=== PATIENT | female | born 1955 | race Caucasian/White ===

== ENCOUNTER 2017-08-30 17:26 | Inpatient (IN) | payer MEDICARE ==
[2017-08-30] MEDS ORDERED: Albuterol 0.083% Inhal Sol (2.5 mg/3 mL) UD INH STA (17:47)
[2017-08-30] MEDS ORDERED: Albuterol-Ipratrop 3 mg / 0.5 (3 ml) UD IH STA (17:47)
--- NOTE | 2017-08-30 17:50 | ED PDOC ---
Arrival/HPI - General Chief Complaint: Shortness Of Breath Time Seen by Provider: 08/30/17 17:36 Historian: Patient - History of Present Illness Narrative History of Present Illness (Text): 08/30/17 17:46 A 61 year old female, whose past medical history includes hypertension, hyperlipidemia, CHF, CAD, PE, colorectal cancer and colostomy bag, presents to the emergency department complaining of shortness of breath for 2-3 weeks. Patient reports her symptom has progressively worsened over the past few days which caused her to come in for further evaluation. Patient is conversationally dyspneic, family answering most questions. Patient denies any fever, chills, nausea, vomiting, abdominal pain, chest pain or any other complaints. Patient is on O2 at home. PMD: Dr. Florian Time/Duration: Other (2-3 weeks) Symptom Course: Worsening (past few days) Context: Home Past Medical History - Provider Review Nursing Documentation Reviewed: Yes - Infectious Disease Hx of Infectious Diseases: None - Tetanus Immunization Tetanus Immunization: Unknown - Reproductive Menopause: No - Cardiac Hx Cardiac Disorders: Yes Hx Hypertension: Yes - Neurological Hx Neurological Disorder: Yes Hx Dizziness: Yes - HEENT Hx Macular Degeneration: No - Renal Hx Renal Disorder: Yes Hx Kidney Stones: Yes - Endocrine/Metabolic Hx Diabetes Mellitus Type 2: Yes - Hematological/Oncological Hx Blood Transfusions: No Hx Blood Transfusion Reaction: No - Integumentary Hx Dermatological Disorder: No - Musculoskeletal/Rheumatological Hx Musculoskeletal Disorders: Yes (SCIATICA) Hx Falls: No Hx Unsteady Gait: Yes (WALKER) - Gastrointestinal Hx Gastrointestinal Disorders: Yes (RECTAL CA WITH COLOSTOMY,GI BLEED) - Genitourinary/Gynecological Hx Genitourinary Disorders: Yes (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,UTI) Hx Urinary Tract Infection: Yes - Psychiatric Hx Emotional Abuse: No Hx Physical Abuse: No Hx Substance Use: No - Surgical History Hx Appendectomy: Yes - Anesthesia Hx Anesthesia: Yes Hx Anesthesia Reactions: No Hx Malignant Hyperthermia: No - Suicidal Assessment Feels Threatened In Home Enviroment: No Family/Social History - Physician Review Nursing Documentation Reviewed: Yes Family/Social History: No Known Family HX Smoking Status: Never Smoked Hx Alcohol Use: No Hx Substance Use: No Hx Substance Use Treatment: No Allergies/Home Meds Allergies/Adverse Reactions: Allergies No Known Allergies Allergy (Verified 01/10/16 14:34) Home Medications: Home Meds Medication Instructions Recorded Confirmed Simvastatin 40 mg PO DAILY 03/16/14 01/12/16 ALPRAZolam [Xanax] 0.25 mg PO Q8 PRN 08/27/14 01/12/16 Acetaminophen [Tylenol] 650 mg PO Q4 PRN 08/27/14 01/12/16 Amino Acids/Protein Hydrolys 30 ml PO BID 08/27/14 01/12/16 [Pro-Stat Sugar Free 30 ml] Insulin Human (NPH)/Regular 10 units SC QPM 08/27/14 01/12/16 [Novolin 70/30 (70/30 units/ml) 10 ml] Insulin Human (NPH)/Regular 14 units SC QAM 08/27/14 01/12/16 [Novolin 70/30 (70/30 units/ml) 10 ml] Omeprazole [Prilosec] 20 mg PO BID 08/27/14 01/12/16 Sugar Freehealth Tabs Supplement 4 oz PO TID 08/27/14 01/12/16 HYDROmorphone [Dilaudid] 4 mg PO Q4H PRN 01/03/16 01/12/16 Review of Systems - Physician Review All systems were reviewed & negative as marked: Yes - Review of Systems Constitutional: absent: Fevers, Night Sweats Respiratory: SOB Cardiovascular: absent: Chest Pain Gastrointestinal: absent: Abdominal Pain, Nausea, Vomiting Physical Exam Vital Signs Temp Pulse Resp BP Pulse Ox 08/30/17 21:11 208/103 H 08/30/17 20:00 18 90 L 08/30/17 18:19 98.4 F 95 H 16 100 08/30/17 18:17 228/108 H Appearance: Positive for: Well-Appearing, Non-Toxic, Comfortable, Other ( Morbidly obese female) Pain Distress: None Mental Status: Positive for: Alert and Oriented X 3 - Systems Exam Head: Present: Atraumatic, Normocephalic Pupils: Present: PERRL Extroacular Muscles: Present: EOMI Conjunctiva: Present: Normal Mouth: Present: Moist Mucous Membranes Neck: Present: Normal Range of Motion, JVD Respiratory/Chest: Present: Good Air Exchange, Wheezes, Rales, Other (hoarse voice). No: Respiratory Distress, Accessory Muscle Use Cardiovascular: Present: Regular Rate and Rhythm, Normal S1, S2. No: Murmurs Abdomen: Present: Normal Bowel Sounds. No: Tenderness, Distention, Peritoneal Signs Back: Present: Normal Inspection Upper Extremity: Present: Normal Inspection, Normal ROM, NORMAL PULSES. No: Cyanosis, Edema Lower Extremity: Present: Edema (bilateral pitting edema), NORMAL PULSES, Normal ROM. No: CALF TENDERNESS Neurological: Present: GCS=15, CN II-XII Intact, Speech Normal Skin: Present: Warm, Dry, Normal Color. No: Rashes Psychiatric: Present: Alert, Oriented x 3, Normal Insight, Normal Concentration Medical Decision Making ED Course and Treatment: 08/30/17 17:46 Impression: A 61 year old female with worsening shortness of breath Plan: -- Angio chest CT -- Chest xray -- EKG -- Labs -- Urinalysis -- Albuterol, Duoneb, Lasix and Solumedrol -- Reassess and disposition Progress Notes: EKG shows NSR at [address]-segment elevations, normal intervals, normal axis. Interpreted by me. Report Date : 08/30/2017 18:33:27 Procedure: Chest xray Dictator : Radha Murillo MD IMPRESSION: Moderate cardiomegaly and severe pulmonary venous congestion. Question of mild perihilar pulmonary edema, worse in the right lung. - Lab Interpretations Lab Results: 08/30/17 18:30 08/30/17 18:30 Lab Results 08/30/17 19:00: Urine Color Light yellow, Urine Appearance Sl cloudy, Urine pH 7.0, Ur Specific [place] 1.020, Urine Protein 100 H, Urine Glucose (UA) Negative , Urine Ketones Negative, Urine Blood Small H, Urine Nitrate Positive H, Urine Bilirubin Negative, Urine Urobilinogen 0.2, Ur Leukocyte Esterase Trace H, Urine RBC 1 - 3, Urine WBC 10 - 15, Ur Epithelial Cells 1 - 3, Urine Bacteria Mod 08/30/17 18:30: Sodium 143, Potassium 5.1 H, Chloride 103, Carbon Dioxide 33, Anion Gap 12, BUN 27 H, Creatinine 1.2, Est GFR ( Amer) 55, Est GFR (Non- Af Amer) 46, Random Glucose 158 H, Calcium 9.8, Total Bilirubin 0.4, AST 35, ALT 11, Alkaline Phosphatase 167 H, Lactate Dehydrogenase 535, Total Creatine Kinase 57, Troponin I < 0.01 D, NT-Pro-B Natriuret Pep 1030 H, Total Protein 7.9, Albumin 3.5, Globulin 4.4, Albumin/Globulin Ratio 0.8 L 08/30/17 18:30: PT 12.0, INR 1.05 08/30/17 18:30: WBC 8.5, RBC 3.80, Hgb 10.0 L, Hct 33.3 L, MCV 87.6, MCH 26.3, MCHC 30.0 L, RDW 14.6 H, Plt Count 299, MPV 10.1, Gran % 73.1 H, Lymph % (Auto) 19.4 L, [place] % (Auto) 4.3, Eos % (Auto) 2.8, Baso % (Auto) 0.4, Gran # 6.24, Lymph # (Auto) 1.7, [place] # (Auto) 0.4, Eos # (Auto) 0.2, Baso # (Auto) 0.03 I have reviewed the lab results: Yes - RAD Interpretation Radiology Orders: 08/30/17 17:50 ANGIO CHEST PE PROTOCOL [CT] Stat CHEST PORTABLE [RAD] Stat - Medication Orders Current Medication Orders: Discontinued Medications Albuterol Sulfate (Albuterol 0.083% Inhal [place] (2.5 Mg/3 Ml) Ud) 5 mg INH STAT STA Stop: 08/30/17 17:48 Last Admin: 08/30/17 18:16 Dose: 5 mg Albuterol/Ipratropium (Duoneb 3 Mg/0.5 Mg (3 Ml) Ud) 3 ml IH STAT STA Stop: 08/30/17 17:48 Last Admin: 08/30/17 18:15 Dose: 3 ml Furosemide (Lasix) 40 mg IVP STAT STA Stop: 08/30/17 17:48 Last Admin: 08/30/17 18:17 Dose: 40 mg MAR Blood Pressure Document 08/30/17 18:17 EQ (Rec: 08/30/17 18:17 EQ [id number]) Blood Pressure Blood Pressure (100/60-150/90) 228/108 IVP Administration Document 08/30/17 18:17 EQ (Rec: 08/30/17 18:17 EQ [id number]) Charges for Administration # of IVP Administrations 1 Furosemide (Lasix) 40 mg IVP STAT STA Stop: 08/30/17 20:05 Last Admin: 08/30/17 21:11 Dose: 40 mg MAR Blood Pressure Document 08/30/17 21:11 EQ (Rec: 08/30/17 21:11 EQ [facility] [email or web address] Blood Pressure Blood Pressure (100/60-150/90) 208/103 IVP Administration Document 08/30/17 21:11 EQ (Rec: 08/30/17 21:11 EQ [facility] [email or web address] Charges for Administration # of IVP Administrations 1 Ceftriaxone Sodium (Rocephin 2 Gm Ivpb) 2 gm in 100 mls @ 100 mls/hr IVPB STAT STA PRN Reason: Protocol Stop: 08/30/17 21:03 Last Admin: 08/30/17 21:11 Dose: 100 mls/hr eMAR Start Stop Document 08/30/17 21:11 EQ (Rec: 08/30/17 21:12 EQ [facility] [email or web address] Intravenous Solution Start Date 08/30/17 Start Time 21:11 Methylprednisolone (Solu-Medrol) 125 mg IVP STAT STA Stop: 08/30/17 17:48 Last Admin: 08/30/17 18:15 Dose: 125 mg IVP Administration Document 08/30/17 18:15 EQ (Rec: 08/30/17 18:15 EQ [id number]) Charges for Administration # of IVP Administrations 1 - PA / TECHNICAL TRANSLATOR / Resident Statement MD/DO has reviewed & agrees with the documentation as recorded. - Scribe Statement The provider has reviewed the documentation as recorded by the Ervinibtyshawn Joseph Provider Scribe Attestation: All medical record entries made by the Scribe were at my direction and personally dictated by me. I have reviewed the chart and agree that the record accurately reflects my personal performance of the history, physical exam, medical decision making, and the department course for this patient. I have also personally directed, reviewed, and agree with the discharge instructions and disposition. Disposition/Present on Arrival - Present on Arrival Any Indicators Present on Arrival: No History of DVT/PE: No History of Uncontrolled Diabetes: No Urinary Catheter: No History of Decub. Ulcer: No History Surgical Site Infection Following: None - Disposition Have Diagnosis and Disposition been Completed?: Yes Diagnosis: Pulmonary edema, CHF (congestive heart failure), Respiratory compromise, Rectal carcinoma, Respiratory distress, Urinary tract infection Disposition: HOSPITALIZED Disposition Time: 22:28 Patient Plan: Admission, ICU Condition: CRITICAL
--- NOTE | 2017-08-30 18:35 | RAD ---
HISTORY: Dyspnea COMPARISON: 01/06/2016. FINDINGS: The right IJV line terminates at the cavoatrial junction. LUNGS: There is severe pulmonary venous congestion. There is perihilar haziness and opacity in the right lower lobe. PLEURA: No significant pleural effusion identified, no pneumothorax apparent. CARDIOVASCULAR: There is moderate cardiomegaly with prominent central vasculature. OSSEOUS STRUCTURES: No significant abnormalities. VISUALIZED UPPER ABDOMEN: Normal. OTHER FINDINGS: None. IMPRESSION: Moderate cardiomegaly and severe pulmonary venous congestion. Question of mild perihilar pulmonary edema, worse in the right lung.
[2017-08-30 18:51] LABS: BASO # 0.03 K/mm3 (0.0-2.0); BASO % 0.4 % (0.0-3.0); EOS # 0.2 (0.0-0.7); EOS % 2.8 % (1.5-5.0); GRAN # 6.24 (1.4-6.5); GRAN % 73.1 % (50.0-68.0); LYMPH # 1.7 (1.2-3.4); LYMPH % 19.4 % (22.0-35.0); MEAN CELL VOLUME 87.6 fl (80.0-105.0); MEAN CORPUSCULAR HEMOGLOBIN 26.3 pg (25.0-35.0); MEAN PLATELET VOLUME 10.1 fl (7.0-11.0); MONO # 0.4 (0.1-0.6); MONO % 4.3 % (1.0-6.0); RBC 3.8 10^6/uL (3.5-6.1); RED CELL DISTRIBUTION WIDTH 14.6 % (11.5-14.5); WHITE BLOOD COUNT 8.5 10^3/ul (4.5-11.0)
[2017-08-30 18:57] LABS: INR 1.05 (0.93-1.08)
[2017-08-30 18:58] LABS: ALB/GLOB RATIO 0.8 (1.1-1.8); ALBUMIN 3.5 g/dL (3.0-4.8); ALT/SGPT 11 U/L (7-56); AST/SGOT 35 U/L (14-36); BLOOD UREA NITROGEN 27 mg/dL (7-21); CALCIUM 9.8 mg/dL (8.4-10.5); GFR AFRICAN-AMERICAN 55; GFR NON-AFRICAN AMERICAN 46
[2017-08-30 19:10] LABS: B-TYPE NATRIURETIC PEPTIDE 1030 pg/mL (0-450); TROPONIN I < 0.01 ng/mL
[2017-08-30 19:11] LABS: URINE BILIRUBIN NEGATIVE (NEGATIVE); URINE BLOOD SMALL (NEGATIVE); URINE GLUCOSE (UA) NEGATIVE (NEGATIVE); URINE LEUKOCYTE ESTERASE TRACE Leu/uL (NEGATIVE); URINE PROTEIN 100 mg/dL (<30 mg/dL); URINE UROBILINOGEN 0.2 E.U./dL (<1 E.U./dL)
[2017-08-30 19:12] LABS: URINE APPEARANCE SL CLOUDY (CLEAR); URINE COLOR LIGHT YELLOW (YELLOW)
[2017-08-30 19:17] LABS: URINE BACTERIA MOD (NEG)
[2017-08-30] MEDS ORDERED: cefTRIAXone 2 GM IN NS 2 GM/100 ML BAG IVPB STA (20:04)
[2017-08-30 21:17] LABS: ARTERIAL BLOOD GAS HCO3 35.2 mmol/L (21-28); ARTERIAL BLOOD GAS O2 SAT 99.3 % (95-98); ARTERIAL BLOOD GAS PCO2 70 mm/Hg (35-45); ARTERIAL BLOOD GAS PH 7.31 (7.35-7.45); ARTERIAL BLOOD GAS TCO2 37.3 mmol.L (22-28)
--- NOTE | 2017-08-30 21:44 | CARD ---
APPROVED REPORT EKG Measurement Heart [id number] <Conclusion> Normal sinus rhythm Normal ECG
--- NOTE | 2017-08-30 23:12 | CP.PCM.CON ---
History of Present Illness - History of Present Illness History of Present Illness: History of Present Illness: The patient is a 61 year old woman with a history of CAD (s/p PCI), colorectal cancer (s/p colostomy), PE (s/p IVC filter and on Eliquis), HL, IDDM and HTN, who presents with 2-3 weeks of worsening SOB, MOSELEY, orthopnea and PND. She admits to inconsistant Lasix use. She denies chest pain, fevers, chills or cough. Home Medications: Per MAR Allergies: NKDA Past Medical History: Per HPI Past Surgical History: Per HPI Family History: Non-contributory Social History: Denies tobacco, alcohol or illicit drug use Review of Systems: 14 bodily systems reviewed and found to be negative except as noted in the HPI Physical Examination: Vitals (recorded below) GEN: Bipap in place; No acute distress HEENT: MMM; Unable to assess JVD due to Bipap machine and patient body habitus CARDS: Tachycardic; Regular rhythm RESP: Bibasilar crackles; No wheezes or accessory muscle use GI: Soft, NT, ND EXT: BLE pitting edema up to knees NEURO: Grossly normal exam Assessment and Plan: The patient is a 61 year old woman with a history of CAD (s/p PCI), colorectal cancer (s/p colostomy), PE (s/p IVC filter and on Eliquis), HL, IDDM and HTN, who presents with acute CHF exacerbation (due to Lasix non-compliance) and uncontrolled HTN. The patients symptoms markedly improved (per son sitting at bedside) after she started Bipap and recieved 2 doses of Lasix 40mg IV in the ED. As a result, she doesnt require ICU level of care. Recommend continued IV diruresis and Bipap. If her condition deteriorates, please feel free to re- consult. Thanks. Past Patient History - Infectious Disease Hx of Infectious Diseases: None - Tetanus Immunizations Tetanus Immunization: Unknown - Past Social History Smoking Status: Never Smoked - CARDIAC Hx Cardiac Disorders: Yes Hx Hypertension: Yes - NEUROLOGICAL Hx Neurological Disorder: Yes Hx Dizziness: Yes - HEENT Hx Macular Degeneration: No - RENAL Hx Chronic Kidney Disease: Yes Hx Kidney Stones: Yes - ENDOCRINE/METABOLIC Hx Diabetes Mellitus Type 2: Yes - HEMATOLOGICAL/ONCOLOGICAL Hx Blood Transfusions: No Hx Blood Transfusion Reaction: No - INTEGUMENTARY Hx Dermatological Problems: No - MUSCULOSKELETAL/RHEUMATOLOGICAL Hx Musculoskeletal Disorders: Yes (SCIATICA) Hx Falls: No Hx Unsteady Gait: Yes (WALKER) - GASTROINTESTINAL Hx Gastrointestinal Disorders: Yes (RECTAL CA WITH COLOSTOMY,GI BLEED) - GENITOURINARY/GYNECOLOGICAL Hx Genitourinary Disorders: Yes (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,UTI) Hx Urinary Tract Infection: Yes - PSYCHIATRIC Hx Emotional Abuse: No Hx Physical Abuse: No Hx Substance Use: No - SURGICAL HISTORY Hx Appendectomy: Yes - ANESTHESIA Hx Anesthesia: Yes Hx Anesthesia Reactions: No Hx Malignant Hyperthermia: No Meds Allergies/Adverse Reactions: Allergies Allergy/AdvReac Type Severity Reaction Status Date / Time No Known Allergies Allergy Verified 01/10/16 14:34 - Medications Medications: Current Medications Clonidine HCl (Catapres) 0.2 mg PO Q6H PRN PRN Reason: BP Systolic > 170 Results - Vital Signs Recent Vital Signs: Last Vital Signs Temp 98.6 F 08/30/17 22:49 Pulse 96 H 08/30/17 22:49 Resp 20 08/30/17 22:49 BP 169/79 H 08/30/17 22:49 Pulse Ox 100 08/30/17 22:49 - Labs Result Diagrams: 08/31/17 05:30 08/31/17 05:30 Labs: Laboratory Results - last 24 hr 08/30/17 21:05 pCO2 70 H pO2 381.0 H HCO3 35.2 H ABG pH 7.31 L ABG Total CO2 37.3 H ABG O2 Saturation 99.3 H ABG Base Excess 6.4 H ABG Potassium 4.7 Sodium 140.0 Chloride 108.0 H Glucose 187 H Lactate 0.4 L Mechanical Rate 20 FiO2 100.0 Inspiratory BiPAP 18 Arterial Blood Potassium 4.7
[2017-08-31] MEDS: Nitroglycerin 2% Ointment Foilpak UD TOP SCH ×3 (02:22→14:36)
--- NOTE | 2017-08-31 02:57 | CP.PCM.PN ---
Subjective - Date & Time of Evaluation Date of Evaluation: 08/31/17 Time of Evaluation: 02:57 - Subjective Subjective: Patient was seen at bedside. She complained of lowback pain and requested pain medication. When I saw her , she said that she does not have pain anymore after she changed position of bed . States that she takes dilaudid 8mg at home for pain when needed, last time she took it was 3 days ago. Has no other complaints now. Pertinent medical record was reviewed. This 61 year old woman was admitted with shortness of breath of 2-3 weeks duration. Has PMH of HTN,HLD,CHF,CAD, PE, morbid obesity,back pain,anemia,colostomy. Objective - Vital Signs/Intake and Output Vital Signs (last 24 hours): Temp Pulse Resp BP Pulse Ox 98.6 F 95 H 20 174/66 H 100 08/30/17 22:49 08/31/17 02:26 08/30/17 22:49 08/31/17 02:26 08/30/17 22:49 - Medications Medications: Current Medications Clonidine HCl (Catapres) 0.2 mg PO Q6H PRN PRN Reason: BP Systolic > 170 Last Admin: 08/31/17 01:08 Dose: 0.2 mg Furosemide (Lasix) 40 mg IVP Q12 JR Nitroglycerin (Nitro-Bid 2% Oint) 1 ea TOP Q6H JR Last Admin: 08/31/17 02:22 Dose: 1 ea - Labs Labs: PT 12.0 SECONDS (9.4-12.5) 08/30/17 18:30 INR 1.05 (0.93-1.08) 08/30/17 18:30 Most Recent Lab Values WBC 8.5 10^3/ul (4.5-11.0) 08/30/17 18:30 RBC 3.80 10^6/uL (3.5-6.1) 08/30/17 18:30 Hgb 10.0 g/dL (12.0-16.0) L 08/30/17 18:30 Hct 33.3 % (36.0-48.0) L 08/30/17 18:30 MCV 87.6 fl (80.0-105.0) 08/30/17 18:30 MCH 26.3 pg (25.0-35.0) 08/30/17 18:30 MCHC 30.0 g/dl (31.0-37.0) L 08/30/17 18:30 RDW 14.6 % (11.5-14.5) H 08/30/17 18:30 Plt Count 299 10^3/uL (120.0-450.0) 08/30/17 18: MPV 10.1 fl (7.0-11.0) 08/30/17 18: Gran % 73.1 % (50.0-68.0) H 08/30/17 18:30 Lymph % (Auto) 19.4 % (22.0-35.0) L 08/30/17 18: [place] % (Auto) 4.3 % (1.0-6.0) 08/30/17 18: Eos % (Auto) 2.8 % (1.5-5.0) 08/30/17 18: Baso % (Auto) 0.4 % (0.0-3.0) 08/30/17 18: Gran # 6.24 (1.4-6.5) 08/30/17 18:30 Lymph # (Auto) 1.7 (1.2-3.4) 08/30/17 18:30 [place] # (Auto) 0.4 (0.1-0.6) 08/30/17 18:30 Eos # (Auto) 0.2 (0.0-0.7) 08/30/17 18: Baso # (Auto) 0.03 K/mm3 (0.0-2.0) 08/30/17 18: PT 12.0 SECONDS (9.4-12.5) 08/30/17 18:30 INR 1.05 (0.93-1.08) 08/30/17 18:30 pCO2 70 mm/Hg (35-45) H 08/30/17 21:05 pO2 381.0 mm/Hg (80-100) H 08/30/17 21:05 HCO3 35.2 mmol/L (21-28) H 08/30/17 21:05 ABG pH 7.31 (7.35-7.45) L 08/30/17 21:05 ABG Total CO2 37.3 mmol.L (22-28) H 08/30/17 21:05 ABG O2 Saturation 99.3 % (95-98) H 08/30/17 21:05 ABG Base Excess 6.4 mmol/L (-2.0-3.0) H 08/30/17 21:05 ABG Potassium 4.7 mmol/L (3.6-5.2) 08/30/17 21:05 Sodium 140.0 mmol/L (132-148) 08/30/17 21:05 Chloride 108.0 mmol/L (98-107) H 08/30/17 21:05 Glucose 187 mg/dl (65-105) H 08/30/17 21:05 Lactate 0.4 mmol/L (0.7-2.1) L 08/30/17 21:05 Mechanical Rate 20 08/30/17 21:05 FiO2 100.0 % 08/30/17 21:05 Inspiratory BiPAP 18 08/30/17 21:05 Sodium 143 mmol/L (132-148) 08/30/17 18:30 Potassium 5.1 mmol/L (3.6-5.0) H 08/30/17 18:30 Chloride 103 mmol/L (98-107) 08/30/17 18:30 Carbon Dioxide 33 mmol/L (21-33) 08/30/17 18:30 Anion Gap 12 (10-20) 08/30/17 18:30 BUN 27 mg/dL (7-21) H 08/30/17 18:30 Creatinine 1.2 mg/dl (0.7-1.2) 08/30/17 18:30 Est GFR ( Amer) 55 08/30/17 18:30 Est GFR (Non-Af Amer) 46 08/30/17 18:30 Random Glucose 158 mg/dL (70-110) H 08/30/17 18:30 Calcium 9.8 mg/dL (8.4-10.5) 08/30/17 18:30 Total Bilirubin 0.4 mg/dL (0.2-1.3) 08/30/17 18:30 AST 35 U/L (14-36) 08/30/17 18:30 ALT 11 U/L (7-56) 08/30/17 18:30 Alkaline Phosphatase 167 U/L (38-126) H 08/30/17 18:30 Lactate Dehydrogenase 535 U/L (333-699) 08/30/17 18:30 Total Creatine Kinase 57 U/L (35-230) 08/30/17 18:30 Troponin I < 0.01 ng/mL D 08/30/17 18:30 NT-Pro-B Natriuret Pep 1030 pg/mL (0-450) H 08/30/17 18:30 Total Protein 7.9 g/dL (5.8-8.3) 08/30/17 18:30 Albumin 3.5 g/dL (3.0-4.8) 08/30/17 18:30 Globulin 4.4 gm/dL 08/30/17 18:30 Albumin/Globulin Ratio 0.8 (1.1-1.8) L 08/30/17 18:30 Arterial Blood Potassium 4.7 mmol/L (3.6-5.2) 08/30/17 21:05 Urine Color Light yellow (YELLOW) 08/30/17 19:00 Urine Appearance Sl cloudy (CLEAR) 08/30/17 19:00 Urine pH 7.0 (4.7-8.0) 08/30/17 19:00 Ur Specific [place] 1.020 (1.005-1.035) 08/30/17 19:00 Urine Protein 100 mg/dL (<30 mg/dL) H 08/30/17 19:00 Urine Glucose (UA) Negative mg/dL (NEGATIVE) 08/30/17 19:00 Urine Ketones Negative mg/dL (NEGATIVE) 08/30/17 19:00 Urine Blood Small (NEGATIVE) H 08/30/17 19:00 Urine Nitrate Positive (NEGATIVE) H 08/30/17 19:00 Urine Bilirubin Negative (NEGATIVE) 08/30/17 19:00 Urine Urobilinogen 0.2 E.U./dL (<1 E.U./dL) 08/30/17 19:00 Ur Leukocyte Esterase Trace [place]/uL (NEGATIVE) H 08/30/17 19:00 Urine RBC 1 - 3 /hpf (0-2) 08/30/17 19:00 Urine WBC 10 - 15 /hpf (0-6) 08/30/17 19:00 Ur Epithelial Cells 1 - 3 /hpf (0-5) 08/30/17 19:00 Urine Bacteria Mod (NEG) 08/30/17 19:00 - Constitutional Appears: Well, No Acute Distress - Head Exam Head Exam: ATRAUMATIC, NORMAL INSPECTION, NORMOCEPHALIC - Eye Exam Eye Exam: Normal appearance - ENT Exam ENT Exam: Normal External Ear Exam - Neck Exam Neck Exam: Normal Inspection - Respiratory Exam Respiratory Exam: NORMAL BREATHING PATTERN - Cardiovascular Exam Cardiovascular Exam: absent: JVD - GI/Abdominal Exam GI & Abdominal Exam: absent: Distended - Rectal Exam Rectal Exam: Deferred - Exam Additional comments: Deferred. - Extremities Exam Extremities Exam: Normal Inspection - Back Exam Back Exam: NORMAL INSPECTION - Neurological Exam Neurological Exam: Alert, Awake, Oriented x3 - Psychiatric Exam Psychiatric exam: Normal Affect, Normal Mood - Skin Skin Exam: Normal Color Assessment and Plan - Assessment and Plan (Free Text) Assessment: Back pain Dyspnea. Elevated blood pressure reading. Pulmonary edema. Anemia. HTN. MOrbid obesity. HLD. Rectal CA. IDDM. Hyperkalemia. Chronic back pain OA. Coronary stent placement. Plan: Dilaudid 2 mg IV x 1 prn later. Continue management as per PMD.
[2017-08-31 03:06] VITALS: BMI 49.9
[2017-08-31] MEDS ORDERED: HYDROmorphone 2 mg/ml ISec IVP STA (04:21)
[2017-08-31] MEDS ORDERED: HYDROmorphone 1 mg/ml ISec IVP STA (04:35)
[2017-08-31 04:47] LABS: ARTERIAL BLOOD GAS HCO3 33.1 mmol/L (21-28); ARTERIAL BLOOD GAS O2 SAT 98.4 % (95-98); ARTERIAL BLOOD GAS PCO2 51 mm/Hg (35-45); ARTERIAL BLOOD GAS PH 7.42 (7.35-7.45); ARTERIAL BLOOD GAS TCO2 34.7 mmol.L (22-28)
[2017-08-31 06:28] LABS: BASO # 0.01 K/mm3 (0.0-2.0); BASO % 0.1 % (0.0-3.0); GRAN # 6.45 (1.4-6.5); GRAN % 86.7 % (50.0-68.0); HEMOGLOBIN 10.2 g/dL (12.0-16.0); LYMPH % 12.9 % (22.0-35.0); MEAN CELL VOLUME 86.5 fl (80.0-105.0); MEAN CORPUSCULAR HEMOGLOBIN 26.6 pg (25.0-35.0); MEAN CORPUSCULAR HGB CONC 30.7 g/dl (31.0-37.0); MEAN PLATELET VOLUME 10.5 fl (7.0-11.0); MONO % 0.3 % (1.0-6.0); RBC 3.84 10^6/uL (3.5-6.1); RED CELL DISTRIBUTION WIDTH 14.5 % (11.5-14.5); WHITE BLOOD COUNT 7.4 10^3/ul (4.5-11.0)
[2017-08-31 07:37] LABS: ALB/GLOB RATIO 0.8 (1.1-1.8); ALBUMIN 3.4 g/dL (3.0-4.8); CALCIUM 9.8 mg/dL (8.4-10.5)
[2017-08-31] MEDS ORDERED: Sod Polystyrene Sulf 15 gm/60 ml Susp PO ONE (08:09)
[2017-08-31] MEDS: Insulin Reg-MEDIUM-Coverage SC SCH ×4 (10:30→21:42)
[2017-08-31] MEDS: Metoprolol Succinate 25 mg XL Tab PO SCH (10:31)
[2017-08-31] MEDS ORDERED: Insulin Reg-MEDIUM-Coverage SC SCH ×2 (11:30)
[2017-08-31] MEDS: Albuterol-Ipratrop 3 mg / 0.5 (3 ml) UD IH SCH ×2 (13:30→19:18)
[2017-08-31] MEDS: Morphine 4 mg/ml ISec IVP PRN ×2 (17:15→23:49)
[2017-08-31] MEDS: Cefepime IV 2 gm in NS 2 GM/100 ML BAG IVPB SCH ×2 (17:15→22:03)
[2017-08-31] MEDS: Pantoprazole 20 mg EC Tab PO SCH (17:15)
[2017-08-31] MEDS ORDERED: Insulin Detemir 100 units/ml Vial (Levemir) SC SCH (18:00)
[2017-08-31] MEDS: MethylPREDNISolone 40 mg Vial IVP SCH (21:41)
[2017-09-01] MEDS: Albuterol-Ipratrop 3 mg / 0.5 (3 ml) UD IH SCH ×5 (01:19→23:00)
--- NOTE | 2017-09-01 06:02 | CON ---
DATE: PULMONARY CONSULTATION REFERRING PHYSICIAN: Dr. Florian. REASON FOR CONSULTATION: Cough, rhinitis, shortness of breath, sleep apnea syndrome, pulmonary hypertension. HISTORY OF PRESENT ILLNESS: This is a 61-year-old female with known history of morbid obesity, pulmonary hypertension, hypertension, hyperlipidemia, sleep apnea syndrome, coronary artery disease, history of colorectal cancer requiring colectomy and colostomy, comes into emergency room with progressive shortness of breath, cough, rhinitis, sputum production. No hemoptysis, no hematemesis, no hematuria. No diarrhea reported. Patient has home oxygen and CPAP. PAST MEDICAL HISTORY: As per history present illness. Also has diabetes, history of recurrent UTI. ALLERGIES: NONE KNOWN. SOCIAL HISTORY: Nonsmoker, nondrinker. FAMILY HISTORY: No significant cardiopulmonary disease reported. MEDICATIONS: She is on Catapres 0.2 mg every hours p.r.n., clonidine 0.1 mg every 4 hours p.r.n., doxycycline 100 mg twice a day, DuoNeb every 6 hours [id number], Eliquis 5 mg twice a day, insulin coverage, Imdur 60 mg daily, Lasix 40 mg twice a day, Levemir 10 units subcu twice a day, cefepime 2 g IV every 12 hours, morphine mg IV every 4 hours p.r.n., Norvasc 10 mg daily, Protonix 20 mg every 8 hours, Toprol-XL 75 mg twice a day. REVIEW OF SYSTEMS: Headache and rhinitis, postnasal drip, cough, shortness of breath. No hemoptysis, no hematemesis, no hematuria. Has back pain. Does have leg swelling. PHYSICAL EXAMINATION: VITAL SIGNS: Temperature is 98, heart rate is 88, respiratory rate is 22, blood pressure 166/88, pulse ox 97% on nasal cannula. HEENT: Moist mucous membrane. Crowded airway. Mallampati score is IV. NECK: Supple. No JVD. LUNGS: Have scattered rhonchi and few wheezing. HEART: S1 and S2. ABDOMEN: Soft, nontender, nondistended. Colostomy is draining well. EXTREMITIES: Trace edema. NEUROLOGIC: Awake and alert, follows simple command. LABORATORY DATA: Shows hemoglobin 10.2, hematocrit 33.2, WBC 7.4, platelet is 328. INR 1.05. Blood gas is done, which shows pH 7.42, pCO2 51, O2 81. On admission, pCO2 was 70. Sodium 141, potassium 4.3, chloride 100, bicarbonate 34, BUN 27, creatinine 1.2, glucose 246, calcium 9.8, phosphorus 4.3, magnesium 1.7, AST 38, ALT 17, alk phos is 159. Albumin is 3.4. Urinalysis shows wbc 10 to 15, rbc 1 to 3. Chest x-ray done in ER shows moderate cardiomegaly with severe pulmonary venous congestion with mild perihilar pulmonary edema. IMPRESSION AND PLAN: Exacerbation of chronic obstructive lung disease with rhinitis; postnasal drip and cough; respiratory failure with hypoxemia and CO2 retention, requiring noninvasive ventilation; has a sleep apnea syndrome; rectal carcinoma, requiring laparotomy with hemicolectomy and colostomy; anemia; obesity; hypertension; diabetes; pulmonary hypertension. Case discussed with Dr. Florian in detail. We will add Flonase 1 spay each nostril twice a day, Singulair 10 mg at bedtime, Zyrtec 10 mg at bedtime. May add Solu-Medrol 20 mg every 12 hours. Continue antibiotics. We will place her on bilevel positive airway pressure with nasal mask while sleeping and p.r.n. She had echocardiogram done about 4 years ago, which showed right ventricular systolic pressure is 33 and normal left ventricular wall thickening. Left ventricular function was normal, so we will repeat transthoracic echocardiogram in hope to assess right ventricular and left ventricular function and check pulmonary pressure. Thank you and we will follow with you. Pamela Ayala MD : 08/31/2017 20:17:43
[2017-09-01] MEDS: Pantoprazole 20 mg EC Tab PO SCH ×2 (06:25→18:14)
[2017-09-01 06:35] LABS: HEMOGLOBIN 9.2 g/dL (12.0-16.0); MEAN CORPUSCULAR HEMOGLOBIN 26.4 pg (25.0-35.0); MEAN CORPUSCULAR HGB CONC 30.7 g/dl (31.0-37.0); MEAN PLATELET VOLUME 10.3 fl (7.0-11.0); RBC 3.49 10^6/uL (3.5-6.1); RED CELL DISTRIBUTION WIDTH 14.6 % (11.5-14.5); WHITE BLOOD COUNT 5.4 10^3/ul (4.5-11.0)
[2017-09-01 06:47] LABS: ALB/GLOB RATIO 0.8 (1.1-1.8); CALCIUM 9.2 mg/dL (8.4-10.5)
[2017-09-01] MEDS: Insulin Reg-MEDIUM-Coverage SC SCH ×4 (08:14→22:15)
[2017-09-01] MEDS ORDERED: Insulin Detemir 100 units/ml Vial (Levemir) SC SCH (10:00)
[2017-09-01] MEDS: Fluticasone Nasal 50 mcg/Spray NS SCH (11:03)
[2017-09-01] MEDS: MethylPREDNISolone 40 mg Vial IVP SCH ×2 (11:04→22:19)
[2017-09-01] MEDS: Cefepime IV 2 gm in NS 2 GM/100 ML BAG IVPB SCH ×2 (11:04→22:20)
[2017-09-01] MEDS: Metoprolol Succinate 25 mg XL Tab PO SCH (11:06)
[2017-09-01] MEDS: Insulin Lispro 1 UNITS/0.01 ML SC SCH ×2 (13:02→18:11)
--- NOTE | 2017-09-01 13:46 | PN ---
DATE: PULMONARY PROGRESS NOTE REFERRING PHYSICIAN: Dr. Florian SUBJECTIVE: The patient is lying in the bed, head at 45 degrees. Part of the night, she used BiPAP. Rhinitis, cough better. No nausea, abdominal pain, diarrhea. Mild leg swelling. OBJECTIVE GENERAL: In no acute distress. VITAL SIGNS: Temperature is 98, heart rate is 78, respiratory rate is 20, blood pressure 165/64, pulse ox 96% on nasal cannula. HEENT: Moist mucous membrane. Small oral cavity. Crowded airway. NECK: Supple. No JVD. LUNGS: Had scattered rhonchi HEART: S1 and S2. ABDOMEN: Soft, nontender, nondistended. Colostomy bag looks okay, draining well. EXTREMITIES: Not much edema. NEUROLOGIC: Awake, alert. Follows simple command. MEDICATIONS: She is on Catapres 0.2 mg every 6 hours p.r.n. also clonidine 0.1 mg every 4 hours p.r.n., Claritin 10 mg daily, doxycycline 100 mg twice a day, DuoNeb every 6 hours, Eliquis 5 mg twice a day, Flonase one spray each nostril daily, insulin coverage, Imdur 60 mg daily, Lasix 40 mg twice a day, Levemir 10 units subcutaneous twice a day, cefepime 2 g IV every 12 hours, morphine 4 mg every 4 hours p.r.n., Norvasc 10 mg daily, Protonix 40 mg daily, Singulair 10 mg daily, Solu-Medrol 20 mg every 12 hour, Toprol-XL 75 mg daily. LABORATORY DATA: Shows hemoglobin 9.2, hematocrit 30, WBC 5.4, platelet is 303,000. Sodium 141, potassium 4.9, chloride 97, bicarbonate 38, BUN 37, creatinine 1.5, glucose 293, calcium 9.2. AST 26, ALT 21, alkaline phosphatase is 126. Album is 3. IMPRESSION AND PLAN: Exacerbation of chronic obstructive lung disease with rhinitis; postnasal drip and cough; respiratory failure with hypoxemia; carbon dioxide retention, requiring noninvasive ventilation; sleep apnea syndrome; rectal carcinoma requiring surgery, has a colostomy, working well; obesity; hypertension; diabetes; pulmonary hypertension. Pulmonary point of view, doing okay. Encourage continuous positive airway pressure use. Keep head at 45 degrees. Intravenous and inhaled bronchodilator, antibiotics. Gastric prophylaxis. Fall precaution. Thank you and we will follow with you. Pamela Ayala MD
--- NOTE | 2017-09-01 15:31 | CARD ---
APPROVED REPORT EXAM: Two-dimensional and M-mode echocardiogram with Doppler and color Doppler. INDICATION 2D DIMENSIONS IVSd1.8 (0.7-1.1cm)LVDd3.7 (3.9-5.9cm) PWd1.5 (0.7-1.1cm)LVDs2.7 (2.5-4.0cm) FS (%) 26.6 %LVEF (%)53.0 (>50%) M-Mode DIMENSIONS Left Atrium (MM)4.50 (2.5-4.0cm)Aortic Root2.90 (2.2-3.7cm) Aortic Cusp Exc.1.70 (1.5-2.0cm) Aortic Valve AoV Peak Gbdnhndn380.0cm/Amanda Peak GR.16mmHg Mitral Valve MV E Oiceerqv120.0cm/sMV A Lepahdim538.0cm/sE/A ratio1.2 TDI Lateral E' Peak V6.63cm/sMedial E' Peak V7.60cm/sE/Lateral E'20.4 E/Medial E'17.8 Tricuspid Valve TR Peak Mtpcytwt187ve/sRAP [id number] Peak Gr.15mmHg [id number] LEFT VENTRICLE The left ventricle is normal size. There is moderate concentric left ventricular hypertrophy. The left ventricular function is normal. The left ventricular ejection fraction is within the normal range. There is normal LV segmental wall motion. Transmitral Doppler flow pattern is Grade II-pseudonormal filling dynamics. RIGHT VENTRICLE The right ventricle is normal size. There is normal right ventricular wall thickness. The right ventricular systolic function is normal. ATRIA The left atrium is mildly dilated. The right atrium size is normal. AORTIC VALVE The aortic valve is not well visualized. No aortic regurgitation is present. There is no aortic valvular stenosis. MITRAL VALVE Mitral annular calcification is mild to moderate. There is no mitral valve regurgitation noted. There is no mitral valve stenosis. TRICUSPID VALVE The tricuspid valve is normal in structure. There is no tricuspid valve regurgitation noted. GREAT VESSELS The aortic root is normal in size. The IVC is normal in size and collapses >50% with inspiration. PERICARDIAL EFFUSION There is no pericardial effusion. <Conclusion> Poor Echo window The left ventricle is normal size. There is moderate concentric left ventricular hypertrophy. The left ventricular function is normal. The left ventricular ejection fraction is within the normal range. There is normal LV segmental wall motion. Transmitral Doppler flow pattern is Grade II-pseudonormal filling dynamics.
[2017-09-01] MEDS: Insulin Detemir 100 units/ml Vial (Levemir) SC SCH (18:12)
--- NOTE | 2017-09-01 21:29 | HP ---
DATE OF EXAM: 08/31/2017 MAIN COMPLAINT: Dyspnea. HISTORY OF PRESENT ILLNESS: This is a 61-year-old female with history of hypertension, poorly controlled diabetes, on insulin, hypercholesterolemia, morbid obesity, colorectal cancer with colostomy bag and has been short of breath for the last 3 weeks. The patient seems getting dyspneic. However, the son called patient getting more dyspneic, she could not get out of the bed for the last few days. She denied any chest pain, any fever, any chills. She also noted her legs swell up and she came to the ER for evaluation. The patient does have a history of congestive heart failure in the past, coronary artery disease with stent placement. She had a history of PE and DVT in the past. No other complaints. PAST MEDICAL HISTORY: As I mentioned above, she had a history of colorectal cancer mainly 5 years ago, colostomy, she had radiation/chemo, she had hypertension poorly controlled, she has morbid obesity, she has insulin dependent diabetes, she has chronic severe back pain and chronic arthritis, hypercholesterolemia, history of urinary tract infection, kidney stone. ALLERGIES: NO KNOWN ALLERGIES. SOCIAL HISTORY: She is a . She lives herself. There are people to serve her, but her son lives in the same building. MEDICATIONS: She takes multiple medications including fentanyl patch 50 mcg every 3 days, clonidine 0.1 every 4 hours p.r.n., Norvasc 10 mg once a day, she takes simvastatin 40 mg p.o. daily, Lyrica 150 mg t.i.d., Protonix 40 mg once a day, Ditropan 5 mg b.i.d., Prilosec 20 mg b.i.d., Toprol-XL 75 mg once a day, mag oxide 400 mg t.i.d., Cozaar 50 mg daily, Imdur 60 mg daily, insulin 70/30 14 units in the morning and 14 units at night, Levemir 30 units b.i.d., Eliquis 5 mg b.i.d., aspirin 81 mg once a day, Lipitor 20 mg once a day. REVIEW OF SYSTEMS: As in the history of present illness, the patient does have difficulty ambulating because of her morbid obesity, chronic back pain, arthritis, and poor general conditions. PHYSICAL EXAMINATION: VITAL SIGNS: Her temperature is 98.4, heart rate 95, blood pressure is very high at 208/88, respirations 20, saturating on oxygen 95%. HEAD AND NECK: Normal. CHEST: Clear bilateral, diminished breath sounds bilaterally. ABDOMEN: Soft, there is mild tenderness around the colostomy bag. EXTREMITIES: There is mild edema bilaterally, it was worse . NEUROLOGICAL: The patient moves all extremities. She is alert, awake, oriented times 3. LABORATORY DATA: Her laboratory study shows white count 7.4, hemoglobin 10.2, hematocrit 33.2, platelets 328. Chemistry noted for sodium 141, potassium 5.3, chloride 100, bicarbonate 34, BUN 27, creatinine 1.2. Blood sugar is 276. Calcium 9.8, phosphorus 4.3, magnesium 1.7, and AST slightly elevated at 38, Alk phos 169 elevated, and ALT is normal. The patient also had a blood gas when she came in and it shows initially pCO2 is 70, pO2 is 381, bicarb 35, pH 7.31. The patient has respiratory acidosis. The patient had a chest x-ray done while in Emergency Room and there is severe pulmonary vascular congestion. There is perihilar haziness opacity in the right lower lobe. IMPRESSION AND PLAN: This is a 61-year-old female with morbid obesity, hypertension, insulin dependent diabetes, colorectal cancer, colostomy bag, has been short of breath for the last few weeks, got worse, with edema in the lower extremity, coughing. The patient is initially admitted to Intensive Care Unit and she is doing well and transferred to telemetry. At this time, the patient will be admitted as above to Intensive Care Unit, intravenous Lasix, oxygen, intravenous steroids, inhaled bronchodilators. Pulmonary consult, Dr. Ayala. Cardiology consult, Dr. Raleigh Sepulveda. We will continue nebulizer treatment, continue intravenous Lasix. Infectious Disease consultation, Dr. Mathew. Continue Rocephin, Zithromax for pneumonia and we will follow up clinically. Also, we will get troponin and we would repeat labs in the morning. Continue all other blood pressure medicines, insulin and follow up. We will follow up clinically. Elroy Florian MD [facility] # [id number]
--- NOTE | 2017-09-01 22:47 | CON ---
DATE: 09/01/2017 LOCATION: The patient seen in room 262, bed 1. CHIEF COMPLAINT: Shortness of breath times 3 weeks, which has gotten worse in the past few days. HISTORY OF PRESENT ILLNESS: This is a 61-year-old female with a history of morbid obesity with BMI of 53, diabetes mellitus; hypertension; coronary artery disease; congestive heart failure; rectal cancer, which was unresectable, had a chemotherapy and radiation; also had obstructive sleep apnea; pulmonary emboli; VRE urinary tract infection, ESBL Klebsiella; pyelonephritis who was admitted with shortness of breath. No fevers, no chills. There is mild cough. No chest pain, no hemoptysis. No abdominal pain, diarrhea, or constipation. No dysuria or frequency. PAST MEDICAL HISTORY: Significant for diabetes mellitus; hypertension; congestive heart failure; coronary artery disease; morbid obesity with a BMI of 53; rectal cancer, unresectable with chemotherapy and radiation; obstructive sleep apnea; pulmonary emboli; VRE urinary tract infection, ESBL Klebsiella; pyelonephritis. PAST SURGICAL HISTORY: Significant for Port-A-Cath, IVC filter, colostomy, and appendectomy. ALLERGIES: THE PATIENT HAS NO KNOWN ALLERGIES. MEDICATIONS AT HOME: Revealed the patient to be on pantoprazole, metoprolol, losartan, isosorbide, insulin, glipizide, enoxaparin, and atorvastatin. PHYSICAL EXAMINATION: GENERAL: She is in bed, in no acute distress. VITAL SIGNS: Temperature of 97, blood pressure is 160/60, respiratory rate of 20, and heart rate of 74, it regan up to 104. HEENT: Unremarkable. NECK: Supple. LUNGS: Have decreased breath sounds. HEART: Normal S1, S2. ABDOMEN: Soft, nontender. LABORATORY DATA: Chest x-ray shows congestion. White count of 8.5, hemoglobin of 10, platelets of 299. BUN of 37, creatinine of 1.5. Urinalysis is noted, 10 to 15 wbc's, moderate bacteria. Urine has gram-negative hong. ASSESSMENT AND PLAN: This is a 61-year-old female with morbid obesity with body mass index of 53; diabetes; hypertension; coronary artery disease; congestive heart failure; rectal cancer, on chemotherapy and radiation; obstructive sleep apnea; pulmonary emboli; vancomycin-resistant Enterococcus urinary tract infection, extended-spectrum beta-lactamase Klebsiella; pyelonephritis exacerbation of chronic obstructive lung disease with gram-negative rods in urine; however, the patient is asymptomatic. We will treat the patient with doxycycline and cefepime pending blood culture and procalcitonin. The patient is also on Solu-Medrol. We will follow with you. Lawrence Cheek MD
[2017-09-02] MEDS: Albuterol-Ipratrop 3 mg / 0.5 (3 ml) UD IH SCH ×4 (02:00→20:35)
[2017-09-02] MEDS: Morphine 4 mg/ml ISec IVP PRN (02:03)
--- NOTE | 2017-09-02 03:51 | CON ---
DATE: This patient was seen and evaluated earlier. REASON FOR CONSULTATION: Abdominal pain. HISTORY OF PRESENT ILLNESS: This 61-year-old patient with a past medical history of morbid obesity, pulmonary hypertension, dyslipidemia, obstructive sleep apnea, coronary artery disease, history of rectal carcinoma, status post radiation, chemo, status post AP resection, history of C. diff colitis, also complaining of diffuse abdominal pain. She also notices small amount of blood from the colostomy site. Patient has been followed by Dr. Faye for rectal carcinoma. Patient had a PET scan done about three months ago, it was reported as suboptimal study due to the patient's habitus, otherwise no increased significant uptake. The patient has history of chronic back pain, history of rhinitis, headache. PAST MEDICAL HISTORY: Other past medical history significant as above, history of diabetes mellitus, history of recurrent UTI, history of C. diff. ALLERGIES: NO KNOWN DRUG ALLERGIES. SOCIAL HISTORY: Denies smoking, alcohol. FAMILY HISTORY: Noncontributory. REVIEW OF SYSTEMS: Positive as above. Other systems reviewed and negative. PHYSICAL EXAMINATION: GENERAL: Patient is lying on the bed, not in acute distress. VITAL SIGNS: Temperature is 98.1, pulse 78, blood pressure 172/77, respirations 18. HEENT: Atraumatic, anicteric. NECK: Supple. HEART: S1, S2 heard. LUNGS: Bilateral air entry present. ABDOMEN: Soft. There is a colostomy present. There is also dressing covering the left lower wound present. EXTREMITIES: No cyanosis, no clubbing. NEUROLOGICAL: Alert, oriented, moves all the extremities. LABORATORY DATA: Hemoglobin 9.2, hematocrit 30, WBC 5.4, platelets 303. Chemistry shows BUN 37, creatinine 1.5. LFTs normal. IMPRESSION: This 61-year-old patient admitted with the shortness of breath. Patient has chronic obstructive pulmonary disease, fluid retention, hypoxia, being treated, has abdominal pain, has colostomy in place, history of rectal cancer, status post radiation therapy and abdominoperineal resection. Other past medical history significant for diabetes mellitus, chronic obstructive pulmonary disease, dyslipidemia, hypertension, obesity, pulmonary hypertension. Continue the antibiotics and bronchodilators. Patient is presently on Eliquis, antibiotics. Patient has acute on chronic kidney injury. Would recommend; 1. Stool for C. diff. 2. Request for an ultrasound scan of the abdomen. 3. Empirically we will continue the patient on PPI. 4. Continue to closely follow up her care and suggest further workup. We will also discuss with oncologist regarding the GI workup. RECOMMENDATIONS: Last colonoscopy evaluated. Patient would benefits. Thank you very much for allowing us to participate in the care of the patient. Gita Benitez MD
[2017-09-02] MEDS: Pantoprazole 20 mg EC Tab PO SCH ×2 (05:44→17:39)
[2017-09-02 07:07] LABS: MEAN CELL VOLUME 84.6 fl (80.0-105.0); MEAN CORPUSCULAR HEMOGLOBIN 26.2 pg (25.0-35.0); MEAN CORPUSCULAR HGB CONC 30.9 g/dl (31.0-37.0); MEAN PLATELET VOLUME 10.5 fl (7.0-11.0); RBC 3.44 10^6/uL (3.5-6.1); RED CELL DISTRIBUTION WIDTH 14.2 % (11.5-14.5); WHITE BLOOD COUNT 6.3 10^3/ul (4.5-11.0)
--- NOTE | 2017-09-02 08:13 | CON ---
262, bed 1. This consult is being dictated on behalf of Dr. Sepulveda whom I am covering. REASON FOR CONSULTATION: Shortness of breath, congestive heart failure, hypertension, diabetes, coronary artery disease, history of stent insertion. HISTORY OF PRESENT ILLNESS: Patient is a 61-year-old female, known case of coronary artery disease, history of stent insertion, CHF, hypertension, diabetes, morbid obesity, status post surgery for colorectal cancer with colostomy bag admitted with shortness of breath since last three weeks, which has been gradually getting worse. Patient also got edema in the legs. Patient denies chest pain or palpitation. Patient sleeps upright. PAST MEDICAL HISTORY: As mentioned above, history of coronary artery disease, history of stent, history of CHF, hypertension, diabetes, hyperlipidemia, morbid obesity, colorectal cancer 5 years ago for which she had surgery and had colostomy bag, back pain, chronic arthritis, hypercholesterolemia, history of urinary tract infection, kidney stone. ALLERGIES: NO KNOWN ALLERGIES. PERSONAL HISTORY: Denies smoking, denies drinking. MEDICATIONS: Patient is on multiple medications as per the list. REVIEW OF SYSTEMS: All the systems reviewed. Positives mentioned in the history, others were negative. PHYSICAL EXAMINATION VITAL SIGNS: Blood pressure 154/65, respirations 18, pulse 78, temperature 98.1. HEENT: Head is normocephalic. Eyes: Pupils normal. Conjunctivae slightly pale. NECK: JVP low. Carotids equal. THORAX: AP diameter normal. LUNGS: Bilateral rales. CARDIOVASCULAR: S1 and S2. ABDOMEN: Protuberant, colostomy bag. EXTREMITIES: 2+ to 3+ edema, bilateral legs. LABORATORY DATA: WBC 5.4, hemoglobin 9.2, hematocrit 30, platelets 303,000. Sodium 141, potassium 4.9, BUN 37, creatinine 1.5, sugar 250. AST and ALT are normal. Total protein, albumin normal. Chest x-ray: Congestive heart failure, perihilar haziness and opacity in the right lower lobe, cardiomegaly. EKG shows regular sinus rhythm. DIAGNOSES: Congestive heart failure, pulmonary edema, coronary artery disease, history of stent insertion, hypertension, diabetes mellitus, morbid obesity, colorectal cancer, arthritis, back pain, hypercholesterolemia, history of urinary tract infection, history of kidney stone. Patient is on doxycycline hyclate 100 mg p.o. every 12 hours, Eliquis 5 mg b.i.d., insulin is added, isosorbide mononitrate 60 mg daily, furosemide 40 mg IV every 12 hours, cefepime IV 2 g every 12 hours, amlodipine 10 mg daily, Protonix 20 mg b.i.d., Singulair 10 mg at bedtime, methylprednisolone 20 mg IV every 12 hours, metoprolol succinate 75 mg p.o. daily. We will add Cozaar 50 mg daily that the patient was taking at home. Advised patient to lose weight. We will follow with you. We will monitor intake and output and follow up electrolytes and BUN. Pamela Hernandez MD
[2017-09-02] MEDS: Metoprolol Succinate 25 mg XL Tab PO SCH (08:45)
[2017-09-02] MEDS: Insulin Lispro 1 UNITS/0.01 ML SC SCH ×3 (08:46→17:40)
[2017-09-02] MEDS: Insulin Reg-MEDIUM-Coverage SC SCH ×4 (08:46→21:40)
[2017-09-02] MEDS: MethylPREDNISolone 40 mg Vial IVP SCH (11:15)
[2017-09-02] MEDS: Fluticasone Nasal 50 mcg/Spray NS SCH (11:16)
[2017-09-02] MEDS: Cefepime IV 2 gm in NS 2 GM/100 ML BAG IVPB SCH ×2 (11:17→21:31)
[2017-09-02] MEDS: Insulin Detemir 100 units/ml Vial (Levemir) SC SCH ×2 (11:17→17:40)
--- NOTE | 2017-09-02 17:48 | PN ---
DATE: SUBJECTIVE: The patient was seen earlier this morning in 261, bed 1. No fevers. No chills. No nausea or vomiting. PHYSICAL EXAMINATION VITAL SIGNS: Temperature is 98, blood pressure is 160/70, respiratory rate 20, heart rate of 90. HEENT: Examination is unremarkable. NECK: Supple, LUNGS: Have decreased breath sounds. HEART: Normal S1, S2. ABDOMEN: Soft. LABORATORY DATA: Reveals a white count of 6.3, hemoglobin of 9. Platelets of 313,000. Chemistry reveals a BUN of 37, creatinine is 1.5. Procalcitonin is 0.07. Influenza is negative. Microbiology reveals the patient's urine has Providencia stuartii. Blood cultures are negative. The Providencia is resistant to cefazolin and Cipro, sensitive to cefepime and meropenem. The patient is on cefepime, doxycycline and Solu-Medrol. ASSESSMENT AND PLAN: This is a 61-year-old female with history of morbid obesity, body mass index of 53, diabetes mellitus, hypertension, coronary artery disease, congestive heart failure, rectal cancer. chemotherapy radiation, obstructive sleep apnea, pulmonary emboli, vancomycin-resistant enterococci urinary tract infection, extended-spectrum beta-lactamases Klebsiella, pyelonephritis with rectal cancer, congestive heart failure, vancomycin-resistant enterococci urinary tract infection with Providencia urinary tract infection. The patient is asymptomatic. Admitted with exacerbation of chronic obstructive lung disease with normal procalcitonin. We will check on final culture result. The patient does not have any urinary symptoms. Lawrence Cheek MD
--- NOTE | 2017-09-02 21:35 | PN ---
DATE: 09/02/2017 LOCATION: The patient is in room 262, bed 1. This progress note is being dictated on behalf of Dr. Sepulveda, whom I am covering. REASON FOR CONSULTATION AND FOLLOWUP: Shortness of breath, congestive heart failure, hypertension, diabetes, coronary artery disease, history of stent insertion. SUBJECTIVE: Patient admitted with congestive heart failure. She states her breathing is improving. Denies chest pain or palpitations. PHYSICAL EXAMINATION VITAL SIGNS: Blood pressure 169/73, respirations 20, pulse 90, temperature 98.1. HEENT: Head is normocephalic. Eyes; pupils are normal. Conjunctivae slightly pale. NECK: JVP is low. Carotids are equal. THORAX: AP diameter normal. LUNGS: Basal rales. CARDIOVASCULAR: S1 and S2. ABDOMEN: Protuberant, has colostomy. EXTREMITIES: No clubbing. No cyanosis. LABORATORY DATA: WBC 6.3, hemoglobin 9.0, hematocrit 29.1, platelet 313. Random sugar 239. Sodium 141, potassium 4.9, BUN 37, creatinine 1.5. Total protein 6.9, albumin 3.0. Echo on 09/01/2017, poor echo window, left ventricle normal size, moderate concentric left ventricular hypertrophy; left ventricle systolic function normal; transmitral Doppler flow pattern is grade II; pseudonormal filling dynamics; ejection fraction around 53%. PLAN: We will continue diuretics, Lasix 40 mg IV b.i.d.; we will increase dose of losartan to 100 mg daily, because blood pressure is elevated; patient is on Eliquis 5 mg b.i.d.; doxycycline 100 mg p.o. every 12 hours; isosorbide mononitrate 60 p.o. daily; cefepime 2 g IV every 12 hours; methylprednisolone 20 mg IV daily; metoprolol succinate 75 mg b.i.d. Since BUN went up to 37, creatinine 1.5, we will add hydralazine to therapy to help her blood pressure. We will repeat chest x-ray tomorrow and Dr. Sepulveda will follow patient starting tomorrow. Pamela Hernandez MD [facility] # [id number]
--- NOTE | 2017-09-02 21:49 | PN ---
DATE: PULMONARY PROGRESS NOTE REFERRING PHYSICIAN: Elroy Florian MD SUBJECTIVE: She is lying in the bed, not very compliant with the CPAP and BiPAP. Rhinitis, cough and sputum production is better. No nausea. No vomiting. No abdominal pain. Colostomy bag working well. Leg swelling is better. PHYSICAL EXAMINATION: GENERAL: No acute distress. VITAL SIGNS: Temperature is 98, heart rate is 90, respiratory rate is 20, blood pressure 169/73, pulse ox 98% on nasal cannula. HEENT: Moist mucous membrane. Crowded airway. Mallampati score is 4. NECK: Supple. No JVD. LUNGS: Have scattered rhonchi. HEART: S1 and S2. ABDOMEN: Soft, nontender, nondistended. Colostomy bag looks okay. EXTREMITIES: There is no edema. NEUROLOGIC: Awake and alert, follows simple command. MEDICATIONS: She is on clonidine 0.2 mg every 6 hours p.r.n., Claritin 10 mg daily, Cozaar 50 mg daily, doxycycline 100 mg twice a day, DuoNeb every 6 hours, Eliquis 5 mg twice a day, Flonase one spray each nostril daily, insulin coverage, Lasix 40 mg every 12 hours, Levemir 20 units subcutaneous twice a day, cefepime 2 g IV every 12 hours, morphine 4 mg every 4 hours p.r.n., amlodipine 10 mg daily, Protonix 20 mg twice a day, Singulair 10 mg daily, Solu-Medrol 20 mg every 12 hours, Toprol-XL 75 mg daily, Tylenol p.r.n. basis. LABORATORY DATA: Shows hemoglobin 9, hematocrit 29.1, WBC 6.3, platelet is 313. Blood sugar this morning 239. Microbiology, blood culture has been negative. Urine culture has Providencia stuartii. Has echocardiogram done yesterday, shows right ventricular systolic pressure is 25, moderate concentric left ventricular hypertrophy, some diastolic cardiac dysfunction is there. IMPRESSION AND PLAN: Exacerbation of chronic obstructive lung disease, rhinitis, postnasal drip and cough, respiratory failure requiring noninvasive ventilation; since claustrophobic, cannot use BiPAP, encourage her to use nasal mask though. This may be component of hypoventilation syndrome. History of rectal carcinoma requiring surgery, has a colostomy; hypertension, diabetes, has a history of hypertension but most recent echo does not suggest of that. So Pulmonary point of view, encouraged bilevel positive airway pressure use. Keep head at 45 degrees. Intravenous and inhaled bronchodilator. When she is up, may benefit from rehab; once improved, upon discharge, will need attended sleep study. Thank you and we will follow with you. Pamela Ayala MD
[2017-09-03] MEDS: Morphine 4 mg/ml ISec IVP PRN (01:03)
--- NOTE | 2017-09-03 01:15 | PN ---
DATE: 09/02/2017 SUBJECTIVE: This patient was seen and evaluated earlier today. Patient is comfortable. Has mild discomfort on the right side of the abdomen. Colostomy is working. PHYSICAL EXAMINATION VITAL SIGNS: Temperature is 98.5, pulse 75, blood pressure is 168/74. HEENT: Atraumatic, anicteric. NECK: Supple. HEART: S1 and S2 heard. LUNGS: Bilateral air entry present. ABDOMEN: Soft. Colostomy present. The dressing present in the left lower quadrant. EXTREMITIES: Mild edema present bilaterally. NEUROLOGIC: Alert, oriented. Moves all the extremities. LABORATORY DATA: Hemoglobin 9.0, hematocrit 29.1, WBC is 6.3, platelets 313. Chemistry: BUN 37, creatinine 1.5 yesterday. LFTs normal. IMPRESSION: This is a 61-year-old patient with rectal cancer, status post radiation chemo and had low anterior resection, has transverse colostomy and closure of the mucous fistula on the left side. Patient had last admitted with respiratory failure, exacerbation of chronic obstructive pulmonary disease. Clinically, now slowly improving. The patient does have a pulmonary hypertension. The patient is reluctant to use CPAP. The patient's, the last colonoscopy was before the surgery. Patient had a PET scan done in April. The patient has been closely followed by Dr. Faye. Patient is anemic now. We will discuss with an oncologist regarding the follow-up colonoscopic evaluation, in view of these rectal carcinoma and last colonoscopy more than three years and patient is anemic. At the present time, patient is admitted with respiratory failure, slowly improving. The colonoscopy can be done electively, but need further optimization; patient has a pulmonary hypertension, higher risk for the procedure. I had a detailed discussion with the patient. The patient's last ultrasound done was in about 2013, had no stones, common bile duct normal, liver function test is normal. The PET scan done last was also reviewed. Thank you very much for allowing us to participate in the care of the patient. Gita Benitez MD
[2017-09-03] MEDS: Albuterol-Ipratrop 3 mg / 0.5 (3 ml) UD IH SCH ×3 (01:40→13:57)
[2017-09-03] MEDS: Pantoprazole 20 mg EC Tab PO SCH ×2 (05:38→17:51)
[2017-09-03 06:05] VITALS: O2SAT 98
[2017-09-03 07:03] LABS: CALCIUM 9.4 mg/dL (8.4-10.5)
[2017-09-03] MEDS: Metoprolol Succinate 25 mg XL Tab PO SCH (08:24)
[2017-09-03] MEDS: Insulin Lispro 1 UNITS/0.01 ML SC SCH ×3 (08:25→17:51)
[2017-09-03] MEDS: Insulin Reg-MEDIUM-Coverage SC SCH ×3 (08:25→17:51)
[2017-09-03] MEDS ORDERED: MethylPREDNISolone 40 mg Vial IVP SCH (10:00)
--- NOTE | 2017-09-03 10:09 | PN ---
DATE: 09/01/2017 SUBJECTIVE: The patient is clinically feeling better. Less short of breath. Afebrile. No nausea. No vomiting. She is much better than before. PHYSICAL EXAMINATION: VITAL SIGNS: Temperature 97.6, heart rate 75, blood pressure 154/65 . HEAD AND NECK: Normal. CHEST: . ABDOMEN: Soft. Colostomy bag site looks . EXTREMITIES: Mild edema . NEUROLOGIC: Patient is . LABORATORY STUDY: Shows white count of 5.4, hemoglobin 9.2, hematocrit 30, platelets . Chemistry shows sodium 141, potassium 4.9, chloride 97, BUN 37, creatinine 1.5. . IMPRESSION AND PLAN: 1. Acute respiratory distress due to acute congestive heart failure continue Lasix . 2. Insulin-dependent diabetes. Blood sugar . We will repeat . 3. Hypertension, better controlled. Continue . 4. Patient is stable. . Continue current medicines. . Elory Florian MD
[2017-09-03] MEDS: Insulin Detemir 100 units/ml Vial (Levemir) SC SCH ×2 (10:49→17:52)
[2017-09-03] MEDS: Cefepime IV 2 gm in NS 2 GM/100 ML BAG IVPB SCH (10:51)
[2017-09-03] MEDS: Fluticasone Nasal 50 mcg/Spray NS SCH (10:53)
[2017-09-03 11:03] LABS: MEAN CELL VOLUME 85.7 fl (80.0-105.0); MEAN CORPUSCULAR HEMOGLOBIN 26.5 pg (25.0-35.0); MEAN PLATELET VOLUME 11.1 fl (7.0-11.0); RBC 3.77 10^6/uL (3.5-6.1); RED CELL DISTRIBUTION WIDTH 14.5 % (11.5-14.5); WHITE BLOOD COUNT 7.1 10^3/ul (4.5-11.0)
--- NOTE | 2017-09-03 11:55 | RAD ---
HISTORY: COMPARISON: 08/30/2017 TECHNIQUE: Chest PA and lateral FINDINGS: LINES AND TUBES: The right MediPort terminates in the SVC. LUNG AND PLEURA: The lungs are well inflated. There is interval improved aeration in both lungs with residual mild pulmonary venous congestion and mild interstitial pulmonary edema. No focal consolidation. No pleural effusions or pneumothorax. HEART AND MEDIASTINUM: The heart is not enlarged. The hilar and mediastinal contours are within normal limits. SKELETAL STRUCTURES: The bony structures are within normal limits for the patient's age. VISUALIZED UPPER ABDOMEN: Normal. OTHER FINDINGS: None. IMPRESSION: Interval improved aeration in the lungs with residual mild pulmonary venous congestion and interstitial pulmonary edema.
--- NOTE | 2017-09-03 12:12 | RAD ---
PROCEDURE: Radiographs of the Left Shoulder HISTORY: pain COMPARISON: No prior. FINDINGS: BONES: Normal. No fracture. JOINTS: Normal. Glenohumeral and acromioclavicular joints preserved. No osteoarthritis. SOFT TISSUES: Normal. OTHER FINDINGS: None. IMPRESSION: Normal radiographs of the left shoulder.
--- NOTE | 2017-09-03 12:14 | RAD ---
PROCEDURE: Radiographs of the Right Shoulder HISTORY: pain COMPARISON: No prior. FINDINGS: BONES: Normal. No fracture. JOINTS: Normal. Glenohumeral and acromioclavicular joints preserved. No osteoarthritis. SOFT TISSUES: Normal. OTHER FINDINGS: None. IMPRESSION: Normal radiographs of the right shoulder.
--- NOTE | 2017-09-03 14:03 | PQF CHF ---
This form is a permanent part of the medical record Dr. Florian, Patient admitted with CHF, EF 53% on echo. Please specify type and severity of CHF when determined. Clarification of your documentation is requested to better reflect the severity of illness and intensity of treatment of your patient. Indicators present [x] Diagnosis of CHF and/or history of CHF [x] BNP > 200 [x] Imaging Finding of Pulmonary Edema /Pleural Effusions [] Fluid/Volume Overload [] Pitting edema [] Ejection Fraction < 40% (Indicative of Systolic Heart Failure) [x] Ejection Fraction > 40% (Indicative of Diastolic Heart Failure) [] Dyspnea / Orthopenea / Paroxysmal Nocturnal Dyspnea [] Other: lasix IV Location in the medical record that reflects the above clinical findings: [] Treatment Provided: [] PHYSICIAN'S RESPONSE Based on your medical judgment of the clinical indicators outlined above, are you treating this patient for a known or suspected: [xx] Acute CHF [] Systolic [] Diastolic [x] Combined [] Chronic CHF [] Systolic [] Diastolic [] Combined [] Acute on Chronic CHF []Systolic [] Diastolic [] Combined [x] CHF due hypertension [] Acute systolic []Chronic systolic [] Acute/ chronic systolic [x] Other, please indicate: [xcoronary artery disease] [] If Unable to Determine, please check the box, sign and date. Present On Admission (POA) Indicator: [x] Present at the time of admission [] Not present at the time of admission [] Clinically Undetermined In responding to this query, please exercise your independent professional judgment. The fact that a question is asked does not imply that any particular answer is desired or expected. Thank you for your clarification on this documentation. If you have any questions please call:[ ] * Thank you, [ ]Ezequiel Rubio [facility] #[id number] power plant operator apprentice ANT
--- NOTE | 2017-09-03 14:07 | PQF RESP ---
This form is a permanent part of the medical record Dr. Ayala, Your consult and subsequent documentation notes "respiratory failure with hypoxemia and CO2 retention". Please specify if this is acute or chronic in nature. Clarification of your documentation is requested to better reflect the severity of illness and intensity of treatment of your patient. Indicators present [] Use of Home Oxygen [] Respiratory rate > 28 or <8/min (Labored respirations) [] PCO2 > 50 mm Hg or (Hypercapnia) (somnolence) [] PaO2 < 60 mm Hg or Hypoxemia (confusion) [] ABG blood gas pH < 7.35 [] SpO2 < 90% sat on Room Air [] Cyanosis [] Unable to Speak in Full Sentences [] Use of Accessory Muscles / Tripoding [] Wheezing [] Other: [] Location in the medical record that reflects the above clinical findings: [] Treatment Provided: [] PHYSICIAN'S RESPONSE Based on your medical judgment of the clinical indicators outlined above, are you treating this patient for a known or suspected: [] Acute Respiratory Failure (hypoxia or hypercapnia) [] Chronic Respiratory Failure (hypoxia or hypercapnia) [] Acute on Chronic Respiratory Failure (hypoxia or hypercapnia) [] Hypoxemia please specify ACUTE, CHRONIC or ACUTE on CHRONIC [] Other []_ [] If unable to determine, please check the box, sign and date. Present On Admission (POA) Indicator: [] Present at the time of admission [] Not present at the time of admission [] Clinically Undetermined In responding to this query, please exercise your independent professional judgment. The fact that a question is asked does not imply that any particular answer is desired or expected. Thank you for your clarification on this documentation. If you have any questions please call:[ ] * Thank you, [ ]Ezequiel Rubio [facility] #[id number] door builder Chronic Respiratory Failure Description: Respiratory failure is a syndrome in which the respiratory system fails in one or both of its gas exchange functions: oxygenation and carbon dioxide elimination. In theory, respiratory failure is defined as a Pa02 value of <60 mm/Hg or a PaC02 of >50 mm/Hg. However, these values may be affected by renal compensation. Respiratory failure may be acute or chronic. While acute respiratory failure is characterized by life-threatening derangement in arterial blood gases and acid-base balance, the manifestations of chronic respiratory failure are less dramatic and may not be as readily apparent. Classifications: Respiratory failure may be classified as hypoxemic (usually characterized by Pa02 of <60 mm/Hg) or hypercapnic (usually characterized by PaC02 >50 mm/Hg) and either may be acute or chronic. Chronic hypercapnic respiratory failure develops over time and allows for renal compensation and an increase in bicarbonate concentration; therefore the pH is usually only slightly decreased. The distinction between acute and chronic hypoxemic respiratory failure cannot readily be made on the basis of ABGs; the clinical markers of chronic hypoxemia, such as polythycemia or cor pulmonale suggest a long standing disorder (chronic hypoxemic respiratory failure). Clinical Indicators: dyspnea at rest or "chronic" dyspnea, concomitant conditions such as polycythemia or cor pulmonale, requirement for continuous oxygen support, forced expiratory volume in one second (FEV1) of 49 or less, pursed lip breathing, "barrel" chest, hyperinflation by CXR, muscle wasting, malnutrition/obesity, poor exercise capacity, peripheral edema, description as a "blue bloater" (usually associated with chronic, obstructive bronchitis) or "pink puffer" (usually associated with emphysema) Risks: Chronic Hypoxemic Respiratory Failure - COPD, pulmonary fibrosis, asthma , pulmonary arterial hypertension, granulomatous lung diseases, congenital heart disease, bronchiectasis, kyphoscoliosis, obesity; Chronic Hypercapnic Respiratory Failure - COPD, severe asthma, myasthenia gravis, polyneuropathy, polio, head and cervical spine injuries, obesity hypoventilation syndrome. Treatment: supplemental oxygen, bronchodilators, corticosteroids, adequate nutrition, lung transplant References: Am. J. Respir. Crit. Care Med. "Global Strategy for the Diagnosis, Management and Prevention of COPD: GOLD Exectuive Summary," Alfred Mahoney Anzueto - 2007; Proceedings of the [place] [employer] "Mechanisms and Measurements of Dyspnea in COPD," Nehemiah - 2006; WebMD; Respiratory Failure, Abner Strickland MD - 12/2005; John's Principles of Internal Medicine, 17th edition. Acute Respiratory Failure Acute Respiratory Failure indicators include: ~Respirations >28 ~Air hunger ~Use of accessory muscles of respiration ~Inability to speak in full sentences Cyanosis ~Pulse ox <90% RA or <95% on O2 pH <7.35 or >7.45 ~pO2 < 60 mm Hg (or 10mm below COPD patient's baseline) ~pCO2 >50mm Hg (or 10mm above COPD patient's baseline) "Respiratory failure may be assigned as a principal diagnosis when it is the condition established after study to be chiefly responsible for occasioning admission to the hospital. The fact that the respiratory failure was managed without intubation and mechanical ventilation does not preclude its use." [facility], 3rd Qtr., 1988, p. 7 MTDD
[2017-09-03 14:45] VITALS: RESP 18
--- NOTE | 2017-09-03 15:58 | PN ---
DATE: 09/03/2017 CARDIOLOGY FOLLOWUP SUBJECTIVE: The patient is without shortness of breath, without chest pain. PHYSICAL EXAMINATION: VITAL SIGNS: Stable. NECK: Negative JVD. LUNGS: Without rales. HEART: Reveals S1, S2. EXTREMITIES: Without edema. LABORATORY DATA: New echocardiogram is noted. IMPRESSION: 1. Stable angina. 2. Coronary artery disease. 3. Anemia. 4. History of colon cancer. 5. Obesity. 6. Hypertension. Given these findings, the patient will need to have colonoscopy to see the cause of her anemia. I have discussed with the patient and family. At some point, she will need a stress test to evaluate her coronary disease. Raleigh Sepulveda MD
--- NOTE | 2017-09-03 16:43 | CP.PCM.PN ---
Subjective - Date & Time of Evaluation Date of Evaluation: 09/03/17 Time of Evaluation: 08:30 - Subjective Subjective: No fevers, breathing better. Objective - Vital Signs/Intake and Output Vital Signs (last 24 hours): Temp Pulse Resp BP Pulse Ox 97 F L 70 18 162/73 H 98 09/03/17 12:00 09/03/17 14:00 09/03/17 12:00 09/03/17 13:59 09/03/17 06:00 Intake and Output: 09/03/17 09/03/17 06:59 18:59 Intake Total 320 300 Output Total 2000 900 Balance -1680 -600 - Medications Medications: Current Medications Acetaminophen (Tylenol 325mg Tab) 650 mg PO Q6H PRN PRN Reason: Headache Last Admin: 09/03/17 08:53 Dose: 650 mg Albuterol/Ipratropium (Duoneb 3 Mg/0.5 Mg (3 Ml) Ud) 3 ml IH [id number] JR Last Admin: 09/03/17 13:57 Dose: 3 ml Amlodipine Besylate (Norvasc) 10 mg PO DAILY JR Last Admin: 09/03/17 10:50 Dose: 10 mg Apixaban (Eliquis) 5 mg PO BID JR PRN Reason: Protocol Last Admin: 09/03/17 10:50 Dose: 5 mg Clonidine HCl (Catapres) 0.2 mg PO Q6H PRN PRN Reason: BP Systolic > 170 Last Admin: 09/02/17 17:39 Dose: 0.2 mg Doxycycline Hyclate (Doryx) 100 mg PO Q12 JR PRN Reason: Protocol Last Admin: 09/03/17 10:50 Dose: 100 mg Fluticasone Propionate (Flonase) 1 actuation NS DAILY JR Last Admin: 09/03/17 10:53 Dose: 1 actuation Furosemide (Lasix) 40 mg IVP Q12H JR Last Admin: 09/02/17 22:46 Dose: 40 mg Hydralazine HCl (Apresoline) 25 mg PO TID JR Last Admin: 09/03/17 13:59 Dose: 25 mg Cefepime HCl (Maxipime 2gm) 2 gm in 100 mls @ 100 mls/hr IVPB Q12 JR PRN Reason: Protocol Stop: 09/05/17 15:46 Last Admin: 09/03/17 10:51 Dose: 100 mls/hr Insulin Detemir (Levemir) 30 unit SC BID [facility] Last Admin: 09/03/17 10:49 Dose: 30 unit Insulin Human Lispro (Humalog) 5 units SC AC [facility] Last Admin: 09/03/17 12:12 Dose: Not Given Insulin Human Regular (Humulin R Med) 0 units SC ACHS [facility] PRN Reason: Protocol Last Admin: 09/03/17 12:13 Dose: Not Given Isosorbide Mononitrate (Imdur) 60 mg PO DAILY [facility] Last Admin: 09/03/17 10:50 Dose: 60 mg Loratadine (Claritin) 10 mg PO DAILY [facility] Last Admin: 09/03/17 10:50 Dose: 10 mg Losartan Potassium (Cozaar) 50 mg PO DAILY [facility] Last Admin: 09/03/17 10:49 Dose: 50 mg Methylprednisolone (Solu-Medrol) 20 mg IVP DAILY [facility] Last Admin: 09/03/17 10:51 Dose: 20 mg Metoprolol Succinate (Toprol Xl) 75 mg PO BRK [facility] Last Admin: 09/03/17 08:24 Dose: 75 mg Montelukast Sodium (Singulair) 10 mg PO HS [facility] Last Admin: 09/02/17 21:33 Dose: 10 mg Morphine Sulfate (Morphine) 4 mg IVP Q4H PRN PRN Reason: Pain, severe (8-10) Last Admin: 09/03/17 01:03 Dose: 4 mg Pantoprazole Sodium (Protonix Ec Tab) 20 mg PO 0600,1600 [facility] Last Admin: 09/03/17 05:38 Dose: 20 mg - Labs Labs: 09/03/17 10:55 09/03/17 05:00 PT 12.0 SECONDS (9.4-12.5) 08/30/17 18:30 INR 1.05 (0.93-1.08) 08/30/17 18:30 - Constitutional Appears: Chronically Ill - Head Exam Head Exam: NORMAL INSPECTION - Neck Exam Neck Exam: absent: Meningismus - Respiratory Exam Respiratory Exam: Decreased Breath Sounds - Cardiovascular Exam Cardiovascular Exam: +S1, +S2 - GI/Abdominal Exam GI & Abdominal Exam: Soft. absent: Tenderness Assessment and Plan - Assessment and Plan (Free Text) Plan: Assessment Acute exacerbation of COPD asymptomatic bacteriuria history of VRE UTI DM HTN CAD history of rectal cancer morbid obesity with BMI 53 obstructive sleep apnea history of pulmonary embolism Plan on Cefepime and Doxcycline to complete 3-5 days of therapy
[2017-09-03 17:16] VITALS: BP 164/76; PULSE 77; TEMP 98.2
--- NOTE | 2017-09-03 20:56 | CON ---
DATE: 09/03/2017 REASON FOR CONSULTATION: Left shoulder pain. HISTORY OF PRESENT ILLNESS: This is a 61-year-old female, who is admitted for pulmonary edema and respiratory compromised on 08/30, who said she has a complaint of left shoulder pain. Actually today she states the pain is in both her shoulders but worse on the left. She states she has had a history of left shoulder pain in the past. She denies any history of any trauma. She states that the pain is worse depending on how she moves it. She states she also gets some intermittent numbness and tingling down her hands at times. Today she denies any neck pain. She denies any numbness at the moment. She states that in the past she has had a what sounds like a steroid injection in the left shoulder. PHYSICAL EXAMINATION: This is a morbidly obese female, in no apparent distress. She is awake, alert and oriented x3. Her affect is pleasant and appropriate. Evaluation of the left shoulder shows no obvious deformity. Her skin is intact. She has some mild tenderness anteriorly along the anterior aspect of the shoulder. She is able to actively forward flex to about 110 degrees and abduct to about 70 degrees. Difficult to assess internal rotation due to the position of the bed. She is tolerating some passive internal and external rotation of the shoulder without any significant pain. Grossly, she has good strength in resisted abduction and forward flexion with some mild pain. She is grossly neurovascularly intact distally. Evaluation of the right shoulder again shows no obvious swelling, no obvious deformity. Her skin is intact. Again she has active range of motion to approximately 115 to 120 degrees. She can abduct to about 80 degrees. Internal rotation is difficult to assess. She has good strength in resisted abduction and forward flexion with some mild pain. She has a negative Yi sign. Grossly, she is neurovascularly intact. She has palpable distal pulses bilaterally. There are no x-rays available for my review. IMPRESSION: Bilateral shoulder pain. PLANT: At this point, we are going to go ahead and order x-rays of both her shoulders. We will reevaluate once the x-rays are complete. For now, let her do activities as tolerated with bilateral upper extremities. Pain medications as needed. Lino Garcia MD [facility] # [id number]
--- NOTE | 2017-09-03 23:32 | PN ---
DATE: 09/03/2017 PULMONARY PROGRESS NOTE REFERRING PHYSICIAN: Elroy Florian MD. SUBJECTIVE: The patient is lying in the bed, head at 45 degrees. Sister is at bedside. Feels much better. Decreased rhinitis. Decreased cough. No nausea. No vomiting, diarrhea, leg pain, leg swelling. Still does not like to use CPAP/BiPAP. OBJECTIVE: GENERAL: In no acute distress. VITAL SIGNS: Temp is 98, heart rate is 77, respiratory rate is 18, blood pressure 164/76, pulse ox 98% on 4 L nasal cannula. HEENT: Moist mucous membrane. Crowded airway. Mallampati score is 4. NECK: Supple. No JVD. LUNGS: Have a fair airflow with rhonchi. HEART: S1 and S2. ABDOMEN: Soft, nontender. No organomegaly. EXTREMITIES: There is no edema. NEUROLOGICAL: Awake, alert. Follows simple command. LABORATORY DATA: Shows hemoglobin 10.0, hematocrit 32.3, WBC 7.1, platelet is 327. Sodium 139, potassium 4.0, chloride 93, bicarbonate 38, BUN 52, creatinine 1.7, glucose 116, calcium is 9.4. Urine cultures have Providencia stuartii. Blood culture has been negative. Echocardiogram shows LV function. No pulmonary hypertension reported by echo. Chest x-ray done today shows interval improved aeration in the lungs with residual mild pulmonary venous congestion and interstitial pulmonary edema. MEDICATIONS: She is on hydralazine 50 mg 3 times a day, clonidine 0.2 mg q. 6 hours, Claritin 10 mg daily, Cozaar is at 50 mg daily, doxycycline 100 mg twice a day, DuoNeb every 6 hours, Eliquis 5 mg twice a day, Flonase one spray each nostril daily, insulin coverage, Imdur 60 mg daily, Lasix 40 mg daily, Levemir 20 units subcu twice a day, cefepime 2 g IV every 12 hours, morphine 4 mg IV every 4 hours p.r.n., Norvasc 10 mg daily, Protonix is 20 mg twice a day, Singulair 10 mg daily, Solu-Medrol 20 mg IV daily, Toprol-XL 75 mg daily, Tylenol p.r.n. basis. IMPRESSION AND PLAN: Chronic obstructive lung disease, status post respiratory failure requiring noninvasive ventilation, had carbon dioxide retention and hypoxemia. She is claustrophobic. Refused further use of continuous positive airway pressure and bilevel positive airway pressure, morbid obesity. There may be component of hypoventilation syndrome. History of rectal carcinoma requiring surgery and has a colostomy, hypertension, diabetes. Spoke to the patient and sister all the question answer. The patient will need a sleep study. We will do half apnea, half continuous positive airway pressure to qualify and may benefit from nasal continuous positive airway pressure/ bilevel positive airway pressure. Spoke to floor nurse practitioner. The patient will be transferred to subacute for continued care. Start therapy. Out of bed to chair, but fall precaution. Thank you and we will follow with you. Pamela Ayala MD
--- NOTE | 2017-09-03 23:40 | CON ---
DATE: 09/03/2017 REASON FOR CONSULTATION: Acute kidney injury, shortness of breath, NIDDM, obesity. HISTORY OF PRESENTING ILLNESS: Morbidly obese lady with history of NIDDM, hypertension and chronic kidney disease stage II/III was admitted on 08/30/2017 with complaints of shortness of breath, anasarca, respiratory distress. She was found to have pulmonary edema. She was found to have anasarca, total body volume overload. Patient was diuresed with IV Lasix, 40 mg IV every 12 hours. She has been in a negative balance for the last 3 days about 5 liters negative. Her creatinine has risen from 1.2 to 1.7. Consultation is requested for acute kidney injury. PAST MEDICAL AND SURGICAL HISTORY: Morbid obesity, NIDDM, hypertension, history of rectal CA, history of colostomy, hyperlipidemia, chronic back pain, chronic arthritis, recurrent UTI. FAMILY HISTORY: Hypertension and diabetes. SOCIAL HISTORY: No smoking, no alcohol use. No IV drug abuse. ALLERGIES: NO KNOWN DRUG ALLERGIES. MEDICATIONS AT HOME: Included fentanyl patch, clonidine 0.1 mg every 4 p.r.n, Norvasc 10, simvastatin 40 mg, Lyrica 150 t.i.d., Protonix 40, Ditropan, Prilosec, Toprol-XL 75, magnesium oxide, Cozaar 50 mg, Imdur 60 mg; insulin 70/30 of 14 units in the morning, 14 units at night; aspirin and Lipitor. REVIEW OF SYSTEMS: All systems are reviewed, pertinent positives as mentioned in history of presenting illness, rest unremarkable. PHYSICAL EXAMINATION: GENERAL: Obese, elderly lady, lying in bed. VITAL SIGNS: Blood pressure 162/73, heart rate 73, respiratory rate 18, temperature 97. HEENT: Normocephalic, atraumatic, positive pallor. NECK: Supple. No JVD. LUNGS: Bilateral equal air entry, bilaterally equal expansion. No rales appreciated anteriorly. CARDIAC: S1, S2, regular rate and rhythm. No murmur, no rub. ABDOMEN: Obese, distended, soft, nontender, positive colostomy, bowel sounds present. EXTREMITIES: 1+ pitting edema of the lower extremities. INTAKE AND OUTPUT: 320/2000. LABORATORY DATA: WBC 7.1, hemoglobin 10, hematocrit 32, platelets 327. Sodium 139, potassium 4, chloride 93, CO2 of 38, BUN 52, creatinine 1.7, glucose 185, calcium 9.4. Urinalysis light yellow, slightly cloudy, pH 7, specific gravity 1.020, protein 100, blood small, nitrite positive, leukocyte esterase trace. Urine culture, Providencia. Blood cultures, no growth. CURRENT MEDICATIONS: Tylenol, Toprol-XL 75 mg, Solu-Medrol 20 IV daily, Singulair, Protonix, Norvasc 10 mg daily, morphine 4 mg IV push every 4 p.r.n., cefepime 2 g every 12, insulin; Lasix 40 mg IV every 12, on hold, last dose given yesterday; Imdur 60 mg, Apresoline 25 t.i.d., Catapres 0.2 mg every 6 p.r.n., doxycycline 100 mg every 12, losartan 50 mg daily and Eliquis 5 mg b.i.d. ASSESSMENT: 1. Acute kidney injury superimposed on chronic kidney disease stage II/III?. 2. Contraction alkalosis. 3. Prerenal azotemia. 4. Morbid obesity. 5. Svt-kfzrkoj-mvyjiqhix diabetes mellitus. 6. Severe hypertension. 7. Urinary tract infection?. PLAN: 1. Agree with holding Lasix today. 2. Change to 40 mg IV daily. 3. Okay to continue losartan. 4. Avoid nephrotoxins. 5. Severe uncontrolled hypertension; increase hydralazine to 50 t.i.d. Kristine Archibald MD
--- NOTE | 2017-09-05 06:49 | DS ---
HISTORY OF PRESENT ILLNESS: This is a 61-year-old female, came in with congestive heart failure and pneumonia. The patient was admitted to initially ICU, then transferred to Telemetry. She was given IV Lasix, IV meropenem and she did very well. Her vital signs on discharge was temperature 98, discharged to Transitional Care Unit for continuation of IV antibiotics and current medication. PHYSICAL EXAMINATION: VITAL SIGNS: Temperature is 98.2, heart rate 77, blood pressure 164/76, respirations 18, and seems stable. HEAD AND NECK: Normal. No JVD. No thyromegaly. CHEST: Clear bilaterally. CARDIAC: First sound and second sound normal. ABDOMEN: Morbid obese with colostomy bag in the left side. EXTREMITIES: Decreased edema significantly, mild edema. NEUROLOGIC: Normal. The patient is alert, awake, oriented x3. Moves all extremities. The patient is morbidly obese, her BMI is 50.2. HOSPITAL COURSE: The patient is admitted to ICU, Telemetry, IV antibiotics. She had echocardiogram, which shows systolic function is 50%. Chest x-ray initially shows pneumonia, congestive heart failure, IV Lasix was given. The patient improved. She also had a shoulder x-ray, which shows normal x-ray; however, the patient complained of shoulder pain. IMPRESSION: The patient did well. She was given IV meropenem, IV Lasix, insulin for her poorly controlled diabetes, DuoNeb, nebulizer. Blood pressure was poorly controlled, was given hydralazine, Cozaar, Norvasc and Imdur, we increasing the hydralazine gradually. The patient also was given steroids 20 mg IV daily. She seems stable, also she getting Toprol XL 75 mg once a day. She does also have history of coronary artery disease, she had a stent placement, seen by the following consultation while she is in the hospital, Cardiology consults Dr. Raleigh Sepulveda, Pulmonary consult Dr. Ayala and GI consult Dr. Benitez, also she is seen by Dr. Mathew, Infectious Disease consultation. The patient still getting meropenem 2 g IV every 12 and she is still getting doxycycline 100 b.i.d. Continue current medicine. We will discharge the patient to rehab for continuation of IV antibiotics, Lasix. Monitor her electrolytes and follow up her medical conditions, uncontrolled diabetes and uncontrolled hypertension. We will continue current therapy, monitor closely, follow up with other sourcing consultant. DISCHARGE DIAGNOSES: As follow: 1. Congestive heart failure, systolic and diastolic, acute on top of chronic. 2. Hypertension, uncontrolled. 3. Pneumonia, community acquired. 4. Diabetes, insulin dependent, poorly controlled. 5. Chronic back pain and neuropathy, continue pain medicines. 6. Possibly obstructive sleep apnea. Chronic obstructive pulmonary disease. The patient needs to do outpatient sleep study. 7. Morbid obesity. 8. History of rectal cancer with colostomy. PLAN: Continue current therapy. Elroy Florian MD
== END 2017-09-03 19:02 | DRG 291 ==
LOC: ED 17:26 → ERH 20:31 → 2RNO 08-31 00:16
PROVIDERS: ADMIT Internal Medicine; ATTEND Internal Medicine
DX: I13.0 Hypertensive heart and chronic kidney disease with heart failure and stage 1 through stage 4 chronic kidney disease, or unspecified chronic kidney disease (principal); J18.9 Pneumonia, unspecified organism; I50.41 Acute combined systolic (congestive) and diastolic (congestive) heart failure; J96.91 Respiratory failure, unspecified with hypoxia; J44.0 Chronic obstructive pulmonary disease with (acute) lower respiratory infection; J44.1 Chronic obstructive pulmonary disease with (acute) exacerbation; N17.9 Acute kidney failure, unspecified; E87.4 Mixed disorder of acid-base balance; N12 Tubulo-interstitial nephritis, not specified as acute or chronic; Z68.43 Body mass index [BMI] 50.0-59.9, adult; E11.65 Type 2 diabetes mellitus with hyperglycemia; E11.22 Type 2 diabetes mellitus with diabetic chronic kidney disease; G89.29 Other chronic pain; E11.42 Type 2 diabetes mellitus with diabetic polyneuropathy; G47.33 Obstructive sleep apnea (adult) (pediatric); N18.2 Chronic kidney disease, stage 2 (mild); M54.5 Low back pain; E78.00 Pure hypercholesterolemia, unspecified; E66.01 Morbid (severe) obesity due to excess calories; I25.118 Atherosclerotic heart disease of native coronary artery with other forms of angina pectoris; M19.90 Unspecified osteoarthritis, unspecified site; E87.5 Hyperkalemia; I27.20 Pulmonary hypertension, unspecified; D64.9 Anemia, unspecified; J31.0 Chronic rhinitis; R09.82 Postnasal drip; B96.89 Other specified bacterial agents as the cause of diseases classified elsewhere; M25.511 Pain in right shoulder; M25.512 Pain in left shoulder; Z95.5 Presence of coronary angioplasty implant and graft; Z99.81 Dependence on supplemental oxygen; Z79.4 Long term (current) use of insulin; Z85.048 Personal history of other malignant neoplasm of rectum, rectosigmoid junction, and anus; Z93.3 Colostomy status; Z86.718 Personal history of other venous thrombosis and embolism; Z86.711 Personal history of pulmonary embolism; Z87.442 Personal history of urinary calculi

== ENCOUNTER 2017-09-03 18:29 | Inpatient (IN) | payer OTHER ==
[2017-09-03] MEDS: Morphine 4 mg/ml ISec IVP PRN (20:10)
[2017-09-03 20:17] VITALS: BMI 50.4
[2017-09-03] MEDS: Insulin Reg-MEDIUM-Coverage SC SCH (21:14)
--- NOTE | 2017-09-04 00:13 | CP.PCM.PN ---
Subjective - Date & Time of Evaluation Date of Evaluation: 09/04/17 Time of Evaluation: 00:10 - Subjective Subjective: S:Seen at bedside. Requests a sleeping pill. Has no complaints now. Denies chest pain, sob, backpain. Pertinent medical record was reviewed. O: Last Vital Signs 3 Temp 98.4 F 09/03/17 20:04 Pulse 78 09/03/17 20:04 Resp 19 09/03/17 20:04 BP 157/69 H 09/03/17 20:04 Pulse Ox Awake, alert, not in distress. LUNGS:Normal breathing pattern. NEURO: Speech normal. A: Adjustment Insomnia. P:Ambien 5 mg PO x 1. Objective - Vital Signs/Intake and Output Vital Signs (last 24 hours): Temp Pulse Resp BP Pulse Ox 98.4 F 78 19 157/69 H 09/03/17 20:04 09/03/17 20:04 09/03/17 20:04 09/03/17 20:04 - Medications Medications: Current Medications Acetaminophen (Tylenol 325mg Tab) 650 mg PO Q6H PRN; Protocol PRN Reason: Pain, moderate (4-7) Albuterol/Ipratropium (Duoneb 3 Mg/0.5 Mg (3 Ml) Ud) 3 ml IH [id number] JR PRN Reason: Protocol Amlodipine Besylate (Norvasc) 10 mg PO DAILY JR PRN Reason: Protocol Apixaban (Eliquis) 5 mg PO BID JR PRN Reason: Protocol Clonidine HCl (Catapres) 0.2 mg PO Q6H PRN; Protocol PRN Reason: SBP>170 Doxycycline Hyclate (Doryx) 100 mg PO 1000,1800 JR PRN Reason: Protocol Fluticasone Propionate (Flonase) 1 actuation NS DAILY JR PRN Reason: Protocol Furosemide (Lasix) 40 mg IVP 1000,1800 JR PRN Reason: Protocol Hydralazine HCl (Apresoline) 25 mg PO TID JR PRN Reason: Protocol Cefepime HCl (Maxipime 2gm) 2 gm in 100 mls @ 100 mls/hr IVPB 0600,1800 JR PRN Reason: Protocol Stop: 09/09/17 06:01 Insulin Detemir (Levemir) 30 unit SC BID JR PRN Reason: Protocol Insulin Human Lispro (Humalog) 5 units SC AC JR PRN Reason: Protocol Insulin Human Regular (Humulin R Med) 0 units SC ACHS JR PRN Reason: Protocol Last Admin: 09/03/17 21:14 Dose: Not Given Isosorbide Mononitrate (Imdur) 60 mg PO 0600 JR PRN Reason: Protocol Loratadine (Claritin) 10 mg PO DAILY JR PRN Reason: Protocol Losartan Potassium (Cozaar) 50 mg PO DAILY JR PRN Reason: Protocol Methylprednisolone (Solu-Medrol) 20 mg IVP DAILY JR PRN Reason: Protocol Metoprolol Succinate (Toprol Xl) 75 mg PO BRK JR PRN Reason: Protocol Montelukast Sodium (Singulair) 10 mg PO HS JR PRN Reason: Protocol Last Admin: 09/03/17 21:22 Dose: 10 mg Morphine Sulfate (Morphine) 4 mg IVP Q4H PRN; Protocol PRN Reason: Pain, severe (8-10) Last Admin: 09/03/17 20:10 Dose: 4 mg Pantoprazole Sodium (Protonix Ec Tab) 20 mg PO 0600,1600 JR PRN Reason: Protocol
[2017-09-04] MEDS: Morphine 4 mg/ml ISec IVP PRN ×2 (00:32→14:44)
[2017-09-04] MEDS: Albuterol-Ipratrop 3 mg / 0.5 (3 ml) UD IH SCH ×4 (02:05→19:56)
[2017-09-04] MEDS: Cefepime IV 2 gm in NS 2 GM/100 ML BAG IVPB SCH ×2 (06:13→17:26)
[2017-09-04] MEDS: Pantoprazole 20 mg EC Tab PO SCH ×2 (06:14→17:24)
[2017-09-04] MEDS: Insulin Lispro 1 UNITS/0.01 ML SC SCH ×3 (06:32→17:49)
[2017-09-04] MEDS: Insulin Reg-MEDIUM-Coverage SC SCH ×4 (06:33→22:02)
[2017-09-04 07:44] LABS: HEMOGLOBIN 9.5 g/dL (12.0-16.0); MEAN CELL VOLUME 84.6 fl (80.0-105.0); MEAN CORPUSCULAR HEMOGLOBIN 26.1 pg (25.0-35.0); MEAN CORPUSCULAR HGB CONC 30.8 g/dl (31.0-37.0); MEAN PLATELET VOLUME 10.2 fl (7.0-11.0); RBC 3.64 10^6/uL (3.5-6.1); RED CELL DISTRIBUTION WIDTH 14.4 % (11.5-14.5); WHITE BLOOD COUNT 7.8 10^3/ul (4.5-11.0)
[2017-09-04 08:00] LABS: CALCIUM 9.2 mg/dL (8.4-10.5)
[2017-09-04] MEDS: Fluticasone Nasal 50 mcg/Spray NS SCH (10:33)
[2017-09-04] MEDS: Insulin Detemir 100 units/ml Vial (Levemir) SC SCH ×2 (10:34→17:23)
[2017-09-04] MEDS: Olopatadine 0.1% Opht Sol OU SCH (10:35)
[2017-09-04] MEDS: Metoprolol Succinate 25 mg XL Tab PO SCH (10:36)
[2017-09-04] MEDS: MethylPREDNISolone 40 mg Vial IVP SCH (10:36)
--- NOTE | 2017-09-04 12:15 | CP.PCM.CON ---
History of Present Illness - History of Present Illness History of Present Illness: 61 year old female with PMH of COPD, history of VRE UTI, DM, HTN, CAD, history of unresectable rectal cancer S/P chemotherapy and radiation therapy S/P colostomy S/P Port-a-cath placement, morbid obesity with BMI 50, obstructive sleep apnea, history of pulmonary embolism S/P IVC filter placement, history of severe sepsis secondary to left medial thigh abscess, growing Proteus, S/P incision and drainage initially came in to [facility] because of shortness of breath and cough and has been on treatment for COPD exacerbation. She has been doing well and is now transferred to [facility] for continued medical therapy and physical rehab. Infectious Diseases consult is requested to continue her antibiotics for the COPD exacerbation. She is currently comfortable on a chair, no fever or chills, no nausea or vomiting, no headache or dizziness, no chest pain, no abdominal pain, no sore throat, no cough is improving and phlegm is less, no diarrhea, no dysuria. Review of Systems - Review of Systems All systems: reviewed and no additional remarkable complaints except (as per HPI ) Past Patient History - Infectious Disease Hx of Infectious Diseases: None - Tetanus Immunizations Tetanus Immunization: Unknown - Past Social History Smoking Status: Never Smoked - CARDIAC Hx Congestive Heart Failure: Yes Hx Hypercholesterolemia: Yes Hx Hypertension: Yes - NEUROLOGICAL Hx Neurological Disorder: Yes Hx Dizziness: Yes - HEENT Hx Macular Degeneration: No - RENAL Hx Chronic Kidney Disease: Yes Hx Kidney Stones: Yes - ENDOCRINE/METABOLIC Hx Diabetes Mellitus Type 2: Yes - HEMATOLOGICAL/ONCOLOGICAL Hx Blood Transfusions: No Hx Blood Transfusion Reaction: No - INTEGUMENTARY Hx Dermatological Problems: No - MUSCULOSKELETAL/RHEUMATOLOGICAL Hx Falls: Yes (ONE TIME MANY YEARS AGO) - GASTROINTESTINAL Hx Gastrointestinal Disorders: Yes (COLOSTOMY) - GENITOURINARY/GYNECOLOGICAL Hx Genitourinary Disorders: No Hx Reproductive Disorders: No - PSYCHIATRIC Hx Emotional Abuse: No Hx Physical Abuse: No Hx Substance Use: No - SURGICAL HISTORY Hx Appendectomy: Yes - ANESTHESIA Hx Anesthesia: Yes Hx Anesthesia Reactions: No Hx Malignant Hyperthermia: No Meds Allergies/Adverse Reactions: Allergies Allergy/AdvReac Type Severity Reaction Status Date / Time No Known Allergies Allergy Verified 01/10/16 14:34 - Medications Medications: Current Medications Acetaminophen (Tylenol 325mg Tab) 650 mg PO Q6H PRN; Protocol PRN Reason: Pain, moderate (4-7) Albuterol/Ipratropium (Duoneb 3 Mg/0.5 Mg (3 Ml) Ud) 3 ml IH [id number] JR PRN Reason: Protocol Last Admin: 09/04/17 02:05 Dose: Not Given Amlodipine Besylate (Norvasc) 10 mg PO DAILY JR PRN Reason: Protocol Apixaban (Eliquis) 5 mg PO BID JR PRN Reason: Protocol Clonidine HCl (Catapres) 0.2 mg PO Q6H PRN; Protocol PRN Reason: SBP>170 Last Admin: 09/04/17 06:14 Dose: 0.2 mg Doxycycline Hyclate (Doryx) 100 mg PO 1000,1800 JR PRN Reason: Protocol Fluticasone Propionate (Flonase) 1 actuation NS DAILY JR PRN Reason: Protocol Furosemide (Lasix) 40 mg IVP 1000,1800 JR PRN Reason: Protocol Hydralazine HCl (Apresoline) 25 mg PO TID JR PRN Reason: Protocol Cefepime HCl (Maxipime 2gm) 2 gm in 100 mls @ 100 mls/hr IVPB 0600,1800 JR PRN Reason: Protocol Stop: 09/09/17 06:01 Last Admin: 09/04/17 06:13 Dose: 100 mls/hr Insulin Detemir (Levemir) 30 unit SC BID JR PRN Reason: Protocol Insulin Human Lispro (Humalog) 5 units SC AC JR PRN Reason: Protocol Insulin Human Regular (Humulin R Med) 0 units SC ACHS JR PRN Reason: Protocol Last Admin: 09/03/17 21:14 Dose: Not Given Isosorbide Mononitrate (Imdur) 60 mg PO 0600 JR PRN Reason: Protocol Last Admin: 09/04/17 06:14 Dose: 60 mg Loratadine (Claritin) 10 mg PO DAILY JR PRN Reason: Protocol Losartan Potassium (Cozaar) 50 mg PO DAILY JR PRN Reason: Protocol Methylprednisolone (Solu-Medrol) 20 mg IVP DAILY JR PRN Reason: Protocol Metoprolol Succinate (Toprol Xl) 75 mg PO BRK JR PRN Reason: Protocol Montelukast Sodium (Singulair) 10 mg PO HS JR PRN Reason: Protocol Last Admin: 09/03/17 21:22 Dose: 10 mg Morphine Sulfate (Morphine) 4 mg IVP Q4H PRN; Protocol PRN Reason: Pain, severe (8-10) Last Admin: 09/04/17 00:32 Dose: 4 mg Pantoprazole Sodium (Protonix Ec Tab) 20 mg PO 0600,1600 JR PRN Reason: Protocol Last Admin: 09/04/17 06:14 Dose: 20 mg Physical Exam - Constitutional Appears: Non-toxic, Chronically Ill - Head Exam Head Exam: NORMAL INSPECTION - Neck Exam Neck exam: Negative for: Lymphadenopathy, Meningismus - Respiratory Exam Respiratory Exam: Decreased Breath Sounds - Cardiovascular Exam Cardiovascular Exam: +S1, +S2 - GI/Abdominal Exam GI & Abdominal Exam: Soft. absent: Tenderness Results - Vital Signs Recent Vital Signs: Last Vital Signs Temp 98.4 F 09/03/17 20:04 Pulse 68 09/04/17 06:14 Resp 19 09/03/17 20:04 BP 185/80 H 09/04/17 06:14 Pulse Ox - Labs Result Diagrams: 09/04/17 07:30 09/04/17 07:30 Labs: Laboratory Results - last 24 hr 09/03/17 09/04/17 21:03 06:05 POC Glucose (mg/dL) 268 H 120 H Assessment & Plan - Assessment and Plan (Free Text) Plan: Assessment Acute exacerbation of COPD, slowly improving asymptomatic bacteriuria history of VRE UTI history of severe sepsis secondary to left medial thigh abscess, growing Proteus , S/P incision and drainage DM HTN CAD Unresectable rectal cancer S/P chemotherapy and radiation therapy S/P colostomy S/P Port-a-cath placement morbid obesity with BMI 50 obstructive sleep apnea history of pulmonary embolism S/P IVC filter placement Plan on Cefepime and Doxcycline to complete 2-4 more days of therapy and will continue to monitor clinically
--- NOTE | 2017-09-04 16:15 | CON ---
DATE: 09/04/2017 REASON FOR CONSULTATION: Anemia, hypokalemia. HISTORY OF PRESENTING ILLNESS: A 61-year-old lady known to me from recent evaluation on the medical side. The patient was admitted with shortness of breath, was found to have pulmonary edema, anasarca. The patient was aggressively diuresed. She was seen on the medical side for acute kidney injury. Etiology of acute kidney injury was largely prerenal azotemia in the setting of aggressive diuresis. Her creatinine had risen from 1.2 to 1.7. She is now on the Transitional Care Unit for physical therapy. Consultation is requested for potassium of 3.5. Hemoglobin of 9.5. She is currently lying in bed. She is comfortable. She does not appear to have any shortness of breath at present. PAST MEDICAL AND SURGICAL HISTORY: Morbid obesity, NIDDM, hypertension, history of rectal CA, history of colostomy, hyperlipidemia, chronic back pain, chronic arthritis, recurrent UTI, episodes of acute kidney injury. FAMILY HISTORY: Hypertension and diabetes. SOCIAL HISTORY: No smoking, no alcohol use, no IV drug abuse. ALLERGIES: NO KNOWN DRUG ALLERGIES. MEDICATIONS: Included Apresoline 50 t.i.d., Catapres 0.2 every 6 p.r.n., Claritin 10, losartan 50, doxycycline 100 every 12, DuoNeb, Eliquis 5 b.i.d., Flonase, insulin, Imdur 60, Lasix 40 IV every 12, cefepime 2 g, morphine, amlodipine 10, Protonix, Singulair, Solu-Medrol 20 IV daily, Toprol XL 75, Tylenol. ASSESSMENT: 1. Hypokalemia secondary to diuresis. 2. Acute kidney injury superimposed on chronic kidney disease stage 3. 3. Anemia, multifactorial, suspect. 4. Morbid obesity. 5. Status post decompensated congestive heart failure, currently compensated. 6. Chronic pain. PLAN: 1. Potassium 20 mEq p.o. daily. 2. Change Lasix to 40 IV daily. 3. Monitor urine output/weight. 4. Check iron stores. 5. Monitor fingersticks and continue insulin coverage. Thank you for the courtesy of this consultation. We will follow this patient closely with you. Kristine Archibald MD [facility] # [id number]
[2017-09-04 19:04] LABS: IRON 56 ug/dL (45-180)
[2017-09-04 19:14] LABS: % IRON SATURATION 23 % (20-55); TOTAL IRON BINDING CAPACITY 248 ug/dL (265-497)
[2017-09-05] MEDS: Albuterol-Ipratrop 3 mg / 0.5 (3 ml) UD IH SCH ×4 (01:24→19:30)
--- NOTE | 2017-09-05 05:58 | CON ---
DATE: PULMONARY CONSULTATION REFERRING PHYSICIAN: Elroy Florian MD REASON FOR CONSULTATION: May have sleep apnea syndrome, admitted originally with respiratory failure, CO2 retention, chronic lung disease. HISTORY OF PRESENT ILLNESS: This is a 61-year-old female well known to me from acute side of the hospital with morbid obesity, pulmonary hypertension, hypertension, hyperlipidemia, sleep apnea syndrome, coronary artery disease, history of colorectal cancer requiring colostomy, came in with shortness of breath, rhinitis, sputum production, was placed on noninvasive ventilation because of CO2 retention which slowly improved, but she did not like the BiPAP. She was started on antibiotics, steroids, inhaled bronchodilator with good result, presently admitted to [facility] continue care. She has some headache, not very compliant with the CPAP. No hemoptysis, hematemesis, hematuria, or diarrhea reported. PAST MEDICAL HISTORY: As per history of present illness. ALLERGIES: NONE KNOWN. SOCIAL HISTORY: Nonsmoker, nondrinker. FAMILY HISTORY: No significant cardiopulmonary disease reported. MEDICATIONS: She is on hydralazine 50 mg three times a day, clonidine 0.2 mg every 6 hours p.r.n., Claritin 10 mg daily, Cozaar 50 mg daily, doxycycline 100 mg twice a day, DuoNeb every 6 hours, Eliquis 5 mg twice a day, Flonase one spray each nostril daily, insulin coverage, Imdur 60 mg daily, potassium 20 mEq daily, Lasix 40 mg daily, Levemir 30 units subcutaneous twice a day, cefepime 2 g IV every 12 hours, morphine 6 mg every 6 hours p.r.n. for pain, Norvasc 10 mg daily, Protonix 20 mg twice a day, Singulair 10 mg daily, Solu-Medrol 20 mg daily, Toprol XL 75 mg daily, Tylenol p.r.n. basis. REVIEW OF SYSTEMS: Has some headache. No rhinitis. Cough is better. Denies any shortness of breath. No chest pain, no nausea, no vomiting, diarrhea or low back pain. Colostomy working well. No leg pain or leg swelling. PHYSICAL EXAMINATION VITAL SIGNS: Temperature is 98, heart rate 71, respiratory rate is 18, blood pressure 152/72, pulse ox 96% on room air. HEENT: Moist mucous membranes. Crowded airway. Mallampati score is 4. NECK: Supple. No JVD. LUNGS: Has a few scattered rhonchi. HEART: S1 and S2. ABDOMEN: Soft and nontender. No organomegaly. Does have a colostomy bag, working well. EXTREMITIES: There is no edema. NEUROLOGIC: Awake and follows simple commands. LABORATORY DATA: Shows hemoglobin 9.5, hematocrit 30.8, WBC 7.8, platelets 297. Sodium 140, potassium 3.5, chloride 96, bicarbonate 39, BUN 53, creatinine 1.6, glucose 126, calcium 9.2. Iron is 56. Urine culture has Providencia. IMPRESSION AND PLAN: Chronic obstructive lung disease, status post respiratory failure requiring noninvasive ventilation, had CO2 retention and hypoxemia, claustrophobic, not very compliant with the bilevel positive airway pressure. There may be component of hypoventilation syndrome, rectal carcinoma requiring surgery, has a colostomy, morbid obesity, hypertension, diabetes, chronic lung disease. Spoke to the patient and sister at bedside. All the questions answered. Encouraged bilevel positive airway pressure use. Keep head at 45 degrees. IV and inhaled bronchodilator, antibiotics and . Also has urinary tract infection, start therapy. Fall precaution. Thank you and we will follow with you. Pamela Ayala MD
[2017-09-05] MEDS: Pantoprazole 20 mg EC Tab PO SCH ×2 (06:00→17:54)
[2017-09-05] MEDS: Cefepime IV 2 gm in NS 2 GM/100 ML BAG IVPB SCH ×2 (06:01→17:53)
[2017-09-05] MEDS: Insulin Lispro 1 UNITS/0.01 ML SC SCH ×3 (06:35→17:51)
[2017-09-05] MEDS: Insulin Reg-MEDIUM-Coverage SC SCH ×4 (06:35→22:14)
[2017-09-05] MEDS ORDERED: Potassium Chloride 20 mEq ER Tab PO SCH (08:00)
[2017-09-05] MEDS: Metoprolol Succinate 25 mg XL Tab PO SCH (08:01)
[2017-09-05] MEDS: Morphine 4 mg/ml ISec IVP PRN ×3 (08:35→19:40)
--- NOTE | 2017-09-05 09:03 | CP.PCM.PN ---
Subjective - Date & Time of Evaluation Date of Evaluation: 09/05/17 Time of Evaluation: 08:59 - Subjective Subjective: Pt states that her shoulders feel better. Denies any numbness or tingling in her fingers. Reviewed xrays of biltateral shoulders. No obvious fxs or dislocations. No significant degenerative changes. b/l active FF to 110 degrees NVI distally Recommend PT for ROM, strengthening and ADL's f/u as outpatient Objective - Vital Signs/Intake and Output Vital Signs (last 24 hours): Temp Pulse Resp BP Pulse Ox 98 F 84 24 155/80 H 97 09/05/17 06:00 09/05/17 08:01 09/05/17 06:00 09/05/17 08:01 09/05/17 06:00 - Medications Medications: Current Medications Acetaminophen (Tylenol 325mg Tab) 650 mg PO Q6H PRN; Protocol PRN Reason: Pain, moderate (4-7) Last Admin: 09/05/17 04:06 Dose: 650 mg Albuterol/Ipratropium (Duoneb 3 Mg/0.5 Mg (3 Ml) Ud) 3 ml IH [id number] JR PRN Reason: Protocol Last Admin: 09/05/17 07:45 Dose: 3 ml Amlodipine Besylate (Norvasc) 10 mg PO DAILY JR PRN Reason: Protocol Last Admin: 09/04/17 10:35 Dose: Not Given Apixaban (Eliquis) 5 mg PO BID JR PRN Reason: Protocol Last Admin: 09/04/17 17:21 Dose: 5 mg Clonidine HCl (Catapres) 0.2 mg PO Q6H PRN; Protocol PRN Reason: SBP>170 Last Admin: 09/04/17 06:14 Dose: 0.2 mg Doxycycline Hyclate (Doryx) 100 mg PO 1000,1800 JR PRN Reason: Protocol Last Admin: 09/04/17 17:21 Dose: 100 mg Fluticasone Propionate (Flonase) 1 actuation NS DAILY JR PRN Reason: Protocol Last Admin: 09/04/17 10:33 Dose: 1 spr Furosemide (Lasix) 40 mg IVP 0600 JR PRN Reason: Protocol Last Admin: 09/05/17 06:29 Dose: 40 mg Hydralazine HCl (Apresoline) 50 mg PO TID JR Last Admin: 09/04/17 17:20 Dose: 50 mg Cefepime HCl (Maxipime 2gm) 2 gm in 100 mls @ 100 mls/hr IVPB 0600,1800 JR PRN Reason: Protocol Stop: 09/09/17 06:01 Last Admin: 09/05/17 06:01 Dose: 100 mls/hr Insulin Detemir (Levemir) 30 unit SC BID JR PRN Reason: Protocol Last Admin: 09/04/17 17:23 Dose: 30 unit Insulin Human Lispro (Humalog) 5 units SC AC JR PRN Reason: Protocol Last Admin: 09/05/17 06:35 Dose: Not Given Insulin Human Regular (Humulin R Med) 0 units SC ACHS JR PRN Reason: Protocol Last Admin: 09/05/17 06:35 Dose: Not Given Isosorbide Mononitrate (Imdur) 60 mg PO 0600 JR PRN Reason: Protocol Last Admin: 09/05/17 05:59 Dose: 60 mg Loratadine (Claritin) 10 mg PO DAILY JR PRN Reason: Protocol Last Admin: 09/04/17 10:31 Dose: 10 mg Losartan Potassium (Cozaar) 50 mg PO DAILY JR PRN Reason: Protocol Last Admin: 09/04/17 10:32 Dose: 50 mg Methylprednisolone (Solu-Medrol) 20 mg IVP DAILY RJ PRN Reason: Protocol Last Admin: 09/04/17 10:36 Dose: 20 mg Metoprolol Succinate (Toprol Xl) 75 mg PO BRK JR PRN Reason: Protocol Last Admin: 09/05/17 08:01 Dose: 75 mg Montelukast Sodium (Singulair) 10 mg PO HS JR PRN Reason: Protocol Last Admin: 09/04/17 21:06 Dose: 10 mg Morphine Sulfate (Morphine) 6 mg IVP Q6H PRN; Protocol PRN Reason: Pain, severe (8-10) Last Admin: 09/05/17 08:35 Dose: 6 mg Olopatadine HCl (Patanol 0.1% Opht Soln) 0 ml OU DAILY [facility] Last Admin: 09/04/17 10:35 Dose: 1 drop Pantoprazole Sodium (Protonix Ec Tab) 20 mg PO 0600,1600 JR PRN Reason: Protocol Last Admin: 09/05/17 06:00 Dose: 20 mg Potassium Chloride (K-Dur 20 Meq Er Tab) 20 meq PO 0800 [facility] Last Admin: 09/05/17 08:01 Dose: 20 meq - Labs Labs: 09/04/17 07:30 09/04/17 07:30
[2017-09-05] MEDS: Insulin Detemir 100 units/ml Vial (Levemir) SC SCH ×2 (10:57→17:53)
[2017-09-05] MEDS: Olopatadine 0.1% Opht Sol OU SCH (10:58)
[2017-09-05] MEDS: MethylPREDNISolone 40 mg Vial IVP SCH (10:58)
[2017-09-05] MEDS: Fluticasone Nasal 50 mcg/Spray NS SCH (11:00)
--- NOTE | 2017-09-05 16:01 | CP.PCM.PN ---
Subjective - Date & Time of Evaluation Date of Evaluation: 09/05/17 Time of Evaluation: 10:40 - Subjective Subjective: Seen and examined at the bedside earlier today, chart review. Patient occasionally has abdominal discomfort but no acute distress. Denies shortness of breath, chest pain, nausea, vomiting.colostomy is brown stool no bleeding reported. Objective - Vital Signs/Intake and Output Vital Signs (last 24 hours): Temp Pulse Resp BP Pulse Ox 98 F 86 24 168/64 H 97 09/05/17 06:00 09/05/17 10:59 09/05/17 06:00 09/05/17 10:59 09/05/17 06:00 - Medications Medications: Current Medications Acetaminophen (Tylenol 325mg Tab) 650 mg PO Q6H PRN; Protocol PRN Reason: Pain, moderate (4-7) Last Admin: 09/05/17 04:06 Dose: 650 mg Albuterol/Ipratropium (Duoneb 3 Mg/0.5 Mg (3 Ml) Ud) 3 ml IH [id number] JR PRN Reason: Protocol Last Admin: 09/05/17 07:45 Dose: 3 ml Amlodipine Besylate (Norvasc) 10 mg PO DAILY JR PRN Reason: Protocol Last Admin: 09/05/17 10:57 Dose: 10 mg Apixaban (Eliquis) 5 mg PO BID JR PRN Reason: Protocol Last Admin: 09/05/17 11:00 Dose: 5 mg Clonidine HCl (Catapres) 0.2 mg PO Q6H PRN; Protocol PRN Reason: SBP>170 Last Admin: 09/04/17 06:14 Dose: 0.2 mg Doxycycline Hyclate (Doryx) 100 mg PO 1000,1800 JR PRN Reason: Protocol Last Admin: 09/05/17 11:00 Dose: 100 mg Fluticasone Propionate (Flonase) 1 actuation NS DAILY JR PRN Reason: Protocol Last Admin: 09/05/17 11:00 Dose: 1 spr Furosemide (Lasix) 40 mg IVP 0600 JR PRN Reason: Protocol Last Admin: 09/05/17 06:29 Dose: 40 mg Hydralazine HCl (Apresoline) 50 mg PO TID JR Last Admin: 09/05/17 10:59 Dose: 50 mg Cefepime HCl (Maxipime 2gm) 2 gm in 100 mls @ 100 mls/hr IVPB 0600,1800 JR PRN Reason: Protocol Stop: 09/09/17 06:01 Last Admin: 09/05/17 06:01 Dose: 100 mls/hr Insulin Detemir (Levemir) 30 unit SC BID JR PRN Reason: Protocol Last Admin: 09/05/17 10:57 Dose: Not Given Insulin Human Lispro (Humalog) 5 units SC AC JR PRN Reason: Protocol Last Admin: 09/05/17 12:55 Dose: 5 units Insulin Human Regular (Humulin R Med) 0 units SC ACHS JR PRN Reason: Protocol Last Admin: 09/05/17 12:56 Dose: 1 units Isosorbide Mononitrate (Imdur) 60 mg PO 0600 JR PRN Reason: Protocol Last Admin: 09/05/17 05:59 Dose: 60 mg Loratadine (Claritin) 10 mg PO DAILY JR PRN Reason: Protocol Last Admin: 09/05/17 10:59 Dose: 10 mg Losartan Potassium (Cozaar) 50 mg PO DAILY JR PRN Reason: Protocol Last Admin: 09/04/17 10:32 Dose: 50 mg Methylprednisolone (Solu-Medrol) 20 mg IVP DAILY JR PRN Reason: Protocol Last Admin: 09/05/17 10:58 Dose: 20 mg Metoprolol Succinate (Toprol Xl) 75 mg PO BRK JR PRN Reason: Protocol Last Admin: 09/05/17 08:01 Dose: 75 mg Montelukast Sodium (Singulair) 10 mg PO HS JR PRN Reason: Protocol Last Admin: 09/04/17 21:06 Dose: 10 mg Morphine Sulfate (Morphine) 6 mg IVP Q6H PRN; Protocol PRN Reason: Pain, severe (8-10) Last Admin: 09/05/17 08:35 Dose: 6 mg Olopatadine HCl (Patanol 0.1% Opht Soln) 0 ml OU DAILY [facility] Last Admin: 09/05/17 10:58 Dose: 1 drop Pantoprazole Sodium (Protonix Ec Tab) 20 mg PO 0600,1600 JR PRN Reason: Protocol Last Admin: 09/05/17 06:00 Dose: 20 mg Potassium Chloride (Klor-Con 10) 10 meq PO 0800 JR - Labs Labs: 09/04/17 07:30 09/04/17 07:30 - Constitutional Appears: No Acute Distress - Head Exam Head Exam: NORMOCEPHALIC - Eye Exam Eye Exam: Normal appearance. absent: Scleral icterus - ENT Exam ENT Exam: Mucous Membranes Moist - Neck Exam Neck Exam: Normal Inspection - Respiratory Exam Respiratory Exam: NORMAL BREATHING PATTERN. absent: Respiratory Distress - Cardiovascular Exam Cardiovascular Exam: +S1, +S2 - GI/Abdominal Exam GI & Abdominal Exam: Soft, Tenderness (around colostomy site), Normal Bowel Sounds. absent: Guarding, Rebound Additional comments: positive colostomy with brown stool, no blood, mucous fistula no bleeding noted dressing in place. - Extremities Exam Extremities Exam: absent: Calf Tenderness - Neurological Exam Neurological Exam: Alert, Awake, Oriented x3 Assessment and Plan - Assessment and Plan (Free Text) Assessment: Assessment: S/P Respiratory Distress, H/O COPD Abdominal pain Rectal carcinoma s/p chemo radiation w/ anterior resection, transverse colostomy and closure of mucous fistula Pulmonary hypertension Morbid Obesity Anemia H/O PE PLAN: diet as tolerated continue PPI, on Protonix 20 mg BID on IV and oral antibiotics on Solumedrol DVT prophylaxsis on Eliquis monitor H/H and overt GI bleeding will need colonoscopy at some point when patient is optimized can be done electively outpatient unless otherwise indicated. Recent Respiratory failure and h/o pulmonary hypertension. Seen and discussed w/ Dr. Benitez.
--- NOTE | 2017-09-05 17:35 | CP.PCM.CON ---
History of Present Illness - History of Present Illness History of Present Illness: Heme-onc Consult Note, Alfredo Renteria DO, PGY2 IM This is a 61 yo F with PMH of COPD, DM, HTN, CAD, unresectable rectal cancer s/ p chemo/rads tx and colostomy, s/p Port-a-cath placement, morbid obesity with BMI 50, obstructive sleep apnea non-compliant with Bipap, and hx of severe pulmonary embolism on life-long anticoagulation s/p clot lysis and IVC filter placement who originally presented to [facility] for progressively worsening shortness of breath x2-3 weeks. She has been worked up and treated for CHF exacerbation vs pneumonia, and is now in the TCU for reconditioning while continuing treatment. Heme-onc was consulted for lack of appetite. Pt seen and examined at bedside in the TCU. Reports that she does feel hungry, but reports early satiety and nausea when eating. Minimal stool output into her colostomy (bag last changed 2 days prior, 09/03/17, only has one small stool present in it today), but is passing minimal flatus into the bag. Denies emesis , dysuria, hematuria. Does note excessive belching, and increased urinary frequency. Is known to have compliance issues with home meds, and she admits she was not regularly taking her Lasix prior to this episode of shortness of breath. Denies chest pain, current shortness of breath, bilious or bloody emesis, fevers, chills, focal weakness. Admits to sensations of early satiety, abdominal fullness, and constipation. All other ROS in 12-system review negative. PMH: as above PSH: Colostomy, Port-a-cath placement, IVC filter placement Fam Hx: pt uncertain but denies family hx of cardiac disease Soc Hx: , lives alone, denies tobacco/alcohol/illicits/IVDA PMD: Dr. Florian Review of Systems - Review of Systems All systems: reviewed and no additional remarkable complaints except (as per HPI ) Past Patient History - Infectious Disease Hx of Infectious Diseases: None - Tetanus Immunizations Tetanus Immunization: Unknown - Past Social History Smoking Status: Never Smoked - CARDIAC Hx Cardiac Disorders: Yes Hx Congestive Heart Failure: Yes Hx Hypercholesterolemia: Yes Hx Hypertension: Yes - NEUROLOGICAL Hx Neurological Disorder: Yes Hx Dizziness: Yes - HEENT Hx Macular Degeneration: No - RENAL Hx Chronic Kidney Disease: Yes Hx Kidney Stones: Yes - ENDOCRINE/METABOLIC Hx Diabetes Mellitus Type 2: Yes - HEMATOLOGICAL/ONCOLOGICAL Hx Blood Transfusions: No Hx Blood Transfusion Reaction: No - INTEGUMENTARY Hx Dermatological Problems: No - MUSCULOSKELETAL/RHEUMATOLOGICAL Hx Falls: Yes (ONE TIME MANY YEARS AGO) - GASTROINTESTINAL Hx Gastrointestinal Disorders: Yes (COLOSTOMY) - GENITOURINARY/GYNECOLOGICAL Hx Genitourinary Disorders: No Hx Reproductive Disorders: No - PSYCHIATRIC Hx Emotional Abuse: No Hx Physical Abuse: No Hx Substance Use: No - SURGICAL HISTORY Hx Appendectomy: Yes - ANESTHESIA Hx Anesthesia: Yes Hx Anesthesia Reactions: No Hx Malignant Hyperthermia: No Meds Allergies/Adverse Reactions: Allergies Allergy/AdvReac Type Severity Reaction Status Date / Time No Known Allergies Allergy Verified 01/10/16 14:34 - Medications Medications: Current Medications Acetaminophen (Tylenol 325mg Tab) 650 mg PO Q6H PRN; Protocol PRN Reason: Pain, moderate (4-7) Last Admin: 09/05/17 04:06 Dose: 650 mg Albuterol/Ipratropium (Duoneb 3 Mg/0.5 Mg (3 Ml) Ud) 3 ml IH [id number] JR PRN Reason: Protocol Last Admin: 09/05/17 13:25 Dose: 3 ml Amlodipine Besylate (Norvasc) 10 mg PO DAILY JR PRN Reason: Protocol Last Admin: 09/05/17 10:57 Dose: 10 mg Apixaban (Eliquis) 5 mg PO BID JR PRN Reason: Protocol Last Admin: 09/05/17 11:00 Dose: 5 mg Clonidine HCl (Catapres) 0.2 mg PO Q6H PRN; Protocol PRN Reason: SBP>170 Last Admin: 09/04/17 06:14 Dose: 0.2 mg Doxycycline Hyclate (Doryx) 100 mg PO 1000,1800 JR PRN Reason: Protocol Last Admin: 09/05/17 11:00 Dose: 100 mg Fluticasone Propionate (Flonase) 1 actuation NS DAILY JR PRN Reason: Protocol Last Admin: 09/05/17 11:00 Dose: 1 spr Furosemide (Lasix) 40 mg IVP 0600 JR PRN Reason: Protocol Last Admin: 09/05/17 06:29 Dose: 40 mg Hydralazine HCl (Apresoline) 50 mg PO TID JR Last Admin: 09/05/17 10:59 Dose: 50 mg Cefepime HCl (Maxipime 2gm) 2 gm in 100 mls @ 100 mls/hr IVPB 0600,1800 JR PRN Reason: Protocol Stop: 09/09/17 06:01 Last Admin: 09/05/17 06:01 Dose: 100 mls/hr Insulin Detemir (Levemir) 30 unit SC BID JR PRN Reason: Protocol Last Admin: 09/05/17 10:57 Dose: Not Given Insulin Human Lispro (Humalog) 5 units SC AC JR PRN Reason: Protocol Last Admin: 09/05/17 12:55 Dose: 5 units Insulin Human Regular (Humulin R Med) 0 units SC ACHS JR PRN Reason: Protocol Last Admin: 09/05/17 12:56 Dose: 1 units Isosorbide Mononitrate (Imdur) 60 mg PO 0600 JR PRN Reason: Protocol Last Admin: 09/05/17 05:59 Dose: 60 mg Losartan Potassium (Cozaar) 50 mg PO DAILY JR PRN Reason: Protocol Last Admin: 09/04/17 10:32 Dose: 50 mg Methylprednisolone (Solu-Medrol) 20 mg IVP DAILY JR PRN Reason: Protocol Last Admin: 09/05/17 10:58 Dose: 20 mg Metoprolol Succinate (Toprol Xl) 75 mg PO BRK JR PRN Reason: Protocol Last Admin: 09/05/17 08:01 Dose: 75 mg Montelukast Sodium (Singulair) 10 mg PO HS JR PRN Reason: Protocol Last Admin: 09/04/17 21:06 Dose: 10 mg Morphine Sulfate (Morphine) 6 mg IVP Q6H PRN; Protocol PRN Reason: Pain, severe (8-10) Last Admin: 09/05/17 14:06 Dose: 6 mg Olopatadine HCl (Patanol 0.1% Opht Soln) 0 ml OU DAILY JR Last Admin: 09/05/17 10:58 Dose: 1 drop Pantoprazole Sodium (Protonix Ec Tab) 20 mg PO 0600,1600 JR PRN Reason: Protocol Last Admin: 09/05/17 06:00 Dose: 20 mg Potassium Chloride (Klor-Con 10) 10 meq PO 0800 [facility] Physical Exam - Constitutional Appears: Non-toxic, No Acute Distress - Head Exam Head Exam: ATRAUMATIC, NORMAL INSPECTION, NORMOCEPHALIC - Eye Exam Eye Exam: EOMI, Normal appearance. absent: Conjunctival injection, Scleral icterus Pupil Exam: absent: Irregular, Unequal - ENT Exam ENT Exam: Mucous Membranes Moist - Neck Exam Neck exam: Negative for: Lymphadenopathy, Thyromegaly - Respiratory Exam Respiratory Exam: Decreased Breath Sounds (mildly decreased breath sounds in all jessica, likely 2/2 body habitus), Clear to Auscultation Bilateral, NORMAL BREATHING PATTERN. absent: Accessory Muscle Use, Chest Wall Tenderness, Prolonged Expiratory Phase, Rales, Rhonchi, Wheezes, Respiratory Distress - Cardiovascular Exam Cardiovascular Exam: REGULAR RHYTHM, RRR, +S1, +S2. absent: Bradycardia, Tachycardia, Irregular Rhythm, JVD, +S4 - GI/Abdominal Exam GI & Abdominal Exam: Diminished Bowel Sounds, Soft. absent: Distended ( morbidly obese but not distended), Firm, Guarding, Hyperactive Bowel Sounds, Hypoactive Bowel Sounds, Normal Bowel Sounds, Rigid, Tenderness Additional comments: Colostomy present, 1 small solid stool present in bag (last changed 2 days prior ) - Extremities Exam Extremities exam: Negative for: calf tenderness, pedal edema, tenderness Additional comments: some stretched/flaccid skin along bilateral LE (reported Anasarca on admission, now resolved) - Neurological Exam Neurological exam: Alert, Oriented x3 - Psychiatric Exam Psychiatric exam: Normal Affect, Normal Mood - Skin Skin Exam: Dry, Intact, Normal Color, Warm Results - Vital Signs Recent Vital Signs: Last Vital Signs Temp 98 F 09/05/17 06:00 Pulse 86 09/05/17 10:59 Resp 24 09/05/17 06:00 BP 168/64 H 09/05/17 10:59 Pulse Ox 97 09/05/17 06:00 - Labs Result Diagrams: 09/04/17 07:30 09/04/17 07:30 Labs: Laboratory Results - last 24 hr 09/04/17 09/04/17 09/04/17 07:30 07:30 21:50 POC Glucose (mg/dL) 259 H Iron 56 TIBC 248 L % Saturation 23 Ferritin 111.0 09/05/17 09/05/17 05:57 16:42 POC Glucose (mg/dL) 141 H 174 H Iron TIBC % Saturation Ferritin Assessment & Plan - Assessment and Plan (Free Text) Assessment: This is a 61 yo F with PMH of COPD, DM, HTN, CAD, unresectable rectal cancer s/ p chemo/rads tx and colostomy, s/p Port-a-cath placement, morbid obesity with BMI 50, obstructive sleep apnea non-compliant with Bipap, and hx of severe pulmonary embolism on life-long anticoagulation s/p clot lysis and IVC filter placement who originally presented to [facility] for progressively worsening shortness of breath x2-3 weeks. She has been worked up and treated for CHF exacerbation vs pneumonia, and is now in the TCU for reconditioning while continuing treatment. Heme-onc was consulted for lack of appetite. Plan: COPD DM HTN CAD unresectable rectal cancer s/p chemo/rads tx and colostomy s/p Port-a-cath placement morbid obesity with BMI 50 obstructive sleep apnea non-compliant with Bipap hx of severe pulmonary embolism on life-long anticoagulation s/p clot lysis and IVC filter placement CHF exacerbation vs pneumonia, severe sepsis - improved -Given hx of medication compliance morbid obesity, likely DM remains poorly controlled (last A1c obtained 12/02/13, was 12.3), high risk for gastroparesis -Denies B-symptoms, including uncontrolled/unintentional weight loss (has lost weight since admission, 2/2 diuresis in setting of anasarca/chf exacerbation), night sweats, etc; less likely lack of appetite is oncologic in nature -minimal colostomy output, decreased bowel sounds, early satiety, and excessive belching consistent with gastroparesis, yaneth in setting of (likely) poorly controlled DM -May have lack of appetite 2/2 recovery from recent severe disease -GI following, might consider Reglan for suspected gastroparesis but will defer to GI for this -consider new A1c Patient reviewed and discussed with attending, Dr. Faye
--- NOTE | 2017-09-05 18:28 | PN ---
DATE: 09/05/2017 PULMONARY PROGRESS NOTE REFERRING PHYSICIAN: lEroy Florian MD. SUBJECTIVE: She is lying in the bed, tolerated BiPAP about 5 to 6 hours, feels tired. Cough is better. No sputum production. No nausea. No vomiting. No diarrhea. No leg pain or leg swelling. PHYSICAL EXAMINATION: GENERAL: In no acute distress. VITAL SIGNS: Temperature is 98, heart rate is 84, respiratory rate is 24, blood pressure is 168/64, pulse of 97% nasal cannula. HEENT: Moist mucous membrane. Crowded airway. NECK: Supple. No JVD. LUNGS: Have a fair airflow with a few rhonchi. HEART: S1 and S2. ABDOMEN: Soft, nontender, nondistended. Colostomy bag working well. EXTREMITIES: There is no edema. NEUROLOGIC: Awake and follows simple command. MEDICATIONS: She is on hydralazine 50 mg three times a day, clonidine 0.2 mg every 6 hours p.r.n., Claritin 10 mg daily, Cozaar 50 mg daily, doxycycline 100 mg twice a day, DuoNeb every 6 hours, Eliquis 5 mg twice a day, Flonase one spray each nostril daily, insulin coverage, Imdur 60 mg daily, potassium 10 mEq daily, Lasix 40 mg daily, Levemir 30 units subcu b.i.d., cefepime 2 g IV twice a day, morphine 6 mg every 6 hours p.r.n., Norvasc 10 mg daily, Patanol ophthalmic solution, Protonix 20 mg twice a day, Singulair 10 mg at bedtime, Solu-Medrol 20 mg daily, Toprol-XL 75 mg daily, and Tylenol p.r.n. basis given. LABORATORY DATA: Showed blood sugar this morning 141. IMPRESSION AND PLAN: Chronic obstructive lung disease, status post respiratory failure requiring noninvasive ventilation, had a CO2 retention and hypoxemia, claustrophobia. Noncompliant with CPAP/BiPAP last night, she surprised me using CPAP almost 5 hour or so. There may be a component of hypoventilation syndrome. Rectal carcinoma requiring surgery, has a colostomy, morbid obesity, diabetes, chronic lung disease. Pulmonary point of view, she is doing well. Continue IV steroids, inhaled bronchodilator, discontinue Claritin for now. Aspiration precaution. Continue CPAP use. Thank you and we will follow with you. Pamela Ayala MD [facility] # [id number]
--- NOTE | 2017-09-05 19:44 | PN ---
DATE: 09/05/2017 SUBJECTIVE: The patient is seen lying in bed. She is awake, she is alert. She reports less shortness of breath today. She denies any chest tightness. PHYSICAL EXAMINATION: GENERAL: Morbidly obese elderly lady lying in bed. VITAL SIGNS: Blood pressure 155/71, heart rate 87, respiratory rate 18, temperature 98.2. HEENT: Normocephalic, atraumatic, positive pallor. NECK: Supple, no JVD. LUNGS: Bilateral equal air entry, bilateral equal expansion, no rales. CARDIAC: S1 and S2, regular rate and rhythm, no murmur, no rub. ABDOMEN: Obese, distended, soft, nontender, bowel sounds present. Positive colostomy. EXTREMITIES: Trace lower extremity edema. INTAKE AND OUTPUT: Not charted. LABORATORY DATA: WBC 7.8, hemoglobin 9.5, hematocrit 30.8, platelets 297. No chemistry available except for iron saturation 23, iron 56, TIBC 248. ASSESSMENT: 1. Acute kidney injury superimposed on chronic kidney disease stage II/III. 2. Prerenal azotemia. 3. Status post pulmonary edema. 4. Morbid obesity. 5. Sleep apnea. 6. Non-insulin diabetes mellitus. 7. Hypertension. 8. Anemia. 9. History of colostomy, rectal cancer. PLAN: 1. Okay to continue Lasix 40 mg IV daily. 2. Continue antibiotics. 3. Fingerstick monitoring and insulin coverage. 4. Continue current antihypertensives. 5. Avoid nephrotoxins. Kristine Archibald MD
[2017-09-06] MEDS: Albuterol-Ipratrop 3 mg / 0.5 (3 ml) UD IH SCH ×4 (00:15→19:29)
[2017-09-06] MEDS: Cefepime IV 2 gm in NS 2 GM/100 ML BAG IVPB SCH ×2 (05:34→17:43)
[2017-09-06] MEDS: Pantoprazole 20 mg EC Tab PO SCH ×2 (05:36→17:38)
--- NOTE | 2017-09-06 06:05 | HP ---
REASON FOR ADMISSION: The patient was admitted to Transitional Care Unit for continuation of IV antibiotics, IV Lasix for her underlying multiple medical problems including but not limited to congestive heart failure, pneumonia and uncontrolled diabetes and hypertension. HISTORY OF PRESENT ILLNESS: As above, the patient was admitted to TCU for continuation of IV antibiotic, IV Lasix, monitoring her clinical conditions, pain management, insulin-dependent diabetes management, and same time the patient does have generalized weakness, gait disorder. We will continue physical therapy. The patient denied any fever, any nausea or vomiting at this time, and she will be monitored clinically on daily basis. PAST MEDICAL HISTORY: 1. As mentioned above, she does have a history of coronary artery disease with stent placement . 2. Morbid obesity with possible underlying pulmonary hypertension. She does have a history in the past of pulmonary embolism, DVT. She has a history of hypertension uncontrolled; insulin-dependent diabetes, poorly controlled; morbid obesity with possible obstructive sleep apnea. 3. Hypercholesterolemia. 4. Chronic back pain, chronic sciatica. 5. Colorectal cancer with surgical and radiation chemotherapy done. The patient has colostomy more than five years ago. REVIEW OF SYSTEMS: As in the present illness. MEDICATIONS: The patient takes multiple medications, which include hydralazine 50 mg t.i.d., Catapres 0.2 mg every 6 hours p.r.n., Cozaar 50 mg p.o. daily, DuoNeb four times daily, Eliquis 5 mg b.i.d., Flonase, Humalog 5 units before meals, Imdur 60 mg once a day, K-Dur 10 mEq once a day, Lasix 40 once a day, Levemir 30 units b.i.d., meropenem 2 gm IV b.i.d., morphine 6 mg IV every 6 hours p.r.n., Norvasc 10 mg once a day, Patanol, Protonix 20 mg twice a day, Singular 10 mg, Solu-Medrol 20 mg once a day, Toprol-XL 75 mg once a day, Tylenol, and Zofran. ALLERGIES: NO KNOWN ALLERGY. SOCIAL HISTORY: She lives by herself in same family house where son lives. No smoking. No drinking. PHYSICAL EXAMINATION: VITAL SIGNS: On 09/04/2017, the patient had temperature 98.1, heart rate 71, blood pressure 152/72, respirations 18, saturations 96% on room air. HEAD AND NECK: Normal. No JVD. No thyromegaly. CHEST: Clear. Diminished breath sounds. CARDIAC: First sound and second sound normal. ABDOMEN: Morbid obesity with colostomy bag on the left side. Mild tender. EXTREMITIES: Mild edema, right more than left. Pulse is intact bilaterally, good pulse. NEUROLOGIC: Normal. The patient is alert, awake, oriented. Moves all extremities. LABORATORY STUDIES: She had white count 7.8, hemoglobin 9.5, hematocrit 30.8, platelets 297. Chemistry noted for sodium 140, potassium 3.5, chloride 96, bicarb 39, BUN 53, creatinine 1.6, blood sugar 126, calcium 9.2, and ferritin 111. IMPRESSION AND PLAN: 1. Community acquired pneumonia, congestive heart failure. Continue IV Lasix. Continue IV meropenem 2 gm IV every 12 hours. Continue inhaled bronchodilator. 2. Respiratory distress due to multifactorial, congestive heart failure, pneumonia, chronic obstructive pulmonary disease, obstructive sleep apnea, morbid obesity. Continue inhaled bronchodilators every 8 hours and intravenous Lasix and oxygen. 3. Insulin-dependent diabetes. Insulin has been adjusted. Seems doing better now in 100-200 range. Observed the patient has poor appetite. 4. Hypertension. Continue current medication. We will increase the medication to 50 mg t.i.d. of hydralazine, and we will monitor the blood pressure plus continue Norvasc, Cozaar, Imdur. 5. Anemia, chronic, stable. 6. Hypertension, coronary artery disease, hypercholesterolemia, morbid obesity. Continue current medicines. Continue gastrointestinal and deep venous thrombosis prophylaxis. Continue Eliquis for her history of deep venous thrombosis, pulmonary embolism, and hypercoagulable states. 7. Colostomy. History of colorectal cancer. We will consider Oncology consult for further evaluations. 8. Renal insufficiency, acute, worsening, probably due to diuretics. We will monitor. We will follow up with Nephrology consult. Elroy Florian MD
--- NOTE | 2017-09-06 06:07 | PN ---
DATE: 09/05/2017 SUBJECTIVE: The patient today, she is comfortable. No respiratory distress. Her breathing is better. She feel weak, could not do physical therapy. Yesterday she gets so tired. Patient also has very poor appetite noted. Denied any chest pain, any fever or any chills. PHYSICAL EXAMINATION: VITAL SIGNS: Temperature 98, heart rate 84, blood pressure 155/80, respirations 24, saturation 97% on room air. HEAD AND NECK: Normal. No JVD. No thyromegaly. CHEST: Clear. Good air entry. CARDIAC: First sound and second sound normal. Systolic ejection murmur in aortic area. ABDOMEN: Obese, nontender. EXTREMITIES: Mild edema bilaterally, right more than left. NEUROLOGIC: Normal except generalized weakness. LABORATORY DATA: Noted for blood sugar in the range of 100 to 200s. IMPRESSION AND PLAN: 1. Community-acquired pneumonia, congestive heart failure. Continue intravenous Lasix. Continue meropenem intravenously 2 g every 12. 2. Acute renal insufficiency, multifactorial, probably diuresis related. We will monitor with the Nephrology. 3. Insulin-dependent diabetes. Continue insulin regimen and monitor blood sugar. We will not increase insulin because of poor appetite. We will monitor her case clinically. 4. Poor p.o. intake. We will get Dr. Faye to follow up to elevate for possible recurrence of retention. 5. Chronic anemia, iron deficiency. Dr. Benitez seeing the patient. We will monitor clinically. 6. Chronic obstructive pulmonary disease, possible obstructive sleep apnea, morbid obesity. Continue intravenous steroids. Continue inhaled bronchodilators. 7. Hypertension, hypercholesterolemia. Continue current medicine. Blood pressure seems responding better. Plan to continue current therapy. 8. Patient also have coronary artery disease , history of deep venous thrombosis, pulmonary embolism. We will continue Eliquis. Continue metoprolol. Elroy Florian MD
[2017-09-06] MEDS: Insulin Lispro 1 UNITS/0.01 ML SC SCH ×3 (06:45→17:38)
[2017-09-06] MEDS: Insulin Reg-MEDIUM-Coverage SC SCH ×4 (06:46→22:05)
[2017-09-06] MEDS: Potassium Chloride 10 mEq ER Tab PO SCH (08:25)
[2017-09-06] MEDS: Metoprolol Succinate 25 mg XL Tab PO SCH (08:26)
[2017-09-06] MEDS: MethylPREDNISolone 40 mg Vial IVP SCH (10:24)
[2017-09-06] MEDS: Olopatadine 0.1% Opht Sol OU SCH (10:24)
[2017-09-06] MEDS: Insulin Detemir 100 units/ml Vial (Levemir) SC SCH ×2 (10:27→17:42)
[2017-09-06] MEDS: Fluticasone Nasal 50 mcg/Spray NS SCH (10:28)
--- NOTE | 2017-09-06 11:12 | CP.PCM.PN ---
Subjective - Date & Time of Evaluation Date of Evaluation: 09/06/17 Time of Evaluation: 11:00 - Subjective Subjective: Comfortable, no fevers, not in distress, breathing better, cough is much improved. Objective - Vital Signs/Intake and Output Vital Signs (last 24 hours): Temp Pulse Resp BP Pulse Ox 98 F 88 17 170/67 H 92 L 09/06/17 06:00 09/06/17 08:26 09/06/17 06:00 09/06/17 08:26 09/06/17 06:00 - Medications Medications: Current Medications Acetaminophen (Tylenol 325mg Tab) 650 mg PO Q6H PRN; Protocol PRN Reason: Pain, moderate (4-7) Last Admin: 09/05/17 04:06 Dose: 650 mg Albuterol/Ipratropium (Duoneb 3 Mg/0.5 Mg (3 Ml) Ud) 3 ml IH [id number] JR PRN Reason: Protocol Last Admin: 09/06/17 07:14 Dose: 3 ml Amlodipine Besylate (Norvasc) 10 mg PO DAILY JR PRN Reason: Protocol Last Admin: 09/05/17 10:57 Dose: 10 mg Apixaban (Eliquis) 5 mg PO BID JR PRN Reason: Protocol Last Admin: 09/05/17 17:50 Dose: 5 mg Clonidine HCl (Catapres) 0.2 mg PO Q6H PRN; Protocol PRN Reason: SBP>170 Last Admin: 09/04/17 06:14 Dose: 0.2 mg Doxycycline Hyclate (Doryx) 100 mg PO 1000,1800 JR PRN Reason: Protocol Last Admin: 09/05/17 17:50 Dose: 100 mg Fluticasone Propionate (Flonase) 1 actuation NS DAILY JR PRN Reason: Protocol Last Admin: 09/05/17 11:00 Dose: 1 spr Furosemide (Lasix) 40 mg IVP 0600 JR PRN Reason: Protocol Last Admin: 09/06/17 05:37 Dose: 40 mg Hydralazine HCl (Apresoline) 50 mg PO TID JR Last Admin: 09/05/17 17:48 Dose: 50 mg Hydromorphone HCl (Dilaudid) 8 mg PO BID PRN PRN Reason: Pain, moderate (4-7) Last Admin: 09/06/17 03:16 Dose: 8 mg Cefepime HCl (Maxipime 2gm) 2 gm in 100 mls @ 100 mls/hr IVPB 0600,1800 JR PRN Reason: Protocol Stop: 09/09/17 06:01 Last Admin: 09/06/17 05:34 Dose: 100 mls/hr Insulin Detemir (Levemir) 30 unit SC BID JR PRN Reason: Protocol Last Admin: 09/05/17 17:53 Dose: 30 unit Insulin Human Lispro (Humalog) 5 units SC AC JR PRN Reason: Protocol Last Admin: 09/06/17 06:45 Dose: 5 units Insulin Human Regular (Humulin R Med) 0 units SC ACHS JR PRN Reason: Protocol Last Admin: 09/06/17 06:46 Dose: 3 units Isosorbide Mononitrate (Imdur) 60 mg PO 0600 JR PRN Reason: Protocol Last Admin: 09/06/17 05:19 Dose: 60 mg Losartan Potassium (Cozaar) 50 mg PO DAILY JR PRN Reason: Protocol Last Admin: 09/05/17 10:49 Dose: Not Given Methylprednisolone (Solu-Medrol) 20 mg IVP DAILY [facility] PRN Reason: Protocol Last Admin: 09/05/17 10:58 Dose: 20 mg Metoprolol Succinate (Toprol Xl) 75 mg PO BRK JR PRN Reason: Protocol Last Admin: 09/06/17 08:26 Dose: 75 mg Montelukast Sodium (Singulair) 10 mg PO HS JR PRN Reason: Protocol Last Admin: 09/05/17 21:19 Dose: 10 mg Morphine Sulfate (Morphine) 6 mg IVP Q6H PRN; Protocol PRN Reason: Pain, severe (8-10) Last Admin: 09/05/17 19:40 Dose: 6 mg Olopatadine HCl (Patanol 0.1% Opht Soln) 0 ml OU DAILY [facility] Last Admin: 09/05/17 10:58 Dose: 1 drop Ondansetron HCl (Zofran Inj) 4 mg IVP Q4H PRN PRN Reason: Nausea/Vomiting Pantoprazole Sodium (Protonix Ec Tab) 20 mg PO 0600,1600 [facility] PRN Reason: Protocol Last Admin: 09/06/17 05:36 Dose: 20 mg Potassium Chloride (Klor-Con 10) 10 meq PO 0800 [facility] Last Admin: 09/06/17 08:25 Dose: 10 meq - Labs Labs: 09/04/17 07:30 09/04/17 07:30 - Constitutional Appears: Non-toxic - Head Exam Head Exam: NORMAL INSPECTION - ENT Exam ENT Exam: Mucous Membranes Moist - Neck Exam Neck Exam: absent: Meningismus - Respiratory Exam Respiratory Exam: Decreased Breath Sounds - Cardiovascular Exam Cardiovascular Exam: +S1, +S2 - GI/Abdominal Exam GI & Abdominal Exam: Soft. absent: Tenderness Assessment and Plan - Assessment and Plan (Free Text) Plan: Assessment Acute exacerbation of COPD, clinically improving asymptomatic bacteriuria history of VRE UTI history of severe sepsis secondary to left medial thigh abscess, growing Proteus , S/P incision and drainage DM HTN CAD Unresectable rectal cancer S/P chemotherapy and radiation therapy S/P colostomy S/P Port-a-cath placement morbid obesity with BMI 50 obstructive sleep apnea history of pulmonary embolism S/P IVC filter placement Plan on Cefepime and Doxcycline to complete another day and will d/c after today will continue to monitor clinically
[2017-09-06] MEDS: Morphine 4 mg/ml ISec IVP PRN (13:13)
--- NOTE | 2017-09-06 13:49 | CP.PCM.PN ---
Subjective - Date & Time of Evaluation Date of Evaluation: 09/06/17 Time of Evaluation: 09:30 - Subjective Subjective: Heme-onc Progress Note, Alfredo Renteria DO, PGY2 IM This is a 61 yo F with PMH of COPD, DM, HTN, CAD, unresectable rectal cancer s/ p chemo/rads tx and colostomy, s/p Port-a-cath placement, morbid obesity with BMI 50, obstructive sleep apnea non-compliant with Bipap, and hx of severe pulmonary embolism on life-long anticoagulation s/p clot lysis and IVC filter placement who originally presented to [facility] [place] for progressively worsening shortness of breath x2-3 weeks. She has been worked up and treated for CHF exacerbation vs pneumonia, and is now in the TCU for reconditioning while continuing treatment. Heme-onc was consulted for lack of appetite. Pt seen and examined at bedside in the TCU. Reports multiple episodes of yellow -green emesis this AM, unable to tolerate PO since overnight. Denies hematemesis. Denies chest pain, shortness of breath, dizziness, room-spinning. Colostomy bag now has 2nd small stool present, minimal gas, minimal bowel sounds on abd exam. Objective - Vital Signs/Intake and Output Vital Signs (last 24 hours): Temp Pulse Resp BP Pulse Ox 98 F 84 17 164/66 H 92 L 09/06/17 06:00 09/06/17 10:23 09/06/17 06:00 09/06/17 10:23 09/06/17 06:00 - Medications Medications: Current Medications Acetaminophen (Tylenol 325mg Tab) 650 mg PO Q6H PRN; Protocol PRN Reason: Pain, moderate (4-7) Last Admin: 09/05/17 04:06 Dose: 650 mg Albuterol/Ipratropium (Duoneb 3 Mg/0.5 Mg (3 Ml) Ud) 3 ml IH [id number] JR PRN Reason: Protocol Last Admin: 09/06/17 13:27 Dose: Not Given Amlodipine Besylate (Norvasc) 10 mg PO DAILY JR PRN Reason: Protocol Last Admin: 09/06/17 10:23 Dose: 10 mg Apixaban (Eliquis) 5 mg PO BID JR PRN Reason: Protocol Last Admin: 09/06/17 10:23 Dose: 5 mg Clonidine HCl (Catapres) 0.2 mg PO Q6H PRN; Protocol PRN Reason: SBP>170 Last Admin: 09/04/17 06:14 Dose: 0.2 mg Doxycycline Hyclate (Doryx) 100 mg PO 1000,1800 JR PRN Reason: Protocol Last Admin: 09/06/17 10:23 Dose: 100 mg Fluticasone Propionate (Flonase) 1 actuation NS DAILY JR PRN Reason: Protocol Last Admin: 09/06/17 10:28 Dose: 1 spr Furosemide (Lasix) 40 mg IVP 0600 JR PRN Reason: Protocol Last Admin: 09/06/17 05:37 Dose: 40 mg Hydralazine HCl (Apresoline) 50 mg PO TID [facility] Last Admin: 09/06/17 10:22 Dose: 50 mg Hydromorphone HCl (Dilaudid) 8 mg PO BID PRN PRN Reason: Pain, moderate (4-7) Last Admin: 09/06/17 03:16 Dose: 8 mg Cefepime HCl (Maxipime 2gm) 2 gm in 100 mls @ 100 mls/hr IVPB 0600,1800 JR PRN Reason: Protocol Stop: 09/09/17 06:01 Last Admin: 09/06/17 05:34 Dose: 100 mls/hr Insulin Detemir (Levemir) 30 unit SC BID JR PRN Reason: Protocol Last Admin: 09/06/17 10:27 Dose: 30 unit Insulin Human Lispro (Humalog) 5 units SC AC JR PRN Reason: Protocol Last Admin: 09/06/17 12:02 Dose: Not Given Insulin Human Regular (Humulin R Med) 0 units SC ACHS JR PRN Reason: Protocol Last Admin: 09/06/17 12:02 Dose: Not Given Isosorbide Mononitrate (Imdur) 60 mg PO 0600 [facility] PRN Reason: Protocol Last Admin: 09/06/17 05:19 Dose: 60 mg Losartan Potassium (Cozaar) 50 mg PO DAILY JR PRN Reason: Protocol Last Admin: 09/06/17 10:23 Dose: 50 mg Methylprednisolone (Solu-Medrol) 20 mg IVP DAILY JR PRN Reason: Protocol Last Admin: 09/06/17 10:24 Dose: 20 mg Metoprolol Succinate (Toprol Xl) 75 mg PO BRK JR PRN Reason: Protocol Last Admin: 09/06/17 08:26 Dose: 75 mg Montelukast Sodium (Singulair) 10 mg PO HS JR PRN Reason: Protocol Last Admin: 09/05/17 21:19 Dose: 10 mg Morphine Sulfate (Morphine) 6 mg IVP Q6H PRN; Protocol PRN Reason: Pain, severe (8-10) Last Admin: 09/06/17 13:13 Dose: 6 mg Olopatadine HCl (Patanol 0.1% Opht Soln) 0 ml OU DAILY [facility] Last Admin: 09/06/17 10:24 Dose: 1 drop Ondansetron HCl (Zofran Inj) 4 mg IVP Q4H PRN PRN Reason: Nausea/Vomiting Last Admin: 09/06/17 10:28 Dose: 4 mg Pantoprazole Sodium (Protonix Ec Tab) 20 mg PO 0600,1600 JR PRN Reason: Protocol Last Admin: 09/06/17 05:36 Dose: 20 mg Potassium Chloride (Klor-Con 10) 10 meq PO 0800 [facility] Last Admin: 09/06/17 08:25 Dose: 10 meq - Labs Labs: 09/04/17 07:30 09/04/17 07:30 - Additional Findings Additional findings: - Constitutional Appears: Non-toxic, No Acute Distress, some emesis staining clothes - Head Exam Head Exam: ATRAUMATIC, NORMAL INSPECTION, NORMOCEPHALIC - Eye Exam Eye Exam: EOMI, Normal appearance. absent: Conjunctival injection, Scleral icterus Pupil Exam: absent: Irregular, Unequal - ENT Exam ENT Exam: Mucous Membranes Moist - Neck Exam Neck exam: Negative for: Lymphadenopathy, Thyromegaly - Respiratory Exam Respiratory Exam: Decreased Breath Sounds (mildly decreased breath sounds in all jessica, likely 2/2 body habitus), Clear to Auscultation Bilateral, NORMAL BREATHING PATTERN. absent: Accessory Muscle Use, Chest Wall Tenderness, Prolonged Expiratory Phase, Rales, Rhonchi, Wheezes, Respiratory Distress - Cardiovascular Exam Cardiovascular Exam: REGULAR RHYTHM, RRR, +S1, +S2. absent: Bradycardia, Tachycardia, Irregular Rhythm, JVD, +S4 - GI/Abdominal Exam GI & Abdominal Exam: Diminished Bowel Sounds, Soft. absent: Distended ( morbidly obese but not distended), Firm, Guarding, Hyperactive Bowel Sounds, Hypoactive Bowel Sounds, Normal Bowel Sounds, Rigid, Tenderness Additional comments: Colostomy present, 2 small solid stools present in bag (last changed 3 days prior) - Extremities Exam Extremities exam: Negative for: calf tenderness, pedal edema, tenderness Additional comments: some stretched/flaccid skin along bilateral LE (reported Anasarca on admission, now resolved) - Neurological Exam Neurological exam: Alert, Oriented x3 - Psychiatric Exam Psychiatric exam: Normal Affect, Normal Mood - Skin Skin Exam: Dry, Intact, Normal Color, Warm Assessment and Plan - Assessment and Plan (Free Text) Assessment: This is a 61 yo F with PMH of COPD, DM, HTN, CAD, unresectable rectal cancer s/ p chemo/rads tx and colostomy, s/p Port-a-cath placement, morbid obesity with BMI 50, obstructive sleep apnea non-compliant with Bipap, and hx of severe pulmonary embolism on life-long anticoagulation s/p clot lysis and IVC filter placement who originally presented to [facility] [place] for progressively worsening shortness of breath x2-3 weeks. She has been worked up and treated for CHF exacerbation vs pneumonia, and is now in the TCU for reconditioning while continuing treatment. Heme-onc was consulted for lack of appetite. Plan: COPD DM HTN CAD unresectable rectal cancer s/p chemo/rads tx and colostomy s/p Port-a-cath placement morbid obesity with BMI 50 obstructive sleep apnea non-compliant with Bipap hx of severe pulmonary embolism on life-long anticoagulation s/p clot lysis and IVC filter placement CHF exacerbation vs pneumonia, severe sepsis - improved -Given hx of medication compliance morbid obesity, likely DM remains poorly controlled (last A1c obtained 12/02/13, was 12.3), high risk for gastroparesis -Denies B-symptoms, including uncontrolled/unintentional weight loss (has lost weight since admission, 2/2 diuresis in setting of anasarca/chf exacerbation), night sweats, etc; less likely lack of appetite is oncologic in nature -minimal colostomy output, decreased bowel sounds, early satiety, and excessive belching consistent with gastroparesis, yaneth in setting of (likely) poorly controlled DM -May have lack of appetite 2/2 recovery from recent severe disease -Multiple episodes AM emesis, rec zofran prn for nausea/emesis -GI following, appreciate their insights; may be 2/2 gastroparesis, likely needs repeat colonoscopy (last 3 yrs ago) -new A1c ordered, CT chest/abd/pelvis to rule out new mets ordered -continue therapeutic anticoagulation, requires lifelong AC 2/2 severe pulm embolism requiring lysis and IVC filter Patient reviewed and discussed with attending, Dr. Faye
--- NOTE | 2017-09-06 16:51 | PN ---
DATE: 09/06/2017 PULMONARY PROGRESS NOTE REFERRING PHYSICIAN: Elroy Florian M.D. SUBJECTIVE: She is lying in the bed. Night was unremarkable. Tolerated BiPAP for 2 hours. Cough and rhinitis is better. Feels weak and tired. No nausea, no vomiting, no abdomina pain. No leg pain and no leg swelling. PHYSICAL EXAMINATION: GENERAL: In no acute distress. VITAL SIGNS: Temperature is 98, heart rate is 84, respiratory rate is 18, blood pressure is 164/66, and pulse ox is 92% on room air. HEENT: Moist mucous membrane. Crowded airway. NECK: Supple. No JVD. LUNGS: Have fair airflow with rhonchi. HEART: S1 and S2. ABDOMEN: Soft, nontender and nondistended. G-tube area looks okay. EXTREMITIES: No edema. NEUROLOGICAL: Awake and alert. Follows simple commands. MEDICATIONS: She is on hydralazine 50 mg three times a day, clonidine 0.2 mg every 6 hours p.r.n., Cozaar 50 mg daily, Dilaudid 8 mg p.o. twice a day p.r.n., doxycycline 100 mg twice a day, DuoNeb every 6 hours round the clock, Eliquis 5 mg twice a day, Flonase one spray each nostril daily, insulin coverage, Imdur 60 mg daily, potassium 10 mEq daily, Lasix 40 mg daily, Levemir 30 units subcutaneous twice a day, cefepime 2 g IV twice a day, morphine 6 mg every 6 hours p.r.n., Norvasc 10 mg daily. She is on Patanol eye drops, also on Protonix 20 mg twice a day, Singulair 10 mg at bedtime, Solu-Medrol 20 mg daily, Toprol-XL 75 mg daily, Tylenol p.r.n., Zofran on a p.r.n. basis. LABORATORY DATA: Showed blood sugar this morning 119. Microbiology, no report is available. IMPRESSION AND PLAN: Chronic obstructive lung disease, status post respiratory failure requiring noninvasive ventilation, CO2 retention and hypoxemia, has a claustrophobia. Noncompliant with CPAP/BiPAP. I will continue to encourage her. Has a chronic pain syndrome, on lot of pain medication; also anxiety disorder on sedatives; history of colorectal cancer requiring surgery and colostomy; diabetes; chronic lung disease. Pulmonary point of view, she is doing okay. There maybe component of hypoventilation syndrome, need to watch closely with all these opiates and benzodiazepines. High risk of respiratory failure. Continue to encourage BiPAP while sleeping. May use BiPAP while sleeping during the daytime. Keep head elevated at 45 degrees. Gastric prophylaxis, sequential compression device to lower extremities. High risk for fall. Continue therapy. Thank you and we will follow up with you. Pamela Ayala MD
[2017-09-07] MEDS: Albuterol-Ipratrop 3 mg / 0.5 (3 ml) UD IH SCH ×5 (02:00→20:14)
[2017-09-07] MEDS: Cefepime IV 2 gm in NS 2 GM/100 ML BAG IVPB SCH (05:00)
[2017-09-07] MEDS: Pantoprazole 20 mg EC Tab PO SCH ×2 (05:04→17:52)
[2017-09-07] MEDS: Insulin Reg-MEDIUM-Coverage SC SCH ×4 (06:42→22:09)
[2017-09-07] MEDS: Insulin Lispro 1 UNITS/0.01 ML SC SCH ×3 (06:42→17:46)
[2017-09-07 06:46] LABS: BASO # 0.02 K/mm3 (0.0-2.0); BASO % 0.2 % (0.0-3.0); EOS # 0.1 (0.0-0.7); EOS % 1.6 % (1.5-5.0); GRAN # 4.64 (1.4-6.5); GRAN % 57.3 % (50.0-68.0); HEMOGLOBIN 9.7 g/dL (12.0-16.0); LYMPH # 2.6 (1.2-3.4); LYMPH % 31.5 % (22.0-35.0); MEAN CORPUSCULAR HEMOGLOBIN 26.4 pg (25.0-35.0); MEAN CORPUSCULAR HGB CONC 30.3 g/dl (31.0-37.0); MEAN PLATELET VOLUME 10.5 fl (7.0-11.0); MONO # 0.8 (0.1-0.6); MONO % 9.4 % (1.0-6.0); RBC 3.68 10^6/uL (3.5-6.1); RED CELL DISTRIBUTION WIDTH 15.4 % (11.5-14.5); WHITE BLOOD COUNT 8.1 10^3/ul (4.5-11.0)
[2017-09-07 07:16] LABS: ALB/GLOB RATIO 0.8 (1.1-1.8); CALCIUM 8.6 mg/dL (8.4-10.5)
[2017-09-07] MEDS: Potassium Chloride 10 mEq ER Tab PO SCH (08:40)
[2017-09-07] MEDS ORDERED: Potassium Chloride 20 mEq ER Tab PO ONE (09:37)
--- NOTE | 2017-09-07 09:42 | PN ---
DATE: 09/06/2017 SUBJECTIVE: The patient is seen lying in bed. She is lying comfortably. She does not appear to be any kind of distress. PHYSICAL EXAMINATION: VITAL SIGNS: Blood pressure 164/66, heart rate 84, respiratory rate 17, temperature 98. HEENT: Normocephalic, atraumatic, positive pallor. NECK: Supple, no JVD. LUNGS: Bilateral equal air entry, bilateral equal expansion, no rales. CARDIAC: S1 and S2, regular rate and rhythm, no murmur, no rub. ABDOMEN: Obese, distended, soft, nontender, bowel sounds present, positive colostomy. EXTREMITIES: Trace lower extremity edema. INTAKE AND OUTPUT: Not charted. LABORATORY DATA: No new labs. MEDICATIONS: Apresoline 50 t.i.d., Catapres 0.2 every 6 p.r.n., losartan 50, Dilaudid, doxycycline, Eliquis, insulin. Kristine Archibald MD
--- NOTE | 2017-09-07 10:42 | CP.PCM.PN ---
Subjective - Date & Time of Evaluation Date of Evaluation: 09/07/17 Time of Evaluation: 09:05 - Subjective Subjective: Comfortable on a chair, no fevers, not in distress. Objective - Vital Signs/Intake and Output Vital Signs (last 24 hours): Temp Pulse Resp BP Pulse Ox 98.5 F 87 18 161/60 H 94 L 09/06/17 17:02 09/06/17 17:40 09/06/17 17:02 09/07/17 05:07 09/06/17 17:02 - Medications Medications: Current Medications Acetaminophen (Tylenol 325mg Tab) 650 mg PO Q6H PRN; Protocol PRN Reason: Pain, moderate (4-7) Last Admin: 09/05/17 04:06 Dose: 650 mg Albuterol/Ipratropium (Duoneb 3 Mg/0.5 Mg (3 Ml) Ud) 3 ml IH [id number] JR PRN Reason: Protocol Last Admin: 09/07/17 02:00 Dose: Not Given Amlodipine Besylate (Norvasc) 10 mg PO DAILY JR PRN Reason: Protocol Last Admin: 09/06/17 10:23 Dose: 10 mg Apixaban (Eliquis) 5 mg PO BID JR PRN Reason: Protocol Last Admin: 09/06/17 17:42 Dose: 5 mg Clonidine HCl (Catapres) 0.2 mg PO Q6H PRN; Protocol PRN Reason: SBP>170 Last Admin: 09/04/17 06:14 Dose: 0.2 mg Fluticasone Propionate (Flonase) 1 actuation NS DAILY JR PRN Reason: Protocol Last Admin: 09/06/17 10:28 Dose: 1 spr Furosemide (Lasix) 40 mg IVP 0600 JR PRN Reason: Protocol Last Admin: 09/07/17 05:07 Dose: 40 mg Hydralazine HCl (Apresoline) 100 mg PO TID JR Hydromorphone HCl (Dilaudid) 8 mg PO BID PRN PRN Reason: Pain, moderate (4-7) Last Admin: 09/06/17 16:41 Dose: 8 mg Insulin Detemir (Levemir) 30 unit SC BID JR PRN Reason: Protocol Last Admin: 09/06/17 17:42 Dose: 30 unit Insulin Human Lispro (Humalog) 5 units SC AC JR PRN Reason: Protocol Last Admin: 09/06/17 17:38 Dose: 5 units Insulin Human Regular (Humulin R Med) 0 units SC ACHS JR PRN Reason: Protocol Last Admin: 09/06/17 22:05 Dose: Not Given Isosorbide Mononitrate (Imdur) 60 mg PO 0600 JR PRN Reason: Protocol Last Admin: 09/07/17 05:04 Dose: 60 mg Losartan Potassium (Cozaar) 100 mg PO DAILY JR Methylprednisolone (Solu-Medrol) 20 mg IVP DAILY [facility] PRN Reason: Protocol Last Admin: 09/06/17 10:24 Dose: 20 mg Metoprolol Succinate (Toprol Xl) 100 mg PO BRK JR Montelukast Sodium (Singulair) 10 mg PO HS JR PRN Reason: Protocol Last Admin: 09/06/17 22:04 Dose: 10 mg Morphine Sulfate (Morphine) 6 mg IVP Q6H PRN; Protocol PRN Reason: Pain, severe (8-10) Last Admin: 09/06/17 13:13 Dose: 6 mg Olopatadine HCl (Patanol 0.1% Opht Soln) 0 ml OU DAILY [facility] Last Admin: 09/06/17 10:24 Dose: 1 drop Ondansetron HCl (Zofran Inj) 4 mg IVP Q4H PRN PRN Reason: Nausea/Vomiting Last Admin: 09/06/17 17:50 Dose: 4 mg Pantoprazole Sodium (Protonix Ec Tab) 20 mg PO 0600,1600 JR PRN Reason: Protocol Last Admin: 09/07/17 05:04 Dose: 20 mg Potassium Chloride (Klor-Con 10) 10 meq PO 0800 [facility] Last Admin: 09/06/17 08:25 Dose: 10 meq - Labs Labs: 09/04/17 07:30 09/04/17 07:30 - Constitutional Appears: Chronically Ill - Head Exam Head Exam: NORMAL INSPECTION - Respiratory Exam Respiratory Exam: Decreased Breath Sounds - Cardiovascular Exam Cardiovascular Exam: +S1, +S2 - GI/Abdominal Exam GI & Abdominal Exam: Soft. absent: Tenderness Assessment and Plan - Assessment and Plan (Free Text) Plan: Assessment Acute exacerbation of COPD, clinically improved asymptomatic bacteriuria history of VRE UTI history of severe sepsis secondary to left medial thigh abscess, growing Proteus , S/P incision and drainage DM HTN CAD Unresectable rectal cancer S/P chemotherapy and radiation therapy S/P colostomy S/P Port-a-cath placement morbid obesity with BMI 50 obstructive sleep apnea history of pulmonary embolism S/P IVC filter placement Plan S/P Cefepime and Doxcycline - will monitor off antibiotics since she is at risk for nosocomial infections
[2017-09-07] MEDS: Metoprolol Succinate 100 mg XL Tab PO SCH (11:11)
--- NOTE | 2017-09-07 13:28 | RAD ---
HISTORY: nausea, emesis, distension COMPARISON: No prior. FINDINGS: BOWEL: Normal. No obstruction. No free air. BONES: Normal. OTHER FINDINGS: None. IMPRESSION: No active disease.
[2017-09-07] MEDS: Insulin Detemir 100 units/ml Vial (Levemir) SC SCH ×2 (14:05→22:09)
[2017-09-07] MEDS: Olopatadine 0.1% Opht Sol OU SCH (14:06)
[2017-09-07] MEDS: MethylPREDNISolone 40 mg Vial IVP SCH (14:07)
--- NOTE | 2017-09-07 15:35 | CP.PCM.PN ---
Subjective - Date & Time of Evaluation Date of Evaluation: 09/07/17 Time of Evaluation: 09:20 - Subjective Subjective: Heme-onc Progress Note, Alfredo Renteria DO, PGY2 IM This is a 61 yo F with PMH of COPD, DM, HTN, CAD, unresectable rectal cancer s/ p chemo/rads tx and colostomy, s/p Port-a-cath placement, morbid obesity with BMI 50, obstructive sleep apnea non-compliant with Bipap, and hx of severe pulmonary embolism on life-long anticoagulation s/p clot lysis and IVC filter placement who [place] [facility] [place] worsening shortness of breath x2-3 weeks. She has been worked up and treated for CHF exacerbation vs pneumonia, and is now in the TCU for reconditioning while continuing treatment. Heme-onc was consulted for lack of appetite. Pt seen and examined at bedside in the TCU. Reports additional emesis episodes since yesterday, clear to yellow emesis. Denies hematemesis. Denies chest pain , shortness of breath, dizziness, room-spinning. Only small additional stool in colostomy, and now had mild diffuse abdominal pain. Only able to minimally tolerate PO fluids. Objective - Vital Signs/Intake and Output Vital Signs (last 24 hours): Temp Pulse Resp BP Pulse Ox 98.7 F 105 H 18 159/77 H 96 09/07/17 10:37 09/07/17 14:03 09/07/17 10:37 09/07/17 14:03 09/07/17 10:37 - Medications Medications: Current Medications Acetaminophen (Tylenol 325mg Tab) 650 mg PO Q6H PRN; Protocol PRN Reason: Pain, moderate (4-7) Last Admin: 09/05/17 04:06 Dose: 650 mg Albuterol/Ipratropium (Duoneb 3 Mg/0.5 Mg (3 Ml) Ud) 3 ml IH [id number] JR PRN Reason: Protocol Last Admin: 09/07/17 13:17 Dose: Not Given Amlodipine Besylate (Norvasc) 10 mg PO DAILY JR PRN Reason: Protocol Last Admin: 09/07/17 11:10 Dose: 10 mg Apixaban (Eliquis) 5 mg PO BID JR PRN Reason: Protocol Last Admin: 09/07/17 11:09 Dose: 5 mg Clonidine HCl (Catapres) 0.2 mg PO Q6H PRN; Protocol PRN Reason: SBP>170 Last Admin: 09/04/17 06:14 Dose: 0.2 mg Fluticasone Propionate (Flonase) 1 actuation NS DAILY [facility] PRN Reason: Protocol Last Admin: 09/06/17 10:28 Dose: 1 spr Furosemide (Lasix) 40 mg IVP 0600 JR PRN Reason: Protocol Last Admin: 09/07/17 05:07 Dose: 40 mg Hydralazine HCl (Apresoline) 100 mg PO TID [facility] Last Admin: 09/07/17 14:03 Dose: 100 mg Hydromorphone HCl (Dilaudid) 8 mg PO BID PRN PRN Reason: Pain, moderate (4-7) Last Admin: 09/07/17 14:47 Dose: 8 mg Potassium Chloride (Potassium Chloride 20 Meq/100 Ml) 20 meq in 100 mls @ 50 mls/hr IVPB Q2H JR PRN Reason: Protocol Stop: 09/07/17 18:29 Insulin Detemir (Levemir) 30 unit SC BID [facility] PRN Reason: Protocol Last Admin: 09/07/17 14:05 Dose: Not Given Insulin Human Lispro (Humalog) 5 units SC AC JR PRN Reason: Protocol Last Admin: 09/07/17 12:03 Dose: Not Given Insulin Human Regular (Humulin R Med) 0 units SC ACHS [facility] PRN Reason: Protocol Last Admin: 09/07/17 12:04 Dose: Not Given Isosorbide Mononitrate (Imdur) 60 mg PO 0600 [facility] PRN Reason: Protocol Last Admin: 09/07/17 05:04 Dose: 60 mg Losartan Potassium (Cozaar) 100 mg PO DAILY [facility] Last Admin: 09/07/17 12:01 Dose: 100 mg Methylprednisolone (Solu-Medrol) 20 mg IVP DAILY [facility] PRN Reason: Protocol Last Admin: 09/07/17 14:07 Dose: 20 mg Metoprolol Succinate (Toprol Xl) 100 mg PO BRK [facility] Last Admin: 09/07/17 11:11 Dose: 100 mg Montelukast Sodium (Singulair) 10 mg PO HS [facility] PRN Reason: Protocol Last Admin: 09/06/17 22:04 Dose: 10 mg Morphine Sulfate (Morphine) 6 mg IVP Q6H PRN; Protocol PRN Reason: Pain, severe (8-10) Last Admin: 09/06/17 13:13 Dose: 6 mg Nystatin (Nystatin Oral Susp) 5 ml PO QID [facility] Olopatadine HCl (Patanol 0.1% Opht Soln) 0 ml OU DAILY JR Last Admin: 09/07/17 14:06 Dose: 1 drop Ondansetron HCl (Zofran Inj) 4 mg IVP Q4H PRN PRN Reason: Nausea/Vomiting Last Admin: 09/06/17 17:50 Dose: 4 mg Pantoprazole Sodium (Protonix Ec Tab) 20 mg PO 0600,1600 JR PRN Reason: Protocol Last Admin: 09/07/17 05:04 Dose: 20 mg Potassium Chloride (Klor-Con 10) 10 meq PO 0800 JR Last Admin: 09/07/17 08:40 Dose: 10 meq - Labs Labs: 09/07/17 06:37 09/07/17 06:37 - Additional Findings Additional findings: - Constitutional Appears: Non-toxic, No Acute Distress, some emesis staining clothes - Head Exam Head Exam: ATRAUMATIC, NORMAL INSPECTION, NORMOCEPHALIC - Eye Exam Eye Exam: EOMI, Normal appearance. absent: Conjunctival injection, Scleral icterus Pupil Exam: absent: Irregular, Unequal - ENT Exam ENT Exam: Dry membranes with whitish secretions - Neck Exam Neck exam: Negative for: Lymphadenopathy, Thyromegaly - Respiratory Exam Respiratory Exam: Decreased Breath Sounds (mildly decreased breath sounds in all jessica, likely 2/2 body habitus), Clear to Auscultation Bilateral, NORMAL BREATHING PATTERN. absent: Accessory Muscle Use, Chest Wall Tenderness, Prolonged Expiratory Phase, Rales, Rhonchi, Wheezes, Respiratory Distress - Cardiovascular Exam Cardiovascular Exam: REGULAR RHYTHM, RRR, +S1, +S2. absent: Bradycardia, Tachycardia, Irregular Rhythm, JVD, +S4 - GI/Abdominal Exam GI & Abdominal Exam: Diminished Bowel Sounds, Soft. absent: Distended ( morbidly obese but not distended), Firm, Guarding, Hyperactive Bowel Sounds, Hypoactive Bowel Sounds, Normal Bowel Sounds, Rigid, Tenderness Additional comments: Colostomy present, 3 small solid stools present in bag (last changed 4 days prior) - Extremities Exam Extremities exam: Negative for: calf tenderness, pedal edema, tenderness Additional comments: some stretched/flaccid skin along bilateral LE (reported Anasarca on admission, now resolved) - Neurological Exam Neurological exam: Alert, Oriented x3 - Psychiatric Exam Psychiatric exam: Normal Affect, Normal Mood - Skin Skin Exam: Dry, Intact, Normal Color, Warm Assessment and Plan - Assessment and Plan (Free Text) Assessment: This is a 61 yo F with PMH of COPD, DM, HTN, CAD, unresectable rectal cancer s/ p chemo/rads tx and colostomy, s/p Port-a-cath placement, morbid obesity with BMI 50, obstructive sleep apnea non-compliant with Bipap, and hx of severe pulmonary embolism on life-long anticoagulation s/p clot lysis and IVC filter placement who originally presented [place] [facility] [place] progressively worsening shortness of breath x2-3 weeks. She has been worked up and treated for CHF exacerbation vs pneumonia, and is now in the TCU for reconditioning while continuing treatment. Heme-onc was consulted for lack of appetite. Plan: COPD DM HTN CAD unresectable rectal cancer s/p chemo/rads tx and colostomy s/p Port-a-cath placement morbid obesity with BMI 50 obstructive sleep apnea non-compliant with Bipap hx of severe pulmonary embolism on life-long anticoagulation s/p clot lysis and IVC filter placement CHF exacerbation vs pneumonia, severe sepsis - improved -Given hx of medication compliance morbid obesity, A1c 7.3 so less likely uncontrolled DM -Denies B-symptoms, including uncontrolled/unintentional weight loss (has lost weight since admission, 2/2 diuresis in setting of anasarca/chf exacerbation), night sweats, etc; less likely lack of appetite is oncologic in nature -minimal colostomy output, decreased bowel sounds, early satiety, and excessive belching consistent with gastroparesis, yaneth in setting of (likely) poorly controlled DM -May have lack of appetite 2/2 recovery from recent severe disease -still having recurrent emesis, continue zofran prn -GI following, appreciate their insights; may be 2/2 gastroparesis, likely needs repeat colonoscopy (last 3 yrs ago) -unable to obtain CT due to being in TCU, flat plate obtained, negative for SBO -continue therapeutic anticoagulation, requires lifelong AC 2/2 severe pulm embolism requiring lysis and IVC filter -dry mouth today with possible secretions, start swish and swallow nystatin Patient reviewed and discussed with attending, Dr. Faye
[2017-09-07] MEDS: Fluticasone Nasal 50 mcg/Spray NS SCH (16:56)
[2017-09-07] MEDS: Nystatin 100,000 Units/ml Oral Susp 5 ml UD PO SCH ×2 (17:51→21:22)
--- NOTE | 2017-09-07 17:53 | CP.PCM.PN ---
<Ginger Chatterjee - Last Filed: 09/07/17 17:52> Subjective - Date & Time of Evaluation Date of Evaluation: 09/07/17 Time of Evaluation: 10:20 - Subjective Subjective: Seen and examined at the bedside earlier today, chart reviewed. No acute overnight events reported. Patient does report having nausea and no appetite, had some vomiting, no hematemesis, patient did not have dinner last night or eat breakfast yet this morning. No reports of vomiting. Patient having small amount of stool via colostomy, no reports of bleeding. Abdominal xray noted and no active disease, no obstruction. Objective - Vital Signs/Intake and Output Vital Signs (last 24 hours): Temp Pulse Resp BP Pulse Ox 98.8 F 95 H 18 130/66 95 09/07/17 16:47 09/07/17 16:47 09/07/17 16:47 09/07/17 16:47 09/07/17 16:47 - Medications Medications: Current Medications Acetaminophen (Tylenol 325mg Tab) 650 mg PO Q6H PRN; Protocol PRN Reason: Pain, moderate (4-7) Last Admin: 09/05/17 04:06 Dose: 650 mg Albuterol/Ipratropium (Duoneb 3 Mg/0.5 Mg (3 Ml) Ud) 3 ml IH [id number] JR PRN Reason: Protocol Last Admin: 09/07/17 13:17 Dose: Not Given Amlodipine Besylate (Norvasc) 10 mg PO DAILY JR PRN Reason: Protocol Last Admin: 09/07/17 11:10 Dose: 10 mg Apixaban (Eliquis) 5 mg PO BID JR PRN Reason: Protocol Last Admin: 09/07/17 11:09 Dose: 5 mg Clonidine HCl (Catapres) 0.2 mg PO Q6H PRN; Protocol PRN Reason: SBP>170 Last Admin: 09/04/17 06:14 Dose: 0.2 mg Fluticasone Propionate (Flonase) 1 actuation NS DAILY JR PRN Reason: Protocol Last Admin: 09/07/17 16:56 Dose: 1 spr Furosemide (Lasix) 40 mg IVP 0600 JR PRN Reason: Protocol Last Admin: 09/07/17 05:07 Dose: 40 mg Hydralazine HCl (Apresoline) 100 mg PO TID JR Last Admin: 09/07/17 14:03 Dose: 100 mg Hydromorphone HCl (Dilaudid) 8 mg PO BID PRN PRN Reason: Pain, moderate (4-7) Last Admin: 09/07/17 14:47 Dose: 8 mg Potassium Chloride (Potassium Chloride 20 Meq/100 Ml) 20 meq in 100 mls @ 50 mls/hr IVPB Q2H [facility] PRN Reason: Protocol Stop: 09/07/17 18:29 Last Admin: 09/07/17 16:58 Dose: 50 mls/hr Insulin Detemir (Levemir) 30 unit SC BID [facility] PRN Reason: Protocol Last Admin: 09/07/17 14:05 Dose: Not Given Insulin Human Lispro (Humalog) 5 units SC AC [facility] PRN Reason: Protocol Last Admin: 09/07/17 12:03 Dose: Not Given Insulin Human Regular (Humulin R Med) 0 units SC ACHS [facility] PRN Reason: Protocol Last Admin: 09/07/17 12:04 Dose: Not Given Isosorbide Mononitrate (Imdur) 60 mg PO 0600 [facility] PRN Reason: Protocol Last Admin: 09/07/17 05:04 Dose: 60 mg Losartan Potassium (Cozaar) 100 mg PO DAILY [facility] Last Admin: 09/07/17 12:01 Dose: 100 mg Methylprednisolone (Solu-Medrol) 20 mg IVP DAILY [facility] PRN Reason: Protocol Last Admin: 09/07/17 14:07 Dose: 20 mg Metoprolol Succinate (Toprol Xl) 100 mg PO BRK [facility] Last Admin: 09/07/17 11:11 Dose: 100 mg Montelukast Sodium (Singulair) 10 mg PO HS [facility] PRN Reason: Protocol Last Admin: 09/06/17 22:04 Dose: 10 mg Morphine Sulfate (Morphine) 6 mg IVP Q6H PRN; Protocol PRN Reason: Pain, severe (8-10) Last Admin: 09/06/17 13:13 Dose: 6 mg Nystatin (Nystatin Oral Susp) 5 ml PO QID [facility] Olopatadine HCl (Patanol 0.1% Opht Soln) 0 ml OU DAILY [facility] Last Admin: 09/07/17 14:06 Dose: 1 drop Ondansetron HCl (Zofran Inj) 4 mg IVP Q4H PRN PRN Reason: Nausea/Vomiting Last Admin: 09/06/17 17:50 Dose: 4 mg Pantoprazole Sodium (Protonix Ec Tab) 20 mg PO 0600,1600 JR PRN Reason: Protocol Last Admin: 09/07/17 05:04 Dose: 20 mg Potassium Chloride (Klor-Con 10) 10 meq PO 0800 JR Last Admin: 09/07/17 08:40 Dose: 10 meq - Labs Labs: 09/07/17 06:37 09/07/17 06:37 - Constitutional Appears: No Acute Distress - Eye Exam Eye Exam: Normal appearance. absent: Scleral icterus - ENT Exam ENT Exam: Mucous Membranes Moist - Respiratory Exam Respiratory Exam: NORMAL BREATHING PATTERN. absent: Respiratory Distress - Cardiovascular Exam Cardiovascular Exam: +S1, +S2 - GI/Abdominal Exam GI & Abdominal Exam: Soft, Tenderness (LUQ, ileostomy with soft brown stool, no blood, mucus fistula no bleeing, dressing dry), Hypoactive Bowel Sounds. absent : Guarding, Rebound - Extremities Exam Extremities Exam: absent: Calf Tenderness, Pedal Edema - Neurological Exam Neurological Exam: Alert, Awake, Oriented x3 - Skin Skin Exam: Dry, Warm Assessment and Plan - Assessment and Plan (Free Text) Assessment: Assessment: S/P Respiratory Distress, H/O COPD Abdominal pain Nausea Gastroparesis Rectal carcinoma s/p chemo radiation w/ anterior resection, transverse colostomy and closure of mucous fistula Pulmonary hypertension Morbid Obesity DM Anemia H/O PE PLAN: diet as tolerated continue PPI, on Protonix 20 mg BID on IV and oral antibiotics on Solumedrol DVT prophylaxsis on Eliquis monitor H/H and overt GI bleeding will need colonoscopy at some point when patient is optimized can be done electively outpatient unless otherwise indicated. Recent Respiratory failure and h/o pulmonary hypertension. Seen and discussed w/ Dr. Benitez. <Gita Benitez V - Last Filed: 09/07/17 23:45> Objective - Vital Signs/Intake and Output Vital Signs (last 24 hours): Temp Pulse Resp BP Pulse Ox 98.8 F 95 H 18 130/66 95 09/07/17 16:47 09/07/17 17:44 09/07/17 16:47 09/07/17 17:44 09/07/17 16:47 - Medications Medications: Current Medications Acetaminophen (Tylenol 325mg Tab) 650 mg PO Q6H PRN; Protocol PRN Reason: Pain, moderate (4-7) Last Admin: 09/05/17 04:06 Dose: 650 mg Albuterol/Ipratropium (Duoneb 3 Mg/0.5 Mg (3 Ml) Ud) 3 ml IH [id number] JR PRN Reason: Protocol Last Admin: 09/07/17 20:14 Dose: 3 ml Amlodipine Besylate (Norvasc) 10 mg PO DAILY JR PRN Reason: Protocol Last Admin: 09/07/17 11:10 Dose: 10 mg Apixaban (Eliquis) 5 mg PO BID JR PRN Reason: Protocol Last Admin: 09/07/17 17:45 Dose: 5 mg Clonidine HCl (Catapres) 0.2 mg PO Q6H PRN; Protocol PRN Reason: SBP>170 Last Admin: 09/04/17 06:14 Dose: 0.2 mg Fluticasone Propionate (Flonase) 1 actuation NS DAILY [facility] PRN Reason: Protocol Last Admin: 09/07/17 16:56 Dose: 1 spr Hydralazine HCl (Apresoline) 100 mg PO TID [facility] Last Admin: 09/07/17 17:44 Dose: 100 mg Hydromorphone HCl (Dilaudid) 8 mg PO BID PRN PRN Reason: Pain, moderate (4-7) Last Admin: 09/07/17 14:47 Dose: 8 mg Insulin Detemir (Levemir) 30 unit SC BID [facility] PRN Reason: Protocol Last Admin: 09/07/17 22:09 Dose: Not Given Insulin Human Lispro (Humalog) 5 units SC AC JR PRN Reason: Protocol Last Admin: 09/07/17 17:46 Dose: 5 units Insulin Human Regular (Humulin R Med) 0 units SC ACHS JR PRN Reason: Protocol Last Admin: 09/07/17 22:09 Dose: Not Given Isosorbide Mononitrate (Imdur) 60 mg PO 0600 [facility] PRN Reason: Protocol Last Admin: 09/07/17 05:04 Dose: 60 mg Losartan Potassium (Cozaar) 100 mg PO DAILY [facility] Last Admin: 09/07/17 12:01 Dose: 100 mg Methylprednisolone (Solu-Medrol) 20 mg IVP DAILY [facility] PRN Reason: Protocol Last Admin: 09/07/17 14:07 Dose: 20 mg Metoprolol Succinate (Toprol Xl) 100 mg PO BRK [facility] Last Admin: 09/07/17 11:11 Dose: 100 mg Montelukast Sodium (Singulair) 10 mg PO HS [facility] PRN Reason: Protocol Last Admin: 09/07/17 21:23 Dose: 10 mg Morphine Sulfate (Morphine) 6 mg IVP Q6H PRN; Protocol PRN Reason: Pain, severe (8-10) Last Admin: 09/06/17 13:13 Dose: 6 mg Nystatin (Nystatin Oral Susp) 5 ml PO QID JR Last Admin: 09/07/17 21:22 Dose: 5 ml Olopatadine HCl (Patanol 0.1% Opht Soln) 0 ml OU DAILY [facility] Last Admin: 09/07/17 14:06 Dose: 1 drop Ondansetron HCl (Zofran Inj) 4 mg IVP Q4H PRN PRN Reason: Nausea/Vomiting Last Admin: 09/06/17 17:50 Dose: 4 mg Pantoprazole Sodium (Protonix Ec Tab) 20 mg PO 0600,1600 [facility] PRN Reason: Protocol Last Admin: 09/07/17 17:52 Dose: 20 mg Potassium Chloride (Klor-Con 10) 20 meq PO 0800 [facility] - Labs Labs: 09/07/17 06:37 09/07/17 06:37 Attending/Attestation - Attestation I have personally seen and examined this patient.: Yes I have fully participated in the care of the patient.: Yes I have reviewed all pertinent clinical information, including history, physical exam and plan: Yes Notes (Text): This is an addendum to GI progress report dictated by Ginger Chatterjee APN.The patient was seen and examined earlier. Medical records, lab studies, imagings were reviewed. Last 24 hours events reviewed. Agreed with the above treatment plan as outlined in Ginger Chatterjee APN's notes the with the addition of the following 09/07/17 23:45
[2017-09-07] MEDS ORDERED: Potassium Chloride 10 mEq ER Tab PO SCH (19:24)
--- NOTE | 2017-09-07 21:50 | PN ---
DATE: 09/07/2017 PULMONARY PROGRESS NOTE REFERRING PHYSICIAN: Elroy Florian M.D. SUBJECTIVE: Patient was sitting in the reclining chair, back to bed with the help of staff. Cough is better. Has a poor appetite. No nausea. No vomiting. No diarrhea. There is no significant leg swelling. Has a chronic back pain. OBJECTIVE: GENERAL: In no acute distress. VITAL SIGNS: Temp is 98, heart rate is 95, respiratory rate is 18, blood pressure 130/66, pulse ox 95% on room air. HEENT: Moist mucous membrane. Crowded airway. NECK: Supple. No JVD. LUNGS: Have a fair airflow with few rhonchi. HEART: S1 and S2. ABDOMEN: Soft, nontender, no organomegaly. EXTREMITIES: No edema. NEUROLOGIC: Awake, alert, follows simple commands. MEDICATIONS: She is on hydralazine 100 mg three times a day, clonidine patch 0.2 mg every 6 hours, Cozaar 100 mg daily, Dilaudid 8 mg twice a day p.r.n., DuoNeb every 6 hours, Eliquis 5 mg twice a day, Flonase one spray to each nostril daily, insulin coverage, Imdur 60 mg daily, potassium 10 mEq daily, Lasix 40 mg daily, Levemir 30 units subcu twice a day, morphine 6 mg every 6 hours p.r.n., Norvasc 10 mg daily, Protonix 20 mg twice a day, Singulair 10 mg daily, Solu-Medrol 20 mg daily, Toprol-XL 100 mg daily, Tylenol p.r.n., Zofran p.r.n. LABORATORY DATA: Shows hemoglobin 9.7, hematocrit 32.7, WBC 8.1, platelet count is 311. Sodium 146, potassium 3.0, chloride 107, bicarbonate 34, BUN 50, creatinine 1.7, glucose 260, calcium is 8.6, phosphorus 3.0, magnesium 1.4. AST 48, ALT 67, alk phos is 109. Albumin is 3.0. IMPRESSION AND PLAN: Chronic obstructive lung disease, respiratory failure requiring noninvasive ventilation on admission, had a carbon dioxide retention and hypoxemia, also may have a sleep apnea syndrome, chronic pain syndrome, anxiety disorder, history of colorectal cancer requiring nephrostomy and has a colostomy, diabetes, chronic lung disease. From a Pulmonary point of view, she is slowly improving. Continue antibiotics, p.o. and inhaled bronchodilators. Keep head at 45 degrees. Encourage BiPAP use. Gastric prophylaxis. May benefit from Orthopedic Surgery consult and/or pain management. Fall precaution. Thank you and we will follow with you. Pamela Ayala MD
--- NOTE | 2017-09-07 23:03 | PN ---
DATE: 09/07/2017 SUBJECTIVE: The patient is seen sitting in chair. She is awake, she is alert. She is very fatigued. She complains of being tired. PHYSICAL EXAMINATION: GENERAL: Morbidly obese, middle-aged lady, sitting in chair. VITAL SIGNS: Blood pressure 188/65, heart rate 90, respiratory rate 18, temperature 98.8. HEENT: Normocephalic, dry, positive pallor. NECK: Supple, no JVD. LUNGS: Bilateral equal air entry, bilateral equal expansion. CARDIAC: S1 and S2, regular rate rhythm, no murmur, no rub. ABDOMEN: Obese, distended, soft, nontender, bowel sounds present, positive colostomy. EXTREMITIES: 1+ pitting edema. INTAKE AND OUTPUT: Not charted. LABORATORY DATA: WBC 8.1, hemoglobin 9.7, hematocrit 32, platelets 311. Sodium 146, potassium 3, chloride 107, CO2 of 34, BUN 50, creatinine 1.7, glucose 91, calcium 8.6, phosphorus 3, magnesium 1.4, AST 48, ALT 67. CURRENT MEDICATIONS: Apresoline, Catapres; Cozaar 100, increased yesterday because of uncontrolled hypertension, Dilaudid 8 mg p.o. b.i.d. p.r.n. DuoNeb, Eliquis 5 b.i.d., insulin, Imdur 60, potassium 10 mEq, Lasix 40 IV daily, amlodipine 10. ASSESSMENT: 1. Acute kidney injury superimposed on chronic kidney disease stage III. 2. Severe hypokalemia. 3. Prerenal azotemia. 4. Morbid obesity. 5. Hypertension. 6. Non-insulin dependent diabetes mellitus. 7. History of rectal cancer, colostomy. 8. Recent pulmonary edema. PLAN: 1. Discontinue IV Lasix. 2. Start Lasix 40 mg p.o. daily. 3. Increase potassium supplementation. 4. Monitor potassium and creatinine closely. 5. Monitor labs closely. Kristine Archibald MD
[2017-09-08] MEDS: Albuterol-Ipratrop 3 mg / 0.5 (3 ml) UD IH SCH ×4 (04:31→19:55)
[2017-09-08] MEDS: Pantoprazole 20 mg EC Tab PO SCH ×2 (05:23→18:05)
[2017-09-08] MEDS: Insulin Reg-MEDIUM-Coverage SC SCH ×4 (06:46→22:01)
[2017-09-08] MEDS: Insulin Lispro 1 UNITS/0.01 ML SC SCH ×3 (06:46→18:00)
[2017-09-08] MEDS: Metoprolol Succinate 100 mg XL Tab PO SCH (10:27)
[2017-09-08] MEDS: MethylPREDNISolone 40 mg Vial IVP SCH (10:31)
[2017-09-08] MEDS: Olopatadine 0.1% Opht Sol OU SCH (10:34)
[2017-09-08] MEDS: Nystatin 100,000 Units/ml Oral Susp 5 ml UD PO SCH ×4 (10:34→21:37)
--- NOTE | 2017-09-08 11:39 | CP.PCM.PN ---
Subjective - Date & Time of Evaluation Date of Evaluation: 09/08/17 Time of Evaluation: 11:10 - Subjective Subjective: Patient is about to for physical therapy, no fevers, cough and breathing are better. Objective - Vital Signs/Intake and Output Vital Signs (last 24 hours): Temp Pulse Resp BP Pulse Ox 98.8 F 95 H 18 171/66 H 95 09/07/17 16:47 09/07/17 17:44 09/07/17 16:47 09/08/17 05:22 09/07/17 16:47 - Medications Medications: Current Medications Acetaminophen (Tylenol 325mg Tab) 650 mg PO Q6H PRN; Protocol PRN Reason: Pain, moderate (4-7) Last Admin: 09/05/17 04:06 Dose: 650 mg Albuterol/Ipratropium (Duoneb 3 Mg/0.5 Mg (3 Ml) Ud) 3 ml IH [id number] JR PRN Reason: Protocol Last Admin: 09/08/17 04:31 Dose: Not Given Amlodipine Besylate (Norvasc) 10 mg PO DAILY JR PRN Reason: Protocol Last Admin: 09/07/17 11:10 Dose: 10 mg Apixaban (Eliquis) 5 mg PO BID JR PRN Reason: Protocol Last Admin: 09/07/17 17:45 Dose: 5 mg Clonidine HCl (Catapres) 0.2 mg PO Q6H PRN; Protocol PRN Reason: SBP>170 Last Admin: 09/08/17 05:22 Dose: 0.2 mg Fluticasone Propionate (Flonase) 1 actuation NS DAILY JR PRN Reason: Protocol Last Admin: 09/07/17 16:56 Dose: 1 spr Hydralazine HCl (Apresoline) 100 mg PO TID [facility] Last Admin: 09/07/17 17:44 Dose: 100 mg Hydromorphone HCl (Dilaudid) 8 mg PO BID PRN PRN Reason: Pain, moderate (4-7) Last Admin: 09/07/17 14:47 Dose: 8 mg Insulin Detemir (Levemir) 30 unit SC BID JR PRN Reason: Protocol Last Admin: 09/07/17 22:09 Dose: Not Given Insulin Human Lispro (Humalog) 5 units SC AC JR PRN Reason: Protocol Last Admin: 09/08/17 06:46 Dose: Not Given Insulin Human Regular (Humulin R Med) 0 units SC ACHS [facility] PRN Reason: Protocol Last Admin: 09/08/17 06:46 Dose: Not Given Isosorbide Mononitrate (Imdur) 60 mg PO 0600 [facility] PRN Reason: Protocol Last Admin: 09/08/17 05:23 Dose: 60 mg Losartan Potassium (Cozaar) 100 mg PO DAILY [facility] Last Admin: 09/07/17 12:01 Dose: 100 mg Methylprednisolone (Solu-Medrol) 20 mg IVP DAILY [facility] PRN Reason: Protocol Last Admin: 09/07/17 14:07 Dose: 20 mg Metoprolol Succinate (Toprol Xl) 100 mg PO BRK [facility] Last Admin: 09/07/17 11:11 Dose: 100 mg Montelukast Sodium (Singulair) 10 mg PO HS [facility] PRN Reason: Protocol Last Admin: 09/07/17 21:23 Dose: 10 mg Morphine Sulfate (Morphine) 6 mg IVP Q6H PRN; Protocol PRN Reason: Pain, severe (8-10) Last Admin: 09/06/17 13:13 Dose: 6 mg Nystatin (Nystatin Oral Susp) 5 ml PO QID [facility] Last Admin: 09/07/17 21:22 Dose: 5 ml Olopatadine HCl (Patanol 0.1% Opht Soln) 0 ml OU DAILY [facility] Last Admin: 09/07/17 14:06 Dose: 1 drop Ondansetron HCl (Zofran Inj) 4 mg IVP Q4H PRN PRN Reason: Nausea/Vomiting Last Admin: 09/06/17 17:50 Dose: 4 mg Pantoprazole Sodium (Protonix Ec Tab) 20 mg PO 0600,1600 [facility] PRN Reason: Protocol Last Admin: 09/08/17 05:23 Dose: 20 mg Potassium Chloride (Klor-Con 10) 20 meq PO 0800 [facility] - Labs Labs: 09/07/17 06:37 09/07/17 06:37 - Constitutional Appears: Chronically Ill - Head Exam Head Exam: NORMAL INSPECTION - Neck Exam Additional comments: right IJ TLC in place - Respiratory Exam Respiratory Exam: Decreased Breath Sounds - Cardiovascular Exam Cardiovascular Exam: +S1, +S2 - GI/Abdominal Exam GI & Abdominal Exam: Soft. absent: Tenderness Assessment and Plan - Assessment and Plan (Free Text) Plan: Assessment Acute exacerbation of COPD, clinically improved and S/P treatment with antibiotics asymptomatic bacteriuria history of VRE UTI history of severe sepsis secondary to left medial thigh abscess, growing Proteus , S/P incision and drainage DM HTN CAD Unresectable rectal cancer S/P chemotherapy and radiation therapy S/P colostomy S/P Port-a-cath placement morbid obesity with BMI 50 obstructive sleep apnea history of pulmonary embolism S/P IVC filter placement Plan S/P Cefepime and Doxcycline - will monitor off antibiotics since she is at risk for hospital-acquired infections will recommend removal of the right IJ central venous catheter to minimize risk of infection
[2017-09-08] MEDS: Insulin Detemir 100 units/ml Vial (Levemir) SC SCH ×2 (12:45→18:02)
[2017-09-08] MEDS: Fluticasone Nasal 50 mcg/Spray NS SCH (13:55)
--- NOTE | 2017-09-08 15:38 | PN ---
DATE: 09/08/2017 SUBJECTIVE: The patient is seen lying in bed. She is lethargic. She is arousable. She appears very weak. PHYSICAL EXAMINATION: GENERAL: Obese elderly lady, lying in bed. VITAL SIGNS: Blood pressure 154/74, heart rate 92, respiratory rate 18-20, temperature 98. HEENT: Normocephalic, atraumatic. NECK: Supple, no JVD. LUNGS: Bilateral equal air entry, bilateral equal expansion. CARDIAC: S1 and S2. Regular rate and rhythm, no murmur, no rub. ABDOMEN: Obese, distended, soft, nontender, bowel sounds present, positive colostomy. EXTREMITIES: No lower extremity edema. LABORATORY DATA: No new labs. MEDICATIONS: Apresoline, Catapres, losartan, Dilaudid, Eliquis, Flonase, insulin, Imdur, potassium 20 mEq daily, Levemir, Norvasc, nystatin, Singulair, Solu-Medrol, Toprol-XL, Tylenol, Zofran. ASSESSMENT: 1. Acute kidney injury superimposed on chronic kidney disease stage 3. 2. Hypokalemia. 3. Status post pulmonary edema. 4. Cbk-esobang-xirfhfihl diabetes mellitus. 5. Hypertension. 6. Morbid obesity. PLAN: 1. Change Lasix to p.o. 2. Continue potassium supplementation. 3. Monitor closely as outpatient. Kristine Archibald MD
--- NOTE | 2017-09-08 16:19 | PN ---
DATE: 09/08/2017 This is [facility]'s surgical specialty hospital-coordinated hlth visit on TCU. For Dr. Faye. SUBJECTIVE: The patient is a 61-year-old female lying awake in bed with a bland affect, the family at the bedside, with poor appetite, otherwise appears to be in no acute distress. She is on TCU for reconditioning with possible discharge home once she is stable; however, her hypokalemia is currently being addressed. The patient is known to suffer from history of colon cancer with a colostomy, morbid obesity, history of pulmonary embolism, COPD, diabetes mellitus, coronary artery disease. With this, the patient is otherwise known to have a port, which is flushed periodically with Dr. Faye's office. PHYSICAL EXAMINATION: VITAL SIGNS: Temperature 98.8, pulse 92, respirations 18, blood pressure 154/72 with a pulse ox of 95%. HEENT: Tongue is moist, but coated with questionable Candidiasis, yeast infection. NECK: Supple. HEART: Regular rate. LUNGS: Occasional rhonchi. ABDOMEN: Morbidly obese with a viable colostomy. EXTREMITIES: Faint +1 edema. SKIN: Warm and dry. NEUROLOGIC: Awake, alert, but lethargic with the patient complaining of fatigue. LABORATORY DATA: The patient's labs were done yesterday. White blood cell count of 8.1, hemoglobin 9.7, hematocrit of 32, platelet count of 311,000 with a chem metabolic panel showing a potassium of 3 yesterday, BUN of 50, creatinine of 1.7 with nonfasting glucose today of 225. AST of 48, ALT of 67 yesterday. The patient had a flat plate of the abdomen done yesterday that was read as no active disease. It should be noted that the patient did have a PET/CT scan done in [facility] on 04/17/2017; the impression was suboptimal study due to the patient's body habitus, no evidence of FDG avid tumor or lymphadenopathy, presacral soft tissue density noted posterior to the bladder without evidence of significant increased FDG uptake. ASSESSMENT: For this patient is that of history of cancer of the rectum with colostomy, diabetes mellitus, morbid obesity, status post pulmonary embolism with hypercoagulable state, congestive heart failure, history of left thigh abscess, sleep apnea, status post vena cava filter placement, anemia of chronic disease, with hypokalemia, now questionable depression. PLAN: For this patient,after conversation with Dr. Faye, is to continue present medical regimen as per Dr. Florian. The patient is seen with Dr. Archibald, renal admissions consultant, with recommendation to give oral potassium as the patient was taking diuretic at home, Lasix. We will also continue with her nystatin oral suspension for her oral candidiasis. The patient to be out of bed to chair with consideration for Psych consult for what appears to be depression, with her potassium to replenish orally as per Dr. Archibald and Dr. Florian's recommendation. Prognosis for this patient is guarded. Upon discharge, we will recommend the patient to follow up with us in the office with her port to be flushed every 6 weeks. Should the patient stay in the hospital, we will ask for labs to be done in the morning including a CEA and CA19-9. This is a complex patient with a comprehensive medically necessary and appropriate visit carried out in excess of 30 minutes [id number] time with the patient's history reviewed, with the patient's medications reviewed with the nurses on the floor and questions answered as per the patient's family members in attendance at the bedside. Zuhair Herrera MD
[2017-09-08 16:51] VITALS: O2SAT 93
[2017-09-09] MEDS: Albuterol-Ipratrop 3 mg / 0.5 (3 ml) UD IH SCH ×4 (01:52→20:16)
[2017-09-09] MEDS: Insulin Lispro 1 UNITS/0.01 ML SC SCH ×3 (06:31→17:19)
[2017-09-09] MEDS: Insulin Reg-MEDIUM-Coverage SC SCH ×4 (06:32→21:56)
[2017-09-09] MEDS: Pantoprazole 20 mg EC Tab PO SCH ×2 (06:41→17:22)
[2017-09-09 07:09] LABS: BASO # 0.03 K/mm3 (0.0-2.0); BASO % 0.3 % (0.0-3.0); EOS # 0.1 (0.0-0.7); EOS % 1.3 % (1.5-5.0); GRAN # 4.5 (1.4-6.5); GRAN % 48.4 % (50.0-68.0); HEMOGLOBIN 10.6 g/dL (12.0-16.0); LYMPH # 3.7 (1.2-3.4); LYMPH % 39.7 % (22.0-35.0); MEAN CELL VOLUME 87.8 fl (80.0-105.0); MEAN CORPUSCULAR HEMOGLOBIN 26.3 pg (25.0-35.0); MEAN CORPUSCULAR HGB CONC 29.9 g/dl (31.0-37.0); MEAN PLATELET VOLUME 10.9 fl (7.0-11.0); MONO % 10.3 % (1.0-6.0); RBC 4.03 10^6/uL (3.5-6.1); RED CELL DISTRIBUTION WIDTH 15.7 % (11.5-14.5); WHITE BLOOD COUNT 9.3 10^3/ul (4.5-11.0)
[2017-09-09 07:38] LABS: ALB/GLOB RATIO 0.9 (1.1-1.8); ALBUMIN 3.4 g/dL (3.0-4.8); CALCIUM 9.8 mg/dL (8.4-10.5)
[2017-09-09] MEDS ORDERED: Sodium Chloride 0.45% 1,000 ML IV SCH (10:15)
[2017-09-09] MEDS: Nystatin 100,000 Units/ml Oral Susp 5 ml UD PO SCH ×4 (10:23→21:17)
[2017-09-09] MEDS: Fluticasone Nasal 50 mcg/Spray NS SCH (10:25)
[2017-09-09] MEDS: Olopatadine 0.1% Opht Sol OU SCH (10:27)
[2017-09-09] MEDS: MethylPREDNISolone 40 mg Vial IVP SCH (10:28)
[2017-09-09] MEDS: Metoprolol Succinate 100 mg XL Tab PO SCH (10:28)
--- NOTE | 2017-09-09 11:21 | CP.PCM.PCO ---
Addendum Addendum: I met with patient at bedside. She is alert and oriented to month, location, year and circumstances. She defers on any psychiatric management at this time, reports that she has a lot of back pain. She is not suicidal and denies thoughts to harm others. Her responses are relevant to questioning though brief. Delusions were not elicited. She does not present as an acute, active danger to herself or others. At this time psychiatry will respect patient's wishes and sign off. Treatment team should discuss patient's pain concerns. Patient aware she may request our f/u at any time if she should change her mind. 09/09/17 11:18
[2017-09-09] MEDS: Insulin Detemir 100 units/ml Vial (Levemir) SC SCH ×3 (11:43→17:21)
--- NOTE | 2017-09-09 11:53 | CP.PCM.PN ---
Subjective - Date & Time of Evaluation Date of Evaluation: 09/09/17 Time of Evaluation: 10:55 - Subjective Subjective: Comfortable on a chair, no fevers, no diarrhea, still with occasional shortness of breath but no cough currently. Objective - Vital Signs/Intake and Output Vital Signs (last 24 hours): Temp Pulse Resp BP Pulse Ox 97.7 F 91 H 19 165/92 H 93 L 09/08/17 16:00 09/08/17 17:55 09/08/17 16:00 09/08/17 17:55 09/08/17 16:00 - Medications Medications: Current Medications Acetaminophen (Tylenol 325mg Tab) 650 mg PO Q6H PRN; Protocol PRN Reason: Pain, moderate (4-7) Last Admin: 09/05/17 04:06 Dose: 650 mg Albuterol/Ipratropium (Duoneb 3 Mg/0.5 Mg (3 Ml) Ud) 3 ml IH [id number] JR PRN Reason: Protocol Last Admin: 09/09/17 07:34 Dose: 3 ml Amlodipine Besylate (Norvasc) 10 mg PO DAILY JR PRN Reason: Protocol Last Admin: 09/08/17 10:30 Dose: 10 mg Apixaban (Eliquis) 5 mg PO BID JR PRN Reason: Protocol Last Admin: 09/08/17 17:56 Dose: 5 mg Clonidine HCl (Catapres) 0.2 mg PO Q6H PRN; Protocol PRN Reason: SBP>170 Last Admin: 09/08/17 05:22 Dose: 0.2 mg Fluticasone Propionate (Flonase) 1 actuation NS DAILY JR PRN Reason: Protocol Last Admin: 09/08/17 13:55 Dose: 1 spr Hydralazine HCl (Apresoline) 100 mg PO TID JR Last Admin: 09/08/17 17:55 Dose: 100 mg Hydromorphone HCl (Dilaudid) 8 mg PO BID PRN PRN Reason: Pain, moderate (4-7) Last Admin: 09/08/17 18:22 Dose: 8 mg Insulin Detemir (Levemir) 30 unit SC BID JR PRN Reason: Protocol Last Admin: 09/08/17 18:02 Dose: 30 unit Insulin Human Lispro (Humalog) 5 units SC AC JR PRN Reason: Protocol Last Admin: 09/09/17 06:31 Dose: Not Given Insulin Human Regular (Humulin R Med) 0 units SC ACHS JR PRN Reason: Protocol Last Admin: 09/09/17 06:32 Dose: Not Given Isosorbide Mononitrate (Imdur) 60 mg PO 0600 JR PRN Reason: Protocol Last Admin: 09/09/17 06:40 Dose: 60 mg Losartan Potassium (Cozaar) 100 mg PO DAILY [facility] Last Admin: 09/08/17 10:30 Dose: 100 mg Methylprednisolone (Solu-Medrol) 20 mg IVP DAILY JR PRN Reason: Protocol Last Admin: 09/08/17 10:31 Dose: 20 mg Metoprolol Succinate (Toprol Xl) 100 mg PO BRK [facility] Last Admin: 09/08/17 10:27 Dose: 100 mg Mirtazapine (Remeron) 30 mg PO HS [facility] Last Admin: 09/08/17 21:54 Dose: 30 mg Montelukast Sodium (Singulair) 10 mg PO HS [facility] PRN Reason: Protocol Last Admin: 09/08/17 21:55 Dose: 10 mg Nystatin (Nystatin Oral Susp) 5 ml PO QID [facility] Last Admin: 09/08/17 21:37 Dose: 5 ml Olopatadine HCl (Patanol 0.1% Opht Soln) 0 ml OU DAILY [facility] Last Admin: 09/08/17 10:34 Dose: 1 drop Ondansetron HCl (Zofran Inj) 4 mg IVP Q4H PRN PRN Reason: Nausea/Vomiting Last Admin: 09/08/17 12:46 Dose: 4 mg Pantoprazole Sodium (Protonix Ec Tab) 20 mg PO 0600,1600 JR PRN Reason: Protocol Last Admin: 09/09/17 06:41 Dose: 20 mg Potassium Chloride (Klor-Con 10) 20 meq PO 0800 [facility] Last Admin: 09/08/17 13:57 Dose: 20 meq - Labs Labs: 09/09/17 06:30 09/09/17 06:30 - Constitutional Appears: Chronically Ill - Head Exam Head Exam: NORMAL INSPECTION - ENT Exam ENT Exam: Mucous Membranes Moist - Neck Exam Neck Exam: absent: Meningismus Additional comments: right IJ TLC in place - Respiratory Exam Respiratory Exam: Decreased Breath Sounds - Cardiovascular Exam Cardiovascular Exam: +S1, +S2 - GI/Abdominal Exam GI & Abdominal Exam: Soft. absent: Tenderness Assessment and Plan - Assessment and Plan (Free Text) Plan: Assessment Acute exacerbation of COPD, clinically improved and S/P treatment with antibiotics asymptomatic bacteriuria history of VRE UTI history of severe sepsis secondary to left medial thigh abscess, growing Proteus , S/P incision and drainage DM HTN CAD Unresectable rectal cancer S/P chemotherapy and radiation therapy S/P colostomy S/P Port-a-cath placement morbid obesity with BMI 50 obstructive sleep apnea history of pulmonary embolism S/P IVC filter placement Plan S/P Cefepime and Doxcycline - will monitor off antibiotics since she is at risk for healthcare-associated infections will recommend removal of the right IJ central venous catheter to minimize risk of infection
[2017-09-09] MEDS: Sodium Chloride 0.45% 1,000 ML IV SCH (13:38)
[2017-09-09 16:36] VITALS: RESP 15; TEMP 99.9
--- NOTE | 2017-09-09 18:01 | PN ---
DATE: 09/09/2017 This is [facility]'s hospital visit on the TCU floor. For Dr. Faye. SUBJECTIVE: The patient is a 61-year-old female seen sitting up in a chair with a family member at the bedside, complaining of poor appetite, with the patient with a depressed affect; otherwise, she appears to be in no acute distress. However, upon testing, she is noted now to have signs of acute renal failure with her creatinine of 2.9, BUN of 79, with a conversation held with Dr. Archibald, kidney specialist and Dr. Florian, her primary doctor and the nurses on the floor and her family member at the bedside along with the patient recommending readmission to the medical floor. Also conversation was held with Dr. Benitez, gastrointestinal retail client solutions consultant, who reports that the patient was noncompliant with recommendations to followup for colonoscopy as she has a history of rectal cancer with a colostomy, with recent PET/CT in 04/2017 reviewed; however, the patient has not seen gastrointestinal consultants despite recommendations to do so in the past. This was addressed to her family member and with the patient reporting that she will consider this to be done. However, she is considered at a higher risk of testing due to her pulmonary hypertension with the sedation necessary to complete the test putting her higher risk. This would be considered at the time of evaluation before this procedure. The patient is also on Eliquis for history of pulmonary embolisms with this needing to be held in anticipation of any testing. At present, she is on IV fluids as the patient continues to have poor appetite. She was also seen by Psychiatry earlier today with the patient refusing to participate and reports that she is not suicidal; however, her depression appears to be a problem possibly due to her oncologic issues and pulmonary hypertension along with history of pulmonary emboli as possible causes of her depressed affect. PHYSICAL EXAMINATION: VITAL SIGNS: Temperature 97.3, pulse 95, respirations 20, blood pressure 122/60 with a pulse ox of 93%. HEENT: Unremarkable. Tongue is coated as she is being treated for oropharyngeal candidiasis. NECK: Supple. HEART: Regular rate. LUNGS: Scattered rhonchi. ABDOMEN: Morbidly obese with a viable colostomy. EXTREMITIES: A +1 edema of chronic nature. NEUROLOGIC: She is awake and alert with a depressed affect; however, she does answer questions appropriately to mini mental status exam given with her family member at the bedside. SKIN: Otherwise warm and dry. LABORATORY DATA: The patient's labs were done. White blood cell count of 9.3, hemoglobin of 10.6, hematocrit of 35.4, platelet count of 323,000 as this may be heme-constricted values as the patient has not been taking orally and she has no IV fluids at this point, just begun today. Her hemoglobin yesterday was 9.7 with a repeat of 10.6 today. The patient's other testing include a chem metabolic panel with a sodium of 151; her potassium is now 4.1, yesterday was 3.0. However, her BUN yesterday was 50; the BUN today is 79 with a creatinine of 1.7 yesterday, it is now 2.9. Her CEA value was done, the CEA was 4.4 with a CA-19-9 pending. ASSESSMENT: Deconditioning; acute renal failure; failure to thrive; history of cancer at the rectum with colostomy; diabetes mellitus; morbid obesity; status post pulmonary embolism with hypercoagulable state, on Eliquis; history of congestive heart failure; sleep apnea; anemia of chronic disease; hypokalemia, now improved and probable depression. PLAN: After conversation with Dr. Faye, Dr. Benitez, Dr. Archibald and Dr. Florian is to recommend readmission for treatment of acute renal failure with considerations for holding her Eliquis and anticipation of an endoscopy should be possible as the patient does also suffer from pulmonary hypertension. We will also continue her nystatin for her oropharyngeal candidiasis with her other medicines to continue as per consultants recommendations. The patient be transferred for hydration and readmitted to the medical floor as per Dr. Florian's recommendations as indicated. This is a complex patient with a comprehensive medically necessary and appropriate visit carried out in excess of 30 minutes [id number] time and also conversations were held with Dr. Florian, Dr. Benitez, Dr. Archibald, her nurse on the floor and the patient regarding recommendations listed above, with prognosis for this patient guarded. Also, the questions for the patient's family member at the bedtime were answered to his satisfaction with labs to be monitored and the patient to be monitored clinically. Zuhair MD [facility] # [id number]
--- NOTE | 2017-09-09 20:39 | PN ---
DATE: 09/09/2017 SUBJECTIVE: The patient is seen sitting in chair. She is awake. She is alert. She is smiling today. She is eating lunch. She denies any shortness of breath at present. PHYSICAL EXAMINATION GENERAL: Morbidly obese middle-aged lady sitting in chair. VITAL SIGNS: Blood pressure 122/60, heart rate 95, respiratory rate 20, temperature 97. HEENT: Normocephalic, atraumatic, positive pallor. NECK: Supple, no JVD. LUNGS: Bilateral equal air entry, no rales. CARDIAC: S1 and S2, regular rate and rhythm, no murmur, no rub. ABDOMEN: Obese, distended, soft, nontender, bowel sounds present. EXTREMITIES: No lower extremity edema. LABORATORY DATA: WBC 9, hemoglobin 10.6, hematocrit 35, platelets 323. Sodium 151, potassium 4.1, chloride 107, CO2 of 37, BUN 79, creatinine 2.9, glucose 128, calcium 9.8, albumin 3.4. CURRENT MEDICATIONS: Apresoline, Catapres, Dilaudid, DuoNeb, Eliquis, Imdur, Levemir, Lyrica, amlodipine 10, nystatin 5 four times a day, Protonix, Remeron, Singulair, half-normal saline at 50, Solu-Medrol, Toprol XL. ASSESSMENT: 1. Acute kidney injury superimposed on chronic kidney disease stage II/III, prerenal azotemia plus angiotensin II receptor blockers. 2. Resolved hypokalemia. 3. Recent pulmonary edema. 4. Hou-vwhiuft-phnyepbqo diabetes mellitus. 5. Hypertension. 6. Morbid obesity. 7. Sleep apnea. 8. Rectal caner with surgery colostomy. PLAN: 1. Agree with holding ARB. 2. Agree with discontinuation of Lasix. 3. Discontinue potassium supplementation. 4. Gentle dehydration. 5. Push p.o. fluids. 6. Check labs in a.m. Kristine Archibald MD
--- NOTE | 2017-09-09 23:55 | PN ---
DATE: 09/09/2017 REFERRING PHYSICIAN: Elroy Florian MD SUBJECTIVE: The patient is lying in the bed, head at 45 degrees. Night was unremarkable. No other compliant with the CPAP. No nausea, no vomiting. No diarrhea. Decreased cough. No abdominal pain. No leg pain. OBJECTIVE: GENERAL: In no acute distress. VITAL SIGNS: Temp is 99.9, heart rate is 96, respiratory rate is 16, blood pressure 134/62, pulse of 93% on room air. HEENT: Moist mucous membranes. Small oral cavity. Crowded airway. NECK: Supple. No JVD. LUNGS: Has a fair airflow with rhonchi. HEART: S1 and S2. ABDOMEN: Soft, nontender, nondistended. Colostomy bag was looks okay. EXTREMITIES: There is no edema. NEUROLOGIC: Awake and follows simple command. MEDICATIONS: She is on hydralazine 100 mg three times a day, clonidine 0.2 mg every 6 hours p.r.n., Dilaudid 8 mg p.o. twice a day p.r.n., DuoNeb every 6 hours, Eliquis 2.5 mg twice a day, Flonase once a day each nostril daily, insulin coverage, Imdur 60 mg daily, Levemir 30 units subcu twice a day, Lyrica 150 mg twice a day, Norvasc 10 mg daily, nystatin oral suspension four times daily, Protonix 20 mg twice a day, Remeron 30 mg at bedtime, Singulair 10 mg daily, IV fluid of normal saline 50 mL per hour, Solu-Medrol 20 mg IV daily, Toprol-XL 100 mg p.o. daily, Tylenol p.r.n., Zofran p.r.n. basis. LABORATORY DATA: Shows hemoglobin 10.6, hematocrit 35.4, WBC 9.3, platelet is 323. Sodium 151, potassium 4.1, chloride 107, bicarbonate 37, BUN 79, creatinine 2.9, glucose 128, calcium 9.8, AST 31, ALT 46, alk phos is 121, globulin 3.9. Carcinoembryonic antigen 4.4. CA 90/9 antigen is 59.6. IMPRESSION AND PLAN: Chronic obstructive lung disease, respiratory failure requiring noninvasive ventilation, had a CO2 retention and hypoxemia, may have sleep apnea syndrome, chronic pain syndrome, anxiety disorder, colorectal cancer requiring laparotomy and colostomy, diabetes, chronic lung disease, seen by Psychiatry, probably of depression. Pulmonary point of view, encouraged CPAP use. Keep head at 45 degrees. IV and inhaled bronchodilator, gastric prophylaxis. Sequential compression device to lower extremities. Thank you and we will follow with you. Pamela Ayala MD
--- NOTE | 2017-09-10 02:03 | PN ---
DATE: 09/09/2017 SUBJECTIVE: This patient was seen and evaluated earlier today. Discussed with nursing staff and TCU and also with Dr. Florian. PHYSICAL EXAMINATION: VITAL SIGNS: Temperature is 99.9, pulse 96, blood pressure 134/62. HEENT: Atraumatic, anicteric. NECK: Supple. HEART: S1 and S2 heard. LUNGS: Bilateral air entry present. ABDOMEN: Softly distended. EXTREMITIES: No cyanosis. No clubbing. LABORATORY DATA: Hemoglobin is 10.9, hematocrit 35, platelets 223, WBC is 9. Sodium 151, BUN 79, creatinine 2.9. IMPRESSION: This 61-year-old patient with a past medical history of morbid obesity, obstructive sleep apnea, noncompliant, chronic obstructive pulmonary disease, diabetes mellitus, hypertension, coronary artery disease, history of rectal cancer status post radiation chemotherapy and status post surgery, has transverse colostomy, admitted with shortness of breath. The patient has a history of pulmonary hypertension, obstructive sleep apnea, coronary artery disease. The patient has history of rectal cancer, rectal surgery, status post chemotherapy and radiation, admitted initially with shortness of breath. The patient was treated with noninvasive ventilation because fluid retention is improved. Now, the patient is in the TCU, has developed [id number] renal failure, and the patient is on intravenous hydration. The patient did have a PET scan done in April, did not show any increased activity, and the patient's last colonoscopy was in 2013. The patient would benefit from colonoscopic evaluation, but has to be further optimized before considering the procedure. The patient has high respiratory risk. We will discuss with anesthesiologist. RECOMMENDATIONS: The patient needs to be further optimized to consider colonoscopy evaluation. I will also discuss with Dr. Faye. I did have a detailed discussion with Dr. Florian earlier. I also spoke with the patient's son who was at bedside and also the patient at length today. Thank you very much for allowing us to participate in the care of the patient. Gita Benitez MD
[2017-09-10] MEDS: Albuterol-Ipratrop 3 mg / 0.5 (3 ml) UD IH SCH ×3 (02:12→13:20)
--- NOTE | 2017-09-10 05:01 | CP.PCM.PN ---
Subjective - Date & Time of Evaluation Date of Evaluation: 09/10/17 Time of Evaluation: 04:56 - Subjective Subjective: Nurse calls and tells that BP is 190/80. States that patient is somewhat drowsy, if she can give clonidine that is ordered prn for elevated blood pressure. FSBS is 279 mg %----> 141 mg %, HR 84/min, Pulse ox 98% , RR 14/min, Temp:98.5* F. Patient received Dilaudid 8mg IV at 8:49 PM. She has no complaints. No headache , dizziness, chest pain, sob. She is able to tell that she is in the hospital and recognize nurse. Can not give me the month and year. Medical record was reviewed. This 61 year old woman is admitted for IV antibiotics, diabetic management. Has PMH of CAD, coronary stent placement , pulmonary HTN, DVT,PE, HTN, IDDM, morbid obesity, SUMMER, HLD, chronic back pain, colorectal cancer,anemia, renal insufficiency. Objective - Vital Signs/Intake and Output Vital Signs (last 24 hours): Temp Pulse Resp BP Pulse Ox 99.9 F H 84 15 190/88 H 93 L 09/09/17 16:00 09/10/17 02:46 09/09/17 16:00 09/10/17 02:46 09/09/17 16:00 Intake and Output: 09/09/17 09/10/17 18:59 06:59 Intake Total 750 Output Total 400 Balance 350 - Medications Medications: Current Medications Acetaminophen (Tylenol 325mg Tab) 650 mg PO Q6H PRN; Protocol PRN Reason: Pain, moderate (4-7) Last Admin: 09/05/17 04:06 Dose: 650 mg Albuterol/Ipratropium (Duoneb 3 Mg/0.5 Mg (3 Ml) Ud) 3 ml IH [id number] JR PRN Reason: Protocol Last Admin: 09/10/17 02:12 Dose: Not Given Amlodipine Besylate (Norvasc) 10 mg PO DAILY JR PRN Reason: Protocol Last Admin: 09/09/17 10:27 Dose: 10 mg Apixaban (Eliquis) 2.5 mg PO BID JR PRN Reason: Protocol Last Admin: 09/09/17 17:18 Dose: 2.5 mg Clonidine HCl (Catapres) 0.2 mg PO Q6H PRN; Protocol PRN Reason: SBP>170 Last Admin: 09/10/17 02:46 Dose: 0.2 mg Fluticasone Propionate (Flonase) 1 actuation NS DAILY [facility] PRN Reason: Protocol Last Admin: 09/09/17 10:25 Dose: 1 spr Hydralazine HCl (Apresoline) 100 mg PO TID [facility] Last Admin: 09/09/17 17:17 Dose: 100 mg Hydromorphone HCl (Dilaudid) 8 mg PO BID PRN PRN Reason: Pain, moderate (4-7) Last Admin: 09/09/17 20:49 Dose: 8 mg Sodium Chloride (Sodium Chloride 0.45%) 1,000 mls @ 50 mls/hr IV .Q20H [facility] Last Admin: 09/09/17 13:38 Dose: 50 mls/hr Insulin Detemir (Levemir) 30 unit SC BID [facility] PRN Reason: Protocol Last Admin: 09/09/17 17:21 Dose: 30 unit Insulin Human Lispro (Humalog) 5 units SC AC [facility] PRN Reason: Protocol Last Admin: 09/09/17 17:19 Dose: 5 units Insulin Human Regular (Humulin R Med) 0 units SC ACHS [facility] PRN Reason: Protocol Last Admin: 09/09/17 21:56 Dose: Not Given Isosorbide Mononitrate (Imdur) 60 mg PO 0600 [facility] PRN Reason: Protocol Last Admin: 09/09/17 06:40 Dose: 60 mg Methylprednisolone (Solu-Medrol) 20 mg IVP DAILY [facility] PRN Reason: Protocol Last Admin: 09/09/17 10:28 Dose: 20 mg Metoprolol Succinate (Toprol Xl) 100 mg PO BRK [facility] Last Admin: 09/09/17 10:28 Dose: 100 mg Mirtazapine (Remeron) 30 mg PO HS [facility] Last Admin: 09/09/17 21:17 Dose: 30 mg Montelukast Sodium (Singulair) 10 mg PO HS [facility] PRN Reason: Protocol Last Admin: 09/09/17 21:17 Dose: 10 mg Nystatin (Nystatin Oral Susp) 5 ml PO QID [facility] Last Admin: 09/09/17 21:17 Dose: 5 ml Olopatadine HCl (Patanol 0.1% Opht Soln) 0 ml OU DAILY JR Last Admin: 09/09/17 10:27 Dose: 1 drop Ondansetron HCl (Zofran Inj) 4 mg IVP Q4H PRN PRN Reason: Nausea/Vomiting Last Admin: 09/08/17 12:46 Dose: 4 mg Pantoprazole Sodium (Protonix Ec Tab) 20 mg PO 0600,1600 JR PRN Reason: Protocol Last Admin: 09/09/17 17:22 Dose: 20 mg Pregabalin (Lyrica) 150 mg PO BID JR Last Admin: 09/09/17 17:24 Dose: 150 mg - Labs Labs: 09/09/17 06:30 09/09/17 06:30 Most Recent Lab Values WBC 9.3 10^3/ul (4.5-11.0) 09/09/17 06:30 RBC 4.03 10^6/uL (3.5-6.1) 09/09/17 06:30 Hgb 10.6 g/dL (12.0-16.0) L 09/09/17 06:30 Hct 35.4 % (36.0-48.0) L 09/09/17 06:30 MCV 87.8 fl (80.0-105.0) 09/09/17 06:30 MCH 26.3 pg (25.0-35.0) 09/09/17 06:30 MCHC 29.9 g/dl (31.0-37.0) L 09/09/17 06:30 RDW 15.7 % (11.5-14.5) H 09/09/17 06:30 Plt Count 323 10^3/uL (120.0-450.0) 09/09/17 06:30 MPV 10.9 fl (7.0-11.0) 09/09/17 06:30 Gran % 48.4 % (50.0-68.0) L 09/09/17 06:30 Lymph % (Auto) 39.7 % (22.0-35.0) H 09/09/17 06:30 Butts % (Auto) 10.3 % (1.0-6.0) H 09/09/17 06:30 Eos % (Auto) 1.3 % (1.5-5.0) L 09/09/17 06:30 Baso % (Auto) 0.3 % (0.0-3.0) 09/09/17 06:30 Gran # 4.50 (1.4-6.5) 09/09/17 06:30 Lymph # (Auto) 3.7 (1.2-3.4) H 09/09/17 06:30 Butts # (Auto) 1.0 (0.1-0.6) H 09/09/17 06:30 Eos # (Auto) 0.1 (0.0-0.7) 09/09/17 06:30 Baso # (Auto) 0.03 K/mm3 (0.0-2.0) 09/09/17 06:30 Sodium 151 mmol/L (132-148) H 09/09/17 06:30 Potassium 4.1 mmol/L (3.6-5.0) 09/09/17 06:30 Chloride 107 mmol/L (98-107) 09/09/17 06:30 Carbon Dioxide 37 mmol/L (21-33) H 09/09/17 06:30 Anion Gap 12 (10-20) 09/09/17 06:30 BUN 79 mg/dL (7-21) H 09/09/17 06:30 Creatinine 2.9 mg/dl (0.7-1.2) H 09/09/17 06:30 Est GFR ( Amer) 20 09/09/17 06:30 Est GFR (Non-Af Amer) 16 09/09/17 06:30 POC Glucose (mg/dL) 141 mg/dL (65-110) H 09/10/17 02:41 Random Glucose 128 mg/dL (70-110) H 09/09/17 06:30 Hemoglobin A1c 7.3 % (4.2-6.5) H D 09/06/17 13:00 Calcium 9.8 mg/dL (8.4-10.5) 09/09/17 06:30 Phosphorus 3.0 mg/dL (2.5-4.5) 09/07/17 06:37 Magnesium 1.4 mg/dL (1.7-2.2) L 09/07/17 06:37 Iron 56 ug/dL (45-180) 09/04/17 07:30 TIBC 248 ug/dL (265-497) L 09/04/17 07:30 % Saturation 23 % (20-55) 09/04/17 07:30 Ferritin 111.0 ng/mL 09/04/17 07:30 Total Bilirubin 0.3 mg/dL (0.2-1.3) 09/09/17 06:30 AST 31 U/L (14-36) 09/09/17 06:30 ALT 46 U/L (7-56) 09/09/17 06:30 Alkaline Phosphatase 121 U/L (38-126) 09/09/17 06:30 Total Protein 7.3 g/dL (5.8-8.3) 09/09/17 06:30 Albumin 3.4 g/dL (3.0-4.8) 09/09/17 06:30 Globulin 3.9 gm/dL 09/09/17 06:30 Albumin/Globulin Ratio 0.9 (1.1-1.8) L 09/09/17 06:30 Carcinoembryonic Ag 4.4 ng/mL (0.0-3.0) H 09/09/17 06:30 CA 19-9 Antigen 59.6 U/mL (0-37) H 09/09/17 06:30 - Constitutional Appears: Well, No Acute Distress - Head Exam Head Exam: ATRAUMATIC, NORMAL INSPECTION, NORMOCEPHALIC - Eye Exam Additional comments: Miotic pupils.Reactive to light. - ENT Exam ENT Exam: Normal External Ear Exam - Neck Exam Neck Exam: Normal Inspection - Respiratory Exam Respiratory Exam: NORMAL BREATHING PATTERN - Cardiovascular Exam Cardiovascular Exam: absent: JVD - GI/Abdominal Exam GI & Abdominal Exam: absent: Distended - Rectal Exam Rectal Exam: Deferred - Exam Additional comments: Deferred. - Extremities Exam Extremities Exam: Normal Inspection - Back Exam Back Exam: NORMAL INSPECTION - Neurological Exam Neurological Exam: Alert, Awake Additional comments: somewhat drowsy. - Psychiatric Exam Additional comments: Drowsy. - Skin Skin Exam: Normal Color Assessment and Plan - Assessment and Plan (Free Text) Assessment: Elevated blood pressure reading. Drowsy 2* to 8 mg of Dilaudid.? CAD. History of coronary stent placement . DVT history. PE history. Pulmonary HTN. HTN. IDDM. Morbid obesity. SUMMER. HLD. Chronic back pain. History of colorectal cancer. Anemia. Renal insufficiency. Plan: May have clonidine 0.2 mg PO x 1. BP was 128/54 one hour after clonidine was given. May need to adjust dilaudid dosage towards down side. Continue present management as per PMD.
[2017-09-10] MEDS: Pantoprazole 20 mg EC Tab PO SCH (05:43)
[2017-09-10] MEDS: Sodium Chloride 0.45% 1,000 ML IV SCH (05:43)
[2017-09-10] MEDS: Insulin Lispro 1 UNITS/0.01 ML SC SCH ×2 (06:44→12:11)
[2017-09-10] MEDS: Insulin Reg-MEDIUM-Coverage SC SCH ×2 (06:44→12:12)
[2017-09-10 07:18] LABS: BASO # 0.02 K/mm3 (0.0-2.0); BASO % 0.2 % (0.0-3.0); EOS # 0.2 (0.0-0.7); EOS % 2.2 % (1.5-5.0); GRAN # 5.43 (1.4-6.5); GRAN % 53.9 % (50.0-68.0); HEMOGLOBIN 9.4 g/dL (12.0-16.0); LYMPH # 3.6 (1.2-3.4); LYMPH % 36.1 % (22.0-35.0); MEAN CELL VOLUME 88.9 fl (80.0-105.0); MEAN CORPUSCULAR HEMOGLOBIN 26.2 pg (25.0-35.0); MEAN CORPUSCULAR HGB CONC 29.5 g/dl (31.0-37.0); MONO # 0.8 (0.1-0.6); MONO % 7.6 % (1.0-6.0); RBC 3.59 10^6/uL (3.5-6.1); WHITE BLOOD COUNT 10.1 10^3/ul (4.5-11.0)
[2017-09-10] MEDS ORDERED: Sodium Chloride 0.45% 1,000 ML IV SCH ×2 (07:32→08:30)
[2017-09-10 07:42] LABS: ALB/GLOB RATIO 0.9 (1.1-1.8); CALCIUM 9.3 mg/dL (8.4-10.5)
[2017-09-10] MEDS: Metoprolol Succinate 100 mg XL Tab PO SCH (08:09)
[2017-09-10] MEDS ORDERED: Magnesium Sulfate 2 GM in Sodium Chloride 0.9% 100 ML IV ONE (09:37)
[2017-09-10] MEDS ORDERED: Magnesium Oxide 400 mg Tab UD PO SCH (10:00)
[2017-09-10] MEDS: Fluticasone Nasal 50 mcg/Spray NS SCH (10:30)
[2017-09-10] MEDS: Nystatin 100,000 Units/ml Oral Susp 5 ml UD PO SCH ×2 (10:31→15:36)
[2017-09-10] MEDS: Olopatadine 0.1% Opht Sol OU SCH (10:32)
[2017-09-10] MEDS: MethylPREDNISolone 40 mg Vial IVP SCH (10:32)
[2017-09-10 10:52] VITALS: BP 138/68; PULSE 82
--- NOTE | 2017-09-10 10:56 | CP.PCM.PN ---
Subjective - Date & Time of Evaluation Date of Evaluation: 09/10/17 Time of Evaluation: 09:45 - Subjective Subjective: Comfortable in bed, no fevers, not in distress. Objective - Vital Signs/Intake and Output Vital Signs (last 24 hours): Temp Pulse Resp BP Pulse Ox 99.9 F H 79 15 145/65 93 L 09/09/17 16:00 09/10/17 08:09 09/09/17 16:00 09/10/17 08:09 09/09/17 16:00 Intake and Output: 09/10/17 09/10/17 06:59 18:59 Intake Total 750 Output Total 400 Balance 350 - Medications Medications: Current Medications Acetaminophen (Tylenol 325mg Tab) 650 mg PO Q6H PRN; Protocol PRN Reason: Pain, moderate (4-7) Last Admin: 09/05/17 04:06 Dose: 650 mg Albuterol/Ipratropium (Duoneb 3 Mg/0.5 Mg (3 Ml) Ud) 3 ml IH [id number] PRN Reason: Protocol Last Admin: 09/10/17 07:09 Dose: 3 ml Amlodipine Besylate (Norvasc) 10 mg PO DAILY JR PRN Reason: Protocol Last Admin: 09/09/17 10:27 Dose: 10 mg Apixaban (Eliquis) 2.5 mg PO BID JR PRN Reason: Protocol Last Admin: 09/09/17 17:18 Dose: 2.5 mg Clonidine HCl (Catapres) 0.2 mg PO Q6H PRN; Protocol PRN Reason: SBP>170 Last Admin: 09/10/17 02:46 Dose: 0.2 mg Fluticasone Propionate (Flonase) 1 actuation NS DAILY JR PRN Reason: Protocol Last Admin: 09/09/17 10:25 Dose: 1 spr Hydralazine HCl (Apresoline) 100 mg PO TID JR Last Admin: 09/09/17 17:17 Dose: 100 mg Hydromorphone HCl (Dilaudid) 8 mg PO BID PRN PRN Reason: Pain, moderate (4-7) Last Admin: 09/09/17 20:49 Dose: 8 mg Sodium Chloride (Sodium Chloride 0.45%) 1,000 mls @ 75 mls/hr IV .[id number] [facility] Last Admin: 09/10/17 08:09 Dose: 75 mls/hr Insulin Detemir (Levemir) 30 unit SC BID JR PRN Reason: Protocol Last Admin: 09/09/17 17:21 Dose: 30 unit Insulin Human Lispro (Humalog) 5 units SC AC JR PRN Reason: Protocol Last Admin: 09/10/17 06:44 Dose: Not Given Insulin Human Regular (Humulin R Med) 0 units SC ACHS JR PRN Reason: Protocol Last Admin: 09/10/17 06:44 Dose: Not Given Isosorbide Mononitrate (Imdur) 60 mg PO 0600 JR PRN Reason: Protocol Last Admin: 09/10/17 05:43 Dose: 60 mg Methylprednisolone (Solu-Medrol) 20 mg IVP DAILY [facility] PRN Reason: Protocol Last Admin: 09/09/17 10:28 Dose: 20 mg Metoprolol Succinate (Toprol Xl) 100 mg PO BRK [facility] Last Admin: 09/10/17 08:09 Dose: 100 mg Mirtazapine (Remeron) 30 mg PO HS [facility] Last Admin: 09/09/17 21:17 Dose: 30 mg Montelukast Sodium (Singulair) 10 mg PO HS [facility] PRN Reason: Protocol Last Admin: 09/09/17 21:17 Dose: 10 mg Nystatin (Nystatin Oral Susp) 5 ml PO QID [facility] Last Admin: 09/09/17 21:17 Dose: 5 ml Olopatadine HCl (Patanol 0.1% Opht Soln) 0 ml OU DAILY [facility] Last Admin: 09/09/17 10:27 Dose: 1 drop Ondansetron HCl (Zofran Inj) 4 mg IVP Q4H PRN PRN Reason: Nausea/Vomiting Last Admin: 09/08/17 12:46 Dose: 4 mg Pantoprazole Sodium (Protonix Ec Tab) 20 mg PO 0600,1600 [facility] PRN Reason: Protocol Last Admin: 09/10/17 05:43 Dose: 20 mg Pregabalin (Lyrica) 150 mg PO BID [facility] Last Admin: 09/09/17 17:24 Dose: 150 mg - Labs Labs: 09/10/17 06:50 09/10/17 06:50 - Constitutional Appears: Chronically Ill - Head Exam Head Exam: NORMAL INSPECTION - Respiratory Exam Respiratory Exam: Decreased Breath Sounds - Cardiovascular Exam Cardiovascular Exam: +S1, +S2 - GI/Abdominal Exam GI & Abdominal Exam: Soft. absent: Tenderness Assessment and Plan - Assessment and Plan (Free Text) Plan: Assessment Acute exacerbation of COPD, clinically improved and S/P treatment with antibiotics asymptomatic bacteriuria history of VRE UTI history of severe sepsis secondary to left medial thigh abscess, growing Proteus , S/P incision and drainage DM HTN CAD Unresectable rectal cancer S/P chemotherapy and radiation therapy S/P colostomy S/P Port-a-cath placement morbid obesity with BMI 50 obstructive sleep apnea history of pulmonary embolism S/P IVC filter placement Plan S/P Cefepime and Doxcycline - will monitor off antibiotics since she is at risk for nosocomial infections will recommend removal of the right IJ central venous catheter to minimize risk of infection
[2017-09-10] MEDS: Insulin Detemir 100 units/ml Vial (Levemir) SC SCH (11:25)
--- NOTE | 2017-09-10 14:09 | PN ---
DATE: 09/07/2017 SUBJECTIVE: Patient was seen. She complained her appetite is not good. She still feels weak. She wants to go home for [facility], but she still needs followup as outpatient within next few days. Otherwise, no chest pain, no shortness of breath, no leg edema. Eating very little. Patient was advised to drink lot of fluids. PHYSICAL EXAMINATION VITAL SIGNS: Temperature 98.8, heart rate 95, blood pressure 130/66, respirations 18, saturation 94%. HEAD AND NECK: Normal. No JVD. No thyromegaly. CHEST: Clear. Good air entry. CARDIAC: First sound and second sound normal. ABDOMEN: Soft, nontender. Colostomy area seems clean. EXTREMITIES: No edema. Pulse bilaterally strong. NEUROLOGIC: Generalized weakness; otherwise, she is alert, awake, oriented and she recognized the persons and move all extremities although she is generally weak. LABORATORY DATA: White count 8.1, hemoglobin 9.7, hematocrit 32, platelets 311. Her chemistry on 09/07, blood sugar is in the 100-200 range. Her sodium 146, potassium 3, chloride 107, bicarbonate 34, BUN 50, creatinine 1.7. Liver function test is normal. Magnesium is low and the patient also had an AST and ALT that is elevated. IMPRESSION AND PLAN 1. Acute renal insufficiency, probably diuretic related. Dr. Archibald will see the patient and we will repeat the labs. Depending on the lab in the morning, we will decide where the patient should be going home and followed up closely or maybe we should keep her and monitor her condition. 2. Acute congestive heart failure. She is still on Lasix. Patient encouraged to increase p.o. We will consider holding Lasix as the kidney got worse. 3. Insulin-dependent diabetes. Blood sugar is stable. I do not want to go over the medication because she is not eating much. We will continue to monitor her blood sugar. 4. Electrolyte abnormality. We will replace potassium and magnesium. 5. Coronary artery disease with cardiac stents. 6. Morbid obesity. Patient does have probably obstructive sleep apnea, has never been evaluated and treated or maybe she did in the past and she did not follow up. We will take a look at the previous testing. 7. Anemia. Patient does have a history of rectal cancer. Had a PET scan in 2017 was negative. GI consult with Dr. Benitez. Recommendations to get a colonoscopy for further evaluation. 8. Loss of appetite, maybe due to underlying medical illnesses or depression or anxiety associated with that. We will continue to monitor her condition. 9. Hypercoagulable state including deep venous thrombosis and pulmonary embolism. Patient is getting Eliquis 5 mg b.i.d. If the kidney continue to get worse, we will decrease the Eliquis to 2.5 mg daily. Continue current therapy for now. Follow up with the other consultants. Elroy Florian MD
--- NOTE | 2017-09-10 14:12 | CP.PCM.PN ---
Subjective - Date & Time of Evaluation Date of Evaluation: 09/10/17 Time of Evaluation: 09:00 - Subjective Subjective: PGY-2 Heme-onc Progress Note Pt seen and examined at bedside in the TCU. Patient continues to report decreased appeitie and fatigue. Patient had decreased urinary output. She denies nausea or vomiting. She denies general pain, chest pain, shortness of breath, dizziness. Patient continue to have opening next to colostomy with no erythema and mild drainage. Objective - Vital Signs/Intake and Output Vital Signs (last 24 hours): Temp Pulse Resp BP Pulse Ox 99.9 F H 82 15 138/68 93 L 09/09/17 16:00 09/10/17 10:29 09/09/17 16:00 09/10/17 10:31 09/09/17 16:00 Intake and Output: 09/10/17 09/10/17 06:59 18:59 Intake Total 750 Output Total 400 Balance 350 - Medications Medications: Current Medications Acetaminophen (Tylenol 325mg Tab) 650 mg PO Q6H PRN; Protocol PRN Reason: Pain, moderate (4-7) Last Admin: 09/05/17 04:06 Dose: 650 mg Albuterol/Ipratropium (Duoneb 3 Mg/0.5 Mg (3 Ml) Ud) 3 ml IH [id number] PRN Reason: Protocol Last Admin: 09/10/17 13:20 Dose: 3 ml Amlodipine Besylate (Norvasc) 10 mg PO DAILY JR PRN Reason: Protocol Last Admin: 09/10/17 10:31 Dose: 10 mg Clonidine HCl (Catapres) 0.2 mg PO Q6H PRN; Protocol PRN Reason: SBP>170 Last Admin: 09/10/17 02:46 Dose: 0.2 mg Fluticasone Propionate (Flonase) 1 actuation NS DAILY JR PRN Reason: Protocol Last Admin: 09/10/17 10:30 Dose: 1 spr Heparin Sodium (Porcine) (Heparin) 800 units IV Q1 JR Hydralazine HCl (Apresoline) 100 mg PO TID JR Last Admin: 09/10/17 10:29 Dose: 100 mg Hydromorphone HCl (Dilaudid) 8 mg PO BID PRN PRN Reason: Pain, moderate (4-7) Last Admin: 09/09/17 20:49 Dose: 8 mg Sodium Chloride (Sodium Chloride 0.45%) 1,000 mls @ 100 mls/hr IV .Q10H [facility] Last Admin: 09/10/17 11:35 Dose: 100 mls/hr Insulin Detemir (Levemir) 30 unit SC BID [facility] PRN Reason: Protocol Last Admin: 09/10/17 11:25 Dose: 30 unit Insulin Human Lispro (Humalog) 5 units SC AC [facility] PRN Reason: Protocol Last Admin: 09/10/17 12:11 Dose: Not Given Insulin Human Regular (Humulin R Med) 0 units SC ACHS [facility] PRN Reason: Protocol Last Admin: 09/10/17 12:12 Dose: Not Given Isosorbide Mononitrate (Imdur) 60 mg PO 0600 [facility] PRN Reason: Protocol Last Admin: 09/10/17 05:43 Dose: 60 mg Magnesium Oxide (Mag-Ox) 400 mg PO BID [facility] Last Admin: 09/10/17 10:42 Dose: 400 mg Methylprednisolone (Solu-Medrol) 20 mg IVP DAILY [facility] PRN Reason: Protocol Last Admin: 09/10/17 10:32 Dose: 20 mg Metoprolol Succinate (Toprol Xl) 100 mg PO BRK [facility] Last Admin: 09/10/17 08:09 Dose: 100 mg Mirtazapine (Remeron) 30 mg PO HS [facility] Last Admin: 09/09/17 21:17 Dose: 30 mg Montelukast Sodium (Singulair) 10 mg PO HS [facility] PRN Reason: Protocol Last Admin: 09/09/17 21:17 Dose: 10 mg Nystatin (Nystatin Oral Susp) 5 ml PO QID [facility] Last Admin: 09/10/17 10:31 Dose: 5 ml Olopatadine HCl (Patanol 0.1% Opht Soln) 0 ml OU DAILY [facility] Last Admin: 09/10/17 10:32 Dose: 1 drop Ondansetron HCl (Zofran Inj) 4 mg IVP Q4H PRN PRN Reason: Nausea/Vomiting Last Admin: 09/10/17 10:36 Dose: 4 mg Pantoprazole Sodium (Protonix Ec Tab) 20 mg PO 0600,1600 [facility] PRN Reason: Protocol Last Admin: 09/10/17 05:43 Dose: 20 mg Pregabalin (Lyrica) 50 mg PO BID [facility] - Labs Labs: 09/10/17 06:50 09/10/17 06:50 - Constitutional Appears: No Acute Distress - Head Exam Head Exam: ATRAUMATIC, NORMOCEPHALIC - Eye Exam Eye Exam: EOMI, Normal appearance - ENT Exam ENT Exam: Mucous Membranes Moist - Respiratory Exam Respiratory Exam: Clear to Ausculation Bilateral, NORMAL BREATHING PATTERN. absent: Rhonchi, Wheezes, Respiratory Distress - Cardiovascular Exam Cardiovascular Exam: REGULAR RHYTHM. absent: Bradycardia, Tachycardia, Murmur - GI/Abdominal Exam GI & Abdominal Exam: Soft, Normal Bowel Sounds. absent: Tenderness Additional comments: colostomy in place, no erythema, opening next to colostomy bag, mild drainage - Extremities Exam Extremities Exam: Normal Inspection - Neurological Exam Neurological Exam: Alert, Awake, Oriented x3 - Skin Skin Exam: Dry, Intact, Normal Color, Warm Assessment and Plan - Assessment and Plan (Free Text) Assessment: 61 yo F with PMH of COPD, DM, HTN, CAD, unresectable rectal cancer s/p chemo/ rads tx and colostomy, morbid obesity with BMI 50, obstructive sleep apnea non- compliant with Bipap, and hx of severe pulmonary embolism on life-long anticoagulation s/p clot lysis and IVC filter placement who originally presented to [facility] for progressively worsening shortness of breath x2-3 weeks. She has been worked up and treated for CHF exacerbation vs pneumonia, and is now in the TCU for reconditioning while continuing treatment. Heme-onc was consulted for lack of appetite. Plan: COPD DM HTN CAD unresectable rectal cancer s/p chemo/rads tx and colostomy s/p Port-a-cath placement morbid obesity with BMI 50 obstructive sleep apnea non-compliant with Bipap hx of severe pulmonary embolism on life-long anticoagulation s/p clot lysis and IVC filter placement CHF exacerbation vs pneumonia, severe sepsis - improved - Worsening renal function, consider renal ultrasound and transfer to medical floor. -GI following, recommended colonoscope . -unable to obtain CT due to being in TCU, flat plate obtained, negative for SBO -continue therapeutic anticoagulation, with stop eliqus and start heparin due to increaseing creatinine. - will start heparin 8000unit and increase to 1000 - cont swish and swallow nystatin Patient reviewed and discussed with attending, Dr. Faye
--- NOTE | 2017-09-10 15:21 | PN ---
DATE: 09/09/2017 SUBJECTIVE: The patient is still weak, although she started eating on Remeron, but still feeling weak and still need assistance with most of the activity. The patient also discussed with the other consultants including Renal and GI. We are going to keep the patient and we may need to readmit her for further treatment. PHYSICAL EXAMINATION VITAL SIGNS: On 09/09/2017, include temperature 97.3, heart rate 95, blood pressure is 165/92, respirations 19, saturation 94% on room air. HEAD AND NECK: Normal. No JVD. No thyromegaly. CHEST: Clear bilaterally. CARDIAC: First sound and second sound normal. ABDOMEN: Obese, nontender. Colostomy area is clean. EXTREMITIES: No edema, pulses bilaterally are intact. The patient is very sensitive to touch in both legs and it seems to be hurting her. NEUROLOGIC: Generally weak. LABORATORY DATA: Sodium 151, potassium 4.1, chloride 107, bicarbonate 37, BUN 79, creatinine 2.9, 127, calcium 9.8. Liver function test is normal. IMPRESSION AND PLAN 1. Acute renal failure, probably diuretic related. We discontinued Lasix already, she is off Lasix. We will start IV fluids. She is off ESTEVAN inhibitors or ARBs, which is losartan, she is off losartan. We will start IV fluids at 100, but Dr. Archibald recommended to start slowly first 50 mL and we will monitor her labs in the morning. Hold Lasix, hold potassium. Continue to encourage the patient's p.o. intake and we will follow up clinically. Continue current therapy. Repeat labs in the morning. 2. Electrolyte abnormalities, the patient's potassium is better. We will continue magnesium, continue other therapy. 3. Congestive heart failure, she is compensated. Her lungs are clear and her breathing is better. She is more dry. 4. Anemia, etiology needs further evaluations. The patient will go for colonoscopy, has to be readmitted to medical floor for getting colonoscopy done, which could be done as outpatient; however, because of the comorbid illnesses of the patient with morbid obesity and possible pulmonary hypertension, we will get Cardiology as well as Pulmonary on the case, Dr. Ayala and Dr. Guerrero, to maximize her clinical condition to be better before any colonoscopy. 5. Chronic obstructive pulmonary disease and morbid obesity, obstructive sleep apnea. Continue inhaled bronchodilator, steroids small dose. We will continue her current therapy. 6. Hypertension, this is controlled, seems better now with the medications she is getting. She is off losartan and we will continue to monitor her condition. Blood pressure runs 170s most of the time; however, we will continue to monitor her conditions because the patient is not eating or drinking enough. 7. Coronary artery disease, chronic systolic diastolic heart failure. Continue current therapy. PLAN: Continue IV fluids, repeat labs in the morning and we will decrease Eliquis to 2.5 mg b.i.d. and monitor her condition clinically. The patient is seen also by Oncology, Dr. Mfofett, who is Dr. Faye's associate. We will continue to monitor the case. CURRENT MEDICATIONS: Hydralazine 100 mg 3 times a day; clonidine p.r.n.; Dilaudid 8 mg b.i.d. for back pain; DuoNeb; Eliquis 2.5 b.i.d.; Flonase; Humalog 5 units before meals, however, she is not eating; Imdur 60 mg p.o. daily; Levemir, she is getting 30 units b.i.d. The patient wants back to [facility]. We will monitor her mental status, she is on 150 b.i.d. Norvasc 10 mg once a day, Patanol eyedrops, Protonix 20 IV twice a day, Remeron started 30 mg p.o. at bedtime, Singulair 10 mg once a day, IV fluids, Solu-Medrol 20 IV, Toprol-XL 100 mg p.o. daily, Tylenol p.r.n., Zofran p.r.n. We will continue current therapy. The patient is a high-risk patient with multiple comorbid illnesses including cardiopulmonary and renal active problems. We will continue to monitor her conditions. Probably, we will see her in the morning, repeat labs in the morning, monitor her kidney functions and we may consider readmitting her to medical floor for her continuation of medical therapy as well as getting colonoscopy done. Elroy Florian MD [facility] # [id number]
--- NOTE | 2017-09-10 17:39 | PN ---
DATE: 09/10/2017 SUBJECTIVE: The patient is seen lying in bed. She is awake. She is alert. She feels better, she reports. She ate. She denies any pain. She denies any shortness of breath. PHYSICAL EXAMINATION: GENERAL: Obese elderly lady, lying in bed. VITAL SIGNS: Blood pressure 138/68, heart rate 82, respiratory rate 18, temperature 99.9 yesterday. HEENT: Normocephalic, atraumatic, positive pallor. NECK: Supple, no JVD. LUNGS: Bilateral equal air entry, bilateral equal expansion. CARDIAC: S1 and S2, regular rate and rhythm, no murmur, no rub. ABDOMEN: Obese, distended, soft, bowel sounds present, positive colostomy. EXTREMITIES: No lower extremity edema. INTAKE AND OUTPUT: 750/400? LABORATORY DATA: WBC 10, hemoglobin 9.4, hematocrit 32, platelets 276. Sodium 144, potassium 4.5, chloride 104, CO2 of 35, BUN 99, creatinine 3.8, glucose 89, calcium 9.3, AST 28, ALT 38, albumin 3.0. CURRENT MEDICATIONS: Apresoline, Catapres, Dilaudid, DuoNeb, Flonase, normal saline, heparin 800 units per hour, insulin, Imdur, Levemir, Lyrica, mag oxide, Norvasc, Protonix, Remeron, half normal saline at 100, Toprol-XL, Tylenol, Zofran. ASSESSMENT: 1. Acute kidney injury superimposed on chronic kidney disease stage III, is at worsening renal function. ? Largely prerenal azotemia plus. Angiotensin receptor joseph usage? 2. Recent pulmonary edema. 3. Morbid obesity. 4. Sleep apnea. 5. Xzh-opkeilh-etuggeccl diabetes mellitus. 6. Hypertension. 7. History of rectal cancer, partial colectomy, colostomy. PLAN: 1. Agree with fluid resuscitation. 2. The patient is off ARB for the last 2 days. 3. The patient is not on Lasix. 4. Avoid nephrotoxins. 5. Low-grade fever. Monitor for further fevers and leucocytosis. Kristine Archibald MD [facility] # [id number]
[2017-09-10] MEDS ORDERED: Heparin25000 units/250ml 1/2NS 25,000 UNITS/250 ML BAG IV SCH (22:30)
--- NOTE | 2017-09-11 06:45 | PN ---
DATE: 09/08/2017 REFERRING PHYSICIAN: Elroy Florian MD SUBJECTIVE: Patient is lying in the bed, head at 45 degrees, does not feel well, depressed and down. Sister is at bedside, supposed to go home. Medically feels okay. No cough. No sputum production. No nausea. No vomiting. No diarrhea. No leg pain, no leg swelling. PHYSICAL EXAMINATION: GENERAL: In no acute distress. VITAL SIGNS: Temperature 98, heart rate 91, respiratory rate is 18, blood pressure 165/72, pulse ox 93% on nasal cannula. HEENT: Moist mucous membranes. Crowded airway. NECK: Supple. No JVD. LUNGS: Has fair airflow with rhonchus. HEART: S1 and S2. ABDOMEN: Soft, nontender, nondistended. Colostomy working well. EXTREMITIES: No edema. NEUROLOGICAL: Awake and alert. Follows simple commands. MEDICATIONS: She is on hydralazine 100 mg 3 times a day, clonidine 0.2 mg q. 6 hours p.r.n., Cozaar 100 mg daily, Dilaudid 8 mg p.o. twice a day p.r.n., DuoNeb q. 6 hours, Eliquis 5 mg twice a day, Flonase one spray to each nostril daily, insulin coverage, Imdur 60 mg daily, potassium 10 mEq daily, Levemir 30 units subcu twice a day, Norvasc 10 daily, Nystatin 5 mL twice a day, Protonix 20 mg twice a day, Remeron mg at bedtime, Singulair 10 mg at bedtime, Solu-Medrol 20 mg daily, Toprol XL 100 mg daily, Tylenol p.r.n., Zofran p.r.n. LABORATORY DATA: Reviewed and it shows blood sugar this morning 225. IMPRESSION AND PLAN: Chronic obstructive lung disease, may have sleep apnea syndrome, chronic pain syndrome, anxiety disorder, history of colorectal cancer requiring laparotomy and colostomy, diabetes. From a Pulmonary point of view, doing okay. Keep head at 45 degrees, encourage CPAP use, bronchodilator, gastric prophylaxis, SCD to lower extremities, fall precautions. Will benefit from full therapy. Pamela Ayala MD [facility] # [id number]
== END 2017-09-10 14:40 | disposition short-term general hospital (02) | DRG 291 ==
LOC: TRCU 18:29
PROVIDERS: ADMIT Internal Medicine; ATTEND Internal Medicine
PROC: F07Z9FZ Gait Training/Functional Ambulation Treatment using Assistive, Adaptive, Supportive or Protective Equipment (ICD-10-PCS; principal; 2017-09-04)
PROC: F07M6ZZ Therapeutic Exercise Treatment of Musculoskeletal System - Whole Body (ICD-10-PCS; 2017-09-04)
PROC: F08Z0ZZ Bathing/Showering Techniques Treatment (ICD-10-PCS; 2017-09-04)
PROC: F08Z1ZZ Dressing Techniques Treatment (ICD-10-PCS; 2017-09-04)
PROC: F08Z2ZZ Grooming/Personal Hygiene Treatment (ICD-10-PCS; 2017-09-04)
DX: I13.0 Hypertensive heart and chronic kidney disease with heart failure and stage 1 through stage 4 chronic kidney disease, or unspecified chronic kidney disease (principal); J18.9 Pneumonia, unspecified organism; J96.91 Respiratory failure, unspecified with hypoxia; I50.42 Chronic combined systolic (congestive) and diastolic (congestive) heart failure; J44.0 Chronic obstructive pulmonary disease with (acute) lower respiratory infection; J44.1 Chronic obstructive pulmonary disease with (acute) exacerbation; N17.9 Acute kidney failure, unspecified; N39.0 Urinary tract infection, site not specified; Z68.43 Body mass index [BMI] 50.0-59.9, adult; D68.59 Other primary thrombophilia; E87.2 Acidosis; I27.20 Pulmonary hypertension, unspecified; J31.0 Chronic rhinitis; K31.84 Gastroparesis; K59.00 Constipation, unspecified; N18.3 Chronic kidney disease, stage 3 (moderate); R62.7 Adult failure to thrive; T50.2X5A Adverse effect of carbonic-anhydrase inhibitors, benzothiadiazides and other diuretics, initial encounter; Z79.01 Long term (current) use of anticoagulants; Z79.4 Long term (current) use of insulin; Z85.048 Personal history of other malignant neoplasm of rectum, rectosigmoid junction, and anus; Z86.711 Personal history of pulmonary embolism; Z86.718 Personal history of other venous thrombosis and embolism; Z87.440 Personal history of urinary (tract) infections; Z87.442 Personal history of urinary calculi; D50.9 Iron deficiency anemia, unspecified; D63.8 Anemia in other chronic diseases classified elsewhere; E11.22 Type 2 diabetes mellitus with diabetic chronic kidney disease; E11.43 Type 2 diabetes mellitus with diabetic autonomic (poly)neuropathy; E66.01 Morbid (severe) obesity due to excess calories; E78.00 Pure hypercholesterolemia, unspecified; E78.5 Hyperlipidemia, unspecified; E87.6 Hypokalemia; F32.89 Other specified depressive episodes; F40.240 Claustrophobia; F51.02 Adjustment insomnia; G47.33 Obstructive sleep apnea (adult) (pediatric); G89.4 Chronic pain syndrome; I25.10 Atherosclerotic heart disease of native coronary artery without angina pectoris; Z90.49 Acquired absence of other specified parts of digestive tract; Z91.19 Patient's noncompliance with other medical treatment and regimen; Z92.21 Personal history of antineoplastic chemotherapy; Z92.3 Personal history of irradiation; Z93.3 Colostomy status; Z95.5 Presence of coronary angioplasty implant and graft

== ENCOUNTER 2017-09-10 14:40 | Inpatient (IN) | payer MEDICARE, MEDICAID, OTHER ==
[2017-09-10 14:47] VITALS: BMI 48.7
--- NOTE | 2017-09-10 15:12 | ED PDOC ---
Arrival/HPI - General Chief Complaint: Female Genitourinary Time Seen by Provider: 09/10/17 14:43 Historian: Patient - History of Present Illness Narrative History of Present Illness (Text): 09/10/17 15:02 61yo female morbidly obese female with PMhx of Diabetes, hypertension, Cervical CA, Pulmonary edema referred to ED from TCU for Acute kidney failure. Patient states she has the urgency to urinate, but has not been able to urinate since yesterday. She denies chest pain, dysuria, nausea, vomiting, dizziness, abdominal pain, back pain, any other complaint. Past Medical History - Provider Review Nursing Documentation Reviewed: Yes - Infectious Disease Hx of Infectious Diseases: None - Tetanus Immunization Tetanus Immunization: Unknown - Cardiac Hx Cardiac Disorders: Yes Hx Congestive Heart Failure: Yes Hx Hypertension: Yes - Pulmonary Hx Respiratory Disorders: Yes Hx Pulmonary Edema: Yes - Neurological Hx Neurological Disorder: Yes Hx Dizziness: Yes - HEENT Hx Macular Degeneration: No - Renal Hx Renal Disorder: Yes Hx Kidney Stones: Yes - Endocrine/Metabolic Hx Endocrine Disorders: Yes Hx Diabetes Mellitus Type 2: Yes - Hematological/Oncological Hx Blood Disorders: No Hx Blood Transfusions: No Hx Blood Transfusion Reaction: No - Integumentary Hx Dermatological Disorder: No - Musculoskeletal/Rheumatological Hx Musculoskeletal Disorders: No Hx Falls: No - Gastrointestinal Hx Gastrointestinal Disorders: Yes (RECTAL CA WITH COLOSTOMY,GI BLEED) - Genitourinary/Gynecological Hx Genitourinary Disorders: Yes (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,UTI) - Psychiatric Hx Emotional Abuse: No Hx Physical Abuse: No Hx Substance Use: No - Surgical History Hx Appendectomy: Yes Other/Comment: colostomy - Anesthesia Hx Anesthesia: Yes Hx Anesthesia Reactions: No Hx Malignant Hyperthermia: No - Suicidal Assessment Feels Threatened In Home Enviroment: No Family/Social History - Physician Review Nursing Documentation Reviewed: Yes Family/Social History: Unknown Family HX Smoking Status: Never Smoked Hx Alcohol Use: Yes Frequency of alcohol use: Socially Hx Substance Use: No Hx Substance Use Treatment: No Allergies/Home Meds Allergies/Adverse Reactions: Allergies No Known Allergies Allergy (Verified 09/10/17 14:43) Home Medications: Home Meds Medication Instructions Recorded Confirmed ALPRAZolam [Xanax] 0.25 mg PO Q8 PRN 08/27/14 01/12/16 Review of Systems - Physician Review All systems were reviewed & negative as marked: Yes - Review of Systems Constitutional: Normal, Other (Morbidly obese) Eyes: Normal ENT: Normal Respiratory: Normal Cardiovascular: Normal Gastrointestinal: Normal Genitourinary Female: Normal Musculoskeletal: Normal Skin: Normal Neurological: Normal Endocrine: Normal Hemo/Lymphatic: Normal Psychiatric: Normal Physical Exam Vital Signs Temp Pulse Resp BP Pulse Ox 09/10/17 14:46 98.5 F 97 H 19 110/58 L 98 Medical Decision Making ED Course and Treatment: 09/10/17 15:14 61yo female referred to ED from TCU for admission secondary to SHELBI Pt reports urinary retention in ED. Marrero was inserted and 300l urine noted. Lab from TCU was reviewed and Cr of 3.8 was noted from todays lab. Case was DW Dr. Florian and he recommends admission of the patient and consult of Dr.s Guerrero, [place], and Lucy. Disposition/Present on Arrival - Present on Arrival Any Indicators Present on Arrival: No History of DVT/PE: No History of Uncontrolled Diabetes: No Urinary Catheter: No History of Decub. Ulcer: No History Surgical Site Infection Following: None - Disposition Have Diagnosis and Disposition been Completed?: Yes Diagnosis: Pulmonary edema, Renal failure (ARF), acute on chronic Disposition: HOSPITALIZED Disposition Time: 15:10 Patient Problems: Current Active Problems Problem Status Onset Pulmonary edema Acute Renal failure (ARF), acute on chronic Acute Condition: FAIR Referrals: Elroy Florian MD [Primary Care Provider] - Follow up with primary Forms: Hemarina (Guamanian)
[2017-09-10 16:19] LABS: PH,URINE 5.5 (4.7-8.0); URINE APPEARANCE TURBID (CLEAR); URINE BILIRUBIN NEGATIVE (NEGATIVE); URINE BLOOD NEGATIVE (NEGATIVE); URINE COLOR YELLOW (YELLOW); URINE GLUCOSE (UA) NEGATIVE (NEGATIVE); URINE LEUKOCYTE ESTERASE NEGATIVE Leu/uL (NEGATIVE); URINE PROTEIN 100 mg/dL (<30 mg/dL); URINE UROBILINOGEN 0.2 E.U./dL (<1 E.U./dL)
[2017-09-10 16:28] LABS: URINE BACTERIA FEW (NEG); URINE RBC NEGATIVE /hpf (0-2)
[2017-09-10 16:29] LABS: URINE HYALINE CAST 0 - 2 /hpf; URINE WBC 0 - 2 /hpf (0-6)
[2017-09-10] MEDS ORDERED: Sodium Chloride 0.9% 100 ML IV SCH (20:15)
[2017-09-11] MEDS: Albuterol-Ipratrop 3 mg / 0.5 (3 ml) UD IH SCH ×4 (01:26→20:02)
[2017-09-11] MEDS: Sodium Chloride 0.9% 1,000 ML IV SCH ×3 (04:45→12:55)
--- NOTE | 2017-09-11 05:09 | CON ---
DATE: 09/10/2017 PULMONARY CONSULTATION REFERRING PHYSICIAN: Elroy Florian MD REASON FOR CONSULTATION: Chronic lung disease, has some cough, suspected sleep apnea syndrome, renal failure. HISTORY OF PRESENT ILLNESS: This is a 61-year-old female well known to me, originally admitted to [facility] side of the hospital at [facility] with exacerbation of chronic lung disease with cough, shortness of breath, sputum production, respiratory failure with CO2 retention, requiring noninvasive ventilation. She was successfully treated, improved, and sent to TICU for continued care. While in TICU, clinically, I think she became depressed. P.o. intake was very low. She was not drinking enough. Seen by Dr. Florian today in TICU. Lab shows acute renal failure. She is sent to emergency room where she is being admitted. She has a very poor appetite, not eating well, not drinking well. Also started having some cough and sputum. No nausea, no vomiting, no diarrhea. Decreased urine output. No leg pain or leg swelling. PAST MEDICAL HISTORY: Morbid obesity, hypertension, pulmonary hypertension, hyperlipidemia, may have sleep apnea syndrome, coronary artery disease, colorectal cancer requiring laparotomy and colostomy, status post respiratory failure with CO2 retention. ALLERGIES: NONE KNOWN. SOCIAL HISTORY: Nonsmoker, nondrinker. FAMILY HISTORY: No significant cardiopulmonary disease reported. MEDICATIONS: She is on hydralazine 100 mg three times a day, Catapres 0.2 mg every 6 hours p.r.n., Dilaudid 8 mg p.o. twice a day p.r.n., DuoNeb every 6 hours, Eliquis 2.5 mg twice a day, Flonase one spray each nostril daily, insulin coverage, Imdur 60 mg daily, Levemir 30 units subcu twice a day, Lyrica 150 mg twice a day, magnesium oxide 400 mg twice a day, Norvasc 10 mg daily, Protonix 40 mg daily, Remeron 30 mg at bedtime, Singulair 10 mg daily, IV fluid half-normal saline 100 mL per hour, Solu-Medrol mg daily, Toprol XL 100 mg daily, Tylenol p.r.n., Zofran p.r.n. REVIEW OF SYSTEMS: No headache, no rhinitis. Has some cough and sputum production. No nausea, no vomiting. Has a very poor appetite. No abdominal pain. Colostomy bag working okay. No leg pain or leg swelling. Decreased urine output. PHYSICAL EXAMINATION: GENERAL: Lying in the bed. VITAL SIGNS: Temperature is 98, heart rate is 88, respiratory rate is 18, blood pressure 114/56, pulse ox 98% on nasal cannula. HEENT: Moist mucous membrane. Crowded airway. Mallampati score is 4. NECK: Supple. No JVD. LUNGS: Have a scattered rhonchi. HEART: S1 and S2. ABDOMEN: Obese, soft. Colostomy bag working well. EXTREMITIES: There is no edema. NEUROLOGIC: Awake, alert, follows simple commands. LABORATORY DATA: Shows hemoglobin 9.4, hematocrit 31.9, WBC 10.1, platelet is 276. Sodium 144, potassium 4.5, chloride 104, bicarbonate 35, BUN 99, creatinine 3.8, glucose is 89, calcium is 9.3. AST 28, ALT 38, alk phos is 97. Albumin is 3.0. Urinalysis shows wbc's 0 to 2, rbc's few. IMPRESSION AND PLAN: Acute renal failure, chronic lung disease, sleep apnea syndrome, history of deep venous thrombosis, pulmonary embolism in the remote past, anxiety disorder, colorectal cancer requiring laparotomy and colostomy, diabetes, depression, morbid obesity. Spoke to family at bedside. All the questions answered. Will continue IV fluid, inhaled bronchodilator. Send urine for culture. Avoid nephrotoxic drugs. Out of bed to chair if possible. Pain management. Gastric prophylaxis. Follow up labs in the morning. Thank you and we will follow with you. Pamela Ayala MD
[2017-09-11] MEDS: Pantoprazole 20 mg EC Tab PO SCH ×2 (06:34→18:16)
[2017-09-11 07:27] LABS: BASO # 0.03 K/mm3 (0.0-2.0); BASO % 0.3 % (0.0-3.0); EOS # 0.2 (0.0-0.7); EOS % 1.9 % (1.5-5.0); GRAN # 5.99 (1.4-6.5); GRAN % 60.3 % (50.0-68.0); HEMOGLOBIN 9.8 g/dL (12.0-16.0); LYMPH # 3.2 (1.2-3.4); LYMPH % 31.9 % (22.0-35.0); MEAN CELL VOLUME 87.4 fl (80.0-105.0); MEAN CORPUSCULAR HEMOGLOBIN 26.3 pg (25.0-35.0); MEAN CORPUSCULAR HGB CONC 30.2 g/dl (31.0-37.0); MEAN PLATELET VOLUME 11.2 fl (7.0-11.0); MONO # 0.6 (0.1-0.6); MONO % 5.6 % (1.0-6.0); RBC 3.72 10^6/uL (3.5-6.1); RED CELL DISTRIBUTION WIDTH 15.5 % (11.5-14.5); WHITE BLOOD COUNT 9.9 10^3/ul (4.5-11.0)
[2017-09-11] MEDS ORDERED: Metoprolol Succinate 25 mg XL Tab PO SCH (08:00)
[2017-09-11 08:01] LABS: ALB/GLOB RATIO 0.9 (1.1-1.8); ALBUMIN 3.1 g/dL (3.0-4.8)
--- NOTE | 2017-09-11 09:02 | CON ---
DATE: 09/10/2017 REASON FOR CONSULTATION: Followup cardiac evaluation, admitted due to swelling of body and acute kidney injury, history of coronary artery disease, history of stent in the past. BRIEF CLINICAL HISTORY: This is a 61-year-old female with past medical history of morbid obesity, morbidly obese female, weight more than 240 pounds, body mass index kg/m2, diabetes, hypertension, cervical cancer, pulmonary edema, transferred from TCU because of worsening renal insufficiency and pulmonary edema. PAST MEDICAL HISTORY: Significant for morbid obesity, diabetes, hypertension, hyperlipidemia, colorectal cancer with colostomy bag, who was in transitional care unit and very abnormal labs, so the patient was transferred to ER and admitted to . Past history is also significant for coronary artery disease, history of stent in the past, history of CHF, hypertension, diabetes, hyperlipidemia, colorectal cancer 5 years ago and had colon surgery and colostomy, history of arthritis, history of urinary tract infection; history of CKD disease, stage II to III, now with acute kidney failure, hypertension, hyperlipidemia. ALLERGIES: NO KNOWN DRUG ALLERGIES. SOCIAL HISTORY: Denies any history of alcohol abuse. CURRENT MEDICATIONS: The patient at home is taking Dilaudid, Zofran, , magnesium, isosorbide nitrate, insulin, hydralazine, amlodipine, and prednisone. RECENT CARDIAC WORKUP: As follows, the patient had cardiac catheterization on 03/17/2014 and had PTCA of obtuse margin 1 done with a bare-metal stent on 03/17/2014, history of DVT and PE, status post TPA, history of Xarelto for DVT and PE, was on Xarelto at one point, and a cardiac catheterization was done by Dr. Barry on 03/17/2014 and with circumflex bare-metal stent was placed. At that time, bare-metal was placed because surgical intervention was planned at that time by plunket nurse-oncologist surgeon. Recent echocardiography was done on 08/05/2015 that showed ejection fraction normal, normal wall motion, no pulmonary hypertension at that time, ejection fraction 52%. The patient had a repeat echocardiography done on 09/01/2017 that showed a normal LV size, ejection fraction normal, grade 2 diastolic dysfunction, no mitral valve regurgitation, no tricuspid regurgitation, RV systolic pressure 25. EKG showed normal sinus, no acute ST-T changes noted. PHYSICAL EXAMINATION VITAL SIGNS: Height of the patient 5 feet 2 inches, weight of the patient 240 pounds, his body mass index kg/m2. Temperature afebrile, heart rate 80, blood pressure 114/56. HEENT: PERRLA. Extraocular muscles intact. NECK: Supple. No carotid bruit. No thyromegaly. CHEST: Clear to auscultation. HEART: S1 and S2 regular. ABDOMEN: Soft. EXTREMITIES: Clubbing and cyanosis negative. LABORATORY DATA: Blood workup as follows, WBC 10.1, hemoglobin , hematocrit 31.9, platelet count 276. Chemistry shows sodium 144, potassium 4.5, chloride 104, carbon dioxide 35, anion gap of 9, BUN 90, creatinine 3.8. IMPRESSION: Acute kidney injury. The patient runs baseline creatinine of 1.7, it has jumped to 3.8, morbid obesity, diabetes, hypertension, hyperlipidemia, preserved left ventricular function, coronary artery disease, status post angioplasty in 2013 with obtuse marginal 1 with bare-metal stent, colorectal cancer, status post colostomy. RECOMMENDATION: We will start IV fluid, monitor electrolytes, repeat blood workup tomorrow. We will follow with you. Thank you, Dr. Florian, for providing us the opportunity in taking care of the patient, Pedro Guevara. Pamela Guerrero MD
[2017-09-11] MEDS: Fluticasone Nasal 50 mcg/Spray NS SCH (11:07)
--- NOTE | 2017-09-11 15:21 | CON ---
DATE: 09/11/2017 Date of readmission back to the hospital is 09/10/2017. Date of consultation is 09/11/2017. The patient admitted for Dr. Florian. REFERRING MD: Dr. Florian. REASON FOR CONSULTATION: Evaluation of a patient who has been followed by us during the present hospitalization TCU stay and now back to the acute care part of the hospital because of worsening BUN and creatinine in the setting of diuretic therapy for treatment of pulmonary edema. HISTORY OF PRESENT ILLNESS: The patient is a 61-year-old [place]ian female with a history of morbid obesity; history of NIDDM; ASHD, status post PTCA stent; hypertension; history of chronic kidney disease stage 3 with a baseline creatinine in the 1.2 range and a baseline BUN in the 27 range. History of recent pulmonary edema. History of SUMMER. History of rectal cancer, status post partial colectomy with a colostomy. History of hyperlipidemia, history of recent pneumonia, history of anemia secondary to chronic kidney disease, history of secondary hyperparathyroidism and history of a recent urinary tract infection. The patient was transferred back from the TCU to acute care because of a BUN of 106 and a creatinine of 4.1. Again, her baseline BUN is in the mid to upper 20 range with a baseline creatinine in the lower 1 range. We were asked to evaluate the patient regarding her elevated BUN and creatinine. PAST MEDICAL HISTORY: Significant for that of obesity, NIDDM, ASHD, history of stent and PTCA, history of hypertension, chronic kidney disease stage 3, pulmonary edema, SUMMER, rectal cancer, status post partial colectomy with colostomy, hyperlipidemia, anemia secondary to chronic kidney disease, history of secondary hyperparathyroidism, past history of UTI and pneumonia. CURRENT MEDICATIONS: Include that of Dilaudid, DuoNeb, Flonase, Imdur, Lipitor, Lyrica, Norvasc, Protonix, Singulair, normal saline 125 mL an hour, Toprol, Tylenol p.r.n. ALLERGIES: NO KNOWN ALLERGIES TO MEDICATIONS. MEDICATIONS AT HOME: Include that of hydralazine, Catapres, Norvasc, Lyrica, Protonix, Zofran, Singulair, Remeron, Toprol, mag oxide, Imdur, Humalog, Levemir, Dilaudid, Flonase, Doryx, DuoNeb and Tylenol p.r.n. SOCIAL HISTORY: No history of cigarette smoking. No history of alcohol use. FAMILY HISTORY: Mother of complications of diabetes, father had hypertension. REVIEW OF SYSTEMS: 10+ systems reviewed with the patient. All negative except for what is noted above. General: The patient states the appetite and weight have been stable. ENT: Denies any hearing or visual problems. Pulmonary: Denies any shortness of breath, but the patient is sedentary. Cardiac: History of ASHD as noted above. GI: No excessive amounts of fluid losses through her colostomy. : History of chronic kidney disease stage 3. [employer]ER: Postmenopausal. Endocrine: History of diabetes as noted above. Musculoskeletal: No complaints. Neuro: No history of CVA, TIA, seizures or syncope. Heme/onc: History of anemia, in part secondary to chronic kidney disease. Iron saturations were 23%. Psychiatric history is negative. PHYSICAL EXAMINATION: GENERAL: The patient is currently seen on 3R, sitting up in bed. She appears to be comfortable. IV fluids are infusing. She has absolutely no uremic symptoms. VITAL SIGNS: Blood pressure 152/62, temperature 98.1, respiratory rate of 19 with a pulse of 90. HEENT: Exam shows her to be normocephalic, atraumatic. Conjunctivae are pale. Sclerae are nonicteric. Pupils equal, reactive to light and accommodation. Extraocular muscles are intact. Posterior pharynx is normal. NECK: Supple. No neck vein distention. No thyromegaly. No lymphadenopathy. No bruits. CHEST: Clear to auscultation and percussion with decreased breath sounds at the bases. No rales, rhonchi or wheezing. CARDIOVASCULAR: Shows a regular rate and rhythm with distant heart sounds. No murmurs noted. No S3. No S4. No rub. ABDOMEN: Morbid obesity. Positive colostomy. Bowel sounds normal. No rebound. No guarding. No masses. BACK: No CVAT. No spinal tenderness. EXTREMITIES: Show no lower extremity edema. No cyanosis or clubbing. Diminished lower extremity pulses bilaterally. NEURO: Shows her to be alert and oriented x3 with no gross focal motor or sensory deficits noted. LABORATORY DATA AND IMAGING: Echocardiogram done on 08/31/2017 shows an ejection fraction of 53% with concentric LVH with no significant valvular pathology. Labs: CBC, white blood cell count 9.9, hemoglobin 9.8 with a platelet count of 279,000. Coags are normal. Chemistries from today showed normal electrolytes. BUN up to 106 with a creatinine of 4.1. Again, her baseline BUN is 27 with creatinine of 1.2. Glucose is 253. Calcium 9. Phosphorus mildly elevated at 5.1. Magnesium level of 2.5. Liver enzymes are normal. Albumin is 3.1. Urines from yesterday showed 2+ protein. Otherwise negative. Microbiology: Urine cultures were negative from yesterday. Blood cultures were negative from when she was on acute care. She did have Providencia, which grew out of her urine on 08/31/2017. ASSESSMENT: 1. Acute renal failure superimposed on chronic kidney disease stage 3 with significant and severe prerenal azotemia. This is likely in the setting of diuretic therapy for treatment of congestive heart failure, pulmonary edema and hypervolemia. Diuretics are currently on hold. Agree with cautious IV fluid hydration. The patient does have an ejection fraction of 53%, so she should tolerate IV fluid hydration. IV fluids have been started by Cardiology and we should continue these with close monitoring of her lab work and monitoring for any signs of hypervolemia, congestive heart failure or pulmonary edema. 2. History of chronic kidney disease stage 3, likely secondary to diabetes. 3. History of atherosclerotic heart disease, status post percutaneous transluminal coronary angioplasty stent, appears to be stable. 4. History of hypertension. Blood pressure control is acceptable on current medical therapy. At present, no role for ESTEVAN inhibitors or angiotensin receptor blockers. 5. Status post pulmonary edema hypervolemia. The patient right now is euvolemic and does not require any diuretic therapy. 6. History of obstructive sleep apnea. The patient should use the continuous positive airway pressure therapy at night. 7. History of rectal cancer, status post partial colectomy with colostomy. 8. History of hyperlipidemia, on diet and statin therapy. 9. History of anemia, likely secondary to chronic kidney disease. Iron saturations were 23% when she was in the hospital 1 week ago. 10. Secondary hyperparathyroidism with elevated phosphorus levels. The patient will start on binder therapy. PLAN: 1. Continue to monitor very strict accurate I's and O's. 2. Cautious IV fluid hydration. 3. Continue a renal diet. 4. Start the patient on binder therapy. 5. If BUN and creatinine did not improve, I will order renal imaging studies. 6. We will obtain a urine sodium, urine creatinine and urine Himanshu's stain. I expect her urine electrolytes to be consistent with renal hypoperfusion. Case discussed with the patient and her family in detail. Thank you for letting me partake and share in the care of your patient. Osman Preea MD
--- NOTE | 2017-09-11 15:44 | PN ---
DATE: 09/11/2017 REASON FOR CONSULTATION AND FOLLOWUP: Cardiac evaluation, admitted swelling of the body, acute kidney injury, history of coronary artery disease, history of stent in the past. SUBJECTIVE: The patient denies any chest pain, shortness of breath or any palpitation. OBJECTIVE: GENERAL: Not in any apparent distress. VITAL SIGNS: As follows: Temperature afebrile, heart rate , blood pressure 142/60. HEENT: PERRLA. Extraocular muscles intact. NECK: Supple. No carotid bruit or thyromegaly. CHEST: Clear to auscultation. HEART: S1, S2 regular. ABDOMEN: Soft. EXTREMITIES: Clubbing and cyanosis negative. LABORATORY DATA: WBC 9.8, hemoglobin 9.8, hematocrit 32.5, platelet count 279. Chemistry shows sodium 130, potassium 4.9, chloride 101, carbon dioxide 20, anion gap of 14, BUN , creatinine 4.1. Today, lab is pending, is not available as of yet. IMPRESSION: Acute kidney injury, morbid obesity, diabetes, hypertension, hyperlipidemia, coronary artery disease, status post stent, 4-year-old bare-metal stent. No evidence of acute myocardial infarction. Status post colostomy, chronic kidney disease, acute kidney injury, history of congestive heart failure in the past, history of deep venous thrombosis, pulmonary embolism, on Xarelto at one point. RECOMMENDATIONS: Continue IV fluids, repeat the blood workup in the morning. Today, lab is not available as of yet. Repeat the blood workup in the morning. Patient had a repeat echo, 09/01/2017 that showed LV size and ejection fraction normal, grade II diastolic dysfunction. No mitral valve regurgitation, no tricuspid regurgitation, RV systolic pressure 25. Needs blood workup today. We will repeat tomorrow. We will follow up with you. Thank you, Dr. Florian, for providing us the opportunity in taking care of patient, Pedro Guevara. Pamela Guerrero MD
[2017-09-11 15:46] LABS: CREATININE,RANDOM URINE 105 mg/dL
--- NOTE | 2017-09-11 16:11 | PN ---
DATE: 09/11/2017 PULMONARY PROGRESS NOTE REFERRING PHYSICIAN: Elroy Florian MD SUBJECTIVE: She is lying in the bed, head at 45 degrees. Night was unremarkable. Could use CPAP only for half an hour or so; claustrophobic, could not use it. Mild cough. No sputum production. No nausea. No vomiting. No diarrhea. Better urine output. Colostomy bag working well. No leg swelling. OBJECTIVE GENERAL: In no acute distress. VITAL SIGNS: Temperature is 98, heart rate 79, respiratory rate is 20, blood pressure 143/60, pulse ox 98% on 3 liters nasal cannula. HEENT: Moist mucous membrane. Crowded airway. NECK: Supple. No JVD. LUNGS: Has a fair airflow with a few rhonchi. HEART: S1 and S2. ABDOMEN: Soft, nontender, nondistended. Colostomy bag working well. EXTREMITIES: There is no edema. NEUROLOGIC: Awake, alert, follows simple command. MEDICATIONS: She is on Dilaudid 4 mg every 4 hours p.r.n., DuoNeb every 6 hours round the clock, Ecotrin 81 mg daily, Flonase one spray each nostril daily, Imdur 60 mg daily, Lipitor 40 mg daily, Lyrica 50 mg twice a day, Norvasc 10 mg daily, Protonix 40 mg daily, Singulair 10 mg daily, IV fluid normal saline 125 mL per hour, Toprol-XL 100 mg daily, Tylenol on p.r.n. basis. LABORATORY DATA: Shows hemoglobin 9.8, hematocrit 32.5, WBC 9.9, platelet is 279. Sodium 139, potassium 4.9, chloride 101, bicarbonate 29, BUN 106, creatinine 4.1, glucose 205, calcium 9, phosphorus 5.1, magnesium 2.5, AST 27, ALT 43, albumin 3.1, cholesterol is 242, TSH 0.12. IMPRESSION AND PLAN: Acute renal failure; chronic lung disease; sleep apnea syndrome; history of deep venous thrombosis; pulmonary embolism, obesity; anxiety disorder; colorectal cancer, requiring surgery; has colostomy; diabetes; depression. Continue to encourage p.o. intake, encourage BiPAP use, keep head at 45 degrees, bronchodilator, antibiotics. Recently has radiculopathy with leg pains. Continue to get her out of bed to chair. Continue IV fluids. Followup labs in the morning. Pamela Ayala MD
--- NOTE | 2017-09-11 16:12 | US ---
PROCEDURE: Ultrasound of the Kidneys HISTORY: ARF, CKD3 COMPARISON: None available. TECHNIQUE: Grayscale imaging was performed. Examination is limited due to patient body habitus and bowel gas. FINDINGS: RIGHT KIDNEY: Measures: 10.9 cm. Normal in size, contour and echogenicity. No stone, solid mass lesion or hydronephrosis visualized. LEFT KIDNEY: Measures: 10.6 cm. Normal in size, contour and echogenicity. No stone, solid mass lesion or hydronephrosis visualized. OTHER FINDINGS: None. IMPRESSION: Limited examination, no hydronephrosis or nephrolithiasis.
[2017-09-11] MEDS: Insulin Reg-LOW-Coverage SC SCH ×2 (18:16→22:22)
[2017-09-11] MEDS: Iron Complex Polysacch 150mg Cap PO SCH (18:16)
[2017-09-11] MEDS: Insulin Detemir 100 units/ml Vial (Levemir) SC SCH (18:16)
[2017-09-11] MEDS: Insulin Lispro 1 UNITS/0.01 ML SC SCH (18:17)
--- NOTE | 2017-09-11 18:55 | CP.PCM.CON ---
<Ginger Chatterjee - Last Filed: 09/11/17 18:54> History of Present Illness - History of Present Illness History of Present Illness: Seen and examined at the bedside earlier today, chart was reviewed. Request for GI consult is for anemia, history of colorectal cancer. HPI: This is a 61-year-old female with a history of anemia, rectal cancer status post partial colectomy with colostomy and mucous fistula, morbid obesity , chronic kidney disease, status post PTCA stent with history of recent pulmonary edema was transferred from U for acute kidney failure. The patient unable to urinate since Sunday. The patient was noted to have elevated BUN/ creatinine creatinine. This morning the patient is awake and alert she has a Marrero catheter and does report feeling a bit better. She reports good appetite , no nausea vomiting or abdominal pain. Her colostomy has brown soft stool a good amount and and gas. No reports of overt GI bleed. Her last colonoscopy was 2013. Found to have rectal cancer. Past medical history: Morbid obesity, [id number] diabetes, rectal cancer status post chemotherapy radiation, pulmonary edema, chronic kidney disease, hyperlipidemia, anemia, pneumonia Past surgical history: Partial colectomy with colostomy and mucous fistula, history of PTCA with stent Allergies: No known drug allergies Family history: Noncontributory this time Medications: Reviewed as per MAR Social history: No history of tobacco use, EtOH or illicit drugs ROS: Systems review took positive finding see HPI Past Patient History - Infectious Disease Hx of Infectious Diseases: None - Tetanus Immunizations Tetanus Immunization: Unknown - Past Social History Smoking Status: Never Smoked - CARDIAC Hx Cardiac Disorders: Yes Hx Congestive Heart Failure: Yes Hx Hypercholesterolemia: Yes Hx Hypertension: Yes - PULMONARY Hx Respiratory Disorders: Yes Hx Bronchitis: Yes - NEUROLOGICAL Hx Neurological Disorder: Yes Hx Dizziness: Yes - HEENT Hx Macular Degeneration: No - RENAL Hx Chronic Kidney Disease: Yes Hx Kidney Stones: Yes - ENDOCRINE/METABOLIC Hx Endocrine Disorders: Yes Hx Diabetes Mellitus Type 2: Yes - HEMATOLOGICAL/ONCOLOGICAL Hx Blood Disorders: No - INTEGUMENTARY Hx Dermatological Problems: No - MUSCULOSKELETAL/RHEUMATOLOGICAL Hx Musculoskeletal Disorders: Yes Hx Arthritis: Yes Hx Back Pain: Yes Hx Falls: No Hx Unsteady Gait: Yes (use walker) - GASTROINTESTINAL Hx Gastrointestinal Disorders: Yes (RECTAL CA WITH COLOSTOMY,GI BLEED) - GENITOURINARY/GYNECOLOGICAL Hx Genitourinary Disorders: Yes (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,UTI) - PSYCHIATRIC Hx Psychophysiologic Disorder: Yes Hx Anxiety: Yes Hx Substance Use: No - SURGICAL HISTORY Hx Surgeries: Yes Hx Appendectomy: Yes Hx Coronary Stent: Yes Other/Comment: colostomy - ANESTHESIA Hx Anesthesia: Yes Hx Anesthesia Reactions: No Hx Malignant Hyperthermia: No Meds Allergies/Adverse Reactions: Allergies Allergy/AdvReac Type Severity Reaction Status Date / Time No Known Allergies Allergy Verified 09/10/17 14:43 - Medications Medications: Current Medications Acetaminophen (Tylenol 325mg Tab) 650 mg PO Q6H PRN PRN Reason: Headache Albuterol/Ipratropium (Duoneb 3 Mg/0.5 Mg (3 Ml) Ud) 3 ml IH [id number] [facility] Last Admin: 09/11/17 13:39 Dose: Not Given Amlodipine Besylate (Norvasc) 10 mg PO DAILY [facility] Last Admin: 09/11/17 11:07 Dose: 10 mg Aspirin (Ecotrin) 81 mg PO DAILY [facility] Last Admin: 09/11/17 11:06 Dose: 81 mg Atorvastatin Calcium (Lipitor) 40 mg PO DIN JR Calcium Acetate (Phoslo) 667 mg PO WM [facility] Darbepoetin Timothy (Aranesp) 60 mcg SC ONCE ONE Stop: 09/12/17 10:01 Fluticasone Propionate (Flonase) 0 actuation NS DAILY [facility] Last Admin: 09/11/17 11:07 Dose: 1 spray Hydromorphone HCl (Dilaudid) 4 mg PO Q4H PRN PRN Reason: Pain, severe (8-10) Sodium Chloride (Sodium Chloride 0.9%) 1,000 mls @ 125 mls/hr IV .Q8H [facility] Last Admin: 09/11/17 12:55 Dose: Not Given Insulin Detemir (Levemir) 20 unit SC BID [facility] Insulin Human Lispro (Humalog) 5 units SC AC JR Insulin Human Regular (Humulin R Low) 1 units SC ACHS [facility] PRN Reason: Protocol Isosorbide Mononitrate (Imdur) 60 mg PO DAILY [facility] Last Admin: 09/11/17 11:06 Dose: 60 mg Metoprolol Succinate (Toprol Xl) 100 mg PO BRK JR Montelukast Sodium (Singulair) 10 mg PO HS [facility] Last Admin: 09/10/17 22:21 Dose: 10 mg Pantoprazole Sodium (Protonix Ec Tab) 20 mg PO 0600,1600 [facility] Last Admin: 09/11/17 06:34 Dose: 20 mg Polysaccharide Iron Complex (Ferrex-150) 150 mg PO DAILY [facility] Pregabalin (Lyrica) 50 mg PO BID [facility] Last Admin: 09/11/17 11:06 Dose: 50 mg Physical Exam - Constitutional Appears: No Acute Distress - Head Exam Head Exam: NORMOCEPHALIC - Eye Exam Eye Exam: Normal appearance. absent: Scleral icterus - ENT Exam ENT Exam: Mucous Membranes Moist - Respiratory Exam Respiratory Exam: Decreased Breath Sounds, NORMAL BREATHING PATTERN. absent: Wheezes, Respiratory Distress - Cardiovascular Exam Cardiovascular Exam: +S1, +S2 - GI/Abdominal Exam GI & Abdominal Exam: Soft. absent: Guarding, Rebound, Tenderness Additional comments: abdomen is obese, positive colostomy with brown soft stool no blood there is air in the colostomy bag - Extremities Exam Extremities exam: Positive for: pedal edema, pedal pulses present. Negative for : calf tenderness - Neurological Exam Neurological exam: Alert, Oriented x3 - Skin Skin Exam: Dry, Warm Results - Vital Signs Recent Vital Signs: Last Vital Signs Temp 98.1 F 09/11/17 12:00 Pulse 90 09/11/17 12:00 Resp 19 09/11/17 12:00 BP 152/62 H 09/11/17 12:00 Pulse Ox 98 09/11/17 05:48 - Labs Result Diagrams: 09/11/17 07:00 09/11/17 07:00 Labs: Laboratory Results - last 24 hr 09/11/17 09/11/17 09/11/17 07:00 07:00 07:00 WBC 9.9 RBC 3.72 Hgb 9.8 L Hct 32.5 L MCV 87.4 MCH 26.3 MCHC 30.2 L RDW 15.5 H Plt Count 279 MPV 11.2 H Gran % 60.3 Lymph % (Auto) 31.9 [place] % (Auto) 5.6 Eos % (Auto) 1.9 Baso % (Auto) 0.3 Gran # 5.99 Lymph # (Auto) 3.2 [place] # (Auto) 0.6 Eos # (Auto) 0.2 Baso # (Auto) 0.03 Sodium 139 Potassium 4.9 Chloride 101 Carbon Dioxide 29 Anion Gap 14 BUN 106 H Creatinine 4.1 H Est GFR ( Amer) 13 Est GFR (Non-Af Amer) 11 POC Glucose (mg/dL) Random Glucose 253 H Hemoglobin A1c 7.5 H Calcium 9.0 Phosphorus 5.1 H Magnesium 2.5 H Total Bilirubin 0.1 L AST 27 ALT 43 Alkaline Phosphatase 98 Total Protein 6.5 Albumin 3.1 Globulin 3.4 Albumin/Globulin Ratio 0.9 L Triglycerides 161 H Cholesterol 242 H LDL Cholesterol Direct 136 H HDL Cholesterol 48 TSH 3rd Generation Urine Eosinophils Ur Random Creatinine Ur Random Sodium 09/11/17 09/11/17 09/11/17 07:00 08:10 11:40 WBC RBC Hgb Hct MCV MCH MCHC RDW Plt Count MPV Gran % Lymph % (Auto) [place] % (Auto) Eos % (Auto) Baso % (Auto) Gran # Lymph # (Auto) [place] # (Auto) Eos # (Auto) Baso # (Auto) Sodium Potassium Chloride Carbon Dioxide Anion Gap BUN Creatinine Est GFR ( Amer) Est GFR (Non-Af Amer) POC Glucose (mg/dL) 205 H 328 H Random Glucose Hemoglobin A1c Calcium Phosphorus Magnesium Total Bilirubin AST ALT Alkaline Phosphatase Total Protein Albumin Globulin Albumin/Globulin Ratio Triglycerides Cholesterol LDL Cholesterol Direct HDL Cholesterol TSH 3rd Generation 0.12 L Urine Eosinophils Ur Random Creatinine Ur Random Sodium 09/11/17 09/11/17 09/11/17 15:10 15:10 16:30 WBC RBC Hgb Hct MCV MCH MCHC RDW Plt Count MPV Gran % Lymph % (Auto) [place] % (Auto) Eos % (Auto) Baso % (Auto) Gran # Lymph # (Auto) [place] # (Auto) Eos # (Auto) Baso # (Auto) Sodium Potassium Chloride Carbon Dioxide Anion Gap BUN Creatinine Est GFR ( Amer) Est GFR (Non-Af Amer) POC Glucose (mg/dL) 273 H Random Glucose Hemoglobin A1c Calcium Phosphorus Magnesium Total Bilirubin AST ALT Alkaline Phosphatase Total Protein Albumin Globulin Albumin/Globulin Ratio Triglycerides Cholesterol LDL Cholesterol Direct HDL Cholesterol TSH 3rd Generation Urine Eosinophils Negative Ur Random Creatinine 105 Ur Random Sodium 30 Assessment & Plan - Assessment and Plan (Free Text) Assessment: Assessment: Acute on chronic renal failure Rectal carcinoma s/p chemo radiation w/ anterior resection, transverse colostomy and closure of mucous fistula Pulmonary hypertension Morbid Obesity DM Anemia H/O PE PLAN: diet as tolerated continue PPI, on Protonix 20 mg BID monitor H/H and overt GI bleeding On iron supplement as per renal, cardiology and pulmonary Would benefit colonoscopy at some point when patient is optimized , recent respiratory failure and history of pulmonary hypertension. Thank you for this consult and follow us to participate in your patient's care, further recommendations based upon clinical course. Seen and discussed w/ Dr. Benitez. <Gita Benitez V - Last Filed: 09/11/17 23:33> Meds - Medications Medications: Current Medications Acetaminophen (Tylenol 325mg Tab) 650 mg PO Q6H PRN PRN Reason: Headache Albuterol/Ipratropium (Duoneb 3 Mg/0.5 Mg (3 Ml) Ud) 3 ml IH [id number] [facility] Last Admin: 09/11/17 20:02 Dose: 3 ml Amlodipine Besylate (Norvasc) 10 mg PO DAILY [facility] Last Admin: 09/11/17 11:07 Dose: 10 mg Aspirin (Ecotrin) 81 mg PO DAILY [facility] Last Admin: 09/11/17 11:06 Dose: 81 mg Atorvastatin Calcium (Lipitor) 40 mg PO DIN [facility] Last Admin: 09/11/17 18:19 Dose: 40 mg Calcium Acetate (Phoslo) 667 mg PO WM [facility] Last Admin: 09/11/17 18:16 Dose: 667 mg Darbepoetin Timothy (Aranesp) 60 mcg SC ONCE ONE Stop: 09/12/17 10:01 Enoxaparin Sodium (Lovenox) 30 mg SC DAILY [facility] Fluticasone Propionate (Flonase) 0 actuation NS DAILY [facility] Last Admin: 09/11/17 11:07 Dose: 1 spray Hydromorphone HCl (Dilaudid) 4 mg PO Q4H PRN PRN Reason: Pain, severe (8-10) Last Admin: 09/11/17 20:05 Dose: 4 mg Sodium Chloride (Sodium Chloride 0.9%) 1,000 mls @ 125 mls/hr IV .Q8H [facility] Last Admin: 09/11/17 12:55 Dose: Not Given Insulin Detemir (Levemir) 20 unit SC BID [facility] Last Admin: 09/11/17 18:16 Dose: 20 unit Insulin Human Lispro (Humalog) 5 units SC AC [facility] Last Admin: 09/11/17 18:17 Dose: 5 units Insulin Human Regular (Humulin R Low) 1 units SC ACHS [facility] PRN Reason: Protocol Last Admin: 09/11/17 22:22 Dose: Not Given Isosorbide Mononitrate (Imdur) 60 mg PO DAILY [facility] Last Admin: 09/11/17 11:06 Dose: 60 mg Metoprolol Succinate (Toprol Xl) 100 mg PO BRK [facility] Montelukast Sodium (Singulair) 10 mg PO HS [facility] Last Admin: 09/11/17 21:15 Dose: 10 mg Pantoprazole Sodium (Protonix Ec Tab) 20 mg PO 0600,1600 [facility] Last Admin: 09/11/17 18:16 Dose: 20 mg Polysaccharide Iron Complex (Ferrex-150) 150 mg PO DAILY [facility] Last Admin: 09/11/17 18:16 Dose: 150 mg Pregabalin (Lyrica) 50 mg PO BID [facility] Last Admin: 09/11/17 18:16 Dose: 50 mg Results - Vital Signs Recent Vital Signs: Last Vital Signs Temp 98.2 F 09/11/17 18:00 Pulse 98 H 09/11/17 18:00 Resp 15 09/11/17 18:00 BP 161/65 H 09/11/17 18:00 Pulse Ox 98 09/11/17 05:48 - Labs Result Diagrams: 09/11/17 07:00 09/11/17 07:00 Labs: Laboratory Results - last 24 hr 09/11/17 09/11/17 09/11/17 07:00 07:00 07:00 WBC 9.9 RBC 3.72 Hgb 9.8 L Hct 32.5 L MCV 87.4 MCH 26.3 MCHC 30.2 L RDW 15.5 H Plt Count 279 MPV 11.2 H Gran % 60.3 Lymph % (Auto) 31.9 [place] % (Auto) 5.6 Eos % (Auto) 1.9 Baso % (Auto) 0.3 Gran # 5.99 Lymph # (Auto) 3.2 [place] # (Auto) 0.6 Eos # (Auto) 0.2 Baso # (Auto) 0.03 Sodium 139 Potassium 4.9 Chloride 101 Carbon Dioxide 29 Anion Gap 14 BUN 106 H Creatinine 4.1 H Est GFR ( Amer) 13 Est GFR (Non-Af Amer) 11 POC Glucose (mg/dL) Random Glucose 253 H Hemoglobin A1c 7.5 H Calcium 9.0 Phosphorus 5.1 H Magnesium 2.5 H Total Bilirubin 0.1 L AST 27 ALT 43 Alkaline Phosphatase 98 Total Protein 6.5 Albumin 3.1 Globulin 3.4 Albumin/Globulin Ratio 0.9 L Triglycerides 161 H Cholesterol 242 H LDL Cholesterol Direct 136 H HDL Cholesterol 48 TSH 3rd Generation Urine Eosinophils Ur Random Creatinine Ur Random Sodium 09/11/17 09/11/17 09/11/17 07:00 08:10 11:40 WBC RBC Hgb Hct MCV MCH MCHC RDW Plt Count MPV Gran % Lymph % (Auto) [place] % (Auto) Eos % (Auto) Baso % (Auto) Gran # Lymph # (Auto) [place] # (Auto) Eos # (Auto) Baso # (Auto) Sodium Potassium Chloride Carbon Dioxide Anion Gap BUN Creatinine Est GFR ( Amer) Est GFR (Non-Af Amer) POC Glucose (mg/dL) 205 H 328 H Random Glucose Hemoglobin A1c Calcium Phosphorus Magnesium Total Bilirubin AST ALT Alkaline Phosphatase Total Protein Albumin Globulin Albumin/Globulin Ratio Triglycerides Cholesterol LDL Cholesterol Direct HDL Cholesterol TSH 3rd Generation 0.12 L Urine Eosinophils Ur Random Creatinine Ur Random Sodium 09/11/17 09/11/17 09/11/17 15:10 15:10 16:30 WBC RBC Hgb Hct MCV MCH MCHC RDW Plt Count MPV Gran % Lymph % (Auto) [place] % (Auto) Eos % (Auto) Baso % (Auto) Gran # Lymph # (Auto) [place] # (Auto) Eos # (Auto) Baso # (Auto) Sodium Potassium Chloride Carbon Dioxide Anion Gap BUN Creatinine Est GFR ( Amer) Est GFR (Non-Af Amer) POC Glucose (mg/dL) 273 H Random Glucose Hemoglobin A1c Calcium Phosphorus Magnesium Total Bilirubin AST ALT Alkaline Phosphatase Total Protein Albumin Globulin Albumin/Globulin Ratio Triglycerides Cholesterol LDL Cholesterol Direct HDL Cholesterol TSH 3rd Generation Urine Eosinophils Negative Ur Random Creatinine 105 Ur Random Sodium 30 09/11/17 21:59 WBC RBC Hgb Hct MCV MCH MCHC RDW Plt Count MPV Gran % Lymph % (Auto) [place] % (Auto) Eos % (Auto) Baso % (Auto) Gran # Lymph # (Auto) [place] # (Auto) Eos # (Auto) Baso # (Auto) Sodium Potassium Chloride Carbon Dioxide Anion Gap BUN Creatinine Est GFR ( Amer) Est GFR (Non-Af Amer) POC Glucose (mg/dL) 272 H Random Glucose Hemoglobin A1c Calcium Phosphorus Magnesium Total Bilirubin AST ALT Alkaline Phosphatase Total Protein Albumin Globulin Albumin/Globulin Ratio Triglycerides Cholesterol LDL Cholesterol Direct HDL Cholesterol TSH 3rd Generation Urine Eosinophils Ur Random Creatinine Ur Random Sodium Attending/Attestation - Attestation I have personally seen and examined this patient.: Yes I have fully participated in the care of the patient.: Yes I have reviewed all pertinent clinical information: Yes Notes (Text): This is an addendum to GI progress report dictated by Ginger Chatterjee APN.The patient was seen and examined earlier. Medical records, lab studies, imagings were reviewed. Last 24 hours events reviewed. Agreed with the above treatment plan as outlined in Ginger Chatterjee APN's notes with the addition of the following 09/11/17 23:31
[2017-09-12] MEDS: Albuterol-Ipratrop 3 mg / 0.5 (3 ml) UD IH SCH ×4 (01:39→20:33)
[2017-09-12] MEDS: Sodium Chloride 0.9% 1,000 ML IV SCH ×5 (03:31→22:55)
[2017-09-12] MEDS: Pantoprazole 20 mg EC Tab PO SCH ×2 (07:02→19:06)
[2017-09-12 07:22] LABS: BASO # 0.04 K/mm3 (0.0-2.0); BASO % 0.4 % (0.0-3.0); EOS # 0.6 (0.0-0.7); EOS % 6.5 % (1.5-5.0); GRAN # 5.58 (1.4-6.5); GRAN % 57.9 % (50.0-68.0); HEMOGLOBIN 9.4 g/dL (12.0-16.0); LYMPH # 2.8 (1.2-3.4); LYMPH % 29.4 % (22.0-35.0); MEAN CELL VOLUME 89.2 fl (80.0-105.0); MEAN CORPUSCULAR HGB CONC 29.2 g/dl (31.0-37.0); MEAN PLATELET VOLUME 11.5 fl (7.0-11.0); MONO # 0.6 (0.1-0.6); MONO % 5.8 % (1.0-6.0); RBC 3.61 10^6/uL (3.5-6.1); RED CELL DISTRIBUTION WIDTH 15.4 % (11.5-14.5); WHITE BLOOD COUNT 9.6 10^3/ul (4.5-11.0)
[2017-09-12 07:59] LABS: ALB/GLOB RATIO 0.9 (1.1-1.8); ALT/SGPT 38 U/L (7-56); AST/SGOT 22 U/L (14-36); BLOOD UREA NITROGEN 100 mg/dL (7-21); CALCIUM 8.3 mg/dL (8.4-10.5); GFR AFRICAN-AMERICAN 24; GFR NON-AFRICAN AMERICAN 20
[2017-09-12] MEDS: Insulin Lispro 1 UNITS/0.01 ML SC SCH ×3 (08:38→19:05)
[2017-09-12] MEDS: Insulin Reg-LOW-Coverage SC SCH ×4 (08:39→22:56)
[2017-09-12] MEDS: Metoprolol Succinate 100 mg XL Tab PO SCH (08:40)
[2017-09-12] MEDS ORDERED: Darbepoetin Alfa 60 mcg/ml Inj SC ONE (10:00)
[2017-09-12] MEDS ORDERED: Enoxaparin 40 mg Syringe SC SCH (10:00)
[2017-09-12] MEDS: Enoxaparin 30 mg Syringe SC SCH (10:32)
[2017-09-12] MEDS: Iron Complex Polysacch 150mg Cap PO SCH (10:33)
--- NOTE | 2017-09-12 11:43 | CP.PCM.PN ---
<Yajaira Rice - Last Filed: 09/12/17 15:10> Subjective - Date & Time of Evaluation Date of Evaluation: 09/12/17 Time of Evaluation: 07:00 - Subjective Subjective: Pgy-2 consult note for heme/onc 61 year old female with a history of anemia, rectal cancer status post partial colectomy with colostomy and mucous fistula, morbid obesity, chronic kidney disease, status post PTCA stent with history of recent pulmonary edema was transferred from TCU for acute kidney failure. The patient had decreased urinate since Sunday. She was also noted to have elevated BUN and creatinine. This morning the patient states that she is doing better, she feels better then when she was in the TCU. Patient also reports improvement in her appetite. She denies fever chills, headache, dizziness, nausea vomiting or abdominal pain or GI bleed. Her colostomy is in place without any problems. PMH: Morbid obesity, [id number] diabetes, rectal cancer status post chemotherapy radiation, pulmonary edema, chronic kidney disease, hyperlipidemia , anemia, pneumonia PSH: Partial colectomy with colostomy and mucous fistula, history of PTCA with stent Allergies: No known drug allergies Family history: breast cancer to sister, brother had heart complications, father at age 49 with heart problems Social history: No history of tobacco use, EtOH or illicit drugs Objective - Vital Signs/Intake and Output Vital Signs (last 24 hours): Temp Pulse Resp BP Pulse Ox 98.5 F 80 20 164/70 H 98 09/12/17 06:00 09/12/17 08:40 09/12/17 06:00 09/12/17 10:32 09/12/17 06:00 Intake and Output: 09/12/17 09/12/17 06:59 18:59 Intake Total 0 Output Total 1000 Balance -1000 - Medications Medications: Current Medications Acetaminophen (Tylenol 325mg Tab) 650 mg PO Q6H PRN PRN Reason: Headache Albuterol/Ipratropium (Duoneb 3 Mg/0.5 Mg (3 Ml) Ud) 3 ml IH [id number] [facility] Last Admin: 09/12/17 08:05 Dose: 3 ml Amlodipine Besylate (Norvasc) 10 mg PO DAILY [facility] Last Admin: 09/12/17 10:32 Dose: 10 mg Aspirin (Ecotrin) 81 mg PO DAILY [facility] Last Admin: 09/12/17 10:33 Dose: 81 mg Atorvastatin Calcium (Lipitor) 40 mg PO DIN [facility] Last Admin: 09/11/17 18:19 Dose: 40 mg Calcium Acetate (Phoslo) 667 mg PO WM [facility] Last Admin: 09/12/17 10:33 Dose: 667 mg Enoxaparin Sodium (Lovenox) 30 mg SC DAILY [facility] Last Admin: 09/12/17 10:32 Dose: 30 mg Fluticasone Propionate (Flonase) 0 actuation NS DAILY [facility] Last Admin: 09/11/17 11:07 Dose: 1 spray Hydralazine HCl (Apresoline) 10 mg PO QID PRN PRN Reason: for sbp>170 Hydromorphone HCl (Dilaudid) 4 mg PO Q4H PRN PRN Reason: Pain, severe (8-10) Last Admin: 09/11/17 20:05 Dose: 4 mg Sodium Chloride (Sodium Chloride 0.9%) 1,000 mls @ 125 mls/hr IV .Q8H [facility] Last Admin: 09/12/17 03:31 Dose: 125 mls/hr Insulin Detemir (Levemir) 30 unit SC BID [facility] Insulin Human Lispro (Humalog) 5 units SC AC [facility] Last Admin: 09/12/17 08:38 Dose: 5 units Insulin Human Regular (Humulin R Low) 1 units SC ACHS [facility] PRN Reason: Protocol Last Admin: 09/12/17 08:39 Dose: 1 units Isosorbide Mononitrate (Imdur) 60 mg PO DAILY [facility] Last Admin: 09/12/17 10:33 Dose: 60 mg Metoprolol Succinate (Toprol Xl) 100 mg PO BRK [facility] Last Admin: 09/12/17 08:40 Dose: 100 mg Montelukast Sodium (Singulair) 10 mg PO HS [facility] Last Admin: 09/11/17 21:15 Dose: 10 mg Pantoprazole Sodium (Protonix Ec Tab) 20 mg PO 0600,1600 [facility] Last Admin: 09/12/17 07:02 Dose: 20 mg Polysaccharide Iron Complex (Ferrex-150) 150 mg PO DAILY [facility] Last Admin: 09/12/17 10:33 Dose: 150 mg Pregabalin (Lyrica) 50 mg PO BID [facility] Last Admin: 09/12/17 10:32 Dose: 50 mg - Labs Labs: 09/12/17 06:30 09/12/17 06:30 - Constitutional Appears: No Acute Distress - Head Exam Head Exam: ATRAUMATIC, NORMAL INSPECTION, NORMOCEPHALIC - Eye Exam Eye Exam: EOMI, Normal appearance - ENT Exam ENT Exam: Mucous Membranes Moist - Respiratory Exam Respiratory Exam: Clear to Ausculation Bilateral, NORMAL BREATHING PATTERN. absent: Rhonchi, Wheezes, Respiratory Distress - Cardiovascular Exam Cardiovascular Exam: REGULAR RHYTHM, +S1, +S2. absent: Tachycardia, Murmur - GI/Abdominal Exam GI & Abdominal Exam: Soft, Normal Bowel Sounds. absent: Distended, Firm, Guarding, Tenderness - Extremities Exam Extremities Exam: Normal Inspection - Neurological Exam Neurological Exam: Alert, Awake, Oriented x3 - Psychiatric Exam Psychiatric exam: Normal Affect, Normal Mood - Skin Skin Exam: Dry, Intact, Normal Color, Warm Assessment and Plan - Assessment and Plan (Free Text) Assessment: 61 yo F with PMH of COPD, DM, HTN, CAD, unresectable rectal cancer s/p chemo/ rads tx and colostomy, morbid obesity with BMI 50, obstructive sleep apnea non- compliant with Bipap, and hx of severe pulmonary embolism on life-long anticoagulation s/p clot lysis and IVC filter placement who [place] [facility] [place]ness of breath x2-3 weeks. Patient was in TCU however was found to have increased weakness, lack of appetite and SHELBI. Patient was readmitted to telemetry for acute renal failure. SHELBI DM HTN CAD unresectable rectal cancer s/p chemo/rads tx and colostomy obstructive sleep apnea non-compliant with Bipap hx of severe pulmonary embolism on life-long anticoagulation s/p clot lysis and IVC filter placement Plan: - Renal function have improved since admission - nephrology following, recommended strict I&O, IVF - renal ultrasound- limited examination, no hydronephrosis and nephrolithiasis - GI following, recommended colonoscope once patient is optimized. - continue therapeutic anticoagulation Patient reviewed and discussed with attending, Dr. Faye <Maria Ines Faye P - Last Filed: 09/16/17 19:33> Objective - Vital Signs/Intake and Output Vital Signs (last 24 hours): Temp Pulse Resp BP Pulse Ox 98.3 F 87 18 161/59 H 99 09/14/17 12:00 09/14/17 17:16 09/14/17 12:00 09/14/17 17:16 09/14/17 08:00 - Labs Labs: 09/12/17 06:30 09/14/17 08:50 Attending/Attestation - Attestation I have personally seen and examined this patient.: Yes I have fully participated in the care of the patient.: Yes I have reviewed all pertinent clinical information, including history, physical exam and plan: Yes
[2017-09-12] MEDS: Fluticasone Nasal 50 mcg/Spray NS SCH (12:29)
[2017-09-12] MEDS: Insulin Detemir 100 units/ml Vial (Levemir) SC SCH ×3 (12:33→19:46)
--- NOTE | 2017-09-12 13:39 | HP ---
DATE OF EXAM: 09/11/2017 REASON FOR ADMISSION: Acute renal failure. HISTORY OF PRESENT ILLNESS: A 61-year-old female with multiple medical problems including congestive heart failure, chronic diastolic and systolic plus coronary artery disease, pulmonary hypertension, morbid obesity, COPD, obstructive sleep apnea and came in with respiratory distress initially to the hospital within a week and she got IV Lasix. Patient has poor appetite and the appetite plus the Lasix, patient got dehydrated and developed acute renal failure with anuria. Patient was transferred to emergency room for evaluations due to her poor appetite and increased her p.o. intake. Patient also feels generally weak and unsafe to be discharged home and feels unsteady. She has also nausea. No vomiting and no abdominal pain. Patient initially seen by multiple consultants including GI, Nephrology consults, Pulmonary consults and Cardiology consultations. There is no any fever. No rectal bleeding. No other complaint. PAST MEDICAL HISTORY: As I mentioned above, pulmonary hypertension, COPD, obstructive sleep apnea, colorectal cancer, colostomy, hypertension, hypercholesterolemia, insulin-dependent diabetes, morbid obesity, chronic back pain, disk disease, sciatica and radiculopathy. ALLERGIES: NO KNOWN ALLERGIES. SOCIAL HISTORY: No smoking. No drinking. She lives by herself with poor social support and her son also. REVIEW OF SYSTEMS: As in the present illness. PHYSICAL EXAMINATION: VITAL SIGNS: Temperature 98.1, heart rate 90, blood pressure 152/62, respirations 19. HEAD AND NECK: Normal. No JVD. No thyromegaly. CHEST: Clear. Good air entry bilaterally. CARDIAC: First sound and second sounds are normal. ABDOMEN: Soft, obese and nontender. EXTREMITIES: No edema. NEUROLOGICAL: Normal. LABORATORY DATA: Shows white count 9.9, hemoglobin 9.8, hematocrit 32.5, and platelets 279. Chemistry: Sodium 139, potassium 4.9, chloride 101, bicarbonate 29, BUN 106, creatinine 4.1. Blood sugar 253 and hemoglobin A1c is 7.5, phosphorous 5.1, magnesium 2.5. Liver function test is normal. Patient also had triglycerides 161, cholesterol 242 and LDL 136. Patient also had TSH of 0.12. IMPRESSION AND PLAN: 1. Acute renal failure. Continue IV fluid. We will discuss with Dr. Perea. 2. Insulin-dependent diabetes, uncontrolled with continued insulin and will follow up appetite and p.o. intake and monitor accordingly. 3. Anemia, history of colorectal cancer. Patient may need repeat colonoscopy through the colostomy area and Dr. Benitez GI consulted the case. 4. Chronic obstructive pulmonary disease, obstructive sleep apnea, morbid obesity. Continue BiPAP. Continue nebulizer treatment. 5. Hypertension, uncontrolled. Continue blood pressure medicine. We will monitor her blood pressure. She is off hydralazine at this time and we will see how she does. 6. Hypercholesterolemia. Continue Lipitor 40 mg daily. 7. Coronary artery disease. Continue Imdur. Patient also had a renal failure. We will give her deep vein thrombosis prophylaxis, Lovenox 30 mg at this time. Repeat lab in the morning. Monitor urine output and will follow up clinically. Elroy Florian MD
[2017-09-12 13:42] LABS: IRON 44 ug/dL (45-180)
[2017-09-12 13:51] LABS: % IRON SATURATION 24 % (20-55); TOTAL IRON BINDING CAPACITY 184 ug/dL (265-497)
--- NOTE | 2017-09-12 14:23 | PN ---
DATE: 09/12/2017 SUBJECTIVE: The patient is seen lying in bed. She is awake. She is alert. She is comfortable. She has a Marrero, which is draining clear urine. PHYSICAL EXAMINATION: GENERAL: Morbidly obese, middle-aged lady lying in bed. VITAL SIGNS: Blood pressure 164/70, heart rate 80, respiratory rate 20, temperature 98.5. HEENT: Normocephalic, atraumatic. NECK: Supple, no JVD. LUNGS: Bilateral equal air entry, bilateral equal expansion, no rales. CARDIAC: S1 and S2, regular rate and rhythm, no murmur, no rub. ABDOMEN: Obese, distended, soft, nontender, bowel sounds present. EXTREMITIES: Trace lower extremity edema. INTAKE AND OUTPUT: 1000 output. LABORATORY DATA: WBC 9.6, hemoglobin 9.4, hematocrit 32, platelets 277. Sodium 142, potassium 4.4, chloride 107, CO2 of 28, BUN 100, creatinine 2.5, glucose 279, calcium 8.3, phosphorus 4.9, magnesium to 2.1, albumin 3, corrected calcium is 9. Urinalysis: Yellow, turbid, pH 5.5, specific gravity greater than 1.030, protein 100, leukocyte esterase negative, urine eosinophils negative, urine creatinine 100, urine sodium 30. Urine culture, no growth so far. CURRENT MEDICATIONS: Apresoline, Dilaudid, DuoNeb, Ecotrin, Ferrex, Flonase, insulin, Imdur 60, Lipitor 40, Lovenox 30, Lyrica 50 b.i.d., amlodipine 10, PhosLo 667 t.i.d., Protonix, Singulair, normal saline at 125, Toprol-XL. ASSESSMENT: 1. Acute kidney injury superimposed on chronic kidney disease stage III. 2. Prerenal azotemia. 3. Coronary artery disease, history of percutaneous transluminal coronary angioplasty and stent. 4. Hypertension. 5. Pulmonary edema/hypervolemia. 6. Chronic obstructive pulmonary disease. 7. History of rectal cancer, colectomy, colostomy. 8. Severe anemia. 9. Secondary hyperparathyroidism. PLAN: 1. Continue IV fluids. 2. Monitor strict intake and output. 3. Monitor fingersticks. 4. Continue phosphate binder. 5. Avoid nephrotoxins. 6. Repeat iron studies. Kristine Archibald MD [facility] # [id number]
--- NOTE | 2017-09-12 15:12 | PN ---
DATE: REASON FOR CONSULTATION AND FOLLOWUP: Cardiac evaluation, admitted with swelling of the body, acute kidney injury, history of coronary artery disease, history of a stent in the past. SUBJECTIVE: The patient denies any chest pain, shortness of breath or any palpitation. Complaining of shaking of the hand and tremor. OBJECTIVE GENERAL: Not in any apparent distress, lying flat on the bed. VITAL SIGNS: Temperature afebrile, heart rate 80, blood pressure 164/70. HEENT: PERRLA. Extraocular muscles intact. NECK: Supple. No carotid bruit or thyromegaly. CHEST: Clear to auscultation. HEART: S1, S2 regular. ABDOMEN: Soft. EXTREMITIES: Clubbing and cyanosis negative. LABORATORY DATA: Blood workup as follows: WBC 9.6, hemoglobin 9.5, hematocrit 32.2, platelet count 277. Chemistry shows sodium 140, potassium 4.4, chloride , carbon dioxide 20, anion gap of 12, BUN 100, creatinine 2.5. IMPRESSION AND RECOMMENDATION: Uncontrolled hypertension, acute kidney injury, diabetes, hypertension, hyperlipidemia, morbid obesity, history of coronary artery disease status post stent, history of colorectal cancer status post colostomy, history of bare-metal stents four years ago as mentioned above, history of deep vein thrombosis. History of pulmonary embolism, on Xarelto at one point, now the patient is on Coumadin at one point. Acute kidney injury, improving. Avoid nephrotoxic mediation. The patient is beta joseph. We will put some hydralazine p.r.n. for better control of the blood pressure. Recent echo on 09/01/2017 shows normal left ventricular function, ejection fraction preserved, no mitral regurgitation, no tricuspid regurgitation, right ventricular systolic pressure of 25. Continue antihypertensive medication. Monitor electrolytes. Monitor kidney function. Continue gentle hydration. Avoid nephrotoxic medication. We will follow with you. Thank you, Dr. Florian, for providing us the opportunity in taking care of patient, Pedro Guevara. Pamela Guerrero MD
--- NOTE | 2017-09-12 16:45 | PN ---
DATE: PULMONARY PROGRESS NOTE REFERRING PHYSICIAN: Elroy Florian MD SUBJECTIVE: She is lying in the bed at 45 degree. Night was unremarkable. Not very fond of CPAP and BiPAP. Cough is better. No nausea. No vomiting. No diarrhea. No leg pain or leg swelling. PHYSICAL EXAMINATION GENERAL: In no acute distress. VITAL SIGNS: Temperature 98, heart rate is 80, respiratory rate is 20, blood pressure 164/70, and pulse ox is 98% on 2 liters nasal cannula. HEENT: Moist mucous membrane. Crowded airway. NECK: Supple. No JVD. LUNGS: Has a fair air flow with rhonchi. HEART: S1 and S2. ABDOMEN: Soft, nontender. No organomegaly. EXTREMITIES: No edema. NEUROLOGIC: Awake and alert. Follow simple commands. MEDICATIONS: She is on hydralazine 10 mg four times a day p.r.n., Dilaudid 0.5 mg every 4 hour p.r.n., DuoNeb every 6 hours round the clock, Ecotrin 81 mg daily, Flexeril 150 mg daily, Flonase one spray to each nostril daily, insulin coverage, Imdur 60 mg daily, Levemir 30 units subcu b.i.d., Lipitor 40 mg daily, Lovenox 30 mg subcu daily, Lyrica 50 mg twice a day, Norvasc 10 mg daily, Protonix 20 mg twice a day, Singulair 10 mg daily, IV fluid normal saline 125 mL per hour, Toprol-XL 100 mg daily, Tylenol p.r.n. basis. LABORATORY DATA: Shows hemoglobin 9.4, hematocrit 32.2, WBC 9.6, platelet count is 277. Sodium 142, potassium 4.4, chloride 107, bicarbonate 28, BUN 100, creatinine 2.5, glucose 279, calcium is 8.3, phosphorous is 4.9, magnesium 2.1, total bilirubin less than 0.1. AST 22, ALT 38, alkaline phosphatase is 91, albumin is 3.0. IMPRESSION AND PLAN: Acute renal failure, chronic lung disease, sleep apnea syndrome, history of deep venous thrombosis, pulmonary embolism, anxiety disorder, colorectal cancer requiring colostomy, diabetes, depression, renal failure. Spoke to the patient and family at the beside. All the questions answered. We will continue current CPAP use. Keep head at 45 degree. Continue IV fluid. Gastric prophylaxis. Elevate lower extremity. Recommended to get the patient out of bed to chair. Start therapy. Thank you and we will follow with you. Pamela Ayala MD
--- NOTE | 2017-09-12 17:38 | CP.PCM.PN ---
Subjective - Date & Time of Evaluation Date of Evaluation: 09/12/17 Time of Evaluation: 11:25 - Subjective Subjective: Seen and examined at the bedside earlier today, chart reviewed. Patient with no new complaints. Colostomy bag has good stool output, soft brown in color. Patient tolerating oral intake, no nausea, vomiting, or abdominal pain. Objective - Vital Signs/Intake and Output Vital Signs (last 24 hours): Temp Pulse Resp BP Pulse Ox 98.3 F 89 20 146/55 L 98 09/12/17 12:00 09/12/17 12:00 09/12/17 12:00 09/12/17 12:00 09/12/17 06:00 Intake and Output: 09/12/17 09/12/17 06:59 18:59 Intake Total 0 Output Total 1000 Balance -1000 - Medications Medications: Current Medications Acetaminophen (Tylenol 325mg Tab) 650 mg PO Q6H PRN PRN Reason: Headache Albuterol/Ipratropium (Duoneb 3 Mg/0.5 Mg (3 Ml) Ud) 3 ml IH [id number] [facility] Last Admin: 09/12/17 13:09 Dose: Not Given Amlodipine Besylate (Norvasc) 10 mg PO DAILY [facility] Last Admin: 09/12/17 10:32 Dose: 10 mg Aspirin (Ecotrin) 81 mg PO DAILY [facility] Last Admin: 09/12/17 10:33 Dose: 81 mg Atorvastatin Calcium (Lipitor) 40 mg PO DIN [facility] Last Admin: 09/11/17 18:19 Dose: 40 mg Calcium Acetate (Phoslo) 667 mg PO WM [facility] Last Admin: 09/12/17 12:34 Dose: 667 mg Enoxaparin Sodium (Lovenox) 30 mg SC DAILY [facility] Last Admin: 09/12/17 10:32 Dose: 30 mg Fluticasone Propionate (Flonase) 0 actuation NS DAILY [facility] Last Admin: 09/12/17 12:29 Dose: 1 spray Hydralazine HCl (Apresoline) 10 mg PO QID PRN PRN Reason: for sbp>170 Hydromorphone HCl (Dilaudid) 4 mg PO Q4H PRN PRN Reason: Pain, severe (8-10) Last Admin: 09/11/17 20:05 Dose: 4 mg Sodium Chloride (Sodium Chloride 0.9%) 1,000 mls @ 75 mls/hr IV .[id number] [facility] Insulin Detemir (Levemir) 30 unit SC BID [facility] Last Admin: 09/12/17 12:33 Dose: 30 unit Insulin Human Lispro (Humalog) 5 units SC AC [facility] Last Admin: 09/12/17 12:34 Dose: 5 units Insulin Human Regular (Humulin R Low) 1 units SC ACHS [facility] PRN Reason: Protocol Last Admin: 09/12/17 12:33 Dose: 1 units Isosorbide Mononitrate (Imdur) 60 mg PO DAILY [facility] Last Admin: 09/12/17 10:33 Dose: 60 mg Metoprolol Succinate (Toprol Xl) 100 mg PO BRK [facility] Last Admin: 09/12/17 08:40 Dose: 100 mg Montelukast Sodium (Singulair) 10 mg PO HS [facility] Last Admin: 09/11/17 21:15 Dose: 10 mg Pantoprazole Sodium (Protonix Ec Tab) 20 mg PO 0600,1600 [facility] Last Admin: 09/12/17 07:02 Dose: 20 mg Polysaccharide Iron Complex (Ferrex-150) 150 mg PO DAILY [facility] Last Admin: 09/12/17 10:33 Dose: 150 mg Pregabalin (Lyrica) 50 mg PO BID [facility] Last Admin: 09/12/17 10:32 Dose: 50 mg - Labs Labs: 09/12/17 06:30 09/12/17 06:30 - Constitutional Appears: No Acute Distress - Eye Exam Eye Exam: Normal appearance. absent: Scleral icterus - ENT Exam ENT Exam: Mucous Membranes Moist - Respiratory Exam Respiratory Exam: NORMAL BREATHING PATTERN. absent: Respiratory Distress - Cardiovascular Exam Cardiovascular Exam: +S1, +S2 - GI/Abdominal Exam GI & Abdominal Exam: Soft, Normal Bowel Sounds. absent: Guarding, Tenderness, Rebound Additional comments: abdomen is obese, positive colostomy with soft brown stool - Extremities Exam Extremities Exam: Pedal Edema (trace). absent: Calf Tenderness - Neurological Exam Neurological Exam: Alert, Awake, Oriented x3 - Skin Skin Exam: Dry, Warm Assessment and Plan - Assessment and Plan (Free Text) Assessment: Assessment: Acute on chronic renal failure Rectal carcinoma s/p chemo radiation w/ anterior resection, transverse colostomy and closure of mucous fistula Pulmonary hypertension Morbid Obesity DM Anemia H/O PE PLAN: diet as tolerated continue PPI, on Protonix 20 mg BID monitor H/H and overt GI bleeding On iron supplement On Lovenox as per renal, cardiology and pulmonary Would benefit colonoscopy at some point when patient is optimized , recent respiratory failure and history of pulmonary hypertension now in acute RF, consider CT scan of abdomen and pelvis when acute renal failure has improved. Seen and discussed w/ Dr. Benitez.
[2017-09-13] MEDS: Pantoprazole 20 mg EC Tab PO SCH ×2 (05:56→18:07)
[2017-09-13] MEDS: Sodium Chloride 0.9% 1,000 ML IV SCH (07:06)
[2017-09-13 07:14] LABS: CALCIUM 8.5 mg/dL (8.4-10.5)
[2017-09-13] MEDS: Albuterol-Ipratrop 3 mg / 0.5 (3 ml) UD IH SCH ×4 (07:45→21:57)
[2017-09-13] MEDS: Insulin Reg-LOW-Coverage SC SCH ×4 (08:15→21:56)
[2017-09-13] MEDS: Metoprolol Succinate 100 mg XL Tab PO SCH (08:19)
[2017-09-13] MEDS: Insulin Lispro 1 UNITS/0.01 ML SC SCH ×3 (08:20→18:06)
--- NOTE | 2017-09-13 08:48 | CP.PCM.PN ---
<Yjaaira Rice - Last Filed: 09/14/17 08:26> Subjective - Date & Time of Evaluation Date of Evaluation: 09/13/17 Time of Evaluation: 07:30 - Subjective Subjective: PGY-2 Heme/onc progress note Patient seen and examined at bedside. No acute distress. No acute events overnight per nurse. Patient states that she feels better today then she did yesterday. She states that she has pain from her rectum but states that she has this pain from time to time. Pain is relieved with medication. She is eating well and tolerating diet. She is advised to avoid sugary foods due to her diabetes. She denies fever, sob, chest pain, abd pain, n/v. Objective - Vital Signs/Intake and Output Vital Signs (last 24 hours): Temp Pulse Resp BP Pulse Ox 98.3 F 101 H 20 246/96 H 99 09/13/17 06:00 09/13/17 06:00 09/13/17 06:00 09/13/17 06:00 09/13/17 06:00 Intake and Output: 09/13/17 09/13/17 06:59 18:59 Intake Total 1260 Output Total 1300 Balance -40 - Medications Medications: Current Medications Acetaminophen (Tylenol 325mg Tab) 650 mg PO Q6H PRN PRN Reason: Headache Albuterol/Ipratropium (Duoneb 3 Mg/0.5 Mg (3 Ml) Ud) 3 ml IH [id number] [facility] Last Admin: 09/13/17 07:45 Dose: 3 ml Amlodipine Besylate (Norvasc) 10 mg PO DAILY [facility] Last Admin: 09/12/17 10:32 Dose: 10 mg Aspirin (Ecotrin) 81 mg PO DAILY [facility] Last Admin: 09/12/17 10:33 Dose: 81 mg Atorvastatin Calcium (Lipitor) 40 mg PO DIN [facility] Last Admin: 09/12/17 19:06 Dose: 40 mg Calcium Acetate (Phoslo) 667 mg PO WM [facility] Last Admin: 09/13/17 08:19 Dose: 667 mg Clonidine HCl (Catapres) 0.1 mg PO Q4H PRN PRN Reason: Systolic Blood Pressure Enoxaparin Sodium (Lovenox) 30 mg SC DAILY [facility] Last Admin: 09/12/17 10:32 Dose: 30 mg Fluticasone Propionate (Flonase) 0 actuation NS DAILY [facility] Last Admin: 09/12/17 12:29 Dose: 1 spray Hydralazine HCl (Apresoline) 10 mg PO QID PRN PRN Reason: for sbp>170 Last Admin: 09/13/17 05:57 Dose: 10 mg Hydralazine HCl (Apresoline) 10 mg PO QID JR Hydromorphone HCl (Dilaudid) 4 mg PO Q4H PRN PRN Reason: Pain, severe (8-10) Last Admin: 09/13/17 01:58 Dose: 4 mg Sodium Chloride (Sodium Chloride 0.9%) 1,000 mls @ 75 mls/hr IV .[id number] [facility] Last Admin: 09/13/17 07:06 Dose: Not Given Insulin Detemir (Levemir) 30 unit SC BID [facility] Last Admin: 09/12/17 19:06 Dose: 30 unit Insulin Detemir (Levemir) 40 unit SC BID [facility] Insulin Human Lispro (Humalog) 8 units SC AC [facility] Last Admin: 09/13/17 08:20 Dose: 8 units Insulin Human Regular (Humulin R Low) 0 units SC ACHS [facility] PRN Reason: Protocol Isosorbide Mononitrate (Imdur) 60 mg PO DAILY [facility] Last Admin: 09/12/17 10:33 Dose: 60 mg Metoprolol Succinate (Toprol Xl) 100 mg PO BRK [facility] Last Admin: 09/13/17 08:19 Dose: 100 mg Montelukast Sodium (Singulair) 10 mg PO HS [facility] Last Admin: 09/12/17 22:56 Dose: 10 mg Pantoprazole Sodium (Protonix Ec Tab) 20 mg PO 0600,1600 [facility] Last Admin: 09/13/17 05:56 Dose: 20 mg Polysaccharide Iron Complex (Ferrex-150) 150 mg PO DAILY [facility] Last Admin: 09/12/17 10:33 Dose: 150 mg Pregabalin (Lyrica) 50 mg PO BID [facility] Last Admin: 09/12/17 19:06 Dose: 50 mg - Labs Labs: 09/12/17 06:30 09/13/17 06:40 - Constitutional Appears: Well, No Acute Distress - Head Exam Head Exam: ATRAUMATIC, NORMOCEPHALIC - Eye Exam Eye Exam: EOMI, Normal appearance - ENT Exam ENT Exam: Mucous Membranes Moist - Respiratory Exam Respiratory Exam: Clear to Ausculation Bilateral, NORMAL BREATHING PATTERN. absent: Rales, Rhonchi, Wheezes, Respiratory Distress - Cardiovascular Exam Cardiovascular Exam: REGULAR RHYTHM, +S1, +S2. absent: Tachycardia, Murmur - GI/Abdominal Exam GI & Abdominal Exam: Soft, Normal Bowel Sounds. absent: Distended, Tenderness Additional comments: colostomy in place, brown stool - Neurological Exam Neurological Exam: Alert, Awake, Oriented x3 - Skin Skin Exam: Dry, Intact, Normal Color, Warm Assessment and Plan - Assessment and Plan (Free Text) Assessment: 61 yo F with PMH of COPD, DM, HTN, CAD, unresectable rectal cancer s/p chemo/ rads tx and colostomy, morbid obesity with BMI 50, obstructive sleep apnea non- compliant with Bipap, and hx of severe pulmonary embolism on life-long anticoagulation s/p clot lysis and IVC filter placement who originally presented to [facility] for progressively worsening shortness of breath x2-3 weeks. Patient was in TCU however was found to have increased weakness, lack of appetite and SHELBI. Patient was readmitted to telemetry for acute renal failure. SHELBI DM HTN CAD unresectable rectal cancer s/p chemo/rads tx and colostomy obstructive sleep apnea non-compliant with Bipap hx of severe pulmonary embolism on life-long anticoagulation s/p clot lysis and IVC filter placement Plan: - Renal function continues to improve - nephrology following, recommended strict I&O, IVF - renal ultrasound- limited examination, no hydronephrosis and nephrolithiasis - GI following, recommended colonoscope once patient is optimized. Will consider CT scan of abdomen and pelvis when acute renal failure has improved. - continue therapeutic anticoagulation Patient reviewed and discussed with attending, Dr. Faye <Maria Ines Fyae P - Last Filed: 09/16/17 19:25> Objective - Vital Signs/Intake and Output Vital Signs (last 24 hours): Temp Pulse Resp BP Pulse Ox 98.3 F 87 18 161/59 H 99 09/14/17 12:00 09/14/17 17:16 09/14/17 12:00 09/14/17 17:16 09/14/17 08:00 - Labs Labs: 09/12/17 06:30 09/14/17 08:50 Attending/Attestation - Attestation I have personally seen and examined this patient.: Yes I have fully participated in the care of the patient.: Yes I have reviewed all pertinent clinical information, including history, physical exam and plan: Yes
[2017-09-13] MEDS: Iron Complex Polysacch 150mg Cap PO SCH (10:05)
[2017-09-13] MEDS: Insulin Detemir 100 units/ml Vial (Levemir) SC SCH ×2 (10:06→18:06)
[2017-09-13] MEDS: Fluticasone Nasal 50 mcg/Spray NS SCH (10:06)
[2017-09-13] MEDS: Enoxaparin 30 mg Syringe SC SCH (10:07)
--- NOTE | 2017-09-13 15:11 | PN ---
DATE: 09/13/2017 SUBJECTIVE: The patient is seen lying in bed. She appears tachypneic. She reports she had trouble breathing last night. She denies any chest pain. She denies any palpitations. PHYSICAL EXAMINATION: GENERAL: Morbidly obese middle-aged lady lying in bed. VITAL SIGNS: Blood pressure 180/90. Blood pressure was 246/96 during the night. Heart rate 101, respiratory rate 20, temperature 98.3. HEENT: Normocephalic, atraumatic, positive pallor. NECK: Supple, no JVD. LUNGS: Bilateral equal air entry, no rales appreciated anteriorly. CARDIAC: S1 and S2, regular rate and rhythm, no murmur, no rub. ABDOMEN: Obese, distended, soft, positive colostomy. EXTREMITIES: No lower extremity edema. INTAKE AND OUTPUT: 1260/1300?? The patient is receiving IV fluids at 125 mL per hour. LABORATORY DATA: Sodium 145, potassium 4.8, chloride 111, CO2 of 30, BUN 75, creatinine 1.7, glucose 349, calcium 8.5. Iron saturation 24, iron 44, ferritin 134. CURRENT MEDICATIONS: Apresoline, Catapres, Dilaudid, DuoNeb, Ecotrin, insulin, Imdur, Levemir, Lipitor, Lovenox, Lyrica, amlodipine, PhosLo, Protonix, Singulair, Toprol-XL, and Tylenol. ASSESSMENT: 1. Acute kidney injury superimposed on chronic kidney disease stage III, largely prerenal azotemia. 2. Severe hypertension. 3. [id number] diabetes mellitus. 4. Morbid obesity. 5. Recent pulmonary edema. 6. History of rectal cancer, colostomy. PLAN: 1. Discontinue IV fluids. 2. Monitor blood pressure closely, the patient was on losartan, which had to be discontinued because of SHELBI. 3. Monitor fingersticks closely and attempt euglycemia. 4. Physical therapy. 5. A 2 g sodium 1800 kilocalorie ADA diet. Kristine Archibald MD
--- NOTE | 2017-09-13 17:38 | CP.PCM.PN ---
Subjective - Date & Time of Evaluation Date of Evaluation: 09/13/17 Time of Evaluation: 10:05 - Subjective Subjective: Seen and examined at the bedside earlier today, chart was reviewed. Patient denies nausea, vomiting, or abdominal pain. Patient continues to have good stool output, no reports of bleeding. Patient with no new complaints. Objective - Vital Signs/Intake and Output Vital Signs (last 24 hours): Temp Pulse Resp BP Pulse Ox 97.1 F L 90 19 193/75 H 99 09/13/17 12:00 09/13/17 12:00 09/13/17 12:00 09/13/17 12:00 09/13/17 06:00 Intake and Output: 09/13/17 09/13/17 06:59 18:59 Intake Total 1260 Output Total 1300 Balance -40 - Medications Medications: Current Medications Acetaminophen (Tylenol 325mg Tab) 650 mg PO Q6H PRN PRN Reason: Headache Albuterol/Ipratropium (Duoneb 3 Mg/0.5 Mg (3 Ml) Ud) 3 ml IH [id number] [facility] Last Admin: 09/13/17 13:34 Dose: 3 ml Amlodipine Besylate (Norvasc) 10 mg PO DAILY [facility] Last Admin: 09/13/17 10:07 Dose: 10 mg Aspirin (Ecotrin) 81 mg PO DAILY [facility] Last Admin: 09/13/17 10:05 Dose: 81 mg Atorvastatin Calcium (Lipitor) 40 mg PO DIN [facility] Last Admin: 09/12/17 19:06 Dose: 40 mg Calcium Acetate (Phoslo) 667 mg PO WM [facility] Last Admin: 09/13/17 12:50 Dose: 667 mg Clonidine HCl (Catapres) 0.1 mg PO Q4H PRN PRN Reason: Systolic Blood Pressure Enoxaparin Sodium (Lovenox) 30 mg SC DAILY [facility] Last Admin: 09/13/17 10:07 Dose: 30 mg Fluticasone Propionate (Flonase) 0 actuation NS DAILY [facility] Last Admin: 09/13/17 10:06 Dose: 1 spray Hydralazine HCl (Apresoline) 10 mg PO QID PRN PRN Reason: for sbp>170 Last Admin: 09/13/17 05:57 Dose: 10 mg Hydralazine HCl (Apresoline) 10 mg PO QID [facility] Last Admin: 09/13/17 13:13 Dose: 10 mg Hydromorphone HCl (Dilaudid) 4 mg PO Q4H PRN PRN Reason: Pain, severe (8-10) Last Admin: 09/13/17 01:58 Dose: 4 mg Insulin Detemir (Levemir) 40 unit SC BID [facility] Last Admin: 09/13/17 10:06 Dose: 40 unit Insulin Human Lispro (Humalog) 8 units SC AC [facility] Last Admin: 09/13/17 12:50 Dose: 8 units Insulin Human Regular (Humulin R Low) 0 units SC ACHS [facility] PRN Reason: Protocol Last Admin: 09/13/17 12:50 Dose: 2 units Isosorbide Mononitrate (Imdur) 60 mg PO DAILY [facility] Last Admin: 09/13/17 10:06 Dose: 60 mg Metoprolol Succinate (Toprol Xl) 100 mg PO BRK [facility] Last Admin: 09/13/17 08:19 Dose: 100 mg Montelukast Sodium (Singulair) 10 mg PO HS [facility] Last Admin: 09/12/17 22:56 Dose: 10 mg Pantoprazole Sodium (Protonix Ec Tab) 20 mg PO 0600,1600 [facility] Last Admin: 09/13/17 05:56 Dose: 20 mg Polysaccharide Iron Complex (Ferrex-150) 150 mg PO DAILY [facility] Last Admin: 09/13/17 10:05 Dose: 150 mg Pregabalin (Lyrica) 50 mg PO BID [facility] Last Admin: 09/13/17 10:07 Dose: 50 mg - Labs Labs: 09/12/17 06:30 09/13/17 06:40 - Constitutional Appears: No Acute Distress - Eye Exam Eye Exam: Normal appearance. absent: Scleral icterus - ENT Exam ENT Exam: Mucous Membranes Moist - Neck Exam Neck Exam: Normal Inspection - Respiratory Exam Respiratory Exam: NORMAL BREATHING PATTERN. absent: Respiratory Distress - Cardiovascular Exam Cardiovascular Exam: +S1, +S2 - GI/Abdominal Exam GI & Abdominal Exam: Soft, Normal Bowel Sounds. absent: Guarding, Tenderness, Rebound Additional comments: colostomy with soft brown stool no bleeding - Extremities Exam Extremities Exam: Pedal Edema. absent: Calf Tenderness - Neurological Exam Neurological Exam: Alert, Awake, Oriented x3 Assessment and Plan - Assessment and Plan (Free Text) Assessment: Assessment: Acute on chronic renal failure Rectal carcinoma s/p chemo radiation w/ anterior resection, transverse colostomy and closure of mucous fistula Pulmonary hypertension Morbid Obesity DM Anemia H/O PE PLAN: diet as tolerated continue PPI, on Protonix 20 mg BID monitor H/H and overt GI bleeding On iron supplement On Lovenox as per renal, cardiology and pulmonary Would benefit colonoscopy at some point when patient is optimized , recent respiratory failure and history of pulmonary hypertension now in acute RF, consider CT scan of abdomen and pelvis when acute renal failure has improved. Seen and discussed w/ Dr. Benitez.
--- NOTE | 2017-09-13 18:01 | PN ---
DATE: 09/13/2017 LOCATION: Patient in room 375, bed 1. REASON FOR CONSULTATION AND FOLLOWUP: Cardiac evaluation, admitted with swelling of the body, acute kidney injury, history of coronary artery disease, history of stent in the past. SUBJECTIVE: Patient sitting in bed. Denies any chest pain, shortness of breath or palpitation. Patient states that she is feeling better as compared to before. PHYSICAL EXAMINATION: VITAL SIGNS: Blood pressure 180/90, respirations 20, pulse 101, temperature 98.3. HEENT: Head is normocephalic. Eyes: Pupils normal. Conjunctivae slightly pale. NECK: JVP low, carotids equal. THORAX: AP diameter normal. LUNGS: No significant rales. CARDIOVASCULAR: S1, S2. ABDOMEN: Protuberant, has colostomy. No organomegaly. EXTREMITIES: No clubbing, no cyanosis. LABORATORY DATA: WBC 90.6, hemoglobin 9.4, hematocrit 32.2, platelets 277. Sodium 145, potassium 4.8, BUN 75, creatinine 1.7, random sugar 249. On admission, patient's BUN was 106, creatinine 4.1 and today, BUN is 75 and creatinine 1.7, which shows improvement. IMPRESSION: Uncontrolled hypertension; acute kidney injury; diabetes; hyperlipidemia; morbid obesity; history of coronary artery disease, status post stent insertion many years ago; history of colorectal cancer, status post colostomy; history of bare-metal stent 4 years ago as mentioned above; history of deep vein thrombosis; history of pulmonary embolism, patient was on Xarelto at one point, now patient is on Coumadin. PLAN: To avoid nephrotoxic medication, will need adjustment for the blood pressure medication. Recent echo on 09/01/2017 showed normal LV function, ejection fraction preserved, no mitral regurg, no tricuspid regurg, right ventricular systolic pressure 25 mmHg. Patient started on hydralazine 10 mg four times daily to her previous therapy of blood pressure medication. Patient is on hand-held nebulizer therapy, aspirin 81 daily, iron-polysaccharide 150 mg p.o. daily, insulin as ordered, isosorbide mono 60 daily, Lipitor 40 daily, Lovenox 30 subcu daily, Lyrica 50 mg b.i.d., amlodipine 10 mg daily, Singulair 10 mg daily, IV fluid 75 mL an hour, metoprolol succinate 100 mg daily. We will see with hydralazine, how much the blood pressure improves and we will continue to monitor if need to readjust the medication. Told patient to lose weight. We will follow. Pamela Hernandez MD
[2017-09-14] MEDS: Albuterol-Ipratrop 3 mg / 0.5 (3 ml) UD IH SCH ×3 (01:20→13:50)
--- NOTE | 2017-09-14 02:35 | PN ---
DATE: 09/13/2017 PULMONARY PROGRESS NOTE REFERRING PHYSICIAN: Elroy Florian MD. SUBJECTIVE: The patient is lying in the bed, head at 45 degrees. Night was unremarkable. Sleepy today. Not very compliant with the BiPAP. No headache. No rhinitis. Cough is better. No nausea. No vomiting. Colostomy bag is draining well. OBJECTIVE: GENERAL: In no acute distress. VITAL SIGNS: Temp is 99.2, heart rate is 93, respiratory rate is 18, blood pressure 185/79, pulse ox 99% on 3 L nasal cannula. HEENT: Moist mucous membrane. Crowded airway. Mallampati score is IV. NECK: Supple. No JVD. LUNGS: Have fair airflow with rhonchi. HEART: S1, S2. ABDOMEN: Soft, nontender. Colostomy is draining well. EXTREMITIES: No edema. NEUROLOGIC: Sleepy, arousable. MEDICATIONS: She is on hydralazine 10 mg four times daily p.r.n., Catapres 0.1 mg every 4 hours p.r.n., Dilaudid 4 mg every 4 hours p.r.n., DuoNeb every 6 hours, Ecotrin 81 mg daily, mg daily, Flonase one spray to each nostril daily, insulin coverage, Imdur 60 mg daily, Levemir 40 units subcu twice a day, Lipitor 40 mg daily, Lovenox 30 mg subcu daily, Lyrica 50 mg twice a day, Norvasc 10 mg daily, PhosLo 667 with the meals, Protonix 20 mg twice a day, Singulair 10 mg daily, Toprol XL 100 mg daily and Tylenol p.r.n. basis. LABORATORY DATA: Shows hemoglobin 9.4, hematocrit 32.2, WBC 9.6, platelet is 277. Sodium 145, potassium 4.8, chloride 111, bicarbonate 30, BUN 75, creatinine 1.7, glucose 242, calcium is 8.5 and iron is 44. IMPRESSION AND PLAN: Renal failure, chronic lung disease, sleep apnea syndrome, history of deep vein thrombosis, pulmonary embolism in the past, anxiety disorder, colorectal cancer with colostomy, diabetes and depression. Pulmonary point of view, doing okay. Continue current bilevel positive airway pressure use. Keep head at 45 degrees. Bronchodilator. Gastric prophylaxis. Sequential compression device to lower extremity. Careful with sedation. Deep vein thrombosis prophylaxis. Start physical therapy. Out of bed to chair if possible. Thank you and we will follow with you. Pamela Ayala MD
[2017-09-14] MEDS: Pantoprazole 20 mg EC Tab PO SCH ×2 (06:11→17:17)
[2017-09-14 06:35] VITALS: TEMP 98.3
[2017-09-14] MEDS: Metoprolol Succinate 100 mg XL Tab PO SCH (08:24)
[2017-09-14] MEDS: Insulin Lispro 1 UNITS/0.01 ML SC SCH ×3 (08:24→17:16)
[2017-09-14] MEDS: Insulin Reg-LOW-Coverage SC SCH ×3 (08:24→17:15)
--- NOTE | 2017-09-14 08:47 | CP.PCM.PN ---
<Yajaira Rice - Last Filed: 09/14/17 18:44> Subjective - Date & Time of Evaluation Date of Evaluation: 09/14/17 Time of Evaluation: 08:00 - Subjective Subjective: PGY-2 Heme/onc progress note Patient seen and examined at bedside. No acute distress. No acute events overnight per nurse. Patient states that she feels well today. She is eating well and tolerating diet. She is advised to avoid sugary foods due to her diabetes. She denies fever, sob, chest pain, abd pain, n/v. Patient is encouraged to have BIPAP overnight and to go oob to chair. Objective - Vital Signs/Intake and Output Vital Signs (last 24 hours): Temp Pulse Resp BP Pulse Ox 98.3 F 89 22 140/59 L 96 09/14/17 06:00 09/14/17 08:24 09/14/17 06:00 09/14/17 08:24 09/14/17 06:00 - Medications Medications: Current Medications Acetaminophen (Tylenol 325mg Tab) 650 mg PO Q6H PRN PRN Reason: Headache Albuterol/Ipratropium (Duoneb 3 Mg/0.5 Mg (3 Ml) Ud) 3 ml IH [id number] [facility] Last Admin: 09/14/17 08:09 Dose: 3 ml Amlodipine Besylate (Norvasc) 10 mg PO DAILY [facility] Last Admin: 09/13/17 10:07 Dose: 10 mg Aspirin (Ecotrin) 81 mg PO DAILY [facility] Last Admin: 09/13/17 10:05 Dose: 81 mg Atorvastatin Calcium (Lipitor) 40 mg PO DIN [facility] Last Admin: 09/13/17 18:07 Dose: 40 mg Calcium Acetate (Phoslo) 667 mg PO WM [facility] Last Admin: 09/14/17 08:25 Dose: 667 mg Clonidine HCl (Catapres) 0.1 mg PO Q4H PRN PRN Reason: Systolic Blood Pressure Last Admin: 09/14/17 06:11 Dose: 0.1 mg Enoxaparin Sodium (Lovenox) 30 mg SC DAILY [facility] Last Admin: 09/13/17 10:07 Dose: 30 mg Fluticasone Propionate (Flonase) 0 actuation NS DAILY [facility] Last Admin: 09/13/17 10:06 Dose: 1 spray Hydralazine HCl (Apresoline) 10 mg PO QID PRN PRN Reason: for sbp>170 Last Admin: 09/13/17 05:57 Dose: 10 mg Hydralazine HCl (Apresoline) 10 mg PO QID [facility] Last Admin: 09/13/17 22:01 Dose: 10 mg Hydromorphone HCl (Dilaudid) 4 mg PO Q4H PRN PRN Reason: Pain, severe (8-10) Last Admin: 09/13/17 01:58 Dose: 4 mg Insulin Detemir (Levemir) 40 unit SC BID [facility] Last Admin: 09/13/17 18:06 Dose: 40 unit Insulin Human Lispro (Humalog) 8 units SC AC [facility] Last Admin: 09/14/17 08:24 Dose: 8 units Insulin Human Regular (Humulin R Low) 0 units SC ACHS [facility] PRN Reason: Protocol Last Admin: 09/14/17 08:24 Dose: 1 units Isosorbide Mononitrate (Imdur) 60 mg PO DAILY [facility] Last Admin: 09/13/17 10:06 Dose: 60 mg Metoprolol Succinate (Toprol Xl) 100 mg PO BRK [facility] Last Admin: 09/14/17 08:24 Dose: 100 mg Montelukast Sodium (Singulair) 10 mg PO HS [facility] Last Admin: 09/13/17 22:00 Dose: 10 mg Pantoprazole Sodium (Protonix Ec Tab) 20 mg PO 0600,1600 [facility] Last Admin: 09/14/17 06:11 Dose: 20 mg Polysaccharide Iron Complex (Ferrex-150) 150 mg PO DAILY [facility] Last Admin: 09/13/17 10:05 Dose: 150 mg Pregabalin (Lyrica) 50 mg PO BID [facility] Last Admin: 09/13/17 18:07 Dose: 50 mg - Labs Labs: 09/12/17 06:30 09/13/17 06:40 - Constitutional Appears: No Acute Distress - Head Exam Head Exam: ATRAUMATIC, NORMAL INSPECTION, NORMOCEPHALIC - Eye Exam Eye Exam: EOMI, Normal appearance - ENT Exam ENT Exam: Mucous Membranes Moist - Respiratory Exam Respiratory Exam: Clear to Ausculation Bilateral, NORMAL BREATHING PATTERN. absent: Rhonchi, Wheezes, Respiratory Distress - Cardiovascular Exam Cardiovascular Exam: REGULAR RHYTHM, +S1, +S2. absent: Tachycardia, Murmur - GI/Abdominal Exam GI & Abdominal Exam: Soft, Normal Bowel Sounds. absent: Distended, Firm, Guarding, Tenderness - Extremities Exam Extremities Exam: Normal Inspection. absent: Pedal Edema, Tenderness - Back Exam Back Exam: NORMAL INSPECTION - Neurological Exam Neurological Exam: Alert, Awake, Oriented x3 - Skin Skin Exam: Dry, Intact, Normal Color, Warm Assessment and Plan - Assessment and Plan (Free Text) Assessment: 61 yo F with PMH of COPD, DM, HTN, CAD, unresectable rectal cancer s/p chemo/ rads tx and colostomy, morbid obesity with BMI 50, obstructive sleep apnea non- compliant with Bipap, and hx of severe pulmonary embolism on life-long anticoagulation s/p clot lysis and IVC filter placement who [place] [facility] [place] worsening shortness of breath x2-3 weeks. Patient was in TCU however was found to have increased weakness, lack of appetite and SHELBI. Patient was readmitted to telemetry for acute renal failure. SHELBI DM HTN CAD unresectable rectal cancer s/p chemo/rads tx and colostomy obstructive sleep apnea non-compliant with Bipap hx of severe pulmonary embolism on life-long anticoagulation s/p clot lysis and IVC filter placement Plan: - Renal function continues to improve - nephrology following - renal ultrasound- limited examination, no hydronephrosis and nephrolithiasis - GI following, recommended colonoscope once patient is optimized. Will consider CT scan of abdomen and pelvis when acute renal failure has improved. - Lower extremities ultrasound was negative for DVT - continue therapeutic anticoagulation - patient is doing better, she is hematologically stable - PT following patient - patient is encouraged to oob to chair and wear bipap at night Patient reviewed and discussed with attending, Dr. Faye <Maria Ines Faye P - Last Filed: 09/16/17 19:11> Objective - Vital Signs/Intake and Output Vital Signs (last 24 hours): Temp Pulse Resp BP Pulse Ox 98.3 F 87 18 161/59 H 99 09/14/17 12:00 09/14/17 17:16 09/14/17 12:00 09/14/17 17:16 09/14/17 08:00 - Labs Labs: 09/12/17 06:30 09/14/17 08:50 Attending/Attestation - Attestation I have personally seen and examined this patient.: Yes I have fully participated in the care of the patient.: Yes I have reviewed all pertinent clinical information, including history, physical exam and plan: Yes
[2017-09-14 09:19] LABS: CALCIUM 9.6 mg/dL (8.4-10.5)
[2017-09-14] MEDS: Insulin Detemir 100 units/ml Vial (Levemir) SC SCH ×2 (10:19→17:16)
[2017-09-14] MEDS: Enoxaparin 30 mg Syringe SC SCH (10:19)
[2017-09-14] MEDS: Iron Complex Polysacch 150mg Cap PO SCH (10:20)
[2017-09-14] MEDS: Fluticasone Nasal 50 mcg/Spray NS SCH (10:21)
--- NOTE | 2017-09-14 11:11 | CP.PCM.PN ---
Subjective - Date & Time of Evaluation Date of Evaluation: 09/14/17 Time of Evaluation: 08:20 - Subjective Subjective: Seen and examined at the bedside earlier today this morning, chart was reviewed. Patient is sleepy but easily arousable, denies nausea, vomiting, or abdominal pain tolerating oral intake. Currently colostomy is empty but reports stool yesterday. No blood noted. Had ultrasound of extremities, results pending. Objective - Vital Signs/Intake and Output Vital Signs (last 24 hours): Temp Pulse Resp BP Pulse Ox 98.3 F 97 H 22 150/65 96 09/14/17 06:00 09/14/17 10:20 09/14/17 06:00 09/14/17 10:20 09/14/17 06:00 - Medications Medications: Current Medications Acetaminophen (Tylenol 325mg Tab) 650 mg PO Q6H PRN PRN Reason: Headache Albuterol/Ipratropium (Duoneb 3 Mg/0.5 Mg (3 Ml) Ud) 3 ml IH [id number] [facility] Last Admin: 09/14/17 08:09 Dose: 3 ml Amlodipine Besylate (Norvasc) 10 mg PO DAILY [facility] Last Admin: 09/14/17 10:20 Dose: 10 mg Aspirin (Ecotrin) 81 mg PO DAILY [facility] Last Admin: 09/14/17 10:20 Dose: 81 mg Atorvastatin Calcium (Lipitor) 40 mg PO DIN [facility] Last Admin: 09/13/17 18:07 Dose: 40 mg Calcium Acetate (Phoslo) 667 mg PO WM [facility] Last Admin: 09/14/17 08:25 Dose: 667 mg Clonidine HCl (Catapres) 0.1 mg PO Q4H PRN PRN Reason: Systolic Blood Pressure Last Admin: 09/14/17 06:11 Dose: 0.1 mg Enoxaparin Sodium (Lovenox) 30 mg SC DAILY [facility] Last Admin: 09/14/17 10:19 Dose: 30 mg Fluticasone Propionate (Flonase) 0 actuation NS [facility]ILY [facility] Last Admin: 09/14/17 10:21 Dose: 2 spray Hydralazine HCl (Apresoline) 10 mg PO QID PRN PRN Reason: for sbp>170 Last Admin: 09/13/17 05:57 Dose: 10 mg Hydralazine HCl (Apresoline) 25 mg PO BID [facility] Last Admin: 09/14/17 10:20 Dose: 25 mg Hydromorphone HCl (Dilaudid) 4 mg PO Q4H PRN PRN Reason: Pain, severe (8-10) Last Admin: 09/13/17 01:58 Dose: 4 mg Insulin Detemir (Levemir) 40 unit SC BID [facility] Last Admin: 09/14/17 10:19 Dose: 40 unit Insulin Human Lispro (Humalog) 10 units SC AC [facility] Insulin Human Regular (Humulin R Low) 0 units SC ACHS [facility] PRN Reason: Protocol Last Admin: 09/14/17 08:24 Dose: 1 units Isosorbide Mononitrate (Imdur) 60 mg PO DAILY [facility] Last Admin: 09/14/17 10:20 Dose: 60 mg Metoprolol Succinate (Toprol Xl) 100 mg PO BRK [facility] Last Admin: 09/14/17 08:24 Dose: 100 mg Montelukast Sodium (Singulair) 10 mg PO HS [facility] Last Admin: 09/13/17 22:00 Dose: 10 mg Pantoprazole Sodium (Protonix Ec Tab) 20 mg PO 0600,1600 [facility] Last Admin: 09/14/17 06:11 Dose: 20 mg Polysaccharide Iron Complex (Ferrex-150) 150 mg PO DAILY [facility] Last Admin: 09/14/17 10:20 Dose: 150 mg Pregabalin (Lyrica) 50 mg PO BID [facility] Last Admin: 09/14/17 10:20 Dose: 50 mg Sitagliptin Phosphate (Januvia) 25 mg PO DAILY [facility] Last Admin: 09/14/17 10:20 Dose: 25 mg - Labs Labs: 09/12/17 06:30 09/14/17 08:50 - Constitutional Appears: No Acute Distress - Head Exam Head Exam: NORMOCEPHALIC - Eye Exam Eye Exam: Normal appearance. absent: Scleral icterus - ENT Exam ENT Exam: Mucous Membranes Moist - Respiratory Exam Respiratory Exam: NORMAL BREATHING PATTERN. absent: Respiratory Distress - Cardiovascular Exam Cardiovascular Exam: +S1, +S2 - GI/Abdominal Exam GI & Abdominal Exam: Soft, Normal Bowel Sounds. absent: Guarding, Tenderness, Rebound Additional comments: positive for colostomy currently no stool in the bag, no blood, area nontender - Extremities Exam Extremities Exam: absent: Calf Tenderness, Pedal Edema - Neurological Exam Neurological Exam: Awake, Oriented x3 - Skin Skin Exam: Dry, Warm Assessment and Plan - Assessment and Plan (Free Text) Assessment: Assessment: Acute on chronic renal failure, improving renal funtions Rectal carcinoma s/p chemo radiation w/ anterior resection, transverse colostomy and closure of mucous fistula Pulmonary hypertension Morbid Obesity DM Anemia H/O PE PLAN: diet as tolerated continue PPI, on Protonix 20 mg BID monitor H/H and overt GI bleeding On iron supplement On Lovenox as per renal, cardiology and pulmonary Would benefit colonoscopy at some point when patient is optimized , recent respiratory failure and history of pulmonary hypertension now in acute RF, consider CT scan of abdomen and pelvis when acute renal failure has improved. Seen and discussed w/ Dr. Benitez.
--- NOTE | 2017-09-14 11:18 | US ---
HISTORY: Leg pain and swelling. Evaluate for DVT PHYSICIAN(S): Raleigh Arevalo MD. TECHNIQUE: Duplex sonography and color-flow Doppler with graded compression were used to evaluate the deep venous systems of both lower extremities. The exam is very limited by body habitus and edema. The lower femoral veins and tibial veins are not adequately seen. FINDINGS: The visualized deep venous systems of both lower extremities are sonographically normal and compressible. Normal wave forms and augmentation are seen. There is no sonographic evidence for deep venous thrombosis in the visualized segments of both lower extremities. IMPRESSION: No sonographic evidence for deep venous thrombosis in the visualized segments of both lower extremities. Very limited study
[2017-09-14 12:12] VITALS: RESP 18
--- NOTE | 2017-09-14 13:53 | PN ---
DATE: 09/14/2017 SUBJECTIVE: The patient is seen lying in bed. She is awake. She is alert. She denies any chest pain. She denies any shortness of breath at present. PHYSICAL EXAMINATION: GENERAL: Obese middle-aged lady, lying in bed. VITAL SIGNS: Blood pressure 195/76?, heart rate 93, respiratory rate 18, temperature 98.3. HEENT: Normocephalic, atraumatic. NECK: Supple. No JVD. LUNGS: Bilateral equal air entry, bilateral equal expansion, no rales appreciated anteriorly. CARDIAC: S1 and S2, regular rate and rhythm, no murmur, no rub. Abdomen: Obese, distended, soft, nontender, positive colostomy, bowel sounds present. EXTREMITIES: No lower extremity edema. INTAKE AND OUTPUT: Not charted. LABORATORY DATA: Sodium 148, potassium 4.5, chloride 112, CO2 of 31, BUN 56, creatinine 1.3, glucose 145, calcium 9.6, magnesium 1.7. CURRENT MEDICATIONS: Apresoline 25 b.i.d., Catapres 0.5 every 4 p.r.n. given this morning, Dilaudid, DuoNeb, Ecotrin, Eliquis, Flonase, insulin, Januvia 25 mg, Levemir 40, Lipitor, Lyrica 50 b.i.d., amlodipine 10, PhosLo 667 t.i.d. ASSESSMENT: 1. Resolving acute kidney injury. 2. Underlying chronic kidney disease stage 2, suspect 3. Resolved hyperphosphatemia. 4. Prerenal azotemia, now euvolemic. 5. History of pulmonary edema. 6. Morbid obesity. 7. Fod-ivoaxaf-zcftwgyyw diabetes mellitus. 8. Severe hypertension. 9. History of rectal cancer, colostomy. PLAN: 1. Discontinue PhosLo. 2. Push p.o. free fluids. 3. Check phosphorus levels. 4. Out of bed to chair daily. 5. Monitor fingersticks. 6. Limit pain medication. 7. Discharge planning. Kristine Archibald MD
[2017-09-14 15:19] VITALS: O2SAT 99
--- NOTE | 2017-09-14 16:09 | PN ---
DATE: 09/12/2017 SUBJECTIVE: The patient is comfortable. She is feeling better. She is making urine. She started eating. Blood sugars started to coming up. No nausea, no vomiting, and seems doing well. PHYSICAL EXAMINATION: On 08/12/2017: VITAL SIGNS: As follows; temperature 98.3, heart rate 89, blood pressure 146/55, and respirations 20. HEAD AND NECK: Normal. No JVD. No thyromegaly. CHEST: Clear. Good air entry. CARDIAC: First sound and second sound normal. ABDOMEN: Soft, obese, and nontender. EXTREMITIES: No edema. NEUROLOGIC: Normal. LABORATORY STUDY: White count 9.6, hemoglobin 9.4, hematocrit 32.2, and platelets 277. Sodium 142, potassium 4.4, chloride 107, bicarb 28. BUN 100, creatinine 2.5. Blood sugar 279. Calcium 8.3, phosphorus 4.9, magnesium 2.1. Liver function test is normal. IMPRESSION AND PLAN: A 61-year-old female came in with; 1. Acute renal failure. The patient is improving with IV hydration, holding Lasix and holding ARBs. Creatinine going down to 2.5, which is better, came down from 4 down to 2.5 with continuation of fluid hydration. Monitor urine output and follow up with a printer's devil. 2. Hypertension, seems stable. We will keep monitor blood pressure. We will give her p.r.n. medication, clonidine p.r.n. for systolic above or equivalent to 70. 3. Rectal carcinoma, colostomy. The patient is stable. We will discuss with Dr. Benitez about possible colonoscopy. It seems he is not going to do at this time. We will need the silverware buffer as well as remelt worker to stabilize her for surgery for colonoscopy. 4. Insulin-dependent diabetes. Continue insulin. Monitor her sugar. We may increase insulin to 8 units or maybe 10 units before meals and increase her Lantus to 30 units b.i.d. may be more later on, depending on how the patient's appetite improving and how is the blood sugar values on fingerstick. 5. Hypercholesterolemia, hypertension, hypercoagulable state. We may consider resuming Eliquis. Currently on Lovenox 30 mg subcutaneous daily. 6. Chronic back pain, chronic disk disease, and sciatica. Continue Dilaudid p.r.n. 7. Chronic obstructive pulmonary disease, obstructive sleep apnea, morbid obesity. Continue inhaled bronchodilators and follow up with remelt worker Dr. Ayala. At this time, continue current therapy. Follow up clinically. Regarding her cardiac condition, she is stable. She has coronary artery disease, history of chronic diastolic heart failure. Monitor lung status and monitor her status and we will continue to monitor with the silverware buffer. Elroy Florian MD
[2017-09-14 17:17] VITALS: BP 161/59; PULSE 87
--- NOTE | 2017-09-14 17:38 | PN ---
DATE: 09/14/2017 LOCATION: The patient in room 375, bed 1. REASON FOR CONSULTATION AND FOLLOWUP: Cardiac evaluation, admitted with swelling of the body, acute kidney injury, history of coronary artery disease, history of stent insertion in the past. SUBJECTIVE: The patient denies any chest pain, shortness of breath, palpitation. The patient is lying flat at bed without any cardiac symptoms. PHYSICAL EXAMINATION: VITAL SIGNS: Blood pressure 140/59, respirations 18, pulse 89, the patient is afebrile. HEENT: Head is normocephalic. Eyes: Pupils normal. Conjunctivae slightly pale. NECK: JVP low. Carotids equal. THORAX: AP diameter normal. LUNGS: A few fine rales on the left base, otherwise lungs are clear. CARDIOVASCULAR: S1 and S2. ABDOMEN: Protuberant. The patient has colostomy bag. No organomegaly. Bowel sound normal. EXTREMITIES: No clubbing. No cyanosis. LABORATORY DATA: WBC 9.6, hemoglobin 9.4, hematocrit 32.2, platelets 277. Sodium 148, potassium 4.5, BUN 56, creatinine 1.3, random sugar 155, calcium 9.6, magnesium 1.7. DIAGNOSES: Uncontrolled hypertension, acute kidney injury, diabetes, hyperlipidemia, morbid obesity, history of coronary artery disease, status post stent insertion many years ago, history of colorectal cancer, status post colostomy. Stent was put in 4 years ago, bare metal stent. History of deep vein thrombosis, history of pulmonary embolism. The patient was on Xarelto at one point. Now, the patient on Eliquis and aspirin. PLAN: The patient's BUN and creatinine continued to improve. Recent echo showed on 09/01/2017, normal LV function. Plan is to continue aspirin and Eliquis. The patient's hydralazine has been changed to 25 mg p.o. b.i.d. starting today. Iron polysaccharide 150 mg p.o. daily, insulin as ordered, isosorbide mononitrate 60 daily, Januvia 25 mg daily, Lipitor 40 daily, Lyrica 50 mg b.i.d., amlodipine 10 daily, Singulair 10 mg at bedtime, metoprolol succinate 100 mg p.o. daily. We will continue to avoid nephrotoxic medications. We will follow. Pamela Hernandez MD
--- NOTE | 2017-09-14 22:32 | PN ---
DATE: PULMONARY PROGRESS NOTE REFERRING PHYSICIAN: Elroy Florian MD. SUBJECTIVE: She is lying in the bed, head at 45 degrees. Much more awake and alert. Nursing staff is at bedside. Being accepted in TICU to continue care. Not very compliant with the CPAP and BiPAP. No chest pain, no nausea, no vomiting, no diarrhea. No leg pain, no leg swelling. OBJECTIVE: GENERAL: In no acute distress. VITAL SIGNS: Temp is 98, heart rate is 101, respiratory rate is 18, blood pressure 195/76, pulse ox 99% on 2 L nasal cannula. HEENT: Moist mucous membrane. Crowded airway. Mallampati score is 4. NECK: Short, thick neck. LUNGS: Have a fair airflow with rhonchi. HEART: S1 and S2. ABDOMEN: Soft, nontender, nondistended. Colostomy bag had no stool. EXTREMITIES: There is no edema. NEUROLOGICAL: Awake and alert. Follows simple command. MEDICATIONS: She is on hydralazine 10 mg four times daily p.r.n., also 25 mg twice a day round the clock; clonidine 0.1 mg every 4 hours p.r.n; Dilaudid 0.4 mg every 4 hour p.r.n.; DuoNeb every 6 hours round the clock; Ecotrin 81 mg daily; Eliquis 2.5 mg twice a day; Ferrex 150 mg daily; Flonase one spray to each nostril daily; insulin coverage, Imdur 60 mg daily, Januvia 25 mg daily, Levemir 40 units subcu twice a day; Lipitor 40 mg daily; Lyrica 50 mg twice a day; Norvasc 10 mg daily; Protonix 20 mg twice a day; Singulair 10 mg daily; Toprol-XL 100 mg daily; Tylenol p.r.n. basis. LABORATORY DATA: Shows sodium 148, potassium 4.5, chloride 112, bicarbonate 31, BUN 56, creatinine 1.3, glucose 145, calcium is 9.6, phosphorus 2.7, magnesium 1.7. IMPRESSION AND PLAN: Renal failure, chronic lung disease, sleep apnea syndrome, history of deep venous thrombosis, pulmonary embolism in the past, anxiety disorder, colorectal cancer with colostomy, diabetes, depression, activities of daily living dysfunction, daytime hypersomnia, noncompliant with the CPAP and BiPAP and discussed the risk-benefit ratio. We will add daytime stimulant. Also spoke to nursing staff. Patient expressed willing that she will be compliant with therapy, would like to go home, and wanted to get back on her feet. Fall precaution. Thank you and we will follow with you. Pamela Ayala MD
== END 2017-09-14 17:43 | DRG 683 ==
LOC: ED 14:40 → ERH 15:25 → 3RSO 18:08
PROVIDERS: ADMIT Internal Medicine; ATTEND Internal Medicine
PROC: 3E0F7GC Introduction of Other Therapeutic Substance into Respiratory Tract, Via Natural or Artificial Opening (ICD-10-PCS; principal; 2017-09-11)
DX: N17.9 Acute kidney failure, unspecified (principal); I50.42 Chronic combined systolic (congestive) and diastolic (congestive) heart failure; I13.0 Hypertensive heart and chronic kidney disease with heart failure and stage 1 through stage 4 chronic kidney disease, or unspecified chronic kidney disease; Z68.43 Body mass index [BMI] 50.0-59.9, adult; C20 Malignant neoplasm of rectum; E66.01 Morbid (severe) obesity due to excess calories; E11.22 Type 2 diabetes mellitus with diabetic chronic kidney disease; J44.9 Chronic obstructive pulmonary disease, unspecified; N18.3 Chronic kidney disease, stage 3 (moderate); N25.81 Secondary hyperparathyroidism of renal origin; I27.20 Pulmonary hypertension, unspecified; I25.10 Atherosclerotic heart disease of native coronary artery without angina pectoris; D63.1 Anemia in chronic kidney disease; G47.33 Obstructive sleep apnea (adult) (pediatric); E78.00 Pure hypercholesterolemia, unspecified; E86.0 Dehydration; F41.9 Anxiety disorder, unspecified; M54.30 Sciatica, unspecified side; F40.240 Claustrophobia; G89.29 Other chronic pain; F32.9 Major depressive disorder, single episode, unspecified; Z91.19 Patient's noncompliance with other medical treatment and regimen; Z79.4 Long term (current) use of insulin; Z93.3 Colostomy status; Z86.718 Personal history of other venous thrombosis and embolism; Z86.711 Personal history of pulmonary embolism; Z79.01 Long term (current) use of anticoagulants; Z92.3 Personal history of irradiation; Z92.21 Personal history of antineoplastic chemotherapy; Z95.5 Presence of coronary angioplasty implant and graft

== ENCOUNTER 2017-09-14 17:43 | Inpatient (IN) | payer MEDICAID, OTHER ==
[2017-09-14] MEDS: Insulin Detemir 100 units/ml Vial (Levemir) SC SCH (22:49)
[2017-09-14] MEDS: Insulin Reg-LOW-Coverage SC SCH (22:50)
[2017-09-15] MEDS: Albuterol-Ipratrop 3 mg / 0.5 (3 ml) UD IH SCH ×5 (00:07→23:30)
[2017-09-15] MEDS: Pantoprazole 20 mg EC Tab PO SCH ×2 (06:05→17:17)
[2017-09-15] MEDS: Insulin Lispro 1 UNITS/0.01 ML SC SCH ×3 (06:52→17:17)
[2017-09-15] MEDS: Insulin Reg-LOW-Coverage SC SCH ×4 (06:55→21:41)
[2017-09-15] MEDS: Metoprolol Succinate 100 mg XL Tab PO SCH (08:27)
--- NOTE | 2017-09-15 08:48 | PN ---
DATE: SUBJECTIVE: The patient is currently seen in the TCU. She was transferred from acute care. She is currently stable, eating breakfast. Her BUN and creatinine have returned to baseline levels with BUN of 43 and a creatinine of 1.3. This is status post IV fluid hydration for severe prerenal azotemia. MEDICATIONS: Medication list reviewed. The patient is currently on hydralazine, Dilaudid, DuoNeb, Ecotrin, Eliquis, Ferrex, Flonase, insulin, Imdur, Januvia, Lipitor, Lyrica, Norvasc, Protonix, Singulair, Toprol and Tylenol. OBJECTIVE: VITAL SIGNS: Blood pressure is 161/78, heart rate is 100. Temperature 97.9 with respiratory rate of 22. HEENT: Shows her to be normocephalic, atraumatic. Conjunctivae are pale. Sclerae nonicteric. NECK: Supple. No neck vein distention. CHEST: Clear to auscultation and percussion. No rales, rhonchi or wheezing. CARDIOVASCULAR: Shows a regular rate and rhythm without audible murmurs, rubs or gallops. ABDOMEN: Soft. Obese. Positive colostomy. Bowel sounds are normal. EXTREMITIES: Show no lower extremity cyanosis, clubbing or edema. LABORATORY DATA AND IMAGING: Chemistries from this morning showed a BUN of 43 with a creatinine of 1.3. Her baseline BUN is below 30. Her baseline creatinine is in the 1.2-1.3 range, so she is at baseline levels. CBC is pending. ASSESSMENT: 1. Acute renal failure superimposed on chronic kidney disease stage 3. This has resolved nicely with cautious administration of IV fluid hydration. The patient does have a history of congestive heart failure. So perhaps prior to discharge, she will need to be placed back on low-dose diuretic therapy. 2. History of chronic kidney disease stage 3, likely secondary to diabetes. 3. History of atherosclerotic heart disease, status post percutaneous transluminal coronary angioplasty and stent, stable. 4. History of hypertension. Avoid angiotensin-converting enzyme inhibitors. Avoid angiotensin receptor blockers. Continue to monitor blood pressure and adjust medications accordingly. She is presently on a calcium channel joseph, hydralazine, nitrates and beta joseph therapy. 5. History of obstructive sleep apnea. The patient uses continuous positive airway pressure therapy at night. 6. History of rectal cancer, status post partial colectomy with colostomy. 7. History of hyperlipidemia, on diet and statin therapy. 8. History of anemia, likely secondary to chronic kidney disease. Repeat CBC levels in the Transitional Care Unit. 9. History of secondary hyperparathyroidism. The patient was started on binder therapy. This was discontinued. Repeat calcium and phosphorus levels. PLAN: 1. Continue to monitor vital signs, daily weights in the TCU. 2. Continue renal diet. 3. Check labs on a routine basis. 4. Evaluate for possible reinstitution of low-dose diuretic therapy to prevent CHF and pulmonary edema as her BUN and creatinine have returned to baseline levels. Osman Perea MD
[2017-09-15] MEDS: Iron Complex Polysacch 150mg Cap PO SCH (10:58)
[2017-09-15] MEDS: Insulin Detemir 100 units/ml Vial (Levemir) SC SCH ×2 (10:59→17:19)
[2017-09-15] MEDS: Fluticasone Nasal 50 mcg/Spray NS SCH (10:59)
--- NOTE | 2017-09-15 23:43 | CON ---
DATE: CARDIOLOGY CONSULT REASON FOR CONSULTATION: History of coronary artery disease, colorectal CA status post resection with permanent colostomy and improved renal insufficiency. HISTORY OF PRESENT ILLNESS: The patient is a 61-year-old [place] female, who has history of hypertension, diabetes mellitus, history of colorectal cancer status post resection with permanent colostomy, history of coronary artery disease status post coronary stenting, circumflex artery prior to her pelvic surgery few years ago and history of pulmonary embolism around the time of surgery. The patient was admitted on the 09/10/2017, because of shortness of breath and was found to be an acute renal failure. The patient's initial BUN and creatinine on the were 106 and 4.1 respectively and upon discharge yesterday they were 43 and 1.3 respectively. At this time, the patient is in TCU, denies any chest pain. She is mildly short of breath. SOCIAL HISTORY: Nonsmoker, nondrinker. She is . She has 1 son, who is . MEDICATIONS: Current medications, hydralazine 10 mg p.o. four times a day, Dilaudid 4 mg p.o. every 4 hours p.r.n., albuterol inhaler every 6 hours, aspirin 81 mg once a day, Eliquis 2. 5 mg twice a day, Ferrex 150 p.o. daily, Flonase, Humalog insulin, Imdur 60 mg once a day, Januvia 25 mg once a day, Lipitor 40 mg once a day, Lyrica 25 mg twice a day, Norvasc 10 mg once a day, Toprol XL 100 mg once a day. REVIEW OF SYSTEMS: No nausea or vomiting, no fever or chills, no recent diarrhea. PHYSICAL EXAMINATION GENERAL: The patient is morbid obese, middle-aged female, who does not appear to be in any acute distress. VITAL SIGNS: Blood pressure 171/75, heart rate 109, temperature 98.6, respirations 22. HEENT: Normocephalic. CHEST: Clear. HEART: S1 and S2 regular. EXTREMITIES: Trace leg edema. LABORATORY DATA: Yesterday's hemoglobin and hematocrit were 9.4 and 32.2 respectively, white count and platelet count are within normal limits. Yesterday's SMA-7: Sodium 146, potassium 4.3, chloride 109, CO2 of 31, glucose 154, BUN 46, creatinine 1.3. Echocardiogram study in 09/01/2017, i.e., two weeks ago, moderate concentric LVH with normal ejection fraction and normal segmental wall motion with reduced compliance. EKG 2 weeks ago revealed normal sinus rhythm. ASSESSMENT: 1. Coronary artery disease status post circumflex artery stenting few years ago. The patient is currently chest pain free. 2. Improved renal insufficiency. 3. History of colorectal cancer status post resection with permanent colostomy. 4. Diabetes mellitus. 5. Morbid obesity. 6. Mild anemia. RECOMMENDATIONS: Continue current hydralazine, aspirin, Eliquis, Ferrlecit, Imdur, Lipitor, Norvasc and Toprol XL. Start subcutaneous heparin 5000 units twice a day. Obtain 12-lead EKG. Gildardo Barry MD
[2017-09-16] MEDS: Pantoprazole 20 mg EC Tab PO SCH ×2 (05:27→17:31)
[2017-09-16 06:08] LABS: ALB/GLOB RATIO 0.9 (1.1-1.8); CALCIUM 9.1 mg/dL (8.4-10.5)
[2017-09-16 06:19] LABS: HEMOGLOBIN 9.1 g/dL (12.0-16.0); MEAN CELL VOLUME 86.8 fl (80.0-105.0); MEAN CORPUSCULAR HEMOGLOBIN 26.1 pg (25.0-35.0); MEAN CORPUSCULAR HGB CONC 30.1 g/dl (31.0-37.0); MEAN PLATELET VOLUME 11.4 fl (7.0-11.0); RBC 3.48 10^6/uL (3.5-6.1); RED CELL DISTRIBUTION WIDTH 15.1 % (11.5-14.5); WHITE BLOOD COUNT 7.6 10^3/ul (4.5-11.0)
[2017-09-16] MEDS: Insulin Lispro 1 UNITS/0.01 ML SC SCH ×3 (06:38→17:32)
[2017-09-16] MEDS: Insulin Reg-LOW-Coverage SC SCH ×4 (06:38→22:10)
--- NOTE | 2017-09-16 06:54 | CON ---
DATE: PULMONARY CONSULTATION REFERRING PHYSICIAN: Dr. Florian. REASON FOR CONSULTATION: Sleep apnea syndrome, acute bronchitis, chronic lung disease. HISTORY OF PRESENT ILLNESS: This is a 61-year-old obese female well known to me from [facility] [address] with multiple medical issues including chronic lung disease, morbid obesity, may have sleep apnea syndrome, renal failure, hyperlipidemia, hypertension, coronary artery disease, history of colorectal cancer requiring laparotomy and colostomy, originally admitted to [facility] with respiratory failure with CO2 retention, hypoxemia, was at [facility], became lethargic, found to have renal failure, had a very poor p.o. intake, necessitated with the fluid, improved, then back to [facility]. She is lying in the bed, feels tired, done well, was in chair today, but noncompliant with CPAP/BiPAP, daytime sleepy and tired. No nausea or vomiting. No diarrhea. No leg pain or leg swelling. Past medical history: As per history present illness. ALLERGIES: NONE KNOWN. SOCIAL HISTORY: Nonsmoker, nondrinker. FAMILY HISTORY: No significant cardiopulmonary disease reported. MEDICATIONS: She is on hydralazine 25 mg four times a day., Dilaudid 4 mg p.o. every 4 hours p.r.n. DuoNeb every 6 hours, Ecotrin 81 g daily, Eliquis 2.5 mg twice a day, Ferrex 150 mg daily, Flonase one spray to each nostril daily, insulin coverage, Imdur 60 mg daily, Januvia 25 mg daily, Levemir 40 units subcu twice a day, Lipitor 40 mg daily, Lyrica 25 mg twice a day, Norvasc 10 mg daily, Protonix 20 mg twice a day, Singulair 10 mg at bedtime, Toprol-XL 40 mg daily, Tylenol p.r.n. basis REVIEW OF SYSTEMS: No headache, no rhinitis. No significant cough or short of breath, sputum production. No chest pain. No nausea, no vomiting. Colostomy bag working well. No leg pain or leg swelling. PHYSICAL EXAMINATION: GENERAL: Lying in the bed, in no acute distress. VITAL SIGNS: Temperature is 98, heart rate 92, respiratory rate is 22, blood pressure 176/78, pulse ox 98% on nasal cannula. HEENT: Moist mucous membrane. Crowded airway. Mallampati score is IV. NECK: Supple. No JVD. LUNGS: Have fair airflow with rhonchi. HEART: S1 and S2. ABDOMEN: Soft, nontender. Colostomy bag working well. EXTREMITIES: There is no edema. NEUROLOGIC: Awake and alert, follows simple commands. LABORATORY DATA: Shows hemoglobin 9.4, hematocrit 32.2, WBC 9.6, platelet is 277. Sodium 146, potassium 4.3, chloride 109, bicarbonate 31, BUN 43, creatinine 1.3, glucose 154, calcium is 9.0. Urinalysis is unremarkable. Microbiology, urine culture, there is no growth. IMPRESSION AND PLAN: Renal failure, chronic obstructive lung disease, sleep apnea syndrome, history of deep venous thrombosis, pulmonary embolism in the past, anxiety disorder, colorectal cancer requiring colostomy, diabetes, depression, activity of daily living dysfunction, daytime hypersomnia, noncompliant with continuous positive airway pressure and bilevel positive airway pressure. Pulmonary point of view, doing okay. We will add inhaled bronchodilator. Keep head at 45 degrees. Encourage bilevel positive airway pressure use and a daytime stimulant. Out of bed to chair, physical therapy. Fall precaution. Follow up labs the morning. Thank you and we will follow with you. Pamela Ayala MD
[2017-09-16] MEDS: Albuterol-Ipratrop 3 mg / 0.5 (3 ml) UD IH SCH ×3 (07:31→21:36)
[2017-09-16] MEDS: Metoprolol Succinate 100 mg XL Tab PO SCH (08:05)
--- NOTE | 2017-09-16 08:38 | RAD ---
HISTORY: SOB COMPARISON: 09/03/2017 TECHNIQUE: Chest PA and lateral FINDINGS: LUNGS: No active pulmonary disease. PLEURA: No significant pleural effusion identified. No pneumothorax apparent. CARDIOVASCULAR: Right central venous infusion port OSSEOUS STRUCTURES: No significant abnormalities. VISUALIZED UPPER ABDOMEN: Normal. OTHER FINDINGS: None. IMPRESSION: No active disease.
--- NOTE | 2017-09-16 09:22 | CARD ---
APPROVED REPORT EKG Measurement Heart [id number] <Conclusion> Sinus tachycardia Minimal voltage criteria for LVH, may be normal variant No change except increased voltage.
--- NOTE | 2017-09-16 10:09 | PN ---
DATE: SUBJECTIVE: The patient is currently seen sitting in a chair in the TCU. She is entirely comfortable. She has returned back to her baseline BUN and creatinine post IV fluid hydration for severe prerenal azotemia. MEDICATIONS Medication list reviewed. The patient is on Apresoline, p.r.n. Dilaudid, inhalation therapy with albuterol, Ecotrin, Eliquis, Ferrex, Flonase, insulin, Imdur, Januvia, Lipitor, Lyrica, Norvasc, Nuvigil, Protonix, Singulair, Toprol and p.r.n. Tylenol. OBJECTIVE VITAL SIGNS: Blood pressure 142/63, temperature 97.9, pulse of 84. Oxygen saturation is 93%. HEENT: Normocephalic, atraumatic. Conjunctivae remain pale. Sclerae nonicteric. NECK: Supple. No neck vein distention. CHEST: Clear to auscultation and percussion. No rales, rhonchi or wheezing. CARDIOVASCULAR: Shows a regular rate and rhythm without audible murmurs. No rubs or gallops. ABDOMEN: Soft. Positive colostomy, obese. Bowel sounds are normal. EXTREMITIES: Show no lower extremity cyanosis, clubbing or edema. LABORATORY DATA AND IMAGING: CBC: White blood cell count today 7.6, hemoglobin 9.1 which is stable. Platelet count is 221,000. Chemistries from today shows BUN of 36 with a creatinine of 1.4. Electrolytes were all within normal limits. Glucose is 183. Calcium 9.1, phosphorus 2.8. Magnesium level is low at 1.3 and will be supplemented. ASSESSMENT 1. Acute renal failure superimposed on chronic kidney disease stage III. This has resolved. The patient responded nicely to intravenous fluid hydration given cautiously because of her history of congestive heart failure. 2. History of chronic kidney disease stage III, likely secondary to diabetes. 3. History of atherosclerotic heart disease, status post percutaneous transluminal coronary angioplasty and stent, stable. 4. History of hypertension. Avoid ESTEVAN inhibitors and angiotensin receptor blockers. Continue to monitor blood pressure and adjust her medications accordingly. The patient is presently on calcium channel joseph therapy, hydralazine, nitrates and beta joseph therapy. 5. History of obstructive sleep apnea, on CPAP therapy. 6. History of rectal cancer, status post partial colectomy with colostomy. 7. History of hyperlipidemia, on diet and statin therapy. 8. History of anemia in part secondary to chronic kidney disease. Repeat CBC showed hemoglobin of 9.1. The patient would benefit from Aranesp along with oral iron supplementation which she is receiving. 9. History of secondary hyperparathyroidism. The patient will continue on a renal diet. We will assess the need for binder therapy with future labs. Her last phosphorus level was excellent at 2.8. 10. Hypomagnesemia. The patient will receive oral magnesium supplements. PLAN: 1. Continue renal diet. 2. Continue rehabilitation in the TCU. 3. For right now, keep the patient off diuretic therapy, but she might need low-dose diuretic therapy upon discharge as the patient does have a history of CHF and chronic kidney disease stage III. 4. Supplement magnesium accordingly. 5. Start the patient on Aranesp and continue oral iron therapy. Osman Perea MD
[2017-09-16] MEDS: Fluticasone Nasal 50 mcg/Spray NS SCH (10:25)
[2017-09-16] MEDS: Iron Complex Polysacch 150mg Cap PO SCH (10:25)
[2017-09-16] MEDS: Insulin Detemir 100 units/ml Vial (Levemir) SC SCH ×2 (10:26→17:34)
[2017-09-16] MEDS: Magnesium Oxide 400 mg Tab UD PO SCH ×2 (10:27→17:34)
--- NOTE | 2017-09-16 14:29 | PN ---
DATE: FOLLOWUP SUBJECTIVE: The patient denies chest pain. She did experience worsening shortness of breath and she had to sleep on a recliner last night. She is also reporting worsening of the leg swelling. PHYSICAL EXAMINATION: VITAL SIGNS: Blood pressure 176/83, heart rate 83, temperature 98.1, respirations 20. HEENT: Pale conjunctivae. CHEST: No rales. HEART: S1 and S2 regular and distant. ABDOMEN: Soft. EXTREMITIES: 2+ pitting edema. LABORATORY DATA: SMA-7: Sodium 144, potassium 4.2, chloride 107, CO2 of 31, glucose 183, BUN 36, creatinine 1.4. Today's hemoglobin and hematocrit 9.1 and 38.2. White count and platelet count are within normal limit. Chest x-ray revealed cardiomegaly with mild CHF. EKG yesterday revealed sinus tachycardia at rate 105 with minimal voltage criteria for LVH. I did review the pulmonary consult by Dr. Ayala and his impression was chronic obstructive lung disease and sleep apnea with history of DVT and pulmonary embolism. Bronchodilators were added and the head would be kept at 45 degrees angle. Encourage bilevel positive airway pressure use and daytime stimulant. ASSESSMENT: 1. Coronary artery disease with history coronary artery stenting in the past. 2. Mild renal insufficiency. 3. Morbid obesity. 4. Sleep apnea and chronic obstructive lung disease. 5. Diabetes mellitus. 6. Mild anemia. RECOMMENDATIONS: Continue hydralazine 25 mg four times daily. Clonidine was increased to 0.1 mg every 6 hours today. Continue aspirin and Eliquis therapy. Continue Norvasc 10 mg once a day, Toprol-XL 100 mg once a day. Start Zaroxolyn 2.5 mg orally daily. Gildardo Barry MD
[2017-09-16] MEDS: metOLazone 2.5 MG TAB PO SCH (15:04)
--- NOTE | 2017-09-16 21:27 | PN ---
DATE: PULMONARY PROGRESS NOTE REFERRRING PHYSICIAN: Elroy Florian M.D. SUBJECTIVE: She is out of bed to chair. Slept on reclining chair last night, refusing to use CPAP/BiPAP. No headache, no rhinitis. Short of breath with minimal exertion. No chest pain. No nausea, no vomiting. Colostomy bag working well. No leg pain or leg swelling. OBJECTIVE: GENERAL: In no acute distress. VITAL SIGNS: Temperature is 98, heart rate is 90, respiratory rate is 20, blood pressure 185/69, pulse ox 98% on nasal cannula. HEENT: Moist mucous membrane. Crowded airway. Mallampati score is 4. NECK: Supple. No JVD. LUNGS: Has fair airflow with few rhonchi. HEART: S1 and S2. ABDOMEN: Soft, nontender. No organomegaly. Colostomy bag working well. EXTREMITIES: No edema. NEUROLOGIC: Awake and alert. Follows simple command. MEDICATIONS She is on hydralazine 50 mg three times a day, Aranesp 60 mcg was given, Catapres 0.1 mg q.6 hours p.r.n., Dilaudid 4 mg q.6 hours p.r.n., DuoNeb q.6 hours [id number], Ecotrin 81 mg daily, Eliquis 5 mg twice a day, Ferrex 150 mg daily, Flonase one spray to each nostril daily, insulin coverage, Imdur 60 mg daily, Januvia 25 mg daily, Levemir 40 units subcu , Lyrica 50 mg twice a day, magnesium oxide 400 mg twice a day, Norvasc 10 mg daily, Nuvigil 150 mg daily, Protonix 20 mg twice a day, Singulair 10 mg daily, Toprol-XL 100 mg daily, Tylenol p.r.n. basis, Zaroxolyn 2.5 mg daily. LABORATORY DATA: Reviewed. No new lab is available since yesterday. IMPRESSION AND PLAN: Renal failure, which is slowly improving, chronic obstructive lung disease, sleep apnea syndrome, history of deep vein thrombosis, pulmonary embolism, anxiety disorder, colorectal cancer requiring laparotomy and colostomy, diabetes, depression, activities of daily living dysfunction, daytime hypersomnia, noncompliant with CPAP overnight. Spoke to nursing. We will continue current CPAP use. Keep head at 45 degrees. Avoid nocturnal sedation. Continue daytime stimulant. Fall precaution. Follow up blood pressure closely. Thank you and we will follow with you. Pamela Ayala MD
[2017-09-17] MEDS: Albuterol-Ipratrop 3 mg / 0.5 (3 ml) UD IH SCH ×2 (03:00→07:59)
[2017-09-17] MEDS: Pantoprazole 20 mg EC Tab PO SCH ×2 (05:32→15:18)
[2017-09-17 06:07] LABS: HEMOGLOBIN 9.5 g/dL (12.0-16.0); MEAN CELL VOLUME 86.1 fl (80.0-105.0); MEAN CORPUSCULAR HEMOGLOBIN 26.5 pg (25.0-35.0); MEAN CORPUSCULAR HGB CONC 30.7 g/dl (31.0-37.0); MEAN PLATELET VOLUME 11.1 fl (7.0-11.0); RBC 3.59 10^6/uL (3.5-6.1); RED CELL DISTRIBUTION WIDTH 14.9 % (11.5-14.5); WHITE BLOOD COUNT 7.7 10^3/ul (4.5-11.0)
[2017-09-17 06:29] VITALS: BMI 50.4
[2017-09-17] MEDS: Insulin Lispro 1 UNITS/0.01 ML SC SCH ×3 (06:31→17:44)
[2017-09-17] MEDS: Insulin Reg-LOW-Coverage SC SCH ×4 (06:32→22:27)
[2017-09-17 06:39] LABS: ALBUMIN 3.2 g/dL (3.0-4.8)
[2017-09-17] MEDS: Metoprolol Succinate 100 mg XL Tab PO SCH (07:59)
[2017-09-17] MEDS: Iron Complex Polysacch 150mg Cap PO SCH (09:26)
[2017-09-17] MEDS: Fluticasone Nasal 50 mcg/Spray NS SCH (09:27)
[2017-09-17] MEDS: Insulin Detemir 100 units/ml Vial (Levemir) SC SCH ×2 (09:27→17:44)
[2017-09-17] MEDS: Magnesium Oxide 400 mg Tab UD PO SCH ×2 (09:28→17:47)
[2017-09-17] MEDS: metOLazone 2.5 MG TAB PO SCH (09:34)
[2017-09-17] MEDS ORDERED: Darbepoetin Alfa 60 mcg/ml Inj SC ONE (10:00)
--- NOTE | 2017-09-17 12:01 | PN ---
DATE: SUBJECTIVE: The patient was admitted to TCU. This is a 61-year-old female, morbidly obese patient. The patient had acute renal failure and was admitted to medical floor, seen by skiver [employer]ings and her kidney function improved slowly with IV hydration. The patient did well and her breathing seemed stable and we will admit the patient to TCU for further evaluation and treatment. PHYSICAL EXAMINATION VITAL SIGNS: On admission on 09/15/2017, temperature 97.7, heart rate was 100, blood pressure was 157/67, respirations 22. HEAD AND NECK: Normal. No JVD, no thyromegaly. CHEST: Clear bilaterally. CARDIAC: First sound and second sound normal. ABDOMEN: Soft, obese, nontender. EXTREMITIES: There is mild edema of both legs. NEUROLOGICAL: General weakness, nonfocal. LABORATORY DATA: When she came in, white count 7.6, hemoglobin 9.1, hematocrit 30.2, platelets 221. Her chemistry was noted for blood sugar of 150s, while her sodium was 146, potassium 4.3, chloride 109, bicarbonate 31, BUN 43, creatinine 1.3, blood sugar 154, calcium 9. MEDICATIONS: Medication ji, the patient is getting all the following medications: Hydralazine, was getting 10 mg t.i.d.; getting Dilaudid p.r.n.; Ecotrin 81; Eliquis 2.5 b.i.d., was replaced from Lovenox and will be increased accordingly; iron pills p.o. daily; Flonase; Humalog was 10 units a.c. meals; Imdur 60 mg daily; Januvia 25 mg daily; Levemir 40 units b.i.d.; Lipitor 40 p.o. at bedtime; Lyrica 50 p.o. b.i.d.; mag oxide; Norvasc 10; Nuvigil 150 and she received pneumococcal vaccine, Protonix 20 b.i.d., Singulair 10, Toprol-XL 100, Tylenol 650 and we will follow up clinically. IMPRESSION AND PLAN 1. Acute renal failure, improving. Continue to monitor her creatinine. 2. The patient has generalized weakness, deconditioning. We will do physical therapy. 3. Coronary artery disease, congestive heart failure, obstructive sleep apnea, chronic obstructive pulmonary disease. We will continue current medications, continue inhalers, bronchodilators and aspirin. 4. Hypertension, uncontrolled. We will titrate the medications, blood pressure medicines accordingly. We will monitor clinically. 5. Diabetes, insulin dependent. Continue Levemir, Humalog and insulin coverage. We will follow up clinically. Elroy Florian MD
--- NOTE | 2017-09-17 13:02 | PN ---
DATE: 09/16/2017 SUBJECTIVE: The patient seems stable, feels better, seen by Dr. Barry, Cardiology consult in the case. She has no chest pain. She does feel weak and otherwise no new complaint. PHYSICAL EXAMINATION: VITAL SIGNS: Temperature 98.1, heart rate 83, blood pressure 176/83, respirations 20, saturation 98% on room air. HEAD AND NECK: Normal. No JVD. No thyromegaly. CHEST: Clear. Good air entry. CARDIAC: First sound and second sound normal. ABDOMEN: Soft, obese, nontender. EXTREMITIES: Mild edema bilaterally. NEUROLOGICAL: The patient is able to walk by the walker, go to the bathroom by herself, which is much better. LABORATORY DATA: Shows sodium 144, potassium 4.2, chloride 107, bicarbonate 31, BUN 36, creatinine 1.4, blood sugars 183. CBC shows white count 7.6, hemoglobin 9.1, hematocrit 30.2, and platelets 221. IMPRESSION AND PLAN: 1. Acute renal failure, improving. Continue current therapy. The patient is off Lasix now. 2. Generalized weakness. Continue physical therapy. 3. Hypertension, uncontrolled. We will increase hydralazine to 25, then 50 if continue to be high and we will add clonidine 0.1 every 6 hours p.r.n and we will see how the patient does. 4. Chronic back pain, sciatica. Continue Dilaudid, continue Lyrica and continue physical therapy. 5. Hypercoagulable state, history of pulmonary embolism and deep venous thrombosis. Her creatinine 1.4. Her body weight is high, she is 61. We will go ahead and increase the Eliquis from 2.5 twice a day to 5 mg twice a day. 6. Diabetes. Continue insulin, Levemir, Januvia and insulin coverage and 10 units before meals of Humalog. 7. Coronary artery disease, congestive heart failure. See Dr. Barry. Add Zaroxolyn 2.5 mg p.o. daily. We will continue follow up on that. At this time for her underlying chronic obstructive pulmonary disease, morbid obesity, obstructive sleep apnea, she refused the meds continue support. Follow up clinically. Resume all her meds. Elroy Florian MD [facility] # [phone]
--- NOTE | 2017-09-17 18:55 | PN ---
DATE: 09/17/2017 SUBJECTIVE: The patient is seen lying in bed. She is awake. She is alert. She reports that she did not sleep well last night. She denies any chest pain, shortness of breath at present. PHYSICAL EXAMINATION: GENERAL: Morbidly obese young woman, lying in bed. VITAL SIGNS: Blood pressure 160/90, heart rate 95, respiratory rate 20, temperature 97.4. HEENT: Normocephalic, atraumatic. NECK: Supple, no JVD. LUNGS: Bilateral equal air entry, bilateral equal expansion. CARDIAC: S1 and S2, regular rate and rhythm, no murmur, no rub. ABDOMEN: Obese, distended, soft, positive colostomy, bowel sounds present. EXTREMITIES: No lower extremity edema. INTAKE AND OUTPUT: Not charted. LABORATORY DATA: WBC 7.7, hemoglobin 9.5, hematocrit 30.9, platelets 205. Sodium 142, potassium 4, chloride 106, CO2 30, BUN 27, creatinine 1.2, glucose 92, calcium 9.0. CURRENT MEDICATIONS: Apresoline, Catapres, Dilaudid, DuoNeb, Ecotrin, Eliquis, iron, Flonase, Humalog, Imdur, Januvia 25 mg daily, Levemir, Lipitor, Lyrica, mag oxide, amlodipine 10, Singulair, Toprol-XL 100, Tylenol, Zaroxolyn. ASSESSMENT: 1. Acute kidney injury superimposed on chronic kidney disease stage III, resolved acute kidney injury. 2. Coronary artery disease, history of percutaneous transluminal coronary angioplasty and stents. 3. Hypertension. 4. Sleep apnea. 5. History of rectal cancer. 6. Hyperlipidemia. 7. Anemia of chronic kidney disease. 8. Secondary hyperparathyroidism. 9. Morbid obesity. PLAN: 1. Continue Zaroxolyn per Dr. Barry. 2. Monitor potassium and creatinine closely. 3. Continue to hold ARB. 4. Ideally we would like to restart ARB. 5. Monitor labs closely. Kristine Archibald MD
--- NOTE | 2017-09-18 01:47 | PN ---
DATE: PULMONARY PROGRESS NOTE REFERRING PHYSICIAN: Elroy Florian MD. SUBJECTIVE: She is out of bed to chair, participating in the therapy. Night was unremarkable. Still does not use CPAP. No cough. No sputum production. Short of breath with minimal exertion. Still has a low back discomfort, knee discomfort, not much leg swelling. OBJECTIVE: GENERAL: In no acute distress. VITAL SIGNS: Temperature is 98, heart rate is 95, respiratory rate is 20, blood pressure 160/80, pulse ox 96% on room air. HEENT: Moist mucous membrane. Crowded airway. NECK: Supple. No JVD. LUNGS: Have a fair airflow with rhonchi. HEART: S1 and S2. ABDOMEN: Soft, nontender. No organomegaly. EXTREMITIES: There is no edema. NEUROLOGIC: Awake and alert. Follows simple command. MEDICATIONS: She is on hydralazine 50 mg three times a day, clonidine 0.1 mg every 6 hours p.r.n, Dilaudid 4 mg every 6 hours p.r.n., DuoNeb every 6 hours, Ecotrin 81 mg daily, Eliquis 5 mg twice a day, Ferrex 150 mg daily, Flonase one spray to each nostril daily, insulin coverage, Imdur 60 mg daily, Januvia 25 mg daily, Levemir 40 units subcu twice a day, Lipitor 40 mg daily, Lyrica 50 mg three times a day, Norvasc 10 mg daily, Nuvigil 150 mg daily, Protonix 20 mg twice a day, Singulair 10 mg daily, Toprol-XL 100 mg daily, Tylenol p.r.n., Zaroxolyn 2.5 mg daily. LABORATORY DATA: Shows hemoglobin 9.5, hematocrit 30.9, WBC 7.7, platelet is 205. Sodium 142, potassium 4, chloride 106, bicarbonate is 30, BUN 27, creatinine 1.2, glucose 185. Total bilirubin 0.2, AST 24, ALT 27, albumin is 3.2. IMPRESSION AND PLAN: Renal failure, slowly improved; chronic obstructive lung disease, sleep apnea syndrome, history of deep venous thrombosis, pulmonary embolism, anxiety disorder; colorectal cancer, requiring laparotomy, has a colostomy; diabetes, depression, activities of daily living dysfunction, daytime hypersomnia, noncompliant with continuous positive airway pressure. Pulmonary point of view, doing well. Keep head at 45 degrees. Continue with current continuous positive airway pressure use, daytime stimulant, bronchodilator. Gastric prophylaxis. Fall precaution. Continue therapy. Thank you and we will follow with you. Pamela Ayala MD
[2017-09-18] MEDS: Pantoprazole 20 mg EC Tab PO SCH ×2 (05:31→17:29)
[2017-09-18 06:18] LABS: HEMOGLOBIN 9.1 g/dL (12.0-16.0); MEAN CELL VOLUME 86.1 fl (80.0-105.0); MEAN CORPUSCULAR HEMOGLOBIN 26.3 pg (25.0-35.0); MEAN CORPUSCULAR HGB CONC 30.5 g/dl (31.0-37.0); MEAN PLATELET VOLUME 10.7 fl (7.0-11.0); RBC 3.46 10^6/uL (3.5-6.1); WHITE BLOOD COUNT 7.5 10^3/ul (4.5-11.0)
[2017-09-18] MEDS: Insulin Lispro 1 UNITS/0.01 ML SC SCH ×3 (06:31→17:27)
[2017-09-18] MEDS: Insulin Reg-LOW-Coverage SC SCH ×5 (06:31→21:31)
[2017-09-18 06:50] LABS: ALBUMIN 2.9 g/dL (3.0-4.8); ALT/SGPT 30 U/L (7-56); AST/SGOT 21 U/L (14-36); BLOOD UREA NITROGEN 29 mg/dL (7-21); CALCIUM 8.3 mg/dL (8.4-10.5); GFR AFRICAN-AMERICAN 43; GFR NON-AFRICAN AMERICAN 35
[2017-09-18] MEDS: Albuterol-Ipratrop 3 mg / 0.5 (3 ml) UD IH SCH ×3 (07:20→19:36)
[2017-09-18] MEDS: Metoprolol Succinate 100 mg XL Tab PO SCH (08:05)
--- NOTE | 2017-09-18 09:28 | PN ---
DATE: 09/17/2017 SUBJECTIVE: Patient is a 61-year-old female in TCU. Patient seems doing better. She is getting more out of bed, going to the bathroom, getting physical therapy, less short of breath. She complained of her bilateral feet, on the toes area, some pain and discomfort when she walks, but she seems better regarding her back pain. Patient has no chest pain. No other complaints. PHYSICAL EXAMINATION: VITAL SIGNS: Temperature 97.4, heart rate 95, blood pressure 160/80, repeat blood pressure 144/74, respirations 20, saturation 96%. HEAD AND NECK: Normal. No JVD. No thyromegaly. CHEST: Clear. Good air entry. CARDIAC: First sound and second sound normal. ABDOMEN: Soft, obese, nontender. EXTREMITIES: There is mild edema. NEUROLOGIC: Normal. LABORATORY DATA: Sodium 142, potassium 4, chloride 106, bicarbonate 30, BUN 27, creatinine 1.2, which is normal. Blood sugar 92. Liver function test is normal. Her sugar is 150, it is in the 100 range. IMPRESSION AND PLAN: 1. Acute renal failure, resolved, probably prerenal due to excessive diuretics and lack of p.o. intake. 2. Hypertension, improving. We increased the hydralazine to 50 mg 3 times a day, continue to monitor blood pressure. She is on clonidine 0.6 p.r.n. for any systolic above 170. Also continue metoprolol succinate (Toprol-XL) 100 mg once a day. Continue amlodipine (Norvasc) 10 mg once a day. We will follow up clinically. 3. Leg edema. I see Dr. Barry took off the Lasix and he replaced it with Zaroxolyn, which is more gentle on the kidney. We will continue that 2.5 mg p.o. daily. 4. Morbid obesity, chronic obstructive pulmonary disease, obstructive sleep apnea. Patient refused bilevel positive airway pressure machine. Continue current management, oxygen, bronchodilators. Seems doing well. 5. Insulin-dependent diabetes. Sugar is in the 100 range, 150. Continue current management with Levemir 40 units twice a day plus Humalog 10 units before each meal, and continue insulin coverage low algorithm. 6. Coronary artery disease, chronic heart failure, more right-sided, probably diastolic heart failure. Continue Imdur 60 mg p.o. daily. Continue Toprol-XL and baby aspirin 81 mg p.o. daily. 7. History of deep vein thrombosis and pulmonary embolism. Currently her renal function is normal. We will continue Eliquis 5 mg p.o. b.i.d. Continue current management. Continue physical therapy. Patient seems doing well. We will discuss with the patient about further treatment plan. Elroy Florian MD
[2017-09-18] MEDS: Iron Complex Polysacch 150mg Cap PO SCH (11:15)
[2017-09-18] MEDS: Insulin Detemir 100 units/ml Vial (Levemir) SC SCH ×2 (11:15→18:00)
[2017-09-18] MEDS: Fluticasone Nasal 50 mcg/Spray NS SCH (11:15)
[2017-09-18] MEDS: Magnesium Oxide 400 mg Tab UD PO SCH ×3 (11:19→18:00)
[2017-09-18] MEDS: metOLazone 2.5 MG TAB PO SCH (11:21)
--- NOTE | 2017-09-18 15:34 | CP.PCM.CON ---
<Shanique De Paz - Last Filed: 09/18/17 15:31> History of Present Illness - History of Present Illness History of Present Illness: Podiatry Consult note: Dr. Sanchez/Dr. Mccloud 61 year old female with extensive PMHx was seen and evaluated at bedside with attending Dr. Sanchez for bilateral feet pain. Patient reports that her pain is mainly localized in the forefoot area. Reports that the pain started about 4 months ago. States that the pain is worst when she walks or flexes her toes when sitting down. Denies of any recent trauma or injury to the bilateral feet. Patient denies of seeking any care or has not tried anything to relieve the pain. States that she just sits down to relieve the pain. Patient denies of having any recent F/N/V/C/SOB/CP/headache. Denies of any other pedal complains at this time Review of Systems - Constitutional Constitutional: As Per HPI Past Patient History - Infectious Disease Hx of Infectious Diseases: None - Tetanus Immunizations Tetanus Immunization: Unknown - Past Social History Smoking Status: Never Smoked - CARDIAC Hx Congestive Heart Failure: Yes - PULMONARY Hx Chronic Obstructive Pulmonary Disease (COPD): Yes - NEUROLOGICAL Hx Neurological Disorder: Yes Hx Dizziness: Yes - HEENT Hx Macular Degeneration: No - RENAL Hx Chronic Kidney Disease: Yes Hx Kidney Stones: Yes - ENDOCRINE/METABOLIC Hx Diabetes Mellitus Type 2: Yes - HEMATOLOGICAL/ONCOLOGICAL Hx Blood Disorders: No - INTEGUMENTARY Hx Dermatological Problems: No - MUSCULOSKELETAL/RHEUMATOLOGICAL Hx Falls: Yes - GASTROINTESTINAL Hx Gastrointestinal Disorders: Yes (h/o colorectal CA, Colostomy) - GENITOURINARY/GYNECOLOGICAL Hx Genitourinary Disorders: Yes (urinary retention) Hx Reproductive Disorders: No - PSYCHIATRIC Hx Psychophysiologic Disorder: Yes Hx Anxiety: Yes Hx Substance Use: No - SURGICAL HISTORY Hx Surgeries: Yes Hx Appendectomy: Yes Hx Coronary Stent: Yes Other/Comment: colostomy - ANESTHESIA Hx Anesthesia: Yes Hx Anesthesia Reactions: No Hx Malignant Hyperthermia: No Meds Allergies/Adverse Reactions: Allergies Allergy/AdvReac Type Severity Reaction Status Date / Time No Known Allergies Allergy Verified 09/15/17 22:10 - Medications Medications: Current Medications Acetaminophen (Tylenol 325mg Tab) 650 mg PO Q6H PRN; Protocol PRN Reason: Headache Last Admin: 09/15/17 22:04 Dose: 650 mg Albuterol/Ipratropium (Duoneb 3 Mg/0.5 Mg (3 Ml) Ud) 3 ml IH [id number] PRN Reason: Protocol Last Admin: 09/18/17 13:46 Dose: Not Given Amlodipine Besylate (Norvasc) 10 mg PO DAILY [facility] PRN Reason: Protocol Last Admin: 09/18/17 11:20 Dose: 10 mg Apixaban (Eliquis) 5 mg PO BID [facility] PRN Reason: Protocol Last Admin: 09/18/17 11:14 Dose: 5 mg Armodafinil (Nuvigil 150 Mg Tab) 150 mg PO DAILY [facility] Last Admin: 09/18/17 10:00 Dose: 150 mg Aspirin (Ecotrin) 81 mg PO 0800 [facility] PRN Reason: Protocol Last Admin: 09/18/17 08:04 Dose: 81 mg Atorvastatin Calcium (Lipitor) 40 mg PO DIN [facility] PRN Reason: Protocol Last Admin: 09/17/17 17:47 Dose: 40 mg Clonidine HCl (Catapres) 0.1 mg PO Q6H PRN; Protocol PRN Reason: Systolic Blood Pressure Fluticasone Propionate (Flonase) 0 actuation NS DAILY [facility] PRN Reason: Protocol Last Admin: 09/18/17 11:15 Dose: 1 spr Hydralazine HCl (Apresoline) 50 mg PO TID [facility] Last Admin: 09/18/17 15:04 Dose: 50 mg Hydromorphone HCl (Dilaudid) 4 mg PO Q6H PRN; Protocol PRN Reason: Pain, severe (8-10) Last Admin: 09/17/17 22:20 Dose: 4 mg Insulin Detemir (Levemir) 40 unit SC BID [facility] PRN Reason: Protocol Last Admin: 09/18/17 11:15 Dose: 40 unit Insulin Human Lispro (Humalog) 10 units SC AC [facility] PRN Reason: Protocol Last Admin: 09/18/17 12:33 Dose: 10 units Insulin Human Regular (Humulin R Low) 0 units SC ACHS [facility] PRN Reason: Protocol Last Admin: 09/18/17 12:35 Dose: 2 units Isosorbide Mononitrate (Imdur) 60 mg PO 0600 [facility] PRN Reason: Protocol Last Admin: 09/18/17 05:33 Dose: Not Given Magnesium Oxide (Mag-Ox) 400 mg PO BID [facility] Last Admin: 09/18/17 11:19 Dose: 400 mg Metolazone (Zaroxolyn) 2.5 mg PO DAILY [facility] Last Admin: 09/18/17 11:21 Dose: 2.5 mg Metoprolol Succinate (Toprol Xl) 100 mg PO BRK JR PRN Reason: Protocol Last Admin: 09/18/17 08:05 Dose: Not Given Montelukast Sodium (Singulair) 10 mg PO HS JR PRN Reason: Protocol Last Admin: 09/17/17 22:28 Dose: 10 mg Pantoprazole Sodium (Protonix Ec Tab) 20 mg PO 0600,1600 [facility] PRN Reason: Protocol Last Admin: 09/18/17 05:31 Dose: 20 mg Pneumococcal Polyvalent Vaccine (Pneumovax 23 Vaccine) 0.5 ml IM .ONCE ONE Stop: 09/21/17 10:01 Polysaccharide Iron Complex (Ferrex-150) 150 mg PO DAILY [facility] PRN Reason: Protocol Last Admin: 09/18/17 11:15 Dose: 150 mg Pregabalin (Lyrica) 50 mg PO TID [facility] PRN Reason: Protocol Last Admin: 09/18/17 15:05 Dose: 50 mg Sitagliptin Phosphate (Januvia) 25 mg PO DAILY [facility] PRN Reason: Protocol Last Admin: 09/18/17 11:15 Dose: 25 mg Physical Exam - Constitutional Appears: Well, Non-toxic, No Acute Distress - Extremities Exam Additional comments: Bilateral LE focused exam: VASC: DP/PT pulses are palpable 1/4, Cap refill time: < 3 sec to all digits, Temp gradient: warm to cool from proximal to distal, no pitting or non-pitting edema noted DERM: no interdigital maceration, no open lesions, no erythema, no clinical suspicion of active infection NEURO: Protective sensation intact on bilateral extremity ORTHO: Pain greater on L compared to R, Pain mainly localized sub-metatarsal heads bilaterally with greatest intensity at sub-metatarsal head 1 on the left, mild pain on the plantar forefoot during active and passive DF and PF at the MTPJ on the left; MMT: 5/5 in all 4 directions at the ankle joint - Neurological Exam Neurological exam: Alert, Oriented x3 - Psychiatric Exam Psychiatric exam: Normal Affect, Normal Mood Results - Vital Signs Recent Vital Signs: Last Vital Signs Temp 97.9 F 09/18/17 10:00 Pulse 99 H 09/18/17 11:14 Resp 20 09/18/17 10:00 BP 156/84 H 09/18/17 11:20 Pulse Ox 94 L 09/18/17 10:00 - Labs Result Diagrams: 09/18/17 06:00 09/18/17 06:00 Labs: Laboratory Results - last 24 hr 09/17/17 09/18/17 09/18/17 17:06 05:31 06:00 WBC 7.5 RBC 3.46 L Hgb 9.1 L Hct 29.8 L MCV 86.1 MCH 26.3 MCHC 30.5 L RDW 15.0 H Plt Count 193 MPV 10.7 Sodium Potassium Chloride Carbon Dioxide Anion Gap BUN Creatinine Est GFR ( Amer) Est GFR (Non-Af Amer) POC Glucose (mg/dL) 185 H 166 H Random Glucose Calcium Phosphorus Magnesium Total Bilirubin AST ALT Alkaline Phosphatase Total Protein Albumin Globulin Albumin/Globulin Ratio 09/18/17 09/18/17 06:00 11:27 WBC RBC Hgb Hct MCV MCH MCHC RDW Plt Count MPV Sodium 138 Potassium 4.3 Chloride 105 Carbon Dioxide 30 Anion Gap 8 L BUN 29 H Creatinine 1.5 H Est GFR ( Amer) 43 Est GFR (Non-Af Amer) 35 POC Glucose (mg/dL) 212 H Random Glucose 179 H Calcium 8.3 L Phosphorus 4.3 Magnesium 1.4 L Total Bilirubin < 0.1 L AST 21 ALT 30 Alkaline Phosphatase 101 Total Protein 5.9 Albumin 2.9 L Globulin 3.0 Albumin/Globulin Ratio 1.0 L Assessment & Plan - Assessment and Plan (Free Text) Assessment: 61 year old female with metatarsalgia vs. sesamoiditis of bilateral feet Plan: Patient seen and evaluated with attending Dr. Daniel FRAGOSO X-rays of the bilateral feet ordered Educated patient of the possible etiology of the pain Educated patient of [facility] protocol Podiatry to follow up with the x-rays Thank you for the consult and allowing to take part in patient care <Glenn Sanchez - Last Filed: 09/19/17 08:14> Meds - Medications Medications: Current Medications Acetaminophen (Tylenol 325mg Tab) 650 mg PO Q6H PRN; Protocol PRN Reason: Headache Last Admin: 09/15/17 22:04 Dose: 650 mg Albuterol/Ipratropium (Duoneb 3 Mg/0.5 Mg (3 Ml) Ud) 3 ml IH [id number] PRN Reason: Protocol Last Admin: 09/19/17 07:44 Dose: Not Given Amlodipine Besylate (Norvasc) 10 mg PO DAILY [facility] PRN Reason: Protocol Last Admin: 09/18/17 11:20 Dose: 10 mg Apixaban (Eliquis) 5 mg PO BID JR PRN Reason: Protocol Last Admin: 09/18/17 17:26 Dose: 5 mg Armodafinil (Nuvigil 150 Mg Tab) 150 mg PO DAILY [facility] Last Admin: 09/18/17 10:00 Dose: 150 mg Aspirin (Ecotrin) 81 mg PO 0800 [facility] PRN Reason: Protocol Last Admin: 09/18/17 08:04 Dose: 81 mg Atorvastatin Calcium (Lipitor) 40 mg PO DIN [facility] PRN Reason: Protocol Last Admin: 09/18/17 17:29 Dose: 40 mg Clonidine HCl (Catapres) 0.1 mg PO Q6H PRN; Protocol PRN Reason: Systolic Blood Pressure Fluticasone Propionate (Flonase) 0 actuation NS DAILY [facility] PRN Reason: Protocol Last Admin: 09/18/17 11:15 Dose: 1 spr Hydralazine HCl (Apresoline) 50 mg PO TID [facility] Last Admin: 09/18/17 17:25 Dose: 50 mg Hydromorphone HCl (Dilaudid) 4 mg PO Q6H PRN; Protocol PRN Reason: Pain, severe (8-10) Last Admin: 09/19/17 03:46 Dose: 4 mg Insulin Detemir (Levemir) 40 unit SC BID [facility] PRN Reason: Protocol Last Admin: 09/18/17 18:00 Dose: Not Given Insulin Human Lispro (Humalog) 10 units SC AC JR PRN Reason: Protocol Last Admin: 09/19/17 06:33 Dose: Not Given Insulin Human Regular (Humulin R Low) 0 units SC ACHS [facility] PRN Reason: Protocol Last Admin: 09/19/17 06:33 Dose: Not Given Isosorbide Mononitrate (Imdur) 60 mg PO 0600 [facility] PRN Reason: Protocol Last Admin: 09/19/17 05:23 Dose: 60 mg Magnesium Oxide (Mag-Ox) 400 mg PO TID [facility] Last Admin: 09/18/17 18:00 Dose: 400 mg Metolazone (Zaroxolyn) 2.5 mg PO DAILY [facility] Last Admin: 09/18/17 11:21 Dose: 2.5 mg Metoprolol Succinate (Toprol Xl) 100 mg PO BRK [facility] PRN Reason: Protocol Last Admin: 09/18/17 08:05 Dose: Not Given Metoprolol Succinate (Toprol Xl) 50 mg PO BRK [facility] Montelukast Sodium (Singulair) 10 mg PO HS JR PRN Reason: Protocol Last Admin: 09/18/17 21:32 Dose: 10 mg Pantoprazole Sodium (Protonix Ec Tab) 40 mg PO 0600,1600 [facility] PRN Reason: Protocol Last Admin: 09/19/17 05:24 Dose: 40 mg Pneumococcal Polyvalent Vaccine (Pneumovax 23 Vaccine) 0.5 ml IM .ONCE ONE Stop: 09/21/17 10:01 Polysaccharide Iron Complex (Ferrex-150) 150 mg PO DAILY [facility] PRN Reason: Protocol Last Admin: 09/18/17 11:15 Dose: 150 mg Pregabalin (Lyrica) 50 mg PO TID [facility] PRN Reason: Protocol Last Admin: 09/18/17 19:39 Dose: Not Given Sitagliptin Phosphate (Januvia) 25 mg PO DAILY [facility] PRN Reason: Protocol Last Admin: 09/18/17 11:15 Dose: 25 mg Results - Vital Signs Recent Vital Signs: Last Vital Signs Temp 97.5 F L 09/18/17 17:05 Pulse 113 H 09/18/17 17:25 Resp 18 09/18/17 17:05 BP 163/83 H 09/18/17 17:25 Pulse Ox 95 09/18/17 17:05 - Labs Result Diagrams: 09/18/17 06:00 09/18/17 06:00 Labs: Laboratory Results - last 24 hr 09/18/17 09/18/17 09/19/17 11:27 21:21 05:26 POC Glucose (mg/dL) 212 H 198 H 201 H Attending/Attestation - Attestation I have personally seen and examined this patient.: Yes I have fully participated in the care of the patient.: Yes I have reviewed all pertinent clinical information: Yes
--- NOTE | 2017-09-18 18:09 | RAD ---
PROCEDURE: Bilateral Feet Radiographs. HISTORY: Submetatarsal head pain COMPARISON: None. FINDINGS: BONES: Right Foot: Normal. No fracture. Left Foot: Normal. No fracture. JOINTS: Right Foot: Minor hallux valgus deformity. No osteoarthritis. Left Foot: Symmetrical hallux valgus deformity. No osteoarthritis. SOFT TISSUES: Right Foot: Diffusely edematous lower extremities. Left Foot: Symmetric edema primarily affecting calf ankle and to lesser extent foot OTHER FINDINGS: None. IMPRESSION: Diffuse edema. No acute or significant osseous or articular abnormalities.
--- NOTE | 2017-09-18 18:42 | PN ---
DATE: SUBJECTIVE: The patient is currently seen lying comfortable in bed. She appears to be in no acute distress. Zaroxolyn had been restarted by Cardiology. Her BUN and creatinine are slightly higher. MEDICATIONS: Medication list reviewed. The patient is currently on hydralazine, clonidine p.r.n., Dilaudid, DuoNeb, Ecotrin, Eliquis, polysaccharide iron complex, Flonase, insulin, Imdur, Januvia low dose, Levemir, Lipitor, Lyrica, mag oxide, Norvasc, Nuvigil, Protonix, Singulair, Toprol, Tylenol p.r.n., and Zaroxolyn. OBJECTIVE: VITAL SIGNS: Blood pressure 163/83, temperature 97.5, pulse ranging from 86 to 113, respiratory rate is 18, pulse ox is 95%. HEENT: Show her be normocephalic, atraumatic. Conjunctivae are pale. Sclerae nonicteric. NECK: Supple. No neck vein distention. CHEST: Clear to auscultation and percussion with no rales, rhonchi, or wheezing. CARDIOVASCULAR: Shows a regular rate and rhythm without audible murmurs, rubs, or gallops. ABDOMEN: Soft. Positive colostomy, moderate obesity. Bowel sounds normal. EXTREMITIES: Show no lower extremity cyanosis, clubbing, or edema. LABORATORY DATA AND IMAGING: CBC: White blood cell count from today 7.5, hemoglobin 9.1 with a platelet count of 193,000. Chemistry showed normal electrolytes. BUN slightly higher at 29, creatinine 1.5 and slightly higher. Baseline creatinine had been running in the 1.2 to 1.3 range. Glucose is 179. Calcium 8.3, phosphorus 4.3. Magnesium level remains low at 1.4, up from 1.3. The patient continues on magnesium oxide supplements. Albumin is low at 2.9. ASSESSMENT: 1. Acute renal failure superimposed on chronic kidney disease stage 3. For the most part, her BUN and creatinine are back to baseline levels. With the start of diuretic therapy, the patient will likely maintain BUN and creatinine level slightly higher than her lowest baseline range. This should be acceptable given her history of CHF and cardiac disease. 2. History of chronic kidney disease stage 3, currently stable. This is likely secondary to diabetes. 3. History of atherosclerotic heart disease, status post percutaneous transluminal coronary angioplasty and stent, all stable. 4. History of hypertension. For right now, the patient will remain off ESTEVAN inhibitors and angiotensin receptor blockers. Blood pressure remains controlled on calcium channel blockers. Hydralazine, nitrates, and beta-joseph therapy. 5. History of obstructive sleep apnea, on CPAP therapy. 6. History of rectal cancer, status post colectomy with colostomy. 7. History of hyperlipidemia, on diet and statin therapy. 8. History of anemia in part secondary to chronic kidney disease. The patient is status post one dose of Aranesp 60 mcg. She does remain on oral iron therapy. Under the guidance of her event sales representative, the patient was restarted back on low-dose diuretic therapy. Continue magnesium supplements. Continue rehabilitation in the TCU. The patient is essentially stable from a renal standpoint. With close outpatient management, the patient may be discharged from the TCU soon. Osman Perea MD
[2017-09-19] MEDS: Albuterol-Ipratrop 3 mg / 0.5 (3 ml) UD IH SCH ×4 (03:36→19:52)
[2017-09-19] MEDS: Pantoprazole 40 mg EC Tab PO SCH ×2 (05:24→16:41)
--- NOTE | 2017-09-19 05:27 | PN ---
DATE: 09/18/2017 PULMONARY PROGRESS NOTE REFERRING PHYSICIAN: Elroy Florian MD SUBJECTIVE: She is lying in the bed at 45 degrees. Has some dry cough, acid reflux. No nausea. No abdominal pain. No dysuria. No leg pain or leg swelling. OBJECTIVE: GENERAL: In no acute distress. VITAL SIGNS: Temperature is 98, heart rate 99, respiratory rate is 14, blood pressure 156/84, pulse ox 94% on nasal cannula. HEENT: Moist mucous membrane. Crowded airway. Mallampati score is 4. NECK: Supple. No JVD. LUNGS: Have a fair airflow with rhonchi. HEART: S1 and S2. ABDOMEN: Positive bowel sounds. Epigastric area tenderness. NEUROLOGIC: Awake, alert. Follows simple command. MEDICATIONS: She is on hydralazine 50 mg three times a day, clonidine 0.1 mg every 6 hours p.r.n., Dilaudid 4 mg every 6 hours p.r.n., DuoNeb every 6 hours [id number], Ecotrin 81 mg daily, Eliquis 5 mg twice a day, Ferrex 150 mg daily, Flonase one spray to each nostril daily, insulin coverage, Januvia 25 mg daily, Levemir 40 units subcu twice a day, Lipitor 40 mg daily, Lyrica 50 mg three times a day, mag oxide 400 mg three times a day, Norvasc 10 mg daily, Nuvigil 150 mg daily, Protonix 20 mg twice a day, Singulair 10 mg h.s., Toprol-XL 100 mg daily, Tylenol p.r.n. basis, and Zaroxolyn 2.5 mg daily. LABORATORY DATA: Shows hemoglobin 9.1, hematocrit 29.8, WBC 7.5, platelet is 193. Sodium 138, potassium 4.3, chloride 105, bicarbonate 30, BUN 29, creatinine 1.5, glucose 179, calcium is 8.3, phosphorus 4.3, magnesium 1.4, AST 21, ALT 30, alk phos is 101, and albumin is 2.9. IMPRESSION AND PLAN: Chronic obstructive lung disease, obstructive sleep apnea syndrome, history of deep venous thrombosis, history of pulmonary embolism, anxiety disorder, colorectal cancer requiring laparotomy and colostomy, diabetes, depression, activities of daily living dysfunction, renal insufficiency, daytime hypersomnia, nocturnal insomnia. Continue bronchodilator. Keep head at 45 degrees. Continue proton inhibitor, gastroesophageal reflux disease precaution, daytime stimulant, continue therapy. Thank you and we will follow with you. Pamela Ayala MD
[2017-09-19] MEDS: Insulin Lispro 1 UNITS/0.01 ML SC SCH ×3 (06:33→17:49)
[2017-09-19] MEDS: Insulin Reg-LOW-Coverage SC SCH ×4 (06:33→22:03)
[2017-09-19] MEDS ORDERED: Metoprolol Succinate 50 mg XL Tab PO SCH (08:00)
[2017-09-19] MEDS: Metoprolol Succinate 100 mg XL Tab PO SCH (08:20)
[2017-09-19] MEDS: Iron Complex Polysacch 150mg Cap PO SCH (09:53)
[2017-09-19] MEDS: Fluticasone Nasal 50 mcg/Spray NS SCH (09:53)
[2017-09-19] MEDS: Insulin Detemir 100 units/ml Vial (Levemir) SC SCH ×2 (09:54→17:48)
[2017-09-19] MEDS: Magnesium Oxide 400 mg Tab UD PO SCH ×3 (09:55→17:40)
[2017-09-19] MEDS: metOLazone 2.5 MG TAB PO SCH (10:42)
--- NOTE | 2017-09-19 13:39 | PN ---
DATE: 09/18/2017 SUBJECTIVE: The patient seems comfortable, better appetite, walking better. No chest pain. No shortness of breath. PHYSICAL EXAMINATION VITAL SIGNS: Temperature 97, heart rate 113, blood pressure 163/83, respiratory rate 18, and saturation 94% on 3 liters. HEAD AND NECK: Normal. No JVD. No thyromegaly. CHEST: Clear. Good air entry. CARDIAC: First sound and second sound is normal. ABDOMEN: Soft, obese with two colostomy bags. Nontender. EXTREMITIES: Mild edema, both legs. NEUROLOGIC: The patient is alert, awake, and oriented x3. Moves all extremities. There are no sensory deficits. LABORATORY DATA: Sodium 138, potassium 4.3, chloride 105, bicarbonate 30, BUN 29, creatinine 1.5, glucose 179. Calcium 8.3. Total bilirubin is 0.1. CBC: White count 7.5, hemoglobin 9.1, hematocrit 29.8, and platelets 193. Laboratory studies on 09/17/2017 shows BUN 27 and creatinine 1.2. IMPRESSION AND PLAN 1. Acute renal failure, probably diuretic related. The patient is currently on Zaroxolyn 2.5 mg daily. Seems stable. We will discuss with Renal consult. 2. Insulin-dependent diabetes. Sugar is improving. Continue Levemir 40 units b.i.d. and continue Humalog 10 units before each meal. Also, the patient getting Januvia 25 mg, will increase that to 50 mg once a day. 3. Hypertension, uncontrolled. Continue current blood pressure medicine. We will monitor her blood pressure. Currently, she is on hydralazine 50 t.i.d. and Catapres 0.1 mg every 6 hours p.r.n. She is getting Norvasc 10 mg once a day and Toprol 100 mg once a day, which we may increase to 150 because she is always tachycardiac and I will continue to monitor the blood pressure. 4. Morbid obesity, possible obstructive sleep apnea and chronic obstructive pulmonary disease. Continue nebulizer treatment. Continue Nuvigil. 5. The patient does have rectal cancer with colostomy. We will follow up as outpatient. Dr. Benitez has seen the patient. She should have a colonoscopy, will be done as outpatient. 6. History of deep venous thrombosis and pulmonary embolism. Continue Eliquis 5 mg b.i.d. Continue current therapy. Follow up with other solar sales consultant. Elroy Florian MD
--- NOTE | 2017-09-19 16:08 | CP.PCM.PN ---
Subjective - Date & Time of Evaluation Date of Evaluation: 09/19/17 Time of Evaluation: 16:03 - Subjective Subjective: Podiatry progress note: Dr. Sanchez/Dr. Mccloud 61 year old female was seen and evaluated at bedside with attending Dr. Mccloud for bilateral feet pain. Patient is AAOx3 and is in NAD. Reports that her pain has reduced a little since the ice application. Denies of any other acute events overnight. Denies of having F/N/V/C/CP. Denies of any other pedal complains now. Objective - Vital Signs/Intake and Output Vital Signs (last 24 hours): Temp Pulse Resp BP Pulse Ox 97.5 F L 113 H 18 184/81 H 95 09/18/17 17:05 09/18/17 17:25 09/18/17 17:05 09/19/17 09:55 09/18/17 17:05 Intake and Output: 09/19/17 09/19/17 06:59 18:59 Intake Total 420 Balance 420 - Medications Medications: Current Medications Acetaminophen (Tylenol 325mg Tab) 650 mg PO Q6H PRN; Protocol PRN Reason: Headache Last Admin: 09/15/17 22:04 Dose: 650 mg Albuterol/Ipratropium (Duoneb 3 Mg/0.5 Mg (3 Ml) Ud) 3 ml IH [id number] JR PRN Reason: Protocol Last Admin: 09/19/17 13:03 Dose: Not Given Amlodipine Besylate (Norvasc) 10 mg PO DAILY JR PRN Reason: Protocol Last Admin: 09/19/17 09:55 Dose: 10 mg Apixaban (Eliquis) 5 mg PO BID JR PRN Reason: Protocol Last Admin: 09/19/17 09:53 Dose: 5 mg Armodafinil (Nuvigil 150 Mg Tab) 150 mg PO DAILY JR Last Admin: 09/19/17 09:58 Dose: 150 mg Aspirin (Ecotrin) 81 mg PO 0800 JR PRN Reason: Protocol Last Admin: 09/19/17 08:20 Dose: 81 mg Atorvastatin Calcium (Lipitor) 40 mg PO DIN JR PRN Reason: Protocol Last Admin: 09/18/17 17:29 Dose: 40 mg Clonidine HCl (Catapres) 0.1 mg PO Q6H PRN; Protocol PRN Reason: Systolic Blood Pressure Fluticasone Propionate (Flonase) 0 actuation NS DAILY [facility] PRN Reason: Protocol Last Admin: 09/19/17 09:53 Dose: 2 spr Hydralazine HCl (Apresoline) 50 mg PO TID [facility] Last Admin: 09/19/17 09:53 Dose: 50 mg Hydromorphone HCl (Dilaudid) 4 mg PO Q6H PRN; Protocol PRN Reason: Pain, severe (8-10) Last Admin: 09/19/17 03:46 Dose: 4 mg Insulin Detemir (Levemir) 40 unit SC BID [facility] PRN Reason: Protocol Last Admin: 09/19/17 09:54 Dose: 40 unit Insulin Human Lispro (Humalog) 10 units SC AC [facility] PRN Reason: Protocol Last Admin: 09/19/17 12:27 Dose: 10 units Insulin Human Regular (Humulin R Low) 0 units SC ACHS [facility] PRN Reason: Protocol Last Admin: 09/19/17 12:27 Dose: 10 units Isosorbide Mononitrate (Imdur) 60 mg PO 0600 [facility] PRN Reason: Protocol Last Admin: 09/19/17 05:23 Dose: 60 mg Magnesium Oxide (Mag-Ox) 400 mg PO TID [facility] Last Admin: 09/19/17 09:55 Dose: 400 mg Metolazone (Zaroxolyn) 2.5 mg PO DAILY [facility] Last Admin: 09/18/17 11:21 Dose: 2.5 mg Metoprolol Succinate (Toprol Xl) 50 mg PO BRK JR Montelukast Sodium (Singulair) 10 mg PO HS [facility] PRN Reason: Protocol Last Admin: 09/18/17 21:32 Dose: 10 mg Pantoprazole Sodium (Protonix Ec Tab) 40 mg PO 0600,1600 [facility] PRN Reason: Protocol Last Admin: 09/19/17 05:24 Dose: 40 mg Pneumococcal Polyvalent Vaccine (Pneumovax 23 Vaccine) 0.5 ml IM .ONCE ONE Stop: 09/21/17 10:01 Polysaccharide Iron Complex (Ferrex-150) 150 mg PO DAILY [facility] PRN Reason: Protocol Last Admin: 09/19/17 09:53 Dose: 150 mg Pregabalin (Lyrica) 50 mg PO TID [facility] PRN Reason: Protocol Last Admin: 09/19/17 09:58 Dose: 50 mg Sitagliptin Phosphate (Januvia) 25 mg PO DAILY JR PRN Reason: Protocol Last Admin: 09/19/17 09:54 Dose: 25 mg - Labs Labs: 09/18/17 06:00 09/18/17 06:00 - Constitutional Appears: Well, Non-toxic, No Acute Distress - Extremities Exam Additional comments: Bilateral LE focused exam: VASC: DP/PT pulses are palpable 1/4, Cap refill time: < 3 sec to all digits, Temp gradient: warm to cool from proximal to distal, no pitting or non-pitting edema noted DERM: no interdigital maceration, no open lesions, no erythema, no clinical suspicion of active infection NEURO: Protective sensation intact on bilateral extremity ORTHO: Pain greater on L compared to R, Pain mainly localized sub-metatarsal heads bilaterally with greatest intensity at sub-metatarsal head 1 on the left, mild pain on the plantar forefoot during active and passive DF and PF at the MTPJ on the left; MMT: 5/5 in all 4 directions at the ankle joint - Neurological Exam Neurological Exam: Alert, Awake, Oriented x3 - Psychiatric Exam Psychiatric exam: Normal Affect, Normal Mood Assessment and Plan - Assessment and Plan (Free Text) Assessment: 61 year old female with metatarsalgia of bilateral feet Plan: Patient seen and evaluated with attending Dr. Daniel FRAGOSO X-rays of the bilateral feet reviewed - no acute fractures or dislocations noted Educated patient of the possible etiology of the pain Educated patient of RICE protocol Thank you for the consult and allowing to take part in patient care
[2017-09-19 17:18] LABS: TROPONIN I 0.03 ng/mL
--- NOTE | 2017-09-19 17:43 | PN ---
DATE: 09/19/2017 PULMONARY PROGRESS NOTE REFERRING PHYSICIAN: Elroy Florian MD. SUBJECTIVE: The patient is lying in the bed, sleepy, arousable. Night was unremarkable. Refused to use CPAP. No headache, no rhinitis. Cough is better today. No vomiting. No hematuria. No diarrhea. No leg pain or leg swelling. PHYSICAL EXAMINATION: GENERAL: In no acute distress. VITAL SIGNS: Temperature is 98, heart rate is 113, respiratory rate is 20, blood pressure 184/81, pulse ox is 94% on nasal cannula. HEENT: Moist mucous membrane. Small oral cavity. Crowded airway. NECK: Supple. No JVD. LUNGS: Have a fair airflow with few rhonchi. HEART: S1 and S2. Tachycardic. ABDOMEN: Soft, nontender. No organomegaly. EXTREMITIES: No edema. NEUROLOGIC: Sleepy, arousable, follows simple command. MEDICATIONS: She is on hydralazine 50 mg three times a day, Catapres 0.1 mg every 6 hours p.r.n., Dilaudid 4 mg every 6 hours p.r.n., aspirin 81 mg daily, DuoNeb every 6 hours, Eliquis 5 mg twice a day, Ferrex 150 mg daily, Flonase one spray to each nostril daily, insulin coverage, Imdur 60 mg daily, Januvia 25 mg daily, Levemir 40 units subcutaneously twice a day, Lipitor 40 mg daily, Lyrica 50 mg three times a day, magnesium oxide 400 mg three times a day, Norvasc 10 mg daily, Nuvigil 150 mg daily, Protonix 40 mg daily, Singulair 10 mg daily, Toprol-XL 150 mg daily, Tylenol p.r.n. basis, and Zaroxolyn 2.5 mg daily. LABORATORY DATA: Reviewed and noted. Blood sugar this morning is 279. IMPRESSION AND PLAN: Chronic obstructive lung disease, obstructive sleep apnea syndrome, history of deep venous thrombosis, history of pulmonary embolism, anxiety disorder, colorectal cancer requiring laparotomy and colostomy, diabetes, depression, activities of daily living dysfunction, gastroesophageal reflux disease, daytime hypersomnia, nocturnal insomnia, tachycardia. Pulmonary point of view, she is doing okay. Continue to encourage BiPAP, she is refusing to use it. Understands risk-benefit ratio. Continue inhaled bronchodilator. Keep head at 45 degrees. Continue proton inhibitor, antihypertensive medication, on beta-joseph. Fall precaution. Continue therapy. Thank you and we will follow with you. Pamela Ayala MD
--- NOTE | 2017-09-19 22:05 | CARD ---
APPROVED REPORT EKG Measurement Heart [id number] <Conclusion> Normal sinus rhythm Normal ECG
--- NOTE | 2017-09-19 22:39 | PN ---
DATE: 09/19/2017 SUBJECTIVE: Patient is seen lying in bed. She is awake, she is alert. She reports she got out into the chair earlier. She washed . She wants to go home. PHYSICAL EXAMINATION: GENERAL: Morbidly obese, middle-aged lady, lying in bed. VITAL SIGNS: Blood pressure 184/81, heart rate 113, respiratory rate 20, temperature 98. HEENT: Normocephalic, atraumatic. NECK: Supple, no JVD. LUNGS: Bilateral equal air entry, bilateral rhonchi. No rales. CARDIAC: S1, S2, regular rate and rhythm. No murmur, no rub. ABDOMEN: Obese, distended, soft, positive colostomy, bowel sounds present. EXTREMITIES: Trace lower extremity edema. INTAKE AND OUTPUT: Not charted. LABORATORY DATA: Hemoglobin 9.1, potassium 4.3, BUN 29, creatinine 1.5. CURRENT MEDICATIONS: Apresoline 50 t.i.d., Catapres 0.1 p.r.n., Dilaudid, DuoNeb, Ecotrin, Eliquis, Flonase, insulin, Imdur, Januvia, Levemir, Lipitor, pregabalin, mag oxide, amlodipine, Protonix, Singulair, Toprol-XL 50, Tylenol, Zaroxolyn. ASSESSMENT: 1. Resolved acute kidney injury, underlying chronic kidney disease, stage III. 2. Severe uncontrolled hypertension. 3. Coronary artery disease, history of percutaneous transluminal coronary angioplasty and stent. 4. Chronic obstructive pulmonary disease/sleep apnea. 5. History of rectal cancer, history of colostomy and colectomy. 6. Hyperlipidemia. 7. Anemia. PLAN: 1. Continue Zaroxolyn 2.5? 2. Restart losartan 25 mg daily. 3. P.r.n. increase hydralazine to 100 mg three times a day. 4. Check labs in a.m. 5. Physical therapy. Kristine Archibald MD
[2017-09-20] MEDS: Albuterol-Ipratrop 3 mg / 0.5 (3 ml) UD IH SCH ×3 (02:13→13:46)
--- NOTE | 2017-09-20 05:24 | CON ---
DATE: 09/19/2017 TYPE OF DICTATION: . REASON FOR CONSULTATION: Left arm pain, history of coronary artery disease, history of colorectal cancer status post resection with permanent colostomy, impaired acute renal failure. BRIEF CLINICAL HISTORY: This is a 61-year-old [place] female with past medical history of significant hypertension, diabetes, morbid obesity, history of colorectal cancer status post resection with permanent colostomy, history of coronary artery disease, status post a bare-metal stent to the circumflex prior to pelvic surgery, history of DVT, PE at that time, recently admitted with acute kidney injury on 09/10/2017 with a BUN 106 and creatinine 4.5, was treated with IV fluids. Patient stabilized and was transferred to Transitional Care Unit with a BUN 40 and creatinine of 1.3, was complaining of left arm pain. Cardiology consult was called. Patient denies any chest pain, denies any shortness of breath, denies any palpitation. PAST MEDICAL HISTORY: Past history significant for morbid obesity, diabetes, hypertension, hyperlipidemia, colorectal cancer with colostomy bag who was at that time in Transitional Care Unit, found to be in acute renal failure and transferred to med/surg floor and now the patient is back to the TCU. ALLERGIES: NO KNOWN DRUG ALLERGIES. SOCIAL HISTORY: Denies smoking. Denies any history of alcohol abuse. CURRENT MEDICATIONS: Patient at home was taking hydralazine, clonidine, amlodipine, Januvia, Lyrica, Singulair, metoprolol succinate 100 mg daily, isosorbide nitrate Eliquis, aspirin and albuterol. RECENT CARDIAC WORKUP: As follows. The patient had a cardiac catheterization on 03/17/2014 and a PTCA of obtuse marginal 1 with a bare-metal stent, history of DVT, history PE status post TPA, history of Xarelto for DVT and PE. Patient's last echocardiography done on 09/01/2017 that revealed normal LV function, normal LV segmental wall motion abnormality, transmitral flow consistent with grade 2 diastolic dysfunction. No mitral stenosis, no mitral regurgitation, no tricuspid valve regurgitation noted. REVIEW OF SYSTEMS: As per HPI. PHYSICAL EXAMINATION: As follows: VITAL SIGNS: Height of the patient, 5 feet 5 inches; weight of the patient, 303 pounds, body mass index 50 kg/m2. Rest of the examination, heart rate 113, blood pressure 184/81. HEENT: PERRLA. Extraocular muscles intact. NECK: Supple. No carotid bruit or thyromegaly. CHEST: Clear to auscultation. HEART: S1 and S2 regular. ABDOMEN: Soft. EXTREMITIES: Clubbing and cyanosis, negative. LABORATORY DATA: WBC 7.5, hemoglobin 9.1, hematocrit 29.8, platelet 193. Chemistry shows sodium 130, potassium 4.0, chloride 105, , anion gap of 8, BUN 29, creatinine 1.5. IMPRESSION: Chronic renal insufficiency, II to III stage chronic kidney disease, recently status post acute kidney injury improved, preserved left ventricular function, no significant valvular heart disease, morbid obesity, diabetes, hypertension, hyperlipidemia, history of deep venous thrombosis, pulmonary embolism in the past, on Xarelto. Now patient is on Eliquis b.i.d. RECOMMENDATION: Continue hydralazine, avoid nephrotoxic medication. Patient is tachycardiac and blood pressure is poorly controlled. Now, patient is on metoprolol 50 and he is tachycardiac. If need, we can go up to 100 mg daily and continue p.r.n. We will follow with you. We will get lipid profile, TSH, hemoglobin A1c. Because of the chest pain, ordered by Dr. Florian. We will follow the blood workup. Though patient has renal insufficiency, may channel turner to be borderline positive because of the renal insufficiency, we will monitor closely. Thank you, Dr. Florian, for providing us the opportunity in taking care of Pedro Guevara. Pamela Guerrero MD
[2017-09-20] MEDS: Pantoprazole 40 mg EC Tab PO SCH (05:50)
[2017-09-20 06:26] LABS: MEAN CELL VOLUME 86.7 fl (80.0-105.0); MEAN CORPUSCULAR HEMOGLOBIN 26.5 pg (25.0-35.0); MEAN CORPUSCULAR HGB CONC 30.6 g/dl (31.0-37.0); MEAN PLATELET VOLUME 10.3 fl (7.0-11.0); RBC 3.39 10^6/uL (3.5-6.1); RED CELL DISTRIBUTION WIDTH 15.4 % (11.5-14.5); WHITE BLOOD COUNT 5.6 10^3/ul (4.5-11.0)
[2017-09-20] MEDS: Insulin Reg-LOW-Coverage SC SCH ×2 (06:31→11:17)
[2017-09-20] MEDS: Insulin Lispro 1 UNITS/0.01 ML SC SCH ×2 (06:32→11:17)
[2017-09-20 06:54] VITALS: RESP 20; TEMP 97.9; O2SAT 98
[2017-09-20 07:00] LABS: TROPONIN I 0.03 ng/mL
[2017-09-20 07:32] LABS: ALB/GLOB RATIO 0.9 (1.1-1.8); ALBUMIN 2.8 g/dL (3.0-4.8); CALCIUM 8.4 mg/dL (8.4-10.5)
[2017-09-20] MEDS ORDERED: Metoprolol Succinate 100 mg XL Tab PO SCH (08:00)
--- NOTE | 2017-09-20 09:30 | CP.PCM.PN ---
Subjective - Date & Time of Evaluation Date of Evaluation: 09/20/17 Time of Evaluation: 06:20 - Subjective Subjective: Seen and examined by me and Dr. Guerrero Reason for consultation and follow up:Continuity of care in TCU, left arm pain, history of coronary artery disease with stent, hypertension, diabetes mellitus, DVT, PE, COPD with sleep apnea, history of colorectal cancer post resection with permanent colostomy, renal failure,, Subjective: feels okay, denies shortness of breath, denies chest pain, feels weak but okay Objective - Vital Signs/Intake and Output Vital Signs (last 24 hours): Temp Pulse Resp BP Pulse Ox 97.9 F 82 20 126/57 L 98 09/20/17 06:00 09/20/17 08:17 09/20/17 06:00 09/20/17 08:17 09/20/17 06:00 Intake and Output: 09/20/17 09/20/17 06:59 18:59 Intake Total 420 Balance 420 - Medications Medications: Current Medications Acetaminophen (Tylenol 325mg Tab) 650 mg PO Q6H PRN; Protocol PRN Reason: Headache Last Admin: 09/15/17 22:04 Dose: 650 mg Albuterol/Ipratropium (Duoneb 3 Mg/0.5 Mg (3 Ml) Ud) 3 ml IH [id number] PRN Reason: Protocol Last Admin: 09/20/17 07:24 Dose: Not Given Amlodipine Besylate (Norvasc) 10 mg PO DAILY [facility] PRN Reason: Protocol Last Admin: 09/19/17 09:55 Dose: 10 mg Apixaban (Eliquis) 5 mg PO BID JR PRN Reason: Protocol Last Admin: 09/19/17 17:40 Dose: 5 mg Armodafinil (Nuvigil 150 Mg Tab) 150 mg PO DAILY [facility] Last Admin: 09/19/17 09:58 Dose: 150 mg Aspirin (Ecotrin) 81 mg PO 0800 [facility] PRN Reason: Protocol Last Admin: 09/20/17 08:41 Dose: 81 mg Atorvastatin Calcium (Lipitor) 40 mg PO DIN [facility] PRN Reason: Protocol Last Admin: 09/19/17 17:40 Dose: 40 mg Clonidine HCl (Catapres) 0.1 mg PO Q6H PRN; Protocol PRN Reason: Systolic Blood Pressure Fluticasone Propionate (Flonase) 0 actuation NS DAILY [facility] PRN Reason: Protocol Last Admin: 09/19/17 09:53 Dose: 2 spr Hydralazine HCl (Apresoline) 50 mg PO TID [facility] Last Admin: 09/19/17 17:37 Dose: 50 mg Hydromorphone HCl (Dilaudid) 4 mg PO Q6H PRN; Protocol PRN Reason: Pain, severe (8-10) Last Admin: 09/20/17 08:40 Dose: 4 mg Insulin Detemir (Levemir) 40 unit SC BID JR PRN Reason: Protocol Last Admin: 09/19/17 17:48 Dose: 40 unit Insulin Human Lispro (Humalog) 10 units SC AC [facility] PRN Reason: Protocol Last Admin: 09/20/17 06:32 Dose: 10 units Insulin Human Regular (Humulin R Low) 0 units SC ACHS [facility] PRN Reason: Protocol Last Admin: 09/20/17 06:31 Dose: Not Given Isosorbide Mononitrate (Imdur) 60 mg PO 0600 [facility] PRN Reason: Protocol Last Admin: 09/20/17 05:50 Dose: 60 mg Losartan Potassium (Cozaar) 25 mg PO DAILY [facility] Last Admin: 09/19/17 17:46 Dose: 25 mg Magnesium Oxide (Mag-Ox) 400 mg PO TID [facility] Last Admin: 09/19/17 17:40 Dose: 400 mg Metolazone (Zaroxolyn) 2.5 mg PO DAILY [facility] Last Admin: 09/19/17 10:42 Dose: 2.5 mg Metoprolol Succinate (Toprol Xl) 100 mg PO BRK [facility] Last Admin: 09/20/17 08:17 Dose: Not Given Montelukast Sodium (Singulair) 10 mg PO HS [facility] PRN Reason: Protocol Last Admin: 09/19/17 22:04 Dose: 10 mg Pantoprazole Sodium (Protonix Ec Tab) 40 mg PO 0600,1600 [facility] PRN Reason: Protocol Last Admin: 09/20/17 05:50 Dose: 40 mg Pneumococcal Polyvalent Vaccine (Pneumovax 23 Vaccine) 0.5 ml IM .ONCE ONE Stop: 09/21/17 10:01 Polysaccharide Iron Complex (Ferrex-150) 150 mg PO DAILY [facility] PRN Reason: Protocol Last Admin: 09/19/17 09:53 Dose: 150 mg Pregabalin (Lyrica) 50 mg PO TID JR PRN Reason: Protocol Last Admin: 09/19/17 17:47 Dose: 50 mg - Labs Labs: 09/20/17 06:13 09/20/17 06:13 - Constitutional Appears: No Acute Distress - Eye Exam Eye Exam: Normal appearance Pupil Exam: NORMAL ACCOMODATION - ENT Exam ENT Exam: Mucous Membranes Moist, Normal Exam - Respiratory Exam Respiratory Exam: Decreased Breath Sounds, Clear to Ausculation Bilateral, NORMAL BREATHING PATTERN - Cardiovascular Exam Cardiovascular Exam: REGULAR RHYTHM, +S1, +S2 Additional comments: normal sinus rythm - GI/Abdominal Exam GI & Abdominal Exam: Soft, Normal Bowel Sounds Additional comments: colostomy brown stools - Extremities Exam Extremities Exam: Normal Capillary Refill - Neurological Exam Neurological Exam: Alert, Awake, Oriented x3 - Skin Skin Exam: Dry, Intact, Normal Color, Warm - Additional Findings Additional findings: Obese Assessment and Plan - Assessment and Plan (Free Text) Assessment: IMPRESSION: Continuity of care in TCU for strenghtening and rehab, history of coronary artery disease with stent, hypertension, diabetes mellitus, DVT, PE, COPD with sleep apnea, history of colorectal cancer post resection with permanent colostomy, renal failure,, Plan: Cardiac status stable Heart rate NSR 80's, blood pressure stable Continue Norvasc 10 mg daily, Eliquis 5 mg BID, ASA 81 mg daily,Lipitor 40 mg daily, PRN Clonidine 0.1 mg every 6 hours, Hydralazine 50 mg TID, Cozaar 25 mg daily, Toprol XL 100 mg daily, Imdur 60 mg daily. Tolerating physical therapy Continue current treatment Continue current medications Will follow up Plan and treatment discussed with Dr. Guerrero
[2017-09-20] MEDS: Iron Complex Polysacch 150mg Cap PO SCH (11:05)
[2017-09-20] MEDS: Magnesium Oxide 400 mg Tab UD PO SCH ×2 (11:06→14:56)
[2017-09-20] MEDS: Fluticasone Nasal 50 mcg/Spray NS SCH (11:07)
[2017-09-20] MEDS: Insulin Detemir 100 units/ml Vial (Levemir) SC SCH (11:10)
[2017-09-20] MEDS: metOLazone 2.5 MG TAB PO SCH (11:18)
[2017-09-20 11:20] VITALS: PULSE 80
--- NOTE | 2017-09-20 14:23 | CARD ---
APPROVED REPORT EKG Measurement Heart [id number] <Conclusion> Normal sinus rhythm Normal ECG
[2017-09-20 14:57] VITALS: BP 172/60
--- NOTE | 2017-09-20 16:17 | PN ---
DATE: 09/19/2017 SUBJECTIVE: The patient is comfortable, no distress. She did complain of left-sided arm and breast area pain, it stays for 10 to 15 minutes and go away while she is sitting, but however, the patient did not have any shortness of breath, any sweating, nausea associated with that and the patient wants to go home. The patient advised to stay in to be seen by Dr. Barry and to get the troponin and EKG. PHYSICAL EXAMINATION VITAL SIGNS: On 09/19/2017, temperature 98.3, heart rate 94, blood pressure 161/69, respirations 22 and on 2 L, she is saturating 98%. HEAD AND NECK: Normal. No JVD. No thyromegaly. CHEST: Clear. Good air entry bilaterally. CARDIAC: First sound and second sound normal. ABDOMEN: Soft, obese with two colostomy bags. EXTREMITIES: Mild edema. NEUROLOGIC: Normal. The patient is moving better, able to walk with a walker to the bathroom and getting out of bed to chair by herself. LABORATORY DATA: Shows white count 7.5, hemoglobin 9.1, hematocrit 29.8, and platelets 193. Sodium 141, potassium 4.3, chloride 106, bicarbonate 30, BUN 28, creatinine 1.6, and blood sugar of 160s. Magnesium has been running low, we will replace it. Repeat one is 1.8. IMPRESSION AND PLAN 1. Acute renal failure, improved with moderate diuresis with gentle diuretics, replacement and hydration. We will continue to monitor her kidney functions. 2. Congestive heart failure. The patient currently on Lasix, seems to be doing well, probably had some more chronic diastolic heart failure. 3. Chronic obstructive pulmonary disease, obstructive sleep apnea, morbid obesity. The patient refused BiPAP. 4. Diabetes, insulin dependent. Continue insulin regimen. Blood sugar in the 130 range. 5. Rectal cancer with bilateral colostomies, status post radiation and chemo. Last PET scan in 2017 was negative. Follow up with Dr. Faye as outpatient. 6. The patient has left-sided arm pain and breast area pain. We will get an EKG. EKG was read as normal sinus rhythm. No ST-T changes and her troponin came back two times within normal range. 7. Morbid obesity, general weakness. Continue physical therapy even at home and resume all her medications. The patient, otherwise, seems okay; will be discharged and will be followed as outpatient. Elroy Florian MD
--- NOTE | 2017-09-20 18:09 | PN ---
DATE: 09/20/2017 SUBJECTIVE: The patient is seen lying in bed. She is awake. She is alert. She is comfortable. She denies any headaches or dizziness. PHYSICAL EXAMINATION: GENERAL: Obese elderly lady, lying in bed. VITAL SIGNS: Blood pressure 135/63, heart rate 80, respiratory rate 20, temperature 98.7. HEENT: Normocephalic, atraumatic. NECK: Supple, no JVD. LUNGS: Bilateral equal air entry, bilateral equal expansion, no rales. CARDIAC: S1 and S2, regular rate and rhythm, no murmur, rub. ABDOMEN: Obese, distended, soft, nontender, positive ileostomy, bowel sounds present. EXTREMITIES: 1+ pitting edema of the lower extremities. INTAKE AND OUTPUT: Not charted. LABORATORY DATA: Hemoglobin 9, potassium 4.3. Creatinine 1.6. A1c 7.7. Phosphorus 4.6 magnesium 1.8. Albumin 2.8. MEDICATIONS: Hydralazine 50 t.i.d., losartan 25, Dilaudid 4 mg p.r.n., DuoNeb, Ecotrin, Eliquis, Humalog, Imdur, Januvia, Lipitor, Lopressor, Lyrica, mag oxide 400 t.i.d., amlodipine 10, Tylenol, and Zaroxolyn. ASSESSMENT: 1. Status post acute kidney injury, resolved. 2. Chronic kidney disease stage 3, stable. 3. Morbid obesity. 4. Congestive heart failure, compensated. 5. [id number] diabetes mellitus. 6. Hypertension. 7. Sleep apnea. 8. History of rectal cancer. PLAN: 1. Continue current antihypertensives. 2. Continue low-dose losartan. 3. Follow up as outpatient. Kristine Archibald MD
[2017-09-21] MEDS ORDERED: Pneumococcal 23-Valent Vaccine IM ONE (10:00)
--- NOTE | 2017-09-21 16:51 | DS ---
HISTORY OF PRESENT ILLNESS: The patient has been admitted to TCU after an episode of acute renal injury, whose creatinine went up to 4.5. The patient on medical floor, has hydrations, IV fluid, holding Lasix, the patient did very well, and her creatinine start coming down to below 2. The patient was transferred to Transitional Care Unit for physical therapy because of deconditioning, generalized weakness associated with chronic back pain, morbid obesity and generalized weakness due to multiple medical problems including rectal cancer with 2 colostomy, hypertension, hypercholesterolemia, morbid obesity with gait disorder. The patient will be in TCU for continuation of physical therapy and continuation of her medical therapy. Her sugar seems stable in 100 to 200 range. No other complaint, no fever, no chills, no nausea, no vomiting. Her appetite is improving. Her mental status a lot better than before. The patient seems doing very well, seen by different consultants, seen by Pulmonary consult Dr. Ayala, Cardiology consult Dr. Barry and seen by Oncology Dr. Faye and has been managed for blood pressure and hypertension and diabetes by Dr. Florian, primary care and also followed by Dr. Archibald for renal functions, which seems stable. The patient's medical condition otherwise stable and will be discharged home on 09/20/2017. PHYSICAL EXAMINATION: VITAL SIGNS: Temperature 98, heart rate 80, blood pressure 135/63, respirations 18, sat 95%. HEAD AND NECK: Normal. No JVD, no thyromegaly. CHEST: Clear. Good air entry. CARDIAC: First sound and second sound normal. ABDOMEN: Soft, obese, nontender with 2 colostomy bags, one in each side. EXTREMITIES: Mild edema. NEUROLOGIC: She is more alert, awake, oriented x3 and move all extremities and no sensory deficits. LABORATORY DATA: White count 5.6, hemoglobin 9, hematocrit 29.4, platelets 177. Chemistry: Sodium 141, potassium 4.3, chloride 106, bicarbonate 30, BUN 28, creatinine is 1.6, blood sugar 132, phosphorus 4.6, calcium 8.4. Liver function test is normal. Total protein 5.7, albumin 2.8, globulin 2.9, triglycerides 163, LDL 99, HDL 36, and total cholesterol 177. The patient also has a TSH, which was normal. DISCHARGE DIAGNOSES: As follows: 1. Acute renal failure, resolved. 2. Congestive heart failure, is chronic diastolic heart failure, probably mixed with chronic systolic. 3. Pulmonary hypertension. 4. Insulin-dependent diabetes. 5. Morbid obesity. 6. Chronic obstructive pulmonary disease. 7. Obstructive sleep apnea, need to do sleep study as outpatient. 8. Hypercholesterolemia. 9. Hypertension. 10. Anemia. The patient seen by GI, Dr. Benitez, recommend endoscopy; however, the patient will be done again as he is recommended to be done as outpatient after maximize her medical therapy. 11. Rectal cancer with colostomy bags. 12. Deconditioning and generalized weakness. 13. Electrolyte abnormalities, stable now. 14. Chronic back pain and sciatica, multiple disk prolapse and sciatic on both legs. 15. Gait disorder. PLAN: We will discharge the patient to home. Home reconciliation meds have been done, explained to the patient, Zaroxolyn 2.5 mg will be given every day, no Lasix. Also, the patient will be given Provigil because Nuvigil may be difficult to authorize, so we will try to get Provigil for her. Otherwise, if Nuvigil available, we will give it to her, has been prescribed and we will follow up. Continue insulin, continue blood pressure medicine, which include Toprol XL 100 mg, Norvasc 10 mg. The patient was getting here losartan. We will put her back on Diovan and monitor her electrolytes, Diovan 160 plus hydralazine 25 mg b.i.d. and t.i.d. p.r.n. We will follow up clinically. Continue pain medicine, continue all other medications, magnesium, no Lasix, continue Lipitor, all other medication is being discussed with the patient and all medicine has been sent to the pharmacy. The patient does have narcotics with her for her chronic back pain. She does not need anymore Dilaudid. She moves her bowel good, so no need for any further medication and we will continue follow up as outpatient in the office within a week. Elroy Florian MD
== END 2017-09-20 16:16 | disposition home or self-care (01) | DRG 683 ==
LOC: TRCU 17:43
PROVIDERS: ADMIT Internal Medicine; ATTEND Internal Medicine
PROC: F07Z9FZ Gait Training/Functional Ambulation Treatment using Assistive, Adaptive, Supportive or Protective Equipment (ICD-10-PCS; principal; 2017-09-15)
PROC: F07M6ZZ Therapeutic Exercise Treatment of Musculoskeletal System - Whole Body (ICD-10-PCS; 2017-09-15)
PROC: F08Z2ZZ Grooming/Personal Hygiene Treatment (ICD-10-PCS; 2017-09-15)
PROC: F08Z1ZZ Dressing Techniques Treatment (ICD-10-PCS; 2017-09-15)
PROC: F08Z2ZZ Grooming/Personal Hygiene Treatment (ICD-10-PCS; 2017-09-15)
DX: N17.9 Acute kidney failure, unspecified (principal); I13.0 Hypertensive heart and chronic kidney disease with heart failure and stage 1 through stage 4 chronic kidney disease, or unspecified chronic kidney disease; I50.32 Chronic diastolic (congestive) heart failure; J44.0 Chronic obstructive pulmonary disease with (acute) lower respiratory infection; D68.59 Other primary thrombophilia; N18.3 Chronic kidney disease, stage 3 (moderate); J20.9 Acute bronchitis, unspecified; K21.9 Gastro-esophageal reflux disease without esophagitis; M54.30 Sciatica, unspecified side; M77.40 Metatarsalgia, unspecified foot; N25.81 Secondary hyperparathyroidism of renal origin; T50.2X5A Adverse effect of carbonic-anhydrase inhibitors, benzothiadiazides and other diuretics, initial encounter; Z53.20 Procedure and treatment not carried out because of patient's decision for unspecified reasons; Z79.01 Long term (current) use of anticoagulants; Z79.4 Long term (current) use of insulin; Z79.82 Long term (current) use of aspirin; Z85.048 Personal history of other malignant neoplasm of rectum, rectosigmoid junction, and anus; Z86.711 Personal history of pulmonary embolism; Z86.718 Personal history of other venous thrombosis and embolism; Z87.442 Personal history of urinary calculi; D63.1 Anemia in chronic kidney disease; E11.22 Type 2 diabetes mellitus with diabetic chronic kidney disease; E66.01 Morbid (severe) obesity due to excess calories; E78.5 Hyperlipidemia, unspecified; E83.42 Hypomagnesemia; G47.33 Obstructive sleep apnea (adult) (pediatric); G89.29 Other chronic pain; I25.10 Atherosclerotic heart disease of native coronary artery without angina pectoris; Z90.49 Acquired absence of other specified parts of digestive tract; Z91.19 Patient's noncompliance with other medical treatment and regimen; Z92.21 Personal history of antineoplastic chemotherapy; Z92.3 Personal history of irradiation; Z93.3 Colostomy status; Z95.5 Presence of coronary angioplasty implant and graft

== ENCOUNTER 2018-02-10 18:31 | Inpatient (IN) | payer MEDICARE, OTHER ==
[2018-02-10 18:32] VITALS: BMI 50.4
--- NOTE | 2018-02-10 21:10 | ED PDOC ---
Arrival/HPI <CarmenOsman - Last Filed: 02/10/18 21:15> - General Historian: Patient, Family <Marisel Barnes - Last Filed: 02/10/18 23:59> - General Chief Complaint: Weakness/Neurological Deficit Time Seen by Provider: 02/10/18 18:52 - History of Present Illness Narrative History of Present Illness (Text): 02/10/18 21:04 62-year-old female presents today with chronic low back pain. pt states the she has been having pain for a long time. pt states she took 16mg of hydromorphine at home 2 days ago and ended up standing and falling in the bathroom. pt states she felt unsteady on her feet and fell to the ground. pt denies fever/chills. pt states since then the pain is unchanged but she states she cant walk. pt states she just feels generally weak. pt denies cp or sob. no urinary symptoms. pt c/o chronic mid low back pain. pt states she is on 3L oxygen at home via nasal cannula. pt denies headache, denies neck pain. pt denies numbness or tingling in the lower extremities. no other complaints. (Marisel Barnes) Past Medical History - Provider Review Nursing Documentation Reviewed: Yes - Travel History Have you recently traveled outside [place] w/in the past 3 mons?: No - Infectious Disease Hx of Infectious Diseases: None - Tetanus Immunization Tetanus Immunization: Unknown - Reproductive Menopause: Yes - Cardiac Hx Congestive Heart Failure: Yes - Pulmonary Hx Respiratory Disorders: Yes Hx Bronchitis: Yes - Neurological Hx Neurological Disorder: Yes Hx Dizziness: Yes - HEENT Hx Macular Degeneration: No - Renal Hx Renal Disorder: Yes Hx Kidney Stones: Yes - Endocrine/Metabolic Hx Diabetes Mellitus Type 2: Yes - Hematological/Oncological Hx Blood Disorders: No - Integumentary Hx Dermatological Disorder: No - Musculoskeletal/Rheumatological Hx Falls: No - Gastrointestinal Hx Gastrointestinal Disorders: Yes (RECTAL CA WITH COLOSTOMY,GI BLEED) - Genitourinary/Gynecological Hx Genitourinary Disorders: Yes (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,UTI) - Psychiatric Hx Psychophysiologic Disorder: Yes Hx Anxiety: Yes Hx Substance Use: No - Surgical History Hx Appendectomy: Yes Hx Coronary Stent: Yes Other/Comment: colostomy - Anesthesia Hx Anesthesia: Yes Hx Anesthesia Reactions: No Hx Malignant Hyperthermia: No - Suicidal Assessment Feels Threatened In Home Enviroment: No <Marisel Barnes - Last Filed: 02/10/18 23:59> Family/Social History - Physician Review Nursing Documentation Reviewed: Yes Family/Social History: Unknown Family HX Smoking Status: Never Smoked Hx Alcohol Use: No Hx Substance Use: No Hx Substance Use Treatment: No <Marisel Barnes - Last Filed: 02/10/18 23:59> Allergies/Home Meds <Osman Morales - Last Filed: 02/10/18 21:15> <Marisel Barnes - Last Filed: 02/10/18 23:59> Allergies/Adverse Reactions: Allergies No Known Allergies Allergy (Verified 02/10/18 19:15) Home Medications: Home Meds Medication Instructions Recorded Confirmed Apixaban [Eliquis] 1 tab PO DAILY 02/10/18 02/10/18 Aspirin [Adult Low Dose Aspirin EC] 1 tab PO DAILY 02/10/18 02/10/18 Furosemide [Lasix] 1 tab PO HS 02/10/18 02/10/18 Hydralazine HCl [Hydralazine HCl] 25 mg PO TID 02/10/18 02/10/18 Isosorbide Mononitrate [Imdur] 1 tab PO DAILY 02/10/18 02/10/18 Metoprolol Succinate [Kapspargo 1 tab PO DAILY 02/10/18 02/10/18 Sprinkle] Oxybutynin Chloride [Oxybutynin 1 tab PO DAILY 02/10/18 02/10/18 Chloride ER] Pantoprazole [Protonix EC Tab] 1 tab PO DAILY 02/10/18 02/10/18 Pregabalin [Lyrica] 1 tab PO DAILY 02/10/18 02/10/18 Primidone [Mysoline] 1 tab PO DAILY 02/10/18 02/10/18 Simvastatin [Zocor] 1 tab PO HS 02/10/18 02/10/18 amLODIPine [Norvasc] 1 tab PO DAILY 02/10/18 02/10/18 metOLazone [Zaroxolyn] 1 tab PO DAILY 02/10/18 02/10/18 Review of Systems - Review of Systems Constitutional: Fatigue. absent: Fevers Respiratory: absent: SOB, Cough Cardiovascular: absent: Chest Pain, Palpitations Gastrointestinal: Abdominal Pain. absent: Constipation, Diarrhea, Nausea, Vomiting Genitourinary Female: absent: Dysuria, Frequency, Hematuria Musculoskeletal: Back Pain. absent: Arthralgias Skin: absent: Rash, Pruritis Neurological: absent: Headache, Dizziness Psychiatric: absent: Anxiety, Depression, Suicidal Ideation <Marisel Barnes - Last Filed: 02/10/18 23:59> Physical Exam Vital Signs Reviewed: Yes Temperature: Afebrile Blood Pressure: Hypertensive Pulse: Regular Respiratory Rate: Normal Appearance: Positive for: Well-Appearing, Non-Toxic, Comfortable Pain Distress: None Mental Status: Positive for: Alert and Oriented X 3 - Systems Exam Head: Present: Atraumatic Mouth: Present: Moist Mucous Membranes Neck: Present: Normal Range of Motion Respiratory/Chest: Present: Clear to Auscultation, Good Air Exchange. No: Respiratory Distress, Accessory Muscle Use Cardiovascular: Present: Regular Rate and Rhythm, Normal S1, S2. No: Murmurs Abdomen: Present: Tenderness (minimal diffuse abd tenderness). No: Distention, Peritoneal Signs, Rebound, Guarding Back: Present: Normal Inspection, Midline Tenderness, Paraspinal Tenderness Upper Extremity: Present: Normal Inspection, Normal ROM Lower Extremity: Present: Normal Inspection, Edema, NORMAL PULSES, Other (pt with inability to straight raise lift legs off the bed. ). No: CALF TENDERNESS , Normal ROM Neurological: Present: GCS=15, Speech Normal Skin: Present: Warm, Dry, Normal Color Psychiatric: Present: Alert, Oriented x 3 <Marisel Barnes - Last Filed: 02/10/18 23:59> Vital Signs Temp Pulse Resp BP Pulse Ox 02/10/18 19:51 98.3 F 81 22 156/76 H 96 Medical Decision Making <Osman Morales - Last Filed: 02/10/18 21:15> <Marisel Barnes - Last Filed: 02/10/18 23:59> ED Course and Treatment: 02/10/18 22:24 62yr old female with chronic back pain abdominal pain and generalized weakness CBC: hgb; 9 CMP; bun: 48 cr; 1.8 ekg; normal sinus rhythm at 90 bpm normal axis no ST elevations cxr; no infiltrate. ct head; FINDINGS: Brain: Calcification right basal ganglia. There is cerebral and cerebellar cortical volume loss compatible with the patient's age. Scattered low density areas in the periventricular white matter and basal ganglia probably reflect chronic small vessel ischemic changes. Vascular calcifications are present. There is no intracranial hemorrhage or mass. No abnormal extra-axial or parenchymal fluid collections. Posterior fossa is unremarkable. Ventricles: The ventricles and basilar cisterns are prominant likely related to chronic volume loss. Bones/joints: . No acute fracture. Sinuses: Mild mucosal thickening in the ethmoid sinuses present. Mastoid air cells: Normal as visualized. No mastoid effusion. Soft tissues: Normal. IMPRESSION: 1. Chronic changes probably related to small vessel ischemia present. 2. No acute intracranial process present.. ct abd/pelvis; FINDINGS: Lower thorax: Interstitial thickening in the lung bases. Cardiomegaly. ABDOMEN: Streak artifact does degrade image quality secondary to body habitus Liver: . No mass for noncontrasted exam. Gallbladder and bile ducts: . No calcified stones. No ductal dilation. Pancreas: . No ductal dilation. Spleen: . No splenomegaly. Adrenals: There is left adrenal nodule measuring 19 mm noted previously. Nonspecific. Kidneys and ureters: Prominent hyperdense areas in the right side of the kidney present unclear whether this represents proteinaceous or hemorrhagic cyst further evaluation with post contrast images may be warranted on followup. Stomach and bowel: Large anterior -abdominal wall hernia with extension of small bowel loops through the hernia defect. Extension of stomach through the hernia present as well. This was present previously. No definite proximal obstruction present. Left-sided abdominal wall hernia present as well with extension of the decompressed bowel through the hernia defect which is also previously present. Left anterior -abdominal ostomy site present . Appendix: Appendix is not clearly visualized and therefore difficult to characterize. PELVIS: Bladder: Distended urinary bladder. Reproductive: Unremarkable as visualized. Subperitoneal space: Extensive presacral soft tissue thickening is again identified as noted previously. ABDOMEN and PELVIS: Intraperitoneal space: Nonspecific minimal mesenteric stranding. Bones/joints: Degenerative spondylosis. Soft tissues: Stranding of the anterior subcutaneous soft tissue fat in the lower pelvis present. Vasculature: Diffuse vascular calcifications present. IVC filter present. Lymph nodes: . No enlarged lymph nodes. Other findings: . Nonspecific perinephritic stranding bilaterally present. Vascular calcifications diffusely present. IMPRESSION: 1. There is left adrenal nodule measuring 19 mm noted previously. Nonspecific. 2. Prominent hyperdense areas in the right side of the kidney present unclear whether this represents proteinaceous or hemorrhagic cyst further evaluation with post contrast images may be warranted on followup. 3. Nonspecific minimal mesenteric stranding. 4. Large anterior -abdominal wall hernia with extension of small bowel loops through the hernia defect. Extension of stomach through the hernia present as well. This was present previously. No definite proximal obstruction present. Left-sided abdominal wall hernia present as well with extension of the decompressed bowel through the hernia defect which is also previously present. Left anterior - abdominal ostomy site present 02/10/18 23:[address] pt c/o worsening back pain; pt states she always get worsening back pain after laying in CT table. pt states this is the same pain she always has in the back. 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 denies any cp or sob. will start patient on rocephin for UTI. morphine for pain. case was discussed with dr. morillo, who advised to admit to hospitalist service. case discussed with accepts admission to med/surg impression; intractable back pain, generalized weakness, UTI admit to med/surg (Marisel Barnes) - Lab Interpretations Lab Results: 02/10/18 21:15 02/10/18 21:15 Lab Results 02/10/18 21:15: WBC 10.1 D, RBC 3.59, Hgb 9.0 L, Hct 30.5 L, MCV 85.0, MCH 25.1 , MCHC 29.5 L, RDW 16.0 H, Plt Count 352, MPV 11.4 H, Gran % 78.8 H, Lymph % ( Auto) 14.4 L, [place] % (Auto) 4.0, Eos % (Auto) 2.7, Baso % (Auto) 0.1, Gran # 7.97 H, Lymph # (Auto) 1.5, [place] # (Auto) 0.4, Eos # (Auto) 0.3, Baso # (Auto) 0.01 02/10/18 21:15: Sodium 140, Potassium 4.9, Chloride 100, Carbon Dioxide 35 H, Anion Gap 9 L, BUN 48 H, Creatinine 1.8 H, Est GFR ( Amer) 34, Est GFR ( Non-Af Amer) 28, Random Glucose 137 H, Calcium 9.2, Total Bilirubin 0.2, AST 39 H D, ALT 11, Alkaline Phosphatase 126, Total Protein 7.1, Albumin 3.3, Globulin 3.8, Albumin/Globulin Ratio 0.9 L, Lipase 37 02/10/18 20:05: Urine Color Light yellow, Urine Appearance Clear, Urine pH 6.5, Ur Specific [place] 1.025, Urine Protein 100 H, Urine Glucose (UA) Negative, Urine Ketones Negative, Urine Blood Negative, Urine Nitrate Negative, Urine Bilirubin Negative, Urine Urobilinogen 0.2, Ur Leukocyte Esterase Small H, Urine RBC 2 - 5, Urine WBC 15 - 20, Ur Epithelial Cells 6 - 8, Urine Bacteria Many, Urine Other Fiber - RAD Interpretation Radiology Orders: 02/10/18 19:31 CHEST PORTABLE [RAD] Stat 02/10/18 19:33 HEAD W/O CONTRAST [CT] Stat 02/10/18 22:14 ABD & PELVIS W/O PO OR IV CONT [CT] Stat - PA / TERRESTRIAL ECOLOGIST / Resident Statement VERONIQUE has reviewed & agrees with the documentation as recorded. / has examined the patient and agrees with the treatment plan. <Osman Morales - Last Filed: 02/10/18 21:15> Disposition/Present on Arrival <Osman Morales - Last Filed: 02/10/18 21:15> - Present on Arrival Any Indicators Present on Arrival: No History of DVT/PE: No History of Uncontrolled Diabetes: No Urinary Catheter: No History of Decub. Ulcer: No History Surgical Site Infection Following: None - Disposition Have Diagnosis and Disposition been Completed?: Yes Disposition Time: 23:33 Patient Plan: Admission <Marisel Barnes - Last Filed: 02/10/18 23:59> - Disposition Diagnosis: Urinary tract infection, Back pain, Renal insufficiency Disposition: HOSPITALIZED Condition: FAIR Referrals: Elroy Morillo MD [Primary Care Provider] - Follow up with primary Forms: [employer] (Vietnamese)
[2018-02-10 21:15] LABS: PH,URINE 6.5 (4.7-8.0); URINE BILIRUBIN NEGATIVE (NEGATIVE); URINE BLOOD NEGATIVE (NEGATIVE); URINE GLUCOSE (UA) NEGATIVE (NEGATIVE); URINE LEUKOCYTE ESTERASE SMALL Leu/uL (NEGATIVE); URINE PROTEIN 100 mg/dL (<30 mg/dL); URINE UROBILINOGEN 0.2 E.U./dL (<1 E.U./dL)
[2018-02-10 21:22] LABS: URINE APPEARANCE CLEAR (CLEAR); URINE COLOR LIGHT YELLOW (YELLOW)
[2018-02-10 22:00] LABS: BASO # 0.01 K/mm3 (0.0-2.0); BASO % 0.1 % (0.0-3.0); EOS # 0.3 (0.0-0.7); EOS % 2.7 % (1.5-5.0); GRAN # 7.97 (1.4-6.5); GRAN % 78.8 % (50.0-68.0); LYMPH # 1.5 (1.2-3.4); LYMPH % 14.4 % (22.0-35.0); MEAN CORPUSCULAR HEMOGLOBIN 25.1 pg (25.0-35.0); MEAN CORPUSCULAR HGB CONC 29.5 g/dl (31.0-37.0); MEAN PLATELET VOLUME 11.4 fl (7.0-11.0); MONO # 0.4 (0.1-0.6); RBC 3.59 10^6/uL (3.5-6.1); WHITE BLOOD COUNT 10.1 10^3/ul (4.5-11.0)
[2018-02-10 22:07] LABS: ALB/GLOB RATIO 0.9 (1.1-1.8); ALBUMIN 3.3 g/dL (3.0-4.8); CALCIUM 9.2 mg/dL (8.4-10.5)
[2018-02-10 22:16] LABS: URINE BACTERIA MANY (NEG); URINE WBC 15 - 20 /hpf (0-6)
[2018-02-10] MEDS ORDERED: cefTRIAXone 1 gm 1 GM/100 ML BAG IVPB STA (23:30)
[2018-02-10] MEDS ORDERED: Morphine 4 mg/ml ISec IVP STA (23:30)
--- NOTE | 2018-02-11 02:38 | CP.PCM.HP ---
<Shay Cunningham - Last Filed: 02/11/18 06:11> History of Present Illness - History of Present Illness History of Present Illness: Shay Cunningham DO, PGY-1 History and physical for hospitalist CC: fall with back pain This is a 62 year old female with PMH of renal failure, chronic renal insufficiency, anemia, colorectal ca s/p resection, colostomy x 2, morbid obesity, obstructive sleep apnea, COPD, chronic back pain, djd, sciatica, DM2, HTN, hypercholesterolemia, CAD with baremetal stent placed in 2013, pulmonary embolus and DVT who was BIBA with complaints of difficulty ambulating and lower back pain s/p fall. Pt states that at 7 am on 02/08/18 she accidentally took Dilaudid 8 mg x 2 PO instead of her usual one tablet. When she woke up at 11 am that morning, her legs gave out and she fell on the floor. She denies hitting her head, but states that she has had weakness and difficulty ambulating since then. Pt also endorses dysuria for the past couple of days. She denies loss of consciousness, urinary or bowel incontinence, fever, chills, chest pain, SOB, abdominal pain, n/v/d. Of note, pt states that she has had worsening of her hand tremors over the past 2-3 weeks. Pt talked with her PMD, Dr. Florian, who informed her to to increase her Primidone 50 mg PO from 1/2 tablet to 1 full tablet. Pt denies any alleviation of symptoms from the dosage increase. A 12-point ROS was reviewed and is otherwise unremarkable. PMD: Dr. Florian PMHx: renal failure, chronic renal insufficiency, anemia, colorectal ca s/p resection, colostomy x 2, morbid obesity, obstructive sleep apnea, COPD, chronic back pain, djd, sciatica, DM2, HTN, hypercholesterolemia, CAD with baremetal stent placed in 2013, pulmonary embolus and DVT PSHx: colectomy with colostomy, appendectomy, h/o Meds: Amlodipine, Apixaban, Oxybutynin Chloride ER, Simvastatin, Primirdone, Metolazone, Hydralazine, Metoprolol succinate, Isosorbide mononitrate, furosemide, aspirin, pantoprazole. Allx: NKDA Social Hx: Denies smoking or drinking. Present on Admission - Present on Admission Any Indicators Present on Admission: Yes History of DVT/PE: Yes Review of Systems - Review of Systems All systems: reviewed and no additional remarkable complaints except (see HPI) Past Patient History - Infectious Disease Hx of Infectious Diseases: None - Tetanus Immunizations Tetanus Immunization: Unknown - Past Social History Smoking Status: Never Smoked - CARDIAC Hx Congestive Heart Failure: Yes - PULMONARY Hx Respiratory Disorders: Yes Hx Bronchitis: Yes - NEUROLOGICAL Hx Neurological Disorder: Yes Hx Dizziness: Yes - HEENT Hx Macular Degeneration: No - RENAL Hx Chronic Kidney Disease: Yes Hx Kidney Stones: Yes - ENDOCRINE/METABOLIC Hx Diabetes Mellitus Type 2: Yes - HEMATOLOGICAL/ONCOLOGICAL Hx Blood Disorders: No - INTEGUMENTARY Hx Dermatological Problems: No - MUSCULOSKELETAL/RHEUMATOLOGICAL Hx Falls: No - GASTROINTESTINAL Hx Gastrointestinal Disorders: Yes (RECTAL CA WITH COLOSTOMY,GI BLEED) - GENITOURINARY/GYNECOLOGICAL Hx Genitourinary Disorders: Yes (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,UTI) - PSYCHIATRIC Hx Psychophysiologic Disorder: Yes Hx Anxiety: Yes Hx Substance Use: No - SURGICAL HISTORY Hx Appendectomy: Yes Hx Coronary Stent: Yes Other/Comment: colostomy - ANESTHESIA Hx Anesthesia: Yes Hx Anesthesia Reactions: No Hx Malignant Hyperthermia: No Meds Allergies/Adverse Reactions: Allergies Allergy/AdvReac Type Severity Reaction Status Date / Time No Known Allergies Allergy Verified 02/10/18 19:15 Physical Exam - Constitutional Appears: Well, Non-toxic - Head Exam Head Exam: ATRAUMATIC, NORMAL INSPECTION - Eye Exam Eye Exam: EOMI Pupil Exam: PERRL - ENT Exam ENT Exam: Mucous Membranes Moist - Respiratory Exam Respiratory Exam: Clear to Auscultation Bilateral (examination difficult due to patient's body habitus) - Cardiovascular Exam Cardiovascular Exam: REGULAR RHYTHM, +S1, +S2 - GI/Abdominal Exam GI & Abdominal Exam: Normal Bowel Sounds, Soft (morbidly obese), Tenderness ( mild tenderness around colostomy site; (+) colostomy bag with nonbloody stool; ( -) suprapubic tenderness) - Extremities Exam Extremities exam: Positive for: normal capillary refill (<2seconds), pedal edema (bilateral 1+ pitting edema, (-) calf tenderness), pedal pulses present ( difficult to assess due to morbid obesity and pitting edema) - Neurological Exam Neurological exam: Alert, Oriented x3 - Psychiatric Exam Psychiatric exam: Normal Affect, Normal Mood - Skin Skin Exam: Normal Color, Warm Additional comments: (-) ecchymoses, or petechiae noted on exam, although pt's dorsum of the body was unable to be assessed due to body habitus Results - Vital Signs Recent Vital Signs: Last Vital Signs Temp 98.3 F 02/10/18 19:51 Pulse 81 02/10/18 19:51 Resp 22 02/10/18 19:51 BP 156/76 H 02/10/18 19:51 Pulse Ox 96 02/10/18 19:51 - Labs Result Diagrams: 02/10/18 21:15 02/10/18 21:15 Assessment & Plan - Assessment and Plan (Free Text) Assessment: This is a 62 year old female with PMH of renal failure, chronic renal insufficiency, anemia, colorectal ca s/p resection, colostomy x 2, morbid obesity, obstructive sleep apnea, COPD, chronic back pain, djd, sciatica, DM2, HTN, hypercholesterolemia, CAD with bare metal stent placed in 2013, pulmonary embolus and DVT who was BIBA with complaints of difficulty ambulating and lower back pain s/p fall (02/08/18) after accidentally taking double her regular pain medication dosage. Pt is also complaining of dysuria for the last couple of days. Patient to be admitted for observation and evaluation. Plan: 1. Back pain secondary to fall - Head CT shows no acute intracranial process present - Abdominal CT shows 1. There is left adrenal nodule measuring 19 mm noted previously. Nonspecific. 2. Prominent hyperdense areas in the right side of the kidney present unclear whether this represents proteinaceous or hemorrhagic cyst further evaluation with post contrast images may be warranted on followup. 3. Nonspecific minimal mesenteric stranding. 4. Large anterior -abdominal wall hernia with extension of small bowel loops through the hernia defect. Extension of stomach through the hernia present as well. This was present previously. No definite proximal obstruction present. Left-sided abdominal wall hernia present as well with extension of the decompressed bowel through the hernia defect which is also previously present. Left anterior - abdominal ostomy site present - lidoderm patch to back - morphine 2 mg q4h - percocet 5/325 mg PO Q6H PRN pain - physical therapy evaluation and treatment; given morbid obesity this may be challenging - Lumbosacral MRI without contrast to rule out spinal subdural or epidural hematoma due to pt being on anticoagulation 2. UTI - no leukocytosis at this time - small leukocyte esterase, urine WBCs 15-20 - urine culture, blood culture x2 - continue rocephin - f/u CBC in am 3. SHELBI on CKD stage 3 - BUN/Cr is 48/1.8 - no fluids at this time, fluid restriction to 2 L daily - hold home lasix, metolazone - f/u CMP in am 4. Abdominal CT findings of hyperdense area (see full report) - Prominent hyperdense areas in the right side of the kidney present unclear whether this represents proteinaceous or hemorrhagic cyst further evaluation with post contrast images may be warranted on followup. - nephrology consulted, recs appreciated 5. Tremors, essential - continue pramidone as per PMD - f/u TSH, t4, vitamin d levels 6. Hypertension - continue home amlodipine, hydralazine, metoprolol - pt is currently hemodynamically stable 7. CHF - last echo done 09/01/17 shows LVEF of 53.0%. Moderate concentric left ventricular hypertrophy. Transmitral doppler flow patten is grade II- pseudonormal filling. 8. Hyperlipidemia - continue home atorvastatin - last lipid panel was done 09/20/17 which was normal except for TG of 163 Case discussed with attending physician, Dr. Landrum - Date & Time Date: 02/11/18 Time: 03:00 <Shagufta Landrum - Last Filed: 02/18/18 19:09> Results - Vital Signs Recent Vital Signs: Last Vital Signs Temp 98.7 F 02/18/18 14:00 Pulse 82 02/18/18 17:04 Resp 20 02/18/18 14:00 BP 161/62 H 02/18/18 17:04 Pulse Ox 94 L 02/18/18 14:00 - Labs Result Diagrams: 02/18/18 06:00 02/18/18 06:00 Labs: Laboratory Results - last 24 hr 02/17/18 02/18/18 02/18/18 21:11 06:00 06:00 WBC 6.9 RBC 3.62 Hgb 8.8 L Hct 31.0 L MCV 85.6 MCH 24.3 L MCHC 28.4 L RDW 15.5 H Plt Count 358 MPV 11.2 H Sodium 138 Potassium 4.9 Chloride 98 Carbon Dioxide 37 H Anion Gap 8 L BUN 63 H Creatinine 2.3 H Est GFR ( Amer) 26 Est GFR (Non-Af Amer) 21 POC Glucose (mg/dL) 196 H Random Glucose 226 H Calcium 8.6 Total Bilirubin 0.1 L AST 29 ALT 13 Alkaline Phosphatase 97 Total Protein 6.3 Albumin 2.9 L Globulin 3.4 Albumin/Globulin Ratio 0.9 L 02/18/18 02/18/18 02/18/18 07:26 11:30 11:59 WBC RBC Hgb Hct MCV MCH MCHC RDW Plt Count MPV Sodium Potassium Chloride Carbon Dioxide Anion Gap BUN Creatinine Est GFR ( Amer) Est GFR (Non-Af Amer) POC Glucose (mg/dL) 220 H 179 H 179 H Random Glucose Calcium Total Bilirubin AST ALT Alkaline Phosphatase Total Protein Albumin Globulin Albumin/Globulin Ratio 02/18/18 15:53 WBC RBC Hgb Hct MCV MCH MCHC RDW Plt Count MPV Sodium Potassium Chloride Carbon Dioxide Anion Gap BUN Creatinine Est GFR ( Amer) Est GFR (Non-Af Amer) POC Glucose (mg/dL) 215 H Random Glucose Calcium Total Bilirubin AST ALT Alkaline Phosphatase Total Protein Albumin Globulin Albumin/Globulin Ratio Attending/Attestation - Attestation I have personally seen and examined this patient.: Yes I have fully participated in the care of the patient.: Yes I have reviewed all pertinent clinical information: Yes
[2018-02-11] MEDS: Morphine 2 mg/ml ISec IVP SCH ×6 (05:52→16:00)
[2018-02-11] MEDS: Pantoprazole 20 mg EC Tab PO SCH (05:52)
[2018-02-11] MEDS ORDERED: Pantoprazole 20 mg EC Tab PO SCH (06:00)
--- NOTE | 2018-02-11 07:46 | CT ---
Date of service: 02/10/2018 PROCEDURE: CT HEAD WITHOUT CONTRAST. HISTORY: fall 2 days ago COMPARISON: Comparison is made with the previous study dated 12/31/2015 TECHNIQUE: Axial computed tomography images were obtained through the head/brain without intravenous contrast. Radiation dose: Total exam DLP = 992.73 mGy-cm. This CT exam was performed using one or more of the following dose reduction techniques: Automated exposure control, adjustment of the mA and/or kV according to patient size, and/or use of iterative reconstruction technique. FINDINGS: HEMORRHAGE: No intracranial hemorrhage. BRAIN: No mass effect or edema. Mild atrophy and [id number] white matter changes likely represent chronic microvascular ischemic disease again noted. VENTRICLES: Unremarkable. No hydrocephalus. CALVARIUM: Unremarkable. PARANASAL SINUSES: Unremarkable as visualized. No significant inflammatory changes. MASTOID AIR CELLS: Unremarkable as visualized. No inflammatory changes. OTHER FINDINGS: None. IMPRESSION: Suboptimal study due to patient's motion. No evidence of acute intracranial hemorrhage mass effect or midline shift. Mild atrophy and [id number] chronic microvascular white matter ischemic disease. Preliminary report was submitted by [facility] Rad[facility].
[2018-02-11] MEDS ORDERED: Labetalol 5 mg/ml Inj 20ML IV STA (07:51)
[2018-02-11] MEDS ORDERED: Levalbuterol 1.25 MG/3 ML Inhal Soln UD IH STA ×2 (07:51→07:52)
[2018-02-11 08:01] LABS: BASO # 0.02 K/mm3 (0.0-2.0); BASO % 0.1 % (0.0-3.0); EOS # 0.1 (0.0-0.7); EOS % 0.4 % (1.5-5.0); GRAN # 11.92 (1.4-6.5); GRAN % 87.6 % (50.0-68.0); HEMOGLOBIN 9.7 g/dL (12.0-16.0); LYMPH % 7.3 % (22.0-35.0); MEAN CELL VOLUME 84.4 fl (80.0-105.0); MEAN CORPUSCULAR HEMOGLOBIN 25.3 pg (25.0-35.0); MEAN CORPUSCULAR HGB CONC 29.9 g/dl (31.0-37.0); MEAN PLATELET VOLUME 11.4 fl (7.0-11.0); MONO # 0.6 (0.1-0.6); MONO % 4.6 % (1.0-6.0); RBC 3.84 10^6/uL (3.5-6.1); RED CELL DISTRIBUTION WIDTH 16.1 % (11.5-14.5); WHITE BLOOD COUNT 13.6 10^3/ul (4.5-11.0)
[2018-02-11 08:05] LABS: IRON 21 ug/dL (45-180)
[2018-02-11 08:15] LABS: % IRON SATURATION 9 % (20-55); TOTAL IRON BINDING CAPACITY 233 ug/dL (265-497)
[2018-02-11 08:18] LABS: TROPONIN I 0.06 ng/mL
[2018-02-11] MEDS: Metoprolol Succinate 100 mg XL Tab PO SCH (08:23)
--- NOTE | 2018-02-11 08:30 | CT ---
Date of service: 02/10/2018 PROCEDURE: CT Abdomen and Pelvis without intravenous contrast HISTORY: ABDOMINAL PAIN/midline back pain. History of rectal cancer COMPARISON: Comparison is made with the previous study dated 12/31/2015 TECHNIQUE: Axial and reformatted coronal and sagittal CT images of the abdomen and pelvis were obtained without IV or oral contrast administration.. Contrast dose: 0 Radiation dose: Total exam DLP = 1064.78 mGy-cm. This CT exam was performed using one or more of the following dose reduction techniques: Automated exposure control, adjustment of the mA and/or kV according to patient size, and/or use of iterative reconstruction technique. FINDINGS: Suboptimal study due to patient's body habitus. The assessment is also suboptimal due to lack of IV contrast and oral contrast administration. LOWER THORAX: No evidence of pleural effusion or mass lesion. The heart is enlarged. LIVER: No definite evidence of mass lesion in this noncontrast study. GALLBLADDER AND BILE DUCTS: Unremarkable. PANCREAS: Unremarkable. No gross lesion or ductal dilatation. SPLEEN: Unremarkable. ADRENALS: Again noted is low-attenuation 1.9 centimeter lesion at the left adrenal gland which has not significantly changed since the previous CT dated 12/31/2015 and may represent benign adenoma. The right adrenal glands grossly unremarkable. KIDNEYS AND URETERS: There is high attenuation lesion at the midpole of the right kidney measures 2.[address] density of 48 Hounsfield unit noted. Findings may represent hemorrhagic or proteinaceous cysts. However the possibility of solid lesion is not totally excluded. VASCULATURE: IVC filter is seen in place. . No aortic aneurysm. BOWEL: Unremarkable. No obstruction. No gross mural thickening. APPENDIX: There is no evidence of appendicitis. PERITONEUM: Unremarkable. No free fluid. No free air. LYMPH NODES: Unremarkable. No enlarged lymph nodes. BLADDER: The urinary bladder is grossly unremarkable. REPRODUCTIVE: The uterus and adnexa are not clearly visualized. Again seen is pre sacral soft tissue thickening which has not significantly changed since the previous exam. BONES: No acute fracture. OTHER FINDINGS: Again noted is large midline ventral hernia contains part of the stomach, small and large bowel loops without evidence of bowel obstruction or incarceration. IMPRESSION: Suboptimal study due to patient's body habitus and lack of IV and oral contrast administration. No evidence of acute pathology in the abdomen and pelvis. Re- demonstration of 1.9 centimeter low-attenuation nodule at the left adrenal gland. Hyperdense lesion in the right kidney may represent hemorrhagic cyst. The possibility of renal neoplasm is not totally excluded and further assessment by ultrasound or other modality is suggested. Large ventral hernia contains part of the stomach, small and large bowel loops without evidence of bowel obstruction or incarceration. Re- demonstration of pre sacral soft tissue thickening and/or infiltrate. Nonspecific mild mesenteric stranding noted in the mid and lower abdomen. Given the patient's history of rectal cancer further assessment by PET-CT may be obtained if clinically warranted. Preliminary report was submitted by virtual Radiology.
[2018-02-11] MEDS: Insulin Reg-LOW-Coverage SC SCH ×4 (09:00→21:55)
--- NOTE | 2018-02-11 09:01 | RAD ---
Date of service: 02/10/2018 HISTORY: back pain COMPARISON: 09/15/2017 FINDINGS: LUNGS: No active pulmonary disease. PLEURA: No significant pleural effusion identified, no pneumothorax apparent. CARDIOVASCULAR: There is moderate vascular congestion. Mild cardiomegaly OSSEOUS STRUCTURES: No significant abnormalities. VISUALIZED UPPER ABDOMEN: Normal. OTHER FINDINGS: None. IMPRESSION: There is moderate vascular congestion. Mild cardiomegaly
--- NOTE | 2018-02-11 09:05 | RAD ---
Date of service: 02/11/2018 HISTORY: sob COMPARISON: 02/10/2018 FINDINGS: LUNGS: New extensive infiltrate right lung. PLEURA: No significant pleural effusion identified, no pneumothorax apparent. CARDIOVASCULAR: Mild cardiomegaly OSSEOUS STRUCTURES: No significant abnormalities. VISUALIZED UPPER ABDOMEN: Normal. OTHER FINDINGS: None. IMPRESSION: New extensive infiltrate right lung.
[2018-02-11 09:14] LABS: CALCIUM 9.3 mg/dL (8.4-10.5)
[2018-02-11 09:15] LABS: ALB/GLOB RATIO 0.9 (1.1-1.8); ALBUMIN 3.1 g/dL (3.0-4.8)
[2018-02-11] MEDS: Lidocaine 5% Patch TD SCH (09:19)
[2018-02-11] MEDS ORDERED: OXYBUTYNIN CHLORIDE PO SCH (10:00)
[2018-02-11] MEDS ORDERED: metOLazone 2.5 MG TAB PO SCH ×2 (10:00)
[2018-02-11] MEDS ORDERED: METOPROLOL SUCCINATE PO SCH (10:00)
[2018-02-11] MEDS ORDERED: PREGABALIN PO SCH (10:00)
--- NOTE | 2018-02-11 10:14 | CARD ---
APPROVED REPORT Date of service: 02/11/2018 EKG Measurement Heart [id number] <Conclusion> Sinus tachycardia ST & T wave abnormality, consider anterior ischemia Abnormal ECG
[2018-02-11] MEDS: cefTRIAXone 1 gm 1 GM/100 ML BAG IVPB SCH (10:40)
[2018-02-11] MEDS ORDERED: Albuterol-Ipratrop 3 mg / 0.5 (3 ml) UD IH PRN (11:51)
[2018-02-11 11:59] LABS: FERRITIN 86.8 ng/mL
[2018-02-11] MEDS: Azithromycin 250 MG in Sodium Chloride 0.9% 250 ML IVPB SCH (13:12)
--- NOTE | 2018-02-11 14:32 | CP.PCM.CON ---
History of Present Illness - History of Present Illness History of Present Illness: Nephrology Consultation Note: Assessment: critical Acute Kidney Injury (N17.9) likely hemodynamic due to BP fluctuations left adrenal adenoma, Rt renal hyperdense cyst Pneumonia ? fluid overload Diabetic chronic Kidney Disease (E11.22) Hypertensive Chronic Kidney Disease (I12.9) Chronic Kidney Disease (N18.3) Stage 3 with ? mg proteinuria (R80.9) likely due to DM/HTN Anemia Vit D def morbid obesity, CAD s/p stent, COPD/SUMMER, rectal ca s/p colostomy Plan No acute need for renal replacement therapy at this time. . Hypertension control with meds as ordered. Maintain hemodynamics stable. Avoid hypotension. Patient not on ACEI/ARB due to recent SHELBI and elevated K Monitor Input/Output, daily weights and renal function with basic metabolic panel started iron supplements, MVI and weekly Vit D started IV lasix 40 bid check ABG if pt more somnolent or new respi issues arises to check her pCO2 Check urine analysis, spot protein/creatinine, albumin/creatinine ratio Adrenal adenoma work up with plasma renin/aldosterone, plasma metanephrine. outpt 1 mg dexa suppression test repeat renal sono in 6 months to assess her Rt renal cyst Dose meds/antibiotics for reduced GFR. Avoid fleets enema/magnesium based laxatives. Avoid nephrotoxins/NSAIDs/ iodinated contrast (unless needed emergently) Glycemic control Further work up/management as per primary team Thanks for allowing me to participate in care of your patient. Will follow patient with you. Please call if any Qs Dr Dae Dawn Office: [phone] Chief Complaint; fall and back pain Reason for consult: Acute Kidney Injury, CKD 3 HPI: Pt is a 62 F with hx of diabetes Mellitus (15 years), hypertension (years) , CKD 3 with baseline cr 1.2-1.3, morbid obesity, CAD s/p stent, COPD/SUMMER, rectal ca s/p colostomy presented with complaints of fall and low back pain. renal consult for CKD and SHELBI management. pt feels sleepy today. reports mild cough. no urine complaints. found to have lung infiltrates ? Pneumonia Denies OTC/herbal meds or NSAIDs No recent iodinated contrast exposure. No obvious episodes of low BP. In fact BP was high in 200+ range ROS: Cardiovascular: No chest pain. Pulmonary: c/o shortness of breath Gastrointestinal: denies abdominal pain No nausea. No vomiting. Genitourinary: No pain while urinating. Denies blood in urine. All other negative except as mentioned in HPI. has back pain Physical Examination: General Appearance: Comfortable, in no acute respiratory distress, co-operative . morbidly obese. appears somewhat sleepy Vitals reviewed and noted as below Head; Atraumatic, normocephalic ENT: no ulcers no thrush. Tongue is midline. Oropharynx: no rash or ulcers. EYES: Pupils are equal, round and reactive to light accommodation. Eye muscles and extraocular movement intact. Sclera is anicteric. Neck; supple no lymphadenopathy, no thyromegaly or bruit Lungs: Normal respiratory rate/effort. Breath sounds bilateral with crackles + Heart: Normal rate. s1s2 normal. No rub or gallop. Extremities: 2-3+ edema. No varicose veins Neurological: Patient is alert, awake and oriented to person, place and time. No focal deficit. Strength bilateral appropriate and equal Skin: Warm and dry. Normal turgor. No rash. Palpitation: Normal elasticity for age Abdomen: Abdomen is soft. Bowel sounds +. There is no abdominal tenderness, no guarding/rigidity no organomegaly. has colostomy and ventral hernia Psych: normal insight and normal affect/mood MSK: no joint tenderness or swelling. Digits and nails normal, no deformity : kidney or bladder not palpable Labs/imaging reviewed. Past medical history, past surgical history, family history, social history, allergy reviewed and noted as below Family hx: no hx of CKD. Rest non-contributory PET CT 04/2017: neg CT abdomen: left adrenal adenoma 1.9 cm Rt kidney 2.6 cm hyperdense cyst UA 100 protein, neg for blood Past Patient History - Infectious Disease Hx of Infectious Diseases: None - Tetanus Immunizations Tetanus Immunization: Unknown - Past Social History Smoking Status: Never Smoked - CARDIAC Hx Congestive Heart Failure: Yes - PULMONARY Hx Respiratory Disorders: Yes Hx Bronchitis: Yes - NEUROLOGICAL Hx Neurological Disorder: Yes Hx Dizziness: Yes - HEENT Hx Macular Degeneration: No - RENAL Hx Chronic Kidney Disease: Yes Hx Kidney Stones: Yes - ENDOCRINE/METABOLIC Hx Diabetes Mellitus Type 2: Yes - HEMATOLOGICAL/ONCOLOGICAL Hx Blood Disorders: No - INTEGUMENTARY Hx Dermatological Problems: No - MUSCULOSKELETAL/RHEUMATOLOGICAL Hx Falls: No - GASTROINTESTINAL Hx Gastrointestinal Disorders: Yes (RECTAL CA WITH COLOSTOMY,GI BLEED) - GENITOURINARY/GYNECOLOGICAL Hx Genitourinary Disorders: Yes (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,UTI) - PSYCHIATRIC Hx Psychophysiologic Disorder: Yes Hx Anxiety: Yes Hx Substance Use: No - SURGICAL HISTORY Hx Appendectomy: Yes Hx Coronary Stent: Yes Other/Comment: colostomy - ANESTHESIA Hx Anesthesia: Yes Hx Anesthesia Reactions: No Hx Malignant Hyperthermia: No Meds Allergies/Adverse Reactions: Allergies Allergy/AdvReac Type Severity Reaction Status Date / Time No Known Allergies Allergy Verified 02/10/18 19:15 - Medications Medications: Current Medications Amlodipine Besylate (Norvasc) 10 mg PO DAILY [facility] Last Admin: 02/11/18 09:34 Dose: Not Given Apixaban (Eliquis) 2.5 mg PO BID [facility] PRN Reason: Protocol Last Admin: 02/11/18 09:44 Dose: Not Given Aspirin (Ecotrin) 81 mg PO DAILY [facility] Last Admin: 02/11/18 09:31 Dose: Not Given Atorvastatin Calcium (Lipitor) 20 mg PO HS [facility] Ferrous Gluconate (Fergon) 324 mg PO TID [facility] Last Admin: 02/11/18 13:54 Dose: 324 mg Hydralazine HCl (Apresoline) 100 mg PO Q8 [facility] Last Admin: 02/11/18 13:56 Dose: 100 mg Ceftriaxone Sodium (Rocephin 1 Gram Ivpb) 1 gm in 100 mls @ 100 mls/hr IVPB DAILY [facility] PRN Reason: Protocol Stop: 02/12/18 10:00 Last Admin: 02/11/18 10:40 Dose: 100 mls/hr Azithromycin 250 mg/ Sodium (Chloride) 250 mls @ 167 mls/hr IVPB DAILY [facility] PRN Reason: Protocol Stop: 02/15/18 23:59 Last Admin: 02/11/18 13:12 Dose: 167 mls/hr Insulin Human Regular (Humulin R Low) 0 units SC ACHS [facility] PRN Reason: Protocol Last Admin: 02/11/18 12:33 Dose: 2 unit Isosorbide Mononitrate (Imdur) 60 mg PO DAILY [facility] Last Admin: 02/11/18 09:33 Dose: Not Given Lidocaine (Lidoderm) 1 ea TD DAILY [facility] Last Admin: 02/11/18 09:19 Dose: 1 ea Metoprolol Succinate (Toprol Xl) 100 mg PO BRK [facility] Last Admin: 02/11/18 08:23 Dose: 100 mg Morphine Sulfate (Morphine) 4 mg IVP Q4H [facility] Last Admin: 02/11/18 12:30 Dose: Not Given Oxybutynin Chloride (Ditropan Tab) 10 mg PO DAILY [facility] Oxycodone/Acetaminophen (Percocet 5/325 Mg Tab) 1 tab PO Q6H PRN PRN Reason: Pain, severe (8-10) Stop: 02/14/18 03:46 Pantoprazole Sodium (Protonix Ec Tab) 20 mg PO 0600 [facility] Last Admin: 02/11/18 05:52 Dose: 20 mg Pregabalin (Lyrica) 200 mg PO DAILY [facility] Last Admin: 02/11/18 09:20 Dose: 200 mg Primidone (Mysoline) 50 mg PO DAILY [facility] Last Admin: 02/11/18 09:20 Dose: 50 mg Vitamin B Complex/Vit C/Folic Acid (Nephro-Holland) 1 tab PO 0800 [facility] Results - Vital Signs Recent Vital Signs: Last Vital Signs Temp 99.6 F 02/11/18 12:00 Pulse 90 02/11/18 13:56 Resp 20 02/11/18 12:00 BP 128/47 L 02/11/18 13:56 Pulse Ox 92 L 02/11/18 10:40 - Labs Result Diagrams: 02/11/18 07:27 02/11/18 07:52 Labs: Laboratory Results - last 24 hr 02/11/18 02/11/18 02/11/18 06:30 07:00 07:00 WBC RBC Hgb Hct MCV MCH MCHC RDW Plt Count MPV Gran % Lymph % (Auto) Irion % (Auto) Eos % (Auto) Baso % (Auto) Gran # Lymph # (Auto) Irion # (Auto) Eos # (Auto) Baso # (Auto) Differential Comment Sodium Potassium Chloride Carbon Dioxide Anion Gap BUN Creatinine Est GFR ( Amer) Est GFR (Non-Af Amer) POC Glucose (mg/dL) 208 H Random Glucose Serum Osmolality Calcium Phosphorus Magnesium Iron TIBC % Saturation Ferritin 86.8 Total Bilirubin AST ALT Alkaline Phosphatase Troponin I NT-Pro-B Natriuret Pep Total Protein Albumin Globulin Albumin/Globulin Ratio Vitamin B12 > 1000 H 25-OH Vitamin D Total < 12.8 L 02/11/18 02/11/18 02/11/18 07:27 07:29 07:36 WBC 13.6 H D RBC 3.84 Hgb 9.7 L Hct 32.4 L MCV 84.4 MCH 25.3 MCHC 29.9 L RDW 16.1 H Plt Count 404 MPV 11.4 H Gran % 87.6 H Lymph % (Auto) 7.3 L Irion % (Auto) 4.6 Eos % (Auto) 0.4 L Baso % (Auto) 0.1 Gran # 11.92 H Lymph # (Auto) 1.0 L Irion # (Auto) 0.6 Eos # (Auto) 0.1 Baso # (Auto) 0.02 Differential Comment Cancelled Sodium Potassium Chloride Carbon Dioxide Anion Gap BUN Creatinine Est GFR ( Amer) Est GFR (Non-Af Amer) POC Glucose (mg/dL) Random Glucose Serum Osmolality 312 H Calcium Phosphorus Magnesium Iron 21 L TIBC 233 L % Saturation 9 L Ferritin Total Bilirubin AST ALT Alkaline Phosphatase Troponin I NT-Pro-B Natriuret Pep Total Protein Albumin Globulin Albumin/Globulin Ratio Vitamin B12 25-OH Vitamin D Total 02/11/18 02/11/18 02/11/18 07:52 07:52 11:04 WBC RBC Hgb Hct MCV MCH MCHC RDW Plt Count MPV Gran % Lymph % (Auto) Irion % (Auto) Eos % (Auto) Baso % (Auto) Gran # Lymph # (Auto) Irion # (Auto) Eos # (Auto) Baso # (Auto) Differential Comment Sodium 140 Potassium 5.3 H Chloride 100 Carbon Dioxide 31 Anion Gap 14 BUN 42 H Creatinine 1.5 H Est GFR ( Amer) 42 Est GFR (Non-Af Amer) 35 POC Glucose (mg/dL) 223 H Random Glucose 196 H Serum Osmolality Calcium 9.3 Phosphorus 4.5 Magnesium 2.3 H Iron TIBC % Saturation Ferritin Total Bilirubin 0.2 AST 23 ALT 15 Alkaline Phosphatase 145 H Troponin I 0.06 D NT-Pro-B Natriuret Pep 3470 H Total Protein 6.6 Albumin 3.1 Globulin 3.5 Albumin/Globulin Ratio 0.9 L Vitamin B12 25-OH Vitamin D Total 02/11/18 13:00 WBC RBC Hgb Hct MCV MCH MCHC RDW Plt Count MPV Gran % Lymph % (Auto) Irion % (Auto) Eos % (Auto) Baso % (Auto) Gran # Lymph # (Auto) Irion # (Auto) Eos # (Auto) Baso # (Auto) Differential Comment Sodium Potassium Chloride Carbon Dioxide Anion Gap BUN Creatinine Est GFR ( Amer) Est GFR (Non-Af Amer) POC Glucose (mg/dL) Random Glucose Serum Osmolality Calcium Phosphorus Magnesium Iron TIBC % Saturation Ferritin Total Bilirubin AST ALT Alkaline Phosphatase Troponin I 0.09 D NT-Pro-B Natriuret Pep Total Protein Albumin Globulin Albumin/Globulin Ratio Vitamin B12 25-OH Vitamin D Total
[2018-02-11] MEDS: Ergocalciferol 50,000 Intl Units Cap PO SCH (15:18)
--- NOTE | 2018-02-11 15:50 | CARD ---
APPROVED REPORT Date of service: 02/10/2018 EKG Measurement Heart [id number] 188P51 [id number] <Conclusion> Normal sinus rhythm Possible Left atrial enlargement Borderline ECG
[2018-02-11] MEDS ORDERED: Morphine 4 mg/ml ISec IVP SCH (16:31)
[2018-02-11 16:59] LABS: ARTERIAL BLOOD GAS HCO3 33.6 mmol/L (21-28); ARTERIAL BLOOD GAS HEMOGLOBIN 9.1 g/dL (11.7-17.4); ARTERIAL BLOOD GAS O2 CAPACITY 12.6 mL/dl (16-24); ARTERIAL BLOOD GAS O2 SAT 95.2 % (95-98); ARTERIAL BLOOD GAS PCO2 53 mm/Hg (35-45); ARTERIAL BLOOD GAS PH 7.41 (7.35-7.45); ARTERIAL BLOOD GAS TCO2 35.2 mmol.L (22-28)
[2018-02-11] MEDS: Oxycodone/Acetaminophen 5/325 mg Tab PO PRN (18:07)
--- NOTE | 2018-02-11 19:44 | CON ---
DATE: 02/11/2018 CARDIOLOGY CONSULT REASON FOR CONSULTATION: Weakness and recent fall at home. HISTORY OF PRESENT ILLNESS: The patient is a 62-year-old female who has a history of rectal carcinoma, status post surgery and permanent colostomy, history of DVT and pulmonary embolism in the past, history of coronary artery disease, status post PCI to the circumflex artery prior to her surgery for rectal carcinoma few years ago. The patient is morbidly obese, lives at home by herself with the help of homemaker. She presented because of weakness and fall. The patient stated that her legs would not carry her. She does not lose consciousness and she did not sustained any injury from her fall. The patient denies any chest pain to me. This patient is experiencing chronic back pain. SOCIAL HISTORY: Nonsmoker. She is few years ago. She has one son who is . MEDICATIONS: Hydralazine 100 mg every 8 hours, Zithromax 250 mg intravenously daily, Ditropan 10 mg daily, aspirin 81 mg once a day, Eliquis 2.5 mg twice a day, Lipitor 20 mg once a day, Imdur 60 mg once a day, Norvasc 10 mg once a day, Toprol-XL 100 mg once a day, Rocephin 1 g intravenously daily, Protonix 20 mg p.o. daily. REVIEW OF SYSTEMS: No fever or chills. No nausea or vomiting. No loss of consciousness. PHYSICAL EXAMINATION GENERAL: The patient is a middle-aged female who does not appear to be in acute distress. VITAL SIGNS: Blood pressure 162/72, heart rate 108, respiration 22, temperature 99. HEENT: Pale conjunctivae. CHEST: Diminished breath sounds over the bases. HEART: S1, S2 regular and distant. ABDOMEN: Soft. EXTREMITIES: 2+ pitting edema. LABORATORY DATA: Hemoglobin and hematocrit 9.7 and 32.4, white count 13.6, platelet count 404,000. SMA-7: Sodium 140, potassium 5.3, chloride 100, CO2 of 31, glucose 196, BUN 42, creatinine 1.5. Troponin was 0.06 today, proBNP is 3470. Chest x-ray revealed cardiomegaly, near total opacification of the right lung. CT scan, suboptimal study due to the patient's body habitus and lack of IV and oral contrast. No evidence of acute pathology in the abdomen and pelvis. Hyperdense lesion in the right kidney may represent hemorrhagic cyst. Renal neoplasm cannot be completely excluded. Large ventral hernia containing part of the stomach, small and large bowel loops without evidence of bowel obstruction or incarceration. CT scan without contrast, suboptimal study due to the patient's motion. No evidence of acute intracranial hemorrhage, mass effects, or midline shift. Mild atrophy and [id number] chronic microvascular ischemic changes. EKG yesterday revealed sinus rhythm, possible left atrial enlargement. Admission EKG revealed sinus tachycardia of 117, consider anterior ischemia, which in my opinion was not evident at all. ASSESSMENT: 1. Status post fall. 2. Consider right lung pneumonia. 3. Coronary artery disease with history of circumflex artery stenting in the past. 4. History of deep venous thrombosis and pulmonary embolus, status post inferior vena cava filter placement in the past. RECOMMENDATIONS: Continue current hydralazine 100 mg every 8 hours, IV Zithromax at 250 mg daily, aspirin 81 mg once a day, resume Eliquis 2.5 mg twice a day. as there is no contraindication. Continue Imdur 60 mg once a day, IV Rocephin at 1 g daily, Toprol-XL at 100 mg once a day. Obtain chest CT scan without contrast. Gildardo Barry MD
[2018-02-11] MEDS ORDERED: Non Formulary Medication (Simvastatin [Zocor] 1 TAB) PO SCH (22:00)
[2018-02-11] MEDS ORDERED: Levalbuterol 0.63 MG/3 ML Inhal Soln UD IH STA (22:58)
[2018-02-12] MEDS ORDERED: Levalbuterol 0.63 MG/3 ML Inhal Soln UD IH STA ×2 (02:44→06:21)
[2018-02-12] MEDS: Pantoprazole 20 mg EC Tab PO SCH (06:01)
[2018-02-12 06:23] LABS: BASO # 0.02 K/mm3 (0.0-2.0); BASO % 0.2 % (0.0-3.0); EOS % 0.3 % (1.5-5.0); GRAN # 10.39 (1.4-6.5); LYMPH # 1.3 (1.2-3.4); LYMPH % 10.3 % (22.0-35.0); MEAN CORPUSCULAR HEMOGLOBIN 25.1 pg (25.0-35.0); MEAN CORPUSCULAR HGB CONC 30.3 g/dl (31.0-37.0); MEAN PLATELET VOLUME 10.5 fl (7.0-11.0); MONO # 0.6 (0.1-0.6); MONO % 5.2 % (1.0-6.0); RBC 3.58 10^6/uL (3.5-6.1); RED CELL DISTRIBUTION WIDTH 16.1 % (11.5-14.5); WHITE BLOOD COUNT 12.4 10^3/ul (4.5-11.0)
[2018-02-12 06:28] LABS: INR 1.28; PROTHROMBIN TIME 14.8 SECONDS (9.4-12.5)
[2018-02-12 07:09] LABS: ALB/GLOB RATIO 0.8 (1.1-1.8); ALBUMIN 3.3 g/dL (3.0-4.8); CALCIUM 9.1 mg/dL (8.4-10.5)
[2018-02-12] MEDS: Insulin Reg-LOW-Coverage SC SCH ×4 (08:27→22:29)
[2018-02-12] MEDS: Oxycodone/Acetaminophen 5/325 mg Tab PO PRN (08:28)
[2018-02-12] MEDS: Multivitamin Vitamin B Complex (Nephro-Vite) Tab PO SCH (08:29)
[2018-02-12] MEDS: Metoprolol Succinate 100 mg XL Tab PO SCH (08:29)
[2018-02-12] MEDS: cefTRIAXone 1 gm 1 GM/100 ML BAG IVPB SCH (09:38)
[2018-02-12] MEDS: Lidocaine 5% Patch TD SCH (09:38)
--- NOTE | 2018-02-12 10:52 | CP.PCM.PN ---
Subjective - Date & Time of Evaluation Date of Evaluation: 02/12/18 Time of Evaluation: 10:48 - Subjective Subjective: Nephrology Consultation Note: Assessment: critical Acute Kidney Injury (N17.9) likely hemodynamic due to BP fluctuations left adrenal adenoma, Rt renal hyperdense cyst Pneumonia ? fluid overload acute on chronic hypercapnic respi failure Diabetic chronic Kidney Disease (E11.22) Hypertensive Chronic Kidney Disease (I12.9) Chronic Kidney Disease (N18.3) Stage 3 with 3.6 gm proteinuria (R80.9) likely due to DM/HTN/Obesity Anemia Vit D def morbid obesity, CAD s/p stent, COPD/SUMMER, rectal ca s/p colostomy Plan No acute need for renal replacement therapy at this time. . Hypertension control with meds as ordered. Maintain hemodynamics stable. Avoid hypotension. Patient not on ACEI/ARB due to recent SHELBI and elevated K. Increased hydralazine 50 tid Monitor Input/Output, daily weights and renal function with basic metabolic panel started iron supplements, MVI and weekly Vit D continue with IV lasix 40 bid monitor ABG cardiology following. Adrenal adenoma work up with plasma renin/aldosterone, plasma metanephrine. outpt 1 mg dexa suppression test repeat renal sono in 6 months to assess her Rt renal cyst Dose meds/antibiotics for reduced GFR. Avoid fleets enema/magnesium based laxatives. Avoid nephrotoxins/NSAIDs/ iodinated contrast (unless needed emergently) Glycemic control Further work up/management as per primary team Thanks for allowing me to participate in care of your patient. Will follow patient with you. Please call if any Qs. had d/w team Dr Dae Dawn Office: [phone] Chief Complaint; fall and back pain Reason for consult: Acute Kidney Injury, CKD 3 HPI: Pt is a 62 F with hx of diabetes Mellitus (15 years), hypertension (years) , CKD 3 with baseline cr 1.2-1.3, morbid obesity, CAD s/p stent, COPD/SUMMER, rectal ca s/p colostomy presented with complaints of fall and low back pain. renal consult for CKD and SHELBI management. pt feels sleepy today. reports mild cough. no urine complaints. found to have lung infiltrates ? Pneumonia Denies OTC/herbal meds or NSAIDs No recent iodinated contrast exposure. No obvious episodes of low BP. In fact BP was high in 200+ range ROS: hx limited from pt as she was on BiPAP Physical Examination: General Appearance: Comfortable, co-operative . morbidly obese. on BiPAP. ill appearing Vitals reviewed and noted as below Head; Atraumatic, normocephalic ENT: on BiPAP EYES: Pupils are equal, round and reactive to light accommodation. Eye muscles and extraocular movement intact. Sclera is anicteric. Neck; supple no lymphadenopathy, no thyromegaly or bruit Lungs: Normal respiratory rate/effort. Breath sounds bilateral with crackles + Heart: Incr rate. s1s2 normal. No rub or gallop. Extremities: 2-3+ edema. No varicose veins Neurological: Patient is bit sleepy but oriented to person, place and time. No focal deficit. Strength bilateral appropriate and equal Skin: Warm and dry. Normal turgor. No rash. Palpitation: Normal elasticity for age Abdomen: Abdomen is soft. Bowel sounds +. There is no abdominal tenderness, no guarding/rigidity no organomegaly. has colostomy and ventral hernia Psych: normal insight and normal affect/mood MSK: no joint tenderness or swelling. Digits and nails normal, no deformity : kidney or bladder not palpable Labs/imaging reviewed. Past medical history, past surgical history, family history, social history, allergy reviewed and noted as below Family hx: no hx of CKD. Rest non-contributory PET CT 04/2017: neg CT abdomen: left adrenal adenoma 1.9 cm Rt kidney 2.6 cm hyperdense cyst UA 100 protein, neg for blood Objective - Vital Signs/Intake and Output Vital Signs (last 24 hours): Temp Pulse Resp BP Pulse Ox 99.6 F 107 H 20 179/84 H 91 L 02/12/18 06:00 02/12/18 10:09 02/12/18 06:00 02/12/18 10:08 02/12/18 06:00 Intake and Output: 02/12/18 02/12/18 06:59 18:59 Intake Total 350 960 Output Total 2700 Balance 350 -1740 - Medications Medications: Current Medications Amlodipine Besylate (Norvasc) 10 mg PO DAILY REPLACED BY [facility] Last Admin: 02/12/18 09:40 Dose: 10 mg Apixaban (Eliquis) 2.5 mg PO BID REPLACED BY [facility] PRN Reason: Protocol Last Admin: 02/12/18 09:40 Dose: 2.5 mg Aspirin (Ecotrin) 81 mg PO DAILY REPLACED BY [facility] Last Admin: 02/12/18 09:39 Dose: 81 mg Atorvastatin Calcium (Lipitor) 20 mg PO HS REPLACED BY [facility] Last Admin: 02/11/18 21:39 Dose: 20 mg Ergocalciferol (Drisdol 50,000 Intl Units Cap) 1 cap PO Q7D REPLACED BY [facility] Last Admin: 02/11/18 15:18 Dose: 1 cap Ferrous Gluconate (Fergon) 324 mg PO TID REPLACED BY [facility] Last Admin: 02/12/18 09:39 Dose: 324 mg Furosemide (Lasix) 40 mg IVP BID REPLACED BY [facility] Stop: 02/15/18 18:01 Last Admin: 02/12/18 09:40 Dose: 40 mg Hydralazine HCl (Apresoline) 50 mg PO TID REPLACED BY [facility] Last Admin: 02/12/18 10:16 Dose: Not Given Azithromycin 250 mg/ Sodium (Chloride) 250 mls @ 167 mls/hr IVPB DAILY REPLACED BY [facility] PRN Reason: Protocol Stop: 02/15/18 23:59 Last Admin: 02/11/18 13:12 Dose: 167 mls/hr Insulin Human Regular (Humulin R Low) 0 units SC ACHS JR PRN Reason: Protocol Last Admin: 02/12/18 08:27 Dose: 2 unit Isosorbide Mononitrate (Imdur) 60 mg PO DAILY REPLACED BY [facility] Last Admin: 02/12/18 09:39 Dose: 60 mg Lidocaine (Lidoderm) 1 ea TD DAILY REPLACED BY [facility] Last Admin: 02/12/18 09:38 Dose: 1 ea Metoprolol Succinate (Toprol Xl) 100 mg PO BRK REPLACED BY [facility] Last Admin: 02/12/18 08:29 Dose: 100 mg Oxybutynin Chloride (Ditropan Tab) 10 mg PO DAILY REPLACED BY [facility] Last Admin: 02/12/18 09:39 Dose: 10 mg Oxycodone/Acetaminophen (Percocet 5/325 Mg Tab) 1 tab PO Q6H PRN PRN Reason: Pain, severe (8-10) Stop: 02/14/18 03:46 Last Admin: 02/12/18 08:28 Dose: 1 tab Pantoprazole Sodium (Protonix Ec Tab) 20 mg PO 0600 REPLACED BY [facility] Last Admin: 02/12/18 06:01 Dose: 20 mg Pregabalin (Lyrica) 200 mg PO DAILY REPLACED BY [facility] Last Admin: 02/12/18 09:39 Dose: 200 mg Primidone (Mysoline) 50 mg PO DAILY REPLACED BY [facility] Last Admin: 02/12/18 09:39 Dose: 50 mg Vitamin B Complex/Vit C/Folic Acid (Nephro-Holland) 1 tab PO 0800 REPLACED BY [facility] Last Admin: 02/12/18 08:29 Dose: 1 tab - Labs Labs: 02/12/18 06:00 02/12/18 06:00 PT 14.8 SECONDS (9.4-12.5) H 02/12/18 06:00 INR 1.28 02/12/18 06:00
[2018-02-12] MEDS: Azithromycin 250 MG in Sodium Chloride 0.9% 250 ML IVPB SCH (11:22)
[2018-02-12 11:43] LABS: ARTERIAL BLOOD GAS HCO3 35.2 mmol/L (21-28); ARTERIAL BLOOD GAS HEMOGLOBIN 8.2 g/dL (11.7-17.4); ARTERIAL BLOOD GAS O2 CAPACITY 11.4 mL/dl (16-24); ARTERIAL BLOOD GAS O2 CONTENT 11.1 ML/dl (15-23); ARTERIAL BLOOD GAS O2 SAT 97.4 % (95-98); ARTERIAL BLOOD GAS PCO2 53 mm/Hg (35-45); ARTERIAL BLOOD GAS PH 7.43 (7.35-7.45); ARTERIAL BLOOD GAS TCO2 36.8 mmol.L (22-28)
--- NOTE | 2018-02-12 12:58 | CP.PCM.PN ---
<Zackery Naqvi - Last Filed: 02/12/18 18:52> Subjective - Date & Time of Evaluation Date of Evaluation: 02/12/18 Time of Evaluation: 05:30 - Subjective Subjective: Zackery Naqvi DO PGY-1, Internal Medicine Resident. Hospitalist Progress Note Patient seen and examined at bedside. Patient is in moderate respiratory distress with shallow rapid breathing. Did not sleep well because of difficulty breathing. Her back pain is getting worse because of lack of ambulation since admission. No acute events overnight. Patient denied CP, palpitations, headache , fever. ROS is otherwise negative Objective - Vital Signs/Intake and Output Vital Signs (last 24 hours): Temp Pulse Resp BP Pulse Ox 100 F H 100 H 20 124/67 91 L 02/12/18 11:50 02/12/18 11:50 02/12/18 11:50 02/12/18 11:50 02/12/18 06:00 Intake and Output: 02/12/18 02/12/18 06:59 18:59 Intake Total 350 960 Output Total 2700 Balance 350 -1740 - Medications Medications: Current Medications Amlodipine Besylate (Norvasc) 10 mg PO DAILY [facility] Last Admin: 02/12/18 09:40 Dose: 10 mg Apixaban (Eliquis) 2.5 mg PO BID [facility] PRN Reason: Protocol Last Admin: 02/12/18 09:40 Dose: 2.5 mg Aspirin (Ecotrin) 81 mg PO DAILY [facility] Last Admin: 02/12/18 09:39 Dose: 81 mg Atorvastatin Calcium (Lipitor) 20 mg PO HS [facility] Last Admin: 02/11/18 21:39 Dose: 20 mg Ergocalciferol (Drisdol 50,000 Intl Units Cap) 1 cap PO Q7D [facility] Last Admin: 02/11/18 15:18 Dose: 1 cap Ferrous Gluconate (Fergon) 324 mg PO TID [facility] Last Admin: 02/12/18 09:39 Dose: 324 mg Furosemide (Lasix) 40 mg IVP BID [facility] Stop: 02/15/18 18:01 Last Admin: 02/12/18 09:40 Dose: 40 mg Hydralazine HCl (Apresoline) 50 mg PO TID [facility] Last Admin: 02/12/18 10:16 Dose: Not Given Azithromycin 250 mg/ Sodium (Chloride) 250 mls @ 167 mls/hr IVPB DAILY JR PRN Reason: Protocol Stop: 02/15/18 23:59 Last Admin: 02/12/18 11:22 Dose: 167 mls/hr Insulin Human Regular (Humulin R Low) 0 units SC ACHS JR PRN Reason: Protocol Last Admin: 02/12/18 12:22 Dose: 2 unit Isosorbide Mononitrate (Imdur) 60 mg PO DAILY [facility] Last Admin: 02/12/18 09:39 Dose: 60 mg Lidocaine (Lidoderm) 1 ea TD DAILY [facility] Last Admin: 02/12/18 09:38 Dose: 1 ea Metoprolol Succinate (Toprol Xl) 100 mg PO BRK [facility] Last Admin: 02/12/18 08:29 Dose: 100 mg Oxybutynin Chloride (Ditropan Tab) 10 mg PO DAILY [facility] Last Admin: 02/12/18 09:39 Dose: 10 mg Oxycodone/Acetaminophen (Percocet 5/325 Mg Tab) 1 tab PO Q6H PRN PRN Reason: Pain, severe (8-10) Stop: 02/14/18 03:46 Last Admin: 02/12/18 08:28 Dose: 1 tab Pantoprazole Sodium (Protonix Ec Tab) 20 mg PO 0600 [facility] Last Admin: 02/12/18 06:01 Dose: 20 mg Pregabalin (Lyrica) 200 mg PO DAILY [facility] Last Admin: 02/12/18 09:39 Dose: 200 mg Primidone (Mysoline) 50 mg PO DAILY [facility] Last Admin: 02/12/18 09:39 Dose: 50 mg Vitamin B Complex/Vit C/Folic Acid (Nephro-Holland) 1 tab PO 0800 [facility] Last Admin: 02/12/18 08:29 Dose: 1 tab - Labs Labs: 02/12/18 06:00 02/12/18 06:00 PT 14.8 SECONDS (9.4-12.5) H 02/12/18 06:00 INR 1.28 02/12/18 06:00 - Constitutional Appears: In Acute Distress - Head Exam Head Exam: ATRAUMATIC, NORMOCEPHALIC - Eye Exam Eye Exam: EOMI, Normal appearance, PERRL Pupil Exam: NORMAL ACCOMODATION, PERRL - ENT Exam ENT Exam: Mucous Membranes Moist, Normal Exam - Neck Exam Neck Exam: Full ROM, Normal Inspection. absent: Lymphadenopathy - Respiratory Exam Respiratory Exam: Decreased Breath Sounds, Respiratory Distress - Cardiovascular Exam Cardiovascular Exam: REGULAR RHYTHM, +S1, +S2. absent: Murmur - GI/Abdominal Exam GI & Abdominal Exam: Soft, Normal Bowel Sounds. absent: Tenderness - Extremities Exam Extremities Exam: Pedal Edema. absent: Calf Tenderness - Back Exam Back Exam: muscle spasm, paraspinal tenderness. absent: CVA tenderness (L), CVA tenderness (R) - Neurological Exam Neurological Exam: Alert, Awake, CN II-XII Intact, Oriented x3 - Psychiatric Exam Psychiatric exam: Normal Affect, Normal Mood - Skin Skin Exam: Dry, Intact, Normal Color, Warm Assessment and Plan - Assessment and Plan (Free Text) Assessment: 62 y/o female with PMH of HTN, DM2, HLD CAD with stents palced, COPD, PE/ DVT, renal failure, chronic renal insufficiency, anemia, colorectal ca s/p resection , colostomy x 2, morbid obesity, obstructive sleep apnea, chronic back pain admitted for intractable back pain s/p fall at home. Found to have right sided pneumonia, SHELBI on CKD, acute on chronic respiratory failure Plan: Acute on chronic respiratory failure -Likely due to morbid obesity with immobilization and COPD complicated with pneumonia -ABG showed hypoxia, hypercapnia -Placed on CPAP. ABG repeated that showed improvement -Patient received Xopenex. symtoms improved -CPAP QS ordered. follow ABG in AM -CT chest w/o contrast Pneumonia -CXR: right lung infiltrate -continue azithromycin and rocephin -O2 NC prn Adrenal nodule on abdominal CT -Nephrology consulted Dr Dawn with following recs -plasma renin/aldosterone, plasma metanephrine ordered -dexamethasone 1 mg suppression test (outpatient) -repeat renal sono in 6 months to assess renal cyst. SHELBI on CKD stage 3 - BUN/Cr is 48/1.8 at admission - Microalbumin/Cr >1700 - continue with IV lasix 40 bid - Increased hydralazine 50 tid - hold ACEI/ARB due to recent SHELBI - started iron supplements, MVI and weekly Vit D - avoid nephrotoxins/NSAIDs/ iodinated contrast Chronic back pain -Likely 2/2 morbid obesity. BMI>55. immobilization -Medical management with oxycontin and dilaudid by PMD, multiple steroid injections with recurrent symptoms -Patient initially refused L/S spine MRI but agreed today. r/o hematoma being on anticoagulation -Lidoderm patch to back -Percocet 5/325 mg PO Q6H PRN pain -Morphine 2 mg q4h S/P fall -Patient felt dizzy after taking 2 dilaudid doses by mistake. no injuries reported -Head CT shows no acute intracranial hge -physical therapy evaluation and treatment ordered Hyperlipidemia - continue home atorvastatin - lipid panel ordered UTI - no leukocytosis - small leukocyte esterase, urine WBCs 15-20 - urine culture, blood culture x2 -Essential Tremors - continue pramidone as per PMD - f/u TSH, t4, vitamin d levels Hypertension - continue home meds amlodipine, hydralazine, metoprolol - patient has multiple episodes of hypertensive urgencies controlled with hydralazine, lasix DM2 -accucheck -Hgb A1c ordered -ISS CHF -continue metoprolol, eliques -cardiology on board. no further workup -Echo (08/2017) showed LVEF of 53.0%. Moderate concentric LVH GI ppx:protonix heart healthy diet Case reviewed and plan discussed with attending physician Dr. Andre <Susanna Andre - Last Filed: 02/13/18 06:55> Objective - Vital Signs/Intake and Output Vital Signs (last 24 hours): Temp Pulse Resp BP Pulse Ox 97.5 F L 90 20 123/75 98 02/13/18 00:01 02/13/18 02:00 02/13/18 00:01 02/13/18 00:01 02/13/18 00:01 Intake and Output: 02/12/18 02/13/18 18:59 06:59 Intake Total 1680 120 Output Total 2700 450 Balance -1020 -330 - Medications Medications: Current Medications Acetylcysteine (Acetylcysteine 20%) 3 ml INH [id number] [facility] Amlodipine Besylate (Norvasc) 10 mg PO DAILY [facility] Last Admin: 02/12/18 09:40 Dose: 10 mg Apixaban (Eliquis) 2.5 mg PO BID [facility] PRN Reason: Protocol Last Admin: 02/12/18 18:01 Dose: 2.5 mg Arformoterol Tartrate (Brovana) 15 mcg IH [id number] [facility] Aspirin (Ecotrin) 81 mg PO DAILY [facility] Last Admin: 02/12/18 09:39 Dose: 81 mg Atorvastatin Calcium (Lipitor) 20 mg PO HS [facility] Last Admin: 02/12/18 21:34 Dose: 20 mg Budesonide (Pulmicort Respules) 0.5 mg IH [id number] Ergocalciferol (Drisdol 50,000 Intl Units Cap) 1 cap PO Q7D [facility] Last Admin: 02/11/18 15:18 Dose: 1 cap Ferrous Gluconate (Fergon) 324 mg PO TID [facility] Last Admin: 02/12/18 21:34 Dose: 324 mg Furosemide (Lasix) 40 mg IVP BID [facility] Stop: 02/15/18 18:01 Last Admin: 02/12/18 18:00 Dose: 40 mg Hydralazine HCl (Apresoline) 50 mg PO TID [facility] Last Admin: 02/12/18 21:34 Dose: 50 mg Azithromycin 250 mg/ Sodium (Chloride) 250 mls @ 167 mls/hr IVPB DAILY [facility] PRN Reason: Protocol Stop: 02/15/18 23:59 Last Admin: 02/12/18 11:22 Dose: 167 mls/hr Ceftriaxone Sodium (Rocephin 1 Gram Ivpb) 1 gm in 100 mls @ 100 mls/hr IVPB DAILY [facility] PRN Reason: Protocol Stop: 02/16/18 23:59 Insulin Human Regular (Humulin R Low) 0 units SC ACHS [facility] PRN Reason: Protocol Last Admin: 02/12/18 22:29 Dose: Not Given Isosorbide Mononitrate (Imdur) 60 mg PO DAILY [facility] Last Admin: 02/12/18 09:39 Dose: 60 mg Lidocaine (Lidoderm) 1 ea TD DAILY [facility] Last Admin: 02/12/18 09:38 Dose: 1 ea Metoprolol Succinate (Toprol Xl) 100 mg PO BRK [facility] Last Admin: 02/12/18 08:29 Dose: 100 mg Oxybutynin Chloride (Ditropan Tab) 10 mg PO DAILY [facility] Last Admin: 02/12/18 09:39 Dose: 10 mg Oxycodone/Acetaminophen (Percocet 5/325 Mg Tab) 1 tab PO Q6H PRN PRN Reason: Pain, severe (8-10) Stop: 02/14/18 03:46 Last Admin: 09/11/18 08:28 Dose: 1 tab Pantoprazole Sodium (Protonix Ec Tab) 20 mg PO 0600 [facility] Last Admin: 02/13/18 05:42 Dose: 20 mg Pregabalin (Lyrica) 200 mg PO DAILY [facility] Last Admin: 02/12/18 09:39 Dose: 200 mg Primidone (Mysoline) 50 mg PO DAILY [facility] Last Admin: 02/12/18 09:39 Dose: 50 mg Vitamin B Complex/Vit C/Folic Acid (Nephro-Holland) 1 tab PO 0800 [facility] Last Admin: 02/12/18 08:29 Dose: 1 tab - Labs Labs: 02/13/18 05:48 PT 14.8 SECONDS (9.4-12.5) H 02/12/18 06:00 INR 1.28 02/12/18 06:00 Attending/Attestation - Attestation I have personally seen and examined this patient.: Yes I have fully participated in the care of the patient.: Yes I have reviewed all pertinent clinical information, including history, physical exam and plan: Yes Notes (Text): 02/12/18 62 year old female with past medical history of hypertension, diabetes, CAD, COPD, DVT/PE on eliquis, CKD, colorectal cancer s/p resection and colostomy, obesity and chronic back pain who presented s/p fall and intractable back pain. Found to have acute on chronic respiratoy failure secondary to right sided pneumonia and CHF. Continue with iv lasix and iv antibiotics. CT chest is pending. Cardiology is following. Likely SUMMER/COPD component as well. Continue with Bipap HS. Pulmonary evaluation is requested. She was also found to have to acute on chronic renal failure, adrenal nodule and uncontrolled hypertension for which nephrology is following. Plasma renin/ aldosterone and metanephrin is ordered. Outpatient dexamathasone suppression test and repeat sonogram in 6 months is suggested. Renal function is improving. Hydralazine was increased for hypertension. Patient is on percocet prn for back pain. Xray spines were refused. Patient refused MRI spine yesterday. Unable to complete today secondary to weight. Recommended outpatient open MRI. PT evaluation was appreciated; recommended SAR. Susanna Andre MD Hospitalist.
--- NOTE | 2018-02-12 14:51 | PN ---
DATE: 02/12/2018 SUBJECTIVE: The patient is currently short of breath, on BiPAP. She denies retrosternal chest pain. PHYSICAL EXAMINATION: VITAL SIGNS: Blood pressure 124/67, heart rate 104, temperature 100, respirations 20. HEENT: Pale conjunctivae. CHEST: Bilateral rhonchi. HEART: S1, S2 regular. ABDOMEN: Soft. EXTREMITIES: 1+ pitting edema. LABORATORY DATA: SMA-7: Sodium 138, potassium 4.5, chloride 96, CO2 36, glucose 209, BUN 38, creatinine 1.6. Today's hemoglobin and hematocrit 9 and 29.7. White count 12.4, platelet count 373,000. Yesterday chest x-ray, new extensive infiltrate involving the right lung. Chest CT scan was ordered, but still pending. ASSESSMENT: 1. Right entire lung pneumonia. 2. History of coronary artery disease status post percutaneous coronary intervention to circumflex artery a few years ago. 3. Status post fall. 4. History of deep venous thrombosis and pulmonary embolus, status post inferior vena cava filter in the past. 5. History of rectal carcinoma, status post local resection and colostomy. RECOMMENDATIONS: We will continue IV Zithromax at 250 mg daily; continue aspirin 81 mg once a day; Eliquis 2.5 mg twice a day; Imdur 60 mg once a day; Lasix 40 mg intravenously twice a day, Lipitor 20 mg once a day; Toprol-XL 100 mg once a day. Chest CT scan is pending and I requested x-ray of the lumbosacral spine. Gildardo Barry MD
--- NOTE | 2018-02-12 15:37 | RAD ---
Date of service: 02/12/2018 HISTORY: fall COMPARISON: No prior. FINDINGS: BONES: Alignment maintained. No fracture. DISC SPACES: Multilevel disc degeneration with right-sided osteophytes SOFT TISSUES: Normal. OTHER FINDINGS: None. IMPRESSION: No acute compression fractures
--- NOTE | 2018-02-12 15:38 | RAD ---
Date of service: 02/12/2018 PROCEDURE: Radiographs of the Lumbar Spine. HISTORY: fall COMPARISON: No prior. FINDINGS: BONES: Normal alignment. No listhesis. No fracture. DISC SPACES: Unremarkable. OTHER FINDINGS: None. IMPRESSION: Unremarkable radiographs of the lumbar spine.
--- NOTE | 2018-02-13 04:28 | CON ---
DATE: 02/12/2018 PULMONARY CONSULTATION REFERRING PHYSICIAN: Dr. Andre REASON FOR CONSULTATION: Respiratory failure, on noninvasive ventilation, has a pneumonia, chronic lung disease, known sleep apnea syndrome. HISTORY OF PRESENT ILLNESS: This is a 62-year-old female known to me from previous admission, noncompliant with the followup, multiple medical issues including diabetes, hypertension, renal failure, morbid obesity, history of coronary artery disease, coronary stent, pulmonary hypertension, chronic lung disease, sleep apnea syndrome, history of rectal carcinoma, requiring colostomy, comes in with shortness of breath and cough, found to have a multilobar pneumonia. Has a respiratory failure, requiring noninvasive ventilation. Seen by Infectious Diseases and Nephrology. No hemoptysis, no hematemesis, no hematuria, no diarrhea. Does have a leg swelling. PAST MEDICAL HISTORY: Chronic lung disease, sleep apnea syndrome, obesity hypoventilation syndrome, coronary artery disease, hypertension, renal failure, diabetes, morbid obesity, noncompliant with followup. ALLERGIES: NONE KNOWN. SOCIAL HISTORY: Nonsmoker, nondrinker. FAMILY HISTORY: No significant cardiopulmonary disease reported. MEDICATIONS: She is on hydralazine 50 mg three times a day, Zithromax 250 mg daily, Ditropan 10 mg daily, vitamin D 50,000 units every 7 days, Ecotrin 81 mg daily, Eliquis 2.5 mg twice a day, ferrous gluconate 325 mg three times a day, insulin coverage, Imdur 60 mg daily, Lasix 40 mg twice a day, lidocaine patch to affected area, Lipitor 20 mg at bedtime, Lyrica 200 mg daily, 50 mg daily, vitamin B complex daily, Norvasc 10 mg daily Percocet 5/325 1 tablet every 6 hours p.r.n., Protonix 20 mg daily, Rocephin 1 g daily, Toprol XL 100 mg daily. REVIEW OF SYSTEMS: No headache, no rhinitis. Has a cough, shortness of breath. No chest pain. No abdominal pain. No dysuria. Colostomy working well. Has a leg swelling. PHYSICAL EXAMINATION: GENERAL: Lethargy, on noninvasive ventilation. VITAL SIGNS: Temperature is 98, heart rate is 81, respiratory rate is 18, blood pressure 145/65, pulse ox 96% on BiPAP with 50% oxygen. HEENT: Moist mucous membrane. No facial tenderness. Small oral cavity. Short thick neck. LUNGS: Have a scattered rhonchi and expiratory wheezing. HEART: S1 and S2. ABDOMEN: Soft, nontender. Colostomy bag working okay. EXTREMITIES: Edema. NEUROLOGIC: Lethargic, arousable. LABORATORY DATA: Shows hemoglobin 9, hematocrit 29.7, WBC 12.4, platelet is 373. INR is 1.28. PTT 14. Blood gases show pH 7.43, pCO2 of 53, O2 93, this is on BiPAP with 50% oxygen. Sodium 138, potassium 4.5, chloride 96, bicarbonate 36, BUN 38, creatinine 1.6, glucose 209, calcium 9.1, AST 39, ALT 30, alk phos is 135. Albumin is 3.3. Microbiology; blood culture, urine culture, there is so far no growth. She had a chest x-ray done on admission, shows congestion and cardiomegaly with a chest x-ray which was done yesterday morning shows a new extensive infiltrate in the right lung. IMPRESSION AND PLAN: Respiratory failure with multilobar pneumonia, morbid obesity, chronic obstructive lung disease, hypoventilation syndrome, sleep apnea syndrome, coronary artery disease with cardiomyopathy, history of pulmonary embolism, deep venous thrombosis, renal insufficiency, anemia, history of colorectal carcinoma, requiring resection and colostomy bag. Agree with the BiPAP use. May use BiPAP while sleeping. May switch to high-flow oxygen during the daytime and while sleeping. Keep head elevated at 45 degrees. Continue antibiotics. We will get procalcitonin, ProBNP for the morning. Anticoagulation. Gastric prophylaxis. Pressure ulcer precaution. CT scan chest has been ordered. We will follow. Thank you and we will follow with you. Pamela Ayala MD
[2018-02-13] MEDS: Pantoprazole 20 mg EC Tab PO SCH (05:42)
[2018-02-13 05:51] LABS: ARTERIAL BLOOD GAS HEMOGLOBIN 9.9 g/dL (11.7-17.4); ARTERIAL BLOOD GAS O2 CAPACITY 13.6 mL/dl (16-24); ARTERIAL BLOOD GAS O2 CONTENT 12.9 ML/dl (15-23); ARTERIAL BLOOD GAS PCO2 68 mm/Hg (35-45); ARTERIAL BLOOD GAS PH 7.32 (7.35-7.45); ARTERIAL BLOOD GAS TCO2 37.1 mmol.L (22-28)
[2018-02-13 06:25] LABS: BASO # 0.03 K/mm3 (0.0-2.0); BASO % 0.4 % (0.0-3.0); EOS # 0.2 (0.0-0.7); EOS % 2.5 % (1.5-5.0); GRAN # 5.69 (1.4-6.5); GRAN % 68.7 % (50.0-68.0); HEMOGLOBIN 7.9 g/dL (12.0-16.0); LYMPH # 1.9 (1.2-3.4); LYMPH % 22.5 % (22.0-35.0); MEAN CELL VOLUME 83.9 fl (80.0-105.0); MEAN CORPUSCULAR HEMOGLOBIN 24.5 pg (25.0-35.0); MEAN CORPUSCULAR HGB CONC 29.3 g/dl (31.0-37.0); MEAN PLATELET VOLUME 10.5 fl (7.0-11.0); MONO # 0.5 (0.1-0.6); MONO % 5.9 % (1.0-6.0); RBC 3.22 10^6/uL (3.5-6.1); RED CELL DISTRIBUTION WIDTH 16.3 % (11.5-14.5); WHITE BLOOD COUNT 8.3 10^3/ul (4.5-11.0)
[2018-02-13 06:54] LABS: ALB/GLOB RATIO 0.9 (1.1-1.8); CALCIUM 8.5 mg/dL (8.4-10.5)
--- NOTE | 2018-02-13 07:18 | CP.PCM.PN ---
<Zackery Naqvi - Last Filed: 02/13/18 17:39> Subjective - Date & Time of Evaluation Date of Evaluation: 02/13/18 Time of Evaluation: 05:35 - Subjective Subjective: Zackery Naqvi DO PGY-1, Internal Medicine Resident. Hospitalist Progress Note Patient seen and examined at bedside. Patient is on BiPAP with improved breathing pattern and no respiratory distress . Slept well. Her back pain is controlled. She c/o bilateral hand and foot numbness. No acute events overnight. Patient denied CP, palpitations, headache, fever. ROS is otherwise negative Objective - Vital Signs/Intake and Output Vital Signs (last 24 hours): Temp Pulse Resp BP Pulse Ox 98 F 74 20 165/60 H 96 02/13/18 06:00 02/13/18 06:00 02/13/18 06:00 02/13/18 06:00 02/13/18 06:00 Intake and Output: 02/13/18 02/13/18 06:59 18:59 Intake Total 120 Output Total 450 Balance -330 - Medications Medications: Current Medications Acetylcysteine (Acetylcysteine 20%) 3 ml INH [id number] [facility] Amlodipine Besylate (Norvasc) 10 mg PO DAILY [facility] Last Admin: 02/12/18 09:40 Dose: 10 mg Apixaban (Eliquis) 2.5 mg PO BID [facility] PRN Reason: Protocol Last Admin: 02/12/18 18:01 Dose: 2.5 mg Arformoterol Tartrate (Brovana) 15 mcg IH [id number] [facility] Aspirin (Ecotrin) 81 mg PO DAILY [facility] Last Admin: 02/12/18 09:39 Dose: 81 mg Atorvastatin Calcium (Lipitor) 20 mg PO HS [facility] Last Admin: 02/12/18 21:34 Dose: 20 mg Budesonide (Pulmicort Respules) 0.5 mg IH [id number] [facility] Ergocalciferol (Drisdol 50,000 Intl Units Cap) 1 cap PO Q7D [facility] Last Admin: 02/11/18 15:18 Dose: 1 cap Ferrous Gluconate (Fergon) 324 mg PO TID [facility] Last Admin: 02/12/18 21:34 Dose: 324 mg Furosemide (Lasix) 40 mg IVP BID [facility] Stop: 02/15/18 18:01 Last Admin: 02/12/18 18:00 Dose: 40 mg Hydralazine HCl (Apresoline) 50 mg PO TID [facility] Last Admin: 02/12/18 21:34 Dose: 50 mg Azithromycin 250 mg/ Sodium (Chloride) 250 mls @ 167 mls/hr IVPB DAILY JR PRN Reason: Protocol Stop: 02/15/18 23:59 Last Admin: 02/12/18 11:22 Dose: 167 mls/hr Ceftriaxone Sodium (Rocephin 1 Gram Ivpb) 1 gm in 100 mls @ 100 mls/hr IVPB DAILY JR PRN Reason: Protocol Stop: 02/16/18 23:59 Insulin Human Regular (Humulin R Low) 0 units SC ACHS JR PRN Reason: Protocol Last Admin: 02/12/18 22:29 Dose: Not Given Isosorbide Mononitrate (Imdur) 60 mg PO DAILY [facility] Last Admin: 02/12/18 09:39 Dose: 60 mg Lidocaine (Lidoderm) 1 ea TD DAILY [facility] Last Admin: 02/12/18 09:38 Dose: 1 ea Metoprolol Succinate (Toprol Xl) 100 mg PO BRK [facility] Last Admin: 02/12/18 08:29 Dose: 100 mg Oxybutynin Chloride (Ditropan Tab) 10 mg PO DAILY [facility] Last Admin: 02/12/18 09:39 Dose: 10 mg Oxycodone/Acetaminophen (Percocet 5/325 Mg Tab) 1 tab PO Q6H PRN PRN Reason: Pain, severe (8-10) Stop: 02/14/18 03:46 Last Admin: 02/12/18 08:28 Dose: 1 tab Pantoprazole Sodium (Protonix Ec Tab) 20 mg PO 0600 [facility] Last Admin: 02/13/18 05:42 Dose: 20 mg Pregabalin (Lyrica) 200 mg PO DAILY [facility] Last Admin: 02/12/18 09:39 Dose: 200 mg Primidone (Mysoline) 50 mg PO DAILY [facility] Last Admin: 02/12/18 09:39 Dose: 50 mg Vitamin B Complex/Vit C/Folic Acid (Nephro-Holland) 1 tab PO 0800 [facility] Last Admin: 02/12/18 08:29 Dose: 1 tab - Labs Labs: 02/13/18 05:48 02/13/18 05:48 PT 14.8 SECONDS (9.4-12.5) H 02/12/18 06:00 INR 1.28 02/12/18 06:00 - Additional Findings Additional findings: - Constitutional Appears: In Acute Distress - Head Exam Head Exam: ATRAUMATIC, NORMOCEPHALIC - Eye Exam Eye Exam: EOMI, Normal appearance, PERRL Pupil Exam: NORMAL ACCOMODATION, PERRL - ENT Exam ENT Exam: Mucous Membranes Moist, Normal Exam - Neck Exam Neck Exam: Full ROM, Normal Inspection. absent: Lymphadenopathy - Respiratory Exam Respiratory Exam: improving Breath Sounds, No Respiratory Distress - Cardiovascular Exam Cardiovascular Exam: REGULAR RHYTHM, +S1, +S2. absent: Murmur - GI/Abdominal Exam GI & Abdominal Exam: Soft, Normal Bowel Sounds. absent: Tenderness - Extremities Exam Extremities Exam: Pedal Edema. absent: Calf Tenderness - Back Exam Back Exam: muscle spasm, paraspinal tenderness. absent: CVA tenderness (L), CVA tenderness (R) - Neurological Exam Neurological Exam: Alert, Awake, CN II-XII Intact, Oriented x3 - Psychiatric Exam Psychiatric exam: Normal Affect, Normal Mood - Skin Skin Exam: Dry, Intact, Normal Color, Warm Assessment and Plan - Assessment and Plan (Free Text) Assessment: 62 y/o female with PMH of HTN, DM2, HLD CAD with stents palced, COPD, PE/ DVT, renal failure, chronic renal insufficiency, anemia, colorectal ca s/p resection , colostomy x 2, morbid obesity, obstructive sleep apnea, chronic back pain admitted for intractable back pain s/p fall at home. Found to have right sided pneumonia, SHELBI on CKD, acute on chronic respiratory failure. On BiPAP during night Plan: Acute on chronic respiratory failure -Breathing patterned improved today -On BiPAP during sleep and high-flow during daytime as per pulmonology recs -ABG in AM showed high CO2 and bicarb -Pulmonology consulted Dr Ayala Anemia -normochromic normocytic. likely 2/2 chronic disease -H/H dropped from 29.7 to 7.9/ in one day -PRBCs transfusion. 1 unit ordered. follow H/H in AM -patient is asymptomatic -Iron 26, TIBC 192, 14% saturation -FOBT positive -GI consulted Dr Benitez -h/o colon cancer s/p patial colectomy with colostomy (2013) Pneumonia -CXR showed right multilobar pneumonia -CT chest: multifocal infiltrate right>left -continue Azithromycin and rocephin -Blood culture negative to date -procalcitonin 1.59 SHELBI on CKD stage 3 - BUN/Cr is 48/1.8 at admission - Microalbumin/Cr >1700 - continue with IV lasix 40 bid - Increased hydralazine 50 tid - hold ACEI/ARB due to recent SHELBI - started iron supplements, MVI and weekly Vit D - avoid nephrotoxins/NSAIDs/ iodinated contrast - monitor I/O - bladder scan Chronic back pain -Likely 2/2 morbid obesity. BMI>55. immobilization -Medical management with oxycontin and dilaudid by PMD, multiple steroid injections with recurrent symptoms -L/S spine MRI ordered to r/o hematoma being on anticoagulation. Patient couldn' t fit in MRI machine. will be done outpatient -Lidoderm patch to back -Percocet 5/325 mg PO Q6H PRN pain -Thoracic/Lumbar XR: no compression fracture S/P fall -Patient felt dizzy after taking 2 dilaudid doses by mistake. no injuries reported -Head CT shows no acute intracranial hge -physical therapy evaluation and treatment ordered Hyperlipidemia - continue home atorvastatin - lipid panel wnl UTI - no leukocytosis - small leukocyte esterase, urine WBCs 15-20 - urine culture, blood culture x2 -Essential Tremors - continue pramidone as per PMD Hypertension - continue home meds amlodipine, hydralazine, metoprolol - patient has multiple episodes of hypertensive urgencies controlled with hydralazine, lasix DM2 -accucheck >200 -Hgb A1c 7.4 -Levimir 20u q12hr started -ISS CHF -continue metoprolol, eliques -cardiology on board. no further workup -Echo (08/2017) showed LVEF of 53.0%. Moderate concentric LVH -BNP 6280 today -started on zaroxolyn 2.5mg BID as per nephro GI ppx:protonix heart healthy diet Head elevation Case discussed and plan reviewed with attending physician Dr. Andre <Susanna Andre - Last Filed: 02/13/18 19:06> Objective - Vital Signs/Intake and Output Vital Signs (last 24 hours): Temp Pulse Resp BP Pulse Ox 98.3 F 85 20 113/86 96 02/13/18 17:47 02/13/18 18:00 02/13/18 17:47 02/13/18 17:47 02/13/18 06:00 Intake and Output: 02/13/18 02/14/18 18:59 06:59 Intake Total 660 Output Total 1400 Balance -740 - Medications Medications: Current Medications Acetylcysteine (Acetylcysteine 20%) 3 ml INH [id number] [facility] Last Admin: 02/13/18 07:33 Dose: 3 ml Amlodipine Besylate (Norvasc) 10 mg PO DAILY [facility] Last Admin: 02/13/18 09:25 Dose: 10 mg Apixaban (Eliquis) 2.5 mg PO BID JR PRN Reason: Protocol Last Admin: 02/13/18 17:28 Dose: 2.5 mg Arformoterol Tartrate (Brovana) 15 mcg IH [id number] [facility] Last Admin: 02/13/18 07:33 Dose: 15 mcg Aspirin (Ecotrin) 81 mg PO DAILY [facility] Last Admin: 02/13/18 09:26 Dose: 81 mg Atorvastatin Calcium (Lipitor) 20 mg PO HS [facility] Last Admin: 02/12/18 21:34 Dose: 20 mg Budesonide (Pulmicort Respules) 0.5 mg IH [id number] [facility] Last Admin: 02/13/18 07:33 Dose: 0.5 mg Dextrose (Dextrose 50% Inj) 0 ml IV STAT PRN; Protocol PRN Reason: Hypoglycemia Protocol Ergocalciferol (Drisdol 50,000 Intl Units Cap) 1 cap PO Q7D [facility] Last Admin: 02/11/18 15:18 Dose: 1 cap Ferrous Gluconate (Fergon) 324 mg PO TID [facility] Last Admin: 02/13/18 17:28 Dose: 324 mg Furosemide (Lasix) 40 mg IVP BID JR Stop: 02/15/18 18:01 Last Admin: 02/13/18 17:26 Dose: 40 mg Hydralazine HCl (Apresoline) 50 mg PO TID [facility] Last Admin: 02/13/18 17:26 Dose: 50 mg Azithromycin 250 mg/ Sodium (Chloride) 250 mls @ 167 mls/hr IVPB DAILY JR PRN Reason: Protocol Stop: 02/15/18 23:59 Last Admin: 02/13/18 11:09 Dose: 167 mls/hr Ceftriaxone Sodium (Rocephin 1 Gram Ivpb) 1 gm in 100 mls @ 100 mls/hr IVPB DAILY [facility] PRN Reason: Protocol Stop: 02/16/18 23:59 Last Admin: 02/13/18 09:24 Dose: 100 mls/hr Dextrose (Dextrose 5% In Water 1000 Ml) 1,000 mls @ 0 mls/hr IV .Q0M PRN; Protocol; Per Protocol PRN Reason: Hypoglycemia Protocol Insulin Detemir (Levemir) 20 unit SC Q12H [facility] Last Admin: 02/13/18 12:26 Dose: 20 units Insulin Human Regular (Humulin R Low) 0 units SC ACHS [facility] PRN Reason: Protocol Last Admin: 02/13/18 17:28 Dose: 2 unit Isosorbide Mononitrate (Imdur) 60 mg PO DAILY [facility] Last Admin: 02/13/18 09:24 Dose: 60 mg Lidocaine (Lidoderm) 1 ea TD DAILY [facility] Last Admin: 02/13/18 09:23 Dose: 1 ea Metolazone (Zaroxolyn) 2.5 mg PO DAILY [facility] Metoprolol Succinate (Toprol Xl) 100 mg PO BRK [facility] Last Admin: 02/13/18 08:20 Dose: 100 mg Oxybutynin Chloride (Ditropan Tab) 10 mg PO DAILY [facility] Last Admin: 02/13/18 09:25 Dose: 10 mg Oxycodone/Acetaminophen (Percocet 5/325 Mg Tab) 1 tab PO Q6H PRN PRN Reason: Pain, severe (8-10) Stop: 02/14/18 03:46 Last Admin: 02/12/18 08:28 Dose: 1 tab Pantoprazole Sodium (Protonix Ec Tab) 20 mg PO 0600 [facility] Last Admin: 02/13/18 05:42 Dose: 20 mg Pregabalin (Lyrica) 200 mg PO DAILY [facility] Last Admin: 02/13/18 09:26 Dose: 200 mg Primidone (Mysoline) 50 mg PO DAILY [facility] Last Admin: 02/13/18 09:26 Dose: 50 mg Vitamin B Complex/Vit C/Folic Acid (Nephro-Holland) 1 tab PO 0800 [facility] Last Admin: 02/13/18 08:19 Dose: 1 tab - Labs Labs: 02/13/18 05:48 02/13/18 05:48 PT 14.8 SECONDS (9.4-12.5) H 02/12/18 06:00 INR 1.28 02/12/18 06:00 Attending/Attestation - Attestation I have personally seen and examined this patient.: Yes I have fully participated in the care of the patient.: Yes I have reviewed all pertinent clinical information, including history, physical exam and plan: Yes Notes (Text): 02/13/18 19:01 62 year old female with past medical history of hypertension, diabetes, CAD, COPD, DVT/PE on eliquis, CKD, colorectal cancer s/p resection and colostomy, obesity and chronic back pain who presented s/p fall and intractable back pain. Found to have acute on chronic respiratoy failure secondary to right sided pneumonia and CHF. Continue with iv lasix and iv antibiotics. CT chest showed right sided pneumonia. Cardiology is following. Likely SUMMER/COPD component as well. Continue with Bipap HS and high flow during day as per pulmonary recommendations. ABG shows respiratory acidosis with metabolic alkalosis component as well. Discussed with nephrology who recommended added zaroloxyn. Continue to monitor kidney function closely while on diuretics. She was also found to have to acute on chronic renal failure, adrenal nodule and uncontrolled hypertension for which nephrology is following. Plasma renin/ aldosterone and metanephrin is ordered. Outpatient dexamathasone suppression test and repeat sonogram in 6 months is suggested. Patient is on percocet prn for back pain. Xray spines were reviewed. Unable to complete MRI secondary to weight. Recommended outpatient open MRI. PT evaluation was appreciated; recommended [facility]. Today patient is noted to have anemia with hemoglobin 7.9. Stool occult blood is positive. Iron studies reviewed. Will transfuse one unit; monitor fluid status closely with possible lasix if needed. GI evaluation is requested. Susanna Andre MD Hospitalist.
[2018-02-13] MEDS: Arformoterol 15 mcg/2 ml Inh Sol IH SCH ×2 (07:33→19:50)
[2018-02-13] MEDS: Budesonide 0.5 mg/2 ml Inhal Susp UD IH SCH ×2 (07:33→19:51)
[2018-02-13] MEDS: Acetylcysteine 20% Inhal Soln (4ml) INH SCH ×2 (07:33→19:50)
[2018-02-13] MEDS: Multivitamin Vitamin B Complex (Nephro-Vite) Tab PO SCH (08:19)
[2018-02-13] MEDS: Insulin Reg-LOW-Coverage SC SCH ×3 (08:20→17:28)
[2018-02-13] MEDS: Metoprolol Succinate 100 mg XL Tab PO SCH (08:20)
[2018-02-13] MEDS: Lidocaine 5% Patch TD SCH (09:23)
[2018-02-13] MEDS: cefTRIAXone 1 gm 1 GM/100 ML BAG IVPB SCH (09:24)
[2018-02-13 10:26] LABS: IRON 26 ug/dL (45-180)
[2018-02-13 10:36] LABS: % IRON SATURATION 14 % (20-55); TOTAL IRON BINDING CAPACITY 192 ug/dL (265-497)
--- NOTE | 2018-02-13 10:54 | CT ---
Date of service: 02/13/2018 PROCEDURE: CT Chest without contrast HISTORY: Intractable back pain. Pneumonia suspected. COMPARISON: 02/11/2018 single-view chest TECHNIQUE: Contiguous axial images were obtained through the chest without intravenous contrast enhancement. Sagittal and coronal reconstructions were performed. Radiation dose (DLP): 742.22 mGy-cm. This CT exam was performed using one or more of the following dose reduction techniques: Automated exposure control, adjustment of the mA and/or kV according to patient size, and/or use of iterative reconstruction technique. FINDINGS: LUNGS: Multifocal infiltrates primarily affecting right upper lobe and to lesser extent right lower lobe. Similar less pronounced changes identified left upper lobe. MEDIASTINUM: Unremarkable thoracic aorta. No aneurysm. Normal sized heart. Main pulmonary artery unremarkable. No vascular congestion. No lymphadenopathy.Venous access catheter in stable, satisfactory position. PLEURA: Trace right pleural effusion. BONES: No fracture. No destructive lesion. All degenerative change. UPPER ABDOMEN: Grossly unremarkable. Enlarged left adrenal gland, and incidental finding confirmed on prior CT scans as far back as 12/31/2015 to be stable. OTHER FINDINGS: None. IMPRESSION: Multifocal infiltrates right greater than left likely inflammatory/ infectious. Additional benign and/or incidental findings described above.
[2018-02-13] MEDS: Azithromycin 250 MG in Sodium Chloride 0.9% 250 ML IVPB SCH (11:09)
[2018-02-13] MEDS ORDERED: Dextrose 50% SYRINGE Inj (50 ml) IV PRN (12:11)
[2018-02-13] MEDS ORDERED: Insulin Detemir 100 units/ml Vial (Levemir) SC SCH (12:15)
[2018-02-13] MEDS: Insulin Detemir 100 units/ml Vial (Levemir) SC SCH ×2 (12:26→23:18)
--- NOTE | 2018-02-13 14:43 | PN ---
DATE: 02/13/2018 PULMONARY PROGRESS NOTE REFERRING PHYSICIAN: Dr. Andre. SUBJECTIVE: She is lying in the bed, head at 45 degrees. Much more awake and alert, on noninvasive ventilation, has some cough and shortness breath. No chest pain. No nausea. No vomiting. Colostomy bag draining well. Does have leg swelling. OBJECTIVE: GENERAL: In no acute distress. VITAL SIGNS: Temperature is 98, heart rate 77, respiratory rate is 20, blood pressure 135/73, pulse ox is 96% on BiPAP with 60% oxygen. HEENT: Moist mucous membrane. Crowded airway. NECK: Supple. No JVD. LUNGS: Have a scattered rhonchi. HEART: S1 and S2. ABDOMEN: Soft, nontender, nondistended. Colostomy bag working well. EXTREMITIES: Edema. NEUROLOGICAL: Awake and alert. Follows simple command. MEDICATIONS: She is on Mucomyst inhaled twice a day, hydralazine 50 mg three times a day, Zithromax 250 mg daily, Brovana inhaled twice a day, also on Ditropan 10 mg daily, vitamin D 50,000 units every 7 days, Ecotrin 81 mg daily, Eliquis 2.5 mg twice a day, ferrous gluconate 324 mg three times a day, Imdur 60 mg daily, Lasix 40 mg twice a day, Levemir 20 units subcu every 12 hours, lidocaine patch daily, Lipitor 20 mg daily, Lyrica 200 mg daily, primidone 50 mg daily, Nephro vitamins daily, Norvasc 10 mg daily, Percocet 5/325 one tab every 6 hours p.r.n., Protonix 20 mg daily, Pulmicort inhaled twice a day, Rocephin 1 g daily, Toprol-XL 100 mg daily. LABORATORY DATA: Shows hemoglobin 7.9, hematocrit 27, WBC 8.3, platelet count is 318. Blood gases this morning showed pH 7.32, pCO2 of 68, O2 of 68. This is on noninvasive ventilation with 50% oxygen. Sodium 140, potassium 4.3, chloride 97, bicarbonate 35, BUN 44, creatinine 2.1, glucose 154, hemoglobin A1c 7.4, iron is 26, AST 25, ALT 11, alk phos is 105. ProBNP 6280. Albumin is 3. Procalcitonin is 1.59. Microbiology: Blood culture, urine culture, there is no growth. IMPRESSION AND PLAN: Respiratory failure, [id number], requiring noninvasive ventilation; carbon dioxide retention; multilobar pneumonia; chronic obstructive lung disease; morbid obesity; coronary artery disease with cardiomyopathy; history of pulmonary embolism; history of deep venous thrombosis; renal failure; anemia; history of colorectal carcinoma requiring resection; has a colostomy. We will suggest to place her on high-flow oxygen while awake. Keep head elevated at 45 degrees. May use bilevel positive airway pressure while sleeping. Continue supplemental oxygen. Continue antibiotics, bronchodilator, gastric prophylaxis. On anticoagulation. Follow up H and H closely. Spoke to nursing staff. Thank you. We will follow with you. Pamela Ayala MD
--- NOTE | 2018-02-13 18:09 | PN ---
DATE: 02/13/2018 FOLLOWUP SUBJECTIVE: The patient is short of breath. She is currently on BiPAP. She denies any retrosternal chest pain. PHYSICAL EXAMINATION VITAL SIGNS: Blood pressure 135/73, heart rate 79, temperature 98.5, and respirations 18. HEENT: Pale conjunctivae. CHEST: Absent breath sounds over the right base. HEART: S1 and S2, regular. ABDOMEN: Soft. EXTREMITIES: 1+ pitting edema. LABORATORY DATA: Hemoglobin and hematocrit 7.9 and 27. White count and platelet count are within normal limits. Today's SMA-7: Sodium 140, potassium 4.3, chloride 97, CO2 of 35. Glucose 154. BUN 44, creatinine 2.1. X-ray of thoracic and lumbar spine revealed no fracture. Chest CT scan without contrast revealed multifocal infiltrate of the right greater than the left, likely inflammatory/infectious. ASSESSMENT: 1. Bilateral pneumonia. 2. Coronary artery disease/history of chronic stenting a few years ago to the circumflex artery. 3. Anemia. 4. Status post fall. 5. History of deep venous thrombosis and pulmonary embolism in the past, status post inferior vena cava filter placement. 6. History of rectal carcinoma, status post resection and colostomy as well as chemotherapy. 7. Hypertension and diabetes mellitus. 8. Chronic renal insufficiency. RECOMMENDATIONS: Continue hydralazine 50 mg b.i.d., Zithromax 250 mg intravenously daily, Brovana 15 mcg inhalation twice a day, aspirin 81 mg once a day, Eliquis 2.5 mg twice a day, Imdur 60 mg once a day, Lasix 40 mg intravenously twice a day, Lipitor 20 mg once a day, Norvasc 10 mg once a day, Toprol-XL 100 mg once a day, and Rocephin 1 g intravenously daily. Gildardo Barry MD
--- NOTE | 2018-02-13 18:33 | PN ---
DATE: 02/13/2018 SUBJECTIVE: The patient is seen lying in bed. She is awake, somewhat groggy. She is on BiPAP currently. She appears to be in mild respiratory distress. She really cannot participate with review of systems. Her 24-hour urine output was 3150. Her intake was 1800. She is receiving Lasix 40 mg b.i.d. She has been on BiPAP overnight. PHYSICAL EXAMINATION GENERAL: Morbidly obese elderly lady, lying in bed, in mild respiratory distress, on BiPAP. VITAL SIGNS: Blood pressure 135/73, heart rate 73, respiratory rate 18, temperature 98.5. HEENT: Normocephalic, atraumatic, positive pallor. NECK: Supple, no JVD. LUNGS: Bilateral equal air entry, bilateral rhonchi, no rales appreciated anteriorly. CARDIAC: S1 and S2, regular rate rhythm, no murmur, no rub. ABDOMEN: Obese, distended, soft, bowel sounds present, left-sided colostomy. EXTREMITIES: A 2+ pitting edema of the lower extremities. INTAKE AND OUTPUT: 1800/3150. LABORATORY DATA: WBC 8.3, hemoglobin 7.9, hematocrit 27, platelets 318. Sodium 140, potassium 4.3, chloride 97, CO2 of 35, BUN 44, creatinine 2.1, glucose 154, calcium 8.5, A1c 7.4. Iron saturation 14, iron 26, ferritin 86. BNP 6280, albumin 3, globulin 3.4, procalcitonin 1.5. PTH 82. Urinalysis done on the , urine protein 100, nitrite negative, leukocyte esterase small. Stool occults positive. Blood cultures no growth. CURRENT MEDICATIONS: Mucomyst, hydralazine 50 t.i.d., Zithromax 250 daily, Brovana, D5W p.r.n., Ditropan 10 mg, Drisdol 50,000 units, Ecotrin, Eliquis 2.5 b.i.d., ferrous gluconate 324 t.i.d., Imdur, Lasix 40 IV every 12 hours, insulin, Lipitor, Lyrica, amlodipine 10, Protonix, Percocet, Pulmicort, Rocephin 1 g daily, Toprol XL 100. ASSESSMENT: 1. Acute kidney injury superimposed on chronic kidney disease stage III. 2. Acute kidney injury, likely secondary to gastrointestinal blood loss, pneumonia. 3. Respiratory failure. 4. Combined metabolic and respiratory acidosis. 5. Intractable back pain. 6. Sleep apnea/chronic obstructive pulmonary disease. 7. Pneumonia. 8. CT of the chest shows multifocal infiltrates, right greater than left. PLAN: 1. Add Zaroxolyn 2.5 mg daily. 2. Recommend GI evaluation for GI blood loss. 3. Consider blood transfusion. 4. Continue antibiotics for pneumonia. 5. Dose all antibiotics for creatinine clearance 10-30 mL/minute. 6. Monitor urine output closely. 7. Continue respiratory support with BiPAP. PMSFSHx/ROS all reviewed Kristine Archibald MD [id number]
[2018-02-13] MEDS: Oxycodone/Acetaminophen 5/325 mg Tab PO PRN (23:17)
[2018-02-14] MEDS: Insulin Reg-LOW-Coverage SC SCH ×5 (00:40→23:24)
[2018-02-14 05:42] LABS: ARTERIAL BLOOD GAS HCO3 36.4 mmol/L (21-28); ARTERIAL BLOOD GAS HEMOGLOBIN 9.3 g/dL (11.7-17.4); ARTERIAL BLOOD GAS O2 CAPACITY 12.9 mL/dl (16-24); ARTERIAL BLOOD GAS O2 CONTENT 12.6 ML/dl (15-23); ARTERIAL BLOOD GAS O2 SAT 97.4 % (95-98); ARTERIAL BLOOD GAS PCO2 66 mm/Hg (35-45); ARTERIAL BLOOD GAS PH 7.35 (7.35-7.45); ARTERIAL BLOOD GAS TCO2 38.4 mmol.L (22-28)
[2018-02-14] MEDS: Pantoprazole 20 mg EC Tab PO SCH (05:58)
[2018-02-14 06:38] LABS: BASO # 0.02 K/mm3 (0.0-2.0); BASO % 0.3 % (0.0-3.0); EOS # 0.3 (0.0-0.7); EOS % 4.7 % (1.5-5.0); GRAN # 4.13 (1.4-6.5); HEMOGLOBIN 8.6 g/dL (12.0-16.0); LYMPH # 1.7 (1.2-3.4); LYMPH % 25.6 % (22.0-35.0); MEAN CELL VOLUME 82.6 fl (80.0-105.0); MEAN CORPUSCULAR HEMOGLOBIN 24.9 pg (25.0-35.0); MEAN CORPUSCULAR HGB CONC 30.2 g/dl (31.0-37.0); MEAN PLATELET VOLUME 10.7 fl (7.0-11.0); MONO # 0.4 (0.1-0.6); MONO % 6.4 % (1.0-6.0); RBC 3.45 10^6/uL (3.5-6.1); WHITE BLOOD COUNT 6.6 10^3/ul (4.5-11.0)
[2018-02-14 06:56] LABS: ALB/GLOB RATIO 0.8 (1.1-1.8); CALCIUM 8.6 mg/dL (8.4-10.5)
--- NOTE | 2018-02-14 06:58 | CP.PCM.CON ---
<Caio Stokes - Last Filed: 02/14/18 09:27> History of Present Illness - History of Present Illness History of Present Illness: GI Fellow PGY4, consult note. Pedro Guevara is a very complex 62F with extensive medical history, importantly rectal CA (2013) s/[ chemoradiation, colostomy. PET scan 2017 - no systemic disease. CEA 09/2017 4.4. She has been seen several times in the past by GI inpatient team. She has not followed up as outpt for colonoscopy. This time, she is presenting with fall, and found to have UTI/PNA. GI consulted for drop in Hb and +FOBT. Patient takes Eliquis for hx of DVT/PE. PMHx - T2DM, HTN, COPD/SUMMER, CKD, Rectal CA, PE on OAC PSHx - Appy, colostomy 12pt ROS neg except for above. Past Patient History - Infectious Disease Hx of Infectious Diseases: None - Tetanus Immunizations Tetanus Immunization: Unknown - Past Social History Smoking Status: Never Smoked - CARDIAC Hx Hypercholesterolemia: Yes Hx Hypertension: Yes - PULMONARY Hx Respiratory Disorders: Yes Hx Bronchitis: Yes - NEUROLOGICAL Hx Neurological Disorder: Yes Hx Dizziness: Yes - HEENT Hx Macular Degeneration: No - RENAL Hx Renal Failure: Yes - ENDOCRINE/METABOLIC Hx Diabetes Mellitus Type 2: Yes - HEMATOLOGICAL/ONCOLOGICAL Hx Blood Disorders: No - INTEGUMENTARY Hx Dermatological Problems: No - MUSCULOSKELETAL/RHEUMATOLOGICAL Hx Falls: No - GASTROINTESTINAL Hx Gastrointestinal Disorders: Yes (RECTAL CA WITH COLOSTOMY,GI BLEED) - GENITOURINARY/GYNECOLOGICAL Hx Genitourinary Disorders: Yes (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,UTI) - PSYCHIATRIC Hx Psychophysiologic Disorder: Yes Hx Anxiety: Yes Hx Substance Use: No - SURGICAL HISTORY Hx Appendectomy: Yes Hx Coronary Stent: Yes Other/Comment: colostomy - ANESTHESIA Hx Anesthesia: Yes Hx Anesthesia Reactions: No Hx Malignant Hyperthermia: No Meds Allergies/Adverse Reactions: Allergies Allergy/AdvReac Type Severity Reaction Status Date / Time No Known Allergies Allergy Verified 02/10/18 19:15 - Medications Medications: Current Medications Acetylcysteine (Acetylcysteine 20%) 3 ml INH [id number] [facility] Last Admin: 02/13/18 19:50 Dose: 3 ml Amlodipine Besylate (Norvasc) 10 mg PO DAILY [facility] Last Admin: 02/13/18 09:25 Dose: 10 mg Apixaban (Eliquis) 2.5 mg PO BID [facility] PRN Reason: Protocol Last Admin: 02/13/18 17:28 Dose: 2.5 mg Arformoterol Tartrate (Brovana) 15 mcg IH [id number] [facility] Last Admin: 02/13/18 19:50 Dose: 15 mcg Aspirin (Ecotrin) 81 mg PO DAILY [facility] Last Admin: 02/13/18 09:26 Dose: 81 mg Atorvastatin Calcium (Lipitor) 20 mg PO HS [facility] Last Admin: 02/13/18 23:17 Dose: 20 mg Budesonide (Pulmicort Respules) 0.5 mg IH [id number] [facility] Last Admin: 02/13/18 19:51 Dose: 0.5 mg Dextrose (Dextrose 50% Inj) 0 ml IV STAT PRN; Protocol PRN Reason: Hypoglycemia Protocol Ergocalciferol (Drisdol 50,000 Intl Units Cap) 1 cap PO Q7D [facility] Last Admin: 02/11/18 15:18 Dose: 1 cap Ferrous Gluconate (Fergon) 324 mg PO TID [facility] Last Admin: 02/13/18 17:28 Dose: 324 mg Furosemide (Lasix) 40 mg IVP BID [facility] Stop: 02/15/18 18:01 Last Admin: 02/13/18 17:26 Dose: 40 mg Hydralazine HCl (Apresoline) 50 mg PO TID [facility] Last Admin: 02/13/18 17:26 Dose: 50 mg Azithromycin 250 mg/ Sodium (Chloride) 250 mls @ 167 mls/hr IVPB DAILY [facility] PRN Reason: Protocol Stop: 02/15/18 23:59 Last Admin: 02/13/18 11:09 Dose: 167 mls/hr Ceftriaxone Sodium (Rocephin 1 Gram Ivpb) 1 gm in 100 mls @ 100 mls/hr IVPB DAILY [facility] PRN Reason: Protocol Stop: 02/16/18 23:59 Last Admin: 02/13/18 09:24 Dose: 100 mls/hr Dextrose (Dextrose 5% In Water 1000 Ml) 1,000 mls @ 0 mls/hr IV .Q0M PRN; Protocol; Per Protocol PRN Reason: Hypoglycemia Protocol Insulin Detemir (Levemir) 20 unit SC Q12H [facility] Last Admin: 02/13/18 23:18 Dose: 20 units Insulin Human Regular (Humulin R Low) 0 units SC ACHS JR PRN Reason: Protocol Last Admin: 02/14/18 00:40 Dose: Not Given Isosorbide Mononitrate (Imdur) 60 mg PO DAILY [facility] Last Admin: 02/13/18 09:24 Dose: 60 mg Lidocaine (Lidoderm) 1 ea TD DAILY [facility] Last Admin: 02/13/18 09:23 Dose: 1 ea Metolazone (Zaroxolyn) 2.5 mg PO DAILY [facility] Metoprolol Succinate (Toprol Xl) 100 mg PO BRK [facility] Last Admin: 02/13/18 08:20 Dose: 100 mg Oxybutynin Chloride (Ditropan Tab) 10 mg PO DAILY [facility] Last Admin: 02/13/18 09:25 Dose: 10 mg Oxycodone/Acetaminophen (Percocet 5/325 Mg Tab) 1 tab PO Q6H PRN PRN Reason: Pain, moderate (4-7) Stop: 02/17/18 05:27 Pantoprazole Sodium (Protonix Ec Tab) 20 mg PO 0600 [facility] Last Admin: 02/14/18 05:58 Dose: 20 mg Pregabalin (Lyrica) 200 mg PO DAILY [facility] Last Admin: 02/13/18 09:26 Dose: 200 mg Primidone (Mysoline) 50 mg PO DAILY [facility] Last Admin: 02/13/18 09:26 Dose: 50 mg Vitamin B Complex/Vit C/Folic Acid (Nephro-[place]) 1 tab PO 0800 [facility] Last Admin: 02/13/18 08:19 Dose: 1 tab Physical Exam - Constitutional Appears: No Acute Distress, Chronically Ill - Head Exam Head Exam: NORMAL INSPECTION - Eye Exam Eye Exam: Normal appearance - ENT Exam ENT Exam: Mucous Membranes Moist - Neck Exam Additional comments: short, large neck - Respiratory Exam Respiratory Exam: Clear to Auscultation Bilateral, Prolonged Expiratory Phase, Wheezes, NORMAL BREATHING PATTERN - Cardiovascular Exam Cardiovascular Exam: REGULAR RHYTHM, +S1, +S2 - GI/Abdominal Exam GI & Abdominal Exam: Normal Bowel Sounds, Soft. absent: Tenderness Additional comments: Brown stool in ostomy bag. - Extremities Exam Extremities exam: Positive for: normal inspection - Neurological Exam Neurological exam: Alert, CN II-XII Intact, Oriented x3 - Psychiatric Exam Psychiatric exam: Normal Affect, Normal Mood - Skin Skin Exam: Dry, Normal Color Results - Vital Signs Recent Vital Signs: Last Vital Signs Temp 98.3 F 02/14/18 06:00 Pulse 67 02/14/18 06:00 Resp 20 02/14/18 06:00 BP 170/66 H 02/14/18 06:00 Pulse Ox 97 02/14/18 06:00 - Labs Result Diagrams: 02/14/18 06:15 02/14/18 06:15 Labs: Laboratory Results - last 24 hr 02/13/18 02/13/18 02/13/18 05:30 05:48 05:48 WBC RBC Hgb Hct MCV MCH MCHC RDW Plt Count MPV Gran % Lymph % (Auto) [place] % (Auto) Eos % (Auto) Baso % (Auto) Gran # Lymph # (Auto) [place] # (Auto) Eos # (Auto) Baso # (Auto) pCO2 68 H pO2 68.0 L HCO3 35.0 H ABG pH 7.32 L ABG Total CO2 37.1 H ABG O2 Saturation 95.0 ABG O2 Content 12.9 L ABG Base Excess 7.3 H ABG Hemoglobin 9.9 L ABG Carboxyhemoglobin 2.0 H POC ABG HHb (Measured) 4.9 ABG Methemoglobin 0.8 ABG O2 Capacity 13.6 L Hgb O2 Saturation 92.3 L FiO2 50.0 Sodium 140 Potassium 4.3 Chloride 97 L Carbon Dioxide 35 H Anion Gap 12 BUN 44 H Creatinine 2.1 H Est GFR ( Amer) 29 Est GFR (Non-Af Amer) 24 POC Glucose (mg/dL) Random Glucose 154 H Hemoglobin A1c 7.4 H Calcium 8.5 Iron TIBC % Saturation Ferritin Total Bilirubin 0.2 AST 25 ALT 11 Alkaline Phosphatase 105 Total Protein 6.4 Albumin 3.0 Globulin 3.4 Albumin/Globulin Ratio 0.9 L Triglycerides 89 Cholesterol 167 LDL Cholesterol Direct 92 HDL Cholesterol 36 Procalcitonin Stool Occult Blood Blood Type Antibody Screen Crossmatch BBK History Checked 02/13/18 02/13/18 02/13/18 05:48 07:18 09:00 WBC RBC Hgb Hct MCV MCH MCHC RDW Plt Count MPV Gran % Lymph % (Auto) [place] % (Auto) Eos % (Auto) Baso % (Auto) Gran # Lymph # (Auto) [place] # (Auto) Eos # (Auto) Baso # (Auto) pCO2 pO2 HCO3 ABG pH ABG Total CO2 ABG O2 Saturation ABG O2 Content ABG Base Excess ABG Hemoglobin ABG Carboxyhemoglobin POC ABG HHb (Measured) ABG Methemoglobin ABG O2 Capacity Hgb O2 Saturation FiO2 Sodium Potassium Chloride Carbon Dioxide Anion Gap BUN Creatinine Est GFR ( Amer) Est GFR (Non-Af Amer) POC Glucose (mg/dL) 165 H Random Glucose Hemoglobin A1c Calcium Iron 26 L TIBC 192 L % Saturation 14 L Ferritin Total Bilirubin AST ALT Alkaline Phosphatase Total Protein Albumin Globulin Albumin/Globulin Ratio Triglycerides Cholesterol LDL Cholesterol Direct HDL Cholesterol Procalcitonin 1.59 H Stool Occult Blood Blood Type Antibody Screen Crossmatch BBK History Checked 02/13/18 02/13/18 02/13/18 09:00 11:07 13:55 WBC RBC Hgb Hct MCV MCH MCHC RDW Plt Count MPV Gran % Lymph % (Auto) [place] % (Auto) Eos % (Auto) Baso % (Auto) Gran # Lymph # (Auto) [place] # (Auto) Eos # (Auto) Baso # (Auto) pCO2 pO2 HCO3 ABG pH ABG Total CO2 ABG O2 Saturation ABG O2 Content ABG Base Excess ABG Hemoglobin ABG Carboxyhemoglobin POC ABG HHb (Measured) ABG Methemoglobin ABG O2 Capacity Hgb O2 Saturation FiO2 Sodium Potassium Chloride Carbon Dioxide Anion Gap BUN Creatinine Est GFR ( Amer) Est GFR (Non-Af Amer) POC Glucose (mg/dL) 237 H Random Glucose Hemoglobin A1c Calcium Iron TIBC % Saturation Ferritin 164.0 Total Bilirubin AST ALT Alkaline Phosphatase Total Protein Albumin Globulin Albumin/Globulin Ratio Triglycerides Cholesterol LDL Cholesterol Direct HDL Cholesterol Procalcitonin Stool Occult Blood Positive H Blood Type Antibody Screen Crossmatch BBK History Checked 02/13/18 02/13/18 02/13/18 16:01 19:56 21:26 WBC RBC Hgb Hct MCV MCH MCHC RDW Plt Count MPV Gran % Lymph % (Auto) [place] % (Auto) Eos % (Auto) Baso % (Auto) Gran # Lymph # (Auto) [place] # (Auto) Eos # (Auto) Baso # (Auto) pCO2 pO2 HCO3 ABG pH ABG Total CO2 ABG O2 Saturation ABG O2 Content ABG Base Excess ABG Hemoglobin ABG Carboxyhemoglobin POC ABG HHb (Measured) ABG Methemoglobin ABG O2 Capacity Hgb O2 Saturation FiO2 Sodium Potassium Chloride Carbon Dioxide Anion Gap BUN Creatinine Est GFR ( Amer) Est GFR (Non-Af Amer) POC Glucose (mg/dL) 203 H 216 H Random Glucose Hemoglobin A1c Calcium Iron TIBC % Saturation Ferritin Total Bilirubin AST ALT Alkaline Phosphatase Total Protein Albumin Globulin Albumin/Globulin Ratio Triglycerides Cholesterol LDL Cholesterol Direct HDL Cholesterol Procalcitonin Stool Occult Blood Blood Type O POSITIVE Antibody Screen Negative Crossmatch See Detail BBK History Checked Patient has bt 02/14/18 02/14/18 05:25 06:15 WBC 6.6 D RBC 3.45 L Hgb 8.6 L Hct 28.5 L MCV 82.6 MCH 24.9 L MCHC 30.2 L RDW 16.0 H Plt Count 329 MPV 10.7 Gran % 63.0 Lymph % (Auto) 25.6 [place] % (Auto) 6.4 H Eos % (Auto) 4.7 Baso % (Auto) 0.3 Gran # 4.13 Lymph # (Auto) 1.7 [place] # (Auto) 0.4 Eos # (Auto) 0.3 Baso # (Auto) 0.02 pCO2 66 H pO2 90.0 HCO3 36.4 H ABG pH 7.35 ABG Total CO2 38.4 H ABG O2 Saturation 97.4 ABG O2 Content 12.6 L ABG Base Excess 9.2 H ABG Hemoglobin 9.3 L ABG Carboxyhemoglobin 1.6 H POC ABG HHb (Measured) 2.5 ABG Methemoglobin 0.9 ABG O2 Capacity 12.9 L Hgb O2 Saturation 95.0 FiO2 50.0 Sodium Potassium Chloride Carbon Dioxide Anion Gap BUN Creatinine Est GFR ( Amer) Est GFR (Non-Af Amer) POC Glucose (mg/dL) Random Glucose Hemoglobin A1c Calcium Iron TIBC % Saturation Ferritin Total Bilirubin AST ALT Alkaline Phosphatase Total Protein Albumin Globulin Albumin/Globulin Ratio Triglycerides Cholesterol LDL Cholesterol Direct HDL Cholesterol Procalcitonin Stool Occult Blood Blood Type Antibody Screen Crossmatch BBK History Checked Assessment & Plan - Assessment and Plan (Free Text) Assessment: Very complex 62F with extensive history including cardiopulmonary disease, rectal CA s/p chemoradiation 2013 now presenting with fall. We were consulted for anemia with FOBT+. #Chronic anemia - Ranges from 8 to 10 over the last two years. Likely multifactorial (chronic disease, CKD). Cannot r/o GI bleed at this time while on OAC. #Hx of rectal CA (2013) s/p chemoradiation and colostomy - CEA 2014 normal. 4.4, elevated. PET scan 2016 - No systemic disease. #DVT/PE - On Eliquis #Acute on chronic hypercapnic respiratory failure #Pulmonary HTN #Sepsis - UTI/PNA #Morbid obesity #SUMMER #T2DM #HTN #SHELBI on CKD PLAN: -Very complex, non-compliant patient currently with acute on chronic conditions. She is at very high risk for intraoperative complication. Will need to discuss with primary, anesthesia, cardiology, pulmonology before any endoscopic procedures to be done. -CT reviewed w/o oral or IV contrast. -Optimize clinical conditions -Continue PPI -Would continue OAC consider previous b/l PE and no signs of major bleed at this time. However, she must be monitored closely. -Trend Hb daily. Monitor ostomy site output for melena, bloody. -Retic count -CEA - Date & Time Date: 02/14/18 Time: 06:51 <Gita Benitez V - Last Filed: 02/14/18 22:17> Meds - Medications Medications: Current Medications Acetylcysteine (Acetylcysteine 20%) 3 ml INH [id number] [facility] Last Admin: 02/14/18 19:24 Dose: 3 ml Amlodipine Besylate (Norvasc) 10 mg PO DAILY [facility] Last Admin: 02/14/18 10:26 Dose: 10 mg Apixaban (Eliquis) 2.5 mg PO BID JR PRN Reason: Protocol Last Admin: 02/14/18 17:35 Dose: 2.5 mg Arformoterol Tartrate (Brovana) 15 mcg IH [id number] [facility] Last Admin: 02/14/18 19:24 Dose: 15 mcg Aspirin (Ecotrin) 81 mg PO DAILY [facility] Last Admin: 02/14/18 10:27 Dose: 81 mg Atorvastatin Calcium (Lipitor) 20 mg PO HS [facility] Last Admin: 02/13/18 23:17 Dose: 20 mg Budesonide (Pulmicort Respules) 0.5 mg IH [id number] [facility] Last Admin: 02/14/18 19:25 Dose: 0.5 mg Dextrose (Dextrose 50% Inj) 0 ml IV STAT PRN; Protocol PRN Reason: Hypoglycemia Protocol Ergocalciferol (Drisdol 50,000 Intl Units Cap) 1 cap PO Q7D [facility] Last Admin: 02/11/18 15:18 Dose: 1 cap Ferrous Gluconate (Fergon) 324 mg PO TID [facility] Last Admin: 02/14/18 17:35 Dose: 324 mg Furosemide (Lasix) 40 mg IVP BID [facility] Stop: 02/15/18 18:01 Last Admin: 02/14/18 17:34 Dose: 40 mg Hydralazine HCl (Apresoline) 50 mg PO TID [facility] Last Admin: 02/14/18 17:35 Dose: 50 mg Azithromycin 250 mg/ Sodium (Chloride) 250 mls @ 167 mls/hr IVPB DAILY [facility] PRN Reason: Protocol Stop: 02/15/18 23:59 Last Admin: 02/14/18 10:28 Dose: 167 mls/hr Ceftriaxone Sodium (Rocephin 1 Gram Ivpb) 1 gm in 100 mls @ 100 mls/hr IVPB DAILY [facility] PRN Reason: Protocol Stop: 02/16/18 23:59 Last Admin: 02/14/18 10:28 Dose: 100 mls/hr Dextrose (Dextrose 5% In Water 1000 Ml) 1,000 mls @ 0 mls/hr IV .Q0M PRN; Protocol; Per Protocol PRN Reason: Hypoglycemia Protocol Insulin Detemir (Levemir) 20 unit SC Q12H [facility] Last Admin: 02/14/18 12:20 Dose: 20 units Insulin Human Regular (Humulin R Low) 0 units SC ACHS [facility] PRN Reason: Protocol Last Admin: 02/14/18 16:59 Dose: Not Given Isosorbide Mononitrate (Imdur) 60 mg PO DAILY [facility] Last Admin: 02/14/18 10:26 Dose: 60 mg Lidocaine (Lidoderm) 1 ea TD DAILY [facility] Last Admin: 02/14/18 10:27 Dose: 1 ea Metolazone (Zaroxolyn) 2.5 mg PO DAILY [facility] Last Admin: 02/14/18 10:25 Dose: 2.5 mg Metoprolol Succinate (Toprol Xl) 100 mg PO BRK [facility] Last Admin: 02/14/18 08:32 Dose: 100 mg Oxybutynin Chloride (Ditropan Tab) 10 mg PO DAILY [facility] Last Admin: 02/14/18 10:26 Dose: 10 mg Oxycodone/Acetaminophen (Percocet 5/325 Mg Tab) 1 tab PO Q6H PRN PRN Reason: Pain, moderate (4-7) Stop: 02/17/18 05:27 Pantoprazole Sodium (Protonix Ec Tab) 20 mg PO 0600 [facility] Last Admin: 02/14/18 05:58 Dose: 20 mg Pregabalin (Lyrica) 200 mg PO DAILY [facility] Last Admin: 02/14/18 10:25 Dose: 200 mg Primidone (Mysoline) 50 mg PO DAILY [facility] Last Admin: 02/14/18 10:27 Dose: 50 mg Vitamin B Complex/Vit C/Folic Acid (Nephro-[place]) 1 tab PO 0800 [facility] Last Admin: 02/14/18 08:32 Dose: 1 tab Results - Vital Signs Recent Vital Signs: Last Vital Signs Temp 97.8 F 02/14/18 17:36 Pulse 82 02/14/18 19:30 Resp 18 02/14/18 17:36 BP 135/64 02/14/18 17:36 Pulse Ox 97 02/14/18 06:00 - Labs Result Diagrams: 02/14/18 06:15 02/14/18 06:15 Labs: Laboratory Results - last 24 hr 02/13/18 02/14/18 02/14/18 19:56 05:25 06:15 WBC 6.6 D RBC 3.45 L Hgb 8.6 L Hct 28.5 L MCV 82.6 MCH 24.9 L MCHC 30.2 L RDW 16.0 H Plt Count 329 MPV 10.7 Gran % 63.0 Lymph % (Auto) 25.6 [place] % (Auto) 6.4 H Eos % (Auto) 4.7 Baso % (Auto) 0.3 Gran # 4.13 Lymph # (Auto) 1.7 [place] # (Auto) 0.4 Eos # (Auto) 0.3 Baso # (Auto) 0.02 pCO2 66 H pO2 90.0 HCO3 36.4 H ABG pH 7.35 ABG Total CO2 38.4 H ABG O2 Saturation 97.4 ABG O2 Content 12.6 L ABG Base Excess 9.2 H ABG Hemoglobin 9.3 L ABG Carboxyhemoglobin 1.6 H POC ABG HHb (Measured) 2.5 ABG Methemoglobin 0.9 ABG O2 Capacity 12.9 L Hgb O2 Saturation 95.0 FiO2 50.0 Sodium Potassium Chloride Carbon Dioxide Anion Gap BUN Creatinine Est GFR ( Amer) Est GFR (Non-Af Amer) POC Glucose (mg/dL) Random Glucose Calcium Total Bilirubin AST ALT Alkaline Phosphatase Total Protein Albumin Globulin Albumin/Globulin Ratio Blood Type O POSITIVE Antibody Screen Negative Crossmatch See Detail BBK History Checked Patient has bt 02/14/18 02/14/18 02/14/18 06:15 07:08 10:59 WBC RBC Hgb Hct MCV MCH MCHC RDW Plt Count MPV Gran % Lymph % (Auto) [place] % (Auto) Eos % (Auto) Baso % (Auto) Gran # Lymph # (Auto) [place] # (Auto) Eos # (Auto) Baso # (Auto) pCO2 pO2 HCO3 ABG pH ABG Total CO2 ABG O2 Saturation ABG O2 Content ABG Base Excess ABG Hemoglobin ABG Carboxyhemoglobin POC ABG HHb (Measured) ABG Methemoglobin ABG O2 Capacity Hgb O2 Saturation FiO2 Sodium 139 Potassium 4.4 Chloride 97 L Carbon Dioxide 38 H Anion Gap 9 L BUN 52 H Creatinine 2.0 H Est GFR ( Amer) 30 Est GFR (Non-Af Amer) 25 POC Glucose (mg/dL) 123 H 150 H Random Glucose 136 H Calcium 8.6 Total Bilirubin 0.3 AST 32 ALT 14 Alkaline Phosphatase 106 Total Protein 6.5 Albumin 3.0 Globulin 3.6 Albumin/Globulin Ratio 0.8 L Blood Type Antibody Screen Crossmatch BBK History Checked 02/14/18 02/14/18 16:25 21:31 WBC RBC Hgb Hct MCV MCH MCHC RDW Plt Count MPV Gran % Lymph % (Auto) [place] % (Auto) Eos % (Auto) Baso % (Auto) Gran # Lymph # (Auto) [place] # (Auto) Eos # (Auto) Baso # (Auto) pCO2 pO2 HCO3 ABG pH ABG Total CO2 ABG O2 Saturation ABG O2 Content ABG Base Excess ABG Hemoglobin ABG Carboxyhemoglobin POC ABG HHb (Measured) ABG Methemoglobin ABG O2 Capacity Hgb O2 Saturation FiO2 Sodium Potassium Chloride Carbon Dioxide Anion Gap BUN Creatinine Est GFR ( Amer) Est GFR (Non-Af Amer) POC Glucose (mg/dL) 132 H 181 H Random Glucose Calcium Total Bilirubin AST ALT Alkaline Phosphatase Total Protein Albumin Globulin Albumin/Globulin Ratio Blood Type Antibody Screen Crossmatch BBK History Checked Attending/Attestation - Attestation I have personally seen and examined this patient.: Yes I have fully participated in the care of the patient.: Yes I have reviewed all pertinent clinical information: Yes Notes (Text): This is an addendum to GI consult report dictated by the GI Fellow.The patient was seen and examined earlier. Medical records, lab studies, imagings were reviewed. Last 24 hours events reviewed. Agreed with the above treatment plan as outlined in GI Fellow 's notes with the addition of the following This mobidly obese patient present with severe anemia patient has severe multiple co morbidity On examination patient has a colostomy and mucus fistula Patient denies any GI bleeding Would benefit from EGD colonoscopy after optimization 02/14/18 22:14
[2018-02-14] MEDS: Arformoterol 15 mcg/2 ml Inh Sol IH SCH ×2 (07:24→19:24)
[2018-02-14] MEDS: Budesonide 0.5 mg/2 ml Inhal Susp UD IH SCH ×3 (07:24→19:25)
[2018-02-14] MEDS: Acetylcysteine 20% Inhal Soln (4ml) INH SCH ×2 (07:24→19:24)
--- NOTE | 2018-02-14 08:03 | CP.PCM.PN ---
<Zackery Naqvi - Last Filed: 02/14/18 20:12> Subjective - Date & Time of Evaluation Date of Evaluation: 02/14/18 Time of Evaluation: 05:49 - Subjective Subjective: Zackery Naqvi DO PGY-1, Internal Medicine Resident. Hospitalist Progress Note Patient seen and examined at bedside. Patient is on BiPAP with improved breathing pattern and no respiratory distress. Slept well. . No acute events overnight. No complications after pRBCs transfusion last night. Patient denied CP, palpitations, headache, fever. ROS is otherwise negative Objective - Vital Signs/Intake and Output Vital Signs (last 24 hours): Temp Pulse Resp BP Pulse Ox 98.3 F 67 20 170/66 H 97 02/14/18 06:00 02/14/18 06:00 02/14/18 06:00 02/14/18 06:00 02/14/18 06:00 Intake and Output: 02/14/18 02/14/18 06:59 18:59 Intake Total 1520 Output Total 1300 Balance 220 - Medications Medications: Current Medications Acetylcysteine (Acetylcysteine 20%) 3 ml INH [id number] [facility] Last Admin: 02/14/18 07:24 Dose: Not Given Amlodipine Besylate (Norvasc) 10 mg PO DAILY [facility] Last Admin: 02/13/18 09:25 Dose: 10 mg Apixaban (Eliquis) 2.5 mg PO BID JR PRN Reason: Protocol Last Admin: 02/13/18 17:28 Dose: 2.5 mg Arformoterol Tartrate (Brovana) 15 mcg IH [id number] [facility] Last Admin: 02/14/18 07:24 Dose: 15 mcg Aspirin (Ecotrin) 81 mg PO DAILY [facility] Last Admin: 02/13/18 09:26 Dose: 81 mg Atorvastatin Calcium (Lipitor) 20 mg PO HS [facility] Last Admin: 02/13/18 23:17 Dose: 20 mg Budesonide (Pulmicort Respules) 0.5 mg IH [id number] [facility] Last Admin: 02/14/18 07:24 Dose: 0.5 mg Dextrose (Dextrose 50% Inj) 0 ml IV STAT PRN; Protocol PRN Reason: Hypoglycemia Protocol Ergocalciferol (Drisdol 50,000 Intl Units Cap) 1 cap PO Q7D [facility] Last Admin: 02/11/18 15:18 Dose: 1 cap Ferrous Gluconate (Fergon) 324 mg PO TID [facility] Last Admin: 02/13/18 17:28 Dose: 324 mg Furosemide (Lasix) 40 mg IVP BID [facility] Stop: 02/15/18 18:01 Last Admin: 02/13/18 17:26 Dose: 40 mg Hydralazine HCl (Apresoline) 50 mg PO TID [facility] Last Admin: 02/13/18 17:26 Dose: 50 mg Azithromycin 250 mg/ Sodium (Chloride) 250 mls @ 167 mls/hr IVPB DAILY [facility] PRN Reason: Protocol Stop: 02/15/18 23:59 Last Admin: 02/13/18 11:09 Dose: 167 mls/hr Ceftriaxone Sodium (Rocephin 1 Gram Ivpb) 1 gm in 100 mls @ 100 mls/hr IVPB DAILY [facility] PRN Reason: Protocol Stop: 02/16/18 23:59 Last Admin: 02/13/18 09:24 Dose: 100 mls/hr Dextrose (Dextrose 5% In Water 1000 Ml) 1,000 mls @ 0 mls/hr IV .Q0M PRN; Protocol; Per Protocol PRN Reason: Hypoglycemia Protocol Insulin Detemir (Levemir) 20 unit SC Q12H [facility] Last Admin: 02/13/18 23:18 Dose: 20 units Insulin Human Regular (Humulin R Low) 0 units SC ACHS [facility] PRN Reason: Protocol Last Admin: 02/14/18 07:49 Dose: Not Given Isosorbide Mononitrate (Imdur) 60 mg PO DAILY [facility] Last Admin: 02/13/18 09:24 Dose: 60 mg Lidocaine (Lidoderm) 1 ea TD DAILY [facility] Last Admin: 02/13/18 09:23 Dose: 1 ea Metolazone (Zaroxolyn) 2.5 mg PO DAILY [facility] Metoprolol Succinate (Toprol Xl) 100 mg PO BRK [facility] Last Admin: 02/13/18 08:20 Dose: 100 mg Oxybutynin Chloride (Ditropan Tab) 10 mg PO DAILY [facility] Last Admin: 02/13/18 09:25 Dose: 10 mg Oxycodone/Acetaminophen (Percocet 5/325 Mg Tab) 1 tab PO Q6H PRN PRN Reason: Pain, moderate (4-7) Stop: 02/17/18 05:27 Pantoprazole Sodium (Protonix Ec Tab) 20 mg PO 0600 [facility] Last Admin: 02/14/18 05:58 Dose: 20 mg Pregabalin (Lyrica) 200 mg PO DAILY [facility] Last Admin: 02/13/18 09:26 Dose: 200 mg Primidone (Mysoline) 50 mg PO DAILY [facility] Last Admin: 02/13/18 09:26 Dose: 50 mg Vitamin B Complex/Vit C/Folic Acid (Nephro-Holland) 1 tab PO 0800 [facility] Last Admin: 02/13/18 08:19 Dose: 1 tab - Labs Labs: 02/14/18 06:15 02/14/18 06:15 PT 14.8 SECONDS (9.4-12.5) H 02/12/18 06:00 INR 1.28 02/12/18 06:00 - Additional Findings Additional findings: - Constitutional Appears: In Acute Distress - Head Exam Head Exam: ATRAUMATIC, NORMOCEPHALIC - Eye Exam Eye Exam: EOMI, Normal appearance, PERRL Pupil Exam: NORMAL ACCOMODATION, PERRL - ENT Exam ENT Exam: Mucous Membranes Moist, Normal Exam - Neck Exam Neck Exam: Full ROM, Normal Inspection. absent: Lymphadenopathy - Respiratory Exam Respiratory Exam: improving Breath Sounds, No Respiratory Distress - Cardiovascular Exam Cardiovascular Exam: REGULAR RHYTHM, +S1, +S2. absent: Murmur - GI/Abdominal Exam GI & Abdominal Exam: Soft, Normal Bowel Sounds. absent: Tenderness - Extremities Exam Extremities Exam: Pedal Edema. absent: Calf Tenderness - Back Exam Back Exam: muscle spasm, paraspinal tenderness. absent: CVA tenderness (L), CVA tenderness (R) - Neurological Exam Neurological Exam: Alert, Awake, CN II-XII Intact, Oriented x3 - Psychiatric Exam Psychiatric exam: Normal Affect, Normal Mood - Skin Skin Exam: Dry, Intact, Normal Color, Warm Assessment and Plan - Assessment and Plan (Free Text) Assessment: 62 y/o female with PMH of HTN, DM2, HLD CAD with stents palced, COPD, PE/ DVT, renal failure, chronic renal insufficiency, anemia, colorectal ca s/p resection , colostomy x 2, morbid obesity, obstructive sleep apnea, chronic back pain admitted for intractable back pain s/p fall at home. Found to have right sided pneumonia, SHELBI on CKD, acute on chronic respiratory failure. On BiPAP during night. Plan: Acute on chronic respiratory failure -Breathing patterned improved today -On BiPAP during sleep and high-flow during daytime as per pulmonology recs -ABG in AM still hypercapnic -Pulmonology consulted Dr Ayala -Duplex LE U/S ordered to r/o DVT Anemia -normochromic normocytic. likely 2/2 chronic disease -H/H dropped from 9/29.7 to 7.9/27 in one day -PRBCs transfusion. 1 unit given. follow H/H 8.6/28.5 this am -patient is asymptomatic -Iron 26, TIBC 192, 14% saturation -FOBT positive -h/o colon cancer s/p patial colectomy with colostomy (2013) -As per GI consult, continue medical management, endoscopy in question, will discuss with other consultants -Retic count, CEA ordered -Monitor ostomy site output for melena and blood. continue anticoagulants Pneumonia -CXR showed right multilobar pneumonia -CT chest: multifocal infiltrate right>left -continue Azithromycin and rocephin -Blood culture negative to date -procalcitonin 1.59 SHELBI on CKD stage 3 - BUN/Cr is 48/1.8 at admission. today 52/2 - Microalbumin/Cr >1700 - continue with IV lasix 40 bid - Increased hydralazine 50 tid - hold ACEI/ARB due to recent SHELBI - started iron supplements, MVI and weekly Vit D - avoid nephrotoxins/NSAIDs/ iodinated contrast - monitor I/O Chronic back pain -Likely 2/2 morbid obesity. BMI>55. immobilization -Medical management with oxycontin and dilaudid by PMD, multiple steroid injections with recurrent symptoms -L/S spine MRI ordered to r/o hematoma being on anticoagulation. Patient couldn' t fit in MRI machine. will be done outpatient -Lidoderm patch to back -Percocet 5/325 mg PO Q6H PRN pain -Thoracic/Lumbar XR: no compression fracture S/P fall -Patient felt dizzy after taking 2 dilaudid doses by mistake. no injuries reported -Head CT shows no acute intracranial hge -Per physical therapy note: patient to go for [facility] Hyperlipidemia - continue home atorvastatin - lipid panel wnl UTI - no leukocytosis - small leukocyte esterase, urine WBCs 15-20 - urine culture, blood culture x2 -Essential Tremors - continue pramidone as per PMD Hypertension - continue home meds amlodipine, hydralazine, metoprolol - patient has multiple episodes of hypertensive urgencies controlled with hydralazine, lasix DM2 -accucheck >200 -Hgb A1c 7.4 -Levimir 20u q12hr started -ISS CHF -continue metoprolol, eliquIs -cardiology on board. no further workup -Echo (08/2017) showed LVEF of 53.0%. Moderate concentric LVH -BNP 6280 -started on zaroxolyn 2.5mg BID as per nephro GI ppx:protonix heart healthy diet Head elevation Case reviewed and plan discussed with attending physician Dr. Andre <Susanna Andre - Last Filed: 02/15/18 06:40> Objective - Vital Signs/Intake and Output Vital Signs (last 24 hours): Temp Pulse Resp BP Pulse Ox 98.2 F 67 19 157/66 H 96 02/15/18 06:00 02/15/18 06:00 02/15/18 06:00 02/15/18 06:00 02/15/18 06:00 Intake and Output: 02/14/18 02/15/18 18:59 06:59 Intake Total 830 30 Output Total 200 400 Balance 630 -370 - Medications Medications: Current Medications Acetylcysteine (Acetylcysteine 20%) 3 ml INH [id number] [facility] Last Admin: 02/14/18 19:24 Dose: 3 ml Amlodipine Besylate (Norvasc) 10 mg PO DAILY [facility] Last Admin: 02/14/18 10:26 Dose: 10 mg Apixaban (Eliquis) 2.5 mg PO BID [facility] PRN Reason: Protocol Last Admin: 02/14/18 17:35 Dose: 2.5 mg Arformoterol Tartrate (Brovana) 15 mcg IH [id number] [facility] Last Admin: 02/14/18 19:24 Dose: 15 mcg Aspirin (Ecotrin) 81 mg PO DAILY [facility] Last Admin: 02/14/18 10:27 Dose: 81 mg Atorvastatin Calcium (Lipitor) 20 mg PO HS [facility] Last Admin: 02/14/18 22:27 Dose: 20 mg Budesonide (Pulmicort Respules) 0.5 mg IH [id number] [facility] Last Admin: 02/14/18 19:25 Dose: 0.5 mg Dextrose (Dextrose 50% Inj) 0 ml IV STAT PRN; Protocol PRN Reason: Hypoglycemia Protocol Ergocalciferol (Drisdol 50,000 Intl Units Cap) 1 cap PO Q7D [facility] Last Admin: 02/11/18 15:18 Dose: 1 cap Ferrous Gluconate (Fergon) 324 mg PO TID [facility] Last Admin: 02/14/18 17:35 Dose: 324 mg Furosemide (Lasix) 40 mg IVP BID [facility] Stop: 02/15/18 18:01 Last Admin: 02/14/18 17:34 Dose: 40 mg Hydralazine HCl (Apresoline) 50 mg PO TID [facility] Last Admin: 02/14/18 17:35 Dose: 50 mg Azithromycin 250 mg/ Sodium (Chloride) 250 mls @ 167 mls/hr IVPB DAILY [facility] PRN Reason: Protocol Stop: 02/15/18 23:59 Last Admin: 02/14/18 10:28 Dose: 167 mls/hr Ceftriaxone Sodium (Rocephin 1 Gram Ivpb) 1 gm in 100 mls @ 100 mls/hr IVPB DAILY [facility] PRN Reason: Protocol Stop: 02/16/18 23:59 Last Admin: 02/14/18 10:28 Dose: 100 mls/hr Dextrose (Dextrose 5% In Water 1000 Ml) 1,000 mls @ 0 mls/hr IV .Q0M PRN; Protocol; Per Protocol PRN Reason: Hypoglycemia Protocol Insulin Detemir (Levemir) 20 unit SC Q12H [facility] Last Admin: 02/15/18 00:00 Dose: Not Given Insulin Human Regular (Humulin R Low) 0 units SC ACHS [facility] PRN Reason: Protocol Last Admin: 02/14/18 23:24 Dose: Not Given Isosorbide Mononitrate (Imdur) 60 mg PO DAILY [facility] Last Admin: 02/14/18 10:26 Dose: 60 mg Lidocaine (Lidoderm) 1 ea TD DAILY [facility] Last Admin: 02/14/18 10:27 Dose: 1 ea Metolazone (Zaroxolyn) 2.5 mg PO DAILY [facility] Last Admin: 02/14/18 10:25 Dose: 2.5 mg Metoprolol Succinate (Toprol Xl) 100 mg PO BRK [facility] Last Admin: 02/14/18 08:32 Dose: 100 mg Oxybutynin Chloride (Ditropan Tab) 10 mg PO DAILY [facility] Last Admin: 02/14/18 10:26 Dose: 10 mg Oxycodone/Acetaminophen (Percocet 5/325 Mg Tab) 1 tab PO Q6H PRN PRN Reason: Pain, moderate (4-7) Stop: 02/17/18 05:27 Pantoprazole Sodium (Protonix Ec Tab) 20 mg PO 0600 [facility] Last Admin: 02/14/18 05:58 Dose: 20 mg Pregabalin (Lyrica) 200 mg PO DAILY [facility] Last Admin: 02/14/18 10:25 Dose: 200 mg Primidone (Mysoline) 50 mg PO DAILY [facility] Last Admin: 02/14/18 10:27 Dose: 50 mg Vitamin B Complex/Vit C/Folic Acid (Nephro-Holland) 1 tab PO 0800 [facility] Last Admin: 02/14/18 08:32 Dose: 1 tab - Labs Labs: 02/14/18 06:15 02/14/18 06:15 PT 14.8 SECONDS (9.4-12.5) H 02/12/18 06:00 INR 1.28 02/12/18 06:00 Attending/Attestation - Attestation I have personally seen and examined this patient.: Yes I have fully participated in the care of the patient.: Yes I have reviewed all pertinent clinical information, including history, physical exam and plan: Yes Notes (Text): 02/14/18 62 year old female with past medical history of hypertension, diabetes, CAD, COPD, DVT/PE on eliquis, CKD, colorectal cancer s/p resection and colostomy, obesity and chronic back pain who presented s/p fall and intractable back pain. Found to have acute on chronic respiratoy failure secondary to right sided pneumonia and CHF. CT chest showed right sided pneumonia. Continue with iv lasix and iv antibiotics. Cardiology is following. Likely SUMMER /COPD component as well. Continue with Bipap HS and high flow during day as per pulmonary recommendations. Continue to monitor kidney function closely while on diuretics. Nephrology is following and started metolazone. She was also found to have to acute on chronic renal failure, adrenal nodule and uncontrolled hypertension for which nephrology is following. Plasma renin/ aldosterone and metanephrin is ordered. Outpatient dexamathasone suppression test and repeat sonogram in 6 months is suggested. Patient is on percocet prn for back pain. Xray spines were reviewed. Unable to complete MRI secondary to weight. Recommended outpatient open MRI. PT evaluation was appreciated; recommended [facility]. Patient was transfused one unit prbc yesterday for anemia. Started on iv iron today by nephrology. Stool occult blood was positive. Iron studies reviewed. Anemia is likely multi-factorial. Patient is on eliquis for history of DVT/PE. Continue to monitor CBC closely. GI evaluation was appreciated; recommended possible EGD after optimization. Susanna Andre MD Hospitalist.
[2018-02-14] MEDS: Multivitamin Vitamin B Complex (Nephro-Vite) Tab PO SCH (08:32)
[2018-02-14] MEDS: Metoprolol Succinate 100 mg XL Tab PO SCH (08:32)
[2018-02-14] MEDS: metOLazone 2.5 MG TAB PO SCH (10:25)
[2018-02-14] MEDS: Lidocaine 5% Patch TD SCH (10:27)
[2018-02-14] MEDS: cefTRIAXone 1 gm 1 GM/100 ML BAG IVPB SCH (10:28)
[2018-02-14] MEDS: Azithromycin 250 MG in Sodium Chloride 0.9% 250 ML IVPB SCH (10:28)
[2018-02-14] MEDS: Insulin Detemir 100 units/ml Vial (Levemir) SC SCH (12:20)
--- NOTE | 2018-02-14 12:43 | PN ---
DATE: 02/14/2018 FOLLOWUP SUBJECTIVE: The patient received 1 unit of packed RBC transfusion. She complains of bilateral leg pain. She is short of breath, on high-flow nasal O2. PHYSICAL EXAMINATION: VITAL SIGNS: Blood pressure 166/67, heart rate 68, temperature 98.4, respirations 18. HEENT: Pale conjunctivae. CHEST: Bilateral rhonchi. HEART: S1 and S2 regular. EXTREMITIES: 1+ pitting edema. LABORATORY DATA: Hemoglobin and hematocrit 8.6 and 28.5. White count and platelet count are within normal limit. Today's SMA-7: Sodium 139, potassium 4.4, chloride 97, CO2 of 38, glucose 136, BUN 52, creatinine 2. ASSESSMENT: 1. Pneumonia involving the entire right lung. 2. Chronic renal insufficiency. 3. Coronary artery disease with history of circumflex artery stenting. 4. History of rectocele, status post resection and chemotherapy and permanent colostomy. 5. History of deep venous thrombosis and pulmonary embolism, status post inferior vena cava filter placement. RECOMMENDATIONS: Continue IV Zithromax at 250 mg daily, Brovana 15 mcg inhalation every 12 hours, aspirin 81 mg once a day, Eliquis 2.5 mg twice a day, Lasix 40 mg intravenously twice a day, Lipitor 20 mg p.o. at bedtime, Norvasc 10 mg once a day, Rocephin at 1 g intravenously daily, Toprol-XL at 100 mg once a day, Zaroxolyn 2.5 mg daily was started today. Obtain venous Doppler of the lower extremities. Gildardo Barry MD
--- NOTE | 2018-02-14 22:41 | PN ---
DATE: 02/14/2018 PULMONARY PROGRESS NOTE REFERRING PHYSICIAN: Dr. Andre. SUBJECTIVE: She is lying in the bed on noninvasive ventilation. Night was unremarkable. Much more awake and alert, complaining about some air leak under the mask. No hemoptysis, no hematemesis, no hematuria, no diarrhea. Does have leg swelling. OBJECTIVE: GENERAL: In no acute distress. VITAL SIGNS: Temperature is 98, heart rate is 82, respiratory rate is 18, blood pressure 135/64, pulse ox 97% on BiPAP with 50% oxygen. HEENT: Moist mucous membranes. NECK: Short thick neck. LUNGS: Have scattered rhonchi and crackles. HEART: S1 and S2. ABDOMEN: Soft, nontender, nondistended. Colostomy bag looks okay. EXTREMITIES: Trace edema. NEUROLOGICAL: Awake and alert. Follows simple command. MEDICATIONS: She is on Mucomyst 20% inhaled every 12 hours, hydralazine 50 mg three times a day, Zithromax 250 mg daily, Brovana inhaled twice a day, Ditropan 10 mg daily, vitamin D 50,000 units weekly, Ecotrin 81 mg daily, Eliquis 2.5 mg twice a day, ferrous gluconate 325 mg three times a day, Imdur 60 mg daily, Lasix 40 mg twice a day, Levemir 20 units subcu every 12 hours, lidocaine patch at affected area, Lipitor 20 mg daily, Lyrica 200 mg daily, primidone 50 mg daily, Nephro vitamins daily, Norvasc 10 mg daily, Percocet 5/325 one tab every 6 hours p.r.n., Protonix 20 mg daily, Pulmicort inhaled twice a day, Rocephin 1 g IV daily, Toprol XL 100 mg daily, Zaroxolyn 2.5 mg daily. LABORATORY DATA: Shows hemoglobin 8.6, hematocrit 28.5, WBC 6.6, platelet is 329. Blood gases show pH 7.35; pCO2 of 66; O2 is 90, this is on BiPAP with 50% oxygen. Sodium 139, potassium 4.4, chloride 97, bicarbonate 38, BUN 52, creatinine 2, glucose 136, calcium 8.6, AST 32, ALT 14, alk phos is 106. Albumin is 3. Microbiology: Blood culture, urine culture, there is no growth. IMPRESSION AND PLAN: Respiratory failure, [id number], requiring noninvasive ventilation; multilobar pneumonia; chronic obstructive lung disease; morbid obesity; coronary artery disease; cardiomyopathy; pulmonary embolism by history; also history of deep vein thrombosis; renal failure; anemia; history of colorectal cancer requiring resection, has been on chemotherapy, has colostomy. Pulmonary point of view, slowly improving. She is on 24-hour noninvasive ventilation, did not like high-flow nasal cannula, mask readjusted by me for air leak. Continue antibiotics. Continue bronchodilator, anticoagulation, gastric prophylaxis, pressure ulcer precautions. Follow up labs in the morning. Thank you and we will follow with you. Pamela Ayala MD
--- NOTE | 2018-02-15 01:07 | PN ---
DATE: 02/14/2018 SUBJECTIVE: Patient is seen lying in bed. She is awake. She is alert. She reports she is feeling much better. She is trying to eat lunch. She denies any pain. She still has a lot of shortness of breath. PHYSICAL EXAMINATION: GENERAL: Morbidly obese, middle-aged lady, lying in bed. VITAL SIGNS: Blood pressure 135/64, heart rate 61, respiratory rate 18, temperature 97.8. HEENT: Normocephalic, atraumatic, positive pallor. NECK: Supple, no JVD. LUNGS: Bilateral equal air entry, bilateral equal expansion. CARDIAC: S1 and S2, regular rate rhythm, no murmur, no rub. ABDOMEN: Obese, distended, soft, colostomy, bowel sounds present. EXTREMITIES: 2+ pitting edema of the lower extremities. INTAKE AND OUTPUT: 2180/2700. LABORATORY DATA: WBC 6.6, hemoglobin 8.6, hematocrit 28.5, platelets 329. Sodium 139, potassium 4.4, chloride 97, CO2 38, BUN 52, creatinine 2, glucose 136, calcium 8.6. AST 32, ALT 14, albumin 3. Cultures, no growth. CURRENT MEDICATIONS: Mucomyst, Apresoline, Zithromax, Brovana, Ditropan, ergocalciferol, Ecotrin, Eliquis, Fergon, insulin, Imdur, Lasix 40 IV b.i.d., Levemir, lidocaine, Lipitor, Lyrica, Mysoline, amlodipine 10, Protonix, Rocephin 1 g, Toprol-XL 100, Zaroxolyn 2.5 daily. ASSESSMENT: 1. Bilateral pneumonia, respiratory distress, respiratory failure. 2. Combined metabolic and respiratory acidosis. 3. Sleep apnea/chronic obstructive pulmonary disease. 4. Morbid obesity. 5. Acute kidney injury superimposed on chronic kidney disease stage III. 6. Severe anemia, gastrointestinal blood loss, stool occult positive. 7. History of rectal cancer, history of partial colectomy, colostomy. PLAN: 1. Continue to diurese, keep O's greater than I's. 2. Monitor H and H closely. 3. Patient has received 1 unit of PRBCs yesterday. 4. We will start IV Venofer. 5. GI followup. Kristine Archibald MD Psychiatric # [id number]
--- NOTE | 2018-02-15 06:18 | CP.PCM.PN ---
<Caio Stokes - Last Filed: 02/15/18 12:51> Subjective - Date & Time of Evaluation Date of Evaluation: 02/15/18 Time of Evaluation: 06:16 - Subjective Subjective: GI Fellow PGY4, No changes. Patient on BiPAP. She is have brown stool in ostomy bag. No complaints. Objective - Vital Signs/Intake and Output Vital Signs (last 24 hours): Temp Pulse Resp BP Pulse Ox 98.2 F 67 19 157/66 H 96 02/15/18 06:00 02/15/18 06:00 02/15/18 06:00 02/15/18 06:00 02/15/18 06:00 Intake and Output: 02/14/18 02/15/18 18:59 06:59 Intake Total 830 30 Output Total 200 400 Balance 630 -370 - Medications Medications: Current Medications Acetylcysteine (Acetylcysteine 20%) 3 ml INH [id number] [facility] Last Admin: 02/14/18 19:24 Dose: 3 ml Amlodipine Besylate (Norvasc) 10 mg PO DAILY [facility] Last Admin: 02/14/18 10:26 Dose: 10 mg Apixaban (Eliquis) 2.5 mg PO BID JR PRN Reason: Protocol Last Admin: 02/14/18 17:35 Dose: 2.5 mg Arformoterol Tartrate (Brovana) 15 mcg IH [id number] [facility] Last Admin: 02/14/18 19:24 Dose: 15 mcg Aspirin (Ecotrin) 81 mg PO DAILY [facility] Last Admin: 02/14/18 10:27 Dose: 81 mg Atorvastatin Calcium (Lipitor) 20 mg PO HS [facility] Last Admin: 02/14/18 22:27 Dose: 20 mg Budesonide (Pulmicort Respules) 0.5 mg IH [id number] [facility] Last Admin: 02/14/18 19:25 Dose: 0.5 mg Dextrose (Dextrose 50% Inj) 0 ml IV STAT PRN; Protocol PRN Reason: Hypoglycemia Protocol Ergocalciferol (Drisdol 50,000 Intl Units Cap) 1 cap PO Q7D [facility] Last Admin: 02/11/18 15:18 Dose: 1 cap Ferrous Gluconate (Fergon) 324 mg PO TID [facility] Last Admin: 02/14/18 17:35 Dose: 324 mg Furosemide (Lasix) 40 mg IVP BID [facility] Stop: 02/15/18 18:01 Last Admin: 02/14/18 17:34 Dose: 40 mg Hydralazine HCl (Apresoline) 50 mg PO TID [facility] Last Admin: 02/14/18 17:35 Dose: 50 mg Azithromycin 250 mg/ Sodium (Chloride) 250 mls @ 167 mls/hr IVPB DAILY [facility] PRN Reason: Protocol Stop: 02/15/18 23:59 Last Admin: 02/14/18 10:28 Dose: 167 mls/hr Ceftriaxone Sodium (Rocephin 1 Gram Ivpb) 1 gm in 100 mls @ 100 mls/hr IVPB DAILY [facility] PRN Reason: Protocol Stop: 02/16/18 23:59 Last Admin: 02/14/18 10:28 Dose: 100 mls/hr Dextrose (Dextrose 5% In Water 1000 Ml) 1,000 mls @ 0 mls/hr IV .Q0M PRN; Protocol; Per Protocol PRN Reason: Hypoglycemia Protocol Insulin Detemir (Levemir) 20 unit SC Q12H [facility] Last Admin: 02/15/18 00:00 Dose: Not Given Insulin Human Regular (Humulin R Low) 0 units SC ACHS [facility] PRN Reason: Protocol Last Admin: 02/14/18 23:24 Dose: Not Given Isosorbide Mononitrate (Imdur) 60 mg PO DAILY [facility] Last Admin: 02/14/18 10:26 Dose: 60 mg Lidocaine (Lidoderm) 1 ea TD DAILY [facility] Last Admin: 02/14/18 10:27 Dose: 1 ea Metolazone (Zaroxolyn) 2.5 mg PO DAILY [facility] Last Admin: 02/14/18 10:25 Dose: 2.5 mg Metoprolol Succinate (Toprol Xl) 100 mg PO BRK [facility] Last Admin: 02/14/18 08:32 Dose: 100 mg Oxybutynin Chloride (Ditropan Tab) 10 mg PO DAILY [facility] Last Admin: 02/14/18 10:26 Dose: 10 mg Oxycodone/Acetaminophen (Percocet 5/325 Mg Tab) 1 tab PO Q6H PRN PRN Reason: Pain, moderate (4-7) Stop: 02/17/18 05:27 Pantoprazole Sodium (Protonix Ec Tab) 20 mg PO 0600 [facility] Last Admin: 02/14/18 05:58 Dose: 20 mg Pregabalin (Lyrica) 200 mg PO DAILY [facility] Last Admin: 02/14/18 10:25 Dose: 200 mg Primidone (Mysoline) 50 mg PO DAILY [facility] Last Admin: 02/14/18 10:27 Dose: 50 mg Vitamin B Complex/Vit C/Folic Acid (Nephro-Holland) 1 tab PO 0800 [facility] Last Admin: 02/14/18 08:32 Dose: 1 tab - Labs Labs: 02/14/18 06:15 02/14/18 06:15 PT 14.8 SECONDS (9.4-12.5) H 02/12/18 06:00 INR 1.28 02/12/18 06:00 - Constitutional Appears: No Acute Distress - Head Exam Head Exam: NORMAL INSPECTION - Eye Exam Eye Exam: Normal appearance - ENT Exam ENT Exam: Mucous Membranes Moist - Respiratory Exam Respiratory Exam: Clear to Ausculation Bilateral - Cardiovascular Exam Cardiovascular Exam: REGULAR RHYTHM - GI/Abdominal Exam GI & Abdominal Exam: Soft, Normal Bowel Sounds. absent: Tenderness Additional comments: ostomy with brown stool. - Extremities Exam Extremities Exam: Normal Inspection - Neurological Exam Neurological Exam: Alert, Awake, Oriented x3 - Psychiatric Exam Psychiatric exam: Normal Affect, Normal Mood - Skin Skin Exam: Normal Color Assessment and Plan - Assessment and Plan (Free Text) Assessment: Very complex 62F with extensive history including cardiopulmonary disease, rectal CA s/p chemoradiation 2013 now presenting with fall. We were consulted for anemia with FOBT+. #Chronic anemia - Ranges from 8 to 10 over the last two years. Likely multifactorial (chronic disease, CKD). Unlikely GI bleed at this time. On OAC. #Hx of rectal CA (2013) s/p chemoradiation and colostomy - CEA 2014 normal. 4.4, elevated. PET scan 2016 - No systemic disease. #DVT/PE - On Eliquis #Acute on chronic hypercapnic respiratory failure #Pulmonary HTN #Sepsis - UTI/PNA #Morbid obesity #SUMMER #T2DM #HTN #SHELBI on CKD PLAN: -Very complex, non-compliant patient currently with acute on chronic conditions. She is at very high risk for intraoperative complication. Will need to discuss with primary, anesthesia, cardiology, pulmonology before any endoscopic procedures to be done. -CT reviewed w/o oral or IV contrast. -Optimize clinical conditions -Continue PPI -Would continue OAC consider previous b/l PE and no signs of major bleed at this time. However, she must be monitored closely. -Trend Hb daily. Monitor ostomy site output for melena, bloody. -CEA 5.4, minimally elevated compared to previous. <Emmanuel,Kovil V - Last Filed: 02/15/18 23:17> Objective - Vital Signs/Intake and Output Vital Signs (last 24 hours): Temp Pulse Resp BP Pulse Ox 98.9 F 70 18 150/60 96 02/15/18 17:52 02/15/18 18:00 02/15/18 17:52 02/15/18 17:52 02/15/18 06:00 Intake and Output: 02/15/18 02/16/18 18:59 06:59 Intake Total 600 Output Total 250 Balance 350 - Medications Medications: Current Medications Acetylcysteine (Acetylcysteine 20%) 3 ml INH [id number] [facility] Last Admin: 02/15/18 19:48 Dose: 3 ml Amlodipine Besylate (Norvasc) 10 mg PO DAILY [facility] Last Admin: 02/15/18 09:35 Dose: 10 mg Apixaban (Eliquis) 2.5 mg PO BID JR PRN Reason: Protocol Last Admin: 02/15/18 09:36 Dose: 2.5 mg Arformoterol Tartrate (Brovana) 15 mcg IH [id number] [facility] Last Admin: 02/15/18 19:48 Dose: 15 mcg Aspirin (Ecotrin) 81 mg PO DAILY [facility] Last Admin: 02/15/18 09:37 Dose: 81 mg Atorvastatin Calcium (Lipitor) 20 mg PO HS [facility] Last Admin: 02/15/18 22:25 Dose: 20 mg Budesonide (Pulmicort Respules) 0.5 mg IH [id number] [facility] Last Admin: 02/15/18 19:48 Dose: 0.5 mg Dextrose (Dextrose 50% Inj) 0 ml IV STAT PRN; Protocol PRN Reason: Hypoglycemia Protocol Ergocalciferol (Drisdol 50,000 Intl Units Cap) 1 cap PO Q7D [facility] Last Admin: 02/11/18 15:18 Dose: 1 cap Ferrous Gluconate (Fergon) 324 mg PO TID [facility] Last Admin: 02/15/18 14:29 Dose: 324 mg Hydralazine HCl (Apresoline) 100 mg PO TID [facility] Azithromycin 250 mg/ Sodium (Chloride) 250 mls @ 167 mls/hr IVPB DAILY [facility] PRN Reason: Protocol Stop: 02/15/18 23:59 Last Admin: 02/15/18 12:04 Dose: 167 mls/hr Ceftriaxone Sodium (Rocephin 1 Gram Ivpb) 1 gm in 100 mls @ 100 mls/hr IVPB DAILY [facility] PRN Reason: Protocol Stop: 02/16/18 23:59 Last Admin: 02/15/18 09:38 Dose: 100 mls/hr Dextrose (Dextrose 5% In Water 1000 Ml) 1,000 mls @ 0 mls/hr IV .Q0M PRN; Protocol; Per Protocol PRN Reason: Hypoglycemia Protocol Iron Sucrose 200 mg/ Sodium (Chloride) 110 mls @ 110 mls/hr IVPB DAILY [facility] Stop: 02/18/18 10:59 Insulin Detemir (Levemir) 20 unit SC Q12H [facility] Last Admin: 02/15/18 12:05 Dose: 20 units Insulin Human Regular (Humulin R Low) 0 units SC ACHS [facility] PRN Reason: Protocol Last Admin: 02/15/18 22:27 Dose: Not Given Isosorbide Mononitrate (Imdur) 60 mg PO DAILY [facility] Last Admin: 02/15/18 09:35 Dose: 60 mg Lidocaine (Lidoderm) 1 ea TD DAILY [facility] Last Admin: 02/15/18 09:38 Dose: 1 ea Metolazone (Zaroxolyn) 2.5 mg PO DAILY [facility] Last Admin: 02/15/18 09:36 Dose: 2.5 mg Metoprolol Succinate (Toprol Xl) 100 mg PO BRK [facility] Last Admin: 02/15/18 08:30 Dose: 100 mg Oxybutynin Chloride (Ditropan Tab) 10 mg PO DAILY [facility] Last Admin: 02/15/18 09:36 Dose: 10 mg Oxycodone/Acetaminophen (Percocet 5/325 Mg Tab) 1 tab PO Q6H PRN PRN Reason: Pain, moderate (4-7) Stop: 02/17/18 05:27 Pantoprazole Sodium (Protonix Ec Tab) 20 mg PO 0600 [facility] Last Admin: 02/15/18 07:15 Dose: Not Given Pregabalin (Lyrica) 200 mg PO DAILY [facility] Last Admin: 02/15/18 09:35 Dose: 200 mg Primidone (Mysoline) 50 mg PO DAILY [facility] Last Admin: 02/15/18 09:37 Dose: 50 mg Vitamin B Complex/Vit C/Folic Acid (Nephro-Hol[place]) 1 tab PO 0800 [facility] Last Admin: 02/15/18 08:30 Dose: 1 tab - Labs Labs: 02/15/18 08:20 02/15/18 08:20 PT 14.8 SECONDS (9.4-12.5) H 02/12/18 06:00 INR 1.28 02/12/18 06:00 Attending/Attestation - Attestation I have personally seen and examined this patient.: Yes I have fully participated in the care of the patient.: Yes I have reviewed all pertinent clinical information, including history, physical exam and plan: Yes Notes (Text): This is an addendum to GI progress report dictated by the GI Fellow.The patient was seen and examined earlier. Medical records, lab studies, imagings were reviewed. Last 24 hours events reviewed. Agreed with the above treatment plan as outlined in GI Fellow 's notes with the addition of the following Patient comfortable not in acute distress Denies any abdominal pain on examination Abdomen soft Colostomy and mucus fistula are in place Hb stable 9.2 grams would recomend EGD colonscopy when optimized Patient is high risk for any anesthesia I will discuss with the primary physician 02/15/18 23:13
[2018-02-15 07:04] LABS: ARTERIAL BLOOD GAS HCO3 36.1 mmol/L (21-28); ARTERIAL BLOOD GAS HEMOGLOBIN 9.3 g/dL (11.7-17.4); ARTERIAL BLOOD GAS O2 CAPACITY 12.9 mL/dl (16-24); ARTERIAL BLOOD GAS O2 CONTENT 12.6 ML/dl (15-23); ARTERIAL BLOOD GAS O2 SAT 97.3 % (95-98); ARTERIAL BLOOD GAS PCO2 67 mm/Hg (35-45); ARTERIAL BLOOD GAS PH 7.34 (7.35-7.45); ARTERIAL BLOOD GAS TCO2 38.2 mmol.L (22-28)
[2018-02-15] MEDS: Pantoprazole 20 mg EC Tab PO SCH (07:15)
[2018-02-15] MEDS: Arformoterol 15 mcg/2 ml Inh Sol IH SCH ×2 (08:01→19:48)
[2018-02-15] MEDS: Acetylcysteine 20% Inhal Soln (4ml) INH SCH ×2 (08:01→19:48)
[2018-02-15] MEDS: Budesonide 0.5 mg/2 ml Inhal Susp UD IH SCH ×2 (08:02→19:48)
[2018-02-15] MEDS: Metoprolol Succinate 100 mg XL Tab PO SCH (08:30)
[2018-02-15] MEDS: Multivitamin Vitamin B Complex (Nephro-Vite) Tab PO SCH (08:30)
[2018-02-15] MEDS: Insulin Reg-LOW-Coverage SC SCH ×3 (08:31→22:27)
[2018-02-15 08:37] LABS: BASO # 0.02 K/mm3 (0.0-2.0); BASO % 0.3 % (0.0-3.0); EOS # 0.4 (0.0-0.7); EOS % 6.3 % (1.5-5.0); GRAN # 4.05 (1.4-6.5); HEMOGLOBIN 9.2 g/dL (12.0-16.0); LYMPH # 1.4 (1.2-3.4); LYMPH % 22.3 % (22.0-35.0); MEAN CORPUSCULAR HGB CONC 29.8 g/dl (31.0-37.0); MEAN PLATELET VOLUME 10.9 fl (7.0-11.0); MONO # 0.4 (0.1-0.6); MONO % 6.1 % (1.0-6.0); PLATELET COUNT 318 10^3/uL (120.0-450.0); RBC 3.68 10^6/uL (3.5-6.1); RED CELL DISTRIBUTION WIDTH 15.7 % (11.5-14.5); WHITE BLOOD COUNT 6.2 10^3/ul (4.5-11.0)
[2018-02-15 08:46] LABS: ALB/GLOB RATIO 0.8 (1.1-1.8)
[2018-02-15] MEDS: metOLazone 2.5 MG TAB PO SCH (09:36)
[2018-02-15] MEDS: Lidocaine 5% Patch TD SCH (09:38)
[2018-02-15] MEDS: cefTRIAXone 1 gm 1 GM/100 ML BAG IVPB SCH (09:38)
[2018-02-15] MEDS: Azithromycin 250 MG in Sodium Chloride 0.9% 250 ML IVPB SCH (12:04)
[2018-02-15] MEDS: Insulin Detemir 100 units/ml Vial (Levemir) SC SCH ×2 (12:05)
--- NOTE | 2018-02-15 13:47 | CP.PCM.PN ---
<Zackery Naqvi - Last Filed: 02/15/18 15:29> Subjective - Date & Time of Evaluation Date of Evaluation: 02/15/18 Time of Evaluation: 05:36 - Subjective Subjective: Zackery Naqvi DO PGY-1, Internal Medicine Resident. Hospitalist Progress Note Patient seen and examined at bedside. Patient is still on BiPAP at night and high-flow during the day which improved her breathing pattern. No respiratory distress. Slept well. No acute events overnight. Patient denied CP, palpitations , headache, fever. ROS is otherwise negative Objective - Vital Signs/Intake and Output Vital Signs (last 24 hours): Temp Pulse Resp BP Pulse Ox 99 F 86 20 188/73 H 96 02/15/18 12:00 02/15/18 12:00 02/15/18 12:00 02/15/18 12:00 02/15/18 06:00 Intake and Output: 02/15/18 02/15/18 06:59 18:59 Intake Total 30 Output Total 400 Balance -370 - Medications Medications: Current Medications Acetylcysteine (Acetylcysteine 20%) 3 ml INH [id number] [facility] Last Admin: 02/15/18 08:01 Dose: 3 ml Amlodipine Besylate (Norvasc) 10 mg PO DAILY [facility] Last Admin: 02/15/18 09:35 Dose: 10 mg Apixaban (Eliquis) 2.5 mg PO BID JR PRN Reason: Protocol Last Admin: 02/15/18 09:36 Dose: 2.5 mg Arformoterol Tartrate (Brovana) 15 mcg IH [id number] [facility] Last Admin: 02/15/18 08:01 Dose: 15 mcg Aspirin (Ecotrin) 81 mg PO DAILY [facility] Last Admin: 02/15/18 09:37 Dose: 81 mg Atorvastatin Calcium (Lipitor) 20 mg PO HS [facility] Last Admin: 02/14/18 22:27 Dose: 20 mg Budesonide (Pulmicort Respules) 0.5 mg IH [id number] [facility] Last Admin: 02/15/18 08:02 Dose: 0.5 mg Dextrose (Dextrose 50% Inj) 0 ml IV STAT PRN; Protocol PRN Reason: Hypoglycemia Protocol Ergocalciferol (Drisdol 50,000 Intl Units Cap) 1 cap PO Q7D [facility] Last Admin: 02/11/18 15:18 Dose: 1 cap Ferrous Gluconate (Fergon) 324 mg PO TID [facility] Last Admin: 02/15/18 09:36 Dose: 324 mg Furosemide (Lasix) 40 mg IVP BID [facility] Stop: 02/15/18 18:01 Last Admin: 02/15/18 09:37 Dose: 40 mg Hydralazine HCl (Apresoline) 50 mg PO TID [facility] Last Admin: 02/15/18 09:35 Dose: 50 mg Azithromycin 250 mg/ Sodium (Chloride) 250 mls @ 167 mls/hr IVPB DAILY [facility] PRN Reason: Protocol Stop: 02/15/18 23:59 Last Admin: 02/15/18 12:04 Dose: 167 mls/hr Ceftriaxone Sodium (Rocephin 1 Gram Ivpb) 1 gm in 100 mls @ 100 mls/hr IVPB DAILY [facility] PRN Reason: Protocol Stop: 02/16/18 23:59 Last Admin: 02/15/18 09:38 Dose: 100 mls/hr Dextrose (Dextrose 5% In Water 1000 Ml) 1,000 mls @ 0 mls/hr IV .Q0M PRN; Protocol; Per Protocol PRN Reason: Hypoglycemia Protocol Insulin Detemir (Levemir) 20 unit SC Q12H [facility] Last Admin: 02/15/18 12:05 Dose: 20 units Insulin Human Regular (Humulin R Low) 0 units SC ACHS [facility] PRN Reason: Protocol Last Admin: 02/15/18 12:04 Dose: 2 unit Isosorbide Mononitrate (Imdur) 60 mg PO DAILY [facility] Last Admin: 02/15/18 09:35 Dose: 60 mg Lidocaine (Lidoderm) 1 ea TD DAILY [facility] Last Admin: 02/15/18 09:38 Dose: 1 ea Metolazone (Zaroxolyn) 2.5 mg PO DAILY [facility] Last Admin: 02/15/18 09:36 Dose: 2.5 mg Metoprolol Succinate (Toprol Xl) 100 mg PO BRK [facility] Last Admin: 02/15/18 08:30 Dose: 100 mg Oxybutynin Chloride (Ditropan Tab) 10 mg PO DAILY [facility] Last Admin: 02/15/18 09:36 Dose: 10 mg Oxycodone/Acetaminophen (Percocet 5/325 Mg Tab) 1 tab PO Q6H PRN PRN Reason: Pain, moderate (4-7) Stop: 02/17/18 05:27 Pantoprazole Sodium (Protonix Ec Tab) 20 mg PO 0600 [facility] Last Admin: 02/15/18 07:15 Dose: Not Given Pregabalin (Lyrica) 200 mg PO DAILY [facility] Last Admin: 02/15/18 09:35 Dose: 200 mg Primidone (Mysoline) 50 mg PO DAILY [facility] Last Admin: 02/15/18 09:37 Dose: 50 mg Vitamin B Complex/Vit C/Folic Acid (Nephro-Holland) 1 tab PO 0800 [facility] Last Admin: 02/15/18 08:30 Dose: 1 tab - Labs Labs: 02/15/18 08:20 02/15/18 08:20 PT 14.8 SECONDS (9.4-12.5) H 02/12/18 06:00 INR 1.28 02/12/18 06:00 - Additional Findings Additional findings: - Constitutional Appears: In Acute Distress - Head Exam Head Exam: ATRAUMATIC, NORMOCEPHALIC - Eye Exam Eye Exam: EOMI, Normal appearance, PERRL Pupil Exam: NORMAL ACCOMODATION, PERRL - ENT Exam ENT Exam: Mucous Membranes Moist, Normal Exam - Neck Exam Neck Exam: Full ROM, Normal Inspection. absent: Lymphadenopathy - Respiratory Exam Respiratory Exam: improving Breath Sounds, No Respiratory Distress - Cardiovascular Exam Cardiovascular Exam: REGULAR RHYTHM, +S1, +S2. absent: Murmur - GI/Abdominal Exam GI & Abdominal Exam: Soft, Normal Bowel Sounds. absent: Tenderness - Extremities Exam Extremities Exam: Pedal Edema. absent: Calf Tenderness - Back Exam Back Exam: muscle spasm, paraspinal tenderness. absent: CVA tenderness (L), CVA tenderness (R) - Neurological Exam Neurological Exam: Alert, Awake, CN II-XII Intact, Oriented x3 - Psychiatric Exam Psychiatric exam: Normal Affect, Normal Mood - Skin Skin Exam: Dry, Intact, Normal Color, Warm Assessment and Plan - Assessment and Plan (Free Text) Assessment: 62 y/o female with PMH of HTN, DM2, HLD CAD with stents palced, COPD, PE/ DVT, renal failure, chronic renal insufficiency, anemia, colorectal ca s/p resection with colostomy, morbid obesity, SUMMER, chronic back pain admitted for intractable back pain s/p fall at home. Found to have right sided pneumonia, SHELBI on CKD, acute on chronic respiratory failure, anemia with drop in H/H. On BiPAP during night and high-flow at daytime. Plan: Multilobar Pneumonia -CXR showed right multilobar pneumonia -CT chest: multifocal infiltrate right>left -continue Azithromycin and rocephin -Blood culture negative to date -procalcitonin 1.59 Acute on chronic respiratory failure -Breathing patterned improving -On BiPAP during sleep and high-flow during daytime as per pulmonology recs -ABG in AM still consistently hypercapnic -Pulmonology consulted Dr Ayala: continue abx and bronchodilator -Duplex LE U/S ordered to r/o DVT Anemia -normochromic normocytic. likely 2/2 chronic disease -H/H dropped from 9/29.7 to 7.9/27 in one day -PRBCs transfusion. 1 unit given. follow H/H 9.2/30.9 today -patient is asymptomatic -Iron 26, TIBC 192, 14% saturation -Given Venofir 200 mg -FOBT positive -h/o colon cancer s/p patial colectomy with colostomy (2013) -As per GI consult, continue medical management, endoscopy in question, will discuss with other consultants -Retic count 0.85 -CEA 5.4 -Monitor ostomy site output for melena and blood. continue anticoagulants SHELBI on CKD stage 3 - BUN/Cr is 48/1.8 at admission. today 52/2 - Microalbumin/Cr >1700 - continue with IV lasix 40 bid - Increased hydralazine 50 tid - hold ACEI/ARB due to recent SHELBI - started iron supplements, MVI and weekly Vit D - avoid nephrotoxins/NSAIDs/ iodinated contrast - monitor I/O Chronic back pain -Likely 2/2 morbid obesity. BMI>55. immobilization -Medical management with oxycontin and dilaudid by PMD, multiple steroid injections with recurrent symptoms -L/S spine MRI ordered to r/o hematoma being on anticoagulation. Patient couldn' t fit in MRI machine. will be done outpatient -Lidoderm patch to back -Percocet 5/325 mg PO Q6H PRN pain -Thoracic/Lumbar XR: no compression fracture S/P fall -Patient felt dizzy after taking 2 dilaudid doses by mistake. no injuries reported -Head CT shows no acute intracranial hge -Per physical therapy note: patient to go for [facility] Hyperlipidemia - continue home atorvastatin - lipid panel wnl UTI - no leukocytosis - small leukocyte esterase, urine WBCs 15-20 - urine culture, blood culture x2 -Essential Tremors - continue pramidone as per PMD Hypertension - continue home meds amlodipine, hydralazine, metoprolol - patient has multiple episodes of hypertensive urgencies controlled with hydralazine, lasix DM2 -accucheck -Hgb A1c 7.4 -Levimir 20u q12hr started -ISS CHF -continue metoprolol, eliquis -cardiology on board. Duplex LE U/S done. pending read -Echo (08/2017) showed LVEF of 53.0%. Moderate concentric LVH -BNP 6280 -started on zaroxolyn 2.5mg BID as per nephro GI ppx:protonix heart healthy diet Head elevation Case reviewed and plan discussed with attending physician Dr. Andre <Susanna Andre - Last Filed: 02/15/18 18:40> Objective - Vital Signs/Intake and Output Vital Signs (last 24 hours): Temp Pulse Resp BP Pulse Ox 98.9 F 70 18 150/60 96 02/15/18 17:52 02/15/18 17:52 02/15/18 17:52 02/15/18 17:52 02/15/18 06:00 Intake and Output: 02/15/18 02/15/18 06:59 18:59 Intake Total 30 Output Total 400 Balance -370 - Medications Medications: Current Medications Acetylcysteine (Acetylcysteine 20%) 3 ml INH [id number] [facility] Last Admin: 02/15/18 08:01 Dose: 3 ml Amlodipine Besylate (Norvasc) 10 mg PO DAILY [facility] Last Admin: 02/15/18 09:35 Dose: 10 mg Apixaban (Eliquis) 2.5 mg PO BID [facility] PRN Reason: Protocol Last Admin: 02/15/18 09:36 Dose: 2.5 mg Arformoterol Tartrate (Brovana) 15 mcg IH [id number] [facility] Last Admin: 02/15/18 08:01 Dose: 15 mcg Aspirin (Ecotrin) 81 mg PO DAILY [facility] Last Admin: 02/15/18 09:37 Dose: 81 mg Atorvastatin Calcium (Lipitor) 20 mg PO HS [facility] Last Admin: 02/14/18 22:27 Dose: 20 mg Budesonide (Pulmicort Respules) 0.5 mg IH [id number] [facility] Last Admin: 02/15/18 08:02 Dose: 0.5 mg Dextrose (Dextrose 50% Inj) 0 ml IV STAT PRN; Protocol PRN Reason: Hypoglycemia Protocol Ergocalciferol (Drisdol 50,000 Intl Units Cap) 1 cap PO Q7D [facility] Last Admin: 02/11/18 15:18 Dose: 1 cap Ferrous Gluconate (Fergon) 324 mg PO TID [facility] Last Admin: 02/15/18 14:29 Dose: 324 mg Hydralazine HCl (Apresoline) 100 mg PO TID [facility] Azithromycin 250 mg/ Sodium (Chloride) 250 mls @ 167 mls/hr IVPB DAILY [facility] PRN Reason: Protocol Stop: 02/15/18 23:59 Last Admin: 02/15/18 12:04 Dose: 167 mls/hr Ceftriaxone Sodium (Rocephin 1 Gram Ivpb) 1 gm in 100 mls @ 100 mls/hr IVPB DAILY [facility] PRN Reason: Protocol Stop: 02/16/18 23:59 Last Admin: 02/15/18 09:38 Dose: 100 mls/hr Dextrose (Dextrose 5% In Water 1000 Ml) 1,000 mls @ 0 mls/hr IV .Q0M PRN; Protocol; Per Protocol PRN Reason: Hypoglycemia Protocol Iron Sucrose 200 mg/ Sodium (Chloride) 110 mls @ 110 mls/hr IVPB DAILY [facility] Stop: 02/18/18 10:59 Insulin Detemir (Levemir) 20 unit SC Q12H [facility] Last Admin: 02/15/18 12:05 Dose: 20 units Insulin Human Regular (Humulin R Low) 0 units SC ACHS [facility] PRN Reason: Protocol Last Admin: 02/15/18 12:04 Dose: 2 unit Isosorbide Mononitrate (Imdur) 60 mg PO DAILY [facility] Last Admin: 02/15/18 09:35 Dose: 60 mg Lidocaine (Lidoderm) 1 ea TD DAILY [facility] Last Admin: 02/15/18 09:38 Dose: 1 ea Metolazone (Zaroxolyn) 2.5 mg PO DAILY [facility] Last Admin: 09/14/18 09:36 Dose: 2.5 mg Metoprolol Succinate (Toprol Xl) 100 mg PO BRK [facility] Last Admin: 02/15/18 08:30 Dose: 100 mg Oxybutynin Chloride (Ditropan Tab) 10 mg PO DAILY [facility] Last Admin: 02/15/18 09:36 Dose: 10 mg Oxycodone/Acetaminophen (Percocet 5/325 Mg Tab) 1 tab PO Q6H PRN PRN Reason: Pain, moderate (4-7) Stop: 02/17/18 05:27 Pantoprazole Sodium (Protonix Ec Tab) 20 mg PO 0600 [facility] Last Admin: 02/15/18 07:15 Dose: Not Given Pregabalin (Lyrica) 200 mg PO DAILY [facility] Last Admin: 02/15/18 09:35 Dose: 200 mg Primidone (Mysoline) 50 mg PO DAILY [facility] Last Admin: 02/15/18 09:37 Dose: 50 mg Vitamin B Complex/Vit C/Folic Acid (Nephro-Holland) 1 tab PO 0800 [facility] Last Admin: 02/15/18 08:30 Dose: 1 tab - Labs Labs: 02/15/18 08:20 02/15/18 08:20 PT 14.8 SECONDS (9.4-12.5) H 02/12/18 06:00 INR 1.28 02/12/18 06:00 Attending/Attestation - Attestation I have personally seen and examined this patient.: Yes I have fully participated in the care of the patient.: Yes I have reviewed all pertinent clinical information, including history, physical exam and plan: Yes Notes (Text): 02/15/18 62 year old female with past medical history of hypertension, diabetes, CAD, COPD, DVT/PE on eliquis, CKD, colorectal cancer s/p resection and colostomy, obesity and chronic back pain who presented s/p fall and intractable back pain. Found to have acute on chronic respiratory failure secondary to right sided pneumonia and CHF. CT chest showed right sided pneumonia. Continue with iv lasix and iv antibiotics. Cardiology is following. Likely SUMMER /COPD component as well. Continue with Bipap HS and high flow during day as per pulmonary recommendations. Continue to monitor kidney function closely while on diuretics. Nephrology is following and started metolazone. She was also found to have to acute on chronic renal failure, adrenal nodule and uncontrolled hypertension for which nephrology is following. Plasma renin/ aldosterone and metanephrin is ordered. Outpatient dexamathasone suppression test and repeat sonogram in 6 months is suggested. Patient is on percocet prn for back pain. Xray spines were reviewed. Unable to complete MRI secondary to weight. Recommended outpatient open MRI. PT evaluation was appreciated; recommended [facility]. Patient was transfused one unit prbc earlier this week for anemia. Started on iv iron by nephrology. Stool occult blood was positive. Iron studies reviewed. Anemia is likely multi-factorial. Patient is on eliquis for history of DVT/PE. Continue to monitor CBC closely. GI evaluation was appreciated; recommended possible EGD after optimization. Susanna Andre MD Hospitalist.
--- NOTE | 2018-02-15 17:07 | PN ---
DATE: 02/15/2018 SUBJECTIVE: The patient's shortness of breath has slightly improved. She denies retrosternal chest pain. PHYSICAL EXAMINATION VITAL SIGNS: Blood pressure 188/73, heart rate 86, temperature of 99, and respirations 20. HEENT: Pale conjunctivae. CHEST: Minimal rhonchi. HEART: S1 and S2, regular. ABDOMEN: Soft. EXTREMITIES: Trace leg edema. LABORATORY DATA: Today's SMA-7, sodium 137, potassium 4.2, chloride 97, CO2 of 38. Glucose 122. BUN 64, creatinine 1.9. Today's hemoglobin and hematocrit 9.2 and 30.9, white count and platelet count are within normal limit. Venous Doppler of the lower extremity was performed, the report is still pending. ASSESSMENT: 1. Bilateral pneumonia. 2. Coronary artery disease with history of circumflex artery stenting in the past. 3. History of pulmonary embolism and deep venous thrombosis in the past, status post inferior vena cava filter, rule out recurrent deep venous thrombosis. 4. History of rectal cancer, status post resection, permanent colostomy. 5. Anemia, status post packed red blood cell transfusion. RECOMMENDATIONS: Continue hydralazine 50 mg t.i.d., Zithromax 250 mg intravenously daily, Brovana 15 mcg inhalation every 12 hours, aspirin 81 mg once a day, Eliquis 2.5 mg once a day, Lasix 40 mg intravenously twice a day, Imdur 60 mg once a day, Lipitor 20 mg daily, Lyrica 200 mg daily, Mysoline 50 mg p.o. once a day, oxycodone 1 tablet every 6 hours p.r.n., Norvasc 10 mg once a day, Rocephin 1 g intravenously daily, Toprol-XL 100 mg once a day, Zaroxolyn 2.5 mg once a day. Case was discussed with Dr. Andre. GI endoscopy was recommended. I will follow the venous Doppler of the lower extremity study. Gildardo Barry MD
--- NOTE | 2018-02-15 17:24 | US ---
HISTORY: Leg pain and swelling. Evaluate for DVT PHYSICIAN(S): Raleigh Arevalo MD. TECHNIQUE: Duplex sonography and color-flow Doppler with graded compression were used to evaluate the deep venous systems of both lower extremities. FINDINGS: The exam is limited by body habitus and edema The visualized deep venous systems of both lower extremities are sonographically normal and compressible. Normal wave forms and augmentation are seen. There is no sonographic evidence for deep venous thrombosis in the visualized segments of both lower extremities. There is a 2 x 3 cm fluid collection in the right popliteal fossa consistent with a Godinez's cyst IMPRESSION: No sonographic evidence for deep venous thrombosis in the visualized segments of both lower extremities.
--- NOTE | 2018-02-15 20:21 | PN ---
DATE: 02/15/2018 SUBJECTIVE: The patient is seen lying in bed. She is awake, she is alert. She reports her breathing is better. She complains of burning in the urine. She denies any chest pain. She denies any palpitations. PHYSICAL EXAMINATION: GENERAL: Obese, elderly lady, lying in bed. VITAL SIGNS: Blood pressure 170/80, heart rate 80, respiratory rate 20, temperature 99, T-max is 99. HEENT: Normocephalic, atraumatic, positive pallor. NECK: Supple, no JVD. LUNGS: Bilateral rhonchi, bilateral equal air entry, no rales appreciated anteriorly. CARDIAC: S1 and S2, regular rate and rhythm, no murmur, no rub. ABDOMEN: Obese, distended, soft, nontender, and bowel sounds present. EXTREMITIES: 1+ pitting edema of the lower extremities. INTAKE AND OUTPUT: 860/600 LABORATORY DATA: WBC 6.2, hemoglobin 9.2, hematocrit 30.9, and platelets 318. Sodium 137, potassium 4.2, chloride 97, CO2 of 38. BUN 54, creatinine 1.9. Glucose 122. Calcium 9, albumin 3. Blood cultures no growth. Urine culture, multiple species. CURRENT MEDICATIONS: Mucomyst. Apresoline 50 t.i.d., azithromycin 250, Brovana, Ditropan, Drisdol, Ecotrin, Eliquis 2.5 b.i.d., Fergon, Imdur, Lasix 40 intravenously every 12 hours, Levemir, lidocaine, Lipitor, Lyrica, Mysoline, Nephro-Holland, amlodipine, Percocet, Protonix, Toprol-XL, and Zaroxolyn. ASSESSMENT AND PLAN: 1. Acute kidney injury superimposed on chronic kidney disease stage III. 2. Severe uncontrolled hypertension. 3. Bilateral pneumonia. 4. Sleep apnea/chronic obstructive pulmonary disease/respiratory failure. 5. Severe anemia, stool occult positive. 6. History of rectal cancer. 7. Morbid obesity. 8. Burning in the urine. PLAN: 1. Continue diuresis, continue the Lasix and Zaroxolyn. Keep O's greater than I's. 2. Blood pressure is suboptimally controlled, currently the patient is on amlodipine 10 mg daily, Toprol-XL 100, Imdur 60, hydralazine 50 t.i.d. At this time, I will increase the hydralazine to 100 t.i.d. 3. Continue IV iron supplementation. 4. GI followup. 5. Monitor blood pressure. 6. Monitor urine output. 7. Repeat urinalysis and urine culture. Kristine Archibald MD
--- NOTE | 2018-02-15 22:24 | PN ---
DATE: 02/15/2018 PULMONARY PROGRESS NOTE REFERRING PHYSICIAN: Dr. Andre SUBJECTIVE: She is lying in the bed, head at 45 degrees, on nasal cannula, feels much better, still most of the time using noninvasive ventilation complaining about pressure point at nasal bridge and cheeks. Cough is better. No nausea, no vomiting, no diarrhea. Trace leg swelling. OBJECTIVE: GENERAL: In no acute distress. VITAL SIGNS: Temperature is 99, heart rate 80, respiratory rate is 20, blood pressure 170/80, pulse ox 96% on nasal cannula. HEENT: Moist mucous membrane. Crowded airway. Mallampati score is 4. NECK: Supple. No JVD. LUNGS: Have fair airflow with rhonchi. HEART: S1 and S2. ABDOMEN: Soft, nontender, no organomegaly. EXTREMITIES: Does have edema. NEUROLOGIC: Awake and alert. Follows simple command. MEDICATIONS: She is on Mucomyst inhaled twice a day, hydralazine 100 mg three times a day, Zithromax 250 mg daily, Brovana inhaled twice a day, Ditropan 10 mg daily, vitamin D 50,000 units weekly, Ecotrin 81 mg daily, Eliquis 2.5 mg twice a day, ferrous gluconate 325 mg three times a day, insulin coverage, Imdur 60 mg daily, iron 200 mg daily, Lasix 40 mg twice a day, Levemir 20 units subcu twice a day, Lidoderm patch to affected area, Lipitor 20 mg at bedtime, Lyrica 200 mg daily, primidone 50 mg daily, Nephro vitamins daily, Norvasc 10 mg daily, Percocet 5/325 1 tablet every 6 hours p.r.n., Protonix 20 mg daily, Pulmicort inhaled twice a day, Rocephin 1 g IV daily, Toprol XL 100 mg daily, Zaroxolyn 2.5 mg daily. LABORATORY DATA: Shows hemoglobin 9.2, hematocrit 30.9, WBC 6.2, platelet count is 318. Blood gases this morning showed pH 7.34, pCO2 67, O2 87, this is on BiPAP with 50% oxygen. Sodium 137, potassium 4.2, chloride 97, bicarbonate 38, BUN 54, creatinine 1.9, calcium is 9.0, AST 27, ALT 14, alk phos is 110. Albumin is 3.0. Carcinoembryonic antigen is 5.4. Microbiology, blood culture, urine culture is unremarkable. Had extremity ultrasound done, report is still pending. IMPRESSION AND PLAN: [id number] respiratory failure, hypoventilation syndrome, multilobar pneumonia, chronic lung disease, morbid obesity, coronary artery disease, cardiomyopathy, pulmonary embolism which is a also history of deep vein thrombosis, renal failure is slowly improving, history of colorectal cancer requiring resection and chemotherapy, has a colostomy bag. Case discussed with respiratory therapist. Requested to get entire face mask to change the trigger points, may continue supplemental oxygen with nasal cannula during the daytime. Continue antibiotics, bronchodilator, gastric prophylaxis, deep vein thrombosis prophylaxis. May not need to do a arterial blood gases on a daily basis. Thank you and we will follow with you. Pamela Ayala MD
[2018-02-16] MEDS: Oxycodone/Acetaminophen 5/325 mg Tab PO PRN ×2 (01:14→19:02)
[2018-02-16] MEDS: Pantoprazole 20 mg EC Tab PO SCH (06:13)
[2018-02-16] MEDS: Insulin Detemir 100 units/ml Vial (Levemir) SC SCH ×2 (06:18→14:00)
--- NOTE | 2018-02-16 06:36 | CP.PCM.PN ---
<Zackery Naqvi - Last Filed: 02/16/18 18:32> Subjective - Date & Time of Evaluation Date of Evaluation: 02/16/18 Time of Evaluation: 05:36 - Subjective Subjective: Zackery Naqvi DO PGY-1, Internal Medicine Resident. Hospitalist Progress Note Patient seen and examined at bedside. Patient is still on BiPAP at day and night , improved her breathing pattern. No respiratory distress. Slept well. No acute events overnight. Patient denied CP, palpitations, headache, fever. ROS is otherwise negative Objective - Vital Signs/Intake and Output Vital Signs (last 24 hours): Temp Pulse Resp BP Pulse Ox 98.9 F 70 18 150/60 96 02/15/18 17:52 02/16/18 00:01 02/15/18 17:52 02/15/18 17:52 02/15/18 06:00 Intake and Output: 02/15/18 02/16/18 18:59 06:59 Intake Total 600 300 Output Total 250 Balance 350 300 - Medications Medications: Current Medications Acetylcysteine (Acetylcysteine 20%) 3 ml INH [id number] [facility] [place] Last Admin: 02/15/18 19:48 Dose: 3 ml Amlodipine Besylate (Norvasc) 10 mg PO DAILY JR Last Admin: 02/15/18 09:35 Dose: 10 mg Apixaban (Eliquis) 2.5 mg PO BID JR PRN Reason: Protocol Last Admin: 02/15/18 09:36 Dose: 2.5 mg Arformoterol Tartrate (Brovana) 15 mcg IH [id number] [facility] [place] Last Admin: 02/15/18 19:48 Dose: 15 mcg Aspirin (Ecotrin) 81 mg PO DAILY JR Last Admin: 02/15/18 09:37 Dose: 81 mg Atorvastatin Calcium (Lipitor) 20 mg PO HS JR Last Admin: 02/15/18 22:25 Dose: 20 mg Budesonide (Pulmicort Respules) 0.5 mg IH [id number] [facility] [place] Last Admin: 02/15/18 19:48 Dose: 0.5 mg Dextrose (Dextrose 50% Inj) 0 ml IV STAT PRN; Protocol PRN Reason: Hypoglycemia Protocol Ergocalciferol (Drisdol 50,000 Intl Units Cap) 1 cap PO Q7D [facility] [place] Last Admin: 02/11/18 15:18 Dose: 1 cap Ferrous Gluconate (Fergon) 324 mg PO TID [facility] [place] Last Admin: 02/15/18 14:29 Dose: 324 mg Hydralazine HCl (Apresoline) 100 mg PO TID [facility] [place] Ceftriaxone Sodium (Rocephin 1 Gram Ivpb) 1 gm in 100 mls @ 100 mls/hr IVPB DAILY [facility] [place] PRN Reason: Protocol Stop: 02/16/18 23:59 Last Admin: 02/15/18 09:38 Dose: 100 mls/hr Dextrose (Dextrose 5% In Water 1000 Ml) 1,000 mls @ 0 mls/hr IV .Q0M PRN; Protocol; Per Protocol PRN Reason: Hypoglycemia Protocol Iron Sucrose 200 mg/ Sodium (Chloride) 110 mls @ 110 mls/hr IVPB DAILY [facility] [place] Stop: 02/18/18 10:59 Insulin Detemir (Levemir) 20 unit SC Q12H [facility] [place] Last Admin: 02/16/18 06:18 Dose: Not Given Insulin Human Regular (Humulin R Low) 0 units SC ACHS [facility] [place] PRN Reason: Protocol Last Admin: 02/15/18 22:27 Dose: Not Given Isosorbide Mononitrate (Imdur) 60 mg PO DAILY [facility] [place] Last Admin: 02/15/18 09:35 Dose: 60 mg Lidocaine (Lidoderm) 1 ea TD DAILY [facility] [place] Last Admin: 02/15/18 09:38 Dose: 1 ea Metolazone (Zaroxolyn) 2.5 mg PO DAILY [facility] [place] Last Admin: 02/15/18 09:36 Dose: 2.5 mg Metoprolol Succinate (Toprol Xl) 100 mg PO BRK [facility] [place] Last Admin: 02/15/18 08:30 Dose: 100 mg Oxybutynin Chloride (Ditropan Tab) 10 mg PO DAILY [facility] [place] Last Admin: 02/15/18 09:36 Dose: 10 mg Oxycodone/Acetaminophen (Percocet 5/325 Mg Tab) 1 tab PO Q6H PRN PRN Reason: Pain, moderate (4-7) Stop: 02/17/18 05:27 Last Admin: 02/16/18 01:14 Dose: 1 tab Pantoprazole Sodium (Protonix Ec Tab) 20 mg PO 0600 [facility] [place] Last Admin: 02/16/18 06:13 Dose: 20 mg Pregabalin (Lyrica) 200 mg PO DAILY [facility] [place] Last Admin: 02/15/18 09:35 Dose: 200 mg Primidone (Mysoline) 50 mg PO DAILY [facility] [place] Last Admin: 02/15/18 09:37 Dose: 50 mg Vitamin B Complex/Vit C/Folic Acid (Nephro-Holland) 1 tab PO 0800 [facility] [place] Last Admin: 02/15/18 08:30 Dose: 1 tab - Labs Labs: 02/15/18 08:20 02/15/18 08:20 PT 14.8 SECONDS (9.4-12.5) H 02/12/18 06:00 INR 1.28 02/12/18 06:00 - Additional Findings Additional findings: - Constitutional Appears: In Acute Distress - Head Exam Head Exam: ATRAUMATIC, NORMOCEPHALIC - Eye Exam Eye Exam: EOMI, Normal appearance, PERRL Pupil Exam: NORMAL ACCOMODATION, PERRL - ENT Exam ENT Exam: Mucous Membranes Moist, Normal Exam - Neck Exam Neck Exam: Full ROM, Normal Inspection. absent: Lymphadenopathy - Respiratory Exam Respiratory Exam: improving Breath Sounds, No Respiratory Distress - Cardiovascular Exam Cardiovascular Exam: REGULAR RHYTHM, +S1, +S2. absent: Murmur - GI/Abdominal Exam GI & Abdominal Exam: Soft, Normal Bowel Sounds. absent: Tenderness - Extremities Exam Extremities Exam: Pedal Edema. absent: Calf Tenderness - Back Exam Back Exam: muscle spasm, paraspinal tenderness. absent: CVA tenderness (L), CVA tenderness (R) - Neurological Exam Neurological Exam: Alert, Awake, CN II-XII Intact, Oriented x3 - Psychiatric Exam Psychiatric exam: Normal Affect, Normal Mood - Skin Skin Exam: Dry, Intact, Normal Color, Warm Assessment and Plan - Assessment and Plan (Free Text) Assessment: 62 y/o female with PMH of HTN, DM2, HLD CAD with stents palced, COPD, PE/ DVT, renal failure, chronic renal insufficiency, anemia, colorectal ca s/p resection with colostomy, morbid obesity, SUMMER, chronic back pain admitted for intractable back pain s/p fall at home. Found to have right sided pneumonia, SHELBI on CKD, acute on chronic respiratory failure, anemia with drop in H/H. On BiPAP intermittently during night and daytime. Plan: Multilobar Pneumonia -CXR showed right multilobar pneumonia -CT chest: multifocal infiltrate right>left -continue Azithromycin and rocephin -Blood culture negative to date -procalcitonin 1.59 on 02/13 Acute on chronic respiratory failure -Breathing patterned improving -On BiPAP during sleep and high-flow during daytime as per pulmonology recs -ABG in AM still consistently hypercapnic -Pulmonology consulted Dr Ayala: continue abx and bronchodilator -Duplex LE U/S ordered to r/o DVT Anemia -normochromic normocytic. likely 2/2 chronic disease -H/H dropped from 29.7 to 7.9/27 in one day -PRBCs transfusion. 1 unit given. follow H/H 9.2/30.9 today -patient is asymptomatic -Iron 26, TIBC 192, 14% saturation -Given Venofir 200 mg -FOBT positive -h/o colon cancer s/p patial colectomy with colostomy (2013) -As per GI consult, continue medical management, endoscopy in question, will discuss with other consultants -Retic count 0.85 -CEA 5.4 -Monitor ostomy site output for melena and blood. continue anticoagulants SHELBI on CKD stage 3 - BUN/Cr is 48/1.8 at admission. remains elevated - Microalbumin/Cr >1700 - continue with IV lasix 40 QD - Increased hydralazine 50 tid - hold ACEI/ARB due to recent SHELBI - started iron supplements, MVI and weekly Vit D - avoid nephrotoxins/NSAIDs/ iodinated contrast Chronic back pain -Likely 2/2 morbid obesity. BMI>55. immobilization -Medical management with oxycontin and dilaudid by PMD, multiple steroid injections with recurrent symptoms -L/S spine MRI ordered to r/o hematoma being on anticoagulation. Patient couldn' t fit in MRI machine. will be done outpatient -Lidoderm patch to back -Percocet 5/325 mg PO Q6H PRN pain -Thoracic/Lumbar XR: no compression fracture S/P fall -Patient felt dizzy after taking 2 dilaudid doses by mistake. no injuries reported -Head CT shows no acute intracranial hge -Per physical therapy note: patient to go for [facility]. Patient prefers [facility] in [facility] otherwise home with PT service Hyperlipidemia - continue home atorvastatin - lipid panel wnl UTI - no leukocytosis - small leukocyte esterase, urine WBCs 15-20 - urine culture, blood culture x2 -Essential Tremors - continue pramidone as per PMD Hypertension - continue home meds amlodipine, hydralazine, metoprolol - patient has multiple episodes of hypertensive urgencies controlled with hydralazine, lasix DM2 -accucheck -Hgb A1c 7.4 -Levimir 20u q12hr started -ISS CHF -continue metoprolol, eliquis -cardiology on board. -Duplex LE U/S: negative for DVT, 2x3 cm fluid collection in R popliteal fossa consistent with Godinez's cyst -Echo (08/2017) showed LVEF of 53.0%. Moderate concentric LVH -BNP 6280 -started on zaroxolyn 2.5mg BID as per nephro -continue I/O, +balance of 250-650 GI ppx:protonix heart healthy diet Head elevation Case reviewed and plan discussed with attending physician Dr. Andre <Susanna Andre - Last Filed: 02/17/18 06:43> Objective - Vital Signs/Intake and Output Vital Signs (last 24 hours): Temp Pulse Resp BP Pulse Ox 98.0 F 77 18 180/65 H 97 02/17/18 06:00 02/17/18 06:00 02/17/18 06:00 02/17/18 06:00 02/17/18 06:00 Intake and Output: 02/16/18 02/17/18 18:59 06:59 Intake Total 720 Output Total 2 Balance 718 - Medications Medications: Current Medications Acetylcysteine (Acetylcysteine 20%) 3 ml INH [id number] [facility] Last Admin: 02/16/18 19:40 Dose: 3 ml Amlodipine Besylate (Norvasc) 10 mg PO DAILY [facility] [place] Last Admin: 02/16/18 10:03 Dose: 10 mg Apixaban (Eliquis) 2.5 mg PO BID [facility] PRN Reason: Protocol Last Admin: 02/16/18 18:05 Dose: 2.5 mg Arformoterol Tartrate (Brovana) 15 mcg IH [id number] [facility] [place] Last Admin: 02/16/18 19:40 Dose: 15 mcg Aspirin (Ecotrin) 81 mg PO DAILY [facility] [place] Last Admin: 02/16/18 10:02 Dose: 81 mg Atorvastatin Calcium (Lipitor) 20 mg PO HS [facility] [place] Last Admin: 02/16/18 22:24 Dose: 20 mg Budesonide (Pulmicort Respules) 0.5 mg IH [id number] [facility] [place] Last Admin: 02/16/18 19:40 Dose: 0.5 mg Dextrose (Dextrose 50% Inj) 0 ml IV STAT PRN; Protocol PRN Reason: Hypoglycemia Protocol Ergocalciferol (Drisdol 50,000 Intl Units Cap) 1 cap PO Q7D [facility] [place] Last Admin: 02/11/18 15:18 Dose: 1 cap Ferrous Gluconate (Fergon) 324 mg PO TID [facility] [place] Last Admin: 02/16/18 18:05 Dose: 324 mg Furosemide (Lasix) 40 mg PO DAILY [facility] [place] Last Admin: 02/16/18 10:02 Dose: 40 mg Hydralazine HCl (Apresoline) 100 mg PO TID [facility] [place] Last Admin: 02/16/18 18:04 Dose: 100 mg Dextrose (Dextrose 5% In Water 1000 Ml) 1,000 mls @ 0 mls/hr IV .Q0M PRN; Protocol; Per Protocol PRN Reason: Hypoglycemia Protocol Iron Sucrose 200 mg/ Sodium (Chloride) 110 mls @ 110 mls/hr IVPB DAILY [facility] [place] Stop: 02/18/18 10:59 Last Admin: 02/16/18 10:04 Dose: 110 mls/hr Insulin Detemir (Levemir) 20 unit SC Q12H [facility] [place] Last Admin: 02/17/18 00:39 Dose: 20 units Insulin Human Regular (Humulin R Low) 0 units SC ACHS [facility] [place] PRN Reason: Protocol Last Admin: 02/16/18 22:21 Dose: Not Given Isosorbide Mononitrate (Imdur) 60 mg PO DAILY [facility] [place] Last Admin: 02/16/18 10:02 Dose: 60 mg Lidocaine (Lidoderm) 1 ea TD DAILY [facility] [place] Last Admin: 02/16/18 09:57 Dose: 1 ea Metolazone (Zaroxolyn) 2.5 mg PO DAILY [facility] [place] Last Admin: 02/16/18 10:04 Dose: 2.5 mg Metoprolol Succinate (Toprol Xl) 100 mg PO BRK [facility] [place] Last Admin: 02/16/18 08:15 Dose: 100 mg Oxybutynin Chloride (Ditropan Tab) 10 mg PO DAILY [facility] [place] Last Admin: 02/16/18 10:02 Dose: 10 mg Pantoprazole Sodium (Protonix Ec Tab) 20 mg PO 0600 [facility] [place] Last Admin: 02/17/18 05:42 Dose: 20 mg Pregabalin (Lyrica) 200 mg PO DAILY [facility] [place] Last Admin: 02/16/18 10:03 Dose: 200 mg Primidone (Mysoline) 50 mg PO DAILY [facility] [place] Last Admin: 02/16/18 10:03 Dose: 50 mg Vitamin B Complex/Vit C/Folic Acid (Nephro-Holland) 1 tab PO 0800 [facility] [place] Last Admin: 02/16/18 08:14 Dose: 1 tab - Labs Labs: 02/16/18 06:00 02/16/18 06:00 PT 14.8 SECONDS (9.4-12.5) H 02/12/18 06:00 INR 1.28 02/12/18 06:00 Attending/Attestation - Attestation I have personally seen and examined this patient.: Yes I have fully participated in the care of the patient.: Yes I have reviewed all pertinent clinical information, including history, physical exam and plan: Yes Notes (Text): 02/16/18 62 year old female with past medical history of hypertension, diabetes, CAD, COPD, DVT/PE on eliquis, CKD, colorectal cancer s/p resection and colostomy, obesity and chronic back pain who presented s/p fall and intractable back pain. Found to have acute on chronic respiratory failure secondary to right sided pneumonia and CHF. CT chest showed right sided pneumonia. Likely SUMMER/COPD component as well. Respiratory symptoms are slowly improving on iv lasix and iv antibiotics. Cardiology and pulmonary are following. Continue with Bipap HS as per pulmonary recommendations. Continue to monitor kidney function closely while on diuretics. Nephrology is following and started metolazone. She was also found to have to acute on chronic renal failure, adrenal nodule and uncontrolled hypertension for which nephrology is following. Plasma renin/ aldosterone and metanephrin is ordered. Outpatient dexamathasone suppression test and repeat sonogram in 6 months is suggested. Patient is on percocet prn for back pain. Xray spines were reviewed. Unable to complete MRI secondary to weight. Recommended outpatient open MRI. PT evaluation was appreciated; recommended [facility]. However patient prefers either TCU or home with services. Will request PT follow up. Patient was transfused one unit prbc earlier this week for anemia. Started on iv iron by nephrology. Stool occult blood was positive. Iron studies reviewed. Anemia is likely multi-factorial. Patient is on eliquis for history of DVT/PE. Continue to monitor CBC closely. GI evaluation was appreciated; recommended possible EGD after optimization. Susanna Andre MD Hospitalist.
[2018-02-16 07:17] LABS: BASO # 0.03 K/mm3 (0.0-2.0); BASO % 0.5 % (0.0-3.0); EOS # 0.4 (0.0-0.7); EOS % 6.9 % (1.5-5.0); GRAN # 3.18 (1.4-6.5); GRAN % 56.3 % (50.0-68.0); HEMOGLOBIN 9.3 g/dL (12.0-16.0); LYMPH # 1.7 (1.2-3.4); LYMPH % 29.2 % (22.0-35.0); MEAN CORPUSCULAR HEMOGLOBIN 24.9 pg (25.0-35.0); MEAN CORPUSCULAR HGB CONC 29.6 g/dl (31.0-37.0); MONO # 0.4 (0.1-0.6); MONO % 7.1 % (1.0-6.0); RBC 3.74 10^6/uL (3.5-6.1); RED CELL DISTRIBUTION WIDTH 15.5 % (11.5-14.5); WHITE BLOOD COUNT 5.7 10^3/ul (4.5-11.0)
[2018-02-16 07:39] LABS: ALB/GLOB RATIO 0.9 (1.1-1.8); ALBUMIN 3.1 g/dL (3.0-4.8); CALCIUM 8.8 mg/dL (8.4-10.5)
--- NOTE | 2018-02-16 07:56 | PN ---
DATE: 02/16/2018 SUBJECTIVE: The patient is currently seen in the mission planner hours. She has a BiPAP mask in place. She appears to be in no acute distress. MEDICATIONS: Medication list reviewed. The patient is on acetylcysteine inhalation therapy, Apresoline, Brovana, Ditropan, vitamin D, Ecotrin, Eliquis, oral iron, insulin, Imdur, IV Venofer, Lidoderm, Lipitor, Lyrica, Mysoline, Nephro-Holland, Norvasc, p.r.n. Percocet, Protonix, Pulmicort, IV Rocephin, Toprol and Zaroxolyn 2.5 mg a day. IV Lasix was discontinued. OBJECTIVE: INTAKE/OUTPUT: Intake is 900, output is 250. VITAL SIGNS: Blood pressure 150/60, temperature 98.9, respiratory rate 18 with a pulse of 70. The patient is presently on a BiPAP mask. FIO2 of 50%. Last oxygen saturation was 96%. HEENT: Shows her to be normocephalic, atraumatic. Conjunctivae are pale. NECK: Supple. No neck vein distention. CHEST: Clear to auscultation and percussion with slight decreased breath sounds at the bases. No rales, rhonchi or wheezing noted. CARDIAC: Shows a regular rate and rhythm without audible murmurs, rubs or gallops. ABDOMEN: Obese. Positive lower quadrant colostomy. Nondistended. Bowel sounds normal. No rebound, guarding or masses. EXTREMITIES: Show puffy arms and 1+ pitting edema of her lower extremity bilaterally. NEURO: Shows her to be alert and oriented. LABORATORY DATA AND IMAGING: CBC from yesterday showed a white blood cell count 6.2; hemoglobin of 9.2, up from 7.9 post 1 unit of packed red blood cell transfusion. Platelet count is 318,000. Last blood gas from yesterday: PH 7.34, pCO2 of 67 with a pO2 of 87. Chemistries showed normal potassium, normal sodium. CO2 level was 38. Appropriate compensation for her CO2 retention. BUN is 54, up from a baseline during this present admission of 48. Her previous baseline had been in the upper 20 range. Creatinine is 1.9, down from 2.1. She was 1.5 on admission. Glucose is 122. Calcium 9. Phosphorus level has been normal. Magnesium level on last check was 2.3. Iron saturation was 14%. Liver enzymes are normal. Albumin is 3. Urine showed proteinuria. Stools are positive for blood. Microbiology: All cultures are negative. ASSESSMENT: 1. Acute renal failure, prerenal azotemia superimposed on chronic kidney disease stage 3. The patient is found to have chronic kidney disease secondary to diabetes and hypertension. She does have proteinuria as noted above. 2. Hypertension with better control on present medical therapy. The patient is presently off angiotensin-converting enzyme inhibitors and angiotensin receptor blockers because of issues related to worsening renal parameters. 3. Bilateral pneumonia. The patient remains on empiric antibiotic therapy. All cultures are negative. 4. History of obstructive sleep apnea, chronic obstructive pulmonary disease, CO2 retention, respiratory failure. The patient is presently on bilevel positive airway pressure. 5. History of anemia, status post 1 unit packed red blood cells. Stools are positive for blood. The patient evaluated by GI and when stable will likely have an endoscopy. The patient will continue IV iron supplements along with oral iron. Try and maintain hemoglobin in the 9-10 range. 6. Atherosclerotic heart disease, status post percutaneous transluminal coronary angioplasty, stent. The patient appears to be stable and remains on telemetry. 7. History of rectal cancer, status post colectomy with colostomy. This appears to be stable. 8. History of hyperlipidemia, on statin therapy. 9. Edema of her lower extremity. The patient had been on IV Lasix and oral Zaroxolyn. From my standpoint, the patient may remain on combination therapy, perhaps using oral Lasix together with Zaroxolyn. She should be maintained in negative fluid balance and it would be acceptable to keep her mildly prerenal. PLAN: 1. Attempt to continue diuresis. Using combination therapy with diuretics. 2. In light of her anemia and iron deficiency, continue IV iron supplementation. Blood cultures are negative, so no issues receiving IV Venofer. 3. Continue GI followup. 4. Continue to monitor her blood pressures and adjust medications accordingly. 5. For right now, continue chronic anticoagulation. 6. Continue to monitor accurate I's and O's and attempt to keep the patient in negative fluid balance. 7. Continue to monitor the patient on telemetry. Osman Perea MD [facility] # [id number]
[2018-02-16] MEDS: Acetylcysteine 20% Inhal Soln (4ml) INH SCH ×2 (08:00→19:40)
[2018-02-16] MEDS: Arformoterol 15 mcg/2 ml Inh Sol IH SCH ×2 (08:01→19:40)
[2018-02-16] MEDS: Budesonide 0.5 mg/2 ml Inhal Susp UD IH SCH ×2 (08:01→19:40)
[2018-02-16] MEDS: Insulin Reg-LOW-Coverage SC SCH ×4 (08:11→22:21)
[2018-02-16] MEDS: Multivitamin Vitamin B Complex (Nephro-Vite) Tab PO SCH (08:14)
[2018-02-16] MEDS: Metoprolol Succinate 100 mg XL Tab PO SCH (08:15)
[2018-02-16] MEDS: Lidocaine 5% Patch TD SCH (09:57)
[2018-02-16] MEDS: metOLazone 2.5 MG TAB PO SCH (10:04)
[2018-02-16] MEDS: cefTRIAXone 1 gm 1 GM/100 ML BAG IVPB SCH (10:04)
--- NOTE | 2018-02-16 17:36 | PN ---
DATE: 02/16/2018 SUBJECTIVE: The patient is short of breath, currently on BiPAP. PHYSICAL EXAMINATION: VITAL SIGNS: Blood pressure 173/57, heart rate 73, temperature 99.2, respiration 20. HEENT: Pale conjunctivae. CHEST: Diffuse bilateral rhonchi. HEART: S1, S2 regular. EXTREMITIES: 1+ pitting edema. LABORATORY DATA: Today's hemoglobin and hematocrit 9.3 and 31.4. White count and platelet count are within normal limit. SMA-7: Sodium 139, potassium 4.4, chloride 97, CO2 of 39, glucose 134, BUN 57, creatinine 1.8. Venous Doppler of lower extremities: No sonographic evidence of DVT and the visualized segments of both lower extremities. ASSESSMENT: 1. Worsening renal insufficiency with prerenal azotemia. 2. Diastolic heart failure. 3. Bilateral pneumonia. 4. Anemia, status post one unit of packed RBC transfusion. 5. History of rectal cancer, status post resection, chemotherapy and ileostomy. RECOMMENDATIONS: Continue hydralazine 100 mg t.i.d., Eliquis 2.5 mg twice a day, aspirin 81 mg once a day, Lasix 40 mg p.o. once a day, Imdur 60 mg once a day, Lipitor 20 mg once a day, Percocet one tablet every 6 hours p.r.n. for moderate pain, Protonix 40 mg p.o. once a day, IV Rocephin at 1 g daily, Toprol-XL 100 mg daily, Zaroxolyn 2.5 mg daily. Gildardo Barry MD
--- NOTE | 2018-02-16 19:11 | PN ---
DATE: 02/16/2018 PULMONARY PROGRESS NOTE REFERRING PHYSICIAN: Dr. Andre. SUBJECTIVE: She is out of bed to chair, on nasal cannula, feels better, still needed a noninvasive ventilation at nighttime, cough and shortness of breath better. No nausea, vomiting, or diarrhea. No leg pain, but has a trace leg swelling. OBJECTIVE: GENERAL: In no distress. VITAL SIGNS: Temperature is 99, heart rate 73, respiratory rate is 20, blood pressure 173/57, pulse ox 96% on BiPAP. HEENT: Moist mucous membranes. Crowded airway. NECK: Short thick neck. LUNGS: Scattered rhonchi. HEART: S1 and S2. ABDOMEN: Soft, nontender, and nondistended. Colostomy bag looks okay. EXTREMITIES: There is trace edema. NEUROLOGIC: Awake, alert, and follows simple command. MEDICATIONS: She is on Mucomyst 3 mL inhaled twice a day, hydralazine 100 mg three times a day, Brovana inhaled twice a day, Ditropan 10 mg daily, vitamin D 50,000 units every 7 days, Ecotrin 81 mg daily, Eliquis 2.5 mg twice a day, ferrous gluconate 325 mg three times a day, insulin coverage, Imdur 60 mg daily, iron sucrose 200 mg daily, Lasix 40 mg daily, Levemir 20 units subcu every 12 hours, lidocaine patch daily, Lipitor 20 mg daily, Lyrica 200 mg daily, primidone 50 mg daily, Nephro vitamins daily, Norvasc 10 mg daily, Percocet 5/325 one tablet every 6 hours p.r.n., Protonix 20 mg daily, Pulmicort inhaled twice a day, Rocephin 1 g daily, Toprol XL 100 mg daily, Zaroxolyn 2.5 mg daily. LABORATORY DATA: Hemoglobin 9.3, hematocrit 31.4, WBC 5.7, and platelets 361. ABG shows pH of 7.34 from yesterday, pCO2 was 67. Sodium 139, potassium 4.4, chloride 97, bicarbonate 39. BUN 57, creatinine 1.8. Glucose 134. Calcium 8.8. AST 33 ALT 17, alk phos is 112. Albumin is 3.1. Stool for occult blood is positive. Microbiology: Blood culture and urine culture, there is no growth. IMPRESSION AND PLAN: Chronic respiratory failure, hypoventilation syndrome, multilobar pneumonia, chronic lung disease, morbid obesity, coronary artery disease, cardiomyopathy with pulmonary embolism in the past, also had deep venous thrombosis in the past, renal failure is slowly improving, history of colorectal cancer requiring resection and chemotherapy, has a colostomy, morbid obesity. Pulmonary point of view, slowly improving. Continue antibiotics, bronchodilator. Continue BiPAP on as needed basis, supplemental oxygen 2 L while sitting up in a chair. Gastric prophylaxis, anticoagulation, fall precaution. Thank you and we will follow with you. Pamela Ayala MD
[2018-02-17] MEDS: Insulin Detemir 100 units/ml Vial (Levemir) SC SCH ×2 (00:39→11:41)
[2018-02-17] MEDS: Pantoprazole 20 mg EC Tab PO SCH (05:42)
--- NOTE | 2018-02-17 06:39 | CP.PCM.PN ---
<Zackery Naqvi - Last Filed: 02/17/18 15:06> Subjective - Date & Time of Evaluation Date of Evaluation: 02/17/18 Time of Evaluation: 05:48 - Subjective Subjective: Zackery Naqvi DO PGY-1, Internal Medicine Resident. Hospitalist Progress Note Patient seen and examined at bedside. Patient is still on BiPAP at day and night , improved her breathing pattern. No respiratory distress. Slept well. No acute events overnight. She is not ambulating out of bed. Patient denied CP, palpitations, headache, fever. ROS is otherwise negative Objective - Vital Signs/Intake and Output Vital Signs (last 24 hours): Temp Pulse Resp BP Pulse Ox 98.0 F 77 18 180/65 H 97 02/17/18 06:00 02/17/18 06:00 02/17/18 06:00 02/17/18 06:00 02/17/18 06:00 Intake and Output: 02/16/18 02/17/18 18:59 06:59 Intake Total 720 Output Total 2 Balance 718 - Medications Medications: Current Medications Acetylcysteine (Acetylcysteine 20%) 3 ml INH [id number] [facility] Last Admin: 02/16/18 19:40 Dose: 3 ml Amlodipine Besylate (Norvasc) 10 mg PO DAILY [facility] Last Admin: 02/16/18 10:03 Dose: 10 mg Apixaban (Eliquis) 2.5 mg PO BID JR PRN Reason: Protocol Last Admin: 02/16/18 18:05 Dose: 2.5 mg Arformoterol Tartrate (Brovana) 15 mcg IH [id number] [facility] Last Admin: 02/16/18 19:40 Dose: 15 mcg Aspirin (Ecotrin) 81 mg PO DAILY [facility] Last Admin: 02/16/18 10:02 Dose: 81 mg Atorvastatin Calcium (Lipitor) 20 mg PO HS [facility] Last Admin: 02/16/18 22:24 Dose: 20 mg Budesonide (Pulmicort Respules) 0.5 mg IH [id number] [facility] Last Admin: 02/16/18 19:40 Dose: 0.5 mg Dextrose (Dextrose 50% Inj) 0 ml IV STAT PRN; Protocol PRN Reason: Hypoglycemia Protocol Ergocalciferol (Drisdol 50,000 Intl Units Cap) 1 cap PO Q7D [facility] Last Admin: 02/11/18 15:18 Dose: 1 cap Ferrous Gluconate (Fergon) 324 mg PO TID [facility] Last Admin: 02/16/18 18:05 Dose: 324 mg Furosemide (Lasix) 40 mg PO DAILY [facility] Last Admin: 02/16/18 10:02 Dose: 40 mg Hydralazine HCl (Apresoline) 100 mg PO TID [facility] Last Admin: 02/16/18 18:04 Dose: 100 mg Dextrose (Dextrose 5% In Water 1000 Ml) 1,000 mls @ 0 mls/hr IV .Q0M PRN; Protocol; Per Protocol PRN Reason: Hypoglycemia Protocol Iron Sucrose 200 mg/ Sodium (Chloride) 110 mls @ 110 mls/hr IVPB DAILY [facility] Stop: 02/18/18 10:59 Last Admin: 02/16/18 10:04 Dose: 110 mls/hr Insulin Detemir (Levemir) 20 unit SC Q12H [facility] Last Admin: 02/17/18 00:39 Dose: 20 units Insulin Human Regular (Humulin R Low) 0 units SC ACHS [facility] PRN Reason: Protocol Last Admin: 02/16/18 22:21 Dose: Not Given Isosorbide Mononitrate (Imdur) 60 mg PO DAILY [facility] Last Admin: 02/16/18 10:02 Dose: 60 mg Lidocaine (Lidoderm) 1 ea TD DAILY [facility] Last Admin: 02/16/18 09:57 Dose: 1 ea Metolazone (Zaroxolyn) 2.5 mg PO DAILY [facility] Last Admin: 02/16/18 10:04 Dose: 2.5 mg Metoprolol Succinate (Toprol Xl) 100 mg PO BRK [facility] Last Admin: 02/16/18 08:15 Dose: 100 mg Oxybutynin Chloride (Ditropan Tab) 10 mg PO DAILY [facility] Last Admin: 02/16/18 10:02 Dose: 10 mg Pantoprazole Sodium (Protonix Ec Tab) 20 mg PO 0600 [facility] Last Admin: 02/17/18 05:42 Dose: 20 mg Pregabalin (Lyrica) 200 mg PO DAILY [facility] Last Admin: 02/16/18 10:03 Dose: 200 mg Primidone (Mysoline) 50 mg PO DAILY [facility] Last Admin: 02/16/18 10:03 Dose: 50 mg Vitamin B Complex/Vit C/Folic Acid (Nephro-Holland) 1 tab PO 0800 [facility] Last Admin: 02/16/18 08:14 Dose: 1 tab - Labs Labs: 02/16/18 06:00 02/16/18 06:00 PT 14.8 SECONDS (9.4-12.5) H 02/12/18 06:00 INR 1.28 02/12/18 06:00 - Additional Findings Additional findings: - Constitutional Appears: In Acute Distress - Head Exam Head Exam: ATRAUMATIC, NORMOCEPHALIC - Eye Exam Eye Exam: EOMI, Normal appearance, PERRL Pupil Exam: NORMAL ACCOMODATION, PERRL - ENT Exam ENT Exam: Mucous Membranes Moist, Normal Exam - Neck Exam Neck Exam: Full ROM, Normal Inspection. absent: Lymphadenopathy - Respiratory Exam Respiratory Exam: improving Breath Sounds, No Respiratory Distress - Cardiovascular Exam Cardiovascular Exam: REGULAR RHYTHM, +S1, +S2. absent: Murmur - GI/Abdominal Exam GI & Abdominal Exam: Soft, Normal Bowel Sounds. absent: Tenderness - Extremities Exam Extremities Exam: Pedal Edema. absent: Calf Tenderness - Back Exam Back Exam: muscle spasm, paraspinal tenderness. absent: CVA tenderness (L), CVA tenderness (R) - Neurological Exam Neurological Exam: Alert, Awake, CN II-XII Intact, Oriented x3 - Psychiatric Exam Psychiatric exam: Normal Affect, Normal Mood - Skin Skin Exam: Dry, Intact, Normal Color, Warm Assessment and Plan - Assessment and Plan (Free Text) Assessment: 62 y/o female with PMH of HTN, DM2, HLD CAD with stents palced, COPD, PE/ DVT, renal failure, chronic renal insufficiency, anemia, colorectal ca s/p resection with colostomy, morbid obesity, SUMMER, chronic back pain admitted for intractable back pain s/p fall at home. Found to have right sided pneumonia, SHELBI on CKD, acute on chronic respiratory failure, anemia with drop in H/H. On BiPAP intermittently during night and daytime. Plan: Multilobar Pneumonia -CXR showed right multilobar pneumonia -CT chest: multifocal infiltrate right>left -Azithromycin switched to PO -Rocephin discontinued -Blood culture negative to date -procalcitonin 1.59 on 02/13 Acute on chronic respiratory failure -Breathing patterned improving -On BiPAP during sleep and high-flow during daytime as per pulmonology recs -ABG in AM still consistently hypercapnic -Pulmonology consulted Dr Ayala: continue abx and bronchodilator -Duplex LE U/S negative for DVT Anemia -normochromic normocytic. likely 2/2 chronic disease -H/H dropped from /29.7 to 7.9/27 in one day -PRBCs transfusion. 1 unit given. follow H/H 9.2/30.9 today -patient is asymptomatic -Iron 26, TIBC 192, 14% saturation -Given Venofir 200 mg -FOBT positive -h/o colon cancer s/p patial colectomy with colostomy (2013) -As per GI consult, continue medical management, endoscopy in question, will discuss with other consultants -Retic count 0.85 -CEA 5.4 -Monitor ostomy site output for melena and blood. continue anticoagulants SHELBI on CKD stage 3 - BUN/Cr is 48/1.8 at admission. remains elevated - Microalbumin/Cr >1700 - continue with IV lasix 40 QD - Increased hydralazine 50 tid - hold ACEI/ARB due to recent SHELBI - started iron supplements, MVI and weekly Vit D - avoid nephrotoxins/NSAIDs/ iodinated contrast Chronic back pain -Likely 2/2 morbid obesity. BMI>55. immobilization -Medical management with oxycontin and dilaudid by PMD, multiple steroid injections with recurrent symptoms -L/S spine MRI ordered to r/o hematoma being on anticoagulation. Patient couldn' t fit in MRI machine. will be done outpatient -Lidoderm patch to back -Percocet 5/325 mg PO Q6H PRN pain -Thoracic/Lumbar XR: no compression fracture S/P fall -Patient felt dizzy after taking 2 dilaudid doses by mistake. no injuries reported -Head CT shows no acute intracranial hge -Per physical therapy note: patient to go for [facility]. Patient prefers [facility] in [facility] otherwise home with PT service -Will talk to case filler tomorrow for possible TSU transfer Hyperlipidemia - continue home atorvastatin - lipid panel wnl UTI - no leukocytosis - small leukocyte esterase, urine WBCs 15-20 - urine culture, blood culture x2 -Essential Tremors - continue pramidone as per PMD Hypertension - continue home meds amlodipine, hydralazine, metoprolol - patient has multiple episodes of hypertensive urgencies controlled with hydralazine, lasix DM2 -accucheck -Hgb A1c 7.4 -Levimir 20u q12hr started -ISS CHF -continue metoprolol, eliquis -cardiology on board. -Duplex LE U/S: negative for DVT, 2x3 cm fluid collection in R popliteal fossa consistent with Godinez's cyst -Echo (08/2017) showed LVEF of 53.0%. Moderate concentric LVH -BNP 6280 -started on zaroxolyn 2.5mg BID as per nephro -continue I/O, +balance of 250-650 GI ppx:protonix heart healthy diet Head elevation Case reviewed and plan discussed with attending physician Dr. Andre <Susanna Andre - Last Filed: 02/17/18 15:28> Objective - Vital Signs/Intake and Output Vital Signs (last 24 hours): Temp Pulse Resp BP Pulse Ox 98.8 F 81 18 164/61 H 97 02/17/18 12:00 02/17/18 15:19 02/17/18 12:00 02/17/18 15:19 02/17/18 06:00 Intake and Output: 02/17/18 02/17/18 06:59 18:59 Intake Total 720 Output Total 2 Balance 718 - Medications Medications: Current Medications Acetylcysteine (Acetylcysteine 20%) 3 ml INH [id number] [facility] Last Admin: 02/17/18 07:59 Dose: 3 ml Amlodipine Besylate (Norvasc) 10 mg PO DAILY [facility] Last Admin: 02/17/18 09:03 Dose: 10 mg Apixaban (Eliquis) 2.5 mg PO BID [facility] PRN Reason: Protocol Last Admin: 02/17/18 09:03 Dose: 2.5 mg Arformoterol Tartrate (Brovana) 15 mcg IH [id number] Last Admin: 02/17/18 08:00 Dose: 15 mcg Aspirin (Ecotrin) 81 mg PO DAILY [facility] Last Admin: 02/17/18 09:04 Dose: 81 mg Atorvastatin Calcium (Lipitor) 20 mg PO HS [facility] Last Admin: 02/16/18 22:24 Dose: 20 mg Azithromycin (Zithromax) 250 mg PO DAILY [facility] PRN Reason: Protocol Last Admin: 02/17/18 15:18 Dose: 250 mg Budesonide (Pulmicort Respules) 0.5 mg IH [id number] [facility] Last Admin: 02/17/18 08:00 Dose: 0.5 mg Dextrose (Dextrose 50% Inj) 0 ml IV STAT PRN; Protocol PRN Reason: Hypoglycemia Protocol Ergocalciferol (Drisdol 50,000 Intl Units Cap) 1 cap PO Q7D [facility] Last Admin: 02/11/18 15:18 Dose: 1 cap Ferrous Gluconate (Fergon) 324 mg PO TID [facility] Last Admin: 02/17/18 15:18 Dose: 324 mg Furosemide (Lasix) 40 mg PO DAILY [facility] Last Admin: 02/17/18 09:03 Dose: 40 mg Hydralazine HCl (Apresoline) 100 mg PO TID [facility] Last Admin: 02/17/18 15:19 Dose: 100 mg Dextrose (Dextrose 5% In Water 1000 Ml) 1,000 mls @ 0 mls/hr IV .Q0M PRN; Protocol; Per Protocol PRN Reason: Hypoglycemia Protocol Iron Sucrose 200 mg/ Sodium (Chloride) 110 mls @ 110 mls/hr IVPB DAILY [facility] Stop: 02/18/18 10:59 Last Admin: 02/17/18 09:53 Dose: 110 mls/hr Insulin Detemir (Levemir) 20 unit SC Q12H [facility] Last Admin: 02/17/18 11:41 Dose: 20 units Insulin Human Regular (Humulin R Low) 0 units SC ACHS [facility] PRN Reason: Protocol Last Admin: 02/17/18 11:28 Dose: Not Given Isosorbide Mononitrate (Imdur) 60 mg PO DAILY [facility] Last Admin: 02/17/18 09:02 Dose: 60 mg Lidocaine (Lidoderm) 1 ea TD DAILY [facility] Last Admin: 02/17/18 10:42 Dose: 1 ea Metolazone (Zaroxolyn) 2.5 mg PO DAILY [facility] Last Admin: 02/17/18 09:04 Dose: 2.5 mg Metoprolol Succinate (Toprol Xl) 100 mg PO BRK [facility] Last Admin: 02/17/18 09:02 Dose: 100 mg Oxybutynin Chloride (Ditropan Tab) 10 mg PO DAILY [facility] Last Admin: 02/17/18 09:02 Dose: 10 mg Pantoprazole Sodium (Protonix Ec Tab) 20 mg PO 0600 [facility] Last Admin: 02/17/18 05:42 Dose: 20 mg Pregabalin (Lyrica) 200 mg PO DAILY [facility] Last Admin: 02/17/18 09:03 Dose: 200 mg Primidone (Mysoline) 50 mg PO DAILY [facility] Last Admin: 02/17/18 09:03 Dose: 50 mg Vitamin B Complex/Vit C/Folic Acid (Nephro-Holland) 1 tab PO 0800 [facility] Last Admin: 02/17/18 09:02 Dose: 1 tab - Labs Labs: 02/17/18 10:00 02/17/18 10:00 PT 14.8 SECONDS (9.4-12.5) H 02/12/18 06:00 INR 1.28 02/12/18 06:00 Attending/Attestation - Attestation I have personally seen and examined this patient.: Yes I have fully participated in the care of the patient.: Yes I have reviewed all pertinent clinical information, including history, physical exam and plan: Yes Notes (Text): 02/16/18 62 year old female with past medical history of hypertension, diabetes, CAD, COPD, DVT/PE on eliquis, CKD, colorectal cancer s/p resection and colostomy, obesity and chronic back pain who presented s/p fall and intractable back pain. Found to have acute on chronic respiratory failure secondary to right sided pneumonia and CHF. CT chest showed right sided pneumonia. Likely SUMMER/COPD component as well. Respiratory symptoms have been improving for the past few days. Now lasix has been switched to po. Ceftriaxone is discontinued and patient is on po azithromcyin. Cardiology and pulmonary are following. Continue with Bipap HS as per pulmonary recommendations. Continue to monitor kidney function closely while on diuretics. Nephrology is following and patient is also on metolazone. She was also found to have to acute on chronic renal failure, adrenal nodule and uncontrolled hypertension for which nephrology is following. Plasma renin/ aldosterone and metanephrin is ordered. Outpatient dexamathasone suppression test and repeat sonogram in 6 months is suggested. Patient was transfused one unit prbc earlier this week for anemia. Started on iv iron by nephrology. Stool occult blood was positive. Iron studies reviewed. Anemia is likely multi-factorial. Patient is on eliquis for history of DVT/PE. Continue to monitor CBC closely. GI evaluation was appreciated; recommended possible EGD after optimization. Patient is on percocet prn for back pain. Xray spines were reviewed. Unable to complete MRI secondary to weight. Recommended outpatient open MRI. PT evaluation was appreciated; recommended [facility]. However patient prefers either TCU or home with services. Will request PT follow up for d/c planning recommendations. Susanna Andre MD Hospitalist.
[2018-02-17] MEDS: Acetylcysteine 20% Inhal Soln (4ml) INH SCH ×2 (07:59→19:16)
[2018-02-17] MEDS: Budesonide 0.5 mg/2 ml Inhal Susp UD IH SCH ×2 (08:00→19:17)
[2018-02-17] MEDS: Arformoterol 15 mcg/2 ml Inh Sol IH SCH ×2 (08:00→19:17)
[2018-02-17] MEDS: Insulin Reg-LOW-Coverage SC SCH ×4 (08:23→22:17)
[2018-02-17] MEDS: Metoprolol Succinate 100 mg XL Tab PO SCH (09:02)
[2018-02-17] MEDS: Multivitamin Vitamin B Complex (Nephro-Vite) Tab PO SCH (09:02)
[2018-02-17] MEDS: metOLazone 2.5 MG TAB PO SCH (09:04)
[2018-02-17] MEDS: Lidocaine 5% Patch TD SCH (10:42)
[2018-02-17 10:52] LABS: ALB/GLOB RATIO 0.9 (1.1-1.8); ALBUMIN 3.1 g/dL (3.0-4.8); CALCIUM 8.9 mg/dL (8.4-10.5)
[2018-02-17 11:18] LABS: HEMOGLOBIN 9.6 g/dL (12.0-16.0); MEAN CELL VOLUME 85.3 fl (80.0-105.0); MEAN CORPUSCULAR HEMOGLOBIN 24.7 pg (25.0-35.0); MEAN CORPUSCULAR HGB CONC 28.9 g/dl (31.0-37.0); MEAN PLATELET VOLUME 10.8 fl (7.0-11.0); RBC 3.89 10^6/uL (3.5-6.1); RED CELL DISTRIBUTION WIDTH 15.6 % (11.5-14.5); WHITE BLOOD COUNT 7.2 10^3/ul (4.5-11.0)
--- NOTE | 2018-02-17 11:33 | CP.PCM.PN ---
<Caio Stokes - Last Filed: 02/17/18 11:31> Subjective - Date & Time of Evaluation Date of Evaluation: 02/17/18 Time of Evaluation: 11:31 - Subjective Subjective: GI fellow PGY4, No complaints. Still on supplemental O2. No reports of bleeding. Objective - Vital Signs/Intake and Output Vital Signs (last 24 hours): Temp Pulse Resp BP Pulse Ox 98.0 F 72 18 188/60 H 97 02/17/18 06:00 02/17/18 09:02 02/17/18 06:00 02/17/18 09:03 02/17/18 06:00 Intake and Output: 02/17/18 02/17/18 06:59 18:59 Intake Total 720 Output Total 2 Balance 718 - Medications Medications: Current Medications Acetylcysteine (Acetylcysteine 20%) 3 ml INH [id number] [facility] Last Admin: 02/17/18 07:59 Dose: 3 ml Amlodipine Besylate (Norvasc) 10 mg PO DAILY [facility] Last Admin: 02/17/18 09:03 Dose: 10 mg Apixaban (Eliquis) 2.5 mg PO BID [facility] PRN Reason: Protocol Last Admin: 02/17/18 09:03 Dose: 2.5 mg Arformoterol Tartrate (Brovana) 15 mcg IH [id number] [facility] Last Admin: 02/17/18 08:00 Dose: 15 mcg Aspirin (Ecotrin) 81 mg PO DAILY [facility] Last Admin: 02/17/18 09:04 Dose: 81 mg Atorvastatin Calcium (Lipitor) 20 mg PO HS [facility] Last Admin: 02/16/18 22:24 Dose: 20 mg Budesonide (Pulmicort Respules) 0.5 mg IH [id number] [facility] Last Admin: 02/17/18 08:00 Dose: 0.5 mg Dextrose (Dextrose 50% Inj) 0 ml IV STAT PRN; Protocol PRN Reason: Hypoglycemia Protocol Ergocalciferol (Drisdol 50,000 Intl Units Cap) 1 cap PO Q7D [facility] Last Admin: 02/11/18 15:18 Dose: 1 cap Ferrous Gluconate (Fergon) 324 mg PO TID [facility] Last Admin: 02/17/18 09:03 Dose: 324 mg Furosemide (Lasix) 40 mg PO DAILY [facility] Last Admin: 02/17/18 09:03 Dose: 40 mg Hydralazine HCl (Apresoline) 100 mg PO TID [facility] Last Admin: 02/17/18 09:02 Dose: 100 mg Dextrose (Dextrose 5% In Water 1000 Ml) 1,000 mls @ 0 mls/hr IV .Q0M PRN; Protocol; Per Protocol PRN Reason: Hypoglycemia Protocol Iron Sucrose 200 mg/ Sodium (Chloride) 110 mls @ 110 mls/hr IVPB DAILY [facility] Stop: 02/18/18 10:59 Last Admin: 02/17/18 09:53 Dose: 110 mls/hr Insulin Detemir (Levemir) 20 unit SC Q12H [facility] Last Admin: 02/17/18 00:39 Dose: 20 units Insulin Human Regular (Humulin R Low) 0 units SC ACHS [facility] PRN Reason: Protocol Last Admin: 02/17/18 08:23 Dose: Not Given Isosorbide Mononitrate (Imdur) 60 mg PO DAILY [facility] Last Admin: 02/17/18 09:02 Dose: 60 mg Lidocaine (Lidoderm) 1 ea TD DAILY [facility] Last Admin: 02/17/18 10:42 Dose: 1 ea Metolazone (Zaroxolyn) 2.5 mg PO DAILY [facility] Last Admin: 02/17/18 09:04 Dose: 2.5 mg Metoprolol Succinate (Toprol Xl) 100 mg PO BRK [facility] Last Admin: 02/17/18 09:02 Dose: 100 mg Oxybutynin Chloride (Ditropan Tab) 10 mg PO DAILY [facility] Last Admin: 02/17/18 09:02 Dose: 10 mg Pantoprazole Sodium (Protonix Ec Tab) 20 mg PO 0600 [facility] Last Admin: 02/17/18 05:42 Dose: 20 mg Pregabalin (Lyrica) 200 mg PO DAILY [facility] Last Admin: 02/17/18 09:03 Dose: 200 mg Primidone (Mysoline) 50 mg PO DAILY [facility] Last Admin: 02/17/18 09:03 Dose: 50 mg Vitamin B Complex/Vit C/Folic Acid (Nephro-Holland) 1 tab PO 0800 [facility] Last Admin: 02/17/18 09:02 Dose: 1 tab - Labs Labs: 02/17/18 10:00 02/17/18 10:00 PT 14.8 SECONDS (9.4-12.5) H 09/11/18 06:00 INR 1.28 02/12/18 06:00 - Constitutional Appears: Non-toxic, No Acute Distress - Head Exam Head Exam: NORMAL INSPECTION - Eye Exam Eye Exam: Normal appearance - Respiratory Exam Respiratory Exam: Clear to Ausculation Bilateral. absent: NORMAL BREATHING PATTERN - Cardiovascular Exam Cardiovascular Exam: REGULAR RHYTHM, +S1, +S2 - GI/Abdominal Exam GI & Abdominal Exam: Soft, Normal Bowel Sounds. absent: Tenderness - Extremities Exam Extremities Exam: Normal Inspection - Neurological Exam Neurological Exam: Alert, Awake, Oriented x3 - Psychiatric Exam Psychiatric exam: Normal Affect, Normal Mood Assessment and Plan - Assessment and Plan (Free Text) Assessment: Very complex 62F with extensive history including cardiopulmonary disease, rectal CA s/p chemoradiation 2013 now presenting with fall. We were consulted for anemia with FOBT+. #Chronic anemia - Ranges from 8 to 10 over the last two years. Likely multifactorial (chronic disease, CKD). Unlikely GI bleed at this time. On OAC. #Hx of rectal CA (2013) s/p chemoradiation and colostomy - CEA 2014 normal. 4.4, elevated. PET scan 2016 - No systemic disease. #DVT/PE - On Eliquis #Acute on chronic hypercapnic respiratory failure #Pulmonary HTN #Sepsis - UTI/PNA #Morbid obesity #SUMMER #T2DM #HTN #SHELBI on CKD PLAN: -Very complex, non-compliant patient currently with acute on chronic conditions. She is at very high risk for intraoperative complication. Will need to discuss with primary, anesthesia, cardiology, pulmonology before any endoscopic procedures to be done. -CT reviewed w/o oral or IV contrast. -Optimize clinical conditions -Continue PPI -Would continue OAC consider previous b/l PE and no signs of major bleed at this time. However, she must be monitored closely. -Trend Hb daily. Monitor ostomy site output for melena, bloody. -CEA 5.4, minimally elevated compared to previous. <Gita Benitez V - Last Filed: 02/17/18 18:29> Objective - Vital Signs/Intake and Output Vital Signs (last 24 hours): Temp Pulse Resp BP Pulse Ox 98.4 F 70 18 164/66 H 95 02/17/18 17:36 02/17/18 18:04 02/17/18 17:36 02/17/18 18:04 02/17/18 17:36 Intake and Output: 18 02/17/18 06:59 18:59 Intake Total 720 Output Total 2 Balance 718 - Medications Medications: Current Medications Acetylcysteine (Acetylcysteine 20%) 3 ml INH [id number] [facility] Last Admin: 02/17/18 07:59 Dose: 3 ml Amlodipine Besylate (Norvasc) 10 mg PO DAILY [facility] Last Admin: 02/17/18 09:03 Dose: 10 mg Apixaban (Eliquis) 2.5 mg PO BID [facility] PRN Reason: Protocol Last Admin: 02/17/18 18:04 Dose: 2.5 mg Arformoterol Tartrate (Brovana) 15 mcg IH [id number] [facility] Last Admin: 02/17/18 08:00 Dose: 15 mcg Aspirin (Ecotrin) 81 mg PO DAILY [facility] Last Admin: 02/17/18 09:04 Dose: 81 mg Atorvastatin Calcium (Lipitor) 20 mg PO HS [facility] Last Admin: 02/16/18 22:24 Dose: 20 mg Azithromycin (Zithromax) 250 mg PO DAILY [facility] PRN Reason: Protocol Last Admin: 02/17/18 15:18 Dose: 250 mg Budesonide (Pulmicort Respules) 0.5 mg IH [id number] [facility] Last Admin: 02/17/18 08:00 Dose: 0.5 mg Dextrose (Dextrose 50% Inj) 0 ml IV STAT PRN; Protocol PRN Reason: Hypoglycemia Protocol Ergocalciferol (Drisdol 50,000 Intl Units Cap) 1 cap PO Q7D [facility] Last Admin: 02/11/18 15:18 Dose: 1 cap Ferrous Gluconate (Fergon) 324 mg PO TID [facility] Last Admin: 02/17/18 18:04 Dose: 324 mg Furosemide (Lasix) 40 mg PO DAILY [facility] Last Admin: 02/17/18 09:03 Dose: 40 mg Hydralazine HCl (Apresoline) 100 mg PO TID [facility] Last Admin: 02/17/18 18:04 Dose: 100 mg Dextrose (Dextrose 5% In Water 1000 Ml) 1,000 mls @ 0 mls/hr IV .Q0M PRN; Protocol; Per Protocol PRN Reason: Hypoglycemia Protocol Iron Sucrose 200 mg/ Sodium (Chloride) 110 mls @ 110 mls/hr IVPB DAILY [facility] Stop: 02/18/18 10:59 Last Admin: 02/17/18 09:53 Dose: 110 mls/hr Insulin Detemir (Levemir) 20 unit SC Q12H [facility] Last Admin: 02/17/18 11:41 Dose: 20 units Insulin Human Regular (Humulin R Low) 0 units SC ACHS [facility] PRN Reason: Protocol Last Admin: 02/17/18 18:15 Dose: 1 unit Isosorbide Mononitrate (Imdur) 60 mg PO DAILY [facility] Last Admin: 02/17/18 09:02 Dose: 60 mg Lidocaine (Lidoderm) 1 ea TD DAILY [facility] Last Admin: 02/17/18 10:42 Dose: 1 ea Metolazone (Zaroxolyn) 2.5 mg PO DAILY [facility] Last Admin: 02/17/18 09:04 Dose: 2.5 mg Metoprolol Succinate (Toprol Xl) 100 mg PO BRK [facility] Last Admin: 02/17/18 09:02 Dose: 100 mg Oxybutynin Chloride (Ditropan Tab) 10 mg PO DAILY [facility] Last Admin: 02/17/18 09:02 Dose: 10 mg Pantoprazole Sodium (Protonix Ec Tab) 20 mg PO 0600 [facility] Last Admin: 02/17/18 05:42 Dose: 20 mg Pregabalin (Lyrica) 200 mg PO DAILY [facility] Last Admin: 02/17/18 09:03 Dose: 200 mg Primidone (Mysoline) 50 mg PO DAILY [facility] Last Admin: 02/17/18 09:03 Dose: 50 mg Vitamin B Complex/Vit C/Folic Acid (Nephro-Holland) 1 tab PO 0800 [facility] Last Admin: 02/17/18 09:02 Dose: 1 tab - Labs Labs: 02/17/18 10:00 02/17/18 10:00 PT 14.8 SECONDS (9.4-12.5) H 02/12/18 06:00 INR 1.28 02/12/18 06:00 Attending/Attestation - Attestation I have personally seen and examined this patient.: Yes I have fully participated in the care of the patient.: Yes I have reviewed all pertinent clinical information, including history, physical exam and plan: Yes Notes (Text): This is an addendum to GI progress report dictated by the GI Fellow.The patient was seen and examined earlier. Medical records, lab studies, imagings were reviewed. Last 24 hours events reviewed. Agreed with the above treatment plan as outlined in GI Fellow 's notes with the addition of the following This patient has a history of colorectal cancer status post surgery admitted with a shortness of breath pneumonia has multiple co-morbidities status post transfusion Will schedule for EGD colonscopy when optimized High risk patient for endo procedures May need to be intubated 02/17/18 18:27
--- NOTE | 2018-02-17 13:45 | PN ---
DATE: 02/17/2018 FOLLOWUP SUBJECTIVE: The patient is still short of breath. She denies any leg pain or chest pain. PHYSICAL EXAMINATION: VITAL SIGNS: Blood pressure 188/60, heart rate 72, temperature 98, respirations 18. HEENT: Normocephalic. CHEST: Minimal basilar rhonchi. HEART: S1 and S2 regular. ABDOMEN: Soft. EXTREMITIES: +1 pitting edema. LABORATORY DATA: Hemoglobin and hematocrit 9.6 and 33.2. White count and platelet count are within normal limit. Today's SMA-7: Sodium 140, potassium 4.7, chloride 98, CO2 of 36, glucose is 138, BUN 59, creatinine 2. ASSESSMENT: 1. Worsening renal insufficiency. 2. Diastolic left ventricular dysfunction. 3. Bilateral pneumonia. 4. Anemia, status post red blood cells transfusion. 5. History of rectal cancer, status post resection and chemotherapy. 6. History of deep venous thrombosis and pulmonary embolism in the past. 7. Coronary artery disease with history of circumflex artery stenting in the past. RECOMMENDATIONS: Continue hydralazine 100 mg t.i.d., Brovana 15 mcg inhalation every 12 hours, Ditropan 10 mg once a day, aspirin 81 mg once a day, Eliquis 2.5 mg twice a day, Imdur 60 mg once a day, Lasix 40 mg p.o. once a day, Lipitor 20 mg at bedtime, Norvasc 10 mg once a day, Toprol-XL 100 mg once a day, Zaroxolyn 2.5 mg once a day, Zithromax 250 mg orally once a day. Gildardo Barry MD
[2018-02-18] MEDS: Insulin Detemir 100 units/ml Vial (Levemir) SC SCH ×2 (01:09→12:32)
--- NOTE | 2018-02-18 01:53 | PN ---
DATE: 02/17/2018 REFERRING PHYSICIAN: Dr. Andre. SUBJECTIVE: She is out of bed to chair. Night was unremarkable, tolerated noninvasive ventilation, valve has some pressure, skin irritation on the nose. Breathing is better. Cough is better. No nausea, no vomiting, no diarrhea. No leg pain. OBJECTIVE: GENERAL: In no acute distress. VITAL SIGNS: Temperature is 98, heart rate is 88, respiratory rate is 18, blood pressure 164/66, pulse ox 95% on nasal cannula while sitting up. HEENT: Moist mucous membrane. Crowded airway. NECK: Supple. No JVD. LUNGS: Have a few scattered rhonchi. HEART: S1 and S2. ABDOMEN: Soft, nontender, no organomegaly. EXTREMITIES: Trace edema. NEUROLOGIC: Awake, alert. Follows simple command. MEDICATIONS: She is on Mucomyst 20% inhaled every 12 hours, hydralazine 100 mg three times a day, Brovana inhaled twice a day, Ditropan 10 mg daily, vitamin D 50,000 units weekly, Ecotrin 81 mg daily, Eliquis 2.5 mg twice a day, ferrous gluconate 325 mg three times a day, Imdur 60 mg daily, IV iron 200 mg daily, Lasix 40 mg daily, Levemir 20 units subcu every 12 hours, Lidoderm patch to affected area, Lipitor 20 mg daily, Lyrica 200 mg daily, primidone 50 mg daily, vitamin B complex daily, Norvasc 10 mg daily, Protonix 20 mg daily, Pulmicort inhaled twice a day, Toprol XL 100 mg daily, Zaroxolyn 2.5 mg daily, Zithromax 250 mg daily. LABORATORY DATA: Shows hemoglobin 9.6, hematocrit 33.2, WBC 7.2, platelet count is 342. Sodium 140, potassium 4.7, chloride 98, bicarbonate 36, BUN 59, creatinine 2, glucose 138, calcium 8.9, phosphorus 5.2, magnesium 1.8, AST 22, ALT 13, alk phos is 108. Albumin is 3.1. Microbiology, blood culture, urine culture, there is no growth. IMPRESSION AND PLAN: Chronic respiratory failure; hypoventilation syndrome; multilobar pneumonia; chronic lung disease; morbid obesity; coronary artery disease; cardiomyopathy with history of pulmonary embolism; history of deep vein thrombosis; renal failure, slowly improving; colorectal cancer requiring resection and chemotherapy, has a colostomy. Pulmonary point of view, much improved. Continue bronchodilator, antibiotics, gastric prophylaxis, anticoagulation. We will get PA and lateral chest x-ray to assess the improvement of pneumonia. Also spoke to nursing staff, they requested for respiratory therapist to use gel pad under the CPAP mask. Thank you and we will follow with you. Pamela Ayala MD
[2018-02-18] MEDS: Pantoprazole 20 mg EC Tab PO SCH (06:01)
--- NOTE | 2018-02-18 06:20 | CP.PCM.PN ---
Subjective - Date & Time of Evaluation Date of Evaluation: 02/18/18 Time of Evaluation: 05:58 - Subjective Subjective: Zackery Naqvi DO PGY-1, Internal Medicine Resident. Hospitalist Progress Note Patient seen and examined at bedside. Patient is still on BiPAP at day and night , improved her breathing pattern. No respiratory distress. Slept well. No acute events overnight. She is not ambulating out of bed. Patient denied CP, palpitations, headache, fever. ROS is otherwise negative Objective - Vital Signs/Intake and Output Vital Signs (last 24 hours): Temp Pulse Resp BP Pulse Ox 98.2 F 77 20 136/65 98 02/18/18 00:01 02/18/18 02:00 02/18/18 00:01 02/18/18 00:01 02/18/18 00:01 Intake and Output: 02/17/18 02/18/18 18:59 06:59 Intake Total 1260 Output Total 750 Balance 510 - Medications Medications: Current Medications Acetylcysteine (Acetylcysteine 20%) 3 ml INH [id number] Last Admin: 02/17/18 19:16 Dose: 3 ml Amlodipine Besylate (Norvasc) 10 mg PO DAILY JR Last Admin: 02/17/18 09:03 Dose: 10 mg Apixaban (Eliquis) 2.5 mg PO BID JR PRN Reason: Protocol Last Admin: 02/17/18 18:04 Dose: 2.5 mg Arformoterol Tartrate (Brovana) 15 mcg IH [id number] JR Last Admin: 02/17/18 19:17 Dose: 15 mcg Aspirin (Ecotrin) 81 mg PO DAILY JR Last Admin: 02/17/18 09:04 Dose: 81 mg Atorvastatin Calcium (Lipitor) 20 mg PO HS JR Last Admin: 02/17/18 22:21 Dose: 20 mg Azithromycin (Zithromax) 250 mg PO DAILY JR PRN Reason: Protocol Last Admin: 02/17/18 15:18 Dose: 250 mg Budesonide (Pulmicort Respules) 0.5 mg IH [id number] JR Last Admin: 02/17/18 19:17 Dose: 0.5 mg Dextrose (Dextrose 50% Inj) 0 ml IV STAT PRN; Protocol PRN Reason: Hypoglycemia Protocol Ergocalciferol (Drisdol 50,000 Intl Units Cap) 1 cap PO Q7D [facility] Last Admin: 02/11/18 15:18 Dose: 1 cap Ferrous Gluconate (Fergon) 324 mg PO TID [facility] Last Admin: 02/17/18 18:04 Dose: 324 mg Furosemide (Lasix) 40 mg PO DAILY [facility] Last Admin: 02/17/18 09:03 Dose: 40 mg Hydralazine HCl (Apresoline) 100 mg PO TID [facility] Last Admin: 02/17/18 18:04 Dose: 100 mg Dextrose (Dextrose 5% In Water 1000 Ml) 1,000 mls @ 0 mls/hr IV .Q0M PRN; Protocol; Per Protocol PRN Reason: Hypoglycemia Protocol Iron Sucrose 200 mg/ Sodium (Chloride) 110 mls @ 110 mls/hr IVPB DAILY [facility] Stop: 02/18/18 10:59 Last Admin: 02/17/18 09:53 Dose: 110 mls/hr Insulin Detemir (Levemir) 20 unit SC Q12H [facility] Last Admin: 02/18/18 01:09 Dose: 20 units Insulin Human Regular (Humulin R Low) 0 units SC ACHS [facility] PRN Reason: Protocol Last Admin: 02/17/18 22:17 Dose: Not Given Isosorbide Mononitrate (Imdur) 60 mg PO DAILY [facility] Last Admin: 02/17/18 09:02 Dose: 60 mg Lidocaine (Lidoderm) 1 ea TD DAILY [facility] Last Admin: 02/17/18 10:42 Dose: 1 ea Metolazone (Zaroxolyn) 2.5 mg PO DAILY [facility] Last Admin: 02/17/18 09:04 Dose: 2.5 mg Metoprolol Succinate (Toprol Xl) 100 mg PO BRK [facility] Last Admin: 02/17/18 09:02 Dose: 100 mg Oxybutynin Chloride (Ditropan Tab) 10 mg PO DAILY [facility] Last Admin: 02/17/18 09:02 Dose: 10 mg Pantoprazole Sodium (Protonix Ec Tab) 20 mg PO 0600 [facility] Last Admin: 02/18/18 06:01 Dose: 20 mg Pregabalin (Lyrica) 200 mg PO DAILY [facility] Last Admin: 02/17/18 09:03 Dose: 200 mg Primidone (Mysoline) 50 mg PO DAILY [facility] Last Admin: 02/17/18 09:03 Dose: 50 mg Vitamin B Complex/Vit C/Folic Acid (Nephro-Holland) 1 tab PO 0800 JR Last Admin: 02/17/18 09:02 Dose: 1 tab - Labs Labs: 02/17/18 10:00 02/17/18 10:00 PT 14.8 SECONDS (9.4-12.5) H 02/12/18 06:00 INR 1.28 02/12/18 06:00 - Additional Findings Additional findings: - Constitutional Appears: In Acute Distress - Head Exam Head Exam: ATRAUMATIC, NORMOCEPHALIC - Eye Exam Eye Exam: EOMI, Normal appearance, PERRL Pupil Exam: NORMAL ACCOMODATION, PERRL - ENT Exam ENT Exam: Mucous Membranes Moist, Normal Exam - Neck Exam Neck Exam: Full ROM, Normal Inspection. absent: Lymphadenopathy - Respiratory Exam Respiratory Exam: improving Breath Sounds, No Respiratory Distress - Cardiovascular Exam Cardiovascular Exam: REGULAR RHYTHM, +S1, +S2. absent: Murmur - GI/Abdominal Exam GI & Abdominal Exam: Soft, Normal Bowel Sounds. absent: Tenderness - Extremities Exam Extremities Exam: Pedal Edema. absent: Calf Tenderness - Back Exam Back Exam: muscle spasm, paraspinal tenderness. absent: CVA tenderness (L), CVA tenderness (R) - Neurological Exam Neurological Exam: Alert, Awake, CN II-XII Intact, Oriented x3 - Psychiatric Exam Psychiatric exam: Normal Affect, Normal Mood - Skin Skin Exam: Dry, Intact, Normal Color, Warm Assessment and Plan - Assessment and Plan (Free Text) Assessment: 62 y/o female with PMH of HTN, DM2, HLD CAD with stents palced, COPD, PE/ DVT, renal failure, chronic renal insufficiency, anemia, colorectal ca s/p resection with colostomy, morbid obesity, SUMMER, chronic back pain admitted for intractable back pain s/p fall at home. Found to have right sided pneumonia, SHELBI on CKD, acute on chronic respiratory failure, anemia with drop in H/H. On BiPAP intermittently during night and daytime. Plan: Multilobar Pneumonia -CXR showed right multilobar pneumonia -CT chest: multifocal infiltrate right>left -Azithromycin switched to PO -Rocephin discontinued -Blood culture negative to date -procalcitonin 1.59 on 02/13 Acute on chronic respiratory failure -Breathing patterned improving -On BiPAP during sleep and high-flow during daytime as per pulmonology recs -ABG in AM still consistently hypercapnic -Pulmonology consulted Dr Ayala: continue abx and bronchodilator -Duplex LE U/S negative for DVT Anemia -normochromic normocytic. likely 2/2 chronic disease -H/H dropped from 9/29.7 to 7.9/27 in one day -PRBCs transfusion. 1 unit given. follow H/H 9.2/30.9 today -patient is asymptomatic -Iron 26, TIBC 192, 14% saturation -Venofir 200 mg -FOBT positive -h/o colon cancer s/p patial colectomy with colostomy (2013) -As per GI consult, continue medical management, endoscopy in question, will discuss with other consultants -Retic count 0.85 -CEA 5.4 -Monitor ostomy site output for melena and blood. continue anticoagulants SHELBI on CKD stage 3 - BUN/Cr is 48/1.8 at admission. remains elevated - Microalbumin/Cr >1700 - continue with IV lasix 40 QD - Increased hydralazine 50 tid - hold ACEI/ARB due to recent SHELBI - started iron supplements, MVI and weekly Vit D - avoid nephrotoxins/NSAIDs/ iodinated contrast Chronic back pain -Likely 2/2 morbid obesity. BMI>55. immobilization -Medical management with oxycontin and dilaudid by PMD, multiple steroid injections with recurrent symptoms -L/S spine MRI ordered to r/o hematoma being on anticoagulation. Patient couldn' t fit in MRI machine. will be done outpatient -Lidoderm patch to back -Percocet 5/325 mg PO Q6H PRN pain -Thoracic/Lumbar XR: no compression fracture S/P fall -Patient felt dizzy after taking 2 dilaudid doses by mistake. no injuries reported -Head CT shows no acute intracranial hge -Per physical therapy note: patient to go for [facility]. Patient [place] [facility] [place] with PT service -Will talk to continuous pillowcase cutter tomorrow for possible TSU transfer Hyperlipidemia - continue home atorvastatin - lipid panel wnl UTI - no leukocytosis - small leukocyte esterase, urine WBCs 15-20 - urine culture, blood culture x2 -Essential Tremors - continue pramidone as per PMD Hypertension - continue home meds amlodipine, hydralazine, metoprolol - patient has multiple episodes of hypertensive urgencies controlled with hydralazine, lasix DM2 -accucheck -Hgb A1c 7.4 -Levimir 20u q12hr started -ISS CHF -continue metoprolol, eliquis -cardiology on board. -Duplex LE U/S: negative for DVT, 2x3 cm fluid collection in R popliteal fossa consistent with Godinez's cyst -Echo (08/2017) showed LVEF of 53.0%. Moderate concentric LVH -BNP 6280 -started on zaroxolyn 2.5mg BID as per nephro -continue I/O, +balance of 250-650 Patient was not accepted at [place] unit at [facility] [place]. She also refused outside [facility] because they are not clean. Patient chose to go home with PT services. Possible discharge tomorrow. GI ppx:protonix heart healthy diet Head elevation Case reviewed and plan discussed with attending physician Dr. Fernandez
[2018-02-18 06:52] LABS: HEMOGLOBIN 8.8 g/dL (12.0-16.0); MEAN CELL VOLUME 85.6 fl (80.0-105.0); MEAN CORPUSCULAR HEMOGLOBIN 24.3 pg (25.0-35.0); MEAN CORPUSCULAR HGB CONC 28.4 g/dl (31.0-37.0); MEAN PLATELET VOLUME 11.2 fl (7.0-11.0); RBC 3.62 10^6/uL (3.5-6.1); RED CELL DISTRIBUTION WIDTH 15.5 % (11.5-14.5); WHITE BLOOD COUNT 6.9 10^3/ul (4.5-11.0)
[2018-02-18 07:04] LABS: ALB/GLOB RATIO 0.9 (1.1-1.8); ALBUMIN 2.9 g/dL (3.0-4.8); CALCIUM 8.6 mg/dL (8.4-10.5)
[2018-02-18] MEDS: Arformoterol 15 mcg/2 ml Inh Sol IH SCH ×2 (07:51→19:55)
[2018-02-18] MEDS: Acetylcysteine 20% Inhal Soln (4ml) INH SCH ×2 (07:51→19:55)
[2018-02-18] MEDS: Budesonide 0.5 mg/2 ml Inhal Susp UD IH SCH ×2 (07:54→19:56)
--- NOTE | 2018-02-18 08:37 | RAD ---
HISTORY: COMPARISON: 02/11/2018 TECHNIQUE: Chest PA and lateral FINDINGS: LINES AND TUBES: The right MediPort terminates in the SVC. LUNG AND PLEURA: The lungs are well inflated. There is interval improved aeration in the upper lobes with residual airspace disease in the right lower lobe. There is airspace disease in the left lower lobe. No pleural effusion or pneumothorax. HEART AND MEDIASTINUM: Mild cardiomegaly. The hilar and mediastinal contours are within normal limits. SKELETAL STRUCTURES: The bony structures are within normal limits for the patient's age. VISUALIZED UPPER ABDOMEN: Normal. OTHER FINDINGS: None. IMPRESSION: Interval improved aeration in both lungs with residual airspace disease in both lower lobes, worse on the right.
[2018-02-18] MEDS: Multivitamin Vitamin B Complex (Nephro-Vite) Tab PO SCH (08:45)
[2018-02-18] MEDS: Insulin Reg-LOW-Coverage SC SCH ×5 (08:45→22:00)
[2018-02-18] MEDS: Metoprolol Succinate 100 mg XL Tab PO SCH (08:45)
[2018-02-18] MEDS ORDERED: Oxycodone/Acetaminophen 5/325 mg Tab PO ONE (09:48)
[2018-02-18] MEDS: Lidocaine 5% Patch TD SCH (10:15)
--- NOTE | 2018-02-18 13:19 | PN ---
DATE: 02/18/2018 SUBJECTIVE: The patient's shortness of breath has improved. She is experiencing numbness and tremors in both hands. PHYSICAL EXAMINATION: VITAL SIGNS: Blood pressure 190/69, heart rate is 80, temperature 98.9, respirations 20. HEENT: Normocephalic. CHEST: Minimal rhonchi. HEART: S1 and S2 regular. EXTREMITIES: Non-pitting edema. LABORATORY DATA: Today's hemoglobin and hematocrit 8.8 and 31. White count and platelet count are within normal limits. Today's BUN and creatinine is 63 and 2.3, glucose 226. ASSESSMENT: 1. Pneumonia. 2. Worsening renal insufficiency. 3. Hypertension. 4. Coronary artery disease with history of percutaneous coronary intervention to circumflex artery. 5. History of deep venous thrombosis and pulmonary embolism in the past. This current venous Doppler study is negative. RECOMMENDATIONS: Discontinue Zaroxolyn and Lasix. Continue aspirin 81 mg once a day, Eliquis 2.5 mg twice a day, Imdur 60 mg once a day, Norvasc 10 mg once a day, Toprol-XL 100 mg once a day, oral Zithromax 250 mg daily. Start clonidine at 0.1 mg t.i.d. Gildardo Barry MD
[2018-02-18] MEDS: Ergocalciferol 50,000 Intl Units Cap PO SCH (13:31)
--- NOTE | 2018-02-18 16:08 | CP.PCM.PN ---
<Caio Stokes - Last Filed: 02/18/18 16:05> Subjective - Date & Time of Evaluation Date of Evaluation: 02/18/18 Time of Evaluation: 16:05 - Subjective Subjective: GI Fellow PGY4 Patient is doing well relatively. No reports of bleeding. Brown stool in colostomy bag. Objective - Vital Signs/Intake and Output Vital Signs (last 24 hours): Temp Pulse Resp BP Pulse Ox 98.9 F 88 20 134/67 97 02/18/18 06:00 02/18/18 13:30 02/18/18 06:00 02/18/18 13:30 02/18/18 06:00 Intake and Output: 02/18/18 02/18/18 06:59 18:59 Intake Total 1360 Output Total 750 Balance 610 - Medications Medications: Current Medications Acetylcysteine (Acetylcysteine 20%) 3 ml INH [id number] [facility] Last Admin: 02/18/18 07:51 Dose: 3 ml Amlodipine Besylate (Norvasc) 10 mg PO DAILY [facility] Last Admin: 02/18/18 10:16 Dose: 10 mg Apixaban (Eliquis) 2.5 mg PO BID JR PRN Reason: Protocol Last Admin: 02/18/18 10:16 Dose: 2.5 mg Arformoterol Tartrate (Brovana) 15 mcg IH [id number] JR Last Admin: 02/18/18 07:51 Dose: 15 mcg Aspirin (Ecotrin) 81 mg PO DAILY JR Last Admin: 02/18/18 10:16 Dose: 81 mg Atorvastatin Calcium (Lipitor) 20 mg PO HS [facility] Last Admin: 02/17/18 22:21 Dose: 20 mg Azithromycin (Zithromax) 250 mg PO DAILY JR PRN Reason: Protocol Last Admin: 02/18/18 10:16 Dose: 250 mg Budesonide (Pulmicort Respules) 0.5 mg IH [id number] [facility] Last Admin: 02/18/18 07:54 Dose: 0.5 mg Clonidine HCl (Catapres) 0.1 mg PO TID JR Last Admin: 02/18/18 13:29 Dose: 0.1 mg Dextrose (Dextrose 50% Inj) 0 ml IV STAT PRN; Protocol PRN Reason: Hypoglycemia Protocol Ergocalciferol (Drisdol 50,000 Intl Units Cap) 1 cap PO Q7D [facility] Last Admin: 02/18/18 13:31 Dose: 1 cap Ferrous Gluconate (Fergon) 324 mg PO TID [facility] Last Admin: 02/18/18 13:31 Dose: 324 mg Hydralazine HCl (Apresoline) 100 mg PO TID [facility] Last Admin: 02/18/18 13:30 Dose: 100 mg Dextrose (Dextrose 5% In Water 1000 Ml) 1,000 mls @ 0 mls/hr IV .Q0M PRN; Protocol; Per Protocol PRN Reason: Hypoglycemia Protocol Insulin Detemir (Levemir) 20 unit SC Q12H [facility] Last Admin: 02/18/18 12:32 Dose: 20 units Insulin Human Regular (Humulin R Low) 0 units SC ACHS [facility] PRN Reason: Protocol Last Admin: 02/18/18 12:32 Dose: 1 unit Isosorbide Mononitrate (Imdur) 60 mg PO DAILY [facility] Last Admin: 02/18/18 10:16 Dose: 60 mg Lidocaine (Lidoderm) 1 ea TD DAILY [facility] Last Admin: 02/18/18 10:15 Dose: 1 ea Metoprolol Succinate (Toprol Xl) 100 mg PO BRK [facility] Last Admin: 02/18/18 08:45 Dose: 100 mg Oxybutynin Chloride (Ditropan Tab) 10 mg PO DAILY [facility] Last Admin: 02/18/18 10:17 Dose: 10 mg Pantoprazole Sodium (Protonix Ec Tab) 20 mg PO 0600 [facility] Last Admin: 02/18/18 06:01 Dose: 20 mg Pregabalin (Lyrica) 200 mg PO DAILY [facility] Last Admin: 02/18/18 10:15 Dose: 200 mg Primidone (Mysoline) 50 mg PO DAILY [facility] Last Admin: 02/18/18 10:16 Dose: 50 mg Vitamin B Complex/Vit C/Folic Acid (Nephro-Holland) 1 tab PO 0800 [facility] Last Admin: 02/18/18 08:45 Dose: 1 tab - Labs Labs: 02/18/18 06:00 02/18/18 06:00 PT 14.8 SECONDS (9.4-12.5) H 02/12/18 06:00 INR 1.28 02/12/18 06:00 - Constitutional Appears: No Acute Distress - Eye Exam Eye Exam: Normal appearance - ENT Exam ENT Exam: Mucous Membranes Moist - Respiratory Exam Respiratory Exam: Clear to Ausculation Bilateral. absent: NORMAL BREATHING PATTERN - Cardiovascular Exam Cardiovascular Exam: REGULAR RHYTHM - GI/Abdominal Exam GI & Abdominal Exam: Soft, Normal Bowel Sounds. absent: Tenderness Additional comments: Brown stool in colostomy bag Assessment and Plan - Assessment and Plan (Free Text) Assessment: Very complex 62F with extensive history including cardiopulmonary disease, rectal CA s/p chemoradiation 2013 now presenting with fall. We were consulted for anemia with FOBT+. #Chronic anemia - Ranges from 8 to 10 over the last two years. Likely multifactorial (chronic disease, CKD). Unlikely GI bleed at this time. On OAC. #Hx of rectal CA (2013) s/p chemoradiation and colostomy - CEA 2014 normal. 4.4, elevated. PET scan 2016 - No systemic disease. #DVT/PE - On Eliquis #Acute on chronic hypercapnic respiratory failure #Pulmonary HTN #Sepsis - UTI/PNA #Morbid obesity #SUMMER #T2DM #HTN #SHELBI on CKD PLAN: -Very complex, non-compliant patient currently with acute on chronic conditions. She is at very high risk for intraoperative complication. Will need to discuss with primary, anesthesia, cardiology, pulmonology before any endoscopic procedures to be done. No planned procedures at this time. -CT reviewed w/o oral or IV contrast. -Optimize clinical conditions -Continue PPI -Would continue OAC consider previous b/l PE and no signs of major bleed at this time. However, she must be monitored closely. -Trend Hb daily. Monitor ostomy site output for melena, bloody. -CEA 5.4, minimally elevated compared to previous. <Gita Benitez V - Last Filed: 02/18/18 22:47> Objective - Vital Signs/Intake and Output Vital Signs (last 24 hours): Temp Pulse Resp BP Pulse Ox 98.7 F 82 20 161/62 H 94 L 02/18/18 14:00 02/18/18 17:04 02/18/18 14:00 02/18/18 17:04 02/18/18 14:00 Intake and Output: 02/18/18 02/19/18 18:59 06:59 Intake Total 540 Balance 540 - Medications Medications: Current Medications Acetylcysteine (Acetylcysteine 20%) 3 ml INH [id number] [facility] Last Admin: 02/18/18 19:55 Dose: 3 ml Amlodipine Besylate (Norvasc) 10 mg PO DAILY [facility] Last Admin: 02/18/18 10:16 Dose: 10 mg Apixaban (Eliquis) 2.5 mg PO BID [facility] PRN Reason: Protocol Last Admin: 02/18/18 17:03 Dose: 2.5 mg Arformoterol Tartrate (Brovana) 15 mcg IH [id number] [facility] Last Admin: 02/18/18 19:55 Dose: 15 mcg Aspirin (Ecotrin) 81 mg PO DAILY [facility] Last Admin: 02/18/18 10:16 Dose: 81 mg Atorvastatin Calcium (Lipitor) 20 mg PO HS [facility] Last Admin: 02/18/18 22:15 Dose: 20 mg Azithromycin (Zithromax) 250 mg PO DAILY [facility] PRN Reason: Protocol Last Admin: 02/18/18 10:16 Dose: 250 mg Budesonide (Pulmicort Respules) 0.5 mg IH [id number] [facility] Last Admin: 02/18/18 19:56 Dose: 0.5 mg Clonidine HCl (Catapres) 0.1 mg PO TID [facility] Last Admin: 02/18/18 17:03 Dose: 0.1 mg Dextrose (Dextrose 50% Inj) 0 ml IV STAT PRN; Protocol PRN Reason: Hypoglycemia Protocol Ergocalciferol (Drisdol 50,000 Intl Units Cap) 1 cap PO Q7D [facility] Last Admin: 02/18/18 13:31 Dose: 1 cap Ferrous Gluconate (Fergon) 324 mg PO TID [facility] Last Admin: 02/18/18 17:03 Dose: 324 mg Furosemide (Lasix) 40 mg PO DAILY [facility] Hydralazine HCl (Apresoline) 100 mg PO TID [facility] Last Admin: 02/18/18 17:04 Dose: 100 mg Dextrose (Dextrose 5% In Water 1000 Ml) 1,000 mls @ 0 mls/hr IV .Q0M PRN; Protocol; Per Protocol PRN Reason: Hypoglycemia Protocol Insulin Detemir (Levemir) 20 unit SC Q12H [facility] Last Admin: 02/18/18 12:32 Dose: 20 units Insulin Human Regular (Humulin R Low) 0 units SC ACHS [facility] PRN Reason: Protocol Last Admin: 02/18/18 17:10 Dose: Not Given Isosorbide Mononitrate (Imdur) 60 mg PO DAILY [facility] Last Admin: 02/18/18 10:16 Dose: 60 mg Lidocaine (Lidoderm) 1 ea TD DAILY [facility] Last Admin: 02/18/18 10:15 Dose: 1 ea Metolazone (Zaroxolyn) 2.5 mg PO DAILY [facility] Metoprolol Succinate (Toprol Xl) 100 mg PO BRK [facility] Last Admin: 02/18/18 08:45 Dose: 100 mg Oxybutynin Chloride (Ditropan Tab) 10 mg PO DAILY [facility] Last Admin: 02/18/18 10:17 Dose: 10 mg Pantoprazole Sodium (Protonix Ec Tab) 20 mg PO 0600 [facility] Last Admin: 02/18/18 06:01 Dose: 20 mg Pregabalin (Lyrica) 200 mg PO DAILY [facility] Last Admin: 02/18/18 10:15 Dose: 200 mg Primidone (Mysoline) 50 mg PO DAILY [facility] Last Admin: 02/18/18 10:16 Dose: 50 mg Vitamin B Complex/Vit C/Folic Acid (Nephro-Holland) 1 tab PO 0800 [facility] Last Admin: 02/18/18 08:45 Dose: 1 tab - Labs Labs: 02/18/18 06:00 02/18/18 06:00 PT 14.8 SECONDS (9.4-12.5) H 02/12/18 06:00 INR 1.28 02/12/18 06:00 Attending/Attestation - Attestation I have personally seen and examined this patient.: Yes I have fully participated in the care of the patient.: Yes I have reviewed all pertinent clinical information, including history, physical exam and plan: Yes Notes (Text): This is an addendum to GI progress report dictated by the GI Fellow.The patient was seen and examined earlier. Medical records, lab studies, imagings were reviewed. Last 24 hours events reviewed. Agreed with the above treatment plan as outlined in GI Fellow 's notes with the addition of the following No episodes of bleeding per rectum or vomiting Tolerating diet Multiple comordities High risk for endoscopic procedures Recommended for EGD and colon when optimized 02/18/18 22:46
--- NOTE | 2018-02-18 18:58 | PN ---
DATE: 02/18/2018 PULMONARY PROGRESS NOTE REFERRING PHYSICIAN: Dr. Andre. SUBJECTIVE: She is lying in the bed, head at 45 degrees, on nasal cannula oxygen, tolerated noninvasive ventilation well at nighttime and while sleeping. Cough and shortness breath better. No nausea, vomiting, or diarrhea. OBJECTIVE: GENERAL: In no acute distress. VITAL SIGNS: Temperature is 98, heart rate 82, respiratory rate is 20, blood pressure 161/62, pulse ox 94% on nasal cannula. HEENT: Moist mucous membranes. Crowded airway. NECK: Supple. No JVD. LUNGS: A fair airflow with rhonchi. HEART: S1 and S2. ABDOMEN: Soft and nontender. No organomegaly. EXTREMITIES: Trace edema. NEUROLOGIC: Awake, alert, and follows simple command. MEDICATIONS: She is on Mucomyst 20% inhaled twice a day, hydralazine 100 mg three times a day, Brovana inhaled twice a day, clonidine 0.1 mg three times a day, Ditropan 10 mg daily, vitamin D 50,000 units every 7 days, Ecotrin 81 mg daily, Eliquis 2.5 mg twice a day, ferrous gluconate 325 mg three times a day, insulin coverage, Imdur 60 mg daily, Levemir 20 units subcu every 12 hours, lidocaine patch at affected area, Lipitor 20 mg at bedtime, Lyrica 200 mg daily, primidone 50 mg daily. Vitamin C, B, and folic acid daily. Norvasc 10 mg daily, Protonix 40 mg daily, Pulmicort inhaled twice a day, Toprol XL 100 mg daily, Zithromax 250 mg daily. LABORATORY DATA: Shows hemoglobin 8.8, hematocrit 31, WBC 6.9, and platelets 358. Sodium 138, potassium 4.9, chloride 98, bicarbonate 37. BUN 63, creatinine 2.3. Glucose 226. Calcium is 8.6. AST 29, ALT 13, alk phos is 97. Albumin is 2.9. Microbiology: Blood culture and urine culture, there is no growth. Chest x-ray done yesterday shows decreased infiltrate, still have a basilar infiltrate. IMPRESSION AND PLAN: Chronic obstructive lung disease, hypoventilation syndrome, multilobar pneumonia, morbid obesity, coronary artery disease, cardiomyopathy, history of pulmonary embolism and deep vein thrombosis in the remote past, renal insufficiency, history of colorectal cancer requiring resection and chemotherapy, has a colostomy. Pulmonary point of view, doing better, actually is improved. Spoke to therapist and nursing staff. Continue noninvasive ventilation while sleeping. Anticoagulation, gastric prophylaxis, fall precaution. Out of bed to chair. Thank you and we will follow with you. Pamela Ayala MD
[2018-02-18 23:17] VITALS: RESP 18
[2018-02-19] MEDS: Insulin Detemir 100 units/ml Vial (Levemir) SC SCH ×2 (01:04→12:35)
--- NOTE | 2018-02-19 01:13 | PN ---
DATE: 02/18/2018 SUBJECTIVE: The patient is seen lying in bed. She is awake and alert. She reports feeling little bit better. She still have some shortness of breath. She denies any abdominal pain. She denies any nausea or vomiting. She complains of some dysuria. PHYSICAL EXAMINATION: GENERAL: Obese, elderly lady lying in bed. VITAL SIGNS: Blood pressure 134/67, heart rate 88, respiratory rate 20, temperature 98.7. HEENT: Normocephalic, atraumatic, positive pallor. NECK: Supple, no JVD. LUNGS: Bilateral equal air entry, bilateral equal expansion. CARDIAC: S1, S2, regular rate and rhythm, no murmur, no rub. ABDOMEN: Obese, distended, soft, positive colostomy, bowel sounds present. EXTREMITIES: 2+ pitting edema of the lower extremities. INTAKE AND OUTPUT: 1360/750. LABORATORY DATA: WBC 6.9, hemoglobin 8.8, hematocrit 31, platelets 358. Sodium 138, potassium 4.9, chloride 98, CO2 of 37, BUN 63, creatinine 2.3, glucose 226, calcium 8.6, albumin 2.9. Blood culture no growth. CURRENT MEDICATIONS: Mucomyst, hydralazine 100 t.i.d., Brovana, Catapres 0.1 t.i.d., Ditropan 10 mg, ergocalciferol, Ecotrin, Eliquis 2.5 b.i.d., Fergon, insulin, Lidoderm, Lipitor, Lyrica, amlodipine, Protonix, Toprol XL 100, Zithromax 250, Venofer 200 mg. ASSESSMENT AND PLAN: 1. Acute kidney injury superimposed on chronic kidney disease, stage III. 2. Hypertension. 3. Bilateral pneumonia. 4. Sleep apnea, chronic obstructive pulmonary disease, CO2 retention, respiratory acidosis. 5. Severe anemia, GI blood loss. 6. Coronary artery disease, history of percutaneous transluminal coronary angioplasty and stent. 7. History of rectal cancer, history of colectomy and colostomy. 8. Hyperlipidemia. 9. Edema. PLAN: 1. Continue to diurese, continue Lasix and Zaroxolyn. 2. Complete antibiotics as per ID recommendations. 3. Complete total of 1 g of iron infusion. 4. Avoid nephrotoxins. 5. Keep outputs greater than inputs. 6. Monitor H and H. Kristine Archibald MD
[2018-02-19] MEDS: Pantoprazole 20 mg EC Tab PO SCH (06:00)
--- NOTE | 2018-02-19 06:27 | CP.PCM.PN ---
Objective - Vital Signs/Intake and Output Vital Signs (last 24 hours): Temp Pulse Resp BP Pulse Ox 97.9 F 68 18 146/58 L 94 L 02/18/18 23:16 02/19/18 02:10 02/18/18 23:16 02/18/18 23:16 02/18/18 23:16 Intake and Output: 02/18/18 02/19/18 18:59 06:59 Intake Total 540 Balance 540 - Medications Medications: Current Medications Acetylcysteine (Acetylcysteine 20%) 3 ml INH [id number] [facility] Last Admin: 02/18/18 19:55 Dose: 3 ml Amlodipine Besylate (Norvasc) 10 mg PO DAILY [facility] Last Admin: 02/18/18 10:16 Dose: 10 mg Apixaban (Eliquis) 2.5 mg PO BID [facility] PRN Reason: Protocol Last Admin: 02/18/18 17:03 Dose: 2.5 mg Arformoterol Tartrate (Brovana) 15 mcg IH [id number] [facility] Last Admin: 02/18/18 19:55 Dose: 15 mcg Aspirin (Ecotrin) 81 mg PO DAILY [facility] Last Admin: 02/18/18 10:16 Dose: 81 mg Atorvastatin Calcium (Lipitor) 20 mg PO HS [facility] Last Admin: 02/18/18 22:15 Dose: 20 mg Azithromycin (Zithromax) 250 mg PO DAILY [facility] PRN Reason: Protocol Last Admin: 02/18/18 10:16 Dose: 250 mg Budesonide (Pulmicort Respules) 0.5 mg IH [id number] [facility] Last Admin: 02/18/18 19:56 Dose: 0.5 mg Clonidine HCl (Catapres) 0.1 mg PO TID [facility] Last Admin: 02/18/18 17:03 Dose: 0.1 mg Dextrose (Dextrose 50% Inj) 0 ml IV STAT PRN; Protocol PRN Reason: Hypoglycemia Protocol Ergocalciferol (Drisdol 50,000 Intl Units Cap) 1 cap PO Q7D [facility] Last Admin: 02/18/18 13:31 Dose: 1 cap Ferrous Gluconate (Fergon) 324 mg PO TID [facility] Last Admin: 02/18/18 17:03 Dose: 324 mg Furosemide (Lasix) 40 mg PO DAILY [facility] Hydralazine HCl (Apresoline) 100 mg PO TID [facility] Last Admin: 02/18/18 17:04 Dose: 100 mg Dextrose (Dextrose 5% In Water 1000 Ml) 1,000 mls @ 0 mls/hr IV .Q0M PRN; Protocol; Per Protocol PRN Reason: Hypoglycemia Protocol Insulin Detemir (Levemir) 20 unit SC Q12H [facility] Last Admin: 02/19/18 01:04 Dose: Not Given Insulin Human Regular (Humulin R Low) 0 units SC ACHS [facility] PRN Reason: Protocol Last Admin: 02/18/18 22:00 Dose: Not Given Isosorbide Mononitrate (Imdur) 60 mg PO DAILY [facility] Last Admin: 02/18/18 10:16 Dose: 60 mg Lidocaine (Lidoderm) 1 ea TD DAILY [facility] Last Admin: 02/18/18 10:15 Dose: 1 ea Metolazone (Zaroxolyn) 2.5 mg PO DAILY [facility] Metoprolol Succinate (Toprol Xl) 100 mg PO BRK [facility] Last Admin: 02/18/18 08:45 Dose: 100 mg Oxybutynin Chloride (Ditropan Tab) 10 mg PO DAILY [facility] Last Admin: 02/18/18 10:17 Dose: 10 mg Pantoprazole Sodium (Protonix Ec Tab) 20 mg PO 0600 [facility] Last Admin: 02/19/18 06:00 Dose: 20 mg Pregabalin (Lyrica) 200 mg PO DAILY [facility] Last Admin: 02/18/18 10:15 Dose: 200 mg Primidone (Mysoline) 50 mg PO DAILY [facility] Last Admin: 02/18/18 10:16 Dose: 50 mg Vitamin B Complex/Vit C/Folic Acid (Nephro-Holland) 1 tab PO 0800 [facility] Last Admin: 02/18/18 08:45 Dose: 1 tab - Labs Labs: 02/18/18 06:00 02/18/18 06:00 PT 14.8 SECONDS (9.4-12.5) H 02/12/18 06:00 INR 1.28 02/12/18 06:00
[2018-02-19 07:21] LABS: ALB/GLOB RATIO 0.9 (1.1-1.8); ALBUMIN 3.1 g/dL (3.0-4.8); CALCIUM 8.9 mg/dL (8.4-10.5)
[2018-02-19 07:23] LABS: MEAN CELL VOLUME 86.3 fl (80.0-105.0); MEAN CORPUSCULAR HEMOGLOBIN 24.7 pg (25.0-35.0); MEAN CORPUSCULAR HGB CONC 28.6 g/dl (31.0-37.0); MEAN PLATELET VOLUME 10.9 fl (7.0-11.0); RBC 3.65 10^6/uL (3.5-6.1); RED CELL DISTRIBUTION WIDTH 15.7 % (11.5-14.5)
[2018-02-19] MEDS: Acetylcysteine 20% Inhal Soln (4ml) INH SCH (07:30)
[2018-02-19] MEDS: Budesonide 0.5 mg/2 ml Inhal Susp UD IH SCH (07:30)
[2018-02-19] MEDS: Arformoterol 15 mcg/2 ml Inh Sol IH SCH (07:31)
[2018-02-19] MEDS: Insulin Reg-LOW-Coverage SC SCH ×2 (08:40→12:35)
[2018-02-19] MEDS: Multivitamin Vitamin B Complex (Nephro-Vite) Tab PO SCH (08:40)
[2018-02-19] MEDS: Metoprolol Succinate 100 mg XL Tab PO SCH (08:40)
[2018-02-19 09:09] VITALS: TEMP 98.3; O2SAT 95
--- NOTE | 2018-02-19 09:43 | CP.PCM.PN ---
<Caio Stokes - Last Filed: 02/19/18 09:40> Subjective - Date & Time of Evaluation Date of Evaluation: 02/19/18 Time of Evaluation: 09:40 - Subjective Subjective: GI Fellow PGY4, No changes in symptoms. No blood in stool. Not ambulating. Objective - Vital Signs/Intake and Output Vital Signs (last 24 hours): Temp Pulse Resp BP Pulse Ox 98.3 F 64 18 149/57 L 95 02/19/18 09:08 02/19/18 09:08 02/19/18 09:08 02/19/18 09:08 02/19/18 09:08 Intake and Output: 02/19/18 02/19/18 06:59 18:59 Intake Total 540 Balance 540 - Medications Medications: Current Medications Acetylcysteine (Acetylcysteine 20%) 3 ml INH [id number] [facility] Last Admin: 02/19/18 07:30 Dose: 3 ml Amlodipine Besylate (Norvasc) 10 mg PO DAILY [facility] Last Admin: 02/18/18 10:16 Dose: 10 mg Apixaban (Eliquis) 2.5 mg PO BID [facility] PRN Reason: Protocol Last Admin: 02/18/18 17:03 Dose: 2.5 mg Arformoterol Tartrate (Brovana) 15 mcg IH [id number] [facility] Last Admin: 02/19/18 07:31 Dose: 15 mcg Aspirin (Ecotrin) 81 mg PO DAILY [facility] Last Admin: 02/18/18 10:16 Dose: 81 mg Atorvastatin Calcium (Lipitor) 20 mg PO HS [facility] Last Admin: 02/18/18 22:15 Dose: 20 mg Azithromycin (Zithromax) 250 mg PO DAILY [facility] PRN Reason: Protocol Last Admin: 02/18/18 10:16 Dose: 250 mg Budesonide (Pulmicort Respules) 0.5 mg IH [id number] [facility] Last Admin: 02/19/18 07:30 Dose: 0.5 mg Clonidine HCl (Catapres) 0.1 mg PO TID [facility] Last Admin: 02/18/18 17:03 Dose: 0.1 mg Dextrose (Dextrose 50% Inj) 0 ml IV STAT PRN; Protocol PRN Reason: Hypoglycemia Protocol Ergocalciferol (Drisdol 50,000 Intl Units Cap) 1 cap PO Q7D [facility] Last Admin: 02/18/18 13:31 Dose: 1 cap Ferrous Gluconate (Fergon) 324 mg PO TID [facility] Last Admin: 02/18/18 17:03 Dose: 324 mg Furosemide (Lasix) 40 mg PO DAILY [facility] Hydralazine HCl (Apresoline) 100 mg PO TID [facility] Last Admin: 02/18/18 17:04 Dose: 100 mg Dextrose (Dextrose 5% In Water 1000 Ml) 1,000 mls @ 0 mls/hr IV .Q0M PRN; Protocol; Per Protocol PRN Reason: Hypoglycemia Protocol Insulin Detemir (Levemir) 20 unit SC Q12H [facility] Last Admin: 02/19/18 01:04 Dose: Not Given Insulin Human Regular (Humulin R Low) 0 units SC ACHS [facility] PRN Reason: Protocol Last Admin: 02/19/18 08:40 Dose: 1 unit Isosorbide Mononitrate (Imdur) 60 mg PO DAILY [facility] Last Admin: 02/18/18 10:16 Dose: 60 mg Lidocaine (Lidoderm) 1 ea TD DAILY [facility] Last Admin: 02/18/18 10:15 Dose: 1 ea Metolazone (Zaroxolyn) 2.5 mg PO DAILY [facility] Metoprolol Succinate (Toprol Xl) 100 mg PO BRK [facility] Last Admin: 02/19/18 08:40 Dose: 100 mg Oxybutynin Chloride (Ditropan Tab) 10 mg PO DAILY [facility] Last Admin: 02/18/18 10:17 Dose: 10 mg Pantoprazole Sodium (Protonix Ec Tab) 20 mg PO 0600 [facility] Last Admin: 02/19/18 06:00 Dose: 20 mg Pregabalin (Lyrica) 200 mg PO DAILY [facility] Last Admin: 02/18/18 10:15 Dose: 200 mg Primidone (Mysoline) 50 mg PO DAILY [facility] Last Admin: 02/18/18 10:16 Dose: 50 mg Vitamin B Complex/Vit C/Folic Acid (Nephro-Holland) 1 tab PO 0800 [facility] Last Admin: 02/19/18 08:40 Dose: 1 tab - Labs Labs: 02/19/18 06:30 02/19/18 06:30 PT 14.8 SECONDS (9.4-12.5) H 02/12/18 06:00 INR 1.28 02/12/18 06:00 - Constitutional Appears: Non-toxic, No Acute Distress, Chronically Ill - Head Exam Head Exam: NORMAL INSPECTION - Eye Exam Eye Exam: Normal appearance - ENT Exam ENT Exam: Mucous Membranes Moist - Respiratory Exam Respiratory Exam: Clear to Ausculation Bilateral. absent: NORMAL BREATHING PATTERN - Cardiovascular Exam Cardiovascular Exam: REGULAR RHYTHM - GI/Abdominal Exam GI & Abdominal Exam: Soft, Normal Bowel Sounds. absent: Tenderness Additional comments: Colostomy bag new, clean, no stool. - Extremities Exam Extremities Exam: Normal Inspection - Neurological Exam Neurological Exam: Alert, Awake, Oriented x3 - Psychiatric Exam Psychiatric exam: Normal Affect, Normal Mood - Skin Skin Exam: Normal Color Assessment and Plan - Assessment and Plan (Free Text) Assessment: Very complex 62F with extensive history including cardiopulmonary disease, rectal CA s/p chemoradiation 2013 now presenting with fall. We were consulted for anemia with FOBT+. #Chronic anemia - Ranges from 8 to 10 over the last two years. Likely multifactorial (chronic disease, CKD). Unlikely GI bleed at this time. On OAC. #Hx of rectal CA (2013) s/p chemoradiation and colostomy - CEA 2014 normal. 4.4, elevated. PET scan 2016 - No systemic disease. #DVT/PE - On Eliquis #Acute on chronic hypercapnic respiratory failure #Pulmonary HTN #Sepsis - UTI/PNA #Morbid obesity #SUMMER #T2DM #HTN #SHELBI on CKD PLAN: -Very complex, non-compliant patient currently with acute on chronic conditions. She is at very high risk for intraoperative complication. Will need to discuss with primary, anesthesia, cardiology, pulmonology before any endoscopic procedures to be done. No planned procedures at this time. -Optimize clinical conditions. no planned endoscopic procedures. -Continue PPI -Would continue OAC consider previous b/l PE and no signs of major bleed at this time. However, she must be monitored closely. -Recommend continue PT. Patient states she is not ambulating. <Gita Benitez V - Last Filed: 02/19/18 22:06> Objective - Vital Signs/Intake and Output Vital Signs (last 24 hours): Temp Pulse Resp BP Pulse Ox 98.3 F 71 18 136/62 95 02/19/18 09:08 02/19/18 14:57 02/19/18 09:08 02/19/18 14:57 02/19/18 09:08 - Labs Labs: 02/19/18 06:30 02/19/18 06:30 PT 14.8 SECONDS (9.4-12.5) H 02/12/18 06:00 INR 1.28 02/12/18 06:00 Attending/Attestation - Attestation I have personally seen and examined this patient.: Yes I have fully participated in the care of the patient.: Yes I have reviewed all pertinent clinical information, including history, physical exam and plan: Yes Notes (Text): This is an addendum to GI progress report dictated by the GI Fellow.The patient was seen and examined earlier. Medical records, lab studies, imagings were reviewed. Last 24 hours events reviewed. Agreed with the above treatment plan as outlined in GI Fellow 's notes with the addition of the following Patient is planned to be transferred to [facility] consider colonoscopy after optimization of patient's condition 02/19/18 22:05
[2018-02-19] MEDS: Lidocaine 5% Patch TD SCH (09:52)
[2018-02-19] MEDS ORDERED: metOLazone 2.5 MG TAB PO SCH (10:00)
--- NOTE | 2018-02-19 12:52 | PN ---
DATE: 02/19/2018 SUBJECTIVE: The patient is currently seen on 5R. She is sitting in a chair. She is scheduled for discharge to subacute rehab later today. She continues to be in positive fluid balance despite receiving diuretics, her BUN and creatinine have trended higher. MEDICATIONS: Medication list reviewed. The patient is on acetylcysteine inhalation therapy, hydralazine, Brovana, clonidine, Ditropan, vitamin D, Ecotrin, Eliquis, ferrous gluconate, insulin, Imdur, p.o. Lasix, Lidoderm, Lipitor, Lyrica, Mysoline, Nephro-Holland, Norvasc, Protonix, Pulmicort Respules, Toprol, p.o. Zaroxolyn, and Zithromax. PHYSICAL EXAMINATION: INTAKE AND OUTPUT: Intake is 1360, output is 750. Her weight is 312 pounds 8 ounces. VITAL SIGNS: Blood pressure is ranging from 149-178 systolic, diastolics ranging from 57-65. Pulse is 80, respiratory rate is 18 with a temperature of 98.3, pulse ox is 95%. HEENT: Shows her to be normocephalic, atraumatic. Conjunctivae remain pale. Sclerae are nonicteric. NECK: Supple. No neck vein distention. CHEST: Clear to auscultation and percussion with decreased breath sounds at bases. No rales, rhonchi, or wheezing. CARDIOVASCULAR: Shows a regular rate and rhythm without audible murmurs, rubs, or gallops. ABDOMEN: Soft. Bowel sounds normal. Positive lower quadrant colostomy. Obese. Nondistended. Bowel sounds normal. No rebound, guarding, or masses. EXTREMITIES: Show arms to be puffy with 1+ pitting edema of her lower extremities bilaterally. LABORATORY DATA AND IMAGING STUDIES: CBC: White blood cell count is 6, hemoglobin stable 9, platelet count is 354,000. Chemistry showed normal electrolytes with the exception of a CO2 of 38, BUN is 68 with a creatinine of 2.3. Glucose is 140. Calcium is 8.9. Last phosphorus was 5.2 with a magnesium level of 1.8. Liver enzymes are normal. Albumin is 3.1. Microbiology, all cultures are negative. ASSESSMENT: 1. Acute renal failure superimposed on chronic kidney disease stage 3. The patient is prerenal in nature. She remains on diuretic therapy for lower extremity edema and hypervolemia. 2. Hypertension with fair control. Blood pressure medications will need to be further adjusted in the outpatient setting at the subacute rehab. The patient presently remains off of ESTEVAN inhibitors and angiotensin receptor blockers because of the elevated BUN and creatinine. 3. Bilateral pneumonia. The patient has been switched over to oral antibiotic therapy in preparation for discharge. All cultures are negative. 4. History of obstructive sleep apnea with chronic obstructive pulmonary disease, CO2 retention, respiratory failure. The patient remains on BiPAP therapy. 5. History of anemia, status post transfusions, stools were positive for blood. The patient is evaluated by GI, an elective endoscopy at some future point in time. Hemoglobin is stable in the 9-10 range. 6. Atherosclerotic heart disease, status post percutaneous transluminal coronary angioplasty and stent. The patient appears stable. 7. History of rectal cancer, status post colectomy with colostomy, stable. 8. Hyperlipidemia. The patient is being maintained on statin therapy. 9. Lower extremity edema with hypervolemia. The patient will continue on oral Lasix therapy together with oral Zaroxolyn therapy. If necessary, we need to increase these medications in the outpatient setting. However, need to closely monitor her BUN and creatinine. PLAN: 1. Continue diuresis with diuretics, discussed with house staff. 2. Continue iron supplementation. 3. GI followup for possible elective endoscopy. 4. Continue chronic anticoagulation with Eliquis. 5. Suggest following outpatient blood work on a frequent basis in light of the fact that she is on double diuretic therapy. Osman Perea MD
--- NOTE | 2018-02-19 14:31 | CP.PCM.DIS ---
Provider - Provider Date of Admission: 02/11/18 01:08 Attending physician: Susanna Andre MD Primary care physician: Elroy Florian MD Consults: cardio nephro ID GI Time Spent in preparation of Discharge (in minutes): 50 Hospital Course - Lab Results Lab Results: Most Recent Lab Values WBC 6.0 10^3/ul (4.5-11.0) 02/19/18 06:30 RBC 3.65 10^6/uL (3.5-6.1) 02/19/18 06:30 Hgb 9.0 g/dL (12.0-16.0) L 02/19/18 06:30 Hct 31.5 % (36.0-48.0) L 02/19/18 06:30 MCV 86.3 fl (80.0-105.0) 02/19/18 06:30 MCH 24.7 pg (25.0-35.0) L 02/19/18 06:30 MCHC 28.6 g/dl (31.0-37.0) L 02/19/18 06:30 RDW 15.7 % (11.5-14.5) H 02/19/18 06:30 Plt Count 354 10^3/uL (120.0-450.0) 02/19/18 06:30 MPV 10.9 fl (7.0-11.0) 02/19/18 06:30 Gran % 56.3 % (50.0-68.0) 02/16/18 06:00 Lymph % (Auto) 29.2 % (22.0-35.0) 02/16/18 06:00 [place] % (Auto) 7.1 % (1.0-6.0) H 02/16/18 06:00 Eos % (Auto) 6.9 % (1.5-5.0) H 02/16/18 06:00 Baso % (Auto) 0.5 % (0.0-3.0) 02/16/18 06:00 Gran # 3.18 (1.4-6.5) 02/16/18 06:00 Lymph # (Auto) 1.7 (1.2-3.4) 02/16/18 06:00 [place] # (Auto) 0.4 (0.1-0.6) 02/16/18 06:00 Eos # (Auto) 0.4 (0.0-0.7) 02/16/18 06:00 Baso # (Auto) 0.03 K/mm3 (0.0-2.0) 02/16/18 06:00 Differential Comment Cancelled 02/11/18 07:27 Retic Count 0.85 % (0.5-1.5) 02/15/18 08:20 PT 14.8 SECONDS (9.4-12.5) H 02/12/18 06:00 INR 1.28 02/12/18 06:00 pCO2 67 mm/Hg (35-45) H 02/15/18 07:00 pO2 87.0 mm/Hg (80-100) 02/15/18 07:00 HCO3 36.1 mmol/L (21-28) H 02/15/18 07:00 ABG pH 7.34 (7.35-7.45) L 02/15/18 07:00 ABG Total CO2 38.2 mmol.L (22-28) H 02/15/18 07:00 ABG O2 Saturation 97.3 % (95-98) 02/15/18 07:00 ABG O2 Content 12.6 ML/dl (15-23) L 02/15/18 07:00 ABG Base Excess 8.7 mmol/L (-2.0-3.0) H 02/15/18 07:00 ABG Hemoglobin 9.3 g/dL (11.7-17.4) L 02/15/18 07:00 ABG Carboxyhemoglobin 1.4 % (0.5-1.5) 02/15/18 07:00 POC ABG HHb (Measured) 2.6 % (0-5) 02/15/18 07:00 ABG Methemoglobin 0.8 % (0.0-3.0) 02/15/18 07:00 ABG O2 Capacity 12.9 mL/dl (16-24) L 02/15/18 07:00 Hgb O2 Saturation 95.2 % (95.0-98.0) 02/15/18 07:00 FiO2 50.0 % 02/15/18 07:00 Sodium 139 mmol/L (132-148) 02/19/18 06:30 Potassium 4.9 mmol/L (3.6-5.0) 02/19/18 06:30 Chloride 98 mmol/L (98-107) 02/19/18 06:30 Carbon Dioxide 38 mmol/L (21-33) H 02/19/18 06:30 Anion Gap 8 (10-20) L 02/19/18 06:30 BUN 68 mg/dL (7-21) H 02/19/18 06:30 Creatinine 2.3 mg/dl (0.7-1.2) H 02/19/18 06:30 Est GFR ( Amer) 26 02/19/18 06:30 Est GFR (Non-Af Amer) 02/19/18 06:30 POC Glucose (mg/dL) 237 mg/dL (65-110) H 02/19/18 10:51 Random Glucose 140 mg/dL (70-110) H 02/19/18 06:30 Hemoglobin A1c 7.4 % (4.2-6.5) H 02/13/18 05:48 Serum Osmolality 312 mosm/kg (272-300) H 02/11/18 07:36 Calcium 8.9 mg/dL (8.4-10.5) 02/19/18 06:30 Phosphorus 5.2 mg/dL (2.5-4.5) H 02/17/18 10:00 Magnesium 1.8 mg/dL (1.7-2.2) 02/17/18 10:00 Iron 26 ug/dL (45-180) L 02/13/18 09:00 TIBC 192 ug/dL (265-497) L 02/13/18 09:00 % Saturation 14 % (20-55) L 02/13/18 09:00 Ferritin 164.0 ng/mL 02/13/18 09:00 Total Bilirubin 0.2 mg/dL (0.2-1.3) 02/19/18 06:30 AST 31 U/L (14-36) 02/19/18 06:30 ALT 15 U/L (7-56) 02/19/18 06:30 Alkaline Phosphatase 101 U/L (38-126) 02/19/18 06:30 Troponin I 0.08 ng/mL 02/11/18 18:40 NT-Pro-B Natriuret Pep 6280 pg/mL (0-450) H 02/13/18 05:48 Total Protein 6.6 g/dL (5.8-8.3) 02/19/18 06:30 Albumin 3.1 g/dL (3.0-4.8) 02/19/18 06:30 Globulin 3.5 gm/dL 02/19/18 06:30 Albumin/Globulin Ratio 0.9 (1.1-1.8) L 02/19/18 06:30 Triglycerides 89 mg/dL (35-160) 02/13/18 05:48 Cholesterol 167 mg/dL (130-200) 02/13/18 05:48 LDL Cholesterol Direct 92 mg/dL (0-129) 02/13/18 05:48 HDL Cholesterol 36 mg/dL (29-60) 02/13/18 05:48 Lipase 37 U/L (23-300) 02/10/18 21:15 Carcinoembryonic Ag 5.4 ng/mL (0.0-3.0) H 02/15/18 08:20 Renin 0.43 ng/mL/h (0.25-5.82) 02/12/18 06:00 Aldosterone <1 ng/dL 02/12/18 06:00 Aldosterone/Renin Ratio See note Ratio (0.9-28.9) 02/12/18 06:00 Vitamin B12 > 1000 pg/mL (239-931) H 02/11/18 07:00 25-OH Vitamin D Total 30 ng/mL (30-100) 02/11/18 07:00 Procalcitonin 1.59 NG/ML (0.19-0.49) H 02/13/18 05:48 PTH Intact Whole Molec 82 pg/mL (14-64) H 02/11/18 11:00 Plasma Metanephrine <25 pg/mL (<=57) 02/12/18 06:00 Plasma Normetanephrine 292 pg/mL (<=148) H 02/12/18 06:00 Plas Total Metaneph 292 pg/mL (<=205) H 02/12/18 06:00 Urine Color Light yellow (YELLOW) 02/10/18 20:05 Urine Appearance Clear (CLEAR) 02/10/18 20:05 Urine pH 6.5 (4.7-8.0) 02/10/18 20:05 Ur Specific [place] 1.025 (1.005-1.035) 02/10/18 20:05 Urine Protein 100 mg/dL (<30 mg/dL) H 02/10/18 20:05 Urine Glucose (UA) Negative mg/dL (NEGATIVE) 02/10/18 20:05 Urine Ketones Negative mg/dL (NEGATIVE) 02/10/18 20:05 Urine Blood Negative (NEGATIVE) 02/10/18 20:05 Urine Nitrate Negative (NEGATIVE) 02/10/18 20:05 Urine Bilirubin Negative (NEGATIVE) 02/10/18 20:05 Urine Urobilinogen 0.2 E.U./dL (<1 E.U./dL) 02/10/18 20:05 Ur Leukocyte Esterase Small Martinez/uL (NEGATIVE) H 02/10/18 20:05 Urine RBC 2 - 5 /hpf (0-2) 02/10/18 20:05 Urine WBC 15 - 20 /hpf (0-6) 02/10/18 20:05 Ur Epithelial Cells 6 - 8 /hpf (0-5) 02/10/18 20:05 Urine Bacteria Many (NEG) 02/10/18 20:05 Urine Other Fiber 02/10/18 20:05 Urine Osmolality 333 mosm/kg (300-1000) 02/11/18 17:35 Ur Random Creatinine 39 mg/dL (20-320) 02/11/18 17:35 U Random Total Protein 3698 mg/g creat (21-161) H 02/11/18 17:35 Ur Random Sodium 102 meq/L 02/11/18 17:35 Ur Random Potassium 31.0 meq/L 02/11/18 17:35 Ur Random Uric Acid 12.2 mg/dL 02/11/18 17:35 Ur Random Urea Nitrogn 215 mg/dL 02/11/18 17:35 Urine Total Volume 67.0 mg/dL 02/11/18 17:35 Microalb/Creat Ratio 1700 (<30) H 02/11/18 17:35 Stool Occult Blood Positive (NEGATIVE) H 02/13/18 13:55 Blood Type O POSITIVE 02/13/18 19:56 Antibody Screen Negative 02/13/18 19:56 Crossmatch See Detail 02/13/18 19:56 BBK History Checked Patient has bt 02/13/18 19:56 - Hospital Course Hospital Course: 62 year old female with past medical history of hypertension, diabetes, CAD, COPD, DVT/PE on eliquis, CKD, colorectal cancer s/p resection and colostomy, obesity and chronic back pain who presented s/p fall and intractable back pain. Found to have acute on chronic respiratory failure secondary to right sided pneumonia and CHF. CT chest showed bilateral pneumonia but more extensive on right lung. Patient was admitted for treatment of pneumonia and respiratory failure and CHF. Patient received IV antibiotics for her pneumonia She was seen by diet tech and was started on bronchodilators and non invasive ventilation via BiPAP which improved her breathing pattern. Patient seen by cardiology who started her on aggressive antihypertensive medications as her uncontrolled HTN . Nephrology was onboard monitoring kidney function closely while on diuretics and metolazone. Plasma renin/aldosterone and metanephrin were ordered by tamale machine feeder Dr Ayala, results still pending to date and patient was told t follow up the results as outpatient. Patient was found to have anemia and FOBT positive, gastroenterology consulted and recommended EGD/ colonscopy as outpatient as there was no signs of acute GI bleeding. Patient was transfused one unit PRBCs and recieved IV iron for her anemia. CBC closely monitored and hemoglobin level got stabilized with blood transfusion and iron. Nephrology follow up was recommended as outpatient. Patient was on percocet for back pain which is likely due to inactivity and morbid obesity . Xray spines were negative for fractures. Unable to complete MRI secondary to weight and open MRI recommended outpatient. PT evaluated the patient and recommended NARA. Patient has a lot of comorbidities and was adviced to follow up with GI, nephrology, cardiology, pulmonology as outpatient. Patient was advised to have sleep study done and to get BiPAP to improve her sleep quality. Patient was constantly counseled to increase her activity level as tolerated and follow healthy diet and be compliant with her medication regimens. Patient was transferred to [facility], [place]. On discharge: -Please follow up with you PMD Dr Florian within one week of discharge -Please follow up with your diet tech Dr Ayala in 2 weeks -Please follow up with your checker dump grounds Dr Luna in 2 weeks -Please follow up with your Dispatcher Ship Pilot Dr Benitez in 2 weeks -Please follow up with your Print Graphic Designer Dr Archibald 2 weeks, need repeat BMP in 1- 2 weeks -Please follow up with Dr Ayala regarding pending lab [place] [facility] [place]Diet 2 gram sodium, low cholesterol diet -Acitivity as tolerated. -Please take your medication as prescribed -Please avoid smoking, drinking alcohol to reduce risk of hospital admission and risk of heart attack and stroke -please cut down fatty food -Please return to the emergency department if symptoms reoccur Discharge Exam - Head Exam Head Exam: NORMAL INSPECTION - Eye Exam Eye Exam: EOMI, Normal appearance, PERRL Pupil Exam: NORMAL ACCOMODATION, PERRL - ENT Exam ENT Exam: Mucous Membranes Moist, Normal Exam, Normal External Ear Exam - Neck Exam Neck exam: Full Rom, Normal Inspection - Respiratory Exam Respiratory Exam: Clear to PA & Lateral, NORMAL BREATHING PATTERN - Cardiovascular Exam Cardiovascular Exam: REGULAR RHYTHM, +S1, +S2 - GI/Abdominal Exam GI & Abdominal Exam: Hernia, Normal Bowel Sounds, Soft - Extremities Exam Extremities exam: normal capillary refill, pedal pulses present Additional comments: B/L 2+ lower limb edema - Neurological Exam Neurological exam: Alert, CN II-XII Intact, Oriented x3, Reflexes Normal - Psychiatric Exam Psychiatric exam: Normal Affect, Normal Mood - Skin Skin Exam: Dry, Intact, Normal Color, Warm Discharge Plan - Follow Up Plan Condition: FAIR Disposition: REHAB FACILITY/REHAB UNIT Instructions: Heart Failure, Adult (DC), Carbohydrate Counting Diet, Acute Pain , Adult, Pneumococcal Polysaccharide Vaccine (23-Valent), Heart Failure (DC) Additional Instructions: -Please follow up with you PMD Dr Florian within one week of discharge -Please follow up with your diet tech Dr Ayala in 2 weeks -Please follow up with your checker dump grounds Dr Luna in 2 weeks -Please follow up with your Dispatcher Ship Pilot Dr Benitez in 2 weeks -Please follow up with your Print Graphic Designer Dr Archibald 2 weeks, need repeat BMP in 1- 2 weeks -Please follow up with Dr Aayla regarding pending lab work [place] [facility] [place]Diet 2 gram sodium, low cholesterol diet -Acitivity as tolerated. -Please take your medication as prescribed -Please avoid smoking, drinking alcohol to reduce risk of hospital admission and risk of heart attack and stroke -please cut down fatty food -Please return to the emergency department if symptoms reoccur Referrals: Elroy Florian MD [Primary Care Provider] -
[2018-02-19 15:00] VITALS: BP 136/62; PULSE 71
--- NOTE | 2018-02-19 21:09 | PN ---
DATE: 02/19/2018 PULMONARY PROGRESS NOTE REFERRING PHYSICIAN: Dr. Andre. SUBJECTIVE: She is out of bed to chair. Night was unremarkable. Using supplemental oxygen. Uses BiPAP at nighttime. No nausea. No vomiting. No diarrhea. No leg swelling. OBJECTIVE: GENERAL: In no acute distress. VITAL SIGNS: Temperature is 98, heart rate 71, respiratory rate is 20, blood pressure 136/62, pulse ox 95% on nasal cannula. HEENT: Moist mucous membranes. Crowded airway. NECK: Short thick neck. LUNGS: Have a fair airflow with rhonchi. HEART: S1 and S2. ABDOMEN: Soft, nontender. No organomegaly. EXTREMITIES: Trace edema. NEUROLOGICAL: Awake and alert. Follows simple command. MEDICATIONS: Reviewed and noted no new changes in medication reported since yesterday. LABORATORY DATA: Shows hemoglobin 9, hematocrit 31.5, WBC 6, platelet is 354. Sodium 139, potassium 4.9, chloride 98, bicarbonate is 38, BUN 68, creatinine 2.3, glucose 140, calcium 8.9, AST 31, ALT is 15, alkaline phosphatase is 101. Albumin is 3.1. Microbiology: Blood culture and urine culture, there is no growth. IMPRESSION AND PLAN: Chronic obstructive lung disease, hypoventilation syndrome, multilobar pneumonia, status post respiratory failure, morbid obesity, coronary artery disease, cardiomyopathy, pulmonary embolism in the remote past, has history of deep vein thrombosis, renal insufficiency, colorectal cancer requiring resection and chemotherapy in the past, has a colostomy. The patient is being discharged to subacute facility. Spoke to social worker school. Advised the [facility] will [facility] and also will need as outpatient when discharged for home. Antibiotics as per Infectious Diseases, bronchodilator, fall precaution. We will follow up after discharged from the subacute. Thank you and we will follow with you. Pamela Ayala MD
--- NOTE | 2018-02-20 19:10 | PQF ---
PROVIDER RESPONSE TEXT: Please refer to progress notes. pneumonia REVIEWER QUERY TEXT: Rule Out Sepsis Clarification Rule out Sepsis is documented in the Medical Record. Please clarify whether: -- Patient has sepsis - Please document confirmed, suspected or probable causative organism - Please document confirmed, suspected or probable localized infection - Please clarify if sepsis is related to a device - Please clarify if sepsis was present on admission -- Sepsis was ruled out (include corresponding diagnosis for patient?s clinical picture and treatment ) -- Patient had sepsis which is resolved -- Other, please specify The patient's Clinical Indicators include: Please verify if SEPSIS is present on admission. Query created by: Ivette Alcantar on 02/20/2018 12:12 PM Electronically signed by: Susanna Andre MD 02/20/2018 7:07 PM
== END 2018-02-19 16:58 | DRG 193 ==
LOC: ED 18:31 → ERH 02-11 01:08 → 5RNO 02-11 03:34 → 2RNO 02-11 09:33 → 5RSO 02-18 12:03
PROVIDERS: ADMIT Internal Medicine; ATTEND Internal Medicine
PROC: 3E0F7GC Introduction of Other Therapeutic Substance into Respiratory Tract, Via Natural or Artificial Opening (ICD-10-PCS; 2018-02-11)
PROC: 5A09557 Assistance with Respiratory Ventilation, Greater than 96 Consecutive Hours, Continuous Positive Airway Pressure (ICD-10-PCS; principal; 2018-02-12)
PROC: 30233N1 Transfusion of Nonautologous Red Blood Cells into Peripheral Vein, Percutaneous Approach (ICD-10-PCS; 2018-02-13)
DX: J18.9 Pneumonia, unspecified organism (principal); J96.22 Acute and chronic respiratory failure with hypercapnia; N39.0 Urinary tract infection, site not specified; N17.9 Acute kidney failure, unspecified; J44.0 Chronic obstructive pulmonary disease with (acute) lower respiratory infection; I13.0 Hypertensive heart and chronic kidney disease with heart failure and stage 1 through stage 4 chronic kidney disease, or unspecified chronic kidney disease; I42.9 Cardiomyopathy, unspecified; E87.4 Mixed disorder of acid-base balance; I50.30 Unspecified diastolic (congestive) heart failure; Z68.43 Body mass index [BMI] 50.0-59.9, adult; G89.29 Other chronic pain; M54.40 Lumbago with sciatica, unspecified side; E66.01 Morbid (severe) obesity due to excess calories; Z79.82 Long term (current) use of aspirin; K43.9 Ventral hernia without obstruction or gangrene; G47.33 Obstructive sleep apnea (adult) (pediatric); N18.3 Chronic kidney disease, stage 3 (moderate); I25.10 Atherosclerotic heart disease of native coronary artery without angina pectoris; I27.20 Pulmonary hypertension, unspecified; E11.22 Type 2 diabetes mellitus with diabetic chronic kidney disease; D50.0 Iron deficiency anemia secondary to blood loss (chronic); E55.9 Vitamin D deficiency, unspecified; G25.0 Essential tremor; D63.1 Anemia in chronic kidney disease; E78.00 Pure hypercholesterolemia, unspecified; E78.5 Hyperlipidemia, unspecified; R19.5 Other fecal abnormalities; D35.02 Benign neoplasm of left adrenal gland; Z93.3 Colostomy status; Z99.81 Dependence on supplemental oxygen; Z91.19 Patient's noncompliance with other medical treatment and regimen; Z95.5 Presence of coronary angioplasty implant and graft; Z86.711 Personal history of pulmonary embolism; Z85.048 Personal history of other malignant neoplasm of rectum, rectosigmoid junction, and anus; Z86.718 Personal history of other venous thrombosis and embolism; Z92.21 Personal history of antineoplastic chemotherapy; Z92.3 Personal history of irradiation; Z79.01 Long term (current) use of anticoagulants; Z91.81 History of falling

== ENCOUNTER 2018-03-16 10:09 | Inpatient (IN) | payer MEDICARE, OTHER ==
--- NOTE | 2018-03-16 10:28 | ED PDOC ---
Arrival/HPI - General Time Seen by Provider: 03/16/18 10:18 Historian: Patient - History of Present Illness Narrative History of Present Illness (Text): 03/16/18 10:24 62 year old female, pmh including htn/hld/CHF/PE on eliquis/DM2/CAD with stent placed in 2013/Obstructive sleep apnea/anemia, nkda, post menopausal, BMI 56, biba with the son at the bedside complaining of worsening fatigue/lethargic/coughing/chills and shortness of breath with activity for the past 2 weeks. Pt. was recently admitted for the anemia and CHF, hospitalized and discharged home. However the patient been having worsening of the fatigue and tired, associated with shortness of breath, on eliquis for the PE, no night sweat, no rash, no recent traveling outside of the [facility], no chest pain or palpitation, no abdominal or pelvic pain but admits feeling chills. Pt. has no f all or trauma. Past Medical History - Provider Review Nursing Documentation Reviewed: Yes - Infectious Disease Hx of Infectious Diseases: None - Tetanus Immunization Tetanus Immunization: Unknown - Cardiac Hx Hypertension: Yes - Pulmonary Hx Respiratory Disorders: Yes Hx Bronchitis: Yes - Neurological Hx Neurological Disorder: Yes Hx Dizziness: Yes - HEENT Hx Macular Degeneration: No - Renal Hx Renal Failure: Yes - Endocrine/Metabolic Hx Diabetes Mellitus Type 2: Yes - Hematological/Oncological Hx Blood Disorders: No - Integumentary Hx Dermatological Disorder: No - Musculoskeletal/Rheumatological Hx Falls: No - Gastrointestinal Hx Gastrointestinal Disorders: Yes (RECTAL CA WITH COLOSTOMY,GI BLEED) - Genitourinary/Gynecological Hx Genitourinary Disorders: Yes (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,UTI) - Psychiatric Hx Psychophysiologic Disorder: Yes Hx Anxiety: Yes Hx Substance Use: No - Surgical History Hx Appendectomy: Yes Hx Coronary Stent: Yes Other/Comment: colostomy - Anesthesia Hx Anesthesia: Yes Hx Anesthesia Reactions: No Hx Malignant Hyperthermia: No - Suicidal Assessment Feels Threatened In Home Enviroment: No Family/Social History - Physician Review Nursing Documentation Reviewed: Yes Family/Social History: Unknown Family HX Smoking Status: Never Smoked Hx Alcohol Use: No Hx Substance Use: No Hx Substance Use Treatment: No Allergies/Home Meds Allergies/Adverse Reactions: Allergies No Known Allergies Allergy (Verified 03/16/18 16:57) Home Medications: Home Meds Medication Instructions Recorded Confirmed Apixaban [Eliquis] 1 tab PO DAILY 02/10/18 02/10/18 Aspirin [Adult Low Dose Aspirin EC] 1 tab PO DAILY 02/10/18 02/10/18 Furosemide [Lasix] 1 tab PO HS 02/10/18 02/10/18 Hydralazine HCl 25 mg PO TID 02/10/18 02/10/18 Isosorbide Mononitrate [Imdur] 1 tab PO DAILY 02/10/18 02/10/18 Metoprolol Succinate [Kapspargo 1 tab PO DAILY 02/10/18 02/10/18 Sprinkle] Oxybutynin Chloride [Oxybutynin 1 tab PO DAILY 02/10/18 02/10/18 Chloride ER] Pantoprazole [Protonix EC Tab] 1 tab PO DAILY 02/10/18 02/10/18 Pregabalin [Lyrica] 1 tab PO DAILY 02/10/18 02/10/18 Primidone [Mysoline] 1 tab PO DAILY 02/10/18 02/10/18 Simvastatin [Zocor] 1 tab PO HS 02/10/18 02/10/18 amLODIPine [Norvasc] 1 tab PO DAILY 02/10/18 02/10/18 metOLazone [Zaroxolyn] 1 tab PO DAILY 02/10/18 02/10/18 Review of Systems - Review of Systems Constitutional: Fatigue, Other (chills). absent: Fevers Eyes: absent: Vision Changes ENT: absent: Hearing Changes Respiratory: SOB, Cough, Sputum. absent: Wheezing Cardiovascular: absent: Chest Pain Gastrointestinal: absent: Abdominal Pain, Diarrhea, Nausea, Vomiting Skin: absent: Rash, Pruritis Neurological: absent: Headache, Dizziness Psychiatric: absent: Anxiety, Depression, Suicidal Ideation Physical Exam Vital Signs Reviewed: Yes Temperature: Afebrile Blood Pressure: Hypertensive Pulse: Regular Respiratory Rate: Normal Appearance: Positive for: Ill-Appearing Pain Distress: None Mental Status: Positive for: Alert and Oriented X 3 - Systems Exam Head: Present: Atraumatic, Normocephalic Pupils: Present: PERRL Extroacular Muscles: Present: EOMI Conjunctiva: Present: Normal Mouth: Present: Moist Mucous Membranes Neck: Present: Normal Range of Motion Respiratory/Chest: Present: Clear to Auscultation, Good Air Exchange, Rales (rt. sided lung), Rhonchi (rt. sided lung). No: Respiratory Distress, Accessory Muscle Use, Wheezes, Decreased Breath Sounds, Retracting, Tachypneic, Tender to Palpation Cardiovascular: Present: Regular Rate and Rhythm, Normal S1, S2. No: Murmurs Abdomen: No: Tenderness, Distention, Peritoneal Signs, Rebound, Guarding Back: Present: Normal Inspection Upper Extremity: Present: Normal Inspection. No: Cyanosis, Edema Lower Extremity: Present: Normal Inspection. No: Edema Neurological: Present: GCS=15, CN II-XII Intact, Speech Normal, Motor Func Grossly Intact, Memory Normal Skin: Present: Warm, Dry, Normal Color. No: Rashes Psychiatric: Present: Alert, Oriented x 3, Normal Insight, Normal Concentration Medical Decision Making ED Course and Treatment: 03/16/18 10:39 -labs/trop/bnp/ua/rapid flu -ekg -cxr -oxygen 2L -Observe and reassess 03/16/18 12:37 -EKG: NSR @ 85 BPM, no ST elevation or depression, no T wave inversion -Chest X-Ray Emergency room wet read: rt. infiltrate noted -Labs show hgb 14.1 from 6.0 (blood cultures/IV antibiotics ordered), Hgb 9.7 from 9.0 (chronic anemia), Bun 68 from 68 and creatine 2.5 from 2.3 (mildly worsened) -Rapid flu is negative -Lactic acid within normal limit -MG within normal limit -Trop is negative -BNP is 3400 from 6280 -UA show + trace leuko -Pt. has been hospitalized in the past 90 days, will admit for the IV vanco/c ipro/zosyn -All labs and radiology results discussed with the patient and the son, agreed on the plan of the care -Paging hospitalist for admission. 03/16/18 12:52 -I discussed the case with the hospitalist DR. Andre (Dr. Florian is on the blue list), discussed about the labs/radiology result and agreed to admit to his service with follow up care. - Lab Interpretations I have reviewed the lab results: Yes - RAD Interpretation Radiology Orders: Date of service: 03/16/2018 HISTORY: h/o pneumonia COMPARISON: 02/17/2018 FINDINGS: LUNGS: Persistent right lung pulmonary infiltrate. No definite left-sided pulmonary infiltrate appreciated. PLEURA: No significant pleural effusion identified, no pneumothorax apparent. CARDIOVASCULAR: Mild cardiomegaly. Right central venous infusion port. OSSEOUS STRUCTURES: No significant abnormalities. VISUALIZED UPPER ABDOMEN: Normal. OTHER FINDINGS: None. IMPRESSION: Diffuse right-sided pulmonary infiltrate. Grossly unchanged from prior. Set Up Mechanic Stamping Machines: Radiologist - EKG Interpretation EKG Interpretation (Text): 03/16/18 11:59 -EKG: NSR @ 85 BPM, no ST elevation or depression, no T wave inversion Interpreted by ED Physician: Yes Type: 12 lead EKG - PA / MAINTENANCE ASSOCIATE / Resident Statement MD/DO has reviewed & agrees with the documentation as recorded. Disposition/Present on Arrival - Present on Arrival Any Indicators Present on Arrival: No History of DVT/PE: Yes History of Uncontrolled Diabetes: No Urinary Catheter: No History of Decub. Ulcer: No History Surgical Site Infection Followin, 5 - Disposition Have Diagnosis and Disposition been Completed?: Yes Diagnosis: Leukocytosis, Pneumonia, Renal failure (ARF), acute on chronic Disposition: HOSPITALIZED Disposition Time: 12:38 Patient Plan: Admission, Observation Patient Problems: Current Active Problems Problem Status Onset Leukocytosis Acute Pneumonia Acute Renal failure (ARF), acute on chronic Acute Condition: STABLE
[2018-03-16 11:23] LABS: BASO # 0.08 K/mm3 (0.0-2.0); BASO % 0.6 % (0.0-3.0); EOS # 0.4 (0.0-0.7); EOS % 2.7 % (1.5-5.0); GRAN # 11.54 (1.4-6.5); GRAN % 81.8 % (50.0-68.0); HEMOGLOBIN 9.7 g/dL (12.0-16.0); LYMPH # 1.7 (1.2-3.4); LYMPH % 12.3 % (22.0-35.0); MEAN CELL VOLUME 84.1 fl (80.0-105.0); MEAN CORPUSCULAR HEMOGLOBIN 25.7 pg (25.0-35.0); MEAN CORPUSCULAR HGB CONC 30.6 g/dl (31.0-37.0); MEAN PLATELET VOLUME 11.1 fl (7.0-11.0); MONO # 0.4 (0.1-0.6); MONO % 2.6 % (1.0-6.0); RBC 3.77 10^6/uL (3.5-6.1); RED CELL DISTRIBUTION WIDTH 17.3 % (11.5-14.5); WHITE BLOOD COUNT 14.1 10^3/ul (4.5-11.0)
[2018-03-16 11:38] LABS: VENOUS BLOOD GAS BASE EXCESS 4.4 mmol/L (0.0-2.0); VENOUS BLOOD GAS PO2 192 mm/Hg (30-55); VENOUS BLOOD PH 7.31 (7.32-7.43)
[2018-03-16 11:48] LABS: INR 1.07; PARTIAL THROMBOPLASTIN TIME 30.7 Seconds (25.1-36.5); PROTHROMBIN TIME 12.3 SECONDS (9.4-12.5)
[2018-03-16 11:51] LABS: ALB/GLOB RATIO 0.9 (1.1-1.8); ALBUMIN 3.5 g/dL (3.0-4.8); ALT/SGPT 12 U/L (7-56); AST/SGOT 25 U/L (14-36); BLOOD UREA NITROGEN 68 mg/dL (7-21); CALCIUM 9.1 mg/dL (8.4-10.5); GFR NON-AFRICAN AMERICAN 19; URINE BILIRUBIN NEGATIVE (NEGATIVE); URINE BLOOD NEGATIVE (NEGATIVE); URINE GLUCOSE (UA) NEGATIVE (NEGATIVE); URINE LEUKOCYTE ESTERASE SMALL Leu/uL (NEGATIVE); URINE PROTEIN >=300 mg/dL (<30 mg/dL); URINE UROBILINOGEN 0.2 E.U./dL (<1 E.U./dL)
[2018-03-16 11:54] LABS: URINE APPEARANCE SL CLOUDY (CLEAR); URINE COLOR YELLOW (YELLOW)
[2018-03-16 12:01] LABS: B-TYPE NATRIURETIC PEPTIDE 3400 pg/mL (0-450); TROPONIN I < 0.01 ng/mL
[2018-03-16 12:07] LABS: URINE RBC 0 - 2 /hpf (0-2)
[2018-03-16] MEDS ORDERED: Piperacillin/Tazobact 3.375 gm 100 ML IVPB STA (12:30)
[2018-03-16] MEDS ORDERED: Vancomycin 1gm in NS 250ml 1 GM/250 ML BAG IVPB STA (12:30)
[2018-03-16] MEDS ORDERED: Ciprofloxacin 400mg/200ml D5W 400 MG/200 ML BAG IVPB STA (12:30)
[2018-03-16] MEDS ORDERED: Sodium Chloride 0.9% 1,000 ML IV STA (15:29)
[2018-03-16] MEDS ORDERED: Piperacillin/Tazobact 2.25gm 2.25 GM/100 ML BAG IVPB STA (15:32)
--- NOTE | 2018-03-16 15:35 | CP.PCM.HP ---
History of Present Illness - History of Present Illness History of Present Illness: Adonis De Paz PGY1 - Internal Medicine Resp Ther - Hospital Progress Note CC: Lethargy, SOB, MOSELEY x2 weeks 62F w/ a significant PMH most notable for DVT/PE on Eliquis, COPD on 3L NC at home, CKD, presented to [facility] on [place] / CC of Lethargy, SOB, MOSELEY x2 weeks. Of note, patient reports her symptoms are similar to when she was previously admitted for Acute on Chronic Resp failure 2/2 PNA + CHF. She was discharged from rehab facility 2 weeks ago. As per son chief complaints have been worsening over the past 2 weeks; Morning prior to presentation son reported mother had a fall while ambulating with walker from bed to bathroom. No trauma reported, no LOC reported; no seizure like activity reported. Patient reports fall was due more to weakness and uncoordination. Son reports that patient was much more lethargic and confused after fall this AM. On ROS patient reports chills, dizziness, and dysuria. Denies: CP, SOB at rest, Abd pain, n/v, Increase/ decrease ostomy output, blood in ostomy, change in appetite. Remainder of 12 system ROS is otherwise negative PMD: Dr. Florian PMHx: renal failure, chronic renal insufficiency, anemia, colorectal ca s/p resection, colostomy x 2, morbid obesity, obstructive sleep apnea, COPD on 3L NC at home, chronic back pain, djd, sciatica, DM2, HTN, hypercholesterolemia, CAD with baremetal stent placed in 2013, pulmonary embolus and DVT PSHx: colectomy with colostomy, appendectomy, h/o Meds: Duonebs Q6 PRN Brovana 15mcg Q12 Budesonide 0.5mg Q12 Norvasc 10 daily Imdur 60 daily Clonidine 0.1 po TID Hydralazine 25 TID Metolazone 2.5 QD Furosemide 40 HS Metoprolol 100 QD Eliquis 2.5 Daily Levemir 20 Q12 ISS Low ACHS Primidone 50 QD Zocor 40 QD Allx: NKDA Social Hx: Denies smoking or drinking. Present on Admission - Present on Admission Any Indicators Present on Admission: Yes History of DVT/PE: Yes Review of Systems - Review of Systems All systems: reviewed and no additional remarkable complaints except Review of Systems: As per HPI Past Patient History - Infectious Disease Hx of Infectious Diseases: None - Tetanus Immunizations Tetanus Immunization: Unknown - Past Social History Smoking Status: Never Smoked - CARDIAC Hx Hypertension: Yes - PULMONARY Hx Respiratory Disorders: Yes Hx Bronchitis: Yes - NEUROLOGICAL Hx Neurological Disorder: Yes Hx Dizziness: Yes - HEENT Hx Macular Degeneration: No - RENAL Hx Renal Failure: Yes - ENDOCRINE/METABOLIC Hx Diabetes Mellitus Type 2: Yes - HEMATOLOGICAL/ONCOLOGICAL Hx Blood Disorders: No - INTEGUMENTARY Hx Dermatological Problems: No - MUSCULOSKELETAL/RHEUMATOLOGICAL Hx Falls: No - GASTROINTESTINAL Hx Gastrointestinal Disorders: Yes (RECTAL CA WITH COLOSTOMY,GI BLEED) - GENITOURINARY/GYNECOLOGICAL Hx Genitourinary Disorders: Yes (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,UTI) - PSYCHIATRIC Hx Psychophysiologic Disorder: Yes Hx Anxiety: Yes Hx Substance Use: No - SURGICAL HISTORY Hx Appendectomy: Yes Hx Coronary Stent: Yes Other/Comment: colostomy - ANESTHESIA Hx Anesthesia: Yes Hx Anesthesia Reactions: No Hx Malignant Hyperthermia: No Meds Allergies/Adverse Reactions: Allergies Allergy/AdvReac Type Severity Reaction Status Date / Time No Known Allergies Allergy Verified 03/16/18 16:57 Physical Exam - Constitutional Appears: Confused Additional comments: Somnolent - Head Exam Head Exam: ATRAUMATIC, NORMOCEPHALIC - Eye Exam Eye Exam: EOMI, PERRL. absent: Scleral icterus - ENT Exam ENT Exam: Mucous Membranes Dry - Respiratory Exam Respiratory Exam: Wheezes (Minimal), NORMAL BREATHING PATTERN. absent: Rales, Rhonchi, Respiratory Distress - Cardiovascular Exam Cardiovascular Exam: RRR, +S1, +S2. absent: Systolic Murmur - GI/Abdominal Exam GI & Abdominal Exam: Normal Bowel Sounds, Soft. absent: Tenderness Additional comments: Colostomy present; draining appropriately - Extremities Exam Additional comments: 4+ Pitting edema BL lower extremities Extremities warm; Pulses difficult to palpate - Neurological Exam Neurological exam: Alert, CN II-XII Intact, Oriented x3 Additional comments: LUE and LLE strength relatively weaker than than RUE/ RLE ; UE display 5/5 gross strength bilaterally Patient shows no tremors Unable to hold out L arm - Psychiatric Exam Psychiatric exam: Anxious - Skin Skin Exam: Dry, Intact, Warm Results - Vital Signs Recent Vital Signs: Last Vital Signs Temp 98.5 F 03/16/18 15:20 Pulse 78 03/16/18 15:20 Resp 19 03/16/18 15:20 BP 123/71 03/16/18 15:20 Pulse Ox 96 03/16/18 15:20 - Labs Result Diagrams: 03/16/18 11:10 03/16/18 10:20 Labs: Laboratory Results - last 24 hr 03/16/18 03/16/18 03/16/18 10:20 10:20 10:20 WBC RBC Hgb Hct MCV MCH MCHC RDW Plt Count MPV Gran % Lymph % (Auto) [place] % (Auto) Eos % (Auto) Baso % (Auto) Gran # Lymph # (Auto) [place] # (Auto) Eos # (Auto) Baso # (Auto) PT 12.3 INR 1.07 APTT 30.7 pO2 VBG pH VBG pCO2 VBG HCO3 VBG Total CO2 VBG O2 Sat (Calc) VBG Base Excess VBG Potassium Glucose Lactate FiO2 Sodium 136 Potassium 4.2 Chloride 96 L Carbon Dioxide 32 Anion Gap 12 BUN 68 H Creatinine 2.5 H Est GFR ( Amer) 24 Est GFR (Non-Af Amer) 19 POC Glucose (mg/dL) Random Glucose 182 H Calcium 9.1 Magnesium 1.9 Total Bilirubin 0.1 L AST 25 ALT 12 Alkaline Phosphatase 113 Lactate Dehydrogenase 617 Total Creatine Kinase 39 Troponin I < 0.01 D NT-Pro-B Natriuret Pep 3400 H Total Protein 7.4 Albumin 3.5 Globulin 3.9 Albumin/Globulin Ratio 0.9 L Venous Blood Potassium Urine Color Urine Appearance Urine pH Ur Specific [place] Urine Protein Urine Glucose (UA) Urine Ketones Urine Blood Urine Nitrate Urine Bilirubin Urine Urobilinogen Ur Leukocyte Esterase Urine RBC Urine WBC Ur Epithelial Cells Influenza Typ A,B (EIA) Blood Type O POSITIVE Antibody Screen Negative BBK History Checked Patient has bt 03/16/18 03/16/18 03/16/18 10:20 10:20 10:22 WBC RBC Hgb Hct MCV MCH MCHC RDW Plt Count MPV Gran % Lymph % (Auto) [place] % (Auto) Eos % (Auto) Baso % (Auto) Gran # Lymph # (Auto) [place] # (Auto) Eos # (Auto) Baso # (Auto) PT INR APTT pO2 VBG pH VBG pCO2 VBG HCO3 VBG Total CO2 VBG O2 Sat (Calc) VBG Base Excess VBG Potassium Glucose Lactate FiO2 Sodium Potassium Chloride Carbon Dioxide Anion Gap BUN Creatinine Est GFR ( Amer) Est GFR (Non-Af Amer) POC Glucose (mg/dL) 247 H Random Glucose Calcium Magnesium Total Bilirubin AST ALT Alkaline Phosphatase Lactate Dehydrogenase Total Creatine Kinase Troponin I NT-Pro-B Natriuret Pep Total Protein Albumin Globulin Albumin/Globulin Ratio Venous Blood Potassium Urine Color Yellow Urine Appearance Sl cloudy Urine pH 6.0 Ur Specific [place] 1.025 Urine Protein >=300 H Urine Glucose (UA) Negative Urine Ketones Negative Urine Blood Negative Urine Nitrate Negative Urine Bilirubin Negative Urine Urobilinogen 0.2 Ur Leukocyte Esterase Small H Urine RBC 0 - 2 Urine WBC 1 - 3 Ur Epithelial Cells 1 - 3 Influenza Typ A,B (EIA) Negative for flu a/b Blood Type Antibody Screen BBK History Checked 03/16/18 03/16/18 11:10 11:20 WBC 14.1 H D RBC 3.77 Hgb 9.7 L Hct 31.7 L MCV 84.1 MCH 25.7 MCHC 30.6 L RDW 17.3 H Plt Count 233 MPV 11.1 H Gran % 81.8 H Lymph % (Auto) 12.3 L [place] % (Auto) 2.6 Eos % (Auto) 2.7 Baso % (Auto) 0.6 Gran # 11.54 H Lymph # (Auto) 1.7 [place] # (Auto) 0.4 Eos # (Auto) 0.4 Baso # (Auto) 0.08 PT INR APTT pO2 192 H VBG pH 7.31 L VBG pCO2 65.0 H VBG HCO3 32.7 H VBG Total CO2 34.7 H VBG O2 Sat (Calc) 98.7 H VBG Base Excess 4.4 H VBG Potassium 4.1 Glucose 175 H Lactate 0.8 FiO2 21.0 Sodium 134.0 Potassium Chloride 101.0 Carbon Dioxide Anion Gap BUN Creatinine Est GFR ( Amer) Est GFR (Non-Af Amer) POC Glucose (mg/dL) Random Glucose Calcium Magnesium Total Bilirubin AST ALT Alkaline Phosphatase Lactate Dehydrogenase Total Creatine Kinase Troponin I NT-Pro-B Natriuret Pep Total Protein Albumin Globulin Albumin/Globulin Ratio Venous Blood Potassium 4.1 Urine Color Urine Appearance Urine pH Ur Specific [place] Urine Protein Urine Glucose (UA) Urine Ketones Urine Blood Urine Nitrate Urine Bilirubin Urine Urobilinogen Ur Leukocyte Esterase Urine RBC Urine WBC Ur Epithelial Cells Influenza Typ A,B (EIA) Blood Type Antibody Screen BBK History Checked Assessment & Plan - Assessment and Plan (Free Text) Assessment: Assessment: 62F w/ significant comorbid conditions previously admitted to [facility] for acute on chronic respiratory failure 2/2 PNA + CHF presented to [facility] on 03/16 w/ CC of MOSELEY, Lethargy, and fatigue x2 weeks. Patient was subsequently admitted for treatment of Hypercapnic respiratory Acidosis 2/2 HCAP vs decompensated COPD. Problem List: HCAP Previously admitted to inpatient as well as rehab within last three months; previous RLL infiltrate CXR - Diffuse R sided pulm infiltrate; unchanged from prior Afebrile; Leukocytosis Lactate wnl Will give 1L bolus; Start Vanco renal dosing Start Zosyn renal dosing Rodriguez-culture pending Procal pending Hypercapnic Respiratory Acidosis ABG -7.30/64/106/31.5 Bipap at night Hx COPD Duonebs Q6 PRN Brovana 15mcg Q12 Budesonide 0.5mg Q12 HTN Norvasc 10 daily Imdur 60 daily Clonidine 0.1 po TID Hx CHF Echo 08/2017 - EF 53% w/ Grade II diastolic dysfunction Pro BNP 3400 Holding Hydralazine 25 TID Holding Metolazone 2.5 QD Holding Metoprolol 100 QD Low salt diet SHELBI on CKD - Baseline Cr 1.8 BUN/Cr 68/2.5 1L bolus as above Hold diuretics Avoid nephrotoxic agents Hx DVT/PE Eliquis 2.5 Daily Hx DM w/ Neuropathy Levemir 20 Q12 ISS Low ACHS Lyrica 200 QD UTI Symptomatic; Leuk Esterase + Start Cipro renal dosing UCx pending Hx tremors Primidone 50 QD Hx HLD Zocor 40 QD Dispo: Continued inpatient management of Hypercapnic Respiratory Failure and other comorbidities DIET: Heart healthy diet low carb ; 2gm Na GI: Protonix 40 IVp DVT: Eliquis as above + SCD Code: FULL CODE Patient seen, examined, and discussed w/ attending physician Dr. Alice De Paz DO PGY1 - Internal Medicine Resp Ther - Pager [phone] - Date & Time Date: 03/16/18 Time: 20:51
--- NOTE | 2018-03-16 16:18 | RAD ---
Date of service: 03/16/2018 HISTORY: h/o pneumonia COMPARISON: 02/17/2018 FINDINGS: LUNGS: Persistent right lung pulmonary infiltrate. No definite left-sided pulmonary infiltrate appreciated. PLEURA: No significant pleural effusion identified, no pneumothorax apparent. CARDIOVASCULAR: Mild cardiomegaly. Right central venous infusion port. OSSEOUS STRUCTURES: No significant abnormalities. VISUALIZED UPPER ABDOMEN: Normal. OTHER FINDINGS: None. IMPRESSION: Diffuse right-sided pulmonary infiltrate. Grossly unchanged from prior.
[2018-03-16 17:23] LABS: ARTERIAL BLOOD GAS HCO3 31.5 mmol/L (21-28); ARTERIAL BLOOD GAS HEMOGLOBIN 9.2 g/dL (11.7-17.4); ARTERIAL BLOOD GAS O2 CAPACITY 12.8 mL/dl (16-24); ARTERIAL BLOOD GAS O2 CONTENT 12.7 ML/dl (15-23); ARTERIAL BLOOD GAS O2 SAT 98.9 % (95-98); ARTERIAL BLOOD GAS PCO2 64 mm/Hg (35-45); ARTERIAL BLOOD GAS TCO2 33.5 mmol.L (22-28)
[2018-03-16] MEDS: Insulin Reg-LOW-Coverage SC SCH (17:46)
[2018-03-16] MEDS: Insulin Detemir 100 units/ml Vial (Levemir) SC SCH (17:46)
[2018-03-16 19:46] VITALS: BMI 56.5
[2018-03-16] MEDS ORDERED: Influenza Vaccine 60 mcg/0.5 mL SYR (4YR UP) IM ONE (19:46)
[2018-03-16] MEDS ORDERED: Pneumococcal 23-Valent Vaccine IM ONE (19:46)
[2018-03-16] MEDS: Arformoterol 15 mcg/2 ml Inh Sol IH SCH (19:50)
[2018-03-16] MEDS: Budesonide 0.5 mg/2 ml Inhal Susp UD IH SCH (19:50)
[2018-03-16] MEDS ORDERED: Arformoterol 15 mcg/2 ml Inh Sol IH SCH (20:00)
[2018-03-16] MEDS ORDERED: Vancomycin 500mg in NS 500 MG/100 ML BAG IVPB SCH (22:00)
--- NOTE | 2018-03-16 22:25 | CARD ---
APPROVED REPORT Date of service: 03/16/2018 EKG Measurement Heart [id number] [id number] <Conclusion> Normal sinus rhythm Normal ECG
[2018-03-17] MEDS: Insulin Reg-LOW-Coverage SC SCH ×4 (02:57→22:55)
[2018-03-17] MEDS: Insulin Detemir 100 units/ml Vial (Levemir) SC SCH ×2 (05:25→21:10)
[2018-03-17] MEDS: Piperacillin/Tazobact 2.25gm 2.25 GM/100 ML BAG IVPB SCH ×3 (05:26→18:13)
[2018-03-17 05:41] LABS: ARTERIAL BLOOD GAS HCO3 31.5 mmol/L (21-28); ARTERIAL BLOOD GAS HEMOGLOBIN 9.1 g/dL (11.7-17.4); ARTERIAL BLOOD GAS O2 CAPACITY 12.7 mL/dl (16-24); ARTERIAL BLOOD GAS O2 CONTENT 12.4 ML/dl (15-23); ARTERIAL BLOOD GAS O2 SAT 97.7 % (95-98); ARTERIAL BLOOD GAS PCO2 67 mm/Hg (35-45); ARTERIAL BLOOD GAS PH 7.28 (7.35-7.45); ARTERIAL BLOOD GAS TCO2 33.6 mmol.L (22-28)
--- NOTE | 2018-03-17 07:43 | CP.PCM.PN ---
Subjective - Date & Time of Evaluation Date of Evaluation: 03/17/18 Time of Evaluation: 07:42 - Subjective Subjective: Adonis De Paz DO PGY1 - Internal Medicine [employer]nequin [employer] Artist - Hospital Progress Note Patient seen and examined at bedside this morning Patient tolerated bipap well overnight day time settings adjusted based on AM ABG values Appears to be much more clinically stable at this time. Still complains of generalized weakness, increased tremor in L arm; Does report improved breathing. Asking for Pain medication for neck; started on tylenol. Objective - Vital Signs/Intake and Output Vital Signs (last 24 hours): Temp Pulse Resp BP Pulse Ox 98.3 F 68 19 124/57 L 94 L 03/16/18 21:24 03/17/18 06:22 03/16/18 21:24 03/17/18 06:22 03/16/18 21:24 - Medications Medications: Current Medications Acetaminophen (Tylenol 325mg Tab) 650 mg PO Q6H PRN PRN Reason: Pain, Mild (1-3) Albuterol/Ipratropium (Duoneb 3 Mg/0.5 Mg (3 Ml) Ud) 3 ml IH [id number] PRN PRN Reason: Wheezing Amlodipine Besylate (Norvasc) 10 mg PO DAILY JR Apixaban (Eliquis) 2.5 mg PO BID JR; Protocol Last Admin: 03/16/18 17:22 Dose: 2.5 mg Arformoterol Tartrate (Brovana) 15 mcg IH [id number] JR Last Admin: 03/16/18 19:50 Dose: 15 mcg Aspirin (Ecotrin) 81 mg PO DAILY [facility] Budesonide (Pulmicort Respules) 0.5 mg IH [id number] JR Last Admin: 03/16/18 19:50 Dose: 0.5 mg Ciprofloxacin (Cipro) 250 mg PO DAILY JR; Protocol Stop: 03/17/18 15:40 Clonidine HCl (Catapres) 0.1 mg PO TID JR Last Admin: 03/16/18 17:52 Dose: 0.1 mg Vancomycin HCl (Vancomycin 500mg In Ns) 500 mg in 100 mls @ 200 mls/hr IVPB Q12 JR; Protocol Piperacillin Sod/Tazobactam Sod (Zosyn 2.25 Gm In 0.9% 100 Ml) 2.25 gm in 100 mls @ 100 mls/hr IVPB Q6 JR; Protocol Last Admin: 03/17/18 05:26 Dose: 100 mls/hr Insulin Detemir (Levemir) 20 unit SC Q12H [facility] Last Admin: 03/17/18 05:25 Dose: Not Given Insulin Human Regular (Humulin R Low) 0 units SC ACHS [facility]; Protocol Last Admin: 03/17/18 02:57 Dose: Not Given Isosorbide Mononitrate (Imdur) 60 mg PO DAILY [facility] Metoprolol Succinate (Toprol Xl) 100 mg PO BRK [facility] Oxybutynin Chloride (Ditropan Tab) 10 mg PO DAILY [facility] Pregabalin (Lyrica) 50 mg PO Q12 [facility] Primidone (Mysoline) 50 mg PO DAILY [facility] Vitamin B Complex/Vit C/Folic Acid (Nephro-[place]) 1 tab PO 0800 [facility] - Labs Labs: 03/16/18 11:10 03/16/18 10:20 PT 12.3 SECONDS (9.4-12.5) 03/16/18 10:20 INR 1.07 03/16/18 10:20 APTT 30.7 Seconds (25.1-36.5) 03/16/18 10:20 Physical Exam - Constitutional Appears: More active than day prior; however moderately somnolent - Head Exam Head Exam: ATRAUMATIC, NORMOCEPHALIC - Eye Exam Eye Exam: EOMI, PERRL. absent: Scleral icterus - ENT Exam ENT Exam: Mucous Membranes Dry - Respiratory Exam Respiratory Exam: On bipap, tolerating well, does not look to be doing increased work w/ breathing - Cardiovascular Exam Cardiovascular Exam: RRR, +S1, +S2. absent: Systolic Murmur - GI/Abdominal Exam GI & Abdominal Exam: Normal Bowel Sounds, Soft. absent: Tenderness Additional comments: Colostomy present; draining appropriately - Extremities Exam Additional comments: 4+ Pitting edema BL lower extremities Extremities warm; Pulses difficult to palpate - Neurological Exam Neurological exam: Alert, CN II-XII Intact, Oriented x3 Additional comments: LUE and LLE strength relatively weaker than than RUE/ RLE ; UE display 5/5 gross strength bilaterally Patient shows no tremors Unable to hold out L arm - Psychiatric Exam Psychiatric exam: Less Anxious than day prior - Skin Skin Exam: Dry, Intact, Warm Assessment and Plan - Assessment and Plan (Free Text) Assessment: Assessment: 62F w/ significant comorbid conditions previously admitted to [facility] for acute on chronic respiratory failure 2/2 PNA + CHF presented to [facility] ED on 03/16 w/ CC of MOSELEY, Lethargy, and fatigue x2 weeks. Patient was subsequently admitted for treatment of Hypercapnic respiratory Acidosis 2/2 HCAP vs decompensated COPD. Patient was placed on bipap overnight; her AM abg showed mild worsening to no change; Bipap settings adjusted and patient reassessed in AM. She is tolerating it relatively well; clinically looks improved. Problem List: HCAP Previously admitted to inpatient as well as rehab within last three months; previous RLL infiltrate CXR - Diffuse R sided pulm infiltrate; unchanged from prior Afebrile; Leukocytosis Lactate wnl S/p 1L bolus Start Vanco renal dosing Start Zosyn renal dosing Bcx negative Ucx pending Procal negative Hypercapnic Respiratory Acidosis Adm ABG -7.30/64/106/31.5 Most recent - 7.30/61/65/30 Bipap throughout the day Hx COPD Duonebs Q6 PRN Brovana 15mcg Q12 Budesonide 0.5mg Q12 HTN Morning pressures elevated because pt. had not received Rx Reevaluate 24 hours Cont Monitoing Norvasc 10 daily Imdur 60 daily Clonidine 0.1 po TID Hx CHF Echo 08/2017 - EF 53% w/ Grade II diastolic dysfunction Pro BNP 3400 Holding Hydralazine 25 TID Holding Metolazone 2.5 QD Holding Metoprolol 100 QD Low salt diet SHELBI on CKD - Baseline Cr 1.8 BUN/Cr 68/2.5 on admission this morning 64/2.3; mildly improving Hold diuretics Avoid nephrotoxic agents Hx DVT/PE Eliquis 2.5 Daily Hx DM w/ Neuropathy Levemir 20 Q12 ISS Low ACHS Lyrica 200 QD UTI Symptomatic; Leuk Esterase + C/w Cipro renal dosing UCx pending Hx tremors Primidone 50 QD Hx HLD Zocor 40 QD Dispo: Continued inpatient management of Hypercapnic Respiratory Failure and other comorbidities DIET: Heart healthy diet low carb ; 2gm Na GI: Protonix 40 IVp DVT: Eliquis as above + SCD Code: FULL CODE Patient seen, examined, and discussed w/ attending physician Dr. Alice De Paz DO PGY1 - Internal Medicine [employer]quin [employer] Artist - Pager [phone]
[2018-03-17] MEDS: Arformoterol 15 mcg/2 ml Inh Sol IH SCH ×2 (08:14→20:40)
[2018-03-17] MEDS: Budesonide 0.5 mg/2 ml Inhal Susp UD IH SCH ×2 (08:15→20:40)
[2018-03-17 08:18] LABS: BASO # 0.05 K/mm3 (0.0-2.0); BASO % 0.5 % (0.0-3.0); EOS # 0.4 (0.0-0.7); EOS % 3.9 % (1.5-5.0); GRAN # 6.64 (1.4-6.5); GRAN % 71.3 % (50.0-68.0); HEMOGLOBIN 9.2 g/dL (12.0-16.0); LYMPH # 1.8 (1.2-3.4); LYMPH % 19.4 % (22.0-35.0); MEAN CELL VOLUME 85.7 fl (80.0-105.0); MEAN CORPUSCULAR HEMOGLOBIN 25.3 pg (25.0-35.0); MEAN CORPUSCULAR HGB CONC 29.6 g/dl (31.0-37.0); MEAN PLATELET VOLUME 10.7 fl (7.0-11.0); MONO # 0.5 (0.1-0.6); MONO % 4.9 % (1.0-6.0); RBC 3.63 10^6/uL (3.5-6.1); RED CELL DISTRIBUTION WIDTH 17.8 % (11.5-14.5); WHITE BLOOD COUNT 9.3 10^3/ul (4.5-11.0)
[2018-03-17 09:03] LABS: ALB/GLOB RATIO 0.8 (1.1-1.8); ALBUMIN 2.9 g/dL (3.0-4.8); CALCIUM 8.6 mg/dL (8.4-10.5)
[2018-03-17 11:21] LABS: ARTERIAL BLOOD GAS O2 SAT 95.6 % (95-98); ARTERIAL BLOOD GAS PCO2 61 mm/Hg (35-45); ARTERIAL BLOOD GAS TCO2 31.9 mmol.L (22-28)
[2018-03-17] MEDS: Multivitamin Vitamin B Complex (Nephro-Vite) Tab PO SCH (11:24)
[2018-03-17] MEDS: Metoprolol Succinate 100 mg XL Tab PO SCH (11:26)
[2018-03-17] MEDS: Vancomycin 500mg in NS 500 MG/100 ML BAG IVPB SCH ×2 (11:27→21:26)
[2018-03-18] MEDS: Piperacillin/Tazobact 2.25gm 2.25 GM/100 ML BAG IVPB SCH ×2 (01:24→07:06)
[2018-03-18] MEDS: Insulin Detemir 100 units/ml Vial (Levemir) SC SCH (07:06)
[2018-03-18 07:32] LABS: BASO # 0.05 K/mm3 (0.0-2.0); BASO % 0.6 % (0.0-3.0); EOS # 0.7 (0.0-0.7); EOS % 8.6 % (1.5-5.0); GRAN # 4.89 (1.4-6.5); GRAN % 60.2 % (50.0-68.0); HEMOGLOBIN 8.7 g/dL (12.0-16.0); LYMPH # 2.2 (1.2-3.4); LYMPH % 27.3 % (22.0-35.0); MEAN CELL VOLUME 84.7 fl (80.0-105.0); MEAN CORPUSCULAR HEMOGLOBIN 25.6 pg (25.0-35.0); MEAN CORPUSCULAR HGB CONC 30.2 g/dl (31.0-37.0); MEAN PLATELET VOLUME 10.9 fl (7.0-11.0); MONO # 0.3 (0.1-0.6); MONO % 3.3 % (1.0-6.0); RBC 3.4 10^6/uL (3.5-6.1); WHITE BLOOD COUNT 8.1 10^3/ul (4.5-11.0)
[2018-03-18 07:49] LABS: ALB/GLOB RATIO 0.8 (1.1-1.8); ALBUMIN 2.9 g/dL (3.0-4.8); CALCIUM 8.7 mg/dL (8.4-10.5)
[2018-03-18] MEDS: Insulin Reg-LOW-Coverage SC SCH ×4 (07:55→22:18)
[2018-03-18] MEDS: Budesonide 0.5 mg/2 ml Inhal Susp UD IH SCH ×2 (08:04→20:25)
[2018-03-18] MEDS: Arformoterol 15 mcg/2 ml Inh Sol IH SCH ×2 (08:04→20:25)
[2018-03-18] MEDS: Multivitamin Vitamin B Complex (Nephro-Vite) Tab PO SCH (10:08)
[2018-03-18] MEDS: Metoprolol Succinate 100 mg XL Tab PO SCH (10:09)
[2018-03-18] MEDS: Vancomycin 500mg in NS 500 MG/100 ML BAG IVPB SCH (10:09)
[2018-03-18 10:11] LABS: ARTERIAL BLOOD GAS HCO3 29.9 mmol/L (21-28); ARTERIAL BLOOD GAS HEMOGLOBIN 8.8 g/dL (11.7-17.4); ARTERIAL BLOOD GAS O2 CAPACITY 12.3 mL/dl (16-24); ARTERIAL BLOOD GAS O2 SAT 97.8 % (95-98); ARTERIAL BLOOD GAS PCO2 53 mm/Hg (35-45); ARTERIAL BLOOD GAS PH 7.36 (7.35-7.45); ARTERIAL BLOOD GAS TCO2 31.5 mmol.L (22-28)
[2018-03-18] MEDS ORDERED: Sodium Chloride 0.9% 1,000 ML IV SCH (15:30)
--- NOTE | 2018-03-18 19:59 | CP.PCM.PN ---
<Adonis De Paz - Last Filed: 03/18/18 19:55> Subjective - Date & Time of Evaluation Date of Evaluation: 03/18/18 Time of Evaluation: 19:55 - Subjective Subjective: Adonis De Paz DO PGY1 - Internal Medicine [facility] - Hospital Progress Note Patient seen and examined at bedside this morning Patient seen and examined today in the AM at bedside. Patient states she fells "better." She states that her legs are swollen, but much less than last time she was here. She would like to walk around. She states she has some SOB with exerti on, but is sitting comfortably at bedside chair. She denies F/C, DIXON, lightheadness, CP, palpitations, abdominal pain, urinary symptoms. Remainder of 12 system ROS is negative at this time. Objective - Vital Signs/Intake and Output Vital Signs (last 24 hours): Temp Pulse Resp BP Pulse Ox 97.9 F 76 20 197/76 H 98 03/18/18 14:00 03/18/18 17:58 03/18/18 14:00 03/18/18 17:58 03/18/18 14:00 - Medications Medications: Current Medications Acetaminophen (Tylenol 325mg Tab) 650 mg PO Q6H PRN PRN Reason: Pain, Mild (1-3) Last Admin: 03/18/18 07:07 Dose: 650 mg Albuterol/Ipratropium (Duoneb 3 Mg/0.5 Mg (3 Ml) Ud) 3 ml IH [id number] PRN PRN Reason: Wheezing Amlodipine Besylate (Norvasc) 10 mg PO DAILY [facility] Last Admin: 03/18/18 10:07 Dose: 10 mg Apixaban (Eliquis) 2.5 mg PO BID [facility]; Protocol Last Admin: 03/18/18 17:55 Dose: 2.5 mg Arformoterol Tartrate (Brovana) 15 mcg IH [id number] [facility] Last Admin: 03/18/18 08:04 Dose: 15 mcg Aspirin (Ecotrin) 81 mg PO DAILY [facility] Last Admin: 03/18/18 10:07 Dose: 81 mg Budesonide (Pulmicort Respules) 0.5 mg IH [id number] [facility] Last Admin: 03/18/18 08:04 Dose: 0.5 mg Clonidine HCl (Catapres) 0.1 mg PO TID [facility] Last Admin: 10/15/18 17:58 Dose: 0.1 mg Hydralazine HCl (Apresoline) 10 mg IVP Q6 PRN PRN Reason: hypertension Vancomycin HCl (Vancomycin 500mg In Ns) 500 mg in 100 mls @ 200 mls/hr IVPB Q12 [facility]; Protocol Last Admin: 03/18/18 10:09 Dose: 200 mls/hr Piperacillin Sod/Tazobactam Sod (Zosyn 3.375 In Ns 100ml) 100 mls @ 25 mls/hr IVPB Q12 JR Stop: 03/19/18 13:59 Sodium Chloride (Sodium Chloride 0.9%) 1,000 mls @ 60 mls/hr IV .[id number] [facility] Last Admin: 03/18/18 15:53 Dose: 60 mls/hr Insulin Detemir (Levemir) 20 unit SC Q12H [facility] Last Admin: 03/18/18 07:06 Dose: Not Given Insulin Human Regular (Humulin R Low) 0 units SC ACHS [facility]; Protocol Last Admin: 03/18/18 12:17 Dose: Not Given Isosorbide Mononitrate (Imdur) 60 mg PO DAILY [facility] Last Admin: 03/18/18 10:09 Dose: 60 mg Metoprolol Succinate (Toprol Xl) 100 mg PO BRK [facility] Last Admin: 03/18/18 10:09 Dose: 100 mg Oxybutynin Chloride (Ditropan Tab) 10 mg PO DAILY [facility] Last Admin: 03/18/18 10:08 Dose: 10 mg Pregabalin (Lyrica) 50 mg PO Q12 [facility] Last Admin: 03/18/18 10:08 Dose: 50 mg Primidone (Mysoline) 50 mg PO DAILY [facility] Last Admin: 03/18/18 10:07 Dose: 50 mg Vitamin B Complex/Vit C/Folic Acid (Nephro-Holland) 1 tab PO 0800 [facility] Last Admin: 03/18/18 10:08 Dose: 1 tab - Labs Labs: 03/18/18 07:00 03/18/18 07:00 PT 12.3 SECONDS (9.4-12.5) 03/16/18 10:20 INR 1.07 03/16/18 10:20 APTT 30.7 Seconds (25.1-36.5) 03/16/18 10:20 Physical Exam - Constitutional Appears: Alertness / SOmonolence much improved; Patient is less confused than initial presentation - Head Exam Head Exam: ATRAUMATIC, NORMOCEPHALIC - Eye Exam Eye Exam: EOMI, PERRL. absent: Scleral icterus - ENT Exam ENT Exam: Mucous Membranes Dry - Respiratory Exam Respiratory Exam: Tolerating bipap well; CTA however respiratory exam is limited - Cardiovascular Exam Cardiovascular Exam: RRR, +S1, +S2. absent: Systolic Murmur - GI/Abdominal Exam GI & Abdominal Exam: Normal Bowel Sounds, Soft. absent: Tenderness Additional comments: Colostomy present; draining appropriately - Extremities Exam Additional comments: 4+ Pitting edema BL lower extremities Extremities warm; Pulses difficult to palpate - Neurological Exam Neurological exam: Alert, CN II-XII Intact, Oriented x3 Additional comments: LUE and LLE strength relatively weaker than than RUE/ RLE ; UE display 5/5 gross strength bilaterally Patient shows no tremors - Psychiatric Exam Psychiatric exam: Less Anxious than day prior - Skin Skin Exam: Dry, Intact, Warm Assessment and Plan - Assessment and Plan (Free Text) Assessment: Assessment: 62F w/ significant comorbid conditions previously admitted to [facility] for acute on chronic respiratory failure 2/2 PNA + CHF presented to [facility] ED on 03/16 w/ CC of MOSELEY, Lethargy, and fatigue x2 weeks. Patient was subsequently admitted for treatment of Hypercapnic respiratory Acidosis 2/2 HCAP vs decompensated COPD. Patient on bipap throughout the day and overnight; she is much more alert and awake; appears to be clinically improving Problem List: SHELBI on CKD - Baseline Cr 1.8 BUN/Cr 68/2.5 on admission this morning 65/2.7 - worsening started NS @ 60cc/hr Hold diuretics Avoid nephrotoxic agents Hypercapnic Respiratory Acidosis Patient was to follow up w/ sleep study/pulm outpt however has not done so; reports she has previously been rejected by insurance for bipap Adm ABG -7.30/64/106/31.5 Most recent - 7.36/53/81/81 Improving Bipap throughout the day Pulmonology consulted, appreciate recommendations HCAP Previously admitted to inpatient as well as rehab within last three months; prev ious RLL infiltrate CXR - Diffuse R sided pulm infiltrate; unchanged from prior Afebrile; Leukocytosis Lactate wnl S/p 1L bolus Start Vanco renal dosing Start Zosyn renal dosing Bcx negative Ucx pending Procal negative ID Consulted, appreciate reccs Hx COPD Duonebs Q6 PRN Brovana 15mcg Q12 Budesonide 0.5mg Q12 HTN Morning pressures elevated because pt. had not received Rx Reevaluate 24 hours Cont Monitoing Norvasc 10 daily Imdur 60 daily Clonidine 0.1 po TID Hx CHF Echo 08/2017 - EF 53% w/ Grade II diastolic dysfunction Pro BNP 3400 Holding Hydralazine 25 TID Holding Metolazone 2.5 QD Holding Lasix 40 QD Low salt diet Hx DVT/PE Eliquis 2.5 Daily Hx DM w/ Neuropathy Sugars well controlled Continue: Levemir 20 Q12 ISS Low ACHS Lyrica 200 QD UTI Symptomatic; Leuk Esterase + C/w Cipro renal dosing UCx contaminated Hx tremors Primidone 50 QD Hx HLD Zocor 40 QD Dispo: Continued inpatient management of Hypercapnic Respiratory Failure and other comorbidities DIET: Heart healthy diet low carb ; 2gm Na GI: Protonix 40 IVp DVT: Eliquis as above + SCD Code: FULL CODE Patient seen, examined, and discussed w/ attending physician Dr. Alice De Paz DO PGY1 - Internal Medicine [facility] - Pager [phone] <Florentino Lewis - Last Filed: 03/21/18 14:07> Objective - Vital Signs/Intake and Output Vital Signs (last 24 hours): Temp Pulse Resp BP Pulse Ox 98.4 F 80 20 199/81 H 97 03/21/18 06:00 03/21/18 09:07 03/21/18 06:00 03/21/18 09:07 03/21/18 06:00 Intake and Output: 03/21/18 03/21/18 06:59 18:59 Intake Total 480 Output Total 550 Balance -70 - Medications Medications: Current Medications Acetaminophen (Tylenol 325mg Tab) 650 mg PO Q6H PRN PRN Reason: Pain, Mild (1-3) Last Admin: 03/21/18 10:53 Dose: 650 mg Albuterol/Ipratropium (Duoneb 3 Mg/0.5 Mg (3 Ml) Ud) 3 ml IH [id number] PRN PRN Reason: Wheezing Last Admin: 03/21/18 13:16 Dose: 3 ml Amlodipine Besylate (Norvasc) 10 mg PO DAILY [facility] Last Admin: 03/21/18 09:06 Dose: 10 mg Apixaban (Eliquis) 2.5 mg PO BID [facility]; Protocol Last Admin: 03/21/18 09:05 Dose: 2.5 mg Arformoterol Tartrate (Brovana) 15 mcg IH [id number] [facility] Last Admin: 03/21/18 07:32 Dose: 15 mcg Aspirin (Ecotrin) 81 mg PO DAILY [facility] Last Admin: 03/21/18 09:06 Dose: 81 mg Budesonide (Pulmicort Respules) 0.5 mg IH [id number] [facility] Last Admin: 03/21/18 07:32 Dose: 0.5 mg Clonidine HCl (Catapres) 0.1 mg PO Q8H JR Doxycycline Hyclate (Doryx) 100 mg PO Q12 [facility]; Protocol Stop: 03/28/18 10:01 Last Admin: 03/21/18 09:06 Dose: 100 mg Ergocalciferol (Drisdol 50,000 Intl Units Cap) 1 cap PO Q7D [facility] Last Admin: 03/20/18 09:57 Dose: 1 cap Furosemide (Lasix) 40 mg PO DAILY [facility] Last Admin: 03/21/18 09:06 Dose: 40 mg Furosemide (Lasix) 20 mg PO DAILY@1800 [facility] Last Admin: 03/20/18 18:01 Dose: 20 mg Hydralazine HCl (Apresoline) 25 mg PO Q8H [facility] Cefepime HCl (Maxipime 1gm) 1 gm in 100 mls @ 25 mls/hr IVPB Q24H [facility]; Protocol Stop: 03/27/18 23:16 Last Admin: 03/20/18 23:30 Dose: 25 mls/hr Insulin Detemir (Levemir) 20 unit SC Q12H [facility] Last Admin: 03/21/18 06:44 Dose: 20 units Insulin Human Regular (Humulin R Low) 0 units SC ACHS [facility]; Protocol Last Admin: 03/21/18 09:07 Dose: Not Given Isosorbide Mononitrate (Imdur) 60 mg PO DAILY [facility] Last Admin: 03/21/18 09:06 Dose: 60 mg Losartan Potassium (Cozaar) 25 mg PO DAILY [facility] Last Admin: 03/21/18 09:07 Dose: 25 mg Metoprolol Succinate (Toprol Xl) 100 mg PO BRK [facility] Last Admin: 03/21/18 08:14 Dose: 100 mg Oxybutynin Chloride (Ditropan Tab) 10 mg PO DAILY [facility] Last Admin: 03/21/18 09:06 Dose: 10 mg Pregabalin (Lyrica) 50 mg PO Q12 [facility] Last Admin: 03/21/18 09:06 Dose: 50 mg Primidone (Mysoline) 50 mg PO DAILY [facility] Last Admin: 03/21/18 09:06 Dose: 50 mg Sodium Chloride ([place] Nasal [place]) 0 ml NS DAILY PRN PRN Reason: Nasal congestion Last Admin: 03/19/18 12:49 Dose: 2 spray Vitamin B Complex/Vit C/Folic Acid (Nephro-Hol[place]) 1 tab PO 0800 [facility] Last Admin: 03/21/18 08:14 Dose: 1 tab - Labs Labs: 03/21/18 07:00 03/21/18 07:00 PT 12.3 SECONDS (9.4-12.5) 03/16/18 10:20 INR 1.07 03/16/18 10:20 APTT 30.7 Seconds (25.1-36.5) 03/16/18 10:20 Attending/Attestation - Attestation I have personally seen and examined this patient.: Yes I have fully participated in the care of the patient.: Yes I have reviewed all pertinent clinical information, including history, physical exam and plan: Yes Notes (Text): 03/21/18 13:59 Attending note; Patient seen and examined with the resident. Patient is alert and awake. Was using BiPAP at night. Currently on oxygen nasal cannula. Complaining of dry nose and minimal irritation with bleeding. Not in any acute distress. Patient is a 62 year old female with past medical history of hypertension, diabetes, CAD, COPD, DVT/PE on eliquis, CKD, colorectal cancer s/p resection and colostomy, morbid obesity and chronic back pain is admitted with acute shortness of breath. 1. Hypercapnic respiratory failure. Secondary to sleep apnea and morbid obesity. Started on BiPAP during night. Continue oxygen during daytime. Continue DuoNeb treatment. Case discussed with kieselguhr regenerator operator Dr. Ayala in detail. 2. Right sided pneumonia and sepsis. ID evaluation appreciated. Patient is on doxycycline and cefepime. Monitor closely. 3. Hypertension; continue Norvasc, Imdur and clonidine. Will restart Lasix. 4. Acute on chronic kidney disease; monitor creatinine closely. Strict input and output ordered. Cozaar on hold. Nephrology evaluation appreciated. 5.Anemia; chronic and stable .hemoglobin is 8.2 . 6. History of DVT and PE; Patient is on eliquis. Continue to monitor CBC closely. 7. History of colostomy; monitor output. Patient has multiple medical issues. Prognosis is guarded. Upon discharge patient will follow-up with PMD Dr. Florian.
[2018-03-18] MEDS ORDERED: Piperacillin/Tazobact 3.375 gm 100 ML IVPB SCH (22:00)
[2018-03-18] MEDS: Cefepime 1gm in NS 100ml 1 GM/100 ML BAG IVPB SCH (23:44)
--- NOTE | 2018-03-18 23:53 | CP.PCM.CON ---
History of Present Illness - History of Present Illness History of Present Illness: See dictated full consult. Past Patient History - Infectious Disease Hx of Infectious Diseases: None - Tetanus Immunizations Tetanus Immunization: Unknown - Past Social History Smoking Status: Never Smoked - CARDIAC Hx Hypertension: Yes - PULMONARY Hx Respiratory Disorders: Yes Hx Bronchitis: Yes - NEUROLOGICAL Hx Neurological Disorder: Yes Hx Dizziness: Yes - HEENT Hx Macular Degeneration: No - RENAL Hx Renal Failure: Yes - ENDOCRINE/METABOLIC Hx Diabetes Mellitus Type 2: Yes - HEMATOLOGICAL/ONCOLOGICAL Hx Blood Disorders: No - INTEGUMENTARY Hx Dermatological Problems: No - MUSCULOSKELETAL/RHEUMATOLOGICAL Hx Falls: No - GASTROINTESTINAL Hx Gastrointestinal Disorders: Yes (RECTAL CA WITH COLOSTOMY,GI BLEED) - GENITOURINARY/GYNECOLOGICAL Hx Genitourinary Disorders: Yes (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,UTI) - PSYCHIATRIC Hx Psychophysiologic Disorder: Yes Hx Anxiety: Yes Hx Substance Use: No - SURGICAL HISTORY Hx Appendectomy: Yes Hx Coronary Stent: Yes Other/Comment: colostomy - ANESTHESIA Hx Anesthesia: Yes Hx Anesthesia Reactions: No Hx Malignant Hyperthermia: No Meds Allergies/Adverse Reactions: Allergies Allergy/AdvReac Type Severity Reaction Status Date / Time No Known Allergies Allergy Verified 03/16/18 16:57 - Medications Medications: Current Medications Acetaminophen (Tylenol 325mg Tab) 650 mg PO Q6H PRN PRN Reason: Pain, Mild (1-3) Last Admin: 03/18/18 07:07 Dose: 650 mg Albuterol/Ipratropium (Duoneb 3 Mg/0.5 Mg (3 Ml) Ud) 3 ml IH [id number] PRN PRN Reason: Wheezing Amlodipine Besylate (Norvasc) 10 mg PO DAILY [facility] Last Admin: 03/18/18 10:07 Dose: 10 mg Apixaban (Eliquis) 2.5 mg PO BID [facility]; Protocol Last Admin: 03/18/18 17:55 Dose: 2.5 mg Arformoterol Tartrate (Brovana) 15 mcg IH [id number] [facility] Last Admin: 03/18/18 20:25 Dose: 15 mcg Aspirin (Ecotrin) 81 mg PO DAILY [facility] Last Admin: 03/18/18 10:07 Dose: 81 mg Budesonide (Pulmicort Respules) 0.5 mg IH [id number] [facility] Last Admin: 03/18/18 20:25 Dose: 0.5 mg Clonidine HCl (Catapres) 0.1 mg PO TID [facility] Last Admin: 03/18/18 17:58 Dose: 0.1 mg Doxycycline Hyclate (Doryx) 100 mg PO Q12 [facility]; Protocol Stop: 03/28/18 10:01 Hydralazine HCl (Apresoline) 10 mg IVP Q6 PRN PRN Reason: hypertension Sodium Chloride (Sodium Chloride 0.9%) 1,000 mls @ 60 mls/hr IV .[id number] [facility] Last Admin: 03/18/18 15:53 Dose: 60 mls/hr Cefepime HCl (Maxipime 1gm) 1 gm in 100 mls @ 25 mls/hr IVPB Q24H [facility]; Protocol Stop: 03/27/18 23:16 Last Admin: 03/18/18 23:44 Dose: 25 mls/hr Insulin Detemir (Levemir) 20 unit SC Q12H [facility] Last Admin: 03/18/18 07:06 Dose: Not Given Insulin Human Regular (Humulin R Low) 0 units SC ACHS [facility]; Protocol Last Admin: 03/18/18 22:18 Dose: Not Given Isosorbide Mononitrate (Imdur) 60 mg PO DAILY [facility] Last Admin: 03/18/18 10:09 Dose: 60 mg Metoprolol Succinate (Toprol Xl) 100 mg PO BRK [facility] Last Admin: 03/18/18 10:09 Dose: 100 mg Oxybutynin Chloride (Ditropan Tab) 10 mg PO DAILY [facility] Last Admin: 03/18/18 10:08 Dose: 10 mg Pregabalin (Lyrica) 50 mg PO Q12 [facility] Last Admin: 03/18/18 21:57 Dose: 50 mg Primidone (Mysoline) 50 mg PO DAILY [facility] Last Admin: 03/18/18 10:07 Dose: 50 mg Vitamin B Complex/Vit C/Folic Acid (Nephro-Holland) 1 tab PO 0800 [facility] Last Admin: 03/18/18 10:08 Dose: 1 tab Results - Vital Signs Recent Vital Signs: Last Vital Signs Temp 98.4 F 03/18/18 22:38 Pulse 78 03/18/18 23:12 Resp 20 03/18/18 22:38 BP 162/62 H 03/18/18 22:38 Pulse Ox 98 03/18/18 22:38 - Labs Result Diagrams: 03/18/18 07:00 03/18/18 07:00 Labs: Laboratory Results - last 24 hr 03/18/18 03/18/18 03/18/18 06:34 07:00 07:00 WBC 8.1 RBC 3.40 L Hgb 8.7 L Hct 28.8 L MCV 84.7 MCH 25.6 MCHC 30.2 L RDW 18.0 H Plt Count 199 MPV 10.9 Gran % 60.2 Lymph % (Auto) 27.3 [place] % (Auto) 3.3 Eos % (Auto) 8.6 H Baso % (Auto) 0.6 Gran # 4.89 Lymph # (Auto) 2.2 [place] # (Auto) 0.3 Eos # (Auto) 0.7 Baso # (Auto) 0.05 pCO2 pO2 HCO3 ABG pH ABG Total CO2 ABG O2 Saturation ABG O2 Content ABG Base Excess ABG Hemoglobin ABG Carboxyhemoglobin POC ABG HHb (Measured) ABG Methemoglobin ABG O2 Capacity Hgb O2 Saturation FiO2 Sodium 138 Potassium 4.6 Chloride 102 Carbon Dioxide 29 Anion Gap 10 BUN 65 H Creatinine 2.7 H Est GFR ( Amer) 22 Est GFR (Non-Af Amer) 18 POC Glucose (mg/dL) 92 Random Glucose 97 Calcium 8.7 Total Bilirubin 0.1 L AST 26 ALT 14 Alkaline Phosphatase 94 Total Protein 6.5 Albumin 2.9 L Globulin 3.6 Albumin/Globulin Ratio 0.8 L Urine Eosinophils Vancomycin Trough Ur L.pneumophila Ag 03/18/18 03/18/18 03/18/18 10:00 11:07 12:20 WBC RBC Hgb Hct MCV MCH MCHC RDW Plt Count MPV Gran % Lymph % (Auto) [place] % (Auto) Eos % (Auto) Baso % (Auto) Gran # Lymph # (Auto) [place] # (Auto) Eos # (Auto) Baso # (Auto) pCO2 53 H pO2 81.0 HCO3 29.9 H ABG pH 7.36 ABG Total CO2 31.5 H ABG O2 Saturation 97.8 ABG O2 Content 12.0 L ABG Base Excess 3.8 H ABG Hemoglobin 8.8 L ABG Carboxyhemoglobin 1.4 POC ABG HHb (Measured) 2.2 ABG Methemoglobin 0.3 ABG O2 Capacity 12.3 L Hgb O2 Saturation 96.1 FiO2 32.0 Sodium Potassium Chloride Carbon Dioxide Anion Gap BUN Creatinine Est GFR ( Amer) Est GFR (Non-Af Amer) POC Glucose (mg/dL) 118 H Random Glucose Calcium Total Bilirubin AST ALT Alkaline Phosphatase Total Protein Albumin Globulin Albumin/Globulin Ratio Urine Eosinophils Vancomycin Trough Ur L.pneumophila Ag Negative 03/18/18 03/18/18 03/18/18 14:30 16:07 21:11 WBC RBC Hgb Hct MCV MCH MCHC RDW Plt Count MPV Gran % Lymph % (Auto) [place] % (Auto) Eos % (Auto) Baso % (Auto) Gran # Lymph # (Auto) [place] # (Auto) Eos # (Auto) Baso # (Auto) pCO2 pO2 HCO3 ABG pH ABG Total CO2 ABG O2 Saturation ABG O2 Content ABG Base Excess ABG Hemoglobin ABG Carboxyhemoglobin POC ABG HHb (Measured) ABG Methemoglobin ABG O2 Capacity Hgb O2 Saturation FiO2 Sodium Potassium Chloride Carbon Dioxide Anion Gap BUN Creatinine Est GFR ( Amer) Est GFR (Non-Af Amer) POC Glucose (mg/dL) 167 H 149 H Random Glucose Calcium Total Bilirubin AST ALT Alkaline Phosphatase Total Protein Albumin Globulin Albumin/Globulin Ratio Urine Eosinophils Negative Vancomycin Trough Ur L.pneumophila Ag 03/18/18 21:58 WBC RBC Hgb Hct MCV MCH MCHC RDW Plt Count MPV Gran % Lymph % (Auto) [place] % (Auto) Eos % (Auto) Baso % (Auto) Gran # Lymph # (Auto) [place] # (Auto) Eos # (Auto) Baso # (Auto) pCO2 pO2 HCO3 ABG pH ABG Total CO2 ABG O2 Saturation ABG O2 Content ABG Base Excess ABG Hemoglobin ABG Carboxyhemoglobin POC ABG HHb (Measured) ABG Methemoglobin ABG O2 Capacity Hgb O2 Saturation FiO2 Sodium Potassium Chloride Carbon Dioxide Anion Gap BUN Creatinine Est GFR ( Amer) Est GFR (Non-Af Amer) POC Glucose (mg/dL) Random Glucose Calcium Total Bilirubin AST ALT Alkaline Phosphatase Total Protein Albumin Globulin Albumin/Globulin Ratio Urine Eosinophils Vancomycin Trough 15.9 H* Ur L.pneumophila Ag
[2018-03-19 04:22] LABS: URINE BILIRUBIN NEGATIVE (NEGATIVE); URINE BLOOD NEGATIVE (NEGATIVE); URINE GLUCOSE (UA) NEGATIVE (NEGATIVE); URINE LEUKOCYTE ESTERASE NEGATIVE Leu/uL (NEGATIVE); URINE PROTEIN 100 mg/dL (<30 mg/dL); URINE UROBILINOGEN 0.2 E.U./dL (<1 E.U./dL)
[2018-03-19 04:42] LABS: URINE APPEARANCE CLEAR (CLEAR); URINE COLOR YELLOW (YELLOW)
[2018-03-19 04:44] LABS: URINE BACTERIA RARE (NEG); URINE RBC 0 - 2 /hpf (0-2); URINE WBC 0 - 2 /hpf (0-6)
--- NOTE | 2018-03-19 05:19 | CON ---
DATE: 03/18/2018 PULMONARY CONSULTATION REFERRING PHYSICIAN: Dr. Lewis REASON FOR CONSULT: Respiratory failure, requiring noninvasive ventilation, has obesity hypoventilation syndrome. HISTORY OF PRESENT ILLNESS: This is a 62-year-old female known to me from previous admission, noncompliant with followup, was discharged to subacute a few weeks ago, stayed in the subacute for a month or so, just recently about 2 weeks ago went home. According to the patient, she felt very weak, could not stand on her feet and collapse, brought into emergency room, found to have a right lung infiltrate, was placed on noninvasive ventilation, presently admitted to hospital, feeling a little better, still has some cough and shortness breath. No chest pain. No abdominal pain. Does have leg swelling. PAST MEDICAL HISTORY: Morbid obesity with hypoventilation syndrome, renal failure, anemia, history of colorectal cancer, requiring surgery and radiation, has a colostomy, also suspected chronic lung disease, morbid obesity, diabetes, hypertension, coronary artery disease, history of stent placement, history of pulmonary embolism and DVT. ALLERGIES: NONE KNOWN. SOCIAL HISTORY: Nonsmoker, nondrinker. FAMILY HISTORY: No significant cardiopulmonary disease reported. MEDICATIONS: She is on hydralazine 10 mg every 6 hours p.r.n., Brovana inhaled twice a day, Catapres 0.4 mg three times a day, Ditropan 10 mg daily, albuterol/Atrovent nebulizer every 6 hours p.r.n., Ecotrin 81 mg daily, Eliquis 2.5 mg twice a day, insulin coverage, Imdur 60 mg daily, Levemir 20 units subcu every 12 hours, Lyrica 50 mg twice a day, primidone 50 mg daily, vitamin B complex with folic acid 1 tab daily, Norvasc 10 mg daily, budesonide inhaled twice a day, IV fluid normal saline 60 mL per hour, Toprol XL 100 mg daily, Tylenol p.r.n., vancomycin 500 mg every 12 hours, also getting Zosyn 3.375 g every 12 hours. REVIEW OF SYSTEMS: Has on and off headache, cough, shortness of breath. No chest pain, no nausea, no vomiting. Colostomy bag working well. Does have a leg swelling. PHYSICAL EXAMINATION: GENERAL: Lying in the bed. VITAL SIGNS: Temperature is 98, heart rate 76, respiratory is 20, blood pressure 197/76, pulse ox 98% on nasal cannula. HEENT: Moist mucous membrane. Crowded airway. Short thick neck. LUNGS: Has scattered rhonchi, prolonged expiratory phase. HEART: S1 and S2. ABDOMEN: Obese, soft, nontender. Colostomy bag working well. EXTREMITIES: Trace edema. NEUROLOGIC: Awake and alert, follows simple commands. LABORATORY DATA: Shows hemoglobin 8.7, hematocrit 28.8, WBC 8.1, platelet is 199. INR on admission 1.07, PTT 31. On admission blood gases shows pH 7.3, pCO2 of 64, O2 106, this was on supplemental oxygen. Today's ABG show pH 7.36, pCO2 of 53, O2 51, this is on nasal cannula but wean on BiPAP overnight. Sodium 138, potassium 4.6, chloride 102, bicarbonate 29, BUN 65, creatinine 2.7, glucose 149, AST 26, ALT 14, alk phos is 94. Albumin is 2.9. Microbiology; blood culture, urine culture, there is no growth. Chest x-ray done in the ER shows right lung infiltrate. IMPRESSION AND PLAN: Chronic respiratory failure with CO2 retention, hypoventilation syndrome, obesity, multilobar pneumonia, history of deep venous thrombosis, pulmonary embolism, coronary artery disease, cardiomyopathy, history of coronary stent, renal insufficiency, history of colon cancer, requiring surgery, has colostomy, morbid obesity. Case discussed with Dr. Lewis. For now, continue antibiotics, bronchodilator. Continue BiPAP while sleeping and sleepy during the daytime, anticoagulation, gastric prophylaxis. Pressure ulcer precaution. Out of bed to chair if possible. We will try to get her noninvasive ventilation before discharge. Thank you and we will follow with you. Pamela Ayala MD
[2018-03-19 06:40] LABS: BASO # 0.03 K/mm3 (0.0-2.0); BASO % 0.4 % (0.0-3.0); EOS # 0.5 (0.0-0.7); EOS % 6.7 % (1.5-5.0); GRAN # 4.76 (1.4-6.5); GRAN % 66.8 % (50.0-68.0); HEMOGLOBIN 8.2 g/dL (12.0-16.0); LYMPH # 1.5 (1.2-3.4); LYMPH % 21.6 % (22.0-35.0); MEAN CELL VOLUME 84.1 fl (80.0-105.0); MEAN CORPUSCULAR HGB CONC 29.7 g/dl (31.0-37.0); MEAN PLATELET VOLUME 10.5 fl (7.0-11.0); MONO # 0.3 (0.1-0.6); MONO % 4.5 % (1.0-6.0); RBC 3.28 10^6/uL (3.5-6.1); RED CELL DISTRIBUTION WIDTH 17.8 % (11.5-14.5); WHITE BLOOD COUNT 7.1 10^3/ul (4.5-11.0)
[2018-03-19] MEDS: Insulin Detemir 100 units/ml Vial (Levemir) SC SCH (06:41)
[2018-03-19 06:45] LABS: ALB/GLOB RATIO 0.8 (1.1-1.8); ALBUMIN 2.7 g/dL (3.0-4.8); ALT/SGPT 13 U/L (7-56); AST/SGOT 28 U/L (14-36); BLOOD UREA NITROGEN 62 mg/dL (7-21); CALCIUM 8.5 mg/dL (8.4-10.5); GFR NON-AFRICAN AMERICAN 25
[2018-03-19] MEDS: Arformoterol 15 mcg/2 ml Inh Sol IH SCH (07:25)
[2018-03-19] MEDS: Budesonide 0.5 mg/2 ml Inhal Susp UD IH SCH (07:25)
[2018-03-19] MEDS: Albuterol-Ipratrop 3 mg / 0.5 (3 ml) UD IH PRN ×2 (08:51→13:19)
--- NOTE | 2018-03-19 09:21 | CP.PCM.PN ---
<Sergio Mari - Last Filed: 03/19/18 15:09> Subjective - Date & Time of Evaluation Date of Evaluation: 03/19/18 Time of Evaluation: 07:30 - Subjective Subjective: Sergio Mari DO, PGY-2: Nephrology Progress Note Patient was seen and examined at bedside. Patient used NIPV device overnight. She denies any nausea, vomiting, dyspnea, or production with cough. Chart review indicates patient has persistent right infiltrate since last admission. Patient is on Wick urinary catheter. Objective - Vital Signs/Intake and Output Vital Signs (last 24 hours): Temp Pulse Resp BP Pulse Ox 97.5 F L 65 18 162/58 H 99 03/19/18 06:00 03/19/18 06:00 03/19/18 06:00 03/19/18 06:00 03/19/18 06:00 Intake and Output: 03/19/18 03/19/18 06:59 18:59 Intake Total 0 Output Total 1600 Balance -1600 - Medications Medications: Current Medications Acetaminophen (Tylenol 325mg Tab) 650 mg PO Q6H PRN PRN Reason: Pain, Mild (1-3) Last Admin: 03/18/18 07:07 Dose: 650 mg Albuterol/Ipratropium (Duoneb 3 Mg/0.5 Mg (3 Ml) Ud) 3 ml IH [id number] PRN PRN Reason: Wheezing Last Admin: 03/19/18 08:51 Dose: 3 ml Amlodipine Besylate (Norvasc) 10 mg PO DAILY [facility] Last Admin: 03/18/18 10:07 Dose: 10 mg Apixaban (Eliquis) 2.5 mg PO BID [facility]; Protocol Last Admin: 03/18/18 17:55 Dose: 2.5 mg Arformoterol Tartrate (Brovana) 15 mcg IH [id number] [facility] Last Admin: 03/19/18 07:25 Dose: 15 mcg Aspirin (Ecotrin) 81 mg PO DAILY [facility] Last Admin: 03/18/18 10:07 Dose: 81 mg Budesonide (Pulmicort Respules) 0.5 mg IH [id number] [facility] Last Admin: 03/19/18 07:25 Dose: 0.5 mg Clonidine HCl (Catapres) 0.1 mg PO TID [facility] Last Admin: 03/18/18 17:58 Dose: 0.1 mg Doxycycline Hyclate (Doryx) 100 mg PO Q12 [facility]; Protocol Stop: 03/28/18 10:01 Furosemide (Lasix) 40 mg PO DAILY [facility] Furosemide (Lasix) 20 mg PO DAILY@1800 [facility] Hydralazine HCl (Apresoline) 10 mg IVP Q6 PRN PRN Reason: hypertension Hydralazine HCl (Apresoline) 25 mg PO Q8H JR Cefepime HCl (Maxipime 1gm) 1 gm in 100 mls @ 25 mls/hr IVPB Q24H [facility]; Protocol Stop: 03/27/18 23:16 Last Admin: 03/18/18 23:44 Dose: 25 mls/hr Insulin Detemir (Levemir) 20 unit SC Q12H [facility] Last Admin: 03/19/18 06:41 Dose: 20 units Insulin Human Regular (Humulin R Low) 0 units SC ACHS [facility]; Protocol Last Admin: 03/18/18 22:18 Dose: Not Given Isosorbide Mononitrate (Imdur) 60 mg PO DAILY [facility] Last Admin: 03/18/18 10:09 Dose: 60 mg Metoprolol Succinate (Toprol Xl) 100 mg PO BRK [facility] Last Admin: 03/18/18 10:09 Dose: 100 mg Oxybutynin Chloride (Ditropan Tab) 10 mg PO DAILY [facility] Last Admin: 03/18/18 10:08 Dose: 10 mg Pregabalin (Lyrica) 50 mg PO Q12 [facility] Last Admin: 03/18/18 21:57 Dose: 50 mg Primidone (Mysoline) 50 mg PO DAILY [facility] Last Admin: 03/18/18 10:07 Dose: 50 mg Vitamin B Complex/Vit C/Folic Acid (Nephro-[place]) 1 tab PO 0800 [facility] Last Admin: 03/18/18 10:08 Dose: 1 tab - Labs Labs: 03/19/18 06:00 03/19/18 06:00 PT 12.3 SECONDS (9.4-12.5) 03/16/18 10:20 INR 1.07 03/16/18 10:20 APTT 30.7 Seconds (25.1-36.5) 03/16/18 10:20 - Constitutional Appears: Non-toxic, No Acute Distress - Head Exam Head Exam: ATRAUMATIC, NORMOCEPHALIC - Eye Exam Eye Exam: EOMI, Normal appearance - ENT Exam ENT Exam: Mucous Membranes Moist, Normal Oropharynx - Respiratory Exam Respiratory Exam: Decreased Breath Sounds (right lung field), NORMAL BREATHING PATTERN - Cardiovascular Exam Cardiovascular Exam: RRR, +S1, +S2 - GI/Abdominal Exam GI & Abdominal Exam: Soft, Normal Bowel Sounds - Extremities Exam Additional comments: 2/4 pitting edema - Neurological Exam Neurological Exam: Alert, Awake - Psychiatric Exam Psychiatric exam: Normal Affect, Normal Mood - Skin Skin Exam: Dry, Intact, Normal Color, Warm Assessment and Plan (1) [id number] kidney injury Assessment & Plan: Patient is stage 3B CKD. Dose antibiotics renally, recommend dosing Cefepime 750 mg q24h, unless otherwise indicated. Status: Acute (2) Nephrotic range proteinuria Assessment & Plan: Previous urine to protein to Creatinine ratio was nephrotic in the past. Will order 24 hour urine protein with electrophoresis. Full serologic work-up for ne phrotic range proteinuria ordered and pending. Status: Acute (3) Chronic kidney disease-mineral and bone disorder Assessment & Plan: 25-hydroxyvitamin D low at 27.0 Start patient of 50,000 of cholecalciferol once a week PTH pending Status: Acute (4) Anemia of chronic disease Assessment & Plan: Iron studies point to a diagnosis of Anemia of Chronic Disease. Will give iron and or Aranesp, unless otherwise indicated. Status: Acute (5) Diastolic CHF Assessment & Plan: Patient on Lasix 40 mg PO daily in AM and 20 mg in evening. Status: Acute (6) Hypertensive chronic kidney disease Assessment & Plan: Patient is on Lasix 40 mg and 20 in evening. Amlodipine 10. Hydralazine 25 q8h. Imdur 60 Clonidine 0.1 TID Status: Acute - Assessment and Plan (Free Text) Plan: We will continue to follow with you <Wes Swift - Last Filed: 03/20/18 08:42> Objective - Vital Signs/Intake and Output Vital Signs (last 24 hours): Temp Pulse Resp BP Pulse Ox 99.7 F H 70 18 177/75 H 96 03/19/18 23:25 03/20/18 06:55 03/19/18 23:25 03/20/18 06:55 03/19/18 23:25 Intake and Output: 03/20/18 03/20/18 06:59 18:59 Intake Total 360 Balance 360 - Medications Medications: Current Medications Acetaminophen (Tylenol 325mg Tab) 650 mg PO Q6H PRN PRN Reason: Pain, Mild (1-3) Last Admin: 03/19/18 13:02 Dose: 650 mg Albuterol/Ipratropium (Duoneb 3 Mg/0.5 Mg (3 Ml) Ud) 3 ml IH [id number] PRN PRN Reason: Wheezing Last Admin: 03/19/18 13:19 Dose: 3 ml Amlodipine Besylate (Norvasc) 10 mg PO DAILY [facility] Last Admin: 03/19/18 10:07 Dose: 10 mg Apixaban (Eliquis) 2.5 mg PO BID [facility]; Protocol Last Admin: 03/19/18 17:25 Dose: 2.5 mg Arformoterol Tartrate (Brovana) 15 mcg IH [id number] Last Admin: 03/20/18 07:42 Dose: 15 mcg Aspirin (Ecotrin) 81 mg PO DAILY [facility] Last Admin: 03/19/18 10:07 Dose: 81 mg Budesonide (Pulmicort Respules) 0.5 mg IH [id number] [facility] Last Admin: 03/20/18 07:43 Dose: 0.5 mg Clonidine HCl (Catapres) 0.1 mg PO TID [facility] Last Admin: 03/19/18 17:25 Dose: 0.1 mg Doxycycline Hyclate (Doryx) 100 mg PO Q12 [facility]; Protocol Stop: 03/28/18 10:01 Last Admin: 03/19/18 23:30 Dose: 100 mg Ergocalciferol (Drisdol 50,000 Intl Units Cap) 1 cap PO Q7D JR Furosemide (Lasix) 40 mg PO DAILY [facility] Last Admin: 03/19/18 10:07 Dose: 40 mg Furosemide (Lasix) 20 mg PO DAILY@1800 [facility] Last Admin: 03/19/18 17:25 Dose: 20 mg Hydralazine HCl (Apresoline) 25 mg PO Q8H [facility] Last Admin: 03/20/18 06:55 Dose: 25 mg Cefepime HCl (Maxipime 1gm) 1 gm in 100 mls @ 25 mls/hr IVPB Q24H [facility]; Protocol Stop: 03/27/18 23:16 Last Admin: 03/20/18 00:44 Dose: 25 mls/hr Insulin Detemir (Levemir) 20 unit SC Q12H [facility] Last Admin: 03/20/18 05:54 Dose: 20 units Insulin Human Regular (Humulin R Low) 0 units SC ACHS [facility]; Protocol Last Admin: 03/19/18 23:30 Dose: Not Given Isosorbide Mononitrate (Imdur) 60 mg PO DAILY [facility] Last Admin: 03/19/18 10:07 Dose: 60 mg Metoprolol Succinate (Toprol Xl) 100 mg PO BRK [facility] Last Admin: 03/19/18 10:08 Dose: 100 mg Oxybutynin Chloride (Ditropan Tab) 10 mg PO DAILY [facility] Last Admin: 03/19/18 10:07 Dose: 10 mg Pregabalin (Lyrica) 50 mg PO Q12 [facility] Last Admin: 03/20/18 00:23 Dose: 50 mg Primidone (Mysoline) 50 mg PO DAILY [facility] Last Admin: 03/19/18 10:07 Dose: 50 mg Sodium Chloride ([place] Nasal [place]) 0 ml NS DAILY PRN PRN Reason: Nasal congestion Last Admin: 03/19/18 12:49 Dose: 2 spray Vitamin B Complex/Vit C/Folic Acid (Nephro-[place]) 1 tab PO 0800 [facility] Last Admin: 03/19/18 10:06 Dose: 1 tab - Labs Labs: 03/20/18 07:00 03/20/18 07:00 PT 12.3 SECONDS (9.4-12.5) 03/16/18 10:20 INR 1.07 03/16/18 10:20 APTT 30.7 Seconds (25.1-36.5) 03/16/18 10:20 Attending/Attestation - Attestation I have personally seen and examined this patient.: Yes I have fully participated in the care of the patient.: Yes I have reviewed all pertinent clinical information, including history, physical exam and plan: Yes Notes (Text): Patient seen and examined; I agree with the resident's note as above with the following additions/edits: Patient with pmh of htn, dm, CAD s/p stent, COPD on home O2, s/p DVT/PE on eliquis, admitted with HCAP/COPD exacerbation; Renal function improved after patient given IVF; nevertheless our management right now will be to continue diuretics as patient has evidence of diastolic CHF and is volume overloaded with elevated BP, JVD and marked peripheral edema; workup sent for etiology of proteinuric kidney disease; will obtain 24 hr urine to assess degree of proteinuria; HTN better controlled but still far from goal, being on standing diuretics will help (can expect serum creatinine to rise); Anemia of CKD; will give dose of aranesp;
[2018-03-19] MEDS: Multivitamin Vitamin B Complex (Nephro-Vite) Tab PO SCH (10:06)
[2018-03-19] MEDS: Metoprolol Succinate 100 mg XL Tab PO SCH (10:08)
--- NOTE | 2018-03-19 10:43 | CON ---
DATE: 03/19/2018 NEPHROLOGY CONSULTATION HISTORY OF PRESENT ILLNESS: The patient is a 62-year-old female with past medical history of hypertension; diabetes; COPD, on 3 L home O2; status post DVT/PE, on Eliquis; and CAD, status post stent; colorectal cancer, status post resection and colostomy; morbid obesity; and CKD stage III, presented to ED status post fall. Nephrology being consulted for renal insufficiency. The patient was discharged last month from [facility] after an admission for bilateral pneumonia, was discharged to rehab facility before going home. The patient reports that her breathing has been stable since initial discharge. Denies any cough. Ambulation has been limited with the patient only able to walk using walker. Otherwise denies any chest pain or palpitations. Reports having shaking episode prior to presentation when she fell. The patient otherwise had been seeing a activities attendant as an outpatient many years ago; reports having had some issue with hyperkalemia in the past; reports some intermittent dysuria. Urinates about three times per night. PAST MEDICAL HISTORY: As above. SOCIAL HISTORY: Denies ever smoking. FAMILY HISTORY: Denies any renal failure. REVIEW OF SYSTEMS: Constitutional: Good appetite. HEENT: Denies any dysphagia or sore throat. Respiratory: As per HPI. Cardiovascular: As per HPI. Reports intermittent leg swelling that occurs when she is seated and improves when she has her legs straightened. Neuro: Reports an intermittent dizziness. GI: Denies any nausea, vomiting, or diarrhea. : As per HPI. Musculoskeletal: Has chronic back and leg pain, for which she uses p.o. Dilaudid at home, rarely uses ibuprofen. PHYSICAL EXAMINATION: Vital Signs: This evening, blood pressure 162/62, heart rate 75, respirations 20, temperature 98.4, and O2 sat 98% on O2 via nasal cannula. General: No distress. Conversing coherently in full sentences. HEENT: Moist mucous membranes. Nonicteric. No cervical lymphadenopathy. Respiratory: Lungs clear to auscultation bilaterally. No respiratory distress. No rales or rhonchi. No wheezes. Cardiovascular: Regular rate and rhythm. No rubs. No gallops. Elevated JVD. Extremities: 2+ lower extremity edema bilaterally. GI: Abdomen soft, nontender, nondistended. : Mild suprapubic tenderness. No bladder distention overtly. Skin: Warm. No cyanosis. Neuro: No resting tremor. Psychiatric: Normal mood, normal affect. LABORATORY DATA: CBC: WBC 8.1, hemoglobin 8.7, hematocrit 28.8, platelets 199. Chemistry panel: Sodium 138, potassium 4.6, chloride 102, bicarb 29, BUN 65, creatinine 2.7, glucose 97, calcium 8.7, AST 26, ALT 14, albumin 2.9, decreased from 3.5 on presentation. Urine studies, UA showing 3+ protein. Chest x-ray: Directly visualized showing right-sided infiltrate. ASSESSMENT AND PLAN: 1. Acute kidney injury on chronic kidney disease IIIB. The patient with proteinuric kidney disease in the setting of diabetes that was previously very poorly controlled. Serum creatinine has been progressively increasing over the last few years. Baseline serum creatinine about 1.5 recently corresponding to EGFR of 35 mL per minute. On review of records, the patient does not have any extensive workup to look for other causes of proteinuric kidney disease. Current degree of acute kidney injury is unchanged from previous admission; maybe hemodynamically mediated in the setting of aggressive diuresis. The patient still has signs of volume excess on exam. Otherwise stable electrolyte status. Recommend to continue standing dose of Lasix 40 mg p.o. daily along with 20 mg p.o. in the evening. We will obtain detailed serologic workup to look for other possible causes of proteinuric kidney disease. We will repeat random urine for protein and creatinine. 2. Congestive heart failure with evidence of diastolic dysfunction. The patient currently with signs of volume excess on exam and is rather hypertensive. Recommend to continue with diuretics as mentioned above. 3. Hypertensive chronic kidney disease. Blood pressure uncontrolled. The patient is currently on clonidine 0.1 mg t.i.d., amlodipine 10 mg daily, Imdur 60 mg daily, Toprol XL 100 mg daily; had been on hydralazine 25 mg t.i.d. at home. We will restart the same. We will DC IV fluids. 4. Pneumonia. The patient is currently being covered with broad-spectrum antibiotics for possible healthcare-associated pneumonia, on vanco 500 mg every 12 hours and Zosyn 3.375 mg every 12 hours. We will hold vanco dose this evening and obtain trough level before re-dosing in order to avoid nephrotoxicity. 5. Anemia. Hemoglobin little below goal of 10 to 11 g in advanced chronic kidney disease. We will check iron studies, may need to start iron infusions and/or Aranesp. 6. Chronic kidney disease mineral bone disorder. Phos was mildly elevated. We will check PTH and 25-hydroxy vitamin D levels. Thank you for this referral. We will be following up closely. Wes Swift MD
--- NOTE | 2018-03-19 11:01 | CON ---
DATE: 03/18/2018 The patient was seen earlier today in room# 568. CHIEF COMPLAINT: Weakness times several days. HISTORY OF PRESENT ILLNESS: This is a 62-year-old female with no known allergies. Past medical history is significant for the patient with diabetes mellitus, coronary artery disease, history of cardiac cath and stent, history of obstructive sleep apnea, history of rectal cancer, history of colostomy, appendectomy, cardiac stents, anxiety, super morbid obesity with a BMI of 56, who was admitted now with diagnosis of pneumonia, leukocytosis and fatigue. Infectious Disease consultation requested for antibiotic choices. The patient states that she has some cough. REVIEW OF SYSTEMS: Low-grade fevers. No chest pain now. She had some abdominal discomfort, and no dysuria or frequency. A 12-point review of systems is performed. PAST MEDICAL HISTORY: Significant for super morbid obesity with a BMI of 56, diabetes mellitus, coronary artery disease, hypertension, congestive heart failure, rectal cancer, which was unresectable and had chemo and radiation in the past, obstructive sleep apnea, pulmonary emboli. The patient had VRE urinary tract infection and ESBL Klebsiella, pyelonephritis, has a Port-A-Cath in. PAST SURGICAL HISTORY: Significant for Port-A-Cath, cardiac catheterization, stent placement, colostomy, appendectomy. ALLERGIES: THE PATIENT HAS NO KNOWN ALLERGIES. MEDICATIONS AT HOME: Reviewed. PHYSICAL EXAMINATION: GENERAL: On exam, the patient is in bed, extremely large female, difficulty moving because of her size. VITAL SIGNS: BMI of 56, temperature of 98, pulse OF 76, it was up to 96, respiratory rate of 20, blood pressure is 180/70. HEENT: Examination of HEENT is unremarkable. NECK: Supple. LUNGS: Decreased breath sounds. HEART: Normal S1, S2. ABDOMEN: Soft. LABORATORY EXAMINATION: Reveals a white count of 14,000, hemoglobin of 9. Chemistries reveals a BUN of 65 and creatinine of 2.7. The patient has had renal disease in the past with elevated creatinine. The patient also had a procalcitonin, which revealed to be 0.10. Urinalysis is unremarkable. Toxicology reveals vancomycin trough of 15.9. Urine for Legionella antigen is negative and influenza is negative. Microbiology reveals the urine culture mixed organisms and blood cultures show no growth. Chest x-ray, persistent right lung pulmonary infiltrate. No definite left-sided infiltrate. Diffuse right-sided pulmonary infiltrate, grossly unchanged from prior x-ray. Dr. De Paz's note is reviewed. The patient also had an echo in August, which revealed an ejection fraction of 53%. ASSESSMENT AND PLAN: This is a 62-year-old female with diabetes mellitus; coronary artery disease; obstructive sleep apnea; rectal cancer, unresectable, and had chemotherapy and radiation; anxiety; super morbid obesity, BMI of 56; hypertension; congestive heart failure; pulmonary emboli; renal disease; history of vancomycin-resistant enterococcus; history of recent hospitalization, now is admitted with sepsis with a healthcare-associated pneumonia. Currently on vancomycin and Zosyn. We will discontinue the vancomycin because of the presence of creatinine of 2.7. We will also discontinue the Zosyn because of volume and high sodium load of low piperacillin. We will use Maxipime and doxycycline. Check on the final blood cultures and order sputum cultures, nasal methicillin-resistant Staphylococcus aureus screen, and we will make further recommendations upon the initial imaging, cultures, and antibiotic response. I will also order an ANCA screen and vasculitis to rule out Emy's and glomerular basement membrane. We will make further recommendations upon availability of initial results. Lawrence Cheek MD
[2018-03-19 12:08] LABS: HEPATITIS B SURFACE AG Negative (NEGATIVE)
[2018-03-19 12:13] LABS: COMPLEMENT C4 66.9 mg/dL (14.0-44.0)
[2018-03-19 12:25] LABS: HEPATITIS C ANTIBODY NEGATIVE (NEGATIVE)
[2018-03-19] MEDS: Insulin Reg-LOW-Coverage SC SCH ×3 (12:53→23:30)
--- NOTE | 2018-03-19 14:25 | CP.PCM.PN ---
<Adonis De Paz - Last Filed: 03/19/18 21:32> Subjective - Date & Time of Evaluation Date of Evaluation: 03/19/18 Time of Evaluation: 14:21 - Subjective Subjective: Adonis De Paz DO PGY1 - Internal Medicine Eligibility And Occupancy Interviewer - Hospital Progress Note Patient seen and examined in the A.M at bedside. Patient stated that she used BiPAP all night and she was able to breathe well all night; but was unable to get a good night's rest thus she is very tired. Ms. Guevara had a nosebleed from the right nostril. She states that her SOB has decreased with the use of the BiPAP and is feeling better in regards to her breathing. Patient stated that she feels weak, but is open to going to TCU and would like to be able to walk around more. Patient denied headache, lightheadedness, sore throat, CP, palpitations, back pain, abdominal pain, nausea, vomiting, urinary symptoms, leg pain. Patient was again seen this afternoon at bedside; Nursing informed patient was febrile and hypertensive w/ SBP in 200s. Hydralazine PRN given; cultures drawn. Patient complained of some chills. Alertness/ Awakeness was unchanged from presentation in AM. Objective - Vital Signs/Intake and Output Vital Signs (last 24 hours): Temp Pulse Resp BP Pulse Ox 97.5 F L 99 H 18 156/65 H 99 03/19/18 06:00 03/19/18 14:06 03/19/18 06:00 03/19/18 14:06 03/19/18 06:00 Intake and Output: 03/19/18 03/19/18 06:59 18:59 Intake Total 0 Output Total 1600 Balance -1600 - Medications Medications: Current Medications Acetaminophen (Tylenol 325mg Tab) 650 mg PO Q6H PRN PRN Reason: Pain, Mild (1-3) Last Admin: 03/19/18 13:02 Dose: 650 mg Albuterol/Ipratropium (Duoneb 3 Mg/0.5 Mg (3 Ml) Ud) 3 ml IH [id number] PRN PRN Reason: Wheezing Last Admin: 03/19/18 13:19 Dose: 3 ml Amlodipine Besylate (Norvasc) 10 mg PO DAILY JR Last Admin: 03/19/18 10:07 Dose: 10 mg Apixaban (Eliquis) 2.5 mg PO BID [facility]; Protocol Last Admin: 03/19/18 12:49 Dose: 2.5 mg Arformoterol Tartrate (Brovana) 15 mcg IH [id number] [facility] Last Admin: 03/19/18 07:25 Dose: 15 mcg Aspirin (Ecotrin) 81 mg PO DAILY [facility] Last Admin: 03/19/18 10:07 Dose: 81 mg Budesonide (Pulmicort Respules) 0.5 mg IH [id number] [facility] Last Admin: 03/19/18 07:25 Dose: 0.5 mg Clonidine HCl (Catapres) 0.1 mg PO TID [facility] Last Admin: 03/19/18 14:06 Dose: 0.1 mg Doxycycline Hyclate (Doryx) 100 mg PO Q12 [facility]; Protocol Stop: 03/28/18 10:01 Last Admin: 03/19/18 10:06 Dose: 100 mg Furosemide (Lasix) 40 mg PO DAILY [facility] Last Admin: 03/19/18 10:07 Dose: 40 mg Furosemide (Lasix) 20 mg PO DAILY@1800 JR Hydralazine HCl (Apresoline) 10 mg IVP Q6 PRN PRN Reason: hypertension Last Admin: 03/19/18 12:59 Dose: 10 mg Hydralazine HCl (Apresoline) 25 mg PO Q8H [facility] Last Admin: 03/19/18 14:06 Dose: Not Given Cefepime HCl (Maxipime 1gm) 1 gm in 100 mls @ 25 mls/hr IVPB Q24H [facility]; Protocol Stop: 03/27/18 23:16 Last Admin: 03/18/18 23:44 Dose: 25 mls/hr Insulin Detemir (Levemir) 20 unit SC Q12H [facility] Last Admin: 03/19/18 06:41 Dose: 20 units Insulin Human Regular (Humulin R Low) 0 units SC ACHS [facility]; Protocol Last Admin: 03/19/18 14:07 Dose: Not Given Isosorbide Mononitrate (Imdur) 60 mg PO DAILY [facility] Last Admin: 03/19/18 10:07 Dose: 60 mg Metoprolol Succinate (Toprol Xl) 100 mg PO BRK [facility] Last Admin: 03/19/18 10:08 Dose: 100 mg Oxybutynin Chloride (Ditropan Tab) 10 mg PO DAILY [facility] Last Admin: 03/19/18 10:07 Dose: 10 mg Pregabalin (Lyrica) 50 mg PO Q12 [facility] Last Admin: 03/19/18 10:07 Dose: 50 mg Primidone (Mysoline) 50 mg PO DAILY [facility] Last Admin: 03/19/18 10:07 Dose: 50 mg Sodium Chloride ([place] Nasal [place]) 0 ml NS DAILY PRN PRN Reason: Nasal congestion Last Admin: 03/19/18 12:49 Dose: 2 spray Vitamin B Complex/Vit C/Folic Acid (Nephro-Holland) 1 tab PO 0800 [facility] Last Admin: 03/19/18 10:06 Dose: 1 tab - Labs Labs: 03/19/18 06:00 03/19/18 06:00 PT 12.3 SECONDS (9.4-12.5) 03/16/18 10:20 INR 1.07 03/16/18 10:20 APTT 30.7 Seconds (25.1-36.5) 03/16/18 10:20 Physical Exam - Constitutional Appears: Somnolent in the morning; however much less fatigued in afternoon. Presentation unchanged from day prior. - Head Exam Head Exam: ATRAUMATIC, NORMOCEPHALIC - Eye Exam Eye Exam: EOMI, PERRL. absent: Scleral icterus - ENT Exam ENT Exam: Mucous Membranes Moist, R nasal passage w/ some minimal bleeding - Respiratory Exam Respiratory Exam: Tolerating bipap well; RLL Rales appreciated; no wheezes; good air movement throughout - Cardiovascular Exam Cardiovascular Exam: RRR, +S1, +S2. absent: Systolic Murmur - GI/Abdominal Exam GI & Abdominal Exam: Normal Bowel Sounds, Soft. absent: Tenderness Additional comments: Colostomy present; draining appropriately - Extremities Exam Additional comments: 4+ Pitting edema BL lower extremities Extremities warm; Pulses difficult to palpate - Neurological Exam Neurological exam: Alert, CN II-XII Intact, Oriented x3 Additional comments: LUE and LLE strength relatively weaker than than RUE/ RLE ; UE display 5/5 gross strength bilaterally Patient shows no tremors - Psychiatric Exam Psychiatric exam: Comfortable, normal affect, normal mood - Skin Skin Exam: Dry, Intact, Warm Assessment and Plan - Assessment and Plan (Free Text) Assessment: Assessment: 62F w/ significant comorbid conditions previously admitted to [facility] for acute on chronic respiratory failure 2/2 PNA + CHF presented to [facility] ED on 03/16 w/ CC of [place]SE[place], Lethargy, and fatigue x2 weeks. Patient was subsequently admitted for treatment of Hypercapnic respiratory Acidosis 2/2 HCAP vs decompensated COPD. Patient is still on bipap at this time; stable presentation from day prior. C/o chills in the afternoon and febrile today. BCx drawn; will continue to monitor at this time. Problem List: SHELBI on CKD - Baseline Cr 1.8 Previous UAs point towards gross proteinuria BUN/Cr 68/2.5 on admission this morning 62/2.0 - improving DC NS @ 60cc/hr Lasix 40PO QD, Lasix 20PO @ 1800 as per Nephro 24Hour urine collection; Marrero started today Avoid nephrotoxic agents Urine eosinophil negative Hypercapnic Respiratory Acidosis Patient was to follow up w/ sleep study/pulm outpt however has not done so; reports she has previously been rejected by insurance for bipap Adm ABG -7.30/64/106/31.5 ; Most recent - 7.36/53/81/81 Bipap throughout the day ; Had complaints of nose bleed today; Started Nasal Saline Pulmonology consulted, appreciate recommendations HCAP Previously admitted to inpatient as well as rehab within last three months; previous RLL infiltrate CXR - Diffuse R sided pulm infiltrate; unchanged from prior Febrile this afternoon w/o leukocytosis; Will closely monitor; possible need for CT Chest tomorrow if unstable Lactate wnl S/p 1L bolus DC Vanc/Zosyn renally dosed Start Doxycycline + Cefepime as per ID Bcx negative Repeat BCx drawn in setting of new fevers Ucx pending Procal negative ID Consulted, appreciate reccs HTN Hypertensive this afternoon; required hydralazine PRN Dose Norvasc 10 daily Imdur 60 daily Clonidine 0.1 po TID Hx COPD Duonebs Q6 PRN Brovana 15mcg Q12 Budesonide 0.5mg Q12 Started Chest PT Hx CHF Echo 08/2017 - EF 53% w/ Grade II diastolic dysfunction Pro BNP 3400 Holding Metolazone 2.5 QD Low salt diet Hx DVT/PE Eliquis 2.5 Daily Hx DM w/ Neuropathy Sugars well controlled Continue: Levemir 20 Q12 ISS Low ACHS Lyrica 200 QD UTI Symptomatic; Leuk Esterase + DC Cipro UCx contaminated Hx tremors Primidone 50 QD Hx HLD Zocor 40 QD Dispo: Continued inpatient management of Hypercapnic Respiratory Failure and other comorbidities; Continued medical management at this time. Patient is to follow up w/ PMD Dr. Florian once discharged DIET: Heart healthy diet low carb ; 2gm Na GI: Protonix 40 IVp DVT: Eliquis as above + SCD Code: FULL CODE Patient seen, examined, and discussed w/ attending physician Dr. Debbie De Paz DO PGY1 - Internal Medicine Eligibility And Occupancy Interviewer - Pager [phone] <Florentino Lewis - Last Filed: 03/21/18 14:11> Objective - Vital Signs/Intake and Output Vital Signs (last 24 hours): Temp Pulse Resp BP Pulse Ox 98.4 F 80 20 199/81 H 97 03/21/18 06:00 03/21/18 09:07 03/21/18 06:00 03/21/18 09:07 03/21/18 06:00 Intake and Output: 03/21/18 03/21/18 06:59 18:59 Intake Total 480 Output Total 550 Balance -70 - Medications Medications: Current Medications Acetaminophen (Tylenol 325mg Tab) 650 mg PO Q6H PRN PRN Reason: Pain, Mild (1-3) Last Admin: 03/21/18 10:53 Dose: 650 mg Albuterol/Ipratropium (Duoneb 3 Mg/0.5 Mg (3 Ml) Ud) 3 ml IH [id number] PRN PRN Reason: Wheezing Last Admin: 03/21/18 13:16 Dose: 3 ml Amlodipine Besylate (Norvasc) 10 mg PO DAILY [facility] Last Admin: 03/21/18 09:06 Dose: 10 mg Apixaban (Eliquis) 2.5 mg PO BID [facility]; Protocol Last Admin: 03/21/18 09:05 Dose: 2.5 mg Arformoterol Tartrate (Brovana) 15 mcg IH [id number] [facility] Last Admin: 03/21/18 07:32 Dose: 15 mcg Aspirin (Ecotrin) 81 mg PO DAILY [facility] Last Admin: 03/21/18 09:06 Dose: 81 mg Budesonide (Pulmicort Respules) 0.5 mg IH [id number] [facility] Last Admin: 03/21/18 07:32 Dose: 0.5 mg Clonidine HCl (Catapres) 0.1 mg PO Q8H JR Doxycycline Hyclate (Doryx) 100 mg PO Q12 [facility]; Protocol Stop: 03/28/18 10:01 Last Admin: 03/21/18 09:06 Dose: 100 mg Ergocalciferol (Drisdol 50,000 Intl Units Cap) 1 cap PO Q7D [facility] Last Admin: 03/20/18 09:57 Dose: 1 cap Furosemide (Lasix) 40 mg PO DAILY [facility] Last Admin: 03/21/18 09:06 Dose: 40 mg Furosemide (Lasix) 20 mg PO DAILY@1800 JR Last Admin: 03/20/18 18:01 Dose: 20 mg Hydralazine HCl (Apresoline) 25 mg PO Q8H JR Cefepime HCl (Maxipime 1gm) 1 gm in 100 mls @ 25 mls/hr IVPB Q24H [facility]; Protocol Stop: 03/27/18 23:16 Last Admin: 03/20/18 23:30 Dose: 25 mls/hr Insulin Detemir (Levemir) 20 unit SC Q12H [facility] Last Admin: 03/21/18 06:44 Dose: 20 units Insulin Human Regular (Humulin R Low) 0 units SC ACHS [facility]; Protocol Last Admin: 03/21/18 09:07 Dose: Not Given Isosorbide Mononitrate (Imdur) 60 mg PO DAILY [facility] Last Admin: 03/21/18 09:06 Dose: 60 mg Losartan Potassium (Cozaar) 25 mg PO DAILY [facility] Last Admin: 03/21/18 09:07 Dose: 25 mg Metoprolol Succinate (Toprol Xl) 100 mg PO BRK [facility] Last Admin: 03/21/18 08:14 Dose: 100 mg Oxybutynin Chloride (Ditropan Tab) 10 mg PO DAILY [facility] Last Admin: 03/21/18 09:06 Dose: 10 mg Pregabalin (Lyrica) 50 mg PO Q12 [facility] Last Admin: 03/21/18 09:06 Dose: 50 mg Primidone (Mysoline) 50 mg PO DAILY [facility] Last Admin: 03/21/18 09:06 Dose: 50 mg Sodium Chloride ([place] Nasal [place]) 0 ml NS DAILY PRN PRN Reason: Nasal congestion Last Admin: 03/19/18 12:49 Dose: 2 spray Vitamin B Complex/Vit C/Folic Acid (Nephro-[place]) 1 tab PO 0800 JR Last Admin: 03/21/18 08:14 Dose: 1 tab - Labs Labs: 03/21/18 07:00 03/21/18 07:00 PT 12.3 SECONDS (9.4-12.5) 03/16/18 10:20 INR 1.07 03/16/18 10:20 APTT 30.7 Seconds (25.1-36.5) 03/16/18 10:20 Attending/Attestation - Attestation I have personally seen and examined this patient.: Yes I have fully participated in the care of the patient.: Yes I have reviewed all pertinent clinical information, including history, physical exam and plan: Yes Notes (Text): 03/21/18 14:08 Attending note; Patient seen and examined with the resident. Patient is alert and awake. Was using BiPAP at night. Currently on oxygen nasal cannula. Not in any acute distress. Patient is a 62 year old female with past medical history of hypertension, diabetes, CAD, COPD, DVT/PE on eliquis, CKD, colorectal cancer s/p resection and colostomy, morbid obesity and chronic back pain is admitted with acute short ness of breath. 1. Hypercapnic respiratory failure. Secondary to sleep apnea and morbid obesity. Started on BiPAP during night. Continue oxygen during daytime. Continue DuoNeb treatment. Case discussed with data analyst Dr. Ayala in detail. Case discussed with mental health case manager for outpatient BiPAP/CPAP arrangement. nasal saline/humidified oxygen to avoid nosebleeds. 2. Right sided pneumonia and sepsis. ID evaluation appreciated. Patient is on doxycycline and cefepime. Monitor closely. 3. Hypertension; continue Norvasc, Imdur and clonidine. Will restart Lasix. 4. Acute on chronic kidney disease; creatinine is improving .continue Lasix . Strict input and output ordered. Cozaar on hold. Nephrology evaluation appreciated. 5.Anemia; chronic and stable .hemoglobin is 8.2 . 6. History of DVT and PE; Patient is on eliquis. Continue to monitor CBC closely. 7. History of colostomy; monitor output. PT evaluation appreciated. Patient is strongly advised to get out of bed to chair as possible. Patient has multiple medical issues. Prognosis is guarded. Upon discharge patient will follow-up with PMD Dr. Florian. 03/21/18 14:09
[2018-03-20 00:24] LABS: SOURCE SERUM
[2018-03-20] MEDS: Cefepime 1gm in NS 100ml 1 GM/100 ML BAG IVPB SCH ×2 (00:44→23:30)
--- NOTE | 2018-03-20 01:46 | PN ---
DATE: 03/19/2018 PULMONARY PROGRESS NOTE REFERRING PHYSICIAN: Florentino Lewis MD. SUBJECTIVE: The patient is lying in the bed, head at 45 degrees. Tolerating BiPAP well. Complaining about chest tightness, shortness of breath. No nausea, no vomiting, no diarrhea. Colostomy working well. Trace leg swelling. OBJECTIVE: GENERAL: In no acute distress. VITAL SIGNS: Temperature is 99, heart rate is 74, respiratory rate is 18, blood pressure 141/53, pulse ox 96% on 40% oxygen. HEENT: Moist mucous membrane. Crowded airway. NECK: Supple. No JVD. LUNGS: Have prolonged expiratory phase with some rhonchi. HEART: S1 and S2. ABDOMEN: Soft, nontender and nondistended. Colostomy bag looks okay. EXTREMITIES: Trace edema. NEUROLOGICAL: Awake and alert. Follows simple command. MEDICATIONS: She is on hydralazine every 8 hours, Brovana inhaled twice a day, clonidine 0.1 mg three times a day, oxybutynin 10 mg daily, doxycycline 100 mg twice a day, vitamin D 50,000 units every 7 days, DuoNeb every 6 hours p.r.n., Ecotrin 81 mg daily, Eliquis 2.5 mg twice a day, insulin coverage, Imdur 60 mg daily, Lasix 40 mg daily, also Lasix 20 mg at bedtime, Levemir 20 units subcu twice a day, Lyrica 50 mg twice a day, cefepime 1 g IV every 24 hours, Mysoline 50 mg daily, Nephro vitamins daily, Norvasc 10 mg daily, nasal saline p.r.n., Pulmicort inhaled twice a day, Toprol-XL 100 mg daily, Tylenol p.r.n. basis. LABORATORY DATA: Shows hemoglobin 8.2, hematocrit 27.6, WBC 7.1, platelet is 183. Sodium 140, potassium 4.6, chloride 105, bicarbonate 30, BUN 62, creatinine 2, glucose 151, calcium 8.5, iron is 38, ferritin 229, AST 28, ALT 13, alk phos is 88, albumin is 2.7. Microbiology: Blood culture, urine culture, there is no growth. IMPRESSION AND PLAN: Chronic respiratory failure with carbon dioxide retention and hypoxemia, probably has a hypoventilation syndrome, obesity, multilobar infiltrate, history of deep venous thrombosis, pulmonary embolism, coronary artery disease, cardiomyopathy, history of coronary stent, renal insufficiency, colon cancer requiring surgery, has a colostomy, morbid obesity. We will continue diuretics, antibiotics, anticoagulation. Add inhaled bronchodilator. Encourage bilevel positive airway pressure use at night. May use bilevel positive airway pressure if sleepy and short of breath during the daytime. Follow up labs in the morning. Thank you and we will follow with you. Pamela Ayala MD
[2018-03-20] MEDS: Insulin Detemir 100 units/ml Vial (Levemir) SC SCH ×3 (05:54→16:37)
--- NOTE | 2018-03-20 06:56 | CP.PCM.PN ---
Subjective - Date & Time of Evaluation Date of Evaluation: 03/20/18 Time of Evaluation: 06:56 - Subjective Subjective: Sergio Mari DO, PGY-2: Nephrology Progress Note for Dr. Swift Patient was seen and examined at bedside. Patient denies any recollection of having a fever in the past 24 hours. Night nurse reports 24 hour urine collection began at 3:00 because the urinal attached to the Marrero was not kept in ice. Patient denies any productive cough, dyspnea, headache, or vision changes. Objective - Vital Signs/Intake and Output Vital Signs (last 24 hours): Temp Pulse Resp BP Pulse Ox 99.7 F H 70 18 177/75 H 96 03/19/18 23:25 03/20/18 06:55 03/19/18 23:25 03/20/18 06:55 03/19/18 23:25 Intake and Output: 03/19/18 03/20/18 18:59 06:59 Intake Total 360 Balance 360 - Medications Medications: Current Medications Acetaminophen (Tylenol 325mg Tab) 650 mg PO Q6H PRN PRN Reason: Pain, Mild (1-3) Last Admin: 03/19/18 13:02 Dose: 650 mg Albuterol/Ipratropium (Duoneb 3 Mg/0.5 Mg (3 Ml) Ud) 3 ml IH [id number] PRN PRN Reason: Wheezing Last Admin: 03/19/18 13:19 Dose: 3 ml Amlodipine Besylate (Norvasc) 10 mg PO DAILY [facility] Last Admin: 03/19/18 10:07 Dose: 10 mg Apixaban (Eliquis) 2.5 mg PO BID [facility]; Protocol Last Admin: 03/19/18 17:25 Dose: 2.5 mg Arformoterol Tartrate (Brovana) 15 mcg IH [id number] [facility] Last Admin: 03/19/18 07:25 Dose: 15 mcg Aspirin (Ecotrin) 81 mg PO DAILY [facility] Last Admin: 03/19/18 10:07 Dose: 81 mg Budesonide (Pulmicort Respules) 0.5 mg IH [id number] [facility] Last Admin: 03/19/18 07:25 Dose: 0.5 mg Clonidine HCl (Catapres) 0.1 mg PO TID [facility] Last Admin: 03/19/18 17:25 Dose: 0.1 mg Doxycycline Hyclate (Doryx) 100 mg PO Q12 JR; Protocol Stop: 03/28/18 10:01 Last Admin: 03/19/18 23:30 Dose: 100 mg Ergocalciferol (Drisdol 50,000 Intl Units Cap) 1 cap PO Q7D JR Furosemide (Lasix) 40 mg PO DAILY [facility] Last Admin: 03/19/18 10:07 Dose: 40 mg Furosemide (Lasix) 20 mg PO DAILY@1800 JR Last Admin: 03/19/18 17:25 Dose: 20 mg Hydralazine HCl (Apresoline) 25 mg PO Q8H [facility] Last Admin: 03/20/18 06:55 Dose: 25 mg Cefepime HCl (Maxipime 1gm) 1 gm in 100 mls @ 25 mls/hr IVPB Q24H [facility]; Protocol Stop: 03/27/18 23:16 Last Admin: 03/20/18 00:44 Dose: 25 mls/hr Insulin Detemir (Levemir) 20 unit SC Q12H [facility] Last Admin: 03/20/18 05:54 Dose: 20 units Insulin Human Regular (Humulin R Low) 0 units SC ACHS [facility]; Protocol Last Admin: 03/19/18 23:30 Dose: Not Given Isosorbide Mononitrate (Imdur) 60 mg PO DAILY [facility] Last Admin: 03/19/18 10:07 Dose: 60 mg Metoprolol Succinate (Toprol Xl) 100 mg PO BRK [facility] Last Admin: 03/19/18 10:08 Dose: 100 mg Oxybutynin Chloride (Ditropan Tab) 10 mg PO DAILY [facility] Last Admin: 03/19/18 10:07 Dose: 10 mg Pregabalin (Lyrica) 50 mg PO Q12 [facility] Last Admin: 03/20/18 00:23 Dose: 50 mg Primidone (Mysoline) 50 mg PO DAILY [facility] Last Admin: 03/19/18 10:07 Dose: 50 mg Sodium Chloride ([place] Nasal [place]) 0 ml NS DAILY PRN PRN Reason: Nasal congestion Last Admin: 03/19/18 12:49 Dose: 2 spray Vitamin B Complex/Vit C/Folic Acid (Nephro-Hol[place]) 1 tab PO 0800 [facility] Last Admin: 03/19/18 10:06 Dose: 1 tab - Labs Labs: 03/19/18 06:00 03/19/18 06:00 PT 12.3 SECONDS (9.4-12.5) 03/16/18 10:20 INR 1.07 03/16/18 10:20 APTT 30.7 Seconds (25.1-36.5) 03/16/18 10:20 - Constitutional Appears: Non-toxic - Head Exam Head Exam: ATRAUMATIC, NORMOCEPHALIC - Eye Exam Eye Exam: EOMI, Normal appearance - ENT Exam ENT Exam: Mucous Membranes Moist - Neck Exam Additional comments: JVD - Respiratory Exam Respiratory Exam: Decreased Breath Sounds, NORMAL BREATHING PATTERN. absent: Accessory Muscle Use - Cardiovascular Exam Cardiovascular Exam: +S1, +S2. absent: Tachycardia - GI/Abdominal Exam GI & Abdominal Exam: Soft, Normal Bowel Sounds - Extremities Exam Extremities Exam: absent: Calf Tenderness Additional comments: 2/4 pitting edema - Back Exam Back Exam: absent: CVA tenderness (L), CVA tenderness (R) - Neurological Exam Neurological Exam: Alert, Awake, Oriented x3 - Psychiatric Exam Psychiatric exam: Normal Affect, Normal Mood - Skin Skin Exam: Dry, Intact, Normal Color, Warm Assessment and Plan (1) [id number] kidney injury Assessment & Plan: Patient is stage 3B CKD. Dose antibiotics renally, recommend dosing Cefepime 750 mg q24h, unless otherwise indicated. Status: Acute (2) Nephrotic range proteinuria Assessment & Plan: Previous urine to protein to Creatinine ratio was nephrotic in the past. Will order 24 hour urine protein with electrophoresis. Full serologic work-up for nephrotic range proteinuria ordered and pending. Status: Acute (3) Chronic kidney disease-mineral and bone disorder Assessment & Plan: 25-hydroxyvitamin D low at 27.0 Start patient of 50,000 of cholecalciferol once a week PTH pending Status: Acute (4) Anemia of chronic disease Assessment & Plan: Aranesp 0.45 mcg/kg/IV/SC given patient has anemia of CKD and hemoglobin is less than 10; however, will not given patient's blood pressure is already high and Aranesp will further increase it Status: Acute (5) Diastolic CHF Assessment & Plan: Patient on Lasix 40 mg PO daily in AM and 20 mg in evening. Metoprolol Succinate 100 mg PO daily Status: Acute (6) Hypertensive chronic kidney disease Assessment & Plan: Patient is on Lasix 40 mg and 20 in evening. Amlodipine 10. Hydralazine 25 q8h JR Imdur 60 Clonidine 0.1 TID: Consider discontinue Status: Acute
[2018-03-20] MEDS ORDERED: Ergocalciferol 50,000 Intl Units Cap PO SCH (07:00)
[2018-03-20 07:24] LABS: BASO # 0.03 K/mm3 (0.0-2.0); BASO % 0.5 % (0.0-3.0); EOS # 0.3 (0.0-0.7); EOS % 4.8 % (1.5-5.0); GRAN # 3.79 (1.4-6.5); GRAN % 59.1 % (50.0-68.0); LYMPH # 1.8 (1.2-3.4); MEAN CELL VOLUME 83.7 fl (80.0-105.0); MEAN CORPUSCULAR HEMOGLOBIN 25.1 pg (25.0-35.0); MEAN PLATELET VOLUME 10.6 fl (7.0-11.0); MONO # 0.5 (0.1-0.6); MONO % 7.6 % (1.0-6.0); RBC 3.19 10^6/uL (3.5-6.1); RED CELL DISTRIBUTION WIDTH 18.1 % (11.5-14.5); WHITE BLOOD COUNT 6.4 10^3/ul (4.5-11.0)
[2018-03-20] MEDS: Arformoterol 15 mcg/2 ml Inh Sol IH SCH ×3 (07:42→19:41)
[2018-03-20] MEDS: Budesonide 0.5 mg/2 ml Inhal Susp UD IH SCH ×3 (07:43→19:41)
[2018-03-20 07:47] LABS: ALB/GLOB RATIO 0.8 (1.1-1.8); ALBUMIN 2.9 g/dL (3.0-4.8)
--- NOTE | 2018-03-20 08:18 | PN ---
DATE: 03/19/2018 SUBJECTIVE: The patient was seen earlier this morning, in no acute distress, nontoxic. PHYSICAL EXAMINATION: VITAL SIGNS: Temperature is 98, T-max is 101, blood pressure is 222/98, respiratory rate of 20. HEENT: Unremarkable. NECK: Supple. LUNGS: Have decreased breath sounds. HEART: Normal S1, S2. ABDOMEN: Soft. LABORATORY EXAMINATION: Reveals a white count of 7.1, hemoglobin of 8, platelets of 183. Chemistries reveals BUN of 62, creatinine of 2. Urinalysis is noted. Vanco level is noted. Urine for Legionella antigen is negative. Influenza is negative. Hepatitis C is negative. RPR is negative. Blood cultures, no growth. Urine cultures with count at 50,000. ASSESSMENT AND PLAN: A 62-year-old female with super morbid obesity, body mass index of 56; diabetes; coronary artery disease; hypertension; congestive heart failure; rectal cancer, unresectable and status post chemotherapy and radiation; obstructive sleep apnea; pulmonary emboli; had vancomycin-resistant enterococcus in urine, extended spectrum beta-lactamase in the past, now is admitted with sepsis, healthcare-associated pneumonia, on Maxipime and doxycycline, day #2. We will check on the final culture results to see if . Review of orders reveals the doxycycline and cefepime were active and we will follow closely with you. Lawrence Cheek MD
[2018-03-20] MEDS: Multivitamin Vitamin B Complex (Nephro-Vite) Tab PO SCH (09:52)
[2018-03-20] MEDS: Metoprolol Succinate 100 mg XL Tab PO SCH (09:54)
[2018-03-20 11:57] LABS: ALBUMIN (PEP) 2.3 g/dL (3.8-4.8); ALPHA-1-GLOBULIN (PEP) 0.4 g/dL (0.2-0.3)
[2018-03-20] MEDS: Insulin Reg-LOW-Coverage SC SCH ×5 (12:54→21:52)
[2018-03-20] MEDS: Albuterol-Ipratrop 3 mg / 0.5 (3 ml) UD IH PRN (13:27)
--- NOTE | 2018-03-20 17:17 | PN ---
DATE: 03/20/2018 PULMONARY PROGRESS NOTE REFERRING PHYSICIAN: Florentino Lewis MD. SUBJECTIVE: She is lying in the bed, nasal cannula. Tolerated BiPAP well. No headache. No rhinitis. Breathing is better. No nausea, vomiting, diarrhea, leg pain, leg swelling. OBJECTIVE: GENERAL: In no acute distress. VITAL SIGNS: Temperature is 98, heart rate is 83, respiratory rate is 20, blood pressure 164/67. HEENT: Moist mucous membrane. Crowded airway. Mallampati score is 4. NECK: Supple. No JVD. LUNGS: Have a fair airflow. HEART: S1 and S2. ABDOMEN: Soft, nontender, nondistended. Has a colostomy bag. EXTREMITIES: There is no edema. NEUROLOGICAL: Awake and alert. Follows simple command. MEDICATIONS: She is on hydralazine 25 mg every 8 hours [id number], Brovana inhaled twice a day, clonidine 0.1 mg three times a day, Cozaar is 12.5 mg daily, Ditropan 10 mg daily, doxycycline 100 mg twice a day, vitamin D 50,000 units every 7 days, DuoNeb every 6 hours p.r.n., Ecotrin 81 mg daily, Eliquis 2.5 mg twice a day, insulin coverage, Imdur 60 mg daily, Lasix 20 mg daily, Levemir 20 units subcu every 12 hours, Lyrica 50 mg twice a day, cefepime 1 g IV every 24 hours, primidone 50 mg daily, vitamin B complex is 1 tab daily, Norvasc 10 mg daily, Pulmicort inhaled twice a day, Toprol-XL 100 mg daily, Tylenol p.r.n. basis. LABORATORY DATA: Shows hemoglobin 8, hematocrit 26.7, WBC 6.4, platelet count is 188. Sodium 141, potassium 4.5, chloride 105, bicarbonate 33, BUN 55, creatinine 1.9, glucose 136, calcium is 9, AST 25, ALT 12, alk phos is 99, albumin is 2.9, procalcitonin 0.15. Microbiology: Blood culture, urine culture and nasal cultures are unremarkable. IMPRESSION AND PLAN: Chronic respiratory failure with carbon dioxide retention, hypoxemia, probably has hypoventilation syndrome, obesity, multilobar infiltrate, history of venous thrombosis, pulmonary embolism in the past, coronary artery disease, history of colorectal cancer requiring surgery, has a colostomy, has been on radiation therapy, morbid obesity. Pulmonary point of view, doing okay. Continue bronchodilator. Keep head at 45 degrees. Continue noninvasive ventilation. Gastric prophylaxis. Anticoagulation. Infectious Diseases followup. Out of bed to chair. Fall precaution. Thank you and we will follow with you. Pamela Ayala MD
--- NOTE | 2018-03-20 22:29 | CP.PCM.PN ---
<De PazAdonis - Last Filed: 03/20/18 22:24> Subjective - Date & Time of Evaluation Date of Evaluation: 03/20/18 Time of Evaluation: 22:24 - Subjective Subjective: Adonis Herrerael PGY1 - Internal Medicine Arabic Translator - Hospital Progress Note Seen and examined at bedside this monring. She states that she used the BIPAP all night, but was not able to have a restful sleep because of it; however, she does feel that she was able to breathe better in the morning after using it all night. She feels that she is having trouble tolerating the bipap. Denies complaints of fevers/ chills, no more nose bleeds this AM. No other complaints offered on exam this AM. Objective - Vital Signs/Intake and Output Vital Signs (last 24 hours): Temp Pulse Resp BP Pulse Ox 98.7 F 65 20 153/69 H 95 03/20/18 14:00 03/20/18 21:51 03/20/18 14:00 03/20/18 21:51 03/20/18 14:00 Intake and Output: 03/20/18 03/21/18 18:59 06:59 Intake Total 240 480 Output Total 550 Balance 240 -70 - Medications Medications: Current Medications Acetaminophen (Tylenol 325mg Tab) 650 mg PO Q6H PRN PRN Reason: Pain, Mild (1-3) Last Admin: 03/19/18 13:02 Dose: 650 mg Albuterol/Ipratropium (Duoneb 3 Mg/0.5 Mg (3 Ml) Ud) 3 ml IH [id number] PRN PRN Reason: Wheezing Last Admin: 03/20/18 13:27 Dose: 3 ml Amlodipine Besylate (Norvasc) 10 mg PO DAILY [facility] Last Admin: 03/20/18 09:53 Dose: 10 mg Apixaban (Eliquis) 2.5 mg PO BID [facility]; Protocol Last Admin: 03/20/18 18:01 Dose: 2.5 mg Arformoterol Tartrate (Brovana) 15 mcg IH [id number] Last Admin: 03/20/18 19:41 Dose: 15 mcg Aspirin (Ecotrin) 81 mg PO DAILY [facility] Last Admin: 03/20/18 09:52 Dose: 81 mg Budesonide (Pulmicort Respules) 0.5 mg IH [id number] [facility] Last Admin: 03/20/18 19:41 Dose: 0.5 mg Clonidine HCl (Catapres) 0.1 mg PO TID [facility] Last Admin: 03/20/18 18:02 Dose: 0.1 mg Doxycycline Hyclate (Doryx) 100 mg PO Q12 JR; Protocol Stop: 03/28/18 10:01 Last Admin: 03/20/18 21:51 Dose: 100 mg Ergocalciferol (Drisdol 50,000 Intl Units Cap) 1 cap PO Q7D [facility] Last Admin: 03/20/18 09:57 Dose: 1 cap Furosemide (Lasix) 40 mg PO DAILY [facility] Last Admin: 03/20/18 09:53 Dose: 40 mg Furosemide (Lasix) 20 mg PO DAILY@1800 JR Last Admin: 03/20/18 18:01 Dose: 20 mg Hydralazine HCl (Apresoline) 25 mg PO Q8H [facility] Last Admin: 03/20/18 21:51 Dose: 25 mg Cefepime HCl (Maxipime 1gm) 1 gm in 100 mls @ 25 mls/hr IVPB Q24H [facility]; Protocol Stop: 03/27/18 23:16 Last Admin: 03/20/18 00:44 Dose: 25 mls/hr Insulin Detemir (Levemir) 20 unit SC Q12H [facility] Last Admin: 03/20/18 16:37 Dose: Not Given Insulin Human Regular (Humulin R Low) 0 units SC ACHS [facility]; Protocol Last Admin: 03/20/18 21:52 Dose: Not Given Isosorbide Mononitrate (Imdur) 60 mg PO DAILY [facility] Last Admin: 03/20/18 09:53 Dose: 60 mg Losartan Potassium (Cozaar) 12.5 mg PO DAILY [facility] Last Admin: 03/20/18 12:56 Dose: 12.5 mg Metoprolol Succinate (Toprol Xl) 100 mg PO BRK [facility] Last Admin: 03/20/18 09:54 Dose: 100 mg Oxybutynin Chloride (Ditropan Tab) 10 mg PO DAILY [facility] Last Admin: 03/20/18 09:52 Dose: 10 mg Pregabalin (Lyrica) 50 mg PO Q12 [facility] Last Admin: 03/20/18 21:52 Dose: 50 mg Primidone (Mysoline) 50 mg PO DAILY [facility] Last Admin: 03/20/18 09:52 Dose: 50 mg Sodium Chloride ([place] Nasal [place]) 0 ml NS DAILY PRN PRN Reason: Nasal congestion Last Admin: 03/19/18 12:49 Dose: 2 spray Vitamin B Complex/Vit C/Folic Acid (Nephro-Hol[place]) 1 tab PO 0800 [facility] Last Admin: 03/20/18 09:52 Dose: 1 tab - Labs Labs: 03/20/18 07:00 03/20/18 07:00 PT 12.3 SECONDS (9.4-12.5) 03/16/18 10:20 INR 1.07 03/16/18 10:20 APTT 30.7 Seconds (25.1-36.5) 03/16/18 10:20 Physical Exam - Constitutional Appears: Somnolent in the morning; however much less fatigued in afternoon. Presentation unchanged from day prior. - Head Exam Head Exam: ATRAUMATIC, NORMOCEPHALIC - Eye Exam Eye Exam: EOMI, PERRL. absent: Scleral icterus - ENT Exam ENT Exam: Mucous Membranes Moist, No further bleeding in R nasal passage - Respiratory Exam Respiratory Exam: Tolerating bipap well; Bibasilar crackles - Cardiovascular Exam Cardiovascular Exam: RRR, +S1, +S2. absent: Systolic Murmur - GI/Abdominal Exam GI & Abdominal Exam: Normal Bowel Sounds, Soft. absent: Tenderness Additional comments: Colostomy present; draining appropriately - Extremities Exam Additional comments: 4+ Pitting edema BL lower extremities Extremities warm; Pulses difficult to palpate - Neurological Exam Neurological exam: Alert, CN II-XII Intact, Oriented x3 Additional comments: LUE and LLE strength relatively weaker than than RUE/ RLE ; UE display 5/5 gross strength bilaterally Patient shows no tremors - Psychiatric Exam Psychiatric exam: Comfortable, normal affect, normal mood - Skin Skin Exam: Dry, Intact, Warm Assessment and Plan - Assessment and Plan (Free Text) Assessment: Assessment: 62F w/ significant comorbid conditions previously admitted to [facility] for acute on chronic respiratory failure 2/2 PNA + CHF presented to [facility] ED on w/ CC of [place], Lethargy, and fatigue x2 weeks. Patient was subsequently admitted for treatment of Hypercapnic respiratory Acidosis 2/2 HCAP vs decompensated COPD. Patient is still on bipap at this time; stable presentation from day prior. Patient no longer voices c/o F/Chills as she had prior aft ladi. We are also continuing to work up her SHELBI at this time and manage her blood pressures. Problem List: SHELBI on CKD - Baseline Cr 1.8 Previous UAs point towards gross proteinuria BUN/Cr 68/2.5 on admission this morning 55/1.9 - improving Cw Lasix 40PO QD, Lasix 20PO @ 1800 as per Nephro 24Hour urine collection; 1507 total protein; Avoid nephrotoxic agents Urine eosinophil negative Hypercapnic Respiratory Acidosis Patient was to follow up w/ sleep study/pulm outpt however has not done so; reports she has not gotten bipap outpt Adm ABG -7.30/64/106/31.5 ; Most recent - 7.36/53//81 Pulmonology consulted, appreciate recommendations HCAP Previously admitted to inpatient as well as rehab within last three months; previous RLL infiltrate CXR - Diffuse R sided pulm infiltrate; unchanged from prior Will closely monitor; possible need for CT Chest tomorrow if unstable Lactate wnl S/p 1L bolus CW Doxycycline + Cefepime as per ID Bcx negative Repeat BCx negative Ucx pending Procal negative ID Consulted, appreciate reccs HTN Norvasc 10 daily Imdur 60 daily Clonidine 0.1 po TID Hydralazine 25 Q8 Hx COPD Duonebs Q6 PRN Brovana 15mcg Q12 Budesonide 0.5mg Q12 Started Chest PT Hx CHF Echo 08/2017 - EF 53% w/ Grade II diastolic dysfunction Pro BNP [address] Holding Metolazone 2.5 QD Low salt diet Hx DVT/PE Eliquis 2.5 Daily Hx DM w/ Neuropathy Sugars well controlled Continue: Levemir 20 Q12 ISS Low ACHS Lyrica 200 QD UTI Symptomatic; Leuk Esterase + DC Cipro UCx contaminated Hx tremors Primidone 50 QD Hx HLD Zocor 40 QD Dispo: Continued inpatient management of Hypercapnic Respiratory Failure and other comorbidities; Continued medical management at this time. In Summary: Ms. Guevara has chronic respiratory failure due to severe COPD. Patient has been having trouble tolerating hte BiPAP and complains of symptoms of parallel to breath stacking. The plan moving forward is to discontinue the use of the BiPAP as it has proven insufficient and order Non -Invasive ventilation to target volume control and reduce the elevated PCO2 levels that the patient has been experience on Bipap. Without noninvasive ventilation the patient might endure additional hospital admissions or even a life threatening event. The plan has been discussed w/ the patient. Patient is to follow up w/ PMD Dr. Florian once discharged DIET: Heart healthy diet low carb ; 2gm Na GI: Protonix 40 IVp DVT: Eliquis as above + SCD Code: FULL CODE Patient seen, examined, and discussed w/ attending physician Dr. Debbie De Paz DO PGY1 - Internal Medicine Arabic Translator - Pager [phone] <Florentino Lewis - Last Filed: 03/21/18 14:24> Objective - Vital Signs/Intake and Output Vital Signs (last 24 hours): Temp Pulse Resp BP Pulse Ox 98.4 F 80 20 199/81 H 97 03/21/18 06:00 03/21/18 09:07 03/21/18 06:00 03/21/18 09:07 03/21/18 06:00 Intake and Output: 03/21/18 03/21/18 06:59 18:59 Intake Total 480 Output Total 550 Balance -70 - Medications Medications: Current Medications Acetaminophen (Tylenol 325mg Tab) 650 mg PO Q6H PRN PRN Reason: Pain, Mild (1-3) Last Admin: 03/21/18 10:53 Dose: 650 mg Albuterol/Ipratropium (Duoneb 3 Mg/0.5 Mg (3 Ml) Ud) 3 ml IH [id number] PRN PRN Reason: Wheezing Last Admin: 03/21/18 13:16 Dose: 3 ml Amlodipine Besylate (Norvasc) 10 mg PO DAILY [facility] Last Admin: 03/21/18 09:06 Dose: 10 mg Apixaban (Eliquis) 2.5 mg PO BID [facility]; Protocol Last Admin: 03/21/18 09:05 Dose: 2.5 mg Arformoterol Tartrate (Brovana) 15 mcg IH [id number] Last Admin: 03/21/18 07:32 Dose: 15 mcg Aspirin (Ecotrin) 81 mg PO DAILY [facility] Last Admin: 03/21/18 09:06 Dose: 81 mg Budesonide (Pulmicort Respules) 0.5 mg IH [id number] [facility] Last Admin: 03/21/18 07:32 Dose: 0.5 mg Clonidine HCl (Catapres) 0.1 mg PO Q8H JR Doxycycline Hyclate (Doryx) 100 mg PO Q12 RJ; Protocol Stop: 03/28/18 10:01 Last Admin: 03/21/18 09:06 Dose: 100 mg Ergocalciferol (Drisdol 50,000 Intl Units Cap) 1 cap PO Q7D [facility] Last Admin: 03/20/18 09:57 Dose: 1 cap Furosemide (Lasix) 40 mg PO DAILY [facility] Last Admin: 03/21/18 09:06 Dose: 40 mg Furosemide (Lasix) 20 mg PO DAILY@1800 JR Last Admin: 03/20/18 18:01 Dose: 20 mg Hydralazine HCl (Apresoline) 25 mg PO Q8H JR Cefepime HCl (Maxipime 1gm) 1 gm in 100 mls @ 25 mls/hr IVPB Q24H [facility]; Protocol Stop: 03/27/18 23:16 Last Admin: 03/20/18 23:30 Dose: 25 mls/hr Insulin Detemir (Levemir) 20 unit SC Q12H [facility] Last Admin: 03/21/18 06:44 Dose: 20 units Insulin Human Regular (Humulin R Low) 0 units SC ACHS [facility]; Protocol Last Admin: 03/21/18 09:07 Dose: Not Given Isosorbide Mononitrate (Imdur) 60 mg PO DAILY [facility] Last Admin: 03/21/18 09:06 Dose: 60 mg Losartan Potassium (Cozaar) 25 mg PO DAILY [facility] Last Admin: 03/21/18 09:07 Dose: 25 mg Metoprolol Succinate (Toprol Xl) 100 mg PO BRK [facility] Last Admin: 03/21/18 08:14 Dose: 100 mg Oxybutynin Chloride (Ditropan Tab) 10 mg PO DAILY [facility] Last Admin: 03/21/18 09:06 Dose: 10 mg Pregabalin (Lyrica) 50 mg PO Q12 [facility] Last Admin: 03/21/18 09:06 Dose: 50 mg Primidone (Mysoline) 50 mg PO DAILY [facility] Last Admin: 03/21/18 09:06 Dose: 50 mg Sodium Chloride ([place] Nasal [place]) 0 ml NS DAILY PRN PRN Reason: Nasal congestion Last Admin: 03/19/18 12:49 Dose: 2 spray Vitamin B Complex/Vit C/Folic Acid (Nephro-[place]) 1 tab PO 0800 [facility] Last Admin: 03/21/18 08:14 Dose: 1 tab - Labs Labs: 03/21/18 07:00 03/21/18 07:00 PT 12.3 SECONDS (9.4-12.5) 03/16/18 10:20 INR 1.07 03/16/18 10:20 APTT 30.7 Seconds (25.1-36.5) 03/16/18 10:20 Attending/Attestation - Attestation I have personally seen and examined this patient.: Yes I have fully participated in the care of the patient.: Yes I have reviewed all pertinent clinical information, including history, physical exam and plan: Yes Notes (Text): 03/21/18 14:13 Attending note; Patient seen and examined with the resident. Patient is alert and awake. Was using BiPAP at night. Currently on oxygen nasal cannula. Denies any fevers, chills. Denies any nosebleeds. fever resolved. Not in any acute distress. Patient is a 62 year old female with past medical history of hypertension, diabetes, CAD, COPD, DVT/PE on eliquis, CKD, colorectal cancer s/p resection and colostomy, morbid obesity and chronic back pain is admitted with acute shortness of breath. 1. Hypercapnic respiratory failure. Secondary to sleep apnea and morbid obesity. Started on BiPAP during night. Continue oxygen during daytime. Continue DuoNeb treatment. Case discussed with cuff turner Dr. Ayala in detail. Case discussed with manager case for outpatient BiPAP/CPAP arrangement. nasal saline/humidified oxygen to avoid nosebleeds. 2. Right sided pneumonia and sepsis. ID evaluation appreciated. Patient is on doxycycline and cefepime. Blood culture is negative. Urine cultures negative. MRSA screen negative. 3. Hypertension; Fluctuating bp. Medications increased .continue Norvasc, Imdur, hydralazine and clonidine. 4. Acute on chronic kidney disease; creatinine is improving .continue Lasix . Nephrology evaluation appreciated. Needs close outpatient follow-up. 5.Anemia; chronic and stable .hemoglobin is 8.2 . 6. History of DVT and PE; Patient is on eliquis. Continue to monitor CBC closel y. 7. History of colostomy; monitor output. Paperwork completed for outpatient noninvasive ventilation arrangement. Case discussed with manager case in detail. PT evaluation appreciated. Possible rehabilitation needed. Patient has multiple medical issues. Prognosis is guarded. Upon discharge patient will follow-up with PMD Dr. Florian.
--- NOTE | 2018-03-21 04:27 | PN ---
DATE: 03/20/2018 SUBJECTIVE: The patient is in bed, in no acute distress, nontoxic. PHYSICAL EXAMINATION: VITAL SIGNS: On exam, temperature is 98, blood pressure is 150/60, respiratory rate 20, heart rate of 65. HEENT: Examination of HEENT is unremarkable. NECK: Supple. LUNGS: Have decreased breath sounds. HEART: Normal S1, S2. ABDOMEN: Soft, nontender. LABORATORY DATA: Laboratory examination reveals a white count of 6.4, hemoglobin of 8, platelets of 188, creatinine is 1.9. Urinalysis is noted. Toxicology is noted. Vanco trough was 15.9. Immunology is noted and RPR is negative and microbiology reveals the blood cultures, no growth. The patient's procalcitonin is 0.15, another one was 0.10. 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 The blood cultures are negative. Nasal methicillin-sensitive Staphylococcus aureus screen is negative. Urine cultures are negative and on cefepime day #3 and doxycycline. We will be discontinuing the cefepime in next 24 hours. Lawrence Cheek MD
[2018-03-21 04:56] LABS: URINE 24 HOUR TOTAL PROTEIN 2415 mg/24HR (42-225); URINE COLLECTION TIME 24 HOURS; URINE TOTAL VOLUME 2100 mL (800-1400)
[2018-03-21] MEDS: Insulin Detemir 100 units/ml Vial (Levemir) SC SCH ×2 (06:44→17:29)
[2018-03-21 07:21] LABS: BASO # 0.05 K/mm3 (0.0-2.0); BASO % 0.9 % (0.0-3.0); EOS # 0.4 (0.0-0.7); EOS % 6.7 % (1.5-5.0); GRAN # 3.04 (1.4-6.5); HEMOGLOBIN 8.2 g/dL (12.0-16.0); LYMPH # 1.8 (1.2-3.4); LYMPH % 31.6 % (22.0-35.0); MEAN CORPUSCULAR HEMOGLOBIN 25.5 pg (25.0-35.0); MEAN PLATELET VOLUME 10.7 fl (7.0-11.0); MONO # 0.3 (0.1-0.6); MONO % 5.8 % (1.0-6.0); RBC 3.21 10^6/uL (3.5-6.1); WHITE BLOOD COUNT 5.5 10^3/ul (4.5-11.0)
[2018-03-21] MEDS: Arformoterol 15 mcg/2 ml Inh Sol IH SCH ×2 (07:32→19:54)
[2018-03-21] MEDS: Budesonide 0.5 mg/2 ml Inhal Susp UD IH SCH ×2 (07:32→19:54)
[2018-03-21 08:03] LABS: ALB/GLOB RATIO 0.8 (1.1-1.8); ALBUMIN 2.9 g/dL (3.0-4.8); CALCIUM 8.6 mg/dL (8.4-10.5)
[2018-03-21] MEDS: Metoprolol Succinate 100 mg XL Tab PO SCH (08:14)
[2018-03-21] MEDS: Multivitamin Vitamin B Complex (Nephro-Vite) Tab PO SCH (08:14)
[2018-03-21] MEDS: Insulin Reg-LOW-Coverage SC SCH ×4 (09:07→22:30)
--- NOTE | 2018-03-21 10:32 | CP.PCM.PN ---
Subjective - Date & Time of Evaluation Date of Evaluation: 03/21/18 Time of Evaluation: 07:40 - Subjective Subjective: Sergio Mari DO, PGY-2: Nephrology Progress Note for Dr. Swift Patient seen and examined at bedside. Patient reports cough but inabilty to produce phlegm. Urine collection studies noted. She remain in bed. Chest physiotherapy discussed with patient, nurse, and respiratory therapist. Physical therapy had the patient out of bed today. Induced sputum collection also discussed with Respitory Therapist. Objective - Vital Signs/Intake and Output Vital Signs (last 24 hours): Temp Pulse Resp BP Pulse Ox 98.4 F 80 20 199/81 H 97 03/21/18 06:00 03/21/18 09:07 03/21/18 06:00 03/21/18 09:07 03/21/18 06:00 Intake and Output: 03/21/18 03/21/18 06:59 18:59 Intake Total 480 Output Total 550 Balance -70 - Medications Medications: Current Medications Acetaminophen (Tylenol 325mg Tab) 650 mg PO Q6H PRN PRN Reason: Pain, Mild (1-3) Last Admin: 03/19/18 13:02 Dose: 650 mg Albuterol/Ipratropium (Duoneb 3 Mg/0.5 Mg (3 Ml) Ud) 3 ml IH [id number] PRN PRN Reason: Wheezing Last Admin: 03/20/18 13:27 Dose: 3 ml Amlodipine Besylate (Norvasc) 10 mg PO DAILY [facility] Last Admin: 03/21/18 09:06 Dose: 10 mg Apixaban (Eliquis) 2.5 mg PO BID [facility]; Protocol Last Admin: 03/21/18 09:05 Dose: 2.5 mg Arformoterol Tartrate (Brovana) 15 mcg IH [id number] [facility] Last Admin: 03/21/18 07:32 Dose: 15 mcg Aspirin (Ecotrin) 81 mg PO DAILY [facility] Last Admin: 03/21/18 09:06 Dose: 81 mg Budesonide (Pulmicort Respules) 0.5 mg IH [id number] [facility] Last Admin: 03/21/18 07:32 Dose: 0.5 mg Doxycycline Hyclate (Doryx) 100 mg PO Q12 [facility]; Protocol Stop: 03/28/18 10:01 Last Admin: 03/21/18 09:06 Dose: 100 mg Ergocalciferol (Drisdol 50,000 Intl Units Cap) 1 cap PO Q7D [facility] Last Admin: 03/20/18 09:57 Dose: 1 cap Furosemide (Lasix) 40 mg PO DAILY [facility] Last Admin: 03/21/18 09:06 Dose: 40 mg Furosemide (Lasix) 20 mg PO DAILY@1800 JR Last Admin: 03/20/18 18:01 Dose: 20 mg Hydralazine HCl (Apresoline) 25 mg PO Q8H [facility] Last Admin: 03/21/18 06:29 Dose: 25 mg Cefepime HCl (Maxipime 1gm) 1 gm in 100 mls @ 25 mls/hr IVPB Q24H [facility]; Protocol Stop: 03/27/18 23:16 Last Admin: 03/20/18 23:30 Dose: 25 mls/hr Insulin Detemir (Levemir) 20 unit SC Q12H [facility] Last Admin: 03/21/18 06:44 Dose: 20 units Insulin Human Regular (Humulin R Low) 0 units SC ACHS [facility]; Protocol Last Admin: 03/21/18 09:07 Dose: Not Given Isosorbide Mononitrate (Imdur) 60 mg PO DAILY [facility] Last Admin: 03/21/18 09:06 Dose: 60 mg Losartan Potassium (Cozaar) 25 mg PO DAILY [facility] Last Admin: 03/21/18 09:07 Dose: 25 mg Metoprolol Succinate (Toprol Xl) 100 mg PO BRK [facility] Last Admin: 03/21/18 08:14 Dose: 100 mg Oxybutynin Chloride (Ditropan Tab) 10 mg PO DAILY [facility] Last Admin: 03/21/18 09:06 Dose: 10 mg Pregabalin (Lyrica) 50 mg PO Q12 [facility] Last Admin: 03/21/18 09:06 Dose: 50 mg Primidone (Mysoline) 50 mg PO DAILY [facility] Last Admin: 03/21/18 09:06 Dose: 50 mg Sodium Chloride ([place] Nasal [place]) 0 ml NS DAILY PRN PRN Reason: Nasal congestion Last Admin: 03/19/18 12:49 Dose: 2 spray Vitamin B Complex/Vit C/Folic Acid (Nephro-[place]) 1 tab PO 0800 [facility] Last Admin: 03/21/18 08:14 Dose: 1 tab - Labs Labs: 03/21/18 07:00 03/21/18 07:00 PT 12.3 SECONDS (9.4-12.5) 03/16/18 10:20 INR 1.07 03/16/18 10:20 APTT 30.7 Seconds (25.1-36.5) 03/16/18 10:20 - Constitutional Appears: Non-toxic, No Acute Distress - Head Exam Head Exam: ATRAUMATIC, NORMOCEPHALIC - Eye Exam Eye Exam: EOMI, Normal appearance - ENT Exam ENT Exam: Mucous Membranes Moist - Neck Exam Additional comments: JVD noted - Respiratory Exam Respiratory Exam: Decreased Breath Sounds (right greater than left), NORMAL BREATHING PATTERN - GI/Abdominal Exam GI & Abdominal Exam: Soft. absent: Tenderness - Extremities Exam Additional comments: 2/4 pitting edema - Neurological Exam Neurological Exam: Alert, Awake, Oriented x3 - Psychiatric Exam Psychiatric exam: Normal Affect, Normal Mood - Skin Skin Exam: Dry, Intact, Normal Color, Warm Assessment and Plan (1) [id number] kidney injury Assessment & Plan: Patient is stage 3B CKD. Dose antibiotics renally, recommend dosing Cefepime 750 mg q24h, unless otherwise indicated. Creatinine today is 1.7 Status: Acute (2) Chronic kidney disease-mineral and bone disorder Assessment & Plan: 25-hydroxyvitamin D low at 27.0 Start patient of 50,000 of cholecalciferol once a week PTH elevated in the setting of a normal Ca indicates secondary hyperparathyroidism Status: Acute (3) Anemia of chronic disease Assessment & Plan: Aranesp 0.45 mcg/kg/IV/SC given patient has anemia of CKD and hemoglobin is less than 10; however, will not given patient's blood pressure is already high and Aranesp will further increase it Status: Acute (4) Diastolic CHF Assessment & Plan: Patient on Lasix 20 mg q12h Metoprolol Succinate 100 mg PO daily Status: Acute (5) Hypertensive chronic kidney disease Assessment & Plan: Lasix 20 mg q12h Amlodipine 10 Hydralazine 25 q8h JR Imdur 60 Clonidine 0.1 Q8H Losartan 25 mg Status: Acute (6) Proteinuria Assessment & Plan: 24 hour urine shows sub-nephrotic range proteinuria. Complete serologic work up is pending. Etiology is likely secondary to DM II and uncontrolled hypertension. Status: Acute
[2018-03-21] MEDS: Albuterol-Ipratrop 3 mg / 0.5 (3 ml) UD IH PRN ×2 (13:16→19:54)
--- NOTE | 2018-03-21 13:47 | PQF ---
PROVIDER RESPONSE TEXT: patient has sepsis from pneumonia. Patient has fevers and chills and pneumonia on chest x-ray. REVIEWER QUERY TEXT: Rule Out Sepsis Clarification Rule out Sepsis is documented in the Medical Record. Please clarify whether: -- Patient has sepsis - Please document confirmed, suspected or probable causative organism - Please document confirmed, suspected or probable localized infection - Please clarify if sepsis is related to a device - Please clarify if sepsis was present on admission -- Sepsis was ruled out (include corresponding diagnosis for patient?s clinical picture and treatment ) -- Patient had sepsis which is resolved -- Other, please specify The patient's Clinical Indicators include: ID cardiology consultants noted that patient had sepsis with pneumonia when admitted. CXR did show infiltrate un changed from previous admission. Noted to have fever 101 once, now afebrile. Leukocytosis on admission but now normal. Treated with antibiotics. Please document if you concur with this diagnosis, POA, ruled out this admission? Query created by: Pushpa Rubio on 03/21/2018 11:12 AM Electronically signed by: Florentino Lewis MD 03/21/2018 1:45 PM
[2018-03-21 17:16] VITALS: TEMP 98.6
--- NOTE | 2018-03-21 20:24 | CP.PCM.PN ---
<Adonis De Paz - Last Filed: 03/21/18 20:35> Subjective - Date & Time of Evaluation Date of Evaluation: 03/21/18 Time of Evaluation: 20:15 - Subjective Subjective: Adonis De Paz DO PGY1 - Internal Medicine [facility] - Hospital Progress Note No acute events overnight Stable Objective - Vital Signs/Intake and Output Vital Signs (last 24 hours): Temp Pulse Resp BP Pulse Ox 98.6 F 75 20 185/72 H 93 L 03/21/18 14:00 03/21/18 18:46 03/21/18 14:00 03/21/18 18:46 03/21/18 14:00 Intake and Output: 03/21/18 03/22/18 18:59 06:59 Intake Total 480 480 Output Total 500 Balance -20 480 - Medications Medications: Current Medications Acetaminophen (Tylenol 325mg Tab) 650 mg PO Q6H PRN PRN Reason: Pain, Mild (1-3) Last Admin: 03/21/18 10:53 Dose: 650 mg Albuterol/Ipratropium (Duoneb 3 Mg/0.5 Mg (3 Ml) Ud) 3 ml IH [id number] PRN PRN Reason: Wheezing Last Admin: 03/21/18 19:54 Dose: 3 ml Amlodipine Besylate (Norvasc) 10 mg PO DAILY [facility] Last Admin: 03/21/18 09:06 Dose: 10 mg Apixaban (Eliquis) 2.5 mg PO BID [facility]; Protocol Last Admin: 03/21/18 17:27 Dose: 2.5 mg Arformoterol Tartrate (Brovana) 15 mcg IH [id number] [facility] Last Admin: 03/21/18 19:54 Dose: 15 mcg Aspirin (Ecotrin) 81 mg PO DAILY [facility] Last Admin: 03/21/18 09:06 Dose: 81 mg Budesonide (Pulmicort Respules) 0.5 mg IH [id number] [facility] Last Admin: 03/21/18 19:54 Dose: 0.5 mg Clonidine HCl (Catapres) 0.1 mg PO Q8H [facility] Last Admin: 03/21/18 16:07 Dose: 0.1 mg Doxycycline Hyclate (Doryx) 100 mg PO Q12 [facility]; Protocol Stop: 03/28/18 10:01 Last Admin: 03/21/18 09:06 Dose: 100 mg Ergocalciferol (Drisdol 50,000 Intl Units Cap) 1 cap PO Q7D [facility] Last Admin: 03/20/18 09:57 Dose: 1 cap Furosemide (Lasix) 20 mg IVP Q12 [facility] Last Admin: 03/21/18 17:27 Dose: 20 mg Hydralazine HCl (Apresoline) 25 mg PO Q8H JR Last Admin: 03/21/18 16:07 Dose: 25 mg Cefepime HCl (Maxipime 1gm) 1 gm in 100 mls @ 25 mls/hr IVPB Q24H [facility]; Protocol Stop: 03/27/18 23:16 Last Admin: 03/20/18 23:30 Dose: 25 mls/hr Insulin Detemir (Levemir) 20 unit SC Q12H [facility] Last Admin: 03/21/18 17:29 Dose: Not Given Insulin Human Regular (Humulin R Low) 0 units SC ACHS [facility]; Protocol Last Admin: 03/21/18 17:28 Dose: 1 unit Isosorbide Mononitrate (Imdur) 60 mg PO DAILY [facility] Last Admin: 03/21/18 09:06 Dose: 60 mg Losartan Potassium (Cozaar) 50 mg PO DAILY [facility] Metoprolol Succinate (Toprol Xl) 100 mg PO BRK [facility] Last Admin: 03/21/18 08:14 Dose: 100 mg Oxybutynin Chloride (Ditropan Tab) 10 mg PO DAILY [facility] Last Admin: 03/21/18 09:06 Dose: 10 mg Pregabalin (Lyrica) 50 mg PO Q12 [facility] Last Admin: 03/21/18 09:06 Dose: 50 mg Primidone (Mysoline) 50 mg PO DAILY [facility] Last Admin: 03/21/18 09:06 Dose: 50 mg Sodium Chloride ([place] Nasal [place]) 0 ml NS DAILY PRN PRN Reason: Nasal congestion Last Admin: 03/19/18 12:49 Dose: 2 spray Vitamin B Complex/Vit C/Folic Acid (Nephro-[place]) 1 tab PO 0800 [facility] Last Admin: 03/21/18 08:14 Dose: 1 tab - Labs Labs: 03/21/18 07:00 03/21/18 07:00 PT 12.3 SECONDS (9.4-12.5) 03/16/18 10:20 INR 1.07 03/16/18 10:20 APTT 30.7 Seconds (25.1-36.5) 03/16/18 10:20 Physical Exam - Constitutional Appears: Somnolent in the morning; however much less fatigued in afternoon. Presentation unchanged from day prior. - Head Exam Head Exam: ATRAUMATIC, NORMOCEPHALIC - Eye Exam Eye Exam: EOMI, PERRL. absent: Scleral icterus - ENT Exam ENT Exam: Mucous Membranes Moist, No further bleeding in R nasal passage - Respiratory Exam Respiratory Exam: Tolerating bipap well; Bibasilar crackles - Cardiovascular Exam Cardiovascular Exam: RRR, +S1, +S2. absent: Systolic Murmur - GI/Abdominal Exam GI & Abdominal Exam: Normal Bowel Sounds, Soft. absent: Tenderness Additional comments: Colostomy present; draining appropriately; green/brown stool - Extremities Exam Additional comments: 4+ Pitting edema BL lower extremities Extremities warm; Pulses difficult to palpate - Neurological Exam Neurological exam: Alert, CN II-XII Intact, Oriented x3 Additional comments: LUE and LLE strength relatively weaker than than RUE/ RLE ; UE display 5/5 gross strength bilaterally Patient shows no tremors - Psychiatric Exam Psychiatric exam: Comfortable, normal affect, normal mood - Skin Skin Exam: Dry, Intact, Warm Assessment and Plan - Assessment and Plan (Free Text) Assessment: Assessment: 62F w/ significant comorbid conditions previously admitted to [facility] for acute on chronic respiratory failure 2/2 PNA + CHF presented to [facility] ED on w/ CC of [place], Lethargy, and fatigue x2 weeks. Patient was subsequently admitted for treatment of Hypercapnic respiratory Acidosis 2/2 HCAP vs decompensated COPD. Patient is still on bipap at this time; stable presentation from day prior. No systemic signs/ symptoms of infection at this time. We are going to continue to optimize her medically. Problem List: SHELBI on CKD - Baseline Cr 1.8 Stage 3B CKD SHELBI is improving 24H Protein <3500 less likely nephrotic in nature Lasix is now 20mg Q12 Cozaar 40 QD Avoid nephrotoxic agents Urine eosinophil negative Hypercapnic Respiratory Acidosis - improved Patient was to follow up w/ sleep study/pulm outpt however has not done so; reports she has not gotten bipap outpt Adm ABG -7.30/64/106/31.5 ; Most recent - 7.36/// Pulmonology consulted, appreciate recommendations HCAP - improving Previously admitted to inpatient as well as rehab within last three months; previous RLL infiltrate CXR - Diffuse R sided pulm infiltrate; unchanged from prior Will closely monitor; possible need for CT Chest tomorrow if unstable Lactate wnl S/p 1L bolus CW Doxycycline + Cefepime as per ID - will DC within 24 H Bcx negative Repeat BCx negative Ucx negative Procal negative ID Consulted, appreciate reccs HTN Norvasc 10 daily Imdur 60 daily Clonidine 0.1 po TID Hydralazine 25 Q8 Hx COPD Duonebs Q6 PRN Brovana 15mcg Q12 Budesonide 0.5mg Q12 Started Chest PT Hx CHF Echo 08/2017 - EF 53% w/ Grade II diastolic dysfunction Pro BNP 3400 Holding Metolazone 2.5 QD Low salt diet Hx DVT/PE Eliquis 2.5 Daily Hx DM w/ Neuropathy Sugars well controlled Continue: Levemir 20 Q12 ISS Low ACHS Lyrica 200 QD UTI Symptomatic; Leuk Esterase + DC Cipro UCx contaminated Hx tremors Primidone 50 QD Hx HLD Zocor 40 QD Dispo: Continued inpatient management of Hypercapnic Respiratory Failure and other comorbidities; Continued medical management at this time. In Summary: Ms. Guevara has chronic respiratory failure due to severe COPD. Patient has been having trouble tolerating hte BiPAP and complains of symptoms of parallel to breath stacking. The plan moving forward is to discontinue the use of the BiPAP as it has proven insufficient and order Non -Invasive ventilation to target volume control and reduce the elevated PCO2 levels that the patient has been experience on Bipap. Without noninvasive ventilation the patient might endure additional hospital admissions or even a life threatening event. The plan has been discussed w/ the patient. Patient is to follow up w/ PMD Dr. Florian once discharged DIET: Heart healthy diet low carb ; 2gm Na GI: Protonix 40 IVp DVT: Eliquis as above + SCD Code: FULL CODE Patient seen, examined, and discussed w/ attending physician Dr. Debbie De Paz DO PGY1 - Internal Medicine [facility] - Pager [phone] <Florentino Lewis - Last Filed: 03/23/18 13:03> Objective - Vital Signs/Intake and Output Vital Signs (last 24 hours): Temp Pulse Resp BP Pulse Ox 98.6 F 61 22 160/63 H 99 03/22/18 06:00 03/22/18 06:16 03/22/18 06:00 03/22/18 14:46 03/22/18 06:00 - Labs Labs: 03/22/18 06:30 03/22/18 06:30 PT 12.3 SECONDS (9.4-12.5) 03/16/18 10:20 INR 1.07 03/16/18 10:20 APTT 30.7 Seconds (25.1-36.5) 03/16/18 10:20 Attending/Attestation - Attestation I have personally seen and examined this patient.: Yes I have fully participated in the care of the patient.: Yes I have reviewed all pertinent clinical information, including history, physical exam and plan: Yes Notes (Text): 03/23/18 13:01 Attending note; Patient seen and examined with the resident. Patient is alert and awake. Was using BiPAP at night. Currently on oxygen nasal cannula. Patient is a 62 year old female with past medical history of hypertension, diabetes, CAD, COPD, DVT/PE on eliquis, CKD, colorectal cancer s/p resection and colostomy, morbid obesity and chronic back pain is admitted with acute shortness of breath. 1. Hypercapnic respiratory failure. Secondary to sleep apnea and morbid obesity. Started on BiPAP during night. Continue oxygen during daytime. Continue DuoNeb treatment. Case discussed with senior pricing analyst Dr. Ayala in detail. Case discussed with sample case porter for outpatient BiPAP/CPAP arrangement. forms completed. nasal saline/humidified oxygen to avoid nosebleeds. 2. Right sided pneumonia and sepsis. ID evaluation appreciated. Patient is on doxycycline and cefepime. Blood culture is negative. Urine cultures negative. MRSA screen negative. 3. Hypertension; BP is elevated. Medications increased .continue Norvasc, Imdur,lasix, hydralazine and clonidine. 4. Acute on chronic kidney disease; creatinine is improving. Nephrology eval uation appreciated. Needs close outpatient follow-up. 5.Anemia; chronic and stable .hemoglobin is 8.2 . 6. History of DVT and PE; Patient is on eliquis. Continue to monitor CBC closely. 7. History of colostomy; monitor output. PT evaluation appreciated. Subacute rehabilitation recommended. Case discussed with sample case porter in detail for discharge planning. Patient has multiple medical issues. Prognosis is guarded. Upon discharge patient will follow-up with PMD Dr. Florian.
[2018-03-21] MEDS: Cefepime 1gm in NS 100ml 1 GM/100 ML BAG IVPB SCH (22:36)
--- NOTE | 2018-03-21 23:46 | PN ---
DATE: 03/21/2018 SUBJECTIVE: The patient is in bed, in no acute distress, nontoxic. PHYSICAL EXAMINATION: VITAL SIGNS: On exam, temperature is 98, blood pressure is 120/70, respiratory rate of 16. HEENT: Examination of HEENT is unremarkable. NECK: Supple. LUNGS: Have decreased breath sounds. HEART: Normal S1, S2. ABDOMEN: Soft, nontender. LABORATORY DATA: Laboratory examination reveals the white count is down to 5.5. The patient's procalcitonin is negative x2. The patient's BNP is elevated over 3000. Microbiology is negative. Cultures: Blood, urine, nasal MRSA is not detected. ASSESSMENT AND PLAN: A 62-year-old female with morbid obesity, body mass index of 66; diabetes mellitus; coronary artery disease; hypertension; congestive heart failure; rectal cancer, unresectable, status post chemotherapy, radiation; obstructive sleep apnea; pulmonary emboli; vancomycin-resistant Enterococcus in the urine; extended-spectrum beta-lactamase in the past. Admitted now with sepsis, healthcare-associated pneumonia, normal procalcitonins x2, on doxycycline and Maxipime, day #4, would complete 4-7 days of antibiotics. Most likely, we will discontinue the Maxipime tomorrow and complete with the doxycycline therapy. Lawrence Cheek MD
--- NOTE | 2018-03-22 04:13 | PN ---
DATE: 03/21/2018 PULMONARY PROGRESS NOTE REFERRING PHYSICIAN: Florentino Lewis MD SUBJECTIVE: She is lying in the bed. Feels much better. Tolerated BiPAP well at night. Family is at bedside. Decreased cough and shortness of breath. No chest pain. No abdominal pain. Colostomy bag working well. No leg pain or leg swelling. OBJECTIVE: GENERAL: In no acute distress. VITAL SIGNS: Temperature is 98, heart rate 71, respiratory rate is 20, blood pressure 191/72, pulse ox 93% on 2 liter nasal cannula. HEENT: Moist mucous membrane. Crowded airway. NECK: Supple. No JVD. Short thick neck. LUNGS: Have fair airflow with few rhonchi. HEART: S1 and S2. ABDOMEN: Soft and nontender. No organomegaly. Colostomy bag working well. EXTREMITIES: There is no significant edema. Colostomy bag is working well. NEUROLOGIC: Awake and alert. Follows simple command. MEDICATIONS: She is on hydralazine 25 mg every 8 hour, Brovana inhaled twice a day, clonidine patch every 8 hour, Cozaar 50 mg daily, Ditropan 10 mg daily, doxycycline 100 mg twice a day, vitamin D 50,000 units every 7 days, DuoNeb every 6 hours p.r.n., Ecotrin 81 mg daily, Eliquis 2.5 mg daily, Imdur 60 mg daily, Lasix 20 mg twice a day, Levemir 20 units subcu every 12 hours, Lyrica 50 mg every 12 hour, cefepime 1 g IV every 24 hours, Mysoline 50 mg daily, Nephro vitamins daily, Norvasc 10 mg daily, Pulmicort inhaled twice a day, metoprolol succinate 100 mg daily, Tylenol p.r.n. basis. LABORATORY DATA: Shows hemoglobin is 8.2, hematocrit 27.3, WBC 5.5, platelet count is 187. Sodium 141, potassium 4.6, chloride 105, bicarbonate 32, BUN 52, creatinine 1.7, glucose 126. Uric acid 9.4. Calcium is 8.6. AST 23, ALT 17, alk phos is 89, albumin is 2.9. IMPRESSION AND PLAN: Chronic respiratory failure with carbon dioxide retention and hypoxemia, hypoventilation syndrome, obesity, multilobar infiltrate, venous thrombosis, pulmonary embolism in the past, coronary artery disease, history of colorectal cancer requiring surgery, and has a colostomy, morbid obesity, renal insufficiency. I spoke to patient's family at the bedside. All questions answered. We will try to get a noninvasive ventilation before she leaves. Her pCO2 was over 55 with hypoxemia. Continue inhaled bronchodilator, antibiotics, gastric prophylaxis, anticoagulation. Out of bed to chair. Physical therapy. Thank you and we will follow with you. Pamela Ayala MD
[2018-03-22] MEDS: Insulin Detemir 100 units/ml Vial (Levemir) SC SCH ×3 (06:17→09:18)
[2018-03-22 06:24] VITALS: PULSE 61
--- NOTE | 2018-03-22 07:17 | CP.PCM.PN ---
Subjective - Date & Time of Evaluation Date of Evaluation: 03/22/18 Time of Evaluation: 07:14 - Subjective Subjective: Sergio Mari DO, PGY-2: Nephrology Progress Note for Dr. Swift Patient was seen and examined at bedside. Patient reports no nausea, vomiting, diarrhea, chest pain. She was OOB to chair yesterday. She was encouraged to participate fully with the Respiratory Therapist in regards to Chest Physiotherapy. Objective - Vital Signs/Intake and Output Vital Signs (last 24 hours): Temp Pulse Resp BP Pulse Ox 98.6 F 61 20 178/60 H 93 L 03/21/18 14:00 03/22/18 06:16 03/21/18 14:00 03/22/18 06:16 03/21/18 14:00 Intake and Output: 03/22/18 03/22/18 06:59 18:59 Intake Total 820 Output Total 600 Balance 220 - Medications Medications: Current Medications Acetaminophen (Tylenol 325mg Tab) 650 mg PO Q6H PRN PRN Reason: Pain, Mild (1-3) Last Admin: 03/21/18 10:53 Dose: 650 mg Albuterol/Ipratropium (Duoneb 3 Mg/0.5 Mg (3 Ml) Ud) 3 ml IH [id number] PRN PRN Reason: Wheezing Last Admin: 03/21/18 19:54 Dose: 3 ml Amlodipine Besylate (Norvasc) 10 mg PO DAILY [facility] Last Admin: 03/21/18 09:06 Dose: 10 mg Apixaban (Eliquis) 2.5 mg PO BID JR; Protocol Last Admin: 03/21/18 17:27 Dose: 2.5 mg Arformoterol Tartrate (Brovana) 15 mcg IH [id number] [facility] Last Admin: 03/21/18 19:54 Dose: 15 mcg Aspirin (Ecotrin) 81 mg PO DAILY [facility] Last Admin: 03/21/18 09:06 Dose: 81 mg Budesonide (Pulmicort Respules) 0.5 mg IH [id number] [facility] Last Admin: 03/21/18 19:54 Dose: 0.5 mg Clonidine HCl (Catapres) 0.1 mg PO Q8H JR Last Admin: 03/22/18 06:16 Dose: 0.1 mg Doxycycline Hyclate (Doryx) 100 mg PO Q12 [facility]; Protocol Stop: 03/28/18 10:01 Last Admin: 03/21/18 21:28 Dose: 100 mg Ergocalciferol (Drisdol 50,000 Intl Units Cap) 1 cap PO Q7D [facility] Last Admin: 03/20/18 09:57 Dose: 1 cap Furosemide (Lasix) 20 mg IVP Q12 JR Last Admin: 03/21/18 21:28 Dose: 20 mg Hydralazine HCl (Apresoline) 50 mg PO Q8H JR Cefepime HCl (Maxipime 1gm) 1 gm in 100 mls @ 25 mls/hr IVPB Q24H [facility]; Protocol Stop: 03/27/18 23:16 Last Admin: 03/21/18 22:36 Dose: 25 mls/hr Insulin Detemir (Levemir) 20 unit SC Q12H [facility] Last Admin: 03/21/18 17:29 Dose: Not Given Insulin Human Regular (Humulin R Low) 0 units SC ACHS [facility]; Protocol Last Admin: 03/21/18 22:30 Dose: Not Given Isosorbide Mononitrate (Imdur) 60 mg PO DAILY [facility] Last Admin: 03/21/18 09:06 Dose: 60 mg Losartan Potassium (Cozaar) 50 mg PO DAILY [facility] Metoprolol Succinate (Toprol Xl) 100 mg PO BRK [facility] Last Admin: 03/21/18 08:14 Dose: 100 mg Oxybutynin Chloride (Ditropan Tab) 10 mg PO DAILY [facility] Last Admin: 03/21/18 09:06 Dose: 10 mg Pregabalin (Lyrica) 50 mg PO Q12 [facility] Last Admin: 03/21/18 21:28 Dose: 50 mg Primidone (Mysoline) 50 mg PO DAILY [facility] Last Admin: 03/21/18 09:06 Dose: 50 mg Sodium Chloride ([place] Nasal [place]) 0 ml NS DAILY PRN PRN Reason: Nasal congestion Last Admin: 03/19/18 12:49 Dose: 2 spray Vitamin B Complex/Vit C/Folic Acid (Nephro-[place]) 1 tab PO 0800 [facility] Last Admin: 03/21/18 08:14 Dose: 1 tab - Labs Labs: 03/21/18 07:00 03/21/18 07:00 PT 12.3 SECONDS (9.4-12.5) 03/16/18 10:20 INR 1.07 03/16/18 10:20 APTT 30.7 Seconds (25.1-36.5) 03/16/18 10:20 - Constitutional Appears: Non-toxic, No Acute Distress - Head Exam Head Exam: ATRAUMATIC, NORMOCEPHALIC - Eye Exam Eye Exam: EOMI, Normal appearance - ENT Exam ENT Exam: Mucous Membranes Moist - Neck Exam Additional comments: JVD noted - Respiratory Exam Respiratory Exam: Decreased Breath Sounds (right greater than left), NORMAL BREATHING PATTERN - Cardiovascular Exam Cardiovascular Exam: RRR, +S1, +S2 - Extremities Exam Extremities Exam: absent: Calf Tenderness Additional comments: 2/4 pitting edema - Neurological Exam Neurological Exam: Alert, Awake - Psychiatric Exam Psychiatric exam: Normal Affect, Normal Mood - Skin Skin Exam: Dry, Intact, Normal Color, Warm Assessment and Plan (1) [id number] kidney injury Assessment & Plan: Patient is stage 3B CKD. Dose antibiotics renally, agree with dosing Cefepime 1 g q24h, unless otherwise indicated. Status: Acute (2) Chronic kidney disease-mineral and bone disorder Assessment & Plan: 25-hydroxyvitamin D low at 27.0 Start patient of 50,000 of cholecalciferol once a week PTH elevated in the setting of a normal Ca indicates secondary hyperparathyroidism Status: Acute (3) Anemia of chronic disease Assessment & Plan: Aranesp 0.45 mcg/kg/IV/SC given patient has anemia of CKD and hemoglobin is less than 10; however, will not given patient's blood pressure is already high and Aranesp will further increase it Status: Acute (4) Diastolic CHF Assessment & Plan: Patient on Lasix 20 mg q12h Metoprolol Succinate 100 mg PO daily Status: Acute (5) Hypertensive chronic kidney disease Assessment & Plan: Lasix 20 mg q12h Amlodipine 10 Hydralazine 50 q8h JR Imdur 60 Clonidine 0.1 Q8H Losartan 50 mg Status: Acute (6) Proteinuria Assessment & Plan: 24 hour urine shows sub-nephrotic range proteinuria. Complete serologic work up is pending. Etiology is likely secondary to DM II and uncontrolled hypertension. Status: Acute - Assessment and Plan (Free Text) Plan: Patient to follow up with Dr. Swift as an outpatient
[2018-03-22] MEDS: Arformoterol 15 mcg/2 ml Inh Sol IH SCH (07:23)
[2018-03-22] MEDS: Budesonide 0.5 mg/2 ml Inhal Susp UD IH SCH (07:23)
[2018-03-22] MEDS: Insulin Reg-LOW-Coverage SC SCH ×3 (07:30→16:08)
[2018-03-22 07:56] LABS: BASO # 0.04 K/mm3 (0.0-2.0); BASO % 0.8 % (0.0-3.0); EOS # 0.4 (0.0-0.7); EOS % 7.5 % (1.5-5.0); GRAN # 2.89 (1.4-6.5); GRAN % 55.3 % (50.0-68.0); HEMOGLOBIN 8.4 g/dL (12.0-16.0); LYMPH # 1.6 (1.2-3.4); LYMPH % 29.9 % (22.0-35.0); MEAN CELL VOLUME 84.9 fl (80.0-105.0); MEAN CORPUSCULAR HEMOGLOBIN 25.4 pg (25.0-35.0); MEAN CORPUSCULAR HGB CONC 29.9 g/dl (31.0-37.0); MEAN PLATELET VOLUME 10.6 fl (7.0-11.0); MONO # 0.3 (0.1-0.6); MONO % 6.5 % (1.0-6.0); RBC 3.31 10^6/uL (3.5-6.1); RED CELL DISTRIBUTION WIDTH 17.7 % (11.5-14.5); WHITE BLOOD COUNT 5.2 10^3/ul (4.5-11.0)
[2018-03-22 08:04] VITALS: RESP 22; O2SAT 99
[2018-03-22 08:13] LABS: ALB/GLOB RATIO 0.8 (1.1-1.8); ALBUMIN 2.8 g/dL (3.0-4.8); CALCIUM 8.6 mg/dL (8.4-10.5)
[2018-03-22 09:01] LABS: CREATININE, 24 HOUR URINE 1.13 g/24 h (0.63-2.50)
[2018-03-22] MEDS: Multivitamin Vitamin B Complex (Nephro-Vite) Tab PO SCH (09:16)
[2018-03-22] MEDS: Metoprolol Succinate 100 mg XL Tab PO SCH (09:17)
[2018-03-22 11:52] LABS: ANCA SCREEN NEGATIVE (NEGATIVE)
--- NOTE | 2018-03-22 12:52 | CP.PCM.DIS ---
<Adonis De Paz - Last Filed: 03/23/18 14:38> Provider - Provider Date of Admission: 03/18/18 08:05 Attending physician: Florentino Lewis MD Primary care physician: Elroy Florian MD Consults: Pulmonology - [facility] Time Spent in preparation of Discharge (in minutes): 45 Diagnosis - Discharge Diagnosis (1) Acute hypercapnic respiratory failure due to obstructive sleep apnea Status: Acute (2) Hypercapnic respiratory failure, chronic Status: Acute (3) Acute kidney injury Status: Acute (4) Hypertension Status: Acute (5) Jbdyt-ud-yfzvvni kidney injury Status: Acute (6) Leukocytosis Status: Acute Hospital Course - Lab Results Lab Results: Micro Results 03/19/18 17:55 Blood Blood Culture - Preliminary NO GROWTH AFTER 48 HOURS 03/19/18 17:55 Blood Blood Culture - Preliminary NO GROWTH AFTER 48 HOURS 03/16/18 12:15 Blood-Venous Blood Culture - Final NO GROWTH AFTER 5 DAYS 03/16/18 12:15 Blood-Venous Gram Stain - Final TEST NOT PERFORMED 03/16/18 12:00 Blood-Venous Blood Culture - Final NO GROWTH AFTER 5 DAYS 03/16/18 12:00 Blood-Venous Gram Stain - Final TEST NOT PERFORMED 03/19/18 01:45 Nose MRSA Culture (Admit) - Final MRSA NOT DETECTED 03/19/18 03:30 Urine Urine Culture - Final No Growth (<1,000 CFU/ML) 03/16/18 15:12 Urine,Clean Catch Urine Culture - Final Most Recent Lab Values WBC 5.2 10^3/ul (4.5-11.0) 03/22/18 06:30 RBC 3.31 10^6/uL (3.5-6.1) L 03/22/18 06:30 Hgb 8.4 g/dL (12.0-16.0) L 03/22/18 06:30 Hct 28.1 % (36.0-48.0) L 03/22/18 06:30 MCV 84.9 fl (80.0-105.0) 03/22/18 06:30 MCH 25.4 pg (25.0-35.0) 03/22/18 06:30 MCHC 29.9 g/dl (31.0-37.0) L 03/22/18 06:30 RDW 17.7 % (11.5-14.5) H 03/22/18 06:30 Plt Count 201 10^3/uL (120.0-450.0) 03/22/18 06:30 MPV 10.6 fl (7.0-11.0) 03/22/18 06:30 Gran % 55.3 % (50.0-68.0) 03/22/18 06:30 Lymph % (Auto) 29.9 % (22.0-35.0) 03/22/18 06:30 [place] % (Auto) 6.5 % (1.0-6.0) H 03/22/18 06:30 Eos % (Auto) 7.5 % (1.5-5.0) H 03/22/18 06:30 Baso % (Auto) 0.8 % (0.0-3.0) 03/22/18 06:30 Gran # 2.89 (1.4-6.5) 03/22/18 06:30 Lymph # (Auto) 1.6 (1.2-3.4) 03/22/18 06:30 [place] # (Auto) 0.3 (0.1-0.6) 03/22/18 06:30 Eos # (Auto) 0.4 (0.0-0.7) 03/22/18 06:30 Baso # (Auto) 0.04 K/mm3 (0.0-2.0) 03/22/18 06:30 PT 12.3 SECONDS (9.4-12.5) 03/16/18 10:20 INR 1.07 03/16/18 10:20 APTT 30.7 Seconds (25.1-36.5) 03/16/18 10:20 pCO2 53 mm/Hg (35-45) H 03/18/18 10:00 pO2 81.0 mm/Hg (80-100) 03/18/18 10:00 HCO3 29.9 mmol/L (21-28) H 03/18/18 10:00 ABG pH 7.36 (7.35-7.45) 03/18/18 10:00 ABG Total CO2 31.5 mmol.L (22-28) H 03/18/18 10:00 ABG O2 Saturation 97.8 % (95-98) 03/18/18 10:00 ABG O2 Content 12.0 ML/dl (15-23) L 03/18/18 10:00 ABG Base Excess 3.8 mmol/L (-2.0-3.0) H 03/18/18 10:00 ABG Hemoglobin 8.8 g/dL (11.7-17.4) L 03/18/18 10:00 ABG Carboxyhemoglobin 1.4 % (0.5-1.5) 03/18/18 10:00 POC ABG HHb (Measured) 2.2 % (0-5) 03/18/18 10:00 ABG Methemoglobin 0.3 % (0.0-3.0) 03/18/18 10:00 ABG O2 Capacity 12.3 mL/dl (16-24) L 03/18/18 10:00 ABG Potassium 3.8 mmol/L (3.6-5.2) 03/17/18 11:15 VBG pH 7.31 (7.32-7.43) L 03/16/18 11:20 VBG pCO2 65.0 (40-60) H 03/16/18 11:20 VBG HCO3 32.7 mmol/l (21-28) H 03/16/18 11:20 VBG Total CO2 34.7 mmol.L (22-28) H 03/16/18 11:20 VBG O2 Sat (Calc) 98.7 % (40-65) H 03/16/18 11:20 VBG Base Excess 4.4 mmol/L (0.0-2.0) H 03/16/18 11:20 VBG Potassium 4.1 mmol/L (3.6-5.2) 03/16/18 11:20 Hgb O2 Saturation 96.1 % (95.0-98.0) 03/18/18 10:00 Sodium 139.0 mmol/L (132-148) 03/17/18 11:15 Chloride 106.0 mmol/L (98-107) 03/17/18 11:15 Glucose 93 mg/dl (65-105) 03/17/18 11:15 Lactate 0.3 mmol/L (0.7-2.1) L 03/17/18 11:15 FiO2 32.0 % 03/18/18 10:00 Sodium 141 mmol/L (132-148) 03/22/18 06:30 Potassium 4.4 mmol/L (3.6-5.0) 03/22/18 06:30 Chloride 104 mmol/L (98-107) 03/22/18 06:30 Carbon Dioxide 35 mmol/L (21-33) H 03/22/18 06:30 Anion Gap 7 (10-20) L 03/22/18 06:30 BUN 50 mg/dL (7-21) H 03/22/18 06:30 Creatinine 1.6 mg/dl (0.7-1.2) H 03/22/18 06:30 Est GFR ( Amer) 39 03/22/18 06:30 Est GFR (Non-Af Amer) 33 03/22/18 06:30 POC Glucose (mg/dL) 153 mg/dL (65-110) H 03/22/18 11:12 Random Glucose 138 mg/dL (70-110) H 03/22/18 06:30 Uric Acid 9.4 mg/dL (2.5-6.2) H 03/21/18 07:00 Calcium 8.6 mg/dL (8.4-10.5) 03/22/18 06:30 Phosphorus 4.6 mg/dL (2.5-4.5) H 03/17/18 07:00 Magnesium 1.8 mg/dL (1.7-2.2) 03/17/18 07:00 Iron 38 ug/dL (45-180) L 03/19/18 06:00 TIBC 182 ug/dL (265-497) L 03/19/18 06:00 % Saturation 21 % (20-55) 03/19/18 06:00 Ferritin 229.0 ng/mL 03/19/18 06:00 Total Bilirubin 0.3 mg/dL (0.2-1.3) 03/22/18 06:30 AST 34 U/L (14-36) 03/22/18 06:30 ALT 19 U/L (7-56) 03/22/18 06:30 Alkaline Phosphatase 94 U/L (38-126) 03/22/18 06:30 Lactate Dehydrogenase 617 U/L (333-699) 03/16/18 10:20 Total Creatine Kinase 39 U/L (35-230) 03/16/18 10:20 Troponin I < 0.01 ng/mL D 03/16/18 10:20 NT-Pro-B Natriuret Pep 3400 pg/mL (0-450) H 03/16/18 10:20 Total Protein 6.4 g/dL (5.8-8.3) 03/22/18 06:30 Total Protein (PEP) 5.6 g/dL (6.1-8.1) L 03/19/18 06:00 Albumin 2.8 g/dL (3.0-4.8) L 03/22/18 06:30 Albumin (PEP) 2.3 g/dL (3.8-4.8) L 03/19/18 06:00 Globulin 3.5 gm/dL 03/22/18 06:30 Albumin/Globulin Ratio 0.8 (1.1-1.8) L 03/22/18 06:30 Wkurl-9-Yrsbhktdh 0.4 g/dL (0.2-0.3) H 03/19/18 06:00 Paoze-9-Mqeklkobu 0.8 g/dL (0.5-0.9) 03/19/18 06:00 Pbgd-5-Vaeywhqb 0.4 g/dL (0.4-0.6) 03/19/18 06:00 Ywov-0-Gpdrnnfq 0.5 g/dL (0.2-0.5) 03/19/18 06:00 Gamma Globulins 1.2 g/dL (0.8-1.7) 03/19/18 06:00 Abnorm Protein Band 1 TEST NOT PERFORMED 03/19/18 06:00 Abnorm Protein Band 2 TEST NOT PERFORMED 03/19/18 06:00 Abnorm Protein Band 3 TEST NOT PERFORMED 03/19/18 06:00 25-OH Vitamin D Total 27.3 NG/ML (30.0-100.0) L 03/19/18 06:00 Procalcitonin 0.15 NG/ML (0.19-0.49) L 03/20/18 07:00 PTH Intact Whole Molec 133 pg/mL (14-64) H 03/19/18 06:00 Arterial Blood Potassium 3.8 mmol/L (3.6-5.2) 03/17/18 11:15 Venous Blood Potassium 4.1 mmol/L (3.6-5.2) 03/16/18 11:20 Urine Color Yellow (YELLOW) 03/19/18 03:30 Urine Appearance Clear (CLEAR) 03/19/18 03:30 Urine pH 6.0 (4.7-8.0) 03/19/18 03:30 Ur Specific [place]ile 1.015 (1.005-1.035) 03/19/18 03:30 Urine Protein 100 mg/dL (<30 mg/dL) H 03/19/18 03:30 Urine Glucose (UA) Negative mg/dL (NEGATIVE) 03/19/18 03:30 Urine Ketones Negative mg/dL (NEGATIVE) 03/19/18 03:30 Urine Blood Negative (NEGATIVE) 03/19/18 03:30 Urine Nitrate Negative (NEGATIVE) 03/19/18 03:30 Urine Bilirubin Negative (NEGATIVE) 03/19/18 03:30 Urine Urobilinogen 0.2 E.U./dL (<1 E.U./dL) 03/19/18 03:30 Ur Leukocyte Esterase Negative Martinez/uL (NEGATIVE) 03/19/18 03:30 Urine RBC 0 - 2 /hpf (0-2) 03/19/18 03:30 Urine WBC 0 - 2 /hpf (0-6) 03/19/18 03:30 Ur Epithelial Cells 1 - 3 /hpf (0-5) 03/19/18 03:30 Urine Bacteria Rare (NEG) 03/19/18 03:30 Urine Eosinophils Negative 03/18/18 14:30 Ur Random Creatinine 52 mg/dL (20-320) 03/19/18 03:30 U Random Total Protein 1507 mg/g creat (21-161) H 03/19/18 03:30 Urine Collection Time 24 HOURS 03/21/18 03:00 Urine Total Volume 2100 mL (800-1400) H 03/21/18 03:00 Urine Creatinine 0.54 g/L 03/21/18 03:00 Ur Creatinine 24 Hour 1.13 g/24 h (0.63-2.50) 03/21/18 03:00 Urine Total Volume 28.5 mg/dL 03/19/18 03:30 Microalb/Creat Ratio 543 (<30) H 03/19/18 03:30 Ur Total Protein 24 Hr 2585 mg/24 h (<150) H 03/21/18 03:00 Protein/Creat Ratio 24h 2297 mg/g creat (</=84) H 03/21/18 03:00 Urine Total Protein 1231 mg/L (50-240) H 03/21/18 03:00 Ur Protein 24 Hr Calc 2415 mg/24HR (42-225) H 03/21/18 03:00 Vancomycin Trough 15.9 ug/mL (5.0-10.0) H* 03/18/18 21:58 HOLLAND & SPEP Interp See note 03/19/18 06:00 Serum Immunofixation Not detected (Not Detected) 03/19/18 06:00 ANCA Screen Negative (NEGATIVE) 03/19/18 06:00 c-ANCA Titer TNP 03/19/18 06:00 Proteinase 3 (PR3) <1.0 AI (<1.0) 03/19/18 06:00 p-ANCA Titer TNP 03/19/18 06:00 Atypical p-ANCA Titer TNP 03/19/18 06:00 Myeloperoxidase Ab <1.0 AI (<1.0) 03/19/18 06:00 Histone Antibodies <1.0 U (<1.0) 03/19/18 06:00 Complement C3 97.0 mg/dL (88.0-165.0) 03/19/18 06:00 Complement C4 66.9 mg/dL (14.0-44.0) H 03/19/18 06:00 RPR Nonreactive (NONREACTIVE) 03/19/18 06:00 Hep Bs Antigen Negative (NEGATIVE) 03/19/18 06:00 Hepatitis C Antibody Negative (NEGATIVE) 03/19/18 06:00 Influenza Typ A,B (EIA) Negative for flu a/b (NEGATIVE) 03/16/18 10:20 Ur L.pneumophila Ag Negative (NEGATIVE) 03/18/18 12:20 Pneumocystis Source Serum 03/16/18 11:00 S. 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 Of note, patient reports her symptoms are similar to when she was previously admitted on 02/11/18 for Acute on Chronic Resp failure 2/2 PNA + CHF. She was discharged from rehab facility 2 weeks prior to presentation on 03/16. Symptoms have been worsening over these previous two weeks; she was recommended to follow up with pulmonology as an outpatient for sleep study. She reports she had not followed up; does not have Bipap at home which she was recommended to start using. She also reported some burning upon urination at time of admisision. She was also noted to have Acute kidney injury And uncontrolled hypertension. She was started on empiric antibiotic therapy to cover for Healthcare associated pneumonia as well as UTI. Infectious disease was consulted, Pulmonology was consulted, And nephrology was consulted. She was subsequently admitted for hypercapnic respiratory acidosis, and started on bipap. Repeat ABGs begin showing her acidosis was improving; and subsequently patient was stabilized by using bipap nightly. Nightly bipap use along w/ duoneb and chest PT helped reduce her overall complaints of lethargy/ fatigue/ SOB. From an infectious disease stand point, her CXR showed diffuse R sided infiltrates which were unchanged from prior images. Patient was managed w/ iv antibiotics and spiked a fever once during admission. Patient's white count remained stable throughout admission, her repeat UA showed no bacteria, and her procal level was negative. Through her course her SHELBI improved, and heruncontrolled hypertension were stabilized by nephrology. On time of admission; her BP was 160/60. She wis to follow up with nephrology while she is in [facility]. Morning prior to discharge patient was voicing no complaints, she denied any shortness of breath, fever, chills, urinary discomfort, chest pain. Medications were reconciled and she was discharged to [facility] with the following instructions: Please follow up with your primary care doctor, Dr. Florian, within 3-5 days of being discharged. Please discuss all medical issues addressed during your admission. Please follow up with your objects conservator, Dr. Swift, in one week (even if you are at rehab). You will need to complete a basic metabolic panel prior to seeing him in his office to assess your kidney function and electrolyte status. Please follow up with your outside machinist helper, Dr. Ayala, ine one to two weeks to reassess your respiratory function. Some changes have been made to your medications as follows: 1. You were taking Lasix 40mg tablet by mouth at night. YOU WILL NOW BE TAKING Lasix 40mg tablet by mouth once daily in the MORNING. YOU WILL ALSO BE TAKING Lasix 20mg tablet by mouth once daily in the AFTERNOON. 2. You will be taking COZAAR 50mg tablet by mouth once daily. This is a blood pressure pill. Please continue all other medications as prescribed while at subacute rehab Please continue using BiPAP overnight; Apply BiPap before bed time w/ the following settings: IPAP 20, EPAP 10, FiO2 40%, Rate 18 During the day you can use Home Oxygen via nasal canula at setting of 3L If your symptoms return, please seek emergency medical treatment immediately. ------- Patient is medically optimized for discharge at this time - Date & Time of H&P Date of H&P: 03/16/18 Time of H&P: 15:29 Discharge Exam - Head Exam Head Exam: ATRAUMATIC, NORMOCEPHALIC - Eye Exam Eye Exam: EOMI, Normal appearance, PERRL. absent: Scleral icterus - ENT Exam ENT Exam: Mucous Membranes Moist - Respiratory Exam Respiratory Exam: Rales (Bibasilar improved), NORMAL BREATHING PATTERN - Cardiovascular Exam Cardiovascular Exam: RRR, +S1, +S2. absent: Systolic Murmur - GI/Abdominal Exam GI & Abdominal Exam: Normal Bowel Sounds, Unremarkable. absent: Tenderness Additional comments: Ostomy appliance in place draining appropriately - Extremities Exam Additional comments: 4+ pitting edema LE BL - Neurological Exam Neurological exam: Alert, CN II-XII Intact, Oriented x3 - Psychiatric Exam Psychiatric exam: Normal Affect, Normal Mood - Skin Skin Exam: Dry, Intact, Normal Color, Warm Discharge Plan - Discharge Medications Prescriptions: Furosemide [Lasix] 20 mg PO QPM #14 tab Furosemide [Lasix] 40 mg PO QAM #14 tab hydrALAZINE [Apresoline] 50 mg PO TID #84 tab - Follow Up Plan Condition: STABLE Disposition: REHAB FACILITY/REHAB UNIT Patient education suggested?: Yes Instructions: Pneumonia in Adults, Preventing Falls in the Older Adult Additional Instructions: Please follow up with your primary care doctor, Dr. Florian, within 3-5 days of being discharged. Please discuss all medical issues addressed during your admission. Please follow up with your objects conservator, Dr. Swift, in one week (even if you are at rehab). You will need to complete a basic metabolic panel prior to seeing him in his office to assess your kidney function and electrolyte status. Please follow up with your outside machinist helper, Dr. Ayala, ine one to two weeks to reassess your respiratory function. Some changes have been made to your medications as follows: 1. You were taking Lasix 40mg tablet by mouth at night. YOU WILL NOW BE TAKING Lasix 40mg tablet by mouth once daily in the MORNING. YOU WILL ALSO BE TAKING Lasix 20mg tablet by mouth once daily in the AFTERNOON. 2. You will be taking COZAAR 50mg tablet by mouth once daily. This is a blood pressure pill. Please continue all other medications as prescribed while at subacute rehab Please continue using BiPAP overnight; Apply BiPap before bed time w/ the following settings: IPAP 20, EPAP 10, FiO2 40%, Rate 18 During the day you can use Home Oxygen via nasal canula at setting of 3L If your symptoms return, please seek emergency medical treatment immediately. Referrals: Wes Swift MD [Staff Provider] - Elroy Florian MD [Primary Care Provider] - <Florentino Lewis - Last Filed: 03/23/18 15:08> Provider - Provider Date of Admission: 03/18/18 08:05 Attending physician: Florentino Lewis MD Primary care physician: Elroy Florian MD Hospital Course - Lab Results Lab Results: Micro Results 03/19/18 17:55 Blood Blood Culture - Preliminary NO GROWTH AFTER 3 DAYS 03/19/18 17:55 Blood Blood Culture - Preliminary NO GROWTH AFTER 3 DAYS 03/16/18 12:15 Blood-Venous Blood Culture - Final NO GROWTH AFTER 5 DAYS 03/16/18 12:15 Blood-Venous Gram Stain - Final TEST NOT PERFORMED 03/16/18 12:00 Blood-Venous Blood Culture - Final NO GROWTH AFTER 5 DAYS 03/16/18 12:00 Blood-Venous Gram Stain - Final TEST NOT PERFORMED 03/19/18 01:45 Nose MRSA Culture (Admit) - Final MRSA NOT DETECTED 03/19/18 03:30 Urine Urine Culture - Final No Growth (<1,000 CFU/ML) 03/16/18 15:12 Urine,Clean Catch Urine Culture - Final Most Recent Lab Values WBC 5.2 10^3/ul (4.5-11.0) 03/22/18 06:30 RBC 3.31 10^6/uL (3.5-6.1) L 03/22/18 06:30 Hgb 8.4 g/dL (12.0-16.0) L 03/22/18 06:30 Hct 28.1 % (36.0-48.0) L 03/22/18 06:30 MCV 84.9 fl (80.0-105.0) 03/22/18 06:30 MCH 25.4 pg (25.0-35.0) 03/22/18 06:30 MCHC 29.9 g/dl (31.0-37.0) L 03/22/18 06:30 RDW 17.7 % (11.5-14.5) H 03/22/18 06:30 Plt Count 201 10^3/uL (120.0-450.0) 03/22/18 06:30 MPV 10.6 fl (7.0-11.0) 03/22/18 06:30 Gran % 55.3 % (50.0-68.0) 03/22/18 06:30 Lymph % (Auto) 29.9 % (22.0-35.0) 03/22/18 06:30 [place] % (Auto) 6.5 % (1.0-6.0) H 03/22/18 06:30 Eos % (Auto) 7.5 % (1.5-5.0) H 03/22/18 06:30 Baso % (Auto) 0.8 % (0.0-3.0) 03/22/18 06:30 Gran # 2.89 (1.4-6.5) 03/22/18 06:30 Lymph # (Auto) 1.6 (1.2-3.4) 03/22/18 06:30 [place] # (Auto) 0.3 (0.1-0.6) 03/22/18 06:30 Eos # (Auto) 0.4 (0.0-0.7) 03/22/18 06:30 Baso # (Auto) 0.04 K/mm3 (0.0-2.0) 03/22/18 06:30 PT 12.3 SECONDS (9.4-12.5) 03/16/18 10:20 INR 1.07 03/16/18 10:20 APTT 30.7 Seconds (25.1-36.5) 03/16/18 10:20 pCO2 53 mm/Hg (35-45) H 03/18/18 10:00 pO2 81.0 mm/Hg (80-100) 03/18/18 10:00 HCO3 29.9 mmol/L (21-28) H 03/18/18 10:00 ABG pH 7.36 (7.35-7.45) 03/18/18 10:00 ABG Total CO2 31.5 mmol.L (22-28) H 03/18/18 10:00 ABG O2 Saturation 97.8 % (95-98) 03/18/18 10:00 ABG O2 Content 12.0 ML/dl (15-23) L 03/18/18 10:00 ABG Base Excess 3.8 mmol/L (-2.0-3.0) H 03/18/18 10:00 ABG Hemoglobin 8.8 g/dL (11.7-17.4) L 03/18/18 10:00 ABG Carboxyhemoglobin 1.4 % (0.5-1.5) 03/18/18 10:00 POC ABG HHb (Measured) 2.2 % (0-5) 03/18/18 10:00 ABG Methemoglobin 0.3 % (0.0-3.0) 03/18/18 10:00 ABG O2 Capacity 12.3 mL/dl (16-24) L 03/18/18 10:00 ABG Potassium 3.8 mmol/L (3.6-5.2) 03/17/18 11:15 VBG pH 7.31 (7.32-7.43) L 03/16/18 11:20 VBG pCO2 65.0 (40-60) H 03/16/18 11:20 VBG HCO3 32.7 mmol/l (21-28) H 03/16/18 11:20 VBG Total CO2 34.7 mmol.L (22-28) H 03/16/18 11:20 VBG O2 Sat (Calc) 98.7 % (40-65) H 03/16/18 11:20 VBG Base Excess 4.4 mmol/L (0.0-2.0) H 03/16/18 11:20 VBG Potassium 4.1 mmol/L (3.6-5.2) 03/16/18 11:20 Hgb O2 Saturation 96.1 % (95.0-98.0) 03/18/18 10:00 Sodium 139.0 mmol/L (132-148) 03/17/18 11:15 Chloride 106.0 mmol/L (98-107) 03/17/18 11:15 Glucose 93 mg/dl (65-105) 03/17/18 11:15 Lactate 0.3 mmol/L (0.7-2.1) L 03/17/18 11:15 FiO2 32.0 % 03/18/18 10:00 Sodium 141 mmol/L (132-148) 03/22/18 06:30 Potassium 4.4 mmol/L (3.6-5.0) 03/22/18 06:30 Chloride 104 mmol/L (98-107) 03/22/18 06:30 Carbon Dioxide 35 mmol/L (21-33) H 03/22/18 06:30 Anion Gap 7 (10-20) L 03/22/18 06:30 BUN 50 mg/dL (7-21) H 03/22/18 06:30 Creatinine 1.6 mg/dl (0.7-1.2) H 03/22/18 06:30 Est GFR ( Amer) 39 03/22/18 06:30 Est GFR (Non-Af Amer) 33 03/22/18 06:30 POC Glucose (mg/dL) 137 mg/dL (65-110) H 03/22/18 16:00 Random Glucose 138 mg/dL (70-110) H 03/22/18 06:30 Uric Acid 9.4 mg/dL (2.5-6.2) H 03/21/18 07:00 Calcium 8.6 mg/dL (8.4-10.5) 03/22/18 06:30 Phosphorus 4.6 mg/dL (2.5-4.5) H 03/17/18 07:00 Magnesium 1.8 mg/dL (1.7-2.2) 03/17/18 07:00 Iron 38 ug/dL (45-180) L 03/19/18 06:00 TIBC 182 ug/dL (265-497) L 03/19/18 06:00 % Saturation 21 % (20-55) 03/19/18 06:00 Ferritin 229.0 ng/mL 03/19/18 06:00 Total Bilirubin 0.3 mg/dL (0.2-1.3) 03/22/18 06:30 AST 34 U/L (14-36) 03/22/18 06:30 ALT 19 U/L (7-56) 03/22/18 06:30 Alkaline Phosphatase 94 U/L (38-126) 03/22/18 06:30 Lactate Dehydrogenase 617 U/L (333-699) 03/16/18 10:20 Total Creatine Kinase 39 U/L (35-230) 03/16/18 10:20 Troponin I < 0.01 ng/mL D 03/16/18 10:20 NT-Pro-B Natriuret Pep 3400 pg/mL (0-450) H 03/16/18 10:20 Total Protein 6.4 g/dL (5.8-8.3) 03/22/18 06:30 Total Protein (PEP) 5.6 g/dL (6.1-8.1) L 03/19/18 06:00 Albumin 2.8 g/dL (3.0-4.8) L 03/22/18 06:30 Albumin (PEP) 2.3 g/dL (3.8-4.8) L 03/19/18 06:00 Globulin 3.5 gm/dL 03/22/18 06:30 Albumin/Globulin Ratio 0.8 (1.1-1.8) L 03/22/18 06:30 Gbfbh-5-Dqrfhwcwn 0.0 Relative % 03/21/18 03:00 Cixup-5-Oxmaeedhn 8.1 Relative % 03/21/18 03:00 Beta Globulins 9.4 Relative % 03/21/18 03:00 Vrjr-3-Mogfbyeb 0.4 g/dL (0.4-0.6) 03/19/18 06:00 Cmuf-6-Dvxpqbfw 0.5 g/dL (0.2-0.5) 03/19/18 06:00 Gamma Globulins 25.4 Relative % 03/21/18 03:00 Abnorm Protein Band 1 TEST NOT PERFORMED 03/19/18 06:00 Abnorm Protein Band 2 TEST NOT PERFORMED 03/19/18 06:00 Abnorm Protein Band 3 TEST NOT PERFORMED 03/19/18 06:00 25-OH Vitamin D Total 27.3 NG/ML (30.0-100.0) L 03/19/18 06:00 Procalcitonin 0.15 NG/ML (0.19-0.49) L 03/20/18 07:00 PTH Intact Whole Molec 133 pg/mL (14-64) H 03/19/18 06:00 Arterial Blood Potassium 3.8 mmol/L (3.6-5.2) 03/17/18 11:15 Venous Blood Potassium 4.1 mmol/L (3.6-5.2) 03/16/18 11:20 Urine Color Yellow (YELLOW) 03/19/18 03:30 Urine Appearance Clear (CLEAR) 03/19/18 03:30 Urine pH 6.0 (4.7-8.0) 03/19/18 03:30 Ur Specific [place] 1.015 (1.005-1.035) 03/19/18 03:30 Urine Protein 100 mg/dL (<30 mg/dL) H 03/19/18 03:30 Urine Glucose (UA) Negative mg/dL (NEGATIVE) 03/19/18 03:30 Urine Ketones Negative mg/dL (NEGATIVE) 03/19/18 03:30 Urine Blood Negative (NEGATIVE) 03/19/18 03:30 Urine Nitrate Negative (NEGATIVE) 03/19/18 03:30 Urine Bilirubin Negative (NEGATIVE) 03/19/18 03:30 Urine Urobilinogen 0.2 E.U./dL (<1 E.U./dL) 03/19/18 03:30 Ur Leukocyte Esterase Negative Martinez/uL (NEGATIVE) 03/19/18 03:30 Urine RBC 0 - 2 /hpf (0-2) 03/19/18 03:30 Urine WBC 0 - 2 /hpf (0-6) 03/19/18 03:30 Ur Epithelial Cells 1 - 3 /hpf (0-5) 03/19/18 03:30 Urine Bacteria Rare (NEG) 03/19/18 03:30 Urine Eosinophils Negative 03/18/18 14:30 Ur Random Creatinine 52 mg/dL (20-320) 03/19/18 03:30 U Random Total Protein 1507 mg/g creat (21-161) H 03/19/18 03:30 Urine Collection Time 24 HOURS 03/21/18 03:00 Urine Total Volume 2100 mL (800-1400) H 03/21/18 03:00 Urine Creatinine 0.54 g/L 03/21/18 03:00 Ur Creatinine 24 Hour 1.13 g/24 h (0.63-2.50) 03/21/18 03:00 Urine Total Volume 28.5 mg/dL 03/19/18 03:30 Microalb/Creat Ratio 543 (<30) H 03/19/18 03:30 Ur Total Protein 24 Hr 2585 mg/24 h (<150) H 03/21/18 03:00 Protein/Creat Ratio 24h 2297 mg/g creat (</=84) H 03/21/18 03:00 Urine Total Protein 1231 mg/L (50-240) H 03/21/18 03:00 Ur Protein 24 Hr Calc 2415 mg/24HR (42-225) H 03/21/18 03:00 Urine Albumin (PEP) 57.1 Relative % 03/21/18 03:00 Ur Protein Fractions See note 03/21/18 03:00 Vancomycin Trough 15.9 ug/mL (5.0-10.0) H* 03/18/18 21:58 HOLLAND & SPEP Interp See note 03/19/18 06:00 Serum Immunofixation Not detected (Not Detected) 03/19/18 06:00 MARIA LUZ Screen Negative (Negative) 03/19/18 06:00 MARIA LUZ Titer TEST NOT PERFORMED 03/19/18 06:00 MARIA LUZ Titer 2 TEST NOT PERFORMED 03/19/18 06:00 MARIA LUZ Pattern TEST NOT PERFORMED 03/19/18 06:00 MARIA LUZ Pattern 2 TEST NOT PERFORMED 03/19/18 06:00 ANCA Screen Negative (NEGATIVE) 03/19/18 06:00 c-ANCA Titer TNP 03/19/18 06:00 Proteinase 3 (PR3) <1.0 AI (<1.0) 03/19/18 06:00 p-ANCA Titer TNP 03/19/18 06:00 Atypical p-ANCA Titer TNP 03/19/18 06:00 Myeloperoxidase Ab <1.0 AI (<1.0) 03/19/18 06:00 Histone Antibodies <1.0 U (<1.0) 03/19/18 06:00 Complement C3 97.0 mg/dL (88.0-165.0) 03/19/18 06:00 Complement C4 66.9 mg/dL (14.0-44.0) H 03/19/18 06:00 [place]/Lambda Light Chain (()) 03/19/18 06:00 Free [place] Light Chains 83.8 mg/L (3.3-19.4) H 03/19/18 06:00 Free Lambda Light Chain 50.9 mg/L (5.7-26.3) H 03/19/18 06:00 Free [place]/Lambda Ratio 1.65 (0.26-1.65) 03/19/18 06:00 RPR Nonreactive (NONREACTIVE) 03/19/18 06:00 Hep Bs Antigen Negative (NEGATIVE) 03/19/18 06:00 Hepatitis C Antibody Negative (NEGATIVE) 03/19/18 06:00 Influenza Typ A,B (EIA) Negative for flu a/b (NEGATIVE) 03/16/18 10:20 Ur L.pneumophila Ag Negative (NEGATIVE) 03/18/18 12:20 Pneumocystis Source Serum 03/16/18 11:00 S. pneumoniae Antigen Not detected 03/16/18 11:00 Blood Type O POSITIVE 03/16/18 10:20 Antibody Screen Negative 03/16/18 10:20 BBK History Checked Patient has bt 03/16/18 10:20 Attending/Attestation - Attestation I have personally seen and examined this patient.: Yes I have fully participated in the care of the patient.: Yes I have reviewed all pertinent clinical information, including history, physical exam and plan: Yes Notes (Text): 03/23/18 15:07 Attending note; Patient seen and examined with the resident. Patient is alert and awake. Was using BiPAP at night. Currently on oxygen nasal cannula. no nose bleed. Patient is a 62 year old female with past medical history of hypertension, diabetes, CAD, COPD, DVT/PE on eliquis, CKD, colorectal cancer s/p resection and colostomy, morbid obesity and chronic back pain is admitted with acute shortness of breath. 1. Hypercapnic respiratory failure. Secondary to sleep apnea and morbid obesity. Started on BiPAP during night. Continue oxygen during daytime. Continue DuoNeb treatment. Case discussed with outside machinist helper Dr. Ayala in detail. Case discussed with welfare case worker for outpatient BiPAP/CPAP arrangement. forms completed. nasal saline/humidified oxygen to avoid nosebleeds. 2. Right sided pneumonia and sepsis. ID evaluation appreciated. Patient is on doxycycline and cefepime. Blood culture is negative. Urine cultures negative. MRSA screen negative. 3. Hypertension; BP is elevated. Medications increased .continue Norvasc, Imdur,lasix, hydralazine and clonidine. 4. Acute on chronic kidney disease; creatinine is improving. Nephrology evaluation appreciated. Needs close outpatient follow-up. 5.Anemia; chronic and stable .hemoglobin is 8.4. 6. History of DVT and PE; Patient is on eliquis. Continue to monitor CBC closely. 7. History of colostomy; monitor output. PT evaluation appreciated. Subacute rehabilitation recommended. Case discussed with welfare case worker in detail for discharge planning. Transfer to [facility] for subacute rehabilitation today. Upon discharge patient will follow-up with PMD Dr. Florian.
[2018-03-22 13:59] LABS: ALBUMIN 57.1 Relative %
[2018-03-22 14:48] VITALS: BP 160/63
--- NOTE | 2018-03-22 23:26 | PN ---
DATE: 03/22/2018 PULMONARY PROGRESS NOTE REFERRING PHYSICIAN: Florentino Lewis MD. SUBJECTIVE: She is lying in the bed, on nasal cannula oxygen. Night was unremarkable, tolerated noninvasive ventilation well. No cough. No sputum production. No hemoptysis. No emesis. No hematuria. No diarrhea reported. OBJECTIVE: GENERAL: No acute distress. VITAL SIGNS: Temperature is 98, heart rate 61, respiratory is 22, blood pressure 170/80, pulse ox 99% on 2 liters nasal cannula. HEENT: Moist mucous membrane. Crowded airway, short thick neck. LUNGS: Have a fair airflow with few rhonchi. HEART: S1, S2. ABDOMEN: Soft, nontender, no organomegaly. EXTREMITIES: No edema. NEUROLOGIC: Awake, alert, follows simple command. Medication reviewed. Noted no change in medications since yesterday. LABORATORY DATA: Reviewed, shows hemoglobin 8.4, hematocrit 28.1, WBC 5.2, platelet is 201. Sodium 141, potassium 4.4, chloride 104, bicarbonate 31, BUN 50, creatinine 1.6, glucose 138, calcium is 8.6, AST 34, ALT 19, alk phos is 94. Albumin is 2.8. IMPRESSION AND PLAN: Chronic respiratory failure with CO2 retention and hypoxemia, hypoventilation syndrome, obesity, multilobar infiltrate deep venous thrombosis, pulmonary embolism, coronary artery disease, history of colorectal cancer requiring colostomy, radiation and chemotherapy, renal insufficiency. Pulmonary point of view, doing well. Will need noninvasive ventilation at home. She is being discharged to subacute. Advised to call me in my office so we can make arrangement for noninvasive ventilation for home. Continue bronchodilator. Keep head at 45 degrees. Gastric prophylaxis, anticoagulation, fall precaution. Pressure ulcer precaution. Thank you and we will follow with you. Pamela Ayala MD
[2018-03-25 08:06] LABS: COLLECTION TIME 24 Hours; TOTAL VOLUME 2.1 Liters
--- NOTE | 2018-03-25 08:39 | PN ---
DATE: 03/22/2018 SUBJECTIVE: The patient is in bed, in no acute distress, nontoxic. PHYSICAL EXAMINATION: VITAL SIGNS: Temperature is 98, blood pressure is 120/70, respiratory rate 16. HEENT: Unremarkable. NECK: Supple. LUNGS: Have decreased breath sounds. HEART: Normal S1 and S2. ABDOMEN: Soft, nontender. LABORATORY DATA: Reviewed. Cultures are negative. ASSESSMENT AND PLAN: This is a 62-year-old female with morbid obesity, body mass index of 66; diabetes mellitus; coronary artery disease; hypertension; congestive heart failure; rectal cancer, unresectable, status post chemotherapy, radiation; obstructive sleep apnea; pulmonary emboli and vancomycin-resistant Enterococcus in the urine, extended-spectrum beta-lactamase in the past. Admitted with sepsis, healthcare-associated pneumonia, normal procalcitonin, day #5 of doxycycline and Maxipime. The patient has got adequate therapy. Case discussed with nursing staff. Lawrence Cheek MD
== END 2018-03-22 17:11 | DRG 871 ==
LOC: ED 10:09 → ERH 12:50 → 5RNO 15:43 → OBSVTOIN 03-18 08:05
PROVIDERS: ADMIT Internal Medicine; ATTEND Internal Medicine
PROC: 5A09457 Assistance with Respiratory Ventilation, 24-96 Consecutive Hours, Continuous Positive Airway Pressure (ICD-10-PCS; principal; 2018-03-17)
DX: A41.9 Sepsis, unspecified organism (principal); J18.9 Pneumonia, unspecified organism; J96.21 Acute and chronic respiratory failure with hypoxia; J96.22 Acute and chronic respiratory failure with hypercapnia; I13.0 Hypertensive heart and chronic kidney disease with heart failure and stage 1 through stage 4 chronic kidney disease, or unspecified chronic kidney disease; N17.9 Acute kidney failure, unspecified; I50.32 Chronic diastolic (congestive) heart failure; E87.2 Acidosis; J44.0 Chronic obstructive pulmonary disease with (acute) lower respiratory infection; N39.0 Urinary tract infection, site not specified; E66.2 Morbid (severe) obesity with alveolar hypoventilation; I42.9 Cardiomyopathy, unspecified; J44.1 Chronic obstructive pulmonary disease with (acute) exacerbation; N25.81 Secondary hyperparathyroidism of renal origin; C20 Malignant neoplasm of rectum; Z68.43 Body mass index [BMI] 50.0-59.9, adult; I25.10 Atherosclerotic heart disease of native coronary artery without angina pectoris; E11.40 Type 2 diabetes mellitus with diabetic neuropathy, unspecified; E11.22 Type 2 diabetes mellitus with diabetic chronic kidney disease; N18.3 Chronic kidney disease, stage 3 (moderate); D63.1 Anemia in chronic kidney disease; R04.0 Epistaxis; Y95 Nosocomial condition; E78.5 Hyperlipidemia, unspecified; Z86.711 Personal history of pulmonary embolism; Z93.3 Colostomy status; Z86.718 Personal history of other venous thrombosis and embolism; Z91.19 Patient's noncompliance with other medical treatment and regimen; Z99.81 Dependence on supplemental oxygen; Z95.5 Presence of coronary angioplasty implant and graft; Z79.4 Long term (current) use of insulin; Z79.01 Long term (current) use of anticoagulants; Z79.82 Long term (current) use of aspirin

== ENCOUNTER 2018-04-08 21:08 | Inpatient (IN) | payer MEDICARE, OTHER ==
--- NOTE | 2018-04-08 21:24 | ED PDOC ---
Arrival/HPI - General Chief Complaint: Abnormal Labs Time Seen by Provider: 04/08/18 21:09 Historian: Patient - History of Present Illness Narrative History of Present Illness (Text): 04/08/18 21:24 Pedro Guevara is a 62 year old female, whose past medical history includes DVT/PE on Eliquis, COPD, CKD, anemia, colorectal cancer s/p resection with colostomy, CAD with stent placement, hypertension, and chronic back pain, who presents to the Emergency department sent from [facility] accompanied by son for abnormal labs. Son reports patient was sent by her PMD for low hemoglobin noted in her labwork from earlier today. Patient also complaining of diffuse abdominal pain. Patient denies any fever, chills, chest pain, shortness of breath, urinary symptoms, back pain, neck pain, headache, dizziness, or any other complaints. PMD: Dr. Hanny Florian Symptom Onset: Gradual Symptom Course: Unchanged Activities at Onset: Light Context: Home Past Medical History - Provider Review Nursing Documentation Reviewed: Yes - Infectious Disease Hx of Infectious Diseases: None - Tetanus Immunization Tetanus Immunization: Unknown - Cardiac Hx Congestive Heart Failure: Yes Hx Hypertension: Yes - Pulmonary Hx Respiratory Disorders: Yes Hx Bronchitis: Yes Hx Chronic Obstructive Pulmonary Disease (COPD): Yes Hx Pulmonary Embolism: Yes - Neurological Hx Neurological Disorder: Yes Hx Dizziness: Yes - HEENT Hx Macular Degeneration: No - Renal Hx Renal Failure: Yes - Endocrine/Metabolic Hx Diabetes Mellitus Type 2: Yes - Hematological/Oncological Hx Blood Disorders: No - Integumentary Hx Dermatological Disorder: No - Musculoskeletal/Rheumatological Hx Falls: No - Gastrointestinal Hx Gastrointestinal Disorders: Yes (RECTAL CA WITH COLOSTOMY,GI BLEED) - Genitourinary/Gynecological Hx Genitourinary Disorders: Yes (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,UTI) - Psychiatric Hx Psychophysiologic Disorder: Yes Hx Anxiety: Yes Hx Substance Use: No - Surgical History Hx Appendectomy: Yes Hx Coronary Stent: Yes Other/Comment: colostomy - Anesthesia Hx Anesthesia: Yes Hx Anesthesia Reactions: No Hx Malignant Hyperthermia: No - Suicidal Assessment Feels Threatened In Home Enviroment: No Family/Social History - Physician Review Nursing Documentation Reviewed: Yes Family/Social History: Unknown Family HX Smoking Status: Never Smoked Hx Alcohol Use: No Hx Substance Use: No Hx Substance Use Treatment: No Allergies/Home Meds Allergies/Adverse Reactions: Allergies No Known Allergies Allergy (Verified 04/08/18 21:16) Home Medications: Home Meds Medication Instructions Recorded Confirmed Apixaban [Eliquis] 1 tab PO DAILY 02/10/18 04/08/18 Aspirin [Adult Low Dose Aspirin EC] 1 tab PO DAILY 02/10/18 04/08/18 Furosemide [Lasix] 1 tab PO HS 02/10/18 04/08/18 Isosorbide Mononitrate [Imdur] 1 tab PO DAILY 02/10/18 04/08/18 Metoprolol Succinate [Kapspargo 1 tab PO DAILY 02/10/18 04/08/18 Sprinkle] Oxybutynin Chloride [Oxybutynin 1 tab PO DAILY 02/10/18 04/08/18 Chloride ER] Pantoprazole [Protonix EC Tab] 1 tab PO DAILY 02/10/18 04/08/18 Pregabalin [Lyrica] 1 tab PO DAILY 02/10/18 04/08/18 Primidone [Mysoline] 1 tab PO DAILY 02/10/18 04/08/18 Simvastatin [Zocor] 1 tab PO HS 02/10/18 04/08/18 amLODIPine [Norvasc] 1 tab PO DAILY 02/10/18 04/08/18 metOLazone [Zaroxolyn] 1 tab PO DAILY 02/10/18 04/08/18 Review of Systems - Physician Review All systems were reviewed & negative as marked: Yes - Review of Systems Constitutional: Normal. absent: Fevers Eyes: Normal ENT: Normal Respiratory: Normal. absent: SOB, Cough Cardiovascular: Normal. absent: Chest Pain Gastrointestinal: Abdominal Pain Genitourinary Female: Normal. absent: Dysuria, Frequency, Hematuria, Urine Output Changes Musculoskeletal: Normal. absent: Back Pain, Neck Pain Skin: Normal. absent: Rash Neurological: Normal. absent: Headache, Dizziness Endocrine: Normal Hemo/Lymphatic: Other (+low hemoglobin) Psychiatric: Normal Physical Exam Vital Signs Reviewed: Yes Temperature: Afebrile Blood Pressure: Hypertensive Pulse: Regular Respiratory Rate: Normal Appearance: Positive for: Well-Appearing, Non-Toxic, Comfortable Pain Distress: None Mental Status: Positive for: Alert and Oriented X 3 - Systems Exam Head: Present: Atraumatic, Normocephalic Pupils: Present: PERRL Extroacular Muscles: Present: EOMI Conjunctiva: Present: Normal Mouth: Present: Moist Mucous Membranes Neck: Present: Normal Range of Motion Respiratory/Chest: Present: Clear to Auscultation, Good Air Exchange. No: Respiratory Distress, Accessory Muscle Use Cardiovascular: Present: Regular Rate and Rhythm, Normal S1, S2. No: Murmurs Abdomen: Present: Tenderness (Diffuse mid/lower abdominal tenderness). No: Distention, Peritoneal Signs, Other (No erythema noted around colostomy) Back: Present: Normal Inspection Upper Extremity: Present: Normal Inspection. No: Cyanosis, Edema Lower Extremity: Present: Normal Inspection. No: Edema Neurological: Present: GCS=15, CN II-XII Intact, Speech Normal Skin: Present: Warm, Dry, Normal Color. No: Rashes Psychiatric: Present: Alert, Oriented x 3, Normal Insight, Normal Concentration Medical Decision Making ED Course and Treatment: 04/08/18 21:24 Impression: 62 year old female [facility] from [facility] for low hemoglobin and abdominal pain. Plan: -- CT Abdomen and Pelvis -- EKG -- Chest X-ray -- Labs, lipase -- IV fluids -- Zofran -- Protonix -- Morphine -- Reassess and disposition Prior Visits: Notes and results from previous visits were reviewed. Progress Notes: 04/08/18 21:50 Reviewed EKG, NSR at [address]-segment elevations or depressions, no T-wave inversions, normal intervals. 04/08/18 23:40 Chest X-ray reviewed, shows no acute processes. 04/09/18 01:03 CT Abdomen and Pelvis: Bilateral basilar atelectatic memory changes, unchanged. Left lower quadrant colostomy is unremarkable. Unchanged adjacent fat containing peristomal hernia. Stomach and anterior abdominal wall hernia containing nonincarcerated stomach and small bowel loops. Partial small bowel obstruction with a transition zone in the right lower quadrant. No evidence of incarcerated hernia. Pleural effusion is noted. Unchanged presacral soft tissue thickening. IVC filter is noted. Mildly enlarged unenhanced liver. Normal gallbladder and extrahepatic biliary system. Normal unenhanced spleen. Normal pancreas. Normal bilateral adrenal glands. Normal size of the right kidney. There is no right renal mass. There are no right renal calculi. There is no right hydronephrosis. Normal visualized right ureter. Normal size of the left kidney. There is no left renal mass. There are no left renal calculi. There is no left hydronephrosis. Normal visualized left ureter. There is no demonstrated peritoneal fluid. Normal abdominal aorta. Filter is noted in the inferior vena cava. Normal retroperitoneum. Normal urinary bladder. There is no pelvic mass lesion or lymphadenopathy. There is no pelvic fluid. Mild diffuse spondylosis. IMPRESSION: Partial small bowel obstruction. The transition zone in the right lower quadrant. No bowel perforation or pneumatosis intestinalis. Electronically signed on Apr 09, 2018 12:59:42 AM EST by: Joan Tabares M.D., Certified by ABR, MSK, Neuroradiology 04/09/18 01:[address] Florian, who is aware and agrees with plan. Accepts pt in to his service. [facility] will go to [facility] observation for partial small bowel obstruction. Requests Dr. Mckeon, Dr. Benitez, and Dr. Faye on consult. \ - Lab Interpretations I have reviewed the lab results: Yes - RAD Interpretation Hand Rug Cleaner: ED Physician, Radiologist - EKG Interpretation Interpreted by ED Physician: Yes Type: 12 lead EKG - Scribe Statement The provider has reviewed the documentation as recorded by the Joanna Mares Provider Scribe Attestation: All medical record entries made by the Scribe were at my direction and personally dictated by me. I have reviewed the chart and agree that the record accurately reflects my personal performance of the history, physical exam, medical decision making, and the department course for this patient. I have also personally directed, reviewed, and agree with the discharge instructions and disposition. Disposition/Present on Arrival - Present on Arrival Any Indicators Present on Arrival: No History of DVT/PE: Yes History of Uncontrolled Diabetes: No Urinary Catheter: No History of Decub. Ulcer: No History Surgical Site Infection Following: None - Disposition Have Diagnosis and Disposition been Completed?: Yes Diagnosis: Partial small bowel obstruction Disposition: HOSPITALIZED Disposition Time: 01:07 Condition: GOOD
[2018-04-08] MEDS ORDERED: Morphine 4 mg/ml ISec IVP STA (21:42)
[2018-04-08] MEDS: Sodium Chloride 0.9% 1,000 ML IV SCH (22:13)
[2018-04-08 22:43] LABS: HEMOGLOBIN 8.7 g/dL (12.0-16.0); MEAN CELL VOLUME 85.4 fl (80.0-105.0); MEAN CORPUSCULAR HEMOGLOBIN 26.4 pg (25.0-35.0); MEAN PLATELET VOLUME 11.4 fl (7.0-11.0); RBC 3.29 10^6/uL (3.5-6.1)
[2018-04-08 22:53] LABS: INR 1.09; PARTIAL THROMBOPLASTIN TIME 29.8 Seconds (25.1-36.5); PROTHROMBIN TIME 12.4 SECONDS (9.4-12.5)
[2018-04-08 22:56] LABS: ALB/GLOB RATIO 0.8 (1.1-1.8)
[2018-04-09] MEDS ORDERED: Morphine 2 mg/ml ISec IVP STA (00:25)
--- NOTE | 2018-04-09 01:39 | CP.PCM.CON ---
History of Present Illness - History of Present Illness History of Present Illness: General Surgery Dr. Mckeon 62 y/o F w/ PMHx of CAD, CHF, HTN, DVT/PE, rectal ca presents to the ED at direction of PMD for abd pain and anemia. 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 pain described as crampy, gas pains. Pt admits to similar pains in the past that usually self-resolve. Pt admits to concurrent decreased ostomy output as well as decreased flatus. Pt reports recent constipation w/ formed, hard stool in loop colostomy. Pt denies F/C, CP, SOB, N/V, dysuria. Preliminary read on CT A/P performed in ED concerning for pSBO w/ RLQ, for which surgery consulted. PMHx: see above, COPD, DM2, anemia Meds: reviewed in chart, *Eliquis* NKDA PSHx: appendectomy, cardiac stents, loop colostomy (2013) SHx: denies tobacco, EtOH, drug use FHx: noncontributory Review of Systems - Review of Systems All systems: reviewed and no additional remarkable complaints except (see HPI) Past Patient History - Infectious Disease Hx of Infectious Diseases: None - Tetanus Immunizations Tetanus Immunization: Unknown - Past Social History Smoking Status: Never Smoked - CARDIAC Hx Congestive Heart Failure: Yes Hx Hypertension: Yes - PULMONARY Hx Respiratory Disorders: Yes Hx Bronchitis: Yes Hx Chronic Obstructive Pulmonary Disease (COPD): Yes Hx Pulmonary Embolism: Yes - NEUROLOGICAL Hx Neurological Disorder: Yes Hx Dizziness: Yes - HEENT Hx Macular Degeneration: No - RENAL Hx Renal Failure: Yes - ENDOCRINE/METABOLIC Hx Diabetes Mellitus Type 2: Yes - HEMATOLOGICAL/ONCOLOGICAL Hx Blood Disorders: No - INTEGUMENTARY Hx Dermatological Problems: No - MUSCULOSKELETAL/RHEUMATOLOGICAL Hx Falls: No - GASTROINTESTINAL Hx Gastrointestinal Disorders: Yes (RECTAL CA WITH COLOSTOMY,GI BLEED) - GENITOURINARY/GYNECOLOGICAL Hx Genitourinary Disorders: Yes (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,UTI) - PSYCHIATRIC Hx Psychophysiologic Disorder: Yes Hx Anxiety: Yes Hx Substance Use: No - SURGICAL HISTORY Hx Appendectomy: Yes Hx Coronary Stent: Yes Other/Comment: colostomy - ANESTHESIA Hx Anesthesia: Yes Hx Anesthesia Reactions: No Hx Malignant Hyperthermia: No Meds Allergies/Adverse Reactions: Allergies Allergy/AdvReac Type Severity Reaction Status Date / Time No Known Allergies Allergy Verified 04/08/18 21:16 - Medications Medications: Current Medications Sodium Chloride (Sodium Chloride 0.9%) 1,000 mls @ 100 mls/hr IV .Q10H JR Last Admin: 04/08/18 22:13 Dose: 100 mls/hr Physical Exam - Constitutional Appears: Non-toxic, No Acute Distress - Head Exam Head Exam: NORMAL INSPECTION - Eye Exam Eye Exam: Normal appearance - ENT Exam ENT Exam: Mucous Membranes Moist - Respiratory Exam Respiratory Exam: NORMAL BREATHING PATTERN. absent: Accessory Muscle Use, Respiratory Distress - Cardiovascular Exam Cardiovascular Exam: absent: Bradycardia, Tachycardia - GI/Abdominal Exam GI & Abdominal Exam: Distended (obese), Hernia (parastomal and ventral wall), Soft. absent: Guarding, Rebound Additional comments: loop colostomy w/ hard, formed stool stoma pink, patent - Extremities Exam Extremities exam: Positive for: normal inspection - Neurological Exam Neurological exam: Alert, Oriented x3 - Psychiatric Exam Psychiatric exam: Normal Affect, Normal Mood - Skin Skin Exam: Dry, Intact, Normal Color, Warm Results - Vital Signs Recent Vital Signs: Last Vital Signs Temp 98.5 F 04/08/18 21:26 Pulse 73 04/08/18 23:46 Resp 18 04/08/18 23:46 BP 144/63 04/08/18 23:46 Pulse Ox 96 04/08/18 23:46 - Labs Result Diagrams: 04/08/18 22:30 04/08/18 22:30 Labs: Laboratory Results - last 24 hr 04/08/18 04/08/18 04/08/18 22:30 22:30 22:30 WBC 6.0 RBC 3.29 L Hgb 8.7 L Hct 28.1 L MCV 85.4 MCH 26.4 MCHC 31.0 RDW 18.0 H Plt Count 295 MPV 11.4 H PT 12.4 INR 1.09 APTT 29.8 Sodium 138 Potassium 4.9 Chloride 104 Carbon Dioxide 27 Anion Gap 12 BUN 94 H Creatinine 2.9 H Est GFR ( Amer) 20 Est GFR (Non-Af Amer) 16 Random Glucose 218 H Calcium 9.0 Total Bilirubin 0.2 AST 23 ALT 18 Alkaline Phosphatase 152 H D Total Protein 6.7 Albumin 3.0 Globulin 3.7 Albumin/Globulin Ratio 0.8 L Lipase 355 H - Imaging and Cardiology CT scan - abdomen Status: Image reviewed by me, Report reviewed by me Assessment & Plan - Assessment and Plan (Free Text) Assessment: 62 y/o F w/ loop colostomy 2/2 rectal adenocarcinoma c/o abd pain and anemia found on outpatient work up CT scan concerning for partial SBO Plan: - NPO/IVF - monitor ostomy output - non-narcotic pain management - zofran/reglan for nausea - NGT if vomiting develops - stool softeners - encourage OOB to chair/Amb - f/u GI recs - f/u heme/onc recs Will discuss w/ Dr. Mike Wilkinson DO PGY3
[2018-04-09] MEDS ORDERED: Morphine 4 mg/ml ISec IVP STA ×2 (03:26→10:35)
[2018-04-09] MEDS: Sodium Chloride 0.9% 1,000 ML IV SCH ×2 (08:00→18:11)
--- NOTE | 2018-04-09 08:15 | CP.PCM.CON ---
<Jung Alaniz - Last Filed: 04/09/18 10:38> History of Present Illness - History of Present Illness History of Present Illness: PGY-2 GI consult note for Dr Benitez Mrs Guevara is a 62 year old female with a PMHx of CAD, CHF, DM2, HTN, CKD, DVT/PE on eliquis, w/ loop colostomy 2/2 rectal adenocarcinoma presents to the ED sent from [facility] at direction of PMD for abd pain and low hemoglobin. She reports the pain began 24 hours prior to arrival to ED, she describes the pain as crampy, gas pains. She admits to similar pains in the past that usually self-resolve. Patient admits to concurrent decreased ostomy output as well as decreased flatus. She reports recent constipation w/ formed, hard stool in loop colostomy. She denies F/C, CP, SOB, N/V, dysuria. PMD: Dr. Hanny Florian PMHx: CAD, CHF, DM2, HTN, CKD, DVT/PE on eliquis, w/ loop colostomy 2/2 rectal adenocarcinoma Meds: reviewed in chart, *Eliquis* Allergies: NKDA PSHx: appendectomy, cardiac stents, loop colostomy (2013) SHx: denies tobacco, EtOH, drug use FHx: noncontributory Review of Systems - Constitutional Constitutional: absent: Chills, Fever - EENT Eyes: absent: Change in Vision - Cardiovascular Cardiovascular: absent: Chest Pain - Respiratory Respiratory: absent: Cough, Dyspnea - Gastrointestinal Gastrointestinal: Abdominal Pain, Bloating, Constipation. absent: Diarrhea - Genitourinary Genitourinary: absent: Dysuria Past Patient History - Infectious Disease Hx of Infectious Diseases: None - Tetanus Immunizations Tetanus Immunization: Unknown - Past Social History Smoking Status: Never Smoked - CARDIAC Hx Congestive Heart Failure: Yes Hx Hypertension: Yes - PULMONARY Hx Respiratory Disorders: Yes Hx Bronchitis: Yes Hx Chronic Obstructive Pulmonary Disease (COPD): Yes Hx Pulmonary Embolism: Yes - NEUROLOGICAL Hx Neurological Disorder: Yes Hx Dizziness: Yes - HEENT Hx Macular Degeneration: No - RENAL Hx Renal Failure: Yes - ENDOCRINE/METABOLIC Hx Diabetes Mellitus Type 2: Yes - HEMATOLOGICAL/ONCOLOGICAL Hx Blood Disorders: No - INTEGUMENTARY Hx Dermatological Problems: No - MUSCULOSKELETAL/RHEUMATOLOGICAL Hx Falls: No - GASTROINTESTINAL Hx Gastrointestinal Disorders: Yes (RECTAL CA WITH COLOSTOMY,GI BLEED) - GENITOURINARY/GYNECOLOGICAL Hx Genitourinary Disorders: Yes (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,UTI) - PSYCHIATRIC Hx Psychophysiologic Disorder: Yes Hx Anxiety: Yes Hx Substance Use: No - SURGICAL HISTORY Hx Appendectomy: Yes Hx Coronary Stent: Yes Other/Comment: colostomy - ANESTHESIA Hx Anesthesia: Yes Hx Anesthesia Reactions: No Hx Malignant Hyperthermia: No Meds Allergies/Adverse Reactions: Allergies Allergy/AdvReac Type Severity Reaction Status Date / Time No Known Allergies Allergy Verified 04/08/18 21:16 - Medications Medications: Current Medications Sodium Chloride (Sodium Chloride 0.9%) 1,000 mls @ 100 mls/hr IV .Q10H JR Last Admin: 04/08/18 22:13 Dose: 100 mls/hr Physical Exam - Additional Findings Additional findings: - Constitutional Appears: Non-toxic, No Acute Distress - Head Exam Head Exam: NORMAL INSPECTION - Eye Exam Eye Exam: Normal appearance - ENT Exam ENT Exam: Mucous Membranes Moist - Respiratory Exam Respiratory Exam: NORMAL BREATHING PATTERN. absent: Accessory Muscle Use, Respiratory Distress - Cardiovascular Exam Cardiovascular Exam: absent: Bradycardia, Tachycardia - GI/Abdominal Exam GI & Abdominal Exam: Distended (obese), Hernia (parastomal and ventral wall), Soft. absent: Guarding, Rebound Additional comments: loop colostomy w/ hard, formed stool stoma pink, patent - Extremities Exam Extremities exam: Positive for: normal inspection - Neurological Exam Neurological exam: Alert, Oriented x3 - Psychiatric Exam Psychiatric exam: Normal Affect, Normal Mood - Skin Skin Exam: Dry, Intact, Normal Color, Warm Results - Vital Signs Recent Vital Signs: Last Vital Signs Temp 98.5 F 04/08/18 21:26 Pulse 65 04/09/18 06:44 Resp 17 04/09/18 06:44 BP 143/71 04/09/18 06:44 Pulse Ox 97 04/09/18 06:44 - Labs Result Diagrams: 04/08/18 22:30 04/08/18 22:30 Labs: Laboratory Results - last 24 hr 04/08/18 04/08/18 04/08/18 22:30 22:30 22:30 WBC 6.0 RBC 3.29 L Hgb 8.7 L Hct 28.1 L MCV 85.4 MCH 26.4 MCHC 31.0 RDW 18.0 H Plt Count 295 MPV 11.4 H PT 12.4 INR 1.09 APTT 29.8 Sodium 138 Potassium 4.9 Chloride 104 Carbon Dioxide 27 Anion Gap 12 BUN 94 H Creatinine 2.9 H Est GFR ( Amer) 20 Est GFR (Non-Af Amer) 16 Random Glucose 218 H Calcium 9.0 Total Bilirubin 0.2 AST 23 ALT 18 Alkaline Phosphatase 152 H D Total Protein 6.7 Albumin 3.0 Globulin 3.7 Albumin/Globulin Ratio 0.8 L Lipase 355 H Assessment & Plan - Assessment and Plan (Free Text) Plan: Mrs Guevara is a 62 year old female with a PMHx of CAD, diastolic CHF, DM2, HTN, CKD, DVT/PE on eliquis, w/ loop colostomy 2/2 rectal adenocarcinoma presents to the ED sent from [facility] at direction of PMD for abd pain and low hemoglobin: Partial Small Bowel Obstruction Loop Colostomy 2/2 Rectal Adenocarcinoma Non-obstructing Paracolostomy Hernia -CT scan as read by Dr Benitez shows a paracolostomy hernia that does not appear to be obstructed -rectal CA (2013) s/p chemoradiation, colostomy, PET scan 2017 - no systemic disease, CEA 09/2017 4.4, CEA 02/2018 5.4 -iron studies from last month indicative of anemia of chronic disease/anemia of chronic kidney disease, Hgb ranges from 8 to 10 over the last two years, no evidence of ed bleeding at this time, however GI bleed cannot be ruled out -would continue OAC consider previous b/l PE and no signs of major bleed at this time. However, she must be monitored closely -continue PPI, NPO/IVF, NGT if vomiting develops, stool softeners -monitor ostomy site output for melena, bloody -very complex, non-compliant patient currently with acute on chronic conditions. She is at very high risk for intraoperative complication. Will need to discuss with primary, anesthesia, cardiology, pulmonology before any endoscopic proc edures to be done. Seen and discussed with Dr Benitez <Gita Benitez V - Last Filed: 04/09/18 19:20> Meds - Medications Medications: Current Medications Clonidine HCl (Catapres Tts1 0.1 Mg/24 Hr) 1 patch TD Q7D@1000 ONE Stop: 04/16/18 13:51 Enoxaparin Sodium (Lovenox) 40 mg SC DAILY [facility]; Protocol Hydralazine HCl (Apresoline) 10 mg IVP Q6 PRN PRN Reason: Systolic Blood Pressure Sodium Chloride (Sodium Chloride 0.9%) 1,000 mls @ 100 mls/hr IV .Q10H JR Last Admin: 04/09/18 18:11 Dose: 100 mls/hr Metronidazole (Flagyl) 500 mg in 100 mls @ 100 mls/hr IVPB Q8 JR; Protocol Last Admin: 04/09/18 18:10 Dose: 100 mls/hr Ceftriaxone Sodium (Rocephin 1 Gram Ivpb) 1 gm in 100 mls @ 100 mls/hr IVPB DAILY [facility]; Protocol Insulin Human Regular (Humulin R Low) 0 units SC ACHS [facility]; Protocol Last Admin: 04/09/18 18:10 Dose: Not Given Pantoprazole Sodium (Protonix Inj) 40 mg IVP DAILY [facility] Results - Vital Signs Recent Vital Signs: Last Vital Signs Temp 97.9 F 04/09/18 14:00 Pulse 65 04/09/18 17:00 Resp 17 04/09/18 17:00 BP 144/94 H 04/09/18 14:00 Pulse Ox 98 04/09/18 14:00 - Labs Result Diagrams: 04/08/18 22:30 04/08/18 22:30 Labs: Laboratory Results - last 24 hr 04/08/18 04/08/18 04/08/18 22:30 22:30 22:30 WBC 6.0 RBC 3.29 L Hgb 8.7 L Hct 28.1 L MCV 85.4 MCH 26.4 MCHC 31.0 RDW 18.0 H Plt Count 295 MPV 11.4 H PT 12.4 INR 1.09 APTT 29.8 Sodium 138 Potassium 4.9 Chloride 104 Carbon Dioxide 27 Anion Gap 12 BUN 94 H Creatinine 2.9 H Est GFR ( Amer) 20 Est GFR (Non-Af Amer) 16 POC Glucose (mg/dL) Random Glucose 218 H Calcium 9.0 Total Bilirubin 0.2 AST 23 ALT 18 Alkaline Phosphatase 152 H D Total Protein 6.7 Albumin 3.0 Globulin 3.7 Albumin/Globulin Ratio 0.8 L Lipase 355 H 04/09/18 18:08 WBC RBC Hgb Hct MCV MCH MCHC RDW Plt Count MPV PT INR APTT Sodium Potassium Chloride Carbon Dioxide Anion Gap BUN Creatinine Est GFR ( Amer) Est GFR (Non-Af Amer) POC Glucose (mg/dL) 163 H Random Glucose Calcium Total Bilirubin AST ALT Alkaline Phosphatase Total Protein Albumin Globulin Albumin/Globulin Ratio Lipase Attending/Attestation - Attestation I have personally seen and examined this patient.: Yes I have fully participated in the care of the patient.: Yes I have reviewed all pertinent clinical information: Yes Notes (Text): This is an addendum to GI consult report dictated by the Static Balancer.The patient was seen and evaluated earlier. Medical records, lab studies, imagings were reviewed. Last 24 hours events reviewed. Agreed with the above treatment plan as outlined in Static Balancer 's notes with the addition of the following This 62 year old patient with multiple comorbidities: morbid obesity, pulmonary hypertension, mostly home-bound Status post colon resection colostomy Admitted with abdominal pain and anemia Patient appears to have paracolostomy hernia Patient did not have colonoscopy post surgery Patient refused multiple times workup Also high risk History of pulmonary hypertension On examination abdomen soft Bowl sounds normal colostomy in place Positive hernia Would recommend pulmonary evaluation, optimization Will discuss with the PMD and oncology regarding GI workup 04/09/18 19:15
--- NOTE | 2018-04-09 08:37 | RAD ---
Date of service: 04/08/2018 HISTORY: abdominal pain COMPARISON: 03/16/2018 FINDINGS: LUNGS: No active pulmonary disease. PLEURA: No significant pleural effusion identified, no pneumothorax apparent. CARDIOVASCULAR: Aortic calcifications Moderate cardiomegaly no pulmonary vascular congestion. OSSEOUS STRUCTURES: No significant abnormalities. VISUALIZED UPPER ABDOMEN: Normal. OTHER FINDINGS: None. IMPRESSION: No active disease.
--- NOTE | 2018-04-09 11:29 | CT ---
Date of service: 04/08/2018 PROCEDURE: CT Abdomen and Pelvis. HISTORY: Pain COMPARISON: Comparison made with prior CT scan of the abdomen pelvis 02/10/2018. TECHNIQUE: Contiguous axial images of the abdomen and pelvis performed without oral or intravenous contrast material. Additional 2D sagittal and coronal reformats generated. Radiation dose: Total exam DLP = 1635.43 mGy-cm. This CT exam was performed using one or more of the following dose reduction techniques: Automated exposure control, adjustment of the mA and/or kV according to patient size, and/or use of iterative reconstruction technique. Note that the CT examination is limited by large body habitus. FINDINGS: LOWER THORAX: Mild atelectasis passive/dependent type atelectasis both posterior lower lung jessica. There also appears to be localized scarring in the left lung base/lingular region.. Heart is enlarged. No significant pericardial effusion. LIVER: Unremarkable. No gross lesion or ductal dilatation. GALLBLADDER AND BILE DUCTS: Gallbladder appears incompletely distended. PANCREAS: Pancreas slightly atrophic and fatty replaced. No obvious pancreatic masses or collections. SPLEEN: Unremarkable. No splenomegaly. ADRENALS: Again noted is a low-attenuation left adrenal lesion that measures approximately 2.1 cm. This probably represents a adrenal adenoma. Normal right adrenal gland. KIDNEYS AND URETERS: Kidneys exhibit relatively symmetric size. No evidence of nephrolithiasis or hydronephrosis.. Previously noted 2.6 cm high attenuation lesion midpole right kidney is not appreciated on this study. Follow-up renal ultrasound could be performed for further evaluation. BLADDER: Grossly unremarkable. REPRODUCTIVE: Uterus is not definitively identified on this though may be compressed due to distended urinary bladder APPENDIX: Appendix is not seen with certainty however no definitive radiographic evidence of acute appendicitis. BOWEL: Evaluation of the bowel slightly limited due to the lack of oral contrast material. Mid and left parasagittal of large ventral wall hernia containing a portion of stomach as well as a segment of the distal transverse colon and several loops of small bowel again seen.. There is mild distension of one of the loops of small bowel within this hernia extending down to the right lower quadrant of the abdomen. Rule out partial or intermittent small bowel obstruction. Stool and air seen throughout the right colon.. The left colon is collapsed. PERITONEUM: No evidence of free intraperitoneal air. No free or loculated fluid collections. Large ventral wall hernia as detailed above. There is a 2nd smaller ventral wall hernia left lateral lower pelvis that contains mesenteric fat. LYMPH NODES: Unremarkable. No enlarged lymph nodes. VASCULATURE: In situ IVC filter. No aortic aneurysm. Mild aortic atherosclerotic calcification or mural plaque present. BONES: Multilevel degenerative spondylosis of the lower thoracic and lumbar spine. OTHER FINDINGS: None. IMPRESSION: There is a large ventral wall hernia containing stomach a segment of the distal transverse colon as well as several loops of small bowel 1 of which is distended and extends into the right lower quadrant of the abdomen. Rule out partial and or intermittent small bowel obstruction. There is a 2nd smaller ventral wall hernia left lateral lower pelvis that contains mesenteric fat. Stable appearing left adrenal lesion likely representing adenoma See above discussion for additional findings and details.
--- NOTE | 2018-04-09 12:29 | CARD ---
APPROVED REPORT Date of service: 04/08/2018 EKG Measurement Heart [id number] <Conclusion> Normal sinus rhythm Normal ECG
--- NOTE | 2018-04-09 12:37 | CP.PCM.CON ---
History of Present Illness - History of Present Illness History of Present Illness: Nephrology Consultation Note: Assessment: stable SBO Acute Kidney Injury (N17.9) likely pre-renal state left adrenal adenoma, Rt renal hyperdense cyst chronic hypercapnic respi failure Diabetic chronic Kidney Disease (E11.22) Hypertensive Chronic Kidney Disease (I12.9) Chronic Kidney Disease (N18.3) Stage 3 with 2.4 gm proteinuria (R80.9) likely due to DM/HTN/Obesity Anemia Vit D def morbid obesity, CAD s/p stent, COPD/SUMMER, rectal ca s/p colostomy Plan No acute need for renal replacement therapy at this time. . Hypertension control with meds as ordered. Maintain hemodynamics stable. Avoid hypotension. Patient not on ACEI/ARB due to recent SHELBI Monitor Input/Output, daily weights and renal function with basic metabolic panel continue with IVF pulmonary and surgery following defer management of anemia to heme/onc. due to hx of malignancy, will defer use of ESAs. Adrenal adenoma work up with plasma renin/aldosterone, plasma metanephrine NEGATIVE. outpt 1 mg dexa suppression test repeat renal sono in 6 months to assess her Rt renal cyst Dose meds/antibiotics for reduced GFR. Avoid fleets enema/magnesium based laxatives. Avoid nephrotoxins/NSAIDs/ iodinated contrast (unless needed emergently) Glycemic control Further work up/management as per primary team Thanks for allowing me to participate in care of your patient. Will follow patient with you. Please call if any Qs. had d/w team Dr Dae Dawn Office: [phone] Chief Complaint; abdomen pain Reason for consult: Acute Kidney Injury, CKD 3 HPI: Pt is a 62 F with hx of diabetes Mellitus (15 years), hypertension (years), CKD 3 with baseline cr 1.2-1.3 with AKIs, morbid obesity, CAD s/p stent, COPD/SUMMER on CPAP, rectal ca s/p colostomy presented with complaints of abdomen pain with nausea/vomiting. renal consult for CKD and SHELBI management. pt has no urine complaints. found to have partial SBO Denies OTC/herbal meds or NSAIDs No recent iodinated contrast exposure. No obvious episodes of low BP. ROS: c/o pain abdomen with nausea/vomiting. feels sleepy. no SOB. rest all other negative. denies urine complaints. reports decreased oral intake Physical Examination: General Appearance: Comfortable, co-operative . morbidly obese. ill appearing Vitals reviewed and noted as below Head; Atraumatic, normocephalic ENT: normal oral mucosa/dry. no rash/ulcer EYES: Pupils are equal, round and reactive to light accommodation. Eye muscles and extraocular movement intact. Sclera is anicteric. Neck; supple no lymphadenopathy, no thyromegaly or bruit Lungs: Normal respiratory rate/effort. Breath sounds bilateral equal, diminished at bases Heart: normal rate. s1s2 normal. No rub or gallop. Extremities: 2+ edema. No varicose veins Neurological: Patient is bit sleepy but oriented to person, place and time. No focal deficit. Strength bilateral appropriate and equal Skin: Warm and dry. Normal turgor. No rash. Palpitation: Normal elasticity for age Abdomen: Abdomen is soft. Bowel sounds +. There is no abdominal tenderness, no guarding/rigidity no organomegaly. has colostomy and ventral hernia Psych: normal insight and normal affect/mood MSK: no joint tenderness or swelling. Digits and nails normal, no deformity : kidney or bladder not palpable Labs/imaging reviewed. Past medical history, past surgical history, family history, social history, allergy reviewed and noted as below Family hx: no hx of CKD. Rest non-contributory PET CT 04/2017: neg CT abdomen: left adrenal adenoma 1.9 cm Rt kidney 2.6 cm hyperdense cyst UA 100 protein, neg for blood renin and roma low, metanehrine WNL PTH 133 Vit D 27 ANCA neg, K/L ratio WNL Past Patient History - Infectious Disease Hx of Infectious Diseases: None - Tetanus Immunizations Tetanus Immunization: Unknown - Past Social History Smoking Status: Never Smoked - CARDIAC Hx Congestive Heart Failure: Yes Hx Hypertension: Yes - PULMONARY Hx Respiratory Disorders: Yes Hx Bronchitis: Yes Hx Chronic Obstructive Pulmonary Disease (COPD): Yes Hx Pulmonary Embolism: Yes - NEUROLOGICAL Hx Neurological Disorder: Yes Hx Dizziness: Yes - HEENT Hx Macular Degeneration: No - RENAL Hx Renal Failure: Yes - ENDOCRINE/METABOLIC Hx Diabetes Mellitus Type 2: Yes - HEMATOLOGICAL/ONCOLOGICAL Hx Blood Disorders: No - INTEGUMENTARY Hx Dermatological Problems: No - MUSCULOSKELETAL/RHEUMATOLOGICAL Hx Falls: No - GASTROINTESTINAL Hx Gastrointestinal Disorders: Yes (RECTAL CA WITH COLOSTOMY,GI BLEED) - GENITOURINARY/GYNECOLOGICAL Hx Genitourinary Disorders: Yes (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,UTI) - PSYCHIATRIC Hx Psychophysiologic Disorder: Yes Hx Anxiety: Yes Hx Substance Use: No - SURGICAL HISTORY Hx Appendectomy: Yes Hx Coronary Stent: Yes Other/Comment: colostomy - ANESTHESIA Hx Anesthesia: Yes Hx Anesthesia Reactions: No Hx Malignant Hyperthermia: No Meds Allergies/Adverse Reactions: Allergies Allergy/AdvReac Type Severity Reaction Status Date / Time No Known Allergies Allergy Verified 04/08/18 21:16 - Medications Medications: Current Medications Sodium Chloride (Sodium Chloride 0.9%) 1,000 mls @ 100 mls/hr IV .Q10H JR Last Admin: 04/09/18 08:00 Dose: 100 mls/hr Results - Vital Signs Recent Vital Signs: Last Vital Signs Temp 98.5 F 04/08/18 21:26 Pulse 65 04/09/18 06:44 Resp 17 04/09/18 06:44 BP 143/71 04/09/18 06:44 Pulse Ox 97 04/09/18 06:44 - Labs Result Diagrams: 04/08/18 22:30 04/08/18 22:30 Labs: Laboratory Results - last 24 hr 04/08/18 04/08/18 04/08/18 22:30 22:30 22:30 WBC 6.0 RBC 3.29 L Hgb 8.7 L Hct 28.1 L MCV 85.4 MCH 26.4 MCHC 31.0 RDW 18.0 H Plt Count 295 MPV 11.4 H PT 12.4 INR 1.09 APTT 29.8 Sodium 138 Potassium 4.9 Chloride 104 Carbon Dioxide 27 Anion Gap 12 BUN 94 H Creatinine 2.9 H Est GFR ( Amer) 20 Est GFR (Non-Af Amer) 16 Random Glucose 218 H Calcium 9.0 Total Bilirubin 0.2 AST 23 ALT 18 Alkaline Phosphatase 152 H D Total Protein 6.7 Albumin 3.0 Globulin 3.7 Albumin/Globulin Ratio 0.8 L Lipase 355 H
[2018-04-09 17:38] VITALS: BMI 53.4
[2018-04-09] MEDS ORDERED: Influenza Vaccine 60 mcg/0.5 mL SYR (4YR UP) IM ONE (17:38)
[2018-04-09] MEDS ORDERED: Pneumococcal 23-Valent Vaccine IM ONE (17:38)
[2018-04-09] MEDS: metroNIDAZOLE IV 500 mg/100 ml 500 MG/100 ML BAG IVPB SCH ×2 (18:10→21:27)
[2018-04-09] MEDS: Insulin Reg-LOW-Coverage SC SCH ×2 (18:10→22:10)
[2018-04-09] MEDS ORDERED: Oxycodone/Acetaminophen 5/325 mg Tab PO ONE (23:53)
[2018-04-10] MEDS ORDERED: Morphine 2 mg/ml ISec IVP ONE (00:27)
[2018-04-10] MEDS: metroNIDAZOLE IV 500 mg/100 ml 500 MG/100 ML BAG IVPB SCH ×3 (05:22→22:16)
[2018-04-10] MEDS: Sodium Chloride 0.9% 1,000 ML IV SCH ×2 (05:29→14:34)
--- NOTE | 2018-04-10 06:48 | CON ---
DATE: 04/09/2018 PULMONARY CONSULTATION REFERRING PHYSICIAN: Elroy Florian MD REASON FOR CONSULTATION: Chronic obstructive lung disease, hypoventilation syndrome, morbid obesity, admitted with abdominal pain. HISTORY OF PRESENT ILLNESS: This is a 62-year-old female well known to me from previous admission. She is morbidly obese, hypoventilation syndrome, probably have sleep apnea syndrome, coronary artery disease, history of DVT, pulmonary embolism, history of rectal carcinoma, status post resection, has a colostomy, mostly bedridden, was at subacute facility, has severe abdominal pain, brought into emergency room and presently under observation. She is lying in the bed on supplemental oxygen. No hemoptysis. No hematemesis. No hematuria. No diarrhea reported. PAST MEDICAL HISTORY: As per history of present illness. ALLERGIES: NONE KNOWN. SOCIAL HISTORY: Deny any smoking or alcohol use. FAMILY HISTORY: No significant cardiopulmonary disease reported. MEDICATIONS: She is on hydralazine 10 mg every 6 hours p.r.n., also clonidine patch t.i.d., Flagyl 500 mg every 8 hours, insulin coverage, Lovenox 40 mg subcutaneously daily, Protonix 40 mg daily, Rocephin 1 g daily, and IV fluid normal saline 100 mL per hour. REVIEW OF SYSTEMS: No headache. No rhinitis, suspected sleep apnea syndrome. Use BiPAP. Has abdominal pain mostly epigastric area. Trace leg swelling. PHYSICAL EXAMINATION: GENERAL: Mild distress secondary to abdominal pain. VITAL SIGNS: Temperature is 98, heart rate is 67, respiratory rate is 18, blood pressure 144/94, and pulse ox is 98% on nasal cannula. HEENT: Moist mucous membranes. Small oral cavity. Crowded airway. NECK: Short thick neck. LUNGS: Has a fair airflow with rhonchi. HEART: S1 and S2. ABDOMEN: Has a colostomy midepigastric area tenderness. EXTREMITIES: Trace edema. NEUROLOGIC: Awake, alert and follow simple commands. LABORATORY DATA: Shows hemoglobin 8.7, hematocrit 28.1, WBC 6, platelet count is 295. INR 1.09. PTT is 30. Sodium 138, potassium 4.9, chloride 104, bicarbonate 27, BUN 94, creatinine 2.9, glucose 163, calcium 9, total bili 0.2, AST 23, ALT 18, and alk phos is 152. Albumin is 3. Lipase is 355. CT of the abdomen and pelvis done on admission shows there is a large central wall hernia containing stomach, a segment of the distal transverse colon as well as several loops of small bowel one of which is distended and extended into the right lower quadrant of the abdomen, rule out partial or intubated obstruction. There is also a second smaller ventral hernia left lateral, lower pelvic that contains mesenteric fat, stable appearing left adrenal lesion likely representing adenoma. Had a chest x-ray done, which shows no active disease. IMPRESSION AND PLAN: Chronic respiratory failure with CO2 retention, hypoxemia, hypoventilation syndrome, morbid obesity, history of deep vein thrombosis and pulmonary embolism, coronary artery disease, history of colorectal cancer requiring surgery and colostomy, history of radiation and chemotherapy, has a ventral hernia, pancreatitis. Case discussed with Dr. Florian. Spoke to nursing staff. We will place on bilevel positive airway pressure while sleeping. Keep head at 45 degrees. Surgical and GI consult. Gastric prophylaxis, anticoagulation. Follow up ABG in the morning. Thank you and we will follow with you. Pamela Ayala MD
[2018-04-10 07:06] LABS: BASO # 0.02 K/mm3 (0.0-2.0); BASO % 0.2 % (0.0-3.0); EOS # 0.1 (0.0-0.7); EOS % 1.7 % (1.5-5.0); GRAN # 6.03 (1.4-6.5); GRAN % 72.2 % (50.0-68.0); HEMOGLOBIN 8.7 g/dL (12.0-16.0); LYMPH # 1.8 (1.2-3.4); MEAN CELL VOLUME 87.7 fl (80.0-105.0); MEAN CORPUSCULAR HEMOGLOBIN 26.2 pg (25.0-35.0); MEAN CORPUSCULAR HGB CONC 29.9 g/dl (31.0-37.0); MONO # 0.3 (0.1-0.6); MONO % 3.9 % (1.0-6.0); RBC 3.32 10^6/uL (3.5-6.1); RED CELL DISTRIBUTION WIDTH 18.2 % (11.5-14.5); WHITE BLOOD COUNT 8.4 10^3/uL (4.5-11.0)
[2018-04-10] MEDS: Arformoterol 15 mcg/2 ml Inh Sol IH SCH ×2 (07:32→19:53)
[2018-04-10] MEDS: Budesonide 0.5 mg/2 ml Inhal Susp UD IH SCH ×2 (07:33→19:53)
[2018-04-10] MEDS: Insulin Reg-LOW-Coverage SC SCH ×4 (08:16→22:09)
[2018-04-10] MEDS ORDERED: HYDROmorphone 2 mg/ml ISec IVP PRN (08:29)
[2018-04-10 09:30] LABS: IRON 40 ug/dL (45-180)
[2018-04-10 09:39] LABS: % IRON SATURATION 24 % (20-55); TOTAL IRON BINDING CAPACITY 166 ug/dL (265-497)
--- NOTE | 2018-04-10 09:49 | CP.PCM.PN ---
<Jung Alaniz - Last Filed: 04/10/18 09:43> Subjective - Date & Time of Evaluation Date of Evaluation: 04/10/18 Time of Evaluation: 09:43 - Subjective Subjective: PGY-2 GI progress note for Dr Benitez Overnight patient complained of nausea - she did not have emesis - she received zofran which helped. Also had high BP and was given hydralazine. Complained of some abd pain as well and was given percocet. Today states the abdominal pain comes and goes. Denied fever, chest pain, diarrhea, emesis. Objective - Vital Signs/Intake and Output Vital Signs (last 24 hours): Temp Pulse Resp BP Pulse Ox 98.2 F 95 H 16 172/92 H 96 04/10/18 06:00 04/10/18 06:00 04/10/18 06:00 04/10/18 06:00 04/10/18 06:00 Intake and Output: 04/10/18 04/10/18 06:59 18:59 Output Total 800 Balance -800 - Medications Medications: Current Medications Arformoterol Tartrate (Brovana) 15 mcg IH [id number] [facility] Last Admin: 04/10/18 07:32 Dose: 15 mcg Budesonide (Pulmicort Respules) 0.5 mg IH [id number] [facility] Last Admin: 04/10/18 07:33 Dose: 0.5 mg Clonidine HCl (Catapres Tts1 0.1 Mg/24 Hr) 1 patch TD Q7D@1000 ONE Stop: 04/16/18 13:51 Enoxaparin Sodium (Lovenox) 40 mg SC DAILY JR; Protocol Hydralazine HCl (Apresoline) 10 mg IVP Q6 PRN PRN Reason: Systolic Blood Pressure Last Admin: 04/10/18 05:51 Dose: 10 mg Hydromorphone HCl (Dilaudid) 2 mg IVP Q4H PRN PRN Reason: Pain, severe (8-10) Sodium Chloride (Sodium Chloride 0.9%) 1,000 mls @ 100 mls/hr IV .Q10H JR Last Admin: 04/10/18 05:29 Dose: 100 mls/hr Metronidazole (Flagyl) 500 mg in 100 mls @ 100 mls/hr IVPB Q8 JR; Protocol Last Admin: 04/10/18 05:22 Dose: 100 mls/hr Ceftriaxone Sodium (Rocephin 1 Gram Ivpb) 1 gm in 100 mls @ 100 mls/hr IVPB DAILY JR; Protocol Insulin Human Regular (Humulin R Low) 0 units SC ACHS JR; Protocol Last Admin: 04/10/18 08:16 Dose: 1 unit Pantoprazole Sodium (Protonix Inj) 40 mg IVP DAILY JR - Labs Labs: 04/10/18 05:30 04/08/18 22:30 PT 12.4 SECONDS (9.4-12.5) 04/08/18 22:30 INR 1.09 04/08/18 22:30 APTT 29.8 Seconds (25.1-36.5) 04/08/18 22:30 - Additional Findings Additional findings: - Constitutional Appears: Non-toxic, No Acute Distress - Head Exam Head Exam: NORMAL INSPECTION - Eye Exam Eye Exam: Normal appearance - ENT Exam ENT Exam: Mucous Membranes Moist - Respiratory Exam Respiratory Exam: NORMAL BREATHING PATTERN. absent: Accessory Muscle Use, Respiratory Distress - Cardiovascular Exam Cardiovascular Exam: absent: Bradycardia, Tachycardia - GI/Abdominal Exam GI & Abdominal Exam: Distended (obese), Hernia (parastomal and ventral wall), Soft. absent: Guarding, Rebound Additional comments: loop colostomy w/ hard, formed stool stoma pink, patent - Extremities Exam Extremities exam: Positive for: normal inspection - Neurological Exam Neurological exam: Alert, Oriented x3 - Psychiatric Exam Psychiatric exam: Normal Affect, Normal Mood - Skin Skin Exam: Dry, Intact, Normal Color, Warm Assessment and Plan - Assessment and Plan (Free Text) Plan: Mrs Guevara is a 62 year old female with a PMHx of CAD, diastolic CHF, DM2, HTN, CKD, DVT/PE on eliquis, w/ loop colostomy 2/2 rectal adenocarcinoma presents to the ED sent from [facility] at direction of PMD for abd pain and low hemoglobin: Partial Small Bowel Obstruction Loop Colostomy 2/2 Rectal Adenocarcinoma Non-obstructing Paracolostomy Hernia -CT scan as read by Dr Benitez shows a paracolostomy hernia that does not appear to be obstructed -rectal CA (2013) s/p chemoradiation, colostomy, PET scan 2016 - no systemic disease, CEA 09/2017 4.4, CEA 02/2018 5.4 -iron studies from last month indicative of anemia of chronic disease/anemia of chronic kidney disease, Hgb ranges from 8 to 10 over the last two years, no evidence of ed bleeding at this time, however GI bleed cannot be ruled out -would continue OAC consider previous b/l PE and no signs of major bleed at this time. However, she must be monitored closely -tolerating clear liquid diet -continue PPI, IVF, NGT if vomiting develops, stool softeners -monitor ostomy site output for melena, bloody -would recommend pulmonary evaluation, optimization -very complex, non-compliant patient currently with acute on chronic conditions. She is at very high risk for intraoperative complication. Will need to discuss with primary, anesthesia, cardiology, pulmonology before any endoscopic procedures to be done. Seen and discussed with Dr Benitez <Gita Benitez V - Last Filed: 04/10/18 23:56> Objective - Vital Signs/Intake and Output Vital Signs (last 24 hours): Temp Pulse Resp BP Pulse Ox 99.3 F 125 H 21 177/69 H 96 04/10/18 18:00 04/10/18 23:10 04/10/18 18:00 04/10/18 23:10 04/10/18 06:00 Intake and Output: 04/10/18 04/11/18 18:59 06:59 Intake Total 800 Balance 800 - Medications Medications: Current Medications Amlodipine Besylate (Norvasc) 10 mg PO DAILY [facility] Last Admin: 04/10/18 11:23 Dose: Not Given Arformoterol Tartrate (Brovana) 15 mcg IH [id number] [facility] Last Admin: 04/10/18 19:53 Dose: 15 mcg Budesonide (Pulmicort Respules) 0.5 mg IH [id number] [facility] Last Admin: 04/10/18 19:53 Dose: 0.5 mg Enoxaparin Sodium (Lovenox) 40 mg SC DAILY [facility]; Protocol Last Admin: 04/10/18 11:21 Dose: 40 mg Hydralazine HCl (Apresoline) 10 mg IVP Q6 PRN PRN Reason: Systolic Blood Pressure Last Admin: 04/10/18 14:46 Dose: 10 mg Hydralazine HCl (Apresoline) 50 mg PO TID [facility] Last Admin: 04/10/18 13:36 Dose: Not Given Hydromorphone HCl (Dilaudid) 1 mg IVP Q4H PRN PRN Reason: Pain, moderate (4-7) Sodium Chloride (Sodium Chloride 0.9%) 1,000 mls @ 100 mls/hr IV .Q10H [facility] Last Admin: 04/10/18 14:34 Dose: 100 mls/hr Metronidazole (Flagyl) 500 mg in 100 mls @ 100 mls/hr IVPB Q8 [facility]; Protocol Last Admin: 04/10/18 22:16 Dose: 100 mls/hr Ceftriaxone Sodium (Rocephin 1 Gram Ivpb) 1 gm in 100 mls @ 100 mls/hr IVPB DAILY [facility]; Protocol Last Admin: 04/10/18 11:22 Dose: 100 mls/hr Insulin Human Regular (Humulin R Low) 0 units SC ACHS [facility]; Protocol Last Admin: 04/10/18 22:09 Dose: Not Given Metoprolol Succinate (Toprol Xl) 100 mg PO BRK JR Metoprolol Tartrate (Lopressor) 5 mg IV Q6H [facility] Last Admin: 04/10/18 23:10 Dose: 5 mg Ondansetron HCl (Zofran Inj) 4 mg IVP Q6H PRN PRN Reason: Nausea/Vomiting Last Admin: 04/10/18 23:09 Dose: 4 mg Pantoprazole Sodium (Protonix Inj) 40 mg IVP DAILY [facility] Last Admin: 04/10/18 11:22 Dose: 40 mg - Labs Labs: 04/10/18 17:31 04/10/18 16:40 PT 12.4 SECONDS (9.4-12.5) 04/08/18 22:30 INR 1.09 04/08/18 22:30 APTT 29.8 Seconds (25.1-36.5) 04/08/18 22:30 Attending/Attestation - Attestation I have personally seen and examined this patient.: Yes I have fully participated in the care of the patient.: Yes I have reviewed all pertinent clinical information, including history, physical exam and plan: Yes Notes (Text): This is an addendum to GI consult report dictated by the Laborer Heading.The patient was seen and evaluated earlier. Medical records, lab studies, imagings were reviewed. Last 24 hours events reviewed. Agreed with the above treatment plan as outlined in Laborer Heading 's notes with the addition of the following This 62 year old patient with multiple comorbidities: morbid obesity, pulmonary hypertension, mostly home-bound Status post colon resection colostomy Admitted with abdominal pain and anemia Patient appears to have paracolostomy hernia Patient did not have colonoscopy post surgery Patient refused multiple times workup Also high risk History of pulmonary hypertension,DVT,PE, status post rapid response today Patient is on non-invasive ventilation support would hold off any GI workup at the present time We will reevaluate once patient's condition is optimized after further discussion with pulmonary and PCP 04/10/18 23:28
[2018-04-10 09:50] LABS: ARTERIAL BLOOD GAS HCO3 25.4 mmol/L (21-28); ARTERIAL BLOOD GAS HEMOGLOBIN 8.8 g/dL (11.7-17.4); ARTERIAL BLOOD GAS O2 CAPACITY 12.2 mL/dl (16-24); ARTERIAL BLOOD GAS O2 CONTENT 12.1 ML/dl (15-23); ARTERIAL BLOOD GAS O2 SAT 98.8 % (95-98); ARTERIAL BLOOD GAS PCO2 62 mm/Hg (35-45); ARTERIAL BLOOD GAS PH 7.22 (7.35-7.45); ARTERIAL BLOOD GAS TCO2 27.3 mmol.L (22-28)
[2018-04-10] MEDS ORDERED: Metoprolol Succinate 100 mg XL Tab PO SCH (10:00)
[2018-04-10] MEDS: Enoxaparin 40 mg Syringe SC SCH (11:21)
[2018-04-10] MEDS: cefTRIAXone 1 gm 1 GM/100 ML BAG IVPB SCH (11:22)
--- NOTE | 2018-04-10 11:40 | CP.PCM.CON ---
History of Present Illness - History of Present Illness History of Present Illness: Hematology/Oncology Consultation (Dr. Faye's Service) CC: Abdominal pain/Anemia HPI: Mrs. 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 Hematology/Oncology was consulted for her history of rectal adenocarcinoma and anemia. Patient reports that her abdominal pain is diffuse, crampy/sharp, and intermittent. She denies any alleviating/aggravating factors but does endorse decreased ostomy output/flatus. Of note, her stool has been formed and hard in her colostomy bag which usually represents constipation, per patient. She denies any hematochezia, N/V/D, melena, or hematemesis. 12 point ROS outside of what has been mentioned already was reviewed and is otherwise unremarkable. PMH: As stated above PSH: Appendectomy, cardiac stents, loop colostomy (2013) Family History: Non-Contributory Social History: Denies any tobacco, alcohol or illicit drug use Allergies: NKDA Home Medications: As per MAR Review of Systems - Review of Systems Review of Systems: As stated in HPI, otherwise negative Past Patient History - Infectious Disease Hx of Infectious Diseases: None - Tetanus Immunizations Tetanus Immunization: Unknown - Past Social History Smoking Status: Never Smoked - CARDIAC Hx Cardiac Disorders: Yes (CAD) Hx Congestive Heart Failure: Yes Hx Hypercholesterolemia: Yes Hx Hypertension: Yes - PULMONARY Hx Respiratory Disorders: Yes Hx Bronchitis: Yes Hx Chronic Obstructive Pulmonary Disease (COPD): Yes - NEUROLOGICAL Hx Neurological Disorder: Yes Hx Dizziness: Yes - HEENT Hx HEENT Problems: No Hx Macular Degeneration: No - RENAL Hx Renal Failure: Yes - ENDOCRINE/METABOLIC Hx Endocrine Disorders: Yes Hx Diabetes Mellitus Type 2: Yes - HEMATOLOGICAL/ONCOLOGICAL Hx Blood Disorders: Yes Hx Cancer: Yes (COLON CA,RECTAL ADENOCARCINOMA WITH COLON RESECTION WITH COLOSTOMY.) - INTEGUMENTARY Hx Dermatological Problems: Yes Other/Comment: MASD UNDER FOLDS OF SKIN,SPECIALLY UNDER THE BREAST ,GROIN AREA. IASD IN BETWEEN BUTTOCKS ,SKIN IS RED FLUSHED. - MUSCULOSKELETAL/RHEUMATOLOGICAL Hx Musculoskeletal Disorders: Yes Hx Falls: No Hx Unsteady Gait: Yes - GASTROINTESTINAL Hx Gastrointestinal Disorders: Yes (RECTAL CA WITH COLOSTOMY,GI BLEED) - GENITOURINARY/GYNECOLOGICAL Hx Genitourinary Disorders: Yes (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,UTI) - PSYCHIATRIC Hx Psychophysiologic Disorder: Yes Hx Anxiety: Yes - SURGICAL HISTORY Hx Surgeries: Yes Hx Appendectomy: Yes Hx Coronary Stent: Yes Other/Comment: colostomy - ANESTHESIA Hx Anesthesia: Yes Hx Anesthesia Reactions: No Hx Malignant Hyperthermia: No Meds Allergies/Adverse Reactions: Allergies Allergy/AdvReac Type Severity Reaction Status Date / Time No Known Allergies Allergy Verified 04/08/18 21:16 - Medications Medications: Current Medications Amlodipine Besylate (Norvasc) 10 mg PO DAILY [facility] Last Admin: 04/10/18 11:23 Dose: Not Given Arformoterol Tartrate (Brovana) 15 mcg IH [id number] [facility] Last Admin: 04/10/18 07:32 Dose: 15 mcg Budesonide (Pulmicort Respules) 0.5 mg IH [id number] [facility] Last Admin: 04/10/18 07:33 Dose: 0.5 mg Clonidine HCl (Catapres Tts1 0.1 Mg/24 Hr) 1 patch TD Q7D@1000 ONE Stop: 04/16/18 13:51 Enoxaparin Sodium (Lovenox) 40 mg SC DAILY [facility]; Protocol Last Admin: 04/10/18 11:21 Dose: 40 mg Hydralazine HCl (Apresoline) 10 mg IVP Q6 PRN PRN Reason: Systolic Blood Pressure Last Admin: 04/10/18 05:51 Dose: 10 mg Hydralazine HCl (Apresoline) 50 mg PO TID [facility] Last Admin: 04/10/18 11:22 Dose: Not Given Hydromorphone HCl (Dilaudid) 2 mg IVP Q4H PRN PRN Reason: Pain, severe (8-10) Sodium Chloride (Sodium Chloride 0.9%) 1,000 mls @ 100 mls/hr IV .Q10H [facility] Last Admin: 04/10/18 05:29 Dose: 100 mls/hr Metronidazole (Flagyl) 500 mg in 100 mls @ 100 mls/hr IVPB Q8 [facility]; Protocol Last Admin: 04/10/18 05:22 Dose: 100 mls/hr Ceftriaxone Sodium (Rocephin 1 Gram Ivpb) 1 gm in 100 mls @ 100 mls/hr IVPB DAILY [facility]; Protocol Last Admin: 04/10/18 11:22 Dose: 100 mls/hr Iron Sucrose 100 mg/ Sodium (Chloride) 105 mls @ 210 mls/hr IVPB ONCE ONE Stop: 04/10/18 11:48 Insulin Human Regular (Humulin R Low) 0 units SC ACHS [facility]; Protocol Last Admin: 04/10/18 08:16 Dose: 1 unit Metoprolol Succinate (Toprol Xl) 100 mg PO BRK [facility] Metoprolol Tartrate (Lopressor) 5 mg IV Q6H [facility] Pantoprazole Sodium (Protonix Inj) 40 mg IVP DAILY [facility] Last Admin: 04/10/18 11:22 Dose: 40 mg Physical Exam - Constitutional Appears: Non-toxic, No Acute Distress - Head Exam Head Exam: ATRAUMATIC, NORMOCEPHALIC - Eye Exam Eye Exam: EOMI, Normal appearance - ENT Exam ENT Exam: Mucous Membranes Moist - Neck Exam Neck exam: Positive for: Full Rom, Normal Inspection. Negative for: Lymphadenopathy, Meningismus, Tenderness, Thyromegaly - Respiratory Exam Respiratory Exam: Clear to Auscultation Bilateral, NORMAL BREATHING PATTERN. absent: Accessory Muscle Use, Decreased Breath Sounds, Rales, Rhonchi, Wheezes, Respiratory Distress - Cardiovascular Exam Cardiovascular Exam: REGULAR RHYTHM, RRR, +S1, +S2. absent: Bradycardia, Tac hycardia - GI/Abdominal Exam GI & Abdominal Exam: Distended, Hernia, Normal Bowel Sounds Additional comments: Loop colostomy with formed stool; Stoma pink and patent - Extremities Exam Extremities exam: Negative for: calf tenderness - Neurological Exam Neurological exam: Alert, Oriented x3 - Psychiatric Exam Psychiatric exam: Normal Affect, Normal Mood - Skin Skin Exam: Dry, Intact, Warm Results - Vital Signs Recent Vital Signs: Last Vital Signs Temp 98.2 F 04/10/18 06:00 Pulse 116 H 04/10/18 10:04 Resp 16 04/10/18 06:00 BP 172/92 H 04/10/18 06:00 Pulse Ox 96 04/10/18 06:00 - Labs Result Diagrams: 04/10/18 05:30 04/10/18 09:00 Labs: Laboratory Results - last 24 hr 04/09/18 04/09/18 04/10/18 18:08 21:33 05:30 WBC 8.4 D RBC 3.32 L Hgb 8.7 L Hct 29.1 L MCV 87.7 MCH 26.2 MCHC 29.9 L RDW 18.2 H Plt Count 311 MPV 11.0 Gran % 72.2 H Lymph % (Auto) 22.0 Mclennan % (Auto) 3.9 Eos % (Auto) 1.7 Baso % (Auto) 0.2 Gran # 6.03 Lymph # (Auto) 1.8 Mclennan # (Auto) 0.3 Eos # (Auto) 0.1 Baso # (Auto) 0.02 pCO2 pO2 HCO3 ABG pH ABG Total CO2 ABG O2 Saturation ABG O2 Content ABG Base Excess ABG Hemoglobin ABG Carboxyhemoglobin POC ABG HHb (Measured) ABG Methemoglobin ABG O2 Capacity Hgb O2 Saturation FiO2 POC Glucose (mg/dL) 163 H 179 H Iron TIBC % Saturation 04/10/18 04/10/18 04/10/18 06:34 09:00 09:45 WBC RBC Hgb Hct MCV MCH MCHC RDW Plt Count MPV Gran % Lymph % (Auto) Mclennan % (Auto) Eos % (Auto) Baso % (Auto) Gran # Lymph # (Auto) Mclennan # (Auto) Eos # (Auto) Baso # (Auto) pCO2 62 H pO2 71.0 L HCO3 25.4 ABG pH 7.22 L ABG Total CO2 27.3 ABG O2 Saturation 98.8 H ABG O2 Content 12.1 L ABG Base Excess -2.7 L ABG Hemoglobin 8.8 L ABG Carboxyhemoglobin 1.2 POC ABG HHb (Measured) 1.2 ABG Methemoglobin 1.0 ABG O2 Capacity 12.2 L Hgb O2 Saturation 96.7 FiO2 32.0 POC Glucose (mg/dL) 189 H Iron 40 L TIBC 166 L % Saturation 24 04/10/18 11:12 WBC RBC Hgb Hct MCV MCH MCHC RDW Plt Count MPV Gran % Lymph % (Auto) Mclennan % (Auto) Eos % (Auto) Baso % (Auto) Gran # Lymph # (Auto) Mclennan # (Auto) Eos # (Auto) Baso # (Auto) pCO2 pO2 HCO3 ABG pH ABG Total CO2 ABG O2 Saturation ABG O2 Content ABG Base Excess ABG Hemoglobin ABG Carboxyhemoglobin POC ABG HHb (Measured) ABG Methemoglobin ABG O2 Capacity Hgb O2 Saturation FiO2 POC Glucose (mg/dL) 171 H Iron TIBC % Saturation Assessment & Plan - Assessment and Plan (Free Text) Assessment: 62 year old female with a past medical history significant for 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 Hematology/Oncology was consulted for her history of rectal adenocarcinoma and anemia. Plan: -H/H (04/10): 8.7/29.1 (Baseline: 9.5-10.0) -Iron Studies: Iron-40, TIBC-166, %Saturation-24, Ferritin-301 -Vitamin B12/Folate: within normal limits -Lead: Pending -Likely secondary to LANEY and CKD -Given one dose of Venofer IV; Can give up to five doses of Venofer in 14 day period -Will give one dose of Aranesp, per Dr. Faye, at 0.45mcg/kg (Approximately 60mcg) -Continue to monitor with daily CBC's -Further recommendations as per Dr. Faye Patient seen and case discussed with attending, Dr. Faye. Jeff Perez PGY2 - Date & Time Date: 04/10/18 Time: 11:39
--- NOTE | 2018-04-10 11:58 | PN ---
DATE: 04/09/2018 SUBJECTIVE: The patient is still n.p.o. No pain. No abdominal pain. She is still nauseous on and off. Otherwise, she is in no respiratory distress. Seems stable. PHYSICAL EXAMINATION: VITAL SIGNS: Temperature 97.9, heart rate 67, blood pressure is 143/71, respirations 18, sat 98% on 2 L nasal cannula. HEAD AND NECK: Normal. No JVD. No thyromegaly. CHEST: Clear bilaterally. CARDIAC: First sound and second sound normal. No murmur, rub or gallop. ABDOMEN: Soft, obese with colostomy bags and mild tenderness. EXTREMITIES: No edema. NEUROLOGICAL: Normal. LABORATORY STUDY: Labs are ordered for tomorrow, but she has the BUN 94, creatinine 2.9. Her hemoglobin is 8.7, hematocrit 28.1 and platelets 295, white count 6. IMPRESSION: 1. Small bowel obstruction secondary to abdominal wall hernia. Probably, the patient will need surgery. The patient is a complicated case with rectal cancer, 2 colostomies. Seen initially with the surgeon. We will consider getting another surgical consult for this complicated case by surgical oncologist. 2. The patient has hypertension, diabetes type 2, hypercholesterolemia, morbid obesity, obstructive sleep apnea. Continue current medications. The patient was given hydralazine IV every 6 for systolic 170. Given clonidine patch. I will monitor her blood pressure. She may need more medications and the patient is n.p.o. 3. Anemia. The patient does have gastrointestinal bleed, probably slow gastrointestinal bleed. No active risks at this moment, but continue monitor her hemoglobin. 4. Acute renal failure. Continue IV fluid. We will monitor her creatinine and Renal consult was seen the patient. PLAN: Continue current therapy. Follow up clinically. Follow up with the patient account specialist, Dr. Ayala for obstructive sleep apnea, her BiPAP setting 17/01 with 3 L nasal cannula. We will continue current treatment and we will get Dr. Faye, Oncology consult. Elroy Florian MD
--- NOTE | 2018-04-10 12:14 | CP.PCM.PCO ---
Physician Communication Note - Physician Communication Note Physician Communication Note: SSE BEFORE TELEMETRY
[2018-04-10 12:33] LABS: ALB/GLOB RATIO 0.8 (1.1-1.8); ALBUMIN 2.8 g/dL (3.0-4.8); CALCIUM 9.1 mg/dL (8.4-10.5)
--- NOTE | 2018-04-10 12:36 | CP.PCM.PN ---
Subjective - Date & Time of Evaluation Date of Evaluation: 04/10/18 Time of Evaluation: 12:32 - Subjective Subjective: General Surgery Progress Note for Dr. Dutta covering for Dr. Mckeon 62F morbidly obese female seen and evaluated at bedside this morning. Patient had multiple episodes of NBNB vomiting overnight. States she is experiencing pain around the ostomy site. Tolerating clears. Relatively bed bound. Denies f/c, diarrhea, SOB, CP, or urinary symptoms. Objective - Vital Signs/Intake and Output Vital Signs (last 24 hours): Temp Pulse Resp BP Pulse Ox 98.2 F 116 H 16 172/92 H 96 04/10/18 06:00 04/10/18 10:04 04/10/18 06:00 04/10/18 06:00 04/10/18 06:00 Intake and Output: 04/10/18 04/10/18 06:59 18:59 Output Total 800 Balance -800 - Medications Medications: Current Medications Amlodipine Besylate (Norvasc) 10 mg PO DAILY [facility] Last Admin: 04/10/18 11:23 Dose: Not Given Arformoterol Tartrate (Brovana) 15 mcg IH [id number] [facility] Last Admin: 04/10/18 07:32 Dose: 15 mcg Budesonide (Pulmicort Respules) 0.5 mg IH [id number] [facility] Last Admin: 04/10/18 07:33 Dose: 0.5 mg Clonidine HCl (Catapres Tts1 0.1 Mg/24 Hr) 1 patch TD Q7D@1000 ONE Stop: 04/16/18 13:51 Enoxaparin Sodium (Lovenox) 40 mg SC DAILY [facility]; Protocol Last Admin: 04/10/18 11:21 Dose: 40 mg Hydralazine HCl (Apresoline) 10 mg IVP Q6 PRN PRN Reason: Systolic Blood Pressure Last Admin: 04/10/18 05:51 Dose: 10 mg Hydralazine HCl (Apresoline) 50 mg PO TID [facility] Last Admin: 04/10/18 11:22 Dose: Not Given Hydromorphone HCl (Dilaudid) 2 mg IVP Q4H PRN PRN Reason: Pain, severe (8-10) Sodium Chloride (Sodium Chloride 0.9%) 1,000 mls @ 100 mls/hr IV .Q10H [facility] Last Admin: 04/10/18 05:29 Dose: 100 mls/hr Metronidazole (Flagyl) 500 mg in 100 mls @ 100 mls/hr IVPB Q8 [facility]; Protocol Last Admin: 04/10/18 05:22 Dose: 100 mls/hr Ceftriaxone Sodium (Rocephin 1 Gram Ivpb) 1 gm in 100 mls @ 100 mls/hr IVPB DAILY [facility]; Protocol Last Admin: 04/10/18 11:22 Dose: 100 mls/hr Insulin Human Regular (Humulin R Low) 0 units SC ACHS [facility]; Protocol Last Admin: 04/10/18 11:53 Dose: Not Given Metoprolol Succinate (Toprol Xl) 100 mg PO BRK JR Metoprolol Tartrate (Lopressor) 5 mg IV Q6H [facility] Pantoprazole Sodium (Protonix Inj) 40 mg IVP DAILY [facility] Last Admin: 04/10/18 11:22 Dose: 40 mg - Labs Labs: 04/10/18 05:30 04/08/18 22:30 PT 12.4 SECONDS (9.4-12.5) 04/08/18 22:30 INR 1.09 04/08/18 22:30 APTT 29.8 Seconds (25.1-36.5) 04/08/18 22:30 - Constitutional Appears: Non-toxic, No Acute Distress - Head Exam Head Exam: ATRAUMATIC, NORMAL INSPECTION, NORMOCEPHALIC - Eye Exam Eye Exam: EOMI - ENT Exam ENT Exam: Mucous Membranes Moist - GI/Abdominal Exam GI & Abdominal Exam: Soft, Tenderness. absent: Firm, Guarding, Rigid, Rebound Additional comments: ostomy site pink, patent with no visible output stoma digitized with palpable hard stool - Neurological Exam Neurological Exam: Alert, Awake - Skin Skin Exam: Dry, Intact, Normal Color, Warm Assessment and Plan - Assessment and Plan (Free Text) Assessment: 62F w/ pSBO vs. fecal impaction Plan: Stoma digitized with moderate removal of hard stool at bedside Tap water enemas ordered Continue clear liquids Continue IVF IV Abx Analgesics and antiemetics Further management per primary team Further recommendations per Dr. Dutta/Mike Atkinson PGY1
--- NOTE | 2018-04-10 12:38 | CP.PCM.CON ---
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 Pt reports began ~24hrs [employer]. pain described as crampy, gas pains. Pt admits to similar pains in the past that usually self-resolved. Pt admits to concurrent decreased ostomy output as well as decreased flatus. Pt reports recent constipation w/ formed, hard stool in loop colostomy. Pt denies F/C, CP, SOB, N/V, dysuria. CT A/P performed in ED concerning for partial vs intermittent SBO from parastomal hernia. Overnight pt c/o nausea w/ multiple episodes NBNB vomiting. Pt denies ostomy output, however some flatus is passing. PMHx: see above, COPD, DM2, anemia Meds: reviewed in chart, *Eliquis* NKDA PSHx: loop coloscomt, APR, appendectomy, cardiac stents SHx: denies tobacco, EtOH, drug use FHx: noncontributory Review of Systems - Review of Systems All systems: reviewed and no additional remarkable complaints except (see HPI) Past Patient History - Infectious Disease Hx of Infectious Diseases: None - Tetanus Immunizations Tetanus Immunization: Unknown - Past Social History Smoking Status: Never Smoked - CARDIAC Hx Cardiac Disorders: Yes (CAD) Hx Congestive Heart Failure: Yes Hx Hypercholesterolemia: Yes Hx Hypertension: Yes - PULMONARY Hx Respiratory Disorders: Yes Hx Bronchitis: Yes Hx Chronic Obstructive Pulmonary Disease (COPD): Yes - NEUROLOGICAL Hx Neurological Disorder: Yes Hx Dizziness: Yes - HEENT Hx HEENT Problems: No Hx Macular Degeneration: No - RENAL Hx Renal Failure: Yes - ENDOCRINE/METABOLIC Hx Endocrine Disorders: Yes Hx Diabetes Mellitus Type 2: Yes - HEMATOLOGICAL/ONCOLOGICAL Hx Blood Disorders: Yes Hx Cancer: Yes (COLON CA,RECTAL ADENOCARCINOMA WITH COLON RESECTION WITH COLOSTOMY.) - INTEGUMENTARY Hx Dermatological Problems: Yes Other/Comment: MASD UNDER FOLDS OF SKIN,SPECIALLY UNDER THE BREAST ,GROIN AREA. IASD IN BETWEEN BUTTOCKS ,SKIN IS RED FLUSHED. - MUSCULOSKELETAL/RHEUMATOLOGICAL Hx Musculoskeletal Disorders: Yes Hx Falls: No Hx Unsteady Gait: Yes - GASTROINTESTINAL Hx Gastrointestinal Disorders: Yes (RECTAL CA WITH COLOSTOMY,GI BLEED) - GENITOURINARY/GYNECOLOGICAL Hx Genitourinary Disorders: Yes (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,UTI) - PSYCHIATRIC Hx Psychophysiologic Disorder: Yes Hx Anxiety: Yes - SURGICAL HISTORY Hx Surgeries: Yes Hx Appendectomy: Yes Hx Coronary Stent: Yes Other/Comment: colostomy - ANESTHESIA Hx Anesthesia: Yes Hx Anesthesia Reactions: No Hx Malignant Hyperthermia: No Meds Allergies/Adverse Reactions: Allergies Allergy/AdvReac Type Severity Reaction Status Date / Time No Known Allergies Allergy Verified 04/08/18 21:16 - Medications Medications: Current Medications Amlodipine Besylate (Norvasc) 10 mg PO DAILY ON LICENSE OF [facility] Last Admin: 04/10/18 11:23 Dose: Not Given Arformoterol Tartrate (Brovana) 15 mcg IH [id number] ON LICENSE OF [facility] Last Admin: 04/10/18 07:32 Dose: 15 mcg Budesonide (Pulmicort Respules) 0.5 mg IH [id number] ON LICENSE OF [facility] Last Admin: 04/10/18 07:33 Dose: 0.5 mg Clonidine HCl (Catapres Tts1 0.1 Mg/24 Hr) 1 patch TD Q7D@1000 ONE Stop: 04/16/18 13:51 Enoxaparin Sodium (Lovenox) 40 mg SC DAILY ON LICENSE OF [facility]; Protocol Last Admin: 04/10/18 11:21 Dose: 40 mg Hydralazine HCl (Apresoline) 10 mg IVP Q6 PRN PRN Reason: Systolic Blood Pressure Last Admin: 04/10/18 05:51 Dose: 10 mg Hydralazine HCl (Apresoline) 50 mg PO TID ON LICENSE OF [facility] Last Admin: 04/10/18 11:22 Dose: Not Given Hydromorphone HCl (Dilaudid) 2 mg IVP Q4H PRN PRN Reason: Pain, severe (8-10) Sodium Chloride (Sodium Chloride 0.9%) 1,000 mls @ 100 mls/hr IV .Q10H ON LICENSE OF [facility] Last Admin: 04/10/18 05:29 Dose: 100 mls/hr Metronidazole (Flagyl) 500 mg in 100 mls @ 100 mls/hr IVPB Q8 ON LICENSE OF [facility]; Protocol Last Admin: 04/10/18 05:22 Dose: 100 mls/hr Ceftriaxone Sodium (Rocephin 1 Gram Ivpb) 1 gm in 100 mls @ 100 mls/hr IVPB DAILY ON LICENSE OF [facility]; Protocol Last Admin: 04/10/18 11:22 Dose: 100 mls/hr Insulin Human Regular (Humulin R Low) 0 units SC ACHS ON LICENSE OF [facility]; Protocol Last Admin: 04/10/18 11:53 Dose: Not Given Metoprolol Succinate (Toprol Xl) 100 mg PO BRK JR Metoprolol Tartrate (Lopressor) 5 mg IV Q6H JR Pantoprazole Sodium (Protonix Inj) 40 mg IVP DAILY ON LICENSE OF [facility] Last Admin: 04/10/18 11:22 Dose: 40 mg Physical Exam - Constitutional Appears: Non-toxic, No Acute Distress - Head Exam Head Exam: NORMAL INSPECTION - Eye Exam Eye Exam: Normal appearance - ENT Exam ENT Exam: Mucous Membranes Moist - Respiratory Exam Respiratory Exam: NORMAL BREATHING PATTERN. absent: Accessory Muscle Use, Respiratory Distress - Cardiovascular Exam Cardiovascular Exam: absent: Bradycardia, Tachycardia - GI/Abdominal Exam GI & Abdominal Exam: Distended (mordidly obese), Soft. absent: Firm, Guarding, Rebound, Rigid, Tenderness Additional comments: ostomy w/ gas present in bag stoma pink, patent w/ hard stool on digital exam. no stenosis palpable - Extremities Exam Extremities exam: Positive for: normal inspection - Neurological Exam Neurological exam: Alert, Oriented x3 - Psychiatric Exam Psychiatric exam: Normal Affect, Normal Mood - Skin Skin Exam: Dry, Intact, Normal Color, Warm Results - Vital Signs Recent Vital Signs: Last Vital Signs Temp 98.2 F 04/10/18 06:00 Pulse 116 H 04/10/18 10:04 Resp 16 04/10/18 06:00 BP 172/92 H 04/10/18 06:00 Pulse Ox 96 04/10/18 06:00 - Labs Result Diagrams: 04/10/18 05:30 04/10/18 09:00 Labs: Laboratory Results - last 24 hr 04/09/18 04/09/18 04/10/18 18:08 21:33 05:30 WBC 8.4 D RBC 3.32 L Hgb 8.7 L Hct 29.1 L MCV 87.7 MCH 26.2 MCHC 29.9 L RDW 18.2 H Plt Count 311 MPV 11.0 Gran % 72.2 H Lymph % (Auto) 22.0 [place] % (Auto) 3.9 Eos % (Auto) 1.7 Baso % (Auto) 0.2 Gran # 6.03 Lymph # (Auto) 1.8 [place] # (Auto) 0.3 Eos # (Auto) 0.1 Baso # (Auto) 0.02 pCO2 pO2 HCO3 ABG pH ABG Total CO2 ABG O2 Saturation ABG O2 Content ABG Base Excess ABG Hemoglobin ABG Carboxyhemoglobin POC ABG HHb (Measured) ABG Methemoglobin ABG O2 Capacity Hgb O2 Saturation FiO2 Sodium Potassium Chloride Carbon Dioxide Anion Gap BUN Creatinine Est GFR ( Amer) Est GFR (Non-Af Amer) POC Glucose (mg/dL) 163 H 179 H Random Glucose Calcium Iron TIBC % Saturation Ferritin Total Bilirubin AST ALT Alkaline Phosphatase Total Protein Albumin Globulin Albumin/Globulin Ratio 04/10/18 04/10/18 04/10/18 06:34 08:00 09:00 WBC RBC Hgb Hct MCV MCH MCHC RDW Plt Count MPV Gran % Lymph % (Auto) [place] % (Auto) Eos % (Auto) Baso % (Auto) Gran # Lymph # (Auto) [place] # (Auto) Eos # (Auto) Baso # (Auto) pCO2 pO2 HCO3 ABG pH ABG Total CO2 ABG O2 Saturation ABG O2 Content ABG Base Excess ABG Hemoglobin ABG Carboxyhemoglobin POC ABG HHb (Measured) ABG Methemoglobin ABG O2 Capacity Hgb O2 Saturation FiO2 Sodium Potassium Chloride Carbon Dioxide Anion Gap BUN Creatinine Est GFR ( Amer) Est GFR (Non-Af Amer) POC Glucose (mg/dL) 189 H Random Glucose Calcium Iron 40 L TIBC 166 L % Saturation 24 Ferritin 301.0 Total Bilirubin AST ALT Alkaline Phosphatase Total Protein Albumin Globulin Albumin/Globulin Ratio 04/10/18 04/10/18 04/10/18 09:00 09:45 11:12 WBC RBC Hgb Hct MCV MCH MCHC RDW Plt Count MPV Gran % Lymph % (Auto) [place] % (Auto) Eos % (Auto) Baso % (Auto) Gran # Lymph # (Auto) [place] # (Auto) Eos # (Auto) Baso # (Auto) pCO2 62 H pO2 71.0 L HCO3 25.4 ABG pH 7.22 L ABG Total CO2 27.3 ABG O2 Saturation 98.8 H ABG O2 Content 12.1 L ABG Base Excess -2.7 L ABG Hemoglobin 8.8 L ABG Carboxyhemoglobin 1.2 POC ABG HHb (Measured) 1.2 ABG Methemoglobin 1.0 ABG O2 Capacity 12.2 L Hgb O2 Saturation 96.7 FiO2 32.0 Sodium 143 Potassium 5.6 H* Chloride 114 H Carbon Dioxide 20 L Anion Gap 14 BUN 80 H Creatinine 2.1 H Est GFR ( Amer) 29 Est GFR (Non-Af Amer) 24 POC Glucose (mg/dL) 171 H Random Glucose 181 H Calcium 9.1 Iron TIBC % Saturation Ferritin Total Bilirubin 0.3 AST 32 ALT 30 Alkaline Phosphatase 152 H Total Protein 6.3 Albumin 2.8 L Globulin 3.5 Albumin/Globulin Ratio 0.8 L - Imaging and Cardiology CT scan - abdomen Status: Image reviewed by me, Report reviewed by me Assessment & Plan - Assessment and Plan (Free Text) Assessment: 62 y/o F w/ APR and blind loop colostomy 2/2 rectal adenocarcinoma c/o abd pain and anemia found on outpatient work up CT scan concerning for partial vs intermittent SBO Plan: - NPO/IVF - monitor ostomy output - soap suds enema - non-narcotic pain management - zofran/reglan for nausea - NGT if vomiting develops - stool softeners if tolerating PO At current BMI, pt is very high risk for significant morbidity and mortality Recommend f/u w/ [facility] for weight-loss surgery prior to parastoma hernia repair Pt discussed w/ Dr. Trish Wilkinson DO PGY3
[2018-04-10 13:03] LABS: FOLATE > 20.0 ng/mL
--- NOTE | 2018-04-10 14:05 | CP.PCM.PN ---
Subjective - Date & Time of Evaluation Date of Evaluation: 04/10/18 Time of Evaluation: 14:04 - Subjective Subjective: Nephrology Consultation Note: Assessment: stable SBO Acute Kidney Injury (N17.9) likely pre-renal state left adrenal adenoma, Rt renal hyperdense cyst chronic hypercapnic respi failure Diabetic chronic Kidney Disease (E11.22) Hypertensive Chronic Kidney Disease (I12.9) Chronic Kidney Disease (N18.3) Stage 3 with 2.4 gm proteinuria (R80.9) likely due to DM/HTN/Obesity Anemia Vit D def morbid obesity, CAD s/p stent, COPD/SUMMER, rectal ca s/p colostomy Plan No acute need for renal replacement therapy at this time. . Hypertension control with meds as ordered. Maintain hemodynamics stable. Avoid hypotension. Patient not on ACEI/ARB due to recent SHELBI. resume her norvasc, toprol and hydralazne Monitor Input/Output, daily weights and renal function with basic metabolic panel continue with IVF pulmonary and surgery following defer management of anemia to heme/onc. due to hx of malignancy, will defer use of ESAs. Adrenal adenoma work up with plasma renin/aldosterone, plasma metanephrine NEGATIVE. outpt 1 mg dexa suppression test repeat renal sono in 6 months to assess her Rt renal cyst Dose meds/antibiotics for reduced GFR. Avoid fleets enema/magnesium based laxatives. Avoid nephrotoxins/NSAIDs/ iodinated contrast (unless needed emergently) Glycemic control Further work up/management as per primary team Thanks for allowing me to participate in care of your patient. Will follow patient with you. Please call if any Qs. had d/w team Dr Dae Dawn Office: [phone] Chief Complaint; abdomen pain Reason for consult: Acute Kidney Injury, CKD 3 HPI: Pt is a 62 F with hx of diabetes Mellitus (15 years), hypertension (years), CKD 3 with baseline cr 1.2-1.3 with AKIs, morbid obesity, CAD s/p s tent, COPD/SUMMER on CPAP, rectal ca s/p colostomy presented with complaints of abdomen pain with nausea/vomiting. renal consult for CKD and SHELBI management. pt has no urine complaints. found to have partial SBO Denies OTC/herbal meds or NSAIDs No recent iodinated contrast exposure. No obvious episodes of low BP. ROS: c/o pain abdomen with nausea/vomiting. feels sleepy. no SOB. denies urine complaints. reports decreased oral intake. On BIPAP Physical Examination: General Appearance: Comfortable, co-operative . morbidly obese. ill appearing, on BiPAP Vitals reviewed and noted as below Head; Atraumatic, normocephalic ENT: normal oral mucosa/dry. no rash/ulcer EYES: Pupils are equal, round and reactive to light accommodation. Eye muscles and extraocular movement intact. Sclera is anicteric. Neck; supple no lymphadenopathy, no thyromegaly or bruit Lungs: Normal respiratory rate/effort. Breath sounds bilateral equal, diminished at bases Heart: normal rate. s1s2 normal. No rub or gallop. Extremities: 2+ edema. No varicose veins Neurological: Patient is bit sleepy but oriented to person, place and time. No focal deficit. Strength bilateral appropriate and equal Skin: Warm and dry. Normal turgor. No rash. Palpitation: Normal elasticity for age Abdomen: Abdomen is soft. Bowel sounds +. There is no abdominal tenderness, no guarding/rigidity no organomegaly. has colostomy and ventral hernia Psych: normal insight and normal affect/mood MSK: no joint tenderness or swelling. Digits and nails normal, no deformity : kidney or bladder not palpable Labs/imaging reviewed. Past medical history, past surgical history, family history, social history, allergy reviewed and noted as below Family hx: no hx of CKD. Rest non-contributory PET CT 04/2017: neg CT abdomen: left adrenal adenoma 1.9 cm Rt kidney 2.6 cm hyperdense cyst UA 100 protein, neg for blood renin and roma low, metanehrine WNL PTH 133 Vit D 27 ANCA neg, K/L ratio WNL Objective - Vital Signs/Intake and Output Vital Signs (last 24 hours): Temp Pulse Resp BP Pulse Ox 98.2 F 105 H 16 163/43 H 96 04/10/18 06:00 04/10/18 13:36 04/10/18 06:00 04/10/18 13:36 04/10/18 06:00 Intake and Output: 04/10/18 04/10/18 06:59 18:59 Output Total 800 Balance -800 - Medications Medications: Current Medications Amlodipine Besylate (Norvasc) 10 mg PO DAILY JR Last Admin: 04/10/18 11:23 Dose: Not Given Arformoterol Tartrate (Brovana) 15 mcg IH [id number] JR Last Admin: 04/10/18 07:32 Dose: 15 mcg Budesonide (Pulmicort Respules) 0.5 mg IH [id number] JR Last Admin: 04/10/18 07:33 Dose: 0.5 mg Clonidine HCl (Catapres Tts1 0.1 Mg/24 Hr) 1 patch TD Q7D@1000 ONE Stop: 04/16/18 13:51 Enoxaparin Sodium (Lovenox) 40 mg SC DAILY [facility]; Protocol Last Admin: 04/10/18 11:21 Dose: 40 mg Hydralazine HCl (Apresoline) 10 mg IVP Q6 PRN PRN Reason: Systolic Blood Pressure Last Admin: 04/10/18 05:51 Dose: 10 mg Hydralazine HCl (Apresoline) 50 mg PO TID [facility] Last Admin: 04/10/18 13:36 Dose: Not Given Hydromorphone HCl (Dilaudid) 2 mg IVP Q4H PRN PRN Reason: Pain, severe (8-10) Sodium Chloride (Sodium Chloride 0.9%) 1,000 mls @ 100 mls/hr IV .Q10H [facility] Last Admin: 04/10/18 05:29 Dose: 100 mls/hr Metronidazole (Flagyl) 500 mg in 100 mls @ 100 mls/hr IVPB Q8 JR; Protocol Last Admin: 04/10/18 05:22 Dose: 100 mls/hr Ceftriaxone Sodium (Rocephin 1 Gram Ivpb) 1 gm in 100 mls @ 100 mls/hr IVPB DAILY [facility]; Protocol Last Admin: 04/10/18 11:22 Dose: 100 mls/hr Insulin Human Regular (Humulin R Low) 0 units SC ACHS [facility]; Protocol Last Admin: 04/10/18 11:53 Dose: Not Given Metoprolol Succinate (Toprol Xl) 100 mg PO BRK JR Metoprolol Tartrate (Lopressor) 5 mg IV Q6H JR Pantoprazole Sodium (Protonix Inj) 40 mg IVP DAILY [facility] Last Admin: 04/10/18 11:22 Dose: 40 mg - Labs Labs: 04/10/18 05:30 04/10/18 09:00 PT 12.4 SECONDS (9.4-12.5) 04/08/18 22:30 INR 1.09 04/08/18 22:30 APTT 29.8 Seconds (25.1-36.5) 04/08/18 22:30
[2018-04-10] MEDS ORDERED: Darbepoetin Alfa 60 mcg/ml Inj SC ONE (14:06)
[2018-04-10] MEDS ORDERED: Sod Polystyrene Sulf 15 gm/60 ml Susp PO ONE ×2 (15:02→18:53)
[2018-04-10] MEDS ORDERED: Dextrose 50% SYRINGE Inj (50 ml) IVP ONE (16:58)
[2018-04-10] MEDS ORDERED: Insulin Regular 1 UNITS/0.01 ML ML SC ONE (17:00)
[2018-04-10] MEDS ORDERED: Dextrose 50% SYRINGE Inj (50 ml) ONE (17:03)
[2018-04-10] MEDS ORDERED: Insulin Regular 1 UNITS/0.01 ML ML IVP ONE (17:06)
[2018-04-10] MEDS: Metoprolol 1 mg/ml Inj IV SCH ×2 (17:07→23:10)
[2018-04-10 17:34] LABS: VENOUS BLOOD GAS BASE EXCESS -3.1 mmol/L (0.0-2.0); VENOUS BLOOD GAS PO2 178 mm/Hg (30-55); VENOUS BLOOD PH 7.25 (7.32-7.43)
[2018-04-10 17:38] LABS: BASO # 0.02 K/mm3 (0.0-2.0); BASO % 0.2 % (0.0-3.0); EOS % 0.3 % (1.5-5.0); GRAN # 8.54 (1.4-6.5); GRAN % 83.8 % (50.0-68.0); HEMOGLOBIN 8.5 g/dL (12.0-16.0); LYMPH # 0.9 (1.2-3.4); LYMPH % 8.5 % (22.0-35.0); MEAN CELL VOLUME 88.4 fl (80.0-105.0); MEAN CORPUSCULAR HGB CONC 29.4 g/dl (31.0-37.0); MONO # 0.7 (0.1-0.6); MONO % 7.2 % (1.0-6.0); RBC 3.27 10^6/uL (3.5-6.1); RED CELL DISTRIBUTION WIDTH 18.3 % (11.5-14.5); WHITE BLOOD COUNT 10.2 10^3/uL (4.5-11.0)
[2018-04-10 17:40] LABS: TROPONIN I 0.14 ng/mL
[2018-04-10 17:46] LABS: ALB/GLOB RATIO 0.8 (1.1-1.8); ALBUMIN 3.1 g/dL (3.0-4.8); CALCIUM 8.9 mg/dL (8.4-10.5)
--- NOTE | 2018-04-10 18:59 | PCM.RRT ---
BUDDER Nurse Assessment - Situation Date: 04/10/18 Time BUDDER was called: 16:55 BUDDER Responder Arrival Time: 16:56 BUDDER Location:: [address] [place] [address] Room Number: [id number] BUDDER Reason for Call: Tachycardia, Hypotension BUDDER Called By: RN - IV IV Inserted during BUDDER?: No - Respiratory Oxygen Delivery Method: BiPAP @% Oxygen Flow Rate: 3 Received Nebulizer Treatments:: No Was the Patient Ventilated with Bag/Mask 100% O2?: No Secretions Suctioned?: No Was the Patient Intubated?: No Was the Patient Placed on a Ventilator?: No - Medication Medications Administered During BUDDER: Dextrose 50%. Regular Insulin 6u. Lopressor 5mg IVP - Diagnostic Test Ordered EKG: Yes Chest X-Ray: No CT Scan: No - Stat Labs Ordered BUDDER Stat Labs Ordered: CBC, LACTIC ACID CPR started during BUDDER?: No - Vital Signs Vital Sign: Rapid Response Vital Sign Blood Pressure 94/50 Pulse Rate 111 Respiratory Rate 15 Temperature 99.3 F Oxygen Saturation 93 - Finger Stick Blood Glucose Finger Stick Blood Glucose: 200 - Sepsis Screen Part 1 Sepsis Screen Part 1: Hypotensive - Sepsis Screen Part 2 Sepsis Screen Part 2: Glucose elevated, Pt not on steroids - Time BUDDER Ended Time BUDDER Ended: 17:10 - Vital Signs at end of BUDDER Vital Signs at end of BUDDER: Rapid Response End Vital Sign Blood Pressure 115/61 Pulse Rate 112 Respiratory Rate 15 Temperature 99.3 F O2 Sat by Pulse Oximetry 93 - Recommendations Notifications: Attending Physician, Consultations I.Reason for BUDDER - A) Acute Change in Patient: Subjective: This is a 62 year old female with CHF, CAD, HTN, rectal cancer and DVT/PE who had BUDDER called after nurse found patient to have HR in the 130s and BP of 94/53. Patient admitted to nausea and denied CP, SOB, vomiting, abdominal pain, back pain, numbness, tingling, swelling, and headaches. Patient noted to have elevated potassium earlier in the day and scheduled to receive kayexalate; however patient unable to tolerate due to nausea. After BUDDER called, patient given D50 glucose and 6 units insulin. EKG showed NSR at 100bpm with ST or T changes. BP was rechecked and noted to be 111/53 with pulse of 105. O2 sat was 93% while on bipap. - Respiratory Oxygen Delivery Method: BiPAP @% Oxygen Flow Rate: 3 - Constitutional Appears: No Acute Distress - Head Head Exam: ATRAUMATIC, NORMAL INSPECTION - Eyes Eye Exam: EOMI - Respiratory Exam Respiratory Exam: Clear to Ausculation Bilateral. absent: Accessory Muscle Use, Respiratory Distress - Cardiovascular Exam Cardiovascular Exam: REGULAR RHYTHM, +S1, +S2 - GI/Abdominal Exam GI & Abdominal Exam: Normal Bowel Sounds. absent: Guarding, Rigid - Neurological Exam Neurological Exam: Alert, Oriented x3 - Extremities Exam Extremities Exam: Normal Inspection. absent: Calf Tenderness Plan - Assessment of Findings&Treatment Plan -CBC -CMP -troponin -EKG
--- NOTE | 2018-04-10 19:37 | CARD ---
APPROVED REPORT Date of service: 04/10/2018 EKG Measurement Heart [id number] <Conclusion> Normal sinus rhythm Normal ECG
--- NOTE | 2018-04-10 20:12 | HP ---
DATE OF EXAM: 04/09/2018 REASON FOR ADMISSIONS: Low hemoglobin and vomiting. HISTORY OF PRESENT ILLNESS: This is a 62-year-old female with history of rectal CA with resection, radiation, chemo, in the last 5 years, she had 2 colostomies. She has history of coronary artery disease, hypertension, congestive heart failure, DVT/PE filter, came in to the ER from rehab unit at 10 a.m. after finishing the IV antibiotic. She has been having nausea, not eating, that seems getting worse. The patient's repeat labs shows hemoglobin is low 7.5 and was advised to come to the ER for evaluation of a persistent nausea and low hemoglobin. She denied any fever, chills and any burning urination. She does have some mild abdominal discomfort. PAST MEDICAL HISTORY: As I mentioned above, she has rectal CA, she got radiation, she got chemo. She had 2 surgical colostomies permanent and has insulin-dependent diabetes, hypertension severe, that seems controlled. She is morbid obese and she has pulmonary embolism with right-sided heart failure. She has coronary artery disease, with I believe RCA stent, we will review the records. She had history of anemia, that seems getting worse now. She has history of obstructive sleep apnea and congestive heart failure right-sided and she is on BiPAP. SOCIAL HISTORY: She is a . She lives by herself. No smoking. No drugs. No alcohol. PAST SURGICAL HISTORY: As I mentioned, she did have appendectomy, she had rectal CA resected and she had a colostomy. FAMILY HISTORY: Noncontributory. PHYSICAL EXAMINATION: GENERAL: The patient is lying in bed, supine position and no distress. Seems comfortable. VITAL SIGNS: Temperature 97.9, heart rate 67, blood pressure 144/94, respiratory rate 18 and saturation 98%. HEENT: Head and neck normal. No JVD. No thyromegaly. CHEST: Clear bilaterally. CARDIAC: First sound and second sound normal. ABDOMEN: Soft, obese with 2 colostomies bags and mild generalized tenderness. EXTREMITIES: No edema. NEUROLOGIC: Normal. LABORATORY DATA: Shows white count 6, hemoglobin 8.7, hematocrit 28.1 and platelets is 295,000. Sodium 138, potassium 4.9, chloride 104, bicarb 27, BUN 94, creatinine 2.9, blood sugar is 218 and calcium 9. AST and ALT is normal. Bilirubin is normal. Alk phos is 152. The patient has a PT/PTT, it was normal. She also had a CT abdomen, it shows small bowel obstruction with abdominal wall hernia. She has a chest x-ray which shows no active pulmonary disease. EKG also was done and it shows normal sinus rhythm and normal EKG. IMPRESSION: This is a 62-year-old female with multiple medical problems and comorbid illnesses came in with low hemoglobin, nausea and vomiting persistent. CT abdomen shows small bowel obstruction and abdominal wall hernia. PLAN: 1. To admit the patient n.p.o., IV fluid and we will get a surgical consult, general surgeon to look her and evaluate her. We will also add IV antibiotic, Rocephin and Flagyl, and we will continue to monitor the patient. 2. The patient has rectal carcinoma with [address] Faye to follow up on that and anemia and necessity for transfusion. She does have history of coronary artery disease. So a hemoglobin of 10 would be very appropriate. 3. The patient has morbid obesity, chronic obstructive pulmonary disease, obstructive sleep apnea, get the pulmonary to look at her and monitor her pulmonary conditions. 4. Gastrointestinal ji, we will get Dr. Benitez to evaluate her small bowel obstruction, see his input and recommendations. At this time, we will continue current medication, monitor blood pressure and insulin coverage. She is n.p.o. and we will see how she does. Continue current therapy. Followup with the lead consultant. We will see how she is doing. We will discuss with the patient on daily basis. 5. We need to see her acute renal failure, BUN 94 and creatinine 2.9. I will get Dr. Dae Dawn for evaluations, IV fluid and repeat labs in the morning. Elroy Florian MD
--- NOTE | 2018-04-10 22:43 | PN ---
DATE: 04/10/2018 PULMONARY PROGRESS NOTE REFERRING PHYSICIAN: Elroy Florian MD. SUBJECTIVE: She is lying in the bed on noninvasive ventilation, has a respiratory failure with CO2 retention and hypoxemia, requiring BiPAP. No chest pain, no nausea, no vomiting, diarrhea, leg pain, leg swelling. OBJECTIVE: GENERAL: In no acute distress. VITAL SIGNS: Temperature is 99, heart rate is 109, respiratory rate is 20, blood pressure is 111/53, pulse ox is 93% on BiPAP. HEENT: Small oral cavity. Crowded airway. Short thick neck. LUNGS: Have a scattered rhonchi. HEART: S1 and S2, tachycardic. ABDOMEN: Soft, nontender, no organomegaly. EXTREMITIES: No edema. NEUROLOGICAL: Awake and alert. Follows simple command. MEDICATIONS: She is on hydralazine 10 mg every 6 hours p.r.n., Brovana inhaled twice a day, Dilaudid 1 mg every 4 hours p.r.n., Flagyl 500 mg every 8 hours, insulin coverage, metoprolol tartrate 5 mg every 6 hour, Lovenox 40 mg daily, amlodipine 10 mg daily, Protonix 40 mg daily, Pulmicort inhaled twice a day, Rocephin 1 g IV daily, IV fluid normal saline 100 mL/hour, Toprol-XL is 100 mg daily, Zofran p.r.n. basis. LABORATORY DATA: Shows hemoglobin 8.5, hematocrit 28.9, WBC 10.2, platelet is 295. ABG done, which shows pH 7.22, pCO2 is 62, O2 is 71. Sodium 143, potassium 5.2, chloride 111, bicarbonate 24, BUN 72, creatinine 2, glucose 211, calcium is 8.9, AST 31, ALT 23, alk phos is 157. Troponin 0.14, albumin is 3.1. EKG done today shows normal sinus rhythm with rate was 100 at that time. she had a rapid response done because of tachycardia and hypotension. IMPRESSION AND PLAN: Acute on chronic respiratory failure with CO2 retention, metabolic and respiratory acidosis, renal failure, hypoventilation syndrome, morbid obesity, history of deep venous thrombosis, history of pulmonary embolism, coronary artery disease, history of colorectal cancer requiring surgery, has colostomy, ventral hernia, pancreatitis. Case discussed with nursing staff. Kayexalate was given for hyperkalemia. IV fluid had been started. Continue noninvasive ventilation for now, inhaled bronchodilators. Continue antibiotics, pain management. Follow up ABG, chest x-ray, CBC, CMP in the morning. Thank you and we will follow with you. Pamela Ayala MD
--- NOTE | 2018-04-10 23:41 | CON ---
DATE: 04/10/2018 REASON FOR CONSULTATION: Tachycardia, lethargic, small bowel obstruction, cardiac evaluation, history of coronary artery disease, possible OR. BRIEF CLINICAL HISTORY: This is a 62-year-old morbidly obese female, mostly bedridden; pickwickian syndrome; possibly obstructive sleep apnea; coronary artery disease, status post PTCA; history of DVT; history of PE; history of rectal cancer, status post resection, status post colostomy, who was in nursing facility, mostly bedridden, abdominal pain, possible small bowel obstruction. Cardiac consult was called for cardiac evaluation for possible OR and for lethargy and tachycardia. Patient denies any chest pain. Denies any shortness of breath. Denies any palpitation at this time. History of coronary artery disease, history of bare-metal stent circumflex prior to pelvic surgery. PAST MEDICAL HISTORY: Significant for morbid obesity; diabetes; hypertension; hyperlipidemia; colorectal cancer, status post colostomy bag; history of cardiac catheterization and stent prior to pelvic surgery with a bare-metal in the circumflex; history of kidney injury 09/10/2017 with a BUN 106 and creatinine 4.5 at that time. Previous cardiac workup as follows, patient had a cardiac cath on 03/17/2014 and PTCA obtuse marginal I with a bare-metal sten. History of DVT, PE, status post tPA, history of Xarelto for DVT and PE. Last echo done 09/01/2017 that revealed normal LV function, normal LV segmental wall motion abnormality, grade II diastolic dysfunction. No mitral stenosis, no mitral regurgitation, and no tricuspid valve vegetation noted. ALLERGIES: NO KNOWN DRUG ALLERGIES. SOCIAL HISTORY: Denies any history of alcohol abuse. CURRENT MEDICATIONS: Patient at home before coming here was taking Zaroxolyn 1 tablet daily, hydralazine, clonidine, Catapres patch, clonidine as a tablet p.o. 0.1 mg three times a day, Norvasc 1 tablet daily, Zocor, primidone, Lyrica, Lasix 40 mg in the morning and 20 at night, ferrous gluconate, aspirin, Eliquis 1 tablet b.i.d. REVIEW OF SYSTEMS: As per HPI. PHYSICAL EXAMINATION: VITAL SIGNS: Height of the patient is 5 feet 2 inches. Weight of the patient 292 pounds. Body mass index 53 kg/m2. Temperature afebrile, heart rate 111, blood pressure 113/53. HEENT: PERRLA. Extraocular muscles are intact. NECK: Supple. No carotid bruit or thyromegaly. CHEST: Clear to auscultation. HEART: S1 and S2 regular. ABDOMEN: Soft. EXTREMITIES: Clubbing and cyanosis negative. LABORATORY DATA: EKG shows normal sinus, dated 04/08/2018, rate of 83. Blood workup as follows; WBC 8.4, hemoglobin 8.7, hematocrit 29.1, platelet count 311,000. Chemistry shows sodium 140, potassium 5, chloride , carbon dioxide 20, anion gap of 14, BUN 80, creatinine 2.1. IMPRESSION: A 62-year-old morbidly obese female with past medical history significant for coronary artery disease, status post percutaneous transluminal coronary angioplasty with a bare-metal stent in the past before the pelvic surgery; history of colorectal cancer, status post percutaneous transluminal coronary angioplasty, in the past admitted from the custodial for possible small bowel obstruction and abdominal pain. EKG normal, now patient has a little bit tachycardia multifactorial secondary to underlying abdominal pain and anemia. History of acute kidney injury 09/10/2017, at that time creatinine went up to 4.5 and BUN 106. History of chronic kidney disease, history of colorectal cancer, status post permanent colostomy, history of bare-metal stent in the circumflex in the past as mentioned, history of chronic renal insufficiency, history of deep venous thrombosis and pulmonary embolism, on at one point Xarelto, now patient is on Eliquis for renal adjusted possibly. Last echocardiogram 09/01/2017 shows a preserved left ventricular function, diastolic dysfunction, no significant mitral regurgitation, no significant tricuspid regurgitation, history of deep venous thrombosis and pulmonary embolus, morbid obesity. RECOMMENDATIONS: We will closely monitor, get electrolytes, keep hemoglobin 10, we will start low-dose beta-joseph as blood pressure, heart rate as tolerated. We will follow. Discuss with surgical if the patient needs surgery, patient can go with [id number] risk for underlying comorbidity. We will monitor electrolytes and repeat the renal function in the morning. Patient's critical long-term prognosis is guarded. DE. EKG looks like normal sinus, but given the multiple risk factor cannot rule out, agree to follow up CPK, troponin. Depending upon the blood pressure response, if it remains stable, we will start low-dose beta-joseph. For now, we will continue IV fluid. We will closely monitor. We will hold for now hydralazine because patient has running low blood pressure and continue p.r.n. Also discontinue clonidine patch. If blood pressure tolerate, we will start beta-joseph. We will also hold amlodipine and restart as the blood pressure picks up. We will repeat the EKG in the morning. We will follow with you. Thank you Dr. Florian to providing us an opportunity in taking care of the patient, Pedro Guveara. Pamela Guerrero MD
[2018-04-11] MEDS: Sodium Chloride 0.9% 1,000 ML IV SCH ×2 (02:23→18:14)
[2018-04-11] MEDS: HYDROmorphone 1 mg/ml ISec IVP PRN ×3 (03:23→22:00)
[2018-04-11] MEDS: Metoprolol 1 mg/ml Inj IV SCH ×3 (06:01→12:23)
[2018-04-11] MEDS: metroNIDAZOLE IV 500 mg/100 ml 500 MG/100 ML BAG IVPB SCH ×3 (06:03→22:00)
[2018-04-11 07:02] LABS: ARTERIAL BLOOD GAS HCO3 27.1 mmol/L (21-28); ARTERIAL BLOOD GAS HEMOGLOBIN 9.4 g/dL (11.7-17.4); ARTERIAL BLOOD GAS O2 CAPACITY 12.9 mL/dl (16-24); ARTERIAL BLOOD GAS O2 CONTENT 12.7 ML/dl (15-23); ARTERIAL BLOOD GAS O2 SAT 98.2 % (95-98); ARTERIAL BLOOD GAS PCO2 59 mm/Hg (35-45); ARTERIAL BLOOD GAS PH 7.27 (7.35-7.45); ARTERIAL BLOOD GAS TCO2 28.9 mmol.L (22-28)
[2018-04-11 07:29] LABS: HDL CHOLESTEROL 43 mg/dL (29-60)
[2018-04-11 07:40] LABS: LDL CHOLESTEROL 135 mg/dL (0-129)
[2018-04-11 07:43] LABS: TROPONIN I 0.31 ng/mL
[2018-04-11] MEDS: Arformoterol 15 mcg/2 ml Inh Sol IH SCH ×2 (08:00→20:02)
[2018-04-11] MEDS: Budesonide 0.5 mg/2 ml Inhal Susp UD IH SCH ×2 (08:00→20:02)
[2018-04-11] MEDS ORDERED: Barium Sulfate Susp 2.1% w/v, 2.0% w/w 450 mL Bottle PO ONE (08:06)
[2018-04-11 08:36] LABS: BASO # 0.02 K/mm3 (0.0-2.0); BASO % 0.2 % (0.0-3.0); EOS % 0.2 % (1.5-5.0); GRAN # 8.56 (1.4-6.5); GRAN % 80.4 % (50.0-68.0); HEMOGLOBIN 8.9 g/dL (12.0-16.0); LYMPH # 1.5 (1.2-3.4); LYMPH % 13.7 % (22.0-35.0); MEAN CELL VOLUME 88.2 fl (80.0-105.0); MEAN CORPUSCULAR HEMOGLOBIN 26.3 pg (25.0-35.0); MEAN CORPUSCULAR HGB CONC 29.8 g/dl (31.0-37.0); MONO # 0.6 (0.1-0.6); MONO % 5.5 % (1.0-6.0); RBC 3.39 10^6/uL (3.5-6.1); RED CELL DISTRIBUTION WIDTH 18.8 % (11.5-14.5); WHITE BLOOD COUNT 10.6 10^3/uL (4.5-11.0)
[2018-04-11 08:43] LABS: ALB/GLOB RATIO 0.8 (1.1-1.8)
[2018-04-11] MEDS ORDERED: Sodium Chloride 0.9% 50 ML IV SCH (08:45)
[2018-04-11] MEDS ORDERED: Sodium Chloride 0.9% 1,000 ML IV SCH ×2 (08:45→11:46)
--- NOTE | 2018-04-11 08:56 | CP.PCM.PN ---
Subjective - Date & Time of Evaluation Date of Evaluation: 04/11/18 Time of Evaluation: 08:51 - Subjective Subjective: General Surgery/Surg Onc Dr. Dutta/Dr. Chambers Pt S&E @bedside. Pt had [employer] called yesterday for tachycardia, hypotension, and potential ICU consult. Dr. Florian and conventional underwriter present at bedside at time of [employer]. pt lethargic but responsive, but not complaining of abd pain. Hypotension resolved. 1 episode vomiting overnight, nausea resolved w/ zofran. This AM, pt has no complaints. denies abd pain, N/V. no ostomy output. tolerating diet. Objective - Vital Signs/Intake and Output Vital Signs (last 24 hours): Temp Pulse Resp BP Pulse Ox 98.5 F 91 H 20 179/71 H 97 04/11/18 05:51 04/11/18 06:01 04/11/18 05:51 04/11/18 06:01 04/11/18 05:51 Intake and Output: 04/11/18 04/11/18 06:59 18:59 Intake Total 800 Balance 800 - Medications Medications: Current Medications Amlodipine Besylate (Norvasc) 10 mg PO DAILY [facility] Last Admin: 04/10/18 11:23 Dose: Not Given Arformoterol Tartrate (Brovana) 15 mcg IH [id number] [facility] Last Admin: 04/11/18 08:00 Dose: 15 mcg Budesonide (Pulmicort Respules) 0.5 mg IH [id number] [facility] Last Admin: 04/11/18 08:00 Dose: 0.5 mg Clonidine HCl (Catapres Tts1 0.1 Mg/24 Hr) 1 patch TD Q7D@1000 [facility] Enoxaparin Sodium (Lovenox) 40 mg SC DAILY [facility]; Protocol Last Admin: 04/10/18 11:21 Dose: 40 mg Hydralazine HCl (Apresoline) 10 mg IVP Q6 PRN PRN Reason: Systolic Blood Pressure Last Admin: 04/11/18 02:23 Dose: 10 mg Hydralazine HCl (Apresoline) 50 mg PO TID [facility] Last Admin: 04/10/18 13:36 Dose: Not Given Hydromorphone HCl (Dilaudid) 1 mg IVP Q4H PRN PRN Reason: Pain, moderate (4-7) Last Admin: 04/11/18 03:23 Dose: 1 mg Metronidazole (Flagyl) 500 mg in 100 mls @ 100 mls/hr IVPB Q8 [facility]; Protocol Last Admin: 04/11/18 06:03 Dose: 100 mls/hr Ceftriaxone Sodium (Rocephin 1 Gram Ivpb) 1 gm in 100 mls @ 100 mls/hr IVPB DAILY [facility]; Protocol Last Admin: 04/10/18 11:22 Dose: 100 mls/hr Sodium Chloride (Sodium Chloride 0.9%) 1,000 mls @ 50 mls/hr IV .Q20H [facility] Insulin Human Regular (Humulin R Low) 0 units SC ACHS [facility]; Protocol Last Admin: 04/10/18 22:09 Dose: Not Given Methylprednisolone (Solu-Medrol) 30 mg IVP Q12 [facility] Metoprolol Succinate (Toprol Xl) 100 mg PO BRK JR Metoprolol Tartrate (Lopressor) 5 mg IV Q6H [facility] Last Admin: 04/11/18 06:01 Dose: 5 mg Ondansetron HCl (Zofran Inj) 4 mg IVP Q6H PRN PRN Reason: Nausea/Vomiting Last Admin: 04/11/18 04:00 Dose: 4 mg Pantoprazole Sodium (Protonix Inj) 40 mg IVP DAILY [facility] Last Admin: 04/10/18 11:22 Dose: 40 mg - Labs Labs: 04/11/18 07:00 04/11/18 07:00 PT 12.4 SECONDS (9.4-12.5) 04/08/18 22:30 INR 1.09 04/08/18 22:30 APTT 29.8 Seconds (25.1-36.5) 04/08/18 22:30 - Constitutional Appears: Non-toxic, No Acute Distress - Head Exam Head Exam: NORMAL INSPECTION - Eye Exam Eye Exam: Normal appearance - ENT Exam ENT Exam: Mucous Membranes Moist - Respiratory Exam Respiratory Exam: NORMAL BREATHING PATTERN. absent: Accessory Muscle Use, Respiratory Distress - Cardiovascular Exam Cardiovascular Exam: Tachycardia. absent: Bradycardia - GI/Abdominal Exam GI & Abdominal Exam: Soft. absent: Distended, Guarding, Tenderness, Rebound Additional comments: stoma pink, patent ostomy bag empty to stool palpable on digital exam. - Extremities Exam Extremities Exam: Normal Inspection - Neurological Exam Neurological Exam: Alert, Awake, Oriented x3 - Psychiatric Exam Psychiatric exam: Normal Affect, Normal Mood - Skin Skin Exam: Dry, Intact, Normal Color, Warm Assessment and Plan - Assessment and Plan (Free Text) Assessment: 62 y/o F w/ APR and blind loop colostomy 2/2 rectal adenocarcinoma c/o abd pain Plan: - NPO vs CLD - cont IVF - monitor ostomy output - soap suds enema - stool softeners - non-narcotic pain management - zofran/reglan for nausea - NGT if vomiting develops Pt discussed w/ Dr. Dutta and Dr. Trish Wilkinson DO PGY3
--- NOTE | 2018-04-11 09:13 | CP.PCM.PN ---
Subjective - Date & Time of Evaluation Date of Evaluation: 04/11/18 Time of Evaluation: 06:20 - Subjective Subjective: Awake, alert, no distress Reason for consultation and follow up: Cardiac evaluation of tachycardia, history of coronary artery disease, admitted for possible bowel obstruction Seen and examined by me and Dr. Guerrero Objective - Vital Signs/Intake and Output Vital Signs (last 24 hours): Temp Pulse Resp BP Pulse Ox 98.5 F 91 H 20 179/71 H 97 04/11/18 05:51 04/11/18 06:01 04/11/18 05:51 04/11/18 06:01 04/11/18 05:51 Intake and Output: 04/11/18 04/11/18 06:59 18:59 Intake Total 800 Balance 800 - Medications Medications: Current Medications Amlodipine Besylate (Norvasc) 10 mg PO DAILY [facility] Last Admin: 04/10/18 11:23 Dose: Not Given Arformoterol Tartrate (Brovana) 15 mcg IH [id number] [facility] Last Admin: 04/11/18 08:00 Dose: 15 mcg Budesonide (Pulmicort Respules) 0.5 mg IH [id number] [facility] Last Admin: 04/11/18 08:00 Dose: 0.5 mg Clonidine HCl (Catapres Tts1 0.1 Mg/24 Hr) 1 patch TD Q7D@1000 JR Enoxaparin Sodium (Lovenox) 40 mg SC DAILY [facility]; Protocol Last Admin: 04/10/18 11:21 Dose: 40 mg Hydralazine HCl (Apresoline) 10 mg IVP Q6 PRN PRN Reason: Systolic Blood Pressure Last Admin: 04/11/18 02:23 Dose: 10 mg Hydralazine HCl (Apresoline) 50 mg PO TID [facility] Last Admin: 04/10/18 13:36 Dose: Not Given Hydralazine HCl (Apresoline) 50 mg PO BID [facility] Hydromorphone HCl (Dilaudid) 1 mg IVP Q4H PRN PRN Reason: Pain, moderate (4-7) Last Admin: 04/11/18 03:23 Dose: 1 mg Metronidazole (Flagyl) 500 mg in 100 mls @ 100 mls/hr IVPB Q8 [facility]; Protocol Last Admin: 04/11/18 06:03 Dose: 100 mls/hr Ceftriaxone Sodium (Rocephin 1 Gram Ivpb) 1 gm in 100 mls @ 100 mls/hr IVPB DAILY [facility]; Protocol Last Admin: 04/10/18 11:22 Dose: 100 mls/hr Sodium Chloride (Sodium Chloride 0.9%) 1,000 mls @ 50 mls/hr IV .Q20H [facility] Insulin Human Regular (Humulin R Low) 0 units SC ACHS [facility]; Protocol Last Admin: 04/10/18 22:09 Dose: Not Given Methylprednisolone (Solu-Medrol) 30 mg IVP Q12 [facility] Metoprolol Succinate (Toprol Xl) 100 mg PO BRK JR Metoprolol Tartrate (Lopressor) 5 mg IV Q6H [facility] Last Admin: 04/11/18 06:01 Dose: 5 mg Ondansetron HCl (Zofran Inj) 4 mg IVP Q6H PRN PRN Reason: Nausea/Vomiting Last Admin: 04/11/18 04:00 Dose: 4 mg Pantoprazole Sodium (Protonix Inj) 40 mg IVP DAILY [facility] Last Admin: 04/10/18 11:22 Dose: 40 mg - Labs Labs: 04/11/18 07:00 04/11/18 07:00 PT 12.4 SECONDS (9.4-12.5) 04/08/18 22:30 INR 1.09 04/08/18 22:30 APTT 29.8 Seconds (25.1-36.5) 04/08/18 22:30 - Constitutional Appears: Non-toxic, No Acute Distress - Head Exam Head Exam: NORMAL INSPECTION, NORMOCEPHALIC - Eye Exam Eye Exam: Normal appearance Pupil Exam: NORMAL ACCOMODATION - ENT Exam ENT Exam: Mucous Membranes Dry - Respiratory Exam Respiratory Exam: Decreased Breath Sounds, Clear to Ausculation Bilateral, NORMAL BREATHING PATTERN - Cardiovascular Exam Cardiovascular Exam: REGULAR RHYTHM, +S1, +S2 Additional comments: no JVD Telemetry NSR 90's right chest port/accessed - GI/Abdominal Exam GI & Abdominal Exam: Soft, Normal Bowel Sounds Additional comments: colostomy - Neurological Exam Neurological Exam: Alert, Awake, Oriented x3 - Psychiatric Exam Psychiatric exam: Normal Affect, Normal Mood - Skin Skin Exam: Dry, Normal Color, Warm Assessment and Plan - Assessment and Plan (Free Text) Assessment: A 62 year old morbidly obese female who came in from [facility] to the ER due to diffuse abdominal pain and abnormal lab results. History of DVT/PE on Eliquis, COPD, CKD, anemia, colorectal cancer s/p resection with colostomy, CAD with stent placement,hypertension, and chronic back pain, Plan: Post [employer] last night for hypotension and tachycardia elevated potassium , kayexalate was ordered but unable to tolerate due to nausea D50W and insulin given No distress, denies shortness of breath this morning Uncontrolled blood pressure Hydralazine PRN Heart rate controlled Troponin today 0.31 maybe due to renal insufficency Denies chest pain or shortness of breath BUN/Creatinine 67/2.1 K-5.2, will give Kayexalate Continue current treatment Continue current medications chart reviewed Will follow up Plan and treatment discussed with Dr. Guerrero
[2018-04-11] MEDS ORDERED: Sod Polystyrene Sulf 15 gm/60 ml Susp PO ONE (09:31)
--- NOTE | 2018-04-11 09:55 | CARD ---
APPROVED REPORT Date of service: 04/11/2018 EKG Measurement Heart [id number] <Conclusion> Sinus tachycardia Nonspecific ST abnormality Abnormal ECG
--- NOTE | 2018-04-11 11:03 | CP.PCM.CON ---
History of Present Illness - History of Present Illness History of Present Illness: 62 year old female with PMH of COPD, history of VRE UTI, DM, HTN, CAD, history of unresectable rectal cancer S/P chemotherapy and radiation therapy S/P colostomy S/P Port-a-cath placement, morbid obesity with BMI 50, obstructive sleep apnea, history of pulmonary embolism S/P IVC filter placement, history of severe sepsis secondary to left medial thigh abscess, growing Proteus, S/P incision and drainage came in to [facility] because of crampy abdominal pain which has been intermittent for the past day with some nausea and decreased flatus and decreased ostomy output. She denies vomiting, no no fever or chills, no diarrhea, no chest pain, no SOB, no cough or colds, no headache or dizziness, no dysuria, no sore throat. CT A/P was done which is showing a large ventral hernia and possible partial small bowel obstruction. Patient currently does not have leukocytosis. Infectious diseases consult is requested to further evaluate and manage. Review of Systems - Review of Systems All systems: reviewed and no additional remarkable complaints except (as per HPI) Past Patient History - Infectious Disease Hx of Infectious Diseases: None - Tetanus Immunizations Tetanus Immunization: Unknown - Past Social History Smoking Status: Never Smoked - CARDIAC Hx Cardiac Disorders: Yes (CAD) Hx Congestive Heart Failure: Yes Hx Hypercholesterolemia: Yes Hx Hypertension: Yes - PULMONARY Hx Respiratory Disorders: Yes Hx Bronchitis: Yes Hx Chronic Obstructive Pulmonary Disease (COPD): Yes - NEUROLOGICAL Hx Neurological Disorder: Yes Hx Dizziness: Yes - HEENT Hx HEENT Problems: No Hx Macular Degeneration: No - RENAL Hx Renal Failure: Yes - ENDOCRINE/METABOLIC Hx Endocrine Disorders: Yes Hx Diabetes Mellitus Type 2: Yes - HEMATOLOGICAL/ONCOLOGICAL Hx Blood Disorders: Yes Hx Cancer: Yes (COLON CA,RECTAL ADENOCARCINOMA WITH COLON RESECTION WITH COLOSTOMY.) - INTEGUMENTARY Hx Dermatological Problems: Yes Other/Comment: MASD UNDER FOLDS OF SKIN,SPECIALLY UNDER THE BREAST ,GROIN AREA. IASD IN BETWEEN BUTTOCKS ,SKIN IS RED FLUSHED. - MUSCULOSKELETAL/RHEUMATOLOGICAL Hx Musculoskeletal Disorders: Yes Hx Falls: No Hx Unsteady Gait: Yes - GASTROINTESTINAL Hx Gastrointestinal Disorders: Yes (RECTAL CA WITH COLOSTOMY,GI BLEED) - GENITOURINARY/GYNECOLOGICAL Hx Genitourinary Disorders: Yes (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,UTI) - PSYCHIATRIC Hx Psychophysiologic Disorder: Yes Hx Anxiety: Yes - SURGICAL HISTORY Hx Surgeries: Yes Hx Appendectomy: Yes Hx Coronary Stent: Yes Other/Comment: colostomy - ANESTHESIA Hx Anesthesia: Yes Hx Anesthesia Reactions: No Hx Malignant Hyperthermia: No Meds Allergies/Adverse Reactions: Allergies Allergy/AdvReac Type Severity Reaction Status Date / Time No Known Allergies Allergy Verified 04/08/18 21:16 - Medications Medications: Current Medications Amlodipine Besylate (Norvasc) 10 mg PO DAILY ON [facility] OF [facility] Last Admin: 04/10/18 11:23 Dose: Not Given Arformoterol Tartrate (Brovana) 15 mcg IH [id number] ON [facility] OF [facility] Last Admin: 04/11/18 08:00 Dose: 15 mcg Budesonide (Pulmicort Respules) 0.5 mg IH [id number] ON [facility] OF [facility] Last Admin: 04/11/18 08:00 Dose: 0.5 mg Clonidine HCl (Catapres Tts1 0.1 Mg/24 Hr) 1 patch TD Q7D@1000 JR Enoxaparin Sodium (Lovenox) 40 mg SC DAILY ON [facility] OF [facility]; Protocol Last Admin: 04/10/18 11:21 Dose: 40 mg Hydralazine HCl (Apresoline) 10 mg IVP Q6 PRN PRN Reason: Systolic Blood Pressure Last Admin: 04/11/18 02:23 Dose: 10 mg Hydralazine HCl (Apresoline) 50 mg PO TID ON [facility] OF [facility] Last Admin: 04/10/18 13:36 Dose: Not Given Hydralazine HCl (Apresoline) 50 mg PO BID ON [facility] Hydromorphone HCl (Dilaudid) 1 mg IVP Q4H PRN PRN Reason: Pain, moderate (4-7) Last Admin: 04/11/18 03:23 Dose: 1 mg Metronidazole (Flagyl) 500 mg in 100 mls @ 100 mls/hr IVPB Q8 ON [facility] OF [facility]; Protocol Last Admin: 04/11/18 06:03 Dose: 100 mls/hr Ceftriaxone Sodium (Rocephin 1 Gram Ivpb) 1 gm in 100 mls @ 100 mls/hr IVPB DAILY ON [facility]; Protocol Last Admin: 04/10/18 11:22 Dose: 100 mls/hr Sodium Chloride (Sodium Chloride 0.9%) 1,000 mls @ 50 mls/hr IV .Q20H ON [facility] OF [facility] Insulin Human Regular (Humulin R Low) 0 units SC ACHS ON [facility] OF [facility]; Protocol Last Admin: 04/10/18 22:09 Dose: Not Given Methylprednisolone (Solu-Medrol) 30 mg IVP Q12 ON [facility] OF [facility] Metoprolol Succinate (Toprol Xl) 100 mg PO BRK ON LICENSE OF [facility] Metoprolol Tartrate (Lopressor) 5 mg IV Q6H ON [facility] OF [facility] Last Admin: 04/11/18 06:01 Dose: 5 mg Ondansetron HCl (Zofran Inj) 4 mg IVP Q6H PRN PRN Reason: Nausea/Vomiting Last Admin: 04/11/18 04:00 Dose: 4 mg Pantoprazole Sodium (Protonix Inj) 40 mg IVP DAILY ON [facility] Last Admin: 04/10/18 11:22 Dose: 40 mg Physical Exam - Constitutional Appears: Chronically Ill - Head Exam Head Exam: NORMAL INSPECTION - ENT Exam ENT Exam: Mucous Membranes Moist - Neck Exam Neck exam: Negative for: Meningismus - Respiratory Exam Respiratory Exam: Decreased Breath Sounds - Cardiovascular Exam Cardiovascular Exam: +S1, +S2 - GI/Abdominal Exam GI & Abdominal Exam: Soft. absent: Tenderness Additional comments: colostomy in place Results - Vital Signs Recent Vital Signs: Last Vital Signs Temp 98.5 F 04/11/18 05:51 Pulse 91 H 04/11/18 06:01 Resp 20 04/11/18 05:51 BP 179/71 H 04/11/18 06:01 Pulse Ox 97 04/11/18 05:51 - Labs Result Diagrams: 04/11/18 07:00 04/11/18 07:00 Labs: Laboratory Results - last 24 hr 04/10/18 04/10/18 04/10/18 08:00 09:00 09:00 WBC RBC Hgb Hct MCV MCH MCHC RDW Plt Count MPV Gran % Lymph % (Auto) [place] % (Auto) Eos % (Auto) Baso % (Auto) Gran # Lymph # (Auto) [place] # (Auto) Eos # (Auto) Baso # (Auto) pCO2 pO2 HCO3 ABG pH ABG Total CO2 ABG O2 Saturation ABG O2 Content ABG Base Excess ABG Hemoglobin ABG Carboxyhemoglobin POC ABG HHb (Measured) ABG Methemoglobin ABG O2 Capacity VBG pH VBG pCO2 VBG HCO3 VBG Total CO2 VBG O2 Sat (Calc) VBG Base Excess VBG Potassium Hgb O2 Saturation Glucose Lactate FiO2 Sodium 143 Potassium 5.6 H* Chloride 114 H Carbon Dioxide 20 L Anion Gap 14 BUN 80 H Creatinine 2.1 H Est GFR ( Amer) 29 Est GFR (Non-Af Amer) 24 POC Glucose (mg/dL) Random Glucose 181 H Calcium 9.1 Phosphorus Magnesium Transferrin 108.61 L Ferritin 301.0 Total Bilirubin 0.3 AST 32 ALT 30 Alkaline Phosphatase 152 H Lactate Dehydrogenase Total Creatine Kinase Troponin I Total Protein 6.3 Albumin 2.8 L Globulin 3.5 Albumin/Globulin Ratio 0.8 L Triglycerides Cholesterol LDL Cholesterol Direct HDL Cholesterol Vitamin B12 > 1000 H Folate > 20.0 TSH 3rd Generation Venous Blood Potassium 04/10/18 04/10/18 04/10/18 11:12 16:40 17:31 WBC RBC Hgb Hct MCV MCH MCHC RDW Plt Count MPV Gran % Lymph % (Auto) [place] % (Auto) Eos % (Auto) Baso % (Auto) Gran # Lymph # (Auto) [place] # (Auto) Eos # (Auto) Baso # (Auto) pCO2 pO2 178 H HCO3 ABG pH ABG Total CO2 ABG O2 Saturation ABG O2 Content ABG Base Excess ABG Hemoglobin ABG Carboxyhemoglobin POC ABG HHb (Measured) ABG Methemoglobin ABG O2 Capacity VBG pH 7.25 L VBG pCO2 57.0 VBG HCO3 25.0 VBG Total CO2 26.7 VBG O2 Sat (Calc) 99.3 H VBG Base Excess -3.1 L VBG Potassium 5.4 H Hgb O2 Saturation Glucose 311 H Lactate 0.9 FiO2 21.0 Sodium 143 145.0 Potassium 5.2 H Chloride 111 H 115.0 H Carbon Dioxide 24 Anion Gap 13 BUN 72 H Creatinine 2.0 H Est GFR ( Amer) 30 Est GFR (Non-Af Amer) 25 POC Glucose (mg/dL) 171 H Random Glucose 207 H Calcium 8.9 Phosphorus Magnesium Transferrin Ferritin Total Bilirubin 0.5 AST 31 ALT 23 Alkaline Phosphatase 157 H Lactate Dehydrogenase Total Creatine Kinase Troponin I 0.14 H* D Total Protein 6.8 Albumin 3.1 Globulin 3.8 Albumin/Globulin Ratio 0.8 L Triglycerides Cholesterol LDL Cholesterol Direct HDL Cholesterol Vitamin B12 Folate TSH 3rd Generation Venous Blood Potassium 5.4 H 04/10/18 04/10/18 04/11/18 17:31 21:07 06:50 WBC 10.2 D RBC 3.27 L Hgb 8.5 L Hct 28.9 L MCV 88.4 MCH 26.0 MCHC 29.4 L RDW 18.3 H Plt Count 295 MPV 11.0 Gran % 83.8 H Lymph % (Auto) 8.5 L [place] % (Auto) 7.2 H Eos % (Auto) 0.3 L Baso % (Auto) 0.2 Gran # 8.54 H Lymph # (Auto) 0.9 L [place] # (Auto) 0.7 H Eos # (Auto) 0.0 Baso # (Auto) 0.02 pCO2 59 H pO2 83.0 HCO3 27.1 ABG pH 7.27 L ABG Total CO2 28.9 H ABG O2 Saturation 98.2 H ABG O2 Content 12.7 L ABG Base Excess -0.4 ABG Hemoglobin 9.4 L ABG Carboxyhemoglobin 1.8 H POC ABG HHb (Measured) 1.8 ABG Methemoglobin 0.9 ABG O2 Capacity 12.9 L VBG pH VBG pCO2 VBG HCO3 VBG Total CO2 VBG O2 Sat (Calc) VBG Base Excess VBG Potassium Hgb O2 Saturation 95.5 Glucose Lactate FiO2 40.0 Sodium Potassium Chloride Carbon Dioxide Anion Gap BUN Creatinine Est GFR ( Amer) Est GFR (Non-Af Amer) POC Glucose (mg/dL) 211 H Random Glucose Calcium Phosphorus Magnesium Transferrin Ferritin Total Bilirubin AST ALT Alkaline Phosphatase Lactate Dehydrogenase Total Creatine Kinase Troponin I Total Protein Albumin Globulin Albumin/Globulin Ratio Triglycerides Cholesterol LDL Cholesterol Direct HDL Cholesterol Vitamin B12 Folate TSH 3rd Generation Venous Blood Potassium 04/11/18 04/11/18 04/11/18 07:00 07:00 07:00 WBC 10.6 RBC 3.39 L Hgb 8.9 L Hct 29.9 L MCV 88.2 MCH 26.3 MCHC 29.8 L RDW 18.8 H Plt Count 286 MPV 11.0 Gran % 80.4 H Lymph % (Auto) 13.7 L [place] % (Auto) 5.5 Eos % (Auto) 0.2 L Baso % (Auto) 0.2 Gran # 8.56 H Lymph # (Auto) 1.5 [place] # (Auto) 0.6 Eos # (Auto) 0.0 Baso # (Auto) 0.02 pCO2 pO2 HCO3 ABG pH ABG Total CO2 ABG O2 Saturation ABG O2 Content ABG Base Excess ABG Hemoglobin ABG Carboxyhemoglobin POC ABG HHb (Measured) ABG Methemoglobin ABG O2 Capacity VBG pH VBG pCO2 VBG HCO3 VBG Total CO2 VBG O2 Sat (Calc) VBG Base Excess VBG Potassium Hgb O2 Saturation Glucose Lactate FiO2 Sodium Potassium Chloride Carbon Dioxide Anion Gap BUN Creatinine Est GFR ( Amer) Est GFR (Non-Af Amer) POC Glucose (mg/dL) Random Glucose Calcium Phosphorus 4.0 Magnesium 1.7 Transferrin Ferritin Total Bilirubin AST ALT Alkaline Phosphatase Lactate Dehydrogenase 515 Total Creatine Kinase < 20 L Troponin I 0.31 H* D Total Protein Albumin Globulin Albumin/Globulin Ratio Triglycerides 77 Cholesterol 195 LDL Cholesterol Direct 135 H HDL Cholesterol 43 Vitamin B12 Folate TSH 3rd Generation 0.85 Venous Blood Potassium 04/11/18 04/11/18 07:00 07:38 WBC RBC Hgb Hct MCV MCH MCHC RDW Plt Count MPV Gran % Lymph % (Auto) [place] % (Auto) Eos % (Auto) Baso % (Auto) Gran # Lymph # (Auto) [place] # (Auto) Eos # (Auto) Baso # (Auto) pCO2 pO2 HCO3 ABG pH ABG Total CO2 ABG O2 Saturation ABG O2 Content ABG Base Excess ABG Hemoglobin ABG Carboxyhemoglobin POC ABG HHb (Measured) ABG Methemoglobin ABG O2 Capacity VBG pH VBG pCO2 VBG HCO3 VBG Total CO2 VBG O2 Sat (Calc) VBG Base Excess VBG Potassium Hgb O2 Saturation Glucose Lactate FiO2 Sodium 145 Potassium 5.2 H Chloride 113 H Carbon Dioxide 28 Anion Gap 9 L BUN 67 H Creatinine 2.1 H Est GFR ( Amer) 29 Est GFR (Non-Af Amer) 24 POC Glucose (mg/dL) 182 H Random Glucose 194 H Calcium 9.0 Phosphorus Magnesium Transferrin Ferritin Total Bilirubin 0.4 AST 36 ALT 23 Alkaline Phosphatase 158 H Lactate Dehydrogenase Total Creatine Kinase Troponin I Total Protein 6.9 Albumin 3.0 Globulin 3.8 Albumin/Globulin Ratio 0.8 L Triglycerides Cholesterol LDL Cholesterol Direct HDL Cholesterol Vitamin B12 Folate TSH 3rd Generation Venous Blood Potassium Assessment & Plan - Assessment and Plan (Free Text) Plan: Assessment consider partial small bowel obstruction COPD history of VRE UTI history of severe sepsis secondary to left medial thigh abscess, growing Proteus, S/P incision and drainage DM HTN CAD Unresectable rectal cancer S/P chemotherapy and radiation therapy S/P colostomy S/P Port-a-cath placement morbid obesity with BMI 50 obstructive sleep apnea history of pulmonary embolism S/P IVC filter placement Plan patient has been started on Rocephin and Flagyl - will keep while patient is NPO and will await blood cx follow up further plans of surgery and see how her diet is advanced will monitor clinically
--- NOTE | 2018-04-11 11:38 | CP.PCM.PN ---
<Jung Alaniz - Last Filed: 04/11/18 11:39> Subjective - Date & Time of Evaluation Date of Evaluation: 04/11/18 Time of Evaluation: 11:35 - Subjective Subjective: PGY-[address] note for Dr Benitez Yesterday evening patient had a CNS called for hypotension and tachycardia. 1 episode vomiting overnight, nausea resolved w/ zofran. Patient was evaluated by cardio Dr Guerrero. Infectious disease is also now on board. Today patient stated she had diffuse abdominal pain. Passing flatus. Objective - Vital Signs/Intake and Output Vital Signs (last 24 hours): Temp Pulse Resp BP Pulse Ox 98.5 F 91 H 20 179/71 H 97 04/11/18 05:51 04/11/18 06:01 04/11/18 05:51 04/11/18 06:01 04/11/18 05:51 Intake and Output: 04/11/18 04/11/18 06:59 18:59 Intake Total 800 Balance 800 - Medications Medications: Current Medications Amlodipine Besylate (Norvasc) 10 mg PO DAILY [facility] Last Admin: 04/10/18 11:23 Dose: Not Given Arformoterol Tartrate (Brovana) 15 mcg IH [id number] [facility] Last Admin: 04/11/18 08:00 Dose: 15 mcg Budesonide (Pulmicort Respules) 0.5 mg IH [id number] [facility] Last Admin: 04/11/18 08:00 Dose: 0.5 mg Clonidine HCl (Catapres Tts1 0.1 Mg/24 Hr) 1 patch TD Q7D@1000 [facility] Enoxaparin Sodium (Lovenox) 40 mg SC DAILY [facility]; Protocol Last Admin: 04/10/18 11:21 Dose: 40 mg Hydralazine HCl (Apresoline) 10 mg IVP Q6 PRN PRN Reason: Systolic Blood Pressure Last Admin: 04/11/18 02:23 Dose: 10 mg Hydralazine HCl (Apresoline) 50 mg PO TID [facility] Last Admin: 04/10/18 13:36 Dose: Not Given Hydralazine HCl (Apresoline) 50 mg PO BID [facility] Hydromorphone HCl (Dilaudid) 1 mg IVP Q4H PRN PRN Reason: Pain, moderate (4-7) Last Admin: 04/11/18 03:23 Dose: 1 mg Metronidazole (Flagyl) 500 mg in 100 mls @ 100 mls/hr IVPB Q8 [facility]; Protocol Last Admin: 04/11/18 06:03 Dose: 100 mls/hr Ceftriaxone Sodium (Rocephin 1 Gram Ivpb) 1 gm in 100 mls @ 100 mls/hr IVPB DAILY [facility]; Protocol Last Admin: 04/10/18 11:22 Dose: 100 mls/hr Sodium Chloride (Sodium Chloride 0.9%) 1,000 mls @ 50 mls/hr IV .Q20H [facility] Insulin Human Regular (Humulin R Low) 0 units SC ACHS [facility]; Protocol Last Admin: 04/10/18 22:09 Dose: Not Given Methylprednisolone (Solu-Medrol) 30 mg IVP Q12 JR Metoprolol Succinate (Toprol Xl) 100 mg PO BRK JR Metoprolol Tartrate (Lopressor) 5 mg IV Q6H [facility] Last Admin: 04/11/18 06:01 Dose: 5 mg Ondansetron HCl (Zofran Inj) 4 mg IVP Q6H PRN PRN Reason: Nausea/Vomiting Last Admin: 04/11/18 04:00 Dose: 4 mg Pantoprazole Sodium (Protonix Inj) 40 mg IVP DAILY [facility] Last Admin: 04/10/18 11:22 Dose: 40 mg - Labs Labs: 04/11/18 07:00 04/11/18 07:00 PT 12.4 SECONDS (9.4-12.5) 04/08/18 22:30 INR 1.09 04/08/18 22:30 APTT 29.8 Seconds (25.1-36.5) 04/08/18 22:30 - Additional Findings Additional findings: - Constitutional Appears: Non-toxic, No Acute Distress - Head Exam Head Exam: NORMAL INSPECTION - Eye Exam Eye Exam: Normal appearance - ENT Exam ENT Exam: Mucous Membranes Moist - Respiratory Exam Respiratory Exam: NORMAL BREATHING PATTERN. absent: Accessory Muscle Use, Respiratory Distress - Cardiovascular Exam Cardiovascular Exam: absent: Bradycardia, Tachycardia - GI/Abdominal Exam GI & Abdominal Exam: Distended (obese), Hernia (parastomal and ventral wall), Soft. absent: Guarding, Rebound Additional comments: loop colostomy w/o ostomy output stoma pink, patent - Extremities Exam Extremities exam: Positive for: normal inspection - Neurological Exam Neurological exam: Alert, Oriented x3 - Psychiatric Exam Psychiatric exam: Normal Affect, Normal Mood - Skin Skin Exam: Dry, Intact, Normal Color, Warm Assessment and Plan - Assessment and Plan (Free Text) Plan: Mrs Guevara is a 62 year old female with a PMHx of CAD, diastolic CHF, DM2, HTN, CKD, DVT/PE on eliquis, w/ loop colostomy 2/2 rectal adenocarcinoma presents to the ED sent from [facility] at direction of PMD for abd pain and low hemoglobin: Partial Small Bowel Obstruction Loop Colostomy 2/2 Rectal Adenocarcinoma Non-obstructing Paracolostomy Hernia -CT scan as read by Dr Benitez shows a paracolostomy hernia that does not appe ar to be obstructed -rectal CA (2013) s/p chemoradiation, colostomy, PET scan 2016 - no systemic dis ease, CEA 09/2017 4.4, CEA 02/2018 5.4 -iron studies from last month indicative of anemia of chronic disease/anemia of chronic kidney disease, Hgb ranges from 8 to 10 over the last two years, no evidence of ed bleeding at this time, however GI bleed cannot be ruled out -would continue OAC consider previous b/l PE and no signs of major bleed at this time. However, she must be monitored closely -tolerating clear liquid diet -continue PPI, IVF, NGT if vomiting develops, stool softeners -monitor ostomy site output for melena, bloody -started on rocephin and flagyl by ID -would recommend pulmonary evaluation, optimization -very complex, non-compliant patient currently with acute on chronic conditions. She is at very high risk for intraoperative complication. Will need to discuss with primary, anesthesia, cardiology, pulmonology before any endoscopic procedures to be done. Seen and discussed with Dr Benitez <Gita Benitez V - Last Filed: 04/11/18 23:56> Objective - Vital Signs/Intake and Output Vital Signs (last 24 hours): Temp Pulse Resp BP Pulse Ox 98.9 F 110 H 20 192/93 H 97 04/11/18 12:00 04/11/18 23:39 04/11/18 12:00 04/11/18 18:19 04/11/18 05:51 Intake and Output: 11/08/18 11/09/18 18:59 06:59 Intake Total 900 Balance 900 - Medications Medications: Current Medications Arformoterol Tartrate (Brovana) 15 mcg IH [id number] [facility] Last Admin: 04/11/18 20:02 Dose: 15 mcg Budesonide (Pulmicort Respules) 0.5 mg IH [id number] [facility] Last Admin: 04/11/18 20:02 Dose: 0.5 mg Clonidine HCl (Catapres-Tts3 0.3 Mg/24 Hr) 1 patch TD Q7D@1000 JR Last Admin: 04/11/18 18:17 Dose: 1 patch Docusate Sodium (Colace) 100 mg PO TID [facility] Last Admin: 04/11/18 18:18 Dose: Not Given Enoxaparin Sodium (Lovenox) 40 mg SC DAILY [facility]; Protocol Last Admin: 04/11/18 12:06 Dose: 40 mg Hydralazine HCl (Apresoline) 50 mg PO BID [facility] Last Admin: 04/11/18 18:15 Dose: Not Given Hydralazine HCl (Apresoline) 10 mg IVP Q4 PRN PRN Reason: Systolic Blood Pressure Last Admin: 04/11/18 18:15 Dose: 10 mg Hydromorphone HCl (Dilaudid) 1 mg IVP Q4H PRN PRN Reason: Pain, moderate (4-7) Last Admin: 04/11/18 22:00 Dose: 1 mg Metronidazole (Flagyl) 500 mg in 100 mls @ 100 mls/hr IVPB Q8 [facility]; Protocol Last Admin: 04/11/18 22:00 Dose: 100 mls/hr Ceftriaxone Sodium (Rocephin 1 Gram Ivpb) 1 gm in 100 mls @ 100 mls/hr IVPB DAILY [facility]; Protocol Last Admin: 04/11/18 12:07 Dose: 100 mls/hr Sodium Chloride (Sodium Chloride 0.9%) 1,000 mls @ 75 mls/hr IV .[id number] [facility] Last Admin: 04/11/18 18:14 Dose: 75 mls/hr Insulin Human Regular (Humulin R Low) 0 units SC ACHS [facility]; Protocol Last Admin: 04/11/18 22:03 Dose: Not Given Labetalol HCl (Trandate) 10 mg IV Q6 [facility] Last Admin: 04/11/18 18:19 Dose: 10 mg Levalbuterol HCl (Xopenex) 1.25 mg IH [id number] PRN PRN Reason: Shortness of Breath Methylprednisolone (Solu-Medrol) 30 mg IVP Q12 [facility] Last Admin: 04/11/18 22:00 Dose: 30 mg Ondansetron HCl (Zofran Inj) 4 mg IVP Q6H PRN PRN Reason: Nausea/Vomiting Last Admin: 04/11/18 12:10 Dose: 4 mg Pantoprazole Sodium (Protonix Inj) 40 mg IVP DAILY [facility] Last Admin: 04/11/18 12:05 Dose: 40 mg - Labs Labs: 04/11/18 07:00 04/11/18 07:00 PT 12.4 SECONDS (9.4-12.5) 04/08/18 22:30 INR 1.09 04/08/18 22:30 APTT 29.8 Seconds (25.1-36.5) 04/08/18 22:30 Attending/Attestation - Attestation I have personally seen and examined this patient.: Yes I have fully participated in the care of the patient.: Yes I have reviewed all pertinent clinical information, including history, physical exam and plan: Yes Notes (Text): This is an addendum to GI followup report dictated by the Shuttle Route Vehicle Operator. The patient was seen and evaluated earlier. Medical records, lab studies, imagings were reviewed. Last 24 hours events reviewed. Agreed with the above treatment plan as outlined in Shuttle Route Vehicle Operator 's notes with the addition of the following 04/11/18 23:56
[2018-04-11] MEDS: Enoxaparin 40 mg Syringe SC SCH (12:06)
[2018-04-11] MEDS: MethylPREDNISolone 40 mg Vial IVP SCH ×2 (12:06→22:00)
[2018-04-11] MEDS: cefTRIAXone 1 gm 1 GM/100 ML BAG IVPB SCH (12:07)
--- NOTE | 2018-04-11 12:11 | PN ---
DATE: 04/10/2018 SUBJECTIVE: The patient was transferred to telemetry because of uncontrolled blood pressure and her comorbid illnesses, anemia. During the round, patient had low blood pressure, it was 90/60. She received Norvasc, metoprolol, clonidine and was given IV fluid. Blood pressure went up to 111 systolic and she seems otherwise stable on BiPAP. She has no chest pain. She did complain occasionally of intermittently abdominal discomfort. Surgical consult is seeing the patient on the bedside. Patient did have nausea. PHYSICAL EXAMINATION: VITAL SIGNS: Temperature 99.3, heart rate 109, blood pressure 111/53, respiration 21, saturation is by the machine 94%. HEAD AND NECK: Normal. No JVD. No thyromegaly. CHEST: Clear, diminished breath sounds bilaterally. CARDIAC: First sound and second sounds are normal. ABDOMEN: Obese, soft, nontender and colostomy bag. EXTREMITIES: No edema. NEUROLOGIC: Normal. LABORATORY DATA: On 04/10/2018, white count 10.2, hemoglobin 8.5, hematocrit 28.9, platelets 295. Her chemistry shows sodium 143, potassium initially 5.9 and on repeat was still high, now it is 5.2, chloride 111, bicarbonate is 24, BUN 72, creatinine is 2. Patient's blood sugar is 207, calcium 8.9. Patient has positive troponin 0.14. She also had liver functions test normal. Her LDL 175, her HDL 43, her cholesterol 195, triglyceride 77, and TSH is 0.85. IMPRESSION AND PLAN: 1. Hypotension. Etiology unclear. It could be multiple. Could be cardiac. Could be sepsis. Could be medication related. We will give the patient fluid, responded well. So we will continue IV fluids. She is dehydrate due to small bowel obstructions. We are also going to monitor her blood pressure and we will get Cardiology consult and Nephrology consult for blood pressure management. 2. Small bowel obstruction. Stressed to see surgeon. There is no active bowel obstructions now and we will hold any surgery. He recommended bariatric surgery to decrease her weight, which is her major problem. Her BMI is 53.4. 3. Colorectal cancer with colostomy, stable. 4. Non-ST elevation myocardial infarctions. There is positive troponin. Continue beta-blockers and we will monitor her conditions with Cardiology. 5. Diabetes is controlled. Continue insulin coverage. 6. History of pulmonary embolism, deep vein thrombosis, hypercoagulable state. He has underlying malignancy. 7. Obstructive sleep apnea, chronic obstructive pulmonary disease, morbid obesity. Continue BiPAP as much as tolerated and we will follow up clinically. Continue current management, Patient has multiple comorbid illnesses. Her prognosis is guarded. We will continue current therapy for now. Elroy Florian MD
[2018-04-11] MEDS: Insulin Reg-LOW-Coverage SC SCH ×4 (12:19→22:03)
--- NOTE | 2018-04-11 12:51 | CP.PCM.PCO ---
Physician Communication Note - Physician Communication Note Physician Communication Note: Patient adamently refused NG tube placement
[2018-04-11] MEDS ORDERED: Labetalol 5 mg/ml Inj 20ML IV ONE (13:57)
[2018-04-11] MEDS ORDERED: Levalbuterol 1.25 MG/3 ML Inhal Soln UD IH PRN (14:03)
--- NOTE | 2018-04-11 14:50 | CP.PCM.PN ---
Subjective - Date & Time of Evaluation Date of Evaluation: 04/11/18 Time of Evaluation: 14:48 - Subjective Subjective: Hematology/Oncology Progress Note Patient seen and assessed at bedside. Patient was noted to have an DELI CUTTER SLICER called last evening after she was found to be tachycardic and with hypotension. She continues to endorse abdominal pain but does report that it has mildly improved. She denies any other complaints at this time including fevers, chills, headache, chest pain, SOB, cough,D/C, changes in urine output, skin changes or any numbness/tingling of any extremity. Objective - Vital Signs/Intake and Output Vital Signs (last 24 hours): Temp Pulse Resp BP Pulse Ox 98.9 F 126 H 20 200/86 H 97 04/11/18 12:00 04/11/18 12:22 04/11/18 12:00 04/11/18 12:22 04/11/18 05:51 Intake and Output: 04/11/18 04/11/18 06:59 18:59 Intake Total 800 Balance 800 - Medications Medications: Current Medications Amlodipine Besylate (Norvasc) 10 mg PO DAILY [facility] Last Admin: 04/10/18 11:23 Dose: Not Given Arformoterol Tartrate (Brovana) 15 mcg IH [id number] [facility] Last Admin: 04/11/18 08:00 Dose: 15 mcg Budesonide (Pulmicort Respules) 0.5 mg IH [id number] [facility] Last Admin: 04/11/18 08:00 Dose: 0.5 mg Clonidine HCl (Catapres Tts1 0.1 Mg/24 Hr) 1 patch TD Q7D@1000 [facility] Last Admin: 04/11/18 12:04 Dose: 1 patch Docusate Sodium (Colace) 100 mg PO TID [facility] Last Admin: 04/11/18 14:30 Dose: Not Given Enoxaparin Sodium (Lovenox) 40 mg SC DAILY [facility]; Protocol Last Admin: 04/11/18 12:06 Dose: 40 mg Hydralazine HCl (Apresoline) 10 mg IVP Q6 PRN PRN Reason: Systolic Blood Pressure Last Admin: 04/11/18 12:09 Dose: 10 mg Hydralazine HCl (Apresoline) 50 mg PO TID [facility] Last Admin: 04/10/18 13:36 Dose: Not Given Hydralazine HCl (Apresoline) 50 mg PO BID [facility] Last Admin: 04/11/18 12:47 Dose: Not Given Hydromorphone HCl (Dilaudid) 1 mg IVP Q4H PRN PRN Reason: Pain, moderate (4-7) Last Admin: 04/11/18 13:13 Dose: 1 mg Metronidazole (Flagyl) 500 mg in 100 mls @ 100 mls/hr IVPB Q8 [facility]; Protocol Last Admin: 04/11/18 14:32 Dose: 100 mls/hr Ceftriaxone Sodium (Rocephin 1 Gram Ivpb) 1 gm in 100 mls @ 100 mls/hr IVPB DAILY [facility]; Protocol Last Admin: 04/11/18 12:07 Dose: 100 mls/hr Sodium Chloride (Sodium Chloride 0.9%) 1,000 mls @ 150 mls/hr IV .Q6H40M [facility] Last Admin: 04/11/18 12:48 Dose: 150 mls/hr Insulin Human Regular (Humulin R Low) 0 units SC ACHS [facility]; Protocol Last Admin: 04/11/18 12:21 Dose: Not Given Levalbuterol HCl (Xopenex) 1.25 mg IH [id number] PRN PRN Reason: Shortness of Breath Methylprednisolone (Solu-Medrol) 30 mg IVP Q12 [facility] Last Admin: 04/11/18 12:06 Dose: 30 mg Metoprolol Succinate (Toprol Xl) 100 mg PO BRK JR Ondansetron HCl (Zofran Inj) 4 mg IVP Q6H PRN PRN Reason: Nausea/Vomiting Last Admin: 04/11/18 12:10 Dose: 4 mg Pantoprazole Sodium (Protonix Inj) 40 mg IVP DAILY [facility] Last Admin: 04/11/18 12:05 Dose: 40 mg - Labs Labs: 04/11/18 07:00 04/11/18 07:00 PT 12.4 SECONDS (9.4-12.5) 04/08/18 22:30 INR 1.09 04/08/18 22:30 APTT 29.8 Seconds (25.1-36.5) 04/08/18 22:30 - Additional Findings Additional findings: - Constitutional Appears: Non-toxic, No Acute Distress - Head Exam Head Exam: ATRAUMATIC, NORMOCEPHALIC - Eye Exam Eye Exam: EOMI, Normal appearance - ENT Exam ENT Exam: Mucous Membranes Moist - Neck Exam Neck exam: Positive for: Full Rom, Normal Inspection. Negative for: Lymphadenopathy, Meningismus, Tenderness, Thyromegaly - Respiratory Exam Respiratory Exam: Clear to Auscultation Bilateral, NORMAL BREATHING PATTERN. absent: Accessory Muscle Use, Decreased Breath Sounds, Rales, Rhonchi, Wheezes, Respiratory Distress - Cardiovascular Exam Cardiovascular Exam: REGULAR RHYTHM, RRR, +S1, +S2. absent: Bradycardia, Tachycardia - GI/Abdominal Exam GI & Abdominal Exam: Distended, Hernia, Normal Bowel Sounds Additional comments: Loop colostomy with brown liquid stool; Stoma pink and patent - Extremities Exam Extremities exam: Negative for: calf tenderness - Neurological Exam Neurological exam: Alert, Oriented x3 - Psychiatric Exam Psychiatric exam: Normal Affect, Normal Mood - Skin Skin Exam: Dry, Intact, Warm Assessment and Plan - Assessment and Plan (Free Text) Assessment: 62 year old female with a past medical history significant for Rectal Adenocarcinoma s/p AIR TRANSPORTATION PROVIDER and loop colostomy, CAD s/p GLORIA, CHF, DM2, HTN, CKD, and DVT/PE on Eliquis who presents from [place] after being sent by PMD for abdominal pain and anemia. Hematology/Oncology was consulted for her history of rectal adenocarcinoma and anemia. Plan: -H/H (04/11): 8.9/29.9 (Baseline: 9.5-10.0) -Iron Studies reviewed -Vitamin B12/Folate: within normal limits -Lead: Pending -Likely secondary to LANEY and CKD -S/P one dose of IV Venofer and SC Anaresp -Continue to monitor with daily CBC's -Further recommendations as per Dr. Faye Patient seen and case discussed with attending, Dr. Faye. Jeff Perez PGY2
--- NOTE | 2018-04-11 15:16 | CP.PCM.PN ---
Subjective - Date & Time of Evaluation Date of Evaluation: 04/11/18 Time of Evaluation: 15:12 - Subjective Subjective: Nephrology Consultation Note: Assessment: critical SBO Acute Kidney Injury (N17.9) likely pre-renal state HTN urgency, hyperkalemia left adrenal adenoma, Rt renal hyperdense cyst chronic hypercapnic respi failure Diabetic chronic Kidney Disease (E11.22) Hypertensive Chronic Kidney Disease (I12.9) Chronic Kidney Disease (N18.3) Stage 3 with 2.4 gm proteinuria (R80.9) likely due to DM/HTN/Obesity Anemia Vit D def morbid obesity, CAD s/p stent, COPD/SUMMER, rectal ca s/p colostomy Plan No acute need for renal replacement therapy at this time. . Hypertension control with meds as ordered. Maintain hemodynamics stable. Avoid hypotension. Patient not on ACEI/ARB due to recent SHELBI. rpt NPO: added labetalol. also on hydralazine and clonidine Monitor Input/Output, daily weights and renal function with basic metabolic panel continue with IVF as NS @ 75 ml/hr pulmonary and surgery following defer management of anemia to heme/onc. due to hx of malignancy, will defer use of ESAs. PRBC as needed Adrenal adenoma work up with plasma renin/aldosterone, plasma metanephrine NEGATIVE. outpt 1 mg dexa suppression test repeat renal sono in 6 months to assess her Rt renal cyst Dose meds/antibiotics for reduced GFR. Avoid fleets enema/magnesium based laxatives. Avoid nephrotoxins/NSAIDs/ iodinated contrast (unless needed emergently) Glycemic control Further work up/management as per primary team Thanks for allowing me to participate in care of your patient. Will follow patient with you. Please call if any Qs. had d/w team Dr Dae Dawn Office: [phone] Chief Complaint; abdomen pain Reason for consult: Acute Kidney Injury, CKD 3 HPI: Pt is a 62 F with hx of diabetes Mellitus (15 years), hypertension (years), CKD 3 with baseline cr 1.2-1.3 with AKIs, morbid obesity, CAD s/p stent, COPD/SUMMER on CPAP, rectal ca s/p colostomy presented with complaints of abdomen pain with nausea/vomiting. renal consult for CKD and SHELBI management. pt has no urine complaints. found to have partial SBO Denies OTC/herbal meds or NSAIDs No recent iodinated contrast exposure. No obvious episodes of low BP. ROS: improved pain abdomen with nausea/vomiting. feels better now. no SOB. denies urine complaints. reports decreased oral intake. BP fluctuating Physical Examination: General Appearance: Comfortable, co-operative . morbidly obese. ill appearing Vitals reviewed and noted as below Head; Atraumatic, normocephalic ENT: normal oral mucosa/dry. no rash/ulcer EYES: Pupils are equal, round and reactive to light accommodation. Eye muscles and extraocular movement intact. Sclera is anicteric. Neck; supple no lymphadenopathy, no thyromegaly or bruit Lungs: Normal respiratory rate/effort. Breath sounds bilateral equal, diminished at bases Heart: normal rate. s1s2 normal. No rub or gallop. Extremities: 2+ edema. No varicose veins Neurological: Patient is alert awake but oriented to person, place and time. No focal deficit. Strength bilateral appropriate and equal Skin: Warm and dry. Normal turgor. No rash. Palpitation: Normal elasticity for age Abdomen: Abdomen is soft. Bowel sounds +. There is no abdominal tenderness, no g uarding/rigidity no organomegaly. has colostomy and ventral hernia Psych: normal insight and normal affect/mood MSK: no joint tenderness or swelling. Digits and nails normal, no deformity : kidney or bladder not palpable Labs/imaging reviewed. Past medical history, past surgical history, family history, social history, al lergy reviewed and noted as below Family hx: no hx of CKD. Rest non-contributory PET CT 04/2017: neg CT abdomen: left adrenal adenoma 1.9 cm Rt kidney 2.6 cm hyperdense cyst UA 100 protein, neg for blood renin and roma low, metanehrine WNL PTH 133 Vit D 27 ANCA neg, K/L ratio WNL Objective - Vital Signs/Intake and Output Vital Signs (last 24 hours): Temp Pulse Resp BP Pulse Ox 98.9 F 126 H 20 200/86 H 97 04/11/18 12:00 04/11/18 12:22 04/11/18 12:00 04/11/18 12:22 04/11/18 05:51 Intake and Output: 04/11/18 04/11/18 06:59 18:59 Intake Total 800 Balance 800 - Medications Medications: Current Medications Amlodipine Besylate (Norvasc) 10 mg PO DAILY [facility] Last Admin: 04/10/18 11:23 Dose: Not Given Arformoterol Tartrate (Brovana) 15 mcg IH [id number] [facility] Last Admin: 04/11/18 08:00 Dose: 15 mcg Budesonide (Pulmicort Respules) 0.5 mg IH [id number] [facility] Last Admin: 04/11/18 08:00 Dose: 0.5 mg Clonidine HCl (Catapres Tts1 0.1 Mg/24 Hr) 1 patch TD Q7D@1000 [facility] Last Admin: 04/11/18 12:04 Dose: 1 patch Docusate Sodium (Colace) 100 mg PO TID [facility] Last Admin: 04/11/18 14:30 Dose: Not Given Enoxaparin Sodium (Lovenox) 40 mg SC DAILY [facility]; Protocol Last Admin: 04/11/18 12:06 Dose: 40 mg Hydralazine HCl (Apresoline) 10 mg IVP Q6 PRN PRN Reason: Systolic Blood Pressure Last Admin: 04/11/18 12:09 Dose: 10 mg Hydralazine HCl (Apresoline) 50 mg PO TID [facility] Last Admin: 04/10/18 13:36 Dose: Not Given Hydralazine HCl (Apresoline) 50 mg PO BID [facility] Last Admin: 04/11/18 12:47 Dose: Not Given Hydromorphone HCl (Dilaudid) 1 mg IVP Q4H PRN PRN Reason: Pain, moderate (4-7) Last Admin: 04/11/18 13:13 Dose: 1 mg Metronidazole (Flagyl) 500 mg in 100 mls @ 100 mls/hr IVPB Q8 [facility]; Protocol Last Admin: 04/11/18 14:32 Dose: 100 mls/hr Ceftriaxone Sodium (Rocephin 1 Gram Ivpb) 1 gm in 100 mls @ 100 mls/hr IVPB DAILY [facility]; Protocol Last Admin: 04/11/18 12:07 Dose: 100 mls/hr Sodium Chloride (Sodium Chloride 0.9%) 1,000 mls @ 150 mls/hr IV .Q6H40M [facility] Last Admin: 04/11/18 12:48 Dose: 150 mls/hr Insulin Human Regular (Humulin R Low) 0 units SC ACHS [facility]; Protocol Last Admin: 04/11/18 12:21 Dose: Not Given Levalbuterol HCl (Xopenex) 1.25 mg IH [id number] PRN PRN Reason: Shortness of Breath Methylprednisolone (Solu-Medrol) 30 mg IVP Q12 [facility] Last Admin: 04/11/18 12:06 Dose: 30 mg Metoprolol Succinate (Toprol Xl) 100 mg PO BRK JR Ondansetron HCl (Zofran Inj) 4 mg IVP Q6H PRN PRN Reason: Nausea/Vomiting Last Admin: 04/11/18 12:10 Dose: 4 mg Pantoprazole Sodium (Protonix Inj) 40 mg IVP DAILY [facility] Last Admin: 04/11/18 12:05 Dose: 40 mg - Labs Labs: 04/11/18 07:00 04/11/18 07:00 PT 12.4 SECONDS (9.4-12.5) 04/08/18 22:30 INR 1.09 04/08/18 22:30 APTT 29.8 Seconds (25.1-36.5) 04/08/18 22:30
--- NOTE | 2018-04-11 18:16 | CP.PCM.CON ---
History of Present Illness - History of Present Illness History of Present Illness: Critical Care Consult: 62F with a past medical history significant for rectal Adenocarcinoma s/p PRACTICE ASSISTANT and loop colostomy, CAD s/p GLORIA, SUMMER, CHF, DM2, HTN, CKD, and DVT/PE on Eliquis admitted with abd pain. CT abd suggests possible partial small bowel obstruction. ICU Consulted for HTN. Currently she c/o abd pain. No back pain, no chest pain no SOB. No visual changes, no DIXON. PMH: As above PSH: Appendectomy, cardiac stents, loop colostomy (2013) Family History: HTN Social History: Denies any tobacco, alcohol or illicit drug use Allergies: NKDA Home Medications: As per MAR Past Patient History - Infectious Disease Hx of Infectious Diseases: None - Tetanus Immunizations Tetanus Immunization: Unknown - Past Social History Smoking Status: Never Smoked - CARDIAC Hx Congestive Heart Failure: Yes Hx Hypertension: Yes - PULMONARY Hx Respiratory Disorders: Yes Hx Bronchitis: Yes Hx Chronic Obstructive Pulmonary Disease (COPD): Yes Hx Pulmonary Embolism: Yes - NEUROLOGICAL Hx Neurological Disorder: Yes Hx Dizziness: Yes - HEENT Hx Macular Degeneration: No - RENAL Hx Renal Failure: Yes - ENDOCRINE/METABOLIC Hx Diabetes Mellitus Type 2: Yes - HEMATOLOGICAL/ONCOLOGICAL Hx Blood Disorders: No - INTEGUMENTARY Hx Dermatological Problems: No - MUSCULOSKELETAL/RHEUMATOLOGICAL Hx Falls: No - GASTROINTESTINAL Hx Gastrointestinal Disorders: Yes (RECTAL CA WITH COLOSTOMY,GI BLEED) - GENITOURINARY/GYNECOLOGICAL Hx Genitourinary Disorders: Yes (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,UTI) - PSYCHIATRIC Hx Psychophysiologic Disorder: Yes Hx Anxiety: Yes Hx Substance Use: No - SURGICAL HISTORY Hx Appendectomy: Yes Hx Coronary Stent: Yes Other/Comment: colostomy - ANESTHESIA Hx Anesthesia: Yes Hx Anesthesia Reactions: No Hx Malignant Hyperthermia: No Meds Allergies/Adverse Reactions: Allergies Allergy/AdvReac Type Severity Reaction Status Date / Time No Known Allergies Allergy Verified 04/08/18 21:16 - Medications Medications: Current Medications Arformoterol Tartrate (Brovana) 15 mcg IH [id number] [facility] Last Admin: 04/11/18 08:00 Dose: 15 mcg Budesonide (Pulmicort Respules) 0.5 mg IH [id number] [facility] Last Admin: 04/11/18 08:00 Dose: 0.5 mg Clonidine HCl (Catapres-Tts3 0.3 Mg/24 Hr) 1 patch TD Q7D@1000 [facility] Docusate Sodium (Colace) 100 mg PO TID [facility] Last Admin: 04/11/18 14:30 Dose: Not Given Enoxaparin Sodium (Lovenox) 40 mg SC DAILY [facility]; Protocol Last Admin: 04/11/18 12:06 Dose: 40 mg Hydralazine HCl (Apresoline) 50 mg PO BID [facility] Last Admin: 04/11/18 12:47 Dose: Not Given Hydralazine HCl (Apresoline) 10 mg IVP Q4 PRN PRN Reason: Systolic Blood Pressure Hydromorphone HCl (Dilaudid) 1 mg IVP Q4H PRN PRN Reason: Pain, moderate (4-7) Last Admin: 04/11/18 13:13 Dose: 1 mg Metronidazole (Flagyl) 500 mg in 100 mls @ 100 mls/hr IVPB Q8 [facility]; Protocol Last Admin: 04/11/18 14:32 Dose: 100 mls/hr Ceftriaxone Sodium (Rocephin 1 Gram Ivpb) 1 gm in 100 mls @ 100 mls/hr IVPB DAILY [facility]; Protocol Last Admin: 04/11/18 12:07 Dose: 100 mls/hr Sodium Chloride (Sodium Chloride 0.9%) 1,000 mls @ 75 mls/hr IV .[id number] [facility] Insulin Human Regular (Humulin R Low) 0 units SC ACHS [facility]; Protocol Last Admin: 04/11/18 12:21 Dose: Not Given Labetalol HCl (Trandate) 10 mg IV Q6 [facility] Levalbuterol HCl (Xopenex) 1.25 mg IH [id number] PRN PRN Reason: Shortness of Breath Methylprednisolone (Solu-Medrol) 30 mg IVP Q12 [facility] Last Admin: 04/11/18 12:06 Dose: 30 mg Ondansetron HCl (Zofran Inj) 4 mg IVP Q6H PRN PRN Reason: Nausea/Vomiting Last Admin: 04/11/18 12:10 Dose: 4 mg Pantoprazole Sodium (Protonix Inj) 40 mg IVP DAILY [facility] Last Admin: 04/11/18 12:05 Dose: 40 mg Physical Exam - Constitutional Appears: In Acute Distress - Head Exam Head Exam: ATRAUMATIC, NORMAL INSPECTION, NORMOCEPHALIC - Eye Exam Eye Exam: EOMI, Normal appearance, PERRL Pupil Exam: NORMAL ACCOMODATION, PERRL - Respiratory Exam Respiratory Exam: Clear to Auscultation Bilateral. absent: Accessory Muscle Use, Chest Wall Tenderness - Cardiovascular Exam Cardiovascular Exam: Tachycardia - GI/Abdominal Exam GI & Abdominal Exam: Distended, Hypoactive Bowel Sounds, Tenderness Results - Vital Signs Recent Vital Signs: Last Vital Signs Temp 98.9 F 04/11/18 12:00 Pulse 126 H 04/11/18 12:22 Resp 20 04/11/18 12:00 BP 161/69 H 04/11/18 13:30 Pulse Ox 97 04/11/18 05:51 - Labs Result Diagrams: 04/11/18 07:00 04/11/18 07:00 Labs: Laboratory Results - last 24 hr 04/10/18 04/11/18 04/11/18 21:07 06:50 07:00 WBC RBC Hgb Hct MCV MCH MCHC RDW Plt Count MPV Gran % Lymph % (Auto) [place] % (Auto) Eos % (Auto) Baso % (Auto) Gran # Lymph # (Auto) [place] # (Auto) Eos # (Auto) Baso # (Auto) pCO2 59 H pO2 83.0 HCO3 27.1 ABG pH 7.27 L ABG Total CO2 28.9 H ABG O2 Saturation 98.2 H ABG O2 Content 12.7 L ABG Base Excess -0.4 ABG Hemoglobin 9.4 L ABG Carboxyhemoglobin 1.8 H POC ABG HHb (Measured) 1.8 ABG Methemoglobin 0.9 ABG O2 Capacity 12.9 L Hgb O2 Saturation 95.5 FiO2 40.0 Sodium Potassium Chloride Carbon Dioxide Anion Gap BUN Creatinine Est GFR ( Amer) Est GFR (Non-Af Amer) POC Glucose (mg/dL) 211 H Random Glucose Hemoglobin A1c Calcium Phosphorus 4.0 Magnesium 1.7 Total Bilirubin AST ALT Alkaline Phosphatase Lactate Dehydrogenase 515 Total Creatine Kinase < 20 L Troponin I 0.31 H* D Total Protein Albumin Globulin Albumin/Globulin Ratio Triglycerides 77 Cholesterol 195 LDL Cholesterol Direct 135 H HDL Cholesterol 43 TSH 3rd Generation 04/11/18 04/11/18 04/11/18 07:00 07:00 07:00 WBC 10.6 RBC 3.39 L Hgb 8.9 L Hct 29.9 L MCV 88.2 MCH 26.3 MCHC 29.8 L RDW 18.8 H Plt Count 286 MPV 11.0 Gran % 80.4 H Lymph % (Auto) 13.7 L [place] % (Auto) 5.5 Eos % (Auto) 0.2 L Baso % (Auto) 0.2 Gran # 8.56 H Lymph # (Auto) 1.5 [place] # (Auto) 0.6 Eos # (Auto) 0.0 Baso # (Auto) 0.02 pCO2 pO2 HCO3 ABG pH ABG Total CO2 ABG O2 Saturation ABG O2 Content ABG Base Excess ABG Hemoglobin ABG Carboxyhemoglobin POC ABG HHb (Measured) ABG Methemoglobin ABG O2 Capacity Hgb O2 Saturation FiO2 Sodium Potassium Chloride Carbon Dioxide Anion Gap BUN Creatinine Est GFR ( Amer) Est GFR (Non-Af Amer) POC Glucose (mg/dL) Random Glucose Hemoglobin A1c 7.0 H Calcium Phosphorus Magnesium Total Bilirubin AST ALT Alkaline Phosphatase Lactate Dehydrogenase Total Creatine Kinase Troponin I Total Protein Albumin Globulin Albumin/Globulin Ratio Triglycerides Cholesterol LDL Cholesterol Direct HDL Cholesterol TSH 3rd Generation 0.85 04/11/18 04/11/18 04/11/18 07:00 07:38 11:20 WBC RBC Hgb Hct MCV MCH MCHC RDW Plt Count MPV Gran % Lymph % (Auto) [place] % (Auto) Eos % (Auto) Baso % (Auto) Gran # Lymph # (Auto) [place] # (Auto) Eos # (Auto) Baso # (Auto) pCO2 pO2 HCO3 ABG pH ABG Total CO2 ABG O2 Saturation ABG O2 Content ABG Base Excess ABG Hemoglobin ABG Carboxyhemoglobin POC ABG HHb (Measured) ABG Methemoglobin ABG O2 Capacity Hgb O2 Saturation FiO2 Sodium 145 Potassium 5.2 H Chloride 113 H Carbon Dioxide 28 Anion Gap 9 L BUN 67 H Creatinine 2.1 H Est GFR ( Amer) 29 Est GFR (Non-Af Amer) 24 POC Glucose (mg/dL) 182 H 208 H Random Glucose 194 H Hemoglobin A1c Calcium 9.0 Phosphorus Magnesium Total Bilirubin 0.4 AST 36 ALT 23 Alkaline Phosphatase 158 H Lactate Dehydrogenase Total Creatine Kinase Troponin I Total Protein 6.9 Albumin 3.0 Globulin 3.8 Albumin/Globulin Ratio 0.8 L Triglycerides Cholesterol LDL Cholesterol Direct HDL Cholesterol TSH 3rd Generation 04/11/18 17:11 WBC RBC Hgb Hct MCV MCH MCHC RDW Plt Count MPV Gran % Lymph % (Auto) [place] % (Auto) Eos % (Auto) Baso % (Auto) Gran # Lymph # (Auto) [place] # (Auto) Eos # (Auto) Baso # (Auto) pCO2 pO2 HCO3 ABG pH ABG Total CO2 ABG O2 Saturation ABG O2 Content ABG Base Excess ABG Hemoglobin ABG Carboxyhemoglobin POC ABG HHb (Measured) ABG Methemoglobin ABG O2 Capacity Hgb O2 Saturation FiO2 Sodium Potassium Chloride Carbon Dioxide Anion Gap BUN Creatinine Est GFR ( Amer) Est GFR (Non-Af Amer) POC Glucose (mg/dL) 213 H Random Glucose Hemoglobin A1c Calcium Phosphorus Magnesium Total Bilirubin AST ALT Alkaline Phosphatase Lactate Dehydrogenase Total Creatine Kinase Troponin I Total Protein Albumin Globulin Albumin/Globulin Ratio Triglycerides Cholesterol LDL Cholesterol Direct HDL Cholesterol TSH 3rd Generation Assessment & Plan - Assessment and Plan (Free Text) Assessment: 62F with a past medical history significant for rectal Adenocarcinoma s/p PRACTICE ASSISTANT a nd loop colostomy, CAD s/p GLORIA, SUMMER, CHF, DM2, HTN, CKD, and DVT/PE on Eliquis being tx of abd pain and partial small bowel obstruction. As a result she is NPO which has create a challenge to her HTN management. During my exam, her BP responded to IV anti-HTN med and was 161/69. I think we can optimize her non-oral BP meds to limit the fluctuations in pressure. Recommend increasing her clonidine to patch as she is on the lowest dose. Cont to adjust [id number] PRN anti-HTN. Prefer IV BB given her tachycardia. Hydralazine is known to cause reflex tachycardia which may make her HR worse. P ain is also likely contributing to her tachycardia - optimize pain meds. No indication for ICU level care at this time however if her blood pressures cont to fluctuate dramatically despite optimizing non-po meds, please re-call. Lawson Sweet MD Abstract Searcher
[2018-04-11] MEDS: Labetalol 5 mg/ml Inj 20ML IV SCH (18:19)
--- NOTE | 2018-04-11 22:41 | PN ---
DATE: 04/11/2018 REASON FOR CONSULTATION AND FOLLOWUP: Tachycardia, lethargic, small bowel obstruction, history of coronary artery disease, borderline positive troponin, impaired acute renal failure, uncontrolled hypertension. Patient feels better. Yesterday, the patient's dropped the blood pressure to 94, so all the antihypertensive medication was held. Today, blood pressure 200/86. Hemoglobin 8.9. BUN and creatinine 2.1. Creatinine clearance . Troponin 0.32, probably not significant. Could be underlying coronary artery disease, could be demand supply ischemia. In view of above, not a candidate to go to labor conciliator. Patient has small bowel obstruction as well as acute kidney injury. RECOMMENDATIONS: Aggressive medical treatment. We will resume antihypertensive medication and avoid nephrotoxic medication, ESTEVAN and ARB. Use clonidine, hydralazine, and we will follow with you. Discussed with Dr. Dae Dawn and discussed management. We will start antihypertensive medication, hydralazine as well as clonidine patch and change clonidine patch to 0.3 and put labetalol IV as ordered by Dr. Dawn. We will follow with you. We will put clonidine patch #3, and we will hold for systolic blood pressure less than 120. We will cut down to 50 mL an hour. This note is an addition to dictated by nurse practitioner, Tiffanie Osborne. Thank you Dr. Florian and Dr. Dawn in providing us an opportunity in taking care of the patient, Pedro Guevara. Pamela Guerrero MD
--- NOTE | 2018-04-11 23:42 | PN ---
DATE: 04/11/2018 REFERRING PHYSICIAN: Dr. Florian SUBJECTIVE: She is lying in the bed, overnight events noted. This morning, had a severe abdominal pain with tachypnea, tachycardia and uncontrolled blood pressure. The patient on pain medication, seen by surgical team. NG tube was suggested but patient refused understanding risk, benefit ratio. She is n.p.o. This evening, she was little better, sleepy, arousable, on nasal cannula. Still has a mid abdominal pain, blood pressure was still uncontrolled, hydralazine IV been added and also clonidine patch 0.3 mg is being given. No chest pain. Denying any significant shortness of breath and no leg swelling. OBJECTIVE: GENERAL: Mild moderate distress secondary to pain. VITAL SIGNS: Temperature is 98, heart rate is 120, respiratory rate is 22, blood pressure 192/93, pulse ox 97% nasal cannula. HEENT: Moist mucous membrane. Crowded airway. Mallampati score is 4. NECK: Supple. No JVD. LUNGS: Fair airflow with few rhonchi. HEART: S1 and S2. ABDOMEN: Colostomy bag working okay. Midabdominal has a tenderness. EXTREMITIES: Trace edema. NEUROLOGIC: Sleepy, arousable. Follows simple command. MEDICATIONS: She is on hydralazine 50 mg twice a day, also getting hydralazine 10 mg every 4 hours p.r.n., Brovana 15 mcg inhaled twice a day, clonidine patch 0.3 mg, Colace 100 mg three times daily, Dilaudid 1 mg every 4 hours p.r.n., Flagyl 500 mg every 8 hours, insulin coverage, Lovenox 40 mg daily, Protonix 40 mg daily, Pulmicort inhaled twice a day, Rocephin 1 g IV daily, IV fluid normal saline 75 mL per hour, Solu-Medrol 30 mg every 12 hours, labetalol 10 mg every 6 hours, Xopenex inhaler every 6 hours. p.r.n., Zofran p.r.n. basis. LABORATORY DATA: Shows hemoglobin 8.9, hematocrit 29.9, WBC 10.6, platelet count is 286,000. ABG showed pH 7.27, pCO2 was 59, O2 is 83. Sodium 144, potassium 4.2, chloride 113, bicarbonate 28, BUN 67, creatinine 2.1, glucose 194, calcium is 9.0, AST 36, ALT 23, alk phos is 158. Albumin is 3.0. TSH 0.85. EKG done earlier today shows sinus tachycardia, nonspecific ST-T abnormalities. IMPRESSION AND PLAN: [id number] respiratory failure with CO2 retention and hypoxemia. Has a metabolic respiratory acidosis, renal failure, may have hypovolemia secondary to n.p.o. and possible intestinal obstruction, morbid obesity, history of deep venous thrombosis and pulmonary embolism in the past, coronary artery disease, history of colorectal carcinoma requiring surgery, has a colostomy. Case discussed with Dr. Florian this morning. Suggested to transfer to Intensive Care Unit. The patient was seen by eyeglass lens generator in the evening time and patient feels little better. Tachycardia, blood pressure is improved on IV beta-blockers. The patient refusing NG tube placement. We will continue to encourage BiPAP especially while on sedation. Continue antibiotics. Follow up ABG, chest x-ray, CBC, CMP in the morning. Thank you and we will follow with you. Pamela Ayala MD
[2018-04-12] MEDS: Labetalol 5 mg/ml Inj 20ML IV SCH ×3 (04:04→14:17)
[2018-04-12] MEDS: Sodium Chloride 0.9% 1,000 ML IV SCH (04:07)
[2018-04-12] MEDS: HYDROmorphone 1 mg/ml ISec IVP PRN ×5 (04:09→21:04)
[2018-04-12] MEDS: metroNIDAZOLE IV 500 mg/100 ml 500 MG/100 ML BAG IVPB SCH ×2 (05:34→17:35)
[2018-04-12 06:38] LABS: ARTERIAL BLOOD GAS HCO3 19.3 mmol/L (21-28); ARTERIAL BLOOD GAS HEMOGLOBIN 7.7 g/dL (11.7-17.4); ARTERIAL BLOOD GAS O2 CAPACITY 10.7 mL/dl (16-24); ARTERIAL BLOOD GAS O2 CONTENT 10.6 ML/dl (15-23); ARTERIAL BLOOD GAS O2 SAT 99.4 % (95-98); ARTERIAL BLOOD GAS PCO2 35 mm/Hg (35-45); ARTERIAL BLOOD GAS PH 7.35 (7.35-7.45); ARTERIAL BLOOD GAS TCO2 20.4 mmol.L (22-28)
[2018-04-12 07:15] LABS: BASO # 0.02 K/mm3 (0.0-2.0); BASO % 0.2 % (0.0-3.0); GRAN # 7.31 (1.4-6.5); HEMOGLOBIN 8.7 g/dL (12.0-16.0); LYMPH # 1.2 (1.2-3.4); LYMPH % 13.6 % (22.0-35.0); MEAN CELL VOLUME 88.1 fl (80.0-105.0); MEAN CORPUSCULAR HEMOGLOBIN 25.8 pg (25.0-35.0); MEAN CORPUSCULAR HGB CONC 29.3 g/dl (31.0-37.0); MEAN PLATELET VOLUME 10.9 fl (7.0-11.0); MONO # 0.4 (0.1-0.6); MONO % 4.2 % (1.0-6.0); RBC 3.37 10^6/uL (3.5-6.1); RED CELL DISTRIBUTION WIDTH 19.2 % (11.5-14.5); WHITE BLOOD COUNT 8.9 10^3/uL (4.5-11.0)
--- NOTE | 2018-04-12 07:29 | CP.PCM.PN ---
Subjective - Date & Time of Evaluation Date of Evaluation: 04/12/18 Time of Evaluation: 06:40 - Subjective Subjective: Awake, alert, no distress, BIPAP/CPAP in use Reason for consultation and follow up: Cardiac evaluation of tachycardia, history of coronary artery disease, admitted for possible bowel obstruction Seen and examined by me and Dr. Guerrero Objective - Vital Signs/Intake and Output Vital Signs (last 24 hours): Temp Pulse Resp BP Pulse Ox 98.8 F 116 H 18 211/97 H 94 L 04/12/18 06:00 04/12/18 07:06 04/12/18 06:00 04/12/18 07:06 04/12/18 06:00 Intake and Output: 04/12/18 04/12/18 06:59 18:59 Intake Total 1850 Output Total 0 Balance 1850 - Medications Medications: Current Medications Arformoterol Tartrate (Brovana) 15 mcg IH [id number] [facility] Last Admin: 04/11/18 20:02 Dose: 15 mcg Budesonide (Pulmicort Respules) 0.5 mg IH [id number] [facility] Last Admin: 04/11/18 20:02 Dose: 0.5 mg Clonidine HCl (Catapres-Tts3 0.3 Mg/24 Hr) 1 patch TD Q7D@1000 JR Last Admin: 04/11/18 18:17 Dose: 1 patch Docusate Sodium (Colace) 100 mg PO TID [facility] Last Admin: 04/11/18 18:18 Dose: Not Given Enoxaparin Sodium (Lovenox) 40 mg SC DAILY [facility]; Protocol Last Admin: 04/11/18 12:06 Dose: 40 mg Hydralazine HCl (Apresoline) 50 mg PO BID [facility] Last Admin: 04/11/18 18:15 Dose: Not Given Hydralazine HCl (Apresoline) 10 mg IVP Q4 PRN PRN Reason: Systolic Blood Pressure Last Admin: 04/12/18 07:06 Dose: 10 mg Hydromorphone HCl (Dilaudid) 1 mg IVP Q4H PRN PRN Reason: Pain, moderate (4-7) Last Admin: 04/12/18 04:09 Dose: 1 mg Metronidazole (Flagyl) 500 mg in 100 mls @ 100 mls/hr IVPB Q8 [facility]; Protocol Last Admin: 04/12/18 05:34 Dose: 100 mls/hr Ceftriaxone Sodium (Rocephin 1 Gram Ivpb) 1 gm in 100 mls @ 100 mls/hr IVPB DAILY [facility]; Protocol Last Admin: 04/11/18 12:07 Dose: 100 mls/hr Sodium Chloride (Sodium Chloride 0.9%) 1,000 mls @ 75 mls/hr IV .[id number] [facility] Last Admin: 04/12/18 04:07 Dose: 75 mls/hr Insulin Human Regular (Humulin R Low) 0 units SC ACHS [facility]; Protocol Last Admin: 04/11/18 22:03 Dose: Not Given Labetalol HCl (Trandate) 10 mg IV Q6 [facility] Last Admin: 04/12/18 04:04 Dose: 10 mg Levalbuterol HCl (Xopenex) 1.25 mg IH [id number] PRN PRN Reason: Shortness of Breath Methylprednisolone (Solu-Medrol) 30 mg IVP Q12 [facility] Last Admin: 04/11/18 22:00 Dose: 30 mg Ondansetron HCl (Zofran Inj) 4 mg IVP Q6H PRN PRN Reason: Nausea/Vomiting Last Admin: 04/11/18 12:10 Dose: 4 mg Pantoprazole Sodium (Protonix Inj) 40 mg IVP DAILY [facility] Last Admin: 04/11/18 12:05 Dose: 40 mg - Labs Labs: 04/12/18 06:50 04/11/18 07:00 PT 12.4 SECONDS (9.4-12.5) 04/08/18 22:30 INR 1.09 04/08/18 22:30 APTT 29.8 Seconds (25.1-36.5) 04/08/18 22:30 - Constitutional Appears: Non-toxic, No Acute Distress - Head Exam Head Exam: NORMAL INSPECTION, NORMOCEPHALIC - Eye Exam Eye Exam: Normal appearance - ENT Exam ENT Exam: Mucous Membranes Dry - Respiratory Exam Respiratory Exam: Decreased Breath Sounds, NORMAL BREATHING PATTERN - Cardiovascular Exam Cardiovascular Exam: Tachycardia, +S1, +S2 Additional comments: Telemetry 100's ST - GI/Abdominal Exam GI & Abdominal Exam: Soft, Normal Bowel Sounds Additional comments: colostomy - Extremities Exam Additional comments: 2+ edema - Neurological Exam Neurological Exam: Alert, Awake, Oriented x3 - Psychiatric Exam Psychiatric exam: Normal Affect, Normal Mood - Skin Skin Exam: Dry, Normal Color, Warm Assessment and Plan - Assessment and Plan (Free Text) Assessment: A 62 year old morbidly obese female who came in from [facility] to the ER due to diffuse abdominal pain and abnormal lab results. History of DVT/PE on Eliquis, COPD, CKD, anemia, colorectal cancer s/p resection with colostomy, CAD with stent placement,hypertension, and chronic back pain. 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 CPAP/BIPAP in use. Plan: No distress, denies shortness, CPAP/BIPAP in use Uncontrolled blood pressure Yesterday all antihypertensive medications held due to hypotension Will resume antihypertensive medications Hydralazine PRN Heart rate controlled On Clonidine patch,Apresoline 50 mg BID, Labetolol 10 mg IV every 6 hours, Solumedrol 30 mg every 12 hours Glucose control Continue IV antibiotics as ordered Continue current treatment Continue current medications Chart reviewed Will follow up Plan and treatment discussed with Dr. Guerrero
[2018-04-12 07:33] LABS: ALB/GLOB RATIO 0.8 (1.1-1.8); CALCIUM 9.2 mg/dL (8.4-10.5)
[2018-04-12] MEDS: Budesonide 0.5 mg/2 ml Inhal Susp UD IH SCH ×2 (08:07→20:24)
[2018-04-12] MEDS: Arformoterol 15 mcg/2 ml Inh Sol IH SCH ×2 (08:07→20:24)
[2018-04-12] MEDS ORDERED: Labetalol 5 mg/ml Inj 20ML IV ONE (08:17)
--- NOTE | 2018-04-12 08:50 | CP.PCM.PN ---
<Jeff Perez - Last Filed: 04/12/18 16:08> Subjective - Date & Time of Evaluation Date of Evaluation: 04/12/18 Time of Evaluation: 08:47 - Subjective Subjective: Hematology/Oncology Progress Note Patient seen and assessed at bedside. Patient was noted to have HTN overnight. ICU consult was placed for this but patient did not meet ICU criteria for transfer. She continues to endorse mild abdominal pain with some associated n ausea. She denies any other complaints at this time including fevers, chills, headache, chest pain, SOB, cough, D/C, changes in urine output, skin changes or any numbness/tingling of any extremity. Objective - Vital Signs/Intake and Output Vital Signs (last 24 hours): Temp Pulse Resp BP Pulse Ox 98.8 F 129 H 18 211/97 H 94 L 04/12/18 06:00 04/12/18 08:36 04/12/18 06:00 04/12/18 08:36 04/12/18 06:00 Intake and Output: 04/12/18 04/12/18 06:59 18:59 Intake Total 1850 Output Total 0 Balance 1850 - Medications Medications: Current Medications Arformoterol Tartrate (Brovana) 15 mcg IH [id number] [facility] Last Admin: 04/12/18 08:07 Dose: 15 mcg Budesonide (Pulmicort Respules) 0.5 mg IH [id number] [facility] Last Admin: 04/12/18 08:07 Dose: 0.5 mg Clonidine HCl (Catapres-Tts3 0.3 Mg/24 Hr) 1 patch TD Q7D@1000 [facility] Last Admin: 04/11/18 18:17 Dose: 1 patch Docusate Sodium (Colace) 100 mg PO TID [facility] Last Admin: 04/11/18 18:18 Dose: Not Given Enoxaparin Sodium (Lovenox) 40 mg SC DAILY [facility]; Protocol Last Admin: 04/11/18 12:06 Dose: 40 mg Hydralazine HCl (Apresoline) 50 mg PO BID [facility] Last Admin: 04/11/18 18:15 Dose: Not Given Hydralazine HCl (Apresoline) 10 mg IVP Q4 PRN PRN Reason: Systolic Blood Pressure Last Admin: 04/12/18 07:06 Dose: 10 mg Hydromorphone HCl (Dilaudid) 1 mg IVP Q4H PRN PRN Reason: Pain, moderate (4-7) Last Admin: 04/12/18 04:09 Dose: 1 mg Metronidazole (Flagyl) 500 mg in 100 mls @ 100 mls/hr IVPB Q8 [facility]; Protocol Last Admin: 04/12/18 05:34 Dose: 100 mls/hr Ceftriaxone Sodium (Rocephin 1 Gram Ivpb) 1 gm in 100 mls @ 100 mls/hr IVPB DAILY [facility]; Protocol Last Admin: 04/11/18 12:07 Dose: 100 mls/hr Sodium Chloride (Sodium Chloride 0.9%) 1,000 mls @ 75 mls/hr IV .[id number] [facility] Last Admin: 04/12/18 04:07 Dose: 75 mls/hr Insulin Human Regular (Humulin R Low) 0 units SC ACHS [facility]; Protocol Last Admin: 04/11/18 22:03 Dose: Not Given Labetalol HCl (Trandate) 10 mg IV Q6 [facility] Last Admin: 04/12/18 04:04 Dose: 10 mg Levalbuterol HCl (Xopenex) 1.25 mg IH [id number] PRN PRN Reason: Shortness of Breath Methylprednisolone (Solu-Medrol) 30 mg IVP Q12 [facility] Last Admin: 04/11/18 22:00 Dose: 30 mg Ondansetron HCl (Zofran Inj) 4 mg IVP Q6H PRN PRN Reason: Nausea/Vomiting Last Admin: 04/11/18 12:10 Dose: 4 mg Pantoprazole Sodium (Protonix Inj) 40 mg IVP DAILY [facility] Last Admin: 04/11/18 12:05 Dose: 40 mg - Labs Labs: 04/12/18 06:50 04/12/18 06:50 PT 12.4 SECONDS (9.4-12.5) 04/08/18 22:30 INR 1.09 04/08/18 22:30 APTT 29.8 Seconds (25.1-36.5) 04/08/18 22:30 - Additional Findings Additional findings: - Constitutional Appears: Non-toxic, No Acute Distress - Head Exam Head Exam: ATRAUMATIC, NORMOCEPHALIC - Eye Exam Eye Exam: EOMI, Normal appearance - ENT Exam ENT Exam: Mucous Membranes Moist - Neck Exam Neck exam: Positive for: Full Rom, Normal Inspection. Negative for: Lymphadenopathy, Meningismus, Tenderness, Thyromegaly - Respiratory Exam Respiratory Exam: Clear to Auscultation Bilateral, NORMAL BREATHING PATTERN. absent: Accessory Muscle Use, Decreased Breath Sounds, Rales, Rhonchi, Wheezes, Respiratory Distress - Cardiovascular Exam Cardiovascular Exam: REGULAR RHYTHM, RRR, +S1, +S2. 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 Hematology/Oncology was consulted for her history of rectal adenocarcinoma and anemia. Plan: -H/H (04/12): 8.7/29.7 (Baseline: 9.5-10.0) -Iron Studies reviewed -Vitamin B12/Folate: within normal limits -Lead: Negative -Anemia likely secondary to LANEY and CKD -S/P one dose of IV Venofer and SC Anaresp -Continue to monitor with daily CBC's -Continue management as per GI, cardio and primary teams -Further recommendations as per Dr. Faye Patient seen and case discussed with attending, Dr. Faye. Jeff Perez PGY2 <Maria Ines Faye P - Last Filed: 04/14/18 14:13> Objective - Vital Signs/Intake and Output Vital Signs (last 24 hours): Temp Pulse Resp BP Pulse Ox 98.1 F 76 13 163/60 H 99 04/14/18 03:51 04/14/18 05:20 04/14/18 05:20 04/14/18 05:01 04/14/18 05:20 Intake and Output: 04/14/18 04/14/18 06:59 18:59 Intake Total 2024 Output Total 600 Balance 1425 - Medications Medications: Current Medications Amlodipine Besylate (Norvasc) 10 mg PO DAILY [facility] Last Admin: 04/14/18 14:07 Dose: Not Given Arformoterol Tartrate (Brovana) 15 mcg IH [id number] [facility] Last Admin: 04/14/18 08:19 Dose: 15 mcg Budesonide (Pulmicort Respules) 0.5 mg IH [id number] [facility] Last Admin: 04/14/18 08:19 Dose: 0.5 mg Clonidine HCl (Catapres-Tts3 0.3 Mg/24 Hr) 1 patch TD Q7D@1000 [facility] Last Admin: 04/11/18 18:17 Dose: 1 patch Docusate Sodium (Colace) 100 mg PO TID [facility] Last Admin: 04/13/18 17:21 Dose: 100 mg Hydralazine HCl (Apresoline) 50 mg PO TID [facility] Last Admin: 04/13/18 17:20 Dose: 50 mg Hydromorphone HCl (Dilaudid) 0.5 mg IVP Q2H PRN PRN Reason: Pain, Mild (1-3) Last Admin: 04/14/18 07:32 Dose: 0.5 mg Hydromorphone HCl (Dilaudid) 1 mg IVP Q4H PRN PRN Reason: Pain, severe (8-10) Last Admin: 04/14/18 03:11 Dose: 1 mg Heparin Sodium/Sodium Chloride (Heparin 59781 Units/250ml 1/2 Normal Saline) 25,000 units in 250 mls @ 16.346 mls/hr IV .[id number] [facility]; Protocol Last Admin: 04/13/18 23:51 Dose: Not Given Sodium Chloride (Sodium Chloride 0.45%) 1,000 mls @ 50 mls/hr IV .Q20H [facility] Last Admin: 04/13/18 12:14 Dose: 50 mls/hr Labetalol HCl 250 mg/ Sodium (Chloride) 250 mls @ 60 mls/hr IV .Q4H10M PRN; Protocol PRN Reason: TITRATE PER MD ORDER Last Admin: 04/14/18 03:11 Dose: 1.5 mg/min, 90 mls/hr Cefepime HCl (Maxipime 2gm) 2 gm in 100 mls @ 25 mls/hr IVPB DAILY JR; Protocol Stop: 04/18/18 10:01 Last Admin: 04/14/18 09:04 Dose: 25 mls/hr Propofol (Diprivan) 1,000 mg in 100 mls @ 4.218 mls/hr IV .[id number] PRN; Protocol PRN Reason: TITRATE PER MD ORDER Insulin Human Regular (Humulin R Low) 0 units SC ACHS [facility]; Protocol Last Admin: 04/14/18 11:30 Dose: Not Given Isosorbide Mononitrate (Imdur Er) 30 mg PO DAILY [facility] Last Admin: 04/14/18 14:06 Dose: Not Given Levalbuterol HCl (Xopenex) 1.25 mg IH [id number] PRN PRN Reason: Shortness of Breath Methylprednisolone (Solu-Medrol) 30 mg IVP Q12 [facility] Last Admin: 04/14/18 09:22 Dose: 30 mg Metoprolol Tartrate (Lopressor) 100 mg PO BID [facility] Last Admin: 04/14/18 14:06 Dose: Not Given Ondansetron HCl (Zofran Inj) 4 mg IVP Q6H PRN PRN Reason: Nausea/Vomiting Last Admin: 04/11/18 12:10 Dose: 4 mg Pantoprazole Sodium (Protonix Inj) 40 mg IVP DAILY [facility] Last Admin: 04/14/18 09:22 Dose: 40 mg - Labs Labs: 04/14/18 05:30 04/14/18 05:30 PT 19.0 SECONDS (9.4-12.5) H 04/14/18 05:30 INR 1.64 04/14/18 05:30 APTT 28.9 Seconds (25.1-36.5) 04/14/18 05:30 Attending/Attestation - Attestation I have personally seen and examined this patient.: Yes I have fully participated in the care of the patient.: Yes I have reviewed all pertinent clinical information, including history, physical exam and plan: Yes
[2018-04-12] MEDS ORDERED: Sodium Chloride 0.45% 1,000 ML IV SCH (09:30)
--- NOTE | 2018-04-12 10:01 | CP.PCM.PN ---
Subjective - Date & Time of Evaluation Date of Evaluation: 04/12/18 Time of Evaluation: 09:38 - Subjective Subjective: General Surgery Progress Note for Dr. Dutta covering for Dr. Mckeon 62F seen and evaluated at bedside this morning. Patient hypertensive and tachycardic overnight. Continues to refuse the contrast and NG tube. Patient lethargic but responsive. Complaining of left sided abdominal pain. No ostomy output. Denies f/c, n/v/d, CP, or urinary symptoms. Objective - Vital Signs/Intake and Output Vital Signs (last 24 hours): Temp Pulse Resp BP Pulse Ox 98.8 F 129 H 18 211/97 H 94 L 04/12/18 06:00 04/12/18 08:36 04/12/18 06:00 04/12/18 08:36 04/12/18 06:00 Intake and Output: 04/12/18 04/12/18 06:59 18:59 Intake Total 1850 Output Total 0 Balance 1850 - Medications Medications: Current Medications Arformoterol Tartrate (Brovana) 15 mcg IH [id number] [facility] Last Admin: 04/12/18 08:07 Dose: 15 mcg Budesonide (Pulmicort Respules) 0.5 mg IH [id number] [facility] Last Admin: 04/12/18 08:07 Dose: 0.5 mg Clonidine HCl (Catapres-Tts3 0.3 Mg/24 Hr) 1 patch TD Q7D@1000 JR Last Admin: 04/11/18 18:17 Dose: 1 patch Docusate Sodium (Colace) 100 mg PO TID [facility] Last Admin: 04/11/18 18:18 Dose: Not Given Enoxaparin Sodium (Lovenox) 40 mg SC DAILY [facility]; Protocol Last Admin: 04/11/18 12:06 Dose: 40 mg Hydralazine HCl (Apresoline) 10 mg IVP Q4 JR Hydralazine HCl (Apresoline) 50 mg PO TID [facility] Hydromorphone HCl (Dilaudid) 1 mg IVP Q4H PRN PRN Reason: Pain, moderate (4-7) Last Admin: 04/12/18 04:09 Dose: 1 mg Metronidazole (Flagyl) 500 mg in 100 mls @ 100 mls/hr IVPB Q8 [facility]; Protocol Last Admin: 04/12/18 05:34 Dose: 100 mls/hr Ceftriaxone Sodium (Rocephin 1 Gram Ivpb) 1 gm in 100 mls @ 100 mls/hr IVPB DAILY [facility]; Protocol Last Admin: 04/11/18 12:07 Dose: 100 mls/hr Sodium Chloride (Sodium Chloride 0.45%) 1,000 mls @ 75 mls/hr IV .[id number] [facility] Insulin Human Regular (Humulin R Low) 0 units SC ACHS [facility]; Protocol Last Admin: 04/11/18 22:03 Dose: Not Given Isosorbide Mononitrate (Imdur Er) 30 mg PO DAILY [facility] Labetalol HCl (Trandate) 20 mg IV Q6 JR Levalbuterol HCl (Xopenex) 1.25 mg IH [id number] PRN PRN Reason: Shortness of Breath Methylprednisolone (Solu-Medrol) 30 mg IVP Q12 [facility] Last Admin: 04/11/18 22:00 Dose: 30 mg Metoprolol Tartrate (Lopressor) 50 mg PO BID [facility] Ondansetron HCl (Zofran Inj) 4 mg IVP Q6H PRN PRN Reason: Nausea/Vomiting Last Admin: 04/11/18 12:10 Dose: 4 mg Pantoprazole Sodium (Protonix Inj) 40 mg IVP DAILY [facility] Last Admin: 04/11/18 12:05 Dose: 40 mg - Labs Labs: 04/12/18 06:50 04/12/18 06:50 PT 12.4 SECONDS (9.4-12.5) 04/08/18 22:30 INR 1.09 04/08/18 22:30 APTT 29.8 Seconds (25.1-36.5) 04/08/18 22:30 Assessment and Plan - Assessment and Plan (Free Text) Assessment: 62F w/ history of rectal carcinoma s/p APR and loop colostomy presents w/ pSBO Plan: NPO IVF Monitor AM labs Monitor ostomy output Analgesics and anti-emetics Continue IV Abx per ID NGT placement CT abdomen pelvis w/ PO contrast through NGT Possible need for surgical intervention secondary to obstruction Pt to be transferred to ICU Further recommendations per Dr. Dutta/Mike Atkinson PGY1
--- NOTE | 2018-04-12 10:49 | PN ---
DATE: 04/11/2018 SUBJECTIVE: The patient seems to complain of abdominal pain. She runs high blood pressure, 200 systolic. The patient had vomiting. Cannot take any p.o. medicines. PHYSICAL EXAMINATION: On 04/11/2018 is as follows: VITAL SIGNS: Temperature 98.9, heart rate 132, blood pressure 206/86, respirations 20. The patient had repeat blood pressure after medication given, came down to 169 and the patient seems stable. HEAD AND NECK: Normal. No JVD. No thyromegaly. CHEST: Clear bilateral. CARDIAC: First sound and second sound normal. Tachycardic. ABDOMEN: Soft. There is tenderness allover the abdomen. Colostomy bag on the right side. EXTREMITIES: No edema. NEUROLOGIC: Normal. LABORATORY DATA: Shows on 04/11/2018, white count 10.6, hemoglobin 8.9, hematocrit 29.9, platelets 286. Chemistry shows sodium 145, potassium 5.2, chloride 113, bicarb 28, BUN 67, creatinine 2.1, blood sugar 194, calcium 9, total bilirubin 0.4, AST normal, ALT normal, alk phos 158. IMPRESSION AND PLAN: 1. Abdominal pain. CT shows small bowel obstructions. Will need surgical reevaluations. The patient is vomiting. Discussed with Dr. Ayala to get the video engineer. We will keep the patient n.p.o. and video engineer's team to see the patient because of her comorbid illnesses and necessity of needing IV medication more often. 2. Obstructive sleep apnea, morbid obesity, chronic obstructive pulmonary disease. We will give her a small dose of steroids, nebulizer treatment, and also continue BiPAP as tolerated. 3. Diabetes. Continue insulin coverage. Blood sugar runs in 170s-180s. 4. Acute renal failure. Continue IV fluid. We will repeat lab in the morning. Discussed with the energy scheduler about blood pressure. He will give labetalol 20, which he ordered, but he will come back and put labetalol standing orders. We will keep monitoring her blood pressures, this lady will need more medicine to keep blood pressure down. We will discuss further with the energy scheduler. 5. The patient has history of rectal cancer with colostomy. Follow up with Dr. Faye. Chronic back pain. Continue Dilaudid in the minimum dose as needed because of the bowel obstructions. At this time, continue current medicine, follow up clinically. Currently, she is on hydralazine 10 mg IV every 4 hours. Continue Brovana and Pulmicort. Dilaudid 1 mg, Flagyl and Rocephin, insulin coverage, Lovenox 40, Protonix 40, Solu-Medrol 30 IV every 12 hours. Labetalol was ordered. Xopenex and Zofran. Continue current medications. Follow up clinically. The patient was seen by Cardiology, Dr. Guerrero, and by Nephrology, Dr. Dawn. Elroy Florian MD
[2018-04-12] MEDS: MethylPREDNISolone 40 mg Vial IVP SCH ×2 (10:54→21:08)
[2018-04-12] MEDS: cefTRIAXone 1 gm 1 GM/100 ML BAG IVPB SCH (11:10)
[2018-04-12] MEDS: Insulin Reg-LOW-Coverage SC SCH ×4 (11:11→21:08)
--- NOTE | 2018-04-12 11:48 | RAD ---
Date of service: 04/12/2018 HISTORY: r/o obstruction COMPARISON: None available. FINDINGS: BOWEL: No visible free air on this limited study single-view AP upright study. Dilated proximal small bowel loops. BONES: Normal. OTHER FINDINGS: None. IMPRESSION: No visible free air. Incomplete assessment described above.
--- NOTE | 2018-04-12 12:10 | CP.PCM.PN ---
Subjective - Date & Time of Evaluation Date of Evaluation: 04/12/18 Time of Evaluation: 09:40 - Subjective Subjective: Still having some abdominal pain, no fevers, still feels weak. Objective - Vital Signs/Intake and Output Vital Signs (last 24 hours): Temp Pulse Resp BP Pulse Ox 98.5 F 91 H 20 179/71 H 97 04/11/18 05:51 04/11/18 06:01 04/11/18 05:51 04/11/18 06:01 04/11/18 05:51 Intake and Output: 04/11/18 04/11/18 06:59 18:59 Intake Total 800 Balance 800 - Medications Medications: Current Medications Amlodipine Besylate (Norvasc) 10 mg PO DAILY [facility] Last Admin: 04/10/18 11:23 Dose: Not Given Arformoterol Tartrate (Brovana) 15 mcg IH [id number] [facility] Last Admin: 04/11/18 08:00 Dose: 15 mcg Budesonide (Pulmicort Respules) 0.5 mg IH [id number] [facility] Last Admin: 04/11/18 08:00 Dose: 0.5 mg Clonidine HCl (Catapres Tts1 0.1 Mg/24 Hr) 1 patch TD Q7D@1000 JR Enoxaparin Sodium (Lovenox) 40 mg SC DAILY [facility]; Protocol Last Admin: 04/10/18 11:21 Dose: 40 mg Hydralazine HCl (Apresoline) 10 mg IVP Q6 PRN PRN Reason: Systolic Blood Pressure Last Admin: 04/11/18 02:23 Dose: 10 mg Hydralazine HCl (Apresoline) 50 mg PO TID [facility] Last Admin: 04/10/18 13:36 Dose: Not Given Hydralazine HCl (Apresoline) 50 mg PO BID [facility] Hydromorphone HCl (Dilaudid) 1 mg IVP Q4H PRN PRN Reason: Pain, moderate (4-7) Last Admin: 04/11/18 03:23 Dose: 1 mg Metronidazole (Flagyl) 500 mg in 100 mls @ 100 mls/hr IVPB Q8 [facility]; Protocol Last Admin: 04/11/18 06:03 Dose: 100 mls/hr Ceftriaxone Sodium (Rocephin 1 Gram Ivpb) 1 gm in 100 mls @ 100 mls/hr IVPB DAILY [facility]; Protocol Last Admin: 04/10/18 11:22 Dose: 100 mls/hr Sodium Chloride (Sodium Chloride 0.9%) 1,000 mls @ 50 mls/hr IV .Q20H [facility] Insulin Human Regular (Humulin R Low) 0 units SC ACHS [facility]; Protocol Last Admin: 04/10/18 22:09 Dose: Not Given Methylprednisolone (Solu-Medrol) 30 mg IVP Q12 [facility] Metoprolol Succinate (Toprol Xl) 100 mg PO BRK [facility] Metoprolol Tartrate (Lopressor) 5 mg IV Q6H [facility] Last Admin: 04/11/18 06:01 Dose: 5 mg Ondansetron HCl (Zofran Inj) 4 mg IVP Q6H PRN PRN Reason: Nausea/Vomiting Last Admin: 04/11/18 04:00 Dose: 4 mg Pantoprazole Sodium (Protonix Inj) 40 mg IVP DAILY [facility] Last Admin: 04/10/18 11:22 Dose: 40 mg - Labs Labs: 04/11/18 07:00 04/11/18 07:00 PT 12.4 SECONDS (9.4-12.5) 04/08/18 22:30 INR 1.09 04/08/18 22:30 APTT 29.8 Seconds (25.1-36.5) 04/08/18 22:30 - Constitutional Appears: Chronically Ill - Head Exam Head Exam: NORMAL INSPECTION - Respiratory Exam Respiratory Exam: Decreased Breath Sounds - Cardiovascular Exam Cardiovascular Exam: +S1, +S2 - GI/Abdominal Exam GI & Abdominal Exam: Soft. absent: Tenderness Assessment and Plan - Assessment and Plan (Free Text) Plan: Assessment consider partial small bowel obstruction COPD history of VRE UTI history of severe sepsis secondary to left medial thigh abscess, growing Proteus, S/P incision and drainage DM HTN CAD Unresectable rectal cancer S/P chemotherapy and radiation therapy S/P colostomy S/P Port-a-cath placement morbid obesity with BMI 50 obstructive sleep apnea history of pulmonary embolism S/P IVC filter placement Plan continue Rocephin and Flagyl day 2 - will keep while patient is NPO and will await blood cx follow up further plans of surgery and see how her diet is advanced will continue to monitor clinically
[2018-04-12] MEDS ORDERED: Lidocaine 2% Jelly (Uro-Jet) TOP ONE (12:34)
[2018-04-12] MEDS ORDERED: Labetalol 100 MG in Sodium Chloride 0.9% 80 ML IV PRN (14:07)
[2018-04-12] MEDS: Heparin25000 units/250ml 1/2NS 25,000 UNITS/250 ML BAG IV SCH (14:33)
--- NOTE | 2018-04-12 14:48 | RAD ---
Date of service: 04/12/2018 HISTORY: NGT placement COMPARISON: 04/08/2018 FINDINGS: LUNGS: There is moderate perihilar edema PLEURA: No significant pleural effusion identified, no pneumothorax apparent. CARDIOVASCULAR: Aortic calcification Moderate cardiomegaly no pulmonary vascular congestion. OSSEOUS STRUCTURES: No significant abnormalities. VISUALIZED UPPER ABDOMEN: Nasogastric tube in satisfactory position OTHER FINDINGS: None. IMPRESSION: Nasogastric tube in satisfactory position
[2018-04-12] MEDS ORDERED: Metoprolol 1 mg/ml Inj IVP PRN (15:06)
--- NOTE | 2018-04-12 15:21 | CP.PCM.PN ---
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 Yesterday patient could not tolerate po contrast thus CT abd/pelvis cancelled. Patient lethargic but responsive. Complaining of left sided abdominal pain. No ostomy output. Denies f/c, n/v/d, CP, or urinary symptoms. Objective - Vital Signs/Intake and Output Vital Signs (last 24 hours): Temp Pulse Resp BP Pulse Ox 99.8 F H 123 H 21 203/101 H 94 L 04/12/18 12:00 04/12/18 14:17 04/12/18 12:00 04/12/18 14:17 04/12/18 06:00 Intake and Output: 04/12/18 04/12/18 06:59 18:59 Intake Total 1850 Output Total 0 Balance 1850 - Medications Medications: Current Medications Arformoterol Tartrate (Brovana) 15 mcg IH [id number] [facility] Last Admin: 04/12/18 08:07 Dose: 15 mcg Budesonide (Pulmicort Respules) 0.5 mg IH [id number] [facility] Last Admin: 04/12/18 08:07 Dose: 0.5 mg Clonidine HCl (Catapres-Tts3 0.3 Mg/24 Hr) 1 patch TD Q7D@1000 [facility] Last Admin: 04/11/18 18:17 Dose: 1 patch Docusate Sodium (Colace) 100 mg PO TID [facility] Last Admin: 04/12/18 11:05 Dose: 100 mg Enoxaparin Sodium (Lovenox) 40 mg SC DAILY [facility]; Protocol Last Admin: 04/11/18 12:06 Dose: 40 mg Hydralazine HCl (Apresoline) 50 mg PO TID [facility] Last Admin: 04/12/18 15:07 Dose: Not Given Hydralazine HCl (Apresoline) 10 mg IVP Q4 PRN PRN Reason: Other Hydromorphone HCl (Dilaudid) 1 mg IVP Q4H PRN PRN Reason: Pain, moderate (4-7) Last Admin: 04/12/18 13:17 Dose: 1 mg Ceftriaxone Sodium (Rocephin 1 Gram Ivpb) 1 gm in 100 mls @ 100 mls/hr IVPB DAILY [facility]; Protocol Stop: 04/14/18 10:59 Last Admin: 04/12/18 11:10 Dose: 100 mls/hr Labetalol HCl 100 mg/ Sodium (Chloride) 100 mls @ 60 mls/hr IV .Q1H40M PRN; Protocol PRN Reason: TITRATE PER MD ORDER Heparin Sodium/Sodium Chloride (Heparin 12100 Units/250ml 1/2 Normal Saline) 25,000 units in 250 mls @ 16.346 mls/hr IV .[id number] [facility]; Protocol Last Admin: 04/12/18 14:33 Dose: 12 units/kg/hr, 16.346 mls/hr Sodium Chloride (Sodium Chloride 0.45%) 1,000 mls @ 50 mls/hr IV .Q20H [facility] Insulin Human Regular (Humulin R Low) 0 units SC ACHS [facility]; Protocol Last Admin: 04/12/18 13:11 Dose: 3 unit Isosorbide Mononitrate (Imdur Er) 30 mg PO DAILY [facility] Last Admin: 04/12/18 13:13 Dose: Not Given Levalbuterol HCl (Xopenex) 1.25 mg IH [id number] PRN PRN Reason: Shortness of Breath Methylprednisolone (Solu-Medrol) 30 mg IVP Q12 [facility] Last Admin: 04/12/18 10:54 Dose: 30 mg Metoprolol Tartrate (Lopressor) 50 mg PO BID [facility] Last Admin: 04/12/18 11:09 Dose: 50 mg Metoprolol Tartrate (Lopressor) 5 mg IVP Q6 PRN PRN Reason: Other Ondansetron HCl (Zofran Inj) 4 mg IVP Q6H PRN PRN Reason: Nausea/Vomiting Last Admin: 04/11/18 12:10 Dose: 4 mg Pantoprazole Sodium (Protonix Inj) 40 mg IVP DAILY [facility] Last Admin: 04/12/18 10:54 Dose: 40 mg - Labs Labs: 04/12/18 06:50 04/12/18 06:50 PT 12.4 SECONDS (9.4-12.5) 04/08/18 22:30 INR 1.09 04/08/18 22:30 APTT 29.8 Seconds (25.1-36.5) 04/08/18 22:30 - Additional Findings Additional findings: - Constitutional Appears: Non-toxic, No Acute Distress - Head Exam Head Exam: NORMAL INSPECTION - Eye Exam Eye Exam: Normal appearance - ENT Exam ENT Exam: Mucous Membranes Moist - Respiratory Exam Respiratory Exam: NORMAL BREATHING PATTERN. absent: Accessory Muscle Use, Respiratory Distress - Cardiovascular Exam Cardiovascular Exam: absent: Bradycardia, Tachycardia - GI/Abdominal Exam GI & Abdominal Exam: Distended (obese), Hernia (parastomal and ventral wall), Soft. absent: Guarding, Rebound Additional comments: loop colostomy w/o ostomy output stoma pink, patent - Extremities Exam Extremities exam: Positive for: normal inspection - Neurological Exam Neurological exam: Alert, Oriented x3 - Psychiatric Exam Psychiatric exam: Normal Affect, Normal Mood - Skin Skin Exam: Dry, Intact, Normal Color, Warm Assessment and Plan - Assessment and Plan (Free Text) Plan: Mrs Guevara is a 62 year old female with a PMHx of CAD, diastolic CHF, DM2, HTN, CKD, DVT/PE on eliquis, w/ loop colostomy 2/2 rectal adenocarcinoma presents to the ED sent from [facility] at direction of PMD for abd pain and low hemoglobin: Partial Small Bowel Obstruction Loop Colostomy 2/2 Rectal Adenocarcinoma Non-obstructing Paracolostomy Hernia -CT scan as read by Dr Benitez shows a paracolostomy hernia that does not appear to be obstructed -rectal CA (2013) s/p chemoradiation, colostomy, PET scan 2016 - no systemic disease, CEA 09/2017 4.4, CEA 02/2018 5.4 -iron studies from last month indicative of anemia of chronic disease/anemia of chronic kidney disease, Hgb ranges from 8 to 10 over the last two years, no evidence of ed bleeding at this time, however GI bleed cannot be ruled out -would continue OAC consider previous b/l PE and no signs of major bleed at this time. However, she must be monitored closely -tolerating clear liquid diet -continue PPI, IVF, NGT if vomiting develops, stool softeners -monitor ostomy site output for melena, bloody -started on rocephin and flagyl by ID -would recommend pulmonary evaluation, optimization -very complex, non-compliant patient currently with acute on chronic conditions. She is at very high risk for intraoperative complication. Will need to discuss with primary, anesthesia, cardiology, pulmonology before any endoscopic procedures to be done. Seen and discussed with Dr Benitez <Gita Benitez V - Last Filed: 04/12/18 23:38> Objective - Vital Signs/Intake and Output Vital Signs (last 24 hours): Temp Pulse Resp BP Pulse Ox 99 F 79 20 177/81 H 95 04/12/18 22:00 04/12/18 22:50 04/12/18 22:50 04/12/18 22:30 04/12/18 22:50 Intake and Output: 04/12/18 04/13/18 18:59 06:59 Intake Total 540 64 Output Total 0 Balance 540 64 - Medications Medications: Current Medications Arformoterol Tartrate (Brovana) 15 mcg IH [id number] [facility] Last Admin: 04/12/18 20:24 Dose: 15 mcg Budesonide (Pulmicort Respules) 0.5 mg IH [id number] [facility] Last Admin: 04/12/18 20:24 Dose: 0.5 mg Clonidine HCl (Catapres-Tts3 0.3 Mg/24 Hr) 1 patch TD Q7D@1000 [facility] Last Admin: 04/11/18 18:17 Dose: 1 patch Docusate Sodium (Colace) 100 mg PO TID [facility] Last Admin: 04/12/18 17:20 Dose: Not Given Enoxaparin Sodium (Lovenox) 40 mg SC DAILY [facility]; Protocol Last Admin: 04/11/18 12:06 Dose: 40 mg Hydralazine HCl (Apresoline) 50 mg PO TID [facility] Last Admin: 04/12/18 19:21 Dose: Not Given Hydromorphone HCl (Dilaudid) 1 mg IVP Q4H PRN PRN Reason: Pain, moderate (4-7) Last Admin: 04/12/18 21:04 Dose: 1 mg Ceftriaxone Sodium (Rocephin 1 Gram Ivpb) 1 gm in 100 mls @ 100 mls/hr IVPB DAILY [facility]; Protocol Stop: 04/14/18 10:59 Last Admin: 04/12/18 11:10 Dose: 100 mls/hr Heparin Sodium/Sodium Chloride (Heparin 27837 Units/250ml 1/2 Normal Saline) 25,000 units in 250 mls @ 16.346 mls/hr IV .[id number] [facility]; Protocol Last Titration: 04/12/18 22:11 Dose: 14 units/kg/hr, 19.07 mls/hr Sodium Chloride (Sodium Chloride 0.45%) 1,000 mls @ 50 mls/hr IV .Q20H JR Labetalol HCl 250 mg/ Sodium (Chloride) 250 mls @ 60 mls/hr IV .Q4H10M PRN; Protocol PRN Reason: TITRATE PER MD ORDER Last Admin: 04/12/18 21:11 Dose: 1 mg/min, 60 mls/hr Insulin Human Regular (Humulin R Low) 0 units SC ACHS [facility]; Protocol Last Admin: 04/12/18 21:08 Dose: 2 unit Isosorbide Mononitrate (Imdur Er) 30 mg PO DAILY [facility] Last Admin: 04/12/18 13:13 Dose: Not Given Levalbuterol HCl (Xopenex) 1.25 mg IH [id number] PRN PRN Reason: Shortness of Breath Methylprednisolone (Solu-Medrol) 30 mg IVP Q12 [facility] Last Admin: 04/12/18 21:08 Dose: 30 mg Metoprolol Tartrate (Lopressor) 50 mg PO BID [facility] Last Admin: 04/12/18 19:22 Dose: Not Given Ondansetron HCl (Zofran Inj) 4 mg IVP Q6H PRN PRN Reason: Nausea/Vomiting Last Admin: 04/11/18 12:10 Dose: 4 mg Pantoprazole Sodium (Protonix Inj) 40 mg IVP DAILY [facility] Last Admin: 04/12/18 10:54 Dose: 40 mg - Labs Labs: 04/12/18 06:50 04/12/18 06:50 PT 12.4 SECONDS (9.4-12.5) 04/08/18 22:30 INR 1.09 04/08/18 22:30 APTT 48.6 Seconds (25.1-36.5) H 04/12/18 21:21 Attending/Attestation - Attestation I have personally seen and examined this patient.: Yes I have fully participated in the care of the patient.: Yes I have reviewed all pertinent clinical information, including history, physical exam and plan: Yes Notes (Text): This is an addendum to GI followup report dictated by the Sergeant Missile Crewman. The patient was seen and evaluated earlier. Medical records, lab studies, imagings were reviewed. Last 24 hours events reviewed. Agreed with the above treatment plan as outlined in Sergeant Missile Crewman 's notes with the addition of the following 04/12/18 23:37
--- NOTE | 2018-04-12 15:36 | CP.PCM.PN ---
Subjective - Date & Time of Evaluation Date of Evaluation: 04/12/18 Time of Evaluation: 15:34 - Subjective Subjective: Nephrology Consultation Note: Assessment: critical SBO Acute Kidney Injury (N17.9) likely pre-renal state HTN urgency, hyperkalemia left adrenal adenoma, Rt renal hyperdense cyst chronic hypercapnic respi failure Diabetic chronic Kidney Disease (E11.22) Hypertensive Chronic Kidney Disease (I12.9) Chronic Kidney Disease (N18.3) Stage 3 with 2.4 gm proteinuria (R80.9) likely due to DM/HTN/Obesity Anemia Vit D def morbid obesity, CAD s/p stent, COPD/SUMMER, rectal ca s/p colostomy Plan No acute need for renal replacement therapy at this time. . HTN uncontrolled, transferred to ICU, started on labetalol drip. Monitor Input/Output, daily weights and renal function with basic metabolic panel continue with IVF as 0.45% saline @ 50 ml/hr while pt NPO pulmonary and surgery following defer management of anemia to heme/onc. due to hx of malignancy, will defer use of ESAs. PRBC as needed Adrenal adenoma work up with plasma renin/aldosterone, plasma metanephrine NEGATIVE. outpt 1 mg dexa suppression test repeat renal sono in 6 months to assess her Rt renal cyst Dose meds/antibiotics for reduced GFR. Avoid fleets enema/magnesium based laxatives. Avoid nephrotoxins/NSAIDs/ iodinated contrast (unless needed emergently) Glycemic control Further work up/management as per primary team Thanks for allowing me to participate in care of your patient. Will follow patie nt with you. Please call if any Qs. had d/w team Dr Dae Dawn Office: [phone] Chief Complaint; abdomen pain Reason for consult: Acute Kidney Injury, CKD 3 HPI: Pt is a 62 F with hx of diabetes Mellitus (15 years), hypertension (yea rs), CKD 3 with baseline cr 1.2-1.3 with AKIs, morbid obesity, CAD s/p stent, COPD/SUMMER on CPAP, rectal ca s/p colostomy presented with complaints of abdomen pain with nausea/vomiting. renal consult for CKD and SHELBI management. pt has no urine complaints. found to have partial SBO Denies OTC/herbal meds or NSAIDs No recent iodinated contrast exposure. No obvious episodes of low BP. ROS: improved pain abdomen with nausea/vomiting. no SOB. denies urine complaints. reports decreased oral intake. BP fluctuating but mostly high Physical Examination: General Appearance: Comfortable, co-operative . morbidly obese. ill appearing Vitals reviewed and noted as below Head; Atraumatic, normocephalic ENT: normal oral mucosa/dry. no rash/ulcer EYES: Pupils are equal, round and reactive to light accommodation. Eye muscles and extraocular movement intact. Sclera is anicteric. Neck; supple no lymphadenopathy, no thyromegaly or bruit Lungs: Normal respiratory rate/effort. Breath sounds bilateral equal, diminished at bases Heart: normal rate. s1s2 normal. No rub or gallop. Extremities: 2+ edema. No varicose veins Neurological: Patient is lethargic but oriented to person, place and time. No focal deficit. Strength bilateral appropriate and equal Skin: Warm and dry. Normal turgor. No rash. Palpitation: Normal elasticity for age Abdomen: Abdomen is soft. Bowel sounds +. There is no abdominal tenderness, no guarding/rigidity no organomegaly. has colostomy and ventral hernia Psych: normal insight and normal affect/mood MSK: no joint tenderness or swelling. Digits and nails normal, no deformity : kidney or bladder not palpable Labs/imaging reviewed. Past medical history, past surgical history, family history, social history, allergy reviewed and noted as below Family hx: no hx of CKD. Rest non-contributory PET CT 04/2017: neg CT abdomen: left adrenal adenoma 1.9 cm Rt kidney 2.6 cm hyperdense cyst UA 100 protein, neg for blood renin and roma low, metanehrine WNL PTH 133 Vit D 27 ANCA neg, K/L ratio WNL Objective - Vital Signs/Intake and Output Vital Signs (last 24 hours): Temp Pulse Resp BP Pulse Ox 99.8 F H 123 H 21 203/101 H 94 L 04/12/18 12:00 04/12/18 14:17 04/12/18 12:00 04/12/18 14:17 04/12/18 06:00 Intake and Output: 04/12/18 04/12/18 06:59 18:59 Intake Total 1850 Output Total 0 Balance 1850 - Medications Medications: Current Medications Arformoterol Tartrate (Brovana) 15 mcg IH [id number] Last Admin: 04/12/18 08:07 Dose: 15 mcg Budesonide (Pulmicort Respules) 0.5 mg IH [id number] [facility] Last Admin: 04/12/18 08:07 Dose: 0.5 mg Clonidine HCl (Catapres-Tts3 0.3 Mg/24 Hr) 1 patch TD Q7D@1000 JR Last Admin: 04/11/18 18:17 Dose: 1 patch Docusate Sodium (Colace) 100 mg PO TID [facility] Last Admin: 04/12/18 11:05 Dose: 100 mg Enoxaparin Sodium (Lovenox) 40 mg SC DAILY [facility]; Protocol Last Admin: 04/11/18 12:06 Dose: 40 mg Hydralazine HCl (Apresoline) 50 mg PO TID [facility] Last Admin: 04/12/18 15:07 Dose: Not Given Hydralazine HCl (Apresoline) 10 mg IVP Q4 PRN PRN Reason: 170/110 Hydromorphone HCl (Dilaudid) 1 mg IVP Q4H PRN PRN Reason: Pain, moderate (4-7) Last Admin: 04/12/18 13:17 Dose: 1 mg Ceftriaxone Sodium (Rocephin 1 Gram Ivpb) 1 gm in 100 mls @ 100 mls/hr IVPB DAILY [facility]; Protocol Stop: 04/14/18 10:59 Last Admin: 04/12/18 11:10 Dose: 100 mls/hr Labetalol HCl 100 mg/ Sodium (Chloride) 100 mls @ 60 mls/hr IV .Q1H40M PRN; Protocol PRN Reason: TITRATE PER MD ORDER Heparin Sodium/Sodium Chloride (Heparin 11561 Units/250ml 1/2 Normal Saline) 25,000 units in 250 mls @ 16.346 mls/hr IV .[id number] JR; Protocol Last Admin: 04/12/18 14:33 Dose: 12 units/kg/hr, 16.346 mls/hr Sodium Chloride (Sodium Chloride 0.45%) 1,000 mls @ 50 mls/hr IV .Q20H JR Insulin Human Regular (Humulin R Low) 0 units SC ACHS [facility]; Protocol Last Admin: 04/12/18 13:11 Dose: 3 unit Isosorbide Mononitrate (Imdur Er) 30 mg PO DAILY [facility] Last Admin: 04/12/18 13:13 Dose: Not Given Levalbuterol HCl (Xopenex) 1.25 mg IH [id number] PRN PRN Reason: Shortness of Breath Methylprednisolone (Solu-Medrol) 30 mg IVP Q12 [facility] Last Admin: 04/12/18 10:54 Dose: 30 mg Metoprolol Tartrate (Lopressor) 50 mg PO BID [facility] Last Admin: 04/12/18 11:09 Dose: 50 mg Ondansetron HCl (Zofran Inj) 4 mg IVP Q6H PRN PRN Reason: Nausea/Vomiting Last Admin: 04/11/18 12:10 Dose: 4 mg Pantoprazole Sodium (Protonix Inj) 40 mg IVP DAILY [facility] Last Admin: 04/12/18 10:54 Dose: 40 mg - Labs Labs: 04/12/18 06:50 04/12/18 06:50 PT 12.4 SECONDS (9.4-12.5) 04/08/18 22:30 INR 1.09 04/08/18 22:30 APTT 29.8 Seconds (25.1-36.5) 04/08/18 22:30
--- NOTE | 2018-04-12 15:54 | PN ---
DATE: 04/12/2018 This note is in addition to dictated by our nurse practitioner, Tiffanie Osborne. REASON FOR DICTATION: Cardiac evaluation, abdominal pain, history of coronary artery disease, borderline positive troponin in phase of renal insufficiency. SUBJECTIVE: The patient denies any chest pain, shortness of breath, or any palpitation. Blood pressure is still elevated. Started on clonidine patch and hydralazine. We will increase hydralazine to 50 mg t.i.d. Continue to monitor closely blood pressure. Discussed with Dr. Florian. Borderline troponin is most likely secondary to underlying renal insufficiency. Monitor H and H. The patient admitted with small bowel obstruction. Creatinine clearance is around 20 mL. Troponin 0.3, probably secondary to demand and supply ischemia versus uncontrolled hypertension LA. Anyway, the patient is not a candidate to go to the cathode builder. No complaint of chest pain. We will treat medically. Continue beta-joseph. We will put 50 b.i.d. beta-joseph as well as we will put some nitrate. We will put again metoprolol 50 twice a day and Imdur 60 mg once a day. We will follow. Thank you, Dr. Florian, for providing us the opportunity in taking care of the patient, Pedro Guevara. Pamela Guerrero MD
--- NOTE | 2018-04-12 16:49 | CP.PCM.CON ---
<Chidi Cunningham - Last Filed: 04/12/18 17:27> History of Present Illness - History of Present Illness History of Present Illness: Patient is a 62 morbidly obese F with history of rectal adenocarcinoma s/p abdominal perinea resection, radiation, chemotherapy and 2 colostomies, CAD, hypertension, congestive heart failure, DVT/PE s/p filter and on eliquis for anticoagulation who was brought to the emergency department from [facility] as requested by her PMD due to low hemoglobin and abdominal pain. Workup in emergency department was normal except for partial small bowel obstr uction with a transition zone in lower right quadrant, non-incarcerated anterior abdominal wall hernia. During course of hospital stay patient was found to experience episodes of hypotension and hypertension. Patient was also found to have elevated troponins. With signs of end organ damage and hypertension, patient was found to be in hypertensive emergency and therefore transferred to the ICU for management of her condition. Review of Systems - Constitutional Constitutional: Anorexia, Fatigue, Malaise. absent: Chills, Increased Appetite - EENT Eyes: absent: Change in Vision - Cardiovascular Cardiovascular: absent: Chest Pain - Respiratory Respiratory: absent: Cough, Dyspnea - Gastrointestinal Gastrointestinal: Abdominal Pain, Vomiting. absent: Diarrhea - Genitourinary Genitourinary: absent: Dysuria - Neurological Neurological: absent: Dizziness - Psychiatric Psychiatric: absent: Confusion Past Patient History - Infectious Disease Hx of Infectious Diseases: None - Tetanus Immunizations Tetanus Immunization: Unknown - Past Social History Smoking Status: Never Smoked - CARDIAC Hx Congestive Heart Failure: Yes Hx Hypertension: Yes - PULMONARY Hx Respiratory Disorders: Yes Hx Bronchitis: Yes Hx Chronic Obstructive Pulmonary Disease (COPD): Yes Hx Pulmonary Embolism: Yes - NEUROLOGICAL Hx Neurological Disorder: Yes Hx Dizziness: Yes - HEENT Hx Macular Degeneration: No - RENAL Hx Renal Failure: Yes - ENDOCRINE/METABOLIC Hx Diabetes Mellitus Type 2: Yes - HEMATOLOGICAL/ONCOLOGICAL Hx Blood Disorders: No - INTEGUMENTARY Hx Dermatological Problems: No - MUSCULOSKELETAL/RHEUMATOLOGICAL Hx Falls: No - GASTROINTESTINAL Hx Gastrointestinal Disorders: Yes (RECTAL CA WITH COLOSTOMY,GI BLEED) - GENITOURINARY/GYNECOLOGICAL Hx Genitourinary Disorders: Yes (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,UTI) - PSYCHIATRIC Hx Psychophysiologic Disorder: Yes Hx Anxiety: Yes Hx Substance Use: No - SURGICAL HISTORY Hx Appendectomy: Yes Hx Coronary Stent: Yes Other/Comment: colostomy - ANESTHESIA Hx Anesthesia: Yes Hx Anesthesia Reactions: No Hx Malignant Hyperthermia: No Meds Allergies/Adverse Reactions: Allergies Allergy/AdvReac Type Severity Reaction Status Date / Time No Known Allergies Allergy Verified 04/08/18 21:16 - Medications Medications: Current Medications Arformoterol Tartrate (Brovana) 15 mcg IH [id number] [facility] Last Admin: 04/12/18 08:07 Dose: 15 mcg Budesonide (Pulmicort Respules) 0.5 mg IH [id number] [facility] Last Admin: 04/12/18 08:07 Dose: 0.5 mg Clonidine HCl (Catapres-Tts3 0.3 Mg/24 Hr) 1 patch TD Q7D@1000 [facility] Last Admin: 04/11/18 18:17 Dose: 1 patch Docusate Sodium (Colace) 100 mg PO TID [facility] Last Admin: 04/12/18 16:08 Dose: Not Given Enoxaparin Sodium (Lovenox) 40 mg SC DAILY [facility]; Protocol Last Admin: 04/11/18 12:06 Dose: 40 mg Hydralazine HCl (Apresoline) 50 mg PO TID [facility] Last Admin: 04/12/18 15:07 Dose: Not Given Hydromorphone HCl (Dilaudid) 1 mg IVP Q4H PRN PRN Reason: Pain, moderate (4-7) Last Admin: 04/12/18 13:17 Dose: 1 mg Ceftriaxone Sodium (Rocephin 1 Gram Ivpb) 1 gm in 100 mls @ 100 mls/hr IVPB DAILY [facility]; Protocol Stop: 04/14/18 10:59 Last Admin: 04/12/18 11:10 Dose: 100 mls/hr Labetalol HCl 100 mg/ Sodium (Chloride) 100 mls @ 60 mls/hr IV .Q1H40M PRN; Protocol PRN Reason: TITRATE PER MD ORDER Last Admin: 04/12/18 15:22 Dose: 1 mg/min, 60 mls/hr Heparin Sodium/Sodium Chloride (Heparin 27361 Units/250ml 1/2 Normal Saline) 25,000 units in 250 mls @ 16.346 mls/hr IV .[id number] [facility]; Protocol Last Admin: 04/12/18 14:33 Dose: 12 units/kg/hr, 16.346 mls/hr Sodium Chloride (Sodium Chloride 0.45%) 1,000 mls @ 50 mls/hr IV .Q20H [facility] Insulin Human Regular (Humulin R Low) 0 units SC ACHS [facility]; Protocol Last Admin: 04/12/18 13:11 Dose: 3 unit Isosorbide Mononitrate (Imdur Er) 30 mg PO DAILY [facility] Last Admin: 04/12/18 13:13 Dose: Not Given Levalbuterol HCl (Xopenex) 1.25 mg IH [id number] PRN PRN Reason: Shortness of Breath Methylprednisolone (Solu-Medrol) 30 mg IVP Q12 [facility] Last Admin: 04/12/18 10:54 Dose: 30 mg Metoprolol Tartrate (Lopressor) 50 mg PO BID [facility] Last Admin: 04/12/18 11:09 Dose: 50 mg Ondansetron HCl (Zofran Inj) 4 mg IVP Q6H PRN PRN Reason: Nausea/Vomiting Last Admin: 04/11/18 12:10 Dose: 4 mg Pantoprazole Sodium (Protonix Inj) 40 mg IVP DAILY [facility] Last Admin: 04/12/18 10:54 Dose: 40 mg Physical Exam - Constitutional Appears: Non-toxic - Head Exam Head Exam: ATRAUMATIC, NORMAL INSPECTION, NORMOCEPHALIC - Eye Exam Eye Exam: Normal appearance - ENT Exam ENT Exam: Mucous Membranes Dry Additional comments: NG tube in place - Respiratory Exam Respiratory Exam: Rhonchi. absent: Wheezes, NORMAL BREATHING PATTERN - Cardiovascular Exam Cardiovascular Exam: REGULAR RHYTHM - GI/Abdominal Exam GI & Abdominal Exam: Hyperactive Bowel Sounds, Soft Additional comments: ostomy site has no purulent drainage, no erythema - Extremities Exam Extremities exam: Positive for: calf tenderness. Negative for: normal i nspection - Neurological Exam Neurological exam: Oriented x3 - Psychiatric Exam Psychiatric exam: Normal Affect, Normal Mood - Skin Skin Exam: Dry, Intact, Warm Results - Vital Signs Recent Vital Signs: Last Vital Signs Temp 99.8 F H 04/12/18 12:00 Pulse 94 H 04/12/18 15:22 Resp 21 04/12/18 12:00 BP 191/81 H 04/12/18 15:22 Pulse Ox 94 L 04/12/18 06:00 - Labs Result Diagrams: 04/12/18 06:50 04/12/18 06:50 Labs: Laboratory Results - last 24 hr 04/10/18 04/11/18 04/11/18 09:00 17:11 21:20 WBC RBC Hgb Hct MCV MCH MCHC RDW Plt Count MPV Gran % Lymph % (Auto) Elbert % (Auto) Eos % (Auto) Baso % (Auto) Gran # Lymph # (Auto) Elbert # (Auto) Eos # (Auto) Baso # (Auto) pCO2 pO2 HCO3 ABG pH ABG Total CO2 ABG O2 Saturation ABG O2 Content ABG Base Excess ABG Hemoglobin ABG Carboxyhemoglobin POC ABG HHb (Measured) ABG Methemoglobin ABG O2 Capacity Hgb O2 Saturation FiO2 Sodium Potassium Chloride Carbon Dioxide Anion Gap BUN Creatinine Est GFR ( Amer) Est GFR (Non-Af Amer) POC Glucose (mg/dL) 213 H 223 H Random Glucose Calcium Total Bilirubin AST ALT Alkaline Phosphatase Troponin I Total Protein Albumin Globulin Albumin/Globulin Ratio Whole Blood Lead <1 04/12/18 04/12/18 04/12/18 06:20 06:50 06:50 WBC 8.9 RBC 3.37 L Hgb 8.7 L Hct 29.7 L MCV 88.1 MCH 25.8 MCHC 29.3 L RDW 19.2 H Plt Count 273 MPV 10.9 Gran % 82.0 H Lymph % (Auto) 13.6 L Elbert % (Auto) 4.2 Eos % (Auto) 0.0 L Baso % (Auto) 0.2 Gran # 7.31 H Lymph # (Auto) 1.2 Elbert # (Auto) 0.4 Eos # (Auto) 0.0 Baso # (Auto) 0.02 pCO2 35 pO2 103.0 H HCO3 19.3 L ABG pH 7.35 ABG Total CO2 20.4 L ABG O2 Saturation 99.4 H ABG O2 Content 10.6 L ABG Base Excess -5.7 L ABG Hemoglobin 7.7 L ABG Carboxyhemoglobin 2.3 H POC ABG HHb (Measured) 0.6 ABG Methemoglobin 1.5 ABG O2 Capacity 10.7 L Hgb O2 Saturation 95.6 FiO2 30.0 Sodium 150 H Potassium 5.0 Chloride 116 H Carbon Dioxide 27 Anion Gap 12 BUN 59 H Creatinine 1.8 H Est GFR ( Amer) 34 Est GFR (Non-Af Amer) 28 POC Glucose (mg/dL) Random Glucose 267 H Calcium 9.2 Total Bilirubin 0.4 AST 37 H ALT 17 Alkaline Phosphatase 160 H Troponin I Total Protein 7.0 Albumin 3.0 Globulin 4.0 Albumin/Globulin Ratio 0.8 L Whole Blood Lead 04/12/18 04/12/18 04/12/18 08:10 10:00 11:06 WBC RBC Hgb Hct MCV MCH MCHC RDW Plt Count MPV Gran % Lymph % (Auto) Elbert % (Auto) Eos % (Auto) Baso % (Auto) Gran # Lymph # (Auto) Elbert # (Auto) Eos # (Auto) Baso # (Auto) pCO2 pO2 HCO3 ABG pH ABG Total CO2 ABG O2 Saturation ABG O2 Content ABG Base Excess ABG Hemoglobin ABG Carboxyhemoglobin POC ABG HHb (Measured) ABG Methemoglobin ABG O2 Capacity Hgb O2 Saturation FiO2 Sodium Potassium Chloride Carbon Dioxide Anion Gap BUN Creatinine Est GFR ( Amer) Est GFR (Non-Af Amer) POC Glucose (mg/dL) 267 H 254 H Random Glucose Calcium Total Bilirubin AST ALT Alkaline Phosphatase Troponin I 1.30 H* D Total Protein Albumin Globulin Albumin/Globulin Ratio Whole Blood Lead Assessment & Plan - Assessment and Plan (Free Text) Assessment: Patient is a 62 morbidly obese F with history of rectal adenocarcinoma s/p abdominal perinea resection, radiation, chemotherapy and 2 colostomies, CAD, hypertension, congestive heart failure, DVT/PE s/p filter and on eliquis for anticoagulation who was brought to the emergency department from [facility] as requested by her PMD due to low hemoglobin and abdominal pain. Workup in emergency department was normal except for partial small bowel obstruction with a transition zone in lower right quadrant, non-incarcerated anterior abdominal wall hernia. During course of hospital stay patient was found to experience episodes of hypotension and hypertension. Patient was also found to have elevated troponins. With signs of end organ damage and hypertension, patient was found to be in hypertensive emergency and therefore transferred to the ICU for management of her condition. Plan: Neuro/Psych: AAOx3 Patient appears slightly lucid however as per son this is how patient is when on pain medication Cardiovascular: NSTEMI-heparin drip started, will trend troponins, cardiology on consult Hypertensive emergency-Labetalol drip started. Continue with plavix Pulmonary: Chronic hypercapnic respiratory failure with underlying hypoventilation syndrome Continue with BiPAP qHS Keep head above bed at 45 degrees Maintain o2 sat >90%, c/w NC support as needed Continue with solu-medrol 30 mg q12, xopenex, budesonide, brovana Gastrointestinal: Partial SBO; NG tube to suction Gen surg on consult; mgmt of SBO as per surgical team Keep NPO Continue with pain control regimen Continue with antiemetics Infectious disease: Continue with Rocephin and Flagyl day 2 as per ID Blood cx negative after 24 hours Heme: Hx of DVT/PE; DVT prophylaxis with heparin drip. Hx of anemia; Iron given, Heme/Onc on consult <Lawson Sweet - Last Filed: 04/12/18 18:25> Meds - Medications Medications: Current Medications Arformoterol Tartrate (Brovana) 15 mcg IH [id number] [facility] Last Admin: 04/12/18 08:07 Dose: 15 mcg Budesonide (Pulmicort Respules) 0.5 mg IH [id number] [facility] Last Admin: 04/12/18 08:07 Dose: 0.5 mg Clonidine HCl (Catapres-Tts3 0.3 Mg/24 Hr) 1 patch TD Q7D@1000 [facility] Last Admin: 04/11/18 18:17 Dose: 1 patch Docusate Sodium (Colace) 100 mg PO TID [facility] Last Admin: 04/12/18 17:20 Dose: Not Given Enoxaparin Sodium (Lovenox) 40 mg SC DAILY [facility]; Protocol Last Admin: 04/11/18 12:06 Dose: 40 mg Hydralazine HCl (Apresoline) 50 mg PO TID [facility] Last Admin: 04/12/18 15:07 Dose: Not Given Hydromorphone HCl (Dilaudid) 1 mg IVP Q4H PRN PRN Reason: Pain, moderate (4-7) Last Admin: 04/12/18 17:33 Dose: 1 mg Ceftriaxone Sodium (Rocephin 1 Gram Ivpb) 1 gm in 100 mls @ 100 mls/hr IVPB DAILY [facility]; Protocol Stop: 04/14/18 10:59 Last Admin: 04/12/18 11:10 Dose: 100 mls/hr Labetalol HCl 100 mg/ Sodium (Chloride) 100 mls @ 60 mls/hr IV .Q1H40M PRN; Protocol PRN Reason: TITRATE PER MD ORDER Last Admin: 04/12/18 15:22 Dose: 1 mg/min, 60 mls/hr Heparin Sodium/Sodium Chloride (Heparin 54215 Units/250ml 1/2 Normal Saline) 25,000 units in 250 mls @ 16.346 mls/hr IV .[id number] [facility]; Protocol Last Admin: 04/12/18 14:33 Dose: 12 units/kg/hr, 16.346 mls/hr Sodium Chloride (Sodium Chloride 0.45%) 1,000 mls @ 50 mls/hr IV .Q20H [facility] Insulin Human Regular (Humulin R Low) 0 units SC ACHS [facility]; Protocol Last Admin: 04/12/18 13:11 Dose: 3 unit Isosorbide Mononitrate (Imdur Er) 30 mg PO DAILY [facility] Last Admin: 04/12/18 13:13 Dose: Not Given Levalbuterol HCl (Xopenex) 1.25 mg IH [id number] PRN PRN Reason: Shortness of Breath Methylprednisolone (Solu-Medrol) 30 mg IVP Q12 [facility] Last Admin: 04/12/18 10:54 Dose: 30 mg Metoprolol Tartrate (Lopressor) 50 mg PO BID [facility] Last Admin: 04/12/18 11:09 Dose: 50 mg Ondansetron HCl (Zofran Inj) 4 mg IVP Q6H PRN PRN Reason: Nausea/Vomiting Last Admin: 04/11/18 12:10 Dose: 4 mg Pantoprazole Sodium (Protonix Inj) 40 mg IVP DAILY [facility] Last Admin: 04/12/18 10:54 Dose: 40 mg Results - Vital Signs Recent Vital Signs: Last Vital Signs Temp 99.8 F H 04/12/18 12:00 Pulse 91 H 04/12/18 17:16 Resp 18 04/12/18 17:16 BP 188/74 H 04/12/18 17:16 Pulse Ox 94 L 04/12/18 17:16 - Labs Result Diagrams: 04/12/18 06:50 04/12/18 06:50 Labs: Laboratory Results - last 24 hr 04/10/18 04/11/18 04/12/18 09:00 21:20 06:20 WBC RBC Hgb Hct MCV MCH MCHC RDW Plt Count MPV Gran % Lymph % (Auto) Elbert % (Auto) Eos % (Auto) Baso % (Auto) Gran # Lymph # (Auto) Elbert # (Auto) Eos # (Auto) Baso # (Auto) pCO2 35 pO2 103.0 H HCO3 19.3 L ABG pH 7.35 ABG Total CO2 20.4 L ABG O2 Saturation 99.4 H ABG O2 Content 10.6 L ABG Base Excess -5.7 L ABG Hemoglobin 7.7 L ABG Carboxyhemoglobin 2.3 H POC ABG HHb (Measured) 0.6 ABG Methemoglobin 1.5 ABG O2 Capacity 10.7 L Hgb O2 Saturation 95.6 FiO2 30.0 Sodium Potassium Chloride Carbon Dioxide Anion Gap BUN Creatinine Est GFR ( Amer) Est GFR (Non-Af Amer) POC Glucose (mg/dL) 223 H Random Glucose Calcium Total Bilirubin AST ALT Alkaline Phosphatase Troponin I Total Protein Albumin Globulin Albumin/Globulin Ratio Whole Blood Lead <1 04/12/18 04/12/18 04/12/18 06:50 06:50 08:10 WBC 8.9 RBC 3.37 L Hgb 8.7 L Hct 29.7 L MCV 88.1 MCH 25.8 MCHC 29.3 L RDW 19.2 H Plt Count 273 MPV 10.9 Gran % 82.0 H Lymph % (Auto) 13.6 L Elbert % (Auto) 4.2 Eos % (Auto) 0.0 L Baso % (Auto) 0.2 Gran # 7.31 H Lymph # (Auto) 1.2 Elbert # (Auto) 0.4 Eos # (Auto) 0.0 Baso # (Auto) 0.02 pCO2 pO2 HCO3 ABG pH ABG Total CO2 ABG O2 Saturation ABG O2 Content ABG Base Excess ABG Hemoglobin ABG Carboxyhemoglobin POC ABG HHb (Measured) ABG Methemoglobin ABG O2 Capacity Hgb O2 Saturation FiO2 Sodium 150 H Potassium 5.0 Chloride 116 H Carbon Dioxide 27 Anion Gap 12 BUN 59 H Creatinine 1.8 H Est GFR ( Amer) 34 Est GFR (Non-Af Amer) 28 POC Glucose (mg/dL) 267 H Random Glucose 267 H Calcium 9.2 Total Bilirubin 0.4 AST 37 H ALT 17 Alkaline Phosphatase 160 H Troponin I Total Protein 7.0 Albumin 3.0 Globulin 4.0 Albumin/Globulin Ratio 0.8 L Whole Blood Lead 04/12/18 04/12/18 10:00 11:06 WBC RBC Hgb Hct MCV MCH MCHC RDW Plt Count MPV Gran % Lymph % (Auto) Elbert % (Auto) Eos % (Auto) Baso % (Auto) Gran # Lymph # (Auto) Elbert # (Auto) Eos # (Auto) Baso # (Auto) pCO2 pO2 HCO3 ABG pH ABG Total CO2 ABG O2 Saturation ABG O2 Content ABG Base Excess ABG Hemoglobin ABG Carboxyhemoglobin POC ABG HHb (Measured) ABG Methemoglobin ABG O2 Capacity Hgb O2 Saturation FiO2 Sodium Potassium Chloride Carbon Dioxide Anion Gap BUN Creatinine Est GFR ( Amer) Est GFR (Non-Af Amer) POC Glucose (mg/dL) 254 H Random Glucose Calcium Total Bilirubin AST ALT Alkaline Phosphatase Troponin I 1.30 H* D Total Protein Albumin Globulin Albumin/Globulin Ratio Whole Blood Lead Addendum Addendum: 04/12/18 18:25 ICU Attending Addendum Patient seen and examined. Case reviewed on round with housestaff. Agree with resident note above with the following additions/exceptions: 62F with morbid obesity rectal adenocarcinoma s/p abdominal perinea resection, radiation, chemotherapy and 2 colostomies, CAD, hypertension, congestive heart failure, DVT/PE s/p filter and on eliquis admitted for abd pain and being manage for partial SBO. HTN urgency elevated TNI require IV labetolol to bring down her MAP by 25% in the first 24 hours. She is npo which is the main obstacle to give her home meds. Cont clinidine patch at 0.3 Surg on board for SBO TNI elevated, will start heparin, no plan for surgery over the week as per my discussion with Dr Dutta Rest of care as above Lawson Sweet MD Pulmonary Critical Care and Sleep Medicine Critical Care Time: 35mins
--- NOTE | 2018-04-12 18:33 | CP.PCM.PCO ---
Physician Communication Note - Physician Communication Note Physician Communication Note: Worsening CA/NG drainning/OR now too risky-Rx conservatively now
--- NOTE | 2018-04-12 22:27 | PN ---
DATE: 04/12/2018 PULMONARY CRITICAL CARE PROGRESS NOTE REFERRING PHYSICIAN: Dr. Florian SUBJECTIVE: She just moved to Intensive Care Unit because of tachycardia, tachypnea, uncontrolled blood pressure and intractable abdominal pain. Finally, she has allowed nasogastric tube which is on intermittent suction. No chest pain. Short of breath with minimal exertion. Has abdominal pain, been n.p.o. No leg swelling. OBJECTIVE: GENERAL: [id number] distress secondary to pain. VITAL SIGNS: She is afebrile, presently heart rate is 84, blood pressure 148/59, pulse ox 96% on nasal cannula. HEENT: Moist mucous membrane. Crowded airway. Mallampati score is 4. NECK: Supple. No JVD. LUNGS: Have fair airflow with rhonchi. HEART: S1, S2. ABDOMEN: Soft. Has epigastric area pain. Colostomy bag looks okay. Has some bloody secretion. EXTREMITIES: There is no much edema. NEUROLOGIC: Sleepy, arousable. Follows simple command. MEDICATIONS: She is on hydralazine 50 mg three times a day, Brovana inhaled twice a day, also on clonidine patch every 7 days, Colace 100 mg three times a day, Dilaudid 1 mg every 4 hours p.r.n., she is on IV heparin, insulin coverage, Imdur ER 30 mg daily, she started on labetalol IV drips, metoprolol tartrate 50 mg twice a day which has been on hold because of n.p.o., Lovenox 40 mg once daily which is placed on hold, Protonix 40 mg daily, Pulmicort inhaled twice a day, Rocephin 1 g IV daily, IV fluid half-normal saline 50 mL per hour, Solu-Medrol 30 mg every 12 hours, Xopenex inhaled every 6 hours or p.r.n., Zofran p.r.n. basis. LABORATORY DATA: Shows hemoglobin 8.7, hematocrit 29.7, WBC 8.9, platelet count is 273. PTT is 151. ABG shows pH 7.35, pCO2 of 35, O2 of 103, this is on supplemental oxygen. Sodium 150, potassium 5, chloride 116, bicarbonate 27, BUN 59, creatinine 1.8, glucose 267, calcium is 9.2, AST 37, ALT 17, alk phos is 160. Troponin is 1.3. Albumin is 3. Blood culture has been negative. Chest x-ray done in Intensive Care Unit shows nasogastric tube is in satisfactory position. There is moderate perihilar edema/infiltrate. Has abdominal x-ray done today which shows no visible free air, incomplete assessment because of the body habitus. IMPRESSION AND PLAN: Acute abdomen with hernia; chronic obstructive lung disease, may have hypoventilation syndrome, cannot rule out sleep apnea syndrome; history of deep vein thrombosis; history of pulmonary embolus; coronary artery disease; history of colorectal cancer, requiring surgery, has a colostomy; has a ventral hernia, severe pain, finally allowed the nasogastric tube, being followed by GI and surgery. Agree with moving to Intensive Care Unit. Finally getting labetalol drip and feeling better, heart rate better, blood pressure is better. Continue inhaled bronchodilator. Encourage BiPAP use at nighttime. Careful with CO2 retention. Being followed by Surgical Team, at present not a surgical candidate. Follow up ABG, chest x-ray, CBC, CMP in the morning. Critical care time was 35 minutes. Thank you and we will follow with you. Pamela Ayala MD
[2018-04-13] MEDS ORDERED: Barium Sulfate Susp 2.1% w/v, 2.0% w/w 450 mL Bottle PO ONE (00:36)
[2018-04-13] MEDS: HYDROmorphone 1 mg/ml ISec IVP PRN ×5 (02:43→23:45)
[2018-04-13] MEDS: Heparin25000 units/250ml 1/2NS 25,000 UNITS/250 ML BAG IV SCH ×2 (05:07→23:51)
[2018-04-13] MEDS: Sodium Chloride 0.45% 1,000 ML IV SCH ×2 (05:07→12:14)
[2018-04-13 05:37] LABS: ARTERIAL BLOOD GAS HCO3 25.9 mmol/L (21-28); ARTERIAL BLOOD GAS HEMOGLOBIN 8.2 g/dL (11.7-17.4); ARTERIAL BLOOD GAS O2 CAPACITY 11.4 mL/dl (16-24); ARTERIAL BLOOD GAS O2 CONTENT 11.3 ML/dl (15-23); ARTERIAL BLOOD GAS PCO2 48 mm/Hg (35-45); ARTERIAL BLOOD GAS PH 7.34 (7.35-7.45); ARTERIAL BLOOD GAS TCO2 27.4 mmol.L (22-28)
[2018-04-13 06:12] LABS: BASO # 0.01 K/mm3 (0.0-2.0); BASO % 0.1 % (0.0-3.0); GRAN # 6.41 (1.4-6.5); GRAN % 78.9 % (50.0-68.0); HEMOGLOBIN 8.2 g/dL (12.0-16.0); LYMPH # 1.4 (1.2-3.4); LYMPH % 16.6 % (22.0-35.0); MEAN CELL VOLUME 87.4 fl (80.0-105.0); MEAN CORPUSCULAR HEMOGLOBIN 25.8 pg (25.0-35.0); MEAN CORPUSCULAR HGB CONC 29.5 g/dl (31.0-37.0); MEAN PLATELET VOLUME 10.9 fl (7.0-11.0); MONO # 0.4 (0.1-0.6); MONO % 4.4 % (1.0-6.0); RBC 3.18 10^6/uL (3.5-6.1); RED CELL DISTRIBUTION WIDTH 19.4 % (11.5-14.5); WHITE BLOOD COUNT 8.1 10^3/uL (4.5-11.0)
[2018-04-13 06:50] LABS: ALB/GLOB RATIO 0.8 (1.1-1.8); ALBUMIN 2.8 g/dL (3.0-4.8); CALCIUM 9.2 mg/dL (8.4-10.5); TROPONIN I 1.1 ng/mL
[2018-04-13] MEDS ORDERED: Vancomycin 2 GM in Sodium Chloride 0.9% 500 ML IVPB ONE (07:52)
[2018-04-13] MEDS: Arformoterol 15 mcg/2 ml Inh Sol IH SCH ×2 (08:30→21:26)
[2018-04-13] MEDS: Budesonide 0.5 mg/2 ml Inhal Susp UD IH SCH ×2 (08:31→21:26)
--- NOTE | 2018-04-13 09:03 | CP.PCM.PN ---
Subjective - Date & Time of Evaluation Date of Evaluation: 04/13/18 Time of Evaluation: 07:45 - Subjective Subjective: Patient seen and examined this morning. No acute events over night. Patient pulled NGT in afternoon. Reports feeling better this morning and states abdominal pain has improved. Objective - Vital Signs/Intake and Output Vital Signs (last 24 hours): Temp Pulse Resp BP Pulse Ox 97.5 F L 88 23 168/74 H 96 04/13/18 04:00 04/13/18 06:20 04/13/18 06:20 04/13/18 06:19 04/13/18 06:10 Intake and Output: 04/13/18 04/13/18 06:59 18:59 Intake Total 3002 0 Output Total 400 Balance 2602 0 - Medications Medications: Current Medications Arformoterol Tartrate (Brovana) 15 mcg IH [id number] [facility] Last Admin: 04/12/18 20:24 Dose: 15 mcg Budesonide (Pulmicort Respules) 0.5 mg IH [id number] [facility] Last Admin: 04/12/18 20:24 Dose: 0.5 mg Clonidine HCl (Catapres-Tts3 0.3 Mg/24 Hr) 1 patch TD Q7D@1000 [facility] Last Admin: 04/11/18 18:17 Dose: 1 patch Docusate Sodium (Colace) 100 mg PO TID [facility] Last Admin: 04/12/18 17:20 Dose: Not Given Enoxaparin Sodium (Lovenox) 40 mg SC DAILY [facility]; Protocol Last Admin: 04/11/18 12:06 Dose: 40 mg Hydralazine HCl (Apresoline) 50 mg PO TID [facility] Last Admin: 04/12/18 19:21 Dose: Not Given Hydromorphone HCl (Dilaudid) 1 mg IVP Q4H PRN PRN Reason: Pain, moderate (4-7) Last Admin: 04/13/18 06:36 Dose: 1 mg Heparin Sodium/Sodium Chloride (Heparin 64639 Units/250ml 1/2 Normal Saline) 25,000 units in 250 mls @ 16.346 mls/hr IV .[id number] [facility]; Protocol Last Titration: 04/13/18 07:13 Dose: 0 units/kg/hr, 0 mls/hr Sodium Chloride (Sodium Chloride 0.45%) 1,000 mls @ 50 mls/hr IV .Q20H [facility] Last Admin: 04/13/18 05:07 Dose: 50 mls/hr Labetalol HCl 250 mg/ Sodium (Chloride) 250 mls @ 60 mls/hr IV .Q4H10M PRN; Protocol PRN Reason: TITRATE PER MD ORDER Last Admin: 04/13/18 05:10 Dose: 1 mg/min, 60 mls/hr Cefepime HCl (Maxipime 2gm) 2 gm in 100 mls @ 25 mls/hr IVPB DAILY [facility]; Protocol Stop: 04/18/18 10:01 Vancomycin HCl 2 gm/ Sodium (Chloride) 500 mls @ 170 mls/hr IVPB ONCE ONE; Protocol Stop: 04/13/18 10:48 Insulin Human Regular (Humulin R Low) 0 units SC ACHS [facility]; Protocol Last Admin: 04/12/18 21:08 Dose: 2 unit Isosorbide Mononitrate (Imdur Er) 30 mg PO DAILY [facility] Last Admin: 04/12/18 13:13 Dose: Not Given Levalbuterol HCl (Xopenex) 1.25 mg IH Q1QTABN PRN PRN Reason: Shortness of Breath Methylprednisolone (Solu-Medrol) 30 mg IVP Q12 [facility] Last Admin: 04/12/18 21:08 Dose: 30 mg Metoprolol Tartrate (Lopressor) 50 mg PO BID [facility] Last Admin: 04/12/18 19:22 Dose: Not Given Ondansetron HCl (Zofran Inj) 4 mg IVP Q6H PRN PRN Reason: Nausea/Vomiting Last Admin: 04/11/18 12:10 Dose: 4 mg Pantoprazole Sodium (Protonix Inj) 40 mg IVP DAILY [facility] Last Admin: 04/12/18 10:54 Dose: 40 mg - Labs Labs: 04/13/18 05:30 04/13/18 05:30 PT 12.4 SECONDS (9.4-12.5) 04/08/18 22:30 INR 1.09 04/08/18 22:30 APTT 93.9 Seconds (25.1-36.5) H 04/13/18 05:30 - Constitutional Appears: No Acute Distress - Head Exam Head Exam: NORMOCEPHALIC - Eye Exam Eye Exam: EOMI, Normal appearance - ENT Exam ENT Exam: Mucous Membranes Moist - Respiratory Exam Respiratory Exam: NORMAL BREATHING PATTERN - Cardiovascular Exam Cardiovascular Exam: +S1, +S2 - GI/Abdominal Exam GI & Abdominal Exam: Soft - Neurological Exam Neurological Exam: Alert, Awake, Oriented x3 - Psychiatric Exam Psychiatric exam: Normal Mood - Skin Skin Exam: Dry, Intact, Warm Assessment and Plan - Assessment and Plan (Free Text) Assessment: 62F with abdominal pain, improving Plan: -NPO -F/u PO CT Abd & Pel -IVF -ABX per ID -troponin trending down 1.53-->1.10 -NGT insertion if vomiting -Further recommendations per Dr. Tra Herrmann PGY3
--- NOTE | 2018-04-13 09:41 | CARD ---
APPROVED REPORT Date of service: 04/12/2018 EKG Measurement Heart [id number] <Conclusion> Normal sinus rhythm Normal ECG
--- NOTE | 2018-04-13 09:47 | CP.CCUPN ---
<Darby Candelario - Last Filed: 04/13/18 09:43> CCU Subjective - Physician Review Subjective (Free Text): CRITICAL CARE PROGRESS NOTE FOR DR. CHRISSY Candelario PGY-1 Pt seen and examined at bedside this am. She had pulled out her NG tube yesterday. She is scheduled to undergo CT scan of abdomen today. She is awake AxO. She is complaining of diffuse severe abdominal pain after drinking po contrast for CT scan. She reports fatigue and nausea/vomiting. CCU Objective - Vital Signs / Intake & Output Vital Signs (Last 4 hours): Vital Signs Temp Pulse Resp BP Pulse Ox 04/13/18 09:01 89 17 178/69 H 92 L 04/13/18 09:00 84 16 90 L 04/13/18 08:50 89 16 86 L 04/13/18 08:40 83 14 99 04/13/18 08:30 89 10 L 112/57 L 93 L 04/13/18 08:20 87 17 96 04/13/18 08:10 84 13 97 04/13/18 08:00 87 14 133/60 95 04/13/18 07:50 79 13 87 L 04/13/18 07:40 77 13 86 L 04/13/18 07:31 79 13 140/55 L 87 L 04/13/18 07:30 97.5 F L 78 14 88 L 04/13/18 07:20 80 15 89 L 04/13/18 07:10 82 19 92 L 04/13/18 07:00 82 15 166/67 H 90 L 04/13/18 06:50 82 15 93 L 04/13/18 06:40 80 12 93 L 04/13/18 06:31 84 21 158/56 H 93 L 04/13/18 06:30 82 12 91 L 04/13/18 06:20 88 23 04/13/18 06:19 84 14 168/74 H 04/13/18 06:10 86 21 96 04/13/18 06:01 85 14 190/85 H 97 04/13/18 06:00 85 14 04/13/18 05:50 83 15 95 Intake and Output (Last 8hrs): Intake & Output 04/12/18 04/13/18 04/13/18 22:59 06:59 14:59 Intake Total 604 2938 0 Output Total 0 400 Balance 604 2538 0 Weight 138.799 kg Intake: IV 604 2738 0 Left Forearm 1762 RCWP 540 540 Oral 0 Other 200 Output: Urine 0 400 Urine, Voided 0 400 Emesis 0 Other: # Bowel Movements 0 - Physical Exam Head: Positive for: Atraumatic, Normocephalic Pupils: Positive for: PERRL Extroacular Muscles: Positive for: EOMI Conjunctiva: Positive for: Normal Mouth: Positive for: Moist Mucous Membranes Neck: Positive for: Normal Range of Motion Respiratory/Chest: Positive for: Clear to Auscultation, Good Air Exchange. Negative for: Respiratory Distress, Accessory Muscle Use Cardiovascular: Positive for: Regular Rate and Rhythm, Normal S1, S2. Negative for: Murmurs Abdomen: Positive for: Tenderness (Diffuse mid/lower abdominal tenderness). Negative for: Distention, Peritoneal Signs, Other (No erythema noted around colostomy) Back: Positive for: Normal Inspection Upper Extremity: Positive for: Normal Inspection. Negative for: Cyanosis, Edema Lower Extremity: Positive for: Normal Inspection. Negative for: Edema Neurological: Positive for: GCS=15, CN II-XII Intact, Speech Normal Skin: Positive for: Warm, Dry, Normal Color. Negative for: Rashes Psychiatric: Positive for: Alert, Oriented x 3, Normal Insight, Normal Concentration - Medications Active Medications: Active Medications Generic Name Dose Route Start Last Admin Trade Name Freq PRN Reason Stop Dose Admin Arformoterol Tartrate 15 mcg 04/10/18 08:00 04/13/18 08:30 Brovana IH 15 mcg [id number] JR Administration Budesonide 0.5 mg 04/10/18 08:00 04/13/18 08:31 Pulmicort Respules IH 0.5 mg [id number] JR Administration Clonidine HCl 1 patch 04/11/18 16:15 04/11/18 18:17 Catapres-Tts3 0.3 Mg/24 Hr TD 1 patch Q7D@1000 JR Administration Docusate Sodium 100 mg 04/11/18 14:00 04/12/18 17:20 Colace PO Not Given TID JR Hydralazine HCl 50 mg 04/12/18 10:00 04/12/18 19:21 Apresoline PO Not Given TID JR Hydromorphone HCl 1 mg 04/10/18 17:12 04/13/18 06:36 Dilaudid IVP 1 mg Q4H PRN Administration Pain, moderate (4-7) Heparin Sodium/Sodium Chloride 25,000 units in 250 mls @ 16.346 mls/hr 04/12/18 14:15 04/13/18 07:13 Heparin 99012 Units/250ml 1/2 Normal Saline IV 0 units/kg/hr .[id number] JR 0 mls/hr Titration Protocol 12 UNITS/KG/HR Sodium Chloride 1,000 mls @ 50 mls/hr 04/12/18 15:06 04/13/18 05:07 Sodium Chloride 0.45% IV 50 mls/hr .Q20H JR Administration Labetalol HCl 250 mg/ Sodium 250 mls @ 60 mls/hr 04/12/18 20:57 04/13/18 05:10 Chloride IV 1 mg/min .Q4H10M PRN 60 mls/hr TITRATE PER MD ORDER Administration Protocol 1 MG/MIN Cefepime HCl 2 gm in 100 mls @ 25 mls/hr 04/13/18 10:00 Maxipime 2gm IVPB 04/18/18 10:01 DAILY JR Protocol Vancomycin HCl 2 gm/ Sodium 500 mls @ 170 mls/hr 04/13/18 07:52 Chloride IVPB 04/13/18 10:48 ONCE ONE Protocol Insulin Human Regular 0 units 04/09/18 16:30 04/12/18 21:08 Humulin R Low SC 2 unit ACHS JR Administration Protocol Isosorbide Mononitrate 30 mg 04/12/18 10:00 04/12/18 13:13 Imdur Er PO Not Given DAILY JR Levalbuterol HCl 1.25 mg 04/11/18 14:03 Xopenex IH [id number] PRN Shortness of Breath Methylprednisolone 30 mg 04/11/18 10:00 04/12/18 21:08 Solu-Medrol IVP 30 mg Q12 JR Administration Metoprolol Tartrate 50 mg 04/12/18 10:00 04/12/18 19:22 Lopressor PO Not Given BID JR Ondansetron HCl 4 mg 04/10/18 16:21 04/11/18 12:10 Zofran Inj IVP 4 mg Q6H PRN Administration Nausea/Vomiting Pantoprazole Sodium 40 mg 04/10/18 10:00 04/12/18 10:54 Protonix Inj IVP 40 mg DAILY JR Administration - Patient Studies Lab Studies: Microbiology Studies 04/11/18 10:30 Blood Culture - Preliminary Blood-Venous NO GROWTH AFTER 24 HOURS 04/11/18 10:00 Blood Culture - Preliminary Blood-Venous NO GROWTH AFTER 24 HOURS Lab Studies 04/13/18 04/13/18 04/13/18 Range/Units 05:32 05:30 05:30 WBC (4.5-11.0) 10^3/uL RBC (3.5-6.1) 10^6/uL Hgb (12.0-16.0) g/dL Hct (36.0-48.0) % MCV (80.0-105.0) fl MCH (25.0-35.0) pg MCHC (31.0-37.0) g/dl RDW (11.5-14.5) % Plt Count (120.0-450.0) 10^3/uL MPV (7.0-11.0) fl Gran % (50.0-68.0) % Lymph % (Auto) (22.0-35.0) % [place] % (Auto) (1.0-6.0) % Eos % (Auto) (1.5-5.0) % Baso % (Auto) (0.0-3.0) % Gran # (1.4-6.5) Lymph # (Auto) (1.2-3.4) [place] # (Auto) (0.1-0.6) Eos # (Auto) (0.0-0.7) Baso # (Auto) (0.0-2.0) K/mm3 APTT 93.9 H (25.1-36.5) Seconds pCO2 48 H (35-45) mm/Hg pO2 92.0 (80-100) mm/Hg HCO3 25.9 (21-28) mmol/L ABG pH 7.34 L (7.35-7.45) ABG Total CO2 27.4 (22-28) mmol.L ABG O2 Saturation 99.0 H (95-98) % ABG O2 Content 11.3 L (15-23) ML/dl ABG Base Excess -0.1 (-2.0-3.0) mmol/L ABG Hemoglobin 8.2 L (11.7-17.4) g/dL ABG Carboxyhemoglobin 1.8 H (0.5-1.5) % POC ABG HHb (Measured) 1.0 (0-5) % ABG Methemoglobin 0.5 (0.0-3.0) % ABG O2 Capacity 11.4 L (16-24) mL/dl Hgb O2 Saturation 96.6 (95.0-98.0) % FiO2 30.0 % Sodium 150 H (132-148) mmol/L Potassium 5.0 (3.6-5.0) mmol/L Chloride 120 H (98-107) mmol/L Carbon Dioxide 26 (21-33) mmol/L Anion Gap 9 L (10-20) BUN 60 H (7-21) mg/dL Creatinine 1.8 H (0.7-1.2) mg/dl Est GFR ( Amer) 34 Est GFR (Non-Af Amer) 28 POC Glucose (mg/dL) (65-110) mg/dL Random Glucose 231 H (70-110) mg/dL Calcium 9.2 (8.4-10.5) mg/dL Total Bilirubin 0.4 (0.2-1.3) mg/dL AST 31 (14-36) U/L ALT 22 (7-56) U/L Alkaline Phosphatase 148 H (38-126) U/L Troponin I 1.10 H* D ng/mL Total Protein 6.4 (5.8-8.3) g/dL Albumin 2.8 L (3.0-4.8) g/dL Globulin 3.6 gm/dL Albumin/Globulin Ratio 0.8 L (1.1-1.8) 04/13/18 04/12/18 04/12/18 Range/Units 05:30 21:21 21:21 WBC 8.1 (4.5-11.0) 10^3/uL RBC 3.18 L (3.5-6.1) 10^6/uL Hgb 8.2 L (12.0-16.0) g/dL Hct 27.8 L (36.0-48.0) % MCV 87.4 (80.0-105.0) fl MCH 25.8 (25.0-35.0) pg MCHC 29.5 L (31.0-37.0) g/dl RDW 19.4 H (11.5-14.5) % Plt Count 214 (120.0-450.0) 10^3/uL MPV 10.9 (7.0-11.0) fl Gran % 78.9 H (50.0-68.0) % Lymph % (Auto) 16.6 L (22.0-35.0) % [place] % (Auto) 4.4 (1.0-6.0) % Eos % (Auto) 0.0 L (1.5-5.0) % Baso % (Auto) 0.1 (0.0-3.0) % Gran # 6.41 (1.4-6.5) Lymph # (Auto) 1.4 (1.2-3.4) [place] # (Auto) 0.4 (0.1-0.6) Eos # (Auto) 0.0 (0.0-0.7) Baso # (Auto) 0.01 (0.0-2.0) K/mm3 APTT 48.6 H (25.1-36.5) Seconds pCO2 (35-45) mm/Hg pO2 (80-100) mm/Hg HCO3 (21-28) mmol/L ABG pH (7.35-7.45) ABG Total CO2 (22-28) mmol.L ABG O2 Saturation (95-98) % ABG O2 Content (15-23) ML/dl ABG Base Excess (-2.0-3.0) mmol/L ABG Hemoglobin (11.7-17.4) g/dL ABG Carboxyhemoglobin (0.5-1.5) % POC ABG HHb (Measured) (0-5) % ABG Methemoglobin (0.0-3.0) % ABG O2 Capacity (16-24) mL/dl Hgb O2 Saturation (95.0-98.0) % FiO2 % Sodium (132-148) mmol/L Potassium (3.6-5.0) mmol/L Chloride (98-107) mmol/L Carbon Dioxide (21-33) mmol/L Anion Gap (10-20) BUN (7-21) mg/dL Creatinine (0.7-1.2) mg/dl Est GFR ( Amer) Est GFR (Non-Af Amer) POC Glucose (mg/dL) (65-110) mg/dL Random Glucose (70-110) mg/dL Calcium (8.4-10.5) mg/dL Total Bilirubin (0.2-1.3) mg/dL AST (14-36) U/L ALT (7-56) U/L Alkaline Phosphatase (38-126) U/L Troponin I 1.53 H* ng/mL Total Protein (5.8-8.3) g/dL Albumin (3.0-4.8) g/dL Globulin gm/dL Albumin/Globulin Ratio (1.1-1.8) 04/12/18 04/12/18 04/12/18 Range/Units 21:04 20:12 11:06 WBC (4.5-11.0) 10^3/uL RBC (3.5-6.1) 10^6/uL Hgb (12.0-16.0) g/dL Hct (36.0-48.0) % MCV (80.0-105.0) fl MCH (25.0-35.0) pg MCHC (31.0-37.0) g/dl RDW (11.5-14.5) % Plt Count (120.0-450.0) 10^3/uL MPV (7.0-11.0) fl Gran % (50.0-68.0) % Lymph % (Auto) (22.0-35.0) % [place] % (Auto) (1.0-6.0) % Eos % (Auto) (1.5-5.0) % Baso % (Auto) (0.0-3.0) % Gran # (1.4-6.5) Lymph # (Auto) (1.2-3.4) [place] # (Auto) (0.1-0.6) Eos # (Auto) (0.0-0.7) Baso # (Auto) (0.0-2.0) K/mm3 APTT 151.0 H* (25.1-36.5) Seconds pCO2 (35-45) mm/Hg pO2 (80-100) mm/Hg HCO3 (21-28) mmol/L ABG pH (7.35-7.45) ABG Total CO2 (22-28) mmol.L ABG O2 Saturation (95-98) % ABG O2 Content (15-23) ML/dl ABG Base Excess (-2.0-3.0) mmol/L ABG Hemoglobin (11.7-17.4) g/dL ABG Carboxyhemoglobin (0.5-1.5) % POC ABG HHb (Measured) (0-5) % ABG Methemoglobin (0.0-3.0) % ABG O2 Capacity (16-24) mL/dl Hgb O2 Saturation (95.0-98.0) % FiO2 % Sodium (132-148) mmol/L Potassium (3.6-5.0) mmol/L Chloride (98-107) mmol/L Carbon Dioxide (21-33) mmol/L Anion Gap (10-20) BUN (7-21) mg/dL Creatinine (0.7-1.2) mg/dl Est GFR ( Amer) Est GFR (Non-Af Amer) POC Glucose (mg/dL) 230 H 254 H (65-110) mg/dL Random Glucose (70-110) mg/dL Calcium (8.4-10.5) mg/dL Total Bilirubin (0.2-1.3) mg/dL AST (14-36) U/L ALT (7-56) U/L Alkaline Phosphatase (38-126) U/L Troponin I ng/mL Total Protein (5.8-8.3) g/dL Albumin (3.0-4.8) g/dL Globulin gm/dL Albumin/Globulin Ratio (1.1-1.8) 04/12/18 04/12/18 Range/Units 10:00 08:10 WBC (4.5-11.0) 10^3/uL RBC (3.5-6.1) 10^6/uL Hgb (12.0-16.0) g/dL Hct (36.0-48.0) % MCV (80.0-105.0) fl MCH (25.0-35.0) pg MCHC (31.0-37.0) g/dl RDW (11.5-14.5) % Plt Count (120.0-450.0) 10^3/uL MPV (7.0-11.0) fl Gran % (50.0-68.0) % Lymph % (Auto) (22.0-35.0) % [place] % (Auto) (1.0-6.0) % Eos % (Auto) (1.5-5.0) % Baso % (Auto) (0.0-3.0) % Gran # (1.4-6.5) Lymph # (Auto) (1.2-3.4) [place] # (Auto) (0.1-0.6) Eos # (Auto) (0.0-0.7) Baso # (Auto) (0.0-2.0) K/mm3 APTT (25.1-36.5) Seconds pCO2 (35-45) mm/Hg pO2 (80-100) mm/Hg HCO3 (21-28) mmol/L ABG pH (7.35-7.45) ABG Total CO2 (22-28) mmol.L ABG O2 Saturation (95-98) % ABG O2 Content (15-23) ML/dl ABG Base Excess (-2.0-3.0) mmol/L ABG Hemoglobin (11.7-17.4) g/dL ABG Carboxyhemoglobin (0.5-1.5) % POC ABG HHb (Measured) (0-5) % ABG Methemoglobin (0.0-3.0) % ABG O2 Capacity (16-24) mL/dl Hgb O2 Saturation (95.0-98.0) % FiO2 % Sodium (132-148) mmol/L Potassium (3.6-5.0) mmol/L Chloride (98-107) mmol/L Carbon Dioxide (21-33) mmol/L Anion Gap (10-20) BUN (7-21) mg/dL Creatinine (0.7-1.2) mg/dl Est GFR ( Amer) Est GFR (Non-Af Amer) POC Glucose (mg/dL) 267 H (65-110) mg/dL Random Glucose (70-110) mg/dL Calcium (8.4-10.5) mg/dL Total Bilirubin (0.2-1.3) mg/dL AST (14-36) U/L ALT (7-56) U/L Alkaline Phosphatase (38-126) U/L Troponin I 1.30 H* D ng/mL Total Protein (5.8-8.3) g/dL Albumin (3.0-4.8) g/dL Globulin gm/dL Albumin/Globulin Ratio (1.1-1.8) Laboratory Results - last 24 hr 04/12/18 04/12/18 04/12/18 08:10 10:00 11:06 WBC RBC Hgb Hct MCV MCH MCHC RDW Plt Count MPV Gran % Lymph % (Auto) [place] % (Auto) Eos % (Auto) Baso % (Auto) Gran # Lymph # (Auto) [place] # (Auto) Eos # (Auto) Baso # (Auto) APTT pCO2 pO2 HCO3 ABG pH ABG Total CO2 ABG O2 Saturation ABG O2 Content ABG Base Excess ABG Hemoglobin ABG Carboxyhemoglobin POC ABG HHb (Measured) ABG Methemoglobin ABG O2 Capacity Hgb O2 Saturation FiO2 Sodium Potassium Chloride Carbon Dioxide Anion Gap BUN Creatinine Est GFR ( Amer) Est GFR (Non-Af Amer) POC Glucose (mg/dL) 267 H 254 H Random Glucose Calcium Total Bilirubin AST ALT Alkaline Phosphatase Troponin I 1.30 H* D Total Protein Albumin Globulin Albumin/Globulin Ratio 04/12/18 04/12/18 04/12/18 20:12 21:04 21:21 WBC RBC Hgb Hct MCV MCH MCHC RDW Plt Count MPV Gran % Lymph % (Auto) [place] % (Auto) Eos % (Auto) Baso % (Auto) Gran # Lymph # (Auto) [place] # (Auto) Eos # (Auto) Baso # (Auto) APTT 151.0 H* pCO2 pO2 HCO3 ABG pH ABG Total CO2 ABG O2 Saturation ABG O2 Content ABG Base Excess ABG Hemoglobin ABG Carboxyhemoglobin POC ABG HHb (Measured) ABG Methemoglobin ABG O2 Capacity Hgb O2 Saturation FiO2 Sodium Potassium Chloride Carbon Dioxide Anion Gap BUN Creatinine Est GFR ( Amer) Est GFR (Non-Af Amer) POC Glucose (mg/dL) 230 H Random Glucose Calcium Total Bilirubin AST ALT Alkaline Phosphatase Troponin I 1.53 H* Total Protein Albumin Globulin Albumin/Globulin Ratio 04/12/18 04/13/18 04/13/18 21:21 05:30 05:30 WBC 8.1 RBC 3.18 L Hgb 8.2 L Hct 27.8 L MCV 87.4 MCH 25.8 MCHC 29.5 L RDW 19.4 H Plt Count 214 MPV 10.9 Gran % 78.9 H Lymph % (Auto) 16.6 L [place] % (Auto) 4.4 Eos % (Auto) 0.0 L Baso % (Auto) 0.1 Gran # 6.41 Lymph # (Auto) 1.4 [place] # (Auto) 0.4 Eos # (Auto) 0.0 Baso # (Auto) 0.01 APTT 48.6 H pCO2 pO2 HCO3 ABG pH ABG Total CO2 ABG O2 Saturation ABG O2 Content ABG Base Excess ABG Hemoglobin ABG Carboxyhemoglobin POC ABG HHb (Measured) ABG Methemoglobin ABG O2 Capacity Hgb O2 Saturation FiO2 Sodium 150 H Potassium 5.0 Chloride 120 H Carbon Dioxide 26 Anion Gap 9 L BUN 60 H Creatinine 1.8 H Est GFR ( Amer) 34 Est GFR (Non-Af Amer) 28 POC Glucose (mg/dL) Random Glucose 231 H Calcium 9.2 Total Bilirubin 0.4 AST 31 ALT 22 Alkaline Phosphatase 148 H Troponin I 1.10 H* D Total Protein 6.4 Albumin 2.8 L Globulin 3.6 Albumin/Globulin Ratio 0.8 L 04/13/18 04/13/18 05:30 05:32 WBC RBC Hgb Hct MCV MCH MCHC RDW Plt Count MPV Gran % Lymph % (Auto) [place] % (Auto) Eos % (Auto) Baso % (Auto) Gran # Lymph # (Auto) [place] # (Auto) Eos # (Auto) Baso # (Auto) APTT 93.9 H pCO2 48 H pO2 92.0 HCO3 25.9 ABG pH 7.34 L ABG Total CO2 27.4 ABG O2 Saturation 99.0 H ABG O2 Content 11.3 L ABG Base Excess -0.1 ABG Hemoglobin 8.2 L ABG Carboxyhemoglobin 1.8 H POC ABG HHb (Measured) 1.0 ABG Methemoglobin 0.5 ABG O2 Capacity 11.4 L Hgb O2 Saturation 96.6 FiO2 30.0 Sodium Potassium Chloride Carbon Dioxide Anion Gap BUN Creatinine Est GFR ( Amer) Est GFR (Non-Af Amer) POC Glucose (mg/dL) Random Glucose Calcium Total Bilirubin AST ALT Alkaline Phosphatase Troponin I Total Protein Albumin Globulin Albumin/Globulin Ratio Fingerstick Blood Sugar Results: 230 Review of Systems - Review of Systems Review of Systems: per [facility] Critical Care Progress Note - Nutrition Nutrition: Nutrition Category Date Time Status NPO Diet [DIET] Diets 04/11/18 Lunch Ordered Assessment/Plan - Assessment and Plan (Free Text) Assessment: 62F with morbid obesity rectal adenocarcinoma s/p abdominal perinea resection, radiation, chemotherapy and 2 colostomies, CAD, hypertension, congestive heart failure, 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 hydralazine 50mg bid, imdur 30mg qd, metoprolol 50mg bid Continue with plavix NS@50mls/hr per nephro recs Pulmonary: Chronic hypercapnic respiratory failure with underlying obesity hypoventilation syndrome Continue with BiPAP qHS Keep head above bed at 45 degrees Maintain o2 sat >90%, c/w NC support as needed Continue with solu-medrol 30 mg q12, xopenex, budesonide, brovana, pulmicort Gastrointestinal: Partial SBO; NG tube to suction Gen surg on consult; mgmt of SBO as per surgical team Keep NPO Continue with pain control regimen. Dilaudid 0.5mg q2h prn pain, 1mg q4h severe pain. Continue with antiemetics Colace po-per surg recs ID: Continue with Rocephin and Flagyl day 3 as per ID Blood cx negative after 24 hours Heme: Hx of DVT/PE; DVT prophylaxis with heparin drip. Hx of anemia; Iron given, Heme/Onc on consult DVT/GI: Hep/Ptx IVP Case seen, examined and discussed with attending physician, Dr. Sweet <Lawson Sweet - Last Filed: 04/13/18 11:54> CCU Objective - Vital Signs / Intake & Output Vital Signs (Last 4 hours): Vital Signs Pulse Resp BP Pulse Ox 04/13/18 10:49 81 190/73 H 04/13/18 10:02 85 175/66 H 04/13/18 09:59 91 H 180/70 H 04/13/18 09:01 89 17 178/69 H 92 L 04/13/18 09:00 84 16 90 L 04/13/18 08:50 89 16 86 L 04/13/18 08:40 83 14 99 04/13/18 08:30 89 10 L 112/57 L 93 L 04/13/18 08:20 87 17 96 04/13/18 08:10 84 13 97 04/13/18 08:00 87 14 133/60 95 04/13/18 07:50 79 13 87 L Intake and Output (Last 8hrs): Intake & Output 04/12/18 04/13/18 04/13/18 22:59 06:59 14:59 Intake Total 604 2938 250 Output Total 0 400 Balance 604 2538 250 Weight 138.799 kg Intake: IV 604 2738 250 Left Forearm 1762 RCWP 540 540 Oral 0 Other 200 Output: Urine 0 400 Urine, Voided 0 400 Emesis 0 Other: # Bowel Movements 0 - Medications Active Medications: Active Medications Generic Name Dose Route Start Last Admin Trade Name Freq PRN Reason Stop Dose Admin Amlodipine Besylate 10 mg 04/13/18 10:30 Norvasc PO DAILY JR Arformoterol Tartrate 15 mcg 04/10/18 08:00 04/13/18 08:30 Brovana IH 15 mcg [id number] JR Administration Budesonide 0.5 mg 04/10/18 08:00 04/13/18 08:31 Pulmicort Respules IH 0.5 mg [id number] JR Administration Clonidine HCl 1 patch 04/11/18 16:15 04/11/18 18:17 Catapres-Tts3 0.3 Mg/24 Hr TD 1 patch Q7D@1000 JR Administration Docusate Sodium 100 mg 04/11/18 14:00 04/13/18 10:03 Colace PO 100 mg TID JR Administration Hydralazine HCl 50 mg 04/12/18 10:00 04/13/18 10:02 Apresoline PO 50 mg TID JR Administration Hydromorphone HCl 0.5 mg 04/13/18 09:52 04/13/18 10:22 Dilaudid IVP 0.5 mg Q2H PRN Administration Pain, Mild (1-3) Hydromorphone HCl 1 mg 04/13/18 09:53 Dilaudid IVP Q4H PRN Pain, severe (8-10) Heparin Sodium/Sodium Chloride 25,000 units in 250 mls @ 16.346 mls/hr 04/12/18 14:15 04/13/18 07:13 Heparin 03163 Units/250ml 1/2 Normal Saline IV 0 units/kg/hr .[id number] JR 0 mls/hr Titration Protocol 12 UNITS/KG/HR Sodium Chloride 1,000 mls @ 50 mls/hr 04/12/18 15:06 04/13/18 05:07 Sodium Chloride 0.45% IV 50 mls/hr .Q20H JR Administration Labetalol HCl 250 mg/ Sodium 250 mls @ 60 mls/hr 04/12/18 20:57 04/13/18 10:49 Chloride IV 1 mg/min .Q4H10M PRN 60 mls/hr TITRATE PER MD ORDER Administration Protocol 1 MG/MIN Cefepime HCl 2 gm in 100 mls @ 25 mls/hr 04/13/18 10:00 04/13/18 10:50 Maxipime 2gm IVPB 04/18/18 10:01 25 mls/hr DAILY JR Administration Protocol Insulin Human Regular 0 units 04/09/18 16:30 04/13/18 10:05 Humulin R Low SC Not Given ACHS [facility] Protocol Isosorbide Mononitrate 30 mg 04/12/18 10:00 04/13/18 10:04 Imdur Er PO 30 mg DAILY JR Administration Levalbuterol HCl 1.25 mg 04/11/18 14:03 Xopenex IH [id number] PRN Shortness of Breath Methylprednisolone 30 mg 04/11/18 10:00 04/13/18 09:58 Solu-Medrol IVP 30 mg Q12 JR Administration Metoprolol Tartrate 100 mg 04/13/18 18:00 Lopressor PO BID JR Ondansetron HCl 4 mg 04/10/18 16:21 04/11/18 12:10 Zofran Inj IVP 4 mg Q6H PRN Administration Nausea/Vomiting Pantoprazole Sodium 40 mg 04/10/18 10:00 04/13/18 09:58 Protonix Inj IVP 40 mg DAILY JR Administration - Patient Studies Lab Studies: Microbiology Studies 04/11/18 10:30 Blood Culture - Preliminary Blood-Venous NO GROWTH AFTER 48 HOURS 04/11/18 10:00 Blood Culture - Preliminary Blood-Venous NO GROWTH AFTER 48 HOURS Lab Studies 04/13/18 04/13/18 04/13/18 Range/Units 05:32 05:30 05:30 WBC (4.5-11.0) 10^3/uL RBC (3.5-6.1) 10^6/uL Hgb (12.0-16.0) g/dL Hct (36.0-48.0) % MCV (80.0-105.0) fl MCH (25.0-35.0) pg MCHC (31.0-37.0) g/dl RDW (11.5-14.5) % Plt Count (120.0-450.0) 10^3/uL MPV (7.0-11.0) fl Gran % (50.0-68.0) % Lymph % (Auto) (22.0-35.0) % [place] % (Auto) (1.0-6.0) % Eos % (Auto) (1.5-5.0) % Baso % (Auto) (0.0-3.0) % Gran # (1.4-6.5) Lymph # (Auto) (1.2-3.4) [place] # (Auto) (0.1-0.6) Eos # (Auto) (0.0-0.7) Baso # (Auto) (0.0-2.0) K/mm3 APTT 93.9 H (25.1-36.5) Seconds pCO2 48 H (35-45) mm/Hg pO2 92.0 (80-100) mm/Hg HCO3 25.9 (21-28) mmol/L ABG pH 7.34 L (7.35-7.45) ABG Total CO2 27.4 (22-28) mmol.L ABG O2 Saturation 99.0 H (95-98) % ABG O2 Content 11.3 L (15-23) ML/dl ABG Base Excess -0.1 (-2.0-3.0) mmol/L ABG Hemoglobin 8.2 L (11.7-17.4) g/dL ABG Carboxyhemoglobin 1.8 H (0.5-1.5) % POC ABG HHb (Measured) 1.0 (0-5) % ABG Methemoglobin 0.5 (0.0-3.0) % ABG O2 Capacity 11.4 L (16-24) mL/dl Hgb O2 Saturation 96.6 (95.0-98.0) % FiO2 30.0 % Sodium 150 H (132-148) mmol/L Potassium 5.0 (3.6-5.0) mmol/L Chloride 120 H (98-107) mmol/L Carbon Dioxide 26 (21-33) mmol/L Anion Gap 9 L (10-20) BUN 60 H (7-21) mg/dL Creatinine 1.8 H (0.7-1.2) mg/dl Est GFR ( Amer) 34 Est GFR (Non-Af Amer) 28 POC Glucose (mg/dL) (65-110) mg/dL Random Glucose 231 H (70-110) mg/dL Calcium 9.2 (8.4-10.5) mg/dL Total Bilirubin 0.4 (0.2-1.3) mg/dL AST 31 (14-36) U/L ALT 22 (7-56) U/L Alkaline Phosphatase 148 H (38-126) U/L Troponin I 1.10 H* D ng/mL Total Protein 6.4 (5.8-8.3) g/dL Albumin 2.8 L (3.0-4.8) g/dL Globulin 3.6 gm/dL Albumin/Globulin Ratio 0.8 L (1.1-1.8) 04/13/18 04/12/18 04/12/18 Range/Units 05:30 21:21 21:21 WBC 8.1 (4.5-11.0) 10^3/uL RBC 3.18 L (3.5-6.1) 10^6/uL Hgb 8.2 L (12.0-16.0) g/dL Hct 27.8 L (36.0-48.0) % MCV 87.4 (80.0-105.0) fl MCH 25.8 (25.0-35.0) pg MCHC 29.5 L (31.0-37.0) g/dl RDW 19.4 H (11.5-14.5) % Plt Count 214 (120.0-450.0) 10^3/uL MPV 10.9 (7.0-11.0) fl Gran % 78.9 H (50.0-68.0) % Lymph % (Auto) 16.6 L (22.0-35.0) % [place] % (Auto) 4.4 (1.0-6.0) % Eos % (Auto) 0.0 L (1.5-5.0) % Baso % (Auto) 0.1 (0.0-3.0) % Gran # 6.41 (1.4-6.5) Lymph # (Auto) 1.4 (1.2-3.4) [place] # (Auto) 0.4 (0.1-0.6) Eos # (Auto) 0.0 (0.0-0.7) Baso # (Auto) 0.01 (0.0-2.0) K/mm3 APTT 48.6 H (25.1-36.5) Seconds pCO2 (35-45) mm/Hg pO2 (80-100) mm/Hg HCO3 (21-28) mmol/L ABG pH (7.35-7.45) ABG Total CO2 (22-28) mmol.L ABG O2 Saturation (95-98) % ABG O2 Content (15-23) ML/dl ABG Base Excess (-2.0-3.0) mmol/L ABG Hemoglobin (11.7-17.4) g/dL ABG Carboxyhemoglobin (0.5-1.5) % POC ABG HHb (Measured) (0-5) % ABG Methemoglobin (0.0-3.0) % ABG O2 Capacity (16-24) mL/dl Hgb O2 Saturation (95.0-98.0) % FiO2 % Sodium (132-148) mmol/L Potassium (3.6-5.0) mmol/L Chloride (98-107) mmol/L Carbon Dioxide (21-33) mmol/L Anion Gap (10-20) BUN (7-21) mg/dL Creatinine (0.7-1.2) mg/dl Est GFR ( Amer) Est GFR (Non-Af Amer) POC Glucose (mg/dL) (65-110) mg/dL Random Glucose (70-110) mg/dL Calcium (8.4-10.5) mg/dL Total Bilirubin (0.2-1.3) mg/dL AST (14-36) U/L ALT (7-56) U/L Alkaline Phosphatase (38-126) U/L Troponin I 1.53 H* ng/mL Total Protein (5.8-8.3) g/dL Albumin (3.0-4.8) g/dL Globulin gm/dL Albumin/Globulin Ratio (1.1-1.8) 04/12/18 04/12/18 04/12/18 Range/Units 21:04 20:12 10:00 WBC (4.5-11.0) 10^3/uL RBC (3.5-6.1) 10^6/uL Hgb (12.0-16.0) g/dL Hct (36.0-48.0) % MCV (80.0-105.0) fl MCH (25.0-35.0) pg MCHC (31.0-37.0) g/dl RDW (11.5-14.5) % Plt Count (120.0-450.0) 10^3/uL MPV (7.0-11.0) fl Gran % (50.0-68.0) % Lymph % (Auto) (22.0-35.0) % [place] % (Auto) (1.0-6.0) % Eos % (Auto) (1.5-5.0) % Baso % (Auto) (0.0-3.0) % Gran # (1.4-6.5) Lymph # (Auto) (1.2-3.4) [place] # (Auto) (0.1-0.6) Eos # (Auto) (0.0-0.7) Baso # (Auto) (0.0-2.0) K/mm3 APTT 151.0 H* (25.1-36.5) Seconds pCO2 (35-45) mm/Hg pO2 (80-100) mm/Hg HCO3 (21-28) mmol/L ABG pH (7.35-7.45) ABG Total CO2 (22-28) mmol.L ABG O2 Saturation (95-98) % ABG O2 Content (15-23) ML/dl ABG Base Excess (-2.0-3.0) mmol/L ABG Hemoglobin (11.7-17.4) g/dL ABG Carboxyhemoglobin (0.5-1.5) % POC ABG HHb (Measured) (0-5) % ABG Methemoglobin (0.0-3.0) % ABG O2 Capacity (16-24) mL/dl Hgb O2 Saturation (95.0-98.0) % FiO2 % Sodium (132-148) mmol/L Potassium (3.6-5.0) mmol/L Chloride (98-107) mmol/L Carbon Dioxide (21-33) mmol/L Anion Gap (10-20) BUN (7-21) mg/dL Creatinine (0.7-1.2) mg/dl Est GFR ( Amer) Est GFR (Non-Af Amer) POC Glucose (mg/dL) 230 H (65-110) mg/dL Random Glucose (70-110) mg/dL Calcium (8.4-10.5) mg/dL Total Bilirubin (0.2-1.3) mg/dL AST (14-36) U/L ALT (7-56) U/L Alkaline Phosphatase (38-126) U/L Troponin I 1.30 H* D ng/mL Total Protein (5.8-8.3) g/dL Albumin (3.0-4.8) g/dL Globulin gm/dL Albumin/Globulin Ratio (1.1-1.8) Laboratory Results - last 24 hr 04/12/18 04/12/18 04/12/18 10:00 20:12 21:04 WBC RBC Hgb Hct MCV MCH MCHC RDW Plt Count MPV Gran % Lymph % (Auto) [place] % (Auto) Eos % (Auto) Baso % (Auto) Gran # Lymph # (Auto) [place] # (Auto) Eos # (Auto) Baso # (Auto) APTT 151.0 H* pCO2 pO2 HCO3 ABG pH ABG Total CO2 ABG O2 Saturation ABG O2 Content ABG Base Excess ABG Hemoglobin ABG Carboxyhemoglobin POC ABG HHb (Measured) ABG Methemoglobin ABG O2 Capacity Hgb O2 Saturation FiO2 Sodium Potassium Chloride Carbon Dioxide Anion Gap BUN Creatinine Est GFR ( Amer) Est GFR (Non-Af Amer) POC Glucose (mg/dL) 230 H Random Glucose Calcium Total Bilirubin AST ALT Alkaline Phosphatase Troponin I 1.30 H* D Total Protein Albumin Globulin Albumin/Globulin Ratio 04/12/18 04/12/18 04/13/18 21:21 21:21 05:30 WBC 8.1 RBC 3.18 L Hgb 8.2 L Hct 27.8 L MCV 87.4 MCH 25.8 MCHC 29.5 L RDW 19.4 H Plt Count 214 MPV 10.9 Gran % 78.9 H Lymph % (Auto) 16.6 L [place] % (Auto) 4.4 Eos % (Auto) 0.0 L Baso % (Auto) 0.1 Gran # 6.41 Lymph # (Auto) 1.4 [place] # (Auto) 0.4 Eos # (Auto) 0.0 Baso # (Auto) 0.01 APTT 48.6 H pCO2 pO2 HCO3 ABG pH ABG Total CO2 ABG O2 Saturation ABG O2 Content ABG Base Excess ABG Hemoglobin ABG Carboxyhemoglobin POC ABG HHb (Measured) ABG Methemoglobin ABG O2 Capacity Hgb O2 Saturation FiO2 Sodium Potassium Chloride Carbon Dioxide Anion Gap BUN Creatinine Est GFR ( Amer) Est GFR (Non-Af Amer) POC Glucose (mg/dL) Random Glucose Calcium Total Bilirubin AST ALT Alkaline Phosphatase Troponin I 1.53 H* Total Protein Albumin Globulin Albumin/Globulin Ratio 04/13/18 04/13/18 04/13/18 05:30 05:30 05:32 WBC RBC Hgb Hct MCV MCH MCHC RDW Plt Count MPV Gran % Lymph % (Auto) [place] % (Auto) Eos % (Auto) Baso % (Auto) Gran # Lymph # (Auto) [place] # (Auto) Eos # (Auto) Baso # (Auto) APTT 93.9 H pCO2 48 H pO2 92.0 HCO3 25.9 ABG pH 7.34 L ABG Total CO2 27.4 ABG O2 Saturation 99.0 H ABG O2 Content 11.3 L ABG Base Excess -0.1 ABG Hemoglobin 8.2 L ABG Carboxyhemoglobin 1.8 H POC ABG HHb (Measured) 1.0 ABG Methemoglobin 0.5 ABG O2 Capacity 11.4 L Hgb O2 Saturation 96.6 FiO2 30.0 Sodium 150 H Potassium 5.0 Chloride 120 H Carbon Dioxide 26 Anion Gap 9 L BUN 60 H Creatinine 1.8 H Est GFR ( Amer) 34 Est GFR (Non-Af Amer) 28 POC Glucose (mg/dL) Random Glucose 231 H Calcium 9.2 Total Bilirubin 0.4 AST 31 ALT 22 Alkaline Phosphatase 148 H Troponin I 1.10 H* D Total Protein 6.4 Albumin 2.8 L Globulin 3.6 Albumin/Globulin Ratio 0.8 L Critical Care Progress Note - Nutrition Nutrition: Nutrition Category Date Time Status NPO Diet [DIET] Diets 04/11/18 Lunch Ordered NPO past midnight [NPO Diet] [DIET] Diets 04/13/18 Dinner Ordered Addendum Addendum: 04/13/18 11:44 ICU Attending Addendum Patient seen and examined. Case reviewed on round with housestaff. Agree with resident note above with the following additions/exceptions: 62F with morbid obesity rectal adenocarcinoma s/p abdominal perinea resection, radiation, chemotherapy and 2 colostomies, CAD, hypertension, congestive heart failure, DVT/PE s/p filter and on eliquis admitted for abd pain and being manage for partial SBO. HTN urgency elevated TNI require IV labetolol Can keep her at a normal BP goal 120/60 now Cardio managing HTN meds however will be NPO tonight Planned for OR in the morning (if patient agreeable to surgery) NPO at midnight and stop heparin as per surg NSTEMI likely exacerbated by elevated BP and tachycardia increasing the demand on the heart Cardio on board, f/u recs CXR shows BL patchy infiltrates with upper lobe predominance. This findings were seen on CT scan on 02/12/2018. 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 As an outpatient she needs pulmonary follow-up and workup for ILD. She would benefit from bronchoscopy with biopsy and BAL as well. I do not think she has a PNA at the moment. SUMMER - she should be on CPAP QHS. She may also have obesity hypoventilation syndrome for which CPAP is indicated as well. I am not sure what her home setting are but will try and find out. If she does go to surgery, it is imperative that anesthesiology is aware about her SUMMER and possible OHS so she can be placed on CPAP post-op extubation. Na and Cl rising, would stop 1/2NS and switch to D5W SHELBI is improving, nephro on board Abx as per ID Dilaudid PRN for pain PPI for GI ppx Rest of care as above Lawson Sweet MD Pulmonary Critical Care and Sleep Medicine Critical Care Time: 33mins
[2018-04-13] MEDS: MethylPREDNISolone 40 mg Vial IVP SCH ×2 (09:58→23:45)
[2018-04-13] MEDS: Insulin Reg-LOW-Coverage SC SCH ×4 (10:05→22:13)
[2018-04-13] MEDS: HYDROmorphone 0.5 mg/0.5 ml ISec IVP PRN ×3 (10:22→20:33)
--- NOTE | 2018-04-13 10:27 | CP.PCM.PN ---
Subjective - Date & Time of Evaluation Date of Evaluation: 04/13/18 Time of Evaluation: 10:26 - Subjective Subjective: Nephrology Consultation Note: Assessment: critical SBO Acute Kidney Injury (N17.9) likely pre-renal state HTN urgency, hyperkalemia left adrenal adenoma, Rt renal hyperdense cyst chronic hypercapnic respi failure Diabetic chronic Kidney Disease (E11.22) Hypertensive Chronic Kidney Disease (I12.9) Chronic Kidney Disease (N18.3) Stage 3 with 2.4 gm proteinuria (R80.9) likely due to DM/HTN/Obesity Anemia Vit D def morbid obesity, CAD s/p stent, COPD/SUMMER, rectal ca s/p colostomy Plan No acute need for renal replacement therapy at this time. . HTN uncontrolled, transferred to ICU, started on labetalol drip. resume norvasc 10 mg/day. lopressor 100 bid, also on hydralazine and imdur. pt encouraged to take PO meds so that Iv drip can be tapered off. Monitor Input/Output, daily weights and renal function with basic metabolic panel continue with IVF as 0.45% saline @ 50 ml/hr while pt NPO pulmonary and surgery following defer management of anemia to heme/onc. due to hx of malignancy, will defer use of ESAs. PRBC as needed Adrenal adenoma work up with plasma renin/aldosterone, plasma metanephrine NEGATIVE. outpt 1 mg dexa suppression test repeat renal sono in 6 months to assess her Rt renal cyst Dose meds/antibiotics for reduced GFR. Avoid fleets enema/magnesium based laxatives. Avoid nephrotoxins/NSAIDs/ iodinated contrast (unless needed emergently) Glycemic control Further work up/management as per primary team Thanks for allowing me to participate in care of your patient. Will follow patient with you. Please call if any Qs. had d/w team Dr Dae Dawn Office: [phone] Chief Complaint; abdomen pain Reason for consult: Acute Kidney Injury, CKD 3 HPI: Pt is a 62 F with hx of diabetes Mellitus (15 years), hypertension (years), CKD 3 with baseline cr 1.2-1.3 with AKIs, morbid obesity, CAD s/p stent, COPD/SUMMER on CPAP, rectal ca s/p colostomy presented with complaints of abdomen pain with nausea/vomiting. renal consult for CKD and SHELBI management. pt has no urine complaints. found to have partial SBO Denies OTC/herbal meds or NSAIDs No recent iodinated contrast exposure. No obvious episodes of low BP. ROS: improved pain abdomen but has nausea/vomiting. no SOB. denies urine complaints. reports decreased oral intake. BP fluctuating but mostly high Physical Examination: General Appearance: uncomfortable, co-operative . morbidly obese. ill appearing Vitals reviewed and noted as below Head; Atraumatic, normocephalic ENT: normal oral mucosa/dry. no rash/ulcer EYES: Pupils are equal, round and reactive to light accommodation. Eye muscles and extraocular movement intact. Sclera is anicteric. Neck; supple no lymphadenopathy, no thyromegaly or bruit Lungs: Normal respiratory rate/effort. Breath sounds bilateral equal, diminished at bases Heart: normal rate. s1s2 normal. No rub or gallop. Extremities: 2+ edema. No varicose veins Neurological: Patient is lethargic but oriented to person, place and time. No focal deficit. Strength bilateral appropriate and equal Skin: Warm and dry. Normal turgor. No rash. Palpitation: Normal elasticity for age Abdomen: Abdomen is soft. Bowel sounds +. There is no abdominal tenderness, no guarding/rigidity no organomegaly. has colostomy and ventral hernia Psych: normal insight and normal affect/mood MSK: no joint tenderness or swelling. Digits and nails normal, no deformity : kidney or bladder not palpable Labs/imaging reviewed. Past medical history, past surgical history, family history, social history, allergy reviewed and noted as below Family hx: no hx of CKD. Rest non-contributory PET CT 04/2017: neg CT abdomen: left adrenal adenoma 1.9 cm Rt kidney 2.6 cm hyperdense cyst UA 100 protein, neg for blood renin and roma low, metanehrine WNL PTH 133 Vit D 27 ANCA neg, K/L ratio WNL Objective - Vital Signs/Intake and Output Vital Signs (last 24 hours): Temp Pulse Resp BP Pulse Ox 97.5 F L 85 17 175/66 H 92 L 04/13/18 07:30 04/13/18 10:02 04/13/18 09:01 04/13/18 10:02 04/13/18 09:01 Intake and Output: 04/13/18 04/13/18 06:59 18:59 Intake Total 3002 0 Output Total 400 Balance 2602 0 - Medications Medications: Current Medications Arformoterol Tartrate (Brovana) 15 mcg IH [id number] [facility] Last Admin: 04/13/18 08:30 Dose: 15 mcg Budesonide (Pulmicort Respules) 0.5 mg IH [id number] [facility] Last Admin: 04/13/18 08:31 Dose: 0.5 mg Clonidine HCl (Catapres-Tts3 0.3 Mg/24 Hr) 1 patch TD Q7D@1000 [facility] Last Admin: 04/11/18 18:17 Dose: 1 patch Docusate Sodium (Colace) 100 mg PO TID [facility] Last Admin: 04/13/18 10:03 Dose: 100 mg Hydralazine HCl (Apresoline) 50 mg PO TID [facility] Last Admin: 04/13/18 10:02 Dose: 50 mg Hydromorphone HCl (Dilaudid) 0.5 mg IVP Q2H PRN PRN Reason: Pain, Mild (1-3) Last Admin: 04/13/18 10:22 Dose: 0.5 mg Hydromorphone HCl (Dilaudid) 1 mg IVP Q4H PRN PRN Reason: Pain, severe (8-10) Heparin Sodium/Sodium Chloride (Heparin 26602 Units/250ml 1/2 Normal Saline) 25,000 units in 250 mls @ 16.346 mls/hr IV .[id number] [facility]; Protocol Last Titration: 04/13/18 07:13 Dose: 0 units/kg/hr, 0 mls/hr Sodium Chloride (Sodium Chloride 0.45%) 1,000 mls @ 50 mls/hr IV .Q20H [facility] Last Admin: 04/13/18 05:07 Dose: 50 mls/hr Labetalol HCl 250 mg/ Sodium (Chloride) 250 mls @ 60 mls/hr IV .Q4H10M PRN; Protocol PRN Reason: TITRATE PER MD ORDER Last Admin: 04/13/18 05:10 Dose: 1 mg/min, 60 mls/hr Cefepime HCl (Maxipime 2gm) 2 gm in 100 mls @ 25 mls/hr IVPB DAILY [facility]; Protocol Stop: 04/18/18 10:01 Vancomycin HCl 2 gm/ Sodium (Chloride) 500 mls @ 170 mls/hr IVPB ONCE ONE; Protocol Stop: 04/13/18 10:48 Last Admin: 04/13/18 10:11 Dose: 170 mls/hr Insulin Human Regular (Humulin R Low) 0 units SC ACHS [facility]; Protocol Last Admin: 04/13/18 10:05 Dose: Not Given Isosorbide Mononitrate (Imdur Er) 30 mg PO DAILY [facility] Last Admin: 04/13/18 10:04 Dose: 30 mg Levalbuterol HCl (Xopenex) 1.25 mg IH [id number] PRN PRN Reason: Shortness of Breath Methylprednisolone (Solu-Medrol) 30 mg IVP Q12 [facility] Last Admin: 04/13/18 09:58 Dose: 30 mg Ondansetron HCl (Zofran Inj) 4 mg IVP Q6H PRN PRN Reason: Nausea/Vomiting Last Admin: 04/11/18 12:10 Dose: 4 mg Pantoprazole Sodium (Protonix Inj) 40 mg IVP DAILY [facility] Last Admin: 04/13/18 09:58 Dose: 40 mg - Labs Labs: 04/13/18 05:30 04/13/18 05:30 PT 12.4 SECONDS (9.4-12.5) 04/08/18 22:30 INR 1.09 04/08/18 22:30 APTT 93.9 Seconds (25.1-36.5) H 04/13/18 05:30
[2018-04-13] MEDS: Cefepime IV 2 gm in NS 2 GM/100 ML BAG IVPB SCH (10:50)
--- NOTE | 2018-04-13 11:16 | PN ---
DATE: 04/12/2018 SUBJECTIVE: Pedro Guevara is 62-year-old female on telemetry. She is in complain of abdominal pain, nausea, just patient early put in NG tube because of not tolerating diet and nausea. PHYSICAL EXAMINATION VITAL SIGNS: Temperature is 99, heart rate 76, blood pressure 173/75, and respirations 13. HEAD AND NECK: Normal. No JVD. CHEST: Clear. Bilateral diminished breath sounds. CARDIAC: First sound and second sound normal. ABDOMEN: Large, obese with colostomy bag and mild general tenderness more in the midline. EXTREMITIES: No edema. NEUROLOGIC: Normal. LABORATORY DATA: Shows white count 8.9, hemoglobin 8.7, hematocrit 29.7 and platelets 273. Chemistry: Sodium 145, potassium 5.2, chloride 115, bicarb 28, BUN 67, creatinine 2.1, blood sugar 194. Liver function test is normal except alk phos. IMPRESSION AND PLAN: 1. Small bowel obstructions. The patient finally agree about putting an nasogastric tube today by Dr. Dutta, she refused it a day before that and in spite of discussing benefits of it, so now the patient is on continuous suction for now then will be intermittent. But at this time she is stable. 2. Hypertension, still uncontrolled. Discussed with roller printing supervisor and with the other consultants. The patient will benefit from Intensive Care monitoring and therapy. For her, we will monitor with comorbid illnesses. 3. The patient has chronic obstructive pulmonary disease, obstructive sleep apnea, morbid obesity, on bilevel positive airway pressure. We will start already steroids intravenously b.i.d. to help her breathing and we will continue monitor her conditions. The patient has last blood gas was PCO2 of 39, PO2 103, bicarb 219 and pH 7.35. We will continue current inhaled and intravenous bronchodilators and we will monitor this with Dr. Ayala also. 4. Hypertension, morbid obesity, hypercholesterolemia, insulin-dependent diabetes, rectal cancer with colostomy was done more than 10 years ago. We will continue current therapy. Infectious Disease consultation has been asked. She is on Rocephin, Flagyl, which has been changed to cefepime and Maxipime 2 g intravenously. 5. For hypertension, uncontrolled. Labetalol 20 mg was given intravenously one dose and to be followed up by Dr. Dawn for monitoring of blood pressure. Discussed with intensivists and other specialists. Continue current medications. We will follow up clinically. A phone call was put in for her son answer machine. Elroy Florian MD
--- NOTE | 2018-04-13 11:17 | CP.PCM.PN ---
Subjective - Date & Time of Evaluation Date of Evaluation: 04/13/18 Time of Evaluation: 09:05 - Subjective Subjective: No fevers but still having abdominal pain, no nausea currently, no chest pain or SOB at rest. Objective - Vital Signs/Intake and Output Vital Signs (last 24 hours): Temp Pulse Resp BP Pulse Ox 98.8 F 123 H 18 203/101 H 94 L 04/12/18 06:00 04/12/18 11:09 04/12/18 06:00 04/12/18 11:09 04/12/18 06:00 Intake and Output: 04/12/18 04/12/18 06:59 18:59 Intake Total 1850 Output Total 0 Balance 1850 - Medications Medications: Current Medications Arformoterol Tartrate (Brovana) 15 mcg IH [id number] [facility] Last Admin: 04/12/18 08:07 Dose: 15 mcg Budesonide (Pulmicort Respules) 0.5 mg IH [id number] [facility] Last Admin: 04/12/18 08:07 Dose: 0.5 mg Clonidine HCl (Catapres-Tts3 0.3 Mg/24 Hr) 1 patch TD Q7D@1000 [facility] Last Admin: 04/11/18 18:17 Dose: 1 patch Docusate Sodium (Colace) 100 mg PO TID [facility] Last Admin: 04/12/18 11:05 Dose: 100 mg Enoxaparin Sodium (Lovenox) 40 mg SC DAILY [facility]; Protocol Last Admin: 04/11/18 12:06 Dose: 40 mg Hydralazine HCl (Apresoline) 10 mg IVP Q4 JR Hydralazine HCl (Apresoline) 50 mg PO TID [facility] Last Admin: 04/12/18 10:56 Dose: 50 mg Hydromorphone HCl (Dilaudid) 1 mg IVP Q4H PRN PRN Reason: Pain, moderate (4-7) Last Admin: 04/12/18 11:10 Dose: 1 mg Metronidazole (Flagyl) 500 mg in 100 mls @ 100 mls/hr IVPB Q8 [facility]; Protocol Last Admin: 04/12/18 05:34 Dose: 100 mls/hr Ceftriaxone Sodium (Rocephin 1 Gram Ivpb) 1 gm in 100 mls @ 100 mls/hr IVPB DAILY [facility]; Protocol Stop: 04/14/18 10:59 Last Admin: 04/12/18 11:10 Dose: 100 mls/hr Sodium Chloride (Sodium Chloride 0.45%) 1,000 mls @ 75 mls/hr IV .[id number] [facility] Last Admin: 04/12/18 11:27 Dose: 75 mls/hr Insulin Human Regular (Humulin R Low) 0 units SC ACHS [facility]; Protocol Last Admin: 04/12/18 11:11 Dose: 3 unit Isosorbide Mononitrate (Imdur Er) 30 mg PO DAILY [facility] Labetalol HCl (Trandate) 20 mg IV Q6 [facility] Levalbuterol HCl (Xopenex) 1.25 mg IH [id number] PRN PRN Reason: Shortness of Breath Methylprednisolone (Solu-Medrol) 30 mg IVP Q12 [facility] Last Admin: 04/12/18 10:54 Dose: 30 mg Metoprolol Tartrate (Lopressor) 50 mg PO BID [facility] Last Admin: 04/12/18 11:09 Dose: 50 mg Ondansetron HCl (Zofran Inj) 4 mg IVP Q6H PRN PRN Reason: Nausea/Vomiting Last Admin: 04/11/18 12:10 Dose: 4 mg Pantoprazole Sodium (Protonix Inj) 40 mg IVP DAILY [facility] Last Admin: 04/12/18 10:54 Dose: 40 mg - Labs Labs: 04/12/18 06:50 04/12/18 06:50 PT 12.4 SECONDS (9.4-12.5) 04/08/18 22:30 INR 1.09 04/08/18 22:30 APTT 29.8 Seconds (25.1-36.5) 04/08/18 22:30 - Constitutional Appears: Chronically Ill - Head Exam Head Exam: NORMAL INSPECTION - Neck Exam Neck Exam: absent: Meningismus - Respiratory Exam Respiratory Exam: Decreased Breath Sounds Additional comments: right anterior chest wall port in place - Cardiovascular Exam Cardiovascular Exam: +S1, +S2 - GI/Abdominal Exam GI & Abdominal Exam: Soft, Tenderness (diffuse). absent: Distended, Guarding, Rigid, Rebound Assessment and Plan - Assessment and Plan (Free Text) Plan: Assessment consider small bowel obstruction in this patient with ventral wall hernia R/O acute coronary syndrome COPD history of VRE UTI history of severe sepsis secondary to left medial thigh abscess, growing Proteus, S/P incision and drainage DM HTN CAD Unresectable rectal cancer S/P chemotherapy and radiation therapy S/P colostomy S/P Port-a-cath placement morbid obesity with BMI 50 obstructive sleep apnea history of pulmonary embolism S/P IVC filter placement Plan will change Rocephin to Cefepime, give intermittent Vancomycin and continue Flagyl day 3 - will keep while patient is NPO; blood cx are negative discussed with Surgery - will probably need surgery but patient needs to be medically stabilized first prior to any procedure will continue to monitor clinically
--- NOTE | 2018-04-13 12:52 | PN ---
DATE: 04/13/[address] Guerrero. SUBJECTIVE: The patient was transferred to the ICU. The patient was evaluated by Dr. Mckeon and was recommended to undergo surgery. The patient is experiencing abdominal pain, but denies any retrosternal chest pain. She is mildly short of breath. OBJECTIVE: VITAL SIGNS: Blood pressure 190/73, heart rate 81, temperature 97.5, respirations 15. HEENT: Pale conjunctivae. CHEST: Diminished breath sounds at the bases. HEART: S1, S2 regular. EXTREMITIES: 1+ pitting edema. LABORATORY DATA: Hemoglobin and hematocrit 8.2 and 27.8, white count and platelet count are within normal limit. Today's SMA-7, sodium 150, potassium 5.0, chloride 120, CO2 26, glucose 231, BUN 60, creatinine 1.8. Troponin is 1.1. DIAGNOSTIC DATA: Echocardiogram study in August of this year revealed mild concentric LVH with normal ejection fraction and grade II abnormal relaxation pattern. EKG revealed sinus rhythm at a rate of 91. Most recent venous Doppler from February of this year, no evidence of DVT. ASSESSMENT: 1. Small bowel obstruction. 2. Tna-AL-bzmhkmvrg myocardial infarction. 3. Acute renal insufficiency. 4. History of pulmonary embolus in the past. 5. Systemic hypertension. The patient to continue current clonidine patch at 0.3 mg weekly. Continue intravenous heparin. Continue IV labetalol and oral Lopressor. Continue IV Maxipime at 2 g daily. The patient can undergo surgery from cardiac point of view with a moderate to high cardiac risk; however, surgery is unavoidable. Close preoperative blood pressure needs monitoring with postoperative ICU monitoring. Gildardo Barry MD
--- NOTE | 2018-04-13 17:00 | CT ---
Date of service: 04/13/2018 PROCEDURE: CT Abdomen and Pelvis with contrast HISTORY: obstipation, obstruction COMPARISON: 04/08/2018. TECHNIQUE: CT scan of the abdomen and pelvis was performed without administration of intravenous contrast. Oral contrast was administered. Coronal and sagittal reformatted images were obtained. Contrast dose: Radiation dose: Total exam DLP = 1692.58 mGy-cm. This CT exam was performed using one or more of the following dose reduction techniques: Automated exposure control, adjustment of the mA and/or kV according to patient size, and/or use of iterative reconstruction technique. FINDINGS: LOWER THORAX: There is subsegmental atelectasis in the lingula. There are small effusions. There is mild cardiomegaly and atherosclerotic coronary artery calcifications. LIVER: Normal in size. No gross lesion or ductal dilatation. GALLBLADDER AND BILE DUCTS: Well distended. No calcified gallstones, wall thickening or pericholecystic fluid. PANCREAS: Normal in size. No gross lesion or ductal dilatation. SPLEEN: Normal in size. ADRENALS: The right adrenal gland is normal. There is a 1.9 x 2.6 cm adenoma in the left adrenal gland KIDNEYS AND URETERS: Bilateral renal cortical atrophy. No hydronephrosis. There is nonspecific perinephric fat stranding. VASCULATURE: No aortic aneurysm. Aortic atherosclerotic calcifications are present. There is an infrarenal IVC filter. BOWEL: There is redemonstration of a large midline umbilical hernia containing dilated small bowel loops with multiple air-fluid levels and herniation of the gastric antrum and pylorus. There is interval progression of mid small bowel dilatation with decompressed small bowel loops within the hernia sac. The distal small bowel loops are decompressed and the terminal ileum and ileocecal junction are normal. There is moderate amount of stool in the ascending colon and the decompressed transverse colon is herniated into the umbilical hernia. APPENDIX: Normal appendix. PERITONEUM: No free fluid. No free air. LYMPH NODES: No enlarged lymph nodes. BLADDER: Well distended and normal in appearance. REPRODUCTIVE: The uterus is surgically absent. BONES: No acute fracture. Within normal limits for the patient's age. OTHER FINDINGS: There is a left lower quadrant colostomy with large parastomal fat containing hernia. There is stranding of subcutaneous fat overlying the hernia. IMPRESSION: Findings are most compatible with incarcerated umbilical hernia with high-grade acute small bowel obstruction. The hernia sac also contains the gastric antrum and pylorus and decompressed transverse colon.
--- NOTE | 2018-04-13 17:49 | CP.PCM.PN ---
Subjective - Date & Time of Evaluation Date of Evaluation: 04/13/18 Time of Evaluation: 17:35 - Subjective Subjective: Spoke with patient's son, Rajat, at bedside. He is aware of patient's increased risk of mortality due to mutiple medical comorbidities. Both patient and son have agreed to move forward with surgical intervention. All questions and conc erns were addressed. Patient is schedule for OR tomorrow at 9AM. Objective - Vital Signs/Intake and Output Vital Signs (last 24 hours): Temp Pulse Resp BP Pulse Ox 98.9 F 82 15 178/81 H 96 04/13/18 16:47 04/13/18 17:21 04/13/18 17:20 04/13/18 17:21 04/13/18 17:20 Intake and Output: 04/13/18 04/13/18 06:59 18:59 Intake Total 3002 550 Output Total 400 Balance 2602 550 - Medications Medications: Current Medications Amlodipine Besylate (Norvasc) 10 mg PO DAILY [facility] Last Admin: 04/13/18 12:10 Dose: 10 mg Arformoterol Tartrate (Brovana) 15 mcg IH [id number] [facility] Last Admin: 04/13/18 08:30 Dose: 15 mcg Budesonide (Pulmicort Respules) 0.5 mg IH [id number] [facility] Last Admin: 04/13/18 08:31 Dose: 0.5 mg Clonidine HCl (Catapres-Tts3 0.3 Mg/24 Hr) 1 patch TD Q7D@1000 [facility] Last Admin: 04/11/18 18:17 Dose: 1 patch Docusate Sodium (Colace) 100 mg PO TID [facility] Last Admin: 04/13/18 17:21 Dose: 100 mg Hydralazine HCl (Apresoline) 50 mg PO TID [facility] Last Admin: 04/13/18 17:20 Dose: 50 mg Hydromorphone HCl (Dilaudid) 0.5 mg IVP Q2H PRN PRN Reason: Pain, Mild (1-3) Last Admin: 04/13/18 15:07 Dose: 0.5 mg Hydromorphone HCl (Dilaudid) 1 mg IVP Q4H PRN PRN Reason: Pain, severe (8-10) Last Admin: 04/13/18 12:07 Dose: 1 mg Heparin Sodium/Sodium Chloride (Heparin 71807 Units/250ml 1/2 Normal Saline) 25,000 units in 250 mls @ 16.346 mls/hr IV .[id number] [facility]; Protocol Last Titration: 04/13/18 15:30 Dose: 0 units/kg/hr, 0 mls/hr Sodium Chloride (Sodium Chloride 0.45%) 1,000 mls @ 50 mls/hr IV .Q20H [facility] Last Admin: 04/13/18 12:14 Dose: 50 mls/hr Labetalol HCl 250 mg/ Sodium (Chloride) 250 mls @ 60 mls/hr IV .Q4H10M PRN; Protocol PRN Reason: TITRATE PER MD ORDER Last Admin: 04/13/18 17:41 Dose: 1.5 mg/min, 90 mls/hr Cefepime HCl (Maxipime 2gm) 2 gm in 100 mls @ 25 mls/hr IVPB DAILY [facility]; Protocol Stop: 04/18/18 10:01 Last Admin: 04/13/18 10:50 Dose: 25 mls/hr Insulin Human Regular (Humulin R Low) 0 units SC ACHS [facility]; Protocol Last Admin: 04/13/18 16:48 Dose: 2 unit Isosorbide Mononitrate (Imdur Er) 30 mg PO DAILY [facility] Last Admin: 04/13/18 10:04 Dose: 30 mg Levalbuterol HCl (Xopenex) 1.25 mg IH [id number] PRN PRN Reason: Shortness of Breath Methylprednisolone (Solu-Medrol) 30 mg IVP Q12 [facility] Last Admin: 04/13/18 09:58 Dose: 30 mg Metoprolol Tartrate (Lopressor) 100 mg PO BID [facility] Last Admin: 04/13/18 17:21 Dose: 100 mg Ondansetron HCl (Zofran Inj) 4 mg IVP Q6H PRN PRN Reason: Nausea/Vomiting Last Admin: 04/11/18 12:10 Dose: 4 mg Pantoprazole Sodium (Protonix Inj) 40 mg IVP DAILY [facility] Last Admin: 04/13/18 09:58 Dose: 40 mg - Labs Labs: 04/13/18 05:30 04/13/18 05:30 PT 12.4 SECONDS (9.4-12.5) 04/08/18 22:30 INR 1.09 04/08/18 22:30 APTT 74.0 Seconds (25.1-36.5) H 04/13/18 15:42
--- NOTE | 2018-04-13 18:46 | PN ---
DATE: 04/13/2018 This is [facility]'s hospital visit in the intensive care unit. For Dr. Faye: SUBJECTIVE: The patient is a 62-year-old female, who follows with Dr. 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 At present, she seems lying awake in the intensive care unit with recommendations for surgical evaluation for possible surgery with anemic indices and recent hypertensive crisis for which she was transferred to the intensive care unit. Working diagnosis that of a possible small bowel obstruction with a non-incarcerated anterior abdominal wall hernia. The patient also now has elevated troponin values suggesting a subendocardial myocardial infarction. At present, she is in no acute distress with healthcare network consultant's recommendations being implemented with recommendations for transfusion of 1 unit packed red blood cells if okay with her computer operations analyst consult, Dr. Dawn. PHYSICAL EXAMINATION: VITAL SIGNS: Temperature 97.5, pulse 81, respirations 17, blood pressure 187/77 with a pulse ox of 92%. HEENT: Possible copeland face. Tongue is moist. NECK: Supple. HEART: Regular rate. LUNGS: Decreased breath sounds bilateral. ABDOMEN: Obese with minimal generalized vague tenderness to gentle palpation. EXTREMITIES: +1 edema. NEUROLOGIC: Somnolent, but arousable. SKIN: Warm and dry. LABORATORY DATA: The patient's labs were done; white blood cell count of 8.1; hemoglobin 8.2, down from 8.7 yesterday and 8.9 prior testing; hematocrit was 27.8; platelet count of 214,000. She is on heparin with a PTT of 93.9. Her most recent blood gas showed PO2 of 92, PCO2 of 48, pH of 7.3. Her Chem panel showed a troponin of 1.1, down from 1.53 yesterday. Sodium of 150, chloride of 120 with normal saline having been changed as per her computer operations analyst. Blood sugar 231. The patient had chest x-ray done yesterday which was read as nasogastric tube in satisfactory condition which has been pulled out. Flat plate of her abdomen done yesterday showed no visible air, incomplete assessment with dilated proximal small bowel loops. The patient's EKG done yesterday was read as normal sinus rhythm, normal EKG. ASSESSMENT: The assessment for this patient is that of acute abdomen with questionable small bowel obstruction, morbid obesity, rectal carcinoma, two colonostomies, anemia of chronic disease, atherosclerotic cardiovascular disease status post subendocardial myocardial infarction, hypertension with crisis, acute renal failure with BUN of 60, creatinine of 1.8, chronic obstructive pulmonary disease, history of deep vein thrombosis and pulmonary embolism on anticoagulation. PLAN: 1. For this patient is as per the rn surgical's recommendations. If okay with Dr. Dawn, renal healthcare network consultant, we will transfuse 1 unit of packed red blood cells with 3 additional units on hold for her anemic indices with continuation of present medical regimen as per healthcare network consultant's recommendations. 2. This is a complex patient with a comprehensive medically necessary and appropriate visit carried out in excess of 40 minutes with the patient's care discussed with army manager, Dr. Sweet, his nurse, and the patient. Questions were answered to her satisfaction. Zuhair Herrera MD
--- NOTE | 2018-04-13 22:15 | PN ---
DATE: 04/13/2018 PULMONARY PROGRESS NOTE REFERRING PHYSICIAN: Dr. Florian SUBJECTIVE: She is lying in the bed head at 45 degrees, on supplemental oxygen. Son is at bedside. Dr. Florian is bedside. Also surgical team is present. The patient being scheduled for tomorrow for possible surgery. No more nasogastric tube, intubation pulled out, still has a severe epigastric pain, short of breath with exertion. No chest pain. No leg pain or leg swelling. OBJECTIVE: GENERAL: Nmhy-ci-melfsbua distress secondary to pain. VITAL SIGNS: Afebrile, heart rate is 80 at present, blood pressure 167/68, pulse ox is 93% on nasal cannula. HEENT: Moist mucous membrane. Crowded airway. Mallampati score is 4. NECK: Supple. No JVD. LUNGS: Have a fair airflow with rhonchi. HEART: S1 and S2. ABDOMEN: Obese. Colostomy bag looks okay. Epigastric area tenderness on palpation. EXTREMITIES: There is not much edema. NEUROLOGIC: Sedated but arousable. Follows simple command. MEDICATIONS: She is on hydralazine 50 mg three times a day, Brovana inhaled twice a day, clonidine patch every 7 days, Colace 100 mg three times a day, Dilaudid 0.5 mg every 2 hours p.r.n. and also Dilaudid 1 mg every 4 hours for severe pain. She is on IV heparin, Imdur 30 mg daily, labetalol IV drip, metoprolol tartrate 100 mg twice a day, cefepime 2 g daily, Norvasc 10 mg daily, Protonix 40 mg daily, Pulmicort inhaled twice a day, IV fluid half-normal saline 50 mL per hour, Solu-Medrol 30 mg every 12 hours, Xopenex inhaled every 6 hours, Zofran p.r.n. basis. LABORATORY DATA: Shows hemoglobin 8.2, hematocrit 27.8, WBC 8.1, platelet count is 214. PTT is 74. ABG showed pH 7.34, PCO2 48, O2 92 that is on nasal cannula. Sodium 150, potassium 5, chloride 120, bicarbonate is 26, BUN 60, creatinine 1.8, glucose is 231, calcium is 9.2, total bili 0.4, AST 31, ALT 22, alk phos is 148. Troponin is 1.1. Albumin is 2.8. Microbiology, blood culture has been negative. Has a CT of the abdomen and pelvis done today which shows compatible with incarcerated umbilical hernia with high-grade acute small bowel obstruction. The hernia sac also contains gastric antrum and pylorus and decompressed transverse colon. IMPRESSION AND PLAN: Incarcerated hernia with severe pain, chronic obstructive lung disease, hypoventilation syndrome, morbid obesity, history of pulmonary embolism, history of deep venous thrombosis, history of colorectal cancer, requiring colostomy. Case discussed with the patient's son at bedside. All the questions answered. Also spoke to Dr. Florian in detail. Also spoke to surgical elastic knitter hand frame. Family clearly understands risk of laparotomy on this patient because of cardiomyopathy, pulmonary embolism, pulmonary hypertension, high risk for . This kind of emergency to do the surgery need very close cardiopulmonary monitoring intraoperative and postoperative. Follow up ABG, chest x-ray, CBC, CMP in the morning. Critical care time more than 35 minutes. Thank you and we will follow with you. Pamela Ayala MD
[2018-04-14 00:21] LABS: URINE BILIRUBIN NEGATIVE (NEGATIVE); URINE BLOOD SMALL (NEGATIVE); URINE GLUCOSE (UA) NEGATIVE (NEGATIVE); URINE LEUKOCYTE ESTERASE LARGE Leu/uL (NEGATIVE); URINE PROTEIN 100 mg/dL (<30 mg/dL); URINE UROBILINOGEN 0.2 E.U./dL (<1 E.U./dL)
[2018-04-14 00:34] LABS: URINE APPEARANCE TURBID (CLEAR); URINE COLOR YELLOW (YELLOW)
[2018-04-14 00:36] LABS: URINE EPITHELIAL CELLS 0 - 2 /hpf (0-5); URINE WBC 25 - 30 /hpf (0-6)
[2018-04-14 00:37] LABS: URINE BACTERIA MANY (NEG)
--- NOTE | 2018-04-14 02:34 | PN ---
DATE: 04/10/2018 SUBJECTIVE: The patient is in ICU on IV drip. She is seen by surgeon, Dr. Mckeon; seen by hand washer, Dr. Ayala; and surgical team. The patient is still n.p.o. NG tube, she could not tolerate it, is out and she currently has no chest pain, no short of breath. PHYSICAL EXAMINATION VITAL SIGNS: As follow; temperature is 98, blood pressure 130/72, respirations 23, saturation 97%. HEAD AND NECK: Normal. No JVD. No thyromegaly. CHEST: Clear bilateral. CARDIAC: First sound and second sound normal. ABDOMEN: Obese. There is tenderness especially in middle all over the abdomen. EXTREMITIES: No edema. NEUROLOGIC: Normal. LABORATORY DATA: Shows white count 8.1, hemoglobin 8.2, hematocrit 27.8, platelet 214,000. Chemistry: Sodium 150, potassium 5, chloride 120, bicarb 26, BUN is 60, and creatinine 1.8. Blood sugar is 230 and her bilirubin is 0.4. AST and ALT are normal, alk phos is 148. Troponin is coming down now, it was 1.30 and 1.53, now it is 1.10. The patient had CT abdomen with contrast which is consistent with large midline umbilical hernia containing dilated small bowel loop with multiple air fluid level and herniation of gastric antrum and pylorus. There is interval progression of the mid small bowel dilation with decompression, small bowel loop with hernia sac, so finely compatible with increased umbilical hernia with high-grade acute small bowel obstruction. The hernia also contained gastric antrum, pylorus, and decompressed transverse colon. IMPRESSION AND PLAN: 1. Small bowel obstruction. The patient and her son, Mr. Porter discussed with him and Dr. Ayala and his surgical team and the resident. Risk and benefit explained to the patient including risk of dying intraoperatively during anesthesia and during surgery. The reason the patient is high risk, she has acute non-ST elevation myocardial infarction, she also has cardiac dysfunction, pulmonary hypertension, she has a history of pulmonary embolism in the past and morbid obesity and comorbid illnesses including diabetes. Condition explained to the patient. The alternative is that it will be worsened clinically for her hernia and will need to be operated. Discussed with Dr. Mckeon. Also, I discussed with him, although its a high risk, it has to be done. The patient's son was explained the condition. He understood the risks and benefits and alternatives and agreed with proceeding with the plan. Anesthesiologist is on-call today and tomorrow. The patient's condition including pulmonary hypertension has been known to them. We will go ahead and do the surgery tomorrow. 2. Hypertension, controlled better with IV labetalol. 3. Diabetes. Continue insulin coverage, is n.p.o. 4. Continue current medications for her underlying chronic obstructive pulmonary disease, obstructive sleep apnea. Continue steroids. Continue Protonix IV. Continue the rest of the medications including current IV heparin for non-ST elevation myocardial infarction, which will be discontinued within the hours before surgery. Continue Dilaudid. Continue current medications, inhaled and IV bronchodilators. Discussed with Dr. Ayala and other consultants. Elroy Florian MD
[2018-04-14] MEDS: HYDROmorphone 1 mg/ml ISec IVP PRN (03:11)
[2018-04-14] MEDS: HYDROmorphone 0.5 mg/0.5 ml ISec IVP PRN ×2 (05:02→07:32)
[2018-04-14 05:57] LABS: BASO # 0.02 K/mm3 (0.0-2.0); BASO % 0.2 % (0.0-3.0); EOS % 0.1 % (1.5-5.0); GRAN # 8.34 (1.4-6.5); GRAN % 85.4 % (50.0-68.0); HEMOGLOBIN 8.6 g/dL (12.0-16.0); LYMPH # 1.1 (1.2-3.4); LYMPH % 10.8 % (22.0-35.0); MEAN CELL VOLUME 89.7 fl (80.0-105.0); MEAN CORPUSCULAR HEMOGLOBIN 26.9 pg (25.0-35.0); MEAN PLATELET VOLUME 10.6 fl (7.0-11.0); MONO # 0.3 (0.1-0.6); MONO % 3.5 % (1.0-6.0); RBC 3.2 10^6/uL (3.5-6.1); RED CELL DISTRIBUTION WIDTH 19.5 % (11.5-14.5); WHITE BLOOD COUNT 9.8 10^3/uL (4.5-11.0)
[2018-04-14 06:00] LABS: INR 1.64; PARTIAL THROMBOPLASTIN TIME 28.9 Seconds (25.1-36.5)
[2018-04-14 06:05] LABS: ALB/GLOB RATIO 0.8 (1.1-1.8); ALBUMIN 2.7 g/dL (3.0-4.8); CALCIUM 8.7 mg/dL (8.4-10.5)
[2018-04-14] MEDS ORDERED: Magnesium Sulfate 2 gm/50 ml 2 GM/50 ML BAG IVPB ONE (07:18)
[2018-04-14] MEDS: Insulin Reg-LOW-Coverage SC SCH ×4 (07:30→21:46)
[2018-04-14] MEDS: Budesonide 0.5 mg/2 ml Inhal Susp UD IH SCH ×2 (08:19→19:52)
[2018-04-14] MEDS: Arformoterol 15 mcg/2 ml Inh Sol IH SCH ×2 (08:19→19:52)
[2018-04-14] MEDS: Cefepime IV 2 gm in NS 2 GM/100 ML BAG IVPB SCH (09:04)
[2018-04-14] MEDS ORDERED: Propofol 10 mg/ml Inj (20 ML) ONE (09:22)
[2018-04-14] MEDS: MethylPREDNISolone 40 mg Vial IVP SCH ×2 (09:22→22:20)
[2018-04-14] MEDS ORDERED: Midazolam 2 MG/2 ML VIAL ONE (09:23)
[2018-04-14] MEDS ORDERED: Glycopyrrolate 0.2 mg/ml (2ml vial) ONE (09:23)
[2018-04-14] MEDS ORDERED: Succinylcholine 200 mg/10 ml Inj IV ONE (09:23)
[2018-04-14] MEDS ORDERED: Rocuronium 10 mg/ml (5 ml) ONE ×3 (09:23→11:25)
[2018-04-14] MEDS ORDERED: Etomidate 20 mg/10ml Inj IV ONE (09:24)
[2018-04-14] MEDS ORDERED: Neostigmine Methylsulfate 3mg/3ml Syringe IV ONE (09:25)
--- NOTE | 2018-04-14 09:57 | PN ---
DATE: 04/14/2018 PUBLICITY DIRECTOR NOTE SUBJECTIVE: The patient is awake and alert in the bed and family is at bedside. The patient continues to have abdominal pain. ANESTHESIA: Is in the room getting consent for surgery. The patient is more planned for abdominal surgery for incarcerated hernia. The patient is on labetalol and hemodynamically is stable. Labetalol is helping to correct the increased blood pressure. She is on O2 via nasal cannula. No active respiratory distress at this time. The patient had no nausea or vomiting. No diarrhea and is n.p.o. for the surgery. PHYSICAL EXAMINATION: VITAL SIGNS: Note that her temperature is 98.1, her pulse is 76, respirations are 13 and BP is 163/60. SKIN: Warm and dry. HEENT: Head atraumatic, normocephalic. Eyes reactive to light. Ears, nose and throat seem to be within normal limits. NECK: Supple. No JVD. No thyroid enlargement, no lymph nodes. HEART: Has regular rate and rhythm. Normal S1, S2. LUNGS: Reveal decreased breath sounds at the bases bilaterally. ABDOMEN: Soft, obese. Tender to palpation, little to no bowel sounds. GENITALIA AND RECTAL: Deferred. MUSCULOSKELETAL: No joint deformities. EXTREMITIES: Reveal positive lower extremity edema. NEUROLOGIC: She seemed to be grossly intact. LABORATORY DATA: As far as her laboratories, let us see now, her white count is 9.8, hemoglobin is 8.6 and hematocrit is 28.7 with platelets of 184,000. The patient's sodium is 147, potassium 5.0, chloride 118, CO2 of 26 with a BUN of 59, creatinine of 1.7 and glucose of 239. Note that the patient's troponins latest one is 1.10. IMPRESSION: As far as my impression, the patient has small bowel obstruction with incarcerated hernia, has a history of colon carcinoma and colostomy. The patient has myocardial infarction with increased troponins, but is hemodynamically stable with IV labetalol for blood pressure. The patient has hypertension, obstructive sleep apnea, chronic obstructive pulmonary disease, morbid obesity and a history of pulmonary embolus and deep venous thrombosis. It is noted that she has a cardiomyopathy and carries a diagnosis of anemia as well as renal insufficiency. The patient does have obesity hypoventilation syndrome. PLAN: As far as our plan, the patient is being closely followed by Surgery, Cardiology as well as Pulmonary and clearance for Surgery has been given the Pulmonary and Cardiology understanding the risk and both services have explained the risks of surgery to the family as well as the patient. The patient is on IV fluids. She is getting hydralazine as well as clonidine and Brovana and is on Dilaudid for pain. The patient is getting Lopressor as well as Maxipime and Protonix. She is on Pulmicort, Solu-Medrol as well as Zofran for p.r.n. for nauseousness. The patient is scheduled to go to the ER for surgery to correct the incarcerated hernia, and we will continue to treat aggressively along with the other consultants and the primary care doctor. Jamal Masters MD
[2018-04-14] MEDS: Propofol 10 mg/ml 1,000 MG/100 ML VIAL IV PRN ×3 (13:45→23:43)
--- NOTE | 2018-04-14 13:47 | PCM.SURG1 ---
Surgeon's Initial Post Op Note - Surgeon's Notes Surgeon: Dr. Mckeon Director Of Maternity Services: Dr. Wilkinson PGY3 Type of Anesthesia: General Endo Pre-Operative Diagnosis: incarcerated ventral hernia, small bowel obstruction Operative Findings: see dictation. small bowel obstruction in lower abd. Post-Operative Diagnosis: same Operation Performed: exploratory laparotomy, ventral hernia repair with mesh, revision of colostomy with mucous fistula, lysis of adhesions Specimen/Specimens Removed: hernia sac, colostomy Estimated Blood Loss: EBL {In ML}: 150 Blood Products Given: PRBC (1 unit pRBC) Drains Used: Dewayne Post-Op Condition: Fair Date of Surgery/Procedure: 04/14/18 Time of Surgery/Procedure: 13:48
[2018-04-14 14:14] LABS: HEMOGLOBIN 9.9 g/dL (12.0-16.0); MEAN CELL VOLUME 87.9 fl (80.0-105.0); MEAN CORPUSCULAR HEMOGLOBIN 26.5 pg (25.0-35.0); MEAN CORPUSCULAR HGB CONC 30.2 g/dl (31.0-37.0); MEAN PLATELET VOLUME 10.6 fl (7.0-11.0); RBC 3.73 10^6/uL (3.5-6.1); RED CELL DISTRIBUTION WIDTH 19.3 % (11.5-14.5); WHITE BLOOD COUNT 11.7 10^3/uL (4.5-11.0)
--- NOTE | 2018-04-14 14:14 | RAD ---
Date of service: 04/14/2018 HISTORY: s/p intubation COMPARISON: 04/12/2018 FINDINGS: Endotracheal tube terminates 2 cm proximal to the alexey. The nasogastric tube terminates in the stomach. The right central venous line terminates at the cavoatrial junction. LUNGS: There is worsening pulmonary venous congestion and perihilar edema. PLEURA: Small effusions. No pneumothorax. CARDIOVASCULAR: Severe cardiomegaly. Atherosclerotic aortic arch calcifications are present. OSSEOUS STRUCTURES: Within normal limits for the patient's age. VISUALIZED UPPER ABDOMEN: Normal. OTHER FINDINGS: None. IMPRESSION: Endotracheal tube terminates 2 cm proximal to the alexey. Worsening congestive heart failure and pulmonary edema.
[2018-04-14 14:17] LABS: ALB/GLOB RATIO 0.8 (1.1-1.8); ALBUMIN 2.5 g/dL (3.0-4.8); CALCIUM 8.6 mg/dL (8.4-10.5)
[2018-04-14] MEDS: Sodium Chloride 0.45% 1,000 ML IV SCH (14:22)
--- NOTE | 2018-04-14 14:58 | CP.PCM.PN ---
Subjective - Date & Time of Evaluation Date of Evaluation: 04/14/18 Time of Evaluation: 14:55 - Subjective Subjective: Nephrology Consultation Note: Assessment: critical SBO s/p ex lap Acute Kidney Injury (N17.9) likely pre-renal state HTN urgency, hyperkalemia left adrenal adenoma, Rt renal hyperdense cyst chronic hypercapnic respi failure Diabetic chronic Kidney Disease (E11.22) Hypertensive Chronic Kidney Disease (I12.9) Chronic Kidney Disease (N18.3) Stage 3 with 2.4 gm proteinuria (R80.9) likely due to DM/HTN/Obesity Anemia Vit D def morbid obesity, CAD s/p stent, COPD/SUMMER, rectal ca s/p colostomy Plan No acute need for renal replacement therapy at this time. . HTN better controlled in ICU on labetalol drip. also has clonidine patch. once orally taking resume norvasc 10 mg/day. lopressor 100 bid, hydralazine and imdur. Monitor Input/Output, daily weights and renal function with basic metabolic panel continue with IVF as 0.45% saline @ 50 ml/hr while pt NPO pulmonary and surgery following defer management of anemia to heme/onc. due to hx of malignancy, will defer use of ESAs. PRBC as needed Adrenal adenoma work up with plasma renin/aldosterone, plasma metanephrine NEGATIVE. outpt 1 mg dexa suppression test repeat renal sono in 6 months to assess her Rt renal cyst Dose meds/antibiotics for reduced GFR. Avoid fleets enema/magnesium based laxatives. Avoid nephrotoxins/NSAIDs/ iodinated contrast (unless needed emergently) Glycemic control Further work up/management as per primary team Thanks for allowing me to participate in care of your patient. Will follow patient with you. Please call if any Qs. had d/w team Dr Dae Dawn Office: [phone] Chief Complaint; abdomen pain Reason for consult: Acute Kidney Injury, CKD 3 HPI: Pt is a 62 F with hx of diabetes Mellitus (15 years), hypertension (years), CKD 3 with baseline cr 1.2-1.3 with AKIs, morbid obesity, CAD s/p stent, COPD/SUMMER on CPAP, rectal ca s/p colostomy presented with complaints of abdomen pain with nausea/vomiting. renal consult for CKD and SHELBI management. pt has no urine complaints. found to have partial SBO Denies OTC/herbal meds or NSAIDs No recent iodinated contrast exposure. No obvious episodes of low BP. ROS: unable to obtian. pt intubated Physical Examination: General Appearance: comfortable,morbidly obese. ill appearing intubated Vitals reviewed and noted as below Head; Atraumatic, normocephalic ENT: nintubated EYES: Pupils are equal, round and reactive to light accommodation. Eye muscles and extraocular movement intact. Sclera is anicteric. Neck; supple no lymphadenopathy, no thyromegaly or bruit Lungs: Normal respiratory rate/effort. Breath sounds bilateral equal, diminished at bases Heart: normal rate. s1s2 normal. No rub or gallop. Extremities: 1+ edema. No varicose veins Neurological: Patient is sedated Skin: Warm and dry. Normal turgor. No rash. Palpitation: Normal elasticity for age Abdomen: Abdomen is s/p ex lap Psych: deferred MSK: no joint tenderness or swelling. Digits and nails normal, no deformity : kidney or bladder not palpable Labs/imaging reviewed. Past medical history, past surgical history, family history, social history, allergy reviewed and noted as below Family hx: no hx of CKD. Rest non-contributory PET CT 04/2017: neg CT abdomen: left adrenal adenoma 1.9 cm Rt kidney 2.6 cm hyperdense cyst UA 100 protein, neg for blood renin and roma low, metanehrine WNL PTH 133 Vit D 27 ANCA neg, K/L ratio WNL Objective - Vital Signs/Intake and Output Vital Signs (last 24 hours): Temp Pulse Resp BP Pulse Ox 98.1 F 76 13 163/60 H 99 04/14/18 03:51 04/14/18 05:20 04/14/18 05:20 04/14/18 05:01 04/14/18 05:20 Intake and Output: 04/14/18 04/14/18 06:59 18:59 Intake Total 5 0 Output Total 600 Balance 1425 0 - Medications Medications: Current Medications Amlodipine Besylate (Norvasc) 10 mg PO DAILY [facility] Last Admin: 04/14/18 14:07 Dose: Not Given Arformoterol Tartrate (Brovana) 15 mcg IH [id number] [facility] Last Admin: 04/14/18 08:19 Dose: 15 mcg Budesonide (Pulmicort Respules) 0.5 mg IH [id number] [facility] Last Admin: 04/14/18 08:19 Dose: 0.5 mg Clonidine HCl (Catapres-Tts3 0.3 Mg/24 Hr) 1 patch TD Q7D@1000 JR Last Admin: 04/11/18 18:17 Dose: 1 patch Docusate Sodium (Colace) 100 mg PO TID [facility] Last Admin: 04/14/18 14:19 Dose: Not Given Hydralazine HCl (Apresoline) 50 mg PO TID [facility] Last Admin: 04/14/18 14:18 Dose: Not Given Hydromorphone HCl (Dilaudid) 0.5 mg IVP Q2H PRN PRN Reason: Pain, Mild (1-3) Last Admin: 04/14/18 07:32 Dose: 0.5 mg Hydromorphone HCl (Dilaudid) 1 mg IVP Q4H PRN PRN Reason: Pain, severe (8-10) Last Admin: 04/14/18 03:11 Dose: 1 mg Heparin Sodium/Sodium Chloride (Heparin 78220 Units/250ml 1/2 Normal Saline) 25,000 units in 250 mls @ 16.346 mls/hr IV .[id number] [facility]; Protocol Last Admin: 04/13/18 23:51 Dose: Not Given Sodium Chloride (Sodium Chloride 0.45%) 1,000 mls @ 50 mls/hr IV .Q20H [facility] Last Admin: 04/14/18 14:22 Dose: 50 mls/hr Labetalol HCl 250 mg/ Sodium (Chloride) 250 mls @ 60 mls/hr IV .Q4H10M PRN; Protocol PRN Reason: TITRATE PER MD ORDER Last Titration: 04/14/18 14:32 Dose: 0.5 mg/min, 30 mls/hr Cefepime HCl (Maxipime 2gm) 2 gm in 100 mls @ 25 mls/hr IVPB DAILY [facility]; Protocol Stop: 04/18/18 10:01 Last Admin: 04/14/18 09:04 Dose: 25 mls/hr Propofol (Diprivan) 1,000 mg in 100 mls @ 4.218 mls/hr IV .[id number] PRN; Protocol PRN Reason: TITRATE PER MD ORDER Insulin Human Regular (Humulin R Low) 0 units SC ACHS [facility]; Protocol Last Admin: 04/14/18 11:30 Dose: Not Given Isosorbide Mononitrate (Imdur Er) 30 mg PO DAILY [facility] Last Admin: 04/14/18 14:06 Dose: Not Given Levalbuterol HCl (Xopenex) 1.25 mg IH [id number] PRN PRN Reason: Shortness of Breath Methylprednisolone (Solu-Medrol) 30 mg IVP Q12 [facility] Last Admin: 04/14/18 09:22 Dose: 30 mg Metoprolol Tartrate (Lopressor) 100 mg PO BID [facility] Last Admin: 04/14/18 14:06 Dose: Not Given Ondansetron HCl (Zofran Inj) 4 mg IVP Q6H PRN PRN Reason: Nausea/Vomiting Last Admin: 04/11/18 12:10 Dose: 4 mg Pantoprazole Sodium (Protonix Inj) 40 mg IVP DAILY [facility] Last Admin: 04/14/18 09:22 Dose: 40 mg - Labs Labs: 04/14/18 13:50 04/14/18 13:50 PT 19.0 SECONDS (9.4-12.5) H 04/14/18 05:30 INR 1.64 04/14/18 05:30 APTT 28.9 Seconds (25.1-36.5) 04/14/18 05:30
[2018-04-14 15:03] LABS: ARTERIAL BLOOD GAS HCO3 22.7 mmol/L (21-28); ARTERIAL BLOOD GAS HEMOGLOBIN 10.5 g/dL (11.7-17.4); ARTERIAL BLOOD GAS O2 CAPACITY 14.5 mL/dl (16-24); ARTERIAL BLOOD GAS O2 CONTENT 14.3 ML/dl (15-23); ARTERIAL BLOOD GAS O2 SAT 98.8 % (95-98); ARTERIAL BLOOD GAS PCO2 42 mm/Hg (35-45); ARTERIAL BLOOD GAS PH 7.34 (7.35-7.45)
--- NOTE | 2018-04-14 18:13 | PN ---
DATE: 04/14/2018 This is [facility]'s hospital visit in the Intensive Care Unit. For Dr. Faye: SUBJECTIVE: The patient is a 62-year-old female, now status post procedure earlier today on an emergency basis for repair of an incarcerated ventral hernia, small bowel obstruction with exploratory laparotomy, ventral hernia repair with mesh and revision of the colostomy with a mucous fistula and lysis of adhesions. She is still intubated and sedated with family at the bedside with the original report as per Dr. Mckeon's evaluation that the procedure went well. She appears to be resting comfortably post procedure. PHYSICAL EXAMINATION: VITAL SIGNS: Temperature 98.1, pulse 85. The patient is still on a ventilator. Blood pressure 196/84 with a pulse ox of 100%. HEENT: She is intubated. NECK: No nodes. HEART: Tachy rate, regular rhythm. LUNGS: Clear with decreased breath sounds due to difficulty in auscultation due to the patient's obesity. EXTREMITIES: Chronic +1 edema. ABDOMEN: Obese and soft, status post procedure with dressings dry and intact. SKIN: Warm and dry. NEUROLOGIC: Still intubated and sedated post surgery. LABORATORY DATA: The patient's labs were drawn. White blood cell count 11.7, hemoglobin 9.9 after transfusion of 1 unit of packed cells prior to surgery and 1 unit after surgery as was reported, hematocrit of 32.8, platelet count of 177,000 with a chem metabolic panel showing a BUN of 59, creatinine of 1.6. The patient did have a troponin that was elevated at 1.1 yesterday, 1.5 day prior with a total protein of 5.7. The patient had a chest x-ray done today which was read as ET tube terminates 2 cm proximal to the alexey, worsening congestive failure, and pulmonary edema. ASSESSMENT: The assessment for this patient is that of postop today for emergency laparotomy for incarcerated ventral hernia, small bowel obstruction with revision of colostomy, mucous fistula, lysis of adhesions, and ventral hernia repair as per Dr. Mckeon. Pulmonary congestion, status post subendocardial myocardial infarction, chronic renal failure, history of rectal carcinoma with colostomies, atherosclerotic cardiovascular disease, anemia of chronic disease, hypertension, chronic obstructive pulmonary disease, history of deep venous thrombosis, pulmonary embolism, on anticoagulation, morbid obesity. Family members were at the bedside with report of the surgical procedure relayed to them with the prognosis guarded as the patient is now postop from her emergency surgical procedure. This is a complex patient with a comprehensive medically necessary and appropriate visit carried out in excess of 50 minutes with the patient's family at the bedside, questions answered to their satisfaction with the patient's labs reported as above and continuation of present medical regimen as per Dr. Masters, bridge worker. Prognosis for this patient is guarded. Zuhair Herrera MD
--- NOTE | 2018-04-14 20:33 | PN ---
DATE: 04/14/2018 REFERRING PHYSICIAN: Elroy Florian MD SUBJECTIVE: She is intubated and sedated, went to OR with laparotomy and hernia repair. According to nursing staff, every went well. Her colostomy area was changed to more on the right side of the abdomen from left, has a surgical drainage with serosanguineous secretion. She is still sedated. Not much ET tube secretion, hemoptysis or emesis, hematuria or diarrhea reported. OBJECTIVE: GENERAL: On ventilator and sedated. VITAL SIGNS: Afebrile, heart rate 78, respiratory rate is 20, blood pressure 154/60, pulse ox 100% on ventilator. HEENT: Moist mucous membranes. ET tube, no secretion. NECK: Supple. No JVD. LUNGS: Have fair airflow with rhonchi. HEART: S1 and S2. ABDOMEN: Colostomy looked okay. Midline surgical scar covered with dressing. Old colostomy area has been closed. EXTREMITIES: There is no edema. NEUROLOGIC: Intubated and sedated. MEDICATIONS: She is on Brovana inhaled twice a day, clonidine patch weekly, Colace 100 mg twice a day, Dilaudid 0.5 mg every 12 hours., also Dilaudid 1 mg every 4 hours p.r.n., propofol IV drip. She is getting IV labetalol, cefepime 2 g IV is being given, Protonix 40 mg daily, Pulmicort inhaled twice a day, IV fluid half-normal saline 50 mL/h, Solu-Medrol 30 mg IV every 12 hours, Zofran p.r.n. basis, Xopenex every 6 hours p.r.n. LABORATORY DATA: Hemoglobin 9.9, hematocrit 32.8, WBC 11.7, platelet count is 177. INR 1.64. PTT 29. Blood gases show pH 7.34, pCO2 of 42, O2 of 121. This is on 60% oxygen on ventilator. Sodium 148, potassium 4.9, chloride 119, bicarbonate 24, BUN 59, creatinine 1.6, glucose 224, calcium 8.6. AST 32, ALT 24, alk phos is 121. Albumin is 2.5. Microbiology: Blood culture has been negative. Chest x-ray done this afternoon shows endotracheal tube terminate 2 cm proximal to the alexey, worsening congestion. IMPRESSION AND PLAN: Status post laparotomy for incarcerated hernia with small bowel obstruction, also status post relocation of colostomy bag, chronic obstructive lung disease, hypoventilation syndrome, morbid obesity, history of pulmonary embolism, history of deep vein thrombosis, colorectal cancer requiring colostomy, morbid obesity, noncompliant with CPAP and BiPAP. From a pulmonary point of view, she looks okay. Continue bronchodilator. Keep head at 45 degrees. Pain management, antibiotics, gastric prophylaxis, DVT prophylaxis. Follow up ABG, chest x-ray, CBC, CMP and procalcitonin. Critical care time more than 35 minutes and we will follow with you. Pamela Ayala MD
--- NOTE | 2018-04-14 22:08 | PN ---
DATE: 04/14/2018 CLINIC FOLLOWUP SUBJECTIVE: The patient was seen earlier in the ICU following her surgery. The patient was found to have incarcerated ventral hernia with small bowel obstruction. She underwent exploratory laparotomy, ventral hernia repair with a mesh and revision of colostomy with mucous fistula, lysis of adhesions. The patient was hemodynamically stable, on a ventilator, sedated. PHYSICAL EXAMINATION: VITAL SIGNS: Blood pressure 154/60, heart rate 76, temperature 98.9. HEENT: Pale conjunctivae. CHEST: Clear. HEART: S1 and S2 are regular. EXTREMITIES: 1+ pitting edema. LABORATORY DATA: Hemoglobin and hematocrit 9.9 and 32.8, white count 11.7, platelet count 177,000. SMA-7 postoperatively, sodium 148, potassium 4.9, chloride 119, CO2 of 24, glucose 124, BUN 59, creatinine 1.6. ASSESSMENT: 1. Status post repair of incarcerated ventral hernia with a mesh with revision of colostomy. 2. Recent [id number]-yfcbdzywb myocardial infarction. 3. Acute renal insufficiency. 4. History of pulmonary embolism in the past. 5. History of rectal carcinoma, status post resection and colostomy a few years ago. 6. History of coronary artery disease, status post circumflex artery stenting in the past prior to her rectal surgery. RECOMMENDATIONS: Continue current clonidine patch. Continue labetalol infusion. Continue IV Maxipime at 2 g daily, Solu-Medrol 30 mg intravenously every 12 hours, and Xopenex inhaler every 6 hours p.r.n. Obtain 12-lead EKG postoperatively and resume heparin once the patient is cleared by the surgical team. Gildardo Barry MD
[2018-04-15] MEDS: Propofol 10 mg/ml 1,000 MG/100 ML VIAL IV PRN ×2 (03:04→06:54)
[2018-04-15 05:56] LABS: BASO # 0.02 K/mm3 (0.0-2.0); BASO % 0.1 % (0.0-3.0); GRAN % 89.6 % (50.0-68.0); HEMOGLOBIN 9.7 g/dL (12.0-16.0); LYMPH # 1.6 (1.2-3.4); LYMPH % 7.4 % (22.0-35.0); MEAN CELL VOLUME 87.2 fl (80.0-105.0); MEAN CORPUSCULAR HEMOGLOBIN 26.9 pg (25.0-35.0); MEAN CORPUSCULAR HGB CONC 30.9 g/dl (31.0-37.0); MEAN PLATELET VOLUME 10.9 fl (7.0-11.0); MONO # 0.6 (0.1-0.6); MONO % 2.9 % (1.0-6.0); PLATELET COUNT 167 10^3/uL (120.0-450.0); RED CELL DISTRIBUTION WIDTH 19.4 % (11.5-14.5); WHITE BLOOD COUNT 21.2 10^3/uL (4.5-11.0)
[2018-04-15 06:33] LABS: ALB/GLOB RATIO 0.8 (1.1-1.8); ALBUMIN 2.3 g/dL (3.0-4.8); CALCIUM 8.4 mg/dL (8.4-10.5)
[2018-04-15 06:42] LABS: ARTERIAL BLOOD GAS HCO3 23.1 mmol/L (21-28); ARTERIAL BLOOD GAS HEMOGLOBIN 9.8 g/dL (11.7-17.4); ARTERIAL BLOOD GAS O2 CAPACITY 13.8 mL/dl (16-24); ARTERIAL BLOOD GAS O2 CONTENT 13.7 ML/dl (15-23); ARTERIAL BLOOD GAS O2 SAT 99.4 % (95-98); ARTERIAL BLOOD GAS PCO2 39 mm/Hg (35-45); ARTERIAL BLOOD GAS PH 7.38 (7.35-7.45); ARTERIAL BLOOD GAS TCO2 24.3 mmol.L (22-28)
[2018-04-15] MEDS: HYDROmorphone 1 mg/ml ISec IVP PRN ×5 (06:53→22:49)
[2018-04-15] MEDS ORDERED: Potassium & Sodium Phosphate PO ONE (06:55)
[2018-04-15] MEDS ORDERED: Vancomycin 2 GM in Sodium Chloride 0.9% 500 ML IVPB ONE (07:02)
[2018-04-15] MEDS: Arformoterol 15 mcg/2 ml Inh Sol IH SCH ×2 (07:17→20:04)
[2018-04-15] MEDS: Budesonide 0.5 mg/2 ml Inhal Susp UD IH SCH ×2 (07:17→20:04)
[2018-04-15] MEDS ORDERED: Sodium Phosphate 15 MMOLE in Sodium Chloride 0.9% 250 ML IVPB ONE (07:39)
--- NOTE | 2018-04-15 07:40 | CP.PCM.PN ---
Objective - Vital Signs/Intake and Output Vital Signs (last 24 hours): Temp Pulse Resp BP Pulse Ox 99.1 F 81 16 149/64 99 04/15/18 03:00 04/15/18 04:20 04/15/18 03:00 04/15/18 04:00 04/15/18 04:20 Intake and Output: 04/15/18 04/15/18 06:59 18:59 Intake Total 1130 Balance 1130 - Medications Medications: Current Medications Arformoterol Tartrate (Brovana) 15 mcg IH [id number] [facility] Last Admin: 04/15/18 07:17 Dose: 15 mcg Budesonide (Pulmicort Respules) 0.5 mg IH [id number] [facility] Last Admin: 04/15/18 07:17 Dose: 0.5 mg Clonidine HCl (Catapres-Tts3 0.3 Mg/24 Hr) 1 patch TD Q7D@1000 JR Last Admin: 04/11/18 18:17 Dose: 1 patch Docusate Sodium (Colace) 100 mg PO TID [facility] Last Admin: 04/14/18 18:50 Dose: Not Given Hydralazine HCl (Apresoline) 50 mg PO TID [facility] Last Admin: 04/14/18 18:50 Dose: Not Given Hydromorphone HCl (Dilaudid) 0.5 mg IVP Q2H PRN PRN Reason: Pain, Mild (1-3) Last Admin: 04/14/18 07:32 Dose: 0.5 mg Hydromorphone HCl (Dilaudid) 1 mg IVP Q4H PRN PRN Reason: Pain, severe (8-10) Last Admin: 04/15/18 06:53 Dose: 1 mg Heparin Sodium/Sodium Chloride (Heparin 79678 Units/250ml 1/2 Normal Saline) 25,000 units in 250 mls @ 16.346 mls/hr IV .[id number] JR; Protocol Last Admin: 04/13/18 23:51 Dose: Not Given Sodium Chloride (Sodium Chloride 0.45%) 1,000 mls @ 50 mls/hr IV .Q20H [facility] Last Admin: 04/14/18 14:22 Dose: 50 mls/hr Labetalol HCl 250 mg/ Sodium (Chloride) 250 mls @ 60 mls/hr IV .Q4H10M PRN; Protocol PRN Reason: TITRATE PER MD ORDER Last Titration: 04/15/18 06:15 Dose: 0.5 mg/min, 30 mls/hr Cefepime HCl (Maxipime 2gm) 2 gm in 100 mls @ 25 mls/hr IVPB DAILY [facility]; Protocol Stop: 04/18/18 10:01 Last Admin: 04/14/18 09:04 Dose: 25 mls/hr Propofol (Diprivan) 1,000 mg in 100 mls @ 4.218 mls/hr IV .[id number] PRN; Protocol PRN Reason: TITRATE PER MD ORDER Last Admin: 04/15/18 06:54 Dose: 30 mcg/kg/min, 25.311 mls/hr Vancomycin HCl 2 gm/ Sodium (Chloride) 500 mls @ 170 mls/hr IVPB ONCE ONE; Protocol Stop: 04/15/18 09:58 Metronidazole (Flagyl) 500 mg in 100 mls @ 100 mls/hr IVPB Q8 JR; Protocol Sodium Phosphate 15 mmole/ (Sodium Chloride) 255 mls @ 42.5 mls/hr IVPB ONCE ONE Stop: 04/15/18 13:38 Insulin Human Regular (Humulin R Low) 0 units SC ACHS [facility]; Protocol Last Admin: 04/14/18 21:46 Dose: Not Given Isosorbide Mononitrate (Imdur Er) 30 mg PO DAILY [facility] Last Admin: 04/14/18 14:06 Dose: Not Given Levalbuterol HCl (Xopenex) 1.25 mg IH [id number] PRN PRN Reason: Shortness of Breath Methylprednisolone (Solu-Medrol) 30 mg IVP Q12 [facility] Last Admin: 04/14/18 22:20 Dose: 30 mg Ondansetron HCl (Zofran Inj) 4 mg IVP Q6H PRN PRN Reason: Nausea/Vomiting Last Admin: 04/11/18 12:10 Dose: 4 mg Pantoprazole Sodium (Protonix Inj) 40 mg IVP DAILY [facility] Last Admin: 04/14/18 09:22 Dose: 40 mg - Labs Labs: 04/15/18 05:30 04/15/18 05:30 PT 19.0 SECONDS (9.4-12.5) H 11/11/18 05:30 INR 1.64 04/14/18 05:30 APTT 28.9 Seconds (25.1-36.5) 04/14/18 05:30
--- NOTE | 2018-04-15 08:11 | PN ---
DATE: 04/15/2018 SUBJECTIVE: The patient was seen and examined at bedside. She was on propofol 30 mcg/kg per minute. However, it was stopped. The patient is slowly waking up. PHYSICAL EXAMINATION: VITAL SIGNS: She is on pressure support 10/5 with FiO2 of 40%. On that setting, her heart rate 85, oxygen saturation 98%, end-tidal CO2 on the monitor 44, blood pressure 147/57. She is on pressure support as was mentioned above. She is pulling about 310-320 tidal volume with respiratory rate 23. Her rapid shallow breathing index is 76. She is comfortable. She does not appear to be in pain. ENT: Head and neck atraumatic. LUNGS: Clear to auscultation bilaterally. HEART: Regular rate and rhythm. S1 and S2 distant. ABDOMEN: Soft. Mildly tender in perioperative area. Colostomy viable and pink. The was only air in the colostomy overnight. NEURO: The patient was seen moving all extremities spontaneously. SKIN: Moist. PSYCH: The patient is following commands and comfortable. LABORATORY DATA: WBC 21.2, hemoglobin 9.7 (relatively stable), platelet count 167. Sodium 146, potassium 4.3, chloride 118, carbon dioxide 26. BUN 57; creatinine 1.8, up from 1.6. Glucose 278. Chest x-ray showed some vascular congestion bilaterally with some perihilar predominance. Some subsegmental atelectasis. NG tube is below diaphragm and endotracheal tube is in correct position. Low tidal volume bilaterally. MEDICATIONS: Normal saline at 50 mL/hour, Brovana, Pulmicort, clonidine patch, Colace, Flagyl, hydralazine, Dilaudid p.r.n., isosorbide mononitrate, labetalol drip, cefepime, Solu-Medrol 30 mg IV every 12, Protonix, heparin 5000 every 8 for DVT prophylaxis (discussed with surgical team, who agreed), the patient had only 80 mL of serosanguineous discharge from GP overnight. The patient had 300 mL of urinary output over the 12 hours. ASSESSMENT AND PLAN: This is a 62-year-old lady, who presented to ICU with postoperative respiratory failure. At present time, the patient is awake, following commands. She has significant positive fluid balance. She has some vascular congestion on chest x-ray. We will proceed with sedation vacation and PST/weaning trial. Conservative fluid and oxygen management. Head of bed elevated more than 35 degrees. Oral hygiene. The patient's leukocytosis a little bit concerning. The patient has leukocytosis, which is most likely reactive, however if fever occurs or leukocytosis continue to rise will proceed with septic workup and empiric abx. Avoiding positive fluid balance may also be beneficial for acute kidney injury that the patient has. The patient has hyperchloremia and I will stop normal saline. We will try to avoid nephrotoxic medication and maintain euvolemia and euglycemia. The patient is on antibiotics. We will continue with deep venous thrombosis, gastrointestinal prophylaxis. At present time, the patient will be n.p.o. Her colostomy look viable and pink. Abdominal exam is fairly benign. Pain is controlled. If the patient passed pressure support trial, she will be extubated to bilevel positive airway pressure as she is morbidly obese and high risk for post extubation failure. We will maintain blood glucose within 140-180 range according to NICE-SUGAR trial. Addendum: patient was successfully extubated to BPAP, which she tolerates very well. will continue ICU monitoring. Labetolol switched to cardene drip, which will also be tapered off as tolerated. May need TC and IV route for antihypertensives as patient is s/p abdominal surgery. Will continue taper down steroids ccm time 40 min Sandro Patrick MD ANT
[2018-04-15 08:19] LABS: EOSINOPHIL 1 % (0.0-3.0); LYMPHOCYTE 4 % (22.0-35.0); MONOCYTE 2 % (1.0-6.0); NEUTROPHIL 93 % (50.0-70.0); PLATELET ESTIMATE NORMAL (NORMAL)
[2018-04-15] MEDS: Insulin Reg-LOW-Coverage SC SCH ×3 (08:48→19:10)
[2018-04-15] MEDS: metroNIDAZOLE IV 500 mg/100 ml 500 MG/100 ML BAG IVPB SCH ×3 (08:50→21:17)
--- NOTE | 2018-04-15 09:27 | RAD ---
Date of service: 04/15/2018 HISTORY: infiltrate COMPARISON: 04/14/2018 FINDINGS: LUNGS: Improved vascular congestion. Central lines and tubes unchanged PLEURA: No significant pleural effusion identified, no pneumothorax apparent. CARDIOVASCULAR: Aortic calcification Mild cardiomegaly. Mild vascular congestion OSSEOUS STRUCTURES: No significant abnormalities. VISUALIZED UPPER ABDOMEN: Normal. OTHER FINDINGS: None. IMPRESSION: Improved vascular congestion
[2018-04-15] MEDS: HYDROmorphone 0.5 mg/0.5 ml ISec IVP PRN ×4 (09:32→21:22)
[2018-04-15] MEDS: MethylPREDNISolone 40 mg Vial IVP SCH ×2 (10:25→21:17)
[2018-04-15] MEDS: Cefepime IV 2 gm in NS 2 GM/100 ML BAG IVPB SCH (10:45)
[2018-04-15] MEDS: Nicardipine 20 MG/200 ML 20 MG/200 ML BAG IV PRN ×4 (10:48→20:57)
--- NOTE | 2018-04-15 11:30 | CP.PCM.PN ---
Subjective - Date & Time of Evaluation Date of Evaluation: 04/14/18 Time of Evaluation: 08:55 - Subjective Subjective: Had surgery yesterday, still with abdominal pain, no fevers, no SOB at rest, no chest pain currently. Objective - Vital Signs/Intake and Output Vital Signs (last 24 hours): Temp Pulse Resp BP Pulse Ox 97.5 F L 81 17 190/73 H 92 L 04/13/18 07:30 04/13/18 10:49 04/13/18 09:01 04/13/18 10:49 04/13/18 09:01 Intake and Output: 04/13/18 04/13/18 06:59 18:59 Intake Total 3002 250 Output Total 400 Balance 2602 250 - Medications Medications: Current Medications Amlodipine Besylate (Norvasc) 10 mg PO DAILY [facility] Arformoterol Tartrate (Brovana) 15 mcg IH [id number] [facility] Last Admin: 04/13/18 08:30 Dose: 15 mcg Budesonide (Pulmicort Respules) 0.5 mg IH [id number] [facility] Last Admin: 04/13/18 08:31 Dose: 0.5 mg Clonidine HCl (Catapres-Tts3 0.3 Mg/24 Hr) 1 patch TD Q7D@1000 [facility] Last Admin: 04/11/18 18:17 Dose: 1 patch Docusate Sodium (Colace) 100 mg PO TID [facility] Last Admin: 04/13/18 10:03 Dose: 100 mg Hydralazine HCl (Apresoline) 50 mg PO TID [facility] Last Admin: 04/13/18 10:02 Dose: 50 mg Hydromorphone HCl (Dilaudid) 0.5 mg IVP Q2H PRN PRN Reason: Pain, Mild (1-3) Last Admin: 04/13/18 10:22 Dose: 0.5 mg Hydromorphone HCl (Dilaudid) 1 mg IVP Q4H PRN PRN Reason: Pain, severe (8-10) Heparin Sodium/Sodium Chloride (Heparin 34322 Units/250ml 1/2 Normal Saline) 25,000 units in 250 mls @ 16.346 mls/hr IV .[id number] [facility]; Protocol Last Titration: 04/13/18 07:13 Dose: 0 units/kg/hr, 0 mls/hr Sodium Chloride (Sodium Chloride 0.45%) 1,000 mls @ 50 mls/hr IV .Q20H JR Last Admin: 04/13/18 05:07 Dose: 50 mls/hr Labetalol HCl 250 mg/ Sodium (Chloride) 250 mls @ 60 mls/hr IV .Q4H10M PRN; Protocol PRN Reason: TITRATE PER MD ORDER Last Admin: 04/13/18 10:49 Dose: 1 mg/min, 60 mls/hr Cefepime HCl (Maxipime 2gm) 2 gm in 100 mls @ 25 mls/hr IVPB DAILY JR; Protocol Stop: 04/18/18 10:01 Last Admin: 04/13/18 10:50 Dose: 25 mls/hr Insulin Human Regular (Humulin R Low) 0 units SC ACHS JR; Protocol Last Admin: 04/13/18 10:05 Dose: Not Given Isosorbide Mononitrate (Imdur Er) 30 mg PO DAILY [facility] Last Admin: 04/13/18 10:04 Dose: 30 mg Levalbuterol HCl (Xopenex) 1.25 mg IH [id number] PRN PRN Reason: Shortness of Breath Methylprednisolone (Solu-Medrol) 30 mg IVP Q12 [facility] Last Admin: 04/13/18 09:58 Dose: 30 mg Metoprolol Tartrate (Lopressor) 100 mg PO BID [facility] Ondansetron HCl (Zofran Inj) 4 mg IVP Q6H PRN PRN Reason: Nausea/Vomiting Last Admin: 04/11/18 12:10 Dose: 4 mg Pantoprazole Sodium (Protonix Inj) 40 mg IVP DAILY [facility] Last Admin: 04/13/18 09:58 Dose: 40 mg - Labs Labs: 04/13/18 05:30 04/13/18 05:30 PT 12.4 SECONDS (9.4-12.5) 04/08/18 22:30 INR 1.09 04/08/18 22:30 APTT 93.9 Seconds (25.1-36.5) H 04/13/18 05:30 - Constitutional Appears: Chronically Ill - Head Exam Head Exam: NORMAL INSPECTION - Respiratory Exam Respiratory Exam: Decreased Breath Sounds - Cardiovascular Exam Cardiovascular Exam: +S1, +S2 - GI/Abdominal Exam GI & Abdominal Exam: Soft. absent: Tenderness Additional comments: abdominal dressings in place Assessment and Plan - Assessment and Plan (Free Text) Plan: Assessment consider small bowel obstruction in this patient with ventral wall hernia, S/P ventral incarcerated hernia repair, adhesiolysis and revision of colostomy POD #1 acute coronary syndrome with NSTEMI COPD history of VRE UTI history of severe sepsis secondary to left medial thigh abscess, growing Proteus, S/P incision and drainage DM HTN CAD Unresectable rectal cancer S/P chemotherapy and radiation therapy S/P colostomy S/P Port-a-cath placement morbid obesity with BMI 50 obstructive sleep apnea history of pulmonary embolism S/P IVC filter placement Plan continue Cefepime, give intermittent Vancomycin and continue Flagyl day 4 and will continue to monitor clinically
--- NOTE | 2018-04-15 12:04 | CP.CCUPN ---
<Darby Candelario - Last Filed: 04/15/18 16:33> CCU Subjective - Physician Review Subjective (Free Text): CRITICAL CARE PROGRESS NOTE FOR DR. SUMAYA Candelario PGY-1 Pt seen and examined at bedside this am. 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 She was trialed on PS this am and tolerated extubation. She denied BiPAP and was extubated to 3L NC. She is awake, alert, obeying commands. She reports continued pain and discomfort. Other ROS is negative. CCU Objective - Vital Signs / Intake & Output Vital Signs (Last 4 hours): Vital Signs Temp Pulse Resp BP Pulse Ox 04/15/18 11:30 79 26 H 161/56 H 98 04/15/18 11:20 80 26 H 98 04/15/18 11:10 79 24 99 04/15/18 11:08 80 26 H 165/70 H 98 04/15/18 11:00 78 25 H 164/63 H 100 04/15/18 10:50 78 26 H 99 04/15/18 10:40 79 25 H 99 04/15/18 10:30 80 23 154/54 H 99 04/15/18 10:20 80 24 98 04/15/18 10:10 81 24 98 04/15/18 10:00 157/57 H 04/15/18 09:59 81 22 98 04/15/18 09:50 80 21 97 04/15/18 09:40 81 25 H 97 04/15/18 09:30 169/58 H 04/15/18 09:29 81 25 H 97 04/15/18 09:20 82 24 100 04/15/18 09:10 83 27 H 100 04/15/18 09:00 98.6 F 166/58 H 04/15/18 08:59 85 28 H 99 04/15/18 08:50 85 28 H 100 04/15/18 08:43 164/66 H 04/15/18 08:40 88 46 H 100 04/15/18 08:34 87 25 H 164/66 H 100 04/15/18 08:30 160/76 H 04/15/18 08:29 86 32 H 100 04/15/18 08:20 83 97 04/15/18 08:10 84 97 Intake and Output (Last 8hrs): Intake & Output 04/14/18 04/15/18 04/15/18 22:59 06:59 14:59 Intake Total 2200 655 80 Output Total 1245 Balance 955 655 80 Intake: IV 1875 655 80 RCWP 1300 Blood Product 325 Output: Gastric Amount 600 Stomach 600 Drainage 95 Right Abdomen 95 Urine 550 Urethral ([place]) 550 Other: # Bowel Movements 0 - Physical Exam Head: Positive for: Atraumatic, Normocephalic Pupils: Positive for: PERRL Extroacular Muscles: Positive for: EOMI Conjunctiva: Positive for: Normal Mouth: Positive for: Moist Mucous Membranes Neck: Positive for: Normal Range of Motion Respiratory/Chest: Positive for: Clear to Auscultation, Good Air Exchange. Negative for: Respiratory Distress, Accessory Muscle Use Cardiovascular: Positive for: Regular Rate and Rhythm, Normal S1, S2. Negative for: Murmurs Abdomen: Positive for: Tenderness (Diffuse mid/lower abdominal tenderness). Negative for: Distention, Peritoneal Signs, Other (No erythema noted around colostomy. Abdominal binder in place. Dressing c/d/i) Back: Positive for: Normal Inspection Upper Extremity: Positive for: Normal Inspection. Negative for: Cyanosis, Edema Lower Extremity: Positive for: Normal Inspection. Negative for: Edema Neurological: Positive for: GCS=15, CN II-XII Intact, Speech Normal Skin: Positive for: Warm, Dry, Normal Color. Negative for: Rashes Psychiatric: Positive for: Alert, Oriented x 3, Normal Insight, Normal Concentration - Medications Active Medications: Active Medications Generic Name Dose Route Start Last Admin Trade Name Timaq PRN Reason Stop Dose Admin Arformoterol Tartrate 15 mcg 04/10/18 08:00 04/15/18 07:17 Brovana IH 15 mcg [id number] JR Administration Budesonide 0.5 mg 04/10/18 08:00 04/15/18 07:17 Pulmicort Respules IH 0.5 mg [id number] JR Administration Clonidine HCl 1 patch 04/11/18 16:15 04/11/18 18:17 Catapres-Tts3 0.3 Mg/24 Hr TD 1 patch Q7D@1000 JR Administration Docusate Sodium 100 mg 04/11/18 14:00 04/14/18 18:50 Colace PO Not Given TID JR Heparin Sodium (Porcine) 5,000 units 04/15/18 07:45 04/15/18 08:53 Heparin SC 5,000 units Q8 JR Administration Protocol Hydralazine HCl 50 mg 04/12/18 10:00 04/15/18 10:45 Apresoline PO Not Given TID JR Hydromorphone HCl 0.5 mg 04/13/18 09:52 04/15/18 09:32 Dilaudid IVP 0.5 mg Q2H PRN Administration Pain, Mild (1-3) Hydromorphone HCl 1 mg 04/13/18 09:53 04/15/18 06:53 Dilaudid IVP 1 mg Q4H PRN Administration Pain, severe (8-10) Heparin Sodium/Sodium Chloride 25,000 units in 250 mls @ 16.346 mls/hr 04/12/18 14:15 04/13/18 23:51 Heparin 26351 Units/250ml 1/2 Normal Saline IV Not Given .[id number] JR Protocol 12 UNITS/KG/HR Sodium Chloride 1,000 mls @ 50 mls/hr 04/12/18 15:06 04/14/18 14:22 Sodium Chloride 0.45% IV 50 mls/hr .Q20H JR Administration Cefepime HCl 2 gm in 100 mls @ 25 mls/hr 04/13/18 10:00 04/15/18 10:45 Maxipime 2gm IVPB 04/18/18 10:01 25 mls/hr DAILY JR Administration Protocol Metronidazole 500 mg in 100 mls @ 100 mls/hr 04/15/18 07:15 04/15/18 08:50 Flagyl IVPB 100 mls/hr Q8 JR Administration Protocol Sodium Phosphate 15 mmole/ 255 mls @ 42.5 mls/hr 04/15/18 07:39 04/15/18 09:3 9 Sodium Chloride IVPB 04/15/18 13:38 42.5 mls/hr ONCE ONE Administration Nicardipine HCl 20 mg in 200 mls @ 50 mls/hr 04/15/18 10:18 04/15/18 10:48 Cardene Iv Premix IV 5 mg/hr .Q4H PRN 50 mls/hr TITRATE PER MD ORDER Administration Protocol 5 MG/HR Insulin Human Regular 0 units 04/15/18 08:00 04/15/18 08:48 Humulin R Low SC 2 u Q6H JR Administration Protocol Isosorbide Mononitrate 30 mg 04/12/18 10:00 04/15/18 10:46 Imdur Er PO Not Given DAILY JR Levalbuterol HCl 1.25 mg 04/11/18 14:03 Xopenex IH [id number] PRN Shortness of Breath Methylprednisolone 30 mg 04/11/18 10:00 04/14/18 22:20 Solu-Medrol IVP 30 mg Q12 JR Administration Ondansetron HCl 4 mg 04/10/18 16:21 04/11/18 12:10 Zofran Inj IVP 4 mg Q6H PRN Administration Nausea/Vomiting Pantoprazole Sodium 40 mg 04/10/18 10:00 04/15/18 10:49 Protonix Inj IVP 40 mg DAILY JR Administration - Patient Studies Lab Studies: Microbiology Studies 04/11/18 10:30 Blood Culture - Preliminary Blood-Venous NO GROWTH AFTER 4 DAYS 04/11/18 10:00 Blood Culture - Preliminary Blood-Venous NO GROWTH AFTER 4 DAYS Lab Studies 04/15/18 04/15/18 04/15/18 Range/Units 07:41 06:36 05:30 WBC 21.2 H D (4.5-11.0) 10^3/uL RBC 3.60 (3.5-6.1) 10^6/uL Hgb 9.7 L (12.0-16.0) g/dL Hct 31.4 L (36.0-48.0) % MCV 87.2 (80.0-105.0) fl MCH 26.9 (25.0-35.0) pg MCHC 30.9 L (31.0-37.0) g/dl RDW 19.4 H (11.5-14.5) % Plt Count 167 (120.0-450.0) 10^3/uL MPV 10.9 (7.0-11.0) fl Gran % 89.6 H (50.0-68.0) % Lymph % (Auto) 7.4 L (22.0-35.0) % [place] % (Auto) 2.9 (1.0-6.0) % Eos % (Auto) 0.0 L (1.5-5.0) % Baso % (Auto) 0.1 (0.0-3.0) % Gran # 19.00 H (1.4-6.5) Lymph # (Auto) 1.6 (1.2-3.4) [place] # (Auto) 0.6 (0.1-0.6) Eos # (Auto) 0.0 (0.0-0.7) Baso # (Auto) 0.02 (0.0-2.0) K/mm3 Neutrophils % (Manual) 93 H (50.0-70.0) % Lymphocytes % (Manual) 4 L (22.0-35.0) % Monocytes % (Manual) 2 (1.0-6.0) % Eosinophils % (Manual) 1 (0.0-3.0) % Platelet Evaluation Normal (NORMAL) pCO2 39 (35-45) mm/Hg pO2 180.0 H (80-100) mm/Hg HCO3 23.1 (21-28) mmol/L ABG pH 7.38 (7.35-7.45) ABG Total CO2 24.3 (22-28) mmol.L ABG O2 Saturation 99.4 H (95-98) % ABG O2 Content 13.7 L (15-23) ML/dl ABG Base Excess -1.8 (-2.0-3.0) mmol/L ABG Hemoglobin 9.8 L (11.7-17.4) g/dL ABG Carboxyhemoglobin 1.8 H (0.5-1.5) % POC ABG HHb (Measured) 0.6 (0-5) % ABG Methemoglobin 1.0 (0.0-3.0) % ABG O2 Capacity 13.8 L (16-24) mL/dl Hgb O2 Saturation 96.6 (95.0-98.0) % FiO2 60.0 % Sodium (132-148) mmol/L Potassium (3.6-5.0) mmol/L Chloride (98-107) mmol/L Carbon Dioxide (21-33) mmol/L Anion Gap (10-20) BUN (7-21) mg/dL Creatinine (0.7-1.2) mg/dl Est GFR ( Amer) Est GFR (Non-Af Amer) POC Glucose (mg/dL) 241 H (65-110) mg/dL Random Glucose (70-110) mg/dL Calcium (8.4-10.5) mg/dL Phosphorus (2.5-4.5) mg/dL Magnesium (1.7-2.2) mg/dL Total Bilirubin (0.2-1.3) mg/dL AST (14-36) U/L ALT (7-56) U/L Alkaline Phosphatase (38-126) U/L Total Protein (5.8-8.3) g/dL Albumin (3.0-4.8) g/dL Globulin gm/dL Albumin/Globulin Ratio (1.1-1.8) Blood Type Antibody Screen Crossmatch BBK History Checked 04/15/18 04/14/18 04/14/18 Range/Units 05:30 21:29 14:43 WBC (4.5-11.0) 10^3/uL RBC (3.5-6.1) 10^6/uL Hgb (12.0-16.0) g/dL Hct (36.0-48.0) % MCV (80.0-105.0) fl MCH (25.0-35.0) pg MCHC (31.0-37.0) g/dl RDW (11.5-14.5) % Plt Count (120.0-450.0) 10^3/uL MPV (7.0-11.0) fl Gran % (50.0-68.0) % Lymph % (Auto) (22.0-35.0) % [place] % (Auto) (1.0-6.0) % Eos % (Auto) (1.5-5.0) % Baso % (Auto) (0.0-3.0) % Gran # (1.4-6.5) Lymph # (Auto) (1.2-3.4) [place] # (Auto) (0.1-0.6) Eos # (Auto) (0.0-0.7) Baso # (Auto) (0.0-2.0) K/mm3 Neutrophils % (Manual) (50.0-70.0) % Lymphocytes % (Manual) (22.0-35.0) % Monocytes % (Manual) (1.0-6.0) % Eosinophils % (Manual) (0.0-3.0) % Platelet Evaluation (NORMAL) pCO2 42 (35-45) mm/Hg pO2 121.0 H (80-100) mm/Hg HCO3 22.7 (21-28) mmol/L ABG pH 7.34 L (7.35-7.45) ABG Total CO2 24.0 (22-28) mmol.L ABG O2 Saturation 98.8 H (95-98) % ABG O2 Content 14.3 L (15-23) ML/dl ABG Base Excess -3.0 L (-2.0-3.0) mmol/L ABG Hemoglobin 10.5 L (11.7-17.4) g/dL ABG Carboxyhemoglobin 1.9 H (0.5-1.5) % POC ABG HHb (Measured) 1.2 (0-5) % ABG Methemoglobin 1.2 (0.0-3.0) % ABG O2 Capacity 14.5 L (16-24) mL/dl Hgb O2 Saturation 95.7 (95.0-98.0) % FiO2 60.0 % Sodium 146 (132-148) mmol/L Potassium 4.3 (3.6-5.0) mmol/L Chloride 118 H (98-107) mmol/L Carbon Dioxide 26 (21-33) mmol/L Anion Gap 7 L (10-20) BUN 57 H (7-21) mg/dL Creatinine 1.8 H (0.7-1.2) mg/dl Est GFR ( Amer) 34 Est GFR (Non-Af Amer) 28 POC Glucose (mg/dL) 294 H (65-110) mg/dL Random Glucose 278 H (70-110) mg/dL Calcium 8.4 (8.4-10.5) mg/dL Phosphorus 2.4 L (2.5-4.5) mg/dL Magnesium 1.9 (1.7-2.2) mg/dL Total Bilirubin 0.4 (0.2-1.3) mg/dL AST 29 (14-36) U/L ALT 29 (7-56) U/L Alkaline Phosphatase 108 (38-126) U/L Total Protein 5.3 L (5.8-8.3) g/dL Albumin 2.3 L (3.0-4.8) g/dL Globulin 3.0 gm/dL Albumin/Globulin Ratio 0.8 L (1.1-1.8) Blood Type Antibody Screen Crossmatch BBK History Checked 04/14/18 04/14/18 04/14/18 Range/Units 13:57 13:50 13:50 WBC 11.7 H (4.5-11.0) 10^3/uL RBC 3.73 (3.5-6.1) 10^6/uL Hgb 9.9 L (12.0-16.0) g/dL Hct 32.8 L (36.0-48.0) % MCV 87.9 (80.0-105.0) fl MCH 26.5 (25.0-35.0) pg MCHC 30.2 L (31.0-37.0) g/dl RDW 19.3 H (11.5-14.5) % Plt Count 177 (120.0-450.0) 10^3/uL MPV 10.6 (7.0-11.0) fl Gran % (50.0-68.0) % Lymph % (Auto) (22.0-35.0) % [place] % (Auto) (1.0-6.0) % Eos % (Auto) (1.5-5.0) % Baso % (Auto) (0.0-3.0) % Gran # (1.4-6.5) Lymph # (Auto) (1.2-3.4) [place] # (Auto) (0.1-0.6) Eos # (Auto) (0.0-0.7) Baso # (Auto) (0.0-2.0) K/mm3 Neutrophils % (Manual) (50.0-70.0) % Lymphocytes % (Manual) (22.0-35.0) % Monocytes % (Manual) (1.0-6.0) % Eosinophils % (Manual) (0.0-3.0) % Platelet Evaluation (NORMAL) pCO2 (35-45) mm/Hg pO2 (80-100) mm/Hg HCO3 (21-28) mmol/L ABG pH (7.35-7.45) ABG Total CO2 (22-28) mmol.L ABG O2 Saturation (95-98) % ABG O2 Content (15-23) ML/dl ABG Base Excess (-2.0-3.0) mmol/L ABG Hemoglobin (11.7-17.4) g/dL ABG Carboxyhemoglobin (0.5-1.5) % POC ABG HHb (Measured) (0-5) % ABG Methemoglobin (0.0-3.0) % ABG O2 Capacity (16-24) mL/dl Hgb O2 Saturation (95.0-98.0) % FiO2 % Sodium 148 (132-148) mmol/L Potassium 4.9 (3.6-5.0) mmol/L Chloride 119 H (98-107) mmol/L Carbon Dioxide 24 (21-33) mmol/L Anion Gap 9 L (10-20) BUN 59 H (7-21) mg/dL Creatinine 1.6 H (0.7-1.2) mg/dl Est GFR ( Amer) 39 Est GFR (Non-Af Amer) 33 POC Glucose (mg/dL) 225 H (65-110) mg/dL Random Glucose 224 H (70-110) mg/dL Calcium 8.6 (8.4-10.5) mg/dL Phosphorus (2.5-4.5) mg/dL Magnesium (1.7-2.2) mg/dL Total Bilirubin 0.6 (0.2-1.3) mg/dL AST 32 (14-36) U/L ALT 24 (7-56) U/L Alkaline Phosphatase 121 (38-126) U/L Total Protein 5.7 L (5.8-8.3) g/dL Albumin 2.5 L (3.0-4.8) g/dL Globulin 3.2 gm/dL Albumin/Globulin Ratio 0.8 L (1.1-1.8) Blood Type Antibody Screen Crossmatch BBK History Checked 04/14/18 04/13/18 04/13/18 Range/Units 08:00 22:12 15:32 WBC (4.5-11.0) 10^3/uL RBC (3.5-6.1) 10^6/uL Hgb (12.0-16.0) g/dL Hct (36.0-48.0) % MCV (80.0-105.0) fl MCH (25.0-35.0) pg MCHC (31.0-37.0) g/dl RDW (11.5-14.5) % Plt Count (120.0-450.0) 10^3/uL MPV (7.0-11.0) fl Gran % (50.0-68.0) % Lymph % (Auto) (22.0-35.0) % [place] % (Auto) (1.0-6.0) % Eos % (Auto) (1.5-5.0) % Baso % (Auto) (0.0-3.0) % Gran # (1.4-6.5) Lymph # (Auto) (1.2-3.4) [place] # (Auto) (0.1-0.6) Eos # (Auto) (0.0-0.7) Baso # (Auto) (0.0-2.0) K/mm3 Neutrophils % (Manual) (50.0-70.0) % Lymphocytes % (Manual) (22.0-35.0) % Monocytes % (Manual) (1.0-6.0) % Eosinophils % (Manual) (0.0-3.0) % Platelet Evaluation (NORMAL) pCO2 (35-45) mm/Hg pO2 (80-100) mm/Hg HCO3 (21-28) mmol/L ABG pH (7.35-7.45) ABG Total CO2 (22-28) mmol.L ABG O2 Saturation (95-98) % ABG O2 Content (15-23) ML/dl ABG Base Excess (-2.0-3.0) mmol/L ABG Hemoglobin (11.7-17.4) g/dL ABG Carboxyhemoglobin (0.5-1.5) % POC ABG HHb (Measured) (0-5) % ABG Methemoglobin (0.0-3.0) % ABG O2 Capacity (16-24) mL/dl Hgb O2 Saturation (95.0-98.0) % FiO2 % Sodium (132-148) mmol/L Potassium (3.6-5.0) mmol/L Chloride (98-107) mmol/L Carbon Dioxide (21-33) mmol/L Anion Gap (10-20) BUN (7-21) mg/dL Creatinine (0.7-1.2) mg/dl Est GFR ( Amer) Est GFR (Non-Af Amer) POC Glucose (mg/dL) 242 H 220 H 226 H (65-110) mg/dL Random Glucose (70-110) mg/dL Calcium (8.4-10.5) mg/dL Phosphorus (2.5-4.5) mg/dL Magnesium (1.7-2.2) mg/dL Total Bilirubin (0.2-1.3) mg/dL AST (14-36) U/L ALT (7-56) U/L Alkaline Phosphatase (38-126) U/L Total Protein (5.8-8.3) g/dL Albumin (3.0-4.8) g/dL Globulin gm/dL Albumin/Globulin Ratio (1.1-1.8) Blood Type Antibody Screen Crossmatch BBK History Checked 04/13/18 04/13/18 04/13/18 Range/Units 14:00 12:01 08:08 WBC (4.5-11.0) 10^3/uL RBC (3.5-6.1) 10^6/uL Hgb (12.0-16.0) g/dL Hct (36.0-48.0) % MCV (80.0-105.0) fl MCH (25.0-35.0) pg MCHC (31.0-37.0) g/dl RDW (11.5-14.5) % Plt Count (120.0-450.0) 10^3/uL MPV (7.0-11.0) fl Gran % (50.0-68.0) % Lymph % (Auto) (22.0-35.0) % [place] % (Auto) (1.0-6.0) % Eos % (Auto) (1.5-5.0) % Baso % (Auto) (0.0-3.0) % Gran # (1.4-6.5) Lymph # (Auto) (1.2-3.4) [place] # (Auto) (0.1-0.6) Eos # (Auto) (0.0-0.7) Baso # (Auto) (0.0-2.0) K/mm3 Neutrophils % (Manual) (50.0-70.0) % Lymphocytes % (Manual) (22.0-35.0) % Monocytes % (Manual) (1.0-6.0) % Eosinophils % (Manual) (0.0-3.0) % Platelet Evaluation (NORMAL) pCO2 (35-45) mm/Hg pO2 (80-100) mm/Hg HCO3 (21-28) mmol/L ABG pH (7.35-7.45) ABG Total CO2 (22-28) mmol.L ABG O2 Saturation (95-98) % ABG O2 Content (15-23) ML/dl ABG Base Excess (-2.0-3.0) mmol/L ABG Hemoglobin (11.7-17.4) g/dL ABG Carboxyhemoglobin (0.5-1.5) % POC ABG HHb (Measured) (0-5) % ABG Methemoglobin (0.0-3.0) % ABG O2 Capacity (16-24) mL/dl Hgb O2 Saturation (95.0-98.0) % FiO2 % Sodium (132-148) mmol/L Potassium (3.6-5.0) mmol/L Chloride (98-107) mmol/L Carbon Dioxide (21-33) mmol/L Anion Gap (10-20) BUN (7-21) mg/dL Creatinine (0.7-1.2) mg/dl Est GFR ( Amer) Est GFR (Non-Af Amer) POC Glucose (mg/dL) 224 H 221 H (65-110) mg/dL Random Glucose (70-110) mg/dL Calcium (8.4-10.5) mg/dL Phosphorus (2.5-4.5) mg/dL Magnesium (1.7-2.2) mg/dL Total Bilirubin (0.2-1.3) mg/dL AST (14-36) U/L ALT (7-56) U/L Alkaline Phosphatase (38-126) U/L Total Protein (5.8-8.3) g/dL Albumin (3.0-4.8) g/dL Globulin gm/dL Albumin/Globulin Ratio (1.1-1.8) Blood Type O POSITIVE Antibody Screen Negative Crossmatch See Detail BBK History Checked Patient has bt Laboratory Results - last 24 hr 04/13/18 04/13/18 04/13/18 08:08 12:01 14:00 WBC RBC Hgb Hct MCV MCH MCHC RDW Plt Count MPV Gran % Lymph % (Auto) [place] % (Auto) Eos % (Auto) Baso % (Auto) Gran # Lymph # (Auto) [place] # (Auto) Eos # (Auto) Baso # (Auto) Neutrophils % (Manual) Lymphocytes % (Manual) Monocytes % (Manual) Eosinophils % (Manual) Platelet Evaluation pCO2 pO2 HCO3 ABG pH ABG Total CO2 ABG O2 Saturation ABG O2 Content ABG Base Excess ABG Hemoglobin ABG Carboxyhemoglobin POC ABG HHb (Measured) ABG Methemoglobin ABG O2 Capacity Hgb O2 Saturation FiO2 Sodium Potassium Chloride Carbon Dioxide Anion Gap BUN Creatinine Est GFR ( Amer) Est GFR (Non-Af Amer) POC Glucose (mg/dL) 221 H 224 H Random Glucose Calcium Phosphorus Magnesium Total Bilirubin AST ALT Alkaline Phosphatase Total Protein Albumin Globulin Albumin/Globulin Ratio Blood Type O POSITIVE Antibody Screen Negative Crossmatch See Detail BBK History Checked Patient has bt 04/13/18 04/13/18 04/14/18 15:32 22:12 08:00 WBC RBC Hgb Hct MCV MCH MCHC RDW Plt Count MPV Gran % Lymph % (Auto) [place] % (Auto) Eos % (Auto) Baso % (Auto) Gran # Lymph # (Auto) [place] # (Auto) Eos # (Auto) Baso # (Auto) Neutrophils % (Manual) Lymphocytes % (Manual) Monocytes % (Manual) Eosinophils % (Manual) Platelet Evaluation pCO2 pO2 HCO3 ABG pH ABG Total CO2 ABG O2 Saturation ABG O2 Content ABG Base Excess ABG Hemoglobin ABG Carboxyhemoglobin POC ABG HHb (Measured) ABG Methemoglobin ABG O2 Capacity Hgb O2 Saturation FiO2 Sodium Potassium Chloride Carbon Dioxide Anion Gap BUN Creatinine Est GFR ( Amer) Est GFR (Non-Af Amer) POC Glucose (mg/dL) 226 H 220 H 242 H Random Glucose Calcium Phosphorus Magnesium Total Bilirubin AST ALT Alkaline Phosphatase Total Protein Albumin Globulin Albumin/Globulin Ratio Blood Type Antibody Screen Crossmatch BBK History Checked 04/14/18 04/14/18 04/14/18 13:50 13:50 13:57 WBC 11.7 H RBC 3.73 Hgb 9.9 L Hct 32.8 L MCV 87.9 MCH 26.5 MCHC 30.2 L RDW 19.3 H Plt Count 177 MPV 10.6 Gran % Lymph % (Auto) [place] % (Auto) Eos % (Auto) Baso % (Auto) Gran # Lymph # (Auto) [place] # (Auto) Eos # (Auto) Baso # (Auto) Neutrophils % (Manual) Lymphocytes % (Manual) Monocytes % (Manual) Eosinophils % (Manual) Platelet Evaluation pCO2 pO2 HCO3 ABG pH ABG Total CO2 ABG O2 Saturation ABG O2 Content ABG Base Excess ABG Hemoglobin ABG Carboxyhemoglobin POC ABG HHb (Measured) ABG Methemoglobin ABG O2 Capacity Hgb O2 Saturation FiO2 Sodium 148 Potassium 4.9 Chloride 119 H Carbon Dioxide 24 Anion Gap 9 L BUN 59 H Creatinine 1.6 H Est GFR ( Amer) 39 Est GFR (Non-Af Amer) 33 POC Glucose (mg/dL) 225 H Random Glucose 224 H Calcium 8.6 Phosphorus Magnesium Total Bilirubin 0.6 AST 32 ALT 24 Alkaline Phosphatase 121 Total Protein 5.7 L Albumin 2.5 L Globulin 3.2 Albumin/Globulin Ratio 0.8 L Blood Type Antibody Screen Crossmatch BBK History Checked 04/14/18 04/14/18 04/15/18 14:43 21:29 05:30 WBC RBC Hgb Hct MCV MCH MCHC RDW Plt Count MPV Gran % Lymph % (Auto) [place] % (Auto) Eos % (Auto) Baso % (Auto) Gran # Lymph # (Auto) [place] # (Auto) Eos # (Auto) Baso # (Auto) Neutrophils % (Manual) Lymphocytes % (Manual) Monocytes % (Manual) Eosinophils % (Manual) Platelet Evaluation pCO2 42 pO2 121.0 H HCO3 22.7 ABG pH 7.34 L ABG Total CO2 24.0 ABG O2 Saturation 98.8 H ABG O2 Content 14.3 L ABG Base Excess -3.0 L ABG Hemoglobin 10.5 L ABG Carboxyhemoglobin 1.9 H POC ABG HHb (Measured) 1.2 ABG Methemoglobin 1.2 ABG O2 Capacity 14.5 L Hgb O2 Saturation 95.7 FiO2 60.0 Sodium 146 Potassium 4.3 Chloride 118 H Carbon Dioxide 26 Anion Gap 7 L BUN 57 H Creatinine 1.8 H Est GFR ( Amer) 34 Est GFR (Non-Af Amer) 28 POC Glucose (mg/dL) 294 H Random Glucose 278 H Calcium 8.4 Phosphorus 2.4 L Magnesium 1.9 Total Bilirubin 0.4 AST 29 ALT 29 Alkaline Phosphatase 108 Total Protein 5.3 L Albumin 2.3 L Globulin 3.0 Albumin/Globulin Ratio 0.8 L Blood Type Antibody Screen Crossmatch BBK History Checked 04/15/18 04/15/18 04/15/18 05:30 06:36 07:41 WBC 21.2 H D RBC 3.60 Hgb 9.7 L Hct 31.4 L MCV 87.2 MCH 26.9 MCHC 30.9 L RDW 19.4 H Plt Count 167 MPV 10.9 Gran % 89.6 H Lymph % (Auto) 7.4 L [place] % (Auto) 2.9 Eos % (Auto) 0.0 L Baso % (Auto) 0.1 Gran # 19.00 H Lymph # (Auto) 1.6 [place] # (Auto) 0.6 Eos # (Auto) 0.0 Baso # (Auto) 0.02 Neutrophils % (Manual) 93 H Lymphocytes % (Manual) 4 L Monocytes % (Manual) 2 Eosinophils % (Manual) 1 Platelet Evaluation Normal pCO2 39 pO2 180.0 H HCO3 23.1 ABG pH 7.38 ABG Total CO2 24.3 ABG O2 Saturation 99.4 H ABG O2 Content 13.7 L ABG Base Excess -1.8 ABG Hemoglobin 9.8 L ABG Carboxyhemoglobin 1.8 H POC ABG HHb (Measured) 0.6 ABG Methemoglobin 1.0 ABG O2 Capacity 13.8 L Hgb O2 Saturation 96.6 FiO2 60.0 Sodium Potassium Chloride Carbon Dioxide Anion Gap BUN Creatinine Est GFR ( Amer) Est GFR (Non-Af Amer) POC Glucose (mg/dL) 241 H Random Glucose Calcium Phosphorus Magnesium Total Bilirubin AST ALT Alkaline Phosphatase Total Protein Albumin Globulin Albumin/Globulin Ratio Blood Type Antibody Screen Crossmatch BBK History Checked Fingerstick Blood Sugar Results: 241 Review of Systems - Review of Systems Review of Systems: per HPI Critical Care Progress Note - Nutrition Nutrition: Nutrition Category Date Time Status NPO past midnight [NPO Diet] [DIET] Diets 04/13/18 Dinner Ordered Assessment/Plan - Assessment and Plan (Free Text) Assessment: 62F with morbid obesity rectal adenocarcinoma s/p abdominal perineal resection, radiation, chemotherapy and 2 colostomies, CAD, hypertension, congestive heart failure, 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 She was subsequently found to have SBO on CT scan, and is POD2 s/p exploratory laparotomy with lysis of adhesion, ventral hernia repiar, mucus fistula and colostomy revision. She was sent back to ICU Plan: Neuro: AxO Following commands. Tolerated extubation Reorient as necessary Cardiovascular: Hypertensive emergency Heparin drip on hold post-operatively switch from labetalol to nicardipine drip NPO oral hydralazine,imdur clonidine patch Pulm levalbuterol arformoterol budesonide solu-medrol 30mg IVPq12 significant positive fluid balance vascular congestion on xray avoid positive fluid balance hyperchloremia, stop NS GI: colostomy pink and viable. IVETTE draining serosanguinous fluid Abdominal binder/dressings in place Remain NPO. Advance diet per surgery recs abdominal exam appropriate for post-operative. pain is controlled /Renal avoid nephrotoxins ID: Leukocytosis likely related to surgery currently on cefepime/flagyl if fever/leukocytosis occurs, may proceed with septic workup Endo: maintain euglycemia within 140-180 per NICE-SUGAR trial DVT/GI PPx: Hep SC/Protonix Case seen, examined and discussed with attending physician, Dr. Soriano <Sandro Patrick - Last Filed: 04/15/18 18:00> CCU Objective - Vital Signs / Intake & Output Vital Signs (Last 4 hours): Vital Signs Pulse Resp BP Pulse Ox 04/15/18 15:30 80 43 H 172/54 H 92 L 04/15/18 15:20 80 22 91 L 04/15/18 15:10 80 19 91 L 04/15/18 15:00 81 26 H 166/64 H 90 L 04/15/18 14:50 81 20 91 L 04/15/18 14:40 81 17 94 L 04/15/18 14:30 80 20 162/54 H 100 11/18 14:20 81 20 95 04/15/18 14:15 80 160/54 H 04/15/18 14:10 79 22 96 04/15/18 14:00 79 22 157/58 H 98 Intake and Output (Last 8hrs): Intake & Output 04/15/18 04/15/18 04/15/18 06:59 14:59 22:59 Intake Total 655 280 200 Balance 655 280 200 Weight 322 lb Intake: IV 655 280 200 - Medications Active Medications: Active Medications Generic Name Dose Route Start Last Admin Trade Name Freq PRN Reason Stop Dose Admin Arformoterol Tartrate 15 mcg 04/10/18 08:00 04/15/18 07:17 Brovana IH 15 mcg [id number] [facility] Administration Budesonide 0.5 mg 04/10/18 08:00 04/15/18 07:17 Pulmicort Respules IH 0.5 mg [id number] JR Administration Clonidine HCl 1 patch 04/11/18 16:15 04/11/18 18:17 Catapres-Tts3 0.3 Mg/24 Hr TD 1 patch Q7D@1000 [facility] Administration Docusate Sodium 100 mg 04/11/18 14:00 04/15/18 14:48 Colace PO Not Given TID [facility] Heparin Sodium (Porcine) 5,000 units 04/15/18 07:45 04/15/18 14:47 Heparin SC 5,000 units Q8 [facility] Administration Protocol Hydralazine HCl 50 mg 04/12/18 10:00 04/15/18 14:49 Apresoline PO Not Given TID [facility] Hydralazine HCl 10 mg 04/15/18 13:41 Apresoline IVP Q6 PRN for sbp>160 Hydromorphone HCl 0.5 mg 04/13/18 09:52 04/15/18 17:46 Dilaudid IVP 0.5 mg Q2H PRN Administration Pain, Mild (1-3) Hydromorphone HCl 1 mg 04/13/18 09:53 04/15/18 16:25 Dilaudid IVP 1 mg Q4H PRN Administration Pain, severe (8-10) Heparin Sodium/Sodium Chloride 25,000 units in 250 mls @ 16.346 mls/hr 04/12/18 14:15 04/13/18 23:51 Heparin 02808 Units/250ml 1/2 Normal Saline IV Not Given .[id number] JR Protocol 12 UNITS/KG/HR Cefepime HCl 2 gm in 100 mls @ 25 mls/hr 04/13/18 10:00 04/15/18 10:45 Maxipime 2gm IVPB 04/18/18 10:01 25 mls/hr DAILY JR Administration Protocol Metronidazole 500 mg in 100 mls @ 100 mls/hr 04/15/18 07:15 04/15/18 14:19 Flagyl IVPB 100 mls/hr Q8 JR Administration Protocol Nicardipine HCl 20 mg in 200 mls @ 50 mls/hr 04/15/18 10:18 04/15/18 17:39 Cardene Iv Premix IV 7.5 mg/hr .Q4H PRN 75 mls/hr TITRATE PER MD ORDER Administration Protocol 5 MG/HR Insulin Human Regular 0 units 04/15/18 08:00 04/15/18 14:31 Humulin R Low SC 2 u Q6H JR Administration Protocol Isosorbide Mononitrate 30 mg 04/12/18 10:00 04/15/18 10:46 Imdur Er PO Not Given DAILY JR Levalbuterol HCl 1.25 mg 04/11/18 14:03 Xopenex IH [id number] PRN Shortness of Breath Methylprednisolone 20 mg 04/15/18 22:00 Solu-Medrol IVP Q12 JR Metoprolol Tartrate 5 mg 04/15/18 13:15 04/15/18 14:15 Lopressor IVP 5 mg Q6H JR Administration Ondansetron HCl 4 mg 04/10/18 16:21 04/11/18 12:10 Zofran Inj IVP 4 mg Q6H PRN Administration Nausea/Vomiting Pantoprazole Sodium 40 mg 04/10/18 10:00 04/15/18 10:49 Protonix Inj IVP 40 mg DAILY JR Administration - Patient Studies Lab Studies: Microbiology Studies 04/14/18 00:03 Urine Culture - Final Urine,Catheterized Yeast Species 04/11/18 10:30 Blood Culture - Preliminary Blood-Venous NO GROWTH AFTER 4 DAYS 04/11/18 10:00 Blood Culture - Preliminary Blood-Venous NO GROWTH AFTER 4 DAYS Lab Studies 04/15/18 04/15/18 04/15/18 Range/Units 07:41 06:36 05:30 WBC 21.2 H D (4.5-11.0) 10^3/uL RBC 3.60 (3.5-6.1) 10^6/uL Hgb 9.7 L (12.0-16.0) g/dL Hct 31.4 L (36.0-48.0) % MCV 87.2 (80.0-105.0) fl MCH 26.9 (25.0-35.0) pg MCHC 30.9 L (31.0-37.0) g/dl RDW 19.4 H (11.5-14.5) % Plt Count 167 (120.0-450.0) 10^3/uL MPV 10.9 (7.0-11.0) fl Gran % 89.6 H (50.0-68.0) % Lymph % (Auto) 7.4 L (22.0-35.0) % [place] % (Auto) 2.9 (1.0-6.0) % Eos % (Auto) 0.0 L (1.5-5.0) % Baso % (Auto) 0.1 (0.0-3.0) % Gran # 19.00 H (1.4-6.5) Lymph # (Auto) 1.6 (1.2-3.4) [place] # (Auto) 0.6 (0.1-0.6) Eos # (Auto) 0.0 (0.0-0.7) Baso # (Auto) 0.02 (0.0-2.0) K/mm3 Neutrophils % (Manual) 93 H (50.0-70.0) % Lymphocytes % (Manual) 4 L (22.0-35.0) % Monocytes % (Manual) 2 (1.0-6.0) % Eosinophils % (Manual) 1 (0.0-3.0) % Platelet Evaluation Normal (NORMAL) pCO2 39 (35-45) mm/Hg pO2 180.0 H (80-100) mm/Hg HCO3 23.1 (21-28) mmol/L ABG pH 7.38 (7.35-7.45) ABG Total CO2 24.3 (22-28) mmol.L ABG O2 Saturation 99.4 H (95-98) % ABG O2 Content 13.7 L (15-23) ML/dl ABG Base Excess -1.8 (-2.0-3.0) mmol/L ABG Hemoglobin 9.8 L (11.7-17.4) g/dL ABG Carboxyhemoglobin 1.8 H (0.5-1.5) % POC ABG HHb (Measured) 0.6 (0-5) % ABG Methemoglobin 1.0 (0.0-3.0) % ABG O2 Capacity 13.8 L (16-24) mL/dl Hgb O2 Saturation 96.6 (95.0-98.0) % FiO2 60.0 % Sodium (132-148) mmol/L Potassium (3.6-5.0) mmol/L Chloride (98-107) mmol/L Carbon Dioxide (21-33) mmol/L Anion Gap (10-20) BUN (7-21) mg/dL Creatinine (0.7-1.2) mg/dl Est GFR ( Amer) Est GFR (Non-Af Amer) POC Glucose (mg/dL) 241 H (65-110) mg/dL Random Glucose (70-110) mg/dL Calcium (8.4-10.5) mg/dL Phosphorus (2.5-4.5) mg/dL Magnesium (1.7-2.2) mg/dL Total Bilirubin (0.2-1.3) mg/dL AST (14-36) U/L ALT (7-56) U/L Alkaline Phosphatase (38-126) U/L Total Protein (5.8-8.3) g/dL Albumin (3.0-4.8) g/dL Globulin gm/dL Albumin/Globulin Ratio (1.1-1.8) 04/15/18 04/14/18 04/14/18 Range/Units 05:30 21:29 13:57 WBC (4.5-11.0) 10^3/uL RBC (3.5-6.1) 10^6/uL Hgb (12.0-16.0) g/dL Hct (36.0-48.0) % MCV (80.0-105.0) fl MCH (25.0-35.0) pg MCHC (31.0-37.0) g/dl RDW (11.5-14.5) % Plt Count (120.0-450.0) 10^3/uL MPV (7.0-11.0) fl Gran % (50.0-68.0) % Lymph % (Auto) (22.0-35.0) % [place] % (Auto) (1.0-6.0) % Eos % (Auto) (1.5-5.0) % Baso % (Auto) (0.0-3.0) % Gran # (1.4-6.5) Lymph # (Auto) (1.2-3.4) [place] # (Auto) (0.1-0.6) Eos # (Auto) (0.0-0.7) Baso # (Auto) (0.0-2.0) K/mm3 Neutrophils % (Manual) (50.0-70.0) % Lymphocytes % (Manual) (22.0-35.0) % Monocytes % (Manual) (1.0-6.0) % Eosinophils % (Manual) (0.0-3.0) % Platelet Evaluation (NORMAL) pCO2 (35-45) mm/Hg pO2 (80-100) mm/Hg HCO3 (21-28) mmol/L ABG pH (7.35-7.45) ABG Total CO2 (22-28) mmol.L ABG O2 Saturation (95-98) % ABG O2 Content (15-23) ML/dl ABG Base Excess (-2.0-3.0) mmol/L ABG Hemoglobin (11.7-17.4) g/dL ABG Carboxyhemoglobin (0.5-1.5) % POC ABG HHb (Measured) (0-5) % ABG Methemoglobin (0.0-3.0) % ABG O2 Capacity (16-24) mL/dl Hgb O2 Saturation (95.0-98.0) % FiO2 % Sodium 146 (132-148) mmol/L Potassium 4.3 (3.6-5.0) mmol/L Chloride 118 H (98-107) mmol/L Carbon Dioxide 26 (21-33) mmol/L Anion Gap 7 L (10-20) BUN 57 H (7-21) mg/dL Creatinine 1.8 H (0.7-1.2) mg/dl Est GFR ( Amer) 34 Est GFR (Non-Af Amer) 28 POC Glucose (mg/dL) 294 H 225 H (65-110) mg/dL Random Glucose 278 H (70-110) mg/dL Calcium 8.4 (8.4-10.5) mg/dL Phosphorus 2.4 L (2.5-4.5) mg/dL Magnesium 1.9 (1.7-2.2) mg/dL Total Bilirubin 0.4 (0.2-1.3) mg/dL AST 29 (14-36) U/L ALT 29 (7-56) U/L Alkaline Phosphatase 108 (38-126) U/L Total Protein 5.3 L (5.8-8.3) g/dL Albumin 2.3 L (3.0-4.8) g/dL Globulin 3.0 gm/dL Albumin/Globulin Ratio 0.8 L (1.1-1.8) 04/14/18 04/13/18 04/13/18 Range/Units 08:00 22:12 15:32 WBC (4.5-11.0) 10^3/uL RBC (3.5-6.1) 10^6/uL Hgb (12.0-16.0) g/dL Hct (36.0-48.0) % MCV (80.0-105.0) fl MCH (25.0-35.0) pg MCHC (31.0-37.0) g/dl RDW (11.5-14.5) % Plt Count (120.0-450.0) 10^3/uL MPV (7.0-11.0) fl Gran % (50.0-68.0) % Lymph % (Auto) (22.0-35.0) % [place] % (Auto) (1.0-6.0) % Eos % (Auto) (1.5-5.0) % Baso % (Auto) (0.0-3.0) % Gran # (1.4-6.5) Lymph # (Auto) (1.2-3.4) [place] # (Auto) (0.1-0.6) Eos # (Auto) (0.0-0.7) Baso # (Auto) (0.0-2.0) K/mm3 Neutrophils % (Manual) (50.0-70.0) % Lymphocytes % (Manual) (22.0-35.0) % Monocytes % (Manual) (1.0-6.0) % Eosinophils % (Manual) (0.0-3.0) % Platelet Evaluation (NORMAL) pCO2 (35-45) mm/Hg pO2 (80-100) mm/Hg HCO3 (21-28) mmol/L ABG pH (7.35-7.45) ABG Total CO2 (22-28) mmol.L ABG O2 Saturation (95-98) % ABG O2 Content (15-23) ML/dl ABG Base Excess (-2.0-3.0) mmol/L ABG Hemoglobin (11.7-17.4) g/dL ABG Carboxyhemoglobin (0.5-1.5) % POC ABG HHb (Measured) (0-5) % ABG Methemoglobin (0.0-3.0) % ABG O2 Capacity (16-24) mL/dl Hgb O2 Saturation (95.0-98.0) % FiO2 % Sodium (132-148) mmol/L Potassium (3.6-5.0) mmol/L Chloride (98-107) mmol/L Carbon Dioxide (21-33) mmol/L Anion Gap (10-20) BUN (7-21) mg/dL Creatinine (0.7-1.2) mg/dl Est GFR ( Amer) Est GFR (Non-Af Amer) POC Glucose (mg/dL) 242 H 220 H 226 H (65-110) mg/dL Random Glucose (70-110) mg/dL Calcium (8.4-10.5) mg/dL Phosphorus (2.5-4.5) mg/dL Magnesium (1.7-2.2) mg/dL Total Bilirubin (0.2-1.3) mg/dL AST (14-36) U/L ALT (7-56) U/L Alkaline Phosphatase (38-126) U/L Total Protein (5.8-8.3) g/dL Albumin (3.0-4.8) g/dL Globulin gm/dL Albumin/Globulin Ratio (1.1-1.8) 04/13/18 04/13/18 Range/Units 12:01 08:08 WBC (4.5-11.0) 10^3/uL RBC (3.5-6.1) 10^6/uL Hgb (12.0-16.0) g/dL Hct (36.0-48.0) % MCV (80.0-105.0) fl MCH (25.0-35.0) pg MCHC (31.0-37.0) g/dl RDW (11.5-14.5) % Plt Count (120.0-450.0) 10^3/uL MPV (7.0-11.0) fl Gran % (50.0-68.0) % Lymph % (Auto) (22.0-35.0) % [place] % (Auto) (1.0-6.0) % Eos % (Auto) (1.5-5.0) % Baso % (Auto) (0.0-3.0) % Gran # (1.4-6.5) Lymph # (Auto) (1.2-3.4) [place] # (Auto) (0.1-0.6) Eos # (Auto) (0.0-0.7) Baso # (Auto) (0.0-2.0) K/mm3 Neutrophils % (Manual) (50.0-70.0) % Lymphocytes % (Manual) (22.0-35.0) % Monocytes % (Manual) (1.0-6.0) % Eosinophils % (Manual) (0.0-3.0) % Platelet Evaluation (NORMAL) pCO2 (35-45) mm/Hg pO2 (80-100) mm/Hg HCO3 (21-28) mmol/L ABG pH (7.35-7.45) ABG Total CO2 (22-28) mmol.L ABG O2 Saturation (95-98) % ABG O2 Content (15-23) ML/dl ABG Base Excess (-2.0-3.0) mmol/L ABG Hemoglobin (11.7-17.4) g/dL ABG Carboxyhemoglobin (0.5-1.5) % POC ABG HHb (Measured) (0-5) % ABG Methemoglobin (0.0-3.0) % ABG O2 Capacity (16-24) mL/dl Hgb O2 Saturation (95.0-98.0) % FiO2 % Sodium (132-148) mmol/L Potassium (3.6-5.0) mmol/L Chloride (98-107) mmol/L Carbon Dioxide (21-33) mmol/L Anion Gap (10-20) BUN (7-21) mg/dL Creatinine (0.7-1.2) mg/dl Est GFR ( Amer) Est GFR (Non-Af Amer) POC Glucose (mg/dL) 224 H 221 H (65-110) mg/dL Random Glucose (70-110) mg/dL Calcium (8.4-10.5) mg/dL Phosphorus (2.5-4.5) mg/dL Magnesium (1.7-2.2) mg/dL Total Bilirubin (0.2-1.3) mg/dL AST (14-36) U/L ALT (7-56) U/L Alkaline Phosphatase (38-126) U/L Total Protein (5.8-8.3) g/dL Albumin (3.0-4.8) g/dL Globulin gm/dL Albumin/Globulin Ratio (1.1-1.8) Laboratory Results - last 24 hr 04/13/18 04/13/18 04/13/18 08:08 12:01 15:32 WBC RBC Hgb Hct MCV MCH MCHC RDW Plt Count MPV Gran % Lymph % (Auto) [place] % (Auto) Eos % (Auto) Baso % (Auto) Gran # Lymph # (Auto) [place] # (Auto) Eos # (Auto) Baso # (Auto) Neutrophils % (Manual) Lymphocytes % (Manual) Monocytes % (Manual) Eosinophils % (Manual) Platelet Evaluation pCO2 pO2 HCO3 ABG pH ABG Total CO2 ABG O2 Saturation ABG O2 Content ABG Base Excess ABG Hemoglobin ABG Carboxyhemoglobin POC ABG HHb (Measured) ABG Methemoglobin ABG O2 Capacity Hgb O2 Saturation FiO2 Sodium Potassium Chloride Carbon Dioxide Anion Gap BUN Creatinine Est GFR ( Amer) Est GFR (Non-Af Amer) POC Glucose (mg/dL) 221 H 224 H 226 H Random Glucose Calcium Phosphorus Magnesium Total Bilirubin AST ALT Alkaline Phosphatase Total Protein Albumin Globulin Albumin/Globulin Ratio 04/13/18 04/14/18 04/14/18 22:12 08:00 13:57 WBC RBC Hgb Hct MCV MCH MCHC RDW Plt Count MPV Gran % Lymph % (Auto) [place] % (Auto) Eos % (Auto) Baso % (Auto) Gran # Lymph # (Auto) [place] # (Auto) Eos # (Auto) Baso # (Auto) Neutrophils % (Manual) Lymphocytes % (Manual) Monocytes % (Manual) Eosinophils % (Manual) Platelet Evaluation pCO2 pO2 HCO3 ABG pH ABG Total CO2 ABG O2 Saturation ABG O2 Content ABG Base Excess ABG Hemoglobin ABG Carboxyhemoglobin POC ABG HHb (Measured) ABG Methemoglobin ABG O2 Capacity Hgb O2 Saturation FiO2 Sodium Potassium Chloride Carbon Dioxide Anion Gap BUN Creatinine Est GFR ( Amer) Est GFR (Non-Af Amer) POC Glucose (mg/dL) 220 H 242 H 225 H Random Glucose Calcium Phosphorus Magnesium Total Bilirubin AST ALT Alkaline Phosphatase Total Protein Albumin Globulin Albumin/Globulin Ratio 04/14/18 04/15/18 04/15/18 21:29 05:30 05:30 WBC 21.2 H D RBC 3.60 Hgb 9.7 L Hct 31.4 L MCV 87.2 MCH 26.9 MCHC 30.9 L RDW 19.4 H Plt Count 167 MPV 10.9 Gran % 89.6 H Lymph % (Auto) 7.4 L [place] % (Auto) 2.9 Eos % (Auto) 0.0 L Baso % (Auto) 0.1 Gran # 19.00 H Lymph # (Auto) 1.6 [place] # (Auto) 0.6 Eos # (Auto) 0.0 Baso # (Auto) 0.02 Neutrophils % (Manual) 93 H Lymphocytes % (Manual) 4 L Monocytes % (Manual) 2 Eosinophils % (Manual) 1 Platelet Evaluation Normal pCO2 pO2 HCO3 ABG pH ABG Total CO2 ABG O2 Saturation ABG O2 Content ABG Base Excess ABG Hemoglobin ABG Carboxyhemoglobin POC ABG HHb (Measured) ABG Methemoglobin ABG O2 Capacity Hgb O2 Saturation FiO2 Sodium 146 Potassium 4.3 Chloride 118 H Carbon Dioxide 26 Anion Gap 7 L BUN 57 H Creatinine 1.8 H Est GFR ( Amer) 34 Est GFR (Non-Af Amer) 28 POC Glucose (mg/dL) 294 H Random Glucose 278 H Calcium 8.4 Phosphorus 2.4 L Magnesium 1.9 Total Bilirubin 0.4 AST 29 ALT 29 Alkaline Phosphatase 108 Total Protein 5.3 L Albumin 2.3 L Globulin 3.0 Albumin/Globulin Ratio 0.8 L 04/15/18 04/15/18 06:36 07:41 WBC RBC Hgb Hct MCV MCH MCHC RDW Plt Count MPV Gran % Lymph % (Auto) [place] % (Auto) Eos % (Auto) Baso % (Auto) Gran # Lymph # (Auto) [place] # (Auto) Eos # (Auto) Baso # (Auto) Neutrophils % (Manual) Lymphocytes % (Manual) Monocytes % (Manual) Eosinophils % (Manual) Platelet Evaluation pCO2 39 pO2 180.0 H HCO3 23.1 ABG pH 7.38 ABG Total CO2 24.3 ABG O2 Saturation 99.4 H ABG O2 Content 13.7 L ABG Base Excess -1.8 ABG Hemoglobin 9.8 L ABG Carboxyhemoglobin 1.8 H POC ABG HHb (Measured) 0.6 ABG Methemoglobin 1.0 ABG O2 Capacity 13.8 L Hgb O2 Saturation 96.6 FiO2 60.0 Sodium Potassium Chloride Carbon Dioxide Anion Gap BUN Creatinine Est GFR ( Amer) Est GFR (Non-Af Amer) POC Glucose (mg/dL) 241 H Random Glucose Calcium Phosphorus Magnesium Total Bilirubin AST ALT Alkaline Phosphatase Total Protein Albumin Globulin Albumin/Globulin Ratio EKG/Cardiology Studies: Cardiology / EKG Studies 04/15/18 07:34 EKG [ELECTROCARDIOGRAM] Routine Comment: Reason For Exam: follow up ekg Critical Care Progress Note - Nutrition Nutrition: Nutrition Category Date Time Status NPO past midnight [NPO Diet] [DIET] Diets 04/13/18 Dinner Ordered Attending/Attestation - Attestation I have personally seen and examined this patient.: Yes I have fully participated in the care of the patient.: Yes I have reviewed all pertinent clinical information: Yes Notes (Text): 04/15/18 17:[address] Patrick note
--- NOTE | 2018-04-15 12:55 | CP.PCM.PN ---
Subjective - Date & Time of Evaluation Date of Evaluation: 04/15/18 Time of Evaluation: 12:50 - Subjective Subjective: Hematology/Oncology Progress Note Patient seen and assessed at bedside in ICU. Patient was noted to have been extubated successfully this AM and is now resting comfortably on BiPAP. She continues to endorse mild abdominal pain but reports that this has improved significantly. She denies any other complaints at this time including fevers, chills, headache, chest pain, SOB, cough, N/V/D/C, changes in urine output, skin changes or any numbness/tingling of any extremity. Objective - Vital Signs/Intake and Output Vital Signs (last 24 hours): Temp Pulse Resp BP Pulse Ox 98.6 F 79 26 H 161/56 H 98 04/15/18 09:00 04/15/18 11:30 04/15/18 11:30 04/15/18 11:30 04/15/18 11:30 Intake and Output: 04/15/18 04/15/18 06:59 18:59 Intake Total 1130 80 Balance 1130 80 - Medications Medications: Current Medications Arformoterol Tartrate (Brovana) 15 mcg IH [id number] [facility], 1928[facility]1983 Last Admin: 04/15/18 07:17 Dose: 15 mcg Budesonide (Pulmicort Respules) 0.5 mg IH [id number] [facility], [facility]1983 Last Admin: 04/15/18 07:17 Dose: 0.5 mg Clonidine HCl (Catapres-Tts3 0.3 Mg/24 Hr) 1 patch TD Q7D@1000 [facility], [facility]1983 Last Admin: 04/11/18 18:17 Dose: 1 patch Docusate Sodium (Colace) 100 mg PO TID [facility], [facility]1983 Last Admin: 04/14/18 18:50 Dose: Not Given Heparin Sodium (Porcine) (Heparin) 5,000 units SC Q8 [facility], [facility]; Protocol Last Admin: 04/15/18 08:53 Dose: 5,000 units Hydralazine HCl (Apresoline) 50 mg PO TID [facility]1983 Last Admin: 04/15/18 10:45 Dose: Not Given Hydromorphone HCl (Dilaudid) 0.5 mg IVP Q2H PRN PRN Reason: Pain, Mild (1-3) Last Admin: 04/15/18 09:32 Dose: 0.5 mg Hydromorphone HCl (Dilaudid) 1 mg IVP Q4H PRN PRN Reason: Pain, severe (8-10) Last Admin: 04/15/18 12:28 Dose: 1 mg Heparin Sodium/Sodium Chloride (Heparin 26573 Units/250ml 1/2 Normal Saline) 25,000 units in 250 mls @ 16.346 mls/hr IV .[id number] [facility], [facility]; Protocol Last Admin: 04/13/18 23:51 Dose: Not Given Sodium Chloride (Sodium Chloride 0.45%) 1,000 mls @ 50 mls/hr IV .Q20H JR Last Admin: 04/14/18 14:22 Dose: 50 mls/hr Cefepime HCl (Maxipime 2gm) 2 gm in 100 mls @ 25 mls/hr IVPB DAILY [facility], [facility]; Protocol Stop: 04/18/18 10:01 Last Admin: 04/15/18 10:45 Dose: 25 mls/hr Metronidazole (Flagyl) 500 mg in 100 mls @ 100 mls/hr IVPB Q8 JR; Protocol Last Admin: 04/15/18 08:50 Dose: 100 mls/hr Sodium Phosphate 15 mmole/ (Sodium Chloride) 255 mls @ 42.5 mls/hr IVPB ONCE ONE Stop: 04/15/18 13:38 Last Admin: 04/15/18 09:39 Dose: 42.5 mls/hr Nicardipine HCl (Cardene Iv Premix) 20 mg in 200 mls @ 50 mls/hr IV .Q4H PRN; Protocol PRN Reason: TITRATE PER MD ORDER Last Admin: 04/15/18 10:48 Dose: 5 mg/hr, 50 mls/hr Insulin Human Regular (Humulin R Low) 0 units SC Q6H JR; Protocol Last Admin: 04/15/18 08:48 Dose: 2 u Isosorbide Mononitrate (Imdur Er) 30 mg PO DAILY [facility]1983 Last Admin: 04/15/18 10:46 Dose: Not Given Levalbuterol HCl (Xopenex) 1.25 mg IH [id number] PRN PRN Reason: Shortness of Breath Methylprednisolone (Solu-Medrol) 30 mg IVP Q12 [facility] Last Admin: 04/14/18 22:20 Dose: 30 mg Ondansetron HCl (Zofran Inj) 4 mg IVP Q6H PRN PRN Reason: Nausea/Vomiting Last Admin: 04/11/18 12:10 Dose: 4 mg Pantoprazole Sodium (Protonix Inj) 40 mg IVP DAILY JR Last Admin: 04/15/18 10:49 Dose: 40 mg - Labs Labs: 04/15/18 05:30 04/15/18 05:30 PT 19.0 SECONDS (9.4-12.5) H 04/14/18 05:30 INR 1.64 04/14/18 05:30 APTT 28.9 Seconds (25.1-36.5) 04/14/18 05:30 - Additional Findings Additional findings: - Constitutional Appears: Non-toxic, No Acute Distress - Head Exam Head Exam: ATRAUMATIC, NORMOCEPHALIC - Eye Exam Eye Exam: EOMI, Normal appearance - ENT Exam ENT Exam: Mucous Membranes Moist - Neck Exam Neck exam: Positive for: Full Rom, Normal Inspection. Negative for: Lymphadenopathy, Meningismus, Tenderness, Thyromegaly - Respiratory Exam Respiratory Exam: Clear to Auscultation Bilateral, NORMAL BREATHING PATTERN. absent: Accessory Muscle Use, Decreased Breath Sounds, Rales, Rhonchi, Wheezes, Respiratory Distress - Cardiovascular Exam Cardiovascular Exam: REGULAR RHYTHM, RRR, +S1, +S2. absent: Bradycardia, Tachycardia - GI/Abdominal Exam GI & Abdominal Exam: Distended, Hernia, Normal Bowel Sounds Additional comments: IVETTE drain noted to RLQ with serosanguineous drainage noted; Surgical wound dressing clean dry and intact - Extremities Exam Extremities exam: Negative for: calf tenderness - Neurological Exam Neurological exam: Alert, Oriented x3 - Psychiatric Exam Psychiatric exam: Normal Affect, Normal Mood - Skin Skin Exam: Dry, Intact, Warm Assessment and Plan - Assessment and Plan (Free Text) Assessment: 62 year old female with a past medical history significant for Rectal Adenocarcinoma s/p APPLIANCE ADJUSTER and loop colostomy, CAD s/p GLORIA, CHF, DM2, HTN, CKD, and DVT/PE on Eliquis who presents [place] after being sent by PMD for abdominal pain and anemia. Hematology/Oncology was consulted for her history of rectal adenocarcinoma and anemia. Plan: -H/H (04/15): 9.7/31.4 (Baseline: 9.5-10.0) -Iron Studies reviewed -Vitamin B12/Folate/Lead: within normal limits -Anemia likely secondary to LANEY and CKD -S/P transfusion of two units of pRBC's -S/P one dose of IV Venofer and SC Anaresp -Continue to monitor with daily CBC's -Continue management as per Surgery, GI, Cardiology and Primary teams -Further recommendations as per Dr. Faye Patient seen and case discussed with attending, Dr. Fyae. Jeff Perez PGY2
[2018-04-15] MEDS: Metoprolol 1 mg/ml Inj IVP SCH ×2 (14:15→19:52)
--- NOTE | 2018-04-15 14:56 | CP.PCM.PN ---
Subjective - Date & Time of Evaluation Date of Evaluation: 04/15/18 Time of Evaluation: 14:55 - Subjective Subjective: Nephrology Consultation Note: Assessment: critical SBO s/p ex lap Acute Kidney Injury (N17.9) likely pre-renal state HTN urgency, hyperkalemia left adrenal adenoma, Rt renal hyperdense cyst chronic hypercapnic respi failure Diabetic chronic Kidney Disease (E11.22) Hypertensive Chronic Kidney Disease (I12.9) Chronic Kidney Disease (N18.3) Stage 3 with 2.4 gm proteinuria (R80.9) likely due to DM/HTN/Obesity Anemia Vit D def morbid obesity, CAD s/p stent, COPD/SUMMER, rectal ca s/p colostomy Plan No acute need for renal replacement therapy at this time. HTN better controlled in ICU on nicardipine drip. also has clonidine patch. once orally taking resume norvasc 10 mg/day. lopressor 100 bid, hydralazine and imdur. Monitor Input/Output, daily weights and renal function with basic metabolic panel continue with IVF as 0.45% saline @ 50 ml/hr while pt NPO, can stop IVF once pt on diet pulmonary and surgery following defer management of anemia to heme/onc. due to hx of malignancy, will defer use of ESAs. PRBC as needed agree with diuretics as lasix as needed Adrenal adenoma work up with plasma renin/aldosterone, plasma metanephrine NEGATIVE. outpt 1 mg dexa suppression test repeat renal sono in 6 months to assess her Rt renal cyst Dose meds/antibiotics for reduced GFR. Avoid fleets enema/magnesium based laxatives. Avoid nephrotoxins/NSAIDs/ iodinated contrast (unless needed emergently) Glycemic control Further work up/management as per primary team Thanks for allowing me to participate in care of your patient. Will follow patient with you. Please call if any Qs. had d/w team Dr Dae Dawn Office: [phone] Chief Complaint; abdomen pain Reason for consult: Acute Kidney Injury, CKD 3 HPI: Pt is a 62 F with hx of diabetes Mellitus (15 years), hypertension (years), CKD 3 with baseline cr 1.2-1.3 with AKIs, morbid obesity, CAD s/p stent, COPD/SUMMER on CPAP, rectal ca s/p colostomy presented with complaints of abdomen pain with nausea/vomiting. renal consult for CKD and SHELBI management. pt has no urine complaints. found to have partial SBO Denies OTC/herbal meds or NSAIDs No recent iodinated contrast exposure. No obvious episodes of low BP. ROS: pt extubated. on BiPAP. feels better Physical Examination: General Appearance: comfortable,morbidly obese. better appearing on BiPAP Vitals reviewed and noted as below Head; Atraumatic, normocephalic ENT: on BiPAP EYES: Pupils are equal, round and reactive to light accommodation. Eye muscles and extraocular movement intact. Sclera is anicteric. Neck; supple no lymphadenopathy, no thyromegaly or bruit Lungs: Normal respiratory rate/effort. Breath sounds bilateral equal, diminished at bases Heart: normal rate. s1s2 normal. No rub or gallop. Extremities: 2+ edema. No varicose veins Neurological: Patient is sedated Skin: Warm and dry. Normal turgor. No rash. Palpitation: Normal elasticity for age Abdomen: Abdomen is s/p ex lap Psych: deferred MSK: no joint tenderness or swelling. Digits and nails normal, no deformity : kidney or bladder not palpable Labs/imaging reviewed. Past medical history, past surgical history, family history, social history, allergy reviewed and noted as below Family hx: no hx of CKD. Rest non-contributory PET CT 04/2017: neg CT abdomen: left adrenal adenoma 1.9 cm Rt kidney 2.6 cm hyperdense cyst UA 100 protein, neg for blood renin and roma low, metanehrine WNL PTH 133 Vit D 27 ANCA neg, K/L ratio WNL Objective - Vital Signs/Intake and Output Vital Signs (last 24 hours): Temp Pulse Resp BP Pulse Ox 98.6 F 79 26 H 161/56 H 98 04/15/18 09:00 04/15/18 11:30 04/15/18 11:30 04/15/18 11:30 04/15/18 11:30 Intake and Output: 04/15/18 04/15/18 06:59 18:59 Intake Total 1130 280 Balance 1130 280 - Medications Medications: Current Medications Arformoterol Tartrate (Brovana) 15 mcg IH [id number] JR Last Admin: 04/15/18 07:17 Dose: 15 mcg Budesonide (Pulmicort Respules) 0.5 mg IH [id number] [facility] Last Admin: 04/15/18 07:17 Dose: 0.5 mg Clonidine HCl (Catapres-Tts3 0.3 Mg/24 Hr) 1 patch TD Q7D@1000 JR Last Admin: 04/11/18 18:17 Dose: 1 patch Docusate Sodium (Colace) 100 mg PO TID [facility] Last Admin: 04/14/18 18:50 Dose: Not Given Heparin Sodium (Porcine) (Heparin) 5,000 units SC Q8 JR; Protocol Last Admin: 04/15/18 08:53 Dose: 5,000 units Hydralazine HCl (Apresoline) 50 mg PO TID [facility] Last Admin: 04/15/18 10:45 Dose: Not Given Hydralazine HCl (Apresoline) 10 mg IVP Q6 PRN PRN Reason: for sbp>160 Hydromorphone HCl (Dilaudid) 0.5 mg IVP Q2H PRN PRN Reason: Pain, Mild (1-3) Last Admin: 04/15/18 14:11 Dose: 0.5 mg Hydromorphone HCl (Dilaudid) 1 mg IVP Q4H PRN PRN Reason: Pain, severe (8-10) Last Admin: 04/15/18 12:28 Dose: 1 mg Heparin Sodium/Sodium Chloride (Heparin 84652 Units/250ml 1/2 Normal Saline) 25,000 units in 250 mls @ 16.346 mls/hr IV .[id number] [facility]; Protocol Last Admin: 04/13/18 23:51 Dose: Not Given Sodium Chloride (Sodium Chloride 0.45%) 1,000 mls @ 50 mls/hr IV .Q20H JR Last Admin: 04/14/18 14:22 Dose: 50 mls/hr Cefepime HCl (Maxipime 2gm) 2 gm in 100 mls @ 25 mls/hr IVPB DAILY [facility]; Protocol Stop: 04/18/18 10:01 Last Admin: 04/15/18 10:45 Dose: 25 mls/hr Metronidazole (Flagyl) 500 mg in 100 mls @ 100 mls/hr IVPB Q8 [facility]; Protocol Last Admin: 04/15/18 14:19 Dose: 100 mls/hr Nicardipine HCl (Cardene Iv Premix) 20 mg in 200 mls @ 50 mls/hr IV .Q4H PRN; Protocol PRN Reason: TITRATE PER MD ORDER Last Admin: 04/15/18 14:20 Dose: 5 mg/hr, 50 mls/hr Insulin Human Regular (Humulin R Low) 0 units SC Q6H JR; Protocol Last Admin: 04/15/18 08:48 Dose: 2 u Isosorbide Mononitrate (Imdur Er) 30 mg PO DAILY [facility] Last Admin: 04/15/18 10:46 Dose: Not Given Levalbuterol HCl (Xopenex) 1.25 mg IH [id number] PRN PRN Reason: Shortness of Breath Methylprednisolone (Solu-Medrol) 20 mg IVP Q12 [facility] Metoprolol Tartrate (Lopressor) 5 mg IVP Q6H [facility] Ondansetron HCl (Zofran Inj) 4 mg IVP Q6H PRN PRN Reason: Nausea/Vomiting Last Admin: 04/11/18 12:10 Dose: 4 mg Pantoprazole Sodium (Protonix Inj) 40 mg IVP DAILY [facility] Last Admin: 04/15/18 10:49 Dose: 40 mg - Labs Labs: 04/15/18 05:30 04/15/18 05:30 PT 19.0 SECONDS (9.4-12.5) H 04/14/18 05:30 INR 1.64 04/14/18 05:30 APTT 28.9 Seconds (25.1-36.5) 04/14/18 05:30
--- NOTE | 2018-04-15 16:13 | CP.PCM.PN ---
Subjective - Date & Time of Evaluation Date of Evaluation: 04/15/18 Time of Evaluation: 07:00 - Subjective Subjective: Patient seen and examined. No acute events over night. Remains intubated. NGT 600cc's bilious output. 650 UOP. 95cc serosanguinous output from martin drain. Stoma is nice and pink. Objective - Vital Signs/Intake and Output Vital Signs (last 24 hours): Temp Pulse Resp BP Pulse Ox 98.6 F 80 43 H 172/54 H 92 L 04/15/18 09:00 04/15/18 15:30 04/15/18 15:30 04/15/18 15:30 04/15/18 15:30 Intake and Output: 04/15/18 04/15/18 06:59 18:59 Intake Total 1130 280 Balance 1130 280 - Medications Medications: Current Medications Arformoterol Tartrate (Brovana) 15 mcg IH [id number] [facility] Last Admin: 04/15/18 07:17 Dose: 15 mcg Budesonide (Pulmicort Respules) 0.5 mg IH [id number] [facility] Last Admin: 04/15/18 07:17 Dose: 0.5 mg Clonidine HCl (Catapres-Tts3 0.3 Mg/24 Hr) 1 patch TD Q7D@1000 [facility] Last Admin: 04/11/18 18:17 Dose: 1 patch Docusate Sodium (Colace) 100 mg PO TID [facility] Last Admin: 04/15/18 14:48 Dose: Not Given Heparin Sodium (Porcine) (Heparin) 5,000 units SC Q8 [facility]; Protocol Last Admin: 04/15/18 14:47 Dose: 5,000 units Hydralazine HCl (Apresoline) 50 mg PO TID [facility] Last Admin: 04/15/18 14:49 Dose: Not Given Hydralazine HCl (Apresoline) 10 mg IVP Q6 PRN PRN Reason: for sbp>160 Hydromorphone HCl (Dilaudid) 0.5 mg IVP Q2H PRN PRN Reason: Pain, Mild (1-3) Last Admin: 04/15/18 14:11 Dose: 0.5 mg Hydromorphone HCl (Dilaudid) 1 mg IVP Q4H PRN PRN Reason: Pain, severe (8-10) Last Admin: 04/15/18 12:28 Dose: 1 mg Heparin Sodium/Sodium Chloride (Heparin 44396 Units/250ml 1/2 Normal Saline) 25,000 units in 250 mls @ 16.346 mls/hr IV .[id number] [facility]; Protocol Last Admin: 04/13/18 23:51 Dose: Not Given Cefepime HCl (Maxipime 2gm) 2 gm in 100 mls @ 25 mls/hr IVPB DAILY [facility]; Protocol Stop: 04/18/18 10:01 Last Admin: 04/15/18 10:45 Dose: 25 mls/hr Metronidazole (Flagyl) 500 mg in 100 mls @ 100 mls/hr IVPB Q8 JR; Protocol Last Admin: 04/15/18 14:19 Dose: 100 mls/hr Nicardipine HCl (Cardene Iv Premix) 20 mg in 200 mls @ 50 mls/hr IV .Q4H PRN; Protocol PRN Reason: TITRATE PER MD ORDER Last Admin: 04/15/18 14:20 Dose: 5 mg/hr, 50 mls/hr Insulin Human Regular (Humulin R Low) 0 units SC Q6H JR; Protocol Last Admin: 04/15/18 14:31 Dose: 2 u Isosorbide Mononitrate (Imdur Er) 30 mg PO DAILY [facility] Last Admin: 04/15/18 10:46 Dose: Not Given Levalbuterol HCl (Xopenex) 1.25 mg IH [id number] PRN PRN Reason: Shortness of Breath Methylprednisolone (Solu-Medrol) 20 mg IVP Q12 [facility] Metoprolol Tartrate (Lopressor) 5 mg IVP Q6H [facility] Last Admin: 04/15/18 14:15 Dose: 5 mg Ondansetron HCl (Zofran Inj) 4 mg IVP Q6H PRN PRN Reason: Nausea/Vomiting Last Admin: 04/11/18 12:10 Dose: 4 mg Pantoprazole Sodium (Protonix Inj) 40 mg IVP DAILY [facility] Last Admin: 04/15/18 10:49 Dose: 40 mg - Labs Labs: 04/15/18 05:30 04/15/18 05:30 PT 19.0 SECONDS (9.4-12.5) H 04/14/18 05:30 INR 1.64 04/14/18 05:30 APTT 28.9 Seconds (25.1-36.5) 04/14/18 05:30 - Constitutional Appears: No Acute Distress - Head Exam Head Exam: NORMOCEPHALIC - Eye Exam Eye Exam: EOMI, Normal appearance - ENT Exam ENT Exam: Mucous Membranes Moist - Respiratory Exam Additional comments: intubated - Cardiovascular Exam Cardiovascular Exam: +S1, +S2 - GI/Abdominal Exam GI & Abdominal Exam: Soft. absent: Distended, Firm, Guarding, Rigid, Rebound - Skin Skin Exam: Dry, Normal Color, Warm Assessment and Plan - Assessment and Plan (Free Text) Assessment: 62F with incarcerated hernia s/p exlap, lysis of adhesions, ventral hernia repair with mesh, colostomy revision with mucous fistula POD1 Plan: -NPO -IVF -ABx -Liberation trial -DVT/GI ppx -Strict I&O's D/w Dr. Mike Herrmann PGY3
--- NOTE | 2018-04-15 17:06 | PN ---
DATE: 04/15/2018 REASON FOR CONSULTATION AND FOLLOWUP: Cardiac evaluation, preop and postop followup, coronary artery disease, non-ST segment myocardial infarction, acute renal failure, status post exploratory laparotomy, and ventral hernia repair for acute abdomen. SUBJECTIVE: The patient remains in ICU, intubated, sedated. On waking up, denies any chest pain. PHYSICAL EXAMINATION VITAL SIGNS: Temperature afebrile, heart rate 71, blood pressure 160/56. HEENT: PERRLA. Extraocular muscles intact. NECK: Supple. No carotid bruit or thyromegaly. CHEST: Clear to auscultation. HEART: S1, S2 regular. ABDOMEN: Soft. EXTREMITIES: Clubbing and cyanosis negative. LABORATORY DATA: Blood workup as follows; WBC 21.2, hemoglobin , hematocrit 31.4, platelet count 167,000. Chemistry shows sodium 146, potassium 4.8, chloride 118, carbon dioxide 26, anion gap is 7, BUN 57, and creatinine 1.8. Total protein 5.3, albumin 2.3, albumin-globulin ratio of 0.8. DIAGNOSTIC DATA: The patient's last echo of 09/01/2017 revealed normal LV function, normal segmental wall motion, grade 2 diastolic dysfunction. No mitral stenosis, no mitral regurgitation, no tricuspid regurgitation. IMPRESSION: A 62-year-old female with past medical history significant for coronary artery disease, morbid obesity, history of PE in the past, history of rectal carcinoma, status post resection and colostomy a few years ago, admitted with acute abdomen, small-bowel obstruction, subsequently underwent exploratory laparotomy, ventral hernia repair with mesh and revision of colostomy with mucous fistula, lysis of adhesions. Perioperative course was complicated by non-ST segment myocardial infarction, acute renal failure is improving, history of pulmonary embolism, history of coronary artery disease, history of stent in the circumflex in the past, status post respiratory failure. RECOMMENDATIONS: Continue to wean off the vent as tolerated. The patient is still being sedated. Continue adequate analgesia. Started clonidine patch. Put hydralazine as needed for systolic more than 160. Continue beta-joseph. Overall, the patient's condition is critical. Long-term prognosis is guarded. We will put as-needed hydralazine as the patient is nothing by mouth. We will repeat echo to assess LV function and manage her fluid status. We will follow with you. We will start IV hydralazine. Thank you Dr. Florian for providing us the opportunity in taking care of the patient. Pamela Guerrero MD (Delete this signature block when dictator is a preceptor.) cc: MD Favio (Delete if not dictated.)
--- NOTE | 2018-04-15 20:12 | PN ---
DATE: 04/15/2018 PULMONARY AND CRITICAL CARE PROGRESS NOTE REFERRING PHYSICIAN: Elroy Florian MD. SUBJECTIVE: She is extubated, on noninvasive ventilation. Awake, alert. Still has a lot of abdominal pain. Surgical drainage has a serosanguineous secretion. No hemoptysis. No hematemesis. No leg swelling. PHYSICAL EXAMINATION: GENERAL: [id number] distress. VITAL SIGNS: Temperature is 98, heart rate is 79, respiratory rate is 23, blood pressure 120/38, pulse ox 100% on noninvasive ventilation. HEENT: Moist mucous membrane. Crowded airway. NECK: Short, thick. LUNGS: Have a fair airflow with few rhonchi. HEART: S1 and S2. ABDOMEN: Incision site looks okay. Colostomy bag looks okay. Diffusely tender. EXTREMITIES: There is no edema. NEUROLOGIC: Awake, alert. MEDICATIONS: She is on hydralazine 10 mg every 6 hours p.r.n., Brovana inhaled twice a day, also on nicardipine IV, Catapres patch 0.3 mg, Dilaudid 1 mg every 4 hours for severe pain, Flagyl 500 mg IV every 8 hours, heparin 5000 units subcu every 8 hours, Imdur extended release 30 mg, metoprolol tartrate 5 mg IV every 6 hours, cefepime 2 g IV daily, budesonide inhaled twice a day, Solu-Medrol 20 mg every 12 hours, and Zofran p.r.n. basis. LABORATORY DATA: Shows hemoglobin 9.7, hematocrit 31.4, WBC 21,000, platelet is 167. ABG show pH 7.38, pCO2 of 39, pO2 of 180, that was on 60% oxygen while on ventilator. Sodium 146, potassium 4.3, chloride 118, bicarbonate 26, BUN 57, creatinine 1.8, glucose 241, calcium 8.4, phosphorus is 2.4, magnesium 1.9. AST 29, ALT 29, alk phos is 108. Albumin is 2.3. Urine culture has some yeast. Blood culture has been negative. Had echocardiogram done, report is pending. Chest x-ray done this morning, shows improved congestion. IMPRESSION AND PLAN: Status post laparotomy for incarcerated hernia and small bowel obstruction, also relocation of colostomy; chronic obstructive lung disease; hypoventilation syndrome; morbid obesity; history of pulmonary embolism; deep venous thrombosis; colorectal cancer requiring surgery; may have sleep apnea syndrome; hypoventilation syndrome, presently on noninvasive ventilation. Spoke to the patient's son, also spoke to nursing staff. Continue bronchodilator, pain management, antibiotics, gastric and DVT prophylaxis. Follow up ABG, chest x-ray, CBC, CMP in the morning. Critical care time spent more than 35 minutes. Thank you and we will follow with you. Pamela Ayala MD
[2018-04-16] MEDS: Nicardipine 20 MG/200 ML 20 MG/200 ML BAG IV PRN ×2 (01:55→06:05)
[2018-04-16] MEDS: HYDROmorphone 1 mg/ml ISec IVP PRN ×3 (03:21→21:32)
[2018-04-16] MEDS: HYDROmorphone 0.5 mg/0.5 ml ISec IVP PRN ×4 (04:37→19:02)
[2018-04-16] MEDS: Insulin Reg-LOW-Coverage SC SCH ×4 (04:50→20:51)
[2018-04-16] MEDS: Metoprolol 1 mg/ml Inj IVP SCH ×2 (04:52→16:29)
[2018-04-16] MEDS: metroNIDAZOLE IV 500 mg/100 ml 500 MG/100 ML BAG IVPB SCH ×3 (05:44→21:45)
[2018-04-16 06:03] LABS: BASO # 0.01 K/mm3 (0.0-2.0); GRAN # 19.48 (1.4-6.5); GRAN % 92.2 % (50.0-68.0); HEMOGLOBIN 9.2 g/dL (12.0-16.0); LYMPH % 4.8 % (22.0-35.0); MEAN CELL VOLUME 86.8 fl (80.0-105.0); MEAN CORPUSCULAR HEMOGLOBIN 27.1 pg (25.0-35.0); MEAN CORPUSCULAR HGB CONC 31.2 g/dl (31.0-37.0); MEAN PLATELET VOLUME 11.2 fl (7.0-11.0); MONO # 0.6 (0.1-0.6); RBC 3.4 10^6/uL (3.5-6.1); RED CELL DISTRIBUTION WIDTH 19.8 % (11.5-14.5); WHITE BLOOD COUNT 21.2 10^3/uL (4.5-11.0)
[2018-04-16 06:55] LABS: ALB/GLOB RATIO 0.8 (1.1-1.8); ALBUMIN 2.4 g/dL (3.0-4.8); CALCIUM 8.1 mg/dL (8.4-10.5)
[2018-04-16] MEDS: Budesonide 0.5 mg/2 ml Inhal Susp UD IH SCH ×2 (07:36→19:36)
[2018-04-16] MEDS: Arformoterol 15 mcg/2 ml Inh Sol IH SCH ×2 (07:36→19:36)
--- NOTE | 2018-04-16 08:22 | CP.PCM.PN ---
Subjective - Date & Time of Evaluation Date of Evaluation: 04/16/18 Time of Evaluation: 07:00 - Subjective Subjective: Patient seen and examined. No acute events over night. On high flow O2. Scant output from NGT, +BM. Stoma nice and pink, productive. NGT removed. Objective - Vital Signs/Intake and Output Vital Signs (last 24 hours): Temp Pulse Resp BP Pulse Ox 98.5 F 84 27 H 159/59 H 99 04/16/18 06:00 04/16/18 06:20 04/16/18 06:20 04/16/18 05:00 04/16/18 06:20 Intake and Output: 04/16/18 04/16/18 06:59 18:59 Intake Total 1450 Output Total 1170 Balance 280 - Medications Medications: Current Medications Arformoterol Tartrate (Brovana) 15 mcg IH [id number] [facility] Last Admin: 04/16/18 07:36 Dose: 15 mcg Budesonide (Pulmicort Respules) 0.5 mg IH [id number] [facility] Last Admin: 04/16/18 07:36 Dose: 0.5 mg Clonidine HCl (Catapres-Tts3 0.3 Mg/24 Hr) 1 patch TD Q7D@1000 [facility] Last Admin: 04/11/18 18:17 Dose: 1 patch Docusate Sodium (Colace) 100 mg PO TID [facility] Last Admin: 04/15/18 14:48 Dose: Not Given Heparin Sodium (Porcine) (Heparin) 5,000 units SC Q8 [facility]; Protocol Last Admin: 04/16/18 05:44 Dose: 5,000 units Hydralazine HCl (Apresoline) 50 mg PO TID [facility] Last Admin: 04/15/18 14:49 Dose: Not Given Hydralazine HCl (Apresoline) 10 mg IVP Q6 PRN PRN Reason: for sbp>160 Hydromorphone HCl (Dilaudid) 0.5 mg IVP Q2H PRN PRN Reason: Pain, Mild (1-3) Last Admin: 04/16/18 04:37 Dose: 0.5 mg Hydromorphone HCl (Dilaudid) 1 mg IVP Q4H PRN PRN Reason: Pain, severe (8-10) Last Admin: 04/16/18 03:21 Dose: 1 mg Heparin Sodium/Sodium Chloride (Heparin 49659 Units/250ml 1/2 Normal Saline) 25,000 units in 250 mls @ 16.346 mls/hr IV .[id number] JR; Protocol Last Admin: 04/13/18 23:51 Dose: Not Given Cefepime HCl (Maxipime 2gm) 2 gm in 100 mls @ 25 mls/hr IVPB DAILY JR; Protocol Stop: 04/18/18 10:01 Last Admin: 04/15/18 10:45 Dose: 25 mls/hr Metronidazole (Flagyl) 500 mg in 100 mls @ 100 mls/hr IVPB Q8 JR; Protocol Last Admin: 04/16/18 05:44 Dose: 100 mls/hr Nicardipine HCl (Cardene Iv Premix) 20 mg in 200 mls @ 50 mls/hr IV .Q4H PRN; Protocol PRN Reason: TITRATE PER MD ORDER Last Admin: 04/16/18 06:05 Dose: 5 mg/hr, 50 mls/hr Calcium Gluconate 1,000 mg/ (Sodium Chloride) 110 mls @ 110 mls/hr IVPB ONCE ONE Stop: 04/16/18 08:31 Insulin Human Regular (Humulin R Low) 0 units SC Q6H JR; Protocol Last Admin: 04/16/18 04:50 Dose: Not Given Isosorbide Mononitrate (Imdur Er) 30 mg PO DAILY [facility] Last Admin: 04/15/18 10:46 Dose: Not Given Levalbuterol HCl (Xopenex) 1.25 mg IH [id number] PRN PRN Reason: Shortness of Breath Methylprednisolone (Solu-Medrol) 20 mg IVP Q12 [facility] Last Admin: 04/15/18 21:17 Dose: 20 mg Metoprolol Tartrate (Lopressor) 5 mg IVP Q6H JR Last Admin: 04/16/18 04:52 Dose: 5 mg Ondansetron HCl (Zofran Inj) 4 mg IVP Q6H PRN PRN Reason: Nausea/Vomiting Last Admin: 04/11/18 12:10 Dose: 4 mg Pantoprazole Sodium (Protonix Inj) 40 mg IVP DAILY [facility] Last Admin: 04/15/18 10:49 Dose: 40 mg - Labs Labs: 04/16/18 05:59 04/16/18 05:59 PT 19.0 SECONDS (9.4-12.5) H 04/14/18 05:30 INR 1.64 04/14/18 05:30 APTT 28.9 Seconds (25.1-36.5) 04/14/18 05:30 - Constitutional Appears: No Acute Distress - Head Exam Head Exam: NORMOCEPHALIC - Eye Exam Eye Exam: EOMI, Normal appearance - ENT Exam ENT Exam: Mucous Membranes Moist - Respiratory Exam Respiratory Exam: NORMAL BREATHING PATTERN - Cardiovascular Exam Cardiovascular Exam: +S1, +S2 - GI/Abdominal Exam GI & Abdominal Exam: Soft - Neurological Exam Neurological Exam: Alert, Awake, Oriented x3 - Psychiatric Exam Psychiatric exam: Normal Mood - Skin Skin Exam: Dry, Intact, Warm Assessment and Plan - Assessment and Plan (Free Text) Assessment: 62F with incarcerated hernia s/p exlap, lysis of adhesions, ventral hernia repair with mesh, colostomy revision with mucous fistula POD2 Plan: -D/c NGT -CLD -IVF -ABx -Wean off High flow O2 -DVT/GI ppx -Strict I&O's D/w Dr. Mike Herrmann PGY3
--- NOTE | 2018-04-16 08:25 | CP.CCUPN ---
<Darby Candelario - Last Filed: 04/16/18 15:42> CCU Subjective - Physician Review Subjective (Free Text): CRITICAL CARE PROGRESS NOTE FOR DR. CHRISSY Candelario PGY-1 Pt seen and examined at bedside this am. She reports abdominal pain that has been controlled with current regimen. She is AxO, answering questions, currently on high-flow oxygen at 35 % and 50L. Per surgery recs, she is to be put on clear liquid diet. She is tolerating ice chips. Abdominal binder removed, NG tubed and linares catheter to be removed today. Colostomy draining brown stool, and IVETTE draining serosanguinous fluid. Apart from abdominal pain, she denies other ROS. CCU Objective - Vital Signs / Intake & Output Vital Signs (Last 4 hours): Vital Signs Temp Pulse Resp BP Pulse Ox 04/16/18 06:20 84 27 H 99 04/16/18 06:10 84 24 99 04/16/18 06:00 98.5 F 82 21 99 04/16/18 05:50 83 22 100 04/16/18 05:40 86 18 100 04/16/18 05:30 90 17 04/16/18 05:29 88 24 04/16/18 05:28 92 H 26 H 04/16/18 05:20 92 H 14 92 L 04/16/18 05:10 89 32 H 93 L 04/16/18 05:00 85 21 159/59 H 98 04/16/18 04:52 85 141/62 04/16/18 04:50 85 24 100 04/16/18 04:40 86 22 94 L 04/16/18 04:30 85 22 141/52 L 94 L Intake and Output (Last 8hrs): Intake & Output 04/15/18 04/16/18 04/16/18 22:59 06:59 14:59 Intake Total 2215 1250 Output Total 1370 1170 Balance 845 80 Intake: IV 2185 1200 Left Upper arm 1050 RCWP 735 800 Oral 30 50 Output: Gastric Amount 240 500 Stomach 240 500 Drainage 130 70 Right Abdomen 130 70 Urine 1000 600 Urethral (Linares) 1000 600 Other: # Bowel Movements 0 - Physical Exam Head: Positive for: Atraumatic, Normocephalic Pupils: Positive for: PERRL Extroacular Muscles: Positive for: EOMI Conjunctiva: Positive for: Normal Mouth: Positive for: Moist Mucous Membranes Neck: Positive for: Normal Range of Motion Respiratory/Chest: Positive for: Clear to Auscultation, Good Air Exchange. Negative for: Respiratory Distress, Accessory Muscle Use Cardiovascular: Positive for: Regular Rate and Rhythm, Normal S1, S2. Negative for: Murmurs Abdomen: Positive for: Tenderness (Diffuse mid/lower abdominal tenderness). Negative for: Distention, Peritoneal Signs, Other (No erythema noted around colostomy. Abdominal binder in place. Dressing c/d/i) Back: Positive for: Normal Inspection Upper Extremity: Positive for: Normal Inspection. Negative for: Cyanosis, Edema Lower Extremity: Positive for: Normal Inspection. Negative for: Edema Neurological: Positive for: GCS=15, CN II-XII Intact, Speech Normal Skin: Positive for: Warm, Dry, Normal Color. Negative for: Rashes Psychiatric: Positive for: Alert, Oriented x 3, Normal Insight, Normal Concentration - Medications Active Medications: Active Medications Generic Name Dose Route Start Last Admin Trade Name Freq PRN Reason Stop Dose Admin Arformoterol Tartrate 15 mcg 04/10/18 08:00 04/16/18 07:36 Brovana IH 15 mcg [id number] JR Administration Budesonide 0.5 mg 04/10/18 08:00 04/16/18 07:36 Pulmicort Respules IH 0.5 mg [id number] JR Administration Clonidine HCl 1 patch 04/11/18 16:15 04/11/18 18:17 Catapres-Tts3 0.3 Mg/24 Hr TD 1 patch Q7D@1000 JR Administration Docusate Sodium 100 mg 04/11/18 14:00 04/15/18 14:48 Colace PO Not Given TID [facility] Heparin Sodium (Porcine) 5,000 units 04/15/18 07:45 04/16/18 05:44 Heparin SC 5,000 units Q8 JR Administration Protocol Hydralazine HCl 50 mg 04/12/18 10:00 04/15/18 14:49 Apresoline PO Not Given TID JR Hydralazine HCl 10 mg 04/15/18 13:41 Apresoline IVP Q6 PRN for sbp>160 Hydromorphone HCl 0.5 mg 04/13/18 09:52 04/16/18 04:37 Dilaudid IVP 0.5 mg Q2H PRN Administration Pain, Mild (1-3) Hydromorphone HCl 1 mg 04/13/18 09:53 04/16/18 03:21 Dilaudid IVP 1 mg Q4H PRN Administration Pain, severe (8-10) Heparin Sodium/Sodium Chloride 25,000 units in 250 mls @ 16.346 mls/hr 04/12/18 14:15 04/13/18 23:51 Heparin 03352 Units/250ml 1/2 Normal Saline IV Not Given .[id number] JR Protocol 12 UNITS/KG/HR Cefepime HCl 2 gm in 100 mls @ 25 mls/hr 04/13/18 10:00 04/15/18 10:45 Maxipime 2gm IVPB 04/18/18 10:01 25 mls/hr DAILY JR Administration Protocol Metronidazole 500 mg in 100 mls @ 100 mls/hr 04/15/18 07:15 04/16/18 05:44 Flagyl IVPB 100 mls/hr Q8 JR Administration Protocol Nicardipine HCl 20 mg in 200 mls @ 50 mls/hr 04/15/18 10:18 04/16/18 06:05 Cardene Iv Premix IV 5 mg/hr .Q4H PRN 50 mls/hr TITRATE PER MD ORDER Administration Protocol 5 MG/HR Calcium Gluconate 1,000 mg/ 110 mls @ 110 mls/hr 04/16/18 07:32 Sodium Chloride IVPB 04/16/18 08:31 ONCE ONE Insulin Human Regular 0 units 04/15/18 08:00 04/16/18 04:50 Humulin R Low SC Not Given Q6H JR Protocol Isosorbide Mononitrate 30 mg 04/12/18 10:00 04/15/18 10:46 Imdur Er PO Not Given DAILY JR Levalbuterol HCl 1.25 mg 04/11/18 14:03 Xopenex IH [id number] PRN Shortness of Breath Methylprednisolone 20 mg 04/15/18 22:00 04/15/18 21:17 Solu-Medrol IVP 20 mg Q12 JR Administration Metoprolol Tartrate 5 mg 04/15/18 13:15 04/16/18 04:52 Lopressor IVP 5 mg Q6H JR Administration Ondansetron HCl 4 mg 04/10/18 16:21 04/11/18 12:10 Zofran Inj IVP 4 mg Q6H PRN Administration Nausea/Vomiting Pantoprazole Sodium 40 mg 04/10/18 10:00 04/15/18 10:49 Protonix Inj IVP 40 mg DAILY JR Administration - Patient Studies Lab Studies: Microbiology Studies 04/14/18 00:03 Urine Culture - Final Urine,Catheterized Yeast Species 04/11/18 10:30 Blood Culture - Preliminary Blood-Venous NO GROWTH AFTER 4 DAYS 04/11/18 10:00 Blood Culture - Preliminary Blood-Venous NO GROWTH AFTER 4 DAYS Lab Studies 04/16/18 04/16/18 04/16/18 Range/Units 05:59 05:59 03:43 WBC 21.2 H (4.5-11.0) 10^3/uL RBC 3.40 L (3.5-6.1) 10^6/uL Hgb 9.2 L (12.0-16.0) g/dL Hct 29.5 L (36.0-48.0) % MCV 86.8 (80.0-105.0) fl MCH 27.1 (25.0-35.0) pg MCHC 31.2 (31.0-37.0) g/dl RDW 19.8 H (11.5-14.5) % Plt Count 143 (120.0-450.0) 10^3/uL MPV 11.2 H (7.0-11.0) fl Gran % 92.2 H (50.0-68.0) % Lymph % (Auto) 4.8 L (22.0-35.0) % Cassia % (Auto) 3.0 (1.0-6.0) % Eos % (Auto) 0.0 L (1.5-5.0) % Baso % (Auto) 0.0 (0.0-3.0) % Gran # 19.48 H (1.4-6.5) Lymph # (Auto) 1.0 L (1.2-3.4) Cassia # (Auto) 0.6 (0.1-0.6) Eos # (Auto) 0.0 (0.0-0.7) Baso # (Auto) 0.01 (0.0-2.0) K/mm3 Sodium 146 (132-148) mmol/L Potassium 4.1 (3.6-5.0) mmol/L Chloride 116 H (98-107) mmol/L Carbon Dioxide 23 (21-33) mmol/L Anion Gap 12 (10-20) BUN 56 H (7-21) mg/dL Creatinine 1.7 H (0.7-1.2) mg/dl Est GFR ( Amer) 37 Est GFR (Non-Af Amer) 30 POC Glucose (mg/dL) 221 H (65-110) mg/dL Random Glucose 241 H (70-110) mg/dL Calcium 8.1 L (8.4-10.5) mg/dL Phosphorus 4.1 (2.5-4.5) mg/dL Magnesium 1.8 (1.7-2.2) mg/dL Total Bilirubin 0.4 (0.2-1.3) mg/dL AST 26 (14-36) U/L ALT 21 (7-56) U/L Alkaline Phosphatase 110 (38-126) U/L Total Protein 5.5 L (5.8-8.3) g/dL Albumin 2.4 L (3.0-4.8) g/dL Globulin 3.1 gm/dL Albumin/Globulin Ratio 0.8 L (1.1-1.8) 04/15/18 04/15/18 04/15/18 Range/Units 17:58 11:48 07:41 WBC (4.5-11.0) 10^3/uL RBC (3.5-6.1) 10^6/uL Hgb (12.0-16.0) g/dL Hct (36.0-48.0) % MCV (80.0-105.0) fl MCH (25.0-35.0) pg MCHC (31.0-37.0) g/dl RDW (11.5-14.5) % Plt Count (120.0-450.0) 10^3/uL MPV (7.0-11.0) fl Gran % (50.0-68.0) % Lymph % (Auto) (22.0-35.0) % Cassia % (Auto) (1.0-6.0) % Eos % (Auto) (1.5-5.0) % Baso % (Auto) (0.0-3.0) % Gran # (1.4-6.5) Lymph # (Auto) (1.2-3.4) Cassia # (Auto) (0.1-0.6) Eos # (Auto) (0.0-0.7) Baso # (Auto) (0.0-2.0) K/mm3 Sodium (132-148) mmol/L Potassium (3.6-5.0) mmol/L Chloride (98-107) mmol/L Carbon Dioxide (21-33) mmol/L Anion Gap (10-20) BUN (7-21) mg/dL Creatinine (0.7-1.2) mg/dl Est GFR ( Amer) Est GFR (Non-Af Amer) POC Glucose (mg/dL) 203 H 220 H 241 H (65-110) mg/dL Random Glucose (70-110) mg/dL Calcium (8.4-10.5) mg/dL Phosphorus (2.5-4.5) mg/dL Magnesium (1.7-2.2) mg/dL Total Bilirubin (0.2-1.3) mg/dL AST (14-36) U/L ALT (7-56) U/L Alkaline Phosphatase (38-126) U/L Total Protein (5.8-8.3) g/dL Albumin (3.0-4.8) g/dL Globulin gm/dL Albumin/Globulin Ratio (1.1-1.8) 04/14/18 04/14/18 04/14/18 Range/Units 21:29 13:57 08:00 WBC (4.5-11.0) 10^3/uL RBC (3.5-6.1) 10^6/uL Hgb (12.0-16.0) g/dL Hct (36.0-48.0) % MCV (80.0-105.0) fl MCH (25.0-35.0) pg MCHC (31.0-37.0) g/dl RDW (11.5-14.5) % Plt Count (120.0-450.0) 10^3/uL MPV (7.0-11.0) fl Gran % (50.0-68.0) % Lymph % (Auto) (22.0-35.0) % Cassia % (Auto) (1.0-6.0) % Eos % (Auto) (1.5-5.0) % Baso % (Auto) (0.0-3.0) % Gran # (1.4-6.5) Lymph # (Auto) (1.2-3.4) Cassia # (Auto) (0.1-0.6) Eos # (Auto) (0.0-0.7) Baso # (Auto) (0.0-2.0) K/mm3 Sodium (132-148) mmol/L Potassium (3.6-5.0) mmol/L Chloride (98-107) mmol/L Carbon Dioxide (21-33) mmol/L Anion Gap (10-20) BUN (7-21) mg/dL Creatinine (0.7-1.2) mg/dl Est GFR ( Amer) Est GFR (Non-Af Amer) POC Glucose (mg/dL) 294 H 225 H 242 H (65-110) mg/dL Random Glucose (70-110) mg/dL Calcium (8.4-10.5) mg/dL Phosphorus (2.5-4.5) mg/dL Magnesium (1.7-2.2) mg/dL Total Bilirubin (0.2-1.3) mg/dL AST (14-36) U/L ALT (7-56) U/L Alkaline Phosphatase (38-126) U/L Total Protein (5.8-8.3) g/dL Albumin (3.0-4.8) g/dL Globulin gm/dL Albumin/Globulin Ratio (1.1-1.8) 04/13/18 04/13/18 04/13/18 Range/Units 22:12 15:32 12:01 WBC (4.5-11.0) 10^3/uL RBC (3.5-6.1) 10^6/uL Hgb (12.0-16.0) g/dL Hct (36.0-48.0) % MCV (80.0-105.0) fl MCH (25.0-35.0) pg MCHC (31.0-37.0) g/dl RDW (11.5-14.5) % Plt Count (120.0-450.0) 10^3/uL MPV (7.0-11.0) fl Gran % (50.0-68.0) % Lymph % (Auto) (22.0-35.0) % Cassia % (Auto) (1.0-6.0) % Eos % (Auto) (1.5-5.0) % Baso % (Auto) (0.0-3.0) % Gran # (1.4-6.5) Lymph # (Auto) (1.2-3.4) Cassia # (Auto) (0.1-0.6) Eos # (Auto) (0.0-0.7) Baso # (Auto) (0.0-2.0) K/mm3 Sodium (132-148) mmol/L Potassium (3.6-5.0) mmol/L Chloride (98-107) mmol/L Carbon Dioxide (21-33) mmol/L Anion Gap (10-20) BUN (7-21) mg/dL Creatinine (0.7-1.2) mg/dl Est GFR ( Amer) Est GFR (Non-Af Amer) POC Glucose (mg/dL) 220 H 226 H 224 H (65-110) mg/dL Random Glucose (70-110) mg/dL Calcium (8.4-10.5) mg/dL Phosphorus (2.5-4.5) mg/dL Magnesium (1.7-2.2) mg/dL Total Bilirubin (0.2-1.3) mg/dL AST (14-36) U/L ALT (7-56) U/L Alkaline Phosphatase (38-126) U/L Total Protein (5.8-8.3) g/dL Albumin (3.0-4.8) g/dL Globulin gm/dL Albumin/Globulin Ratio (1.1-1.8) 04/13/18 Range/Units 08:08 WBC (4.5-11.0) 10^3/uL RBC (3.5-6.1) 10^6/uL Hgb (12.0-16.0) g/dL Hct (36.0-48.0) % MCV (80.0-105.0) fl MCH (25.0-35.0) pg MCHC (31.0-37.0) g/dl RDW (11.5-14.5) % Plt Count (120.0-450.0) 10^3/uL MPV (7.0-11.0) fl Gran % (50.0-68.0) % Lymph % (Auto) (22.0-35.0) % Cassia % (Auto) (1.0-6.0) % Eos % (Auto) (1.5-5.0) % Baso % (Auto) (0.0-3.0) % Gran # (1.4-6.5) Lymph # (Auto) (1.2-3.4) Cassia # (Auto) (0.1-0.6) Eos # (Auto) (0.0-0.7) Baso # (Auto) (0.0-2.0) K/mm3 Sodium (132-148) mmol/L Potassium (3.6-5.0) mmol/L Chloride (98-107) mmol/L Carbon Dioxide (21-33) mmol/L Anion Gap (10-20) BUN (7-21) mg/dL Creatinine (0.7-1.2) mg/dl Est GFR ( Amer) Est GFR (Non-Af Amer) POC Glucose (mg/dL) 221 H (65-110) mg/dL Random Glucose (70-110) mg/dL Calcium (8.4-10.5) mg/dL Phosphorus (2.5-4.5) mg/dL Magnesium (1.7-2.2) mg/dL Total Bilirubin (0.2-1.3) mg/dL AST (14-36) U/L ALT (7-56) U/L Alkaline Phosphatase (38-126) U/L Total Protein (5.8-8.3) g/dL Albumin (3.0-4.8) g/dL Globulin gm/dL Albumin/Globulin Ratio (1.1-1.8) Laboratory Results - last 24 hr 04/13/18 04/13/18 04/13/18 08:08 12:01 15:32 WBC RBC Hgb Hct MCV MCH MCHC RDW Plt Count MPV Gran % Lymph % (Auto) Cassia % (Auto) Eos % (Auto) Baso % (Auto) Gran # Lymph # (Auto) Cassia # (Auto) Eos # (Auto) Baso # (Auto) Sodium Potassium Chloride Carbon Dioxide Anion Gap BUN Creatinine Est GFR ( Amer) Est GFR (Non-Af Amer) POC Glucose (mg/dL) 221 H 224 H 226 H Random Glucose Calcium Phosphorus Magnesium Total Bilirubin AST ALT Alkaline Phosphatase Total Protein Albumin Globulin Albumin/Globulin Ratio 04/13/18 04/14/18 04/14/18 22:12 08:00 13:57 WBC RBC Hgb Hct MCV MCH MCHC RDW Plt Count MPV Gran % Lymph % (Auto) Cassia % (Auto) Eos % (Auto) Baso % (Auto) Gran # Lymph # (Auto) Cassia # (Auto) Eos # (Auto) Baso # (Auto) Sodium Potassium Chloride Carbon Dioxide Anion Gap BUN Creatinine Est GFR ( Amer) Est GFR (Non-Af Amer) POC Glucose (mg/dL) 220 H 242 H 225 H Random Glucose Calcium Phosphorus Magnesium Total Bilirubin AST ALT Alkaline Phosphatase Total Protein Albumin Globulin Albumin/Globulin Ratio 04/14/18 04/15/18 04/15/18 21:29 07:41 11:48 WBC RBC Hgb Hct MCV MCH MCHC RDW Plt Count MPV Gran % Lymph % (Auto) Cassia % (Auto) Eos % (Auto) Baso % (Auto) Gran # Lymph # (Auto) Cassia # (Auto) Eos # (Auto) Baso # (Auto) Sodium Potassium Chloride Carbon Dioxide Anion Gap BUN Creatinine Est GFR ( Amer) Est GFR (Non-Af Amer) POC Glucose (mg/dL) 294 H 241 H 220 H Random Glucose Calcium Phosphorus Magnesium Total Bilirubin AST ALT Alkaline Phosphatase Total Protein Albumin Globulin Albumin/Globulin Ratio 04/15/18 04/16/18 04/16/18 17:58 03:43 05:59 WBC RBC Hgb Hct MCV MCH MCHC RDW Plt Count MPV Gran % Lymph % (Auto) Cassia % (Auto) Eos % (Auto) Baso % (Auto) Gran # Lymph # (Auto) Cassia # (Auto) Eos # (Auto) Baso # (Auto) Sodium 146 Potassium 4.1 Chloride 116 H Carbon Dioxide 23 Anion Gap 12 BUN 56 H Creatinine 1.7 H Est GFR ( Amer) 37 Est GFR (Non-Af Amer) 30 POC Glucose (mg/dL) 203 H 221 H Random Glucose 241 H Calcium 8.1 L Phosphorus 4.1 Magnesium 1.8 Total Bilirubin 0.4 AST 26 ALT 21 Alkaline Phosphatase 110 Total Protein 5.5 L Albumin 2.4 L Globulin 3.1 Albumin/Globulin Ratio 0.8 L 04/16/18 05:59 WBC 21.2 H RBC 3.40 L Hgb 9.2 L Hct 29.5 L MCV 86.8 MCH 27.1 MCHC 31.2 RDW 19.8 H Plt Count 143 MPV 11.2 H Gran % 92.2 H Lymph % (Auto) 4.8 L Cassia % (Auto) 3.0 Eos % (Auto) 0.0 L Baso % (Auto) 0.0 Gran # 19.48 H Lymph # (Auto) 1.0 L Cassia # (Auto) 0.6 Eos # (Auto) 0.0 Baso # (Auto) 0.01 Sodium Potassium Chloride Carbon Dioxide Anion Gap BUN Creatinine Est GFR ( Amer) Est GFR (Non-Af Amer) POC Glucose (mg/dL) Random Glucose Calcium Phosphorus Magnesium Total Bilirubin AST ALT Alkaline Phosphatase Total Protein Albumin Globulin Albumin/Globulin Ratio EKG/Cardiology Studies: Cardiology / EKG Studies 04/15/18 07:34 EKG [ELECTROCARDIOGRAM] Routine Comment: Reason For Exam: follow up ekg Fingerstick Blood Sugar Results: 221 Review of Systems - Review of Systems Review of Systems: per [facility] Critical Care Progress Note - Nutrition Nutrition: Nutrition Category Date Time Status Liquid Diet [DIET] Diets 04/16/18 Breakfast Ordered Assessment/Plan - Assessment and Plan (Free Text) Assessment: 62F with morbid obesity rectal adenocarcinoma s/p abdominal perineal resection, radiation, chemotherapy and 2 colostomies, CAD, hypertension, congestive heart failure, 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 She was subsequently found to have SBO on CT scan, and is s/p exploratory laparotomy with lysis of adhesion, ventral hernia repiar, mucus fistula and colostomy revision. She was sent back to ICU Plan: Neuro: AxO Following commands. Tolerated extubation Reorient as necessary Cardiovascular: Hypertensive emergency Heparin drip on hold post-operatively. Resume per surgery recs No longer NPO. Transition to oral antihypertensives. Oral hydralazine,imdur clonidine patch Clear liquid diet per surgery recs Pulm levalbuterol arformoterol budesonide solu-medrol 20mg IVPq12 significant positive fluid balance vascular congestion on xray avoid positive fluid balance hyperchloremia, stop NS GI: colostomy draining brown stool IVETTE draining serosanguinous fluid, 200cc over 24 hrs Abdominal binder removed per surgery recs dressings in place Clear liquid diet per surgery recs abdominal exam appropriate for post-operative. pain is controlled /Renal avoid nephrotoxins ID: Leukocytosis likely related to surgery currently on cefepime/flagyl if fever/leukocytosis occurs, may proceed with septic workup Endo: maintain euglycemia within 140-180 per [employer] trial Dispo: Pt is doing well this am. She reports complaints of abdominal pain controlled with analgesics. She is no longer NPO, nicardipine drip discontinued, patient transitioned to oral anti-hypertensives. Heparin drip to be started based on surgery recs. Vital signs are stable. Pt no longer requires ICU care. Stable for transfer to telemetry floor. DVT/GI PPx: Hep SC/Protonix Case seen, examined and discussed with attending physician, Dr. Sweet <Lawson Sweet - Last Filed: 04/16/18 17:54> CCU Objective - Vital Signs / Intake & Output Vital Signs (Last 4 hours): Vital Signs Pulse Resp BP 04/16/18 17:26 79 04/16/18 17:20 78 21 04/16/18 17:10 79 23 04/16/18 17:00 81 25 H 158/66 H 04/16/18 16:50 84 24 04/16/18 16:40 75 45 H 04/16/18 16:30 73 46 H 135/41 L 04/16/18 16:20 73 66 H 04/16/18 16:10 74 20 04/16/18 16:00 79 22 141/49 L 04/16/18 15:50 80 27 H 04/16/18 15:40 82 25 H 04/16/18 15:30 85 25 H 141/59 L 04/16/18 15:23 82 16 176/137 H 04/16/18 15:22 82 23 04/16/18 15:10 88 16 04/16/18 15:00 85 14 04/16/18 14:50 82 23 04/16/18 14:40 84 46 H 04/16/18 14:30 77 28 H 04/16/18 14:20 81 23 04/16/18 14:10 81 18 04/16/18 14:00 95 H Intake and Output (Last 8hrs): Intake & Output 04/16/18 04/16/18 04/16/18 06:59 14:59 22:59 Intake Total 1250 Output Total 1170 Balance 80 Intake: IV 1200 RCWP 800 Oral 50 Output: Gastric Amount 500 Stomach 500 Drainage 70 Right Abdomen 70 Urine 600 Urethral (Linares) 600 Other: # Bowel Movements 0 - Medications Active Medications: Active Medications Generic Name Dose Route Start Last Admin Trade Name Freq PRN Reason Stop Dose Admin Amlodipine Besylate 10 mg 04/16/18 10:00 04/16/18 10:34 Norvasc PO 10 mg DAILY JR Administration Arformoterol Tartrate 15 mcg 04/10/18 08:00 04/16/18 07:36 Brovana IH 15 mcg [id number] JR Administration Budesonide 0.5 mg 04/10/18 08:00 04/16/18 07:36 Pulmicort Respules IH 0.5 mg [id number] JR Administration Clonidine HCl 1 patch 04/11/18 16:15 04/11/18 18:17 Catapres-Tts3 0.3 Mg/24 Hr TD 1 patch Q7D@1000 JR Administration Docusate Sodium 100 mg 04/11/18 14:00 04/16/18 09:00 Colace PO Not Given TID JR Furosemide 40 mg 04/16/18 12:15 Lasix PO DAILY [facility] Hydralazine HCl 50 mg 04/12/18 10:00 04/16/18 10:41 Apresoline PO 50 mg TID JR Administration Hydralazine HCl 10 mg 04/15/18 13:41 Apresoline IVP Q6 PRN for sbp>160 Hydromorphone HCl 0.5 mg 04/13/18 09:52 04/16/18 15:36 Dilaudid IVP 0.5 mg Q2H PRN Administration Pain, Mild (1-3) Hydromorphone HCl 1 mg 04/13/18 09:53 04/16/18 08:14 Dilaudid IVP 1 mg Q4H PRN Administration Pain, severe (8-10) Heparin Sodium/Sodium Chloride 25,000 units in 250 mls @ 16.346 mls/hr 14:15 04/13/18 23:51 Heparin 16859 Units/250ml 1/2 Normal Saline IV Not Given .[id number] JR Protocol 12 UNITS/KG/HR Cefepime HCl 2 gm in 100 mls @ 25 mls/hr 04/13/18 10:00 04/16/18 10:36 Maxipime 2gm IVPB 04/18/18 10:01 25 mls/hr DAILY JR Administration Protocol Metronidazole 500 mg in 100 mls @ 100 mls/hr 04/15/18 07:15 04/16/18 05:44 Flagyl IVPB 100 mls/hr Q8 JR Administration Protocol Insulin Human Regular 0 units 04/15/18 08:00 04/16/18 09:15 Humulin R Low SC 2 u Q6H JR Administration Protocol Isosorbide Mononitrate 30 mg 04/12/18 10:00 04/16/18 10:38 Imdur Er PO 30 mg DAILY JR Administration Levalbuterol HCl 1.25 mg 04/11/18 14:03 04/16/18 13:42 Xopenex IH 1.25 mg [id number] PRN Administration Shortness of Breath Methylprednisolone 20 mg 04/15/18 22:00 04/16/18 10:30 Solu-Medrol IVP 20 mg Q12 JR Administration Metoprolol Tartrate 50 mg 04/16/18 10:00 04/16/18 10:40 Lopressor PO 50 mg BID JR Administration Ondansetron HCl 4 mg 04/10/18 16:21 04/11/18 12:10 Zofran Inj IVP 4 mg Q6H PRN Administration Nausea/Vomiting Pantoprazole Sodium 40 mg 04/10/18 10:00 04/16/18 10:33 Protonix Inj IVP 40 mg DAILY JR Administration - Patient Studies Lab Studies: Microbiology Studies 04/11/18 10:30 Blood Culture - Final Blood-Venous NO GROWTH AFTER 5 DAYS Gram Stain - Final TEST NOT PERFORMED 04/11/18 10:00 Blood Culture - Final Blood-Venous NO GROWTH AFTER 5 DAYS Gram Stain - Final TEST NOT PERFORMED Lab Studies 04/16/18 04/16/18 04/16/18 Range/Units 11:22 05:59 05:59 WBC 21.2 H (4.5-11.0) 10^3/uL RBC 3.40 L (3.5-6.1) 10^6/uL Hgb 9.2 L (12.0-16.0) g/dL Hct 29.5 L (36.0-48.0) % MCV 86.8 (80.0-105.0) fl MCH 27.1 (25.0-35.0) pg MCHC 31.2 (31.0-37.0) g/dl RDW 19.8 H (11.5-14.5) % Plt Count 143 (120.0-450.0) 10^3/uL MPV 11.2 H (7.0-11.0) fl Gran % 92.2 H (50.0-68.0) % Lymph % (Auto) 4.8 L (22.0-35.0) % Cassia % (Auto) 3.0 (1.0-6.0) % Eos % (Auto) 0.0 L (1.5-5.0) % Baso % (Auto) 0.0 (0.0-3.0) % Gran # 19.48 H (1.4-6.5) Lymph # (Auto) 1.0 L (1.2-3.4) Cassia # (Auto) 0.6 (0.1-0.6) Eos # (Auto) 0.0 (0.0-0.7) Baso # (Auto) 0.01 (0.0-2.0) K/mm3 Sodium 146 (132-148) mmol/L Potassium 4.1 (3.6-5.0) mmol/L Chloride 116 H (98-107) mmol/L Carbon Dioxide 23 (21-33) mmol/L Anion Gap 12 (10-20) BUN 56 H (7-21) mg/dL Creatinine 1.7 H (0.7-1.2) mg/dl Est GFR ( Amer) 37 Est GFR (Non-Af Amer) 30 POC Glucose (mg/dL) 212 H (65-110) mg/dL Random Glucose 241 H (70-110) mg/dL Calcium 8.1 L (8.4-10.5) mg/dL Phosphorus 4.1 (2.5-4.5) mg/dL Magnesium 1.8 (1.7-2.2) mg/dL Total Bilirubin 0.4 (0.2-1.3) mg/dL AST 26 (14-36) U/L ALT 21 (7-56) U/L Alkaline Phosphatase 110 (38-126) U/L Total Protein 5.5 L (5.8-8.3) g/dL Albumin 2.4 L (3.0-4.8) g/dL Globulin 3.1 gm/dL Albumin/Globulin Ratio 0.8 L (1.1-1.8) Crossmatch 04/16/18 04/15/18 04/15/18 Range/Units 03:43 17:58 11:48 WBC (4.5-11.0) 10^3/uL RBC (3.5-6.1) 10^6/uL Hgb (12.0-16.0) g/dL Hct (36.0-48.0) % MCV (80.0-105.0) fl MCH (25.0-35.0) pg MCHC (31.0-37.0) g/dl RDW (11.5-14.5) % Plt Count (120.0-450.0) 10^3/uL MPV (7.0-11.0) fl Gran % (50.0-68.0) % Lymph % (Auto) (22.0-35.0) % Cassia % (Auto) (1.0-6.0) % Eos % (Auto) (1.5-5.0) % Baso % (Auto) (0.0-3.0) % Gran # (1.4-6.5) Lymph # (Auto) (1.2-3.4) Cassia # (Auto) (0.1-0.6) Eos # (Auto) (0.0-0.7) Baso # (Auto) (0.0-2.0) K/mm3 Sodium (132-148) mmol/L Potassium (3.6-5.0) mmol/L Chloride (98-107) mmol/L Carbon Dioxide (21-33) mmol/L Anion Gap (10-20) BUN (7-21) mg/dL Creatinine (0.7-1.2) mg/dl Est GFR ( Amer) Est GFR (Non-Af Amer) POC Glucose (mg/dL) 221 H 203 H 220 H (65-110) mg/dL Random Glucose (70-110) mg/dL Calcium (8.4-10.5) mg/dL Phosphorus (2.5-4.5) mg/dL Magnesium (1.7-2.2) mg/dL Total Bilirubin (0.2-1.3) mg/dL AST (14-36) U/L ALT (7-56) U/L Alkaline Phosphatase (38-126) U/L Total Protein (5.8-8.3) g/dL Albumin (3.0-4.8) g/dL Globulin gm/dL Albumin/Globulin Ratio (1.1-1.8) Crossmatch 04/13/18 Range/Units 14:00 WBC (4.5-11.0) 10^3/uL RBC (3.5-6.1) 10^6/uL Hgb (12.0-16.0) g/dL Hct (36.0-48.0) % MCV (80.0-105.0) fl MCH (25.0-35.0) pg MCHC (31.0-37.0) g/dl RDW (11.5-14.5) % Plt Count (120.0-450.0) 10^3/uL MPV (7.0-11.0) fl Gran % (50.0-68.0) % Lymph % (Auto) (22.0-35.0) % Cassia % (Auto) (1.0-6.0) % Eos % (Auto) (1.5-5.0) % Baso % (Auto) (0.0-3.0) % Gran # (1.4-6.5) Lymph # (Auto) (1.2-3.4) Cassia # (Auto) (0.1-0.6) Eos # (Auto) (0.0-0.7) Baso # (Auto) (0.0-2.0) K/mm3 Sodium (132-148) mmol/L Potassium (3.6-5.0) mmol/L Chloride (98-107) mmol/L Carbon Dioxide (21-33) mmol/L Anion Gap (10-20) BUN (7-21) mg/dL Creatinine (0.7-1.2) mg/dl Est GFR ( Amer) Est GFR (Non-Af Amer) POC Glucose (mg/dL) (65-110) mg/dL Random Glucose (70-110) mg/dL Calcium (8.4-10.5) mg/dL Phosphorus (2.5-4.5) mg/dL Magnesium (1.7-2.2) mg/dL Total Bilirubin (0.2-1.3) mg/dL AST (14-36) U/L ALT (7-56) U/L Alkaline Phosphatase (38-126) U/L Total Protein (5.8-8.3) g/dL Albumin (3.0-4.8) g/dL Globulin gm/dL Albumin/Globulin Ratio (1.1-1.8) Crossmatch See Detail Laboratory Results - last 24 hr 04/13/18 04/15/18 04/15/18 14:00 11:48 17:58 WBC RBC Hgb Hct MCV MCH MCHC RDW Plt Count MPV Gran % Lymph % (Auto) Cassia % (Auto) Eos % (Auto) Baso % (Auto) Gran # Lymph # (Auto) Cassia # (Auto) Eos # (Auto) Baso # (Auto) Sodium Potassium Chloride Carbon Dioxide Anion Gap BUN Creatinine Est GFR ( Amer) Est GFR (Non-Af Amer) POC Glucose (mg/dL) 220 H 203 H Random Glucose Calcium Phosphorus Magnesium Total Bilirubin AST ALT Alkaline Phosphatase Total Protein Albumin Globulin Albumin/Globulin Ratio Crossmatch See Detail 04/16/18 04/16/18 04/16/18 03:43 05:59 05:59 WBC 21.2 H RBC 3.40 L Hgb 9.2 L Hct 29.5 L MCV 86.8 MCH 27.1 MCHC 31.2 RDW 19.8 H Plt Count 143 MPV 11.2 H Gran % 92.2 H Lymph % (Auto) 4.8 L Cassia % (Auto) 3.0 Eos % (Auto) 0.0 L Baso % (Auto) 0.0 Gran # 19.48 H Lymph # (Auto) 1.0 L Cassia # (Auto) 0.6 Eos # (Auto) 0.0 Baso # (Auto) 0.01 Sodium 146 Potassium 4.1 Chloride 116 H Carbon Dioxide 23 Anion Gap 12 BUN 56 H Creatinine 1.7 H Est GFR ( Amer) 37 Est GFR (Non-Af Amer) 30 POC Glucose (mg/dL) 221 H Random Glucose 241 H Calcium 8.1 L Phosphorus 4.1 Magnesium 1.8 Total Bilirubin 0.4 AST 26 ALT 21 Alkaline Phosphatase 110 Total Protein 5.5 L Albumin 2.4 L Globulin 3.1 Albumin/Globulin Ratio 0.8 L Crossmatch 04/16/18 11:22 WBC RBC Hgb Hct MCV MCH MCHC RDW Plt Count MPV Gran % Lymph % (Auto) Cassia % (Auto) Eos % (Auto) Baso % (Auto) Gran # Lymph # (Auto) Cassia # (Auto) Eos # (Auto) Baso # (Auto) Sodium Potassium Chloride Carbon Dioxide Anion Gap BUN Creatinine Est GFR ( Amer) Est GFR (Non-Af Amer) POC Glucose (mg/dL) 212 H Random Glucose Calcium Phosphorus Magnesium Total Bilirubin AST ALT Alkaline Phosphatase Total Protein Albumin Globulin Albumin/Globulin Ratio Crossmatch Critical Care Progress Note - Nutrition Nutrition: Nutrition Category Date Time Status Liquid Diet [DIET] Diets 04/16/18 Breakfast Ordered Addendum Addendum: 04/16/18 17:54 ICU Attending Addendum Patent seen and examined with housestaff. Agree with progress note with following additions/exceptions: ICU Attending Addendum Patient seen and examined. Case reviewed on round with housestaff. 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 Now on cardizem drip. Cardio managing htn and transition off drip. NSTEMI likely exacerbated by elevated BP and tachycardia. Hep drip ok with durg CXR shows BL patchy infiltrates with upper lobe predominance. This findings were seen on CT scan on 02/12/2018. 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 As an outpatient she needs pulmonary follow-up and workup for ILD. She would benefit from bronchoscopy with biopsy and BAL as well. SUMMER - she should be on CPAP QHS. She may also have obesity hypoventilation syndrome for which CPAP is indicated as well. Abx as per ID Dilaudid PRN for pain PPI for GI ppx Rest of care as above Lawson Sweet MD Pulmonary Critical Care and Sleep Medicine
--- NOTE | 2018-04-16 08:25 | CP.PCM.PN ---
Subjective - Date & Time of Evaluation Date of Evaluation: 04/16/18 Time of Evaluation: 08:25 - Subjective Subjective: Hematology/Oncology Progress Note Patient seen and assessed at bedside in ICU. No acute events noted overnight. Patient reports that her abdominal pain has improved. She denies any other complaints at this time including fevers, chills, headache, chest pain, SOB, cough, N/V/D/C, changes in urine output, skin changes or any numbness/tingling of any extremity. Objective - Vital Signs/Intake and Output Vital Signs (last 24 hours): Temp Pulse Resp BP Pulse Ox 98.5 F 84 27 H 159/59 H 99 04/16/18 06:00 04/16/18 06:20 04/16/18 06:20 04/16/18 05:00 04/16/18 06:20 Intake and Output: 04/16/18 04/16/18 06:59 18:59 Intake Total 1450 Output Total 1170 Balance 280 - Medications Medications: Current Medications Arformoterol Tartrate (Brovana) 15 mcg IH [id number] [facility] Last Admin: 04/16/18 07:36 Dose: 15 mcg Budesonide (Pulmicort Respules) 0.5 mg IH [id number] [facility] Last Admin: 04/16/18 07:36 Dose: 0.5 mg Clonidine HCl (Catapres-Tts3 0.3 Mg/24 Hr) 1 patch TD Q7D@1000 [facility] Last Admin: 04/11/18 18:17 Dose: 1 patch Docusate Sodium (Colace) 100 mg PO TID [facility] Last Admin: 04/15/18 14:48 Dose: Not Given Heparin Sodium (Porcine) (Heparin) 5,000 units SC Q8 [facility]; Protocol Last Admin: 04/16/18 05:44 Dose: 5,000 units Hydralazine HCl (Apresoline) 50 mg PO TID [facility] Last Admin: 04/15/18 14:49 Dose: Not Given Hydralazine HCl (Apresoline) 10 mg IVP Q6 PRN PRN Reason: for sbp>160 Hydromorphone HCl (Dilaudid) 0.5 mg IVP Q2H PRN PRN Reason: Pain, Mild (1-3) Last Admin: 04/16/18 04:37 Dose: 0.5 mg Hydromorphone HCl (Dilaudid) 1 mg IVP Q4H PRN PRN Reason: Pain, severe (8-10) Last Admin: 04/16/18 03:21 Dose: 1 mg Heparin Sodium/Sodium Chloride (Heparin 66830 Units/250ml 1/2 Normal Saline) 25,000 units in 250 mls @ 16.346 mls/hr IV .[id number] JR; Protocol Last Admin: 04/13/18 23:51 Dose: Not Given Cefepime HCl (Maxipime 2gm) 2 gm in 100 mls @ 25 mls/hr IVPB DAILY [facility]; Protocol Stop: 04/18/18 10:01 Last Admin: 04/15/18 10:45 Dose: 25 mls/hr Metronidazole (Flagyl) 500 mg in 100 mls @ 100 mls/hr IVPB Q8 JR; Protocol Last Admin: 04/16/18 05:44 Dose: 100 mls/hr Nicardipine HCl (Cardene Iv Premix) 20 mg in 200 mls @ 50 mls/hr IV .Q4H PRN; Protocol PRN Reason: TITRATE PER MD ORDER Last Admin: 04/16/18 06:05 Dose: 5 mg/hr, 50 mls/hr Calcium Gluconate 1,000 mg/ (Sodium Chloride) 110 mls @ 110 mls/hr IVPB ONCE ONE Stop: 04/16/18 08:31 Insulin Human Regular (Humulin R Low) 0 units SC Q6H JR; Protocol Last Admin: 04/16/18 04:50 Dose: Not Given Isosorbide Mononitrate (Imdur Er) 30 mg PO DAILY [facility] Last Admin: 04/15/18 10:46 Dose: Not Given Levalbuterol HCl (Xopenex) 1.25 mg IH [id number] PRN PRN Reason: Shortness of Breath Methylprednisolone (Solu-Medrol) 20 mg IVP Q12 [facility] Last Admin: 04/15/18 21:17 Dose: 20 mg Metoprolol Tartrate (Lopressor) 5 mg IVP Q6H [facility] Last Admin: 04/16/18 04:52 Dose: 5 mg Ondansetron HCl (Zofran Inj) 4 mg IVP Q6H PRN PRN Reason: Nausea/Vomiting Last Admin: 11/08/18 12:10 Dose: 4 mg Pantoprazole Sodium (Protonix Inj) 40 mg IVP DAILY JR Last Admin: 04/15/18 10:49 Dose: 40 mg - Labs Labs: 04/16/18 05:59 04/16/18 05:59 PT 19.0 SECONDS (9.4-12.5) H 04/14/18 05:30 INR 1.64 04/14/18 05:30 APTT 28.9 Seconds (25.1-36.5) 04/14/18 05:30 - Additional Findings Additional findings: - Constitutional Appears: Non-toxic, No Acute Distress - Head Exam Head Exam: ATRAUMATIC, NORMOCEPHALIC - Eye Exam Eye Exam: EOMI, Normal appearance - ENT Exam ENT Exam: Mucous Membranes Moist - Neck Exam Neck exam: Positive for: Full Rom, Normal Inspection. Negative for: Lymphadenopathy, Meningismus, Tenderness, Thyromegaly - Respiratory Exam Respiratory Exam: Clear to Auscultation Bilateral, NORMAL BREATHING PATTERN. absent: Accessory Muscle Use, Decreased Breath Sounds, Rales, Rhonchi, Wheezes, Respiratory Distress - Cardiovascular Exam Cardiovascular Exam: REGULAR RHYTHM, RRR, +S1, +S2. 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 Hematology/Oncology was consulted for her history of rectal adenocarcinoma and anemia. Plan: -H/H (04/16): 9.2/29.5 (Baseline: 9.5-10.0) -Iron Studies reviewed -Vitamin B12/Folate/Lead: within normal limits -Anemia likely secondary to LANEY and CKD -S/P transfusion of two units of pRBC's -S/P one dose of IV Venofer and SC Anaresp -Continue to monitor with daily CBC's -Continue management as per Surgery, GI, Cardiology and Primary teams -Further recommendations as per Dr. Faye Patient seen and case discussed with attending, Dr. Faye. Jeff Perez PGY2
[2018-04-16] MEDS ORDERED: Vancomycin 1gm in NS 250ml 1 GM/250 ML BAG IVPB STA (08:48)
--- NOTE | 2018-04-16 09:04 | OP ---
PROCEDURE DATE: 04/14/2018 PREOPERATIVE DIAGNOSES: Small bowel obstruction with a large ventral hernia with multiple premorbid medical conditions. SURGEON: Osmar Mckeon MD. BOX MAKER WOOD: Raven Wilkinson DO. DESCRIPTION OF PROCEDURE: In the operating room, patient was identified by name, name of procedure, laterality and my jorge. Having had a long discussion with the patient and the son indicating the tremendous medical comorbidities. Multiple doctors have seen her. Dr. Dutta and , both of which considered her a prohibited risk, however, small bowel resection is re-demonstrated on a repeat CAT scan and with the understanding of the risks, we went to the OR. In the operating room, patient was dressed with Betadine followed by the Betadine . After the successful time-out, the abdomen was entered through the upper part and immediately identifying the hernia sac. The hernia sac was intimately involved with the transverse colostomy and going circumferentially around the sac, we were able to separate the ostomy from the skin, however, we did enter lumen on the proximal end. This colostomy was then from the hernia sac, eventually it was divided and the plan was to widely separate them. There was no contamination. The abdomen was copiously irrigated and dried. Small bowel was relatively uninvolved except in the lower part of the incision. This was opened. The small bowel was not entered. It was lysed and unkinked and there was good flow through it. Although, there might have been a mild stricture. Small bowel was placed back in the abdomen. A ostomy was fashioned in the right upper quadrant with the proximal colon, left upper quadrant with the mucous fistula. Large piece of mesh was placed, the largest we had. There was some overlap with the 10 cm hernia was closed with a 10 cm piece of mesh. Multiple mattress parachute stitches were placed bilaterally to give a good repair. Dewayne was placed in the subcutaneous tissue and skin was closed with Vicryl followed by donita and with multiple retention like nylon was placed. Binder was placed. Patient was taken to the ICU in good condition after the sponge and needles counts declared correct. Osmar Mckeon MD [facility] # [id number]
--- NOTE | 2018-04-16 09:15 | PN ---
DATE: 04/14/2018 SUBJECTIVE: The patient, Pedro, seems status post open surgery for incarcerated hernia. The patient's surgery was done on Sunday, and the patient in remission because of the continuous vomiting and continuous abdominal pain. The patient stood now. The patient is status post surgery, intubated, seems stable hemodynamically on the vent. Son next to the bedside, discussed the plan of extubation depending on the patient's progress and response. PHYSICAL EXAMINATION: VITAL SIGNS: Currently on 04/14/2018, her vital signs are as follows; temperature 98.1, heart rate 74, blood pressure 163/60, respirations 23. HEAD AND NECK: Normal. CHEST: Bilaterally clear. CARDIAC: First sound and second sounds are normal. ABDOMEN: Covered with dressing and drains. EXTREMITIES: No edema. NEUROLOGIC: The patient is heavily sedated on a ventilator and IV drips or Fentanyl. LABORATORY STUDY: On 04/14 shows white count 9.8, hemoglobin is 8.6, hematocrit 28.7, and platelets 184. Her chemistries showed sodium 147, potassium 5, chloride 118, bicarb 26, BUN 59, creatinine 1.7, and platelets 239. Her magnesium level was 1.6. IMPRESSION AND PLAN: 1. Status post abdominal surgery, hernia reduction of the intestinal and gastroduodenal contents back to the abdominal cavity and closure of the hernia. The patient is currently on a vent, sedated. 2. Hypertension, controlled, still on multiple IV drips. She is currently on hydralazine 50 mg p.o. t.i.d. She was on IV labetalol, which has been switched. Currently, on insulin coverage, isosorbide 30 mg, labetalol drip, Protonix 40 mg, IV fluid, Solu-Medrol 30 IV every 12, Dilaudid IV 1 mg every 4 hours p.r.n., Colace 100 b.i.d., clonidine 0.3 mg patch every once a week, Brovana and Pulmicort nebulizers treatment in addition to IV Solu-Medrol 30. We will continue hydralazine 50 t.i.d., as the patient is able to take anything by mouth. Continue vancomycin. Continue meropenem. Followup will be with ID specialist. 3. Coronary artery disease, history of non-ST elevation myocardial infarction. Continue IV heparin. Continue beta-joseph. Cardiology, Dr. Guerrero. 4. Severe back pain. Continue Dilaudid p.r.n., and currently, the patient is on propofol drip at 6 mcg/kg/min. 5. Diabetes. The patient is not eating much. Continue insulin. 6. Obstructive sleep apnea, chronic obstructive lung disease, severe obesity. Continue current support and follow up clinically. Elroy Florian MD
[2018-04-16] MEDS: MethylPREDNISolone 40 mg Vial IVP SCH ×2 (10:30→21:46)
[2018-04-16] MEDS: Cefepime IV 2 gm in NS 2 GM/100 ML BAG IVPB SCH (10:36)
--- NOTE | 2018-04-16 11:58 | PN ---
DATE: 04/15/2018 SUBJECTIVE: Pedro Guevara is a 62-year-old female complained of abdominal pain status post surgery. She is extubated. She is on 16/6 BiPAP and 30% oxygen. She is doing well pulmonary ji, hemodynamically she is better. She is on nicardipine IV drips. Her blood pressure is 153/54. The patient is hopeful of , but she is able to communicate under the mask and she complained of pain, otherwise stable. PHYSICAL EXAMINATION: VITAL SIGNS: Blood pressure 153/54, heart rate is 90, temperature 98, respiration saturation in mid 90s. HEAD AND NECK: Normal. No JVD, no thyromegaly. CHEST: Clear, diminished breath sounds bilaterally. CARDIAC: First sound and second sound normal. ABDOMEN: Soft, obese, there is lot of midline incision and lot of in covering the abdomen due to recent surgery and is tender. EXTREMITIES: SCDs on. NEUROLOGIC: Normal. She moves all extremities. She is alert, awake and oriented x3. LABORATORY STUDY: Shows white count 21,042, hemoglobin 9.7, hematocrit 31.4 and platelets 167,000. Chemistry ji sodium 146, potassium 4.3, chloride 118, bicarb 26, BUN 57, creatinine 1.8, blood sugar 278 and phosphorous 2.4 and magnesium 1.9. Liver function test is normal. The patient had been on IV heparin. She will be monitored postoperatively. IMPRESSION AND PLAN: 1. Status post hernia surgery for strangulated hernia. The patient is doing okay and well. No vomiting. 2. Status post respiratory extubation, postoperatively doing well on BiPAP and continue current therapy. 3. The patient has non-ST elevation myocardial infarction. She is on current medication nicardipine, discussed with the resident, per the patient beta-blockers in addition to nicardipine, reduce the labetalol. We will monitor her heart rate and we will follow with the carbonizer. 4. Hypertension, continue nicardipine, continue hydralazine p.r.n., Lopressor to be added. I spoke to the resident on the case. 5. Insulin-dependent diabetes. Continue insulin coverage. 6. The patient has underlying chronic obstructive pulmonary disease. Solu-Medrol, will treat with Solu-Medrol 20 mg every 12 hours. The patient was on inhaled bronchodilators which and that will be helpful to the breathing conditions. Continue inhaled on IV bronchodilator for now. 7. History of pulmonary embolism and deep vein thrombosis. The patient is getting Eliquis. We will follow up. We will DC IV heparin tomorrow and put the patient on Eliquis as long as there is no active bleeding. Continue current therapy, followup clinically. We will see how the patient do. We will, depending on the patient's response, we will start advancing medication p.o. and put her back on previous medicines. Continue current therapy. Elroy Florian MD
--- NOTE | 2018-04-16 12:16 | CP.PCM.PN ---
Subjective - Date & Time of Evaluation Date of Evaluation: 04/16/18 Time of Evaluation: 12:16 - Subjective Subjective: Nephrology Consultation Note: Assessment: stable SBO s/p ex lap Acute Kidney Injury (N17.9) likely pre-renal state HTN urgency, hyperkalemia left adrenal adenoma, Rt renal hyperdense cyst chronic hypercapnic respi failure Diabetic chronic Kidney Disease (E11.22) Hypertensive Chronic Kidney Disease (I12.9) Chronic Kidney Disease (N18.3) Stage 3 with 2.4 gm proteinuria (R80.9) likely due to DM/HTN/Obesity Anemia Vit D def morbid obesity, CAD s/p stent, COPD/SUMMER, rectal ca s/p colostomy Plan No acute need for renal replacement therapy at this time. HTN better controlled in ICU off nicardipine drip. also has clonidine patch. resume norvasc 10 mg/day. lopressor, hydralazine and imdur. added lasix 40/day Monitor Input/Output, daily weights and renal function with basic metabolic panel pulmonary and surgery following defer management of anemia to heme/onc. due to hx of malignancy, will defer use of ESAs. PRBC as needed agree with diuretics as lasix as needed Adrenal adenoma work up with plasma renin/aldosterone, plasma metanephrine NEGATIVE. outpt 1 mg dexa suppression test repeat renal sono in 6 months to assess her Rt renal cyst Dose meds/antibiotics for reduced GFR. Avoid fleets enema/magnesium based laxatives. Avoid nephrotoxins/NSAIDs/ iodinated contrast (unless needed emergently) Glycemic control Further work up/management as per primary team Thanks for allowing me to participate in care of your patient. Will follow patient with you. Please call if any Qs. had d/w team Dr Dae Dawn Office: [phone] Chief Complaint; abdomen pain Reason for consult: Acute Kidney Injury, CKD 3 HPI: Pt is a 62 F with hx of diabetes Mellitus (15 years), hypertension (years), CKD 3 with baseline cr 1.2-1.3 with AKIs, morbid obesity, CAD s/p stent, COPD/SUMMER on CPAP, rectal ca s/p colostomy presented with complaints of abdomen pain with nausea/vomiting. renal consult for CKD and SHELBI management. pt has no urine complaints. found to have partial SBO Denies OTC/herbal meds or NSAIDs No recent iodinated contrast exposure. No obvious episodes of low BP. ROS: pt extubated. feels better. tolerating liquid diet Physical Examination: General Appearance: comfortable,morbidly obese. better appearing Vitals reviewed and noted as below Head; Atraumatic, normocephalic ENT: on BiPAP EYES: Pupils are equal, round and reactive to light accommodation. Eye muscles and extraocular movement intact. Sclera is anicteric. Neck; supple no lymphadenopathy, no thyromegaly or bruit Lungs: Normal respiratory rate/effort. Breath sounds bilateral equal, diminished at bases Heart: normal rate. s1s2 normal. No rub or gallop. Extremities: 2+ edema. No varicose veins Neurological: Patient is sedated Skin: Warm and dry. Normal turgor. No rash. Palpitation: Normal elasticity for age Abdomen: Abdomen is s/p ex lap Psych: deferred MSK: no joint tenderness or swelling. Digits and nails normal, no deformity : kidney or bladder not palpable Labs/imaging reviewed. Past medical history, past surgical history, family history, social history, allergy reviewed and noted as below Family hx: no hx of CKD. Rest non-contributory PET CT 04/2017: neg CT abdomen: left adrenal adenoma 1.9 cm Rt kidney 2.6 cm hyperdense cyst UA 100 protein, neg for blood renin and roma low, metanehrine WNL PTH 133 Vit D 27 ANCA neg, K/L ratio WNL Objective - Vital Signs/Intake and Output Vital Signs (last 24 hours): Temp Pulse Resp BP Pulse Ox 98.5 F 84 27 H 168/78 H 99 04/16/18 06:00 04/16/18 06:20 04/16/18 06:20 04/16/18 10:34 04/16/18 06:20 Intake and Output: 04/16/18 04/16/18 06:59 18:59 Intake Total 1450 Output Total 1170 Balance 280 - Medications Medications: Current Medications Amlodipine Besylate (Norvasc) 10 mg PO DAILY [facility] Last Admin: 04/16/18 10:34 Dose: 10 mg Arformoterol Tartrate (Brovana) 15 mcg IH [id number] [facility] Last Admin: 04/16/18 07:36 Dose: 15 mcg Budesonide (Pulmicort Respules) 0.5 mg IH [id number] [facility] Last Admin: 04/16/18 07:36 Dose: 0.5 mg Clonidine HCl (Catapres-Tts3 0.3 Mg/24 Hr) 1 patch TD Q7D@1000 [facility] Last Admin: 04/11/18 18:17 Dose: 1 patch Docusate Sodium (Colace) 100 mg PO TID [facility] Last Admin: 04/16/18 09:00 Dose: Not Given Heparin Sodium (Porcine) (Heparin) 5,000 units SC Q8 [facility]; Protocol Last Admin: 04/16/18 05:44 Dose: 5,000 units Hydralazine HCl (Apresoline) 50 mg PO TID [facility] Last Admin: 04/16/18 10:41 Dose: 50 mg Hydralazine HCl (Apresoline) 10 mg IVP Q6 PRN PRN Reason: for sbp>160 Hydromorphone HCl (Dilaudid) 0.5 mg IVP Q2H PRN PRN Reason: Pain, Mild (1-3) Last Admin: 04/16/18 11:01 Dose: 0.5 mg Hydromorphone HCl (Dilaudid) 1 mg IVP Q4H PRN PRN Reason: Pain, severe (8-10) Last Admin: 04/16/18 08:14 Dose: 1 mg Heparin Sodium/Sodium Chloride (Heparin 42472 Units/250ml 1/2 Normal Saline) 25,000 units in 250 mls @ 16.346 mls/hr IV .[id number] [facility]; Protocol Last Admin: 04/13/18 23:51 Dose: Not Given Cefepime HCl (Maxipime 2gm) 2 gm in 100 mls @ 25 mls/hr IVPB DAILY [facility]; Protocol Stop: 04/18/18 10:01 Last Admin: 04/16/18 10:36 Dose: 25 mls/hr Metronidazole (Flagyl) 500 mg in 100 mls @ 100 mls/hr IVPB Q8 [facility]; Protocol Last Admin: 04/16/18 05:44 Dose: 100 mls/hr Insulin Human Regular (Humulin R Low) 0 units SC Q6H [facility]; Protocol Last Admin: 04/16/18 09:15 Dose: 2 u Isosorbide Mononitrate (Imdur Er) 30 mg PO DAILY [facility] Last Admin: 04/16/18 10:38 Dose: 30 mg Levalbuterol HCl (Xopenex) 1.25 mg IH [id number] PRN PRN Reason: Shortness of Breath Methylprednisolone (Solu-Medrol) 20 mg IVP Q12 [facility] Last Admin: 04/16/18 10:30 Dose: 20 mg Metoprolol Tartrate (Lopressor) 50 mg PO BID [facility] Last Admin: 04/16/18 10:40 Dose: 50 mg Ondansetron HCl (Zofran Inj) 4 mg IVP Q6H PRN PRN Reason: Nausea/Vomiting Last Admin: 04/11/18 12:10 Dose: 4 mg Pantoprazole Sodium (Protonix Inj) 40 mg IVP DAILY [facility] Last Admin: 04/16/18 10:33 Dose: 40 mg - Labs Labs: 04/16/18 05:59 04/16/18 05:59 PT 19.0 SECONDS (9.4-12.5) H 04/14/18 05:30 INR 1.64 04/14/18 05:30 APTT 28.9 Seconds (25.1-36.5) 04/14/18 05:30
--- NOTE | 2018-04-16 13:43 | PN ---
DATE: 04/16/2018 REASON FOR CONSULTATION: Cardiac evaluation, preop and postop followup, coronary artery disease, non-ST segment myocardial infarction, acute renal failure, acute abdomen status post exploratory laparotomy, and ventral hernia repair for acute abdomen. SUBJECTIVE: The patient is awake and alert, status post extubated on noninvasive ventilator high flow oxygen. Denies any chest pain, shortness of breath, any palpitations. PHYSICAL EXAMINATION: GENERAL: Not in apparent distress. VITAL SIGNS: Temperature afebrile, heart rate 84, blood pressure 130/80. HEENT: PERRLA. Extraocular muscles intact. NECK: Supple. No carotid bruit or thyromegaly. CHEST: Clear to auscultation. HEART: S1 and S2 regular. ABDOMEN: Soft. EXTREMITIES: Clubbing and cyanosis negative. LABORATORY DATA: Blood workup as follows; WBC 21.2, hemoglobin 9.8, hematocrit 29.5, platelet count 143. Chemistry shows sodium 140, potassium 4.5, chloride 116, carbon dioxide 23, anion gap is 12, BUN 56, and creatinine 1.7. Total protein 5.4, albumin 2.4, albumin-globulin ratio of 0.8. IMPRESSION: A 62-year-old morbidly obese female with past medical history significant for coronary artery disease, history of pulmonary embolism in the past, history of rectal carcinoma, status post colonic resection and colostomy few days ago, transferred to [facility] because of the abdominal pain and found to be the small bowel obstruction, initially was treated conservatively and later on the patient had exploratory laparotomy, ventral hernia repair with mesh and revision of the colostomy and mucous fistula and lysis of adhesions. Perioperative course was complicated by non-ST segment myocardial infarction before surgery, which is being treated conservatively. The patient denies any chest pain, history of renal insufficiency, maximum troponin is 1.3 with the creatinine clearance at 28 mL. Electrocardiogram, normal sinus. The patient is now successfully extubated in the high flow oxygen noninvasive ventilator. Denies any chest pain, shortness of breath, any palpitations,. The patient last had echocardiography done to follow up that showed normal left ventricular size, [id number] concentric left ventricular hypertrophy, ejection fraction 65 to 70%. There is a trace aortic regurgitation, aortic sclerosis versus mild aortic stenosis, trace mitral regurgitation and moderate tricuspid regurgitation, , moderate pulmonary hypertension, no pericardial effusion . The right ventricle is moderately dilated, again preserved left ventricular function. Echocardiogram done yesterday dated 04/15/2018 though it was read but not transmitted to the Medicare, still in the 8-minute system. RECOMMENDATIONS: We will start p.o. meds, increase nutritional support. We will put some Glucerna shaking to increase nutritional support. The patient has [id number] protein-calorie malnutrition, which was not present on admission. Changed medication to p.o. for blood pressure. We will follow closely. The patient could benefit with gentle diuretics and keeping the negative fluid balance. We will follow with you. Continue clonidine patch #3. Continue hydralazine 50 t.i.d. We will change Lopressor to p.o. Discussed with nursing staff and the resident taking care of the patient. We will put some supplement for Glucerna one can p.o. t.i.d. Already been started actually Pro-Stat sugar free, so we will continue with this. Thank you Dr. Florian for providing us the opportunity in taking care of the patient, Ismael Vasquez. Pamela Guerrero MD cc: Elroy Florian MD
--- NOTE | 2018-04-16 17:01 | CP.PCM.PN ---
Subjective - Date & Time of Evaluation Date of Evaluation: 04/16/18 Time of Evaluation: 10:05 - Subjective Subjective: Still with abdominal pain but no nausea, no fevers. Objective - Vital Signs/Intake and Output Vital Signs (last 24 hours): Temp Pulse Resp BP Pulse Ox 99.1 F 84 16 164/66 H 98 04/15/18 03:00 04/15/18 07:40 04/15/18 03:00 04/15/18 08:43 04/15/18 07:40 Intake and Output: 04/15/18 04/15/18 06:59 18:59 Intake Total 1130 80 Balance 1130 80 - Medications Medications: Current Medications Arformoterol Tartrate (Brovana) 15 mcg IH [id number] [facility] Last Admin: 04/15/18 07:17 Dose: 15 mcg Budesonide (Pulmicort Respules) 0.5 mg IH [id number] [facility] Last Admin: 04/15/18 07:17 Dose: 0.5 mg Clonidine HCl (Catapres-Tts3 0.3 Mg/24 Hr) 1 patch TD Q7D@1000 [facility] Last Admin: 04/11/18 18:17 Dose: 1 patch Docusate Sodium (Colace) 100 mg PO TID [facility] Last Admin: 04/14/18 18:50 Dose: Not Given Heparin Sodium (Porcine) (Heparin) 5,000 units SC Q8 [facility]; Protocol Last Admin: 04/15/18 08:53 Dose: 5,000 units Hydralazine HCl (Apresoline) 50 mg PO TID [facility] Last Admin: 04/15/18 10:45 Dose: Not Given Hydromorphone HCl (Dilaudid) 0.5 mg IVP Q2H PRN PRN Reason: Pain, Mild (1-3) Last Admin: 04/15/18 09:32 Dose: 0.5 mg Hydromorphone HCl (Dilaudid) 1 mg IVP Q4H PRN PRN Reason: Pain, severe (8-10) Last Admin: 04/15/18 06:53 Dose: 1 mg Heparin Sodium/Sodium Chloride (Heparin 36640 Units/250ml 1/2 Normal Saline) 25,000 units in 250 mls @ 16.346 mls/hr IV .[id number] [facility]; Protocol Last Admin: 04/13/18 23:51 Dose: Not Given Sodium Chloride (Sodium Chloride 0.45%) 1,000 mls @ 50 mls/hr IV .Q20H [facility] Last Admin: 04/14/18 14:22 Dose: 50 mls/hr Cefepime HCl (Maxipime 2gm) 2 gm in 100 mls @ 25 mls/hr IVPB DAILY [facility]; Protocol Stop: 04/18/18 10:01 Last Admin: 04/15/18 10:45 Dose: 25 mls/hr Metronidazole (Flagyl) 500 mg in 100 mls @ 100 mls/hr IVPB Q8 [facility]; Protocol Last Admin: 04/15/18 08:50 Dose: 100 mls/hr Sodium Phosphate 15 mmole/ (Sodium Chloride) 255 mls @ 42.5 mls/hr IVPB ONCE ONE Stop: 04/15/18 13:38 Last Admin: 04/15/18 09:39 Dose: 42.5 mls/hr Nicardipine HCl (Cardene Iv Premix) 20 mg in 200 mls @ 50 mls/hr IV .Q4H PRN; Protocol PRN Reason: TITRATE PER MD ORDER Last Admin: 04/15/18 10:48 Dose: 5 mg/hr, 50 mls/hr Insulin Human Regular (Humulin R Low) 0 units SC Q6H [facility]; Protocol Last Admin: 04/15/18 08:48 Dose: 2 u Isosorbide Mononitrate (Imdur Er) 30 mg PO DAILY [facility] Last Admin: 04/15/18 10:46 Dose: Not Given Levalbuterol HCl (Xopenex) 1.25 mg IH [id number] PRN PRN Reason: Shortness of Breath Methylprednisolone (Solu-Medrol) 30 mg IVP Q12 [facility] Last Admin: 04/14/18 22:20 Dose: 30 mg Ondansetron HCl (Zofran Inj) 4 mg IVP Q6H PRN PRN Reason: Nausea/Vomiting Last Admin: 04/11/18 12:10 Dose: 4 mg Pantoprazole Sodium (Protonix Inj) 40 mg IVP DAILY [facility] Last Admin: 04/15/18 10:49 Dose: 40 mg - Labs Labs: 04/15/18 05:30 04/15/18 05:30 PT 19.0 SECONDS (9.4-12.5) H 04/14/18 05:30 INR 1.64 04/14/18 05:30 APTT 28.9 Seconds (25.1-36.5) 04/14/18 05:30 - Constitutional Appears: Chronically Ill - Head Exam Head Exam: NORMAL INSPECTION - Neck Exam Neck Exam: absent: Meningismus - Respiratory Exam Respiratory Exam: Decreased Breath Sounds Additional comments: right anterior chest wall port in place - Cardiovascular Exam Cardiovascular Exam: +S1, +S2 - GI/Abdominal Exam GI & Abdominal Exam: Soft, Tenderness (mild). absent: Distended, Firm, Guarding, Rigid, Rebound Additional comments: dressings in place, IVETTE drain in place Assessment and Plan - Assessment and Plan (Free Text) Plan: Assessment consider small bowel obstruction in this patient with ventral wall hernia, S/P ventral incarcerated hernia repair, adhesiolysis and revision of colostomy POD #2 acute coronary syndrome with NSTEMI COPD history of VRE UTI history of severe sepsis secondary to left medial thigh abscess, growing Proteu s, S/P incision and drainage DM HTN CAD Unresectable rectal cancer S/P chemotherapy and radiation therapy S/P colostomy S/P Port-a-cath placement morbid obesity with BMI 50 obstructive sleep apnea history of pulmonary embolism S/P IVC filter placement Plan continue Cefepime, give intermittent Vancomycin and continue Flagyl day 5 and will continue to monitor clinically
--- NOTE | 2018-04-16 22:24 | PN ---
DATE: 04/16/2018 SUBJECTIVE: She is lying in the bed with the head of the bed elevated at 45 degrees. Day was little better than yesterday, was able to get out of bed to chair with the help of staff. Cleve lift was used. Presently lying in the bed. Family is at bedside. On high-flow nasal cannula oxygen. Feels much better. Pain decreased. No cough. No sputum production. Short of breath with minimal exertion. No leg pain or leg swelling. PHYSICAL EXAMINATION: GENERAL: No acute distress. VITAL SIGNS: Temp is 98, heart rate is 81, respiratory rate is 22, blood pressure 190/71, pulse ox 95% on high-flow nasal cannula. HEENT: Moist mucous membranes. Crowded airway. NECK: Short thick neck. LUNGS: Have fair airflow with rhonchi. HEART: S1, S2. ABDOMEN: Obese. Midline surgical scar looks okay. Colostomy is okay, not much drainage. Positive bowel sounds. Mild tenderness. EXTREMITIES: There is no edema. NEUROLOGIC: Awake, alert, follows simple commands. MEDICATIONS: She is on hydralazine 50 mg three times a day, Brovana inhaled twice a day, clonidine patch every 7 days, Colace 100 mg three times a day, Dilaudid 7.5 mg every 12 hours p.r.n. and Dilaudid 1 mg every 4 hours p.r.n. for severe pain, Flagyl 500 mg every 8 hours, on heparin, Imdur 30 mg daily, Lasix 40 mg daily, metoprolol tartrate 50 mg twice a day, cefepime 2 g IV daily, Norvasc 10 mg daily, Protonix 40 mg daily, Pulmicort inhaled twice a day, Solu-Medrol 20 mg every 12 hours, Xopenex inhaled every 6 hours p.r.n., Zofran p.r.n. basis. LABORATORY DATA: Hemoglobin 9.2, hematocrit 29.5, WBC 21,000, platelet count is 143. Sodium 146, potassium 4.1, chloride 116, bicarbonate 23, BUN 56, creatinine 1.7, glucose 241, calcium is 8.1, phosphorus 4.1, magnesium 1.8, AST 26, ALT 21, alk phos is 110, albumin is 2.4. Microbiology: Blood culture negative. Urine has some yeast. IMPRESSION AND PLAN: Status post laparotomy for incarcerated hernia and small bowel obstruction; also relocation of colostomy; chronic obstructive lung disease; morbid obesity; pulmonary embolism; deep vein thrombosis in the past; colorectal cancer, which has been resected; hypoventilation syndrome, presently on high-flow oxygen. Continue bronchodilator, pain management. Gastric and DVT prophylaxis. Spoke to nursing staff. Also spoke to family at bedside. All the questions answered. We will get physical therapy involved to get her out of bed to chair as much possible. Incentive spirometer. Follow up ABG, chest x-ray, CBC, and CMP in the morning. Critical care time more than 35 minutes. Thank you and we will follow with you. Pamela Ayala MD
[2018-04-17] MEDS: HYDROmorphone 0.5 mg/0.5 ml ISec IVP PRN ×4 (00:38→21:54)
[2018-04-17] MEDS: Insulin Reg-LOW-Coverage SC SCH ×2 (02:18→08:21)
[2018-04-17] MEDS: HYDROmorphone 1 mg/ml ISec IVP PRN ×3 (04:29→17:05)
[2018-04-17] MEDS ORDERED: HYDROmorphone 0.5 mg/0.5 ml ISec IVP STA (05:33)
[2018-04-17] MEDS: metroNIDAZOLE IV 500 mg/100 ml 500 MG/100 ML BAG IVPB SCH ×3 (05:48→22:04)
[2018-04-17 06:52] LABS: BASO # 0.01 K/mm3 (0.0-2.0); BASO % 0.1 % (0.0-3.0); GRAN # 14.79 (1.4-6.5); GRAN % 92.5 % (50.0-68.0); HEMOGLOBIN 8.8 g/dL (12.0-16.0); LYMPH # 0.8 (1.2-3.4); LYMPH % 5.1 % (22.0-35.0); MEAN CELL VOLUME 86.5 fl (80.0-105.0); MEAN CORPUSCULAR HEMOGLOBIN 27.1 pg (25.0-35.0); MEAN CORPUSCULAR HGB CONC 31.3 g/dl (31.0-37.0); MEAN PLATELET VOLUME 11.3 fl (7.0-11.0); MONO # 0.4 (0.1-0.6); MONO % 2.3 % (1.0-6.0); RBC 3.25 10^6/uL (3.5-6.1); RED CELL DISTRIBUTION WIDTH 19.9 % (11.5-14.5)
[2018-04-17 06:59] LABS: ALB/GLOB RATIO 0.8 (1.1-1.8); ALBUMIN 2.5 g/dL (3.0-4.8); CALCIUM 8.3 mg/dL (8.4-10.5)
[2018-04-17] MEDS ORDERED: Magnesium Sulfate 2 gm/50 ml 2 GM/50 ML BAG IVPB ONE (07:18)
[2018-04-17] MEDS: Heparin25000 units/250ml 1/2NS 25,000 UNITS/250 ML BAG IV SCH ×2 (07:56→13:55)
[2018-04-17] MEDS: Budesonide 0.5 mg/2 ml Inhal Susp UD IH SCH ×2 (08:02→19:42)
[2018-04-17] MEDS: Arformoterol 15 mcg/2 ml Inh Sol IH SCH ×2 (08:02→19:42)
--- NOTE | 2018-04-17 08:38 | CP.CCUPN ---
<Darby Candelario - Last Filed: 04/17/18 09:19> CCU Subjective - Physician Review Subjective (Free Text): CRITICAL CARE PROGRESS NOTE FOR DR. ALPA Candelario PGY-1 Pt seen and examined at bedside this am. She reports abdominal pain that has been controlled with dilaudid. She is AxO, conversing well in no apparent distress. She is tolerating her diet. She was able to get OOB to chair yesterday with assistance. She denies other 12 point ROS CCU Objective - Vital Signs / Intake & Output Vital Signs (Last 4 hours): Vital Signs Pulse Resp BP Pulse Ox 04/17/18 08:06 79 191/69 H 04/17/18 06:21 73 195/66 H 04/17/18 05:10 74 42 H 04/17/18 05:01 78 41 H 193/84 H 04/17/18 05:00 80 29 H 04/17/18 04:53 24 04/17/18 04:52 17 04/17/18 04:51 25 H 04/17/18 04:50 67 H 04/17/18 04:49 19 04/17/18 04:48 18 04/17/18 04:47 19 04/17/18 04:40 79 19 100 Intake and Output (Last 8hrs): Intake & Output 04/16/18 04/17/18 04/17/18 22:59 06:59 14:59 Intake Total 600 458 100 Output Total 940 520 Balance -340 -62 100 Intake: IV 0 458 100 Left Upper arm 358 Oral 600 Output: Drainage 140 Right Abdomen 140 Urine 800 350 Urethral (Marrero) 800 350 Other 170 - Physical Exam Head: Positive for: Atraumatic, Normocephalic Pupils: Positive for: PERRL Extroacular Muscles: Positive for: EOMI Conjunctiva: Positive for: Normal Mouth: Positive for: Moist Mucous Membranes Neck: Positive for: Normal Range of Motion Respiratory/Chest: Positive for: Clear to Auscultation, Good Air Exchange. Negative for: Respiratory Distress, Accessory Muscle Use Cardiovascular: Positive for: Regular Rate and Rhythm, Normal S1, S2. Negative for: Murmurs Abdomen: Positive for: Tenderness (Diffuse mid/lower abdominal tenderness). Negative for: Distention, Peritoneal Signs, Other (No erythema noted around colostomy. Abdominal binder in place. Dressing c/d/i) Back: Positive for: Normal Inspection Upper Extremity: Positive for: Normal Inspection. Negative for: Cyanosis, Edema Lower Extremity: Positive for: Normal Inspection. Negative for: Edema Neurological: Positive for: GCS=15, CN II-XII Intact, Speech Normal Skin: Positive for: Warm, Dry, Normal Color. Negative for: Rashes Psychiatric: Positive for: Alert, Oriented x 3, Normal Insight, Normal Concentration - Medications Active Medications: Active Medications Generic Name Dose Route Start Last Admin Trade Name Freq PRN Reason Stop Dose Admin Amlodipine Besylate 10 mg 04/16/18 10:00 04/16/18 10:34 Norvasc PO 10 mg DAILY JR Administration Arformoterol Tartrate 15 mcg 04/10/18 08:00 04/17/18 08:02 Brovana IH 15 mcg [id number] JR Administration Budesonide 0.5 mg 04/10/18 08:00 04/17/18 08:02 Pulmicort Respules IH 0.5 mg [id number] JR Administration Clonidine HCl 1 patch 04/11/18 16:15 04/11/18 18:17 Catapres-Tts3 0.3 Mg/24 Hr TD 1 patch Q7D@1000 JR Administration Docusate Sodium 100 mg 04/11/18 14:00 04/16/18 18:54 Colace PO Not Given TID [facility] Furosemide 40 mg 04/16/18 12:15 Lasix PO DAILY [facility] Hydralazine HCl 50 mg 04/12/18 10:00 04/17/18 08:06 Apresoline PO 50 mg TID JR Administration Hydralazine HCl 10 mg 04/15/18 13:41 04/17/18 06:21 Apresoline IVP 10 mg Q6 PRN Administration for sbp>160 Hydromorphone HCl 0.5 mg 04/13/18 09:52 04/17/18 04:29 Dilaudid IVP 0.5 mg Q2H PRN Administration Pain, Mild (1-3) Hydromorphone HCl 1 mg 04/13/18 09:53 04/17/18 04:29 Dilaudid IVP 1 mg Q4H PRN Administration Pain, severe (8-10) Heparin Sodium/Sodium Chloride 25,000 units in 250 mls @ 16.346 mls/hr 04/12/18 14:15 04/17/18 07:56 Heparin 07292 Units/250ml 1/2 Normal Saline IV 9 units/kg/hr .[id number] JR 12.259 mls/hr Administration Protocol 12 UNITS/KG/HR Cefepime HCl 2 gm in 100 mls @ 25 mls/hr 04/13/18 10:00 04/16/18 10:36 Maxipime 2gm IVPB 04/18/18 10:01 25 mls/hr DAILY JR Administration Protocol Metronidazole 500 mg in 100 mls @ 100 mls/hr 04/15/18 07:15 04/17/18 05:48 Flagyl IVPB 100 mls/hr Q8 JR Administration Protocol Insulin Human Regular 0 units 04/15/18 08:00 04/17/18 08:21 Humulin R Low SC 3 u Q6H JR Administration Protocol Isosorbide Mononitrate 30 mg 04/12/18 10:00 04/16/18 10:38 Imdur Er PO 30 mg DAILY JR Administration Levalbuterol HCl 1.25 mg 04/11/18 14:03 04/16/18 13:42 Xopenex IH 1.25 mg [id number] PRN Administration Shortness of Breath Methylprednisolone 20 mg 04/15/18 22:00 04/16/18 21:46 Solu-Medrol IVP 20 mg Q12 JR Administration Metoprolol Tartrate 50 mg 04/16/18 10:00 04/16/18 18:58 Lopressor PO 50 mg BID JR Administration Ondansetron HCl 4 mg 04/10/18 16:21 04/11/18 12:10 Zofran Inj IVP 4 mg Q6H PRN Administration Nausea/Vomiting Pantoprazole Sodium 40 mg 04/10/18 10:00 04/16/18 10:33 Protonix Inj IVP 40 mg DAILY JR Administration - Patient Studies Lab Studies: Microbiology Studies 04/11/18 10:30 Blood Culture - Final Blood-Venous NO GROWTH AFTER 5 DAYS Gram Stain - Final TEST NOT PERFORMED 04/11/18 10:00 Blood Culture - Final Blood-Venous NO GROWTH AFTER 5 DAYS Gram Stain - Final TEST NOT PERFORMED Lab Studies 04/17/18 04/17/18 04/17/18 Range/Units 08:02 06:20 06:20 WBC 16.0 H D (4.5-11.0) 10^3/uL RBC 3.25 L (3.5-6.1) 10^6/uL Hgb 8.8 L (12.0-16.0) g/dL Hct 28.1 L (36.0-48.0) % MCV 86.5 (80.0-105.0) fl MCH 27.1 (25.0-35.0) pg MCHC 31.3 (31.0-37.0) g/dl RDW 19.9 H (11.5-14.5) % Plt Count 144 (120.0-450.0) 10^3/uL MPV 11.3 H (7.0-11.0) fl Gran % 92.5 H (50.0-68.0) % Lymph % (Auto) 5.1 L (22.0-35.0) % [place] % (Auto) 2.3 (1.0-6.0) % Eos % (Auto) 0.0 L (1.5-5.0) % Baso % (Auto) 0.1 (0.0-3.0) % Gran # 14.79 H (1.4-6.5) Lymph # (Auto) 0.8 L (1.2-3.4) [place] # (Auto) 0.4 (0.1-0.6) Eos # (Auto) 0.0 (0.0-0.7) Baso # (Auto) 0.01 (0.0-2.0) K/mm3 APTT (25.1-36.5) Seconds Sodium 146 (132-148) mmol/L Potassium 4.2 (3.6-5.0) mmol/L Chloride 114 H (98-107) mmol/L Carbon Dioxide 24 (21-33) mmol/L Anion Gap 12 (10-20) BUN 49 H (7-21) mg/dL Creatinine 1.8 H (0.7-1.2) mg/dl Est GFR ( Amer) 34 Est GFR (Non-Af Amer) 28 POC Glucose (mg/dL) 280 H (65-110) mg/dL Random Glucose 275 H (70-110) mg/dL Calcium 8.3 L (8.4-10.5) mg/dL Phosphorus 3.5 (2.5-4.5) mg/dL Magnesium 1.6 L (1.7-2.2) mg/dL Total Bilirubin 0.4 (0.2-1.3) mg/dL AST 20 (14-36) U/L ALT 25 (7-56) U/L Alkaline Phosphatase 115 (38-126) U/L Total Protein 5.8 (5.8-8.3) g/dL Albumin 2.5 L (3.0-4.8) g/dL Globulin 3.3 gm/dL Albumin/Globulin Ratio 0.8 L (1.1-1.8) Crossmatch 04/17/18 04/17/18 04/16/18 Range/Units 02:40 02:15 20:48 WBC (4.5-11.0) 10^3/uL RBC (3.5-6.1) 10^6/uL Hgb (12.0-16.0) g/dL Hct (36.0-48.0) % MCV (80.0-105.0) fl MCH (25.0-35.0) pg MCHC (31.0-37.0) g/dl RDW (11.5-14.5) % Plt Count (120.0-450.0) 10^3/uL MPV (7.0-11.0) fl Gran % (50.0-68.0) % Lymph % (Auto) (22.0-35.0) % [place] % (Auto) (1.0-6.0) % Eos % (Auto) (1.5-5.0) % Baso % (Auto) (0.0-3.0) % Gran # (1.4-6.5) Lymph # (Auto) (1.2-3.4) [place] # (Auto) (0.1-0.6) Eos # (Auto) (0.0-0.7) Baso # (Auto) (0.0-2.0) K/mm3 APTT > 400.0 H* (25.1-36.5) Seconds Sodium (132-148) mmol/L Potassium (3.6-5.0) mmol/L Chloride (98-107) mmol/L Carbon Dioxide (21-33) mmol/L Anion Gap (10-20) BUN (7-21) mg/dL Creatinine (0.7-1.2) mg/dl Est GFR ( Amer) Est GFR (Non-Af Amer) POC Glucose (mg/dL) 249 H 244 H (65-110) mg/dL Random Glucose (70-110) mg/dL Calcium (8.4-10.5) mg/dL Phosphorus (2.5-4.5) mg/dL Magnesium (1.7-2.2) mg/dL Total Bilirubin (0.2-1.3) mg/dL AST (14-36) U/L ALT (7-56) U/L Alkaline Phosphatase (38-126) U/L Total Protein (5.8-8.3) g/dL Albumin (3.0-4.8) g/dL Globulin gm/dL Albumin/Globulin Ratio (1.1-1.8) Crossmatch 04/16/18 04/16/18 04/16/18 Range/Units 18:15 11:22 05:59 WBC (4.5-11.0) 10^3/uL RBC (3.5-6.1) 10^6/uL Hgb (12.0-16.0) g/dL Hct (36.0-48.0) % MCV (80.0-105.0) fl MCH (25.0-35.0) pg MCHC (31.0-37.0) g/dl RDW (11.5-14.5) % Plt Count 143 (120.0-450.0) 10^3/uL MPV (7.0-11.0) fl Gran % (50.0-68.0) % Lymph % (Auto) (22.0-35.0) % [place] % (Auto) (1.0-6.0) % Eos % (Auto) (1.5-5.0) % Baso % (Auto) (0.0-3.0) % Gran # (1.4-6.5) Lymph # (Auto) (1.2-3.4) [place] # (Auto) (0.1-0.6) Eos # (Auto) (0.0-0.7) Baso # (Auto) (0.0-2.0) K/mm3 APTT (25.1-36.5) Seconds Sodium (132-148) mmol/L Potassium (3.6-5.0) mmol/L Chloride (98-107) mmol/L Carbon Dioxide (21-33) mmol/L Anion Gap (10-20) BUN (7-21) mg/dL Creatinine (0.7-1.2) mg/dl Est GFR ( Amer) Est GFR (Non-Af Amer) POC Glucose (mg/dL) 266 H 212 H (65-110) mg/dL Random Glucose (70-110) mg/dL Calcium (8.4-10.5) mg/dL Phosphorus (2.5-4.5) mg/dL Magnesium (1.7-2.2) mg/dL Total Bilirubin (0.2-1.3) mg/dL AST (14-36) U/L ALT (7-56) U/L Alkaline Phosphatase (38-126) U/L Total Protein (5.8-8.3) g/dL Albumin (3.0-4.8) g/dL Globulin gm/dL Albumin/Globulin Ratio (1.1-1.8) Crossmatch 04/13/18 Range/Units 14:00 WBC (4.5-11.0) 10^3/uL RBC (3.5-6.1) 10^6/uL Hgb (12.0-16.0) g/dL Hct (36.0-48.0) % MCV (80.0-105.0) fl MCH (25.0-35.0) pg MCHC (31.0-37.0) g/dl RDW (11.5-14.5) % Plt Count (120.0-450.0) 10^3/uL MPV (7.0-11.0) fl Gran % (50.0-68.0) % Lymph % (Auto) (22.0-35.0) % [place] % (Auto) (1.0-6.0) % Eos % (Auto) (1.5-5.0) % Baso % (Auto) (0.0-3.0) % Gran # (1.4-6.5) Lymph # (Auto) (1.2-3.4) [place] # (Auto) (0.1-0.6) Eos # (Auto) (0.0-0.7) Baso # (Auto) (0.0-2.0) K/mm3 APTT (25.1-36.5) Seconds Sodium (132-148) mmol/L Potassium (3.6-5.0) mmol/L Chloride (98-107) mmol/L Carbon Dioxide (21-33) mmol/L Anion Gap (10-20) BUN (7-21) mg/dL Creatinine (0.7-1.2) mg/dl Est GFR ( Amer) Est GFR (Non-Af Amer) POC Glucose (mg/dL) (65-110) mg/dL Random Glucose (70-110) mg/dL Calcium (8.4-10.5) mg/dL Phosphorus (2.5-4.5) mg/dL Magnesium (1.7-2.2) mg/dL Total Bilirubin (0.2-1.3) mg/dL AST (14-36) U/L ALT (7-56) U/L Alkaline Phosphatase (38-126) U/L Total Protein (5.8-8.3) g/dL Albumin (3.0-4.8) g/dL Globulin gm/dL Albumin/Globulin Ratio (1.1-1.8) Crossmatch See Detail Laboratory Results - last 24 hr 04/13/18 04/16/18 04/16/18 14:00 05:59 11:22 WBC RBC Hgb Hct MCV MCH MCHC RDW Plt Count 143 MPV Gran % Lymph % (Auto) [place] % (Auto) Eos % (Auto) Baso % (Auto) Gran # Lymph # (Auto) [place] # (Auto) Eos # (Auto) Baso # (Auto) APTT Sodium Potassium Chloride Carbon Dioxide Anion Gap BUN Creatinine Est GFR ( Amer) Est GFR (Non-Af Amer) POC Glucose (mg/dL) 212 H Random Glucose Calcium Phosphorus Magnesium Total Bilirubin AST ALT Alkaline Phosphatase Total Protein Albumin Globulin Albumin/Globulin Ratio Crossmatch See Detail 04/16/18 04/16/18 04/17/18 18:15 20:48 02:15 WBC RBC Hgb Hct MCV MCH MCHC RDW Plt Count MPV Gran % Lymph % (Auto) [place] % (Auto) Eos % (Auto) Baso % (Auto) Gran # Lymph # (Auto) [place] # (Auto) Eos # (Auto) Baso # (Auto) APTT Sodium Potassium Chloride Carbon Dioxide Anion Gap BUN Creatinine Est GFR ( Amer) Est GFR (Non-Af Amer) POC Glucose (mg/dL) 266 H 244 H 249 H Random Glucose Calcium Phosphorus Magnesium Total Bilirubin AST ALT Alkaline Phosphatase Total Protein Albumin Globulin Albumin/Globulin Ratio Crossmatch 04/17/18 04/17/18 04/17/18 02:40 06:20 06:20 WBC 16.0 H D RBC 3.25 L Hgb 8.8 L Hct 28.1 L MCV 86.5 MCH 27.1 MCHC 31.3 RDW 19.9 H Plt Count 144 MPV 11.3 H Gran % 92.5 H Lymph % (Auto) 5.1 L [place] % (Auto) 2.3 Eos % (Auto) 0.0 L Baso % (Auto) 0.1 Gran # 14.79 H Lymph # (Auto) 0.8 L [place] # (Auto) 0.4 Eos # (Auto) 0.0 Baso # (Auto) 0.01 APTT > 400.0 H* Sodium 146 Potassium 4.2 Chloride 114 H Carbon Dioxide 24 Anion Gap 12 BUN 49 H Creatinine 1.8 H Est GFR ( Amer) 34 Est GFR (Non-Af Amer) 28 POC Glucose (mg/dL) Random Glucose 275 H Calcium 8.3 L Phosphorus 3.5 Magnesium 1.6 L Total Bilirubin 0.4 AST 20 ALT 25 Alkaline Phosphatase 115 Total Protein 5.8 Albumin 2.5 L Globulin 3.3 Albumin/Globulin Ratio 0.8 L Crossmatch 04/17/18 08:02 WBC RBC Hgb Hct MCV MCH MCHC RDW Plt Count MPV Gran % Lymph % (Auto) [place] % (Auto) Eos % (Auto) Baso % (Auto) Gran # Lymph # (Auto) [place] # (Auto) Eos # (Auto) Baso # (Auto) APTT Sodium Potassium Chloride Carbon Dioxide Anion Gap BUN Creatinine Est GFR ( Amer) Est GFR (Non-Af Amer) POC Glucose (mg/dL) 280 H Random Glucose Calcium Phosphorus Magnesium Total Bilirubin AST ALT Alkaline Phosphatase Total Protein Albumin Globulin Albumin/Globulin Ratio Crossmatch Fingerstick Blood Sugar Results: 280 Review of Systems - Review of Systems Review of Systems: per [facility] Critical Care Progress Note - Nutrition Nutrition: Nutrition Category Date Time Status Liquid Diet [DIET] Diets 04/16/18 Breakfast Ordered Assessment/Plan - Assessment and Plan (Free Text) Assessment: 62F with morbid obesity, rectal adenocarcinoma s/p abdominal perineal resection, radiation, chemotherapy and 2 colostomies, CAD, hypertension, congestive heart failure, 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 She was subsequently found to have SBO on CT scan, and is s/p exploratory laparotomy with lysis of adhesion, ventral hernia repiar, mucus fistula and colostomy revision. She was initially admitted to ICU for hypertensive emergency, and returned s/p abdominal surgery. Plan: Neuro: AxO Following commands. Reorient as necessary Cardiovascular: Hypertensive emergency NSTEMI likely exacerbated by elevated BP and tachycardia. Heparin drip resumed, ok with surgery Oral antihypertensive adjustments per cardiology recommendations Oral hydralazine,imdur, clonidine patch Clear liquid diet per surgery recs. Advance as tolerated Pulm SUMMER, likely has obesity hypoventilation syndrome CPAP qhs levalbuterol arformoterol budesonide solu-medrol 20mg IVPq12 significant positive fluid balance avoid positive fluid balance CXR shows BL patchy infiltrates with upper lobe predominance. This findings were seen on CT scan on 02/12/2018. 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 As an outpatient she needs pulmonary follow-up and workup for ILD. She would benefit from bronchoscopy with biopsy and BAL as well. GI: colostomy draining brown stool IVETTE draining serosanguinous fluid, 170cc Abdominal binder removed per surgery recs dressings in place, c/d/i Clear liquid diet per surgery recs abdominal exam appropriate for post-operative. dilaudid for pain control /Renal avoid nephrotoxins maintain euvolemia ID: Leukocytosis downtrending likely related to surgery currently on cefepime/flagyl if fever/leukocytosis occurs, may proceed with septic workup antibiotics per ID recs Endo: maintain euglycemia within 140-180 per NICE-[employer]GAR trial Dispo: Pt is doing well this am. She reports complaints of abdominal pain controlled with analgesics. She is tolerating her diet. She is currently on oral anti-hypertensives. Heparin drip resumed per surgery recs for NSTEMI. She was oob to chair yesterday. Vital signs are stable. Pt no longer requires ICU care. Stable for transfer to telemetry floor. DVT/GI PPx: Hep drip/Protonix IVP Case seen, examined and discussed with attending physician, Dr De León <Moustapha De León - Last Filed: 04/17/18 09:40> CCU Objective - Vital Signs / Intake & Output Vital Signs (Last 4 hours): Vital Signs Pulse BP 04/17/18 09:04 172/64 H 04/17/18 09:03 172/64 H 04/17/18 09:01 78 172/64 H 04/17/18 08:06 79 191/69 H 04/17/18 06:21 73 195/66 H Intake and Output (Last 8hrs): Intake & Output 04/16/18 04/17/18 04/17/18 22:59 06:59 14:59 Intake Total 600 458 100 Output Total 940 520 Balance -340 -62 100 Intake: IV 0 458 100 Left Upper arm 358 Oral 600 Output: Drainage 140 Right Abdomen 140 Urine 800 350 Urethral (Marrero) 800 350 Other 170 - Medications Active Medications: Active Medications Generic Name Dose Route Start Last Admin Trade Name Freq PRN Reason Stop Dose Admin Amlodipine Besylate 10 mg 04/16/18 10:00 04/17/18 09:03 Norvasc PO 10 mg DAILY JR Administration Arformoterol Tartrate 15 mcg 04/10/18 08:00 04/17/18 08:02 Brovana IH 15 mcg [id number] JR Administration Budesonide 0.5 mg 04/10/18 08:00 04/17/18 08:02 Pulmicort Respules IH 0.5 mg [id number] JR Administration Clonidine HCl 1 patch 04/11/18 16:15 04/11/18 18:17 Catapres-Tts3 0.3 Mg/24 Hr TD 1 patch Q7D@1000 JR Administration Docusate Sodium 100 mg 04/11/18 14:00 04/17/18 09:23 Colace PO 100 mg TID JR Administration Furosemide 40 mg 04/16/18 12:15 04/17/18 09:04 Lasix PO 40 mg DAILY JR Administration Hydralazine HCl 50 mg 04/12/18 10:00 04/17/18 09:23 Apresoline PO Not Given TID JR Hydralazine HCl 10 mg 04/15/18 13:41 04/17/18 06:21 Apresoline IVP 10 mg Q6 PRN Administration for sbp>160 Hydromorphone HCl 0.5 mg 04/13/18 09:52 04/17/18 04:29 Dilaudid IVP 0.5 mg Q2H PRN Administration Pain, Mild (1-3) Hydromorphone HCl 1 mg 04/13/18 09:53 04/17/18 09:00 Dilaudid IVP 1 mg Q4H PRN Administration Pain, severe (8-10) Heparin Sodium/Sodium Chloride 25,000 units in 250 mls @ 16.346 mls/hr 04/12/18 14:15 04/17/18 07:56 Heparin 83664 Units/250ml 1/2 Normal Saline IV 9 units/kg/hr .[id number] JR 12.259 mls/hr Administration Protocol 12 UNITS/KG/HR Cefepime HCl 2 gm in 100 mls @ 25 mls/hr 04/13/18 10:00 04/17/18 09:02 Maxipime 2gm IVPB 04/18/18 10:01 25 mls/hr DAILY JR Administration Protocol Metronidazole 500 mg in 100 mls @ 100 mls/hr 04/15/18 07:15 04/17/18 05:48 Flagyl IVPB 100 mls/hr Q8 JR Administration Protocol Insulin Human Regular 0 units 04/15/18 08:00 04/17/18 08:21 Humulin R Low SC 3 u Q6H JR Administration Protocol Isosorbide Mononitrate 30 mg 04/12/18 10:00 04/17/18 09:01 Imdur Er PO 30 mg DAILY JR Administration Levalbuterol HCl 1.25 mg 04/11/18 14:03 04/16/18 13:42 Xopenex IH 1.25 mg [id number] PRN Administration Shortness of Breath Methylprednisolone 20 mg 04/15/18 22:00 04/17/18 08:59 Solu-Medrol IVP 20 mg Q12 JR Administration Metoprolol Tartrate 50 mg 04/16/18 10:00 04/17/18 09:01 Lopressor PO 50 mg BID JR Administration Ondansetron HCl 4 mg 04/10/18 16:21 04/11/18 12:10 Zofran Inj IVP 4 mg Q6H PRN Administration Nausea/Vomiting Pantoprazole Sodium 40 mg 04/10/18 10:00 04/17/18 09:09 Protonix Inj IVP 40 mg DAILY JR Administration - Patient Studies Lab Studies: Microbiology Studies 04/11/18 10:30 Blood Culture - Final Blood-Venous NO GROWTH AFTER 5 DAYS Gram Stain - Final TEST NOT PERFORMED 04/11/18 10:00 Blood Culture - Final Blood-Venous NO GROWTH AFTER 5 DAYS Gram Stain - Final TEST NOT PERFORMED Lab Studies 04/17/18 04/17/18 04/17/18 Range/Units 08:02 06:20 06:20 WBC 16.0 H D (4.5-11.0) 10^3/uL RBC 3.25 L (3.5-6.1) 10^6/uL Hgb 8.8 L (12.0-16.0) g/dL Hct 28.1 L (36.0-48.0) % MCV 86.5 (80.0-105.0) fl MCH 27.1 (25.0-35.0) pg MCHC 31.3 (31.0-37.0) g/dl RDW 19.9 H (11.5-14.5) % Plt Count 144 (120.0-450.0) 10^3/uL MPV 11.3 H (7.0-11.0) fl Gran % 92.5 H (50.0-68.0) % Lymph % (Auto) 5.1 L (22.0-35.0) % [place] % (Auto) 2.3 (1.0-6.0) % Eos % (Auto) 0.0 L (1.5-5.0) % Baso % (Auto) 0.1 (0.0-3.0) % Gran # 14.79 H (1.4-6.5) Lymph # (Auto) 0.8 L (1.2-3.4) [place] # (Auto) 0.4 (0.1-0.6) Eos # (Auto) 0.0 (0.0-0.7) Baso # (Auto) 0.01 (0.0-2.0) K/mm3 APTT (25.1-36.5) Seconds Sodium 146 (132-148) mmol/L Potassium 4.2 (3.6-5.0) mmol/L Chloride 114 H (98-107) mmol/L Carbon Dioxide 24 (21-33) mmol/L Anion Gap 12 (10-20) BUN 49 H (7-21) mg/dL Creatinine 1.8 H (0.7-1.2) mg/dl Est GFR ( Amer) 34 Est GFR (Non-Af Amer) 28 POC Glucose (mg/dL) 280 H (65-110) mg/dL Random Glucose 275 H (70-110) mg/dL Calcium 8.3 L (8.4-10.5) mg/dL Phosphorus 3.5 (2.5-4.5) mg/dL Magnesium 1.6 L (1.7-2.2) mg/dL Total Bilirubin 0.4 (0.2-1.3) mg/dL AST 20 (14-36) U/L ALT 25 (7-56) U/L Alkaline Phosphatase 115 (38-126) U/L Total Protein 5.8 (5.8-8.3) g/dL Albumin 2.5 L (3.0-4.8) g/dL Globulin 3.3 gm/dL Albumin/Globulin Ratio 0.8 L (1.1-1.8) Crossmatch 04/17/18 04/17/18 04/16/18 Range/Units 02:40 02:15 20:48 WBC (4.5-11.0) 10^3/uL RBC (3.5-6.1) 10^6/uL Hgb (12.0-16.0) g/dL Hct (36.0-48.0) % MCV (80.0-105.0) fl MCH (25.0-35.0) pg MCHC (31.0-37.0) g/dl RDW (11.5-14.5) % Plt Count (120.0-450.0) 10^3/uL MPV (7.0-11.0) fl Gran % (50.0-68.0) % Lymph % (Auto) (22.0-35.0) % [place] % (Auto) (1.0-6.0) % Eos % (Auto) (1.5-5.0) % Baso % (Auto) (0.0-3.0) % Gran # (1.4-6.5) Lymph # (Auto) (1.2-3.4) [place] # (Auto) (0.1-0.6) Eos # (Auto) (0.0-0.7) Baso # (Auto) (0.0-2.0) K/mm3 APTT > 400.0 H* (25.1-36.5) Seconds Sodium (132-148) mmol/L Potassium (3.6-5.0) mmol/L Chloride (98-107) mmol/L Carbon Dioxide (21-33) mmol/L Anion Gap (10-20) BUN (7-21) mg/dL Creatinine (0.7-1.2) mg/dl Est GFR ( Amer) Est GFR (Non-Af Amer) POC Glucose (mg/dL) 249 H 244 H (65-110) mg/dL Random Glucose (70-110) mg/dL Calcium (8.4-10.5) mg/dL Phosphorus (2.5-4.5) mg/dL Magnesium (1.7-2.2) mg/dL Total Bilirubin (0.2-1.3) mg/dL AST (14-36) U/L ALT (7-56) U/L Alkaline Phosphatase (38-126) U/L Total Protein (5.8-8.3) g/dL Albumin (3.0-4.8) g/dL Globulin gm/dL Albumin/Globulin Ratio (1.1-1.8) Crossmatch 04/16/18 04/16/18 04/16/18 Range/Units 18:15 11:22 05:59 WBC (4.5-11.0) 10^3/uL RBC (3.5-6.1) 10^6/uL Hgb (12.0-16.0) g/dL Hct (36.0-48.0) % MCV (80.0-105.0) fl MCH (25.0-35.0) pg MCHC (31.0-37.0) g/dl RDW (11.5-14.5) % Plt Count 143 (120.0-450.0) 10^3/uL MPV (7.0-11.0) fl Gran % (50.0-68.0) % Lymph % (Auto) (22.0-35.0) % [place] % (Auto) (1.0-6.0) % Eos % (Auto) (1.5-5.0) % Baso % (Auto) (0.0-3.0) % Gran # (1.4-6.5) Lymph # (Auto) (1.2-3.4) [place] # (Auto) (0.1-0.6) Eos # (Auto) (0.0-0.7) Baso # (Auto) (0.0-2.0) K/mm3 APTT (25.1-36.5) Seconds Sodium (132-148) mmol/L Potassium (3.6-5.0) mmol/L Chloride (98-107) mmol/L Carbon Dioxide (21-33) mmol/L Anion Gap (10-20) BUN (7-21) mg/dL Creatinine (0.7-1.2) mg/dl Est GFR ( Amer) Est GFR (Non-Af Amer) POC Glucose (mg/dL) 266 H 212 H (65-110) mg/dL Random Glucose (70-110) mg/dL Calcium (8.4-10.5) mg/dL Phosphorus (2.5-4.5) mg/dL Magnesium (1.7-2.2) mg/dL Total Bilirubin (0.2-1.3) mg/dL AST (14-36) U/L ALT (7-56) U/L Alkaline Phosphatase (38-126) U/L Total Protein (5.8-8.3) g/dL Albumin (3.0-4.8) g/dL Globulin gm/dL Albumin/Globulin Ratio (1.1-1.8) Crossmatch 04/13/18 Range/Units 14:00 WBC (4.5-11.0) 10^3/uL RBC (3.5-6.1) 10^6/uL Hgb (12.0-16.0) g/dL Hct (36.0-48.0) % MCV (80.0-105.0) fl MCH (25.0-35.0) pg MCHC (31.0-37.0) g/dl RDW (11.5-14.5) % Plt Count (120.0-450.0) 10^3/uL MPV (7.0-11.0) fl Gran % (50.0-68.0) % Lymph % (Auto) (22.0-35.0) % [place] % (Auto) (1.0-6.0) % Eos % (Auto) (1.5-5.0) % Baso % (Auto) (0.0-3.0) % Gran # (1.4-6.5) Lymph # (Auto) (1.2-3.4) [place] # (Auto) (0.1-0.6) Eos # (Auto) (0.0-0.7) Baso # (Auto) (0.0-2.0) K/mm3 APTT (25.1-36.5) Seconds Sodium (132-148) mmol/L Potassium (3.6-5.0) mmol/L Chloride (98-107) mmol/L Carbon Dioxide (21-33) mmol/L Anion Gap (10-20) BUN (7-21) mg/dL Creatinine (0.7-1.2) mg/dl Est GFR ( Amer) Est GFR (Non-Af Amer) POC Glucose (mg/dL) (65-110) mg/dL Random Glucose (70-110) mg/dL Calcium (8.4-10.5) mg/dL Phosphorus (2.5-4.5) mg/dL Magnesium (1.7-2.2) mg/dL Total Bilirubin (0.2-1.3) mg/dL AST (14-36) U/L ALT (7-56) U/L Alkaline Phosphatase (38-126) U/L Total Protein (5.8-8.3) g/dL Albumin (3.0-4.8) g/dL Globulin gm/dL Albumin/Globulin Ratio (1.1-1.8) Crossmatch See Detail Laboratory Results - last 24 hr 04/13/18 04/16/18 04/16/18 14:00 05:59 11:22 WBC RBC Hgb Hct MCV MCH MCHC RDW Plt Count 143 MPV Gran % Lymph % (Auto) [place] % (Auto) Eos % (Auto) Baso % (Auto) Gran # Lymph # (Auto) [place] # (Auto) Eos # (Auto) Baso # (Auto) APTT Sodium Potassium Chloride Carbon Dioxide Anion Gap BUN Creatinine Est GFR ( Amer) Est GFR (Non-Af Amer) POC Glucose (mg/dL) 212 H Random Glucose Calcium Phosphorus Magnesium Total Bilirubin AST ALT Alkaline Phosphatase Total Protein Albumin Globulin Albumin/Globulin Ratio Crossmatch See Detail 04/16/18 04/16/18 04/17/18 18:15 20:48 02:15 WBC RBC Hgb Hct MCV MCH MCHC RDW Plt Count MPV Gran % Lymph % (Auto) [place] % (Auto) Eos % (Auto) Baso % (Auto) Gran # Lymph # (Auto) [place] # (Auto) Eos # (Auto) Baso # (Auto) APTT Sodium Potassium Chloride Carbon Dioxide Anion Gap BUN Creatinine Est GFR ( Amer) Est GFR (Non-Af Amer) POC Glucose (mg/dL) 266 H 244 H 249 H Random Glucose Calcium Phosphorus Magnesium Total Bilirubin AST ALT Alkaline Phosphatase Total Protein Albumin Globulin Albumin/Globulin Ratio Crossmatch 04/17/18 04/17/18 04/17/18 02:40 06:20 06:20 WBC 16.0 H D RBC 3.25 L Hgb 8.8 L Hct 28.1 L MCV 86.5 MCH 27.1 MCHC 31.3 RDW 19.9 H Plt Count 144 MPV 11.3 H Gran % 92.5 H Lymph % (Auto) 5.1 L [place] % (Auto) 2.3 Eos % (Auto) 0.0 L Baso % (Auto) 0.1 Gran # 14.79 H Lymph # (Auto) 0.8 L [place] # (Auto) 0.4 Eos # (Auto) 0.0 Baso # (Auto) 0.01 APTT > 400.0 H* Sodium 146 Potassium 4.2 Chloride 114 H Carbon Dioxide 24 Anion Gap 12 BUN 49 H Creatinine 1.8 H Est GFR ( Amer) 34 Est GFR (Non-Af Amer) 28 POC Glucose (mg/dL) Random Glucose 275 H Calcium 8.3 L Phosphorus 3.5 Magnesium 1.6 L Total Bilirubin 0.4 AST 20 ALT 25 Alkaline Phosphatase 115 Total Protein 5.8 Albumin 2.5 L Globulin 3.3 Albumin/Globulin Ratio 0.8 L Crossmatch 04/17/18 08:02 WBC RBC Hgb Hct MCV MCH MCHC RDW Plt Count MPV Gran % Lymph % (Auto) [place] % (Auto) Eos % (Auto) Baso % (Auto) Gran # Lymph # (Auto) [place] # (Auto) Eos # (Auto) Baso # (Auto) APTT Sodium Potassium Chloride Carbon Dioxide Anion Gap BUN Creatinine Est GFR ( Amer) Est GFR (Non-Af Amer) POC Glucose (mg/dL) 280 H Random Glucose Calcium Phosphorus Magnesium Total Bilirubin AST ALT Alkaline Phosphatase Total Protein Albumin Globulin Albumin/Globulin Ratio Crossmatch Critical Care Progress Note - Nutrition Nutrition: Nutrition Category Date Time Status Liquid Diet [DIET] Diets 04/16/18 Breakfast Ordered Attending/Attestation - Attestation I have personally seen and examined this patient.: Yes I have fully participated in the care of the patient.: Yes I have reviewed all pertinent clinical information: Yes Notes (Text): 04/17/18 09:34 The patient was seen and examined at the bedside. Patient care was discussed with resident Medical records, lab studies were reviewed and management issues were discussed and formulated. Last 24H events reviewed. Agree with above treatment plans as outlined in 's note with addition of the following: Respiratory Failure \ Hypoxemia \ COPD \ SUMMER \ OHS \ NSTEMI \ HTN \ CKD \ DM 2 \ Colorectal CA \ Sepsis \ho PE and DVT \ s\p Abdominal Surgery -hemodynamic monitoring to maintain MAP>65 -cardiology team following; continue anti-HTN regiment -o2 supplementation with High-flow NC to maintain Spo2 90-92 Pao2>60; Bipap QHS (pt refused last night) -continue nebs taper steroids -continue Abx as per ID team and f\u cultures -f\u Bun\Cr and U\o; monitor and replace e-lites -advance PO diet as per surgical team; continue and aspiration precautions -ISS and BGM monitoring -Heme\Onc f\u -surgical team f\u -continue heparin drip as per protocol and monitor PTT and for bleeding -DVT \ PUD prophylaxis CCM time 31min
[2018-04-17] MEDS: MethylPREDNISolone 40 mg Vial IVP SCH ×2 (08:59→21:59)
[2018-04-17] MEDS: Cefepime IV 2 gm in NS 2 GM/100 ML BAG IVPB SCH (09:02)
[2018-04-17] MEDS: Furosemide 40 mg/5 mL Oral Soln UD PO SCH (09:04)
[2018-04-17] MEDS: Metoprolol Succinate 100 mg XL Tab PO SCH (10:06)
--- NOTE | 2018-04-17 11:01 | PN ---
DATE: 04/17/2018 REASON FOR CONSULTATION AND FOLLOWUP: Cardiac evaluation, preop and postop followup, coronary artery disease, non-ST segment myocardial infarction, acute renal failure, acute abdomen status post exploratory laparotomy, respiratory failure, now successfully extubated. SUBJECTIVE: The patient denies any chest pain, shortness of breath or any palpitations. Feels a lot better. Blood pressure is poorly controlled. OBJECTIVE: GENERAL: Not in apparent distress. VITAL SIGNS: Temperature afebrile, heart rate 78, blood pressure 172/64. HEENT: PERRLA. Extraocular muscles intact. NECK: Supple. No carotid bruit or thyromegaly. CHEST: Clear to auscultation. HEART: S1, S2 regular. ABDOMEN: Soft. EXTREMITIES: Clubbing and cyanosis negative. LABORATORY DATA: Blood workup as follows: WBC 16, hemoglobin 8.8, hematocrit 28.1 and platelet count 144. Chemistry shows sodium 140, potassium 4.2, chloride 114, carbon dioxide 24, anion gap of 12, BUN 49, creatinine 1.8. IMPRESSION: A 62-year-old morbidly obese female with past medical history significant for hypertension, coronary artery disease, pulmonary embolism in the past, history of rectal cancer status post carcinoma resection and colostomy who admitted a few days ago transfer from the longterm because of abdomen pain. Initially plan was to treat conservatively but later on in the weekend the patient developed acute abdomen so exploratory laparotomy was done, hernia repair and lysis of adhesions and revision of the colostomy was done. Perioperative course was complicated by non-ST segment myocardial infarction before the surgery, now the patient is asymptomatic and stable. Only the blood pressure is controlled, successfully extubated. The patient had echo done the day before yesterday that shows left ventricular ejection fraction 65 to 70%, left ventricular hypertrophy, trace aortic regurgitation, aortic stenosis versus mild sclerosis, trace mitral regurgitation, moderate tricuspid regurgitation, dilated right ventricle, echo dated 04/15/2018. Though, it was available in [employer], in the 8-minute system, not transmitted to the [employer] possibly some computer glitch. RECOMMENDATIONS: Aggressively control off blood pressure, add Glucerna shake to increase nutritional support because the patient has a protein-calorie malnutrition, [id number]. Albumin level is 2.2, which was not present on admission. Continue clonidine patch #3, hydralazine 50 mg p.o. t.i.d., if not, we will increase 100 b.i.d., change to 100 b.i.d. Add on Norvasc 10 mg daily, increase Imdur to 60 mg daily, metoprolol 50 b.i.d. We will follow with you. Overall patient is improving. Thank you Dr. Florian for providing us the opportunity in taking care of the patient, Pedro Guevara. Pamela Guerrero MD
--- NOTE | 2018-04-17 12:18 | CP.PCM.PN ---
Subjective - Date & Time of Evaluation Date of Evaluation: 04/17/18 Time of Evaluation: 10:00 - Subjective Subjective: General Surgery Dr. Mckeon Pt S&E @bedside. Pt started on CLD yesterday, tolerated well. No acute events overnight. pt reports improved pain. denies F/C, N/V, D/C. Objective - Vital Signs/Intake and Output Vital Signs (last 24 hours): Temp Pulse Resp BP Pulse Ox 98.2 F 74 42 H 123/47 L 100 04/17/18 00:00 04/17/18 10:06 04/17/18 05:10 04/17/18 10:06 04/17/18 04:40 Intake and Output: 04/17/18 04/17/18 06:59 18:59 Intake Total 458 100 Output Total 520 Balance -62 100 - Medications Medications: Current Medications Amlodipine Besylate (Norvasc) 10 mg PO DAILY [facility] Last Admin: 04/17/18 09:03 Dose: 10 mg Arformoterol Tartrate (Brovana) 15 mcg IH [id number] [facility] Last Admin: 04/17/18 08:02 Dose: 15 mcg Budesonide (Pulmicort Respules) 0.5 mg IH [id number] [facility] Last Admin: 04/17/18 08:02 Dose: 0.5 mg Clonidine HCl (Catapres-Tts3 0.3 Mg/24 Hr) 1 patch TD Q7D@1000 [facility] Last Admin: 04/11/18 18:17 Dose: 1 patch Docusate Sodium (Colace) 100 mg PO TID [facility] Last Admin: 04/17/18 09:23 Dose: 100 mg Furosemide (Lasix) 40 mg PO DAILY [facility] Last Admin: 04/17/18 09:04 Dose: 40 mg Hydralazine HCl (Apresoline) 50 mg PO TID [facility] Last Admin: 04/17/18 09:23 Dose: Not Given Hydralazine HCl (Apresoline) 10 mg IVP Q6 PRN PRN Reason: for sbp>160 Last Admin: 04/17/18 06:21 Dose: 10 mg Hydromorphone HCl (Dilaudid) 0.5 mg IVP Q2H PRN PRN Reason: Pain, Mild (1-3) Last Admin: 04/17/18 11:36 Dose: 0.5 mg Hydromorphone HCl (Dilaudid) 0.5 mg IVP Q4H PRN PRN Reason: Pain, severe (8-10) Heparin Sodium/Sodium Chloride (Heparin 75917 Units/250ml 1/2 Normal Saline) 25,000 units in 250 mls @ 16.346 mls/hr IV .[id number] [facility]; Protocol Last Admin: 04/17/18 07:56 Dose: 9 units/kg/hr, 12.259 mls/hr Cefepime HCl (Maxipime 2gm) 2 gm in 100 mls @ 25 mls/hr IVPB DAILY [facility]; Protocol Stop: 04/18/18 10:01 Last Admin: 04/17/18 09:02 Dose: 25 mls/hr Metronidazole (Flagyl) 500 mg in 100 mls @ 100 mls/hr IVPB Q8 [facility]; Protocol Last Admin: 04/17/18 05:48 Dose: 100 mls/hr Insulin Human Regular (Humulin R High) 0 units SC ACHS [facility]; Protocol Isosorbide Mononitrate (Imdur Er) 60 mg PO DAILY [facility] Last Admin: 04/17/18 10:07 Dose: 30 mg Levalbuterol HCl (Xopenex) 1.25 mg IH [id number] PRN PRN Reason: Shortness of Breath Last Admin: 04/16/18 13:42 Dose: 1.25 mg Methylprednisolone (Solu-Medrol) 20 mg IVP Q12 [facility] Last Admin: 04/17/18 08:59 Dose: 20 mg Metoprolol Succinate (Toprol Xl) 100 mg PO BRK [facility] Last Admin: 04/17/18 10:06 Dose: 100 mg Ondansetron HCl (Zofran Inj) 4 mg IVP Q6H PRN PRN Reason: Nausea/Vomiting Last Admin: 04/11/18 12:10 Dose: 4 mg Pantoprazole Sodium (Protonix Inj) 40 mg IVP DAILY [facility] Last Admin: 04/17/18 09:09 Dose: 40 mg - Labs Labs: 04/17/18 06:20 04/17/18 06:20 PT 19.0 SECONDS (9.4-12.5) H 04/14/18 05:30 INR 1.64 04/14/18 05:30 APTT 46.6 Seconds (25.1-36.5) H 04/17/18 11:00 - Constitutional Appears: Non-toxic, No Acute Distress - Head Exam Head Exam: NORMAL INSPECTION - Eye Exam Eye Exam: Normal appearance - ENT Exam ENT Exam: Mucous Membranes Moist - Respiratory Exam Respiratory Exam: NORMAL BREATHING PATTERN. absent: Accessory Muscle Use, Respiratory Distress - Cardiovascular Exam Cardiovascular Exam: absent: Bradycardia, Tachycardia - GI/Abdominal Exam GI & Abdominal Exam: Distended (obese), Soft, Tenderness (appropriate TTP ely- incisional). absent: Firm, Guarding, Rigid, Rebound Additional comments: dressing c/d/i martin w/ serosanguinous drainage stoma pink, patent. mucous fistula w/ clear mucous. - Extremities Exam Extremities Exam: Normal Inspection - Neurological Exam Neurological Exam: Alert, Awake, Oriented x3 - Psychiatric Exam Psychiatric exam: Normal Affect, Normal Mood - Skin Skin Exam: Dry, Normal Color, Warm Assessment and Plan - Assessment and Plan (Free Text) Assessment: 62 y/o F w/ small bowel obstruction POD#3 s/p ex-lap, lysis of adhesions, ventral hernia repair with mesh, colostomy revision w/ mucous fistula Plan: - advance diet as tolerated - d/c IVF if tolerating adequate PO - cont Abx per ID - strict Is&Os - monitor bowel fxn - Wean off High flow O2 - DVT/GI ppx Pt discussed w/ Dr. Mike Wilkinson DO PGY3
[2018-04-17] MEDS ORDERED: Darbepoetin Alfa 100 mcg/ml Inj SC ONE (12:56)
--- NOTE | 2018-04-17 14:07 | PN ---
DATE: 04/17/2018 SUBJECTIVE: The patient is comfortable, no distress. She is better. She is eating, tolerating food, no vomiting. Afebrile. No respiratory distress. Day #3 postoperatively. She is doing very well. She is still complaining of pain in the abdominal area. The patient has difficulty sitting on the chair because of her rectal pain, states ____ which is chronic. PHYSICAL EXAMINATION: VITAL SIGNS: Temperature 98, heart rate 75, blood pressure 158/60, respiration 19. HEAD AND NECK: Normal. No JVD, no thyromegaly. CHEST: Clear bilaterally. CARDIAC: First sound and second sound normal. ABDOMEN: Soft, obese. There is tenderness in the midline and upper abdomen. EXTREMITIES: No edema. The patient has SCDs on lower extremity. NEUROLOGIC: Normal. LABORATORY STUDY: Shows white count 21.2, hemoglobin 9.2, hematocrit 29.5 platelets 143. Chemistry: Sodium 146, potassium 4.1, chloride 116, bicarb 23, BUN 56, creatinine 1.7, blood sugar 241, calcium 8.1. Liver function test is normal. Total bilirubin, AST, ALT, alkaline phosphatase, the total protein 5.5, the albumin 2.4 which is low. IMPRESSION AND PLAN: 1. Incarcerated abdominal wall hernia, status post reduction and surgical closure of the defect, doing better, tolerating diet. No vomiting. 2. Generalized weakness, deconditioned. The patient was advised to get donut to sit on the chair and to start moving around. 3. Chronic obstructive pulmonary disease, morbid obesity, obstructive sleep apnea. Continue BiPAP. Continue inhaled and IV bronchodilators. 4. Hypertension, difficult to control. 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 The patient also getting hydralazine and she is getting Norvasc 10 mg daily and Lopressor 50 mg b.i.d. We will continue current therapy for now. 5. Questionable intraabdominal infection. Continue Maxipime, continue Flagyl, see doing okay. 6. Insulin-dependent diabetes. Continue insulin coverage. The patient will do well after that. 7. Coronary heart disease, status post non-ST elevation myocardial infarction. Continue current therapy, baby aspirin will be added and we will follow up clinically. Continue current therapy. Follow up clinically. Elroy Florian MD [facility] # [id number]
--- NOTE | 2018-04-17 14:07 | CP.PCM.PN ---
Subjective - Date & Time of Evaluation Date of Evaluation: 04/17/18 Time of Evaluation: 14:07 - Subjective Subjective: Hematology/Oncology Progress Note Patient seen and assessed at bedside in ICU. No acute events noted overnight. Patient noticeably more engaging in conversation and appears to be more comfortable. She does still endorse mild abdominal pain that she states limits her time spent sitting upright in the chair. She denies any other complaints at this time including fevers, chills, headache, chest pain, SOB, cough, N/V/D/C, changes in urine output, skin changes or any numbness/tingling of any extremity. Objective - Vital Signs/Intake and Output Vital Signs (last 24 hours): Temp Pulse Resp BP Pulse Ox 98.2 F 71 42 H 154/50 H 100 04/17/18 00:00 04/17/18 13:57 04/17/18 05:10 04/17/18 13:57 04/17/18 04:40 Intake and Output: 04/17/18 04/17/18 06:59 18:59 Intake Total 458 350 Output Total 520 Balance -62 350 - Medications Medications: Current Medications Amlodipine Besylate (Norvasc) 10 mg PO DAILY [facility] Last Admin: 04/17/18 09:03 Dose: 10 mg Arformoterol Tartrate (Brovana) 15 mcg IH [id number] [facility] Last Admin: 04/17/18 08:02 Dose: 15 mcg Aspirin (Ecotrin) 81 mg PO DAILY [facility] Last Admin: 04/17/18 14:01 Dose: 81 mg Atorvastatin Calcium (Lipitor) 10 mg PO DIN [facility] Budesonide (Pulmicort Respules) 0.5 mg IH [id number] [facility] Last Admin: 04/17/18 08:02 Dose: 0.5 mg Clonidine HCl (Catapres-Tts3 0.3 Mg/24 Hr) 1 patch TD Q7D@1000 [facility] Last Admin: 04/11/18 18:17 Dose: 1 patch Docusate Sodium (Colace) 100 mg PO TID [facility] Last Admin: 04/17/18 13:57 Dose: 100 mg Furosemide (Lasix) 40 mg PO DAILY [facility] Last Admin: 04/17/18 09:04 Dose: 40 mg Hydralazine HCl (Apresoline) 50 mg PO TID [facility] Last Admin: 04/17/18 13:57 Dose: 50 mg Hydralazine HCl (Apresoline) 10 mg IVP Q6 PRN PRN Reason: for sbp>160 Last Admin: 04/17/18 06:21 Dose: 10 mg Hydromorphone HCl (Dilaudid) 0.5 mg IVP Q2H PRN PRN Reason: Pain, Mild (1-3) Last Admin: 04/17/18 11:36 Dose: 0.5 mg Hydromorphone HCl (Dilaudid) 0.5 mg IVP Q4H PRN PRN Reason: Pain, severe (8-10) Heparin Sodium/Sodium Chloride (Heparin 11834 Units/250ml 1/2 Normal Saline) 25,000 units in 250 mls @ 16.346 mls/hr IV .[id number] [facility]; Protocol Last Admin: 04/17/18 13:55 Dose: 11 units/kg/hr, 14.984 mls/hr Cefepime HCl (Maxipime 2gm) 2 gm in 100 mls @ 25 mls/hr IVPB DAILY [facility]; Protocol Stop: 04/18/18 10:01 Last Admin: 04/17/18 09:02 Dose: 25 mls/hr Metronidazole (Flagyl) 500 mg in 100 mls @ 100 mls/hr IVPB Q8 [facility]; Protocol Last Admin: 04/17/18 13:59 Dose: 100 mls/hr Insulin Human Regular (Humulin R High) 0 units SC ACHS [facility]; Protocol Isosorbide Mononitrate (Imdur Er) 60 mg PO DAILY [facility] Last Admin: 04/17/18 10:07 Dose: 30 mg Levalbuterol HCl (Xopenex) 1.25 mg IH [id number] PRN PRN Reason: Shortness of Breath Last Admin: 04/16/18 13:42 Dose: 1.25 mg Methylprednisolone (Solu-Medrol) 20 mg IVP Q12 [facility] Last Admin: 04/17/18 08:59 Dose: 20 mg Metoprolol Succinate (Toprol Xl) 100 mg PO BRK [facility] Last Admin: 04/17/18 10:06 Dose: 100 mg Ondansetron HCl (Zofran Inj) 4 mg IVP Q6H PRN PRN Reason: Nausea/Vomiting Last Admin: 04/11/18 12:10 Dose: 4 mg Pantoprazole Sodium (Protonix Inj) 40 mg IVP DAILY [facility] Last Admin: 04/17/18 09:09 Dose: 40 mg - Labs Labs: 04/17/18 06:20 04/17/18 06:20 PT 19.0 SECONDS (9.4-12.5) H 04/14/18 05:30 INR 1.64 04/14/18 05:30 APTT 46.6 Seconds (25.1-36.5) H 04/17/18 11:00 - Additional Findings Additional findings: - Constitutional Appears: Non-toxic, No Acute Distress - Head Exam Head Exam: ATRAUMATIC, NORMOCEPHALIC - Eye Exam Eye Exam: EOMI, Normal appearance - ENT Exam ENT Exam: Mucous Membranes Moist - Neck Exam Neck exam: Positive for: Full Rom, Normal Inspection. Negative for: Lymphadenopathy, Meningismus, Tenderness, Thyromegaly - Respiratory Exam Respiratory Exam: Clear to Auscultation Bilateral, NORMAL BREATHING PATTERN. absent: Accessory Muscle Use, Decreased Breath Sounds, Rales, Rhonchi, Wheezes, Respiratory Distress - Cardiovascular Exam Cardiovascular Exam: REGULAR RHYTHM, RRR, +S1, +S2. 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 Hematology/Oncology was consulted for her history of rectal adenocarcinoma and anemia. Plan: -H/H (04/17): 8.8/28.1 (Baseline: 9.5-10.0) -Iron Studies reviewed -Vitamin B12/Folate/Lead: within normal limits -Anemia likely secondary to LANEY and CKD -S/P transfusion of two units of pRBC's -S/P one dose of IV Venofer and SC Anaresp; Will give additional doses of both Aranesp SC and IV Venofer 200mg -Continue to monitor with daily CBC's -Continue management as per Surgery, GI, Cardiology and Primary teams -Further recommendations as per Dr. Faye Patient seen and case discussed with attending, Dr. Faye. Jeff Perez PGY2
--- NOTE | 2018-04-17 15:56 | CP.PCM.PN ---
Subjective - Date & Time of Evaluation Date of Evaluation: 04/17/18 Time of Evaluation: 15:55 - Subjective Subjective: Nephrology Consultation Note: Assessment: stable SBO s/p ex lap Acute Kidney Injury (N17.9) likely pre-renal state HTN urgency, hyperkalemia left adrenal adenoma, Rt renal hyperdense cyst chronic hypercapnic respi failure Diabetic chronic Kidney Disease (E11.22) Hypertensive Chronic Kidney Disease (I12.9) Chronic Kidney Disease (N18.3) Stage 3 with 2.4 gm proteinuria (R80.9) likely due to DM/HTN/Obesity Anemia Vit D def morbid obesity, CAD s/p stent, COPD/SUMMER, rectal ca s/p colostomy Plan No acute need for renal replacement therapy at this time. HTN better controlled on clonidine patch. norvasc 10 mg/day.metoprolol, hydralazine and imdur. added lasix 40/day and losartan 50 mg/day Monitor Input/Output, daily weights and renal function with basic metabolic panel pulmonary and surgery following defer management of anemia to heme/onc. due to hx of malignancy, will defer use of ESAs. PRBC as needed supplement lytes as needed Adrenal adenoma work up with plasma renin/aldosterone, plasma metanephrine NEGATIVE. outpt 1 mg dexa suppression test repeat renal sono in 6 months to assess her Rt renal cyst Dose meds/antibiotics for reduced GFR. Avoid fleets enema/magnesium based laxatives. Avoid nephrotoxins/NSAIDs/ iodinated contrast (unless needed emergently) Glycemic control Further work up/management as per primary team Thanks for allowing me to participate in care of your patient. Will follow patient with you. Please call if any Qs. had d/w team Dr Dae Dawn Office: [phone] Chief Complaint; abdomen pain Reason for consult: Acute Kidney Injury, CKD 3 HPI: Pt is a 62 F with hx of diabetes Mellitus (15 years), hypertension (years), CKD 3 with baseline cr 1.2-1.3 with AKIs, morbid obesity, CAD s/p stent, COPD/SUMMER on CPAP, rectal ca s/p colostomy presented with complaints of abdomen pain with nausea/vomiting. renal consult for CKD and SHELBI management. pt has no urine complaints. found to have partial SBO Denies OTC/herbal meds or NSAIDs No recent iodinated contrast exposure. No obvious episodes of low BP. ROS: pt extubated. feels better. tolerating liquid diet Physical Examination: General Appearance: comfortable,morbidly obese. better appearing Vitals reviewed and noted as below Head; Atraumatic, normocephalic ENT: on BiPAP EYES: Pupils are equal, round and reactive to light accommodation. Eye muscles and extraocular movement intact. Sclera is anicteric. Neck; supple no lymphadenopathy, no thyromegaly or bruit Lungs: Normal respiratory rate/effort. Breath sounds bilateral equal, diminished at bases Heart: normal rate. s1s2 normal. No rub or gallop. Extremities: 2+ edema. No varicose veins Neurological: Patient is sedated Skin: Warm and dry. Normal turgor. No rash. Palpitation: Normal elasticity for age Abdomen: Abdomen is s/p ex lap Psych: deferred MSK: no joint tenderness or swelling. Digits and nails normal, no deformity : kidney or bladder not palpable Labs/imaging reviewed. Past medical history, past surgical history, family history, social history, allergy reviewed and noted as below Family hx: no hx of CKD. Rest non-contributory PET CT 04/2017: neg CT abdomen: left adrenal adenoma 1.9 cm Rt kidney 2.6 cm hyperdense cyst UA 100 protein, neg for blood renin and roma low, metanehrine WNL PTH 133 Vit D 27 ANCA neg, K/L ratio WNL Objective - Vital Signs/Intake and Output Vital Signs (last 24 hours): Temp Pulse Resp BP Pulse Ox 98.1 F 68 54 H 162/63 H 98 04/17/18 12:00 04/17/18 15:10 04/17/18 15:10 04/17/18 14:30 04/17/18 15:10 Intake and Output: 04/17/18 04/17/18 06:59 18:59 Intake Total 458 350 Output Total 520 Balance -62 350 - Medications Medications: Current Medications Amlodipine Besylate (Norvasc) 10 mg PO DAILY [facility] Last Admin: 04/17/18 09:03 Dose: 10 mg Arformoterol Tartrate (Brovana) 15 mcg IH [id number] [facility] Last Admin: 04/17/18 08:02 Dose: 15 mcg Aspirin (Ecotrin) 81 mg PO DAILY [facility] Last Admin: 04/17/18 14:01 Dose: 81 mg Atorvastatin Calcium (Lipitor) 10 mg PO DIN [facility] Budesonide (Pulmicort Respules) 0.5 mg IH [id number] [facility] Last Admin: 04/17/18 08:02 Dose: 0.5 mg Clonidine HCl (Catapres-Tts3 0.3 Mg/24 Hr) 1 patch TD Q7D@1000 [facility] Last Admin: 04/11/18 18:17 Dose: 1 patch Docusate Sodium (Colace) 100 mg PO TID [facility] Last Admin: 04/17/18 13:57 Dose: 100 mg Furosemide (Lasix) 40 mg PO DAILY [facility] Last Admin: 04/17/18 09:04 Dose: 40 mg Hydralazine HCl (Apresoline) 50 mg PO TID [facility] Last Admin: 04/17/18 13:57 Dose: 50 mg Hydralazine HCl (Apresoline) 10 mg IVP Q6 PRN PRN Reason: for sbp>160 Last Admin: 04/17/18 06:21 Dose: 10 mg Hydromorphone HCl (Dilaudid) 0.5 mg IVP Q2H PRN PRN Reason: Pain, Mild (1-3) Last Admin: 04/17/18 11:36 Dose: 0.5 mg Hydromorphone HCl (Dilaudid) 0.5 mg IVP Q4H PRN PRN Reason: Pain, severe (8-10) Heparin Sodium/Sodium Chloride (Heparin 14776 Units/250ml 1/2 Normal Saline) 25,000 units in 250 mls @ 16.346 mls/hr IV .[id number] [facility]; Protocol Last Admin: 04/17/18 13:55 Dose: 11 units/kg/hr, 14.984 mls/hr Cefepime HCl (Maxipime 2gm) 2 gm in 100 mls @ 25 mls/hr IVPB DAILY [facility]; Protocol Stop: 04/18/18 10:01 Last Admin: 04/17/18 09:02 Dose: 25 mls/hr Metronidazole (Flagyl) 500 mg in 100 mls @ 100 mls/hr IVPB Q8 [facility]; Protocol Last Admin: 04/17/18 13:59 Dose: 100 mls/hr Insulin Human Regular (Humulin R High) 0 units SC ACHS [facility]; Protocol Isosorbide Mononitrate (Imdur Er) 60 mg PO DAILY [facility] Last Admin: 04/17/18 10:07 Dose: 30 mg Levalbuterol HCl (Xopenex) 1.25 mg IH [id number] PRN PRN Reason: Shortness of Breath Last Admin: 04/16/18 13:42 Dose: 1.25 mg Losartan Potassium (Cozaar) 50 mg PO DAILY [facility] Methylprednisolone (Solu-Medrol) 20 mg IVP Q12 [facility] Last Admin: 04/17/18 08:59 Dose: 20 mg Metoprolol Succinate (Toprol Xl) 100 mg PO BRK [facility] Last Admin: 04/17/18 10:06 Dose: 100 mg Ondansetron HCl (Zofran Inj) 4 mg IVP Q6H PRN PRN Reason: Nausea/Vomiting Last Admin: 04/11/18 12:10 Dose: 4 mg Pantoprazole Sodium (Protonix Ec Tab) 40 mg PO ACB [facility] - Labs Labs: 04/17/18 06:20 04/17/18 06:20 PT 19.0 SECONDS (9.4-12.5) H 04/14/18 05:30 INR 1.64 04/14/18 05:30 APTT 46.6 Seconds (25.1-36.5) H 04/17/18 11:00
--- NOTE | 2018-04-17 16:25 | PN ---
DATE: 04/17/2018 PULMONARY PROGRESS NOTE REFERRING PHYSICIAN: Elroy Florian MD. SUBJECTIVE: She is lying in the bed on high-flow oxygen. Feels better. She was out of bed to chair. Overall feels improved. No chest pain. No short of breath with exertion. Still have abdominal pain. No leg pain or leg swelling. OBJECTIVE: VITAL SIGNS: On supplemental oxygen, temperature is 98, heart rate 68, respiratory rate is 22, blood pressure is 162/63, pulse ox 100% on high-flow nasal cannula. HEENT: Moist mucous membrane. Crowded airway. NECK: Short thick neck. LUNGS: Have a fair airflow with rhonchi. HEART: S1 and S2. ABDOMEN: Soft. Mild tenderness. Colostomy bag looks okay. EXTREMITIES: There is no edema. NEUROLOGICAL: Sleepy, arousable. Follows simple command. MEDICATIONS: She is on hydralazine 50 mg three times a day, also every 6 hours hydralazine p.r.n. basis, Brovana inhaled twice a day, Catapres patch every 7 days, Colace 100 mg three times a day, Dilaudid 0.5 mg every 2 hours p.r.n., 0.5 mg every 4 hours p.r.n., Ecotrin 81 mg daily, metronidazole 500 mg IV every 8 hours. She is on IV heparin, also on insulin, Imdur ER 60 mg daily, Lasix 40 mg daily, Lipitor 10 mg daily, cefepime 2 g IV daily, Norvasc 10 mg daily, Protonix 40 mg daily, Pulmicort inhaled twice a day, Solu-Medrol 20 mg every 12 hours, Xopenex inhaled every 6 hours p.r.n., Zofran p.r.n. basis. LABORATORY DATA: Shows hemoglobin 8.8, hematocrit 28.1, WBC 16, platelet is 144. PTT is 46. Sodium 146, potassium 4.2, chloride 114, bicarbonate 24, BUN 49, creatinine 1.8, glucose 278, calcium 8.3, phosphorus is 35, magnesium 1.6, AST 20, ALT 25, alkaline phosphatase is 115. Albumin is 2.5. Urine culture has some yeast. Blood culture has been negative. IMPRESSION AND PLAN: Status post laparotomy for incarcerated hernia and small bowel obstruction, relocation of colostomy, history of rectal carcinoma requiring surgery in the remote past, obesity, pulmonary embolism, deep vein thrombosis, history of hypoventilation syndrome, probably sleep apnea syndrome. Pulmonary point of view, doing well. Continue supplemental oxygen. Keep head at 45 degrees. Bronchodilator, antibiotics as per Infectious Disease. Gastric prophylaxis, deep vein thrombosis prophylaxis, out of bed to chair, physical therapy. Follow up labs in the morning. Critical care time more than 35 minutes. Thank you and we will follow with you. Pamela Ayala MD
[2018-04-17] MEDS: Insulin Reg-HIGH-Coverage SC SCH ×2 (16:49→23:00)
--- NOTE | 2018-04-17 17:44 | CP.PCM.PN ---
Subjective - Date & Time of Evaluation Date of Evaluation: 04/17/18 Time of Evaluation: 09:50 - Subjective Subjective: Will be started on full diet today, no fevers. Objective - Vital Signs/Intake and Output Vital Signs (last 24 hours): Temp Pulse Resp BP Pulse Ox 98.5 F 84 27 H 168/78 H 99 04/16/18 06:00 04/16/18 06:20 04/16/18 06:20 04/16/18 10:34 04/16/18 06:20 Intake and Output: 04/16/18 04/16/18 06:59 18:59 Intake Total 1450 Output Total 1170 Balance 280 - Medications Medications: Current Medications Amlodipine Besylate (Norvasc) 10 mg PO DAILY ON LICENSE OF [facility] Last Admin: 04/16/18 10:34 Dose: 10 mg Arformoterol Tartrate (Brovana) 15 mcg IH [id number] ON LICENSE OF [facility] Last Admin: 04/16/18 07:36 Dose: 15 mcg Budesonide (Pulmicort Respules) 0.5 mg IH [id number] ON LICENSE OF [facility] Last Admin: 04/16/18 07:36 Dose: 0.5 mg Clonidine HCl (Catapres-Tts3 0.3 Mg/24 Hr) 1 patch TD Q7D@1000 ON LICENSE OF [facility] Last Admin: 04/11/18 18:17 Dose: 1 patch Docusate Sodium (Colace) 100 mg PO TID ON LICENSE OF [facility] Last Admin: 04/16/18 09:00 Dose: Not Given Furosemide (Lasix) 40 mg PO DAILY ON LICENSE OF [facility] Hydralazine HCl (Apresoline) 50 mg PO TID ON LICENSE OF [facility] Last Admin: 04/16/18 10:41 Dose: 50 mg Hydralazine HCl (Apresoline) 10 mg IVP Q6 PRN PRN Reason: for sbp>160 Hydromorphone HCl (Dilaudid) 0.5 mg IVP Q2H PRN PRN Reason: Pain, Mild (1-3) Last Admin: 04/16/18 15:36 Dose: 0.5 mg Hydromorphone HCl (Dilaudid) 1 mg IVP Q4H PRN PRN Reason: Pain, severe (8-10) Last Admin: 04/16/18 08:14 Dose: 1 mg Heparin Sodium/Sodium Chloride (Heparin 33149 Units/250ml 1/2 Normal Saline) 25,000 units in 250 mls @ 16.346 mls/hr IV .[id number] JR; Protocol Last Admin: 04/13/18 23:51 Dose: Not Given Cefepime HCl (Maxipime 2gm) 2 gm in 100 mls @ 25 mls/hr IVPB DAILY JR; Protocol Stop: 04/18/18 10:01 Last Admin: 04/16/18 10:36 Dose: 25 mls/hr Metronidazole (Flagyl) 500 mg in 100 mls @ 100 mls/hr IVPB Q8 JR; Protocol Last Admin: 04/16/18 05:44 Dose: 100 mls/hr Insulin Human Regular (Humulin R Low) 0 units SC Q6H JR; Protocol Last Admin: 04/16/18 09:15 Dose: 2 u Isosorbide Mononitrate (Imdur Er) 30 mg PO DAILY ON [facility] OF [facility] Last Admin: 04/16/18 10:38 Dose: 30 mg Levalbuterol HCl (Xopenex) 1.25 mg IH [id number] PRN PRN Reason: Shortness of Breath Last Admin: 04/16/18 13:42 Dose: 1.25 mg Methylprednisolone (Solu-Medrol) 20 mg IVP Q12 JR Last Admin: 04/16/18 10:30 Dose: 20 mg Metoprolol Tartrate (Lopressor) 50 mg PO BID ON LICENSE OF [facility] Last Admin: 04/16/18 10:40 Dose: 50 mg Ondansetron HCl (Zofran Inj) 4 mg IVP Q6H PRN PRN Reason: Nausea/Vomiting Last Admin: 04/11/18 12:10 Dose: 4 mg Pantoprazole Sodium (Protonix Inj) 40 mg IVP DAILY ON [facility] OF [facility] Last Admin: 04/16/18 10:33 Dose: 40 mg - Labs Labs: 04/16/18 05:59 04/16/18 05:59 PT 19.0 SECONDS (9.4-12.5) H 04/14/18 05:30 INR 1.64 04/14/18 05:30 APTT 28.9 Seconds (25.1-36.5) 04/14/18 05:30 - Constitutional Appears: Chronically Ill - Head Exam Head Exam: NORMAL INSPECTION - Respiratory Exam Respiratory Exam: Decreased Breath Sounds - Cardiovascular Exam Cardiovascular Exam: +S1, +S2 - GI/Abdominal Exam GI & Abdominal Exam: Soft. absent: Tenderness Additional comments: dressings and IVETTE drain in place Assessment and Plan - Assessment and Plan (Free Text) Plan: Assessment consider small bowel obstruction in this patient with ventral wall hernia, S/P ventral incarcerated hernia repair, adhesiolysis and revision of colostomy POD #3 acute coronary syndrome with NSTEMI COPD history of VRE UTI history of severe sepsis secondary to left medial thigh abscess, growing Proteus, S/P incision and drainage DM HTN CAD Unresectable rectal cancer S/P chemotherapy and radiation therapy S/P colostomy S/P Port-a-cath placement morbid obesity with BMI 50 obstructive sleep apnea history of pulmonary embolism S/P IVC filter placement Plan continue Cefepime, give intermittent Vancomycin and continue Flagyl day 6 and will continue to monitor clinically - may consider discontinuing antibiotics if patient is tolerating full diet
[2018-04-18] MEDS: HYDROmorphone 0.5 mg/0.5 ml ISec IVP PRN ×4 (02:43→22:00)
[2018-04-18 04:33] LABS: BASO # 0.01 K/mm3 (0.0-2.0); BASO % 0.1 % (0.0-3.0); EOS % 0.1 % (1.5-5.0); GRAN # 11.46 (1.4-6.5); GRAN % 87.8 % (50.0-68.0); HEMOGLOBIN 8.6 g/dL (12.0-16.0); LYMPH # 1.1 (1.2-3.4); LYMPH % 8.4 % (22.0-35.0); MEAN CELL VOLUME 87.7 fl (80.0-105.0); MEAN CORPUSCULAR HEMOGLOBIN 26.5 pg (25.0-35.0); MEAN CORPUSCULAR HGB CONC 30.2 g/dl (31.0-37.0); MEAN PLATELET VOLUME 11.3 fl (7.0-11.0); MONO # 0.5 (0.1-0.6); MONO % 3.6 % (1.0-6.0); RBC 3.25 10^6/uL (3.5-6.1); RED CELL DISTRIBUTION WIDTH 20.2 % (11.5-14.5)
[2018-04-18 04:46] LABS: ALB/GLOB RATIO 0.8 (1.1-1.8); ALBUMIN 2.6 g/dL (3.0-4.8); CALCIUM 8.4 mg/dL (8.4-10.5)
[2018-04-18 04:57] LABS: TROPONIN I 0.08 ng/mL
[2018-04-18] MEDS: Heparin25000 units/250ml 1/2NS 25,000 UNITS/250 ML BAG IV SCH (06:02)
[2018-04-18 06:06] LABS: WHITE BLOOD COUNT 13.1 10^3/uL (4.5-11.0)
[2018-04-18] MEDS: metroNIDAZOLE IV 500 mg/100 ml 500 MG/100 ML BAG IVPB SCH ×2 (06:31→13:18)
[2018-04-18] MEDS: Arformoterol 15 mcg/2 ml Inh Sol IH SCH ×2 (07:50→20:15)
[2018-04-18] MEDS: Budesonide 0.5 mg/2 ml Inhal Susp UD IH SCH ×2 (07:50→20:16)
[2018-04-18] MEDS: Insulin Reg-HIGH-Coverage SC SCH ×4 (08:44→22:02)
[2018-04-18] MEDS ORDERED: Magnesium Sulfate 2 gm/50 ml 2 GM/50 ML BAG IVPB ONE (08:46)
[2018-04-18] MEDS: Pantoprazole 40 mg EC Tab PO SCH (08:46)
[2018-04-18] MEDS: Metoprolol Succinate 100 mg XL Tab PO SCH (08:47)
--- NOTE | 2018-04-18 08:50 | CP.PCM.PN ---
Subjective - Date & Time of Evaluation Date of Evaluation: 04/18/18 Time of Evaluation: 08:47 - Subjective Subjective: General Surgery Dr. Mckeon Pt S&E @bedside. Pt transferred out of ICU yesterday. No acute events overnight. Pt reports decreased ostomy output overnight and continued, unchanged cramping abd pain. Pt denies F/C, N/V, CP, SOB. pain controlled. tolerating diet. Objective - Vital Signs/Intake and Output Vital Signs (last 24 hours): Temp Pulse Resp BP Pulse Ox 98.2 F 72 20 169/66 H 97 04/18/18 00:00 04/18/18 06:00 04/18/18 00:00 04/18/18 00:00 04/18/18 00:00 Intake and Output: 04/18/18 04/18/18 06:59 18:59 Intake Total 1050.0 Output Total 520 Balance 530.0 - Medications Medications: Current Medications Amlodipine Besylate (Norvasc) 10 mg PO DAILY [facility] Last Admin: 04/17/18 09:03 Dose: 10 mg Arformoterol Tartrate (Brovana) 15 mcg IH [id number] [facility] Last Admin: 04/18/18 07:50 Dose: 15 mcg Aspirin (Ecotrin) 81 mg PO DAILY [facility] Last Admin: 04/17/18 14:01 Dose: 81 mg Atorvastatin Calcium (Lipitor) 10 mg PO DIN [facility] Last Admin: 04/17/18 16:49 Dose: 10 mg Budesonide (Pulmicort Respules) 0.5 mg IH [id number] [facility] Last Admin: 04/18/18 07:50 Dose: 0.5 mg Clonidine HCl (Catapres-Tts3 0.3 Mg/24 Hr) 1 patch TD Q7D@1000 [facility] Last Admin: 04/11/18 18:17 Dose: 1 patch Docusate Sodium (Colace) 100 mg PO TID [facility] Last Admin: 04/17/18 17:00 Dose: 100 mg Furosemide (Lasix) 40 mg PO DAILY [facility] Last Admin: 04/17/18 09:04 Dose: 40 mg Hydralazine HCl (Apresoline) 50 mg PO TID [facility] Last Admin: 04/17/18 17:00 Dose: 50 mg Hydralazine HCl (Apresoline) 10 mg IVP Q6 PRN PRN Reason: for sbp>160 Last Admin: 04/17/18 16:09 Dose: 10 mg Hydromorphone HCl (Dilaudid) 0.5 mg IVP Q2H PRN PRN Reason: Pain, Mild (1-3) Last Admin: 04/18/18 06:21 Dose: 0.5 mg Hydromorphone HCl (Dilaudid) 0.5 mg IVP Q4H PRN PRN Reason: Pain, severe (8-10) Last Admin: 04/17/18 17:05 Dose: 0.5 mg Heparin Sodium/Sodium Chloride (Heparin 73255 Units/250ml 1/2 Normal Saline) 25,000 units in 250 mls @ 16.346 mls/hr IV .[id number] [facility]; Protocol Last Admin: 04/18/18 06:02 Dose: 11.81 units/kg/hr, 16.1 mls/hr Cefepime HCl (Maxipime 2gm) 2 gm in 100 mls @ 25 mls/hr IVPB DAILY [facility]; Protocol Stop: 04/18/18 10:01 Last Admin: 04/17/18 09:02 Dose: 25 mls/hr Metronidazole (Flagyl) 500 mg in 100 mls @ 100 mls/hr IVPB Q8 [facility]; Protocol Last Admin: 04/18/18 06:31 Dose: 100 mls/hr Insulin Detemir (Levemir) 10 unit SC HS JR Insulin Human Regular (Humulin R High) 0 units SC ACHS [facility]; Protocol Last Admin: 04/17/18 23:00 Dose: Not Given Isosorbide Mononitrate (Imdur Er) 60 mg PO DAILY [facility] Last Admin: 04/17/18 10:07 Dose: 30 mg Levalbuterol HCl (Xopenex) 1.25 mg IH [id number] PRN PRN Reason: Shortness of Breath Last Admin: 04/16/18 13:42 Dose: 1.25 mg Losartan Potassium (Cozaar) 50 mg PO DAILY [facility] Last Admin: 04/17/18 16:10 Dose: 50 mg Methylprednisolone (Solu-Medrol) 20 mg IVP Q12 [facility] Last Admin: 04/17/18 21:59 Dose: 20 mg Metoprolol Succinate (Toprol Xl) 100 mg PO BRK [facility] Last Admin: 04/17/18 10:06 Dose: 100 mg Ondansetron HCl (Zofran Inj) 4 mg IVP Q6H PRN PRN Reason: Nausea/Vomiting Last Admin: 04/11/18 12:10 Dose: 4 mg Pantoprazole Sodium (Protonix Ec Tab) 40 mg PO ACB JR - Labs Labs: 04/18/18 04:15 04/18/18 04:15 PT 19.0 SECONDS (9.4-12.5) H 04/14/18 05:30 INR 1.64 04/14/18 05:30 APTT 91.0 Seconds (25.1-36.5) H 04/18/18 04:15 - Constitutional Appears: Non-toxic, No Acute Distress - Head Exam Head Exam: NORMAL INSPECTION - Eye Exam Eye Exam: Normal appearance - ENT Exam ENT Exam: Mucous Membranes Moist - Respiratory Exam Respiratory Exam: NORMAL BREATHING PATTERN. absent: Accessory Muscle Use, Respiratory Distress - Cardiovascular Exam Cardiovascular Exam: REGULAR RHYTHM. absent: Bradycardia, Tachycardia - GI/Abdominal Exam GI & Abdominal Exam: Distended (obese), Soft, Tenderness (appropriate TTP ely- incisional). absent: Firm, Guarding, Rigid, Rebound Additional comments: stoma pink, patent stool present in ostomy mucous fistula dressings c/d/i martin w/ serosanguinous drainage - Extremities Exam Extremities Exam: Normal Inspection - Neurological Exam Neurological Exam: Alert, Awake, Oriented x3 - Psychiatric Exam Psychiatric exam: Normal Affect, Normal Mood - Skin Skin Exam: Dry, Normal Color, Warm Assessment and Plan - Assessment and Plan (Free Text) Assessment: 62 y/o F w/ SBO POD#4 s/p ex-lap, RAJESH, ventral hernia repair w/ mesh, revision of colostomy w/ creation of mucous fistula Plan: - cont regular diet as tolerated - cont PO pain management - monitor ostomy, drain, UOP - encourage OOB to chair/Amb/IS use - cont medical management Pt discussed w/ Dr. Mike Wilkinson DO PGY3
[2018-04-18] MEDS: Furosemide 40 mg/5 mL Oral Soln UD PO SCH (09:03)
[2018-04-18] MEDS: MethylPREDNISolone 40 mg Vial IVP SCH ×2 (09:04→22:04)
--- NOTE | 2018-04-18 09:11 | CP.PCM.PN ---
Subjective - Date & Time of Evaluation Date of Evaluation: 04/18/18 Time of Evaluation: 07:05 - Subjective Subjective: Awake, alert, no distress, watching TV Reason for consultation and follow up: Cardiac evaluation of tachycardia, history of coronary artery disease, pre and post follow up, status post surgery for incarcerated hernia and lysis of adhesion, relocation of colostomy, NSTEMI,acute renal failure,respiratory failure post extubation. Seen and examined by me and Dr. Guerrero Objective - Vital Signs/Intake and Output Vital Signs (last 24 hours): Temp Pulse Resp BP Pulse Ox 98 F 75 20 173/63 H 99 04/18/18 08:47 04/18/18 08:47 04/18/18 08:47 04/18/18 08:47 04/18/18 08:47 Intake and Output: 04/18/18 04/18/18 06:59 18:59 Intake Total 1050.0 Output Total 520 Balance 530.0 - Medications Medications: Current Medications Amlodipine Besylate (Norvasc) 10 mg PO DAILY [facility] Last Admin: 04/18/18 08:45 Dose: 10 mg Arformoterol Tartrate (Brovana) 15 mcg IH [id number] [facility] Last Admin: 04/18/18 07:50 Dose: 15 mcg Aspirin (Ecotrin) 81 mg PO DAILY [facility] Last Admin: 04/17/18 14:01 Dose: 81 mg Atorvastatin Calcium (Lipitor) 10 mg PO DIN [facility] Last Admin: 04/17/18 16:49 Dose: 10 mg Budesonide (Pulmicort Respules) 0.5 mg IH [id number] [facility] Last Admin: 04/18/18 07:50 Dose: 0.5 mg Clonidine HCl (Catapres-Tts3 0.3 Mg/24 Hr) 1 patch TD Q7D@1000 [facility] Last Admin: 04/11/18 18:17 Dose: 1 patch Docusate Sodium (Colace) 100 mg PO TID [facility] Last Admin: 04/17/18 17:00 Dose: 100 mg Furosemide (Lasix) 40 mg PO DAILY [facility] Last Admin: 04/17/18 09:04 Dose: 40 mg Hydralazine HCl (Apresoline) 50 mg PO TID [facility] Last Admin: 04/17/18 17:00 Dose: 50 mg Hydralazine HCl (Apresoline) 10 mg IVP Q6 PRN PRN Reason: for sbp>160 Last Admin: 04/17/18 16:09 Dose: 10 mg Hydromorphone HCl (Dilaudid) 0.5 mg IVP Q2H PRN PRN Reason: Pain, Mild (1-3) Last Admin: 04/18/18 06:21 Dose: 0.5 mg Hydromorphone HCl (Dilaudid) 0.5 mg IVP Q4H PRN PRN Reason: Pain, severe (8-10) Last Admin: 04/17/18 17:05 Dose: 0.5 mg Heparin Sodium/Sodium Chloride (Heparin 06839 Units/250ml 1/2 Normal Saline) 25,000 units in 250 mls @ 16.346 mls/hr IV .[id number] [facility]; Protocol Last Admin: 04/18/18 06:02 Dose: 11.81 units/kg/hr, 16.1 mls/hr Cefepime HCl (Maxipime 2gm) 2 gm in 100 mls @ 25 mls/hr IVPB DAILY [facility]; Protocol Stop: 04/18/18 10:01 Last Admin: 04/17/18 09:02 Dose: 25 mls/hr Metronidazole (Flagyl) 500 mg in 100 mls @ 100 mls/hr IVPB Q8 [facility]; Protocol Last Admin: 04/18/18 06:31 Dose: 100 mls/hr Magnesium Sulfate (Magnesium Sulfate 2 Gm/50 Ml Water) 2 gm in 50 mls @ 50 mls/hr IVPB ONCE ONE Stop: 04/18/18 09:45 Insulin Detemir (Levemir) 10 unit SC HS [facility] Insulin Human Regular (Humulin R High) 0 units SC ACHS [facility]; Protocol Last Admin: 04/18/18 08:44 Dose: 7 u Isosorbide Mononitrate (Imdur Er) 60 mg PO DAILY [facility] Last Admin: 04/17/18 10:07 Dose: 30 mg Levalbuterol HCl (Xopenex) 1.25 mg IH [id number] PRN PRN Reason: Shortness of Breath Last Admin: 04/16/18 13:42 Dose: 1.25 mg Losartan Potassium (Cozaar) 50 mg PO DAILY [facility] Last Admin: 04/17/18 16:10 Dose: 50 mg Methylprednisolone (Solu-Medrol) 20 mg IVP Q12 [facility] Last Admin: 04/17/18 21:59 Dose: 20 mg Metoprolol Succinate (Toprol Xl) 100 mg PO BRK [facility] Last Admin: 04/18/18 08:47 Dose: 100 mg Ondansetron HCl (Zofran Inj) 4 mg IVP Q6H PRN PRN Reason: Nausea/Vomiting Last Admin: 04/11/18 12:10 Dose: 4 mg Pantoprazole Sodium (Protonix Ec Tab) 40 mg PO ACB [facility] Last Admin: 04/18/18 08:46 Dose: 40 mg - Labs Labs: 04/18/18 04:15 04/18/18 04:15 PT 19.0 SECONDS (9.4-12.5) H 04/14/18 05:30 INR 1.64 04/14/18 05:30 APTT 91.0 Seconds (25.1-36.5) H 04/18/18 04:15 - Constitutional Appears: Non-toxic, No Acute Distress - Head Exam Head Exam: NORMAL INSPECTION, NORMOCEPHALIC - Eye Exam Eye Exam: Normal appearance Pupil Exam: NORMAL ACCOMODATION - ENT Exam ENT Exam: Mucous Membranes Moist, Normal Exam - Respiratory Exam Respiratory Exam: Decreased Breath Sounds, Clear to Ausculation Bilateral, NORMAL BREATHING PATTERN - Cardiovascular Exam Cardiovascular Exam: REGULAR RHYTHM, +S1, +S2 Additional comments: No JVD right chest criss cath - GI/Abdominal Exam GI & Abdominal Exam: Soft, Normal Bowel Sounds Additional comments: colostomy IVETTE drain Abdominal dressing intact - Exam Additional comments: incontinent - Extremities Exam Additional comments: 3-4+ edema - Neurological Exam Neurological Exam: Alert, Awake, Oriented x3 - Psychiatric Exam Psychiatric exam: Normal Affect, Normal Mood - Skin Skin Exam: Dry, Normal Color, Warm Assessment and Plan - Assessment and Plan (Free Text) Assessment: A 62 year old morbidly obese female who came in from [facility] to the ER due to diffuse abdominal pain and abnormal lab results. History of DVT/PE on Eliquis, COPD, CKD, anemia, colorectal cancer s/p resection with colostomy, CAD with stent placement,hypertension, and chronic back pain. Initial plan of care was to treat conservatively however developed acute abdomen requiring explor laparotomy. Repair of incarcerated hernia, , lysis of adhesions, revision of colostomy was done. Jayda-operatively complicated by NSTEMI, intubated and was transferred to ICU. Stabilized in ICU and now transferred back to telemetry. Plan: Transferred to telemetry from ICU Status post explor lap POD # 4 Heart rate controlled Labile uncontrolled Blood pressure SBP 160's 170's Will increase Hydralazine to 100 mg BID On Amlodipine 10 mg daily,ASA 81 mg daily,Lipitor 10 mg daily, Clonidine patch every week, Lasix 40 mg daily, Apresoline 50 mg BID, Imdur Er 60 mg daily,Cozaar 50 mg daily,Toprol 100 mg daily, Solumedrol 20 mg BID Labetolol 10 mg IV every 6 hours, Solumedrol 30 mg every 12 hours Glucose control Continue IV antibiotics as ordered Clinically improved from baseline [facility] Continue current treatment Continue current medications Chart reviewed Will follow up Plan and treatment discussed with Dr. Guerrero
[2018-04-18] MEDS: Cefepime IV 2 gm in NS 2 GM/100 ML BAG IVPB SCH (11:32)
--- NOTE | 2018-04-18 11:50 | PN ---
DATE: 04/17/2018 LOCATION: ICU. SUBJECTIVE: Patient is sitting on a chair, comfortable. No respiratory distress. No vomiting. She is passing stool through the colostomy. She has no other complaint. Patient is otherwise stable, better than before, hemodynamically controlled. PHYSICAL EXAMINATION: VITAL SIGNS: Temperature 98, heart rate 72, blood pressure 140/53, respirations 19. HEAD AND NECK: Normal. No JVD. No thyromegaly. CHEST: Clear bilateral. CARDIAC: First sound and second sound normal. No murmur, rub, or gallop. ABDOMEN: Obese with tenderness. EXTREMITIES: No edema. NEUROLOGIC: Normal. LABORATORY DATA: As follows: White count 16.7, hemoglobin 8.8, hematocrit 28.1, platelets 144,000. Chemistry: Sodium 146, potassium 4.2, chloride 114, bicarb 24, BUN 49, creatinine is 1.8, blood sugar 280, and calcium 8.3. Magnesium 1.6. Patient had an echocardiogram, which was reviewed and it shows good LV function, pseudonormal diastolic dysfunction. Patient also has a moderate pulmonary hypertension. IMPRESSION AND PLAN: 1. Small bowel obstruction, status post surgery with closure of the hernia and revision of the stoma. Patient doing well, tolerating diet. 2. Non ST-elevation myocardial infarctions, had good left ventricular functions without any obvious wall motion abnormality, although patient has technically difficult study with left ventricular hypertrophy and good systolic function and noted pulmonary hypertension. We will continue the diuretics . Continue Lasix 40 p.o. daily. Currently on beta-joseph, heparin, aspirin, Lipitor. Continue current medications. 3. Chronic obstructive pulmonary disease, obstructive sleep apnea. Continue inhaled bronchodilator on bilevel positive airway pressure machine, tolerating well. 4. Hypertension, better controlled now. She is getting Toprol-XL 100, plus clonidine patch, and hydralazine 50 t.i.d. Patient also was started on Cozaar 50 mg p.o. daily because of associated diabetes, monitor kidney functions. We will discuss present regime with the toy painter. 5. Intra-abdominal infection, possible pneumonia. Continue Maxipime. 6. Patient has underlying chronic obstructive pulmonary disease, with Solu-medrol 20 b.i.d. We may decrease gradually. Continue current therapy. Followup clinically. Patient's oral medications right now, she is getting Norvasc 10, Cozaar 50, hydralazine 50 t.i.d., and Catapres patch, and Toprol 100 plus aspirin, Lipitor, Imdur ER 60, and insulin coverage for underlying diabetes. We will continue to monitor her sugar and patient's appetite is not that great, so we will monitor her sugar by sliding scale and give more of insulin to the patient. Continue current therapy. Elroy Florian MD
[2018-04-18] MEDS: Enoxaparin 40 mg Syringe SC SCH (13:17)
[2018-04-18] MEDS: HYDROmorphone 1 mg/ml ISec IVP PRN ×2 (13:18→16:55)
--- NOTE | 2018-04-18 13:48 | PN ---
DATE: 04/18/2018 This is [facility]'s hospital visit on the medical floor. For Dr. Faye. SUBJECTIVE: The patient is a 61-year-old female, seen sitting up in bed, status post her emergency surgery recently as per Dr. Mckeon with the patient now recuperating well with ventral hernia repair, mesh revision of colostomy and occasional mucous fistula. She is now tolerating her diet with her pain controlled with analgesics with good effect. She reports being out of bed yesterday and is otherwise in no acute distress. OBJECTIVE PHYSICAL EXAMINATION: VITAL SIGNS: Temperature 98.6, pulse 74, respirations 18, blood pressure 164/67 with a pulse ox of 96%. HEENT: Unremarkable. NECK: Supple. HEART: Regular rate. LUNGS: Clear. ABDOMEN: Obese, soft with minimal generalized tenderness with dressings dry and intact. Viable colostomy. EXTREMITIES: Chronic +1 edema. NEUROLOGIC: Awake and alert. Abdomen, again obese with findings as above. LABORATORY DATA: The patient's labs were done. White blood cell count of 13.1, hemoglobin 8.6, hematocrit 28.5, platelet count of 184,000 with a chem metabolic panel showing a BUN of 51 with a creatinine of 1.7, nonfasting glucose of 265. PTT of 91 as she still is on IV heparin as the patient has suffered a non-ST elevated segment RI prior to her procedure for acute abdomen. The patient's labs were done. ASSESSMENT: The assessment for this patient is postoperative hernia repair with revision of colostomy, [id number] myocardial infarction, pulmonary hypertension, chronic obstructive pulmonary disease, hypertension, anemia of chronic disease, morbid obesity, chronic renal failure, history of rectal carcinoma, history of deep venous thrombosis, pulmonary embolism. PLAN: The plan for this patient after conservation with Dr. Faye is to continue present medical regimen. We will monitor clinically with consideration for transfusion. As indicated, we will type and cross and hold blood for the morning as indicated with change from IV heparin as per Dr. Guerrero, Cardiology as the patient is status post myocardial infarction. This is a complex patient with comprehensive medically necessary and appropriate visit carried out in excess of 40 minutes with the patient's questions answered to her satisfaction. Zuhair Herrera MD [facility] # [id number]
--- NOTE | 2018-04-18 14:08 | PN ---
DATE: 04/18/2018 REASON FOR CONSULTATION AND FOLLOWUP: Cardiac evaluation, preop and postop followup, acute abdomen, non-ST segment myocardial infarction, now the patient successfully extubated, started tolerating p.o., and is in 3R. Denies any chest pain, shortness of breath, or any palpitation. This note is in addition to dictated by a nurse practitioner. The patient's blood pressure is still not very well controlled, today it is 173/63. History of morbid obesity. History of coronary artery disease. History of perioperative non-STEMI, status post acute abdomen, status post ventral hernia repair, lysis of adhesions. RECOMMENDATION: Continue amlodipine. Continue aspirin. Continue Lipitor. Continue clonidine patch. Increase Imdur. Increase hydralazine to 100 mg p.o. t.i.d. If still blood pressure not controlled, we will add losartan, increase to 100 mg BUN and creatinine as tolerated. We will follow with you. We will discontinue heparin and change to DVT prophylaxis. Started on heparin on 04/12/2018, is almost a week and the patient is asymptomatic. We will follow with you. She is for DVT prophylaxis. Increase nutritional support as tolerated. Monitor blood pressure. Thank you Dr. Florian for providing us the opportunity in taking care of the patient, Pedro Guevara. This note in addition to dictated by nurse practitioner, Tiffanie Osborne. Pamela Guerrero MD
--- NOTE | 2018-04-18 15:11 | CP.PCM.PN ---
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 HTN better controlled on clonidine patch. norvasc 10 mg/day.metoprolol, hydralazine and imdur. added lasix 40/day and losartan 50 mg/day Monitor Input/Output, daily weights and renal function with basic metabolic panel pulmonary and surgery following defer management of anemia to heme/onc. due to hx of malignancy, will defer use of ESAs. PRBC as needed supplement lytes as needed check UA and urine cul Adrenal adenoma work up with plasma renin/aldosterone, plasma metanephrine NEGATIVE. outpt 1 mg dexa suppression test repeat renal sono in 6 months to assess her Rt renal cyst Dose meds/antibiotics for reduced GFR. Avoid fleets enema/magnesium based laxatives. Avoid nephrotoxins/NSAIDs/ iodinated contrast (unless needed emergently) Glycemic control Further work up/management as per primary team Thanks for allowing me to participate in care of your patient. Will follow patient with you. Please call if any Qs. had d/w team Dr Dae Dawn Office: [phone] Chief Complaint; abdomen pain Reason for consult: Acute Kidney Injury, CKD 3 HPI: Pt is a 62 F with hx of diabetes Mellitus (15 years), hypertension (years), CKD 3 with baseline cr 1.2-1.3 with AKIs, morbid obesity, CAD s/p stent, COPD/SUMMER on CPAP, rectal ca s/p colostomy presented with complaints of abdomen pain with nausea/vomiting. renal consult for CKD and SHELBI management. pt has no urine complaints. found to have partial SBO Denies OTC/herbal meds or NSAIDs No recent iodinated contrast exposure. No obvious episodes of low BP. ROS: feels better. tolerating liquid diet c/o burning urination Physical Examination: General Appearance: comfortable,morbidly obese. better appearing Vitals reviewed and noted as below Head; Atraumatic, normocephalic ENT: on BiPAP EYES: Pupils are equal, round and reactive to light accommodation. Eye muscles and extraocular movement intact. Sclera is anicteric. Neck; supple no lymphadenopathy, no thyromegaly or bruit Lungs: Normal respiratory rate/effort. Breath sounds bilateral equal, diminished at bases Heart: normal rate. s1s2 normal. No rub or gallop. Extremities: 2+ edema. No varicose veins Neurological: Patient is sedated Skin: Warm and dry. Normal turgor. No rash. Palpitation: Normal elasticity for age Abdomen: Abdomen is s/p ex lap Psych: deferred MSK: no joint tenderness or swelling. Digits and nails normal, no deformity : kidney or bladder not palpable Labs/imaging reviewed. Past medical history, past surgical history, family history, social history, allergy reviewed and noted as below Family hx: no hx of CKD. Rest non-contributory PET CT 04/2017: neg CT abdomen: left adrenal adenoma 1.9 cm Rt kidney 2.6 cm hyperdense cyst UA 100 protein, neg for blood renin and roma low, metanehrine WNL PTH 133 Vit D 27 ANCA neg, K/L ratio WNL Objective - Vital Signs/Intake and Output Vital Signs (last 24 hours): Temp Pulse Resp BP Pulse Ox 98.6 F 74 18 164/67 H 96 04/18/18 10:00 04/18/18 12:36 04/18/18 10:00 04/18/18 12:36 04/18/18 10:00 Intake and Output: 04/18/18 04/18/18 06:59 18:59 Intake Total 1050.0 Output Total 520 Balance 530.0 - Medications Medications: Current Medications Amlodipine Besylate (Norvasc) 10 mg PO DAILY [facility] Last Admin: 04/18/18 08:45 Dose: 10 mg Arformoterol Tartrate (Brovana) 15 mcg IH [id number] [facility] Last Admin: 04/18/18 07:50 Dose: 15 mcg Aspirin (Ecotrin) 81 mg PO DAILY [facility] Last Admin: 04/18/18 09:03 Dose: 81 mg Atorvastatin Calcium (Lipitor) 10 mg PO DIN [facility] Last Admin: 04/17/18 16:49 Dose: 10 mg Budesonide (Pulmicort Respules) 0.5 mg IH [id number] [facility] Last Admin: 04/18/18 07:50 Dose: 0.5 mg Clonidine HCl (Catapres-Tts3 0.3 Mg/24 Hr) 1 patch TD Q7D@1000 [facility] Last Admin: 04/18/18 12:36 Dose: 1 patch Docusate Sodium (Colace) 100 mg PO TID [facility] Last Admin: 04/18/18 13:19 Dose: 100 mg Enoxaparin Sodium (Lovenox) 40 mg SC DAILY [facility]; Protocol Last Admin: 04/18/18 13:17 Dose: 40 mg Furosemide (Lasix) 40 mg PO DAILY [facility] Last Admin: 04/18/18 09:03 Dose: 40 mg Hydralazine HCl (Apresoline) 10 mg IVP Q6 PRN PRN Reason: for sbp>160 Last Admin: 04/17/18 16:09 Dose: 10 mg Hydralazine HCl (Apresoline) 100 mg PO BID [facility] Last Admin: 04/18/18 08:45 Dose: 100 mg Hydromorphone HCl (Dilaudid) 0.5 mg IVP Q2H PRN PRN Reason: Pain, Mild (1-3) Last Admin: 04/18/18 09:05 Dose: 0.5 mg Hydromorphone HCl (Dilaudid) 0.5 mg IVP Q4H PRN PRN Reason: Pain, severe (8-10) Last Admin: 04/18/18 13:18 Dose: 0.5 mg Metronidazole (Flagyl) 500 mg in 100 mls @ 100 mls/hr IVPB Q8 [facility]; Protocol Last Admin: 04/18/18 13:18 Dose: 100 mls/hr Insulin Detemir (Levemir) 10 unit SC HS [facility] Insulin Human Regular (Humulin R High) 0 units SC ACHS [facility]; Protocol Last Admin: 04/18/18 11:45 Dose: 4 u Isosorbide Mononitrate (Imdur Er) 60 mg PO DAILY [facility] Last Admin: 04/18/18 09:02 Dose: 60 mg Levalbuterol HCl (Xopenex) 1.25 mg IH [id number] PRN PRN Reason: Shortness of Breath Last Admin: 04/16/18 13:42 Dose: 1.25 mg Losartan Potassium (Cozaar) 50 mg PO DAILY [facility] Last Admin: 04/18/18 08:45 Dose: 50 mg Methylprednisolone (Solu-Medrol) 20 mg IVP Q12 [facility] Last Admin: 04/18/18 09:04 Dose: 20 mg Metoprolol Succinate (Toprol Xl) 100 mg PO BRK [facility] Last Admin: 04/18/18 08:47 Dose: 100 mg Ondansetron HCl (Zofran Inj) 4 mg IVP Q6H PRN PRN Reason: Nausea/Vomiting Last Admin: 04/11/18 12:10 Dose: 4 mg Pantoprazole Sodium (Protonix Ec Tab) 40 mg PO ACB [facility] Last Admin: 04/18/18 08:46 Dose: 40 mg - Labs Labs: 04/18/18 04:15 04/18/18 04:15 PT 19.0 SECONDS (9.4-12.5) H 04/14/18 05:30 INR 1.64 04/14/18 05:30 APTT 91.0 Seconds (25.1-36.5) H 04/18/18 04:15
--- NOTE | 2018-04-18 15:57 | PN ---
DATE: 04/18/2018 PULMONARY PROGRESS NOTE REFERRING PHYSICAN: Elroy Florian MD. SUBJECTIVE: The patient is lying in the bed, head at 45 degrees, on supplemental oxygen, moved out of Intensive Care Unit to remote tele. No cough, no sputum production, is short of breath on minimal exertions, has abdominal discomfort. No stool in colostomy. Trace leg swelling. PHYSICAL EXAMINATION: VITAL SIGNS: Temp is 98, heart rate 74, respiratory rate is 20, blood pressure 166/64, pulse ox 96% on nasal cannula. HEENT: Moist mucous membrane. Crowded airway. Mallampati score is 4. NECK: Supple. No JVD. LUNGS: Have a fair airflow with rhonchi. HEART: S1, S2. ABDOMEN: Obese, has a colostomy bag, which is empty. Midline surgical scar is healing well. EXTREMITIES: Has trace edema. NEUROLOGIC: Awake and alert. Follows simple command. MEDICATIONS: She is on hydralazine 10 mg every 6 hours p.r.n., also hydralazine 100 m g twice a day, Brovana inhaled twice a day, clonidine patch every 7 days, Colace 100 mg 3 times a day, Cozaar 50 mg daily, Dilaudid 0.5 mg every 12 hours p.r.n., also Dilaudid 0.5 mg every 4 hours p.r.n., Ecotrin 81 mg daily, Flagyl 500 mg every 8 hours, Imdur ER 60 mg daily, Lasix 40 mg daily, Levemir 10 units subcu at bedtime, Lipitor 10 mg daily, Lovenox 40 mg daily, Norvasc 10 mg daily, Protonix 40 mg daily, Pulmicort inhaled twice a day, Solu-Medrol 20 mg every 12 hours, Xopenex 1.25 mg every 6 hours p.r.n., Zofran p.r.n. basis. LABORATORY DATA: Shows hemoglobin 8.6, hematocrit 28.5, WBC 13.1, platelet count is 184. PTT is 91. Sodium 145, potassium 4.3, chloride 114, bicarbonate 24, BUN 51, creatinine 1.7, glucose 273, calcium is 8.4, phosphorus 3.6, magnesium 1.3, AST 19, ALT 22, alk phos is 107, albumin is 2.6. Microbiology, urine has some yeast, blood cultures have been negative. IMPRESSION: Status post laparotomy for incarcerated hernia with small bowel obstruction. PLAN: She had a relocation of colostomy, history of rectal carcinoma requiring surgery, pulmonary embolism, deep venous thrombosis, history of hypoventilation syndrome, sleep apnea syndrome. We will continue bronchodilator, keep head at 45 degrees, supplement oxygen, pain management. Gastric prophylaxis. Deep venous thrombosis prophylaxis. Surgical and GI followup. Out of bed to chair if possible and bedside therapy. Follow up labs in the morning. Thank you and we will follow with you. Pamela Ayala MD
[2018-04-18 17:15] LABS: URINE BILIRUBIN NEGATIVE (NEGATIVE); URINE BLOOD TRACE-LYSED (NEGATIVE); URINE GLUCOSE (UA) NEGATIVE (NEGATIVE); URINE LEUKOCYTE ESTERASE NEGATIVE Leu/uL (NEGATIVE); URINE PROTEIN 30 mg/dL (<30 mg/dL); URINE UROBILINOGEN 0.2 E.U./dL (<1 E.U./dL)
[2018-04-18 17:21] LABS: URINE APPEARANCE SL CLOUDY (CLEAR); URINE COLOR YELLOW (YELLOW)
[2018-04-18 17:26] LABS: URINE BACTERIA TRACE (NEG); URINE RBC NEGATIVE /hpf (0-2); URINE WBC 0 - 2 /hpf (0-6)
[2018-04-18] MEDS ORDERED: Insulin Detemir 100 units/ml Vial (Levemir) SC SCH (22:00)
[2018-04-19] MEDS: HYDROmorphone 0.5 mg/0.5 ml ISec IVP PRN ×4 (02:03→14:44)
[2018-04-19 06:19] LABS: BASO # 0.04 K/mm3 (0.0-2.0); BASO % 0.3 % (0.0-3.0); EOS # 0.1 (0.0-0.7); EOS % 0.6 % (1.5-5.0); GRAN # 10.69 (1.4-6.5); GRAN % 83.5 % (50.0-68.0); HEMOGLOBIN 9.2 g/dL (12.0-16.0); LYMPH # 1.2 (1.2-3.4); LYMPH % 9.3 % (22.0-35.0); MEAN CELL VOLUME 88.3 fl (80.0-105.0); MEAN CORPUSCULAR HEMOGLOBIN 26.3 pg (25.0-35.0); MEAN CORPUSCULAR HGB CONC 29.8 g/dl (31.0-37.0); MEAN PLATELET VOLUME 11.6 fl (7.0-11.0); MONO # 0.8 (0.1-0.6); MONO % 6.3 % (1.0-6.0); RBC 3.5 10^6/uL (3.5-6.1); WHITE BLOOD COUNT 12.8 10^3/uL (4.5-11.0)
[2018-04-19] MEDS: Budesonide 0.5 mg/2 ml Inhal Susp UD IH SCH ×2 (07:18→20:09)
[2018-04-19] MEDS: Arformoterol 15 mcg/2 ml Inh Sol IH SCH ×2 (07:18→20:09)
[2018-04-19 07:37] LABS: ALB/GLOB RATIO 0.8 (1.1-1.8); ALBUMIN 2.6 g/dL (3.0-4.8); CALCIUM 8.2 mg/dL (8.4-10.5)
--- NOTE | 2018-04-19 08:19 | PN ---
DATE: 04/18/2018 The patient was seen earlier today in 371. No fevers, no chills. PHYSICAL EXAMINATION VITAL SIGNS: Temperature of 98, blood pressure is 160/70, respiratory rate of 18, heart rate of 80. HEENT: Unremarkable. NECK: Supple. LUNGS: Decreased breath sounds. HEART: Normal S1 and S2. ABDOMEN: Soft, nontender. LABORATORY DATA: Reveals a white count of 13,000, hemoglobin of 8, platelets of 184,000. BUN of 51, creatinine of 1.7. Urine culture has yeast. Blood cultures have no growth. Review of orders reveals the patient is off of antibiotics. ASSESSMENT AND PLAN: This is a 62-year-old female seen earlier today in 371, bed 1, with a small bowel obstruction in a patient with a ventral hernia, status post ventral incarcerated hernia repair, adenolysis, and revision of colostomy. Postop day #3, with acute coronary symptom with non-ST elevation AR, chronic obstructive lung disease, day #7 of antibiotics, currently now off of antibiotics. The patient did receive cefepime and Flagyl. Off of antibiotics, afebrile. The patient is on Flagyl. We will discontinue the Flagyl. The patient does have a white count of 13,100. However, the patient is on Solu-Medrol. We will discontinue the Flagyl. Still needs antibiotic use on at this time. Lawrence Cheek MD
[2018-04-19] MEDS: Metoprolol Succinate 100 mg XL Tab PO SCH (09:41)
[2018-04-19] MEDS: MethylPREDNISolone 40 mg Vial IVP SCH (09:42)
[2018-04-19] MEDS: Enoxaparin 40 mg Syringe SC SCH (09:44)
[2018-04-19] MEDS: Furosemide 40 mg/5 mL Oral Soln UD PO SCH ×2 (09:46→09:47)
[2018-04-19] MEDS: Insulin Reg-HIGH-Coverage SC SCH ×3 (09:47→17:51)
[2018-04-19] MEDS ORDERED: Olopatadine 0.1% Opht Sol OU SCH (10:00)
--- NOTE | 2018-04-19 10:01 | CP.PCM.PN ---
Subjective - Date & Time of Evaluation Date of Evaluation: 04/19/18 Time of Evaluation: 10:01 - Subjective Subjective: Hematology/Oncology Progress Note Patient seen and assessed at bedside in ICU. No acute events noted overnight. Patient reports that she is worried about going back to [place] as she still has some mild abdominal pain and has had no BM since Sunday. However, patient had BM immediately after assessment. She denies any other complaints at this time including fevers, chills, headache, chest pain, SOB, cough, N/V/D/C, changes in urine output, skin changes or any numbness/tingling of any extremity. Objective - Vital Signs/Intake and Output Vital Signs (last 24 hours): Temp Pulse Resp BP Pulse Ox 98.1 F 79 20 183/70 H 97 04/19/18 06:00 04/19/18 06:02 04/19/18 06:00 04/19/18 06:02 04/19/18 06:00 Intake and Output: 04/19/18 04/19/18 06:59 18:59 Intake Total 898 Output Total 1545 Balance -647 - Medications Medications: Current Medications Amlodipine Besylate (Norvasc) 10 mg PO DAILY [facility] Last Admin: 04/18/18 08:45 Dose: 10 mg Arformoterol Tartrate (Brovana) 15 mcg IH [id number] [facility] Last Admin: 04/19/18 07:18 Dose: 15 mcg Aspirin (Ecotrin) 81 mg PO DAILY [facility] Last Admin: 04/18/18 09:03 Dose: 81 mg Atorvastatin Calcium (Lipitor) 10 mg PO DIN [facility] Last Admin: 04/18/18 16:56 Dose: 10 mg Budesonide (Pulmicort Respules) 0.5 mg IH [id number] [facility] Last Admin: 04/19/18 07:18 Dose: 0.5 mg Clonidine HCl (Catapres-Tts3 0.3 Mg/24 Hr) 1 patch TD Q7D@1000 [facility] Last Admin: 04/18/18 12:36 Dose: 1 patch Docusate Sodium (Colace) 100 mg PO TID [facility] Last Admin: 04/18/18 17:00 Dose: 100 mg Enoxaparin Sodium (Lovenox) 40 mg SC DAILY [facility]; Protocol Last Admin: 04/18/18 13:17 Dose: 40 mg Furosemide (Lasix) 40 mg PO DAILY [facility] Last Admin: 04/18/18 09:03 Dose: 40 mg Hydralazine HCl (Apresoline) 10 mg IVP Q6 PRN PRN Reason: for sbp>160 Last Admin: 04/19/18 06:02 Dose: 10 mg Hydralazine HCl (Apresoline) 100 mg PO BID [facility] Last Admin: 04/18/18 17:00 Dose: 100 mg Hydromorphone HCl (Dilaudid) 0.5 mg IVP Q2H PRN PRN Reason: Pain, Mild (1-3) Last Admin: 04/19/18 05:12 Dose: 0.5 mg Hydromorphone HCl (Dilaudid) 0.5 mg IVP Q4H PRN PRN Reason: Pain, severe (8-10) Last Admin: 04/18/18 16:55 Dose: 0.5 mg Insulin Detemir (Levemir) 20 unit SC HS [facility] Insulin Human Regular (Humulin R High) 0 units SC [facility]; Protocol Last Admin: 04/18/18 22:02 Dose: Not Given Isosorbide Mononitrate (Imdur Er) 60 mg PO DAILY [facility] Last Admin: 04/18/18 09:02 Dose: 60 mg Levalbuterol HCl (Xopenex) 1.25 mg IH [id number] PRN PRN Reason: Shortness of Breath Last Admin: 04/16/18 13:42 Dose: 1.25 mg Losartan Potassium (Cozaar) 50 mg PO DAILY [facility] Last Admin: 04/18/18 08:45 Dose: 50 mg Methylprednisolone (Solu-Medrol) 20 mg IVP Q12 [facility] Last Admin: 04/18/18 22:04 Dose: 20 mg Metoprolol Succinate (Toprol Xl) 100 mg PO BRK [facility] Last Admin: 04/18/18 08:47 Dose: 100 mg Olopatadine HCl (Patanol 0.1% Opht Soln) 0 ml OU DAILY [facility] Ondansetron HCl (Zofran Inj) 4 mg IVP Q6H PRN PRN Reason: Nausea/Vomiting Last Admin: 04/11/18 12:10 Dose: 4 mg Pantoprazole Sodium (Protonix Ec Tab) 40 mg PO ACB [facility] Last Admin: 04/18/18 08:46 Dose: 40 mg - Labs Labs: 04/19/18 06:00 04/19/18 06:00 PT 19.0 SECONDS (9.4-12.5) H 04/14/18 05:30 INR 1.64 04/14/18 05:30 APTT 91.0 Seconds (25.1-36.5) H 04/18/18 04:15 - Additional Findings Additional findings: - Constitutional Appears: Non-toxic, No Acute Distress - Head Exam Head Exam: ATRAUMATIC, NORMOCEPHALIC - Eye Exam Eye Exam: EOMI, Normal appearance - ENT Exam ENT Exam: Mucous Membranes Moist - Neck Exam Neck exam: Positive for: Full Rom, Normal Inspection. Negative for: Lymphadenopathy, Meningismus, Tenderness, Thyromegaly - Respiratory Exam Respiratory Exam: Clear to Auscultation Bilateral, NORMAL BREATHING PATTERN. absent: Accessory Muscle Use, Decreased Breath Sounds, Rales, Rhonchi, Wheezes, Respiratory Distress - Cardiovascular Exam Cardiovascular Exam: REGULAR RHYTHM, RRR, +S1, +S2. absent: Bradycardia, Tachycardia - GI/Abdominal Exam GI & Abdominal Exam: Distended, Hernia, Normal Bowel Sounds Additional comments: Surgical wound dressings clean dry and intact - Extremities Exam Extremities exam: Negative for: calf tenderness - Neurological Exam Neurological exam: Alert, Oriented x3 - Psychiatric Exam Psychiatric exam: Normal Affect, Normal Mood - Skin Skin Exam: Dry, Intact, Warm Assessment and Plan - Assessment and Plan (Free Text) Assessment: 62 year old female with a past medical history significant for Rectal Adenocarcinoma s/p [employer] and loop colostomy, CAD s/p GLORIA, CHF, DM2, HTN, CKD, and DVT/PE on Eliquis who presents from [place] after being sent by PMD for abdominal pain and anemia. Hematology/Oncology was consulted for her history of rectal adenocarcinoma and anemia. Plan: -H/H (04/19): 9.2/30.9 (Baseline: 9.5-10.0) -Iron Studies reviewed -Vitamin B12/Folate/Lead: within normal limits -Anemia likely secondary to LANEY and CKD -S/P transfusion of two units of pRBC's -S/P one dose of IV Venofer and SC Anaresp; Will give additional doses of both Aranesp SC and IV Venofer 200mg -Continue to monitor with daily CBC's -Continue management as per Surgery, GI, Cardiology and Primary teams -Further recommendations as per Dr. Faye Patient seen and case discussed with attending, Dr. Faye. Jeff Perez PGY2
--- NOTE | 2018-04-19 10:34 | CP.PCM.PCO ---
Additional Comments - Additional Comments Additional Comments: General Surgery Dr. Mckeon Pt tolerating regular diet. good ostomy output. Martin drain 20cc x24hrs. A/P: 62 y/o F POD#5 s/p ex-lap, RAJESH, ventral hernia repair w/ mesh, revision of colosotmy w/ mucous fistula - d/c martin drain - transition to PO steroids and wean - cont pain management - cont Abx per ID - monitor ostomy output - ADAT - pt cleared for discharge from surgical standpoint. - no further surgical intervention at this time. Pt discussed w/ Mike Wilkinson DO PGY3
[2018-04-19] MEDS: Pantoprazole 40 mg EC Tab PO SCH (11:29)
--- NOTE | 2018-04-19 11:39 | PN ---
DATE: 04/18/2018 SUBJECTIVE: Patient is a 62-year-old female status post incarcerated hernia surgery. She is in medical floor now. She seems doing better. No shortness of breath. Pain is controlled. She does complain of burning urinations. There is no other complaint. PHYSICAL EXAMINATION: VITAL SIGNS: Her temperature is 98, heart rate is 72, blood pressure 169/66, respirations 20. GENERAL: Patient tolerated to using BiPAP. She is doing better. HEAD AND NECK: Normal. No JVD. No thyromegaly. CHEST: Clear bilaterally. CARDIAC: First sound and second sound normal. ABDOMEN: Soft, obese. There is tenderness at the site of surgery. EXTREMITIES: No edema. NEUROLOGICAL: Normal. LABORATORY STUDIES: On 04/18/2018, white count 15.1, hemoglobin 8.6, hematocrit 28.5, platelets 184,000. Chemistry: Sodium 145, potassium 4.3, chloride 114. bicarb 24, BUN 61, creatinine 1.7 and blood sugar is 273. Liver function test is normal. PTT is 91. IMPRESSION AND PLAN: 1. Status post incarcerated hernia surgery. She is doing well, tolerated oral and doing better. 2. Hypertension, still uncontrolled. We will continue current therapy. Will follow up with . Continue current blood pressure medications. She is on metoprolol; Toprol-XL 100, maybe we will increase it to 150. Continue hydralazine 100 mg twice a day and continue Norvasc 10 mg once a day. Patient was on Cozaar 50 mg p.o. daily. We will continue current therapy and monitor blood pressure. 3. Patient complained of red eyes and itchy eyes. We will give Patanol as needed for symptomatic treatment and itchy eyes, and we will follow up. 4. Diabetes, insulin-dependent. Blood sugar running in 200s. We will start patient on Levemir plus insulin coverage, monitor blood sugar and patient starts eating more now. We may need to increase her insulin coverage. Continue current therapy. Patient needs physical therapy, ambulation, she is out of bed to chair and we will continue follow up with other otm consultant. Elroy Florian MD
--- NOTE | 2018-04-19 13:24 | CP.PCM.PN ---
Subjective - Date & Time of Evaluation Date of Evaluation: 04/19/18 Time of Evaluation: 13:23 - Subjective Subjective: Nephrology Consultation Note: Assessment: stable SBO s/p ex lap Acute Kidney Injury (N17.9) likely pre-renal state HTN urgency, hyperkalemia left adrenal adenoma, Rt renal hyperdense cyst chronic hypercapnic respi failure Diabetic chronic Kidney Disease (E11.22) Hypertensive Chronic Kidney Disease (I12.9) Chronic Kidney Disease (N18.3) Stage 3 with 2.4 gm proteinuria (R80.9) likely due to DM/HTN/Obesity Anemia Vit D def morbid obesity, CAD s/p stent, COPD/SUMMER, rectal ca s/p colostomy Plan No acute need for renal replacement therapy at this time. HTN better controlled on clonidine patch. norvasc 10 mg/day.metoprolol, hydralazine and imdur. added lasix 40/day and losartan 50 mg/day. hydralazine increased to 100 TID Monitor Input/Output, daily weights and renal function with basic metabolic panel pulmonary and surgery following defer management of anemia to heme/onc. due to hx of malignancy, will defer use of ESAs. PRBC as needed supplement lytes as needed check UA (NEG) and urine cul Adrenal adenoma work up with plasma renin/aldosterone, plasma metanephrine NEGATIVE. outpt 1 mg dexa suppression test repeat renal sono in 6 months to assess her Rt renal cyst Dose meds/antibiotics for reduced GFR. Avoid fleets enema/magnesium based laxatives. Avoid nephrotoxins/NSAIDs/ iodinated contrast (unless needed emergently) Glycemic control Further work up/management as per primary team pt stable from renal perspective Thanks for allowing me to participate in care of your patient. Will follow patient with you. Please call if any Qs. had d/w team Dr Dae Dawn Office: [phone] Chief Complaint; abdomen pain Reason for consult: Acute Kidney Injury, CKD 3 HPI: Pt is a 62 F with hx of diabetes Mellitus (15 years), hypertension (years), CKD 3 with baseline cr 1.2-1.3 with AKIs, morbid obesity, CAD s/p stent, COPD/SUMMER on CPAP, rectal ca s/p colostomy presented with complaints of abdomen pain with nausea/vomiting. renal consult for CKD and SHELBI management. pt has no urine complaints. found to have partial SBO Denies OTC/herbal meds or NSAIDs No recent iodinated contrast exposure. No obvious episodes of low BP. ROS: feels better. tolerating liquid diet c/o burning urination upset about d/c plan to rehab Physical Examination: General Appearance: comfortable,morbidly obese. better appearing Vitals reviewed and noted as below Head; Atraumatic, normocephalic ENT: normal mucosa EYES: Pupils are equal, round and reactive to light accommodation. Eye muscles and extraocular movement intact. Sclera is anicteric. Neck; supple no lymphadenopathy, no thyromegaly or bruit Lungs: Normal respiratory rate/effort. Breath sounds bilateral equal, diminished at bases Heart: normal rate. s1s2 normal. No rub or gallop. Extremities: 2+ edema. No varicose veins Neurological: Patient is sedated Skin: Warm and dry. Normal turgor. No rash. Palpitation: Normal elasticity for age Abdomen: Abdomen is s/p ex lap soft Psych: upset MSK: no joint tenderness or swelling. Digits and nails normal, no deformity : kidney or bladder not palpable Labs/imaging reviewed. Past medical history, past surgical history, family history, social history, allergy reviewed and noted as below Family hx: no hx of CKD. Rest non-contributory PET CT 04/2017: neg CT abdomen: left adrenal adenoma 1.9 cm Rt kidney 2.6 cm hyperdense cyst UA 100 protein, neg for blood renin and roma low, metanehrine WNL PTH 133 Vit D 27 ANCA neg, K/L ratio WNL Objective - Vital Signs/Intake and Output Vital Signs (last 24 hours): Temp Pulse Resp BP Pulse Ox 98.1 F 78 20 170/70 H 97 04/19/18 06:00 04/19/18 10:00 04/19/18 06:00 04/19/18 11:28 04/19/18 06:00 Intake and Output: 04/19/18 04/19/18 06:59 18:59 Intake Total 898 Output Total 1545 Balance -647 - Medications Medications: Current Medications Amlodipine Besylate (Norvasc) 10 mg PO DAILY JR Last Admin: 04/19/18 11:28 Dose: 10 mg Arformoterol Tartrate (Brovana) 15 mcg IH [id number] [facility] Last Admin: 04/19/18 07:18 Dose: 15 mcg Aspirin (Ecotrin) 81 mg PO DAILY [facility] Last Admin: 04/19/18 11:28 Dose: 81 mg Atorvastatin Calcium (Lipitor) 10 mg PO DIN [facility] Last Admin: 04/18/18 16:56 Dose: 10 mg Budesonide (Pulmicort Respules) 0.5 mg IH [id number] [facility] Last Admin: 04/19/18 07:18 Dose: 0.5 mg Clonidine HCl (Catapres-Tts3 0.3 Mg/24 Hr) 1 patch TD Q7D@1000 [facility] Last Admin: 04/18/18 12:36 Dose: 1 patch Docusate Sodium (Colace) 100 mg PO TID [facility] Last Admin: 04/19/18 09:48 Dose: 100 mg Enoxaparin Sodium (Lovenox) 40 mg SC DAILY [facility]; Protocol Last Admin: 04/19/18 09:44 Dose: 40 mg Furosemide (Lasix) 40 mg PO DAILY [facility] Last Admin: 04/19/18 09:47 Dose: 40 mg Hydralazine HCl (Apresoline) 10 mg IVP Q6 PRN PRN Reason: for sbp>160 Last Admin: 04/19/18 09:44 Dose: 10 mg Hydralazine HCl (Apresoline) 100 mg PO TID [facility] Hydromorphone HCl (Dilaudid) 0.5 mg IVP Q2H PRN PRN Reason: Pain, Mild (1-3) Last Admin: 04/19/18 09:46 Dose: 0.5 mg Hydromorphone HCl (Dilaudid) 4 mg PO Q6H PRN PRN Reason: Pain, moderate (4-7) Last Admin: 04/19/18 11:43 Dose: 4 mg Insulin Detemir (Levemir) 20 unit SC [facility] Insulin Human Regular (Humulin R High) 0 units SC [facility]; Protocol Last Admin: 04/19/18 12:22 Dose: 4 u Isosorbide Mononitrate (Imdur Er) 60 mg PO DAILY [facility] Last Admin: 04/19/18 09:46 Dose: 60 mg Levalbuterol HCl (Xopenex) 1.25 mg IH [id number] PRN PRN Reason: Shortness of Breath Last Admin: 04/16/18 13:42 Dose: 1.25 mg Losartan Potassium (Cozaar) 50 mg PO DAILY [facility] Last Admin: 04/19/18 09:54 Dose: 50 mg Methylprednisolone (Solu-Medrol) 20 mg IVP Q12 JR Last Admin: 04/19/18 09:42 Dose: 20 mg Metoprolol Succinate (Toprol Xl) 100 mg PO BRK JR Last Admin: 04/19/18 09:41 Dose: 100 mg Olopatadine HCl (Patanol 0.1% Opht Soln) 0 ml OU DAILY [facility] Last Admin: 04/19/18 11:28 Dose: 1 drop Ondansetron HCl (Zofran Inj) 4 mg IVP Q6H PRN PRN Reason: Nausea/Vomiting Last Admin: 04/11/18 12:10 Dose: 4 mg Pantoprazole Sodium (Protonix Ec Tab) 40 mg PO ACB [facility] Last Admin: 04/19/18 11:29 Dose: 40 mg - Labs Labs: 04/19/18 06:00 04/19/18 06:00 PT 19.0 SECONDS (9.4-12.5) H 04/14/18 05:30 INR 1.64 04/14/18 05:30 APTT 91.0 Seconds (25.1-36.5) H 04/18/18 04:15
--- NOTE | 2018-04-19 15:35 | CP.PCM.PN ---
Subjective - Date & Time of Evaluation Date of Evaluation: 04/19/18 Time of Evaluation: 09:15 - Subjective Subjective: Still not eating well, no fevers, improved abdominal pain. No nausea or vomiting. Objective - Vital Signs/Intake and Output Vital Signs (last 24 hours): Temp Pulse Resp BP Pulse Ox 98.4 F 74 54 H 168/57 H 98 04/17/18 16:03 04/17/18 17:00 04/17/18 15:10 04/17/18 17:00 04/17/18 15:10 Intake and Output: 04/17/18 04/17/18 06:59 18:59 Intake Total 458 350 Output Total 520 Balance -62 350 - Medications Medications: Current Medications Amlodipine Besylate (Norvasc) 10 mg PO DAILY [facility] Last Admin: 04/17/18 09:03 Dose: 10 mg Arformoterol Tartrate (Brovana) 15 mcg IH [id number] [facility] Last Admin: 04/17/18 08:02 Dose: 15 mcg Aspirin (Ecotrin) 81 mg PO DAILY [facility] Last Admin: 04/17/18 14:01 Dose: 81 mg Atorvastatin Calcium (Lipitor) 10 mg PO DIN [facility] Last Admin: 04/17/18 16:49 Dose: 10 mg Budesonide (Pulmicort Respules) 0.5 mg IH [id number] [facility] Last Admin: 04/17/18 08:02 Dose: 0.5 mg Clonidine HCl (Catapres-Tts3 0.3 Mg/24 Hr) 1 patch TD Q7D@1000 [facility] Last Admin: 04/11/18 18:17 Dose: 1 patch Docusate Sodium (Colace) 100 mg PO TID [facility] Last Admin: 04/17/18 17:00 Dose: 100 mg Furosemide (Lasix) 40 mg PO DAILY [facility] Last Admin: 04/17/18 09:04 Dose: 40 mg Hydralazine HCl (Apresoline) 50 mg PO TID [facility] Last Admin: 04/17/18 17:00 Dose: 50 mg Hydralazine HCl (Apresoline) 10 mg IVP Q6 PRN PRN Reason: for sbp>160 Last Admin: 04/17/18 16:09 Dose: 10 mg Hydromorphone HCl (Dilaudid) 0.5 mg IVP Q2H PRN PRN Reason: Pain, Mild (1-3) Last Admin: 04/17/18 11:36 Dose: 0.5 mg Hydromorphone HCl (Dilaudid) 0.5 mg IVP Q4H PRN PRN Reason: Pain, severe (8-10) Last Admin: 04/17/18 17:05 Dose: 0.5 mg Heparin Sodium/Sodium Chloride (Heparin 32482 Units/250ml 1/2 Normal Saline) 25,000 units in 250 mls @ 16.346 mls/hr IV .[id number] [facility]; Protocol Last Admin: 04/17/18 13:55 Dose: 11 units/kg/hr, 14.984 mls/hr Cefepime HCl (Maxipime 2gm) 2 gm in 100 mls @ 25 mls/hr IVPB DAILY [facility]; Protocol Stop: 04/18/18 10:01 Last Admin: 04/17/18 09:02 Dose: 25 mls/hr Metronidazole (Flagyl) 500 mg in 100 mls @ 100 mls/hr IVPB Q8 [facility]; Protocol Last Admin: 04/17/18 13:59 Dose: 100 mls/hr Insulin Human Regular (Humulin R High) 0 units SC ACHS [facility]; Protocol Last Admin: 04/17/18 16:49 Dose: 10 u Isosorbide Mononitrate (Imdur Er) 60 mg PO DAILY [facility] Last Admin: 04/17/18 10:07 Dose: 30 mg Levalbuterol HCl (Xopenex) 1.25 mg IH [id number] PRN PRN Reason: Shortness of Breath Last Admin: 04/16/18 13:42 Dose: 1.25 mg Losartan Potassium (Cozaar) 50 mg PO DAILY [facility] Last Admin: 04/17/18 16:10 Dose: 50 mg Methylprednisolone (Solu-Medrol) 20 mg IVP Q12 [facility] Last Admin: 04/17/18 08:59 Dose: 20 mg Metoprolol Succinate (Toprol Xl) 100 mg PO BRK [facility] Last Admin: 04/17/18 10:06 Dose: 100 mg Ondansetron HCl (Zofran Inj) 4 mg IVP Q6H PRN PRN Reason: Nausea/Vomiting Last Admin: 04/11/18 12:10 Dose: 4 mg Pantoprazole Sodium (Protonix Ec Tab) 40 mg PO ACB JR - Labs Labs: 11/14/18 06:20 04/17/18 06:20 PT 19.0 SECONDS (9.4-12.5) H 04/14/18 05:30 INR 1.64 04/14/18 05:30 APTT 46.6 Seconds (25.1-36.5) H 04/17/18 11:00 - Constitutional Appears: Chronically Ill - Head Exam Head Exam: NORMAL INSPECTION - Respiratory Exam Respiratory Exam: Decreased Breath Sounds - Cardiovascular Exam Cardiovascular Exam: +S1, +S2 - GI/Abdominal Exam GI & Abdominal Exam: Soft. absent: Tenderness Assessment and Plan - Assessment and Plan (Free Text) Plan: Assessment consider small bowel obstruction in this patient with ventral wall hernia, S/P ventral incarcerated hernia repair, adhesiolysis and revision of colostomy POD #5 acute coronary syndrome with NSTEMI COPD history of VRE UTI history of severe sepsis secondary to left medial thigh abscess, growing Proteus, S/P incision and drainage DM HTN CAD Unresectable rectal cancer S/P chemotherapy and radiation therapy S/P colostomy S/P Port-a-cath placement morbid obesity with BMI 50 obstructive sleep apnea history of pulmonary embolism S/P IVC filter placement Plan completed 7 days of antibiotics, no fevers; leukocytosis may be from Solumedrol continue to monitor diet yeast in the urine is probably colonization
[2018-04-19 17:16] VITALS: PULSE 76; RESP 19; TEMP 98.8; O2SAT 95
[2018-04-19 17:53] VITALS: BP 164/64
--- NOTE | 2018-04-19 20:41 | PN ---
DATE: 04/19/2018 PULMONARY PROGRESS NOTE REFERRING PHYSICIAN: Elroy Florian MD SUBJECTIVE: She is lying in the bed, head at 45 degrees, on nasal cannula oxygen. Feels better, still gets short of breath with exertion. No chest pain. Does have mild abdominal pain. Small stool in colostomy bag. Trace leg swelling. OBJECTIVE: GENERAL: In no acute distress. VITAL SIGNS: Temperature is 98, heart rate is 76, respiratory rate is 18, blood pressure is 164/64, and pulse ox 95% on nasal cannula. HEENT: Moist mucous membrane. Crowded airway. NECK: Supple. No JVD. Short thick neck. LUNGS: Has a fair airflow with rhonchi. HEART: S1 and S2. ABDOMEN: Soft. Incision site looks okay. Colostomy bag working okay. EXTREMITIES: edema. NEUROLOGIC: Awake, alert, and follows simple command. MEDICATIONS: She is on hydralazine 10 mg every 6 hours p.r.n. and hydralazine 100 mg three times a day, Brovana inhaled twice a day, clonidine 0.3 mg every 7 days, Colace 100 mg three times a day, Cozaar 50 mg daily, Dilaudid 0.5 mg every 2 hours p.r.n. and also 4 mg every 6 hours p.r.n. for severe pain, Ecotrin 81 mg daily, Imdur ER 60 mg daily, Lasix 40 mg daily, Levemir 20 units subcutaneously at bedtime, Lipitor 10 mg daily, Lovenox 40 mg daily, Norvasc 10 mg daily, Protonix 40 mg daily, Pulmicort inhaled twice a day, Solu-Medrol 20 mg every 12 hours, Toprol-XL 100 mg in the morning, Xopenex inhaled every 6 hours, and Zofran p.r.n. basis. LABORATORY DATA: Shows hemoglobin 9.2, hematocrit 30.9, WBC 12.8, and platelet is 230,000. Sodium 142, potassium 4.1, chloride 112, bicarbonate 26, BUN 52, creatinine 1.6, glucose 237, and calcium 8.2. AST 26, ALT 17, and alk phos is 110. Albumin is 2.6. Microbiology; blood culture, there is no growth. IMPRESSION AND PLAN: Status post laparotomy for incarcerated hernia with small bowel obstruction, morbid obesity, hypoventilation syndrome, history of pulmonary embolism, deep venous thrombosis, activities of daily living dysfunction. We will continue bronchodilator. Keep head at 45 degrees. Continue supplemental oxygen. Gastric prophylaxis. Deep venous thrombosis prophylaxis. Fall precaution and will benefit from therapy. Thank you and we will follow with you. Pamela Ayala MD
--- NOTE | 2018-04-19 20:54 | PN ---
DATE: 04/19/2018 LOCATION: The patient in room 371, bed 1. REASON FOR CONSULTATION AND FOLLOWUP: Coronary artery disease, non-ST elevation myocardial infarction, hypertension, morbid obesity. The patient is status post acute abdomen. BRIEF HISTORY: The patient is admitted with acute abdomen, had a ventral hernia surgery, had perioperative non-ST elevation myocardial infarction. The patient was extubated, now she is extubated, now she is on free air. The patient is lying flat in bed without chest pain, shortness of breath, or palpitations. PHYSICAL EXAMINATION: VITAL SIGNS: Blood pressure 170/70, yesterday blood pressure was 183/71, respirations 18, and pulse 78. The patient is afebrile. HEENT: Head is normocephalic. Eyes: Pupils are normal. Conjunctivae slightly pale. NECK: JVP. No carotid bruits. CHEST: Normal. LUNGS: Clear. CARDIOVASCULAR: S1 and S2. ABDOMEN: As mentioned before surgery. EXTREMITIES: No clubbing, no cyanosis. LABORATORY DATA: WBC 12.8, hemoglobin 9.2, hematocrit 30.9, platelets 230. Sodium 143, potassium 4.1, BUN 52, creatinine 1.6, sugar 204. AST and ALT are normal. Total protein 6.1, albumin 2.6. DIAGNOSES: Status post acute abdomen, status post ventral hernia surgery, coronary artery disease with stent placement, hypertension, chronic back pain, anemia, history of colorectal cancer resection with colostomy, history of deep vein thrombosis, pulmonary embolism, renal dysfunction, lysis of adhesions, colostomy was also done, perioperative complications, non-ST elevation myocardial infarction, intubated. PLAN: The patient on hydralazine 10 mg IV p.r.n. every 6 hours for high blood pressure, hydralazine was increased yesterday to 100 mg p.o. t.i.d. The patient is on clonidine 0.3 mg patch two weekly, aspirin 81 mg daily, insulin as ordered, isosorbide mononitrate 60 mg daily, furosemide 40 mg daily, atorvastatin 10 mg daily, Lovenox 40 mg subcutaneously daily, amlodipine 10 mg daily, losartan 50 mg daily, Protonix 40 mg daily, methylprednisolone 20 mg IV every 12 hours, metoprolol succinate 100 mg daily, Xopenex nebulizer therapy. Yesterday, hydralazine dose was increased. We will monitor blood pressures. If it continues to stay high, we will adjust the medications further. In the meantime, we will continue present therapy. We will follow. Pamela Hernandez MD
[2018-04-19] MEDS ORDERED: Insulin Detemir 100 units/ml Vial (Levemir) SC SCH (22:00)
--- NOTE | 2018-04-21 23:14 | DS ---
HISTORY OF PRESENT ILLNESS: A 62-year-old female admitted with small bowel obstruction. CT shows bowel obstruction. The patient was managed medically; did not work, NG tube suction was done and surgical consult Dr. Mckeon and another surgical consult second opinion . The patient's condition got worse and repeat CT shows strangulated abnormal hernia. She went to surgery and the patient hemodynamically was unstable. Her blood pressure was 180s and 190s. Renal consult Dr. Dae Dawn, seen the patient. The patient also seen by Pulmonary Dr. Ayala. BiPAP machine, was on inhaled bronchodilators. She did well till surgery, which would be high risk surgery because of pulmonary hypertension. She went to surgery and she did very well and back to ICU. During the ICU, NG tube is out. The patient tolerated diet. Blood pressure monitored and was discharged to [facility] for rehabilitation. PHYSICAL EXAMINATION: VITAL SIGNS: On day of discharge, her temperature 98, heart rate 76, blood pressure 164/64, and respirations 18. HEAD AND NECK: Normal. No JVD. No thyromegaly. CHEST: Clear bilaterally. CARDIAC: First sound and second sound normal. ABDOMEN: Tender, obese, colostomy site is clean. EXTREMITIES: Mild edema. NEUROLOGICAL: Normal. LABORATORY DATA: White count 12.6, hemoglobin 9.2, hematocrit 30.9, and platelets 230,000. Chemistry: Sodium 143, potassium 4.1, chloride 112, bicarbonate 26, BUN 52, creatinine 1.6, blood sugar is 237, calcium 8.2. Liver function test is normal. DISCHARGE DIAGNOSES: 1. Acute small bowel obstruction. 2. Hypertension, uncontrolled. 3. Hypercholesterolemia. 4. Insulin-dependent diabetes. 5. Obstructive sleep apnea. 6. Chronic obstructive pulmonary disease. 7. Acute renal failure. PLAN: Discharge the patient to rehab. We will continue with her medications. The patient was seen by multiple specialists. MEDICATIONS ON DISCHARGE: She is on Zaroxolyn 2.5 mg p.o. every day, clonidine 0.3 patch once a week, Norvasc 10 mg, Zocor 40, Lyrica 100 three times a day, Protonix 20 once a day, the patient has Imdur 60 mg once a day, Lasix 40 in the morning, the patient has iron pills p.o., vitamin B, Pulmicort, aspirin baby, Eliquis 2.5 twice a day, Brovana, hydralazine 100 t.i.d., clonidine patch 0.3 for 24 hours once every 7 days, the patient has Patanol eyedrops, metoprolol 100 once a day, Cozaar 50 once a day, Xopenex nebulizer treatment, insulin coverage plus Levemir 20 subcu daily. The patient is also getting Dilaudid 4 mg p.o. every 4 hours p.r.n., Colace 100 twice a day. Continue Brovana. Continue current therapy. We will follow up clinically. Follow up in rehab. Elroy Florian MD
== END 2018-04-19 23:00 | DRG 335 ==
LOC: ED 21:08 → ERH 04-09 01:07 → 5RNO 04-09 11:33 → 2RNO 04-10 13:52 → OBSVTOIN 04-10 14:03 → ICU 04-12 15:08 → 3RSO 04-17 18:44
PROVIDERS: ADMIT Internal Medicine; ATTEND Internal Medicine
PROC: 5A09457 Assistance with Respiratory Ventilation, 24-96 Consecutive Hours, Continuous Positive Airway Pressure (ICD-10-PCS; 2018-04-10)
PROC: 30233N1 Transfusion of Nonautologous Red Blood Cells into Peripheral Vein, Percutaneous Approach (ICD-10-PCS; 2018-04-13)
PROC: 5A1935Z Respiratory Ventilation, Less than 24 Consecutive Hours (ICD-10-PCS; 2018-04-14)
PROC: 0WUF0JZ Supplement Abdominal Wall with Synthetic Substitute, Open Approach (ICD-10-PCS; principal; 2018-04-14 08:44)
PROC: 0DNW0ZZ Release Peritoneum, Open Approach (ICD-10-PCS; 2018-04-14 08:44)
PROC: 0WQF0ZZ Repair Abdominal Wall, Open Approach (ICD-10-PCS; 2018-04-14 08:44)
DX: K43.6 Other and unspecified ventral hernia with obstruction, without gangrene (principal); I21.4 Non-ST elevation (NSTEMI) myocardial infarction; J95.821 Acute postprocedural respiratory failure; I13.0 Hypertensive heart and chronic kidney disease with heart failure and stage 1 through stage 4 chronic kidney disease, or unspecified chronic kidney disease; N17.9 Acute kidney failure, unspecified; Z68.43 Body mass index [BMI] 50.0-59.9, adult; K92.2 Gastrointestinal hemorrhage, unspecified; I50.32 Chronic diastolic (congestive) heart failure; E87.4 Mixed disorder of acid-base balance; E66.2 Morbid (severe) obesity with alveolar hypoventilation; I16.1 Hypertensive emergency; C19 Malignant neoplasm of rectosigmoid junction; I42.9 Cardiomyopathy, unspecified; J96.12 Chronic respiratory failure with hypercapnia; K43.3 Parastomal hernia with obstruction, without gangrene; N18.3 Chronic kidney disease, stage 3 (moderate); I25.10 Atherosclerotic heart disease of native coronary artery without angina pectoris; J44.9 Chronic obstructive pulmonary disease, unspecified; E11.22 Type 2 diabetes mellitus with diabetic chronic kidney disease; D63.1 Anemia in chronic kidney disease; I27.20 Pulmonary hypertension, unspecified; D50.0 Iron deficiency anemia secondary to blood loss (chronic); D35.02 Benign neoplasm of left adrenal gland; E78.00 Pure hypercholesterolemia, unspecified; E87.5 Hyperkalemia; E55.9 Vitamin D deficiency, unspecified; I50.9 Heart failure, unspecified; G47.33 Obstructive sleep apnea (adult) (pediatric); G89.18 Other acute postprocedural pain; Z93.3 Colostomy status; Z86.711 Personal history of pulmonary embolism; Z92.3 Personal history of irradiation; Z92.21 Personal history of antineoplastic chemotherapy; Z86.718 Personal history of other venous thrombosis and embolism; Z91.19 Patient's noncompliance with other medical treatment and regimen; Z79.4 Long term (current) use of insulin; Z74.01 Bed confinement status; Z95.5 Presence of coronary angioplasty implant and graft

== ENCOUNTER 2018-04-25 15:55 | Inpatient (IN) | payer MEDICARE, OTHER ==
--- NOTE | 2018-04-25 16:34 | ED PDOC ---
Arrival/HPI - General Chief Complaint: Weakness/Neurological Deficit Time Seen by Provider: 04/25/18 16:04 Historian: Patient - Critical Care Narrative Critical Care (Text): 04/25/18 16:31 62 yo female h/o Small Bowel Obstruction (recent Surgery, Dr. Mckeon), HTN, HLD, DM, Sleep Apnea, COPD, CHF, presents to the ED from the [facility] due to increased lethargy. Patient provides limited history due to mental status. She is alert away and oriented x 3 but drowsy. She denies any chest pain, shortness of breathe or abdominal pain. Abdominal pain she does have if you press on her abdomen. Elevated temp reported from the shelter. No vomiting or diarrhea. PMD: Dr. Florian Surgery: Dr. Mckeon Resp: Dr. Ayala Renal: Dr. Dawn Past Medical History - Provider Review Nursing Documentation Reviewed: Yes - Infectious Disease Hx of Infectious Diseases: None - Tetanus Immunization Tetanus Immunization: Unknown - Cardiac Hx Cardiac Disorders: Yes (CAD with stent placement,) Hx Congestive Heart Failure: Yes Hx Hypertension: Yes - Pulmonary Hx Chronic Obstructive Pulmonary Disease (COPD): Yes Hx Respiratory Tract Infection: Yes Hx Sleep Apnea: Yes - Neurological Hx Neurological Disorder: Yes Hx Dizziness: Yes - HEENT Hx Macular Degeneration: No - Renal Hx Renal Failure: Yes - Endocrine/Metabolic Hx Diabetes Mellitus Type 2: Yes - Hematological/Oncological Hx Blood Disorders: Yes Hx Anemia: Yes - Integumentary Hx Dermatological Disorder: No - Musculoskeletal/Rheumatological Hx Falls: No - Gastrointestinal Hx Gastrointestinal Disorders: Yes (RECTAL CA WITH COLOSTOMY,GI BLEED) Hx Colostomy: Yes Hx Gastroesophageal Reflux: Yes - Genitourinary/Gynecological Hx Genitourinary Disorders: Yes (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,UTI) - Psychiatric Hx Psychophysiologic Disorder: Yes Hx Anxiety: Yes Hx Substance Use: No - Surgical History Hx Appendectomy: Yes Hx Coronary Stent: Yes Hx Vascular Access Device: Yes Other/Comment: colostomy - Anesthesia Hx Anesthesia: Yes Hx Anesthesia Reactions: No Hx Malignant Hyperthermia: No - Suicidal Assessment Feels Threatened In Home Enviroment: No Family/Social History - Physician Review Nursing Documentation Reviewed: Yes Family/Social History: No Known Family HX Smoking Status: Never Smoked Hx Alcohol Use: No Hx Substance Use: No Hx Substance Use Treatment: No Allergies/Home Meds Allergies/Adverse Reactions: Allergies No Known Allergies Allergy (Verified 04/08/18 21:16) Home Medications: Home Meds Medication Instructions Recorded Confirmed Apixaban [Eliquis] 1 tab PO DAILY 02/10/18 04/08/18 Aspirin [Adult Low Dose Aspirin EC] 1 tab PO DAILY 02/10/18 04/08/18 Furosemide [Lasix] 1 tab PO HS 02/10/18 04/08/18 Isosorbide Mononitrate [Imdur] 1 tab PO DAILY 02/10/18 04/08/18 Metoprolol Succinate [Kapspargo 1 tab PO DAILY 02/10/18 04/08/18 Sprinkle] Oxybutynin Chloride [Oxybutynin 1 tab PO DAILY 02/10/18 04/08/18 Chloride ER] Pantoprazole [Protonix EC Tab] 1 tab PO DAILY 02/10/18 04/08/18 Pregabalin [Lyrica] 1 tab PO DAILY 02/10/18 04/08/18 Primidone [Mysoline] 1 tab PO DAILY 02/10/18 04/08/18 Simvastatin [Zocor] 1 tab PO HS 02/10/18 04/08/18 amLODIPine [Norvasc] 1 tab PO DAILY 02/10/18 04/08/18 metOLazone [Zaroxolyn] 1 tab PO DAILY 02/10/18 04/08/18 Review of Systems - Review of Systems Constitutional: Fatigue ENT: Normal Respiratory: Normal Cardiovascular: Normal Gastrointestinal: Abdominal Pain Genitourinary Female: Normal Musculoskeletal: Normal Skin: Normal Endocrine: Normal Psychiatric: Normal Physical Exam Vital Signs Reviewed: Yes Vital Signs Temp Pulse Resp BP Pulse Ox 04/25/18 15:56 99.1 F 72 18 122/77 98 Temperature: Afebrile Blood Pressure: Normal Pulse: Regular Respiratory Rate: Normal Appearance: Positive for: Non-Toxic, Comfortable, Ill-Appearing Pain Distress: None Mental Status: Positive for: Alert and Oriented X 3 - Systems Exam Head: Present: Atraumatic, Normocephalic Pupils: Present: PERRL Extroacular Muscles: Present: EOMI Conjunctiva: Present: Normal Mouth: Present: Moist Mucous Membranes Neck: Present: Normal Range of Motion Respiratory/Chest: Present: Clear to Auscultation, Good Air Exchange. No: Respiratory Distress, Accessory Muscle Use Cardiovascular: Present: Regular Rate and Rhythm, Normal S1, S2. No: Murmurs Abdomen: Present: Other (colostomy bag with liquid stool). No: Tenderness, Distention, Peritoneal Signs Back: Present: Normal Inspection Upper Extremity: Present: Normal Inspection. No: Cyanosis, Edema Lower Extremity: Present: Normal Inspection. No: Edema Neurological: Present: GCS=15, CN II-XII Intact, Speech Normal Skin: Present: Warm, Dry, Normal Color. No: Rashes Psychiatric: Present: Alert, Oriented x 3, Lethargic Medical Decision Making ED Course and Treatment: 04/25/18 16:37 62 yo female with increased lethargy r/o Sepsis, r/o Electrolyte Imbalance -- Labs -- Blood cultures -- UA, Urine cultures -- CXR, EKG -- VBG -- Revaluate and disposition Alistair Andrade, Affiliate Marketing Coordinator came to evaluate patient. She will discuss the case with Dr. Mckeon. 04/25/18 16:44 Dr. Andrade discussed the case with Dr. Mckeon. They don't need a CT at this time and will order one for her on admission. 04/25/18 17:[address] Florian who called. He states patient has been more drowsy lately so he stopped the Lyrica. She did not get it last night. She complained of double vision. Currently denies visual changes. CT ordered and pending. He states also that she has not had good PO intake at the shelter so we should lightly hydrate her. Acute on chronic renal failure noted. Lungs are mild congestion. CXR shows congestion similar to previous XRay, with concern for RLL PNA. Will treat with Zosyn IV due to CXR and history of fever at the ID as well. Dr. Florian agreed also to lightly hydrate her and consult Dr. Dawn for Renal, Ab for Neuro and Dr. Ayala for her COPD. 04/25/18 18:07 EKG: NSR at [address] elevatiosn, nl intervals 04/25/18 18:36 Corrected calcium 8.7. - RAD Interpretation Radiology Orders: 04/25/18 16:14 CHEST PORTABLE [RAD] Stat Disposition/Present on Arrival - Present on Arrival Any Indicators Present on Arrival: Yes History of DVT/PE: Yes History of Uncontrolled Diabetes: No Urinary Catheter: No History of Decub. Ulcer: Yes History Surgical Site Infection Following: None - Disposition Have Diagnosis and Disposition been Completed?: Yes Diagnosis: Altered mental status, Dehydration, Pneumonia Disposition: HOSPITALIZED Disposition Time: 17:06 Patient Plan: Admission Patient Problems: Current Active Problems Problem Status Onset Pneumonia Acute Altered mental status Acute Dehydration Acute Condition: GUARDED
[2018-04-25 16:44] LABS: VENOUS BLOOD GAS BASE EXCESS -5.1 mmol/L (0.0-2.0); VENOUS BLOOD GAS PO2 44 mm/Hg (30-55); VENOUS BLOOD PH 7.21 (7.32-7.43)
[2018-04-25 16:47] LABS: BASO # 0.01 K/mm3 (0.0-2.0); BASO % 0.1 % (0.0-3.0); EOS # 0.2 (0.0-0.7); EOS % 1.5 % (1.5-5.0); GRAN # 8.42 (1.4-6.5); GRAN % 77.6 % (50.0-68.0); HEMOGLOBIN 8.3 g/dL (12.0-16.0); LYMPH # 1.3 (1.2-3.4); MEAN CELL VOLUME 89.1 fl (80.0-105.0); MEAN CORPUSCULAR HEMOGLOBIN 26.5 pg (25.0-35.0); MEAN CORPUSCULAR HGB CONC 29.7 g/dl (31.0-37.0); MEAN PLATELET VOLUME 11.4 fl (7.0-11.0); MONO % 8.8 % (1.0-6.0); RBC 3.13 10^6/uL (3.5-6.1); RED CELL DISTRIBUTION WIDTH 18.9 % (11.5-14.5); WHITE BLOOD COUNT 10.9 10^3/uL (4.5-11.0)
[2018-04-25 16:54] LABS: ALB/GLOB RATIO 0.7 (1.1-1.8); ALBUMIN 2.4 g/dL (3.0-4.8); CALCIUM 7.4 mg/dL (8.4-10.5)
[2018-04-25] MEDS ORDERED: Piperacillin/Tazobact 2.25gm 2.25 GM/100 ML BAG IVPB STA (16:59)
[2018-04-25 17:00] LABS: INR 1.21; PROTHROMBIN TIME 13.8 SECONDS (9.4-12.5)
[2018-04-25] MEDS ORDERED: Sodium Chloride 0.9% 500 ML IV SCH (17:00)
[2018-04-25 17:29] LABS: PARTIAL THROMBOPLASTIN TIME 118.1 Seconds (25.1-36.5)
[2018-04-25 17:46] LABS: PH,URINE 5.5 (4.7-8.0); URINE BILIRUBIN NEGATIVE (NEGATIVE); URINE BLOOD NEGATIVE (NEGATIVE); URINE GLUCOSE (UA) NEGATIVE (NEGATIVE); URINE LEUKOCYTE ESTERASE NEGATIVE Leu/uL (NEGATIVE); URINE PROTEIN 100 mg/dL (<30 mg/dL); URINE UROBILINOGEN 0.2 E.U./dL (<1 E.U./dL)
[2018-04-25 17:47] LABS: URINE APPEARANCE CLEAR (CLEAR); URINE COLOR YELLOW (YELLOW)
[2018-04-25 17:55] LABS: TROPONIN I 0.08 ng/mL
[2018-04-25 18:11] VITALS: BMI 52.4
[2018-04-25 18:21] LABS: URINE WBC 0 - 2 /hpf (0-6)
[2018-04-25 18:22] LABS: URINE AMORPHOUS SEDIMENT SMALL; URINE BACTERIA NEG (NEG)
[2018-04-25] MEDS ORDERED: Magnesium Sulfate 2 gm/50 ml 2 GM/50 ML BAG IVPB ONE (20:31)
[2018-04-25 20:38] LABS: ARTERIAL BLOOD GAS HEMOGLOBIN 8.7 g/dL (11.7-17.4); ARTERIAL BLOOD GAS O2 CAPACITY 11.9 mL/dl (16-24); ARTERIAL BLOOD GAS O2 CONTENT 11.7 ML/dl (15-23); ARTERIAL BLOOD GAS O2 SAT 98.3 % (95-98); ARTERIAL BLOOD GAS PCO2 49 mm/Hg (35-45); ARTERIAL BLOOD GAS PH 7.28 (7.35-7.45); ARTERIAL BLOOD GAS TCO2 24.5 mmol.L (22-28)
--- NOTE | 2018-04-25 20:56 | CP.PCM.PN ---
<Rhonda Olvera - Last Filed: 04/25/18 20:56> Subjective - Date & Time of Evaluation Date of Evaluation: 04/25/18 Time of Evaluation: 19:48 - Subjective Subjective: PGY-3 resident house physician Note: Paged by nurse, 62 y/o morbidly obese, recent laparoscopic surgery due to incarcerated hernia admitted with AMS, now O2 sat 80-90 while sleeping, SBP 150s, HR 70s, Upon examining patient is A&OX3, but appears lethargic, admits to SOB, and feeling fatigued. + Mild wheezes on right lower lobe upon auscultating. Plan: Will obtain ABG, and ammonia level Will place patient on BIPAP based on ABG, and monitor respiratory status and vitals. Objective - Vital Signs/Intake and Output Vital Signs (last 24 hours): Temp Pulse Resp BP Pulse Ox 97.7 F 73 15 150/61 92 L 04/25/18 18:45 04/25/18 18:45 04/25/18 18:45 04/25/18 18:45 04/25/18 18:45 - Medications Medications: Current Medications Sodium Chloride (Sodium Chloride 0.9%) 500 mls @ 75 mls/hr IV .[id number] JR Last Admin: 04/25/18 17:30 Dose: 75 mls/hr Magnesium Sulfate (Magnesium Sulfate 2 Gm/50 Ml Water) 2 gm in 50 mls @ 50 mls/hr IVPB ONCE ONE Stop: 04/25/18 21:30 - Labs Labs: 04/25/18 16:33 04/25/18 16:33 PT 13.8 SECONDS (9.4-12.5) H 04/25/18 16:33 INR 1.21 04/25/18 16:33 APTT 118.1 Seconds (25.1-36.5) H* 04/25/18 16:33 <Ivania Marshall - Last Filed: 04/26/18 02:49> Objective - Vital Signs/Intake and Output Vital Signs (last 24 hours): Temp Pulse Resp BP Pulse Ox 97.7 F 70 15 177/59 H 92 L 04/25/18 18:45 04/26/18 02:44 04/25/18 18:45 04/26/18 02:44 04/25/18 18:45 - Medications Medications: Current Medications Apixaban (Eliquis) 2.5 mg PO BID JR; Protocol Insulin Human Regular (Humulin R Low) 0 units SC ACHS JR; Protocol Last Admin: 04/25/18 22:45 Dose: Not Given - Labs Labs: 04/25/18 16:33 04/25/18 16:33 PT 13.8 SECONDS (9.4-12.5) H 04/25/18 16:33 INR 1.21 04/25/18 16:33 APTT 118.1 Seconds (25.1-36.5) H* 04/25/18 16:33 Attending/Attestation - Attestation I have personally seen and examined this patient.: Yes I have fully participated in the care of the patient.: Yes I have reviewed all pertinent clinical information, including history, physical exam and plan: Yes Notes (Text): 04/26/18 02:48 Medical record was reviewed. Patient was seen at bedside. Agree with documentation by resident physician.
[2018-04-25] MEDS: Insulin Reg-LOW-Coverage SC SCH (22:45)
[2018-04-25] MEDS ORDERED: Metoprolol 1 mg/ml Inj IVP ONE (23:25)
[2018-04-26 00:06] LABS: ARTERIAL BLOOD GAS HCO3 22.6 mmol/L (21-28); ARTERIAL BLOOD GAS O2 CAPACITY 13.6 mL/dl (16-24); ARTERIAL BLOOD GAS O2 CONTENT 13.2 ML/dl (15-23); ARTERIAL BLOOD GAS O2 SAT 96.9 % (95-98); ARTERIAL BLOOD GAS PCO2 46 mm/Hg (35-45)
[2018-04-26] MEDS ORDERED: Metoprolol 1 mg/ml Inj IVP ONE (02:45)
[2018-04-26] MEDS ORDERED: Metoprolol Succinate 100 mg XL Tab PO SCH ×2 (08:15→15:07)
--- NOTE | 2018-04-26 08:40 | CT ---
Date of service: 04/25/2018 PROCEDURE: CT HEAD WITHOUT CONTRAST. HISTORY: altered mental status COMPARISON: None available. TECHNIQUE: Axial computed tomography images were obtained through the head/brain without intravenous contrast. Radiation dose: Total exam DLP = 1011.3 mGy-cm. This CT exam was performed using one or more of the following dose reduction techniques: Automated exposure control, adjustment of the mA and/or kV according to patient size, and/or use of iterative reconstruction technique. FINDINGS: HEMORRHAGE: No intracranial hemorrhage. BRAIN: No mass effect or edema. No atrophy or chronic microvascular ischemic changes. VENTRICLES: Unremarkable. No hydrocephalus. CALVARIUM: Unremarkable. PARANASAL SINUSES: Unremarkable as visualized. No significant inflammatory changes. MASTOID AIR CELLS: Unremarkable as visualized. No inflammatory changes. OTHER FINDINGS: None. IMPRESSION: Normal CT of the Head.
--- NOTE | 2018-04-26 09:01 | RAD ---
HISTORY: Sepsis Patient COMPARISON: Chest x-ray performed 04/15/18 TECHNIQUE: Chest, one view. FINDINGS: Examination limited by habitus and patient obliquity. Right-sided MediPort extends expected location of the cavoatrial junction. LUNGS: Moderate pulmonary venous congestion. PLEURA: No significant pleural effusion identified. No definite pneumothorax . CARDIOVASCULAR: Cardiomegaly. Atherosclerotic calcification present. OSSEOUS STRUCTURES: Degenerative changes. VISUALIZED UPPER ABDOMEN: Unremarkable. OTHER FINDINGS: None. IMPRESSION: Cardiomegaly. Moderate pulmonary venous congestion. Right-sided MediPort.
--- NOTE | 2018-04-26 09:23 | CARD ---
APPROVED REPORT Date of service: 04/25/2018 EKG Measurement Heart [id number] P25 [id number] <Conclusion> RSR Baseline artifact present Probably no change
[2018-04-26] MEDS: Ergocalciferol 50,000 Intl Units Cap PO SCH (10:23)
[2018-04-26] MEDS: MEROPENEM 500 MG in NS 500 MG/50 ML BAG IVPB SCH ×2 (10:24→21:48)
[2018-04-26] MEDS: Insulin Reg-LOW-Coverage SC SCH ×4 (10:25→22:28)
[2018-04-26 11:13] LABS: HEMOGLOBIN 9.6 g/dL (12.0-16.0); MEAN CELL VOLUME 87.1 fl (80.0-105.0); MEAN CORPUSCULAR HEMOGLOBIN 28.2 pg (25.0-35.0); MEAN CORPUSCULAR HGB CONC 32.3 g/dl (31.0-37.0); MEAN PLATELET VOLUME 10.6 fl (7.0-11.0); RBC 3.41 10^6/uL (3.5-6.1); RED CELL DISTRIBUTION WIDTH 18.5 % (11.5-14.5); WHITE BLOOD COUNT 11.8 10^3/uL (4.5-11.0)
[2018-04-26] MEDS: Sodium Chloride 0.9% 1,000 ML IV SCH (11:36)
[2018-04-26 11:44] LABS: CALCIUM 7.8 mg/dL (8.4-10.5)
--- NOTE | 2018-04-26 13:05 | CP.PCM.CON ---
History of Present Illness - History of Present Illness History of Present Illness: Nephrology Consultation Note: Assessment: critical altered mental status SBO s/p ex lap Acute Kidney Injury (N17.9) likely pre-renal state left adrenal adenoma, Rt renal hyperdense cyst chronic hypercapnic respi failure Diabetic chronic Kidney Disease (E11.22) Hypertensive Chronic Kidney Disease (I12.9) Chronic Kidney Disease (N18.3) Stage 3 with 2.4 gm proteinuria (R80.9) likely due to DM/HTN/Obesity Anemia Vit D def morbid obesity, CAD s/p stent, COPD/SUMMER, rectal ca s/p colostomy Plan No acute need for renal replacement therapy at this time. HTN control on clonidine patch. norvasc 10 mg/day.metoprolol, hydralazine and imdur. hold ARB due to SHELBI Monitor Input/Output, daily weights and renal function with basic metabolic panel pulmonary and surgery following defer management of anemia to heme/onc. due to hx of malignancy, will defer use of ESAs. PRBC as needed supplement lytes as needed gentle IVF while pt with limited oral intake Adrenal adenoma work up with plasma renin/aldosterone, plasma metanephrine NEGATIVE. outpt 1 mg dexa suppression test repeat renal sono in 6 months to assess her Rt renal cyst Dose meds/antibiotics for reduced GFR. Avoid fleets enema/magnesium based laxatives. Avoid nephrotoxins/NSAIDs/ iodinated contrast (unless needed emergently) Glycemic control Further work up/management as per primary team pt stable from renal perspective Thanks for allowing me to participate in care of your patient. Will follow patient with you. Please call if any Qs. had d/w team Dr Dae Dawn Office: [phone] Chief Complaint;AMS Reason for consult: Acute Kidney Injury, CKD 3 HPI: Pt is a 62 F with hx of diabetes Mellitus (15 years), hypertension (years), CKD 3 with baseline cr 1.2-1.3 with AKIs, morbid obesity, CAD s/p stent, COPD/SUMMER on CPAP, rectal ca s/p colostomy recently admitted for SBP s/p ex-lap, seen for SHELBI and HTN urgency came back with complaints of AMS and fever. renal consult for CKD and SHELBI management. pt has no urine complaints. Denies OTC/herbal meds or NSAIDs No recent iodinated contrast exposure. No obvious episodes of low BP. ROS:pt unable to provide much hx and appears confused Physical Examination: General Appearance: comfortable,morbidly obese. ill appearing confused Vitals reviewed and noted as below Head; Atraumatic, normocephalic ENT: dry mucosa EYES: Pupils are equal, round and reactive to light accommodation. Eye muscles and extraocular movement intact. Sclera is anicteric. Neck; supple no lymphadenopathy, no thyromegaly or bruit Lungs: Normal respiratory rate/effort. Breath sounds bilateral equal, diminished at bases Heart: normal rate. s1s2 normal. No rub or gallop. Extremities: 2+ edema. No varicose veins Neurological: Patient is sleepy and confused Skin: Warm and dry. Normal turgor. No rash. Palpitation: Normal elasticity for age Abdomen: Abdomen is s/p ex lap soft Psych: unable MSK: no joint tenderness or swelling. Digits and nails normal, no deformity : kidney or bladder not palpable Labs/imaging reviewed. Past medical history, past surgical history, family history, social history, allergy reviewed and noted as below Family hx: no hx of CKD. Rest non-contributory PET CT 04/2017: neg CT abdomen: left adrenal adenoma 1.9 cm Rt kidney 2.6 cm hyperdense cyst UA 100 protein, neg for blood renin and roma low, metanehrine WNL PTH 133 Vit D 27 ANCA neg, K/L ratio WNL Past Patient History - Infectious Disease Hx of Infectious Diseases: None - Tetanus Immunizations Tetanus Immunization: Unknown - Past Social History Smoking Status: Never Smoked - CARDIAC Hx Cardiac Disorders: Yes (CAD with stent placement,) Hx Congestive Heart Failure: Yes Hx Hypertension: Yes - PULMONARY Hx Chronic Obstructive Pulmonary Disease (COPD): Yes Hx Respiratory Tract Infection: Yes Hx Sleep Apnea: Yes - NEUROLOGICAL Hx Neurological Disorder: Yes Hx Dizziness: Yes - HEENT Hx Macular Degeneration: No - RENAL Hx Renal Failure: Yes - ENDOCRINE/METABOLIC Hx Diabetes Mellitus Type 2: Yes - HEMATOLOGICAL/ONCOLOGICAL Hx Blood Disorders: Yes Hx Anemia: Yes - INTEGUMENTARY Hx Dermatological Problems: No - MUSCULOSKELETAL/RHEUMATOLOGICAL Hx Falls: No - GASTROINTESTINAL Hx Gastrointestinal Disorders: Yes (RECTAL CA WITH COLOSTOMY,GI BLEED) Hx Colostomy: Yes Hx Gastroesophageal Reflux: Yes - GENITOURINARY/GYNECOLOGICAL Hx Genitourinary Disorders: Yes (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,UTI) - PSYCHIATRIC Hx Psychophysiologic Disorder: Yes Hx Anxiety: Yes Hx Substance Use: No - SURGICAL HISTORY Hx Appendectomy: Yes Hx Coronary Stent: Yes Hx Vascular Access Device: Yes Other/Comment: colostomy - ANESTHESIA Hx Anesthesia: Yes Hx Anesthesia Reactions: No Hx Malignant Hyperthermia: No Meds Allergies/Adverse Reactions: Allergies Allergy/AdvReac Type Severity Reaction Status Date / Time No Known Allergies Allergy Verified 04/08/18 21:16 - Medications Medications: Current Medications Amlodipine Besylate (Norvasc) 10 mg PO DAILY [facility] Last Admin: 04/26/18 10:20 Dose: 10 mg Apixaban (Eliquis) 2.5 mg PO BID [facility]; Protocol Last Admin: 04/26/18 10:23 Dose: 2.5 mg Arformoterol Tartrate (Brovana) 15 mcg IH [id number] [facility] Aspirin (Ecotrin) 81 mg PO DAILY [facility] Last Admin: 04/26/18 10:23 Dose: 81 mg Atorvastatin Calcium (Lipitor) 20 mg PO HS [facility] Clonidine HCl (Catapres-Tts3 0.3 Mg/24 Hr) 1 patch TD Q7D@1000 [facility] Last Admin: 04/26/18 10:21 Dose: 1 patch Clonidine HCl (Catapres) 0.1 mg PO Q6H PRN PRN Reason: Systolic Blood Pressure >170 Docusate Sodium (Colace) 100 mg PO TID [facility] Last Admin: 04/26/18 10:24 Dose: 100 mg Ergocalciferol (Drisdol 50,000 Intl Units Cap) 1 cap PO Q7D [facility] Last Admin: 04/26/18 10:23 Dose: 1 cap Ferrous Gluconate (Fergon) 324 mg PO TID [facility] Last Admin: 04/26/18 10:23 Dose: 324 mg Hydralazine HCl (Apresoline) 100 mg PO TID [facility] Last Admin: 04/26/18 10:23 Dose: 100 mg Hydromorphone HCl (Dilaudid) 4 mg PO Q6H PRN PRN Reason: Pain, moderate (4-7) Last Admin: 04/26/18 10:20 Dose: 4 mg Meropenem/Sodium Chloride (Merrem Iv 500 Mg/Ns 50 Ml) 500 mg in 50 mls @ 100 mls/hr IVPB Q12 [facility]; Protocol Stop: 05/05/18 10:01 Last Admin: 04/26/18 10:24 Dose: 100 mls/hr Sodium Chloride (Sodium Chloride 0.9%) 1,000 mls @ 50 mls/hr IV .Q20H [facility] Last Admin: 04/26/18 11:36 Dose: 50 mls/hr Insulin Detemir (Levemir) 20 unit SC HS [facility] Insulin Human Regular (Humulin R Low) 0 units SC ACHS [facility]; Protocol Last Admin: 04/26/18 10:25 Dose: Not Given Levalbuterol HCl (Xopenex) 1.25 mg IH [id number] PRN PRN Reason: Shortness of Breath Linezolid (Zyvox) 600 mg PO BID [facility]; Protocol Stop: 05/05/18 10:01 Last Admin: 04/26/18 10:23 Dose: 600 mg Metoprolol Succinate (Toprol Xl) 100 mg PO BRK [facility] Last Admin: 04/26/18 10:21 Dose: 100 mg Pantoprazole Sodium (Protonix Ec Tab) 20 mg PO ACB [facility] Vitamin B Complex/Vit C/Folic Acid (Nephro-[place]) 1 tab PO 0800 [facility] Results - Vital Signs Recent Vital Signs: Last Vital Signs Temp 98.1 F 04/26/18 12:00 Pulse 86 04/26/18 12:00 Resp 19 04/26/18 12:00 BP 189/69 H 04/26/18 12:00 Pulse Ox 98 04/26/18 12:00 - Labs Result Diagrams: 04/26/18 11:00 04/26/18 11:00 Labs: Laboratory Results - last 24 hr 04/25/18 04/25/18 04/25/18 16:33 16:33 16:33 WBC 10.9 RBC 3.13 L Hgb 8.3 L Hct 27.9 L MCV 89.1 MCH 26.5 MCHC 29.7 L RDW 18.9 H Plt Count 479 H MPV 11.4 H Gran % 77.6 H Lymph % (Auto) 12.0 L [place] % (Auto) 8.8 H Eos % (Auto) 1.5 Baso % (Auto) 0.1 Gran # 8.42 H Lymph # (Auto) 1.3 [place] # (Auto) 1.0 H Eos # (Auto) 0.2 Baso # (Auto) 0.01 PT 13.8 H INR 1.21 APTT 118.1 H* pCO2 pO2 44 HCO3 ABG pH ABG Total CO2 ABG O2 Saturation ABG O2 Content ABG Base Excess ABG Hemoglobin ABG Carboxyhemoglobin POC ABG HHb (Measured) ABG Methemoglobin ABG O2 Capacity VBG pH 7.21 L VBG pCO2 59.0 VBG HCO3 23.6 VBG Total CO2 25.4 VBG O2 Sat (Calc) 86.3 H VBG Base Excess -5.1 L VBG Potassium 4.6 Hgb O2 Saturation Sodium 133.0 Chloride 102.0 Glucose 188 H Lactate 0.6 L FiO2 21.0 Potassium Carbon Dioxide Anion Gap BUN Creatinine Est GFR ( Amer) Est GFR (Non-Af Amer) POC Glucose (mg/dL) Random Glucose Calcium Phosphorus Magnesium Total Bilirubin AST ALT Alkaline Phosphatase Ammonia Lactate Dehydrogenase Total Creatine Kinase Troponin I NT-Pro-B Natriuret Pep Total Protein Albumin Globulin Albumin/Globulin Ratio Procalcitonin Venous Blood Potassium 4.6 Urine Color Urine Appearance Urine pH Ur Specific [place] Urine Protein Urine Glucose (UA) Urine Ketones Urine Blood Urine Nitrate Urine Bilirubin Urine Urobilinogen Ur Leukocyte Esterase Urine RBC Urine WBC Ur Epithelial Cells Amorphous Sediment Urine Bacteria Urine Other 04/25/18 04/25/18 04/25/18 16:33 16:33 17:25 WBC RBC Hgb Hct MCV MCH MCHC RDW Plt Count MPV Gran % Lymph % (Auto) [place] % (Auto) Eos % (Auto) Baso % (Auto) Gran # Lymph # (Auto) [place] # (Auto) Eos # (Auto) Baso # (Auto) PT INR APTT pCO2 pO2 HCO3 ABG pH ABG Total CO2 ABG O2 Saturation ABG O2 Content ABG Base Excess ABG Hemoglobin ABG Carboxyhemoglobin POC ABG HHb (Measured) ABG Methemoglobin ABG O2 Capacity VBG pH VBG pCO2 VBG HCO3 VBG Total CO2 VBG O2 Sat (Calc) VBG Base Excess VBG Potassium Hgb O2 Saturation Sodium 134 Chloride 103 Glucose Lactate FiO2 Potassium 4.7 Carbon Dioxide 24 Anion Gap 12 BUN 67 H Creatinine 3.7 H Est GFR ( Amer) 15 Est GFR (Non-Af Amer) 12 POC Glucose (mg/dL) Random Glucose 177 H Calcium 7.4 L Phosphorus 5.8 H Magnesium 1.4 L Total Bilirubin 0.2 AST 20 ALT 18 Alkaline Phosphatase 114 Ammonia Lactate Dehydrogenase 489 Total Creatine Kinase 114 Troponin I 0.08 NT-Pro-B Natriuret Pep 64462 H Total Protein 5.8 Albumin 2.4 L Globulin 3.4 Albumin/Globulin Ratio 0.7 L Procalcitonin 0.43 Venous Blood Potassium Urine Color Yellow Urine Appearance Clear Urine pH 5.5 Ur Specific [place] >= 1.030 Urine Protein 100 H Urine Glucose (UA) Negative Urine Ketones Negative Urine Blood Negative Urine Nitrate Negative Urine Bilirubin Negative Urine Urobilinogen 0.2 Ur Leukocyte Esterase Negative Urine RBC 1 - 3 Urine WBC 0 - 2 Ur Epithelial Cells 3 - 4 Amorphous Sediment Small Urine Bacteria Neg Urine Other Uyeast 04/25/18 04/25/18 04/25/18 20:30 20:40 23:55 WBC RBC Hgb Hct MCV MCH MCHC RDW Plt Count MPV Gran % Lymph % (Auto) [place] % (Auto) Eos % (Auto) Baso % (Auto) Gran # Lymph # (Auto) [place] # (Auto) Eos # (Auto) Baso # (Auto) PT INR APTT pCO2 49 H 46 H pO2 75.0 L 71.0 L HCO3 23.0 22.6 ABG pH 7.28 L 7.30 L ABG Total CO2 24.5 24.0 ABG O2 Saturation 98.3 H 96.9 ABG O2 Content 11.7 L 13.2 L ABG Base Excess -3.7 L -3.8 L ABG Hemoglobin 8.7 L 10.0 L ABG Carboxyhemoglobin 2.7 H 2.8 H POC ABG HHb (Measured) 1.6 3.0 ABG Methemoglobin 0.8 0.7 ABG O2 Capacity 11.9 L 13.6 L VBG pH VBG pCO2 VBG HCO3 VBG Total CO2 VBG O2 Sat (Calc) VBG Base Excess VBG Potassium Hgb O2 Saturation 94.9 L 93.5 L Sodium Chloride Glucose Lactate FiO2 25.0 25.0 Potassium Carbon Dioxide Anion Gap BUN Creatinine Est GFR ( Amer) Est GFR (Non-Af Amer) POC Glucose (mg/dL) Random Glucose Calcium Phosphorus Magnesium Total Bilirubin AST ALT Alkaline Phosphatase Ammonia 12 Lactate Dehydrogenase Total Creatine Kinase Troponin I NT-Pro-B Natriuret Pep Total Protein Albumin Globulin Albumin/Globulin Ratio Procalcitonin Venous Blood Potassium Urine Color Urine Appearance Urine pH Ur Specific [place] Urine Protein Urine Glucose (UA) Urine Ketones Urine Blood Urine Nitrate Urine Bilirubin Urine Urobilinogen Ur Leukocyte Esterase Urine RBC Urine WBC Ur Epithelial Cells Amorphous Sediment Urine Bacteria Urine Other 04/26/18 04/26/18 04/26/18 07:36 11:00 11:00 WBC 11.8 H RBC 3.41 L Hgb 9.6 L Hct 29.7 L MCV 87.1 MCH 28.2 MCHC 32.3 RDW 18.5 H Plt Count 523 H MPV 10.6 Gran % Lymph % (Auto) [place] % (Auto) Eos % (Auto) Baso % (Auto) Gran # Lymph # (Auto) [place] # (Auto) Eos # (Auto) Baso # (Auto) PT INR APTT pCO2 pO2 HCO3 ABG pH ABG Total CO2 ABG O2 Saturation ABG O2 Content ABG Base Excess ABG Hemoglobin ABG Carboxyhemoglobin POC ABG HHb (Measured) ABG Methemoglobin ABG O2 Capacity VBG pH VBG pCO2 VBG HCO3 VBG Total CO2 VBG O2 Sat (Calc) VBG Base Excess VBG Potassium Hgb O2 Saturation Sodium 136 Chloride 106 Glucose Lactate FiO2 Potassium 4.5 Carbon Dioxide 24 Anion Gap 11 BUN 66 H Creatinine 2.9 H Est GFR ( Amer) 20 Est GFR (Non-Af Amer) 16 POC Glucose (mg/dL) 146 H Random Glucose 162 H Calcium 7.8 L Phosphorus 5.5 H Magnesium 1.7 Total Bilirubin AST ALT Alkaline Phosphatase Ammonia Lactate Dehydrogenase Total Creatine Kinase Troponin I NT-Pro-B Natriuret Pep Total Protein Albumin Globulin Albumin/Globulin Ratio Procalcitonin Venous Blood Potassium Urine Color Urine Appearance Urine pH Ur Specific [place] Urine Protein Urine Glucose (UA) Urine Ketones Urine Blood Urine Nitrate Urine Bilirubin Urine Urobilinogen Ur Leukocyte Esterase Urine RBC Urine WBC Ur Epithelial Cells Amorphous Sediment Urine Bacteria Urine Other 04/26/18 11:48 WBC RBC Hgb Hct MCV MCH MCHC RDW Plt Count MPV Gran % Lymph % (Auto) [place] % (Auto) Eos % (Auto) Baso % (Auto) Gran # Lymph # (Auto) [place] # (Auto) Eos # (Auto) Baso # (Auto) PT INR APTT pCO2 pO2 HCO3 ABG pH ABG Total CO2 ABG O2 Saturation ABG O2 Content ABG Base Excess ABG Hemoglobin ABG Carboxyhemoglobin POC ABG HHb (Measured) ABG Methemoglobin ABG O2 Capacity VBG pH VBG pCO2 VBG HCO3 VBG Total CO2 VBG O2 Sat (Calc) VBG Base Excess VBG Potassium Hgb O2 Saturation Sodium Chloride Glucose Lactate FiO2 Potassium Carbon Dioxide Anion Gap BUN Creatinine Est GFR ( Amer) Est GFR (Non-Af Amer) POC Glucose (mg/dL) 154 H Random Glucose Calcium Phosphorus Magnesium Total Bilirubin AST ALT Alkaline Phosphatase Ammonia Lactate Dehydrogenase Total Creatine Kinase Troponin I NT-Pro-B Natriuret Pep Total Protein Albumin Globulin Albumin/Globulin Ratio Procalcitonin Venous Blood Potassium Urine Color Urine Appearance Urine pH Ur Specific [place] Urine Protein Urine Glucose (UA) Urine Ketones Urine Blood Urine Nitrate Urine Bilirubin Urine Urobilinogen Ur Leukocyte Esterase Urine RBC Urine WBC Ur Epithelial Cells Amorphous Sediment Urine Bacteria Urine Other
[2018-04-26] MEDS: Pantoprazole 20 mg EC Tab PO SCH (13:26)
[2018-04-26] MEDS ORDERED: Metoprolol Succinate 50 mg XL Tab PO ONE (15:07)
[2018-04-26] MEDS ORDERED: Labetalol 5 mg/ml Inj 20ML IV PRN (15:26)
--- NOTE | 2018-04-26 17:02 | CON ---
DATE OF CONSULTATION: 04/26/2018 CHIEF COMPLAINT: Weakness for several days. HISTORY OF PRESENT ILLNESS: This is a 62-year-old female with a history of small bowel obstruction, recent abdominal surgery, hypertension, hyperlipidemia, diabetes mellitus, sleep apnea, chronic obstructive lung disease, congestive heart failure. [facility] a [facility] and admitted with weakness and change of mental status. Denies any chest pain or abdominal pain. At this time, she states she was having intermittent abdominal pain earlier and mild temperatures. The patient also has a history of rectal cancer, GI bleed, and GERD. The patient also has a history of VRE and ESBL urinary tract infections in addition to anxiety. PAST MEDICAL HISTORY: Significant for coronary artery disease, recent ND, chronic obstructive lung disease, anemia, ESBL and VRE urinary tract infection, anxiety, sleep apnea, diabetes mellitus, hypertension, recent small bowel obstruction, ventral hernia status post ventral incarcerated hernia repair, lysis of adhesions and revision of a colostomy and recent hospitalization. PAST SURGICAL HISTORY: Significant for recent abdominal surgery. The patient had surgery on 04/14/2018 exploratory laparotomy, lysis of adhesions, fistula, hernia repair ventral with a mesh, and colostomy reversion. This was done on 04/14/2018. The patient also has a history of appendectomy and colostomy. MEDICATIONS: Reviewed. ALLERGIES: THE PATIENT HAS NO KNOWN ALLERGIES. REVIEW OF SYSTEMS: A 12-point review of systems is performed. PHYSICAL EXAMINATION: GENERAL: She is in bed with super morbid obesity with BMI of 52. Overall in no acute distress. VITAL SIGNS: Low-grade fever with temperature of 99.1; heart rate of 74, it was up to 92; respiratory rate of 19; blood pressure is 170/60. The patient is saturating at 97% and it was down to 92% saturation. HEENT: Unremarkable. NECK: Supple. LUNGS: Decreased breath sounds. HEART: Normal S1, S2. ABDOMEN: Distended. No rebound or guarding. She has mild erythema at the wound site. She also has a wound from the previous surgery. LABORATORY EXAMINATION: The patient has a white count of 10,000, hemoglobin of 8, platelets of 479. Chemistries reveal that the creatinine is 3.7 she had had elevated creatinine, and upon discharge on 04/19/2018 creatinine was 1.6, now it is up to 3.7. Glucose is elevated. The patient has an elevated BMP and she has renal disease and she is obese. Review of microbiology from previous has yeast in urine from 04/14/2018 and blood cultures have always been reported to be negative in the past. In 2015, the patient had a Peptostreptococcus in the blood, had Klebsiella in the urine in 2014, had Proteus in the wound of the leg in 2015, ESBL in the urine in 2013, and VRE in urine in 01/2014. The patient had a CAT scan of the head. The results are not available. ER physician's notes reviewed, Dr. Best De Dios. The patient's medications at home are reviewed. ASSESSMENT AND PLAN: This is a 62-year-old female with hypertension, hyperlipidemia, diabetes, super morbid obesity with BMI of 52, sleep apnea, chronic obstructive lung disease, congestive heart failure, coronary artery disease, myocardial infarction, anemia, anxiety, history of gastrointestinal bleed, history of rectal cancer, who had a negative HIV, negative hepatitis profile in 2016 for the HIV and hepatitis profile in 03/2018, who has had surgery on 04/14/2018, over a month ago, now is admitted with weakness and with acute diastolic congestive heart failure on top of chronic congestive heart failure and abdominal wall cellulitis at the wound site with acute kidney injury on top of chronic renal failure. We will start the patient on Zyvox and meropenem. Should have a CAT scan of the abdomen and pelvis to rule out a collection. However, because of the extremely large size and BMI of 52, most difficult to do a CAT I am told by nursing staff. We will discuss with PMD. We will treat with Zyvox and meropenem. The meropenem will be adjusted for renal disease. I will follow closely with you. Lawrence Cheek MD
[2018-04-26] MEDS: NIFEdipine 60 mg ER Tab PO SCH (17:50)
[2018-04-26] MEDS: Arformoterol 15 mcg/2 ml Inh Sol IH SCH (20:23)
[2018-04-26] MEDS: Insulin Detemir 100 units/ml Vial (Levemir) SC SCH (22:00)
--- NOTE | 2018-04-26 22:21 | CON ---
DATE OF CONSULTATION: 04/26/2018 HISTORY OF PRESENT ILLNESS: This is a 62-year-old female with a past medical history and a recent abdominal surgery for a bowel obstruction. Also, suffers from hypertension, diabetes, sleep apnea, COPD, CHF. The patient was in the [facility] and had a change in mental status, was transferred to [facility], and a CAT scan of the head was done, which was normal. Family at bedside. Spoke to the family in detail. The patient is more awake, less confused now. SOCIAL HISTORY: Does not smoke. Does not drink. ALLERGIES: NO KNOWN DRUG ALLERGIES. PHYSICAL EXAMINATION: HEENT: Normocephalic, atraumatic. NECK: Supple. NEUROLOGIC: Awake, oriented to self. Cranial nerves II through XII are tested. Pupils reactive. EOM intact. Visual field full. No facial asymmetry. Tongue midline. Motor examination is spontaneous. Movement of the extremities noted, but limited. Deep tendon reflexes 1+. Both plantars are downgoing. Sensory appears intact. Cerebellar gait deferred. IMPRESSION AND PLAN: A 62-year-old female with past medical history of hypertension, diabetes, hyperlipidemia, sleep apnea, chronic obstructive pulmonary disease, congestive heart failure, coronary artery disease, and recently had a surgery. The patient is still recovering. Mental state is improving. CAT scan of the head was negative. Continue present management. We will follow up. Timothy Berger MD
--- NOTE | 2018-04-27 07:28 | CP.PCM.CON ---
History of Present Illness - History of Present Illness History of Present Illness: Surgery: Dr. Mckeon Reason for consult: s/p ely-stomal hernia repair, revision of colostomy and creation of new 2nd mucous fistula HPI: Patient is a 62 y/o female w/ history of rectal CA s/p APR by a Dr. Mckinley. Patient presented earlier this month with SBO s/p ely-stomal hernia which required surgical intervention. Patient underwent ely-stomal hernia repair, revision of loop colostomy to end colostomy, and creation of a new 2nd mucous fistula on the superior left abdomen. Post operative course unremarkable and was d/c'd home. Patient now presents with AMS and undergoing work up with medical team. Surgery consulted for evaluation of post surgical sites. Patient tolerating diet and ostomy continues to function. PMHx of CAD, CHF, HTN, DVT/PE, rectal ca PSHx: loop colostomy, APR, appendectomy, cardiac stents, ely-stomal hernia repair w/ colostomy revision and creation of 2nd mucous fistula SHx: denies tobacco, EtOH, drug use Review of Systems - Review of Systems Systems not reviewed;Unavailable: Altered Mental Status Past Patient History - Infectious Disease Hx of Infectious Diseases: None - Tetanus Immunizations Tetanus Immunization: Unknown - Past Social History Smoking Status: Never Smoked - CARDIAC Hx Cardiac Disorders: Yes (CAD with stent placement,) Hx Congestive Heart Failure: Yes Hx Hypertension: Yes - PULMONARY Hx Chronic Obstructive Pulmonary Disease (COPD): Yes Hx Respiratory Tract Infection: Yes Hx Sleep Apnea: Yes - NEUROLOGICAL Hx Neurological Disorder: Yes Hx Dizziness: Yes - HEENT Hx Macular Degeneration: No - RENAL Hx Renal Failure: Yes - ENDOCRINE/METABOLIC Hx Diabetes Mellitus Type 2: Yes - HEMATOLOGICAL/ONCOLOGICAL Hx Blood Disorders: Yes Hx Anemia: Yes - INTEGUMENTARY Hx Dermatological Problems: No - MUSCULOSKELETAL/RHEUMATOLOGICAL Hx Falls: No - GASTROINTESTINAL Hx Gastrointestinal Disorders: Yes (RECTAL CA WITH COLOSTOMY,GI BLEED) Hx Colostomy: Yes Hx Gastroesophageal Reflux: Yes - GENITOURINARY/GYNECOLOGICAL Hx Genitourinary Disorders: Yes (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,UTI) - PSYCHIATRIC Hx Psychophysiologic Disorder: Yes Hx Anxiety: Yes Hx Substance Use: No - SURGICAL HISTORY Hx Appendectomy: Yes Hx Coronary Stent: Yes Hx Vascular Access Device: Yes Other/Comment: colostomy - ANESTHESIA Hx Anesthesia: Yes Hx Anesthesia Reactions: No Hx Malignant Hyperthermia: No Meds Allergies/Adverse Reactions: Allergies Allergy/AdvReac Type Severity Reaction Status Date / Time No Known Allergies Allergy Verified 04/08/18 21:16 - Medications Medications: Current Medications Amlodipine Besylate (Norvasc) 10 mg PO DAILY [facility] Last Admin: 04/26/18 10:20 Dose: 10 mg Apixaban (Eliquis) 2.5 mg PO BID [facility]; Protocol Last Admin: 04/26/18 17:49 Dose: 2.5 mg Arformoterol Tartrate (Brovana) 15 mcg IH [id number] [facility] Last Admin: 04/26/18 20:23 Dose: 15 mcg Aspirin (Ecotrin) 81 mg PO DAILY [facility] Last Admin: 04/26/18 10:23 Dose: 81 mg Atorvastatin Calcium (Lipitor) 20 mg PO [facility] Last Admin: 04/26/18 21:49 Dose: 20 mg Docusate Sodium (Colace) 100 mg PO TID [facility] Last Admin: 04/26/18 17:51 Dose: 100 mg Ergocalciferol (Drisdol 50,000 Intl Units Cap) 1 cap PO Q7D [facility] Last Admin: 04/26/18 10:23 Dose: 1 cap Ferrous Gluconate (Fergon) 324 mg PO TID [facility] Last Admin: 04/26/18 17:49 Dose: 324 mg Hydralazine HCl (Apresoline) 100 mg PO TID [facility] Last Admin: 04/26/18 17:49 Dose: 100 mg Hydromorphone HCl (Dilaudid) 2 mg PO Q6H PRN PRN Reason: Pain, moderate (4-7) Last Admin: 04/26/18 22:25 Dose: 2 mg Meropenem/Sodium Chloride (Merrem Iv 500 Mg/Ns 50 Ml) 500 mg in 50 mls @ 100 mls/hr IVPB Q12 [facility]; Protocol Stop: 05/05/18 10:01 Last Admin: 04/26/18 21:48 Dose: 100 mls/hr Sodium Chloride (Sodium Chloride 0.9%) 1,000 mls @ 50 mls/hr IV .Q20H [facility] Last Admin: 04/26/18 11:36 Dose: 50 mls/hr Insulin Detemir (Levemir) 20 unit SC [facility] Last Admin: 04/26/18 22:00 Dose: Not Given Insulin Human Regular (Humulin R Low) 0 units SC ACHS [facility]; Protocol Last Admin: 04/26/18 22:28 Dose: Not Given Isosorbide Mononitrate (Imdur Er) 60 mg PO DAILY [facility] Last Admin: 04/26/18 14:41 Dose: 60 mg Labetalol HCl (Trandate) 200 mg PO TID [facility] Last Admin: 04/26/18 17:50 Dose: 200 mg Labetalol HCl (Trandate) 20 mg IV Q4 PRN PRN Reason: Other Levalbuterol HCl (Xopenex) 1.25 mg IH [id number] PRN PRN Reason: Shortness of Breath Linezolid (Zyvox) 600 mg PO BID [facility]; Protocol Stop: 05/05/18 10:01 Last Admin: 04/26/18 17:50 Dose: 600 mg Nifedipine (Procardia Xl) 60 mg PO QPM [facility] Last Admin: 04/26/18 17:50 Dose: 60 mg Pantoprazole Sodium (Protonix Ec Tab) 20 mg PO ACB [facility] Last Admin: 04/26/18 13:26 Dose: 20 mg Silver Sulfadiazine (Silvadene 1% 25 Gm) 0 gm TP BID [facility] Vitamin B Complex/Vit C/Folic Acid (Nephro-Holland) 1 tab PO 0800 [facility] Physical Exam - Constitutional Appears: No Acute Distress, Chronically Ill - Head Exam Head Exam: ATRAUMATIC, NORMOCEPHALIC - Eye Exam Eye Exam: EOMI, Normal appearance - ENT Exam ENT Exam: Mucous Membranes Moist - Respiratory Exam Respiratory Exam: NORMAL BREATHING PATTERN. absent: Respiratory Distress - Cardiovascular Exam Cardiovascular Exam: absent: Tachycardia - GI/Abdominal Exam GI & Abdominal Exam: Soft, Tenderness (mild ely-incisional, some redness around superior portion of incision: staple and retention sutures remain in place, skin edges well approximated. ) Additional comments: superior and inferior left abdominal mucous fistulas, healthy appearing ostomy right mid abdomen and functioning - Rectal Exam Additional comments: s/p APR - Neurological Exam Neurological exam: Alert - Psychiatric Exam Psychiatric exam: Normal Affect, Normal Mood - Skin Skin Exam: Dry, Normal Color, Warm Results - Vital Signs Recent Vital Signs: Last Vital Signs Temp 98.4 F 04/27/18 05:41 Pulse 55 L 04/27/18 06:00 Resp 20 04/27/18 05:41 BP 139/50 L 04/27/18 05:41 Pulse Ox 98 04/27/18 05:41 - Labs Result Diagrams: 04/26/18 11:00 04/26/18 11:00 Labs: Laboratory Results - last 24 hr 04/26/18 04/26/18 04/26/18 07:36 11:00 11:00 WBC 11.8 H RBC 3.41 L Hgb 9.6 L Hct 29.7 L MCV 87.1 MCH 28.2 MCHC 32.3 RDW 18.5 H Plt Count 523 H MPV 10.6 Sodium 136 Potassium 4.5 Chloride 106 Carbon Dioxide 24 Anion Gap 11 BUN 66 H Creatinine 2.9 H Est GFR ( Amer) 20 Est GFR (Non-Af Amer) 16 POC Glucose (mg/dL) 146 H Random Glucose 162 H Calcium 7.8 L Phosphorus 5.5 H Magnesium 1.7 04/26/18 04/26/18 04/26/18 11:48 17:07 21:46 WBC RBC Hgb Hct MCV MCH MCHC RDW Plt Count MPV Sodium Potassium Chloride Carbon Dioxide Anion Gap BUN Creatinine Est GFR ( Amer) Est GFR (Non-Af Amer) POC Glucose (mg/dL) 154 H 171 H 179 H Random Glucose Calcium Phosphorus Magnesium 04/27/18 07:06 WBC RBC Hgb Hct MCV MCH MCHC RDW Plt Count MPV Sodium Potassium Chloride Carbon Dioxide Anion Gap BUN Creatinine Est GFR ( Amer) Est GFR (Non-Af Amer) POC Glucose (mg/dL) 153 H Random Glucose Calcium Phosphorus Magnesium Assessment & Plan - Assessment and Plan (Free Text) Assessment: 62 y/o female s/p ely-stomal hernia repair 2/2 SBO w/ revision of colostomy and creation of 2nd superior mucous fistula on 04/08/18 Plan: -apply telfa dressing and tegaderm of superior and inferior left sided mucous fistulas -cont ostomy care -will remove retention sutures and some donita on this admission -no surgical intervention -further care per medical team AKWhite PGY4
[2018-04-27] MEDS: Arformoterol 15 mcg/2 ml Inh Sol IH SCH ×2 (08:05→20:01)
[2018-04-27] MEDS: Insulin Reg-LOW-Coverage SC SCH ×4 (08:18→21:34)
[2018-04-27] MEDS: Multivitamin Vitamin B Complex (Nephro-Vite) Tab PO SCH (08:19)
[2018-04-27] MEDS: Sodium Chloride 0.9% 1,000 ML IV SCH (08:19)
[2018-04-27] MEDS: Pantoprazole 20 mg EC Tab PO SCH (08:19)
[2018-04-27] MEDS ORDERED: Silver Sulfadiazine 1% Cream (25 gm) TP SCH (10:00)
[2018-04-27] MEDS: Silver Sulfadiazine 1% Cream (25 gm) TP SCH ×3 (10:30→17:06)
[2018-04-27] MEDS: MEROPENEM 500 MG in NS 500 MG/50 ML BAG IVPB SCH ×2 (10:30→21:33)
--- NOTE | 2018-04-27 12:49 | HP ---
DATE OF EXAM: 04/26/2018 MAIN COMPLAINT: The patient brought in from rehab unit [place] to emergency room because of generalized severe weakness and surgery. HISTORY OF PRESENT ILLNESS: This is a 62-year-old female, had recently discharged from the hospital, went to rehab at [facility]. The patient has small bowel obstruction at this time. She was doing fine; however, she felt very lethargic, no energy, not feeling well, not drinking enough and feels very tired and also sleepy. She denied any fever or chills. She denied any nausea or vomiting. No other complaints. No abdominal pain. PAST MEDICAL HISTORY: As I mentioned, she does have history of insulin-dependent diabetes, hypertension, hypercholesterolemia, renal insufficiency, hypercoagulable state, DVT, PE in the past, right-sided heart failure with good LV function on the left side, history of RCA stent placement. She has a history of morbid obesity, COPD, obstructive sleep apnea, hypertension, difficult to control. SURGICAL HISTORY: She has a rectal CA, treated with surgery with colostomy. She had also small bowel obstruction recently two weeks ago, treated with hernia repair and revision of the colostomy and history of rectal CA, chemotherapy and radiation was given. ALLERGIES: SHE HAS NO KNOWN ALLERGY. MEDICATIONS: She takes a lot of medications. She is taking clonidine patch 0.3 once a week, Toprol-XL 150, hydralazine 100 three times daily, Norvasc 10, simvastatin 40, Protonix 20, and Xopenex, Levemir 20 at bedtime, Dilaudid 4 mg every 6 hours, iron pills, vitamin D, Colace, Brovana, Eliquis 2.5 twice daily, Lyrica 1 tab p.o. daily, 1 tab twice daily 50 mg, oxybutynin ER was on hold. REVIEW OF SYSTEMS: As in the present illness, she is weak, no energy. She has a colostomy and hepatitis down. PHYSICAL EXAMINATION VITAL SIGNS: On 04/26/2018, the patient has temperature 98.1, heart rate 81, blood pressure 148/66, respirations 18, saturation 100%, above 95% on 30% FiO2. HEAD AND NECK: Normal. No JVD. No thyromegaly. CHEST: Clear bilaterally. CARDIAC: First sound and second sound normal. ABDOMEN: Obese with midline suture line stable and nontender. EXTREMITIES: Mild edema on the pedal area, dorsum of the foot. NEUROLOGIC: She is alert, awake, and oriented x3. She moves all extremities; however, she intermittently becomes lethargic. LABORATORY DATA: Her laboratory study when she came to the ER was; white count 10.9, hemoglobin 8.3, hematocrit 27.9, and platelets 479,000. Chemistry shows sodium 136, potassium 4.5, chloride 106, bicarb 24. BUN 66, creatinine 2.9. Initially when she came in, BUN 67 and creatinine was 3.7. The patient's blood sugar 162, calcium 7.8, and phosphorous 5.5, magnesium 1.7. The patient also had a CT of the head which was negative, because of lethargy and it was negative. She also had chest x-ray and chest x-ray shows moderate pulmonary vascular congestion. The patient is morbidly obese, difficult to position here. When I was here to do procalcitonin was 0.43, ammonia level was 12. The patient's BMP was 22,200, troponin 0.08, and magnesium was 1.4. IMPRESSION AND PLAN: 1. Change in mental status, etiology multifactorial, could be medications, could be clonidine patch. We will discuss further with anthropometrist to have blood pressure medication changed, could be a possibility. Other differential diagnosis could be sepsis. We will get blood culture, urine cultures and other etiology could be dehydration. 2. Renal failure. Acute worsening of her chronic renal failure secondary to dehydration. The patient is not eating. She was on Zaroxolyn and Lasix which was started in rehab, but however, has a poor appetite, is also contributing factors. We will discontinue that, we will continue IV hydration at this time. Monitor her BUN and creatinine and we will keep her leg elevated for swelling. 3. Right-sided heart failure. We then get a Cardiology to look into her, she did have a history of [id number] myocardial infarctions prior to her small bowel surgery. 4. Coronary artery disease. Non-ST elevation myocardial infarction two weeks ago. Continue beta-blockers, continue current therapy. 5. Diabetes, obstructive sleep apnea, morbid obesity, chronic obstructive pulmonary disease, hypertension, rectal carcinoma with colostomy revisions. We will continue current therapy. We will continue Eliquis for hypercoagulable state and history of deep venous thrombosis. 6. Anemia, hypercoagulable state. Electrolyte abnormalities were replaced. We will continue current therapy. We will follow up clinically on the patient and we will get ID consult, Cardiology , consult, Pulmonary consult. We will put the patient on BiPAP while sleep and we will follow up clinically. We will continue IV fluid and hydration and monitor labs daily. Please be advised this is a note for 04/26/2018. Elroy Florian MD
[2018-04-27 15:46] LABS: INR 1.38; PARTIAL THROMBOPLASTIN TIME 29.1 Seconds (25.1-36.5); PROTHROMBIN TIME 15.8 SECONDS (9.4-12.5)
--- NOTE | 2018-04-27 16:05 | CP.PCM.PCO ---
Physician Communication Note - Physician Communication Note Physician Communication Note: confusion sec to metabolic encephaloapthy. c/w supprotive mx.
[2018-04-27 16:14] LABS: ALB/GLOB RATIO 0.7 (1.1-1.8); ALBUMIN 2.2 g/dL (3.0-4.8); CALCIUM 7.6 mg/dL (8.4-10.5)
[2018-04-27] MEDS: NIFEdipine 60 mg ER Tab PO SCH (17:05)
[2018-04-27 17:26] LABS: BASO # 0.01 K/mm3 (0.0-2.0); BASO % 0.1 % (0.0-3.0); EOS # 0.1 (0.0-0.7); EOS % 1.7 % (1.5-5.0); GRAN # 5.78 (1.4-6.5); GRAN % 76.5 % (50.0-68.0); HEMOGLOBIN 7.6 g/dL (12.0-16.0); LYMPH % 13.8 % (22.0-35.0); MEAN CELL VOLUME 88.3 fl (80.0-105.0); MEAN CORPUSCULAR HEMOGLOBIN 26.9 pg (25.0-35.0); MEAN CORPUSCULAR HGB CONC 30.4 g/dl (31.0-37.0); MEAN PLATELET VOLUME 10.4 fl (7.0-11.0); MONO # 0.6 (0.1-0.6); MONO % 7.9 % (1.0-6.0); RBC 2.83 10^6/uL (3.5-6.1); RED CELL DISTRIBUTION WIDTH 18.8 % (11.5-14.5); WHITE BLOOD COUNT 7.6 10^3/uL (4.5-11.0)
[2018-04-27] MEDS: Levalbuterol 1.25 MG/3 ML Inhal Soln UD IH PRN (20:01)
--- NOTE | 2018-04-27 21:59 | CON ---
DATE OF CONSULTATION: 04/27/2018 REFERRING PHYSICIAN: Elroy Florian MD REASON FOR CONSULTATION: Hypoventilation syndrome, morbid obesity, may have sleep apnea syndrome, pleural effusion. HISTORY OF PRESENT ILLNESS: This is a 62-year-old female, well known to me from previous admission with multiple medical issues including chronic obstructive lung disease, hypoventilation syndrome, may have sleep apnea syndrome, morbid obesity, insulin-dependent diabetes, hypertension, renal failure, history of PE/DVT in the past, heart failure with a normal LV ejection fraction, coronary artery disease, history of coronary stent, hypertension, brought into ER with lethargy, does not feel well, body aches and pains, no vomiting, no hematuria. Recently had abdominal ventral hernia repair with relocation of colostomy, has some tenderness on the incision site. PAST MEDICAL HISTORY: As history of present illness. FAMILY HISTORY: No significant cardiopulmonary disease reported. SOCIAL HISTORY: Denies any smoking or alcohol use. MEDICATIONS: She is on hydralazine 100 mg three times a day, Brovana inhaled twice a day, Colace 100 mg three times a day, Dilaudid 2 mg every 6 hours p.r.n., vitamin D 50,000 units every 7 days, Ecotrin 81 mg daily, ferrous gluconate 324 mg three times a day, insulin coverage, Imdur ER 60 mg daily, Levemir 20 units subcu h.s., Lipitor 20 mg h.s., meropenem 500 mg every 12 hours, vitamin B complex daily, Norvasc 10 mg daily, Procardia XL 60 mg daily, Protonix 20 mg a.c., IV fluid normal saline 50 mL/h, labetalol 20 mg every 4 hours p.r.n., also labetalol 200 mg three times a day p.o., Xopenex inhaled every 6 hours p.r.n., Zyvox 600 mg twice a day. ALLERGIES: NONE KNOWN. REVIEW OF SYSTEMS: No headache, no rhinitis. No cough, but short of breath. Does not feel well. Has some abdominal pain. Colostomy working well. No dysuria, not much leg swelling. PHYSICAL EXAMINATION: GENERAL: No acute distress. VITAL SIGNS: Temp is 98, heart rate 75, respiratory rate is 22, blood pressure 132/54, pulse ox 98% on nasal cannula. HEENT: Moist mucous membranes. Crowded airway. Mallampati score is 4. NECK: Supple. No JVD. LUNGS: Few crackles at the bases. Scattered rhonchi. HEART: S1 and S2. ABDOMEN: Midline incisions. Suture line looks okay. There is some erythema on the suture line. The colostomy is working well. EXTREMITIES: Not much edema. NEUROLOGICAL: Awake, alert, follows simple commands. LABORATORY DATA: Hemoglobin 7.6, hematocrit 25.0, WBC 7.6, platelet count is 419. INR 1.38. PTT is 29. Blood gases show pH 7.30, pCO2 of 46, O2 of 71, this is on nasal cannula. Sodium 137, potassium 4.3, chloride 107, bicarbonate 25, BUN 65, creatinine 2.5, glucose 179, calcium 7.6. AST 21, ALT 28, alk phos is 107. Albumin is 2.2. Urinalysis shows wbc's 0-2, rbc's 1-3. Microbiology: Blood culture, there is no growth. Urine culture, there is no growth. Chest x-ray on admission shows some congestion and small effusion. CAT scan of the head was done, which shows normal CT of the head. IMPRESSION AND PLAN: Recently had a small bowel obstruction with ventral hernia, requiring surgery, relocation of colostomy, obstructive sleep apnea syndrome, obesity-hypoventilation syndrome, history of pulmonary embolism, deep vein thrombosis, morbid obesity, diabetes, hypertension, being treated for healthcare-associated sepsis, probably the source could be the incision site. Pulmonary point of view, will continue BiPAP while sleeping. Keep head elevated at 45 degrees. Gastric prophylaxis, DVT prophylaxis. Pressure ulcer precautions. Encouraged BiPAP use. Spoke to nursing staff. Being followed by Infectious Disease and Neurology. We will get physical therapy involved to get her out of bed to chair if possible. Thank you and we will follow with you. Pamela Ayala MD
[2018-04-27] MEDS: Insulin Detemir 100 units/ml Vial (Levemir) SC SCH (22:13)
--- NOTE | 2018-04-27 23:00 | CON ---
DATE OF CONSULTATION: 04/27/2018 REFERRING PHYSICIAN: Dr. Faye. CHIEF COMPLAINT: Weakness, neurologic deficit, mental status change. HISTORY OF PRESENT ILLNESS: The patient is a 62-year-old female who follows with Dr. Faye for a history of rectal cancer, unresectable, with colostomy, admitted by the emergency room by her primary doctor, Dr. Florian, after increasing lethargy with mental status change. At this time, there was also a report of elevated temperatures. It is known that the patient was recently discharged from [facility] after she was postoperative for hernia repair with revision of her colostomy and a [id number] myocardial infarction. She also suffers from pulmonary hypertension and COPD for which she uses BiPAP, for which she is noncompliant. Also, history of pulmonary embolism and DVT for which she is on anticoagulation, which was held due to abnormal value of PTT done on admission. We will repeat these values as this may have been a lab error from port blood drawn. We will draw peripheral stick to assess any need for intervention. In the interim, both Eliquis and aspirin are on hold for now as the PTT was reported as 118 with a repeat value pending. Otherwise, the patient is seen lying awake with BiPAP on with the patient requesting that the BiPAP be taken off, otherwise in no acute distress. Denying any pain. PAST MEDICAL HISTORY: As above, history of rectal cancer with colostomy recently revised, diabetes mellitus, history of intractable pain, hypercoagulable state, history of pulmonary emboli, DVT, CHF, morbid obesity, status post vena caval filter placement, pulmonary hypertension, chronic renal disease, history of recent GA, sepsis secondary to left medial thigh abscess and unresectable carcinoma of the rectum with colostomy, anemia of chronic disease, also sleep apnea, on BiPAP. SOCIAL HISTORY: The patient is a nonsmoker, nonethanolic, otherwise noncontributory. MEDICATIONS: Her medications at this time included Eliquis which is now on hold, Lyrica, metoprolol, Imdur, amlodipine, aspirin, Plavix, fentanyl patch, glipizide, Detrol, insulin and Prilosec. ALLERGIES: NO KNOWN ALLERGIES. REVIEW OF SYSTEMS: A 12-point review of systems is negative to questioning except for as mentioned in the history of present illness. PHYSICAL EXAMINATION: VITAL SIGNS: Temperature 97.4, pulse 80, respirations 18, blood pressure 139/53 with a pulse ox of 98%. At present, she is on BiPAP. HEENT: Unremarkable, with BiPAP on. NECK: Supple. HEART: Regular rate. LUNGS: Decreased breath sounds due to body habitus. ABDOMEN: Obese, soft with soiled dressing, status post her surgical repair with viable colostomy noted. EXTREMITIES: Chronic +1 edema of the feet. NEUROLOGIC: Awake and alert, but lethargic. LABORATORY DATA: The patient's labs were done. White blood cell count from yesterday, with today's pending, is 11.8; hemoglobin of 9.6, up from 8.3 the day prior; hematocrit of 29.7; platelet count of 523,000. Her PTT value from 04/25/2018 was 118.1 with a repeat value today of 29.1. Her metabolic panel from earlier today is showing a BUN of 65, creatinine of 2.5, down from a creatinine of 3.7 on admission two days prior. Nonfasting sugar of 178, calcium of 7.6, total protein of 5.3. Urine culture showed 100 mg/dL of protein, otherwise negative for sugar, blood, and leukocyte esterase was negative. The patient had a chest x-ray done two days prior that was read as cardiomegaly, moderate pulmonary venous congestion, right side Mediport. EKG was done two days prior. It was read as RSR, baseline artifact, probably no change. A CAT scan of her head was done two days prior. It was read as normal CT of the head. ASSESSMENT: Change in mental status, chronic kidney disease, diabetes mellitus, anemia, hypercoagulable state, history of pulmonary embolism, deep venous thrombosis, status post revision of colostomy with hernia repair, morbid obesity, history of [id number] myocardial infarction, recently pulmonary hypertension, history of rectal carcinoma, history of vena cava filter placement. PLAN: To continue present medical regimen. We will repeat the labs with a peripheral stick, not from port blood as this may have been a lab error with the patient showing no active bleeding except for soiling of the wound site from recent surgical repair of her revision of her colostomy and her repair of her herniae. The patient appears relatively alert this visit with neurological consult appreciated. We will recommend that her Eliquis be restarted once her values are known for repeat peripheral stick blood with consideration for evaluation of her anemic indices, again to be done with consideration for transfusion of packed red blood cells should it be indicated. However, in the interim, we will hold her aspirin for now and her Eliquis for now with observation and continuation of BiPAP as per her pulmonary heritage consultant, Dr. Ayala. This is a complex patient with a comprehensive medically necessary and appropriate visit carried out in excess of 50 minutes with the patient's plan reviewed with the nurse attending her. Zuhair Herrera MD
[2018-04-27] MEDS: Simethicone 80 mg Chewtab PO PRN (23:16)
--- NOTE | 2018-04-28 01:00 | CON ---
DATE OF CONSULTATION: 04/27/2018 REASON FOR CONSULTATION: Coronary artery disease and congestive heart failure. HISTORY OF PRESENT ILLNESS: The patient is a 62-year-old female who has a history of small bowel obstruction, underwent a recent surgery of peristomal hernia repair and revision of colostomy and underwent a new second mucous fistula. The patient is known to have rectal CA in the past, status post resection, followed by permanent colostomy. She was admitted because of altered mental status. At this time, the patient does not provide any reliable information except that she does not know anything and she does not know why she is in. She denied any chest pain. PAST MEDICAL HISTORY: Hypertension; diabetes mellitus; coronary artery disease, status post circumflex artery stenting; history of rectal carcinoma, status post resection and colostomy; history of DVT and pulmonary embolism. MEDICATIONS: Hydralazine 100 mg t.i.d., Brovana 15 mcg inhalations every 12 hours, Colace 100 mg t.i.d., Dilaudid 2 mg every 6 hours, aspirin 81 mg once a day, Imdur 60 mg once a day, Levemir 20 units subcutaneously h.s. daily, Lipitor 20 mg h.s. daily, meropenem 500 mg intravenously every 12 hours, Norvasc 10 mg once a day, Procardia XL 60 mg once a day, normal saline 50 mL an hour, labetalol 20 mg intravenously every 4 fours hours p.r.n., Xopenex inhaler every 6 hours p.r.n., Zyvox 600 mg p.o. twice a day. PHYSICAL EXAMINATION: GENERAL: The patient is on ventilation, nasal. She is confused, but does not appear to be in respiratory distress. VITAL SIGNS: Blood pressure 132/84, heart rate 75, temperature 97.4, respirations 18. HEENT: Pale conjunctivae. CHEST: Absent breath sounds on the bases. HEART: S1, S2 regular. ABDOMEN: Soft. EXTREMITIES: 2 to 3+ pitting edema. LABORATORY DATA: Today's SMA-7: Sodium 137, potassium 4.7, chloride 107, CO2 of 25, glucose 179, BUN 65, creatinine 2.5. ProBNP is 22,200, troponin 0.08. The patient's hemoglobin and hematocrit are 7.6 and 25.0. White count and platelet count are within normal limits. Today's INR is 1.38. PTT on admission was 118. Head CT scan without contrast on admission was a normal study. EKG on admission revealed normal sinus rhythm. Chest x-ray on admission revealed cardiomegaly with moderate CHF; however, bilateral alveolar infiltrates cannot be ruled out. An echocardiographic study performed on 04/15/2018 revealed normal ejection fraction. ASSESSMENT: 1. Altered mental status. 2. History of coronary artery disease, status post stenting to the circumflex artery many years ago. 3. Rule out underlying sepsis. 4. Anemia. 5. Chronic renal insufficiency. 6. Uncontrolled diabetes mellitus. 7. Coagulopathy. RECOMMENDATIONS: Continue hydralazine 100 mg t.i.d., aspirin 81 mg once a day, Lipitor 20 mg once a day, Imdur 60 mg once a day, IV meropenem at 500 mg every 12 hours, Norvasc 10 mg once a day, Procardia XL 60 mg once a day, labetalol 200 mg p.o. t.i.d., Zyvox 600 mg p.o. twice a day. Followup blood culture has been negative after 24 hours and 48 hours. Gildardo Barry MD
[2018-04-28 07:57] LABS: BASO # 0.01 K/mm3 (0.0-2.0); BASO % 0.1 % (0.0-3.0); EOS # 0.2 (0.0-0.7); EOS % 1.5 % (1.5-5.0); GRAN # 7.96 (1.4-6.5); GRAN % 81.6 % (50.0-68.0); HEMOGLOBIN 8.3 g/dL (12.0-16.0); LYMPH % 10.4 % (22.0-35.0); MEAN CELL VOLUME 88.7 fl (80.0-105.0); MEAN CORPUSCULAR HEMOGLOBIN 26.1 pg (25.0-35.0); MEAN CORPUSCULAR HGB CONC 29.4 g/dl (31.0-37.0); MEAN PLATELET VOLUME 10.7 fl (7.0-11.0); MONO # 0.6 (0.1-0.6); MONO % 6.4 % (1.0-6.0); RBC 3.18 10^6/uL (3.5-6.1); RED CELL DISTRIBUTION WIDTH 18.6 % (11.5-14.5); WHITE BLOOD COUNT 9.8 10^3/uL (4.5-11.0)
[2018-04-28 07:58] LABS: INR 1.17; PARTIAL THROMBOPLASTIN TIME 26.6 Seconds (25.1-36.5); PROTHROMBIN TIME 13.5 SECONDS (9.4-12.5)
[2018-04-28 08:26] LABS: ALB/GLOB RATIO 0.7 (1.1-1.8); ALBUMIN 2.4 g/dL (3.0-4.8)
[2018-04-28] MEDS: Insulin Reg-LOW-Coverage SC SCH ×4 (08:47→21:25)
[2018-04-28] MEDS: Pantoprazole 20 mg EC Tab PO SCH (08:47)
[2018-04-28] MEDS: Multivitamin Vitamin B Complex (Nephro-Vite) Tab PO SCH (08:47)
[2018-04-28] MEDS: Arformoterol 15 mcg/2 ml Inh Sol IH SCH ×2 (08:51→21:00)
[2018-04-28] MEDS: Silver Sulfadiazine 1% Cream (25 gm) TP SCH ×4 (10:50→19:09)
[2018-04-28] MEDS: MEROPENEM 500 MG in NS 500 MG/50 ML BAG IVPB SCH ×2 (10:50→21:16)
[2018-04-28] MEDS: Sodium Chloride 0.9% 1,000 ML IV SCH ×2 (11:19→23:15)
[2018-04-28] MEDS ORDERED: Barium Sulfate Susp 2.1% w/v, 2.0% w/w 450 mL Bottle PO ONE (11:43)
--- NOTE | 2018-04-28 13:16 | PN ---
DATE: 04/28/2018 SUBJECTIVE: The patient is in bed in no acute distress, nontoxic. The patient still with some abdominal pain. PHYSICAL EXAMINATION: VITAL SIGNS: Temperature is 98, blood pressure is 131/40, respiratory rate of 20, heart rate of 86. HEENT: Examination of HEENT is unremarkable. NECK: Supple. LUNGS: Have decreased breath sounds. HEART: Normal S1, S2. ABDOMEN: Soft. The abdominal wound erythema is resolving, is much improved. LABORATORY DATA: Laboratory examination reveals the patient's white count is 9.8, hemoglobin of 8, platelets of 474. BUN is 66, creatinine is down to 2.5 and the urinalysis is noted. Microbiology reveals the blood cultures are negative. Urine cultures are negative. Review of orders reveals the patient to be on meropenem, adjusted for renal failure and Zyvox. ASSESSMENT/PLAN This is a 62-year-old female with a history of small bowel obstruction, recent abdominal surgery, hypertension, hyperlipidemia, diabetes, sleep apnea, chronic obstructive lung disease, congestive heart failure who was at the senior care, admitted with weakness and change of mental status, continues to have abdominal discomfort, admitted on this admission with acute diastolic congestive heart failure on top of chronic congestive heart failure with abdominal wall cellulitis on the surgical site with acute kidney injury on top of chronic kidney failure. We will order a CT scan of the abdomen and pelvis with p.o. contrast only and today is day #3 of Zyvox and meropenem. The patient is improved somewhat, mental status is improved. She does have super morbid obesity with a BMI of 51. We will order a CT scan NPO. Lawrence Cheek MD
--- NOTE | 2018-04-28 16:27 | PN ---
DATE: 04/28/2018 PULMONARY PROGRESS NOTE REFERRING PHYSICIAN: Elroy Florian MD. SUBJECTIVE: The patient is lying in the bed, sleepy, arousable. Night was unremarkable. Not very compliant with the BiPAP. Feels better. Still has generalized aches and pains and sleepy and tired during the daytime. No hemoptysis. No hematemesis. No hematuria. Colostomy bag working okay. Denying any significant leg swelling. OBJECTIVE: VITAL SIGNS: Temperature is 98, heart rate is 88, respiratory rate is 20, blood pressure 125/50, pulse ox 100% on nasal cannula. HEENT: Moist mucous membrane. Crowded airway. Mallampati score is 4. Short thick neck. LUNGS: Have a fair airflow with few rhonchi. HEART: S1 and S2. ABDOMEN: Soft. Incision site looks okay. Mild erythema at suture line. Colostomy working well. EXTREMITIES: Not much edema. NEUROLOGICAL: Sleepy, arousable. Follows simple command. MEDICATIONS: She is on hydralazine 100 mg three times a day, Brovana inhaled two times a day, Colace 100 mg three times a day, Dilaudid 2 mg every 6 hours p.r.n., vitamin D 1 capsule every 7 days, Ecotrin 81 mg daily, ferrous gluconate 325 mg three times a day, isosorbide mononitrate 60 mg daily, Levemir 20 units subcu at bedtime, Lipitor 20 mg at bedtime, meropenem 1 g IV every 12 hours, simethicone 80 mg , Nephro vitamins daily, Norvasc 10 mg daily, Procardia XL 60 mg daily, Protonix 40 mg daily, IV fluid normal saline 50 mL/hour, labetalol 200 mg three times a day, Xopenex inhaled every 6 hours, Zyvox 600 mg twice a day. LABORATORY DATA: Shows hemoglobin 8.3, hematocrit 28.2, WBC 9.8, platelet count is 474. INR 1.17, PTT is 27. Sodium 137, potassium 4.3, chloride 108, bicarbonate 22, BUN 66, creatinine 2.5, glucose 176, calcium 8, AST 19, ALT 19, alk phos is 132, albumin is 2.4, T4 free is 7, TSH 1.08. Microbiology: Blood culture, urine culture, there is no growth. IMPRESSION AND PLAN: Status post small bowel obstruction with hernia requiring laparotomy and hernia repair, relocation of colostomy, obstructive sleep apnea syndrome, hypoventilation syndrome, history of pulmonary embolism, deep venous thrombosis, morbid obesity, diabetes, hypertension, being treated with healthcare-associated sepsis. Pulmonary point of view, keep head at 45 degrees. Encourage BiPAP use. Bronchodilator. Gastric prophylaxis, deep venous thrombosis prophylaxis. Antibiotics as per Infectious Diseases. Pressure ulcer precaution. May consider starting on daytime stimulant. We will get cortisol level in the morning to assure there is no adrenal insufficiency. Thank you and we will follow with you. Pamela Ayala MD
--- NOTE | 2018-04-28 17:12 | PN ---
DATE: 04/26/2018 SUBJECTIVE: A 62-year-old female. The patient clinically is stable, better. She has no dyspnea. No pain. No vomiting. Tolerating diet very well. No other new complaints. Just generally feels very weak and intermittently, but less lethargic than before. PHYSICAL EXAMINATION: On 04/26/2018, her physical examination is as follow; VITAL SIGNS: Her temperature is 98.7, heart rate 81, blood pressure 148/66, respirations 18, sat 98% on 30% FiO2. HEAD AND NECK: Normal. No JVD. No thyromegaly. CHEST: Clear bilateral. CARDIAC: First sound and second sound normal. ABDOMEN: Soft, obese, nontender. Colostomy site is clean, need to be changed. EXTREMITIES: There is edema above ankle, pitting edema. NEUROLOGIC: She moves all her extremities. She is alert, awake, oriented x3. LABORATORY STUDY: Her white count 7.6, hemoglobin 7.6, hematocrit 25, platelets 419. Chemistry is as follows; sodium 136, potassium 4.5, chloride 106, bicarb 24, BUN 66, creatinine 2.9, blood sugar 162, calcium 7.8, phosphorus 5.5, magnesium 1.7. The patient has normal urinalysis. She had a urine culture, which was negative and blood culture, which was negative. IMPRESSION AND PLAN: 1. Generalized weakness, etiology unclear. We concerned about sepsis, dehydrations, medication side effects. Right now, we discontinued the clonidine patch. We changed it to labetalol 200 t.i.d. and 20 mg IV p.r.n. She is doing very well hemodynamically. Continue also on Norvasc 10 and continue hydralazine 100 t.i.d. She is doing well. 2. Anemia. The patient has chronic anemia, probably iron deficiency or anemia of chronic disease. The patient get a consult with Dr. Zuhair Herrera, with Dr. Faye will see the patient for hemoglobin. We will repeat labs in the morning. 3. Possible sepsis. Still waiting for more evaluations. Currently, on meropenem and Zyvox. The patient was in the hospital and the long-term, so continue current medications for now. 4. Clinically get better, stabilize. 5. Coronary artery disease, right-sided heart failure, pulmonary hypertension. Continue Imdur. 6. Insulin-dependent diabetes. Continue Levemir 20 units subcutaneous plus insulin coverage. 7. The patient is morbidly obese. She has obstructive sleep apnea, chronic obstructive pulmonary disease. Continue inhaled bronchodilators. Continue BiPAP most of the time, which will help clinically. I appreciate Dr. Ayala seeing the patient. The patient was put on Nuvigil 150 once a day, which could help her mental status and we will follow up on that. The patient's blood gas, usually pH is 7.3, pCO2 of 46, pO2 of 71. We will continue current treatment for now. The patient will need a physical therapy, rehab again after medically stabilized and clinically stabilized. Continue current therapy for now. Elroy Florian MD
--- NOTE | 2018-04-28 17:58 | PN ---
DATE: 04/28/2018 This is [facility] visit on telemetry floor. For Dr. Faye. SUBJECTIVE: The patient is a 62-year-old female seen lying somnolent but arousable in bed with family at the bedside. Known history of rectal cancer, unresectable with colostomy revision recently with hernia repair with the patient now still sluggish as per her family member with BiPAP recommended, but the patient being noncompliant. She also has a history of pulmonary embolism and DVT for which she is on anticoagulation, which was held due to abnormal PTT; however, upon repeating her values, the PTT is 26.2 with a peripheral stick needed to draw the labs. We will restart aspirin with consideration to restart Plavix in the near future as the patient has anemic indices, which has modestly improved from hemoglobin of 7.6 yesterday to hemoglobin 8.3 today, again possibly from the port versus peripheral stick. At present, she is in no acute distress with Dilaudid 2 mg IV every 6 being given for moderate pain. We will change this to 1 mg every 6 for severe pain as this may also be contributing to her mental status compromise. OBJECTIVE PHYSICAL EXAMINATION: VITAL SIGNS: Temperature 98.3, pulse 88, respirations 20, blood pressure 125/50, pulse ox of 100%. HEENT: Tongue is moist. NECK: Supple. HEART: Regular rate. LUNGS: Decreased breath sounds. Occasional rhonchi. ABDOMEN: Obese, soft with dressing dry and intact with colostomy bag viable. EXTREMITIES: Chronic +1 edema of the feet and hands. NEUROLOGIC: Lethargic, but arousable. SKIN: Warm and dry. LABORATORY DATA: The patient's labs were done. White blood cell count of 9.8; hemoglobin today of 8.3, up from 7.6 yesterday; hematocrit of 28.2; platelet count of 474,000 with a chem metabolic panel showing a BUN of 66, creatinine of 2.5, alk phos of 132. INR today of 1.17 with a PTT of 26.6 with a lab error for a 118 PTT value from 04/25/2018. The patient has no growth from blood cultures or urine culture. ASSESSMENT: The assessment for this patient is that of mental status change, possibly metabolic; chronic kidney disease; diabetes mellitus; hypercoagulable state; history of pulmonary embolism; deep venous thrombosis; status post revision of colostomy with hernia repair; morbid obesity; history of [id number] myocardial infarction; pulmonary hypertension; history of rectal carcinoma with colostomy; history of vena caval filter placement; abnormal PTT evaluated; also anemic indices. PLAN: The plan for this patient is to continue present medical regimen. We will restart aspirin once a day with consideration to restart her Eliquis after her labs are drawn in the morning as there are 2 units of packed red blood cells typed and crossed and on hold with consideration for transfusion should her hemoglobin drop any further. Yesterday's value again was 7.6, today's is 8.3 with the patient now taking iron tablet 3 times a day as per Dr. Florian. With restart of Eliquis as indicated. We will also monitor kidney function as per Dr. Dawn. There was also a consideration that the patient had been on Catapres patch. This also may have affected her mental changes. We will monitor clinically and with labs. This is a complex patient with a comprehensive medically necessary and appropriate visit carried out in excess of 30 minutes with the patient's family at the bedside and questions were answered to their satisfaction. Zuhair Herrera MD
[2018-04-28] MEDS: NIFEdipine 60 mg ER Tab PO SCH (19:10)
--- NOTE | 2018-04-28 19:44 | PN ---
DATE: 04/28/2018 SUBJECTIVE: The patient is still lethargic and confused. She does not appear to be in respiratory distress. PHYSICAL EXAMINATION: VITAL SIGNS: Blood pressure 121/42, heart rate 84, temperature 98.4 and respirations 20. HEENT: Pale conjunctivae. CHEST: Diminished air entry bilaterally. HEART: S1 and S2 regular. EXTREMITIES: 2+ pitting edema. LABORATORY DATA: Hemoglobin and hematocrit 8.3 and 28.2, white count 9.8, platelet count 474,000. Today's BUN and creatinine 66 and 2.5, glucose 176. ASSESSMENT: 1. Altered mental status. 2. Rule out underlying sepsis. 3. Chronic renal insufficiency. 4. Uncontrolled diabetes mellitus. 5. Anemia. 6. Coronary artery disease with history of coronary artery stenting to circumflex artery. RECOMMENDATIONS: Continue hydralazine 100 mg three times a day, aspirin 81 mg once a day, ferrous gluconate one tablet three times a day, Imdur 60 mg once daily, Lipitor 20 mg once a day, IV meropenem 500 mg every 12 hours, Norvasc 10 mg once a day, XL 60 mg once a day, Protonix 20 mg once a day, labetalol 200 mg three time a day, Zyvox 600 mg by mouth twice a day. Gildardo Barry MD
[2018-04-28] MEDS: Insulin Detemir 100 units/ml Vial (Levemir) SC SCH (21:27)
[2018-04-29 07:21] LABS: BASO # 0.02 K/mm3 (0.0-2.0); BASO % 0.2 % (0.0-3.0); EOS # 0.2 (0.0-0.7); EOS % 2.2 % (1.5-5.0); GRAN # 6.51 (1.4-6.5); GRAN % 73.9 % (50.0-68.0); HEMOGLOBIN 7.9 g/dL (12.0-16.0); LYMPH # 1.2 (1.2-3.4); MEAN CELL VOLUME 89.2 fl (80.0-105.0); MEAN CORPUSCULAR HEMOGLOBIN 26.7 pg (25.0-35.0); MEAN CORPUSCULAR HGB CONC 29.9 g/dl (31.0-37.0); MEAN PLATELET VOLUME 10.7 fl (7.0-11.0); MONO # 0.9 (0.1-0.6); MONO % 9.7 % (1.0-6.0); RBC 2.96 10^6/uL (3.5-6.1); RED CELL DISTRIBUTION WIDTH 18.7 % (11.5-14.5); WHITE BLOOD COUNT 8.8 10^3/uL (4.5-11.0)
--- NOTE | 2018-04-29 07:34 | PN ---
DATE: 04/27/2018 SUBJECTIVE: The patient is in bed, in no acute distress, nontoxic. PHYSICAL EXAMINATION: VITAL SIGNS: Temperature is 98, blood pressure is 130/50, respiratory rate of 18. HEENT: Unremarkable. NECK: Supple. LUNGS: Have decreased breath sounds. HEART: Normal S1, S2. ABDOMEN: Soft, nontender. LABORATORY EXAMINATION: Reveals a white count 11,800, hemoglobin of 9, platelets of 523,000. Chemistries are noted. BUN of 66, creatinine of 2.9 and procalcitonin is 0.43 and microbiology reveals the blood cultures are negative. Urine cultures are negative. CT scan of the head is negative. ASSESSMENT AND PLAN: A 62-year-old female with a history of small bowel obstruction, recent hospitalization, recent abdominal surgery, hypertension, hyperlipidemia, diabetes, sleep apnea, chronic obstructive lung disease, congestive heart failure, retirement patient admitted with weakness. Denies any chest pain or abdominal pain and intermittent abdominal pain and mild temperature, history of rectal cancer, gastrointestinal bleed and gastroesophageal reflux disease and with a negative hepatitis profile, was admitted and this admission with acute diastolic congestive heart failure on top of chronic congestive heart failure and abdominal wall cellulitis. The site of the surgery with acute kidney injury on top of chronic renal failure, on Zyvox and meropenem with day #2 of antibiotics of Zyvox, meropenem and abdominal wound. It is slightly less for erythematous. White count of 11,800 and creatinine is down to 2.3. The cultures reveals the blood cultures are negative and urine cultures negative and the patient's chest x-ray is reported to be negative, consider getting a CT scan of the abdomen and pelvis. The patient does have a right-sided Port-A-Cath. Dr. Lake's surgical consultation is reviewed. The patient is 62-year-old, peristomal hernia repair, small bowel obstruction with revision of the colostomy, creation of the second superior mucous fistula. was done. The patient had a CT scan of the abdomen and pelvis. We will check on culture results and wound. Lawrence Cheek MD [facility] # [id number]
[2018-04-29 07:39] LABS: ALB/GLOB RATIO 0.7 (1.1-1.8); ALBUMIN 2.2 g/dL (3.0-4.8); CALCIUM 7.9 mg/dL (8.4-10.5)
[2018-04-29] MEDS: Arformoterol 15 mcg/2 ml Inh Sol IH SCH ×2 (07:51→19:58)
--- NOTE | 2018-04-29 08:15 | CP.PCM.PN ---
Subjective - Date & Time of Evaluation Date of Evaluation: 04/29/18 Time of Evaluation: 06:40 - Subjective Subjective: Awake, alert, no distress Reason for consultation and follow up: Cardiac evaluation of coronary artery disease, admitted for altered mental status Seen and examined by me and Dr. Guerrero Objective - Vital Signs/Intake and Output Vital Signs (last 24 hours): Temp Pulse Resp BP Pulse Ox 98.0 F 91 H 20 130/48 L 98 04/29/18 06:00 04/29/18 06:00 04/29/18 06:00 04/29/18 06:00 04/29/18 06:00 Intake and Output: 04/29/18 04/29/18 06:59 18:59 Intake Total 1520 Output Total 400 Balance 1120 - Medications Medications: Current Medications Amlodipine Besylate (Norvasc) 10 mg PO DAILY [facility] Last Admin: 04/28/18 10:48 Dose: 10 mg Arformoterol Tartrate (Brovana) 15 mcg IH [id number] [facility] Last Admin: 04/29/18 07:51 Dose: 15 mcg Armodafinil (Nuvigil 150 Mg Tab) 150 mg PO DAILY [facility] Aspirin (Ecotrin) 81 mg PO DAILY [facility] Last Admin: 04/27/18 10:30 Dose: 81 mg Atorvastatin Calcium (Lipitor) 20 mg PO HS [facility] Last Admin: 04/28/18 21:16 Dose: 20 mg Docusate Sodium (Colace) 100 mg PO TID [facility] Last Admin: 04/28/18 19:00 Dose: 100 mg Ergocalciferol (Drisdol 50,000 Intl Units Cap) 1 cap PO Q7D [facility] Last Admin: 04/26/18 10:23 Dose: 1 cap Ferrous Gluconate (Fergon) 324 mg PO TID [facility] Last Admin: 04/28/18 19:00 Dose: 324 mg Hydralazine HCl (Apresoline) 100 mg PO TID [facility] Last Admin: 04/28/18 19:00 Dose: 100 mg Hydromorphone HCl (Dilaudid) 1 mg PO Q6H PRN PRN Reason: Pain, severe (8-10) Last Admin: 04/29/18 03:09 Dose: 1 mg Meropenem/Sodium Chloride (Merrem Iv 500 Mg/Ns 50 Ml) 500 mg in 50 mls @ 100 mls/hr IVPB Q12 [facility]; Protocol Stop: 05/05/18 10:01 Last Admin: 04/28/18 21:16 Dose: 100 mls/hr Sodium Chloride (Sodium Chloride 0.9%) 1,000 mls @ 50 mls/hr IV .Q20H [facility] Last Admin: 04/28/18 23:15 Dose: Not Given Insulin Detemir (Levemir) 20 unit SC HS [facility] Last Admin: 04/28/18 21:27 Dose: Not Given Insulin Human Regular (Humulin R Low) 0 units SC ACHS [facility]; Protocol Last Admin: 04/28/18 21:25 Dose: Not Given Isosorbide Mononitrate (Imdur Er) 60 mg PO DAILY [facility] Last Admin: 04/28/18 10:48 Dose: 60 mg Labetalol HCl (Trandate) 200 mg PO TID [facility] Last Admin: 04/28/18 19:09 Dose: Not Given Labetalol HCl (Trandate) 20 mg IV Q4 PRN PRN Reason: Other Levalbuterol HCl (Xopenex) 1.25 mg IH [id number] PRN PRN Reason: Shortness of Breath Last Admin: 04/27/18 20:01 Dose: 1.25 mg Linezolid (Zyvox) 600 mg PO BID [facility]; Protocol Stop: 05/05/18 10:01 Last Admin: 04/28/18 19:00 Dose: 600 mg Nifedipine (Procardia Xl) 60 mg PO QPM [facility] Last Admin: 04/28/18 19:10 Dose: Not Given Pantoprazole Sodium (Protonix Ec Tab) 20 mg PO ACB [facility] Last Admin: 04/28/18 08:47 Dose: 20 mg Silver Sulfadiazine (Silvadene 1% 25 Gm) 0 gm TP BID [facility] Last Admin: 04/28/18 19:08 Dose: 1 gm Silver Sulfadiazine (Silvadene 1% 25 Gm) 0 gm TP BID [facility] Last Admin: 04/28/18 19:09 Dose: Not Given Simethicone (Mylicon Chew Tab) 80 mg PO PCHS PRN PRN Reason: GI distress Last Admin: 04/27/18 23:16 Dose: 80 mg Vitamin B Complex/Vit C/Folic Acid (Nephro-[place]) 1 tab PO 0800 [facility] Last Admin: 04/28/18 08:47 Dose: 1 tab - Labs Labs: 04/29/18 07:00 04/29/18 07:00 PT 13.5 SECONDS (9.4-12.5) H 04/28/18 07:00 INR 1.17 04/28/18 07:00 APTT 26.6 Seconds (25.1-36.5) 04/28/18 07:00 - Constitutional Appears: Non-toxic, No Acute Distress - Head Exam Head Exam: NORMAL INSPECTION, NORMOCEPHALIC - Eye Exam Eye Exam: Normal appearance Pupil Exam: NORMAL ACCOMODATION - ENT Exam ENT Exam: Mucous Membranes Dry - Respiratory Exam Respiratory Exam: Decreased Breath Sounds, Clear to Ausculation Bilateral, NORMAL BREATHING PATTERN - Cardiovascular Exam Cardiovascular Exam: REGULAR RHYTHM, +S1, +S2 Additional comments: Telemetry 70's NSR - GI/Abdominal Exam GI & Abdominal Exam: Soft, Normal Bowel Sounds Additional comments: abdominal incision with donita colostomy - Extremities Exam Additional comments: 4+edema - Neurological Exam Neurological Exam: Alert, Awake - Psychiatric Exam Psychiatric exam: Normal Affect, Normal Mood - Skin Skin Exam: Normal Color, Warm Assessment and Plan - Assessment and Plan (Free Text) Assessment: A 62 year old morbidly obese female who was brought to the ER due to altered mental status. Recently was discharged from [facility] [place] due to small bowel obstruction with resection by Dr. Mckeon. Patient is known to have rectal cancer in the past. with colostomy. History of coronary artery disease with stent of c ircumflex,hypertension, HLD, DM, Sleep Apnea, COPD, CHF,history of DVT and PE. CT of head unremarkable, EKG showed NSR, Chest X ray showed moderate CHF however bilateral infiltrate. Recent ECHO LVEF normal.Cardiac status stable. Plan: Denies chest pain or shortness of breath Awake, alert Heart rate controlled Blood pressure controlled Continue current treatment Continue current medications Will discontinue telemetry Will follow up Plan and treatment discussed with Dr. Guerrero
[2018-04-29] MEDS: Pantoprazole 20 mg EC Tab PO SCH (08:39)
[2018-04-29] MEDS: Insulin Reg-LOW-Coverage SC SCH ×4 (08:39→21:52)
--- NOTE | 2018-04-29 08:47 | CP.PCM.PN ---
Subjective - Date & Time of Evaluation Date of Evaluation: 04/29/18 Time of Evaluation: 09:45 - Subjective Subjective: Luan De Paz-Internal Medicine Resident- Hematology Oncology Progress Note Subjective: Patient seen and examined at bedside. No acute events overnight. Patient is lethargic but can be aroused. Admits to baseline back pain. Offers no new complaints at this time. Denies fever, chills, chest pain, nausea/vomiting. 12 Point ROS negative except as indicated in HPI Physical Examination: - Constitutional Appears: Non-toxic, No Acute Distress - Head Exam Head Exam: ATRAUMATIC, NORMOCEPHALIC - Eye Exam Eye Exam: EOMI, Normal appearance - ENT Exam ENT Exam: Mucous Membranes Moist - Neck Exam Neck exam: Positive for: Full Rom, Normal Inspection. Negative for: Lymphadenopathy, Meningismus, Tenderness, Thyromegaly - Respiratory Exam Respiratory Exam: Diminished breath sounds bilateral lower lobes. absent: Accessory Muscle Use, Decreased Breath Sounds, Rales, Rhonchi, Wheezes, Respiratory Distress - Cardiovascular Exam Cardiovascular Exam: REGULAR RHYTHM, RRR, +S1, +S2. absent: Bradycardia, Tachycardia - GI/Abdominal Exam GI & Abdominal Exam: obese, soft, ostomy right mid abdomen - Extremities Exam Extremities exam: negative for clubbing, cyanosis - Neurological Exam Neurological exam: Awake, Alert, Oriented x3 - Psychiatric Exam Psychiatric exam: Normal Affect, Normal Mood - Skin Skin Exam: Dry, Intact, Warm Assessment and Plan: Patient is a 62 year old female with a past medical history significant for rectal adenocarcinoma s/p [employer]INE[employer] and loop colostomy, CAD s/p GLORIA, CHF, DM2, HTN, CKD, and DVT/PE on Eliquis who was admitted for evaluation and treatment of altered mental status. Heme/onc is consulted for management of elevated ptt. Elevated PTT - resolved - likely false reading x 1 Rectal Adenocarcinoma - pain control- recommend Dilaudid over morphine as half life is shorter and is hepatically metabolized Anemia - transfuse 2 units pRBCS - goal Hgb 10 in light of cardaic issues Dispo: - Unsafe for discharge from heme/onc perspective at this time Patient case discussed with and plan approved by attending physician, Dr. Faye. Objective - Vital Signs/Intake and Output Vital Signs (last 24 hours): Temp Pulse Resp BP Pulse Ox 98.0 F 91 H 20 130/48 L 98 04/29/18 06:00 04/29/18 06:00 04/29/18 06:00 04/29/18 06:00 04/29/18 06:00 Intake and Output: 04/29/18 04/29/18 06:59 18:59 Intake Total 1520 Output Total 400 Balance 1120 - Medications Medications: Current Medications Amlodipine Besylate (Norvasc) 10 mg PO DAILY [facility] Last Admin: 04/28/18 10:48 Dose: 10 mg Arformoterol Tartrate (Brovana) 15 mcg IH [id number] [facility] Last Admin: 04/29/18 07:51 Dose: 15 mcg Armodafinil (Nuvigil 150 Mg Tab) 150 mg PO DAILY [facility] Aspirin (Ecotrin) 81 mg PO DAILY [facility] Last Admin: 04/27/18 10:30 Dose: 81 mg Atorvastatin Calcium (Lipitor) 20 mg PO [facility] Last Admin: 04/28/18 21:16 Dose: 20 mg Docusate Sodium (Colace) 100 mg PO TID [facility] Last Admin: 04/28/18 19:00 Dose: 100 mg Ergocalciferol (Drisdol 50,000 Intl Units Cap) 1 cap PO Q7D [facility] Last Admin: 04/26/18 10:23 Dose: 1 cap Ferrous Gluconate (Fergon) 324 mg PO TID [facility] Last Admin: 04/28/18 19:00 Dose: 324 mg Hydralazine HCl (Apresoline) 100 mg PO TID [facility] Last Admin: 04/28/18 19:00 Dose: 100 mg Hydromorphone HCl (Dilaudid) 1 mg PO Q6H PRN PRN Reason: Pain, severe (8-10) Last Admin: 04/29/18 03:09 Dose: 1 mg Meropenem/Sodium Chloride (Merrem Iv 500 Mg/Ns 50 Ml) 500 mg in 50 mls @ 100 mls/hr IVPB Q12 [facility]; Protocol Stop: 05/05/18 10:01 Last Admin: 04/28/18 21:16 Dose: 100 mls/hr Sodium Chloride (Sodium Chloride 0.9%) 1,000 mls @ 50 mls/hr IV .Q20H [facility] Last Admin: 04/28/18 23:15 Dose: Not Given Insulin Detemir (Levemir) 20 unit SC [facility] Last Admin: 04/28/18 21:27 Dose: Not Given Insulin Human Regular (Humulin R Low) 0 units SC ACHS [facility]; Protocol Last Admin: 04/29/18 08:39 Dose: 1 unit Isosorbide Mononitrate (Imdur Er) 60 mg PO DAILY [facility] Last Admin: 04/28/18 10:48 Dose: 60 mg Labetalol HCl (Trandate) 200 mg PO TID [facility] Last Admin: 04/28/18 19:09 Dose: Not Given Labetalol HCl (Trandate) 20 mg IV Q4 PRN PRN Reason: Other Levalbuterol HCl (Xopenex) 1.25 mg IH [id number] PRN PRN Reason: Shortness of Breath Last Admin: 04/27/18 20:01 Dose: 1.25 mg Linezolid (Zyvox) 600 mg PO BID [facility]; Protocol Stop: 05/05/18 10:01 Last Admin: 04/28/18 19:00 Dose: 600 mg Nifedipine (Procardia Xl) 60 mg PO QPM [facility] Last Admin: 04/28/18 19:10 Dose: Not Given Pantoprazole Sodium (Protonix Ec Tab) 20 mg PO ACB [facility] Last Admin: 04/29/18 08:39 Dose: 20 mg Silver Sulfadiazine (Silvadene 1% 25 Gm) 0 gm TP BID [facility] Last Admin: 04/28/18 19:08 Dose: 1 gm Silver Sulfadiazine (Silvadene 1% 25 Gm) 0 gm TP BID [facility] Last Admin: 04/28/18 19:09 Dose: Not Given Simethicone (Mylicon Chew Tab) 80 mg PO PCHS PRN PRN Reason: GI distress Last Admin: 04/27/18 23:16 Dose: 80 mg Vitamin B Complex/Vit C/Folic Acid (Nephro-Holland) 1 tab PO 0800 [facility] Last Admin: 04/28/18 08:47 Dose: 1 tab - Labs Labs: 04/29/18 07:00 04/29/18 07:00 PT 13.5 SECONDS (9.4-12.5) H 04/28/18 07:00 INR 1.17 04/28/18 07:00 APTT 26.6 Seconds (25.1-36.5) 04/28/18 07:00
[2018-04-29] MEDS: MEROPENEM 500 MG in NS 500 MG/50 ML BAG IVPB SCH ×2 (09:50→21:23)
[2018-04-29] MEDS: Multivitamin Vitamin B Complex (Nephro-Vite) Tab PO SCH (09:53)
[2018-04-29] MEDS: Silver Sulfadiazine 1% Cream (25 gm) TP SCH ×4 (10:00→17:46)
--- NOTE | 2018-04-29 11:27 | CT ---
Date of service: 04/28/2018 PROCEDURE: CT Abdomen and Pelvis without intravenous contrast HISTORY: post abd sx COMPARISON: TECHNIQUE: Technique. Contrast dose: Radiation dose: Total exam DLP = 1184.53 mGy-cm. This CT exam was performed using one or more of the following dose reduction techniques: Automated exposure control, adjustment of the mA and/or kV according to patient size, and/or use of iterative reconstruction technique. FINDINGS: LOWER THORAX: Cardiomegaly. LIVER: Unremarkable. No gross lesion or ductal dilatation. GALLBLADDER AND BILE DUCTS: Unremarkable. PANCREAS: Unremarkable. No gross lesion or ductal dilatation. SPLEEN: Unremarkable. ADRENALS: 2 centimeter left nodule. KIDNEYS AND URETERS: Unremarkable. No hydronephrosis. No solid mass. VASCULATURE: Unremarkable. No aortic aneurysm. Atherosclerotic aortic calcifications. Inferior vena cava filter in place. BOWEL: Unremarkable. No obstruction. No gross mural thickening. APPENDIX: Unremarkable. Normal appendix. PERITONEUM: Unremarkable. No free fluid. No free air. LYMPH NODES: Unremarkable. No enlarged lymph nodes. BLADDER: Unremarkable. REPRODUCTIVE: Hysterectomy. BONES: No acute fracture. OTHER FINDINGS: Multiple ventral wall hernias in addition to a wide-mouth umbilical hernia. Inflammatory changes in the extra abdominal subcutaneous soft tissues large portion of the extra abdominal soft tissues beyond the field view. Questionable perirectal inflammatory changes. IMPRESSION: Multiple ventral wall hernias in addition to a wide-mouth umbilical hernia. Inflammatory changes in the extra abdominal subcutaneous soft tissues large portion of the extra abdominal soft tissues beyond the field view. Questionable perirectal inflammatory changes.
--- NOTE | 2018-04-29 13:32 | CP.PCM.PN ---
Subjective - Date & Time of Evaluation Date of Evaluation: 04/29/18 Time of Evaluation: 10:25 - Subjective Subjective: Patient is resting comfortably in bed, no fevers, not in distress. Objective - Vital Signs/Intake and Output Vital Signs (last 24 hours): Temp Pulse Resp BP Pulse Ox 98.0 F 91 H 20 130/48 L 98 04/29/18 06:00 04/29/18 09:51 04/29/18 06:00 04/29/18 09:51 04/29/18 06:00 Intake and Output: 04/29/18 04/29/18 06:59 18:59 Intake Total 1520 Output Total 400 Balance 1120 - Medications Medications: Current Medications Amlodipine Besylate (Norvasc) 10 mg PO DAILY [facility] Last Admin: 04/29/18 09:51 Dose: 10 mg Arformoterol Tartrate (Brovana) 15 mcg IH [id number] [facility] Last Admin: 04/29/18 07:51 Dose: 15 mcg Armodafinil (Nuvigil 150 Mg Tab) 150 mg PO DAILY [facility] Last Admin: 04/29/18 09:50 Dose: 150 mg Aspirin (Ecotrin) 81 mg PO DAILY [facility] Last Admin: 04/29/18 09:51 Dose: 81 mg Atorvastatin Calcium (Lipitor) 20 mg PO HS [facility] Last Admin: 04/28/18 21:16 Dose: 20 mg Docusate Sodium (Colace) 100 mg PO TID [facility] Last Admin: 04/29/18 09:50 Dose: 100 mg Ergocalciferol (Drisdol 50,000 Intl Units Cap) 1 cap PO Q7D [facility] Last Admin: 04/26/18 10:23 Dose: 1 cap Ferrous Gluconate (Fergon) 324 mg PO TID [facility] Last Admin: 04/29/18 09:50 Dose: 324 mg Hydralazine HCl (Apresoline) 100 mg PO TID [facility] Last Admin: 04/29/18 09:51 Dose: 100 mg Hydromorphone HCl (Dilaudid) 1 mg PO Q6H PRN PRN Reason: Pain, severe (8-10) Last Admin: 04/29/18 03:09 Dose: 1 mg Meropenem/Sodium Chloride (Merrem Iv 500 Mg/Ns 50 Ml) 500 mg in 50 mls @ 100 mls/hr IVPB Q12 [facility]; Protocol Stop: 05/05/18 10:01 Last Admin: 04/29/18 09:50 Dose: 100 mls/hr Sodium Chloride (Sodium Chloride 0.9%) 1,000 mls @ 50 mls/hr IV .Q20H [facility] Last Admin: 04/28/18 23:15 Dose: Not Given Insulin Detemir (Levemir) 20 unit SC HS [facility] Last Admin: 04/28/18 21:27 Dose: Not Given Insulin Human Regular (Humulin R Low) 0 units SC ACHS [facility]; Protocol Last Admin: 04/29/18 08:39 Dose: 1 unit Isosorbide Mononitrate (Imdur Er) 60 mg PO DAILY [facility] Last Admin: 04/29/18 09:50 Dose: 60 mg Labetalol HCl (Trandate) 200 mg PO TID [facility] Last Admin: 04/29/18 09:51 Dose: 200 mg Labetalol HCl (Trandate) 20 mg IV Q4 PRN PRN Reason: Other Levalbuterol HCl (Xopenex) 1.25 mg IH [id number] PRN PRN Reason: Shortness of Breath Last Admin: 04/27/18 20:01 Dose: 1.25 mg Linezolid (Zyvox) 600 mg PO BID [facility]; Protocol Stop: 05/05/18 10:01 Last Admin: 04/29/18 09:51 Dose: 600 mg Nifedipine (Procardia Xl) 60 mg PO QPM [facility] Last Admin: 04/28/18 19:10 Dose: Not Given Pantoprazole Sodium (Protonix Ec Tab) 20 mg PO ACB [facility] Last Admin: 04/29/18 08:39 Dose: 20 mg Silver Sulfadiazine (Silvadene 1% 25 Gm) 0 gm TP BID [facility] Last Admin: 04/28/18 19:08 Dose: 1 gm Silver Sulfadiazine (Silvadene 1% 25 Gm) 0 gm TP BID [facility] Last Admin: 04/28/18 19:09 Dose: Not Given Simethicone (Mylicon Chew Tab) 80 mg PO PCHS PRN PRN Reason: GI distress Last Admin: 04/27/18 23:16 Dose: 80 mg Vitamin B Complex/Vit C/Folic Acid (Nephro-Holland) 1 tab PO 0800 [facility] Last Admin: 04/29/18 09:53 Dose: 1 tab - Labs Labs: 04/29/18 07:00 04/29/18 07:00 PT 13.5 SECONDS (9.4-12.5) H 04/28/18 07:00 INR 1.17 04/28/18 07:00 APTT 26.6 Seconds (25.1-36.5) 04/28/18 07:00 - Constitutional Appears: Chronically Ill - Head Exam Head Exam: NORMAL INSPECTION - Respiratory Exam Respiratory Exam: Decreased Breath Sounds - Cardiovascular Exam Cardiovascular Exam: +S1, +S2 - GI/Abdominal Exam GI & Abdominal Exam: Soft. absent: Tenderness Additional comments: dressings in place Assessment and Plan - Assessment and Plan (Free Text) Plan: Assessment abdominal wall cellulitis S/P small bowel obstruction in this patient with ventral wall hernia, S/P ventral incarcerated hernia repair, adhesiolysis and revision of colostomy S/P acute coronary syndrome with NSTEMI COPD history of VRE UTI history of severe sepsis secondary to left medial thigh abscess, growing Proteus, S/P incision and drainage DM HTN CAD Unresectable rectal cancer S/P chemotherapy and radiation therapy S/P colostomy S/P Port-a-cath placement morbid obesity with BMI 50 obstructive sleep apnea history of pulmonary embolism S/P IVC filter placement Plan continue Zyvox and Merrem day 4 and will continue to monitor clinically
--- NOTE | 2018-04-29 13:54 | CP.PCM.PN ---
Subjective - Date & Time of Evaluation Date of Evaluation: 04/29/18 Time of Evaluation: 13:48 - Subjective Subjective: Nephrology Consultation Note: Assessment: Stable altered mental status: improved SBO s/p ex lap Acute Kidney Injury (N17.9) likely pre-renal state left adrenal adenoma, Rt renal hyperdense cyst chronic hypercapnic respi failure Diabetic chronic Kidney Disease (E11.22) Hypertensive Chronic Kidney Disease (I12.9) Chronic Kidney Disease (N18.3) Stage 3 with 2.4 gm proteinuria (R80.9) likely due to DM/HTN/Obesity Anemia Vit D def morbid obesity, CAD s/p stent, COPD/SUMMER, rectal ca s/p colostomy Plan No acute need for renal replacement therapy at this time. HTN control on multiple meds; norvasc hydralazine labetalol nifedipine and imdur. hold ARB due to SHELBI Monitor Input/Output, daily weights and renal function with basic metabolic panel pulmonary ID heme and surgery following PRBC as needed. 2 units [id number]. d/w heme and okay to use KAVYA from heme perspective. will order aransep 125 mcg (04/29/18) supplement lytes as needed dc ivf. lasix as needed. Adrenal adenoma work up with plasma renin/aldosterone, plasma metanephrine NEGATIVE. outpt 1 mg dexa suppression test repeat renal sono in 6 months to assess her Rt renal cyst Dose meds/antibiotics for reduced GFR. Avoid fleets enema/magnesium based laxatives. Avoid nephrotoxins/NSAIDs/ iodinated contrast (unless needed emergently) Glycemic control Further work up/management as per primary team Thanks for allowing me to participate in care of your patient. Will follow patient with you. Please call if any Qs. had d/w team Dr Dae Dawn Office: [phone] Chief Complaint;AMS Reason for consult: Acute Kidney Injury, CKD 3 HPI: Pt is a 62 F with hx of diabetes Mellitus (15 years), hypertension (years), CKD 3 with baseline cr 1.2-1.3 with AKIs, morbid obesity, CAD s/p stent, COPD/SUMMER on CPAP, rectal ca s/p colostomy recently admitted for SBP s/p ex-lap, seen for SHELBI and HTN urgency came back with complaints of AMS and fever. renal consult for CKD and SHELBI management. pt has no urine complaints. Denies OTC/herbal meds or NSAIDs No recent iodinated contrast exposure. No obvious episodes of low BP. ROS: pt feels same. denies CP/SOB Physical Examination: General Appearance: comfortable,morbidly obese. ill appearing Vitals reviewed and noted as below Head; Atraumatic, normocephalic ENT: dry mucosa EYES: Pupils are equal, round and reactive to light accommodation. Eye muscles and extraocular movement intact. Sclera is anicteric. Neck; supple no lymphadenopathy, no thyromegaly or bruit Lungs: Normal respiratory rate/effort. Breath sounds bilateral equal, diminished at bases Heart: normal rate. s1s2 normal. No rub or gallop. Extremities: 2+ edema. No varicose veins Neurological: Patient is still somewhat sleepy but communicative Skin: Warm and dry. Normal turgor. No rash. Palpitation: Normal elasticity for age Abdomen: Abdomen is s/p ex lap soft Psych: unable MSK: no joint tenderness or swelling. Digits and nails normal, no deformity : kidney or bladder not palpable Labs/imaging reviewed. Past medical history, past surgical history, family history, social history, allergy reviewed and noted as below Family hx: no hx of CKD. Rest non-contributory PET CT 04/2017: neg CT abdomen: left adrenal adenoma 1.9 cm Rt kidney 2.6 cm hyperdense cyst UA 100 protein, neg for blood renin and roma low, metanehrine WNL PTH 133 Vit D 27 ANCA neg, K/L ratio WNL Objective - Vital Signs/Intake and Output Vital Signs (last 24 hours): Temp Pulse Resp BP Pulse Ox 97.1 F L 92 H 18 134/54 L 98 04/29/18 12:00 04/29/18 12:00 04/29/18 12:00 04/29/18 12:00 04/29/18 06:00 Intake and Output: 04/29/18 04/29/18 06:59 18:59 Intake Total 1520 Output Total 400 Balance 1120 - Medications Medications: Current Medications Amlodipine Besylate (Norvasc) 10 mg PO DAILY [facility] Last Admin: 04/29/18 09:51 Dose: 10 mg Arformoterol Tartrate (Brovana) 15 mcg IH [id number] [facility] Last Admin: 04/29/18 07:51 Dose: 15 mcg Armodafinil (Nuvigil 150 Mg Tab) 150 mg PO DAILY [facility] Last Admin: 04/29/18 09:50 Dose: 150 mg Aspirin (Ecotrin) 81 mg PO DAILY [facility] Last Admin: 04/29/18 09:51 Dose: 81 mg Atorvastatin Calcium (Lipitor) 20 mg PO HS [facility] Last Admin: 04/28/18 21:16 Dose: 20 mg Docusate Sodium (Colace) 100 mg PO TID [facility] Last Admin: 04/29/18 09:50 Dose: 100 mg Ergocalciferol (Drisdol 50,000 Intl Units Cap) 1 cap PO Q7D [facility] Last Admin: 04/26/18 10:23 Dose: 1 cap Ferrous Gluconate (Fergon) 324 mg PO TID [facility] Last Admin: 04/29/18 09:50 Dose: 324 mg Hydralazine HCl (Apresoline) 100 mg PO TID [facility] Last Admin: 04/29/18 09:51 Dose: 100 mg Hydromorphone HCl (Dilaudid) 1 mg PO Q6H PRN PRN Reason: Pain, severe (8-10) Last Admin: 04/29/18 03:09 Dose: 1 mg Meropenem/Sodium Chloride (Merrem Iv 500 Mg/Ns 50 Ml) 500 mg in 50 mls @ 100 mls/hr IVPB Q12 [facility]; Protocol Stop: 05/05/18 10:01 Last Admin: 04/29/18 09:50 Dose: 100 mls/hr Insulin Detemir (Levemir) 20 unit SC [facility] Last Admin: 04/28/18 21:27 Dose: Not Given Insulin Human Regular (Humulin R Low) [address] [facility]; Protocol Last Admin: 04/29/18 12:38 Dose: 2 unit Isosorbide Mononitrate (Imdur Er) 60 mg PO DAILY [facility] Last Admin: 04/29/18 09:50 Dose: 60 mg Labetalol HCl (Trandate) 200 mg PO TID [facility] Last Admin: 04/29/18 09:51 Dose: 200 mg Labetalol HCl (Trandate) 20 mg IV Q4 PRN PRN Reason: Other Levalbuterol HCl (Xopenex) 1.25 mg IH [id number] PRN PRN Reason: Shortness of Breath Last Admin: 04/27/18 20:01 Dose: 1.25 mg Linezolid (Zyvox) 600 mg PO BID [facility]; Protocol Stop: 05/05/18 10:01 Last Admin: 04/29/18 09:51 Dose: 600 mg Nifedipine (Procardia Xl) 60 mg PO QPM [facility] Last Admin: 04/28/18 19:10 Dose: Not Given Pantoprazole Sodium (Protonix Ec Tab) 20 mg PO ACB [facility] Last Admin: 04/29/18 08:39 Dose: 20 mg Silver Sulfadiazine (Silvadene 1% 25 Gm) 0 gm TP BID [facility] Last Admin: 04/29/18 10:00 Dose: 25 gm Silver Sulfadiazine (Silvadene 1% 25 Gm) 0 gm TP BID [facility] Last Admin: 04/29/18 10:00 Dose: Not Given Simethicone (Mylicon Chew Tab) 80 mg PO PCHS PRN PRN Reason: GI distress Last Admin: 04/27/18 23:16 Dose: 80 mg Vitamin B Complex/Vit C/Folic Acid (Nephro-Holland) 1 tab PO 0800 [facility] Last Admin: 04/29/18 09:53 Dose: 1 tab - Labs Labs: 04/29/18 07:00 04/29/18 07:00 PT 13.5 SECONDS (9.4-12.5) H 04/28/18 07:00 INR 1.17 04/28/18 07:00 APTT 26.6 Seconds (25.1-36.5) 04/28/18 07:00
[2018-04-29] MEDS ORDERED: Darbepoetin Alfa 100 mcg/ml Inj SC SCH (14:00)
--- NOTE | 2018-04-29 16:38 | PN ---
DATE: 04/29/2018 REASON FOR CONSULTATION AND FOLLOWUP: Cardiac evaluation, coronary artery disease, admitted with altered mental status. This note is in addition to dictated by our nurse practitioner. The patient feels much awake and alert. Discussed with the nurse since yesterday patient much awake and alert. SUBJECTIVE: This is a 62-year-old female obese morbidly, history of coronary artery disease in the past, circ was stented in the remote, admitted recently with small bowel obstruction, status post exploratory laparotomy done, history of rectal cancer, history of colostomy, history of sleep apnea, morbid obesity, diabetes, hypertension, history of DVT, history of PE, admitted with altered mental status. Recent echo showed preserved LV function. RECOMMENDATIONS: Continue aggressive medical treatment, monitor electrolytes, hemoglobin 7.9. If H and H goes below, consider packed RBC transfusion. BUN 66, creatinine is 2.6, initially admitted with creatinine 3.7, stage IV chronic kidney disease, but renal function improved. Mostly likely, this altered mental status is secondary to the metabolic disorder. We will follow with you. Thank you Dr. Florian for providing us the opportunity to taking care of patient, Ismael Vasquez. Pamela Guerrero MD
[2018-04-29] MEDS: Darbepoetin Alfa 25 mcg/ml Inj SC SCH (17:44)
[2018-04-29] MEDS: Darbepoetin Alfa 100 mcg/ml Inj SC SCH (17:44)
[2018-04-29] MEDS: NIFEdipine 60 mg ER Tab PO SCH (17:45)
[2018-04-29] MEDS: Insulin Detemir 100 units/ml Vial (Levemir) SC SCH (21:57)
--- NOTE | 2018-04-30 00:02 | PN ---
DATE: 04/29/2018 PULMONARY PROGRESS NOTE REFERRING PHYSICIAN: Elroy Florian MD SUBJECTIVE: She is lying in the bed, arousable. Feels okay, on nasal cannula. Still has body aches and pain. No cough. No sputum production. No chest pain. Mild abdominal pain. Suzie have been removed. Has a dressing. Colostomy working okay. No leg swelling. OBJECTIVE: VITAL SIGNS: Temperature 98, heart rate 94, respiratory rate 18, blood pressure 118/47, pulse ox 98% on nasal cannula. HEENT: Moist mucous membranes. Crowded airway. Mallampati score is 4. NECK: Supple. No JVD. LUNGS: Have a fair airflow with rhonchi. HEART: S1 and S2. ABDOMEN: Soft. Mild tenderness. Has a dressing on the incision site. Colostomy working okay. EXTREMITIES: There is no edema. NEUROLOGIC: Awake, alert. Follows simple command. MEDICATIONS: She is on hydralazine 100 mg three times a day, Aranesp 20 mcg weekly, Aranesp 100 mcg weekly, Brovana inhaled twice a day, Colace 100 mg three times a day, Dilaudid 1 mg every 6 hours p.r.n., vitamin D 50,000 units every 7 days, Ecotrin 81 mg daily, ferrous gluconate 324 mg three times a day, insulin coverage, Imdur ER 60 mg daily, Levemir 20 units subcu at bedtime, Lipitor 20 mg daily, meropenem at 500 mg every 12 hours, simethicone 80 mg after a meal at bedtime, Nephro vitamins daily, Norvasc 10 mg daily, Nuvigil 150 mg daily in the morning, Procardia XL 60 mg daily, Protonix 40 mg daily, Trandate 20 mg every 4 hours p.r.n., labetalol 200 mg three times a day [id number], Xopenex 1.25 mg every 6 hours, Zyvox 600 mg twice a day. LABORATORY DATA: Shows hemoglobin 7.9, hematocrit 26.4, WBC 8.8, platelet count is 434. Sodium 137, potassium 4.3, chloride 109, bicarbonate 24, BUN 66, creatinine 2.6, glucose 183, calcium 7.9. AST 20, ALT 21, alk phos is 131, albumin is 2.2. Cortisol level in the morning is 12.5. Microbiology: Blood culture and urine culture, there is no growth. IMPRESSION AND PLAN: Status post small bowel obstruction with hernia, requiring laparotomy and hernia repair and relocation of colostomy; obstructive sleep apnea syndrome; hypoventilation syndrome, not very compliant with continuous positive airway pressure/bilevel positive airway pressure; history of pulmonary embolism and deep venous thrombosis; morbid obesity; diabetes; hypertension; being treated for healthcare-associated sepsis. Pulmonary point of view, doing okay. Has hypersomnia, lethargic during the daytime. Feels better today compared to yesterday with Nuvigil. We will increase Nuvigil. Encourage bilevel positive airway pressure use. Gastric prophylaxis. Deep venous thrombosis prophylaxis. Pressure ulcer precaution. Physical therapy. Out of bed to chair if possible. Thank you and we will follow with you. Pamela Ayala MD
--- NOTE | 2018-04-30 02:20 | PN ---
DATE: 04/29/2018 SUBJECTIVE: A 62-year-old female patient in psych floor now. She still complained of generalized weakness, no energy. She has no pain, no vomiting, no nausea, no other complaints. PHYSICAL EXAMINATION: VITAL SIGNS: Temperature is 98, heart rate is 94, blood pressure 118/47, respirations 18, and saturation 94% on room air. HEAD AND NECK: Normal. No JVD. No thyromegaly. CHEST: Clear bilateral. CARDIAC: First sound and second sound normal with systolic ejection murmur in the pulmonary area. ABDOMEN: Soft. Obese. There is midline. Suture line, there is mild redness. EXTREMITIES: Mild edema above the ankle. NEUROLOGIC: She moves all extremities, but is generally weak. She has difficulty moving her upper and lower extremity. LABORATORY DATA: White count 8.8, hemoglobin 7.9, hematocrit 26.4, platelets 434. Chemistries: Sodium 137, potassium 4.3, chloride 109, bicarb 24, BUN 66, creatinine 2.6, blood sugar 183, calcium 7.9. AST and ALT and bilirubin are normal. Alkaline phosphatase 131, total bilirubin 5.5, albumin 2.2, which is low. The patient has cortisol level which is normal at 12.5, and blood sugar running good 170-190. IMPRESSION AND PLAN: 1. Generalized weakness. Etiology could be underlying infections, unclear deconditioning. 2. Psychiatric ji, the patient seems kind of depressed. I am going to get psychiatric evaluation to treat her. We are going to try to get her some antidepressant medication. We will get the psychiatrist, Dr. Arreguin to evaluate her. Continue current therapy. 3. Status post bowel obstructions, hernia repair. She still has some sutures, stable. The patient has possible some inflammatory changes on the wound side and abdominal wall area, could be cellulitis. Continue IV antibiotics, Zyvox, and meropenem. 4. Diabetes. Continue insulin plus Levemir. 5. Hypercoagulable state. She is off request because was above 100. Hematology/Oncology, Dr. Faye has seen the patient. Three units of blood transfusion will be given. We will continue monitoring, probably going to give Lovenox 30 mg subcutaneous daily. 6. Morbid obesity. Obstructive sleep apnea. We will continue current treatment. 7. Current medication; hydralazine 100 mg t.i.d., Aranesp 25 mcg every week and 100 mcg every week, 125 once a week. She is also on Brovana twice a day, Colace, Dilaudid, vitamin D, aspirin 81, iron pills, Humulin R, Imdur 60 p.o. daily, Levemir 20, Lipitor 20 at bedtime, meropenem, Mylicon, vitamin B complex, Norvasc 10, Nuvigil 250 mg daily, Protonix 20 daily, Silvadene , stage II sacral decubitus before the groins SI area, stage II erosions, also hypertension. Continue tramadol 200 mg p.o. t.i.d. Continue using BiPAP machine. Continue current therapy. We will follow up clinically. Elroy Florian MD
[2018-04-30 06:49] LABS: CALCIUM 8.2 mg/dL (8.4-10.5)
[2018-04-30 07:06] LABS: HEMOGLOBIN 9.4 g/dL (12.0-16.0); MEAN CELL VOLUME 89.3 fl (80.0-105.0); MEAN CORPUSCULAR HEMOGLOBIN 27.1 pg (25.0-35.0); MEAN CORPUSCULAR HGB CONC 30.3 g/dl (31.0-37.0); MEAN PLATELET VOLUME 10.8 fl (7.0-11.0); RBC 3.47 10^6/uL (3.5-6.1); RED CELL DISTRIBUTION WIDTH 17.7 % (11.5-14.5); WHITE BLOOD COUNT 7.9 10^3/uL (4.5-11.0)
[2018-04-30] MEDS: Arformoterol 15 mcg/2 ml Inh Sol IH SCH ×2 (07:46→19:50)
[2018-04-30] MEDS: Insulin Reg-LOW-Coverage SC SCH ×4 (09:42→22:30)
[2018-04-30] MEDS: Multivitamin Vitamin B Complex (Nephro-Vite) Tab PO SCH (09:43)
[2018-04-30] MEDS: Enoxaparin 30 mg Syringe SC SCH (09:43)
[2018-04-30] MEDS: MEROPENEM 500 MG in NS 500 MG/50 ML BAG IVPB SCH ×2 (09:43→23:01)
[2018-04-30] MEDS: Pantoprazole 20 mg EC Tab PO SCH (09:44)
[2018-04-30] MEDS: Silver Sulfadiazine 1% Cream (25 gm) TP SCH ×3 (09:44→18:07)
[2018-04-30] MEDS ORDERED: Dextrose 5%/0.9% NS 1,000 ML IV SCH (12:15)
[2018-04-30] MEDS: Armodafinil 250 mg Tab PO SCH (13:12)
--- NOTE | 2018-04-30 13:18 | CP.PCM.PN ---
Subjective - Date & Time of Evaluation Date of Evaluation: 04/30/18 Time of Evaluation: 10:00 - Subjective Subjective: Care Coordination Note: Pt. seen and examined in bed,. Pt. appears lethargic, NAD, responsive. RR easy and unlabored. Vital signs reviewed. Labs reviewed. PE: Patient morbid obese. Lethargic, HEad and Neck normal, supple,NO JVD. Rt. CW Port noted Heart S1 S2 reg Lungs with diminished breath sounds. Abdomen large , soft, midline suture line, with some redness noted.,abdominal binder noted. Generalized edema noted. A/P: 62 yr. old morbidly obese female with PMH SBO, ventral wall hernia with repair, colostomy, COPD, hx of VRE UTI, DM, Htn, CAD, unresectable rectal cancer s/p chemo and radiation, PE s/p IVC filter admitted with generalized weakness, altered mental status. AMS secondary to metabolic encephalopathy per Neuro, recommend Nuvigil and continue to monitor. Abdominal wall cellulitis, receiving Zyvox PO Merrem IV per ID, monitor CBC. Lethargy maybe secondary to underlying depression, Psych consult pending. SHELBI most likely seconday to decreased PO intake. Anemia, s/p transfusions PRBCs per Hematology/ Oncology. PT recommends [facility], however, patient not accepted back to [facility] for not participating in PT, awaiting repeat PT eval, recommendations for [facility]. Will continue to follow and monitor. Objective - Vital Signs/Intake and Output Vital Signs (last 24 hours): Temp Pulse Resp BP Pulse Ox 97.5 F L 96 H 20 155/60 H 98 04/30/18 08:28 04/30/18 09:45 04/30/18 08:28 04/30/18 09:45 04/30/18 08:28 Intake and Output: 04/30/18 04/30/18 06:59 18:59 Intake Total 725 Output Total 600 Balance 125 - Medications Medications: Current Medications Amlodipine Besylate (Norvasc) 10 mg PO DAILY [facility] Last Admin: 04/30/18 09:43 Dose: 10 mg Arformoterol Tartrate (Brovana) 15 mcg IH [id number] [facility] Last Admin: 04/30/18 07:46 Dose: 15 mcg Armodafinil (Nuvigil 250 Mg Tab) 250 mg PO DAILY [facility] Aspirin (Ecotrin) 81 mg PO DAILY [facility] Last Admin: 04/30/18 09:42 Dose: 81 mg Atorvastatin Calcium (Lipitor) 20 mg PO HS [facility] Last Admin: 04/29/18 21:22 Dose: 20 mg Darbepoetin Timothy (Aranesp) 25 mcg SC QWK [facility] Last Admin: 04/29/18 17:44 Dose: 25 mcg Darbepoetin Timothy (Aranesp) 100 mcg SC QWK [facility] Last Admin: 04/29/18 17:44 Dose: 100 mcg Docusate Sodium (Colace) 100 mg PO TID [facility] Last Admin: 04/30/18 09:41 Dose: 100 mg Enoxaparin Sodium (Lovenox) 30 mg SC DAILY [facility]; Protocol Last Admin: 04/30/18 09:43 Dose: 30 mg Ergocalciferol (Drisdol 50,000 Intl Units Cap) 1 cap PO Q7D [facility] Last Admin: 04/26/18 10:23 Dose: 1 cap Ferrous Gluconate (Fergon) 324 mg PO TID [facility] Last Admin: 04/30/18 09:42 Dose: 324 mg Hydralazine HCl (Apresoline) 100 mg PO TID [facility] Last Admin: 04/30/18 09:41 Dose: 100 mg Hydromorphone HCl (Dilaudid) 1 mg PO Q6H PRN PRN Reason: Pain, severe (8-10) Last Admin: 04/29/18 03:09 Dose: 1 mg Meropenem/Sodium Chloride (Merrem Iv 500 Mg/Ns 50 Ml) 500 mg in 50 mls @ 100 mls/hr IVPB Q12 [facility]; Protocol Stop: 05/05/18 10:01 Last Admin: 04/30/18 09:43 Dose: 100 mls/hr Dextrose/Sodium Chloride (Dextrose 5%/0.9% Ns 1000 Ml) 1,000 mls @ 50 mls/hr IV .Q20H [facility] Insulin Detemir (Levemir) [address] [facility] Last Admin: 04/29/18 21:57 Dose: Not Given Insulin Human Regular (Humulin R Low) 0 units SC ACHS [facility]; Protocol Last Admin: 04/30/18 09:42 Dose: 1 unit Isosorbide Mononitrate (Imdur Er) 60 mg PO DAILY [facility] Last Admin: 04/30/18 09:42 Dose: 60 mg Labetalol HCl (Trandate) 200 mg PO TID [facility] Last Admin: 04/30/18 09:45 Dose: 200 mg Labetalol HCl (Trandate) 20 mg IV Q4 PRN PRN Reason: Other Levalbuterol HCl (Xopenex) 1.25 mg IH [id number] PRN PRN Reason: Shortness of Breath Last Admin: 04/27/18 20:01 Dose: 1.25 mg Linezolid (Zyvox) 600 mg PO BID [facility]; Protocol Stop: 05/05/18 10:01 Last Admin: 04/30/18 09:45 Dose: 600 mg Nifedipine (Procardia Xl) 60 mg PO QPM [facility] Last Admin: 04/29/18 17:45 Dose: 60 mg Pantoprazole Sodium (Protonix Ec Tab) 20 mg PO ACB [facility] Last Admin: 04/30/18 09:44 Dose: 20 mg Silver Sulfadiazine (Silvadene 1% 25 Gm) 0 gm TP BID [facility] Last Admin: 04/30/18 09:44 Dose: 25 gm Simethicone (Mylicon Chew Tab) 80 mg PO PCHS PRN PRN Reason: GI distress Last Admin: 04/27/18 23:16 Dose: 80 mg Vitamin B Complex/Vit C/Folic Acid (Nephro-Holland) 1 tab PO 0800 [facility] Last Admin: 04/30/18 09:43 Dose: 1 tab - Labs Labs: 04/30/18 06:00 04/30/18 06:00 PT 13.5 SECONDS (9.4-12.5) H 04/28/18 07:00 INR 1.17 04/28/18 07:00 APTT 26.6 Seconds (25.1-36.5) 04/28/18 07:00
--- NOTE | 2018-04-30 13:19 | PN ---
DATE: 04/30/2018 REFERRING PHYSICIAN: Dr. Florian SUBJECTIVE: She is lying in the bed. In the last 48 hours, she had been refusing a noninvasive ventilation, sleepy, arousable, generalized aches and pain. Poor appetite. No nausea, no vomiting, no diarrhea. Mild abdominal pain. No leg pain or leg swelling. OBJECTIVE: GENERAL: Sleepy, arousable. VITAL SIGNS: Temperature is 98, heart rate 96, respiratory is 20, blood pressure 155/60, pulse ox 98% on nasal cannula. HEENT: Moist mucous membrane. Crowded airway. Short thick neck. LUNGS: Had a scattered rhonchi. HEART: S1, S2. ABDOMEN: Soft. Incision is covered with dressing. Colostomy working well. EXTREMITIES: There is no edema. NEUROLOGIC: Sleepy, arousable. Follows simple command. MEDICATIONS: She is on hydralazine 100 mg three times a day, Aranesp 125 mcg weekly, Brovana inhaled twice a day, Colace 100 mg three times a day, Dilaudid 1 mg every 6 hours p.r.n., Ecotrin 81 mg daily, ferrous gluconate 324 mg three times a day, Imdur ER 60 mg daily, Levemir is 20 units subcu at bedtime, Lipitor 20 mg daily, Lovenox 30 mg subcu daily, meropenem 500 mg every 12 hours, chewable tablet after meals at bedtime p.r.n., Nephro vitamins daily, Norvasc 10 mg daily, Nuvigil 250 mg daily, Procardia XL 60 mg daily, Protonix 40 mg daily, labetalol 20 mg IV every 4 hours p.r.n., Xopenex inhaled every 6 hours p.r.n., Zyvox 600 mg twice a day. LABORATORY DATA: Shows hemoglobin 9.4, hematocrit 31.0, WBC 7.9, platelet is 398,000. Sodium 139, potassium 4.5, chloride 110, bicarbonate 23, BUN 71, creatinine 2.4, glucose 168, calcium is 8.2. Microbiology, blood culture, urine culture, there is no growth. IMPRESSION AND PLAN: Status post small bowel obstruction with hernia requiring laparotomy and hernia repair and relocation of colostomy, obstructive sleep apnea syndrome, hypoventilation syndrome, noncompliant with CPAP/BiPAP, history of pulmonary embolism, deep venous thrombosis in the past, morbid obesity, diabetes, hypertension, healthcare-associated sepsis, rectal carcinoma, morbid obesity. Case discussed with nursing staff. Apparently, her Nuvigil was not given this morning. Requested to give it now and continue encourage BiPAP use. Keep head at 45 degrees. High risk for respiratory failure. Gastric prophylaxis, deep venous thrombosis prophylaxis. Her renal function deteriorating; we will start IV fluid D5 normal saline 50 mL per hour. Follow up labs in the morning. Overall, poor prognosis. Thank you and we will follow with you. Pamela Ayala MD
--- NOTE | 2018-04-30 13:23 | PN ---
DATE: 04/30/2018 LOCATION: The patient is in room 375, bed 2. REASON FOR CONSULTATION: Coronary artery disease, renal dysfunction, altered mental status, diabetes, hypertension, morbid obesity. SUBJECTIVE: The patient is lying flat in bed without any respiratory distress. The patient is still drowsy, wants to sleep, but answers to questions on calling. Denies chest pain, shortness of breath, palpitation. PHYSICAL EXAMINATION VITAL SIGNS: Blood pressure 155/60, respirations 20, pulse 96, temperature 97.5. HEENT: Head is normocephalic. Eyes; pupils normal. Conjunctivae slightly pale. NECK: JVP low. Carotid equal. THORAX: AP diameter normal. LUNGS: Clear. CARDIOVASCULAR: S1, S2. ABDOMEN: Protuberant. The patient has a colostomy. EXTREMITIES: No clubbing, no cyanosis. LABORATORY DATA: WBC 7.9, hemoglobin 9.4, hematocrit 31.0, platelets 398,000. Sodium 139, potassium 4.5, BUN 71, creatinine 2.4, random glucose 168. Calcium 8.2. DIAGNOSES: Altered mental status, coronary artery disease, history of stent in circumflex, hypertension, morbid obesity, sleep apnea, chronic obstructive pulmonary disease, congestive heart failure, history of deep venous thrombosis and pulmonary embolism, surgery for rectal cancer, status post colostomy. Recently, the patient had laparotomy for intestinal obstruction. Anemia, renal dysfunction. Echo showed normal left ventricular function with normal ejection fraction. PLAN: To continue present therapy including Zyvox 600 mg two times a day, labetalol 200 mg by mouth three times a day, Protonix 20 daily, nifedipine ER 60 mg daily, armodafinil 250 mg by mouth daily, amlodipine 10 mg daily, meropenem 500 mg IV every 12 hours, Lovenox 30 mg subcutaneously daily, atorvastatin 20 daily, insulin detemir 20 units subcutaneously at bedtime, isosorbide mononitrate 60 daily, ferrous gluconate 324 mg by mouth three times a day, aspirin 81 mg daily, hydralazine 100 mg three times a day. We will monitor the patient with you and follow with you. Pamela Hernandez MD [facility] # [id number]
--- NOTE | 2018-04-30 14:39 | CP.PCM.PN ---
Subjective - Date & Time of Evaluation Date of Evaluation: 04/30/18 Time of Evaluation: 14:38 - Subjective Subjective: Nephrology Consultation Note: Assessment: Stable altered mental status: improved SBO s/p ex lap Acute Kidney Injury (N17.9) likely pre-renal state left adrenal adenoma, Rt renal hyperdense cyst chronic hypercapnic respi failure Diabetic chronic Kidney Disease (E11.22) Hypertensive Chronic Kidney Disease (I12.9) Chronic Kidney Disease (N18.3) Stage 3 with 2.4 gm proteinuria (R80.9) likely due to DM/HTN/Obesity Anemia Vit D def morbid obesity, CAD s/p stent, COPD/SUMMER, rectal ca s/p colostomy Plan No acute need for renal replacement therapy at this time. HTN control on multiple meds; norvasc hydralazine labetalol nifedipine and imdur. hold ARB due to SHELBI Monitor Input/Output, daily weights and renal function with basic metabolic panel pulmonary ID heme and surgery following PRBC as needed. 2 units [id number]/16/18. d/w heme and okay to use KAVYA from heme perspective. will order aransep 125 mcg (04/29/18) supplement lytes as needed lasix 40 mg oral from tomorrow Adrenal adenoma work up with plasma renin/aldosterone, plasma metanephrine NEGATIVE. outpt 1 mg dexa suppression test repeat renal sono in 6 months to assess her Rt renal cyst Dose meds/antibiotics for reduced GFR. Avoid fleets enema/magnesium based laxatives. Avoid nephrotoxins/NSAIDs/ iodinated contrast (unless needed emergently) Glycemic control Further work up/management as per primary team Thanks for allowing me to participate in care of your patient. Will follow patient with you. Please call if any Qs. had d/w team Dr Dae Dawn Office: [phone] Chief Complaint;AMS Reason for consult: Acute Kidney Injury, CKD 3 HPI: Pt is a 62 F with hx of diabetes Mellitus (15 years), hypertension (years), CKD 3 with baseline cr 1.2-1.3 with AKIs, morbid obesity, CAD s/p stent, COPD/SUMMER on CPAP, rectal ca s/p colostomy recently admitted for SBP s/p ex-lap, seen for SHELBI and HTN urgency came back with complaints of AMS and fever. renal consult for CKD and SHELBI management. pt has no urine complaints. Denies OTC/herbal meds or NSAIDs No recent iodinated contrast exposure. No obvious episodes of low BP. ROS: pt feels same. denies CP/SOB Physical Examination: General Appearance: comfortable,morbidly obese. same appearing Vitals reviewed and noted as below Head; Atraumatic, normocephalic ENT: dry mucosa EYES: Pupils are equal, round and reactive to light accommodation. Eye muscles and extraocular movement intact. Sclera is anicteric. Neck; supple no lymphadenopathy, no thyromegaly or bruit Lungs: Normal respiratory rate/effort. Breath sounds bilateral equal, diminished at bases Heart: normal rate. s1s2 normal. No rub or gallop. Extremities: 2+ edema. No varicose veins Neurological: Patient is still somewhat sleepy but communicative Skin: Warm and dry. Normal turgor. No rash. Palpitation: Normal elasticity for age Abdomen: Abdomen is s/p ex lap soft Psych: unable MSK: no joint tenderness or swelling. Digits and nails normal, no deformity : kidney or bladder not palpable Labs/imaging reviewed. Past medical history, past surgical history, family history, social history, allergy reviewed and noted as below Family hx: no hx of CKD. Rest non-contributory PET CT 04/2017: neg CT abdomen: left adrenal adenoma 1.9 cm Rt kidney 2.6 cm hyperdense cyst UA 100 protein, neg for blood renin and roma low, metanehrine WNL PTH 133 Vit D 27 ANCA neg, K/L ratio WNL Objective - Vital Signs/Intake and Output Vital Signs (last 24 hours): Temp Pulse Resp BP Pulse Ox 97.5 F L 88 20 134/52 L 98 04/30/18 08:28 04/30/18 13:09 04/30/18 08:28 04/30/18 13:09 04/30/18 08:28 Intake and Output: 04/30/18 04/30/18 06:59 18:59 Intake Total 725 Output Total 600 Balance 125 - Medications Medications: Current Medications Amlodipine Besylate (Norvasc) 10 mg PO DAILY [facility] Last Admin: 04/30/18 09:43 Dose: 10 mg Arformoterol Tartrate (Brovana) 15 mcg IH [id number] [facility] Last Admin: 04/30/18 07:46 Dose: 15 mcg Armodafinil (Nuvigil 250 Mg Tab) 250 mg PO DAILY [facility] Last Admin: 04/30/18 13:12 Dose: 250 mg Aspirin (Ecotrin) 81 mg PO DAILY [facility] Last Admin: 04/30/18 09:42 Dose: 81 mg Atorvastatin Calcium (Lipitor) 20 mg PO HS [facility] Last Admin: 04/29/18 21:22 Dose: 20 mg Darbepoetin Timothy (Aranesp) 25 mcg SC QWK [facility] Last Admin: 04/29/18 17:44 Dose: 25 mcg Darbepoetin Timothy (Aranesp) 100 mcg SC QWK [facility] Last Admin: 04/29/18 17:44 Dose: 100 mcg Docusate Sodium (Colace) 100 mg PO TID [facility] Last Admin: 04/30/18 13:10 Dose: 100 mg Enoxaparin Sodium (Lovenox) 30 mg SC DAILY [facility]; Protocol Last Admin: 04/30/18 09:43 Dose: 30 mg Ergocalciferol (Drisdol 50,000 Intl Units Cap) 1 cap PO Q7D [facility] Last Admin: 04/26/18 10:23 Dose: 1 cap Ferrous Gluconate (Fergon) 324 mg PO TID [facility] Last Admin: 04/30/18 13:10 Dose: 324 mg Hydralazine HCl (Apresoline) 100 mg PO TID [facility] Last Admin: 04/30/18 13:09 Dose: Not Given Hydromorphone HCl (Dilaudid) 1 mg PO Q6H PRN PRN Reason: Pain, severe (8-10) Last Admin: 04/29/18 03:09 Dose: 1 mg Meropenem/Sodium Chloride (Merrem Iv 500 Mg/Ns 50 Ml) 500 mg in 50 mls @ 100 mls/hr IVPB Q12 [facility]; Protocol Stop: 05/05/18 10:01 Last Admin: 04/30/18 09:43 Dose: 100 mls/hr Dextrose/Sodium Chloride (Dextrose 5%/0.9% Ns 1000 Ml) 1,000 mls @ 50 mls/hr IV .Q20H [facility] Last Admin: 04/30/18 13:10 Dose: 50 mls/hr Insulin Detemir (Levemir) 20 unit SC [facility] Last Admin: 04/29/18 21:57 Dose: Not Given Insulin Human Regular (Humulin R Low) 0 units SC ACHS [facility]; Protocol Last Admin: 04/30/18 13:11 Dose: Not Given Isosorbide Mononitrate (Imdur Er) 60 mg PO DAILY [facility] Last Admin: 04/30/18 09:42 Dose: 60 mg Labetalol HCl (Trandate) 200 mg PO TID [facility] Last Admin: 04/30/18 09:45 Dose: 200 mg Labetalol HCl (Trandate) 20 mg IV Q4 PRN PRN Reason: Other Levalbuterol HCl (Xopenex) 1.25 mg IH [id number] PRN PRN Reason: Shortness of Breath Last Admin: 04/27/18 20:01 Dose: 1.25 mg Linezolid (Zyvox) 600 mg PO BID [facility]; Protocol Stop: 05/05/18 10:01 Last Admin: 04/30/18 09:45 Dose: 600 mg Nifedipine (Procardia Xl) 60 mg PO QPM [facility] Last Admin: 04/29/18 17:45 Dose: 60 mg Pantoprazole Sodium (Protonix Ec Tab) 20 mg PO ACB [facility] Last Admin: 04/30/18 09:44 Dose: 20 mg Silver Sulfadiazine (Silvadene 1% 25 Gm) 0 gm TP BID [facility] Last Admin: 04/30/18 09:44 Dose: 25 gm Simethicone (Mylicon Chew Tab) 80 mg PO PCHS PRN PRN Reason: GI distress Last Admin: 04/27/18 23:16 Dose: 80 mg Vitamin B Complex/Vit C/Folic Acid (Nephro-Holland) 1 tab PO 0800 [facility] Last Admin: 04/30/18 09:43 Dose: 1 tab - Labs Labs: 04/30/18 06:00 04/30/18 06:00 PT 13.5 SECONDS (9.4-12.5) H 04/28/18 07:00 INR 1.17 04/28/18 07:00 APTT 26.6 Seconds (25.1-36.5) 04/28/18 07:00
--- NOTE | 2018-04-30 15:20 | RAD ---
Date of service: 04/30/2018 HISTORY: assess infiltrates COMPARISON: 04/25/2018 FINDINGS: LUNGS: No active pulmonary disease. PLEURA: No significant pleural effusion identified, no pneumothorax apparent. CARDIOVASCULAR: Aortic calcification Moderate cardiomegaly and moderate vascular congestion OSSEOUS STRUCTURES: No significant abnormalities. VISUALIZED UPPER ABDOMEN: Normal. OTHER FINDINGS: Right-sided Port-A-Cath and SVC IMPRESSION: Moderate cardiomegaly and moderate vascular congestion
[2018-04-30] MEDS: Insulin Detemir 100 units/ml Vial (Levemir) SC SCH (23:01)
--- NOTE | 2018-04-30 23:43 | PN ---
DATE: 04/30/2018 ONCOLOGY AND HEMATOLOGY PROGRESS NOTE LOCATION: The patient is in room 375, bed 2. SUBJECTIVE: The patient is seen lying in bed. In the past 48 hours, she has been refusing noninvasive therapy for ventilation. The patient is arousable. Complains of generalized aches and pain. Poor appetite. No nausea or vomiting. No fever or chills. The patient was able to recognize me and had a decent conversation with me. The patient was telling me this morning that if things continue to improve, she would like to go home rather than go to the custodial. The patient denies any leg pain or leg swelling at this time. PHYSICAL EXAMINATION: GENERAL: The patient is examined in the bed. The patient is sleepy, but arousable. Had a decent conversation with me. The patient is awake, alert and oriented to time, place and person. VITAL SIGNS: T-max is 98.4, heart rate is 96, respirations 20, blood pressure is 155/60 and pulse ox is 95% on nasal cannula. HEENT: Head is normocephalic and atraumatic. Conjunctivae pale. Sclerae anicteric. Examination of the oropharynx reveals no oropharyngeal lesions. Tongue is coated and dry. LUNGS: Clear to percussion and auscultation anteriorly with scattered wheezes bilaterally posteriorly. HEART: Reveals S1 and S2 to be normal. No gallop is heard. ABDOMEN: Soft. Colostomy is working well. The patient had surgery for incarcerated hernia along with obstruction of the small bowel loops, which has been corrected about two and a half weeks ago. EXTREMITIES: Reveals no significant edema. NEUROLOGIC: Reveals no focal deficits. The patient is arousable, but sleepy. Follows simple command and is awake and oriented to time, place and person. MEDICATIONS: Reviewed. She is on hydralazine 100 t.i.d., Aranesp 125 mcg weekly, Brovana inhaled twice a day, Colace 100 three times a day, Dilaudid 1 mg every 6 hours p.r.n. for pain, Ecotrin 81 mg daily, she is on ferrous gluconate 324 mg three times a day, Imdur ER 60 mg daily, Levemir 20 units subcutaneously at bedtime, Lipitor 20 mg daily, Lovenox 30 mg subcutanously daily, meropenem 500 mg every 12 hours, she is on Nephro vitamins daily, Norvasc 10 mg daily, Nuvigil 250 mg p.o. daily, Procardia XL 60 mg p.o. daily, Protonix 40 mg p.o. daily, labetalol 20 mg IV every 4 hours p.r.n. for blood pressure elevation, Xopenex inhaled every 6 hours p.r.n., and Zyvox 600 mg p.o. twice a day. LABORATORY DATA: Reveals a hemoglobin 9.4, hematocrit 31, status post-transfusion of 2 units, white count 7.9, and platelet count of 398,000. Sodium 139, K 4.5, chloride 110, bicarbonate 23, BUN 71, creatinine 2.4, glucose 168, and calcium is 8.2. Blood and urine cultures have been negative so far. ASSESSMENT, NOTES, AND PLAN: The patient has a metabolic decompensation related to multiple factors including renal azotemia, diabetes and recent surgery, post small bowel obstruction with hernia requiring laparotomy and hernia repair and relocation of the colostomy, obstructive sleep apnea syndrome, history of pulmonary embolism, deep venous thrombosis, history of myocardial infarction, morbid obesity, hypertension, healthcare-associated sepsis, and history of rectal carcinoma, currently in remission for 4 years. Discussed in detail with the nursing staff. Apparently, the patient has been more lethargic on discussion with the nurse and we are trying to put ahead together including speaking to the family doctor and the Nephrology to see some of this could be contributed by renal dysfunction as well. In the meantime, the patient is on deep venous thrombosis prophylaxis. The patient is also encouraged to use bilevel positive airway pressure on a more continuous basis. Keep the head under 45 degrees to reduce the risk of aspiration. The patient is going to be starting on IV fluids at 50 mL an hour and follow the labs very carefully. Overall, prognosis is guarded and we will follow the patient with you and make appropriate recommendations. I did speak with the PMD as well. Please make a note, this is a complex patient with multiple comorbid medical issues. Time spent with the patient is greater than 45 minutes in correlating all the information, discussing with the staff and talking to the PMD as well. Maria Ines Faye MD [facility] # [id number]
--- NOTE | 2018-05-01 01:19 | PN ---
DATE: 04/30/2018 SUBJECTIVE: The patient is seen in bed, in no acute distress, and nontoxic. PHYSICAL EXAMINATION: VITAL SIGNS: Temperature is 97, blood pressure is 150/60, and respiratory rate of 18. HEENT: Unremarkable. NECK: Supple. LUNGS: Have decreased breath sounds. HEART: Normal S1 and S2. ABDOMEN: Soft. LABORATORY DATA: Reveals a white count of 7.9 and hemoglobin of 9. Chemistries are noted. BUN of 71 and creatinine of 2.4. Urinalysis is noted. Microbiology with blood cultures negative. Urine cultures are negative. The patient had a CAT scan of the head and results are not available and had a chest x-ray, which has no active disease. CAT scan of the abdomen is negative. Dr. Ayala's note is reviewed. ASSESSMENT AND PLAN: A 62-year-old female seen earlier today, overall in poor condition with periods of confusion, was admitted with abdominal wall cellulitis secondary to status post small bowel obstruction and ventral hernia repair, status post incarcerated hernia repair, adhesiolysis and revision of colostomy and acute coronary syndrome with non-ST elevation myocardial infarction and the patient with obstructive sleep apnea, super morbid obesity, chronic obstructive lung disease, history of vancomycin-resistant enterococcus, unresectable rectal cancer, on chemotherapy and colostomy, Port-A-cath, currently on Zyvox and meropenem day #5 with negative blood cultures, negative chest x-ray, negative urine cultures, abdominal wound is improved and negative CT of the abdomen. No fevers. No WBCs, at this point on meropenem which requires renewal which I will do so day #5 and also on Zyvox and also day #5 we will that for now. Overall, the patient's condition is poor and her super morbid obesity and comorbidities and prognosis is quite poor. Lawrence Cheek MD
[2018-05-01] MEDS: Arformoterol 15 mcg/2 ml Inh Sol IH SCH ×2 (07:25→19:25)
--- NOTE | 2018-05-01 07:44 | CP.PCM.PN ---
Subjective - Date & Time of Evaluation Date of Evaluation: 05/01/18 Time of Evaluation: 06:45 - Subjective Subjective: Lethargic but open eyes to name calling, no distress, lying in bed Reason for consultation and follow up: Cardiac evaluation of coronary artery disease, admitted for altered mental status Seen and examined by me and Dr. Guerrero Objective - Vital Signs/Intake and Output Vital Signs (last 24 hours): Temp Pulse Resp BP Pulse Ox 97.9 F 98 H 20 153/60 H 97 04/30/18 17:22 04/30/18 18:08 04/30/18 17:22 04/30/18 18:08 04/30/18 17:22 Intake and Output: 05/01/18 05/01/18 06:59 18:59 Intake Total 500 Output Total 400 Balance 100 - Medications Medications: Current Medications Amlodipine Besylate (Norvasc) 10 mg PO DAILY [facility] Last Admin: 04/30/18 09:43 Dose: 10 mg Arformoterol Tartrate (Brovana) 15 mcg IH [id number] [facility] Last Admin: 05/01/18 07:25 Dose: 15 mcg Armodafinil (Nuvigil 250 Mg Tab) 250 mg PO DAILY [facility] Last Admin: 04/30/18 13:12 Dose: 250 mg Aspirin (Ecotrin) 81 mg PO DAILY [facility] Last Admin: 04/30/18 09:42 Dose: 81 mg Atorvastatin Calcium (Lipitor) 20 mg PO HS [facility] Last Admin: 04/30/18 23:02 Dose: 20 mg Darbepoetin Timothy (Aranesp) 25 mcg SC QWK [facility] Last Admin: 04/29/18 17:44 Dose: 25 mcg Darbepoetin Timothy (Aranesp) 100 mcg SC QWK [facility] Last Admin: 04/29/18 17:44 Dose: 100 mcg Docusate Sodium (Colace) 100 mg PO TID [facility] Last Admin: 04/30/18 18:02 Dose: 100 mg Enoxaparin Sodium (Lovenox) 30 mg SC DAILY [facility]; Protocol Last Admin: 04/30/18 09:43 Dose: 30 mg Ergocalciferol (Drisdol 50,000 Intl Units Cap) 1 cap PO Q7D [facility] Last Admin: 04/26/18 10:23 Dose: 1 cap Ferrous Gluconate (Fergon) 324 mg PO TID [facility] Last Admin: 04/30/18 18:03 Dose: 324 mg Furosemide (Lasix) 40 mg PO DAILY [facility] Hydralazine HCl (Apresoline) 100 mg PO TID [facility] Last Admin: 04/30/18 18:01 Dose: 100 mg Meropenem/Sodium Chloride (Merrem Iv 500 Mg/Ns 50 Ml) 500 mg in 50 mls @ 100 mls/hr IVPB Q12 [facility]; Protocol Stop: 05/05/18 10:01 Last Admin: 04/30/18 23:01 Dose: 100 mls/hr Dextrose/Sodium Chloride (Dextrose 5%/0.9% Ns 1000 Ml) 1,000 mls @ 50 mls/hr IV .Q20H [facility] Last Admin: 04/30/18 13:10 Dose: 50 mls/hr Insulin Detemir (Levemir) 20 unit SC [facility] Last Admin: 04/30/18 23:01 Dose: 20 units Insulin Human Regular (Humulin R Low) 0 units SC ACHS [facility]; Protocol Last Admin: 04/30/18 22:30 Dose: Not Given Isosorbide Mononitrate (Imdur Er) 60 mg PO DAILY [facility] Last Admin: 04/30/18 09:42 Dose: 60 mg Labetalol HCl (Trandate) 200 mg PO TID [facility] Last Admin: 04/30/18 18:08 Dose: 200 mg Labetalol HCl (Trandate) 20 mg IV Q4 PRN PRN Reason: Other Levalbuterol HCl (Xopenex) 1.25 mg IH [id number] PRN PRN Reason: Shortness of Breath Last Admin: 04/27/18 20:01 Dose: 1.25 mg Linezolid (Zyvox) 600 mg PO BID [facility]; Protocol Stop: 05/05/18 10:01 Last Admin: 04/30/18 18:08 Dose: 600 mg Nifedipine (Procardia Xl) 60 mg PO QPM [facility] Last Admin: 04/29/18 17:45 Dose: 60 mg Pantoprazole Sodium (Protonix Ec Tab) 20 mg PO ACB [facility] Last Admin: 04/30/18 09:44 Dose: 20 mg Silver Sulfadiazine (Silvadene 1% 25 Gm) 0 gm TP BID [facility] Last Admin: 04/30/18 18:07 Dose: 25 gm Simethicone (Mylicon Chew Tab) 80 mg PO HS PRN PRN Reason: GI distress Last Admin: 04/27/18 23:16 Dose: 80 mg Vitamin B Complex/Vit C/Folic Acid (Nephro-Holland) 1 tab PO 0800 [facility] Last Admin: 04/30/18 09:43 Dose: 1 tab - Labs Labs: 04/30/18 06:00 04/30/18 06:00 PT 13.5 SECONDS (9.4-12.5) H 04/28/18 07:00 INR 1.17 04/28/18 07:00 APTT 26.6 Seconds (25.1-36.5) 04/28/18 07:00 - Constitutional Appears: Non-toxic, No Acute Distress - Head Exam Head Exam: NORMAL INSPECTION - ENT Exam ENT Exam: Mucous Membranes Dry - Respiratory Exam Respiratory Exam: Clear to Ausculation Bilateral, NORMAL BREATHING PATTERN - Cardiovascular Exam Cardiovascular Exam: +S1, +S2 Additional comments: No JVD right chest criss cath - GI/Abdominal Exam GI & Abdominal Exam: Soft, Normal Bowel Sounds Additional comments: colostomy - Extremities Exam Additional comments: 2-3+ edema - Neurological Exam Additional comments: lethargic but respond to verbal stimuli - Psychiatric Exam Psychiatric exam: Normal Affect, Normal Mood - Skin Skin Exam: Dry, Normal Color, Warm Assessment and Plan - Assessment and Plan (Free Text) Assessment: A 62 year old morbidly obese female who was brought to the ER due to altered mental status. Recently was discharged from [facility] due to small bowel obstruction with resection by Dr. Mckeon. Patient is known to have rectal cancer in the past. with colostomy. History of coronary artery disease with stent of circumflex,hypertension, HLD, DM, Sleep Apnea, COPD, CHF,history of DVT and PE. CT of head unremarkable, EKG showed NSR, Chest X ray showed moderate CHF however bilateral infiltrate. Recent ECHO LVEF normal.Cardiac status stable. Plan: Lethargic but open eyes to name calling Denies chest pain or shortness of breath Heart rate controlled Blood pressure controlled On Norvasc 10 mg daily,ASA 81 mg daily,Lovenox 30 mg daily,Lasix 40 mg daily Hydralazine 100 mg TID,Imdur Er 60 mg daily,Labetolol 200 mg TID,Procardia 60 mg daily Continue antibiotics as ordered Continue current treatment Continue current medications Chart reviewed Will follow up Plan and treatment discussed with Dr. Guerrero
[2018-05-01 07:48] LABS: ALB/GLOB RATIO 0.6 (1.1-1.8); ALBUMIN 2.4 g/dL (3.0-4.8); CALCIUM 8.3 mg/dL (8.4-10.5)
--- NOTE | 2018-05-01 08:32 | CT ---
Date of service: 04/30/2018 PROCEDURE: CT HEAD WITHOUT CONTRAST. HISTORY: AMS COMPARISON: None available. TECHNIQUE: Axial computed tomography images were obtained through the head/brain without intravenous contrast. Radiation dose: Total exam DLP = 960.08 mGy-cm. This CT exam was performed using one or more of the following dose reduction techniques: Automated exposure control, adjustment of the mA and/or kV according to patient size, and/or use of iterative reconstruction technique. FINDINGS: HEMORRHAGE: No intracranial hemorrhage. BRAIN: No mass effect or edema. No atrophy or chronic microvascular ischemic changes. VENTRICLES: Unremarkable. No hydrocephalus. CALVARIUM: Unremarkable. PARANASAL SINUSES: Unremarkable as visualized. No significant inflammatory changes. MASTOID AIR CELLS: Unremarkable as visualized. No inflammatory changes. OTHER FINDINGS: None. IMPRESSION: Normal CT of the Head.
--- NOTE | 2018-05-01 11:17 | PN ---
DATE: 05/01/2018 SUBJECTIVE: The patient is stable. She seems very weak. She wants to get out. She wants to go to different place. She wants to , but she is alert, awake, and oriented x3. She has no respiratory distress. No pain, but generally weak. Please be advised this is a note for 04/30/2018. PHYSICAL EXAMINATION VITAL SIGNS: Temperature 97.9, heart rate 98, blood pressure 153/60, respirations 20, saturation 97% on 3 liters. HEAD AND NECK: Normal. No JVD. No thyromegaly. CHEST: Clear bilaterally. CARDIAC: First sound and second sound normal with systolic murmur in pulmonary area. ABDOMEN: Obese with stable colostomy site on the left side is clean. EXTREMITIES: Edema bilaterally. NEUROLOGIC: She moves all extremities, but she feels generally weak in upper and lower extremities. LABORATORY DATA: Whit count 7.9, hemoglobin 9.4, hematocrit 31, and platelets 398. Chemistry; sodium 139, potassium 4.5, chloride 110, bicarb 23, BUN 71, creatinine 2.4, blood sugar 160, and calcium 8.2. Blood sugar is stable in the 100 to 200 range. The patient had a cortisol level, was 19.9 next day, initial one 12.5. IMPRESSION AND PLAN: 1. Generalized weakness, etiology unclear, deconditioning. The patient has normal cortisol level and she has a normal TSH. The patient will need rehabilitation with good physical therapy. Etiology of weakness seen by neurologist and will be seen by psychiatrist to rule out any underlying depression. At this time, we will continue current treatment. The patient is also getting Provigil. 2. Status post bowel obstruction with hernia repair and inflammatory changes to abdominal wall, possible cellulitis. Currently, she is getting seen by ID consultation. She is on Zyvox and meropenem. 3. Right-sided heart failure, chronic obstructive pulmonary disease, pulmonary hypertension, obstructive sleep apnea. Continue inhaled bronchodilators, continue BiPAP. We will follow up clinically. 4. Diabetes, controlled. Continue insulin coverage, Levemir. 5. Right-sided heart failure, leg edema. Discussed with the wool scourer. She had Lasix. 6. Chronic renal failure. Cortisol level is in the range of 2.5 to 2. At this time, we will continue current therapy. 7. Hypertension. Controlled very well with labetalol 200 p.o. 3 times daily and Norvasc and hydralazine. The patient is stable. Discussed with the son in detail about the condition of the patient. She is a very sick lady with multiple medical problems. Her prognosis is poor prognosis because of underlying multiple medical problems. 8. Rectal carcinoma with inflammatory changes, history of radiation chemo. We will get a GI evaluation. Dr. Faye has seen the patient already. Continue current therapy. Follow up clinically. Elroy Florian MD
--- NOTE | 2018-05-01 11:20 | CP.PCM.PN ---
Subjective - Date & Time of Evaluation Date of Evaluation: 05/01/18 Time of Evaluation: 09:00 - Subjective Subjective: Luan De Paz-Internal Medicine Resident- Hematology Oncology Progress Note Subjective: Patient seen and examined at bedside. No acute events overnight. Patient is awake, alert, responds to verbal stimuli, and follows commands. Offers no new complaints at this time. Denies fever, chills, chest pain, nausea/vomiting. 12 Point ROS negative except as indicated in HPI Physical Examination: - Constitutional Appears: Non-toxic, No Acute Distress - Head Exam Head Exam: ATRAUMATIC, NORMOCEPHALIC - Eye Exam Eye Exam: EOMI, Normal appearance - ENT Exam ENT Exam: Mucous Membranes Moist - Neck Exam Neck exam: Positive for: Full Rom, Normal Inspection. Negative for: Lymphadenopathy, Meningismus, Tenderness, Thyromegaly - Respiratory Exam Respiratory Exam: Diminished breath sounds bilateral lower lobes. absent: Accessory Muscle Use, Decreased Breath Sounds, Rales, Rhonchi, Wheezes, Respiratory Distress - Cardiovascular Exam Cardiovascular Exam: REGULAR RHYTHM, RRR, +S1, +S2. absent: Bradycardia, Tachycardia - GI/Abdominal Exam GI & Abdominal Exam: obese, soft, ostomy right mid abdomen - Extremities Exam Extremities exam: negative for clubbing, cyanosis - Neurological Exam Neurological exam: Awake, Alert, Oriented x3 - Psychiatric Exam Psychiatric exam: Normal Affect, Normal Mood - Skin Skin Exam: Dry, Intact, Warm Assessment and Plan: Patient is a 62 year old female with a past medical history significant for rectal adenocarcinoma s/p [employer] and loop colostomy, CAD s/p GLORIA, CHF, DM2, HTN, CK D, and DVT/PE on Eliquis who was admitted for evaluation and treatment of altered mental status. Heme/onc is consulted for management of elevated ptt. Elevated PTT - resolved - likely false reading x 1 Rectal Adenocarcinoma - pain control- recommend Dilaudid over morphine as half life is shorter and is hepatically metabolized Anemia - s/p transfuse 2 units pRBCS - goal Hgb 10 in light of cardiac issues - possil iron infusion pending Hgb trend Dispo: - Unsafe for discharge from heme/onc perspective at this time Patient case discussed with and plan approved by attending physician, Dr. Faye. Objective - Vital Signs/Intake and Output Vital Signs (last 24 hours): Temp Pulse Resp BP Pulse Ox 97.8 F 100 H 19 176/66 H 98 05/01/18 06:00 05/01/18 06:00 05/01/18 06:00 05/01/18 06:00 05/01/18 06:00 Intake and Output: 05/01/18 05/01/18 06:59 18:59 Intake Total 500 Output Total 400 Balance 100 - Medications Medications: Current Medications Amlodipine Besylate (Norvasc) 10 mg PO DAILY [facility] Last Admin: 04/30/18 09:43 Dose: 10 mg Arformoterol Tartrate (Brovana) 15 mcg IH [id number] [facility] Last Admin: 05/01/18 07:25 Dose: 15 mcg Armodafinil (Nuvigil 250 Mg Tab) 250 mg PO DAILY [facility] Last Admin: 04/30/18 13:12 Dose: 250 mg Aspirin (Ecotrin) 81 mg PO DAILY [facility] Last Admin: 04/30/18 09:42 Dose: 81 mg Atorvastatin Calcium (Lipitor) 20 mg PO HS [facility] Last Admin: 04/30/18 23:02 Dose: 20 mg Darbepoetin Timothy (Aranesp) 25 mcg SC QWK [facility] Last Admin: 04/29/18 17:44 Dose: 25 mcg Darbepoetin Timothy (Aranesp) 100 mcg SC QWK [facility] Last Admin: 04/29/18 17:44 Dose: 100 mcg Docusate Sodium (Colace) 100 mg PO TID [facility] Last Admin: 04/30/18 18:02 Dose: 100 mg Enoxaparin Sodium (Lovenox) 30 mg SC DAILY [facility]; Protocol Last Admin: 04/30/18 09:43 Dose: 30 mg Ergocalciferol (Drisdol 50,000 Intl Units Cap) 1 cap PO Q7D [facility] Last Admin: 04/26/18 10:23 Dose: 1 cap Ferrous Gluconate (Fergon) 324 mg PO TID [facility] Last Admin: 04/30/18 18:03 Dose: 324 mg Furosemide (Lasix) 40 mg PO DAILY [facility] Hydralazine HCl (Apresoline) 100 mg PO TID [facility] Last Admin: 04/30/18 18:01 Dose: 100 mg Meropenem/Sodium Chloride (Merrem Iv 500 Mg/Ns 50 Ml) 500 mg in 50 mls @ 100 mls/hr IVPB Q12 [facility]; Protocol Stop: 05/05/18 10:01 Last Admin: 04/30/18 23:01 Dose: 100 mls/hr Insulin Detemir (Levemir) 20 unit SC HS [facility] Last Admin: 04/30/18 23:01 Dose: 20 units Insulin Human Regular (Humulin R Low) 0 units SC ACHS [facility]; Protocol Last Admin: 04/30/18 22:30 Dose: Not Given Isosorbide Mononitrate (Imdur Er) 60 mg PO DAILY [facility] Last Admin: 04/30/18 09:42 Dose: 60 mg Labetalol HCl (Trandate) 200 mg PO TID [facility] Last Admin: 04/30/18 18:08 Dose: 200 mg Labetalol HCl (Trandate) 20 mg IV Q4 PRN PRN Reason: Other Levalbuterol HCl (Xopenex) 1.25 mg IH [id number] PRN PRN Reason: Shortness of Breath Last Admin: 04/27/18 20:01 Dose: 1.25 mg Linezolid (Zyvox) 600 mg PO BID [facility]; Protocol Stop: 05/05/18 10:01 Last Admin: 04/30/18 18:08 Dose: 600 mg Nifedipine (Procardia Xl) 60 mg PO QPM [facility] Last Admin: 04/29/18 17:45 Dose: 60 mg Pantoprazole Sodium (Protonix Ec Tab) 20 mg PO ACB [facility] Last Admin: 04/30/18 09:44 Dose: 20 mg Silver Sulfadiazine (Silvadene 1% 25 Gm) 0 gm TP BID [facility] Last Admin: 04/30/18 18:07 Dose: 25 gm Simethicone (Mylicon Chew Tab) 80 mg PO PCHS PRN PRN Reason: GI distress Last Admin: 04/27/18 23:16 Dose: 80 mg Thiamine HCl (Vitamin B1 Tab) 100 mg PO DAILY [facility] Vitamin B Complex/Vit C/Folic Acid (Nephro-Holland) 1 tab PO 0800 [facility] Last Admin: 04/30/18 09:43 Dose: 1 tab - Labs Labs: 04/30/18 06:00 05/01/18 06:35 PT 13.5 SECONDS (9.4-12.5) H 04/28/18 07:00 INR 1.17 04/28/18 07:00 APTT 26.6 Seconds (25.1-36.5) 04/28/18 07:00
[2018-05-01] MEDS: Enoxaparin 30 mg Syringe SC SCH (11:48)
[2018-05-01] MEDS: Armodafinil 250 mg Tab PO SCH (11:50)
[2018-05-01] MEDS: Multivitamin Vitamin B Complex (Nephro-Vite) Tab PO SCH (11:51)
[2018-05-01] MEDS: Silver Sulfadiazine 1% Cream (25 gm) TP SCH ×2 (11:53→18:38)
[2018-05-01] MEDS: MEROPENEM 500 MG in NS 500 MG/50 ML BAG IVPB SCH ×2 (11:55→22:00)
--- NOTE | 2018-05-01 12:29 | PN ---
DATE: 05/01/2018 NEUROLOGY FOLLOWUP CHIEF COMPLAINT: Follow up for lethargy. SUBJECTIVE: The patient seen and examined at bedside. This man is lethargic, but follows simple commands. She is in no acute distress. She is supposed to be on BiPAP nightly. Received opiates ____ Dilaudid was discontinued by me last night which can contribute to her lethargy since she is obese. PAST MEDICAL HISTORY: History of coronary artery disease with stent to circumflex, hypertension, hyperlipidemia, diabetes, sleep apnea, COPD, CHF, history of DVT, PE, repeat CAT scan. SOCIAL HISTORY: No illicit drug use, smoking or EtOH abuse. REVIEW OF SYSTEMS: A 14-point review of system is as per HPI. FAMILY HISTORY: Noncontributory. MEDICATIONS: Reviewed by nurse's reconciliation sheet. LABORATORY DATA: Sodium 141, potassium 4.4, chloride 112, CO2 of 25, BUN 68, creatinine 1.9, random glucose 132. PHYSICAL EXAMINATION: GENERAL: The patient is lethargic and seen on bed. Follows simple commands. Raises the finger when asked to with one hand. VITAL SIGNS: Temperature 97.8, pulse rate 85, blood pressure 144/66, respiratory rate 20, oxygen saturation 97% via nasal cannula on 3 liters of oxygen. HEENT: Atraumatic and normocephalic. PERRLA. Extraocular muscles intact. LUNGS: Decreased breath sounds bilaterally. HEART: S1, S2. Normal rate and rhythm. No murmurs, rubs or gallop. ABDOMEN: Soft, nontender, nondistended. Bowel sounds are present. The colostomy is working well. EXTREMITIES: No clubbing. No cyanosis. Peripheral pulses 2+ bilaterally and trace pedal edema bilaterally. NEURO EXAM: The patient is arousable and sleepy. Follows simple commands. Oriented to person and place and year. Recall in 5 minutes 0/3. Poor attention span. Slow thought process. Cranial nerves II through XII intact. Motor exam: Moves all extremities equally. No pronator drift seen. Sensory exam: Decreased light touch and pinprick up to the calves bilaterally. Decreased vibration of the toes. DTRs are 2+ throughout, 1 at both knees and ankles. Coordination: [id number] intact. Gait is deferred for now. IMPRESSION: This is a 62-year-old woman with history of diabetes, recent surgeries status post small bowel obstruction with hernia requiring laparotomy and hernia repair ____ colostomy; obstructive sleep apnea; history of pulmonary embolism; DVT; history of myocardial infarction; morbid obesity; hypertension; hypercholesterolemia; history of pneumonia; history of rectal carcinoma, currently in remission for four years. She has had renal azotemia, metabolic decompensation and has been lethargic secondary to toxic metabolic encephalopathy. In addition was on opiate pain medicines, Dilaudid, which makes her lethargic as well as noncompliant with noninvasive ventilation at nighttime in terms of BiPAP, which does keep her lethargic if she has not been compliant with it. At this time, repeat CAT scan showed no acute intracranial abnormality. RECOMMENDATION: At this time we recommend 1. Advise daily BIPAP usage. 2. Keep blood sugars from 140 to 180. 3. Monitor electrolytes and correct accordingly. 4. Delirium precautions. 5. Thiamine IM one dose ____ activity. 6. Continue with Nuvigil, which will keep her up during the day and continue with current present medical management. Lg Berger MD
[2018-05-01 13:25] LABS: BASO # 0.03 K/mm3 (0.0-2.0); BASO % 0.4 % (0.0-3.0); EOS # 0.2 (0.0-0.7); EOS % 2.1 % (1.5-5.0); GRAN # 6.35 (1.4-6.5); GRAN % 77.2 % (50.0-68.0); HEMOGLOBIN 9.5 g/dL (12.0-16.0); LYMPH # 1.2 (1.2-3.4); LYMPH % 14.7 % (22.0-35.0); MEAN CELL VOLUME 90.7 fl (80.0-105.0); MEAN CORPUSCULAR HEMOGLOBIN 27.7 pg (25.0-35.0); MEAN CORPUSCULAR HGB CONC 30.5 g/dl (31.0-37.0); MEAN PLATELET VOLUME 10.3 fl (7.0-11.0); MONO # 0.5 (0.1-0.6); MONO % 5.6 % (1.0-6.0); RBC 3.43 10^6/uL (3.5-6.1); RED CELL DISTRIBUTION WIDTH 18.2 % (11.5-14.5); WHITE BLOOD COUNT 8.2 10^3/uL (4.5-11.0)
--- NOTE | 2018-05-01 14:46 | PN ---
DATE: 05/01/2018 REASON FOR CONSULTATION: Cardiac evaluation, coronary artery disease, admitted with altered mental status. SUBJECTIVE: The patient is much awake and alert. This note is in addition to dictated by nurse practitioner, Tiffanie Osborne. The patient is currently in 375, bed 2, not in apparent distress. Admitted initially with altered mental status, history of a stent in circumflex in the past, hypertension, morbid obesity, sleep apnea, history of DVT, pulmonary embolism, history of rectal cancer, status post colostomy. Recent echo showed preserved LV function. RECOMMENDATIONS: Continue aspirin, continue Lovenox for DVT prophylaxis, continue 100 mg of hydralazine p.o. t.i.d., continue Imdur, continue Lasix, continue atorvastatin. We will discuss with Dr. 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 The patient was on Eliquis. When the mentation improves, we will put back on the Eliquis for maintenance. We will monitor H and H. If H and H remain stable tomorrow, we will consider restarting Eliquis tomorrow. We will repeat CBC and SMA-7 in the morning. Pamela Guerrero MD
[2018-05-01] MEDS: Insulin Reg-LOW-Coverage SC SCH ×4 (14:58→21:59)
--- NOTE | 2018-05-01 15:12 | CP.PCM.PN ---
Subjective - Date & Time of Evaluation Date of Evaluation: 05/01/18 Time of Evaluation: 15:10 - Subjective Subjective: Nephrology Consultation Note: Assessment: altered mental status: fluctuating SBO s/p ex lap Acute Kidney Injury (N17.9) likely pre-renal state left adrenal adenoma, Rt renal hyperdense cyst chronic hypercapnic respi failure Diabetic chronic Kidney Disease (E11.22) Hypertensive Chronic Kidney Disease (I12.9) Chronic Kidney Disease (N18.3) Stage 3 with 2.4 gm proteinuria (R80.9) likely due to DM/HTN/Obesity Anemia Vit D def morbid obesity, CAD s/p stent, COPD/SUMMER, rectal ca s/p colostomy Plan No acute need for renal replacement therapy at this time. HTN control on multiple meds; norvasc hydralazine labetalol nifedipine and imdur. hold ARB due to SHELBI Monitor Input/Output, daily weights and renal function with basic metabolic panel pulmonary ID heme and surgery following PRBC as needed. 2 units [id number]/18. d/w heme and okay to use KAVYA from heme perspective. on weekly aransep 125 mcg (04/29/18) supplement lytes as needed lasix 40 mg oral from today. stopped IVF due to pulm congestion on CXR and respi concerns. pt on BiPAP. will defer to pulmonary. ABG pending. 1 dose of IV lasix 40 mg also in addition. Adrenal adenoma work up with plasma renin/aldosterone, plasma metanephrine NEGATIVE. outpt 1 mg dexa suppression test repeat renal sono in 6 months to assess her Rt renal cyst Dose meds/antibiotics for reduced GFR. Avoid fleets enema/magnesium based laxatives. Avoid nephrotoxins/NSAIDs/ iodinated contrast (unless needed emergently) Glycemic control Further work up/management as per primary team Thanks for allowing me to participate in care of your patient. Will follow patient with you. Please call if any Qs. had d/w team Dr Dae Dawn Office: [phone] Chief Complaint;AMS Reason for consult: Acute Kidney Injury, CKD 3 HPI: Pt is a 62 F with hx of diabetes Mellitus (15 years), hypertension (years), CKD 3 with baseline cr 1.2-1.3 with AKIs, morbid obesity, CAD s/p stent, COPD/SUMMER on CPAP, rectal ca s/p colostomy recently admitted for SBP s/p ex-lap, seen for SHELBI and HTN urgency came back with complaints of AMS and fever. renal consult for CKD and SHELBI management. pt has no urine complaints. Denies OTC/herbal meds or NSAIDs No recent iodinated contrast exposure. No obvious episodes of low BP. ROS: pt unable to provide. sleepy/lethargic, on BiPAP Physical Examination: General Appearance: comfortable,morbidly obese. ill appearing, on BiPAP Vitals reviewed and noted as below Head; Atraumatic, normocephalic ENT: dry mucosa EYES: Pupils are equal, round and reactive to light accommodation. Eye muscles and extraocular movement intact. Sclera is anicteric. Neck; supple no lymphadenopathy, no thyromegaly or bruit Lungs: Normal respiratory rate/effort. Breath sounds bilateral equal, diminished at bases but overall limited exam due to her obesity Heart: normal rate. s1s2 normal. No rub or gallop. Extremities: 2+ edema. No varicose veins Neurological: Patient is still leepy but arousable Skin: Warm and dry. Normal turgor. No rash. Palpitation: Normal elasticity for age Abdomen: Abdomen is s/p ex lap soft Psych: unable MSK: no joint tenderness or swelling. Digits and nails normal, no deformity : kidney or bladder not palpable Labs/imaging reviewed. Past medical history, past surgical history, family history, social history, allergy reviewed and noted as below Family hx: no hx of CKD. Rest non-contributory PET CT 04/2017: neg CT abdomen: left adrenal adenoma 1.9 cm Rt kidney 2.6 cm hyperdense cyst UA 100 protein, neg for blood renin and roma low, metanehrine WNL PTH 133 Vit D 27 ANCA neg, K/L ratio WNL Objective - Vital Signs/Intake and Output Vital Signs (last 24 hours): Temp Pulse Resp BP Pulse Ox 97.8 F 96 H 19 142/89 98 05/01/18 06:00 05/01/18 13:44 05/01/18 06:00 05/01/18 11:52 05/01/18 06:00 Intake and Output: 05/01/18 05/01/18 06:59 18:59 Intake Total 500 Output Total 400 Balance 100 - Medications Medications: Current Medications Amlodipine Besylate (Norvasc) 10 mg PO DAILY [facility] Last Admin: 05/01/18 11:51 Dose: 10 mg Arformoterol Tartrate (Brovana) 15 mcg IH [id number] [facility] Last Admin: 05/01/18 07:25 Dose: 15 mcg Armodafinil (Nuvigil 250 Mg Tab) 250 mg PO DAILY [facility] Last Admin: 05/01/18 11:50 Dose: 250 mg Aspirin (Ecotrin) 81 mg PO DAILY [facility] Last Admin: 05/01/18 11:52 Dose: 81 mg Atorvastatin Calcium (Lipitor) 20 mg PO HS [facility] Last Admin: 04/30/18 23:02 Dose: 20 mg Darbepoetin Timothy (Aranesp) 25 mcg SC QWK [facility] Last Admin: 04/29/18 17:44 Dose: 25 mcg Darbepoetin Timothy (Aranesp) 100 mcg SC QWK [facility] Last Admin: 04/29/18 17:44 Dose: 100 mcg Docusate Sodium (Colace) 100 mg PO TID [facility] Last Admin: 05/01/18 11:50 Dose: 100 mg Enoxaparin Sodium (Lovenox) 30 mg SC DAILY [facility]; Protocol Last Admin: 05/01/18 11:48 Dose: 30 mg Ergocalciferol (Drisdol 50,000 Intl Units Cap) 1 cap PO Q7D [facility] Last Admin: 04/26/18 10:23 Dose: 1 cap Ferrous Gluconate (Fergon) 324 mg PO TID [facility] Last Admin: 05/01/18 11:52 Dose: 324 mg Furosemide (Lasix) 40 mg PO DAILY [facility] Last Admin: 05/01/18 11:52 Dose: 40 mg Furosemide (Lasix) 40 mg IVP ONCE ONE Stop: 05/01/18 15:10 Hydralazine HCl (Apresoline) 100 mg PO TID [facility] Last Admin: 05/01/18 11:50 Dose: 100 mg Meropenem/Sodium Chloride (Merrem Iv 500 Mg/Ns 50 Ml) 500 mg in 50 mls @ 100 mls/hr IVPB Q12 [facility]; Protocol Stop: 05/05/18 10:01 Last Admin: 05/01/18 11:55 Dose: 100 mls/hr Insulin Detemir (Levemir) 20 unit SC [facility] Last Admin: 04/30/18 23:01 Dose: 20 units Insulin Human Regular (Humulin R Low) 0 units SC ACHS [facility]; Protocol Last Admin: 05/01/18 15:00 Dose: Not Given Isosorbide Mononitrate (Imdur Er) 60 mg PO DAILY [facility] Last Admin: 05/01/18 11:51 Dose: 60 mg Labetalol HCl (Trandate) 200 mg PO TID [facility] Last Admin: 05/01/18 15:00 Dose: Not Given Labetalol HCl (Trandate) 20 mg IV Q4 PRN PRN Reason: Other Levalbuterol HCl (Xopenex) 1.25 mg IH [id number] PRN PRN Reason: Shortness of Breath Last Admin: 04/27/18 20:01 Dose: 1.25 mg Linezolid (Zyvox) 600 mg PO BID [facility]; Protocol Stop: 05/05/18 10:01 Last Admin: 05/01/18 11:52 Dose: 600 mg Nifedipine (Procardia Xl) 60 mg PO QPM [facility] Last Admin: 04/29/18 17:45 Dose: 60 mg Pantoprazole Sodium (Protonix Ec Tab) 20 mg PO ACB [facility] Last Admin: 04/30/18 09:44 Dose: 20 mg Silver Sulfadiazine (Silvadene 1% 25 Gm) 0 gm TP BID [facility] Last Admin: 05/01/18 11:53 Dose: 1 gm Simethicone (Mylicon Chew Tab) 80 mg PO PCHS PRN PRN Reason: GI distress Last Admin: 04/27/18 23:16 Dose: 80 mg Thiamine HCl (Vitamin B1 Tab) 100 mg PO DAILY [facility] Last Admin: 05/01/18 15:00 Dose: Not Given Vitamin B Complex/Vit C/Folic Acid (Nephro-Holland) 1 tab PO 0800 [facility] Last Admin: 05/01/18 11:51 Dose: 1 tab - Labs Labs: 05/01/18 13:07 05/01/18 06:35 PT 13.5 SECONDS (9.4-12.5) H 04/28/18 07:00 INR 1.17 04/28/18 07:00 APTT 26.6 Seconds (25.1-36.5) 04/28/18 07:00
--- NOTE | 2018-05-01 15:37 | CP.PCM.PN ---
Subjective - Date & Time of Evaluation Date of Evaluation: 05/01/18 Time of Evaluation: 09:20 - Subjective Subjective: Comfortable, no fevers, no nausea, no vomiting. Objective - Vital Signs/Intake and Output Vital Signs (last 24 hours): Temp Pulse Resp BP Pulse Ox 97.9 F 98 H 20 153/60 H 97 04/30/18 17:22 04/30/18 18:08 04/30/18 17:22 04/30/18 18:08 04/30/18 17:22 Intake and Output: 05/01/18 05/01/18 06:59 18:59 Intake Total 500 Output Total 400 Balance 100 - Medications Medications: Current Medications Amlodipine Besylate (Norvasc) 10 mg PO DAILY [facility] Last Admin: 04/30/18 09:43 Dose: 10 mg Arformoterol Tartrate (Brovana) 15 mcg IH [id number] [facility] Last Admin: 05/01/18 07:25 Dose: 15 mcg Armodafinil (Nuvigil 250 Mg Tab) 250 mg PO DAILY [facility] Last Admin: 04/30/18 13:12 Dose: 250 mg Aspirin (Ecotrin) 81 mg PO DAILY [facility] Last Admin: 04/30/18 09:42 Dose: 81 mg Atorvastatin Calcium (Lipitor) 20 mg PO HS [facility] Last Admin: 04/30/18 23:02 Dose: 20 mg Darbepoetin Timothy (Aranesp) 25 mcg SC QWK [facility] Last Admin: 04/29/18 17:44 Dose: 25 mcg Darbepoetin Timothy (Aranesp) 100 mcg SC QWK [facility] Last Admin: 04/29/18 17:44 Dose: 100 mcg Docusate Sodium (Colace) 100 mg PO TID [facility] Last Admin: 04/30/18 18:02 Dose: 100 mg Enoxaparin Sodium (Lovenox) 30 mg SC DAILY [facility]; Protocol Last Admin: 04/30/18 09:43 Dose: 30 mg Ergocalciferol (Drisdol 50,000 Intl Units Cap) 1 cap PO Q7D [facility] Last Admin: 04/26/18 10:23 Dose: 1 cap Ferrous Gluconate (Fergon) 324 mg PO TID [facility] Last Admin: 04/30/18 18:03 Dose: 324 mg Furosemide (Lasix) 40 mg PO DAILY [facility] Hydralazine HCl (Apresoline) 100 mg PO TID [facility] Last Admin: 04/30/18 18:01 Dose: 100 mg Meropenem/Sodium Chloride (Merrem Iv 500 Mg/Ns 50 Ml) 500 mg in 50 mls @ 100 mls/hr IVPB Q12 [facility]; Protocol Stop: 05/05/18 10:01 Last Admin: 04/30/18 23:01 Dose: 100 mls/hr Dextrose/Sodium Chloride (Dextrose 5%/0.9% Ns 1000 Ml) 1,000 mls @ 50 mls/hr IV .Q20H [facility] Last Admin: 04/30/18 13:10 Dose: 50 mls/hr Insulin Detemir (Levemir) 20 unit SC HS [facility] Last Admin: 04/30/18 23:01 Dose: 20 units Insulin Human Regular (Humulin R Low) 0 units SC ACHS [facility]; Protocol Last Admin: 04/30/18 22:30 Dose: Not Given Isosorbide Mononitrate (Imdur Er) 60 mg PO DAILY [facility] Last Admin: 04/30/18 09:42 Dose: 60 mg Labetalol HCl (Trandate) 200 mg PO TID [facility] Last Admin: 04/30/18 18:08 Dose: 200 mg Labetalol HCl (Trandate) 20 mg IV Q4 PRN PRN Reason: Other Levalbuterol HCl (Xopenex) 1.25 mg IH [id number] PRN PRN Reason: Shortness of Breath Last Admin: 04/27/18 20:01 Dose: 1.25 mg Linezolid (Zyvox) 600 mg PO BID [facility]; Protocol Stop: 05/05/18 10:01 Last Admin: 04/30/18 18:08 Dose: 600 mg Nifedipine (Procardia Xl) 60 mg PO QPM [facility] Last Admin: 04/29/18 17:45 Dose: 60 mg Pantoprazole Sodium (Protonix Ec Tab) 20 mg PO ACB [facility] Last Admin: 04/30/18 09:44 Dose: 20 mg Silver Sulfadiazine (Silvadene 1% 25 Gm) 0 gm TP BID [facility] Last Admin: 04/30/18 18:07 Dose: 25 gm Simethicone (Mylicon Chew Tab) 80 mg PO PCHS PRN PRN Reason: GI distress Last Admin: 04/27/18 23:16 Dose: 80 mg Vitamin B Complex/Vit C/Folic Acid (Nephro-Holland) 1 tab PO 0800 [facility] Last Admin: 04/30/18 09:43 Dose: 1 tab - Labs Labs: 04/30/18 06:00 05/01/18 06:35 PT 13.5 SECONDS (9.4-12.5) H 04/28/18 07:00 INR 1.17 04/28/18 07:00 APTT 26.6 Seconds (25.1-36.5) 04/28/18 07:00 - Constitutional Appears: Chronically Ill - Head Exam Head Exam: NORMAL INSPECTION - Respiratory Exam Respiratory Exam: Decreased Breath Sounds - Cardiovascular Exam Cardiovascular Exam: +S1, +S2 - GI/Abdominal Exam GI & Abdominal Exam: Soft. absent: Tenderness Assessment and Plan - Assessment and Plan (Free Text) Plan: Assessment abdominal wall cellulitis S/P small bowel obstruction in this patient with ventral wall hernia, S/P ventr al incarcerated hernia repair, adhesiolysis and revision of colostomy S/P acute coronary syndrome with NSTEMI COPD history of VRE UTI history of severe sepsis secondary to left medial thigh abscess, growing Proteus, S/P incision and drainage DM HTN CAD Unresectable rectal cancer S/P chemotherapy and radiation therapy S/P colostomy S/P Port-a-cath placement morbid obesity with BMI 50 obstructive sleep apnea history of pulmonary embolism S/P IVC filter placement Plan continue Zyvox and Merrem day 6 to complete 7-10 days and will continue to monitor clinically
--- NOTE | 2018-05-01 16:01 | CP.PCM.PN ---
Subjective - Date & Time of Evaluation Date of Evaluation: 05/01/18 Time of Evaluation: 09:30 - Subjective Subjective: Care Coordination Note: Pt. seen and examined in bed,. Pt. appears lethargic, NAD, responsive. RR easy and unlabored. Vital signs reviewed. Labs reviewed. CXR 04/30 resulted moderate vascular congestion. PE: Patient morbid obese. Lethargic, HEad and Neck normal, supple,NO JVD. Rt. CW Port noted Heart S1 S2 reg Lungs with diminished breath sounds. Abdomen large , soft, midline suture line, with some redness noted.,abdominal b christine noted. Generalized edema noted. A/P: 62 yr. old morbidly obese female with PMH SBO, ventral wall hernia with repair, colostomy, COPD, hx of VRE UTI, DM, Htn, CAD, unresectable rectal cancer s/p chemo and radiation, PE s/p IVC filter admitted with generalized weakness, altered mental status. AMS secondary to metabolic encephalopathy per Neuro, recommend Nuvigil , lethargy maybe secondary to OPIOD use, recommends holding all OPIODS and continue Nuvigil, recommends to encourage Bipap per pulmonology. Abdominal wall cellulitis, receiving Zyvox PO Merrem IV per ID, monitor CBC. Lethargy maybe secondary to underlying depression, Psych consult pending. SHELBI most likely seconday to decreased PO intake. Anemia, s/p transfusions PRBCs per Hematology/ Oncology. PT recommends [facility], however, patient not accepted back to [facility] for not participating in PT, awaiting repeat PT eval, awaiting acceptance to [facility]. Per Neuro appears more alert today, wants to monitor neuro status overnight, if remains improved will clear for DC to [facility] tommorow if have accepting facility. Objective - Vital Signs/Intake and Output Vital Signs (last 24 hours): Temp Pulse Resp BP Pulse Ox 97.8 F 108 H 19 187/84 H 98 05/01/18 06:00 05/01/18 15:18 05/01/18 06:00 05/01/18 15:19 05/01/18 06:00 Intake and Output: 05/01/18 05/01/18 06:59 18:59 Intake Total 500 Output Total 400 Balance 100 - Medications Medications: Current Medications Amlodipine Besylate (Norvasc) 10 mg PO DAILY [facility] Last Admin: 05/01/18 11:51 Dose: 10 mg Arformoterol Tartrate (Brovana) 15 mcg IH [id number] [facility] Last Admin: 05/01/18 07:25 Dose: 15 mcg Armodafinil (Nuvigil 250 Mg Tab) 250 mg PO DAILY [facility] Last Admin: 05/01/18 11:50 Dose: 250 mg Aspirin (Ecotrin) 81 mg PO DAILY [facility] Last Admin: 05/01/18 11:52 Dose: 81 mg Atorvastatin Calcium (Lipitor) 20 mg PO HS [facility] Last Admin: 04/30/18 23:02 Dose: 20 mg Darbepoetin Timothy (Aranesp) 25 mcg SC QWK [facility] Last Admin: 04/29/18 17:44 Dose: 25 mcg Darbepoetin Timothy (Aranesp) 100 mcg SC QWK [facility] Last Admin: 04/29/18 17:44 Dose: 100 mcg Docusate Sodium (Colace) 100 mg PO TID [facility] Last Admin: 05/01/18 11:50 Dose: 100 mg Enoxaparin Sodium (Lovenox) 30 mg SC DAILY [facility]; Protocol Last Admin: 05/01/18 11:48 Dose: 30 mg Ergocalciferol (Drisdol 50,000 Intl Units Cap) 1 cap PO Q7D [facility] Last Admin: 04/26/18 10:23 Dose: 1 cap Ferrous Gluconate (Fergon) 324 mg PO TID [facility] Last Admin: 05/01/18 11:52 Dose: 324 mg Furosemide (Lasix) 40 mg PO DAILY [facility] Last Admin: 05/01/18 11:52 Dose: 40 mg Hydralazine HCl (Apresoline) 100 mg PO TID [facility] Last Admin: 05/01/18 11:50 Dose: 100 mg Meropenem/Sodium Chloride (Merrem Iv 500 Mg/Ns 50 Ml) 500 mg in 50 mls @ 100 mls/hr IVPB Q12 [facility]; Protocol Stop: 05/05/18 10:01 Last Admin: 05/01/18 11:55 Dose: 100 mls/hr Insulin Detemir (Levemir) 20 unit SC [facility] Last Admin: 04/30/18 23:01 Dose: 20 units Insulin Human Regular (Humulin R Low) 0 units SC [facility]; Protocol Last Admin: 05/01/18 15:00 Dose: Not Given Isosorbide Mononitrate (Imdur Er) 60 mg PO DAILY [facility] Last Admin: 05/01/18 11:51 Dose: 60 mg Labetalol HCl (Trandate) 200 mg PO TID [facility] Last Admin: 05/01/18 15:00 Dose: Not Given Labetalol HCl (Trandate) 20 mg IV Q4 PRN PRN Reason: Other Last Admin: 05/01/18 15:18 Dose: 20 mg Levalbuterol HCl (Xopenex) 1.25 mg IH [id number] PRN PRN Reason: Shortness of Breath Last Admin: 04/27/18 20:01 Dose: 1.25 mg Linezolid (Zyvox) 600 mg PO BID [facility]; Protocol Stop: 05/05/18 10:01 Last Admin: 05/01/18 11:52 Dose: 600 mg Nifedipine (Procardia Xl) 60 mg PO QPM [facility] Last Admin: 04/29/18 17:45 Dose: 60 mg Pantoprazole Sodium (Protonix Ec Tab) 20 mg PO ACB [facility] Last Admin: 04/30/18 09:44 Dose: 20 mg Silver Sulfadiazine (Silvadene 1% 25 Gm) 0 gm TP BID [facility] Last Admin: 05/01/18 11:53 Dose: 1 gm Simethicone (Mylicon Chew Tab) 80 mg PO PCHS PRN PRN Reason: GI distress Last Admin: 04/27/18 23:16 Dose: 80 mg Thiamine HCl (Vitamin B1 Tab) 100 mg PO DAILY [facility] Last Admin: 05/01/18 15:00 Dose: Not Given Vitamin B Complex/Vit C/Folic Acid (Nephro-Holland) 1 tab PO 0800 [facility] Last Admin: 05/01/18 11:51 Dose: 1 tab - Labs Labs: 05/01/18 13:07 05/01/18 06:35 PT 13.5 SECONDS (9.4-12.5) H 04/28/18 07:00 INR 1.17 04/28/18 07:00 APTT 26.6 Seconds (25.1-36.5) 04/28/18 07:00
[2018-05-01] MEDS: Pantoprazole 20 mg EC Tab PO SCH (16:12)
[2018-05-01] MEDS ORDERED: Labetalol 5 mg/ml Inj 20ML IV STA (17:10)
--- NOTE | 2018-05-01 17:20 | CON ---
DATE: 05/01/2018 SUBJECTIVE: In short, the patient is 62-year-old Kiswahili-speaking female with multiple medical issues. The patient is morbidly obese. The patient had history of small bowel obstruction, recently surgery by Dr. Mckeon. The patient has history of hypertension, dyslipidemia, diabetes, sleep apnea, COPD, CHF. The patient was sent from the custodial due to increased lethargy. Psych consult was called for evaluation of altered mental status and possible depressive symptoms. This instructional writer had prolonged conversation with the patient, utilized voice translation system for interpretation[place] [id number]. The patient was not able to hold the interview due to the patient's medical issues. The patient had difficulties to complete her sentences, appears to be weak. The patient was also presented to be annoyed with all the questions. The patient said that she does not want anything from this instructional writer. We will respect that decision. The patient presented to be hypoactive, was delirious. The patient denied that she has any thoughts of harming herself or others, but she is afraid to . Besides that, the patient does not want to continue interview. PHYSICAL EXAMINATION: VITAL SIGNS: Seemed to be stable. Temperature 97.8, pulse is 100, blood pressure 176/66, respirations 19, oxygen saturation is 98. MEDICATIONS: Reviewed. The patient is on Norvasc, Brovana, Nuvigil, aspirin, Lipitor, Aranesp, Colace, Lovenox, Drisdol, Fergon, Lasix, insulin, Imdur, labetalol, Trandate, Xopenex, Zyvox, Merrem, Procardia, Protonix, Silvadene, Mylicon,and vitamin B complex. LABORATORY DATA: Labs reviewed. Most recent was from yesterday. Chemistry reviewed. Urinalysis reviewed. MENTAL STATUS EXAMINATION: The patient presented to be lethargic, was able to open her eyes. The patient knows that she is in the hospital. Mood described "I don't want anything from you." Thought process concrete. Thought content, the patient does not present to be psychotic or agitated, but lethargic and withdrawn. Insight and judgment seemed to be fair. Impulses are well controlled. IMPRESSION: Most likely, the patient has a multifactorial hypoactive delirium. No signs of depression. No signs of suicidality. PLAN: Address all of the medical issues. When medical issues are better, the patient most likely will be less lethargic. The patient does not want to have interview with this instructional writer, seems to be annoyed with the questions. We will respect that decision. The patient does not present to be in any imminent danger to self or others. This instructional writer will sign off. Should you have any questions, give me a call back or re-consult if the patient will be willing to be evaluated by psychiatrist. Kallie Lind MD [email or web address]
[2018-05-01] MEDS: NIFEdipine 60 mg ER Tab PO SCH (18:35)
--- NOTE | 2018-05-01 18:35 | PN ---
DATE: 05/01/2018 PULMONARY PROGRESS NOTE REFERRING PHYSICIAN: Elroy Florian MD SUBJECTIVE: She is lying in the bed, head at 45 degrees, on noninvasive ventilation. Night was unremarkable. Still sleepy and tired. No hemoptysis or hematemesis. No hematuria. No diarrhea. Colostomy working well. No leg swelling. OBJECTIVE: GENERAL: In no acute distress. VITAL SIGNS: Temperature is 98, heart rate is 96, respiratory rate is 26, blood pressure is 142/89, and pulse ox 98% on BiPAP and supplemental oxygen. HEENT: Moist mucous membrane. Crowded airway. NECK: Short thick neck. LUNGS: Has a scattered rhonchi. HEART: S1 and S2. ABDOMEN: Soft. Colostomy bag looks okay. Suture line looks okay. EXTREMITIES: There is no leg edema. NEUROLOGIC: Sleepy and arousable. MEDICATIONS: She is on hydralazine 100 mg three times a day, Aranesp 125 mcg subcutaneously weekly, Brovana inhaled twice a day, Colace 100 mg twice a day, vitamin D 50,000 units every 7 days, Ecotrin 81 mg daily, ferrous gluconate 324 mg three times a day, Imdur ER 60 mg daily, Lasix 40 mg daily, Levemir 20 units subcutaneously at bedtime, Lipitor 20 mg daily, Lovenox 30 mg subcutaneously daily, meropenem 500 mg every 12 hours, simethicone 80 mg p.c. at bedtime, Nephro vitamins daily, Norvasc 10 mg daily, Nuvigil 250 mg daily, Procardia XL 60 mg daily, Protonix 40 mg daily, labetalol mg every 4 hours p.r.n. also labetalol 200 mg p.o. three times a day, vitamin B 100 mg daily, and Zyvox 600 mg twice a day. LABORATORY DATA: Shows hemoglobin 9.5, hematocrit 31.1, WBC 8.2, and platelet count is 310. Sodium 141, potassium 4.4, chloride 112, bicarbonate 25, BUN 68, creatinine 1.9, glucose 132, and calcium is 8.3. AST 32, ALT 19, and alk phos is 141. ProBNP 13,500. Albumin is 2.4. Microbiology; blood culture, urine culture, there is no growth. Has a CAT scan of the head done yesterday which shows no new finding is unremarkable. IMPRESSION AND PLAN: Status post small bowel obstruction with hernia requiring laparotomy and hernia repair, relocation of colostomy, obstructive lung disease, obesity hypoventilation syndrome, noncompliant sometime, history of pulmonary embolism, deep venous thrombosis, morbid obesity, diabetes, hypertension, healthcare-associated sepsis, rectal carcinoma, and morbid obesity. Case discussed with the nursing staff, spoke to floor nurse practitioner in detail. May continue bilevel positive airway pressure while sleeping. May take off bilevel positive airway pressure while eating or sitting up. Continue daytime stimulant. She is on Nuvigil. Encourage p.o. intake. Bronchodilator. Fall precaution. May benefit from LTAC type of services. Thank you and we will follow with you. Pamela Ayala MD
[2018-05-01] MEDS: Levalbuterol 1.25 MG/3 ML Inhal Soln UD IH PRN (19:25)
[2018-05-01] MEDS: Insulin Detemir 100 units/ml Vial (Levemir) SC SCH (22:00)
--- NOTE | 2018-05-02 00:22 | PN ---
DATE: 05/01/2018 SUBJECTIVE: The patient is breathing comfortably. No chest pain. No shortness of breath. She is a little bit on the sleepy side, but she is little bit more awake, oriented to place and time, is in no distress. The patient did not take blood pressure medicine. Her appetite is down, and she is afebrile. PHYSICAL EXAMINATION: VITAL SIGNS: Temperature is 97, heart rate 89, blood pressure 142/89, respirations 18, and saturation 94%. The patient on BiPAP intermittently. HEAD AND NECK: Normal. No JVD. CHEST: Clear bilateral. Diminished breath sounds. CARDIAC: First sound and second sound normal. No murmur, rub, or gallop. There is systolic ejection murmur in the pulmonary area. ABDOMEN: Soft, obese. There are midline sutures, and colostomy seems intact. EXTREMITIES: Lower extremity edema below the knee. NEUROLOGIC: The patient moves all extremities, but generally weak. LABORATORY DATA: Shows white count 8.2, hemoglobin 9.5, hematocrit 31.1, and platelets 310. Chemistry shows sodium 141, potassium 4.4, chloride 112, bicarb 25, BUN 68, creatinine 1.9, and blood sugar 132. Her liver enzyme is normal except alk phos is 141. The patient's proBNP is 15,500. IMPRESSION AND PLAN: 1. Loss of appetite, etiology unclear. The patient had CT of the abdomen and pelvis which shows inflammatory in abdominal wall area. She had consult with Dr. Benitez. We will evaluate the patient for the appetite loss and also perirectal area inflammatory changes. Continue IV antibiotics and encourage p.o. intake. 2. Congestive heart failure, it's more right sided than the left. She does have diastolic heart failure. She does have pulmonary hypertension, moderate hypertension, explain how elevated BNP. 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 3. Chronic renal failure, seems better now with gentle hydration. 4. Status post bowel obstruction, reduction, and hernia repair, seems doing well, there is no vomiting. 5. Insulin-dependent diabetes, stable. 6. Generalized weakness, unclear etiology. 7. Sleepiness, could be due to multifactorial due to deconditioning, depression, also CO2 elevated, but it is in the below 50, could be a contributing factor. Recommendation, continue BiPAP, continue the Provigil or Nuvigil for mental status improvement. 8. Hypertension. The patient is noncompliant with the medicine. I advised taking medications. I did treat her myself with Ensure, and I advised her to take the medicine with some food. Encouraged p.o. intake, and she seems accepting these ideas. Continue current therapy. Continue inhaled bronchodilator. Follow up clinically. Repeat laboratories in the morning. We will see you on the psychiatric input. Continue IV Zyvox and meropenem. Elroy Florian MD
[2018-05-02 07:01] LABS: BASO # 0.03 K/mm3 (0.0-2.0); BASO % 0.3 % (0.0-3.0); EOS # 0.2 (0.0-0.7); GRAN # 6.57 (1.4-6.5); GRAN % 76.3 % (50.0-68.0); HEMOGLOBIN 9.9 g/dL (12.0-16.0); LYMPH # 1.4 (1.2-3.4); LYMPH % 15.8 % (22.0-35.0); MEAN CORPUSCULAR HEMOGLOBIN 26.8 pg (25.0-35.0); MEAN CORPUSCULAR HGB CONC 29.8 g/dl (31.0-37.0); MEAN PLATELET VOLUME 10.6 fl (7.0-11.0); MONO # 0.5 (0.1-0.6); MONO % 5.6 % (1.0-6.0); RBC 3.69 10^6/uL (3.5-6.1); WHITE BLOOD COUNT 8.6 10^3/uL (4.5-11.0)
[2018-05-02 07:12] LABS: CALCIUM 8.6 mg/dL (8.4-10.5)
[2018-05-02] MEDS: Arformoterol 15 mcg/2 ml Inh Sol IH SCH ×2 (07:23→19:52)
[2018-05-02] MEDS: Insulin Reg-LOW-Coverage SC SCH ×4 (08:36→22:16)
[2018-05-02] MEDS: Pantoprazole 20 mg EC Tab PO SCH (08:41)
[2018-05-02] MEDS: Multivitamin Vitamin B Complex (Nephro-Vite) Tab PO SCH (08:41)
--- NOTE | 2018-05-02 08:51 | CP.PCM.PN ---
Subjective - Date & Time of Evaluation Date of Evaluation: 05/02/18 Time of Evaluation: 07:20 - Subjective Subjective: Awake, alert,talking, no distress, lying in bed Reason for consultation and follow up: Cardiac evaluation of coronary artery disease, admitted for altered mental status Seen and examined by me and Dr. Guerrero Objective - Vital Signs/Intake and Output Vital Signs (last 24 hours): Temp Pulse Resp BP Pulse Ox 97.3 F L 103 H 18 185/73 H 95 05/01/18 16:41 05/01/18 18:36 05/01/18 16:41 05/02/18 05:57 05/01/18 16:41 - Medications Medications: Current Medications Amlodipine Besylate (Norvasc) 10 mg PO DAILY [facility] Last Admin: 05/01/18 11:51 Dose: 10 mg Arformoterol Tartrate (Brovana) 15 mcg IH [id number] [facility] Last Admin: 05/02/18 07:23 Dose: 15 mcg Armodafinil (Nuvigil 250 Mg Tab) 250 mg PO DAILY [facility] Last Admin: 05/01/18 11:50 Dose: 250 mg Aspirin (Ecotrin) 81 mg PO DAILY [facility] Last Admin: 05/01/18 11:52 Dose: 81 mg Atorvastatin Calcium (Lipitor) 20 mg PO HS [facility] Last Admin: 05/01/18 21:59 Dose: Not Given Darbepoetin Timothy (Aranesp) 25 mcg SC QWK [facility] Last Admin: 04/29/18 17:44 Dose: 25 mcg Darbepoetin Timothy (Aranesp) 100 mcg SC QWK [facility] Last Admin: 04/29/18 17:44 Dose: 100 mcg Docusate Sodium (Colace) 100 mg PO TID [facility] Last Admin: 05/01/18 18:37 Dose: Not Given Enoxaparin Sodium (Lovenox) 30 mg SC DAILY [facility]; Protocol Last Admin: 05/01/18 11:48 Dose: 30 mg Ergocalciferol (Drisdol 50,000 Intl Units Cap) 1 cap PO Q7D [facility] Last Admin: 04/26/18 10:23 Dose: 1 cap Ferrous Gluconate (Fergon) 324 mg PO TID [facility] Last Admin: 05/01/18 18:37 Dose: Not Given Furosemide (Lasix) 40 mg PO DAILY [facility] Last Admin: 05/01/18 11:52 Dose: 40 mg Hydralazine HCl (Apresoline) 10 mg IVP Q6 [facility] Last Admin: 05/02/18 05:57 Dose: 10 mg Insulin Detemir (Levemir) 20 unit SC HS [facility] Last Admin: 05/01/18 22:00 Dose: 20 units Insulin Human Regular (Humulin R Low) 0 units SC ACHS [facility]; Protocol Last Admin: 05/02/18 08:36 Dose: Not Given Isosorbide Mononitrate (Imdur Er) 60 mg PO DAILY [facility] Last Admin: 05/01/18 11:51 Dose: 60 mg Labetalol HCl (Trandate) 20 mg IV Q4 PRN PRN Reason: Other Last Admin: 05/01/18 15:18 Dose: 20 mg Levalbuterol HCl (Xopenex) 1.25 mg IH [id number] PRN PRN Reason: Shortness of Breath Last Admin: 05/01/18 19:25 Dose: 1.25 mg Nifedipine (Procardia Xl) 60 mg PO QPM [facility] Last Admin: 05/01/18 18:35 Dose: 60 mg Pantoprazole Sodium (Protonix Ec Tab) 20 mg PO ACB [facility] Last Admin: 05/02/18 08:41 Dose: 20 mg Silver Sulfadiazine (Silvadene 1% 25 Gm) 0 gm TP BID [facility] Last Admin: 05/01/18 18:38 Dose: 1 gm Simethicone (Mylicon Chew Tab) 80 mg PO PCHS PRN PRN Reason: GI distress Last Admin: 04/27/18 23:16 Dose: 80 mg Thiamine HCl (Vitamin B1 Tab) 100 mg PO DAILY [facility] Last Admin: 05/01/18 15:00 Dose: Not Given Vitamin B Complex/Vit C/Folic Acid (Nephro-Holland) 1 tab PO 0800 [facility] Last Admin: 05/02/18 08:41 Dose: 1 tab - Labs Labs: 05/02/18 06:30 05/02/18 06:30 PT 13.5 SECONDS (9.4-12.5) H 04/28/18 07:00 INR 1.17 04/28/18 07:00 APTT 26.6 Seconds (25.1-36.5) 04/28/18 07:00 - Constitutional Appears: Non-toxic, No Acute Distress - Head Exam Head Exam: NORMAL INSPECTION, NORMOCEPHALIC - Eye Exam Eye Exam: Normal appearance Pupil Exam: NORMAL ACCOMODATION - ENT Exam ENT Exam: Mucous Membranes Dry - Respiratory Exam Respiratory Exam: Decreased Breath Sounds, Clear to Ausculation Bilateral, NORMAL BREATHING PATTERN - Cardiovascular Exam Cardiovascular Exam: +S1, +S2 Additional comments: right chest criss cath - GI/Abdominal Exam GI & Abdominal Exam: Soft, Normal Bowel Sounds Additional comments: colostomy - Extremities Exam Additional comments: 2-3+ edema - Neurological Exam Neurological Exam: Alert, Awake, Oriented x3 - Psychiatric Exam Psychiatric exam: Normal Affect, Normal Mood - Skin Skin Exam: Dry, Normal Color, Warm Assessment and Plan - Assessment and Plan (Free Text) Assessment: A 62 year old morbidly obese female who was brought to the ER due to altered mental status. Recently was discharged from [facility] due to small bowel obstruction with resection by Dr. Mckeon. Patient is known to have rectal cancer in the past. with colostomy. History of coronary artery disease with stent of circumflex,hypertension, hyperlipidemia,diabetes, Sleep Apnea, COPD, CHF,history of DVT and PE. CT of head unremarkable, EKG showed NSR, Chest X ray showed moderate CHF however bilateral infiltrate. Recent ECHO LVEF normal.Cardiac status stable. Plan: Awake, alert, talking,no distress Denies chest pain or shortness of breath Heart rate controlled Uncontrolled blood pressure Hydralazine IV PRN Will start Clonidine patch Will start Eliquis today H/H stable On Norvasc 10 mg daily,ASA 81 mg daily,Lovenox 30 mg daily,Lasix 40 mg daily Hydralazine 100 mg TID,Imdur Er 60 mg daily,Labetolol 200 mg TID,Procardia 60 mg daily Continue antibiotics as ordered Continue current treatment Continue current medications Chart reviewed Will follow up Plan and treatment discussed with Dr. Guerrero
[2018-05-02] MEDS: Enoxaparin 30 mg Syringe SC SCH (09:38)
[2018-05-02] MEDS: Armodafinil 250 mg Tab PO SCH (09:39)
[2018-05-02] MEDS: Silver Sulfadiazine 1% Cream (25 gm) TP SCH ×2 (09:46→17:55)
--- NOTE | 2018-05-02 09:49 | PN ---
DATE: 05/02/2018 SUBJECTIVE: The patient is in bed, in no acute distress, nontoxic. PHYSICAL EXAMINATION: VITAL SIGNS: On exam, temperature is 97, blood pressure is 196/70, respiratory rate of 18 and heart rate of 103. HEENT: Unremarkable. NECK: Supple. LUNGS: Have decreased breath sounds. HEART: Normal S1 and S2. ABDOMEN: Soft, nontender. LABORATORY EXAMINATION: Reveals a white count of 8.6, hemoglobin of 9 and platelets of 314. Chemistries reveals a BUN of 64 and creatinine of 1.5. Urinalysis is noted. Microbiology reveals the blood cultures are negative and urine cultures are negative. MEDICATIONS: Review of orders reveals the patient to be on meropenem and Zyvox. Dr. Florian's note is reviewed from yesterday. ASSESSMENT AND PLAN: This is a 62-year-old female who has periods of confusion. She has had no fevers and was admitted with abdominal wall cellulitis which appears to be improved at this point. On exam as of this morning, the abdominal wall has resolved with a history of status post small bowel obstruction and a ventral wall hernia, ventral incarcerated hernia repair, adhesiolysis, revision of colostomy, history of acute coronary syndrome and non-ST elevation myocardial infarction, chronic obstructive lung disease, super morbid obesity with a body mass index over 50 and diabetes, hypertension, coronary artery disease and on day #7 of Zyvox and meropenem. The cellulitis has resolved. The patient's white count is normal. There has been no fevers documented. The patient is on Apresoline and concerned about the change of mental status and periods of confusion. We will discontinue the antibiotics at this point. Today is day #7 and with the resolution of the cellulitis and negative CAT scan, negative chest x-ray, negative cultures, at this point antibiotics is 7 days. No further benefit from the antibiotics at this point. The patient is at very high risk of developing nosocomial infections. We will discontinue the antibiotics and observe her closely. Lawrence Cheek MD
[2018-05-02 12:08] LABS: ARTERIAL BLOOD GAS HEMOGLOBIN 10.5 g/dL (11.7-17.4); ARTERIAL BLOOD GAS O2 CAPACITY 14.4 mL/dl (16-24); ARTERIAL BLOOD GAS O2 SAT 97.2 % (95-98); ARTERIAL BLOOD GAS PCO2 52 mm/Hg (35-45); ARTERIAL BLOOD GAS PH 7.29 (7.35-7.45); ARTERIAL BLOOD GAS TCO2 26.6 mmol.L (22-28)
--- NOTE | 2018-05-02 13:29 | CP.PCM.PN ---
Subjective - Date & Time of Evaluation Date of Evaluation: 05/02/18 Time of Evaluation: 13:27 - Subjective Subjective: Nephrology Consultation Note: Assessment: altered mental status: fluctuating SBO s/p ex lap Acute Kidney Injury (N17.9) likely pre-renal state left adrenal adenoma, Rt renal hyperdense cyst chronic hypercapnic respi failure Diabetic chronic Kidney Disease (E11.22) Hypertensive Chronic Kidney Disease (I12.9) Chronic Kidney Disease (N18.3) Stage 3 with 2.4 gm proteinuria (R80.9) likely due to DM/HTN/Obesity Anemia Vit D def morbid obesity, CAD s/p stent, COPD/SUMMER, rectal ca s/p colostomy Plan No acute need for renal replacement therapy at this time. HTN control on multiple meds; norvasc hydralazine labetalol nifedipine and imdur. hold ARB due to SHELBI. consider to d/c clonidine due her mental status and possible side effect of drowsiness Monitor Input/Output, daily weights and renal function with basic metabolic panel pulmonary ID heme and surgery following PRBC as needed. 2 units [id number]/16/18. d/w heme and okay to use KAVYA from heme perspective. on weekly aransep 125 mcg (04/29/18) supplement lytes as needed lasix 40 mg oral from today. stopped IVF due to pulm congestion on CXR and respi concerns. pt on BiPAP. will defer to pulmonary. ABG pending. Adrenal adenoma work up with plasma renin/aldosterone, plasma metanephrine NEGATIVE. outpt 1 mg dexa suppression test repeat renal sono in 6 months to assess her Rt renal cyst Dose meds/antibiotics for reduced GFR. Avoid fleets enema/magnesium based laxatives. Avoid nephrotoxins/NSAIDs/ iodinated contrast (unless needed emergently) Glycemic control Further work up/management as per primary team Thanks for allowing me to participate in care of your patient. Will follow patient with you. Please call if any Qs. had d/w team Dr Dae Dawn Office: [phone] Chief Complaint;AMS Reason for consult: Acute Kidney Injury, CKD 3 HPI: Pt is a 62 F with hx of diabetes Mellitus (15 years), hypertension (years), CKD 3 with baseline cr 1.2-1.3 with AKIs, morbid obesity, CAD s/p stent, COPD/SUMMER on CPAP, rectal ca s/p colostomy recently admitted for SBP s/p ex-lap, seen for SHELBI and HTN urgency came back with complaints of AMS and fever. renal consult for CKD and SHELBI management. pt has no urine complaints. Denies OTC/herbal meds or NSAIDs No recent iodinated contrast exposure. No obvious episodes of low BP. ROS: pt unable to provide. sleepy/lethargic, on BiPAP Physical Examination: General Appearance: comfortable,morbidly obese. ill appearing, on BiPAP Vitals reviewed and noted as below Head; Atraumatic, normocephalic ENT: dry mucosa EYES: Pupils are equal, round and reactive to light accommodation. Eye muscles and extraocular movement intact. Sclera is anicteric. Neck; supple no lymphadenopathy, no thyromegaly or bruit Lungs: Normal respiratory rate/effort. Breath sounds bilateral equal, diminished at bases but overall limited exam due to her obesity Heart: normal rate. s1s2 normal. No rub or gallop. Extremities: 2+ edema. No varicose veins Neurological: Patient is still sleepy but arousable Skin: Warm and dry. Normal turgor. No rash. Palpitation: Normal elasticity for age Abdomen: Abdomen is s/p ex lap soft Psych: unable MSK: no joint tenderness or swelling. Digits and nails normal, no deformity : kidney or bladder not palpable Labs/imaging reviewed. Past medical history, past surgical history, family history, social history, allergy reviewed and noted as below Family hx: no hx of CKD. Rest non-contributory PET CT 04/2017: neg CT abdomen: left adrenal adenoma 1.9 cm Rt kidney 2.6 cm hyperdense cyst UA 100 protein, neg for blood renin and roma low, metanehrine WNL PTH 133 Vit D 27 ANCA neg, K/L ratio WNL Objective - Vital Signs/Intake and Output Vital Signs (last 24 hours): Temp Pulse Resp BP Pulse Ox 98 F 70 20 156/70 H 97 05/02/18 06:00 05/02/18 11:40 05/02/18 06:00 05/02/18 11:40 05/02/18 06:00 Intake and Output: 05/02/18 05/02/18 06:59 18:59 Intake Total 340 Output Total 900 Balance -560 - Medications Medications: Current Medications Amlodipine Besylate (Norvasc) 10 mg PO DAILY [facility] Last Admin: 05/02/18 09:41 Dose: 10 mg Apixaban (Eliquis) 2.5 mg PO BID [facility]; Protocol Last Admin: 05/02/18 09:40 Dose: 2.5 mg Arformoterol Tartrate (Brovana) 15 mcg IH [id number] [facility] Last Admin: 05/02/18 07:23 Dose: 15 mcg Armodafinil (Nuvigil 250 Mg Tab) 250 mg PO DAILY [facility] Last Admin: 05/02/18 09:39 Dose: 250 mg Aspirin (Ecotrin) 81 mg PO DAILY [facility] Last Admin: 05/02/18 09:41 Dose: 81 mg Atorvastatin Calcium (Lipitor) 20 mg PO HS [facility] Last Admin: 05/01/18 21:59 Dose: Not Given Clonidine HCl (Catapres-Tts3 0.3 Mg/24 Hr) 1 patch TD Q7D@1000 [facility] Last Admin: 05/02/18 11:39 Dose: 1 patch Darbepoetin Timothy (Aranesp) 25 mcg SC QWK [facility] Last Admin: 04/29/18 17:44 Dose: 25 mcg Darbepoetin Timothy (Aranesp) 100 mcg SC QWK [facility] Last Admin: 04/29/18 17:44 Dose: 100 mcg Docusate Sodium (Colace) 100 mg PO TID [facility] Last Admin: 05/02/18 09:39 Dose: 100 mg Ergocalciferol (Drisdol 50,000 Intl Units Cap) 1 cap PO Q7D [facility] Last Admin: 04/26/18 10:23 Dose: 1 cap Ferrous Gluconate (Fergon) 324 mg PO TID [facility] Last Admin: 05/02/18 11:40 Dose: 324 mg Furosemide (Lasix) 40 mg PO DAILY [facility] Last Admin: 05/02/18 09:40 Dose: 40 mg Hydralazine HCl (Apresoline) 10 mg IVP Q6 [facility] Last Admin: 05/02/18 11:40 Dose: 10 mg Insulin Detemir (Levemir) 20 unit SC [facility] Last Admin: 05/01/18 22:00 Dose: 20 units Insulin Human Regular (Humulin R Low) [address] [facility]; Protocol Last Admin: 05/02/18 11:58 Dose: 1 unit Isosorbide Mononitrate (Imdur Er) 60 mg PO DAILY [facility] Last Admin: 05/02/18 09:38 Dose: 60 mg Labetalol HCl (Trandate) 20 mg IV Q4 PRN PRN Reason: Other Last Admin: 05/01/18 15:18 Dose: 20 mg Levalbuterol HCl (Xopenex) 1.25 mg IH [id number] PRN PRN Reason: Shortness of Breath Last Admin: 05/01/18 19:25 Dose: 1.25 mg Nifedipine (Procardia Xl) 60 mg PO QPM [facility] Last Admin: 05/01/18 18:35 Dose: 60 mg Pantoprazole Sodium (Protonix Ec Tab) 20 mg PO ACB [facility] Last Admin: 05/02/18 08:41 Dose: 20 mg Silver Sulfadiazine (Silvadene 1% 25 Gm) 0 gm TP BID [facility] Last Admin: 05/02/18 09:46 Dose: 25 gm Simethicone (Mylicon Chew Tab) 80 mg PO PCHS PRN PRN Reason: GI distress Last Admin: 04/27/18 23:16 Dose: 80 mg Thiamine HCl (Vitamin B1 Tab) 100 mg PO DAILY [facility] Last Admin: 05/02/18 09:40 Dose: 100 mg Vitamin B Complex/Vit C/Folic Acid (Nephro-Holland) 1 tab PO 0800 [facility] Last Admin: 05/02/18 08:41 Dose: 1 tab - Labs Labs: 05/02/18 06:30 05/02/18 06:30 PT 13.5 SECONDS (9.4-12.5) H 04/28/18 07:00 INR 1.17 04/28/18 07:00 APTT 26.6 Seconds (25.1-36.5) 04/28/18 07:00
[2018-05-02] MEDS: NIFEdipine 60 mg ER Tab PO SCH ×2 (17:51→17:52)
--- NOTE | 2018-05-02 18:29 | PN ---
DATE: 05/02/2018 REASON FOR CONSULTATION: Altered mental status, coronary artery disease, morbid obesity and renal insufficiency. This note is an addition to dictated by nurse practitioner, Tiffanie Osborne. The patient is lying flat, not in apparent distress. History as mentioned, morbid obesity, admitted with altered mental status, history of small bowel obstruction, recently status post resection and end-to-end anastomosis, history of rectal cancer, history of colostomy, history of coronary artery disease, history of the stent in the circumflex, hypertension, hyperlipidemia, and morbid obesity. Recent echo shows preserved LV function. History of DVT and PE. LABORATORY DATA: Hemoglobin 9.9, hematocrit 33.2 , BUN 64, and creatinine 1.5. RECOMMENDATION: Continue current treatment as mentioned yesterday. The patient needs to be restarted anticoagulation because of history of DVT and PE. Continue hydralazine for blood pressure. Continue clonidine patch #3. The blood pressure is relatively stable. Continue aspirin and continue Eliquis 2.5 mg p.o. b.i.d. started today. We will follow with you. Overall, the patient's condition is critical. Long-term prognosis is guarded. Thank you Dr. Florian for providing us the opportunity in taking care of the patient, Ismael Vasquez. Pamela Guerrero MD
[2018-05-02] MEDS: Insulin Detemir 100 units/ml Vial (Levemir) SC SCH (22:31)
[2018-05-02] MEDS: Morphine 2 mg/ml ISec IVP PRN (23:37)
--- NOTE | 2018-05-02 23:46 | PN ---
DATE: 05/02/2018 This is [facility]'s hospital visit on the medical floor. For Dr. Faye. SUBJECTIVE: The patient is a 62-year-old female, sees Dr. Faye for history of rectal cancer, which is unresectable, status post colostomy revision recently with hernia repair with the patient admitted for mental status change, now seen lying awake in bed, reporting that her pain is still considerable. She is noncompliant with her BiPAP, but in the hospital she is tolerating it. With this, the patient otherwise is reporting that her pain is not addressing her pain; however, the patient was lethargic on a clonidine patch, which has since then taken off with discretion needed in her overall care regarding her medication selection. The patient is also recently transfused for symptomatic anemia with good effect. PHYSICAL EXAMINATION VITAL SIGNS: Temperature 97.7, pulse 91, respirations 20, blood pressure 162/69 and pulse ox 98%. HEENT: Unremarkable. Oxygen is on. NECK: Supple. HEART: Regular rate. LUNGS: Decreased breath sounds. Scattered rhonchi. ABDOMEN: Soft. Viable colostomy with recent surgical scars, healing well. No signs of infection. EXTREMITIES: Chronic faint +1 edema with feet and hands. NEUROLOGIC: Lethargic, but arousable. LABORATORY DATA: The patient's labs were done. White blood cell count of 8.6, hemoglobin of 9.9, hematocrit of 33.2, platelet count of 314,000 with a chem metabolic panel showing a BUN of 64, creatinine of 1.5 for which she is seeing the range technician. ASSESSMENT: For this patient is that of rectal adenocarcinoma, status post colostomy revision, history of deep venous thrombosis, pulmonary embolus, symptomatic anemia status post transfusion, diabetes mellitus, hypertension, morbid obesity, chronic kidney disease, hypercoagulable state, and history of myocardial infarction. PLAN: For this patient after conservation with Dr. Faye is to continue her present medical regimen. Upon review of her medication, it appears that her clonidine patch has been restarted. We will ask Dr. Dawn, range technician to make recommendation regarding her blood pressure medications. After review his note, he recommended considering discontinuing clonidine due to mental status changes. We will his advise with other recommendations to be implemented as indicated. We will also give low dose morphine for her severe pain and monitor clinically and with labs. This is a complex patient with a comprehensive medically necessary and appropriate visit carried out in excess of 30 minutes with the patient's questions answered to her satisfaction. Zuhair Herrera MD
--- NOTE | 2018-05-03 00:16 | PN ---
DATE: 05/02/2018 REFERRING PHYSICIAN: Elroy Florian MD SUBJECTIVE: She is much more awake and alert, still having generalized body aches and pain. On nasal cannula oxygen. No cough. No sputum production. No chest pain. No nausea. Still has, at the incision site, some discomfort. Colostomy working well. No leg swelling. OBJECTIVE: GENERAL: In no acute distress. VITAL SIGNS: Temperature is 98, heart rate is 93, respiratory rate is 20, blood pressure 145/61, pulse ox 97% on nasal cannula. HEENT: Moist mucous membranes. Crowded airway. Mallampati score is 4. NECK: Supple. No JVD. LUNGS: Fair airflow with some rhonchi. HEART: S1 and S2. ABDOMEN: Incision site looks okay. Mild erythema. Colostomy draining well. EXTREMITIES: There is no edema. NEUROLOGIC: Awake and alert. Follows simple command. MEDICATIONS: She is on hydralazine 10 mg every 6 hours, Aranesp 125 mcg subcu weekly, Brovana inhaler twice a day, clonidine 0.3 mg patch weekly, Colace 100 mg three times a day, vitamin D 50,000 units every 7 days, Ecotrin 81 mg daily, Eliquis 2.5 mg twice a day, ferrous gluconate 325 mg three times a day, insulin coverage, Imdur ER 60 mg daily, Lasix 40 mg daily, Lipitor 20 mg at bedtime, simethicone 80 mg p.c. at bedtime, Nephro vitamins daily, Norvasc 10 mg daily, Nuvigil 250 mg daily, Procardia XL 60 mg daily, Protonix 20 mg daily, labetalol 20 mg every 4 hours p.r.n. and 200 mg every 8 hours around the clock, vitamin B1 100 mg daily, Xopenex 1.25 mg every 6 hours, Zofran on a p.r.n. basis. LABORATORY DATA: Shows hemoglobin 9.9, hematocrit 33.9, WBC 8.6, platelet count is 314. Had ABG done today, shows a pH of 7.29, pCO2 of 52, O2 of 72, this is on nasal cannula oxygen. Sodium 144, potassium 4.1, chloride 103, bicarbonate 27, BUN 64, creatinine 1.5, glucose 135, calcium 8.6. MICROBIOLOGY: Blood culture and urine culture, there is no growth. IMPRESSION AND PLAN: Status post small bowel obstruction requiring herniectomy with relocation of colostomy, history of rectal carcinoma in the remote past, obesity hypoventilation syndrome, pulmonary embolism, deep venous thrombosis , morbid obesity, diabetes, hypertension, healthcare-associated sepsis. From pulmonary point of view, she is improving. Continue to encourage BiPAP while sleeping. Keep head at 45 degrees. Daytime stimulant. Gastric prophylaxis. Anticoagulation. Will benefit from therapy. Thank you and we will follow with you. Pamela Ayala MD
[2018-05-03] MEDS: Morphine 2 mg/ml ISec IVP PRN (04:17)
--- NOTE | 2018-05-03 05:55 | CP.PCM.PN ---
Subjective - Date & Time of Evaluation Date of Evaluation: 05/03/18 Time of Evaluation: 06:35 - Subjective Subjective: No distress, lying in bed, lethargic but open eyes to verbal stimuli Reason for consultation and follow up: Cardiac evaluation of coronary artery disease, admitted for altered mental status Seen and examined by me and Dr. Guerrero Objective - Vital Signs/Intake and Output Vital Signs (last 24 hours): Temp Pulse Resp BP Pulse Ox 97.7 F 91 H 20 169/64 H 98 05/02/18 20:00 05/03/18 05:12 05/02/18 20:00 05/03/18 05:12 05/02/18 20:00 Intake and Output: 05/02/18 05/03/18 18:59 06:59 Intake Total 200 Output Total 500 Balance -300 - Medications Medications: Current Medications Acetaminophen (Tylenol 325mg Tab) 650 mg PO Q4H PRN PRN Reason: Pain, Mild (1-3) Amlodipine Besylate (Norvasc) 10 mg PO DAILY [facility] Last Admin: 05/02/18 09:41 Dose: 10 mg Apixaban (Eliquis) 2.5 mg PO BID [facility]; Protocol Last Admin: 05/02/18 17:50 Dose: 2.5 mg Arformoterol Tartrate (Brovana) 15 mcg IH [id number] [facility] Last Admin: 05/02/18 19:52 Dose: 15 mcg Armodafinil (Nuvigil 250 Mg Tab) 250 mg PO DAILY [facility] Last Admin: 05/02/18 09:39 Dose: 250 mg Aspirin (Ecotrin) 81 mg PO DAILY [facility] Last Admin: 05/02/18 09:41 Dose: 81 mg Atorvastatin Calcium (Lipitor) 20 mg PO HS [facility] Last Admin: 05/02/18 21:31 Dose: 20 mg Clonidine HCl (Catapres-Tts3 0.3 Mg/24 Hr) 1 patch TD Q7D@1000 [facility] Last Admin: 05/02/18 11:39 Dose: 1 patch Darbepoetin Timothy (Aranesp) 25 mcg SC QWK [facility] Last Admin: 04/29/18 17:44 Dose: 25 mcg Darbepoetin Timothy (Aranesp) 100 mcg SC QWK [facility] Last Admin: 04/29/18 17:44 Dose: 100 mcg Docusate Sodium (Colace) 100 mg PO TID [facility] Last Admin: 05/02/18 17:51 Dose: 100 mg Ergocalciferol (Drisdol 50,000 Intl Units Cap) 1 cap PO Q7D [facility] Last Admin: 04/26/18 10:23 Dose: 1 cap Ferrous Gluconate (Fergon) 324 mg PO DAILY JR Furosemide (Lasix) 40 mg PO DAILY [facility] Last Admin: 05/02/18 09:40 Dose: 40 mg Hydralazine HCl (Apresoline) 10 mg IVP Q6 [facility] Last Admin: 05/03/18 05:12 Dose: 10 mg Insulin Detemir (Levemir) 20 unit SC HS [facility] Last Admin: 05/02/18 22:31 Dose: 20 units Insulin Human Regular (Humulin R Low) 0 units SC [facility]; Protocol Last Admin: 05/02/18 22:16 Dose: Not Given Isosorbide Mononitrate (Imdur Er) 60 mg PO DAILY [facility] Last Admin: 05/02/18 09:38 Dose: 60 mg Labetalol HCl (Trandate) 20 mg IV Q4 PRN PRN Reason: Other Last Admin: 05/01/18 15:18 Dose: 20 mg Labetalol HCl (Trandate) 200 mg PO TID [facility] Last Admin: 05/02/18 17:50 Dose: 200 mg Levalbuterol HCl (Xopenex) 1.25 mg IH [id number] PRN PRN Reason: Shortness of Breath Last Admin: 05/01/18 19:25 Dose: 1.25 mg Morphine Sulfate (Morphine) 1 mg IVP Q4H PRN PRN Reason: Pain, severe (8-10) Last Admin: 05/03/18 04:17 Dose: 1 mg Nifedipine (Procardia Xl) 60 mg PO QPM [facility] Last Admin: 05/02/18 17:52 Dose: 60 mg Ondansetron HCl (Zofran Inj) 4 mg IVP Q4H PRN PRN Reason: Nausea/Vomiting Last Admin: 05/02/18 14:29 Dose: 4 mg Pantoprazole Sodium (Protonix Ec Tab) 20 mg PO ACB [facility] Last Admin: 05/02/18 08:41 Dose: 20 mg Silver Sulfadiazine (Silvadene 1% 25 Gm) 0 gm TP BID [facility] Last Admin: 05/02/18 17:55 Dose: 25 gm Simethicone (Mylicon Chew Tab) 80 mg PO HS PRN PRN Reason: GI distress Last Admin: 04/27/18 23:16 Dose: 80 mg Tramadol HCl (Ultram) 50 mg PO TID [facility] Vitamin B Complex/Vit C/Folic Acid (Nephro-Holland) 1 tab PO 0800 [facility] Last Admin: 05/02/18 08:41 Dose: 1 tab - Labs Labs: 05/02/18 06:30 05/02/18 06:30 PT 13.5 SECONDS (9.4-12.5) H 04/28/18 07:00 INR 1.17 04/28/18 07:00 APTT 26.6 Seconds (25.1-36.5) 04/28/18 07:00 - Constitutional Appears: Non-toxic, No Acute Distress - Head Exam Head Exam: NORMAL INSPECTION, NORMOCEPHALIC - Eye Exam Eye Exam: Normal appearance Pupil Exam: NORMAL ACCOMODATION - ENT Exam ENT Exam: Mucous Membranes Dry, Normal Exam - Respiratory Exam Respiratory Exam: Decreased Breath Sounds, Clear to Ausculation Bilateral, NORMAL BREATHING PATTERN - Cardiovascular Exam Cardiovascular Exam: +S1, +S2 - GI/Abdominal Exam GI & Abdominal Exam: Soft, Normal Bowel Sounds Additional comments: colostomy - Extremities Exam Additional comments: 2+edema - Neurological Exam Additional comments: lethargic but easily awaken - Psychiatric Exam Psychiatric exam: Normal Affect, Normal Mood - Skin Skin Exam: Dry, Normal Color, Warm Assessment and Plan - Assessment and Plan (Free Text) Assessment: A 62 year old morbidly obese female who was brought to the ER due to altered mental status. Recently was discharged from [facility] due to small bowel obstruction with resection by Dr. Mckeon. Patient is known to have rectal cancer in the past. with colostomy. History of coronary artery disease with stent of circumflex,hypertension, hyperlipidemia,diabetes, Sleep Apnea, COPD, CHF,history of DVT and PE. CT of head unremarkable, EKG showed NSR, Chest X ray showed moderate CHF however bilateral infiltrate. Recent ECHO LVEF normal.Cardiac status stable.Uncontrolled blood pressure. Plan: Lethargic,but easily awaken, responds to verbal commands,no distress Denies chest pain or shortness of breath Heart rate controlled Uncontrolled blood pressure Hydralazine IV PRN Started Clonidine patch yesterday On Norvasc 10 mg daily,ASA 81 mg daily,Lovenox 30 mg daily,Lasix 40 mg daily Hydralazine 100 mg TID,Imdur Er 60 mg daily,Labetolol 200 mg TID,Procardia 60 mg daily Continue antibiotics as ordered Adrenal work up in progress Continue current treatment Continue current medications Chart reviewed Will follow up Plan and treatment discussed with Dr. Guerrero
[2018-05-03] MEDS: Arformoterol 15 mcg/2 ml Inh Sol IH SCH ×2 (07:56→20:30)
--- NOTE | 2018-05-03 08:15 | CP.PCM.PCO ---
Physician Communication Note - Physician Communication Note Physician Communication Note: cont silvadene to midline wound, leave donita/sutures
[2018-05-03] MEDS ORDERED: Morphine 4 mg/ml ISec IVP PRN (08:25)
[2018-05-03] MEDS: Insulin Reg-LOW-Coverage SC SCH ×4 (08:31→22:38)
[2018-05-03] MEDS: Pantoprazole 20 mg EC Tab PO SCH (08:50)
[2018-05-03] MEDS: Multivitamin Vitamin B Complex (Nephro-Vite) Tab PO SCH (08:50)
[2018-05-03] MEDS: Ergocalciferol 50,000 Intl Units Cap PO SCH (08:50)
--- NOTE | 2018-05-03 09:00 | CP.PCM.CON ---
History of Present Illness - History of Present Illness History of Present Illness: Gastroenterology Fellow/PGY6 Consult Note 62 year old female with PMH of HTN, DVT/PE, CAD, CHF, and rectal carcinoma s/p chemoradiation and loop colostomy complicated by recent discharge due to SBO 2/2 ely-stomal hernia s/p repair with colostomy revision to end colostomy and creation of second mucous fistula presenting with altered mental status. Active treatment of weakness 2/2 to toxic metabolic encephalopathy in setting of opi oids and BiPAP noncompliance on neurology evaluation, SHELBI, and anemia s/p 2 U pRBCs. GI consultation for loss of appetite and review of CT A/P for possible ely-rectal inflammatory changes. Patient states she notes improving weakness today. Admits to improving abdominal soreness with recent surgeries for SBO. Notes loss of appetite due to weakness. Nursing notes patient refused BiPAP overnight. Family History- denies stomach cancer, colon cancer Surgical History- loop colostomy s/p ely-stomal hernia repair with colostomy revision to end colostomy and creation of second mucous fistula , appendectomy, cardiac stents Social History- denies tobacco, ETOH, or illicit drug use Review of Systems - Review of Systems Review of Systems: 12-point review of systems negative except for as above Past Patient History - Infectious Disease Hx of Infectious Diseases: None - Tetanus Immunizations Tetanus Immunization: Unknown - Past Social History Smoking Status: Never Smoked - CARDIAC Hx Hypercholesterolemia: Yes (HLD,) Hx Hypertension: Yes - PULMONARY Hx Chronic Obstructive Pulmonary Disease (COPD): Yes - NEUROLOGICAL Hx Neurological Disorder: Yes Hx Dizziness: Yes - HEENT Hx Macular Degeneration: No - RENAL Hx Renal Failure: Yes - ENDOCRINE/METABOLIC Hx Diabetes Mellitus Type 2: Yes - HEMATOLOGICAL/ONCOLOGICAL Hx Blood Disorders: Yes Hx Anemia: Yes - INTEGUMENTARY Hx Dermatological Problems: No - MUSCULOSKELETAL/RHEUMATOLOGICAL Hx Falls: No - GASTROINTESTINAL Hx Gastrointestinal Disorders: Yes (RECTAL CA WITH COLOSTOMY,GI BLEED) Hx Colostomy: Yes Hx Gastroesophageal Reflux: Yes - GENITOURINARY/GYNECOLOGICAL Hx Genitourinary Disorders: Yes (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,UTI) - PSYCHIATRIC Hx Psychophysiologic Disorder: Yes Hx Anxiety: Yes Hx Substance Use: No - SURGICAL HISTORY Hx Appendectomy: Yes Hx Coronary Stent: Yes Hx Vascular Access Device: Yes Other/Comment: colostomy - ANESTHESIA Hx Anesthesia: Yes Hx Anesthesia Reactions: No Hx Malignant Hyperthermia: No Meds Allergies/Adverse Reactions: Allergies Allergy/AdvReac Type Severity Reaction Status Date / Time No Known Allergies Allergy Verified 04/08/18 21:16 - Medications Medications: Current Medications Acetaminophen (Tylenol 325mg Tab) 650 mg PO Q4H PRN PRN Reason: Pain, Mild (1-3) Amlodipine Besylate (Norvasc) 10 mg PO DAILY [facility] Last Admin: 05/02/18 09:41 Dose: 10 mg Apixaban (Eliquis) 2.5 mg PO BID [facility]; Protocol Last Admin: 05/02/18 17:50 Dose: 2.5 mg Arformoterol Tartrate (Brovana) 15 mcg IH [id number] [facility] Last Admin: 05/03/18 07:56 Dose: 15 mcg Armodafinil (Nuvigil 250 Mg Tab) 250 mg PO DAILY [facility] Last Admin: 05/02/18 09:39 Dose: 250 mg Aspirin (Ecotrin) 81 mg PO DAILY [facility] Last Admin: 05/02/18 09:41 Dose: 81 mg Atorvastatin Calcium (Lipitor) 20 mg PO HS [facility] Last Admin: 05/02/18 21:31 Dose: 20 mg Clonidine HCl (Catapres-Tts3 0.3 Mg/24 Hr) 1 patch TD Q7D@1000 [facility] Last Admin: 05/02/18 11:39 Dose: 1 patch Darbepoetin Timothy (Aranesp) 25 mcg SC QWK [facility] Last Admin: 04/29/18 17:44 Dose: 25 mcg Darbepoetin Timothy (Aranesp) 100 mcg SC QWK [facility] Last Admin: 04/29/18 17:44 Dose: 100 mcg Docusate Sodium (Colace) 100 mg PO TID [facility] Last Admin: 05/02/18 17:51 Dose: 100 mg Ergocalciferol (Drisdol 50,000 Intl Units Cap) 1 cap PO Q7D [facility] Last Admin: 04/26/18 10:23 Dose: 1 cap Ferrous Gluconate (Fergon) 324 mg PO DAILY [facility] Furosemide (Lasix) 40 mg PO DAILY [facility] Last Admin: 05/02/18 09:40 Dose: 40 mg Hydralazine HCl (Apresoline) 10 mg IVP Q6 [facility] Last Admin: 05/03/18 05:12 Dose: 10 mg Insulin Detemir (Levemir) 20 unit SC [facility] Last Admin: 05/02/18 22:31 Dose: 20 units Insulin Human Regular (Humulin R Low) 0 units SC [facility]; Protocol Last Admin: 05/03/18 08:31 Dose: Not Given Isosorbide Mononitrate (Imdur Er) 60 mg PO DAILY [facility] Last Admin: 05/02/18 09:38 Dose: 60 mg Labetalol HCl (Trandate) 20 mg IV Q4 PRN PRN Reason: Other Last Admin: 05/01/18 15:18 Dose: 20 mg Labetalol HCl (Trandate) 200 mg PO TID [facility] Last Admin: 05/02/18 17:50 Dose: 200 mg Levalbuterol HCl (Xopenex) 1.25 mg IH [id number] PRN PRN Reason: Shortness of Breath Last Admin: 05/01/18 19:25 Dose: 1.25 mg Morphine Sulfate (Morphine) 3 mg IVP Q6 PRN PRN Reason: Pain, severe (8-10) Nifedipine (Procardia Xl) 60 mg PO QPM [facility] Last Admin: 05/02/18 17:52 Dose: 60 mg Ondansetron HCl (Zofran Inj) 4 mg IVP Q4H PRN PRN Reason: Nausea/Vomiting Last Admin: 05/02/18 14:29 Dose: 4 mg Pantoprazole Sodium (Protonix Ec Tab) 20 mg PO ACB [facility] Last Admin: 05/02/18 08:41 Dose: 20 mg Silver Sulfadiazine (Silvadene 1% 25 Gm) 0 gm TP BID [facility] Last Admin: 05/02/18 17:55 Dose: 25 gm Simethicone (Mylicon Chew Tab) 80 mg PO PCHS PRN PRN Reason: GI distress Last Admin: 04/27/18 23:16 Dose: 80 mg Tramadol HCl (Ultram) 50 mg PO Q6H PRN PRN Reason: Pain, moderate (4-7) Vitamin B Complex/Vit C/Folic Acid (Nephro-Holland) 1 tab PO 0800 [facility] Last Admin: 05/02/18 08:41 Dose: 1 tab Physical Exam - Constitutional Appears: Non-toxic, No Acute Distress, Chronically Ill - Head Exam Head Exam: ATRAUMATIC, NORMOCEPHALIC - Eye Exam Eye Exam: EOMI, PERRL Pupil Exam: PERRL. absent: Miosis, Mydriatic - ENT Exam ENT Exam: Mucous Membranes Moist, Normal Oropharynx - Neck Exam Neck exam: Positive for: Full Rom, Normal Inspection - Respiratory Exam Respiratory Exam: Clear to Auscultation Bilateral. absent: Rales, Rhonchi, Wheezes - Cardiovascular Exam Cardiovascular Exam: RRR, +S1, +S2. absent: Gallop, Rubs - GI/Abdominal Exam GI & Abdominal Exam: Normal Bowel Sounds, Soft, Tenderness. absent: Distended, Firm, Guarding, Organomegaly, Rebound, Rigid Additional comments: LUQ and LLQ fistulas with dressing - pink hue, C/D/I, Right mid abdomen stoma with colostomy bag with liquid brown stool, pink hue, midline donita with ointment dressing without dehiscence - Extremities Exam Additional comments: chronic lymphedema - Neurological Exam Neurological exam: Alert - Psychiatric Exam Psychiatric exam: Normal Affect, Normal Mood - Skin Skin Exam: Dry, Intact, Normal Color, Warm Results - Vital Signs Recent Vital Signs: Last Vital Signs Temp 97.8 F 05/03/18 06:00 Pulse 91 H 05/03/18 06:00 Resp 20 05/03/18 06:00 BP 157/60 H 05/03/18 06:00 Pulse Ox 96 05/03/18 06:00 - Labs Result Diagrams: 05/02/18 06:30 05/02/18 06:30 Labs: Laboratory Results - last 24 hr 05/02/18 05/02/18 05/02/18 11:19 12:00 16:35 pCO2 52 H pO2 72.0 L HCO3 25.0 ABG pH 7.29 L ABG Total CO2 26.6 ABG O2 Saturation 97.2 ABG O2 Content 14.0 L ABG Base Excess -2.0 ABG Hemoglobin 10.5 L ABG Carboxyhemoglobin 2.2 H POC ABG HHb (Measured) 2.7 ABG Methemoglobin 1.0 ABG O2 Capacity 14.4 L Hgb O2 Saturation 94.1 L FiO2 30.0 POC Glucose (mg/dL) 155 H 153 H 05/02/18 05/03/18 21:09 00:33 pCO2 pO2 HCO3 ABG pH ABG Total CO2 ABG O2 Saturation ABG O2 Content ABG Base Excess ABG Hemoglobin ABG Carboxyhemoglobin POC ABG HHb (Measured) ABG Methemoglobin ABG O2 Capacity Hgb O2 Saturation FiO2 POC Glucose (mg/dL) 152 H 174 H Assessment & Plan - Assessment and Plan (Free Text) Assessment: 62 year old female with PMH of HTN, DVT/PE, CAD, CHF, and rectal carcinoma s/p chemoradiation and loop colostomy complicated by recent discharge due to SBO 2/2 ely-stomal hernia s/p repair with colostomy revision to end colostomy and creation of second mucous fistula presenting with altered mental status. Active treatment of weakness 2/2 to toxic metabolic encephalopathy in setting of opioids and BiPAP noncompliance on neurology evaluation, SHELBI, and anemia s/p 2 U pRBCs. GI consultation for loss of appetite and review of CT A/P without concerning signs of ely-rectal inflammation. Plan: -improving appetite -tolerated most of dinner yesterday -recent discharge with surgical intervention for SBO -encourage oral hydration and nutrient intake -continue nutritional supplements -supportive care- H2 joseph and anti-emetics PRN -deconditioning- continue physical therapy -minimize opioid use for improved mentation -encourage compliance to BiPAP -will follow clinical course
--- NOTE | 2018-05-03 10:52 | CP.PCM.PN ---
Subjective - Date & Time of Evaluation Date of Evaluation: 05/03/18 Time of Evaluation: 08:15 - Subjective Subjective: Luan De Paz-Internal Medicine Resident- Hematology Oncology Progress Note Subjective: Patient seen and examined at bedside. No acute events overnight. Patient is awake, alert, responds to verbal stimuli, and follows commands. Admits to baseline abdominal pain. Offers no new complaints at this time. Denies fever, chills, chest pain, nausea/vomiting. 12 Point ROS negative except as indicated in HPI Physical Examination: - Constitutional Appears: No Acute Distress - Head Exam Head Exam: ATRAUMATIC, NORMOCEPHALIC - Eye Exam Eye Exam: EOMI, Normal appearance - ENT Exam ENT Exam: Mucous Membranes Moist - Neck Exam Neck exam: Positive for: Full Rom, Normal Inspection. Negative for: Lymphadenopathy, Meningismus, Tenderness, Thyromegaly - Respiratory Exam Respiratory Exam: Diminished breath sounds bilateral lower lobes. absent: Accessory Muscle Use, Decreased Breath Sounds, Rales, Rhonchi, Wheezes, Respiratory Distress - Cardiovascular Exam Cardiovascular Exam: REGULAR RHYTHM, RRR, +S1, +S2. absent: Bradycardia, Tachycardia - GI/Abdominal Exam GI & Abdominal Exam: obese, soft, ostomy right mid abdomen - Extremities Exam Extremities exam: negative for clubbing, cyanosis - Neurological Exam Neurological exam: Awake, Alert, Oriented x3 - Psychiatric Exam Psychiatric exam: Normal Affect, Normal Mood - Skin Skin Exam: Dry, Intact, Warm Assessment and Plan: Patient is a 62 year old female with a past medical history significant for rectal adenocarcinoma s/p [employer] and loop colostomy, CAD s/p GLORIA, CHF, DM2, HTN, CKD, and DVT/PE on Eliquis who was admitted for evaluation and treatment of al tered mental status. Heme/onc is consulted for management of elevated ptt. Elevated PTT - resolved - likely false reading x 1 Rectal Adenocarcinoma - pain control- recommend Dilaudid over morphine as half life is shorter and is hepatically metabolized Anemia - H and H stable ~ 9.9 - s/p transfuse 2 units pRBCS - goal Hgb 10 in light of cardiac issues Patient case discussed with and plan approved by attending physician, Dr. Faye. Objective - Vital Signs/Intake and Output Vital Signs (last 24 hours): Temp Pulse Resp BP Pulse Ox 97.8 F 91 H 20 157/60 H 96 05/03/18 06:00 05/03/18 06:00 05/03/18 06:00 05/03/18 06:00 05/03/18 06:00 Intake and Output: 05/03/18 05/03/18 06:59 18:59 Intake Total 417 Output Total 500 Balance -83 - Medications Medications: Current Medications Acetaminophen (Tylenol 325mg Tab) 650 mg PO Q4H PRN PRN Reason: Pain, Mild (1-3) Amlodipine Besylate (Norvasc) 10 mg PO DAILY [facility] Last Admin: 05/02/18 09:41 Dose: 10 mg Apixaban (Eliquis) 2.5 mg PO BID [facility]; Protocol Last Admin: 05/02/18 17:50 Dose: 2.5 mg Arformoterol Tartrate (Brovana) 15 mcg IH [id number] [facility] Last Admin: 05/03/18 07:56 Dose: 15 mcg Armodafinil (Nuvigil 250 Mg Tab) 250 mg PO DAILY [facility] Last Admin: 05/02/18 09:39 Dose: 250 mg Aspirin (Ecotrin) 81 mg PO DAILY [facility] Last Admin: 05/02/18 09:41 Dose: 81 mg Atorvastatin Calcium (Lipitor) 20 mg PO HS [facility] Last Admin: 05/02/18 21:31 Dose: 20 mg Clonidine HCl (Catapres-Tts3 0.3 Mg/24 Hr) 1 patch TD Q7D@1000 [facility] Last Admin: 05/02/18 11:39 Dose: 1 patch Darbepoetin Timothy (Aranesp) 25 mcg SC QWK [facility] Last Admin: 04/29/18 17:44 Dose: 25 mcg Darbepoetin Timothy (Aranesp) 100 mcg SC QWK [facility] Last Admin: 04/29/18 17:44 Dose: 100 mcg Docusate Sodium (Colace) 100 mg PO TID [facility] Last Admin: 05/02/18 17:51 Dose: 100 mg Ergocalciferol (Drisdol 50,000 Intl Units Cap) 1 cap PO Q7D [facility] Last Admin: 04/26/18 10:23 Dose: 1 cap Ferrous Gluconate (Fergon) 324 mg PO DAILY [facility] Furosemide (Lasix) 40 mg PO DAILY [facility] Last Admin: 05/02/18 09:40 Dose: 40 mg Hydralazine HCl (Apresoline) 10 mg IVP Q6 [facility] Last Admin: 05/03/18 05:12 Dose: 10 mg Insulin Detemir (Levemir) 20 unit SC HS [facility] Last Admin: 05/02/18 22:31 Dose: 20 units Insulin Human Regular (Humulin R Low) 0 units SC ACHS [facility]; Protocol Last Admin: 05/03/18 08:31 Dose: Not Given Isosorbide Mononitrate (Imdur Er) 60 mg PO DAILY [facility] Last Admin: 05/02/18 09:38 Dose: 60 mg Labetalol HCl (Trandate) 20 mg IV Q4 PRN PRN Reason: Other Last Admin: 05/01/18 15:18 Dose: 20 mg Labetalol HCl (Trandate) 200 mg PO TID [facility] Last Admin: 05/02/18 17:50 Dose: 200 mg Levalbuterol HCl (Xopenex) 1.25 mg IH [id number] PRN PRN Reason: Shortness of Breath Last Admin: 05/01/18 19:25 Dose: 1.25 mg Morphine Sulfate (Morphine) 3 mg IVP Q6 PRN PRN Reason: Pain, severe (8-10) Nifedipine (Procardia Xl) 60 mg PO QPM [facility] Last Admin: 05/02/18 17:52 Dose: 60 mg Ondansetron HCl (Zofran Inj) 4 mg IVP Q4H PRN PRN Reason: Nausea/Vomiting Last Admin: 05/02/18 14:29 Dose: 4 mg Pantoprazole Sodium (Protonix Ec Tab) 20 mg PO ACB [facility] Last Admin: 05/02/18 08:41 Dose: 20 mg Silver Sulfadiazine (Silvadene 1% 25 Gm) 0 gm TP BID [facility] Last Admin: 05/02/18 17:55 Dose: 25 gm Simethicone (Mylicon Chew Tab) 80 mg PO PCHS PRN PRN Reason: GI distress Last Admin: 04/27/18 23:16 Dose: 80 mg Tramadol HCl (Ultram) 50 mg PO Q6H PRN PRN Reason: Pain, moderate (4-7) Vitamin B Complex/Vit C/Folic Acid (Nephro-Holland) 1 tab PO 0800 [facility] Last Admin: 05/02/18 08:41 Dose: 1 tab - Labs Labs: 05/02/18 06:30 05/02/18 06:30 PT 13.5 SECONDS (9.4-12.5) H 04/28/18 07:00 INR 1.17 04/28/18 07:00 APTT 26.6 Seconds (25.1-36.5) 04/28/18 07:00
[2018-05-03] MEDS: Silver Sulfadiazine 1% Cream (25 gm) TP SCH ×2 (10:53→18:46)
[2018-05-03] MEDS: Armodafinil 250 mg Tab PO SCH (10:53)
--- NOTE | 2018-05-03 11:24 | PN ---
DATE: 05/02/2018 SUBJECTIVE: Patient is lying in the bed. She is more awake. She is more talkative. She is only using more of the BiPAP machine. She complained of pain in the abdominal area and she feel nauseous. No vomiting and no other complaint. Patient is seen by GI consult and by Surgical consult. PHYSICAL EXAMINATION: VITAL SIGNS: Temperature 97.7, pulse 91, blood pressure 162/69, respirations 20, saturating 98%. HEENT: Head and neck exam normal. NECK: No JVD. No thyromegaly. CHEST: Bilaterally clear. CARDIAC: First sound and second sound normal. There is a systolic murmur on the pulmonary area. Otherwise, normal. ABDOMEN: Midline incision donita still present. There is some yellowish discharge coming out from the mid portion of the surgical line and there is some Betadine along the sides. Belly is mild, general tender. EXTREMITIES: Edema above the ankle. NEUROLOGIC: She is more awake, alert and oriented x3. She is able to move her upper and lower extremities, but generally weak. LABORATORY DATA: White count 8.6, hemoglobin 9.9, hematocrit 33.2, platelets 214. Chemistry: Sodium 144, potassium 4.1, chloride 113, bicarbonate 27, BUN 64, creatinine 1.5, glomerular filtration rate 42, glucose 135 and calcium 8.6. IMPRESSION AND PLAN: 1. Abdominal wall infection. The patient is seen by ID and Surgical team. Continue Zyvox, continue meropenem as per ID recommendations and local wound care, we will discuss with them and with the GI consult on the case. 2. Congestive heart failure, right sided. Continue Lasix. 3. Chronic renal failure, improved with improving very good creatinine, it went down to the below 2 range. 4. Hypertension, stable. Continue labetalol. Continue Procardia. She was doing better. 5. Hypercholesterolemia. 6. Insulin-dependent diabetes. 7. Morbid obesity. 8. Obstructive sleep apnea. 9. Chronic obstructive pulmonary disease and anemia. Continue Brovana. Continue BiPAP machine 05/09. Continue current medication. Follow up with the other consultants. 10. Coronary artery disease, right-sided heart failure. 11. Pulmonary hypertension, continue ____. Continue BiPAP machine and Nuvigil. Blood pressure is stable. Blood pressure is better than before. I will continue current therapy and will follow up clinically. Elroy Florian MD
[2018-05-03] MEDS: Simethicone 80 mg Chewtab PO PRN ×2 (12:19→19:00)
[2018-05-03 12:31] LABS: HEMOGLOBIN 9.7 g/dL (12.0-16.0); MEAN CELL VOLUME 91.1 fl (80.0-105.0); MEAN CORPUSCULAR HEMOGLOBIN 27.8 pg (25.0-35.0); MEAN CORPUSCULAR HGB CONC 30.5 g/dl (31.0-37.0); MEAN PLATELET VOLUME 9.8 fl (7.0-11.0); RBC 3.49 10^6/uL (3.5-6.1); WHITE BLOOD COUNT 8.9 10^3/uL (4.5-11.0)
[2018-05-03 12:43] LABS: ALB/GLOB RATIO 0.7 (1.1-1.8); ALBUMIN 2.3 g/dL (3.0-4.8); CALCIUM 8.6 mg/dL (8.4-10.5)
--- NOTE | 2018-05-03 13:42 | CP.PCM.PN ---
Subjective - Date & Time of Evaluation Date of Evaluation: 05/03/18 Time of Evaluation: 13:41 - Subjective Subjective: Nephrology Consultation Note: Assessment: altered mental status: fluctuating SBO s/p ex lap Acute Kidney Injury (N17.9) likely pre-renal state left adrenal adenoma, Rt renal hyperdense cyst chronic hypercapnic respi failure Diabetic chronic Kidney Disease (E11.22) Hypertensive Chronic Kidney Disease (I12.9) Chronic Kidney Disease (N18.3) Stage 3 with 2.4 gm proteinuria (R80.9) likely due to DM/HTN/Obesity Anemia Vit D def morbid obesity, CAD s/p stent, COPD/SUMMER, rectal ca s/p colostomy Plan No acute need for renal replacement therapy at this time. HTN control on multiple meds; norvasc hydralazine labetalol nifedipine and imdur. hold ARB due to SHELBI. consider to d/c clonidine due her mental status and possible side effect of drowsiness Monitor Input/Output, daily weights and renal function with basic metabolic panel pulmonary ID heme and surgery following PRBC as needed. 2 units [id number]/16/18. d/w heme and okay to use KAVYA from heme perspective. on weekly aransep 125 mcg (04/29/18) supplement lytes as needed lasix 40 mg oral from today. stopped IVF due to pulm congestion on CXR and respi concerns. Adrenal adenoma work up with plasma renin/aldosterone, plasma metanephrine NEGATIVE. outpt 1 mg dexa suppression test repeat renal sono in 6 months to assess her Rt renal cyst Dose meds/antibiotics for reduced GFR. Avoid fleets enema/magnesium based laxatives. Avoid nephrotoxins/NSAIDs/ iodinated contrast (unless needed emergently) Glycemic control Further work up/management as per primary team Thanks for allowing me to participate in care of your patient. Will follow patient with you. Please call if any Qs. had d/w team Dr Dae Dawn Office: [phone] Chief Complaint;AMS Reason for consult: Acute Kidney Injury, CKD 3 HPI: Pt is a 62 F with hx of diabetes Mellitus (15 years), hypertension (years), CKD 3 with baseline cr 1.2-1.3 with AKIs, morbid obesity, CAD s/p stent, COPD/SUMMER on CPAP, rectal ca s/p colostomy recently admitted for SBP s/p ex-lap, seen for SHELBI and HTN urgency came back with complaints of AMS and fever. renal consult for CKD and SHELBI management. pt has no urine complaints. Denies OTC/herbal meds or NSAIDs No recent iodinated contrast exposure. No obvious episodes of low BP. ROS: pt much better and awake today. feels better denies SOB Physical Examination: General Appearance: comfortable,morbidly obese. better appearing, Vitals reviewed and noted as below Head; Atraumatic, normocephalic ENT: dry mucosa EYES: Pupils are equal, round and reactive to light accommodation. Eye muscles and extraocular movement intact. Sclera is anicteric. Neck; supple no lymphadenopathy, no thyromegaly or bruit Lungs: Normal respiratory rate/effort. Breath sounds bilateral equal, diminished at bases but overall limited exam due to her obesity Heart: normal rate. s1s2 normal. No rub or gallop. Extremities: 2+ edema. No varicose veins Neurological: Patient ismuc more awake today Skin: Warm and dry. Normal turgor. No rash. Palpitation: Normal elasticity for age Abdomen: Abdomen is s/p ex lap soft Psych: deferred MSK: no joint tenderness or swelling. Digits and nails normal, no deformity : kidney or bladder not palpable Labs/imaging reviewed. Past medical history, past surgical history, family history, social history, allergy reviewed and noted as below Family hx: no hx of CKD. Rest non-contributory PET CT 04/2017: neg CT abdomen: left adrenal adenoma 1.9 cm Rt kidney 2.6 cm hyperdense cyst UA 100 protein, neg for blood renin and roma low, metanehrine WNL PTH 133 Vit D 27 ANCA neg, K/L ratio WNL Objective - Vital Signs/Intake and Output Vital Signs (last 24 hours): Temp Pulse Resp BP Pulse Ox 97.8 F 94 H 20 150/60 96 05/03/18 06:00 05/03/18 12:21 05/03/18 06:00 05/03/18 12:21 05/03/18 06:00 Intake and Output: 05/03/18 05/03/18 06:59 18:59 Intake Total 417 Output Total 500 Balance -83 - Medications Medications: Current Medications Acetaminophen (Tylenol 325mg Tab) 650 mg PO Q4H PRN PRN Reason: Pain, Mild (1-3) Amlodipine Besylate (Norvasc) 10 mg PO DAILY [facility] Last Admin: 05/03/18 10:52 Dose: 10 mg Apixaban (Eliquis) 2.5 mg PO BID [facility]; Protocol Last Admin: 05/03/18 10:54 Dose: 2.5 mg Arformoterol Tartrate (Brovana) 15 mcg IH [id number] [facility] Last Admin: 05/03/18 07:56 Dose: 15 mcg Armodafinil (Nuvigil 250 Mg Tab) 250 mg PO DAILY [facility] Last Admin: 05/03/18 10:53 Dose: 250 mg Aspirin (Ecotrin) 81 mg PO DAILY [facility] Last Admin: 05/03/18 10:52 Dose: 81 mg Atorvastatin Calcium (Lipitor) 20 mg PO HS [facility] Last Admin: 05/02/18 21:31 Dose: 20 mg Clonidine HCl (Catapres-Tts3 0.3 Mg/24 Hr) 1 patch TD Q7D@1000 [facility] Last Admin: 05/02/18 11:39 Dose: 1 patch Darbepoetin Timothy (Aranesp) 25 mcg SC QWK [facility] Last Admin: 04/29/18 17:44 Dose: 25 mcg Darbepoetin Timothy (Aranesp) 100 mcg SC QWK [facility] Last Admin: 04/29/18 17:44 Dose: 100 mcg Docusate Sodium (Colace) 100 mg PO TID [facility] Last Admin: 05/03/18 10:53 Dose: 100 mg Ergocalciferol (Drisdol 50,000 Intl Units Cap) 1 cap PO Q7D [facility] Last Admin: 05/03/18 08:50 Dose: 1 cap Ferrous Gluconate (Fergon) 324 mg PO DAILY [facility] Last Admin: 05/03/18 10:52 Dose: 324 mg Furosemide (Lasix) 40 mg PO DAILY [facility] Last Admin: 05/03/18 10:52 Dose: 40 mg Hydralazine HCl (Apresoline) 10 mg IVP Q6 [facility] Last Admin: 05/03/18 12:21 Dose: 10 mg Hydromorphone HCl (Dilaudid) 0.5 mg IVP Q4H PRN PRN Reason: Pain, moderate (4-7) Insulin Detemir (Levemir) 20 unit SC HS [facility] Last Admin: 05/02/18 22:31 Dose: 20 units Insulin Human Regular (Humulin R Low) 0 units SC ACHS [facility]; Protocol Last Admin: 05/03/18 12:05 Dose: Not Given Isosorbide Mononitrate (Imdur Er) 60 mg PO DAILY [facility] Last Admin: 05/03/18 10:49 Dose: 60 mg Labetalol HCl (Trandate) 20 mg IV Q4 PRN PRN Reason: Other Last Admin: 05/01/18 15:18 Dose: 20 mg Labetalol HCl (Trandate) 200 mg PO TID [facility] Last Admin: 05/03/18 10:50 Dose: 200 mg Levalbuterol HCl (Xopenex) 1.25 mg IH [id number] PRN PRN Reason: Shortness of Breath Last Admin: 05/01/18 19:25 Dose: 1.25 mg Nifedipine (Procardia Xl) 60 mg PO QPM [facility] Last Admin: 05/02/18 17:52 Dose: 60 mg Ondansetron HCl (Zofran Inj) 4 mg IVP Q4H PRN PRN Reason: Nausea/Vomiting Last Admin: 05/02/18 14:29 Dose: 4 mg Pantoprazole Sodium (Protonix Ec Tab) 20 mg PO ACB [facility] Last Admin: 05/03/18 08:50 Dose: 20 mg Silver Sulfadiazine (Silvadene 1% 25 Gm) 0 gm TP BID [facility] Last Admin: 05/03/18 10:53 Dose: 1 gm Simethicone (Mylicon Chew Tab) 80 mg PO PCHS PRN PRN Reason: GI distress Last Admin: 05/03/18 12:19 Dose: 80 mg Vitamin B Complex/Vit C/Folic Acid (Nephro-Holland) 1 tab PO 0800 [facility] Last Admin: 05/03/18 08:50 Dose: 1 tab - Labs Labs: 05/03/18 11:26 05/03/18 11:26 PT 13.5 SECONDS (9.4-12.5) H 04/28/18 07:00 INR 1.17 04/28/18 07:00 APTT 26.6 Seconds (25.1-36.5) 04/28/18 07:00
[2018-05-03] MEDS ORDERED: Potassium Chloride 20 mEq/15 ml LIQ UD PO STA (16:36)
[2018-05-03] MEDS: NIFEdipine 60 mg ER Tab PO SCH (19:00)
[2018-05-03] MEDS: HYDROmorphone 0.5 mg/0.5 ml ISec IVP PRN ×2 (19:04→23:25)
--- NOTE | 2018-05-03 19:14 | PN ---
DATE: 05/03/2018 PULMONARY PROGRESS NOTE REFERRING PHYSICIAN: Elroy Florian MD SUBJECTIVE: She is lying in the bed, much more awake and alert, on nasal cannula. Son is at bedside. No headache. No rhinitis. No nausea. No vomiting. Mild abdominal discomfort. No leg swelling. OBJECTIVE: GENERAL: In no acute distress. VITAL SIGNS: Temperature is 98, heart rate is 88, respiratory rate is 20, blood pressure 145/59, and pulse ox 96% on nasal cannula. HEENT: Moist mucous membrane. Crowded airway. NECK: Short thick neck. LUNGS: Has a fair airflow with rhonchi. HEART: S1 and S2. ABDOMEN: Soft. Incision site looks okay. Colostomy bag draining well. EXTREMITIES: There is no edema. NEUROLOGIC: Awake, alert and follows simple command. MEDICATIONS: She is on hydralazine 10 mg every 6 hours, Aranesp 125 mcg , Brovana inhaled twice a day, clonidine 0.3 mg patch weekly, Colace 100 mg three times a day, Dilaudid 0.5 mg every 4 hours p.r.n., vitamin D 50,000 units weekly, Ecotrin 81 mg daily, Eliquis 2.5 mg twice a day, ferrous gluconate 325 mg daily, insulin coverage, Imdur ER 60 mg daily, Lasix 40 mg daily, Lipitor 20 mg at bedtime, Nephro vitamins daily, Norvasc 10 mg daily, Nuvigil 250 mg daily, Procardia XL 60 mg daily, Protonix 40 mg daily, Reglan 5 mg a.c. and at bedtime, labetalol 20 mg every 4 hours p.r.n. and 200 mg three times a day [id number], Tylenol p.r.n., Xopenex inhaled every 6 hours p.r.n., and Zofran p.r.n. basis. LABORATORY DATA: Shows hemoglobin 9.7, hematocrit 31.8, WBC 8.9, and platelet count is 244. Sodium 142, potassium 3.8, chloride 113, bicarbonate 28, BUN is 60, creatinine 1.3, glucose 130, and calcium is 8.6. AST 29, ALT 25, and alk phos is 142. Albumin is 2.3. Microbiology; blood culture, urine culture, there is no growth. IMPRESSION AND PLAN: Small bowel obstruction requiring herniectomy; relocation of colostomy; rectal cell carcinoma in the past, requiring resection and chemotherapy; hypoventilation syndrome; pulmonary embolism; deep venous thrombosis; morbid obesity; diabetes; hypertension; healthcare-associated sepsis; and bedridden. Pulmonary point of view, doing okay. Spoke to the patient's son at bedside. All the questions answered. Continue encourage bilevel positive airway pressure at night, daytime stimulant. Antibiotics as per Infectious Disease. Gastric prophylaxis, anticoagulation, and will benefit from rehab. Thank you and we will follow with you. Pamela Ayala MD
--- NOTE | 2018-05-03 19:43 | PN ---
DATE: 05/03/2018 REASON FOR CONSULTATION AND FOLLOWUP: Altered mental status, coronary artery disease, morbid obesity, renal insufficiency. This note is in addition to dictated by the nurse practitioner, Tiffanie Osborne. The patient is lying flat on the bed, not in apparent distress, complaining of off and on abdominal pain. She is a 62-year-old female with morbid obesity, history of recent , status post exploratory laparotomy, history of DVT. PE, history of a stent in the past, history of rectal cancer, recent exploratory laparotomy and end-to-end anastomosis done. RECOMMENDATIONS: Continue evaluation by Surgery. The patient complained of abdominal pain. Supplement electrolytes and continue hydralazine as needed, continue clonidine patch, continue Eliquis, continue atorvastatin, continue insulin, continue Lasix. We will follow with you. Thank you Dr. Florian for providing us the opportunity in taking care of the patientPedro. Pamela Guerrero MD
--- NOTE | 2018-05-03 21:16 | CP.PCM.PN ---
Subjective - Date & Time of Evaluation Date of Evaluation: 05/03/18 Time of Evaluation: 09:40 - Subjective Subjective: No fevers, not in distress. Objective - Vital Signs/Intake and Output Vital Signs (last 24 hours): Temp Pulse Resp BP Pulse Ox 97.8 F 91 H 20 157/60 H 96 05/03/18 06:00 05/03/18 06:00 05/03/18 06:00 05/03/18 06:00 05/03/18 06:00 Intake and Output: 05/03/18 05/03/18 06:59 18:59 Intake Total 417 Output Total 500 Balance -83 - Medications Medications: Current Medications Acetaminophen (Tylenol 325mg Tab) 650 mg PO Q4H PRN PRN Reason: Pain, Mild (1-3) Amlodipine Besylate (Norvasc) 10 mg PO DAILY [facility] Last Admin: 05/02/18 09:41 Dose: 10 mg Apixaban (Eliquis) 2.5 mg PO BID [facility]; Protocol Last Admin: 05/02/18 17:50 Dose: 2.5 mg Arformoterol Tartrate (Brovana) 15 mcg IH [id number] [facility] Last Admin: 05/03/18 07:56 Dose: 15 mcg Armodafinil (Nuvigil 250 Mg Tab) 250 mg PO DAILY [facility] Last Admin: 05/02/18 09:39 Dose: 250 mg Aspirin (Ecotrin) 81 mg PO DAILY [facility] Last Admin: 05/02/18 09:41 Dose: 81 mg Atorvastatin Calcium (Lipitor) 20 mg PO HS [facility] Last Admin: 05/02/18 21:31 Dose: 20 mg Clonidine HCl (Catapres-Tts3 0.3 Mg/24 Hr) 1 patch TD Q7D@1000 [facility] Last Admin: 05/02/18 11:39 Dose: 1 patch Darbepoetin Timothy (Aranesp) 25 mcg SC QWK [facility] Last Admin: 04/29/18 17:44 Dose: 25 mcg Darbepoetin Timothy (Aranesp) 100 mcg SC QWK [facility] Last Admin: 04/29/18 17:44 Dose: 100 mcg Docusate Sodium (Colace) 100 mg PO TID [facility] Last Admin: 05/02/18 17:51 Dose: 100 mg Ergocalciferol (Drisdol 50,000 Intl Units Cap) 1 cap PO Q7D [facility] Last Admin: 04/26/18 10:23 Dose: 1 cap Ferrous Gluconate (Fergon) 324 mg PO DAILY [facility] Furosemide (Lasix) 40 mg PO DAILY [facility] Last Admin: 05/02/18 09:40 Dose: 40 mg Hydralazine HCl (Apresoline) 10 mg IVP Q6 [facility] Last Admin: 05/03/18 05:12 Dose: 10 mg Insulin Detemir (Levemir) 20 unit SC [facility] Last Admin: 05/02/18 22:31 Dose: 20 units Insulin Human Regular (Humulin R Low) 0 units SC ACHS [facility]; Protocol Last Admin: 05/03/18 08:31 Dose: Not Given Isosorbide Mononitrate (Imdur Er) 60 mg PO DAILY [facility] Last Admin: 05/02/18 09:38 Dose: 60 mg Labetalol HCl (Trandate) 20 mg IV Q4 PRN PRN Reason: Other Last Admin: 05/01/18 15:18 Dose: 20 mg Labetalol HCl (Trandate) 200 mg PO TID [facility] Last Admin: 05/02/18 17:50 Dose: 200 mg Levalbuterol HCl (Xopenex) 1.25 mg IH [id number] PRN PRN Reason: Shortness of Breath Last Admin: 05/01/18 19:25 Dose: 1.25 mg Morphine Sulfate (Morphine) 3 mg IVP Q6 PRN PRN Reason: Pain, severe (8-10) Nifedipine (Procardia Xl) 60 mg PO QPM [facility] Last Admin: 05/02/18 17:52 Dose: 60 mg Ondansetron HCl (Zofran Inj) 4 mg IVP Q4H PRN PRN Reason: Nausea/Vomiting Last Admin: 05/02/18 14:29 Dose: 4 mg Pantoprazole Sodium (Protonix Ec Tab) 20 mg PO ACB [facility] Last Admin: 05/02/18 08:41 Dose: 20 mg Silver Sulfadiazine (Silvadene 1% 25 Gm) 0 gm TP BID [facility] Last Admin: 05/02/18 17:55 Dose: 25 gm Simethicone (Mylicon Chew Tab) 80 mg PO PCHS PRN PRN Reason: GI distress Last Admin: 04/27/18 23:16 Dose: 80 mg Tramadol HCl (Ultram) 50 mg PO Q6H PRN PRN Reason: Pain, moderate (4-7) Vitamin B Complex/Vit C/Folic Acid (Nephro-Holland) 1 tab PO 0800 [facility] Last Admin: 05/02/18 08:41 Dose: 1 tab - Labs Labs: 05/02/18 06:30 05/02/18 06:30 PT 13.5 SECONDS (9.4-12.5) H 04/28/18 07:00 INR 1.17 04/28/18 07:00 APTT 26.6 Seconds (25.1-36.5) 04/28/18 07:00 - Constitutional Appears: Chronically Ill - Head Exam Head Exam: NORMAL INSPECTION - Respiratory Exam Respiratory Exam: Decreased Breath Sounds - Cardiovascular Exam Cardiovascular Exam: +S1, +S2 - GI/Abdominal Exam GI & Abdominal Exam: Soft. absent: Tenderness Assessment and Plan - Assessment and Plan (Free Text) Plan: Assessment S/P abdominal wall cellulitis S/P small bowel obstruction in this patient with ventral wall hernia, S/P ventral incarcerated hernia repair, adhesiolysis and revision of colostomy S/P acute coronary syndrome with NSTEMI COPD history of VRE UTI history of severe sepsis secondary to left medial thigh abscess, growing Proteus, S/P incision and drainage DM HTN CAD Unresectable rectal cancer S/P chemotherapy and radiation therapy S/P colostomy S/P Port-a-cath placement morbid obesity with BMI 50 obstructive sleep apnea history of pulmonary embolism S/P IVC filter placement Plan completed 7 days of Zyvox and Merrem and will continue to monitor clinically off antibiotics
[2018-05-03] MEDS: Insulin Detemir 100 units/ml Vial (Levemir) SC SCH (22:38)
[2018-05-04] MEDS: HYDROmorphone 0.5 mg/0.5 ml ISec IVP PRN ×3 (07:10→20:49)
[2018-05-04] MEDS: Insulin Reg-LOW-Coverage SC SCH ×4 (07:30→22:07)
[2018-05-04 07:38] LABS: ALB/GLOB RATIO 0.7 (1.1-1.8); ALBUMIN 2.7 g/dL (3.0-4.8); CALCIUM 9.2 mg/dL (8.4-10.5)
--- NOTE | 2018-05-04 08:19 | CP.PCM.PN ---
Subjective - Date & Time of Evaluation Date of Evaluation: 05/04/18 Time of Evaluation: 07:30 - Subjective Subjective: Open eyes to name calling, No distress, lying in bed, lethargic Reason for consultation and follow up: Cardiac evaluation of coronary artery disease, admitted for altered mental status Seen and examined by me and Dr. Guerrero Objective - Vital Signs/Intake and Output Vital Signs (last 24 hours): Temp Pulse Resp BP Pulse Ox 97.8 F 95 H 20 185/69 H 96 05/03/18 17:03 05/04/18 05:52 05/03/18 17:03 05/04/18 05:52 05/03/18 17:03 - Medications Medications: Current Medications Acetaminophen (Tylenol 325mg Tab) 650 mg PO Q4H PRN PRN Reason: Pain, Mild (1-3) Amlodipine Besylate (Norvasc) 10 mg PO DAILY [facility] Last Admin: 05/03/18 10:52 Dose: 10 mg Apixaban (Eliquis) 2.5 mg PO BID [facility]; Protocol Last Admin: 05/03/18 18:59 Dose: 2.5 mg Arformoterol Tartrate (Brovana) 15 mcg IH [id number] [facility] Last Admin: 05/03/18 20:30 Dose: 15 mcg Armodafinil (Nuvigil 250 Mg Tab) 250 mg PO DAILY [facility] Last Admin: 05/03/18 10:53 Dose: 250 mg Aspirin (Ecotrin) 81 mg PO DAILY [facility] Last Admin: 05/03/18 10:52 Dose: 81 mg Atorvastatin Calcium (Lipitor) 20 mg PO HS [facility] Last Admin: 05/03/18 22:39 Dose: 20 mg Clonidine HCl (Catapres-Tts3 0.3 Mg/24 Hr) 1 patch TD Q7D@1000 [facility] Last Admin: 05/02/18 11:39 Dose: 1 patch Darbepoetin Timothy (Aranesp) 25 mcg SC QWK [facility] Last Admin: 04/29/18 17:44 Dose: 25 mcg Darbepoetin Timothy (Aranesp) 100 mcg SC QWK [facility] Last Admin: 04/29/18 17:44 Dose: 100 mcg Docusate Sodium (Colace) 100 mg PO TID [facility] Last Admin: 05/03/18 18:41 Dose: 100 mg Ergocalciferol (Drisdol 50,000 Intl Units Cap) 1 cap PO Q7D [facility] Last Admin: 05/03/18 08:50 Dose: 1 cap Ferrous Gluconate (Fergon) 324 mg PO DAILY [facility] Last Admin: 05/03/18 10:52 Dose: 324 mg Furosemide (Lasix) 40 mg PO DAILY [facility] Last Admin: 05/03/18 10:52 Dose: 40 mg Hydralazine HCl (Apresoline) 10 mg IVP Q6 [facility] Last Admin: 05/04/18 05:52 Dose: 10 mg Hydromorphone HCl (Dilaudid) 0.5 mg IVP Q4H PRN PRN Reason: Pain, moderate (4-7) Last Admin: 05/04/18 07:10 Dose: 0.5 mg Insulin Detemir (Levemir) 20 unit SC [facility] Last Admin: 05/03/18 22:38 Dose: 20 units Insulin Human Regular (Humulin R Low) 0 units SC [facility]; Protocol Last Admin: 05/03/18 22:38 Dose: Not Given Isosorbide Mononitrate (Imdur Er) 60 mg PO DAILY [facility] Last Admin: 05/03/18 10:49 Dose: 60 mg Labetalol HCl (Trandate) 20 mg IV Q4 PRN PRN Reason: Other Last Admin: 05/01/18 15:18 Dose: 20 mg Labetalol HCl (Trandate) 200 mg PO TID [facility] Last Admin: 05/03/18 18:43 Dose: 200 mg Levalbuterol HCl (Xopenex) 1.25 mg IH [id number] PRN PRN Reason: Shortness of Breath Last Admin: 05/01/18 19:25 Dose: 1.25 mg Metoclopramide HCl (Reglan) 5 mg PO [facility] Nifedipine (Procardia Xl) 60 mg PO QPM [facility] Last Admin: 05/03/18 19:00 Dose: 60 mg Ondansetron HCl (Zofran Inj) 4 mg IVP Q4H PRN PRN Reason: Nausea/Vomiting Last Admin: 05/02/18 14:29 Dose: 4 mg Pantoprazole Sodium (Protonix Ec Tab) 20 mg PO ACB [facility] Last Admin: 05/03/18 08:50 Dose: 20 mg Silver Sulfadiazine (Silvadene 1% 25 Gm) 0 gm TP BID [facility] Last Admin: 05/03/18 18:46 Dose: 1 gm Simethicone (Mylicon Chew Tab) 80 mg PO HS PRN PRN Reason: GI distress Last Admin: 05/03/18 19:00 Dose: 80 mg Vitamin B Complex/Vit C/Folic Acid (Nephro-Holland) 1 tab PO 0800 [facility] Last Admin: 05/03/18 08:50 Dose: 1 tab - Labs Labs: 05/03/18 11:26 05/04/18 07:10 PT 13.5 SECONDS (9.4-12.5) H 04/28/18 07:00 INR 1.17 04/28/18 07:00 APTT 26.6 Seconds (25.1-36.5) 04/28/18 07:00 - Constitutional Appears: Non-toxic, No Acute Distress - Head Exam Head Exam: NORMAL INSPECTION, NORMOCEPHALIC - ENT Exam ENT Exam: Mucous Membranes Dry - Cardiovascular Exam Cardiovascular Exam: +S1, +S2 Additional comments: right chest port - GI/Abdominal Exam GI & Abdominal Exam: Soft, Normal Bowel Sounds Additional comments: colostomy - Extremities Exam Additional comments: 3-4+edema - Neurological Exam Additional comments: lethargic but responsive to verbal commands - Psychiatric Exam Psychiatric exam: Flat Affect - Skin Skin Exam: Dry, Normal Color, Warm Assessment and Plan - Assessment and Plan (Free Text) Assessment: A 62 year old morbidly obese female who was brought to the ER due to altered mental status. Recently was discharged from [facility] due to small bowel obstruction with resection by Dr. Mckeon. Patient is known to have rectal cancer in the past. with colostomy. History of coronary artery disease with stent of circumflex,hypertension, hyperlipidemia,diabetes, Sleep Apnea, COPD, CHF,history of DVT and PE. CT of head unremarkable, EKG showed NSR, Chest X ray showed moderate CHF however bilateral infiltrate. Recent ECHO LVEF normal.Cardiac status stable.Uncontrolled blood pressure. Plan: No distress, Lethargic,but easily awaken, responds to verbal commands Denies chest pain or shortness of breath Heart rate controlled Uncontrolled blood pressure Hydralazine IV PRN On Norvasc 10 mg daily,ASA 81 mg daily,Lovenox 30 mg daily,Lasix 40 mg daily Hydralazine 100 mg TID, Imdur Er 60 mg daily,Labetolol 200 mg TID,Procardia 60 mg daily Clonindine patch. Completed antibiotics Adrenal work up in progress GI follow up for off and on abdominal pain Able to use BIPAP last night Continue current treatment Continue current medications Chart reviewed Will follow up Plan and treatment discussed with Dr. Guerrero
[2018-05-04 08:26] LABS: HEMOGLOBIN 9.9 g/dL (12.0-16.0); MEAN CELL VOLUME 93.2 fl (80.0-105.0); MEAN PLATELET VOLUME 10.8 fl (7.0-11.0); RBC 3.54 10^6/uL (3.5-6.1); RED CELL DISTRIBUTION WIDTH 18.7 % (11.5-14.5)
[2018-05-04] MEDS: Arformoterol 15 mcg/2 ml Inh Sol IH SCH ×2 (08:59→19:30)
[2018-05-04] MEDS: Multivitamin Vitamin B Complex (Nephro-Vite) Tab PO SCH (09:46)
[2018-05-04] MEDS: Pantoprazole 20 mg EC Tab PO SCH (09:47)
[2018-05-04] MEDS: Armodafinil 250 mg Tab PO SCH (09:47)
--- NOTE | 2018-05-04 11:31 | PN ---
DATE: 05/04/2018 SUBJECTIVE: The patient is in bed in no acute distress, nontoxic. No fevers and chills. However, she is overall in poor condition. She has periods of confusion. PHYSICAL EXAMINATION: VITAL SIGNS: Temperature 97, blood pressure 130/50, respiratory rate 18, heart rate 91. HEENT: Examination of HEENT is unremarkable. NECK: Supple. LUNGS: Decreased breath sounds. HEART: Normal S1, S2. ABDOMEN: Soft, nontender. LABORATORY DATA: Laboratory examination reveals a white count of 8.9, hemoglobin of 9, platelets of 244. Chemistries reveals a BUN of 64, creatinine of 1.3. Procalcitonin is 0.43. Urinalysis is noted. Microbiology reveals the blood cultures are negative. Urine cultures are negative. Abdomen, the wound culture is pending. ASSESSMENT AND PLAN: This is a 62-year-old female status post abdominal wall cellulitis, status post small bowel obstruction with a ventral hernia, ventral incarcerated hernia repair, adenolysis and revision of colostomy, status post acute coronary syndrome, [id number] myocardial infarction, chronic struck to lung disease, history of a vancomycin-resistant enterococci, urinary tract infection and severe sepsis with diabetes mellitus, hypertension, coronary artery disease, unresectable rectal cancer status post chemotherapy, radiation therapy status post colostomy, status post Port-A-Cath placement, morbid obesity, BMI of 50. Completed antibiotic 7 days of Zyvox and meropenem. Currently off antibiotics, afebrile. Normal white count. Dr. Ayala's note is reviewed. We will follow with you. Lawrence Cheek MD
--- NOTE | 2018-05-04 12:10 | PN ---
DATE: 05/04/2018 REASON FOR CONSULTATION: Followup cardiac evaluation, history of coronary artery disease, admitted with altered mental status, lethargic. This note is in addition to dictated by the nurse practitioner. SUBJECTIVE: Patient is not eating, last night nurse told that patient drank the milkshake brought by the daughter. LABORATORY DATA: Hemoglobin 9.9, hematocrit 33.0. BUN 61, creatinine 1.3. No evidence of acute NJ, history of recent bowel obstruction status post resection and surgery, admitted with altered mental status. RECOMMENDATIONS: Continue aspirin, continue Norvasc, continue labetalol since the patient's blood pressure is elevated and very predictable p.o. meds. We will put clonidine patch already is given and we will put hydralazine IV p.r.n. History of DVT, PE in the past, history of patient is on Eliquis, history of anorectal cancer status post colostomy, history of stent in the circumflex, diabetes, hypertension, hyperlipidemia. Overall, patient's critical long-term prognosis is guarded. I saw that Dr. Dawn, Nephrology started IV labetalol every 4 hours as needed; so we leave the IV labetalol and we will discontinue the order of hydralazine because patient needs some IV parenteral medications because of unpredictability p.o. Overall, patient's condition is critical, long-term prognosis is guarded. This note is in addition to dictated by the nurse practitioner, Tiffanie Osborne. Thank you Dr. Florian for providing us the opportunity in taking care of the patient, Pedro Guevara. Pamela Guerrero MD
--- NOTE | 2018-05-04 15:39 | CP.PCM.PN ---
Subjective - Date & Time of Evaluation Date of Evaluation: 05/04/18 Time of Evaluation: 15:38 - Subjective Subjective: Nephrology Consultation Note: Assessment: altered mental status: fluctuating SBO s/p ex lap Acute Kidney Injury (N17.9) likely pre-renal state left adrenal adenoma, Rt renal hyperdense cyst chronic hypercapnic respi failure Diabetic chronic Kidney Disease (E11.22) Hypertensive Chronic Kidney Disease (I12.9) Chronic Kidney Disease (N18.3) Stage 3 with 2.4 gm proteinuria (R80.9) likely due to DM/HTN/Obesity Anemia Vit D def morbid obesity, CAD s/p stent, COPD/SUMMER, rectal ca s/p colostomy Plan No acute need for renal replacement therapy at this time. HTN control on multiple meds; norvasc hydralazine labetalol nifedipine and imdur. hold ARB due to SHELBI. consider to d/c clonidine due her mental status and possible side effect of drowsiness Monitor Input/Output, daily weights and renal function with basic metabolic panel pulmonary ID heme and surgery following PRBC as needed. 2 units [id number]/16/18. d/w heme and okay to use KAVYA from heme perspective. on weekly aransep 125 mcg (04/29/18) supplement lytes as needed lasix 40 mg oral daily. stopped IVF due to pulm congestion on CXR and respi concerns. CT abdomen results pending Adrenal adenoma work up with plasma renin/aldosterone, plasma metanephrine NEGATIVE. outpt 1 mg dexa suppression test repeat renal sono in 6 months to assess her Rt renal cyst Dose meds/antibiotics for reduced GFR. Avoid fleets enema/magnesium based laxatives. Avoid nephrotoxins/NSAIDs/ iodinated contrast (unless needed emergently) Glycemic control Further work up/management as per primary team Thanks for allowing me to participate in care of your patient. Will follow patient with you. Please call if any Qs. had d/w team Dr Dae Dawn Office: [phone] Chief Complaint;AMS Reason for consult: Acute Kidney Injury, CKD 3 HPI: Pt is a 62 F with hx of diabetes Mellitus (15 years), hypertension (years), CKD 3 with baseline cr 1.2-1.3 with AKIs, morbid obesity, CAD s/p stent, COPD/SUMMER on CPAP, rectal ca s/p colostomy recently admitted for SBP s/p ex-lap, seen for SHELBI and HTN urgency came back with complaints of AMS and fever. renal consult for CKD and SHELBI management. pt has no urine complaints. Denies OTC/herbal meds or NSAIDs No recent iodinated contrast exposure. No obvious episodes of low BP. ROS: c/o abdomen pain today Physical Examination: General Appearance: comfortable,morbidly obese. ill appearing, Vitals reviewed and noted as below Head; Atraumatic, normocephalic ENT: dry mucosa EYES: Pupils are equal, round and reactive to light accommodation. Eye muscles and extraocular movement intact. Sclera is anicteric. Neck; supple no lymphadenopathy, no thyromegaly or bruit Lungs: Normal respiratory rate/effort. Breath sounds bilateral equal, diminished at bases but overall limited exam due to her obesity Heart: normal rate. s1s2 normal. No rub or gallop. Extremities: 2+ edema. No varicose veins Neurological: Patient ismuc more awake today Skin: Warm and dry. Normal turgor. No rash. Palpitation: Normal elasticity for age Abdomen: Abdomen is s/p ex lap soft. tender Psych: deferred MSK: no joint tenderness or swelling. Digits and nails normal, no deformity : kidney or bladder not palpable Labs/imaging reviewed. Past medical history, past surgical history, family history, social history, allergy reviewed and noted as below Family hx: no hx of CKD. Rest non-contributory PET CT 04/2017: neg CT abdomen: left adrenal adenoma 1.9 cm Rt kidney 2.6 cm hyperdense cyst UA 100 protein, neg for blood renin and roma low, metanehrine WNL PTH 133 Vit D 27 ANCA neg, K/L ratio WNL Objective - Vital Signs/Intake and Output Vital Signs (last 24 hours): Temp Pulse Resp BP Pulse Ox 98 F 95 H 20 185/69 H 97 05/04/18 08:44 05/04/18 11:45 05/04/18 08:44 05/04/18 11:45 05/04/18 08:44 Intake and Output: 05/04/18 05/04/18 06:59 18:59 Intake Total 180 Output Total 800 Balance -620 - Medications Medications: Current Medications Acetaminophen (Tylenol 325mg Tab) 650 mg PO Q4H PRN PRN Reason: Pain, Mild (1-3) Amlodipine Besylate (Norvasc) 10 mg PO DAILY [facility] Last Admin: 05/04/18 09:46 Dose: 10 mg Apixaban (Eliquis) 2.5 mg PO BID [facility]; Protocol Last Admin: 05/04/18 09:45 Dose: 2.5 mg Arformoterol Tartrate (Brovana) 15 mcg IH [id number] [facility] Last Admin: 05/04/18 08:59 Dose: 15 mcg Armodafinil (Nuvigil 250 Mg Tab) 250 mg PO DAILY [facility] Last Admin: 05/04/18 09:47 Dose: 250 mg Aspirin (Ecotrin) 81 mg PO DAILY [facility] Last Admin: 05/04/18 09:45 Dose: 81 mg Atorvastatin Calcium (Lipitor) 20 mg PO HS [facility] Last Admin: 05/03/18 22:39 Dose: 20 mg Clonidine HCl (Catapres-Tts3 0.3 Mg/24 Hr) 1 patch TD Q7D@1000 [facility] Last Admin: 05/02/18 11:39 Dose: 1 patch Darbepoetin Timothy (Aranesp) 25 mcg SC QWK [facility] Last Admin: 04/29/18 17:44 Dose: 25 mcg Darbepoetin Timothy (Aranesp) 100 mcg SC QWK [facility] Last Admin: 04/29/18 17:44 Dose: 100 mcg Docusate Sodium (Colace) 100 mg PO TID [facility] Last Admin: 05/04/18 09:45 Dose: 100 mg Ergocalciferol (Drisdol 50,000 Intl Units Cap) 1 cap PO Q7D [facility] Last Admin: 05/03/18 08:50 Dose: 1 cap Ferrous Gluconate (Fergon) 324 mg PO DAILY [facility] Last Admin: 05/04/18 09:45 Dose: 324 mg Furosemide (Lasix) 40 mg PO DAILY [facility] Last Admin: 05/04/18 09:46 Dose: 40 mg Hydralazine HCl (Apresoline) 100 mg PO Q8 [facility] Last Admin: 05/04/18 11:45 Dose: 100 mg Hydromorphone HCl (Dilaudid) 0.5 mg IVP Q4H PRN PRN Reason: Pain, moderate (4-7) Last Admin: 05/04/18 11:47 Dose: 0.5 mg Insulin Detemir (Levemir) 20 unit SC [facility] Last Admin: 05/03/18 22:38 Dose: 20 units Insulin Human Regular (Humulin R Low) 0 units SC [facility]; Protocol Last Admin: 05/04/18 11:43 Dose: Not Given Isosorbide Mononitrate (Imdur Er) 60 mg PO DAILY [facility] Last Admin: 05/04/18 09:45 Dose: 60 mg Labetalol HCl (Trandate) 20 mg IV Q4 PRN PRN Reason: Other Last Admin: 05/01/18 15:18 Dose: 20 mg Labetalol HCl (Trandate) 200 mg PO TID [facility] Last Admin: 05/04/18 09:47 Dose: 200 mg Levalbuterol HCl (Xopenex) 1.25 mg IH [id number] PRN PRN Reason: Shortness of Breath Last Admin: 05/01/18 19:25 Dose: 1.25 mg Metoclopramide HCl (Reglan) 5 mg PO [facility] Nifedipine (Procardia Xl) 60 mg PO QPM [facility] Last Admin: 05/03/18 19:00 Dose: 60 mg Ondansetron HCl (Zofran Inj) 4 mg IVP Q4H PRN PRN Reason: Nausea/Vomiting Last Admin: 05/02/18 14:29 Dose: 4 mg Pantoprazole Sodium (Protonix Ec Tab) 20 mg PO ACB [facility] Last Admin: 05/04/18 09:47 Dose: 20 mg Silver Sulfadiazine (Silvadene 1% 25 Gm) 0 gm TP BID [facility] Last Admin: 05/03/18 18:46 Dose: 1 gm Simethicone (Mylicon Chew Tab) 80 mg PO [facility] PRN PRN Reason: GI distress Last Admin: 05/03/18 19:00 Dose: 80 mg Vitamin B Complex/Vit C/Folic Acid (Nephro-Holland) 1 tab PO 0800 [facility] Last Admin: 05/04/18 09:46 Dose: 1 tab - Labs Labs: 05/04/18 07:10 05/04/18 07:10 PT 13.5 SECONDS (9.4-12.5) H 04/28/18 07:00 INR 1.17 04/28/18 07:00 APTT 26.6 Seconds (25.1-36.5) 04/28/18 07:00
--- NOTE | 2018-05-04 17:27 | CT ---
Date of service: 05/04/2018 PROCEDURE: CT Abdomen and Pelvis. HISTORY: Abdominal pain, nausea COMPARISON: Comparison made with prior CT scan abdomen pelvis 04/28/2018. TECHNIQUE: Contiguous axial images of the abdomen and pelvis performed without oral or intravenous contrast material. Additional 2D sagittal and coronal reformats provided. L reformats generated. Radiation dose: Total exam DLP = 2116.95 mGy-cm. This CT exam was performed using one or more of the following dose reduction techniques: Automated exposure control, adjustment of the mA and/or kV according to patient size, and/or use of iterative reconstruction technique. FINDINGS: LOWER THORAX: Heart is enlarged. No significant pericardial effusion. Mild bibasilar atelectasis. No evidence of effusion or basilar pneumothorax. LIVER: Unenhanced liver exhibits normal size and attenuation pattern GALLBLADDER AND BILE DUCTS: Gallbladder is physiologically distended. No evidence of intraluminal gallbladder calculi PANCREAS: Pancreas appears atrophic and fatty replaced. No obvious pancreatic masses or collections. SPLEEN: Unremarkable. No splenomegaly. ADRENALS: No adrenal lesions.. KIDNEYS AND URETERS: Both the kidneys exhibit relatively symmetric size. There are infiltration changes seen in the right and to a lesser degree left perinephric fat. BLADDER: Urinary bladder incompletely distended which may in part account for thick-walled appearance. Correlation with urinalysis recommended to exclude cystitis. REPRODUCTIVE: Apparent hysterectomy APPENDIX: Unremarkable. BOWEL: Evaluation of the bowel is limited due to the lack of oral contrast material. There is a ostomy seen in the right parasagittal mid abdomen. Additionally, there is a 2nd ostomy site left lateral mid-lower abdomen. .No evidence of acute mechanical small bowel obstruction. PERITONEUM: There is a large mid and left parasagittal ventral wall hernia that contains mesenteric fat and apparent postoperative fluid collection subjacent to the skin closure donita.. Additionally, there is a 2nd ostomy site left lateral mid-lower abdomen. Apparent wall thickening what is felt to represent the residual right colon that extends to the level of the ostomy site There also appear to be fluid and infiltration and/or granulation tissue/scarring changes in the presacral space possibly postsurgical in origin. Clinical correlation recommended. Infiltration changes are seen within the subcutaneous tissues overlying these sites as well as laterally extending to the level of the pelvis. Lesser infiltration right lateral subcutaneous tissues of the abdomen and upper pelvis region... LYMPH NODES: Unremarkable. No enlarged lymph nodes. VASCULATURE: In situ IVC filter.. No aortic aneurysm. Mild aortic atherosclerotic calcification or mural plaque present. BONES: Multilevel degenerative spondylosis of the lower thoracic and lumbar spine. No acute compression fractures. OTHER FINDINGS: None. IMPRESSION: There is a large mid and left parasagittal ventral wall hernia that contains mesenteric fat and apparent postoperative fluid collection subjacent to the skin closure donita.. Additionally, there is a 2nd ostomy site left lateral mid-lower abdomen. Infiltration changes are seen within the subcutaneous tissues overlying these sites as well as laterally extending to the level of the pelvis. Lesser infiltration right lateral subcutaneous tissues of the abdomen and upper pelvis region... Apparent wall thickening what is felt to represent the residual right colon that extends to the level of the ostomy site There also appear to be fluid and infiltration and/or granulation tissue/scarring changes in the presacral space possibly postsurgical in origin. Clinical correlation recommended.. Infiltration changes are seen within the subcutaneous tissues overlying these sites as well as laterally extending to the level of the pelvis. Lesser infiltration right lateral subcutaneous tissues of the abdomen and upper pelvis region...
[2018-05-04] MEDS: NIFEdipine 60 mg ER Tab PO SCH (18:21)
--- NOTE | 2018-05-04 21:24 | PN ---
DATE: 05/04/2018 SUBJECTIVE: This patient was seen and evaluated earlier today. The patient's p.o. intake still remains low. PHYSICAL EXAMINATION: VITAL SIGNS: Temperature is 97.7, pulse 92, blood pressure is 164/67. HEENT: Atraumatic, anicteric. NECK: Supple. HEART: S1 and S2 heard. LUNGS: Bilateral air entry present. ABDOMEN: The incision noticed with donita with mild erythema noticed. The patient has a colostomy in place and also dressing covering the mucous fistula noticed. I did inspect the perineal area. The patient has some decubitus ulceration covered with dressing. The patient did have status post AP resection. The area appeared unremarkable. LABORATORY DATA: Hemoglobin 9.9, hematocrit 33, WBC is 9, platelets 234. BUN 64, creatinine 1.3. IMPRESSION: This is a 62-year-old patient with a history of morbid obesity, status post rectal cancer surgery, status post abdominoperineal resection done in the past. The patient has recently underwent ventral hernia repair done. 1. History of deep vein thrombosis, pulmonary embolism, pulmonary hypertension. The patient has poor p.o. intake. The patient is on multiple medications. The patient is on proton pump inhibitors. We will continue that. 2. The patient is on antibiotics for abdominal wall cellulitis. 3. Morbid obesity. The CT scan findings reviewed, and perineal area appears otherwise unremarkable except some sacral decubitus. We would recommend surgical followup. The patient is on low dose metoclopramide. We will give only for a short courses or duration. The patient also has renal insufficiency. The patient may have what are the problems can be related to abdominal bloating and discomfort, probably it could be due to gastroparesis. It is reasonable to give only very short course of pantoprazole however. Thank you very much for allowing us to participate in the care of the patient. Gita Benitez MD
[2018-05-04] MEDS: Insulin Detemir 100 units/ml Vial (Levemir) SC SCH (22:07)
--- NOTE | 2018-05-04 23:19 | PN ---
DATE: 05/04/2018 PULMONARY PROGRESS NOTE REFERRING PHYSICIAN: Elroy Florian MD SUBJECTIVE: She is lying in the bed, sleepy, arousable, on nasal cannula oxygen, refusing BiPAP at nighttime. No cough. No sputum production. No hemoptysis or emesis. No hematuria. No diarrhea. Colostomy working well. OBJECTIVE: GENERAL: In no acute distress. VITAL SIGNS: Temperature is 98, heart rate is 92, respiratory rate is 18, blood pressure 164/67, pulse ox 95% on room air. HEENT: Moist mucous membrane. Crowded airway. NECK: Supple. No JVD. LUNGS: Have a fair airflow with rhonchi. HEART: S1 and S2. ABDOMEN: Soft. Incision site looks okay. Colostomy working well. EXTREMITIES: There is no edema. NEUROLOGICAL: Awake, alert. Follows simple commands. MEDICATIONS: She is on hydralazine 100 mg every 8 hours, Aranesp 125 mcg weekly, Brovana inhaled twice a day, Catapres 0.3 mg weekly, Colace 100 mg 3 times a day, Dilaudid 0.5 mg every 4 hours p.r.n., vitamin D 50,000 units every 7 days, Ecotrin 81 mg daily, Eliquis 2.5 mg twice a day, ferrous gluconate 324 mg daily, Imdur ER 60 mg daily, Lasix 40 mg daily, Levemir 20 units subcutaneously at bedtime, Lipitor 20 mg at bedtime, simethicone 80 mg p.c. at bedtime, Nephro vitamins daily, Norvasc 10 mg daily, Nuvigil 250 mg daily, Procardia XL 60 mg daily, Protonix 20 mg a.c.b., Reglan 5 mg a.c. and at bedtime, labetalol 20 mg every 4 hours p.r.n. and 200 mg 3 times a day [id number], Tylenol p.r.n., Xopenex inhaled every 6 hours, Zofran p.r.n. basis. LABORATORY DATA: Shows hemoglobin 9.9, hematocrit 33.0, WBC 9.0, platelet is 234. Sodium 142, potassium 4.4, chloride 112, bicarbonate is 26, BUN 64, creatinine 1.3, glucose 98, calcium 9.2. AST 26, ALT 18, alk phos is 147. Albumin is 2.7. Microbiology: Blood culture, there is no growth. Abdominal wound has some yeast. Had a CAT scan of the abdomen and pelvis done yesterday; shows there is a still large mid left parasagittal ventral wall hernia that contained mesenteric fat and apparent postoperative fluid collection, subject to the skin closure staple. There is also a second ostomy site left lateral mid lower abdomen. Infiltrative changes seen subcutaneous tissue overlying the sites, also have left-sided infiltrates, right lateral subcutaneous tissue of the abdomen and upper pelvis region, apparent wall thickening, what is felt to represent the residual right colon that extended to the level of the ostomy site. There appears to be fluid and infiltration and/or granulation tissue/scarring changes in the parasacral space, possibly postsurgical region. IMPRESSION AND PLAN: Small bowel obstruction, requiring herniectomy and relocation of colostomy; history of rectal cell carcinoma, requiring resection and chemotherapy in the past; has a hypoventilation syndrome; history of pulmonary embolism; deep venous thrombosis; morbid obesity; diabetes; hypertension; healthcare-associated sepsis; bedridden. Pulmonary point of view, continue bronchodilator, keep head at 45 degrees. Continue noninvasive ventilation at night, daytime stimulant. Antibiotics as per Infectious Disease. Is being followed by Surgical team. Gastric prophylaxis. Out of bed to chair if possible. Pressure ulcer precaution. Will benefit from rehab. Thank you and we will follow with you. Pamela Ayala MD
[2018-05-05] MEDS: HYDROmorphone 0.5 mg/0.5 ml ISec IVP PRN ×4 (02:30→19:40)
--- NOTE | 2018-05-05 07:11 | CP.PCM.PN ---
Subjective - Date & Time of Evaluation Date of Evaluation: 05/05/18 Time of Evaluation: 06:30 - Subjective Subjective: Awake, No distress, lying in bed Reason for consultation and follow up: Cardiac evaluation of coronary artery disease, admitted for altered mental status Seen and examined by me and Dr. Guerrero Objective - Vital Signs/Intake and Output Vital Signs (last 24 hours): Temp Pulse Resp BP Pulse Ox 97.7 F 95 H 18 171/64 H 95 05/04/18 16:58 05/05/18 06:42 05/04/18 16:58 05/05/18 06:42 05/04/18 16:58 - Medications Medications: Current Medications Acetaminophen (Tylenol 325mg Tab) 650 mg PO Q4H PRN PRN Reason: Pain, Mild (1-3) Amlodipine Besylate (Norvasc) 10 mg PO DAILY [facility] Last Admin: 05/04/18 09:46 Dose: 10 mg Apixaban (Eliquis) 2.5 mg PO BID [facility]; Protocol Last Admin: 05/04/18 18:21 Dose: 2.5 mg Arformoterol Tartrate (Brovana) 15 mcg IH [id number] [facility] Last Admin: 05/04/18 19:30 Dose: 15 mcg Armodafinil (Nuvigil 250 Mg Tab) 250 mg PO DAILY [facility] Last Admin: 05/04/18 09:47 Dose: 250 mg Aspirin (Ecotrin) 81 mg PO DAILY [facility] Last Admin: 05/04/18 09:45 Dose: 81 mg Atorvastatin Calcium (Lipitor) 20 mg PO HS [facility] Last Admin: 05/04/18 21:29 Dose: 20 mg Clonidine HCl (Catapres-Tts3 0.3 Mg/24 Hr) 1 patch TD Q7D@1000 [facility] Last Admin: 05/02/18 11:39 Dose: 1 patch Darbepoetin Timothy (Aranesp) 25 mcg SC QWK [facility] Last Admin: 04/29/18 17:44 Dose: 25 mcg Darbepoetin Timothy (Aranesp) 100 mcg SC QWK [facility] Last Admin: 04/29/18 17:44 Dose: 100 mcg Docusate Sodium (Colace) 100 mg PO TID [facility] Last Admin: 05/04/18 18:21 Dose: 100 mg Ergocalciferol (Drisdol 50,000 Intl Units Cap) 1 cap PO Q7D [facility] Last Admin: 05/03/18 08:50 Dose: 1 cap Ferrous Gluconate (Fergon) 324 mg PO DAILY [facility] Last Admin: 05/04/18 09:45 Dose: 324 mg Furosemide (Lasix) 40 mg PO DAILY [facility] Last Admin: 05/04/18 09:46 Dose: 40 mg Hydralazine HCl (Apresoline) 100 mg PO Q8 [facility] Last Admin: 05/05/18 06:42 Dose: 100 mg Hydromorphone HCl (Dilaudid) 0.5 mg IVP Q4H PRN PRN Reason: Pain, moderate (4-7) Last Admin: 05/05/18 02:30 Dose: 0.5 mg Insulin Detemir (Levemir) 20 unit SC [facility] Last Admin: 05/04/18 22:07 Dose: Not Given Insulin Human Regular (Humulin R Low) 0 units SC [facility]; Protocol Last Admin: 05/04/18 22:07 Dose: Not Given Isosorbide Mononitrate (Imdur Er) 60 mg PO DAILY [facility] Last Admin: 05/04/18 09:45 Dose: 60 mg Labetalol HCl (Trandate) 20 mg IV Q4 PRN PRN Reason: Other Last Admin: 05/01/18 15:18 Dose: 20 mg Labetalol HCl (Trandate) 200 mg PO TID [facility] Last Admin: 05/04/18 18:22 Dose: 200 mg Levalbuterol HCl (Xopenex) 1.25 mg IH [id number] PRN PRN Reason: Shortness of Breath Last Admin: 05/01/18 19:25 Dose: 1.25 mg Metoclopramide HCl (Reglan) 5 mg PO [facility] Last Admin: 05/04/18 21:29 Dose: 5 mg Nifedipine (Procardia Xl) 60 mg PO QPM [facility] Last Admin: 05/04/18 18:21 Dose: 60 mg Ondansetron HCl (Zofran Inj) 4 mg IVP Q4H PRN PRN Reason: Nausea/Vomiting Last Admin: 05/02/18 14:29 Dose: 4 mg Pantoprazole Sodium (Protonix Ec Tab) 20 mg PO ACB [facility] Last Admin: 05/04/18 09:47 Dose: 20 mg Silver Sulfadiazine (Silvadene 1% 25 Gm) 0 gm TP BID [facility] Last Admin: 05/03/18 18:46 Dose: 1 gm Simethicone (Mylicon Chew Tab) 80 mg PO HS PRN PRN Reason: GI distress Last Admin: 05/03/18 19:00 Dose: 80 mg Vitamin B Complex/Vit C/Folic Acid (Nephro-Holland) 1 tab PO 0800 [facility] Last Admin: 05/04/18 09:46 Dose: 1 tab - Labs Labs: 05/04/18 07:10 05/04/18 07:10 PT 13.5 SECONDS (9.4-12.5) H 04/28/18 07:00 INR 1.17 04/28/18 07:00 APTT 26.6 Seconds (25.1-36.5) 04/28/18 07:00 - Constitutional Appears: Non-toxic, No Acute Distress - Head Exam Head Exam: NORMAL INSPECTION, NORMOCEPHALIC - Eye Exam Eye Exam: Normal appearance Pupil Exam: NORMAL ACCOMODATION - ENT Exam ENT Exam: Mucous Membranes Dry - Cardiovascular Exam Cardiovascular Exam: +S1, +S2 Additional comments: No JVD right chest port - GI/Abdominal Exam GI & Abdominal Exam: Soft, Normal Bowel Sounds Additional comments: colostomy - Extremities Exam Additional comments: 2-3+edema - Neurological Exam Neurological Exam: Alert, Awake - Psychiatric Exam Psychiatric exam: Flat Affect - Skin Skin Exam: Dry, Normal Color, Warm Assessment and Plan - Assessment and Plan (Free Text) Assessment: A 62 year old morbidly obese female who was brought to the ER due to altered mental status. Recently was discharged from [facility] due to small bowel obstruction with resection by Dr. Mckeon. Patient is known to have rectal cancer in the past. with colostomy. History of coronary artery disease with stent of circumflex,hypertension, hyperlipidemia,diabetes, Sleep Apnea, COPD, CHF,history of DVT and PE. CT of head unremarkable, EKG showed NSR, Chest X ray showed moderate CHF however bilateral infiltrate. Recent ECHO LVEF normal.Cardiac status stable.Uncontrolled blood pressure.GI follow up for off and on abdominal pain. Plan: Awake,No distress, Lethargic Denies chest pain or shortness of breath Heart rate controlled Labile blood pressure Labetolol IV PRN On Norvasc 10 mg daily,ASA 81 mg daily,Lovenox 30 mg daily,Lasix 40 mg daily Hydralazine 100 mg TID, Imdur Er 60 mg daily,Labetolol 200 mg TID,Procardia 60 mg daily Clonindine patch. Completed antibiotics ID on consult Nutritional support Continue current treatment Continue current medications Chart reviewed Will follow up Plan and treatment discussed with Dr. Guerrero
[2018-05-05] MEDS: Arformoterol 15 mcg/2 ml Inh Sol IH SCH ×2 (08:10→19:38)
[2018-05-05] MEDS: Pantoprazole 20 mg EC Tab PO SCH (08:57)
[2018-05-05] MEDS: Multivitamin Vitamin B Complex (Nephro-Vite) Tab PO SCH (08:57)
[2018-05-05] MEDS: Insulin Reg-LOW-Coverage SC SCH ×4 (09:04→22:46)
--- NOTE | 2018-05-05 09:55 | CP.PCM.PN ---
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 HTN control on multiple meds; norvasc hydralazine labetalol nifedipine and imdur. hold ARB due to SHELBI. consider to d/c clonidine due her mental status and possible side effect of drowsiness. labetalol increased to 300 mg tid Monitor Input/Output, daily weights and renal function with basic metabolic panel pulmonary ID heme and surgery following PRBC as needed. 2 units [id number]/18. d/w heme and okay to use KAVYA from heme perspective. on weekly aransep 125 mcg (04/29/18) supplement lytes as needed lasix 40 mg oral daily. stopped IVF due to pulm congestion on CXR and respi concerns. Adrenal adenoma work up with plasma renin/aldosterone, plasma metanephrine NEGATIVE. outpt 1 mg dexa suppression test repeat renal sono in 6 months to assess her Rt renal cyst Dose meds/antibiotics for reduced GFR. Avoid fleets enema/magnesium based laxatives. Avoid nephrotoxins/NSAIDs/ iodinated contrast (unless needed emerge ntly) Glycemic control Further work up/management as per primary team Thanks for allowing me to participate in care of your patient. Will follow patient with you. Please call if any Qs. had d/w team Dr Dae Dawn Office: [phone] Chief Complaint;AMS Reason for consult: Acute Kidney Injury, CKD 3 HPI: Pt is a 62 F with hx of diabetes Mellitus (15 years), hypertension (years), CKD 3 with baseline cr 1.2-1.3 with AKIs, morbid obesity, CAD s/p stent, COPD/SUMMER on CPAP, rectal ca s/p colostomy recently admitted for SBP s/p ex-lap, seen for SHELBI and HTN urgency came back with complaints of AMS and fever. renal consult for CKD and SHELBI management. pt has no urine complaints. Denies OTC/herbal meds or NSAIDs No recent iodinated contrast exposure. No obvious episodes of low BP. ROS: c/o abdomen pain today. denies SOB Physical Examination: General Appearance: comfortable,morbidly obese. ill appearing, Vitals reviewed and noted as below Head; Atraumatic, normocephalic ENT: dry mucosa EYES: Pupils are equal, round and reactive to light accommodation. Eye muscles and extraocular movement intact. Sclera is anicteric. Neck; supple no lymphadenopathy, no thyromegaly or bruit Lungs: Normal respiratory rate/effort. Breath sounds bilateral equal, diminished at bases but overall limited exam due to her obesity Heart: normal rate. s1s2 normal. No rub or gallop. Extremities: 2+ edema. No varicose veins Neurological: Patient is much more awake today Skin: Warm and dry. Normal turgor. No rash. Palpitation: Normal elasticity for age Abdomen: Abdomen is s/p ex lap soft. tender Psych: deferred MSK: no joint tenderness or swelling. Digits and nails normal, no deformity : kidney or bladder not palpable Labs/imaging reviewed. Past medical history, past surgical history, family history, social history, allergy reviewed and noted as below Family hx: no hx of CKD. Rest non-contributory PET CT 04/2017: neg CT abdomen: left adrenal adenoma 1.9 cm Rt kidney 2.6 cm hyperdense cyst UA 100 protein, neg for blood renin and roma low, metanehrine WNL PTH 133 Vit D 27 ANCA neg, K/L ratio WNL Objective - Vital Signs/Intake and Output Vital Signs (last 24 hours): Temp Pulse Resp BP Pulse Ox 99 F 95 H 20 171/64 H 98 05/05/18 08:05 05/05/18 08:58 05/05/18 08:05 05/05/18 08:58 05/05/18 08:05 Intake and Output: 05/05/18 05/05/18 06:59 18:59 Intake Total 360 Output Total 351 Balance 9 - Medications Medications: Current Medications Acetaminophen (Tylenol 325mg Tab) 650 mg PO Q4H PRN PRN Reason: Pain, Mild (1-3) Amlodipine Besylate (Norvasc) 10 mg PO DAILY [facility] Last Admin: 05/04/18 09:46 Dose: 10 mg Apixaban (Eliquis) 2.5 mg PO BID [facility]; Protocol Last Admin: 05/04/18 18:21 Dose: 2.5 mg Arformoterol Tartrate (Brovana) 15 mcg IH [id number] [facility] Last Admin: 05/05/18 08:10 Dose: Not Given Armodafinil (Nuvigil 250 Mg Tab) 250 mg PO DAILY [facility] Last Admin: 05/04/18 09:47 Dose: 250 mg Aspirin (Ecotrin) 81 mg PO DAILY [facility] Last Admin: 05/04/18 09:45 Dose: 81 mg Atorvastatin Calcium (Lipitor) 20 mg PO HS [facility] Last Admin: 05/04/18 21:29 Dose: 20 mg Clonidine HCl (Catapres-Tts3 0.3 Mg/24 Hr) 1 patch TD Q7D@1000 [facility] Last Admin: 05/02/18 11:39 Dose: 1 patch Darbepoetin Timothy (Aranesp) 25 mcg SC QWK [facility] Last Admin: 04/29/18 17:44 Dose: 25 mcg Darbepoetin Timothy (Aranesp) 100 mcg SC QWK [facility] Last Admin: 04/29/18 17:44 Dose: 100 mcg Docusate Sodium (Colace) 100 mg PO TID [facility] Last Admin: 05/04/18 18:21 Dose: 100 mg Ergocalciferol (Drisdol 50,000 Intl Units Cap) 1 cap PO Q7D [facility] Last Admin: 05/03/18 08:50 Dose: 1 cap Ferrous Gluconate (Fergon) 324 mg PO DAILY [facility] Last Admin: 05/04/18 09:45 Dose: 324 mg Furosemide (Lasix) 40 mg PO DAILY [facility] Last Admin: 05/04/18 09:46 Dose: 40 mg Hydralazine HCl (Apresoline) 100 mg PO Q8 [facility] Last Admin: 05/05/18 06:42 Dose: 100 mg Hydromorphone HCl (Dilaudid) 0.5 mg IVP Q4H PRN PRN Reason: Pain, moderate (4-7) Last Admin: 05/05/18 08:56 Dose: 0.5 mg Insulin Detemir (Levemir) 20 unit SC [facility] Last Admin: 05/04/18 22:07 Dose: Not Given Insulin Human Regular (Humulin R Low) 0 units SC [facility]; Protocol Last Admin: 05/05/18 09:04 Dose: Not Given Isosorbide Mononitrate (Imdur Er) 60 mg PO DAILY [facility] Last Admin: 05/04/18 09:45 Dose: 60 mg Labetalol HCl (Trandate) 20 mg IV Q4 PRN PRN Reason: Other Last Admin: 05/01/18 15:18 Dose: 20 mg Labetalol HCl (Trandate) 300 mg PO Q8 [facility] Last Admin: 05/05/18 08:58 Dose: 300 mg Levalbuterol HCl (Xopenex) 1.25 mg IH [id number] PRN PRN Reason: Shortness of Breath Last Admin: 05/01/18 19:25 Dose: 1.25 mg Metoclopramide HCl (Reglan) 5 mg PO [facility] Last Admin: 05/05/18 08:57 Dose: 5 mg Nifedipine (Procardia Xl) 60 mg PO QPM [facility] Last Admin: 05/04/18 18:21 Dose: 60 mg Ondansetron HCl (Zofran Inj) 4 mg IVP Q4H PRN PRN Reason: Nausea/Vomiting Last Admin: 05/02/18 14:29 Dose: 4 mg Pantoprazole Sodium (Protonix Ec Tab) 20 mg PO ACB [facility] Last Admin: 05/05/18 08:57 Dose: 20 mg Silver Sulfadiazine (Silvadene 1% 25 Gm) 0 gm TP BID [facility] Last Admin: 05/03/18 18:46 Dose: 1 gm Simethicone (Mylicon Chew Tab) 80 mg PO [facility] PRN PRN Reason: GI distress Last Admin: 05/03/18 19:00 Dose: 80 mg Vitamin B Complex/Vit C/Folic Acid (Nephro-Holland) 1 tab PO 0800 [facility] Last Admin: 05/05/18 08:57 Dose: 1 tab - Labs Labs: 05/04/18 07:10 05/04/18 07:10 PT 13.5 SECONDS (9.4-12.5) H 04/28/18 07:00 INR 1.17 04/28/18 07:00 APTT 26.6 Seconds (25.1-36.5) 04/28/18 07:00
[2018-05-05] MEDS: Armodafinil 250 mg Tab PO SCH (11:31)
--- NOTE | 2018-05-05 12:25 | PN ---
DATE: 05/05/2018 REASON FOR CONSULTATION: Followup cardiac evaluation, coronary artery disease, admitted with altered mental status, lethargy. SUBJECTIVE: The patient complained of abdominal pain, but no chest pain. Not eating or drinking. OBJECTIVE: GENERAL: Not in apparent distress, lying flat on the bed. VITAL SIGNS: Temperature afebrile, heart rate 95, blood pressure 110/65. HEENT: PERRLA. Extraocular muscles intact. NECK: Supple. No carotid bruit or thyromegaly. CHEST: Clear to auscultation. HEART: S1 and S2, regular. ABDOMEN: Soft. Abdomen is under dressing. EXTREMITIES: Clubbing and cyanosis negative. This note is an addition to the noted dictated by nurse practitioner, Tiffanie Osborne. IMPRESSION: A 62-year-old female, obese, with past medical history significant for recent abdominal surgery, admitted with altered mental status, history of rectal cancer, history of colostomy, history of recent small bowel obstruction surgery, sleep apnea, congestive heart failure, history of coronary artery disease, status post stent. Recent echo shows normal EF. CVS status is stable. RECOMMENDATION: Continue surgical and GI evaluation. Continue Norvasc. Continue Imdur. Continue labetalol. Continue clonidine because p.o. meds is unpredictable. We will follow with you. Thank you Dr. Florian for providing us the opportunity in taking care of the patient. Pamela Guerrero MD
--- NOTE | 2018-05-05 14:21 | CP.PCM.PN ---
Subjective - Date & Time of Evaluation Date of Evaluation: 05/05/18 Time of Evaluation: 14:00 - Subjective Subjective: General surgery progress note for Dr. Mckeon Pt seen and examined at bedside. Patient complaining of abdominal pain at the skin at the midline incision site. Patient has been afebrile, CT of abdomen and pelvis yesterday AM showed worsening cellulitis vs fluid collection in the subcutaneous tissue underneath the middle abdominal incision. During would examination, removed 2 donita and probed with sterile Qtip. large amount of serous fluid was expressed from the middle of the incision, but fascia appears to be intact deeply. Cultured fluid, lightly packed with iodoform gauze to wick fluid Objective - Vital Signs/Intake and Output Vital Signs (last 24 hours): Temp Pulse Resp BP Pulse Ox 99 F 95 H 20 171/64 H 98 05/05/18 08:05 05/05/18 08:58 05/05/18 08:05 05/05/18 11:30 05/05/18 08:05 Intake and Output: 05/05/18 05/05/18 06:59 18:59 Intake Total 360 Output Total 351 Balance 9 - Medications Medications: Current Medications Acetaminophen (Tylenol 325mg Tab) 650 mg PO Q4H PRN PRN Reason: Pain, Mild (1-3) Amlodipine Besylate (Norvasc) 10 mg PO DAILY [facility] Last Admin: 05/05/18 11:30 Dose: 10 mg Apixaban (Eliquis) 2.5 mg PO BID [facility]; Protocol Last Admin: 05/05/18 11:29 Dose: 2.5 mg Arformoterol Tartrate (Brovana) 15 mcg IH [id number] [facility] Last Admin: 05/05/18 08:10 Dose: Not Given Armodafinil (Nuvigil 250 Mg Tab) 250 mg PO DAILY [facility] Last Admin: 05/05/18 11:31 Dose: 250 mg Aspirin (Ecotrin) 81 mg PO DAILY [facility] Last Admin: 05/05/18 11:29 Dose: 81 mg Atorvastatin Calcium (Lipitor) 20 mg PO HS [facility] Last Admin: 05/04/18 21:29 Dose: 20 mg Clonidine HCl (Catapres-Tts3 0.3 Mg/24 Hr) 1 patch TD Q7D@1000 [facility] Last Admin: 05/02/18 11:39 Dose: 1 patch Darbepoetin Timothy (Aranesp) 25 mcg SC QWK [facility] Last Admin: 04/29/18 17:44 Dose: 25 mcg Darbepoetin Timothy (Aranesp) 100 mcg SC QWK [facility] Last Admin: 04/29/18 17:44 Dose: 100 mcg Docusate Sodium (Colace) 100 mg PO TID [facility] Last Admin: 05/05/18 11:29 Dose: 100 mg Ergocalciferol (Drisdol 50,000 Intl Units Cap) 1 cap PO Q7D [facility] Last Admin: 05/03/18 08:50 Dose: 1 cap Ferrous Gluconate (Fergon) 324 mg PO DAILY [facility] Last Admin: 05/05/18 11:29 Dose: 324 mg Furosemide (Lasix) 40 mg PO DAILY [facility] Last Admin: 05/05/18 11:30 Dose: 40 mg Hydralazine HCl (Apresoline) 100 mg PO Q8 [facility] Last Admin: 05/05/18 06:42 Dose: 100 mg Hydromorphone HCl (Dilaudid) 0.5 mg IVP Q4H PRN PRN Reason: Pain, moderate (4-7) Last Admin: 05/05/18 08:56 Dose: 0.5 mg Insulin Detemir (Levemir) 20 unit SC [facility] Last Admin: 05/04/18 22:07 Dose: Not Given Insulin Human Regular (Humulin R Low) 0 units SC [facility]; Protocol Last Admin: 05/05/18 09:04 Dose: Not Given Isosorbide Mononitrate (Imdur Er) 60 mg PO DAILY [facility] Last Admin: 05/05/18 11:30 Dose: 60 mg Labetalol HCl (Trandate) 20 mg IV Q4 PRN PRN Reason: Other Last Admin: 05/01/18 15:18 Dose: 20 mg Labetalol HCl (Trandate) 300 mg PO Q8 [facility] Last Admin: 05/05/18 08:58 Dose: 300 mg Levalbuterol HCl (Xopenex) 1.25 mg IH [id number] PRN PRN Reason: Shortness of Breath Last Admin: 05/01/18 19:25 Dose: 1.25 mg Metoclopramide HCl (Reglan) 5 mg PO [facility] Last Admin: 05/05/18 11:33 Dose: 5 mg Nifedipine (Procardia Xl) 60 mg PO QPM [facility] Last Admin: 05/04/18 18:21 Dose: 60 mg Ondansetron HCl (Zofran Inj) 4 mg IVP Q4H PRN PRN Reason: Nausea/Vomiting Last Admin: 05/02/18 14:29 Dose: 4 mg Pantoprazole Sodium (Protonix Ec Tab) 20 mg PO ACB [facility] Last Admin: 05/05/18 08:57 Dose: 20 mg Silver Sulfadiazine (Silvadene 1% 25 Gm) 0 gm TP BID [facility] Last Admin: 05/03/18 18:46 Dose: 1 gm Simethicone (Mylicon Chew Tab) 80 mg PO PCHS PRN PRN Reason: GI distress Last Admin: 05/03/18 19:00 Dose: 80 mg Vitamin B Complex/Vit C/Folic Acid (Nephro-Holland) 1 tab PO 0800 [facility] Last Admin: 05/05/18 08:57 Dose: 1 tab - Labs Labs: 05/04/18 07:10 05/04/18 07:10 PT 13.5 SECONDS (9.4-12.5) H 04/28/18 07:00 INR 1.17 04/28/18 07:00 APTT 26.6 Seconds (25.1-36.5) 04/28/18 07:00 - Constitutional Appears: Well, Non-toxic, No Acute Distress - Head Exam Head Exam: ATRAUMATIC, NORMOCEPHALIC - Eye Exam Eye Exam: Normal appearance. absent: Conjunctival injection, Scleral icterus - ENT Exam ENT Exam: Mucous Membranes Moist, Normal Oropharynx - Respiratory Exam Respiratory Exam: NORMAL BREATHING PATTERN. absent: Accessory Muscle Use, Respiratory Distress - Cardiovascular Exam Cardiovascular Exam: RRR - GI/Abdominal Exam GI & Abdominal Exam: Soft, Tenderness (at the incision, no other abdominal tenderness). absent: Distended, Rebound Additional comments: midline incision mildly excoriated, well approximated with donita and sutures, small area of skin dehiscence in the middle of the incision, probed with a q- tip, large subcutaneous cavity discovered and a large amount of serous fluid was drained--approximately 20-30cc's. No purulent of bloody drainage. Fascia felt intact beneath. Ostomy present patent with stool output mucous fistulas in L abdomen - Neurological Exam Neurological Exam: Alert, Awake, Oriented x3 - Psychiatric Exam Psychiatric exam: Flat Affect, Normal Mood - Skin Skin Exam: Dry, Normal Color, Warm Assessment and Plan - Assessment and Plan (Free Text) Assessment: 62F with seroma beneath midline abdominal incision Plan: Dressing changes as needed for saturation Will continue to allow seroma to drain F/U IR recs Continue to encourage PO intake and monitor ostomy/urine output F/U culture of abdominal incision fluid Discussed with Dr. Mike Upton PGY2
--- NOTE | 2018-05-05 16:56 | CP.PCM.PN ---
Subjective - Date & Time of Evaluation Date of Evaluation: 05/04/18 Time of Evaluation: 18:00 - Subjective Subjective: No acute events ROS: 12 ROS negative Objective - Vital Signs/Intake and Output Vital Signs (last 24 hours): Temp Pulse Resp BP Pulse Ox 99 F 85 20 140/68 98 05/05/18 08:05 05/05/18 15:35 05/05/18 08:05 05/05/18 15:35 05/05/18 08:05 Intake and Output: 05/05/18 05/05/18 06:59 18:59 Intake Total 360 Output Total 351 Balance 9 - Medications Medications: Current Medications Acetaminophen (Tylenol 325mg Tab) 650 mg PO Q4H PRN PRN Reason: Pain, Mild (1-3) Amlodipine Besylate (Norvasc) 10 mg PO DAILY [facility] Last Admin: 05/05/18 11:30 Dose: 10 mg Apixaban (Eliquis) 2.5 mg PO BID [facility]; Protocol Last Admin: 05/05/18 11:29 Dose: 2.5 mg Arformoterol Tartrate (Brovana) 15 mcg IH [id number] [facility] Last Admin: 05/05/18 08:10 Dose: Not Given Armodafinil (Nuvigil 250 Mg Tab) 250 mg PO DAILY [facility] Last Admin: 05/05/18 11:31 Dose: 250 mg Aspirin (Ecotrin) 81 mg PO DAILY [facility] Last Admin: 05/05/18 11:29 Dose: 81 mg Atorvastatin Calcium (Lipitor) 20 mg PO HS [facility] Last Admin: 05/04/18 21:29 Dose: 20 mg Clonidine HCl (Catapres-Tts3 0.3 Mg/24 Hr) 1 patch TD Q7D@1000 [facility] Last Admin: 05/02/18 11:39 Dose: 1 patch Darbepoetin Timothy (Aranesp) 25 mcg SC QWK [facility] Last Admin: 04/29/18 17:44 Dose: 25 mcg Darbepoetin Itmothy (Aranesp) 100 mcg SC QWK [facility] Last Admin: 04/29/18 17:44 Dose: 100 mcg Docusate Sodium (Colace) 100 mg PO TID [facility] Last Admin: 05/05/18 15:36 Dose: 100 mg Ergocalciferol (Drisdol 50,000 Intl Units Cap) 1 cap PO Q7D [facility] Last Admin: 05/03/18 08:50 Dose: 1 cap Ferrous Gluconate (Fergon) 324 mg PO DAILY [facility] Last Admin: 05/05/18 11:29 Dose: 324 mg Furosemide (Lasix) 40 mg PO DAILY [facility] Last Admin: 05/05/18 11:30 Dose: 40 mg Hydralazine HCl (Apresoline) 100 mg PO Q8 [facility] Last Admin: 05/05/18 15:36 Dose: 100 mg Hydromorphone HCl (Dilaudid) 0.5 mg IVP Q4H PRN PRN Reason: Pain, moderate (4-7) Last Admin: 05/05/18 15:36 Dose: 0.5 mg Meropenem (Merrem Iv 1 Gm Premix) 1 gm in 50 mls @ 100 mls/hr IVPB Q12 [facility]; Protocol Stop: 05/14/18 15:40 Micafungin Sodium 100 mg/ (Sodium Chloride) 100 mls @ 100 mls/hr IV 1700 [facility]; P rotocol Insulin Detemir (Levemir) 20 unit SC HS [facility] Last Admin: 05/04/18 22:07 Dose: Not Given Insulin Human Regular (Humulin R Low) 0 units SC ACHS [facility]; Protocol Last Admin: 05/05/18 15:32 Dose: Not Given Isosorbide Mononitrate (Imdur Er) 60 mg PO DAILY [facility] Last Admin: 05/05/18 11:30 Dose: 60 mg Labetalol HCl (Trandate) 20 mg IV Q4 PRN PRN Reason: Other Last Admin: 05/01/18 15:18 Dose: 20 mg Labetalol HCl (Trandate) 300 mg PO Q8 [facility] Last Admin: 05/05/18 15:35 Dose: 300 mg Levalbuterol HCl (Xopenex) 1.25 mg IH [id number] PRN PRN Reason: Shortness of Breath Last Admin: 05/01/18 19:25 Dose: 1.25 mg Metoclopramide HCl (Reglan) 5 mg PO ACHS [facility] Last Admin: 05/05/18 11:33 Dose: 5 mg Nifedipine (Procardia Xl) 60 mg PO QPM [facility] Last Admin: 05/04/18 18:21 Dose: 60 mg Ondansetron HCl (Zofran Inj) 4 mg IVP Q4H PRN PRN Reason: Nausea/Vomiting Last Admin: 05/02/18 14:29 Dose: 4 mg Pantoprazole Sodium (Protonix Ec Tab) 20 mg PO ACB [facility] Last Admin: 05/05/18 08:57 Dose: 20 mg Silver Sulfadiazine (Silvadene 1% 25 Gm) 0 gm TP BID [facility] Last Admin: 05/03/18 18:46 Dose: 1 gm Simethicone (Mylicon Chew Tab) 80 mg PO HS PRN PRN Reason: GI distress Last Admin: 05/03/18 19:00 Dose: 80 mg Vitamin B Complex/Vit C/Folic Acid (Nephro-Holland) 1 tab PO 0800 [facility] Last Admin: 05/05/18 08:57 Dose: 1 tab - Labs Labs: 05/04/18 07:10 05/04/18 07:10 PT 13.5 SECONDS (9.4-12.5) H 04/28/18 07:00 INR 1.17 04/28/18 07:00 APTT 26.6 Seconds (25.1-36.5) 04/28/18 07:00 - Constitutional Appears: Well - Respiratory Exam Respiratory Exam: Clear to Ausculation Bilateral, NORMAL BREATHING PATTERN - Cardiovascular Exam Cardiovascular Exam: REGULAR RHYTHM, +S1, +S2. absent: Murmur - GI/Abdominal Exam GI & Abdominal Exam: Soft, Normal Bowel Sounds. absent: Tenderness - Extremities Exam Extremities Exam: Full ROM, Normal Capillary Refill, Normal Inspection. 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 Heme/onc is consulted for management of elevated ptt which is likely artifict given normal values on repeat testing. Anemia is normocytic per patient she is scheduled for capusle endosopcy later next week? Jacob Faye MD Hematology
--- NOTE | 2018-05-05 16:58 | CP.PCM.PN ---
Subjective - Date & Time of Evaluation Date of Evaluation: 05/05/18 Time of Evaluation: 18:00 - Subjective Subjective: Some abdominal discomfort near what appears to be a seroma per gen surgery. ROS: 12 ROS otherwise negative Objective - Vital Signs/Intake and Output Vital Signs (last 24 hours): Temp Pulse Resp BP Pulse Ox 99 F 85 20 140/68 98 05/05/18 08:05 05/05/18 15:35 05/05/18 08:05 05/05/18 15:35 05/05/18 08:05 Intake and Output: 05/05/18 05/05/18 06:59 18:59 Intake Total 360 Output Total 351 Balance 9 - Medications Medications: Current Medications Acetaminophen (Tylenol 325mg Tab) 650 mg PO Q4H PRN PRN Reason: Pain, Mild (1-3) Amlodipine Besylate (Norvasc) 10 mg PO DAILY [facility] Last Admin: 05/05/18 11:30 Dose: 10 mg Apixaban (Eliquis) 2.5 mg PO BID [facility]; Protocol Last Admin: 05/05/18 11:29 Dose: 2.5 mg Arformoterol Tartrate (Brovana) 15 mcg IH [id number] [facility] Last Admin: 05/05/18 08:10 Dose: Not Given Armodafinil (Nuvigil 250 Mg Tab) 250 mg PO DAILY [facility] Last Admin: 05/05/18 11:31 Dose: 250 mg Aspirin (Ecotrin) 81 mg PO DAILY [facility] Last Admin: 05/05/18 11:29 Dose: 81 mg Atorvastatin Calcium (Lipitor) 20 mg PO HS [facility] Last Admin: 05/04/18 21:29 Dose: 20 mg Clonidine HCl (Catapres-Tts3 0.3 Mg/24 Hr) 1 patch TD Q7D@1000 [facility] Last Admin: 05/02/18 11:39 Dose: 1 patch Darbepoetin Timothy (Aranesp) 25 mcg SC QWK [facility] Last Admin: 04/29/18 17:44 Dose: 25 mcg Darbepoetin Timothy (Aranesp) 100 mcg SC QWK [facility] Last Admin: 04/29/18 17:44 Dose: 100 mcg Docusate Sodium (Colace) 100 mg PO TID [facility] Last Admin: 05/05/18 15:36 Dose: 100 mg Ergocalciferol (Drisdol 50,000 Intl Units Cap) 1 cap PO Q7D [facility] Last Admin: 05/03/18 08:50 Dose: 1 cap Ferrous Gluconate (Fergon) 324 mg PO DAILY [facility] Last Admin: 05/05/18 11:29 Dose: 324 mg Furosemide (Lasix) 40 mg PO DAILY [facility] Last Admin: 05/05/18 11:30 Dose: 40 mg Hydralazine HCl (Apresoline) 100 mg PO Q8 [facility] Last Admin: 05/05/18 15:36 Dose: 100 mg Hydromorphone HCl (Dilaudid) 0.5 mg IVP Q4H PRN PRN Reason: Pain, moderate (4-7) Last Admin: 05/05/18 15:36 Dose: 0.5 mg Meropenem (Merrem Iv 1 Gm Premix) 1 gm in 50 mls @ 100 mls/hr IVPB Q12 [facility]; Protocol Stop: 05/14/18 15:40 Micafungin Sodium 100 mg/ (Sodium Chloride) 100 mls @ 100 mls/hr IV 1700 [facility]; Protocol Insulin Detemir (Levemir) 20 unit SC HS [facility] Last Admin: 05/04/18 22:07 Dose: Not Given Insulin Human Regular (Humulin R Low) 0 units SC ACHS [facility]; Protocol Last Admin: 05/05/18 15:32 Dose: Not Given Isosorbide Mononitrate (Imdur Er) 60 mg PO DAILY [facility] Last Admin: 05/05/18 11:30 Dose: 60 mg Labetalol HCl (Trandate) 20 mg IV Q4 PRN PRN Reason: Other Last Admin: 05/01/18 15:18 Dose: 20 mg Labetalol HCl (Trandate) 300 mg PO Q8 [facility] Last Admin: 05/05/18 15:35 Dose: 300 mg Levalbuterol HCl (Xopenex) 1.25 mg IH [id number] PRN PRN Reason: Shortness of Breath Last Admin: 05/01/18 19:25 Dose: 1.25 mg Metoclopramide HCl (Reglan) 5 mg PO ACHS [facility] Last Admin: 05/05/18 11:33 Dose: 5 mg Nifedipine (Procardia Xl) 60 mg PO QPM [facility] Last Admin: 05/04/18 18:21 Dose: 60 mg Ondansetron HCl (Zofran Inj) 4 mg IVP Q4H PRN PRN Reason: Nausea/Vomiting Last Admin: 05/02/18 14:29 Dose: 4 mg Pantoprazole Sodium (Protonix Ec Tab) 20 mg PO ACB [facility] Last Admin: 05/05/18 08:57 Dose: 20 mg Silver Sulfadiazine (Silvadene 1% 25 Gm) 0 gm TP BID [facility] Last Admin: 05/03/18 18:46 Dose: 1 gm Simethicone (Mylicon Chew Tab) 80 mg PO PCHS PRN PRN Reason: GI distress Last Admin: 05/03/18 19:00 Dose: 80 mg Vitamin B Complex/Vit C/Folic Acid (Nephro-Holland) 1 tab PO 0800 [facility] Last Admin: 05/05/18 08:57 Dose: 1 tab - Labs Labs: 05/04/18 07:10 05/04/18 07:10 PT 13.5 SECONDS (9.4-12.5) H 04/28/18 07:00 INR 1.17 04/28/18 07:00 APTT 26.6 Seconds (25.1-36.5) 04/28/18 07:00 - Constitutional Appears: Well - Respiratory Exam Respiratory Exam: Clear to Ausculation Bilateral, NORMAL BREATHING PATTERN - Cardiovascular Exam Cardiovascular Exam: REGULAR RHYTHM, +S1, +S2. absent: Murmur - GI/Abdominal Exam GI & Abdominal Exam: Soft, Normal Bowel Sounds. absent: Tenderness - Extremities Exam Extremities Exam: Full ROM, Normal Capillary Refill, Normal Inspection. 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 Heme/onc is consulted for management of elevated ptt which is likely artifict given normal values on repeat testing. Anemia is normocytic per patient she is scheduled for capusle endosopcy later next week?
--- NOTE | 2018-05-05 17:49 | PN ---
DATE: 05/05/2018 PULMONARY PROGRESS NOTE REFERRING PHYSICIAN: Elroy Florian MD SUBJECTIVE: She is lying in the bed, head at 45 degrees, on nasal cannula oxygen. Awake, alert. Follows commands. Complaining about abdominal pain, being followed by the surgical team. No shortness of breath, no chest pain. No leg pain or leg swelling. OBJECTIVE: GENERAL: In no acute distress. VITAL SIGNS: Temperature is 98, heart rate is 95, respiratory rate is 20, blood pressure 171/64, pulse ox is 98% on nasal cannula. HEENT: Moist mucous membranes. Crowded airway. Mallampati score is 4. NECK: Supple. No JVD. LUNGS: Have fair airflow with rhonchi. HEART: S1, S2. ABDOMEN: Surgical site covered with strips, has some secretion. Colostomy bag looks okay. Has diffuse abdominal tenderness. EXTREMITIES: There is no edema. NEUROLOGIC: Awake, awake. Follows simple commands. MEDICATIONS: She is on hydralazine 100 mg every eight hours, Aranesp 125 mcg weekly, Brovana inhale twice a day, Catapres patch 0.3 mg weekly, Colace 100 mg three times a day, Dilaudid 0.5 mg IV every four hours as needed, vitamin D 50,000 units weekly, Ecotrin 81 mg daily, Eliquis 2.5 mg twice a day, ferrous gluconate 324 mg daily, insulin coverage, Imdur ER 60 mg daily, Lasix 40 mg daily, Levemir 20 units subcutaneously at bedtime, Lipitor 20 mg at bedtime, Nephro vitamins daily, Norvasc is 10 mg daily, Nuvigil 250 mg daily, Procardia XL 60 mg daily, Protonix 40 mg daily, Reglan 5 mg before meals and at bedtime, labetalol 20 mg every four hours as needed, Tylenol as needed, Xopenex 1.25 mg every six hours as needed, Zofran on as-needed basis. LABORATORY DATA: Reviewed, noted blood sugar this morning of 158. Abdominal wall wound has Celsa and gram-negative rods. IMPRESSION AND PLAN: Status post small-bowel obstruction, status post laparotomy. I think she had a hernia repair, relocation of colostomy, hypoventilation syndrome, history of pulmonary embolism, deep venous thrombosis, hypertension, diabetes, morbid obesity, being treated for sepsis, being followed by Infectious Diseases, Gastroenterology, and surgical team. Case discussed with the family at bedside. All the questions answered. Spoke to nursing staff who is trying to in touch with the surgical team. Pulmonary point of view, continue continuous positive airway pressure while sleeping. Keep head at 45 degrees. Continue bronchodilator. Gastric and deep venous thrombosis prophylaxis. We will continue daytime stimulant. Overall, poor prognosis. Thank you and we will follow with you. Pamela Ayala MD
[2018-05-05] MEDS: Meropenem IV 1 gm in NS 1 GM/50 ML BAG IVPB SCH (18:16)
[2018-05-05] MEDS: NIFEdipine 60 mg ER Tab PO SCH (18:16)
[2018-05-05] MEDS: Micafungin 100 MG in Sodium Chloride 0.9% 100 ML IV SCH (18:32)
--- NOTE | 2018-05-05 20:02 | PN ---
DATE: 05/03/2018 SUBJECTIVE: The patient is lying in the bed next to me. Dr. Benitez examined the patient. The patient is alert, awake, oriented x3. She is wearing still donita in. No pain at this time. Not eating well. She is taking Ensure and Nepro. No respiratory distress. PHYSICAL EXAMINATION: VITAL SIGNS: Temperature 97.8, heart rate 88, blood pressure 145/59, respiration 20, saturating 96%. HEAD AND NECK: Normal. No JVD. CHEST: Clear bilateral. CARDIAC: First sound and second sound normal. There is a systolic murmur in pulmonary area. ABDOMEN: large, obese. Abdomen with some redness and suture line with some . Dillon still on it. EXTREMITIES: Edema less than before. NEUROLOGICAL: She is very weak. She does move her upper and lower extremities, but she is feeling very weak. She is more mentally alert and awake. LABORATORY DATA: On 05/03/2018; white count 8.9, hematocrit 31.8, platelets 244. Her chemistry; sodium 143, potassium 3.8, chloride 113, bicarb 28, BUN 60, creatinine 1.3. Liver function tests; alk phos 142. The patient has laboratory studies including a CT abdomen which shows that it was still pending the results this time. IMPRESSION AND PLAN: 1. The patient has abdominal pain on the surgery site. Notes loss of appetite, it is mainly gastrointestinal complaints. We discussed with Dr. Benitez. We will continue pureed diet. We added Reglan after discussing with him and also continue Nepro as needed 4 times a day if tolerated and she has Zofran as needed plus Protonix. The patient need assistance with eating, however, the one at the surgical team will see the patient. Still have donita on. 2. Morbid obesity; the patient has huge abdominal fat and she is morbidly obese. She is stable, otherwise. She is having obstructive sleep apnea, we will try to maintain the BiPAP which held ventilation and elimination of which could cause narcosis. Continue Provigil as per pulmonary doctor, Dr. Ayala. 3. Insulin-dependent diabetes and insulin stable, continue coverage. 4. Hypertension. Seen by frame tender. Blood pressure stable. Creatinine is coming down. I will continue Lasix as prescribed and Norvasc and followup clinically. 5. Coronary artery disease, history of non-ST myocardial infarction within 2 weeks ago, stable. No chest pain. 6. Generalized weakness. The patient is seen by psychiatrist, discussed with Dr. Arreguin. The patient does not want any psychiatric to see her. We will continue monitor her condition at this time. Continue current treatment. We will followup clinically. The patient has multiple medical problems. Discussed with her son before. 7. History of midline incision due to small bowel obstructions, status post hernia repair. Still some donita in. Still not eating. Complains of pain. We will get surgery to see her and I discussed with about IV antibiotics. Blood culture negative. She is afebrile, white count is normal. We will hold off antibiotics at this time. We will continue to monitor the patient clinically. We will check the CT, still pending. Elroy Florian MD
--- NOTE | 2018-05-05 20:52 | PN ---
DATE: 05/04/2018 SUBJECTIVE: The patient is seen and examined. She was examined and abdominal wall was seen. She was stable. She has no complaints except not eating, abdominal discomfort, abdominal pain and general weakness. PHYSICAL EXAMINATION: As follows: VITAL SIGNS: Temperature is 97.7, heart rate 92, blood pressure is 164/67, respirations 18, saturating 95% on room air. HEENT: Head and neck exam normal. NECK: No JVD. No thyromegaly. CHEST: Clear bilateral. CARDIAC: First sound and second sound normal. ABDOMEN: Obese, with right side colostomy and left side retention mucous cyst. The patient has some midline sutures, some mild redness and obese abdomen, mild tender. EXTREMITIES: Mild edema bilateral. NEUROLOGIC: She is alert, awake, and oriented x3. She has difficulty moving, she moves her toes, she moves her legs but very weak. LABORATORY STUDIES: Show sodium 142, potassium 4.4, chloride 112, bicarbonate 26, BUN 64, creatinine 1.3, blood sugar 98, calcium 9.2. Liver function tests except the alkaline phosphatase is 147. Total protein is normal of 6.7, albumin mildly low of 2.7. The patient also had a CBC which shows white count normal of 9, hemoglobin 9.9, hematocrit 33, and platelets 247. Also, the patient had a CT done which shows large mid left parasagittal ventral wall hernia that contains mesenteric fat with postoperative fluid collection adjacent to the skin closure donita. Infiltrative changes are seen with subcutaneous tissues overlying the sites as well as laterally. Wall thickening is felt to represent residual right colon that extended to the level of the ostomy site. There appears to be fluid and infiltration and granulation tissue scarring in the parasacral space possibly postsurgical origin. Infiltration and also subcutaneous tissue overlying the site as well as laterally extending to the level of the pelvis. Less infiltration in right lateral subcutaneous tissues of the abdomen and upper pelvis. IMPRESSION AND PLAN: 1. Abdominal pain. She was seen by Dr. Benitez. The patient had a colostomy stable, some redness, tenderness and pain. We will discuss with the surgical team. The patient was seen by infectious disease consult who stopped the antibiotics. We will continue followup with the surgical team now, Gastroenterology who recommend Reglan, pureed diet, encourage oral intake. She is at high risk for any endoscopic procedures due to pulmonary hypertension. 2. Generalized weakness, multifactorial. She will need rehab. 3. Morbid obesity, obstructive sleep apnea, chronic obstructive pulmonary disease. Continue bilevel positive airway pressure 05/09 with oxygen. 4: Insulin-dependent diabetes and hypertension, difficult to control. Continue current therapy. She is getting labetalol and Norvasc. 5. Chronic renal insufficiency, acute renal failure. On top of chronic renal insufficiency, the patient's creatinine level is improving. Continue current therapy. Follow up with radiology nurse. 6. Insulin dependent diabetes, seems stable. Blood sugar is in normal range. Encourage oral intake. Plan, continue current therapy. Awaiting for surgical team for evaluation and taking sutures and recommend about any source of pain. All discussed with them at this time. Continue current therapy. The patient will be going to rehabilitation for physical therapy. 7. Stage II decubitus which has been seen before. Continue local wound care. Continue Silvadene and follow up. The patient has difficulty moving. Continue monitor. Elroy Florian MD
[2018-05-05] MEDS: Insulin Detemir 100 units/ml Vial (Levemir) SC SCH (21:30)
--- NOTE | 2018-05-05 21:39 | PN ---
DATE: 05/05/2018 SUBJECTIVE: The patient is in bed in no acute distress, nontoxic. PHYSICAL EXAMINATION: VITAL SIGNS: Temperature is 99, blood pressure is 171/60, respiratory rate 20, heart rate of 95. HEENT: Examination of HEENT is unremarkable. NECK: Supple. LUNGS: Decreased breath sounds. HEART: Normal S1, S2. ABDOMEN: Soft. LABORATORY DATA: Laboratory examination reveals a white count of 9, hemoglobin of 9, platelets of 234. Chemistries reveal a BUN of 64, creatinine of 1.3. Procalcitonin is noted. Urinalysis is noted. Microbiology reveals Celsa famata and gram-negative hong from the wound culture; however, the patient's abdominal wound is not infected, more consistent with colonizer. CAT scan of the abdomen and pelvis on 05/03/2018 is noted and reviewed. No surgical changes. Dr. Upton's progress note from today is reviewed. He did probe a Q-tip into a large subcutaneous cavity, discovered a large amount of serous fluid that was drained consistent with a seroma, not evident on gross examination. ASSESSMENT AND PLAN: A 62-year-old female with post abdominal wall cellulitis, status post small bowel obstruction, ventral hernia, ventral incarcerated area hernia, adenolysis of revision of a colostomy, non-ST elevation myocardial infarction, history of vancomycin-resistant enterococci urinary tract infection, now with severe sepsis, diabetes, hypertension, coronary artery disease, unresectable rectal cancer, status post chemotherapy and radiation. The patient has a Port-A-Cath with super morbid obesity, BMI of 50. At this time with Celsa famata and gram-negative hong. The patient had a collection underneath her abdominal wound. We will empirically start the patient on meropenem at 1 g every 12 hours and follow the patient. The patient appears to be nontoxic. We will check on the cultures that were sent by Dr. Upton. We will also start empiric Mycamine, and celsa may be resistant to fluconazole, pending today's deep wound cultures, drainage of a collection underneath the skin. We will follow with you. Lawrence Cheek MD
[2018-05-06] MEDS: HYDROmorphone 0.5 mg/0.5 ml ISec IVP PRN ×5 (01:14→21:55)
--- NOTE | 2018-05-06 01:29 | PN ---
DATE: 05/05/2018 SUBJECTIVE: This patient was seen and evaluated earlier today. The patient is complaining of abdominal discomfort,especially mid abdomen. The patient's son was at bedside at the time of examination. PHYSICAL EXAMINATION: VITAL SIGNS: Temperature 99, pulse 85, blood pressure is 140/68. HEENT: Atraumatic, anicteric. NECK: Supple. HEART: S1 and S2 are regular. LUNGS: Bilateral air entry present. ABDOMEN: The colostomy was working and there was incision clip still present. Some mild discharge noticed. NEUROLOGIC: Alert, oriented. Moves all the extremities. LABORATORY DATA: There are no recent labs today. Labs done yesterday were reviewed. Hemoglobin 9.9, BUN 64, creatinine 1.3. ASSESSMENT AND PLAN: This is a 62-year-old patient with morbid obesity, pulmonary hypertension. Admitted with abdominal pain. The CT showed some postoperative fluid collection adjacent to the skin closure donita. Presacral space area wound was noted, and the area appears unremarkable. The patient does have small sacral decubitus ulcers. Covered with dressing. The patient has a history of rectal cancer, status post abdominoperineal resection. The patient has a mucous fistula and has a colostomy which has been working. The patient does have status post recent hernia surgery done. The etiology for abdominal discomfort is unclear. The differential diagnosis should include surgical incision wound pain. Gastroparesis ulcer should be taken as a differential diagnosis. I did discuss with Dr. Florian. Would recommend continuing antibiotics as per Infectious Disease. The patient is presently off the antibiotics. The patient has completed the seven days of antibiotics, which are Zyvox and meropenem. If the patient continues to have significant pain, would consider repeating the CT to further evaluate with p.o. contrast. Thank you very much for allowing us to participate in the care of the patient. Gita Benitez MD
--- NOTE | 2018-05-06 06:48 | CP.PCM.PN ---
Subjective - Date & Time of Evaluation Date of Evaluation: 05/06/18 Time of Evaluation: 06:25 - Subjective Subjective: No distress, lying in bed, awake Reason for consultation and follow up: Cardiac evaluation of coronary artery disease, admitted for altered mental status Seen and examined by me and Dr. Guerrero Objective - Vital Signs/Intake and Output Vital Signs (last 24 hours): Temp Pulse Resp BP Pulse Ox 98.0 F 89 19 165/62 H 96 05/05/18 18:00 05/05/18 21:28 05/05/18 18:00 05/05/18 21:28 05/05/18 18:00 Intake and Output: 05/05/18 05/06/18 18:59 06:59 Intake Total 700 Output Total 550 Balance 150 - Medications Medications: Current Medications Acetaminophen (Tylenol 325mg Tab) 650 mg PO Q4H PRN PRN Reason: Pain, Mild (1-3) Last Admin: 05/05/18 22:51 Dose: 650 mg Amlodipine Besylate (Norvasc) 10 mg PO DAILY [facility] Last Admin: 05/05/18 11:30 Dose: 10 mg Apixaban (Eliquis) 2.5 mg PO BID [facility]; Protocol Last Admin: 05/05/18 18:16 Dose: 2.5 mg Arformoterol Tartrate (Brovana) 15 mcg IH [id number] [facility] Last Admin: 05/05/18 19:38 Dose: 15 mcg Armodafinil (Nuvigil 250 Mg Tab) 250 mg PO DAILY [facility] Last Admin: 05/05/18 11:31 Dose: 250 mg Aspirin (Ecotrin) 81 mg PO DAILY [facility] Last Admin: 05/05/18 11:29 Dose: 81 mg Atorvastatin Calcium (Lipitor) 20 mg PO HS [facility] Last Admin: 05/05/18 21:27 Dose: 20 mg Clonidine HCl (Catapres-Tts3 0.3 Mg/24 Hr) 1 patch TD Q7D@1000 [facility] Last Admin: 05/02/18 11:39 Dose: 1 patch Darbepoetin Timothy (Aranesp) 25 mcg SC QWK [facility] Last Admin: 04/29/18 17:44 Dose: 25 mcg Darbepoetin Timothy (Aranesp) 100 mcg SC QWK [facility] Last Admin: 04/29/18 17:44 Dose: 100 mcg Docusate Sodium (Colace) 100 mg PO TID [facility] Last Admin: 05/05/18 18:16 Dose: 100 mg Ergocalciferol (Drisdol 50,000 Intl Units Cap) 1 cap PO Q7D [facility] Last Admin: 05/03/18 08:50 Dose: 1 cap Ferrous Gluconate (Fergon) 324 mg PO DAILY [facility] Last Admin: 05/05/18 11:29 Dose: 324 mg Furosemide (Lasix) 40 mg PO DAILY [facility] Last Admin: 05/05/18 11:30 Dose: 40 mg Hydralazine HCl (Apresoline) 100 mg PO Q8 [facility] Last Admin: 05/05/18 21:27 Dose: 100 mg Hydromorphone HCl (Dilaudid) 0.5 mg IVP Q4H PRN PRN Reason: Pain, moderate (4-7) Last Admin: 05/06/18 01:14 Dose: 0.5 mg Meropenem (Merrem Iv 1 Gm Premix) 1 gm in 50 mls @ 100 mls/hr IVPB Q12 [facility]; Protocol Stop: 05/14/18 15:40 Last Admin: 05/05/18 18:16 Dose: 100 mls/hr Micafungin Sodium 100 mg/ (Sodium Chloride) 100 mls @ 100 mls/hr IV 1700 [facility]; Protocol Last Admin: 05/05/18 18:32 Dose: 100 mls/hr Insulin Detemir (Levemir) 20 unit SC HS [facility] Last Admin: 05/05/18 21:30 Dose: 20 units Insulin Human Regular (Humulin R Low) 0 units SC ACHS [facility]; Protocol Last Admin: 05/05/18 22:46 Dose: Not Given Isosorbide Mononitrate (Imdur Er) 60 mg PO DAILY [facility] Last Admin: 05/05/18 11:30 Dose: 60 mg Labetalol HCl (Trandate) 20 mg IV Q4 PRN PRN Reason: Other Last Admin: 05/01/18 15:18 Dose: 20 mg Labetalol HCl (Trandate) 300 mg PO Q8 [facility] Last Admin: 05/05/18 21:28 Dose: 300 mg Levalbuterol HCl (Xopenex) 1.25 mg IH [id number] PRN PRN Reason: Shortness of Breath Last Admin: 05/01/18 19:25 Dose: 1.25 mg Metoclopramide HCl (Reglan) 5 mg PO ACHS [facility] Last Admin: 05/05/18 21:27 Dose: 5 mg Nifedipine (Procardia Xl) 60 mg PO QPM [facility] Last Admin: 05/05/18 18:16 Dose: 60 mg Ondansetron HCl (Zofran Inj) 4 mg IVP Q4H PRN PRN Reason: Nausea/Vomiting Last Admin: 05/02/18 14:29 Dose: 4 mg Pantoprazole Sodium (Protonix Ec Tab) 20 mg PO ACB [facility] Last Admin: 05/05/18 08:57 Dose: 20 mg Silver Sulfadiazine (Silvadene 1% 25 Gm) 0 gm TP BID [facility] Last Admin: 05/03/18 18:46 Dose: 1 gm Simethicone (Mylicon Chew Tab) 80 mg PO PCHS PRN PRN Reason: GI distress Last Admin: 05/03/18 19:00 Dose: 80 mg Vitamin B Complex/Vit C/Folic Acid (Nephro-Holland) 1 tab PO 0800 [facility] Last Admin: 05/05/18 08:57 Dose: 1 tab - Labs Labs: 05/04/18 07:10 05/04/18 07:10 PT 13.5 SECONDS (9.4-12.5) H 04/28/18 07:00 INR 1.17 04/28/18 07:00 APTT 26.6 Seconds (25.1-36.5) 04/28/18 07:00 - Constitutional Appears: Non-toxic, No Acute Distress - Head Exam Head Exam: NORMAL INSPECTION, NORMOCEPHALIC - Eye Exam Eye Exam: Normal appearance - ENT Exam ENT Exam: Mucous Membranes Dry - Respiratory Exam Respiratory Exam: Decreased Breath Sounds, NORMAL BREATHING PATTERN - Cardiovascular Exam Cardiovascular Exam: +S1, +S2 Additional comments: right chest port - GI/Abdominal Exam GI & Abdominal Exam: Soft, Normal Bowel Sounds Additional comments: colostomy - Extremities Exam Additional comments: 2-3+edema - Neurological Exam Neurological Exam: Alert, Awake - Psychiatric Exam Psychiatric exam: Normal Affect, Normal Mood - Skin Skin Exam: Dry, Normal Color, Warm Assessment and Plan - Assessment and Plan (Free Text) Assessment: A 62 year old morbidly obese female who was brought to the ER due to altered mental status. Recently was discharged from [facility] due to small bowel obstruction with resection by Dr. Mckeon. Patient is known to have rectal cancer in the past. with colostomy. History of coronary artery disease with stent of circumflex,hypertension, hyperlipidemia,diabetes, Sleep Apnea, COPD, CHF,history of DVT and PE. CT of head unremarkable, EKG showed NSR, Chest X ray showed moderate CHF however bilateral infiltrate. Recent ECHO LVEF normal.Cardiac status stable.Uncontrolled blood pressure.GI follow up for off and on abdominal pain. Abdominal wound preliminary report positive for megan famata. ID on consult. On IV antibiotics Plan: Abdominal wound preliminary report positive for megan famata. ID on consult. On IV antibiotics Awake,No distress Denies chest pain or shortness of breath Heart rate controlled Labile blood pressure Labetolol IV PRN Latest Blood pressure SBP 140's-160's On Norvasc 10 mg daily,ASA 81 mg daily,Lovenox 30 mg daily,Lasix 40 mg daily Hydralazine 100 mg TID, Imdur Er 60 mg daily,Labetolol 200 mg TID,Procardia 60 mg daily Clonindine patch. GI and general surgery work up Nutritional support Continue current treatment Continue current medications Chart reviewed Will follow up Plan and treatment discussed with Dr. Guerrero
--- NOTE | 2018-05-06 07:24 | CP.PCM.PN ---
Subjective - Date & Time of Evaluation Date of Evaluation: 05/06/18 Time of Evaluation: 07:23 - Subjective Subjective: Surgery Progress Note - Dr. Mckeon Patient seen and examined at bedside this morning. Patient complains of pain at the "front" of her abdomen without specifying exactly where or the quality of pain. She also endorses appetite loss. She denies nausea and vomiting. Patient also seen earlier this morning by surgery team who changed her wound dressing and checked colostomy. Objective - Vital Signs/Intake and Output Vital Signs (last 24 hours): Temp Pulse Resp BP Pulse Ox 98.0 F 89 19 165/62 H 96 05/05/18 18:00 05/05/18 21:28 05/05/18 18:00 05/05/18 21:28 05/05/18 18:00 - Medications Medications: Current Medications Acetaminophen (Tylenol 325mg Tab) 650 mg PO Q4H PRN PRN Reason: Pain, Mild (1-3) Last Admin: 05/05/18 22:51 Dose: 650 mg Amlodipine Besylate (Norvasc) 10 mg PO DAILY [facility] Last Admin: 05/05/18 11:30 Dose: 10 mg Apixaban (Eliquis) 2.5 mg PO BID [facility]; Protocol Last Admin: 05/05/18 18:16 Dose: 2.5 mg Arformoterol Tartrate (Brovana) 15 mcg IH [id number] [facility] Last Admin: 05/05/18 19:38 Dose: 15 mcg Armodafinil (Nuvigil 250 Mg Tab) 250 mg PO DAILY [facility] Last Admin: 05/05/18 11:31 Dose: 250 mg Aspirin (Ecotrin) 81 mg PO DAILY [facility] Last Admin: 05/05/18 11:29 Dose: 81 mg Atorvastatin Calcium (Lipitor) 20 mg PO HS [facility] Last Admin: 05/05/18 21:27 Dose: 20 mg Clonidine HCl (Catapres-Tts3 0.3 Mg/24 Hr) 1 patch TD Q7D@1000 [facility] Last Admin: 05/02/18 11:39 Dose: 1 patch Darbepoetin Timothy (Aranesp) 25 mcg SC QWK [facility] Last Admin: 04/29/18 17:44 Dose: 25 mcg Darbepoetin Timothy (Aranesp) 100 mcg SC QWK [facility] Last Admin: 04/29/18 17:44 Dose: 100 mcg Docusate Sodium (Colace) 100 mg PO TID [facility] Last Admin: 05/05/18 18:16 Dose: 100 mg Ergocalciferol (Drisdol 50,000 Intl Units Cap) 1 cap PO Q7D [facility] Last Admin: 05/03/18 08:50 Dose: 1 cap Ferrous Gluconate (Fergon) 324 mg PO DAILY [facility] Last Admin: 05/05/18 11:29 Dose: 324 mg Furosemide (Lasix) 40 mg PO DAILY [facility] Last Admin: 05/05/18 11:30 Dose: 40 mg Hydralazine HCl (Apresoline) 100 mg PO Q8 [facility] Last Admin: 05/05/18 21:27 Dose: 100 mg Hydromorphone HCl (Dilaudid) 0.5 mg IVP Q4H PRN PRN Reason: Pain, moderate (4-7) Last Admin: 05/06/18 01:14 Dose: 0.5 mg Meropenem (Merrem Iv 1 Gm Premix) 1 gm in 50 mls @ 100 mls/hr IVPB Q12 [facility]; Protocol Stop: 05/14/18 15:40 Last Admin: 05/05/18 18:16 Dose: 100 mls/hr Micafungin Sodium 100 mg/ (Sodium Chloride) 100 mls @ 100 mls/hr IV 1700 [facility]; Protocol Last Admin: 05/05/18 18:32 Dose: 100 mls/hr Insulin Detemir (Levemir) 20 unit SC HS [facility] Last Admin: 05/05/18 21:30 Dose: 20 units Insulin Human Regular (Humulin R Low) 0 units SC ACHS [facility]; Protocol Last Admin: 05/05/18 22:46 Dose: Not Given Isosorbide Mononitrate (Imdur Er) 60 mg PO DAILY [facility] Last Admin: 05/05/18 11:30 Dose: 60 mg Labetalol HCl (Trandate) 20 mg IV Q4 PRN PRN Reason: Other Last Admin: 05/01/18 15:18 Dose: 20 mg Labetalol HCl (Trandate) 300 mg PO Q8 [facility] Last Admin: 05/05/18 21:28 Dose: 300 mg Levalbuterol HCl (Xopenex) 1.25 mg IH [id number] PRN PRN Reason: Shortness of Breath Last Admin: 05/01/18 19:25 Dose: 1.25 mg Metoclopramide HCl (Reglan) 5 mg PO ACHS [facility] Last Admin: 05/05/18 21:27 Dose: 5 mg Nifedipine (Procardia Xl) 60 mg PO QPM [facility] Last Admin: 05/05/18 18:16 Dose: 60 mg Ondansetron HCl (Zofran Inj) 4 mg IVP Q4H PRN PRN Reason: Nausea/Vomiting Last Admin: 05/02/18 14:29 Dose: 4 mg Pantoprazole Sodium (Protonix Ec Tab) 20 mg PO ACB [facility] Last Admin: 05/05/18 08:57 Dose: 20 mg Silver Sulfadiazine (Silvadene 1% 25 Gm) 0 gm TP BID [facility] Last Admin: 05/03/18 18:46 Dose: 1 gm Simethicone (Mylicon Chew Tab) 80 mg PO PCHS PRN PRN Reason: GI distress Last Admin: 05/03/18 19:00 Dose: 80 mg Vitamin B Complex/Vit C/Folic Acid (Nephro-Holland) 1 tab PO 0800 [facility] Last Admin: 05/05/18 08:57 Dose: 1 tab - Labs Labs: 05/04/18 07:10 05/04/18 07:10 PT 13.5 SECONDS (9.4-12.5) H 04/28/18 07:00 INR 1.17 04/28/18 07:00 APTT 26.6 Seconds (25.1-36.5) 04/28/18 07:00 - Constitutional Appears: Other (Morbidly obese woman resting in bed in no acute distress) - Head Exam Head Exam: ATRAUMATIC, NORMAL INSPECTION, NORMOCEPHALIC - Eye Exam Eye Exam: EOMI, Normal appearance - Neck Exam Neck Exam: Normal Inspection - Respiratory Exam Respiratory Exam: Clear to Ausculation Bilateral, NORMAL BREATHING PATTERN - Cardiovascular Exam Cardiovascular Exam: REGULAR RHYTHM - GI/Abdominal Exam GI & Abdominal Exam: Soft, Tenderness (LUQ and LLQ tenderness to palpation). absent: Bruit, Firm, Guarding, Rigid, Rebound Additional comments: abdominal bandages c/d/i. colostomy c/d/i from the outside. filled with stool residue. - Extremities Exam Extremities Exam: Normal Capillary Refill (strong peripheral pulses bilaterally. UE and LE pitting edema.) - Neurological Exam Neurological Exam: Awake, Oriented x3 (Patient able to state where she is, name, and .) - Psychiatric Exam Psychiatric exam: Normal Affect, Normal Mood - Skin Skin Exam: Dry, Intact, Normal Color, Warm Assessment and Plan - Assessment and Plan (Free Text) Assessment: 62 y/o female s/p ely-stomal hernia repair / SBO w/ revision of colostomy and creation of 2nd superior mucous fistula on 04/08/18 -wound culture pending -continue with wound care -continue with ostomy care -pain control and antiemetics PRN -to OR Th, Dec 6 (in 3 days) -repeat CT scan w/ PO/IV contrast ordered -prepare for surgery: --CXR and EKG done on admission --AM labs --type and cross --cardiology consult for surgery clearance --coags --hold aspirin in 2 days --NPO after midnight case discussed with Dr. Mike Arias PGY1
[2018-05-06] MEDS: Arformoterol 15 mcg/2 ml Inh Sol IH SCH ×2 (07:31→20:35)
[2018-05-06] MEDS: Insulin Reg-LOW-Coverage SC SCH ×4 (08:15→22:51)
--- NOTE | 2018-05-06 08:48 | CP.PCM.PN ---
Subjective - Date & Time of Evaluation Date of Evaluation: 05/06/18 Time of Evaluation: 08:00 - Subjective Subjective: Luan De Paz-Internal Medicine Resident- Hematology Oncology Progress Note Subjective: Patient seen and examined at bedside. No acute events overnight. Patient is awake, alert, responds to verbal stimuli, and follows commands. Admits to baseline abdominal pain and back pain. Offers no new complaints at this time. Denies fever, chills, chest pain, nausea/vomiting. 12 Point ROS negative except as indicated in HPI Physical Examination: - Constitutional Appears: No Acute Distress - Head Exam Head Exam: ATRAUMATIC, NORMOCEPHALIC - Eye Exam Eye Exam: EOMI, Normal appearance - ENT Exam ENT Exam: Mucous Membranes Moist - Neck Exam Neck exam: Positive for: Full Rom, Normal Inspection. Negative for: L ymphadenopathy, Meningismus, Tenderness, Thyromegaly - Respiratory Exam Respiratory Exam: Diminished breath sounds bilateral lower lobes. absent: Accessory Muscle Use, Decreased Breath Sounds, Rales, Rhonchi, Wheezes, Respiratory Distress - Cardiovascular Exam Cardiovascular Exam: REGULAR RHYTHM, RRR, +S1, +S2. absent: Bradycardia, Tachycardia - GI/Abdominal Exam GI & Abdominal Exam: obese, soft, ostomy right mid abdomen - Extremities Exam Extremities exam: negative for clubbing, cyanosis - Neurological Exam Neurological exam: Awake, Alert, Oriented x3 - Psychiatric Exam Psychiatric exam: Normal Affect, Normal Mood - Skin Skin Exam: Dry, Intact, Warm Assessment and Plan: Patient is a 62 year old female with a past medical history significant for rectal adenocarcinoma s/p TECHNICAL TRANSLATOR and loop colostomy, CAD s/p GLORIA, CHF, DM2, HTN, CKD, and DVT/PE on Eliquis who was admitted for evaluation and treatment of altered mental status. Heme/onc is consulted for management of elevated ptt. Elevated PTT - resolved - likely false reading x 1 Rectal Adenocarcinoma - pain control- Dilaudid over morphine as half life is shorter and is hepatically metabolized Anemia - CBC CMP ordered and pending - SPEP, immunofixation, Fe, TIBC, ferritin, B12, folate ordered and pending - s/p transfuse 2 units pRBCS - tentatively scheduled for capusle endosopcy Patient case discussed with and plan approved by attending physician, Dr. Faye. Objective - Vital Signs/Intake and Output Vital Signs (last 24 hours): Temp Pulse Resp BP Pulse Ox 98.5 F 91 H 20 145/57 L 94 L 05/06/18 08:22 05/06/18 08:22 05/06/18 08:22 05/06/18 08:22 05/06/18 08:22 Intake and Output: 05/06/18 05/06/18 06:59 18:59 Intake Total 240 Output Total 275 Balance -35 - Medications Medications: Current Medications Acetaminophen (Tylenol 325mg Tab) 650 mg PO Q4H PRN PRN Reason: Pain, Mild (1-3) Last Admin: 05/05/18 22:51 Dose: 650 mg Amlodipine Besylate (Norvasc) 10 mg PO DAILY [facility] Last Admin: 05/05/18 11:30 Dose: 10 mg Apixaban (Eliquis) 2.5 mg PO BID [facility]; Protocol Last Admin: 05/05/18 18:16 Dose: 2.5 mg Arformoterol Tartrate (Brovana) 15 mcg IH [id number] [facility] Last Admin: 05/06/18 07:31 Dose: 15 mcg Armodafinil (Nuvigil 250 Mg Tab) 250 mg PO DAILY [facility] Last Admin: 05/05/18 11:31 Dose: 250 mg Aspirin (Ecotrin) 81 mg PO DAILY [facility] Last Admin: 05/05/18 11:29 Dose: 81 mg Atorvastatin Calcium (Lipitor) 20 mg PO HS [facility] Last Admin: 05/05/18 21:27 Dose: 20 mg Clonidine HCl (Catapres-Tts3 0.3 Mg/24 Hr) 1 patch TD Q7D@1000 [facility] Last Admin: 05/02/18 11:39 Dose: 1 patch Darbepoetin Timothy (Aranesp) 25 mcg SC QWK [facility] Last Admin: 04/29/18 17:44 Dose: 25 mcg Darbepoetin Timothy (Aranesp) 100 mcg SC QWK [facility] Last Admin: 04/29/18 17:44 Dose: 100 mcg Docusate Sodium (Colace) 100 mg PO TID [facility] Last Admin: 05/05/18 18:16 Dose: 100 mg Ergocalciferol (Drisdol 50,000 Intl Units Cap) 1 cap PO Q7D [facility] Last Admin: 05/03/18 08:50 Dose: 1 cap Ferrous Gluconate (Fergon) 324 mg PO DAILY [facility] Last Admin: 05/05/18 11:29 Dose: 324 mg Furosemide (Lasix) 40 mg PO DAILY [facility] Last Admin: 05/05/18 11:30 Dose: 40 mg Hydralazine HCl (Apresoline) 100 mg PO Q8 [facility] Last Admin: 05/05/18 21:27 Dose: 100 mg Hydromorphone HCl (Dilaudid) 0.5 mg IVP Q4H PRN PRN Reason: Pain, moderate (4-7) Last Admin: 05/06/18 08:22 Dose: 0.5 mg Meropenem (Merrem Iv 1 Gm Premix) 1 gm in 50 mls @ 100 mls/hr IVPB Q12 [facility]; Protocol Stop: 05/14/18 15:40 Last Admin: 05/05/18 18:16 Dose: 100 mls/hr Micafungin Sodium 100 mg/ (Sodium Chloride) 100 mls @ 100 mls/hr IV 1700 [facility]; Protocol Last Admin: 05/05/18 18:32 Dose: 100 mls/hr Insulin Detemir (Levemir) 20 unit SC HS [facility] Last Admin: 05/05/18 21:30 Dose: 20 units Insulin Human Regular (Humulin R Low) 0 units SC ACHS [facility]; Protocol Last Admin: 05/06/18 08:15 Dose: Not Given Isosorbide Mononitrate (Imdur Er) 60 mg PO DAILY [facility] Last Admin: 05/05/18 11:30 Dose: 60 mg Labetalol HCl (Trandate) 20 mg IV Q4 PRN PRN Reason: Other Last Admin: 05/01/18 15:18 Dose: 20 mg Labetalol HCl (Trandate) 300 mg PO Q8 [facility] Last Admin: 05/05/18 21:28 Dose: 300 mg Levalbuterol HCl (Xopenex) 1.25 mg IH [id number] PRN PRN Reason: Shortness of Breath Last Admin: 05/01/18 19:25 Dose: 1.25 mg Metoclopramide HCl (Reglan) 5 mg PO ACHS [facility] Last Admin: 05/05/18 21:27 Dose: 5 mg Nifedipine (Procardia Xl) 60 mg PO QPM [facility] Last Admin: 05/05/18 18:16 Dose: 60 mg Ondansetron HCl (Zofran Inj) 4 mg IVP Q4H PRN PRN Reason: Nausea/Vomiting Last Admin: 05/02/18 14:29 Dose: 4 mg Pantoprazole Sodium (Protonix Ec Tab) 20 mg PO ACB [facility] Last Admin: 05/05/18 08:57 Dose: 20 mg Silver Sulfadiazine (Silvadene 1% 25 Gm) 0 gm TP BID [facility] Last Admin: 05/03/18 18:46 Dose: 1 gm Simethicone (Mylicon Chew Tab) 80 mg PO PCHS PRN PRN Reason: GI distress Last Admin: 05/03/18 19:00 Dose: 80 mg Vitamin B Complex/Vit C/Folic Acid (Nephro-Holland) 1 tab PO 0800 [facility] Last Admin: 05/05/18 08:57 Dose: 1 tab - Labs Labs: 05/04/18 07:10 05/04/18 07:10 PT 13.5 SECONDS (9.4-12.5) H 04/28/18 07:00 INR 1.17 04/28/18 07:00 APTT 26.6 Seconds (25.1-36.5) 04/28/18 07:00
[2018-05-06 10:35] LABS: BASO # 0.03 K/mm3 (0.0-2.0); BASO % 0.4 % (0.0-3.0); EOS # 0.2 (0.0-0.7); GRAN # 5.39 (1.4-6.5); GRAN % 70.3 % (50.0-68.0); HEMOGLOBIN 8.3 g/dL (12.0-16.0); LYMPH # 1.5 (1.2-3.4); LYMPH % 19.9 % (22.0-35.0); MEAN CELL VOLUME 91.9 fl (80.0-105.0); MEAN CORPUSCULAR HEMOGLOBIN 26.8 pg (25.0-35.0); MEAN CORPUSCULAR HGB CONC 29.1 g/dl (31.0-37.0); MEAN PLATELET VOLUME 9.2 fl (7.0-11.0); MONO # 0.6 (0.1-0.6); MONO % 7.4 % (1.0-6.0); RBC 3.1 10^6/uL (3.5-6.1); RED CELL DISTRIBUTION WIDTH 18.1 % (11.5-14.5); WHITE BLOOD COUNT 7.7 10^3/uL (4.5-11.0)
[2018-05-06 10:50] LABS: ALB/GLOB RATIO 0.7 (1.1-1.8); ALBUMIN 2.4 g/dL (3.0-4.8); CALCIUM 8.6 mg/dL (8.4-10.5)
[2018-05-06 10:53] LABS: IRON 29 ug/dL (45-180)
[2018-05-06 11:02] LABS: % IRON SATURATION 20 % (20-55); TOTAL IRON BINDING CAPACITY 144 ug/dL (265-497)
--- NOTE | 2018-05-06 11:26 | CP.PCM.CON ---
History of Present Illness - History of Present Illness History of Present Illness: Palliate consult requested by Dr Paddy Florian Reason: Goals of care 62 year old female who was sent from [facility] on 04/25/18 with generalized weakness, abdominal pain and AMS. CT of head 04/25 and 04/30: showed no acute findings. CT of abdomen 04/29: multiple ventral wall hernias and wide mouth umbilical hernia. inflammatory changes in extra abdominal subcutaneous soft tissue , questionable perirectal inflammatory disease CT of abdomen 05/03: large parasagittal ventral wall hernia that contians mesenteric fat and fluid collection, infiltrative changes in subcutaneous tissue of abdomen and upper pelvis, wall thickening right colon that extends to the level of ostomy site, fluid infiltration and /or granulation changes in presacral space. Micro: Blood urine cultures negative. 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 PSHx: exploratory laparotomy 04/14/2018, lysis of adhesions, ventral hernia repair and colostomy reversion, appendectomy. Social History: Never smoker, no alcohol or drug use. Lives with family Family History: Non contributory. Advance Care Planning: The patient does not have an Advanced Directive and is full code Review of Systems - Review of Systems Review of Systems: morbid obesity - Constitutional Constitutional: Malaise, Sleep Apnea, Weakness - EENT Additional comments: negative - Breasts Additional comments: negative - Cardiovascular Cardiovascular: Dyspnea on Exertion - Respiratory Respiratory: Dyspnea on Exertion - Genitourinary Additional comments: negative - Reproductive: Female Additional comments: negative - Musculoskeletal Musculoskeletal: Limited Range of Motion, Muscle Weakness - Neurological Additional comments: negative - Psychiatric Additional comments: negative - Endocrine Additional Comments: negative Past Patient History - Infectious Disease Hx of Infectious Diseases: None - Tetanus Immunizations Tetanus Immunization: Unknown - Past Social History Smoking Status: Never Smoked - CARDIAC Hx Hypercholesterolemia: Yes (HLD,) Hx Hypertension: Yes - PULMONARY Hx Chronic Obstructive Pulmonary Disease (COPD): Yes - NEUROLOGICAL Hx Neurological Disorder: Yes Hx Dizziness: Yes - HEENT Hx Macular Degeneration: No - RENAL Hx Renal Failure: Yes - ENDOCRINE/METABOLIC Hx Diabetes Mellitus Type 2: Yes - HEMATOLOGICAL/ONCOLOGICAL Hx Blood Disorders: Yes Hx Anemia: Yes - INTEGUMENTARY Hx Dermatological Problems: No - MUSCULOSKELETAL/RHEUMATOLOGICAL Hx Falls: No - GASTROINTESTINAL Hx Gastrointestinal Disorders: Yes (RECTAL CA WITH COLOSTOMY,GI BLEED) Hx Colostomy: Yes Hx Gastroesophageal Reflux: Yes - GENITOURINARY/GYNECOLOGICAL Hx Genitourinary Disorders: Yes (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,UTI) - PSYCHIATRIC Hx Psychophysiologic Disorder: Yes Hx Anxiety: Yes Hx Substance Use: No - SURGICAL HISTORY Hx Appendectomy: Yes Hx Coronary Stent: Yes Hx Vascular Access Device: Yes Other/Comment: colostomy - ANESTHESIA Hx Anesthesia: Yes Hx Anesthesia Reactions: No Hx Malignant Hyperthermia: No Meds Allergies/Adverse Reactions: Allergies Allergy/AdvReac Type Severity Reaction Status Date / Time No Known Allergies Allergy Verified 04/08/18 21:16 - Medications Medications: Current Medications Acetaminophen (Tylenol 325mg Tab) 650 mg PO Q4H PRN PRN Reason: Pain, Mild (1-3) Last Admin: 05/05/18 22:51 Dose: 650 mg Amlodipine Besylate (Norvasc) 10 mg PO DAILY [facility] Last Admin: 05/05/18 11:30 Dose: 10 mg Apixaban (Eliquis) 2.5 mg PO BID [facility]; Protocol Last Admin: 05/05/18 18:16 Dose: 2.5 mg Arformoterol Tartrate (Brovana) 15 mcg IH [id number] [facility] Last Admin: 05/06/18 07:31 Dose: 15 mcg Armodafinil (Nuvigil 250 Mg Tab) 250 mg PO DAILY [facility] Last Admin: 05/05/18 11:31 Dose: 250 mg Aspirin (Ecotrin) 81 mg PO DAILY [facility] Last Admin: 05/05/18 11:29 Dose: 81 mg Atorvastatin Calcium (Lipitor) 20 mg PO HS [facility] Last Admin: 05/05/18 21:27 Dose: 20 mg Clonidine HCl (Catapres-Tts3 0.3 Mg/24 Hr) 1 patch TD Q7D@1000 [facility] Last Admin: 05/02/18 11:39 Dose: 1 patch Darbepoetin Timothy (Aranesp) 25 mcg SC QWK [facility] Last Admin: 04/29/18 17:44 Dose: 25 mcg Darbepoetin Timothy (Aranesp) 100 mcg SC QWK [facility] Last Admin: 04/29/18 17:44 Dose: 100 mcg Docusate Sodium (Colace) 100 mg PO TID [facility] Last Admin: 05/05/18 18:16 Dose: 100 mg Ergocalciferol (Drisdol 50,000 Intl Units Cap) 1 cap PO Q7D [facility] Last Admin: 05/03/18 08:50 Dose: 1 cap Ferrous Gluconate (Fergon) 324 mg PO DAILY [facility] Last Admin: 05/05/18 11:29 Dose: 324 mg Furosemide (Lasix) 40 mg PO DAILY [facility] Last Admin: 05/05/18 11:30 Dose: 40 mg Hydralazine HCl (Apresoline) 100 mg PO Q8 [facility] Last Admin: 05/05/18 21:27 Dose: 100 mg Hydromorphone HCl (Dilaudid) 0.5 mg IVP Q4H PRN PRN Reason: Pain, moderate (4-7) Last Admin: 05/06/18 08:22 Dose: 0.5 mg Meropenem (Merrem Iv 1 Gm Premix) 1 gm in 50 mls @ 100 mls/hr IVPB Q12 [facility]; Protocol Stop: 05/14/18 15:40 Last Admin: 05/05/18 18:16 Dose: 100 mls/hr Micafungin Sodium 100 mg/ (Sodium Chloride) 100 mls @ 100 mls/hr IV 1700 [facility]; Protocol Last Admin: 05/05/18 18:32 Dose: 100 mls/hr Insulin Detemir (Levemir) 20 unit SC HS [facility] Last Admin: 05/05/18 21:30 Dose: 20 units Insulin Human Regular (Humulin R Low) 0 units SC ACHS [facility]; Protocol Last Admin: 05/06/18 08:15 Dose: Not Given Isosorbide Mononitrate (Imdur Er) 60 mg PO DAILY [facility] Last Admin: 05/05/18 11:30 Dose: 60 mg Labetalol HCl (Trandate) 20 mg IV Q4 PRN PRN Reason: Other Last Admin: 05/01/18 15:18 Dose: 20 mg Labetalol HCl (Trandate) 300 mg PO Q8 [facility] Last Admin: 05/05/18 21:28 Dose: 300 mg Levalbuterol HCl (Xopenex) 1.25 mg IH [id number] PRN PRN Reason: Shortness of Breath Last Admin: 05/01/18 19:25 Dose: 1.25 mg Metoclopramide HCl (Reglan) 5 mg PO ACHS [facility] Last Admin: 05/05/18 21:27 Dose: 5 mg Nifedipine (Procardia Xl) 60 mg PO QPM [facility] Last Admin: 05/05/18 18:16 Dose: 60 mg Ondansetron HCl (Zofran Inj) 4 mg IVP Q4H PRN PRN Reason: Nausea/Vomiting Last Admin: 05/02/18 14:29 Dose: 4 mg Pantoprazole Sodium (Protonix Ec Tab) 20 mg PO ACB [facility] Last Admin: 05/05/18 08:57 Dose: 20 mg Silver Sulfadiazine (Silvadene 1% 25 Gm) 0 gm TP BID [facility] Last Admin: 05/03/18 18:46 Dose: 1 gm Simethicone (Mylicon Chew Tab) 80 mg PO PCHS PRN PRN Reason: GI distress Last Admin: 05/03/18 19:00 Dose: 80 mg Vitamin B Complex/Vit C/Folic Acid (Nephro-Holland) 1 tab PO 0800 [facility] Last Admin: 05/05/18 08:57 Dose: 1 tab Physical Exam - Constitutional Appears: Chronically Ill Additional comments: morbidly obese - Eye Exam Eye Exam: Normal appearance, PERRL - ENT Exam ENT Exam: Mucous Membranes Moist, Normal Oropharynx - Respiratory Exam Respiratory Exam: Decreased Breath Sounds, Rhonchi - Cardiovascular Exam Cardiovascular Exam: Tachycardia, +S1, +S2 - GI/Abdominal Exam GI & Abdominal Exam: Normal Bowel Sounds, Soft, Tenderness Additional comments: midline suture site dry, mild erythema - Extremities Exam Extremities exam: Positive for: pedal pulses present Additional comments: 1+ edema of both lower extremities - Skin Skin Exam: Dry, Pallor, Warm - Additional Findings Additional findings: palliative performance scale rating 30 % Results - Vital Signs Recent Vital Signs: Last Vital Signs Temp 98.5 F 05/06/18 08:22 Pulse 91 H 05/06/18 08:22 Resp 20 05/06/18 08:22 BP 145/57 L 05/06/18 08:22 Pulse Ox 94 L 05/06/18 08:22 - Labs Result Diagrams: 05/06/18 10:20 05/06/18 10:20 Labs: Laboratory Results - last 24 hr 05/05/18 05/05/18 05/05/18 11:40 16:21 21:27 WBC RBC Hgb Hct MCV MCH MCHC RDW Plt Count MPV Gran % Lymph % (Auto) [place] % (Auto) Eos % (Auto) Baso % (Auto) Gran # Lymph # (Auto) [place] # (Auto) Eos # (Auto) Baso # (Auto) Sodium Potassium Chloride Carbon Dioxide Anion Gap BUN Creatinine Est GFR ( Amer) Est GFR (Non-Af Amer) POC Glucose (mg/dL) 158 H 148 H 150 H Random Glucose Calcium Iron TIBC % Saturation Total Bilirubin AST ALT Alkaline Phosphatase Total Protein Albumin Globulin Albumin/Globulin Ratio 05/06/18 05/06/18 05/06/18 07:13 10:20 10:20 WBC 7.7 RBC 3.10 L Hgb 8.3 L Hct 28.5 L MCV 91.9 MCH 26.8 MCHC 29.1 L RDW 18.1 H Plt Count 208 MPV 9.2 Gran % 70.3 H Lymph % (Auto) 19.[address] [place] % (Auto) 7.4 H Eos % (Auto) 2.0 Baso % (Auto) 0.4 Gran # 5.39 Lymph # (Auto) 1.5 [place] # (Auto) 0.6 Eos # (Auto) 0.2 Baso # (Auto) 0.03 Sodium Potassium Chloride Carbon Dioxide Anion Gap BUN Creatinine Est GFR ( Amer) Est GFR (Non-Af Amer) POC Glucose (mg/dL) 143 H Random Glucose Calcium Iron 29 L TIBC 144 L % Saturation 20 Total Bilirubin AST ALT Alkaline Phosphatase Total Protein Albumin Globulin Albumin/Globulin Ratio 05/06/18 10:20 WBC RBC Hgb Hct MCV MCH MCHC RDW Plt Count MPV Gran % Lymph % (Auto) [place] % (Auto) Eos % (Auto) Baso % (Auto) Gran # Lymph # (Auto) [place] # (Auto) Eos # (Auto) Baso # (Auto) Sodium 141 Potassium 4.2 Chloride 110 H Carbon Dioxide 28 Anion Gap 8 L BUN 63 H Creatinine 1.7 H Est GFR ( Amer) 37 Est GFR (Non-Af Amer) 30 POC Glucose (mg/dL) Random Glucose 126 H Calcium 8.6 Iron TIBC % Saturation Total Bilirubin 0.2 AST 27 ALT 23 Alkaline Phosphatase 121 Total Protein 5.8 Albumin 2.4 L Globulin 3.5 Albumin/Globulin Ratio 0.7 L Assessment & Plan - Assessment and Plan (Free Text) Assessment: 62 year old female with multiple medical comorbidities (see PMH) who is admitted with weakness,deconditioning, infected abdominal wound + Celsa and Psuedomonas, SHELBI in CKD,anemia, hyperglycemia,respiratory insufficiency. The patient is alert and oriented. She is aware of her medical conditions. Goals of care discussion ensued. The patient intends to continue all current medical treatment as prescribed by her doctors. She does not have an advanced directive. When asked her resuscitation wishes, she stated that she was unsure, she indicated that I should speak with her son Rajat regarding this matter. She indicated that she is uncomfortable speaking about end of life planning. She stated that her son Rajat would make all medical decisions for her. Time spent with patient in goals of care and advance care planning, 20 minutes Plan: Goals of care and advance care planning Generalized weakness/ deconditioining: PT/OT> rehab. COPD/sleep apnea: Pulmonary following, BIPAP at night, head of bed at 45 degreees, bronchodilators ID following, continue empiric Merrem and Micafungin. Cardio: Continue Hydralazine, Imdur, Labetelol, Norvasc, Lipitor, Ecotrin, Clonidine. DVT: Continue Elequis Morbid obesity: Dietary counseling
[2018-05-06] MEDS: Multivitamin Vitamin B Complex (Nephro-Vite) Tab PO SCH (11:47)
--- NOTE | 2018-05-06 11:47 | CP.PCM.PN ---
Subjective - Date & Time of Evaluation Date of Evaluation: 05/06/18 Time of Evaluation: 11:46 - Subjective Subjective: Nephrology Consultation Note: Assessment: altered mental status: fluctuating SBO s/p ex lap Acute Kidney Injury (N17.9) likely pre-renal state left adrenal adenoma, Rt renal hyperdense cyst chronic hypercapnic respi failure Diabetic chronic Kidney Disease (E11.22) Hypertensive Chronic Kidney Disease (I12.9) Chronic Kidney Disease (N18.3) Stage 3 with 2.4 gm proteinuria (R80.9) likely due to DM/HTN/Obesity Anemia Vit D def morbid obesity, CAD s/p stent, COPD/SUMMER, rectal ca s/p colostomy Plan No acute need for renal replacement therapy at this time. HTN control on multiple meds; norvasc hydralazine labetalol nifedipine and imdur. hold ARB due to SHELBI. consider to d/c clonidine due her mental status and possible side effect of drowsiness. labetalol increased to 300 mg tid Monitor Input/Output, daily weights and renal function with basic metabolic panel pulmonary ID heme and surgery following PRBC as needed. 2 units /16/18. d/w heme and okay to use KAVYA from heme perspective. on weekly aransep 125 mcg (04/29/18) supplement lytes as needed lasix 40 mg oral daily. stopped IVF due to pulm congestion on CXR and respi concerns. Adrenal adenoma work up with plasma renin/aldosterone, plasma metanephrine NEGATIVE. outpt 1 mg dexa suppression test repeat renal sono in 6 months to assess her Rt renal cyst Dose meds/antibiotics for reduced GFR. Avoid fleets enema/magnesium based laxatives. Avoid nephrotoxins/NSAIDs/ iodinated contrast (unless needed emerge ntly) Glycemic control Further work up/management as per primary team Thanks for allowing me to participate in care of your patient. Will follow patient with you. Please call if any Qs. had d/w team Dr Dae Dawn Office: [phone] Chief Complaint;AMS Reason for consult: Acute Kidney Injury, CKD 3 HPI: Pt is a 62 F with hx of diabetes Mellitus (15 years), hypertension (years), CKD 3 with baseline cr 1.2-1.3 with AKIs, morbid obesity, CAD s/p stent, COPD/SUMMER on CPAP, rectal ca s/p colostomy recently admitted for SBP s/p ex-lap, seen for SHELBI and HTN urgency came back with complaints of AMS and fever. renal consult for CKD and SHELBI management. pt has no urine complaints. Denies OTC/herbal meds or NSAIDs No recent iodinated contrast exposure. No obvious episodes of low BP. ROS: c/o abdomen pain same. denies SOB Physical Examination: General Appearance: comfortable,morbidly obese. better appearing, Vitals reviewed and noted as below Head; Atraumatic, normocephalic ENT: dry mucosa EYES: Pupils are equal, round and reactive to light accommodation. Eye muscles and extraocular movement intact. Sclera is anicteric. Neck; supple no lymphadenopathy, no thyromegaly or bruit Lungs: Normal respiratory rate/effort. Breath sounds bilateral equal, diminished at bases but overall limited exam due to her obesity Heart: normal rate. s1s2 normal. No rub or gallop. Extremities: 2+ edema. No varicose veins Neurological: Patient is much more awake follwo commands Skin: Warm and dry. Normal turgor. No rash. Palpitation: Normal elasticity for age Abdomen: Abdomen is s/p ex lap soft. tender Psych: deferred MSK: no joint tenderness or swelling. Digits and nails normal, no deformity : kidney or bladder not palpable Labs/imaging reviewed. Past medical history, past surgical history, family history, social history, allergy reviewed and noted as below Family hx: no hx of CKD. Rest non-contributory PET CT 04/2017: neg CT abdomen: left adrenal adenoma 1.9 cm Rt kidney 2.6 cm hyperdense cyst UA 100 protein, neg for blood renin and roma low, metanehrine WNL PTH 133 Vit D 27 ANCA neg, K/L ratio WNL Objective - Vital Signs/Intake and Output Vital Signs (last 24 hours): Temp Pulse Resp BP Pulse Ox 98.5 F 91 H 20 145/57 L 94 L 05/06/18 08:22 05/06/18 08:22 05/06/18 08:22 05/06/18 08:22 05/06/18 08:22 Intake and Output: 05/06/18 05/06/18 06:59 18:59 Intake Total 240 Output Total 275 Balance -35 - Medications Medications: Current Medications Acetaminophen (Tylenol 325mg Tab) 650 mg PO Q4H PRN PRN Reason: Pain, Mild (1-3) Last Admin: 05/05/18 22:51 Dose: 650 mg Amlodipine Besylate (Norvasc) 10 mg PO DAILY [facility] Last Admin: 05/05/18 11:30 Dose: 10 mg Apixaban (Eliquis) 2.5 mg PO BID [facility]; Protocol Last Admin: 05/05/18 18:16 Dose: 2.5 mg Arformoterol Tartrate (Brovana) 15 mcg IH [id number] [facility] Last Admin: 05/06/18 07:31 Dose: 15 mcg Armodafinil (Nuvigil 250 Mg Tab) 250 mg PO DAILY [facility] Last Admin: 05/05/18 11:31 Dose: 250 mg Aspirin (Ecotrin) 81 mg PO DAILY [facility] Last Admin: 05/05/18 11:29 Dose: 81 mg Atorvastatin Calcium (Lipitor) 20 mg PO HS [facility] Last Admin: 05/05/18 21:27 Dose: 20 mg Clonidine HCl (Catapres-Tts3 0.3 Mg/24 Hr) 1 patch TD Q7D@1000 [facility] Last Admin: 05/02/18 11:39 Dose: 1 patch Darbepoetin Timothy (Aranesp) 25 mcg SC QWK [facility] Last Admin: 04/29/18 17:44 Dose: 25 mcg Darbepoetin Timothy (Aranesp) 100 mcg SC QWK [facility] Last Admin: 04/29/18 17:44 Dose: 100 mcg Docusate Sodium (Colace) 100 mg PO TID [facility] Last Admin: 05/05/18 18:16 Dose: 100 mg Ergocalciferol (Drisdol 50,000 Intl Units Cap) 1 cap PO Q7D [facility] Last Admin: 05/03/18 08:50 Dose: 1 cap Ferrous Gluconate (Fergon) 324 mg PO DAILY [facility] Last Admin: 05/05/18 11:29 Dose: 324 mg Furosemide (Lasix) 40 mg PO DAILY [facility] Last Admin: 05/05/18 11:30 Dose: 40 mg Hydralazine HCl (Apresoline) 100 mg PO Q8 [facility] Last Admin: 05/05/18 21:27 Dose: 100 mg Hydromorphone HCl (Dilaudid) 0.5 mg IVP Q4H PRN PRN Reason: Pain, moderate (4-7) Last Admin: 05/06/18 08:22 Dose: 0.5 mg Meropenem (Merrem Iv 1 Gm Premix) 1 gm in 50 mls @ 100 mls/hr IVPB Q12 [facility]; Protocol Stop: 05/14/18 15:40 Last Admin: 05/05/18 18:16 Dose: 100 mls/hr Micafungin Sodium 100 mg/ (Sodium Chloride) 100 mls @ 100 mls/hr IV 1700 [facility]; Protocol Last Admin: 05/05/18 18:32 Dose: 100 mls/hr Insulin Detemir (Levemir) 20 unit SC HS [facility] Last Admin: 05/05/18 21:30 Dose: 20 units Insulin Human Regular (Humulin R Low) 0 units SC ACHS [facility]; Protocol Last Admin: 05/06/18 08:15 Dose: Not Given Isosorbide Mononitrate (Imdur Er) 60 mg PO DAILY [facility] Last Admin: 05/05/18 11:30 Dose: 60 mg Labetalol HCl (Trandate) 20 mg IV Q4 PRN PRN Reason: Other Last Admin: 05/01/18 15:18 Dose: 20 mg Labetalol HCl (Trandate) 300 mg PO Q8 [facility] Last Admin: 05/05/18 21:28 Dose: 300 mg Levalbuterol HCl (Xopenex) 1.25 mg IH [id number] PRN PRN Reason: Shortness of Breath Last Admin: 05/01/18 19:25 Dose: 1.25 mg Metoclopramide HCl (Reglan) 5 mg PO ACHS [facility] Last Admin: 05/05/18 21:27 Dose: 5 mg Nifedipine (Procardia Xl) 60 mg PO QPM [facility] Last Admin: 05/05/18 18:16 Dose: 60 mg Ondansetron HCl (Zofran Inj) 4 mg IVP Q4H PRN PRN Reason: Nausea/Vomiting Last Admin: 05/02/18 14:29 Dose: 4 mg Pantoprazole Sodium (Protonix Ec Tab) 20 mg PO ACB [facility] Last Admin: 05/05/18 08:57 Dose: 20 mg Silver Sulfadiazine (Silvadene 1% 25 Gm) 0 gm TP BID [facility] Last Admin: 05/03/18 18:46 Dose: 1 gm Simethicone (Mylicon Chew Tab) 80 mg PO HS PRN PRN Reason: GI distress Last Admin: 05/03/18 19:00 Dose: 80 mg Vitamin B Complex/Vit C/Folic Acid (Nephro-Holland) 1 tab PO 0800 [facility] Last Admin: 05/05/18 08:57 Dose: 1 tab - Labs Labs: 05/06/18 10:20 05/06/18 10:20 PT 13.5 SECONDS (9.4-12.5) H 04/28/18 07:00 INR 1.17 04/28/18 07:00 APTT 26.6 Seconds (25.1-36.5) 04/28/18 07:00
[2018-05-06] MEDS: Pantoprazole 20 mg EC Tab PO SCH (11:48)
[2018-05-06] MEDS: Armodafinil 250 mg Tab PO SCH (11:48)
[2018-05-06] MEDS: Silver Sulfadiazine 1% Cream (25 gm) TP SCH ×2 (11:49→17:53)
[2018-05-06] MEDS: Meropenem IV 1 gm in NS 1 GM/50 ML BAG IVPB SCH ×2 (11:54→21:29)
[2018-05-06] MEDS: Darbepoetin Alfa 100 mcg/ml Inj SC SCH (15:11)
[2018-05-06] MEDS: Darbepoetin Alfa 25 mcg/ml Inj SC SCH (15:12)
[2018-05-06 17:37] LABS: FOLATE > 20.0 ng/mL
[2018-05-06] MEDS: Micafungin 100 MG in Sodium Chloride 0.9% 100 ML IV SCH (17:52)
--- NOTE | 2018-05-06 18:04 | PN ---
DATE: 05/06/2018 REASON FOR CONSULTATION AND FOLLOWUP: Cardiac evaluation, history of coronary artery disease, admitted with altered mental status, morbid obesity, status post abdominal surgery for subacute small bowel obstruction. The patient denies any chest pain, but complained of pain at the operative site. This note is an addition to the note dictated by the nurse practitioner, Tiffanie Osborne. The patient's recent echo shows preserved LV function. Chest x-ray shows moderate CHF; however, infiltrate. The patient denies any chest pain, shortness of breath, or any palpitation. RECOMMENDATIONS: Continue antibiotics, continue diuretics to keep negative fluid balance. Continue Eliquis for DVT and PE. Monitor I's and O's and monitor electrolytes. The patient's anemia is 8.3, going down . If hemoglobin goes below, consider packed RBC transfusion. Renal insufficiency, ask nursing care to call the residential subcontractor for evaluation of abdominal wound. We will follow with you. Thank you for providing us the opportunity in taking care of the patient, Ismael Vasquez. Pamela Guerrero MD
[2018-05-06] MEDS: NIFEdipine 60 mg ER Tab PO SCH (18:12)
--- NOTE | 2018-05-06 20:09 | PN ---
DATE: 05/06/2018 PULMONARY PROGRESS NOTE REFERRING PHYSICIAN: Dr. Florian. SUBJECTIVE: The patient in bed sleeping, easily arousable, alert, and verbal. No headache, nasal congestion, cough, shortness of breath, constipation, diarrhea, and leg pain. Legs swelling reported. The patient does report abdominal pain on palpation. She reports she did not wear CPAP machine last night. OBJECTIVE: VITAL SIGNS: Blood pressure 145/57, pulse 91, temperature 98.5, saturations 94%. GENERAL: No acute distress. HEENT: . Moist mucous membranes. Crowded airway. Mallampati score is 4. NECK: Supple. No JVD. LUNGS: Fair airflow. CARDIOVASCULAR: S1 and S2. ABDOMEN: Colostomy on right side of abdomen, surgical site with in place. Abdominal tenderness on palpation. EXTREMITIES: +1 edema bilaterally. NEUROLOGIC: Awake, alert, verbal, able to follow simple commands. LABORATORY DATA: Reviewed. WBC 7.7, RBC , hemoglobin 8.3, hematocrit 38.5, and platelets 208. Sodium 141, potassium 4.2, chloride 110, carbon dioxide 28, anion gap 8, BUN 63, creatinine 1.7. GFR 30. Random glucose 126. Calcium 8.6, total bilirubin 0.2, AST 27, ALT 23, alkaline phosphatase 121, total protein 5.8, albumin 2.4, globulin 3.5, albumin-globulin ratio is 0.7. MEDICATIONS: Reviewed. Tylenol 650 mg every 4 hours as needed, Norvasc 10 mg p.o. daily, Eliquis 2.5 mg p.o. twice a day, Brovana 15 mcg inhalation every 12 hours, Nuvigil 250 mg p.o. daily, aspirin 81 mg p.o. daily, Lipitor 20 mg at bedtime, clonidine patch 0.3 mg every 24 hours, Aranesp 125 mcg subcutaneously weekly, Colace 100 mg 3 times a day, 50,000 units 1 cap weekly, ferrous gluconate 324 mg daily, Lasix 40 mg daily, hydralazine 100 mg every 8 hours, Dilaudid 0.5 mg IV push every 4 hours p.r.n., Levemir 20 units subcutaneously at bedtime, Humulin R sliding scale, isosorbide mononitrate 60 mg p.o. daily, Vivitrol 25 mg IV every 4 hours as needed, Vivitrol 300 mg p.o. every 8 hours, Xopenex inhalation every 6 hours p.r.n., meropenem 1 g every 12 hours, Reglan 5 mg at a.c. at bedtime, micafungin sodium 100 mg daily, Procardia XL 60 Mg daily, Zofran 4 mg every 4 hours p.r.n., Protonix 20 mg daily, Silvadene twice a day to affected area, simethicone 80 mg p.o. p.r.n. at bedtime, and vitamin B complex 1 tablet daily. IMPRESSION AND PLAN: Status post small bowel obstruction, status post laparotomy, relocation of colostomy, status post hernia repair, hypoventilation syndrome, history of pulmonary embolism, deep vein thrombosis, hypertension, diabetes, morbid obesity followed by Infectious Disease, Gastroenterology and surgical team. The patient is being treated for sepsis. Recommend surgical followup, pulmonary point of view. Continue CPAP use at bedtime. Encourage the patient to use CPAP at bedtime. Keep head of bed elevated 45 degrees. Continue bronchodilator. Gastric prophylaxis, deep vein thrombosis prophylaxis. Continue daytime stimulant. Continue anticoagulation therapy. The patient was seen and examined with Dr. Ayala. Discussed assessment and plan as described as above. Thank you for this consult and we will follow with you. Breezy Schafer APN
--- NOTE | 2018-05-06 21:02 | CP.PCM.PN ---
Subjective - Date & Time of Evaluation Date of Evaluation: 05/06/18 Time of Evaluation: 09:45 - Subjective Subjective: No increase in abdominal pain, no fevers. Objective - Vital Signs/Intake and Output Vital Signs (last 24 hours): Temp Pulse Resp BP Pulse Ox 98.9 F 90 20 159/57 H 94 L 05/06/18 18:00 05/06/18 18:00 05/06/18 18:00 05/06/18 18:12 05/06/18 18:00 - Medications Medications: Current Medications Acetaminophen (Tylenol 325mg Tab) 650 mg PO Q4H PRN PRN Reason: Pain, Mild (1-3) Last Admin: 05/06/18 20:07 Dose: 650 mg Amlodipine Besylate (Norvasc) 10 mg PO DAILY [facility] Last Admin: 05/06/18 11:56 Dose: 10 mg Apixaban (Eliquis) 2.5 mg PO BID [facility]; Protocol Last Admin: 05/06/18 18:11 Dose: 2.5 mg Arformoterol Tartrate (Brovana) 15 mcg IH [id number] [facility] Last Admin: 05/06/18 07:31 Dose: 15 mcg Armodafinil (Nuvigil 250 Mg Tab) 250 mg PO DAILY [facility] Last Admin: 05/06/18 11:48 Dose: 250 mg Aspirin (Ecotrin) 81 mg PO DAILY [facility] Last Admin: 05/06/18 11:46 Dose: 81 mg Atorvastatin Calcium (Lipitor) 20 mg PO HS [facility] Last Admin: 05/05/18 21:27 Dose: 20 mg Clonidine HCl (Catapres-Tts3 0.3 Mg/24 Hr) 1 patch TD Q7D@1000 [facility] Last Admin: 05/02/18 11:39 Dose: 1 patch Darbepoetin Timothy (Aranesp) 25 mcg SC QWK [facility] Last Admin: 05/06/18 15:12 Dose: 25 mcg Darbepoetin Timothy (Aranesp) 100 mcg SC QWK [facility] Last Admin: 05/06/18 15:11 Dose: 100 mcg Docusate Sodium (Colace) 100 mg PO TID [facility] Last Admin: 05/06/18 18:11 Dose: 100 mg Ergocalciferol (Drisdol 50,000 Intl Units Cap) 1 cap PO Q7D [facility] Last Admin: 05/03/18 08:50 Dose: 1 cap Ferrous Gluconate (Fergon) 324 mg PO DAILY [facility] Last Admin: 05/06/18 11:47 Dose: 324 mg Furosemide (Lasix) 40 mg PO DAILY [facility] Last Admin: 05/06/18 11:53 Dose: 40 mg Hydralazine HCl (Apresoline) 100 mg PO Q8 [facility] Last Admin: 05/06/18 15:02 Dose: 100 mg Hydromorphone HCl (Dilaudid) 0.5 mg IVP Q4H PRN PRN Reason: Pain, moderate (4-7) Last Admin: 05/06/18 18:13 Dose: 0.5 mg Meropenem (Merrem Iv 1 Gm Premix) 1 gm in 50 mls @ 100 mls/hr IVPB Q12 [facility]; Pro tocol Stop: 05/14/18 15:40 Last Admin: 05/06/18 11:54 Dose: 100 mls/hr Micafungin Sodium 100 mg/ (Sodium Chloride) 100 mls @ 100 mls/hr IV 1700 [facility]; Protocol Last Admin: 05/06/18 17:52 Dose: 100 mls/hr Insulin Detemir (Levemir) 20 unit SC HS [facility] Last Admin: 05/05/18 21:30 Dose: 20 units Insulin Human Regular (Humulin R Low) 0 units SC ACHS [facility]; Protocol Last Admin: 05/06/18 17:49 Dose: Not Given Isosorbide Mononitrate (Imdur Er) 60 mg PO DAILY [facility] Last Admin: 05/06/18 11:53 Dose: 60 mg Labetalol HCl (Trandate) 20 mg IV Q4 PRN PRN Reason: Other Last Admin: 05/01/18 15:18 Dose: 20 mg Labetalol HCl (Trandate) 300 mg PO Q8 [facility] Last Admin: 05/06/18 15:04 Dose: 300 mg Levalbuterol HCl (Xopenex) 1.25 mg IH [id number] PRN PRN Reason: Shortness of Breath Last Admin: 05/01/18 19:25 Dose: 1.25 mg Metoclopramide HCl (Reglan) 5 mg PO ACHS [facility] Last Admin: 05/06/18 17:53 Dose: 5 mg Nifedipine (Procardia Xl) 60 mg PO QPM [facility] Last Admin: 05/06/18 18:12 Dose: 60 mg Ondansetron HCl (Zofran Inj) 4 mg IVP Q4H PRN PRN Reason: Nausea/Vomiting Last Admin: 05/06/18 18:12 Dose: 4 mg Pantoprazole Sodium (Protonix Ec Tab) 20 mg PO ACB [facility] Last Admin: 05/06/18 11:48 Dose: 20 mg Silver Sulfadiazine (Silvadene 1% 25 Gm) 0 gm TP BID [facility] Last Admin: 05/06/18 17:53 Dose: 1 gm Simethicone (Mylicon Chew Tab) 80 mg PO PCHS PRN PRN Reason: GI distress Last Admin: 05/03/18 19:00 Dose: 80 mg Vitamin B Complex/Vit C/Folic Acid (Nephro-Holland) 1 tab PO 0800 [facility] Last Admin: 05/06/18 11:47 Dose: 1 tab - Labs Labs: 05/06/18 10:20 05/06/18 10:20 PT 13.5 SECONDS (9.4-12.5) H 04/28/18 07:00 INR 1.17 04/28/18 07:00 APTT 26.6 Seconds (25.1-36.5) 04/28/18 07:00 - Constitutional Appears: Chronically Ill - Head Exam Head Exam: NORMAL INSPECTION - Respiratory Exam Respiratory Exam: Decreased Breath Sounds - Cardiovascular Exam Cardiovascular Exam: +S1, +S2 - GI/Abdominal Exam GI & Abdominal Exam: Soft. absent: Tenderness Assessment and Plan - Assessment and Plan (Free Text) Plan: Assessment abdominal wall cellulitis with Pseudomonas and C. famata S/P small bowel obstruction in this patient with ventral wall hernia, S/P ventral incarcerated hernia repair, adhesiolysis and revision of colostomy S/P acute coronary syndrome with NSTEMI COPD history of VRE UTI history of severe sepsis secondary to left medial thigh abscess, growing Proteus, S/P incision and drainage DM HTN CAD Unresectable rectal cancer S/P chemotherapy and radiation therapy S/P colostomy S/P Port-a-cath placement morbid obesity with BMI 50 obstructive sleep apnea history of pulmonary embolism S/P IVC filter placement Plan continue Merrem and Mycamine and will continue to monitor clinically
[2018-05-06] MEDS: Insulin Detemir 100 units/ml Vial (Levemir) SC SCH (22:00)
[2018-05-07] MEDS: HYDROmorphone 0.5 mg/0.5 ml ISec IVP PRN ×5 (01:53→21:11)
[2018-05-07] MEDS ORDERED: Barium Sulfate Susp 2.1% w/v, 2.0% w/w 450 mL Bottle PO ONE (02:37)
--- NOTE | 2018-05-07 04:59 | PN ---
DATE: 05/06/2018 SUBJECTIVE: This patient was seen and evaluated earlier today. The patient is tolerating the diet. PHYSICAL EXAMINATION: VITAL SIGNS: Temperature 98.9, pulse 95, blood pressure is 123/58. HEENT: Atraumatic. Anicteric. NECK: Supple. HEART: S1 and S2 heard. LUNGS: Bilateral air entry present. ABDOMEN: Soft. Suture lines present. Colostomy present. Mild erythema present. Colostomy functioning. EXTREMITIES: Bilateral edema present. NEUROLOGIC: Alert, oriented. Moves all extremities. LABORATORY DATA: Hemoglobin 8.3, hematocrit 28.5, WBC 7.7, platelets 208. BUN 63, creatinine 1.7. IMPRESSION: This is a 62-year-old patient, morbidly obese with pulmonary hypertension, obstructive sleep apnea, admitted with abdominal pain, noted to have a small abdominal wall collection noticed, discharged. The patient has repair of the ventral hernia present. We would recommend at this point consider repeat CT with p.o. contrast. If the patient continues to complain of abdominal pain, continue with the antibiotics. The patient is off the antibiotics. The patient did complete the antibiotic course as per ID. The patient will be benefited on elective colonoscopy evaluation. Presently on Reglan short course recommended. Thank you very much for allowing us to participate in the care of the patient. Gita Benitez MD
--- NOTE | 2018-05-07 07:15 | CP.PCM.PN ---
Subjective - Date & Time of Evaluation Date of Evaluation: 05/07/18 Time of Evaluation: 06:35 - Subjective Subjective: lying in bed, open eyes to verbal commands,no distress Reason for consultation and follow up: Cardiac evaluation of coronary artery tita nunez, admitted for altered mental status Seen and examined by me and Dr. Guerrero Objective - Vital Signs/Intake and Output Vital Signs (last 24 hours): Temp Pulse Resp BP Pulse Ox 97.6 F 87 20 144/57 L 97 05/07/18 06:00 05/07/18 06:00 05/07/18 06:00 05/07/18 06:00 05/07/18 06:00 - Medications Medications: Current Medications Acetaminophen (Tylenol 325mg Tab) 650 mg PO Q4H PRN PRN Reason: Pain, Mild (1-3) Last Admin: 05/07/18 00:05 Dose: 650 mg Amlodipine Besylate (Norvasc) 10 mg PO DAILY [facility] Last Admin: 05/06/18 11:56 Dose: 10 mg Apixaban (Eliquis) 2.5 mg PO BID [facility]; Protocol Last Admin: 05/06/18 18:11 Dose: 2.5 mg Arformoterol Tartrate (Brovana) 15 mcg IH [id number] [facility] Last Admin: 05/06/18 07:31 Dose: 15 mcg Armodafinil (Nuvigil 250 Mg Tab) 250 mg PO DAILY [facility] Last Admin: 05/06/18 11:48 Dose: 250 mg Aspirin (Ecotrin) 81 mg PO DAILY [facility] Last Admin: 05/06/18 11:46 Dose: 81 mg Atorvastatin Calcium (Lipitor) 20 mg PO HS [facility] Last Admin: 05/07/18 00:09 Dose: 20 mg Clonidine HCl (Catapres-Tts3 0.3 Mg/24 Hr) 1 patch TD Q7D@1000 [facility] Last Admin: 05/02/18 11:39 Dose: 1 patch Darbepoetin Timothy (Aranesp) 25 mcg SC QWK [facility] Last Admin: 05/06/18 15:12 Dose: 25 mcg Darbepoetin Timothy (Aranesp) 100 mcg SC QWK [facility] Last Admin: 05/06/18 15:11 Dose: 100 mcg Docusate Sodium (Colace) 100 mg PO TID [facility] Last Admin: 05/06/18 18:11 Dose: 100 mg Ergocalciferol (Drisdol 50,000 Intl Units Cap) 1 cap PO Q7D [facility] Last Admin: 05/03/18 08:50 Dose: 1 cap Ferrous Gluconate (Fergon) 324 mg PO DAILY [facility] Last Admin: 05/06/18 11:47 Dose: 324 mg Furosemide (Lasix) 40 mg PO DAILY [facility] Last Admin: 05/06/18 11:53 Dose: 40 mg Hydralazine HCl (Apresoline) 100 mg PO Q8 [facility] Last Admin: 05/07/18 05:23 Dose: 100 mg Hydromorphone HCl (Dilaudid) 0.5 mg IVP Q4H PRN PRN Reason: Pain, moderate (4-7) Last Admin: 05/07/18 01:53 Dose: 0.5 mg Meropenem (Merrem Iv 1 Gm Premix) 1 gm in 50 mls @ 100 mls/hr IVPB Q12 [facility]; Protocol Stop: 05/14/18 15:40 Last Admin: 05/06/18 21:29 Dose: 100 mls/hr Micafungin Sodium 100 mg/ (Sodium Chloride) 100 mls @ 100 mls/hr IV 1700 [facility]; Protocol Last Admin: 05/06/18 17:52 Dose: 100 mls/hr Insulin Detemir (Levemir) 20 unit SC [facility] Last Admin: 05/06/18 22:00 Dose: 20 units Insulin Human Regular (Humulin R Low) 0 units SC [facility]; Protocol Last Admin: 05/06/18 22:51 Dose: Not Given Isosorbide Mononitrate (Imdur Er) 60 mg PO DAILY [facility] Last Admin: 05/06/18 11:53 Dose: 60 mg Labetalol HCl (Trandate) 20 mg IV Q4 PRN PRN Reason: Other Last Admin: 05/01/18 15:18 Dose: 20 mg Labetalol HCl (Trandate) 300 mg PO Q8 [facility] Last Admin: 05/07/18 05:24 Dose: 300 mg Levalbuterol HCl (Xopenex) 1.25 mg IH [id number] PRN PRN Reason: Shortness of Breath Last Admin: 05/01/18 19:25 Dose: 1.25 mg Metoclopramide HCl (Reglan) 5 mg PO ACHS [facility] Last Admin: 05/06/18 21:29 Dose: 5 mg Nifedipine (Procardia Xl) 60 mg PO QPM [facility] Last Admin: 05/06/18 18:12 Dose: 60 mg Ondansetron HCl (Zofran Inj) 4 mg IVP Q4H PRN PRN Reason: Nausea/Vomiting Last Admin: 05/06/18 18:12 Dose: 4 mg Pantoprazole Sodium (Protonix Ec Tab) 20 mg PO ACB [facility] Last Admin: 05/06/18 11:48 Dose: 20 mg Silver Sulfadiazine (Silvadene 1% 25 Gm) 0 gm TP BID [facility] Last Admin: 05/06/18 17:53 Dose: 1 gm Simethicone (Mylicon Chew Tab) 80 mg PO PCHS PRN PRN Reason: GI distress Last Admin: 05/03/18 19:00 Dose: 80 mg Vitamin B Complex/Vit C/Folic Acid (Nephro-Holland) 1 tab PO 0800 [facility] Last Admin: 05/06/18 11:47 Dose: 1 tab - Labs Labs: 05/06/18 10:20 05/06/18 10:20 PT 13.5 SECONDS (9.4-12.5) H 04/28/18 07:00 INR 1.17 04/28/18 07:00 APTT 26.6 Seconds (25.1-36.5) 04/28/18 07:00 - Constitutional Appears: Non-toxic, No Acute Distress - Head Exam Head Exam: NORMAL INSPECTION, NORMOCEPHALIC - Eye Exam Eye Exam: Normal appearance Pupil Exam: NORMAL ACCOMODATION - ENT Exam ENT Exam: Mucous Membranes Dry - Respiratory Exam Respiratory Exam: Decreased Breath Sounds, NORMAL BREATHING PATTERN - Cardiovascular Exam Cardiovascular Exam: +S1, +S2 Additional comments: right chest wall port - GI/Abdominal Exam GI & Abdominal Exam: Soft, Normal Bowel Sounds Additional comments: colostomy abdominal dressing intact - Extremities Exam Additional comments: 2-3+edema - Neurological Exam Neurological Exam: Alert, Awake - Psychiatric Exam Psychiatric exam: Normal Affect, Normal Mood - Skin Skin Exam: Dry, Normal Color, Warm Assessment and Plan - Assessment and Plan (Free Text) Assessment: A 62 year old morbidly obese female who was brought to the ER due to altered mental status. Recently was discharged from [facility] due to small bowel obstruction with resection by Dr. Mckeon. Patient is known to have rectal cancer in the past. with colostomy. History of coronary artery disease with stent of circumflex,hypertension, hyperlipidemia,diabetes, Sleep Apnea, COPD, CHF,history of DVT and PE. CT of head unremarkable, EKG showed NSR, Chest X ray showed moderate CHF however bilateral infiltrate. Recent ECHO LVEF normal.Cardiac status stable.Uncontrolled blood pressure.GI follow up for off and on abdominal pain. Abdominal wound final report positive for megan famata and pseudomonas, ID on consult. On IV antibiotics Plan: No distress,Awake Denies chest pain or shortness of breath Heart rate controlled Controlled blood pressure On Norvasc 10 mg daily,ASA 81 mg daily,Lovenox 30 mg daily,Lasix 40 mg daily Hydralazine 100 mg TID, Imdur Er 60 mg daily,Labetolol 200 mg TID,Procardia 60 mg daily Clonindine patch. GI and general surgery work up Nutritional support Abdominal wound final report positive for megan famata and pseudomonas, Continue antibiotics as per ID Continue current treatment Continue current medications Chart reviewed Will follow up Plan and treatment discussed with Dr. Guerrero
[2018-05-07] MEDS: Arformoterol 15 mcg/2 ml Inh Sol IH SCH ×2 (07:26→20:13)
[2018-05-07] MEDS: Insulin Reg-LOW-Coverage SC SCH ×4 (07:56→22:43)
--- NOTE | 2018-05-07 07:56 | CP.PCM.PN ---
Subjective - Date & Time of Evaluation Date of Evaluation: 05/07/18 Time of Evaluation: 07:53 - Subjective Subjective: Surgery Progress Note - Dr. Mckeon Patient seen and examined at bedside this morning. Patient with CT PO contrast at bedside. She has not yet drank the whole thing as she does not have the urge to eat or drink. Still refusing surgery as she does not want to go through it again. RN states she will page the surgery team when son arrives so that we could have a group discussion. Patient still feeling the same abdominal pain mentioned yesterday. No acute changes. 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: Asael Gonzalez, OMS-III Objective - Vital Signs/Intake and Output Vital Signs (last 24 hours): Temp Pulse Resp BP Pulse Ox 97.6 F 87 20 144/57 L 97 05/07/18 06:00 05/07/18 06:00 05/07/18 06:00 05/07/18 06:00 05/07/18 06:00 - Medications Medications: Current Medications Acetaminophen (Tylenol 325mg Tab) 650 mg PO Q4H PRN PRN Reason: Pain, Mild (1-3) Last Admin: 05/07/18 00:05 Dose: 650 mg Amlodipine Besylate (Norvasc) 10 mg PO DAILY [facility] Last Admin: 05/06/18 11:56 Dose: 10 mg Apixaban (Eliquis) 2.5 mg PO BID [facility]; Protocol Last Admin: 05/06/18 18:11 Dose: 2.5 mg Arformoterol Tartrate (Brovana) 15 mcg IH [id number] [facility] Last Admin: 05/07/18 07:26 Dose: 15 mcg Armodafinil (Nuvigil 250 Mg Tab) 250 mg PO DAILY [facility] Last Admin: 05/06/18 11:48 Dose: 250 mg Aspirin (Ecotrin) 81 mg PO DAILY [facility] Last Admin: 05/06/18 11:46 Dose: 81 mg Atorvastatin Calcium (Lipitor) 20 mg PO HS [facility] Last Admin: 05/07/18 00:09 Dose: 20 mg Clonidine HCl (Catapres-Tts3 0.3 Mg/24 Hr) 1 patch TD Q7D@1000 [facility] Last Admin: 05/02/18 11:39 Dose: 1 patch Darbepoetin Timothy (Aranesp) 25 mcg SC QWK [facility] Last Admin: 05/06/18 15:12 Dose: 25 mcg Darbepoetin Timothy (Aranesp) 100 mcg SC QWK [facility] Last Admin: 05/06/18 15:11 Dose: 100 mcg Docusate Sodium (Colace) 100 mg PO TID [facility] Last Admin: 05/06/18 18:11 Dose: 100 mg Ergocalciferol (Drisdol 50,000 Intl Units Cap) 1 cap PO Q7D [facility] Last Admin: 05/03/18 08:50 Dose: 1 cap Ferrous Gluconate (Fergon) 324 mg PO DAILY [facility] Last Admin: 05/06/18 11:47 Dose: 324 mg Furosemide (Lasix) 40 mg PO DAILY [facility] Last Admin: 05/06/18 11:53 Dose: 40 mg Hydralazine HCl (Apresoline) 100 mg PO Q8 [facility] Last Admin: 05/07/18 05:23 Dose: 100 mg Hydromorphone HCl (Dilaudid) 0.5 mg IVP Q4H PRN PRN Reason: Pain, moderate (4-7) Last Admin: 05/07/18 07:15 Dose: 0.5 mg Meropenem (Merrem Iv 1 Gm Premix) 1 gm in 50 mls @ 100 mls/hr IVPB Q12 [facility]; Protocol Stop: 05/14/18 15:40 Last Admin: 05/06/18 21:29 Dose: 100 mls/hr Micafungin Sodium 100 mg/ (Sodium Chloride) 100 mls @ 100 mls/hr IV 1700 [facility]; Protocol Last Admin: 05/06/18 17:52 Dose: 100 mls/hr Insulin Detemir (Levemir) 20 unit SC [facility] Last Admin: 05/06/18 22:00 Dose: 20 units Insulin Human Regular (Humulin R Low) 0 units SC ACHS [facility]; Protocol Last Admin: 05/06/18 22:51 Dose: Not Given Isosorbide Mononitrate (Imdur Er) 60 mg PO DAILY [facility] Last Admin: 05/06/18 11:53 Dose: 60 mg Labetalol HCl (Trandate) 20 mg IV Q4 PRN PRN Reason: Other Last Admin: 05/01/18 15:18 Dose: 20 mg Labetalol HCl (Trandate) 300 mg PO Q8 [facility] Last Admin: 05/07/18 05:24 Dose: 300 mg Levalbuterol HCl (Xopenex) 1.25 mg IH [id number] PRN PRN Reason: Shortness of Breath Last Admin: 05/01/18 19:25 Dose: 1.25 mg Metoclopramide HCl (Reglan) 5 mg PO ACHS [facility] Last Admin: 05/06/18 21:29 Dose: 5 mg Nifedipine (Procardia Xl) 60 mg PO QPM [facility] Last Admin: 05/06/18 18:12 Dose: 60 mg Ondansetron HCl (Zofran Inj) 4 mg IVP Q4H PRN PRN Reason: Nausea/Vomiting Last Admin: 05/06/18 18:12 Dose: 4 mg Pantoprazole Sodium (Protonix Ec Tab) 20 mg PO ACB [facility] Last Admin: 05/06/18 11:48 Dose: 20 mg Silver Sulfadiazine (Silvadene 1% 25 Gm) 0 gm TP BID [facility] Last Admin: 05/06/18 17:53 Dose: 1 gm Simethicone (Mylicon Chew Tab) 80 mg PO PCHS PRN PRN Reason: GI distress Last Admin: 05/03/18 19:00 Dose: 80 mg Vitamin B Complex/Vit C/Folic Acid (Nephro-Holland) 1 tab PO 0800 [facility] Last Admin: 05/06/18 11:47 Dose: 1 tab - Labs Labs: 05/06/18 10:20 05/06/18 10:20 PT 13.5 SECONDS (9.4-12.5) H 04/28/18 07:00 INR 1.17 04/28/18 07:00 APTT 26.6 Seconds (25.1-36.5) 04/28/18 07:00 - Constitutional Appears: Other (Morbidly obese female resting in bed) - Head Exam Head Exam: ATRAUMATIC, NORMAL INSPECTION, NORMOCEPHALIC - Eye Exam Eye Exam: EOMI, Normal appearance - Neck Exam Neck Exam: Normal Inspection - Respiratory Exam Respiratory Exam: Clear to Ausculation Bilateral, NORMAL BREATHING PATTERN - Cardiovascular Exam Cardiovascular Exam: Murmur (soft holosystolic throughout all listening posts). absent: Clicks, Gallop, Rubs - GI/Abdominal Exam GI & Abdominal Exam: Soft, Tenderness, Normal Bowel Sounds. absent: Pulsatile Mass, Rebound Additional comments: Abdominal dressings changed, examined after rounds. Both dressings and the colostomy c/d/i. - Extremities Exam Extremities Exam: Normal Capillary Refill Additional comments: UE and LE edema - Neurological Exam Neurological Exam: Alert, Awake, Oriented x3 - Skin Skin Exam: Dry, Intact, Normal Color, Warm Assessment and Plan - Assessment and Plan (Free Text) Assessment: 62 y/o female s/p ely-stomal hernia repair 2/2 SBO w/ revision of colostomy and creation of 2nd superior mucous fistula on 04/08/18 -OR scheduled , May 6 (in 2 days). Patient still refusing surgery despite explanation of possible progression of abdominal infection to mesh and therefore possibility of sepsis and . Patient voiced understanding of risks. Will continue to explain at length to son when he arrives. --preop orders done -repeat CT scan w/ PO/IV contrast ordered - pending; patient has not yet drank contrast -wound culture pending -continue with wound care -continue with ostomy care -pain control and antiemetics OLEGARIO Arias PGY1
--- NOTE | 2018-05-07 10:21 | PN ---
DATE: 05/06/2018 SUBJECTIVE: The patient is lying in bed. The patient has dressing on the right side of her abdomen; colostomy bag has the soft stools in it. The patient is afebrile. She is more more awake and oriented x3. She still complains of abdominal pain. PHYSICAL EXAMINATION VITAL SIGNS: On 05/06/2018 is as follow; temperature 98.9, heart rate 90, blood pressure 159/57, respirations 20, saturation 97% on room air. HEAD AND NECK: Normal. No JVD. No thyromegaly. CHEST: Clear bilaterally. CARDIAC: First sound and second sound are normal. There is systolic murmur on pulmonary area. ABDOMEN: Obese with colostomy bag on the right side, midline sutures, some redness and discharge on the incision. EXTREMITIES: Lower extremities, there is ankle edema. NEUROLOGIC: The patient moves upper and lower extremity that she is in a week much better. Mental status is improved. LABORATORY STUDY: White count 7.7, hemoglobin is 8.3, hematocrit 28.5, and platelets 208. Chemistry; sodium 141, potassium 4.2, chloride 110, bicarb 28, BUN 63, creatinine 1.7, blood sugar 120. Liver function test is normal. Total protein is low 5.2, albumin is low 2.4. Microbiology, the patient has gram stain and wound culture which shows gram-negative pseudomonas aeruginosa. CT abdomen was done, shows some fluid collections next to the wound and sitting in top of the mesh as per Dr. Mckeon. IMPRESSION AND PLAN: 1. Abdominal wall surgery site infections, gram-negative pseudomonas plus fungal Celsa. We will continue meropenem IV and micafungin, sodium 100 mg IV daily. The patient is getting meropenem for pseudomonas and gram-negative and is getting that every 12 hours plus local wound care. Discussed with Dr. Mckeon. She may need to go to the OR again, take the mesh out and is at high risk of procedures and we are going to treat the infections. We will discuss with the son. 2. Acute renal failure, on top of chronic is improving. Creatinine is down. Continue current therapy with the basketball player. 3. Hypertension is better controlled. Continue Trandate or labetalol 300 mg three times a day and p.r.n. 20 mg every 4 hours, seems doing well with that in addition to Norvasc. 4. Insulin-dependant diabetes. Continue insulin plus edema in lower extremity secondary to right-sided heart failure and pulmonary hypertension, iron deficiency anemia, rectal cancer with no evidence of any masses or metastasis. We will continue current therapy. The patient has history of pulmonary embolism in the past. Continue current medications, Eliquis 2.5 mg twice daily, continue Lasix 40 mg p.o. daily, continue vitamin D, Nuvigil machine and the patient seems doing well with the current medications, continue Aranesp. CURRENT MEDICATIONS: Hydralazine 100 mg every 8 hours and Aranesp 25 mcg every week plus 100 subq every 8, 125 mg subq weekly, total Brovana twice daily, clonidine p.r.n., clonidine patch 0.3. She is also on vitamin D, aspirin, Eliquis, iron pills, insulin coverage, Imdur 60 once a day, Lasix 40 mg once a day, Lipitor 20 mg once a day, , vitamin D complex, Norvasc 10 mg, Procardia 16 mg, Nuvigil 250 p.o. daily. The patient has Reglan p.r.n. and Trandate 300 mg 3 times daily. Continue current therapy. The patient is planning to go for surgery again, it is a high risk surgery. Prognosis is poor with multiple medical problems. In addition to her sacral decubitus, continue local treatment, dressing change stage II between her legs, between her rectal area, buttock area and continue supportive care at this time and we will follow up, discuss this with another communication consultant. Elroy Florian MD
[2018-05-07 11:41] LABS: ALBUMIN (PEP) 1.8 g/dL (3.8-4.8); ALPHA-1-GLOBULIN (PEP) 0.5 g/dL (0.2-0.3)
--- NOTE | 2018-05-07 11:50 | PN ---
DATE: 05/07/2018 SUBJECTIVE: The patient is lying in bed. No acute distress. Reports some abdominal pain at surgical site. No headache, rhinitis, cough, shortness of breath, chest pain, nausea, vomiting, diarrhea, leg pain, leg swelling reported. OBJECTIVE: VITAL SIGNS: Blood pressure 144/57, pulse 87, temperature 97.6, oxygen saturation 97% on room air, and respirations 20. GENERAL: No acute distress. HEENT: Moist mucous membranes. Crowded airway. Mallampati score is 4. NECK: Supple. No JVD. LUNGS: Fair airflow bilaterally. CARDIOVASCULAR: S1 and S2 audible. ABDOMEN: Colostomy on right side of abdomen. Surgical site to left side of abdomen with dressing in place. Abdominal tenderness upon palpation. EXTREMITIES: +1 edema bilaterally. NEUROLOGIC: Awake, alert, verbal, and able to follow simple commands. LABORATORY DATA: Reviewed. POC glucose 107. Abdominal wound culture pending. MEDICATIONS: Reviewed. Tylenol 650 mg every 4 hours p.r.n., Norvasc 10 mg p.o. daily, Eliquis 2.5 mg p.o. twice a day, Brovana 15 mcg every 12 hours inhalation, Nuvigil 250 mg p.o. daily, Ecotrin 81 mg p.o. daily, Lipitor 20 mg at bedtime, clonidine 0.3 mg one patch every 24 hours, Aranesp 125 mcg weekly, Colace 100 mg three times a day, ferrous gluconate 324 mg p.o. daily,ergocalciferol 50,000 units 1 cap every seven days, Lasix 40 mg daily, hydralazine 100 mg every 8 hours, Dilaudid 0.5 mg IV push every 4 hours p.r.n., Levemir 20 units at bedtime, Humulin R sliding scale, isosorbide mononitrate 60 mg p.o. daily, labetalol 20 mg IV every 4 hours p.r.n., labetalol 300 mg p.o. every 8 hours, Xopenex 1.25 mg inhalation every 6 hours p.r.n., meropenem 1 gram IV every 12 hours, Reglan 5 mg at a.c. at bedtime, micafungin sodium 100 mg IV daily, Procardia XL 60 mg p.o. daily, Zofran 4 mg IV push every 4 hours p.r.n., Protonix 20 mg a.c., Silvadene applied to affected area twice a day, simethicone 80 mg p.r.n., and vitamin B complex 1 tablet daily. IMPRESSION AND PLAN: Status post small bowel obstruction, status post laparotomy, relocation of colostomy, status post hernia repair, hypoventilation syndrome, history of pulmonary embolism, deep vein thrombosis, hypertension, diabetes, and morbid obesity. The patient is currently being treated for sepsis. Pulmonary point of view, continue BiPAP at night. Discussed with nursing staff to ensure that patient has BiPAP on at bedtime. Keep head of bed elevated 45 degrees. Continue bronchodilators, gastric prophylaxis and anticoagulation therapy. Continue daytime stimulant. The patient would benefit from physical therapy. Pressure ulcer precautions. This patient was seen and examined with Dr. Ayala. Discussed assessment and plan as described as above. Thank you for this consult and we will follow with you. Patient examined anr chart reviewed. agree with assessment and plan Breezy Schafer APN ANT
[2018-05-07] MEDS: Armodafinil 250 mg Tab PO SCH (11:54)
[2018-05-07] MEDS: Multivitamin Vitamin B Complex (Nephro-Vite) Tab PO SCH (11:54)
[2018-05-07] MEDS: Pantoprazole 20 mg EC Tab PO SCH (11:55)
--- NOTE | 2018-05-07 12:07 | CT ---
Date of service: 05/07/2018 PROCEDURE: CT Abdomen and Pelvis without intravenous contrast HISTORY: r/o intra-abdominal abscess COMPARISON: None. TECHNIQUE: Technique. Contrast dose: Radiation dose: Total exam DLP = 1457.83 mGy-cm. This CT exam was performed using one or more of the following dose reduction techniques: Automated exposure control, adjustment of the mA and/or kV according to patient size, and/or use of iterative reconstruction technique. FINDINGS: LOWER THORAX: Unremarkable. LIVER: Unremarkable. No gross lesion or ductal dilatation. GALLBLADDER AND BILE DUCTS: Unremarkable. PANCREAS: Unremarkable. No gross lesion or ductal dilatation. SPLEEN: Unremarkable. ADRENALS: 18 mm low-density left adrenal mass consistent with adenoma. KIDNEYS AND URETERS: Unremarkable. No hydronephrosis. No solid mass. VASCULATURE: Unremarkable. No aortic aneurysm. Aortic calcification. Caval filter BOWEL: Right lower quadrant colostomy. Previous rectal surgery. There is focal outpouching in thinning of the abdominal wall to the left of midline. A 2nd ostomy site is seen on the left. Some chronic scarring or inflammatory changes are seen adjacent to this area. Surgical clips are also seen. No evidence of intra-abdominal abscess APPENDIX: Unremarkable. Normal appendix. PERITONEUM: Unremarkable. No free fluid. No free air. LYMPH NODES: Unremarkable. No enlarged lymph nodes. BLADDER: Unremarkable. REPRODUCTIVE: Unremarkable. BONES: No acute fracture. OTHER FINDINGS: None. IMPRESSION: No evidence of abscess
[2018-05-07] MEDS: Meropenem IV 1 gm in NS 1 GM/50 ML BAG IVPB SCH ×2 (12:12→21:23)
[2018-05-07] MEDS: Silver Sulfadiazine 1% Cream (25 gm) TP SCH (12:15)
--- NOTE | 2018-05-07 12:26 | PN ---
DATE: 05/07/2018 REASON FOR CONSULTATION: Cardiac evaluation, history of coronary artery disease, admitted with altered mental status. Patient is complaining of abdominal pain, yesterday called surgical major account representative to evaluate for possible debridement of surgical wound. The patient denies any chest pain, shortness of breath, or any palpitation. IMPRESSION: A 62-year-old female with past medical history significant for coronary artery disease status post percutaneous transluminal coronary angioplasty of the circumflex, hypertension, hyperlipidemia, morbid obesity, obstructive sleep apnea, chronic obstructive pulmonary disease, heart failure, deep vein thrombosis, pulmonary embolism, history of small bowel obstruction status post exploratory laparotomy complaining of pain, abdominal wound growing megan needs probably debridement of the wound. CVS status is stable. Continue Norvasc 10 mg daily, hydralazine 100 p.o. 3 times daily, Imdur, labetalol, Lovenox. Once surgery has done, we will start anticoagulation. Patient was on Eliquis at home, I met before she came in, on hold because patient may need surgery. The patient needs reexploration of abdominal wound. The patient is cleared from Cardiology point of view, is moderate to high risk but is cleared. No absolute contraindication. Monitor electrolytes. Monitor H and H, if it goes below 8, consider packed RBC transfusion. This note is in addition to the note dictated by the nurse practitioner, Tiffanie Osborne. Pamela Guerrero MD
--- NOTE | 2018-05-07 12:40 | CP.PCM.PN ---
Subjective - Date & Time of Evaluation Date of Evaluation: 05/07/18 Time of Evaluation: 12:39 - Subjective Subjective: Nephrology Consultation Note: Assessment: altered mental status: fluctuating SBO s/p ex lap Acute Kidney Injury (N17.9) likely pre-renal state left adrenal adenoma, Rt renal hyperdense cyst chronic hypercapnic respi failure Diabetic chronic Kidney Disease (E11.22) Hypertensive Chronic Kidney Disease (I12.9) Chronic Kidney Disease (N18.3) Stage 3 with 2.4 gm proteinuria (R80.9) likely due to DM/HTN/Obesity Anemia Vit D def morbid obesity, CAD s/p stent, COPD/SUMMER, rectal ca s/p colostomy Plan No acute need for renal replacement therapy at this time. HTN control on multiple meds; norvasc hydralazine labetalol nifedipine and imdur. hold ARB due to SHELBI. had d/c clonidine due her mental status and possible side effect of drowsiness. labetalol increased to 300 mg tid Monitor Input/Output, daily weights and renal function with basic metabolic panel pulmonary ID heme and surgery following PRBC as needed. 2 units [id number]/16/18. d/w heme and okay to use KAVYA from heme perspective. on weekly aransep 125 mcg (04/29/18) supplement lytes as needed lasix 40 mg oral daily. stopped IVF due to pulm congestion on CXR and respi concerns. Adrenal adenoma work up with plasma renin/aldosterone, plasma metanephrine NEGATIVE. outpt 1 mg dexa suppression test repeat renal sono in 6 months to assess her Rt renal cyst Dose meds/antibiotics for reduced GFR. Avoid fleets enema/magnesium based laxatives. Avoid nephrotoxins/NSAIDs/ iodinated contrast (unless needed emergently) Glycemic control Further work up/management as per primary team Thanks for allowing me to participate in care of your patient. Will follow patient with you. Please call if any Qs. had d/w team Dr Dae Dawn Office: [phone] Chief Complaint;AMS Reason for consult: Acute Kidney Injury, CKD 3 HPI: Pt is a 62 F with hx of diabetes Mellitus (15 years), hypertension (years), CKD 3 with baseline cr 1.2-1.3 with AKIs, morbid obesity, CAD s/p stent, COPD/SUMMER on CPAP, rectal ca s/p colostomy recently admitted for SBP s/p ex-lap, seen for SHELBI and HTN urgency came back with complaints of AMS and fever. renal consult for CKD and SHELBI management. pt has no urine complaints. Denies OTC/herbal meds or NSAIDs No recent iodinated contrast exposure. No obvious episodes of low BP. ROS: c/o abdomen pain same. denies SOB Physical Examination: General Appearance: comfortable,morbidly obese. better appearing, Vitals reviewed and noted as below Head; Atraumatic, normocephalic ENT: dry mucosa EYES: Pupils are equal, round and reactive to light accommodation. Eye muscles and extraocular movement intact. Sclera is anicteric. Neck; supple no lymphadenopathy, no thyromegaly or bruit Lungs: Normal respiratory rate/effort. Breath sounds bilateral equal, diminished at bases but overall limited exam due to her obesity Heart: normal rate. s1s2 normal. No rub or gallop. Extremities: 2+ edema. No varicose veins Neurological: Patient is much more awake follwo commands Skin: Warm and dry. Normal turgor. No rash. Palpitation: Normal elasticity for age Abdomen: Abdomen is s/p ex lap soft. tender Psych: deferred MSK: no joint tenderness or swelling. Digits and nails normal, no deformity : kidney or bladder not palpable Labs/imaging reviewed. Past medical history, past surgical history, family history, social history, allergy reviewed and noted as below Family hx: no hx of CKD. Rest non-contributory PET CT 04/2017: neg CT abdomen: left adrenal adenoma 1.9 cm Rt kidney 2.6 cm hyperdense cyst UA 100 protein, neg for blood renin and roma low, metanehrine WNL PTH 133 Vit D 27 ANCA neg, K/L ratio WNL Objective - Vital Signs/Intake and Output Vital Signs (last 24 hours): Temp Pulse Resp BP Pulse Ox 97.6 F 87 20 144/57 L 97 05/07/18 09:06 05/07/18 09:06 05/07/18 09:06 05/07/18 11:55 05/07/18 09:06 - Medications Medications: Current Medications Acetaminophen (Tylenol 325mg Tab) 650 mg PO Q4H PRN PRN Reason: Pain, Mild (1-3) Last Admin: 05/07/18 00:05 Dose: 650 mg Amlodipine Besylate (Norvasc) 10 mg PO DAILY [facility] Last Admin: 05/07/18 11:54 Dose: 10 mg Apixaban (Eliquis) 2.5 mg PO BID [facility]; Protocol Last Admin: 05/07/18 11:54 Dose: 2.5 mg Arformoterol Tartrate (Brovana) 15 mcg IH [id number] [facility] Last Admin: 05/07/18 07:26 Dose: 15 mcg Armodafinil (Nuvigil 250 Mg Tab) 250 mg PO DAILY [facility] Last Admin: 05/07/18 11:54 Dose: 250 mg Aspirin (Ecotrin) 81 mg PO DAILY [facility] Last Admin: 05/07/18 11:54 Dose: 81 mg Atorvastatin Calcium (Lipitor) 20 mg PO HS [facility] Last Admin: 05/07/18 00:09 Dose: 20 mg Clonidine HCl (Catapres-Tts3 0.3 Mg/24 Hr) 1 patch TD Q7D@1000 [facility] Last Admin: 05/02/18 11:39 Dose: 1 patch Darbepoetin Timothy (Aranesp) 25 mcg SC QWK [facility] Last Admin: 05/06/18 15:12 Dose: 25 mcg Darbepoetin Timothy (Aranesp) 100 mcg SC QWK [facility] Last Admin: 05/06/18 15:11 Dose: 100 mcg Docusate Sodium (Colace) 100 mg PO TID [facility] Last Admin: 05/07/18 11:55 Dose: 100 mg Ergocalciferol (Drisdol 50,000 Intl Units Cap) 1 cap PO Q7D [facility] Last Admin: 05/03/18 08:50 Dose: 1 cap Ferrous Gluconate (Fergon) 324 mg PO DAILY [facility] Last Admin: 05/07/18 11:54 Dose: 324 mg Furosemide (Lasix) 40 mg PO DAILY [facility] Last Admin: 05/07/18 11:55 Dose: 40 mg Hydralazine HCl (Apresoline) 100 mg PO Q8 [facility] Last Admin: 05/07/18 05:23 Dose: 100 mg Hydromorphone HCl (Dilaudid) 0.5 mg IVP Q4H PRN PRN Reason: Pain, moderate (4-7) Last Admin: 05/07/18 12:05 Dose: 0.5 mg Meropenem (Merrem Iv 1 Gm Premix) 1 gm in 50 mls @ 100 mls/hr IVPB Q12 [facility]; Protocol Stop: 05/14/18 15:40 Last Admin: 05/07/18 12:12 Dose: 100 mls/hr Micafungin Sodium 100 mg/ (Sodium Chloride) 100 mls @ 100 mls/hr IV 1700 [facility]; Protocol Last Admin: 05/06/18 17:52 Dose: 100 mls/hr Insulin Detemir (Levemir) 20 unit SC [facility] Last Admin: 05/06/18 22:00 Dose: 20 units Insulin Human Regular (Humulin R Low) 0 units SC ACHS [facility]; Protocol Last Admin: 05/07/18 11:58 Dose: Not Given Isosorbide Mononitrate (Imdur Er) 60 mg PO DAILY [facility] Last Admin: 05/07/18 11:54 Dose: 60 mg Labetalol HCl (Trandate) 20 mg IV Q4 PRN PRN Reason: Other Last Admin: 05/01/18 15:18 Dose: 20 mg Labetalol HCl (Trandate) 300 mg PO Q8 [facility] Last Admin: 05/07/18 05:24 Dose: 300 mg Levalbuterol HCl (Xopenex) 1.25 mg IH [id number] PRN PRN Reason: Shortness of Breath Last Admin: 05/01/18 19:25 Dose: 1.25 mg Metoclopramide HCl (Reglan) 5 mg PO [facility] Last Admin: 05/06/18 21:29 Dose: 5 mg Nifedipine (Procardia Xl) 60 mg PO QPM [facility] Last Admin: 05/06/18 18:12 Dose: 60 mg Ondansetron HCl (Zofran Inj) 4 mg IVP Q4H PRN PRN Reason: Nausea/Vomiting Last Admin: 05/06/18 18:12 Dose: 4 mg Pantoprazole Sodium (Protonix Ec Tab) 20 mg PO ACB [facility] Last Admin: 05/07/18 11:55 Dose: 20 mg Silver Sulfadiazine (Silvadene 1% 25 Gm) 0 gm TP BID [facility] Last Admin: 05/07/18 12:15 Dose: Not Given Simethicone (Mylicon Chew Tab) 80 mg PO PCHS PRN PRN Reason: GI distress Last Admin: 05/03/18 19:00 Dose: 80 mg Vitamin B Complex/Vit C/Folic Acid (Nephro-Holland) 1 tab PO 0800 [facility] Last Admin: 05/07/18 11:54 Dose: 1 tab - Labs Labs: 05/06/18 10:20 05/06/18 10:20 PT 13.5 SECONDS (9.4-12.5) H 04/28/18 07:00 INR 1.17 04/28/18 07:00 APTT 26.6 Seconds (25.1-36.5) 04/28/18 07:00
[2018-05-07 13:34] LABS: HEMOGLOBIN 8.8 g/dL (12.0-16.0); MEAN CELL VOLUME 93.8 fl (80.0-105.0); MEAN CORPUSCULAR HEMOGLOBIN 27.3 pg (25.0-35.0); MEAN CORPUSCULAR HGB CONC 29.1 g/dl (31.0-37.0); MEAN PLATELET VOLUME 9.8 fl (7.0-11.0); RBC 3.22 10^6/uL (3.5-6.1); RED CELL DISTRIBUTION WIDTH 18.1 % (11.5-14.5); WHITE BLOOD COUNT 9.4 10^3/uL (4.5-11.0)
[2018-05-07 13:53] LABS: ALB/GLOB RATIO 0.7 (1.1-1.8); ALBUMIN 2.4 g/dL (3.0-4.8); CALCIUM 8.6 mg/dL (8.4-10.5)
--- NOTE | 2018-05-07 15:38 | PN ---
DATE: 05/07/2018 SUBJECTIVE: The patient is seen earlier today. She appears to be much more comfortable. No fevers, no chills and less abdominal pain. PHYSICAL EXAMINATION: VITAL SIGNS: On exam, temperature is 97, blood pressure is 140/50, respiratory rate of 16. HEENT: Examination of HEENT is unremarkable. NECK: Supple. LUNGS: Have decreased breath sounds. HEART: Normal S1, S2. ABDOMEN: Examination is soft, nontender. LABORATORY DATA: Laboratory examination reveals a white count of 7.7 and BUN of 63, creatinine of 1.7. Urinalysis is noted and microbiology reveals there is yeast in the abdominal culture and there is also Celsa in another culture with Pseudomonas. Review of orders reveals the patient to be on micafungin and meropenem. The patient also had a CAT scan of the abdomen and pelvis since note. ASSESSMENT AND PLAN: Is a 62-year-old female, with morbid obesity and super morbid obesity with abdominal wall cellulitis and abscess, status post drainage with Pseudomonas and Celsa status post small bowel obstruction and a ventral wall hernia and incarcerated hernia and an infected mesh. The patient was offered removal of that mesh by Dr. Mckeon. The patient is refusing removal of mesh at this point and we will continue the meropenem and Mycamine in this patient with super morbid obesity, BMI of over 50 and coronary artery disease, hypertension, diabetes and history of pulmonary emboli and superior vena cava filter. Overall prognosis is quite poor for this patient with super morbid obesity with BMI of 51. Lawrence Cheek MD
--- NOTE | 2018-05-07 16:28 | PN ---
DATE: 05/07/2018 Pedro Guevara is seen. I think she needs a reoperation to remove that infected mesh. I believe it is infected, although I am not certain. The wound is together so far. The CAT scan shows a collection of fluid beneath it. There is no obstruction or no leakage that I can see at this time. My plan is to do a reoperation on . At this time, the patient is clearly and absolutely refusing any kind of surgery. I told her that this is dangerous and might result in including . I believe she understands this. For now, we will hold off surgery. Reoperation is going to be very difficulty because of the remaining hernia on the left side and because of the ostomy. The hernia defect is large, 10 cm. I do not think I can do component separation in a meaningful way. The best I can do is remove the infected mesh and put in biological or absorbable mesh. The operation itself should be very difficult. It also has an extraordinarily high operative mortality. Right now, she is functioning well and we will treat her with antibiotics. Osmar Mckeon MD
--- NOTE | 2018-05-07 18:01 | CP.PCM.PN ---
Subjective - Date & Time of Evaluation Date of Evaluation: 05/07/18 Time of Evaluation: 07:00 - Subjective Subjective: Sergio Mari DO, PGY-2: Hematology and Oncology Progress Note Patient was seen and examined at bedside. Patient denied any clinically s ignificant complaints. Patient has no bleeding or brusing. No adverse events noted overnight. Objective - Vital Signs/Intake and Output Vital Signs (last 24 hours): Temp Pulse Resp BP Pulse Ox 97.6 F 87 20 144/57 L 97 05/07/18 09:06 05/07/18 09:06 05/07/18 09:06 05/07/18 11:55 05/07/18 09:06 - Medications Medications: Current Medications Acetaminophen (Tylenol 325mg Tab) 650 mg PO Q4H PRN PRN Reason: Pain, Mild (1-3) Last Admin: 05/07/18 00:05 Dose: 650 mg Amlodipine Besylate (Norvasc) 10 mg PO DAILY [facility] Last Admin: 05/07/18 11:54 Dose: 10 mg Apixaban (Eliquis) 2.5 mg PO BID [facility]; Protocol Last Admin: 05/07/18 11:54 Dose: 2.5 mg Arformoterol Tartrate (Brovana) 15 mcg IH [id number] [facility] Last Admin: 05/07/18 07:26 Dose: 15 mcg Armodafinil (Nuvigil 250 Mg Tab) 250 mg PO DAILY [facility] Last Admin: 05/07/18 11:54 Dose: 250 mg Aspirin (Ecotrin) 81 mg PO DAILY [facility] Last Admin: 05/07/18 11:54 Dose: 81 mg Atorvastatin Calcium (Lipitor) 20 mg PO HS [facility] Last Admin: 05/07/18 00:09 Dose: 20 mg Clonidine HCl (Catapres-Tts3 0.3 Mg/24 Hr) 1 patch TD Q7D@1000 [facility] Last Admin: 05/02/18 11:39 Dose: 1 patch Darbepoetin Timothy (Aranesp) 25 mcg SC QWK [facility] Last Admin: 05/06/18 15:12 Dose: 25 mcg Darbepoetin Timothy (Aranesp) 100 mcg SC QWK [facility] Last Admin: 05/06/18 15:11 Dose: 100 mcg Docusate Sodium (Colace) 100 mg PO TID [facility] Last Admin: 05/07/18 11:55 Dose: 100 mg Ergocalciferol (Drisdol 50,000 Intl Units Cap) 1 cap PO Q7D [facility] Last Admin: 05/03/18 08:50 Dose: 1 cap Ferrous Gluconate (Fergon) 324 mg PO DAILY [facility] Last Admin: 05/07/18 11:54 Dose: 324 mg Furosemide (Lasix) 40 mg PO DAILY [facility] Last Admin: 05/07/18 11:55 Dose: 40 mg Hydralazine HCl (Apresoline) 100 mg PO Q8 [facility] Last Admin: 05/07/18 05:23 Dose: 100 mg Hydromorphone HCl (Dilaudid) 0.5 mg IVP Q4H PRN PRN Reason: Pain, moderate (4-7) Last Admin: 05/07/18 12:05 Dose: 0.5 mg Meropenem (Merrem Iv 1 Gm Premix) 1 gm in 50 mls @ 100 mls/hr IVPB Q12 [facility]; Protocol Stop: 05/14/18 15:40 Last Admin: 05/07/18 12:12 Dose: 100 mls/hr Micafungin Sodium 100 mg/ (Sodium Chloride) 100 mls @ 100 mls/hr IV 1700 [facility]; Protocol Last Admin: 05/06/18 17:52 Dose: 100 mls/hr Insulin Detemir (Levemir) 20 unit SC [facility] Last Admin: 05/06/18 22:00 Dose: 20 units Insulin Human Regular (Humulin R Low) 0 units SC ACHS [facility]; Protocol Last Admin: 05/07/18 11:58 Dose: Not Given Isosorbide Mononitrate (Imdur Er) 60 mg PO DAILY [facility] Last Admin: 05/07/18 11:54 Dose: 60 mg Labetalol HCl (Trandate) 20 mg IV Q4 PRN PRN Reason: Other Last Admin: 05/01/18 15:18 Dose: 20 mg Labetalol HCl (Trandate) 300 mg PO Q8 [facility] Last Admin: 05/07/18 05:24 Dose: 300 mg Levalbuterol HCl (Xopenex) 1.25 mg IH [id number] PRN PRN Reason: Shortness of Breath Last Admin: 05/01/18 19:25 Dose: 1.25 mg Metoclopramide HCl (Reglan) 5 mg PO ACHS [facility] Last Admin: 05/07/18 12:48 Dose: 5 mg Nifedipine (Procardia Xl) 60 mg PO QPM [facility] Last Admin: 05/06/18 18:12 Dose: 60 mg Ondansetron HCl (Zofran Inj) 4 mg IVP Q4H PRN PRN Reason: Nausea/Vomiting Last Admin: 05/06/18 18:12 Dose: 4 mg Pantoprazole Sodium (Protonix Ec Tab) 20 mg PO ACB [facility] Last Admin: 05/07/18 11:55 Dose: 20 mg Silver Sulfadiazine (Silvadene 1% 25 Gm) 0 gm TP BID [facility] Last Admin: 05/07/18 12:15 Dose: Not Given Simethicone (Mylicon Chew Tab) 80 mg PO PCHS PRN PRN Reason: GI distress Last Admin: 05/03/18 19:00 Dose: 80 mg Vitamin B Complex/Vit C/Folic Acid (Nephro-Holland) 1 tab PO 0800 [facility] Last Admin: 05/07/18 11:54 Dose: 1 tab - Labs Labs: 05/07/18 13:20 05/07/18 13:20 PT 13.5 SECONDS (9.4-12.5) H 04/28/18 07:00 INR 1.17 04/28/18 07:00 APTT 26.6 Seconds (25.1-36.5) 04/28/18 07:00 - Constitutional Appears: Non-toxic - Head Exam Head Exam: ATRAUMATIC, NORMOCEPHALIC - Eye Exam Eye Exam: EOMI, Normal appearance - ENT Exam ENT Exam: Mucous Membranes Moist - Neck Exam Neck Exam: Normal Inspection - Respiratory Exam Respiratory Exam: Decreased Breath Sounds (in bilateral lung bases) - Cardiovascular Exam Cardiovascular Exam: RRR, +S1, +S2 - GI/Abdominal Exam GI & Abdominal Exam: Soft, Normal Bowel Sounds. absent: Rebound - Extremities Exam Extremities Exam: Pedal Edema - Neurological Exam Neurological Exam: Alert, Awake, Oriented x3 - Psychiatric Exam Psychiatric exam: Normal Affect, Normal Mood - Skin Skin Exam: Dry, Intact, Normal Color, Warm Assessment and Plan - Assessment and Plan (Free Text) Assessment: ssessment and Plan: Patient is a 62 year old female with a past medical history significant for rectal adenocarcinoma s/p [employer]USS [employer]DER and loop colostomy, CAD s/p GLORIA, CHF, DM2, HTN, CKD, and DVT/PE on Eliquis who was admitted for evaluation and treatment of altered mental status. Heme/onc is consulted for management of elevated ptt. Elevated PTT - resolved - likely false reading x 1 Rectal Adenocarcinoma - pain control- Dilaudid over morphine as half life is shorter and is hepatically metabolized Anemia - SPEP and Immunofixation show no monoclonal gammopathy, B12 normal, folate normal - iron studies point to anemia of chronic disease - s/p transfuse 2 units pRBCS - tentatively scheduled for capusle endosopcy Patient case discussed with and plan approved by attending physician, Dr. Faye.
[2018-05-07] MEDS: NIFEdipine 60 mg ER Tab PO SCH (18:07)
[2018-05-07] MEDS: Micafungin 100 MG in Sodium Chloride 0.9% 100 ML IV SCH (20:26)
[2018-05-07] MEDS: Insulin Detemir 100 units/ml Vial (Levemir) SC SCH (22:44)
[2018-05-08] MEDS: HYDROmorphone 0.5 mg/0.5 ml ISec IVP PRN ×4 (00:56→13:35)
--- NOTE | 2018-05-08 07:09 | CP.PCM.PN ---
Subjective - Date & Time of Evaluation Date of Evaluation: 05/08/18 Time of Evaluation: 06:25 - Subjective Subjective: Awake, lying in bed, no distress Reason for consultation and follow up: Cardiac evaluation of coronary artery disease, admitted for altered mental status Seen and examined by me and Dr. Guerrero Objective - Vital Signs/Intake and Output Vital Signs (last 24 hours): Temp Pulse Resp BP Pulse Ox 97.7 F 87 20 148/59 L 96 05/08/18 00:01 05/08/18 05:12 05/08/18 00:01 05/08/18 05:12 05/08/18 00:01 Intake and Output: 05/08/18 05/08/18 06:59 18:59 Intake Total 220 Output Total 500 Balance -280 - Medications Medications: Current Medications Acetaminophen (Tylenol 325mg Tab) 650 mg PO Q4H PRN PRN Reason: Pain, Mild (1-3) Last Admin: 05/07/18 00:05 Dose: 650 mg Amlodipine Besylate (Norvasc) 10 mg PO DAILY [facility] Last Admin: 05/07/18 11:54 Dose: 10 mg Apixaban (Eliquis) 2.5 mg PO BID [facility]; Protocol Last Admin: 05/07/18 18:06 Dose: 2.5 mg Arformoterol Tartrate (Brovana) 15 mcg IH [id number] [facility] Last Admin: 05/07/18 20:13 Dose: 15 mcg Armodafinil (Nuvigil 250 Mg Tab) 250 mg PO DAILY [facility] Last Admin: 05/07/18 11:54 Dose: 250 mg Aspirin (Ecotrin) 81 mg PO DAILY [facility] Last Admin: 05/07/18 11:54 Dose: 81 mg Atorvastatin Calcium (Lipitor) 20 mg PO HS [facility] Last Admin: 05/07/18 21:24 Dose: 20 mg Clonidine HCl (Catapres-Tts3 0.3 Mg/24 Hr) 1 patch TD Q7D@1000 [facility] Last Admin: 05/02/18 11:39 Dose: 1 patch Darbepoetin Timothy (Aranesp) 25 mcg SC QWK [facility] Last Admin: 05/06/18 15:12 Dose: 25 mcg Darbepoetin Timothy (Aranesp) 100 mcg SC QWK [facility] Last Admin: 05/06/18 15:11 Dose: 100 mcg Docusate Sodium (Colace) 100 mg PO TID [facility] Last Admin: 05/07/18 18:07 Dose: 100 mg Ergocalciferol (Drisdol 50,000 Intl Units Cap) 1 cap PO Q7D [facility] Last Admin: 05/03/18 08:50 Dose: 1 cap Ferrous Gluconate (Fergon) 324 mg PO DAILY [facility] Last Admin: 05/07/18 11:54 Dose: 324 mg Furosemide (Lasix) 40 mg PO DAILY [facility] Last Admin: 05/07/18 11:55 Dose: 40 mg Hydralazine HCl (Apresoline) 100 mg PO Q8 [facility] Last Admin: 05/08/18 05:13 Dose: 100 mg Hydromorphone HCl (Dilaudid) 0.5 mg IVP Q4H PRN PRN Reason: Pain, moderate (4-7) Last Admin: 05/08/18 05:11 Dose: 0.5 mg Meropenem (Merrem Iv 1 Gm Premix) 1 gm in 50 mls @ 100 mls/hr IVPB Q12 [facility]; Protocol Stop: 05/14/18 15:40 Last Admin: 05/07/18 21:23 Dose: 100 mls/hr Micafungin Sodium 100 mg/ (Sodium Chloride) 100 mls @ 100 mls/hr IV 1700 [facility]; Protocol Last Admin: 05/07/18 20:26 Dose: 100 mls/hr Insulin Detemir (Levemir) 20 unit SC [facility] Last Admin: 05/07/18 22:44 Dose: Not Given Insulin Human Regular (Humulin R Low) 0 units SC [facility]; Protocol Last Admin: 05/07/18 22:43 Dose: Not Given Isosorbide Mononitrate (Imdur Er) 60 mg PO DAILY [facility] Last Admin: 05/07/18 11:54 Dose: 60 mg Labetalol HCl (Trandate) 20 mg IV Q4 PRN PRN Reason: Other Last Admin: 05/01/18 15:18 Dose: 20 mg Labetalol HCl (Trandate) 300 mg PO Q8 [facility] Last Admin: 05/08/18 05:12 Dose: 300 mg Levalbuterol HCl (Xopenex) 1.25 mg IH [id number] PRN PRN Reason: Shortness of Breath Last Admin: 05/01/18 19:25 Dose: 1.25 mg Metoclopramide HCl (Reglan) 5 mg PO ACHS [facility] Last Admin: 05/07/18 21:24 Dose: 5 mg Nifedipine (Procardia Xl) 60 mg PO QPM [facility] Last Admin: 05/07/18 18:07 Dose: 60 mg Ondansetron HCl (Zofran Inj) 4 mg IVP Q4H PRN PRN Reason: Nausea/Vomiting Last Admin: 05/06/18 18:12 Dose: 4 mg Pantoprazole Sodium (Protonix Ec Tab) 20 mg PO ACB [facility] Last Admin: 05/07/18 11:55 Dose: 20 mg Silver Sulfadiazine (Silvadene 1% 25 Gm) 0 gm TP BID [facility] Last Admin: 05/07/18 12:15 Dose: Not Given Simethicone (Mylicon Chew Tab) 80 mg PO PCHS PRN PRN Reason: GI distress Last Admin: 05/03/18 19:00 Dose: 80 mg Vitamin B Complex/Vit C/Folic Acid (Nephro-Holland) 1 tab PO 0800 [facility] Last Admin: 05/07/18 11:54 Dose: 1 tab - Labs Labs: 05/07/18 13:20 05/07/18 13:20 PT 13.5 SECONDS (9.4-12.5) H 04/28/18 07:00 INR 1.17 04/28/18 07:00 APTT 26.6 Seconds (25.1-36.5) 04/28/18 07:00 - Constitutional Appears: Non-toxic, No Acute Distress - Head Exam Head Exam: NORMAL INSPECTION, NORMOCEPHALIC - Eye Exam Eye Exam: Normal appearance Pupil Exam: NORMAL ACCOMODATION - ENT Exam ENT Exam: Mucous Membranes Moist, Normal Exam - Respiratory Exam Respiratory Exam: Clear to Ausculation Bilateral, NORMAL BREATHING PATTERN - Cardiovascular Exam Cardiovascular Exam: +S1, +S2 Additional comments: right chest port - GI/Abdominal Exam GI & Abdominal Exam: Soft, Normal Bowel Sounds Additional comments: colostomy abdominal dressing - Extremities Exam Additional comments: 2-3+edema - Neurological Exam Neurological Exam: Awake - Psychiatric Exam Psychiatric exam: Normal Affect, Normal Mood - Skin Skin Exam: Dry, Normal Color, Warm Assessment and Plan - Assessment and Plan (Free Text) Assessment: A 62 year old morbidly obese female who was brought to the ER due to altered mental status. Recently was discharged from [facility] due to small bowel obstruction with resection by Dr. Mckeon. Patient is known to have rectal cancer in the past. with colostomy. History of coronary artery disease with stent of circumflex,hypertension, hyperlipidemia,diabetes, Sleep Apnea, COPD, CHF,history of DVT and PE. CT of head unremarkable, EKG showed NSR, Chest X ray showed moderate CHF however bilateral infiltrate. Recent ECHO LVEF normal.Cardiac status stable.Uncontrolled blood pressure.GI follow up for off and on abdominal pain. Abdominal wound final report positive for megan famata and pseudomonas, ID on consult. On IV antibiotics. Seen by General Surgery and recommended for reoperation to remove infected mesh however patient refusing surgery at this time. Stable vital signs. Plan: No distress,Awake Denies chest pain or shortness of breath Heart rate controlled Controlled blood pressure On Norvasc 10 mg daily,ASA 81 mg daily,Lovenox 30 mg daily,Lasix 40 mg daily Hydralazine 100 mg TID, Imdur Er 60 mg daily,Labetolol 200 mg TID,Procardia 60 mg daily Clonindine patch. Refusing reoperation for infected mesh Nutritional support Abdominal wound final report positive for megan famata and pseudomonas, Continue antibiotics as per ID Continue current treatment Continue current medications Chart reviewed Will follow up Plan and treatment discussed with Dr. Guerrero
[2018-05-08] MEDS: Arformoterol 15 mcg/2 ml Inh Sol IH SCH (07:39)
[2018-05-08] MEDS: Insulin Reg-LOW-Coverage SC SCH (08:15)
[2018-05-08] MEDS: Armodafinil 250 mg Tab PO SCH (09:39)
[2018-05-08] MEDS: Multivitamin Vitamin B Complex (Nephro-Vite) Tab PO SCH (09:39)
[2018-05-08] MEDS: Pantoprazole 20 mg EC Tab PO SCH (09:41)
[2018-05-08] MEDS ORDERED: Nystatin 100,000 Units/gm Topical Pow(15 gm) TOP SCH (10:00)
[2018-05-08 10:08] LABS: HEMOGLOBIN 9.1 g/dL (12.0-16.0); MEAN CELL VOLUME 93.4 fl (80.0-105.0); MEAN CORPUSCULAR HEMOGLOBIN 27.2 pg (25.0-35.0); MEAN CORPUSCULAR HGB CONC 29.1 g/dl (31.0-37.0); MEAN PLATELET VOLUME 9.9 fl (7.0-11.0); RBC 3.35 10^6/uL (3.5-6.1); RED CELL DISTRIBUTION WIDTH 18.1 % (11.5-14.5); WHITE BLOOD COUNT 8.2 10^3/uL (4.5-11.0)
[2018-05-08 10:17] LABS: ALB/GLOB RATIO 0.7 (1.1-1.8); ALBUMIN 2.6 g/dL (3.0-4.8); CALCIUM 8.5 mg/dL (8.4-10.5)
--- NOTE | 2018-05-08 10:44 | CP.PCM.PCO ---
Physician Communication Note - Physician Communication Note Physician Communication Note: Pt cleared for discharge to [facility], per surgeon,and PMD.7 days Merrem,Mycamine
--- NOTE | 2018-05-08 11:31 | CP.PCM.PN ---
Subjective - Date & Time of Evaluation Date of Evaluation: 05/08/18 Time of Evaluation: 11:31 - Subjective Subjective: Surgery Progress Note for Dr. Mckeon Patient seen and examined at bedside. Previous notes past 24h have cleared patient for d/c back to [facility]. Patient states she feels the "same" meaning still with abdominal pain of unspecified quality and location. When she was given the news that she is leaving the hospital today, patient did not previously know it. Denies fever, chills, chest pain, n/v. Per RN no acute events overnight. The camera is in her room since it is a requirement to have it on every floor and they knew she would not care if it was in her vicinity. There were no falls or anything that caused her to have a camera. Objective - Vital Signs/Intake and Output Vital Signs (last 24 hours): Temp Pulse Resp BP Pulse Ox 97.9 F 83 21 165/58 H 95 05/08/18 07:30 05/08/18 07:30 05/08/18 07:30 05/08/18 09:43 05/08/18 07:30 Intake and Output: 05/08/18 05/08/18 06:59 18:59 Intake Total 220 Output Total 500 Balance -280 - Medications Medications: Current Medications Acetaminophen (Tylenol 325mg Tab) 650 mg PO Q4H PRN PRN Reason: Pain, Mild (1-3) Last Admin: 05/07/18 00:05 Dose: 650 mg Amlodipine Besylate (Norvasc) 10 mg PO DAILY [facility] Last Admin: 05/08/18 09:43 Dose: 10 mg Apixaban (Eliquis) 2.5 mg PO BID [facility]; Protocol Last Admin: 05/08/18 09:41 Dose: 2.5 mg Arformoterol Tartrate (Brovana) 15 mcg IH [id number] [facility] Last Admin: 05/08/18 07:39 Dose: 15 mcg Armodafinil (Nuvigil 250 Mg Tab) 250 mg PO DAILY [facility] Last Admin: 05/08/18 09:39 Dose: 250 mg Aspirin (Ecotrin) 81 mg PO DAILY [facility] Last Admin: 05/08/18 09:41 Dose: 81 mg Atorvastatin Calcium (Lipitor) 20 mg PO [facility] Last Admin: 05/07/18 21:24 Dose: 20 mg Clonidine HCl (Catapres-Tts3 0.3 Mg/24 Hr) 1 patch TD Q7D@1000 JR Last Admin: 05/02/18 11:39 Dose: 1 patch Darbepoetin Timothy (Aranesp) 25 mcg SC QWK JR Last Admin: 05/06/18 15:12 Dose: 25 mcg Darbepoetin Timothy (Aranesp) 100 mcg SC QWK JR Last Admin: 05/06/18 15:11 Dose: 100 mcg Docusate Sodium (Colace) 100 mg PO TID [facility] Last Admin: 05/08/18 09:39 Dose: 100 mg Ergocalciferol (Drisdol 50,000 Intl Units Cap) 1 cap PO Q7D [facility] Last Admin: 05/03/18 08:50 Dose: 1 cap Ferrous Gluconate (Fergon) 324 mg PO DAILY [facility] Last Admin: 05/08/18 09:41 Dose: 324 mg Furosemide (Lasix) 40 mg PO DAILY [facility] Last Admin: 05/08/18 09:42 Dose: 40 mg Hydralazine HCl (Apresoline) 100 mg PO Q8 [facility] Last Admin: 05/08/18 05:13 Dose: 100 mg Hydromorphone HCl (Dilaudid) 0.5 mg IVP Q4H PRN PRN Reason: Pain, moderate (4-7) Last Admin: 05/08/18 09:44 Dose: 0.5 mg Meropenem (Merrem Iv 1 Gm Premix) 1 gm in 50 mls @ 100 mls/hr IVPB Q12 [facility]; Protocol Stop: 05/14/18 15:40 Last Admin: 05/07/18 21:23 Dose: 100 mls/hr Micafungin Sodium 100 mg/ (Sodium Chloride) 100 mls @ 100 mls/hr IV 1700 [facility]; Protocol Last Admin: 05/07/18 20:26 Dose: 100 mls/hr Insulin Detemir (Levemir) 20 unit SC HS [facility] Last Admin: 05/07/18 22:44 Dose: Not Given Insulin Human Regular (Humulin R Low) 0 units SC ACHS [facility]; Protocol Last Admin: 05/08/18 08:15 Dose: Not Given Isosorbide Mononitrate (Imdur Er) 60 mg PO DAILY [facility] Last Admin: 05/08/18 09:40 Dose: 60 mg Labetalol HCl (Trandate) 20 mg IV Q4 PRN PRN Reason: Other Last Admin: 05/01/18 15:18 Dose: 20 mg Labetalol HCl (Trandate) 300 mg PO Q8 [facility] Last Admin: 05/08/18 05:12 Dose: 300 mg Levalbuterol HCl (Xopenex) 1.25 mg IH [id number] PRN PRN Reason: Shortness of Breath Last Admin: 05/01/18 19:25 Dose: 1.25 mg Lorazepam (Ativan) 0.5 mg PO TID [facility]; Protocol Metoclopramide HCl (Reglan) 5 mg PO ACHS [facility] Last Admin: 05/08/18 09:40 Dose: 5 mg Nifedipine (Procardia Xl) 60 mg PO QPM [facility] Last Admin: 05/07/18 18:07 Dose: 60 mg Nystatin (Nystop Topical Powder) 0 gm TOP BID [facility] Ondansetron HCl (Zofran Inj) 4 mg IVP Q4H PRN PRN Reason: Nausea/Vomiting Last Admin: 05/06/18 18:12 Dose: 4 mg Pantoprazole Sodium (Protonix Ec Tab) 20 mg PO ACB [facility] Last Admin: 05/08/18 09:41 Dose: 20 mg Silver Sulfadiazine (Silvadene 1% 25 Gm) 0 gm TP BID [facility] Last Admin: 05/07/18 12:15 Dose: Not Given Simethicone (Mylicon Chew Tab) 80 mg PO PCHS PRN PRN Reason: GI distress Last Admin: 05/03/18 19:00 Dose: 80 mg Vitamin B Complex/Vit C/Folic Acid (Nephro-Holland) 1 tab PO 0800 [facility] Last Admin: 05/08/18 09:39 Dose: 1 tab - Labs Labs: 05/08/18 10:00 05/08/18 10:00 PT 13.5 SECONDS (9.4-12.5) H 04/28/18 07:00 INR 1.17 04/28/18 07:00 APTT 26.6 Seconds (25.1-36.5) 04/28/18 07:00 - Constitutional Appears: No Acute Distress, Other (Morbidly obese female resting in bed in no acute distress) - Head Exam Head Exam: ATRAUMATIC, NORMAL INSPECTION, NORMOCEPHALIC - Eye Exam Eye Exam: EOMI, Normal appearance - Neck Exam Neck Exam: Normal Inspection - Respiratory Exam Respiratory Exam: Clear to Ausculation Bilateral, NORMAL BREATHING PATTERN - Cardiovascular Exam Cardiovascular Exam: Murmur (soft holosystolic murmur in all listening posts) - GI/Abdominal Exam GI & Abdominal Exam: Soft, Tenderness (tenderness to palpation in all 4 quadrants), Normal Bowel Sounds. absent: Rebound Additional comments: colostomy intact filled with brown stool. Midline and left dressings c/d/i. - Extremities Exam Extremities Exam: Pedal Edema Additional comments: peripheral pulses strong, peripheral edema present LE - Neurological Exam Neurological Exam: Awake (but lethargic with eyes closed for most of the time and unable to answer most questions. Easily arousable) Assessment and Plan - Assessment and Plan (Free Text) Assessment: 62 y/o female s/p ely-stomal hernia repair / SBO w/ revision of colostomy and creation of 2nd superior mucous fistula on 04/08/18 -Patient to be d/c today 05/08 -recommend outpatient f/u with Dr. Mckeon in 2 weeks, still refusing surgery as of now despite risks explained in previous notes. Will continue to recommend outpatient -continue with wound care --keep midline wound dry: 4x4, abd pad, tape -continue with ostomy care Tammi Arias PGY1
[2018-05-08] MEDS: Meropenem IV 1 gm in NS 1 GM/50 ML BAG IVPB SCH (11:33)
[2018-05-08] MEDS: Silver Sulfadiazine 1% Cream (25 gm) TP SCH ×2 (11:51→11:53)
--- NOTE | 2018-05-08 11:51 | PN ---
DATE: 05/08/2018 REASON FOR CONSULTATION: Cardiac evaluation, coronary artery disease, admitted with altered mental status, possible infected anterior abdominal wall operative site. This note is in addition to dictated by nurse practitioner, Tiffanie Osborne. Yesterday, discussed with surgical team including Dr. sOmar Mckeon, who wanted to do some debridement. Patient refused surgical debridement. No complaint of abdominal pain. History of DVT, PE, history of colostomy, history of rectal cancer, history of CAD. RECOMMENDATION: Continue clonidine patch, continue hydralazine, continue aspirin, Eliquis started for history of DVT/PE for the retirement, maintenance dose. Continue gentle diuretics. Continue atorvastatin. Patient opted for medical treatment, not for surgical debridement. Overall, patient's condition critical and juice scaleman prognosis guarded. Thank you Dr. Florian for providing us the opportunity in taking care of the patient, Pedro Guevara. History of CKD. Again, this note is in addition to dictated by nurse practitioner. Pamela Guerrero MD
--- NOTE | 2018-05-08 12:04 | CP.PCM.PN ---
Subjective - Date & Time of Evaluation Date of Evaluation: 05/08/18 Time of Evaluation: 09:30 - Subjective Subjective: Luan De Paz-Internal Medicine Resident- Hematology Oncology Progress Note Subjective: Patient seen and examined at bedside. No acute events overnight. Admits to chills. Admits to baseline abdominal pain and back pain. Offers no new complaints at this time. Denies fever, chills, chest pain, nausea/vomiting. 12 Point ROS negative except as indicated in HPI Physical Examination: - Constitutional Appears: No Acute Distress - Head Exam Head Exam: ATRAUMATIC, NORMOCEPHALIC - Eye Exam Eye Exam: EOMI, Normal appearance - ENT Exam ENT Exam: Mucous Membranes Moist - Neck Exam Neck exam: Positive for: Full Rom, Normal Inspection. Negative for: Lymphadenopathy, Meningismus, Tenderness, Thyromegaly - Respiratory Exam Respiratory Exam: Diminished breath sounds bilateral lower lobes. absent: Accessory Muscle Use, Decreased Breath Sounds, Rales, Rhonchi, Wheezes, Respiratory Distress - Cardiovascular Exam Cardiovascular Exam: REGULAR RHYTHM, RRR, +S1, +S2. absent: Bradycardia, Tachycardia - GI/Abdominal Exam GI & Abdominal Exam: obese, soft, ostomy right mid abdomen - Extremities Exam Extremities exam: negative for clubbing, cyanosis - Neurological Exam Neurological exam: patient is awake, alert, oriented x 3 responds to verbal stimuli, and follows commands. 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 Heme/onc is consulted for management of elevated ptt. Elevated PTT - resolved - likely false reading x 1 Rectal Adenocarcinoma - pain control- Dilaudid over morphine as half life is shorter and is hepati deshaun metabolized Anemia - H/H stable ~9.1 - CBC CMP ordered and pending - SPEP, immunofixation all within normal limits - Fe is low, TIBC is low, ferritin normal, B12 & folate normal- anemia of chronic disease - s/p transfuse 2 units pRBCS Patient case discussed with and plan approved by attending physician, Dr. Faye. Objective - Vital Signs/Intake and Output Vital Signs (last 24 hours): Temp Pulse Resp BP Pulse Ox 97.9 F 83 21 165/58 H 95 05/08/18 07:30 05/08/18 07:30 05/08/18 07:30 05/08/18 09:43 05/08/18 07:30 Intake and Output: 05/08/18 05/08/18 06:59 18:59 Intake Total 220 Output Total 500 Balance -280 - Medications Medications: Current Medications Acetaminophen (Tylenol 325mg Tab) 650 mg PO Q4H PRN PRN Reason: Pain, Mild (1-3) Last Admin: 05/07/18 00:05 Dose: 650 mg Amlodipine Besylate (Norvasc) 10 mg PO DAILY [facility] Last Admin: 05/08/18 09:43 Dose: 10 mg Apixaban (Eliquis) 2.5 mg PO BID [facility]; Protocol Last Admin: 05/08/18 09:41 Dose: 2.5 mg Arformoterol Tartrate (Brovana) 15 mcg IH [id number] [facility] Last Admin: 05/08/18 07:39 Dose: 15 mcg Armodafinil (Nuvigil 250 Mg Tab) 250 mg PO DAILY [facility] Last Admin: 05/08/18 09:39 Dose: 250 mg Aspirin (Ecotrin) 81 mg PO DAILY [facility] Last Admin: 05/08/18 09:41 Dose: 81 mg Atorvastatin Calcium (Lipitor) 20 mg PO HS [facility] Last Admin: 05/07/18 21:24 Dose: 20 mg Clonidine HCl (Catapres-Tts3 0.3 Mg/24 Hr) 1 patch TD Q7D@1000 [facility] Last Admin: 05/02/18 11:39 Dose: 1 patch Darbepoetin Timothy (Aranesp) 25 mcg SC QWK [facility] Last Admin: 05/06/18 15:12 Dose: 25 mcg Darbepoetin Timothy (Aranesp) 100 mcg SC QWK [facility] Last Admin: 05/06/18 15:11 Dose: 100 mcg Docusate Sodium (Colace) 100 mg PO TID [facility] Last Admin: 05/08/18 09:39 Dose: 100 mg Ergocalciferol (Drisdol 50,000 Intl Units Cap) 1 cap PO Q7D [facility] Last Admin: 05/03/18 08:50 Dose: 1 cap Ferrous Gluconate (Fergon) 324 mg PO DAILY [facility] Last Admin: 05/08/18 09:41 Dose: 324 mg Furosemide (Lasix) 40 mg PO DAILY [facility] Last Admin: 05/08/18 09:42 Dose: 40 mg Hydralazine HCl (Apresoline) 100 mg PO Q8 [facility] Last Admin: 05/08/18 05:13 Dose: 100 mg Hydromorphone HCl (Dilaudid) 0.5 mg IVP Q4H PRN PRN Reason: Pain, moderate (4-7) Last Admin: 05/08/18 09:44 Dose: 0.5 mg Meropenem (Merrem Iv 1 Gm Premix) 1 gm in 50 mls @ 100 mls/hr IVPB Q12 [facility]; Protocol Stop: 05/14/18 15:40 Last Admin: 05/08/18 11:33 Dose: 100 mls/hr Micafungin Sodium 100 mg/ (Sodium Chloride) 100 mls @ 100 mls/hr IV 1700 [facility]; Protocol Last Admin: 05/07/18 20:26 Dose: 100 mls/hr Insulin Detemir (Levemir) 20 unit SC HS [facility] Last Admin: 05/07/18 22:44 Dose: Not Given Insulin Human Regular (Humulin R Low) 0 units SC [facility]; Protocol Last Admin: 05/08/18 08:15 Dose: Not Given Isosorbide Mononitrate (Imdur Er) 60 mg PO DAILY [facility] Last Admin: 05/08/18 09:40 Dose: 60 mg Labetalol HCl (Trandate) 20 mg IV Q4 PRN PRN Reason: Other Last Admin: 05/01/18 15:18 Dose: 20 mg Labetalol HCl (Trandate) 300 mg PO Q8 [facility] Last Admin: 05/08/18 05:12 Dose: 300 mg Levalbuterol HCl (Xopenex) 1.25 mg IH [id number] PRN PRN Reason: Shortness of Breath Last Admin: 05/01/18 19:25 Dose: 1.25 mg Lorazepam (Ativan) 0.5 mg PO TID [facility]; Protocol Last Admin: 05/08/18 11:32 Dose: 0.5 mg Metoclopramide HCl (Reglan) 5 mg PO ACHS [facility] Last Admin: 05/08/18 09:40 Dose: 5 mg Nifedipine (Procardia Xl) 60 mg PO QPM [facility] Last Admin: 05/07/18 18:07 Dose: 60 mg Nystatin (Nystop Topical Powder) 0 gm TOP BID [facility] Last Admin: 05/08/18 11:51 Dose: 1 applic Ondansetron HCl (Zofran Inj) 4 mg IVP Q4H PRN PRN Reason: Nausea/Vomiting Last Admin: 05/06/18 18:12 Dose: 4 mg Pantoprazole Sodium (Protonix Ec Tab) 20 mg PO ACB [facility] Last Admin: 05/08/18 09:41 Dose: 20 mg Silver Sulfadiazine (Silvadene 1% 25 Gm) 0 gm TP BID [facility] Last Admin: 05/08/18 11:53 Dose: 25 gm Simethicone (Mylicon Chew Tab) 80 mg PO PCHS PRN PRN Reason: GI distress Last Admin: 05/03/18 19:00 Dose: 80 mg Vitamin B Complex/Vit C/Folic Acid (Nephro-Holland) 1 tab PO 0800 [facility] Last Admin: 05/08/18 09:39 Dose: 1 tab - Labs Labs: 05/08/18 10:00 05/08/18 10:00 PT 13.5 SECONDS (9.4-12.5) H 04/28/18 07:00 INR 1.17 04/28/18 07:00 APTT 26.6 Seconds (25.1-36.5) 04/28/18 07:00
--- NOTE | 2018-05-08 12:58 | PN ---
DATE: 05/08/2018 PULMONARY PROGRESS NOTE REFERRING PHYSICIAN: Elroy Florian MD SUBJECTIVE: The patient lying in bed, reports abdominal and generalized body pain, reports she did not wear a CPAP machine last night. No headache, rhinitis, cough, shortness of breath, chest pain, nausea, vomiting, diarrhea, leg pain, or leg swelling reported. OBJECTIVE GENERAL: No acute distress. VITAL SIGNS: Blood pressure 165/58, pulse 83, temperature 97.9, pulse ox 95%. HEENT: Moist mucous membranes. Crowded airway. Mallampati score of 4. NECK: Supple. No JVD. LUNGS: Fair airflow bilaterally. CARDIOVASCULAR: S1, S2 audible. ABDOMEN: Colostomy to right side of abdomen with stool present. Surgical side to the left side of abdomen with dressing in place. Abdominal tenderness upon palpation. EXTREMITIES: Trace edema bilaterally. NEUROLOGIC: Awake, alert, verbal. Able to follow commands. LABORATORY DATA: Reviewed. WBC 8.2, RBC 3.35, hemoglobin 9.1, hematocrit 31.3, platelets 273. Sodium 140, potassium 4.9, chloride 108, carbon dioxide 27, anion gap 10, BUN 62, creatinine 1.9, GFR 27, random glucose 128. Calcium 8.5. Total bilirubin 0.3, AST 31, ALT 26, alkaline phosphatase 139, total protein 6.4, albumin 2.6, globulin 3.8, albumin-globulin ratio 0.7. MEDICATIONS: Reviewed. Tylenol 650 mg every four hours as needed for mild pain, Norvasc 10 mg by mouth daily, Eliquis 2.5 mg by mouth twice a day, Brovana 15 mcg inhalation every 12 hours, Nuvigil 250 mg by mouth daily, aspirin 81 mg by mouth daily, Lipitor 20 mg by mouth at bedtime, clonidine patch is on hold, Aranesp 125 mcg weekly, Colace 100 mg by mouth three times a day, ergocalciferol 50,000 units one cap weekly, ferrous gluconate 324 mg by mouth daily, Lasix 40 mg by mouth daily, hydralazine 100 mg by mouth every eight hours, Dilaudid 0.5 mg IV push every four hours as needed for moderate pain, Levemir 20 units at bedtime, Humulin R sliding scale, isosorbide mononitrate 60 mg daily, labetalol 20 mg every four hours as needed, labetalol 300 mg every eight hours, Xopenex 1.25 mg inhalation every six hours as needed, Ativan 0.5 mg three times a day, meropenem 1 g IV every 12 hours, Reglan 5 mg by mouth before meals and at bedtime, micafungin 100 mg daily, Procardia XL 60 mg daily, nystatin topical powder twice a day to the affected area, Zofran 4 mg every four hours as needed, Protonix 20 mg, Silvadene topical twice a day to the affected area, simethicone 80 mg at bedtime as needed, Nephro-Holland one tab daily. IMPRESSION AND PLAN: Status post small-bowel obstruction, status post laparotomy, relocation of colostomy, status post hernia repair, hypoventilation syndrome, history of pulmonary embolism, deep venous thrombosis, hypertension, diabetes, morbid obesity. The patient is currently being treated for sepsis. Discussed with the patient her refusal of operation for mesh removal. The patient educated on possibility of continued infection, necrosis, possibility of . The patient verbalized that she understood, but does not want to have any more surgeries. Suspect adjustment disorder. Suspect possibility of depression. We will recommend Psychiatry consult. Pulmonary point of view, continue to encourage bilevel positive airway pressure use at night, keep head of bed elevated at 45 degrees, sleep apnea precaution, continue inhaled bronchodilators, gastric prophylaxis, anticoagulation therapy. Continue daytime stimulant. Case discussed with Dr. Florian. This patient will benefit from physical therapy, pressure ulcer precaution. This patient was seen and examined with Dr. Ayala. Discussed assessment and plan as described above. Thank you for this consult and we will follow with you. Breezy Schafer, REECE Pamela Ayala MD ANT
--- NOTE | 2018-05-08 15:51 | CP.PCM.PN ---
Subjective - Date & Time of Evaluation Date of Evaluation: 05/08/18 Time of Evaluation: 15:50 - Subjective Subjective: Nephrology Consultation Note: Assessment: altered mental status: fluctuating SBO s/p ex lap Acute Kidney Injury (N17.9) likely pre-renal state left adrenal adenoma, Rt renal hyperdense cyst chronic hypercapnic respi failure Diabetic chronic Kidney Disease (E11.22) Hypertensive Chronic Kidney Disease (I12.9) Chronic Kidney Disease (N18.3) Stage 3 with 2.4 gm proteinuria (R80.9) likely due to DM/HTN/Obesity Anemia Vit D def morbid obesity, CAD s/p stent, COPD/SUMMER, rectal ca s/p colostomy Plan No acute need for renal replacement therapy at this time. HTN control on multiple meds; norvasc hydralazine labetalol nifedipine and imdur. hold ARB due to SHELBI. had d/c clonidine due her mental status and possible side effect of drowsiness. labetalol increased to 300 mg tid. nifedipine to 60 mg bid Monitor Input/Output, daily weights and renal function with basic metabolic panel pulmonary ID heme and surgery following PRBC as needed. 2 units [id number]/18. d/w heme and okay to use KAVYA from heme perspective. on weekly aransep 125 mcg (04/29/18) supplement lytes as needed lasix 40 mg oral daily. stopped IVF due to pulm congestion on CXR and respi concerns. Adrenal adenoma work up with plasma renin/aldosterone, plasma metanephrine NEGATIVE. outpt 1 mg dexa suppression test repeat renal sono in 6 months to assess her Rt renal cyst Dose meds/antibiotics for reduced GFR. Avoid fleets enema/magnesium based laxatives. Avoid nephrotoxins/NSAIDs/ iodinated contrast (unless needed emergently) Glycemic control Further work up/management as per primary team Thanks for allowing me to participate in care of your patient. Will follow patient with you. Please call if any Qs. had d/w team Dr Dae Dawn Office: [phone] Chief Complaint;AMS Reason for consult: Acute Kidney Injury, CKD 3 HPI: Pt is a 62 F with hx of diabetes Mellitus (15 years), hypertension (years), CKD 3 with baseline cr 1.2-1.3 with AKIs, morbid obesity, CAD s/p stent, COPD/SUMMER on CPAP, rectal ca s/p colostomy recently admitted for SBP s/p ex-lap, seen for SHELBI and HTN urgency came back with complaints of AMS and fever. renal consult for CKD and SHELBI management. pt has no urine complaints. Denies OTC/herbal meds or NSAIDs No recent iodinated contrast exposure. No obvious episodes of low BP. ROS: c/o abdomen pain same. denies SOB Physical Examination: General Appearance: comfortable,morbidly obese. better appearing, Vitals reviewed and noted as below Head; Atraumatic, normocephalic ENT: dry mucosa EYES: Pupils are equal, round and reactive to light accommodation. Eye muscles a nd extraocular movement intact. Sclera is anicteric. Neck; supple no lymphadenopathy, no thyromegaly or bruit Lungs: Normal respiratory rate/effort. Breath sounds bilateral equal, diminished at bases but overall limited exam due to her obesity Heart: normal rate. s1s2 normal. No rub or gallop. Extremities: 2+ edema. No varicose veins Neurological: Patient is much more awake follwo commands Skin: Warm and dry. Normal turgor. No rash. Palpitation: Normal elasticity for a ge Abdomen: Abdomen is s/p ex lap soft. tender Psych: deferred MSK: no joint tenderness or swelling. Digits and nails normal, no deformity : kidney or bladder not palpable Labs/imaging reviewed. Past medical history, past surgical history, family history, social history, allergy reviewed and noted as below Family hx: no hx of CKD. Rest non-contributory PET CT 04/2017: neg CT abdomen: left adrenal adenoma 1.9 cm Rt kidney 2.6 cm hyperdense cyst UA 100 protein, neg for blood renin and roma low, metanehrine WNL PTH 133 Vit D 27 ANCA neg, K/L ratio WNL Objective - Vital Signs/Intake and Output Vital Signs (last 24 hours): Temp Pulse Resp BP Pulse Ox 97.9 F 92 H 21 180/78 H 95 05/08/18 07:30 05/08/18 13:34 05/08/18 07:30 05/08/18 13:34 05/08/18 07:30 Intake and Output: 05/08/18 05/08/18 06:59 18:59 Intake Total 220 Output Total 500 Balance -280 - Medications Medications: Current Medications Acetaminophen (Tylenol 325mg Tab) 650 mg PO Q4H PRN PRN Reason: Pain, Mild (1-3) Last Admin: 05/07/18 00:05 Dose: 650 mg Amlodipine Besylate (Norvasc) 10 mg PO DAILY [facility] Last Admin: 05/08/18 09:43 Dose: 10 mg Apixaban (Eliquis) 2.5 mg PO BID [facility]; Protocol Last Admin: 05/08/18 09:41 Dose: 2.5 mg Arformoterol Tartrate (Brovana) 15 mcg IH [id number] [facility] Last Admin: 05/08/18 07:39 Dose: 15 mcg Armodafinil (Nuvigil 250 Mg Tab) 250 mg PO DAILY [facility] Last Admin: 05/08/18 09:39 Dose: 250 mg Aspirin (Ecotrin) 81 mg PO DAILY [facility] Last Admin: 05/08/18 09:41 Dose: 81 mg Atorvastatin Calcium (Lipitor) 20 mg PO HS [facility] Last Admin: 05/07/18 21:24 Dose: 20 mg Clonidine HCl (Catapres-Tts3 0.3 Mg/24 Hr) 1 patch TD Q7D@1000 [facility] Last Admin: 05/02/18 11:39 Dose: 1 patch Darbepoetin Timothy (Aranesp) 25 mcg SC QWK [facility] Last Admin: 05/06/18 15:12 Dose: 25 mcg Darbepoetin Timothy (Aranesp) 100 mcg SC QWK [facility] Last Admin: 05/06/18 15:11 Dose: 100 mcg Docusate Sodium (Colace) 100 mg PO TID [facility] Last Admin: 05/08/18 13:35 Dose: 100 mg Ergocalciferol (Drisdol 50,000 Intl Units Cap) 1 cap PO Q7D [facility] Last Admin: 05/03/18 08:50 Dose: 1 cap Ferrous Gluconate (Fergon) 324 mg PO DAILY [facility] Last Admin: 05/08/18 09:41 Dose: 324 mg Furosemide (Lasix) 40 mg PO DAILY [facility] Last Admin: 05/08/18 09:42 Dose: 40 mg Hydralazine HCl (Apresoline) 100 mg PO Q8 [facility] Last Admin: 05/08/18 13:34 Dose: 100 mg Hydromorphone HCl (Dilaudid) 0.5 mg IVP Q4H PRN PRN Reason: Pain, moderate (4-7) Last Admin: 05/08/18 13:35 Dose: 0.5 mg Meropenem (Merrem Iv 1 Gm Premix) 1 gm in 50 mls @ 100 mls/hr IVPB Q12 [facility]; Protocol Stop: 05/14/18 15:40 Last Admin: 05/08/18 11:33 Dose: 100 mls/hr Micafungin Sodium 100 mg/ (Sodium Chloride) 100 mls @ 100 mls/hr IV 1700 [facility]; Protocol Last Admin: 05/07/18 20:26 Dose: 100 mls/hr Insulin Detemir (Levemir) 20 unit SC HS [facility] Last Admin: 05/07/18 22:44 Dose: Not Given Insulin Human Regular (Humulin R Low) 0 units SC ACHS [facility]; Protocol Last Admin: 05/08/18 08:15 Dose: Not Given Isosorbide Mononitrate (Imdur Er) 60 mg PO DAILY [facility] Last Admin: 05/08/18 09:40 Dose: 60 mg Labetalol HCl (Trandate) 20 mg IV Q4 PRN PRN Reason: Other Last Admin: 05/01/18 15:18 Dose: 20 mg Labetalol HCl (Trandate) 300 mg PO Q8 [facility] Last Admin: 05/08/18 05:12 Dose: 300 mg Levalbuterol HCl (Xopenex) 1.25 mg IH [id number] PRN PRN Reason: Shortness of Breath Last Admin: 05/01/18 19:25 Dose: 1.25 mg Lorazepam (Ativan) 0.5 mg PO TID [facility]; Protocol Last Admin: 05/08/18 13:30 Dose: 0.5 mg Metoclopramide HCl (Reglan) 5 mg PO ACHS [facility] Last Admin: 05/08/18 13:35 Dose: 5 mg Nifedipine (Procardia Xl) 60 mg PO BID JR Nystatin (Nystop Topical Powder) 0 gm TOP BID [facility] Last Admin: 05/08/18 11:51 Dose: 1 applic Ondansetron HCl (Zofran Inj) 4 mg IVP Q4H PRN PRN Reason: Nausea/Vomiting Last Admin: 05/06/18 18:12 Dose: 4 mg Pantoprazole Sodium (Protonix Ec Tab) 20 mg PO ACB [facility] Last Admin: 05/08/18 09:41 Dose: 20 mg Silver Sulfadiazine (Silvadene 1% 25 Gm) 0 gm TP BID [facility] Last Admin: 05/08/18 11:53 Dose: 25 gm Simethicone (Mylicon Chew Tab) 80 mg PO HS PRN PRN Reason: GI distress Last Admin: 05/03/18 19:00 Dose: 80 mg Vitamin B Complex/Vit C/Folic Acid (Nephro-Holland) 1 tab PO 0800 [facility] Last Admin: 05/08/18 09:39 Dose: 1 tab - Labs Labs: 05/08/18 10:00 05/08/18 10:00 PT 13.5 SECONDS (9.4-12.5) H 04/28/18 07:00 INR 1.17 04/28/18 07:00 APTT 26.6 Seconds (25.1-36.5) 04/28/18 07:00
--- NOTE | 2018-05-08 16:01 | CP.PCM.PN ---
Subjective - Date & Time of Evaluation Date of Evaluation: 05/08/18 Time of Evaluation: 10:05 - Subjective Subjective: No fevers, not in distress, still with some abdominal pain. Objective - Vital Signs/Intake and Output Vital Signs (last 24 hours): Temp Pulse Resp BP Pulse Ox 97.9 F 92 H 21 180/78 H 95 05/08/18 07:30 05/08/18 13:34 05/08/18 07:30 05/08/18 13:34 05/08/18 07:30 Intake and Output: 05/08/18 05/08/18 06:59 18:59 Intake Total 220 Output Total 500 Balance -280 - Medications Medications: Current Medications Acetaminophen (Tylenol 325mg Tab) 650 mg PO Q4H PRN PRN Reason: Pain, Mild (1-3) Last Admin: 05/07/18 00:05 Dose: 650 mg Amlodipine Besylate (Norvasc) 10 mg PO DAILY [facility] Last Admin: 05/08/18 09:43 Dose: 10 mg Apixaban (Eliquis) 2.5 mg PO BID [facility]; Protocol Last Admin: 05/08/18 09:41 Dose: 2.5 mg Arformoterol Tartrate (Brovana) 15 mcg IH [id number] [facility] Last Admin: 05/08/18 07:39 Dose: 15 mcg Armodafinil (Nuvigil 250 Mg Tab) 250 mg PO DAILY [facility] Last Admin: 05/08/18 09:39 Dose: 250 mg Aspirin (Ecotrin) 81 mg PO DAILY [facility] Last Admin: 05/08/18 09:41 Dose: 81 mg Atorvastatin Calcium (Lipitor) 20 mg PO HS [facility] Last Admin: 05/07/18 21:24 Dose: 20 mg Clonidine HCl (Catapres-Tts3 0.3 Mg/24 Hr) 1 patch TD Q7D@1000 [facility] Last Admin: 05/02/18 11:39 Dose: 1 patch Darbepoetin Timothy (Aranesp) 25 mcg SC QWK [facility] Last Admin: 05/06/18 15:12 Dose: 25 mcg Darbepoetin Timothy (Aranesp) 100 mcg SC QWK [facility] Last Admin: 05/06/18 15:11 Dose: 100 mcg Docusate Sodium (Colace) 100 mg PO TID [facility] Last Admin: 05/08/18 13:35 Dose: 100 mg Ergocalciferol (Drisdol 50,000 Intl Units Cap) 1 cap PO Q7D [facility] Last Admin: 05/03/18 08:50 Dose: 1 cap Ferrous Gluconate (Fergon) 324 mg PO DAILY [facility] Last Admin: 05/08/18 09:41 Dose: 324 mg Furosemide (Lasix) 40 mg PO DAILY [facility] Last Admin: 05/08/18 09:42 Dose: 40 mg Hydralazine HCl (Apresoline) 100 mg PO Q8 [facility] Last Admin: 05/08/18 13:34 Dose: 100 mg Hydromorphone HCl (Dilaudid) 0.5 mg IVP Q4H PRN PRN Reason: Pain, moderate (4-7) Last Admin: 05/08/18 13:35 Dose: 0.5 mg Meropenem (Merrem Iv 1 Gm Premix) 1 gm in 50 mls @ 100 mls/hr IVPB Q12 [facility]; Protocol Stop: 05/14/18 15:40 Last Admin: 05/08/18 11:33 Dose: 100 mls/hr Micafungin Sodium 100 mg/ (Sodium Chloride) 100 mls @ 100 mls/hr IV 1700 [facility]; Protocol Last Admin: 05/07/18 20:26 Dose: 100 mls/hr Insulin Detemir (Levemir) 20 unit SC HS [facility] Last Admin: 05/07/18 22:44 Dose: Not Given Insulin Human Regular (Humulin R Low) 0 units SC ACHS [facility]; Protocol Last Admin: 05/08/18 08:15 Dose: Not Given Isosorbide Mononitrate (Imdur Er) 60 mg PO DAILY [facility] Last Admin: 05/08/18 09:40 Dose: 60 mg Labetalol HCl (Trandate) 20 mg IV Q4 PRN PRN Reason: Other Last Admin: 05/01/18 15:18 Dose: 20 mg Labetalol HCl (Trandate) 300 mg PO Q8 [facility] Last Admin: 05/08/18 05:12 Dose: 300 mg Levalbuterol HCl (Xopenex) 1.25 mg IH [id number] PRN PRN Reason: Shortness of Breath Last Admin: 05/01/18 19:25 Dose: 1.25 mg Lorazepam (Ativan) 0.5 mg PO TID [facility]; Protocol Last Admin: 05/08/18 13:30 Dose: 0.5 mg Metoclopramide HCl (Reglan) 5 mg PO ACHS [facility] Last Admin: 05/08/18 13:35 Dose: 5 mg Nifedipine (Procardia Xl) 60 mg PO BID [facility] Nystatin (Nystop Topical Powder) 0 gm TOP BID [facility] Last Admin: 05/08/18 11:51 Dose: 1 applic Ondansetron HCl (Zofran Inj) 4 mg IVP Q4H PRN PRN Reason: Nausea/Vomiting Last Admin: 05/06/18 18:12 Dose: 4 mg Pantoprazole Sodium (Protonix Ec Tab) 20 mg PO ACB [facility] Last Admin: 05/08/18 09:41 Dose: 20 mg Silver Sulfadiazine (Silvadene 1% 25 Gm) 0 gm TP BID [facility] Last Admin: 05/08/18 11:53 Dose: 25 gm Simethicone (Mylicon Chew Tab) 80 mg PO PCHS PRN PRN Reason: GI distress Last Admin: 05/03/18 19:00 Dose: 80 mg Vitamin B Complex/Vit C/Folic Acid (Nephro-Holland) 1 tab PO 0800 [facility] Last Admin: 05/08/18 09:39 Dose: 1 tab - Labs Labs: 05/08/18 10:00 05/08/18 10:00 PT 13.5 SECONDS (9.4-12.5) H 04/28/18 07:00 INR 1.17 04/28/18 07:00 APTT 26.6 Seconds (25.1-36.5) 04/28/18 07:00 - Constitutional Appears: Chronically Ill - Head Exam Head Exam: NORMAL INSPECTION - Respiratory Exam Respiratory Exam: Decreased Breath Sounds - Cardiovascular Exam Cardiovascular Exam: +S1, +S2 - GI/Abdominal Exam GI & Abdominal Exam: Soft, Tenderness (mild, dressings in place) Assessment and Plan - Assessment and Plan (Free Text) Plan: Assessment abdominal wall cellulitis with Pseudomonas and C. famata S/P small bowel obstruction in this patient with ventral wall hernia, S/P ventral incarcerated hernia repair, adhesiolysis and revision of colostomy S/P acute coronary syndrome with NSTEMI COPD history of VRE UTI history of severe sepsis secondary to left medial thigh abscess, growing Proteus, S/P incision and drainage DM HTN CAD Unresectable rectal cancer S/P chemotherapy and radiation therapy S/P colostomy S/P Port-a-cath placement morbid obesity with BMI 50 obstructive sleep apnea history of pulmonary embolism S/P IVC filter placement Plan continue Merrem and Mycamine for at least 7 more days and will need to follow up with Surgery and PMD to determine duration of therapy
[2018-05-08 16:43] VITALS: BP 101/66; PULSE 95; RESP 22; TEMP 99.2; O2SAT 96
[2018-05-08] MEDS ORDERED: NIFEdipine 60 mg ER Tab PO SCH (18:00)
--- NOTE | 2018-05-09 12:02 | PN ---
DATE: 05/07/2018 SUBJECTIVE: Patient still feels weak, she is more alert, more awake, Dr. Ayala on the bedside. Patient complains that she wants to move out of the hospital, she wants to go home, she refused surgery, any intervention at this time and she wants just no surgery. explained to her risks and benefits of surgery. PHYSICAL EXAMINATION: GENERAL: She has no respiratory distress and she is more alert and she seems moving her lower and upper extremity better. VITAL SIGNS: Temperature 98.5, heart rate 82, blood pressure 162/65, respirations 20, saturation 90% on room air. HEAD AND NECK: Normal. No JVD. No thyromegaly. CHEST: Clear bilaterally. CARDIAC: First sound and second sound are normal. Systolic murmur on the pulmonary area. ABDOMEN: Large, huge. Abdomen was midline sutures and midline incisions. Patient does have a new colostomy bag on the right side of the abdomen. On the left side, there is mucous. Another colostomy that is the blind end of the colon. EXTREMITIES: Lower extremity edema, she seems little better, but still edematous above the ankle. NEUROLOGIC: She is more alert, awake and oriented x3, more interactive, talkative and moves upper and lower extremities better than before, strength is better. LABORATORY DATA: On the 05/07; white count 9.4, hemoglobin 8.8, hematocrit 30.2, platelets 261. Chemistry; sodium 141, potassium 4.6, chloride 108, bicarb 27, BUN 64, creatinine 1.7, blood sugar 122, calcium 8.6, total bilirubin is 0.2. Liver functions test is normal. IMPRESSION AND PLAN: 1. Abdominal wall hernia status post bowel reduction and hernia repair as per Dr. Pascal. Patient will need another surgery to get the infection out and to get the mesh out, discussed with the patient in detail, she refused, she understands it very well and she does not want any surgery at this time. Discussed with Dr. Pascal, Dr. Cheek. We will continue IV antibiotics at this time for another 7 more days and antifungal. Continue local wound care. CT scan was reviewed by and Dr. Ayala, and we will followup, which is done with p.o. contrast, CT abdomen with p.o. contrast was reviewed by me and Dr. Ayala. We will continue current antibiotic, local wound care and followup on that. 2. Generalized weakness, patient seems doing well mentally ji. She is more alert, awake and oriented. She is more interactive, moving extremity better and we will continue BiPAP, continue Nuvigil. Discussed with Dr. Ayala if you do not have Nuvigil in the rehab unit, we will consider amantadine 100 twice daily, may go up to 200 twice daily. We will followup on that. Continue BiPAP. Continue inhaled bronchodilators. Continue physical therapy, out of bed to chair. 3. Sacral decubitus stage 2, continue local wound care. Silvadene once or twice a day for decubitus. 4. Insulin-dependent diabetes, continue insulin coverage, Levemir. 5. Hypertension, difficult to control. Continue blood pressure meds, labetalol, I still added clonidine patch. We will discuss with the other crop consultant about this and pressure seems very well. Continue Procardia, continue Norvasc, followup clinically. 6. Chronic renal failure with acute worsening. Patient back to her baseline creatinine, continue that, continue Lasix p.o. for edema. 7. Right-sided heart failure, pulmonary hypertension. She has good left ventricular functions, continue BiPAP, continue underlying chronic obstructive pulmonary disease treatment, Lasix and oxygen and we will follow up clinically. At this time, continue current treatment. Patient will go to rehab in the day, we will arrange for that. Elroy Florian MD
--- NOTE | 2018-05-09 13:52 | DS ---
HISTORY OF PRESENT ILLNESS: Patient is in the bed lying supine. She wants to get up. She wants to be out of bed to chair. Patient otherwise refused surgery clearly. She does not want any surgical interventions and she wants to get out of here. Discussed the risk and benefits of surgery as the patient said she does not want it. PHYSICAL EXAMINATION: As follows: VITAL SIGNS: Temperature 97.9, heart rate 83, blood pressure 165/58, respirations 21, and sat 96% on room air. HEAD AND NECK: Normal. No JVD. No thyromegaly. CHEST: Clear bilaterally. CARDIAC: First sound and second sound normal. Systolic murmur. . ABDOMEN: Obese with midline suture and colostomy. Her bag which is draining soft stools. Patient has midline incisions which is stable and sutures and patient had some dressing on it. EXTREMITIES: Lower extremity, bilateral edema above the ankle. NEUROLOGIC: Patient is awake, alert, and oriented x3. She moves all extremities. LABORATORY DATA: On the day of discharge is as follows; her sugar is 102, her sodium is 140, potassium 4.9, chloride 108. bicarb 27, BUN 62, creatinine 1.9. Patient's liver function test except alkaline phosphatase at 139. CBC shows white count 8.2, hemoglobin 9.1, hematocrit 31.6, platelets 273. HOSPITAL COURSE: Patient came back from rehab because of being mentally very lethargic, non-cooperative with the Physical Therapy team, came in and evaluated by surgeon, Infectious Disease, GI. She was treated for gastroparesis, pureed diet plus Reglan plus Protonix. Patient also was given in addition to that and evaluation of the wound area was done by Dr. Mckeon and the team. Patient does have some infections collections. Patient refused surgery. She needs another surgery which is high risk and another implants of another mesh, however, the risk of infection is high too. Patient refused any surgical interventions and surgical team evaluated the patient and ID consults recommend the meropenem and antifungal therapy IV till the 05/14. Patient also was seen by Pulmonary doctor, Dr. Ayala; GI doctor, Dr. Benitez; and Infectious Disease doctor, Dr. Cheek. Patient overtime seems doing better. Her mental status improved. She is off Lyrica, cutdown the dose of Dilaudid. She was given Provigil and Nuvigil which improved her mental status and maintained BiPAP. Patient will be discharged to [facility]. Her blood pressure also was out of normal was being Dr. Anderson seeing the patient and blood pressure management done and pressure seems stable. Also, Cardiology doctor, Dr. Guerrero has seen the patient. Patient will be back to rehab. DISCHARGE DIAGNOSES: 1. Acute change in mental status could be due to combined medications, worsening of sleep apnea, and wound infections seems better. 2. Abdominal wall surgical site infection. She does have pseudomonas and Celsa. We will continue intravenous antibiotics at assisted. Patient refused surgery. 3. Hypertension, uncontrolled, it is better now with the labetalol orally plus clonidine plus Procardia, and Norvasc. 4. Coronary artery disease, non-ST elevation myocardial infarction; patient also has pulmonary hypertension. Continue , continue diuretics, oxygen bilevel positive airway pressure. 5. Obstructive sleep apnea, morbid obesity, chronic obstructive pulmonary disease. Continue bilevel positive airway pressure. Continue inhaled bronchodilators. 6. Anemia, chronic. 7. History of rectal carcinoma treated with resection and radiation and chemo. She seems cancer free at this time. Continue current therapy and blood transfusions as needed. Hemoglobin is 9, it is better than before. 8. Morbid obesity. 9. Insulin-dependent diabetes. Continue insulin; blood sugar running good. 10. Generalized weakness, deconditioning. Continue physical therapy and follow up clinically. Patient will be transferred to [facility] and will follow up on that. Elroy Florian MD
== END 2018-05-08 17:07 | DRG 919 ==
LOC: ED 15:55 → ERH 17:07 → 2RSO 17:35 → 3RSO 04-29 19:33
PROVIDERS: ADMIT Internal Medicine; ATTEND Internal Medicine
PROC: 5A09357 Assistance with Respiratory Ventilation, Less than 24 Consecutive Hours, Continuous Positive Airway Pressure (ICD-10-PCS; principal; 2018-04-26)
PROC: 30233N1 Transfusion of Nonautologous Red Blood Cells into Peripheral Vein, Percutaneous Approach (ICD-10-PCS; 2018-04-29)
DX: T85.79XA Infection and inflammatory reaction due to other internal prosthetic devices, implants and grafts, initial encounter (principal); A41.9 Sepsis, unspecified organism; G93.41 Metabolic encephalopathy; I50.33 Acute on chronic diastolic (congestive) heart failure; J18.9 Pneumonia, unspecified organism; R65.20 Severe sepsis without septic shock; L03.311 Cellulitis of abdominal wall; I13.0 Hypertensive heart and chronic kidney disease with heart failure and stage 1 through stage 4 chronic kidney disease, or unspecified chronic kidney disease; J44.0 Chronic obstructive pulmonary disease with (acute) lower respiratory infection; Z68.43 Body mass index [BMI] 50.0-59.9, adult; N17.9 Acute kidney failure, unspecified; D68.59 Other primary thrombophilia; C20 Malignant neoplasm of rectum; G47.33 Obstructive sleep apnea (adult) (pediatric); N18.3 Chronic kidney disease, stage 3 (moderate); E78.5 Hyperlipidemia, unspecified; E11.22 Type 2 diabetes mellitus with diabetic chronic kidney disease; E11.59 Type 2 diabetes mellitus with other circulatory complications; E11.65 Type 2 diabetes mellitus with hyperglycemia; R41.82 Altered mental status, unspecified; E66.01 Morbid (severe) obesity due to excess calories; Z93.3 Colostomy status; Z79.82 Long term (current) use of aspirin; E86.0 Dehydration; I25.10 Atherosclerotic heart disease of native coronary artery without angina pectoris; I25.2 Old myocardial infarction; D63.8 Anemia in other chronic diseases classified elsewhere; I27.20 Pulmonary hypertension, unspecified; Z92.3 Personal history of irradiation; Z91.19 Patient's noncompliance with other medical treatment and regimen; L89.152 Pressure ulcer of sacral region, stage 2; D63.1 Anemia in chronic kidney disease; R06.89 Other abnormalities of breathing; Z79.4 Long term (current) use of insulin; E11.43 Type 2 diabetes mellitus with diabetic autonomic (poly)neuropathy; D35.02 Benign neoplasm of left adrenal gland; D35.01 Benign neoplasm of right adrenal gland; D50.9 Iron deficiency anemia, unspecified; E55.9 Vitamin D deficiency, unspecified; E78.00 Pure hypercholesterolemia, unspecified; G47.10 Hypersomnia, unspecified; I16.0 Hypertensive urgency; Z86.711 Personal history of pulmonary embolism; K21.9 Gastro-esophageal reflux disease without esophagitis; K31.84 Gastroparesis; K42.9 Umbilical hernia without obstruction or gangrene; Y83.2 Surgical operation with anastomosis, bypass or graft as the cause of abnormal reaction of the patient, or of later complication, without mention of misadventure at the time of the procedure; Z53.20 Procedure and treatment not carried out because of patient's decision for unspecified reasons; Z74.01 Bed confinement status; Z79.01 Long term (current) use of anticoagulants; Z79.899 Other long term (current) drug therapy; Z85.048 Personal history of other malignant neoplasm of rectum, rectosigmoid junction, and anus; Z86.718 Personal history of other venous thrombosis and embolism; Z86.79 Personal history of other diseases of the circulatory system; Z87.01 Personal history of pneumonia (recurrent); Z90.49 Acquired absence of other specified parts of digestive tract; Z95.5 Presence of coronary angioplasty implant and graft; Z92.21 Personal history of antineoplastic chemotherapy; Z91.14 Patient's other noncompliance with medication regimen

== ENCOUNTER 2018-05-11 13:01 | Inpatient (IN) | payer MEDICARE, OTHER ==
[2018-05-11] MEDS: Albuterol-Ipratrop 3 mg / 0.5 (3 ml) UD IH SCH ×4 (13:30→21:34)
--- NOTE | 2018-05-11 13:31 | ED PDOC ---
Arrival/HPI - General Chief Complaint: Fever Time Seen by Provider: 05/11/18 13:03 Historian: Long Term, EMS - History of Present Illness Narrative History of Present Illness (Text): 05/11/18 13:28 A 62 year old female, whose past medical history includes Small Bowel Obstruction (recent Surgery, Dr. Mckeon), HTN, HLD, DM, Sleep Apnea, COPD, CHF, is brought into the emergency department from group home for further evalua tion. As per group home, patietn appeared more lethargic and developed a fever today. Patient is alert and oriented in the emergency department. Patient denies chest pain, cough, abdominal pain, nausea, vomiting, or any other complaint. Patient's history limited. PMD: Dr. Florian Surgery: Dr. Mckeon Pulmonology: Dr. Ayala Renal: Dr. Dawn Time/Duration: Other (Today) Symptom Onset: Sudden Symptom Course: Unchanged Activities at Onset: Rest, Light Context: Home (Long Term) Past Medical History - Provider Review Nursing Documentation Reviewed: Yes - Infectious Disease Hx of Infectious Diseases: None - Tetanus Immunization Tetanus Immunization: Unknown - Reproductive Menopause: Yes - Cardiac Hx Hypertension: Yes - Pulmonary Hx Chronic Obstructive Pulmonary Disease (COPD): Yes - Neurological Hx Neurological Disorder: Yes Hx Dizziness: Yes - HEENT Hx Macular Degeneration: No - Renal Hx Renal Failure: Yes - Endocrine/Metabolic Hx Diabetes Mellitus Type 2: Yes - Hematological/Oncological Hx Blood Disorders: Yes Hx Anemia: Yes - Integumentary Hx Dermatological Disorder: No - Musculoskeletal/Rheumatological Hx Falls: No - Gastrointestinal Hx Gastrointestinal Disorders: Yes (RECTAL CA WITH COLOSTOMY,GI BLEED) Hx Colostomy: Yes Hx Gastroesophageal Reflux: Yes - Genitourinary/Gynecological Hx Genitourinary Disorders: Yes (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,UTI) - Psychiatric Hx Psychophysiologic Disorder: Yes Hx Anxiety: Yes Hx Substance Use: No - Surgical History Hx Appendectomy: Yes Hx Coronary Stent: Yes Hx Vascular Access Device: Yes Other/Comment: colostomy - Anesthesia Hx Anesthesia: Yes Hx Anesthesia Reactions: No Hx Malignant Hyperthermia: No - Suicidal Assessment Feels Threatened In Home Enviroment: No Family/Social History - Physician Review Nursing Documentation Reviewed: Yes Family/Social History: No Known Family HX Smoking Status: Never Smoked Hx Alcohol Use: No Hx Substance Use: No Hx Substance Use Treatment: No Allergies/Home Meds Allergies/Adverse Reactions: Allergies No Known Allergies Allergy (Verified 04/08/18 21:16) Home Medications: Home Meds Medication Instructions Recorded Confirmed Apixaban [Eliquis] 1 tab PO DAILY 02/10/18 04/08/18 Furosemide [Lasix] 1 tab PO HS 02/10/18 04/08/18 Isosorbide Mononitrate [Imdur] 1 tab PO DAILY 02/10/18 04/08/18 Metoprolol Succinate [Kapspargo 1 tab PO DAILY 02/10/18 04/08/18 Sprinkle] Oxybutynin Chloride [Oxybutynin 1 tab PO DAILY 02/10/18 04/08/18 Chloride ER] Pregabalin [Lyrica] 1 tab PO DAILY 02/10/18 04/08/18 Primidone [Mysoline] 1 tab PO DAILY 02/10/18 04/08/18 metOLazone [Zaroxolyn] 1 tab PO DAILY 02/10/18 04/08/18 Review of Systems - Physician Review All systems were reviewed & negative as marked: Yes - Review of Systems Constitutional: Fevers, Other (Lethargic) Respiratory: absent: SOB, Cough Cardiovascular: absent: Chest Pain, MOSELEY Gastrointestinal: absent: Abdominal Pain, Nausea, Vomiting Genitourinary Female: absent: Urine Output Changes Musculoskeletal: absent: Back Pain, Neck Pain Neurological: absent: Headache, Dizziness Physical Exam Vital Signs Reviewed: Yes Vital Signs Temp Pulse Resp BP Pulse Ox 05/11/18 13:04 98.5 F 95 H 19 146/72 92 L Temperature: Afebrile Blood Pressure: Normal Pulse: Tachycardic Respiratory Rate: Normal Appearance: Positive for: Non-Toxic, Comfortable Pain Distress: None Mental Status: Positive for: Alert and Oriented X 3, other (Appears drowsy) - Systems Exam Head: Present: Atraumatic, Normocephalic Pupils: Present: PERRL Extroacular Muscles: Present: EOMI Conjunctiva: Present: Normal Mouth: Present: Moist Mucous Membranes Neck: Present: Normal Range of Motion Respiratory/Chest: Present: Clear to Auscultation, Good Air Exchange. No: Respiratory Distress, Accessory Muscle Use Cardiovascular: Present: Regular Rate and Rhythm, Normal S1, S2. No: Murmurs Abdomen: Present: Ostomy Tubes (Colostomy bag. Clean, dry, and intact. ). No: Tenderness, Distention, Peritoneal Signs Back: Present: Normal Inspection Upper Extremity: Present: Normal Inspection. No: Cyanosis, Edema Lower Extremity: Present: Normal Inspection. No: Edema Neurological: Present: GCS=15, CN II-XII Intact, Speech Normal Skin: Present: Warm, Dry, Normal Color, Other (No skin ulcers.). No: Rashes Psychiatric: Present: Alert, Oriented x 3, Normal Insight, Normal Concentration Medical Decision Making ED Course and Treatment: 05/11/18 13:32 Impression: A 62 year old female is brought into the emergency department from group home for further evaluation of increased lethargy and fever. Differential Diagnosis included but are not limited to: r/o sepsis, r/o hypercapnia, r/o electrolyte imbalance Plan: -- Abdomen/Pelvis CT -- EKG -- Chest X-ray -- Labs -- Blood/ Urine Culture -- Urinalysis -- Duoneb, Lasix, and SOLU- Medrol -- Oxy Sat at 81% on Room air so will place on BiPAP -- Reassess and disposition Prior Visits: Notes and results from previous visits were reviewed. Patient was last seen in the emergency department on 04/25/18 for increased lethargy and elevated temperature. patient was hospitalized. Progress Notes: 05/11/18 13:34: Case discussed with Dr. Florian. States that patient is on Merepenum and anti-fungal for infection. Requests consults from Dr. Cheek (ID), Dr. Mckeon (Surgery), Dr. Ayala (Respiratory). Notes that patient is on BiPAP at group home. He states that the patient had a 101 fever. He is thinking perhaps this is a new infection, worsening infection, or Remeron/Ativan treatments given as needed that are causing her to be sleepy. 05/11/18 14:04 EKG: Ordered, reviewed, and independently interpreted the EKG. Rate : 99 BPM Rhythm : NSR 05/11/18 14:13: Dr. Florian came to evaluate patient in the emergency department. We agreed to place the patient on BiPAP 05/09 at 30% FiO2. He requested a chest CT and accepts patient to his service. Chest X-ray Signed By: Isaac Goyal MD Date Signed: 05/11/18 1429 IMPRESSION: Moderate to severe pulmonary vascular congestion Creator : Isaac Snow MD PROCEDURE: CT Abdomen and Pelvis without intravenous contrast IMPRESSION: Midline ostomies are seen. Surgical clips are seen over the left side of the abdomen. There is soft tissue thickening in the presacral space.No change from recent exam. CT completed for Abd/Pelv. CXR shows Congestions. CT Chest cancelled due to adama ent not fitting on the machine due to her shoulder with. Urine in the linares appeared very cloudy. UTI treated emperically already. Follow up cultures. Potassium elevated and treated with Kayexlate. Magnesium low and treated with PO Magnesium Oxide. - Critical Care Critical Care Minutes: 30 minutes - Lab Interpretations I have reviewed the lab results: Yes - EKG Interpretation Interpreted by ED Physician: Yes Type: 12 lead EKG - Scribe Statement The provider has reviewed the documentation as recorded by the Scribe Sushma Mcgill Provider Scribe Attestation: All medical record entries made by the Scribe were at my direction and personally dictated by me. I have reviewed the chart and agree that the record accurately reflects my personal performance of the history, physical exam, medical decision making, and the department course for this patient. I have also personally directed, reviewed, and agree with the discharge instructions and disposition. Disposition/Present on Arrival - Present on Arrival Any Indicators Present on Arrival: Yes History of DVT/PE: Yes History of Uncontrolled Diabetes: No Urinary Catheter: No History of Decub. Ulcer: No History Surgical Site Infection Following: None - Disposition Have Diagnosis and Disposition been Completed?: Yes Diagnosis: Urinary tract infection, Congestive heart failure, COPD (chronic obstructive pulmonary disease) Disposition: HOSPITALIZED Disposition Time: 14:13 Patient Plan: Admission Condition: GUARDED
[2018-05-11 14:06] LABS: BASO # 0.04 K/mm3 (0.0-2.0); BASO % 0.5 % (0.0-3.0); EOS # 0.2 (0.0-0.7); EOS % 2.8 % (1.5-5.0); GRAN # 5.09 (1.4-6.5); GRAN % 61.6 % (50.0-68.0); HEMOGLOBIN 8.9 g/dL (12.0-16.0); LYMPH # 2.3 (1.2-3.4); LYMPH % 27.8 % (22.0-35.0); MEAN CELL VOLUME 92.7 fl (80.0-105.0); MEAN CORPUSCULAR HEMOGLOBIN 27.2 pg (25.0-35.0); MEAN CORPUSCULAR HGB CONC 29.4 g/dl (31.0-37.0); MEAN PLATELET VOLUME 9.6 fl (7.0-11.0); MONO # 0.6 (0.1-0.6); MONO % 7.3 % (1.0-6.0); RBC 3.27 10^6/uL (3.5-6.1); RED CELL DISTRIBUTION WIDTH 18.5 % (11.5-14.5); WHITE BLOOD COUNT 8.3 10^3/uL (4.5-11.0)
[2018-05-11 14:08] LABS: VENOUS BLOOD GAS BASE EXCESS 1.6 mmol/L (0.0-2.0); VENOUS BLOOD GAS PO2 92 mm/Hg (30-55)
[2018-05-11 14:20] LABS: ALB/GLOB RATIO 0.7 (1.1-1.8); ALBUMIN 2.7 g/dL (3.0-4.8); CALCIUM 8.5 mg/dL (8.4-10.5)
[2018-05-11] MEDS ORDERED: Vancomycin 1gm in NS 250ml 1 GM/250 ML BAG IVPB STA (14:33)
--- NOTE | 2018-05-11 14:33 | RAD ---
Date of service: 05/11/2018 HISTORY: Sepsis Patient COMPARISON: 04/30/2018 FINDINGS: LUNGS: No active pulmonary disease. PLEURA: No significant pleural effusion identified, no pneumothorax apparent. CARDIOVASCULAR: No aortic atherosclerotic calcification present. Severe cardiomegaly moderate to severe pulmonary vascular congestion OSSEOUS STRUCTURES: No significant abnormalities. VISUALIZED UPPER ABDOMEN: Normal. OTHER FINDINGS: None. IMPRESSION: Moderate to severe pulmonary vascular congestion
[2018-05-11 14:44] LABS: INR 1.3; PARTIAL THROMBOPLASTIN TIME 20.4 Seconds (25.1-36.5)
[2018-05-11] MEDS ORDERED: Meropenem IV 1 gm in NS 1 GM/50 ML BAG IVPB SCH (14:45)
--- NOTE | 2018-05-11 15:36 | CARD ---
APPROVED REPORT Date of service: 05/11/2018 EKG Measurement Heart [id number] [id number] <Conclusion> Normal sinus rhythm
--- NOTE | 2018-05-11 15:43 | CT ---
Date of service: 05/11/2018 PROCEDURE: CT Abdomen and Pelvis without intravenous contrast HISTORY: abd pain COMPARISON: 05/07/2018 TECHNIQUE: Without contrast.. Contrast dose: Radiation dose: Total exam DLP = 1093.77 mGy-cm. This CT exam was performed using one or more of the following dose reduction techniques: Automated exposure control, adjustment of the mA and/or kV according to patient size, and/or use of iterative reconstruction technique. FINDINGS: LOWER THORAX: Unremarkable. LIVER: Unremarkable. No gross lesion or ductal dilatation. GALLBLADDER AND BILE DUCTS: Unremarkable. PANCREAS: Unremarkable. No gross lesion or ductal dilatation. SPLEEN: Unremarkable. ADRENALS: Unremarkable. No mass. KIDNEYS AND URETERS: Unremarkable. No hydronephrosis. No solid mass. VASCULATURE: Unremarkable. No aortic aneurysm. No aortic atherosclerotic calcification or mural plaque present. BOWEL: Unremarkable. No obstruction. No gross mural thickening. Midline ostomies are seen. Surgical clips are seen over the left side of the abdomen. There is soft tissue thickening in the presacral space.No change from recent exam. APPENDIX: Unremarkable. Normal appendix. PERITONEUM: Unremarkable. No free fluid. No free air. LYMPH NODES: Unremarkable. No enlarged lymph nodes. BLADDER: Unremarkable. REPRODUCTIVE: Unremarkable. BONES: No acute fracture. OTHER FINDINGS: None. IMPRESSION: Midline ostomies are seen. Surgical clips are seen over the left side of the abdomen. There is soft tissue thickening in the presacral space.No change from recent exam.
[2018-05-11 16:00] LABS: URINE BILIRUBIN NEGATIVE (NEGATIVE); URINE BLOOD NEGATIVE (NEGATIVE); URINE GLUCOSE (UA) NEGATIVE (NEGATIVE); URINE LEUKOCYTE ESTERASE TRACE Leu/uL (NEGATIVE); URINE PROTEIN 100 mg/dL (<30 mg/dL); URINE UROBILINOGEN 0.2 E.U./dL (<1 E.U./dL)
[2018-05-11 16:01] LABS: URINE APPEARANCE SLIGHT-CLOUDY (CLEAR); URINE COLOR YELLOW (YELLOW)
[2018-05-11 16:07] LABS: URINE RBC 0 - 2 /hpf (0-2)
[2018-05-11 16:08] LABS: URINE BACTERIA MANY (NEG); URINE EPITHELIAL CELLS 0 - 2 /hpf (0-5)
[2018-05-11 16:13] LABS: ARTERIAL BLOOD GAS HCO3 27.5 mmol/L (21-28); ARTERIAL BLOOD GAS HEMOGLOBIN 8.5 g/dL (11.7-17.4); ARTERIAL BLOOD GAS O2 CAPACITY 11.7 mL/dl (16-24); ARTERIAL BLOOD GAS O2 CONTENT 11.5 ML/dl (15-23); ARTERIAL BLOOD GAS O2 SAT 98.5 % (95-98); ARTERIAL BLOOD GAS PCO2 51 mm/Hg (35-45); ARTERIAL BLOOD GAS PH 7.34 (7.35-7.45); ARTERIAL BLOOD GAS TCO2 29.1 mmol.L (22-28)
[2018-05-11 16:19] LABS: TROPONIN I 0.15 ng/mL
[2018-05-11] MEDS ORDERED: Magnesium Oxide 400 mg Tab UD PO STA (16:19)
[2018-05-11] MEDS ORDERED: Sod Polystyrene Sulf 15 gm/60 ml Susp PO STA (16:19)
[2018-05-11] MEDS ORDERED: Albuterol-Ipratrop 3 mg / 0.5 (3 ml) UD IH PRN (17:38)
[2018-05-11 19:53] LABS: BASO # 0.06 K/mm3 (0.0-2.0); BASO % 0.7 % (0.0-3.0); EOS # 0.1 (0.0-0.7); EOS % 0.8 % (1.5-5.0); GRAN # 7.8 (1.4-6.5); GRAN % 84.7 % (50.0-68.0); HEMOGLOBIN 9.1 g/dL (12.0-16.0); LYMPH # 1.1 (1.2-3.4); MEAN CELL VOLUME 92.7 fl (80.0-105.0); MEAN CORPUSCULAR HEMOGLOBIN 27.8 pg (25.0-35.0); MEAN PLATELET VOLUME 9.5 fl (7.0-11.0); MONO # 0.2 (0.1-0.6); MONO % 1.8 % (1.0-6.0); RBC 3.27 10^6/uL (3.5-6.1); RED CELL DISTRIBUTION WIDTH 18.5 % (11.5-14.5); WHITE BLOOD COUNT 9.2 10^3/uL (4.5-11.0)
--- NOTE | 2018-05-11 20:30 | CP.PCM.CON ---
History of Present Illness - History of Present Illness History of Present Illness: General Surgery Consult Note for Dr. Mckeon Consulted for Recent surgery during most recent admission PAtient is a 62 yr old female with PMH SBO, HTN, HLD, DM, SUMMER, COPD, CHF was brought to [facility] for lethargy and fever at [facility] today and subsequently admitted. Surgery was consulted due to patient having had surgery on 04/[address] Mckeon for incarcerated umbilical hernia and associated SBO. Procedure performed was exploratory laparotomy, ventral hernia repair with mesh, revision of colostomy with mucous fistula and lysis of adhesions. During the previous admission it was the impression of Dr. Mckeon and the surgical team that the patient may have an infection involving th mesh placed for the hernia repair and it was recommended that she undergo an additional procedure to have the mesh removed. The patient was refusing to have any further procedures despite being educated about the risks of not undergoing the removal. Patient was placed on antibiotic therapy during this time by Infectious Disease. At this time patient denies any abdominal pain, n/v,f/c, and constipation. She endorses soft brown stool output from her stoma as well as gas. She is continuing to refuse any future procedures for mesh removal. PMHx of CAD, CHF, HTN, DVT/PE, rectal ca PSHx: loop colostomy, APR, appendectomy, cardiac stents, ely-stomal hernia repair w/ colostomy revision and creation of 2nd mucous fistula SHx: denies tobacco, EtOH, drug use Review of Systems - Review of Systems All systems: reviewed and no additional remarkable complaints except (as per HPI) Past Patient History - Infectious Disease Hx of Infectious Diseases: None - Tetanus Immunizations Tetanus Immunization: Unknown - Past Social History Smoking Status: Never Smoked - CARDIAC Hx Hypertension: Yes - PULMONARY Hx Chronic Obstructive Pulmonary Disease (COPD): Yes - NEUROLOGICAL Hx Neurological Disorder: Yes Hx Dizziness: Yes - HEENT Hx Macular Degeneration: No - RENAL Hx Renal Failure: Yes - ENDOCRINE/METABOLIC Hx Diabetes Mellitus Type 2: Yes - HEMATOLOGICAL/ONCOLOGICAL Hx Blood Disorders: Yes Hx Anemia: Yes - INTEGUMENTARY Hx Dermatological Problems: No - MUSCULOSKELETAL/RHEUMATOLOGICAL Hx Falls: No - GASTROINTESTINAL Hx Gastrointestinal Disorders: Yes (RECTAL CA WITH COLOSTOMY,GI BLEED) Hx Colostomy: Yes Hx Gastroesophageal Reflux: Yes - GENITOURINARY/GYNECOLOGICAL Hx Genitourinary Disorders: Yes (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,UTI) - PSYCHIATRIC Hx Psychophysiologic Disorder: Yes Hx Anxiety: Yes Hx Substance Use: No - SURGICAL HISTORY Hx Appendectomy: Yes Hx Coronary Stent: Yes Hx Vascular Access Device: Yes Other/Comment: colostomy - ANESTHESIA Hx Anesthesia: Yes Hx Anesthesia Reactions: No Hx Malignant Hyperthermia: No Meds Allergies/Adverse Reactions: Allergies Allergy/AdvReac Type Severity Reaction Status Date / Time No Known Allergies Allergy Verified 05/11/18 17:26 - Medications Medications: Current Medications Albuterol/Ipratropium (Duoneb 3 Mg/0.5 Mg (3 Ml) Ud) 3 ml IH [id number] Albuterol/Ipratropium (Duoneb 3 Mg/0.5 Mg (3 Ml) Ud) 3 ml IH Q2H PRN PRN Reason: Shortness of Breath Apixaban (Eliquis) 2.5 mg PO BID [facility]; Protocol Last Admin: 05/11/18 19:09 Dose: 2.5 mg Furosemide (Lasix) 40 mg IVP BID [facility] Last Admin: 05/11/18 18:18 Dose: Not Given Meropenem (Merrem Iv 1 Gm Premix) 1 gm in 50 mls @ 100 mls/hr IVPB STAT JR; Protocol Last Admin: 05/11/18 15:00 Dose: 100 mls/hr Physical Exam - Constitutional Appears: Chronically Ill - Head Exam Head Exam: ATRAUMATIC, NORMOCEPHALIC - Eye Exam Eye Exam: EOMI - ENT Exam ENT Exam: Mucous Membranes Moist - Respiratory Exam Respiratory Exam: Rales (inferior lobes bilaterally) Additional comments: on BIPAP - Cardiovascular Exam Cardiovascular Exam: REGULAR RHYTHM - GI/Abdominal Exam GI & Abdominal Exam: Soft. absent: Distended, Guarding, Rebound, Tenderness Additional comments: colostomy bag in place with soft brown stool and gas in bag, ostomy pink patent and productive left sided mucocutaneous fistula pink and patent no surrounding tenderness or erythema Midline incision clean and intact with donita and mattress sutures in place, area near umbilical area of granulation tissue and serous fluid excretion, mild erythema over incision site - Extremities Exam Extremities exam: Negative for: calf tenderness, pedal edema - Neurological Exam Neurological exam: Alert (easily arousable but often closes eyes as if slightly drowsy), Oriented x3 - Psychiatric Exam Psychiatric exam: Normal Affect, Normal Mood - Skin Skin Exam: Intact, Warm Results - Vital Signs Recent Vital Signs: Last Vital Signs Temp 98 F 05/11/18 17:00 Pulse 85 05/11/18 16:12 Resp 19 05/11/18 16:12 BP 177/70 H 05/11/18 19:09 Pulse Ox 100 05/11/18 17:00 - Labs Result Diagrams: 05/11/18 19:35 05/11/18 13:45 Labs: Laboratory Results - last 24 hr 05/11/18 05/11/18 05/11/18 13:45 13:45 13:45 WBC 8.3 RBC 3.27 L Hgb 8.9 L Hct 30.3 L MCV 92.7 MCH 27.2 MCHC 29.4 L RDW 18.5 H Plt Count 379 MPV 9.6 Gran % 61.6 Lymph % (Auto) 27.8 [place] % (Auto) 7.3 H Eos % (Auto) 2.8 Baso % (Auto) 0.5 Gran # 5.09 Lymph # (Auto) 2.3 [place] # (Auto) 0.6 Eos # (Auto) 0.2 Baso # (Auto) 0.04 PT 15.0 H INR 1.30 APTT 20.4 L pCO2 pO2 92 H HCO3 ABG pH ABG Total CO2 ABG O2 Saturation ABG O2 Content ABG Base Excess ABG Hemoglobin ABG Carboxyhemoglobin POC ABG HHb (Measured) ABG Methemoglobin ABG O2 Capacity VBG pH 7.30 L VBG pCO2 60.0 VBG HCO3 29.5 H VBG Total CO2 31.3 H VBG O2 Sat (Calc) 98.7 H VBG Base Excess 1.6 VBG Potassium 5.1 Hgb O2 Saturation Sodium 142.0 Chloride 108.0 H Glucose 141 H Lactate 0.7 FiO2 21.0 Potassium Carbon Dioxide Anion Gap BUN Creatinine Est GFR ( Amer) Est GFR (Non-Af Amer) POC Glucose (mg/dL) Random Glucose Calcium Phosphorus Magnesium Total Bilirubin AST ALT Alkaline Phosphatase Troponin I NT-Pro-B Natriuret Pep Total Protein Albumin Globulin Albumin/Globulin Ratio Venous Blood Potassium 5.1 Urine Color Urine Appearance Urine pH Ur Specific [place] Urine Protein Urine Glucose (UA) Urine Ketones Urine Blood Urine Nitrate Urine Bilirubin Urine Urobilinogen Ur Leukocyte Esterase Urine RBC Urine WBC Ur Epithelial Cells Urine Bacteria Urine Other 05/11/18 05/11/18 05/11/18 13:45 14:40 15:39 WBC RBC Hgb Hct MCV MCH MCHC RDW Plt Count MPV Gran % Lymph % (Auto) [place] % (Auto) Eos % (Auto) Baso % (Auto) Gran # Lymph # (Auto) [place] # (Auto) Eos # (Auto) Baso # (Auto) PT INR APTT pCO2 pO2 HCO3 ABG pH ABG Total CO2 ABG O2 Saturation ABG O2 Content ABG Base Excess ABG Hemoglobin ABG Carboxyhemoglobin POC ABG HHb (Measured) ABG Methemoglobin ABG O2 Capacity VBG pH VBG pCO2 VBG HCO3 VBG Total CO2 VBG O2 Sat (Calc) VBG Base Excess VBG Potassium Hgb O2 Saturation Sodium 141 Chloride 107 Glucose Lactate FiO2 Potassium 5.1 H Carbon Dioxide 29 Anion Gap 10 BUN 50 H Creatinine 1.4 H Est GFR ( Amer) 46 Est GFR (Non-Af Amer) 38 POC Glucose (mg/dL) Random Glucose 139 H Calcium 8.5 Phosphorus 4.1 Magnesium 1.3 L Total Bilirubin 0.3 AST 38 H D ALT 25 Alkaline Phosphatase 157 H Troponin I 0.15 H* D NT-Pro-B Natriuret Pep 91289 H Total Protein 6.7 Albumin 2.7 L Globulin 4.0 Albumin/Globulin Ratio 0.7 L Venous Blood Potassium Urine Color Yellow Urine Appearance Slight-cloudy Urine pH 6.0 Ur Specific [place] >= 1.030 Urine Protein 100 H Urine Glucose (UA) Negative Urine Ketones Trace H Urine Blood Negative Urine Nitrate Negative Urine Bilirubin Negative Urine Urobilinogen 0.2 Ur Leukocyte Esterase Trace H Urine RBC 0 - 2 Urine WBC 2 - 5 Ur Epithelial Cells 0 - 2 Urine Bacteria Many Urine Other Uyeast 05/11/18 05/11/18 05/11/18 16:11 17:27 19:35 WBC 9.2 RBC 3.27 L Hgb 9.1 L Hct 30.3 L MCV 92.7 MCH 27.8 MCHC 30.0 L RDW 18.5 H Plt Count 376 MPV 9.5 Gran % 84.7 H Lymph % (Auto) 12.0 L [place] % (Auto) 1.8 Eos % (Auto) 0.8 L Baso % (Auto) 0.7 Gran # 7.80 H Lymph # (Auto) 1.1 L [place] # (Auto) 0.2 Eos # (Auto) 0.1 Baso # (Auto) 0.06 PT INR APTT pCO2 51 H pO2 86.0 HCO3 27.5 ABG pH 7.34 L ABG Total CO2 29.1 H ABG O2 Saturation 98.5 H ABG O2 Content 11.5 L ABG Base Excess 1.3 ABG Hemoglobin 8.5 L ABG Carboxyhemoglobin 2.9 H POC ABG HHb (Measured) 1.4 ABG Methemoglobin 0.9 ABG O2 Capacity 11.7 L VBG pH VBG pCO2 VBG HCO3 VBG Total CO2 VBG O2 Sat (Calc) VBG Base Excess VBG Potassium Hgb O2 Saturation 94.9 L Sodium Chloride Glucose Lactate FiO2 50.0 Potassium Carbon Dioxide Anion Gap BUN Creatinine Est GFR ( Amer) Est GFR (Non-Af Amer) POC Glucose (mg/dL) 112 H Random Glucose Calcium Phosphorus Magnesium Total Bilirubin AST ALT Alkaline Phosphatase Troponin I NT-Pro-B Natriuret Pep Total Protein Albumin Globulin Albumin/Globulin Ratio Venous Blood Potassium Urine Color Urine Appearance Urine pH Ur Specific [place] Urine Protein Urine Glucose (UA) Urine Ketones Urine Blood Urine Nitrate Urine Bilirubin Urine Urobilinogen Ur Leukocyte Esterase Urine RBC Urine WBC Ur Epithelial Cells Urine Bacteria Urine Other Assessment & Plan - Assessment and Plan (Free Text) Assessment: 62 yr old female s/p Plan: c/w ostomy care c/w wound care c/w abx per ID recs Continue to recommend mesh removal when stable, patient continuing to refuse further procedures Discussed with Dr. Mike Rizvi PGY 1 - Date & Time Date: 05/11/18
[2018-05-11] MEDS ORDERED: Simethicone 80 mg Chewtab PO PRN (20:43)
[2018-05-11 21:07] VITALS: BMI 55.0
[2018-05-11] MEDS ORDERED: Pneumococcal 23-Valent Vaccine IM ONE (21:08)
[2018-05-11] MEDS ORDERED: Influenza Vaccine 60 mcg/0.5 mL SYR (4YR UP) IM ONE (21:08)
[2018-05-11] MEDS ORDERED: MEROPENEM 500 MG in NS 500 MG/50 ML BAG IVPB SCH (22:00)
[2018-05-11] MEDS: Insulin Reg-LOW-Coverage SC SCH (22:59)
[2018-05-11] MEDS: Ergocalciferol 50,000 Intl Units Cap PO SCH (23:12)
[2018-05-11] MEDS: Insulin Detemir 100 units/ml Vial (Levemir) SC SCH (23:12)
[2018-05-11] MEDS: Cefepime 1gm in NS 100ml 1 GM/100 ML BAG IVPB SCH (23:14)
[2018-05-11] MEDS: Micafungin 100 MG in Sodium Chloride 0.9% 100 ML IV SCH (23:31)
[2018-05-12] MEDS: Albuterol-Ipratrop 3 mg / 0.5 (3 ml) UD IH SCH ×4 (02:22→20:31)
--- NOTE | 2018-05-12 05:42 | CON ---
DATE: 05/11/2018 LOCATION: The patient was seen in the emergency room earlier today. CHIEF COMPLAINT: Weakness and shortness of the breath times several days. HISTORY OF PRESENT ILLNESS: This is a 62-year-old female who was transferred back to [facility] from the group home with a history of congestive heart failure, coronary artery disease, hypertension, diabetes, hyperlipidemia, chronic obstructive lung disease, and rectal cancer who had abdominal surgery in the past at and ventral hernia surgery, also recently had a colostomy and small bowel obstruction and then surgery and was found to have abdominal wall cellulitis and abscess, which was drained. It was recommended for her the mesh to be removed, she refused. She returns now with shortness of breath, low grade fevers, and mild abdominal discomfort. REVIEW OF SYSTEMS: Reveals a fourteen-point review of systems was performed. There has been low grade fever. No chills. No chest pain. There is shortness of breath, minimal cough with mild abdominal discomfort. No nausea or vomiting. No diarrhea or constipation. No dysuria or frequency. PAST MEDICAL HISTORY: Significant for super morbid obesity with BMI of 50, small bowel obstruction, congestive heart failure, coronary artery disease, rectal cancer, renal disease, hyperlipidemia, GI bleed, GERD, sleep apnea, chronic obstructive lung disease, pulmonary emboli, patient had VRE and ESBL urinary tract infection, and the patient also has anxiety. Also had abdominal wall cellulitis and abscess with mesh involvement, which grew Celsa famata and Gram-negative hong. PAST SURGICAL HISTORY: Significant for IVC filter placement, ventral hernia, incarcerated hernia with mesh, colostomy, and appendectomy. ALLERGIES: THE PATIENT HAS NO KNOWN ALLERGIES. MEDICATIONS AT HOME: Reviewed. PHYSICAL EXAMINATION: GENERAL: The patient is seen in bed, appearing weak, and washed out. VITAL SIGNS: Temperature of 98, blood pressure is 170/70, respiratory rate of 19, and heart rate is 95. HEENT: Unremarkable. NECK: Supple. LUNGS: Have decreased breath sounds. HEART: Normal S1 and S2. ABDOMEN: Soft and nontender. Wound is noted, minimal discharge. LABORATORY DATA: Reveals the patient's white count of 9.2, hemoglobin of 9, and platelet of 376. Coagulation is noted. Chemistries reveals a BUN of 50, creatinine of 1.4 with a GFR of 38 with a troponin of 0.15 and the BNP is 25,900. Urinalysis reveals the patient has 0-2 wbc's with the yeast in the urine. Chest x-ray is reported to be negative. CAT scan of the abdomen is negative. ASSESSMENT AND PLAN: This is a 62-year-old female with history of rectal cancer, hypertension, diabetes, chronic obstructive lung disease, congestive heart failure, coronary artery disease, gastrointestinal bleed, gastroesophageal reflux disease, super morbid obesity with body mass index of 50, small bowel obstruction, history of abdominal wall cellulitis and abscess with the mesh infection after ventral hernia, incarcerated hernia and colostomy, appendectomy, has inferior vena cava filter with a history of pulmonary emboli , abdominal wound and mesh involvement, confusion, acute diastolic congestive heart failure on top of chronic congestive heart failure, on vancomycin and meropenem. We will start the patient one dose of vancomycin adjusted for renal disease, meropenem also adjusted for renal disease and Mycamine. The patient did grew Celsa and Gram-negative hong from the wound culture infected mesh. The Gram-negative hong was later reported to be Pseudomonas aeruginosa, intermediate to meropenem, sensitive to Zosyn, sensitive to Cipro and sensitive to cefepime. We will treat the patient with dose of vancomycin, Mycamine and cefepime because of the resistance pattern. Mycamine only removal of the mesh. We will follow with you. Lawrence Cheek MD
[2018-05-12] MEDS: Insulin Reg-LOW-Coverage SC SCH ×4 (07:30→21:41)
[2018-05-12] MEDS ORDERED: Arformoterol 15 mcg/2 ml Inh Sol IH SCH (08:00)
[2018-05-12] MEDS: Arformoterol 15 mcg/2 ml Inh Sol IH SCH ×2 (08:01→20:31)
[2018-05-12] MEDS: Budesonide 0.5 mg/2 ml Inhal Susp UD IH SCH ×2 (08:01→20:30)
[2018-05-12 08:10] LABS: ALB/GLOB RATIO 0.6 (1.1-1.8); ALBUMIN 2.4 g/dL (3.0-4.8); CALCIUM 8.2 mg/dL (8.4-10.5)
[2018-05-12] MEDS: Pantoprazole 20 mg EC Tab PO SCH (08:31)
[2018-05-12] MEDS: Multivitamin Vitamin B Complex (Nephro-Vite) Tab PO SCH (08:31)
[2018-05-12] MEDS ORDERED: Vancomycin 1.5 GM in Sodium Chloride 0.9% 500 ML IVPB ONE (09:58)
[2018-05-12] MEDS ORDERED: Magnesium Sulfate 1 gm in D5W 1 GM/100 ML BAG IVPB ONE (10:06)
--- NOTE | 2018-05-12 10:06 | CP.PCM.CON ---
History of Present Illness - History of Present Illness History of Present Illness: Nephrology Consultation Note: Assessment: ARF/CKD SBO s/p ex lap ? MESH infection Acute Kidney Injury (N17.9) likely pre-renal state left adrenal adenoma, Rt renal hyperdense cyst chronic hypercapnic respi failure Diabetic chronic Kidney Disease (E11.22) Hypertensive Chronic Kidney Disease (I12.9) Chronic Kidney Disease (N18.3) Stage 3 with 2.4 gm proteinuria (R80.9) likely due to DM/HTN/Obesity Anemia Vit D def morbid obesity, CAD s/p stent, COPD/SUMMER, rectal ca s/p colostomy hypomag Plan No acute need for renal replacement therapy at this time. SHELBI is stable and improved from last admission bp is improving w/ medications f/u surgery and id transfuse per primary team will order iv mag Adrenal adenoma work up with plasma renin/aldosterone, plasma metanephrine NEGATIVE. outpt 1 mg dexa suppression test repeat renal sono in 6 months to assess her Rt renal cyst Chief Complaint;AMS Reason for consult: Acute Kidney Injury, CKD 3 HPI: Pt is a 62 F with hx of diabetes Mellitus (15 years), hypertension (years), CKD 3 with baseline cr 1.2-1.3 recently admitted after complicated abdominal surgery that represents w/ abdominal pain. Was recommended to get mesh removed last admission but refusing and still refusing per surgical service. She does not know why she is in the hospital. She denies n/v. She endorses reduced po intake. ROS: a full detailed ROS is negative except as in my hpi Physical Examination: General Appearance: comfortable,morbidly obese. Vitals reviewed and noted as below Head; Atraumatic, normocephalic ENT: dry mucosa EYES: Pupils are equal, round and reactive to light accommodation. Eye muscles and extraocular movement intact. Sclera is anicteric. Neck; supple no lymphadenopathy, no thyromegaly or bruit Lungs: Normal respiratory rate/effort. Breath sounds bilateral equal, diminished at bases but overall limited exam due to her obesity Heart: normal rate. s1s2 normal. No rub or gallop. Extremities: 1+ edema, non pitting lymphedema as well. No varicose veins Neurological: Patient is much more awake follwo commands Skin: Warm and dry. Normal turgor. No rash. Palpitation: Normal elasticity for age Abdomen: Abdomen is + colostomy Psych: nml affect MSK: no joint tenderness or swelling. Digits and nails normal, no deformity : kidney or bladder not palpable Labs/imaging reviewed. Past medical history, past surgical history, family history, social history, allergy reviewed and noted as below Family hx: no hx of CKD. Rest non-contributory Past Patient History - Infectious Disease Hx of Infectious Diseases: None - Tetanus Immunizations Tetanus Immunization: Unknown - Past Social History Smoking Status: Never Smoked - CARDIAC Hx Hypertension: Yes - PULMONARY Hx Chronic Obstructive Pulmonary Disease (COPD): Yes - NEUROLOGICAL Hx Neurological Disorder: Yes Hx Dizziness: Yes - HEENT Hx Macular Degeneration: No - RENAL Hx Renal Failure: Yes - ENDOCRINE/METABOLIC Hx Diabetes Mellitus Type 2: Yes - HEMATOLOGICAL/ONCOLOGICAL Hx Blood Disorders: Yes Hx Anemia: Yes - INTEGUMENTARY Hx Dermatological Problems: No - MUSCULOSKELETAL/RHEUMATOLOGICAL Hx Falls: No - GASTROINTESTINAL Hx Gastrointestinal Disorders: Yes (RECTAL CA WITH COLOSTOMY,GI BLEED) Hx Colostomy: Yes Hx Gastroesophageal Reflux: Yes - GENITOURINARY/GYNECOLOGICAL Hx Genitourinary Disorders: Yes (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,UTI) - PSYCHIATRIC Hx Psychophysiologic Disorder: Yes Hx Anxiety: Yes Hx Substance Use: No - SURGICAL HISTORY Hx Appendectomy: Yes Hx Coronary Stent: Yes Hx Vascular Access Device: Yes Other/Comment: colostomy - ANESTHESIA Hx Anesthesia: Yes Hx Anesthesia Reactions: No Hx Malignant Hyperthermia: No Meds Allergies/Adverse Reactions: Allergies Allergy/AdvReac Type Severity Reaction Status Date / Time No Known Allergies Allergy Verified 05/11/18 17:26 - Medications Medications: Current Medications Acetaminophen (Tylenol 325mg Tab) 650 mg PO Q4H PRN PRN Reason: Pain, Mild (1-3) Albuterol/Ipratropium (Duoneb 3 Mg/0.5 Mg (3 Ml) Ud) 3 ml IH [id number] Last Admin: 05/12/18 08:01 Dose: 3 ml Albuterol/Ipratropium (Duoneb 3 Mg/0.5 Mg (3 Ml) Ud) 3 ml IH Q2H PRN PRN Reason: Shortness of Breath Amlodipine Besylate (Norvasc) 10 mg PO DAILY JR Apixaban (Eliquis) 2.5 mg PO BID [facility]; Protocol Last Admin: 05/11/18 19:09 Dose: 2.5 mg Arformoterol Tartrate (Brovana) 15 mcg IH [id number] [facility] Last Admin: 05/12/18 08:01 Dose: 15 mcg Armodafinil (Nuvigil 150 Mg Tab) 150 mg PO DAILY [facility] Aspirin (Ecotrin) 81 mg PO DAILY [facility] Atorvastatin Calcium (Lipitor) 20 mg PO HS [facility] Last Admin: 05/11/18 23:11 Dose: 20 mg Budesonide (Pulmicort Respules) 0.5 mg IH [id number] [facility] Last Admin: 05/12/18 08:01 Dose: 0.5 mg Clonidine HCl (Catapres-Tts3 0.3 Mg/24 Hr) 1 patch TD Q7D@1000 JR Docusate Sodium (Colace) 100 mg PO TID [facility] Ergocalciferol (Drisdol 50,000 Intl Units Cap) 1 cap PO Q7D [facility] Last Admin: 05/11/18 23:12 Dose: 1 cap Ferrous Gluconate (Fergon) 324 mg PO DAILY [facility] Furosemide (Lasix) 40 mg IVP BID [facility] Last Admin: 05/11/18 18:18 Dose: Not Given Furosemide (Lasix) 40 mg PO DAILY [facility] Hydralazine HCl (Apresoline) 100 mg PO TID [facility] Micafungin Sodium 100 mg/ (Sodium Chloride) 100 mls @ 100 mls/hr IV DAILY [facility]; Protocol Stop: 05/20/18 22:00 Last Admin: 05/11/18 23:31 Dose: 100 mls/hr Cefepime HCl (Maxipime 1gm) 1 gm in 100 mls @ 100 mls/hr IVPB Q12 [facility]; Protocol Stop: 05/20/18 22:16 Last Admin: 05/11/18 23:14 Dose: 100 mls/hr Vancomycin HCl 1.5 gm/ Sodium (Chloride) 500 mls @ 167 mls/hr IVPB ONCE ONE; Protocol Stop: 05/12/18 12:57 Insulin Detemir (Levemir) 20 unit SC [facility] Last Admin: 05/11/18 23:12 Dose: 20 units Insulin Human Regular (Humulin R Low) 0 units SC ACHS [facility]; Protocol Last Admin: 05/12/18 07:30 Dose: Not Given Isosorbide Mononitrate (Imdur) 60 mg PO DAILY [facility] Labetalol HCl (Trandate) 300 mg PO Q8 [facility] Last Admin: 05/12/18 05:57 Dose: 300 mg Lorazepam (Ativan) 0.5 mg PO Q8H PRN; Protocol PRN Reason: Anxiety Metoclopramide HCl (Reglan) 5 mg PO ACHS [facility] Last Admin: 05/12/18 08:31 Dose: 5 mg Metronidazole (Flagyl) 500 mg PO Q8 [facility]; Protocol Stop: 05/21/18 14:01 Nifedipine (Procardia Xl) 60 mg PO QPM [facility] Ondansetron HCl (Zofran Inj) 4 mg IVP Q4H PRN PRN Reason: Nausea/Vomiting Pantoprazole Sodium (Protonix Ec Tab) 20 mg PO ACB [facility] Last Admin: 05/12/18 08:31 Dose: 20 mg Simethicone (Mylicon Chew Tab) 80 mg PO PCHS PRN PRN Reason: GI distress Vitamin B Complex/Vit C/Folic Acid (Nephro-[place]) 1 tab PO 0800 [facility] Last Admin: 05/12/18 08:31 Dose: 1 tab Results - Vital Signs Recent Vital Signs: Last Vital Signs Temp 99.8 F H 05/12/18 06:00 Pulse 84 05/12/18 06:00 Resp 20 05/12/18 06:00 BP 146/53 L 05/12/18 06:00 Pulse Ox 99 05/12/18 06:00 - Labs Result Diagrams: 05/11/18 19:35 05/12/18 06:00 Labs: Laboratory Results - last 24 hr 05/11/18 05/11/18 05/11/18 13:30 13:45 13:45 WBC 8.3 RBC 3.27 L Hgb 8.9 L Hct 30.3 L MCV 92.7 MCH 27.2 MCHC 29.4 L RDW 18.5 H Plt Count 379 MPV 9.6 Gran % 61.6 Lymph % (Auto) 27.8 [place] % (Auto) 7.3 H Eos % (Auto) 2.8 Baso % (Auto) 0.5 Gran # 5.09 Lymph # (Auto) 2.3 [place] # (Auto) 0.6 Eos # (Auto) 0.2 Baso # (Auto) 0.04 PT 15.0 H INR 1.30 APTT 20.4 L pCO2 pO2 HCO3 ABG pH ABG Total CO2 ABG O2 Saturation ABG O2 Content ABG Base Excess ABG Hemoglobin ABG Carboxyhemoglobin POC ABG HHb (Measured) ABG Methemoglobin ABG O2 Capacity VBG pH VBG pCO2 VBG HCO3 VBG Total CO2 VBG O2 Sat (Calc) VBG Base Excess VBG Potassium Hgb O2 Saturation Sodium Chloride Glucose Lactate FiO2 Potassium Carbon Dioxide Anion Gap BUN Creatinine Est GFR ( Amer) Est GFR (Non-Af Amer) POC Glucose (mg/dL) Random Glucose Calcium Phosphorus Magnesium Total Bilirubin AST ALT Alkaline Phosphatase Troponin I NT-Pro-B Natriuret Pep Total Protein Albumin Globulin Albumin/Globulin Ratio Procalcitonin 0.47 Venous Blood Potassium Urine Color Urine Appearance Urine pH Ur Specific [place] Urine Protein Urine Glucose (UA) Urine Ketones Urine Blood Urine Nitrate Urine Bilirubin Urine Urobilinogen Ur Leukocyte Esterase Urine RBC Urine WBC Ur Epithelial Cells Urine Bacteria Urine Other 05/11/18 05/11/18 05/11/18 13:45 13:45 14:40 WBC RBC Hgb Hct MCV MCH MCHC RDW Plt Count MPV Gran % Lymph % (Auto) [place] % (Auto) Eos % (Auto) Baso % (Auto) Gran # Lymph # (Auto) [place] # (Auto) Eos # (Auto) Baso # (Auto) PT INR APTT pCO2 pO2 92 H HCO3 ABG pH ABG Total CO2 ABG O2 Saturation ABG O2 Content ABG Base Excess ABG Hemoglobin ABG Carboxyhemoglobin POC ABG HHb (Measured) ABG Methemoglobin ABG O2 Capacity VBG pH 7.30 L VBG pCO2 60.0 VBG HCO3 29.5 H VBG Total CO2 31.3 H VBG O2 Sat (Calc) 98.7 H VBG Base Excess 1.6 VBG Potassium 5.1 Hgb O2 Saturation Sodium 142.0 141 Chloride 108.0 H 107 Glucose 141 H Lactate 0.7 FiO2 21.0 Potassium 5.1 H Carbon Dioxide 29 Anion Gap 10 BUN 50 H Creatinine 1.4 H Est GFR ( Amer) 46 Est GFR (Non-Af Amer) 38 POC Glucose (mg/dL) Random Glucose 139 H Calcium 8.5 Phosphorus 4.1 Magnesium 1.3 L Total Bilirubin 0.3 AST 38 H D ALT 25 Alkaline Phosphatase 157 H Troponin I 0.15 H* D NT-Pro-B Natriuret Pep 11316 H Total Protein 6.7 Albumin 2.7 L Globulin 4.0 Albumin/Globulin Ratio 0.7 L Procalcitonin Venous Blood Potassium 5.1 Urine Color Urine Appearance Urine pH Ur Specific [place] Urine Protein Urine Glucose (UA) Urine Ketones Urine Blood Urine Nitrate Urine Bilirubin Urine Urobilinogen Ur Leukocyte Esterase Urine RBC Urine WBC Ur Epithelial Cells Urine Bacteria Urine Other 05/11/18 05/11/18 05/11/18 15:39 16:11 17:27 WBC RBC Hgb Hct MCV MCH MCHC RDW Plt Count MPV Gran % Lymph % (Auto) [place] % (Auto) Eos % (Auto) Baso % (Auto) Gran # Lymph # (Auto) [place] # (Auto) Eos # (Auto) Baso # (Auto) PT INR APTT pCO2 51 H pO2 86.0 HCO3 27.5 ABG pH 7.34 L ABG Total CO2 29.1 H ABG O2 Saturation 98.5 H ABG O2 Content 11.5 L ABG Base Excess 1.3 ABG Hemoglobin 8.5 L ABG Carboxyhemoglobin 2.9 H POC ABG HHb (Measured) 1.4 ABG Methemoglobin 0.9 ABG O2 Capacity 11.7 L VBG pH VBG pCO2 VBG HCO3 VBG Total CO2 VBG O2 Sat (Calc) VBG Base Excess VBG Potassium Hgb O2 Saturation 94.9 L Sodium Chloride Glucose Lactate FiO2 50.0 Potassium Carbon Dioxide Anion Gap BUN Creatinine Est GFR ( Amer) Est GFR (Non-Af Amer) POC Glucose (mg/dL) 112 H Random Glucose Calcium Phosphorus Magnesium Total Bilirubin AST ALT Alkaline Phosphatase Troponin I NT-Pro-B Natriuret Pep Total Protein Albumin Globulin Albumin/Globulin Ratio Procalcitonin Venous Blood Potassium Urine Color Yellow Urine Appearance Slight-cloudy Urine pH 6.0 Ur Specific [place] >= 1.030 Urine Protein 100 H Urine Glucose (UA) Negative Urine Ketones Trace H Urine Blood Negative Urine Nitrate Negative Urine Bilirubin Negative Urine Urobilinogen 0.2 Ur Leukocyte Esterase Trace H Urine RBC 0 - 2 Urine WBC 2 - 5 Ur Epithelial Cells 0 - 2 Urine Bacteria Many Urine Other Uyeast 05/11/18 05/11/18 05/12/18 19:35 22:57 02:13 WBC 9.2 RBC 3.27 L Hgb 9.1 L Hct 30.3 L MCV 92.7 MCH 27.8 MCHC 30.0 L RDW 18.5 H Plt Count 376 MPV 9.5 Gran % 84.7 H Lymph % (Auto) 12.[address] % (Auto) 1.8 Eos % (Auto) 0.8 L Baso % (Auto) 0.7 Gran # 7.80 H Lymph # (Auto) 1.[address] # (Auto) 0.2 Eos # (Auto) 0.1 Baso # (Auto) 0.06 PT INR APTT pCO2 pO2 HCO3 ABG pH ABG Total CO2 ABG O2 Saturation ABG O2 Content ABG Base Excess ABG Hemoglobin ABG Carboxyhemoglobin POC ABG HHb (Measured) ABG Methemoglobin ABG O2 Capacity VBG pH VBG pCO2 VBG HCO3 VBG Total CO2 VBG O2 Sat (Calc) VBG Base Excess VBG Potassium Hgb O2 Saturation Sodium Chloride Glucose Lactate FiO2 Potassium Carbon Dioxide Anion Gap BUN Creatinine Est GFR ( Amer) Est GFR (Non-Af Amer) POC Glucose (mg/dL) 164 H 143 H Random Glucose Calcium Phosphorus Magnesium Total Bilirubin AST ALT Alkaline Phosphatase Troponin I NT-Pro-B Natriuret Pep Total Protein Albumin Globulin Albumin/Globulin Ratio Procalcitonin Venous Blood Potassium Urine Color Urine Appearance Urine pH Ur Specific [place] Urine Protein Urine Glucose (UA) Urine Ketones Urine Blood Urine Nitrate Urine Bilirubin Urine Urobilinogen Ur Leukocyte Esterase Urine RBC Urine WBC Ur Epithelial Cells Urine Bacteria Urine Other 05/12/18 05/12/18 06:00 07:42 WBC RBC Hgb Hct MCV MCH MCHC RDW Plt Count MPV Gran % Lymph % (Auto) [place] % (Auto) Eos % (Auto) Baso % (Auto) Gran # Lymph # (Auto) [place] # (Auto) Eos # (Auto) Baso # (Auto) PT INR APTT pCO2 pO2 HCO3 ABG pH ABG Total CO2 ABG O2 Saturation ABG O2 Content ABG Base Excess ABG Hemoglobin ABG Carboxyhemoglobin POC ABG HHb (Measured) ABG Methemoglobin ABG O2 Capacity VBG pH VBG pCO2 VBG HCO3 VBG Total CO2 VBG O2 Sat (Calc) VBG Base Excess VBG Potassium Hgb O2 Saturation Sodium 141 Chloride 109 H Glucose Lactate FiO2 Potassium 5.0 Carbon Dioxide 30 Anion Gap 8 L BUN 53 H Creatinine 1.4 H Est GFR ( Amer) 46 Est GFR (Non-Af Amer) 38 POC Glucose (mg/dL) 69 Random Glucose 83 Calcium 8.2 L Phosphorus 4.2 Magnesium 1.3 L Total Bilirubin 0.3 AST 56 H D ALT 26 Alkaline Phosphatase 128 H Troponin I NT-Pro-B Natriuret Pep Total Protein 6.2 Albumin 2.4 L Globulin 3.8 Albumin/Globulin Ratio 0.6 L Procalcitonin Venous Blood Potassium Urine Color Urine Appearance Urine pH Ur Specific [place] Urine Protein Urine Glucose (UA) Urine Ketones Urine Blood Urine Nitrate Urine Bilirubin Urine Urobilinogen Ur Leukocyte Esterase Urine RBC Urine WBC Ur Epithelial Cells Urine Bacteria Urine Other
[2018-05-12 11:15] LABS: BASO # 0.03 K/mm3 (0.0-2.0); BASO % 0.4 % (0.0-3.0); EOS % 0.6 % (1.5-5.0); GRAN # 4.05 (1.4-6.5); GRAN % 58.6 % (50.0-68.0); HEMOGLOBIN 7.9 g/dL (12.0-16.0); LYMPH % 28.4 % (22.0-35.0); MEAN CELL VOLUME 92.3 fl (80.0-105.0); MEAN CORPUSCULAR HEMOGLOBIN 27.7 pg (25.0-35.0); MEAN PLATELET VOLUME 9.6 fl (7.0-11.0); MONO # 0.8 (0.1-0.6); RBC 2.85 10^6/uL (3.5-6.1); RED CELL DISTRIBUTION WIDTH 18.4 % (11.5-14.5); WHITE BLOOD COUNT 6.9 10^3/uL (4.5-11.0)
[2018-05-12] MEDS: Micafungin 100 MG in Sodium Chloride 0.9% 100 ML IV SCH (11:38)
[2018-05-12] MEDS: Cefepime 1gm in NS 100ml 1 GM/100 ML BAG IVPB SCH ×2 (11:39→21:16)
--- NOTE | 2018-05-12 12:18 | CP.PCM.CON ---
History of Present Illness - History of Present Illness History of Present Illness: Awake, no distress Reason for consultation: Cardiac evaluation of history of congestive heart failure, transferred from custodial due to lethargy Brief history of present illness: A 62 year old morbidly obese female who got transferred to [facility] from custodial due to altered mental status. Patient is known to service from previous multiple admissions. History of coronary artery disease with stent of circumflex, hypertension,hyperlipidemia,diabetes,sleep apnea,COPD, congestive heart failure, DVT/PE. History of rectal cancer with radiation and chemotherapy, bowel resection in the past with colostomy. She was admitted to [facility] due to small bowel obstruction and on 04/16/18 she had explor- lap and lysis of adhesions and ventral hernia repair with revision of colostomy (Dr. Mckeon). Seen and examined by me and Dr. Hernandez Review of Systems - Review of Systems All systems: reviewed and no additional remarkable complaints except Review of Systems: as per HPI Past Patient History - Infectious Disease Hx of Infectious Diseases: None - Tetanus Immunizations Tetanus Immunization: Unknown - Past Social History Smoking Status: Never Smoked - CARDIAC Hx Hypertension: Yes - PULMONARY Hx Chronic Obstructive Pulmonary Disease (COPD): Yes - NEUROLOGICAL Hx Neurological Disorder: Yes Hx Dizziness: Yes - HEENT Hx Macular Degeneration: No - RENAL Hx Renal Failure: Yes - ENDOCRINE/METABOLIC Hx Diabetes Mellitus Type 2: Yes - HEMATOLOGICAL/ONCOLOGICAL Hx Blood Disorders: Yes Hx Anemia: Yes - INTEGUMENTARY Hx Dermatological Problems: No - MUSCULOSKELETAL/RHEUMATOLOGICAL Hx Falls: No - GASTROINTESTINAL Hx Gastrointestinal Disorders: Yes (RECTAL CA WITH COLOSTOMY,GI BLEED) Hx Colostomy: Yes Hx Gastroesophageal Reflux: Yes - GENITOURINARY/GYNECOLOGICAL Hx Genitourinary Disorders: Yes (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,UTI) - PSYCHIATRIC Hx Psychophysiologic Disorder: Yes Hx Anxiety: Yes Hx Substance Use: No - SURGICAL HISTORY Hx Appendectomy: Yes Hx Coronary Stent: Yes Hx Vascular Access Device: Yes Other/Comment: colostomy - ANESTHESIA Hx Anesthesia: Yes Hx Anesthesia Reactions: No Hx Malignant Hyperthermia: No Meds Allergies/Adverse Reactions: Allergies Allergy/AdvReac Type Severity Reaction Status Date / Time No Known Allergies Allergy Verified 05/11/18 17:26 - Medications Medications: Current Medications Acetaminophen (Tylenol 325mg Tab) 650 mg PO Q4H PRN PRN Reason: Pain, Mild (1-3) Albuterol/Ipratropium (Duoneb 3 Mg/0.5 Mg (3 Ml) Ud) 3 ml IH [id number] [facility] Last Admin: 05/12/18 08:01 Dose: 3 ml Albuterol/Ipratropium (Duoneb 3 Mg/0.5 Mg (3 Ml) Ud) 3 ml IH Q2H PRN PRN Reason: Shortness of Breath Amlodipine Besylate (Norvasc) 10 mg PO DAILY [facility] Last Admin: 05/12/18 10:38 Dose: 10 mg Apixaban (Eliquis) 2.5 mg PO BID [facility]; Protocol Last Admin: 05/12/18 10:38 Dose: 2.5 mg Arformoterol Tartrate (Brovana) 15 mcg IH [id number] [facility] Last Admin: 05/12/18 08:01 Dose: 15 mcg Armodafinil (Nuvigil 150 Mg Tab) 150 mg PO DAILY [facility] Last Admin: 05/12/18 10:38 Dose: 150 mg Aspirin (Ecotrin) 81 mg PO DAILY [facility] Last Admin: 05/12/18 10:37 Dose: 81 mg Atorvastatin Calcium (Lipitor) 20 mg PO HS [facility] Last Admin: 05/11/18 23:11 Dose: 20 mg Budesonide (Pulmicort Respules) 0.5 mg IH [id number] [facility] Last Admin: 05/12/18 08:01 Dose: 0.5 mg Clonidine HCl (Catapres-Tts3 0.3 Mg/24 Hr) 1 patch TD Q7D@1000 [facility] Docusate Sodium (Colace) 100 mg PO TID [facility] Last Admin: 05/12/18 10:37 Dose: 100 mg Ergocalciferol (Drisdol 50,000 Intl Units Cap) 1 cap PO Q7D [facility] Last Admin: 05/11/18 23:12 Dose: 1 cap Ferrous Gluconate (Fergon) 324 mg PO DAILY [facility] Last Admin: 05/12/18 10:38 Dose: 324 mg Furosemide (Lasix) 40 mg IVP BID [facility] Last Admin: 05/12/18 10:38 Dose: 40 mg Furosemide (Lasix) 40 mg PO DAILY [facility] Last Admin: 05/12/18 10:39 Dose: Not Given Hydralazine HCl (Apresoline) 100 mg PO TID [facility] Last Admin: 12/09/18 10:37 Dose: 100 mg Micafungin Sodium 100 mg/ (Sodium Chloride) 100 mls @ 100 mls/hr IV DAILY [facility]; Protocol Stop: 05/20/18 22:00 Last Admin: 05/12/18 11:38 Dose: 100 mls/hr Cefepime HCl (Maxipime 1gm) 1 gm in 100 mls @ 100 mls/hr IVPB Q12 [facility]; Protocol Stop: 05/20/18 22:16 Last Admin: 05/12/18 11:39 Dose: 100 mls/hr Vancomycin HCl 1.5 gm/ Sodium (Chloride) 500 mls @ 167 mls/hr IVPB ONCE ONE; Protocol Stop: 05/12/18 12:57 Insulin Detemir (Levemir) 20 unit SC [facility] Last Admin: 05/11/18 23:12 Dose: 20 units Insulin Human Regular (Humulin R Low) 0 units SC [facility]; Protocol Last Admin: 05/12/18 07:30 Dose: Not Given Isosorbide Mononitrate (Imdur) 60 mg PO DAILY [facility] Last Admin: 05/12/18 10:38 Dose: 60 mg Labetalol HCl (Trandate) 300 mg PO Q8 [facility] Last Admin: 05/12/18 05:57 Dose: 300 mg Lorazepam (Ativan) 0.5 mg PO Q8H PRN; Protocol PRN Reason: Anxiety Metoclopramide HCl (Reglan) 5 mg PO [facility] Last Admin: 05/12/18 08:31 Dose: 5 mg Metronidazole (Flagyl) 500 mg PO Q8 [facility]; Protocol Stop: 05/21/18 14:01 Nifedipine (Procardia Xl) 60 mg PO QPM [facility] Ondansetron HCl (Zofran Inj) 4 mg IVP Q4H PRN PRN Reason: Nausea/Vomiting Pantoprazole Sodium (Protonix Ec Tab) 20 mg PO ACB [facility] Last Admin: 05/12/18 08:31 Dose: 20 mg Simethicone (Mylicon Chew Tab) 80 mg PO PCHS PRN PRN Reason: GI distress Vitamin B Complex/Vit C/Folic Acid (Nephro-[place]) 1 tab PO 0800 [facility] Last Admin: 05/12/18 08:31 Dose: 1 tab Physical Exam - Constitutional Appears: Non-toxic, No Acute Distress - ENT Exam ENT Exam: Mucous Membranes Moist - Respiratory Exam Respiratory Exam: Decreased Breath Sounds, NORMAL BREATHING PATTERN - Cardiovascular Exam Cardiovascular Exam: REGULAR RHYTHM, +S1, +S2 Additional comments: Telemetry NSR 60-70's right chest port - GI/Abdominal Exam GI & Abdominal Exam: Normal Bowel Sounds, Soft Additional comments: colostomy - Exam Additional comments: linares catheter - Neurological Exam Neurological exam: Alert, Oriented x3 - Psychiatric Exam Psychiatric exam: Normal Affect, Normal Mood - Skin Skin Exam: Dry, Normal Color, Warm Results - Vital Signs Recent Vital Signs: Last Vital Signs Temp 99.8 F H 05/12/18 06:00 Pulse 84 05/12/18 06:00 Resp 20 05/12/18 06:00 BP 148/56 L 05/12/18 10:38 Pulse Ox 99 05/12/18 06:00 - Labs Result Diagrams: 05/12/18 11:05 05/12/18 06:00 Labs: Laboratory Results - last 24 hr 05/11/18 05/11/18 05/11/18 13:30 13:45 13:45 WBC 8.3 RBC 3.27 L Hgb 8.9 L Hct 30.3 L MCV 92.7 MCH 27.2 MCHC 29.4 L RDW 18.5 H Plt Count 379 MPV 9.6 Gran % 61.6 Lymph % (Auto) 27.8 [place] % (Auto) 7.3 H Eos % (Auto) 2.8 Baso % (Auto) 0.5 Gran # 5.09 Lymph # (Auto) 2.3 [place] # (Auto) 0.6 Eos # (Auto) 0.2 Baso # (Auto) 0.04 PT 15.0 H INR 1.30 APTT 20.4 L pCO2 pO2 HCO3 ABG pH ABG Total CO2 ABG O2 Saturation ABG O2 Content ABG Base Excess ABG Hemoglobin ABG Carboxyhemoglobin POC ABG HHb (Measured) ABG Methemoglobin ABG O2 Capacity VBG pH VBG pCO2 VBG HCO3 VBG Total CO2 VBG O2 Sat (Calc) VBG Base Excess VBG Potassium Hgb O2 Saturation Sodium Chloride Glucose Lactate FiO2 Potassium Carbon Dioxide Anion Gap BUN Creatinine Est GFR ( Amer) Est GFR (Non-Af Amer) POC Glucose (mg/dL) Random Glucose Calcium Phosphorus Magnesium Total Bilirubin AST ALT Alkaline Phosphatase Troponin I NT-Pro-B Natriuret Pep Total Protein Albumin Globulin Albumin/Globulin Ratio Procalcitonin 0.47 Venous Blood Potassium Urine Color Urine Appearance Urine pH Ur Specific [place] Urine Protein Urine Glucose (UA) Urine Ketones Urine Blood Urine Nitrate Urine Bilirubin Urine Urobilinogen Ur Leukocyte Esterase Urine RBC Urine WBC Ur Epithelial Cells Urine Bacteria Urine Other 05/11/18 05/11/18 05/11/18 13:45 13:45 14:40 WBC RBC Hgb Hct MCV MCH MCHC RDW Plt Count MPV Gran % Lymph % (Auto) [place] % (Auto) Eos % (Auto) Baso % (Auto) Gran # Lymph # (Auto) [place] # (Auto) Eos # (Auto) Baso # (Auto) PT INR APTT pCO2 pO2 92 H HCO3 ABG pH ABG Total CO2 ABG O2 Saturation ABG O2 Content ABG Base Excess ABG Hemoglobin ABG Carboxyhemoglobin POC ABG HHb (Measured) ABG Methemoglobin ABG O2 Capacity VBG pH 7.30 L VBG pCO2 60.0 VBG HCO3 29.5 H VBG Total CO2 31.3 H VBG O2 Sat (Calc) 98.7 H VBG Base Excess 1.6 VBG Potassium 5.1 Hgb O2 Saturation Sodium 142.0 141 Chloride 108.0 H 107 Glucose 141 H Lactate 0.7 FiO2 21.0 Potassium 5.1 H Carbon Dioxide 29 Anion Gap 10 BUN 50 H Creatinine 1.4 H Est GFR ( Amer) 46 Est GFR (Non-Af Amer) 38 POC Glucose (mg/dL) Random Glucose 139 H Calcium 8.5 Phosphorus 4.1 Magnesium 1.3 L Total Bilirubin 0.3 AST 38 H D ALT 25 Alkaline Phosphatase 157 H Troponin I 0.15 H* D NT-Pro-B Natriuret Pep 08051 H Total Protein 6.7 Albumin 2.7 L Globulin 4.0 Albumin/Globulin Ratio 0.7 L Procalcitonin Venous Blood Potassium 5.1 Urine Color Urine Appearance Urine pH Ur Specific [place] Urine Protein Urine Glucose (UA) Urine Ketones Urine Blood Urine Nitrate Urine Bilirubin Urine Urobilinogen Ur Leukocyte Esterase Urine RBC Urine WBC Ur Epithelial Cells Urine Bacteria Urine Other 05/11/18 05/11/18 05/11/18 15:39 16:11 17:27 WBC RBC Hgb Hct MCV MCH MCHC RDW Plt Count MPV Gran % Lymph % (Auto) [place] % (Auto) Eos % (Auto) Baso % (Auto) Gran # Lymph # (Auto) [place] # (Auto) Eos # (Auto) Baso # (Auto) PT INR APTT pCO2 51 H pO2 86.0 HCO3 27.5 ABG pH 7.34 L ABG Total CO2 29.1 H ABG O2 Saturation 98.5 H ABG O2 Content 11.5 L ABG Base Excess 1.3 ABG Hemoglobin 8.5 L ABG Carboxyhemoglobin 2.9 H POC ABG HHb (Measured) 1.4 ABG Methemoglobin 0.9 ABG O2 Capacity 11.7 L VBG pH VBG pCO2 VBG HCO3 VBG Total CO2 VBG O2 Sat (Calc) VBG Base Excess VBG Potassium Hgb O2 Saturation 94.9 L Sodium Chloride Glucose Lactate FiO2 50.0 Potassium Carbon Dioxide Anion Gap BUN Creatinine Est GFR ( Amer) Est GFR (Non-Af Amer) POC Glucose (mg/dL) 112 H Random Glucose Calcium Phosphorus Magnesium Total Bilirubin AST ALT Alkaline Phosphatase Troponin I NT-Pro-B Natriuret Pep Total Protein Albumin Globulin Albumin/Globulin Ratio Procalcitonin Venous Blood Potassium Urine Color Yellow Urine Appearance Slight-cloudy Urine pH 6.0 Ur Specific [place] >= 1.030 Urine Protein 100 H Urine Glucose (UA) Negative Urine Ketones Trace H Urine Blood Negative Urine Nitrate Negative Urine Bilirubin Negative Urine Urobilinogen 0.2 Ur Leukocyte Esterase Trace H Urine RBC 0 - 2 Urine WBC 2 - 5 Ur Epithelial Cells 0 - 2 Urine Bacteria Many Urine Other Uyeast 05/11/18 05/11/18 05/12/18 19:35 22:57 02:13 WBC 9.2 RBC 3.27 L Hgb 9.1 L Hct 30.3 L MCV 92.7 MCH 27.8 MCHC 30.0 L RDW 18.5 H Plt Count 376 MPV 9.5 Gran % 84.7 H Lymph % (Auto) 12.0 L [place] % (Auto) 1.8 Eos % (Auto) 0.8 L Baso % (Auto) 0.7 Gran # 7.80 H Lymph # (Auto) 1.1 L [place] # (Auto) 0.2 Eos # (Auto) 0.1 Baso # (Auto) 0.06 PT INR APTT pCO2 pO2 HCO3 ABG pH ABG Total CO2 ABG O2 Saturation ABG O2 Content ABG Base Excess ABG Hemoglobin ABG Carboxyhemoglobin POC ABG HHb (Measured) ABG Methemoglobin ABG O2 Capacity VBG pH VBG pCO2 VBG HCO3 VBG Total CO2 VBG O2 Sat (Calc) VBG Base Excess VBG Potassium Hgb O2 Saturation Sodium Chloride Glucose Lactate FiO2 Potassium Carbon Dioxide Anion Gap BUN Creatinine Est GFR ( Amer) Est GFR (Non-Af Amer) POC Glucose (mg/dL) 164 H 143 H Random Glucose Calcium Phosphorus Magnesium Total Bilirubin AST ALT Alkaline Phosphatase Troponin I NT-Pro-B Natriuret Pep Total Protein Albumin Globulin Albumin/Globulin Ratio Procalcitonin Venous Blood Potassium Urine Color Urine Appearance Urine pH Ur Specific [place] Urine Protein Urine Glucose (UA) Urine Ketones Urine Blood Urine Nitrate Urine Bilirubin Urine Urobilinogen Ur Leukocyte Esterase Urine RBC Urine WBC Ur Epithelial Cells Urine Bacteria Urine Other 05/12/18 05/12/18 05/12/18 06:00 07:42 11:05 WBC 6.9 D RBC 2.85 L Hgb 7.9 L Hct 26.3 L MCV 92.3 MCH 27.7 MCHC 30.0 L RDW 18.4 H Plt Count 326 MPV 9.6 Gran % 58.6 Lymph % (Auto) 28.4 [place] % (Auto) 12.0 H Eos % (Auto) 0.6 L Baso % (Auto) 0.4 Gran # 4.05 Lymph # (Auto) 2.0 [place] # (Auto) 0.8 H Eos # (Auto) 0.0 Baso # (Auto) 0.03 PT INR APTT pCO2 pO2 HCO3 ABG pH ABG Total CO2 ABG O2 Saturation ABG O2 Content ABG Base Excess ABG Hemoglobin ABG Carboxyhemoglobin POC ABG HHb (Measured) ABG Methemoglobin ABG O2 Capacity VBG pH VBG pCO2 VBG HCO3 VBG Total CO2 VBG O2 Sat (Calc) VBG Base Excess VBG Potassium Hgb O2 Saturation Sodium 141 Chloride 109 H Glucose Lactate FiO2 Potassium 5.0 Carbon Dioxide 30 Anion Gap 8 L BUN 53 H Creatinine 1.4 H Est GFR ( Amer) 46 Est GFR (Non-Af Amer) 38 POC Glucose (mg/dL) 69 Random Glucose 83 Calcium 8.2 L Phosphorus 4.2 Magnesium 1.3 L Total Bilirubin 0.3 AST 56 H D ALT 26 Alkaline Phosphatase 128 H Troponin I NT-Pro-B Natriuret Pep Total Protein 6.2 Albumin 2.4 L Globulin 3.8 Albumin/Globulin Ratio 0.6 L Procalcitonin Venous Blood Potassium Urine Color Urine Appearance Urine pH Ur Specific [place] Urine Protein Urine Glucose (UA) Urine Ketones Urine Blood Urine Nitrate Urine Bilirubin Urine Urobilinogen Ur Leukocyte Esterase Urine RBC Urine WBC Ur Epithelial Cells Urine Bacteria Urine Other Assessment & Plan - Assessment and Plan (Free Text) Assessment: A 62 year old morbidly obese female who got transferred to [facility] ER from custodial due to altered mental status. Patient is known to service from previous multiple admissions. History of coronary artery disease with stent of circumflex,hypertension,hyperlipidemia,diabetes,sleep apnea,COPD, congestive heart failure, DVT/PE. History of bowel resection in the past with colostomy. She was admitted to [facility] due to small bowel obstruction and on 04/16/18 she had explor-lap and lysis of adhesions and ventral hernia repair with revision of colostomy (Dr. Mckeon).Postoperatively, patient had infection involving th mesh placed for the hernia repair and it was recommended that she undergo an additional procedure to have the mesh removed however patient refused surgical procedure. She was stablized and transferred to [facility]. Chest X ray showed severe cardiomegaly,moderate to severe pulmonary congestion.Not in respiratory distress, On nasal cannula 4l/min. Troponin 0.14,denies chest pain, EKG- normal sinus rhythm, elevated probably due to renal insuffiency. Echo to evaluate LV function. Plan: No distress, on nasal cannula Denies chest pain Will diurese with Lasix Repeat Chest X ray in the morning Will order echo to evaluate LV function Continue current treatment Continue current medications Being evaluated by Surgery ID on Consult Further recommendations during hospital course Will follow up Plan and treatment discussed with Dr. Hernandez Thank you Dr. Florian for the opportunity of taking care of Pedro Pleitezgary - Date & Time Date: 05/12/18 Time: 07:00
--- NOTE | 2018-05-12 12:25 | PCM.RRT ---
[employer]ED [employer]AL[employer] Nurse Assessment - Situation Date: 05/11/18 Time [employer]ED [employer] DIRECTOR AND EMBALMER was called: 17:23 [employer]ED [employer] AND [employer]ALMER Responder Arrival Time: 17:25 [employer]ED [employer]ALMER Location:: [address] [place] [address] Room Number: 272-2 [employer] Reason for Call: O2 Saturation below 90% [employer]ED [employer] AND EMBALMER Called By: RN - IV IV Inserted during LICENSED FUNERAL DIRECTOR AND EMBALMER?: No IV Fluids Initiated During LICENSED FUNERAL DIRECTOR AND EMBALMER?: No. Patient travelled from ER to 2R: 272-2 without BIPAP and pulse ox - with NC2lpm was 69%. - Respiratory Oxygen Delivery Method: BiPAP @% Received Nebulizer Treatments:: No Was the Patient Ventilated with Bag/Mask 100% O2?: No Secretions Suctioned?: No Was the Patient Intubated?: No Was the Patient Placed on a Ventilator?: No - Medication Medications Administered During [employer]ED [employer] EMBALMER: hydralazine 10mg IVP - administer in 30 m inutes if BP warranted - Diagnostic Test Ordered EKG: No Chest X-Ray: No CT Scan: No - Stat Labs Ordered [employer]ALMER Stat Labs Ordered: CBC, BMP CPR started during LICENSED FUNERAL DIRECTOR AND EMBALMER?: No - Vital Signs Vital Sign: Rapid Response Vital Sign Blood Pressure 196/78 Pulse Rate 95 Respiratory Rate 20 Temperature 99.2 F Oxygen Saturation 69 - Finger Stick Blood Glucose Finger Stick Blood Glucose: 112 - [place] Coma Scale Coma Scale Eye Opening: To verbal stimuli Coma Scale Motor: Withdraw response to pain Coma Scale Verbal: Confused/able to answer - Time [employer]ED [employer] AND EMBALMER Ended Time [employer]ED [employer]OR AND EMBALMER Ended: 17:32 - Vital Signs at end of [employer]OR [employer] EMBALMER Vital Signs at end of [employer]MBALMER: Rapid Response End Vital Sign Blood Pressure 201/73 Pulse Rate 87 Respiratory Rate 18 Temperature 99.1 F O2 Sat by Pulse Oximetry 96 - Recommendations 5) [employer]ED [employer]ALMER Level of Care Recommendations: Remain in current setting Notifications: Attending Physician - Respiratory Oxygen Delivery Method: BiPAP @%
--- NOTE | 2018-05-12 15:57 | PN ---
DATE: 05/12/2018 SUBJECTIVE: The patient is seen earlier today in Room #272, bed 2. The patient's nurse caring for her states that she had an uneventful night. She had periods of weakness and lethargy and low grade fevers. PHYSICAL EXAMINATION: VITAL SIGNS: Temperature is 99.8, blood pressure is 140/60, respiratory rate 20, heart rate of 86. HEENT: Unremarkable. NECK: Supple. LUNGS: Have decreased breath sounds. HEART: Normal S1, S2. ABDOMEN: Soft, nontender. The wound appears to be clean. LABORATORY DATA: Reveals a white count of 8.3, hemoglobin of 8, platelets of 376, anticoagulation is noted, creatinine is 1.4. The patient's troponin is elevated. The BNP is elevated and microbiology is pending. MEDICATIONS: Review of orders reveals the patient to be on cefepime and micafungin. A dose of vancomycin was given yesterday. ASSESSMENT AND PLAN: This is a 62-year-old female with a history of super morbid obesity with BMI of 50 with small bowel obstruction, congestive heart failure, coronary artery disease, rectal cancer, renal disease and hyperlipidemia, GI bleed, gastroesophageal reflux disease, sleep apnea, chronic obstructive lung disease, pulmonary emboli and VRE and ESBL urinary tract infections, anxiety, recent abdominal surgery and the patient also has a inferior vena cava and had a hiatal hernia surgery, ventral hernia, incarcerated hernia, colostomy, appendectomy and now is admitted with lethargy and acute diastolic congestive heart failure on top of chronic diastolic congestive heart failure with mid abdominal wound and cellulitis and infection of the mesh. The patient is refusing removal of the mesh. The patient did have a gram-negative hong and which is sensitive to cefepime and Celsa infection; Celsa famata and repeat culture showed Celsa albicans with currently on cefepime and Mycamine and Flagyl with intermittent vancomycin. We will give another dose of vancomycin. Order a vancomycin random level. Overall prognosis is poor for this patient. Surgical intervention. Will follow with you. Lawrence Cheek MD
[2018-05-12] MEDS: NIFEdipine 60 mg ER Tab PO SCH (18:20)
[2018-05-12] MEDS: Insulin Detemir 100 units/ml Vial (Levemir) SC SCH (21:41)
--- NOTE | 2018-05-12 23:03 | PN ---
DATE: 05/12/2018 SUBJECTIVE: The patient clinically seems better, she slept well, no respiratory distress. Temperature 99.8 today. She denied any chills or any abdominal pain. She does complain of lower back pain, but otherwise seems stable. PHYSICAL EXAMINATION: VITAL SIGNS: Temperature 99.8, heart rate 84, blood pressure 146/53, respirations 20. HEAD AND NECK: Normal. No JVD. No thyromegaly. CHEST: Clear bilateral. CARDIOPULMONARY: First sound, second sound normal. ABDOMEN: Soft. There is mild tenderness in the surgery site, but otherwise the colostomy site is clean, bowel sounds intact. EXTREMITIES: No edema. NEUROLOGIC: General weakness, but she moves all extremities. She is alert, awake, oriented x3 LABORATORY STUDIES: Done today and it shows sodium 141, potassium 5, chloride 109, bicarb 30, BUN 53, creatinine 1.4, calcium 8.2, phosphorus 4.2, magnesium 1.3. AST and ALT, slightly elevated AST. Alk phos is 128. The patient also had CBC shows white count of 6.9, hemoglobin 7.9, hematocrit 26.3, platelets 326. Her urine is negative. Microbiology; we have blood cultures x2 were negative. IMPRESSION AND PLAN: A 62-year-old female came in with fever 101, clinically she is feeling better. 1. Fever. Etiology possible abdominal infection. Continue Merrem, continue Cefepime, continue Micafungin and seems stable. 2. Obstructive sleep apnea, chronic obstructive pulmonary disease. Continue Provigil 150 mg in the morning plus BiPAP machine, nebulizer treatment, seems doing well with breathing. 3. Chronic anxiety, insomnia. Continue Ativan, Remeron and we will follow up on that. 4. Insulin-dependent diabetes, hypertension, hypercholesterolemia, morbid obesity, gastroparesis. The patient is encouraged to take Ensure. Continue current therapy. 5. Hypertension, difficult to control. Continue current medication, hydralazine 100 t.i.d., clonidine patch. Continue Norvasc, Procardia, and seems doing well. 6. High pro-BNP, possible right-sided heart failure. I see Cuca here 40 IV b.i.d.. We will follow up on that. We may need to monitor her condition and we will follow up on that. Elroy Florian MD [facility] # [id number]
--- NOTE | 2018-05-12 23:12 | CON ---
DATE: 05/12/2018 PULMONARY CONSULTATION REFERRING PHYSICIAN: Dr. Florian REASON FOR CONSULTATION: Chronic respiratory failure, hypoventilation syndrome. HISTORY OF PRESENT ILLNESS: This is a 62-year-old female with multiple medical issues including hypoventilation syndrome, morbid obesity, may have sleep apnea syndrome, pulmonary hypertension, chronic lung disease, coronary artery disease, diabetes, hyperlipidemia, history of rectal cancer requiring resection, history of colostomy, recently admitted with abdominal pain, found to have a large ventral hernia requiring surgery, postop has a persistent hernia on CT scan, it was suspicious of infection in the mesh. According to surgical notes, surgery was offered but the patient refused, was sent to subacute, brought in yesterday with shortness of breath, feeling weak, abdominal pain, seen by Surgical team and Infectious Diseases, started on antibiotics, also noninvasive ventilation. No hemoptysis, no emesis. No hematuria. No leg swelling. PAST MEDICAL HISTORY: As per history of present illness. ALLERGIES: NONE KNOWN. SOCIAL HISTORY: Nonsmoker, nondrinker. FAMILY HISTORY: No significant cardiopulmonary disease reported. MEDICATIONS: She is on hydralazine 100 mg three times a day, lorazepam 0.5 mg every 8 hours p.r.n. for anxiety, Brovana inhaled twice a day, getting clonidine patch weekly, Colace 100 mg three times a day, vitamin D 50,000 units every 7 days, albuterol/Atrovent nebulizer every 12 hours p.r.n. and every 6 hours [id number], Ecotrin 81 mg daily, Eliquis 2.5 mg twice a day, ferrous gluconate 324 mg daily, metronidazole 500 mg every 8 hours, insulin coverage, isosorbide 60 mg daily, Lasix 40 mg twice a day, Levemir 20 units subcu h.s., Lipitor 20 mg h.s., cefepime is 1 g IV every 12 hours, micafungin 100 mg daily, Nephro-Holland once daily, Norvasc 10 mg daily, modafinil 150 mg daily in the morning, Procardia XL 60 mg daily, Protonix 20 mg daily, Pulmicort inhaled twice a day, Reglan 5 mg a.c. and h.s., labetalol 300 mg every 8 hours, Tylenol p.r.n., Zofran p.r.n. basis. REVIEW OF SYSTEMS: No headache, no rhinitis. Sleepy and tired. Been having some insomnia at long-term. Not much cough but short of breath. No chest pain. Has abdominal pain. Not much stool in the colostomy. Very poor appetite. No significant leg swelling. PHYSICAL EXAMINATION: GENERAL: Lying in the bed, sleepy, arousable. VITAL SIGNS: Temperature is 98, heart rate is 99, respiratory rate is 24, blood pressure 128/64, pulse ox 99% on BiPaP at 60% oxygen. HEENT: Moist mucous membrane. Crowded airway. Mallampati score is 4. NECK: Short, thick neck. LUNGS: Have fair airflow with rhonchi. HEART: S1, S2. ABDOMEN: Obese. Has a dressing on the surgical site. Colostomy bag empty. Positive bowel sounds. Tender on palpation. EXTREMITIES: No edema. NEUROLOGIC: Awake, alert, follows simple commands. LABORATORY DATA: Shows hemoglobin 7.9, hematocrit 26.3, WBC 6.9, platelet count is 326. INR 1.30, PTT 20. ABG shows pH 7.34, pCO2 of 51, O2 of 86, this is on supplemental oxygen. Sodium 141, potassium 5, chloride 109, bicarbonate 30, BUN 53, creatinine 1.4, glucose 91, calcium 8.2, phosphorus 4.2, magnesium 1.3, AST 56, ALT 26, alk phos is 128, albumin is 2.4. Microbiology, blood culture, there is no growth. Had a CT of the abdomen done yesterday from ER, which shows midline ostomies are seen, surgical clips are seen over the left side of the abdomen. There is soft tissue thickening in the presacral space. No changes on recent exam. Chest x-ray done in ER shows moderate to severe pulmonary vascular congestion. IMPRESSION AND PLAN: Status post laparotomy with small-bowel obstruction with hernia repair and relocation of colostomy, hypoventilation syndrome with CO2 retention and hypoxemia requiring noninvasive ventilation, history of pulmonary embolism and deep venous thrombosis in the remote past, hypertension, diabetes, morbid obesity, pulmonary hypertension, chronic obstructive lung disease, recurrent abdominal pain, may have a mesh infection. The patient seen by Surgical team, also seen by Infectious Diseases, Dr. Cheek, started on antibiotics. Continue BiPaP while sleeping. Bronchodilator. Gastric prophylaxis, anticoagulation. Continue daytime stimulant, does have daytime hypersomnia. Thank you and we will follow with you. Pamela Ayala MD
[2018-05-13] MEDS: Albuterol-Ipratrop 3 mg / 0.5 (3 ml) UD IH SCH ×4 (02:33→19:46)
--- NOTE | 2018-05-13 03:30 | HP ---
DATE OF EXAM: 05/11/2018 The patient is 62-year-old female who came into the hospital because of fever. HISTORY OF PRESENT ILLNESS: This is a 62-year-old obese female diabetic with history of recent surgery done for bowel obstructions may be two or more weeks ago. She was in rehab unit being agitated, had insomnia and agitations; came in with fever of 101, brought in to the ER for evaluation. The patient has been on IV antibiotics for abdominal wound infection. The patient is still anxious; although, she did not complain of any coughing or any shortness of breath. She does have some mild shortness of breath, but she is not moving much. She is lying in bed most of the day and she is not using her BiPAP machine as prescribed. The patient still has some mild discomfort in the abdominal wall, but no other complaints. The patient was evaluated in the ER and blood was drawn for further evaluation plus some radiological testing. PAST MEDICAL HISTORY: Significant for morbid obesity; she is very obese, she is almost more than 305 pounds, her BMI 55.9. She is also diabetic, insulin dependent; hypertension, difficult to control; also hypercholesterolemia; chronic back pain; multiple disk diseases, on chronic pain therapy. She has sacral decubitus, stage 2. ALLERGIES: NO KNOWN ALLERGIES. SOCIAL HISTORY: She lives by herself in house, nobody else. Her son lives in the apartment. She has a home visiting private duty nurse who helps her. REVIEW OF SYSTEMS: The patient is usually in correction, lying in bed; difficult to ambulate. She sometimes sits in a chair. She has difficulty, was agitated, very anxious, insomnia; Ativan, Remeron and trazodone. She also has problems with abdominal pain, not much; as her back pain is more; also she has difficulty ambulation. She is short of breath and she is on BiPAP, but not using it. Her lower extremities edema resolved and not edematous anymore; and general weakness noted. She moves all extremities, but she is generally weak. PHYSICAL EXAMINATION: GENERAL: The patient was seen in emergency room, lying supine, does not seem to be in respiratory distress. She is more awake, less anxious than before. Please be advised that this note that I am dictating is for 05/11/2018. VITAL SIGNS: Her temperature 98.6 here and was earlier 101 and here it is 99.2 the max temperature; heart rate 95; blood pressure 196/78. She has 19 breath sounds with shallow rapid. HEAD AND NECK: Normal. No JVD. No thyromegaly. CHEST: Clear bilateral. CARDIAC: First sound and second sound normal. Systolic murmur. ABDOMEN: Midline incisions; mild redness, covered and colostomy on the right side. EXTREMITIES: No edema. NEUROLOGIC: She is awake; she is alert; she is oriented x3 and she moves all extremities. LABORATORY DATA: As follows; white count 8.3, hemoglobin 8.9, hematocrit 30.3, platelets 379. Chemistries: Sodium 141, potassium 5.1, chloride 107, bicarb 29, BUN 50, creatinine 1.4, blood sugar 139, calcium 8.5, phosphorus 4.1, magnesium 1.3, alk phos slightly elevated 157, AST 38 slightly elevated, ALT is normal, troponin is 0.15 and proBNP 25,000. The patient also had a CT abdomen and pelvis done; midline ostomies are seen, surgical clips are seen over the left side of the abdomen, soft tissue thickening in the part of sacral area noted from recent exam. IMPRESSION AND PLAN: 1. Fever, etiology unclear; could be abdominal wall infection; continue IV antibiotics. The same one she was getting at rehab unit. Continue local wound care. 2. Sacral decubitus, continue local wound care. 3. Hypertension, difficult to control; resume all blood pressure medicine; renal consults for his blood pressure. 4. Chronic renal failure, which seems stable; we will get a nephrology consult from Dr. Samuels's team; will follow up with that. 5. Chronic obstructive pulmonary disease, morbid obesity, obstructive sleep apnea; continue bilevel positive airway pressure; continue steroids, follow up with Dr. Ayala. 6. Diabetes; continue insulin coverage, resume all her medications. 7. The patient has obstructive sleep apnea with nocturnal insomnia; we are going to continue Nuvigil 150 mg in the morning and continue Remeron at night; we will follow the patient clinically and we will continue current treatment. Elroy Florian MD
[2018-05-13 06:28] LABS: BASO # 0.04 K/mm3 (0.0-2.0); BASO % 0.5 % (0.0-3.0); EOS # 0.2 (0.0-0.7); EOS % 3.3 % (1.5-5.0); GRAN # 4.58 (1.4-6.5); GRAN % 62.9 % (50.0-68.0); LYMPH # 1.7 (1.2-3.4); LYMPH % 23.7 % (22.0-35.0); MEAN CELL VOLUME 91.9 fl (80.0-105.0); MEAN CORPUSCULAR HEMOGLOBIN 27.1 pg (25.0-35.0); MEAN CORPUSCULAR HGB CONC 29.5 g/dl (31.0-37.0); MEAN PLATELET VOLUME 9.6 fl (7.0-11.0); MONO # 0.7 (0.1-0.6); MONO % 9.6 % (1.0-6.0); RBC 2.95 10^6/uL (3.5-6.1); RED CELL DISTRIBUTION WIDTH 18.7 % (11.5-14.5); WHITE BLOOD COUNT 7.3 10^3/uL (4.5-11.0)
[2018-05-13 06:44] LABS: CALCIUM 7.8 mg/dL (8.4-10.5)
[2018-05-13] MEDS: Arformoterol 15 mcg/2 ml Inh Sol IH SCH ×2 (07:28→19:46)
[2018-05-13] MEDS: Budesonide 0.5 mg/2 ml Inhal Susp UD IH SCH ×2 (07:28→19:46)
[2018-05-13] MEDS: Insulin Reg-LOW-Coverage SC SCH ×4 (08:00→22:07)
--- NOTE | 2018-05-13 08:25 | CON ---
DATE: 05/12/2018 ADDENDUM HISTORY OF PRESENT ILLNESS: The patient is in room 272, bed 2. Detailed consult has been already written by Tiffanie Osborne. This is an addendum to that. The patient admitted from [facility] with a history that the patient was more drowsy altered mental status and the patient also has fever, so the patient was transferred here. The patient denies any chest pain, shortness of breath or palpitation, but was found to have on x-ray congestive heart failure changes. The patient has a history of coronary artery disease with stent in circumflex artery, hypertension, hyperlipidemia, diabetes mellitus, sleep apnea, COPD, decompensated congestive heart failure, DVT, pulmonary embolism, history of bowel resection in the past with colostomy. She is status post exploratory lap due to obstruction and lysis of adhesions, and ventral hernia repair with revision of colostomy done by Dr. Mckeon, surgeon. Postop the patient has infection involving the mesh, which was placed for the hernia repair. Surgical intervention to remove the infected mesh was suggested, but the patient has refused to have second procedure. The patient was stabilized and sent to [facility] and now she is back from there with the above complaints. The patient lying flat in bed without any chest pain, shortness of breath or palpitation. On lab, the patient's troponin is 0.15, but the patient's BUN also elevated 50, creatinine 1.4, sugar 164, magnesium 1.3 yesterday, potassium was 5.1 yesterday, sodium 141, random glucose also 139. Magnesium today is still 1.3, potassium 5, random sugar 69 and 91, AST 56, ALT 26. WBC 6.9, hemoglobin 7.9, hematocrit 26.3, and platelets 326. IMPRESSION: The patient has altered mental status, fever, infection, congestive heart failure, anemia and renal dysfunction. The patient's troponin may be related to false elevation due to high BUN and creatinine. The patient has also hyperkalemia, which is under control today. The patient has also low magnesium sulfate 1 mg IV has been ordered today already. The patient also on cefepime 1 g every 12 hours, micafungin 100 mg IV daily, amlodipine 10 mg daily, nifedipine ER 60 mg daily, labetalol 300 mg p.o. every 8 hours, atorvastatin 20 daily, Lasix 40 mg IV twice a day, and isosorbide 60 daily. We will repeat labs in the morning and will follow with you. Detailed consult has been written by Tiffanie Osborne. Pamela Hernandez MD
[2018-05-13] MEDS: Multivitamin Vitamin B Complex (Nephro-Vite) Tab PO SCH (08:57)
[2018-05-13] MEDS: Pantoprazole 20 mg EC Tab PO SCH (08:58)
[2018-05-13] MEDS: Cefepime 1gm in NS 100ml 1 GM/100 ML BAG IVPB SCH ×2 (09:33→22:07)
--- NOTE | 2018-05-13 10:47 | PN ---
DATE: 05/12/2018 The patient was seen on the floor. Her CAT scan actually looks a little bit better, one of the fluid is gone. Still has the hernia as seen before and needs some operation where the current medical status would differ for now. The fact is that she is refusing an operation is important. In addition, she is a very high surgical risk as we known before and continues noting that the BNP is 26,000 and the troponins are elevated. We will continue to follow on antibiotics without surgical intent. Osmar Mckeon MD
[2018-05-13] MEDS: Micafungin 100 MG in Sodium Chloride 0.9% 100 ML IV SCH (11:00)
--- NOTE | 2018-05-13 11:03 | CP.PCM.PN ---
Subjective - Date & Time of Evaluation Date of Evaluation: 05/13/18 Time of Evaluation: 10:40 - Subjective Subjective: No increase in abdominal pain but still with abdominal discomfort, no fevers. Objective - Vital Signs/Intake and Output Vital Signs (last 24 hours): Temp Pulse Resp BP Pulse Ox 98.5 F 99 H 19 128/64 99 05/12/18 12:00 05/12/18 14:00 05/12/18 12:00 05/12/18 18:20 05/12/18 06:00 Intake and Output: 05/12/18 05/13/18 18:59 06:59 Intake Total 920 Output Total 550 Balance 370 - Medications Medications: Current Medications Acetaminophen (Tylenol 325mg Tab) 650 mg PO Q4H PRN PRN Reason: Pain, Mild (1-3) Albuterol/Ipratropium (Duoneb 3 Mg/0.5 Mg (3 Ml) Ud) 3 ml IH [id number] [facility] Last Admin: 05/12/18 20:31 Dose: 3 ml Albuterol/Ipratropium (Duoneb 3 Mg/0.5 Mg (3 Ml) Ud) 3 ml IH Q2H PRN PRN Reason: Shortness of Breath Amlodipine Besylate (Norvasc) 10 mg PO DAILY [facility] Last Admin: 05/12/18 10:38 Dose: 10 mg Apixaban (Eliquis) 2.5 mg PO BID [facility]; Protocol Last Admin: 05/12/18 18:20 Dose: 2.5 mg Arformoterol Tartrate (Brovana) 15 mcg IH [id number] [facility] Last Admin: 05/12/18 20:31 Dose: 15 mcg Armodafinil (Nuvigil 150 Mg Tab) 150 mg PO DAILY [facility] Last Admin: 05/12/18 10:38 Dose: 150 mg Aspirin (Ecotrin) 81 mg PO DAILY [facility] Last Admin: 05/12/18 10:37 Dose: 81 mg Atorvastatin Calcium (Lipitor) 20 mg PO HS [facility] Last Admin: 05/12/18 21:16 Dose: 20 mg Budesonide (Pulmicort Respules) 0.5 mg IH [id number] [facility] Last Admin: 05/12/18 20:30 Dose: 0.5 mg Clonidine HCl (Catapres-Tts3 0.3 Mg/24 Hr) 1 patch TD Q7D@1000 JR Docusate Sodium (Colace) 100 mg PO TID [facility] Last Admin: 05/12/18 18:20 Dose: 100 mg Ergocalciferol (Drisdol 50,000 Intl Units Cap) 1 cap PO Q7D [facility] Last Admin: 05/11/18 23:12 Dose: 1 cap Ferrous Gluconate (Fergon) 324 mg PO DAILY [facility] Last Admin: 05/12/18 10:38 Dose: 324 mg Furosemide (Lasix) 40 mg IVP BID [facility] Last Admin: 05/12/18 18:19 Dose: 40 mg Furosemide (Lasix) 40 mg PO DAILY [facility] Last Admin: 05/12/18 10:39 Dose: Not Given Hydralazine HCl (Apresoline) 100 mg PO TID [facility] Last Admin: 05/12/18 18:20 Dose: 100 mg Micafungin Sodium 100 mg/ (Sodium Chloride) 100 mls @ 100 mls/hr IV DAILY [facility]; Protocol Stop: 05/20/18 22:00 Last Admin: 05/12/18 11:38 Dose: 100 mls/hr Cefepime HCl (Maxipime 1gm) 1 gm in 100 mls @ 100 mls/hr IVPB Q12 [facility]; Protocol Stop: 05/20/18 22:16 Last Admin: 05/12/18 21:16 Dose: 100 mls/hr Insulin Detemir (Levemir) 20 unit SC [facility] Last Admin: 05/11/18 23:12 Dose: 20 units Insulin Human Regular (Humulin R Low) 0 units SC [facility]; Protocol Last Admin: 05/12/18 07:30 Dose: Not Given Isosorbide Mononitrate (Imdur) 60 mg PO DAILY [facility] Last Admin: 05/12/18 10:38 Dose: 60 mg Labetalol HCl (Trandate) 300 mg PO Q8 [facility] Last Admin: 05/12/18 14:44 Dose: 300 mg Lorazepam (Ativan) 0.5 mg PO Q8H PRN; Protocol PRN Reason: Anxiety Metoclopramide HCl (Reglan) 5 mg PO ACHS [facility] Last Admin: 05/12/18 11:38 Dose: 5 mg Metronidazole (Flagyl) 500 mg PO Q8 [facility]; Protocol Stop: 05/21/18 14:01 Last Admin: 05/12/18 21:16 Dose: 500 mg Nifedipine (Procardia Xl) 60 mg PO QPM [facility] Last Admin: 05/12/18 18:20 Dose: 60 mg Ondansetron HCl (Zofran Inj) 4 mg IVP Q4H PRN PRN Reason: Nausea/Vomiting Pantoprazole Sodium (Protonix Ec Tab) 20 mg PO ACB [facility] Last Admin: 05/12/18 08:31 Dose: 20 mg Simethicone (Mylicon Chew Tab) 80 mg PO PCHS PRN PRN Reason: GI distress Vitamin B Complex/Vit C/Folic Acid (Nephro-Holland) 1 tab PO 0800 [facility] Last Admin: 05/12/18 08:31 Dose: 1 tab - Labs Labs: 05/12/18 11:05 05/12/18 06:00 PT 15.0 SECONDS (9.4-12.5) H 05/11/18 13:45 INR 1.30 05/11/18 13:45 APTT 20.4 Seconds (25.1-36.5) L 05/11/18 13:45 - Constitutional Appears: Chronically Ill - Head Exam Head Exam: NORMAL INSPECTION - Respiratory Exam Respiratory Exam: Decreased Breath Sounds Additional comments: port-a-cath on anterior chest wall in place - Cardiovascular Exam Cardiovascular Exam: +S1, +S2 - GI/Abdominal Exam GI & Abdominal Exam: Soft. absent: Tenderness Additional comments: dressings in place Assessment and Plan - Assessment and Plan (Free Text) Plan: Assessment abdominal wall cellulitis with probable infected abdominal mesh; most recent cultures from 05/03/2018 showed Pseudomonas and C. famata S/P small bowel obstruction in this patient with ventral wall hernia, S/P ventral incarcerated hernia repair, adhesiolysis and revision of colostomy S/P acute coronary syndrome with NSTEMI COPD history of VRE UTI history of severe sepsis secondary to left medial thigh abscess, growing Pro teus, S/P incision and drainage DM HTN CAD Unresectable rectal cancer S/P chemotherapy and radiation therapy S/P colostomy S/P Port-a-cath placement morbid obesity with BMI 50 obstructive sleep apnea history of pulmonary embolism S/P IVC filter placement Plan continue Cefepime and Flagyl and Mycamine as well as intermittent Vancomycin pending repeat abdominal wound cx; follow up further plans of surgery, but apparently the patient has been refusing to have the mesh removed as per other doctors will continue to monitor clinically
--- NOTE | 2018-05-13 14:25 | PN ---
DATE: 05/13/2018 PULMONARY PROGRESS NOTE REFERRING PHYSICIAN: Elroy Florian MD SUBJECTIVE: The patient is sitting up in bed. Reports feeling well today. Reports some abdominal pain at the surgical site. Reports using CPAP machine last night. No headache, rhinitis, cough, shortness of breath, chest pain, nausea, vomiting, diarrhea, leg pain, leg swelling reported. OBJECTIVE VITAL SIGNS: Blood pressure 136/61, pulse 71, temperature 98.7, oxygen saturation 99% on nasal cannula. GENERAL: No acute distress. HEENT: Moist mucous membranes. Crowded airway. Mallampati score of 4. NECK: Supple. No JVD. Short and thick. LUNGS: A few rhonchi bilaterally. CARDIOVASCULAR: S1, S2 audible. ABDOMEN: Obese. Dressing to surgical site, has colostomy bag with liquid stool. Positive bowel sounds. Tender on palpation. EXTREMITIES: No bilateral lower extremity edema. NEUROLOGIC: Awake, alert. Verbal. Follows simple commands. LABORATORY DATA: Reviewed. WBC 7.3, RBC 2.95, hemoglobin 8, hematocrit 27.1, platelets 350. Sodium 141, potassium 4.9, chloride 109, carbon dioxide 29, anion gap 8, BUN 54, creatinine 1.5, GFR 35. POC glucose 119, random glucose 129. Calcium 7.9, phosphorus 3.7, magnesium 1.4. Urine culture positive for yeast. Blood culture pending. MEDICATIONS: Reviewed. Tylenol 650 mg by mouth every four hours as needed for mild pain, DuoNeb 3 mL inhalation every two hours as needed, DuoNeb 3 mL inhalation every six hours, Norvasc 10 mg by mouth daily, Eliquis 2.5 mg by mouth daily, Brovana 15 mcg inhalation every 12 hours, Nuvigil 150 mg by mouth daily, Ecotrin 81 mg by mouth daily, Lipitor 20 mg at bedtime, Pulmicort 0.5 mg inhalation every 12 hours, cefepime 1 g IV every 12 hours, clonidine patch 0.3 mg every 24 hours, Colace 100 mg by mouth three times a day, ergocalciferol 50,000 units weekly, ferrous gluconate 324 mg daily, Lasix 40 mg IV push twice a day, hydralazine 100 mg by mouth three times a day, Levemir 20 units subcutaneously at bedtime, Humulin R sliding scale, Imdur 60 mg by mouth daily, labetalol 300 mg every eight hours, Ativan 0.5 mg every eight hours as needed, Reglan 5 mg by mouth before meals and at bedtime, Flagyl 500 mg every eight hours, micafungin 100 mg daily, Procardia 60 mg daily, Zofran 4 mg IV push every four hours as needed, pantoprazole 20 mg, simethicone 80 mg by mouth as needed, Nephro-Holland one tab by mouth daily. IMPRESSION AND PLAN: Status post laparotomy with small-bowel obstruction with hernia repair and relocation of colostomy, hypoventilation syndrome with CO2 retention, and hypoxia requiring non-invasive ventilation, history of pulmonary embolism and deep venous thrombosis in the remote past, diabetes, morbid obesity, hypertension, chronic obstructive lung disease, pulmonary hypertension, recurrent abdominal pain, may have mesh infection. Continue to follow up with surgical team, follow up with Infectious Disease. Continue antibiotic therapy. Continue bilevel positive airway pressure use while sleeping. Continue inhaled bronchodilators. Gastric prophylaxis. Currently, on anticoagulation therapy. Continue daytime stimulant as the patient tends to have daytime hypersomnia. Pressure ulcer precaution. Sleep apnea precaution. Head of bed elevated to 45 degrees. This patient was seen and examined with Dr. Ayala. Discussed assessment and plan as described above. Thank you for this consult and we will follow with you. Breezy Schafer APN Pamela Ayala MD
[2018-05-13] MEDS ORDERED: Magnesium Sulfate 2 gm/50 ml 2 GM/50 ML BAG IVPB ONE (14:33)
[2018-05-13] MEDS: NIFEdipine 60 mg ER Tab PO SCH (18:04)
[2018-05-13] MEDS: Magnesium Oxide 400 mg Tab UD PO SCH (18:04)
--- NOTE | 2018-05-13 20:31 | PN ---
DATE: 05/13/2018 REASON FOR CONSULTATION: Follow up cardiac evaluation, admitted with altered mental status, history of present abdominal surgery, history of coronary artery disease. The patient denies any chest pain, shortness of breath, or any palpitations. Appears to be not in apparent distress. PHYSICAL EXAMINATION: As follows: VITAL SIGNS: Temperature afebrile, heart rate 78, blood pressure 153/60. HEENT: PERRLA. Extraocular muscles are intact. NECK: Supple. No carotid bruits. No thyromegaly. CHEST: Clear to auscultation. HEART: S1, S2 regular. ABDOMEN: Soft. EXTREMITIES: Clubbing and cyanosis negative. LABORATORY DATA: Blood workup as follows: WBC 7.3, hemoglobin 8, hematocrit 27.1, platelet count 350. Chemistry shows sodium , potassium 4.7, chloride 109, carbon dioxide 29, anion gap 8, BUN 54, creatinine 1.5, magnesium 1.4. IMPRESSION: A 62-year-old female with past medical history significant for morbid obesity, coronary artery disease, history of congestive heart failure, history of deep venous thrombosis and pulmonary embolism, history of rectal cancer status post chemotherapy, status post radiation, status post colostomy, who had recently small bowel obstruction, underwent exploratory laparotomy on 04/16/2018 and lysis of adhesions, but still complaining of abdominal pain, suggested reexploration of the abdominal wound, but the patient refused. Went to the skilled nursing, admitted with altered mental status. History of percutaneous transluminal coronary angioplasty of the circumflex in the past. Troponin is borderline, but in face of the renal insufficiency, probably significant unknown, may be underlying coronary artery disease. RECOMMENDATIONS: The patient is asymptomatic with indeterminate ranges of troponin, and in face of creatinine clearance probably significant unknown. Severe hypomagnesemia, protein-calorie malnutrition which is present since admission. Recommendation, continue broad -spectrum antibiotics, aggressively supplement potassium, monitor electrolytes, surgical evaluation. We will get 3 doses of p.o. magnesium oxide and also monitor electrolytes. Thank you Dr. Florian for providing us an opportunity in taking care of the patient, Ismael Vasquez. We will follow with you. Pamela Guerrero MD
[2018-05-13] MEDS: Insulin Detemir 100 units/ml Vial (Levemir) SC SCH (22:07)
[2018-05-14] MEDS: Albuterol-Ipratrop 3 mg / 0.5 (3 ml) UD IH SCH ×4 (02:10→19:40)
--- NOTE | 2018-05-14 03:24 | CON ---
DATE: 05/13/2018 IDENTIFYING INFORMATION: The patient is a 62-year-old [place] female who was admitted to the hospital in a febrile state. HISTORY OF PRESENT ILLNESS: The patient who has a history of diabetes, had recent surgery for bowel obstruction approximately 2 weeks ago. She was then in a rehabilitation facility but reportedly became agitated, was not sleeping and developed fever of 101 degrees Fahrenheit before being brought to the emergency room for evaluation. She had been receiving intravenous antibiotics for an abdominal wound infection. She was noted to be anxious. She did have some shortness of breath. It was noted that she had been spending most of her day lying in bed and not using her BiPAP machine that had been prescribed. She also had mild discomfort of her abdominal wall but no other complaints. The patient's medical history is positive also for morbid obesity (weighing more than 305 pounds; with a BMI of 55.9). She also has insulin-dependent diabetes, hypertension, hypercholesterolemia, chronic back pain, multiple disc disease and chronic pain as well as stage II sacral decubitus. SOCIAL HISTORY: Indicates that she lives by her house but the patient informs me she lives with her son. She also has a private duty nurse who helps her. Her medical history notes also the presence of chronic renal failure, COPD with obstructive sleep apnea. For this she is being maintained on Nuvigil 150 mg in the morning and receives Remeron nightly (according to the record - although it is unclear to me why she is on this sedating antidepressant). [place] patient [place]. She came to this country over 30 years ago. 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 She came then to the [facility]. She was for many years to her who in the midst of cardiac surgery a number of years ago. 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 She described this marriage as having been good. She lives off a pension that her had left from his job as well as the social security. She has one son, age 39, who she described as good. He is and she has two grandchildren from him whom she sees and interacts with (and possibly baby-sit for). She denied a prior psychiatric history. She stated that she is one of two surviving children of six children of her parents (with an older sister who lives in the [place]). Her siblings of varying causes including heart disease and cancer. She denied a prior psychiatric history or familial psychiatric history. She was alert and oriented although somewhat slowed in thinking and her eyes tended to gaze upward at times. (I interviewed her with the assistance of an Turkish speaking nurse, Francisco Lagunas). The patient denied feelings of depression or suicidality or homicidality, but did speak of anxiety, the more so when she has abdominal pain. Her present medication regimen lists Ativan 0.5 every 8 hours p.r.n., Dilaudid 2 mg every 4 hours p.r.n. pain. The possible utility of Remeron is unclear to me at this time but I will start the patient on Klonopin (clonazepam 1 mg) (a long-acting benzodiazepine that will take 5-7 days to fully accumulate a state of equilibrium). We will discuss the case further with you. CBC and differential today showed a lowered RBC 2.95, hemoglobin 8.0, hematocrit 27.1. A biochemical profile shows a blood glucose elevated at 165, BUN elevated at 54, creatinine elevated at 1.5, magnesium low at 1.4, calcium low 7.8. Blood pressure 120/50, pulse 77, temperature 99.5, respiratory rate 18. Thank you as always for this consultation in this woman who appears to have either a generalized anxiety disorder or an adjustment disorder with anxious features in response to her pain and illness. Eusebio Mendoza MD/ PhD
[2018-05-14] MEDS: Pantoprazole 20 mg EC Tab PO SCH (07:03)
[2018-05-14] MEDS: Insulin Reg-LOW-Coverage SC SCH ×4 (07:35→22:53)
[2018-05-14] MEDS: Multivitamin Vitamin B Complex (Nephro-Vite) Tab PO SCH (07:37)
[2018-05-14 07:57] LABS: BASO # 0.02 K/mm3 (0.0-2.0); BASO % 0.3 % (0.0-3.0); EOS # 0.3 (0.0-0.7); EOS % 4.5 % (1.5-5.0); GRAN # 4.05 (1.4-6.5); GRAN % 65.6 % (50.0-68.0); LYMPH # 1.2 (1.2-3.4); LYMPH % 19.1 % (22.0-35.0); MEAN CELL VOLUME 93.4 fl (80.0-105.0); MEAN CORPUSCULAR HEMOGLOBIN 27.6 pg (25.0-35.0); MEAN CORPUSCULAR HGB CONC 29.5 g/dl (31.0-37.0); MEAN PLATELET VOLUME 9.5 fl (7.0-11.0); MONO # 0.7 (0.1-0.6); MONO % 10.5 % (1.0-6.0); RBC 2.9 10^6/uL (3.5-6.1); RED CELL DISTRIBUTION WIDTH 18.9 % (11.5-14.5); WHITE BLOOD COUNT 6.2 10^3/uL (4.5-11.0)
[2018-05-14] MEDS: Arformoterol 15 mcg/2 ml Inh Sol IH SCH ×2 (08:59→19:40)
[2018-05-14] MEDS: Budesonide 0.5 mg/2 ml Inhal Susp UD IH SCH ×2 (08:59→19:40)
[2018-05-14] MEDS: Micafungin 100 MG in Sodium Chloride 0.9% 100 ML IV SCH (09:53)
[2018-05-14] MEDS: Magnesium Oxide 400 mg Tab UD PO SCH ×2 (09:53→18:08)
--- NOTE | 2018-05-14 09:58 | PN ---
DATE: 05/13/2018 SUBJECTIVE: The patient had anxiety. She wants to get up, she cannot, she is just weak. She does complain of low back pain and also sacral decubitus pain. The patient otherwise has no respiratory distress. No fever. No nausea. Still not eating. PHYSICAL EXAMINATION: On 05/13/2018, as follows, VITAL SIGNS: Temperature is 99.5, heart rate 82, blood pressure 160/67 and respirations 18. HEAD AND NECK: Normal. No JVD. No thyromegaly. CHEST: Clear bilateral. CARDIAC: First sound and second sound normal. ABDOMEN: There is a midline incisions with sutures and right colostomy. EXTREMITIES: No edema. NEUROLOGIC: The patient is alert, awake and oriented x3. She moves all extremities, but generally weak. LABORATORY DATA: White count 7.3, hemoglobin 8, hematocrit 27.1 and platelets 150. Chemistry noted for sodium 141, potassium 4.9, chloride 109, bicarb 29, BUN 54, creatinine 1.5, glucose 129, calcium 7.8, phosphorous 3.7 and magnesium 1.4. IMPRESSION AND PLAN: 1. Abdominal wound infections. Continue current antibiotic. She is getting Merrem and antifungal therapy, micafungin and continue local wound care. 2. Chronic back pain with acute worsening and a bit sore. The patient was moving from one side to side. She feel she want to get up. We will get physical therapy. Move the patient out of bed to chair, large chair that would help. 3. Anxiety. The patient did sleep good last night. However, she does have some anxiety. We will get a psychiatric consult to see her. 4. Hypertension, stable. 5. Chronic renal failure which improved a lot with current medications. Continue current medicine. Continue Lasix 40 p.o. only. We will discontinue IV Lasix for now. 6. Diabetes, Insulin-dependant and iron deficiency anemia. 7. Hypercoagulable state, history of pulmonary emboli and deep venous thrombosis, coronary artery disease or right sided heart failure, pulmonary hypertension. Continue current medications. 8. Morbid obesity, obstructive sleep apnea, chronic obstructive pulmonary disease. Continue inhaled bronchodilators bilevel positive airway pressure. Follow up with monorail crane operator and mill control operator. Elroy Florian MD [facility] # [id number]
--- NOTE | 2018-05-14 10:09 | CP.PCM.PN ---
Subjective - Date & Time of Evaluation Date of Evaluation: 05/14/18 Time of Evaluation: 09:10 - Subjective Subjective: Comfortable, still feels weak, no fevers. Still with abdominal pain but not getting worse. Objective - Vital Signs/Intake and Output Vital Signs (last 24 hours): Temp Pulse Resp BP Pulse Ox 98.7 F 77 20 136/61 99 05/13/18 06:00 05/13/18 09:31 05/13/18 06:00 05/13/18 09:33 05/13/18 06:00 Intake and Output: 05/13/18 05/13/18 06:59 18:59 Intake Total 580 Output Total 300 Balance 280 - Medications Medications: Current Medications Acetaminophen (Tylenol 325mg Tab) 650 mg PO Q4H PRN PRN Reason: Pain, Mild (1-3) Albuterol/Ipratropium (Duoneb 3 Mg/0.5 Mg (3 Ml) Ud) 3 ml IH [id number] [facility] Last Admin: 05/13/18 07:28 Dose: Not Given Albuterol/Ipratropium (Duoneb 3 Mg/0.5 Mg (3 Ml) Ud) 3 ml IH Q2H PRN PRN Reason: Shortness of Breath Amlodipine Besylate (Norvasc) 10 mg PO DAILY [facility] Last Admin: 05/13/18 09:33 Dose: 10 mg Apixaban (Eliquis) 2.5 mg PO BID [facility]; Protocol Last Admin: 05/13/18 09:32 Dose: 2.5 mg Arformoterol Tartrate (Brovana) 15 mcg IH [id number] [facility] Last Admin: 05/13/18 07:28 Dose: Not Given Armodafinil (Nuvigil 150 Mg Tab) 150 mg PO DAILY [facility] Last Admin: 05/13/18 09:33 Dose: 150 mg Aspirin (Ecotrin) 81 mg PO DAILY [facility] Last Admin: 05/13/18 09:32 Dose: 81 mg Atorvastatin Calcium (Lipitor) 20 mg PO HS [facility] Last Admin: 05/12/18 21:16 Dose: 20 mg Budesonide (Pulmicort Respules) 0.5 mg IH [id number] [facility] Last Admin: 05/13/18 07:28 Dose: Not Given Clonidine HCl (Catapres-Tts3 0.3 Mg/24 Hr) 1 patch TD Q7D@1000 JR Docusate Sodium (Colace) 100 mg PO TID [facility] Last Admin: 05/13/18 09:32 Dose: 100 mg Ergocalciferol (Drisdol 50,000 Intl Units Cap) 1 cap PO Q7D [facility] Last Admin: 05/11/18 23:12 Dose: 1 cap Ferrous Gluconate (Fergon) 324 mg PO DAILY [facility] Last Admin: 05/13/18 09:32 Dose: 324 mg Furosemide (Lasix) 40 mg IVP BID [facility] Last Admin: 05/12/18 18:19 Dose: 40 mg Furosemide (Lasix) 40 mg PO DAILY [facility] Last Admin: 05/13/18 09:32 Dose: 40 mg Hydralazine HCl (Apresoline) 100 mg PO TID [facility] Last Admin: 05/13/18 09:31 Dose: 100 mg Micafungin Sodium 100 mg/ (Sodium Chloride) 100 mls @ 100 mls/hr IV DAILY [facility]; Protocol Stop: 05/20/18 22:00 Last Admin: 05/12/18 11:38 Dose: 100 mls/hr Cefepime HCl (Maxipime 1gm) 1 gm in 100 mls @ 100 mls/hr IVPB Q12 [facility]; Protocol Stop: 05/20/18 22:16 Last Admin: 05/13/18 09:33 Dose: 100 mls/hr Insulin Detemir (Levemir) 20 unit SC HS [facility] Last Admin: 05/12/18 21:41 Dose: Not Given Insulin Human Regular (Humulin R Low) 0 units SC ACHS [facility]; Protocol Last Admin: 05/13/18 08:00 Dose: Not Given Isosorbide Mononitrate (Imdur) 60 mg PO DAILY [facility] Last Admin: 05/13/18 09:32 Dose: 60 mg Labetalol HCl (Trandate) 300 mg PO Q8 [facility] Last Admin: 05/13/18 05:15 Dose: Not Given Lorazepam (Ativan) 0.5 mg PO Q8H PRN; Protocol PRN Reason: Anxiety Last Admin: 05/12/18 23:03 Dose: 0.5 mg Metoclopramide HCl (Reglan) 5 mg PO ACHS [facility] Last Admin: 05/13/18 08:58 Dose: 5 mg Metronidazole (Flagyl) 500 mg PO Q8 [facility]; Protocol Stop: 05/21/18 14:01 Last Admin: 05/13/18 05:12 Dose: 500 mg Nifedipine (Procardia Xl) 60 mg PO QPM [facility] Last Admin: 05/12/18 18:20 Dose: 60 mg Ondansetron HCl (Zofran Inj) 4 mg IVP Q4H PRN PRN Reason: Nausea/Vomiting Pantoprazole Sodium (Protonix Ec Tab) 20 mg PO ACB [facility] Last Admin: 05/13/18 08:58 Dose: 20 mg Simethicone (Mylicon Chew Tab) 80 mg PO PCHS PRN PRN Reason: GI distress Vitamin B Complex/Vit C/Folic Acid (Nephro-Hol[place]) 1 tab PO 0800 [facility] Last Admin: 05/13/18 08:57 Dose: 1 tab - Labs Labs: 05/13/18 06:00 05/13/18 06:00 PT 15.0 SECONDS (9.4-12.5) H 05/11/18 13:45 INR 1.30 05/11/18 13:45 APTT 20.4 Seconds (25.1-36.5) L 05/11/18 13:45 - Constitutional Appears: Chronically Ill - Head Exam Head Exam: NORMAL INSPECTION - Neck Exam Neck Exam: absent: Meningismus - Respiratory Exam Respiratory Exam: Decreased Breath Sounds - Cardiovascular Exam Cardiovascular Exam: +S1, +S2 - GI/Abdominal Exam GI & Abdominal Exam: Soft. absent: Tenderness Additional comments: dressings in place Assessment and Plan - Assessment and Plan (Free Text) Plan: Assessment abdominal wall cellulitis with probable infected abdominal mesh; most recent cultures from 05/03/2018 showed Pseudomonas and C. famata S/P small bowel obstruction in this patient with ventral wall hernia, S/P ventral incarcerated hernia repair, adhesiolysis and revision of colostomy S/P acute coronary syndrome with NSTEMI COPD history of VRE UTI history of severe sepsis secondary to left medial thigh abscess, growing Proteus, S/P incision and drainage DM HTN CAD Unresectable rectal cancer S/P chemotherapy and radiation therapy S/P colostomy S/P Port-a-cath placement morbid obesity with BMI 50 obstructive sleep apnea history of pulmonary embolism S/P IVC filter placement Plan continue Cefepime and Flagyl and Mycamine as well as intermittent Vancomycin (day 3) pending repeat abdominal wound cx; follow up further plans of surgery, but apparently the patient has been refusing to have the mesh removed as per other doctors will continue to follow clinically
--- NOTE | 2018-05-14 11:10 | CP.PCM.APN ---
Subjective - Date & Time of Evaluation Date of Evaluation: 05/14/18 Time of Evaluation: 11:07 - Subjective Subjective: pt seen and examined at bedside pt in no acute distress asking about surgical intervention - states she is now agreeable if Dr Stephens will speka with her about her options Review of Systems - Constitutional Constitutional: Lethargy Objective - Vital Signs/Intake and Output Vital Signs (last 24 hours): Temp Pulse Resp BP Pulse Ox 98.3 F 85 22 141/62 97 05/14/18 06:00 05/14/18 09:51 05/14/18 06:00 05/14/18 09:54 05/14/18 06:00 Intake and Output: 05/14/18 05/14/18 06:59 18:59 Intake Total 100 240 Output Total 475 Balance 100 -235 - Medications Medications: Current Medications Acetaminophen (Tylenol 325mg Tab) 650 mg PO Q4H PRN PRN Reason: Pain, Mild (1-3) Albuterol/Ipratropium (Duoneb 3 Mg/0.5 Mg (3 Ml) Ud) 3 ml IH [id number] [facility] Last Admin: 05/14/18 08:59 Dose: Not Given Albuterol/Ipratropium (Duoneb 3 Mg/0.5 Mg (3 Ml) Ud) 3 ml IH Q2H PRN PRN Reason: Shortness of Breath Amlodipine Besylate (Norvasc) 10 mg PO DAILY [facility] Last Admin: 05/14/18 09:54 Dose: 10 mg Apixaban (Eliquis) 2.5 mg PO BID [facility]; Protocol Last Admin: 05/14/18 09:52 Dose: 2.5 mg Arformoterol Tartrate (Brovana) 15 mcg IH [id number] [facility] Last Admin: 05/14/18 08:59 Dose: Not Given Armodafinil (Nuvigil 150 Mg Tab) 150 mg PO DAILY [facility] Last Admin: 05/14/18 09:54 Dose: 150 mg Aspirin (Ecotrin) 81 mg PO DAILY [facility] Last Admin: 05/14/18 09:52 Dose: 81 mg Atorvastatin Calcium (Lipitor) 20 mg PO HS [facility] Last Admin: 05/13/18 22:03 Dose: 20 mg Budesonide (Pulmicort Respules) 0.5 mg IH [id number] [facility] Last Admin: 05/14/18 08:59 Dose: Not Given Clonazepam (Klonopin) 1 mg PO HS [facility]; Protocol Stop: 05/19/18 23:59 Clonidine HCl (Catapres-Tts3 0.3 Mg/24 Hr) 1 patch TD Q7D@1000 JR Darbepoetin Timothy (Aranesp) 150 mcg SC QWK [facility] Docusate Sodium (Colace) 100 mg PO TID [facility] Last Admin: 05/14/18 09:51 Dose: 100 mg Ergocalciferol (Drisdol 50,000 Intl Units Cap) 1 cap PO Q7D [facility] Last Admin: 05/11/18 23:12 Dose: 1 cap Ferrous Gluconate (Fergon) 324 mg PO DAILY [facility] Last Admin: 05/14/18 09:52 Dose: 324 mg Furosemide (Lasix) 40 mg PO DAILY [facility] Last Admin: 05/14/18 09:50 Dose: 40 mg Hydralazine HCl (Apresoline) 100 mg PO TID [facility] Last Admin: 05/14/18 09:51 Dose: 100 mg Hydromorphone HCl (Dilaudid) 2 mg PO Q4 PRN PRN Reason: Pain Last Admin: 05/14/18 05:53 Dose: 2 mg Micafungin Sodium 100 mg/ (Sodium Chloride) 100 mls @ 100 mls/hr IV DAILY [facility]; Protocol Stop: 05/20/18 22:00 Last Admin: 05/14/18 09:53 Dose: 100 mls/hr Cefepime HCl (Maxipime 1gm) 1 gm in 100 mls @ 100 mls/hr IVPB Q12 [facility]; Protocol Stop: 05/20/18 22:16 Last Admin: 05/13/18 22:07 Dose: 100 mls/hr Insulin Detemir (Levemir) 20 unit SC [facility] Last Admin: 05/13/18 22:07 Dose: Not Given Insulin Human Regular (Humulin R Low) 0 units SC [facility]; Protocol Last Admin: 05/14/18 07:35 Dose: Not Given Isosorbide Mononitrate (Imdur) 60 mg PO DAILY [facility] Last Admin: 05/14/18 09:51 Dose: 60 mg Labetalol HCl (Trandate) 300 mg PO Q8 [facility] Last Admin: 05/14/18 05:46 Dose: 300 mg Magnesium Oxide (Mag-Ox) 400 mg PO BID [facility] Stop: 05/14/18 23:59 Last Admin: 05/14/18 09:53 Dose: 400 mg Metoclopramide HCl (Reglan) 5 mg PO ACHS [facility] Last Admin: 05/14/18 07:04 Dose: 5 mg Metronidazole (Flagyl) 500 mg PO Q8 [facility]; Protocol Stop: 05/21/18 14:01 Last Admin: 05/14/18 05:47 Dose: 500 mg Nifedipine (Procardia Xl) 60 mg PO QPM [facility] Last Admin: 05/13/18 18:04 Dose: 60 mg Nystatin (Nystop Topical Powder) 0 gm TOP TID [facility] Ondansetron HCl (Zofran Inj) 4 mg IVP Q4H PRN PRN Reason: Nausea/Vomiting Pantoprazole Sodium (Protonix Ec Tab) 20 mg PO ACB [facility] Last Admin: 05/14/18 07:03 Dose: 20 mg Simethicone (Mylicon Chew Tab) 80 mg PO PCHS PRN PRN Reason: GI distress Vitamin B Complex/Vit C/Folic Acid (Nephro-Hol[place]) 1 tab PO 0800 [facility] Last Admin: 05/14/18 07:37 Dose: 1 tab - Labs Labs: 05/14/18 07:30 05/14/18 07:30 PT 15.0 SECONDS (9.4-12.5) H 05/11/18 13:45 INR 1.30 05/11/18 13:45 APTT 20.4 Seconds (25.1-36.5) L 05/11/18 13:45 - Constitutional Appears: No Acute Distress, Older Than Stated Age - Head Exam Head Exam: NORMAL INSPECTION - Eye Exam Pupil Exam: PERRL - Neck Exam Neck Exam: Normal Inspection - Respiratory Exam Respiratory Exam: Decreased Breath Sounds - Cardiovascular Exam Cardiovascular Exam: +S1, +S2 - GI/Abdominal Exam GI & Abdominal Exam: Soft, Tenderness Additional comments: obese, multiple dressings to abd wall , colostomy bag with brown stools - Extremities Exam Extremities Exam: Normal Capillary Refill - Neurological Exam Neurological Exam: Alert, Awake - Psychiatric Exam Psychiatric exam: Flat Affect - Skin Skin Exam: Dry, Warm Additional comments: colostomy bag in plaace, sacrum with fungal areas, redness to thighs and bottom Assessment and Plan - Assessment and Plan (Free Text) Plan: Microbiology 05/11/18 19:35 Blood Blood Culture - Preliminary NO GROWTH AFTER 48 HOURS 05/12/18 22:54 Abdomen Gram Stain - Final 05/11/18 13:45 Blood Blood Culture - Preliminary NO GROWTH AFTER 48 HOURS 05/11/18 15:39 Urine,Catheterized Urine Culture - Final Yeast Species 05/11/18 13:28 CHEST PORTABLE [RAD] 05/11/18 13:33 ABD & PELVIS W/O PO OR IV CONT [CT] A/P 62 yr old female with pmh sig for htn, hld, unresectable colon ca sbo s/p abd surgery 04/14/18 with probable infection involvign the mesh placed during the surgery now brought to the Er from [facility] for lethargy and fever now being evaluated by ID for abd wall cellulitis with recent cultures may 03 showing pseudomons and c. famata, with additonal BC pending. UC showing yeast species - on iv macufangin Discuss with ID, plan to continue Iv antibiotics pending all culture results Discuss with CM disposition options. pt from [facility] but denied return per Sw not es spoke to Dr morillo and made him aware of this. he will come and speak to pt today now that she is asking about surgical intervention that she previously refused for infected abd mesh. will order p.t BPCI/TIC - BPCIA/TIC Educated pt/family on BPCIA/CIR/Med to Bed Programs: Yes Flyers given, including CMS Beneficiary letter: Yes
[2018-05-14] MEDS: Cefepime 1gm in NS 100ml 1 GM/100 ML BAG IVPB SCH ×2 (11:18→23:03)
--- NOTE | 2018-05-14 12:17 | CP.PCM.PN ---
Subjective - Date & Time of Evaluation Date of Evaluation: 05/14/18 Time of Evaluation: 12:14 - Subjective Subjective: Nephrology Consultation Note: Assessment: ARF/CKD 3 stable SBO s/p ex lap ? MESH infection left adrenal adenoma, Rt renal hyperdense cyst chronic hypercapnic respi failure Diabetic chronic Kidney Disease (E11.22) Hypertensive Chronic Kidney Disease (I12.9) Chronic Kidney Disease (N18.3) Stage 3 with 2.4 gm proteinuria (R80.9) likely due to DM/HTN/Obesity Anemia Vit D def morbid obesity, CAD s/p stent, COPD/SUMMER, rectal ca s/p colostomy hypomag Plan No acute need for renal replacement therapy at this time. HTN control on multiple meds; Monitor Input/Output, daily weights and renal function with basic metabolic panel PRBC as needed. d/w heme and okay to use KAVYA from heme perspective. on weekly aransep supplement lytes as needed lasix 40 mg oral daily. Adrenal adenoma work up with plasma renin/aldosterone, plasma metanephrine NEGATIVE. outpt 1 mg dexa suppression test repeat renal sono in 6 months to assess her Rt renal cyst Dose meds/antibiotics for reduced GFR. Avoid fleets enema/magnesium based laxatives. Avoid nephrotoxins/NSAIDs/ iodinated contrast (unless needed emergently) Glycemic control Further work up/management as per primary team Thanks for allowing me to participate in care of your patient. Will follow patient with you. Please call if any Qs. had d/w team Dr Dae Dawn Office: [phone] Chief Complaint;AMS Reason for consult: Acute Kidney Injury, CKD 3 HPI: Pt is a 62 F with hx of diabetes Mellitus (15 years), hypertension (years), CKD 3 with baseline cr 1.2-1.3 recently admitted after complicated abdominal surgery that represents w/ abdominal pain. Was recommended to get mesh removed last admission but refusing and still refusing per surgical service. She does not know why she is in the hospital. She denies n/v. She endorses reduced po intake. ROS: a full detailed ROS is negative except as in my hpi Physical Examination: General Appearance: comfortable,morbidly obese. Vitals reviewed and noted as below Head; Atraumatic, normocephalic ENT: dry mucosa EYES: Pupils are equal, round and reactive to light accommodation. Eye muscles and extraocular movement intact. Sclera is anicteric. Neck; supple no lymphadenopathy, no thyromegaly or bruit Lungs: Normal respiratory rate/effort. Breath sounds bilateral equal, diminished at bases but overall limited exam due to her obesity Heart: normal rate. s1s2 normal. No rub or gallop. Extremities: 1+ edema, non pitting lymphedema as well. No varicose veins Neurological: Patient is much more awake follwo commands Skin: Warm and dry. Normal turgor. No rash. Palpitation: Normal elasticity for age Abdomen: Abdomen is + colostomy Psych: nml affect MSK: no joint tenderness or swelling. Digits and nails normal, no deformity : kidney or bladder not palpable Labs/imaging reviewed. Past medical history, past surgical history, family history, social history, allergy reviewed and noted as below Family hx: no hx of CKD. Rest non-contributory Objective - Vital Signs/Intake and Output Vital Signs (last 24 hours): Temp Pulse Resp BP Pulse Ox 98.4 F 76 18 143/61 97 05/14/18 11:45 05/14/18 11:45 05/14/18 11:45 05/14/18 11:45 05/14/18 06:00 Intake and Output: 05/14/18 05/14/18 06:59 18:59 Intake Total 100 240 Output Total 475 Balance 100 -235 - Medications Medications: Current Medications Acetaminophen (Tylenol 325mg Tab) 650 mg PO Q4H PRN PRN Reason: Pain, Mild (1-3) Albuterol/Ipratropium (Duoneb 3 Mg/0.5 Mg (3 Ml) Ud) 3 ml IH [id number] [facility] Last Admin: 05/14/18 08:59 Dose: Not Given Albuterol/Ipratropium (Duoneb 3 Mg/0.5 Mg (3 Ml) Ud) 3 ml IH Q2H PRN PRN Reason: Shortness of Breath Amlodipine Besylate (Norvasc) 10 mg PO DAILY [facility] Last Admin: 05/14/18 09:54 Dose: 10 mg Apixaban (Eliquis) 2.5 mg PO BID [facility]; Protocol Last Admin: 05/14/18 09:52 Dose: 2.5 mg Arformoterol Tartrate (Brovana) 15 mcg IH [id number] [facility] Last Admin: 05/14/18 08:59 Dose: Not Given Armodafinil (Nuvigil 150 Mg Tab) 150 mg PO DAILY [facility] Last Admin: 05/14/18 09:54 Dose: 150 mg Aspirin (Ecotrin) 81 mg PO DAILY [facility] Last Admin: 05/14/18 09:52 Dose: 81 mg Atorvastatin Calcium (Lipitor) 20 mg PO HS [facility] Last Admin: 05/13/18 22:03 Dose: 20 mg Budesonide (Pulmicort Respules) 0.5 mg IH [id number] [facility] Last Admin: 05/14/18 08:59 Dose: Not Given Clonazepam (Klonopin) 1 mg PO HS [facility]; Protocol Stop: 05/19/18 23:59 Clonidine HCl (Catapres-Tts3 0.3 Mg/24 Hr) 1 patch TD Q7D@1000 JR Darbepoetin Timothy (Aranesp) 150 mcg SC QWK [facility] Docusate Sodium (Colace) 100 mg PO TID [facility] Last Admin: 05/14/18 09:51 Dose: 100 mg Ergocalciferol (Drisdol 50,000 Intl Units Cap) 1 cap PO Q7D [facility] Last Admin: 05/11/18 23:12 Dose: 1 cap Ferrous Gluconate (Fergon) 324 mg PO DAILY [facility] Last Admin: 05/14/18 09:52 Dose: 324 mg Furosemide (Lasix) 40 mg PO DAILY [facility] Last Admin: 05/14/18 09:50 Dose: 40 mg Hydralazine HCl (Apresoline) 100 mg PO TID [facility] Last Admin: 05/14/18 09:51 Dose: 100 mg Hydromorphone HCl (Dilaudid) 2 mg PO Q4 PRN PRN Reason: Pain Last Admin: 05/14/18 05:53 Dose: 2 mg Micafungin Sodium 100 mg/ (Sodium Chloride) 100 mls @ 100 mls/hr IV DAILY [facility]; Protocol Stop: 05/20/18 22:00 Last Admin: 05/14/18 09:53 Dose: 100 mls/hr Cefepime HCl (Maxipime 1gm) 1 gm in 100 mls @ 100 mls/hr IVPB Q12 [facility]; Protocol Stop: 05/20/18 22:16 Last Admin: 05/14/18 11:18 Dose: 100 mls/hr Insulin Detemir (Levemir) 20 unit SC [facility] Last Admin: 05/13/18 22:07 Dose: Not Given Insulin Human Regular (Humulin R Low) 0 units SC [facility]; Protocol Last Admin: 05/14/18 12:09 Dose: Not Given Isosorbide Mononitrate (Imdur) 60 mg PO DAILY [facility] Last Admin: 05/14/18 09:51 Dose: 60 mg Labetalol HCl (Trandate) 300 mg PO Q8 [facility] Last Admin: 05/14/18 05:46 Dose: 300 mg Magnesium Oxide (Mag-Ox) 400 mg PO BID [facility] Stop: 05/14/18 23:59 Last Admin: 05/14/18 09:53 Dose: 400 mg Metoclopramide HCl (Reglan) 5 mg PO [facility] Last Admin: 05/14/18 12:10 Dose: 5 mg Metronidazole (Flagyl) 500 mg PO Q8 [facility]; Protocol Stop: 05/21/18 14:01 Last Admin: 05/14/18 05:47 Dose: 500 mg Nifedipine (Procardia Xl) 60 mg PO QPM [facility] Last Admin: 05/13/18 18:04 Dose: 60 mg Nystatin (Nystop Topical Powder) 0 gm TOP TID [facility] Ondansetron HCl (Zofran Inj) 4 mg IVP Q4H PRN PRN Reason: Nausea/Vomiting Pantoprazole Sodium (Protonix Ec Tab) 20 mg PO ACB [facility] Last Admin: 05/14/18 07:03 Dose: 20 mg Simethicone (Mylicon Chew Tab) 80 mg PO PCHS PRN PRN Reason: GI distress Vitamin B Complex/Vit C/Folic Acid (Nephro-Holland) 1 tab PO 0800 [facility] Last Admin: 05/14/18 07:37 Dose: 1 tab - Labs Labs: 05/14/18 07:30 05/14/18 07:30 PT 15.0 SECONDS (9.4-12.5) H 05/11/18 13:45 INR 1.30 05/11/18 13:45 APTT 20.4 Seconds (25.1-36.5) L 05/11/18 13:45
[2018-05-14] MEDS: Darbepoetin Alfa 100 mcg/ml Inj SC SCH (12:26)
--- NOTE | 2018-05-14 12:45 | PN ---
PULMONARY PROGRESS NOTE DATE: 05/14/2018 REFERRING PHYSICIAN: Elroy Florian MD SUBJECTIVE: The patient is lying down in bed. No overnight events reported. The patient does report that she used BiPAP last night. No headache, rhinitis, cough, shortness of breath, chest pain, nausea, vomiting, diarrhea, leg pain or leg swelling reported. The patient does report mild abdominal pain to surgical site. OBJECTIVE GENERAL: No acute distress. VITAL SIGNS: Blood pressure 141/62, pulse 85, temperature 98.3 and oxygen saturation 97% on nasal cannula. HEENT: Moist mucous membranes. Crowded airway. Mallampati score of 4. NECK: Supple. No JVD. Short and thick. LUNGS: Few rhonchi bilaterally. CARDIOVASCULAR: S1 and S2 audible. ABDOMEN: Obese. Dressing to surgical site, has colostomy bag. Positive bowel sounds. Tender on palpation. EXTREMITIES: A +1 lower extremity edema bilaterally. NEUROLOGIC: Awake, alert and verbal. Follow simple commands. LABORATORY DATA: Reviewed. WBC 6.2, RBC 2.90, hemoglobin 8, hematocrit 27.1, and platelets 330. Sodium 139, potassium 5.0, chloride 108, carbon dioxide 30, anion gap 6, BUN 53, creatinine 1.5, GFR 35, random glucose 133, calcium 8.0, phosphorus 3.8 and magnesium 1.8. MEDICATIONS: Reviewed. Tylenol 650 mg p.o. every 4 hours p.r.n. mild pain, DuoNeb 3 mL inhalation every 2 hours p.r.n., DuoNeb 3 mL inhalation every 6 hours, Norvasc 10 mg p.o. daily, Eliquis 2.5 mg p.o. twice a day, Brovana 15 mcg every 12 hours, Nuvigil 150 mg by p.o. daily, Ecotrin 81 mg p.o. daily, Lipitor 20 mg p.o. at bedtime, Pulmicort 0.5 mg inhalation every 12 hours, cefepime 1 g every 12 hours, Klonopin 1 mg at bedtime, clonidine 0.3 mg patch daily, Aranesp 150 mg subcutaneous weekly, Colace 100 mg three times a day, ergocalciferol 50,000 units one cap every 7 days, ferrous gluconate 324 mg daily, Lasix 40 mg daily, hydralazine 100 mg three times a day, Dilaudid 2 mg every 4 hours p.r.n., Levemir 20 units subcutaneous at bedtime, Humulin R sliding scale, isosorbide mononitrate 60 mg p.o. daily, labetalol 300 mg every 8 hours, magnesium oxide 400 mg twice a day, Reglan 5 mg a.c. and at bedtime, Flagyl 500 mg every 8 hours, micafungin 100 mg daily, nifedipine 60 mg in the evening, nystatin topically three times a day to affected area, Zofran 4 mg every 4 hours p.r.n., Protonix 20 mg, simethicone 80 mg p.o. at bedtime p.r.n. and Nephro-Holland one tab daily. IMPRESSION AND PLAN: Status post laparotomy with small-bowel obstruction with hernia repair and relocation of colostomy, hypoventilation syndrome with CO2 retention, hypoxia requiring non-invasive ventilation, history of pulmonary embolism and deep venous thrombosis in the remote past, diabetes, hypertension, chronic obstructive lung disease, morbid obesity, recurrent abdominal pain, may have mesh infection and pulmonary hypertension. Continue to follow up with surgical team, follow up with Infectious Disease. Continue antibiotic therapy as per Infectious Disease. Continue bilevel positive airway pressure use at bedtime. Continue inhaled bronchodilators, gastric prophylaxis. Continue anticoagulation therapy. Continue daytime stimulant as the patient tends to have daytime hypersomnia, pressure ulcer precaution, sleep apnea precaution, head of bed elevated to 45 degrees. This patient was seen and examined with Dr. Ayala. Discussed assessment and plan as described above. Thank you for this consult and we will follow with you. Breezy Schafer APN Pamela Ayala MD
[2018-05-14] MEDS: Nystatin 100,000 Units/gm Topical Pow(15 gm) TOP SCH ×2 (13:44→18:09)
--- NOTE | 2018-05-14 14:02 | PN ---
DATE: 05/14/2018 REASON FOR CONSULTATION: Follow up cardiac evaluation, admitted with altered mental status, history of recent abdominal surgery, history of coronary artery disease. The patient denies any chest pain, shortness of breath or any palpitations. Still complaining of mild abdominal pain. PHYSICAL EXAMINATION: GENERAL: The patient not in apparent distress. VITAL SIGNS: Temperature afebrile, heart rate 85, blood pressure 141/62. HEENT: PERRLA. Extraocular muscles are intact. NECK: Supple. No carotid bruits. No thyromegaly. CHEST: Clear to auscultation. HEART: S1 and S2, regular. ABDOMEN: Soft. EXTREMITIES: Clubbing and cyanosis negative. LABORATORY DATA: Blood workup as follows: WBC 6.8, hemoglobin 8, hematocrit 27.1, platelet count 330. Chemistry shows sodium 113, potassium 5, chloride 108, carbon dioxide 30, anion gap 6, BUN 50, creatinine 1.5. IMPRESSION: A 62-year-old morbidly obese female with past medical history for diabetes, hypertension, hyperlipidemia, coronary artery disease, status post stent in the past, history of deep venous thrombosis, pulmonary embolism, status post inferior vena cava filter, on anticoagulation, history of rectal cancer inoperable, status post chemotherapy, status post radiation, status post colostomy, recently had small bowel obstruction, status post exploratory laparotomy and lysis of adhesions, complained of abdominal pain. On admission, the patient was admitted with altered mental status, borderline troponin positive 0.15 in face of the creatinine clearance 35 and elevated BNP most likely secondary to demand supply mismatch, no evidence of ischemia or chest pain. The patient is asymptomatic from Cardiology point of view though troponin is intermediate range to mild positive with decreased renal function, possibly secondary to congestive heart failure. RECOMMENDATIONS: Continue aggressive medical treatment. Continue hydralazine p.r.n., avoid nephrotoxic medication, continue aspirin, continue Eliquis, continue isosorbide mononitrate, continue Lasix and continue atorvastatin. Continue broad-spectrum antibiotics as per Infectious Disease. Overall, the patient's critical long-term prognosis is guarded because of underlying comorbidity and morbid obesity with the increased body mass index of 55.3. We will follow with you. Currently, the patient is asymptomatic from cardiology point of view. Continue current medical treatment. No further invasive cardiac workup is planned at this time. Creatinine is 1.5 and creatinine clearance 33 mL an hour. Thank you Dr. Florian. Pamela Guerrero MD
[2018-05-14] MEDS: NIFEdipine 60 mg ER Tab PO SCH (18:09)
[2018-05-14] MEDS: Insulin Detemir 100 units/ml Vial (Levemir) SC SCH (22:59)
[2018-05-15] MEDS: Albuterol-Ipratrop 3 mg / 0.5 (3 ml) UD IH SCH ×4 (01:10→21:00)
[2018-05-15] MEDS: Arformoterol 15 mcg/2 ml Inh Sol IH SCH ×2 (07:38→21:00)
[2018-05-15] MEDS: Budesonide 0.5 mg/2 ml Inhal Susp UD IH SCH ×2 (07:38→21:00)
[2018-05-15] MEDS: Multivitamin Vitamin B Complex (Nephro-Vite) Tab PO SCH (08:19)
[2018-05-15] MEDS: Pantoprazole 20 mg EC Tab PO SCH (08:19)
[2018-05-15] MEDS: Insulin Reg-LOW-Coverage SC SCH ×4 (08:20→22:02)
[2018-05-15] MEDS: Cefepime 1gm in NS 100ml 1 GM/100 ML BAG IVPB SCH ×2 (09:43→22:24)
[2018-05-15] MEDS: Nystatin 100,000 Units/gm Topical Pow(15 gm) TOP SCH ×3 (09:47→17:41)
--- NOTE | 2018-05-15 10:36 | CP.PCM.APN ---
Subjective - Date & Time of Evaluation Date of Evaluation: 05/15/18 Time of Evaluation: 10:00 - Subjective Subjective: pt seen and examined at bedside , surgical residents at bedside ,no need for further surg intervention at this time, improving pt reports no symptoms Review of Systems - Review of Systems Review of Systems: negative Objective - Vital Signs/Intake and Output Vital Signs (last 24 hours): Temp Pulse Resp BP Pulse Ox 98.5 F 71 20 129/54 L 99 05/15/18 06:00 05/15/18 09:44 05/15/18 06:00 05/15/18 09:45 05/15/18 06:00 Intake and Output: 05/15/18 05/15/18 06:59 18:59 Intake Total 240 Output Total 650 Balance -410 - Medications Medications: Current Medications Acetaminophen (Tylenol 325mg Tab) 650 mg PO Q4H PRN PRN Reason: Pain, Mild (1-3) Albuterol/Ipratropium (Duoneb 3 Mg/0.5 Mg (3 Ml) Ud) 3 ml IH [id number] [facility] Last Admin: 05/15/18 07:38 Dose: Not Given Albuterol/Ipratropium (Duoneb 3 Mg/0.5 Mg (3 Ml) Ud) 3 ml IH Q2H PRN PRN Reason: Shortness of Breath Amlodipine Besylate (Norvasc) 10 mg PO DAILY [facility] Last Admin: 05/15/18 09:45 Dose: 10 mg Apixaban (Eliquis) 2.5 mg PO BID [facility]; Protocol Last Admin: 05/15/18 09:45 Dose: 2.5 mg Arformoterol Tartrate (Brovana) 15 mcg IH [id number] [facility] Last Admin: 05/15/18 07:38 Dose: Not Given Armodafinil (Nuvigil 150 Mg Tab) 150 mg PO DAILY [facility] Last Admin: 05/15/18 09:46 Dose: 150 mg Aspirin (Ecotrin) 81 mg PO DAILY [facility] Last Admin: 05/15/18 09:45 Dose: 81 mg Atorvastatin Calcium (Lipitor) 20 mg PO HS [facility] Last Admin: 05/14/18 23:03 Dose: 20 mg Budesonide (Pulmicort Respules) 0.5 mg IH [id number] [facility] Last Admin: 05/15/18 07:38 Dose: Not Given Clonazepam (Klonopin) 1 mg PO HS [facility]; Protocol Stop: 05/19/18 23:59 Last Admin: 05/14/18 23:02 Dose: 1 mg Clonidine HCl (Catapres-Tts3 0.3 Mg/24 Hr) 1 patch TD Q7D@1000 [facility] Darbepoetin Timothy (Aranesp) 150 mcg SC QWK [facility] Last Admin: 05/14/18 12:26 Dose: 150 mcg Docusate Sodium (Colace) 100 mg PO TID [facility] Last Admin: 05/15/18 09:45 Dose: 100 mg Ergocalciferol (Drisdol 50,000 Intl Units Cap) 1 cap PO Q7D [facility] Last Admin: 05/11/18 23:12 Dose: 1 cap Ferrous Gluconate (Fergon) 324 mg PO DAILY [facility] Last Admin: 05/15/18 09:45 Dose: 324 mg Furosemide (Lasix) 40 mg PO DAILY [facility] Last Admin: 05/15/18 09:44 Dose: 40 mg Hydralazine HCl (Apresoline) 100 mg PO TID [facility] Last Admin: 05/15/18 09:44 Dose: 100 mg Hydromorphone HCl (Dilaudid) 2 mg PO Q4 PRN PRN Reason: Pain Last Admin: 05/14/18 23:03 Dose: 2 mg Micafungin Sodium 100 mg/ (Sodium Chloride) 100 mls @ 100 mls/hr IV DAILY [facility]; Protocol Stop: 05/20/18 22:00 Last Admin: 05/14/18 09:53 Dose: 100 mls/hr Cefepime HCl (Maxipime 1gm) 1 gm in 100 mls @ 100 mls/hr IVPB Q12 [facility]; Protocol Stop: 05/20/18 22:16 Last Admin: 05/15/18 09:43 Dose: 100 mls/hr Insulin Detemir (Levemir) 20 unit SC HS [facility] Last Admin: 05/14/18 22:59 Dose: Not Given Insulin Human Regular (Humulin R Low) 0 units SC [facility]S [facility]; Protocol Last Admin: 05/15/18 08:20 Dose: Not Given Isosorbide Mononitrate (Imdur) 60 mg PO DAILY [facility] Last Admin: 05/15/18 09:46 Dose: 60 mg Labetalol HCl (Trandate) 300 mg PO Q8 [facility] Last Admin: 05/15/18 06:59 Dose: 300 mg Metoclopramide HCl (Reglan) 5 mg PO ACHS [facility] Last Admin: 05/15/18 08:19 Dose: 5 mg Metronidazole (Flagyl) 500 mg PO Q8 [facility]; Protocol Stop: 05/21/18 14:01 Last Admin: 05/15/18 06:59 Dose: 500 mg Nifedipine (Procardia Xl) 60 mg PO QPM [facility] Last Admin: 05/14/18 18:09 Dose: 60 mg Nystatin (Nystop Topical Powder) 0 gm TOP TID [facility] Last Admin: 05/15/18 09:47 Dose: 1 applic Ondansetron HCl (Zofran Inj) 4 mg IVP Q4H PRN PRN Reason: Nausea/Vomiting Pantoprazole Sodium (Protonix Ec Tab) 20 mg PO ACB [facility] Last Admin: 05/15/18 08:19 Dose: 20 mg Simethicone (Mylicon Chew Tab) 80 mg PO PCHS PRN PRN Reason: GI distress Vitamin B Complex/Vit C/Folic Acid (Nephro-Holland) 1 tab PO 0800 [facility] Last Admin: 05/15/18 08:19 Dose: 1 tab - Labs Labs: 05/14/18 07:30 05/14/18 07:30 PT 15.0 SECONDS (9.4-12.5) H 05/11/18 13:45 INR 1.30 05/11/18 13:45 APTT 20.4 Seconds (25.1-36.5) L 05/11/18 13:45 Assessment and Plan - Assessment and Plan (Free Text) Plan: Microbiology 05/11/18 19:35 Blood Culture - Preliminary Blood NO GROWTH AFTER 3 DAYS 05/11/18 13:45 Blood Culture - Preliminary Blood NO GROWTH AFTER 3 DAYS Microbiology 05/11/18 19:35 Blood Culture - Preliminary Blood NO GROWTH AFTER 3 DAYS 05/11/18 13:45 Blood Culture - Preliminary Blood NO GROWTH AFTER 3 DAYS 62 yr old female with pmh sig for htn, hld, unresectable colon ca sbo s/p abd surgery 04/14/18 with probable infection involvign the mesh placed during the surgery now brought to the [facility] from [facility] for lethargy and fever now being evaluated by ID for abd wall cellulitis with recent cultures may 03 showing pseudomons and c. famata, with additonal BC pending. UC showing yeast species - on iv macufangin Discuss with ID, plan to continue Iv antibiotics pending abd wound culture discuss with surgical team - no plan for surgical intervention at this time as pt status improving from surgical standpoint. per sw and cm notes pt not accepted to return to [facility] will continue to follow BPCI/TIC - BPCIA/TIC Flyers given, including CMS Beneficiary letter: Yes Pt/family verbalized understanding & agreed to program: Yes
[2018-05-15] MEDS: Micafungin 100 MG in Sodium Chloride 0.9% 100 ML IV SCH (12:31)
--- NOTE | 2018-05-15 12:54 | PN ---
PULMONARY PROGRESS NOTE DATE: 05/15/2018 REFERRING PHYSICIAN: Dr. Florian SUBJECTIVE: The patient is lying in bed. No overnight events reported. Reports, she did not use BiPAP last night. Reports that she is sleepy and tired today. No headache, rhinitis, cough, shortness of breath, chest pain, nausea, vomiting, diarrhea, dysuria, leg pain or leg swelling reported. Does report abdominal pain and generalized body aches. States she does not want pain medication at this time, we will wait for after she gets washed up. OBJECTIVE: GENERAL: No acute distress. VITAL SIGNS: Blood pressure 129/54, pulse 71, temperature is 98.5 and pulse ox 99%. HEENT: Moist mucous membranes. Crowded airway. Mallampati score of 4. NECK: Supple. No JVD. Short and thick. LUNGS: Clear bilaterally. CARDIOVASCULAR: S1 and S2 audible. ABDOMEN: Obese. Dressing to surgical site, has colostomy bag with watery stool. Positive bowel sounds. Tender on palpation. EXTREMITIES: +1 edema, lower extremities bilaterally. NEUROLOGIC: Awake, alert, and verbal. Follow simple commands. LABORATORY DATA: Reviewed. No new labs since yesterday. MEDICATIONS: Reviewed. Tylenol 650 mg every 4 hours for mild pain p.r.n., DuoNeb 3 mL inhalation every 2 hours p.r.n., DuoNeb 3 mL inhalation every 6 hours, Norvasc 10 mg p.o. daily, Eliquis 2.5 mg p.o. twice a day, Brovana 15 mcg inhalation every 12 hours, Nuvigil 150 mg p.o. daily, aspirin 81 mg p.o. daily, Lipitor 20 mg p.o. at bedtime, Pulmicort 0.5 mg inhalation every 12 hours, cefepime 1 g every 12 hours, Klonopin 1 mg at bedtime, clonidine patch 0.3 mg every 7 days, Aranesp 150 mcg weekly, Colace 100 mg three times a day, ergocalciferol 50,000 units every 7 days, ferrous gluconate 324 mg p.o. daily, Lasix 40 mg p.o. daily, hydralazine 100 mg p.o. times a day, Dilaudid 2 mg every 4 hours p.r.n., Levemir 20 units at bedtime, Humulin R sliding scale, isosorbide mononitrate 60 mg p.o. daily, labetalol 300 mg every 8 hours, Reglan 5 mg p.o. a.c. and at bedtime, Flagyl 500 mg every 8 hours, micafungin 100 mg daily, nifedipine 60 mg daily, nystatin topically to affected area three times a day, Zofran 4 mg every 4 hours as needed, Protonix 20 mg daily, simethicone 80 mg as needed and Nephro-Holland one tab daily. IMPRESSION AND PLAN: Status post laparotomy with small-bowel obstruction with hernia repair and relocation of colostomy, hypoventilation syndrome with CO2 retention, hypoxia requiring non-invasive ventilation, history of pulmonary embolism and deep venous thrombosis in the remote past, diabetes, chronic obstructive lung disease, hypertension, morbid obesity, recurrent abdominal pain, pulmonary hypertension, may have mesh infection, wound culture preliminary shows yeast species, the patient on micafungin. Continue to followup with Infectious Disease. Continue to followup with surgical team and antibiotics as per Infectious Disease. Continue bilevel positive airway pressure use at bedtime, discussed with the patient that using bilevel positive airway pressure at night may help with daytime hypersomnia. Continue daytime stimulant due to daytime hypersomnia. Continue anticoagulation therapy, inhaled bronchodilators, gastric prophylaxis, pressure ulcer precautions, sleep apnea precaution and head of bed elevated at 45 degrees. This patient was seen and examined with Dr. Ayala. Discussed assessment and plan as described above. Thank you for this consult and we will follow with you. Breezy Schafer APN Pamela Ayala MD ANT
--- NOTE | 2018-05-15 13:12 | PN ---
DATE: 05/15/2018 REASON FOR CONSULTATION: Followup, cardiac evaluation, admitted with altered mental status, history of recent abdominal surgery, history of coronary artery disease status post stent in the past. Complains of abdominal pain. SUBJECTIVE: Not in apparent distress. Complains of mild abdominal pain. OBJECTIVE: Lying flat in the bed. PHYSICAL EXAMINATION: VITAL SIGNS: Temperature afebrile, heart rate 71, blood pressure 141/56. HEENT: PERRLA. Intact. NECK: Supple. No carotid bruit or thyromegaly. CHEST: Clear to auscultation. HEART: S1 and S2 regular. ABDOMEN: Soft. EXTREMITIES: Clubbing, cyanosis negative. LABORATORY DATA: Blood workup: WBC 6.8, hemoglobin 8, hematocrit 27.1, platelet count 330. Chemistry showed sodium 113, potassium 5, chloride 108, carbon dioxide 30, anion gap of , BUN 53, creatinine 1.5. IMPRESSION: A 62-year-old female morbidly obese with past medical history significant for coronary artery disease, deep vein thrombosis, pulmonary embolism, history of inferior vena cava filter, on anticoagulation, history of cancer, status post colostomy, status post chemotherapy, status post recently small bowel obstruction, status post exploratory laparotomy, admitted with altered mental status and abdominal pain, borderline troponin positive, asymptomatic. RECOMMENDATION: In view of asymptomatology, renal insufficiency, creatine clearance 30 mL an hour, asymptomatic leak of troponin probably due to medically in the phase of renal insufficiency, maximum troponin is 0.15 and glomerular filtration rate was 30 mL, creatinine 1.4, treat medically, asymptomatic. Continue surgical evaluation and followup, wound debridement, antibiotic, medical treatment. Thank you Dr. Lewis/Dr. Florian for providing us the opportunity to take in care of Ismael Vasquez. Pamela Guerrero MD
--- NOTE | 2018-05-15 15:38 | CP.PCM.PN ---
Subjective - Date & Time of Evaluation Date of Evaluation: 05/15/18 Time of Evaluation: 15:38 - Subjective Subjective: Nephrology Consultation Note: Assessment: ARF/CKD 3 stable SBO s/p ex lap ? MESH infection left adrenal adenoma, Rt renal hyperdense cyst chronic hypercapnic respi failure Diabetic chronic Kidney Disease (E11.22) Hypertensive Chronic Kidney Disease (I12.9) Chronic Kidney Disease (N18.3) Stage 3 with 2.4 gm proteinuria (R80.9) likely due to DM/HTN/Obesity Anemia Vit D def morbid obesity, CAD s/p stent, COPD/SUMMER, rectal ca s/p colostomy hypomag Plan No acute need for renal replacement therapy at this time. HTN control on multiple meds; Monitor Input/Output, daily weights and renal function with basic metabolic panel PRBC as needed. d/w heme and okay to use KAVYA from heme perspective. on weekly aransep supplement lytes as needed lasix 40 mg oral daily. Adrenal adenoma work up with plasma renin/aldosterone, plasma metanephrine NEGATIVE. outpt 1 mg dexa suppression test repeat renal sono in 6 months to assess her Rt renal cyst Dose meds/antibiotics for reduced GFR. Avoid fleets enema/magnesium based laxatives. Avoid nephrotoxins/NSAIDs/ iodinated contrast (unless needed emergently) Glycemic control Further work up/management as per primary team Thanks for allowing me to participate in care of your patient. Will follow patient with you. Please call if any Qs. had d/w team Dr Dae Dawn Office: [phone] Chief Complaint;AMS Reason for consult: Acute Kidney Injury, CKD 3 HPI: Pt is a 62 F with hx of diabetes Mellitus (15 years), hypertension (years), CKD 3 with baseline cr 1.2-1.3 recently admitted after complicated abdominal surgery that represents w/ abdominal pain. Was recommended to get mesh removed last admission but refusing and still refusing per surgical service. She does not know why she is in the hospital. She denies n/v. She endorses reduced po intake. ROS: a full detailed ROS is negative except as in my hpi. she feels same. no new complaints Physical Examination: General Appearance: comfortable,morbidly obese. Vitals reviewed and noted as below Head; Atraumatic, normocephalic ENT: dry mucosa EYES: Pupils are equal, round and reactive to light accommodation. Eye muscles and extraocular movement intact. Sclera is anicteric. Neck; supple no lymphadenopathy, no thyromegaly or bruit Lungs: Normal respiratory rate/effort. Breath sounds bilateral equal, diminished at bases but overall limited exam due to her obesity Heart: normal rate. s1s2 normal. No rub or gallop. Extremities: 1+ edema, non pitting lymphedema as well. No varicose veins Neurological: Patient is much more awake follwo commands Skin: Warm and dry. Normal turgor. No rash. Palpitation: Normal elasticity for age Abdomen: Abdomen is + colostomy Psych: nml affect MSK: no joint tenderness or swelling. Digits and nails normal, no deformity : kidney or bladder not palpable Labs/imaging reviewed. Past medical history, past surgical history, family history, social history, allergy reviewed and noted as below Family hx: no hx of CKD. Rest non-contributory Objective - Vital Signs/Intake and Output Vital Signs (last 24 hours): Temp Pulse Resp BP Pulse Ox 98.1 F 78 20 165/60 H 99 05/15/18 12:00 05/15/18 14:00 05/15/18 12:00 05/15/18 13:53 05/15/18 06:00 Intake and Output: 05/15/18 05/15/18 06:59 18:59 Intake Total 240 Output Total 650 Balance -410 - Medications Medications: Current Medications Acetaminophen (Tylenol 325mg Tab) 650 mg PO Q4H PRN PRN Reason: Pain, Mild (1-3) Albuterol/Ipratropium (Duoneb 3 Mg/0.5 Mg (3 Ml) Ud) 3 ml IH [id number] [facility] Last Admin: 05/15/18 13:09 Dose: Not Given Albuterol/Ipratropium (Duoneb 3 Mg/0.5 Mg (3 Ml) Ud) 3 ml IH Q2H PRN PRN Reason: Shortness of Breath Amlodipine Besylate (Norvasc) 10 mg PO DAILY [facility] Last Admin: 05/15/18 09:45 Dose: 10 mg Apixaban (Eliquis) 2.5 mg PO BID [facility]; Protocol Last Admin: 05/15/18 09:45 Dose: 2.5 mg Arformoterol Tartrate (Brovana) 15 mcg IH [id number] [facility] Last Admin: 05/15/18 07:38 Dose: Not Given Armodafinil (Nuvigil 150 Mg Tab) 150 mg PO DAILY [facility] Last Admin: 05/15/18 09:46 Dose: 150 mg Aspirin (Ecotrin) 81 mg PO DAILY [facility] Last Admin: 05/15/18 09:45 Dose: 81 mg Atorvastatin Calcium (Lipitor) 20 mg PO HS [facility] Last Admin: 05/14/18 23:03 Dose: 20 mg Budesonide (Pulmicort Respules) 0.5 mg IH [id number] [facility] Last Admin: 05/15/18 07:38 Dose: Not Given Clonazepam (Klonopin) 1 mg PO HS [facility]; Protocol Stop: 05/19/18 23:59 Last Admin: 05/14/18 23:02 Dose: 1 mg Clonidine HCl (Catapres-Tts3 0.3 Mg/24 Hr) 1 patch TD Q7D@1000 JR Darbepoetin Timothy (Aranesp) 150 mcg SC QWK [facility] Last Admin: 05/14/18 12:26 Dose: 150 mcg Docusate Sodium (Colace) 100 mg PO TID [facility] Last Admin: 05/15/18 13:51 Dose: 100 mg Ergocalciferol (Drisdol 50,000 Intl Units Cap) 1 cap PO Q7D [facility] Last Admin: 05/11/18 23:12 Dose: 1 cap Ferrous Gluconate (Fergon) 324 mg PO DAILY [facility] Last Admin: 05/15/18 09:45 Dose: 324 mg Furosemide (Lasix) 40 mg PO DAILY [facility] Last Admin: 05/15/18 09:44 Dose: 40 mg Hydralazine HCl (Apresoline) 100 mg PO TID [facility] Last Admin: 05/15/18 13:46 Dose: 100 mg Hydromorphone HCl (Dilaudid) 2 mg PO Q4 PRN PRN Reason: Pain Last Admin: 05/15/18 13:52 Dose: 2 mg Micafungin Sodium 100 mg/ (Sodium Chloride) 100 mls @ 100 mls/hr IV DAILY [facility]; Protocol Stop: 05/20/18 22:00 Last Admin: 05/15/18 12:31 Dose: 100 mls/hr Cefepime HCl (Maxipime 1gm) 1 gm in 100 mls @ 100 mls/hr IVPB Q12 [facility]; Protocol Stop: 05/20/18 22:16 Last Admin: 05/15/18 09:43 Dose: 100 mls/hr Insulin Detemir (Levemir) 20 unit SC HS [facility] Last Admin: 05/14/18 22:59 Dose: Not Given Insulin Human Regular (Humulin R Low) 0 units SC [facility]; Protocol Last Admin: 05/15/18 08:20 Dose: Not Given Isosorbide Mononitrate (Imdur) 60 mg PO DAILY [facility] Last Admin: 05/15/18 09:46 Dose: 60 mg Labetalol HCl (Trandate) 300 mg PO Q8 [facility] Last Admin: 05/15/18 13:53 Dose: 300 mg Metoclopramide HCl (Reglan) 5 mg PO [facility] Last Admin: 05/15/18 12:31 Dose: 5 mg Metronidazole (Flagyl) 500 mg PO Q8 [facility]; Protocol Stop: 05/21/18 14:01 Last Admin: 05/15/18 13:52 Dose: 500 mg Nifedipine (Procardia Xl) 60 mg PO QPM [facility] Last Admin: 05/14/18 18:09 Dose: 60 mg Nystatin (Nystop Topical Powder) 0 gm TOP TID [facility] Last Admin: 05/15/18 09:47 Dose: 1 applic Ondansetron HCl (Zofran Inj) 4 mg IVP Q4H PRN PRN Reason: Nausea/Vomiting Pantoprazole Sodium (Protonix Ec Tab) 20 mg PO ACB [facility] Last Admin: 05/15/18 08:19 Dose: 20 mg Simethicone (Mylicon Chew Tab) 80 mg PO PCHS PRN PRN Reason: GI distress Vitamin B Complex/Vit C/Folic Acid (Nephro-Holland) 1 tab PO 0800 [facility] Last Admin: 05/15/18 08:19 Dose: 1 tab - Labs Labs: 05/14/18 07:30 05/14/18 07:30 PT 15.0 SECONDS (9.4-12.5) H 05/11/18 13:45 INR 1.30 05/11/18 13:45 APTT 20.4 Seconds (25.1-36.5) L 05/11/18 13:45
--- NOTE | 2018-05-15 17:16 | CP.PCM.PN ---
Subjective - Date & Time of Evaluation Date of Evaluation: 05/15/18 Time of Evaluation: 10:15 - Subjective Subjective: No fevers, still with some abdominal discomfort, no nausea. Objective - Vital Signs/Intake and Output Vital Signs (last 24 hours): Temp Pulse Resp BP Pulse Ox 98.3 F 85 22 141/62 97 05/14/18 06:00 05/14/18 09:51 05/14/18 06:00 05/14/18 09:54 05/14/18 06:00 Intake and Output: 05/14/18 05/14/18 06:59 18:59 Intake Total 100 240 Output Total 475 Balance 100 -235 - Medications Medications: Current Medications Acetaminophen (Tylenol 325mg Tab) 650 mg PO Q4H PRN PRN Reason: Pain, Mild (1-3) Albuterol/Ipratropium (Duoneb 3 Mg/0.5 Mg (3 Ml) Ud) 3 ml IH [id number] [facility] Last Admin: 05/14/18 08:59 Dose: Not Given Albuterol/Ipratropium (Duoneb 3 Mg/0.5 Mg (3 Ml) Ud) 3 ml IH Q2H PRN PRN Reason: Shortness of Breath Amlodipine Besylate (Norvasc) 10 mg PO DAILY [facility] Last Admin: 05/14/18 09:54 Dose: 10 mg Apixaban (Eliquis) 2.5 mg PO BID [facility]; Protocol Last Admin: 05/14/18 09:52 Dose: 2.5 mg Arformoterol Tartrate (Brovana) 15 mcg IH [id number] [facility] Last Admin: 05/14/18 08:59 Dose: Not Given Armodafinil (Nuvigil 150 Mg Tab) 150 mg PO DAILY [facility] Last Admin: 05/14/18 09:54 Dose: 150 mg Aspirin (Ecotrin) 81 mg PO DAILY [facility] Last Admin: 05/14/18 09:52 Dose: 81 mg Atorvastatin Calcium (Lipitor) 20 mg PO HS [facility] Last Admin: 05/13/18 22:03 Dose: 20 mg Budesonide (Pulmicort Respules) 0.5 mg IH [id number] [facility] Last Admin: 05/14/18 08:59 Dose: Not Given Clonazepam (Klonopin) 1 mg PO HS [facility]; Protocol Stop: 05/19/18 23:59 Clonidine HCl (Catapres-Tts3 0.3 Mg/24 Hr) 1 patch TD Q7D@1000 JR Darbepoetin Timothy (Aranesp) 150 mcg SC QWK [facility] Docusate Sodium (Colace) 100 mg PO TID [facility] Last Admin: 05/14/18 09:51 Dose: 100 mg Ergocalciferol (Drisdol 50,000 Intl Units Cap) 1 cap PO Q7D [facility] Last Admin: 05/11/18 23:12 Dose: 1 cap Ferrous Gluconate (Fergon) 324 mg PO DAILY [facility] Last Admin: 05/14/18 09:52 Dose: 324 mg Furosemide (Lasix) 40 mg PO DAILY [facility] Last Admin: 05/14/18 09:50 Dose: 40 mg Hydralazine HCl (Apresoline) 100 mg PO TID [facility] Last Admin: 05/14/18 09:51 Dose: 100 mg Hydromorphone HCl (Dilaudid) 2 mg PO Q4 PRN PRN Reason: Pain Last Admin: 05/14/18 05:53 Dose: 2 mg Micafungin Sodium 100 mg/ (Sodium Chloride) 100 mls @ 100 mls/hr IV DAILY [facility]; Protocol Stop: 05/20/18 22:00 Last Admin: 05/14/18 09:53 Dose: 100 mls/hr Cefepime HCl (Maxipime 1gm) 1 gm in 100 mls @ 100 mls/hr IVPB Q12 [facility]; Protocol Stop: 05/20/18 22:16 Last Admin: 05/13/18 22:07 Dose: 100 mls/hr Insulin Detemir (Levemir) 20 unit SC HS [facility] Last Admin: 05/13/18 22:07 Dose: Not Given Insulin Human Regular (Humulin R Low) 0 units SC ACHS [facility]; Protocol Last Admin: 05/14/18 07:35 Dose: Not Given Isosorbide Mononitrate (Imdur) 60 mg PO DAILY [facility] Last Admin: 05/14/18 09:51 Dose: 60 mg Labetalol HCl (Trandate) 300 mg PO Q8 [facility] Last Admin: 05/14/18 05:46 Dose: 300 mg Magnesium Oxide (Mag-Ox) 400 mg PO BID [facility] Stop: 05/14/18 23:59 Last Admin: 05/14/18 09:53 Dose: 400 mg Metoclopramide HCl (Reglan) 5 mg PO ACHS [facility] Last Admin: 05/14/18 07:04 Dose: 5 mg Metronidazole (Flagyl) 500 mg PO Q8 [facility]; Protocol Stop: 05/21/18 14:01 Last Admin: 05/14/18 05:47 Dose: 500 mg Nifedipine (Procardia Xl) 60 mg PO QPM [facility] Last Admin: 05/13/18 18:04 Dose: 60 mg Ondansetron HCl (Zofran Inj) 4 mg IVP Q4H PRN PRN Reason: Nausea/Vomiting Pantoprazole Sodium (Protonix Ec Tab) 20 mg PO ACB [facility] Last Admin: 05/14/18 07:03 Dose: 20 mg Simethicone (Mylicon Chew Tab) 80 mg PO PCHS PRN PRN Reason: GI distress Vitamin B Complex/Vit C/Folic Acid (Nephro-Holland) 1 tab PO 0800 [facility] Last Admin: 05/14/18 07:37 Dose: 1 tab - Labs Labs: 05/14/18 07:30 05/14/18 07:30 PT 15.0 SECONDS (9.4-12.5) H 05/11/18 13:45 INR 1.30 05/11/18 13:45 APTT 20.4 Seconds (25.1-36.5) L 05/11/18 13:45 - Constitutional Appears: Chronically Ill - Head Exam Head Exam: NORMAL INSPECTION - Respiratory Exam Respiratory Exam: Decreased Breath Sounds - Cardiovascular Exam Cardiovascular Exam: +S1, +S2 - GI/Abdominal Exam GI & Abdominal Exam: Soft. absent: Tenderness Additional comments: dressings in place Assessment and Plan - Assessment and Plan (Free Text) Plan: Assessment abdominal wall cellulitis with probable infected abdominal mesh; most recent cultures from 05/03/2018 showed Pseudomonas and C. famata S/P small bowel obstruction in this patient with ventral wall hernia, S/P ventral incarcerated hernia repair, adhesiolysis and revision of colostomy S/P acute coronary syndrome with NSTEMI COPD history of VRE UTI history of severe sepsis secondary to left medial thigh abscess, growing Proteus, S/P incision and drainage DM HTN CAD Unresectable rectal cancer S/P chemotherapy and radiation therapy S/P colostomy S/P Port-a-cath placement morbid obesity with BMI 50 obstructive sleep apnea history of pulmonary embolism S/P IVC filter placement Plan continue Cefepime and Flagyl and Mycamine as well as intermittent Vancomycin (day 4) pending repeat abdominal wound cx; follow up further plans of surgery, but apparently the patient has been refusing to have the mesh removed as per other doctors will continue to follow clinically
[2018-05-15] MEDS: NIFEdipine 60 mg ER Tab PO SCH (17:53)
[2018-05-15] MEDS: Silver Sulfadiazine 1% Cream (25 gm) TP SCH (19:50)
--- NOTE | 2018-05-15 20:19 | PN ---
DATE: 05/14/2018 SUBJECTIVE: The patient is a 62-year-old female. The patient seems comfortable. Slept well. No chest pain. No shortness of breath. No fever. No nausea or vomiting. PHYSICAL EXAMINATION: GENERAL: Stable. VITAL SIGNS: Temperature is 98.5, heart rate 72, blood pressure 141/56, and respirations 20. HEAD AND NECK: Normal. No JVD. No thyromegaly. CHEST: Clear bilateral. CARDIAC: First sound and second sound normal. No mummer, rub, or gallop. ABDOMEN: Soft, obese, and nontender. Midline incision seems dry. Colostomy at right side. EXTREMITIES: No edema. NEUROLOGIC: Normal. LABORATORY DATA: Laboratory study noted for white count 6.2, hemoglobin 8, hematocrit 27.1, and platelets 330. Chemistry: Sodium 139, potassium 5, chloride 108, bicarb 30, BUN 53, creatinine 1.5, blood sugar 133, calcium 8, phosphorus 3.8, and magnesium 1.8. IMPRESSION AND PLAN: 1. Abdominal wound infection. I discussed with the surgeon, Dr. Mckeon. It seems like the wound is drying up. The patient has no fever, no temperature, so we will clinically definite know whether there is a mesh infection or not, but at this time clinically the patient seems going towards dry wound and getting better clinically. If this patient has mesh infection, she will still have a fever and she will get sick, so continue current therapy in that direction. We will follow up clinically. 2. Hypertension, coronary artery disease, congestive heart failure. Continue current medications. 3. Insulin-dependant diabetes, hypercholesterolemia. 4. Morbid obesity, obstructive sleep apnea. 5. Anemia. Colostomy. At this time, we are not going to do any intervention. Continue current therapy. 6. Psychiatric ji, she is stable. reports she is on Klonopin 1 mg p.o. at bedtime. Continue current medications. Follow up clinically. Continue intravenous fluids. Kidney function is stable. Chronic renal failure with acute worsening. Seems better. Continue current therapy. Elroy Florian MD
[2018-05-15] MEDS: Insulin Detemir 100 units/ml Vial (Levemir) SC SCH (22:02)
[2018-05-16] MEDS: Albuterol-Ipratrop 3 mg / 0.5 (3 ml) UD IH SCH ×4 (01:29→19:53)
[2018-05-16] MEDS ORDERED: Saliva Substitute 44.3 ML PO PRN (07:00)
[2018-05-16] MEDS: Arformoterol 15 mcg/2 ml Inh Sol IH SCH ×2 (07:40→19:53)
[2018-05-16] MEDS: Budesonide 0.5 mg/2 ml Inhal Susp UD IH SCH ×2 (07:40→19:54)
[2018-05-16] MEDS: Multivitamin Vitamin B Complex (Nephro-Vite) Tab PO SCH (08:44)
[2018-05-16] MEDS: Pantoprazole 20 mg EC Tab PO SCH (08:44)
[2018-05-16] MEDS: Insulin Reg-LOW-Coverage SC SCH ×4 (08:45→21:48)
--- NOTE | 2018-05-16 08:56 | PN ---
DATE: 05/16/2018 SUBJECTIVE: The patient is in bed, in no acute distress, nontoxic on exam. PHYSICAL EXAMINATION: VITAL SIGNS: Temperature is 98, blood pressure is 130/80, respiratory rate of 18. HEENT: Unremarkable. NECK: Supple. LUNGS: Have decreased breath sounds. HEART: Normal S1, S2. ABDOMEN: Soft, nontender. No organomegaly. No rebound or guarding. No masses. LABORATORY EXAMINATION: Reveals a white count of 6.2, hemoglobin of 8. Chemistries are noted and creatinine is 1.5. Urinalysis is noted. Microbiology reveals urine has yeast. Abdominal wound culture has yeast. The blood cultures are negative. The patient's medication reveals the patient to be on p.o. Flagyl. The patient is on cefepime which requires renewal, which he will do so and Mycamine which also requires renewal, which do so. ASSESSMENT AND PLAN: A 62-year-old female with an abdominal wall cellulitis with infected mesh with yeast. Repeated cultures and gram-negative Pseudomonas in a patient with super morbid obesity, chronic obstructive lung disease, diabetes, hypertension, coronary artery disease and rectal cancer which is unresectable, status post chemotherapy and had a Port-A-Cath, pulmonary emboli with inferior vena cava filter, on cefepime, Flagyl Mycamine day #5, will need removal of the infected mesh. The patient has thus far refused this mesh infection will not clear with yeast present with antifungal therapy alone. Would encourage the patient to have removal of the mesh. Lawrence Cheek MD
--- NOTE | 2018-05-16 09:25 | CP.PCM.PN ---
Subjective - Date & Time of Evaluation Date of Evaluation: 05/16/18 Time of Evaluation: 06:25 - Subjective Subjective: Lying in bed, awake, responds to questions, no distress, Reason for consultation: Cardiac evaluation of history of congestive heart f ailure, transferred from [place] [facility] due to lethargy Seen and examined by me and Dr. Hernandez Objective - Vital Signs/Intake and Output Vital Signs (last 24 hours): Temp Pulse Resp BP Pulse Ox 98.5 F 68 22 133/83 97 05/16/18 06:00 05/16/18 06:00 05/16/18 00:01 05/16/18 05:36 05/16/18 00:01 Intake and Output: 05/16/18 05/16/18 06:59 18:59 Intake Total 640 Output Total 250 Balance 390 - Medications Medications: Current Medications Acetaminophen (Tylenol 325mg Tab) 650 mg PO Q4H PRN PRN Reason: Pain, Mild (1-3) Albuterol/Ipratropium (Duoneb 3 Mg/0.5 Mg (3 Ml) Ud) 3 ml IH [id number] [facility] Last Admin: 05/16/18 07:40 Dose: 3 ml Albuterol/Ipratropium (Duoneb 3 Mg/0.5 Mg (3 Ml) Ud) 3 ml IH Q2H PRN PRN Reason: Shortness of Breath Amlodipine Besylate (Norvasc) 10 mg PO DAILY [facility] Last Admin: 05/15/18 09:45 Dose: 10 mg Apixaban (Eliquis) 2.5 mg PO BID [facility]; Protocol Last Admin: 05/15/18 17:54 Dose: 2.5 mg Arformoterol Tartrate (Brovana) 15 mcg IH [id number] [facility] Last Admin: 05/16/18 07:40 Dose: 15 mcg Armodafinil (Nuvigil 150 Mg Tab) 150 mg PO DAILY [facility] Last Admin: 05/15/18 09:46 Dose: 150 mg Aspirin (Ecotrin) 81 mg PO DAILY [facility] Last Admin: 05/15/18 09:45 Dose: 81 mg Atorvastatin Calcium (Lipitor) 20 mg PO HS [facility] Last Admin: 05/15/18 22:25 Dose: 20 mg Budesonide (Pulmicort Respules) 0.5 mg IH [id number] [facility] Last Admin: 05/16/18 07:40 Dose: 0.5 mg Clonazepam (Klonopin) 1 mg PO HS [facility]; Protocol Stop: 05/19/18 23:59 Last Admin: 05/15/18 22:56 Dose: 1 mg Clonidine HCl (Catapres-Tts3 0.3 Mg/24 Hr) 1 patch TD Q7D@1000 JR Darbepoetin Timothy (Aranesp) 150 mcg SC QWK JR Last Admin: 05/14/18 12:26 Dose: 150 mcg Docusate Sodium (Colace) 100 mg PO TID [facility] Last Admin: 05/15/18 17:53 Dose: 100 mg Ergocalciferol (Drisdol 50,000 Intl Units Cap) 1 cap PO Q7D [facility] Last Admin: 05/11/18 23:12 Dose: 1 cap Ferrous Gluconate (Fergon) 324 mg PO DAILY [facility] Last Admin: 05/15/18 09:45 Dose: 324 mg Furosemide (Lasix) 40 mg PO DAILY [facility] Last Admin: 05/15/18 09:44 Dose: 40 mg Hydralazine HCl (Apresoline) 100 mg PO TID [facility] Last Admin: 05/15/18 17:53 Dose: 100 mg Hydromorphone HCl (Dilaudid) 2 mg PO Q4 PRN PRN Reason: Pain Last Admin: 05/16/18 01:12 Dose: 2 mg Micafungin Sodium 100 mg/ (Sodium Chloride) 100 mls @ 100 mls/hr IV DAILY [facility]; Protocol Stop: 05/20/18 22:00 Last Admin: 05/15/18 12:31 Dose: 100 mls/hr Cefepime HCl (Maxipime 1gm) 1 gm in 100 mls @ 100 mls/hr IVPB Q12 [facility]; Protocol Stop: 05/20/18 22:16 Last Admin: 05/15/18 22:24 Dose: 100 mls/hr Insulin Detemir (Levemir) 20 unit SC HS [facility] Last Admin: 05/15/18 22:02 Dose: Not Given Insulin Human Regular (Humulin R Low) 0 units SC ACHS [facility]; Protocol Last Admin: 05/16/18 08:45 Dose: Not Given Isosorbide Mononitrate (Imdur) 60 mg PO DAILY [facility] Last Admin: 05/15/18 09:46 Dose: 60 mg Labetalol HCl (Trandate) 300 mg PO Q8 [facility] Last Admin: 05/16/18 05:36 Dose: 300 mg Metoclopramide HCl (Reglan) 5 mg PO ACHS [facility] Last Admin: 05/16/18 08:45 Dose: 5 mg Metronidazole (Flagyl) 500 mg PO Q8 [facility]; Protocol Stop: 05/21/18 14:01 Last Admin: 05/16/18 05:36 Dose: 500 mg Nifedipine (Procardia Xl) 60 mg PO QPM [facility] Last Admin: 05/15/18 17:53 Dose: 60 mg Nystatin (Nystop Topical Powder) 0 gm TOP TID [facility] Last Admin: 05/15/18 17:41 Dose: 1 applic Ondansetron HCl (Zofran Inj) 4 mg IVP Q4H PRN PRN Reason: Nausea/Vomiting Pantoprazole Sodium (Protonix Ec Tab) 20 mg PO ACB [facility] Last Admin: 05/16/18 08:44 Dose: 20 mg Pregabalin (Lyrica) 50 mg PO BID [facility] Last Admin: 05/15/18 19:06 Dose: 50 mg Saliva Substitute (Saliva Substitute) 0 ml PO 5XD PRN PRN Reason: DRY MOUTH Silver Sulfadiazine (Silvadene 1% 25 Gm) 0 gm TP BID [facility] Last Admin: 05/15/18 19:50 Dose: Not Given Simethicone (Mylicon Chew Tab) 80 mg PO PCHS PRN PRN Reason: GI distress Vitamin B Complex/Vit C/Folic Acid (Nephro-Holland) 1 tab PO 0800 [facility] Last Admin: 05/16/18 08:44 Dose: 1 tab - Labs Labs: 05/14/18 07:30 05/14/18 07:30 PT 15.0 SECONDS (9.4-12.5) H 05/11/18 13:45 INR 1.30 05/11/18 13:45 APTT 20.4 Seconds (25.1-36.5) L 05/11/18 13:45 - Constitutional Appears: Non-toxic, No Acute Distress - Head Exam Head Exam: NORMAL INSPECTION, NORMOCEPHALIC - Eye Exam Eye Exam: Normal appearance Pupil Exam: NORMAL ACCOMODATION - ENT Exam ENT Exam: Mucous Membranes Moist, Normal Exam - Respiratory Exam Respiratory Exam: Decreased Breath Sounds, NORMAL BREATHING PATTERN - Cardiovascular Exam Cardiovascular Exam: +S1, +S2 - GI/Abdominal Exam GI & Abdominal Exam: Soft, Normal Bowel Sounds Additional comments: colostomy - Extremities Exam Additional comments: 2+edema - Neurological Exam Neurological Exam: Alert, Awake, Oriented x3 - Psychiatric Exam Psychiatric exam: Normal Affect, Normal Mood - Skin Skin Exam: Dry, Normal Color, Warm Assessment and Plan - Assessment and Plan (Free Text) Assessment: A 62 year old morbidly obese female who got transferred to [facility] [place] [facility] due to altered mental status. Patient is known to service from previous multiple admissions. History of coronary artery disease with stent of circumflex,hypertension,hyperlipidemia,diabetes,sleep apnea,COPD, congestive heart failure, DVT/PE. History of bowel resection in the past with colostomy. She was admitted to [facility] due to small bowel obstruction and on 04/16/18 she had explor-lap and lysis of adhesions and ventral hernia repair with revision of colostomy (Dr. Mckeon).Postoperatively, patient had infection involving th mesh placed for the hernia repair and it was recommended that she undergo an additional procedure to have the mesh removed however patient refused surgical procedure. She was stablized and transferred to [facility]. Chest X ray showed severe cardiomegaly,moderate to severe pulmonary congestion.Not in respiratory distress, On nasal cannula 4l/min. Troponin 0.14/.15, denies chest pain, EKG- normal sinus rhythm, elevated due to renal insuffiency. Will treat medically. Surgical follow up for abdominal wound. Symptoms clinically improved. Plan: No distress, Denies chest pain Heart rate controlled Blood pressure controlled Cardiac status stable On Norvasc 10 mg daily, Eliquis 2.5 mg BID, ASA 81 mg daily, Lipitor 20 mg daily,Clonidine patch weekly,Lasix 40 mg daily, Labetolol 300 mg every 8 hours, Nifedipine 60 mg daily, Imdur 60 mg daily Continue current treatment Continue current medications Being followed up by surgery ID on Consult Will follow up Plan and treatment discussed with Dr. Hernandez
--- NOTE | 2018-05-16 09:31 | PN ---
DATE: 05/15/2018 SUBJECTIVE: The patient is seen in the bed, lying supine, ____ after discontinuing Marrero catheter, back sore and second-degree bed sore, which is kind of diffuse between her legs because of morbid obesity and her back is being covered with cream, antifungal as well as Silvadene. The patient complained of pain in her back. She also is being very alert. She slept very well and no agitations, but she wants to move. No wound discharge. Seems stable and afebrile. PHYSICAL EXAMINATION: VITAL SIGNS: On 05/15/2018, temperature 98, heart rate 74, blood pressure 148/53, and respirations 18. HEAD AND NECK: Normal. No JVD. No thyromegaly. CHEST: Clear bilateral. CARDIAC: First sound and second sound normal. ABDOMEN: Soft, obese, and morbid. There is a coverage for the previous colostomy site and also the colostomy site bag is intact with no seepage and she is doing good. Midline incision seems to be doing better and bowel sounds intact. EXTREMITIES: Mild edema in the forefoot area in the dorsum. NEUROLOGIC: She does move all extremities. She is talking. She is asking for medications and a lot better mentally and clinically better. LABORATORY DATA: Last white count 6.2, hemoglobin 8, hematocrit 27.1, and platelets 330. Blood sugar 128. Sodium 139, potassium 5, chloride 108, bicarb 30, BUN 53, creatinine 1.5, blood sugar 115, calcium 8, phosphorus 3.8, and magnesium 1.8. IMPRESSION AND PLAN: 1. The patient came in because of acute change in her mental status, seems a lot better now. 2. Intraabdominal wall wound infection pseudomonas. The patient currently on IV antibiotics. She is on Merrem and micafungin, doing better. 3. Also she has hypertension, difficult to control. She was doing well with Norvasc, hydralazine 100 t.i.d., Norvasc 10. She is also getting Catapres patch x3 and she was doing well. Continue also labetalol. 4. History of deep venous thrombosis, pulmonary embolism, coronary artery disease, hypercoagulable state. Continue Eliquis 2.5 mg p.o. b.i.d. No active bleeding. 5. Chronic obstructive pulmonary disease, obstructive sleep apnea, and morbid obesity. The patient's BMI is 56. We will continue current therapy. 6. Chronic back pain, chronic osteoarthritis. Continue Dilaudid 2 mg p.o. every 4 hours p.r.n. The patient is, otherwise, stable. Continue current medications; hydralazine 100 p.o. t.i.d., Aranesp 150 mcg subcu once a week, Brovana b.i.d., Catapres patch 0.3, Colace, Dilaudid 2 mg p.o. every 4 hours, vitamin D 50,000 once a day, DuoNeb, Ecotrin 81, Eliquis, 2.5 mg b.i.d., Reglan, Flagyl, insulin, Imdur 60, Klonopin 1 mg p.o. every night at bedtime, Lasix 40 mg p.o. daily, Levemir 20 subcu daily, Lipitor 20 p.o. every night at bedtime, Lyrica, Maxipime 1 g IV every 12 hours, micafungin 100 mL/hour IV daily once a day, Mylicon chewing tablets p.o. p.r.n., vitamin C, vitamin B complex, folic acid, Nephro-Holland, Norvasc 10 once a day, Neupogen 150 once a day, nystatin powder, Procardia XL 60, Protonix 20, Pulmicort 25, Reglan 5 mg before a meal every night at bed time, saliva substitute, Silvadene cream 1% 2 g on the affected area, Trandate or labetalol 300 mg t.i.d., Tylenol, and Zofran. Continue current therapy. The patient seems to be improving. She needs a strong physical therapy to help her get out of the bed. She may need a lift to help her to get out of the bed and be able to walk with her morbid obesity. Continue current therapy. Elroy Florian MD
[2018-05-16] MEDS: Micafungin 100 MG in Sodium Chloride 0.9% 100 ML IV SCH (10:55)
[2018-05-16] MEDS: Nystatin 100,000 Units/gm Topical Pow(15 gm) TOP SCH ×3 (11:36→17:48)
[2018-05-16] MEDS: Cefepime 1gm in NS 100ml 1 GM/100 ML BAG IVPB SCH ×2 (11:40→21:49)
--- NOTE | 2018-05-16 11:59 | PN ---
PULMONARY PROGRESS NOTE DATE: 05/16/2018 REFERRING PHYSICIAN: Elroy Florian MD SUBJECTIVE: The patient is lying in bed, appears very sleepy and tired. No acute distress noted. No overnight events reported. The patient reports she did not use BiPAP machine last night. No headache, rhinitis, cough, shortness of breath, chest pain, nausea, vomiting, diarrhea, leg pain or leg swelling reported. The patient does report some abdominal pain at surgical site. OBJECTIVE GENERAL: No acute distress. VITAL SIGNS: Blood pressure 133/83, pulse 69, temperature 98.5 and oxygen saturation 97% on nasal cannula. HEENT: Moist mucous membranes. NECK: Supple. No JVD. CARDIOVASCULAR: S1 and S2 audible. LUNGS: Fair airflow bilaterally. ABDOMEN: Obese. Dressing to surgical site, has colostomy bag with soft stool. Positive bowel sounds. Tender on palpation. EXTREMITIES: +1 edema bilateral lower extremity. NEUROLOGIC: Asleep, easily arousable, verbal and follow simple commands. LABORATORY DATA: Reviewed. POC glucose 108. MEDICATIONS: Reviewed. Tylenol 650 mg every 4 hours p.r.n. for mild pain, DuoNeb 3 mL inhalation every 2 hours p.r.n, DuoNeb 3 mL inhalation every 6 hours, Norvasc 10 mg p.o. daily, Eliquis 2.5 mg twice a day, Brovana 15 mcg inhalation every 12 hours, Nuvigil 150 mg p.o. daily, aspirin 81 mg p.o. daily, Lipitor 20 mg at bedtime, Pulmicort 0.5 mg inhalation every 12 hours, cefepime 1 g every 12 hours, Klonopin 1 mg at bedtime, clonidine 0.3 mg one patch every 7 days, Aranesp 150 mcg weekly, Colace 100 mg three times a day, ergocalciferol one cap every 7 days, ferrous gluconate 324 mg p.o. daily, Lasix 40 mg p.o. daily, hydralazine 100 mg three times a day, Dilaudid 2 mg every 4 hours p.r.n., Levemir 20 units subcutaneously at bedtime, Humulin R sliding scale, isosorbide mononitrate 60 mg p.o. daily, labetalol 300 mg every 8 hours, Reglan 5 mg a.c. and at bedtime, Flagyl 500 mg every 8 hours, micafungin 100 mg daily, Procardia XL 60 mg in the evening, nystatin topically three times a day to affected area, Zofran 4 mg IV push every 4 hours p.r.n., Protonix 40 mg, Lyrica 50 mg twice a day, saliva substitute five times a day p.r.n., Silvadene topically to affected area twice a day, simethicone 80 mg p.r.n. and Nephro-Holland one tab daily. IMPRESSION AND PLAN: Status post laparotomy with small-bowel obstruction with hernia repair and relocation of colostomy, hypoventilation syndrome with CO2 retention, hypoxia requiring non-invasive ventilation, history of pulmonary embolism and deep venous thrombosis in the remote past, diabetes, chronic obstructive lung disease, hypertension, morbid obesity, pulmonary hypertension, recurrent abdominal pain, may have mesh infection, wound culture preliminary shows yeast species, the patient is on micafungin. Continue antibiotics as per Infectious Disease. Continue to followup with surgical team. Spoke with patient this morning and encouraged the use of bilevel positive airway pressure at bedtime. The patient is currently very sleepy and tired, may be a result of refusing bilevel positive airway pressure for the last couple of days. We will increase daytime stimulant. Continue anticoagulation therapy, inhaled bronchodilators, gastric prophylaxis, pressure ulcer precautions, sleep apnea precaution and head of bed elevated at 45 degrees. This patient was seen and examined with Dr. Ayala. Discussed assessment and plan as described above. Thank you for this consult and we will follow with you. Breezy Schafer APN Pamela Ayala MD
--- NOTE | 2018-05-16 12:29 | CP.PCM.APN ---
Subjective - Date & Time of Evaluation Date of Evaluation: 05/16/18 Time of Evaluation: 09:30 - Subjective Subjective: pt seen and examined in bed, pt in no distress, sleepy but conversational offers no complaints , per Rn pt refuses to wear BIPAP Review of Systems - Constitutional Constitutional: Fatigue Objective - Vital Signs/Intake and Output Vital Signs (last 24 hours): Temp Pulse Resp BP Pulse Ox 98.5 F 75 22 167/58 H 97 05/16/18 06:00 05/16/18 11:39 05/16/18 00:01 05/16/18 11:39 05/16/18 00:01 Intake and Output: 05/16/18 05/16/18 06:59 18:59 Intake Total 640 Output Total 250 Balance 390 - Medications Medications: Current Medications Acetaminophen (Tylenol 325mg Tab) 650 mg PO Q4H PRN PRN Reason: Pain, Mild (1-3) Albuterol/Ipratropium (Duoneb 3 Mg/0.5 Mg (3 Ml) Ud) 3 ml IH [id number] [facility] Last Admin: 05/16/18 07:40 Dose: 3 ml Albuterol/Ipratropium (Duoneb 3 Mg/0.5 Mg (3 Ml) Ud) 3 ml IH Q2H PRN PRN Reason: Shortness of Breath Amlodipine Besylate (Norvasc) 10 mg PO DAILY [facility] Last Admin: 05/16/18 11:35 Dose: 10 mg Apixaban (Eliquis) 2.5 mg PO BID [facility]; Protocol Last Admin: 05/16/18 11:34 Dose: 2.5 mg Arformoterol Tartrate (Brovana) 15 mcg IH [id number] [facility] Last Admin: 05/16/18 07:40 Dose: 15 mcg Armodafinil (Nuvigil 250 Mg Tab) 250 mg PO DAILY [facility] Aspirin (Ecotrin) 81 mg PO DAILY [facility] Last Admin: 05/16/18 11:33 Dose: 81 mg Atorvastatin Calcium (Lipitor) 20 mg PO HS [facility] Last Admin: 05/15/18 22:25 Dose: 20 mg Budesonide (Pulmicort Respules) 0.5 mg IH [id number] [facility] Last Admin: 05/16/18 07:40 Dose: 0.5 mg Clonazepam (Klonopin) 1 mg PO HS [facility]; Protocol Stop: 05/19/18 23:59 Last Admin: 05/15/18 22:56 Dose: 1 mg Clonidine HCl (Catapres-Tts3 0.3 Mg/24 Hr) 1 patch TD Q7D@1000 JR Darbepoetin Timothy (Aranesp) 150 mcg SC QWK [facility] Last Admin: 05/14/18 12:26 Dose: 150 mcg Docusate Sodium (Colace) 100 mg PO TID [facility] Last Admin: 05/16/18 11:34 Dose: 100 mg Ergocalciferol (Drisdol 50,000 Intl Units Cap) 1 cap PO Q7D [facility] Last Admin: 05/11/18 23:12 Dose: 1 cap Ferrous Gluconate (Fergon) 324 mg PO DAILY [facility] Last Admin: 05/16/18 11:34 Dose: 324 mg Furosemide (Lasix) 40 mg PO DAILY [facility] Last Admin: 05/16/18 11:34 Dose: 40 mg Hydralazine HCl (Apresoline) 100 mg PO TID [facility] Last Admin: 05/16/18 11:39 Dose: 100 mg Hydromorphone HCl (Dilaudid) 2 mg PO Q4 PRN PRN Reason: Pain Last Admin: 05/16/18 01:12 Dose: 2 mg Micafungin Sodium 100 mg/ (Sodium Chloride) 100 mls @ 100 mls/hr IV DAILY [facility]; Protocol Stop: 05/20/18 22:00 Last Admin: 05/16/18 10:55 Dose: 100 mls/hr Cefepime HCl (Maxipime 1gm) 1 gm in 100 mls @ 100 mls/hr IVPB Q12 [facility]; Protocol Stop: 05/20/18 22:16 Last Admin: 05/16/18 11:40 Dose: 100 mls/hr Insulin Detemir (Levemir) 20 unit SC [facility] Last Admin: 05/15/18 22:02 Dose: Not Given Insulin Human Regular (Humulin R Low) 0 units SC ACHS [facility]; Protocol Last Admin: 05/16/18 08:45 Dose: Not Given Isosorbide Mononitrate (Imdur) 60 mg PO DAILY [facility] Last Admin: 05/16/18 11:33 Dose: 60 mg Labetalol HCl (Trandate) 300 mg PO Q8 [facility] Last Admin: 05/16/18 05:36 Dose: 300 mg Metoclopramide HCl (Reglan) 5 mg PO ACHS [facility] Last Admin: 05/16/18 11:37 Dose: Not Given Metronidazole (Flagyl) 500 mg PO Q8 [facility]; Protocol Stop: 05/21/18 14:01 Last Admin: 05/16/18 05:36 Dose: 500 mg Nifedipine (Procardia Xl) 60 mg PO QPM [facility] Last Admin: 05/15/18 17:53 Dose: 60 mg Nystatin (Nystop Topical Powder) 0 gm TOP TID [facility] Last Admin: 05/16/18 11:36 Dose: 1 applic Ondansetron HCl (Zofran Inj) 4 mg IVP Q4H PRN PRN Reason: Nausea/Vomiting Pantoprazole Sodium (Protonix Ec Tab) 20 mg PO ACB [facility] Last Admin: 05/16/18 08:44 Dose: 20 mg Pregabalin (Lyrica) 50 mg PO BID [facility] Last Admin: 05/16/18 11:39 Dose: 50 mg Saliva Substitute (Saliva Substitute) 0 ml PO 5XD PRN PRN Reason: DRY MOUTH Silver Sulfadiazine (Silvadene 1% 25 Gm) 0 gm TP BID [facility] Last Admin: 05/15/18 19:50 Dose: Not Given Simethicone (Mylicon Chew Tab) 80 mg PO PCHS PRN PRN Reason: GI distress Vitamin B Complex/Vit C/Folic Acid (Nephro-Holland) 1 tab PO 0800 [facility] Last Admin: 05/16/18 08:44 Dose: 1 tab - Labs Labs: 05/14/18 07:30 05/14/18 07:30 PT 15.0 SECONDS (9.4-12.5) H 05/11/18 13:45 INR 1.30 05/11/18 13:45 APTT 20.4 Seconds (25.1-36.5) L 05/11/18 13:45 - Constitutional Appears: No Acute Distress, Older Than Stated Age, Chronically Ill - Head Exam Head Exam: ATRAUMATIC, NORMOCEPHALIC - Eye Exam Eye Exam: Normal appearance - ENT Exam ENT Exam: Mucous Membranes Moist - Respiratory Exam Respiratory Exam: Decreased Breath Sounds - Cardiovascular Exam Cardiovascular Exam: +S1, +S2 - GI/Abdominal Exam GI & Abdominal Exam: Soft, Normal Bowel Sounds Additional comments: multiple abd dsgs intact, colostomy bag in place, brown stools noted - Extremities Exam Additional comments: obese - Neurological Exam Neurological Exam: Alert, Awake - Psychiatric Exam Psychiatric exam: Normal Affect - Skin Skin Exam: Dry Additional comments: sacrum reddened / fungal areas noted to bilateral thighs Assessment and Plan - Assessment and Plan (Free Text) Assessment: Microbiology 05/12/18 22:54 Abdomen Gram Stain - Final 05/12/18 22:54 Abdomen Wound Culture - Final Celsa Albicans 05/11/18 19:35 Blood Blood Culture - Preliminary NO GROWTH AFTER 4 DAYS 05/11/18 13:45 Blood Blood Culture - Preliminary NO GROWTH AFTER 4 DAYS 05/11/18 15:39 Urine,Catheterized Urine Culture - Final Yeast Species All Active Problems COPD (chronic obstructive pulmonary disease) (Acute) Congestive heart failure (Acute) Urinary tract infection (Acute) Abdominal pain (Acute) Abscess (Acute) Acute hypercapnic respiratory failure due to obstructive sleep apnea (Acute) Acute kidney injury (Acute) Acute pulmonary embolus (Acute) [id number] kidney injury (Acute) Altered mental status (Acute) Anemia (Acute) Anemia of chronic disease (Acute) Back pain (Acute) Chronic kidney disease-mineral and bone disorder (Acute) Dehydration (Acute) Diastolic CHF (Acute) Hypercapnic respiratory failure, chronic (Acute) Hyperglycemia (Acute) Hypertension (Acute) Hypertensive chronic kidney disease (Acute) Intractable abdominal pain (Acute) Intractable vomiting (Acute) Leukocytosis (Acute) Nephrotic range proteinuria (Acute) Partial small bowel obstruction (Acute) Pneumonia (Acute) Proteinuria (Acute) Pulmonary edema (Acute) Rectal carcinoma (Acute) Renal failure (Acute) Renal failure (ARF), acute on chronic (Acute) Renal failure (ARF), acute on chronic (Acute) Renal insufficiency (Acute) Respiratory compromise (Acute) Respiratory distress (Acute) Sepsis (Acute) Tachycardia (Acute) Plan: A/P 62 yr old female with pmh sig for htn, hld, unresectable colon ca sbo s/p abd surgery 04/14/18 with probable infection involving the mesh placed during the surgery now brought to the Er from [facility] for lethargy and fever now being evaluated by ID for abd wall cellulitis with recent cultures may 03 showing pseudomons and c. famata, with additonal abdominal wound and UC showing yeast species in both Discuss with ID, plan to continue Iv antibiotics , ID recommends mesh removal for infection Per discussion with PMD and surgical team - pt improving and no surgical intervention at this time , will continue to monitor clinical status Per discussion with [facility] not [facility] pt but other [facility] may, son only wants [facility] plans to be discussed with son futher re : disposition.
[2018-05-16] MEDS: Silver Sulfadiazine 1% Cream (25 gm) TP SCH ×2 (12:33→17:49)
--- NOTE | 2018-05-16 14:53 | CP.PCM.PN ---
Subjective - Date & Time of Evaluation Date of Evaluation: 05/16/18 Time of Evaluation: 14:52 - Subjective Subjective: Nephrology Consultation Note: Assessment: ARF/CKD 3 stable SBO s/p ex lap ? MESH infection left adrenal adenoma, Rt renal hyperdense cyst chronic hypercapnic respi failure Diabetic chronic Kidney Disease (E11.22) Hypertensive Chronic Kidney Disease (I12.9) Chronic Kidney Disease (N18.3) Stage 3 with 2.4 gm proteinuria (R80.9) likely due to DM/HTN/Obesity Anemia Vit D def morbid obesity, CAD s/p stent, COPD/SUMMER, rectal ca s/p colostomy hypomag Plan No acute need for renal replacement therapy at this time. HTN control on multiple meds; Monitor Input/Output, daily weights and renal function with basic metabolic panel PRBC as needed. d/w heme and okay to use KAVYA from heme perspective. on weekly aransep supplement lytes as needed lasix 40 mg oral daily. Adrenal adenoma work up with plasma renin/aldosterone, plasma metanephrine NEGATIVE. outpt 1 mg dexa suppression test repeat renal sono in 6 months to assess her Rt renal cyst Dose meds/antibiotics for reduced GFR. Avoid fleets enema/magnesium based laxatives. Avoid nephrotoxins/NSAIDs/ iodinated contrast (unless needed emergently) Glycemic control Further work up/management as per primary team Thanks for allowing me to participate in care of your patient. Will follow patient with you. Please call if any Qs. had d/w team Dr Dae Dawn Office: [phone] Chief Complaint;AMS Reason for consult: Acute Kidney Injury, CKD 3 HPI: Pt is a 62 F with hx of diabetes Mellitus (15 years), hypertension (years), CKD 3 with baseline cr 1.2-1.3 recently admitted after complicated abdominal surgery that represents w/ abdominal pain. Was recommended to get mesh removed last admission but refusing and still refusing per surgical service. She does not know why she is in the hospital. She denies n/v. She endorses reduced po intake. ROS: a full detailed ROS is negative except as in my hpi. she feels same. no new complaints Physical Examination: General Appearance: comfortable,morbidly obese. Vitals reviewed and noted as below Head; Atraumatic, normocephalic ENT: dry mucosa EYES: Pupils are equal, round and reactive to light accommodation. Eye muscles and extraocular movement intact. Sclera is anicteric. Neck; supple no lymphadenopathy, no thyromegaly or bruit Lungs: Normal respiratory rate/effort. Breath sounds bilateral equal, diminished at bases but overall limited exam due to her obesity Heart: normal rate. s1s2 normal. No rub or gallop. Extremities: 1+ edema, non pitting lymphedema as well. No varicose veins Neurological: Patient is sleepy today follow commands Skin: Warm and dry. Normal turgor. No rash. Palpitation: Normal elasticity for age Abdomen: Abdomen is + colostomy Psych: nml affect MSK: no joint tenderness or swelling. Digits and nails normal, no deformity : kidney or bladder not palpable Labs/imaging reviewed. Past medical history, past surgical history, family history, social history, allergy reviewed and noted as below Family hx: no hx of CKD. Rest non-contributory Objective - Vital Signs/Intake and Output Vital Signs (last 24 hours): Temp Pulse Resp BP Pulse Ox 97.9 F 72 18 167/58 H 97 05/16/18 12:00 05/16/18 12:00 05/16/18 12:00 05/16/18 12:00 05/16/18 00:01 Intake and Output: 05/16/18 05/16/18 06:59 18:59 Intake Total 640 Output Total 250 Balance 390 - Medications Medications: Current Medications Acetaminophen (Tylenol 325mg Tab) 650 mg PO Q4H PRN PRN Reason: Pain, Mild (1-3) Albuterol/Ipratropium (Duoneb 3 Mg/0.5 Mg (3 Ml) Ud) 3 ml IH [id number] [facility] Last Admin: 05/16/18 13:18 Dose: 3 ml Albuterol/Ipratropium (Duoneb 3 Mg/0.5 Mg (3 Ml) Ud) 3 ml IH Q2H PRN PRN Reason: Shortness of Breath Amlodipine Besylate (Norvasc) 10 mg PO DAILY [facility] Last Admin: 05/16/18 11:35 Dose: 10 mg Apixaban (Eliquis) 2.5 mg PO BID [facility]; Protocol Last Admin: 05/16/18 11:34 Dose: 2.5 mg Arformoterol Tartrate (Brovana) 15 mcg IH [id number] [facility] Last Admin: 05/16/18 07:40 Dose: 15 mcg Armodafinil (Nuvigil 250 Mg Tab) 250 mg PO DAILY [facility] Aspirin (Ecotrin) 81 mg PO DAILY [facility] Last Admin: 05/16/18 11:33 Dose: 81 mg Atorvastatin Calcium (Lipitor) 20 mg PO HS [facility] Last Admin: 05/15/18 22:25 Dose: 20 mg Budesonide (Pulmicort Respules) 0.5 mg IH [id number] [facility] Last Admin: 05/16/18 07:40 Dose: 0.5 mg Clonazepam (Klonopin) 1 mg PO HS [facility]; Protocol Stop: 05/19/18 23:59 Last Admin: 05/15/18 22:56 Dose: 1 mg Clonidine HCl (Catapres-Tts3 0.3 Mg/24 Hr) 1 patch TD Q7D@1000 JR Darbepoetin Timothy (Aranesp) 150 mcg SC QWK [facility] Last Admin: 05/14/18 12:26 Dose: 150 mcg Docusate Sodium (Colace) 100 mg PO TID [facility] Last Admin: 05/16/18 11:34 Dose: 100 mg Ergocalciferol (Drisdol 50,000 Intl Units Cap) 1 cap PO Q7D [facility] Last Admin: 05/11/18 23:12 Dose: 1 cap Ferrous Gluconate (Fergon) 324 mg PO DAILY [facility] Last Admin: 05/16/18 11:34 Dose: 324 mg Furosemide (Lasix) 40 mg PO DAILY [facility] Last Admin: 05/16/18 11:34 Dose: 40 mg Hydralazine HCl (Apresoline) 100 mg PO TID [facility] Last Admin: 05/16/18 11:39 Dose: 100 mg Hydromorphone HCl (Dilaudid) 2 mg PO Q4 PRN PRN Reason: Pain Last Admin: 05/16/18 12:33 Dose: 2 mg Micafungin Sodium 100 mg/ (Sodium Chloride) 100 mls @ 100 mls/hr IV DAILY [facility]; Protocol Stop: 05/20/18 22:00 Last Admin: 05/16/18 10:55 Dose: 100 mls/hr Cefepime HCl (Maxipime 1gm) 1 gm in 100 mls @ 100 mls/hr IVPB Q12 [facility]; Protocol Stop: 05/20/18 22:16 Last Admin: 05/16/18 11:40 Dose: 100 mls/hr Insulin Detemir (Levemir) 20 unit SC HS [facility] Last Admin: 05/15/18 22:02 Dose: Not Given Insulin Human Regular (Humulin R Low) 0 units SC ACHS [facility]; Protocol Last Admin: 05/16/18 12:33 Dose: Not Given Isosorbide Mononitrate (Imdur) 60 mg PO DAILY [facility] Last Admin: 05/16/18 11:33 Dose: 60 mg Labetalol HCl (Trandate) 300 mg PO Q8 [facility] Last Admin: 05/16/18 05:36 Dose: 300 mg Metoclopramide HCl (Reglan) 5 mg PO [facility] Last Admin: 05/16/18 11:37 Dose: Not Given Metronidazole (Flagyl) 500 mg PO Q8 [facility]; Protocol Stop: 05/21/18 14:01 Last Admin: 05/16/18 05:36 Dose: 500 mg Nifedipine (Procardia Xl) 60 mg PO QPM [facility] Last Admin: 05/15/18 17:53 Dose: 60 mg Nystatin (Nystop Topical Powder) 0 gm TOP TID [facility] Last Admin: 05/16/18 11:36 Dose: 1 applic Ondansetron HCl (Zofran Inj) 4 mg IVP Q4H PRN PRN Reason: Nausea/Vomiting Pantoprazole Sodium (Protonix Ec Tab) 20 mg PO ACB [facility] Last Admin: 05/16/18 08:44 Dose: 20 mg Pregabalin (Lyrica) 50 mg PO BID [facility] Last Admin: 05/16/18 11:39 Dose: 50 mg Saliva Substitute (Saliva Substitute) 0 ml PO 5XD PRN PRN Reason: DRY MOUTH Silver Sulfadiazine (Silvadene 1% 25 Gm) 0 gm TP BID [facility] Last Admin: 05/16/18 12:33 Dose: 1 gm Simethicone (Mylicon Chew Tab) 80 mg PO PCHS PRN PRN Reason: GI distress Vitamin B Complex/Vit C/Folic Acid (Nephro-Holland) 1 tab PO 0800 [facility] Last Admin: 05/16/18 08:44 Dose: 1 tab - Labs Labs: 05/14/18 07:30 12/11/18 07:30 PT 15.0 SECONDS (9.4-12.5) H 05/11/18 13:45 INR 1.30 05/11/18 13:45 APTT 20.4 Seconds (25.1-36.5) L 05/11/18 13:45
[2018-05-16] MEDS: NIFEdipine 60 mg ER Tab PO SCH (17:48)
[2018-05-16] MEDS: Insulin Detemir 100 units/ml Vial (Levemir) SC SCH (21:49)
--- NOTE | 2018-05-16 23:41 | PN ---
DATE: 05/16/2018 LOCATION: Room 272, bed 2. Detailed note has been already written by Tiffanie Osborne. This is additional note. SUBJECTIVE: The patient was admitted from halfway due to altered mental status. The patient was getting drowsy. The patient was found to be having fever, and also chest x-ray showed congestive changes. The patient had morbid obesity, COPD, congestive heart failure, DVT/PE history in the past, history of bowel obstruction recently with colostomy. She was admitted with bowel obstruction on 04/16/2018, had exploratory laparotomy with lysis of adhesion, and ventral hernia repair with colostomy, possibly the patient infection involving the mesh, placed for the hernia repair. It was recommended that she undergo an additional procedure to have the mesh removed, however, the patient refused surgical intervention at that time. The patient is lying flat in bed without any chest pain, shortness of breath, or palpitation. PHYSICAL EXAMINATION: VITAL SIGNS: Blood pressure 167/58, yesterday was 148/53; respirations 18; pulse 72; and temperature 97.9. HEENT: Head: Normocephalic. Eyes: Conjunctivae pale. LUNGS: No significant rash. CARDIOVASCULAR: S1, S2. ABDOMEN: Surgery as mentioned before. EXTREMITIES: No clubbing. No cyanosis. LABORATORY DATA: Her random sugar is 136. Other labs were done early and they were reported in our previous notes. The patient is much more alert now, and she is afebrile. She is lying flat without any respiratory distress. The patient is on hydralazine 100 mg t.i.d., clonidine 0.3 mg patch once a week, Duoneb hand nebulizer therapy, aspirin 81 daily, Eliquis 2.5 b.i.d., labetalol 300 mg p.o. every 8 hours, Protonix 20 mg before meal, nifedipine ER 60 mg p.o. daily, armodafinil 250 mg p.o. daily, amlodipine 10 daily, micafungin 100 mg IV daily, cefepime 1 g IV every 12 hours, Lyrica 50 mg b.i.d., atorvastatin 20 daily, insulin 20 units subcu at bedtime, furosemide 40 daily, isosorbide mononitrate 60 daily, metronidazole 500 mg p.o. every 8 hours. The patient's slight troponin elevated on admission, probably related to abnormal kidney function which was 50 and creatinine 1.4, so we will continue the present therapy and will follow up. Pamela Hernandez MD
[2018-05-17] MEDS: Albuterol-Ipratrop 3 mg / 0.5 (3 ml) UD IH SCH ×4 (01:56→21:15)
[2018-05-17 07:28] LABS: BASO # 0.04 K/mm3 (0.0-2.0); BASO % 0.6 % (0.0-3.0); EOS # 0.3 (0.0-0.7); EOS % 4.3 % (1.5-5.0); GRAN # 3.94 (1.4-6.5); HEMOGLOBIN 8.5 g/dL (12.0-16.0); LYMPH # 1.9 (1.2-3.4); LYMPH % 27.7 % (22.0-35.0); MEAN CELL VOLUME 95.4 fl (80.0-105.0); MEAN CORPUSCULAR HEMOGLOBIN 27.9 pg (25.0-35.0); MEAN CORPUSCULAR HGB CONC 29.2 g/dl (31.0-37.0); MEAN PLATELET VOLUME 9.9 fl (7.0-11.0); MONO # 0.7 (0.1-0.6); MONO % 10.4 % (1.0-6.0); RBC 3.05 10^6/uL (3.5-6.1); RED CELL DISTRIBUTION WIDTH 19.1 % (11.5-14.5); WHITE BLOOD COUNT 6.9 10^3/uL (4.5-11.0)
[2018-05-17 07:36] LABS: CALCIUM 8.4 mg/dL (8.4-10.5)
--- NOTE | 2018-05-17 07:50 | CP.PCM.PN ---
Subjective - Date & Time of Evaluation Date of Evaluation: 05/17/18 Time of Evaluation: 06:40 - Subjective Subjective: Lying in bed, awake, no distress, morning care being done by RN'S Reason for consultation and follow up: Cardiac evaluation of history of congestive heart failure, transferred from [facility] due to lethargy Seen and examined by me and Dr. Hernandez Objective - Vital Signs/Intake and Output Vital Signs (last 24 hours): Temp Pulse Resp BP Pulse Ox 98.5 F 75 20 128/51 L 97 05/17/18 06:00 05/17/18 06:22 05/17/18 06:00 05/17/18 06:22 05/17/18 06:00 Intake and Output: 05/17/18 05/17/18 06:59 18:59 Intake Total 220 Output Total 350 Balance -130 - Medications Medications: Current Medications Acetaminophen (Tylenol 325mg Tab) 650 mg PO Q4H PRN PRN Reason: Pain, Mild (1-3) Albuterol/Ipratropium (Duoneb 3 Mg/0.5 Mg (3 Ml) Ud) 3 ml IH [id number] [facility] Last Admin: 05/17/18 01:56 Dose: Not Given Albuterol/Ipratropium (Duoneb 3 Mg/0.5 Mg (3 Ml) Ud) 3 ml IH Q2H PRN PRN Reason: Shortness of Breath Amlodipine Besylate (Norvasc) 10 mg PO DAILY [facility] Last Admin: 05/16/18 11:35 Dose: 10 mg Apixaban (Eliquis) 2.5 mg PO BID [facility]; Protocol Last Admin: 05/16/18 17:48 Dose: 2.5 mg Arformoterol Tartrate (Brovana) 15 mcg IH [id number] [facility] Last Admin: 05/16/18 19:53 Dose: 15 mcg Armodafinil (Nuvigil 250 Mg Tab) 250 mg PO DAILY [facility] Aspirin (Ecotrin) 81 mg PO DAILY [facility] Last Admin: 05/16/18 11:33 Dose: 81 mg Atorvastatin Calcium (Lipitor) 20 mg PO HS [facility] Last Admin: 05/16/18 21:46 Dose: 20 mg Budesonide (Pulmicort Respules) 0.5 mg IH [id number] [facility] Last Admin: 05/16/18 19:54 Dose: 0.5 mg Clonazepam (Klonopin) 1 mg PO HS [facility]; Protocol Stop: 05/19/18 23:59 Last Admin: 05/16/18 21:48 Dose: 1 mg Clonidine HCl (Catapres-Tts3 0.3 Mg/24 Hr) 1 patch TD Q7D@1000 JR Darbepoetin Timothy (Aranesp) 150 mcg SC QWK [facility] Last Admin: 05/14/18 12:26 Dose: 150 mcg Docusate Sodium (Colace) 100 mg PO TID [facility] Last Admin: 05/16/18 17:48 Dose: 100 mg Ergocalciferol (Drisdol 50,000 Intl Units Cap) 1 cap PO Q7D [facility] Last Admin: 05/11/18 23:12 Dose: 1 cap Ferrous Gluconate (Fergon) 324 mg PO DAILY [facility] Last Admin: 05/16/18 11:34 Dose: 324 mg Furosemide (Lasix) 40 mg PO DAILY [facility] Last Admin: 05/16/18 11:34 Dose: 40 mg Hydralazine HCl (Apresoline) 100 mg PO TID [facility] Last Admin: 05/16/18 17:47 Dose: 100 mg Hydromorphone HCl (Dilaudid) 2 mg PO Q4 PRN PRN Reason: Pain Last Admin: 05/17/18 03:51 Dose: 2 mg Micafungin Sodium 100 mg/ (Sodium Chloride) 100 mls @ 100 mls/hr IV DAILY [facility]; Protocol Stop: 05/20/18 22:00 Last Admin: 05/16/18 10:55 Dose: 100 mls/hr Cefepime HCl (Maxipime 1gm) 1 gm in 100 mls @ 100 mls/hr IVPB Q12 [facility]; Protocol Stop: 05/20/18 22:16 Last Admin: 05/16/18 21:49 Dose: 100 mls/hr Insulin Detemir (Levemir) 20 unit SC HS [facility] Last Admin: 05/16/18 21:49 Dose: Not Given Insulin Human Regular (Humulin R Low) 0 units SC ACHS [facility]; Protocol Last Admin: 05/16/18 21:48 Dose: Not Given Isosorbide Mononitrate (Imdur) 60 mg PO DAILY [facility] Last Admin: 05/16/18 11:33 Dose: 60 mg Labetalol HCl (Trandate) 300 mg PO Q8 [facility] Last Admin: 05/17/18 06:22 Dose: 300 mg Metoclopramide HCl (Reglan) 5 mg PO ACHS [facility] Last Admin: 05/16/18 21:48 Dose: 5 mg Metronidazole (Flagyl) 500 mg PO Q8 [facility]; Protocol Stop: 05/21/18 14:01 Last Admin: 05/17/18 06:22 Dose: 500 mg Nifedipine (Procardia Xl) 60 mg PO QPM [facility] Last Admin: 05/16/18 17:48 Dose: 60 mg Nystatin (Nystop Topical Powder) 0 gm TOP TID [facility] Last Admin: 05/16/18 17:48 Dose: 1 applic Ondansetron HCl (Zofran Inj) 4 mg IVP Q4H PRN PRN Reason: Nausea/Vomiting Pantoprazole Sodium (Protonix Ec Tab) 20 mg PO ACB [facility] Last Admin: 05/16/18 08:44 Dose: 20 mg Pregabalin (Lyrica) 50 mg PO BID [facility] Last Admin: 05/16/18 17:47 Dose: 50 mg Saliva Substitute (Saliva Substitute) 0 ml PO 5XD PRN PRN Reason: DRY MOUTH Silver Sulfadiazine (Silvadene 1% 25 Gm) 0 gm TP BID [facility] Last Admin: 05/16/18 17:49 Dose: 25 gm Simethicone (Mylicon Chew Tab) 80 mg PO PCHS PRN PRN Reason: GI distress Vitamin B Complex/Vit C/Folic Acid (Nephro-Holland) 1 tab PO 0800 [facility] Last Admin: 05/16/18 08:44 Dose: 1 tab - Labs Labs: 05/17/18 06:30 05/17/18 06:30 PT 15.0 SECONDS (9.4-12.5) H 05/11/18 13:45 INR 1.30 05/11/18 13:45 APTT 20.4 Seconds (25.1-36.5) L 05/11/18 13:45 - Constitutional Appears: Non-toxic, No Acute Distress - Head Exam Head Exam: NORMAL INSPECTION, NORMOCEPHALIC - Eye Exam Eye Exam: Normal appearance Pupil Exam: NORMAL ACCOMODATION - ENT Exam ENT Exam: Mucous Membranes Moist, Normal Exam - Respiratory Exam Respiratory Exam: Decreased Breath Sounds, NORMAL BREATHING PATTERN - Cardiovascular Exam Cardiovascular Exam: +S1, +S2 - GI/Abdominal Exam GI & Abdominal Exam: Soft, Normal Bowel Sounds Additional comments: colostomy - Extremities Exam Additional comments: 2+edema - Neurological Exam Neurological Exam: Alert, Awake, Oriented x3 - Psychiatric Exam Psychiatric exam: Normal Affect, Normal Mood - Skin Skin Exam: Dry, Normal Color, Warm Additional comments: buttocks skin breakdown Assessment and Plan - Assessment and Plan (Free Text) Assessment: A 62 year old morbidly obese female who got transferred to [facility] from [facility] due to altered mental status. Patient is known to service from previous multiple admissions. History of coronary artery disease with stent of circumflex,hypertension,hyperlipidemia,diabetes,sleep apnea,COPD, congestive heart failure, DVT/PE. History of bowel resection in the past with colostomy. She was admitted to [facility] due to small bowel obstruction and on 04/16/18 she had explor-lap and lysis of adhesions and ventral hernia repair with revision of colostomy (Dr. Mckeon).Postoperatively, patient had infection involving th mesh placed for the hernia repair and it was recommended that she undergo an additional procedure to have the mesh removed however patient refused surgical procedure. She was stablized and transferred to [facility]. Chest X ray showed severe cardiomegaly,moderate to severe pulmonary congestion.Not in respiratory distress, On nasal cannula 4l/min. Troponin 0.14/.15, denies chest pain, EKG- normal sinus rhythm, elevated due to renal insuffiency. Will treat medically. Surgical follow up for abdominal wound. Symptoms clinically improved.More awake and responsive. Plan: Clinically improved, more awake and responsive No distress, Denies chest pain Heart rate controlled Blood pressure controlled Cardiac status stable No further cardiac work up at this point On Norvasc 10 mg daily, Eliquis 2.5 mg BID, ASA 81 mg daily, Lipitor 20 mg daily,Clonidine patch weekly,Lasix 40 mg daily, Labetolol 300 mg every 8 hours, Nifedipine 60 mg daily, Imdur 60 mg daily Continue current treatment Continue current medications ID on Consult Discharge planning Will follow up Plan and treatment discussed with Dr. Hernandez
[2018-05-17] MEDS: Insulin Reg-LOW-Coverage SC SCH ×5 (08:16→22:18)
[2018-05-17] MEDS: Arformoterol 15 mcg/2 ml Inh Sol IH SCH ×2 (08:24→21:15)
[2018-05-17] MEDS: Budesonide 0.5 mg/2 ml Inhal Susp UD IH SCH (08:24)
[2018-05-17] MEDS: Multivitamin Vitamin B Complex (Nephro-Vite) Tab PO SCH (08:27)
[2018-05-17] MEDS: Pantoprazole 20 mg EC Tab PO SCH (08:27)
[2018-05-17] MEDS: Armodafinil 250 mg Tab PO SCH (10:00)
[2018-05-17] MEDS: Micafungin 100 MG in Sodium Chloride 0.9% 100 ML IV SCH (10:01)
[2018-05-17] MEDS ORDERED: Sod Polystyrene Sulf 15 gm/60 ml Susp PO ONE (10:10)
--- NOTE | 2018-05-17 10:16 | CP.PCM.APN ---
Subjective - Date & Time of Evaluation Date of Evaluation: 05/17/18 Time of Evaluation: 09:45 - Subjective Subjective: pt seen in bed , in no distress - reports medications from last night make her sleepy Review of Systems - Constitutional Constitutional: Lethargy Objective - Vital Signs/Intake and Output Vital Signs (last 24 hours): Temp Pulse Resp BP Pulse Ox 98.5 F 68 20 162/58 H 97 05/17/18 06:00 05/17/18 09:59 05/17/18 06:00 05/17/18 10:00 05/17/18 06:00 Intake and Output: 05/17/18 05/17/18 06:59 18:59 Intake Total 220 Output Total 350 Balance -130 - Medications Medications: Current Medications Acetaminophen (Tylenol 325mg Tab) 650 mg PO Q4H PRN PRN Reason: Pain, Mild (1-3) Albuterol/Ipratropium (Duoneb 3 Mg/0.5 Mg (3 Ml) Ud) 3 ml IH [id number] [facility] Last Admin: 05/17/18 08:24 Dose: 3 ml Albuterol/Ipratropium (Duoneb 3 Mg/0.5 Mg (3 Ml) Ud) 3 ml IH Q2H PRN PRN Reason: Shortness of Breath Amlodipine Besylate (Norvasc) 10 mg PO DAILY [facility] Last Admin: 05/17/18 09:59 Dose: 10 mg Apixaban (Eliquis) 2.5 mg PO BID [facility]; Protocol Last Admin: 05/17/18 10:00 Dose: 2.5 mg Arformoterol Tartrate (Brovana) 15 mcg IH [id number] [facility] Last Admin: 05/17/18 08:24 Dose: 15 mcg Armodafinil (Nuvigil 250 Mg Tab) 250 mg PO DAILY [facility] Last Admin: 05/17/18 10:00 Dose: 250 mg Aspirin (Ecotrin) 81 mg PO DAILY [facility] Last Admin: 05/17/18 09:59 Dose: 81 mg Atorvastatin Calcium (Lipitor) 20 mg PO HS [facility] Last Admin: 05/16/18 21:46 Dose: 20 mg Budesonide (Pulmicort Respules) 0.5 mg IH [id number] [facility] Last Admin: 05/17/18 08:24 Dose: 0.5 mg Clonazepam (Klonopin) 1 mg PO HS JR; Protocol Stop: 05/19/18 23:59 Last Admin: 05/16/18 21:48 Dose: 1 mg Clonidine HCl (Catapres-Tts3 0.3 Mg/24 Hr) 1 patch TD Q7D@1000 JR Darbepoetin Timothy (Aranesp) 150 mcg SC QWK JR Last Admin: 05/14/18 12:26 Dose: 150 mcg Docusate Sodium (Colace) 100 mg PO TID [facility] Last Admin: 05/17/18 10:00 Dose: 100 mg Ergocalciferol (Drisdol 50,000 Intl Units Cap) 1 cap PO Q7D [facility] Last Admin: 05/11/18 23:12 Dose: 1 cap Ferrous Gluconate (Fergon) 324 mg PO DAILY [facility] Last Admin: 05/16/18 11:34 Dose: 324 mg Furosemide (Lasix) 40 mg PO DAILY [facility] Last Admin: 05/17/18 10:00 Dose: 40 mg Hydralazine HCl (Apresoline) 100 mg PO TID [facility] Last Admin: 05/17/18 09:59 Dose: 100 mg Hydromorphone HCl (Dilaudid) 2 mg PO Q4 PRN PRN Reason: Pain Last Admin: 05/17/18 03:51 Dose: 2 mg Micafungin Sodium 100 mg/ (Sodium Chloride) 100 mls @ 100 mls/hr IV DAILY [facility]; Protocol Stop: 05/20/18 22:00 Last Admin: 05/17/18 10:01 Dose: 100 mls/hr Cefepime HCl (Maxipime 1gm) 1 gm in 100 mls @ 100 mls/hr IVPB Q12 [facility]; Protocol Stop: 05/20/18 22:16 Last Admin: 05/16/18 21:49 Dose: 100 mls/hr Insulin Detemir (Levemir) 20 unit SC HS [facility] Last Admin: 05/16/18 21:49 Dose: Not Given Insulin Human Regular (Humulin R Low) 0 units SC ACHS [facility]; Protocol Last Admin: 05/17/18 08:16 Dose: Not Given Isosorbide Mononitrate (Imdur) 60 mg PO DAILY [facility] Last Admin: 05/17/18 09:59 Dose: 60 mg Labetalol HCl (Trandate) 300 mg PO Q8 [facility] Last Admin: 05/17/18 06:22 Dose: 300 mg Metoclopramide HCl (Reglan) 5 mg PO ACHS [facility] Last Admin: 05/17/18 08:27 Dose: 5 mg Metronidazole (Flagyl) 500 mg PO Q8 [facility]; Protocol Stop: 05/21/18 14:01 Last Admin: 05/17/18 06:22 Dose: 500 mg Nifedipine (Procardia Xl) 60 mg PO QPM [facility] Last Admin: 05/16/18 17:48 Dose: 60 mg Nystatin (Nystop Topical Powder) 0 gm TOP TID [facility] Last Admin: 05/16/18 17:48 Dose: 1 applic Ondansetron HCl (Zofran Inj) 4 mg IVP Q4H PRN PRN Reason: Nausea/Vomiting Pantoprazole Sodium (Protonix Ec Tab) 20 mg PO ACB [facility] Last Admin: 05/17/18 08:27 Dose: 20 mg Pregabalin (Lyrica) 50 mg PO BID [facility] Last Admin: 05/17/18 10:00 Dose: 50 mg Saliva Substitute (Saliva Substitute) 0 ml PO 5XD PRN PRN Reason: DRY MOUTH Silver Sulfadiazine (Silvadene 1% 25 Gm) 0 gm TP BID [facility] Last Admin: 05/16/18 17:49 Dose: 25 gm Simethicone (Mylicon Chew Tab) 80 mg PO PCHS PRN PRN Reason: GI distress Sodium Polystyrene Sulfonate (Kayexalate Susp) 15 gm PO ONCE ONE Stop: 05/17/18 10:11 Vitamin B Complex/Vit C/Folic Acid (Nephro-Holland) 1 tab PO 0800 [facility] Last Admin: 05/17/18 08:27 Dose: 1 tab - Labs Labs: 05/17/18 06:30 05/17/18 06:30 PT 15.0 SECONDS (9.4-12.5) H 05/11/18 13:45 INR 1.30 05/11/18 13:45 APTT 20.4 Seconds (25.1-36.5) L 05/11/18 13:45 - Constitutional Appears: No Acute Distress, Chronically Ill - Head Exam Head Exam: ATRAUMATIC, NORMOCEPHALIC - ENT Exam ENT Exam: Mucous Membranes Moist - Respiratory Exam Respiratory Exam: Decreased Breath Sounds, NORMAL BREATHING PATTERN - Cardiovascular Exam Cardiovascular Exam: REGULAR RHYTHM, +S1, +S2 - GI/Abdominal Exam GI & Abdominal Exam: Normal Bowel Sounds Additional comments: abd dressings and colostomy bag intact - Back Exam Back Exam: NORMAL INSPECTION - Neurological Exam Neurological Exam: Awake - Psychiatric Exam Additional comments: very somnolent - Skin Skin Exam: Dry, Warm Assessment and Plan - Assessment and Plan (Free Text) Plan: All Active Problems COPD (chronic obstructive pulmonary disease) (Acute) Congestive heart failure (Acute) Urinary tract infection (Acute) Abdominal pain (Acute) Abscess (Acute) Acute hypercapnic respiratory failure due to obstructive sleep apnea (Acute) Acute kidney injury (Acute) Acute pulmonary embolus (Acute) Gpnnk-uk-tgstgej kidney injury (Acute) Altered mental status (Acute) Anemia (Acute) Anemia of chronic disease (Acute) Back pain (Acute) Chronic kidney disease-mineral and bone disorder (Acute) Dehydration (Acute) Diastolic CHF (Acute) Hypercapnic respiratory failure, chronic (Acute) Hyperglycemia (Acute) Hypertension (Acute) Hypertensive chronic kidney disease (Acute) Intractable abdominal pain (Acute) Intractable vomiting (Acute) Leukocytosis (Acute) Nephrotic range proteinuria (Acute) Partial small bowel obstruction (Acute) Pneumonia (Acute) Proteinuria (Acute) Pulmonary edema (Acute) Rectal carcinoma (Acute) Renal failure (Acute) Renal failure (ARF), acute on chronic (Acute) Renal failure (ARF), acute on chronic (Acute) Renal insufficiency (Acute) Respiratory compromise (Acute) Respiratory distress (Acute) Sepsis (Acute) Tachycardia (Acute) Plan: A/P 62 yr old female with pmh sig for htn, hld, unresectable colon ca sbo s/p abd surgery 04/14/18 with probable infection involving the mesh placed during the surgery now brought to the Er from [facility] for lethargy and fever now being evaluated by ID for abd wall cellulitis with recent cultures may 03 showing pseudomons and c. famata, with additonal abdominal wound and UC showing yeast species in both Discuss with ID, plan to continue Iv antibiotics , ID recommends mesh removal for infection Per discussion with PMD and surgical team - pt improving and no surgical i ntervention at this time , will continue to monitor clinical status kyperkalemia treated, labs ordered for am Per discussion with [facility] not accept pt but other [facility] may, son only wants [facility] is still denying patient to return subacute per notes. plans to be discussed with son futher re : disposition. BPCI/TIC - BPCIA/TIC Educated pt/family on BPCIA/CIR/Med to Bed Programs: Yes Flyers given, including [facility] Beneficiary letter: Yes Pt/family verbalized understanding & agreed to program: Yes
[2018-05-17] MEDS: Cefepime 1gm in NS 100ml 1 GM/100 ML BAG IVPB SCH ×2 (11:30→21:58)
[2018-05-17] MEDS: Nystatin 100,000 Units/gm Topical Pow(15 gm) TOP SCH ×3 (11:45→18:30)
--- NOTE | 2018-05-17 11:45 | PN ---
PULMONARY PROGRESS NOTE DATE: 05/17/2018 REFERRING PHYSICIAN: Elroy Florian MD SUBJECTIVE: The patient is lying in bed, appears very sleepy, tired, reports that she did not wear BiPAP machine last night. No headache, rhinitis, cough, shortness of breath, chest pain, nausea, vomiting, diarrhea, leg pain or leg swelling reported. Does report some abdominal pain at surgical site. PHYSICAL EXAMINATION GENERAL: No acute distress. VITAL SIGNS: Blood pressure 162/58, pulse 68, temperature 98.5 and oxygen saturation 97% on nasal cannula. HEENT: Moist mucous membranes. Mallampati score of 4. Crowded airway. NECK: Supple. No JVD. CARDIOVASCULAR: S1 and S2 audible. LUNGS: Fair airflow bilaterally. ABDOMEN: Obese. Dressing to surgical site. Colostomy noted with liquid stool. Abdomen tender on palpation. Positive bowel sounds. EXTREMITIES: +1 edema, bilateral lower extremities. NEUROLOGIC: Good sleep, easily arousable, verbal and follows simple commands. LABORATORY DATA: Reviewed. WBC 6.9, RBC 3.05, hemoglobin 8.5, hematocrit 29.1, and platelets 349. Sodium 137, potassium 5.2, chloride 106, carbon dioxide 28, anion gap 9, BUN 53, creatinine 1.8, GFR 28, random glucose 136 and calcium 8.4. DIAGNOSTICS: Chest x-ray pending. MEDICATIONS: Reviewed. Tylenol 650 mg every 4 hours p.r.n. for mild pain, DuoNeb 3 mL inhalation every 2 hours p.r.n., DuoNeb 3 mL inhalation every 6 hours, Norvasc 10 mg p.o. daily, Eliquis 2.5 mg p.o. twice a day, Brovana 15 mcg every 12 hours, Nuvigil 250 mg p.o. daily, aspirin 81 mg p.o. daily, Lipitor 20 mg at bedtime, Pulmicort 0.5 mg inhalation every 12 hours, cefepime 1 gram every 12 hours, Klonopin 1 mg at bedtime, clonidine 0.3 mg patch daily, Aranesp 150 mg weekly, Colace 100 mg p.o. three times a day, ergocalciferol 50,000 units weekly, ferrous gluconate 324 mg p.o. daily, Lasix 40 mg daily, hydralazine 100 mg three times a day, Dilaudid 2 mg every 4 hours p.r.n., Levemir 20 units at bedtime, Humulin R sliding scale, isosorbide mononitrate 60 mg p.o. daily, labetalol 300 mg every 8 hours, Reglan 5 mg p.o. a.c. and at bedtime, Flagyl 500 mg p.o. every 8 hours, micafungin 100 mg daily, Procardia XL 60 mg in the afternoon, nystatin topically three times a day to affected area, Zofran 4 mg every 4 hours p.r.n., Protonix 20 mg daily, Lyrica 50 mg twice a day, saliva substitute five times a day p.r.n., Silvadene topically to affected area twice a day, simethicone 80 mg p.r.n. and Nephro-Holland one tab p.o. daily. IMPRESSION AND PLAN: Status post laparotomy with small-bowel obstruction with hernia repair and relocation of colostomy, hypoventilation syndrome with CO2 retention, hypoxia requiring non-invasive ventilation, history of pulmonary embolism and deep venous thrombosis in the remote past, diabetes, chronic obstructive lung disease, hypertension, morbid obesity, recurrent abdominal pain, pulmonary hypertension, may have mesh infection, and wound culture final report shows Celsa albicans. Continue antibiotics as per Infectious Disease. Continue to followup with surgical team. Spoke with the patient this morning and encouraged the use of bilevel positive airway pressure at bedtime. Discussed that her daytime hypersomia is related to not using the bilevel positive airway pressure at night, the patient verbalized understanding. Continue daytime stimulant, continue anticoagulation therapy, inhaled bronchodilators, gastric prophylaxis, pressure ulcer precautions, sleep apnea precaution, and head of bed elevated at 45 degrees. We will decrease the patient's Lasix to 20 mg daily. Need to followup labs. This patient was seen and examined with Dr. Ayala. Discussed assessment and plan as described above. Thank you for this consult and we will follow with you. Breezy Schafer, FORMULATION SCIENTIST Mohammad Lucy, MD [facility] # [id number]
[2018-05-17] MEDS: Silver Sulfadiazine 1% Cream (25 gm) TP SCH ×2 (11:46→18:29)
--- NOTE | 2018-05-17 11:54 | RAD ---
Date of service: 05/17/2018 HISTORY: rule out CHF COMPARISON: 05/11/2018. FINDINGS: LUNGS: Persistent pulmonary vascular congestion improved compared to the prior study. PLEURA: No significant pleural effusion identified, no pneumothorax apparent. CARDIOVASCULAR: No atherosclerotic calcification present Stable cardiomegaly OSSEOUS STRUCTURES: No significant abnormalities. VISUALIZED UPPER ABDOMEN: Normal. OTHER FINDINGS: None. IMPRESSION: Improving CHF/pulmonary vascular congestion.
--- NOTE | 2018-05-17 12:34 | CP.PCM.PN ---
Subjective - Date & Time of Evaluation Date of Evaluation: 05/17/18 Time of Evaluation: 10:55 - Subjective Subjective: No fevers, not in distress but feels sleepy. Objective - Vital Signs/Intake and Output Vital Signs (last 24 hours): Temp Pulse Resp BP Pulse Ox 98.1 F 78 20 165/60 H 99 05/15/18 12:00 05/15/18 14:00 05/15/18 12:00 05/15/18 13:53 05/15/18 06:00 Intake and Output: 05/15/18 05/15/18 06:59 18:59 Intake Total 240 Output Total 650 Balance -410 - Medications Medications: Current Medications Acetaminophen (Tylenol 325mg Tab) 650 mg PO Q4H PRN PRN Reason: Pain, Mild (1-3) Albuterol/Ipratropium (Duoneb 3 Mg/0.5 Mg (3 Ml) Ud) 3 ml IH [id number] [facility] Last Admin: 05/15/18 13:09 Dose: Not Given Albuterol/Ipratropium (Duoneb 3 Mg/0.5 Mg (3 Ml) Ud) 3 ml IH Q2H PRN PRN Reason: Shortness of Breath Amlodipine Besylate (Norvasc) 10 mg PO DAILY [facility] Last Admin: 05/15/18 09:45 Dose: 10 mg Apixaban (Eliquis) 2.5 mg PO BID [facility]; Protocol Last Admin: 05/15/18 09:45 Dose: 2.5 mg Arformoterol Tartrate (Brovana) 15 mcg IH [id number] [facility] Last Admin: 05/15/18 07:38 Dose: Not Given Armodafinil (Nuvigil 150 Mg Tab) 150 mg PO DAILY [facility] Last Admin: 05/15/18 09:46 Dose: 150 mg Aspirin (Ecotrin) 81 mg PO DAILY [facility] Last Admin: 05/15/18 09:45 Dose: 81 mg Atorvastatin Calcium (Lipitor) 20 mg PO HS [facility] Last Admin: 05/14/18 23:03 Dose: 20 mg Budesonide (Pulmicort Respules) 0.5 mg IH [id number] [facility] Last Admin: 05/15/18 07:38 Dose: Not Given Clonazepam (Klonopin) 1 mg PO HS [facility]; Protocol Stop: 05/19/18 23:59 Last Admin: 05/14/18 23:02 Dose: 1 mg Clonidine HCl (Catapres-Tts3 0.3 Mg/24 Hr) 1 patch TD Q7D@1000 JR Darbepoetin Timothy (Aranesp) 150 mcg SC QWK [facility] Last Admin: 05/14/18 12:26 Dose: 150 mcg Docusate Sodium (Colace) 100 mg PO TID [facility] Last Admin: 05/15/18 13:51 Dose: 100 mg Ergocalciferol (Drisdol 50,000 Intl Units Cap) 1 cap PO Q7D [facility] Last Admin: 05/11/18 23:12 Dose: 1 cap Ferrous Gluconate (Fergon) 324 mg PO DAILY [facility] Last Admin: 05/15/18 09:45 Dose: 324 mg Furosemide (Lasix) 40 mg PO DAILY [facility] Last Admin: 05/15/18 09:44 Dose: 40 mg Hydralazine HCl (Apresoline) 100 mg PO TID [facility] Last Admin: 05/15/18 13:46 Dose: 100 mg Hydromorphone HCl (Dilaudid) 2 mg PO Q4 PRN PRN Reason: Pain Last Admin: 05/15/18 13:52 Dose: 2 mg Micafungin Sodium 100 mg/ (Sodium Chloride) 100 mls @ 100 mls/hr IV DAILY [facility]; Protocol Stop: 05/20/18 22:00 Last Admin: 05/15/18 12:31 Dose: 100 mls/hr Cefepime HCl (Maxipime 1gm) 1 gm in 100 mls @ 100 mls/hr IVPB Q12 [facility]; Protocol Stop: 05/20/18 22:16 Last Admin: 05/15/18 09:43 Dose: 100 mls/hr Insulin Detemir (Levemir) 20 unit SC HS [facility] Last Admin: 05/14/18 22:59 Dose: Not Given Insulin Human Regular (Humulin R Low) 0 units SC ACHS [facility]; Protocol Last Admin: 05/15/18 16:36 Dose: Not Given Isosorbide Mononitrate (Imdur) 60 mg PO DAILY [facility] Last Admin: 05/15/18 09:46 Dose: 60 mg Labetalol HCl (Trandate) 300 mg PO Q8 [facility] Last Admin: 05/15/18 13:53 Dose: 300 mg Metoclopramide HCl (Reglan) 5 mg PO ACHS [facility] Last Admin: 05/15/18 12:31 Dose: 5 mg Metronidazole (Flagyl) 500 mg PO Q8 [facility]; Protocol Stop: 05/21/18 14:01 Last Admin: 05/15/18 13:52 Dose: 500 mg Nifedipine (Procardia Xl) 60 mg PO QPM [facility] Last Admin: 05/14/18 18:09 Dose: 60 mg Nystatin (Nystop Topical Powder) 0 gm TOP TID [facility] Last Admin: 05/15/18 09:47 Dose: 1 applic Ondansetron HCl (Zofran Inj) 4 mg IVP Q4H PRN PRN Reason: Nausea/Vomiting Pantoprazole Sodium (Protonix Ec Tab) 20 mg PO ACB [facility] Last Admin: 05/15/18 08:19 Dose: 20 mg Simethicone (Mylicon Chew Tab) 80 mg PO PCHS PRN PRN Reason: GI distress Vitamin B Complex/Vit C/Folic Acid (Nephro-Holland) 1 tab PO 0800 [facility] Last Admin: 05/15/18 08:19 Dose: 1 tab - Labs Labs: 05/14/18 07:30 05/14/18 07:30 PT 15.0 SECONDS (9.4-12.5) H 05/11/18 13:45 INR 1.30 05/11/18 13:45 APTT 20.4 Seconds (25.1-36.5) L 05/11/18 13:45 - Constitutional Appears: Chronically Ill - Head Exam Head Exam: NORMAL INSPECTION - Respiratory Exam Respiratory Exam: Decreased Breath Sounds - Cardiovascular Exam Cardiovascular Exam: +S1, +S2 - GI/Abdominal Exam GI & Abdominal Exam: Soft. absent: Tenderness Additional comments: dressings in place Assessment and Plan - Assessment and Plan (Free Text) Plan: Assessment abdominal wall cellulitis with probable infected abdominal mesh; most recent cu ltures from 05/03/2018 showed Pseudomonas and C. famata S/P small bowel obstruction in this patient with ventral wall hernia, S/P ventral incarcerated hernia repair, adhesiolysis and revision of colostomy S/P acute coronary syndrome with NSTEMI COPD history of VRE UTI history of severe sepsis secondary to left medial thigh abscess, growing Proteus, S/P incision and drainage DM HTN CAD Unresectable rectal cancer S/P chemotherapy and radiation therapy S/P colostomy S/P Port-a-cath placement morbid obesity with BMI 50 obstructive sleep apnea history of pulmonary embolism S/P IVC filter placement Plan continue Cefepime and Flagyl and Mycamine as well as intermittent Vancomycin (day 6) pending repeat abdominal wound cx; follow up further plans of surgery, but apparently the patient has been refusing to have the mesh removed as per other doctors will continue to follow clinically
--- NOTE | 2018-05-17 14:00 | PN ---
DATE: 05/16/2018 SUBJECTIVE: The patient is comfortable and lying in bed, no distress. No fever. Afebrile. She has no new complaints. She is just feeling weak, but clinically better. She slept good. PHYSICAL EXAMINATION: VITAL SIGNS: Temperature 98, heart rate 70, blood pressure 167/58, and respirations 18. HEAD AND NECK: Normal. No JVD. No thyromegaly. CHEST: Clear bilateral. CARDIAC: First sound and second sound normal. ABDOMEN: Obese and nontender. The wound is covered with gauze, right colostomy. The abdomen is soft, there are bowel sounds. EXTREMITIES: No edema. NEUROLOGIC: Normal. LABORATORY DATA: Last laboratory studies showed white count 6.2, hemoglobin 8, hematocrit 27.1, and platelets 330. Chemistries was noted for sugar was in the 100 and sodium 139, potassium 5, chloride 108, bicarb 30, BUN 53, creatinine 1.5, blood sugar 133, calcium 8, phosphorus and magnesium is normal. IMPRESSION AND PLAN: 1. Abdominal wall wound infection. Continue intravenous antibiotic, micafungin and cefepime. The patient is doing well. 2. Chronic back pain, sciatica. Continue Lyrica and Dilaudid. 3. Obstructive sleep apnea, morbid obesity, chronic obstructive pulmonary disease. Continue inhale bronchodilators. Continue bilevel positive airway pressure. 4. Anemia. The patient is seen by Oncology and Hematology. 5. Hypertension is controlled well. Continue Norvasc, lipiodol, clonidine patch, clonidine tablets p.r.n. She is stable. 6. Chronic renal failure, improving. Continue current therapy. We will follow up clinically. 7. For underlying diabetes mellitus type 2, on insulin. We will continue insulin coverage plus Levemir. Continue current therapy. Follow up clinically. We will repeat lab in the morning. Elroy Florian MD
--- NOTE | 2018-05-17 14:42 | CP.PCM.PN ---
Subjective - Date & Time of Evaluation Date of Evaluation: 05/17/18 Time of Evaluation: 14:42 - Subjective Subjective: Nephrology Consultation Note: Assessment: ARF/CKD 3 stable SBO s/p ex lap ? MESH infection left adrenal adenoma, Rt renal hyperdense cyst chronic hypercapnic respi failure Diabetic chronic Kidney Disease (E11.22) Hypertensive Chronic Kidney Disease (I12.9) Chronic Kidney Disease (N18.3) Stage 3 with 2.4 gm proteinuria (R80.9) likely due to DM/HTN/Obesity Anemia Vit D def morbid obesity, CAD s/p stent, COPD/SUMMER, rectal ca s/p colostomy hypomag Plan No acute need for renal replacement therapy at this time. HTN control on multiple meds; Monitor Input/Output, daily weights and renal function with basic metabolic panel PRBC as needed. d/w heme and okay to use KAVYA from heme perspective. on weekly aransep supplement lytes as needed continue with lasix Adrenal adenoma work up with plasma renin/aldosterone, plasma metanephrine NEGATIVE. outpt 1 mg dexa suppression test repeat renal sono in 6 months to assess her Rt renal cyst Dose meds/antibiotics for reduced GFR. Avoid fleets enema/magnesium based laxatives. Avoid nephrotoxins/NSAIDs/ iodinated contrast (unless needed emergently) Glycemic control Further work up/management as per primary team Thanks for allowing me to participate in care of your patient. Will follow patient with you. Please call if any Qs. had d/w team Dr Dae Dawn Office: [phone] Chief Complaint;AMS Reason for consult: Acute Kidney Injury, CKD 3 HPI: Pt is a 62 F with hx of diabetes Mellitus (15 years), hypertension (years), CKD 3 with baseline cr 1.2-1.3 recently admitted after complicated abdominal surgery that represents w/ abdominal pain. Was recommended to get mesh removed last admission but refusing and still refusing per surgical service. She does not know why she is in the hospital. She denies n/v. She endorses reduced po intake. ROS: a full detailed ROS is negative except as in my hpi. she feels same. no new complaints Physical Examination: General Appearance: comfortable,morbidly obese. Vitals reviewed and noted as below Head; Atraumatic, normocephalic ENT: dry mucosa EYES: Pupils are equal, round and reactive to light accommodation. Eye muscles and extraocular movement intact. Sclera is anicteric. Neck; supple no lymphadenopathy, no thyromegaly or bruit Lungs: Normal respiratory rate/effort. Breath sounds bilateral equal, diminished at bases but overall limited exam due to her obesity Heart: normal rate. s1s2 normal. No rub or gallop. Extremities: 1+ edema, non pitting lymphedema as well. No varicose veins Neurological: Patient is sleepy today follow commands Skin: Warm and dry. Normal turgor. No rash. Palpitation: Normal elasticity for age Abdomen: Abdomen is + colostomy Psych: flat affect MSK: no joint tenderness or swelling. Digits and nails normal, no deformity : kidney or bladder not palpable Labs/imaging reviewed. Past medical history, past surgical history, family history, social history, allergy reviewed and noted as below Family hx: no hx of CKD. Rest non-contributory Objective - Vital Signs/Intake and Output Vital Signs (last 24 hours): Temp Pulse Resp BP Pulse Ox 98.2 F 77 18 144/57 L 97 05/17/18 12:00 05/17/18 14:40 05/17/18 12:00 05/17/18 14:40 05/17/18 06:00 Intake and Output: 05/17/18 05/17/18 06:59 18:59 Intake Total 220 Output Total 350 Balance -130 - Medications Medications: Current Medications Acetaminophen (Tylenol 325mg Tab) 650 mg PO Q4H PRN PRN Reason: Pain, Mild (1-3) Albuterol/Ipratropium (Duoneb 3 Mg/0.5 Mg (3 Ml) Ud) 3 ml IH [id number] [facility] Last Admin: 05/17/18 13:57 Dose: 3 ml Albuterol/Ipratropium (Duoneb 3 Mg/0.5 Mg (3 Ml) Ud) 3 ml IH Q2H PRN PRN Reason: Shortness of Breath Amlodipine Besylate (Norvasc) 10 mg PO DAILY [facility] Last Admin: 05/17/18 09:59 Dose: 10 mg Apixaban (Eliquis) 2.5 mg PO BID [facility]; Protocol Last Admin: 05/17/18 10:00 Dose: 2.5 mg Arformoterol Tartrate (Brovana) 15 mcg IH [id number] [facility] Last Admin: 05/17/18 08:24 Dose: 15 mcg Armodafinil (Nuvigil 250 Mg Tab) 250 mg PO DAILY [facility] Last Admin: 05/17/18 10:00 Dose: 250 mg Aspirin (Ecotrin) 81 mg PO DAILY [facility] Last Admin: 05/17/18 09:59 Dose: 81 mg Atorvastatin Calcium (Lipitor) 20 mg PO HS [facility] Last Admin: 05/16/18 21:46 Dose: 20 mg Budesonide (Pulmicort Respules) 0.5 mg IH [id number] [facility] Last Admin: 05/17/18 08:24 Dose: 0.5 mg Clonazepam (Klonopin) 1 mg PO HS [facility]; Protocol Stop: 05/19/18 23:59 Last Admin: 05/16/18 21:48 Dose: 1 mg Clonidine HCl (Catapres-Tts3 0.3 Mg/24 Hr) 1 patch TD Q7D@1000 RJ Darbepoetin Timothy (Aranesp) 150 mcg SC QWK [facility] Last Admin: 05/14/18 12:26 Dose: 150 mcg Docusate Sodium (Colace) 100 mg PO TID [facility] Last Admin: 05/17/18 14:41 Dose: 100 mg Ergocalciferol (Drisdol 50,000 Intl Units Cap) 1 cap PO Q7D [facility] Last Admin: 05/11/18 23:12 Dose: 1 cap Ferrous Gluconate (Fergon) 324 mg PO DAILY [facility] Last Admin: 05/17/18 10:21 Dose: 324 mg Furosemide (Lasix) 20 mg PO DAILY [facility] Hydralazine HCl (Apresoline) 100 mg PO TID [facility] Last Admin: 05/17/18 14:40 Dose: 100 mg Micafungin Sodium 100 mg/ (Sodium Chloride) 100 mls @ 100 mls/hr IV DAILY [facility]; Protocol Stop: 05/20/18 22:00 Last Admin: 05/17/18 10:01 Dose: 100 mls/hr Cefepime HCl (Maxipime 1gm) 1 gm in 100 mls @ 100 mls/hr IVPB Q12 [facility]; Protocol Stop: 05/20/18 22:16 Last Admin: 05/17/18 11:30 Dose: 100 mls/hr Insulin Detemir (Levemir) 20 unit SC HS [facility] Last Admin: 05/16/18 21:49 Dose: Not Given Insulin Human Regular (Humulin R Low) 0 units SC [facility]; Protocol Last Admin: 05/17/18 11:30 Dose: 1 unit Isosorbide Mononitrate (Imdur) 60 mg PO DAILY [facility] Last Admin: 05/17/18 09:59 Dose: 60 mg Labetalol HCl (Trandate) 300 mg PO Q8 [facility] Last Admin: 05/17/18 14:40 Dose: 300 mg Metoclopramide HCl (Reglan) 5 mg PO [facility] Last Admin: 05/17/18 12:36 Dose: 5 mg Nifedipine (Procardia Xl) 60 mg PO QPM [facility] Last Admin: 05/16/18 17:48 Dose: 60 mg Nystatin (Nystop Topical Powder) 0 gm TOP TID [facility] Last Admin: 05/17/18 11:45 Dose: 1 applic Ondansetron HCl (Zofran Inj) 4 mg IVP Q4H PRN PRN Reason: Nausea/Vomiting Pantoprazole Sodium (Protonix Ec Tab) 20 mg PO ACB [facility] Last Admin: 05/17/18 08:27 Dose: 20 mg Pregabalin (Lyrica) 50 mg PO BID [facility] Last Admin: 05/17/18 10:00 Dose: 50 mg Saliva Substitute (Saliva Substitute) 0 ml PO 5XD PRN PRN Reason: DRY MOUTH Silver Sulfadiazine (Silvadene 1% 25 Gm) 0 gm TP BID [facility] Last Admin: 05/17/18 11:46 Dose: 25 gm Simethicone (Mylicon Chew Tab) 80 mg PO PCHS PRN PRN Reason: GI distress Vitamin B Complex/Vit C/Folic Acid (Nephro-Holland) 1 tab PO 0800 [facility] Last Admin: 05/17/18 08:27 Dose: 1 tab - Labs Labs: 05/17/18 06:30 05/17/18 06:30 PT 15.0 SECONDS (9.4-12.5) H 05/11/18 13:45 INR 1.30 05/11/18 13:45 APTT 20.4 Seconds (25.1-36.5) L 05/11/18 13:45
--- NOTE | 2018-05-17 16:58 | PN ---
DATE: 05/17/2018 SUBJECTIVE: The patient is a 62-year-old [place] female, who is admitted in a febrile state. The patient appears to have either a generalized anxiety disorder or an adjustment disorder with anxious features in response to her pain and illness. A review of records indicates that the general consensus is that she has improved in her level of activity. She however, appears to be sleeping much, such as at the present time. She is being maintained on albuterol, amlodipine, apixaban, Brovana, Nuvigil 150 mg q.d., aspirin, atorvastatin, Pulmicort, Klonopin 1 mg q.h.s., clonidine 1 mg t.i.d. patch, Aranesp, Colace, Drisdol, Theragran, Lasix, alprazolam, Dilaudid 2 mg every 4 hours p.r.n. for pain, Levemir, amoxapine, micafungin. A CBC and differential today show lowered RBC 3.5, hemoglobin 8.5, hematocrit 29.1. Her blood sugar today is 175, potassium elevated 5.2, BUN elevated 52 and creatinine 1.8. PHYSICAL EXAMINATION: VITAL SIGNS: Blood pressure 144/57, pulse 76, temperature 98.2, respiratory rate 18. It is noted ____ the patient return to subacute care. Eusebio Mendoza MD/ PhD
[2018-05-17] MEDS: NIFEdipine 60 mg ER Tab PO SCH (18:30)
[2018-05-17] MEDS: Insulin Detemir 100 units/ml Vial (Levemir) SC SCH ×2 (22:08→22:19)
[2018-05-18] MEDS: Albuterol-Ipratrop 3 mg / 0.5 (3 ml) UD IH SCH ×3 (08:00→20:04)
[2018-05-18] MEDS: Arformoterol 15 mcg/2 ml Inh Sol IH SCH ×2 (08:00→20:04)
[2018-05-18 08:19] LABS: ALB/GLOB RATIO 0.7 (1.1-1.8); ALBUMIN 2.5 g/dL (3.0-4.8); CALCIUM 8.1 mg/dL (8.4-10.5)
[2018-05-18] MEDS: Insulin Reg-LOW-Coverage SC SCH ×4 (08:30→22:08)
[2018-05-18] MEDS: Budesonide 0.5 mg/2 ml Inhal Susp UD IH SCH ×2 (09:00→20:04)
[2018-05-18] MEDS: Micafungin 100 MG in Sodium Chloride 0.9% 100 ML IV SCH (10:25)
[2018-05-18] MEDS: Multivitamin Vitamin B Complex (Nephro-Vite) Tab PO SCH (10:30)
[2018-05-18] MEDS: Armodafinil 250 mg Tab PO SCH (10:30)
[2018-05-18] MEDS: Pantoprazole 20 mg EC Tab PO SCH (10:31)
[2018-05-18] MEDS: Silver Sulfadiazine 1% Cream (25 gm) TP SCH ×2 (10:32→18:07)
[2018-05-18] MEDS: Nystatin 100,000 Units/gm Topical Pow(15 gm) TOP SCH ×3 (10:32→17:56)
[2018-05-18] MEDS: Cefepime 1gm in NS 100ml 1 GM/100 ML BAG IVPB SCH ×2 (11:06→22:45)
--- NOTE | 2018-05-18 16:51 | CP.PCM.PN ---
Subjective - Date & Time of Evaluation Date of Evaluation: 05/18/18 Time of Evaluation: 16:49 - Subjective Subjective: Nephrology Consultation Note: Assessment: ARF/CKD 3 stable SBO s/p ex lap ? MESH infection left adrenal adenoma, Rt renal hyperdense cyst chronic hypercapnic respi failure Diabetic chronic Kidney Disease (E11.22) Hypertensive Chronic Kidney Disease (I12.9) Chronic Kidney Disease (N18.3) Stage 3 with 2.4 gm proteinuria (R80.9) likely due to DM/HTN/Obesity Anemia Vit D def morbid obesity, CAD s/p stent, COPD/SUMMER, rectal ca s/p colostomy hypomag Plan No acute need for renal replacement therapy at this time. HTN continue current meds Monitor Input/Output, and renal function with basic metabolic panel PRBC as needed. d/w heme and okay to use KAVYA from heme perspective. on weekly aransep supplement lytes as needed continue with lasix Adrenal adenoma work up with plasma renin/aldosterone, plasma metanephrine NEGATIVE. outpt 1 mg dexa suppression test repeat renal sono in 6 months to assess her Rt renal cyst Physical Examination: General Appearance: comfortable,morbidly obese. Vitals reviewed and noted as below Head; Atraumatic, normocephalic ENT: dry mucosa EYES: Pupils are equal, round and reactive to light accommodation. Eye muscles and extraocular movement intact. Sclera is anicteric. Neck; supple no lymphadenopathy, no thyromegaly or bruit Lungs: Normal respiratory rate/effort. Breath sounds bilateral equal, diminished at bases but overall limited exam due to her obesity Heart: normal rate. s1s2 normal. No rub or gallop. Extremities: 1+ edema, No varicose veins Neurological: Patient is sleepy today follow commands Skin: Warm and dry. Normal turgor. Abdomen: Abdomen is + colostomy Psych: flat affect MSK: no joint tenderness or swelling. Objective - Vital Signs/Intake and Output Vital Signs (last 24 hours): Temp Pulse Resp BP Pulse Ox 98.3 F 71 18 165/66 H 98 05/18/18 12:00 05/18/18 13:51 05/18/18 12:00 05/18/18 13:51 05/18/18 05:38 Intake and Output: 05/18/18 05/18/18 06:59 18:59 Intake Total 1891 Output Total 1000 Balance 891 - Medications Medications: Current Medications Acetaminophen (Tylenol 325mg Tab) 650 mg PO Q4H PRN PRN Reason: Pain, Mild (1-3) Albuterol/Ipratropium (Duoneb 3 Mg/0.5 Mg (3 Ml) Ud) 3 ml IH [id number] [facility] Last Admin: 05/18/18 14:26 Dose: 3 ml Albuterol/Ipratropium (Duoneb 3 Mg/0.5 Mg (3 Ml) Ud) 3 ml IH Q2H PRN PRN Reason: Shortness of Breath Amlodipine Besylate (Norvasc) 10 mg PO DAILY [facility] Last Admin: 05/18/18 10:29 Dose: 10 mg Apixaban (Eliquis) 2.5 mg PO BID [facility]; Protocol Last Admin: 05/18/18 10:31 Dose: 2.5 mg Arformoterol Tartrate (Brovana) 15 mcg IH [id number] [facility] Last Admin: 05/18/18 08:00 Dose: 15 mcg Armodafinil (Nuvigil 250 Mg Tab) 250 mg PO DAILY [facility] Last Admin: 05/18/18 10:30 Dose: 250 mg Aspirin (Ecotrin) 81 mg PO DAILY [facility] Last Admin: 05/18/18 10:31 Dose: 81 mg Atorvastatin Calcium (Lipitor) 20 mg PO HS [facility] Last Admin: 05/17/18 21:59 Dose: 20 mg Budesonide (Pulmicort Respules) 0.5 mg IH [id number] [facility] Last Admin: 05/18/18 09:00 Dose: 0.5 mg Clonazepam (Klonopin) 1 mg PO HS [facility]; Protocol Stop: 05/19/18 23:59 Last Admin: 05/17/18 21:59 Dose: 1 mg Clonidine HCl (Catapres-Tts3 0.3 Mg/24 Hr) 1 patch TD Q7D@1000 [facility] Last Admin: 05/18/18 11:06 Dose: 1 patch Darbepoetin Timothy (Aranesp) 150 mcg SC QWK [facility] Last Admin: 05/14/18 12:26 Dose: 150 mcg Docusate Sodium (Colace) 100 mg PO TID [facility] Last Admin: 05/18/18 13:57 Dose: 100 mg Ergocalciferol (Drisdol 50,000 Intl Units Cap) 1 cap PO Q7D [facility] Last Admin: 05/11/18 23:12 Dose: 1 cap Ferrous Gluconate (Fergon) 324 mg PO DAILY [facility] Last Admin: 05/18/18 10:31 Dose: 324 mg Furosemide (Lasix) 20 mg PO DAILY [facility] Last Admin: 05/18/18 10:31 Dose: 20 mg Hydralazine HCl (Apresoline) 100 mg PO TID [facility] Last Admin: 05/18/18 13:57 Dose: 100 mg Micafungin Sodium 100 mg/ (Sodium Chloride) 100 mls @ 100 mls/hr IV DAILY [facility]; Protocol Stop: 05/20/18 22:00 Last Admin: 05/18/18 10:25 Dose: 100 mls/hr Cefepime HCl (Maxipime 1gm) 1 gm in 100 mls @ 100 mls/hr IVPB Q12 [facility]; Protocol Stop: 05/20/18 22:16 Last Admin: 05/18/18 11:06 Dose: 100 mls/hr Insulin Detemir (Levemir) 20 unit SC HS [facility] Last Admin: 05/17/18 22:19 Dose: Not Given Insulin Human Regular (Humulin R Low) 0 units SC [facility]; Protocol Last Admin: 05/18/18 13:17 Dose: Not Given Isosorbide Mononitrate (Imdur) 60 mg PO DAILY [facility] Last Admin: 05/18/18 10:28 Dose: 60 mg Labetalol HCl (Trandate) 300 mg PO Q8 [facility] Last Admin: 05/18/18 13:51 Dose: 300 mg Metoclopramide HCl (Reglan) 5 mg PO ACHS [facility] Last Admin: 05/18/18 10:28 Dose: 5 mg Nifedipine (Procardia Xl) 60 mg PO QPM [facility] Last Admin: 05/17/18 18:30 Dose: 60 mg Nystatin (Nystop Topical Powder) 0 gm TOP TID [facility] Last Admin: 05/18/18 13:57 Dose: 1 applic Ondansetron HCl (Zofran Inj) 4 mg IVP Q4H PRN PRN Reason: Nausea/Vomiting Pantoprazole Sodium (Protonix Ec Tab) 20 mg PO ACB [facility] Last Admin: 05/18/18 10:31 Dose: 20 mg Pregabalin (Lyrica) 50 mg PO BID [facility] Last Admin: 12/15/18 10:28 Dose: 50 mg Saliva Substitute (Saliva Substitute) 0 ml PO 5XD PRN PRN Reason: DRY MOUTH Silver Sulfadiazine (Silvadene 1% 25 Gm) 0 gm TP BID [facility] Last Admin: 05/18/18 10:32 Dose: 25 gm Simethicone (Mylicon Chew Tab) 80 mg PO PCHS PRN PRN Reason: GI distress Vitamin B Complex/Vit C/Folic Acid (Nephro-Holland) 1 tab PO 0800 [facility] Last Admin: 05/18/18 10:30 Dose: 1 tab - Labs Labs: 05/17/18 06:30 05/18/18 07:00 PT 15.0 SECONDS (9.4-12.5) H 05/11/18 13:45 INR 1.30 05/11/18 13:45 APTT 20.4 Seconds (25.1-36.5) L 05/11/18 13:45
[2018-05-18] MEDS ORDERED: Morphine 4 mg/ml ISec IVP STA (17:20)
[2018-05-18] MEDS: NIFEdipine 60 mg ER Tab PO SCH (17:56)
[2018-05-18] MEDS: HYDROmorphone 2 mg/ml ISec IVP PRN (18:02)
[2018-05-18] MEDS: Insulin Detemir 100 units/ml Vial (Levemir) SC SCH (22:44)
[2018-05-18] MEDS: Ergocalciferol 50,000 Intl Units Cap PO SCH (23:00)
--- NOTE | 2018-05-19 00:22 | PN ---
DATE: 05/18/2018 PULMONARY PROGRESS NOTE REFERRING PHYSICIAN: Elroy Florian MD SUBJECTIVE: The patient is lying in bed, sleepy, tired, arousable. Complains of abdominal discomfort, colostomy bag draining. No overnight events reported. Did not wear BiPAP last night. No headache, chest pain, nausea, vomiting, diarrhea, leg swelling reported. OBJECTIVE VITAL SIGNS: Temperature 98.6, pulse 77, blood pressure 155/58, respirations 20. GENERAL: No acute distress, fatigue. HEENT: Moist mucous membrane. Crowded airway. Mallampati score is 4. NECK: Short, thick. No JVD. LUNGS: Fair airflow. Few rhonchi. CARDIAC: S1, S2. ABDOMEN: Obese. LLQ dressing intact surgical site. Colostomy bag on right side. EXTREMITIES: Trace bilateral lower extremity. NEUROLOGIC: Sleepy, arousable. Follow simple commands. LABORATORY DATA: Results reviewed. Beside glucose 156. No other data since yesterday. MEDICATIONS: Reviewed. Dilaudid 2 mg IV push every 4 hours as needed for severe pain, clonidine one patch transdermal every 7 days, no other changes since yesterday. IMPRESSION AND PLAN: Status post laparotomy with small bowel obstruction and hernia repair also relocation of colostomy, hypoventilation syndrome with CO2 retention, hypoxemia requiring noninvasive ventilation, history of pulmonary embolism and deep venous thrombosis in the remote past, diabetes, chronic obstructive lung disease, hypertension, morbid obesity, recurrent abdominal pain, pulmonary hypertension, suspected mesh infection, wound culture found to have Celsa albicans, pulmonary point of view. Continue to encourage bilevel positive airway pressure while sleeping. Continue oral daytime stimulant, inhaled bronchodilator, diuretics, gastric prophylaxis, on anticoagulation. Antibiotics as per Infectious Disease. Pressure ulcer precautions. Keep head elevated 45 degrees. This patient was examined by Dr. Ayala, and discussed assessment and plan as described above. Thank you for this consult and we will follow with you. Aliyah Watson APN Pamela Ayala MD [facility] # [id number] ANT
[2018-05-19] MEDS: Albuterol-Ipratrop 3 mg / 0.5 (3 ml) UD IH SCH ×4 (01:37→20:15)
[2018-05-19 08:07] LABS: ALB/GLOB RATIO 0.6 (1.1-1.8); ALBUMIN 2.6 g/dL (3.0-4.8); CALCIUM 8.2 mg/dL (8.4-10.5)
[2018-05-19] MEDS: Insulin Reg-LOW-Coverage SC SCH ×4 (08:12→21:48)
[2018-05-19] MEDS: Multivitamin Vitamin B Complex (Nephro-Vite) Tab PO SCH (08:15)
[2018-05-19] MEDS: Pantoprazole 20 mg EC Tab PO SCH (08:15)
[2018-05-19] MEDS: Arformoterol 15 mcg/2 ml Inh Sol IH SCH ×2 (09:00→20:15)
[2018-05-19] MEDS: Budesonide 0.5 mg/2 ml Inhal Susp UD IH SCH ×2 (09:01→20:15)
[2018-05-19] MEDS: Armodafinil 250 mg Tab PO SCH (11:13)
[2018-05-19] MEDS: Cefepime 1gm in NS 100ml 1 GM/100 ML BAG IVPB SCH ×2 (11:16→22:24)
[2018-05-19] MEDS: Nystatin 100,000 Units/gm Topical Pow(15 gm) TOP SCH ×3 (11:17→17:13)
[2018-05-19] MEDS: Silver Sulfadiazine 1% Cream (25 gm) TP SCH ×2 (11:17→17:13)
[2018-05-19] MEDS: Micafungin 100 MG in Sodium Chloride 0.9% 100 ML IV SCH (12:57)
--- NOTE | 2018-05-19 14:47 | PN ---
DATE: 05/19/2018 REFERRING PHYSICIAN: Dr. Florian. SUBJECTIVE: She is lying in the bed, sleepy, arousable. Night was unremarkable. Not very compliant with noninvasive ventilation. No cough. No sputum production. No hemoptysis, poor appetite. Does have some abdominal discomfort. Colostomy working okay. Trace leg swelling. OBJECTIVE: GENERAL: No acute distress. VITAL SIGNS: Temp is 98, heart rate 81, respiratory rate is 22, blood pressure 172/64, pulse ox 93% on BiPAP . HEENT: Moist mucous membrane. Crowded airway, Mallampati score is 4. NECK: Supple. No JVD. LUNGS: Have a scattered rhonchi. HEART: S1, S2. ABDOMEN: Colostomy working well. Surgical site is covered and soaked with some secretion. EXTREMITIES: There is trace edema. NEUROLOGIC: Sleepy, arousable. Follows simple command. MEDICATIONS: She is on hydralazine 100 mg three times a day, Aranesp 150 mcg weekly, Brovana inhaled twice a day, clonidine patch every 7 days, Colace 100 mg three times a day, Dilaudid 2 mg IV every 4 hours p.r.n., vitamin D 50,000 units every 7 days, DuoNeb every 2 hours p.r.n., DuoNeb every 6 hours [id number], Ecotrin 81 mg daily, Eliquis 2.5 mg twice day, Ferrex gluconate 325 mg daily, insulin coverage, Imdur 60 mg daily, clonazepam 1 mg at bedtime, Lasix 20 mg daily, Levemir 20 units subcu at bedtime, Lipitor 20 mg at bedtime., Lyrica 50 mg twice a day, cefepime 1 g IV every 12 hours, micafungin 100 mg daily, Mylicon chewable tablet 80 mg before meals at bedtime, Nephro vitamins daily, Norvasc 10 mg daily, Nuvigil 250 mg daily, Procardia 60 mg daily, Protonix 40 mg daily, Pulmicort inhaled twice a day, Reglan 5 mg before meals and at bedtime, also on labetalol 300 mg p.o. every 8 hours, Tylenol p.r.n., Zofran p.r.n. basis. LABORATORY DATA: Reviewed and noted. Sodium 38, potassium 5.3, chloride 106, bicarbonate 27, BUN 57, creatinine 2.3, glucose 116, calcium 8.2, AST 38, ALT 20, alk phos is 148. Albumin is 2.6. Microbiology, abdominal wound has some Celsa and urine also has some Celsa. Blood culture, there is no growth. IMPRESSION AND PLAN: Status post laparotomy for small bowel obstruction, hernia repair and relocation of colostomy, hypoventilation syndrome, sleep apnea syndrome, CO2 retention and hypoxemia, history of pulmonary embolism, deep vein thrombosis, diabetes, chronic lung disease, pulmonary hypertension, suspected mesh infection, has some Celsa in the wound. Pulmonary point of view, continue encourage BiPAP use. Keep head at 45 degrees. Continue daytime stimulant, pain management, gastric prophylaxis, DVT prophylaxis. Follow up labs in the morning. Thank you and we will follow with you. Pamela Ayala MD
[2018-05-19] MEDS: NIFEdipine 60 mg ER Tab PO SCH (17:10)
[2018-05-19] MEDS: HYDROmorphone 2 mg/ml ISec IVP PRN (18:42)
--- NOTE | 2018-05-19 18:56 | CP.PCM.PN ---
Subjective - Date & Time of Evaluation Date of Evaluation: 05/18/18 Time of Evaluation: 09:40 - Subjective Subjective: Comfortable, no fevers, not in distress. Objective - Vital Signs/Intake and Output Vital Signs (last 24 hours): Temp Pulse Resp BP Pulse Ox 98.2 F 76 18 144/57 L 97 05/17/18 12:00 05/17/18 12:00 05/17/18 12:00 05/17/18 12:00 05/17/18 06:00 Intake and Output: 05/17/18 05/17/18 06:59 18:59 Intake Total 220 Output Total 350 Balance -130 - Medications Medications: Current Medications Acetaminophen (Tylenol 325mg Tab) 650 mg PO Q4H PRN PRN Reason: Pain, Mild (1-3) Albuterol/Ipratropium (Duoneb 3 Mg/0.5 Mg (3 Ml) Ud) 3 ml IH [id number] [facility] Last Admin: 05/17/18 08:24 Dose: 3 ml Albuterol/Ipratropium (Duoneb 3 Mg/0.5 Mg (3 Ml) Ud) 3 ml IH Q2H PRN PRN Reason: Shortness of Breath Amlodipine Besylate (Norvasc) 10 mg PO DAILY [facility] Last Admin: 05/17/18 09:59 Dose: 10 mg Apixaban (Eliquis) 2.5 mg PO BID [facility]; Protocol Last Admin: 05/17/18 10:00 Dose: 2.5 mg Arformoterol Tartrate (Brovana) 15 mcg IH [id number] [facility] Last Admin: 05/17/18 08:24 Dose: 15 mcg Armodafinil (Nuvigil 250 Mg Tab) 250 mg PO DAILY [facility] Last Admin: 05/17/18 10:00 Dose: 250 mg Aspirin (Ecotrin) 81 mg PO DAILY [facility] Last Admin: 05/17/18 09:59 Dose: 81 mg Atorvastatin Calcium (Lipitor) 20 mg PO HS [facility] Last Admin: 05/16/18 21:46 Dose: 20 mg Budesonide (Pulmicort Respules) 0.5 mg IH [id number] [facility] Last Admin: 05/17/18 08:24 Dose: 0.5 mg Clonazepam (Klonopin) 1 mg PO HS [facility]; Protocol Stop: 12/16/18 23:59 Last Admin: 05/16/18 21:48 Dose: 1 mg Clonidine HCl (Catapres-Tts3 0.3 Mg/24 Hr) 1 patch TD Q7D@1000 JR Darbepoetin Timothy (Aranesp) 150 mcg SC QWK [facility] Last Admin: 05/14/18 12:26 Dose: 150 mcg Docusate Sodium (Colace) 100 mg PO TID [facility] Last Admin: 05/17/18 10:00 Dose: 100 mg Ergocalciferol (Drisdol 50,000 Intl Units Cap) 1 cap PO Q7D [facility] Last Admin: 05/11/18 23:12 Dose: 1 cap Ferrous Gluconate (Fergon) 324 mg PO DAILY [facility] Last Admin: 05/17/18 10:21 Dose: 324 mg Furosemide (Lasix) 20 mg PO DAILY [facility] Hydralazine HCl (Apresoline) 100 mg PO TID [facility] Last Admin: 05/17/18 09:59 Dose: 100 mg Hydromorphone HCl (Dilaudid) 2 mg PO Q4 PRN PRN Reason: Pain Last Admin: 05/17/18 03:51 Dose: 2 mg Micafungin Sodium 100 mg/ (Sodium Chloride) 100 mls @ 100 mls/hr IV DAILY [facility]; Protocol Stop: 05/20/18 22:00 Last Admin: 05/17/18 10:01 Dose: 100 mls/hr Cefepime HCl (Maxipime 1gm) 1 gm in 100 mls @ 100 mls/hr IVPB Q12 [facility]; Protocol Stop: 05/20/18 22:16 Last Admin: 05/17/18 11:30 Dose: 100 mls/hr Insulin Detemir (Levemir) 20 unit SC HS [facility] Last Admin: 05/16/18 21:49 Dose: Not Given Insulin Human Regular (Humulin R Low) 0 units SC ACHS [facility]; Protocol Last Admin: 05/17/18 11:30 Dose: 1 unit Isosorbide Mononitrate (Imdur) 60 mg PO DAILY [facility] Last Admin: 05/17/18 09:59 Dose: 60 mg Labetalol HCl (Trandate) 300 mg PO Q8 [facility] Last Admin: 05/17/18 06:22 Dose: 300 mg Metoclopramide HCl (Reglan) 5 mg PO ACHS [facility] Last Admin: 05/17/18 08:27 Dose: 5 mg Metronidazole (Flagyl) 500 mg PO Q8 [facility]; Protocol Stop: 05/21/18 14:01 Last Admin: 05/17/18 06:22 Dose: 500 mg Nifedipine (Procardia Xl) 60 mg PO QPM [facility] Last Admin: 05/16/18 17:48 Dose: 60 mg Nystatin (Nystop Topical Powder) 0 gm TOP TID [facility] Last Admin: 05/17/18 11:45 Dose: 1 applic Ondansetron HCl (Zofran Inj) 4 mg IVP Q4H PRN PRN Reason: Nausea/Vomiting Pantoprazole Sodium (Protonix Ec Tab) 20 mg PO ACB [facility] Last Admin: 05/17/18 08:27 Dose: 20 mg Pregabalin (Lyrica) 50 mg PO BID [facility] Last Admin: 05/17/18 10:00 Dose: 50 mg Saliva Substitute (Saliva Substitute) 0 ml PO 5XD PRN PRN Reason: DRY MOUTH Silver Sulfadiazine (Silvadene 1% 25 Gm) 0 gm TP BID [facility] Last Admin: 05/17/18 11:46 Dose: 25 gm Simethicone (Mylicon Chew Tab) 80 mg PO PCHS PRN PRN Reason: GI distress Vitamin B Complex/Vit C/Folic Acid (Nephro-Holland) 1 tab PO 0800 [facility] Last Admin: 05/17/18 08:27 Dose: 1 tab - Labs Labs: 05/17/18 06:30 05/17/18 06:30 PT 15.0 SECONDS (9.4-12.5) H 05/11/18 13:45 INR 1.30 05/11/18 13:45 APTT 20.4 Seconds (25.1-36.5) L 05/11/18 13:45 - Constitutional Appears: Chronically Ill - Head Exam Head Exam: NORMAL INSPECTION - Respiratory Exam Respiratory Exam: Decreased Breath Sounds - Cardiovascular Exam Cardiovascular Exam: +S1, +S2 - GI/Abdominal Exam GI & Abdominal Exam: Soft. absent: Tenderness Additional comments: dressings in place Assessment and Plan - Assessment and Plan (Free Text) Plan: Assessment abdominal wall cellulitis with probable infected abdominal mesh; most recent cultures from 05/03/2018 showed Pseudomonas and C. famata S/P small bowel obstruction in this patient with ventral wall hernia, S/P ventral incarcerated hernia repair, adhesiolysis and revision of colostomy S/P acute coronary syndrome with NSTEMI COPD history of VRE UTI history of severe sepsis secondary to left medial thigh abscess, growing Proteus, S/P incision and drainage DM HTN CAD Unresectable rectal cancer S/P chemotherapy and radiation therapy S/P colostomy S/P Port-a-cath placement morbid obesity with BMI 50 obstructive sleep apnea history of pulmonary embolism S/P IVC filter placement Plan continue Cefepime and Flagyl and Mycamine as well as intermittent Vancomycin (day 7) pending repeat abdominal wound cx; follow up further plans of surgery, but apparently the patient has been refusing to have the mesh removed as per other doctors will continue to follow clinically
--- NOTE | 2018-05-19 19:25 | PN ---
DATE: 05/17/2018 SUBJECTIVE: The patient seems comfortable more or less. Slept very well. She is drinking Ensure, felt little bit better. No pain in the wound, but she has back pain. PHYSICAL EXAMINATION: On the date 05/17/2018; VITAL SIGNS: Temperature 98, heart rate 80, blood pressure 137/57, respirations 20. HEAD AND NECK: Normal. No JVD. No thyromegaly. CHEST: Clear bilateral. CARDIAC: First sound and second sound normal. ABDOMEN: Soft, obese, but there is midline incisions which are dry and right colostomy, and belly is morbid obese EXTREMITIES: No edema. NEUROLOGIC: Normal. LABORATORY DATA: On 05/17/2018; her white court 6.9, hemoglobin 8.5, hematocrit 29.1, and platelets 340. Chemistries; sodium 138, potassium 5.3, chloride 106, bicarb 27, BUN 55, and creatinine 2. The patient has blood sugar 128, calcium 8.1, and magnesium 1.6. Liver function test is normal except slight elevation in alkaline phosphatase. IMPRESSION AND PLAN: 1. Acute abdominal wound infection status post hernia repair and misplacement. The patient is clinically stable. Continue current intravenous antibiotic as per intravenous consult of . The patient is doing better now, getting IV antibiotics. 2. Chronic anxiety, agitation, insomnia; seems better now with Remeron, Lyrica and the Klonopin and , though she seems better with that. 3. History of hypercoagulable state, deep venous thrombosis, and pulmonary emboli. Continue Eliquis. 4. Hypertension. Continue hydralazine, clonidine patch, pills, Norvasc, and Procardia. The patient has difficult blood pressure to control, but seems doing well. 5. Obstructive sleep apnea. Continue Nuvigil, currently she is getting 215 mg which she seems tolerated well. She will be given in the morning. Continue current medications and BiPAP machine. Follow up with pulmonary. 6 Current medication; the patient is getting including insulin-dependent diabetes, continue insulin coverage, Levemir plus insulin coverage. 7 Other medical problem; hypercholesterolemia and chronic obstructive pulmonary disease; continue DuoNeb and Lipitor and also continue micafungin and cefepime. The patient otherwise stable. We will followup clinically. Elroy Florian MD [facility] # [id number]
[2018-05-19] MEDS: Insulin Detemir 100 units/ml Vial (Levemir) SC SCH (22:22)
[2018-05-20] MEDS: Albuterol-Ipratrop 3 mg / 0.5 (3 ml) UD IH SCH ×4 (01:43→20:33)
[2018-05-20] MEDS: Pantoprazole 20 mg EC Tab PO SCH (07:33)
[2018-05-20] MEDS: Multivitamin Vitamin B Complex (Nephro-Vite) Tab PO SCH (07:33)
--- NOTE | 2018-05-20 07:36 | CP.PCM.PN ---
Subjective - Date & Time of Evaluation Date of Evaluation: 05/20/18 Time of Evaluation: 06:40 - Subjective Subjective: Lying in bed, awake, no distress, moaning, denies pain Reason for consultation and follow up: Cardiac evaluation of history of conges tive heart failure, transferred from [facility] due to lethargy Seen and examined by me and Dr. Guerrero Objective - Vital Signs/Intake and Output Vital Signs (last 24 hours): Temp Pulse Resp BP Pulse Ox 98.5 F 89 19 164/61 H 96 05/20/18 06:00 05/20/18 06:06 05/20/18 06:00 05/20/18 06:06 05/20/18 06:00 Intake and Output: 05/20/18 05/20/18 06:59 18:59 Intake Total 120 Output Total 300 Balance -180 - Medications Medications: Current Medications Acetaminophen (Tylenol 325mg Tab) 650 mg PO Q4H PRN PRN Reason: Pain, Mild (1-3) Albuterol/Ipratropium (Duoneb 3 Mg/0.5 Mg (3 Ml) Ud) 3 ml IH [id number] [facility] Last Admin: 05/20/18 01:43 Dose: 3 ml Albuterol/Ipratropium (Duoneb 3 Mg/0.5 Mg (3 Ml) Ud) 3 ml IH Q2H PRN PRN Reason: Shortness of Breath Amlodipine Besylate (Norvasc) 10 mg PO DAILY [facility] Last Admin: 05/19/18 11:13 Dose: 10 mg Apixaban (Eliquis) 2.5 mg PO BID [facility]; Protocol Last Admin: 05/19/18 17:10 Dose: 2.5 mg Arformoterol Tartrate (Brovana) 15 mcg IH [id number] [facility] Last Admin: 05/19/18 20:15 Dose: 15 mcg Armodafinil (Nuvigil 250 Mg Tab) 250 mg PO DAILY [facility] Last Admin: 05/19/18 11:13 Dose: 250 mg Aspirin (Ecotrin) 81 mg PO DAILY [facility] Last Admin: 05/19/18 11:15 Dose: 81 mg Atorvastatin Calcium (Lipitor) 20 mg PO HS [facility] Last Admin: 05/19/18 23:30 Dose: Not Given Budesonide (Pulmicort Respules) 0.5 mg IH [id number] [facility] Last Admin: 05/19/18 20:15 Dose: 0.5 mg Clonidine HCl (Catapres-Tts3 0.3 Mg/24 Hr) 1 patch TD Q7D@1000 JR Last Admin: 05/18/18 11:06 Dose: 1 patch Darbepoetin Timothy (Aranesp) 150 mcg SC QWK [facility] Last Admin: 05/14/18 12:26 Dose: 150 mcg Docusate Sodium (Colace) 100 mg PO TID [facility] Last Admin: 05/19/18 17:10 Dose: 100 mg Ergocalciferol (Drisdol 50,000 Intl Units Cap) 1 cap PO Q7D [facility] Last Admin: 05/18/18 23:00 Dose: Not Given Ferrous Gluconate (Fergon) 324 mg PO DAILY [facility] Last Admin: 05/19/18 11:13 Dose: 324 mg Hydralazine HCl (Apresoline) 100 mg PO TID [facility] Last Admin: 05/19/18 17:16 Dose: 100 mg Hydromorphone HCl (Dilaudid) 2 mg IVP Q4H PRN PRN Reason: Pain, severe (8-10) Last Admin: 05/19/18 18:42 Dose: 2 mg Micafungin Sodium 100 mg/ (Sodium Chloride) 100 mls @ 100 mls/hr IV DAILY [facility]; Protocol Stop: 05/20/18 22:00 Last Admin: 05/19/18 12:57 Dose: 100 mls/hr Cefepime HCl (Maxipime 1gm) 1 gm in 100 mls @ 100 mls/hr IVPB Q12 [facility]; Protocol Stop: 05/20/18 22:16 Last Admin: 05/19/18 22:24 Dose: 100 mls/hr Insulin Detemir (Levemir) 20 unit SC HS [facility] Last Admin: 05/19/18 22:22 Dose: 20 units Insulin Human Regular (Humulin R Low) 0 units SC ACHS [facility]; Protocol Last Admin: 05/19/18 21:48 Dose: Not Given Isosorbide Mononitrate (Imdur) 60 mg PO DAILY [facility] Last Admin: 05/19/18 11:13 Dose: 60 mg Labetalol HCl (Trandate) 300 mg PO Q8 [facility] Last Admin: 05/20/18 06:06 Dose: 300 mg Metoclopramide HCl (Reglan) 5 mg PO ACHS [facility] Last Admin: 05/19/18 23:30 Dose: Not Given Nifedipine (Procardia Xl) 60 mg PO QPM [facility] Last Admin: 05/19/18 17:10 Dose: 60 mg Nystatin (Nystop Topical Powder) 0 gm TOP TID [facility] Last Admin: 05/19/18 17:13 Dose: 1 applic Ondansetron HCl (Zofran Inj) 4 mg IVP Q4H PRN PRN Reason: Nausea/Vomiting Pantoprazole Sodium (Protonix Ec Tab) 20 mg PO ACB [facility] Last Admin: 05/19/18 08:15 Dose: 20 mg Pregabalin (Lyrica) 50 mg PO BID [facility] Last Admin: 05/19/18 17:10 Dose: 50 mg Saliva Substitute (Saliva Substitute) 0 ml PO 5XD PRN PRN Reason: DRY MOUTH Silver Sulfadiazine (Silvadene 1% 25 Gm) 0 gm TP BID [facility] Last Admin: 05/19/18 17:13 Dose: 25 gm Simethicone (Mylicon Chew Tab) 80 mg PO PCHS PRN PRN Reason: GI distress Vitamin B Complex/Vit C/Folic Acid (Nephro-Holland) 1 tab PO 0800 [facility] Last Admin: 05/19/18 08:15 Dose: 1 tab - Labs Labs: 05/17/18 06:30 05/19/18 06:30 PT 15.0 SECONDS (9.4-12.5) H 05/11/18 13:45 INR 1.30 05/11/18 13:45 APTT 20.4 Seconds (25.1-36.5) L 05/11/18 13:45 - Constitutional Appears: Non-toxic, No Acute Distress - Head Exam Head Exam: NORMAL INSPECTION, NORMOCEPHALIC - Eye Exam Eye Exam: Normal appearance Pupil Exam: NORMAL ACCOMODATION - ENT Exam ENT Exam: Mucous Membranes Dry - Respiratory Exam Respiratory Exam: Decreased Breath Sounds, NORMAL BREATHING PATTERN - Cardiovascular Exam Cardiovascular Exam: REGULAR RHYTHM, +S1, +S2 Additional comments: Telemetry NSR 70's - GI/Abdominal Exam GI & Abdominal Exam: Soft, Normal Bowel Sounds Additional comments: colostomy - Extremities Exam Additional comments: 2+edema - Neurological Exam Neurological Exam: Alert, Awake - Psychiatric Exam Psychiatric exam: Anxious - Skin Skin Exam: Dry, Normal Color, Warm Assessment and Plan - Assessment and Plan (Free Text) Assessment: A 62 year old morbidly obese female who got transferred to [facility] ER from [facility] due to altered mental status. Patient is known to service from previous multiple admissions. History of coronary artery disease with stent of circumflex,hypertension,hyperlipidemia,diabetes,sleep apnea,COPD, congestive heart failure, DVT/PE. History of bowel resection in the past with colostomy. She was admitted to [facility] due to small bowel obstruction and on 04/16/18 she had explor-lap and lysis of adhesions and ventral hernia repair with revision of colostomy (Dr. Mckeon).Postoperatively, patient had infection involving th mesh placed for the hernia repair and it was recommended that she undergo an additional procedure to have the mesh removed however patient refused surgical procedure. She was stablized and transferred to [facility]. Chest X ray showed severe cardiomegaly,moderate to severe pulmonary congestion.Not in respiratory distress, On nasal cannula 4l/min. Troponin 0.14/.15, denies chest pain, EKG- normal sinus rhythm, elevated due to renal insuffiency. Will treat medically. Surgical follow up for abdominal wound. Symptoms clinically improved.More awake and responsive. Plan: No distress, Denies chest pain,denies pain, moaning Heart rate controlled Blood pressure controlled Cardiac status stable Repeat Chest X ray from last Sunday showed improved vascular congestion No further cardiac work up at this point On Norvasc 10 mg daily, Eliquis 2.5 mg BID, ASA 81 mg daily, Lipitor 20 mg daily,Clonidine patch weekly,Lasix 40 mg daily, Labetolol 300 mg every 8 hours, Nifedipine 60 mg daily, Imdur 60 mg daily Continue current treatment Continue current medications Controlled glucose Discharge planning, awaiting [facility] placement Will follow up Plan and treatment discussed with Dr. Guerrero
[2018-05-20] MEDS: Arformoterol 15 mcg/2 ml Inh Sol IH SCH ×2 (07:59→20:32)
[2018-05-20] MEDS: Budesonide 0.5 mg/2 ml Inhal Susp UD IH SCH ×2 (08:00→20:33)
--- NOTE | 2018-05-20 08:16 | PN ---
DATE: 05/17/2018 LOCATION: The patient is in room 272, bed 2. Detailed note has been already written by Tiffanie Osborne APN and this is additional note. The patient is lying flat in bed without any chest pain, shortness of breath, or palpitations. Clinically, the patient's CHF is improving and the patient is more alert as compared to on admission. The patient will have repeat chest x-ray, follow up to see improvement of CHF today. In the meantime, we will continue present therapy and we will review the x-ray, which is being done today and we will follow closely with you. Pamela Hernandez MD
[2018-05-20] MEDS: Insulin Reg-LOW-Coverage SC SCH ×2 (09:04→18:18)
--- NOTE | 2018-05-20 09:14 | PN ---
DATE: 05/18/2018 SUBJECTIVE: The patient is complaining of pain in her back and her legs, pain medications from the medication list. We will resume it. She has no nausea. She is eating better than before, afebrile, no wound pain and she is okay. PHYSICAL EXAMINATION: VITAL SIGNS: Temperature 97.8, heart rate 83, blood pressure 145/61 and respirations 17. LABORATORY DATA: Her chemistry shows sodium 138, potassium 5.3, chloride 106, bicarb 26, BUN 22, creatinine 2, glucose 128, magnesium 1.6. IMPRESSION AND PLAN: 1. Abdominal wound infection, status post hernia repair, continue micafungin and , doing better. 2. Acute renal failure, . She does have a history of chronic renal insufficiency, probably diuretic related. The patient is not drinking as much as before and we should hold decrease her dose. We will talk with the auto painter helper. 3. Insulin-dependent diabetes, continue Levemir plus insulin coverage, blood sugar running okay in the , stable. 4. Right-sided heart failure, hypertension, obstructive sleep apnea, morbid obesity, hypercholesterolemia, hypertension difficult to control. Plan is to continue current blood pressure medicine, continue BiPAP, nebulizers and we will follow up clinically. The patient currently on Eliquis, Protonix, continue therapy and discussed with the patient about further planning including a good rehab program to help her sit and walk as before. The patient is and she needs more physical therapy. Continue current treatment for now. We will follow up clinically. Elroy Florian MD
[2018-05-20] MEDS: Nystatin 100,000 Units/gm Topical Pow(15 gm) TOP SCH ×2 (10:00→14:41)
[2018-05-20] MEDS: HYDROmorphone 2 mg/ml ISec IVP PRN ×3 (10:19→22:51)
--- NOTE | 2018-05-20 11:53 | CP.PCM.APN ---
Subjective - Date & Time of Evaluation Date of Evaluation: 05/20/18 Time of Evaluation: 09:00 - Subjective Subjective: pt seen in bed, yelling for glucerna with Rn at bedside ROS otherwise negative Review of Systems - Review of Systems All systems: reviewed and no additional remarkable complaints except Objective - Vital Signs/Intake and Output Vital Signs (last 24 hours): Temp Pulse Resp BP Pulse Ox 98.5 F 89 19 164/61 H 96 05/20/18 06:00 05/20/18 06:06 05/20/18 06:00 05/20/18 06:06 05/20/18 06:00 Intake and Output: 05/20/18 05/20/18 06:59 18:59 Intake Total 120 Output Total 300 Balance -180 - Medications Medications: Current Medications Acetaminophen (Tylenol 325mg Tab) 650 mg PO Q4H PRN PRN Reason: Pain, Mild (1-3) Albuterol/Ipratropium (Duoneb 3 Mg/0.5 Mg (3 Ml) Ud) 3 ml IH [id number] [facility] Last Admin: 05/20/18 07:59 Dose: Not Given Albuterol/Ipratropium (Duoneb 3 Mg/0.5 Mg (3 Ml) Ud) 3 ml IH Q2H PRN PRN Reason: Shortness of Breath Amlodipine Besylate (Norvasc) 10 mg PO DAILY [facility] Last Admin: 05/19/18 11:13 Dose: 10 mg Apixaban (Eliquis) 2.5 mg PO BID [facility]; Protocol Last Admin: 05/19/18 17:10 Dose: 2.5 mg Arformoterol Tartrate (Brovana) 15 mcg IH [id number] [facility] Last Admin: 05/20/18 07:59 Dose: Not Given Armodafinil (Nuvigil 250 Mg Tab) 250 mg PO DAILY [facility] Last Admin: 05/19/18 11:13 Dose: 250 mg Aspirin (Ecotrin) 81 mg PO DAILY [facility] Last Admin: 05/19/18 11:15 Dose: 81 mg Atorvastatin Calcium (Lipitor) 20 mg PO HS [facility] Last Admin: 05/19/18 23:30 Dose: Not Given Budesonide (Pulmicort Respules) 0.5 mg IH [id number] [facility] Last Admin: 05/20/18 08:00 Dose: Not Given Clonidine HCl (Catapres-Tts3 0.3 Mg/24 Hr) 1 patch TD Q7D@1000 [facility] Last Admin: 05/18/18 11:06 Dose: 1 patch Darbepoetin Timothy (Aranesp) 150 mcg SC QWK [facility] Last Admin: 05/14/18 12:26 Dose: 150 mcg Docusate Sodium (Colace) 100 mg PO TID [facility] Last Admin: 05/19/18 17:10 Dose: 100 mg Ergocalciferol (Drisdol 50,000 Intl Units Cap) 1 cap PO Q7D [facility] Last Admin: 05/18/18 23:00 Dose: Not Given Ferrous Gluconate (Fergon) 324 mg PO DAILY [facility] Last Admin: 05/19/18 11:13 Dose: 324 mg Hydralazine HCl (Apresoline) 100 mg PO TID [facility] Last Admin: 05/19/18 17:16 Dose: 100 mg Hydromorphone HCl (Dilaudid) 2 mg IVP Q4H PRN PRN Reason: Pain, severe (8-10) Last Admin: 05/20/18 10:19 Dose: 2 mg Micafungin Sodium 100 mg/ (Sodium Chloride) 100 mls @ 100 mls/hr IV DAILY [facility]; Protocol Stop: 05/20/18 22:00 Last Admin: 05/19/18 12:57 Dose: 100 mls/hr Cefepime HCl (Maxipime 1gm) 1 gm in 100 mls @ 100 mls/hr IVPB Q12 [facility]; Protocol Stop: 05/20/18 22:16 Last Admin: 05/19/18 22:24 Dose: 100 mls/hr Insulin Detemir (Levemir) 20 unit SC HS [facility] Last Admin: 05/19/18 22:22 Dose: 20 units Insulin Human Regular (Humulin R Low) 0 units SC [facility]; Protocol Last Admin: 05/20/18 09:04 Dose: Not Given Isosorbide Mononitrate (Imdur) 60 mg PO DAILY [facility] Last Admin: 05/19/18 11:13 Dose: 60 mg Labetalol HCl (Trandate) 300 mg PO Q8 [facility] Last Admin: 05/20/18 06:06 Dose: 300 mg Metoclopramide HCl (Reglan) 5 mg PO [facility] Last Admin: 05/20/18 07:33 Dose: 5 mg Nifedipine (Procardia Xl) 60 mg PO QPM [facility] Last Admin: 05/19/18 17:10 Dose: 60 mg Nystatin (Nystop Topical Powder) 0 gm TOP TID [facility] Last Admin: 05/19/18 17:13 Dose: 1 applic Ondansetron HCl (Zofran Inj) 4 mg IVP Q4H PRN PRN Reason: Nausea/Vomiting Pantoprazole Sodium (Protonix Ec Tab) 20 mg PO ACB [facility] Last Admin: 05/20/18 07:33 Dose: 20 mg Pregabalin (Lyrica) 50 mg PO BID [facility] Last Admin: 05/19/18 17:10 Dose: 50 mg Saliva Substitute (Saliva Substitute) 0 ml PO 5XD PRN PRN Reason: DRY MOUTH Silver Sulfadiazine (Silvadene 1% 25 Gm) 0 gm TP BID [facility] Last Admin: 05/19/18 17:13 Dose: 25 gm Simethicone (Mylicon Chew Tab) 80 mg PO PCHS PRN PRN Reason: GI distress Vitamin B Complex/Vit C/Folic Acid (Nephro-Holland) 1 tab PO 0800 [facility] Last Admin: 05/20/18 07:33 Dose: 1 tab - Labs Labs: 05/17/18 06:30 05/19/18 06:30 PT 15.0 SECONDS (9.4-12.5) H 05/11/18 13:45 INR 1.30 05/11/18 13:45 APTT 20.4 Seconds (25.1-36.5) L 05/11/18 13:45 - Constitutional Appears: Non-toxic, No Acute Distress - Eye Exam Eye Exam: Normal appearance Pupil Exam: NORMAL ACCOMODATION - Respiratory Exam Respiratory Exam: Decreased Breath Sounds, NORMAL BREATHING PATTERN - Cardiovascular Exam Cardiovascular Exam: +S1, +S2 - GI/Abdominal Exam GI & Abdominal Exam: Normal Bowel Sounds Additional comments: obese, multiple dsgs - Extremities Exam Extremities Exam: Normal Capillary Refill - Psychiatric Exam Psychiatric exam: Agitated - Skin Skin Exam: Normal Color Additional comments: colostomy bag in place Assessment and Plan - Assessment and Plan (Free Text) Plan: COPD (chronic obstructive pulmonary disease) (Acute) Congestive heart failure (Acute) Urinary tract infection (Acute) Abdominal pain (Acute) Abscess (Acute) Acute hypercapnic respiratory failure due to obstructive sleep apnea (Acute) Acute kidney injury (Acute) Acute pulmonary embolus (Acute) [id number] kidney injury (Acute) Altered mental status (Acute) Anemia (Acute) Anemia of chronic disease (Acute) Back pain (Acute) Chronic kidney disease-mineral and bone disorder (Acute) Dehydration (Acute) Diastolic CHF (Acute) Hypercapnic respiratory failure, chronic (Acute) Hyperglycemia (Acute) Hypertension (Acute) Hypertensive chronic kidney disease (Acute) Intractable abdominal pain (Acute) Intractable vomiting (Acute) Leukocytosis (Acute) Nephrotic range proteinuria (Acute) Partial small bowel obstruction (Acute) Pneumonia (Acute) Proteinuria (Acute) Pulmonary edema (Acute) Rectal carcinoma (Acute) Renal failure (Acute) Renal failure (ARF), acute on chronic (Acute) Renal failure (ARF), acute on chronic (Acute) Renal insufficiency (Acute) Respiratory compromise (Acute) Respiratory distress (Acute) Sepsis (Acute) Tachycardia (Acute) Plan: A/P 62 yr old female with pmh sig for htn, hld, unresectable colon ca sbo s/p abd surgery 04/14/18 with probable infection involving the mesh placed during the surgery now brought to the [facility] from [facility] for lethargy and fever now being evaluated by ID for abd wall cellulitis with recent cultures may 03 showing pseudomons and c. famata, with additonal abdominal wound and UC showing yeast species in both Discuss with ID, plan to continue Iv antibiotics , ID recommends mesh removal for infection Per discussion with PMD and surgical team - pt improving and no surgical intervention at this time , will continue to monitor clinical status Per ID , repeat abd wall culture showing megan albicans - continue IV antifungal kyperkalemia treated, labs ordered for am Per discussion with PMd he wants neuro to assess pt for upper extremity weakness- will consult Ab as requested will order oder tsh per PMD will follow up with referral to [facility] per notes - Per PMD pt may go to [facility] when bed available per discussion with pmd on iv antifu ngal/antibiotics BPCI/TIC - BPCIA/TIC Educated pt/family on BPCIA/CIR/Med to Bed Programs: Yes Flyers given, including [facility] Beneficiary letter: Yes Pt/family verbalized understanding & agreed to program: Yes
--- NOTE | 2018-05-20 12:08 | PN ---
DATE: 05/20/2018 PULMONARY PROGRESS NOTE REFERRING PHYSICIAN: Elroy Florian MD SUBJECTIVE: The patient is lying in bed, no acute distress. No overnight events reported. No headache, rhinitis, cough, shortness of breath, chest pain, nausea, vomiting, or diarrhea reported. The patient reports some abdominal pain to surgical site. PHYSICAL EXAMINATION: GENERAL: No acute distress. VITAL SIGNS: Blood pressure 164/61, pulse 83, temperature 98.5 and oxygen saturation 96%. HEENT: Moist mucous membranes. Crowded airway. Mallampati score of 4. NECK: Supple. No JVD. LUNGS: Scattered rhonchi few bilaterally. CARDIOVASCULAR: S1 and S2 audible. ABDOMEN: Colostomy with liquid stool. Surgical sites two outside of the abdomen with dressing in place. EXTREMITIES: Trace bilateral lower extremity edema. NEUROLOGIC: Awake, alert, verbal and follows simple commands. LABORATORY DATA: Reviewed. POC glucose 94. MEDICATIONS: Reviewed. Tylenol 650 mg every 4 hours p.r.n. for mild pain, DuoNeb 3 mL inhalation every 2 hours p.r.n., DuoNeb 3 mL inhalation every 6 hours, Norvasc 10 mg p.o. daily, Eliquis 2.5 mg p.o. twice a day, Brovana 15 mcg every 12 hours, Nuvigil 250 mg p.o. daily, aspirin 81 mg p.o. daily, Lipitor 20 mg at bedtime, Pulmicort 0.5 mg inhalation every 12 hours, cefepime 1 g every 12 hours, clonidine patch 0.3 mg every 7 days, Aranesp 150 mcg weekly, Colace 100 mg three times a day, ergocalciferol 50,000 units every 7 days, ferrous gluconate 324 mg p.o. daily, hydralazine 100 mg three times a day, Dilaudid 2 mg intravenous push every 4 hours p.r.n. for severe pain, Levemir 20 units at bedtime, Humulin R sliding scale, isosorbide mononitrate 60 mg p.o. daily, labetalol 300 mg every 8 hours, Reglan 5 mg p.o. a.c. and at bedtime, micafungin 100 mg daily, Procardia XL 60 mg in the evening, nystatin powder topically three times a day to affected area, Zofran 4 mg intravenous push every 4 hours p.r.n., Protonix 20 mg, Lyrica 50 mg p.o. twice a day, saliva substitute five times a day as necessary, Silvadene topically twice a day to affected area, simethicone 80 mg as necessary and Nephro-Holland one tablet daily. IMPRESSION AND PLAN: Status post laparotomy for small-bowel obstruction, hernia repair and relocation of colostomy, hypoventilation syndrome, sleep apnea syndrome, carbon dioxide retention and hypoxemia, history of pulmonary embolism and deep venous thrombosis, diabetes, chronic lung disease, pulmonary hypertension, mesh infection, has Celsa in the wound. From a pulmonary point of view, continue to encourage bilevel positive airway pressure use. Keep head of bed elevated 45 degrees. Sleep apnea precaution. Deep vein thrombosis prophylaxis and gastric prophylaxis. Continue daytime stimulant. Pain management. We will order labs in the morning. This patient was seen and examined with Dr. Ayala. Discussed assessment and plan as described above. Thank you for this consult and we will follow with you. Breezy Schafer APN Pamela Ayala MD [id number]
--- NOTE | 2018-05-20 13:31 | CP.PCM.PN ---
Subjective - Date & Time of Evaluation Date of Evaluation: 05/20/18 Time of Evaluation: 10:55 - Subjective Subjective: Not in distress, no fevers. Objective - Vital Signs/Intake and Output Vital Signs (last 24 hours): Temp Pulse Resp BP Pulse Ox 98.8 F 78 18 147/54 L 97 05/19/18 18:00 05/19/18 18:00 05/19/18 18:00 05/19/18 18:00 05/19/18 18:00 Intake and Output: 05/19/18 05/19/18 06:59 18:59 Intake Total 740 Output Total 420 Balance 320 - Medications Medications: Current Medications Acetaminophen (Tylenol 325mg Tab) 650 mg PO Q4H PRN PRN Reason: Pain, Mild (1-3) Albuterol/Ipratropium (Duoneb 3 Mg/0.5 Mg (3 Ml) Ud) 3 ml IH [id number] [facility] Last Admin: 05/19/18 13:49 Dose: 3 ml Albuterol/Ipratropium (Duoneb 3 Mg/0.5 Mg (3 Ml) Ud) 3 ml IH Q2H PRN PRN Reason: Shortness of Breath Amlodipine Besylate (Norvasc) 10 mg PO DAILY [facility] Last Admin: 05/19/18 11:13 Dose: 10 mg Apixaban (Eliquis) 2.5 mg PO BID [facility]; Protocol Last Admin: 05/19/18 17:10 Dose: 2.5 mg Arformoterol Tartrate (Brovana) 15 mcg IH [id number] [facility] Last Admin: 05/19/18 09:00 Dose: Not Given Armodafinil (Nuvigil 250 Mg Tab) 250 mg PO DAILY [facility] Last Admin: 05/19/18 11:13 Dose: 250 mg Aspirin (Ecotrin) 81 mg PO DAILY [facility] Last Admin: 05/19/18 11:15 Dose: 81 mg Atorvastatin Calcium (Lipitor) 20 mg PO HS [facility] Last Admin: 05/18/18 23:00 Dose: Not Given Budesonide (Pulmicort Respules) 0.5 mg IH [id number] [facility] Last Admin: 05/19/18 09:01 Dose: Not Given Clonazepam (Klonopin) 1 mg PO HS [facility]; Protocol Stop: 05/19/18 23:59 Last Admin: 05/18/18 23:00 Dose: Not Given Clonidine HCl (Catapres-Tts3 0.3 Mg/24 Hr) 1 patch TD Q7D@1000 [facility] Last Admin: 05/18/18 11:06 Dose: 1 patch Darbepoetin Timothy (Aranesp) 150 mcg SC QWK [facility] Last Admin: 05/14/18 12:26 Dose: 150 mcg Docusate Sodium (Colace) 100 mg PO TID [facility] Last Admin: 05/19/18 17:10 Dose: 100 mg Ergocalciferol (Drisdol 50,000 Intl Units Cap) 1 cap PO Q7D [facility] Last Admin: 05/18/18 23:00 Dose: Not Given Ferrous Gluconate (Fergon) 324 mg PO DAILY [facility] Last Admin: 05/19/18 11:13 Dose: 324 mg Hydralazine HCl (Apresoline) 100 mg PO TID [facility] Last Admin: 05/19/18 17:16 Dose: 100 mg Hydromorphone HCl (Dilaudid) 2 mg IVP Q4H PRN PRN Reason: Pain, severe (8-10) Last Admin: 05/19/18 18:42 Dose: 2 mg Micafungin Sodium 100 mg/ (Sodium Chloride) 100 mls @ 100 mls/hr IV DAILY [facility]; Protocol Stop: 05/20/18 22:00 Last Admin: 05/19/18 12:57 Dose: 100 mls/hr Cefepime HCl (Maxipime 1gm) 1 gm in 100 mls @ 100 mls/hr IVPB Q12 [facility]; Protocol Stop: 05/20/18 22:16 Last Admin: 05/19/18 11:16 Dose: 100 mls/hr Insulin Detemir (Levemir) 20 unit SC HS [facility] Last Admin: 05/18/18 22:44 Dose: 20 units Insulin Human Regular (Humulin R Low) 0 units SC ACHS [facility]; Protocol Last Admin: 05/19/18 17:17 Dose: Not Given Isosorbide Mononitrate (Imdur) 60 mg PO DAILY [facility] Last Admin: 05/19/18 11:13 Dose: 60 mg Labetalol HCl (Trandate) 300 mg PO Q8 [facility] Last Admin: 05/19/18 14:53 Dose: Not Given Metoclopramide HCl (Reglan) 5 mg PO ACHS [facility] Last Admin: 05/19/18 17:16 Dose: 5 mg Nifedipine (Procardia Xl) 60 mg PO QPM [facility] Last Admin: 05/19/18 17:10 Dose: 60 mg Nystatin (Nystop Topical Powder) 0 gm TOP TID [facility] Last Admin: 05/19/18 17:13 Dose: 1 applic Ondansetron HCl (Zofran Inj) 4 mg IVP Q4H PRN PRN Reason: Nausea/Vomiting Pantoprazole Sodium (Protonix Ec Tab) 20 mg PO ACB [facility] Last Admin: 05/19/18 08:15 Dose: 20 mg Pregabalin (Lyrica) 50 mg PO BID [facility] Last Admin: 05/19/18 17:10 Dose: 50 mg Saliva Substitute (Saliva Substitute) 0 ml PO 5XD PRN PRN Reason: DRY MOUTH Silver Sulfadiazine (Silvadene 1% 25 Gm) 0 gm TP BID [facility] Last Admin: 05/19/18 17:13 Dose: 25 gm Simethicone (Mylicon Chew Tab) 80 mg PO PCHS PRN PRN Reason: GI distress Vitamin B Complex/Vit C/Folic Acid (Nephro-Holland) 1 tab PO 0800 [facility] Last Admin: 05/19/18 08:15 Dose: 1 tab - Labs Labs: 05/17/18 06:30 05/19/18 06:30 PT 15.0 SECONDS (9.4-12.5) H 05/11/18 13:45 INR 1.30 05/11/18 13:45 APTT 20.4 Seconds (25.1-36.5) L 05/11/18 13:45 - Constitutional Appears: Chronically Ill - Head Exam Head Exam: NORMAL INSPECTION - Respiratory Exam Respiratory Exam: Decreased Breath Sounds - Cardiovascular Exam Cardiovascular Exam: +S1, +S2 - GI/Abdominal Exam GI & Abdominal Exam: Soft. absent: Tenderness Assessment and Plan - Assessment and Plan (Free Text) Plan: Assessment abdominal wall cellulitis with probable infected abdominal mesh; most recent cultures from 05/03/2018 showed Pseudomonas and C. famata S/P small bowel obstruction in this patient with ventral wall hernia, S/P ventral incarcerated hernia repair, adhesiolysis and revision of colostomy S/P acute coronary syndrome with NSTEMI COPD history of VRE UTI history of severe sepsis secondary to left medial thigh abscess, growing Proteus, S/P incision and drainage DM HTN CAD Unresectable rectal cancer S/P chemotherapy and radiation therapy S/P colostomy S/P Port-a-cath placement morbid obesity with BMI 50 obstructive sleep apnea history of pulmonary embolism S/P IVC filter placement Plan on Cefepime and Flagyl and Mycamine as well as intermittent Vancomycin (day 8) - can switch Mycamine to Diflucan since repeat abdominal wound cx are showing C. albicans; follow up further plans of surgery, but apparently the patient has been refusing to have the mesh removed as per other doctors - discussed with Dr. Florian
--- NOTE | 2018-05-20 14:34 | CP.PCM.PN ---
Subjective - Date & Time of Evaluation Date of Evaluation: 05/20/18 Time of Evaluation: 14:34 - Subjective Subjective: Nephrology Consultation Note: Assessment: ARF/CKD 3 stable SBO s/p ex lap ? MESH infection left adrenal adenoma, Rt renal hyperdense cyst chronic hypercapnic respi failure Diabetic chronic Kidney Disease (E11.22) Hypertensive Chronic Kidney Disease (I12.9) Chronic Kidney Disease (N18.3) Stage 3 with 2.4 gm proteinuria (R80.9) likely due to DM/HTN/Obesity Anemia Vit D def morbid obesity, CAD s/p stent, COPD/SUMMER, rectal ca s/p colostomy hypomag Plan No acute need for renal replacement therapy at this time. HTN control on multiple meds; Monitor Input/Output, daily weights and renal function with basic metabolic panel PRBC as needed. d/w heme and okay to use KAVYA from heme perspective. on weekly aransep supplement lytes as needed hold lasix. will give NS @ 50 ml/hr x 1 day Adrenal adenoma work up with plasma renin/aldosterone, plasma metanephrine NEGATIVE. outpt 1 mg dexa suppression test repeat renal sono in 6 months to assess her Rt renal cyst Dose meds/antibiotics for reduced GFR. Avoid fleets enema/magnesium based laxatives. Avoid nephrotoxins/NSAIDs/ iodinated contrast (unless needed emergently) Glycemic control Further work up/management as per primary team Thanks for allowing me to participate in care of your patient. Will follow patient with you. Please call if any Qs. had d/w team Dr Dae Dawn Office: [phone] Chief Complaint;AMS Reason for consult: Acute Kidney Injury, CKD 3 HPI: Pt is a 62 F with hx of diabetes Mellitus (15 years), hypertension (years), CKD 3 with baseline cr 1.2-1.3 recently admitted after complicated abdominal surgery that represents w/ abdominal pain. Was recommended to get mesh removed last admission but refusing and still refusing per surgical service. She does not know why she is in the hospital. She denies n/v. She endorses reduced po intake. ROS: a full detailed ROS is negative except as in my hpi. she feels same. no new complaints. denies CP/SOB Physical Examination: General Appearance: comfortable,morbidly obese. Vitals reviewed and noted as below Head; Atraumatic, normocephalic ENT: dry mucosa EYES: Pupils are equal, round and reactive to light accommodation. Eye muscles and extraocular movement intact. Sclera is anicteric. Neck; supple no lymphadenopathy, no thyromegaly or bruit Lungs: Normal respiratory rate/effort. Breath sounds bilateral equal, diminished at bases but overall limited exam due to her obesity Heart: normal rate. s1s2 normal. No rub or gallop. Extremities: 1+ edema, non pitting lymphedema as well. No varicose veins Neurological: Patient is sleepy today follow commands Skin: Warm and dry. Normal turgor. No rash. Palpitation: Normal elasticity for age Abdomen: Abdomen is + colostomy Psych: flat affect MSK: no joint tenderness or swelling. Digits and nails normal, no deformity : kidney or bladder not palpable Labs/imaging reviewed. Past medical history, past surgical history, family history, social history, allergy reviewed and noted as below Family hx: no hx of CKD. Rest non-contributory Objective - Vital Signs/Intake and Output Vital Signs (last 24 hours): Temp Pulse Resp BP Pulse Ox 98.5 F 89 19 164/61 H 96 05/20/18 06:00 05/20/18 06:06 05/20/18 06:00 05/20/18 06:06 05/20/18 06:00 Intake and Output: 05/20/18 05/20/18 06:59 18:59 Intake Total 120 Output Total 300 Balance -180 - Medications Medications: Current Medications Acetaminophen (Tylenol 325mg Tab) 650 mg PO Q4H PRN PRN Reason: Pain, Mild (1-3) Albuterol/Ipratropium (Duoneb 3 Mg/0.5 Mg (3 Ml) Ud) 3 ml IH [id number] [facility] Last Admin: 05/20/18 14:32 Dose: 3 ml Albuterol/Ipratropium (Duoneb 3 Mg/0.5 Mg (3 Ml) Ud) 3 ml IH Q2H PRN PRN Reason: Shortness of Breath Amlodipine Besylate (Norvasc) 10 mg PO DAILY [facility] Last Admin: 05/19/18 11:13 Dose: 10 mg Apixaban (Eliquis) 2.5 mg PO BID [facility]; Protocol Last Admin: 05/19/18 17:10 Dose: 2.5 mg Arformoterol Tartrate (Brovana) 15 mcg IH [id number] [facility] Last Admin: 05/20/18 07:59 Dose: Not Given Armodafinil (Nuvigil 250 Mg Tab) 250 mg PO DAILY [facility] Last Admin: 05/19/18 11:13 Dose: 250 mg Aspirin (Ecotrin) 81 mg PO DAILY [facility] Last Admin: 05/19/18 11:15 Dose: 81 mg Atorvastatin Calcium (Lipitor) 20 mg PO HS [facility] Last Admin: 05/19/18 23:30 Dose: Not Given Budesonide (Pulmicort Respules) 0.5 mg IH [id number] [facility] Last Admin: 05/20/18 08:00 Dose: Not Given Clonidine HCl (Catapres-Tts3 0.3 Mg/24 Hr) 1 patch TD Q7D@1000 [facility] Last Admin: 05/18/18 11:06 Dose: 1 patch Darbepoetin Timothy (Aranesp) 150 mcg SC QWK [facility] Last Admin: 05/14/18 12:26 Dose: 150 mcg Docusate Sodium (Colace) 100 mg PO TID [facility] Last Admin: 05/19/18 17:10 Dose: 100 mg Ergocalciferol (Drisdol 50,000 Intl Units Cap) 1 cap PO Q7D [facility] Last Admin: 05/18/18 23:00 Dose: Not Given Ferrous Gluconate (Fergon) 324 mg PO DAILY [facility] Last Admin: 05/19/18 11:13 Dose: 324 mg Fluconazole (Diflucan) 100 mg PO DAILY [facility]; Protocol Stop: 05/28/18 10:01 Hydralazine HCl (Apresoline) 100 mg PO TID [facility] Last Admin: 05/19/18 17:16 Dose: 100 mg Hydromorphone HCl (Dilaudid) 2 mg IVP Q4H PRN PRN Reason: Pain, severe (8-10) Last Admin: 05/20/18 10:19 Dose: 2 mg Cefepime HCl (Maxipime 1gm) 1 gm in 100 mls @ 100 mls/hr IVPB Q12 [facility]; Protocol Stop: 05/20/18 22:16 Last Admin: 05/19/18 22:24 Dose: 100 mls/hr Sodium Chloride (Sodium Chloride 0.9%) 1,000 mls @ 50 mls/hr IV .Q20H [facility] Stop: 05/21/18 12:46 Insulin Detemir (Levemir) 20 unit SC HS [facility] Last Admin: 05/19/18 22:22 Dose: 20 units Insulin Human Regular (Humulin R Low) 0 units SC ACHS [facility]; Protocol Last Admin: 05/20/18 09:04 Dose: Not Given Isosorbide Mononitrate (Imdur) 60 mg PO DAILY [facility] Last Admin: 05/19/18 11:13 Dose: 60 mg Labetalol HCl (Trandate) 300 mg PO Q8 [facility] Last Admin: 05/20/18 06:06 Dose: 300 mg Levothyroxine Sodium (Synthroid) 50 mcg PO 0600 [facility] Metoclopramide HCl (Reglan) 5 mg PO [facility] Last Admin: 05/20/18 07:33 Dose: 5 mg Metoprolol Tartrate (Lopressor) 25 mg PO BID [facility] Nifedipine (Procardia Xl) 60 mg PO QPM [facility] Last Admin: 05/19/18 17:10 Dose: 60 mg Nystatin (Nystop Topical Powder) 0 gm TOP TID [facility] Last Admin: 05/19/18 17:13 Dose: 1 applic Ondansetron HCl (Zofran Inj) 4 mg IVP Q4H PRN PRN Reason: Nausea/Vomiting Pantoprazole Sodium (Protonix Ec Tab) 20 mg PO ACB [facility] Last Admin: 05/20/18 07:33 Dose: 20 mg Pregabalin (Lyrica) 50 mg PO BID [facility] Last Admin: 05/19/18 17:10 Dose: 50 mg Saliva Substitute (Saliva Substitute) 0 ml PO 5XD PRN PRN Reason: DRY MOUTH Silver Sulfadiazine (Silvadene 1% 25 Gm) 0 gm TP BID [facility] Last Admin: 05/19/18 17:13 Dose: 25 gm Simethicone (Mylicon Chew Tab) 80 mg PO PCHS PRN PRN Reason: GI distress Vitamin B Complex/Vit C/Folic Acid (Nephro-Holland) 1 tab PO 0800 [facility] Last Admin: 05/20/18 07:33 Dose: 1 tab - Labs Labs: 05/17/18 06:30 05/19/18 06:30 PT 15.0 SECONDS (9.4-12.5) H 05/11/18 13:45 INR 1.30 05/11/18 13:45 APTT 20.4 Seconds (25.1-36.5) L 05/11/18 13:45
[2018-05-20] MEDS: Silver Sulfadiazine 1% Cream (25 gm) TP SCH (14:41)
[2018-05-20 14:44] LABS: HEMOGLOBIN 8.4 g/dL (12.0-16.0); MEAN CELL VOLUME 94.1 fl (80.0-105.0); MEAN CORPUSCULAR HEMOGLOBIN 27.6 pg (25.0-35.0); MEAN CORPUSCULAR HGB CONC 29.4 g/dl (31.0-37.0); MEAN PLATELET VOLUME 9.4 fl (7.0-11.0); RBC 3.04 10^6/uL (3.5-6.1); RED CELL DISTRIBUTION WIDTH 19.3 % (11.5-14.5); WHITE BLOOD COUNT 7.3 10^3/uL (4.5-11.0)
[2018-05-20] MEDS: Cefepime 1gm in NS 100ml 1 GM/100 ML BAG IVPB SCH ×2 (14:45→22:52)
[2018-05-20 15:14] LABS: ALB/GLOB RATIO 0.6 (1.1-1.8); ALBUMIN 2.5 g/dL (3.0-4.8)
[2018-05-20] MEDS ORDERED: Sod Polystyrene Sulf 15 gm/60 ml Susp PO ONE (15:15)
--- NOTE | 2018-05-20 17:03 | PN ---
DATE: 05/20/2018 SUBJECTIVE: The patient is a 62-year-old Guyanese female, admitted in a febrile state and who has what appears to be an anxiety disorder or adjustment disorder in response to her pain and illness. Appetite reportedly has improved, she is afebrile. She is complaining of pain in her back and legs. Her medical history is positive for an abdominal wound infection status post hernia repair, acute renal failure in a woman with history of chronic renal insufficiency probably dieretic related. She has insulin-dependent diabetes mellitus and right-sided heart failure with hypertension, obstructive sleep apnea, morbid obesity, hypercholesterolemia, She is currently on Eliquis, Protonix and psychotropically on Nuvigil 250 mg daily and Lyrica 50 mg b.i.d. Eusebio Mendoza MD/ PhD
--- NOTE | 2018-05-20 17:50 | PN ---
DATE: 05/20/2018 SEX OF THE PATIENT: Female. AGE OF THE PATIENT: 62 years. REASON FOR CONSULTATION: Cardiac evaluation, history of congestive heart failure, [facility]. This note is in addition to dictated by our nurse practitioner Tiffanie Osborne. SUBJECTIVE: This is a 62-year-old morbidly obese female with a history of coronary artery disease, history of PTCA in the past, history of DVT and PE, history of bowel dissection, and status post small bowel obstruction in 07/17/2017. RECOMMENDATIONS: Continue Eliquis for DVT and PE. Continue Norvasc. Continue beta-joseph. Continue Lipitor. Continue clonidine. Continue nifedipine. Continue Imdur. The patient awaiting for the bed to be transferred to subacute rehab facility. We will continue low dose beta-joseph as well. We will follow with you. Monitor blood potassium closely. Repeat the labs in the morning. Thank you Dr. Florian for providing us opportunity in taking care of the patient Pedro Guevara. Pamela Guerrero MD
[2018-05-20] MEDS: Armodafinil 250 mg Tab PO SCH (18:20)
[2018-05-20] MEDS: NIFEdipine 60 mg ER Tab PO SCH (18:33)
[2018-05-20] MEDS: Sodium Chloride 0.9% 1,000 ML IV SCH (18:34)
[2018-05-20] MEDS: Insulin Detemir 100 units/ml Vial (Levemir) SC SCH (22:52)
[2018-05-21] MEDS: Albuterol-Ipratrop 3 mg / 0.5 (3 ml) UD IH SCH ×4 (01:20→20:09)
[2018-05-21] MEDS: HYDROmorphone 2 mg/ml ISec IVP PRN (05:21)
[2018-05-21] MEDS: Levothyroxine 50 MCG TAB PO SCH (05:55)
--- NOTE | 2018-05-21 06:43 | CP.PCM.PN ---
Subjective - Date & Time of Evaluation Date of Evaluation: 05/21/18 Time of Evaluation: 06:15 - Subjective Subjective: Lying in bed, comfortable, no distress, Reason for consultation and follow up: Cardiac evaluation of history of congestive heart failure, transferred from [facility] due to [facility]argy Seen and examined by me and Dr. Guerrero Objective - Vital Signs/Intake and Output Vital Signs (last 24 hours): Temp Pulse Resp BP Pulse Ox 98.5 F 89 19 110/52 L 96 05/20/18 06:00 05/21/18 05:55 05/20/18 06:00 05/21/18 05:55 05/20/18 06:00 - Medications Medications: Current Medications Acetaminophen (Tylenol 325mg Tab) 650 mg PO Q4H PRN PRN Reason: Pain, Mild (1-3) Albuterol/Ipratropium (Duoneb 3 Mg/0.5 Mg (3 Ml) Ud) 3 ml IH [id number] [facility] Last Admin: 05/21/18 01:20 Dose: 3 ml Albuterol/Ipratropium (Duoneb 3 Mg/0.5 Mg (3 Ml) Ud) 3 ml IH Q2H PRN PRN Reason: Shortness of Breath Amlodipine Besylate (Norvasc) 10 mg PO DAILY [facility] Last Admin: 05/20/18 14:39 Dose: 10 mg Apixaban (Eliquis) 2.5 mg PO BID [facility]; Protocol Last Admin: 05/20/18 18:32 Dose: 2.5 mg Arformoterol Tartrate (Brovana) 15 mcg IH [id number] [facility] Last Admin: 05/20/18 20:32 Dose: 15 mcg Armodafinil (Nuvigil 250 Mg Tab) 250 mg PO DAILY [facility] Last Admin: 05/20/18 18:20 Dose: Not Given Aspirin (Ecotrin) 81 mg PO DAILY [facility] Last Admin: 05/20/18 14:39 Dose: 81 mg Atorvastatin Calcium (Lipitor) 20 mg PO HS [facility] Last Admin: 05/20/18 22:50 Dose: 20 mg Budesonide (Pulmicort Respules) 0.5 mg IH [id number] [facility] Last Admin: 05/20/18 20:33 Dose: 0.5 mg Clonidine HCl (Catapres-Tts3 0.3 Mg/24 Hr) 1 patch TD Q7D@1000 [facility] Last Admin: 05/18/18 11:06 Dose: 1 patch Darbepoetin Timothy (Aranesp) 150 mcg SC QWK [facility] Last Admin: 05/14/18 12:26 Dose: 150 mcg Docusate Sodium (Colace) 100 mg PO TID [facility] Last Admin: 05/20/18 18:32 Dose: 100 mg Ergocalciferol (Drisdol 50,000 Intl Units Cap) 1 cap PO Q7D [facility] Last Admin: 05/18/18 23:00 Dose: Not Given Ferrous Gluconate (Fergon) 324 mg PO DAILY [facility] Last Admin: 05/19/18 11:13 Dose: 324 mg Fluconazole (Diflucan) 100 mg PO DAILY [facility]; Protocol Stop: 05/28/18 10:01 Hydralazine HCl (Apresoline) 100 mg PO TID [facility] Last Admin: 05/20/18 18:32 Dose: 100 mg Hydromorphone HCl (Dilaudid) 2 mg IVP Q4H PRN PRN Reason: Pain, severe (8-10) Last Admin: 05/21/18 05:21 Dose: 2 mg Sodium Chloride (Sodium Chloride 0.9%) 1,000 mls @ 50 mls/hr IV .Q20H [facility] Stop: 05/21/18 12:46 Last Admin: 05/20/18 18:34 Dose: 50 mls/hr Insulin Detemir (Levemir) 20 unit SC HS [facility] Last Admin: 05/20/18 22:52 Dose: 20 units Insulin Human Regular (Humulin R Low) 0 units SC [facility]; Protocol Last Admin: 05/20/18 18:18 Dose: Not Given Isosorbide Mononitrate (Imdur) 60 mg PO DAILY [facility] Last Admin: 05/20/18 18:33 Dose: 60 mg Labetalol HCl (Trandate) 300 mg PO Q8 [facility] Last Admin: 05/21/18 05:55 Dose: 300 mg Levothyroxine Sodium (Synthroid) 50 mcg PO 0600 [facility] Last Admin: 05/21/18 05:55 Dose: 50 mcg Metoclopramide HCl (Reglan) 5 mg PO [facility] Last Admin: 05/20/18 22:50 Dose: 5 mg Metoprolol Tartrate (Lopressor) 25 mg PO BID [facility] Last Admin: 05/20/18 18:33 Dose: 25 mg Nifedipine (Procardia Xl) 60 mg PO QPM [facility] Last Admin: 05/20/18 18:33 Dose: 60 mg Nystatin (Nystop Topical Powder) 0 gm TOP TID [facility] Last Admin: 05/20/18 14:41 Dose: Not Given Ondansetron HCl (Zofran Inj) 4 mg IVP Q4H PRN PRN Reason: Nausea/Vomiting Pantoprazole Sodium (Protonix Ec Tab) 20 mg PO ACB [facility] Last Admin: 05/20/18 07:33 Dose: 20 mg Pregabalin (Lyrica) 50 mg PO BID [facility] Last Admin: 05/20/18 18:33 Dose: 50 mg Saliva Substitute (Saliva Substitute) 0 ml PO 5XD PRN PRN Reason: DRY MOUTH Silver Sulfadiazine (Silvadene 1% 25 Gm) 0 gm TP BID [facility] Last Admin: 05/20/18 14:41 Dose: Not Given Simethicone (Mylicon Chew Tab) 80 mg PO PCHS PRN PRN Reason: GI distress Vitamin B Complex/Vit C/Folic Acid (Nephro-Holland) 1 tab PO 0800 [facility] Last Admin: 05/20/18 07:33 Dose: 1 tab - Labs Labs: 05/20/18 14:37 05/20/18 14:37 PT 15.0 SECONDS (9.4-12.5) H 05/11/18 13:45 INR 1.30 05/11/18 13:45 APTT 20.4 Seconds (25.1-36.5) L 05/11/18 13:45 - Constitutional Appears: Non-toxic, No Acute Distress - Head Exam Head Exam: NORMAL INSPECTION, NORMOCEPHALIC - Eye Exam Eye Exam: Normal appearance Pupil Exam: NORMAL ACCOMODATION - ENT Exam ENT Exam: Mucous Membranes Moist - Respiratory Exam Respiratory Exam: Decreased Breath Sounds, NORMAL BREATHING PATTERN - Cardiovascular Exam Cardiovascular Exam: +S1, +S2 - GI/Abdominal Exam GI & Abdominal Exam: Soft, Normal Bowel Sounds Additional comments: colostomy - Extremities Exam Additional comments: 2-3+ edema - Neurological Exam Neurological Exam: Alert, Awake - Psychiatric Exam Psychiatric exam: Normal Affect, Normal Mood - Skin Skin Exam: Dry, Normal Color, Warm Assessment and Plan - Assessment and Plan (Free Text) Assessment: A 62 year old morbidly obese female who got transferred to [facility] from [facility] due to altered mental status. Patient is known to service from previous multiple admissions. History of coronary artery disease with stent of cir cumflex,hypertension,hyperlipidemia,diabetes,sleep apnea,COPD, congestive heart failure, DVT/PE. History of bowel resection in the past with colostomy. She was admitted to [facility] due to small bowel obstruction and on 04/16/18 she had explor- lap and lysis of adhesions and ventral hernia repair with revision of colostomy (Dr. Mckeon).Postoperatively, patient had infection involving th mesh placed for the hernia repair and it was recommended that she undergo an additional procedure to have the mesh removed however patient refused surgical procedure. She was stablized and transferred to [facility]. Chest X ray showed severe cardiomegaly,moderate to severe pulmonary congestion.Not in respiratory dis tress, On nasal cannula 4l/min. Troponin 0.14/.15, denies chest pain, EKG- normal sinus rhythm, elevated due to renal insuffiency. Will treat medically. Surgical follow up for abdominal wound. Symptoms clinically improved. Cardiac status stable.Repeat Chest X ray from last Sunday showed improved vascular congestion. Accepted to [facility]. Plan: K elevated yesterday given Kayexalate 30 gms x 1, Repeat pending today. Started IV hydration of NSS at 50 cc/hr. Cardiac status stable No distress, Denies chest pain,denies pain, moaning Heart rate controlled Blood pressure controlled No further cardiac work up at this point On Norvasc 10 mg daily, Eliquis 2.5 mg BID, ASA 81 mg daily, Lipitor 20 mg daily,Clonidine patch weekly,Lasix 40 mg daily, Labetolol 300 mg every 8 hours, Nifedipine 60 mg daily, Imdur 60 mg daily Continue current treatment Continue current medications Controlled glucose Discharge planning, Accepted at [facility] Will follow up Plan and treatment discussed with Dr. Guerrero
[2018-05-21 06:53] LABS: BASO # 0.06 K/mm3 (0.0-2.0); BASO % 0.7 % (0.0-3.0); EOS # 0.4 (0.0-0.7); EOS % 4.7 % (1.5-5.0); GRAN # 4.33 (1.4-6.5); GRAN % 52.2 % (50.0-68.0); HEMOGLOBIN 8.7 g/dL (12.0-16.0); LYMPH # 2.8 (1.2-3.4); LYMPH % 33.4 % (22.0-35.0); MEAN CELL VOLUME 95.6 fl (80.0-105.0); MEAN CORPUSCULAR HEMOGLOBIN 27.6 pg (25.0-35.0); MEAN CORPUSCULAR HGB CONC 28.9 g/dl (31.0-37.0); MEAN PLATELET VOLUME 9.7 fl (7.0-11.0); MONO # 0.8 (0.1-0.6); RBC 3.15 10^6/uL (3.5-6.1); RED CELL DISTRIBUTION WIDTH 19.6 % (11.5-14.5); WHITE BLOOD COUNT 8.3 10^3/uL (4.5-11.0)
[2018-05-21 07:28] LABS: FREE T4 1.34 ng/dL (0.78-2.19)
[2018-05-21] MEDS: Arformoterol 15 mcg/2 ml Inh Sol IH SCH ×2 (07:37→20:08)
[2018-05-21] MEDS: Budesonide 0.5 mg/2 ml Inhal Susp UD IH SCH ×2 (07:37→20:09)
[2018-05-21 07:42] LABS: ALB/GLOB RATIO 0.6 (1.1-1.8); ALBUMIN 2.6 g/dL (3.0-4.8); CALCIUM 8.1 mg/dL (8.4-10.5)
[2018-05-21] MEDS: Insulin Reg-LOW-Coverage SC SCH ×4 (07:58→22:21)
[2018-05-21] MEDS: Multivitamin Vitamin B Complex (Nephro-Vite) Tab PO SCH (07:58)
[2018-05-21] MEDS: Sodium Chloride 0.9% 1,000 ML IV SCH (07:59)
[2018-05-21] MEDS: Pantoprazole 20 mg EC Tab PO SCH (07:59)
--- NOTE | 2018-05-21 08:52 | CON ---
DATE: 05/20/2018 NEUROLOGY CONSULT CHIEF COMPLAINT: Weakness. CURRENT HISTORY OF PRESENT ILLNESS: This is a 62-year-old woman with past medical history of coronary artery disease with stent in circumflex, hypertension, hyperlipidemia, type 2 diabetes mellitus, CPAP, COPD, congestive heart failure, DVT and PE, history of recent surgeries, history of gallstone resection in the past with colostomy. She was admitted to [facility] with small bowel obstruction on 04/16/2018. She had exploratory laparotomy and lysis of adhesions and ventral hernia repair with revision of colostomy by Dr. Mckeon. Postoperatively, she had infection involving the mesh placed and a hernia repair was recommended that she undergo an additional procedure to have the mesh removed, however, the patient refused procedure at this time. She is [place], now she is back . Chest x-ray severe pulmonary congestion and had elevated . She has renal insufficiency. Surgery is following up for the abdominal wound cyst. She has abdominal wall cellulitis with probably infected abdominal mesh. Most recently cultures on 05/03/2018 showing Pseudomonas . ID is on board, as well as cefepime, Flagyl and . The patient has been refusing to the mesh to be removed. Apparently, she is generally weak and she lay deconditioned. She should be out of bed to chair. Would avoid doing any further testing. Needs to monitor and get her out of bed to chair since she is so we will need to participate more for rehab scenario. PAST MEDICAL HISTORY: As above. SOCIAL HISTORY: No illicit drug use, smoking or ETOH abuse. REVIEW OF SYSTEMS: Fourteen-point review of systems is as per HPI. FAMILY HISTORY: Noncontributory. MEDICATIONS: Reviewed by nurse's reconciliation sheet. LABORATORY DATA: Today's blood sugar is 94. PHYSICAL EXAMINATION: VITAL SIGNS: Temperature is 98.5, pulse rate of 62, blood pressure 164/61, respiratory rate 19 and oxygen saturation 93% on BiPAP. HEENT: Atraumatic and normocephalic. PERRLA. Extraocular muscles intact. Mucous membrane is dry. NECK: Supple. No JVD. No adenopathy noted. LUNGS: Decreased breath sounds bilaterally. HEART: S1, S2. Normal rate and rhythm. No murmurs, rubs or gallops. ABDOMEN: Soft, nontender. Bowel sounds are present. Has colostomy. EXTREMITIES: 2+ edema bilaterally as well as in the bilateral upper extremities. Peripheral pulses 2+ bilaterally. NEUROLOGIC: The patient is alert and oriented to person, place, anxious. Follows simple commands. Speech is hypophonic, no aphasia noted. Motor examination: Generally deconditioned. She is generally weak and does not give enough in her upper and lower extremities, and has in her both upper and lower extremities. Sensory exam: light touch to . DTRs are 2+ throughout and 1 at both knees and ankles. Coordination: Gait is deferred for now. IMPRESSION: General lethargy and weakness is secondary from chronic medical problems. PLAN: 1. At this time, I recommend to get her out of bed to chair. 2. To continue with her antibiotics as provided by mesh and cellulitis/infection. 3. Keep systolic blood pressure at 130s-140s, diastolic to 70s-80s. 4. Monitor electrolytes and correct accordingly. 5. Subacute rehab replacement and BiPAP. This should be consistent for her underlying COPD. Thanks for this consult. Lg Berger MD
[2018-05-21] MEDS: Sod Polystyrene Sulf 15 gm/60 ml Susp PO SCH ×2 (09:29→14:09)
[2018-05-21] MEDS: Nystatin 100,000 Units/gm Topical Pow(15 gm) TOP SCH ×3 (09:40→17:10)
[2018-05-21] MEDS: Sodium Chloride 0.45% 1,000 ML IV SCH (09:41)
[2018-05-21] MEDS: Silver Sulfadiazine 1% Cream (25 gm) TP SCH ×2 (09:41→17:10)
[2018-05-21] MEDS: Magnesium Oxide 400 mg Tab UD PO SCH ×2 (09:45→17:09)
[2018-05-21] MEDS: Darbepoetin Alfa 100 mcg/ml Inj SC SCH (09:55)
--- NOTE | 2018-05-21 12:40 | CP.PCM.APN ---
Subjective - Date & Time of Evaluation Date of Evaluation: 05/21/18 Time of Evaluation: 11:35 - Subjective Subjective: pt seen asleep in bed NAD Objective - Vital Signs/Intake and Output Vital Signs (last 24 hours): Temp Pulse Resp BP Pulse Ox 97.5 F L 85 20 107/50 L 95 05/21/18 06:00 05/21/18 09:40 05/21/18 06:00 05/21/18 09:40 05/21/18 06:00 - Medications Medications: Current Medications Acetaminophen (Tylenol 325mg Tab) 650 mg PO Q4H PRN PRN Reason: Pain, Mild (1-3) Albuterol/Ipratropium (Duoneb 3 Mg/0.5 Mg (3 Ml) Ud) 3 ml IH [id number] [facility] Last Admin: 05/21/18 07:37 Dose: 3 ml Albuterol/Ipratropium (Duoneb 3 Mg/0.5 Mg (3 Ml) Ud) 3 ml IH Q2H PRN PRN Reason: Shortness of Breath Amlodipine Besylate (Norvasc) 10 mg PO DAILY [facility] Last Admin: 05/21/18 09:40 Dose: Not Given Apixaban (Eliquis) 2.5 mg PO BID [facility]; Protocol Last Admin: 05/21/18 09:29 Dose: 2.5 mg Arformoterol Tartrate (Brovana) 15 mcg IH [id number] [facility] Last Admin: 05/21/18 07:37 Dose: 15 mcg Aspirin (Ecotrin) 81 mg PO DAILY [facility] Last Admin: 05/21/18 09:29 Dose: 81 mg Atorvastatin Calcium (Lipitor) 20 mg PO HS [facility] Last Admin: 05/20/18 22:50 Dose: 20 mg Budesonide (Pulmicort Respules) 0.5 mg IH [id number] [facility] Last Admin: 05/21/18 07:37 Dose: 0.5 mg Clonidine HCl (Catapres-Tts3 0.3 Mg/24 Hr) 1 patch TD Q7D@1000 [facility] Last Admin: 05/18/18 11:06 Dose: 1 patch Darbepoetin Timothy (Aranesp) 150 mcg SC QWK [facility] Last Admin: 05/21/18 09:55 Dose: 150 mcg Docusate Sodium (Colace) 100 mg PO TID [facility] Last Admin: 05/21/18 09:29 Dose: 100 mg Ergocalciferol (Drisdol 50,000 Intl Units Cap) 1 cap PO Q7D [facility] Last Admin: 05/18/18 23:00 Dose: Not Given Ferrous Gluconate (Fergon) 324 mg PO DAILY [facility] Last Admin: 05/21/18 09:31 Dose: 324 mg Fluconazole (Diflucan) 100 mg PO DAILY [facility]; Protocol Stop: 05/28/18 10:01 Last Admin: 05/21/18 09:31 Dose: 100 mg Hydralazine HCl (Apresoline) 100 mg PO TID [facility] Last Admin: 05/21/18 09:35 Dose: Not Given Hydromorphone HCl (Dilaudid) 2 mg IVP Q4H PRN PRN Reason: Pain, severe (8-10) Last Admin: 05/21/18 05:21 Dose: 2 mg Sodium Chloride (Sodium Chloride 0.45%) 1,000 mls @ 100 mls/hr IV .Q10H [facility] Last Admin: 05/21/18 09:41 Dose: 100 mls/hr Insulin Detemir (Levemir) 20 unit SC HS [facility] Last Admin: 05/20/18 22:52 Dose: 20 units Insulin Human Regular (Humulin R Low) 0 units SC [facility]; Protocol Last Admin: 05/21/18 11:46 Dose: Not Given Isosorbide Mononitrate (Imdur) 60 mg PO DAILY [facility] Last Admin: 05/21/18 09:40 Dose: Not Given Labetalol HCl (Trandate) 300 mg PO Q8 [facility] Last Admin: 05/21/18 05:55 Dose: 300 mg Levothyroxine Sodium (Synthroid) 50 mcg PO 0600 [facility] Last Admin: 05/21/18 05:55 Dose: 50 mcg Magnesium Oxide (Mag-Ox) 400 mg PO BID [facility] Last Admin: 05/21/18 09:45 Dose: 400 mg Metoclopramide HCl (Reglan) 5 mg PO ACHS [facility] Last Admin: 05/21/18 11:46 Dose: Not Given Nifedipine (Procardia Xl) 60 mg PO QPM [facility] Last Admin: 05/20/18 18:33 Dose: 60 mg Nystatin (Nystop Topical Powder) 0 gm TOP TID [facility] Last Admin: 05/21/18 09:40 Dose: 1 applic Ondansetron HCl (Zofran Inj) 4 mg IVP Q4H PRN PRN Reason: Nausea/Vomiting Pantoprazole Sodium (Protonix Ec Tab) 20 mg PO ACB [facility] Last Admin: 05/21/18 07:59 Dose: Not Given Pregabalin (Lyrica) 50 mg PO BID [facility] Last Admin: 05/21/18 09:40 Dose: Not Given Saliva Substitute (Saliva Substitute) 0 ml PO 5XD PRN PRN Reason: DRY MOUTH Silver Sulfadiazine (Silvadene 1% 25 Gm) 0 gm TP BID [facility] Last Admin: 05/21/18 09:41 Dose: 1 gm Simethicone (Mylicon Chew Tab) 80 mg PO PCHS PRN PRN Reason: GI distress Sodium Polystyrene Sulfonate (Kayexalate Susp) 30 gm PO 0900,1400 [facility] Stop: 05/21/18 14:05 Last Admin: 05/21/18 09:29 Dose: 30 gm Vitamin B Complex/Vit C/Folic Acid (Nephro-Holland) 1 tab PO 0800 [facility] Last Admin: 05/21/18 07:58 Dose: Not Given - Labs Labs: 05/21/18 06:20 05/21/18 06:20 PT 15.0 SECONDS (9.4-12.5) H 05/11/18 13:45 INR 1.30 05/11/18 13:45 APTT 20.4 Seconds (25.1-36.5) L 05/11/18 13:45 - Constitutional Appears: Non-toxic, No Acute Distress - Head Exam Head Exam: NORMAL INSPECTION, NORMOCEPHALIC - Respiratory Exam Respiratory Exam: NORMAL BREATHING PATTERN - Cardiovascular Exam Cardiovascular Exam: +S1, +S2 - GI/Abdominal Exam GI & Abdominal Exam: Soft Additional comments: colocstomy intact, adb dsgs with no drainage - Extremities Exam Extremities Exam: Normal Capillary Refill - Neurological Exam Neurological Exam: Alert, Oriented x3 - Psychiatric Exam Psychiatric exam: Flat Affect, Normal Mood - Skin Skin Exam: Dry, Warm Assessment and Plan - Assessment and Plan (Free Text) Plan: Abnormal Lab Results 05/20/18 05/20/18 05/20/18 14:37 14:37 14:37 WBC 7.3 RBC 3.04 L Hgb 8.4 L Hct 28.6 L MCV 94.1 MCH 27.6 MCHC 29.4 L RDW 19.3 H Plt Count 394 MPV 9.4 Gran % Lymph % (Auto) [place] % (Auto) Eos % (Auto) Baso % (Auto) Gran # Lymph # (Auto) [place] # (Auto) Eos # (Auto) Baso # (Auto) Sodium 136 Potassium 5.6 H* Chloride 106 Carbon Dioxide 27 Anion Gap 9 L BUN 63 H Creatinine 2.7 H Est GFR ( Amer) 22 Est GFR (Non-Af Amer) 18 POC Glucose (mg/dL) Random Glucose 150 H Calcium 8.0 L Phosphorus Magnesium Total Bilirubin 0.3 AST 32 ALT 20 Alkaline Phosphatase 135 H Total Protein 6.7 Albumin 2.5 L Globulin 4.1 Albumin/Globulin Ratio 0.6 L Free T4 TSH 3rd Generation 1.71 05/20/18 05/20/18 05/21/18 16:20 22:29 06:20 WBC 8.3 RBC 3.15 L Hgb 8.7 L Hct 30.1 L MCV 95.6 MCH 27.6 MCHC 28.9 L RDW 19.6 H Plt Count 447 MPV 9.7 Gran % 52.2 Lymph % (Auto) 33.4 [place] % (Auto) 9.0 H Eos % (Auto) 4.7 Baso % (Auto) 0.7 Gran # 4.33 Lymph # (Auto) 2.8 [place] # (Auto) 0.8 H Eos # (Auto) 0.4 Baso # (Auto) 0.06 Sodium Potassium Chloride Carbon Dioxide Anion Gap BUN Creatinine Est GFR ( Amer) Est GFR (Non-Af Amer) POC Glucose (mg/dL) 139 H 143 H Random Glucose Calcium Phosphorus Magnesium Total Bilirubin AST ALT Alkaline Phosphatase Total Protein Albumin Globulin Albumin/Globulin Ratio Free T4 TSH 3rd Generation 05/21/18 05/21/18 05/21/18 06:20 06:20 06:53 WBC RBC Hgb Hct MCV MCH MCHC RDW Plt Count MPV Gran % Lymph % (Auto) [place] % (Auto) Eos % (Auto) Baso % (Auto) Gran # Lymph # (Auto) [place] # (Auto) Eos # (Auto) Baso # (Auto) Sodium 139 Potassium 5.8 H* Chloride 106 Carbon Dioxide 26 Anion Gap 13 BUN 66 H Creatinine 3.0 H Est GFR ( Amer) 19 Est GFR (Non-Af Amer) 16 POC Glucose (mg/dL) 132 H Random Glucose 127 H Calcium 8.1 L Phosphorus 6.7 H Magnesium 1.7 Total Bilirubin 0.3 AST 49 H D ALT 16 Alkaline Phosphatase 145 H Total Protein 6.9 Albumin 2.6 L Globulin 4.3 Albumin/Globulin Ratio 0.6 L Free T4 1.34 TSH 3rd Generation 1.62 05/21/18 11:38 WBC RBC Hgb Hct MCV MCH MCHC RDW Plt Count MPV Gran % Lymph % (Auto) [place] % (Auto) Eos % (Auto) Baso % (Auto) Gran # Lymph # (Auto) [place] # (Auto) Eos # (Auto) Baso # (Auto) Sodium Potassium Chloride Carbon Dioxide Anion Gap BUN Creatinine Est GFR ( Amer) Est GFR (Non-Af Amer) POC Glucose (mg/dL) 112 H Random Glucose Calcium Phosphorus Magnesium Total Bilirubin AST ALT Alkaline Phosphatase Total Protein Albumin Globulin Albumin/Globulin Ratio Free T4 TSH 3rd Generation Microbiology 05/11/18 19:35 Blood Blood Culture - Final NO GROWTH AFTER 5 DAYS 05/11/18 19:35 Blood Gram Stain - Final TEST NOT PERFORMED 05/11/18 13:45 Blood Blood Culture - Final NO GROWTH AFTER 5 DAYS 05/11/18 13:45 Blood Gram Stain - Final TEST NOT PERFORMED 05/12/18 22:54 Abdomen Gram Stain - Final 05/12/18 22:54 Abdomen Wound Culture - Final Megan Albicans 05/11/18 15:39 Urine,Catheterized Urine Culture - Final Yeast Species A/P 62 yr old female with pmh sig for htn, hld, unresectable colon ca sbo s/p abd surgery 04/14/18 with probable infection involving the mesh placed during the surgery now brought to the Er from [facility] for lethargy and fever now being evaluated by ID for abd wall cellulitis with recent cultures may 03 showing pseudomons and c. famata, with additonal abdominal wound and UC showing yeast species/ megan albicans per discussion with ID yesterday , changed to p.o. diflucan 100mg x 7 days and continue iv maxipime x 7 days DC to [facility] was cancelled by PMD due to hyperkalemia which has worsened /persists today at 5.8 - pt with reduced p.o intake. lethargic on ivf per renal with urine studies pending plan of care discussed with IDT in rounds. will continue to follow - BPCI/TIC - BPCIA/TIC Educated pt/family on BPCIA/CIR/Med to Bed Programs: Yes Flyers given, including [facility] Beneficiary letter: Yes Pt/family verbalized understanding & agreed to program: Yes
--- NOTE | 2018-05-21 12:53 | CP.PCM.PCO ---
Physician Communication Note - Physician Communication Note Physician Communication Note: hold dilaudid since it makes lethargy worse.
--- NOTE | 2018-05-21 12:54 | PN ---
DATE: 05/21/2018 PULMONARY PROGRESS NOTE REFERRING PHYSICIAN: Dr. Florian. SUBJECTIVE: The patient in bed, no acute distress. Nursing staff reports the patient was just given pain medication. The patient is sleepy, tired. No overnight events reported. The patient did not wear BiPAP machine last night. No hemoptysis, hematosis, hematuria, diarrhea, leg swelling reported. OBJECTIVE VITAL SIGNS: Blood pressure 110/52, pulse 89, temperature 97.5, oxygen saturation 95. GENERAL: No acute distress. HEENT: Moist mucous membranes. Crowded airway. Mallampati score of 4. NECK: Supple. No JVD. LUNGS: Few scattered rhonchi bilaterally. CARDIOVASCULAR: S1, S2 audible. ABDOMEN: Colostomy with liquid stool. Surgical site with dressing in place. EXTREMITIES: Trace bilateral lower extremity edema. NEUROLOGIC: Asleep, arousable. Increased confusion. MEDICATIONS: Reviewed. Tylenol 650 mg every 4 hours p.r.n. for mild pain, DuoNeb 3 mL inhalation every 2 hours p.r.n., DuoNeb 3 mL inhalation every 6 hours, Norvasc 10 mg p.o. daily, Eliquis 2.5 mg twice a day, Brovana 15 mcg every 12 hours, aspirin 81 mg p.o. daily, Lipitor 20 mg at bedtime, Pulmicort 0.5 mg inhalation every 12 hours, clonidine 0.3 mg weekly, clonidine patch, Aranesp 150 mcg weekly, Colace 100 mg three times a day, ergocalciferol 50,000 units every 7 days, ferrous gluconate 324 mg p.o. daily, Diflucan 100 mg p.o. daily, hydralazine 100 mg p.o. three times a day, Dilaudid 2 mg IV push every 4 hours p.r.n., Levemir 20 units at bedtime, Humulin R sliding scale, isosorbide mononitrate 60 mg p.o. daily, labetalol 300 mg every 8 hours, Synthroid 50 mcg daily, magnesium oxide 400 mg twice a day, Reglan 5 mg a.c. and at bedtime, Procardia XL 60 mg in the evening, nystatin topically three times a day to affected area, Zofran 4 mg IV push every 4 hours p.r.n., Protonix 20 mg in the evening, Lyrica 50 mg twice a day, saliva substitute five times a day p.r.n., Silvadene topically twice a day to the affected area, simethicone 80 mg at bedtime p.r.n., sodium chloride 1000 mL at 100 mL per hour IV, Kayexalate 30 g twice a day today, Nephro-Holland one tab p.o. daily. LABORATORY DATA: Reviewed. WBC 8.3, RBC 3.15, hemoglobin 8.7, hematocrit 30.1, platelets 447. Sodium 139, potassium 5.8, chloride 106, carbon dioxide 26, anion gap 13, BUN 66, creatinine 3.0, GFR 16, random glucose 127. Calcium 8.1, phosphorus 6.7, magnesium 1.7. Total bilirubin 0.3. AST 49, ALT 16, alkaline phosphatase 145. Total protein 6.9, albumin 2.6, globulin 4.3, albumin/globulin ratio 0.6. Free T4 of 134. TSH 1.62. IMPRESSION AND PLAN: Status post laparotomy for small bowel obstruction, hernia repair and relocation of colostomy, hypoventilation syndrome, sleep apnea syndrome, carbon dioxide retention, and hypoxemia, history of pulmonary embolism and deep venous thrombosis, diabetes, chronic lung disease, pulmonary hypertension, mesh infection, had Celsa in the wound. Continue to encourage bilevel positive airway pressure use at bedtime, keep head of bed elevated at 45 degrees, sleep apnea precaution, deep venous thrombosis prophylaxis, gastric prophylaxis, pain management. We will discontinue daytime stimulant at this time and consult Neurology for altered mental status. The patient being given Kayexalate for elevated potassium level today. Need to followup with labs in the morning. This patient was seen and examined with Dr. Ayala. Discussed assessment and plan as described above. Thank you for this consult. We will follow with you. Breezy Schafer APN Pamela Ayala MD
[2018-05-21 13:18] LABS: PH,URINE 6.5 (4.7-8.0); URINE BILIRUBIN MODERATE (NEGATIVE); URINE BLOOD LARGE (NEGATIVE); URINE GLUCOSE (UA) 100 mg/dL (NEGATIVE); URINE LEUKOCYTE ESTERASE TRACE Leu/uL (NEGATIVE); URINE PROTEIN >=300 mg/dL (<30 mg/dL)
[2018-05-21 13:20] LABS: URINE APPEARANCE CLOUDY (CLEAR); URINE COLOR BROWN (YELLOW)
[2018-05-21 13:22] LABS: URINE RBC TNTC /hpf (0-2)
[2018-05-21 13:23] LABS: URINE BACTERIA FEW /hpf
[2018-05-21 13:24] LABS: URINE AMORPHOUS SEDIMENT FEW /hpf; URINE COARSE GRANULAR CAST SMALL /hpf
[2018-05-21 13:31] LABS: CREATININE,RANDOM URINE 81 mg/dL
[2018-05-21] MEDS: Cefepime 1gm in NS 100ml 1 GM/100 ML BAG IVPB SCH (13:59)
--- NOTE | 2018-05-21 14:01 | PN ---
DATE: 05/20/2018 SUBJECTIVE: The patient complained of feeling weak, otherwise no new complaint. The patient noted her potassium is high at 5.5 and no other complaint except back and leg pain which is better than before. No short of breath. No nausea. No vomiting. PHYSICAL EXAMINATION: VITAL SIGNS: Temperature 98, heart rate 93, blood pressure 130/64 and respirations 18. HEAD AND NECK: Normal. No JVD and no thyromegaly. CHEST: Clear bilateral. CARDIAC: First sound and second sounds are normal. ABDOMEN: Obese and nontender. Wound seems dry and colostomy intact. Bowel sounds intact. EXTREMITIES: No edema. NEUROLOGIC: . LABORATORY DATA: White count 7.3, hemoglobin 8.4, hematocrit 28.6, and platelets 394. Her chemistry noted for on the , sodium 136, potassium 5.6, chloride 106, bicarb 27, BUN 63, creatinine is 2.7, sugar is 150, calcium is 8, alkaline phosphatase 135, TSH 1.71. IMPRESSION AND PLAN: 1. Acute renal failure. The patient is dehydrated. We will discontinue Lasix.. She is on 50 mL per hour as per Nephrology. We will monitor her creatinine in the morning, and we will repeat her potassium in the morning. We can hold any discharge at this time. Kayexalate was given soon. 2. Hyperkalemia. Kayexalate given, repeat chemistry in the morning. 3. Wound infections, continue current antibiotic . The patient getting meropenem, nystatin local powder and we will continue current therapy with ID consult. 4. History of coronary artery disease, right coronary artery stent, right sided untreated, pulmonary hypertension. We will followup in length. 5. Insulin-dependent diabetes, continue insulin. 6. Hypertension, difficult control, continue Lopressor, continue clonidine patch and pills. Continue Norvasc, Procardia, hydralazine and we will follow up clinically. 7. Obstructive sleep apnea and morbid obesity, continue BiPAP , Provigil. 8. Hypothyroidism, continue Synthroid. Her TSH is normal. PLAN: Continue current therapy. Repeat labs in the morning. Elroy Florian MD
--- NOTE | 2018-05-21 14:11 | CP.PCM.PN ---
Subjective - Date & Time of Evaluation Date of Evaluation: 05/21/18 Time of Evaluation: 14:10 - Subjective Subjective: Nephrology Consultation Note: Assessment: worsening ARF/CKD 3 SBO s/p ex lap ? MESH infection left adrenal adenoma, Rt renal hyperdense cyst chronic hypercapnic respi failure Diabetic chronic Kidney Disease (E11.22) Hypertensive Chronic Kidney Disease (I12.9) Chronic Kidney Disease (N18.3) Stage 3 with 2.4 gm proteinuria (R80.9) likely due to DM/HTN/Obesity Anemia Vit D def morbid obesity, CAD s/p stent, COPD/SUMMER, rectal ca s/p colostomy hypomag Plan No acute need for renal replacement therapy at this time. HTN control on multiple meds. stopped lopressor as pt already on labetalol. Monitor Input/Output, daily weights and renal function with basic metabolic panel PRBC as needed. d/w heme and okay to use KAVYA from heme perspective. on weekly aransep supplement lytes as needed hold lasix. continue with IVF medical management of hyperkalemia as ordered repeat UA, urine Na/cr and renal sono Adrenal adenoma work up with plasma renin/aldosterone, plasma metanephrine NEG ATIVE. outpt 1 mg dexa suppression test repeat renal sono in 6 months to assess her Rt renal cyst Dose meds/antibiotics for reduced GFR. Avoid fleets enema/magnesium based laxatives. Avoid nephrotoxins/NSAIDs/ iodinated contrast (unless needed emergently) Glycemic control Further work up/management as per primary team Thanks for allowing me to participate in care of your patient. Will follow patient with you. Please call if any Qs. had d/w team Dr Dae Dawn Office: [phone] Chief Complaint;AMS Reason for consult: Acute Kidney Injury, CKD 3 HPI: Pt is a 62 F with hx of diabetes Mellitus (15 years), hypertension (years), CKD 3 with baseline cr 1.2-1.3 recently admitted after complicated abdominal surgery that represents w/ abdominal pain. Was recommended to get mesh removed last admission but refusing and still refusing per surgical service. She does not know why she is in the hospital. She denies n/v. She endorses reduced po intake. ROS: pt not able to provide Physical Examination: General Appearance: comfortable,morbidly obese. Vitals reviewed and noted as below Head; Atraumatic, normocephalic ENT: dry mucosa EYES: Pupils are equal, round and reactive to light accommodation. Eye muscles and extraocular movement intact. Sclera is anicteric. Neck; supple no lymphadenopathy, no thyromegaly or bruit Lungs: Normal respiratory rate/effort. Breath sounds bilateral equal, diminished at bases but overall limited exam due to her obesity Heart: normal rate. s1s2 normal. No rub or gallop. Extremities: 1+ edema, non pitting lymphedema as well. No varicose veins Neurological: Patient is sleepy today confused Skin: Warm and dry. Normal turgor. No rash. Palpitation: Normal elasticity for age Abdomen: Abdomen is + colostomy Psych: flat affect MSK: no joint tenderness or swelling. Digits and nails normal, no deformity : kidney or bladder not palpable Labs/imaging reviewed. Past medical history, past surgical history, family history, social history, allergy reviewed and noted as below Family hx: no hx of CKD. Rest non-contributory Objective - Vital Signs/Intake and Output Vital Signs (last 24 hours): Temp Pulse Resp BP Pulse Ox 97.5 F L 85 20 107/50 L 95 05/21/18 06:00 05/21/18 09:40 05/21/18 06:00 05/21/18 09:40 05/21/18 06:00 - Medications Medications: Current Medications Acetaminophen (Tylenol 325mg Tab) 650 mg PO Q4H PRN PRN Reason: Pain, Mild (1-3) Albuterol/Ipratropium (Duoneb 3 Mg/0.5 Mg (3 Ml) Ud) 3 ml IH [id number] [facility] Last Admin: 05/21/18 13:26 Dose: 3 ml Albuterol/Ipratropium (Duoneb 3 Mg/0.5 Mg (3 Ml) Ud) 3 ml IH Q2H PRN PRN Reason: Shortness of Breath Amlodipine Besylate (Norvasc) 10 mg PO DAILY [facility] Last Admin: 05/21/18 09:40 Dose: Not Given Apixaban (Eliquis) 2.5 mg PO BID [facility]; Protocol Last Admin: 05/21/18 09:29 Dose: 2.5 mg Arformoterol Tartrate (Brovana) 15 mcg IH [id number] [facility] Last Admin: 12/18/18 07:37 Dose: 15 mcg Aspirin (Ecotrin) 81 mg PO DAILY [facility] Last Admin: 05/21/18 09:29 Dose: 81 mg Atorvastatin Calcium (Lipitor) 20 mg PO HS [facility] Last Admin: 05/20/18 22:50 Dose: 20 mg Budesonide (Pulmicort Respules) 0.5 mg IH [id number] [facility] Last Admin: 05/21/18 07:37 Dose: 0.5 mg Clonidine HCl (Catapres-Tts3 0.3 Mg/24 Hr) 1 patch TD Q7D@1000 [facility] Last Admin: 05/18/18 11:06 Dose: 1 patch Darbepoetin Timothy (Aranesp) 150 mcg SC QWK [facility] Last Admin: 05/21/18 09:55 Dose: 150 mcg Docusate Sodium (Colace) 100 mg PO TID [facility] Last Admin: 05/21/18 14:08 Dose: Not Given Ergocalciferol (Drisdol 50,000 Intl Units Cap) 1 cap PO Q7D [facility] Last Admin: 05/18/18 23:00 Dose: Not Given Ferrous Gluconate (Fergon) 324 mg PO DAILY [facility] Last Admin: 05/21/18 09:31 Dose: 324 mg Fluconazole (Diflucan) 100 mg PO DAILY [facility]; Protocol Stop: 05/28/18 10:01 Last Admin: 05/21/18 09:31 Dose: 100 mg Hydralazine HCl (Apresoline) 100 mg PO TID [facility] Last Admin: 05/21/18 14:08 Dose: Not Given Hydromorphone HCl (Dilaudid) 2 mg IVP Q4H PRN PRN Reason: Pain, severe (8-10) Last Admin: 05/21/18 05:21 Dose: 2 mg Sodium Chloride (Sodium Chloride 0.45%) 1,000 mls @ 100 mls/hr IV .Q10H [facility] Last Admin: 05/21/18 09:41 Dose: 100 mls/hr Cefepime HCl (Maxipime 1gm) 1 gm in 100 mls @ 100 mls/hr IVPB DAILY [facility]; Protocol Last Admin: 05/21/18 13:59 Dose: 100 mls/hr Insulin Detemir (Levemir) 20 unit SC [facility] Last Admin: 05/20/18 22:52 Dose: 20 units Insulin Human Regular (Humulin R Low) 0 units SC [facility]; Protocol Last Admin: 05/21/18 11:46 Dose: Not Given Isosorbide Mononitrate (Imdur) 60 mg PO DAILY [facility] Last Admin: 05/21/18 09:40 Dose: Not Given Labetalol HCl (Trandate) 300 mg PO Q8 [facility] Last Admin: 05/21/18 14:09 Dose: Not Given Levothyroxine Sodium (Synthroid) 50 mcg PO 0600 [facility] Last Admin: 05/21/18 05:55 Dose: 50 mcg Magnesium Oxide (Mag-Ox) 400 mg PO BID [facility] Last Admin: 05/21/18 09:45 Dose: 400 mg Metoclopramide HCl (Reglan) 5 mg PO [facility] Last Admin: 05/21/18 11:46 Dose: Not Given Nifedipine (Procardia Xl) 60 mg PO QPM [facility] Last Admin: 05/20/18 18:33 Dose: 60 mg Nystatin (Nystop Topical Powder) 0 gm TOP TID [facility] Last Admin: 05/21/18 14:09 Dose: 1 applic Ondansetron HCl (Zofran Inj) 4 mg IVP Q4H PRN PRN Reason: Nausea/Vomiting Pantoprazole Sodium (Protonix Ec Tab) 20 mg PO ACB [facility] Last Admin: 05/21/18 07:59 Dose: Not Given Pregabalin (Lyrica) 50 mg PO BID [facility] Last Admin: 05/21/18 09:40 Dose: Not Given Saliva Substitute (Saliva Substitute) 0 ml PO 5XD PRN PRN Reason: DRY MOUTH Silver Sulfadiazine (Silvadene 1% 25 Gm) 0 gm TP BID [facility] Last Admin: 05/21/18 09:41 Dose: 1 gm Simethicone (Mylicon Chew Tab) 80 mg PO PCHS PRN PRN Reason: GI distress Vitamin B Complex/Vit C/Folic Acid (Nephro-Holland) 1 tab PO 0800 [facility] Last Admin: 05/21/18 07:58 Dose: Not Given - Labs Labs: 05/21/18 06:20 05/21/18 06:20 PT 15.0 SECONDS (9.4-12.5) H 05/11/18 13:45 INR 1.30 05/11/18 13:45 APTT 20.4 Seconds (25.1-36.5) L 05/11/18 13:45
--- NOTE | 2018-05-21 14:38 | CP.PCM.PN ---
Subjective - Date & Time of Evaluation Date of Evaluation: 05/21/18 Time of Evaluation: 08:15 - Subjective Subjective: Comfortable, no fevers, not in distress, Objective - Vital Signs/Intake and Output Vital Signs (last 24 hours): Temp Pulse Resp BP Pulse Ox 97.5 F L 85 20 107/50 L 95 05/21/18 06:00 05/21/18 09:40 05/21/18 06:00 05/21/18 09:40 05/21/18 06:00 - Medications Medications: Current Medications Acetaminophen (Tylenol 325mg Tab) 650 mg PO Q4H PRN PRN Reason: Pain, Mild (1-3) Albuterol/Ipratropium (Duoneb 3 Mg/0.5 Mg (3 Ml) Ud) 3 ml IH [id number] [facility] Last Admin: 05/21/18 13:26 Dose: 3 ml Albuterol/Ipratropium (Duoneb 3 Mg/0.5 Mg (3 Ml) Ud) 3 ml IH Q2H PRN PRN Reason: Shortness of Breath Amlodipine Besylate (Norvasc) 10 mg PO DAILY [facility] Last Admin: 05/21/18 09:40 Dose: Not Given Apixaban (Eliquis) 2.5 mg PO BID [facility]; Protocol Last Admin: 05/21/18 09:29 Dose: 2.5 mg Arformoterol Tartrate (Brovana) 15 mcg IH [id number] [facility] Last Admin: 05/21/18 07:37 Dose: 15 mcg Aspirin (Ecotrin) 81 mg PO DAILY [facility] Last Admin: 05/21/18 09:29 Dose: 81 mg Atorvastatin Calcium (Lipitor) 20 mg PO HS [facility] Last Admin: 05/20/18 22:50 Dose: 20 mg Budesonide (Pulmicort Respules) 0.5 mg IH [id number] [facility] Last Admin: 05/21/18 07:37 Dose: 0.5 mg Clonidine HCl (Catapres-Tts3 0.3 Mg/24 Hr) 1 patch TD Q7D@1000 [facility] Last Admin: 05/18/18 11:06 Dose: 1 patch Darbepoetin Timothy (Aranesp) 150 mcg SC QWK [facility] Last Admin: 05/21/18 09:55 Dose: 150 mcg Docusate Sodium (Colace) 100 mg PO TID [facility] Last Admin: 05/21/18 14:08 Dose: Not Given Ergocalciferol (Drisdol 50,000 Intl Units Cap) 1 cap PO Q7D [facility] Last Admin: 05/18/18 23:00 Dose: Not Given Ferrous Gluconate (Fergon) 324 mg PO DAILY [facility] Last Admin: 05/21/18 09:31 Dose: 324 mg Fluconazole (Diflucan) 100 mg PO DAILY [facility]; Protocol Stop: 05/28/18 10:01 Last Admin: 05/21/18 09:31 Dose: 100 mg Hydralazine HCl (Apresoline) 100 mg PO TID [facility] Last Admin: 05/21/18 14:08 Dose: Not Given Hydromorphone HCl (Dilaudid) 2 mg IVP Q4H PRN PRN Reason: Pain, severe (8-10) Last Admin: 05/21/18 05:21 Dose: 2 mg Sodium Chloride (Sodium Chloride 0.45%) 1,000 mls @ 100 mls/hr IV .Q10H [facility] Last Admin: 05/21/18 09:41 Dose: 100 mls/hr Cefepime HCl (Maxipime 1gm) 1 gm in 100 mls @ 100 mls/hr IVPB DAILY [facility]; Protocol Last Admin: 05/21/18 13:59 Dose: 100 mls/hr Insulin Detemir (Levemir) 20 unit SC [facility] Last Admin: 05/20/18 22:52 Dose: 20 units Insulin Human Regular (Humulin R Low) 0 units SC [facility]; Protocol Last Admin: 05/21/18 11:46 Dose: Not Given Isosorbide Mononitrate (Imdur) 60 mg PO DAILY [facility] Last Admin: 05/21/18 09:40 Dose: Not Given Labetalol HCl (Trandate) 300 mg PO Q8 [facility] Last Admin: 05/21/18 14:09 Dose: Not Given Levothyroxine Sodium (Synthroid) 50 mcg PO 0600 [facility] Last Admin: 05/21/18 05:55 Dose: 50 mcg Magnesium Oxide (Mag-Ox) 400 mg PO BID [facility] Last Admin: 05/21/18 09:45 Dose: 400 mg Metoclopramide HCl (Reglan) 5 mg PO [facility] Last Admin: 05/21/18 11:46 Dose: Not Given Nifedipine (Procardia Xl) 60 mg PO QPM [facility] Last Admin: 05/20/18 18:33 Dose: 60 mg Nystatin (Nystop Topical Powder) 0 gm TOP TID [facility] Last Admin: 05/21/18 14:09 Dose: 1 applic Ondansetron HCl (Zofran Inj) 4 mg IVP Q4H PRN PRN Reason: Nausea/Vomiting Pantoprazole Sodium (Protonix Ec Tab) 20 mg PO ACB [facility] Last Admin: 05/21/18 07:59 Dose: Not Given Pregabalin (Lyrica) 50 mg PO BID [facility] Last Admin: 05/21/18 09:40 Dose: Not Given Saliva Substitute (Saliva Substitute) 0 ml PO 5XD PRN PRN Reason: DRY MOUTH Silver Sulfadiazine (Silvadene 1% 25 Gm) 0 gm TP BID [facility] Last Admin: 05/21/18 09:41 Dose: 1 gm Simethicone (Mylicon Chew Tab) 80 mg PO PCHS PRN PRN Reason: GI distress Vitamin B Complex/Vit C/Folic Acid (Nephro-Holland) 1 tab PO 0800 [facility] Last Admin: 05/21/18 07:58 Dose: Not Given - Labs Labs: 05/21/18 06:20 05/21/18 06:20 PT 15.0 SECONDS (9.4-12.5) H 05/11/18 13:45 INR 1.30 05/11/18 13:45 APTT 20.4 Seconds (25.1-36.5) L 05/11/18 13:45 - Constitutional Appears: Chronically Ill - Head Exam Head Exam: NORMAL INSPECTION - Respiratory Exam Respiratory Exam: Decreased Breath Sounds - Cardiovascular Exam Cardiovascular Exam: +S1, +S2 - GI/Abdominal Exam GI & Abdominal Exam: Soft. absent: Tenderness Assessment and Plan - Assessment and Plan (Free Text) Plan: Assessment abdominal wall cellulitis with probable infected abdominal mesh; most recent cultures from 05/03/2018 showed Pseudomonas and C. famata S/P small bowel obstruction in this patient with ventral wall hernia, S/P ventral incarcerated hernia repair, adhesiolysis and revision of colostomy S/P acute coronary syndrome with NSTEMI COPD history of VRE UTI history of severe sepsis secondary to left medial thigh abscess, growing Proteus, S/P incision and drainage DM HTN CAD Unresectable rectal cancer S/P chemotherapy and radiation therapy S/P colostomy S/P Port-a-cath placement morbid obesity with BMI 50 obstructive sleep apnea history of pulmonary embolism S/P IVC filter placement Plan on Cefepime and Diflucan (day 9) - can switch Mycamine to Diflucan since repeat abdominal wound cx are showing C. albicans; follow up further plans of surgery, but apparently the patient has been refusing to have the mesh removed as per other doctors - discussed with Dr. Florian
[2018-05-21] MEDS: NIFEdipine 60 mg ER Tab PO SCH (17:12)
[2018-05-21] MEDS ORDERED: Sod Polystyrene Sulf 15 gm/60 ml Susp PR ONE (17:32)
--- NOTE | 2018-05-21 21:32 | PN ---
DATE: 05/21/2018 REASON FOR CONSULTATION: Cardiac evaluation, history of congestive heart failure, [facility]. This note is in addition to dictated by our nurse practitioner, Tiffanie Osborne. Hemoglobin 8.7. Today potassium is 5.8, creatinine is 3. RECOMMENDATIONS: We will give Kayexalate 30 g p.o. and we will give gentle hydration. Probably, the patient is not element of prerenal as well as some element of renal insufficiency as well. History of CAD. History of recent small bowel obstruction, status post surgery. Overall, the patient's condition is critical. Long-term prognosis is extremely guarded. We will follow with you. Thank you, Dr. Florian, for providing us the opportunity in taking care of the patient, Pedro Guevara. Overall, the patient's condition is critical. Prognosis is guarded. Pamela Guerrero MD
[2018-05-21] MEDS: Insulin Detemir 100 units/ml Vial (Levemir) SC SCH (23:06)
[2018-05-22] MEDS: Albuterol-Ipratrop 3 mg / 0.5 (3 ml) UD IH SCH ×4 (01:15→20:31)
[2018-05-22 05:54] LABS: BASO # 0.04 K/mm3 (0.0-2.0); BASO % 0.6 % (0.0-3.0); EOS # 0.3 (0.0-0.7); EOS % 4.2 % (1.5-5.0); GRAN # 3.68 (1.4-6.5); HEMOGLOBIN 8.1 g/dL (12.0-16.0); LYMPH # 2.1 (1.2-3.4); LYMPH % 31.4 % (22.0-35.0); MEAN CORPUSCULAR HEMOGLOBIN 28.3 pg (25.0-35.0); MEAN CORPUSCULAR HGB CONC 30.7 g/dl (31.0-37.0); MEAN PLATELET VOLUME 9.3 fl (7.0-11.0); MONO # 0.6 (0.1-0.6); MONO % 8.8 % (1.0-6.0); RBC 2.86 10^6/uL (3.5-6.1); RED CELL DISTRIBUTION WIDTH 18.9 % (11.5-14.5); WHITE BLOOD COUNT 6.7 10^3/uL (4.5-11.0)
[2018-05-22 06:27] LABS: ALB/GLOB RATIO 0.6 (1.1-1.8); ALBUMIN 2.3 g/dL (3.0-4.8); CALCIUM 7.5 mg/dL (8.4-10.5)
[2018-05-22 06:34] LABS: MEAN CELL VOLUME 92.3 fl (80.0-105.0)
[2018-05-22] MEDS: Levothyroxine 50 MCG TAB PO SCH (06:37)
--- NOTE | 2018-05-22 06:55 | CP.PCM.PN ---
Subjective - Date & Time of Evaluation Date of Evaluation: 05/22/18 Time of Evaluation: 06:25 - Subjective Subjective: Lying in bed, comfortable, in use of BIPAP/CPAP Reason for consultation and follow up: Cardiac evaluation of history of congestive heart failure, transferred from [facility] due to lethargy Seen and examined by me and Dr. Guerrero Objective - Vital Signs/Intake and Output Vital Signs (last 24 hours): Temp Pulse Resp BP Pulse Ox 100.4 F H 84 20 112/54 L 96 05/21/18 23:31 05/22/18 06:37 05/21/18 23:31 05/22/18 06:37 05/21/18 23:31 Intake and Output: 05/21/18 05/22/18 18:59 06:59 Intake Total 120 Output Total 270 Balance -150 - Medications Medications: Current Medications Acetaminophen (Tylenol 325mg Tab) 650 mg PO Q4H PRN PRN Reason: Pain, Mild (1-3) Albuterol/Ipratropium (Duoneb 3 Mg/0.5 Mg (3 Ml) Ud) 3 ml IH [id number] [facility] Last Admin: 05/22/18 01:15 Dose: 3 ml Albuterol/Ipratropium (Duoneb 3 Mg/0.5 Mg (3 Ml) Ud) 3 ml IH Q2H PRN PRN Reason: Shortness of Breath Amlodipine Besylate (Norvasc) 10 mg PO DAILY [facility] Last Admin: 05/21/18 09:40 Dose: Not Given Apixaban (Eliquis) 2.5 mg PO BID [facility]; Protocol Last Admin: 05/21/18 17:09 Dose: 2.5 mg Arformoterol Tartrate (Brovana) 15 mcg IH [id number] [facility] Last Admin: 05/21/18 20:08 Dose: 15 mcg Aspirin (Ecotrin) 81 mg PO DAILY [facility] Last Admin: 05/21/18 09:29 Dose: 81 mg Atorvastatin Calcium (Lipitor) 20 mg PO HS [facility] Last Admin: 05/21/18 23:03 Dose: 20 mg Budesonide (Pulmicort Respules) 0.5 mg IH [id number] [facility] Last Admin: 05/21/18 20:09 Dose: 0.5 mg Clonazepam (Klonopin) 0.5 mg PO BID PRN; Protocol PRN Reason: Anxiety Last Admin: 05/21/18 17:56 Dose: 0.5 mg Clonidine HCl (Catapres-Tts3 0.3 Mg/24 Hr) 1 patch TD Q7D@1000 [facility] Last Admin: 05/18/18 11:06 Dose: 1 patch Darbepoetin Timothy (Aranesp) 150 mcg SC QWK [facility] Last Admin: 05/21/18 09:55 Dose: 150 mcg Docusate Sodium (Colace) 100 mg PO TID [facility] Last Admin: 05/21/18 17:09 Dose: Not Given Ergocalciferol (Drisdol 50,000 Intl Units Cap) 1 cap PO Q7D [facility] Last Admin: 05/18/18 23:00 Dose: Not Given Ferrous Gluconate (Fergon) 324 mg PO DAILY [facility] Last Admin: 05/21/18 09:31 Dose: 324 mg Fluconazole (Diflucan) 100 mg PO DAILY [facility]; Protocol Stop: 05/28/18 10:01 Last Admin: 05/21/18 09:31 Dose: 100 mg Hydralazine HCl (Apresoline) 100 mg PO TID [facility] Last Admin: 05/21/18 17:12 Dose: Not Given Sodium Chloride (Sodium Chloride 0.45%) 1,000 mls @ 100 mls/hr IV .Q10H [facility] Last Admin: 05/21/18 09:41 Dose: 100 mls/hr Cefepime HCl (Maxipime 1gm) 1 gm in 100 mls @ 100 mls/hr IVPB DAILY [facility]; Protocol Last Admin: 05/21/18 13:59 Dose: 100 mls/hr Insulin Detemir (Levemir) 20 unit SC HS [facility] Last Admin: 05/21/18 23:06 Dose: 20 units Insulin Human Regular (Humulin R Low) 0 units SC ACHS [facility]; Protocol Last Admin: 05/21/18 22:21 Dose: Not Given Isosorbide Mononitrate (Imdur) 60 mg PO DAILY [facility] Last Admin: 05/21/18 09:40 Dose: Not Given Labetalol HCl (Trandate) 300 mg PO Q8 [facility] Last Admin: 05/22/18 06:37 Dose: 300 mg Levothyroxine Sodium (Synthroid) 50 mcg PO 0600 [facility] Last Admin: 05/22/18 06:37 Dose: 50 mcg Magnesium Oxide (Mag-Ox) 400 mg PO BID [facility] Last Admin: 05/21/18 17:09 Dose: 400 mg Nifedipine (Procardia Xl) 60 mg PO QPM [facility] Last Admin: 05/21/18 17:12 Dose: Not Given Nystatin (Nystop Topical Powder) 0 gm TOP TID [facility] Last Admin: 05/21/18 17:10 Dose: 1 applic Ondansetron HCl (Zofran Inj) 4 mg IVP Q4H PRN PRN Reason: Nausea/Vomiting Pantoprazole Sodium (Protonix Ec Tab) 20 mg PO ACB [facility] Last Admin: 05/21/18 07:59 Dose: Not Given Pregabalin (Lyrica) 50 mg PO BID [facility] Last Admin: 05/21/18 17:09 Dose: 50 mg Saliva Substitute (Saliva Substitute) 0 ml PO 5XD PRN PRN Reason: DRY MOUTH Silver Sulfadiazine (Silvadene 1% 25 Gm) 0 gm TP BID [facility] Last Admin: 05/21/18 17:10 Dose: 1 gm Simethicone (Mylicon Chew Tab) 80 mg PO PCHS PRN PRN Reason: GI distress Vitamin B Complex/Vit C/Folic Acid (Nephro-Holland) 1 tab PO 0800 [facility] Last Admin: 05/21/18 07:58 Dose: Not Given - Labs Labs: 05/22/18 05:15 05/22/18 05:15 PT 15.0 SECONDS (9.4-12.5) H 05/11/18 13:45 INR 1.30 05/11/18 13:45 APTT 20.4 Seconds (25.1-36.5) L 05/11/18 13:45 - Constitutional Appears: Non-toxic, No Acute Distress - Head Exam Head Exam: NORMAL INSPECTION, NORMOCEPHALIC - ENT Exam ENT Exam: Mucous Membranes Dry - Respiratory Exam Respiratory Exam: Decreased Breath Sounds, NORMAL BREATHING PATTERN - Cardiovascular Exam Cardiovascular Exam: +S1, +S2 - GI/Abdominal Exam GI & Abdominal Exam: Soft, Normal Bowel Sounds Additional comments: colostomy - Extremities Exam Additional comments: 3-4+edema - Neurological Exam Neurological Exam: Alert, Awake - Psychiatric Exam Psychiatric exam: Normal Affect, Normal Mood - Skin Skin Exam: Dry, Normal Color, Warm Assessment and Plan - Assessment and Plan (Free Text) Assessment: A 62 year old morbidly obese female who got transferred to [facility] due to altered mental status. Patient is known to service from previous multiple admissions. History of coronary artery disease with stent of circumflex,hypertension,hyperlipidemia,diabetes,sleep apnea,COPD, congestive heart failure, DVT/PE. History of bowel resection in the past with colostomy. She was admitted to [facility] due to small bowel obstruction and on 04/16/18 she had explor-lap and lysis of adhesions and ventral hernia repair with revision of col ostomy (Dr. Mckeon).Postoperatively, patient had infection involving th mesh placed for the hernia repair and it was recommended that she undergo an additional procedure to have the mesh removed however patient refused surgical procedure. She was stablized and transferred to [facility]. Chest X ray showed severe cardiomegaly,moderate to severe pulmonary congestion.Not in respiratory distress, On nasal cannula 4l/min. Troponin 0.14/.15, denies chest pain, EKG- normal sinus rhythm, elevated due to renal insuffiency. Will treat medically. Surgical follow up for abdominal wound. Symptoms clinically improved. Cardiac status stable.Repeat Chest X ray from last Sunday showed improved vascular con gestion. Accepted to [facility] rehab. Transferred held to [facility] due to hyperkalemia. Plan: Hyperkalemia yesterday, Kayexalate given K level today 5.0 Continue IV hydration of NSS at 100 cc/hr. Cardiac status stable No distress, Denies chest pain Heart rate controlled Blood pressure controlled On Norvasc 10 mg daily, Eliquis 2.5 mg BID, ASA 81 mg daily, Lipitor 20 mg daily,Clonidine patch weekly,Lasix 40 mg daily, Labetolol 300 mg every 8 hours, Nifedipine 60 mg daily, Imdur 60 mg daily Continue current treatment Continue current medications Controlled glucose Will follow up Plan and treatment discussed with Dr. Guerrero
[2018-05-22] MEDS: Insulin Reg-LOW-Coverage SC SCH ×3 (07:30→18:13)
[2018-05-22] MEDS: Arformoterol 15 mcg/2 ml Inh Sol IH SCH ×2 (08:34→20:30)
[2018-05-22] MEDS: Budesonide 0.5 mg/2 ml Inhal Susp UD IH SCH ×2 (08:34→20:31)
--- NOTE | 2018-05-22 09:47 | CT ---
Date of service: 05/22/2018 PROCEDURE: CT HEAD WITHOUT CONTRAST. HISTORY: change in mental status COMPARISON: None available. TECHNIQUE: Axial computed tomography images were obtained through the head/brain without intravenous contrast. Radiation dose: Total exam DLP = 925.49 mGy-cm. This CT exam was performed using one or more of the following dose reduction techniques: Automated exposure control, adjustment of the mA and/or kV according to patient size, and/or use of iterative reconstruction technique. FINDINGS: HEMORRHAGE: No intracranial hemorrhage. BRAIN: No mass effect or edema. Mild periventricular white matter hypodensity likely secondary to chronic microvascular disease. VENTRICLES: Unremarkable. No hydrocephalus. CALVARIUM: Unremarkable. PARANASAL SINUSES: Unremarkable as visualized. No significant inflammatory changes. MASTOID AIR CELLS: Unremarkable as visualized. No inflammatory changes. OTHER FINDINGS: None. IMPRESSION: No acute hemorrhage.
[2018-05-22] MEDS: Silver Sulfadiazine 1% Cream (25 gm) TP SCH ×2 (10:00→18:14)
[2018-05-22] MEDS: Nystatin 100,000 Units/gm Topical Pow(15 gm) TOP SCH ×3 (10:00→18:14)
[2018-05-22] MEDS: Magnesium Oxide 400 mg Tab UD PO SCH ×2 (12:13→18:13)
[2018-05-22] MEDS: Multivitamin Vitamin B Complex (Nephro-Vite) Tab PO SCH (12:13)
[2018-05-22] MEDS: Pantoprazole 20 mg EC Tab PO SCH (12:13)
[2018-05-22] MEDS: Cefepime 1gm in NS 100ml 1 GM/100 ML BAG IVPB SCH (12:15)
--- NOTE | 2018-05-22 12:31 | CP.PCM.APN ---
Subjective - Date & Time of Evaluation Date of Evaluation: 05/22/18 Time of Evaluation: 12:25 - Subjective Subjective: pt seen at bedside, pt screaming and speaking in tamazight when questioned does not respond to questions Pt in NAD Review of Systems - Review of Systems Review of Systems: pt does not answer questions when asked Objective - Vital Signs/Intake and Output Vital Signs (last 24 hours): Temp Pulse Resp BP Pulse Ox 99 F 84 24 122/54 L 95 05/22/18 06:00 05/22/18 06:37 05/22/18 06:00 05/22/18 12:12 05/22/18 06:00 Intake and Output: 05/22/18 05/22/18 06:59 18:59 Intake Total 120 Output Total 270 Balance -150 - Medications Medications: Current Medications Acetaminophen (Tylenol 325mg Tab) 650 mg PO Q4H PRN PRN Reason: Pain, Mild (1-3) Albuterol/Ipratropium (Duoneb 3 Mg/0.5 Mg (3 Ml) Ud) 3 ml IH [id number] [facility] Last Admin: 05/22/18 08:34 Dose: 3 ml Albuterol/Ipratropium (Duoneb 3 Mg/0.5 Mg (3 Ml) Ud) 3 ml IH Q2H PRN PRN Reason: Shortness of Breath Amlodipine Besylate (Norvasc) 10 mg PO DAILY [facility] Last Admin: 05/21/18 09:40 Dose: Not Given Apixaban (Eliquis) 2.5 mg PO BID [facility]; Protocol Last Admin: 05/22/18 12:13 Dose: 2.5 mg Arformoterol Tartrate (Brovana) 15 mcg IH [id number] [facility] Last Admin: 05/22/18 08:34 Dose: 15 mcg Aspirin (Ecotrin) 81 mg PO DAILY [facility] Last Admin: 05/22/18 12:14 Dose: 81 mg Atorvastatin Calcium (Lipitor) 20 mg PO HS [facility] Last Admin: 05/21/18 23:03 Dose: 20 mg Budesonide (Pulmicort Respules) 0.5 mg IH [id number] [facility] Last Admin: 05/22/18 08:34 Dose: 0.5 mg Clonazepam (Klonopin) 0.5 mg PO BID PRN; Protocol PRN Reason: Anxiety Last Admin: 05/22/18 12:13 Dose: 0.5 mg Clonidine HCl (Catapres-Tts3 0.3 Mg/24 Hr) 1 patch TD Q7D@1000 [facility] Last Admin: 05/18/18 11:06 Dose: 1 patch Darbepoetin Timothy (Aranesp) 150 mcg SC QWK [facility] Last Admin: 05/21/18 09:55 Dose: 150 mcg Docusate Sodium (Colace) 100 mg PO TID [facility] Last Admin: 05/22/18 12:14 Dose: 100 mg Ergocalciferol (Drisdol 50,000 Intl Units Cap) 1 cap PO Q7D [facility] Last Admin: 05/18/18 23:00 Dose: Not Given Ferrous Gluconate (Fergon) 324 mg PO DAILY [facility] Last Admin: 05/22/18 12:14 Dose: 324 mg Fluconazole (Diflucan) 100 mg PO DAILY [facility]; Protocol Stop: 05/28/18 10:01 Last Admin: 05/22/18 12:14 Dose: 100 mg Hydralazine HCl (Apresoline) 100 mg PO TID [facility] Last Admin: 05/22/18 12:12 Dose: Not Given Sodium Chloride (Sodium Chloride 0.45%) 1,000 mls @ 100 mls/hr IV .Q10H [facility] Last Admin: 05/21/18 09:41 Dose: 100 mls/hr Cefepime HCl (Maxipime 1gm) 1 gm in 100 mls @ 100 mls/hr IVPB DAILY [facility]; Protocol Last Admin: 05/22/18 12:15 Dose: 100 mls/hr Insulin Detemir (Levemir) 20 unit SC HS [facility] Last Admin: 05/21/18 23:06 Dose: 20 units Insulin Human Regular (Humulin R Low) 0 units SC ACHS [facility]; Protocol Last Admin: 05/21/18 22:21 Dose: Not Given Isosorbide Mononitrate (Imdur) 60 mg PO DAILY [facility] Last Admin: 05/22/18 12:14 Dose: 60 mg Labetalol HCl (Trandate) 300 mg PO Q8 [facility] Last Admin: 05/22/18 06:37 Dose: 300 mg Levothyroxine Sodium (Synthroid) 50 mcg PO 0600 [facility] Last Admin: 05/22/18 06:37 Dose: 50 mcg Magnesium Oxide (Mag-Ox) 400 mg PO BID [facility] Last Admin: 05/22/18 12:13 Dose: 400 mg Nifedipine (Procardia Xl) 60 mg PO QPM [facility] Last Admin: 05/21/18 17:12 Dose: Not Given Nystatin (Nystop Topical Powder) 0 gm TOP TID [facility] Last Admin: 05/21/18 17:10 Dose: 1 applic Ondansetron HCl (Zofran Inj) 4 mg IVP Q4H PRN PRN Reason: Nausea/Vomiting Pantoprazole Sodium (Protonix Ec Tab) 20 mg PO ACB [facility] Last Admin: 05/22/18 12:13 Dose: 20 mg Pregabalin (Lyrica) 50 mg PO BID [facility] Last Admin: 05/22/18 12:14 Dose: 50 mg Risperidone (Risperdal Tab) 0.5 mg PO HS [facility]; Protocol Saliva Substitute (Saliva Substitute) 0 ml PO 5XD PRN PRN Reason: DRY MOUTH Silver Sulfadiazine (Silvadene 1% 25 Gm) 0 gm TP BID [facility] Last Admin: 05/21/18 17:10 Dose: 1 gm Simethicone (Mylicon Chew Tab) 80 mg PO PCHS PRN PRN Reason: GI distress Vitamin B Complex/Vit C/Folic Acid (Nephro-Holland) 1 tab PO 0800 [facility] Last Admin: 05/22/18 12:13 Dose: 1 tab - Labs Labs: 05/22/18 05:15 05/22/18 05:15 PT 15.0 SECONDS (9.4-12.5) H 05/11/18 13:45 INR 1.30 05/11/18 13:45 APTT 20.4 Seconds (25.1-36.5) L 05/11/18 13:45 - Constitutional Appears: Non-toxic, No Acute Distress - Head Exam Head Exam: NORMAL INSPECTION, NORMOCEPHALIC - Respiratory Exam Respiratory Exam: NORMAL BREATHING PATTERN - Cardiovascular Exam Cardiovascular Exam: +S1, +S2 - GI/Abdominal Exam GI & Abdominal Exam: Soft (obese, sot, nontender, colostomy in place, multiple abd dressings intact ) - Extremities Exam Extremities Exam: Normal Capillary Refill - Neurological Exam Neurological Exam: Alert, Awake - Skin Skin Exam: Dry, Intact, Warm Assessment and Plan - Assessment and Plan (Free Text) Plan: A/P 62 yr old female with pmh sig for htn, hld, unresectable colon ca sbo s/p abd surgery 04/14/18 with probable infection involving the mesh placed during the surgery now brought to the Er from [facility] for lethargy and fever now being evaluated by ID for abd wall cellulitis with recent cultures may 03 showing pseudomons and c. famata, with additional abdominal wound and UC showing yeast species/ megan albicans per discussion with ID medications were changed to p.o. diflucan 100mg x 7 days and iv maxipime x 7 days as recommended renal notes rev'd , K improved at 5.0 today in setting of CKD 3 plan of care discussed with cm and sw - for [facility] call placed to PMD re: plan of care, awaiting followup will continue to follow. -
--- NOTE | 2018-05-22 13:26 | CP.PCM.PN ---
Subjective - Date & Time of Evaluation Date of Evaluation: 05/22/18 Time of Evaluation: 08:50 - Subjective Subjective: Comfortable but at times agitated, no fevers. Objective - Vital Signs/Intake and Output Vital Signs (last 24 hours): Temp Pulse Resp BP Pulse Ox 99 F 84 24 122/54 L 95 05/22/18 06:00 05/22/18 06:37 05/22/18 06:00 05/22/18 12:12 05/22/18 06:00 Intake and Output: 05/22/18 05/22/18 06:59 18:59 Intake Total 120 Output Total 270 Balance -150 - Medications Medications: Current Medications Acetaminophen (Tylenol 325mg Tab) 650 mg PO Q4H PRN PRN Reason: Pain, Mild (1-3) Albuterol/Ipratropium (Duoneb 3 Mg/0.5 Mg (3 Ml) Ud) 3 ml IH [id number] [facility] Last Admin: 05/22/18 08:34 Dose: 3 ml Albuterol/Ipratropium (Duoneb 3 Mg/0.5 Mg (3 Ml) Ud) 3 ml IH Q2H PRN PRN Reason: Shortness of Breath Amlodipine Besylate (Norvasc) 10 mg PO DAILY [facility] Last Admin: 05/21/18 09:40 Dose: Not Given Apixaban (Eliquis) 2.5 mg PO BID [facility]; Protocol Last Admin: 05/22/18 12:13 Dose: 2.5 mg Arformoterol Tartrate (Brovana) 15 mcg IH [id number] [facility] Last Admin: 05/22/18 08:34 Dose: 15 mcg Aspirin (Ecotrin) 81 mg PO DAILY [facility] Last Admin: 05/22/18 12:14 Dose: 81 mg Atorvastatin Calcium (Lipitor) 20 mg PO HS [facility] Last Admin: 05/21/18 23:03 Dose: 20 mg Budesonide (Pulmicort Respules) 0.5 mg IH [id number] [facility] Last Admin: 05/22/18 08:34 Dose: 0.5 mg Clonazepam (Klonopin) 0.5 mg PO BID PRN; Protocol PRN Reason: Anxiety Last Admin: 05/22/18 12:13 Dose: 0.5 mg Clonidine HCl (Catapres-Tts3 0.3 Mg/24 Hr) 1 patch TD Q7D@1000 [facility] Last Admin: 05/18/18 11:06 Dose: 1 patch Darbepoetin Timothy (Aranesp) 150 mcg SC QWK [facility] Last Admin: 05/21/18 09:55 Dose: 150 mcg Docusate Sodium (Colace) 100 mg PO TID [facility] Last Admin: 05/22/18 12:14 Dose: 100 mg Ergocalciferol (Drisdol 50,000 Intl Units Cap) 1 cap PO Q7D [facility] Last Admin: 05/18/18 23:00 Dose: Not Given Ferrous Gluconate (Fergon) 324 mg PO DAILY [facility] Last Admin: 05/22/18 12:14 Dose: 324 mg Fluconazole (Diflucan) 100 mg PO DAILY [facility]; Protocol Stop: 05/28/18 10:01 Last Admin: 05/22/18 12:14 Dose: 100 mg Hydralazine HCl (Apresoline) 100 mg PO TID [facility] Last Admin: 05/22/18 12:12 Dose: Not Given Sodium Chloride (Sodium Chloride 0.45%) 1,000 mls @ 100 mls/hr IV .Q10H [facility] Last Admin: 05/21/18 09:41 Dose: 100 mls/hr Cefepime HCl (Maxipime 1gm) 1 gm in 100 mls @ 100 mls/hr IVPB DAILY [facility]; Protocol Last Admin: 05/22/18 12:15 Dose: 100 mls/hr Insulin Detemir (Levemir) 20 unit SC HS [facility] Last Admin: 05/21/18 23:06 Dose: 20 units Insulin Human Regular (Humulin R Low) 0 units SC ACHS [facility]; Protocol Last Admin: 05/21/18 22:21 Dose: Not Given Isosorbide Mononitrate (Imdur) 60 mg PO DAILY [facility] Last Admin: 05/22/18 12:14 Dose: 60 mg Labetalol HCl (Trandate) 300 mg PO Q8 [facility] Last Admin: 05/22/18 06:37 Dose: 300 mg Levothyroxine Sodium (Synthroid) 50 mcg PO 0600 [facility] Last Admin: 05/22/18 06:37 Dose: 50 mcg Magnesium Oxide (Mag-Ox) 400 mg PO BID [facility] Last Admin: 05/22/18 12:13 Dose: 400 mg Nifedipine (Procardia Xl) 60 mg PO QPM [facility] Last Admin: 05/21/18 17:12 Dose: Not Given Nystatin (Nystop Topical Powder) 0 gm TOP TID [facility] Last Admin: 05/21/18 17:10 Dose: 1 applic Ondansetron HCl (Zofran Inj) 4 mg IVP Q4H PRN PRN Reason: Nausea/Vomiting Pantoprazole Sodium (Protonix Ec Tab) 20 mg PO ACB [facility] Last Admin: 05/22/18 12:13 Dose: 20 mg Pregabalin (Lyrica) 50 mg PO BID [facility] Last Admin: 05/22/18 12:14 Dose: 50 mg Risperidone (Risperdal Tab) 0.5 mg PO HS [facility]; Protocol Saliva Substitute (Saliva Substitute) 0 ml PO 5XD PRN PRN Reason: DRY MOUTH Silver Sulfadiazine (Silvadene 1% 25 Gm) 0 gm TP BID [facility] Last Admin: 05/21/18 17:10 Dose: 1 gm Simethicone (Mylicon Chew Tab) 80 mg PO PCHS PRN PRN Reason: GI distress Vitamin B Complex/Vit C/Folic Acid (Nephro-Holland) 1 tab PO 0800 [facility] Last Admin: 05/22/18 12:13 Dose: 1 tab - Labs Labs: 05/22/18 05:15 05/22/18 05:15 PT 15.0 SECONDS (9.4-12.5) H 05/11/18 13:45 INR 1.30 05/11/18 13:45 APTT 20.4 Seconds (25.1-36.5) L 05/11/18 13:45 - Constitutional Appears: Chronically Ill - Head Exam Head Exam: NORMAL INSPECTION - Respiratory Exam Respiratory Exam: Decreased Breath Sounds - Cardiovascular Exam Cardiovascular Exam: +S1, +S2 - GI/Abdominal Exam GI & Abdominal Exam: Soft. absent: Tenderness Assessment and Plan - Assessment and Plan (Free Text) Plan: Assessment abdominal wall cellulitis with probable infected abdominal mesh; most recent cultures from 05/03/2018 showed Pseudomonas and C. famata acute renal failure S/P small bowel obstruction in this patient with ventral wall hernia, S/P ventral incarcerated hernia repair, adhesiolysis and revision of colostomy S/P acute coronary syndrome with NSTEMI COPD history of VRE UTI history of severe sepsis secondary to left medial thigh abscess, growing Proteus, S/P incision and drainage DM HTN CAD Unresectable rectal cancer S/P chemotherapy and radiation therapy S/P colostomy S/P Port-a-cath placement morbid obesity with BMI 50 obstructive sleep apnea history of pulmonary embolism S/P IVC filter placement Plan on Cefepime and Diflucan (day 10, renally-adjusted) - repeat abdominal wound cx are showing C. albicans; follow up further plans of surgery, but apparently the patient has been refusing to have the mesh removed as per other doctors - discussed with Dr. Florian Renal following and managing acute renal failure
--- NOTE | 2018-05-22 13:40 | PN ---
DATE: 05/22/2018 PULMONARY PROGRESS NOTE REFERRING PHYSICIAN: Elroy Florian MD SUBJECTIVE: The patient is in bed, screaming, seems agitated. When asked if she is in pain, the patient says no. No headache, rhinitis, cough, shortness of breath, chest pain, abdominal pain, nausea, vomiting or diarrhea, leg pain or leg swelling reported. Staff reports the patient wore BiPAP machine last night. PHYSICAL EXAMINATION: GENERAL: Appears agitated. VITAL SIGNS: Blood pressure 122/54, pulse 83, temperature 99 and oxygen saturation 95% on room air. HEENT: Moist mucous membranes. Crowded airway. Mallampati score of 4. NECK: Supple. No JVD. LUNGS: A few rhonchi bilaterally. CARDIOVASCULAR: S1 and S2 audible. ABDOMEN: Colostomy with soft stools. Surgical site with dressing in place. EXTREMITIES: Trace bilateral lower extremity edema. NEUROLOGIC: Awake, screaming on and off in Spanish. MEDICATIONS: Reviewed. Tylenol 650 mg every 4 hours p.r.n., DuoNeb 3 mL every 2 hours p.r.n., DuoNeb 3 mL inhalation every 6 hours, Norvasc 10 mg daily, Eliquis 2.5 mg twice a day, Brovana 15 mcg every 12 hours, aspirin 81 mg daily, atorvastatin 20 mg at bedtime, Pulmicort 0.5 mg every 12 hours, cefepime 1 gram daily, Klonopin 0.5 mg twice a day, clonidine 0.3 mg patch every week, Aranesp 150 mcg weekly, Colace 100 mg three times a day, ergocalciferol 50,000 units weekly, ferrous gluconate 324 mg daily, Diflucan 100 mg daily, hydralazine 100 mg three times a day, Levemir 20 units at bedtime, Humulin R sliding scale, isosorbide mononitrate 60 mg daily, labetalol 300 mg every 8 hours, Synthroid 50 mcg daily, magnesium oxide 400 mg twice a day, Procardia XL 60 mg in the evening, nystatin topically three times a day, Zofran 4 mg every 4 hours p.r.n., Protonix 20 mg, Lyrica 50 mg twice a day, Risperdal 0.5 mg at bedtime, saliva substitute five times a day p.r.n., Silvadene topically twice a day, simethicone 80 mg as needed, sodium chloride 100 mL per hour and Nephro-Holland one tab daily. LABORATORY DATA: Reviewed. WBC 6.4, RBC 2.86, hemoglobin 8.1, hematocrit 26.4 and platelets 360. Sodium 139, potassium 5.1, chloride of 108, carbon dioxide is 25, anion gap 11, BUN 66, creatinine 3.3. POC glucose 56 and random glucose 62. Calcium 7.5. Total bilirubin 0.3, AST 29, ALT 15, alkaline phosphatase 126, total protein 6.3, albumin 2.3, globulin 3.9, albumin-globulin ratio of 0.6. Urine culture final, no growth, less than 1000. IMPRESSION AND PLAN: Status post laparotomy for small bowel obstruction, hernia repair and relocation of colostomy, hypoventilation syndrome, sleep apnea syndrome, carbon dioxide retention, hypoxemia, history of pulmonary embolism and deep venous thrombosis, diabetes, chronic lung disease, pulmonary hypertension, mesh infection, abdominal wound has Celsa. Pulmonary point of view, continue to encourage bilevel positive airway pressure use at bedtime. Keep head of bed elevated at 45 degrees. Sleep apnea precautions. Deep venous thrombosis prophylaxis and gastric prophylaxis. Pain management. Monitor electrolytes closely. This patient was seen and examined with Dr. Ayala. Discussed assessment and plan as described above. Thank you for this consult and we will follow with you. Breezy Schafer APN Pamela Ayala MD ANT
[2018-05-22] MEDS: Sodium Chloride 0.45% 1,000 ML IV SCH ×2 (14:56→14:59)
--- NOTE | 2018-05-22 16:34 | CP.PCM.PN ---
Subjective - Date & Time of Evaluation Date of Evaluation: 05/22/18 Time of Evaluation: 16:12 - Subjective Subjective: Nephrology Consultation Note: Assessment: worsening ARF/CKD 3 SBO s/p ex lap AMS likely due to opiates ? MESH infection left adrenal adenoma, Rt renal hyperdense cyst chronic hypercapnic respi failure Diabetic chronic Kidney Disease (E11.22) Hypertensive Chronic Kidney Disease (I12.9) Chronic Kidney Disease (N18.3) Stage 3 with 2.4 gm proteinuria (R80.9) likely due to DM/HTN/Obesity Anemia Vit D def morbid obesity, CAD s/p stent, COPD/SUMMER, rectal ca s/p colostomy hypomag Plan No acute need for renal replacement therapy at this time. HTN control on multiple meds. stopped lopressor as pt already on labetalol. Monitor Input/Output, daily weights and renal function with basic metabolic panel PRBC as needed. d/w heme and okay to use KAVYA from heme perspective. on weekly ar ansep supplement lytes as needed hold lasix. continue with IVF medical management of hyperkalemia as ordered repeat UA, urine Na/cr and renal sono Adrenal adenoma work up with plasma renin/aldosterone, plasma metanephrine NEGATIVE. outpt 1 mg dexa suppression test repeat renal sono in 6 months to assess her Rt renal cyst Dose meds/antibiotics for reduced GFR. Avoid fleets enema/magnesium based l axatives. Avoid nephrotoxins/NSAIDs/ iodinated contrast (unless needed emergently) Glycemic control Further work up/management as per primary team Thanks for allowing me to participate in care of your patient. Will follow patient with you. Please call if any Qs. had d/w team Dr Dae Dawn Office: [phone] Chief Complaint;AMS Reason for consult: Acute Kidney Injury, CKD 3 HPI: Pt is a 62 F with hx of diabetes Mellitus (15 years), hypertension (years), CKD 3 with baseline cr 1.2-1.3 recently admitted after complicated abdominal surgery that represents w/ abdominal pain. Was recommended to get mesh removed last admission but refusing and still refusing per surgical service. She does not know why she is in the hospital. She denies n/v. She endorses reduced po intake. ROS: pt not able to provide Physical Examination: General Appearance: uncomfortable, morbidly obese. Vitals reviewed and noted as below Head; Atraumatic, normocephalic ENT: dry mucosa EYES: Pupils are equal, round and reactive to light accommodation. Eye muscles and extraocular movement intact. Sclera is anicteric. Neck; supple no lymphadenopathy, no thyromegaly or bruit Lungs: Normal respiratory rate/effort. Breath sounds bilateral equal, diminished at bases but overall limited exam due to her obesity Heart: normal rate. s1s2 normal. No rub or gallop. Extremities: 1+ edema, non pitting lymphedema as well. No varicose veins Neurological: Patient is sleepy today confused Skin: Warm and dry. Normal turgor. No rash. Palpitation: Normal elasticity for age Abdomen: Abdomen is + colostomy Psych: flat affect MSK: no joint tenderness or swelling. Digits and nails normal, no deformity : kidney or bladder not palpable Labs/imaging reviewed. Past medical history, past surgical history, family history, social history, allergy reviewed and noted as below Family hx: no hx of CKD. Rest non-contributory Objective - Vital Signs/Intake and Output Vital Signs (last 24 hours): Temp Pulse Resp BP Pulse Ox 99 F 84 24 143/82 95 05/22/18 06:00 05/22/18 06:37 05/22/18 06:00 05/22/18 15:12 05/22/18 06:00 Intake and Output: 05/22/18 05/22/18 06:59 18:59 Intake Total 120 Output Total 270 Balance -150 - Medications Medications: Current Medications Acetaminophen (Tylenol 325mg Tab) 650 mg PO Q4H PRN PRN Reason: Pain, Mild (1-3) Albuterol/Ipratropium (Duoneb 3 Mg/0.5 Mg (3 Ml) Ud) 3 ml IH [id number] [facility] Last Admin: 05/22/18 13:32 Dose: 3 ml Albuterol/Ipratropium (Duoneb 3 Mg/0.5 Mg (3 Ml) Ud) 3 ml IH Q2H PRN PRN Reason: Shortness of Breath Amlodipine Besylate (Norvasc) 10 mg PO DAILY [facility] Last Admin: 05/22/18 10:00 Dose: Not Given Apixaban (Eliquis) 2.5 mg PO BID [facility]; Protocol Last Admin: 05/22/18 12:13 Dose: 2.5 mg Arformoterol Tartrate (Brovana) 15 mcg IH [id number] [facility] Last Admin: 05/22/18 08:34 Dose: 15 mcg Aspirin (Ecotrin) 81 mg PO DAILY [facility] Last Admin: 05/22/18 12:14 Dose: 81 mg Atorvastatin Calcium (Lipitor) 20 mg PO HS [facility] Last Admin: 05/21/18 23:03 Dose: 20 mg Budesonide (Pulmicort Respules) 0.5 mg IH [id number] [facility] Last Admin: 05/22/18 08:34 Dose: 0.5 mg Clonazepam (Klonopin) 0.5 mg PO BID PRN; Protocol PRN Reason: Anxiety Last Admin: 05/22/18 12:13 Dose: 0.5 mg Clonidine HCl (Catapres-Tts3 0.3 Mg/24 Hr) 1 patch TD Q7D@1000 [facility] Last Admin: 05/18/18 11:06 Dose: 1 patch Darbepoetin Timothy (Aranesp) 150 mcg SC QWK [facility] Last Admin: 05/21/18 09:55 Dose: 150 mcg Docusate Sodium (Colace) 100 mg PO TID [facility] Last Admin: 05/22/18 15:12 Dose: 100 mg Ergocalciferol (Drisdol 50,000 Intl Units Cap) 1 cap PO Q7D [facility] Last Admin: 05/18/18 23:00 Dose: Not Given Ferrous Gluconate (Fergon) 324 mg PO DAILY [facility] Last Admin: 05/22/18 12:14 Dose: 324 mg Fluconazole (Diflucan) 100 mg PO DAILY [facility]; Protocol Stop: 05/28/18 10:01 Last Admin: 05/22/18 12:14 Dose: 100 mg Hydralazine HCl (Apresoline) 100 mg PO TID [facility] Last Admin: 05/22/18 15:12 Dose: 100 mg Sodium Chloride (Sodium Chloride 0.45%) 1,000 mls @ 100 mls/hr IV .Q10H [facility] Last Admin: 05/22/18 14:59 Dose: 100 mls/hr Cefepime HCl (Maxipime 1gm) 1 gm in 100 mls @ 100 mls/hr IVPB DAILY [facility]; Protocol Last Admin: 05/22/18 12:15 Dose: 100 mls/hr Insulin Detemir (Levemir) 20 unit SC [facility] Last Admin: 05/21/18 23:06 Dose: 20 units Insulin Human Regular (Humulin R Low) [address] [facility]; Protocol Last Admin: 05/22/18 14:54 Dose: Not Given Isosorbide Mononitrate (Imdur) 60 mg PO DAILY [facility] Last Admin: 05/22/18 12:14 Dose: 60 mg Labetalol HCl (Trandate) 300 mg PO Q8 [facility] Last Admin: 05/22/18 15:12 Dose: 300 mg Levothyroxine Sodium (Synthroid) 50 mcg PO 0600 [facility] Last Admin: 05/22/18 06:37 Dose: 50 mcg Magnesium Oxide (Mag-Ox) 400 mg PO BID [facility] Last Admin: 05/22/18 12:13 Dose: 400 mg Nifedipine (Procardia Xl) 60 mg PO QPM [facility] Last Admin: 05/21/18 17:12 Dose: Not Given Nystatin (Nystop Topical Powder) 0 gm TOP TID [facility] Last Admin: 05/22/18 14:55 Dose: 1 applic Ondansetron HCl (Zofran Inj) 4 mg IVP Q4H PRN PRN Reason: Nausea/Vomiting Pantoprazole Sodium (Protonix Ec Tab) 20 mg PO ACB [facility] Last Admin: 05/22/18 12:13 Dose: 20 mg Pregabalin (Lyrica) 50 mg PO BID [facility] Last Admin: 05/22/18 12:14 Dose: 50 mg Risperidone (Risperdal Tab) 0.5 mg PO [facility]; Protocol Saliva Substitute (Saliva Substitute) 0 ml PO 5XD PRN PRN Reason: DRY MOUTH Silver Sulfadiazine (Silvadene 1% 25 Gm) 0 gm TP BID [facility] Last Admin: 05/22/18 10:00 Dose: 25 gm Simethicone (Mylicon Chew Tab) 80 mg PO PCHS PRN PRN Reason: GI distress Vitamin B Complex/Vit C/Folic Acid (Nephro-Holland) 1 tab PO 0800 [facility] Last Admin: 05/22/18 12:13 Dose: 1 tab - Labs Labs: 05/22/18 05:15 05/22/18 05:15 PT 15.0 SECONDS (9.4-12.5) H 05/11/18 13:45 INR 1.30 05/11/18 13:45 APTT 20.4 Seconds (25.1-36.5) L 05/11/18 13:45
--- NOTE | 2018-05-22 17:03 | PN ---
DATE: 05/22/2018 SUBJECTIVE: The patient is a 62-year-old [place] female who was admitted in a febrile state and who appears to be somewhat bizarre in her anxiety, in her crying out for pain medication and in her general half activity and interactivity. Case discussed with nursing. It is unclear if this represents hysteria, , pain, psychosis, organicity. I have started the patient on Risperdal and we will continue to monitor with you. Hemoglobin today is lower at 8.1/hematocrit 26.4, RBC 2.86. Blood sugar 67 at 12:20. Blood pressure 122/54, pulse 84, temperature 99, respiratory rate 24. We will continue to monitor with you. Eusebio Mendoza MD/ PhD
[2018-05-22] MEDS: NIFEdipine 60 mg ER Tab PO SCH (18:11)
--- NOTE | 2018-05-22 19:01 | PN ---
DATE: 05/22/2018 REASON FOR CONSULTATION AND FOLLOWUP: Cardiac evaluation, history of congestive heart failure, transferred to retirement due to lethargy, history of CAD. This note is in addition to dictated by nurse practitioner, Tiffanie Osborne. In summary, this is a [id number], morbidly obese with history of rectal cancer status post colostomy, recently status post small bowel obstruction, status post surgery 04/16/2018, exploratory laparotomy and lysis of adhesion and revision of colostomy, sent to the retirement where the patient admitted with altered mental status, history of CAD, history of , borderline troponin positive, medical treatment recommended. The patient is stable and asymptomatic. RECOMMENDATION: Continue aggressive medical treatment, the patient went into acute kidney injury. Continue hydration. Monitory electrolytes, yesterday Kayexalate was given. Follow up electrolytes. P.r.n. hydralazine. Avoid nephrotoxic medication. The patient is on 2.5 b.i.d. for DVT/PE in the past. Overall, the patient's condition is critical. Long-term prognosis guarded. We will get the blood workup tomorrow. We will follow with you. Thank you Dr. Florian to providing us an opportunity in taking care of the patient, Pedro Guevara. Pamela Guerrero MD
[2018-05-22] MEDS: Insulin Detemir 100 units/ml Vial (Levemir) SC SCH (21:56)
[2018-05-23] MEDS: Albuterol-Ipratrop 3 mg / 0.5 (3 ml) UD IH SCH ×4 (02:25→19:03)
[2018-05-23] MEDS: Levothyroxine 50 MCG TAB PO SCH (06:33)
[2018-05-23 07:09] LABS: BASO # 0.04 K/mm3 (0.0-2.0); BASO % 0.6 % (0.0-3.0); EOS # 0.5 (0.0-0.7); EOS % 7.7 % (1.5-5.0); GRAN # 3.59 (1.4-6.5); GRAN % 51.3 % (50.0-68.0); HEMOGLOBIN 7.7 g/dL (12.0-16.0); LYMPH # 2.1 (1.2-3.4); LYMPH % 30.2 % (22.0-35.0); MEAN CELL VOLUME 92.1 fl (80.0-105.0); MEAN CORPUSCULAR HEMOGLOBIN 27.5 pg (25.0-35.0); MEAN CORPUSCULAR HGB CONC 29.8 g/dl (31.0-37.0); MEAN PLATELET VOLUME 9.1 fl (7.0-11.0); MONO # 0.7 (0.1-0.6); MONO % 10.2 % (1.0-6.0); RBC 2.8 10^6/uL (3.5-6.1); RED CELL DISTRIBUTION WIDTH 18.9 % (11.5-14.5)
--- NOTE | 2018-05-23 07:13 | CP.PCM.PN ---
Subjective - Date & Time of Evaluation Date of Evaluation: 05/23/18 Time of Evaluation: 06:55 - Subjective Subjective: Lying in bed, no distress, moaning, asking for pain medicine Reason for consultation and follow up: Cardiac evaluation of history of congestive heart failure, transferred from halfway due to lethargy Seen and examined by me and Dr. Guerrero Objective - Vital Signs/Intake and Output Vital Signs (last 24 hours): Temp Pulse Resp BP Pulse Ox 98.5 F 80 21 142/51 L 97 05/22/18 22:00 05/23/18 06:33 05/22/18 22:00 05/23/18 06:33 05/22/18 22:00 - Medications Medications: Current Medications Acetaminophen (Tylenol 325mg Tab) 650 mg PO Q4H PRN PRN Reason: Pain, Mild (1-3) Last Admin: 05/23/18 04:42 Dose: 650 mg Albuterol/Ipratropium (Duoneb 3 Mg/0.5 Mg (3 Ml) Ud) 3 ml IH [id number] [facility] Last Admin: 05/23/18 02:25 Dose: 3 ml Albuterol/Ipratropium (Duoneb 3 Mg/0.5 Mg (3 Ml) Ud) 3 ml IH Q2H PRN PRN Reason: Shortness of Breath Amlodipine Besylate (Norvasc) 10 mg PO DAILY [facility] Last Admin: 05/22/18 10:00 Dose: Not Given Apixaban (Eliquis) 2.5 mg PO BID [facility]; Protocol Last Admin: 05/22/18 18:11 Dose: 2.5 mg Arformoterol Tartrate (Brovana) 15 mcg IH [id number] [facility] Last Admin: 05/22/18 20:30 Dose: 15 mcg Aspirin (Ecotrin) 81 mg PO DAILY [facility] Last Admin: 05/22/18 12:14 Dose: 81 mg Atorvastatin Calcium (Lipitor) 20 mg PO HS [facility] Last Admin: 05/22/18 21:47 Dose: 20 mg Budesonide (Pulmicort Respules) 0.5 mg IH [id number] [facility] Last Admin: 05/22/18 20:31 Dose: 0.5 mg Clonazepam (Klonopin) 0.5 mg PO BID PRN; Protocol PRN Reason: Anxiety Last Admin: 05/22/18 12:13 Dose: 0.5 mg Clonidine HCl (Catapres-Tts3 0.3 Mg/24 Hr) 1 patch TD Q7D@1000 [facility] Last Admin: 05/18/18 11:06 Dose: 1 patch Darbepoetin Timothy (Aranesp) 150 mcg SC QWK [facility] Last Admin: 05/21/18 09:55 Dose: 150 mcg Docusate Sodium (Colace) 100 mg PO TID [facility] Last Admin: 05/22/18 18:10 Dose: 100 mg Ergocalciferol (Drisdol 50,000 Intl Units Cap) 1 cap PO Q7D [facility] Last Admin: 05/18/18 23:00 Dose: Not Given Ferrous Gluconate (Fergon) 324 mg PO DAILY [facility] Last Admin: 05/22/18 12:14 Dose: 324 mg Fluconazole (Diflucan) 100 mg PO DAILY [facility]; Protocol Stop: 05/28/18 10:01 Last Admin: 05/22/18 12:14 Dose: 100 mg Hydralazine HCl (Apresoline) 100 mg PO TID [facility] Last Admin: 05/22/18 18:11 Dose: 100 mg Sodium Chloride (Sodium Chloride 0.45%) 1,000 mls @ 100 mls/hr IV .Q10H [facility] Last Admin: 05/22/18 14:59 Dose: 100 mls/hr Cefepime HCl (Maxipime 1gm) 1 gm in 100 mls @ 100 mls/hr IVPB DAILY [facility]; Protocol Last Admin: 05/22/18 12:15 Dose: 100 mls/hr Insulin Detemir (Levemir) 20 unit SC HS [facility] Last Admin: 05/22/18 21:56 Dose: Not Given Insulin Human Regular (Humulin R Low) 0 units SC [facility]; Protocol Last Admin: 05/22/18 18:13 Dose: Not Given Isosorbide Mononitrate (Imdur) 60 mg PO DAILY [facility] Last Admin: 05/22/18 12:14 Dose: 60 mg Labetalol HCl (Trandate) 300 mg PO Q8 [facility] Last Admin: 05/23/18 06:33 Dose: 300 mg Levothyroxine Sodium (Synthroid) 50 mcg PO 0600 [facility] Last Admin: 05/23/18 06:33 Dose: 50 mcg Magnesium Oxide (Mag-Ox) 400 mg PO BID [facility] Last Admin: 05/22/18 18:13 Dose: 400 mg Nifedipine (Procardia Xl) 60 mg PO QPM [facility] Last Admin: 05/22/18 18:11 Dose: 60 mg Nystatin (Nystop Topical Powder) 0 gm TOP TID [facility] Last Admin: 05/22/18 18:14 Dose: Not Given Ondansetron HCl (Zofran Inj) 4 mg IVP Q4H PRN PRN Reason: Nausea/Vomiting Pantoprazole Sodium (Protonix Ec Tab) 20 mg PO ACB [facility] Last Admin: 05/22/18 12:13 Dose: 20 mg Pregabalin (Lyrica) 50 mg PO BID [facility] Last Admin: 05/22/18 18:11 Dose: 50 mg Risperidone (Risperdal Tab) 0.5 mg PO HS [facility]; Protocol Last Admin: 05/22/18 21:47 Dose: 0.5 mg Saliva Substitute (Saliva Substitute) 0 ml PO 5XD PRN PRN Reason: DRY MOUTH Silver Sulfadiazine (Silvadene 1% 25 Gm) 0 gm TP BID [facility] Last Admin: 05/22/18 18:14 Dose: Not Given Simethicone (Mylicon Chew Tab) 80 mg PO PCHS PRN PRN Reason: GI distress Vitamin B Complex/Vit C/Folic Acid (Nephro-Holland) 1 tab PO 0800 [facility] Last Admin: 05/22/18 12:13 Dose: 1 tab - Labs Labs: 05/22/18 05:15 05/22/18 05:15 PT 15.0 SECONDS (9.4-12.5) H 05/11/18 13:45 INR 1.30 05/11/18 13:45 APTT 20.4 Seconds (25.1-36.5) L 05/11/18 13:45 - Constitutional Appears: Non-toxic, No Acute Distress - Head Exam Head Exam: NORMAL INSPECTION, NORMOCEPHALIC - Eye Exam Eye Exam: Normal appearance - Respiratory Exam Respiratory Exam: Decreased Breath Sounds, NORMAL BREATHING PATTERN - Cardiovascular Exam Cardiovascular Exam: +S1, +S2 Additional comments: right chest port - GI/Abdominal Exam GI & Abdominal Exam: Soft, Normal Bowel Sounds Additional comments: colostomy - Exam Additional comments: linares catheter - Extremities Exam Additional comments: 3+edema - Neurological Exam Neurological Exam: Alert, Awake - Psychiatric Exam Psychiatric exam: Anxious - Skin Skin Exam: Dry, Normal Color, Warm Assessment and Plan - Assessment and Plan (Free Text) Assessment: A 62 year old morbidly obese female who got transferred [place] [facility] [place] [facility] due to altered mental status. Patient is known to service from previous multiple admissions. History of coronary artery disease with stent of circumflex,hypertension,hyperlipidemia,diabetes,sleep apnea,COPD, congestive heart failure, DVT/PE. History of bowel resection in the past with colostomy. She was admitted [place] [facility] due to small bowel obstruction and on 04/16/18 she had explor-lap and lysis of adhesions and ventral hernia repair with revision of colostomy (Dr. Mckeon).Postoperatively, patient had infection involving th mesh placed for the hernia repair and it was recommended that she undergo an additional procedure to have the mesh removed however patient refused surgical procedure. [facility] Chest X ray showed severe cardiomegaly,moderate to severe pulmonary congestion.Not in respiratory distress, On nasal cannula 4l/min. Troponin 0.14/.15, denies chest pain, EKG- normal sinus rhythm, elevated due to renal insuffiency. Will treat medically. Surgical follow up for abdominal wound. Symptoms clinically improved. Cardiac status stable.Repeat Chest X ray from last Sunday showed improved vascular congestion. Accepted to [facility]hab. Transferred held to [facility] due to hyperkalemia.Hyperkalemia resolved. Plan: No distress, complaining of pain, RN gave Tylenol PRN Cardiac status stable No distress, Denies chest pain Heart rate controlled Blood pressure controlled IV hydration at 50 cc/hr On Norvasc 10 mg daily, Eliquis 2.5 mg BID, ASA 81 mg daily, Lipitor 20 mg daily,Clonidine patch weekly,Lasix 40 mg daily, Labetolol 300 mg every 8 hours, Nifedipine 60 mg daily, Imdur 60 mg daily Continue current treatment Continue current medications Controlled glucose Will follow up Plan and treatment discussed with Dr. Guerrero
[2018-05-23 07:38] LABS: ALB/GLOB RATIO 0.6 (1.1-1.8); ALBUMIN 2.3 g/dL (3.0-4.8); CALCIUM 7.1 mg/dL (8.4-10.5)
[2018-05-23] MEDS: Budesonide 0.5 mg/2 ml Inhal Susp UD IH SCH ×2 (07:44→19:04)
[2018-05-23] MEDS: Arformoterol 15 mcg/2 ml Inh Sol IH SCH (07:44)
[2018-05-23] MEDS: Insulin Reg-LOW-Coverage SC SCH ×3 (08:30→16:37)
[2018-05-23] MEDS: Magnesium Oxide 400 mg Tab UD PO SCH ×2 (10:30→18:46)
[2018-05-23] MEDS: Cefepime 1gm in NS 100ml 1 GM/100 ML BAG IVPB SCH (10:31)
[2018-05-23] MEDS: Nystatin 100,000 Units/gm Topical Pow(15 gm) TOP SCH ×2 (10:34→16:37)
[2018-05-23] MEDS: Pantoprazole 20 mg EC Tab PO SCH (10:34)
[2018-05-23] MEDS: Silver Sulfadiazine 1% Cream (25 gm) TP SCH (10:35)
[2018-05-23] MEDS: Sodium Chloride 0.45% 1,000 ML IV SCH (10:35)
[2018-05-23] MEDS: Multivitamin Vitamin B Complex (Nephro-Vite) Tab PO SCH (10:41)
[2018-05-23 11:40] LABS: HEMOGLOBIN 7.8 g/dL (12.0-16.0)
--- NOTE | 2018-05-23 12:05 | CP.PCM.APN ---
Subjective - Date & Time of Evaluation Date of Evaluation: 05/23/18 Time of Evaluation: 12:05 - Subjective Subjective: pt seenant bedside with physocal therapy in progress pt awake and alert asking questions about rehab, Review of Systems - Gastrointestinal Additional comments: c/o of abd pain Objective - Vital Signs/Intake and Output Vital Signs (last 24 hours): Temp Pulse Resp BP Pulse Ox 98.1 F 79 24 145/59 L 96 05/23/18 06:00 05/23/18 10:28 05/23/18 06:00 05/23/18 10:32 05/23/18 06:00 - Medications Medications: Current Medications Acetaminophen (Tylenol 325mg Tab) 650 mg PO Q4H PRN PRN Reason: Pain, Mild (1-3) Last Admin: 05/23/18 04:42 Dose: 650 mg Albuterol/Ipratropium (Duoneb 3 Mg/0.5 Mg (3 Ml) Ud) 3 ml IH [id number] [facility] Last Admin: 05/23/18 07:44 Dose: Not Given Albuterol/Ipratropium (Duoneb 3 Mg/0.5 Mg (3 Ml) Ud) 3 ml IH Q2H PRN PRN Reason: Shortness of Breath Amlodipine Besylate (Norvasc) 10 mg PO DAILY [facility] Last Admin: 05/23/18 10:32 Dose: 10 mg Apixaban (Eliquis) 2.5 mg PO BID [facility]; Protocol Last Admin: 05/23/18 10:29 Dose: 2.5 mg Arformoterol Tartrate (Brovana) 15 mcg IH [id number] [facility] Last Admin: 05/23/18 07:44 Dose: Not Given Aspirin (Ecotrin) 81 mg PO DAILY [facility] Last Admin: 05/23/18 10:29 Dose: 81 mg Atorvastatin Calcium (Lipitor) 20 mg PO HS [facility] Last Admin: 05/22/18 21:47 Dose: 20 mg Budesonide (Pulmicort Respules) 0.5 mg IH [id number] [facility] Last Admin: 05/23/18 07:44 Dose: Not Given Clonazepam (Klonopin) 0.5 mg PO BID PRN; Protocol PRN Reason: Anxiety Last Admin: 05/23/18 11:59 Dose: 0.5 mg Clonidine HCl (Catapres-Tts3 0.3 Mg/24 Hr) 1 patch TD Q7D@1000 [facility] Last Admin: 05/18/18 11:06 Dose: 1 patch Darbepoetin Timothy (Aranesp) 150 mcg SC QWK [facility] Last Admin: 05/21/18 09:55 Dose: 150 mcg Docusate Sodium (Colace) 100 mg PO TID [facility] Last Admin: 05/23/18 10:28 Dose: 100 mg Ergocalciferol (Drisdol 50,000 Intl Units Cap) 1 cap PO Q7D [facility] Last Admin: 05/18/18 23:00 Dose: Not Given Ferrous Gluconate (Fergon) 324 mg PO DAILY [facility] Last Admin: 05/23/18 10:42 Dose: 324 mg Fluconazole (Diflucan) 100 mg PO DAILY [facility]; Protocol Stop: 05/28/18 10:01 Last Admin: 05/23/18 10:29 Dose: 100 mg Hydralazine HCl (Apresoline) 100 mg PO TID [facility] Last Admin: 05/23/18 10:28 Dose: 100 mg Sodium Chloride (Sodium Chloride 0.45%) 1,000 mls @ 100 mls/hr IV .Q10H [facility] Last Admin: 05/23/18 10:35 Dose: 100 mls/hr Cefepime HCl (Maxipime 1gm) 1 gm in 100 mls @ 100 mls/hr IVPB DAILY [facility]; Pro tocol Last Admin: 05/23/18 10:31 Dose: 100 mls/hr Insulin Detemir (Levemir) 20 unit SC HS [facility] Last Admin: 05/22/18 21:56 Dose: Not Given Insulin Human Regular (Humulin R Low) 0 units SC ACHS [facility]; Protocol Last Admin: 05/23/18 11:38 Dose: Not Given Isosorbide Mononitrate (Imdur) 60 mg PO DAILY [facility] Last Admin: 05/23/18 10:30 Dose: 60 mg Labetalol HCl (Trandate) 300 mg PO Q8 [facility] Last Admin: 05/23/18 06:33 Dose: 300 mg Levothyroxine Sodium (Synthroid) 50 mcg PO 0600 [facility] Last Admin: 05/23/18 06:33 Dose: 50 mcg Magnesium Oxide (Mag-Ox) 400 mg PO BID [facility] Last Admin: 05/23/18 10:30 Dose: 400 mg Multivitamins (Thera Tab) 1 tab PO 0800 [facility] Nifedipine (Procardia Xl) 60 mg PO QPM [facility] Last Admin: 05/22/18 18:11 Dose: 60 mg Nystatin (Nystop Topical Powder) 0 gm TOP TID [facility] Last Admin: 05/23/18 10:34 Dose: 25 applic Ondansetron HCl (Zofran Inj) 4 mg IVP Q4H PRN PRN Reason: Nausea/Vomiting Pantoprazole Sodium (Protonix Ec Tab) 20 mg PO ACB [facility] Last Admin: 05/23/18 10:34 Dose: 20 mg Pregabalin (Lyrica) 50 mg PO BID [facility] Last Admin: 05/23/18 10:36 Dose: 50 mg Risperidone (Risperdal Tab) 0.5 mg PO HS [facility]; Protocol Last Admin: 05/22/18 21:47 Dose: 0.5 mg Saliva Substitute (Saliva Substitute) 0 ml PO 5XD PRN PRN Reason: DRY MOUTH Sevelamer HCl (Renagel) 800 mg PO TID [facility] Silver Sulfadiazine (Silvadene 1% 25 Gm) 0 gm TP BID [facility] Last Admin: 05/23/18 10:35 Dose: 25 gm Simethicone (Mylicon Chew Tab) 80 mg PO PCHS PRN PRN Reason: GI distress Vitamin B Complex/Vit C/Folic Acid (Nephro-Holland) 1 tab PO 0800 [facility] Last Admin: 05/23/18 10:41 Dose: 1 tab - Labs Labs: 05/23/18 11:30 05/23/18 06:50 PT 15.0 SECONDS (9.4-12.5) H 05/11/18 13:45 INR 1.30 05/11/18 13:45 APTT 20.4 Seconds (25.1-36.5) L 05/11/18 13:45 - Constitutional Appears: No Acute Distress - Head Exam Head Exam: ATRAUMATIC, NORMOCEPHALIC - Eye Exam Eye Exam: Normal appearance Pupil Exam: PERRL - ENT Exam ENT Exam: Mucous Membranes Moist - Neck Exam Neck Exam: Normal Inspection - Respiratory Exam Respiratory Exam: Decreased Breath Sounds - Cardiovascular Exam Cardiovascular Exam: +S1, +S2 - Psychiatric Exam Psychiatric exam: Flat Affect - Skin Skin Exam: Dry, Intact Assessment and Plan - Assessment and Plan (Free Text) Plan: All Active Problems COPD (chronic obstructive pulmonary disease) (Acute) Congestive heart failure (Acute) Urinary tract infection (Acute) Abdominal pain (Acute) Abscess (Acute) Acute hypercapnic respiratory failure due to obstructive sleep apnea (Acute) Acute kidney injury (Acute) Acute pulmonary embolus (Acute) [id number] kidney injury (Acute) Altered mental status (Acute) Anemia (Acute) Anemia of chronic disease (Acute) Back pain (Acute) Chronic kidney disease-mineral and bone disorder (Acute) Dehydration (Acute) Diastolic CHF (Acute) Hypercapnic respiratory failure, chronic (Acute) Hyperglycemia (Acute) Hypertension (Acute) Hypertensive chronic kidney disease (Acute) Intractable abdominal pain (Acute) Intractable vomiting (Acute) Leukocytosis (Acute) Nephrotic range proteinuria (Acute) Partial small bowel obstruction (Acute) Pneumonia (Acute) Proteinuria (Acute) Pulmonary edema (Acute) Rectal carcinoma (Acute) Renal failure (Acute) Renal failure (ARF), acute on chronic (Acute) Renal failure (ARF), acute on chronic (Acute) Renal insufficiency (Acute) Respiratory compromise (Acute) Respiratory distress (Acute) Sepsis (Acute) Tachycardia (Acute) A/P 62 yr old female with pmh sig for htn, hld, unresectable colon ca sbo s/p abd surgery 04/14/18 with probable infection involving the mesh placed during the surgery now brought [facility] the [facility] from [facility] for lethargy and fever now being evaluated by ID for abd wall cellulitis with recent cultures may 03 showing pseudomons and c. famata, with additional abdominal wound and UC showing yeast species/ megan albicans per discussion with ID medications were changed to p.o. diflucan 100mg x 7 days and iv maxipime x 7 days as recommended renal notes rev'd , K improved at 5.0 today in setting of CKD 3 repeating h/h due to drop in levels - per medical laboratory assistant was drawn from port will follow results and heme/onc impression ?Anemia of ckd, will repeat h/h and order iron studies Heme/onc consult with Dr Wolfe noted from pmd- pending \ BPCI/TIC - BPCIA/TIC Educated pt/family on BPCIA/CIR/Med to Bed Programs: Yes Flyers given, including CMS Beneficiary letter: Yes Pt/family verbalized understanding & agreed to program: Yes
--- NOTE | 2018-05-23 12:36 | CP.PCM.PN ---
Subjective - Date & Time of Evaluation Date of Evaluation: 05/23/18 Time of Evaluation: 08:50 - Subjective Subjective: Patient still has periods of agitation, no fevers. Objective - Vital Signs/Intake and Output Vital Signs (last 24 hours): Temp Pulse Resp BP Pulse Ox 99 F 84 24 122/54 L 95 05/22/18 06:00 05/22/18 06:37 05/22/18 06:00 05/22/18 12:12 05/22/18 06:00 Intake and Output: 05/22/18 05/22/18 06:59 18:59 Intake Total 120 Output Total 270 Balance -150 - Medications Medications: Current Medications Acetaminophen (Tylenol 325mg Tab) 650 mg PO Q4H PRN PRN Reason: Pain, Mild (1-3) Albuterol/Ipratropium (Duoneb 3 Mg/0.5 Mg (3 Ml) Ud) 3 ml IH [id number] [facility] Last Admin: 05/22/18 08:34 Dose: 3 ml Albuterol/Ipratropium (Duoneb 3 Mg/0.5 Mg (3 Ml) Ud) 3 ml IH Q2H PRN PRN Reason: Shortness of Breath Amlodipine Besylate (Norvasc) 10 mg PO DAILY [facility] Last Admin: 05/21/18 09:40 Dose: Not Given Apixaban (Eliquis) 2.5 mg PO BID [facility]; Protocol Last Admin: 05/22/18 12:13 Dose: 2.5 mg Arformoterol Tartrate (Brovana) 15 mcg IH [id number] [facility] Last Admin: 05/22/18 08:34 Dose: 15 mcg Aspirin (Ecotrin) 81 mg PO DAILY [facility] Last Admin: 05/22/18 12:14 Dose: 81 mg Atorvastatin Calcium (Lipitor) 20 mg PO HS [facility] Last Admin: 05/21/18 23:03 Dose: 20 mg Budesonide (Pulmicort Respules) 0.5 mg IH [id number] [facility] Last Admin: 05/22/18 08:34 Dose: 0.5 mg Clonazepam (Klonopin) 0.5 mg PO BID PRN; Protocol PRN Reason: Anxiety Last Admin: 05/22/18 12:13 Dose: 0.5 mg Clonidine HCl (Catapres-Tts3 0.3 Mg/24 Hr) 1 patch TD Q7D@1000 [facility] Last Admin: 05/18/18 11:06 Dose: 1 patch Darbepoetin Timothy (Aranesp) 150 mcg SC QWK [facility] Last Admin: 05/21/18 09:55 Dose: 150 mcg Docusate Sodium (Colace) 100 mg PO TID [facility] Last Admin: 05/22/18 12:14 Dose: 100 mg Ergocalciferol (Drisdol 50,000 Intl Units Cap) 1 cap PO Q7D [facility] Last Admin: 05/18/18 23:00 Dose: Not Given Ferrous Gluconate (Fergon) 324 mg PO DAILY [facility] Last Admin: 05/22/18 12:14 Dose: 324 mg Fluconazole (Diflucan) 100 mg PO DAILY [facility]; Protocol Stop: 05/28/18 10:01 Last Admin: 05/22/18 12:14 Dose: 100 mg Hydralazine HCl (Apresoline) 100 mg PO TID [facility] Last Admin: 05/22/18 12:12 Dose: Not Given Sodium Chloride (Sodium Chloride 0.45%) 1,000 mls @ 100 mls/hr IV .Q10H [facility] Last Admin: 05/21/18 09:41 Dose: 100 mls/hr Cefepime HCl (Maxipime 1gm) 1 gm in 100 mls @ 100 mls/hr IVPB DAILY [facility]; Protocol Last Admin: 05/22/18 12:15 Dose: 100 mls/hr Insulin Detemir (Levemir) 20 unit SC HS [facility] Last Admin: 05/21/18 23:06 Dose: 20 units Insulin Human Regular (Humulin R Low) 0 units SC ACHS [facility]; Protocol Last Admin: 05/21/18 22:21 Dose: Not Given Isosorbide Mononitrate (Imdur) 60 mg PO DAILY [facility] Last Admin: 05/22/18 12:14 Dose: 60 mg Labetalol HCl (Trandate) 300 mg PO Q8 [facility] Last Admin: 05/22/18 06:37 Dose: 300 mg Levothyroxine Sodium (Synthroid) 50 mcg PO 0600 [facility] Last Admin: 05/22/18 06:37 Dose: 50 mcg Magnesium Oxide (Mag-Ox) 400 mg PO BID [facility] Last Admin: 05/22/18 12:13 Dose: 400 mg Nifedipine (Procardia Xl) 60 mg PO QPM [facility] Last Admin: 05/21/18 17:12 Dose: Not Given Nystatin (Nystop Topical Powder) 0 gm TOP TID [facility] Last Admin: 05/21/18 17:10 Dose: 1 applic Ondansetron HCl (Zofran Inj) 4 mg IVP Q4H PRN PRN Reason: Nausea/Vomiting Pantoprazole Sodium (Protonix Ec Tab) 20 mg PO ACB [facility] Last Admin: 05/22/18 12:13 Dose: 20 mg Pregabalin (Lyrica) 50 mg PO BID [facility] Last Admin: 05/22/18 12:14 Dose: 50 mg Risperidone (Risperdal Tab) 0.5 mg PO HS [facility]; Protocol Saliva Substitute (Saliva Substitute) 0 ml PO 5XD PRN PRN Reason: DRY MOUTH Silver Sulfadiazine (Silvadene 1% 25 Gm) 0 gm TP BID [facility] Last Admin: 05/21/18 17:10 Dose: 1 gm Simethicone (Mylicon Chew Tab) 80 mg PO PCHS PRN PRN Reason: GI distress Vitamin B Complex/Vit C/Folic Acid (Nephro-Holland) 1 tab PO 0800 [facility] Last Admin: 05/22/18 12:13 Dose: 1 tab - Labs Labs: 05/22/18 05:15 05/22/18 05:15 PT 15.0 SECONDS (9.4-12.5) H 05/11/18 13:45 INR 1.30 05/11/18 13:45 APTT 20.4 Seconds (25.1-36.5) L 05/11/18 13:45 - Constitutional Appears: Chronically Ill - Head Exam Head Exam: NORMAL INSPECTION - Respiratory Exam Respiratory Exam: Decreased Breath Sounds - Cardiovascular Exam Cardiovascular Exam: +S1, +S2 - GI/Abdominal Exam GI & Abdominal Exam: Soft. absent: Tenderness Assessment and Plan - Assessment and Plan (Free Text) Plan: Assessment abdominal wall cellulitis with probable infected abdominal mesh; most recent cultures from 05/03/2018 showed Pseudomonas and C. famata acute renal failure S/P small bowel obstruction in this patient with ventral wall hernia, S/P ventral incarcerated hernia repair, adhesiolysis and revision of colostomy S/P acute coronary syndrome with NSTEMI COPD history of VRE UTI history of severe sepsis secondary to left medial thigh abscess, growing Proteus, S/P incision and drainage DM HTN CAD Unresectable rectal cancer S/P chemotherapy and radiation therapy S/P colostomy S/P Port-a-cath placement morbid obesity with BMI 50 obstructive sleep apnea history of pulmonary embolism S/P IVC filter placement Plan on Cefepime and Diflucan (day 11, renally-adjusted) - repeat abdominal wound cx are showing C. albicans; follow up further plans of surgery, but apparently the patient has been refusing to have the mesh removed as per other doctors - discussed with Dr. Florian Renal following and managing acute renal failure
--- NOTE | 2018-05-23 12:45 | PN ---
DATE: 05/23/2018 PULMONARY PROGRESS NOTE REFERRING PHYSICIAN: Elroy Florian MD SUBJECTIVE: The patient is lying in bed. No acute distress noted. No overnight events reported. Wore a BiPAP machine last night. The patient does report having some abdominal pain, medicated by nursing staff. No headache, rhinitis, cough, shortness of breath, chest pain, nausea, vomiting, diarrhea, leg pain or leg swelling reported. PHYSICAL EXAMINATION: GENERAL: No acute distress. VITAL SIGNS: Blood pressure 142/61, pulse 80, temperature 98.1 and oxygen saturation 96%. HEENT: Moist mucous membranes. Crowded airway. Mallampati score of 4. NECK: Supple. No JVD. LUNGS: Few rhonchi bilaterally. CARDIOVASCULAR: S1 and S2 audible. ABDOMEN: Soft. Colostomy bag to right side of abdomen with soft stool. Surgical site to left side of abdomen with dressing in place. EXTREMITIES: +1 bilateral lower extremity edema. NEUROLOGIC: Awake, alert, verbal. MEDICATIONS: Reviewed. Tylenol 650 mg every 4 hours p.r.n. for mild pain, DuoNeb 3 mL inhalation every 2 hours p.r.n., DuoNeb 3 mL inhalation every 6 hours, Norvasc 10 mg p.o. daily, Eliquis 2.5 mg twice a day, Brovana 15 mcg every 12 hours, aspirin 81 mg p.o. daily, Lipitor 20 mg at bedtime, Pulmicort 0.5 mg inhalation every 12 hours, cefepime 1 g daily, Klonopin 0.5 mg twice a day p.r.n., clonidine patch 0.3 mg every 7 days, Aranesp 150 mcg subcutaneous weekly, Colace 100 mg three times a day, ergocalciferol 50,000 units every 7 days, ferrous gluconate 324 mg p.o. daily, Diflucan 100 mg p.o. daily, hydralazine 100 mg three times a day, Levemir 20 units at bedtime, Humulin R sliding scale, isosorbide mononitrate 60 mg daily, labetalol 300 mg every 8 hours, Synthroid 50 mcg daily, magnesium oxide 400 mg twice a day, multivitamin 1 tab daily, Procardia 600 mg in the evening, nystatin topically three times a day to affected area, Zofran 4 mg IV push every 4 hours p.r.n., Protonix 20 mg in the evening, Lyrica 50 mg twice a day, Risperdal 0.5 mg at bedtime, saliva substitute five times a day p.r.n., Silvadene topically to affected area twice a day, simethicone 80 mg at bedtime as needed, sodium chloride 1000 mL at 100 mL per hour IV and Nephro-Holland one tab daily. LABORATORY DATA: Reviewed. WBC 7.0, RBC 2.8, hemoglobin 7.8, hematocrit 26.2 and platelets 333. Sodium 138, potassium 5.1, chloride 107, carbon dioxide is 25, anion gap 11, BUN 67, creatinine 3.4, GFR 14, random glucose 108. Calcium 7.1, phosphorus 7.3, magnesium 1.4. Total bilirubin 0.3, AST 25, ALT 15, alkaline phosphatase 120, total protein 6.2, albumin 2.3, globulin 3.9 and albumin-globulin ratio of 0.6. IMPRESSION AND PLAN: Status post laparotomy for small bowel obstruction, hernia repair and relocation of colostomy, hypoventilation syndrome, sleep apnea syndrome, carbon dioxide retention, hypoxemia, history of pulmonary embolism and deep venous thrombosis, diabetes, chronic lung disease, pulmonary hypertension, mesh infection, abdominal wound with Celsa. Pulmonary point of view, continue bilevel positive airway pressure use at bedtime, sleep apnea precaution. Head of bed elevated at 45 degrees. Deep venous thrombosis prophylaxis and gastric prophylaxis. Pain management. Continue consult with Infectious Disease and surgical followup. This patient was seen and examined with Dr. Ayala. Discussed assessment and plan as described above. Thank you for this consult and we will follow with you. Breezy Schafer APN Pamela Ayala MD
--- NOTE | 2018-05-23 13:37 | CP.PCM.PN ---
Subjective - Date & Time of Evaluation Date of Evaluation: 05/23/18 Time of Evaluation: 13:33 - Subjective Subjective: Nephrology Consultation Note: Assessment: worsening SHELBI ? pre-renal/ATN versus AIN as also with peripheral eosinophilia hypomag, hyperphosphatemia SBO s/p ex lap with ? MESH infection AMS, delirium left adrenal adenoma, Rt renal hyperdense cyst chronic hypercapnic respi failure Diabetic chronic Kidney Disease (E11.22) Hypertensive Chronic Kidney Disease (I12.9) Chronic Kidney Disease (N18.3) Stage 3 with 2.4 gm proteinuria (R80.9) likely due to DM/HTN/Obesity Anemia Vit D def morbid obesity, CAD s/p stent, COPD/SUMMER, rectal ca s/p colostomy Plan No acute need for renal replacement therapy at this time. will need close follow up on renal fxn HTN control on multiple meds. stopped lopressor as pt already on labetalol. consider to d/c clonidine as well Monitor Input/Output, daily weights and renal function with basic metabolic panel PRBC as needed. d/w heme and okay to use KAVYA from heme perspective. on weekly aransep supplement lytes as needed hold lasix. continue with IVF medical management of hyperkalemia as ordered check urine eso and renal sono d/w ID re; concerns for AIN, eosinophilia and antibiotics Adrenal adenoma work up with plasma renin/aldosterone, plasma metanephrine NEGATIVE. outpt 1 mg dexa suppression test repeat renal sono in 6 months to assess her Rt renal cyst Dose meds/antibiotics for reduced GFR. Avoid fleets enema/magnesium based laxatives. Avoid nephrotoxins/NSAIDs/ iodinated contrast (unless needed emergently) Glycemic control Further work up/management as per primary team Thanks for allowing me to participate in care of your patient. Will follow patient with you. Please call if any Qs. had d/w team Dr Dae Dawn Office: [phone] Chief Complaint;AMS Reason for consult: Acute Kidney Injury, CKD 3 HPI: Pt is a 62 F with hx of diabetes Mellitus (15 years), hypertension (years), CKD 3 with baseline cr 1.2-1.3 recently admitted after complicated abdominal surgery that represents w/ abdominal pain. Was recommended to get mesh removed last admission but refusing and still refusing per surgical service. She does not know why she is in the hospital. She denies n/v. She endorses reduced po intake. ROS: pt not able to provide. she is delirious Physical Examination: General Appearance: uncomfortable, morbidly obese. Vitals reviewed and noted as below Head; Atraumatic, normocephalic ENT: dry mucosa EYES: Pupils are equal, round and reactive to light accommodation. Eye muscles and extraocular movement intact. Sclera is anicteric. Neck; supple no lymphadenopathy, no thyromegaly or bruit Lungs: Normal respiratory rate/effort. Breath sounds bilateral equal, diminished at bases but overall limited exam due to her obesity Heart: normal rate. s1s2 normal. No rub or gallop. Extremities: 1+ edema, non pitting lymphedema as well. No varicose veins Neurological: Patient is confused Skin: Warm and dry. Normal turgor. No rash. Palpitation: Normal elasticity for age Abdomen: Abdomen is + colostomy. midline donita + Psych: deferred MSK: no joint tenderness or swelling. Digits and nails normal, no deformity : kidney or bladder not palpable. has linares Labs/imaging reviewed. Past medical history, past surgical history, family history, social history, allergy reviewed and noted as below Family hx: no hx of CKD. Rest non-contributory Objective - Vital Signs/Intake and Output Vital Signs (last 24 hours): Temp Pulse Resp BP Pulse Ox 98.1 F 78 24 148/59 L 96 05/23/18 06:00 05/23/18 13:01 05/23/18 06:00 05/23/18 13:01 05/23/18 06:00 - Medications Medications: Current Medications Acetaminophen (Tylenol 325mg Tab) 650 mg PO Q4H PRN PRN Reason: Pain, Mild (1-3) Last Admin: 05/23/18 04:42 Dose: 650 mg Albuterol/Ipratropium (Duoneb 3 Mg/0.5 Mg (3 Ml) Ud) 3 ml IH [id number] Last Admin: 05/23/18 13:18 Dose: Not Given Albuterol/Ipratropium (Duoneb 3 Mg/0.5 Mg (3 Ml) Ud) 3 ml IH Q2H PRN PRN Reason: Shortness of Breath Amlodipine Besylate (Norvasc) 10 mg PO DAILY [facility] Last Admin: 05/23/18 10:32 Dose: 10 mg Apixaban (Eliquis) 2.5 mg PO BID [facility]; Protocol Last Admin: 05/23/18 10:29 Dose: 2.5 mg Arformoterol Tartrate (Brovana) 15 mcg IH [id number] [facility] Last Admin: 05/23/18 07:44 Dose: Not Given Aspirin (Ecotrin) 81 mg PO DAILY [facility] Last Admin: 05/23/18 10:29 Dose: 81 mg Atorvastatin Calcium (Lipitor) 20 mg PO HS [facility] Last Admin: 05/22/18 21:47 Dose: 20 mg Budesonide (Pulmicort Respules) 0.5 mg IH [id number] [facility] Last Admin: 05/23/18 07:44 Dose: Not Given Clonazepam (Klonopin) 0.5 mg PO BID PRN; Protocol PRN Reason: Anxiety Last Admin: 05/23/18 11:59 Dose: 0.5 mg Clonidine HCl (Catapres-Tts3 0.3 Mg/24 Hr) 1 patch TD Q7D@1000 [facility] Last Admin: 05/18/18 11:06 Dose: 1 patch Darbepoetin Timothy (Aranesp) 150 mcg SC QWK [facility] Last Admin: 05/21/18 09:55 Dose: 150 mcg Docusate Sodium (Colace) 100 mg PO TID [facility] Last Admin: 05/23/18 13:01 Dose: 100 mg Ergocalciferol (Drisdol 50,000 Intl Units Cap) 1 cap PO Q7D [facility] Last Admin: 05/18/18 23:00 Dose: Not Given Ferrous Gluconate (Fergon) 324 mg PO DAILY [facility] Last Admin: 05/23/18 10:42 Dose: 324 mg Fluconazole (Diflucan) 100 mg PO DAILY [facility]; Protocol Stop: 05/28/18 10:01 Last Admin: 05/23/18 10:29 Dose: 100 mg Hydralazine HCl (Apresoline) 100 mg PO TID [facility] Last Admin: 05/23/18 13:01 Dose: 100 mg Sodium Chloride (Sodium Chloride 0.45%) 1,000 mls @ 100 mls/hr IV .Q10H [facility] Last Admin: 05/23/18 10:35 Dose: 100 mls/hr Cefepime HCl (Maxipime 1gm) 1 gm in 100 mls @ 100 mls/hr IVPB DAILY [facility]; Protocol Last Admin: 05/23/18 10:31 Dose: 100 mls/hr Insulin Detemir (Levemir) 20 unit SC [facility] Last Admin: 05/22/18 21:56 Dose: Not Given Insulin Human Regular (Humulin R Low) 0 units SC [facility]; Protocol Last Admin: 05/23/18 11:38 Dose: Not Given Isosorbide Mononitrate (Imdur) 60 mg PO DAILY [facility] Last Admin: 05/23/18 10:30 Dose: 60 mg Labetalol HCl (Trandate) 300 mg PO Q8 [facility] Last Admin: 05/23/18 13:00 Dose: 300 mg Levothyroxine Sodium (Synthroid) 50 mcg PO 0600 [facility] Last Admin: 05/23/18 06:33 Dose: 50 mcg Magnesium Oxide (Mag-Ox) 400 mg PO BID [facility] Last Admin: 05/23/18 10:30 Dose: 400 mg Multivitamins (Thera Tab) 1 tab PO 0800 [facility] Nifedipine (Procardia Xl) 60 mg PO QPM [facility] Last Admin: 05/22/18 18:11 Dose: 60 mg Nystatin (Nystop Topical Powder) 0 gm TOP TID [facility] Last Admin: 05/23/18 10:34 Dose: 25 applic Ondansetron HCl (Zofran Inj) 4 mg IVP Q4H PRN PRN Reason: Nausea/Vomiting Pantoprazole Sodium (Protonix Ec Tab) 20 mg PO ACB [facility] Last Admin: 05/23/18 10:34 Dose: 20 mg Pregabalin (Lyrica) 50 mg PO BID [facility] Last Admin: 05/23/18 10:36 Dose: 50 mg Risperidone (Risperdal Tab) 0.5 mg PO [facility]; Protocol Last Admin: 05/22/18 21:47 Dose: 0.5 mg Saliva Substitute (Saliva Substitute) 0 ml PO 5XD PRN PRN Reason: DRY MOUTH Sevelamer HCl (Renagel) 800 mg PO TID [facility] Silver Sulfadiazine (Silvadene 1% 25 Gm) 0 gm TP BID [facility] Last Admin: 05/23/18 10:35 Dose: 25 gm Simethicone (Mylicon Chew Tab) 80 mg PO PCHS PRN PRN Reason: GI distress Vitamin B Complex/Vit C/Folic Acid (Nephro-Holland) 1 tab PO 0800 JR Last Admin: 05/23/18 10:41 Dose: 1 tab - Labs Labs: 05/23/18 11:30 05/23/18 06:50 PT 15.0 SECONDS (9.4-12.5) H 05/11/18 13:45 INR 1.30 05/11/18 13:45 APTT 20.4 Seconds (25.1-36.5) L 05/11/18 13:45
--- NOTE | 2018-05-23 14:18 | US ---
Date of service: 05/23/2018 PROCEDURE: Ultrasound of the Kidneys HISTORY: SHELBI COMPARISON: 09/11/2017. TECHNIQUE: Sonogram of the kidneys. FINDINGS: RIGHT KIDNEY: Measures: 11.93 x 4.87 x 5.81 cm. Normal in size, contour and echogenicity. No stone, solid mass lesion or hydronephrosis visualized. LEFT KIDNEY: Measures: 10.78 x 5.83 by 5.42 cm. Normal in size, contour and echogenicity. No stone, solid mass lesion or hydronephrosis visualized. OTHER FINDINGS: None. IMPRESSION: Unremarkable renal sonogram.
--- NOTE | 2018-05-23 14:28 | PN ---
DATE: 05/22/2018 SUBJECTIVE: The patient is still complaining of generalized weakness, uncomfortable, but there is no pain. PHYSICAL EXAMINATION: VITAL SIGNS: Temperature 99, heart rate 86, blood pressure 164/72, respirations 21, and saturating 97% on room air. HEAD AND NECK: Normal. No JVD and no thyromegaly. CHEST: Bilaterally clear. CARDIAC: First sound and second sounds are normal. ABDOMEN: Soft, obese and nontender. There is a colostomy on the right side. The midline incision is almost dry. NEUROLOGIC: She moves her upper and lower extremities. She states she is normal. LABORATORY DATA: Done on 05/22/2018, sodium 139, potassium 5, chloride 108, bicarb 25, BUN 66, creatinine is 3.3, blood sugar is 107, calcium 7.5. Liver function test is normal. Also, her labs CBC; white count 6.7, hemoglobin 8.1, hematocrit 20.4, and platelets 360. Her urine cultures came negative. Her repeat blood cultures came back also negative. IMPRESSION AND PLAN: 1. Generalized weakness, multifactorial, in rehab. 2. Hyperkalemia treated, repeating labs next day. 3. Acute worsening of renal failure. We will give IV fluid. She still on IV fluid. Her BUN is 66, creatinine 3.3. We will monitor with semiconductor lab technician. 4. Obstructive sleep apnea, pulmonary hypertension, chronic obstructive pulmonary disease, morbid obesity. Continue BiPAP. 5. Hypertension, difficult to control. Continue the blood pressure medication. She takes multiple blood pressure medications. 6. Anxiety. She get panic attacks. Continue the current medication, Klonopin and Risperdal, seen by psychiatrists and Dr. Mendoza. We will follow up on that. Continue current therapy. Follow up clinically. Repeat labs in the morning. Elroy Florian MD
--- NOTE | 2018-05-23 16:15 | PN ---
DATE: 05/23/2018 REASON FOR CONSULTATION: Cardiac evaluation, history of congestive heart failure, transferred from group home due to lethargy. The patient denies any chest pain, shortness of breath, any new palpitations, but the patient screams off and on complaining of back pain. This note is in addition to dictated by our nurse practitioner, Tiffanie Osborne. LABORATORY DATA: The patient's hemoglobin today 8.1, hematocrit 26.4. BUN is 16, creatinine is 3.3. IMPRESSION: A 62-year-old female with past medical history significant for coronary artery disease status post in the past, DVT PE, history of small-bowel obstruction, history of exploratory laparotomy 04/16/2018 at [place] with altered mental status, history of rectal cancer status post colostomy the patient went into acute renal failure on intravenous hydration, poor oral intake. RECOMMENDATIONS: Continue intravenous hydration. Continue to avoid all nephrotoxic medication. Continue clonidine patch. We will start iron and multivitamin supplement for anemia. We will follow with you. Overall, the patient's condition is critical. Long-term prognosis is guarded, needs long-term extended care facility for transfer. We will put some multivitamin as well as iron preparation. Monitor hemoglobin and hematocrit. If hemoglobin goes below 7, consider packed red blood cells transfusion. We will put type and cross match for tomorrow blood drawn. Repeat blood tomorrow. If the hemoglobin count is still below 8 tomorrow, we will transfuse. Thank you Dr. Florian for providing us the opportunity in taking care of the patient, Pedro Guevara. Pamela Guerrero MD
[2018-05-23 17:39] LABS: FOLATE > 20.0 ng/mL
[2018-05-23] MEDS: NIFEdipine 60 mg ER Tab PO SCH (18:45)
[2018-05-23] MEDS: Insulin Detemir 100 units/ml Vial (Levemir) SC SCH (22:38)
[2018-05-24] MEDS: Insulin Reg-LOW-Coverage SC SCH ×6 (00:37→21:31)
[2018-05-24] MEDS: Albuterol-Ipratrop 3 mg / 0.5 (3 ml) UD IH SCH ×3 (01:53→13:18)
[2018-05-24] MEDS: Levothyroxine 50 MCG TAB PO SCH (06:45)
--- NOTE | 2018-05-24 07:09 | CON ---
DATE OF CONSULTATION: 05/23/2018 REFERRING PHYSICIAN: Dr. Faye CHIEF COMPLAINT: Anemia. HISTORY OF PRESENT ILLNESS: The patient is a 62-year-old female, seen lying, confused in bed, status post hernia repair with revision of colostomy with history of non-ST elevated NM, pulmonary hypertension, history of PE and DVT, on anticoagulation, with a previous history of rectal cancer. At present, she is anemic with requested evaluation from her primary, Dr. Florian, for a hemoglobin of 7.[address] Faye recommended a transfusion as she has a cardiac history also. At present, she is lying awake, answering questions vaguely, lying in a semi-sitting position, but appears in no acute distress, appearing somewhat confused. PAST MEDICAL HISTORY: Significant for rectal cancer with colostomy recently revised, diabetes mellitus, intractable pain, hypercoagulable state, history of pulmonary embolism, DVT, CHF, morbid obesity, status post vena cava filter placement, pulmonary hypertension, chronic renal disease, recent NM, sepsis secondary to left medial thigh abscess, unresectable carcinoma of the rectum, anemia of chronic disease and sleep apnea on BiPAP. FAMILY HISTORY AND SOCIAL HISTORY: Nonsmoker, non-ethanolic, otherwise noncontributory. MEDICATIONS: The patient's medications at this time include saline at 100 mL an hour IV, hydralazine 100 mg t.i.d., Aranesp 150 mcg subcu weekly, Ativan 1 mg given for agitation one time, Brovana every 12 hours, Catapres patch 0.3 mg every 7 days, Colace 100 t.i.d., vitamin D 50,000 units weekly, DuoNeb every 6 hours ordered and every 2 hours p.r.n., Ecotrin 81 mg daily, Eliquis 2.5 mg twice a day, ferrous gluconate 325 mg a day, insulin sliding scale 4 times a day, Imdur 60 mg daily, Klonopin 0.5 twice a day p.r.n., Levemir insulin 20 units at bedtime, Lipitor 20 mg at bedtime, Lyrica 50 mg twice a day, mag oxide 400 mg twice a day, simethicone 80 mg at bedtime p.r.n., vitamin B and C complex once a day, Norvasc 10 mg a day, nystatin powder t.i.d., nifedipine 60 mg once a day, Protonix 20 mg once a day, Pulmicort every 12 hours inhalation, Renagel 800 mg three times a day, Risperdal 0.5 at bedtime, saliva substitute 5 times a day, Silvadene cream topical twice a day, Synthroid 50 mcg once a day, multivitamin once a day, labetalol 300 mg every 8 hours, Tylenol p.r.n. and Zofran IV 4 mg every 4 hours p.r.n. ALLERGIES: NO KNOWN ALLERGIES. REVIEW OF SYSTEMS: A 12-point review of systems was reviewed, which was negative to questioning except for items mentioned in the history of present illness with the patient being a poor historian. PHYSICAL EXAMINATION: HEENT: Unremarkable. Tongue is moist and midline. NECK: Supple. HEART: Regular rate. LUNGS: Decreased breath sounds bilaterally due to body habitus. ABDOMEN: Morbidly obese with dressing on the left lateral abdomen with viable colostomy noted. EXTREMITIES: Chronic +1 edema of the feet. NEUROLOGIC: Awake, alert, but confused and lethargic. SKIN: Warm and dry with report of early decubitus. LABORATORY DATA: The patient's labs were done. White blood cell count of 7.0, hemoglobin of 7.8 on a repeat with an early version of 7.7, hematocrit 26.2, platelet count of 333,000. Her INR on 05/11/2018 was 1.3 with a chem metabolic panel showing a potassium of 5.1 from today, BUN of 67, creatinine of 3.4. On admission, the patient's BUN was 50 with a creatinine of 1.4. Her troponin was elevated at that time at 0.15 with a B-natriuretic peptide of 25,900. The patient's other testing included a calcium of 7.1 this morning, phosphorus 7.3, magnesium 1.4, non-fasting glucose of 119, albumin of 2.3. Urinalysis from two days prior showed a moderate amount of bilirubin, large amount of blood, positive nitrite, urine protein greater than 300. The patient did have a CAT scan of her head done two days prior, it was read as no acute hemorrhage. She had a renal ultrasound done two days prior, it was read as unremarkable renal sonogram. Chest x-ray was done six days prior, it was read as improving CHF and pulmonary vascular congestion. The CAT scan of her abdomen and pelvis done on 05/11/2018. Midline ostomies are seen. Surgical clips were seen on the left side of the abdomen. There is soft tissue thickening in the presacral space. No change from recent exam. ASSESSMENT: Symptomatic anemia; acute renal failure, prerenal?; electrolyte imbalance; history of deep venous thrombosis and pulmonary embolism, on anticoagulation; morbid obesity; diabetes mellitus; hypertension; sacral decubitus; sleep apnea; status post vena cava filter placement; history of recent myocardial infarction; history of sepsis secondary to medial thigh abscess; history of unresectable carcinoma with colostomy. PLAN: Plan for this patient, after conversation with Dr. Faye, is to transfuse 2 units of packed red blood cells only if okay with her renal mainframe consultant, Dr. Dawn, as upon reading his note, Lasix is on hold with 1 unit hopefully be transfused tonight with additional unit tomorrow to correct her anemic indices. Further recommendations as per mainframe consultant's recommendations with further workup as per Dr. Faye's recommendation. We will also monitor her clinically as indicated. Her most recent iron percent saturation on 05/06/2018 was 20% with a TIBC of 119 done earlier today. This is a complex patient with a comprehensive medically necessary and appropriate visit carried out in excess of 40 minutes with the patient's evaluation also discussed with nursing staff as the patient is confused at this time. Zuhair Herrera MD
[2018-05-24] MEDS: Arformoterol 15 mcg/2 ml Inh Sol IH SCH (07:19)
[2018-05-24] MEDS: Budesonide 0.5 mg/2 ml Inhal Susp UD IH SCH (07:19)
[2018-05-24 07:49] LABS: BASO # 0.02 K/mm3 (0.0-2.0); BASO % 0.3 % (0.0-3.0); EOS % 0.6 % (1.5-5.0); GRAN # 5.25 (1.4-6.5); GRAN % 80.2 % (50.0-68.0); HEMOGLOBIN 8.9 g/dL (12.0-16.0); LYMPH # 1.2 (1.2-3.4); LYMPH % 17.7 % (22.0-35.0); MEAN CELL VOLUME 91.7 fl (80.0-105.0); MEAN CORPUSCULAR HEMOGLOBIN 27.3 pg (25.0-35.0); MEAN CORPUSCULAR HGB CONC 29.8 g/dl (31.0-37.0); MEAN PLATELET VOLUME 10.2 fl (7.0-11.0); MONO # 0.1 (0.1-0.6); MONO % 1.2 % (1.0-6.0); RBC 3.26 10^6/uL (3.5-6.1); RED CELL DISTRIBUTION WIDTH 18.5 % (11.5-14.5); WHITE BLOOD COUNT 6.6 10^3/uL (4.5-11.0)
[2018-05-24] MEDS ORDERED: Sod Polystyrene Sulf 15 gm/60 ml Susp PO ONE (08:32)
--- NOTE | 2018-05-24 08:54 | PN ---
DATE: 05/23/2018 IDENTIFYING INFORMATION: The patient is a 62-year-old [place] female who is problematic in her behavioral management and that she is poorly communicative even with the assistance of a sludge control operator (Swedish) and who cries out not necessarily for any particular precipitants such as pain. She is psychotropically receiving Klonopin 0.5 mg b.i.d. and was started on Risperdal 0.5 mg at bedtime last evening, but thus far without noticeable effect in redirecting her problematic behavior. The patient did calm down when she was given Tylenol instead of Dilaudid earlier. Medically, she has an unresectable cancer of the colon, had abdominal surgery on 04/21 with a probable infection involving the mesh in place during the surgery, nurse practitioner's notes reviewed. Presently, the patient's hemoglobin is 7.8, hematocrit 26.2. Blood glucose 101, BUN elevated at 67, creatinine elevated at 3.4, potassium elevated at 5.1. Calcium is 7.1, magnesium 1.4 with elevated phosphorus of 7.3. Eusebio Mendoza MD/ PhD
[2018-05-24] MEDS: Pantoprazole 20 mg EC Tab PO SCH (08:57)
[2018-05-24] MEDS: Multivitamin Vitamin B Complex (Nephro-Vite) Tab PO SCH (08:58)
[2018-05-24] MEDS: Multivitamin Therapeutic Tab PO SCH (08:58)
--- NOTE | 2018-05-24 08:59 | PN ---
DATE: 05/21/2018 SUBJECTIVE: She complained that she is weak, not able to get up, which has been for the last admission. Please be advised this is the note for 05/21/2018. The patient will have the physical examination. She does not seem to be in respiratory distress. She does have difficulty getting or moving in the bed from side to side because of her morbid obesity. PHYSICAL EXAMINATION: VITAL SIGNS: Temperature 97.5, heart rate 89, blood pressure 110/52, and respirations 20. HEAD AND NECK: Normal. No JVD. No thyromegaly. CHEST: Clear bilateral. CARDIAC: First sound and second sounds are normal. ABDOMEN: She has midline incisions covered. She has right side colostomy. Her belly is nontender. EXTREMITIES: No edema. NEUROLOGICAL: She is generally very weak and both proximal muscle weakness in both upper and lower. LABORATORY DATA: On 05/21/2018, her laboratory shows white count 8.3, hemoglobin 8.7, hematocrit 30.1, and platelets 447. Chemistry shows sodium 139, potassium 5.8, chloride 106, bicarb 26, BUN 66, creatinine 3, blood sugar 127, calcium 8.1, phosphorus 6.7, AST 45, ALT 16, alk phos 145, TSH is 0.62, which is normal. IMPRESSION AND PLAN: 1. Generalized severe weakness, multifactorial. The patient will need a good rehab. The patient has underlying multiple medical problem contributing to her weakness. We will get a neurology consult by Dr. Berger. The patient also had a CT of the head, which is negative. The patient has also body mass index of 56.4, which is difficult to move the patient and she needs inpatient physical therapy. She needs to be discharged to rehab unit when she is improved. 2. Acute worsening of kidney injury. We will hold off on Lasix, intravenous fluids. Dr. Dae Dawn is the renal consult. We will follow up in that and monitor her urine output. She has a dark urine. 3. Diabetes, hypertension. Continue current medications. 4. Morbid obesity, obstructive sleep apnea. Continue bilevel positive airway pressure. 5. Sacral decubitus stage 2. Continue local wound therapy. The patient is moving from side to side. Continue current therapy. Monitor labs and follow up with the b2b sales consultant. Elroy Florian MD [facility] # [id number]
[2018-05-24] MEDS: Magnesium Oxide 400 mg Tab UD PO SCH ×2 (09:01→18:30)
[2018-05-24] MEDS: MethylPREDNISolone 40 mg Vial IVP SCH ×2 (09:02→21:21)
[2018-05-24] MEDS: Nystatin 100,000 Units/gm Topical Pow(15 gm) TOP SCH ×3 (09:13→18:32)
[2018-05-24] MEDS: Silver Sulfadiazine 1% Cream (25 gm) TP SCH ×2 (09:13→18:31)
[2018-05-24] MEDS: Sodium Chloride 0.45% 1,000 ML IV SCH (09:14)
--- NOTE | 2018-05-24 09:44 | CP.PCM.APN ---
Subjective - Date & Time of Evaluation Date of Evaluation: 05/24/18 Time of Evaluation: 09:25 - Subjective Subjective: pt seen and examined at bedside pt alert , offers no comprehensible complaints, yells in English Review of Systems - Review of Systems Systems not reviewed;Unavailable: Uncooperative Objective - Vital Signs/Intake and Output Vital Signs (last 24 hours): Temp Pulse Resp BP Pulse Ox 98.7 F 83 20 139/63 97 05/24/18 02:21 05/24/18 09:00 05/24/18 02:21 05/24/18 09:01 05/23/18 22:35 Intake and Output: 05/24/18 05/24/18 06:59 18:59 Intake Total 640 Output Total 250 Balance 390 - Medications Medications: Current Medications Acetaminophen (Tylenol 325mg Tab) 650 mg PO Q4H PRN PRN Reason: Pain, Mild (1-3) Last Admin: 05/23/18 04:42 Dose: 650 mg Albuterol/Ipratropium (Duoneb 3 Mg/0.5 Mg (3 Ml) Ud) 3 ml IH [id number] [facility] Last Admin: 05/24/18 07:19 Dose: 3 ml Albuterol/Ipratropium (Duoneb 3 Mg/0.5 Mg (3 Ml) Ud) 3 ml IH Q2H PRN PRN Reason: Shortness of Breath Amlodipine Besylate (Norvasc) 10 mg PO DAILY [facility] Last Admin: 05/24/18 09:01 Dose: 10 mg Apixaban (Eliquis) 2.5 mg PO BID [facility]; Protocol Last Admin: 05/23/18 18:46 Dose: 2.5 mg Arformoterol Tartrate (Brovana) 15 mcg IH [id number] [facility] Last Admin: 05/24/18 07:19 Dose: 15 mcg Aspirin (Ecotrin) 81 mg PO DAILY [facility] Last Admin: 05/24/18 09:01 Dose: 81 mg Atorvastatin Calcium (Lipitor) 20 mg PO HS [facility] Last Admin: 05/23/18 22:47 Dose: 20 mg Budesonide (Pulmicort Respules) 0.5 mg IH [id number] [facility] Last Admin: 05/24/18 07:19 Dose: 0.5 mg Clonazepam (Klonopin) 0.5 mg PO BID PRN; Protocol PRN Reason: Anxiety Last Admin: 05/23/18 11:59 Dose: 0.5 mg Clonidine HCl (Catapres-Tts3 0.3 Mg/24 Hr) 1 patch TD Q7D@1000 [facility] Last Admin: 05/18/18 11:06 Dose: 1 patch Darbepoetin Timothy (Aranesp) 150 mcg SC QWK [facility] Last Admin: 05/21/18 09:55 Dose: 150 mcg Docusate Sodium (Colace) 100 mg PO TID [facility] Last Admin: 05/24/18 09:01 Dose: 100 mg Ergocalciferol (Drisdol 50,000 Intl Units Cap) 1 cap PO Q7D [facility] Last Admin: 05/18/18 23:00 Dose: Not Given Ferrous Gluconate (Fergon) 324 mg PO DAILY [facility] Last Admin: 05/24/18 09:01 Dose: 324 mg Hydralazine HCl (Apresoline) 100 mg PO TID [facility] Last Admin: 05/24/18 09:00 Dose: 100 mg Sodium Chloride (Sodium Chloride 0.45%) 1,000 mls @ 100 mls/hr IV .Q10H [facility] Last Admin: 05/24/18 09:14 Dose: 100 mls/hr Insulin Detemir (Levemir) 20 unit SC HS [facility] Last Admin: 05/23/18 22:38 Dose: Not Given Insulin Human Regular (Humulin R Low) 0 units SC ACHS [facility]; Protocol Last Admin: 05/24/18 07:30 Dose: 1 unit Isosorbide Mononitrate (Imdur) 60 mg PO DAILY [facility] Last Admin: 05/24/18 09:01 Dose: 60 mg Labetalol HCl (Trandate) 300 mg PO Q8 [facility] Last Admin: 05/24/18 06:45 Dose: 300 mg Levothyroxine Sodium (Synthroid) 50 mcg PO 0600 [facility] Last Admin: 05/24/18 06:45 Dose: 50 mcg Magnesium Oxide (Mag-Ox) 400 mg PO BID [facility] Last Admin: 05/24/18 09:01 Dose: 400 mg Methylprednisolone (Solu-Medrol) 40 mg IVP Q12 [facility] Last Admin: 05/24/18 09:02 Dose: 40 mg Multivitamins (Thera Tab) 1 tab PO 0800 [facility] Last Admin: 05/24/18 08:58 Dose: 1 tab Nifedipine (Procardia Xl) 60 mg PO QPM [facility] Last Admin: 05/23/18 18:45 Dose: 60 mg Nystatin (Nystop Topical Powder) 0 gm TOP TID [facility] Last Admin: 05/24/18 09:13 Dose: 1 applic Ondansetron HCl (Zofran Inj) 4 mg IVP Q4H PRN PRN Reason: Nausea/Vomiting Pantoprazole Sodium (Protonix Ec Tab) 20 mg PO ACB [facility] Last Admin: 05/24/18 08:57 Dose: 20 mg Pregabalin (Lyrica) 50 mg PO BID [facility] Last Admin: 05/24/18 09:01 Dose: 50 mg Risperidone (Risperdal Tab) 0.5 mg PO HS [facility]; Protocol Last Admin: 05/23/18 22:47 Dose: 0.5 mg Saliva Substitute (Saliva Substitute) 0 ml PO 5XD PRN PRN Reason: DRY MOUTH Sevelamer HCl (Renagel) 800 mg PO TID [facility] Last Admin: 05/24/18 09:02 Dose: 800 mg Silver Sulfadiazine (Silvadene 1% 25 Gm) 0 gm TP BID [facility] Last Admin: 05/24/18 09:13 Dose: 25 gm Simethicone (Mylicon Chew Tab) 80 mg PO PCHS PRN PRN Reason: GI distress Vitamin B Complex/Vit C/Folic Acid (Nephro-Holland) 1 tab PO 0800 [facility] Last Admin: 05/24/18 08:58 Dose: 1 tab - Labs Labs: 05/24/18 07:15 05/24/18 07:15 PT 15.0 SECONDS (9.4-12.5) H 05/11/18 13:45 INR 1.30 05/11/18 13:45 APTT 20.4 Seconds (25.1-36.5) L 05/11/18 13:45 - Constitutional Appears: Non-toxic, No Acute Distress - Head Exam Head Exam: NORMAL INSPECTION, NORMOCEPHALIC - ENT Exam ENT Exam: Normal Exam - Neck Exam Neck Exam: Normal Inspection - Cardiovascular Exam Cardiovascular Exam: +S1, +S2 - GI/Abdominal Exam Additional comments: adb dsgs, donita in place, colostomy intact - Psychiatric Exam Psychiatric exam: Agitated - Skin Skin Exam: Dry, Intact Assessment and Plan - Assessment and Plan (Free Text) Plan: All Active Problems COPD (chronic obstructive pulmonary disease) (Acute) Congestive heart failure (Acute) Urinary tract infection (Acute) Abdominal pain (Acute) Abscess (Acute) Acute hypercapnic respiratory failure due to obstructive sleep apnea (Acute) Acute kidney injury (Acute) Acute pulmonary embolus (Acute) Cecgv-mt-vgyllzm kidney injury (Acute) Altered mental status (Acute) Anemia (Acute) Anemia of chronic disease (Acute) Back pain (Acute) Chronic kidney disease-mineral and bone disorder (Acute) Dehydration (Acute) Diastolic CHF (Acute) Hypercapnic respiratory failure, chronic (Acute) Hyperglycemia (Acute) Hypertension (Acute) Hypertensive chronic kidney disease (Acute) Intractable abdominal pain (Acute) Intractable vomiting (Acute) Leukocytosis (Acute) Nephrotic range proteinuria (Acute) Partial small bowel obstruction (Acute) Pneumonia (Acute) Proteinuria (Acute) Pulmonary edema (Acute) Rectal carcinoma (Acute) Renal failure (Acute) Renal failure (ARF), acute on chronic (Acute) Renal failure (ARF), acute on chronic (Acute) Renal insufficiency (Acute) Respiratory compromise (Acute) Respiratory distress (Acute) Sepsis (Acute) Tachycardia (Acute) A/P 62 yr old female with pmh sig for htn, hld, unresectable colon ca sbo s/p abd surgery 04/14/18 with probable infection involving the mesh placed during the surgery now brought to the [facility] from [facility] for lethargy and fever now being evaluated by ID for abd wall cellulitis with recent cultures may 03 showing pseudomons and c. famata, with additional abdominal wound and UC showing yeast species/ megan albicans per discussion with ID medications were changed to p.o. diflucan 100mg x 7 days total and iv maxipime x 7 days as recommended Pt with noted anemia yesterday 05/23, Heme onc consultation noted, pt is status post 1 unit prbc yesterday. pt still with noted hyperkalemia at 6.0 today s/p kayexalate, will discuss with renal ? kayexalate regimen every other day. dc plan remains NARA when medically stable will follow, spoke to Rn and sw. BPCI/TIC - BPCIA/TIC Educated pt/family on BPCIA/CIR/Med to Bed Programs: Yes Flyers given, including [facility] Beneficiary letter: Yes Pt/family verbalized understanding & agreed to program: Yes
--- NOTE | 2018-05-24 10:59 | PN ---
DATE: 05/23/2018 SUBJECTIVE: The patient is lying in bed. No respiratory distress. No physical pain. The patient feel weak, difficulty ambulation due to deconditioning and morbid obesity. Otherwise, the patient is talking, moving upper and lower extremities. PHYSICAL EXAMINATION: VITAL SIGNS: On 05/23/2018, temperature is 98.1, heart rate 81, blood pressure 142/51, respiration 18, and saturating 96% on 2 liters nasal cannula. HEAD AND NECK: Normal. No JVD. No thyromegaly. CHEST: Clear bilaterally. CARDIAC: First sound and second sound normal. ABDOMEN: Soft, large, obese with midline incision seems dry and right side colostomy. LABORATORY DATA: Study shows sodium 138, potassium 5.1, chloride 107, bicarb 25, BUN 67, creatinine 3.4, calcium 7.1, phosphorous 7.3 and magnesium 1.4. Her CBC shows white count 7, hemoglobin 7.7, hematocrit , platelet count of 333,000 and reticulocyte count 2.60. IMPRESSION: 1. Acute renal failure which got worse, etiology unclear. According to the Nephrology, it could be interstitial nephritis without urinary eosinophils and also high eosinophils according to him and it could be prerenal. I will continue intravenous fluids and we will monitor her urine output and electrolytes on a daily basis. 2. Generalized weakness, deconditioning. 3. Sacral decubitus, continue shifting [id number] and continue current treatment. 4. Abdominal wound infections, seems stable. 5. Diabetes, hypertension, coronary artery disease, right-sided heart failure, pulmonary hypertension, morbid obesity, hypercholesteremia, hypothyroidism, obstructive sleep apnea and chronic obstructive pulmonary disease. PLAN: Continue current treatment and we will follow up with the financial consultant. The patient has multifactorial and multiple medical problems. Prognosis is poor. Continue current therapy. We will see as a patient who has a kidney failure. The patient wants to go [facility] to be transferred, I have no objection to that. I gave the son to find the doctor and I will transfer her to [place] to the other hospital. Elroy Florian MD
--- NOTE | 2018-05-24 11:56 | CP.PCM.PN ---
Subjective - Date & Time of Evaluation Date of Evaluation: 05/24/18 Time of Evaluation: 11:52 - Subjective Subjective: Nephrology Consultation Note: Assessment: worsening SHELBI ? pre-renal/ATN versus AIN as also with peripheral eosinophilia and eosinolphiuria hypomag, hyperphosphatemia hyperkalemia SBO s/p ex lap with ? MESH infection AMS, delirium left adrenal adenoma, Rt renal hyperdense cyst chronic hypercapnic respi failure Diabetic chronic Kidney Disease (E11.22) Hypertensive Chronic Kidney Disease (I12.9) Chronic Kidney Disease (N18.3) Stage 3 with 2.4 gm proteinuria (R80.9) likely due to DM/HTN/Obesity Anemia Vit D def morbid obesity, CAD s/p stent, COPD/SUMMER, rectal ca s/p colostomy Plan No acute need for renal replacement therapy at this time. will need close follow up on renal fxn HTN control on multiple meds. stopped lopressor as pt already on labetalol. consider to d/c clonidine as well Monitor Input/Output, daily weights and renal function with basic metabolic panel PRBC as needed (please give washed PRBC to minimize k load). d/w heme and okay to use KAVYA from heme perspective. on weekly aransep supplement lytes as needed hold lasix. continue with IVF but lower to 60 ml/hr medical management of hyperkalemia as ordered d/w ID re; concerns for AIN, eosinophilia and antibiotics. had d/c abx pt started on steroids empirically but will be hesitant to give them more than few days due to her comorbidities and current clinical condition Adrenal adenoma work up with plasma renin/aldosterone, plasma metanephrine NEGATIVE. outpt 1 mg dexa suppression test repeat renal sono in 6 months to assess her Rt renal cyst Dose meds/antibiotics for reduced GFR. Avoid fleets enema/magnesium based laxatives. Avoid nephrotoxins/NSAIDs/ iodinated contrast (unless needed emergently) Glycemic control Further work up/management as per primary team overall prognosis poor. Thanks for allowing me to participate in care of your patient. Will follow patient with you. Please call if any Qs. had d/w team Dr Dae Dawn Office: [phone] Chief Complaint;AMS Reason for consult: Acute Kidney Injury, CKD 3 HPI: Pt is a 62 F with hx of diabetes Mellitus (15 years), hypertension (years), CKD 3 with baseline cr 1.2-1.3 recently admitted after complicated abdominal surgery that represents w/ abdominal pain. Was recommended to get mesh removed last admission but refusing and still refusing per surgical service. She does not know why she is in the hospital. She denies n/v. She endorses reduced po intake. ROS: pt not able to provide. she is delirious. Physical Examination: General Appearance: uncomfortable, morbidly obese. Vitals reviewed and noted as below Head; Atraumatic, normocephalic ENT: dry mucosa EYES: Pupils are equal, round and reactive to light accommodation. Eye muscles and extraocular movement intact. Sclera is anicteric. Neck; supple no lymphadenopathy, no thyromegaly or bruit Lungs: Normal respiratory rate/effort. Breath sounds bilateral equal, diminished at bases but overall limited exam due to her obesity Heart: normal rate. s1s2 normal. No rub or gallop. Extremities: 1+ edema, non pitting lymphedema as well. No varicose veins Neurological: Patient is confused Skin: Warm and dry. Normal turgor. No rash. Palpitation: Normal elasticity for age Abdomen: Abdomen is + colostomy. midline donita + Psych: deferred MSK: no joint tenderness or swelling. Digits and nails normal, no deformity : kidney or bladder not palpable. has linares Labs/imaging reviewed. Past medical history, past surgical history, family history, social history, allergy reviewed and noted as below Family hx: no hx of CKD. Rest non-contributory Objective - Vital Signs/Intake and Output Vital Signs (last 24 hours): Temp Pulse Resp BP Pulse Ox 98 F 83 20 139/63 97 05/24/18 06:00 05/24/18 09:00 05/24/18 06:00 05/24/18 09:01 05/24/18 06:00 Intake and Output: 05/24/18 05/24/18 06:59 18:59 Intake Total 640 Output Total 250 Balance 390 - Medications Medications: Current Medications Acetaminophen (Tylenol 325mg Tab) 650 mg PO Q4H PRN PRN Reason: Pain, Mild (1-3) Last Admin: 05/23/18 04:42 Dose: 650 mg Albuterol/Ipratropium (Duoneb 3 Mg/0.5 Mg (3 Ml) Ud) 3 ml IH [id number] [facility] Last Admin: 05/24/18 07:19 Dose: 3 ml Albuterol/Ipratropium (Duoneb 3 Mg/0.5 Mg (3 Ml) Ud) 3 ml IH Q2H PRN PRN Reason: Shortness of Breath Amlodipine Besylate (Norvasc) 10 mg PO DAILY [facility] Last Admin: 05/24/18 09:01 Dose: 10 mg Apixaban (Eliquis) 2.5 mg PO BID [facility]; Protocol Last Admin: 05/23/18 18:46 Dose: 2.5 mg Arformoterol Tartrate (Brovana) 15 mcg IH [id number] [facility] Last Admin: 05/24/18 07:19 Dose: 15 mcg Aspirin (Ecotrin) 81 mg PO DAILY [facility] Last Admin: 05/24/18 09:01 Dose: 81 mg Atorvastatin Calcium (Lipitor) 20 mg PO HS [facility] Last Admin: 05/23/18 22:47 Dose: 20 mg Budesonide (Pulmicort Respules) 0.5 mg IH [id number] [facility] Last Admin: 05/24/18 07:19 Dose: 0.5 mg Clonazepam (Klonopin) 0.5 mg PO BID PRN; Protocol PRN Reason: Anxiety Last Admin: 05/23/18 11:59 Dose: 0.5 mg Clonidine HCl (Catapres-Tts3 0.3 Mg/24 Hr) 1 patch TD Q7D@1000 [facility] Last Admin: 05/18/18 11:06 Dose: 1 patch Darbepoetin Timothy (Aranesp) 150 mcg SC QWK [facility] Last Admin: 05/21/18 09:55 Dose: 150 mcg Docusate Sodium (Colace) 100 mg PO TID [facility] Last Admin: 05/24/18 09:01 Dose: 100 mg Ergocalciferol (Drisdol 50,000 Intl Units Cap) 1 cap PO Q7D [facility] Last Admin: 05/18/18 23:00 Dose: Not Given Ferrous Gluconate (Fergon) 324 mg PO DAILY [facility] Last Admin: 05/24/18 09:01 Dose: 324 mg Hydralazine HCl (Apresoline) 100 mg PO TID [facility] Last Admin: 05/24/18 09:00 Dose: 100 mg Sodium Chloride (Sodium Chloride 0.45%) 1,000 mls @ 100 mls/hr IV .Q10H [facility] Last Admin: 05/24/18 09:14 Dose: 100 mls/hr Insulin Detemir (Levemir) 20 unit SC HS [facility] Last Admin: 05/23/18 22:38 Dose: Not Given Insulin Human Regular (Humulin R Low) 0 units SC ACHS [facility]; Protocol Last Admin: 05/24/18 07:30 Dose: 1 unit Isosorbide Mononitrate (Imdur) 60 mg PO DAILY [facility] Last Admin: 05/24/18 09:01 Dose: 60 mg Labetalol HCl (Trandate) 300 mg PO Q8 [facility] Last Admin: 05/24/18 06:45 Dose: 300 mg Levothyroxine Sodium (Synthroid) 50 mcg PO 0600 [facility] Last Admin: 05/24/18 06:45 Dose: 50 mcg Magnesium Oxide (Mag-Ox) 400 mg PO BID [facility] Last Admin: 05/24/18 09:01 Dose: 400 mg Methylprednisolone (Solu-Medrol) 40 mg IVP Q12 [facility] Last Admin: 05/24/18 09:02 Dose: 40 mg Multivitamins (Thera Tab) 1 tab PO 0800 [facility] Last Admin: 05/24/18 08:58 Dose: 1 tab Nifedipine (Procardia Xl) 60 mg PO QPM [facility] Last Admin: 05/23/18 18:45 Dose: 60 mg Nystatin (Nystop Topical Powder) 0 gm TOP TID [facility] Last Admin: 05/24/18 09:13 Dose: 1 applic Ondansetron HCl (Zofran Inj) 4 mg IVP Q4H PRN PRN Reason: Nausea/Vomiting Pantoprazole Sodium (Protonix Ec Tab) 20 mg PO ACB [facility] Last Admin: 05/24/18 08:57 Dose: 20 mg Pregabalin (Lyrica) 50 mg PO BID [facility] Last Admin: 05/24/18 09:01 Dose: 50 mg Risperidone (Risperdal Tab) 1 mg PO DAILY [facility]; Protocol Risperidone (Risperdal Tab) 1 mg PO HS [facility]; Protocol Saliva Substitute (Saliva Substitute) 0 ml PO 5XD PRN PRN Reason: DRY MOUTH Sevelamer HCl (Renagel) 800 mg PO TID [facility] Last Admin: 05/24/18 09:02 Dose: 800 mg Silver Sulfadiazine (Silvadene 1% 25 Gm) 0 gm TP BID [facility] Last Admin: 05/24/18 09:13 Dose: 25 gm Simethicone (Mylicon Chew Tab) [address] [facility] PRN PRN Reason: GI distress Vitamin B Complex/Vit C/Folic Acid (Nephro-Holland) 1 tab PO 0800 [facility] Last Admin: 05/24/18 08:58 Dose: 1 tab - Labs Labs: 05/24/18 07:15 05/24/18 07:15 PT 15.0 SECONDS (9.4-12.5) H 05/11/18 13:45 INR 1.30 05/11/18 13:45 APTT 20.4 Seconds (25.1-36.5) L 05/11/18 13:45
[2018-05-24] MEDS ORDERED: Sodium Chloride 0.45% 1,000 ML IV SCH (12:01)
[2018-05-24 12:07] LABS: HEMOGLOBIN 9.7 g/dL (12.0-16.0); MEAN CELL VOLUME 92.1 fl (80.0-105.0); MEAN CORPUSCULAR HEMOGLOBIN 28.3 pg (25.0-35.0); MEAN CORPUSCULAR HGB CONC 30.7 g/dl (31.0-37.0); MEAN PLATELET VOLUME 9.5 fl (7.0-11.0); RBC 3.43 10^6/uL (3.5-6.1); RED CELL DISTRIBUTION WIDTH 18.7 % (11.5-14.5); WHITE BLOOD COUNT 6.3 10^3/uL (4.5-11.0)
[2018-05-24 12:19] LABS: CALCIUM 7.3 mg/dL (8.4-10.5)
--- NOTE | 2018-05-24 12:20 | PN ---
PULMONARY PROGRESS NOTE DATE: 05/24/2018 REFERRING PHYSICIAN: Elroy Florian MD SUBJECTIVE: The patient in bed, yelling in Kazakh, on occasion speaking in Slovak, offers no real complaints. Denies pain when asked. No hemoptysis, hematosis, hematuria, diarrhea reported from staff. The patient noted with elevated potassium level, Kayexalate to be given. OBJECTIVE: GENERAL: No acute distress. VITAL SIGNS: Blood pressure 139/63, pulse 83, temperature 98 and oxygen saturation 97%. HEENT: Moist mucous membranes. Mallampati score of 4. Crowded airway. NECK: Supple. No JVD. LUNGS: Few rhonchi bilaterally. CARDIOVASCULAR: S1 and S2, audible. ABDOMEN: Soft, some tenderness on palpation. Colostomy with soft stool. Surgical site with dressing in place. EXTREMITIES: +1 bilateral lower extremity edema. NEUROLOGIC: Awake, alert and appears agitated. MEDICATIONS: Reviewed. Tylenol 650 mg every 4 hours p.r.n. for mild pain, DuoNeb 3 mL inhalation every 2 hours p.r.n., DuoNeb 3 mL inhalation every 6 hours, Norvasc 10 mg p.o. daily, Eliquis 2.5 mg twice a day, Brovana 15 mcg every 12 hours, aspirin 81 mg daily, Lipitor 20 mg at bedtime, Pulmicort 0.5 mg every 12 hours, Klonopin 0.5 mg twice a day, clonidine patch 0.3 mg every 7 days, Aranesp 150 mcg weekly, Colace 100 mg three times a day, ergocalciferol 1 cap every 7 days, ferrous gluconate 324 mg p.o. daily, hydralazine 100 mg three times a day, Levemir 20 units at bedtime, Humulin R sliding scale, isosorbide mononitrate 60 mg p.o. daily, labetalol 300 mg every 8 hours, Synthroid 50 mcg daily, magnesium oxide 400 mg twice a day, Solu-Medrol 40 mg every 12 hours, multivitamin 1 tab p.o. daily, Procardia XL 60 mg in the evening, nystatin topically three times a day to affected area, Zofran 4 mg IV push every 4 hours p.r.n., Protonix 20 mg in the evening, Lyrica 50 mg twice a day, Risperdal 0.5 mg at bedtime, saliva substitute five times a day p.r.n.,Renagel 800 mg three times a day, Silvadene topically to affected area twice a day, simethicone 80 mg p.r.n, sodium chloride 1000 mL at 100 mL per hour and Nephro-Holland one tab daily. LABORATORY DATA: Reviewed. WBC 6.6, RBC 3.26, hemoglobin 8.9, hematocrit 29.9 and platelets 350. Sodium 138, potassium 6, chloride 107, carbon dioxide is 21, anion gap 17, BUN 69, creatinine 3.7, GFR 12, random glucose 161, calcium 7, phosphorus 8.3 and magnesium 1.5. IMPRESSION AND PLAN: Status post laparotomy for small bowel obstruction, hernia repair and relocation of colostomy, sleep apnea syndrome, hypoventilation syndrome, carbon dioxide retention, hypoxemia, history of pulmonary embolism and deep venous thrombosis, chronic lung disease, diabetes, mesh infection, abdominal wound with Celsa and pulmonary hypertension. Pulmonary point of view, avoid nephro toxic drugs, continue intravenous fluids, continue bilevel positive airway pressure use at bedtime, and sleep apnea precaution, head of bed elevated at 45 degrees. Deep venous thrombosis prophylaxis and gastric prophylaxis. Pain management. Continue consult with Infectious Disease, Surgical team and Nephrology. Case discussed with nursing staff. This patient was seen and examined with Dr. Ayala. Discussed assessment and plan as described above. Thank you for this consult and we will follow with you. Breezy Schafer APN Pamela Ayala MD
[2018-05-24] MEDS: Morphine 2 mg/ml ISec IVP PRN (12:42)
--- NOTE | 2018-05-24 13:10 | PN ---
DATE: 05/24/2018 SUBJECTIVE: The patient is a 62-year-old Burkin[place] female who has been exhibiting problematic behavior that she cries out incessantly. Initially, it was thought this may be in relation to attempts at getting pain medication but such behavior appears autonomous of this goal. I have discussed her situation with her wizwrzij-[id number] and [id number]-[id number] at bedside and with nursing. The patient has exhibited a deteriorating mental state of impaired memory for approximately 3 years. This behavior of crying out has been going on for sometime but has worsened (but is not new). The patient's clinical presentation appears consonant with that of the behavioral disturbance in the context of a demented form disorder. The patient herself cannot explain why she is acting the way she does. Her past medical history includes COPD, congestive heart failure, urinary tract infection and abdominal pain. She has also had an abscess, sleep apnea, acute kidney injury, a pulmonary embolus, anemia, back pain, dehydration, hyperglycemia, hypertension, leukocytosis, proteinuria, history of rectal carcinoma, sepsis, tachycardia. OBJECTIVE: VITAL SIGNS: Blood pressure 139/63, pulse 83, temperature 98, respiratory rate 20. I have increased the patient's Risperdal to 1 mg a.m. and at bedtime in an attempt to modulate the patient's behavior. Eusebio Mendoza MD/ PhD
[2018-05-24] MEDS ORDERED: Sod Polystyrene Sulf 15 gm/60 ml Susp PO STA (15:24)
--- NOTE | 2018-05-24 15:31 | CP.PCM.PN ---
Subjective - Date & Time of Evaluation Date of Evaluation: 05/24/18 Time of Evaluation: 09:15 - Subjective Subjective: Not in distress but agitated at times., no fevers. Objective - Vital Signs/Intake and Output Vital Signs (last 24 hours): Temp Pulse Resp BP Pulse Ox 98.1 F 79 24 145/59 L 96 05/23/18 06:00 05/23/18 10:28 05/23/18 06:00 05/23/18 10:32 05/23/18 06:00 - Medications Medications: Current Medications Acetaminophen (Tylenol 325mg Tab) 650 mg PO Q4H PRN PRN Reason: Pain, Mild (1-3) Last Admin: 05/23/18 04:42 Dose: 650 mg Albuterol/Ipratropium (Duoneb 3 Mg/0.5 Mg (3 Ml) Ud) 3 ml IH [id number] [facility] Last Admin: 05/23/18 07:44 Dose: Not Given Albuterol/Ipratropium (Duoneb 3 Mg/0.5 Mg (3 Ml) Ud) 3 ml IH Q2H PRN PRN Reason: Shortness of Breath Amlodipine Besylate (Norvasc) 10 mg PO DAILY [facility] Last Admin: 05/23/18 10:32 Dose: 10 mg Apixaban (Eliquis) 2.5 mg PO BID [facility]; Protocol Last Admin: 05/23/18 10:29 Dose: 2.5 mg Arformoterol Tartrate (Brovana) 15 mcg IH [id number] [facility] Last Admin: 05/23/18 07:44 Dose: Not Given Aspirin (Ecotrin) 81 mg PO DAILY [facility] Last Admin: 05/23/18 10:29 Dose: 81 mg Atorvastatin Calcium (Lipitor) 20 mg PO HS [facility] Last Admin: 05/22/18 21:47 Dose: 20 mg Budesonide (Pulmicort Respules) 0.5 mg IH [id number] [facility] Last Admin: 05/23/18 07:44 Dose: Not Given Clonazepam (Klonopin) 0.5 mg PO BID PRN; Protocol PRN Reason: Anxiety Last Admin: 05/23/18 11:59 Dose: 0.5 mg Clonidine HCl (Catapres-Tts3 0.3 Mg/24 Hr) 1 patch TD Q7D@1000 [facility] Last Admin: 05/18/18 11:06 Dose: 1 patch Darbepoetin Timothy (Aranesp) 150 mcg SC QWK [facility] Last Admin: 05/21/18 09:55 Dose: 150 mcg Docusate Sodium (Colace) 100 mg PO TID [facility] Last Admin: 05/23/18 10:28 Dose: 100 mg Ergocalciferol (Drisdol 50,000 Intl Units Cap) 1 cap PO Q7D [facility] Last Admin: 05/18/18 23:00 Dose: Not Given Ferrous Gluconate (Fergon) 324 mg PO DAILY [facility] Last Admin: 05/23/18 10:42 Dose: 324 mg Fluconazole (Diflucan) 100 mg PO DAILY [facility]; Protocol Stop: 05/28/18 10:01 Last Admin: 05/23/18 10:29 Dose: 100 mg Hydralazine HCl (Apresoline) 100 mg PO TID [facility] Last Admin: 05/23/18 10:28 Dose: 100 mg Sodium Chloride (Sodium Chloride 0.45%) 1,000 mls @ 100 mls/hr IV .Q10H [facility] Last Admin: 05/23/18 10:35 Dose: 100 mls/hr Cefepime HCl (Maxipime 1gm) 1 gm in 100 mls @ 100 mls/hr IVPB DAILY JR; P rotocol Last Admin: 05/23/18 10:31 Dose: 100 mls/hr Insulin Detemir (Levemir) 20 unit SC HS [facility] Last Admin: 05/22/18 21:56 Dose: Not Given Insulin Human Regular (Humulin R Low) 0 units SC ACHS [facility]; Protocol Last Admin: 05/23/18 11:38 Dose: Not Given Isosorbide Mononitrate (Imdur) 60 mg PO DAILY [facility] Last Admin: 05/23/18 10:30 Dose: 60 mg Labetalol HCl (Trandate) 300 mg PO Q8 [facility] Last Admin: 05/23/18 06:33 Dose: 300 mg Levothyroxine Sodium (Synthroid) 50 mcg PO 0600 [facility] Last Admin: 05/23/18 06:33 Dose: 50 mcg Magnesium Oxide (Mag-Ox) 400 mg PO BID [facility] Last Admin: 05/23/18 10:30 Dose: 400 mg Multivitamins (Thera Tab) 1 tab PO 0800 [facility] Nifedipine (Procardia Xl) 60 mg PO QPM [facility] Last Admin: 05/22/18 18:11 Dose: 60 mg Nystatin (Nystop Topical Powder) 0 gm TOP TID [facility] Last Admin: 05/23/18 10:34 Dose: 25 applic Ondansetron HCl (Zofran Inj) 4 mg IVP Q4H PRN PRN Reason: Nausea/Vomiting Pantoprazole Sodium (Protonix Ec Tab) 20 mg PO ACB [facility] Last Admin: 05/23/18 10:34 Dose: 20 mg Pregabalin (Lyrica) 50 mg PO BID [facility] Last Admin: 05/23/18 10:36 Dose: 50 mg Risperidone (Risperdal Tab) 0.5 mg PO HS [facility]; Protocol Last Admin: 05/22/18 21:47 Dose: 0.5 mg Saliva Substitute (Saliva Substitute) 0 ml PO 5XD PRN PRN Reason: DRY MOUTH Sevelamer HCl (Renagel) 800 mg PO TID [facility] Silver Sulfadiazine (Silvadene 1% 25 Gm) 0 gm TP BID [facility] Last Admin: 05/23/18 10:35 Dose: 25 gm Simethicone (Mylicon Chew Tab) 80 mg PO PCHS PRN PRN Reason: GI distress Vitamin B Complex/Vit C/Folic Acid (Nephro-Holland) 1 tab PO 0800 [facility] Last Admin: 05/23/18 10:41 Dose: 1 tab - Labs Labs: 05/23/18 11:30 05/23/18 06:50 PT 15.0 SECONDS (9.4-12.5) H 05/11/18 13:45 INR 1.30 05/11/18 13:45 APTT 20.4 Seconds (25.1-36.5) L 05/11/18 13:45 - Constitutional Appears: Chronically Ill - Head Exam Head Exam: NORMAL INSPECTION - Respiratory Exam Respiratory Exam: Decreased Breath Sounds - Cardiovascular Exam Cardiovascular Exam: +S1, +S2 - GI/Abdominal Exam GI & Abdominal Exam: Soft. absent: Tenderness Assessment and Plan - Assessment and Plan (Free Text) Plan: Assessment abdominal wall cellulitis with probable infected abdominal mesh; most recent cu ltures from 05/03/2018 showed Pseudomonas and C. famata - eosinophilia R/O due to meds acute renal failure S/P small bowel obstruction in this patient with ventral wall hernia, S/P ventral incarcerated hernia repair, adhesiolysis and revision of colostomy S/P acute coronary syndrome with NSTEMI COPD history of VRE UTI history of severe sepsis secondary to left medial thigh abscess, growing Prote us, S/P incision and drainage DM HTN CAD Unresectable rectal cancer S/P chemotherapy and radiation therapy S/P colostomy S/P Port-a-cath placement morbid obesity with BMI 50 obstructive sleep apnea history of pulmonary embolism S/P IVC filter placement Plan we have discontinued Cefepime and Diflucan because of the eosinophilia and will monitor; follow up further plans of surgery, but apparently the patient has been refusing to have the mesh removed as per other doctors - discussed with Dr. Florian previously Renal following and managing acute renal failure
[2018-05-24] MEDS: NIFEdipine 60 mg ER Tab PO SCH (18:32)
--- NOTE | 2018-05-24 19:22 | PN ---
DATE: 05/24/2018 This is [facility]'s hospital visit on the medical floor. For Dr. Faye. SUBJECTIVE: The patient is a 61-year-old female, seen lying awake in bed. Reporting severe pain with review of her medical cortex. No pain. Medicines are listed with Dilaudid recently being discontinued. After conversation with Dr. Florian, we will restart morphine 2 mg IV every 4 hours with adjustment as indicated. The patient had significant anemic indices, which 1 unit packed red blood cells was transfused yesterday with labs drawn through the port earlier today showing elevated potassium of 6.0 with the hemoglobin repeated at 8.9 for which transfusions was done for hemoglobin of 7.7. A peripheral stick was then done with labs, then reported with hemoglobin now of 9.7 for which we will hold second unit of blood that was to be transfused as per Dr. Dawn Renal database consultant. However, potassium still was elevated at 6.1 which Kayexalate was recommended as the patient is in acute renal failure with a creatinine of 3.7 and BUN of 69. OBJECTIVE: VITAL SIGNS: Temperature 98, pulse 78, respirations 20, blood pressure 139/58, with the pulse ox of 97%. HEENT: Unremarkable. NECK: Supple. HEART: Regular rate. LUNGS: Decreased breath sounds bilaterally. ABDOMEN: Morbidly obese with dressing on left abdomen with viable colostomy noted. EXTREMITIES: +1 edema of the feet. NEUROLOGIC: Awake, confused. SKIN: Warm and dry with early decubitus on her back side reported. LABORATORY DATA: The patient's labs were done, white blood cell count 6.3 with a hemoglobin now repeated peripheral stick of 9.7, up from 7.7 yesterday when she was transfused 1 unit of packed cells after agreement with Dr. Dawn, Renal database consultant. Hematocrit is 31.6, platelet count 311,000 with a metabolic panel repeated peripheral stick showing a potassium 6.1, BUN is 69, creatinine 3.8, nonfasting glucose 185. The patient did have large amount of blood in her urine done testing 3 days prior. The urine culture showed no growth at that time. ASSESSMENT AND PLAN: For this patient is that of symptomatic anemia, acute renal failure, history of rectal cancer with colostomy recently revised, diabetes mellitus, intractable pain, hypercoagulable state, history of pulmonary embolism, deep venous thrombosis, chronic heart failure, morbid obesity, pulmonary hypertension, recent myocardial infarction, history of sepsis to medial thigh abscess, sacral decubitus ?. PLAN: For this patient after conversation with Dr. Faye is to continue present medical regimen. We will add morphine sulfate 2 mg IV every 4 hours for her severe pain with repeat labs to be done with the peripheral stick in the morning with a plasma and a serum potassium to be checked with further treatment for acute renal failure as per Dr. Dawn, Renal database consultant. Kayexalate was given as per Dr. Dawn's recommendation with consideration for dialysis as indicated. This is a complex patient with a comprehensive medically necessary and appropriate visit carried out in excess of 40 minutes with the patient's case reviewed with nursing with second unit blood not to be transfused, but to be held at this time with the questionable treatment of suspicious nephritis with steroids as indicated as per Dr. Dawn if necessary. Zuhair Herrera MD
--- NOTE | 2018-05-24 21:10 | PN ---
DATE: 05/24/2018 REASON FOR CONSULTATION: Followup, cardiac evaluation, history of congestive heart failure, transferred from half-way due to lethargy. SUBJECTIVE: The patient denies any chest pain, shortness of breath or any palpitations. OBJECTIVE: GENERAL: Not in apparent distress, though the patient off an on screams. PHYSICAL EXAMINATION: As follows: VITAL SIGNS: Temperature afebrile, heart rate 78, blood pressure 139/63. HEENT: PERRLA. Extraocular muscles Intact. NECK: Supple. No carotid bruit or thyromegaly. CHEST: Clear to auscultation. HEART: S1 and S2 regular. ABDOMEN: Soft. EXTREMITIES: Clubbing and cyanosis negative. LABORATORY DATA: Blood workup as follows: WBC is 6.3, hemoglobin , hematocrit 31.6, and platelet count 311. Chemistry shows sodium 138, potassium 6.1, chloride 107, carbon dioxide 21, anion gap of 16, BUN 69, and creatinine 3.8. IMPRESSION: A 62-year-old female with past medical history significant for morbid obesity, history of status post laparoscopy for intestinal obstruction, acute kidney injury, worsening renal insufficiency, history of congestive heart failure, history of coronary artery disease, history of deep vein thrombosis, pulmonary embolism, hyperkalemia, history of exploratory laparotomy on 05/03/2018. Admitted with altered mental status, history of rectal cancer status post colostomy, history of percutaneous transluminal coronary angioplasty in the circumflex in the past. Has hyperkalemia. RECOMMENDATION: Continue Kayexalate. Continue clonidine patch. Continue hydration. Overall, the patient's critical long-term prognosis is guarded. We will give additional Kayexalate now. Overall, the patient's condition is critical. Possibly, the patient may need dialysis. Close followup needed. Thank you Dr. Florian for providing us the opportunity to take in care of the patient, Pedro Guevara. Pamela Guerrero MD
[2018-05-24] MEDS: Insulin Detemir 100 units/ml Vial (Levemir) SC SCH (21:28)
[2018-05-25] MEDS: Albuterol-Ipratrop 3 mg / 0.5 (3 ml) UD IH SCH ×5 (01:18→20:16)
[2018-05-25] MEDS: Morphine 2 mg/ml ISec IVP PRN ×3 (02:33→20:24)
[2018-05-25] MEDS: Levothyroxine 50 MCG TAB PO SCH (05:09)
[2018-05-25] MEDS: Arformoterol 15 mcg/2 ml Inh Sol IH SCH (08:33)
[2018-05-25] MEDS: Insulin Reg-LOW-Coverage SC SCH ×6 (08:34→21:55)
[2018-05-25] MEDS: Pantoprazole 20 mg EC Tab PO SCH (08:36)
[2018-05-25] MEDS: Multivitamin Therapeutic Tab PO SCH (08:36)
[2018-05-25] MEDS: Multivitamin Vitamin B Complex (Nephro-Vite) Tab PO SCH (08:46)
[2018-05-25] MEDS: Magnesium Oxide 400 mg Tab UD PO SCH ×2 (10:04→17:47)
[2018-05-25] MEDS: Silver Sulfadiazine 1% Cream (25 gm) TP SCH ×2 (10:12→17:53)
[2018-05-25] MEDS: MethylPREDNISolone 40 mg Vial IVP SCH (10:13)
[2018-05-25] MEDS: Nystatin 100,000 Units/gm Topical Pow(15 gm) TOP SCH ×3 (10:13→17:53)
[2018-05-25 10:17] LABS: BASO # 0.03 K/mm3 (0.0-2.0); BASO % 0.5 % (0.0-3.0); EOS % 0.3 % (1.5-5.0); GRAN # 3.92 (1.4-6.5); HEMOGLOBIN 9.3 g/dL (12.0-16.0); LYMPH # 1.9 (1.2-3.4); MEAN CELL VOLUME 93.1 fl (80.0-105.0); MEAN CORPUSCULAR HEMOGLOBIN 27.8 pg (25.0-35.0); MEAN CORPUSCULAR HGB CONC 29.9 g/dl (31.0-37.0); MEAN PLATELET VOLUME 9.9 fl (7.0-11.0); MONO # 0.5 (0.1-0.6); MONO % 8.2 % (1.0-6.0); RBC 3.34 10^6/uL (3.5-6.1); RED CELL DISTRIBUTION WIDTH 19.3 % (11.5-14.5); WHITE BLOOD COUNT 6.4 10^3/uL (4.5-11.0)
[2018-05-25 10:38] LABS: ALB/GLOB RATIO 0.6 (1.1-1.8); ALBUMIN 2.7 g/dL (3.0-4.8); CALCIUM 7.1 mg/dL (8.4-10.5)
--- NOTE | 2018-05-25 12:41 | CP.PCM.PN ---
Subjective - Date & Time of Evaluation Date of Evaluation: 05/25/18 Time of Evaluation: 12:39 - Subjective Subjective: Nephrology Consultation Note: Assessment: worsening SHELBI ? pre-renal/ATN versus AIN as also with peripheral eosinophilia and eosinolphiuria hypomag, hyperphosphatemia hyperkalemia SBO s/p ex lap with ? MESH infection AMS, delirium left adrenal adenoma, Rt renal hyperdense cyst chronic hypercapnic respi failure Diabetic chronic Kidney Disease (E11.22) Hypertensive Chronic Kidney Disease (I12.9) Chronic Kidney Disease (N18.3) Stage 3 with 2.4 gm proteinuria (R80.9) likely due to DM/HTN/Obesity Anemia Vit D def morbid obesity, CAD s/p stent, COPD/SUMMER, rectal ca s/p colostomy Plan serum K better hence will defer renal replacement therapy initiation at this time but may need soon. will need close follow up on renal fxn HTN control on multiple meds. stopped lopressor as pt already on labetalol. consider to d/c clonidine as well Monitor Input/Output, daily weights and renal function with basic metabolic panel PRBC as needed (please give washed PRBC to minimize k load). d/w heme and okay to use KAVYA from heme perspective. on weekly aransep supplement lytes as needed held lasix. continue with IVF @ 60 ml/hr medical management of hyperkalemia as ordered/needed d/w ID re; concerns for AIN, eosinophilia and antibiotics. had d/c abx pt started on steroids empirically but will be hesitant to give them more than few days due to her co-morbidities and current clinical condition. pt not a candidate for kidney biopsy Adrenal adenoma work up with plasma renin/aldosterone, plasma metanephrine NEGATIVE. outpt 1 mg dexa suppression test repeat renal sono in 6 months to assess her Rt renal cyst Dose meds/antibiotics for reduced GFR. Avoid fleets enema/magnesium based laxa tives. Avoid nephrotoxins/NSAIDs/ iodinated contrast (unless needed emergently) Glycemic control Further work up/management as per primary team overall prognosis poor. Thanks for allowing me to participate in care of your patient. Will follow patient with you. Please call if any Qs. had d/w team Dr Dae Dawn Office: [phone] Chief Complaint;AMS Reason for consult: Acute Kidney Injury, CKD 3 HPI: Pt is a 62 F with hx of diabetes Mellitus (15 years), hypertension (years), CKD 3 with baseline cr 1.2-1.3 recently admitted after complicated abdominal surgery that represents w/ abdominal pain. Was recommended to get mesh removed last admission but refusing and still refusing per surgical service. She does not know why she is in the hospital. She denies n/v. She endorses reduced po intake. ROS: pt not able to provide. she is delirious. Physical Examination: General Appearance: comfortable, morbidly obese. not in acute respi distress Vitals reviewed and noted as below Head; Atraumatic, normocephalic ENT: dry mucosa EYES: Pupils are equal, round and reactive to light accommodation. Eye muscles and extraocular movement intact. Sclera is anicteric. Neck; supple no lymphadenopathy, no thyromegaly or bruit Lungs: Normal respiratory rate/effort. Breath sounds bilateral equal, diminished at bases but overall limited exam due to her obesity Heart: normal rate. s1s2 normal. No rub or gallop. Extremities: 1-2+ edema, non pitting lymphedema as well. No varicose veins Neurological: Patient is confused Skin: Warm and dry. Normal turgor. No rash. Palpitation: Normal elasticity for age Abdomen: Abdomen is + colostomy. midline donita + Psych: deferred MSK: no joint tenderness or swelling. Digits and nails normal, no deformity : kidney or bladder not palpable. has linares Labs/imaging reviewed. Past medical history, past surgical history, family history, social history, allergy reviewed and noted as below Family hx: no hx of CKD. Rest non-contributory Objective - Vital Signs/Intake and Output Vital Signs (last 24 hours): Temp Pulse Resp BP Pulse Ox 97.9 F 85 19 120/80 92 L 05/25/18 06:00 05/25/18 06:00 05/25/18 06:00 05/25/18 09:58 05/25/18 06:00 Intake and Output: 05/25/18 05/25/18 06:59 18:59 Intake Total 780 Output Total 150 Balance 630 - Medications Medications: Current Medications Acetaminophen (Tylenol 325mg Tab) 650 mg PO Q4H PRN PRN Reason: Pain, Mild (1-3) Last Admin: 05/23/18 04:42 Dose: 650 mg Albuterol/Ipratropium (Duoneb 3 Mg/0.5 Mg (3 Ml) Ud) 3 ml IH [id number] [facility] Last Admin: 05/25/18 08:33 Dose: 3 ml Albuterol/Ipratropium (Duoneb 3 Mg/0.5 Mg (3 Ml) Ud) 3 ml IH Q2H PRN PRN Reason: Shortness of Breath Amlodipine Besylate (Norvasc) 10 mg PO DAILY [facility] Last Admin: 05/25/18 09:58 Dose: 10 mg Apixaban (Eliquis) 2.5 mg PO BID [facility]; Protocol Last Admin: 05/25/18 10:12 Dose: 2.5 mg Arformoterol Tartrate (Brovana) 15 mcg IH [id number] [facility] Last Admin: 05/25/18 08:33 Dose: 15 mcg Aspirin (Ecotrin) 81 mg PO DAILY [facility] Last Admin: 05/25/18 09:58 Dose: 81 mg Atorvastatin Calcium (Lipitor) 20 mg PO HS [facility] Last Admin: 05/24/18 21:27 Dose: 20 mg Budesonide (Pulmicort Respules) 0.5 mg IH [id number] [facility] Last Admin: 05/24/18 07:19 Dose: 0.5 mg Clonazepam (Klonopin) 0.5 mg PO BID PRN; Protocol PRN Reason: Anxiety Last Admin: 05/24/18 15:51 Dose: 0.5 mg Clonidine HCl (Catapres-Tts3 0.3 Mg/24 Hr) 1 patch TD Q7D@1000 [facility] Last Admin: 05/18/18 11:06 Dose: 1 patch Darbepoetin Timothy (Aranesp) 150 mcg SC QWK [facility] Last Admin: 05/21/18 09:55 Dose: 150 mcg Docusate Sodium (Colace) 100 mg PO TID [facility] Last Admin: 05/25/18 09:58 Dose: 100 mg Ergocalciferol (Drisdol 50,000 Intl Units Cap) 1 cap PO Q7D [facility] Last Admin: 05/18/18 23:00 Dose: Not Given Ferrous Gluconate (Fergon) 324 mg PO DAILY [facility] Last Admin: 05/25/18 10:12 Dose: 324 mg Hydralazine HCl (Apresoline) 100 mg PO TID [facility] Last Admin: 05/25/18 10:04 Dose: 100 mg Sodium Chloride (Sodium Chloride 0.45%) 1,000 mls @ 60 mls/hr IV .[id number] [facility] Last Admin: 05/24/18 21:24 Dose: 60 mls/hr Insulin Detemir (Levemir) 20 unit SC HS [facility] Last Admin: 05/24/18 21:28 Dose: 20 units Insulin Human Regular (Humulin R Low) 0 units SC [facility]; Protocol Last Admin: 05/25/18 12:28 Dose: 1 unit Isosorbide Mononitrate (Imdur) 60 mg PO DAILY [facility] Last Admin: 05/25/18 10:04 Dose: 60 mg Labetalol HCl (Trandate) 300 mg PO Q8 [facility] Last Admin: 05/25/18 05:10 Dose: 300 mg Levothyroxine Sodium (Synthroid) 50 mcg PO 0600 [facility] Last Admin: 05/25/18 05:09 Dose: 50 mcg Magnesium Oxide (Mag-Ox) 400 mg PO BID [facility] Last Admin: 05/25/18 10:04 Dose: 400 mg Methylprednisolone (Solu-Medrol) 40 mg IVP DAILY [facility] Last Admin: 05/25/18 10:13 Dose: 40 mg Morphine Sulfate (Morphine) 2 mg IVP Q4H PRN PRN Reason: Pain, severe (8-10) Last Admin: 05/25/18 02:33 Dose: 2 mg Multivitamins (Thera Tab) 1 tab PO 0800 [facility] Last Admin: 05/25/18 08:36 Dose: 1 tab Nifedipine (Procardia Xl) 60 mg PO QPM [facility] Last Admin: 05/24/18 18:32 Dose: 60 mg Nystatin (Nystop Topical Powder) 0 gm TOP TID [facility] Last Admin: 05/25/18 10:13 Dose: 1 applic Ondansetron HCl (Zofran Inj) 4 mg IVP Q4H PRN PRN Reason: Nausea/Vomiting Pantoprazole Sodium (Protonix Ec Tab) 20 mg PO ACB [facility] Last Admin: 05/25/18 08:36 Dose: 20 mg Pregabalin (Lyrica) 50 mg PO BID [facility] Last Admin: 05/25/18 10:12 Dose: 50 mg Risperidone (Risperdal Tab) 1 mg PO DAILY [facility]; Protocol Last Admin: 05/25/18 10:12 Dose: 1 mg Risperidone (Risperdal Tab) 1 mg PO HS [facility]; Protocol Last Admin: 05/24/18 21:26 Dose: 1 mg Saliva Substitute (Saliva Substitute) 0 ml PO 5XD PRN PRN Reason: DRY MOUTH Sevelamer HCl (Renagel) 800 mg PO TID [facility] Last Admin: 05/25/18 10:11 Dose: 800 mg Silver Sulfadiazine (Silvadene 1% 25 Gm) 0 gm TP BID [facility] Last Admin: 05/25/18 10:12 Dose: 1 gm Simethicone (Mylicon Chew Tab) 80 mg PO PCHS PRN PRN Reason: GI distress Vitamin B Complex/Vit C/Folic Acid (Nephro-Holland) 1 tab PO 0800 [facility] Last Admin: 05/25/18 08:46 Dose: 1 tab - Labs Labs: 05/25/18 09:45 05/25/18 09:45 PT 15.0 SECONDS (9.4-12.5) H 05/11/18 13:45 INR 1.30 05/11/18 13:45 APTT 20.4 Seconds (25.1-36.5) L 05/11/18 13:45
--- NOTE | 2018-05-25 14:02 | PN ---
DATE: 05/25/2018 SUBJECTIVE: The patient seen in room 267, bed 1. No fevers and no chills. PHYSICAL EXAMINATION: VITAL SIGNS: On exam, the patient's temperature is 97, heart rate of 85, blood pressure is 130/60. HEENT: Examination of HEENT is unremarkable. NECK: Supple. LUNGS: Have decreased breath sounds. HEART: Normal S1, S2. ABDOMEN: Soft, nontender. LABORATORY DATA: Laboratory examination reveals a white count of 6.4, hemoglobin of 9, and the chemistries reveals a BUN of 73, creatinine of 3.9 and procalcitonin 0.47. Urinalysis is noted. Microbiology reveals yeast in the abdominal cultures and urine cultures. Blood cultures have no growth. Repeat blood cultures were also no growth and review of orders, reveals the patient to be on Solu-Medrol and review of systems reveals the patient is off of antibiotics. ASSESSMENT/PLAN This is a 62-year-old female with abdominal wall cellulitis, infected abdominal mesh with Pseudomonas and Celsa eosinophilia,acute renal failure and the patient with super morbid obesity with BMI of 51, obstructive sleep apnea and diabetic, hypertensive, coronary artery disease and ventral wall hernia repaired in the past, currently now off of antibiotics, afebrile. The patient will need to have the mesh removed, however, the patient is again this morning refused procedure. Overall prognosis poor for this patient. Lawrence Cheek MD
[2018-05-25] MEDS ORDERED: Sod Polystyrene Sulf 15 gm/60 ml Susp PO STA (17:16)
[2018-05-25] MEDS: NIFEdipine 60 mg ER Tab PO SCH (17:47)
[2018-05-25] MEDS: Sodium Chloride 0.45% 1,000 ML IV SCH (17:54)
--- NOTE | 2018-05-25 20:07 | PN ---
DATE: 05/25/2018 This is [facility]'s hospital visit on the telemetry floor. For Dr. Faye. SUBJECTIVE: The patient has been transferred as per Dr. Guerrero, her mash filter press operator from the medical floor to the telemetry floor with her kidney function still compromised. The patient, however, has improved her hemoglobin after transfusion of 1 unit of packed red blood cells with a value today of 9.3, improved from 7.7 two days prior. Unfortunately, she still has significant hyperkalemia to be treated as per franchise field consultant's recommendations along with a BUN of 73, creatinine of 3.[address] Dawn, her decision analyst. At present, she reports her pain is significantly improved after re-introduction of small doses of narcotic analgesics after Dilaudid had been discontinued without taper. OBJECTIVE/PHYSICAL EXAMINATION: VITAL SIGNS: Temperature 98.9, pulse 80, respirations 20, blood pressure 122/60 with a pulse ox of 97%. HEENT: Unremarkable. The patient appears more lucid today. NECK: Supple. HEART: Regular rate.. LUNGS: Minimal decreased breath sounds due to body habitus. ABDOMEN: Obese, soft, nontender with viable colostomy and dressing noted. EXTREMITIES: Chronic +1 edema of the feet. SKIN: Warm and dry. LABORATORY DATA: The patient's labs were done. White blood cell count 6.4, hemoglobin of 9.3, hematocrit 31.1, platelet count of 342,000. Chem metabolic panel showing a potassium of 5.7 today, down from 6.1 yesterday; BUN of 73; creatinine of 3.9, continues to rise; nonfasting glucose 162. Alk phos 149. ASSESSMENT: For this patient is that of acute renal failure; hyperkalemia; symptomatic anemia, status post transfusion; postoperative revision of colostomy; hernia repair; congestive heart failure; atherosclerotic cardiovascular disease; history of deep venous thrombosis and pulmonary embolism; intractable pain secondary to above; history of rectal cancer; history of angioplasty; pulmonary hypertension; recent myocardial infarction; sacral decubitus. PLAN: For this patient is to continue present medical regimen with considerations for dialysis should be indicated, correction of her hyperkalemia with monitoring of her labs and clinically with analgesics for her severe pain. This is a complex patient with comprehensive medically necessary and appropriate visit carried out in excess of 20 minutes with the patient's questions answered to her satisfaction. Zuhair Herrera MD
[2018-05-25] MEDS: Ergocalciferol 50,000 Intl Units Cap PO SCH (20:27)
[2018-05-25] MEDS: Insulin Detemir 100 units/ml Vial (Levemir) SC SCH (21:56)
--- NOTE | 2018-05-25 23:14 | PN ---
DATE: 05/25/2018 PULMONARY PROGRESS NOTE REFERRING PHYSICIAN: Dr. Florian. SUBJECTIVE: The patient is lying in bed, no acute distress, speaking french, on occasion answers in [place]. No headache, rhinitis, cough, shortness of breath, chest pain, nausea, vomiting, diarrhea, reported. The patient does report some abdominal pain. OBJECTIVE: VITAL SIGNS: Blood pressure 122/60, pulse 80, temperature 98.9, oxygen saturation 92%. PHYSICAL EXAMINATION GENERAL: No acute distress. HEENT: Moist mucous membranes. Mallampati score of 4. Crowded airway. NECK: Supple. No JVD. LUNGS: Clear bilaterally. CARDIOVASCULAR: S1, S2 audible. ABDOMEN: Soft, tender on palpation, colostomy with soft stool. Surgical site with dressing in place. EXTREMITIES: Bilateral lower extremity edema. NEUROLOGIC: Awake, alert, verbal, follows commands. MEDICATIONS: Reviewed. Tylenol 650 mg every 4 hours p.r.n. for mild pain, DuoNeb 3 mL inhalation every 6 hours, Norvasc 10 mg p.o. daily, Eliquis 2.5 mg twice a day, Brovana 15 mcg every 12 hours, aspirin 81 mg daily, Lipitor 20 mg at bedtime, Pulmicort 0.5 mg every 12 hours, Klonopin 0.5 mg twice a day p.r.n., clonidine patch 0.3 mg every 7 days, Aranesp 150 mcg subcu every week, Colace 100 mg three times a day, ergocalciferol 50,000 units every 7 days, ferrous gluconate 324 mg p.o. daily, hydralazine 100 mg three times a day, Levemir 20 units subcu at bedtime, Humulin R sliding scale, isosorbide mononitrate 60 mg p.o. daily, Synthroid 50 mcg daily, magnesium oxide 400 mg twice a day, Solu- Medrol 40 mg daily, morphine sulfate 2 mg IV push every 4 hours p.r.n. severe pain, multivitamin 1 tab p.o. daily, Procardia 60 mg in the evening, nystatin topical powder topically three times a day to affected area, Zofran 4 mg IV push every 4 hours p.r.n., Lyrica 50 mg twice a day, Risperdal 1 mg p.o. daily and 1 mg p.o. at bedtime, saliva substitute five times a day p.r.n., Renagel 800 mg three times a day, Silvadene topically to affected areas twice a day, simethicone 80 mg p.r.n, sodium chloride 1000 mL at 60 mL per hour, and Nephro-Holland one tab daily. LABORATORY DATA: Reviewed. WBC 6.4, RBC 3.34, hemoglobin 9.3, hematocrit 31.1 and platelets 342. Sodium 137, potassium 5.7, chloride 106, carbon dioxide 22, anion gap 14, BUN 73, creatinine 3.9, GFR 12, 162, random glucose 177, calcium 7.1. Total bilirubin 0.3, AST 25, ALT 21, alkaline phosphatase 1.9, total protein 7.0, albumin 2.7, globulin 4.2, albumin-globulin ratio 0.6. IMPRESSION AND PLAN: Status post laparotomy for small bowel obstruction, hernia repair and relocation of colostomy, sleep apnea syndrome, hypoventilation syndrome, carbon dioxide retention, hypoxemia, history of pulmonary embolism and deep venous thrombosis, chronic lung disease, diabetes, mesh infection, abdominal wound with Celsa and pulmonary hypertension. Pulmonary point of view, we will increase IV fluids to 80 mL per hour. We will give one dose Kayexalate 30 g and repeat labs in the morning. Continue BiPAP use at bedtime, and sleep apnea precaution, head of bed elevated at 45 degrees. Deep venous thrombosis prophylaxis and gastric prophylaxis. Pain management. pressure ulcer precaution. Continue consult with Infectious Disease, Surgical team and Nephrology, avoid nephro toxic drugs. The patient was seen and examined with Dr. Ayala. Discussed assessment and plan as described above. Thank you for this consult. We will follow with you. Breezy Schafer APN Pamela Ayala MD ANT
[2018-05-26] MEDS: Albuterol-Ipratrop 3 mg / 0.5 (3 ml) UD IH SCH ×3 (03:13→13:59)
[2018-05-26] MEDS: Levothyroxine 50 MCG TAB PO SCH (05:10)
[2018-05-26 06:16] LABS: BASO # 0.06 K/mm3 (0.0-2.0); BASO % 0.7 % (0.0-3.0); EOS # 0.1 (0.0-0.7); EOS % 1.7 % (1.5-5.0); GRAN # 4.35 (1.4-6.5); GRAN % 53.6 % (50.0-68.0); HEMOGLOBIN 9.1 g/dL (12.0-16.0); LYMPH # 2.8 (1.2-3.4); LYMPH % 34.6 % (22.0-35.0); MEAN CELL VOLUME 93.3 fl (80.0-105.0); MEAN CORPUSCULAR HEMOGLOBIN 27.7 pg (25.0-35.0); MEAN CORPUSCULAR HGB CONC 29.7 g/dl (31.0-37.0); MEAN PLATELET VOLUME 9.6 fl (7.0-11.0); MONO # 0.8 (0.1-0.6); MONO % 9.4 % (1.0-6.0); RBC 3.28 10^6/uL (3.5-6.1); RED CELL DISTRIBUTION WIDTH 19.7 % (11.5-14.5); WHITE BLOOD COUNT 8.1 10^3/uL (4.5-11.0)
[2018-05-26 06:41] LABS: ALB/GLOB RATIO 0.7 (1.1-1.8); ALBUMIN 2.8 g/dL (3.0-4.8); CALCIUM 6.7 mg/dL (8.4-10.5)
[2018-05-26] MEDS: Budesonide 0.5 mg/2 ml Inhal Susp UD IH SCH ×2 (07:49→20:15)
[2018-05-26] MEDS: Arformoterol 15 mcg/2 ml Inh Sol IH SCH ×2 (07:49→20:15)
[2018-05-26] MEDS: Insulin Reg-LOW-Coverage SC SCH ×4 (08:20→21:30)
[2018-05-26] MEDS: Pantoprazole 20 mg EC Tab PO SCH (08:28)
[2018-05-26] MEDS: Multivitamin Therapeutic Tab PO SCH (08:28)
[2018-05-26] MEDS: Multivitamin Vitamin B Complex (Nephro-Vite) Tab PO SCH (08:28)
[2018-05-26] MEDS: Nystatin 100,000 Units/gm Topical Pow(15 gm) TOP SCH ×3 (09:50→18:29)
[2018-05-26] MEDS: Silver Sulfadiazine 1% Cream (25 gm) TP SCH ×3 (09:50→18:31)
[2018-05-26] MEDS: MethylPREDNISolone 40 mg Vial IVP SCH (09:51)
[2018-05-26] MEDS: Magnesium Oxide 400 mg Tab UD PO SCH ×2 (09:52→18:29)
--- NOTE | 2018-05-26 11:27 | CP.PCM.PN ---
Subjective - Date & Time of Evaluation Date of Evaluation: 05/26/18 Time of Evaluation: 11:26 - Subjective Subjective: Nephrology Consultation Note: Assessment: worsening SHELBI ? pre-renal/ATN versus AIN as also with peripheral eosinophilia and eosinolphiuria hypomag, hyperphosphatemia hyperkalemia SBO s/p ex lap with ? MESH infection AMS, delirium left adrenal adenoma, Rt renal hyperdense cyst chronic hypercapnic respi failure Diabetic chronic Kidney Disease (E11.22) Hypertensive Chronic Kidney Disease (I12.9) Chronic Kidney Disease (N18.3) Stage 3 with 2.4 gm proteinuria (R80.9) likely due to DM/HTN/Obesity Anemia Vit D def morbid obesity, CAD s/p stent, COPD/SUMMER, rectal ca s/p colostomy Plan serum K better hence will defer renal replacement therapy initiation at this time but may need soon. will need close follow up on renal fxn. may need hold eliquis if need dialysis catheter placement. HTN control on multiple meds. stopped lopressor as pt already on labetalol. consider to d/c clonidine as well Monitor Input/Output, daily weights and renal function with basic metabolic panel PRBC as needed (please give washed PRBC to minimize k load). d/w heme and okay to use KAVYA from heme perspective. on weekly aransep supplement lytes as needed held lasix. continue with IVF @ 60 ml/hr medical management of hyperkalemia as ordered/needed d/w ID re; concerns for AIN, eosinophilia and antibiotics. had d/c abx pt started on steroids empirically but will be hesitant to give them more than few days due to her co-morbidities and current clinical condition. pt not a candidate for kidney biopsy Adrenal adenoma work up with plasma renin/aldosterone, plasma metanephrine NEGATIVE. outpt 1 mg dexa suppression test repeat renal sono in 6 months to assess her Rt renal cyst Dose meds/antibiotics for reduced GFR. Avoid fleets enema/magnesium based laxatives. Avoid nephrotoxins/NSAIDs/ iodinated contrast (unless needed emergently) Glycemic control Further work up/management as per primary team overall prognosis poor. Thanks for allowing me to participate in care of your patient. Will follow patient with you. Please call if any Qs. had d/w team Dr Dae Dawn Office: [phone] Chief Complaint;AMS Reason for consult: Acute Kidney Injury, CKD 3 HPI: Pt is a 62 F with hx of diabetes Mellitus (15 years), hypertension (years), CKD 3 with baseline cr 1.2-1.3 recently admitted after complicated abdominal surgery that represents w/ abdominal pain. Was recommended to get mesh removed last admission but refusing and still refusing per surgical service. She does not know why she is in the hospital. She denies n/v. She endorses reduced po intake. ROS: pt not able to provide much reliably. she is confused Physical Examination: General Appearance: comfortable, morbidly obese. not in acute respi distress Vitals reviewed and noted as below Head; Atraumatic, normocephalic ENT: dry mucosa EYES: Pupils are equal, round and reactive to light accommodation. Eye muscles and extraocular movement intact. Sclera is anicteric. Neck; supple no lymphadenopathy, no thyromegaly or bruit Lungs: Normal respiratory rate/effort. Breath sounds bilateral equal, diminished at bases but overall limited exam due to her obesity Heart: normal rate. s1s2 normal. No rub or gallop. Extremities: 2+ edema, No varicose veins Neurological: Patient is confused Skin: Warm and dry. Normal turgor. No rash. Palpitation: Normal elasticity for age Abdomen: Abdomen is + colostomy. midline donita + Psych: deferred MSK: no joint tenderness or swelling. Digits and nails normal, no deformity : kidney or bladder not palpable. has linares Labs/imaging reviewed. Past medical history, past surgical history, family history, social history, allergy reviewed and noted as below Family hx: no hx of CKD. Rest non-contributory Objective - Vital Signs/Intake and Output Vital Signs (last 24 hours): Temp Pulse Resp BP Pulse Ox 97.6 F 69 20 134/51 L 92 L 05/26/18 06:00 05/26/18 09:51 05/26/18 06:00 05/26/18 09:51 05/26/18 06:00 Intake and Output: 05/26/18 05/26/18 06:59 18:59 Intake Total 2640 Output Total 970 Balance 1670 - Medications Medications: Current Medications Acetaminophen (Tylenol 325mg Tab) 650 mg PO Q4H PRN PRN Reason: Pain, Mild (1-3) Last Admin: 05/23/18 04:42 Dose: 650 mg Albuterol/Ipratropium (Duoneb 3 Mg/0.5 Mg (3 Ml) Ud) 3 ml IH [id number] [facility] Last Admin: 05/26/18 07:49 Dose: 3 ml Albuterol/Ipratropium (Duoneb 3 Mg/0.5 Mg (3 Ml) Ud) 3 ml IH Q2H PRN PRN Reason: Shortness of Breath Amlodipine Besylate (Norvasc) 10 mg PO DAILY [facility] Last Admin: 05/26/18 09:51 Dose: 10 mg Apixaban (Eliquis) 2.5 mg PO BID [facility]; Protocol Last Admin: 05/26/18 09:51 Dose: 2.5 mg Arformoterol Tartrate (Brovana) 15 mcg IH [id number] [facility] Last Admin: 05/26/18 07:49 Dose: 15 mcg Aspirin (Ecotrin) 81 mg PO DAILY [facility] Last Admin: 05/26/18 09:52 Dose: 81 mg Atorvastatin Calcium (Lipitor) 20 mg PO HS [facility] Last Admin: 05/25/18 21:46 Dose: 20 mg Budesonide (Pulmicort Respules) 0.5 mg IH [id number] [facility] Last Admin: 05/26/18 07:49 Dose: 0.5 mg Calcium Acetate (Phoslo) 2,001 mg PO WM [facility] Last Admin: 05/26/18 08:28 Dose: 2,001 mg Clonazepam (Klonopin) 0.5 mg PO BID PRN; Protocol PRN Reason: Anxiety Last Admin: 05/25/18 20:23 Dose: 0.5 mg Clonidine HCl (Catapres-Tts3 0.3 Mg/24 Hr) 1 patch TD Q7D@1000 [facility] Last Admin: 05/25/18 14:58 Dose: 1 patch Darbepoetin Timothy (Aranesp) 150 mcg SC QWK [facility] Last Admin: 05/21/18 09:55 Dose: 150 mcg Docusate Sodium (Colace) 100 mg PO TID [facility] Last Admin: 05/26/18 09:52 Dose: 100 mg Ergocalciferol (Drisdol 50,000 Intl Units Cap) 1 cap PO Q7D [facility] Last Admin: 12/22/18 20:27 Dose: 1 cap Ferrous Gluconate (Fergon) 324 mg PO DAILY [facility] Last Admin: 05/26/18 09:51 Dose: 324 mg Hydralazine HCl (Apresoline) 100 mg PO TID [facility] Last Admin: 05/26/18 09:51 Dose: 100 mg Sodium Chloride (Sodium Chloride 0.45%) 1,000 mls @ 80 mls/hr IV .[id number] [facility] Last Admin: 05/25/18 17:54 Dose: 80 mls/hr Insulin Detemir (Levemir) [address] [facility] Last Admin: 05/25/18 21:56 Dose: 20 units Insulin Human Regular (Humulin R Low) 0 units SC [facility]; Protocol Last Admin: 05/26/18 08:20 Dose: Not Given Isosorbide Mononitrate (Imdur) 60 mg PO DAILY [facility] Last Admin: 05/26/18 09:51 Dose: 60 mg Labetalol HCl (Trandate) 300 mg PO Q8 [facility] Last Admin: 05/26/18 05:11 Dose: 300 mg Levothyroxine Sodium (Synthroid) 50 mcg PO 0600 [facility] Last Admin: 05/26/18 05:10 Dose: 50 mcg Magnesium Oxide (Mag-Ox) 400 mg PO BID [facility] Last Admin: 05/26/18 09:52 Dose: 400 mg Methylprednisolone (Solu-Medrol) 40 mg IVP DAILY [facility] Last Admin: 05/26/18 09:51 Dose: 40 mg Morphine Sulfate (Morphine) 2 mg IVP Q4H PRN PRN Reason: Pain, severe (8-10) Last Admin: 05/25/18 20:24 Dose: 2 mg Multivitamins (Thera Tab) 1 tab PO 0800 [facility] Last Admin: 05/26/18 08:28 Dose: 1 tab Nifedipine (Procardia Xl) 60 mg PO QPM [facility] Last Admin: 05/25/18 17:47 Dose: 60 mg Nystatin (Nystop Topical Powder) 0 gm TOP TID [facility] Last Admin: 05/26/18 09:50 Dose: 4 applic Ondansetron HCl (Zofran Inj) 4 mg IVP Q4H PRN PRN Reason: Nausea/Vomiting Pantoprazole Sodium (Protonix Ec Tab) 20 mg PO ACB [facility] Last Admin: 05/26/18 08:28 Dose: 20 mg Pregabalin (Lyrica) 50 mg PO BID [facility] Last Admin: 05/26/18 09:51 Dose: 50 mg Risperidone (Risperdal Tab) 1 mg PO DAILY [facility]; Protocol Last Admin: 05/26/18 09:51 Dose: 1 mg Risperidone (Risperdal Tab) 1 mg PO HS [facility]; Protocol Last Admin: 05/25/18 21:52 Dose: 1 mg Saliva Substitute (Saliva Substitute) 0 ml PO 5XD PRN PRN Reason: DRY MOUTH Silver Sulfadiazine (Silvadene 1% 25 Gm) 0 gm TP BID [facility] Last Admin: 05/26/18 09:50 Dose: 25 gm Simethicone (Mylicon Chew Tab) 80 mg PO PCHS PRN PRN Reason: GI distress Vitamin B Complex/Vit C/Folic Acid (Nephro-Holland) 1 tab PO 0800 [facility] Last Admin: 05/26/18 08:28 Dose: 1 tab - Labs Labs: 05/26/18 05:30 05/26/18 05:30 PT 15.0 SECONDS (9.4-12.5) H 05/11/18 13:45 INR 1.30 05/11/18 13:45 APTT 20.4 Seconds (25.1-36.5) L 05/11/18 13:45
--- NOTE | 2018-05-26 12:41 | PN ---
DATE: 05/26/2018 SUBJECTIVE: The patient is in bed, in no acute distress, nontoxic. OBJECTIVE: VITAL SIGNS: Temperature is 97, blood pressure is 130/50, respiratory rate of 20, heart rate of 82. HEENT: Unremarkable. NECK: Supple. LUNGS: Have decreased breath sounds. HEART: Normal S1, S2. ABDOMEN: Soft, nontender. LABORATORY EXAMINATION: Reveals a white count is 8.1, hemoglobin is 9, platelets of 325. Chemistries reveals a BUN of 73, creatinine of 4.4 and urinalysis is noted. Microbiology is reviewed and blood cultures are no growth. Review of orders reveals the patient is to be off of antibiotics. ASSESSMENT/PLAN This is a 62-year-old female with super morbid obesity, BMI of 60 with abdominal wall cellulitis and with an infected mesh with Pseudomonas and Celsa and acute renal failure on top of chronic renal disease and with obstructive sleep apnea, diabetic, hypertensive, coronary artery disease, ventral wall hernia repair in the past, currently off of antibiotics. The patient is recommended to have the infected mesh removed, she is refusing. No antibiotics at this time. Overall prognosis quite poor for this patient with multiorgan failure and super morbid obesity with a BMI of 60. Lawrence Cheek MD
[2018-05-26] MEDS: Sodium Chloride 0.45% 1,000 ML IV SCH (12:52)
[2018-05-26] MEDS ORDERED: Sod Polystyrene Sulf 15 gm/60 ml Susp PO ONE (16:46)
--- NOTE | 2018-05-26 17:44 | PN ---
DATE: 05/24/2018 SUBJECTIVE: She is stable. No new complaint. No chest pain. No short of breath. Today, just potassium was elevated. Otherwise, she is stable. PHYSICAL EXAMINATION: VITAL SIGNS: Temperature 98, heart rate 83, blood pressure 139/63, respiration 18, and saturation 94% to 95% on 4 liters. HEAD AND NECK: Normal. No JVD. No thyromegaly. CHEST: Clear bilaterally. CARDIAC: First sound and second sound normal. ABDOMEN: Soft, nontender. The lined incisions seems cleaned. Colostomy in the right side. EXTREMITIES: No edema. NEUROLOGIC: Normal. Generalized weakness, otherwise normal. LABORATORY DATA: Study on 05/24/2018, white count 6.6, hemoglobin 8.9, hematocrit 29.9, and platelets 340. Chemistry noted for sodium 138, potassium 6.1, chloride 107, bicarb 21, BUN 69, creatinine 3.8, blood sugar 185, and calcium 7.3. IMPRESSION: 1. Acute renal failure, on type of chronic, hyperkalemia. We will give Kayexalate, Renal consult on the case, Dr. Dawn. 2. Wound infection seems stable. 3. Hypertension, controlled. 4. The patient does have hypercoagulable state, coronary artery disease. Continue Eliquis, baby aspirin. 5. Obstructive sleep apnea, chronic obstructive pulmonary disease, morbid obesity, continue inhaled bronchodilators. 6. Sacral decubitus. 7. Agitation and anxiety. Continue Risperdal for now. Continue current therapy. Follow up clinically. Elroy Florian MD
--- NOTE | 2018-05-26 18:07 | PN ---
DATE: 05/25/2018 SUBJECTIVE: The patient is comfortable, in no distress. No chest pain, no shortness of breath. She is off antibiotics, seen by specialist. No nausea, no vomiting. Poor appetite. She is taking Glucerna. Otherwise, no new complaints. PHYSICAL EXAMINATION VITAL SIGNS: Temperature 97.9, heart rate 85, blood pressure 134/68, respirations 19, saturating 92% on 4 L nasal canula. HEAD AND NECK: Normal. No JVD. No thyromegaly. CHEST: Clear bilateral. CARDIAC: First sound and second sound normal. ABDOMEN: Obese. Colostomy in the right side. Midline incision seems dry. EXTREMITIES: Mid edema on the dorsum. NEUROLOGICAL: She moves all extremities but generally weak. LABORATORY DATA: Sodium 137, potassium 5.7, chloride 106, bicarb 22, BUN 73, creatinine 3.9, blood sugar 177, alk phos 149, albumin is low at 2.7, globulin is normal at 4.2. IMPRESSION AND PLAN: 1. Acute renal failure on type of chronic. The patient does have proteinuria. The proteinuria is due to diabetes and hypertension. In addition to acute interstitial nephritis, has eosinophils in the urine, prefer eosinophilia. We will give Solu-Medrol and monitor with the small engine mechanic. We will monitor creatinine. Urine output was almost 600 to 700 at one time, which is better than before. Plan, we will continue to monitor her kidney functions. Possibility of dialysis is there depending on how the patient responds. 2. Hypertension, stable. Continue Clonidine, Procardia and Norvasc. 3. Insulin-dependent diabetes, hypercholesterolemia. Continue current therapy. 4. Chronic obstructive pulmonary disease, morbid obesity, obstructive sleep apnea. Continue bilevel positive airway pressure machine. Follow up clinically. 5. Chronic back pain, osteoarthritis. Currently on pain medication, morphine. Plan, continue current therapy. 6. Coronary artery disease, pulmonary hypertension. Right coronary artery stent. Continue aspirin and Eliquis. Follow up clinically. We will follow up. Elroy Florian MD
[2018-05-26] MEDS: NIFEdipine 60 mg ER Tab PO SCH (18:29)
--- NOTE | 2018-05-26 18:43 | PN ---
DATE: 05/26/2018 SUBJECTIVE: Pedro Guevara is a 62-year-old female, seen today on 05/26/2018, seen by senior marketing data analyst. The patient is lying in 45 degrees in bed, comfortable, in no distress, asking questions about her conditions, and all questions answered in details. PHYSICAL EXAMINATION VITAL SIGNS: Temperature 97.2, heart rate 70, blood pressure 134/51, respirations 18, saturating 98% on 2 L. HEAD AND NECK: Normal. No JVD. No thyromegaly. CHEST: Clear bilaterally. CARDIAC: First sound and second sound normal. ABDOMEN: Soft, obese, nontender. There is colostomy on the right side. Midline incision dry. EXTREMITIES: There is mild edema on the dorsum. NEUROLOGICAL: Moves all extremities but generally weak. She is more alert, awake and oriented x3. LABORATORY DATA: White count 8.1, hemoglobin 9.1, hematocrit 30.6, platelets 325. Chemistries: Sodium 138, potassium 5.3, chloride 104, bicarb 26, BUN 73, creatinine went up to 4.4, blood sugar 182, calcium 6.7, phosphorous 8.4, alk phos 164. Total protein is normal, high globulin, low albumin. IMPRESSION AND PLAN: 1. Acute renal failure on type of chronic. The patient does have acute interstitial nephritis with eosinophils. Continue steroids. Monitor electrolytes and creatinine. Clinically stable. Does not need dialysis now, but we discussed with the patient that possibility. Continue steroids and will follow up clinically. 2. Hypertension. We will monitor blood pressure. It seems stable. Continue current medications. 3. Coronary artery disease and pulmonary hypertension. Continue aspirin. Continue Eliquis. Follow up clinically. 4. Obstructive sleep apnea and chronic obstructive pulmonary disease. Continue inhaled bronchodilators. Bilevel positive airway pressure while asleep. 5. History of rectal cancer. No metastasis in her case as per Dr. Faye. 6. Insulin-dependent diabetes. Continue current medications, insulin. Will follow up clinically. Continue current therapy. We will monitor electrolytes, kidney functions. Prognosis is poor. We will follow up with other sales consultant insurance. Elroy Florian MD [facility] # [phone]
--- NOTE | 2018-05-26 18:53 | PN ---
DATE: 05/26/2018 This is [facility]'s hospital visit on the telemetry floor. For Dr. Faye. SUBJECTIVE: The patient is a 62-year-old female, seen lying awake in bed, family at the bedside, now reporting her pain is significantly improved; however, she has not been out of bed with the recommendations to do so due to holiday schedule. We will request physiotherapy to assist in having the patient out of bed to chair on a daily basis beginning tomorrow. Otherwise, there is consideration for a renal dialysis catheter/AV fistula for placement with holding of her Eliquis after conversation with Dr. Dawn and Dr. Florian with further recommendations as indicated. She is otherwise in no acute distress this visit. OBJECTIVE: VITAL SIGNS: Temperature 97.2, pulse 70, respirations 18, and blood pressure 116/55, with pulse oximetry 98%. HEENT: Unremarkable. Tongue is moist. NECK: Supple. HEART: Regular rate. LUNGS: Decreased breath sounds at the bases. ABDOMEN: Obese, soft, and nontender with viable colostomy and dressings, right abdomen. EXTREMITIES: Chronic +1 edema in the feet. NEUROLOGIC: Awake and alert, not lethargic this visit. SKIN: Warm and dry. LABORATORY DATA: The patient's labs were done. White blood cell count of 8.1, hemoglobin of 9.1, status post transfusion recently 3 days prior for hemoglobin of 7.8, hematocrit 30.6, and platelet count of 325,000, with a metabolic panel showing a potassium of 5.3, BUN of 73, creatinine of 4.4, and calcium 6.7, for which Dr. Dawn is addressing at this time. ASSESSMENT: For this patient is that of acute renal failure; hyperkalemia, improving; symptomatic anemia, improved, status post transfusion; postoperative revision of colostomy; hernia repair; congestive heart failure; aortic sclerosis; CBD; history of deep vein thrombosis; pulmonary embolism, on Eliquis; history of rectal cancer; history of angioplasty; pulmonary hypertension; recent myocardial infarction; sacral decubitus. PLAN: The plan for this patient is to continue present medical regimen with analgesics as needed for her severe pain with labs being monitored as per financial analysis consultant's recommendations with consideration to hold Eliquis prior to dialysis catheter/AV fistula for dialysis as indicated. This is a complex patient with a comprehensive medically necessary and appropriate visit carried out in excess of 20 minutes with the patient's questions answered to her satisfaction. Zuhair Herrera MD
--- NOTE | 2018-05-26 18:57 | PN ---
DATE: 05/26/2018 PULMONARY PROGRESS NOTE REFERRING PHYSICIAN: Dr. Florian. SUBJECTIVE: The patient is lying in bed, head of bed elevated, son is at bedside. The patient reports feeling well today. The patient looks much better than prior days, more alert, verbal. No yelling or screaming. Did not wear BiPAP machine last night. No headache, rhinitis, cough, shortness of breath, chest pain, abdominal pain, nausea, vomiting, diarrhea, leg pain reported. OBJECTIVE: VITAL SIGNS: Blood pressure 134/80, pulse 75, temperature 97.2, oxygen saturation 98. GENERAL: No acute distress. HEENT: Moist mucous membranes. Mallampati score of 4. Crowded airway. NECK: Supple. No JVD. LUNGS: Clear bilaterally. CARDIOVASCULAR: S1, S2 audible. ABDOMEN: Soft. Colostomy with soft stool. Surgical site with dressing in place. EXTREMITIES: Bilateral lower extremity edema. NEUROLOGIC: Awake, alert, verbal, follows commands. MEDICATIONS: Reviewed. Tylenol 650 mg every 4 hours p.r.n. mild pain, DuoNeb 3 mL inhalation every 2 hours p.r.n., DuoNeb 3 mL inhalation every 6 hours, Norvasc 10 mg p.o. daily, Brovana 15 mcg every 12 hours, aspirin 81 mg p.o. daily, Lipitor 20 mg at bedtime, Pulmicort 0.5 mg every 12 hours, calcium acetate 2001 mg p.o., Klonopin 0.5 mg p.o. twice a day p.r.n., clonidine 0.3 mg 1 patch every 7 days, Aranesp 150 mcg subcutaneous every 12 hours, Colace 100 mg 3 times a day, ergocalciferol 50,000 units every 7 days, ferrous gluconate 324 mg p.o. daily, hydralazine 100 mg p.o. 3 times a day, Levemir 20 units subcutaneous at bedtime, Humulin R sliding scale, isosorbide mononitrate 60 mg p.o. daily, labetalol 300 mg p.o. every 8 hours, Synthroid 50 mcg daily, magnesium oxide 400 mg twice a day, Solu-Medrol 40 mg IV push daily, morphine sulfate 2 mg IV push every 4 hours p.r.n., multivitamin 1 tab daily, Procardia 60 mg in the evening, nystatin topical powder 3 times a day to affected areas, Zofran 4 mg IV push every 4 hours p.r.n., pantoprazole 20 mg in the evening, Lyrica 50 mg twice a day, Risperdal 1 mg daily, Risperdal 1 mg at bedtime, saliva substitute 5 times a day p.r.n., Silvadene topically twice a day to affected areas, simethicone 80 mg p.o. at bedtime p.r.n, sodium chloride 1000 mL at 80 mL per hour IV, vitamin B, Nephro-Hol[place] 1 tab daily. LABORATORY DATA: Reviewed. WBC 8.1, RBC 3.28, hemoglobin 9.1, hematocrit 30.6, platelets 325. Sodium 138, potassium 5.3, chloride 104, carbon dioxide 26, anion gap 13, BUN 73, creatinine 4.4, GFR 10, POC glucose 107, random glucose 100, calcium 6.7. Phosphorus 6.4. Total bilirubin 0.3, AST 36, ALT 24, alkaline phosphatase 164, total protein 7, albumin 2.8, globulin 4.2, albumin-globulin ratio of 0.7. Blood culture final, no growth after 5 days. IMPRESSION AND PLAN: Status post laparotomy for small bowel obstruction, hernia repair and relocation of colostomy, sleep apnea syndrome, hypoventilation syndrome, carbon dioxide retention, hypoxemia, history of pulmonary embolism and deep venous thrombosis, chronic lung disease, diabetes, mesh infection, abdominal wound with Celsa, pulmonary hypertension. Pulmonary point of view, continue bilevel positive airway pressure use at bedtime, sleep apnea precaution, head of bed elevated at 45 degrees, deep venous thrombosis prophylaxis, gastric prophylaxis, pain medication, pressure ulcer precaution. Continue consult with Infectious Disease, Surgical team, and Nephrology. Avoid nephrotoxic drug. We will give the patient 1 dose of Kayexalate now and repeat labs in the morning. This patient was seen and examined with Dr. Ayala. Discussed assessment and plan as described above. Thank you for this consult. We will follow with you. Breezy Prudence, RADIATION THERAPY TECHNOLOGIST Pamela Ayala MD [facility] # [id number]
[2018-05-26] MEDS: Insulin Detemir 100 units/ml Vial (Levemir) SC SCH (21:28)
[2018-05-27] MEDS: Sodium Chloride 0.45% 1,000 ML IV SCH (01:40)
[2018-05-27] MEDS: Levothyroxine 50 MCG TAB PO SCH (05:21)
[2018-05-27 07:09] LABS: CALCIUM 6.7 mg/dL (8.4-10.5)
[2018-05-27] MEDS: Pantoprazole 20 mg EC Tab PO SCH (07:30)
[2018-05-27] MEDS ORDERED: Albuterol-Ipratrop 3 mg / 0.5 (3 ml) UD IH SCH (08:00)
[2018-05-27] MEDS: Insulin Reg-LOW-Coverage SC SCH ×4 (08:09→21:37)
--- NOTE | 2018-05-27 08:10 | CP.PCM.PN ---
Subjective - Date & Time of Evaluation Date of Evaluation: 05/27/18 Time of Evaluation: 06:45 - Subjective Subjective: Lying in bed, no distress, awake, alert Reason for consultation and follow up: Cardiac evaluation of history of congestive heart failure, transferred from alf due to lethargy, chronic kidney disease Seen and examined by me and Dr. Guerrero Objective - Vital Signs/Intake and Output Vital Signs (last 24 hours): Temp Pulse Resp BP Pulse Ox 98.4 F 78 20 132/49 L 96 05/27/18 06:00 05/27/18 06:05 05/27/18 06:00 05/27/18 06:05 05/27/18 06:00 Intake and Output: 05/27/18 05/27/18 06:59 18:59 Intake Total 1000 Output Total 200 Balance 800 - Medications Medications: Current Medications Albuterol/Ipratropium (Duoneb 3 Mg/0.5 Mg (3 Ml) Ud) 3 ml IH [id number] [facility] Amlodipine Besylate (Norvasc) 10 mg PO DAILY [facility] Last Admin: 05/26/18 09:51 Dose: 10 mg Arformoterol Tartrate (Brovana) 15 mcg IH [id number] [facility] Aspirin (Ecotrin) 81 mg PO DAILY [facility] Last Admin: 05/26/18 09:52 Dose: 81 mg Calcium Acetate (Phoslo) 2,001 mg PO WM [facility] Last Admin: 05/26/18 16:38 Dose: 2,001 mg Clonazepam (Klonopin) 0.5 mg PO BID PRN; Protocol PRN Reason: Anxiety Last Admin: 05/26/18 21:58 Dose: 0.5 mg Clonidine HCl (Catapres-Tts3 0.3 Mg/24 Hr) 1 patch TD Q7D@1000 [facility] Last Admin: 05/25/18 14:58 Dose: 1 patch Darbepoetin Timothy (Aranesp) 150 mcg SC QWK [facility] Last Admin: 05/21/18 09:55 Dose: 150 mcg Docusate Sodium (Colace) 100 mg PO TID [facility] Last Admin: 05/26/18 18:29 Dose: 100 mg Ferrous Gluconate (Fergon) 324 mg PO DAILY [facility] Last Admin: 05/26/18 09:51 Dose: 324 mg Hydralazine HCl (Apresoline) 100 mg PO TID [facility] Last Admin: 05/26/18 18:28 Dose: 100 mg Sodium Chloride (Sodium Chloride 0.45%) 1,000 mls @ 80 mls/hr IV .[id number] [facility] Last Admin: 05/27/18 01:40 Dose: 80 mls/hr Insulin Detemir (Levemir) 20 unit SC [facility] Last Admin: 05/26/18 21:28 Dose: 20 units Insulin Human Regular (Humulin R Low) 0 units SC ACHS [facility]; Protocol Last Admin: 05/26/18 21:30 Dose: Not Given Isosorbide Mononitrate (Imdur) 60 mg PO DAILY [facility] Last Admin: 05/26/18 09:51 Dose: 60 mg Labetalol HCl (Trandate) 200 mg PO TID [facility] Last Admin: 05/27/18 06:05 Dose: Not Given Levothyroxine Sodium (Synthroid) 50 mcg PO 0600 [facility] Last Admin: 05/27/18 05:21 Dose: 50 mcg Magnesium Oxide (Mag-Ox) 400 mg PO BID [facility] Last Admin: 05/26/18 18:29 Dose: 400 mg Methylprednisolone (Solu-Medrol) 40 mg IVP DAILY [facility] Last Admin: 05/26/18 09:51 Dose: 40 mg Morphine Sulfate (Morphine) 2 mg IVP Q4H PRN PRN Reason: Pain, severe (8-10) Last Admin: 05/25/18 20:24 Dose: 2 mg Multivitamins (Thera Tab) 1 tab PO 0800 [facility] Last Admin: 05/26/18 08:28 Dose: 1 tab Nifedipine (Procardia Xl) 60 mg PO QPM [facility] Last Admin: 05/26/18 18:29 Dose: 60 mg Nystatin (Nystop Topical Powder) 0 gm TOP TID [facility] Last Admin: 05/26/18 18:29 Dose: 1 applic Pregabalin (Lyrica) 50 mg PO BID [facility] Last Admin: 05/26/18 18:29 Dose: 50 mg Risperidone (Risperdal Tab) 1 mg PO DAILY [facility]; Protocol Last Admin: 05/26/18 09:51 Dose: 1 mg Risperidone (Risperdal Tab) 1 mg PO HS [facility]; Protocol Last Admin: 05/26/18 21:29 Dose: 1 mg Saliva Substitute (Saliva Substitute) 0 ml PO 5XD PRN PRN Reason: DRY MOUTH Silver Sulfadiazine (Silvadene 1% 25 Gm) 0 gm TP BID JR Last Admin: 05/26/18 18:31 Dose: 25 gm - Labs Labs: 05/26/18 05:30 05/27/18 06:30 PT 15.0 SECONDS (9.4-12.5) H 05/11/18 13:45 INR 1.30 05/11/18 13:45 APTT 20.4 Seconds (25.1-36.5) L 05/11/18 13:45 - Constitutional Appears: Non-toxic, No Acute Distress - Head Exam Head Exam: NORMAL INSPECTION, NORMOCEPHALIC - Eye Exam Eye Exam: Normal appearance Pupil Exam: NORMAL ACCOMODATION - ENT Exam ENT Exam: Mucous Membranes Moist, Normal Exam - Respiratory Exam Respiratory Exam: Decreased Breath Sounds, NORMAL BREATHING PATTERN - Cardiovascular Exam Cardiovascular Exam: +S1, +S2 Additional comments: right chest port - GI/Abdominal Exam GI & Abdominal Exam: Soft, Normal Bowel Sounds Additional comments: colostomy - Exam Additional comments: linares catheter - Extremities Exam Additional comments: 3-4+ edema - Neurological Exam Neurological Exam: Alert, Awake - Psychiatric Exam Psychiatric exam: Normal Affect, Normal Mood - Skin Skin Exam: Dry, Normal Color, Warm Assessment and Plan - Assessment and Plan (Free Text) Assessment: A 62 year old morbidly obese female who got transferred to [facility] from alf due to altered mental status. Patient is known to service from previous multiple admissions. History of coronary artery disease with stent of circumflex,hypertension,hyperlipidemia,diabetes,sleep apnea,COPD, congestive heart failure, DVT/PE. History of bowel resection in the past with colostomy. She was admitted to [facility] due to small bowel obstruction and on 04/16/18 she had explor-lap and lysis of adhesions and ventral hernia repair with revision of colostomy (Dr. Mckeon).Postoperatively, patient had infection involving th mesh placed for the hernia repair and it was recommended that she undergo an additional procedure to have the mesh removed however patient refused surgical procedure. She was stablized and transferred to [facility]. Chest X ray showed severe cardiomegaly,moderate to severe pulmonary congestion.Not in respiratory distress, On nasal cannula 4l/min. Troponin 0.14/.15, denies chest pain, EKG- normal sinus rhythm, elevated due to renal insuffiency. Will treat medically. Surgical follow up for abdominal wound. Symptoms clinically improved. Cardiac status stable.Repeat Chest X ray showed improved vascular congestion. Being followed up by Nephrology for worsening renal status. Possibly may need hemodialysis. Plan: No distress, denies chest pain Uses BIPAP/CPAP Cardiac status stable No distress, Denies chest pain Heart rate controlled Blood pressure controlled Held eliquis for possible shiley catheter insertion Worsening kidney status, may need hemodialysis Followed up by Renal On Norvasc 10 mg daily, , ASA 81 mg daily, Lipitor 20 mg daily,Clonidine patch weekly,Lasix 40 mg daily, Labetolol 300 mg every 8 hours, Nifedipine 60 mg daily, Imdur 60 mg daily Continue current treatment Continue current medications Controlled glucose Will follow up Plan and treatment discussed with Dr. Guerrero
[2018-05-27] MEDS: Arformoterol 15 mcg/2 ml Inh Sol IH SCH ×2 (09:03→20:24)
--- NOTE | 2018-05-27 09:47 | CP.PCM.APN ---
Subjective - Date & Time of Evaluation Date of Evaluation: 05/27/18 Time of Evaluation: 09:00 - Subjective Subjective: pt seen in bed , complains she feels sob being set up to eat breakfast Review of Systems - Constitutional Constitutional: Lethargy - Respiratory Additional comments: shortness of breath Objective - Vital Signs/Intake and Output Vital Signs (last 24 hours): Temp Pulse Resp BP Pulse Ox 98.4 F 78 20 132/49 L 96 05/27/18 06:00 05/27/18 06:05 05/27/18 06:00 05/27/18 06:05 05/27/18 06:00 Intake and Output: 05/27/18 05/27/18 06:59 18:59 Intake Total 1000 Output Total 200 Balance 800 - Medications Medications: Current Medications Albuterol/Ipratropium (Duoneb 3 Mg/0.5 Mg (3 Ml) Ud) 3 ml IH [id number] [facility] Last Admin: 05/27/18 09:04 Dose: 3 ml Amlodipine Besylate (Norvasc) 10 mg PO DAILY [facility] Last Admin: 05/26/18 09:51 Dose: 10 mg Arformoterol Tartrate (Brovana) 15 mcg IH [id number] [facility] Aspirin (Ecotrin) 81 mg PO DAILY [facility] Last Admin: 05/26/18 09:52 Dose: 81 mg Calcium Acetate (Phoslo) 2,001 mg PO WM [facility] Last Admin: 05/26/18 16:38 Dose: 2,001 mg Clonazepam (Klonopin) 0.5 mg PO BID PRN; Protocol PRN Reason: Anxiety Last Admin: 05/26/18 21:58 Dose: 0.5 mg Clonidine HCl (Catapres-Tts3 0.3 Mg/24 Hr) 1 patch TD Q7D@1000 [facility] Last Admin: 05/25/18 14:58 Dose: 1 patch Darbepoetin Timothy (Aranesp) 150 mcg SC QWK [facility] Last Admin: 05/21/18 09:55 Dose: 150 mcg Docusate Sodium (Colace) 100 mg PO TID [facility] Last Admin: 05/26/18 18:29 Dose: 100 mg Ferrous Gluconate (Fergon) 324 mg PO DAILY [facility] Last Admin: 05/26/18 09:51 Dose: 324 mg Hydralazine HCl (Apresoline) 100 mg PO TID [facility] Last Admin: 05/26/18 18:28 Dose: 100 mg Sodium Chloride (Sodium Chloride 0.45%) 1,000 mls @ 80 mls/hr IV .[id number] [facility] Last Admin: 05/27/18 01:40 Dose: 80 mls/hr Calcium Gluconate 2,000 mg/ (Dextrose) 120 mls @ 110 mls/hr IVPB ONCE ONE Stop: 05/27/18 10:46 Insulin Detemir (Levemir) 20 unit SC [facility] Last Admin: 05/26/18 21:28 Dose: 20 units Insulin Human Regular (Humulin R Low) 0 units SC ACHS [facility]; Protocol Last Admin: 05/26/18 21:30 Dose: Not Given Isosorbide Mononitrate (Imdur) 60 mg PO DAILY [facility] Last Admin: 05/26/18 09:51 Dose: 60 mg Labetalol HCl (Trandate) 200 mg PO TID [facility] Last Admin: 05/27/18 06:05 Dose: Not Given Magnesium Oxide (Mag-Ox) 400 mg PO BID [facility] Last Admin: 05/26/18 18:29 Dose: 400 mg Methylprednisolone (Solu-Medrol) 40 mg IVP DAILY [facility] Last Admin: 05/26/18 09:51 Dose: 40 mg Morphine Sulfate (Morphine) 2 mg IVP Q4H PRN PRN Reason: Pain, severe (8-10) Last Admin: 05/25/18 20:24 Dose: 2 mg Multivitamins (Thera Tab) 1 tab PO 0800 [facility] Last Admin: 05/26/18 08:28 Dose: 1 tab Nifedipine (Procardia Xl) 60 mg PO QPM [facility] Last Admin: 05/26/18 18:29 Dose: 60 mg Nystatin (Nystop Topical Powder) 0 gm TOP TID [facility] Last Admin: 05/26/18 18:29 Dose: 1 applic Pregabalin (Lyrica) 50 mg PO BID [facility] Last Admin: 05/26/18 18:29 Dose: 50 mg Risperidone (Risperdal Tab) 1 mg PO DAILY [facility]; Protocol Last Admin: 05/26/18 09:51 Dose: 1 mg Risperidone (Risperdal Tab) 1 mg PO HS [facility]; Protocol Last Admin: 05/26/18 21:29 Dose: 1 mg Saliva Substitute (Saliva Substitute) 0 ml PO 5XD PRN PRN Reason: DRY MOUTH Silver Sulfadiazine (Silvadene 1% 25 Gm) 0 gm TP BID JR Last Admin: 05/26/18 18:31 Dose: 25 gm - Labs Labs: 05/26/18 05:30 05/27/18 06:30 PT 15.0 SECONDS (9.4-12.5) H 05/11/18 13:45 INR 1.30 05/11/18 13:45 APTT 20.4 Seconds (25.1-36.5) L 05/11/18 13:45 - Constitutional Appears: Non-toxic - Head Exam Head Exam: ATRAUMATIC, NORMAL INSPECTION - Eye Exam Eye Exam: Normal appearance Pupil Exam: NORMAL ACCOMODATION - ENT Exam ENT Exam: Normal Exam - Neck Exam Neck Exam: Normal Inspection - Respiratory Exam Respiratory Exam: Decreased Breath Sounds, NORMAL BREATHING PATTERN - Cardiovascular Exam Cardiovascular Exam: +S1, +S2 - GI/Abdominal Exam GI & Abdominal Exam: Soft, Normal Bowel Sounds Additional comments: obese, colostomy in place , multiple abd dressings intact - Extremities Exam Extremities Exam: Normal Capillary Refill - Neurological Exam Neurological Exam: Alert, Awake - Psychiatric Exam Psychiatric exam: Normal Mood - Skin Skin Exam: Dry, Intact Assessment and Plan - Assessment and Plan (Free Text) Plan: Micro Results 05/21/18 13:30 Blood-Venous Blood Culture - Final NO GROWTH AFTER 5 DAYS 05/21/18 13:30 Blood-Venous Gram Stain - Final TEST NOT PERFORMED 05/21/18 13:15 Blood-Venous Blood Culture - Final NO GROWTH AFTER 5 DAYS 05/21/18 13:15 Blood-Venous Gram Stain - Final TEST NOT PERFORMED 05/21/18 13:00 Urine,Marrero Urine Culture - Final No Growth (<1,000 CFU/ML) 05/11/18 19:35 Blood Blood Culture - Final NO GROWTH AFTER 5 DAYS 05/11/18 19:35 Blood Gram Stain - Final TEST NOT PERFORMED 05/11/18 13:45 Blood Blood Culture - Final NO GROWTH AFTER 5 DAYS 05/11/18 13:45 Blood Gram Stain - Final TEST NOT PERFORMED 05/12/18 22:54 Abdomen Gram Stain - Final 05/12/18 22:54 Abdomen Wound Culture - Final Megan Albicans 05/11/18 15:39 Urine,Catheterized Urine Culture - Final Yeast Species Most Recent Lab Values WBC 8.1 10^3/uL (4.5-11.0) D 05/26/18 05:30 RBC 3.28 10^6/uL (3.5-6.1) L 05/26/18 05:30 Hgb 9.1 g/dL (12.0-16.0) L 05/26/18 05:30 Hct 30.6 % (36.0-48.0) L 05/26/18 05:30 MCV 93.3 fl (80.0-105.0) 05/26/18 05:30 MCH 27.7 pg (25.0-35.0) 05/26/18 05:30 MCHC 29.7 g/dl (31.0-37.0) L 05/26/18 05:30 RDW 19.7 % (11.5-14.5) H 05/26/18 05:30 Plt Count 325 10^3/uL (120.0-450.0) 05/26/18 05:30 MPV 9.6 fl (7.0-11.0) 05/26/18 05:30 Gran % 53.6 % (50.0-68.0) 05/26/18 05:30 Lymph % (Auto) 34.6 % (22.0-35.0) 05/26/18 05:30 [place] % (Auto) 9.4 % (1.0-6.0) H 05/26/18 05:30 Eos % (Auto) 1.7 % (1.5-5.0) 05/26/18 05:30 Baso % (Auto) 0.7 % (0.0-3.0) 05/26/18 05:30 Gran # 4.35 (1.4-6.5) 05/26/18 05:30 Lymph # (Auto) 2.8 (1.2-3.4) 05/26/18 05:30 [place] # (Auto) 0.8 (0.1-0.6) H 05/26/18 05:30 Eos # (Auto) 0.1 (0.0-0.7) 05/26/18 05:30 Baso # (Auto) 0.06 K/mm3 (0.0-2.0) 05/26/18 05:30 Retic Count 2.60 % (0.5-1.5) H 05/23/18 13:40 PT 15.0 SECONDS (9.4-12.5) H 05/11/18 13:45 INR 1.30 05/11/18 13:45 APTT 20.4 Seconds (25.1-36.5) L 05/11/18 13:45 pCO2 51 mm/Hg (35-45) H 05/11/18 16:11 pO2 86.0 mm/Hg (80-100) 05/11/18 16:11 HCO3 27.5 mmol/L (21-28) 05/11/18 16:11 ABG pH 7.34 (7.35-7.45) L 05/11/18 16:11 ABG Total CO2 29.1 mmol.L (22-28) H 05/11/18 16:11 ABG O2 Saturation 98.5 % (95-98) H 05/11/18 16:11 ABG O2 Content 11.5 ML/dl (15-23) L 05/11/18 16:11 ABG Base Excess 1.3 mmol/L (-2.0-3.0) 05/11/18 16:11 ABG Hemoglobin 8.5 g/dL (11.7-17.4) L 05/11/18 16:11 ABG Carboxyhemoglobin 2.9 % (0.5-1.5) H 05/11/18 16:11 POC ABG HHb (Measured) 1.4 % (0-5) 05/11/18 16:11 ABG Methemoglobin 0.9 % (0.0-3.0) 05/11/18 16:11 ABG O2 Capacity 11.7 mL/dl (16-24) L 05/11/18 16:11 VBG pH 7.30 (7.32-7.43) L 05/11/18 13:45 VBG pCO2 60.0 (40-60) 05/11/18 13:45 VBG HCO3 29.5 mmol/l (21-28) H 05/11/18 13:45 VBG Total CO2 31.3 mmol.L (22-28) H 05/11/18 13:45 VBG O2 Sat (Calc) 98.7 % (40-65) H 05/11/18 13:45 VBG Base Excess 1.6 mmol/L (0.0-2.0) 05/11/18 13:45 VBG Potassium 5.1 mmol/L (3.6-5.2) 05/11/18 13:45 Hgb O2 Saturation 94.9 % (95.0-98.0) L 05/11/18 16:11 Sodium 142.0 mmol/L (132-148) 05/11/18 13:45 Chloride 108.0 mmol/L (98-107) H 05/11/18 13:45 Glucose 141 mg/dl (65-105) H 05/11/18 13:45 Lactate 0.7 mmol/L (0.7-2.1) 05/11/18 13:45 FiO2 50.0 % 05/11/18 16:11 Sodium 132 mmol/L (132-148) 05/27/18 06:30 Potassium 5.2 mmol/L (3.6-5.0) H 05/27/18 06:30 Chloride 101 mmol/L (98-107) 05/27/18 06:30 Carbon Dioxide 23 mmol/L (21-33) 05/27/18 06:30 Anion Gap 13 (10-20) 05/27/18 06:30 BUN 73 mg/dL (7-21) H 05/27/18 06:30 Creatinine 4.1 mg/dl (0.7-1.2) H 05/27/18 06:30 Est GFR ( Amer) 13 05/27/18 06:30 Est GFR (Non-Af Amer) 11 05/27/18 06:30 POC Glucose (mg/dL) 122 mg/dL (65-110) H 05/27/18 07:48 Random Glucose 140 mg/dL (70-110) H 05/27/18 06:30 Calcium 6.7 mg/dL (8.4-10.5) L* 05/27/18 06:30 Phosphorus 8.4 mg/dL (2.5-4.5) H 05/26/18 05:30 Magnesium 1.5 mg/dL (1.7-2.2) L 05/24/18 07:15 TIBC 119 ug/dL (265-497) L 05/23/18 14:47 Ferritin 349.0 ng/mL 05/23/18 13:40 Total Bilirubin 0.3 mg/dL (0.2-1.3) 05/26/18 05:30 AST 36 U/L (14-36) D 05/26/18 05:30 ALT 24 U/L (7-56) 05/26/18 05:30 Alkaline Phosphatase 164 U/L (38-126) H 05/26/18 05:30 Troponin I 0.15 ng/mL H* D 05/11/18 14:40 NT-Pro-B Natriuret Pep 75799 pg/mL (0-450) H 05/11/18 14:40 Total Protein 7.0 g/dL (5.8-8.3) 05/26/18 05:30 Albumin 2.8 g/dL (3.0-4.8) L 05/26/18 05:30 Globulin 4.2 gm/dL 05/26/18 05:30 Albumin/Globulin Ratio 0.7 (1.1-1.8) L 05/26/18 05:30 Folate > 20.0 ng/mL 05/23/18 13:40 Procalcitonin 0.47 NG/ML (0.19-0.49) 05/11/18 13:30 Free T4 1.34 ng/dL (0.78-2.19) 05/21/18 06:20 TSH 3rd Generation 1.62 mIU/mL (0.46-4.68) 05/21/18 06:20 Venous Blood Potassium 5.1 mmol/L (3.6-5.2) 05/11/18 13:45 Urine Color Brown (YELLOW) 05/21/18 13:00 Urine Appearance Cloudy (CLEAR) 05/21/18 13:00 Urine pH 6.5 (4.7-8.0) 05/21/18 13:00 Ur Specific [place] >= 1.030 (1.005-1.035) 05/21/18 13:00 Urine Protein >=300 mg/dL (<30 mg/dL) H 05/21/18 13:00 Urine Glucose (UA) 100 mg/dL (NEGATIVE) H 05/21/18 13:00 Urine Ketones Trace mg/dL (NEGATIVE) H 05/21/18 13:00 Urine Blood Large (NEGATIVE) H 05/21/18 13:00 Urine Nitrate Positive (NEGATIVE) H 05/21/18 13:00 Urine Bilirubin Moderate (NEGATIVE) H 05/21/18 13:00 Urine Urobilinogen 1.0 E.U./dL (<1 E.U./dL) H 05/21/18 13:00 Ur Leukocyte Esterase Trace Martinez/uL (NEGATIVE) H 05/21/18 13:00 Urine RBC Tntc /hpf (0-2) H 05/21/18 13:00 Urine WBC 1 - 3 /hpf (0-6) 05/21/18 13:00 Ur Epithelial Cells None /hpf (0-5) 05/21/18 13:00 Amorphous Sediment Few /hpf (NONE) 05/21/18 13:00 Urine Bacteria Few /hpf (NONE) 05/21/18 13:00 Coarse Granular Casts Small /hpf (NONE) 05/21/18 13:00 Urine Other Uyeast 05/11/18 15:39 Urine Eosinophils Pos 05/23/18 19:09 Ur Random Creatinine 81 mg/dL 05/21/18 13:00 Ur Random Sodium 34 meq/L 05/21/18 13:00 Blood Type O POSITIVE 05/23/18 21:27 Antibody Screen Negative 05/23/18 21:27 Crossmatch See Detail 05/23/18 21:27 BBK History Checked Patient has bt 05/23/18 21:27 All Active Problems COPD (chronic obstructive pulmonary disease) (Acute) Congestive heart failure (Acute) Urinary tract infection (Acute) Abdominal pain (Acute) Abscess (Acute) Acute hypercapnic respiratory failure due to obstructive sleep apnea (Acute) Acute kidney injury (Acute) Acute pulmonary embolus (Acute) [id number] kidney injury (Acute) Altered mental status (Acute) Anemia (Acute) Anemia of chronic disease (Acute) Back pain (Acute) Chronic kidney disease-mineral and bone disorder (Acute) Dehydration (Acute) Diastolic CHF (Acute) Hypercapnic respiratory failure, chronic (Acute) Hyperglycemia (Acute) Hypertension (Acute) Hypertensive chronic kidney disease (Acute) Intractable abdominal pain (Acute) Intractable vomiting (Acute) Leukocytosis (Acute) Nephrotic range proteinuria (Acute) Partial small bowel obstruction (Acute) Pneumonia (Acute) Proteinuria (Acute) Pulmonary edema (Acute) Rectal carcinoma (Acute) Renal failure (Acute) Renal failure (ARF), acute on chronic (Acute) Renal failure (ARF), acute on chronic (Acute) Renal insufficiency (Acute) Respiratory compromise (Acute) Respiratory distress (Acute) Sepsis (Acute) Tachycardia (Acute) A/P 62 yr old female with pmh sig for htn, hld, unresectable colon ca sbo s/p abd surgery 04/14/18 with probable infection involving the mesh placed during the surgery now brought to the Er from [facility] for lethargy and fever now being evaluated by ID for abd wall cellulitis with recent cultures may 03 showing pseudomons and c. famata, with additional abdominal wound and UC showing yeast species/ megan albicans pt with acute renal failure per discussion with PMD, cardio and Renal will; hold eliquis for 48hrs and trend bun/cr for possible new HD per cardio - hold Eliquis and not start Iv heparin yet , monitor and resume in 48hrs if no HD indicated will continue to monitor Urine function and trend bun/cr for need for acute Renal repalcement therapy
[2018-05-27] MEDS: Magnesium Oxide 400 mg Tab UD PO SCH ×2 (10:07→17:41)
[2018-05-27] MEDS: Nystatin 100,000 Units/gm Topical Pow(15 gm) TOP SCH ×2 (10:12→13:39)
[2018-05-27] MEDS: MethylPREDNISolone 40 mg Vial IVP SCH (10:14)
[2018-05-27] MEDS: Multivitamin Therapeutic Tab PO SCH (10:18)
[2018-05-27] MEDS: Silver Sulfadiazine 1% Cream (25 gm) TP SCH ×2 (10:19→17:42)
--- NOTE | 2018-05-27 11:11 | RAD ---
Date of service: 05/27/2018 HISTORY: rule out infiltrate COMPARISON: 05/17/2018 FINDINGS: LUNGS: No active pulmonary disease. PLEURA: No significant pleural effusion identified, no pneumothorax apparent. CARDIOVASCULAR: No aortic atherosclerotic calcification present. Moderate cardiomegaly moderate vascular congestion OSSEOUS STRUCTURES: No significant abnormalities. VISUALIZED UPPER ABDOMEN: Normal. OTHER FINDINGS: None. IMPRESSION: Moderate cardiomegaly and moderate vascular congestion
--- NOTE | 2018-05-27 11:49 | PN ---
DATE: 05/27/2018 PULMONARY PROGRESS NOTE REFERRING PHYSICIAN: Elroy Florian MD SUBJECTIVE: The patient is sitting in bed, awake, alert, verbal, no acute distress. No overnight events supported. The patient reports having cough, unable to expectorate sputum. Also complaining of some shortness of breath. No headache, rhinitis, chest pain, abdominal pain, nausea, vomiting, diarrhea, leg pain, leg swelling reported. OBJECTIVE: VITAL SIGNS: Blood pressure 132/49, pulse 78, temperature 98.6, oxygen saturation 96. GENERAL: No acute distress. HEENT: Moist mucous membranes. Mallampati score of 4. Crowded airway. NECK: Supple. No JVD. LUNGS: Fair airflow bilaterally. CARDIOVASCULAR: S1, S2 audible. ABDOMEN: Soft. Colostomy with soft stool. Surgical site with dressing in place. EXTREMITIES: Bilateral lower extremity edema. NEUROLOGIC: Awake, alert, verbal, follows commands. MEDICATIONS: Reviewed. DuoNeb 3 mL inhalation every 6 hours, Brovana 15 mcg every 12 hours, calcium acetate 2001 mg p.o. Mondays and Wednesdays, calcium gluconate 2000 mg one time dose, Klonopin 0.5 mg twice a day, clonidine one patch every 7 days, Aranesp 150 mcg weekly, Colace 100 mg 3 times a day, hydralazine 100 mg 3 times a day, Levemir 20 units subcutaneous at bedtime, Humulin R sliding scale, labetalol 200 mg three times a day, magnesium oxide 400 mg twice a day, Solu-Medrol 40 mg daily, morphine sulfate 2 mg IV push every 4 hours p.r.n., multivitamin 1 tab p.o. daily, Procardia XL 60 mg every evening, nystatin topically three times a day to affected areas, Lyrica 50 mg twice a day, Risperdal 1 mg daily, Risperdal 1 mg at bedtime, saliva substitute 5 times a day p.r.n., Silvadene topically twice a day, sodium chloride 1000 mL at 80 mL per hour. LABORATORY DATA: Reviewed. Sodium 132, potassium 5.2, chloride 101, carbon dioxide 23, anion gap 13, BUN 73, creatinine 4.1, GFR 11, POC glucose 122, random glucose 140, calcium 6.7. IMPRESSION AND PLAN: Status post laparotomy for small bowel obstruction, hernia repair and relocation of colostomy, sleep apnea syndrome, hypoventilation syndrome, carbon dioxide retention, hypoxemia, history of pulmonary embolism and deep venous thrombosis, chronic lung disease, diabetes, mesh infection, abdominal wound with Celsa, pulmonary hypertension. Pulmonary point of view, we will order portable chest x-ray today. We will start the patient on Singulair and Protonix for gastric prophylaxis. We will change DuoNeb to p.r.n. Continue Brovana. We will add Pulmicort and Mucomyst inhalers. We will place the patient on nasal saline spray p.r.n. for airway clearance. We will repeat labs in the morning. Continue bilevel positive airway pressure use at bedtime, sleep apnea precaution, head of bed elevated at 45 degrees, deep venous thrombosis prophylaxis, gastric prophylaxis, pain management, pressure ulcer precaution. Continue consult with Infectious Disease, Nephrology and Surgical team. Avoid nephrotoxic drug. This patient was seen and examined with Dr. Ayala. Discussed assessment and plan as described above. Thank you for this consult. Breezy Schafer APN Pamela Ayala MD [id number]
[2018-05-27] MEDS: Acetylcysteine 20% Inhal Soln (4ml) IH SCH ×2 (13:09→20:25)
[2018-05-27] MEDS: Albuterol-Ipratrop 3 mg / 0.5 (3 ml) UD IH PRN ×2 (13:10→20:26)
[2018-05-27] MEDS: Multivitamin Vitamin B Complex (Nephro-Vite) Tab PO SCH (13:39)
--- NOTE | 2018-05-27 14:03 | CP.PCM.PN ---
Subjective - Date & Time of Evaluation Date of Evaluation: 05/27/18 Time of Evaluation: 13:53 - Subjective Subjective: Nephrology Consultation Note: Assessment: worsening SHELBI ? pre-renal/ATN versus AIN as also with peripheral eosinophilia and eosinolphiuria pulmonary congestion with fluid overload. hypomag, hyperphosphatemia hyperkalemia SBO s/p ex lap with ? MESH infection AMS, delirium left adrenal adenoma, Rt renal hyperdense cyst chronic hypercapnic respi failure Diabetic chronic Kidney Disease (E11.22) Hypertensive Chronic Kidney Disease (I12.9) Chronic Kidney Disease (N18.3) Stage 3 with 2.4 gm proteinuria (R80.9) likely due to DM/HTN/Obesity Anemia Vit D def morbid obesity, CAD s/p stent, COPD/SUMMER, rectal ca s/p colostomy Plan pt with pulmonary congestion with fluid overload. will stop ivf and give a lasix 80 mg ivp. if unable to diurese then will need to consider dialysis initiation held eliquis after d/w pmd and heme-onc in anticipation of possible need of dialysis catheter placement. if need to give her systemic a/c in the interim, may consider heparin drip. had d/w team HTN control on multiple meds. consider to d/c clonidine Monitor Input/Output, daily weights and renal function with basic metabolic panel PRBC as needed (please give washed PRBC to minimize k load). d/w heme and okay to use KAVYA from heme perspective. on weekly aransep supplement lytes as needed medical management of hyperkalemia as ordered/needed d/w ID re; concerns for AIN, eosinophilia and antibiotics. had d/c abx pt started on steroids empirically but will be hesitant to give them more than few days due to her co-morbidities and current clinical condition. pt not a candidate for kidney biopsy Adrenal adenoma work up with plasma renin/aldosterone, plasma metanephrine NEGATIVE. outpt 1 mg dexa suppression test repeat renal sono in 6 months to assess her Rt renal cyst Dose meds/antibiotics for reduced GFR. Avoid fleets enema/magnesium based laxatives. Avoid nephrotoxins/NSAIDs/ iodinated contrast (unless needed emergently) Glycemic control Further work up/management as per primary team overall prognosis poor. Thanks for allowing me to participate in care of your patient. Will follow patient with you. Please call if any Qs. had d/w team Dr Dae Dawn Office: [phone] Chief Complaint;AMS Reason for consult: Acute Kidney Injury, CKD 3 HPI: Pt is a 62 F with hx of diabetes Mellitus (15 years), hypertension (years), CKD 3 with baseline cr 1.2-1.3 recently admitted after complicated abdominal surgery that represents w/ abdominal pain. Was recommended to get mesh removed last admission but refusing and still refusing per surgical service. She does not know why she is in the hospital. She denies n/v. She endorses reduced po intake. ROS: pt not able to provide much reliably. c/o sob today Physical Examination: General Appearance: comfortable, morbidly obese. not in acute respi distress Vitals reviewed and noted as below Head; Atraumatic, normocephalic ENT: dry mucosa EYES: Pupils are equal, round and reactive to light accommodation. Eye muscles and extraocular movement intact. Sclera is anicteric. Neck; supple no lymphadenopathy, no thyromegaly or bruit Lungs: increased respiratory rate/effort. Breath sounds bilateral equal, diminished at bases but overall limited exam due to her obesity Heart: normal rate. s1s2 normal. No rub or gallop. Extremities: 2+ edema, No varicose veins Neurological: Patient is confused Skin: Warm and dry. Normal turgor. No rash. Palpitation: Normal elasticity for age Abdomen: Abdomen is + colostomy. midline donita + Psych: deferred MSK: no joint tenderness or swelling. Digits and nails normal, no deformity : kidney or bladder not palpable. has linares Labs/imaging reviewed. Past medical history, past surgical history, family history, social history, allergy reviewed and noted as below Family hx: no hx of CKD. Rest non-contributory Objective - Vital Signs/Intake and Output Vital Signs (last 24 hours): Temp Pulse Resp BP Pulse Ox 98.4 F 78 20 112/83 96 05/27/18 06:00 05/27/18 06:05 05/27/18 06:00 05/27/18 13:37 05/27/18 06:00 Intake and Output: 05/27/18 05/27/18 06:59 18:59 Intake Total 1000 Output Total 200 Balance 800 - Medications Medications: Current Medications Acetylcysteine (Acetylcysteine 20%) 4 ml [facility]P [facility] Last Admin: 05/27/18 13:09 Dose: 4 ml Albuterol/Ipratropium (Duoneb 3 Mg/0.5 Mg (3 Ml) Ud) 3 ml IH [id number] PRN PRN Reason: Shortness of Breath Last Admin: 05/27/18 13:10 Dose: 3 ml Arformoterol Tartrate (Brovana) 15 mcg IH [id number] JR Budesonide (Pulmicort Respules) 0.5 mg IH [id number] JR Calcium Acetate (Phoslo) 2,001 mg PO WM [facility] Last Admin: 05/27/18 13:38 Dose: Not Given Clonazepam (Klonopin) 0.5 mg PO BID PRN; Protocol PRN Reason: Anxiety Last Admin: 05/27/18 10:07 Dose: 0.5 mg Clonidine HCl (Catapres-Tts3 0.3 Mg/24 Hr) 1 patch TD Q7D@1000 [facility] Last Admin: 05/25/18 14:58 Dose: 1 patch Darbepoetin Timothy (Aranesp) 150 mcg SC QWK [facility] Last Admin: 05/21/18 09:55 Dose: 150 mcg Docusate Sodium (Colace) 100 mg PO TID [facility] Last Admin: 05/27/18 13:37 Dose: 100 mg Hydralazine HCl (Apresoline) 100 mg PO TID [facility] Last Admin: 05/27/18 13:37 Dose: Not Given Insulin Detemir (Levemir) 20 unit SC [facility] Last Admin: 05/26/18 21:28 Dose: 20 units Insulin Human Regular (Humulin R Low) 0 units SC [facility]; Protocol Last Admin: 05/27/18 13:04 Dose: Not Given Labetalol HCl (Trandate) 200 mg PO TID [facility] Last Admin: 05/27/18 10:11 Dose: 200 mg Magnesium Oxide (Mag-Ox) 400 mg PO BID [facility] Last Admin: 05/27/18 10:07 Dose: 400 mg Methylprednisolone (Solu-Medrol) 40 mg IVP DAILY [facility] Last Admin: 05/27/18 10:14 Dose: 40 mg Montelukast Sodium (Singulair) 10 mg PO [facility] Morphine Sulfate (Morphine) 2 mg IVP Q4H PRN PRN Reason: Pain, severe (8-10) Last Admin: 05/25/18 20:24 Dose: 2 mg Multivitamins (Thera Tab) 1 tab PO 0800 [facility] Last Admin: 05/27/18 10:18 Dose: 1 tab Nifedipine (Procardia Xl) 60 mg PO QPM [facility] Last Admin: 05/26/18 18:29 Dose: 60 mg Nystatin (Nystop Topical Powder) 0 gm TOP TID [facility] Last Admin: 05/27/18 13:39 Dose: 2 applic Pantoprazole Sodium (Protonix Ec Tab) 40 mg PO HS [facility] Pregabalin (Lyrica) 50 mg PO BID [facility] Last Admin: 05/27/18 10:08 Dose: 50 mg Risperidone (Risperdal Tab) 1 mg PO DAILY [facility]; Protocol Last Admin: 05/27/18 10:14 Dose: 1 mg Risperidone (Risperdal Tab) 1 mg PO HS [facility]; Protocol Last Admin: 05/26/18 21:29 Dose: 1 mg Saliva Substitute (Saliva Substitute) 0 ml PO 5XD PRN PRN Reason: DRY MOUTH Silver Sulfadiazine (Silvadene 1% 25 Gm) 0 gm TP BID [facility] Last Admin: 05/27/18 10:19 Dose: 25 gm Sodium Chloride (Brady Nasal [place]) 0 ml NS Q2H PRN PRN Reason: Nasal congestion - Labs Labs: 05/26/18 05:30 05/27/18 06:30 PT 15.0 SECONDS (9.4-12.5) H 05/11/18 13:45 INR 1.30 05/11/18 13:45 APTT 20.4 Seconds (25.1-36.5) L 05/11/18 13:45
--- NOTE | 2018-05-27 15:33 | PN ---
DATE: 05/27/2018 SUBJECTIVE: The patient is in bed in no acute distress. PHYSICAL EXAMINATION: VITAL SIGNS: Temperature is 98, blood pressure is 132/40 and respiratory rate of 18. HEENT: Unremarkable. NECK: Supple. LUNGS: Have decreased breath sounds. HEART: Normal S1 and S2. ABDOMEN: Soft and nontender. No rebound or guarding. LABORATORY EXAMINATION: White count is 8.1, hemoglobin of 9 and platelets of 325. Chemistries reveals a BUN of 73 and creatinine of 4.1. Urinalysis is noted. Microbiology reviewed. MEDICATIONS: Review of orders reveals the patient to be off of antibiotics. The patient is on Solu-Medrol. ASSESSMENT AND PLAN: This is a 62-year-old female with super morbid obesity, body mass index of 60, abdominal wall cellulitis, infected mesh, Pseudomonas and Celsa with acute renal failure on top of chronic renal disease, obstructive sleep apnea, diabetic, hypertensive, coronary artery disease, ventral wall hernia repair, off of antibiotics with an infected mesh. The patient refused in having infected mesh removed and currently off of antibiotics. However, the patient is at risk for developing nosocomial infections. Dr. Florian's note is reviewed. The patient with acute renal failure on top of chronic kidney disease, hypertension, coronary artery disease, pulmonary hypertension, super morbid obesity, chronic obstructive sleep apnea, chronic obstructive lung disease. We will follow with you. Lawrence Cheek MD
--- NOTE | 2018-05-27 17:03 | PN ---
DATE: 05/27/2018 REASON FOR CONSULTATION AND FOLLOWUP: Cardiac evaluation, history of congestive heart failure, transferred from senior living due to lethargy, chronic renal disease worsening on Eliquis. This note is in addition to dictated by nurse practitioner. Eliquis was on hold because of possible dialysis catheter to be placed. Question whether the patient should be resumed back on heparin, I said we will hold for Eliquis for 24 or 48 hours. If the patient does not take the dialysis catheter, we will resume back on Eliquis and discharge her, but if the patient needs dialysis, we will continue to hold and start heparin after for 24 to 48 hours observation. Discussed with discussed with nursing staff taking care of the patient. Interim continue baseline medication including Norvasc, aspirin, clonidine. We will reassess tomorrow. Thank you Dr. Florian for providing us the opportunity in taking care of the patient Pedro Guevara. Overall the patient's condition is critical, long-term prognosis is guarded. Pamela Guerrero MD
[2018-05-27] MEDS ORDERED: metOLazone 5 MG TAB PO STA (17:04)
[2018-05-27] MEDS: Budesonide 0.5 mg/2 ml Inhal Susp UD IH SCH (20:23)
--- NOTE | 2018-05-27 20:55 | PN ---
DATE: 05/27/2018 HOSPITAL VISIT ON TELEMETRY This is [facility]'s hospital visit for Dr. Faye. SUBJECTIVE: The patient is a 62-year-old female. Seen lying, awake, in bed. Still confused, but alert with family at the bedside reporting that she has difficulty breathing. Upon noticing oxygen, it was not humidified. We were asked for humidification of her oxygen which was done. The patient may also be a candidate for dialysis with her renal function compromised and not improving despite appropriate care by Dr. Dawn, Nephrology. However, her pain is now improved with the patient's pulmonary treatment as per Dr. Ayala, Pulmonology. OBJECTIVE/PHYSICAL EXAMINATION: VITAL SIGNS: Temperature 97.1, pulse 80, respirations 20, blood pressure 141/47, pulse oximetry of 95%. HEENT: Unremarkable. Tongue is moist. NECK: neck. The patient does not tolerate BiPAP, although it is recommended for her. HEART: Regular rate. LUNGS: Decreased breath sounds at the bases. ABDOMEN: Obese, soft. Viable colostomy with surgical dressing. EXTREMITIES: +1 edema of the feet bilaterally. NEUROLOGIC: Awake and alert, but confused. LABORATORY DATA: The patient's labs were done yesterday for CBC to be repeated in the morning. Her chem panel, however, was done with a potassium of 5.2, BUN of 73, creatinine of 4.1, calcium of 6.7. ASSESSMENT: For this patient is that of acute renal failure; hyperkalemia, improving; symptomatic anemia, improved, status post transfusion; postoperative revision of colostomy; hernia repair; congestive heart failure; aortic stenosis; history of deep venous thrombosis; pulmonary embolism, on Eliquis; history of rectal cancer; history of angioplasty; pulmonary hypertension; recent myocardial infarction; sacral decubitus; morbid obesity. PLAN: For this patient is to humidify her oxygen. We will continue her treatments as per Dr. Ayala's recommendation with her labs repeated in the morning with further recommendations as indicated. This is a complex patient with a comprehensive medically necessary and appropriate visit carried out in excess of 25 minutes with the patient and her family members and questions answered to their satisfaction. Zuhair Herrera MD [facility] # [id number]
[2018-05-27] MEDS: Pantoprazole 40 mg EC Tab PO SCH (21:32)
[2018-05-27] MEDS: Insulin Detemir 100 units/ml Vial (Levemir) SC SCH (21:37)
[2018-05-28 07:06] LABS: BASO # 0.04 K/mm3 (0.0-2.0); BASO % 0.4 % (0.0-3.0); EOS # 0.3 (0.0-0.7); EOS % 2.5 % (1.5-5.0); GRAN # 8.9 (1.4-6.5); HEMOGLOBIN 9.3 g/dL (12.0-16.0); LYMPH # 0.9 (1.2-3.4); LYMPH % 8.7 % (22.0-35.0); MEAN CELL VOLUME 94.6 fl (80.0-105.0); MEAN CORPUSCULAR HEMOGLOBIN 27.9 pg (25.0-35.0); MEAN CORPUSCULAR HGB CONC 29.5 g/dl (31.0-37.0); MONO # 0.6 (0.1-0.6); MONO % 5.4 % (1.0-6.0); RBC 3.33 10^6/uL (3.5-6.1); RED CELL DISTRIBUTION WIDTH 19.9 % (11.5-14.5); WHITE BLOOD COUNT 10.7 10^3/uL (4.5-11.0)
[2018-05-28 07:46] LABS: ALB/GLOB RATIO 0.7 (1.1-1.8); ALBUMIN 2.5 g/dL (3.0-4.8); CALCIUM 6.8 mg/dL (8.4-10.5)
[2018-05-28] MEDS: Insulin Reg-LOW-Coverage SC SCH ×4 (07:56→21:58)
[2018-05-28] MEDS: Acetylcysteine 20% Inhal Soln (4ml) IH SCH ×2 (08:01→19:42)
[2018-05-28] MEDS: Budesonide 0.5 mg/2 ml Inhal Susp UD IH SCH ×2 (08:01→19:43)
[2018-05-28] MEDS: Arformoterol 15 mcg/2 ml Inh Sol IH SCH ×2 (08:02→19:43)
[2018-05-28] MEDS ORDERED: Sod Polystyrene Sulf 15 gm/60 ml Susp PO ONE (08:25)
[2018-05-28] MEDS: MethylPREDNISolone 40 mg Vial IVP SCH (09:30)
[2018-05-28] MEDS: Magnesium Oxide 400 mg Tab UD PO SCH ×2 (09:30→17:17)
[2018-05-28] MEDS: Multivitamin Therapeutic Tab PO SCH (09:30)
--- NOTE | 2018-05-28 09:58 | CP.PCM.PCO ---
Physician Communication Note - Physician Communication Note Physician Communication Note: Dr. Mckeon is covering for VASU Pepper to place dialysis access
[2018-05-28] MEDS: Nystatin 100,000 Units/gm Topical Pow(15 gm) TOP SCH ×3 (10:27→17:57)
[2018-05-28] MEDS: Silver Sulfadiazine 1% Cream (25 gm) TP SCH ×2 (10:28→17:57)
[2018-05-28] MEDS ORDERED: Lidocaine 2% Inj (20ml) ONE (10:54)
[2018-05-28] MEDS ORDERED: Midazolam 2 MG/2 ML VIAL ONE (11:28)
--- NOTE | 2018-05-28 12:04 | PCM.SURG1 ---
Surgeon's Initial Post Op Note - Surgeon's Notes Surgeon: Albin Manager Machine: Dmitri Type of Anesthesia: Local Pre-Operative Diagnosis: SHELBI and pulm vasc congestion Operative Findings: Patent left IJV Post-Operative Diagnosis: Same as above Operation Performed: US and Flouro guided placement of left IJV non tunneled dialysis catheter. Specimen/Specimens Removed: None Estimated Blood Loss: EBL {In ML}: 1 Date of Surgery/Procedure: 05/28/18 Time of Surgery/Procedure: 12:00
--- NOTE | 2018-05-28 13:41 | PN ---
DATE: 05/28/2018 SUBJECTIVE: The patient is seen earlier today, in no acute distress, nontoxic. PHYSICAL EXAMINATION: VITAL SIGNS: Temperature is 98, blood pressure is 160/60 and respiratory rate of 18. HEENT: Unremarkable. NECK: Supple. LUNGS: Decreased breath sounds. HEART: Normal, S1 and S2. ABDOMEN: Soft and nontender. She does have chronic discharge from wound, malodorous. LABORATORY DATA: Reveals a 10,000 white count. Creatinine is 4.9. Urinalysis is noted. Microbiology is reviewed. Blood cultures are negative. ASSESSMENT AND PLAN: A 62-year-old female with super morbid obesity, BMI of 60, abdominal wall cellulitis, infected mesh, Pseudomonas and Celsa with acute renal failure on top of chronic renal disease, obstructive sleep apnea, diabetic, hypertensive, coronary artery disease, ventral wall hernia repair, currently off of antibiotics and the patient with acute renal failure on chronic kidney disease, hypertension, coronary artery disease, pulmonary hypertension, super morbid obesity, BMI of 52, chronic obstructive lung disease. We will keep the patient off of antibiotics, the patient is at risk for developing nosocomial infections also with a presence of mesh, she is at risk for developing systemic presentation. Lawrence Cheek MD
--- NOTE | 2018-05-28 13:44 | CP.PCM.PN ---
Subjective - Date & Time of Evaluation Date of Evaluation: 05/28/18 Time of Evaluation: 13:42 - Subjective Subjective: Nephrology Consultation Note: Assessment: worsening SHELBI ? pre-renal/ATN versus AIN as also with peripheral eosinophilia and eosinolphiuria, started HD 05/28/18 pulmonary congestion with fluid overload. hypomag, hyperphosphatemia hyperkalemia SBO s/p ex lap with ? MESH infection AMS, delirium left adrenal adenoma, Rt renal hyperdense cyst chronic hypercapnic respi failure Diabetic chronic Kidney Disease (E11.22) Hypertensive Chronic Kidney Disease (I12.9) Chronic Kidney Disease (N18.3) Stage 3 with 2.4 gm proteinuria (R80.9) likely due to DM/HTN/Obesity Anemia Vit D def morbid obesity, CAD s/p stent, COPD/SUMMER, rectal ca s/p colostomy Plan pt remains oligoanuric. plan for HD initiation 05/28/18, d/w son and agreed/consented. next HD tomorrow can resume eliquis from renal perspective HTN control on multiple meds. will d/c clonidine patch. change to PRN Monitor Input/Output, daily weights and renal function with basic metabolic panel PRBC as needed d/w heme and okay to use KAVYA from heme perspective. on weekly aransep supplement lytes as needed d/w ID re; concerns for AIN, eosinophilia and antibiotics. had d/c abx pt started on steroids empirically but will be hesitant to give them more than few days due to her co-morbidities and current clinical condition. pt not a candidate for kidney biopsy Adrenal adenoma work up with plasma renin/aldosterone, plasma metanephrine NEGATIVE. outpt 1 mg dexa suppression test repeat renal sono in 6 months to assess her Rt renal cyst Dose meds/antibiotics for reduced GFR. Avoid fleets enema/magnesium based laxatives. Avoid nephrotoxins/NSAIDs/ iodinated contrast (unless needed emergently) Glycemic control Further work up/management as per primary team overall prognosis poor/guarded. Thanks for allowing me to participate in care of your patient. Will follow patient with you. Please call if any Qs. had d/w team Dr Dae Dawn Office: [phone] Chief Complaint;AMS Reason for consult: Acute Kidney Injury, CKD 3 HPI: Pt is a 62 F with hx of diabetes Mellitus (15 years), hypertension (years), CKD 3 with baseline cr 1.2-1.3 recently admitted after complicated abdominal surgery that represents w/ abdominal pain. Was recommended to get mesh removed last admission but refusing and still refusing per surgical service. She does not know why she is in the hospital. She denies n/v. She endorses reduced po intake. ROS: pt not able to provide much reliably. c/o sob today. Physical Examination: seen on HD General Appearance: comfortable, morbidly obese. not in acute respi distress confused Vitals reviewed and noted as below Head; Atraumatic, normocephalic EYES: Pupils are equal, round and reactive to light accommodation. Eye muscles and extraocular movement intact. Sclera is anicteric. Neck; supple no lymphadenopathy, no thyromegaly or bruit Lungs: increased respiratory rate/effort. Breath sounds bilateral equal, diminished at bases but overall limited exam due to her obesity Heart: normal rate. s1s2 normal. No rub or gallop. Extremities: 2+ edema, No varicose veins Neurological: Patient is confused Skin: Warm and dry. Normal turgor. No rash. Palpitation: Normal elasticity for age Abdomen: Abdomen is + colostomy. midline donita + Psych: deferred MSK: no joint tenderness or swelling. Digits and nails normal, no deformity : kidney or bladder not palpable. has linares left IJ shiley + Labs/imaging reviewed. Past medical history, past surgical history, family history, social history, allergy reviewed and noted as below Family hx: no hx of CKD. Rest non-contributory Objective - Vital Signs/Intake and Output Vital Signs (last 24 hours): Temp Pulse Resp BP Pulse Ox 98.3 F 84 20 165/62 H 92 L 05/28/18 05:58 05/28/18 08:59 05/28/18 05:58 05/28/18 08:59 05/28/18 05:58 Intake and Output: 05/28/18 05/28/18 06:59 18:59 Intake Total 120 Output Total 100 Balance 20 - Medications Medications: Current Medications Acetylcysteine (Acetylcysteine 20%) 4 ml IH BIDRESP JR Last Admin: 05/28/18 08:01 Dose: 4 ml Albuterol/Ipratropium (Duoneb 3 Mg/0.5 Mg (3 Ml) Ud) 3 ml IH [id number] PRN PRN Reason: Shortness of Breath Last Admin: 05/27/18 20:26 Dose: 3 ml Arformoterol Tartrate (Brovana) 15 mcg IH [id number] [facility] Last Admin: 05/28/18 08:02 Dose: 15 mcg Budesonide (Pulmicort Respules) 0.5 mg IH [id number] [facility] Last Admin: 05/28/18 08:01 Dose: 0.5 mg Calcium Acetate (Phoslo) 2,001 mg PO WM [facility] Last Admin: 05/28/18 12:50 Dose: Not Given Clonazepam (Klonopin) 0.5 mg PO BID PRN; Protocol PRN Reason: Anxiety Last Admin: 05/28/18 03:03 Dose: 0.5 mg Darbepoetin Timothy (Aranesp) 150 mcg SC QWK [facility] Last Admin: 05/21/18 09:55 Dose: 150 mcg Docusate Sodium (Colace) 100 mg PO TID [facility] Last Admin: 05/28/18 09:30 Dose: 100 mg Hydralazine HCl (Apresoline) 100 mg PO TID [facility] Last Admin: 05/28/18 09:30 Dose: 100 mg Insulin Detemir (Levemir) 20 unit SC [facility] Last Admin: 05/27/18 21:37 Dose: Not Given Insulin Human Regular (Humulin R Low) 0 units SC [facility]; Protocol Last Admin: 05/28/18 12:44 Dose: 1 unit Labetalol HCl (Trandate) 200 mg PO TID [facility] Last Admin: 05/28/18 09:30 Dose: 200 mg Magnesium Oxide (Mag-Ox) 400 mg PO BID [facility] Last Admin: 05/28/18 09:30 Dose: 400 mg Methylprednisolone (Solu-Medrol) 40 mg IVP DAILY [facility] Last Admin: 05/28/18 09:30 Dose: 40 mg Montelukast Sodium (Singulair) 10 mg PO HS [facility] Last Admin: 05/27/18 21:32 Dose: Not Given Morphine Sulfate (Morphine) 2 mg IVP Q4H PRN PRN Reason: Pain, severe (8-10) Last Admin: 05/25/18 20:24 Dose: 2 mg Multivitamins (Thera Tab) 1 tab PO 0800 [facility] Last Admin: 05/28/18 09:30 Dose: 1 tab Nystatin (Nystop Topical Powder) 0 gm TOP TID [facility] Last Admin: 05/27/18 13:39 Dose: 2 applic Pantoprazole Sodium (Protonix Ec Tab) 40 mg PO HS [facility] Last Admin: 05/27/18 21:32 Dose: Not Given Pregabalin (Lyrica) 50 mg PO BID [facility] Last Admin: 05/28/18 09:30 Dose: 50 mg Risperidone (Risperdal Tab) 1 mg PO DAILY [facility]; Protocol Last Admin: 05/28/18 09:30 Dose: 1 mg Risperidone (Risperdal Tab) 1 mg PO HS [facility]; Protocol Last Admin: 05/27/18 21:32 Dose: Not Given Saliva Substitute (Saliva Substitute) 0 ml PO 5XD PRN PRN Reason: DRY MOUTH Silver Sulfadiazine (Silvadene 1% 25 Gm) 0 gm TP BID [facility] Last Admin: 05/27/18 17:42 Dose: 25 gm Sodium Chloride ([place] Nasal [place]) 0 ml NS Q2H PRN PRN Reason: Nasal congestion - Labs Labs: 05/28/18 06:00 05/28/18 06:00 PT 15.0 SECONDS (9.4-12.5) H 05/11/18 13:45 INR 1.30 05/11/18 13:45 APTT 20.4 Seconds (25.1-36.5) L 05/11/18 13:45
--- NOTE | 2018-05-28 15:02 | PN ---
DATE: 05/28/2018 REASON FOR CONSULTATION AND FOLLOWUP: Cardiac evaluation, history of congestive heart failure, transferred [facility] [place] [facility] due to lethargy, history of coronary artery disease, history of worsening renal insufficiency, was on Eliquis. SUBJECTIVE: The patient denied any chest pain, shortness of breath, or any palpitation. She is not in apparent distress, though, the patient off and on. PHYSICAL EXAMINATION: VITAL SIGNS: Temperature is afebrile, heart rate 84, and blood pressure 105/44. HEENT: PERRLA. Extraocular muscles are intact. NECK: Supple. No carotid bruit or thyromegaly. CHEST: Clear to auscultation. HEART: S1 and S2, regular. ABDOMEN: Soft. EXTREMITIES: Clubbing and cyanosis negative. LABORATORY DATA: Blood workup as follows: WBC 10.7, hemoglobin 9.3, hematocrit 31.5, and platelet count 267. Chemistry showed sodium 131, potassium 5, carbon dioxide 23, anion gap of 13, BUN 75, and creatinine 4.9. IMPRESSION AND PLAN: This is a 62-year-old morbidly obese female with past medical history significant for worsening renal insufficiency, the patient was on Eliquis for deep vein thrombosis, pulmonary embolism, on hold for possible placement of Port-A-Cath dialysis catheter. Yesterday, creatinine was 4.1, so Port-A-Cath was held. If the patient needs we will hold it for tomorrow and after that we will restart 2.5 mg renal dose of Eliquis. But, if the prolonged holding of Eliquis needs, we will start heparin. The patient has a history of coronary artery disease, history of small bowel resection, and history of deep vein thrombosis and pulmonary embolism in the past. Overall, the patient's condition is critical. Long-term prognosis is guarded. We will continue hydralazine. Avoid nephrotoxic medication. We will follow with you. Thank you Dr. Florian for providing the opportunity in taking care of the patient, Pedro Guevara. Pamela Guerrero MD
[2018-05-28] MEDS: Darbepoetin Alfa 100 mcg/ml Inj SC SCH (19:02)
--- NOTE | 2018-05-28 19:57 | PN ---
DATE: 05/28/2018 This is [facility] visit on the telemetry floor. For Dr. Faye. SUBJECTIVE: The patient is a 62-year-old female for dialysis catheter placement today with the patient having continued worsening of her kidney failure with Dr. Dawn recommending treatment at this time. Otherwise, the patient is resting comfortably. OBJECTIVE/PHYSICAL EXAMINATION: VITAL SIGNS: Temperature 98.3, pulse 84, respirations 20, blood pressure 105/44, pulse ox 92%. HEENT: Unremarkable. NECK: Supple with a bull neck. HEART: Regular rate. LUNGS: Decreased breath sounds at the bases. ABDOMEN: Obese, soft. Viable colostomy with surgical dressing noted. EXTREMITIES: + 1 edema in the feet, chronic. NEUROLOGIC: Awake, but confused. LABORATORY DATA: The patient's labs were done. White blood count of 10.7, hemoglobin 9.3, hematocrit 31.5, platelet count of 267,000. Metabolic panel showing a potassium of 5.6 today, calcium of 6.8, BUN of 75, creatinine of 4.9 up from 4.1 yesterday, nonfasting glucose 133. AST of 39. With scant urine output as reported. ASSESSMENT: The assessment for this patient is that of acute renal failure for dialysis with internal jugular vein dialysis catheter on the left to be placed today; hyperkalemia secondary to above; symptomatic anemia improved posttransfusion; post-revision colostomy hernia repair with mesh, abdominal wall; congestive heart failure; history of atherosclerotic cardiovascular disease; aortic stenosis; history of deep venous thrombosis; pulmonary embolism, on Eliquis; history of rectal cancer; history of angioplasty; pulmonary hypertension; recent myocardial infarction; sacral decubitus; morbid obesity. PLAN: Plan for this patient is as above to continue her present medical regimen with clonidine being discontinued as per Dr. Dawn, her risk management consultant, as this may be also contributing to her confusion at times. We will monitor clinically with labs. Prognosis for this patient is guarded. This is a complex patient with a comprehensive medically necessary and appropriate visit carried out in excess of 15 minutes. Zuhair Herrera MD
[2018-05-28] MEDS: Pantoprazole 40 mg EC Tab PO SCH (21:36)
--- NOTE | 2018-05-28 22:13 | PN ---
DATE: 05/28/2018 SUBJECTIVE: The patient complained of short of breath. She is very anxious about her conditions and when we are going to start dialysis, already stat consult with Vascular, Interventional Radiology has been done and I spoke to him. PHYSICAL EXAMINATION: VITAL SIGNS: Temperature is 98.3, heart rate is 78, blood pressure is 165/62, respirations are 20, and saturation is 95%. HEAD AND NECK: Normal. No JVD. No thyromegaly. CHEST: Clear. Few rhonchi bilateral. CARDIAC: First sound and second sound normal. No murmur, rub or gallop. ABDOMEN: Obese with right side colostomy and midline incisions, dressing applied. EXTREMITIES: Lower extremities, bilateral leg edema on the dorsum of the foot. LABORATORY DATA: Sodium 131, potassium 5.6, chloride 100, bicarb 23, BUN 75, creatinine 4.9, blood sugar 141, and calcium 6.8. The patient also had CBC shows white count 10.7, hemoglobin 9.3, hematocrit 31.5, and platelets 267. IMPRESSION AND PLAN: 1. Acute interstitial nephritis on top of chronic kidney disease, underlying diabetes, and hypertension. Plan is to start hemodialysis. The patient is oliguric and will need hemodialysis to relieve her symptoms. Discussed with interventional radiologist and with residential worker on the case, work with Dr. Mckeon, General Surgery. 2. Chronic hypertension, stable. 3. Insulin-dependent diabetes, stable, continue insulin coverage. 4. Obstructive sleep apnea, chronic obstructive pulmonary disease, and morbid obesity. Continue bilevel positive airway pressure while sleep. 5. Anemia, hypercoagulable state. The patient is off Eliquis for almost 36 hours or 2 days already, so we will proceed with hemodialysis catheter. Discussed with interventional radiologist. 6. Hypertension, hypercholesterolemia, generalized weakness, congestive heart failure, right-sided heart failure and pulmonary hypertension. Continue current therapy. The patient is stable psychologically after I spoke with her. She feels better. She was oriented with the procedure and plan. Elroy Florian MD
[2018-05-28] MEDS: Insulin Detemir 100 units/ml Vial (Levemir) SC SCH (22:55)
[2018-05-28] MEDS: Morphine 2 mg/ml ISec IVP PRN (23:43)
[2018-05-29] MEDS ORDERED: Morphine 4 mg/ml ISec IVP STA (06:06)
--- NOTE | 2018-05-29 06:36 | CP.PCM.PN ---
Subjective - Date & Time of Evaluation Date of Evaluation: 05/29/18 Time of Evaluation: 06:15 - Subjective Subjective: Awake, Lying in bed, no distress, alert, moaning Reason for consultation and follow up: Cardiac evaluation of history of congestive heart failure, transferred from residential due to lethargy, chronic kidney disease,started on hemodialysis Seen and examined by me and Dr. Guerrero Objective - Vital Signs/Intake and Output Vital Signs (last 24 hours): Temp Pulse Resp BP Pulse Ox 98.0 F 76 21 155/56 H 97 05/29/18 06:00 05/29/18 06:00 05/29/18 06:00 05/29/18 06:00 05/29/18 06:00 - Medications Medications: Current Medications Acetylcysteine (Acetylcysteine 20%) 4 ml IH BIDRESP [facility] Last Admin: 05/28/18 19:42 Dose: 4 ml Albuterol/Ipratropium (Duoneb 3 Mg/0.5 Mg (3 Ml) Ud) 3 ml IH [id number] PRN PRN Reason: Shortness of Breath Last Admin: 05/27/18 20:26 Dose: 3 ml Arformoterol Tartrate (Brovana) 15 mcg IH [id number] [facility] Last Admin: 05/28/18 19:43 Dose: 15 mcg Budesonide (Pulmicort Respules) 0.5 mg IH [id number] [facility] Last Admin: 05/28/18 19:43 Dose: 0.5 mg Calcium Acetate (Phoslo) 2,001 mg PO WM [facility] Last Admin: 05/28/18 17:16 Dose: 2,001 mg Clonazepam (Klonopin) 0.5 mg PO BID PRN; Protocol PRN Reason: Anxiety Last Admin: 05/28/18 22:00 Dose: 0.5 mg Clonidine HCl (Catapres) 0.1 mg PO Q6 PRN PRN Reason: Other Darbepoetin Timothy (Aranesp) 150 mcg SC QWK [facility] Last Admin: 05/28/18 19:02 Dose: 150 mcg Docusate Sodium (Colace) 100 mg PO TID [facility] Last Admin: 05/28/18 17:17 Dose: 100 mg Hydralazine HCl (Apresoline) 100 mg PO TID [facility] Last Admin: 05/28/18 17:19 Dose: 100 mg Insulin Detemir (Levemir) 20 unit SC [facility] Last Admin: 05/28/18 22:55 Dose: Not Given Insulin Human Regular (Humulin R Low) 0 units SC [facility]; Protocol Last Admin: 05/28/18 21:58 Dose: Not Given Labetalol HCl (Trandate) 200 mg PO TID [facility] Last Admin: 05/28/18 17:21 Dose: 200 mg Magnesium Oxide (Mag-Ox) 400 mg PO BID [facility] Last Admin: 05/28/18 17:17 Dose: 400 mg Methylprednisolone (Solu-Medrol) 30 mg IVP DAILY [facility] Montelukast Sodium (Singulair) 10 mg PO [facility] Last Admin: 05/28/18 21:36 Dose: 10 mg Morphine Sulfate (Morphine) 2 mg IVP Q4H PRN PRN Reason: Pain, severe (8-10) Last Admin: 05/28/18 23:43 Dose: 2 mg Multivitamins (Thera Tab) 1 tab PO 0800 [facility] Last Admin: 05/28/18 09:30 Dose: 1 tab Nystatin (Nystop Topical Powder) 0 gm TOP TID [facility] Last Admin: 05/28/18 17:57 Dose: 1 applic Pantoprazole Sodium (Protonix Ec Tab) 40 mg PO [facility] Last Admin: 05/28/18 21:36 Dose: 40 mg Pregabalin (Lyrica) 50 mg PO BID [facility] Last Admin: 05/28/18 17:17 Dose: 50 mg Risperidone (Risperdal Tab) 1 mg PO DAILY [facility]; Protocol Last Admin: 05/28/18 09:30 Dose: 1 mg Risperidone (Risperdal Tab) 1 mg PO [facility]; Protocol Last Admin: 05/28/18 21:36 Dose: 1 mg Saliva Substitute (Saliva Substitute) 0 ml PO 5XD PRN PRN Reason: DRY MOUTH Silver Sulfadiazine (Silvadene 1% 25 Gm) 0 gm TP BID [facility] Last Admin: 05/28/18 17:57 Dose: 1 gm Sodium Chloride ([place] Nasal [place]) 0 ml NS Q2H PRN PRN Reason: Nasal congestion - Labs Labs: 05/28/18 06:00 05/28/18 06:00 PT 15.0 SECONDS (9.4-12.5) H 05/11/18 13:45 INR 1.30 05/11/18 13:45 APTT 20.4 Seconds (25.1-36.5) L 05/11/18 13:45 - Constitutional Appears: Non-toxic, No Acute Distress - Head Exam Head Exam: NORMAL INSPECTION, NORMOCEPHALIC - Eye Exam Eye Exam: Normal appearance Pupil Exam: NORMAL ACCOMODATION - Respiratory Exam Respiratory Exam: Decreased Breath Sounds, Clear to Ausculation Bilateral, NORMAL BREATHING PATTERN - Cardiovascular Exam Cardiovascular Exam: +S1, +S2 Additional comments: right chest port left IJ shiley catheter - GI/Abdominal Exam GI & Abdominal Exam: Soft, Normal Bowel Sounds Additional comments: colostomy - Extremities Exam Additional comments: 3-4+edema - Neurological Exam Neurological Exam: Alert, Awake - Psychiatric Exam Psychiatric exam: Anxious - Skin Skin Exam: Normal Color, Warm Assessment and Plan - Assessment and Plan (Free Text) Assessment: A 62 year old morbidly obese female who got transferred to [facility] from residential due to altered mental status. Patient is known to service from previous multiple admissions. History of coronary artery disease with stent of circumflex,hypertension,hyperlipidemia,diabetes,sleep apnea,COPD, congestive heart failure, DVT/PE. History of bowel resection in the past with colostomy. She was admitted to [facility] due to small bowel obstruction and on 04/16/18 she had explor-lap and lysis of adhesions and ventral hernia repair with revision of colostomy (Dr. Mckeon).Postoperatively, patient had infection involving th mesh placed for the hernia repair and it was recommended that she undergo an additional procedure to have the mesh removed however patient refused surgical procedure. She was stablized and transferred to [facility]. Chest X ray showed severe cardiomegaly,moderate to severe pulmonary congestion.Not in respiratory distress, On nasal cannula 4l/min. Troponin 0.14/.15, denies chest pain, EKG- normal sinus rhythm, elevated due to renal insuffiency. Will treat medically. Surgical follow up for abdominal wound. Symptoms clinically improved. Cardiac status stable.Repeat Chest X ray showed improved vascular congestion. Being followed up by Nephrology for worsening renal status. Had hemodialysis yesterday. Eliquis held for shiley insertion. Will restart. Plan: Had shiley insertion left IJ Had hemodialysis yesterday and pulled 2.5 liters of fluid No distress, denies chest pain Cardiac status stable No distress, Denies chest pain Heart rate controlled Blood pressure controlled Will resume Eliquis Followed up by Renal On Hydralazine 100mg TID,Labetolol 200 mg TID, Continue current treatment Continue current medications Will follow up Plan and treatment discussed with Dr. Guerrero
[2018-05-29] MEDS: Arformoterol 15 mcg/2 ml Inh Sol IH SCH ×2 (07:43→19:42)
[2018-05-29] MEDS: Acetylcysteine 20% Inhal Soln (4ml) IH SCH ×2 (07:43→19:42)
[2018-05-29] MEDS: Budesonide 0.5 mg/2 ml Inhal Susp UD IH SCH ×2 (07:44→19:42)
[2018-05-29] MEDS: Insulin Reg-LOW-Coverage SC SCH ×4 (08:11→22:01)
--- NOTE | 2018-05-29 09:16 | PN ---
DATE: 05/28/2018 SUBJECTIVE: She is seen and examined in dialysis bed, feels okay, sleepy, arousable. No specific pain. No nausea, no vomiting, no diarrhea, poor appetite. No leg swelling. OBJECTIVE: GENERAL: No acute distress. VITAL SIGNS: Temp is 98, heart rate 84, respiratory rate is 20, blood pressure 167/67, pulse ox 92% on 2 L nasal cannula. HEENT: Moist mucous membrane. Crowded airway. NECK: Supple. No JVD. LUNGS: Have crackles at the bases. HEART: S1 and S2. ABDOMEN: Colostomy bag area looks okay. Wound has dressing. EXTREMITIES: No edema. NEUROLOGIC: Awake, alert, does follow simple command. MEDICATIONS: She is on Mucomyst inhaled twice a day, also getting hydralazine 100 mg three times a day, Aranesp 150 mcg weekly, Brovana inhaled twice a day, Catapres 0.1 mg q.6 hours p.r.n., Colace 100 mg three times a day, DuoNeb every 6 hours p.r.n., insulin coverage, Klonopin 0.5 mg twice a day, Levemir 20 units SubQ at bedtime, Lyrica 50 mg twice a day, mag oxide 400 mg twice a day, morphine 2 mg q.4 hours p.r.n., nystatin topically affected area, Protonix 40 mg at bedtime, Pulmicort inhaled twice a day, Risperdal 1 mg daily, also Risperdal 1 mg at bedtime, saliva substitute mouth five times a day p.r.n., Singulair 10 mg daily, Solu-Medrol 40 mg daily, multivitamins daily, labetalol 200 mg three times a day. LABORATORY DATA: Shows hemoglobin 9.3, hematocrit 31.5, WBC 10.7, platelet count is 267. Sodium 131, potassium 5.6, chloride 100, bicarbonate 23, BUN 75, creatinine 4.9, glucose 133, calcium is 6.8. AST 39, ALT 16, alk phos is 160. Albumin is 2.5. Microbiology, blood culture from May 21, there is no growth. IMPRESSION AND PLAN: Status post laparotomy for small bowel obstruction, relocation of colostomy, sleep apnea syndrome, hypoventilation syndrome, renal failure, now requiring dialysis, history of pulmonary embolism, deep venous thrombosis, chronic lung disease, history of mesh infection in the abdomen, pulmonary hypertension, morbid obesity. Pulmonary point of view, doing well. Decrease Solu-Medrol to 30 mg daily inhaled bronchodilator. Encourage BiPAP use. Nephrology followup. GI surgical followup. Gastric and DVT prophylaxis. Follow up labs in the morning. The labs presented above is before dialysis. Thank you and we will follow with you. Pamela Ayala MD
--- NOTE | 2018-05-29 09:37 | PN ---
DATE: 05/27/2018 CHIEF COMPLAINT: The patient complained of dyspnea. HISTORY OF PRESENT ILLNESS: This is a 62-year-old female. She has been complaining of short of breath since morning, getting worse. The patient's urine output is down. She is on IV fluid. She stopped making urine and kidney worsening. She denied any chest pain, any fever, any nausea, any vomiting. PHYSICAL EXAMINATION VITAL SIGNS: On 05/27/2018, date of this note, her temperature was 97.7, heart rate 88, blood pressure 141/47, respirations 20, saturation 96% on 2 L. HEAD AND NECK: Normal. No JVD. No thyromegaly. CHEST: Clear bilateral. CARDIAC: First sound and second sound normal. ABDOMEN: Obese. Colostomy on right side, midline incisions. EXTREMITIES: No edema. NEUROLOGIC: Normal. LABORATORY STUDIES: Sodium 132, potassium 5.2, chloride 101, bicarb 23, BUN 73, creatinine 4.1, her calcium 6.7, her glucose 140. IMPRESSION AND PLAN: 1. Congestive heart failure, probably fluid overload. The patient does have acute renal failure with decreased urine output and IV fluid. We will hold off on IV fluid. We will try to do dialysis. Lasix was given, 120, and we are going to give Zaroxolyn 5 mg prior to that and probably consult Dr. Ortega for catheter dialysis, Vascular surgeon. 2. Insulin-dependent diabetes, stable. The patient is not eating much. Continue insulin coverage. Continue current medications. 3. Acute renal failure, acute allergic interstitial nephritis. The patient is on steroids, seems not responding well. Creatinine is going up and today is slightly better, but clinically, the patient is worse. We will continue current medications. Hemodialysis is planned. The patient agrees, understand risks and benefits. 4. Coronary artery disease, pulmonary hypertension, right-sided heart failure. 5. Obstructive sleep apnea, morbid obesity. 6. Hypercholesterolemia, hypertension, difficult to control. Continue current medications. 7. Status post small bowel obstructions, internal reduction with hernia repair and seems doing well. Wound seems okay. No discharge. Continue current medication. 8. Severe anxiety with agitations and delusion sometimes. Continue Risperdal as prescribed 1 mg p.o. daily and 1 mg p.o. every night. Continue current therapy. Continue inhaled bronchodilators and other medications. The patient is off of antibiotics. Elroy Florian MD
--- NOTE | 2018-05-29 09:58 | PN ---
DATE: 05/27/2018 SUBJECTIVE: The patient is a 62-year-old Polish female who has been exhibiting problematic behavior in that she cries out incessantly intermittently. Case reviewed with nursing. I have previously noted that the patient has been exhibiting a deteriorating mental state including impaired memory for approximately 3 years. Nursing notes that the patient also a long time ago had similar behavior of crying out. She presently is requiring dialysis. She reportedly keeps asking for food. The patient is on a BiPAP machine and has a colostomy bag. Psychotropically, she remains on Klonopin 0.5 mg b.i.d. p.r.n., Lyrica 50 mg b.i.d., morphine 2 mg IV push every 4 hours p.r.n., Risperdal 1 mg a.m. and at bedtime. The patient has been noted to have pulmonary congestion with fluid overload. It was noted that at the last admission, it was recommended that she have her abdominal mesh removed, but she refused this. Blood sugar 144 today. Blood pressure 141/47, pulse 88, temperature 97.1, and respiratory rate 18. Eusebio Mendoza MD/ PhD
[2018-05-29] MEDS: Multivitamin Therapeutic Tab PO SCH (10:20)
[2018-05-29] MEDS: MethylPREDNISolone 40 mg Vial IVP SCH (10:59)
[2018-05-29] MEDS: Nystatin 100,000 Units/gm Topical Pow(15 gm) TOP SCH ×2 (11:46→14:03)
[2018-05-29] MEDS: Silver Sulfadiazine 1% Cream (25 gm) TP SCH (11:46)
[2018-05-29] MEDS: Magnesium Oxide 400 mg Tab UD PO SCH ×2 (11:46→18:00)
--- NOTE | 2018-05-29 12:17 | PN ---
DATE: 05/29/2018 PULMONARY PROGRESS NOTE REFERRING PHYSICIAN: Dr. Florian. SUBJECTIVE: The patient is lying in bed on, asleep, BiPAP machine in place. No acute distress. No overnight events reported. No hemoptysis, hematuria, emesis or diarrhea reported. OBJECTIVE: GENERAL: No acute distress. VITAL SIGNS: Blood pressure 155/56, pulse rate 76 temperature 98 and oxygen saturation 97%. HEENT: Moist mucous membranes. Crowded airway. NECK: Supple. No JVD. LUNGS: Few rhonchi bilaterally. CARDIOVASCULAR: S1 and S2, audible. ABDOMEN: Soft. Colostomy present with soft stools. Surgical wound were dressing in place. EXTREMITIES: Trace bilateral lower extremities edema. NEUROLOGIC: Her sleep is easily arousable. Follows simple commands. MEDICATIONS: Reviewed. Mucomyst 5 mL inhalation twice a day, DuoNeb 3 mL inhalation every 6 hours p.r.n., Eliquis 2.5 mg twice a day, Brovana 15 mcg every 12 hours, Pulmicort 0.5 mg inhalation every 12 hours, calcium acetate 2001 mg Wednesdays and Mondays, Klonopin 0.5 mg twice a day p.r.n., clonidine 0.1 mg every 6 hours p.r.n., Aranesp 150 mcg subcutaneous weekly, Colace 100 mg three times a day, hydralazine 100 mg three times a day, Levemir 20 units at bedtime, Humulin R sliding scale a.c. at bedtime, labetalol 200 mg three times a day, magnesium oxide 400 mg twice a day, Solu-Medrol 30 mg IV push daily, Singulair 10 mg at bedtime, morphine sulfate 2 mg IV push every 4 hours p.r.n., multivitamin 1 tab daily, nystatin topically 3 times a day affected area, Protonix 40 mg at bedtime, Lyrica 50 mg twice a day, Risperdal 1 mg at daily, Risperdal 1 mg at bedtime, saliva substitute 5 times a day p.r.n., Silvadene topically twice a day, Dundy nasal spray every 2 hours p.r.n. LABORATORY DATA: Reviewed. No new labs since yesterday. IMPRESSION AND PLAN: Status post laparotomy for small bowel obstruction, relocation of colostomy, sleep apnea syndrome, hypoventilation syndrome, renal failure, now requiring dialysis, history of pulmonary embolism, deep venous thrombosis, chronic lung disease, history of mesh infection in the abdomen, pulmonary hypertension, morbid obesity. Pulmonary point of view, continue steroids. Continue inhaled bronchodilators. Encourage BiPAP use at bedtime. Nephrology followup. Gastric prophylaxis and deep venous thrombosis prophylaxis. GI surgical followup. Need to monitor hemoglobin and hematocrit closely. Monitor labs closely. This patient was seen and examined by Dr. Ayala. Discussed assessment and plan as described above. Thank you for this consult. We will follow with you. Breezy Schafer APN Pamela Ayala MD
--- NOTE | 2018-05-29 12:24 | CP.PCM.PN ---
Subjective - Date & Time of Evaluation Date of Evaluation: 05/29/18 Time of Evaluation: 10:15 - Subjective Subjective: No fevers, not in distress. Objective - Vital Signs/Intake and Output Vital Signs (last 24 hours): Temp Pulse Resp BP Pulse Ox 98.0 F 68 21 155/56 H 97 05/29/18 06:00 05/29/18 07:45 05/29/18 06:00 05/29/18 06:00 05/29/18 06:00 Intake and Output: 05/29/18 05/29/18 06:59 18:59 Intake Total 240 Output Total 100 Balance 140 - Medications Medications: Current Medications Acetylcysteine (Acetylcysteine 20%) 4 ml IH BIDRESP [facility] Last Admin: 05/29/18 07:43 Dose: 4 ml Albuterol/Ipratropium (Duoneb 3 Mg/0.5 Mg (3 Ml) Ud) 3 ml IH [id number] PRN PRN Reason: Shortness of Breath Last Admin: 05/27/18 20:26 Dose: 3 ml Apixaban (Eliquis) 2.5 mg PO BID [facility]; Protocol Arformoterol Tartrate (Brovana) 15 mcg IH [id number] [facility] [place] Last Admin: 05/29/18 07:43 Dose: 15 mcg Budesonide (Pulmicort Respules) 0.5 mg IH [id number] [facility] [place] Last Admin: 05/29/18 07:44 Dose: 0.5 mg Calcium Acetate (Phoslo) 2,001 mg PO WM [facility] [place] Last Admin: 05/29/18 10:20 Dose: Not Given Clonazepam (Klonopin) 0.5 mg PO BID PRN; Protocol PRN Reason: Anxiety Last Admin: 05/28/18 22:00 Dose: 0.5 mg Clonidine HCl (Catapres) 0.1 mg PO Q6 PRN PRN Reason: Other Darbepoetin Timothy (Aranesp) 150 mcg SC QWK [facility] [place] Last Admin: 05/28/18 19:02 Dose: 150 mcg Docusate Sodium (Colace) 100 mg PO TID [facility] [place] Last Admin: 05/29/18 11:45 Dose: Not Given Hydralazine HCl (Apresoline) 100 mg PO TID [facility] [place] Last Admin: 05/29/18 11:45 Dose: Not Given Insulin Detemir (Levemir) 20 unit SC [facility] Last Admin: 05/28/18 22:55 Dose: Not Given Insulin Human Regular (Humulin R Low) 0 units SC [facility]; Protocol Last Admin: 05/29/18 12:15 Dose: Not Given Labetalol HCl (Trandate) 200 mg PO TID [facility] [place] Last Admin: 05/29/18 11:47 Dose: Not Given Magnesium Oxide (Mag-Ox) 400 mg PO BID [facility] Last Admin: 05/29/18 11:46 Dose: Not Given Methylprednisolone (Solu-Medrol) 30 mg IVP DAILY [facility] Montelukast Sodium (Singulair) 10 mg PO [facility] Last Admin: 05/28/18 21:36 Dose: 10 mg Morphine Sulfate (Morphine) 2 mg IVP Q4H PRN PRN Reason: Pain, severe (8-10) Last Admin: 05/28/18 23:43 Dose: 2 mg Multivitamins (Thera Tab) 1 tab PO 0800 [facility] Last Admin: 05/29/18 10:20 Dose: Not Given Nystatin (Nystop Topical Powder) 0 gm TOP TID [facility] Last Admin: 05/29/18 11:46 Dose: Not Given Pantoprazole Sodium (Protonix Ec Tab) 40 mg PO [facility] Last Admin: 05/28/18 21:36 Dose: 40 mg Pregabalin (Lyrica) 50 mg PO BID [facility] Last Admin: 05/29/18 11:46 Dose: Not Given Risperidone (Risperdal Tab) 1 mg PO DAILY [facility]; Protocol Last Admin: 05/29/18 11:46 Dose: Not Given Risperidone (Risperdal Tab) 1 mg PO [facility]; Protocol Last Admin: 05/28/18 21:36 Dose: 1 mg Saliva Substitute (Saliva Substitute) 0 ml PO 5XD PRN PRN Reason: DRY MOUTH Silver Sulfadiazine (Silvadene 1% 25 Gm) 0 gm TP BID [facility] Last Admin: 05/29/18 11:46 Dose: Not Given Sodium Chloride ([place] Nasal [place]) 0 ml NS Q2H PRN PRN Reason: Nasal congestion - Labs Labs: 05/28/18 06:00 05/28/18 06:00 PT 15.0 SECONDS (9.4-12.5) H 05/11/18 13:45 INR 1.30 05/11/18 13:45 APTT 20.4 Seconds (25.1-36.5) L 05/11/18 13:45 - Constitutional Appears: Chronically Ill - Head Exam Head Exam: NORMAL INSPECTION - Respiratory Exam Respiratory Exam: Decreased Breath Sounds - Cardiovascular Exam Cardiovascular Exam: +S1, +S2 - GI/Abdominal Exam GI & Abdominal Exam: Soft. absent: Tenderness Assessment and Plan - Assessment and Plan (Free Text) Plan: Assessment abdominal wall cellulitis with probable infected abdominal mesh; most recent cultures from 05/03/2018 showed Pseudomonas and C. famata - eosinophilia R/O due to meds acute renal failure S/P small bowel obstruction in this patient with ventral wall hernia, S/P ventral incarcerated hernia repair, adhesiolysis and revision of colostomy S/P acute coronary syndrome with NSTEMI COPD history of VRE UTI history of severe sepsis secondary to left medial thigh abscess, growing Proteus, S/P incision and drainage DM HTN CAD Unresectable rectal cancer S/P chemotherapy and radiation therapy S/P colostomy S/P Port-a-cath placement morbid obesity with BMI 50 obstructive sleep apnea history of pulmonary embolism S/P IVC filter placement Plan we have discontinued Cefepime and Diflucan because of the eosinophilia and will continue to monitor off antibiotics; follow up further plans of surgery, but apparently the patient has been refusing to have the mesh removed as per other doctors - discussed with Dr. Florian previously Renal following and managing acute renal failure
--- NOTE | 2018-05-29 14:44 | CP.PCM.PCO ---
Physician Communication Note - Physician Communication Note Physician Communication Note: NARA with hemodialysis
--- NOTE | 2018-05-29 15:22 | PN ---
DATE: 05/29/2018 SUBJECTIVE: The patient is a 62-year-old [place]ian female who has been exhibiting problematic behavior with incessant crying out. I have reviewed situation with nursing. The patient is in need of dialysis. The patient has acute interstitial nephritis on top of her chronic kidney disease, underlying diabetes and hypertension. She also has insulin dependent diabetes and obstructive sleep apnea with a chronic obstructive pulmonary disease. She is also morbidly obese. REECE Osborne and Dr. Guerrero's note appreciated. The patient has a crying out behavior, although not to the extent that it is presently, is not new but of probable several years' duration cognitive decline. Psychotropically the patient is on Klonopin 0.5 mg b.i.d. p.r.n., Lyrica 50 mg b.i.d., and Risperdal 1 mg a.m. and at bedtime. Blood pressure 155/56, pulse 76, temperature 98 and respiratory rate 21. Eusebio Mendoza MD/ PhD
--- NOTE | 2018-05-29 15:39 | CP.PCM.PN ---
Subjective - Date & Time of Evaluation Date of Evaluation: 05/29/18 Time of Evaluation: 15:36 - Subjective Subjective: Surgery Progress note- Dr. Mckeon Patient seen and examined at bedside. Donita removed this AM. incision remains intact w/ no areas of fluctuance. patient currently on Bi-PAP Objective - Vital Signs/Intake and Output Vital Signs (last 24 hours): Temp Pulse Resp BP Pulse Ox 97.7 F 96 H 18 215/65 H 97 05/29/18 12:00 05/29/18 14:42 05/29/18 12:00 05/29/18 14:42 05/29/18 06:00 Intake and Output: 05/29/18 05/29/18 06:59 18:59 Intake Total 240 Output Total 100 Balance 140 - Medications Medications: Current Medications Acetylcysteine (Acetylcysteine 20%) 4 ml IH BIDRESP [facility] Last Admin: 05/29/18 07:43 Dose: 4 ml Albuterol/Ipratropium (Duoneb 3 Mg/0.5 Mg (3 Ml) Ud) 3 ml IH [id number] PRN PRN Reason: Shortness of Breath Last Admin: 05/27/18 20:26 Dose: 3 ml Apixaban (Eliquis) 2.5 mg PO BID [facility]; Protocol Last Admin: 05/29/18 14:03 Dose: Not Given Arformoterol Tartrate (Brovana) 15 mcg IH [id number] [facility] Last Admin: 05/29/18 07:43 Dose: 15 mcg Budesonide (Pulmicort Respules) 0.5 mg IH [id number] [facility] Last Admin: 05/29/18 07:44 Dose: 0.5 mg Calcium Acetate (Phoslo) 2,001 mg PO WM [facility] Last Admin: 05/29/18 13:33 Dose: Not Given Clonazepam (Klonopin) 0.5 mg PO BID PRN; Protocol PRN Reason: Anxiety Last Admin: 05/28/18 22:00 Dose: 0.5 mg Clonidine HCl (Catapres) 0.1 mg PO Q6 PRN PRN Reason: Other Last Admin: 05/29/18 14:42 Dose: 0.1 mg Clonidine HCl (Catapres-Tts3 0.3 Mg/24 Hr) 1 patch TD Q7D@1000 [facility] Darbepoetin Timothy (Aranesp) 150 mcg SC QWK [facility] Last Admin: 05/28/18 19:02 Dose: 150 mcg Docusate Sodium (Colace) 100 mg PO TID [facility] Last Admin: 05/29/18 14:02 Dose: Not Given Hydralazine HCl (Apresoline) 100 mg PO TID [facility] Last Admin: 05/29/18 14:02 Dose: Not Given Lactated Ringer's (Lactated Ringer's) 1,000 mls @ 125 mls/hr IV .Q8H [facility] Insulin Detemir (Levemir) 20 unit SC [facility] Last Admin: 05/28/18 22:55 Dose: Not Given Insulin Human Regular (Humulin R Low) 0 units SC ACHS [facility]; Protocol Last Admin: 05/29/18 12:15 Dose: Not Given Labetalol HCl (Trandate) 200 mg PO TID [facility] Last Admin: 05/29/18 14:03 Dose: Not Given Magnesium Oxide (Mag-Ox) 400 mg PO BID [facility] Last Admin: 05/29/18 11:46 Dose: Not Given Methylprednisolone (Solu-Medrol) 30 mg IVP DAILY [facility] Montelukast Sodium (Singulair) 10 mg PO [facility] Last Admin: 05/28/18 21:36 Dose: 10 mg Morphine Sulfate (Morphine) 2 mg IVP Q4H PRN PRN Reason: Pain, severe (8-10) Last Admin: 05/28/18 23:43 Dose: 2 mg Multivitamins (Thera Tab) 1 tab PO 0800 [facility] Last Admin: 05/29/18 10:20 Dose: Not Given Pantoprazole Sodium (Protonix Ec Tab) 40 mg PO [facility] Last Admin: 05/28/18 21:36 Dose: 40 mg Pregabalin (Lyrica) 50 mg PO BID [facility] Last Admin: 05/29/18 11:46 Dose: Not Given Risperidone (Risperdal Tab) 1 mg PO DAILY [facility]; Protocol Last Admin: 05/29/18 11:46 Dose: Not Given Risperidone (Risperdal Tab) 1 mg PO [facility]; Protocol Last Admin: 05/28/18 21:36 Dose: 1 mg Saliva Substitute (Saliva Substitute) 0 ml PO 5XD PRN PRN Reason: DRY MOUTH Silver Sulfadiazine (Silvadene 1% 25 Gm) 0 gm TP BID [facility] Last Admin: 05/29/18 11:46 Dose: Not Given Sodium Chloride ([place] Nasal [place]) 0 ml NS Q2H PRN PRN Reason: Nasal congestion - Labs Labs: 05/28/18 06:00 05/28/18 06:00 PT 15.0 SECONDS (9.4-12.5) H 05/11/18 13:45 INR 1.30 05/11/18 13:45 APTT 20.4 Seconds (25.1-36.5) L 05/11/18 13:45 - Constitutional Appears: Non-toxic, No Acute Distress - Head Exam Head Exam: ATRAUMATIC - ENT Exam ENT Exam: Mucous Membranes Moist - Respiratory Exam Respiratory Exam: NORMAL BREATHING PATTERN. absent: Accessory Muscle Use, Respiratory Distress - Cardiovascular Exam Cardiovascular Exam: REGULAR RHYTHM. absent: Bradycardia, Tachycardia - GI/Abdominal Exam GI & Abdominal Exam: Soft Additional comments: midline incision healing well. donita removed - Neurological Exam Neurological Exam: Awake - Psychiatric Exam Psychiatric exam: Normal Affect - Skin Skin Exam: Intact, Warm Assessment and Plan - Assessment and Plan (Free Text) Assessment: 62F w/ Acute Kidney Injury requiring dialysis; surgery re-consulted for Permacath placement Plan: - plan for OR on 05/30 for permcath placement - npo @ hi - ivf - hold AC - discussed w/ Dr. Mckeon surgical attending PGY2
[2018-05-29] MEDS ORDERED: Lactated Ringer's 1,000 ML IV SCH (15:45)
--- NOTE | 2018-05-29 15:53 | CP.PCM.PN ---
Subjective - Date & Time of Evaluation Date of Evaluation: 05/29/18 Time of Evaluation: 15:51 - Subjective Subjective: Nephrology Consultation Note: Assessment: worsening SHELBI ? pre-renal/ATN versus AIN as also with peripheral eosinophilia and eosinolphiuria, started HD 05/28/18 pulmonary congestion with fluid overload. hypomag, hyperphosphatemia hyperkalemia SBO s/p ex lap with ? MESH infection AMS, delirium left adrenal adenoma, Rt renal hyperdense cyst chronic hypercapnic respi failure Diabetic chronic Kidney Disease (E11.22) Hypertensive Chronic Kidney Disease (I12.9) Chronic Kidney Disease (N18.3) Stage 3 with 2.4 gm proteinuria (R80.9) likely due to DM/HTN/Obesity Anemia Vit D def morbid obesity, CAD s/p stent, COPD/SUMMER, rectal ca s/p colostomy Plan HD 2nd session today. next HD tomorrow can resume eliquis from renal perspective but to hold for permacath insertion tomorrow by surgery HTN control on multiple meds. resume clonidine patch as pt unable to take BP meds orally today Monitor Input/Output, daily weights and renal function with basic metabolic panel PRBC as needed d/w heme and okay to use KAVYA from heme perspective. on weekly aransep supplement lytes as needed d/w ID re; concerns for AIN, eosinophilia and antibiotics. had d/c abx pt started on steroids empirically but will be hesitant to give them more than few days due to her co-morbidities and current clinical condition. pt not a candidate for kidney biopsy Adrenal adenoma work up with plasma renin/aldosterone, plasma metanephrine NEGATIVE. outpt 1 mg dexa suppression test repeat renal sono in 6 months to assess her Rt renal cyst Dose meds/antibiotics for reduced GFR. Avoid fleets enema/magnesium based laxatives. Avoid nephrotoxins/NSAIDs/ iodinated contrast (unless needed emergently) Glycemic control Further work up/management as per primary team overall prognosis poor/guarded. once respi status better d/c planning to SNF, likely with outpt HD need atleast in short term basis. will continue to monitor for renal recovery Thanks for allowing me to participate in care of your patient. Will follow patient with you. Please call if any Qs. had d/w team Dr Dae Dawn Office: [phone] Chief Complaint;AMS Reason for consult: Acute Kidney Injury, CKD 3 HPI: Pt is a 62 F with hx of diabetes Mellitus (15 years), hypertension (years), CKD 3 with baseline cr 1.2-1.3 recently admitted after complicated abdominal surgery that represents w/ abdominal pain. Was recommended to get mesh removed last admission but refusing and still refusing per surgical service. She does not know why she is in the hospital. She denies n/v. She endorses reduced po intake. ROS: pt not able to provide much reliably. confused Physical Examination: seen on HD General Appearance: comfortable, morbidly obese. not in acute respi distress remains confused Vitals reviewed and noted as below Head; Atraumatic, normocephalic EYES: Pupils are equal, round and reactive to light accommodation. Eye muscles and extraocular movement intact. Sclera is anicteric. Neck; supple no lymphadenopathy, no thyromegaly or bruit Lungs: increased respiratory rate/effort. Breath sounds bilateral equal, diminished at bases but overall limited exam due to her obesity Heart: normal rate. s1s2 normal. No rub or gallop. Extremities: 2+ edema, No varicose veins Neurological: Patient is confused Skin: Warm and dry. Normal turgor. No rash. Palpitation: Normal elasticity for age Abdomen: Abdomen is + colostomy. midline donita + Psych: deferred MSK: no joint tenderness or swelling. Digits and nails normal, no deformity : kidney or bladder not palpable. has linares left IJ shiley + Labs/imaging reviewed. Past medical history, past surgical history, family history, social history, allergy reviewed and noted as below Family hx: no hx of CKD. Rest non-contributory Objective - Vital Signs/Intake and Output Vital Signs (last 24 hours): Temp Pulse Resp BP Pulse Ox 97.7 F 94 H 18 210/62 H 97 05/29/18 12:00 05/29/18 15:40 05/29/18 12:00 05/29/18 15:40 05/29/18 06:00 Intake and Output: 05/29/18 05/29/18 06:59 18:59 Intake Total 240 Output Total 100 Balance 140 - Medications Medications: Current Medications Acetylcysteine (Acetylcysteine 20%) 4 ml IH BIDRESP JR Last Admin: 05/29/18 07:43 Dose: 4 ml Albuterol/Ipratropium (Duoneb 3 Mg/0.5 Mg (3 Ml) Ud) 3 ml IH [id number] PRN PRN Reason: Shortness of Breath Last Admin: 05/27/18 20:26 Dose: 3 ml Apixaban (Eliquis) 2.5 mg PO BID [facility]; Protocol Last Admin: 05/29/18 14:03 Dose: Not Given Arformoterol Tartrate (Brovana) 15 mcg IH [id number] [facility] Last Admin: 05/29/18 07:43 Dose: 15 mcg Budesonide (Pulmicort Respules) 0.5 mg IH [id number] [facility] Last Admin: 05/29/18 07:44 Dose: 0.5 mg Calcium Acetate (Phoslo) 2,001 mg PO WM [facility] Last Admin: 05/29/18 13:33 Dose: Not Given Clonazepam (Klonopin) 0.5 mg PO BID PRN; Protocol PRN Reason: Anxiety Last Admin: 05/28/18 22:00 Dose: 0.5 mg Clonidine HCl (Catapres) 0.1 mg PO Q6 PRN PRN Reason: Other Last Admin: 05/29/18 14:42 Dose: 0.1 mg Clonidine HCl (Catapres-Tts3 0.3 Mg/24 Hr) 1 patch TD Q7D@1000 JR Last Admin: 05/29/18 15:40 Dose: 1 patch Darbepoetin Timothy (Aranesp) 150 mcg SC QWK [facility] Last Admin: 05/28/18 19:02 Dose: 150 mcg Docusate Sodium (Colace) 100 mg PO TID [facility] Last Admin: 05/29/18 14:02 Dose: Not Given Hydralazine HCl (Apresoline) 100 mg PO TID [facility] Last Admin: 05/29/18 14:02 Dose: Not Given Lactated Ringer's (Lactated Ringer's) 1,000 mls @ 125 mls/hr IV .Q8H [facility] Insulin Detemir (Levemir) 20 unit SC HS [facility] Last Admin: 05/28/18 22:55 Dose: Not Given Insulin Human Regular (Humulin R Low) 0 units SC ACHS [facility]; Protocol Last Admin: 05/29/18 12:15 Dose: Not Given Labetalol HCl (Trandate) 200 mg PO TID [facility] Last Admin: 05/29/18 14:03 Dose: Not Given Magnesium Oxide (Mag-Ox) 400 mg PO BID [facility] Last Admin: 05/29/18 11:46 Dose: Not Given Methylprednisolone (Solu-Medrol) 30 mg IVP DAILY [facility] Montelukast Sodium (Singulair) 10 mg PO HS [facility] Last Admin: 05/28/18 21:36 Dose: 10 mg Morphine Sulfate (Morphine) 2 mg IVP Q4H PRN PRN Reason: Pain, severe (8-10) Last Admin: 05/28/18 23:43 Dose: 2 mg Multivitamins (Thera Tab) 1 tab PO 0800 [facility] Last Admin: 05/29/18 10:20 Dose: Not Given Pantoprazole Sodium (Protonix Ec Tab) 40 mg PO HS [facility] Last Admin: 05/28/18 21:36 Dose: 40 mg Pregabalin (Lyrica) 50 mg PO BID [facility] Last Admin: 05/29/18 11:46 Dose: Not Given Risperidone (Risperdal Tab) 1 mg PO DAILY [facility]; Protocol Last Admin: 05/29/18 11:46 Dose: Not Given Risperidone (Risperdal Tab) 1 mg PO HS [facility]; Protocol Last Admin: 05/28/18 21:36 Dose: 1 mg Saliva Substitute (Saliva Substitute) 0 ml PO 5XD PRN PRN Reason: DRY MOUTH Silver Sulfadiazine (Silvadene 1% 25 Gm) 0 gm TP BID [facility] Last Admin: 05/29/18 11:46 Dose: Not Given Sodium Chloride ([place] Nasal [place]) 0 ml NS Q2H PRN PRN Reason: Nasal congestion - Labs Labs: 05/28/18 06:00 05/28/18 06:00 PT 15.0 SECONDS (9.4-12.5) H 05/11/18 13:45 INR 1.30 05/11/18 13:45 APTT 20.4 Seconds (25.1-36.5) L 05/11/18 13:45
--- NOTE | 2018-05-29 18:38 | PN ---
DATE: 05/29/2018 REASON FOR CONSULTATION: Followup, cardiac evaluation, history of congestive heart failure, transferred from [facility] due to lethargy, history of chronic kidney disease, started on dialysis, history of DVT and PE. This note is in addition to dictated by our nurse practitioner, Tiffanie Osborne. ASSESSMENT AND PLAN: The patient's condition is stable and lethargic, screams off and on. The patient has been kept off Eliquis for dialysis catheter. The patient had dialysis catheter yesterday and had dialysis. History of morbid obesity, history of intestinal obstruction, history of coronary artery disease, history of deep venous thrombosis and pulmonary embolism. RECOMMENDATIONS: We will resume back Eliquis today. If the dialysis remains to be continued, then we can start back on ESTEVAN and ARB inhibitor, for now is on hold. Continue hydralazine, Eliquis is started, Lasix as per rules examiner. We will follow with you. Thank you Dr. Florian for providing us the opportunity in taking care of the patient, Pedro Beckluisa. Monitor electrolytes. Monitor renal function. Pamela Guerrero MD
[2018-05-29] MEDS: Pantoprazole 40 mg EC Tab PO SCH (21:48)
[2018-05-29] MEDS: Insulin Detemir 100 units/ml Vial (Levemir) SC SCH (22:02)
--- NOTE | 2018-05-29 23:18 | PN ---
DATE: 05/29/2018 SUBJECTIVE: Day #2 for hemodialysis. She still feels weak and she is on BiPAP. She has no chest pain and no short of breath. PHYSICAL EXAMINATION VITAL SIGNS: Temperature is 98, heart rate is 76, blood pressure is 155/56, and respirations 21. HEAD AND NECK: Normal. No JVD. No thyromegaly. CHEST: Clear bilateral. CARDIAC: First sound and second sound normal. ABDOMEN: Obese and nontender. Midline incision is dry and dry colostomy. EXTREMITIES: Mild decrease of edema . NEUROLOGIC: General weakness. She is alert and awake when I spoke to her. She is responding and seems stable. LABORATORY DATA: Last white count 10.7, hemoglobin 9.3, hematocrit . Blood sugar running 185 to 160. IMPRESSION AND PLAN: 1. Acute renal failure on top of chronic kidney disease stage IV, baseline got worse, now requiring renal replacement therapy. 2. Hypertension. Continue current blood pressure medicine all of them. 3. Insulin-dependent diabetes, on insulin. Blood sugar running 150 to 400. We will continue monitoring. 4. Chronic obstructive pulmonary disease, obstructive sleep apnea. We will follow up with the splitter operator, Dr. Ayala. 5. Morbid obesity. 6. Status post small bowel obstruction. Colostomy and repair of the hernia with mesh. So the wound is okay now. We will continue current therapy. 7. Sacral decubitus. Continue local wound care. Continue current therapy. Continue Solu-Medrol. Follow up clinically. Continue renal replacement therapy. Elroy Florian MD
--- NOTE | 2018-05-30 03:17 | PN ---
DATE: 05/29/2018 LOCATION: The patient is in room 267, bed 1. REFERRING DOCTOR: Elroy Florian MD SUBJECTIVE: The patient is seen lying in bed, asleep. BiPAP machine is in place. The patient is in no significant acute distress at this time. No hemoptysis, no hematuria, no fevers, no chills. The patient has been started on hemodialysis. She is going for PermCath placement in a.m. OBJECTIVE VITAL SIGNS: Stable. Blood pressure is 155/56, pulse is 76, T-max is 98.4, O2 sat is 97%. HEENT: Reveals moist mucous membranes. Crowded airways. No oropharyngeal lesions are noted. NECK: Supple. There is no adenopathy, no jugular venous distention noted. LUNGS: Scattered wheezes bilaterally. CARDIOVASCULAR SYSTEM: S1 and S2 to be audible. ABDOMEN: Soft. Colostomy is present with soft stools. Surgical wound has dressing in place. EXTREMITIES: Reveal bilateral lower extremity edema. NEUROLOGIC: The patient is easily arousable, follows simple commands. She is able to recognize me. Otherwise, the nurses tell me that she has been screaming a lot at nighttime. MEDICATIONS: The patient's medications were reviewed. The patient is still on Eliquis twice a day. She is on multiple medicines to control her blood pressure. 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 The patient's medical condition precludes from having a kidney biopsy. The patient has been started, however, on steroids and she is scheduled for PermCath placement in a.m. LABORATORY DATA: blood count has been holding. Her lab data were reviewed. No new labs were done today, but her last labs reveal a hemoglobin of 9.3, hematocrit 31.6 and platelet count of 267,000. ASSESSMENT AND PLAN: The plan on giving the patient as recommended by Nephrology and packed red blood cells as needed. The patient should continue her anticoagulation with Eliquis once the PermCath is placed and there should be no contraindication. We will continue to monitor the patient. At this point in time, the patient has multiple issues which are all comorbid medical issues. There is no evidence at this point in time of a recurrence of her underlying history of rectal cancer. We will follow the patient with you and make appropriate recommendations. Prognosis at this time is, however, guarded. Maria Ines Faye MD
--- NOTE | 2018-05-30 07:00 | CP.PCM.PN ---
Subjective - Date & Time of Evaluation Date of Evaluation: 05/30/18 Time of Evaluation: 06:15 - Subjective Subjective: Awake, Lying in bed, no distress, alert, BIPAP in use, wanted to take out Reason for consultation and follow up: Cardiac evaluation of history of congestive heart failure, transferred from [facility] due to lethargy, chronic kidney disease,started on hemodialysis Seen and examined by me and Dr. Guerrero Objective - Vital Signs/Intake and Output Vital Signs (last 24 hours): Temp Pulse Resp BP Pulse Ox 99.3 F 82 18 167/64 H 93 L 05/30/18 05:00 05/30/18 05:00 05/30/18 05:00 05/30/18 05:00 05/29/18 21:30 Intake and Output: 05/29/18 05/30/18 18:59 06:59 Intake Total 0 Output Total 25 Balance -25 - Medications Medications: Current Medications Acetylcysteine (Acetylcysteine 20%) 4 ml IH BIDRESP [facility] Last Admin: 05/29/18 19:42 Dose: 4 ml Albuterol/Ipratropium (Duoneb 3 Mg/0.5 Mg (3 Ml) Ud) 3 ml IH [id number] PRN PRN Reason: Shortness of Breath Last Admin: 05/27/18 20:26 Dose: 3 ml Apixaban (Eliquis) 2.5 mg PO BID [facility]; Protocol Last Admin: 05/29/18 14:03 Dose: Not Given Arformoterol Tartrate (Brovana) 15 mcg [facility] [id number] [facility] Last Admin: 05/29/18 19:42 Dose: 15 mcg Budesonide (Pulmicort Respules) 0.5 mg IH [id number] [facility] Last Admin: 05/29/18 19:42 Dose: 0.5 mg Calcium Acetate (Phoslo) 2,001 mg PO WM [facility] Last Admin: 05/29/18 17:59 Dose: 2,001 mg Clonazepam (Klonopin) 0.5 mg PO BID PRN; Protocol PRN Reason: Anxiety Last Admin: 05/28/18 22:00 Dose: 0.5 mg Clonidine HCl (Catapres) 0.1 mg PO Q6 PRN PRN Reason: Other Last Admin: 05/29/18 14:42 Dose: 0.1 mg Clonidine HCl (Catapres-Tts3 0.3 Mg/24 Hr) 1 patch TD Q7D@1000 [facility] Last Admin: 05/29/18 15:40 Dose: 1 patch Darbepoetin Timothy (Aranesp) 150 mcg SC QWK [facility] Last Admin: 05/28/18 19:02 Dose: 150 mcg Docusate Sodium (Colace) 100 mg PO TID [facility] Last Admin: 05/29/18 17:59 Dose: 100 mg Hydralazine HCl (Apresoline) 100 mg PO TID [facility] Last Admin: 05/29/18 18:00 Dose: 100 mg Insulin Detemir (Levemir) 20 unit SC [facility] Last Admin: 05/29/18 22:02 Dose: 20 units Insulin Human Regular (Humulin R Low) 0 units SC [facility]; Protocol Last Admin: 05/29/18 22:01 Dose: Not Given Labetalol HCl (Trandate) 200 mg PO TID [facility] Last Admin: 05/29/18 17:59 Dose: 200 mg Magnesium Oxide (Mag-Ox) 400 mg PO BID [facility] Last Admin: 05/29/18 18:00 Dose: 400 mg Methylprednisolone (Solu-Medrol) 30 mg IVP DAILY [facility] Last Admin: 05/29/18 10:59 Dose: 30 mg Montelukast Sodium (Singulair) 10 mg PO [facility] Last Admin: 05/29/18 21:50 Dose: 10 mg Morphine Sulfate (Morphine) 2 mg IVP Q4H PRN PRN Reason: Pain, severe (8-10) Last Admin: 05/28/18 23:43 Dose: 2 mg Multivitamins (Thera Tab) 1 tab PO 0800 [facility] Last Admin: 05/29/18 10:20 Dose: Not Given Pantoprazole Sodium (Protonix Ec Tab) 40 mg PO [facility] Last Admin: 05/29/18 21:48 Dose: 40 mg Pregabalin (Lyrica) 50 mg PO BID [facility] Last Admin: 05/29/18 19:13 Dose: Not Given Risperidone (Risperdal Tab) 1 mg PO DAILY [facility]; Protocol Last Admin: 05/29/18 11:46 Dose: Not Given Risperidone (Risperdal Tab) 1 mg PO [facility]; Protocol Last Admin: 05/30/18 02:54 Dose: 1 mg Saliva Substitute (Saliva Substitute) 0 ml PO 5XD PRN PRN Reason: DRY MOUTH Silver Sulfadiazine (Silvadene 1% 25 Gm) 0 gm TP BID [facility] Last Admin: 05/29/18 11:46 Dose: Not Given Sodium Chloride ([place] Nasal [place]) 0 ml NS Q2H PRN PRN Reason: Nasal congestion - Labs Labs: 05/28/18 06:00 05/28/18 06:00 PT 15.0 SECONDS (9.4-12.5) H 05/11/18 13:45 INR 1.30 05/11/18 13:45 APTT 20.4 Seconds (25.1-36.5) L 05/11/18 13:45 - Constitutional Appears: Non-toxic, No Acute Distress - Head Exam Head Exam: NORMAL INSPECTION, NORMOCEPHALIC - Eye Exam Eye Exam: Normal appearance Pupil Exam: NORMAL ACCOMODATION - ENT Exam ENT Exam: Mucous Membranes Dry - Respiratory Exam Respiratory Exam: Decreased Breath Sounds, NORMAL BREATHING PATTERN - Cardiovascular Exam Cardiovascular Exam: REGULAR RHYTHM, +S1, +S2 Additional comments: Telemetry NSR 80's right chest port Left IJ shiley catheter - GI/Abdominal Exam GI & Abdominal Exam: Soft, Normal Bowel Sounds Additional comments: colostomy - Exam Additional comments: ESRD on hemodialysis - Extremities Exam Additional comments: 3-4+edema - Neurological Exam Neurological Exam: Alert, Awake - Psychiatric Exam Psychiatric exam: Anxious - Skin Skin Exam: Dry, Normal Color, Warm Assessment and Plan - Assessment and Plan (Free Text) Assessment: A 62 year old morbidly obese female who got transferred to [facility] due to altered mental status. Patient is known to service from previous multiple admissions. History of coronary artery disease with stent of circumflex,hypertension,hyperlipidemia,diabetes,sleep apnea,COPD, congestive heart failure, DVT/PE. History of bowel resection in the past with colostomy. She was admitted to [facility] due to small bowel obstruction and on 04/16/18 she had explor-lap and lysis of adhesions and ventral hernia repair with revision of colostomy (Dr. Mckeon).Postoperatively, patient had infection involving th mesh placed for the hernia repair and it was recommended that she undergo an additional procedure to have the mesh removed however patient refused surgical procedure. She was stablized and transferred to [facility]. Chest X ray showed severe cardiomegaly,moderate to severe pulmonary congestion.Not in respiratory distress, On nasal cannula 4l/min. Troponin 0.14/.15, denies chest pain, EKG- normal sinus rhythm, elevated due to renal insuffiency. Will treat medically. Surgical follow up for abdominal wound. Symptoms clinically improved. Cardiac status stable.Repeat Chest X ray showed improved vascular congestion. Being followed up by Nephrology for worsening renal status. On hemodialysis Eliquis held for shiley insertion. Restarted Eliquis. Plan: No distress, on BIPAP, wanted to take out No distress, denies chest pain Cardiac status stable Heart rate controlled Blood pressure controlled Resumed Eliquis Had 3 hours of hemodialysis yesterday Will resume ESTEVAN and ARB once renal function stabilize Followed up by Renal On Hydralazine 100mg TID,Labetolol 200 mg TID, Continue current treatment Continue current medications Will follow up Plan and treatment discussed with Dr. Guerrero
[2018-05-30 07:09] LABS: BASO # 0.01 K/mm3 (0.0-2.0); BASO % 0.1 % (0.0-3.0); EOS % 0.4 % (1.5-5.0); GRAN # 6.66 (1.4-6.5); GRAN % 79.8 % (50.0-68.0); HEMOGLOBIN 9.2 g/dL (12.0-16.0); LYMPH # 0.9 (1.2-3.4); LYMPH % 11.3 % (22.0-35.0); MEAN CELL VOLUME 94.5 fl (80.0-105.0); MEAN CORPUSCULAR HGB CONC 29.6 g/dl (31.0-37.0); MEAN PLATELET VOLUME 9.7 fl (7.0-11.0); MONO # 0.7 (0.1-0.6); MONO % 8.4 % (1.0-6.0); RBC 3.29 10^6/uL (3.5-6.1); RED CELL DISTRIBUTION WIDTH 20.2 % (11.5-14.5); WHITE BLOOD COUNT 8.3 10^3/uL (4.5-11.0)
[2018-05-30 07:21] LABS: INR 1.09; PARTIAL THROMBOPLASTIN TIME 27.1 Seconds (25.1-36.5); PROTHROMBIN TIME 12.5 SECONDS (9.4-12.5)
[2018-05-30] MEDS ORDERED: Bupivacaine 0.5% 50 ML IJ ONE (07:28)
[2018-05-30] MEDS ORDERED: Lidocaine 1% Inj (20ml) ONE (07:28)
[2018-05-30 07:30] LABS: ALB/GLOB RATIO 0.7 (1.1-1.8); ALBUMIN 2.6 g/dL (3.0-4.8); CALCIUM 7.1 mg/dL (8.4-10.5)
[2018-05-30] MEDS: Acetylcysteine 20% Inhal Soln (4ml) IH SCH ×2 (07:40→19:41)
[2018-05-30] MEDS ORDERED: Midazolam 2 MG/2 ML VIAL ONE ×2 (07:41→08:25)
[2018-05-30] MEDS: Arformoterol 15 mcg/2 ml Inh Sol IH SCH ×2 (07:41→19:41)
[2018-05-30] MEDS: Budesonide 0.5 mg/2 ml Inhal Susp UD IH SCH ×2 (07:41→19:41)
--- NOTE | 2018-05-30 09:01 | PCM.SURG1 ---
Surgeon's Initial Post Op Note - Surgeon's Notes Surgeon: Dr. Mckeon Baseboard Heating Installer: [place] PGY3, PGY2 Type of Anesthesia: IV Sedation Anesthesia Administered By: Dr. Lassiter Pre-Operative Diagnosis: Acute on Chronic Kidney Injury Operative Findings: see op note Post-Operative Diagnosis: as above Operation Performed: Tunneled dialysis catheter placement (Permacath) Specimen/Specimens Removed: none Estimated Blood Loss: EBL {In ML}: 10 Drains Used: No Drains Post-Op Condition: Fair Date of Surgery/Procedure: 05/30/18 Time of Surgery/Procedure: 09:01 (Dictation #: [id number])
--- NOTE | 2018-05-30 09:43 | RAD ---
Date of service: 05/30/2018 HISTORY: s/p Permacath placement COMPARISON: 05/27/2018 FINDINGS: LUNGS: No active pulmonary disease. PLEURA: No significant pleural effusion identified, no pneumothorax apparent. CARDIOVASCULAR: Aortic calcification Moderate cardiomegaly moderate vascular congestion OSSEOUS STRUCTURES: No significant abnormalities. VISUALIZED UPPER ABDOMEN: Normal. OTHER FINDINGS: There is a left sided dialysis catheter in the right atrium. Right-sided Port-A-Cath IMPRESSION: Moderate cardiomegaly and moderate vascular congestion
--- NOTE | 2018-05-30 10:29 | RAD ---
Date of service: 05/30/2018 PROCEDURE: Fluoroscopy up to 1 hr HISTORY: Permacath exchange LT COMPARISON: TECHNIQUE: 15.4 sec of fluoro time. 7.88 mGy cumulative dose. Six images were submitted FINDINGS: The study shows placement of a left internal jugular dialysis catheter with the tip in the right atrium IMPRESSION: As above
[2018-05-30] MEDS: Magnesium Oxide 400 mg Tab UD PO SCH ×2 (10:42→20:13)
[2018-05-30] MEDS: MethylPREDNISolone 40 mg Vial IVP SCH (10:44)
[2018-05-30] MEDS: Multivitamin Therapeutic Tab PO SCH (10:51)
--- NOTE | 2018-05-30 12:29 | CP.PCM.PN ---
Subjective - Date & Time of Evaluation Date of Evaluation: 05/30/18 Time of Evaluation: 10:50 - Subjective Subjective: Patient just had dialysis catheter changed, sitll with some lethargy, no fevers. Objective - Vital Signs/Intake and Output Vital Signs (last 24 hours): Temp Pulse Resp BP Pulse Ox 98.0 F 68 21 155/56 H 97 05/29/18 06:00 05/29/18 07:45 05/29/18 06:00 05/29/18 06:00 05/29/18 06:00 Intake and Output: 05/29/18 05/29/18 06:59 18:59 Intake Total 240 Output Total 100 Balance 140 - Medications Medications: Current Medications Acetylcysteine (Acetylcysteine 20%) 4 ml IH BIDRESP [facility] Last Admin: 05/29/18 07:43 Dose: 4 ml Albuterol/Ipratropium (Duoneb 3 Mg/0.5 Mg (3 Ml) Ud) 3 ml IH [id number] PRN PRN Reason: Shortness of Breath Last Admin: 05/27/18 20:26 Dose: 3 ml Apixaban (Eliquis) 2.5 mg PO BID [facility]; Protocol Arformoterol Tartrate (Brovana) 15 mcg IH [id number] [facility] Last Admin: 05/29/18 07:43 Dose: 15 mcg Budesonide (Pulmicort Respules) 0.5 mg IH [id number] [facility] Last Admin: 05/29/18 07:44 Dose: 0.5 mg Calcium Acetate (Phoslo) 2,001 mg PO WM [facility] Last Admin: 05/29/18 10:20 Dose: Not Given Clonazepam (Klonopin) 0.5 mg PO BID PRN; Protocol PRN Reason: Anxiety Last Admin: 05/28/18 22:00 Dose: 0.5 mg Clonidine HCl (Catapres) 0.1 mg PO Q6 PRN PRN Reason: Other Darbepoetin Timothy (Aranesp) 150 mcg SC QWK [facility] Last Admin: 05/28/18 19:02 Dose: 150 mcg Docusate Sodium (Colace) 100 mg PO TID [facility] Last Admin: 05/29/18 11:45 Dose: Not Given Hydralazine HCl (Apresoline) 100 mg PO TID [facility] Last Admin: 05/29/18 11:45 Dose: Not Given Insulin Detemir (Levemir) 20 unit SC [facility] Last Admin: 05/28/18 22:55 Dose: Not Given Insulin Human Regular (Humulin R Low) 0 units SC [facility]; Protocol Last Admin: 05/29/18 12:15 Dose: Not Given Labetalol HCl (Trandate) 200 mg PO TID [facility] Last Admin: 05/29/18 11:47 Dose: Not Given Magnesium Oxide (Mag-Ox) 400 mg PO BID [facility] Last Admin: 05/29/18 11:46 Dose: Not Given Methylprednisolone (Solu-Medrol) 30 mg IVP DAILY [facility] Montelukast Sodium (Singulair) 10 mg PO [facility] Last Admin: 05/28/18 21:36 Dose: 10 mg Morphine Sulfate (Morphine) 2 mg IVP Q4H PRN PRN Reason: Pain, severe (8-10) Last Admin: 05/28/18 23:43 Dose: 2 mg Multivitamins (Thera Tab) 1 tab PO 0800 [facility] Last Admin: 05/29/18 10:20 Dose: Not Given Nystatin (Nystop Topical Powder) 0 gm TOP TID [facility] Last Admin: 05/29/18 11:46 Dose: Not Given Pantoprazole Sodium (Protonix Ec Tab) 40 mg PO [facility] Last Admin: 05/28/18 21:36 Dose: 40 mg Pregabalin (Lyrica) 50 mg PO BID [facility] Last Admin: 05/29/18 11:46 Dose: Not Given Risperidone (Risperdal Tab) 1 mg PO DAILY [facility]; Protocol Last Admin: 05/29/18 11:46 Dose: Not Given Risperidone (Risperdal Tab) 1 mg PO [facility]; Protocol Last Admin: 05/28/18 21:36 Dose: 1 mg Saliva Substitute (Saliva Substitute) 0 ml PO 5XD PRN PRN Reason: DRY MOUTH Silver Sulfadiazine (Silvadene 1% 25 Gm) 0 gm TP BID [facility] Last Admin: 05/29/18 11:46 Dose: Not Given Sodium Chloride ([place] Nasal [place]) 0 ml NS Q2H PRN PRN Reason: Nasal congestion - Labs Labs: 05/28/18 06:00 05/28/18 06:00 PT 15.0 SECONDS (9.4-12.5) H 05/11/18 13:45 INR 1.30 05/11/18 13:45 APTT 20.4 Seconds (25.1-36.5) L 05/11/18 13:45 - Constitutional Appears: No Acute Distress, Chronically Ill - Head Exam Head Exam: NORMAL INSPECTION - Neck Exam Neck Exam: absent: Meningismus - Respiratory Exam Respiratory Exam: Decreased Breath Sounds - Cardiovascular Exam Cardiovascular Exam: +S1, +S2 - GI/Abdominal Exam GI & Abdominal Exam: Soft. absent: Tenderness Assessment and Plan - Assessment and Plan (Free Text) Plan: Assessment S/P treatment of abdominal wall cellulitis with probable infected abdominal mesh; most recent cultures from 05/03/2018 showed Pseudomonas and C. famata - eosinophilia R/O due to meds acute renal failure S/P small bowel obstruction in this patient with ventral wall hernia, S/P ventral incarcerated hernia repair, adhesiolysis and revision of colostomy S/P acute coronary syndrome with NSTEMI COPD history of VRE UTI history of severe sepsis secondary to left medial thigh abscess, growing Proteus, S/P incision and drainage DM HTN CAD Unresectable rectal cancer S/P chemotherapy and radiation therapy S/P colostomy S/P Port-a-cath placement morbid obesity with BMI 50 obstructive sleep apnea history of pulmonary embolism S/P IVC filter placement Plan we have discontinued Cefepime and Diflucan because of the eosinophilia and will continue to monitor off antibiotics since she is at risk for nosocomial infections; follow up further plans of surgery, but apparently the patient has been refusing to have the mesh removed as per other doctors - discussed with Dr. Florian previously Renal following and managing acute renal failure
--- NOTE | 2018-05-30 12:29 | PN ---
DATE: 05/30/2018 REASON FOR CONSULTATION AND FOLLOWUP: Cardiac evaluation, history of congestive heart failure, transferred [facility] due to lethargy, acute and chronic renal insufficiency. She started on dialysis. SUBJECTIVE: The patient denies any chest pain, shortness of breath, or any palpitations, going for placement of dialysis catheter, Perma-Cath for tunneled dialysis catheter, placement of Perma-Cath. The patient is hemodynamically stable. This note is in addition to dictated by our nurse practitioner, Tiffanie Osborne. In summary, this is a 62-year-old female, obese, transferred to [facility] [place] [place] from [facility] due to altered mental status, history of DVT/PE was on Eliquis, history of ventral hernia repair, history of small bowel obstruction, history of coronary artery disease in the past acute kidney injury and chronic renal insufficiency. The patient is going for placement of a Perma-Cath catheter today. RECOMMENDATION: Once the Perma-Cath catheter is placed, we will resume back from dialysis catheter from tomorrow. We will follow with you. Thank you Dr. Florian for providing the opportunity in taking care of the patient, Ismael Vasuqez. We will follow up postop. Pamela Guerrero MD
--- NOTE | 2018-05-30 13:42 | PN ---
DATE: 05/30/2018 PULMONARY PROGRESS NOTE REFERRING PHYSICIAN: Elroy Florian MD SUBJECTIVE: The patient is lying in bed. No acute distress. No overnight events reported. The patient had Perma-Cath placement done today. No hemoptysis, hematemesis, hematuria, diarrhea or leg pain reported. PHYSICAL EXAMINATION GENERAL: No acute distress. VITAL SIGNS: Blood pressure 173/75, pulse 75, temperature 99.3 and oxygen saturation 97% on nasal cannula. HEENT: Moist mucous membranes. Crowded airway. NECK: Supple. No JVD. LUNGS: Few rhonchi bilaterally. CARDIOVASCULAR: S1 and S2 audible. ABDOMEN: Soft, colostomy with soft stool. Surgical abdominal wound with dressing in place. EXTREMITIES: Bilateral lower extremity edema. NEUROLOGICAL: Awake, alert, verbal, and follows commands. MEDICATIONS: Reviewed. Mucomyst 4 mL inhalation twice a day, DuoNeb 3 mL inhalation every 6 hours p.r.n., Eliquis 2.5 mg twice a day, Brovana 15 mcg every 12 hours, Pulmicort 0.5 mg every 12 hours, calcium acetate 667 mg Mondays and Wednesdays, Klonopin 0.5 mg twice a day p.r.n., clonidine 0.1 mg every 6 hours p.r.n., clonidine patch 3 mg every 7 days, Aranesp 150 mcg weekly, Colace 100 mg three times a day, fentanyl 25 mcg p.r.n., hydralazine 100 mg three times a day, Levemir 20 at bedtime, Humulin R sliding scale, labetalol 200 mg three times a day, magnesium oxide 400 mg twice a day, Solu-Medrol 30 mg IV push daily, Singulair 10 mg at bedtime, morphine 10 mg IV push every 4 hours p.r.n., multivitamin 1 tab daily, Protonix 40 mg at bedtime, Lyrica 50 mg twice a day, Risperdal 1 mg daily, Risperdal 1 mg at bedtime, saliva substitute 5 times a day p.r.n., Silvadene topically twice a day, and [place] nasal spray every 2 hours p.r.n. LABORATORY DATA: Reviewed. WBC 8.3, RBC 3.29, hemoglobin 9.2, hematocrit 31.1 and platelets 192. PT 12.5, INR 1.09, and APTT 27.1. Sodium 132, potassium 4.3, chloride 99, carbon dioxide 26, anion gap 12, BUN 40, creatinine 3.1, GFR 15, POC glucose 91, random glucose 101, calcium 7.1 and phosphorus 6.0. Total bilirubin 0.3, AST 21, ALT 20, alkaline phosphatase 223, total protein 6.5, albumin 2.6, globulin 3.9 and albumin-globulin ratio of 0.7. Chest x-ray shows moderate cardiomegaly and moderate vascular congestion. Fluoroscopy shows placement of left internal jugular dialysis catheter with the tip in the right atrium. IMPRESSION AND PLAN: Status post laparotomy for small bowel obstruction, relocation of colostomy, sleep apnea syndrome, hypoventilation syndrome, renal failure, now on hemodialysis, history of pulmonary embolism, deep venous thrombosis, chronic lung disease, history of mesh infection in the abdomen, pulmonary hypertension, and morbid obesity. Pulmonary point of view, continue inhaled bronchodilators. Continue bilevel positive airway pressure use at bedtime, sleep apnea precaution, head of bed elevated at 45 degrees, gastric prophylaxis, and deep venous thrombosis prophylaxis. Nephrology followup. Continue to monitor labs. This patient was seen and examined with Dr. Ayala. Discussed assessment and plan as described above. Thank you for this consult and we will follow with you. Breezy Schafer APN Pamela Ayala MD
[2018-05-30] MEDS ORDERED: Dextrose 50% SYRINGE Inj (50 ml) ONE (14:05)
--- NOTE | 2018-05-30 14:27 | CP.PCM.PN ---
Subjective - Date & Time of Evaluation Date of Evaluation: 05/30/18 Time of Evaluation: 14:26 - Subjective Subjective: Nephrology Consultation Note: Assessment: critical SHELBI ? pre-renal/ATN versus AIN as also with peripheral eosinophilia and eosinolphiuria, started HD 05/28/18 pulmonary congestion with fluid overload. hypomag, hyperphosphatemia hyperkalemia SBO s/p ex lap with ? MESH infection AMS, delirium left adrenal adenoma, Rt renal hyperdense cyst chronic hypercapnic respi failure Diabetic chronic Kidney Disease (E11.22) Hypertensive Chronic Kidney Disease (I12.9) Chronic Kidney Disease (N18.3) Stage 3 with 2.4 gm proteinuria (R80.9) likely due to DM/HTN/Obesity Anemia Vit D def morbid obesity, CAD s/p stent, COPD/SUMMER, rectal ca s/p colostomy Plan HD 3rd session today. can resume eliquis from renal perspective once okay by surgery HTN control on multiple meds. resume clonidine patch as pt unable to take BP meds orally Monitor Input/Output, daily weights and renal function with basic metabolic panel PRBC as needed d/w heme and okay to use KAVYA from heme perspective. on weekly aransep supplement lytes as needed d/w ID re; concerns for AIN, eosinophilia and antibiotics. had d/c abx pt started on steroids empirically but will be hesitant to give them more than few days due to her co-morbidities and current clinical condition. pt not a candidate for kidney biopsy Adrenal adenoma work up with plasma renin/aldosterone, plasma metanephrine NEGATIVE. outpt 1 mg dexa suppression test repeat renal sono in 6 months to assess her Rt renal cyst Dose meds/antibiotics for reduced GFR. Avoid fleets enema/magnesium based laxatives. Avoid nephrotoxins/NSAIDs/ iodinated contrast (unless needed emergently) Glycemic control Further work up/management as per primary team overall prognosis poor/guarded. once respi status better d/c planning to SNF, likely with outpt HD need atleast in short term basis. will continue to monitor for renal recovery Thanks for allowing me to participate in care of your patient. Will follow patient with you. Please call if any Qs. had d/w team Dr Dae Dawn Office: [phone] Chief Complaint;AMS Reason for consult: Acute Kidney Injury, CKD 3 HPI: Pt is a 62 F with hx of diabetes Mellitus (15 years), hypertension (years), CKD 3 with baseline cr 1.2-1.3 recently admitted after complicated abdominal surgery that represents w/ abdominal pain. Was recommended to get mesh removed last admission but refusing and still refusing per surgical service. She does not know why she is in the hospital. She denies n/v. She endorses reduced po intake. ROS: pt not able to provide much reliably. confused Physical Examination: General Appearance: comfortable, morbidly obese. not in acute respi distress remains confused. overall ill appearing Vitals reviewed and noted as below Head; Atraumatic, normocephalic EYES: Pupils are equal, round and reactive to light accommodation. Eye muscles and extraocular movement intact. Sclera is anicteric. Neck; supple no lymphadenopathy, no thyromegaly or bruit Lungs: improved respiratory rate/effort. Breath sounds bilateral equal, diminished at bases but overall limited exam due to her obesity Heart: normal rate. s1s2 normal. No rub or gallop. Extremities: 2+ edema, No varicose veins Neurological: Patient is confused Skin: Warm and dry. Normal turgor. No rash. Palpitation: Normal elasticity for age Abdomen: Abdomen is + colostomy. midline donita + Psych: deferred MSK: no joint tenderness or swelling. Digits and nails normal, no deformity : kidney or bladder not palpable. has linares left IJ PC + rt side criss cath Labs/imaging reviewed. Past medical history, past surgical history, family history, social history, allergy reviewed and noted as below Family hx: no hx of CKD. Rest non-contributory Objective - Vital Signs/Intake and Output Vital Signs (last 24 hours): Temp Pulse Resp BP Pulse Ox 98.5 F 100 H 18 155/63 H 97 05/30/18 12:00 05/30/18 12:00 05/30/18 12:00 05/30/18 12:00 05/30/18 09:54 Intake and Output: 05/30/18 05/30/18 06:59 18:59 Intake Total 0 Output Total 25 Balance -25 - Medications Medications: Current Medications Acetylcysteine (Acetylcysteine 20%) 4 ml IH BIDRESP JR Last Admin: 05/30/18 07:40 Dose: Not Given Albuterol/Ipratropium (Duoneb 3 Mg/0.5 Mg (3 Ml) Ud) 3 ml IH [id number] PRN PRN Reason: Shortness of Breath Last Admin: 05/27/18 20:26 Dose: 3 ml Apixaban (Eliquis) 2.5 mg PO BID [facility]; Protocol Last Admin: 05/29/18 14:03 Dose: Not Given Arformoterol Tartrate (Brovana) 15 mcg IH [id number] [facility] Last Admin: 05/30/18 07:41 Dose: Not Given Budesonide (Pulmicort Respules) 0.5 mg IH [id number] [facility] Last Admin: 05/30/18 07:41 Dose: Not Given Calcium Acetate (Phoslo) 667 mg PO [facility] Clonazepam (Klonopin) 0.5 mg PO BID PRN; Protocol PRN Reason: Anxiety Last Admin: 05/28/18 22:00 Dose: 0.5 mg Clonidine HCl (Catapres) 0.1 mg PO Q6 PRN PRN Reason: Other Last Admin: 05/30/18 10:40 Dose: 0.1 mg Clonidine HCl (Catapres-Tts3 0.3 Mg/24 Hr) 1 patch TD Q7D@1000 [facility] Last Admin: 05/29/18 15:40 Dose: 1 patch Darbepoetin Timothy (Aranesp) 150 mcg SC QWK [facility] Last Admin: 05/28/18 19:02 Dose: 150 mcg Docusate Sodium (Colace) 100 mg PO TID [facility] Last Admin: 05/30/18 10:44 Dose: 100 mg Fentanyl (Fentanyl) 25 mcg IV Q5M PRN PRN Reason: Pain, moderate (4-7) Stop: 05/31/18 08:54 Hydralazine HCl (Apresoline) 100 mg PO TID [facility] Last Admin: 05/30/18 10:42 Dose: 100 mg Insulin Detemir (Levemir) 20 unit SC [facility] Last Admin: 05/29/18 22:02 Dose: 20 units Insulin Human Regular (Humulin R Low) 0 units SC ACHS [facility]; Protocol Last Admin: 05/29/18 22:01 Dose: Not Given Labetalol HCl (Trandate) 200 mg PO TID [facility] Last Admin: 05/30/18 10:42 Dose: 200 mg Magnesium Oxide (Mag-Ox) 400 mg PO BID [facility] Last Admin: 05/30/18 10:42 Dose: 400 mg Methylprednisolone (Solu-Medrol) 30 mg IVP DAILY [facility] Last Admin: 05/30/18 10:44 Dose: 30 mg Montelukast Sodium (Singulair) 10 mg PO HS [facility] Last Admin: 05/29/18 21:50 Dose: 10 mg Multivitamins (Thera Tab) 1 tab PO 0800 [facility] Last Admin: 05/30/18 10:51 Dose: 1 tab Pantoprazole Sodium (Protonix Ec Tab) 40 mg PO HS [facility] Last Admin: 05/29/18 21:48 Dose: 40 mg Pregabalin (Lyrica) 50 mg PO BID [facility] Last Admin: 05/30/18 10:42 Dose: 50 mg Risperidone (Risperdal Tab) 1 mg PO DAILY [facility]; Protocol Last Admin: 05/30/18 10:41 Dose: 1 mg Risperidone (Risperdal Tab) 1 mg PO HS [facility]; Protocol Last Admin: 05/30/18 02:54 Dose: 1 mg Saliva Substitute (Saliva Substitute) 0 ml PO 5XD PRN PRN Reason: DRY MOUTH Silver Sulfadiazine (Silvadene 1% 25 Gm) 0 gm TP BID [facility] Last Admin: 05/29/18 11:46 Dose: Not Given Sodium Chloride ([place] Nasal [place]) 0 ml NS Q2H PRN PRN Reason: Nasal congestion - Labs Labs: 05/30/18 06:06 05/30/18 06:06 PT 12.5 SECONDS (9.4-12.5) 05/30/18 06:06 INR 1.09 05/30/18 06:06 APTT 27.1 Seconds (25.1-36.5) 05/30/18 06:06
[2018-05-30] MEDS: Insulin Reg-LOW-Coverage SC SCH ×3 (20:08→22:14)
[2018-05-30] MEDS: Silver Sulfadiazine 1% Cream (25 gm) TP SCH ×2 (20:11)
--- NOTE | 2018-05-30 20:43 | OP ---
PROCEDURE DATE: 05/30/2018 PREOPERATIVE DIAGNOSIS: Acute kidney injury. POSTOPERATIVE DIAGNOSIS: Acute kidney injury. OPERATION PERFORMED: Left internal jugular PermCath placement. SURGEON: Osmar Mckeon MD ASSISTANTS: Twan Núñez DO and Gary Burton DO TYPE OF ANESTHESIA: IV sedation. ESTIMATED BLOOD LOSS: Minimal. INDICATIONS: This is a 62-year-old female who had initially presented to the hospital for an urinary tract infection. The patient was found to have worsening kidney function since arrival. A decision was initially made to have the patient undergo temporary dialysis. A more long-term solution was needed and required, therefore the decision for a PermCath placement was decided. DESCRIPTION OF PROCEDURE: Informed consent was obtained from the patient and the son. Risks and benefits were explained and the procedure was understood. The patient was taken to the operating room placed supine position with a neck roll, prepped and draped in the usual sterile fashion. The left IJ initially had a Shiley in place and it was noted, cleaned, prepped and draped in a sterile fashion. A time-out was taken, identifying the correct patient, procedure, side. A J-wire was inserted through the Shiley catheter. Placement was confirmed with fluoroscopy. The Shiley was removed, maintaining the guidewire in place. Next, the catheter introducer sheath was placed over the guidewire and the small neck incision was made with a #11 blade allowing for ease and passage of the sheath. Guide wire was removed. Attention was taken to the left chest outlined by about 7 cm and incision was made with a #11 blade and the dialysis catheter was tunneled through and the tunneling catheter was then exposed over the incision where the sheath catheter was introduced. The catheter was appropriately assembled and the catheter was placed into the sheath. The sheath was then tracked while appropriately advancing the catheter under direct-guided fluoroscopy. There was appropriate confirmation with fluoroscopy and there was no kink in the catheter. Each of the 2 lumens were aspirated with good blood return and flushed with heparinized saline solution. The catheter was secured with 3-0 nylon. The incision over the neck was approximated with 4-0 Monocryl and closed with Dermabond. Sterile dressing was applied. The patient was returned to the PACU in stable condition. All counts were correct at the end of the procedure. Dr. Mckeon was present for the entire case. Gary Burton DO Osmar Mckeon MD [facility] # [id number] ANT
[2018-05-30] MEDS: Morphine 2 mg/ml ISec IVP PRN (21:12)
[2018-05-30] MEDS: Pantoprazole 40 mg EC Tab PO SCH (21:13)
[2018-05-30] MEDS: Insulin Detemir 100 units/ml Vial (Levemir) SC SCH (22:19)
--- NOTE | 2018-05-30 23:48 | PN ---
DATE: 05/30/2018 This is [facility] visit on the telemetry floor. For Dr. Faye. SUBJECTIVE: The patient is a 62-year-old female. Seen lying awake in bed, somnolent but arousable. Now status post treatment with dialysis began two days prior with significant improvement of her kidney function as per Dr. Dawn, her manufacturing support engineer. The patient was also treated for pulmonary congestion with fluid overload. She was recently transfused for a hemoglobin of 7.7 with an improvement to 8.9 after 1 unit of blood on 05/24/2018. At present, she is lying, awake, confused. Her nurse reported that there is irritation due to her Marrero catheter with early decubitus signs with consideration for discontinuation as the patient is making scant amount of urine and she is on dialysis. However should the Marrero be taken out, there is consideration for worsening that she would soil on herself with worsening skin breakdown possible. OBJECTIVE/PHYSICAL EXAMINATION: VITAL SIGNS: Temperature 97.8, pulse 89, respirations 18, blood pressure 140/55, pulse oximetry 97%. HEENT: Unremarkable. NECK: Supple. LUNGS: Occasional rhonchi bilaterally with decreased breath sounds due to body habitus. HEART: Regular rate. ABDOMEN: With viable colostomy and surgical dressings in place. EXTREMITIES: +1 edema bilaterally of the feet. NEUROLOGIC: Somnolent, but arousable. LABORATORY DATA: The patient's labs were done. White blood cell count of 8.3, hemoglobin of 9.2, hematocrit 31.1, platelet count of 192,000. Metabolic panel showing a BUN of 40 with a creatinine of 3.1, post-dialysis with her BUN of 75, creatinine of 4.9 on . Her calcium at that day was 6.8, it is now improved to 7.1 with a phosphorus of 6. The patient had a chest x-ray done earlier today, was read as moderate cardiomegaly and moderate vascular congestion. ASSESSMENT AND PLAN: The assessment for this patient is that of acute renal failure, on dialysis; status post colostomy revision with hernia repair on the abdominal wall; hyperkalemia, improved; congestive heart failure; atherosclerotic cardiovascular disease; history of deep venous thrombosis and pulmonary embolism, on Eliquis; history of rectal cancer; history of pulmonary hypertension; angioplasty; recent myocardial infarction; morbid obesity; mental status change and confusion secondary to above; anemia of chronic disease. Plan for this patient is to continue present medical region as per Dr. Florian and Dr. Dawn with the patient to be out of bed once it is feasible with her INR noted to be 1.09 with the patient now being off Eliquis to be restarted as this was held for her Shiley insertion since yesterday. This is a complex patient with comprehensive medically necessary and appropriate visit carried out in excess of 20 minutes with the patient's questions answered to her satisfaction. Zuhair Herrera MD
--- NOTE | 2018-05-31 06:52 | CP.PCM.PN ---
Subjective - Date & Time of Evaluation Date of Evaluation: 05/31/18 Time of Evaluation: 06:25 - Subjective Subjective: Awake, Lying in bed, no distress, BIPAP in use Reason for consultation and follow up: Cardiac evaluation of history of congestive heart failure, transferred from alf due to lethargy, chronic kidney disease,started on hemodialysis Seen and examined by me and Dr. Guerrero Objective - Vital Signs/Intake and Output Vital Signs (last 24 hours): Temp Pulse Resp BP Pulse Ox 98.3 F 72 21 164/49 H 95 05/31/18 06:00 05/31/18 06:00 05/31/18 06:00 05/31/18 06:00 05/31/18 06:00 Intake and Output: 05/30/18 05/31/18 18:59 06:59 Intake Total 240 120 Output Total 50 120 Balance 190 0 - Medications Medications: Current Medications Acetylcysteine (Acetylcysteine 20%) 4 ml IH BIDRESP [facility] Last Admin: 05/30/18 19:41 Dose: 4 ml Albuterol/Ipratropium (Duoneb 3 Mg/0.5 Mg (3 Ml) Ud) 3 ml IH [id number] PRN PRN Reason: Shortness of Breath Last Admin: 05/27/18 20:26 Dose: 3 ml Apixaban (Eliquis) 2.5 mg PO BID [facility]; Protocol Last Admin: 05/29/18 14:03 Dose: Not Given Arformoterol Tartrate (Brovana) 15 mcg IH [id number] [facility] Last Admin: 05/30/18 19:41 Dose: 15 mcg Budesonide (Pulmicort Respules) 0.5 mg IH [id number] [facility] Last Admin: 05/30/18 19:41 Dose: 0.5 mg Calcium Acetate (Phoslo) 667 mg PO WM [facility] Last Admin: 05/30/18 20:10 Dose: 667 mg Clonazepam (Klonopin) 0.5 mg PO BID PRN; Protocol PRN Reason: Anxiety Last Admin: 05/30/18 21:13 Dose: 0.5 mg Clonidine HCl (Catapres) 0.1 mg PO Q6 PRN PRN Reason: Other Last Admin: 05/30/18 10:40 Dose: 0.1 mg Clonidine HCl (Catapres-Tts3 0.3 Mg/24 Hr) 1 patch TD Q7D@1000 [facility] Last Admin: 05/29/18 15:40 Dose: 1 patch Darbepoetin Timothy (Aranesp) 150 mcg SC QWK [facility] Last Admin: 05/28/18 19:02 Dose: 150 mcg Docusate Sodium (Colace) 100 mg PO TID [facility] Last Admin: 05/30/18 20:06 Dose: 100 mg Fentanyl (Fentanyl) 25 mcg IV Q5M PRN PRN Reason: Pain, moderate (4-7) Stop: 05/31/18 08:54 Hydralazine HCl (Apresoline) 100 mg PO TID [facility] Last Admin: 05/30/18 20:05 Dose: 100 mg Insulin Detemir (Levemir) 20 unit SC [facility] Last Admin: 05/30/18 22:19 Dose: 20 units Insulin Human Regular (Humulin R Low) 0 units SC [facility]; Protocol Last Admin: 05/30/18 22:14 Dose: Not Given Labetalol HCl (Trandate) 200 mg PO TID [facility] Last Admin: 05/30/18 20:12 Dose: 200 mg Magnesium Oxide (Mag-Ox) 400 mg PO BID [facility] Last Admin: 05/30/18 20:13 Dose: 400 mg Methylprednisolone (Solu-Medrol) 30 mg IVP DAILY [facility] Last Admin: 05/30/18 10:44 Dose: 30 mg Montelukast Sodium (Singulair) 10 mg PO [facility] Last Admin: 05/30/18 21:13 Dose: 10 mg Morphine Sulfate (Morphine) 2 mg IVP Q4H PRN PRN Reason: Pain, severe (8-10) Last Admin: 05/30/18 21:12 Dose: 2 mg Multivitamins (Thera Tab) 1 tab PO 0800 [facility] Last Admin: 05/30/18 10:51 Dose: 1 tab Pantoprazole Sodium (Protonix Ec Tab) 40 mg PO [facility] Last Admin: 05/30/18 21:13 Dose: 40 mg Risperidone (Risperdal Tab) 1 mg PO DAILY [facility]; Protocol Last Admin: 05/30/18 10:41 Dose: 1 mg Risperidone (Risperdal Tab) 1 mg PO HS [facility]; Protocol Last Admin: 05/30/18 21:13 Dose: 1 mg Saliva Substitute (Saliva Substitute) 0 ml PO 5XD PRN PRN Reason: DRY MOUTH Sodium Chloride ([place] Nasal [place]) 0 ml NS Q2H PRN PRN Reason: Nasal congestion - Labs Labs: 05/30/18 06:06 05/30/18 06:06 PT 12.5 SECONDS (9.4-12.5) 05/30/18 06:06 INR 1.09 05/30/18 06:06 APTT 27.1 Seconds (25.1-36.5) 05/30/18 06:06 - Constitutional Appears: Non-toxic, No Acute Distress - Head Exam Head Exam: NORMAL INSPECTION, NORMOCEPHALIC - Eye Exam Eye Exam: Normal appearance Pupil Exam: NORMAL ACCOMODATION - ENT Exam ENT Exam: Mucous Membranes Moist, Normal Exam - Respiratory Exam Respiratory Exam: Decreased Breath Sounds, Clear to Ausculation Bilateral, NORMAL BREATHING PATTERN - Cardiovascular Exam Cardiovascular Exam: REGULAR RHYTHM, +S1, +S2 Additional comments: right chest port Left IJ permacath catheter - GI/Abdominal Exam GI & Abdominal Exam: Soft, Normal Bowel Sounds Additional comments: colostomy - Extremities Exam Additional comments: 3-4+ edema - Neurological Exam Neurological Exam: Alert, Awake - Psychiatric Exam Psychiatric exam: Normal Affect, Normal Mood - Skin Skin Exam: Dry, Normal Color, Warm Assessment and Plan - Assessment and Plan (Free Text) Assessment: A 62 year old morbidly obese female who got transferred to [facility] from alf due to altered mental status. Patient is known to service from previous multiple admissions. History of coronary artery disease with stent of circumflex,hypertension,hyperlipidemia,diabetes,sleep apnea,COPD, congestive heart failure, DVT/PE. History of bowel resection in the past with colostomy. She was admitted to [facility] due to small bowel obstruction and on 04/16/18 she had explor-lap and lysis of adhesions and ventral hernia repair with revision of colostomy (Dr. Mckeon).Postoperatively, patient had infection involving th mesh placed for the hernia repair and it was recommended that she undergo an additional procedure to have the mesh removed however patient refused surgical procedure. She was stablized and transferred to [facility]. Chest X ray showed severe cardiomegaly,moderate to severe pulmonary congestion.Not in respiratory distress, On nasal cannula 4l/min. Troponin 0.14/.15, denies chest pain, EKG- normal sinus rhythm, elevated due to renal insuffiency. Will treat medically. Surgical follow up for abdominal wound. Symptoms clinically improved. Cardiac status stable.Repeat Chest X ray showed improved vascular congestion. Being followed up by Nephrology for worsening renal status.On hemodialysis. Shiley catheter changed to permacath left IJ yesterday. discahrge planning. BIPAP in use. Plan: No distress, Denies chest pain, BIPAP in use Cardiac status stable Heart rate controlled Blood pressure controlled On hemodialysis Left IJ shiley catheter changed to permacath yesterday Followed up by Renal On Hydralazine 100mg TID,Labetolol 200 mg TID, Will start low dose Losartan Continue current treatment Continue current medications Glucose controlled Discharge planning Will follow up Plan and treatment discussed with Dr. Guerrero
[2018-05-31] MEDS: Budesonide 0.5 mg/2 ml Inhal Susp UD IH SCH ×2 (07:50→19:50)
[2018-05-31] MEDS: Acetylcysteine 20% Inhal Soln (4ml) IH SCH ×2 (07:50→19:48)
[2018-05-31] MEDS: Arformoterol 15 mcg/2 ml Inh Sol IH SCH ×2 (07:50→19:48)
--- NOTE | 2018-05-31 08:02 | CP.PCM.PN ---
Subjective - Date & Time of Evaluation Date of Evaluation: 05/31/18 Time of Evaluation: 07:58 - Subjective Subjective: Nephrology Consultation Note: Assessment: critical SHELBI ? pre-renal/ATN versus AIN as also with peripheral eosinophilia and eosinolphiuria, started HD 05/28/18 pulmonary congestion with fluid overload. hypomag, hyperphosphatemia hyperkalemia SBO s/p ex lap with ? MESH infection AMS, delirium left adrenal adenoma, Rt renal hyperdense cyst chronic hypercapnic respi failure Diabetic chronic Kidney Disease (E11.22) Hypertensive Chronic Kidney Disease (I12.9) Chronic Kidney Disease (N18.3) Stage 3 with 2.4 gm proteinuria (R80.9) likely due to DM/HTN/Obesity Anemia Vit D def morbid obesity, CAD s/p stent, COPD/SUMMER, rectal ca s/p colostomy Plan remains very overloaded will do an extra session of HD today continue antihypertensive Monitor Input/Output, daily weights and renal function with basic metabolic panel PRBC as needed d/w heme and okay to use KAVYA from heme perspective. on weekly aransep supplement lytes as needed d/w ID re; concerns for AIN, eosinophilia and antibiotics. had d/c abx started on steroids - will defer to pcp but given co-morbids would not rec prolonged course ok from my standpoint if primary wnats to d/c linares Adrenal adenoma work up with plasma renin/aldosterone, plasma metanephrine NEGATIVE. outpt 1 mg dexa suppression test repeat renal sono in 6 months to assess her Rt renal cyst Dose meds/antibiotics for reduced GFR. Avoid fleets enema/magnesium based laxatives. Avoid nephrotoxins/NSAIDs/ iodinated contrast (unless needed emergently) Glycemic control S: seen and examined no acute events o/n remains on bipap ROS: pt not able to provide much reliably. confused Physical Examination: General Appearance: comfortable, morbidly obese. not in acute respi distress rem ains confused. overall ill appearing on bipap Vitals reviewed and noted as below Head; Atraumatic, normocephalic EYES: Pupils are equal, round and reactive to light accommodation. Sclera is anicteric. Neck; supple no lymphadenopathy, no thyromegaly or bruit Lungs: improved respiratory rate/effort. Breath sounds bilateral equal, diminished at bases but overall limited exam due to her obesity Heart: normal rate. s1s2 normal. No rub or gallop. Extremities: 2+ edema, No varicose veins Neurological: Patient is confused Skin: Warm and dry. Normal turgor. No rash. Palpitation: Normal elasticity for age Abdomen: Abdomen is + colostomy. midline donita + Psych: deferred MSK: no joint tenderness or swelling. Digits and nails normal, no deformity : kidney or bladder not palpable. has linares left IJ PC + rt side criss cath Labs/imaging reviewed. Past medical history, past surgical history, family history, social history, allergy reviewed and noted as below Family hx: no hx of CKD. Rest non-contributory Objective - Vital Signs/Intake and Output Vital Signs (last 24 hours): Temp Pulse Resp BP Pulse Ox 98.3 F 72 21 164/49 H 95 05/31/18 06:00 05/31/18 06:00 05/31/18 06:00 05/31/18 06:00 05/31/18 06:00 Intake and Output: 05/31/18 05/31/18 06:59 18:59 Intake Total 120 Output Total 120 Balance 0 - Medications Medications: Current Medications Acetylcysteine (Acetylcysteine 20%) 4 ml IH BIDRESP [facility] Last Admin: 05/31/18 07:50 Dose: 4 ml Albuterol/Ipratropium (Duoneb 3 Mg/0.5 Mg (3 Ml) Ud) 3 ml IH [id number] PRN PRN Reason: Shortness of Breath Last Admin: 05/27/18 20:26 Dose: 3 ml Apixaban (Eliquis) 2.5 mg PO BID [facility]; Protocol Last Admin: 05/29/18 14:03 Dose: Not Given Arformoterol Tartrate (Brovana) 15 mcg IH [id number] [facility] Last Admin: 05/31/18 07:50 Dose: 15 mcg Budesonide (Pulmicort Respules) 0.5 mg IH [id number] [facility] Last Admin: 05/31/18 07:50 Dose: 0.5 mg Calcium Acetate (Phoslo) 667 mg PO [facility] Last Admin: 05/30/18 20:10 Dose: 667 mg Clonazepam (Klonopin) 0.5 mg PO BID PRN; Protocol PRN Reason: Anxiety Last Admin: 12/27/18 21:13 Dose: 0.5 mg Clonidine HCl (Catapres) 0.1 mg PO Q6 PRN PRN Reason: Other Last Admin: 05/30/18 10:40 Dose: 0.1 mg Clonidine HCl (Catapres-Tts3 0.3 Mg/24 Hr) 1 patch TD Q7D@1000 [facility] Last Admin: 05/29/18 15:40 Dose: 1 patch Darbepoetin Timothy (Aranesp) 150 mcg SC QWK [facility] Last Admin: 05/28/18 19:02 Dose: 150 mcg Docusate Sodium (Colace) 100 mg PO TID [facility] Last Admin: 05/30/18 20:06 Dose: 100 mg Fentanyl (Fentanyl) 25 mcg IV Q5M PRN PRN Reason: Pain, moderate (4-7) Stop: 05/31/18 08:54 Hydralazine HCl (Apresoline) 100 mg PO TID [facility] Last Admin: 05/30/18 20:05 Dose: 100 mg Insulin Detemir (Levemir) 20 unit SC [facility] Last Admin: 05/30/18 22:19 Dose: 20 units Insulin Human Regular (Humulin R Low) 0 units SC [facility]; Protocol Last Admin: 05/30/18 22:14 Dose: Not Given Labetalol HCl (Trandate) 200 mg PO TID [facility] Last Admin: 05/30/18 20:12 Dose: 200 mg Magnesium Oxide (Mag-Ox) 400 mg PO BID [facility] Last Admin: 05/30/18 20:13 Dose: 400 mg Methylprednisolone (Solu-Medrol) 30 mg IVP DAILY [facility] Last Admin: 05/30/18 10:44 Dose: 30 mg Montelukast Sodium (Singulair) 10 mg PO [facility] Last Admin: 05/30/18 21:13 Dose: 10 mg Morphine Sulfate (Morphine) 2 mg IVP Q4H PRN PRN Reason: Pain, severe (8-10) Last Admin: 05/30/18 21:12 Dose: 2 mg Multivitamins (Thera Tab) 1 tab PO 0800 [facility] Last Admin: 05/30/18 10:51 Dose: 1 tab Pantoprazole Sodium (Protonix Ec Tab) 40 mg PO [facility] Last Admin: 05/30/18 21:13 Dose: 40 mg Risperidone (Risperdal Tab) 1 mg PO DAILY [facility]; Protocol Last Admin: 05/30/18 10:41 Dose: 1 mg Risperidone (Risperdal Tab) 1 mg PO HS [facility]; Protocol Last Admin: 05/30/18 21:13 Dose: 1 mg Saliva Substitute (Saliva Substitute) 0 ml PO 5XD PRN PRN Reason: DRY MOUTH Sodium Chloride ([place] Nasal [place]) 0 ml NS Q2H PRN PRN Reason: Nasal congestion - Labs Labs: 05/30/18 06:06 05/30/18 06:06 PT 12.5 SECONDS (9.4-12.5) 05/30/18 06:06 INR 1.09 05/30/18 06:06 APTT 27.1 Seconds (25.1-36.5) 05/30/18 06:06
[2018-05-31] MEDS: Insulin Reg-LOW-Coverage SC SCH ×4 (08:30→22:00)
--- NOTE | 2018-05-31 10:15 | PN ---
DATE: 05/30/2018 SUBJECTIVE: The patient is currently status post insertion of a dialysis catheter currently on hemodialysis inpatient. The patient was seen and examined on the in dialysis unit. She is lethargic. She just had surgery and sedation for her catheter. PHYSICAL EXAMINATION: As follows, VITAL SIGNS: Temperature is 99.3, heart rate 18, blood pressure 167/67 and respiratory rate 18. HEAD AND NECK: She is lethargic, but she responded to calling her name, open her eyes, she moves her finger towards what she did. CHEST: Clear with left side catheter inserted in the neck area. CARDIAC: First sound and second sound normal. ABDOMEN: Obese with the midline incision and right side colostomy. EXTREMITIES: Lower extremity, bilateral leg edema. NEUROLOGIC: She is sedated, but she moves extremities. LABORATORY DATA: On , her white count 8.3, hemoglobin 9.2, hematocrit 31.1 and platelets 192. Chemistry: Sodium 132, potassium 4.3, chloride 99, bicarb 26, BUN 40, creatinine 3.1, calcium , sugar 101 and phosphorous 6 and alkaline phos 223. IMPRESSION AND PLAN: 1. Acute renal failure on top of chronic renal failure, seems stable. Continue hemodialysis, renal placement therapy. Hypocalcemia, electrolyte abnormalities, being replaced by Dr. Park. 2. Severe hypertension, on multiple medications. 3. Anemia, rectal cancer, status post surgery and radiation with colostomy permanent. 4. Diabetes, insulin-dependant, blood sugar was checked in dialysis unit, was 81 and I gave her D50. 5. Congestive heart failure right sided. 6. Coronary artery disease. We will right coronary artery stent. 7. History of deep venous thrombosis and pulmonary embolism, on Eliquis. We will resume Eliquis 2.5 b.i.d. 8. Morbid obesity, chronic obstructive pulmonary disease, obstructive sleep apnea. Continue BiPAP. PLAN: Continue current therapy. Continue renal replacement therapy. She may need rehabilitation unit with dialysis unit probably [facility] would be a better choice. At this time, we will continue current therapy. Elroy Florian MD [facility] # [phone]
[2018-05-31] MEDS: Magnesium Oxide 400 mg Tab UD PO SCH ×2 (10:47→18:27)
[2018-05-31] MEDS: Multivitamin Therapeutic Tab PO SCH (10:48)
[2018-05-31] MEDS: MethylPREDNISolone 40 mg Vial IVP SCH (10:49)
--- NOTE | 2018-05-31 10:50 | CP.PCM.PN ---
Subjective - Date & Time of Evaluation Date of Evaluation: 05/31/18 Time of Evaluation: 10:30 - Subjective Subjective: Patient still agitated at times, no fevers. Objective - Vital Signs/Intake and Output Vital Signs (last 24 hours): Temp Pulse Resp BP Pulse Ox 99.3 F 75 17 173/74 H 97 05/30/18 09:54 05/30/18 10:42 05/30/18 09:54 05/30/18 10:42 05/30/18 09:54 Intake and Output: 05/30/18 05/30/18 06:59 18:59 Intake Total 0 Output Total 25 Balance -25 - Medications Medications: Current Medications Acetylcysteine (Acetylcysteine 20%) 4 ml IH BIDRESP [facility] Last Admin: 05/30/18 07:40 Dose: Not Given Albuterol/Ipratropium (Duoneb 3 Mg/0.5 Mg (3 Ml) Ud) 3 ml IH [id number] PRN PRN Reason: Shortness of Breath Last Admin: 05/27/18 20:26 Dose: 3 ml Apixaban (Eliquis) 2.5 mg PO BID [facility]; Protocol Last Admin: 05/29/18 14:03 Dose: Not Given Arformoterol Tartrate (Brovana) 15 mcg IH [id number] [facility] Last Admin: 05/30/18 07:41 Dose: Not Given Budesonide (Pulmicort Respules) 0.5 mg IH [id number] [facility] Last Admin: 05/30/18 07:41 Dose: Not Given Calcium Acetate (Phoslo) 667 mg PO [facility] Clonazepam (Klonopin) 0.5 mg PO BID PRN; Protocol PRN Reason: Anxiety Last Admin: 05/28/18 22:00 Dose: 0.5 mg Clonidine HCl (Catapres) 0.1 mg PO Q6 PRN PRN Reason: Other Last Admin: 05/30/18 10:40 Dose: 0.1 mg Clonidine HCl (Catapres-Tts3 0.3 Mg/24 Hr) 1 patch TD Q7D@1000 [facility] Last Admin: 05/29/18 15:40 Dose: 1 patch Darbepoetin Timothy (Aranesp) 150 mcg SC QWK [facility] Last Admin: 05/28/18 19:02 Dose: 150 mcg Docusate Sodium (Colace) 100 mg PO TID [facility] Last Admin: 05/30/18 10:44 Dose: 100 mg Fentanyl (Fentanyl) 25 mcg IV Q5M PRN PRN Reason: Pain, moderate (4-7) Stop: 05/31/18 08:54 Hydralazine HCl (Apresoline) 100 mg PO TID [facility] Last Admin: 05/30/18 10:42 Dose: 100 mg Insulin Detemir (Levemir) 20 unit SC [facility] Last Admin: 05/29/18 22:02 Dose: 20 units Insulin Human Regular (Humulin R Low) 0 units SC [facility]; Protocol Last Admin: 05/29/18 22:01 Dose: Not Given Labetalol HCl (Trandate) 200 mg PO TID [facility] Last Admin: 05/30/18 10:42 Dose: 200 mg Magnesium Oxide (Mag-Ox) 400 mg PO BID [facility] Last Admin: 05/30/18 10:42 Dose: 400 mg Methylprednisolone (Solu-Medrol) 30 mg IVP DAILY [facility] Last Admin: 05/30/18 10:44 Dose: 30 mg Montelukast Sodium (Singulair) 10 mg PO [facility] Last Admin: 05/29/18 21:50 Dose: 10 mg Morphine Sulfate (Morphine) 2 mg IVP Q4H PRN PRN Reason: Pain, severe (8-10) Last Admin: 05/28/18 23:43 Dose: 2 mg Multivitamins (Thera Tab) 1 tab PO 0800 [facility] Last Admin: 05/30/18 10:51 Dose: 1 tab Pantoprazole Sodium (Protonix Ec Tab) 40 mg PO [facility] Last Admin: 05/29/18 21:48 Dose: 40 mg Pregabalin (Lyrica) 50 mg PO BID [facility] Last Admin: 05/30/18 10:42 Dose: 50 mg Risperidone (Risperdal Tab) 1 mg PO DAILY [facility]; Protocol Last Admin: 05/30/18 10:41 Dose: 1 mg Risperidone (Risperdal Tab) 1 mg PO [facility]; Protocol Last Admin: 05/30/18 02:54 Dose: 1 mg Saliva Substitute (Saliva Substitute) 0 ml PO 5XD PRN PRN Reason: DRY MOUTH Silver Sulfadiazine (Silvadene 1% 25 Gm) 0 gm TP BID [facility] Last Admin: 05/29/18 11:46 Dose: Not Given Sodium Chloride ([place] Nasal [place]) 0 ml NS Q2H PRN PRN Reason: Nasal congestion - Labs Labs: 05/30/18 06:06 05/30/18 06:06 PT 12.5 SECONDS (9.4-12.5) 05/30/18 06:06 INR 1.09 05/30/18 06:06 APTT 27.1 Seconds (25.1-36.5) 05/30/18 06:06 - Constitutional Appears: Chronically Ill - Head Exam Head Exam: NORMAL INSPECTION - Respiratory Exam Respiratory Exam: Decreased Breath Sounds - Cardiovascular Exam Cardiovascular Exam: +S1, +S2 - GI/Abdominal Exam GI & Abdominal Exam: Soft. absent: Tenderness Assessment and Plan - Assessment and Plan (Free Text) Plan: Assessment S/P treatment of abdominal wall cellulitis with probable infected abdominal mesh; most recent cultures from 05/03/2018 showed Pseudomonas and C. famata - eosinophilia R/O due to meds acute renal failure S/P HD catheter placement S/P small bowel obstruction in this patient with ventral wall hernia, S/P ventral incarcerated hernia repair, adhesiolysis and revision of colostomy S/P acute coronary syndrome with NSTEMI COPD history of VRE UTI history of severe sepsis secondary to left medial thigh abscess, growing Proteus, S/P incision and drainage DM HTN CAD Unresectable rectal cancer S/P chemotherapy and radiation therapy S/P colostomy S/P Port-a-cath placement morbid obesity with BMI 50 obstructive sleep apnea history of pulmonary embolism S/P IVC filter placement Plan we have discontinued Cefepime and Diflucan because of the eosinophilia and will continue to monitor off antibiotics since she is at risk for hospital-acquired infections; follow up further plans of surgery, but apparently the patient has been refusing to have the mesh removed as per other doctors - discussed with Dr. Florian previously Renal following and managing acute renal failure and may need dialysis overall prognosis is poor
--- NOTE | 2018-05-31 11:10 | PN ---
DATE: 05/31/2018 PULMONARY PROGRESS NOTE REFERRING PHYSICIAN: Elroy Florian MD SUBJECTIVE: The patient is sitting up in bed with BiPAP in place, nurse is at bedside. Nurse reports that the patient tends to desaturate sometimes after receiving Klonopin as needed for anxiety. No headache, rhinitis, cough, shortness of breath, chest pain, abdominal pain, diarrhea or leg pain reported. OBJECTIVE: GENERAL: No acute distress. VITAL SIGNS: Blood pressure 164/49, pulse 70, temperature 98.3 and oxygen saturation 95%. HEENT: Moist mucous membranes. Crowded airway. NECK: Supple. No JVD. LUNGS: Few rhonchi bilaterally. CARDIOVASCULAR: S1 and S2 audible. ABDOMEN: Soft, colostomy with soft stool present. Surgical abdominal wound with dressing in place. EXTREMITIES: Bilateral lower extremity edema. NEUROLOGICAL: Awake, alert and verbal. Follows commands. MEDICATIONS: Reviewed. Brovana 15 mcg every 12 hours, Pulmicort 0.5 mg every 12 hours, calcium acetate 667 mg p.o. Wednesdays and Mondays, Klonopin 0.5 mg twice a day p.r.n., clonidine 0.1 mg every 6 hours p.r.n., clonidine 0.3 mg patch every 7 days, Aranesp 150 mcg weekly, Colace 100 mg three times a day, hydralazine 100 mg three times a day, Levemir 20 units subcutaneously at bedtime, Humulin R sliding scale a.c. and at bedtime, labetalol 200 mg three times a day, Cozaar 25 mg daily, magnesium oxide 400 mg twice a day, Solu-Medrol 30 mg IV push daily, Singulair 10 mg at bedtime, morphine 2 mg IV push every 4 hours p.r.n., multivitamin 1 tab daily, Protonix 40 mg at bedtime, Risperdal 1 mg daily, Risperdal 1 mg at bedtime, saliva substitute 5 times a day p.r.n. and [place] nasal spray every 2 hours p.r.n. LABORATORY DATA: Reviewed. POC glucose 101. Blood culture final, no growth. IMPRESSION AND PLAN: Status post laparotomy for small bowel obstruction, relocation of colostomy, sleep apnea syndrome, hypoventilation syndrome, renal failure now on hemodialysis, history of pulmonary embolism, deep venous thrombosis, chronic lung disease, history of mesh infection in the abdomen, pulmonary hypertension, morbid obesity, status post Perma-Cath placement for hemodialysis. Pulmonary point of view, desaturation during the day after Klonopin, it is related to sleep apnea syndrome as the patient after Klonopin becomes relaxed and tends to sleep. Continue bilevel positive airway pressure use at bedtime and may use during the day when sleepy. Continue inhaled bronchodilators, sleep apnea precautions, head of bed elevated at 45 degrees, gastric prophylaxis, deep venous thrombosis prophylaxis. Nephrology followup. This patient was seen and examined with Dr. Ayala. Discussed assessment and plan as described above. Thank you for this consult and we will follow with you. Breezy Schafer APN Pamela Ayala MD
--- NOTE | 2018-05-31 14:10 | PN ---
DATE: 05/31/2018 SUBJECTIVE: The patient is a 62-year-old [place] female who has been exhibiting problematic behavior with incessant crying out. I have reviewed the patient's situation with nursing. The patient has periods where she is sedate, periods where she cries out, periods of lucidity She is presently undergoing dialysis and has expressed a concern that her brother, who also had undergone dialysis, as a result of this procedure. Thus, her cognitive awareness is greater than I had anticipated as she is able to relate her own plight to that of another significant other. Her intermittent agitation, appears to be of longstanding duration, although the intensity may be worse presently. The patient also suffers from severe hypertension, anemia, rectal cancer status post surgery and radiation with a colostomy in place, diabetes, congestive heart failure, coronary artery disease, history of deep venous thrombosis. PHYSICAL EXAMINATION: VITAL SIGNS: Blood pressure 167/67, respiratory rate 18, temperature 99.3. Eusebio Mendoza MD/ PhD
--- NOTE | 2018-05-31 14:51 | CP.PCM.PCO ---
Physician Communication Note - Physician Communication Note Physician Communication Note: post permacath insertion today, to receive HD,awaiting [facility] with dialysis
--- NOTE | 2018-05-31 18:43 | PN ---
DATE: 05/31/2018 REASON FOR CONSULTATION AND FOLLOWUP: Cardiac evaluation, history of congestive heart failure, history of coronary disease, history of PTCA in circumflex, transferred from the skilled nursing due to lethargy. The patient was found to be with acute kidney injury, started on dialysis. The patient has history of DVT/PE, Eliquis was started. We will start low dose of losartan because the patient is already on dialysis. So, I need ESTEVAN and ARB inhibitor. We will start 25 mg with holding parameter. We will follow with you. This note is in addition to dictated by our nurse practitioner, Tiffanie Osborne. Thank you Dr. Florian for providing us the opportunity in taking care of the patient, Ismael Vasquez. Pamela Guerrero MD
[2018-05-31] MEDS: Albuterol-Ipratrop 3 mg / 0.5 (3 ml) UD IH PRN (19:48)
[2018-05-31] MEDS: Insulin Detemir 100 units/ml Vial (Levemir) SC SCH (21:25)
[2018-05-31] MEDS: Pantoprazole 40 mg EC Tab PO SCH (21:26)
--- NOTE | 2018-06-01 02:40 | PN ---
DATE: 05/31/2018 SUBJECTIVE: The patient is seen today. She is comfortable. No respiratory distress. No chest pain. She is more awake, but is still mildly lethargic, going for dialysis. PHYSICAL EXAMINATION: Today, VITAL SIGNS: Temperature is 98, heart rate 75, blood pressure 131/48, respirations 18. HEAD AND NECK: Normal. No JVD. No thyromegaly. CHEST: Clear bilaterally. CARDIAC: First sound and second sounds normal. ABDOMEN: Obese. Nontender. The midline incision is dry. The colostomy is intact on the right side. EXTREMITIES: Moderate edema above the ankle bilaterally. NEUROLOGIC: She moves all extremities. She is responding verbally, communicating, and nonfocal. LABORATORY STUDY: White count 8.3, hemoglobin 9.2, hematocrit 31.1, platelets 192. Her chemistry noted for sugar 125, BUN 40, creatinine 3.1. IMPRESSION AND PLAN: 1. Acute renal failure, acute allergic interstitial nephritis. Continue current therapy. We will decrease the Solu-Medrol gradually and continue hemodialysis for now. 2. Generalized weakness and deconditioning. The patient will need rehab unit where there is hemodialysis in, probably having some good place if insurance acceptance. 3. Hypertension, stable. Continue current medications. 4. Hypercholesterolemia. 5. Insulin-dependent diabetes. 6. Morbid obesity. 7. Obstructive sleep apnea. 8. Chronic obstructive pulmonary disease. 9. Anxiety. 10. Agitation. 11. Lethargy. We will put the patient Nuvigil, to be taken 6 o'clock in the morning. Continue current therapy. Follow up clinically. We will continue current treatments. Elroy Florian MD
[2018-06-01] MEDS: Morphine 2 mg/ml ISec IVP PRN ×2 (03:16→22:24)
--- NOTE | 2018-06-01 06:29 | CON ---
DATE: 05/31/2018 This is [facility]'s hospital visit on the telemetry floor. For Dr. Faye. SUBJECTIVE: The patient is a 61-year-old female seen lying, awake in bed, status post dialysis earlier today with the patient reported she requested a Tylenol for her discomfort and is waiting for it to be given; however, the patient is now transferred back from dialysis to the telemetry floor with the nurse unaware that this was requested. We were asked for it to be given now. Otherwise, she is more alert this visit and is in no acute distress . PHYSICAL EXAMINATION: VITAL SIGNS: Temperature 98.6, pulse 75, respirations 18, blood pressure 161/55, pulse ox of 95% with the BiPAP being given as per Dr. Ayala's recommendation. HEENT: Unremarkable. NECK: . LUNGS: Scattered rhonchi. Decreased breath sounds at the bases due to her body habitus. HEART: Regular rate. ABDOMEN: Obese, soft. Viable colostomy. Surgical dressing noted. EXTREMITIES: Chronic bilateral edema of her hands and feet. NEUROLOGIC: Aware and alert this visit. LABORATORY DATA: The patient's labs were done yesterday and will be repeated tomorrow with a nonfasting glucose today of 139 noted. ASSESSMENT: For this patient is that of acute renal failure, congestive heart failure, deep venous thrombosis, pulmonary embolism, on Eliquis, anemia of chronic disease, colostomy revision, revision of hernia, sleep apnea, pulmonary hypertension, morbid obesity, history of rectal cancer, recent myocardial infarction, deconditioning. PLAN: For this patient is to continue present medical regimen as per road consultant recommendations with consideration to have the patient out of bed eventually with ambulation and aggressive physiotherapy in the near future once it is safe. We will monitor clinically and with labs as indicated as the patient is now status post transfusion one unit of packed cells with good effect. This is a complex patient with a comprehensive medically necessary and appropriate visit carried out in excess of 20 minutes with the patient's questions answered to her satisfaction. Zuhair Herrera MD
--- NOTE | 2018-06-01 07:41 | CP.PCM.PN ---
Subjective - Date & Time of Evaluation Date of Evaluation: 06/01/18 Time of Evaluation: 06:25 - Subjective Subjective: Awake, Lying in bed, no distress, moaning Reason for consultation and follow up: Cardiac evaluation of history of congestive heart failure, [facility] to [facility], chronic kidney disease, on hemodialysis Seen and examined by me and Dr. Guerrero Objective - Vital Signs/Intake and Output Vital Signs (last 24 hours): Temp Pulse Resp BP Pulse Ox 98.2 F 115 H 19 184/65 H 95 06/01/18 06:00 06/01/18 06:14 06/01/18 06:00 06/01/18 06:14 06/01/18 06:00 Intake and Output: 06/01/18 06/01/18 06:59 18:59 Intake Total 120 Balance 120 - Medications Medications: Current Medications Acetaminophen (Tylenol 325mg Tab) 650 mg PO Q4H PRN PRN Reason: Pain, Mild (1-3) Acetylcysteine (Acetylcysteine 20%) 4 ml IH BIDRESP [facility] Last Admin: 05/31/18 19:48 Dose: 4 ml Albuterol/Ipratropium (Duoneb 3 Mg/0.5 Mg (3 Ml) Ud) 3 ml IH [id number] PRN PRN Reason: Shortness of Breath Last Admin: 05/31/18 19:48 Dose: 3 ml Apixaban (Eliquis) 2.5 mg PO BID [facility]; Protocol Last Admin: 05/31/18 18:28 Dose: 2.5 mg Arformoterol Tartrate (Brovana) 15 mcg IH [id number] [facility] Last Admin: 05/31/18 19:48 Dose: 15 mcg Armodafinil (Nuvigil 150 Mg Tab) 150 mg PO DAILY [facility] Last Admin: 06/01/18 05:42 Dose: 150 mg Budesonide (Pulmicort Respules) 0.5 mg IH [id number] [facility] Last Admin: 05/31/18 19:50 Dose: 0.5 mg Calcium Acetate (Phoslo) 667 mg PO WM [facility] Last Admin: 05/31/18 18:26 Dose: 667 mg Clonidine HCl (Catapres) 0.1 mg PO Q6 PRN PRN Reason: Other Last Admin: 06/01/18 06:14 Dose: 0.1 mg Clonidine HCl (Catapres-Tts3 0.3 Mg/24 Hr) 1 patch TD Q7D@1000 [facility] Last Admin: 05/29/18 15:40 Dose: 1 patch Darbepoetin Timothy (Aranesp) 150 mcg SC QWK [facility] Last Admin: 05/28/18 19:02 Dose: 150 mcg Docusate Sodium (Colace) 100 mg PO TID [facility] Last Admin: 05/31/18 18:28 Dose: 100 mg Hydralazine HCl (Apresoline) 100 mg PO TID [facility] Last Admin: 05/31/18 18:27 Dose: 100 mg Insulin Detemir (Levemir) 20 unit SC HS [facility] Last Admin: 05/31/18 21:25 Dose: 20 units Insulin Human Regular (Humulin R Low) 0 units SC ACHS [facility]; Protocol Last Admin: 05/31/18 22:00 Dose: Not Given Labetalol HCl (Trandate) 200 mg PO TID [facility] Last Admin: 05/31/18 18:30 Dose: 200 mg Lorazepam (Ativan) 0.5 mg IVP Q6H PRN; Protocol PRN Reason: Anxiety Last Admin: 06/01/18 04:00 Dose: 0.5 mg Losartan Potassium (Cozaar) 25 mg PO DAILY [facility] Last Admin: 05/31/18 10:49 Dose: 25 mg Magnesium Oxide (Mag-Ox) 400 mg PO BID [facility] Last Admin: 05/31/18 18:27 Dose: 400 mg Methylprednisolone (Solu-Medrol) 30 mg IVP DAILY [facility] Last Admin: 05/31/18 10:49 Dose: 30 mg Montelukast Sodium (Singulair) 10 mg PO HS [facility] Last Admin: 05/31/18 21:26 Dose: 10 mg Morphine Sulfate (Morphine) 2 mg IVP Q4H PRN PRN Reason: Pain, severe (8-10) Last Admin: 06/01/18 03:16 Dose: 2 mg Multivitamins (Thera Tab) 1 tab PO 0800 [facility] Last Admin: 05/31/18 10:48 Dose: 1 tab Pantoprazole Sodium (Protonix Ec Tab) 40 mg PO [facility] Last Admin: 05/31/18 21:26 Dose: 40 mg Risperidone (Risperdal Tab) 0.5 mg PO HS [facility]; Protocol Last Admin: 05/31/18 21:25 Dose: 0.5 mg Risperidone (Risperdal Tab) 0.5 mg PO DAILY [facility]; Protocol Saliva Substitute (Saliva Substitute) 0 ml PO 5XD PRN PRN Reason: DRY MOUTH Sodium Chloride ([place] Nasal [place]) 0 ml NS Q2H PRN PRN Reason: Nasal congestion - Labs Labs: 05/30/18 06:06 05/30/18 06:06 PT 12.5 SECONDS (9.4-12.5) 05/30/18 06:06 INR 1.09 05/30/18 06:06 APTT 27.1 Seconds (25.1-36.5) 05/30/18 06:06 - Constitutional Appears: Non-toxic, No Acute Distress - Head Exam Head Exam: NORMAL INSPECTION, NORMOCEPHALIC - Eye Exam Eye Exam: Normal appearance - ENT Exam ENT Exam: Mucous Membranes Dry - Respiratory Exam Respiratory Exam: Decreased Breath Sounds, NORMAL BREATHING PATTERN - Cardiovascular Exam Cardiovascular Exam: REGULAR RHYTHM, +S1, +S2 Additional comments: right chest port Left IJ permacath - GI/Abdominal Exam GI & Abdominal Exam: Soft, Normal Bowel Sounds Additional comments: colostomy - Exam Additional comments: ESRD on hemodialysis - Extremities Exam Additional comments: 3-4+edema - Neurological Exam Neurological Exam: Alert, Awake - Psychiatric Exam Psychiatric exam: Anxious - Skin Skin Exam: Normal Color, Warm Assessment and Plan - Assessment and Plan (Free Text) Assessment: A 62 year old morbidly obese female who got transferred to [facility] from [facility] due to altered mental status. Patient is known to service from previous multiple admissions. History of coronary artery disease with stent of circumflex,hypertension,hyperlipidemia,diabetes,sleep apnea,COPD, congestive heart failure, DVT/PE. History of bowel resection in the past with colostomy. She was admitted to [facility] due to small bowel obstruction and on 04/16/18 she had explor-lap and lysis of adhesions and ventral hernia repair with revision of colostomy (Dr. Mckeon).Postoperatively, patient had infection involving the m esh placed for the hernia repair and it was recommended that she undergo an additional procedure to have the mesh removed however patient refused surgical procedure. She was stablized and transferred to [facility]. Chest X ray showed severe cardiomegaly,moderate to severe pulmonary congestion.Not in respiratory distress, On nasal cannula 4l/min. Troponin 0.14/.15, denies chest pain, EKG- normal sinus rhythm, elevated troponin due to renal insuffiency. Will treat medically. Surgical follow up for abdominal wound. Cardiac status stable. Being followed up by Nephrology for worsening renal status. On hemodialysis. Shiley catheter changed to permacath left IJ .Discharge planning to [facility] with hemod ialysis. Plan: No distress, moaning Cardiac status stable Tachycardic with elevated blood pressure Give morning antihypertensive medications, will adjust accordingly if still elevated On hemodialysis On Hydralazine 100mg TID, Labetolol 200 mg TID, Losartan 25 mg daily, Eliquis 2.5 mg BID Catapres 0.3mg/24 hours every week,Solumedrol 30 mg daily, Continue current treatment Continue current medications Glucose controlled Discharge planning, [facility] with hemodialysis Will follow up Plan and treatment discussed with Dr. Guerrero
[2018-06-01] MEDS ORDERED: Glucagon Recombinant 1 mg Inj IV STA (08:35)
[2018-06-01] MEDS: Acetylcysteine 20% Inhal Soln (4ml) IH SCH ×2 (09:00→19:34)
[2018-06-01] MEDS: Arformoterol 15 mcg/2 ml Inh Sol IH SCH ×2 (09:00→19:34)
[2018-06-01] MEDS: Budesonide 0.5 mg/2 ml Inhal Susp UD IH SCH ×2 (09:00→19:34)
[2018-06-01] MEDS: Albuterol-Ipratrop 3 mg / 0.5 (3 ml) UD IH PRN (09:05)
[2018-06-01] MEDS ORDERED: Dextrose 50% SYRINGE Inj (50 ml) IVP STA (09:18)
[2018-06-01] MEDS ORDERED: Dextrose 50% SYRINGE Inj (50 ml) ONE (09:22)
[2018-06-01 09:59] LABS: BASO # 0.01 K/mm3 (0.0-2.0); BASO % 0.1 % (0.0-3.0); EOS # 0.1 (0.0-0.7); EOS % 0.4 % (1.5-5.0); GRAN # 9.13 (1.4-6.5); HEMOGLOBIN 8.6 g/dL (12.0-16.0); LYMPH # 1.3 (1.2-3.4); LYMPH % 10.7 % (22.0-35.0); MEAN CELL VOLUME 96.1 fl (80.0-105.0); MEAN CORPUSCULAR HEMOGLOBIN 27.9 pg (25.0-35.0); MEAN CORPUSCULAR HGB CONC 29.1 g/dl (31.0-37.0); MEAN PLATELET VOLUME 9.9 fl (7.0-11.0); MONO # 1.3 (0.1-0.6); MONO % 10.8 % (1.0-6.0); RBC 3.08 10^6/uL (3.5-6.1); RED CELL DISTRIBUTION WIDTH 19.8 % (11.5-14.5); WHITE BLOOD COUNT 11.7 10^3/uL (4.5-11.0)
[2018-06-01 10:19] LABS: ALB/GLOB RATIO 0.7 (1.1-1.8); ALBUMIN 2.5 g/dL (3.0-4.8); CALCIUM 7.7 mg/dL (8.4-10.5)
--- NOTE | 2018-06-01 10:32 | PN ---
DATE: 06/01/2018 SUBJECTIVE: The patient is in bed, in no acute distress. PHYSICAL EXAMINATION: VITAL SIGNS: Temperature is 98, blood pressure is 116/60 and heart rate of 110. HEENT: Unremarkable. NECK: Supple. LUNGS: Have decreased breath sounds. HEART: Normal S1, S2. ABDOMEN: Soft. LABORATORY DATA: White count of 8.3, hemoglobin of 9, platelets of 192. BUN 40, creatinine of 3.1. ASSESSMENT AND PLAN: A 62-year-old supermorbid obese female with a body mass index of 50, status post abdominal wall cellulitis and probable infected mesh with Celsa and Pseudomonas, renal failure, status post small bowel obstruction, ventral wall hernia, incarcerated hernia repair, chronic obstructive lung disease, hypertension, diabetic, history of unresectable rectal cancer, status post chemotherapy and radiation and a Port-A-Cath. Currently off of antibiotics. The patient is refusing removal of the mesh. She is at very high risk with poor prognosis. She is at risk for developing nosocomial infections. Lawrence Cheek MD
[2018-06-01] MEDS: Insulin Reg-LOW-Coverage SC SCH ×3 (10:41→21:48)
[2018-06-01] MEDS: Magnesium Oxide 400 mg Tab UD PO SCH ×2 (11:54→17:19)
[2018-06-01] MEDS: MethylPREDNISolone 40 mg Vial IVP SCH (11:54)
[2018-06-01] MEDS: Multivitamin Therapeutic Tab PO SCH (11:55)
--- NOTE | 2018-06-01 13:02 | PN ---
DATE: 06/01/2018 SEX OF THE PATIENT: Female. AGE OF THE PATIENT: 62. REASON FOR CONSULTATION AND FOLLOWUP: Cardiac evaluation and followup, history of congestive heart failure, history of CKD, started on dialysis, status post angioplasty, and history of DVT and PE. This note is an addition to a note dictated by nurse practitioner, Tiffanie Osborne. The patient has a Shiley catheter, started on dialysis, relatively stable. RECOMMENDATIONS: Since the patient already has dialysis started, we will adjust the blood pressure medications and put losartan to 100 mg from today, I started 25 and will follow with you. Continue rest of the medications. Continue clonidine. Continue dialysis. Overall, the patient's condition is critical. Long-term prognosis is guarded. I will put him on the holding parameter, hold for blood pressure less than 140 . This patient is getting some antihypertensive medications. We will follow with you. Thank you Dr. Florian for providing us the opportunity in taking care of your patient, Pedro Guevara. Pamela Guerrero MD
--- NOTE | 2018-06-01 13:28 | CP.PCM.PN ---
Subjective - Date & Time of Evaluation Date of Evaluation: 06/01/18 Time of Evaluation: 12:00 - Subjective Subjective: Nephrology Consultation Note: Assessment: critical SHELBI ? pre-renal/ATN versus AIN as also with peripheral eosinophilia and eosinolphiuria, started HD 05/28/18 pulmonary congestion with fluid overload. hypomag, hyperphosphatemia hyperkalemia SBO s/p ex lap with ? MESH infection AMS, delirium left adrenal adenoma, Rt renal hyperdense cyst chronic hypercapnic respi failure Diabetic chronic Kidney Disease (E11.22) Hypertensive Chronic Kidney Disease (I12.9) Chronic Kidney Disease (N18.3) Stage 3 with 2.4 gm proteinuria (R80.9) likely due to DM/HTN/Obesity Anemia Vit D def morbid obesity, CAD s/p stent, COPD/SUMMER, rectal ca s/p colostomy Plan seen on hd tolerating treatment continue antihypertensive Monitor Input/Output, daily weights and renal function with basic metabolic panel PRBC as needed d/w heme and okay to use KAVYA from heme perspective. on weekly aransep supplement lytes as needed d/w ID re; concerns for AIN, eosinophilia and antibiotics. had d/c abx started on steroids - will defer to pcp but given co-morbids would not rec prolonged course Adrenal adenoma work up with plasma renin/aldosterone, plasma metanephrine NEGATIVE. outpt 1 mg dexa suppression test repeat renal sono in 6 months to assess her Rt renal cyst Dose meds/antibiotics for reduced GFR. Avoid fleets enema/magnesium based laxatives. Avoid nephrotoxins/NSAIDs/ iodinated contrast (unless needed emergently) Glycemic control S: seen and examined seen on HD Physical Examination: General Appearance: comfortable, morbidly obese. not in acute respi distress remains confused. overall ill appearing on bipap Vitals reviewed and noted as below Head; Atraumatic, normocephalic EYES: Pupils are equal, round and reactive to light accommodation. Sclera is anicteric. Neck; supple no lymphadenopathy, no thyromegaly or bruit Lungs: improved respiratory rate/effort. Breath sounds bilateral equal, diminished at bases but overall limited exam due to her obesity Heart: normal rate. s1s2 normal. No rub or gallop. Extremities: 2+ edema, No varicose veins Neurological: Patient is confused Skin: Warm and dry. Normal turgor. No rash. Palpitation: Normal elasticity for age Abdomen: Abdomen is + colostomy. midline donita + Psych: deferred MSK: no joint tenderness or swelling. Digits and nails normal, no deformity : kidney or bladder not palpable. has linares left IJ PC + rt side criss cath Labs/imaging reviewed. Past medical history, past surgical history, family history, social history, allergy reviewed and noted as below Family hx: no hx of CKD. Rest non-contributory Objective - Vital Signs/Intake and Output Vital Signs (last 24 hours): Temp Pulse Resp BP Pulse Ox 98.2 F 87 19 184/65 H 95 06/01/18 06:00 06/01/18 10:00 06/01/18 06:00 06/01/18 06:14 06/01/18 06:00 Intake and Output: 06/01/18 06/01/18 06:59 18:59 Intake Total 120 Balance 120 - Medications Medications: Current Medications Acetaminophen (Tylenol 325mg Tab) 650 mg PO Q4H PRN PRN Reason: Pain, Mild (1-3) Acetylcysteine (Acetylcysteine 20%) 4 ml IH BIDRESP [facility] Last Admin: 06/01/18 09:00 Dose: 4 ml Albuterol/Ipratropium (Duoneb 3 Mg/0.5 Mg (3 Ml) Ud) 3 ml IH [id number] PRN PRN Reason: Shortness of Breath Last Admin: 06/01/18 09:05 Dose: 3 ml Apixaban (Eliquis) 2.5 mg PO BID [facility]; Protocol Last Admin: 06/01/18 11:54 Dose: Not Given Arformoterol Tartrate (Brovana) 15 mcg IH [id number] [facility] Last Admin: 06/01/18 09:00 Dose: 15 mcg Armodafinil (Nuvigil 150 Mg Tab) 150 mg PO DAILY [facility] Last Admin: 06/01/18 11:54 Dose: Not Given Budesonide (Pulmicort Respules) 0.5 mg IH [id number] [facility] Last Admin: 06/01/18 09:00 Dose: 0.5 mg Calcium Acetate (Phoslo) 667 mg PO WM [facility] Last Admin: 06/01/18 12:17 Dose: Not Given Clonidine HCl (Catapres) 0.1 mg PO Q6 PRN PRN Reason: Other Last Admin: 06/01/18 06:14 Dose: 0.1 mg Clonidine HCl (Catapres-Tts3 0.3 Mg/24 Hr) 1 patch TD Q7D@1000 [facility] Last Admin: 05/29/18 15:40 Dose: 1 patch Darbepoetin Timothy (Aranesp) 150 mcg SC QWK [facility] Last Admin: 05/28/18 19:02 Dose: 150 mcg Docusate Sodium (Colace) 100 mg PO TID [facility] Last Admin: 06/01/18 11:53 Dose: Not Given Hydralazine HCl (Apresoline) 100 mg PO TID [facility] Last Admin: 06/01/18 11:53 Dose: Not Given Insulin Detemir (Levemir) 20 unit SC [facility] Last Admin: 05/31/18 21:25 Dose: 20 units Insulin Human Regular (Humulin R Low) 0 units SC [facility]; Protocol Last Admin: 06/01/18 11:54 Dose: Not Given Labetalol HCl (Trandate) 200 mg PO TID [facility] Last Admin: 06/01/18 11:55 Dose: Not Given Lorazepam (Ativan) 0.5 mg IVP Q6H PRN; Protocol PRN Reason: Anxiety Last Admin: 06/01/18 04:00 Dose: 0.5 mg Losartan Potassium (Cozaar) 100 mg PO DAILY [facility] Last Admin: 06/01/18 11:53 Dose: Not Given Magnesium Oxide (Mag-Ox) 400 mg PO BID [facility] Last Admin: 06/01/18 11:54 Dose: Not Given Methylprednisolone (Solu-Medrol) 30 mg IVP DAILY [facility] Last Admin: 06/01/18 11:54 Dose: Not Given Montelukast Sodium (Singulair) 10 mg PO [facility] Last Admin: 05/31/18 21:26 Dose: 10 mg Morphine Sulfate (Morphine) 2 mg IVP Q4H PRN PRN Reason: Pain, severe (8-10) Last Admin: 06/01/18 03:16 Dose: 2 mg Multivitamins (Thera Tab) 1 tab PO 0800 [facility] Last Admin: 06/01/18 11:55 Dose: Not Given Pantoprazole Sodium (Protonix Ec Tab) 40 mg PO [facility] Last Admin: 05/31/18 21:26 Dose: 40 mg Risperidone (Risperdal Tab) 0.5 mg PO HS [facility]; Protocol Last Admin: 05/31/18 21:25 Dose: 0.5 mg Risperidone (Risperdal Tab) 0.5 mg PO DAILY [facility]; Protocol Last Admin: 06/01/18 11:54 Dose: Not Given Saliva Substitute (Saliva Substitute) 0 ml PO 5XD PRN PRN Reason: DRY MOUTH Sodium Chloride ([place] Nasal [place]) 0 ml NS Q2H PRN PRN Reason: Nasal congestion - Labs Labs: 06/01/18 09:45 06/01/18 09:45 PT 12.5 SECONDS (9.4-12.5) 05/30/18 06:06 INR 1.09 05/30/18 06:06 APTT 27.1 Seconds (25.1-36.5) 05/30/18 06:06
--- NOTE | 2018-06-01 15:08 | PN ---
DATE: 06/01/2018 PULMONARY PROGRESS NOTE REFERRING PHYSICIAN: Elroy Florian MD. SUBJECTIVE: The patient seen while undergoing hemodialysis, BiPAP in place, in no acute distress. No hemoptysis, hematuria, hematemesis. No diarrhea or swelling reported. PHYSICAL EXAMINATION: GENERAL: No acute distress. VITAL SIGNS: Blood pressure 173/62, pulse 116, temperature 98.2, oxygen saturation 95%. HEENT: Moist mucous membranes. Carotid airway. NECK: Supple. No JVD. LUNGS: Few rhonchi bilaterally. CARDIOVASCULAR: S1 and S2 audible. ABDOMEN: Soft. Colostomy with soft stool present. Surgical abdominal wound with dressing in place. EXTREMITIES: Bilateral lower extremity edema. Bilateral upper extremity edema. NEUROLOGIC: Awake, alert, verbal, follow commands. MEDICATIONS: Reviewed: Tylenol 650 mg p.o. every 4 hours p.r.n. for mild pain, Mucomyst 4 mL inhalation twice a day, DuoNeb via mouth inhalation every 6 hours p.r.n., Eliquis 2.5 mg p.o. twice a day, Brovana 15 mcg every 12 hours, Nuvigil 150 mg daily, Pulmicort 0.5 mg inhalation every 12 hours, calcium acetate 667 mg Sunday and Sunday, clonidine 0.1 mg every 6 hours p.r.n., clonidine patch 0.3 mg every 7 days, Aranesp 150 mcg weekly, Colace 100 mg three times a day, hydralazine 100 mg three times a day, Levemir 20 units subcu h.s., Humulin R a.c. and h.s. sliding scale, labetalol 200 mg three times a day, 0.5 mg IV push every 6 hours p.r.n., Cozaar 100 mg p.o. daily, magnesium oxide 400 mg twice a day, Solu-Medrol 30 mg IV push daily, Singulair 10 mg at bedtime, morphine sulfate 2 mg IV push every 4 hours p.r.n. severe pain, multivitamin one tab daily, Protonix 40 mg h.s., Risperdal 0.5 mg at bedtime, Risperdal 0.5 mg daily, saliva substitute five times a day p.r.n., [place] nasal spray every 2 hours p.r.n. LABORATORY DATA: Reviewed: WBC 11.7, RBC 3.08, hemoglobin 8.6, hematocrit 29.6, and platelets 160. Sodium 134, potassium 3.8, chloride 98, carbon dioxide 32, anion gap 8, BUN 22, creatinine 2.4, GFR 20, random glucose 142, calcium 7.7, total bilirubin 0.3, AST 31, ALT 17, alkaline phosphatase 295, total protein 6.1, albumin 2.5, globulin 3.6, albumin and globulin ratio is 0.7. IMPRESSION AND PLAN: Status post laparotomy with small bowel obstruction with occasional coughing and sleep apnea syndrome having ventilator syndrome, renal failure now on hemodialysis, history of pulmonary embolism, deep venous thrombosis, chronic lung disease, history of mass infection in the abdomen and pulmonary hypertension, morbid obesity, status post Perm-A-Cath placement for hemodialysis. Pulmonary point of view, continue bilevel positive airway pressure use at that time, may use during the day when asleep. Continue inhaled bronchodilators, sleep apnea precaution, head of bed elevated at 45 degrees. Gastric prophylaxis, deep venous thrombosis prophylaxis. Continue daytime stimulants. Nephrology followup. This patient is seen and examined with Dr. Ayala. Discussed assessment and plan as described above. Thank you for this consult. We will follow with you. Breezy Schafer APN Pamela Ayala MD MTDLaz
[2018-06-01 16:09] LABS: ARTERIAL BLOOD GAS HEMOGLOBIN 10.1 g/dL (11.7-17.4); ARTERIAL BLOOD GAS O2 CAPACITY 13.7 mL/dl (16-24); ARTERIAL BLOOD GAS O2 CONTENT 13.5 ML/dl (15-23); ARTERIAL BLOOD GAS O2 SAT 98.2 % (95-98); ARTERIAL BLOOD GAS PCO2 58 mm/Hg (35-45); ARTERIAL BLOOD GAS PH 7.35 (7.35-7.45); ARTERIAL BLOOD GAS TCO2 33.8 mmol.L (22-28)
--- NOTE | 2018-06-01 20:59 | PN ---
DATE: 06/01/2018 This is [place]'s hospital visit on the telemetry floor. For Dr. Faye. SUBJECTIVE: The patient is a 62-year-old female, who is seen resting in bed, BiPAP on, without complaint today with dialysis as per renal healthcare economics consultant Dr. Dawn with the patient having been transfused 1 unit of packed cells approximately 1 week prior with consideration for repeat transfusion as indicated versus Aranesp for her anemic indices. She is otherwise in no acute distress this visit. OBJECTIVE/PHYSICAL EXAMINATION: VITAL SIGNS: Temperature 98.2, pulse 87, respirations 19, blood pressure 173/62, pulse oximetry 95%, on BiPAP. HEENT: Unremarkable. NECK: Bull neck, which is supple. HEART: Regular rate. LUNGS: Scattered rhonchi. Decreased breath sounds at the bases due to body habitus. ABDOMEN: Obese, soft, with viable colostomy with surgical dressing. EXTREMITIES: Bilateral chronic edema of her feet and hands. NEUROLOGIC: Somnolent, but arousable. LABORATORY DATA: The patient's labs were done. White blood cell count 11.7, hemoglobin of 8.6, down from 9.2 two days prior, hematocrit of 29.6, platelet count of 160,000, with a metabolic panel showing a BUN of 22, creatinine of 2.4, which is slowly improving on dialysis. Her INR was done 2 days ago 1.09 with hepatitis B surface antigen reported as negative 2 days prior. ASSESSMENT: The assessment for this patient is that of chronic kidney disease, on dialysis with anemia of chronic kidney disease; congestive heart failure; deep venous thrombosis; pulmonary embolism, on Eliquis; colostomy revision recently; sleep apnea; pulmonary hypertension; morbid obesity; history of rectal cancer with colostomy; history of recent myocardial infarction; deconditioning; anxiety; diabetes mellitus. PLAN: The plan for this patient is to continue present medical regimen. We will monitor clinically with labs with considerations for Aranesp versus transfusion should her anemic indices be compromised. We will monitor clinically. Zuhair Herrera MD
[2018-06-01] MEDS: Pantoprazole 40 mg EC Tab PO SCH (22:24)
[2018-06-01] MEDS: Insulin Detemir 100 units/ml Vial (Levemir) SC SCH (22:24)
--- NOTE | 2018-06-02 02:21 | PN ---
DATE: 06/01/2018 SUBJECTIVE: The patient is sleepy. She received Ativan and morphine but couple of hours later, the patient started waking up and she complained of some back pain. She has no chest pain. No short of breath. Seems better actually. PHYSICAL EXAMINATION: As follows: VITAL SIGNS: Temperature is 98, heart rate is 87, blood pressure 160/56, saturating 95% to 96%. HEAD AND NECK: Normal. No JVD. No thyromegaly. CHEST: Clear bilateral. CARDIAC: First sound and second sounds normal. ABDOMEN: Soft. Midline incision, some little drains, little discharge coming but colostomy is intact on the right side. EXTREMITIES: There is edema above the ankle. NEUROLOGIC: She moves all extremities. LABORATORY STUDY: White count 11.7, hemoglobin 8.6, hematocrit 29.6, platelets 160. Chemistry: Sodium 134, potassium 3.8, chloride 98, bicarb 32, BUN 22, creatinine 2.4, blood sugar is 142, calcium 7.7. Alk phos 295, total protein 6.1, albumin 2.5. IMPRESSION AND PLAN: 1. Change in mental status, medication related. We will discontinue Ativan, and we will only give morphine as needed for pain. We will also give Nuvigil 150 mg a day 6 o'clock in the morning. 2. Chronic acute renal failure. She is on hemodialysis, doing better. 3. Coronary artery disease, right-sided pulmonary hypertension. Continue current therapy. 4. Obstructive sleep apnea, on bilevel positive airway pressure. Continue current therapy. 5. Chronic obstructive pulmonary disease, history of right-sided heart failure. Continue inhaled bronchodilators. 6. Insulin-dependent diabetes. Blood sugar runs below 100, but she is not eating. 7. Morbid obesity, hypertension, coronary artery disease, colostomy, history of hernia repair with possible wound infection, seems clinically stable. We will continue current therapy. We will follow up clinically. Continue current therapy. Elroy Florian MD
[2018-06-02] MEDS: Morphine 2 mg/ml ISec IVP PRN ×2 (06:33→22:01)
--- NOTE | 2018-06-02 07:02 | CP.PCM.PN ---
Subjective - Date & Time of Evaluation Date of Evaluation: 06/02/18 Time of Evaluation: 06:20 - Subjective Subjective: Awake, Lying in bed, no distress, feels okay Reason for consultation and follow up: Cardiac evaluation of history of congestive heart failure, transferred from [facility] due to lethargy, chronic kidney disease, on hemodialysis Seen and examined by me and Dr. Guerrero Objective - Vital Signs/Intake and Output Vital Signs (last 24 hours): Temp Pulse Resp BP Pulse Ox 98.5 F 106 H 18 149/54 L 97 06/02/18 05:41 06/02/18 05:49 06/02/18 05:41 06/02/18 05:41 06/02/18 05:41 Intake and Output: 06/01/18 06/02/18 18:59 06:59 Intake Total 60 0 Output Total 0 0 Balance 60 0 - Medications Medications: Current Medications Acetaminophen (Tylenol 325mg Tab) 650 mg PO Q4H PRN PRN Reason: Pain, Mild (1-3) Acetylcysteine (Acetylcysteine 20%) 4 ml IH BIDRESP [facility] Last Admin: 06/01/18 19:34 Dose: 4 ml Albuterol/Ipratropium (Duoneb 3 Mg/0.5 Mg (3 Ml) Ud) 3 ml IH [id number] PRN PRN Reason: Shortness of Breath Last Admin: 06/01/18 09:05 Dose: 3 ml Apixaban (Eliquis) 2.5 mg PO BID [facility]; Protocol Last Admin: 06/01/18 17:19 Dose: 2.5 mg Arformoterol Tartrate (Brovana) 15 mcg IH [id number] [facility] Last Admin: 06/01/18 19:34 Dose: 15 mcg Armodafinil (Nuvigil 150 Mg Tab) 150 mg PO DAILY [facility] Last Admin: 06/01/18 11:54 Dose: Not Given Budesonide (Pulmicort Respules) 0.5 mg IH [id number] [facility] Last Admin: 06/01/18 19:34 Dose: 0.5 mg Calcium Acetate (Phoslo) 667 mg PO WM [facility] Last Admin: 06/01/18 17:19 Dose: 667 mg Clonidine HCl (Catapres) 0.1 mg PO Q6 PRN PRN Reason: Other Last Admin: 06/01/18 06:14 Dose: 0.1 mg Clonidine HCl (Catapres-Tts3 0.3 Mg/24 Hr) 1 patch TD Q7D@1000 [facility] Last Admin: 05/29/18 15:40 Dose: 1 patch Darbepoetin Timothy (Aranesp) 150 mcg SC QWK [facility] Last Admin: 05/28/18 19:02 Dose: 150 mcg Docusate Sodium (Colace) 100 mg PO TID [facility] Last Admin: 06/01/18 17:19 Dose: 100 mg Hydralazine HCl (Apresoline) 100 mg PO TID [facility] Last Admin: 06/01/18 17:19 Dose: 100 mg Insulin Detemir (Levemir) 20 unit SC HS [facility] Last Admin: 06/01/18 22:24 Dose: 20 units Insulin Human Regular (Humulin R Low) 0 units SC ACHS [facility]; Protocol Last Admin: 06/01/18 21:48 Dose: Not Given Labetalol HCl (Trandate) 200 mg PO TID [facility] Last Admin: 06/01/18 17:19 Dose: 200 mg Losartan Potassium (Cozaar) 100 mg PO DAILY [facility] Last Admin: 06/01/18 11:53 Dose: Not Given Magnesium Oxide (Mag-Ox) 400 mg PO BID [facility] Last Admin: 06/01/18 17:19 Dose: 400 mg Methylprednisolone (Solu-Medrol) 20 mg IVP DAILY [facility] Montelukast Sodium (Singulair) 10 mg PO HS [facility] Last Admin: 06/01/18 22:24 Dose: 10 mg Morphine Sulfate (Morphine) 2 mg IVP Q4H PRN PRN Reason: Pain, severe (8-10) Last Admin: 06/02/18 06:33 Dose: 2 mg Multivitamins (Thera Tab) 1 tab PO 0800 [facility] Last Admin: 06/01/18 11:55 Dose: Not Given Pantoprazole Sodium (Protonix Ec Tab) 40 mg PO [facility] Last Admin: 06/01/18 22:24 Dose: 40 mg Risperidone (Risperdal Tab) 0.5 mg PO HS [facility]; Protocol Last Admin: 06/01/18 22:23 Dose: 0.5 mg Risperidone (Risperdal Tab) 0.5 mg PO DAILY [facility]; Protocol Last Admin: 06/01/18 11:54 Dose: Not Given Saliva Substitute (Saliva Substitute) 0 ml PO 5XD PRN PRN Reason: DRY MOUTH Sodium Chloride ([place] Nasal [place]) 0 ml NS Q2H PRN PRN Reason: Nasal congestion - Labs Labs: 06/01/18 09:45 06/01/18 09:45 PT 12.5 SECONDS (9.4-12.5) 05/30/18 06:06 INR 1.09 05/30/18 06:06 APTT 27.1 Seconds (25.1-36.5) 05/30/18 06:06 - Constitutional Appears: Non-toxic, No Acute Distress - Head Exam Head Exam: NORMAL INSPECTION, NORMOCEPHALIC - Eye Exam Eye Exam: Normal appearance Pupil Exam: NORMAL ACCOMODATION - ENT Exam ENT Exam: Mucous Membranes Dry - Respiratory Exam Respiratory Exam: Decreased Breath Sounds, NORMAL BREATHING PATTERN - Cardiovascular Exam Cardiovascular Exam: Tachycardia, +S1, +S2 Additional comments: Telemetry 100's NSR/ST right chest port left IJ permacath - GI/Abdominal Exam GI & Abdominal Exam: Soft, Normal Bowel Sounds Additional comments: colostomy - Exam Additional comments: ESRD on hemodialysis - Extremities Exam Additional comments: 3+edema - Neurological Exam Neurological Exam: Alert, Awake - Skin Skin Exam: Dry, Normal Color, Warm Assessment and Plan - Assessment and Plan (Free Text) Assessment: A 62 year old morbidly obese female who got transferred to [facility] from correction due to altered mental status. Patient is known to service from previous multiple admissions. History of coronary artery disease with stent of circumflex,hypertension,hyperlipidemia,diabetes,sleep apnea,COPD, congestive heart failure, DVT/PE. History of bowel resection in the past with colostomy. She was admitted to [facility] due to small bowel obstruction and on 04/16/18 she had explor-lap and lysis of adhesions and ventral hernia repair with revision of colostomy (Dr. Mckeon).Postoperatively, patient had infection involving the mesh placed for the hernia repair and it was recommended that she undergo an additional procedure to have the mesh removed however patient refused surgical procedure. She was stablized and transferred to [facility]. Chest X ray showed severe cardiomegaly,moderate to severe pulmonary congestion.Not in respiratory distress, On nasal cannula 4l/min. Troponin 0.14/.15, denies chest pain, EKG- normal sinus rhythm, elevated troponin due to renal insuffiency. Will treat medically. Surgical follow up for abdominal wound. Being followed up by Nephrology for worsening renal status. On hemodialysis. Shiley catheter changed to permacath left IJ . Discharge planning to [facility] with hemodialysis.Cardiac status stable. Plan: No distress, feels okay Cardiac status stable Controlled blood pressure On hemodialysis On Hydralazine 100mg TID, Labetolol 200 mg TID, Losartan 25 mg daily, Eliquis 2.5 mg BID Catapres 0.3mg/24 hours every week,Solumedrol 30 mg daily, Continue current treatment Continue current medications Asking Morphine off and on Discharge planning,[facility] with hemodialysis Will follow up Plan and treatment discussed with Dr. Guerrero
[2018-06-02] MEDS: Acetylcysteine 20% Inhal Soln (4ml) IH SCH (07:54)
[2018-06-02] MEDS: Budesonide 0.5 mg/2 ml Inhal Susp UD IH SCH ×2 (07:54→19:48)
[2018-06-02] MEDS: Arformoterol 15 mcg/2 ml Inh Sol IH SCH (07:54)
[2018-06-02] MEDS: Multivitamin Therapeutic Tab PO SCH (08:26)
--- NOTE | 2018-06-02 09:27 | CT ---
Date of service: 06/02/2018 PROCEDURE: CT HEAD WITHOUT CONTRAST. HISTORY: LETHARGIC AT TIMES COMPARISON: None available. TECHNIQUE: Axial computed tomography images were obtained through the head/brain without intravenous contrast. Radiation dose: Total exam DLP = 861.87 mGy-cm. This CT exam was performed using one or more of the following dose reduction techniques: Automated exposure control, adjustment of the mA and/or kV according to patient size, and/or use of iterative reconstruction technique. FINDINGS: HEMORRHAGE: No intracranial hemorrhage. BRAIN: No mass effect or edema. No atrophy or chronic microvascular ischemic changes. VENTRICLES: Unremarkable. No hydrocephalus. CALVARIUM: Unremarkable. PARANASAL SINUSES: Unremarkable as visualized. No significant inflammatory changes. MASTOID AIR CELLS: Bilateral mastoid air cell opacification. OTHER FINDINGS: None. IMPRESSION: No acute intracranial hemorrhage or infarction. Bilateral mastoid air cell opacification.
[2018-06-02] MEDS ORDERED: MethylPREDNISolone 40 mg Vial IVP SCH (10:00)
[2018-06-02] MEDS: Magnesium Oxide 400 mg Tab UD PO SCH ×2 (10:17→18:52)
[2018-06-02] MEDS: Insulin Reg-LOW-Coverage SC SCH ×5 (10:19→22:08)
--- NOTE | 2018-06-02 12:14 | PN ---
DATE: 06/02/2018 REASON FOR CONSULTATION AND FOLLOWUP: Cardiac evaluation, history of congestive heart failure, transferred from [facility], history of CKD, started on dialysis, history of coronary artery disease status post stent in circumflex. The patient feels okay, very weak and lethargic, eating very slowly, but no complaints of the chest pain. This note is in addition to dictated by our nurse practitioner, Tiffanie Osborne. RECOMMENDATION: Continue aggressive medical treatment surgical followup for abdominal wounds and possible discharge to the subacute rehab facility with dialysis, hemodialysis three times a week. We will follow with you. Thank you Dr. Florian, providing us the opportunity in taking care of the patient, Pedro Guevara. Pamela Guerrero MD MTDLaz
--- NOTE | 2018-06-02 12:25 | CP.PCM.PN ---
Subjective - Date & Time of Evaluation Date of Evaluation: 06/02/18 Time of Evaluation: 12:23 - Subjective Subjective: Nephrology Consultation Note: Assessment: critical SHELBI ? pre-renal/ATN versus AIN as also with peripheral eosinophilia and eosinolphiuria, started HD 05/28/18 pulmonary congestion with fluid overload. hypomag, hyperphosphatemia hyperkalemia SBO s/p ex lap with ? MESH infection AMS, delirium left adrenal adenoma, Rt renal hyperdense cyst chronic hypercapnic respi failure Diabetic chronic Kidney Disease (E11.22) Hypertensive Chronic Kidney Disease (I12.9) Chronic Kidney Disease (N18.3) Stage 3 with 2.4 gm proteinuria (R80.9) likely due to DM/HTN/Obesity Anemia Vit D def morbid obesity, CAD s/p stent, COPD/SUMMER, rectal ca s/p colostomy Plan HD tomorrow bp acceptable Monitor Input/Output, daily weights and renal function with basic metabolic panel PRBC as needed d/w heme and okay to use KAVYA from heme perspective. on weekly aransep recheck phos tomorrow on binder d/w ID re; concerns for AIN, eosinophilia and antibiotics. had d/c abx started on steroids - will defer to pcp but given co-morbids would not rec prolonged course Adrenal adenoma work up with plasma renin/aldosterone, plasma metanephrine NEGATIVE. outpt 1 mg dexa suppression test repeat renal sono in 6 months to assess her Rt renal cyst Dose meds/antibiotics for reduced GFR. Avoid fleets enema/magnesium based laxatives. Avoid nephrotoxins/NSAIDs/ iodinated contrast (unless needed emergently) Glycemic control S: seen and examined no n/v Physical Examination: General Appearance: comfortable, morbidly obese Vitals reviewed and noted as below Head; Atraumatic, normocephalic EYES: Pupils are equal, round and reactive to light accommodation. Sclera is anicteric. Neck; supple no lymphadenopathy, no thyromegaly or bruit Lungs: improved respiratory rate/effort. Breath sounds bilateral equal, diminished at bases but overall limited exam due to her obesity Heart: normal rate. s1s2 normal. No rub or gallop. Extremities: 2+ edema, No varicose veins Neurological: Patient is confused Skin: Warm and dry. Normal turgor. No rash. Palpitation: Normal elasticity for age Abdomen: Abdomen is + colostomy. Psych: deferred MSK: no joint tenderness or swelling. Digits and nails normal, no deformity : kidney or bladder not palpable. has linares left IJ PC + rt side criss cath Labs/imaging reviewed. Past medical history, past surgical history, family history, social history, allergy reviewed and noted as below Family hx: no hx of CKD. Rest non-contributory Objective - Vital Signs/Intake and Output Vital Signs (last 24 hours): Temp Pulse Resp BP Pulse Ox 98.5 F 85 18 154/66 H 97 06/02/18 05:41 06/02/18 10:17 06/02/18 05:41 06/02/18 10:17 06/02/18 05:41 Intake and Output: 06/02/18 06/02/18 06:59 18:59 Intake Total 0 Output Total 0 Balance 0 - Medications Medications: Current Medications Acetaminophen (Tylenol 325mg Tab) 650 mg PO Q4H PRN PRN Reason: Pain, Mild (1-3) Acetylcysteine (Acetylcysteine 20%) 4 ml IH BIDRESP JR Last Admin: 06/02/18 07:54 Dose: 4 ml Albuterol/Ipratropium (Duoneb 3 Mg/0.5 Mg (3 Ml) Ud) 3 ml IH [id number] PRN PRN Reason: Shortness of Breath Last Admin: 06/01/18 09:05 Dose: 3 ml Apixaban (Eliquis) 2.5 mg PO BID [facility]; Protocol Last Admin: 06/02/18 10:17 Dose: 2.5 mg Arformoterol Tartrate (Brovana) 15 mcg IH [id number] [facility] Last Admin: 06/02/18 07:54 Dose: 15 mcg Armodafinil (Nuvigil 150 Mg Tab) 150 mg PO DAILY [facility] Last Admin: 06/02/18 10:16 Dose: 150 mg Budesonide (Pulmicort Respules) 0.5 mg IH [id number] Last Admin: 06/02/18 07:54 Dose: 0.5 mg Calcium Acetate (Phoslo) 667 mg PO WM [facility] Last Admin: 06/02/18 08:26 Dose: 667 mg Clonidine HCl (Catapres) 0.1 mg PO Q6 PRN PRN Reason: Other Last Admin: 06/01/18 06:14 Dose: 0.1 mg Clonidine HCl (Catapres-Tts3 0.3 Mg/24 Hr) 1 patch TD Q7D@1000 [facility] Last Admin: 05/29/18 15:40 Dose: 1 patch Darbepoetin Timothy (Aranesp) 150 mcg SC QWK [facility] Last Admin: 05/28/18 19:02 Dose: 150 mcg Docusate Sodium (Colace) 100 mg PO TID [facility] Last Admin: 06/02/18 10:17 Dose: 100 mg Hydralazine HCl (Apresoline) 100 mg PO TID [facility] Last Admin: 06/02/18 10:17 Dose: 100 mg Insulin Detemir (Levemir) 20 unit SC HS [facility] Last Admin: 06/01/18 22:24 Dose: 20 units Insulin Human Regular (Humulin R Low) 0 units SC ACHS [facility]; Protocol Last Admin: 06/02/18 10:19 Dose: Not Given Labetalol HCl (Trandate) 200 mg PO TID [facility] Last Admin: 06/02/18 10:17 Dose: 200 mg Losartan Potassium (Cozaar) 100 mg PO DAILY [facility] Last Admin: 06/02/18 10:17 Dose: 100 mg Magnesium Oxide (Mag-Ox) 400 mg PO BID [facility] Last Admin: 06/02/18 10:17 Dose: 400 mg Methylprednisolone (Solu-Medrol) 20 mg IVP DAILY [facility] Last Admin: 06/02/18 10:16 Dose: 20 mg Montelukast Sodium (Singulair) 10 mg PO HS [facility] Last Admin: 06/01/18 22:24 Dose: 10 mg Morphine Sulfate (Morphine) 2 mg IVP Q4H PRN PRN Reason: Pain, severe (8-10) Last Admin: 06/02/18 06:33 Dose: 2 mg Multivitamins (Thera Tab) 1 tab PO 0800 [facility] Last Admin: 06/02/18 08:26 Dose: 1 tab Pantoprazole Sodium (Protonix Ec Tab) 40 mg PO HS [facility] Last Admin: 06/01/18 22:24 Dose: 40 mg Risperidone (Risperdal Tab) 0.5 mg PO HS [facility]; Protocol Last Admin: 06/01/18 22:23 Dose: 0.5 mg Risperidone (Risperdal Tab) 0.5 mg PO DAILY [facility]; Protocol Last Admin: 06/02/18 10:16 Dose: 0.5 mg Saliva Substitute (Saliva Substitute) 0 ml PO 5XD PRN PRN Reason: DRY MOUTH Sodium Chloride ([place] Nasal [place]) 0 ml NS Q2H PRN PRN Reason: Nasal congestion - Labs Labs: 06/01/18 09:45 06/01/18 09:45 PT 12.5 SECONDS (9.4-12.5) 05/30/18 06:06 INR 1.09 05/30/18 06:06 APTT 27.1 Seconds (25.1-36.5) 05/30/18 06:06
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
--- NOTE | 2018-06-02 16:24 | PN ---
DATE: 06/02/2018 SUBJECTIVE: The patient was seen earlier this morning. Overall, she is in poor condition. No fevers, no chills. PHYSICAL EXAMINATION: VITAL SIGNS: Temperature is 98, blood pressure is 149/50, respiratory rate of 18, heart rate of 80. HEENT: Unremarkable. NECK: Supple. LUNGS: Have decreased breath sounds. HEART: Normal S1, S2. ABDOMEN: Soft, nontender. No rebound or guarding. LABORATORY DATA: Examination reveals a white count of 11,700, hemoglobin of 8, BUN of 22, creatinine of 2.4. Blood cultures are negative.. The patient had a CAT scan of the head this morning, no acute findings. ASSESSMENT AND PLAN: This is a 62-year-old female with super morbid obesity, body mass index of 50, had abdominal wall cellulitis with a mesh infection with Celsa and Pseudomonas with renal failure, status post bowel obstruction, ventral hernia, incarcerated hernia repair in a patient with chronic obstructive lung disease, hypertension, diabetic, unresectable rectal cancer, who has had chemotherapy and radiation in a Port-A-Cath, currently off of antibiotics, afebrile, however, overall prognosis is quite poor for this patient. Dr. Florian's note is reviewed. The patient is at very high risk of developing nosocomial infections and patient with coronary artery disease and right-sided pulmonary hypertension, obstructive sleep apnea. Lawrence Cheek MD
--- NOTE | 2018-06-02 21:05 | PN ---
DATE: 06/02/2018 PULMONARY PROGRESS NOTE REFERRING PHYSICIAN: Elroy Florian MD SUBJECTIVE: She is lying in the bed. Night was unremarkable. Tolerated BiPAP well on nasal cannula. Sleepy but arousable. Cough is better. No nausea, no vomiting, no diarrhea. Mild abdominal pain. No leg swelling. OBJECTIVE: GENERAL: No acute distress. VITAL SIGNS: Temperature is 99, heart rate is 84, respiratory rate is 18, blood pressure 148/61, pulse ox 97% on nasal cannula. HEENT: Moist mucous membrane. Crowded airway. Mallampati score is 4. NECK: Supple. No JVD. LUNGS: Have a fair airflow with rhonchi. HEART: S1 and S2. ABDOMEN: Soft. Colostomy bag working okay. Incisions had dressing. EXTREMITIES: There is no edema. NEUROLOGICAL: Sleepy, arousable. Follows simple command. MEDICATIONS: She is on Mucomyst 20% inhaled twice a day, hydralazine 100 mg three times a day, Aranesp 150 mcg weekly, Brovana inhaled twice a day, clonidine 0.1 mg every 6 hours p.r.n., Catapres 0.3 mg weekly, Colace 100 mg three times a day, Cozaar 100 mg daily, DuoNeb every 6 hours p.r.n., Eliquis 2.5 mg twice a day, insulin coverage, Levemir 20 units subcu at bedtime, magnesium oxide 400 mg twice a day, morphine 2 mg every 4 hours p.r.n. for severe pain, Nuvigil 150 mg daily, PhosLo with the meals, Protonix 40 mg at bedtime, Pulmicort inhaled twice a day, Risperdal 0.5 mg at bedtime and 0.5 mg daily too, Saliva Substitute to the mouth every 4 hours five times a day, Singulair 10 mg at bedtime, Solu-Medrol 20 mg daily, multivitamins daily, labetalol 200 mg three times a day, Tylenol p.r.n. basis. LABORATORY DATA: Shows blood sugar this morning 84. No other changes in medication reported since yesterday. Repeat blood culture from 05/21/2018, so far there is no growth. Had a CT scan of the head done this morning which shows no acute intraparenchymal hemorrhage or infarct. Bilateral mastoid air cells opacification noted. IMPRESSION AND PLAN: History of laparotomy for small bowel obstruction, chronic lung disease, sleep apnea syndrome, hypoventilation syndrome, renal failure dialysis, history of pulmonary embolism, deep venous thrombosis, pulmonary hypertension, morbid obesity. Encourage BiPAP use. Keep head at 45 degrees. Will suggest decreasing sedatives. Continue daytime stimulant. Pressure ulcer precaution. Gastric and deep venous thrombosis prophylaxis. Out of bed to chair. Will benefit from therapy. Thank you, and we will follow with you. Pamela Ayala MD
[2018-06-02] MEDS: Pantoprazole 40 mg EC Tab PO SCH (21:24)
[2018-06-02] MEDS: Insulin Detemir 100 units/ml Vial (Levemir) SC SCH (22:03)
--- NOTE | 2018-06-02 23:11 | PN ---
DATE: 06/02/2018 SUBJECTIVE: A 62-year-old female. She is lying in bed, seems more comfortable. No respiratory distress. No chest pain. The patient is very weak, but she is moving her upper extremity better. Appetite is poor. There is no chest pain or short of breath. PHYSICAL EXAMINATION: VITAL SIGNS: As follows: Temperature 98.7, heart rate 88, blood pressure is 148/61, respirations 18. HEENT: Head and neck exam normal. No JVD. The left side has a ____ catheter. CHEST EXAM: Clear bilateral. CARDIAC: First sounds and second sounds are normal. ABDOMEN: Soft. Obese with midline incision that still has some tiny discharges coming out of it. Colostomy intact. EXTREMITIES: Less edema, much better. NEUROLOGIC: She is awake, alert, and oriented x3. Generally weak. CURRENT MEDICATIONS: Mucomyst; hydralazine 100 t.i.d.; Aranesp; Brovana; Catapres 0.1 every 6 hours p.r.n. and 0.3 patch once a week; Colace; Cozaar 100; DuoNeb; Eliquis 2.5 b.i.d.; insulin; Levemir 20 units subcu daily; magnesium oxide; morphine; Nuvigil 150; [place]; PhosLo; prednisone 10 p.o. daily; Pulmicort; Risperdal 0.5 mg at bedtime, 0.5 p.o. daily; saliva substitute; Singulair; multivitamins; labetalol 200 mg t.i.d.; and Tylenol 650 mg every 4 hours. LABORATORY STUDIES: , blood sugar 134. Last BUN 22, creatinine is 2.4. Her urine output is less than 100. IMPRESSION AND PLAN: 1. Acute kidney injury on top of chronic kidney disease from diabetic and hypertensive nephropathy. The patient currently is on renal replacement therapy. Seems doing okay with that, tolerating it well. 2. Insulin dependent diabetes, complicated. 3. History of rectal carcinoma with colostomy, in remission. 4. Status post hernia repair reduction with possible wound infections, still has some discharge. She is off antibiotics, afebrile. 5. Obstructive sleep apnea, chronic obstructive pulmonary disease. Continue BiPAP. Continue nebulizers treatment. 6. Hypertension, difficult to control. Continue current medications. 7. Agitation. Continue Risperdal, seems doing well with that. We will continue current therapy. The patient will need rehab unit with dialysis, probably at [facility], discussed with the patient, discussed with the son. Prognosis is guarded. We will see how she do. Elroy Florian MD
[2018-06-03 07:12] LABS: BASO # 0.02 K/mm3 (0.0-2.0); BASO % 0.2 % (0.0-3.0); EOS # 0.1 (0.0-0.7); EOS % 0.7 % (1.5-5.0); GRAN # 7.21 (1.4-6.5); GRAN % 74.3 % (50.0-68.0); HEMOGLOBIN 8.8 g/dL (12.0-16.0); LYMPH # 1.6 (1.2-3.4); LYMPH % 16.5 % (22.0-35.0); MEAN CELL VOLUME 96.6 fl (80.0-105.0); MEAN CORPUSCULAR HEMOGLOBIN 27.2 pg (25.0-35.0); MEAN CORPUSCULAR HGB CONC 28.2 g/dl (31.0-37.0); MEAN PLATELET VOLUME 10.3 fl (7.0-11.0); MONO # 0.8 (0.1-0.6); MONO % 8.3 % (1.0-6.0); RBC 3.23 10^6/uL (3.5-6.1); RED CELL DISTRIBUTION WIDTH 19.6 % (11.5-14.5); WHITE BLOOD COUNT 9.7 10^3/uL (4.5-11.0)
[2018-06-03] MEDS: Acetylcysteine 20% Inhal Soln (4ml) IH SCH ×2 (07:32→19:30)
[2018-06-03] MEDS: Budesonide 0.5 mg/2 ml Inhal Susp UD IH SCH ×2 (07:33→19:31)
[2018-06-03] MEDS: Arformoterol 15 mcg/2 ml Inh Sol IH SCH ×2 (07:33→19:30)
[2018-06-03 07:36] LABS: ALB/GLOB RATIO 0.7 (1.1-1.8); ALBUMIN 2.6 g/dL (3.0-4.8); CALCIUM 8.3 mg/dL (8.4-10.5)
[2018-06-03] MEDS: Insulin Reg-LOW-Coverage SC SCH ×4 (07:42→22:36)
--- NOTE | 2018-06-03 09:01 | CP.PCM.PN ---
Subjective - Date & Time of Evaluation Date of Evaluation: 06/03/18 Time of Evaluation: 09:00 - Subjective Subjective: Nephrology Consultation Note: Assessment: critical SHELBI ? pre-renal/ATN versus AIN as also with peripheral eosinophilia and eosinolphiuria, started HD 05/28/18 pulmonary congestion with fluid overload. hypomag, hyperphosphatemia hyperkalemia SBO s/p ex lap with ? MESH infection AMS, delirium left adrenal adenoma, Rt renal hyperdense cyst chronic hypercapnic respi failure Diabetic chronic Kidney Disease (E11.22) Hypertensive Chronic Kidney Disease (I12.9) Chronic Kidney Disease (N18.3) Stage 3 with 2.4 gm proteinuria (R80.9) likely due to DM/HTN/Obesity Anemia Vit D def morbid obesity, CAD s/p stent, COPD/SUMMER, rectal ca s/p colostomy Plan Isoluated UF today, goal 2kg , and regular schedule TTS tomorrow bp acceptable Monitor Input/Output, daily weights and renal function with basic metabolic panel PRBC as needed d/w heme and okay to use KAVYA from heme perspective. on weekly aransep recheck phos tomorrow on binder d/w ID re; concerns for AIN, eosinophilia and antibiotics. had d/c abx started on steroids - will defer to pcp but given co-morbids would not rec prolonged course Adrenal adenoma work up with plasma renin/aldosterone, plasma metanephrine NEGATIVE. outpt 1 mg dexa suppression test repeat renal sono in 6 months to assess her Rt renal cyst Dose meds/antibiotics for reduced GFR. Avoid fleets enema/magnesium based laxatives. Avoid nephrotoxins/NSAIDs/ iodinated contrast (unless needed emergently) Glycemic control S: seen and examined no n/v Physical Examination: General Appearance: comfortable, morbidly obese Vitals reviewed and noted as below Head; Atraumatic, normocephalic EYES: Pupils are equal, round and reactive to light accommodation. Sclera is an icteric. Neck; supple no lymphadenopathy, no thyromegaly or bruit Lungs: improved respiratory rate/effort. reduced bs at basees Heart: normal rate. s1s2 normal. No rub or gallop. Extremities: 2+ edema, No varicose veins Neurological: Patient is confused Skin: Warm and dry. Normal turgor. No rash. Palpitation: Normal elasticity for age Abdomen: Abdomen is + colostomy. Psych: deferred MSK: no joint tenderness or swelling. Digits and nails normal, no deformity : kidney or bladder not palpable. has linares left IJ PC + rt side criss cath Labs/imaging reviewed. Past medical history, past surgical history, family history, social history, allergy reviewed and noted as below Family hx: no hx of CKD. Rest non-contributory Objective - Vital Signs/Intake and Output Vital Signs (last 24 hours): Temp Pulse Resp BP Pulse Ox 97.9 F 79 19 132/74 97 06/03/18 05:44 06/03/18 05:44 06/03/18 05:44 06/03/18 05:44 06/03/18 05:44 Intake and Output: 06/03/18 06/03/18 06:59 18:59 Intake Total 2441 Output Total 600 Balance 1841 - Medications Medications: Current Medications Acetaminophen (Tylenol 325mg Tab) 650 mg PO Q4H PRN PRN Reason: Pain, Mild (1-3) Acetylcysteine (Acetylcysteine 20%) 4 ml IH BIDRESP JR Last Admin: 06/03/18 07:32 Dose: 4 ml Albuterol/Ipratropium (Duoneb 3 Mg/0.5 Mg (3 Ml) Ud) 3 ml IH [id number] PRN PRN Reason: Shortness of Breath Last Admin: 06/01/18 09:05 Dose: 3 ml Apixaban (Eliquis) 2.5 mg PO BID JR; Protocol Last Admin: 06/02/18 18:52 Dose: 2.5 mg Arformoterol Tartrate (Brovana) 15 mcg IH [id number] JR Last Admin: 06/03/18 07:33 Dose: 15 mcg Armodafinil (Nuvigil 150 Mg Tab) 150 mg PO DAILY [facility] Last Admin: 06/02/18 10:16 Dose: 150 mg Budesonide (Pulmicort Respules) 0.5 mg IH [id number] JR Last Admin: 06/03/18 07:33 Dose: 0.5 mg Calcium Acetate (Phoslo) 667 mg PO WM JR Last Admin: 06/02/18 17:30 Dose: 667 mg Clonidine HCl (Catapres) 0.1 mg PO Q6 PRN PRN Reason: Other Last Admin: 06/01/18 06:14 Dose: 0.1 mg Clonidine HCl (Catapres-Tts3 0.3 Mg/24 Hr) 1 patch TD Q7D@1000 [facility] Last Admin: 05/29/18 15:40 Dose: 1 patch Darbepoetin Timothy (Aranesp) 150 mcg SC QWK [facility] Last Admin: 05/28/18 19:02 Dose: 150 mcg Docusate Sodium (Colace) 100 mg PO TID [facility] Last Admin: 06/02/18 18:52 Dose: 100 mg Hydralazine HCl (Apresoline) 100 mg PO TID [facility] Last Admin: 06/02/18 18:48 Dose: 100 mg Insulin Detemir (Levemir) 20 unit SC HS [facility] Last Admin: 06/02/18 22:03 Dose: 20 units Insulin Human Regular (Humulin R Low) 0 units SC ACHS [facility]; Protocol Last Admin: 06/03/18 07:42 Dose: Not Given Labetalol HCl (Trandate) 200 mg PO TID [facility] Last Admin: 06/02/18 18:49 Dose: 200 mg Losartan Potassium (Cozaar) 100 mg PO DAILY [facility] Last Admin: 06/02/18 10:17 Dose: 100 mg Magnesium Oxide (Mag-Ox) 400 mg PO BID [facility] Last Admin: 06/02/18 18:52 Dose: 400 mg Montelukast Sodium (Singulair) 10 mg PO HS [facility] Last Admin: 06/02/18 21:23 Dose: 10 mg Morphine Sulfate (Morphine) 1 mg IVP Q4H PRN PRN Reason: Pain, severe (8-10) Last Admin: 06/02/18 22:01 Dose: 1 mg Multivitamins (Thera Tab) 1 tab PO 0800 [facility] Last Admin: 06/02/18 08:26 Dose: 1 tab Pantoprazole Sodium (Protonix Ec Tab) 40 mg PO HS [facility] Last Admin: 06/02/18 21:24 Dose: 40 mg Prednisone (Prednisone Tab) 10 mg PO DAILY [facility] Risperidone (Risperdal Tab) 0.5 mg PO HS [facility]; Protocol Last Admin: 06/02/18 21:24 Dose: 0.5 mg Risperidone (Risperdal Tab) 0.5 mg PO DAILY [facility]; Protocol Last Admin: 06/02/18 10:16 Dose: 0.5 mg Saliva Substitute (Saliva Substitute) 0 ml PO 5XD PRN PRN Reason: DRY MOUTH Sodium Chloride ([place] Nasal [place]) 0 ml NS Q2H PRN PRN Reason: Nasal congestion - Labs Labs: 06/03/18 06:30 06/03/18 06:30 PT 12.5 SECONDS (9.4-12.5) 05/30/18 06:06 INR 1.09 05/30/18 06:06 APTT 27.1 Seconds (25.1-36.5) 05/30/18 06:06
[2018-06-03] MEDS: Magnesium Oxide 400 mg Tab UD PO SCH ×2 (10:26→18:25)
[2018-06-03] MEDS: Multivitamin Therapeutic Tab PO SCH (10:27)
--- NOTE | 2018-06-03 11:26 | CP.PCM.PCO ---
Physician Communication Note - Physician Communication Note Physician Communication Note: Pt.observed resting,awaiting [facility] w/dialysis,medically cleared for DC
--- NOTE | 2018-06-03 11:29 | PN ---
DATE: 06/03/2018 REFERRING PHYSICIAN: Elroy Florian MD SUBJECTIVE: The patient is lying in bed, asleep, but arousable. Reports wearing BiPAP last night. No headache, rhinitis, cough, shortness of breath, chest pain, nausea, vomiting, diarrhea, leg pain reported. Mild abdominal pain reported. OBJECTIVE: GENERAL: No acute distress. VITAL SIGNS: Blood pressure 132/74, pulse 79, temperature 97.9 and oxygen saturation 97%. HEENT: Moist mucous membranes. Crowded airway. Mallampati score of 4. NECK: Supple. No JVD. LUNGS: Fair airflow bilaterally. Few rhonchi. CARDIOVASCULAR: S1 and S2 audible. ABDOMEN: Soft, colostomy bag present to abdomen with soft stool. Surgical abdominal wound with dressing in place. EXTREMITIES: Bilateral lower extremity edema. NEUROLOGIC: Sleepy, but arousable. Verbal and follows commands. MEDICATIONS: Reviewed; Tylenol 650 mg every 4 hours p.r.n., Mucomyst 4 mL inhalation twice a day, DuoNeb 3 mL inhalation every 6 hours p.r.n., Eliquis 2.5 mg twice a day, Brovana 15 mcg every 12 hours, Nuvigil 150 mg daily, Pulmicort 0.5 mg inhalation every 12 hours, calcium acetate 667 mg Wednesdays and Mondays, clonidine 0.1 mg every 6 hours p.r.n., clonidine patch 0.3 mg every 7 days, Aranesp 150 mcg weekly, Colace 100 mg three times a day, hydralazine 100 mg three times a day, Levemir 20 units subcutaneously at bedtime, Humulin R sliding scale, labetalol 200 mg three times a day, potassium 100 mg daily, magnesium oxide 400 mg twice a day, Singulair 10 mg at bedtime, morphine sulfate 1 mg IV push every 4 hours p.r.n. multivitamin one tab daily, Protonix 40 mg at bedtime, prednisone 10 mg daily, Risperdal 0.5 mg daily, saliva substitute five times a day p.r.n., [place] nasal spray every 2 hours p.r.n. LABORATORY DATA: Reviewed; WBC 9.7, RBC 3.23, hemoglobin 8.8, hematocrit 31.2 and platelets 187. Sodium 135, potassium 3.9, chloride 98, carbon dioxide 34, anion gap 7, BUN 22, creatinine 2.4, GFR 20, random glucose 70, calcium 8.3 and phosphorus 3.7. Total bilirubin 0.3, AST 38, ALT 15, alkaline phosphatase 293, total protein 6.5, albumin 2.6, globulin 3.9 and albumin-globulin ratio of 0.7. IMPRESSION AND PLAN: History of laparotomy for small bowel obstruction, chronic lung disease, sleep apnea syndrome, hypoventilation syndrome, renal failure currently requiring hemodialysis, history of pulmonary embolism, deep venous thrombosis, pulmonary hypertension, morbid obesity. Pulmonary point of view, continue to encourage BiPAP use at bedtime, sleep apnea precaution, keep head of bed elevated at 45 degrees, continue daytime stimulant, pressure ulcer precaution, gastric and deep venous thrombosis prophylaxis, would benefit from physical therapy. Out of bed to chair. This patient was seen and examined with Dr. Ayala. Discussed assessment and plan as described above. Thank you for this consult and we will follow with you. Breezy Schafer APN Pamela Ayala MD [email or web address]
[2018-06-03] MEDS: Morphine 2 mg/ml ISec IVP PRN (12:56)
--- NOTE | 2018-06-03 13:20 | CP.PCM.PN ---
Subjective - Date & Time of Evaluation Date of Evaluation: 06/03/18 Time of Evaluation: 11:20 - Subjective Subjective: Non-toxic, no fevers. Objective - Vital Signs/Intake and Output Vital Signs (last 24 hours): Temp Pulse Resp BP Pulse Ox 97.9 F 79 19 132/74 97 06/03/18 05:44 06/03/18 05:44 06/03/18 05:44 06/03/18 05:44 06/03/18 05:44 Intake and Output: 06/03/18 06/03/18 06:59 18:59 Intake Total 2441 Output Total 600 Balance 1841 - Medications Medications: Current Medications Acetaminophen (Tylenol 325mg Tab) 650 mg PO Q4H PRN PRN Reason: Pain, Mild (1-3) Acetylcysteine (Acetylcysteine 20%) 4 ml IH BIDRESP [facility] Last Admin: 06/03/18 07:32 Dose: 4 ml Albuterol/Ipratropium (Duoneb 3 Mg/0.5 Mg (3 Ml) Ud) 3 ml IH [id number] PRN PRN Reason: Shortness of Breath Last Admin: 06/01/18 09:05 Dose: 3 ml Apixaban (Eliquis) 2.5 mg PO BID [facility]; Protocol Last Admin: 06/02/18 18:52 Dose: 2.5 mg Arformoterol Tartrate (Brovana) 15 mcg IH [id number] [facility] Last Admin: 06/03/18 07:33 Dose: 15 mcg Armodafinil (Nuvigil 150 Mg Tab) 150 mg PO DAILY [facility] Last Admin: 06/02/18 10:16 Dose: 150 mg Budesonide (Pulmicort Respules) 0.5 mg IH [id number] [facility] Last Admin: 06/03/18 07:33 Dose: 0.5 mg Calcium Acetate (Phoslo) 667 mg PO WM [facility] Last Admin: 06/02/18 17:30 Dose: 667 mg Clonidine HCl (Catapres) 0.1 mg PO Q6 PRN PRN Reason: Other Last Admin: 06/01/18 06:14 Dose: 0.1 mg Clonidine HCl (Catapres-Tts3 0.3 Mg/24 Hr) 1 patch TD Q7D@1000 [facility] Last Admin: 05/29/18 15:40 Dose: 1 patch Darbepoetin Timothy (Aranesp) 150 mcg SC QWK [facility] Last Admin: 05/28/18 19:02 Dose: 150 mcg Docusate Sodium (Colace) 100 mg PO TID [facility] Last Admin: 06/02/18 18:52 Dose: 100 mg Hydralazine HCl (Apresoline) 100 mg PO TID [facility] Last Admin: 06/02/18 18:48 Dose: 100 mg Insulin Detemir (Levemir) 20 unit SC [facility] Last Admin: 06/02/18 22:03 Dose: 20 units Insulin Human Regular (Humulin R Low) 0 units SC ACHS [facility]; Protocol Last Admin: 06/03/18 07:42 Dose: Not Given Labetalol HCl (Trandate) 200 mg PO TID [facility] Last Admin: 06/02/18 18:49 Dose: 200 mg Losartan Potassium (Cozaar) 100 mg PO DAILY [facility] Last Admin: 06/02/18 10:17 Dose: 100 mg Magnesium Oxide (Mag-Ox) 400 mg PO BID [facility] Last Admin: 06/02/18 18:52 Dose: 400 mg Montelukast Sodium (Singulair) 10 mg PO [facility] Last Admin: 06/02/18 21:23 Dose: 10 mg Morphine Sulfate (Morphine) 1 mg IVP Q4H PRN PRN Reason: Pain, severe (8-10) Last Admin: 06/02/18 22:01 Dose: 1 mg Multivitamins (Thera Tab) 1 tab PO 0800 [facility] Last Admin: 06/02/18 08:26 Dose: 1 tab Pantoprazole Sodium (Protonix Ec Tab) 40 mg PO [facility] Last Admin: 06/02/18 21:24 Dose: 40 mg Prednisone (Prednisone Tab) 10 mg PO DAILY [facility] Risperidone (Risperdal Tab) 0.5 mg PO HS [facility]; Protocol Last Admin: 06/02/18 21:24 Dose: 0.5 mg Risperidone (Risperdal Tab) 0.5 mg PO DAILY [facility]; Protocol Last Admin: 06/02/18 10:16 Dose: 0.5 mg Saliva Substitute (Saliva Substitute) 0 ml PO 5XD PRN PRN Reason: DRY MOUTH Sodium Chloride ([place] Nasal [place]) 0 ml NS Q2H PRN PRN Reason: Nasal congestion - Labs Labs: 06/03/18 06:30 06/03/18 06:30 PT 12.5 SECONDS (9.4-12.5) 05/30/18 06:06 INR 1.09 05/30/18 06:06 APTT 27.1 Seconds (25.1-36.5) 05/30/18 06:06 - Constitutional Appears: Chronically Ill - Head Exam Head Exam: NORMAL INSPECTION - Respiratory Exam Respiratory Exam: Decreased Breath Sounds - Cardiovascular Exam Cardiovascular Exam: +S1, +S2 - GI/Abdominal Exam GI & Abdominal Exam: Soft. absent: Tenderness Assessment and Plan - Assessment and Plan (Free Text) Plan: Assessment S/P treatment of abdominal wall cellulitis with probable infected abdominal mesh; most recent cultures from 05/03/2018 showed Pseudomonas and C. famata - eosinophilia R/O due to meds acute renal failure S/P HD catheter placement S/P small bowel obstruction in this patient with ventral wall hernia, S/P ventral incarcerated hernia repair, adhesiolysis and revision of colostomy S/P acute coronary syndrome with NSTEMI COPD history of VRE UTI history of severe sepsis secondary to left medial thigh abscess, growing Proteus, S/P incision and drainage DM HTN CAD Unresectable rectal cancer S/P chemotherapy and radiation therapy S/P colostomy S/P Port-a-cath placement morbid obesity with BMI 50 obstructive sleep apnea history of pulmonary embolism S/P IVC filter placement Plan we have discontinued Cefepime and Diflucan because of the eosinophilia and will continue to monitor off antibiotics since she is at risk for nosocomial infections; apparently the patient has been refusing to have the mesh removed as per other doctors - discussed with Dr. Florian previously Renal following and managing acute renal failure and is now on dialysis overall prognosis is poor
--- NOTE | 2018-06-03 14:22 | PN ---
DATE: 06/03/2018 This is [facility]'s hospital visit on the telemetry floor. For Dr. Faye. SUBJECTIVE: The patient is a 62-year-old female seen sitting up in bed, lethargic, but arousable. With her labs been monitored. Now been treated for acute renal failure on dialysis with good effect. She is known to suffer from chronic kidney disease, anemia of chronic disease, DVT, PE, colostomy with revision, remote history of rectal cancer with the colostomy at that time. She has not been out of bed with recommendations to do so as per physical therapy and her primary doctor. OBJECTIVE/PHYSICAL EXAMINATION: VITAL SIGNS: Temperature 97.9, pulse 73, respirations 19, blood pressure 132/74, with the pulse ox 97%. HEENT: Unremarkable. NECK: Supple. HEART: Regular rate. LUNGS: Decreased breath sounds at the bases. ABDOMEN: Obese, soft, with viable colostomy with dressings noted. EXTREMITIES: Chronic +1 edema of the feet and hands. NEUROLOGIC: Lethargic, but arousable. LABORATORY DATA: The patient's labs were done; white blood cell count 9.7, hemoglobin 8.8, hematocrit of 31.2, platelet count 187, 000 with the metabolic panel showing a BUN of 22, creatinine 2.4, alk phos 283. ASSESSMENT: The assessment for this patient is that of chronic kidney disease with dialysis begun on 05/28/2018, congestive heart failure, status post colostomy revision with hernia repair, questionable mesh infection, hypertension, deep venous thrombosis, pulmonary embolism, sleep apnea, history of rectal cancer with colostomy, history of recent Myocardial infarction, deconditioning, anxiety, diabetes mellitus and altered mental status with confusion. PLAN: The plan for this patient is to continue present medical regimen with Aranesp as per Dr. Dawn her still photographer recommended once a week. We will monitor clinically with labs. With the patient having been transfused on the 05/24/2018. This is a complex patient with a comprehensive medically necessary and appropriate visit carried out in excess of 20 minutes with the patient's questions answered to her satisfaction. Zuhair Herrera MD [facility] # [id number]
--- NOTE | 2018-06-03 17:00 | PN ---
DATE: 06/03/2018 REQUESTING PHYSICIAN: Elroy Florian MD REASON FOR CONSULTATION: Followup, cardiac evaluation, history of congestive heart failure, transferred from assisted with lethargy, history of CKD, started on dialysis, history of coronary artery disease status post stent. SUBJECTIVE: The patient denied any chest pain, shortness of breath, or any palpitation. PHYSICAL EXAMINATION: GENERAL: Not in apparent distress, lying flat on the bed, dialysis catheter on the left side. VITAL SIGNS: Temperature is afebrile, heart rate 70, and blood pressure 132/74. HEENT: PERRLA, intact. NECK: Supple. No carotid bruit or thyromegaly. CHEST: Clear to auscultation. HEART: S1 and S2, regular. ABDOMEN: Soft. EXTREMITIES: Clubbing and cyanosis negative. Dialysis catheter on the left side of the chest. LABORATORY DATA: Blood workup as follows: WBC 9.7, hemoglobin 8.8, hematocrit 31.2, and platelet count 187. Chemistry showed sodium 135, potassium 3.9, chloride 98, carbon dioxide 34, anion gap of 7, BUN 22, and creatinine 2.4. IMPRESSION AND PLAN: A 62-year-old morbidly obese female with past medical history of coronary artery disease in the past, history of circumflex, history of anorectal cancer, status post colostomy, history of recently small bowel obstruction, history of abdominal surgery, history of wound in the anterior abdominal wall, acute kidney injury now on dialysis, chest pain, shortness of breath, or any palpitation. RECOMMENDATION: Continue dialysis as per fabrication engineer. Continue losartan started because the patient is on dialysis. Continue clonidine. Continue hydralazine. Continue beta-joseph. We will follow with you. Thank you Dr. Florian for providing the opportunity in taking care of the patient, Ismael Vasquez. We will follow with you. Pamela Guerrero MD
[2018-06-03] MEDS: Pantoprazole 40 mg EC Tab PO SCH (21:06)
[2018-06-03] MEDS: Insulin Detemir 100 units/ml Vial (Levemir) SC SCH (22:37)
[2018-06-04] MEDS: Arformoterol 15 mcg/2 ml Inh Sol IH SCH ×2 (07:20→19:59)
[2018-06-04] MEDS: Budesonide 0.5 mg/2 ml Inhal Susp UD IH SCH ×2 (07:20→20:00)
[2018-06-04] MEDS: Acetylcysteine 20% Inhal Soln (4ml) IH SCH ×2 (07:20→19:59)
--- NOTE | 2018-06-04 07:37 | CP.PCM.PN ---
Subjective - Date & Time of Evaluation Date of Evaluation: 06/04/18 Time of Evaluation: 06:25 - Subjective Subjective: Awake, Lying in bed, no distress Reason for consultation and follow up: Cardiac evaluation of history of congestive heart failure, transferred from [facility] due to lethargy, chronic kidney disease, on hemodialysis Seen and examined by me and Dr. Guerrero Objective - Vital Signs/Intake and Output Vital Signs (last 24 hours): Temp Pulse Resp BP Pulse Ox 97.7 F 71 19 129/44 L 98 06/04/18 06:00 06/04/18 06:00 06/04/18 06:00 06/04/18 06:00 06/04/18 06:00 Intake and Output: 06/04/18 06/04/18 06:59 18:59 Intake Total 120 Output Total 0 Balance 120 - Medications Medications: Current Medications Acetaminophen (Tylenol 325mg Tab) 650 mg PO Q4H PRN PRN Reason: Pain, Mild (1-3) Last Admin: 06/03/18 18:25 Dose: 650 mg Acetylcysteine (Acetylcysteine 20%) 4 ml IH BIDRESP [facility] Last Admin: 06/03/18 19:30 Dose: 4 ml Albuterol/Ipratropium (Duoneb 3 Mg/0.5 Mg (3 Ml) Ud) 3 ml IH [id number] PRN PRN Reason: Shortness of Breath Last Admin: 06/01/18 09:05 Dose: 3 ml Apixaban (Eliquis) 2.5 mg PO BID [facility]; Protocol Last Admin: 06/03/18 18:25 Dose: 2.5 mg Arformoterol Tartrate (Brovana) 15 mcg IH [id number] [facility] Last Admin: 06/04/18 07:20 Dose: 15 mcg Armodafinil (Nuvigil 150 Mg Tab) 150 mg PO DAILY [facility] Last Admin: 06/03/18 10:26 Dose: 150 mg Budesonide (Pulmicort Respules) 0.5 mg IH [id number] [facility] Last Admin: 06/03/18 19:31 Dose: 0.5 mg Calcium Acetate (Phoslo) 667 mg PO WM [facility] Last Admin: 06/03/18 18:25 Dose: 667 mg Clonidine HCl (Catapres) 0.1 mg PO Q6 PRN PRN Reason: Other Last Admin: 06/01/18 06:14 Dose: 0.1 mg Clonidine HCl (Catapres-Tts3 0.3 Mg/24 Hr) 1 patch TD Q7D@1000 [facility] Last Admin: 05/29/18 15:40 Dose: 1 patch Darbepoetin Timothy (Aranesp) 150 mcg SC QWK [facility] Last Admin: 05/28/18 19:02 Dose: 150 mcg Docusate Sodium (Colace) 100 mg PO TID [facility] Last Admin: 06/03/18 18:25 Dose: 100 mg Hydralazine HCl (Apresoline) 100 mg PO TID [facility] Last Admin: 06/03/18 18:24 Dose: 100 mg Insulin Detemir (Levemir) 20 unit SC HS [facility] Last Admin: 06/03/18 22:37 Dose: 20 units Insulin Human Regular (Humulin R Low) 0 units SC ACHS [facility]; Protocol Last Admin: 06/03/18 22:36 Dose: Not Given Labetalol HCl (Trandate) 200 mg PO TID [facility] Last Admin: 06/03/18 18:25 Dose: 200 mg Losartan Potassium (Cozaar) 100 mg PO DAILY [facility] Last Admin: 06/03/18 10:26 Dose: 100 mg Magnesium Oxide (Mag-Ox) 400 mg PO BID [facility] Last Admin: 06/03/18 18:25 Dose: 400 mg Montelukast Sodium (Singulair) 10 mg PO HS [facility] Last Admin: 06/03/18 21:06 Dose: 10 mg Morphine Sulfate (Morphine) 1 mg IVP Q4H PRN PRN Reason: Pain, severe (8-10) Last Admin: 06/03/18 12:56 Dose: 1 mg Multivitamins (Thera Tab) 1 tab PO 0800 [facility] Last Admin: 06/03/18 10:27 Dose: 1 tab Pantoprazole Sodium (Protonix Ec Tab) 40 mg PO HS [facility] Last Admin: 06/03/18 21:06 Dose: 40 mg Prednisone (Prednisone Tab) 10 mg PO DAILY [facility] Last Admin: 06/03/18 10:27 Dose: 10 mg Risperidone (Risperdal Tab) 0.5 mg PO HS [facility]; Protocol Last Admin: 06/03/18 21:07 Dose: 0.5 mg Risperidone (Risperdal Tab) 0.5 mg PO DAILY [facility]; Protocol Last Admin: 12/31/18 10:27 Dose: 0.5 mg Saliva Substitute (Saliva Substitute) 0 ml PO 5XD PRN PRN Reason: DRY MOUTH Sodium Chloride (Crockett Nasal Ruffin) 0 ml NS Q2H PRN PRN Reason: Nasal congestion - Labs Labs: 06/03/18 06:30 06/03/18 06:30 PT 12.5 SECONDS (9.4-12.5) 05/30/18 06:06 INR 1.09 05/30/18 06:06 APTT 27.1 Seconds (25.1-36.5) 05/30/18 06:06 - Constitutional Appears: Non-toxic, No Acute Distress - Head Exam Head Exam: NORMAL INSPECTION, NORMOCEPHALIC - Eye Exam Eye Exam: Normal appearance Pupil Exam: NORMAL ACCOMODATION - ENT Exam ENT Exam: Mucous Membranes Dry - Respiratory Exam Respiratory Exam: Decreased Breath Sounds, NORMAL BREATHING PATTERN - Cardiovascular Exam Cardiovascular Exam: REGULAR RHYTHM, +S1, +S2 Additional comments: Telemetry NSR 70's Left IJ permacath Right chest port - GI/Abdominal Exam GI & Abdominal Exam: Soft, Normal Bowel Sounds Additional comments: colostomy - Exam Additional comments: ESRD on hemodialysis, had hemodialysis yesterday - Extremities Exam Additional comments: 3-4+ edema - Neurological Exam Neurological Exam: Alert, Awake - Psychiatric Exam Psychiatric exam: Normal Affect, Normal Mood - Skin Skin Exam: Dry, Normal Color, Warm Assessment and Plan - Assessment and Plan (Free Text) Assessment: A 62 year old morbidly obese female who got transferred to [facility] due to [facility] mental status. Patient is known to service from previous multiple admissions. History of coronary artery disease with stent of circumflex,hypertension,hyperlipidemia,diabetes,sleep apnea,COPD, congestive heart failure, DVT/PE. History of bowel resection in the past with colostomy. She was admitted to [facility] due to small bowel obstruction and on 04/16/18 she had explor-lap and lysis of adhesions and ventral hernia repair with revision of colostomy (Dr. Mckeon).Postoperatively, patient had infection involving the mesh placed for the hernia repair and it was recommended that she undergo an additional procedure to have the mesh removed however patient refused surgical procedure. She was stablized and transferred to [facility]. Chest X ray showed severe cardiomegaly,moderate to severe pulmonary congestion.Not in respiratory distress, On nasal cannula 4l/min. Troponin 0.14/.15, denies chest pain, EKG- normal sinus rhythm, elevated troponin due to renal insuffiency. Will treat medically. Surgical follow up for abdominal wound. Being followed up by Nephrology for worsening renal status. On hemodialysis. Shiley catheter changed to permacath left IJ . Discharge planning to [facility] with hemodialysis.Cardiac stat us stable. Plan: More awake, not moaning, able to hold conversation No distress, no shortness of breath, on nasal cannula Cardiac status stable Controlled blood pressure Had hemodialysis yesterday On Hydralazine 100mg TID, Labetolol 200 mg TID, Losartan 25 mg daily, Eliquis 2.5 mg BID Catapres 0.3mg/24 hours every week,Solumedrol 30 mg daily, Continue current treatment Continue current medications Discharge planning,[facility] with hemodialysis Will follow up Plan and treatment discussed with Dr. Guerrero
--- NOTE | 2018-06-04 10:15 | CP.PCM.PN ---
Subjective - Date & Time of Evaluation Date of Evaluation: 06/04/18 Time of Evaluation: 10:14 - Subjective Subjective: Nephrology Consultation Note: Assessment: critical SHELBI ? pre-renal/ATN versus AIN as also with peripheral eosinophilia and eosinolphiuria, started HD 05/28/18 pulmonary congestion with fluid overload. hypomag, hyperphosphatemia hyperkalemia SBO s/p ex lap with ? MESH infection AMS, delirium left adrenal adenoma, Rt renal hyperdense cyst chronic hypercapnic respi failure Diabetic chronic Kidney Disease (E11.22) Hypertensive Chronic Kidney Disease (I12.9) Chronic Kidney Disease (N18.3) Stage 3 with 2.4 gm proteinuria (R80.9) likely due to DM/HTN/Obesity Anemia Vit D def morbid obesity, CAD s/p stent, COPD/SUMMER, rectal ca s/p colostomy Plan seen on hd , continue TTS bp acceptable Monitor Input/Output, daily weights and renal function with basic metabolic panel PRBC as needed d/w heme and okay to use KAVYA from heme perspective. on weekly aransep recheck phos tomorrow on binder d/w ID re; concerns for AIN, eosinophilia and antibiotics. had d/c abx started on steroids - will defer to pcp but given co-morbids would not rec prolonged course Adrenal adenoma work up with plasma renin/aldosterone, plasma metanephrine NEGATIVE. outpt 1 mg dexa suppression test repeat renal sono in 6 months to assess her Rt renal cyst Dose meds/antibiotics for reduced GFR. Avoid fleets enema/magnesium based laxatives. Avoid nephrotoxins/NSAIDs/ iodinated contrast (unless needed emerge ntly) Glycemic control S: seen and examined on hd uf goal 3kg Physical Examination: General Appearance: comfortable, morbidly obese Vitals reviewed and noted as below Head; Atraumatic, normocephalic EYES: Pupils are equal, round and reactive to light accommodation. Sclera is anicteric. Neck; supple no lymphadenopathy, no thyromegaly or bruit Lungs: improved respiratory rate/effort. reduced bs at basees Heart: normal rate. s1s2 normal. No rub or gallop. Extremities: 2+ edema, No varicose veins Neurological: Patient is confused Skin: Warm and dry. Normal turgor. No rash. Palpitation: Normal elasticity for age Abdomen: Abdomen is + colostomy. Psych: deferred MSK: no joint tenderness or swelling. Digits and nails normal, no deformity : kidney or bladder not palpable. has linares left IJ PC + rt side criss cath Labs/imaging reviewed. Past medical history, past surgical history, family history, social history, allergy reviewed and noted as below Family hx: no hx of CKD. Rest non-contributory Objective - Vital Signs/Intake and Output Vital Signs (last 24 hours): Temp Pulse Resp BP Pulse Ox 97.7 F 71 19 129/44 L 98 06/04/18 06:00 06/04/18 06:00 06/04/18 06:00 06/04/18 06:00 06/04/18 06:00 Intake and Output: 06/04/18 06/04/18 06:59 18:59 Intake Total 120 Output Total 0 Balance 120 - Medications Medications: Current Medications Acetaminophen (Tylenol 325mg Tab) 650 mg PO Q4H PRN PRN Reason: Pain, Mild (1-3) Last Admin: 06/03/18 18:25 Dose: 650 mg Acetylcysteine (Acetylcysteine 20%) 4 ml IH BIDRESP [facility] Last Admin: 06/04/18 07:20 Dose: 4 ml Albuterol/Ipratropium (Duoneb 3 Mg/0.5 Mg (3 Ml) Ud) 3 ml IH [id number] PRN PRN Reason: Shortness of Breath Last Admin: 06/01/18 09:05 Dose: 3 ml Apixaban (Eliquis) 2.5 mg PO BID [facility]; Protocol Last Admin: 06/03/18 18:25 Dose: 2.5 mg Arformoterol Tartrate (Brovana) 15 mcg IH [id number] [facility] Last Admin: 06/04/18 07:20 Dose: 15 mcg Armodafinil (Nuvigil 150 Mg Tab) 150 mg PO DAILY [facility] Last Admin: 06/03/18 10:26 Dose: 150 mg Budesonide (Pulmicort Respules) 0.5 mg IH [id number] [facility] Last Admin: 06/04/18 07:20 Dose: 0.5 mg Calcium Acetate (Phoslo) 667 mg PO WM [facility] Last Admin: 06/03/18 18:25 Dose: 667 mg Clonidine HCl (Catapres) 0.1 mg PO Q6 PRN PRN Reason: Other Last Admin: 06/01/18 06:14 Dose: 0.1 mg Clonidine HCl (Catapres-Tts3 0.3 Mg/24 Hr) 1 patch TD Q7D@1000 [facility] Last Admin: 05/29/18 15:40 Dose: 1 patch Darbepoetin Timothy (Aranesp) 150 mcg SC QWK [facility] Last Admin: 05/28/18 19:02 Dose: 150 mcg Docusate Sodium (Colace) 100 mg PO TID [facility] Last Admin: 06/03/18 18:25 Dose: 100 mg Hydralazine HCl (Apresoline) 50 mg PO BID [facility] Hydralazine HCl (Apresoline) 10 mg PO QID PRN PRN Reason: For SBP>170 Insulin Detemir (Levemir) 20 unit SC [facility] Last Admin: 06/03/18 22:37 Dose: 20 units Insulin Human Regular (Humulin R Low) 0 units SC [facility]; Protocol Last Admin: 06/03/18 22:36 Dose: Not Given Labetalol HCl (Trandate) 200 mg PO TID [facility] Last Admin: 06/03/18 18:25 Dose: 200 mg Losartan Potassium (Cozaar) 100 mg PO DAILY [facility] Last Admin: 06/03/18 10:26 Dose: 100 mg Magnesium Oxide (Mag-Ox) 400 mg PO BID [facility] Last Admin: 06/03/18 18:25 Dose: 400 mg Montelukast Sodium (Singulair) 10 mg PO [facility] Last Admin: 06/03/18 21:06 Dose: 10 mg Morphine Sulfate (Morphine) 1 mg IVP Q4H PRN PRN Reason: Pain, severe (8-10) Last Admin: 06/03/18 12:56 Dose: 1 mg Multivitamins (Thera Tab) 1 tab PO 0800 [facility] Last Admin: 06/03/18 10:27 Dose: 1 tab Pantoprazole Sodium (Protonix Ec Tab) 40 mg PO [facility] Last Admin: 06/03/18 21:06 Dose: 40 mg Prednisone (Prednisone Tab) 10 mg PO DAILY [facility] Last Admin: 06/03/18 10:27 Dose: 10 mg Risperidone (Risperdal Tab) 0.5 mg PO HS [facility]; Protocol Last Admin: 06/03/18 21:07 Dose: 0.5 mg Risperidone (Risperdal Tab) 0.5 mg PO DAILY [facility]; Protocol Last Admin: 06/03/18 10:27 Dose: 0.5 mg Saliva Substitute (Saliva Substitute) 0 ml PO 5XD PRN PRN Reason: DRY MOUTH Sodium Chloride (Higginson Nasal Capron) 0 ml NS Q2H PRN PRN Reason: Nasal congestion - Labs Labs: 06/03/18 06:30 06/03/18 06:30 PT 12.5 SECONDS (9.4-12.5) 05/30/18 06:06 INR 1.09 05/30/18 06:06 APTT 27.1 Seconds (25.1-36.5) 05/30/18 06:06
--- NOTE | 2018-06-04 10:23 | PN ---
DATE: 06/04/2018 SUBJECTIVE: The patient is in bed, in no acute distress, nontoxic. OBJECTIVE: VITAL SIGNS: Temperature is 97, blood pressure is 120/40, respiratory rate of 18, heart rate of 69. HEENT: Unremarkable. NECK: Supple. LUNGS: Have decreased breath sounds. HEART: Normal S1, S2. ABDOMEN: Soft, nontender. LABORATORY EXAMINATION: Reveals a white count of 9.7 and a hemoglobin of 8. BUN of 22, creatinine of 2.4. Urinalysis is noted. ASSESSMENT AND PLAN: A 62-year-old female, status post abdominal wall cellulitis, probable infected abdominal mesh more recent cultures. Patient with chronic obstructive pulmonary disease, vancomycin-resistant Enterococcus, urinary tract infection, diabetes, hypertension, coronary artery disease and acute renal failure status post hemodialysis, catheter placement, did have eosinophilia may be secondary to medications, currently now off of antibiotics, afebrile. She is awake and appears much improved today. Review of orders and prednisone. We will follow with you. Lawrence Cheek MD
--- NOTE | 2018-06-04 11:04 | PN ---
DATE: 06/04/2018 PULMONARY PROGRESS NOTE REFERRING PHYSICIAN: Elroy Florian MD SUBJECTIVE: The patient seen in hemodialysis. Reports feeling well today. No acute distress. No overnight events reported. Reports wearing BiPAP for a little time last night. No headache, rhinitis, cough, shortness of breath, chest pain, abdomina pain, nausea, vomiting, diarrhea or leg pain reported. OBJECTIVE: GENERAL: No acute distress. VITAL SIGNS: Blood pressure 129/44, pulse 71, temperature 97.7 and oxygen saturation 98%. HEENT: Moist mucous membranes. Crowded airway. Mallampati score of 4. NECK: Supple. No JVD. LUNGS: Few rhonchi bilaterally. CARDIOVASCULAR: S1 and S2 audible. ABDOMEN: Soft, colostomy bag present with soft stool. Surgical abdominal wound with dressing in place. EXTREMITIES: Bilateral lower extremity edema. NEUROLOGIC: Awake, alert and verbal. Follows commands. MEDICATIONS: Reviewed. Tylenol 650 mg every 4 hours p.r.n., Mucomyst 4 mL inhalation twice a day, DuoNeb 3 mL inhalation every 6 hours p.r.n., Eliquis 2.5 mg twice a day, Brovana 15 mcg every 12 hours, Nuvigil 150 mg daily, Pulmicort 0.5 mg every 12 hours, calcium acetate 667 mg Mondays and Wednesdays, clonidine 0.1 mg every 6 hours p.r.n., clonidine 0.3 mg patch weekly, Aranesp 150 mcg subcutaneously weekly, Colace 100 mg three times a day, hydralazine 10 mg four times a day p.r.n. for systolic blood pressure greater than 170, hydralazine 15 mg twice a day, Levemir 20 units subcutaneously at bedtime, Humulin R sliding scale, labetalol 200 mg three times a day, Cozaar 100 mg daily, magnesium oxide 400 mg twice a day, Singulair 10 mg at bedtime, morphine 1 mg IV push every 4 hours p.r.n., multivitamin one tab daily, Protonix 40 mg at bedtime, prednisone 10 mg daily, Risperdal 0.5 mg at bedtime daily, Risperdal 0.5 mg daily, saliva substitute five times a day p.r.n. and sodium chloride nasal spray every 2 hours p.r.n. LABORATORY DATA: Reviewed. POC glucose 54. IMPRESSION AND PLAN: History of laparotomy for small bowel obstruction, chronic lung disease, sleep apnea syndrome, hypoventilation syndrome, renal failure requiring hemodialysis, history of pulmonary embolism, deep venous thrombosis, currently in anticoagulation therapy, pulmonary hypertension and morbid obesity. Pulmonary point of view, continue to encourage bilevel positive airway pressure use at bedtime, sleep apnea precaution, head of bed elevated at 45 degrees, continue daytime stimulant, pressure ulcer precaution, gastric prophylaxis and deep venous thrombosis prophylaxis. The patient would benefit from physical therapy. This patient was seen and examined with Dr. Ayala. Discussed assessment and plan as described above. Thank you for this consult and we will follow with you. Breezy Schafer APN Pamela Ayala MD
[2018-06-04] MEDS: Multivitamin Therapeutic Tab PO SCH (13:07)
[2018-06-04] MEDS: Magnesium Oxide 400 mg Tab UD PO SCH ×2 (13:08→17:18)
[2018-06-04] MEDS: Darbepoetin Alfa 100 mcg/ml Inj SC SCH (13:54)
--- NOTE | 2018-06-04 14:54 | PN ---
DATE: 06/04/2018 REASON FOR CONSULTATION: Followup, cardiac evaluation, history of congestive heart failure, transferred from retirement with lethargy, history of acute kidney injury on dialysis, history of coronary artery disease. This note is in addition to dictated by our nurse practitioner, Tiffanie Osborne. The patient feels a lot better, started eating and drinking for the New Year. Hemoglobin 8.8 and hematocrit 31.2. RECOMMENDATION: Continue clonidine. Monitor for blood pressure, may need to reduce the antihypertensive medications once the dialysis is started, so we will cut down the hydralazine to 50 b.i.d. and put p.r.n. because after the dialysis the patient may drop the blood pressure. We will follow with you. We will put systolic 50 b.i.d. old systolic less than 140 and we will discontinue 100 mg t.i.d. We will put p.r.n. hydralazine because the patient after dialysis may drop the blood pressure and become hypotensive. Thank you Dr. Florian for providing the opportunity in taking care of the patient, Ismael Vasquez. This note is in addition to dictated by nurse practitioner, Tiffanie Osborne. Pamela Guerrero MD
[2018-06-04] MEDS: Insulin Reg-LOW-Coverage SC SCH ×4 (16:40→21:33)
--- NOTE | 2018-06-04 19:24 | PN ---
DATE: 06/04/2018 This is [facility] visit on the telemetry floor. For Dr. Faye. SUBJECTIVE: The patient is a 62-year-old female seen lying awaiting in bed more alert this visit, family at the bedside with good effect of her dialysis. The patient is more clear today mentally than she has been in days. The patient, however, has not been out of bed and we will recommend this as she is to be transferred to [facility] tomorrow as per her primary doctor. With her anemic indices being monitored by her renal dairy nutrition consultant with Aranesp given. She will continue on Eliquis as per Dr. Faye's recommendations with an iron, vitamin, and counts to be monitored there. PHYSICAL EXAMINATION: VITAL SIGNS: Temperature 97.7, pulse 71, respirations 19, blood pressure 129/44 with pulse ox 98%. HEENT: Unremarkable. NECK: Supple. HEART: Regular rate. LUNGS: Clear with decrease breath sound at the bases. ABDOMEN: Obese, soft, and nontender with viable colostomy and dressing noted. EXTREMITIES: Chronic +1 edema of the hands and feet. NEUROLOGIC: Awake and alert. Also possible decubitus ulcer on her sacrum, this has not been inspected this visit. LABORATORY DATA: Labs were done on the 06/01/2018, at the time of her dialysis with labs to be ordered for the morning as indicated. ASSESSMENT AND PLAN: Chronic kidney disease with dialysis began on with anemia of chronic kidney disease, history of congestive heart failure, status post colostomy revision with hernia repair, hypertension, deep vein thrombosis, pulmonary embolism, sleep apnea, rectal cancer, history of recent myocardial infarction, deconditioning, anxiety, and diabetes mellitus. It is also noted that the patient had episodes of hypoglycemia, which will be strictly monitored at the facility as per nursing. We recommend the patient follow up with Dr. Faye in the office while there and especially after her discharge to home. Continue present medical regimen as indicated with consideration for transfusion should her medical condition warranted. This is a complex patient with comprehensive medically necessary and appropriate visit carried out in excess of 20 minutes with the patient and her family members question answered to their satisfaction. Zuhair Herrera MD [facility] # [id number]
--- NOTE | 2018-06-04 20:14 | PN ---
DATE: 06/03/2018 SUBJECTIVE: The patient is in hemodialysis unit. PHYSICAL EXAMINATION GENERAL: She is alert, awake and oriented. She is comfortable and in no distress. VITAL SIGNS: Temperature is 97, heart rate is 70, blood pressure 121/41, and respiration 18. HEAD AND NECK: Normal. No JVD. No thyromegaly. CHEST: Clear bilateral. CARDIAC: First sound and second sound normal. ABDOMEN: Soft. Midline incision stable. There is mild drainage, but stable. Colostomy is intact. EXTREMITIES: Lower extremity, decreased edema +2, is better than before. NEUROLOGIC: Normal. LABORATORY STUDY: Shows white count 9.7, hemoglobin 8.8, hematocrit 31.2, platelets 187. Chemistry: Sodium 135, potassium 3.9, chloride 98, bicarb 34, BUN 22, creatinine 2.4, calcium 8.3, phosphorus 3.7. AST 38, ALT 15, alk phos 293. IMPRESSION AND PLAN: 1. Acute renal failure on top of chronic renal failure chronic kidney disease, stage V, she is on hemodialysis now. 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 She also has diabetic nephropathy and hypertensive nephropathy. Continue hemodialysis, she seems doing better. 2. Chronic anemia. She had endoscopy in the past, history of rectal cancer, no mets as per Dr. Faye. 3. Obstructive sleep apnea, chronic obstructive pulmonary disease, and morbid obesity. Continue bilevel positive airway pressure. Continue nebulizer treatment. Continue Provigil. 4. Diabetes. Blood sugar running low. We will increase p.o. intake. She is not eating as much as before. We will decrease her Levemir to 10 units a day instead of 20. 5. Hypertension stable. She is currently on Cozaar 100 mg p.o. daily. She continue clonidine. Continue rest of medications, labetalol and nephrology has been monitoring her blood pressure, hydralazine and seems doing well. 6. History of hypercoagulable state, deep venous thrombosis, pulmonary embolism. Continue Eliquis 2.5 mg twice a day. Continue current treatment. Elroy Florian MD [facility] # [id number]
--- NOTE | 2018-06-04 20:55 | PN ---
DATE: 06/04/2018 SUBJECTIVE: The patient is a 62-year-old female. She is in bed, comfortable, no distress. She has no new complaints. PHYSICAL EXAMINATION VITAL SIGNS: Temperature is 98, heart rate is 70, blood pressure 159/48. HEAD AND NECK: Normal. No JVD. No thyromegaly. CHEST: Clear bilateral. CARDIAC: First sound and second sound normal. No murmur, rub or gallop. ABDOMEN: Obese with midline incisions and colostomy in the right side, nontender. EXTREMITIES: Lower extremity, mild edema. NEUROLOGIC: Normal other than general weakness. LABORATORY DATA: Her blood sugar is in the 40s, otherwise stable. IMPRESSION AND PLAN: 1. Acute on top of chronic renal failure, chronic kidney disease, stage V, on hemodialysis. etiology is interstitial nephritis, hypertension and diabetic nephropathy. Continue hemodialysis. Follow up the drawbench operator helper. 2. Hypertension, is difficult to control. Continue Cozaar. Continue labetalol, Catapres, clonidine, and hydralazine. We will follow up with specialist on that. Seems stable. 3. Morbid obesity, obstructive sleep apnea, and chronic obstructive pulmonary disease. Continue inhaled bronchodilators and prednisone. We will decrease prednisone from 10 mg to 5 mg daily. 4. Insulin-dependent diabetes. Recurrent hypoglycemia. We will decrease Levemir, maybe we will stop it and will see how she do. We will monitor the case. 5. Chronic back pain, peripheral neuropathy. Continue Lyrica and Dilaudid p.r.n. The patient is improving and she will need physical therapy, rehab unit at probably [facility] where there is hemodialysis. The patient's son knows the plan and will continue current therapy. Elroy Florian MD
[2018-06-04] MEDS: Pantoprazole 40 mg EC Tab PO SCH (21:28)
[2018-06-04] MEDS: Insulin Detemir 100 units/ml Vial (Levemir) SC SCH (22:34)
[2018-06-04] MEDS: Morphine 2 mg/ml ISec IVP PRN (22:39)
[2018-06-05 06:41] LABS: BASO # 0.02 K/mm3 (0.0-2.0); BASO % 0.2 % (0.0-3.0); EOS # 0.5 (0.0-0.7); EOS % 5.6 % (1.5-5.0); GRAN # 6.1 (1.4-6.5); GRAN % 71.3 % (50.0-68.0); LYMPH # 1.2 (1.2-3.4); LYMPH % 14.2 % (22.0-35.0); MEAN CELL VOLUME 99.1 fl (80.0-105.0); MEAN CORPUSCULAR HEMOGLOBIN 27.7 pg (25.0-35.0); MEAN PLATELET VOLUME 9.7 fl (7.0-11.0); MONO # 0.7 (0.1-0.6); MONO % 8.7 % (1.0-6.0); RBC 3.25 10^6/uL (3.5-6.1); RED CELL DISTRIBUTION WIDTH 18.7 % (11.5-14.5); WHITE BLOOD COUNT 8.6 10^3/uL (4.5-11.0)
[2018-06-05] MEDS: Acetylcysteine 20% Inhal Soln (4ml) IH SCH ×2 (07:23→19:45)
[2018-06-05] MEDS: Arformoterol 15 mcg/2 ml Inh Sol IH SCH ×2 (07:23→19:45)
[2018-06-05] MEDS: Insulin Reg-LOW-Coverage SC SCH ×3 (07:28→18:39)
[2018-06-05 07:49] LABS: ALB/GLOB RATIO 0.7 (1.1-1.8); ALBUMIN 2.6 g/dL (3.0-4.8)
[2018-06-05] MEDS: Multivitamin Therapeutic Tab PO SCH (09:11)
[2018-06-05] MEDS: Magnesium Oxide 400 mg Tab UD PO SCH (09:11)
--- NOTE | 2018-06-05 11:15 | PN ---
DATE: 06/05/2018 SUBJECTIVE: The patient is lying in bed, asleep, but easily arousable. Repots not using CPAP machine last night. No headache, rhinitis, cough, shortness of breath, chest pain, abdominal pain, nausea, vomiting, diarrhea, or leg pain reported. OBJECTIVE GENERAL: No acute distress. VITAL SIGNS: Blood pressure 135/48, pulse 78, temperature 98.3, and oxygen saturation 97% on nasal cannula. HEENT: Moist mucous membranes. Mallampati score of 4. Crowded airway. NECK: Supple. No JVD. LUNGS: Few scattered rhonchi bilaterally. CARDIOVASCULAR: S1 and S2 audible. ABDOMEN: Soft. Colostomy bag present with soft stool. Surgical abdominal wound with dressing in place. EXTREMITIES: Bilateral lower extremity edema. NEUROLOGIC: Awake, alert and verbal. Follows commands. MEDICATIONS: Reviewed. Tylenol 650 mg every 4 hours p.r.n. for mild pain, Mucomyst 4 mL inhalation twice a day, DuoNeb 3 mL inhalation every 6 hours p.r.n., Eliquis 2.5 mg twice a day, Brovana 15 mcg every 12 hours, Nuvigil 150 mg daily, Pulmicort 0.5 mg every 12 hours, calcium acetate 667 mg Sunday and Sunday, clonidine 0.1 mg every 6 hours p.r.n., clonidine patch 0.3 mg every seven days, Aranesp 150 mcg weekly, Colace 100 mg three times a day, hydralazine 10 mg four times a day p.r.n., hydralazine mg twice a day, Levemir 10 units subcutaneously at bedtime, Humulin R sliding scale a.c. and at bedtime, labetalol 200 mg three times a day, Cozaar 100 mg daily, Singulair 10 mg at bedtime, morphine 1 mg every 4 hours p.r.n., multivitamin one tab p.o. daily, Protonix 40 mg at bedtime, prednisone 10 mg daily, Risperdal 0.5 mg at bedtime and 0.5 mg daily, saliva substitute five times a day p.r.n., Peach nasal spray every 2 hours p.r.n. and Ambien 5 mg p.o. at bedtime p.r.n. LABORATORY DATA: Reviewed. WBC 8.6, RBC 3.25, hemoglobin 9, hematocrit 32.2 and platelets 208. Sodium 134, potassium 4.1, chloride 98, carbon dioxide 33, anion gap 7, BUN 15, creatinine 2.1, GFR 24, POC glucose 102, random glucose 95, calcium 8, total bilirubin 0.3, AST 31, ALT 14, alkaline phosphatase 263, total protein 6.6, albumin 2.6, globulin 4.0 and albumin-globulin ratio of 0.7. IMPRESSION AND PLAN: History of laparotomy for small bowel obstruction, chronic lung disease, sleep apnea syndrome, hypoventilation syndrome, renal failure requiring hemodialysis, history of pulmonary embolism, deep venous thrombosis, currently on anticoagulation therapy, pulmonary hypertension, morbid obesity. Pulmonary point of view, continue bilevel positive airway pressure use at bedtime, head of bed elevated at 45 degrees, sleep apnea precaution, continue daytime stimulant, pressure ulcer precaution, gastric prophylaxis, deep venous thrombosis prophylaxis. The patient would benefit from physical therapy. This patient was seen and examined with Dr. Ayala. Discussed assessment and plan as described above. Thank you for this consult and we will follow with you. Breezy Schafer APN Pamela Ayala MDDD: 06/05/2018 10:26:52 ANT
--- NOTE | 2018-06-05 12:23 | PN ---
DATE: 06/04/2018 REASON FOR CONSULTATION: Followup, cardiac evaluation, admitted with generalized weakness, lethargy, history of coronary artery disease, statu post acute kidney injury, status post dialysis. SUBJECTIVE: The patient denied any chest pain, shortness of breath, or any palpitation. OBJECTIVE: GENERAL: Not in apparent distress. VITAL SIGNS: Temperature is afebrile, heart rate 60, and blood pressure 130/80. HEENT: PERRLA, intact. NECK: Supple. No carotid bruit or thyromegaly. CHEST: Clear to auscultation. HEART: S1 and S2, regular. ABDOMEN: Soft. EXTREMITIES: Clubbing and cyanosis negative. LABORATORY DATA: Blood workup as follows: WBC 8.6, hemoglobin 9, hematocrit 32.2, and platelet count 208. Chemistry showed sodium 134, potassium 4, chloride 98, carbon dioxide 33, anion gap of 7, BUN 15, and creatinine 2.1. IMPRESSION: A 62-year-old female with past medical history significant for coronary artery disease, admitted with generalized weakness, lethargy, worsening renal insufficiency, acute kidney injury, chronic renal insufficiency, status post dialysis, history of morbid obesity, history of diabetes, hypertension, history of rectal cancer, status post colostomy, status post intestinal obstruction, status post abdominal surgery. Now, the patient is much awake and alert, status post dialysis. RECOMMENDATION: Continue dialysis. Blood pressure is stable now and yesterday hydralazine has been decreased from 100 mg p.o. t.i.d. to 50 mg p.o. b.i.d. Monitor the blood pressure because the patient's blood pressure is decreasing after dialysis. Continue hydralazine, start p.r.n. 10 mg and continue hydralazine 50 mg p.o. b.i.d. and decrease from 100 t.i.d. Continue Eliquis for DVT. Continue losartan. We will follow with you. Thank you Dr. Florian for providing the opportunity in taking care of the patient, Ismael Vasquez. Continue dialysis. Discharge planning. Pamela Guerrero MD
--- NOTE | 2018-06-05 15:23 | CP.PCM.PN ---
Subjective - Date & Time of Evaluation Date of Evaluation: 06/05/18 Time of Evaluation: 15:20 - Subjective Subjective: Nephrology Consultation Note: Assessment: Stable SHELBI ? pre-renal/ATN versus AIN as also with peripheral eosinophilia and eosinolphiuria, started HD 05/28/18 pulmonary congestion with fluid overload. hypomag, hyperphosphatemia hyperkalemia SBO s/p ex lap with ? MESH infection AMS, delirium left adrenal adenoma, Rt renal hyperdense cyst chronic hypercapnic respi failure Diabetic chronic Kidney Disease (E11.22) Hypertensive Chronic Kidney Disease (I12.9) Chronic Kidney Disease (N18.3) Stage 3 with 2.4 gm proteinuria (R80.9) likely due to DM/HTN/Obesity Anemia Vit D def morbid obesity, CAD s/p stent, COPD/SUMMER, rectal ca s/p colostomy Plan HD as per TTS schedule. no urine output as per staff. HTN control on multiple meds. also on losartan now Monitor Input/Output, daily weights and renal function with basic metabolic panel PRBC as needed d/w heme and okay to use KAVYA from heme perspective. on weekly aransep supplement lytes as needed d/w ID re; concerns for AIN, eosinophilia and antibiotics. had d/c abx pt started on steroids empirically but will be hesitant to give them more than few days due to her co-morbidities and current clinical condition. pt not a candidate for kidney biopsy Adrenal adenoma work up with plasma renin/aldosterone, plasma metanephrine NEGATIVE. outpt 1 mg dexa suppression test repeat renal sono in 6 months to assess her Rt renal cyst Dose meds/antibiotics for reduced GFR. Avoid fleets enema/magnesium based laxatives. Avoid nephrotoxins/NSAIDs/ iodinated contrast (unless needed emergently) Glycemic control Further work up/management as per primary team overall prognosis poor/guarded. d/c planning to SNF, likely with outpt HD need atleast in short term basis. will continue to monitor for renal recovery Thanks for allowing me to participate in care of your patient. Will follow patient with you. Please call if any Qs. had d/w team Dr Dae Dawn Office: [phone] Chief Complaint;AMS Reason for consult: Acute Kidney Injury, CKD 3 HPI: Pt is a 62 F with hx of diabetes Mellitus (15 years), hypertension (years), CKD 3 with baseline cr 1.2-1.3 recently admitted after complicated abdominal surgery that represents w/ abdominal pain. Was recommended to get mesh removed last admission but refusing and still refusing per surgical service. She does not know why she is in the hospital. She denies n/v. She endorses reduced po intake. ROS: pt not able to provide much reliably. confusion better though. she is more awake. diapers dry as per staff and no urine output Physical Examination: General Appearance: comfortable, morbidly obese. not in acute respi distress Vitals reviewed and noted as below Head; Atraumatic, normocephalic EYES: Pupils are equal, round and reactive to light accommodation. Eye muscles and extraocular movement intact. Sclera is anicteric. Neck; supple no lymphadenopathy, no thyromegaly or bruit Lungs: improved respiratory rate/effort. Breath sounds bilateral equal, diminis hed at bases but overall limited exam due to her obesity Heart: normal rate. s1s2 normal. No rub or gallop. Extremities: 2+ edema, No varicose veins Neurological: Patient is more awake and alert less confused Skin: Warm and dry. Normal turgor. No rash. Palpitation: Normal elasticity for age Abdomen: Abdomen is + colostomy. midline donita + Psych: deferred MSK: no joint tenderness or swelling. Digits and nails normal, no deformity : kidney or bladder not palpable. left IJ PC + rt side criss cath Labs/imaging reviewed. Past medical history, past surgical history, family history, social history, allergy reviewed and noted as below Family hx: no hx of CKD. Rest non-contributory Objective - Vital Signs/Intake and Output Vital Signs (last 24 hours): Temp Pulse Resp BP Pulse Ox 98.3 F 90 20 150/46 L 97 06/05/18 12:00 06/05/18 12:00 06/05/18 12:00 06/05/18 12:00 06/05/18 06:00 Intake and Output: 06/05/18 06/05/18 06:59 18:59 Intake Total 360 Output Total 0 Balance 360 - Medications Medications: Current Medications Acetaminophen (Tylenol 325mg Tab) 650 mg PO Q4H PRN PRN Reason: Pain, Mild (1-3) Last Admin: 06/03/18 18:25 Dose: 650 mg Acetylcysteine (Acetylcysteine 20%) 4 ml IH BIDRESP [facility] Last Admin: 06/05/18 07:23 Dose: 4 ml Albuterol/Ipratropium (Duoneb 3 Mg/0.5 Mg (3 Ml) Ud) 3 ml IH [id number] PRN PRN Reason: Shortness of Breath Last Admin: 06/01/18 09:05 Dose: 3 ml Apixaban (Eliquis) 2.5 mg PO BID [facility]; Protocol Last Admin: 06/05/18 09:11 Dose: 2.5 mg Arformoterol Tartrate (Brovana) 15 mcg IH [id number] [facility] Last Admin: 06/05/18 07:23 Dose: 15 mcg Armodafinil (Nuvigil 150 Mg Tab) 150 mg PO DAILY [facility] Last Admin: 06/05/18 09:11 Dose: 150 mg Budesonide (Pulmicort Respules) 0.5 mg IH [id number] [facility] Last Admin: 06/04/18 20:00 Dose: 0.5 mg Calcium Acetate (Phoslo) 667 mg PO WM [facility] Last Admin: 06/05/18 14:14 Dose: 667 mg Clonidine HCl (Catapres) 0.1 mg PO Q6 PRN PRN Reason: Other Last Admin: 06/05/18 05:23 Dose: 0.1 mg Clonidine HCl (Catapres-Tts3 0.3 Mg/24 Hr) 1 patch TD Q7D@1000 [facility] Last Admin: 05/29/18 15:40 Dose: 1 patch Darbepoetin Timothy (Aranesp) 150 mcg SC QWK [facility] Last Admin: 06/04/18 13:54 Dose: 150 mcg Docusate Sodium (Colace) 100 mg PO TID [facility] Last Admin: 06/05/18 14:13 Dose: 100 mg Hydralazine HCl (Apresoline) 50 mg PO BID [facility] Last Admin: 06/05/18 09:09 Dose: 50 mg Hydralazine HCl (Apresoline) 10 mg PO QID PRN PRN Reason: For SBP>170 Insulin Detemir (Levemir) 10 unit SC HS [facility] Last Admin: 06/04/18 22:34 Dose: Not Given Insulin Human Regular (Humulin R Low) 0 units SC ACHS [facility]; Protocol Last Admin: 06/05/18 14:13 Dose: Not Given Labetalol HCl (Trandate) 200 mg PO TID [facility] Last Admin: 06/05/18 14:14 Dose: 200 mg Lactic Acid (Lac-Hydrin 12% Cream (140 G)) 1 ea TOP DAILY [facility] Losartan Potassium (Cozaar) 100 mg PO DAILY [facility] Last Admin: 06/05/18 09:12 Dose: 100 mg Montelukast Sodium (Singulair) 10 mg PO HS [facility] Last Admin: 06/04/18 21:28 Dose: 10 mg Morphine Sulfate (Morphine) 1 mg IVP Q4H PRN PRN Reason: Pain, severe (8-10) Last Admin: 06/04/18 22:39 Dose: 1 mg Multivitamins (Thera Tab) 1 tab PO 0800 [facility] Last Admin: 06/05/18 09:11 Dose: 1 tab Pantoprazole Sodium (Protonix Ec Tab) 40 mg PO HS [facility] Last Admin: 06/04/18 21:28 Dose: 40 mg Prednisone (Prednisone Tab) 10 mg PO DAILY [facility] Last Admin: 06/05/18 14:14 Dose: 10 mg Risperidone (Risperdal Tab) 0.5 mg PO HS [facility]; Protocol Last Admin: 06/04/18 21:29 Dose: 0.5 mg Risperidone (Risperdal Tab) 0.5 mg PO DAILY [facility]; Protocol Last Admin: 06/05/18 09:10 Dose: 0.5 mg Saliva Substitute (Saliva Substitute) 0 ml PO 5XD PRN PRN Reason: DRY MOUTH Sodium Chloride (Bledsoe Nasal Milroy) 0 ml NS Q2H PRN PRN Reason: Nasal congestion Zolpidem Tartrate (Ambien) 5 mg PO HS PRN; Protocol PRN Reason: Insomnia Last Admin: 06/04/18 23:02 Dose: 5 mg - Labs Labs: 06/05/18 06:15 06/05/18 06:15 PT 12.5 SECONDS (9.4-12.5) 05/30/18 06:06 INR 1.09 05/30/18 06:06 APTT 27.1 Seconds (25.1-36.5) 05/30/18 06:06
[2018-06-05] MEDS: Ammonium Lactate 12% Cream (140 g) TOP SCH (15:26)
[2018-06-05] MEDS: Albuterol-Ipratrop 3 mg / 0.5 (3 ml) UD IH PRN (15:28)
[2018-06-05] MEDS: Budesonide 0.5 mg/2 ml Inhal Susp UD IH SCH (19:45)
[2018-06-05] MEDS: Pantoprazole 40 mg EC Tab PO SCH (22:00)
[2018-06-05] MEDS: Insulin Detemir 100 units/ml Vial (Levemir) SC SCH (22:10)
--- NOTE | 2018-06-06 01:34 | PN ---
DATE: 06/05/2018 SUBJECTIVE: The patient is in bed, in no acute distress, nontoxic. No fevers and no chills. PHYSICAL EXAMINATION: VITAL SIGNS: Temperature is 98, blood pressure is 120/40, respiratory rate 18. HEENT: Unremarkable. NECK: Supple. LUNGS: Have decreased breath sounds. HEART: Normal S1, S2. ABDOMEN: Soft. LABORATORY DATA: Reveals a white count of 8.6. Chemistries are noted. REVIEW OF ORDERS: Reveals the patient to be off of antibiotics. ASSESSMENT AND PLAN: This is a 62-year-old female, status post abdominal wall cellulitis, probably infected abdominal mesh on more recent cultures. The patient has chronic obstructive lung disease, vancomycin-resistant Enterococcus, urinary tract infection, diabetes, hypertension, coronary artery disease and acute renal failure, status post hemodialysis, catheter placement, eosinophilia, currently off of antibiotics. We will follow with you. Lawrence Cheek MD
[2018-06-06] MEDS: Insulin Reg-LOW-Coverage SC SCH ×5 (07:47→22:33)
--- NOTE | 2018-06-06 08:00 | CP.PCM.PN ---
Subjective - Date & Time of Evaluation Date of Evaluation: 06/06/18 Time of Evaluation: 06:25 - Subjective Subjective: Alert, Awake, Lying in bed, no distress, having a conversation Reason for consultation and follow up: Cardiac evaluation of history of congestive heart failure, transferred from halfway due to lethargy, chronic kidney disease, on hemodialysis Seen and examined by me and Dr. Guerrero Objective - Vital Signs/Intake and Output Vital Signs (last 24 hours): Temp Pulse Resp BP Pulse Ox 98 F 84 20 126/56 L 97 06/06/18 05:59 06/06/18 05:59 06/06/18 05:59 06/06/18 05:59 06/06/18 05:59 Intake and Output: 06/06/18 06/06/18 06:59 18:59 Output Total 700 Balance -700 - Medications Medications: Current Medications Acetaminophen (Tylenol 325mg Tab) 650 mg PO Q4H PRN PRN Reason: Pain, Mild (1-3) Last Admin: 06/05/18 16:22 Dose: 650 mg Acetylcysteine (Acetylcysteine 20%) 4 ml IH BIDRESP [facility] Last Admin: 06/05/18 19:45 Dose: Not Given Albuterol/Ipratropium (Duoneb 3 Mg/0.5 Mg (3 Ml) Ud) 3 ml IH [id number] PRN PRN Reason: Shortness of Breath Last Admin: 06/05/18 15:28 Dose: 3 ml Apixaban (Eliquis) 2.5 mg PO BID [facility]; Protocol Last Admin: 06/05/18 17:41 Dose: 2.5 mg Arformoterol Tartrate (Brovana) 15 mcg IH [id number] [facility] Last Admin: 06/05/18 19:45 Dose: 15 mcg Armodafinil (Nuvigil 150 Mg Tab) 150 mg PO DAILY [facility] Last Admin: 06/05/18 09:11 Dose: 150 mg Aspirin (Aspirin Chewable) 81 mg PO DAILY [facility] Budesonide (Pulmicort Respules) 0.5 mg IH [id number] [facility] Last Admin: 06/05/18 19:45 Dose: 0.5 mg Calcium Acetate (Phoslo) 667 mg PO WM [facility] Last Admin: 06/05/18 17:40 Dose: 667 mg Clonidine HCl (Catapres) 0.1 mg PO Q6 PRN PRN Reason: Other Last Admin: 06/05/18 05:23 Dose: 0.1 mg Clonidine HCl (Catapres-Tts3 0.3 Mg/24 Hr) 1 patch TD Q7D@1000 [facility] Last Admin: 05/29/18 15:40 Dose: 1 patch Darbepoetin Timothy (Aranesp) 150 mcg SC QWK [facility] Last Admin: 06/04/18 13:54 Dose: 150 mcg Docusate Sodium (Colace) 100 mg PO TID [facility] Last Admin: 06/05/18 17:40 Dose: 100 mg Hydralazine HCl (Apresoline) 50 mg PO BID [facility] Last Admin: 06/05/18 17:41 Dose: 50 mg Hydralazine HCl (Apresoline) 10 mg PO QID PRN PRN Reason: For SBP>170 Insulin Detemir (Levemir) 10 unit SC [facility] Last Admin: 06/04/18 22:34 Dose: Not Given Insulin Human Regular (Humulin R Low) 0 units SC [facility]; Protocol Last Admin: 06/06/18 07:47 Dose: Not Given Labetalol HCl (Trandate) 200 mg PO TID [facility] Last Admin: 06/05/18 17:40 Dose: 200 mg Lactic Acid (Lac-Hydrin 12% Cream (140 G)) 1 ea TOP DAILY [facility] Last Admin: 06/05/18 15:26 Dose: 1 applic Losartan Potassium (Cozaar) 100 mg PO DAILY [facility] Last Admin: 06/05/18 09:12 Dose: 100 mg Magnesium Oxide (Mag-Ox) 400 mg PO BID [facility] Montelukast Sodium (Singulair) 10 mg PO [facility] Last Admin: 06/04/18 21:28 Dose: 10 mg Morphine Sulfate (Morphine) 1 mg IVP Q4H PRN PRN Reason: Pain, severe (8-10) Last Admin: 06/04/18 22:39 Dose: 1 mg Multivitamins (Thera Tab) 1 tab PO 0800 [facility] Last Admin: 06/05/18 09:11 Dose: 1 tab Pantoprazole Sodium (Protonix Ec Tab) 40 mg PO [facility] Last Admin: 06/04/18 21:28 Dose: 40 mg Prednisone (Prednisone Tab) 10 mg PO DAILY [facility] Last Admin: 06/05/18 14:14 Dose: 10 mg Pregabalin (Lyrica) 50 mg PO BID [facility] Last Admin: 06/05/18 20:33 Dose: 50 mg Risperidone (Risperdal Tab) 0.5 mg PO HS [facility]; Protocol Last Admin: 06/04/18 21:29 Dose: 0.5 mg Risperidone (Risperdal Tab) 0.5 mg PO DAILY [facility]; Protocol Last Admin: 06/05/18 09:10 Dose: 0.5 mg Saliva Substitute (Saliva Substitute) 0 ml PO 5XD PRN PRN Reason: DRY MOUTH Sodium Chloride ([place] Nasal [place]) 0 ml NS Q2H PRN PRN Reason: Nasal congestion Zolpidem Tartrate (Ambien) 5 mg PO HS PRN; Protocol PRN Reason: Insomnia Last Admin: 06/05/18 23:41 Dose: 5 mg - Labs Labs: 06/05/18 06:15 06/05/18 06:15 PT 12.5 SECONDS (9.4-12.5) 05/30/18 06:06 INR 1.09 05/30/18 06:06 APTT 27.1 Seconds (25.1-36.5) 05/30/18 06:06 - Constitutional Appears: Non-toxic, No Acute Distress - Head Exam Head Exam: NORMAL INSPECTION, NORMOCEPHALIC - Eye Exam Eye Exam: Normal appearance - ENT Exam ENT Exam: Mucous Membranes Dry - Respiratory Exam Respiratory Exam: Decreased Breath Sounds, NORMAL BREATHING PATTERN - Cardiovascular Exam Cardiovascular Exam: +S1, +S2 Additional comments: right chest port left IJ permacath catheter - GI/Abdominal Exam GI & Abdominal Exam: Soft, Normal Bowel Sounds Additional comments: colostomy - Extremities Exam Additional comments: 3-4+ edema - Neurological Exam Neurological Exam: Alert, Awake - Psychiatric Exam Psychiatric exam: Normal Affect, Normal Mood - Skin Skin Exam: Dry, Normal Color, Warm Assessment and Plan - Assessment and Plan (Free Text) Assessment: A 62 year old morbidly obese female who got transferred to [facility] ER from halfway due to altered mental status. Patient is known to service from previous multiple admissions. History of coronary artery disease with stent of circumflex,hypertension,hyperlipidemia,diabetes,sleep apnea,COPD, congestive heart failure, DVT/PE. History of bowel resection in the past with colostomy. She was admitted to [facility] due to small bowel obstruction and on 04/16/18 she had explor-lap and lysis of adhesions and ventral hernia repair with revision of colostomy (Dr. Mckeon).Postoperatively, patient had infection involving the mesh placed for the hernia repair and it was recommended that she undergo an additional procedure to have the mesh removed however patient refused surgical procedure. She was stablized and transferred to [facility]. Chest X ray showed severe cardiomegaly,moderate to severe pulmonary congestion.Not in respiratory distress, On nasal cannula 4l/min. Troponin 0.14/.15, denies chest pain, EKG- normal sinus rhythm, elevated troponin due to renal insuffiency. Will treat medically. Surgical follow up for abdominal wound. Being followed up by Nephrology for worsening renal status. On hemodialysis. Permacath left IJ . Hemodialysis 3 x a week TTS. Cardiac status stable. Plan: For hemodialysis today (TTS) More awake, able to hold conversation No distress, no shortness of breath, on nasal cannula Cardiac status stable Controlled blood pressure On Hydralazine 100mg TID, Labetolol 200 mg TID, Losartan 25 mg daily, Eliquis 2.5 mg BID Catapres 0.3mg/24 hours every week,Solumedrol 30 mg daily, Continue current treatment Continue current medications Clinically improved and stable Discharge planning,[facility] with hemodialysis Will follow up Plan and treatment discussed with Dr. Guerrero
[2018-06-06] MEDS: Arformoterol 15 mcg/2 ml Inh Sol IH SCH ×2 (08:30→20:13)
[2018-06-06] MEDS: Budesonide 0.5 mg/2 ml Inhal Susp UD IH SCH ×2 (08:30→20:14)
[2018-06-06] MEDS: Acetylcysteine 20% Inhal Soln (4ml) IH SCH ×2 (08:30→20:13)
[2018-06-06 09:00] LABS: HEMOGLOBIN 8.5 g/dL (12.0-16.0); MEAN CELL VOLUME 98.7 fl (80.0-105.0); MEAN CORPUSCULAR HEMOGLOBIN 26.9 pg (25.0-35.0); MEAN CORPUSCULAR HGB CONC 27.2 g/dl (31.0-37.0); MEAN PLATELET VOLUME 9.8 fl (7.0-11.0); RBC 3.16 10^6/uL (3.5-6.1); RED CELL DISTRIBUTION WIDTH 18.6 % (11.5-14.5); WHITE BLOOD COUNT 8.6 10^3/uL (4.5-11.0)
[2018-06-06 09:23] LABS: ALB/GLOB RATIO 0.6 (1.1-1.8); ALBUMIN 2.5 g/dL (3.0-4.8); CALCIUM 8.3 mg/dL (8.4-10.5)
--- NOTE | 2018-06-06 09:34 | PN ---
DATE: 06/06/2018 SUBJECTIVE: The patient is 62-year-old female. She is stable. No complaints. Generally weak and waiting for rehab unit to accept her with dialysis. The patient note for 06/05/2018. PHYSICAL EXAMINATION: VITAL SIGNS: Temperature is 98.1, pulse rate 81, blood pressure 124/70, respirations 18. HEAD AND NECK: Normal. No JVD. No thyromegaly. CHEST: Clear bilateral. CARDIAC: First sound and second sound normal. ABDOMEN: Obese with colostomy on the right side and midline incisions with minimal discharge. EXTREMITIES: Mild edema. NEUROLOGIC: Normal. She is awake, alert, and oriented x3. She moving all extremities. LABORATORY DATA: White count 8.6, hemoglobin 9, hematocrit 32.2, and platelets 208. Chemistry shows sodium 134, potassium 4.1, chloride 98, bicarb 33, BUN 15, creatinine 2.1, and calcium 8. Liver function tests and alk phos 263. is normal. IMPRESSION: 1. Generalized weakness, deconditioning. The patient will need rehab unit. We are looking for rehab unit with dialysis. We will accept insurance. 2. Acute kidney injury on top of chronic, currently on renal replacement therapy. Continue current treatment. 3. Anemia, chronic deficiency. 4. Obstructive sleep apnea, morbid obesity. 5. Hypertension, controlled on multiple medications. 6. History of rectal cancer, with colostomy stable, no repairs. 7. Hypercholesteremia. 8. Chronic anxiety, agitations. PLAN: Continue current treatment. Followup clinically. Elroy Florian MD
[2018-06-06] MEDS: Magnesium Oxide 400 mg Tab UD PO SCH ×2 (10:35→17:51)
--- NOTE | 2018-06-06 12:15 | PN ---
DATE: 06/06/2018 PULMONARY PROGRESS NOTE REFERRING PHYSICIAN: Elroy Florian MD SUBJECTIVE: The patient seen in hemodialysis. No overnight events reported. Reports some bilateral lower extremity discomfort. No headache, rhinitis, cough, shortness of breath, chest pain, abdomina pain, nausea, vomiting, diarrhea or leg swelling reported. OBJECTIVE: GENERAL: No acute distress. VITAL SIGNS: Blood pressure 144/50, pulse 71, temperature 99 and oxygen saturation 97%. HEENT: Moist mucous membranes. Mallampati score of 4. Crowded airway. NECK: Supple. No JVD. LUNGS: Few rhonchi bilaterally. CARDIOVASCULAR: S1 and S2 audible. ABDOMEN: Soft, colostomy bag present with soft stool. Surgical abdominal wound with dressing in place. EXTREMITIES: Bilateral lower extremity edema. NEUROLOGIC: Awake, alert and verbal. Follows commands. MEDICATIONS: Reviewed. Tylenol 650 mg every 4 hours p.r.n. for mild pain, Mucomyst 4 mL inhalation twice a day, DuoNeb 3 mL inhalation every 6 hours p.r.n., Eliquis 2.5 mg twice a day, Brovana 15 mcg every 12 hours, Nuvigil 150 mg daily, aspirin 81 mg daily, Pulmicort 0.5 mg every 12 hours, calcium acetate 667 mg Mondays and Wednesdays, clonidine 0.1 mg every 6 hours, clonidine patch 0.3 mg every 7 days, Aranesp 150 mcg weekly, Colace 100 mg three times a day, hydralazine 10 mg four times a day p.r.n. for systolic blood pressure greater than 170, hydralazine 15 mg twice a day, Levemir 10 units subcutaneously at bedtime, Humulin R sliding scale a.c. and at bedtime, labetalol 200 mg three times a day, Lac-Hydrin cream topically to the affected area daily, losartan 100 mg daily, magnesium oxide 400 mg twice a day, Singulair 10 mg at bedtime, morphine sulfate 1 mg IV push every 4 hours p.r.n., multivitamin one tab daily, Protonix 40 mg at bedtime, prednisone 10 mg daily, Lyrica 15 mg twice a day, Risperdal 0.5 mg at bedtime, Risperdal 0.5 mg daily, saliva substitute five times a day p.r.n., [place] nasal spray every 2 hours p.r.n., Ambien 5 mg p.o. at bedtime p.r.n. LABORATORY DATA: Reviewed. WBC 8.6, RBC 3.16, hemoglobin 8.5, hematocrit 31.2 and platelets 238. Sodium 134, potassium 4.2, chloride 98, carbon dioxide 34, anion gap 6, BUN 22, creatinine 2.6, GFR 19, random glucose 89, calcium 8.3, total bilirubin 0.3, AST 37, ALT 17, alkaline phosphatase 228, total protein 6.5, albumin 2.5, globulin 3.9, albumin-globulin ratio 0.6. IMPRESSION AND PLAN: History of laparotomy for small bowel obstruction, chronic lung disease, sleep apnea syndrome, hypoventilation syndrome, renal failure requiring hemodialysis, history of pulmonary embolism, deep venous thrombosis. The patient is currently on anticoagulation therapy, pulmonary hypertension and morbid obesity. Continue bilevel positive airway pressure use at bedtime, head of bed elevated at 45 degrees, sleep apnea precaution, pressure ulcer precaution, gastric prophylaxis and deep venous thrombosis prophylaxis, continue daytime stimulant. The patient would benefit from physical therapy. Will add compression stockings for bilateral lower extremity edema. This patient was seen and examined with Dr. Ayala. Discussed assessment and plan as described above. Thank you for this consult and we will follow with you. Breezy Schafer APN Pamela Ayala MD ANT
[2018-06-06] MEDS: Morphine 2 mg/ml ISec IVP PRN (12:16)
[2018-06-06] MEDS: Multivitamin Therapeutic Tab PO SCH (12:17)
[2018-06-06] MEDS: Ammonium Lactate 12% Cream (140 g) TOP SCH (12:22)
--- NOTE | 2018-06-06 12:43 | CP.PCM.APN ---
Subjective - Date & Time of Evaluation Date of Evaluation: 06/06/18 Time of Evaluation: 12:33 - Subjective Subjective: pt seen ant bedside s/p hD session Review of Systems - Review of Systems All systems: reviewed and no additional remarkable complaints except - Constitutional Constitutional: Fatigue. absent: As Per HPI, Anorexia, Chills, Daytime Sleepiness, Excessive Sweating, Fever, Frequent Falls, Headache, Increased Appetite, Lethargy, Malaise, Night Sweats, Snoring, Sleep Apnea, Weight Gain, Weight Loss, Weakness, Other Objective - Vital Signs/Intake and Output Vital Signs (last 24 hours): Temp Pulse Resp BP Pulse Ox 98 F 78 20 132/60 97 06/06/18 05:59 06/06/18 12:16 06/06/18 05:59 06/06/18 12:16 06/06/18 05:59 Intake and Output: 06/06/18 06/06/18 06:59 18:59 Output Total 700 Balance -700 - Medications Medications: Current Medications Acetaminophen (Tylenol 325mg Tab) 650 mg PO Q4H PRN PRN Reason: Pain, Mild (1-3) Last Admin: 06/05/18 16:22 Dose: 650 mg Acetylcysteine (Acetylcysteine 20%) 4 ml IH BIDRESP [facility] Last Admin: 06/06/18 08:30 Dose: Not Given Albuterol/Ipratropium (Duoneb 3 Mg/0.5 Mg (3 Ml) Ud) 3 ml IH [id number] PRN PRN Reason: Shortness of Breath Last Admin: 06/05/18 15:28 Dose: 3 ml Apixaban (Eliquis) 2.5 mg PO BID [facility]; Protocol Last Admin: 06/06/18 10:34 Dose: Not Given Arformoterol Tartrate (Brovana) 15 mcg IH [id number] [facility] Last Admin: 06/06/18 08:30 Dose: Not Given Armodafinil (Nuvigil 150 Mg Tab) 150 mg PO DAILY [facility] Last Admin: 06/06/18 12:17 Dose: 150 mg Aspirin (Aspirin Chewable) 81 mg PO DAILY [facility] Last Admin: 06/06/18 12:17 Dose: 81 mg Budesonide (Pulmicort Respules) 0.5 mg IH [id number] [facility] Last Admin: 06/06/18 08:30 Dose: Not Given Calcium Acetate (Phoslo) 667 mg PO WM [facility] Last Admin: 06/06/18 12:17 Dose: 667 mg Clonidine HCl (Catapres) 0.1 mg PO Q6 PRN PRN Reason: Other Last Admin: 06/05/18 05:23 Dose: 0.1 mg Clonidine HCl (Catapres-Tts3 0.3 Mg/24 Hr) 1 patch TD Q7D@1000 [facility] Last Admin: 05/29/18 15:40 Dose: 1 patch Darbepoetin Timothy (Aranesp) 150 mcg SC QWK [facility] Last Admin: 06/04/18 13:54 Dose: 150 mcg Docusate Sodium (Colace) 100 mg PO TID [facility] Last Admin: 06/06/18 10:34 Dose: Not Given Hydralazine HCl (Apresoline) 50 mg PO BID [facility] Last Admin: 06/06/18 10:34 Dose: Not Given Hydralazine HCl (Apresoline) 10 mg PO QID PRN PRN Reason: For SBP>170 Insulin Detemir (Levemir) 10 unit SC [facility] Last Admin: 06/05/18 22:10 Dose: 10 u Insulin Human Regular (Humulin R Low) 0 units SC [facility]; Protocol Last Admin: 06/06/18 12:02 Dose: Not Given Labetalol HCl (Trandate) 200 mg PO TID [facility] Last Admin: 06/06/18 12:16 Dose: 200 mg Lactic Acid (Lac-Hydrin 12% Cream (140 G)) 1 ea TOP DAILY [facility] Last Admin: 06/06/18 12:22 Dose: 1 applic Losartan Potassium (Cozaar) 100 mg PO DAILY [facility] Last Admin: 06/06/18 12:17 Dose: 100 mg Magnesium Oxide (Mag-Ox) 400 mg PO BID [facility] Last Admin: 06/06/18 10:35 Dose: Not Given Montelukast Sodium (Singulair) 10 mg PO [facility] Last Admin: 06/05/18 22:25 Dose: 10 mg Morphine Sulfate (Morphine) 1 mg IVP Q4H PRN PRN Reason: Pain, severe (8-10) Last Admin: 06/06/18 12:16 Dose: 1 mg Multivitamins (Thera Tab) 1 tab PO 0800 [facility] Last Admin: 06/06/18 12:17 Dose: 1 tab Pantoprazole Sodium (Protonix Ec Tab) 40 mg PO HS [facility] Last Admin: 06/05/18 22:00 Dose: 40 mg Prednisone (Prednisone Tab) 10 mg PO DAILY [facility] Last Admin: 06/06/18 12:17 Dose: 10 mg Pregabalin (Lyrica) 50 mg PO BID [facility] Last Admin: 06/06/18 10:35 Dose: Not Given Risperidone (Risperdal Tab) 0.5 mg PO HS [facility]; Protocol Last Admin: 06/05/18 22:05 Dose: 0.5 mg Risperidone (Risperdal Tab) 0.5 mg PO DAILY [facility]; Protocol Last Admin: 06/06/18 12:17 Dose: 0.5 mg Saliva Substitute (Saliva Substitute) 0 ml PO 5XD PRN PRN Reason: DRY MOUTH Sodium Chloride ([place] Nasal [place]) 0 ml NS Q2H PRN PRN Reason: Nasal congestion Zolpidem Tartrate (Ambien) 5 mg PO HS PRN; Protocol PRN Reason: Insomnia Last Admin: 06/05/18 23:41 Dose: 5 mg - Labs Labs: 06/06/18 08:30 06/06/18 08:30 PT 12.5 SECONDS (9.4-12.5) 05/30/18 06:06 INR 1.09 05/30/18 06:06 APTT 27.1 Seconds (25.1-36.5) 05/30/18 06:06 - Constitutional Appears: No Acute Distress, Chronically Ill - Eye Exam Eye Exam: Normal appearance - ENT Exam ENT Exam: Mucous Membranes Moist - Respiratory Exam Respiratory Exam: Decreased Breath Sounds, NORMAL BREATHING PATTERN - Cardiovascular Exam Cardiovascular Exam: +S1, +S2 - GI/Abdominal Exam GI & Abdominal Exam: Soft Additional comments: colostomy intact - Psychiatric Exam Psychiatric exam: Normal Affect, Normal Mood - Skin Skin Exam: Dry, Intact Assessment and Plan - Assessment and Plan (Free Text) Plan: A/P 62 yr old female with pmh sig for htn, hld, unresectable colon ca sbo s/p abd surgery 04/14/18 with probable infection involving the mesh placed during the surgery now brought to the Er from [facility] for lethargy and fever now being evaluated by ID for abd wall cellulitis with initial cultures may 03 showing pseudomons and c. famata, latest cultures of 05/21 show no growth after 5 days, abdominal wound showing yeast species/ megan albicans pt with acute on chronic renal failure and now started on HD. pt awaiting HD slot at [facility] notes reviewed will continue to follow
--- NOTE | 2018-06-06 13:05 | CP.PCM.PN ---
Subjective - Date & Time of Evaluation Date of Evaluation: 06/06/18 Time of Evaluation: 13:02 - Subjective Subjective: Nephrology Consultation Note: Assessment: Stable SHELBI ? pre-renal/ATN versus AIN as also with peripheral eosinophilia and eosinolphiuria, started HD 05/28/18 pulmonary congestion with fluid overload. hypomag, hyperphosphatemia hyperkalemia SBO s/p ex lap with ? MESH infection AMS, delirium left adrenal adenoma, Rt renal hyperdense cyst chronic hypercapnic respi failure Diabetic chronic Kidney Disease (E11.22) Hypertensive Chronic Kidney Disease (I12.9) Chronic Kidney Disease (N18.3) Stage 3 with 2.4 gm proteinuria (R80.9) likely due to DM/HTN/Obesity Anemia Vit D def morbid obesity, CAD s/p stent, COPD/SUMMER, rectal ca s/p colostomy Plan HD as per TTS schedule. more urine output now, will start lasix and check 24 hr crcl HTN control on multiple meds. also on losartan now Monitor Input/Output, daily weights and renal function with basic metabolic panel PRBC as needed d/w heme and okay to use KAVYA from heme perspective. on weekly aransep supplement lytes as needed d/w ID re; concerns for AIN, eosinophilia and antibiotics. had d/c abx pt started on steroids empirically but will be hesitant to give them more than few days due to her co-morbidities and current clinical condition. pt not a candidate for kidney biopsy Adrenal adenoma work up with plasma renin/aldosterone, plasma metanephrine NEGATIVE. outpt 1 mg dexa suppression test repeat renal sono in 6 months to assess her Rt renal cyst Dose meds/antibiotics for reduced GFR. Avoid fleets enema/magnesium based laxatives. Avoid nephrotoxins/NSAIDs/ iodinated contrast (unless needed emergently) Glycemic control Further work up/management as per primary team overall prognosis poor/guarded. d/c planning to SNF, likely with outpt HD need atleast in short term basis. will continue to monitor for renal recovery Thanks for allowing me to participate in care of your patient. Will follow patient with you. Please call if any Qs. had d/w team Dr Dae Dawn Office: [phone] Chief Complaint;AMS Reason for consult: Acute Kidney Injury, CKD 3 HPI: Pt is a 62 F with hx of diabetes Mellitus (15 years), hypertension (years), CKD 3 with baseline cr 1.2-1.3 recently admitted after complicated abdominal surgery that represents w/ abdominal pain. Was recommended to get mesh removed last admission but refusing and still refusing per surgical service. She does not know why she is in the hospital. She denies n/v. She endorses reduced po intake. ROS: pt not able to provide much reliably. confusion better though. she is more awake. more urine output 700 mL Physical Examination: General Appearance: comfortable, morbidly obese. not in acute respi distress Vitals reviewed and noted as below Head; Atraumatic, normocephalic EYES: Pupils are equal, round and reactive to light accommodation. Eye muscles and extraocular movement intact. Sclera is anicteric. Neck; supple no lymphadenopathy, no thyromegaly or bruit Lungs: improved respiratory rate/effort. Breath sounds bilateral equal, diminished at bases but overall limited exam due to her obesity Heart: normal rate. s1s2 normal. No rub or gallop. Extremities: 2+ edema, No varicose veins Neurological: Patient is more awake and alert less confused Skin: Warm and dry. Normal turgor. No rash. Palpitation: Normal elasticity for age Abdomen: Abdomen is + colostomy. midline donita + Psych: deferred MSK: no joint tenderness or swelling. Digits and nails normal, no deformity : kidney or bladder not palpable. left IJ PC + rt side criss cath Labs/imaging reviewed. Past medical history, past surgical history, family history, social history, allergy reviewed and noted as below Family hx: no hx of CKD. Rest non-contributory Objective - Vital Signs/Intake and Output Vital Signs (last 24 hours): Temp Pulse Resp BP Pulse Ox 98 F 78 20 132/60 97 06/06/18 05:59 06/06/18 12:16 06/06/18 05:59 06/06/18 12:16 06/06/18 05:59 Intake and Output: 06/06/18 06/06/18 06:59 18:59 Output Total 700 Balance -700 - Medications Medications: Current Medications Acetaminophen (Tylenol 325mg Tab) 650 mg PO Q4H PRN PRN Reason: Pain, Mild (1-3) Last Admin: 06/05/18 16:22 Dose: 650 mg Acetylcysteine (Acetylcysteine 20%) 4 ml IH BIDRESP [facility] Last Admin: 06/06/18 08:30 Dose: Not Given Albuterol/Ipratropium (Duoneb 3 Mg/0.5 Mg (3 Ml) Ud) 3 ml IH [id number] PRN PRN Reason: Shortness of Breath Last Admin: 06/05/18 15:28 Dose: 3 ml Apixaban (Eliquis) 2.5 mg PO BID [facility]; Protocol Last Admin: 06/06/18 10:34 Dose: Not Given Arformoterol Tartrate (Brovana) 15 mcg IH [id number] [facility] Last Admin: 06/06/18 08:30 Dose: Not Given Armodafinil (Nuvigil 150 Mg Tab) 150 mg PO DAILY [facility] Last Admin: 06/06/18 12:17 Dose: 150 mg Aspirin (Aspirin Chewable) 81 mg PO DAILY [facility] Last Admin: 06/06/18 12:17 Dose: 81 mg Budesonide (Pulmicort Respules) 0.5 mg IH [id number] [facility] Last Admin: 06/06/18 08:30 Dose: Not Given Calcium Acetate (Phoslo) 667 mg PO WM [facility] Last Admin: 06/06/18 12:17 Dose: 667 mg Clonidine HCl (Catapres) 0.1 mg PO Q6 PRN PRN Reason: Other Last Admin: 06/05/18 05:23 Dose: 0.1 mg Clonidine HCl (Catapres-Tts3 0.3 Mg/24 Hr) 1 patch TD Q7D@1000 [facility] Last Admin: 05/29/18 15:40 Dose: 1 patch Darbepoetin Timothy (Aranesp) 150 mcg SC QWK [facility] Last Admin: 06/04/18 13:54 Dose: 150 mcg Docusate Sodium (Colace) 100 mg PO TID [facility] Last Admin: 06/06/18 10:34 Dose: Not Given Hydralazine HCl (Apresoline) 50 mg PO BID [facility] Last Admin: 06/06/18 10:34 Dose: Not Given Hydralazine HCl (Apresoline) 10 mg PO QID PRN PRN Reason: For SBP>170 Insulin Detemir (Levemir) 10 unit SC [facility] Last Admin: 06/05/18 22:10 Dose: 10 u Insulin Human Regular (Humulin R Low) 0 units SC ACHS [facility]; Protocol Last Admin: 06/06/18 12:02 Dose: Not Given Labetalol HCl (Trandate) 200 mg PO TID [facility] Last Admin: 06/06/18 12:16 Dose: 200 mg Lactic Acid (Lac-Hydrin 12% Cream (140 G)) 1 ea TOP DAILY [facility] Last Admin: 06/06/18 12:22 Dose: 1 applic Losartan Potassium (Cozaar) 100 mg PO DAILY [facility] Last Admin: 06/06/18 12:17 Dose: 100 mg Magnesium Oxide (Mag-Ox) 400 mg PO BID [facility] Last Admin: 06/06/18 10:35 Dose: Not Given Montelukast Sodium (Singulair) 10 mg PO HS [facility] Last Admin: 06/05/18 22:25 Dose: 10 mg Morphine Sulfate (Morphine) 1 mg IVP Q4H PRN PRN Reason: Pain, severe (8-10) Last Admin: 06/06/18 12:16 Dose: 1 mg Multivitamins (Thera Tab) 1 tab PO 0800 [facility] Last Admin: 06/06/18 12:17 Dose: 1 tab Pantoprazole Sodium (Protonix Ec Tab) 40 mg PO HS [facility] Last Admin: 06/05/18 22:00 Dose: 40 mg Prednisone (Prednisone Tab) 10 mg PO DAILY [facility] Last Admin: 06/06/18 12:17 Dose: 10 mg Pregabalin (Lyrica) 50 mg PO BID [facility] Last Admin: 06/06/18 10:35 Dose: Not Given Risperidone (Risperdal Tab) 0.5 mg PO HS [facility]; Protocol Last Admin: 06/05/18 22:05 Dose: 0.5 mg Risperidone (Risperdal Tab) 0.5 mg PO DAILY [facility]; Protocol Last Admin: 06/06/18 12:17 Dose: 0.5 mg Saliva Substitute (Saliva Substitute) 0 ml PO 5XD PRN PRN Reason: DRY MOUTH Sodium Chloride ([place] Nasal [place]) 0 ml NS Q2H PRN PRN Reason: Nasal congestion Zolpidem Tartrate (Ambien) 5 mg PO HS PRN; Protocol PRN Reason: Insomnia Last Admin: 06/05/18 23:41 Dose: 5 mg - Labs Labs: 06/06/18 08:30 06/06/18 08:30 PT 12.5 SECONDS (9.4-12.5) 05/30/18 06:06 INR 1.09 05/30/18 06:06 APTT 27.1 Seconds (25.1-36.5) 05/30/18 06:06
--- NOTE | 2018-06-06 14:25 | PN ---
DATE: 06/06/2018 SUBJECTIVE: The patient is a 62-year-old [place] female, who has been exhibiting problematic behavior including incessant crying out. Presently, she is alert, much more cooperative and interactive, although there is a language barrier. She denies any distress and is not acting in an agitated or bizarre manner, which are welcome improvements in her general, mental, behavioral and clinical state. Blood pressure 135, pulse 98. She is undergoing treatment for an abdominal wall cellulitis with a probable infected abdominal mesh. She has unresectable rectal cancer status post chemotherapy and radiation therapy, status post colostomy, status post Port-A-Cath placement. She is morbidly obese. She has obstructive sleep apnea. The patient is on dialysis with her overall prognosis considered to be poor. She is reportedly slept well throughout this past night. Eusebio Mendoza MD/ PhD
[2018-06-06 16:18] VITALS: O2SAT 99
--- NOTE | 2018-06-06 17:56 | PN ---
DATE: 06/06/2018 SUBJECTIVE: The patient is in bed, in no acute distress. PHYSICAL EXAMINATION: VITAL SIGNS: Temperature is 98, blood pressure is 130/60, respiratory rate of 18. HEENT: Unremarkable. NECK: Supple. LUNGS: Have decreased breath sounds. HEART: Normal S1 and S2. ABDOMEN: Soft, nontender. LABORATORY EXAMINATION: Reveals a white count of 8.6, hemoglobin of 8.5. Chemistries are noted. Creatinine is 2.6. Urinalysis is noted. Serology is reviewed. ASSESSMENT AND PLAN: A 62-year-old female with abdominal wall cellulitis infected abdominal mesh on recent cultures. The patient with morbid obesity with a body mass index of 42 and chronic obstructive lung disease and vancomycin-resistant enterococcus urinary tract infection, diabetes, hypertension, coronary artery disease, acute renal failure status post hemodialysis catheter placement, eosinophilia, off of antibiotics and review of orders reveals the patient to be off of antibiotics. We will follow closely with you. Lawrence Cheek MD
--- NOTE | 2018-06-06 19:07 | PN ---
DATE: 06/06/2018 REASON FOR CONSULTATION AND FOLLOWUP: Cardiac evaluation, history of congestive heart failure, transferred from the shelter with lethargy, chronic kidney disease, acute kidney disease status post dialysis. Much awake and alert. This note is an addition to dictated by the nurse practitioner, Tiffanie Osborne. SUBJECTIVE: A 62-year-old female, morbidly obese, history of anorectal cancer, status post colostomy, history of small bowel obstruction in 04/2018 status post abdominal surgery, infection of anterior abdominal wall at the surgical site, history of coronary artery disease, history of stent in the circumflex in the past, admitted with altered mental status, acute kidney injury, now the patient is on dialysis, much awake, and alert. The patient was on a lot of antihypertensive medications and the blood pressure is lower, so medicine has been adjusted. Actually, the patient was at one point on hydralazine 100 mg p.o. three times a day, which is discontinued and changed to hydralazine 50 b.i.d. and p.r.n., clonidine patch, and also the patient is on losartan. Follow up discharge planning. The patient also has a history of DVT/PE, and the patient is back on Eliquis 2.5 mg b.i.d. We will follow with you. Thank you Dr. Florian for providing us the opportunity in taking care of Pedro Guevara. Possible discharge planning. Pamela Guerrero MD
--- NOTE | 2018-06-06 19:46 | VASCULAR ---
Ultrasound and fluoroscopically guided insertion of left internal jugular vein non tunneled dialysis catheter History: 62-year-old female with renal failure. Comparison: None. Anesthesia: Local lidocaine. Procedure findings: The procedure was explained to the patient's family member with relative risks and benefits. Informed consent was obtained. The patient was positioned supine on the angiographic table. Continuous physiologic monitoring was provided by the interventional radiology nurse. The left neck region was prepped and draped in the usual sterile technique. Under direct ultrasound guidance, the left internal jugular vein was accessed using a 21 gauge micropuncture needle. A permanent image was stored. A 0.018 inch wire was introduced through the needle into the SVC. The micropuncture needle was then exchanged for a 4 Slov[place] transition catheter. A stiff guidewire was introduced through the transition catheter into the SVC. A permanent image was stored. The transition catheter was then removed and serial fascial dilators were introduced into the left neck extending up to the venotomy site. Subsequently, a 14 Slovak, 15 centimeter dual lumen non tunneled dialysis catheter was introduced into the left internal jugular vein under fluoroscopic guidance. The catheter flushed with normal saline and heparin. A subsequent chest image demonstrated no pneumothorax and confirmed the location of the distal tip of the catheter at the SVC/right atrial junction. The patient tolerated the procedure well without any incident. The patient was transferred from the interventional Radiology department in stable condition. Impression: Successful introduction of a left internal jugular vein non tunneled dialysis catheter.
[2018-06-06] MEDS: Pantoprazole 40 mg EC Tab PO SCH (21:24)
[2018-06-06] MEDS: Insulin Detemir 100 units/ml Vial (Levemir) SC SCH (22:34)
--- NOTE | 2018-06-07 01:11 | PN ---
DATE: 06/06/2018 This is [facility]'s hospital visit on the telemetry floor. For Dr. Faye. SUBJECTIVE: The patient is a 62-year-old female, lying somnolent but arousable in bed with discharge/transfer on hold with the patient continuing her treatment as per her attending and consultants as above. The patient is otherwise in no acute distress. PHYSICAL EXAMINATION VITAL SIGNS: Temperature 97.9, pulse 76, respirations 19, blood pressure 145/52, pulse ox 99%. HEENT: Unremarkable. NECK: Supple. HEART: Regular rate. LUNGS: Minimal decreased breath sounds at the bases. ABDOMEN: Obese and soft with viable colostomy and dressings postsurgical. EXTREMITIES: +1 edema of the hands and feet. NEUROLOGIC: Somnolent but arousable. SKIN: Warm and dry with possible early decub in the sacrum. LABORATORY DATA: The patient's labs were done. White blood cell count 8.6, hemoglobin 8.5, hematocrit up to 31.2, platelet count 238,000 with the metabolic panel showing a BUN of 22, creatinine of 2.6, nonfasting glucose of 136, AST of 37. ASSESSMENT: For this patient is that of chronic kidney disease with acute renal failure, on dialysis, with anemia of chronic disease; history of congestive heart failure; status post colostomy revision with hernia repair; hypertension; deep venous thrombosis; pulmonary embolism; sleep apnea; rectal cancer; history of recent myocardial infarction; deconditioning; anxiety and diabetes mellitus. PLAN: The plan for this patient is to continue present medical regimen with her blood sugars now improved with continuation of further treatment as per business risk consultant's recommendations. We will monitor clinically with labs. This is a complex patient with a comprehensive medically necessary and appropriate visit carried out in excess of 15 minutes with the patient's case reviewed with consultants. Zuhair Herrera MD
[2018-06-07] MEDS: Morphine 2 mg/ml ISec IVP PRN ×2 (01:47→14:22)
--- NOTE | 2018-06-07 06:50 | CP.PCM.PN ---
Subjective - Date & Time of Evaluation Date of Evaluation: 06/07/18 Time of Evaluation: 06:15 - Subjective Subjective: Alert, Awake, Lying in bed, no distress, feels okay,wanted to have a shower Reason for consultation and follow up: Cardiac evaluation of history of congestive heart failure, transferred from [facility] due to lethargy, chronic kidney disease, on hemodialysis Seen and examined by me and Dr. Guerrero Objective - Vital Signs/Intake and Output Vital Signs (last 24 hours): Temp Pulse Resp BP Pulse Ox 97.9 F 86 20 126/48 L 99 06/07/18 06:00 06/07/18 06:00 06/07/18 06:00 06/07/18 06:00 06/06/18 12:00 Intake and Output: 06/06/18 06/07/18 18:59 06:59 Intake Total 120 Balance 120 - Medications Medications: Current Medications Acetaminophen (Tylenol 325mg Tab) 650 mg PO Q4H PRN PRN Reason: Pain, Mild (1-3) Last Admin: 06/05/18 16:22 Dose: 650 mg Acetylcysteine (Acetylcysteine 20%) 4 ml IH BIDRESP [facility] Last Admin: 06/06/18 20:13 Dose: 4 ml Albuterol/Ipratropium (Duoneb 3 Mg/0.5 Mg (3 Ml) Ud) 3 ml IH [id number] PRN PRN Reason: Shortness of Breath Last Admin: 06/05/18 15:28 Dose: 3 ml Apixaban (Eliquis) 2.5 mg PO BID [facility]; Protocol Last Admin: 06/06/18 17:51 Dose: 2.5 mg Arformoterol Tartrate (Brovana) 15 mcg IH [id number] [facility] Last Admin: 06/06/18 20:13 Dose: 15 mcg Armodafinil (Nuvigil 150 Mg Tab) 150 mg PO DAILY [facility] Last Admin: 06/06/18 12:17 Dose: 150 mg Aspirin (Aspirin Chewable) 81 mg PO DAILY [facility] Last Admin: 06/06/18 12:17 Dose: 81 mg Budesonide (Pulmicort Respules) 0.5 mg IH [id number] [facility] Last Admin: 06/06/18 20:14 Dose: 0.5 mg Calcium Acetate (Phoslo) 667 mg PO WM [facility] Last Admin: 06/06/18 17:51 Dose: 667 mg Clonidine HCl (Catapres) 0.1 mg PO Q6 PRN PRN Reason: Other Last Admin: 06/05/18 05:23 Dose: 0.1 mg Clonidine HCl (Catapres-Tts3 0.3 Mg/24 Hr) 1 patch TD Q7D@1000 [facility] Last Admin: 05/29/18 15:40 Dose: 1 patch Darbepoetin Timothy (Aranesp) 150 mcg SC QWK [facility] Last Admin: 06/04/18 13:54 Dose: 150 mcg Docusate Sodium (Colace) 100 mg PO TID [facility] Last Admin: 06/06/18 17:51 Dose: 100 mg Furosemide (Lasix) 80 mg IVP QPM [facility] Stop: 06/09/18 18:01 Last Admin: 06/06/18 17:50 Dose: 80 mg Hydralazine HCl (Apresoline) 50 mg PO BID [facility] Last Admin: 06/06/18 17:51 Dose: 50 mg Hydralazine HCl (Apresoline) 10 mg PO QID PRN PRN Reason: For SBP>170 Insulin Detemir (Levemir) 10 unit SC [facility] Last Admin: 06/06/18 22:34 Dose: Not Given Insulin Human Regular (Humulin R Low) 0 units SC [facility]; Protocol Last Admin: 06/06/18 22:33 Dose: Not Given Labetalol HCl (Trandate) 200 mg PO TID [facility] Last Admin: 06/06/18 17:51 Dose: 200 mg Lactic Acid (Lac-Hydrin 12% Cream (140 G)) 1 ea TOP DAILY [facility] Last Admin: 06/06/18 12:22 Dose: 1 applic Losartan Potassium (Cozaar) 100 mg PO DAILY [facility] Last Admin: 06/06/18 12:17 Dose: 100 mg Magnesium Oxide (Mag-Ox) 400 mg PO BID [facility] Last Admin: 06/06/18 17:51 Dose: 400 mg Montelukast Sodium (Singulair) 10 mg PO HS [facility] Last Admin: 06/06/18 21:24 Dose: 10 mg Morphine Sulfate (Morphine) 1 mg IVP Q4H PRN PRN Reason: Pain, severe (8-10) Last Admin: 06/07/18 01:47 Dose: 1 mg Multivitamins (Thera Tab) 1 tab PO 0800 [facility] Last Admin: 06/06/18 12:17 Dose: 1 tab Pantoprazole Sodium (Protonix Ec Tab) 40 mg PO HS [facility] Last Admin: 06/06/18 21:24 Dose: 40 mg Pregabalin (Lyrica) 50 mg PO BID [facility] Last Admin: 06/06/18 17:51 Dose: 50 mg Risperidone (Risperdal Tab) 0.5 mg PO HS [facility]; Protocol Last Admin: 06/06/18 21:24 Dose: 0.5 mg Risperidone (Risperdal Tab) 0.5 mg PO DAILY [facility]; Protocol Last Admin: 06/06/18 12:17 Dose: 0.5 mg Saliva Substitute (Saliva Substitute) 0 ml PO 5XD PRN PRN Reason: DRY MOUTH Sodium Chloride ([place] Nasal [place]) 0 ml NS Q2H PRN PRN Reason: Nasal congestion Zolpidem Tartrate (Ambien) 5 mg PO HS PRN; Protocol PRN Reason: Insomnia Last Admin: 06/05/18 23:41 Dose: 5 mg - Labs Labs: 06/06/18 08:30 06/06/18 08:30 PT 12.5 SECONDS (9.4-12.5) 05/30/18 06:06 INR 1.09 05/30/18 06:06 APTT 27.1 Seconds (25.1-36.5) 05/30/18 06:06 - Constitutional Appears: Non-toxic, No Acute Distress - Head Exam Head Exam: NORMAL INSPECTION, NORMOCEPHALIC - Eye Exam Eye Exam: Normal appearance - ENT Exam ENT Exam: Mucous Membranes Moist - Respiratory Exam Respiratory Exam: Decreased Breath Sounds, Clear to Ausculation Bilateral, NORMAL BREATHING PATTERN - Cardiovascular Exam Cardiovascular Exam: +S1, +S2 Additional comments: left IJ permacath Right chest port/accessed - GI/Abdominal Exam GI & Abdominal Exam: Soft, Normal Bowel Sounds Additional comments: colostomy - Exam Additional comments: ESRD on hemodialysis - Extremities Exam Additional comments: 3-4+edema - Neurological Exam Neurological Exam: Alert, Awake - Psychiatric Exam Psychiatric exam: Normal Affect, Normal Mood - Skin Skin Exam: Dry, Normal Color, Warm Assessment and Plan - Assessment and Plan (Free Text) Assessment: A 62 year old morbidly obese female who got transferred to [facility] due to altered mental status. Patient is known to service from previous multiple admissions. History of coronary artery disease with stent of circumflex,hypertension,hyperlipidemia,diabetes,sleep apnea,COPD, congestive heart failure, DVT/PE. History of bowel resection in the past with colostomy. She was admitted to [facility] due to small bowel obstruction and on 04/16/18 she had explor-lap and lysis of adhesions and ventral hernia repair with revision of colostomy (Dr. Mckeon).Postoperatively, patient had infection involving the mesh placed for the hernia repair and it was recommended that she undergo an additional procedure to have the mesh removed however patient refused surgical procedure. She was stablized and transferred to [facility]. Chest X ray showed severe cardiomegaly,moderate to severe pulmonary congestion.Not in respiratory distress, On nasal cannula 4l/min. Troponin 0.14/.15, denies chest pain, EKG- normal sinus rhythm, elevated troponin due to renal insuffiency. Will treat medically. Surgical follow up for abdominal wound. Being followed up by Nephrology for worsening renal status. On hemodialysis. Permacath left IJ . Hemodialysis 3 x a week TTS. Cardiac status stable. Plan: Cardiac status stable No distress, no shortness of breath, on nasal cannula On hemodialysis (TTS) Controlled blood pressure and heart rate On Hydralazine 100mg TID, Labetolol 200 mg TID, Losartan 25 mg daily, Eliquis 2.5 mg BID Catapres 0.3mg/24 hours every week,Solumedrol 30 mg daily, Continue current treatment Continue current medications Clinically improved and stable controlled glucose Discharge planning,[facility] with hemodialysis Awaiting placement Will follow up Plan and treatment discussed with Dr. Guerrero
[2018-06-07 06:51] LABS: BASO # 0.01 K/mm3 (0.0-2.0); BASO % 0.1 % (0.0-3.0); EOS # 0.5 (0.0-0.7); EOS % 5.3 % (1.5-5.0); GRAN # 6.32 (1.4-6.5); GRAN % 69.2 % (50.0-68.0); HEMOGLOBIN 8.8 g/dL (12.0-16.0); LYMPH # 1.4 (1.2-3.4); LYMPH % 15.1 % (22.0-35.0); MEAN CELL VOLUME 98.4 fl (80.0-105.0); MEAN CORPUSCULAR HEMOGLOBIN 27.3 pg (25.0-35.0); MEAN CORPUSCULAR HGB CONC 27.8 g/dl (31.0-37.0); MEAN PLATELET VOLUME 9.6 fl (7.0-11.0); MONO # 0.9 (0.1-0.6); MONO % 10.3 % (1.0-6.0); RBC 3.22 10^6/uL (3.5-6.1); RED CELL DISTRIBUTION WIDTH 18.4 % (11.5-14.5); WHITE BLOOD COUNT 9.1 10^3/uL (4.5-11.0)
[2018-06-07] MEDS: Insulin Reg-LOW-Coverage SC SCH ×2 (08:05→12:21)
[2018-06-07] MEDS: Multivitamin Therapeutic Tab PO SCH (08:23)
[2018-06-07] MEDS: Acetylcysteine 20% Inhal Soln (4ml) IH SCH (08:29)
[2018-06-07] MEDS: Arformoterol 15 mcg/2 ml Inh Sol IH SCH (08:29)
[2018-06-07] MEDS: Budesonide 0.5 mg/2 ml Inhal Susp UD IH SCH (08:29)
--- NOTE | 2018-06-07 10:39 | PN ---
DATE: 06/07/2018 REASON FOR CONSULTATION AND FOLLOWUP: Cardiac evaluation; history of congestive heart failure; transferred from the [place] [facility] with lethargy; chronic renal insufficiency and acute kidney injury on dialysis. SUBJECTIVE: The patient feels a lot better. OBJECTIVE: Not in apparent distress. This note is in addition to dictated by nurse practitioner, Tiffanie Osborne. LABORATORY DATA: The patient has pertinent significant lab results. Hemoglobin 8.8, hematocrit 31.2, and platelet count 243. Sodium 133, BUN 16, and creatinine 2.1. IMPRESSION: A 62-year-old morbidly obese female with history of deep vein thrombosis and pulmonary embolism in the past; history of coronary artery disease; history of intestinal obstruction, status post abdominal surgery; history of rectal cancer, status post colostomy; admitted with lethargy and acute kidney injury, on dialysis. Much awake and alert. Awaiting for placement, to be discharged to the [place] [facility]. RECOMMENDATIONS: In the interim, continue Eliquis, continue losartan. Blood pressure is improving after having been dialyzed. So, we will cut down the antihypertensive medication to prevent hypotension. Initially, the patient was on hydralazine 100 mg p.o. t.i.d., was cut down to 50, now we will cut down to 25 p.o. b.i.d. to prevent hypotension. Continue clonidine patch, continue baby aspirin, and the patient will continue losartan. We will follow with you. We will decrease hydralazine from 50 b.i.d. to 25 b.i.d., initially it was 100 t.i.d. Now since the patient started dialysis, requiring less antihypertensive medication, we will adjust accordingly. Continue Eliquis for DVT and PE. Thank you Dr. Florian for providing us the opportunity in taking care of the patient, Pedro Guevara. Pamela Guerrero MD
[2018-06-07] MEDS: Magnesium Oxide 400 mg Tab UD PO SCH (10:56)
[2018-06-07] MEDS: Ammonium Lactate 12% Cream (140 g) TOP SCH (10:58)
--- NOTE | 2018-06-07 11:26 | PN ---
DATE: 06/07/2018 PULMONARY PROGRESS NOTE REFERRING PHYSICIAN: Dr. Florian. SUBJECTIVE: The patient is lying in bed, head of bed elevated. Patient reports feeling well today. Did not use CPAP machine last night. No headache, rhinitis, cough, shortness of breath, chest pain, abdomina pain, nausea, vomiting, diarrhea or leg pain reported. OBJECTIVE: GENERAL: No acute distress. VITAL SIGNS: Blood pressure 124/48, pulse 86, temperature 97.9. HEENT: Moist mucous membranes. Mallampati score of 4. Crowded airway. NECK: Supple. No JVD. LUNGS: Few rhonchi bilaterally. CARDIOVASCULAR: S1 and S2 audible. ABDOMEN: Soft, colostomy bag present with soft stool. Surgical abdominal wound with dressing in place. EXTREMITIES: Bilateral lower extremity edema. NEUROLOGIC: Awake, alert and verbal. Follows commands. MEDICATIONS: Reviewed. Tylenol 650 every 4 hours p.r.n., Mucomyst 4 mL inhalation twice a day, DuoNeb 3 mL inhalation every 6 hours p.r.n., Eliquis 2.5 mg p.o. twice a day, Brovana 15 mcg every 12 hours, Nuvigil 150 mg daily, aspirin 81 mg daily, Pulmicort 0.5 mg every 12 hours, calcium acetate 667 mg Mondays and Wednesdays, clonidine 0.1 mg every 6 hours p.r.n., clonidine patch 0.3 mg every 7 days, Aranesp 150 mcg weekly, Colace 100 mg three times a day, Lasix 80 mg IV push in the evening, hydralazine 10 mg four times a day p.r.n. for systolic BP greater than 170, hydralazine 25 mg twice a day, Levemir 10 units subcutaneously at bedtime, Humulin R sliding scale a.c. and at bedtime, labetalol 200 mg three times a day, Lac-Hydrin cream topically to the affected area, Cozaar 100 mg daily, magnesium oxide 400 mg twice a day, Singulair 10 mg at bedtime, morphine 1 mg every 4 hours p.r.n. severe pain, multivitamin one tab daily, pantoprazole 40 mg at bedtime, Lyrica 50 mg twice a day, Risperdal 0.5 mg at bedtime, Risperdal 0.5 mg daily, saliva substitute five times a day p.r.n., [place] nasal spray every 2 hours p.r.n., Ambien 5 mg at bedtime p.r.n. LABORATORY DATA: Reviewed. WBC 9.1, RBC 3.22, hemoglobin 8.8, hematocrit 31.7 and platelets 243. Sodium 133, potassium 4.5, chloride 98, carbon dioxide 33, anion gap 7, BUN 16, creatinine 2.1, GFR 24, POC glucose 106, random glucose 111, calcium 8. IMPRESSION AND PLAN: History of laparotomy for small bowel obstruction, chronic lung disease, sleep apnea syndrome, hypoventilation syndrome, renal failure requiring hemodialysis, history of pulmonary embolism, deep venous thrombosis, currently on anticoagulation therapy, pulmonary hypertension and morbid obesity. Pulmonary point of view, continue BiPAP use at bedtime, head of bed elevated 45 degrees, sleep apnea precaution, pressure ulcer precaution, gastric prophylaxis and deep venous thrombosis prophylaxis. Continue daytime stimulant. I discuss with patient and encourage the BiPAP use at bedtime. Patient verbalize understanding. Patient will benefit from physical therapy. This patient was seen and examined with Dr. Ayala. Discussed assessment and plan as described above. Thank you for this consult and we will follow with you. Breezy Schafer APN Pamela Ayala MD
[2018-06-07 12:29] VITALS: BP 144/54; RESP 14; TEMP 99.4
--- NOTE | 2018-06-07 12:49 | CP.PCM.PN ---
Subjective - Date & Time of Evaluation Date of Evaluation: 06/07/18 Time of Evaluation: 11:00 - Subjective Subjective: No fevers, non-toxic. Objective - Vital Signs/Intake and Output Vital Signs (last 24 hours): Temp Pulse Resp BP Pulse Ox 97.9 F 86 20 126/48 L 99 06/07/18 06:00 06/07/18 06:00 06/07/18 06:00 06/07/18 06:00 06/06/18 12:00 Intake and Output: 06/07/18 06/07/18 06:59 18:59 Intake Total 120 Balance 120 - Medications Medications: Current Medications Acetaminophen (Tylenol 325mg Tab) 650 mg PO Q4H PRN PRN Reason: Pain, Mild (1-3) Last Admin: 06/05/18 16:22 Dose: 650 mg Acetylcysteine (Acetylcysteine 20%) 4 ml IH BIDRESP [facility] Last Admin: 06/07/18 08:29 Dose: 4 ml Albuterol/Ipratropium (Duoneb 3 Mg/0.5 Mg (3 Ml) Ud) 3 ml IH [id number] PRN PRN Reason: Shortness of Breath Last Admin: 06/05/18 15:28 Dose: 3 ml Apixaban (Eliquis) 2.5 mg PO BID [facility]; Protocol Last Admin: 06/06/18 17:51 Dose: 2.5 mg Arformoterol Tartrate (Brovana) 15 mcg IH [id number] [facility] Last Admin: 06/07/18 08:29 Dose: 15 mcg Armodafinil (Nuvigil 150 Mg Tab) 150 mg PO DAILY [facility] Last Admin: 06/06/18 12:17 Dose: 150 mg Aspirin (Aspirin Chewable) 81 mg PO DAILY [facility] Last Admin: 06/06/18 12:17 Dose: 81 mg Budesonide (Pulmicort Respules) 0.5 mg IH [id number] [facility] Last Admin: 06/07/18 08:29 Dose: 0.5 mg Calcium Acetate (Phoslo) 667 mg PO WM [facility] Last Admin: 06/07/18 08:23 Dose: 667 mg Clonidine HCl (Catapres) 0.1 mg PO Q6 PRN PRN Reason: Other Last Admin: 06/05/18 05:23 Dose: 0.1 mg Clonidine HCl (Catapres-Tts3 0.3 Mg/24 Hr) 1 patch TD Q7D@1000 [facility] Last Admin: 05/29/18 15:40 Dose: 1 patch Darbepoetin Timothy (Aranesp) 150 mcg SC QWK [facility] Last Admin: 06/04/18 13:54 Dose: 150 mcg Docusate Sodium (Colace) 100 mg PO TID [facility] Last Admin: 06/06/18 17:51 Dose: 100 mg Furosemide (Lasix) 80 mg IVP QPM [facility] Stop: 06/09/18 18:01 Last Admin: 06/06/18 17:50 Dose: 80 mg Hydralazine HCl (Apresoline) 10 mg PO QID PRN PRN Reason: For SBP>170 Hydralazine HCl (Apresoline) 25 mg PO BID [facility] Insulin Detemir (Levemir) 10 unit SC [facility] Last Admin: 06/06/18 22:34 Dose: Not Given Insulin Human Regular (Humulin R Low) 0 units SC [facility]; Protocol Last Admin: 06/07/18 08:05 Dose: Not Given Labetalol HCl (Trandate) 200 mg PO TID [facility] Last Admin: 06/06/18 17:51 Dose: 200 mg Lactic Acid (Lac-Hydrin 12% Cream (140 G)) 1 ea TOP DAILY [facility] Last Admin: 06/06/18 12:22 Dose: 1 applic Losartan Potassium (Cozaar) 100 mg PO DAILY [facility] Last Admin: 06/06/18 12:17 Dose: 100 mg Magnesium Oxide (Mag-Ox) 400 mg PO BID [facility] Last Admin: 06/06/18 17:51 Dose: 400 mg Montelukast Sodium (Singulair) 10 mg PO [facility] Last Admin: 06/06/18 21:24 Dose: 10 mg Morphine Sulfate (Morphine) 1 mg IVP Q4H PRN PRN Reason: Pain, severe (8-10) Last Admin: 06/07/18 01:47 Dose: 1 mg Multivitamins (Thera Tab) 1 tab PO 0800 [facility] Last Admin: 06/07/18 08:23 Dose: 1 tab Pantoprazole Sodium (Protonix Ec Tab) 40 mg PO [facility] Last Admin: 06/06/18 21:24 Dose: 40 mg Pregabalin (Lyrica) 50 mg PO BID [facility] Last Admin: 06/06/18 17:51 Dose: 50 mg Risperidone (Risperdal Tab) 0.5 mg PO HS [facility]; Protocol Last Admin: 06/06/18 21:24 Dose: 0.5 mg Risperidone (Risperdal Tab) 0.5 mg PO DAILY [facility]; Protocol Last Admin: 06/06/18 12:17 Dose: 0.5 mg Saliva Substitute (Saliva Substitute) 0 ml PO 5XD PRN PRN Reason: DRY MOUTH Sodium Chloride ([place] Nasal [place]) 0 ml NS Q2H PRN PRN Reason: Nasal congestion Zolpidem Tartrate (Ambien) 5 mg PO HS PRN; Protocol PRN Reason: Insomnia Last Admin: 06/05/18 23:41 Dose: 5 mg - Labs Labs: 06/07/18 06:00 06/07/18 06:00 PT 12.5 SECONDS (9.4-12.5) 05/30/18 06:06 INR 1.09 05/30/18 06:06 APTT 27.1 Seconds (25.1-36.5) 05/30/18 06:06 - Constitutional Appears: Chronically Ill - Head Exam Head Exam: NORMAL INSPECTION - Respiratory Exam Respiratory Exam: Decreased Breath Sounds Additional comments: right anterior chest wall port in place - Cardiovascular Exam Cardiovascular Exam: +S1, +S2 - GI/Abdominal Exam GI & Abdominal Exam: Soft. absent: Tenderness Assessment and Plan - Assessment and Plan (Free Text) Plan: Assessment S/P treatment of abdominal wall cellulitis with probable infected abdominal mesh; most recent cultures from 05/03/2018 showed Pseudomonas and C. famata - eosinophilia R/O due to meds acute renal failure S/P HD catheter placement S/P small bowel obstruction in this patient with ventral wall hernia, S/P ventral incarcerated hernia repair, adhesiolysis and revision of colostomy S/P acute coronary syndrome with NSTEMI COPD history of VRE UTI history of severe sepsis secondary to left medial thigh abscess, growing Proteus, S/P incision and drainage DM HTN CAD Unresectable rectal cancer S/P chemotherapy and radiation therapy S/P colostomy S/P Port-a-cath placement morbid obesity with BMI 50 obstructive sleep apnea history of pulmonary embolism S/P IVC filter placement Plan will continue to monitor off antibiotics since she is at risk for nosocomial infections; apparently the patient has been refusing to have the mesh removed as per other doctors Renal following and managing acute renal failure and is now on dialysis overall prognosis is poor
--- NOTE | 2018-06-07 13:49 | CP.PCM.APN ---
Subjective - Date & Time of Evaluation Date of Evaluation: 06/07/18 Time of Evaluation: 11:30 - Subjective Subjective: pt in bed in no acute distress Objective - Vital Signs/Intake and Output Vital Signs (last 24 hours): Temp Pulse Resp BP Pulse Ox 99.4 F 92 H 14 144/54 L 99 06/07/18 12:00 06/07/18 12:00 06/07/18 12:00 06/07/18 12:00 06/06/18 12:00 Intake and Output: 06/07/18 06/07/18 06:59 18:59 Intake Total 120 Balance 120 - Medications Medications: Current Medications Acetaminophen (Tylenol 325mg Tab) 650 mg PO Q4H PRN PRN Reason: Pain, Mild (1-3) Last Admin: 06/05/18 16:22 Dose: 650 mg Acetylcysteine (Acetylcysteine 20%) 4 ml IH BIDRESP [facility] Last Admin: 06/07/18 08:29 Dose: 4 ml Albuterol/Ipratropium (Duoneb 3 Mg/0.5 Mg (3 Ml) Ud) 3 ml IH [id number] PRN PRN Reason: Shortness of Breath Last Admin: 06/05/18 15:28 Dose: 3 ml Apixaban (Eliquis) 2.5 mg PO BID [facility]; Protocol Last Admin: 06/07/18 10:57 Dose: 2.5 mg Arformoterol Tartrate (Brovana) 15 mcg IH [id number] [facility] Last Admin: 06/07/18 08:29 Dose: 15 mcg Armodafinil (Nuvigil 150 Mg Tab) 150 mg PO DAILY [facility] Last Admin: 06/07/18 10:56 Dose: 150 mg Aspirin (Aspirin Chewable) 81 mg PO DAILY [facility] Last Admin: 06/07/18 10:56 Dose: 81 mg Budesonide (Pulmicort Respules) 0.5 mg IH [id number] [facility] Last Admin: 06/07/18 08:29 Dose: 0.5 mg Calcium Acetate (Phoslo) 667 mg PO WM [facility] Last Admin: 06/07/18 08:23 Dose: 667 mg Clonidine HCl (Catapres) 0.1 mg PO Q6 PRN PRN Reason: Other Last Admin: 06/05/18 05:23 Dose: 0.1 mg Clonidine HCl (Catapres-Tts3 0.3 Mg/24 Hr) 1 patch TD Q7D@1000 [facility] Last Admin: 05/29/18 15:40 Dose: 1 patch Darbepoetin Timothy (Aranesp) 200 mcg IVP QWK [facility] Docusate Sodium (Colace) 100 mg PO TID [facility] Last Admin: 06/07/18 10:57 Dose: 100 mg Furosemide (Lasix) 80 mg IVP QPM [facility] Stop: 06/09/18 18:01 Last Admin: 06/06/18 17:50 Dose: 80 mg Hydralazine HCl (Apresoline) 10 mg PO QID PRN PRN Reason: For SBP>170 Hydralazine HCl (Apresoline) 25 mg PO BID [facility] Last Admin: 06/07/18 10:57 Dose: 25 mg Insulin Detemir (Levemir) 10 unit [address] [facility] Last Admin: 06/06/18 22:34 Dose: Not Given Insulin Human Regular (Humulin R Low) 0 units SC [facility]; Protocol Last Admin: 06/07/18 12:21 Dose: Not Given Labetalol HCl (Trandate) 200 mg PO TID [facility] Last Admin: 06/07/18 10:56 Dose: 200 mg Lactic Acid (Lac-Hydrin 12% Cream (140 G)) 1 ea TOP DAILY [facility] Last Admin: 06/07/18 10:58 Dose: 1 applic Losartan Potassium (Cozaar) 100 mg PO DAILY [facility] Last Admin: 06/07/18 10:56 Dose: 100 mg Magnesium Oxide (Mag-Ox) 400 mg PO BID [facility] Last Admin: 06/07/18 10:56 Dose: 400 mg Montelukast Sodium (Singulair) 10 mg PO [facility] Last Admin: 06/06/18 21:24 Dose: 10 mg Morphine Sulfate (Morphine) 1 mg IVP Q4H PRN PRN Reason: Pain, severe (8-10) Last Admin: 06/07/18 01:47 Dose: 1 mg Multivitamins (Thera Tab) 1 tab PO 0800 [facility] Last Admin: 06/07/18 08:23 Dose: 1 tab Pantoprazole Sodium (Protonix Ec Tab) 40 [address] [facility] Last Admin: 06/06/18 21:24 Dose: 40 mg Pregabalin (Lyrica) 50 mg PO BID [facility] Last Admin: 06/07/18 10:57 Dose: 50 mg Risperidone (Risperdal Tab) 0.5 mg PO HS JR; Protocol Last Admin: 06/06/18 21:24 Dose: 0.5 mg Risperidone (Risperdal Tab) 0.5 mg PO DAILY [facility]; Protocol Last Admin: 06/07/18 10:57 Dose: 0.5 mg Saliva Substitute (Saliva Substitute) 0 ml PO 5XD PRN PRN Reason: DRY MOUTH Sodium Chloride ([place] Nasal [place]) 0 ml NS Q2H PRN PRN Reason: Nasal congestion Zolpidem Tartrate (Ambien) 5 mg PO HS PRN; Protocol PRN Reason: Insomnia Last Admin: 06/05/18 23:41 Dose: 5 mg - Labs Labs: 06/07/18 06:00 06/07/18 06:00 PT 12.5 SECONDS (9.4-12.5) 05/30/18 06:06 INR 1.09 05/30/18 06:06 APTT 27.1 Seconds (25.1-36.5) 05/30/18 06:06 - Constitutional Appears: Non-toxic - Eye Exam Eye Exam: Normal appearance - Respiratory Exam Respiratory Exam: Decreased Breath Sounds, NORMAL BREATHING PATTERN - Cardiovascular Exam Cardiovascular Exam: +S1, +S2 - Psychiatric Exam Psychiatric exam: Normal Affect - Skin Skin Exam: Dry, Intact Assessment and Plan - Assessment and Plan (Free Text) Plan: spoke to Dr Florian and informed Sw got bed at [facility] in [place].. per PMD ok to DC pt
--- NOTE | 2018-06-07 14:40 | CP.PCM.PN ---
Subjective - Date & Time of Evaluation Date of Evaluation: 06/07/18 Time of Evaluation: 14:38 - Subjective Subjective: Nephrology Consultation Note: Assessment: Stable SHELBI ? pre-renal/ATN versus AIN as also with peripheral eosinophilia and eosinolphiuria, started HD 05/28/18 pulmonary congestion with fluid overload. hypomag, hyperphosphatemia hyperkalemia SBO s/p ex lap with ? MESH infection AMS, delirium left adrenal adenoma, Rt renal hyperdense cyst chronic hypercapnic respi failure Diabetic chronic Kidney Disease (E11.22) Hypertensive Chronic Kidney Disease (I12.9) Chronic Kidney Disease (N18.3) Stage 3 with 2.4 gm proteinuria (R80.9) likely due to DM/HTN/Obesity Anemia Vit D def morbid obesity, CAD s/p stent, COPD/SUMMER, rectal ca s/p colostomy Plan HD as per TTS schedule. more urine output now, check 24 hr crcl but pt anuric. d/c lasix HTN control on multiple meds. also on losartan now Monitor Input/Output, daily weights and renal function with basic metabolic panel PRBC as needed d/w heme and okay to use KAVYA from heme perspective. on weekly aransep increased to 200 mcg supplement lytes as needed d/w ID re; concerns for AIN, eosinophilia and antibiotics. had d/c abx pt given steroids empirically for few days and stopped due to her co-morbidities and current clinical condition. pt not a candidate for kidney biopsy Adrenal adenoma work up with plasma renin/aldosterone, plasma metanephrine NEGATIVE. outpt 1 mg dexa suppression test repeat renal sono in 6 months to assess her Rt renal cyst Dose meds/antibiotics for reduced GFR. Avoid fleets enema/magnesium based laxatives. Avoid nephrotoxins/NSAIDs/ iodinated contrast (unless needed emergently) Glycemic control Further work up/management as per primary team overall prognosis poor/guarded. d/c planning to SNF, likely with outpt HD need atleast in short term basis. will continue to monitor for renal recovery Thanks for allowing me to participate in care of your patient. Will follow patient with you. Please call if any Qs. had d/w team Dr Dae Dawn Office: [phone] Chief Complaint;AMS Reason for consult: Acute Kidney Injury, CKD 3 HPI: Pt is a 62 F with hx of diabetes Mellitus (15 years), hypertension (years), CKD 3 with baseline cr 1.2-1.3 recently admitted after complicated abdominal surgery that represents w/ abdominal pain. Was recommended to get mesh removed last admission but refusing and still refusing per surgical service. She does not know why she is in the hospital. She denies n/v. She endorses reduced po intake. ROS: pt not able to provide much reliably. confusion better though. she is more awake. anuric Physical Examination: General Appearance: comfortable, morbidly obese. not in acute respi distress Vitals reviewed and noted as below Head; Atraumatic, normocephalic EYES: Pupils are equal, round and reactive to light accommodation. Eye muscles and extraocular movement intact. Sclera is anicteric. Neck; supple no lymphadenopathy, no thyromegaly or bruit Lungs: improved respiratory rate/effort. Breath sounds bilateral equal, diminished at bases but overall limited exam due to her obesity Heart: normal rate. s1s2 normal. No rub or gallop. Extremities: 2+ edema, No varicose veins Neurological: Patient is more awake and alert less confused Skin: Warm and dry. Normal turgor. No rash. Palpitation: Normal elasticity for age Abdomen: Abdomen is + colostomy. midline odnita + Psych: deferred MSK: no joint tenderness or swelling. Digits and nails normal, no deformity : kidney or bladder not palpable. left IJ PC + rt side criss cath Labs/imaging reviewed. Past medical history, past surgical history, family history, social history, allergy reviewed and noted as below Family hx: no hx of CKD. Rest non-contributory Objective - Vital Signs/Intake and Output Vital Signs (last 24 hours): Temp Pulse Resp BP Pulse Ox 99.4 F 92 H 14 144/54 L 99 06/07/18 12:00 06/07/18 12:00 06/07/18 12:00 06/07/18 12:00 06/06/18 12:00 Intake and Output: 06/07/18 06/07/18 06:59 18:59 Intake Total 120 Balance 120 - Medications Medications: Current Medications Acetaminophen (Tylenol 325mg Tab) 650 mg PO Q4H PRN PRN Reason: Pain, Mild (1-3) Last Admin: 01/02/19 16:22 Dose: 650 mg Acetylcysteine (Acetylcysteine 20%) 4 ml IH BIDRESP [facility] Last Admin: 06/07/18 08:29 Dose: 4 ml Albuterol/Ipratropium (Duoneb 3 Mg/0.5 Mg (3 Ml) Ud) 3 ml IH [id number] PRN PRN Reason: Shortness of Breath Last Admin: 06/05/18 15:28 Dose: 3 ml Apixaban (Eliquis) 2.5 mg PO BID [facility]; Protocol Last Admin: 06/07/18 10:57 Dose: 2.5 mg Arformoterol Tartrate (Brovana) 15 mcg IH [id number] [facility] Last Admin: 06/07/18 08:29 Dose: 15 mcg Armodafinil (Nuvigil 150 Mg Tab) 150 mg PO DAILY [facility] Last Admin: 06/07/18 10:56 Dose: 150 mg Aspirin (Aspirin Chewable) 81 mg PO DAILY [facility] Last Admin: 06/07/18 10:56 Dose: 81 mg Budesonide (Pulmicort Respules) 0.5 mg IH [id number] [facility] Last Admin: 06/07/18 08:29 Dose: 0.5 mg Calcium Acetate (Phoslo) 667 mg PO WM [facility] Last Admin: 06/07/18 14:18 Dose: 667 mg Clonidine HCl (Catapres) 0.1 mg PO Q6 PRN PRN Reason: Other Last Admin: 06/05/18 05:23 Dose: 0.1 mg Clonidine HCl (Catapres-Tts3 0.3 Mg/24 Hr) 1 patch TD Q7D@1000 [facility] Last Admin: 05/29/18 15:40 Dose: 1 patch Darbepoetin Timothy (Aranesp) 200 mcg IVP QWK [facility] Docusate Sodium (Colace) 100 mg PO TID [facility] Last Admin: 06/07/18 14:18 Dose: 100 mg Furosemide (Lasix) 80 mg IVP QPM [facility] Stop: 06/09/18 18:01 Last Admin: 06/06/18 17:50 Dose: 80 mg Hydralazine HCl (Apresoline) 10 mg PO QID PRN PRN Reason: For SBP>170 Hydralazine HCl (Apresoline) 25 mg PO BID [facility] Last Admin: 06/07/18 10:57 Dose: 25 mg Insulin Detemir (Levemir) 10 unit SC [facility] Last Admin: 06/06/18 22:34 Dose: Not Given Insulin Human Regular (Humulin R Low) 0 units SC [facility]; Protocol Last Admin: 06/07/18 12:21 Dose: Not Given Labetalol HCl (Trandate) 200 mg PO TID [facility] Last Admin: 06/07/18 14:21 Dose: 200 mg Lactic Acid (Lac-Hydrin 12% Cream (140 G)) 1 ea TOP DAILY [facility] Last Admin: 06/07/18 10:58 Dose: 1 applic Losartan Potassium (Cozaar) 100 mg PO DAILY [facility] Last Admin: 06/07/18 10:56 Dose: 100 mg Magnesium Oxide (Mag-Ox) 400 mg PO BID [facility] Last Admin: 06/07/18 10:56 Dose: 400 mg Montelukast Sodium (Singulair) 10 mg PO HS [facility] Last Admin: 06/06/18 21:24 Dose: 10 mg Morphine Sulfate (Morphine) 1 mg IVP Q4H PRN PRN Reason: Pain, severe (8-10) Last Admin: 06/07/18 14:22 Dose: 1 mg Multivitamins (Thera Tab) 1 tab PO 0800 [facility] Last Admin: 06/07/18 08:23 Dose: 1 tab Pantoprazole Sodium (Protonix Ec Tab) 40 mg PO HS [facility] Last Admin: 06/06/18 21:24 Dose: 40 mg Pregabalin (Lyrica) 50 mg PO BID [facility] Last Admin: 06/07/18 10:57 Dose: 50 mg Risperidone (Risperdal Tab) 0.5 mg PO HS [facility]; Protocol Last Admin: 06/06/18 21:24 Dose: 0.5 mg Risperidone (Risperdal Tab) 0.5 mg PO DAILY [facility]; Protocol Last Admin: 06/07/18 10:57 Dose: 0.5 mg Saliva Substitute (Saliva Substitute) 0 ml PO 5XD PRN PRN Reason: DRY MOUTH Sodium Chloride ([place] Nasal [place]) 0 ml NS Q2H PRN PRN Reason: Nasal congestion Zolpidem Tartrate (Ambien) 5 mg PO HS PRN; Protocol PRN Reason: Insomnia Last Admin: 06/05/18 23:41 Dose: 5 mg - Labs Labs: 06/07/18 06:00 06/07/18 06:00 PT 12.5 SECONDS (9.4-12.5) 05/30/18 06:06 INR 1.09 05/30/18 06:06 APTT 27.1 Seconds (25.1-36.5) 05/30/18 06:06
--- NOTE | 2018-06-07 14:56 | PN ---
DATE: 06/06/2018 SUBJECTIVE: The patient is comfortable in no respiratory distress afebrile. No chest pain. She just feel generally weak, waiting for rehab. PHYSICAL EXAMINATION: VITAL SIGNS: Temperature is 97.9, heart rate 78, blood pressure 145/52 and respiration 19. HEAD AND NECK: Normal. No JVD. No thyromegaly. CHEST: Clear bilateral. CARDIAC: First sound and second sound normal. ABDOMEN: Soft. There is midline incision with minimum discharge and right side colostomy. EXTREMITIES: Mild edema. NEUROLOGIC: General weakness and nonfocal. Alert, awake and oriented x3. LABORATORY STUDIES: White count 8.6, hemoglobin 8.5, hematocrit 31.2 and platelets 238. Chemistry; sodium 134, potassium 4.2, chloride 98, bicarb 34, BUN of 22, creatinine 2.6, blood sugar 89, calcium 8.3, total bilirubin is 0.3, AST 37, ALT 17 normal and alkaline phosphatase 228. IMPRESSION AND PLAN: 1. Chronic acute interstitial nephritis on top of chronic nephropathy, diabetic hypertensive nephropathy, currently on hemodialysis. Her renal replacement therapy seems doing better. The patient seems making urine now. We will continue follow on that. 2. Diabetes, insulin dependant. She is on insulin coverage. 3. Hypertension stable with current medications. 4. Morbid obesity, obstructive sleep apnea, chronic obstructive pulmonary disease. Continue current therapy. 5. Pulmonary hypertension. History of hypercoagulable state, continue Eliquis. Anemia, chronic. current multifactorial right now, we will continue replacement therapy. The patient will do hemodialysis on rehab unit and we will see how the patient do. Continue current therapy. Elroy Florian MD
--- NOTE | 2018-06-07 16:00 | PN ---
DATE: 06/07/2018 SUBJECTIVE: The patient is a 62-year-old [place] female who had been exhibiting problematic behavior including excessive crying out spontaneously. She has been more tranquil over the past several days. She does have a history of congestive heart failure, chronic renal insufficiency and acute kidney injury requiring dialysis. She is also morbidly obese and has had a history of deep vein thrombosis and a pulmonary embolus as well as a history of an intestinal obstruction with surgery including rectal cancer with a colostomy. The patient's appetite has been poor. She has not been crying out. While frequently lethargic, she is easily arousable. PHYSICAL EXAMINATION: VITAL SIGNS: Blood pressure 135/70, pulse 88, temperature 97.9, respiratory rate 20. Eusebio Mendoza MD/ PhD
[2018-06-07 16:33] VITALS: PULSE 93
--- NOTE | 2018-06-08 20:47 | DS ---
HISTORY OF PRESENT ILLNESS: The patient was admitted to the hospital because of change in mental status, found to have abdominal wound infections, and change in mental status due to multiple medications including Nuvigil 300 mg that was given at night, so she could not sleep, she came in for evaluation, that was stopped, given Ativan, seen by Psychiatry consult and also ID consult, Surgical consult, Renal consult, Cardiology consult, and Hematology consult. The patient has wound infection and was given Merrem for almost a week or more. The patient developed some sort of increasing and rise in creatinine over a week and then was given steroids, eosinophils in the urine, eosinophils in the blood and Nephrology consult seen the patient and attributed to allergic interstitial nephritis. The patient was maintained on IV fluid to help the kidney; however, no urine output. She was oliguric and hyperkalemic. At that point, renal replacement therapy recommended, catheter was placed in and the patient had underwent frequent dialysis with improvement in her conditions including the water retention and weakness. The patient is still weak. She needs fair extensive physical therapy plus maintained on hemodialysis. Wound infections of the previous surgery according to Dr. Mckeon, she seems doing a lot better at this time superficial; however, definite mesh infection cannot be ruled out, we will see how the patient clinically do. Currently, the patient seems stable, we will focus on dialysis, physical therapy and see how the patient do. The patient's blood pressure was high and was controlled with multiple blood pressure medicines. She was given steroids to be tapered down to 10 mg, 5 mg for 2 more days and then we will stop. The patient also had history of rectal cancer. She has colostomy. She has anemia. She has hypercoagulable state and seems stable. Currently, the patient was discharged on clonidine 0.3 one patch once a week, Levemir 20 units subcutaneously daily, Dilaudid p.r.n. 2 mg every 4 hours p.r.n., low algorithm insulin coverage, Pulmicort, Brovana, Procardia 60 once a day, Imdur 60 once a day, Norvasc 10 mg daily, multivitamins, Lipitor 20, Brovana 15 b.i.d., Mylicon p.r.n., Protonix 20, hydralazine 100 t.i.d., labetalol 300 p.o. every 8 hours, Ativan 0.5 mg every 8 hours p.r.n., Tylenol p.r.n., Reglan 5 mg a.c. and at bedtime, iron pills once a day, she also getting vitamin D once a week, aspirin 81, Eliquis 2.5 b.i.d., Lasix 40 p.o. daily, Colace 100 p.o. t.i.d., and Nuvigil 125 mg in the candlemaker. We will discharge the patient and we will see how she do. PHYSICAL EXAMINATION: VITAL SIGNS: Temperature is 97.9, heart rate 86, blood pressure 126/48, and respirations 20. HEAD AND NECK: Normal. There is a Port-A-Cath on the right, there is left ureteral catheter on the upper chest. CHEST: Clear. ABDOMEN: Soft and obese. The wound still covered and the right colostomy. EXTREMITIES: Lower extremity, mild edema. NEUROLOGIC: She is alert, awake, and oriented x3 with generalized weakness. LABORATORY DATA: On discharge she has white count 9.1, hemoglobin 8.8., hematocrit 31.7, and platelets 243. Chemistry; sodium 133, potassium 4.5, chloride 98, bicarb 33, BUN 16, and creatinine 2.1. Blood sugar; glucose is 111 and calcium is 8. DISCHARGE DIAGNOSES: 1. Acute change in mental status, toxic metabolic encephalopathy. 2. Severe panic disorder with generalized anxiety disorder. 3. Wound infections. 4. Acute allergic interstitial nephritis. 5. Acute on top of chronic renal failure. 6. Diabetic nephropathy and hypertensive nephropathy. 7. Anemia iron deficiency plus chronic anemia plus anemia of chronic disease. 8. Acute anuria. 9. Hyperkaliemia. 10. Insulin-dependent diabetes. 11. Hypercholesterolemia. 12. Coronary artery disease with right coronary artery stent. 13. Pulmonary hypertension. 14. Chronic obstructive pulmonary disease with morbid obesity. 15. Obstructive sleep apnea, on bilevel positive airway pressure. 16. Generalized weakness and deconditioning. PLAN: The patient will need extensive physical therapy and renal replacement therapy. We will continue current medications and monitor the patient's condition clinically. Discussed with her son and the patient about the plan and the risks and prognosis. Continue current therapy. Elroy Florian MD [facility] # [id number]
[2018-06-11] MEDS ORDERED: Darbepoetin Alfa 100 mcg/ml Inj IVP SCH (10:00)
--- NOTE | 2018-06-19 09:35 | PQF ---
PROVIDER RESPONSE TEXT: Patient had on admission congestive heart failure left side diastolic heart failure and right side he art failure and sever pulmonary hypertension. with significant edema No uti REVIEWER QUERY TEXT: Clarification of Clinical Diagnostic Findings Please clarify documentation or clinical relevance for the clinical / diagnostic findings or whether those are insignificant or unable to be further specified. The patient's Clinical Indicators include: Patient admitted with fever and lethargy. ED documents UTI, CHF, COPD. Your summary documents "acute change in mental status, toxic metabolic encephalopathy" as #1 and COPD as #14, without mention of CH F or UTI. Please clarify pricipal diagnosis--reason for admission after study. Thank you. Query created by: Olivia Price on 06/10/2018 12:03 PM Electronically signed by: Elroy Florian MD 06/19/2018 9:32 AM
== END 2018-06-07 17:04 | DRG 291 ==
LOC: ED 13:01 → ERH 15:11 → 2RSO 17:24 → 5RNO 05-20 09:39 → 2RNO 05-24 19:09
PROVIDERS: ADMIT Internal Medicine; ATTEND Internal Medicine
PROC: 5A09457 Assistance with Respiratory Ventilation, 24-96 Consecutive Hours, Continuous Positive Airway Pressure (ICD-10-PCS; principal; 2018-05-11)
PROC: 3E0F73Z Introduction of Anti-inflammatory into Respiratory Tract, Via Natural or Artificial Opening (ICD-10-PCS; 2018-05-11)
PROC: 5A09457 Assistance with Respiratory Ventilation, 24-96 Consecutive Hours, Continuous Positive Airway Pressure (ICD-10-PCS; 2018-05-26)
PROC: 5A1D70Z Performance of Urinary Filtration, Intermittent, Less than 6 Hours Per Day (ICD-10-PCS; 2018-05-28)
PROC: 5A1D70Z Performance of Urinary Filtration, Intermittent, Less than 6 Hours Per Day (ICD-10-PCS; 2018-05-29)
PROC: 05HN33Z Insertion of Infusion Device into Left Internal Jugular Vein, Percutaneous Approach (ICD-10-PCS; 2018-05-30)
PROC: B514ZZA Fluoroscopy of Left Jugular Veins, Guidance (ICD-10-PCS; 2018-05-30)
PROC: 5A1D70Z Performance of Urinary Filtration, Intermittent, Less than 6 Hours Per Day (ICD-10-PCS; 2018-05-30)
PROC: 5A1D70Z Performance of Urinary Filtration, Intermittent, Less than 6 Hours Per Day (ICD-10-PCS; 2018-06-01)
PROC: 5A1D70Z Performance of Urinary Filtration, Intermittent, Less than 6 Hours Per Day (ICD-10-PCS; 2018-06-03)
PROC: 5A1D70Z Performance of Urinary Filtration, Intermittent, Less than 6 Hours Per Day (ICD-10-PCS; 2018-06-04)
PROC: 05HN33Z Insertion of Infusion Device into Left Internal Jugular Vein, Percutaneous Approach (ICD-10-PCS; 2018-06-06)
PROC: B544ZZA Ultrasonography of Left Jugular Veins, Guidance (ICD-10-PCS; 2018-06-06)
PROC: 5A1D70Z Performance of Urinary Filtration, Intermittent, Less than 6 Hours Per Day (ICD-10-PCS; 2018-06-06)
DX: I13.2 Hypertensive heart and chronic kidney disease with heart failure and with stage 5 chronic kidney disease, or end stage renal disease (principal); I50.33 Acute on chronic diastolic (congestive) heart failure; N18.6 End stage renal disease; G92 Toxic encephalopathy; L03.311 Cellulitis of abdominal wall; T85.79XA Infection and inflammatory reaction due to other internal prosthetic devices, implants and grafts, initial encounter; N17.9 Acute kidney failure, unspecified; C20 Malignant neoplasm of rectum; E87.2 Acidosis; J96.12 Chronic respiratory failure with hypercapnia; Z68.43 Body mass index [BMI] 50.0-59.9, adult; F03.91 Unspecified dementia, unspecified severity, with behavioral disturbance; D68.59 Other primary thrombophilia; Z68.44 Body mass index [BMI] 60.0-69.9, adult; N10 Acute pyelonephritis; J96.10 Chronic respiratory failure, unspecified whether with hypoxia or hypercapnia; J44.9 Chronic obstructive pulmonary disease, unspecified; L89.159 Pressure ulcer of sacral region, unspecified stage; G47.33 Obstructive sleep apnea (adult) (pediatric); G47.00 Insomnia, unspecified; E66.01 Morbid (severe) obesity due to excess calories; Z93.3 Colostomy status; Y83.2 Surgical operation with anastomosis, bypass or graft as the cause of abnormal reaction of the patient, or of later complication, without mention of misadventure at the time of the procedure; I25.10 Atherosclerotic heart disease of native coronary artery without angina pectoris; Z95.5 Presence of coronary angioplasty implant and graft; D35.01 Benign neoplasm of right adrenal gland; D35.02 Benign neoplasm of left adrenal gland; E11.22 Type 2 diabetes mellitus with diabetic chronic kidney disease; E11.43 Type 2 diabetes mellitus with diabetic autonomic (poly)neuropathy; R41.82 Altered mental status, unspecified; Z86.711 Personal history of pulmonary embolism; Z86.718 Personal history of other venous thrombosis and embolism; E87.5 Hyperkalemia; K31.84 Gastroparesis; E78.00 Pure hypercholesterolemia, unspecified; Z79.4 Long term (current) use of insulin; F43.22 Adjustment disorder with anxiety; F41.1 Generalized anxiety disorder; E11.65 Type 2 diabetes mellitus with hyperglycemia; E86.0 Dehydration; L89.152 Pressure ulcer of sacral region, stage 2; I25.2 Old myocardial infarction; D50.9 Iron deficiency anemia, unspecified; D63.8 Anemia in other chronic diseases classified elsewhere; E78.5 Hyperlipidemia, unspecified; G89.29 Other chronic pain; I27.20 Pulmonary hypertension, unspecified; I50.82 Biventricular heart failure; M54.40 Lumbago with sciatica, unspecified side; Z79.01 Long term (current) use of anticoagulants; Z99.2 Dependence on renal dialysis; Z85.048 Personal history of other malignant neoplasm of rectum, rectosigmoid junction, and anus; D63.1 Anemia in chronic kidney disease; E11.21 Type 2 diabetes mellitus with diabetic nephropathy; E11.649 Type 2 diabetes mellitus with hypoglycemia without coma; B37.9 Candidiasis, unspecified; D72.1 Eosinophilia; E03.9 Hypothyroidism, unspecified; E55.9 Vitamin D deficiency, unspecified; F03.90 Unspecified dementia, unspecified severity, without behavioral disturbance, psychotic disturbance, mood disturbance, and anxiety; F41.0 Panic disorder [episodic paroxysmal anxiety]; G47.10 Hypersomnia, unspecified; G62.9 Polyneuropathy, unspecified; G89.18 Other acute postprocedural pain; I35.0 Nonrheumatic aortic (valve) stenosis; K21.9 Gastro-esophageal reflux disease without esophagitis; K43.5 Parastomal hernia without obstruction or gangrene; M19.90 Unspecified osteoarthritis, unspecified site; Z90.49 Acquired absence of other specified parts of digestive tract; Z92.21 Personal history of antineoplastic chemotherapy; Z92.3 Personal history of irradiation

== ENCOUNTER 2018-10-02 19:02 | Inpatient (IN) | payer MEDICARE, OTHER ==
[2018-10-02 19:06] VITALS: BMI 46.6
[2018-10-02 20:16] LABS: VENOUS BLOOD GAS BASE EXCESS -2.4 mmol/L (0.0-2.0); VENOUS BLOOD GAS PO2 39 mm/Hg (30-55); VENOUS BLOOD PH 7.33 (7.32-7.43)
[2018-10-02 20:20] LABS: BASO # 0.06 K/mm3 (0.0-2.0); BASO % 0.3 % (0.0-3.0); EOS # 0.3 (0.0-0.7); EOS % 1.2 % (1.5-5.0); HEMOGLOBIN 9.8 g/dL (12.0-16.0); LYMPH # 1.9 (1.2-3.4); LYMPH % 8.5 % (22.0-35.0); MEAN CELL VOLUME 94.3 fl (80.0-105.0); MEAN CORPUSCULAR HEMOGLOBIN 27.8 pg (25.0-35.0); MEAN CORPUSCULAR HGB CONC 29.5 g/dl (31.0-37.0); MEAN PLATELET VOLUME 10.6 fl (7.0-11.0); MONO # 0.6 (0.1-0.6); MONO % 2.9 % (1.0-6.0); RBC 3.52 10^6/uL (3.5-6.1)
[2018-10-02 20:29] LABS: ALB/GLOB RATIO 0.8 (1.1-1.8); ALBUMIN 3.5 g/dL (3.0-4.8); CALCIUM 9.1 mg/dL (8.4-10.5)
[2018-10-02 20:31] LABS: INR 1.12; PARTIAL THROMBOPLASTIN TIME 30.6 Seconds (26.9-38.3); PROTHROMBIN TIME 12.4 SECONDS (9.4-12.5)
[2018-10-02] MEDS ORDERED: Vancomycin 1 gm/D5W 200 ml 200 ML IV STA (21:01)
[2018-10-02] MEDS ORDERED: Piperacillin/Tazobact 3.375 gm 100 ML IV STA (21:01)
[2018-10-02] MEDS ORDERED: Vancomycin 1gm in NS 250ml 1 GM/250 ML BAG IVPB STA (21:05)
--- NOTE | 2018-10-02 21:07 | ED PDOC ---
Arrival/HPI - General Chief Complaint: Dizziness/Lightheaded Time Seen by Provider: 10/02/18 19:35 Historian: Patient - History of Present Illness Narrative History of Present Illness (Text): 10/02/18 19:35 Pedro Guevara is a 62 year old female, whose past medical history includes morbid obesity, diabetes, hypertension, ESRD on hemodialysis, abdominal surgery secondary to bowel obstruction, and colostomy, who presents to the ED sent from dialysis as patient was unable to fully complete dialysis today. Patient states she began feeling unwell with chills and generalized malaise. Patient denies any chest pain, abdominal pain, cough, shortness of breath or any other complaints. Past Medical History - Provider Review Nursing Documentation Reviewed: Yes Primary Care Provider: Dae Dawn - Infectious Disease Hx of Infectious Diseases: None - Tetanus Immunization Tetanus Immunization: Unknown - Reproductive Menopause: Yes - Cardiac Hx Hypertension: Yes - Pulmonary Hx Chronic Obstructive Pulmonary Disease (COPD): Yes - Neurological Hx Neurological Disorder: Yes Hx Dizziness: Yes - HEENT Hx Macular Degeneration: No - Renal Hx Renal Failure: Yes - Endocrine/Metabolic Hx Diabetes Mellitus Type 2: Yes - Hematological/Oncological Hx Blood Transfusions: Yes Hx Blood Transfusion Reaction: No - Integumentary Hx Dermatological Disorder: No - Musculoskeletal/Rheumatological Hx Falls: No - Gastrointestinal Hx Gastrointestinal Disorders: Yes (RECTAL CA WITH COLOSTOMY,GI BLEED) Hx Colostomy: Yes Hx Gastroesophageal Reflux: Yes - Genitourinary/Gynecological Hx Genitourinary Disorders: Yes (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,UTI) - Psychiatric Hx Psychophysiologic Disorder: Yes Hx Anxiety: Yes Hx Substance Use: No - Surgical History Hx Appendectomy: Yes Hx Coronary Stent: Yes Hx Vascular Access Device: Yes Other/Comment: colostomy - Anesthesia Hx Anesthesia: Yes Hx Anesthesia Reactions: No Hx Malignant Hyperthermia: No - Suicidal Assessment Feels Threatened In Home Enviroment: No Family/Social History - Physician Review Nursing Documentation Reviewed: Yes Family/Social History: Unknown Family HX Smoking Status: Never Smoked Hx Alcohol Use: No Hx Substance Use: No Hx Substance Use Treatment: No Allergies/Home Meds Allergies/Adverse Reactions: Allergies No Known Allergies Allergy (Verified 05/11/18 17:26) Home Medications: Home Meds Medication Instructions Recorded Confirmed HYDROmorphone [Dilaudid] 2 mg PO Q4H PRN 05/11/18 05/11/18 LORazepam [Ativan] 0.5 mg PO Q8H PRN 05/11/18 05/11/18 Ondansetron [Zofran Inj] 4 mg PO Q4H PRN 05/11/18 05/11/18 Review of Systems - Physician Review All systems were reviewed & negative as marked: Yes - Review of Systems Constitutional: Other (+chills, +generalized malaise) Eyes: Normal ENT: Normal Respiratory: Normal. absent: SOB, Cough Cardiovascular: Normal. absent: Chest Pain Gastrointestinal: Normal. absent: Abdominal Pain, Diarrhea, Nausea, Vomiting Genitourinary Female: Normal. absent: Dysuria, Frequency, Hematuria, Urine Output Changes Musculoskeletal: Normal. absent: Back Pain, Neck Pain Skin: Normal. absent: Rash Neurological: Normal. absent: Headache, Dizziness Endocrine: Normal Hemo/Lymphatic: Normal Psychiatric: Normal Physical Exam Vital Signs Reviewed: Yes Vital Signs Temp Pulse Resp BP Pulse Ox 10/02/18 20:45 100.3 F H 10/02/18 20:23 84 17 128/81 96 10/02/18 19:02 97.7 F 106 H 20 95/45 L 95 Temperature: Afebrile Blood Pressure: Hypotensive Pulse: Tachycardic Respiratory Rate: Normal Appearance: Positive for: Well-Appearing, Non-Toxic, Comfortable Pain Distress: None Mental Status: Positive for: Alert and Oriented X 3 - Systems Exam Head: Present: Atraumatic, Normocephalic Pupils: Present: PERRL Extroacular Muscles: Present: EOMI Conjunctiva: Present: Normal Mouth: Present: Moist Mucous Membranes Neck: Present: Normal Range of Motion Respiratory/Chest: Present: Clear to Auscultation, Good Air Exchange. No: Respiratory Distress, Accessory Muscle Use Cardiovascular: Present: Regular Rate and Rhythm, Normal S1, S2. No: Murmurs Abdomen: Present: Scars (Surgical scars noted), Other (Colostomy bag with stool present, no surrounding erythema noted). No: Tenderness, Distention, Peritoneal Signs Back: Present: Normal Inspection. No: CVA Tenderness, Midline Tenderness, Paraspinal Tenderness Upper Extremity: Present: Normal Inspection. No: Cyanosis, Edema Lower Extremity: Present: Normal Inspection. No: Edema Neurological: Present: GCS=15, CN II-XII Intact, Speech Normal Skin: Present: Warm, Dry, Normal Color. No: Rashes Psychiatric: Present: Alert, Oriented x 3, Normal Insight, Normal Concentration Medical Decision Making ED Course and Treatment: 10/02/18 19:35 Impression: 62 year old female complaining of chills and generalized malaise. Plan: -- EKG -- Chest X-ray -- Labs, VBG, blood cultures -- Urinalysis, urine cultures -- Tylenol -- Reassess and disposition Prior Visits: Notes and results from previous visits were reviewed. Progress Notes: Reviewed EKG, accelerated junctional rhythm at [address]/T wave changes. 10/02/18 20:35 CXR reviewed, shows no acute processes. 10/02/18 21:[address] Florian, requests pt go to hospitalist service. 10/02/18 21:10 Case discussed with medical chief technician application security engineer, who is aware and agrees with plan. 10/02/18 21:[address] Landrum, who is aware and agrees with plan. Accepts pt in to his service. Pt admitted to [facility] for SIRS, leukocytosis, fever, and ESRD. - Lab Interpretations Lab Results: pO2 39 mm/Hg (30-55) 10/02/18 20:08 VBG pH 7.33 (7.32-7.43) 10/02/18 20:08 VBG pCO2 45.0 (40-60) 10/02/18 20:08 VBG HCO3 23.7 mmol/l (21-28) 10/02/18 20:08 VBG Total CO2 25.1 mmol.L (22-28) 10/02/18 20:08 VBG O2 Sat (Calc) 79.7 % (40-65) H 10/02/18 20:08 VBG Base Excess -2.4 mmol/L (0.0-2.0) L 10/02/18 20:08 VBG Potassium 4.6 mmol/L (3.6-5.2) 10/02/18 20:08 Sodium 140.0 mmol/L (132-148) 10/02/18 20:08 Chloride 106.0 mmol/L (98-107) 10/02/18 20:08 Glucose 101 mg/dl (65-105) 10/02/18 20:08 Lactate 1.0 mmol/L (0.7-2.1) 10/02/18 20:08 FiO2 21.0 % 10/02/18 20:08 PT 12.4 SECONDS (9.4-12.5) 10/02/18 20:05 INR 1.12 10/02/18 20:05 APTT 30.6 Seconds (26.9-38.3) 10/02/18 20:05 Total Bilirubin 0.5 mg/dL (0.2-1.3) 10/02/18 20:05 AST 23 U/L (14-36) 10/02/18 20:05 ALT 12 U/L (7-56) 10/02/18 20:05 Alkaline Phosphatase 195 U/L (38-126) H 10/02/18 20:05 Total Protein 7.6 g/dL (5.8-8.3) 10/02/18 20:05 Albumin 3.5 g/dL (3.0-4.8) 10/02/18 20:05 Globulin 4.1 gm/dL 10/02/18 20:05 Albumin/Globulin Ratio 0.8 (1.1-1.8) L 10/02/18 20:05 I have reviewed the lab results: Yes - RAD Interpretation Radiology Orders: 10/02/18 19:38 CHEST PORTABLE [RAD] [place] Engineer: ED Physician - EKG Interpretation Interpreted by ED Physician: Yes Type: 12 lead EKG - Medication Orders Current Medication Orders: Discontinued Medications Acetaminophen (Tylenol 325mg Tab) 650 mg PO STAT STA Stop: 10/02/18 20:13 Last Admin: 10/02/18 20:45 Dose: 650 mg MAR Pain/Vitals Document 10/02/18 20:45 CD (Rec: 10/02/18 20:46 CD [facility] [id number]) Pain Reassessment Is This A Pain ReAssessment? No Sleep Is patient sleeping during reassessment? No Presence of Pain Presence of Pain No Vitals Temperature (97.6 F-99.6 F) 100.3 F Temperature Source Rectal - Scribe Statement The provider has reviewed the documentation as recorded by the Ervinibtyshawn Mares Provider Scribe Attestation: All medical record entries made by the Scribe were at my direction and personally dictated by me. I have reviewed the chart and agree that the record accurately reflects my personal performance of the history, physical exam, medical decision making, and the department course for this patient. I have also personally directed, reviewed, and agree with the discharge instructions and disposition. Disposition/Present on Arrival - Present on Arrival Any Indicators Present on Arrival: No History of DVT/PE: Yes History of Uncontrolled Diabetes: No Urinary Catheter: No History of Decub. Ulcer: No History Surgical Site Infection Following: None - Disposition Have Diagnosis and Disposition been Completed?: Yes Diagnosis: SIRS (systemic inflammatory response syndrome), Leukocytosis Disposition: HOSPITALIZED Disposition Time: 21:35 Patient Problems: Current Active Problems Problem Status Onset Leukocytosis Acute SIRS (systemic inflammatory response syndrome) Acute Condition: STABLE
[2018-10-02] MEDS ORDERED: Magnesium Sulfate 2 gm/50 ml 2 GM/50 ML BAG IVPB ONE (22:54)
[2018-10-02] MEDS ORDERED: Albuterol-Ipratrop 3 mg / 0.5 (3 ml) UD IH PRN (22:54)
[2018-10-03 01:41] LABS: TROPONIN I < 0.01 ng/mL
[2018-10-03] MEDS ORDERED: Piperacillin/Tazobact 2.25gm 2.25 GM/100 ML BAG IVPB SCH ×2 (05:00→10:00)
[2018-10-03] MEDS: Pantoprazole 40 mg EC Tab PO SCH (05:41)
[2018-10-03 06:05] LABS: BASO # 0.04 K/mm3 (0.0-2.0); BASO % 0.2 % (0.0-3.0); EOS # 0.2 (0.0-0.7); HEMOGLOBIN 8.9 g/dL (12.0-16.0); LYMPH # 3.2 (1.2-3.4); LYMPH % 18.1 % (22.0-35.0); MEAN CELL VOLUME 92.9 fl (80.0-105.0); MEAN CORPUSCULAR HEMOGLOBIN 27.3 pg (25.0-35.0); MEAN CORPUSCULAR HGB CONC 29.4 g/dl (31.0-37.0); MONO # 0.5 (0.1-0.6); MONO % 2.6 % (1.0-6.0); RBC 3.26 10^6/uL (3.5-6.1); VENOUS BLOOD GAS BASE EXCESS -3.3 mmol/L (0.0-2.0); VENOUS BLOOD GAS PO2 189 mm/Hg (30-55); VENOUS BLOOD PH 7.28 (7.32-7.43); WHITE BLOOD COUNT 17.8 10^3/uL (4.5-11.0)
[2018-10-03 06:31] LABS: TROPONIN I 0.03 ng/mL
[2018-10-03 06:44] LABS: ALB/GLOB RATIO 0.8 (1.1-1.8)
[2018-10-03] MEDS ORDERED: Barium Sulfate Susp 2.1% w/v, 2.0% w/w 450 mL Bottle PO ONE (08:03)
[2018-10-03] MEDS: Budesonide 0.5 mg/2 ml Inhal Susp UD IH SCH ×2 (08:31→19:39)
[2018-10-03] MEDS: Arformoterol 15 mcg/2 ml Inh Sol IH SCH ×2 (08:31→19:38)
--- NOTE | 2018-10-03 08:56 | RAD ---
Date of service: 10/02/2018 HISTORY: Sepsis Patient COMPARISON: 05/30/2018 TECHNIQUE: 1 view obtained. FINDINGS: LUNGS: No active pulmonary disease. PLEURA: No significant pleural effusion identified, no pneumothorax apparent. CARDIOVASCULAR: Aortic calcification Normal cardiac size. No pulmonary vascular congestion. OSSEOUS STRUCTURES: No significant abnormalities. VISUALIZED UPPER ABDOMEN: Normal. OTHER FINDINGS: Right-sided dialysis catheter IMPRESSION: No active disease.
[2018-10-03] MEDS: Insulin Reg-MEDIUM-Coverage SC SCH ×4 (08:58→22:24)
--- NOTE | 2018-10-03 09:15 | CP.PCM.HP ---
<AndriyLarry - Last Filed: 10/03/18 09:06> History of Present Illness - History of Present Illness History of Present Illness: Medicine H&P: Andriy PGY - 2 Chief Complaint: Weakness 62 F with pertinent medical history of CKD on Dialysis MWF, Anemia, Morbid obesity, SUMMER, HTN, DM2, HLD, and CAD with stent presented to [facility] on [place]02 with c/o weakness and generallized fatigue. Patient states that she was at HD on 10/02, when she became weak and was unable to finish her session. She admits to subjective fevers and chills and overall not feeling well. She aslo admits to nausea upon arrival to the ED. She denies any sick contacts, any productive sputum or recent weight loss, night sweats. Of note, patient recently had abdominal surgery for Hernia repair. Review of Systems: 12-point ROS was reviewed and is otherwise unremarkable. PMHx: Renal failure, chronic renal insufficiency, anemia, colorectal ca s/p resection, colostomy x 2, morbid obesity, obstructive sleep apnea, COPD, chronic back pain, djd, sciatica, DM2, HTN, hypercholesterolemia, CAD with baremetal stent placed in 2013, pulmonary embolus and DVT PSHx: Colectomy with colostomy, appendectomy, h/o Meds: Amlodipine, Apixaban, Oxybutynin Chloride ER, Simvastatin, Primirdone, Metolazone, Hydralazine, Metoprolol succinate, Isosorbide mononitrate, furosemide, aspirin, pantoprazole. All: NKDA Social Hx: Denies smoking or drinking Present on Admission - Present on Admission Any Indicators Present on Admission: No Past Patient History - Infectious Disease Hx of Infectious Diseases: None - Tetanus Immunizations Tetanus Immunization: Unknown - Past Social History Smoking Status: Never Smoked - CARDIAC Hx Cardiac Disorders: Yes Hx Cardia Arrhythmia: Yes Hx Congestive Heart Failure: Yes Hx Hypercholesterolemia: Yes Hx Hypertension: Yes Hx Peripheral Edema: Yes - PULMONARY Hx Respiratory Disorders: Yes Hx Chronic Obstructive Pulmonary Disease (COPD): Yes Hx Pneumonia: Yes Hx Sleep Apnea: Yes - NEUROLOGICAL Hx Neurological Disorder: Yes Hx Dizziness: Yes - HEENT Hx HEENT Problems: Yes (uses glasses) Hx Macular Degeneration: No - RENAL Hx Chronic Kidney Disease: Yes Hx Dialysis: Yes (T,,S) Hx Renal Failure: Yes - ENDOCRINE/METABOLIC Hx Endocrine Disorders: Yes Hx Diabetes Mellitus Type 2: Yes - HEMATOLOGICAL/ONCOLOGICAL Hx Blood Disorders: Yes (blood transfusion) Hx Anemia: Yes - INTEGUMENTARY Hx Dermatological Problems: No - MUSCULOSKELETAL/RHEUMATOLOGICAL Hx Musculoskeletal Disorders: Yes Hx Back Pain: Yes - GASTROINTESTINAL Hx Gastrointestinal Disorders: Yes (RECTAL CA WITH COLOSTOMY,GI BLEED) Hx Colostomy: Yes Hx Gastroesophageal Reflux: Yes - GENITOURINARY/GYNECOLOGICAL Hx Genitourinary Disorders: Yes (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,UTI) - PSYCHIATRIC Hx Psychophysiologic Disorder: Yes Hx Anxiety: Yes - SURGICAL HISTORY Hx Surgeries: Yes (COLOSTOMY) Hx Appendectomy: Yes Hx Cardiac Catheterization: Yes Hx Coronary Stent: Yes Other/Comment: colostomy - ANESTHESIA Hx Anesthesia: Yes Hx Anesthesia Reactions: No Hx Malignant Hyperthermia: No Meds Allergies/Adverse Reactions: Allergies Allergy/AdvReac Type Severity Reaction Status Date / Time No Known Allergies Allergy Verified 05/11/18 17:26 Physical Exam - Constitutional Appears: Non-toxic, Older Than Stated Age - Head Exam Head Exam: ATRAUMATIC, NORMAL INSPECTION, NORMOCEPHALIC - Eye Exam Eye Exam: EOMI, Normal appearance, PERRL Pupil Exam: NORMAL ACCOMODATION, PERRL - ENT Exam ENT Exam: Mucous Membranes Moist, Normal Exam - Neck Exam Neck exam: Positive for: Full Rom, Normal Inspection Additional comments: Large circumference; central access for HD - Respiratory Exam Respiratory Exam: Clear to Auscultation Bilateral, NORMAL BREATHING PATTERN - Cardiovascular Exam Cardiovascular Exam: REGULAR RHYTHM - GI/Abdominal Exam GI & Abdominal Exam: Normal Bowel Sounds, Soft. absent: Tenderness - Extremities Exam Extremities exam: Positive for: normal inspection - Back Exam Back exam: NORMAL INSPECTION - Neurological Exam Neurological exam: Alert, CN II-XII Intact, Normal Gait, Oriented x3, Reflexes Normal - Psychiatric Exam Psychiatric exam: Normal Affect, Normal Mood - Skin Skin Exam: Dry, Intact, Normal Color, Warm - Additional Findings Additional findings: Morbid obesity scratch calderon on R LE Results - Vital Signs Recent Vital Signs: Last Vital Signs Temp 98 F 10/03/18 06:00 Pulse 104 H 10/03/18 08:32 Resp 20 10/03/18 06:00 BP 123/64 10/03/18 06:00 Pulse Ox 95 10/03/18 06:00 - Labs Result Diagrams: 10/03/18 05:30 10/03/18 05:30 Labs: Laboratory Results - last 24 hr 10/02/18 10/02/18 10/02/18 20:05 20:05 20:05 WBC 22.0 H D RBC 3.52 Hgb 9.8 L Hct 33.2 L MCV 94.3 D MCH 27.8 MCHC 29.5 L RDW 18.0 H Plt Count 317 MPV 10.6 Neut % (Auto) 87.1 H Lymph % (Auto) 8.5 L Centre % (Auto) 2.9 Eos % (Auto) 1.2 L Baso % (Auto) 0.3 Lymph # (Auto) 1.9 Centre # (Auto) 0.6 Eos # (Auto) 0.3 Baso # (Auto) 0.06 Absolute Neuts (auto) 19.17 H PT 12.4 INR 1.12 APTT 30.6 pO2 VBG pH VBG pCO2 VBG HCO3 VBG Total CO2 VBG O2 Sat (Calc) VBG Base Excess VBG Potassium Glucose Lactate FiO2 Sodium 138 Potassium 4.6 Chloride 105 Carbon Dioxide 22 Anion Gap 16 BUN 70 H Creatinine 6.2 H Est GFR ( Amer) 8 Est GFR (Non-Af Amer) 7 Random Glucose 101 Calcium 9.1 Phosphorus 7.5 H Magnesium 1.6 L Total Bilirubin 0.5 AST 23 ALT 12 Alkaline Phosphatase 195 H Lactate Dehydrogenase Total Creatine Kinase Troponin I Total Protein 7.6 Albumin 3.5 Globulin 4.1 Albumin/Globulin Ratio 0.8 L Triglycerides Cholesterol LDL Cholesterol Direct HDL Cholesterol TSH 3rd Generation Venous Blood Potassium Influenza Typ A,B (EIA) 10/02/18 10/02/18 10/03/18 20:05 20:08 01:00 WBC RBC Hgb Hct MCV MCH MCHC RDW Plt Count MPV Neut % (Auto) Lymph % (Auto) Centre % (Auto) Eos % (Auto) Baso % (Auto) Lymph # (Auto) Centre # (Auto) Eos # (Auto) Baso # (Auto) Absolute Neuts (auto) PT INR APTT pO2 39 VBG pH 7.33 VBG pCO2 45.0 VBG HCO3 23.7 VBG Total CO2 25.1 VBG O2 Sat (Calc) 79.7 H VBG Base Excess -2.4 L VBG Potassium 4.6 Glucose 101 Lactate 1.0 FiO2 21.0 Sodium 140.0 Potassium Chloride 106.0 Carbon Dioxide Anion Gap BUN Creatinine Est GFR ( Amer) Est GFR (Non-Af Amer) Random Glucose Calcium Phosphorus Magnesium Total Bilirubin AST ALT Alkaline Phosphatase Lactate Dehydrogenase 568 Total Creatine Kinase 25 L Troponin I < 0.01 D Total Protein Albumin Globulin Albumin/Globulin Ratio Triglycerides Cholesterol LDL Cholesterol Direct HDL Cholesterol TSH 3rd Generation Venous Blood Potassium 4.6 Influenza Typ A,B (EIA) Negative for flu a/b 10/03/18 10/03/18 10/03/18 05:30 05:30 05:30 WBC 17.8 H RBC 3.26 L Hgb 8.9 L Hct 30.3 L MCV 92.9 MCH 27.3 MCHC 29.4 L RDW 18.0 H Plt Count 322 MPV 11.0 Neut % (Auto) 78.1 H Lymph % (Auto) 18.1 L Centre % (Auto) 2.6 Eos % (Auto) 1.0 L Baso % (Auto) 0.2 Lymph # (Auto) 3.2 Centre # (Auto) 0.5 Eos # (Auto) 0.2 Baso # (Auto) 0.04 Absolute Neuts (auto) 13.86 H PT INR APTT pO2 189 H VBG pH 7.28 L VBG pCO2 51.0 VBG HCO3 24.0 VBG Total CO2 25.6 VBG O2 Sat (Calc) 99.3 H VBG Base Excess -3.3 L VBG Potassium 4.9 Glucose 90 Lactate 0.7 FiO2 21.0 Sodium 138.0 139 Potassium 4.9 Chloride 107.0 106 Carbon Dioxide 24 Anion Gap 14 BUN 72 H Creatinine 6.6 H Est GFR ( Amer) 8 Est GFR (Non-Af Amer) 6 Random Glucose 91 Calcium 9.0 Phosphorus 8.6 H Magnesium 2.2 Total Bilirubin 0.5 AST 23 ALT 7 Alkaline Phosphatase 155 H D Lactate Dehydrogenase 430 Total Creatine Kinase 93 Troponin I 0.03 D Total Protein 6.8 Albumin 3.0 Globulin 3.8 Albumin/Globulin Ratio 0.8 L Triglycerides 192 H Cholesterol 181 LDL Cholesterol Direct 85 HDL Cholesterol 29 TSH 3rd Generation Venous Blood Potassium 4.9 Influenza Typ A,B (EIA) 10/03/18 05:30 WBC RBC Hgb Hct MCV MCH MCHC RDW Plt Count MPV Neut % (Auto) Lymph % (Auto) Centre % (Auto) Eos % (Auto) Baso % (Auto) Lymph # (Auto) Centre # (Auto) Eos # (Auto) Baso # (Auto) Absolute Neuts (auto) PT INR APTT pO2 VBG pH VBG pCO2 VBG HCO3 VBG Total CO2 VBG O2 Sat (Calc) VBG Base Excess VBG Potassium Glucose Lactate FiO2 Sodium Potassium Chloride Carbon Dioxide Anion Gap BUN Creatinine Est GFR ( Amer) Est GFR (Non-Af Amer) Random Glucose Calcium Phosphorus Magnesium Total Bilirubin AST ALT Alkaline Phosphatase Lactate Dehydrogenase Total Creatine Kinase Troponin I Total Protein Albumin Globulin Albumin/Globulin Ratio Triglycerides Cholesterol LDL Cholesterol Direct HDL Cholesterol TSH 3rd Generation 0.48 Venous Blood Potassium Influenza Typ A,B (EIA) Assessment & Plan - Assessment and Plan (Free Text) Assessment: 62 F with generalized fatigue and weakness as well as subjective fever and chills. Temperature here was just short of a fever, but patient with leukocytosis and tachycardia with recent HD and abdominal surgery, so high suspicion for sepsis. Of note, patient has history of ESBL and VRE in urine Plan Possible Sepsis - CT Abdomen Pelvis to rule out abdominal source; need to approve with nephro - Blood cultures, Urine cultures - Vanc/Zosyn Hypophosphatemia - Patient is s/p dialysis, so needs to be corrected, given phoslo Hx COPD - Duonebs Q2 PRN - Brovana 15mcg Q12 - Budesonide 0.5mg Q12 HTN - Norvasc 10 daily - Imdur 60 daily - Clonidine 0.1 po TID Hx CHF - Continue home meds - Low salt diet CKD - Renal consult for possible extra session of HD today - Patient needs IV and PO contrast for abdominal CT - should check with nephro if this is okay Hx DVT/PE - Continue home Eliquis 2.5 Daily Hx DM w/ Neuropathy - Levemir 20 Q12 - ISS Low ACHS - Lyrica 200 QD Hx of VRE and ESBL UTI - UCx pending Hx tremors - Primidone 50 QD Hx HLD - Zocor 40 QD Prophylaxis - Eliquis/Protonix <Shagufta Landrum - Last Filed: 10/03/18 19:35> Results - Vital Signs Recent Vital Signs: Last Vital Signs Temp 98 F 10/03/18 12:00 Pulse 92 H 10/03/18 12:00 Resp 18 10/03/18 12:00 BP 130/72 10/03/18 12:00 Pulse Ox 95 10/03/18 06:00 - Labs Result Diagrams: 10/03/18 05:30 10/03/18 05:30 Labs: Laboratory Results - last 24 hr 10/02/18 10/02/18 10/02/18 20:05 20:05 20:05 WBC 22.0 H D RBC 3.52 Hgb 9.8 L Hct 33.2 L MCV 94.3 D MCH 27.8 MCHC 29.5 L RDW 18.0 H Plt Count 317 MPV 10.6 Neut % (Auto) 87.1 H Lymph % (Auto) 8.5 L Centre % (Auto) 2.9 Eos % (Auto) 1.2 L Baso % (Auto) 0.3 Lymph # (Auto) 1.9 Centre # (Auto) 0.6 Eos # (Auto) 0.3 Baso # (Auto) 0.06 Absolute Neuts (auto) 19.17 H PT 12.4 INR 1.12 APTT 30.6 pO2 VBG pH VBG pCO2 VBG HCO3 VBG Total CO2 VBG O2 Sat (Calc) VBG Base Excess VBG Potassium Glucose Lactate FiO2 Sodium 138 Potassium 4.6 Chloride 105 Carbon Dioxide 22 Anion Gap 16 BUN 70 H Creatinine 6.2 H Est GFR ( Amer) 8 Est GFR (Non-Af Amer) 7 POC Glucose (mg/dL) Random Glucose 101 Hemoglobin A1c Calcium 9.1 Phosphorus 7.5 H Magnesium 1.6 L Total Bilirubin 0.5 AST 23 ALT 12 Alkaline Phosphatase 195 H Lactate Dehydrogenase Total Creatine Kinase Troponin I Total Protein 7.6 Albumin 3.5 Globulin 4.1 Albumin/Globulin Ratio 0.8 L Triglycerides Cholesterol LDL Cholesterol Direct HDL Cholesterol TSH 3rd Generation Venous Blood Potassium Influenza Typ A,B (EIA) 10/02/18 10/02/18 10/03/18 20:05 20:08 01:00 WBC RBC Hgb Hct MCV MCH MCHC RDW Plt Count MPV Neut % (Auto) Lymph % (Auto) Centre % (Auto) Eos % (Auto) Baso % (Auto) Lymph # (Auto) Centre # (Auto) Eos # (Auto) Baso # (Auto) Absolute Neuts (auto) PT INR APTT pO2 39 VBG pH 7.33 VBG pCO2 45.0 VBG HCO3 23.7 VBG Total CO2 25.1 VBG O2 Sat (Calc) 79.7 H VBG Base Excess -2.4 L VBG Potassium 4.6 Glucose 101 Lactate 1.0 FiO2 21.0 Sodium 140.0 Potassium Chloride 106.0 Carbon Dioxide Anion Gap BUN Creatinine Est GFR ( Amer) Est GFR (Non-Af Amer) POC Glucose (mg/dL) Random Glucose Hemoglobin A1c Calcium Phosphorus Magnesium Total Bilirubin AST ALT Alkaline Phosphatase Lactate Dehydrogenase 568 Total Creatine Kinase 25 L Troponin I < 0.01 D Total Protein Albumin Globulin Albumin/Globulin Ratio Triglycerides Cholesterol LDL Cholesterol Direct HDL Cholesterol TSH 3rd Generation Venous Blood Potassium 4.6 Influenza Typ A,B (EIA) Negative for flu a/b 10/03/18 10/03/18 10/03/18 05:30 05:30 05:30 WBC 17.8 H RBC 3.26 L Hgb 8.9 L Hct 30.3 L MCV 92.9 MCH 27.3 MCHC 29.4 L RDW 18.0 H Plt Count 322 MPV 11.0 Neut % (Auto) 78.1 H Lymph % (Auto) 18.1 L Centre % (Auto) 2.6 Eos % (Auto) 1.0 L Baso % (Auto) 0.2 Lymph # (Auto) 3.2 Centre # (Auto) 0.5 Eos # (Auto) 0.2 Baso # (Auto) 0.04 Absolute Neuts (auto) 13.86 H PT INR APTT pO2 189 H VBG pH 7.28 L VBG pCO2 51.0 VBG HCO3 24.0 VBG Total CO2 25.6 VBG O2 Sat (Calc) 99.3 H VBG Base Excess -3.3 L VBG Potassium 4.9 Glucose 90 Lactate 0.7 FiO2 21.0 Sodium 138.0 139 Potassium 4.9 Chloride 107.0 106 Carbon Dioxide 24 Anion Gap 14 BUN 72 H Creatinine 6.6 H Est GFR ( Amer) 8 Est GFR (Non-Af Amer) 6 POC Glucose (mg/dL) Random Glucose 91 Hemoglobin A1c Calcium 9.0 Phosphorus 8.6 H Magnesium 2.2 Total Bilirubin 0.5 AST 23 ALT 7 Alkaline Phosphatase 155 H D Lactate Dehydrogenase 430 Total Creatine Kinase 93 Troponin I 0.03 D Total Protein 6.8 Albumin 3.0 Globulin 3.8 Albumin/Globulin Ratio 0.8 L Triglycerides 192 H Cholesterol 181 LDL Cholesterol Direct 85 HDL Cholesterol 29 TSH 3rd Generation Venous Blood Potassium 4.9 Influenza Typ A,B (EIA) 10/03/18 10/03/18 10/03/18 05:30 05:30 07:15 WBC RBC Hgb Hct MCV MCH MCHC RDW Plt Count MPV Neut % (Auto) Lymph % (Auto) Centre % (Auto) Eos % (Auto) Baso % (Auto) Lymph # (Auto) Centre # (Auto) Eos # (Auto) Baso # (Auto) Absolute Neuts (auto) PT INR APTT pO2 VBG pH VBG pCO2 VBG HCO3 VBG Total CO2 VBG O2 Sat (Calc) VBG Base Excess VBG Potassium Glucose Lactate FiO2 Sodium Potassium Chloride Carbon Dioxide Anion Gap BUN Creatinine Est GFR ( Amer) Est GFR (Non-Af Amer) POC Glucose (mg/dL) 89 Random Glucose Hemoglobin A1c 6.6 H Calcium Phosphorus Magnesium Total Bilirubin AST ALT Alkaline Phosphatase Lactate Dehydrogenase Total Creatine Kinase Troponin I Total Protein Albumin Globulin Albumin/Globulin Ratio Triglycerides Cholesterol LDL Cholesterol Direct HDL Cholesterol TSH 3rd Generation 0.48 Venous Blood Potassium Influenza Typ A,B (EIA) 10/03/18 10/03/18 10/03/18 11:07 11:25 18:13 WBC RBC Hgb Hct MCV MCH MCHC RDW Plt Count MPV Neut % (Auto) Lymph % (Auto) Centre % (Auto) Eos % (Auto) Baso % (Auto) Lymph # (Auto) Centre # (Auto) Eos # (Auto) Baso # (Auto) Absolute Neuts (auto) PT INR APTT pO2 VBG pH VBG pCO2 VBG HCO3 VBG Total CO2 VBG O2 Sat (Calc) VBG Base Excess VBG Potassium Glucose Lactate FiO2 Sodium Potassium Chloride Carbon Dioxide Anion Gap BUN Creatinine Est GFR ( Amer) Est GFR (Non-Af Amer) POC Glucose (mg/dL) 115 H Random Glucose Hemoglobin A1c Calcium Phosphorus Magnesium Total Bilirubin AST ALT Alkaline Phosphatase Lactate Dehydrogenase 453 Total Creatine Kinase 71 Troponin I 0.02 D 0.02 Total Protein Albumin Globulin Albumin/Globulin Ratio Triglycerides Cholesterol LDL Cholesterol Direct HDL Cholesterol TSH 3rd Generation Venous Blood Potassium Influenza Typ A,B (EIA) Attending/Attestation - Attestation I have personally seen and examined this patient.: Yes I have fully participated in the care of the patient.: Yes I have reviewed all pertinent clinical information: Yes Notes (Text): 10/03/18 19:34 Seen and examined. discussed with resident. Pt. reports chills, subjective fever and bed sores in sacral region. attempted to visualize bed sores, but was unsuccessful 2/2 pt.'s weight.
--- NOTE | 2018-10-03 09:17 | CARD ---
APPROVED REPORT Date of service: 10/02/2018 EKG Measurement Heart [id number] <Conclusion> Sinus tachycardia Otherwise normal ECG
[2018-10-03] MEDS ORDERED: Vancomycin 1gm in NS 250ml 1 GM/250 ML BAG IVPB SCH (10:00)
[2018-10-03] MEDS ORDERED: Darbepoetin Alfa 100 mcg/ml Inj IVP SCH (12:00)
--- NOTE | 2018-10-03 14:05 | CT ---
Date of service: 10/03/2018 PROCEDURE: CT Abdomen and Pelvis with contrast HISTORY: Recent abd surgery, r/o abscess COMPARISON: 05/11/2018 CT TECHNIQUE: Contrast dose: 150 cc of Omni 350 Radiation dose: Total exam DLP = 1578.28 mGy-cm. This CT exam was performed using one or more of the following dose reduction techniques: Automated exposure control, adjustment of the mA and/or kV according to patient size, and/or use of iterative reconstruction technique. FINDINGS: LOWER THORAX: Unremarkable. LIVER: Unremarkable. No gross lesion or ductal dilatation. GALLBLADDER AND BILE DUCTS: Unremarkable. PANCREAS: Unremarkable. No gross lesion or ductal dilatation. SPLEEN: Unremarkable. ADRENALS: There is a 17 mm left adrenal mass consistent with an adenoma. This is unchanged. KIDNEYS AND URETERS: Unremarkable. No hydronephrosis. No solid mass. VASCULATURE: Caval filter. Aortic calcification BOWEL: There is an ostomy to the right of midline. There is a fat containing hernia on the left side of the abdominal wall. Presacral postoperative changes are seen. No evidence of abscess APPENDIX: Normal appendix. PERITONEUM: Unremarkable. No free fluid. No free air. LYMPH NODES: Unremarkable. No enlarged lymph nodes. BLADDER: Unremarkable. REPRODUCTIVE: Unremarkable. BONES: No acute fracture. OTHER FINDINGS: None. IMPRESSION: No evidence of intra-abdominal abscess
--- NOTE | 2018-10-03 14:08 | CP.PCM.APN ---
Subjective - Date & Time of Evaluation Date of Evaluation: 10/03/18 Time of Evaluation: 11:10 - Subjective Subjective: Pt. seen and examined, laying in bed, moaning, appears fatigued, in no acute distress. Objective - Vital Signs/Intake and Output Vital Signs (last 24 hours): Temp Pulse Resp BP Pulse Ox 98 F 92 H 18 130/72 95 10/03/18 12:00 10/03/18 12:00 10/03/18 12:00 10/03/18 12:00 10/03/18 06:00 Intake and Output: 10/03/18 10/03/18 06:59 18:59 Intake Total 100 Output Total 0 Balance 100 - Medications Medications: Current Medications Albuterol/Ipratropium (Duoneb 3 Mg/0.5 Mg (3 Ml) Ud) 3 ml IH Q2H PRN PRN Reason: Shortness of Breath Apixaban (Eliquis) 2.5 mg PO BID [facility]; Protocol Last Admin: 10/03/18 10:12 Dose: 2.5 mg Arformoterol Tartrate (Brovana) 15 mcg IH [id number] [facility] Last Admin: 10/03/18 08:31 Dose: 15 mcg Aspirin (Ecotrin) 81 mg PO DAILY [facility] Atorvastatin Calcium (Lipitor) 20 mg PO HS [facility] Budesonide (Pulmicort Respules) 0.5 mg IH [id number] [facility] Last Admin: 10/03/18 08:31 Dose: 0.5 mg Darbepoetin Timothy (Aranesp) 100 mcg IVP QWK [facility] Docusate Sodium (Colace) 100 mg PO TID [facility] Last Admin: 10/03/18 10:11 Dose: Not Given Doxycycline Hyclate (Doryx) 100 mg PO Q12 [facility]; Protocol Stop: 10/10/18 10:01 Last Admin: 10/03/18 10:12 Dose: 100 mg Meropenem 250 mg/ Sodium (Chloride) 100 mls @ 100 mls/hr IVPB Q12H [facility]; Protocol Stop: 10/10/18 07:31 Last Admin: 10/03/18 10:11 Dose: 100 mls/hr Insulin Detemir (Levemir) 20 unit SC Q12H [facility] Insulin Human Lispro (Humalog) 30 units SC ACTID [facility] Insulin Human Regular (Humulin R Med) 0 units SC ACHS [facility]; Protocol Last Admin: 10/03/18 08:58 Dose: Not Given Metoprolol Succinate (Toprol Xl) 100 mg PO DAILY [facility] Pantoprazole Sodium (Protonix Ec Tab) 40 mg PO 0600 [facility] Last Admin: 10/03/18 05:41 Dose: 40 mg Sevelamer HCl (Renagel) 1,600 mg PO TID [facility] Vitamin B Complex/Vit C/Folic Acid (Nephro-Holland) 1 tab PO 0800 [facility] - Labs Labs: 10/03/18 05:30 10/03/18 05:30 PT 12.4 SECONDS (9.4-12.5) 10/02/18 20:05 INR 1.12 10/02/18 20:05 APTT 30.6 Seconds (26.9-38.3) 10/02/18 20:05 - Constitutional Appears: Non-toxic, No Acute Distress, Other - Head Exam Head Exam: NORMOCEPHALIC - Eye Exam Eye Exam: Normal appearance - ENT Exam ENT Exam: Normal Exam - Neck Exam Neck Exam: Full ROM - Respiratory Exam Respiratory Exam: NORMAL BREATHING PATTERN - Cardiovascular Exam Cardiovascular Exam: REGULAR RHYTHM, +S1, +S2 - GI/Abdominal Exam Additional comments: colostomy, with stool noted. - Rectal Exam Rectal Exam: Deferred - Exam Exam: absent: Circumcision, NORMAL INSPECTION, Scrotal Swelling, Testicular Tenderness, Uretheral Discharge, Testicular Vertical Lie, Bladder Distension External exam: absent: Ecchymosis, Erythema, Lacerations, Lesions, NORMAL EXTERNAL EXAM, Swelling Speculum exam: absent: Cervical Discharge, Erythema, Foreign Body, Laceration, NORMAL SPECULUM EXAM, Tissue, Vaginal Bleeding, Vaginal Discharge Bimanual exam: absent: Adenexal Mass, Adnexal, Cervical Motion Tendernes, NORMAL BIMANUAL EXAM, Uterine Enlargement, Uterine Tenderness - Extremities Exam Extremities Exam: Full ROM - Skin Skin Exam: Dry, Intact, Normal Color, Warm Assessment and Plan - Assessment and Plan (Free Text) Assessment: ITS Impressions Chest X-Ray 10/02/18 19:38 IMPRESSION: No active disease. Abdomen/Pelvis CT 10/03/18 12:00 IMPRESSION: No evidence of intra-abdominal abscess No Known Allergies Allergy (Verified 05/11/18 17:26) Assessment: 62 year old female, whose past medical history includes morbid obesity, diabe janet, hypertension, ESRD on hemodialysis, abdominal surgery secondary to bowel obstruction, and colostomy, who presents to the ED sent from dialysis as patient was unable to fully complete dialysis due to fatigue, weakness, chills. Plan: 1. Fatigue/Weakness, Secondary to underlying infectious process, PT eval pending. 2. Leukocytosis Cultures pending, Antibx per I.D. CT abdomen result pending, monitor/trend wbc. 3. CRF- HD as per nephrology Will continue to monitor clinical status and follow closely.
--- NOTE | 2018-10-03 14:31 | CP.PCM.CON ---
History of Present Illness - History of Present Illness History of Present Illness: General Surgery LazDot Mckeon 62 y/o F w/ significant PMHx presented to the ED 10/02/18 from HD center c/o weakness/chills. Pt was unable to complete HD due to fatigue and malaise. Pt reports fatigue has been present since surgery in April. Pt admits to inability to get out of bed 2/2 pain in B/L LE and general fatigue. Aside from this singular complaint, pt denies any other issues. Denies F/C, CP, SOB, N/V, abd pain, D/C. tolerating diet. good ostomy function. PMHx: anemia, morbid obesity, ESRD on HD, rectal ca, SUMMER, COPD, DJD, sciatica, HLD, HTN, CAD, PE, DVT, IDDM Meds: reviewed in chart NKDA PSHx: parastomal hernia repair, creation of end colostomy and mucous fistula, APR w/ mucous fistula, loop transverse colostomy, appy, , PCI, permacath, IVC filter SHx: denies tobacco, EtOH, drug use FHX: noncontributory Review of Systems - Review of Systems All systems: reviewed and no additional remarkable complaints except (see HPI) Past Patient History - Infectious Disease Hx of Infectious Diseases: None - Tetanus Immunizations Tetanus Immunization: Unknown - Past Social History Smoking Status: Never Smoked - CARDIAC Hx Cardiac Disorders: Yes Hx Cardia Arrhythmia: Yes Hx Congestive Heart Failure: Yes Hx Hypercholesterolemia: Yes Hx Hypertension: Yes Hx Peripheral Edema: Yes - PULMONARY Hx Respiratory Disorders: Yes Hx Chronic Obstructive Pulmonary Disease (COPD): Yes Hx Pneumonia: Yes Hx Sleep Apnea: Yes - NEUROLOGICAL Hx Neurological Disorder: Yes Hx Dizziness: Yes - HEENT Hx HEENT Problems: Yes (uses glasses) Hx Macular Degeneration: No - RENAL Hx Chronic Kidney Disease: Yes Hx Dialysis: Yes (T,TH,S) Hx Renal Failure: Yes - ENDOCRINE/METABOLIC Hx Endocrine Disorders: Yes Hx Diabetes Mellitus Type 2: Yes - HEMATOLOGICAL/ONCOLOGICAL Hx Blood Disorders: Yes (blood transfusion) Hx Anemia: Yes - INTEGUMENTARY Hx Dermatological Problems: No - MUSCULOSKELETAL/RHEUMATOLOGICAL Hx Musculoskeletal Disorders: Yes Hx Back Pain: Yes - GASTROINTESTINAL Hx Gastrointestinal Disorders: Yes (RECTAL CA WITH COLOSTOMY,GI BLEED) Hx Colostomy: Yes Hx Gastroesophageal Reflux: Yes - GENITOURINARY/GYNECOLOGICAL Hx Genitourinary Disorders: Yes (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,UTI) - PSYCHIATRIC Hx Psychophysiologic Disorder: Yes Hx Anxiety: Yes - SURGICAL HISTORY Hx Surgeries: Yes (COLOSTOMY) Hx Appendectomy: Yes Hx Cardiac Catheterization: Yes Hx Coronary Stent: Yes Other/Comment: colostomy - ANESTHESIA Hx Anesthesia: Yes Hx Anesthesia Reactions: No Hx Malignant Hyperthermia: No Meds Allergies/Adverse Reactions: Allergies Allergy/AdvReac Type Severity Reaction Status Date / Time No Known Allergies Allergy Verified 05/11/18 17:26 - Medications Medications: Current Medications Albuterol/Ipratropium (Duoneb 3 Mg/0.5 Mg (3 Ml) Ud) 3 ml IH Q2H PRN PRN Reason: Shortness of Breath Apixaban (Eliquis) 2.5 mg PO BID [facility]; Protocol Last Admin: 10/03/18 10:12 Dose: 2.5 mg Arformoterol Tartrate (Brovana) 15 mcg IH [id number] [facility] Last Admin: 10/03/18 08:31 Dose: 15 mcg Aspirin (Ecotrin) 81 mg PO DAILY [facility] Atorvastatin Calcium (Lipitor) 20 mg PO HS [facility] Budesonide (Pulmicort Respules) 0.5 mg IH [id number] [facility] Last Admin: 10/03/18 08:31 Dose: 0.5 mg Darbepoetin Timothy (Aranesp) 100 mcg IVP QWK [facility] Docusate Sodium (Colace) 100 mg PO TID [facility] Last Admin: 10/03/18 10:11 Dose: Not Given Doxycycline Hyclate (Doryx) 100 mg PO Q12 [facility]; Protocol Stop: 10/10/18 10:01 Last Admin: 10/03/18 10:12 Dose: 100 mg Meropenem 250 mg/ Sodium (Chloride) 100 mls @ 100 mls/hr IVPB Q12H [facility]; Protocol Stop: 10/10/18 07:31 Last Admin: 10/03/18 10:11 Dose: 100 mls/hr Insulin Detemir (Levemir) 20 unit SC Q12H [facility] Insulin Human Lispro (Humalog) 30 units SC ACTID [facility] Insulin Human Regular (Humulin R Med) 0 units SC ACHS [facility]; Protocol Last Admin: 10/03/18 08:58 Dose: Not Given Metoprolol Succinate (Toprol Xl) 100 mg PO DAILY [facility] Pantoprazole Sodium (Protonix Ec Tab) 40 mg PO 0600 [facility] Last Admin: 10/03/18 05:41 Dose: 40 mg Sevelamer HCl (Renagel) 1,600 mg PO TID [facility] Vitamin B Complex/Vit C/Folic Acid (Nephro-Holland) 1 tab PO 0800 [facility] Physical Exam - Constitutional Appears: Non-toxic, No Acute Distress - Head Exam Head Exam: NORMAL INSPECTION - Eye Exam Eye Exam: Normal appearance - ENT Exam ENT Exam: Mucous Membranes Moist - Respiratory Exam Respiratory Exam: NORMAL BREATHING PATTERN. absent: Accessory Muscle Use, Respiratory Distress - Cardiovascular Exam Cardiovascular Exam: REGULAR RHYTHM. absent: Bradycardia, Tachycardia - GI/Abdominal Exam GI & Abdominal Exam: Hernia (L abd wall), Soft. absent: Distended (morbidly obese), Firm, Guarding, Rebound, Rigid, Tenderness Additional comments: surgical incision well healed. small serous-filled blisters present, no active drainage R-sided ostomy w/ stool present L mucous fistula x2 w/ optifoam dressing - Extremities Exam Extremities exam: Positive for: calf tenderness (B/L). Negative for: pedal edema - Neurological Exam Neurological exam: Alert, Oriented x3 - Psychiatric Exam Psychiatric exam: Normal Affect, Normal Mood - Skin Skin Exam: Dry, Intact, Normal Color, Warm Results - Vital Signs Recent Vital Signs: Last Vital Signs Temp 98 F 10/03/18 12:00 Pulse 92 H 10/03/18 12:00 Resp 18 10/03/18 12:00 BP 130/72 10/03/18 12:00 Pulse Ox 95 10/03/18 06:00 - Labs Result Diagrams: 10/03/18 05:30 10/03/18 05:30 Labs: Laboratory Results - last 24 hr 10/02/18 10/02/18 10/02/18 20:05 20:05 20:05 WBC 22.0 H D RBC 3.52 Hgb 9.8 L Hct 33.2 L MCV 94.3 D MCH 27.8 MCHC 29.5 L RDW 18.0 H Plt Count 317 MPV 10.6 Neut % (Auto) 87.1 H Lymph % (Auto) 8.5 L [place] % (Auto) 2.9 Eos % (Auto) 1.2 L Baso % (Auto) 0.3 Lymph # (Auto) 1.9 [place] # (Auto) 0.6 Eos # (Auto) 0.3 Baso # (Auto) 0.06 Absolute Neuts (auto) 19.17 H PT 12.4 INR 1.12 APTT 30.6 pO2 VBG pH VBG pCO2 VBG HCO3 VBG Total CO2 VBG O2 Sat (Calc) VBG Base Excess VBG Potassium Glucose Lactate FiO2 Sodium 138 Potassium 4.6 Chloride 105 Carbon Dioxide 22 Anion Gap 16 BUN 70 H Creatinine 6.2 H Est GFR ( Amer) 8 Est GFR (Non-Af Amer) 7 POC Glucose (mg/dL) Random Glucose 101 Hemoglobin A1c Calcium 9.1 Phosphorus 7.5 H Magnesium 1.6 L Total Bilirubin 0.5 AST 23 ALT 12 Alkaline Phosphatase 195 H Lactate Dehydrogenase Total Creatine Kinase Troponin I Total Protein 7.6 Albumin 3.5 Globulin 4.1 Albumin/Globulin Ratio 0.8 L Triglycerides Cholesterol LDL Cholesterol Direct HDL Cholesterol TSH 3rd Generation Venous Blood Potassium Influenza Typ A,B (EIA) 10/02/18 10/02/18 10/03/18 20:05 20:08 01:00 WBC RBC Hgb Hct MCV MCH MCHC RDW Plt Count MPV Neut % (Auto) Lymph % (Auto) [place] % (Auto) Eos % (Auto) Baso % (Auto) Lymph # (Auto) [place] # (Auto) Eos # (Auto) Baso # (Auto) Absolute Neuts (auto) PT INR APTT pO2 39 VBG pH 7.33 VBG pCO2 45.0 VBG HCO3 23.7 VBG Total CO2 25.1 VBG O2 Sat (Calc) 79.7 H VBG Base Excess -2.4 L VBG Potassium 4.6 Glucose 101 Lactate 1.0 FiO2 21.0 Sodium 140.0 Potassium Chloride 106.0 Carbon Dioxide Anion Gap BUN Creatinine Est GFR ( Amer) Est GFR (Non-Af Amer) POC Glucose (mg/dL) Random Glucose Hemoglobin A1c Calcium Phosphorus Magnesium Total Bilirubin AST ALT Alkaline Phosphatase Lactate Dehydrogenase 568 Total Creatine Kinase 25 L Troponin I < 0.01 D Total Protein Albumin Globulin Albumin/Globulin Ratio Triglycerides Cholesterol LDL Cholesterol Direct HDL Cholesterol TSH 3rd Generation Venous Blood Potassium 4.6 Influenza Typ A,B (EIA) Negative for flu a/b 10/03/18 10/03/18 10/03/18 05:30 05:30 05:30 WBC 17.8 H RBC 3.26 L Hgb 8.9 L Hct 30.3 L MCV 92.9 MCH 27.3 MCHC 29.4 L RDW 18.0 H Plt Count 322 MPV 11.0 Neut % (Auto) 78.1 H Lymph % (Auto) 18.1 L [place] % (Auto) 2.6 Eos % (Auto) 1.0 L Baso % (Auto) 0.2 Lymph # (Auto) 3.2 [place] # (Auto) 0.5 Eos # (Auto) 0.2 Baso # (Auto) 0.04 Absolute Neuts (auto) 13.86 H PT INR APTT pO2 189 H VBG pH 7.28 L VBG pCO2 51.0 VBG HCO3 24.0 VBG Total CO2 25.6 VBG O2 Sat (Calc) 99.3 H VBG Base Excess -3.3 L VBG Potassium 4.9 Glucose 90 Lactate 0.7 FiO2 21.0 Sodium 138.0 139 Potassium 4.9 Chloride 107.0 106 Carbon Dioxide 24 Anion Gap 14 BUN 72 H Creatinine 6.6 H Est GFR ( Amer) 8 Est GFR (Non-Af Amer) 6 POC Glucose (mg/dL) Random Glucose 91 Hemoglobin A1c Calcium 9.0 Phosphorus 8.6 H Magnesium 2.2 Total Bilirubin 0.5 AST 23 ALT 7 Alkaline Phosphatase 155 H D Lactate Dehydrogenase 430 Total Creatine Kinase 93 Troponin I 0.03 D Total Protein 6.8 Albumin 3.0 Globulin 3.8 Albumin/Globulin Ratio 0.8 L Triglycerides 192 H Cholesterol 181 LDL Cholesterol Direct 85 HDL Cholesterol 29 TSH 3rd Generation Venous Blood Potassium 4.9 Influenza Typ A,B (EIA) 10/03/18 10/03/18 10/03/18 05:30 05:30 07:15 WBC RBC Hgb Hct MCV MCH MCHC RDW Plt Count MPV Neut % (Auto) Lymph % (Auto) [place] % (Auto) Eos % (Auto) Baso % (Auto) Lymph # (Auto) [place] # (Auto) Eos # (Auto) Baso # (Auto) Absolute Neuts (auto) PT INR APTT pO2 VBG pH VBG pCO2 VBG HCO3 VBG Total CO2 VBG O2 Sat (Calc) VBG Base Excess VBG Potassium Glucose Lactate FiO2 Sodium Potassium Chloride Carbon Dioxide Anion Gap BUN Creatinine Est GFR ( Amer) Est GFR (Non-Af Amer) POC Glucose (mg/dL) 89 Random Glucose Hemoglobin A1c 6.6 H Calcium Phosphorus Magnesium Total Bilirubin AST ALT Alkaline Phosphatase Lactate Dehydrogenase Total Creatine Kinase Troponin I Total Protein Albumin Globulin Albumin/Globulin Ratio Triglycerides Cholesterol LDL Cholesterol Direct HDL Cholesterol TSH 3rd Generation 0.48 Venous Blood Potassium Influenza Typ A,B (EIA) 10/03/18 10/03/18 11:07 11:25 WBC RBC Hgb Hct MCV MCH MCHC RDW Plt Count MPV Neut % (Auto) Lymph % (Auto) [place] % (Auto) Eos % (Auto) Baso % (Auto) Lymph # (Auto) [place] # (Auto) Eos # (Auto) Baso # (Auto) Absolute Neuts (auto) PT INR APTT pO2 VBG pH VBG pCO2 VBG HCO3 VBG Total CO2 VBG O2 Sat (Calc) VBG Base Excess VBG Potassium Glucose Lactate FiO2 Sodium Potassium Chloride Carbon Dioxide Anion Gap BUN Creatinine Est GFR ( Amer) Est GFR (Non-Af Amer) POC Glucose (mg/dL) 115 H Random Glucose Hemoglobin A1c Calcium Phosphorus Magnesium Total Bilirubin AST ALT Alkaline Phosphatase Lactate Dehydrogenase Total Creatine Kinase Troponin I 0.02 D Total Protein Albumin Globulin Albumin/Globulin Ratio Triglycerides Cholesterol LDL Cholesterol Direct HDL Cholesterol TSH 3rd Generation Venous Blood Potassium Influenza Typ A,B (EIA) - Imaging and Cardiology CT scan - abdomen Status: Image reviewed by me, Report reviewed by me Chest x-ray Status: Image reviewed by me Assessment & Plan - Assessment and Plan (Free Text) Assessment: 62 y/o F s/p parastoma hernia repair 04/2018 for SBO, currently admitted for leukocytosis and weakness, c/o B/L LE pain Plan: - CTAP w/ no intra-abdominal abscess, no obstruction - cont diet as tolerated - monitor ostomy output - f/u B/L LE duplex for c/o calf pain and Hx DVT - cont home anticoagulation - daily labs - cont Abx - f/u UA - cont medical management of multiple comorbidities - no surgical intervention at this time Pt discussed w/ Dr. Mike Wilkinson DO PGY3
--- NOTE | 2018-10-03 14:33 | CP.PCM.CON ---
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 nephrovite 1 tab daily HTN control with meds as ordered. pt not on most of BP meds these days and hence d/c PRBC as needed, on weekly aransep supplement lytes as needed phos binders added ID and surgery following Adrenal adenoma work up with plasma renin/aldosterone, plasma metanephrine NEGATIVE. will need outpt 1 mg dexa suppression test Dose meds/antibiotics for reduced GFR. Avoid fleets enema/magnesium based laxatives. Avoid nephrotoxins/NSAIDs Glycemic control Further work up/management as per primary team Thanks for allowing me to participate in care of your patient. Will follow patient with you. Please call if any Qs. had d/w team Dr Dae Dawn Office: [phone] Chief Complaint; not feeling well Reason for consult: dialysis HPI: Pt is a 62 F with hx of diabetes Mellitus (15 years), hypertension (years), morbid obesity, CAD s/p stent, COPD/SUMMER, rectal ca s/p colostomy, left adrenal adenoma, Rt renal cyst, chronic hypercapnic respi failure, CKD 3 with baseline cr 1.2-1.3 with SHELBI started HD 05/28/18 and no renal recovery, ESRD now, repeated recent admissions to [facility] for sepsis. she was d/c from rehab recently and sent after HD yesterday as she was c/o chills pain abdomen and not feeling well still feels sick ROS: says I am sleepy. denies SOB. c/o back and abdomen pain. not much urine output. rest all other neg Physical Examination: General Appearance: comfortable, morbidly obese. not in acute respi distress ill appearing Vitals reviewed and noted as below Head; Atraumatic, normocephalic EYES: Pupils are equal, round and reactive to light accommodation. Eye muscles and extraocular movement intact. Sclera is anicteric. Neck; supple no lymphadenopathy, no thyromegaly or bruit Lungs: normal respiratory rate/effort. Breath sounds bilateral equal, diminished at bases but overall limited exam due to her obesity Heart: normal rate. s1s2 normal. No rub or gallop. Extremities: trace edema, No varicose veins Neurological: Patient is sleepy intermittently Skin: Warm and dry. Normal turgor. No rash. Palpitation: Normal elasticity for age Abdomen: Abdomen is + colostomy. dressing overlying wound + tenderness to palpation Psych: deferred MSK: no joint tenderness or swelling. Digits and nails normal, no deformity : kidney or bladder not palpable. access: permacath Labs/imaging reviewed. Past medical history, past surgical history, family history, social history, allergy reviewed and noted as below Family hx: no hx of CKD. Rest non-contributory Past Patient History - Infectious Disease Hx of Infectious Diseases: None - Tetanus Immunizations Tetanus Immunization: Unknown - Past Social History Smoking Status: Never Smoked - CARDIAC Hx Cardiac Disorders: Yes Hx Cardia Arrhythmia: Yes Hx Congestive Heart Failure: Yes Hx Hypercholesterolemia: Yes Hx Hypertension: Yes Hx Peripheral Edema: Yes - PULMONARY Hx Respiratory Disorders: Yes Hx Chronic Obstructive Pulmonary Disease (COPD): Yes Hx Pneumonia: Yes Hx Sleep Apnea: Yes - NEUROLOGICAL Hx Neurological Disorder: Yes Hx Dizziness: Yes - HEENT Hx HEENT Problems: Yes (uses glasses) Hx Macular Degeneration: No - RENAL Hx Chronic Kidney Disease: Yes Hx Dialysis: Yes (T,TH,S) Hx Renal Failure: Yes - ENDOCRINE/METABOLIC Hx Endocrine Disorders: Yes Hx Diabetes Mellitus Type 2: Yes - HEMATOLOGICAL/ONCOLOGICAL Hx Blood Disorders: Yes (blood transfusion) Hx Anemia: Yes - INTEGUMENTARY Hx Dermatological Problems: No - MUSCULOSKELETAL/RHEUMATOLOGICAL Hx Musculoskeletal Disorders: Yes Hx Back Pain: Yes - GASTROINTESTINAL Hx Gastrointestinal Disorders: Yes (RECTAL CA WITH COLOSTOMY,GI BLEED) Hx Colostomy: Yes Hx Gastroesophageal Reflux: Yes - GENITOURINARY/GYNECOLOGICAL Hx Genitourinary Disorders: Yes (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,UTI) - PSYCHIATRIC Hx Psychophysiologic Disorder: Yes Hx Anxiety: Yes - SURGICAL HISTORY Hx Surgeries: Yes (COLOSTOMY) Hx Appendectomy: Yes Hx Cardiac Catheterization: Yes Hx Coronary Stent: Yes Other/Comment: colostomy - ANESTHESIA Hx Anesthesia: Yes Hx Anesthesia Reactions: No Hx Malignant Hyperthermia: No Meds Allergies/Adverse Reactions: Allergies Allergy/AdvReac Type Severity Reaction Status Date / Time No Known Allergies Allergy Verified 05/11/18 17:26 - Medications Medications: Current Medications Albuterol/Ipratropium (Duoneb 3 Mg/0.5 Mg (3 Ml) Ud) 3 ml IH Q2H PRN PRN Reason: Shortness of Breath Apixaban (Eliquis) 2.5 mg PO BID [facility]; Protocol Last Admin: 10/03/18 10:12 Dose: 2.5 mg Arformoterol Tartrate (Brovana) 15 mcg IH [id number] [facility] Last Admin: 10/03/18 08:31 Dose: 15 mcg Aspirin (Ecotrin) 81 mg PO DAILY [facility] Atorvastatin Calcium (Lipitor) 20 mg PO HS [facility] Budesonide (Pulmicort Respules) 0.5 mg IH [id number] [facility] Last Admin: 10/03/18 08:31 Dose: 0.5 mg Darbepoetin Timothy (Aranesp) 100 mcg IVP QWK [facility] Docusate Sodium (Colace) 100 mg PO TID [facility] Last Admin: 10/03/18 10:11 Dose: Not Given Doxycycline Hyclate (Doryx) 100 mg PO Q12 [facility]; Protocol Stop: 10/10/18 10:01 Last Admin: 10/03/18 10:12 Dose: 100 mg Meropenem 250 mg/ Sodium (Chloride) 100 mls @ 100 mls/hr IVPB Q12H [facility]; Protocol Stop: 10/10/18 07:31 Last Admin: 10/03/18 10:11 Dose: 100 mls/hr Insulin Detemir (Levemir) 20 unit SC Q12H [facility] Insulin Human Lispro (Humalog) 30 units SC ACTID [facility] Insulin Human Regular (Humulin R Med) 0 units SC ACHS [facility]; Protocol Last Admin: 10/03/18 08:58 Dose: Not Given Metoprolol Succinate (Toprol Xl) 100 mg PO DAILY [facility] Pantoprazole Sodium (Protonix Ec Tab) 40 mg PO 0600 [facility] Last Admin: 10/03/18 05:41 Dose: 40 mg Sevelamer HCl (Renagel) 1,600 mg PO TID [facility] Vitamin B Complex/Vit C/Folic Acid (Nephro-Holland) 1 tab PO 0800 [facility] Results - Vital Signs Recent Vital Signs: Last Vital Signs Temp 98 F 10/03/18 12:00 Pulse 92 H 10/03/18 12:00 Resp 18 10/03/18 12:00 BP 130/72 10/03/18 12:00 Pulse Ox 95 10/03/18 06:00 - Labs Result Diagrams: 10/03/18 05:30 10/03/18 05:30 Labs: Laboratory Results - last 24 hr 10/02/18 10/02/18 10/02/18 20:05 20:05 20:05 WBC 22.0 H D RBC 3.52 Hgb 9.8 L Hct 33.2 L MCV 94.3 D MCH 27.8 MCHC 29.5 L RDW 18.0 H Plt Count 317 MPV 10.6 Neut % (Auto) 87.1 H Lymph % (Auto) 8.5 L [place] % (Auto) 2.9 Eos % (Auto) 1.2 L Baso % (Auto) 0.3 Lymph # (Auto) 1.9 [place] # (Auto) 0.6 Eos # (Auto) 0.3 Baso # (Auto) 0.06 Absolute Neuts (auto) 19.17 H PT 12.4 INR 1.12 APTT 30.6 pO2 VBG pH VBG pCO2 VBG HCO3 VBG Total CO2 VBG O2 Sat (Calc) VBG Base Excess VBG Potassium Glucose Lactate FiO2 Sodium 138 Potassium 4.6 Chloride 105 Carbon Dioxide 22 Anion Gap 16 BUN 70 H Creatinine 6.2 H Est GFR ( Amer) 8 Est GFR (Non-Af Amer) 7 POC Glucose (mg/dL) Random Glucose 101 Hemoglobin A1c Calcium 9.1 Phosphorus 7.5 H Magnesium 1.6 L Total Bilirubin 0.5 AST 23 ALT 12 Alkaline Phosphatase 195 H Lactate Dehydrogenase Total Creatine Kinase Troponin I Total Protein 7.6 Albumin 3.5 Globulin 4.1 Albumin/Globulin Ratio 0.8 L Triglycerides Cholesterol LDL Cholesterol Direct HDL Cholesterol TSH 3rd Generation Venous Blood Potassium Influenza Typ A,B (EIA) 10/02/18 10/02/18 10/03/18 20:05 20:08 01:00 WBC RBC Hgb Hct MCV MCH MCHC RDW Plt Count MPV Neut % (Auto) Lymph % (Auto) [place] % (Auto) Eos % (Auto) Baso % (Auto) Lymph # (Auto) [place] # (Auto) Eos # (Auto) Baso # (Auto) Absolute Neuts (auto) PT INR APTT pO2 39 VBG pH 7.33 VBG pCO2 45.0 VBG HCO3 23.7 VBG Total CO2 25.1 VBG O2 Sat (Calc) 79.7 H VBG Base Excess -2.4 L VBG Potassium 4.6 Glucose 101 Lactate 1.0 FiO2 21.0 Sodium 140.0 Potassium Chloride 106.0 Carbon Dioxide Anion Gap BUN Creatinine Est GFR ( Amer) Est GFR (Non-Af Amer) POC Glucose (mg/dL) Random Glucose Hemoglobin A1c Calcium Phosphorus Magnesium Total Bilirubin AST ALT Alkaline Phosphatase Lactate Dehydrogenase 568 Total Creatine Kinase 25 L Troponin I < 0.01 D Total Protein Albumin Globulin Albumin/Globulin Ratio Triglycerides Cholesterol LDL Cholesterol Direct HDL Cholesterol TSH 3rd Generation Venous Blood Potassium 4.6 Influenza Typ A,B (EIA) Negative for flu a/b 10/03/18 10/03/18 10/03/18 05:30 05:30 05:30 WBC 17.8 H RBC 3.26 L Hgb 8.9 L Hct 30.3 L MCV 92.9 MCH 27.3 MCHC 29.4 L RDW 18.0 H Plt Count 322 MPV 11.0 Neut % (Auto) 78.1 H Lymph % (Auto) 18.1 L [place] % (Auto) 2.6 Eos % (Auto) 1.0 L Baso % (Auto) 0.2 Lymph # (Auto) 3.2 [place] # (Auto) 0.5 Eos # (Auto) 0.2 Baso # (Auto) 0.04 Absolute Neuts (auto) 13.86 H PT INR APTT pO2 189 H VBG pH 7.28 L VBG pCO2 51.0 VBG HCO3 24.0 VBG Total CO2 25.6 VBG O2 Sat (Calc) 99.3 H VBG Base Excess -3.3 L VBG Potassium 4.9 Glucose 90 Lactate 0.7 FiO2 21.0 Sodium 138.0 139 Potassium 4.9 Chloride 107.0 106 Carbon Dioxide 24 Anion Gap 14 BUN 72 H Creatinine 6.6 H Est GFR ( Amer) 8 Est GFR (Non-Af Amer) 6 POC Glucose (mg/dL) Random Glucose 91 Hemoglobin A1c Calcium 9.0 Phosphorus 8.6 H Magnesium 2.2 Total Bilirubin 0.5 AST 23 ALT 7 Alkaline Phosphatase 155 H D Lactate Dehydrogenase 430 Total Creatine Kinase 93 Troponin I 0.03 D Total Protein 6.8 Albumin 3.0 Globulin 3.8 Albumin/Globulin Ratio 0.8 L Triglycerides 192 H Cholesterol 181 LDL Cholesterol Direct 85 HDL Cholesterol 29 TSH 3rd Generation Venous Blood Potassium 4.9 Influenza Typ A,B (EIA) 10/03/18 10/03/18 10/03/18 05:30 05:30 07:15 WBC RBC Hgb Hct MCV MCH MCHC RDW Plt Count MPV Neut % (Auto) Lymph % (Auto) [place] % (Auto) Eos % (Auto) Baso % (Auto) Lymph # (Auto) [place] # (Auto) Eos # (Auto) Baso # (Auto) Absolute Neuts (auto) PT INR APTT pO2 VBG pH VBG pCO2 VBG HCO3 VBG Total CO2 VBG O2 Sat (Calc) VBG Base Excess VBG Potassium Glucose Lactate FiO2 Sodium Potassium Chloride Carbon Dioxide Anion Gap BUN Creatinine Est GFR ( Amer) Est GFR (Non-Af Amer) POC Glucose (mg/dL) 89 Random Glucose Hemoglobin A1c 6.6 H Calcium Phosphorus Magnesium Total Bilirubin AST ALT Alkaline Phosphatase Lactate Dehydrogenase Total Creatine Kinase Troponin I Total Protein Albumin Globulin Albumin/Globulin Ratio Triglycerides Cholesterol LDL Cholesterol Direct HDL Cholesterol TSH 3rd Generation 0.48 Venous Blood Potassium Influenza Typ A,B (EIA) 10/03/18 10/03/18 11:07 11:25 WBC RBC Hgb Hct MCV MCH MCHC RDW Plt Count MPV Neut % (Auto) Lymph % (Auto) [place] % (Auto) Eos % (Auto) Baso % (Auto) Lymph # (Auto) [place] # (Auto) Eos # (Auto) Baso # (Auto) Absolute Neuts (auto) PT INR APTT pO2 VBG pH VBG pCO2 VBG HCO3 VBG Total CO2 VBG O2 Sat (Calc) VBG Base Excess VBG Potassium Glucose Lactate FiO2 Sodium Potassium Chloride Carbon Dioxide Anion Gap BUN Creatinine Est GFR ( Amer) Est GFR (Non-Af Amer) POC Glucose (mg/dL) 115 H Random Glucose Hemoglobin A1c Calcium Phosphorus Magnesium Total Bilirubin AST ALT Alkaline Phosphatase Lactate Dehydrogenase Total Creatine Kinase Troponin I 0.02 D Total Protein Albumin Globulin Albumin/Globulin Ratio Triglycerides Cholesterol LDL Cholesterol Direct HDL Cholesterol TSH 3rd Generation Venous Blood Potassium Influenza Typ A,B (EIA)
[2018-10-03] MEDS: Insulin Lispro 1 UNITS/0.01 ML SC SCH (14:57)
[2018-10-03] MEDS: Insulin Detemir 100 units/ml Vial (Levemir) SC SCH ×2 (17:48→22:23)
[2018-10-03 18:45] LABS: TROPONIN I 0.02 ng/mL
--- NOTE | 2018-10-03 22:38 | CON ---
DATE: 10/03/2018 REFERRING PHYSICIAN: Dr. Ray/Dr. Florian. REASON FOR CONSULTATION: Chronic lung disease, hypoventilation syndrome, and sleep apnea syndrome. HISTORY OF PRESENT ILLNESS: This is a 62-year-old female, well-known to me from previous admission with multiple medical issues. She is morbidly obese. History of respiratory failure, hypoventilation syndrome, sleep apnea syndrome, suspected noncompliant with CPAP/BiPAP, renal failure, dialysis dependent, hypertension, hyperlipidemia, coronary artery disease, history of coronary stent, history of rectal carcinoma requiring surgery and colostomy. While on dialysis, did not feel well, had a fever, chills, shortness of breath. Presently, admitted to Telemetry. She is lying in the bed, not very compliant with CPAP and BiPAP, feels weak and tired. Mild cough. No nausea, no vomiting. No diarrhea. No leg swelling. PAST MEDICAL HISTORY: As per history of present illness. Also has chronic anemia. ALLERGIES: NONE KNOWN. SOCIAL HISTORY: Nonsmoker, nondrinker. FAMILY HISTORY: No significant cardiopulmonary disease reported. MEDICATIONS: She is on Aranesp 100 mcg weekly, Brovana inhaled twice a day, Colace 100 mg three times a day, doxycycline 100 mg twice a day, albuterol/Atrovent nebulizer every 2 hours p.r.n., Ecotrin 81 mg daily, Eliquis 2.5 mg twice a day, insulin coverage also on Levemir 20 units subcu every 12 hours, Lipitor 20 mg at bedtime, meropenem is 250 mg every 12 hours, Nephro vitamins daily, Protonix 40 mg daily, Pulmicort inhaled twice a day. She is on Toprol XL 100 mg daily. REVIEW OF SYSTEMS: No headache. No rhinitis. Has some cough, shortness of breath, body aches and pains. No vomiting. No abdominal pain. No leg pain or leg swelling. PHYSICAL EXAMINATION: VITAL SIGNS: Temperature is 98, heart rate 92, respiratory is 20, blood pressure 130/72, pulse of 95% on 2 L nasal cannula. HEENT: Moist mucous membrane. Crowded airway. Mallampatti score is 4. NECK: Supple. No JVD. Has a short thick neck. LUNGS: Have scattered rhonchi. HEART: S1 and S2. ABDOMEN: Soft, nontender, nondistended. Colostomy bag looks okay. EXTREMITIES: There is not much edema. NEUROLOGIC: Awake and follows simple commands. LABORATORY DATA: Shows hemoglobin 8.9, hematocrit 30.3, WBC 17.8, platelet is 322, INR 1.12, and PTT 31. VBG done on admission shows pH 7.28, pCO2 is 51, O2 is 189, this is on supplemental oxygen. Sodium 139, potassium 4.9, chloride 106, bicarbonate 24, BUN 72, creatinine 6.6, glucose 115, hemoglobin A1c 6.6, calcium 9.0, phosphorus 8.6, magnesium 2.2, AST 23, ALT 7, alk phos is 155, troponin less than 0.03. Albumin 3.0, triglyceride 192, cholesterol 181. TSH is 0.048. Serology for influenza A and B is negative. She had a chest x-ray done on admission, shows no active pulmonary disease. IMPRESSION AND PLAN: 1. Chronic obstructive lung disease. 2. Morbid obesity. 3. Hypoventilation syndrome. 4. Renal failure, dialysis dependent. 5. History of pulmonary embolism. 6. Deep venous thrombosis in the past 7. Pulmonary hypertension. Case discussed with Dr. Florian. I spoke to the patient in detail. We will try BiPAP 8/5 with 30% oxygen while sleeping. Avoid nocturnal sedatives. Continue anticoagulation, gastric prophylaxis, pressure ulcer precaution, out of bed to chair if possible. Get physical therapy involved. Antibiotics as per infectious diseases. I will follow with you. Pamela Ayala MD
--- NOTE | 2018-10-04 04:04 | CON ---
DATE: 10/03/2018 LOCATION: The patient was seen earlier today in room 263, bed 2. CHIEF COMPLAINT: Dizziness of several days, low-grade temperature. HISTORY OF PRESENT ILLNESS: A 62-year-old female known to me from previous admission with super morbid obesity with BMI of 48, congestive heart failure, coronary artery disease, hypertension, diabetes, end-stage renal disease on hemodialysis, hyperlipidemia, chronic obstructive lung disease, rectal cancer, and VRE urinary tract infection and ESBL urinary tract infection. The patient has abdominal wall cellulitis. REVIEW OF SYSTEMS: Reveals the patient to have low-grade fevers, no chills. There is mild shortness of breath. No abdominal pain, diarrhea, or constipation. A 12-point review of systems is performed. PAST MEDICAL HISTORY: Significant for end-stage renal disease, pulmonary emboli, congestive heart failure, coronary artery disease, hypertension, diabetes, hyperlipidemia, chronic obstructive lung disease, rectal cancer, abdominal wall cellulitis, VRE urinary tract infection, ESBL urinary tract infection. PAST SURGICAL HISTORY: Significant for ventral hernia, colostomy, appendectomy, IVC filter, cardiac stent. ALLERGIES: THE PATIENT HAS NO KNOWN ALLERGIES. MEDICATIONS AT HOME: Noted. PHYSICAL EXAMINATION GENERAL: The patient is in bed. VITAL SIGNS: Temperature of 98, T-max is 100.3, blood pressure is 130/70, respiratory rate of 18, and heart rate of 92. HEENT: Unremarkable. NECK: Supple. LUNGS: Decreased breath sounds. HEART: Normal S1 and S2. ABDOMEN: Soft. LABORATORY DATA: Reveals the patient's white count of 22,000, hemoglobin of 9, platelets of 317. Chemistries reveals a BUN of 72, creatinine of 6.6, alk phos is 135. Serology is noted. Microbiology is pending. CAT scan of the abdomen and pelvis reveals the patient has no intraabdominal abscess, and lower thorax is unremarkable. The patient's chest x-ray shows no active disease. REVIEW OF ORDERS: Dr. Raven Wilkinson's consultation is reviewed. ASSESSMENT AND PLAN: A 62-year-old with; 1. Systemic inflammatory response syndrome. No obvious source for the leukocytosis, low-grade fevers. We will check on the lanier cultures. CT of the abdomen is negative. Chest x-ray is negative. EKG is noted; QTC of 460. Influenza is negative. We will treat the patient with intermittent vancomycin, meropenem, and doxycycline pending culture results. We will follow with you. Lawrence Cheek MD
[2018-10-04] MEDS: Pantoprazole 40 mg EC Tab PO SCH (05:52)
[2018-10-04 06:51] LABS: BASO # 0.02 K/mm3 (0.0-2.0); BASO % 0.2 % (0.0-3.0); EOS # 0.6 (0.0-0.7); EOS % 6.4 % (1.5-5.0); HEMOGLOBIN 9.2 g/dL (12.0-16.0); LYMPH # 2.5 (1.2-3.4); LYMPH % 27.3 % (22.0-35.0); MEAN CELL VOLUME 92.1 fl (80.0-105.0); MEAN CORPUSCULAR HEMOGLOBIN 26.9 pg (25.0-35.0); MEAN CORPUSCULAR HGB CONC 29.2 g/dl (31.0-37.0); MONO # 0.3 (0.1-0.6); MONO % 3.3 % (1.0-6.0); RBC 3.42 10^6/uL (3.5-6.1); RED CELL DISTRIBUTION WIDTH 18.2 % (11.5-14.5)
[2018-10-04 07:10] LABS: ALB/GLOB RATIO 0.8 (1.1-1.8); CALCIUM 8.6 mg/dL (8.4-10.5)
[2018-10-04] MEDS ORDERED: Pantoprazole 20 mg EC Tab PO SCH (07:30)
[2018-10-04] MEDS: Budesonide 0.5 mg/2 ml Inhal Susp UD IH SCH ×2 (07:32→20:12)
[2018-10-04] MEDS: Arformoterol 15 mcg/2 ml Inh Sol IH SCH ×2 (07:32→20:12)
--- NOTE | 2018-10-04 09:28 | CP.PCM.PN ---
Subjective - Date & Time of Evaluation Date of Evaluation: 10/04/18 Time of Evaluation: 09:28 - Subjective Subjective: General Surgery Dr. Mckeon Pt seen and examined @bedside. No acute events overnight. Pt has no complaints. reports continued, unchanged weakness and B/L LE pain. denies F/C, N/V, abd pain, anorexia, D/C. (+)ostomy output Objective - Vital Signs/Intake and Output Vital Signs (last 24 hours): Temp Pulse Resp BP Pulse Ox 98.1 F 89 20 123/71 95 10/04/18 06:00 10/04/18 06:00 10/04/18 06:00 10/04/18 06:00 10/04/18 06:00 - Medications Medications: Current Medications Albuterol/Ipratropium (Duoneb 3 Mg/0.5 Mg (3 Ml) Ud) 3 ml IH Q2H PRN PRN Reason: Shortness of Breath Apixaban (Eliquis) 2.5 mg PO BID [facility]; Protocol Last Admin: 10/03/18 10:12 Dose: 2.5 mg Arformoterol Tartrate (Brovana) 15 mcg IH [id number] [facility] Last Admin: 10/04/18 07:32 Dose: 15 mcg Aspirin (Ecotrin) 81 mg PO DAILY [facility] Last Admin: 10/03/18 14:58 Dose: Not Given Atorvastatin Calcium (Lipitor) 20 mg PO HS [facility] Last Admin: 10/03/18 22:22 Dose: 20 mg Budesonide (Pulmicort Respules) 0.5 mg IH [id number] [facility] Last Admin: 10/04/18 07:32 Dose: 0.5 mg Darbepoetin Timothy (Aranesp) 100 mcg IVP QWK [facility] Docusate Sodium (Colace) 100 mg PO TID [facility] Last Admin: 10/03/18 14:56 Dose: Not Given Doxycycline Hyclate (Doryx) 100 mg PO Q12 [facility]; Protocol Stop: 10/10/18 10:01 Last Admin: 10/03/18 22:22 Dose: 100 mg Meropenem 250 mg/ Sodium (Chloride) 100 mls @ 100 mls/hr IVPB Q12H [facility]; Protocol Stop: 10/10/18 07:31 Last Admin: 10/03/18 22:21 Dose: 100 mls/hr Insulin Detemir (Levemir) 20 unit SC Q12H [facility] Last Admin: 10/03/18 22:23 Dose: 20 units Insulin Human Lispro (Humalog) 30 units SC ACTID [facility] Last Admin: 10/03/18 14:57 Dose: Not Given Insulin Human Regular (Humulin R Med) 0 units SC ACHS [facility]; Protocol Last Admin: 10/03/18 22:24 Dose: Not Given Metoprolol Succinate (Toprol Xl) 100 mg PO DAILY [facility] Pantoprazole Sodium (Protonix Ec Tab) 40 mg PO 0600 [facility] Last Admin: 10/04/18 05:52 Dose: 40 mg Sevelamer HCl (Renagel) 1,600 mg PO TID [facility] Last Admin: 10/03/18 17:49 Dose: Not Given Vitamin B Complex/Vit C/Folic Acid (Nephro-Holland) 1 tab PO 0800 [facility] - Labs Labs: 10/04/18 06:20 10/04/18 06:20 PT 12.4 SECONDS (9.4-12.5) 10/02/18 20:05 INR 1.12 10/02/18 20:05 APTT 30.6 Seconds (26.9-38.3) 10/02/18 20:05 - Constitutional Appears: Non-toxic, No Acute Distress - Head Exam Head Exam: NORMAL INSPECTION - Eye Exam Eye Exam: Normal appearance - ENT Exam ENT Exam: Mucous Membranes Moist - Respiratory Exam Respiratory Exam: NORMAL BREATHING PATTERN. absent: Accessory Muscle Use, Respiratory Distress - Cardiovascular Exam Cardiovascular Exam: absent: Bradycardia, Tachycardia, REGULAR RHYTHM - GI/Abdominal Exam GI & Abdominal Exam: Soft. absent: Distended, Guarding, Tenderness, Rebound Additional comments: good ostomy output - Extremities Exam Extremities Exam: Calf Tenderness - Neurological Exam Neurological Exam: Alert, Awake, Oriented x3 - Psychiatric Exam Psychiatric exam: Normal Affect, Normal Mood - Skin Skin Exam: Dry, Intact, Normal Color, Warm Assessment and Plan - Assessment and Plan (Free Text) Assessment: 62 y/o F s/p parastoma hernia repair 04/2018 for SBO, currently admitted for leukocytosis (resolved) and weakness (unchanged), c/o B/L LE pain (unchanged) Plan: - cont diet as tolerated - monitor ostomy output - f/u B/L LE duplex - cont home anticoagulation - cont Abx per ID - cont medical management of multiple comorbidities - no surgical intervention at this time - please reconsult if needed Pt discussed w/ Dr. Mike Wilkinson PGY3
[2018-10-04] MEDS: Insulin Lispro 1 UNITS/0.01 ML SC SCH ×3 (09:29→17:27)
[2018-10-04] MEDS: Insulin Reg-MEDIUM-Coverage SC SCH ×4 (09:29→21:25)
[2018-10-04] MEDS: Insulin Detemir 100 units/ml Vial (Levemir) SC SCH ×2 (09:33→21:30)
[2018-10-04] MEDS: Multivitamin Vitamin B Complex (Nephro-Vite) Tab PO SCH (09:35)
[2018-10-04] MEDS: Metoprolol Succinate 100 mg XL Tab PO SCH (09:36)
[2018-10-04] MEDS ORDERED: Metoprolol Succinate 100 mg XL Tab PO SCH (10:00)
--- NOTE | 2018-10-04 10:42 | US ---
HISTORY: Leg pain and swelling. Evaluate for DVT PHYSICIAN(S): Raleigh Arevalo MD. TECHNIQUE: Duplex sonography and color-flow Doppler with graded compression were used to evaluate the deep venous systems of both lower extremities. Marcy is very limited by body habitus and edema P FINDINGS: The visualized deep venous systems of both lower extremities are sonographically normal and compressible. Normal wave forms and augmentation are seen. There is no sonographic evidence for deep venous thrombosis in the visualized segments of both lower extremities. IMPRESSION: No sonographic evidence for deep venous thrombosis in the visualized segments of both lower extremities. Very limited study.
--- NOTE | 2018-10-04 12:31 | PN ---
DATE: 10/04/2018 PULMONARY PROGRESS NOTE REFERRING PHYSICIAN: Florentino Lewis MD SUBJECTIVE: The patient seen sitting up in bed. No acute distress. No overnight events reported. Refused BiPAP machine last night. The patient states that she is just having some bilateral lower extremity pain. No headache, rhinitis, cough, shortness of breath, chest pain, abdominal pain, nausea, vomiting, diarrhea or leg swelling reported. OBJECTIVE: VITAL SIGNS: Blood pressure 123/71, pulse 89, temperature 98.1, oxygen saturation 95 nasal cannula. GENERAL: No acute distress. HEENT: Moist mucous membranes. Crowded airway. Mallampati score 4. NECK: Supple. No JVD. LUNGS: Few scattered rhonchi bilaterally. CARDIOVASCULAR: S1, S2. ABDOMEN: Soft, nontender. No distention. No organomegaly. Obese. Colostomy bag present, patent. EXTREMITIES: Trace bilateral lower extremity edema. NEUROLOGIC: Awake and alert and verbal. Following commands. MEDICATIONS: Reviewed. DuoNeb 3 mL inhalation every 2 hours p.r.n., Eliquis 2.5 mg twice a day, Brovana 15 mcg inhalation every 12 hours, aspirin 81 mg daily, Lipitor 20 mg at bedtime, Pulmicort 0.5 mg inhalation every 12 hours, Aranesp 100 mcg IV push weekly, Colace 100 mg three times a day, doxycycline 100 mg every 12 hours, Levemir 20 units subcu every 12 hours, Humalog 30 units subcu before meals 3 times a day, Humulin R sliding scale before meals and at bedtime, meropenem 250 mg every 12 hours, metoprolol succinate 100 mg daily, Protonix 40 mg daily, Renagel 1600 mg 3 times a day, Nephro-Holland 1 tablet daily. LABORATORY DATA: Reviewed. WBC 9, RBC 3.42, hemoglobin 9.2, hematocrit 31.5, platelets 259. Sodium 135, potassium 4, chloride 98, carbon dioxide 28, anion gap 13, BUN 31, creatinine 4. GFR 11. POC glucose 76, random glucose 64. Calcium 8.6, phosphorus 5.9, magnesium 1.8. Total bilirubin 0.4, AST 30, ALT 7, alkaline phosphatase 183. Total protein 6.9, albumin 3, globulin 3.9, albumin-globulin ratio 0.9. Influenza negative. Blood culture primary, no growth for 24 hours. Extremity ultrasound, no sonographic evidence of deep venous thrombosis in both lower extremities. Abdomen/pelvis CT shows no evidence of intra-abdominal abscess. IMPRESSION AND PLAN: Chronic obstructive lung disease, morbid obesity, hypoventilation syndrome, renal failure, dialysis dependent, history of pulmonary embolism, deep venous thrombosis in the past, pulmonary hypertension, systemic inflammatory response syndrome. Continue antibiotics per Infectious Disease. Continue to encourage BiPAP use at bedtime. Sleep apnea precautions. Head of bed elevated 45 degree. Avoid nocturnal sedation. Continue gastric prophylaxis. The patient is on anticoagulation therapy. Pressure ulcer precautions. Recommend out of bed to chair. The patient will benefit from physical therapy. The patient was seen and examined with Dr. Ayala. Discussed assessment and plan as described above. The patient was seen and examined by Breezy Schafer, nurse practitioner. Discussed assessment and plan as described above. Thank you for this consult. We will follow with you. Breezy Schafer APN Pamela Ayala MD
--- NOTE | 2018-10-04 13:34 | CP.PCM.PCO ---
Physician Communication Note - Physician Communication Note Physician Communication Note: pt.more alert today,cx neg,ct abdom neg,leukocytosis better,antibx per ID
--- NOTE | 2018-10-04 13:34 | CP.PCM.PN ---
Subjective - Date & Time of Evaluation Date of Evaluation: 10/04/18 Time of Evaluation: 13:33 - Subjective Subjective: Assessment: Stable sepsis ESRD on HD TTS via permacath left adrenal adenoma, Rt renal hyperdense cyst chronic hypercapnic respi failure Diabetic chronic Kidney Disease (E11.22) Hypertensive Chronic Kidney Disease (I12.9) Anemia Vit D def morbid obesity, CAD s/p stent, COPD/SUMMER, rectal ca s/p colostomy, hx of SBO and mesh infection Plan HD as per TTS schedule. nephrovite 1 tab daily HTN control with meds as ordered. pt not on most of BP meds these days and hence d/deni PRBC as needed, on weekly aransep supplement lytes as needed phos binders added ID and surgery following Adrenal adenoma work up with plasma renin/aldosterone, plasma metanephrine NEGATIVE. will need outpt 1 mg dexa suppression test Dose meds/antibiotics for reduced GFR. Avoid fleets enema/magnesium based laxatives. Avoid nephrotoxins/NSAIDs Glycemic control Further work up/management as per primary team Thanks for allowing me to participate in care of your patient. Will follow patient with you. Please call if any Qs. had d/w team Dr Dae Dawn Office: [phone] Chief Complaint; not feeling well Reason for consult: dialysis HPI: Pt is a 62 F with hx of diabetes Mellitus (15 years), hypertension (years), morbid obesity, CAD s/p stent, COPD/SUMMER, rectal ca s/p colostomy, left adrenal adenoma, Rt renal cyst, chronic hypercapnic respi failure, CKD 3 with baseline cr 1.2-1.3 with SHELBI started HD 05/28/18 and no renal recovery, ESRD now, repeated recent admissions to [facility] for sepsis. she was d/c from rehab recently and sent after HD yesterday as she was c/o chills pain abdomen and not feeling well still feels sick ROS: feels better today. denies SOB. denies back and abdomen pain. not much urine output. rest all other neg Physical Examination: General Appearance: comfortable, morbidly obese. not in acute respi distress bet ter appearing Vitals reviewed and noted as below Head; Atraumatic, normocephalic EYES: Pupils are equal, round and reactive to light accommodation. Eye muscles and extraocular movement intact. Sclera is anicteric. Neck; supple no lymphadenopathy, no thyromegaly or bruit Lungs: normal respiratory rate/effort. Breath sounds bilateral equal, diminished at bases but overall limited exam due to her obesity Heart: normal rate. s1s2 normal. No rub or gallop. Extremities: trace edema, No varicose veins Neurological: Patient is awake alert follow commands Skin: Warm and dry. Normal turgor. No rash. Palpitation: Normal elasticity for age Abdomen: Abdomen is + colostomy. dressing overlying wound + tenderness to palpation Psych: deferred MSK: no joint tenderness or swelling. Digits and nails normal, no deformity : kidney or bladder not palpable. access: permacath Labs/imaging reviewed. Past medical history, past surgical history, family history, social history, allergy reviewed and noted as below Family hx: no hx of CKD. Rest non-contributory Objective - Vital Signs/Intake and Output Vital Signs (last 24 hours): Temp Pulse Resp BP Pulse Ox 98.1 F 89 20 123/71 95 10/04/18 06:00 10/04/18 09:36 10/04/18 06:00 10/04/18 09:36 10/04/18 06:00 - Medications Medications: Current Medications Albuterol/Ipratropium (Duoneb 3 Mg/0.5 Mg (3 Ml) Ud) 3 ml IH Q2H PRN PRN Reason: Shortness of Breath Apixaban (Eliquis) 2.5 mg PO BID [facility]; Protocol Last Admin: 10/04/18 09:28 Dose: 2.5 mg Arformoterol Tartrate (Brovana) 15 mcg IH [id number] [facility] Last Admin: 10/04/18 07:32 Dose: 15 mcg Aspirin (Ecotrin) 81 mg PO DAILY [facility] Last Admin: 10/04/18 09:28 Dose: 81 mg Atorvastatin Calcium (Lipitor) 20 mg PO HS [facility] Last Admin: 10/03/18 22:22 Dose: 20 mg Budesonide (Pulmicort Respules) 0.5 mg IH [id number] [facility] Last Admin: 10/04/18 07:32 Dose: 0.5 mg Darbepoetin Timothy (Aranesp) 100 mcg IVP QWK [facility] Docusate Sodium (Colace) 100 mg PO TID [facility] Last Admin: 10/04/18 09:27 Dose: 100 mg Doxycycline Hyclate (Doryx) 100 mg PO Q12 [facility]; Protocol Stop: 10/10/18 10:01 Last Admin: 10/04/18 09:28 Dose: 100 mg Meropenem 250 mg/ Sodium (Chloride) 100 mls @ 100 mls/hr IVPB Q12H [facility]; Protocol Stop: 10/10/18 07:31 Last Admin: 10/04/18 09:34 Dose: 100 mls/hr Insulin Detemir (Levemir) 20 unit SC Q12H [facility] Last Admin: 10/04/18 09:33 Dose: 20 units Insulin Human Lispro (Humalog) 30 units SC ACTID [facility] Last Admin: 10/04/18 09:29 Dose: Not Given Insulin Human Regular (Humulin R Med) 0 units SC ACHS [facility]; Protocol Last Admin: 10/04/18 09:29 Dose: Not Given Metoprolol Succinate (Toprol Xl) 100 mg PO DAILY [facility] Last Admin: 10/04/18 09:36 Dose: 100 mg Pantoprazole Sodium (Protonix Ec Tab) 40 mg PO 0600 [facility] Last Admin: 10/04/18 05:52 Dose: 40 mg Sevelamer HCl (Renagel) 1,600 mg PO TID [facility] Last Admin: 10/04/18 09:36 Dose: 1,600 mg Vitamin B Complex/Vit C/Folic Acid (Nephro-Holland) 1 tab PO 0800 [facility] Last Admin: 10/04/18 09:35 Dose: 1 tab - Labs Labs: 10/04/18 06:20 10/04/18 06:20 PT 12.4 SECONDS (9.4-12.5) 10/02/18 20:05 INR 1.12 10/02/18 20:05 APTT 30.6 Seconds (26.9-38.3) 10/02/18 20:05
--- NOTE | 2018-10-04 16:59 | CP.PCM.PN ---
<Darby Candelario - Last Filed: 10/04/18 19:27> Subjective - Date & Time of Evaluation Date of Evaluation: 10/04/18 Time of Evaluation: 09:30 - Subjective Subjective: INTERNAL MEDICINE PROGRESS NOTE FOR DR. DAVID Candelario PGY1 62 y/o F with PMH of morbid obesity (class III), ESRD on HD TTS s/p L IJ long- term hemosplit HD catheter placement (05/2018), CAD s/p LCX stent (03/2014), b/l PE s/p catheter directed thrombolysis & infrarenal IVC filter placement (12/2013) on eliquis, pulmonary HTN, COPD, rectal adenocarcinoma s/p chemoradiation(capecitabine (2013), s/p debulking surgery ([facility], 2014) abdominal perineal resection, chemoradiation s/p loop transverse colostomy(12/2013), I&D L thigh (01/2016), SBO s/p ex-lap ventral hernia repair w/ mesh & colostomy revision (04/2018), HTN, IDDM2, HLD, anemia, lumbar radiculopathy presented to ED after being sent from hemodialysis for generalized weakness. Pt admitted initially for sepsis 2/2 abdominal wounds that has been ruled out Pt was recently discharged from [facility] to rehab facilty where she remained for about 3 weeks. She was subsequently discharged home due to insurance issues. Pt seen and examined at bedside this am. No acute events overnight. Pt denies complaints today. Objective - Vital Signs/Intake and Output Vital Signs (last 24 hours): Temp Pulse Resp BP Pulse Ox 98.1 F 89 20 123/71 95 10/04/18 06:00 10/04/18 09:36 10/04/18 06:00 10/04/18 09:36 10/04/18 06:00 - Medications Medications: Current Medications Albuterol/Ipratropium (Duoneb 3 Mg/0.5 Mg (3 Ml) Ud) 3 ml IH Q2H PRN PRN Reason: Shortness of Breath Apixaban (Eliquis) 2.5 mg PO BID JR; Protocol Last Admin: 10/04/18 09:28 Dose: 2.5 mg Arformoterol Tartrate (Brovana) 15 mcg IH [id number] Last Admin: 10/04/18 07:32 Dose: 15 mcg Aspirin (Ecotrin) 81 mg PO DAILY [facility] Last Admin: 10/04/18 09:28 Dose: 81 mg Atorvastatin Calcium (Lipitor) 20 mg PO HS [facility] Last Admin: 10/03/18 22:22 Dose: 20 mg Budesonide (Pulmicort Respules) 0.5 mg IH [id number] [facility] Last Admin: 10/04/18 07:32 Dose: 0.5 mg Darbepoetin Timothy (Aranesp) 100 mcg IVP QWK [facility] Docusate Sodium (Colace) 100 mg PO TID [facility] Last Admin: 10/04/18 14:00 Dose: 100 mg Doxycycline Hyclate (Doryx) 100 mg PO Q12 [facility]; Protocol Stop: 10/10/18 10:01 Last Admin: 10/04/18 09:28 Dose: 100 mg Meropenem 250 mg/ Sodium (Chloride) 100 mls @ 100 mls/hr IVPB Q12H [facility]; Protocol Stop: 10/10/18 07:31 Last Admin: 10/04/18 09:34 Dose: 100 mls/hr Insulin Detemir (Levemir) 20 unit SC Q12H [facility] Last Admin: 10/04/18 09:33 Dose: 20 units Insulin Human Lispro (Humalog) 30 units SC ACTID [facility] Last Admin: 10/04/18 14:00 Dose: Not Given Insulin Human Regular (Humulin R Med) 0 units SC ACHS [facility]; Protocol Last Admin: 10/04/18 16:24 Dose: Not Given Metoprolol Succinate (Toprol Xl) 100 mg PO DAILY [facility] Last Admin: 10/04/18 09:36 Dose: 100 mg Pantoprazole Sodium (Protonix Ec Tab) 40 mg PO 0600 [facility] Last Admin: 10/04/18 05:52 Dose: 40 mg Sevelamer HCl (Renagel) 1,600 mg PO TID [facility] Last Admin: 10/04/18 14:01 Dose: 1,600 mg Vitamin B Complex/Vit C/Folic Acid (Nephro-Holland) 1 tab PO 0800 [facility] Last Admin: 10/04/18 09:35 Dose: 1 tab - Labs Labs: 10/04/18 06:20 10/04/18 06:20 PT 12.4 SECONDS (9.4-12.5) 10/02/18 20:05 INR 1.12 10/02/18 20:05 APTT 30.6 Seconds (26.9-38.3) 10/02/18 20:05 - Constitutional Appears: Non-toxic, No Acute Distress, Chronically Ill, Other (morbidly obese) - Head Exam Head Exam: NORMAL INSPECTION - Eye Exam Eye Exam: EOMI, Normal appearance - ENT Exam ENT Exam: Mucous Membranes Moist, Normal Exam - Neck Exam Neck Exam: Normal Inspection Additional comments: R sided central access in place, no purulence/erythema noted - Respiratory Exam Respiratory Exam: Clear to Ausculation Bilateral, NORMAL BREATHING PATTERN - Cardiovascular Exam Cardiovascular Exam: REGULAR RHYTHM, +S1, +S2 - GI/Abdominal Exam GI & Abdominal Exam: Soft. absent: Tenderness Additional comments: Mucus colostomy in place, pink, moist draining brown feces Multiple well approximated abdominal wounds present, all of which appear c/d/i, no erythema, purulence, discharge noted - Extremities Exam Extremities Exam: Normal Inspection. absent: Calf Tenderness - Back Exam Back Exam: NORMAL INSPECTION - Neurological Exam Neurological Exam: Alert, Awake - Psychiatric Exam Psychiatric exam: Anxious, Normal Mood - Skin Skin Exam: Dry, Intact, Warm Assessment and Plan - Assessment and Plan (Free Text) Assessment: 62 y/o F with PMH of morbid obesity (class III), ESRD on HD TTS s/p L IJ long- term hemosplit HD catheter placement (05/2018), CAD s/p LCX stent (03/2014), b/l PE s/p catheter directed thrombolysis & infrarenal IVC filter placement (12/2013) on eliquis, pulmonary HTN, COPD, rectal adenocarcinoma s/p chemoradiation(capecitabine (2013), s/p debulking surgery ([facility], 2014) abdominal perineal resection, chemoradiation s/p loop transverse colostomy(12/2013), I&D L thigh (01/2016), SBO s/p ex-lap ventral hernia repair w/ mesh & colostomy revision (04/2018), HTN, IDDM2, HLD, anemia, lumbar radiculopathy presented to ED after being sent from hemodialysis for generalized weakness. Pt admitted initially for sepsis 2/2 abdominal wounds that has been ruled out Plan: SIRS Resolved. Remains afebrile, tachycardia resolved, leukocytosis resolved today. No signs of acute abdomen. CXR (10/02): No active disease CT A/P (10/03): No evidence of intra-abdominal abscess. Blood cultures NKTD (10/02). Procalcitonin: 1.04(10/04) Currently on merropenem/doxycycline per ID recs ID following, appreciate recs ESRD on HD TTS Will continue current regiment Continue Aranesp, phosphate binder Nephrology following CAD s/p LCx stent Will continue home aspirin, statin, b-joseph Hx of PE s/p infrarenal IVC filter continue home eliquis COPD Not in acute exacerbation continue duoneb prn, budesonide S/p multiple abdominal surgeries Abdominal wound care per surgery team Surgery recs appreciated Wound care nurse for wounds SUMMER Pt has been refusing BiPAP Bipap prn HS Pulmonology following IDDM2 Continue home lispro 30u ACTID, levemir 20u Q12 HTN BP have been controlled continue home metoprolol HLD continue home atorvastatin DVT/GI PPx: SCD&eliquis/protonix Dispo: Pt will require Cleve lift at home. Pending rehab/discharge home per PT recs Case reviewed with attending physician Dr. David Candelario PGY1 <Florentino Lewis - Last Filed: 10/05/18 15:44> Objective - Vital Signs/Intake and Output Vital Signs (last 24 hours): Temp Pulse Resp BP Pulse Ox 97.9 F 81 20 132/69 97 10/05/18 09:01 10/05/18 09:01 10/05/18 12:00 10/05/18 12:00 10/05/18 09:01 Intake and Output: 10/05/18 10/05/18 06:59 18:59 Intake Total 720 120 Balance 720 120 - Medications Medications: Current Medications Albuterol/Ipratropium (Duoneb 3 Mg/0.5 Mg (3 Ml) Ud) 3 ml IH Q2H PRN PRN Reason: Shortness of Breath Apixaban (Eliquis) 2.5 mg PO BID [facility]; Protocol Last Admin: 10/05/18 11:19 Dose: Not Given Arformoterol Tartrate (Brovana) 15 mcg IH [id number] [facility] Last Admin: 10/05/18 07:56 Dose: 15 mcg Aspirin (Ecotrin) 81 mg PO DAILY [facility] Last Admin: 10/05/18 11:21 Dose: Not Given Atorvastatin Calcium (Lipitor) 20 mg PO HS [facility] Last Admin: 10/04/18 21:25 Dose: 20 mg Budesonide (Pulmicort Respules) 0.5 mg IH [id number] [facility] Last Admin: 10/05/18 07:56 Dose: 0.5 mg Darbepoetin Timothy (Aranesp) 100 mcg IVP QWK [facility] Docusate Sodium (Colace) 100 mg PO TID [facility] Last Admin: 10/05/18 11:19 Dose: Not Given Doxycycline Hyclate (Doryx) 100 mg PO Q12 [facility]; Protocol Stop: 10/10/18 10:01 Last Admin: 10/05/18 12:32 Dose: 100 mg Meropenem 250 mg/ Sodium (Chloride) 100 mls @ 100 mls/hr IVPB Q12H [facility]; Protocol Stop: 10/10/18 07:31 Last Admin: 10/05/18 06:33 Dose: 100 mls/hr Insulin Detemir (Levemir) 20 unit SC Q12H [facility] Last Admin: 10/05/18 11:22 Dose: Not Given Insulin Human Lispro (Humalog) 30 units SC ACTID [facility] Last Admin: 10/05/18 11:20 Dose: Not Given Insulin Human Regular (Humulin R Med) 0 units SC ACHS [facility]; Protocol Last Admin: 10/05/18 11:20 Dose: Not Given Metoprolol Succinate (Toprol Xl) 100 mg PO DAILY [facility] Last Admin: 10/05/18 11:23 Dose: Not Given Pantoprazole Sodium (Protonix Ec Tab) 40 mg PO 0600 [facility] Last Admin: 10/05/18 05:38 Dose: 40 mg Sevelamer HCl (Renagel) 1,600 mg PO TID [facility] Last Admin: 10/05/18 11:22 Dose: Not Given Vitamin B Complex/Vit C/Folic Acid (Nephro-Holland) 1 tab PO 0800 [facility] Last Admin: 10/05/18 11:22 Dose: Not Given - Labs Labs: 10/05/18 05:00 10/05/18 05:00 PT 12.4 SECONDS (9.4-12.5) 10/02/18 20:05 INR 1.12 05/01/19 20:05 APTT 30.6 Seconds (26.9-38.3) 10/02/18 20:05 Attending/Attestation - Attestation I have personally seen and examined this patient.: Yes I have fully participated in the care of the patient.: Yes I have reviewed all pertinent clinical information, including history, physical exam and plan: Yes Notes (Text): 10/05/18 15:32 Attending note; patient seen and examined with resident. patient is alert and awake. Currently denies any fevers, chills. Mental status improved significantly. Denies any abdominal discomfort. Complaining of mild urinary discomfort. Got hemodialysis yesterday. Patient is a 62-year-old female with extensive past medical history of morbid obesity ESRD on HD TTS with R IJ HD catheter, CAD s/p LCX stent (03/2014), IVC filter placement, pulmonary HTN, COPD, rectal adenocarcinoma s/p chemoradiation, s/p debulking surgery, loop transverse colostomy ,ventral hernia repair with mesh & colostomy revision (04/2018), HTN, IDDM2, HLD, anemia, lumbar radiculopathy presented to ED after being sent from hemodialysis for generalized weakness. 1. Fevers and chills during hemodialysis; patient is currently started on vancomycin and Zosyn. ID evaluation appreciated. Currently on meropenem and doxycycline. Rodriguez culture ordered. 2. History of rectal cancer; status post colostomy.. Abdominal and pelvic CT scan ordered to rule out infection or abscess. surgery Evaluation requested. Tolerating diet. 3. History of hypercoagulable status; continue Eliquis. 4. Diabetes; continue Levemir and regular insulin sliding scale . 5. Hypertension; continue metoprolol. 6. poly Pharmacy; patient is on multiple medications at home. Needs to reevaluate with PMD as outpatient. 7. Morbid obesity; diet, exercise and weight reduction advised. 8. Patient is bedbound. Encouraged to get out of bed as tolerated. 9. End-stage renal disease on dialysis; continue dialysis Sunday and Sunday. Case discussed with pond scaler in detail . Case discussed with case loader operator in detail. Cleve lift prescription given. Upon discharge the patient will follow up with PMD .
[2018-10-05] MEDS: Pantoprazole 40 mg EC Tab PO SCH (05:38)
[2018-10-05 07:07] LABS: BASO # 0.03 K/mm3 (0.0-2.0); BASO % 0.4 % (0.0-3.0); EOS # 0.6 (0.0-0.7); EOS % 9.1 % (1.5-5.0); HEMOGLOBIN 9.5 g/dL (12.0-16.0); LYMPH # 2.2 (1.2-3.4); LYMPH % 32.5 % (22.0-35.0); MEAN CELL VOLUME 91.8 fl (80.0-105.0); MEAN CORPUSCULAR HGB CONC 29.4 g/dl (31.0-37.0); MEAN PLATELET VOLUME 11.5 fl (7.0-11.0); MONO # 0.4 (0.1-0.6); MONO % 5.9 % (1.0-6.0); RBC 3.52 10^6/uL (3.5-6.1); RED CELL DISTRIBUTION WIDTH 17.6 % (11.5-14.5); WHITE BLOOD COUNT 6.7 10^3/uL (4.5-11.0)
[2018-10-05 07:23] LABS: ALB/GLOB RATIO 0.8 (1.1-1.8); ALT/SGPT < 6 U/L (7-56); AST/SGOT 27 U/L (14-36); BLOOD UREA NITROGEN 41 mg/dL (7-21); CALCIUM 8.7 mg/dL (8.4-10.5); GFR NON-AFRICAN AMERICAN 9
[2018-10-05] MEDS: Budesonide 0.5 mg/2 ml Inhal Susp UD IH SCH ×2 (07:56→19:56)
[2018-10-05] MEDS: Arformoterol 15 mcg/2 ml Inh Sol IH SCH ×2 (07:56→19:56)
--- NOTE | 2018-10-05 10:47 | PN ---
DATE: 10/05/2018 PULMONARY PROGRESS NOTE REFERRING PHYSICIAN: Florentino Lewis MD. SUBJECTIVE: The patient is seen sitting up in bed, no acute distress. No overnight events reported. Did not wear BiPAP machine last night. States she feels tired this morning. No headache, rhinitis, cough, shortness of breath, chest pain, abdominal pain, nausea, vomiting, diarrhea, leg pain, or leg swelling reported. PHYSICAL EXAMINATION: GENERAL: No acute distress. VITAL SIGNS: Blood pressure 156/70, pulse 81, temperature 97.9, oxygen saturation 97%. HEENT: Moist mucous membranes. Mallampati score of 4. Crowded airway. NECK: Supple. No JVD. LUNGS: Few scattered rhonchi bilaterally. CARDIOVASCULAR: S1 and S2. ABDOMEN: Soft and nontender. No distention. No organomegaly. Obese. Colostomy bag present. EXTREMITIES: History of bilateral lower extremity edema. NEUROLOGIC: Awake, alert, and verbal. Following commands. MEDICATIONS: Reviewed. DuoNeb 3 mL inhalation every 2 hours p.r.n., Eliquis 2.5 mg twice a day, Brovana 15 mcg inhalation every 12 hours, aspirin 81 mg daily, Lipitor 20 mg at bedtime, Pulmicort 0.5 mg inhalation every 12 hours, Aranesp 100 mcg weekly, Colace 100 mg three times a day, doxycycline 100 mg every 12 hours, heparin 4000 units subcu IV one-time dose, Levemir 20 units subcu every 12 hours, Humalog 30 units subcu a.c. three times a day, Humulin R sliding a.c. and h.s., meropenem 250 mg with sodium chloride 100 mL at 100 mL/hour, metoprolol succinate 100 mg daily, Protonix 40 mg daily, Renagel 1600 mg three times a day, Nephro-Holland 1 tab daily. LABORATORY DATA: Reviewed. WBC 6.7, RBC 3.52, hemoglobin 9.5, hematocrit 32.3, platelets 277. Sodium 137, potassium 4.5, chloride 101, carbon dioxide 26, anion gap 15, BUN 41, creatinine 5.1, GFR 9, POC glucose 208, random glucose 207, calcium 8.7, phosphorus 7.7, magnesium 1.9, total bilirubin 0.3, AST 27, ALT less than 6, alkaline phosphatase 156, total protein 6.7, albumin 3, globulin 3.7, albumin-globulin ratio 0.8. Blood culture preliminary, no growth after 48 hours. Procalcitonin 1.04. IMPRESSION AND PLAN: Chronic obstructive lung disease, morbid obesity, hyperventilation syndrome, renal failure, dialysis dependent, history of pulmonary embolism, deep venous thrombosis in the past, pulmonary hypertension, systemic inflammatory response syndrome. The patient with positive procalcitonin indicating pneumonia. Currently, on meropenem and doxycycline. Continue antibiotics by Infectious Disease. Continue to encourage bilevel positive airway pressure use at bedtime. Sleep apnea precaution. Head of bed elevated at 45 degrees. Educated the patient regarding use of bilevel positive airway pressure and risk of cardiopulmonary disease including . The patient verbalizes understanding. Avoid nocturnal sedation. Continue gastric prophylaxis. The patient is on anticoagulation therapy. Pressure ulcer precaution. Recommend physical therapy. Out of bed to chair. Continue inhaled bronchodilators. The patient was seen and examined with Dr. Ayala. Discussed assessment and plan as described above. The patient was seen and examined by Breezy Schafer, nurse practitioner. Discussed assessment and plan as described above. Thank you for this consult. We will follow with you. Breezy Schafer APN Pamela Ayala MD
[2018-10-05] MEDS: Insulin Reg-MEDIUM-Coverage SC SCH ×3 (11:20→21:21)
[2018-10-05] MEDS: Insulin Lispro 1 UNITS/0.01 ML SC SCH ×2 (11:20→17:56)
[2018-10-05] MEDS: Insulin Detemir 100 units/ml Vial (Levemir) SC SCH ×2 (11:22→22:46)
[2018-10-05] MEDS: Multivitamin Vitamin B Complex (Nephro-Vite) Tab PO SCH (11:22)
[2018-10-05] MEDS: Metoprolol Succinate 100 mg XL Tab PO SCH (11:23)
--- NOTE | 2018-10-05 13:33 | CP.PCM.PN ---
Subjective - Date & Time of Evaluation Date of Evaluation: 10/05/18 Time of Evaluation: 13:31 - Subjective Subjective: RENAL FOLLOWUP Assessment: Stable sepsis ESRD on HD TTS via permacath left adrenal adenoma, Rt renal hyperdense cyst chronic hypercapnic respi failure Diabetic chronic Kidney Disease (E11.22) Hypertensive Chronic Kidney Disease (I12.9) Anemia Vit D def morbid obesity, CAD s/p stent, COPD/[facility], rectal ca s/p colostomy, hx of SBO and mesh infection Plan HD as per TTS schedule. nephrovite 1 tab daily tolerated hd today HTN relatively stable PRBC as needed, on weekly aransep supplement lytes as needed cont phos binders ID and surgery following Adrenal adenoma work up with plasma renin/aldosterone, plasma metanephrine NEGATIVE. Dose meds/antibiotics for reduced GFR. Avoid fleets enema/magnesium based laxatives. Avoid nephrotoxins/NSAIDs Glycemic control Further work up/management as per primary team S: seen and examined has no complaints this am Physical Examination: General Appearance: comfortable, morbidly obese. not in acute respi distress better appearing Vitals reviewed and noted as below Head; Atraumatic, normocephalic EYES: Pupils are equal, round and reactive to light accommodation. Eye muscles and extraocular movement intact. Sclera is anicteric. Neck; supple no lymphadenopathy, no thyromegaly or bruit Lungs: normal respiratory rate/effort. Breath sounds bilateral equal, diminished at bases but overall limited exam due to her obesity Heart: normal rate. s1s2 normal. No rub or gallop. Extremities: trace edema, No varicose veins Neurological: Patient is awake alert follow commands Skin: Warm and dry. Normal turgor. No rash. Palpitation: Normal elasticity for age Abdomen: Abdomen is + colostomy. no ttp Psych: nml affect MSK: no joint tenderness or swelling. Digits and nails normal, no deformity : kidney or bladder not palpable. access: permacath Labs/imaging reviewed. Past medical history, past surgical history, family history, social history, allergy reviewed and noted as below Family hx: no hx of CKD. Rest non-contributory Objective - Vital Signs/Intake and Output Vital Signs (last 24 hours): Temp Pulse Resp BP Pulse Ox 97.9 F 81 22 156/70 H 97 10/05/18 09:01 10/05/18 09:01 10/05/18 09:01 10/05/18 09:01 10/05/18 09:01 Intake and Output: 10/05/18 10/05/18 06:59 18:59 Intake Total 720 120 Balance 720 120 - Medications Medications: Current Medications Albuterol/Ipratropium (Duoneb 3 Mg/0.5 Mg (3 Ml) Ud) 3 ml IH Q2H PRN PRN Reason: Shortness of Breath Apixaban (Eliquis) 2.5 mg PO BID [facility]; Protocol Last Admin: 10/05/18 11:19 Dose: Not Given Arformoterol Tartrate (Brovana) 15 mcg IH [id number] [facility] Last Admin: 10/05/18 07:56 Dose: 15 mcg Aspirin (Ecotrin) 81 mg PO DAILY [facility] Last Admin: 10/05/18 11:21 Dose: Not Given Atorvastatin Calcium (Lipitor) 20 mg PO HS [facility] Last Admin: 10/04/18 21:25 Dose: 20 mg Budesonide (Pulmicort Respules) 0.5 mg IH [id number] [facility] Last Admin: 10/05/18 07:56 Dose: 0.5 mg Darbepoetin Timothy (Aranesp) 100 mcg IVP QWK [facility] Docusate Sodium (Colace) 100 mg PO TID [facility] Last Admin: 10/05/18 11:19 Dose: Not Given Doxycycline Hyclate (Doryx) 100 mg PO Q12 [facility]; Protocol Stop: 10/10/18 10:01 Last Admin: 10/05/18 12:32 Dose: 100 mg Meropenem 250 mg/ Sodium (Chloride) 100 mls @ 100 mls/hr IVPB Q12H [facility]; Protocol Stop: 10/10/18 07:31 Last Admin: 10/05/18 06:33 Dose: 100 mls/hr Insulin Detemir (Levemir) 20 unit SC Q12H [facility] Last Admin: 10/05/18 11:22 Dose: Not Given Insulin Human Lispro (Humalog) 30 units SC ACTID [facility] Last Admin: 10/05/18 11:20 Dose: Not Given Insulin Human Regular (Humulin R Med) 0 units SC ACHS [facility]; Protocol Last Admin: 10/05/18 11:20 Dose: Not Given Metoprolol Succinate (Toprol Xl) 100 mg PO DAILY [facility] Last Admin: 10/05/18 11:23 Dose: Not Given Pantoprazole Sodium (Protonix Ec Tab) 40 mg PO 0600 [facility] Last Admin: 10/05/18 05:38 Dose: 40 mg Sevelamer HCl (Renagel) 1,600 mg PO TID [facility] Last Admin: 10/05/18 11:22 Dose: Not Given Vitamin B Complex/Vit C/Folic Acid (Nephro-Holland) 1 tab PO 0800 [facility] Last Admin: 10/05/18 11:22 Dose: Not Given - Labs Labs: 10/05/18 05:00 10/05/18 05:00 PT 12.4 SECONDS (9.4-12.5) 10/02/18 20:05 INR 1.12 10/02/18 20:05 APTT 30.6 Seconds (26.9-38.3) 10/02/18 20:05
--- NOTE | 2018-10-05 13:53 | CP.PCM.PN ---
<Darby Candelario - Last Filed: 10/05/18 13:48> Subjective - Date & Time of Evaluation Date of Evaluation: 10/05/18 Time of Evaluation: 09:30 - Subjective Subjective: INTERNAL MEDICINE PROGRESS NOTE FOR DR. DAVID Candelario PGY1 Pt seen and examined in dialysis unit. Pt resting comfortably, asking for pain medication for hand tingling. She otherwise denies ROS Objective - Vital Signs/Intake and Output Vital Signs (last 24 hours): Temp Pulse Resp BP Pulse Ox 97.9 F 81 22 156/70 H 97 10/05/18 09:01 10/05/18 09:01 10/05/18 09:01 10/05/18 09:01 10/05/18 09:01 Intake and Output: 10/05/18 10/05/18 06:59 18:59 Intake Total 720 120 Balance 720 120 - Medications Medications: Current Medications Albuterol/Ipratropium (Duoneb 3 Mg/0.5 Mg (3 Ml) Ud) 3 ml IH Q2H PRN PRN Reason: Shortness of Breath Apixaban (Eliquis) 2.5 mg PO BID [facility]; Protocol Last Admin: 10/05/18 11:19 Dose: Not Given Arformoterol Tartrate (Brovana) 15 mcg IH [id number] [facility] Last Admin: 10/05/18 07:56 Dose: 15 mcg Aspirin (Ecotrin) 81 mg PO DAILY [facility] Last Admin: 10/05/18 11:21 Dose: Not Given Atorvastatin Calcium (Lipitor) 20 mg PO HS [facility] Last Admin: 10/04/18 21:25 Dose: 20 mg Budesonide (Pulmicort Respules) 0.5 mg IH [id number] [facility] Last Admin: 10/05/18 07:56 Dose: 0.5 mg Darbepoetin Timothy (Aranesp) 100 mcg IVP QWK JR Docusate Sodium (Colace) 100 mg PO TID [facility] Last Admin: 10/05/18 11:19 Dose: Not Given Doxycycline Hyclate (Doryx) 100 mg PO Q12 [facility]; Protocol Stop: 10/10/18 10:01 Last Admin: 10/05/18 12:32 Dose: 100 mg Meropenem 250 mg/ Sodium (Chloride) 100 mls @ 100 mls/hr IVPB Q12H [facility]; Protocol Stop: 10/10/18 07:31 Last Admin: 10/05/18 06:33 Dose: 100 mls/hr Insulin Detemir (Levemir) 20 unit SC Q12H [facility] Last Admin: 10/05/18 11:22 Dose: Not Given Insulin Human Lispro (Humalog) 30 units SC ACTID [facility] Last Admin: 10/05/18 11:20 Dose: Not Given Insulin Human Regular (Humulin R Med) 0 units SC ACHS [facility]; Protocol Last Admin: 10/05/18 11:20 Dose: Not Given Metoprolol Succinate (Toprol Xl) 100 mg PO DAILY [facility] Last Admin: 10/05/18 11:23 Dose: Not Given Pantoprazole Sodium (Protonix Ec Tab) 40 mg PO 0600 [facility] Last Admin: 10/05/18 05:38 Dose: 40 mg Sevelamer HCl (Renagel) 1,600 mg PO TID [facility] Last Admin: 10/05/18 11:22 Dose: Not Given Vitamin B Complex/Vit C/Folic Acid (Nephro-Holland) 1 tab PO 0800 [facility] Last Admin: 10/05/18 11:22 Dose: Not Given - Labs Labs: 10/05/18 05:00 10/05/18 05:00 PT 12.4 SECONDS (9.4-12.5) 10/02/18 20:05 INR 1.12 10/02/18 20:05 APTT 30.6 Seconds (26.9-38.3) 10/02/18 20:05 - Constitutional Appears: Non-toxic, No Acute Distress, Chronically Ill, Other (morbidly obese) - Head Exam Head Exam: NORMAL INSPECTION - Eye Exam Eye Exam: EOMI, Normal appearance - ENT Exam ENT Exam: Mucous Membranes Moist, Normal Exam - Neck Exam Neck Exam: Normal Inspection Additional comments: R sided central access in place, no purulence/erythema noted - Respiratory Exam Respiratory Exam: Clear to Ausculation Bilateral, NORMAL BREATHING PATTERN - Cardiovascular Exam Cardiovascular Exam: REGULAR RHYTHM, +S1, +S2 - GI/Abdominal Exam GI & Abdominal Exam: Soft. absent: Tenderness Additional comments: Mucus colostomy in place, pink, moist draining brown feces Multiple well approximated abdominal wounds present, all of which appear c/d/i, no erythema, purulence, discharge noted - Extremities Exam Extremities Exam: Normal Inspection. absent: Calf Tenderness - Back Exam Back Exam: NORMAL INSPECTION - Neurological Exam Neurological Exam: Alert, Awake - Psychiatric Exam Psychiatric exam: Anxious, Normal Mood - Skin Skin Exam: Dry, Intact, Warm Assessment and Plan - Assessment and Plan (Free Text) Assessment: 62 y/o F with PMH of morbid obesity (class III), ESRD on HD TTS s/p L IJ long- term hemosplit HD catheter placement (05/2018), CAD s/p LCX stent (03/2014), b/l PE s/p catheter directed thrombolysis & infrarenal IVC filter placement (12/2013) on eliquis, pulmonary HTN, COPD, rectal adenocarcinoma s/p ch emoradiation(capecitabine (2013), s/p debulking surgery ([facility], 2014) abdominal perineal resection, chemoradiation s/p loop transverse colostomy(12/2013), I&D L thigh (01/2016), SBO s/p ex-lap ventral hernia repair w/ mesh & colostomy revision (04/2018), HTN, IDDM2, HLD, anemia, lumbar radi culopathy presented to ED after being sent from hemodialysis for generalized weakness. Pt admitted initially for sepsis 2/2 abdominal wounds that has been ruled out Plan: SIRS Resolved. Remains afebrile, tachycardia resolved, leukocytosis resolved today. No signs of acute abdomen. CXR (10/02): No active disease CT A/P (10/03): No evidence of intra-abdominal abscess. Blood cultures NKTD (10/02). Procalcitonin: 1.04(10/04) Currently on merropenem/doxycycline per ID recs ID following, appreciate recs ESRD on HD TTS Will continue current regiment Continue Aranesp, phosphate binder Nephrology following CAD s/p LCx stent Will continue home aspirin, statin, b-joseph Hx of PE s/p infrarenal IVC filter continue home eliquis COPD Not in acute exacerbation continue duoneb prn, budesonide S/p multiple abdominal surgeries Abdominal wound care per surgery team Surgery recs appreciated Wound care nurse for wounds SUMMER Pt has been refusing BiPAP Bipap prn HS Pulmonology following IDDM2 Continue home lispro 30u ACTID, levemir 20u Q12 HTN BP have been controlled continue home metoprolol HLD continue home atorvastatin DVT/GI PPx: SCD&eliquis/protonix Dispo: Pt will require Cleve lift at home. Patient requires supine positioning for transfers and is primarily bed bound due to morbid obesity. Case reviewed with attending physician Dr. David Candelario PGY1 <Florentino Lewis - Last Filed: 10/05/18 15:49> Objective - Vital Signs/Intake and Output Vital Signs (last 24 hours): Temp Pulse Resp BP Pulse Ox 97.9 F 81 20 132/69 97 10/05/18 09:01 10/05/18 09:01 10/05/18 12:00 10/05/18 12:00 10/05/18 09:01 Intake and Output: 10/05/18 10/05/18 06:59 18:59 Intake Total 720 120 Balance 720 120 - Medications Medications: Current Medications Albuterol/Ipratropium (Duoneb 3 Mg/0.5 Mg (3 Ml) Ud) 3 ml IH Q2H PRN PRN Reason: Shortness of Breath Apixaban (Eliquis) 2.5 mg PO BID [facility]; Protocol Last Admin: 10/05/18 11:19 Dose: Not Given Arformoterol Tartrate (Brovana) 15 mcg IH [id number] [facility] Last Admin: 10/05/18 07:56 Dose: 15 mcg Aspirin (Ecotrin) 81 mg PO DAILY [facility] Last Admin: 10/05/18 11:21 Dose: Not Given Atorvastatin Calcium (Lipitor) 20 mg PO HS [facility] Last Admin: 10/04/18 21:25 Dose: 20 mg Budesonide (Pulmicort Respules) 0.5 mg IH [id number] [facility] Last Admin: 10/05/18 07:56 Dose: 0.5 mg Darbepoetin Timothy (Aranesp) 100 mcg IVP QWK JR Docusate Sodium (Colace) 100 mg PO TID [facility] Last Admin: 10/05/18 15:32 Dose: 100 mg Doxycycline Hyclate (Doryx) 100 mg PO Q12 [facility]; Protocol Stop: 10/10/18 10:01 Last Admin: 10/05/18 12:32 Dose: 100 mg Meropenem 250 mg/ Sodium (Chloride) 100 mls @ 100 mls/hr IVPB Q12H JR; Protocol Stop: 10/10/18 07:31 Last Admin: 10/05/18 06:33 Dose: 100 mls/hr Insulin Detemir (Levemir) 20 unit SC Q12H [facility] Last Admin: 10/05/18 11:22 Dose: Not Given Insulin Human Lispro (Humalog) 30 units SC ACTID [facility] Last Admin: 10/05/18 11:20 Dose: Not Given Insulin Human Regular (Humulin R Med) 0 units SC ACHS [facility]; Protocol Last Admin: 10/05/18 11:20 Dose: Not Given Metoprolol Succinate (Toprol Xl) 100 mg PO DAILY [facility] Last Admin: 10/05/18 11:23 Dose: Not Given Pantoprazole Sodium (Protonix Ec Tab) 40 mg PO 0600 [facility] Last Admin: 10/05/18 05:38 Dose: 40 mg Sevelamer HCl (Renagel) 1,600 mg PO TID [facility] Last Admin: 10/05/18 15:33 Dose: 1,600 mg Vitamin B Complex/Vit C/Folic Acid (Nephro-Holland) 1 tab PO 0800 [facility] Last Admin: 10/05/18 11:22 Dose: Not Given - Labs Labs: 10/05/18 05:00 10/05/18 05:00 PT 12.4 SECONDS (9.4-12.5) 10/02/18 20:05 INR 1.12 10/02/18 20:05 APTT 30.6 Seconds (26.9-38.3) 10/02/18 20:05 Attending/Attestation - Attestation I have personally seen and examined this patient.: Yes I have fully participated in the care of the patient.: Yes I have reviewed all pertinent clinical information, including history, physical exam and plan: Yes Notes (Text): 10/05/18 15:44 Attending note; patient seen and examined with resident. Currently getting hemodialysis. patient is alert and awake. denies any fevers, chills. Denies any abdominal discomfort. Complaining of mild urinary discomfort. Patient is a 62-year-old female with extensive past medical history of morbid obesity ESRD on HD TTS with R IJ HD catheter, CAD s/p LCX stent (03/2014), IVC filter placement, pulmonary HTN, COPD, rectal adenocarcinoma s/p chemoradiation, s/p debulking surgery, loop transverse colostomy ,ventral hernia repair with mesh & colostomy revision (04/2018), HTN, IDDM2, HLD, anemia, lumbar radiculopathy presented to ED after being sent from hemodialysis for generalized weakness. 1. Sepsis; resolved. ID evaluation appreciated. Currently on meropenem and doxycycline. Blood cultures negative so far. 2. History of rectal cancer; status post colostomy. Abdominal and pelvic CT scan ordered to rule out infection or abscess. surgery Evaluation requested. Tolerating diet. 3. History of hypercoagulable status; continue Eliquis. 4. Diabetes; continue Levemir and regular insulin sliding scale . 5. Hypertension; continue metoprolol. 6. poly Pharmacy; patient is on multiple medications at home. Needs to reevaluate with PMD as outpatient. 7. Morbid obesity; diet, exercise and weight reduction advised. 8. Patient is bedbound. Encouraged to get out of bed as tolerated. Patient requires supine positioning for transfer during hemodialysis. Patient is also primarily bedbound secondary to morbid obesity, multiple abdominal surgeries, colostomy with a history of cancer. 9. End-stage renal disease on dialysis; continue dialysis Sunday and Sunday. Case discussed with party plan sales unit advisor in detail . Case discussed with outsole caser in detail. Cleve lift prescription given. Patient is not eligible for rehab. Patient will be discharged home on Sunday once Cleve lift is arranged. Prognosis is poor secondary to multiple medical issues. Upon discharge the patient will follow up with PMD . 10/05/18 15:46 10/05/18 15:47
--- NOTE | 2018-10-06 00:55 | PN ---
DATE: 10/05/2018 SUBJECTIVE: The patient is in bed, in no acute distress, nontoxic. PHYSICAL EXAMINATION: VITAL SIGNS: Temperature is 98, blood pressure is 140/60, respiratory rate of 20, heart rate of 81. HEENT: Unremarkable. NECK: Supple. LUNGS: Decreased breath sounds. HEART: Normal S1 and S2. ABDOMEN: Soft. LABORATORY EXAMINATION: Reveals a white count of 6.7, hemoglobin of 9, BUN of 41 and creatinine of 5.1. Serology is reviewed. Microbiology reveals the blood cultures to be negative. ASSESSMENT AND PLAN: This is a 62-year-old female with systemic inflammatory response syndrome, leukocytosis, low-grade fevers. CAT scan of the abdomen is negative. Chest x-ray is negative. QTC is 460. Influenza negative. On vancomycin and intermittently meropenem and doxycycline day #3, would complete 4 to 7 days empirically since the blood cultures are negative, will most likely discontinue the antibiotics after tomorrow's dose. The patient did have leukocytosis which is resolved with negative cultures and no obvious source. Dr. Lewis's note is reviewed and appreciated. We will discontinue the antibiotics within the next 24 hours. Lawrence Cheek MD
[2018-10-06] MEDS: Pantoprazole 40 mg EC Tab PO SCH (05:43)
[2018-10-06 07:14] LABS: BASO # 0.04 K/mm3 (0.0-2.0); BASO % 0.5 % (0.0-3.0); EOS # 0.6 (0.0-0.7); EOS % 7.8 % (1.5-5.0); HEMOGLOBIN 9.5 g/dL (12.0-16.0); LYMPH # 2.6 (1.2-3.4); LYMPH % 33.2 % (22.0-35.0); MEAN CORPUSCULAR HEMOGLOBIN 26.6 pg (25.0-35.0); MEAN CORPUSCULAR HGB CONC 29.2 g/dl (31.0-37.0); MONO # 0.4 (0.1-0.6); MONO % 5.6 % (1.0-6.0); RBC 3.57 10^6/uL (3.5-6.1); RED CELL DISTRIBUTION WIDTH 17.6 % (11.5-14.5); WHITE BLOOD COUNT 7.8 10^3/uL (4.5-11.0)
[2018-10-06] MEDS: Budesonide 0.5 mg/2 ml Inhal Susp UD IH SCH ×2 (07:18→19:21)
[2018-10-06] MEDS: Arformoterol 15 mcg/2 ml Inh Sol IH SCH ×2 (07:18→19:21)
[2018-10-06 07:19] LABS: ALB/GLOB RATIO 0.8 (1.1-1.8); ALBUMIN 2.9 g/dL (3.0-4.8); ALT/SGPT < 6 U/L (7-56); AST/SGOT 30 U/L (14-36); BLOOD UREA NITROGEN 26 mg/dL (7-21); CALCIUM 8.8 mg/dL (8.4-10.5); GFR NON-AFRICAN AMERICAN 12
--- NOTE | 2018-10-06 08:43 | PN ---
DATE: 10/06/2018 PULMONARY PROGRESS NOTE REFERRING PHYSICIAN: Florentino Lewis MD SUBJECTIVE: The patient is seen lying in bed, asleep, easily arousable, no acute distress. No overnight events reported. Did not wear BiPAP machine last night. No headache, rhinitis, cough, shortness of breath, chest pain, abdominal pain, nausea, vomiting, diarrhea, leg pain, or leg swelling reported. OBJECTIVE: VITAL SIGNS: Blood pressure 149/66, pulse 72, temperature 98, and oxygen saturation 98 on room air. GENERAL: No acute distress. HEENT: Moist mucous membranes. Mallampati score 4. Crowded airway. NECK: Supple. No JVD. LUNGS: Few scattered rhonchi bilaterally. CARDIOVASCULAR: S1 and S2. ABDOMEN: Soft and nontender. No distention. No organomegaly. Obese. Colostomy bag draining. EXTREMITIES: No bilateral lower extremity edema. NEUROLOGIC: Awake, alert, and verbal. Following commands. MEDICATIONS: Reviewed. DuoNeb 3 mL inhalation every 2 hours p.r.n., Eliquis 2.5 mg twice a day, Brovana 15 mcg every 12 hours, aspirin 81 mg daily, Lipitor 20 mg at bedtime, Pulmicort 0.5 mg inhalation every 12 hours, Aranesp 100 mcg weekly, Colace 100 mg three times a day, doxycycline 100 mg every 12 hours, Levemir 20 units subcu every 12 hours, Humalog 30 units subcu before meals three times a day, Humulin R sliding scale before meals and at bedtime, meropenem 250 mg every 12 hours, metoprolol succinate 100 mg daily, Protonix 40 mg daily, Lyrica 100 mg every 8 hours, Renagel 1600 mg three times a day, and Nephro-Holland one tab daily. LABORATORY DATA: Reviewed. WBC 7.8, RBC 3.57, hemoglobin 9.5, hematocrit 32.5, platelets 246. Sodium 133, potassium 4, chloride 101, carbon dioxide 26, anion gap 11, BUN 26, creatinine 3.9, GFR 12, random glucose 158, calcium 8.8, phosphorus 5.8, magnesium 1.7, total bilirubin 0.2, AST 30, ALT less than 6, alkaline phosphatase 157, total protein 6.6, albumin 2.9, globulin 3.7, albumin-globulin ratio 0.8. Blood culture, preliminary, no growth after three days. IMPRESSION AND PLAN: Chronic obstructive lung disease; morbid obesity; hyperventilation syndrome; renal failure, dialysis dependent; history of pulmonary embolism; deep venous thrombosis in the past; pulmonary hypertension; systemic inflammatory response syndrome; pneumonia, currently on meropenem and doxycycline. Continue antibiotics by Infectious Disease. Continue to encourage bilevel positive airway pressure use at bedtime. Sleep apnea precaution. Head of bed elevated at 45 degrees. Continue gastric prophylaxis, inhaled bronchodilators. The patient is on anticoagulation therapy. Avoid nocturnal sedation. Recommend physical therapy. Out of bed to chair. The patient was seen and examined with Dr. Ayala. Discussed assessment and plan as described above. The patient was seen and examined by Breezy Schafer, nurse practitioner. Discussed assessment and plan as described above. Thank you for this consult. We will follow with you. Breezy Schafer APN Pamela Ayala MD
[2018-10-06] MEDS: Insulin Lispro 1 UNITS/0.01 ML SC SCH ×3 (09:15→17:37)
[2018-10-06] MEDS: Insulin Reg-MEDIUM-Coverage SC SCH ×4 (09:16→21:39)
[2018-10-06] MEDS: Multivitamin Vitamin B Complex (Nephro-Vite) Tab PO SCH (09:17)
[2018-10-06] MEDS: Metoprolol Succinate 100 mg XL Tab PO SCH (09:18)
[2018-10-06] MEDS: Insulin Detemir 100 units/ml Vial (Levemir) SC SCH ×2 (10:30→21:39)
--- NOTE | 2018-10-06 12:03 | CP.PCM.PN ---
<Luisa Payne L - Last Filed: 10/06/18 16:04> Subjective - Date & Time of Evaluation Date of Evaluation: 10/06/18 Time of Evaluation: 09:00 - Subjective Subjective: Resident Progress Note for Hospitalist Service Patient examined at bedside. No acute events overnight. Patient was resting comfortably in bed in no acute distress. She states she is sleepy and denies any symptomatic complaints. Objective - Vital Signs/Intake and Output Vital Signs (last 24 hours): Temp Pulse Resp BP Pulse Ox 97.8 F 90 20 141/59 L 99 10/06/18 09:19 10/06/18 09:19 10/06/18 09:19 10/06/18 09:19 10/06/18 09:19 Intake and Output: 10/06/18 10/06/18 06:59 18:59 Intake Total 120 Balance 120 - Medications Medications: Current Medications Albuterol/Ipratropium (Duoneb 3 Mg/0.5 Mg (3 Ml) Ud) 3 ml IH Q2H PRN PRN Reason: Shortness of Breath Apixaban (Eliquis) 2.5 mg PO BID [facility]; Protocol Last Admin: 10/06/18 09:15 Dose: 2.5 mg Arformoterol Tartrate (Brovana) 15 mcg IH [id number] [facility] Last Admin: 10/06/18 07:18 Dose: Not Given Aspirin (Ecotrin) 81 mg PO DAILY [facility] Last Admin: 10/06/18 09:15 Dose: 81 mg Atorvastatin Calcium (Lipitor) 20 mg PO HS [facility] Last Admin: 10/05/18 21:22 Dose: 20 mg Budesonide (Pulmicort Respules) 0.5 mg IH [id number] [facility] Last Admin: 10/06/18 07:18 Dose: Not Given Darbepoetin Timothy (Aranesp) 100 mcg IVP QWK JR Docusate Sodium (Colace) 100 mg PO TID [facility] Last Admin: 10/06/18 09:14 Dose: Not Given Doxycycline Hyclate (Doryx) 100 mg PO Q12 [facility]; Protocol Stop: 10/10/18 10:01 Last Admin: 10/06/18 09:14 Dose: 100 mg Meropenem 250 mg/ Sodium (Chloride) 100 mls @ 100 mls/hr IVPB Q12H [facility]; Protocol Stop: 10/10/18 07:31 Last Admin: 10/06/18 09:16 Dose: 100 mls/hr Insulin Detemir (Levemir) 20 unit SC Q12H [facility] Last Admin: 10/05/18 22:46 Dose: Not Given Insulin Human Lispro (Humalog) 30 units SC ACTID [facility] Last Admin: 10/06/18 09:15 Dose: Not Given Insulin Human Regular (Humulin R Med) 0 units SC ACHS [facility]; Protocol Last Admin: 10/06/18 09:16 Dose: Not Given Metoprolol Succinate (Toprol Xl) 100 mg PO DAILY [facility] Last Admin: 10/06/18 09:18 Dose: 100 mg Pantoprazole Sodium (Protonix Ec Tab) 40 mg PO 0600 [facility] Last Admin: 10/06/18 05:43 Dose: 40 mg Pregabalin (Lyrica) 100 mg PO Q8 [facility] Last Admin: 10/06/18 05:43 Dose: 100 mg Sevelamer HCl (Renagel) 1,600 mg PO TID [facility] Last Admin: 10/06/18 09:17 Dose: Not Given Vitamin B Complex/Vit C/Folic Acid (Nephro-Holland) 1 tab PO 0800 [facility] Last Admin: 10/06/18 09:17 Dose: Not Given - Labs Labs: 10/06/18 05:00 10/06/18 05:00 PT 12.4 SECONDS (9.4-12.5) 10/02/18 20:05 INR 1.12 10/02/18 20:05 APTT 30.6 Seconds (26.9-38.3) 10/02/18 20:05 - Additional Findings Additional findings: - Constitutional Appears: Non-toxic, No Acute Distress - Head Exam Head Exam: NORMOCEPHALIC, ATRAUMATIC - Eye Exam Eye Exam: EOMI, Normal appearance - ENT Exam ENT Exam: Mucous Membranes Moist - Neck Exam Neck Exam: Normal Inspection Additional comments: R sided central access in place, no purulence/erythema noted - Respiratory Exam Respiratory Exam: Clear to Auscultation Bilateral, NORMAL BREATHING PATTERN - Cardiovascular Exam Cardiovascular Exam: REGULAR RHYTHM, +S1, +S2 - GI/Abdominal Exam GI & Abdominal Exam: Soft. absent: Tenderness Additional comments: Colostomy in place, draining brown feces Multiple well approximated abdominal wounds C/D/I - Extremities Exam Extremities Exam: Normal Inspection. absent: Calf Tenderness - Neurological Exam Neurological Exam: Alert, Awake - Skin Skin Exam: Dry, Intact, Warm Assessment and Plan - Assessment and Plan (Free Text) Assessment: Patient is a 62 year old female with PMH of morbid obesity (class III), ESRD on HD TTS s/p L IJ long-term hemosplit HD catheter placement (05/2018), CAD s/p LCX stent (03/2014), b/l PE s/p catheter directed thrombolysis & infrarenal IVC filter placement (12/2013) on eliquis, pulmonary HTN, COPD, rectal adenocarcinoma s/p chemoradiation(capecitabine (2013), s/p debulking surgery ([facility], 2014) abdominal perineal resection, chemoradiation s/p loop transverse colostomy(12/2013), I&D L thigh (01/2016), SBO s/p ex-lap ventral hernia repair w/ mesh & colostomy revision (04/2018), HTN, IDDM2, HLD, anemia, lumbar radiculopat hy presented to ED after being sent from hemodialysis for generalized weakness. Pt admitted initially for sepsis 2/2 abdominal wounds that has been ruled out. Plan: SIRS - resolved - CXR (10/02): No active disease - CT A/P (10/03): No evidence of intra-abdominal abscess - Blood cultures NKTD (10/02) - Procalcitonin: 1.04 - Merropenem/doxycycline discontinued ESRD on HD (TTS) - Continue Aranesp, phosphate binder - Nephrology following, recs appreciated CAD s/p LCx stent - Continue home aspirin, statin, b-joseph Hx of PE s/p infrarenal IVC filter - Continue home eliquis COPD - Continue duonebs prn, Pulmicort, Brovana Hx multiple abdominal surgeries - Abdominal wound care per surgery team - Surgery recs appreciated [facility] - Patient refusing Bipap - Bipap PRN HS - Pulmonology following IDDM2 - Continue home lispro 30u ACTID, levemir 20u Q12 HTN - Continue home metoprolol HLD - Continue home atorvastatin PPX: SCD&eliquis/protonix Dispo: Pt will require Cleve lift at home. Patient requires supine positioning for transfers and is primarily bed bound due to morbid obesity. Case reviewed with Dr. Debbie Payne PGY-1 <Florentino Lewis - Last Filed: 10/06/18 18:25> Objective - Vital Signs/Intake and Output Vital Signs (last 24 hours): Temp Pulse Resp BP Pulse Ox 98.2 F 79 19 152/71 H 100 10/06/18 16:59 10/06/18 16:59 10/06/18 16:59 10/06/18 16:59 10/06/18 16:59 Intake and Output: 10/06/18 10/06/18 06:59 18:59 Intake Total 120 Balance 120 - Medications Medications: Current Medications Albuterol/Ipratropium (Duoneb 3 Mg/0.5 Mg (3 Ml) Ud) 3 ml IH Q2H PRN PRN Reason: Shortness of Breath Apixaban (Eliquis) 2.5 mg PO BID [facility]; Protocol Last Admin: 10/06/18 17:37 Dose: 2.5 mg Arformoterol Tartrate (Brovana) 15 mcg IH [id number] [facility] Last Admin: 10/06/18 07:18 Dose: Not Given Aspirin (Ecotrin) 81 mg PO DAILY [facility] Last Admin: 10/06/18 09:15 Dose: 81 mg Atorvastatin Calcium (Lipitor) 20 mg PO HS [facility] Last Admin: 10/05/18 21:22 Dose: 20 mg Budesonide (Pulmicort Respules) 0.5 mg IH [id number] [facility] Last Admin: 10/06/18 07:18 Dose: Not Given Darbepoetin Timothy (Aranesp) 100 mcg IVP QWK [facility] Docusate Sodium (Colace) 100 mg PO TID [facility] Last Admin: 10/06/18 17:36 Dose: 100 mg Insulin Detemir (Levemir) 20 unit SC Q12H [facility] Last Admin: 10/06/18 10:30 Dose: Not Given Insulin Human Lispro (Humalog) 30 units SC ACTID [facility] Last Admin: 10/06/18 17:37 Dose: 30 unit Insulin Human Regular (Humulin R Med) 0 units SC ACHS [facility]; Protocol Last Admin: 10/06/18 17:42 Dose: 5 u Metoprolol Succinate (Toprol Xl) 100 mg PO DAILY [facility] Last Admin: 10/06/18 09:18 Dose: 100 mg Pantoprazole Sodium (Protonix Ec Tab) 40 mg PO 0600 [facility] Last Admin: 10/06/18 05:43 Dose: 40 mg Pregabalin (Lyrica) 100 mg PO Q8 [facility] Last Admin: 10/06/18 13:08 Dose: 100 mg Sevelamer HCl (Renagel) 1,600 mg PO TID [facility] Last Admin: 10/06/18 17:43 Dose: 1,600 mg Vitamin B Complex/Vit C/Folic Acid (Nephro-Holland) 1 tab PO 0800 [facility] Last Admin: 10/06/18 09:17 Dose: Not Given - Labs Labs: 10/06/18 05:00 10/06/18 05:00 PT 12.4 SECONDS (9.4-12.5) 10/02/18 20:05 INR 1.12 10/02/18 20:05 APTT 30.6 Seconds (26.9-38.3) 10/02/18 20:05 Attending/Attestation - Attestation I have personally seen and examined this patient.: Yes I have fully participated in the care of the patient.: Yes I have reviewed all pertinent clinical information, including history, physical exam and plan: Yes Notes (Text): 10/06/18 18:24 Attending note; patient seen and examined with resident. laying in bed. patient is alert and awake. denies any fevers, chills. Patient is a 62-year-old female with extensive past medical history of morbid obesity ESRD on HD TTS with R IJ HD catheter, CAD s/p LCX stent (03/2014), IVC filter placement, pulmonary HTN, COPD, rectal adenocarcinoma s/p chemoradiation, s/p debulking surgery, loop transverse colostomy ,ventral hernia repair with mesh & colostomy revision (04/2018), HTN, IDDM2, HLD, anemia, lumbar radiculopathy presented to ED after being sent from hemodialysis for generalized weakness. 1. Sepsis; resolved. ID evaluation appreciated. Treated with IV meropenem and doxycycline. Completed a short course of antibiotics today. Blood cultures negative so far. 2. History of rectal cancer; status post colostomy. Abdominal and pelvic CT scan ordered to rule out infection or abscess. surgery Evaluation requested. Tolerating diet. 3. History of hypercoagulable status; continue Eliquis. 4. Diabetes; continue Levemir and regular insulin sliding scale . 5. Hypertension; continue metoprolol. 6. [facility]; patient is on multiple medications at home. Needs to reevaluate with PMD as outpatient. 7. Morbid obesity; diet, exercise and weight reduction advised. 8. Patient is bedbound. Encouraged to get out of bed as tolerated. Patient requires supine positioning for transfer during hemodialysis. Patient is also primarily bedbound secondary to morbid obesity, multiple abdominal surgeries, colostomy with a history of cancer. 9. End-stage renal disease on dialysis; continue dialysis Sunday and Sunday. Case discussed with daub color mixer in detail . Got hemodialysis yesterday. Cleve lift prescription given. Patient will be discharged home on Sunday once Cleve lift is arranged. Prognosis is poor secondary to multiple medical issues. Upon discharge the patient will follow up with PMD .
--- NOTE | 2018-10-06 21:51 | PN ---
DATE: 10/06/2018 SUBJECTIVE: The patient is in bed, in no acute distress, nontoxic. PHYSICAL EXAMINATION: VITAL SIGNS: Temperature is 98, blood pressure is 140/50, respiratory rate of 20, heart rate of 90. HEENT: Unremarkable. NECK: Supple. LUNGS: Decreased breath sounds. HEART: Normal S1 and S2. ABDOMEN: Soft. LABORATORY DATA: Laboratory examination reveals a white count of 7.8, hemoglobin of 9, BUN of 26 and creatinine of 3.9. Serology is noted. Microbiology, blood cultures are negative. ASSESSMENT AND PLAN: A 62-year-old female with systemic inflammatory response syndrome, leukocytosis, low-grade fevers. CAT scan of the abdomen is negative. Chest x-ray is negative. Today is day #4 of meropenem and doxycycline and that the patient now afebrile and white count is normal and the cultures are negative, we will discontinue the antibiotics. We will follow the patient off of antibiotics. We will follow with you. Lawrence Cheek MD
[2018-10-07] MEDS: Pantoprazole 40 mg EC Tab PO SCH (05:17)
[2018-10-07 06:40] LABS: BASO # 0.06 K/mm3 (0.0-2.0); BASO % 0.6 % (0.0-3.0); EOS # 0.7 (0.0-0.7); EOS % 7.1 % (1.5-5.0); HEMOGLOBIN 10.4 g/dL (12.0-16.0); LYMPH # 3.1 (1.2-3.4); LYMPH % 32.9 % (22.0-35.0); MEAN CELL VOLUME 90.7 fl (80.0-105.0); MEAN CORPUSCULAR HEMOGLOBIN 26.9 pg (25.0-35.0); MEAN CORPUSCULAR HGB CONC 29.6 g/dl (31.0-37.0); MEAN PLATELET VOLUME 10.9 fl (7.0-11.0); MONO # 0.5 (0.1-0.6); MONO % 5.5 % (1.0-6.0); RBC 3.87 10^6/uL (3.5-6.1); RED CELL DISTRIBUTION WIDTH 17.5 % (11.5-14.5); WHITE BLOOD COUNT 9.5 10^3/uL (4.5-11.0)
[2018-10-07 06:53] LABS: ALB/GLOB RATIO 0.8 (1.1-1.8); CALCIUM 9.1 mg/dL (8.4-10.5)
[2018-10-07] MEDS: Arformoterol 15 mcg/2 ml Inh Sol IH SCH ×2 (07:22→19:18)
[2018-10-07] MEDS: Budesonide 0.5 mg/2 ml Inhal Susp UD IH SCH ×2 (07:22→19:18)
[2018-10-07] MEDS: Insulin Reg-MEDIUM-Coverage SC SCH ×3 (07:50→17:43)
--- NOTE | 2018-10-07 08:39 | PN ---
DATE: 10/04/2018 SUBJECTIVE: The patient is in room 377, bed 2. The patient was seen earlier this morning. PHYSICAL EXAMINATION: GENERAL: On exam, the patient is still weak and doing poorly. VITAL SIGNS: Temperature of 98, blood pressure is 135/60, respiratory rate of 20, and she is hypoxic. HEENT: Unremarkable. NECK: Supple. LUNGS: Have decreased breath sounds. HEART: Normal S1, S2. ABDOMEN: Soft. LABORATORY EXAMINATION: Reveals the blood cultures are negative, and white count is down to 9000, hemoglobin of 9, platelets are 259. Coagulation is noted. Chemistries reveals a BUN of 31, creatinine of 4. Procalcitonin is 1. Serology is negative. Microbiology reveals the blood cultures are negative, and review of the patient had an extremity ultrasound. No evidence of DVT. Review of orders reveals the patient to be on doxycycline and meropenem, day #2. ASSESSMENT AND PLAN: This is a 62-year-old female with super morbid obesity, congestive heart failure, coronary artery disease, hypertension, diabetes, end-stage renal disease, on hemodialysis, hyperlipidemia, and rectal cancer. 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 Thus far initial cultures are negative and CAT scan the abdomen is negative. Chest x-ray is negative. Currently on day #2 of meropenem and doxycycline. We will check on the final culture results. Overall prognosis is quite poor for this woman with multiple comorbidities. Lawrence Cheek MD
[2018-10-07] MEDS: Multivitamin Vitamin B Complex (Nephro-Vite) Tab PO SCH (08:57)
[2018-10-07] MEDS: Insulin Lispro 1 UNITS/0.01 ML SC SCH ×3 (08:58→17:42)
[2018-10-07] MEDS: Metoprolol Succinate 100 mg XL Tab PO SCH (10:12)
[2018-10-07] MEDS: Insulin Detemir 100 units/ml Vial (Levemir) SC SCH (10:12)
--- NOTE | 2018-10-07 11:56 | CP.PCM.PN ---
Subjective - Date & Time of Evaluation Date of Evaluation: 10/07/18 Time of Evaluation: 11:55 - Subjective Subjective: Assessment: Stable sepsis ESRD on HD TTS via permacath left adrenal adenoma, Rt renal hyperdense cyst chronic hypercapnic respi failure Diabetic chronic Kidney Disease (E11.22) Hypertensive Chronic Kidney Disease (I12.9) Anemia Vit D def morbid obesity, CAD s/p stent, COPD/SUMMER, rectal ca s/p colostomy, hx of SBO and mesh infection Plan HD as per TTS schedule. nephrovite 1 tab daily HTN control with meds as ordered. pt not on most of BP meds these days and hence d/deni. contiue with metoprolol only. PRBC as needed, on weekly aransep supplement lytes as needed phos binders added ID and surgery following Adrenal adenoma work up with plasma renin/aldosterone, plasma metanephrine NEGATIVE. will need outpt 1 mg dexa suppression test Dose meds/antibiotics for reduced GFR. Avoid fleets enema/magnesium based laxatives. Avoid nephrotoxins/NSAIDs Glycemic control Further work up/management as per primary team pt stable for d/c from [facility] when planned. Thanks for allowing me to participate in care of your patient. Will follow patient with you. Please call if any Qs. had d/w team Dr Dae Dawn Office: [phone] Chief Complaint; not feeling well Reason for consult: dialysis HPI: Pt is a 62 F with hx of diabetes Mellitus (15 years), hypertension (years), morbid obesity, CAD s/p stent, COPD/SUMMER, rectal ca s/p colostomy, left adrenal adenoma, Rt renal cyst, chronic hypercapnic respi failure, CKD 3 with baseline cr 1.2-1.3 with SHELBI started HD 05/28/18 and no renal recovery, ESRD now, re peated recent admissions to [facility] for sepsis. she was d/c from rehab recently and sent after HD yesterday as she was c/o chills pain abdomen and not feeling well still feels sick ROS: feels better today. denies SOB. denies back and abdomen pain. not much urine output. rest all other neg Physical Examination: General Appearance: comfortable, morbidly obese. not in acute respi distress better appearing Vitals reviewed and noted as below Head; Atraumatic, normocephalic EYES: Pupils are equal, round and reactive to light accommodation. Eye muscles and extraocular movement intact. Sclera is anicteric. Neck; supple no lymphadenopathy, no thyromegaly or bruit Lungs: normal respiratory rate/effort. Breath sounds bilateral equal, diminished at bases but overall limited exam due to her obesity Heart: normal rate. s1s2 normal. No rub or gallop. Extremities: trace edema, No varicose veins Neurological: Patient is awake alert follow commands Skin: Warm and dry. Normal turgor. No rash. Palpitation: Normal elasticity for age Abdomen: Abdomen is + colostomy. dressing overlying wound + tenderness to palpation Psych: deferred MSK: no joint tenderness or swelling. Digits and nails normal, no deformity : kidney or bladder not palpable. access: permacath Labs/imaging reviewed. Past medical history, past surgical history, family history, social history, allergy reviewed and noted as below Family hx: no hx of CKD. Rest non-contributory Objective - Vital Signs/Intake and Output Vital Signs (last 24 hours): Temp Pulse Resp BP Pulse Ox 97.7 F 77 20 152/76 H 98 10/07/18 07:54 10/07/18 10:12 10/07/18 07:54 10/07/18 10:12 10/07/18 07:54 Intake and Output: 10/07/18 10/07/18 06:59 18:59 Intake Total 240 Balance 240 - Medications Medications: Current Medications Albuterol/Ipratropium (Duoneb 3 Mg/0.5 Mg (3 Ml) Ud) 3 ml IH Q2H PRN PRN Reason: Shortness of Breath Apixaban (Eliquis) 2.5 mg PO BID [facility]; Protocol Last Admin: 10/07/18 10:12 Dose: 2.5 mg Arformoterol Tartrate (Brovana) 15 mcg IH [id number] [facility] Last Admin: 10/07/18 07:22 Dose: 15 mcg Aspirin (Ecotrin) 81 mg PO DAILY [facility] Last Admin: 10/07/18 10:12 Dose: 81 mg Atorvastatin Calcium (Lipitor) 20 mg PO HS [facility] Last Admin: 10/06/18 21:27 Dose: 20 mg Budesonide (Pulmicort Respules) 0.5 mg IH [id number] [facility] Last Admin: 10/07/18 07:22 Dose: 0.5 mg Darbepoetin Timothy (Aranesp) 100 mcg IVP QWK [facility] Docusate Sodium (Colace) 100 mg PO TID [facility] Last Admin: 10/07/18 10:02 Dose: Not Given Insulin Detemir (Levemir) 20 unit SC Q12H [facility] Last Admin: 10/07/18 10:12 Dose: 20 units Insulin Human Lispro (Humalog) 30 units SC ACTID [facility] Last Admin: 10/07/18 08:58 Dose: Not Given Insulin Human Regular (Humulin R Med) 0 units SC ACHS [facility]; Protocol Last Admin: 10/07/18 07:50 Dose: Not Given Metoprolol Succinate (Toprol Xl) 100 mg PO DAILY [facility] Last Admin: 10/07/18 10:12 Dose: 100 mg Pantoprazole Sodium (Protonix Ec Tab) 40 mg PO 0600 [facility] Last Admin: 10/07/18 05:17 Dose: 40 mg Pregabalin (Lyrica) 100 mg PO Q8 [facility] Last Admin: 10/07/18 05:17 Dose: 100 mg Sevelamer HCl (Renagel) 1,600 mg PO TID [facility] Last Admin: 10/07/18 10:11 Dose: 1,600 mg Vitamin B Complex/Vit C/Folic Acid (Nephro-Holland) 1 tab PO 0800 [facility] Last Admin: 10/07/18 08:57 Dose: Not Given - Labs Labs: 10/07/18 06:00 10/07/18 06:00 PT 12.4 SECONDS (9.4-12.5) 10/02/18 20:05 INR 1.12 10/02/18 20:05 APTT 30.6 Seconds (26.9-38.3) 10/02/18 20:05
--- NOTE | 2018-10-07 13:16 | PN ---
DATE: 10/07/2018 PULMONARY PROGRESS NOTE REFERRING PHYSICIAN: Dr. Lewis. SUBJECTIVE: The patient is seen sitting up in bed. No acute distress. No overnight events reported. Did not wear BiPAP machine last night. Reports feeling better. Today; no headache, rhinitis, cough, shortness of breath, chest pain, abdominal pain, nausea, vomiting, diarrhea, leg pain, or leg swelling reported. OBJECTIVE: GENERAL: No acute distress. VITAL SIGNS: Blood pressure 152/76, pulse 77, temperature 97.7, and oxygen saturation 98%. HEENT: Moist mucous membranes. Mallampati score 4. Crowded airway. NECK: Supple. No JVD. LUNGS: Fair airflow bilaterally. CARDIOVASCULAR: S1 and S2. ABDOMEN: Soft and nontender. No distention. No organomegaly. Obese. Colostomy bag draining soft stool. EXTREMITIES: No bilateral lower extremity edema. NEUROLOGIC: Awake, alert, and verbal. Following commands. MEDICATIONS: Reviewed. DuoNeb 3 mL inhalation every 2 hours p.r.n., Eliquis 2.5 mg twice a day, Brovana 15 mcg inhalation every 12 hours, aspirin 81 mg daily, Lipitor 20 mg at bedtime, Pulmicort 0.5 mg inhalation every 12 hours, Aranesp 100 mcg IV push weekly, Colace 100 mg 3 times a day, Levemir 20 units subcutaneously every 12 hours, Humalog 30 units subcutaneously 3 times a day, Humulin R sliding scale a.c. and at bedtime, metoprolol succinate 100 mg daily, Protonix 40 mg daily, Lyrica 100 mg every 8 hours, Renagel 1600 mg 3 times a day, and Nephro-Holland one tab daily. LABORATORY DATA: Reviewed. WBC 9.5, RBC 3.87, hemoglobin 10.4, hematocrit 35.1, platelets 246. Sodium 134, potassium 4.7, chloride 100, carbon dioxide 26, anion gap 13, BUN 37, creatinine 5, GFR 9, POC glucose 136, random glucose 101, calcium 9.1, phosphorus 7.2, magnesium 1.7, total bilirubin 0.2, AST 29, ALT 7, alkaline phosphatase 160, total protein 6.0, albumin 3.0, globulin 3.8, albumin-globulin ratio 0.8. Blood culture, preliminary, no growth after 4 days. IMPRESSION AND PLAN: Chronic obstructive lung disease; morbid obesity; hyperventilation syndrome; renal failure, dialysis dependent; history of pulmonary embolism; deep venous thrombosis in the past; pulmonary hypertension; systemic inflammatory response syndrome; pneumonia. The patient no longer on antibiotic therapy, Infectious Disease notes appreciated. The patient at this time is afebrile with normal white count. Continue to monitor the patient. Pulmonary point of view, continue to encourage bilevel positive airway pressure use at bedtime. Sleep apnea precaution. Head of bed elevated at 45 degrees. Continue gastric prophylaxis, inhaled bronchodilators. The patient is currently on anticoagulation therapy. Out of bed to chair. Avoid nocturnal sedation, pressure ulcer precautions. The patient was seen and examined with Dr. Ayala. Discussed assessment and plan as described above. The patient was seen and examined by Breezy Schafer, nurse practitioner. Discussed assessment and plan as described above. Thank you for this consult and we will follow with you. Breezy Schafer APN Pamela Aayla MD
[2018-10-07 17:01] VITALS: PULSE 85; RESP 19; TEMP 97.8; O2SAT 96
--- NOTE | 2018-10-07 17:15 | CP.PCM.DIS ---
<CastroZackery monterroso - Last Filed: 10/07/18 19:56> Provider - Provider Date of Admission: 10/02/18 21:32 Attending physician: Florentino Lewis MD Consults: 10/02/18 22:55 Nephrology Consult Routine Comment: Consulting Provider: Dae Dawn Consulting Physician: Dae Dawn Reason for Consult: Dialysis MWF 10/03/18 02:47 Nursing Referral for Palliative Care Routine Comment: Physician Instructions: Reason For Exam: EVAL 10/03/18 07:03 Infectious Disease Consult Routine Comment: Consulting Provider: Rakan Arnold Consulting Physician: Rakan Arnold Reason for Consult: SIRS, R/o sepsis 10/03/18 11:54 General Surgery Consult Routine Comment: Consulting Provider: Osmar Mckeon Consulting Physician: Osmar Mckeon Reason for Consult: abdominal pain, hernia repair in 10/04/18 11:50 Nursing Referral for Wound Care Routine Comment: Physician Instructions: wound care Reason For Exam: two abdominal wounds Time Spent in preparation of Discharge (in minutes): 45 Hospital Course - Lab Results Lab Results: Micro Results 10/02/18 20:46 Blood Blood Culture - Preliminary NO GROWTH AFTER 4 DAYS 10/02/18 20:05 Blood Blood Culture - Preliminary NO GROWTH AFTER 4 DAYS Most Recent Lab Values WBC 9.5 10^3/uL (4.5-11.0) D 10/07/18 06:00 RBC 3.87 10^6/uL (3.5-6.1) 10/07/18 06:00 Hgb 10.4 g/dL (12.0-16.0) L 10/07/18 06:00 Hct 35.1 % (36.0-48.0) L 10/07/18 06:00 MCV 90.7 fl (80.0-105.0) 10/07/18 06:00 MCH 26.9 pg (25.0-35.0) 10/07/18 06:00 MCHC 29.6 g/dl (31.0-37.0) L 10/07/18 06:00 RDW 17.5 % (11.5-14.5) H 10/07/18 06:00 Plt Count 246 10^3/uL (120.0-450.0) 10/07/18 06:00 MPV 10.9 fl (7.0-11.0) 10/07/18 06:00 Neut % (Auto) 53.9 % (50.0-68.0) 10/07/18 06:00 Lymph % (Auto) 32.9 % (22.0-35.0) 10/07/18 06:00 Avery % (Auto) 5.5 % (1.0-6.0) 10/07/18 06:00 Eos % (Auto) 7.1 % (1.5-5.0) H 10/07/18 06:00 Baso % (Auto) 0.6 % (0.0-3.0) 10/07/18 06:00 Lymph # (Auto) 3.1 (1.2-3.4) 10/07/18 06:00 Avery # (Auto) 0.5 (0.1-0.6) 10/07/18 06:00 Eos # (Auto) 0.7 (0.0-0.7) 10/07/18 06:00 Baso # (Auto) 0.06 K/mm3 (0.0-2.0) 10/07/18 06:00 Absolute Neuts (auto) 5.12 (1.4-6.5) 10/07/18 06:00 PT 12.4 SECONDS (9.4-12.5) 10/02/18 20:05 INR 1.12 10/02/18 20:05 APTT 30.6 Seconds (26.9-38.3) 10/02/18 20:05 pO2 189 mm/Hg (30-55) H 10/03/18 05:30 VBG pH 7.28 (7.32-7.43) L 10/03/18 05:30 VBG pCO2 51.0 (40-60) 10/03/18 05:30 VBG HCO3 24.0 mmol/l (21-28) 10/03/18 05:30 VBG Total CO2 25.6 mmol.L (22-28) 10/03/18 05:30 VBG O2 Sat (Calc) 99.3 % (40-65) H 10/03/18 05:30 VBG Base Excess -3.3 mmol/L (0.0-2.0) L 10/03/18 05:30 VBG Potassium 4.9 mmol/L (3.6-5.2) 10/03/18 05:30 Sodium 138.0 mmol/L (132-148) 10/03/18 05:30 Chloride 107.0 mmol/L (98-107) 10/03/18 05:30 Glucose 90 mg/dl (65-105) 10/03/18 05:30 Lactate 0.7 mmol/L (0.7-2.1) 10/03/18 05:30 FiO2 21.0 % 10/03/18 05:30 Sodium 134 mmol/L (132-148) 10/07/18 06:00 Potassium 4.7 mmol/L (3.6-5.0) 10/07/18 06:00 Chloride 100 mmol/L (98-107) 10/07/18 06:00 Carbon Dioxide 26 mmol/L (21-33) 10/07/18 06:00 Anion Gap 13 (10-20) 10/07/18 06:00 BUN 37 mg/dL (7-21) H 10/07/18 06:00 Creatinine 5.0 mg/dl (0.7-1.2) H 10/07/18 06:00 Est GFR ( Amer) 11 10/07/18 06:00 Est GFR (Non-Af Amer) 9 10/07/18 06:00 POC Glucose (mg/dL) 89 mg/dL (65-110) 10/07/18 16:38 Random Glucose 101 mg/dL (70-110) 10/07/18 06:00 Hemoglobin A1c 6.6 % (4.2-6.5) H 10/03/18 05:30 Calcium 9.1 mg/dL (8.4-10.5) 10/07/18 06:00 Phosphorus 7.2 mg/dL (2.5-4.5) H 10/07/18 06:00 Magnesium 1.7 mg/dL (1.7-2.2) 10/07/18 06:00 Total Bilirubin 0.2 mg/dL (0.2-1.3) 10/07/18 06:00 AST 29 U/L (14-36) 10/07/18 06:00 ALT 7 U/L (7-56) 10/07/18 06:00 Alkaline Phosphatase 160 U/L (38-126) H 10/07/18 06:00 Lactate Dehydrogenase 453 U/L (333-699) 10/03/18 18:13 Total Creatine Kinase 71 U/L (35-230) 10/03/18 18:13 Troponin I 0.02 ng/mL 10/03/18 18:13 Total Protein 6.8 g/dL (5.8-8.3) 10/07/18 06:00 Albumin 3.0 g/dL (3.0-4.8) 10/07/18 06:00 Globulin 3.8 gm/dL 10/07/18 06:00 Albumin/Globulin Ratio 0.8 (1.1-1.8) L 10/07/18 06:00 Triglycerides 192 mg/dL (35-160) H 10/03/18 05:30 Cholesterol 181 mg/dL (130-200) 10/03/18 05:30 LDL Cholesterol Direct 85 mg/dL (0-129) 10/03/18 05:30 HDL Cholesterol 29 mg/dL (29-60) 10/03/18 05:30 Procalcitonin 1.04 NG/ML (0.19-0.49) H 10/04/18 07:06 TSH 3rd Generation 0.48 mIU/mL (0.46-4.68) 10/03/18 05:30 Venous Blood Potassium 4.9 mmol/L (3.6-5.2) 10/03/18 05:30 Influenza Typ A,B (EIA) Negative for flu a/b (NEGATIVE) 10/03/18 01:00 - Hospital Course Hospital Course: 62 F with pertinent medical history of CKD on Dialysis MWF, Anemia, Morbid obesity, SUMMER, HTN, DM2, HLD, and CAD with stent presented to [facility] on [place] with c/o weakness and generallized fatigue. Patient states that she was at HD on 10/02, when she became weak and was unable to finish her session.Patient admitted for leukocytosis and weakness. CTAP w/ no intra-abdominal abscess, no obstruction. Patient was seen by ID and surgery and IV course of antibiotics sta rted, no surgical intervention needed. Patient was seen by nephrology, hemodialysis, phos binders continued. Adrenal adenoma work up with plasma renin/aldosterone, plasma metanephrine negative, will need outpatient 1 mg dexa suppression test, as per nephrology. Patient was clinically improving, sepsis resolved, patient afebrile, no tachycardia, blood cultures negative. Patient will be discharged home on Sunday once Cleve lift is arranged. Morning prior to discharge patient was voicing no complaints, she denied any shortness of breath, fever, chills, chest pain. Medications were reconciled and she was discharged to home. Discharge Exam - Additional Findings Additional findings: - Constitutional Appears: Non-toxic, No Acute Distress - Head Exam Head Exam: NORMOCEPHALIC, ATRAUMATIC - Eye Exam Eye Exam: EOMI, Normal appearance - ENT Exam ENT Exam: Mucous Membranes Moist - Neck Exam Neck Exam: Normal Inspection Additional comments: R sided central access in place, no purulence/erythema noted - Respiratory Exam Respiratory Exam: Clear to Auscultation Bilateral, NORMAL BREATHING PATTERN - Cardiovascular Exam Cardiovascular Exam: REGULAR RHYTHM, +S1, +S2 - GI/Abdominal Exam GI & Abdominal Exam: Soft. absent: Tenderness Additional comments: Colostomy in place, draining brown feces Multiple well approximated abdominal wounds C/D/I - Extremities Exam Extremities Exam: Normal Inspection. absent: Calf Tenderness - Neurological Exam Neurological Exam: Alert, Awake - Skin Skin Exam: Dry, Intact, Warm Discharge Plan - Discharge Medications Prescriptions: Apixaban [Eliquis] 2.5 mg PO BID #60 tab Budesonide/Formoterol Fumarate [Symbicort] 2 puff IH BID 30 Days aer Docusate [Colace] 100 mg PO BID PRN #30 cap PRN Reason: Constipation - Follow Up Plan Condition: STABLE Disposition: DISCHARGED TO HOME CARE Instructions: Sepsis, Adult (DC) Additional Instructions: -Please follow up with your primary care doctor, Dr. Florian, within 3-5 days of being discharged. -Please follow up with your mid level net developer, Dr. Swift, within one week -Please follow up with your equestrian trainer (the lung doctor), Dr. Ayala, within one to two weeks -Please take your home medications as prescribed, please note that medication sheet given to you may not have full home list of medications as we were unable to obtain these medications from you or your pharmacy. Please continue to take your home medications. Please review all home medications with your primary care doctor. You have been given prescriptions for the medications you requested (Renagel, Protonix, Colace). You have also been started on two inhalers, please take as prescribed and make sure to follow up with Dr. Ayala. -Please return to the emergency room if symptoms return or you have new concerning symptoms. Referrals: Wes Swift MD [Staff Provider] - Elroy Florian MD [Family Provider] - Pamela Ayala MD [Staff Provider] - <Renetta De Paz R - Last Filed: 10/09/18 16:32> Provider - Provider Date of Admission: 10/02/18 21:32 Attending physician: Florentino Lewis MD Consults: 10/02/18 22:55 Nephrology Consult Routine Comment: Consulting Provider: Dae Dawn Consulting Physician: Dae Dawn Reason for Consult: Dialysis MWF 10/03/18 02:47 Nursing Referral for Palliative Care Routine Comment: Physician Instructions: Reason For Exam: EVAL 10/03/18 07:03 Infectious Disease Consult Routine Comment: Consulting Provider: Rakan Arnold Consulting Physician: Rakan Arnold Reason for Consult: SIRS, R/o sepsis 10/03/18 11:54 General Surgery Consult Routine Comment: Consulting Provider: Osmar Mckeon Consulting Physician: Osmar Mckeon Reason for Consult: abdominal pain, hernia repair in 10/04/18 11:50 Nursing Referral for Wound Care Routine Comment: Physician Instructions: wound care Reason For Exam: two abdominal wounds Hospital Course - Lab Results Lab Results: Micro Results 10/02/18 20:46 Blood Blood Culture - Final NO GROWTH AFTER 5 DAYS 10/02/18 20:46 Blood Gram Stain - Final TEST NOT PERFORMED 10/02/18 20:05 Blood Blood Culture - Final NO GROWTH AFTER 5 DAYS 10/02/18 20:05 Blood Gram Stain - Final TEST NOT PERFORMED Most Recent Lab Values WBC 9.5 10^3/uL (4.5-11.0) D 10/07/18 06:00 RBC 3.87 10^6/uL (3.5-6.1) 10/07/18 06:00 Hgb 10.4 g/dL (12.0-16.0) L 10/07/18 06:00 Hct 35.1 % (36.0-48.0) L 10/07/18 06:00 MCV 90.7 fl (80.0-105.0) 10/07/18 06:00 MCH 26.9 pg (25.0-35.0) 10/07/18 06:00 MCHC 29.6 g/dl (31.0-37.0) L 10/07/18 06:00 RDW 17.5 % (11.5-14.5) H 10/07/18 06:00 Plt Count 246 10^3/uL (120.0-450.0) 10/07/18 06:00 MPV 10.9 fl (7.0-11.0) 10/07/18 06:00 Neut % (Auto) 53.9 % (50.0-68.0) 10/07/18 06:00 Lymph % (Auto) 32.9 % (22.0-35.0) 10/07/18 06:00 Avery % (Auto) 5.5 % (1.0-6.0) 10/07/18 06:00 Eos % (Auto) 7.1 % (1.5-5.0) H 10/07/18 06:00 Baso % (Auto) 0.6 % (0.0-3.0) 10/07/18 06:00 Lymph # (Auto) 3.1 (1.2-3.4) 10/07/18 06:00 Avery # (Auto) 0.5 (0.1-0.6) 10/07/18 06:00 Eos # (Auto) 0.7 (0.0-0.7) 10/07/18 06:00 Baso # (Auto) 0.06 K/mm3 (0.0-2.0) 10/07/18 06:00 Absolute Neuts (auto) 5.12 (1.4-6.5) 10/07/18 06:00 PT 12.4 SECONDS (9.4-12.5) 10/02/18 20:05 INR 1.12 10/02/18 20:05 APTT 30.6 Seconds (26.9-38.3) 10/02/18 20:05 pO2 189 mm/Hg (30-55) H 10/03/18 05:30 VBG pH 7.28 (7.32-7.43) L 10/03/18 05:30 VBG pCO2 51.0 (40-60) 10/03/18 05:30 VBG HCO3 24.0 mmol/l (21-28) 10/03/18 05:30 VBG Total CO2 25.6 mmol.L (22-28) 10/03/18 05:30 VBG O2 Sat (Calc) 99.3 % (40-65) H 10/03/18 05:30 VBG Base Excess -3.3 mmol/L (0.0-2.0) L 10/03/18 05:30 VBG Potassium 4.9 mmol/L (3.6-5.2) 10/03/18 05:30 Sodium 138.0 mmol/L (132-148) 10/03/18 05:30 Chloride 107.0 mmol/L (98-107) 10/03/18 05:30 Glucose 90 mg/dl (65-105) 10/03/18 05:30 Lactate 0.7 mmol/L (0.7-2.1) 10/03/18 05:30 FiO2 21.0 % 10/03/18 05:30 Sodium 134 mmol/L (132-148) 10/07/18 06:00 Potassium 4.7 mmol/L (3.6-5.0) 10/07/18 06:00 Chloride 100 mmol/L (98-107) 10/07/18 06:00 Carbon Dioxide 26 mmol/L (21-33) 10/07/18 06:00 Anion Gap 13 (10-20) 10/07/18 06:00 BUN 37 mg/dL (7-21) H 10/07/18 06:00 Creatinine 5.0 mg/dl (0.7-1.2) H 10/07/18 06:00 Est GFR ( Amer) 11 10/07/18 06:00 Est GFR (Non-Af Amer) 9 10/07/18 06:00 POC Glucose (mg/dL) 89 mg/dL (65-110) 10/07/18 16:38 Random Glucose 101 mg/dL (70-110) 10/07/18 06:00 Hemoglobin A1c 6.6 % (4.2-6.5) H 10/03/18 05:30 Calcium 9.1 mg/dL (8.4-10.5) 10/07/18 06:00 Phosphorus 7.2 mg/dL (2.5-4.5) H 10/07/18 06:00 Magnesium 1.7 mg/dL (1.7-2.2) 10/07/18 06:00 Total Bilirubin 0.2 mg/dL (0.2-1.3) 10/07/18 06:00 AST 29 U/L (14-36) 10/07/18 06:00 ALT 7 U/L (7-56) 10/07/18 06:00 Alkaline Phosphatase 160 U/L (38-126) H 10/07/18 06:00 Lactate Dehydrogenase 453 U/L (333-699) 10/03/18 18:13 Total Creatine Kinase 71 U/L (35-230) 10/03/18 18:13 Troponin I 0.02 ng/mL 10/03/18 18:13 Total Protein 6.8 g/dL (5.8-8.3) 10/07/18 06:00 Albumin 3.0 g/dL (3.0-4.8) 10/07/18 06:00 Globulin 3.8 gm/dL 10/07/18 06:00 Albumin/Globulin Ratio 0.8 (1.1-1.8) L 10/07/18 06:00 Triglycerides 192 mg/dL (35-160) H 10/03/18 05:30 Cholesterol 181 mg/dL (130-200) 10/03/18 05:30 LDL Cholesterol Direct 85 mg/dL (0-129) 10/03/18 05:30 HDL Cholesterol 29 mg/dL (29-60) 10/03/18 05:30 Procalcitonin 1.04 NG/ML (0.19-0.49) H 10/04/18 07:06 TSH 3rd Generation 0.48 mIU/mL (0.46-4.68) 10/03/18 05:30 Venous Blood Potassium 4.9 mmol/L (3.6-5.2) 10/03/18 05:30 Influenza Typ A,B (EIA) Negative for flu a/b (NEGATIVE) 10/03/18 01:00 Attending/Attestation - Attestation I have personally seen and examined this patient.: Yes I have fully participated in the care of the patient.: Yes I have reviewed all pertinent clinical information, including history, physical exam and plan: Yes Notes (Text): Please note this DC summary is for 10/07/18 Patient seen and examined by me with resident at approximately 10:10AM and prior to discharge on 10/07/18. Case including discharge plan discussed with resident. Agree with above with following additions/corrections. Patient is a 62-year-old female with past medical history significant for end- stage renal disease on dialysis, chronic anemia, colorectal cancer status post resection and placement of colostomy, morbid obesity, obstructive sleep apnea, asthma, chronic back pain, degenerative joint disease, sciatica, type 2 diabetes, hypertension, hypercholesterolemia, coronary artery disease with stent placement, pulmonary embolism and DVT on Eliquis the presented to emergency room with generalized weakness and fatigue. Please see H&P for full details. Patient was found to have SIRS, history of rectal cancer status post colostomy, history of hypercoagulable state on Eliquis, insulin-dependent type 2 diabetes, hypertension, morbid obesity, end-stage renal disease on dialysis, coronary artery disease, history of PE status post infrarenal IVC filter, asthma, obstructive sleep apnea, and hyperlipidemia. Patient was seen by surgical team for possible intra-abdominal infection secondary to multiple abdominal surgeries. Patient was also seen by infectious disease doctor. Patient was started on meropenem and doxycycline. CT abdomen and pelvis per radiologist showed no evidence of intra-abdominal abscess. Blood cultures showed no growth. Chest x-ray per radiologist showed no active disease. Bilateral lower extremity venous Doppler showed no evidence DVT. Antiobiotics were stopped after 4 days. Leukocytosis resolved and patient was afebrile. Patient was seen by pulmonary for asthma. Paitent was treatmetn with nebulizer treatments, Brovan, and pulmicort. Per pulmonary, patient was given RX for symbicort and ventolin HFA on discharge. Patient was given BIPAP at bedtime, however, patient refused. Patietn was continued on Metoprolol for hypertension. Patient was continued on lipitor for hyperlipidemia. Patient was continued on ELiquis for history of PE and hypercoaguable state. Patient was continued on ASA, lipitor, and metoprolol for history of CAD. Patient was set up with a Cleve lift at home prior to discharge as patient is primarly bed bound secondary to morbid obesity. Patient was seen by mid level net developer and dialysis was continued. Patient was unable to provide a list of accurrate home medications. Patient's pharmacy was not updated on home medications. Patient was advised to stop all home blood pressure medications except for home metoprolol. Patient stated that she does not take any other blood pressure medications at home. Given refills on medications requested which were Renagel, Protonix, and Colace. Patient was advised that showed need to review all her home medications with her primary care doctor. Patient was feeling better. Patient was cleared for discharge by all con sultants. Patient was discharged home. On day of discharge, patient stated she was feeling much better. Fatigue and weakness improved. No abdominal pain. No nausea or vomiting. No chest pain or palpitations. No shortness of breath. No fevers or chills. No dysuria. No headaches or dizziness. Physical exam: General: Awake and alert lying in bed in no acute distress HEENT: Normocephalic, atraumatic. Extraocular muscles intact. Pupils equal and reactive, no scleral icterus. Oropharynx is pink and moist. Neck is supple. Cardiovascular: Normal rhythm. Normal S1 and S2. No murmurs, rubs, or gallops appreciated Pulmonary: Normal respiratory effort. No rhonchi, rales, or wheezing appreciated Gastrointestinal: Soft, nondistended. Nontender. Positive bowel sounds all 4 quadrants. No guarding. Morbid obesity. Colostomy bag in place with brown stool. Musculoskeletal: Moves all extremities. No calf tenderness. No edema appreciated. Central nervous system: AAOx3. Dermatologic: Skin warm and dry. Please see chart for full details. Follow up instructions: Patient to follow up with primary care doctor within 3-5 days of discharge. Patient to follow up with mid level net developer within 1 week. Hussein montanez follow up with equestrian trainer within 1-2 weeks. Patient to review all home medications with her primary care doctor. All instructions explained to the patient in detail. Patient both understands and agrees to all instructions. Written instructions also given. Time spent in discharging the patient including chart review, medication reconciliation, discussion with the patient, medical records analyst, consultants, and nursing staff was approximately 45 minutes.
[2018-10-07 19:32] VITALS: BP 140/70
--- NOTE | 2018-10-08 00:24 | PN ---
DATE: 10/07/2018 SUBJECTIVE: The patient is in bed, in no acute distress, nontoxic, chronically sick. PHYSICAL EXAMINATION: VITAL SIGNS: Temperature of 98, blood pressure is 180/60, respiratory rate of 19, heart rate of 85. HEENT: Unremarkable. NECK: Supple. LUNGS: Have decreased breath sounds. HEART: Normal S1, S2. ABDOMEN: Soft. LABORATORY EXAMINATION: Reveals a white count of 9.5, hemoglobin of 10, platelets of 246, BUN of 37, creatinine of 5, and serology is noted, and microbiology reveals the blood cultures are negative. ASSESSMENT AND PLAN: She is a 62-year-old female who was seen earlier today in 377 with systemic inflammatory response syndrome and admitted with leukocytosis and low grade fevers. Cultures negative. CAT scan negative, and received 4 days of doxycycline and meropenem, currently off of antibiotics. The patient is at risk for developing nosocomial infections. Overall prognosis is poor. Lawrence Cheek MD
== END 2018-10-07 19:49 | disposition home health service (06) | DRG 871 ==
LOC: ED 19:02 → ERH 21:32 → 2RNO 10-03 02:08 → 3RSO 10-03 20:08
PROVIDERS: ADMIT Internal Medicine; ATTEND Internal Medicine
PROC: 5A1D70Z Performance of Urinary Filtration, Intermittent, Less than 6 Hours Per Day (ICD-10-PCS; principal; 2018-10-03)
PROC: 5A1D70Z Performance of Urinary Filtration, Intermittent, Less than 6 Hours Per Day (ICD-10-PCS; 2018-10-05)
DX: A41.9 Sepsis, unspecified organism (principal); N18.6 End stage renal disease; J96.12 Chronic respiratory failure with hypercapnia; I13.2 Hypertensive heart and chronic kidney disease with heart failure and with stage 5 chronic kidney disease, or end stage renal disease; Z68.42 Body mass index [BMI] 45.0-49.9, adult; E66.2 Morbid (severe) obesity with alveolar hypoventilation; R65.10 Systemic inflammatory response syndrome (SIRS) of non-infectious origin without acute organ dysfunction; G47.33 Obstructive sleep apnea (adult) (pediatric); E11.22 Type 2 diabetes mellitus with diabetic chronic kidney disease; I50.9 Heart failure, unspecified; I25.10 Atherosclerotic heart disease of native coronary artery without angina pectoris; J44.9 Chronic obstructive pulmonary disease, unspecified; I27.20 Pulmonary hypertension, unspecified; K21.9 Gastro-esophageal reflux disease without esophagitis; D64.9 Anemia, unspecified; M54.16 Radiculopathy, lumbar region; D35.02 Benign neoplasm of left adrenal gland; E55.9 Vitamin D deficiency, unspecified; E78.5 Hyperlipidemia, unspecified; Z99.2 Dependence on renal dialysis; Z85.048 Personal history of other malignant neoplasm of rectum, rectosigmoid junction, and anus; Z86.711 Personal history of pulmonary embolism; Z86.718 Personal history of other venous thrombosis and embolism; Z91.19 Patient's noncompliance with other medical treatment and regimen; Z95.5 Presence of coronary angioplasty implant and graft; Z74.01 Bed confinement status; Z79.4 Long term (current) use of insulin; Z79.01 Long term (current) use of anticoagulants; Z93.3 Colostomy status